=== PATIENT | female | born 1960 | race Caucasian/White ===

== ENCOUNTER → 2017-12-28 10:35 | Outpatient (REF) | payer MEDICARE, MEDICAID, SELFPAY ==
[2017-12-28 13:06] LABS: Occult Blood,Stool Negative (Negative)
[2017-12-28 13:06] LABS: Occult Blood,Stool Negative (Negative)
== END ==
LOC: LAB 10:35
PROVIDERS: Visit Provider Emergency Medicine
DX: D64.9 Anemia, unspecified (principal)
CPT/HCPCS: 82272; G0328

== ENCOUNTER → 2018-03-10 06:59 | Outpatient (CLI) | payer MEDICARE, MEDICAID, SELFPAY ==
--- NOTE | 2018-03-10 07:00 | CA_ITS ---
PROCEDURE: 2-D M-mode and color Doppler study INDICATIONS FOR THE TEST: Chest pain COPD Heart Murmur Tobacco SmokingX Palpitations Fatigue Syncope EdemaX HypertensionXDiabetes MellitusX Rheumatic Fever SOB CARDOSO Obesity HyperlipidemiaX Family History HD Additional History CAD,CVA PATIENT INFORMATION HEIGHT: 64 WEIGHT:215 GENDER: Female B/P:150/91 2-D/M-MODE INTERPRETATION: 2-D MEASUREMENTS OBSERVED VALUES IN CMS Right Ventricular Dimension (RVDd) 3.0 Interventricular Septum (Thickness)(IVsd) 1.1 Left Ventricular Internal Dimensions(LVIDd) 5.5 Left Ventricular Posterior Wall (Thickness)(LVPWd) 1.1 Aortic Root 3.2 Aortic Cusp Separation 1.4 Left Atrial Dimensions (LAD) 3.5 2D 1. Left atrium is mildly enlarged, left ventricle is normal size, mild concentric left ventricular hypertrophy, visually estimated ejection fraction 55% with no obvious regional wall motion abnormality. Endocardial surface of poorly visualized. 2. The right atrium and right ventricle are mildly enlarged with normal contractility. 3. The aortic valve is minimally thickened and fibrosed. 4. The mitral and tricuspid valve leaflets are minimally thickened. 5. The pulmonic valve is poorly visualized. 6. No significant pericardial effusion noted. DOPPLER INTERROGATION: Doppler interrogation of the aortic, mitral and tricuspid valvular presence of mild mitral and tricuspid regurgitation, tricuspid and jet velocity is insufficient for calculation of the right ventricular systolic pressure, grade 1 diastolic dysfunction seen with tissue Doppler evidence of raised left atrial pressure. CONCLUSION: 1. Mildly enlarged left atrium, normal left ventricular size, mild concentric left ventricular hypertrophy, visually estimated ejection fraction 55% with no obvious regional wall motion abnormality, endocardial surface of poorly visualized, grade 1 diastolic dysfunction seen with tissue Doppler evidence of raised left atrial pressure. 2. Mildly enlarged right ventricle with normal contractility. 3. Mild mitral and tricuspid regurgitation 4. No significant pericardial effusion noted.
--- NOTE | 2018-03-10 07:00 | NM_ITS ---
History and Indications: History of OR, hypertension, diabetes, hyperlipidemia, tobacco use, family history Procedure: Patient received a 0.4 mg of Lexiscan, resting heart rate was 71 bpm, resting blood pressure 171/96, with Lexiscan maximum heart rate achieved was 89 bpm which is less than 85% of the maximum predicted heart rate and a blood pressure was 145/85. With Lexiscan patient under shortness of breath and nausea. Electrocardiogram: Resting electrocardiogram showed sinus rhythm, with Lexiscan there is less than 1.[address] segment depression the baseline EKG. The EKG portion of the Lexiscan Myoview is nondiagnostic. Cardiac stress and resting SPECT images: Cardiac stress and resting SPECT images were obtained using technetium 99 Myoview 31.2 mCi at stress and 9.8 mCi at rest, gated SPECT further analysis of segmental wall motion and calculation of the ejection fraction also done. Cardiac stress and rest SPECT images show a partial reversible defect seen in the anteroapical and apical wall consistent with area of mixed ischemia and scar, computer derived ejection fraction of 47% with anteroapical and apical wall hypokinesis. Right ventricle is normal size and contractility. Conclusion: 1. The EKG portion of the Lexiscan Myoview is nondiagnostic. 2. Scintigraphic evidence of small area of extensive ischemia and scar involving the anteroapical and apical wall, computer derived ejection fraction is(& 47% with segmental wall motion abnormality described above, right ventricle is normal size and contractility. 3. Abnormal Lexiscan Myoview study.
--- NOTE | 2018-03-10 09:36 | HMH.ITSHM ---
carvedilol lyricca prilosec atorvastatin
== END ==
PROVIDERS: PCP Emergency Medicine; Visit Provider Internal Medicine
DX: I25.10 Atherosclerotic heart disease of native coronary artery without angina pectoris (principal); R94.31 Abnormal electrocardiogram [ECG] [EKG]
CPT/HCPCS: 78452; 93017; 93306; A9502; J2785

== ENCOUNTER → 2018-04-03 10:40 | Outpatient (CLI) | payer MEDICARE, MEDICAID, SELFPAY ==
--- NOTE | 2018-04-03 10:41 | CI_ITS ---
Cerebrovascular Exam Indications: 785.9 Bruit. 434.91 Cerebral artery occlusion unspecified with cerebral infarction. 782.0 Disturbance of skin sensation. IMPRESSIONS 1. The bilateral vertebral arteries are patent with normal antegrade flow. 2. Study suggests less than 20% stenosis involving the right internal carotid artery. 3. Study suggests less than 20% stenosis involving the left internal carotid artery. History: Left-sided weakness. Coronary artery disease. Risk factors: Hypertension. Diabetes mellitus. Hyperlipidemia. Labs, prior tests, procedures, and surgery: Left carotid stent. Labs, prior tests, procedures, and surgery: Left carotid stent. Carotid duplex study. Complete study and Doppler flow study including spectral analysis, color and stoner scale imaging. Height: Height: 162.6cm. Height: 64in. Weight: Weight: 95.7kg. Weight: 210.6lb. Body mass index: BMI: 36.2kg/m^2. Body surface area: BSA: 2.12m^2. Location: Vascular laboratory. Patient status: Outpatient. Tables: Arterial flow: + +--------+--------+ Location V sys V ed + +--------+--------+ Right CCA - proximal 74.6cm/s 18.9cm/s + +--------+--------+ Right CCA - distal 77cm/s 22.8cm/s + +--------+--------+ Right ECA 69.1cm/s -------- + +--------+--------+ Right ICA - proximal 80.1cm/s 20.4cm/s + +--------+--------+ Right ICA - mid 72.3cm/s 23.6cm/s + +--------+--------+ Right ICA - distal 56.6cm/s 21.2cm/s + +--------+--------+ Right vertebral 41.6cm/s -------- + +--------+--------+ Left CCA - proximal 77cm/s 18.1cm/s + +--------+--------+ Left CCA - distal 70.7cm/s 18.1cm/s + +--------+--------+ Left ECA 195cm/s -------- + +--------+--------+ Left ICA - proximal 75.4cm/s 21.2cm/s + +--------+--------+ Left ICA - mid 82.5cm/s 28.3cm/s + +--------+--------+ Left ICA - distal 58.4cm/s 19.7cm/s + +--------+--------+ Left vertebral 51.6cm/s -------- + +--------+--------+ Velocity ratios: + + + + + + Right, V sys Right, V ed Left, V sys Left, V ed + + + + + + Max ICA/dist CCA 1.04 1.04 1.17 1.56 + + + + + + (Report amended ) Electronically signed by: Adam Aponte [id number]
== END ==
PROVIDERS: PCP Emergency Medicine; Visit Provider Internal Medicine
DX: R42 Dizziness and giddiness (principal); I69.398 Other sequelae of cerebral infarction; I65.29 Occlusion and stenosis of unspecified carotid artery; R20.9 Unspecified disturbances of skin sensation
CPT/HCPCS: 93880

== ENCOUNTER → 2018-04-21 09:49 | Outpatient (CLI) | payer MEDICARE, MEDICAID, SELFPAY ==
[2018-04-21 10:37] VITALS: PULSE 81; PULSE 83
== END ==
PROVIDERS: PCP Emergency Medicine; Visit Provider Internal Medicine
DX: Z87.891 Personal history of nicotine dependence (principal)
CPT/HCPCS: 94060; 94640

== ENCOUNTER → 2019-02-06 12:54 | Outpatient (CLI) | payer MEDICARE, MEDICAID, SELFPAY ==
--- NOTE | 2019-02-06 13:16 | XR_ITS ---
XR DEXA axial skeleton HISTORY: ITS.REASON: [facility] MED USE,POST MENOPAUSAL ORDERING PHYSICIAN: Sharon Tovar MD PATIENT AGE: 58 years COMPARISON: None FINDINGS: The BMD measured at the Total Left femoral neck is 0.603 g/cm squared with a T score of -3.2. This is considered Osteoporotic according to the World Health Organization criteria. Fracture risk is High. Treatment is advised. IMPRESSION: Osteoporosis with high fracture risk. Treatment is advised. Suggest follow-up exam January 2020
--- NOTE | 2019-02-06 13:20 | CT_ITS ---
CT lung screening EXAM: CT LUNG LOW DOSE WO CONTRAST HISTORY: ITS.REASON: H/O NICOTINE DEPENDENCE ORDERING PHYSICIAN: Sharon Tovar MD PATIENT AGE: 58 years COMPARISON: None TECHNIQUE: The exam was performed on a GE Light Speed [address] scanner using 2.90 mGy CTDI. A low dose helical CT CHEST was performed on a multi-detector scanner. All CT scans at the facility use one or more dose reduction, viz: automated exposure control, ma/kV adjustment per patient size (including targeted exams where dose is matched to indication, i.e. head), or iterative reconstruction technique. The LDCT was performed in a facility that meets the criteria for the screening program. Data regarding this exam was submitted to ACR which is an approved registry. The order for this exam indicates that it came as a result of a lung cancer screening counseling shard decision-making visit that included all the elements required of such a visit including smoking cessation. The radiologist interpreting this exam meets the CMS criteria for the LDCT lung cancer screening program. The exam is reported using the Lung-RADS classification scale and reported to the ACR registry. NOTE: This study was performed for the specific purposes of lung cancer screening and is not an alternative to diagnostic chest CT. RADIATION DOSE: CTDI vol(CT dose Index-volume) = 2.90mG DLP (Dose Length Product) = 101.07 mGcm FINDINGS: Artifact is present in the right shoulder prosthesis. Calcified granuloma is present in the right lower lobe. No suspicious pulmonary nodules. Small precarinal lymph node is present at 1.5 cm and there is a small node in the right axilla at 1.1 cm. There has been prior right mastectomy. Coronary artery calcifications are present. There is mild thyromegaly IMPRESSION: 1. Lung RADS Category: 1, negative 2. Other findings: Coronary artery calcifications, mild thyromegaly RECOMMENDATIONS: 12 month LDCT follow-up
== END ==
PROVIDERS: PCP Emergency Medicine; Visit Provider Internal Medicine Medical Oncology
DX: Z78.0 Asymptomatic menopausal state (principal); Z12.2 Encounter for screening for malignant neoplasm of respiratory organs; Z87.891 Personal history of nicotine dependence; Z85.3 Personal history of malignant neoplasm of breast
CPT/HCPCS: 77080

== ENCOUNTER → 2019-02-20 08:47 | Outpatient (CLI) | payer MEDICARE, MEDICAID, SELFPAY ==
--- NOTE | 2019-02-20 08:54 | MM_ITS ---
MM Dig SC mamm unilat LT CAD CAD Screening COMPARISON: Diagnostic digital mammogram right breast 03/13/2013 and post ultrasound-guided biopsy right mammogram 03/26/2013 and digital bilateral mammograms with CAD 02/27/2013 INDICATION: There is been previous right mastectomy, there is a history of breast cancer patient maternal aunt. TECHNIQUE: Standard CC and MLO images were obtained. R2 CAD reviewed. FINDINGS: Scattered fibroglandular densities are seen throughout the breast. There are couple benign-appearing calcifications noted. There is minimal arterial calcification seen as well. There is a possible small asymmetric density central portion versus summation shadow and recommend patient return for spot compression views and ultrasound may be necessary as well. IMPRESSION: Fibrofatty parenchyma with possible asymmetric density as noted BI-RADS Category: 0 Need Additional Imaging Evaluation RECOMMENDED FOLLOW-UP: IMM - IMMEDIATE FOLLOW-UP RECOMMENDED (A letter has been sent to the patient regarding results of the study.)
== END ==
PROVIDERS: PCP Emergency Medicine; Visit Provider Emergency Medicine
DX: Z12.31 Encounter for screening mammogram for malignant neoplasm of breast (principal)
CPT/HCPCS: 77067

== ENCOUNTER → 2019-03-09 14:23 | Outpatient (CLI) | payer MEDICARE, MEDICAID, SELFPAY ==
--- NOTE | 2019-03-09 14:25 | MM_ITS ---
MM Dig mamm DX unilat LT CAD, US breast LT complete INDICATION: Follow-up abnormal mammogram ORDERING PHYSICIAN: Daniel Barba MD PATIENT AGE: 58 years COMPARISON: 02/20/2019, 03/13/2013 TECHNIQUE: Problem-solving views of the left breast performed along with left breast ultrasound . Technologist comments that the patient is very difficult to perform a mammogram on due to the fact that she has had a prior stroke. FINDINGS: On the cc view there was some persistent asymmetric density in the medial aspect of the left breast on the regular compression view. On the focal spot compression view this appeared less apparent with some faint residual density noted in this area but no definite nodule evident. There is some faint density noted in the upper aspect of the left breast on the MLO view spot. Left breast ultrasound: No discrete mass is evident. There are small nodes in the axilla. Specifically, no new nodules are demonstrated in the medial aspect or upper aspect of the left breast. IMPRESSION: Probably benign. There remains an asymmetric density in the upper inner aspect of left breast but no sonographic correlate. This area is also faint on the mammogram. Recommend 6 month mammographic follow-up with spot compression views BI-RADS Category: 3 Probably Benign Finding Short Term Follow-up RECOMMENDED FOLLOW-UP: 6M - 6 MONTH FOLLOW-UP (A letter has been sent to the patient regarding results of the study.)
== END ==
PROVIDERS: PCP Emergency Medicine; Visit Provider Emergency Medicine
DX: R92.8 Other abnormal and inconclusive findings on diagnostic imaging of breast (principal); Z85.3 Personal history of malignant neoplasm of breast
CPT/HCPCS: 76641; 77065

== ENCOUNTER → 2019-09-20 15:53 | Outpatient (CLI) | payer MEDICARE, MEDICAID, SELFPAY ==
[2019-09-20 16:02] LABS: Adenovirus F 40/41, stool Not Detected (NotDetected); Astrovirus Not Detected (NotDetected); Campylobacter Not Detected (NotDetected); Clostridium Difficile A/B, PCR Not Detected (NotDetected); Cryptosporidium Not Detected (NotDetected); Cyclospora Cayetanesis Not Detected (NotDetected); Entamoeba histolytica Not Detected (NotDetected); Enteroaggregative E coli Not Detected (NotDetected); Enteropathogenic E coli Not Detected (NotDetected); Enterotoxigenic E coli Not Detected (NotDetected); Giardia lamblia Not Detected (NotDetected); Norovirus Not Detected (NotDetected); Plesimonas Shigalloides, PCR Not Detected (NotDetected); Rotavirus A Not Detected (NotDetected); Salmonella, PCR Not Detected (NotDetected); Sapovirus Not Detected (NotDetected); Shiga-like toxin E coli Not Detected (NotDetected); Shigella Enterovasive E coli Not Detected (NotDetected); Vibrio Cholerae Not Detected (NotDetected); Vibrio, PCR Not Detected (NotDetected); Yersinia Entercolitica, PCR Not Detected (NotDetected)
== END ==
PROVIDERS: Visit Provider Emergency Medicine
DX: R19.7 Diarrhea, unspecified (principal)
CPT/HCPCS: 87507

== ENCOUNTER → 2019-09-21 12:46 | Outpatient (CLI) | payer MEDICARE, MEDICAID, SELFPAY ==
--- NOTE | 2019-09-21 12:46 | MM_ITS ---
PROCEDURE: MM DIG MAMM DX UNILAT LT CAD with 3D tomography CLINICAL INDICATION: abnormal mamm Follow-up abnormal mammogram COMPARISON: DIG MAMM-SCREEN [facility] from 02/20/2019 DIG MAMM-DX UNI-LT from 03/09/2019 TECHNIQUE: Standard CC and MLO images and 3D Tomosynthesis was obtained. R2 CAD reviewed. FINDINGS: Average fibroglandular tissue. Previously noted asymmetry in the upper and medial aspect of the left breast is less apparent. There is less muscle coverage on today's images. Benign-appearing calcifications are present. IMPRESSION: Benign findings, no evidence of malignancy. Recommend continue screening exam February 2020 BI-RAD Category: 2 Benign Finding(s) FOLLOW-UP: 6M 6Month Follow-up (A letter has been sent to the patient regarding results of the study.) Dictated by: Adam Aponte MD 09/22/2019 10:10 Electronically signed by Adam Aponte MD in [place] 09/22/2019 10:10
== END ==
PROVIDERS: PCP Emergency Medicine; Visit Provider Emergency Medicine
DX: R92.8 Other abnormal and inconclusive findings on diagnostic imaging of breast (principal); Z85.3 Personal history of malignant neoplasm of breast
CPT/HCPCS: 77061; 77065; G0279

== ENCOUNTER → 2020-01-31 14:26 | Outpatient (CLI) | payer MEDICARE, MEDICAID, SELFPAY ==
[2020-01-31 15:25] LABS: Basophils # 0.1 K/mm3 (0-0.2); Basophils % 0.8 % (0.1-2.0); Eosinophils # 0.1 K/mm3 (0.0-0.4); Eosinophils % 1.5 % (0.1-12.0); Hematocrit 33.5 % (37.0-47.0); Hemoglobin 10.1 g/dL (12.2-16.2); Lymphocytes # 1.6 K/mm3 (0.7-4.5); Lymphocytes % 21.6 % (10-50); Mean Corpuscular HGB Conc 30.2 g/dL (31.8-35.4); Mean Corpuscular Hemoglobin 23.5 pg (27.0-31.2); Mean Corpuscular Volume 77.9 fl (81-99); Mean Platelet Volume 7.7 fl (7.4-10.4); Monocytes # 0.6 K/mm3 (0.1-1.0); Monocytes % 7.4 % (1.7-9.3); Neutrophils # 5.2 K/mm3 (1.8-7.8); Neutrophils % 68.7 % (37.0-80.0); Platelet Count 311 K/mm3 (142-424); Red Cell Distribution Width 16.3 % (11.5-17.5); White Blood Count 7.5 K/mm3 (4.8-10.8)
[2020-01-31 18:26] LABS: Chloride 101 mmol/L (98-107); Potassium 4.4 mmoL/L (3.5-5.1); Sodium 134 mmol/L (136-145)
[2020-01-31 18:28] LABS: Alanine Aminotransferase 42 U/L (12-78); Aspartate Amino Transferase 79 U/L (14-36); Blood Urea Nitrogen 7 mg/dl (7-17); Estimated Glomerular Filt Rate 46 ml/min (>60); GFR (African American) 55 ML/MIN (>60)
[2020-01-31 18:29] LABS: Albumin Level 3.8 g/dl (3.5-5.0); Albumin/Globulin Ratio 1.3 (1.1-1.8); Alkaline Phosphatase 95 U/L (38-126); Anion Gap 15.4 mEq/L (5-15); Bilirubin,Total 0.3 mg/dl (0.2-1.3); Calcium 8.9 mg/dl (8.4-10.2); Carbon Dioxide 22 mmol/L (22.0-30.0); Glucose 135 mg/dl (74-100); Iron 28 ug/dL (37-170); Total Protein,Serum 6.8 g/dl (6.3-8.2)
[2020-01-31 18:37] LABS: Total Iron Binding Capacity 373 ug/dL (265-497)
[2020-02-01 15:30] LABS: Ferritin 5.97 ng/ml (11.1-264)
== END ==
PROVIDERS: Visit Provider Internal Medicine Medical Oncology
DX: D50.9 Iron deficiency anemia, unspecified (principal)
CPT/HCPCS: 36415; 80053; 82728; 83540; 83550; 85025

== ENCOUNTER 2020-02-04 12:25 | Outpatient (CLI) | payer MEDICARE, MEDICAID, SELFPAY ==
[2020-02-04 12:48] VITALS: BP 121/62; PULSE 83; RESP 18; TEMP 37.1; O2SAT 96
[2020-02-04 13:25] VITALS: BP 139/80; PULSE 77; RESP 18; O2SAT 97
== END 2020-02-04 13:25 | disposition home or self-care (01) ==
LOC: INF 12:25
PROVIDERS: Visit Provider Internal Medicine Medical Oncology
DX: D50.9 Iron deficiency anemia, unspecified (principal); M85.89 Other specified disorders of bone density and structure, multiple sites; T45.4X5A Adverse effect of iron and its compounds, initial encounter
CPT/HCPCS: 96365; 96372; J0897; J1439

== ENCOUNTER 2020-02-11 08:14 | Outpatient (CLI) | payer MEDICARE, MEDICAID, SELFPAY ==
--- NOTE | 2020-02-11 08:19 | CT_ITS ---
PROCEDURE: CT LUNG SCREENING CLINICAL INDICATION: H/O NICLOTINE DEPENDENCE Greater than 30 pack-year smoking history, asymptomatic for lung cancer COMPARISON: LUNGSCREEN CT lung screening from 02/06/2019 TECHNIQUE: The exam was performed on a GE Light Speed [address] scanner using 2.90 mGy CTDI. A low dose helical CT CHEST was performed on a multi-detector scanner. All CT scans at the facility use one or more dose reduction, viz: automated exposure control, ma/kV adjustment per patient size (including targeted exams where dose is matched to indication, i.e. head), or iterative reconstruction technique. The LDCT was performed in a facility that meets the criteria for the screening program. Data regarding this exam was submitted to ACR which is an approved registry. The order for this exam indicates that it came as a result of a lung cancer screening counseling shard decision-making visit that included all the elements required of such a visit including smoking cessation. The radiologist interpreting this exam meets the CMS criteria for the LDCT lung cancer screening program. The exam is reported using the Lung-RADS classification scale and reported to the ACR registry. NOTE: This study was performed for the specific purposes of lung cancer screening and is not an alternative to diagnostic chest CT. RADIATION DOSE: CTDI vol(CT dose Index-volume) = 2.90mG DLP (Dose Length Product) = 98.73 mGcm Lung Rads Category: FINDINGS: Old granulomatous disease. There is a 15 mm sub solid opacity in the right middle lobe image 45 series 3. This was not present on the previous exam. Atelectasis or fibrotic change noted in the right middle lobe. 4 mm noncalcified nodule image 59 series 3 right lower lobe unchanged OTHER FINDINGS: Coronary artery calcifications. Thyromegaly. Scattered small mediastinal lymph nodes not significantly changed. Small axillary nodes not significantly changed. IMPRESSION: Lung rads category 4 a mildly suspicious. 15 mm sub solid opacity right middle lobe. Recommend [address] without and with contrast Dictated by: Adam Aponte MD 02/17/2020 21:59 Electronically signed by Adam Aponte MD in [place] 02/17/2020 21:59
[2020-02-11 08:58] VITALS: BP 133/70; PULSE 72; RESP 18; TEMP 36.6; O2SAT 98
[2020-02-11 09:28] VITALS: BP 139/79; PULSE 76; RESP 18; O2SAT 97
[2020-02-11 09:35] VITALS: BP 148/76; PULSE 78; RESP 18; O2SAT 97
== END 2020-02-11 09:35 | disposition home or self-care (01) ==
LOC: RAD 08:30 → INF 08:43
PROVIDERS: PCP Emergency Medicine; Visit Provider Internal Medicine Medical Oncology
DX: Z87.891 Personal history of nicotine dependence (principal); Z12.2 Encounter for screening for malignant neoplasm of respiratory organs; D50.9 Iron deficiency anemia, unspecified; T45.4X5A Adverse effect of iron and its compounds, initial encounter
CPT/HCPCS: 96365; J1439

== ENCOUNTER → 2020-03-19 13:39 | Outpatient (CLI) | payer MEDICARE, MEDICAID, SELFPAY ==
--- NOTE | 2020-03-19 13:44 | MM_ITS ---
PROCEDURE: MM DIG SC MAMM UNILAT LT CAD DIGITAL BREAST TOMOSYNTHESIS INCLUDED Patient Age:59Y CLINICAL INDICATION: HX OF BREAST CANCER Right mastectomy for breast cancer. COMPARISON: DIG MAMM-SCREEN [facility] from 02/20/2019 MM DIG MAMM DX UNILAT LT CAD from 09/21/2019 TECHNIQUE: Standard CC and MLO images were obtained. R2 CAD reviewed. Bilateral digital breast tomosynthesis included. FINDINGS: Left breast appear stable with no new areas of concern. Average fibroglandular tissue with of moderate density... No dominant nor suspicious mass but no suspicious calcifications. Follow-up 1 year left breast recommended stable left IMPRESSION: Stable screening mammogram left breast. Follow-up 1 year recommended BI-RAD Category: 1 Negative FOLLOW-UP: 1YR 1 Year Follow-up (A letter has been sent to the patient regarding results of the study.) Dictated by: Jaylen Yung MD 03/24/2020 15:35 Electronically signed by Jaylen Yung MD in [place] 03/24/2020 15:35
--- NOTE | 2020-03-19 13:45 | US_ITS ---
PROCEDURE: US BREAST LT COMPLETE CLINICAL INDICATION: HX OF BREAST CANCER Follow-up left breast, history of right breast cancer COMPARISON: US BREASTLT US breast LT complete from 03/09/2019 FINDINGS: No cystic or solid lesions evident. IMPRESSION: BI-RADS category 1, negative Recommend annual follow-up Dictated b Adam Aponte MD 03/27/2020 18:08 Adam Aponte MD in [place] 03/27/2020 18:08
== END ==
PROVIDERS: PCP Emergency Medicine; Visit Provider Emergency Medicine
DX: Z85.3 Personal history of malignant neoplasm of breast (principal); Z12.31 Encounter for screening mammogram for malignant neoplasm of breast
CPT/HCPCS: 76641; 77063; 77067

== ENCOUNTER → 2020-03-25 07:34 | Outpatient (CLI) | payer MEDICARE, MEDICAID, SELFPAY ==
--- NOTE | 2020-03-25 | CA_ITS ---
APPROVED REPORT Exam: Pharmacologic Technologist: Denise Leslie Ht: 5 ft 3 in Wt: 212 lbs BSA: 1.98 m2 HR: 83 bpm BP: 132/64 mmHg Indications: Abnormal ekg 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 Medications: Amlodipine,,,,, Omeprazole,,,,, Aspirin,,,,, Metformin,,,,, Atorvastatin,,,,, HCTZ,,,,, Carvedilol,,,,, MeLOXICAM,,,,, CloPIdogrel,,,,, Baclofen,,,,, Venlafaxine,,,,, Trazodone,,,,, Stress Test Details Test: LEXISCAN HR Resting HR: 79 bpm Max Heart Rate (APMHR): 160 bpm Max HR Achieved: 93 bpm Target HR (85% APMHR): 136 bpm % of APMHR: 58 Recovery HR: 86 bpm BP Resting BP: 132.0/64.0 mmHg Max BP: 138.0/67.0 mmHg Recovery BP: 132.0/66.0 mmHg ECG Clinical Exercise duration: 04:00 min Highest Stage Achieved: Stress ECG Conclusion Resting ECG: Normal sinus rhythm, cannot rule out old septal IN, NS T wave abnormalities. Symptoms: Shortness of air, nausea, malaise. No chest pain. Arrhythmias/Ectopy: None ST-T Changes: Exaggeration of baseline T wave abnormalities. Conclusion: Unremarkable Lexiscan stress. [employer]view images reported seperately. Electronically signed by : Clint Larson, 03/25/2020 18:35:18
--- NOTE | 2020-03-25 07:34 | NM_ITS ---
APPROVED REPORT Exam: Nuclear Stress Test Indication: Abnormal EKG, Fatigue, CAD, Hx of PA, HTN, DM, Tobacco use, Family history Patient Location: Outpatient Stress Tech: Denise Leslie [place] Tech:Orquidea Pham, ARRT, RT (R)(N) Ht: 5 ft 3 in Wt: 212 lbs Bra Size: D HR: 83 bpm BP: 132/64 mmHg BSA: 1.98 m2 BMI: 37.5 History: Abnormal EKG, Fatigue, CAD, Hx of PA, HTN, DM, Tobacco use, Family history Procedure: Patient received a 0.4 mg of intravenous Lexiscan, resting heart rate 83 bpm, resting blood pressure 132/64 mmHg, with Lexiscan maximum heart rate achived was 91 bpm which is Less than 85 % of the maximum predicted heart rate and blood pressure was 138/67 mmHg. With Lexiscan, patient denied any complaint of chest pain. Electrocardiogram Resting electrocardiogram showed sinus rhythm, with Lexiscan there is less than 1.[address] segment depression noted from the baseline EKG. The EKG portion of the Lexiscan Myoview is nondiagnostic. Cardiac Stress and Resting SPECT Images: Cardiac Stress and Resting SPECT images were obtained using technetium 99m Myoview 31.0 mCi stress and 9.83 mCi at rest. Gated SPECT with analysis of segmental wall motion and calculation of the ejection fraction also done. Cardiac stress and resting SPECT images show partial reversible defect involving the anterior apical and anteroseptal wall. Consistent with mixed ischemia and scar. Computer derived ejection fraction is 53% with moderate anterior apical and anteroseptal wall hypokinesis. There is transient ischemic dilatation of the left ventricle is also seen. Conclusion: 1. The EKG portion of the Lexiscan Myoview is nondiagnostic. 2. Scintigraphic evidence of mixed ischemia and scar involving the anterior apical and anteroseptal wall, computer derived ejection fraction is 53% with segmental wall motion abnormality described above, there is transient ischemic dilatation of the left ventricle is also seen. 3. Abnormal Lexiscan Myoview study. Electronically signed by : Clint Larson, 03/25/2020 18:38:06
== END ==
PROVIDERS: PCP Emergency Medicine; Visit Provider Nurse Practitioner Family
DX: E11.59 Type 2 diabetes mellitus with other circulatory complications (principal); E78.5 Hyperlipidemia, unspecified; I11.9 Hypertensive heart disease without heart failure; I25.10 Atherosclerotic heart disease of native coronary artery without angina pectoris; I63.8 Other cerebral infarction; R60.9 Edema, unspecified; R94.31 Abnormal electrocardiogram [ECG] [EKG]; Z01.810 Encounter for preprocedural cardiovascular examination; Z72.0 Tobacco use; Z98.890 Other specified postprocedural states
CPT/HCPCS: 78452; 93017; A9502; J2785

== ENCOUNTER 2020-03-27 12:30 | Emergency (ER) | payer MEDICARE, MEDICAID, SELFPAY ==
[2020-03-27 12:32] VITALS: BP 144/74; PULSE 68; RESP 20; O2SAT 96; BMI 37.4
--- NOTE | 2020-03-27 12:40 | PC.NURSE ---
Spoke with Shauna at [facility]. States she will fax the patient's records.
--- NOTE | 2020-03-27 13:17 | CA_ITS ---
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 No reflux noted. Conclusion No evidence of DVT or superficial thrombophlebitis in the veins scanned of the left lower extremity. Electronically signed by : Adam Aponte MD 03/27/2020 17:14:12
--- NOTE | 2020-03-27 14:01 | PC.NURSE ---
Per CV lab, negative for blood clot. notified.
--- NOTE | 2020-03-27 14:15 | HMH.EDGENADL ---
ED Disposition Clinical Impression: Sunburn of first degree Disposition: Home, Self-Care Condition on Discharge: Fair Instructions: DI for Sunburn Additional Instructions: Checked your lower extremity for DVT and do not find a DVT; from your history it appears that you have a sunburn; plan is to provide you with a prescription for bacitracin; please apply this twice a day for 7 days Prescriptions: Bacitracin [Bacitracin Zinc Oint 30gm Tube] 10 gm TOPICAL BID 7 Days #60 oint...g. Transmission Status: Pending to [facility] Referrals: PCP,Hortensia [Primary Care Provider] - Time of Disposition: 14:22 - Critical Care Critical Care Time: No Attestation: On 03/27/20, the high probability of a clinically significant, sudden or life threatening deterioration of the following system(s) required my full and direct attention, intervention and personal management. The time I documented below is in addition to time spent performing reported procedures but includes the following listed in this critical care notation. Medical Decision Making - Medical Records Medical records reviewed: Yes: I reviewed the patient's medical records. - Jordi Inquiry Pt receiving controlled substance: No Vital Signs: 03/27/20 12:32 Pulse Rate [Radial] 68 Respiratory Rate 20 Blood Pressure [Right Arm] 144/74 H Blood Pressure Mean [Right Arm] 97 Blood Pressure Source [Right Arm] Automatic Cuff Blood Pressure Position [Right Arm] Sitting 02 Sat by Pulse Oximetry 96 Oxygen Delivery Method Room Air General Adult HPI - General Chief complaint: Extremity Injury, Lower Stated complaint: edema Time Seen by Provider: 03/27/20 14:00 Mode of Arrival: EMS Source of Information: Patient Limitations: No Limitations Description of Symptoms (Recalled from ER Triage Doc. by RN): While at a follow up appointment with Dr. Gudino they noticed swelling of the left foot. Patient refuses admission and says she is fine. - History of Present Illness HPI narrative: It was sent from 1 of the doctors offices with the concern that they had noticed pain and inflammation in her left leg and wanted to be evaluated for cellulitis and or DVT the patient is in no distress, states that she has been sitting out in the sun and has sunburn on both her extremities Onset (ago): day(s) Location: upper extremity, lower extremity Radiation: non-radiation Severity: mild Severity scale (1-10): 3 Quality: sharp Consistency: constant Relieving factors: none Exacerbating factors: none - Related Data Home Medications Medication Instructions Recorded Confirmed acetaminophen 500 mg tablet 500 mg PO Q6H PRN 02/28/18 03/27/20 anastrozole 1 mg tablet 1 mg PO DAILY tab 02/28/18 03/27/20 atorvastatin 40 mg tablet 40 mg PO QHS tab 02/28/18 03/27/20 carvedilol 12.5 mg tablet 12.5 mg PO BID 02/28/18 03/27/20 doxycycline monohydrate 100 mg 150 mg PO BID tab 02/28/18 03/27/20 tablet omeprazole 40 mg capsule,delayed 40 mg PO DAILY cap 02/28/18 03/27/20 release ondansetron HCl 4 mg tablet 4 mg PO QID PRN 02/28/18 03/27/20 trazodone 300 mg tablet 300 mg PO QHS 02/28/18 03/27/20 aspirin 81 mg tablet,delayed 81 mg PO DAILY tab 03/27/18 03/27/20 release loperamide 2 mg capsule 2 mg PO Q4H PRN 07/11/18 03/27/20 meloxicam 7.5 mg tablet 7.5 mg PO DAILY 07/11/18 03/27/20 alendronate 70 mg tablet 70 mg PO QWEEK 04/11/19 03/27/20 amlodipine 5 mg tablet 5 mg PO DAILY 04/11/19 03/27/20 baclofen 10 mg tablet 10 mg PO TID 04/11/19 03/27/20 pantoprazole 20 mg tablet,delayed 20 mg PO DAILY 04/11/19 03/27/20 release Clopidogrel Bisulfate [Plavix 75mg 75 mg PO QDAY 02/04/20 03/27/20 Tab] Pregabalin 50 mg PO TID 02/04/20 03/27/20 metformin 500 mg tablet 500 mg PO BID tab 03/19/20 03/27/20 venlafaxine 100 mg tablet 150 mg PO DAILY tab 03/19/20 03/27/20 pregabalin 50 mg capsule 50 mg PO TID 03/27/20 03/27/20 sitagliptin 100 mg tablet 100 mg PO DAILY 03/27/20 03/27/20
[2020-03-27 14:51] VITALS: BP 125/71; PULSE 104; O2SAT 97
[2020-03-27 15:06] VITALS: BP 125/71; PULSE 104; RESP 20; TEMP 36.7; O2SAT 97
== END 2020-03-27 15:08 | disposition home or self-care (01) ==
PROVIDERS: Emergency Provider Emergency Medicine
DX: L55.0 Sunburn of first degree (principal); R60.0 Localized edema; J44.9 Chronic obstructive pulmonary disease, unspecified; E11.9 Type 2 diabetes mellitus without complications; K21.9 Gastro-esophageal reflux disease without esophagitis; E78.5 Hyperlipidemia, unspecified; I10 Essential (primary) hypertension; I25.2 Old myocardial infarction; F41.8 Other specified anxiety disorders; I25.10 Atherosclerotic heart disease of native coronary artery without angina pectoris; F17.210 Nicotine dependence, cigarettes, uncomplicated; Z88.2 Allergy status to sulfonamides; Z88.8 Allergy status to other drugs, medicaments and biological substances
CPT/HCPCS: 93971; 99283

== ENCOUNTER → 2020-06-27 14:45 | Outpatient (CLI) | payer MEDICARE, MEDICAID, SELFPAY ==
--- NOTE | 2020-06-27 14:48 | MR_ITS ---
PROCEDURE: MR LUMBAR SPINE WO CON CLINICAL INDICATION: LBP LBP WITH RT HIP PAIN. PAINFUL TO RAISE RT LEG. SYMPTOMS [id number]. COMPARISON: No exams were available for comparison TECHNIQUE: Standard multiplanar multiecho sequences are performed without contrast. 3-D MIP and myelographic images are also rendered and reviewed FINDINGS: There is normal alignment. T11-T12: Degenerative disc disease. There is a small left paracentral disc herniation with superior extrusion. There is a cleft within the inferior endplate of the T12 vertebral body centrally very slightly eccentric toward the left extending anteriorly to posteriorly from the posterior aspect of the vertebral body to the mid way aspect of the vertebra possibly due to an old fracture. The herniated disc is causing flattening of the left aspect of the cord anteriorly the cord ends at the L1 level. T12-L1: Small left paracentral disc protrusion with degenerative disc disease and bulging disc with facet and ligamentum hypertrophy. L1-L2: Degenerative disc disease with bulging disc with mild facet and ligamentum hypertrophy. L2-L3: Mild facet and ligamentum hypertrophy. L3-L4: Mild facet and ligamentum hypertrophy. L4-5: Facet ligamentum hypertrophy with bulging disc with mild to moderate bilateral foraminal narrowing. There is bilateral lateral recess narrowing also present and borderline canal stenosis. L5-S1: Facet and ligamentum hypertrophy. There is a small right foraminal disc osteophyte complex causing some narrowing of the right foramen at this level. IMPRESSION: Abnormal MRI of the lumbar spine with multilevel lumbar spondylosis with bulging disc facet and ligamentum hypertrophy and degenerative disc disease. Please see above for detailed description at each level. T11-T12: Degenerative disc disease. There is a small left paracentral disc herniation with superior extrusion. There is a cleft within the inferior endplate of the T12 vertebral body centrally very slightly eccentric toward the left extending anteriorly to posteriorly from the posterior aspect of the vertebral body to the mid way aspect of the vertebra possibly due to an old fracture. The herniated disc is causing flattening of the left aspect of the cord anteriorly the cord ends at the L1 level. T12-L1: Small left paracentral disc protrusion with degenerative disc disease and bulging disc with facet and ligamentum hypertrophy Small right foraminal disc osteophyte complex at L5-S1 causing mild narrowing of the foramen on the right at that level. Dictated by: Adam Aponte MD 06/28/2020 15:37 Adam Aponte MD in [place] 06/28/2020 15:37
== END ==
PROVIDERS: PCP Emergency Medicine; Visit Provider Emergency Medicine
DX: M54.5 Low back pain (principal); M25.551 Pain in right hip; Z74.09 Other reduced mobility
CPT/HCPCS: 72148; 76376

== ENCOUNTER 2020-10-30 12:40 | Outpatient (CLI) | payer MEDICARE, MEDICAID, SELFPAY ==
[2020-10-30 12:45] VITALS: BMI 36.7
[2020-10-30 13:08] VITALS: BP 132/73; PULSE 91; RESP 18; TEMP 36.4; O2SAT 95
[2020-10-30 13:23] LABS: Basophils % 0.4 % (0.1-2.0); Eosinophils # 0.2 K/mm3 (0.0-0.4); Eosinophils % 3.3 % (0.1-12.0); Hematocrit 35.4 % (37.0-47.0); Hemoglobin 11.1 g/dL (12.2-16.2); Lymphocytes # 1.3 K/mm3 (0.7-4.5); Lymphocytes % 21.4 % (10-50); Mean Corpuscular HGB Conc 31.4 g/dL (31.8-35.4); Mean Corpuscular Hemoglobin 29.3 pg (27.0-31.2); Mean Corpuscular Volume 93.3 fl (81-99); Mean Platelet Volume 9.1 fl (7.4-10.4); Monocytes # 0.4 K/mm3 (0.1-1.0); Monocytes % 6.1 % (1.7-9.3); Neutrophils # 4.2 K/mm3 (1.8-7.8); Neutrophils % 68.8 % (37.0-80.0); Platelet Count 231 K/mm3 (142-424); Red Cell Distribution Width 14.1 % (11.5-17.5); White Blood Count 6.1 K/mm3 (4.8-10.8)
[2020-10-30 13:25] LABS: Chloride 103 mmol/L (98-107); Sodium 138 mmol/L (136-145)
[2020-10-30 13:26] LABS: Potassium 4.1 mmoL/L (3.5-5.1)
[2020-10-30 13:28] LABS: Alanine Aminotransferase 27 U/L (12-78); Albumin/Globulin Ratio 1.3 (1.1-1.8); Alkaline Phosphatase 105 U/L (38-126); Anion Gap 14.1 mEq/L (5-15); Aspartate Amino Transferase 38 U/L (14-36); Bilirubin,Total 0.4 mg/dl (0.2-1.3); Blood Urea Nitrogen 11 mg/dl (7-17); Calcium 8.3 mg/dl (8.4-10.2); Carbon Dioxide 25 mmol/L (22.0-30.0); Creatinine Clearance Estimated 82 mL/min (50-200); Estimated Glomerular Filt Rate 50 ml/min (>60); GFR (African American) 61 ML/MIN (>60); Glucose 190 mg/dl (74-100); Iron 77 ug/dL (37-170)
[2020-10-30 13:38] LABS: Total Iron Binding Capacity 168 ug/dL (265-497)
== END 2020-10-30 13:08 | disposition home or self-care (01) ==
LOC: INF 12:43
PROVIDERS: Visit Provider Internal Medicine Medical Oncology
DX: E61.1 Iron deficiency (principal)
CPT/HCPCS: 80053; 83540; 83550; 85025; 96372

== ENCOUNTER → 2020-10-31 12:44 | Outpatient (CLI) | payer MEDICARE, MEDICAID, SELFPAY ==
--- NOTE | 2020-10-31 12:49 | XR_ITS ---
PROCEDURE: XR HIP RT 2-3V W/PELVIS CLINICAL INDICATION: RT hip pain COMPARISON: No exams were available for comparison FINDINGS: There are mild osteoarthritic changes of the right hip. No acute fracture or dislocation. No lytic or blastic change. IMPRESSION: Mild osteoarthritis Dictated by: Adam Aponte MD 10/31/2020 14:17 Adam Aponte MD in [place] 10/31/2020 14:17
== END ==
PROVIDERS: PCP Emergency Medicine; Visit Provider Orthopaedic Surgery
DX: M25.551 Pain in right hip (principal)
CPT/HCPCS: 73502

== ENCOUNTER → 2020-11-07 12:46 | Outpatient (CLI) | payer MEDICARE, MEDICAID, SELFPAY ==
--- NOTE | 2020-11-07 | US_ITS ---
PROCEDURE: US BREAST LT COMPLETE CLINICAL INDICATION: Palpable lesion with bruising. COMPARISON: US US BREAST LT COMPLETE from 03/19/2020 MG MM DIG MAMM DX UNILAT LT CAD from 11/07/2020 FINDINGS: At the site of palpable lesion there is a bilobar heterogeneously echogenic area with the thickened margins is noted, predominantly located in the subcutaneous soft tissues at 1 o'clock position measuring 1.6 centimeters. No significant internal vascularity is noted. No other focal lesions. Left axillary lymph nodes are noted, demonstrate for central fatty hilum and normal morphology. IMPRESSION: Heterogeneously echogenic area at the area of concern measuring 1.6 centimeters. No significant internal vascularity. This may represent a hematoma. Focal lesions cannot be excluded. BI-RADS category 3, probably benign finding.Follow-up ultrasound in 3 months is recommended to evaluate for resolution. Dictated by: Sophia George 11/20/2020 14:01 Sophia George in [place] 11/20/2020 14:01
[2020-11-07 13:01] LABS: Basophils % 0.5 % (0.1-2.0); Eosinophils # 0.2 K/mm3 (0.0-0.4); Eosinophils % 2.9 % (0.1-12.0); Hematocrit 38.3 % (37.0-47.0); Hemoglobin 11.7 g/dL (12.2-16.2); Lymphocytes # 1.5 K/mm3 (0.7-4.5); Mean Corpuscular HGB Conc 30.5 g/dL (31.8-35.4); Mean Corpuscular Hemoglobin 28.6 pg (27.0-31.2); Mean Corpuscular Volume 93.6 fl (81-99); Mean Platelet Volume 8.4 fl (7.4-10.4); Monocytes # 0.4 K/mm3 (0.1-1.0); Monocytes % 5.4 % (1.7-9.3); Neutrophils # 4.8 K/mm3 (1.8-7.8); Neutrophils % 69.2 % (37.0-80.0); Platelet Count 304 K/mm3 (142-424); Red Blood Count 4.09 M/mm3 (4.20-5.40); Red Cell Distribution Width 13.5 % (11.5-17.5); White Blood Count 6.9 K/mm3 (4.8-10.8)
--- NOTE | 2020-11-07 13:03 | CT_ITS ---
PROCEDURE: CT CHEST W CON CLINCAL INDICATION: BREAST CA,PULMONARY NODULES COMPARISON: CT CT LUNG SCREENING from 02/11/2020 TECHNIQUE: IV Contrast: 75ml Isovue 370 Axial images obtained with sagittal and coronal reformats. All CT scans at the facility use one or more dose reduction, viz: automated exposure control, ma/kV adjustment per patient size (including targeted exams where dose is matched to indication, i.e. head), or iterative reconstruction technique. FINDINGS: HEART AND MEDIASTINAL STRUCTURES: Thyroid gland is enlarged. There is a 2 cm right thyroid nodule and a 1.9 cm left thyroid nodule. Thyroid ultrasound may provide further evaluation. There is 1.3 cm precarinal lymph node probably unchanged. Coronary artery calcifications and/or stents are noted. LUNGS AND PLEURAL SPACES: Calcified granuloma right lower lobe. Previously noted sub solid nodule in the right lower lobe is no longer apparent and may have been due to an area of atelectasis or infiltrate. No new nodules evident. BONY STRUCTURES: Degenerate changes thoracic spine UPPER ABDOMEN: Mild esophageal thickening noted nonspecific and could be related to nondistention or esophagitis. There has been a prior cholecystectomy. There is enlargement of the liver measuring 27 cm in transverse dimension. Scarring is present involving the kidneys. ADDITIONAL FINDINGS: Status post mastectomy on the right. IMPRESSION: No acute finding. Previously noted nodule in the right lower lobe is no longer apparent and may has been due to an area of atelectasis or infiltrate. No new nodules apparent. Enlarged thyroid gland with at least 2 nodules which are 2 and 1.9 cm. Ultrasound may provide further evaluation. Hepatomegaly. Prior right mastectomy Dictated by: Adam Aponte MD 11/08/2020 09:41 Adam Aponte MD in [place] 11/08/2020 09:41
[2020-11-07 13:04] LABS: Chloride 104 mmol/L (98-107); Potassium 4.1 mmoL/L (3.5-5.1); Sodium 138 mmol/L (136-145)
--- NOTE | 2020-11-07 13:05 | MM_ITS ---
PROCEDURE: MM DIG MAMM DX UNILAT LT CAD Digital Breast Tomosynthesis Included CLINICAL INDICATION: NEW MASS for 2 weeks with bruising. There is a history of previous right mastectomy 2013. There is a history of breast cancer in the patient's maternal aunts. COMPARISON: MG DIG MAMM-DX UNI-LT from 03/09/2019 MG MM DIG MAMM DX UNILAT LT CAD from 09/21/2019 MG MM DIG SC MAMM UNILAT LT CAD from 03/19/2020 TECHNIQUE: Standard CC and MLO images and 3D Tomosynthesis was obtained. R2 CAD reviewed. FINDINGS: A marker was placed on the skin at the site of the palpable lump. The breast is composed primarily of fat with diffuse fibroglandular elements noted. There is no abnormal density beneath the skin marker on the MLO projection. There is a small subtle density slightly medial and anterior to the skin marker only definitely seen on the CC projection. This was not seen on the previous left mammogram 03/19/2020. There are few scattered benign-appearing microcalcifications.. IMPRESSION: New asymmetric density left breast near the site of skin marker and patient's complaint and recommend the patient return for ultrasound evaluation of this area of the breast BI-RAD Category: 0 Need Additional Imaging Evaluation FOLLOW-UP: IMM Immediate Follow-up Recommended (A letter has been sent to the patient regarding results of the study.) Dictated by: Dr. Tho Mathew MD 11/11/2020 12:39 Dr. Tho Mathew MD in [place] 11/11/2020 12:39
[2020-11-07 13:06] LABS: Alanine Aminotransferase 29 U/L (12-78); Aspartate Amino Transferase 36 U/L (14-36); Blood Urea Nitrogen 8 mg/dl (7-17); Estimated Glomerular Filt Rate 46 ml/min (>60); GFR (African American) 55 ML/MIN (>60)
[2020-11-07 13:07] LABS: Albumin Level 4.5 g/dl (3.5-5.0); Albumin/Globulin Ratio 1.6 (1.1-1.8); Alkaline Phosphatase 83 U/L (38-126); Anion Gap 13.1 mEq/L (5-15); Bilirubin,Total 0.3 mg/dl (0.2-1.3); Calcium 8.7 mg/dl (8.4-10.2); Carbon Dioxide 25 mmol/L (22.0-30.0); Globulin 2.9 g/dL (1.3-3.2); Glucose 189 mg/dl (74-100); Total Protein,Serum 7.4 g/dl (6.3-8.2)
== END ==
PROVIDERS: PCP Emergency Medicine; Visit Provider Internal Medicine Medical Oncology
DX: C50.919 Malignant neoplasm of unspecified site of unspecified female breast (principal); R91.8 Other nonspecific abnormal finding of lung field; N63.20 Unspecified lump in the left breast, unspecified quadrant; Z80.3 Family history of malignant neoplasm of breast; R92.8 Other abnormal and inconclusive findings on diagnostic imaging of breast
CPT/HCPCS: 36415; 71260; 76641; 77061; 77065; 80053; 85025; G0279; Q9967

== ENCOUNTER → 2020-11-24 09:35 | Outpatient (CLI) | payer MEDICARE, MEDICAID, SELFPAY ==
--- NOTE | 2020-11-24 09:39 | US_ITS ---
PROCEDURE: US THYROID CLINICAL INDICATION: THYROID NODULE COMPARISON: No exams were available for comparison FINDINGS: Right lobe: 2.2cm x 4.6cm x 2.1cm. There is a 1.9 x 1.7 cm slightly hyperechoic nodule with central areas of cystic change within the mid aspect of the right lobe of the thyroid gland. No calcification. Left lobe: 2.2cm x 4.7cm x 1.8cm. 10 mm cyst in the mid polar region. 10 mm hypoechoic nodule lower pole with some posterior acoustical enhancement. Isoechoic nodule in the mid polar region at 14 mm x 8 mm. No calcification of these nodules. The nodules are parallel and fairly well-circumscribed. Isthmus: Unremarkable Additional findings: IMPRESSION: Bilateral TR level 3 nodules less than 2.5 cm. Recommend six-month follow-up. Dictated by: Adam Aponte MD 11/25/2020 14:39 Adam Aponte MD in [place] 11/25/2020 14:39
== END ==
PROVIDERS: PCP Emergency Medicine; Visit Provider Internal Medicine Medical Oncology
DX: E04.1 Nontoxic single thyroid nodule (principal)
CPT/HCPCS: 76536

== ENCOUNTER → 2021-02-02 13:07 | Outpatient (POV) | payer MEDICARE, MEDICAID, SELFPAY | PROVIDERS: Visit Provider Internal Medicine Nephrology | DX: Z00.00 Encounter for general adult medical examination without abnormal findings (principal) ==

== ENCOUNTER → 2021-02-19 13:05 | Outpatient (CLI) | payer MEDICARE, MEDICAID, SELFPAY ==
--- NOTE | 2021-02-19 13:13 | US_ITS ---
PROCEDURE: US BREAST LT COMPLETE CLINICAL INDICATION: ABN MAMM, 3 MONTH F/U COMPARISON: MG MM DIG MAMM DX UNILAT LT CAD from 11/07/2020 US US BREAST LT COMPLETE from 11/07/2020 FINDINGS: Previous ultrasound demonstrated what was felt to represent a hematoma in the 1 o'clock region of the left breast Ultrasound was performed of this region showing interval resolution of the previous described abnormality. There is a small fluid collection however cephalad to the previously described abnormality measuring 16 by 4 x 23 mm. This is superior to the bruise. Also superior to the bruise at 2 o'clock there is a hypoechoic nodule measuring 11 x 12 x 3 mm suggestive of a lymph node. No other abnormalities are apparent. IMPRESSION: Originally noted lesion at 1 o'clock appears to have resolved. A septated fluid collection is present at 2 o'clock and superior to the bruise and could represent an additional small resolving hematoma or seroma with a small lymph node at this region. Findings appear benign. BI-RADS category 3 probably benign. Recommend six-month follow-up ultrasound to confirm stability/resolution Dictated by: Adam Aponte MD 02/25/2021 12:39 Adam Aponte MD in [place] 02/25/2021 12:39
== END ==
PROVIDERS: PCP Emergency Medicine; Visit Provider Internal Medicine Medical Oncology
DX: R92.8 Other abnormal and inconclusive findings on diagnostic imaging of breast (principal)
CPT/HCPCS: 76641

== ENCOUNTER 2021-05-06 13:06 | Outpatient (CLI) | payer MEDICARE, MEDICAID, SELFPAY ==
[2021-05-06 13:25] VITALS: BP 146/78; PULSE 87; RESP 20; TEMP 36.4; O2SAT 96
== END 2021-05-06 13:50 | disposition home or self-care (01) ==
LOC: INF 13:09
PROVIDERS: PCP Emergency Medicine; Visit Provider Internal Medicine Medical Oncology
DX: Z85.3 Personal history of malignant neoplasm of breast (principal)
CPT/HCPCS: 96372; J0897

== ENCOUNTER → 2021-06-01 13:02 | Outpatient (CLI) | payer MEDICARE, MEDICAID, SELFPAY ==
--- NOTE | 2021-06-01 13:06 | US_ITS ---
PROCEDURE: US THYROID CLINICAL INDICATION: BREAST CANCER Follow-up thyroid nodules COMPARISON: US US THYROID from 11/24/2020 FINDINGS: Right lobe: 4.3 x 2.4 x 2.5 cm. A mixed cystic and solid nodule is present in the lower pole at 16 x 15 mm. The nodule is hyperechoic with cystic areas centrally. Not significantly changed. Left lobe: 4.4 x 2 x 2.2 cm. A vague hypoechoic areas present in the upper pole without discrete margins and may only be related to heterogeneous echogenicity. A mixed cystic and solid nodule measuring 14 x 13 mm is present in the mid polar region not significantly change. In the distal cystic nodules present in the lower pole at 7 mm. In the lower pole posteriorly there is a hypoechoic nodule wider than tall well-circumscribed and may contain some internal cystic areas measuring 9 x 6 mm unchanged Isthmus: Is unremarkable Additional findings: IMPRESSION: No change bilateral thyroid nodules. Annual follow-up suggested. Dictated by: Adam Aponte MD 06/02/2021 08:13 Adam Aponte MD in [place] 06/02/2021 08:13
== END ==
PROVIDERS: PCP Emergency Medicine; Visit Provider Internal Medicine Medical Oncology
DX: E04.1 Nontoxic single thyroid nodule (principal); Z85.3 Personal history of malignant neoplasm of breast; F17.200 Nicotine dependence, unspecified, uncomplicated
CPT/HCPCS: 76536

== ENCOUNTER → 2021-09-22 13:32 | Outpatient (CLI) | payer MEDICARE, MEDICAID, SELFPAY ==
--- NOTE | 2021-09-22 13:43 | US_ITS ---
PROCEDURE INFORMATION: Exam: US Left Breast, Complete Exam date and time: 09/22/2021 1:43 PM Age: 61 years old Clinical indication: fu unusual lt breast bruising TECHNIQUE: Imaging protocol: Complete ultrasound of all four quadrants of the Left breast and the retroareolar regions, including ultrasound of the axilla when performed. COMPARISON: US BREAST LT COMPLETE 02/19/2021 1:17 PM FINDINGS: Breast: Sonographic images of the left breast including the retroareolar region, all 4 quadrants and the axilla do not demonstrate any solid or cystic masses. Previously noted left upper outer quadrant fluid collection has resolved. Cursors were placed over a prominent fat lobule in the upper outer quadrant 12 cm from the nipple. No architectural distortion or acoustical shadowing. No skin thickening or axillary adenopathy. IMPRESSION: No sonographic evidence of malignancy. Annual bilateral mammographic screening is recommended at the current time if the patient has not already done so ASSESSMENT: BI-RADS Category 1: Negative
== END ==
PROVIDERS: PCP Emergency Medicine; Visit Provider Internal Medicine Medical Oncology
DX: C50.912 Malignant neoplasm of unspecified site of left female breast (principal)
CPT/HCPCS: 76641

== ENCOUNTER 2021-11-11 12:42 | Outpatient (CLI) | payer MEDICARE, MEDICAID, SELFPAY ==
[2021-11-11 13:10] VITALS: BP 163/54; PULSE 92; RESP 16; TEMP 36.8; O2SAT 94
== END 2021-11-11 13:25 | disposition home or self-care (01) ==
LOC: INF 12:43
PROVIDERS: PCP Emergency Medicine; Visit Provider Internal Medicine Medical Oncology
DX: C50.912 Malignant neoplasm of unspecified site of left female breast (principal); M81.0 Age-related osteoporosis without current pathological fracture
CPT/HCPCS: 96372; J0897

== ENCOUNTER → 2022-03-01 15:28 | Outpatient (POV) | payer MEDICARE, MEDICAID, SELFPAY | PROVIDERS: Visit Provider Internal Medicine Nephrology | DX: Z00.00 Encounter for general adult medical examination without abnormal findings (principal) ==

== ENCOUNTER → 2022-05-14 11:38 | Outpatient (CLI) | payer MEDICARE, MEDICAID, SELFPAY ==
--- NOTE | 2022-05-14 11:44 | XR_ITS ---
FINAL REPORT CLINICAL HISTORY: Bunion FINDINGS: 3 views of the left foot were obtained. There is no acute fracture or dislocation. There is mild hallux valgus deformity. There are mild hypertrophic changes of osteoarthritis at the 1st and 2nd metatarsophalangeal joints. IMPRESSION: Mild hallux valgus deformity with mild changes of osteoarthritis at the 1st and 2nd MTP joints. Reviewed, Interpreted and Dictated by Huber Evans MD Transcribed by Myron Redd Authenticated and [facility]
== END ==
PROVIDERS: PCP Emergency Medicine; Visit Provider Orthopaedic Surgery
DX: M79.672 Pain in left foot (principal)
CPT/HCPCS: 73630

== ENCOUNTER → 2022-05-18 09:56 | Outpatient (CLI) | payer MEDICARE, MEDICAID, SELFPAY ==
--- NOTE | 2022-05-18 10:52 | US_ITS ---
FINAL REPORT CLINICAL HISTORY: LT BUNION SURGERY PRE-OP,CLAUDICATION,DM,SMOKER,HTN,CAD FINDINGS: LOWER EXTREMITY SEGMENTAL PRESSURE MEASUREMENTS FINDINGS: Pressure indices are as follows: RIGHT LOWER EXTREMITY: Thigh: 0.90 Calf: 0.95 Ankle, posterior tibial artery: 1.03 Ankle, dorsalis pedis: 1.21 Toe: 0.84 Comments: Normal LEFT LOWER EXTREMITY: Thigh: 0.95 Calf: 0.97 Ankle, posterior tibial artery: 1.15 Ankle, dorsalis pedis: 1.34 Toe: 0.81 Comments: Normal CONCLUSION: No evidence of significant obstructive peripheral vascular disease of the lower extremities Reviewed, Interpreted and Dictated by Ad Garcia MD Transcribed by Geena Randall Authenticated and . [facility]
== END ==
PROVIDERS: PCP Emergency Medicine; Visit Provider Orthopaedic Surgery
DX: M79.672 Pain in left foot (principal); I70.213 Atherosclerosis of native arteries of extremities with intermittent claudication, bilateral legs
CPT/HCPCS: 93923

== ENCOUNTER 2022-05-26 12:55 | Outpatient (CLI) | payer MEDICARE, MEDICAID, SELFPAY ==
[2022-05-26 13:17] VITALS: BP 145/69; PULSE 75; RESP 16; O2SAT 94
== END 2022-05-26 13:25 | disposition home or self-care (01) ==
PROVIDERS: PCP Emergency Medicine; Visit Provider Internal Medicine Medical Oncology
DX: M81.0 Age-related osteoporosis without current pathological fracture (principal); Z85.3 Personal history of malignant neoplasm of breast
CPT/HCPCS: 96372

== ENCOUNTER → 2022-07-23 12:16 | Outpatient (CLI) | payer MEDICARE, MEDICAID, SELFPAY ==
--- NOTE | 2022-07-23 12:25 | CA_ITS ---
FINAL REPORT TECHNIQUE: Grayscale and color Doppler ultrasound images with graded compression of the deep venous system were obtained from the groin to the calf veins bilaterally. CLINICAL HISTORY: Swelling/SOB,EDEMA LLE FINDINGS: The deep venous system is normal. There is no evidence of DVT. Flow and compressibility are normal. There are left inguinal lymph nodes measuring up to 2.7 cm. IMPRESSION: No evidence of left or right lower extremity DVT. Reviewed, Interpreted and Dictated by Huber Evans MD Transcribed by Myron Redd Authenticated and [facility]
[2022-07-23 12:54] LABS: Basophils % 0.4 % (0.1-2.0); Eosinophils # 0.2 K/mm3 (0.0-0.4); Eosinophils % 2.7 % (0.1-12.0); Hematocrit 33.3 % (37.0-47.0); Hemoglobin 10.2 g/dL (12.2-16.2); Lymphocytes # 0.9 K/mm3 (0.7-4.5); Mean Corpuscular HGB Conc 30.7 g/dL (31.8-35.4); Mean Corpuscular Hemoglobin 24.3 pg (27.0-31.2); Mean Corpuscular Volume 79.1 fl (81-99); Mean Platelet Volume 8.7 fl (7.4-10.4); Monocytes # 0.5 K/mm3 (0.1-1.0); Monocytes % 6.1 % (1.7-9.3); Neutrophils # 6.4 K/mm3 (1.8-7.8); Neutrophils % 79.7 % (37.0-80.0); Platelet Count 397 K/mm3 (142-424); Red Blood Count 4.21 M/mm3 (4.20-5.40); Red Cell Distribution Width 17.3 % (11.5-17.5)
[2022-07-23 13:07] LABS: D-Dimer 1.07 ug/mL (0.0-0.5)
[2022-07-23 13:35] LABS: Alanine Aminotransferase 18 U/L (12-78); Albumin Level 4.1 g/dl (3.5-5.0); Albumin/Globulin Ratio 1.5 (1.1-1.8); Alkaline Phosphatase 84 U/L (38-126); Aspartate Amino Transferase 28 U/L (14-36); Bilirubin,Total 0.3 mg/dl (0.2-1.3); Blood Urea Nitrogen 20 mg/dl (7-17); Calcium 9.3 mg/dl (8.4-10.2); Carbon Dioxide 28 mmol/L (22.0-30.0); Chloride 92 mmol/L (98-107); Estimated Glomerular Filt Rate 45 ml/min (>60); GFR (African American) 55 ML/MIN (>60); Globulin 2.8 g/dL (1.3-3.2); Glucose 102 mg/dl (74-100); Sodium 130 mmol/L (136-145); Total Protein,Serum 6.9 g/dl (6.3-8.2)
[2022-07-23 13:40] LABS: C-Reactive Protein 5.2 mg/L (0-4)
[2022-07-23 13:44] LABS: NT Pro Brain Natriuretic Pep. 2390 pg/mL (0-125)
[2022-07-23 15:53] LABS: Anion Gap 14.7 mEq/L (5-15); Potassium 4.7 mmoL/L (3.5-5.1)
== END ==
PROVIDERS: PCP Emergency Medicine; Visit Provider Internal Medicine Pulmonary Disease
DX: R06.02 Shortness of breath (principal); R06.09 Other forms of dyspnea; J45.909 Unspecified asthma, uncomplicated; J84.9 Interstitial pulmonary disease, unspecified
CPT/HCPCS: 36415; 80053; 83880; 85025; 85378; 86140; 93970

== ENCOUNTER 2022-07-28 07:54 | Inpatient (IN) | payer MEDICARE, MEDICAID, SELFPAY ==
[2022-07-28] VITALS (17 sets, daily range): BP systolic 99–144; BP diastolic 57–80; PULSE 46–82; RESP 16–27; TEMP 36.4–37.1; O2SAT 88–100; BMI 34.4; BMI 35.5; BMI 42.0
--- NOTE | 2022-07-28 07:50 | ECG_ITS ---
APPROVED REPORT Exam: Resting ECG HR:93 bpm ECG Measurements Heart Rate 93 AXES RI 195 P 48 QRSd 102 QRS 4 QT 360 T 81 QTc 411 Conclusion SINUS RHYTHM WITH FREQUENT VENTRICULAR PREMATURE COMPLEXES LOW QRS VOLTAGE IN EXTREMITY LEADS [QRS DEFLECTION < 0.5 mV IN LIMB LEADS] POSSIBLE ANTERIOR MYOCARDIAL INFARCTION , OF INDETERMINATE AGE [30 ms Q WAVE IN V3/V4, OR R < 0.2 mV IN V4] ABNORMAL ECG UNCONFIRMED REPORT Electronically signed by : Vignesh Fernandez MD 07/28/2022 21:53:25
[2022-07-28 08:02] LABS: ABG Base Excess 4.9 mmol/L (-2.4-2.3); ABG Oxygen Saturation 89 % (90-100); ABG PH 7.38 mmol/L (7.35-7.45); ABG PO2 58.5 mmhg (80-100); ABG TCO2 31.6 mmhg (23-27)
[2022-07-28 08:04] LABS: Allen's Test acceptable; Oxygen 100% %; Source Right Radial
[2022-07-28 08:06] LABS: ABG PCO2 51.8 mmhg (35.0-45.0)
--- NOTE | 2022-07-28 08:06 | PC.NURSE ---
resp called with ABG results they are placing pt on bipap
--- NOTE | 2022-07-28 08:08 | XR_ITS ---
FINAL REPORT CLINICAL HISTORY: sob, former smoker FINDINGS: A single portable view of the chest was obtained. There is cardiomegaly. There is pulmonary vascular congestion. There are bilateral pulmonary opacities, edema or bilateral pneumonia. The mediastinum is within normal limits. There are postoperative changes in the right shoulder. IMPRESSION: Cardiomegaly with pulmonary vascular congestion. Bilateral pulmonary opacities, edema or bilateral pneumonia. Reviewed, Interpreted and Dictated by Arie Orozco III, MD Transcribed by Geena Randall Authenticated and [facility]
[2022-07-28 08:19] LABS: Chloride 92 mmol/L (98-107); Potassium 4.6 mmoL/L (3.5-5.1); Sodium 133 mmol/L (136-145)
[2022-07-28 08:22] LABS: Anion Gap 13.6 mEq/L (5-15); Blood Urea Nitrogen 15 mg/dl (7-17); Calcium 9.4 mg/dl (8.4-10.2); Carbon Dioxide 32 mmol/L (22.0-30.0); Creatinine Clearance Estimated 70 mL/min (50-200); Estimated Glomerular Filt Rate 41 ml/min (>60); GFR (African American) 50 ML/MIN (>60); Glucose 112 mg/dl (74-100); Lactic Acid 1.3 mmol/L (0.7-2.1)
[2022-07-28 08:25] LABS: Basophils % 0.5 % (0.1-2.0); Eosinophils # 0.3 K/mm3 (0.0-0.4); Eosinophils % 3.2 % (0.1-12.0); Hematocrit 32.1 % (37.0-47.0); Mean Corpuscular HGB Conc 31.2 g/dL (31.8-35.4); Mean Platelet Volume 8.5 fl (7.4-10.4); Monocytes # 0.6 K/mm3 (0.1-1.0); Monocytes % 7.2 % (1.7-9.3); Neutrophils # 6.7 K/mm3 (1.8-7.8); Neutrophils % 77.1 % (37.0-80.0); Platelet Count 403 K/mm3 (142-424); Red Blood Count 4.17 M/mm3 (4.20-5.40); Red Cell Distribution Width 17.3 % (11.5-17.5); White Blood Count 8.7 K/mm3 (4.8-10.8)
[2022-07-28 08:38] LABS: NT Pro Brain Natriuretic Pep. 4450 pg/mL (0-125)
[2022-07-28 08:40] LABS: Troponin I 0.01 ng/ml (0.00-0.034)
--- NOTE | 2022-07-28 08:50 | HMH.EDSOB ---
Discharge Plan Disposition Patient Disposition: Admitted As Inpatient Clinical Impressions Clinical Impression: CHF exacerbation Discharge ED Provider: Melissa Hinojosa Resp/SOB HPI General Chief Complaint: Shortness of Breath/Dyspnea Stated Complaint: shortness of breath Time Seen by Provider: 07/28/22 08:00 Mode of Arrival: EMS Source of Information: Patient Limitations: No Limitations Description of Symptoms (Recalled from ER Triage Doc. by RN): pt to ed c/o SOA and bilateral lower extremity swelling. pt reports seeing pulmonology for her breathing. History of Present Illness Miss Tovar is a 62 yo female w/ PMH significant for CHF, ARA, COPD, hx of breast cancer, HLD, HTN tobacco abuse, CVA and DM presenting to the emergency department of progressively worsening dyspnea and bilateral LE swelling over the last week. Denies chest pain. Patient reports her breathing has not improved despite her inhalers. Patient reports she see's pulmonology for her breathing. She denies any fevers, cough or other infectious like symptoms. No pain in LE. Patient take rivoroxiban given hx of DVT. MD Complaint: shortness of breath Onset (ago): day(s) Severity: moderate Consistency/Duration: constant Relieving factors: oxygen Exacerbating factors: lying flat and exertion Known history of: COPD, congestive heart failure and diabetes Associated symptoms: wheezing Treatment prior to arrival: oxygen Related Data Home Medications Medication Instructions Recorded Confirmed acetaminophen 500 mg tablet 500 mg PO Q6HP PRN Mild Pain 02/28/18 07/28/22 (Scale Score 1-4) anastrozole 1 mg tablet 1 mg PO DAILY breast cancer 02/28/18 07/28/22 atorvastatin 40 mg tablet 40 mg PO HS Cholesterol 02/28/18 07/28/22 carvedilol 12.5 mg tablet 12.5 mg PO BID Hypertension 02/28/18 07/28/22 loperamide 2 mg capsule 2 mg PO Q4HP PRN Diarrhea 07/11/18 07/28/22 alendronate 70 mg tablet (Fosamax) 70 mg PO WEEKLY Osteoporosis 04/11/19 07/28/22 amlodipine 5 mg tablet (Norvasc) 5 mg PO DAILY Hypertension 04/11/19 07/28/22 baclofen 10 mg tablet 10 mg PO TID muscle spasms 04/11/19 07/28/22 pantoprazole 20 mg tablet,delayed 20 mg PO DAILY GERD 04/11/19 07/28/22 release (Protonix) clopidogrel 75 mg tablet 75 mg PO DAILY 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 02/04/20 07/28/22 calcium carbonate 600 mg-vitamin 1 tab PO BID Supplement 10/30/20 07/28/22 D3 10 mcg (400 unit) tablet rivaroxaban 15 mg tablet (Xarelto) 15 mg PO QPMWITHMEAL Blood thinner 03/13/21 07/28/22 HX DVT fluticasone propionate 50 1 spray intranasal BID allergies 05/06/21 07/28/22 mcg/actuation nasal spray,suspension multivitamin with minerals 1 each PO DAILY Supplement 05/06/21 07/28/22 sennosides 8.6 mg tablet 17.2 mg PO HSP PRN Constipation 05/06/21 07/28/22 doxycycline monohydrate 100 mg 150 mg PO BID Infection 07/28/22 07/28/22 tablet ferrous sulfate 325 mg (65 mg 325 mg PO DAILY Supplement 07/28/22 07/28/22 iron) tablet (iron) glipizide 2.5 mg tablet, extended 2.5 mg PO DAILY Diabetes 07/28/22 07/28/22 release 24 hr insulin glargine 100 unit/mL (3 8 unit SQ HS Diabetes 07/28/22 07/28/22 mL) subcutaneous pen (Basaglar KwikPen U-100 Insulin) ipratropium 0.5 mg-albuterol 3 mg 3 ml inhalation Q6HP PRN Shortness 07/28/22 07/28/22 (2.5 mg base)/3 mL nebulization Of Breath soln metformin 1,000 mg tablet 1,000 mg PO BID Diabetes 07/28/22 07/28/22 ondansetron 4 mg disintegrating 4 mg PO Q6HP PRN Nausea And 07/28/22 07/28/22 tablet Vomiting sitagliptin phosphate 50 mg tablet 50 mg PO DAILY Diabetes 07/28/22 07/28/22 (Januvia) trazodone 150 mg tablet 300 mg PO HS SLEEP 07/28/22 07/28/22 venlafaxine 150 mg 150 mg PO DAILY MOOD 07/28/22 07/28/22 capsule,extended release 24 hr Previous Rx's Medication Instructions Recorded pregabalin 50 mg capsule 50 mg PO TID nerve pain #90 caps 06/18/22 oxycodone-acetaminophen 5 mg-325 1 tab PO BID Pain #60 tabs 07/26/22 mg tablet Allergies Allergy/AdvRe
--- NOTE | 2022-07-28 09:42 | PC.NURSE ---
talked with CM about bed assignment
--- NOTE | 2022-07-28 10:24 | PC.NURSE ---
report called to [facility]
[2022-07-28 10:30] LABS: Coronavirus 19, PCR Not Detected (NotDetected); Influenza A, PCR Not Detected (NotDetected); Influenza B, PCR Not Detected (NotDetected)
--- NOTE | 2022-07-28 11:40 | PC.NURSE ---
PT ARRIVED TO FLOOR VIA STRETCHER
[2022-07-28 12:04] LABS: Troponin I 0.01 ng/ml (0.00-0.034)
--- NOTE | 2022-07-28 12:20 | P.CONPHA_ITS ---
Pharmacy Intervention Comments: MEDICATION RECONCILIATION COMPLETED ON PATIENT USING MAR FROM [facility]. -CHERI STRINGER, DANIELD
--- NOTE | 2022-07-28 12:20 | HMH.PHAINT1 ---
Pharmacy Intervention Comments: MEDICATION RECONCILIATION COMPLETED ON PATIENT USING MAR FROM [facility]. -CHERI STRINGER, DANIELD
--- NOTE | 2022-07-28 15:05 | EXP.HP ---
History of Present Illness *Admission Date: 07/28/22 *Reason for visit:: Shortness of air *History of present illness: This is a 62-year-old female who presents to [facility] emergency department from her [facility] group home for shortness of air. Her past medical history is significant for chronic hypoxic respiratory failure on home O2 at 3 L via nasal cannula, hepatomegaly, right breast cancer 2013, coronary artery disease, CVA with left-sided deficit and diabetes. She has identified increasing shortness of air over the last 48 hours not improving with her home medication regiment. She describes shortness of air made worse with exertion. She reports an occasional cough but no sputum production. She reports orthopnea. She denies associated retrosternal chest pain, palpitations or increasing pedal edema. In the ED her troponins are negative and her BNP is elevated at greater than 4000. Her chest x-ray is consistent with cardiomegaly and pulmonary edema. [facility] Disclaimer: The information contained in this section may have been updated after the patient was seen, as this information can be updated by other users. 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 (Updated 07/28/22 @ 15:31 by Gregg Morgan MD) Arthritis of knee, left CAD (coronary artery disease) Chronic respiratory failure with hypoxia CVA (cerebral vascular accident) CVA, old, alterations of sensations Diabetes mellitus Diastolic dysfunction Dyslipidemia Dyspnea on exertion Edema Encounter for pre-operative cardiovascular clearance Foot pain HHD (hypertensive heart disease) History of breast cancer History of smoking 30 or more pack years Left leg swelling Positive D-dimer Tobacco abuse Surgical History History of CEA (carotid endarterectomy) History of right mastectomy Social History Smoking Status: Never smoker smoking status stop date: 06/2022 alcohol intake: never substance use type: denies use current occupational status: disabled Travel in the last 8 weeks: None household members: other housing: group home caffeine: Yes Review of Systems Review of Systems Review of systems:: pertinent systems reviewed and negative unless documented below Constitutional Constitutional: Denies chills and Denies fever(s) ENT Ears, Nose, Mouth, and Throat: Denies nasal congestion and Denies sore throat *Cardiovascular Cardiovascular: Denies chest pain, Reports dyspnea, Reports dyspnea on exertion, Denies edema and Reports orthopnea *Respiratory Respiratory: Reports cough, Reports dyspnea, Reports dyspnea on exertion, Denies hemoptysis and Denies pain with cough *Gastrointestinal Gastrointestinal: Denies nausea and Denies vomiting *Neurologic Neurologic: Denies confusion Psychiatric Psychiatric: Denies confusion Meds Home Medications and Allergies Home Medications Medication Instructions Recorded Confirmed Type acetaminophen 500 mg tablet 500 mg PO Q6HP PRN Mild Pain 02/28/18 07/28/22 History (Scale Score 1-4) anastrozole 1 mg tablet 1 mg PO DAILY breast cancer 02/28/18 07/28/22 History atorvastatin 40 mg tablet 40 mg PO HS Cholesterol 02/28/18 07/28/22 History carvedilol 12.5 mg tablet 12.5 mg PO BID Hypertension 02/28/18 07/28/22 History loperamide 2 mg capsule 2 mg PO Q4HP PRN Diarrhea 07/11/18 07/28/22 History alendronate 70 mg tablet (Fosamax) 70 mg PO WEEKLY Osteoporosis 04/11/19 07/28/22 History amlodipine 5 mg tablet (Norvasc) 5 mg PO DAILY Hypertension 04/11/19 07/28/22 History baclofen 10 mg tablet 10 mg PO TID muscle spasms 04/11/19 07/28/22 History pantoprazole 20 mg tablet,delayed 20 mg PO DAILY GERD 04/11/19 07/28/22 History release (Protonix) clopidogrel 75 mg tablet 75 mg PO DAILY 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 02/04/20 07/28/22 History calcium carbonate 600 mg-vitamin 1 tab PO BID Supplement 10/30/20 07/28/22 History D3 10 mcg (40
[2022-07-28 15:20] LABS: Troponin I < 0.01 ng/ml (0.00-0.034)
[2022-07-28 19:51] LABS: POC Glucose,Bedside 177 (70-110)
[2022-07-28 21:39] LABS: POC Glucose,Bedside 107 (70-110)
[2022-07-29] VITALS (12 sets, daily range): BP systolic 137–170; BP diastolic 59–95; PULSE 47–132; RESP 18–29; TEMP 36.4–37.2; O2SAT 91–99; BMI 40.6
--- NOTE | 2022-07-29 04:22 | PC.NURSE ---
Pt has been in bed all shift, a/o x 4. Lungs sounds diminished in all quads. Pt wearing Adbxd12K@50%, de sats into the 70's with NC. short of air on exertion., Pt has weakness in left upper and lower ext related to old CVA. Has a garcía cathereter present secured to bed,Patent Pt's heart rate has been in the high 40's all shift, not symptomatic. 1-2 pitting edema in bilat lower ext. Pt has excoriation under folds of abdomen groin and breast. skin cleaned and Nystatin powder applied. IV in left ac patent. Pt educated on Plan of care, encouraged to call staff for needs. Bed locked in low position side rails up x 2, call light within reach.
--- NOTE | 2022-07-29 05:10 | PC.NURSE ---
Pt has been in bed all shift, a/o x 4. Lungs sounds diminished in all quads. Pt wearing Bipap, de sats into the 70's with NC. short of air on exertion., Pt has weakness in left upper and lower ext related to old CVA. Has a garcía cathereter present secured to bed,Patent Pt's heart rate has been in the high 40's all shift, not symptomatic. 1-2 pitting edema in bilat lower ext. Pt has excoriation under folds of abdomen groin and breast. skin cleaned and Nystatin powder applied. IV in left ac patent. Pt educated on Plan of care, encouraged to call staff for needs. Bed locked in low position side rails up x 2, call light within reach.
[2022-07-29 05:56] LABS: POC Glucose,Bedside 117 (70-110)
--- NOTE | 2022-07-29 06:00 | XR_ITS ---
PROCEDURE INFORMATION: Exam: XR Chest Exam date and time: 07/29/2022 5:43 AM Age: 62 years old Clinical indication: Condition or disease; Lung condition and disease; Respiratory failure; Additional info: [facility] TECHNIQUE: Imaging protocol: Radiologic exam of the chest. Views: 1 view. COMPARISON: CR XR CHEST PORTABLE 07/28/2022 8:37 AM FINDINGS: Lungs: Pulmonary vasculature is prominent. Patchy pulmonary opacities. Pleural spaces: Unremarkable. No pleural effusion. No pneumothorax. Heart/Mediastinum: The heart is enlarged. Bones/joints: Unremarkable. IMPRESSION: Persistent cardiomegaly with pulmonary vascular congestion and patchy pulmonary opacities consistent with congestive failure.
[2022-07-29 07:37] LABS: Basophils % 0.4 % (0.1-2.0); Eosinophils # 0.2 K/mm3 (0.0-0.4); Eosinophils % 3.4 % (0.1-12.0); Hematocrit 30.8 % (37.0-47.0); Hemoglobin 9.7 g/dL (12.2-16.2); Lymphocytes % 13.9 % (10-50); Mean Corpuscular HGB Conc 31.7 g/dL (31.8-35.4); Mean Corpuscular Hemoglobin 24.3 pg (27.0-31.2); Mean Corpuscular Volume 76.7 fl (81-99); Mean Platelet Volume 8.9 fl (7.4-10.4); Monocytes # 0.5 K/mm3 (0.1-1.0); Monocytes % 7.5 % (1.7-9.3); Neutrophils # 5.3 K/mm3 (1.8-7.8); Neutrophils % 74.8 % (37.0-80.0); Platelet Count 419 K/mm3 (142-424); Red Blood Count 4.01 M/mm3 (4.20-5.40); Red Cell Distribution Width 17.1 % (11.5-17.5)
[2022-07-29 07:41] LABS: Chloride 91 mmol/L (98-107); Sodium 133 mmol/L (136-145)
[2022-07-29 07:43] LABS: Blood Urea Nitrogen 11 mg/dl (7-17); Creatinine Clearance Estimated 89 mL/min (50-200); Estimated Glomerular Filt Rate 50 ml/min (>60); GFR (African American) 61 ML/MIN (>60)
[2022-07-29 07:44] LABS: Calcium 8.6 mg/dl (8.4-10.2); Carbon Dioxide 34 mmol/L (22.0-30.0); Glucose 110 mg/dl (74-100); Iron 26 ug/dL (37-170)
[2022-07-29 07:53] LABS: NT Pro Brain Natriuretic Pep. 5900 pg/mL (0-125); Total Iron Binding Capacity 223 ug/dL (265-497)
[2022-07-29 07:58] LABS: Magnesium 0.9 mg/dl (1.6-2.3)
[2022-07-29 08:58] LABS: Procalcitonin 0.071 ng/mL (0.0-2.0)
[2022-07-29 09:31] LABS: Vitamin B12 275 pg/mL (239-931)
--- NOTE | 2022-07-29 09:44 | SW/DCPLANNER ---
Addendum entered by Allyn Townsend 07/30/22 09:44: The plan for this patient is to discharge back to [facility] level of care. Lisa triplett/ Elvia is aware and stated that patient will not need a COVID swab prior to discharge. Original Note: This patient currently resides at [facility] level of care. I will continue to follow up with Lisa at [place] until patient is medically stable for discharge.
[2022-07-29 10:08] LABS: Adenovirus F 40/41, stool Not Detected (NotDetected); Astrovirus Not Detected (NotDetected); Cryptosporidium Not Detected (NotDetected); Cyclospora Cayetanesis Not Detected (NotDetected); Entamoeba histolytica Not Detected (NotDetected); Giardia lamblia Not Detected (NotDetected); Norovirus Not Detected (NotDetected); Rotavirus A Not Detected (NotDetected); Sapovirus Not Detected (NotDetected); Shigella Enterovasive E coli Not Detected (NotDetected)
[2022-07-29 10:10] LABS: Campylobacter Not Detected (NotDetected); Clostridium Difficile A/B, PCR Not Detected (NotDetected); Enteroaggregative E coli Not Detected (NotDetected); Enteropathogenic E coli Not Detected (NotDetected); Enterotoxigenic E coli Not Detected (NotDetected); Plesimonas Shigalloides, PCR Not Detected (NotDetected); Salmonella, PCR Not Detected (NotDetected); Shiga-like toxin E coli Not Detected (NotDetected); Vibrio Cholerae Not Detected (NotDetected); Vibrio, PCR Not Detected (NotDetected); Yersinia Entercolitica, PCR Not Detected (NotDetected)
--- NOTE | 2022-07-29 11:41 | PC.NURSE ---
RESP CARE NOTE: Pt placed on 4 lpm nc and BIPAP on standby. Pt will attempt to eat lunch and will continue to monitor patient.
--- NOTE | 2022-07-29 15:38 | EXP.PN ---
Subjective *Date: 07/29/22 *Time: 15:38 Interval history: Date of service July 29, 2022 I am accompanied by staff and members of the multidisciplinary rounds team. The patient reports that she is tolerating her NIPPV therapy. Nursing staff report that she remains afebrile with stable vital signs and saturating appropriately with supplemental oxygen. She is diuresing well. Her morning labs identifying improved potassium, creatinine and ongoing low magnesium which is actively being replaced. The patient is requesting something for anxiety. Exam Data for Last 24 hours Vital signs and Labs for Last 24 Hours: Temp Pulse Resp BP Pulse Ox FiO2 98.8 F 123 H 18 150/91 H 91 L 50 07/29/22 15:00 07/29/22 15:00 07/29/22 15:00 07/29/22 15:00 07/29/22 15:00 07/29/22 11:35 Laboratory Results - last 24 hr 07/28/22 18:42: POC Glucose 177 H 07/28/22 21:31: POC Glucose 107 07/29/22 05:47: POC Glucose 117 H 07/29/22 07:15: WBC 7.0, RBC 4.01 L, Hgb 9.7 L, Hct 30.8 L, MCV 76.7 L, MCH 24.3 L, MCHC 31.7 L, RDW 17.1, Plt Count 419, MPV 8.9, Neut % (Auto) 74.8, Lymph % (Auto) 13.9, Mel[place] % (Auto) 7.5, Eos % (Auto) 3.4, Baso % (Auto) 0.4, Neut # (Auto) 5.3, Lymph # (Auto) 1.0, [place] # (Auto) 0.5, Eos # (Auto) 0.2, Baso # (Auto) 0.0 07/29/22 07:15: Sodium 133 L, Potassium 4.0, Chloride 91 L, Carbon Dioxide 34 H, Anion Gap 12.0, BUN 11 D, Creatinine 1.10 H, Estimated Creat Clear 89, Estimated GFR 50 L, Est GFR ( Amer) 61 D, Glucose 110 H, Calcium 8.6, Magnesium 0.9 L, Iron 26 L, TIBC 223 L, Iron Saturation 11.20266 L, NT-Pro-B Natriuret Pep 5900 H, Vitamin B12 275, Procalcitonin 0.071 I & O for Last 24 hours: Intake & Output 07/26/22 07/27/22 07/28/22 07/29/22 23:59 23:59 23:59 23:59 Intake Total 240 / 240 420 / 420 Output Total 3100 / 3400 4400 / 4400 Balance -2860 / -3160 -3980 / -3980 Weight 111.187 kg 108 kg Constitutional Constitutional: no acute distress and cooperative *Routine HEENT Exam Head: Present normocephalic Eye: Present EOMI and PERRL ENT: Present mucous membranes moist *Routine Neck Exam Neck: Present supple; Absent JVD or lymphadenopathy *Routine Respiratory Exam Respiratory: Present rhonchi, normal respiratory effort and symmetric chest movement *Routine Cardiovascular Exam Cardiovascular: Present RRR *Routine Abdominal Exam Abdominal: Present soft and normoactive bowel sounds; Absent tenderness *Routine Extremities Exam Extremities: Absent cyanosis, clubbing or edema *Routine Skin Exam Skin: Present warm; Absent rash *Routine Neurological Exam Neurological: Present alert, oriented X3, moving all extremities, vision grossly intact, hearing grossly intact and normal speech; Absent sensory deficit or motor deficit Routine Psychiatric Exam Psychiatric: Present normal affect and cooperative Assessment and Plan *Assessment and plan (1) Acute respiratory failure with hypoxia and hypercapnia: Status: Acute Category: Medical Code(s): J96.01 - Acute respiratory failure with hypoxia; J96.02 - Acute respiratory failure with hypercapnia (2) (HFpEF) heart failure with preserved ejection fraction: Status: Acute Category: Medical Code(s): I50.30 - Unspecified diastolic (congestive) heart failure (3) CAD (coronary artery disease): Status: Chronic Qualifiers: Coronary Disease-Associated Artery/Lesion type: [place] artery [place] vs. 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
[2022-07-29 16:46] LABS: POC Glucose,Bedside 116 (70-110)
--- NOTE | 2022-07-29 19:49 | PC.NURSE ---
Pt a/o x 4. RR unlabored. VSS. Remains on 4 L NC. Parekh in place. Pt has had a couple episodes this shift where she stated she was anxious and back hurt, prn vistaril given per oct, as well as prn tylenol. BM this shift. Stool negative. CB in reach.
[2022-07-29 20:26] LABS: POC Glucose,Bedside 158 (70-110)
[2022-07-30 00:05] VITALS: RESP 18; RESP 20
[2022-07-30 03:35] VITALS: RESP 18; RESP 23
[2022-07-30 04:00] VITALS: BP 163/95; PULSE 66; RESP 24; TEMP 36.9; O2SAT 100
[2022-07-30 05:00] VITALS: BMI 40.7
[2022-07-30 05:56] LABS: POC Glucose,Bedside 136 (70-110)
[2022-07-30 06:30] VITALS: PULSE 76; PULSE 79; O2SAT 93
--- NOTE | 2022-07-30 06:47 | PC.NURSE ---
NO ACUTE CHANGES SINCE PREVIOUS ASSESSMENT. PT HAS SLEPT INTERMITTENTLY THIS SHIFT. HAS BEEN ON BIPAP THROUGH OUT THE SHIFT AND TOLERATED WELL. NO C/O PAIN THIS SHIFT BUT PT DID C/O NAUSEA X2 THIS SHIFT AND WAS TREATED PER OCT AND SHE WAS TREATED FOR ANXIETY PER OCT. MUÑOZ REMAINS IN PLACE. CALL BAHENA WITHIN REACH.
[2022-07-30 07:56] LABS: Chloride 90 mmol/L (98-107); Potassium 3.8 mmoL/L (3.5-5.1); Sodium 135 mmol/L (136-145)
[2022-07-30 07:59] LABS: Blood Urea Nitrogen 13 mg/dl (7-17); Creatinine Clearance Estimated 82 mL/min (50-200); Estimated Glomerular Filt Rate 45 ml/min (>60); GFR (African American) 55 ML/MIN (>60)
[2022-07-30 08:00] VITALS: BP 171/92; PULSE 80; RESP 26; TEMP 36.5; O2SAT 97
[2022-07-30 08:00] LABS: Anion Gap 12.8 mEq/L (5-15); Calcium 8.8 mg/dl (8.4-10.2); Carbon Dioxide 36 mmol/L (22.0-30.0); Glucose 161 mg/dl (74-100); Magnesium 1.2 mg/dl (1.6-2.3)
--- NOTE | 2022-07-30 10:03 | HMH.OTEV ---
OT Inpatient Evaluation Rehab OT IP Evaluation Start: 07/29/22 15:39 Freq: ONCE Status: Complete Protocol: Document 07/30/22 09:54 AMARILIS (Rec: 07/30/22 10:02 [facility] [id number]) Rehab OT IP Assessment Subjective History Pt oriented x 3 on arrival. Pt agreeable to engage in therapy evaluation. Pt was admitted on 07/28/22 due to shortness of air. Prior to being in the hosptial, pt lived at [facility] . Pt claims she was independent with all ADLs such as feeding, bathing, and dressing. Pt was also independent with ambulation and did not require any AE during transfers. Pt was dependent upon staff for completion of all IADLS. Pt has a past medical history of: Arthritis of knee, left CAD (coronary artery disease) Chronic respiratory failure with hypoxia CVA (cerebral vascular accident) CVA, old, alterations of sensations Diabetes mellitus Diastolic dysfunction Dyslipidemia Dyspnea on exertion Edema Encounter for pre-operative cardiovascular clearance Foot pain HHD (hypertensive heart disease) History of breast cancer History of smoking 30 or more pack years Left leg swelling Positive D-dimer Tobacco abuse Subjective I am so dizzy. Objective Patient Orientation Person,Place,Birthday Upper Extremity Gross ROM Mod Limitation 50% Bed Mobility bed mobility-scooting,bed mobility - supine/sit,bed mobility - rolling Assist Level Contact Guard/Hand Hold Transfer Training Sit/Stand/St
--- NOTE | 2022-07-30 10:23 | EXP.PN ---
Subjective *Date: 07/30/22 *Time: 10:23 Interval history: Date of service July 30, 2022 The patient is evaluated with multiple members of the multidisciplinary rounds team including pharmacy, nursing staff and case management. She reports that she is feeling better, breathing better and has identified decreased edema. Nursing staff report adequate urine output per Parekh which will be discontinued. She remains afebrile with stable vital signs and still requiring oxygen supplementation. She reports no routine oxygen at her skilled nursing facility (see [facility]). Her morning labs have been reviewed and discussed. Her morning creatinine is at baseline. She is inquiring about discharge back to her facility. She reports that she normally ambulates independently. Exam Data for Last 24 hours Vital signs and Labs for Last 24 Hours: Temp Pulse Resp BP Pulse Ox FiO2 97.7 F 80 26 H 171/92 H 97 50 07/30/22 08:00 07/30/22 08:00 07/30/22 08:00 07/30/22 08:00 07/30/22 08:00 07/30/22 03:35 Laboratory Results - last 24 hr 07/29/22 08:58: Stl Aeromonas (PCR) Not detected, Stl C. cayetanensis PCR Not detected, Stool Rotavirus (PCR) Not detected, Stl Adenov F 40/41 PCR Not detected, Stool Astrovirus (PCR) Not detected, Stool Campylobacter PCR Not detected, Stl C.difficile Tox PCR Not detected, Stool Cryptosporidium PCR Not detected, Stl E.coli Shiga Tox PCR Not detected, Stool E coli O157 PCR Not detected, Stl Enterotoxigenic E PCR Not detected, Stool EPEC (PCR) Not detected, Stool EAEC (PCR) Not detected, Stl E. histolytica PCR Not detected, Stool Giardia Lamblia PCR Not detected, Stool Salmonella PCR Not detected, Stool Sapovirus (PCR) Not detected, Stl P. shigelloides PCR Not detected, Stl Shigella/EIEC PCR Not detected, St Y.enterocolitica PCR Not detected, Stool Vibrio (PCR) Not detected, Stl Vibrio cholerae PCR Not detected, Stl Norovirus GI/GII PCR Not detected 07/29/22 16:34: POC Glucose 116 H 07/29/22 20:19: POC Glucose 158 H 07/30/22 05:48: POC Glucose 136 H 07/30/22 07:45: Sodium 135 L, Potassium 3.8, Chloride 90 L, Carbon Dioxide 36 H, Anion Gap 12.8, BUN 13, Creatinine 1.20 H, Estimated Creat Clear 82, Estimated GFR 45 L, Est GFR ( Amer) 55 L, Glucose 161 H, Calcium 8.8, Magnesium 1.2 L D I & O for Last 24 hours: Intake & Output 07/27/22 07/28/22 07/29/22 07/30/22 23:59 23:59 23:59 23:59 Intake Total 240 / 240 590 / 590 240 / 240 Output Total 3100 / 3400 6600 / 6600 550 / 550 Balance -2860 / -3160 -6010 / -6010 -310 / -310 Weight 111.187 kg 108 kg 108.3 kg Microbiology Reports for the Last 24 Hours: Microbiology 07/28/22 07:55 Blood Blood Culture - Preliminary NO GROWTH AFTER 48 HOURS 07/28/22 07:55 Blood Blood Culture - Preliminary NO GROWTH AFTER 48 HOURS Constitutional Constitutional: no acute distress and cooperative *Routine HEENT Exam Head: Present normocephalic Eye: Present EOMI and PERRL ENT: Present mucous membranes moist *Routine Neck Exam Neck: Present supple; Absent JVD or lymphadenopathy *Routine Respiratory Exam Respiratory: Present rhonchi, normal respiratory effort and symmetric chest movement *Routine Cardiovascular Exam Cardiovascular: Present RRR *Routine Abdominal Exam Abdominal: Present soft and normoactive bowel sounds; Absent tenderness *Routine Extremities Exam Extremities: Absent cyanosis, clubbing or edema *Routine Skin Exam Skin: Present warm; Absent rash *Routine Neurological Exam Neurological: Present alert, oriented X3, moving all extremities, vision grossly intact, hearing grossly intact and normal speech; Absent sensory deficit or motor deficit Routine Psychiatric Exam Psychiatric: Present normal affect and cooperative Assessment and Plan *Assessment and plan (1) Acute respiratory failure with hypoxia and hypercapnia: Status: Acute Category: Medical Code(s): J96.
--- NOTE | 2022-07-30 11:31 | EXP.DC.SUM ---
General Admission date:: 07/28/22 Discharge date: 07/30/22 HPI HPI HPI: This is a 62-year-old female who presents to [facility] emergency department from her [facility] halfway for shortness of air. Her past medical history is significant for chronic hypoxic respiratory failure on home O2 at 3 L via nasal cannula, hepatomegaly, right breast cancer 2013, coronary artery disease, CVA with left-sided deficit and diabetes. She has identified increasing shortness of air over the last 48 hours not improving with her home medication regiment. She describes shortness of air made worse with exertion. She reports an occasional cough but no sputum production. She reports orthopnea. She denies associated retrosternal chest pain, palpitations or increasing pedal edema. In the ED her troponins are negative and her BNP is elevated at greater than 4000. Her chest x-ray is consistent with cardiomegaly and pulmonary edema. Hospital Course Hospital Course Hospital Course: The patient was admitted to the medical unit with telemetry monitoring. She was started on loop diuretic therapy with intake and output evaluations, daily weights and fluid restriction. An echocardiogram was performed that identified reduced ejection fraction 40-45% with anteroseptal and inferior septal wall hypokinesis. Her right ventricular systolic pressure was not able to be calculated. Her DPP-4 inhibitor therapy was transitioned to SGLT2 inhibitor. A low-dose ARB was added to her therapy. She was maintained on her cardioselective beta-kavya therapy. Nursing staff reported appropriate diuresis and the patient identified improvement in her symptomatology. She was maintained on her usual oxygen requirement with appropriate oxygen saturations. Her laboratory studies, electrolytes and creatinine were trended. Her creatinine returned to her baseline of 1.1. Her electrolyte disturbances resolved with supplementation. She was maintained on her iron therapy with addition of vitamin C to improve absorption. Her B12 level returned low so she was started on B12 supplementation. She reported chronic anticoagulation with factor Xa inhibitor for previous stroke and lower extremity DVT. She is chronically on antiplatelet therapy with P2Y12 inhibitor therapy. The patient identified improvement in her symptomatology and inquired about transition back to her halfway facility. Case management assisted with transition of care back to her halfway facility. I spent 35 minutes in [id number] time with the patient, nursing staff (Eugenia KRAUSE) and case management concerning the discharge process. We discussed the admitting diagnoses and hospital course. We discussed identified improvement in the patient's desire to return back to her halfway facility. We reviewed inpatient studies and imaging. The patient voiced understanding on the importance of follow-up with her primary care provider and referral to [facility] cash[facility] for evaluation. The patient plans to be compliant with the medication regimen prescribed and follow-up appointments. She understands that she can return to the emergency department with any sudden changes or concerns. Exam Data for Last 24 hours Vital signs and Labs for Last 24 Hours: Temp Pulse Resp BP Pulse Ox FiO2 97.7 F 80 26 H 171/92 H 97 50 07/30/22 08:00 07/30/22 08:00 07/30/22 08:00 07/30/22 08:00 07/30/22 08:00 07/30/22 03:35 Laboratory Results - last 24 hr 07/29/22 08:58: Stl Aeromonas (PCR) Not detected, Stl C. cayetanensis PCR Not detected, Stool Rotavirus (PCR) Not detected, Stl Adenov F 40/41 PCR Not detected, Stool Astrovirus (PCR) Not detected, Stool Campylobacter PCR Not detected, Stl C.difficile Tox PCR Not detected, Stool Cryptosporidium PCR Not detected, Stl E.coli Shiga Tox PCR Not detected, Stool E coli O157 PCR Not detected, Stl Enterotoxigenic E PCR Not detected, Stool EPEC (PCR) Not detected, Stool EAEC (P
[2022-07-30 12:00] VITALS: BP 149/96; PULSE 55; RESP 22; TEMP 36.9; O2SAT 93
--- NOTE | 2022-07-30 12:04 | HMH.PTEV ---
Physical Therapy Evaluation Rehab PT IP Evaluation Start: 07/29/22 15:39 Freq: ONCE Status: Active Protocol: Document 07/30/22 09:00 PHODIONNE (Rec: 07/30/22 12:04 PHORNE [id number]) Subjective/History History History 62 yowf adm to [facility] from [facility] with CHF exac. She reports she was independent with all mobility despite prior CVA. She does not use AD at baseline and is independent with ADLs. Subjective Subjective This am she reports feeling somewhat anxious, but agrees to treatment. Rehab PT IP Eval Objective Appearance Patient Behavior Appropriate Patient Orientation Person,Place,Time Difficulty following instructions none Speech Pattern Clear Ambulation Patient Able to Ambulate Yes Ambulation Observation IP General Gait Pattern Observation Shuffling Step Ambulation Distance (feet) 5 Ambulation Assistive Device None Ambulation Ability Contact Guard/Hand Hold Balance Ability to Arise Able, uses arms to help Sitting Balance Steady, safe Standing Balance Steady, wide stance Dynamic Sitting Balance Ability Good Dynamic Standing Balance Ability Fair Transfers Bed Transfer Ability Contact Guard/Hand Hold Chair Transfer Ability Contact Guard/Hand Hold Sit to Stand Bed Transfer Ability Contact Guard/Hand Hold Sit to Stand Chair Transfer Ability Contact Guard/Hand Hold ROM LUE PT ROM Status ABN Abnormal ROM Comment increased spacticity due to prior CVA Rehab PT IP prob,goals,plan Problems Date of Evaluation: 07/30/22 PT IP Problems Bed Mobility,Transfers,Gait Rehab Potential Rehab Potential Good Plan PT Intervention Plan Bed Mobility,Transfers,Gait, Therapeutic Exercise PT Plan Frequency BID Duration LOS Discharge Goals Bed Transfer Ability Supervision/Stand by Sit to Stand Chair Transfer Ability Supervision/Stand by Ambulation Assistive Device None Ambulation Distance (feet) 20 Discharge Plan PT Discharge Plan Pt is appropriate to return to [facility] home once medically stable. G -code Required No Eval Complexity Eval Charge Codes 02074 - Moderate Complexity PHYSICIAN CERTIFICATION: I certify the specified therapy services for Jyoti
--- NOTE | 2022-07-30 14:27 | PC.NURSE ---
RESP CARE NOTE: Pt SPO2 is at 87% on room air. Oxygen replaced at 2 lpm nc . Pt states she has not walked in weeks, she states she is not capable of walking due to weakness at this time.
--- NOTE | 2022-08-02 14:08 | CARE MANAGER ---
Spoke with [facility] for post-discharge phone interview, no answer.
== END 2022-07-30 15:55 | disposition short-term general hospital (02) | DRG 189 ==
LOC: ER 08:24 → 2ND 10:16
PROVIDERS: Admitting Provider Family Medicine; Emergency Provider Student in an Organized Health Care Education/Training Program; PCP Emergency Medicine; Visit Provider Family Medicine
DX: J96.02 Acute respiratory failure with hypercapnia (principal); I50.33 Acute on chronic diastolic (congestive) heart failure; I11.0 Hypertensive heart disease with heart failure; J96.01 Acute respiratory failure with hypoxia; I25.10 Atherosclerotic heart disease of native coronary artery without angina pectoris; E11.59 Type 2 diabetes mellitus with other circulatory complications; G47.33 Obstructive sleep apnea (adult) (pediatric); J44.9 Chronic obstructive pulmonary disease, unspecified; E78.5 Hyperlipidemia, unspecified; Z85.3 Personal history of malignant neoplasm of breast; Z79.4 Long term (current) use of insulin; M17.12 Unilateral primary osteoarthritis, left knee; Z99.81 Dependence on supplemental oxygen; I69.398 Other sequelae of cerebral infarction; E11.40 Type 2 diabetes mellitus with diabetic neuropathy, unspecified
CPT/HCPCS: 36415; 71045; 80048; 82607; 82803; 82962; 83540; 83550; 83605; 83735; 83880; 84145; 84484; 85025; 87040; 87507; 93005; 93306; 94640; 94660; 94761; 97162; 97166; 99285; C9803; J2405; J3475; U0003; U0005

== ENCOUNTER → 2022-08-05 13:09 | Outpatient (CLI) | payer MEDICARE, MEDICAID, SELFPAY ==
--- NOTE | 2022-08-05 13:59 | PC.NURSE ---
PFT completed without incident. Albuterol 0.083% given via HHN, per protocol, Pt tolerated tx well.
--- NOTE | 2022-08-05 14:13 | CT_ITS ---
FINAL REPORT TECHNIQUE: Postcontrast axial images of the chest were performed in a CTA protocol. This study was performed with techniques to keep radiation doses as low as reasonably achievable, (ALARA). Individualized dose reduction technique using automated exposure control or adjustment of mA and/or kV according to the patient's size were employed. CLINICAL HISTORY: PE, swelling in legs COMPARISON: 11/07/2020 FINDINGS: There are stable, bilateral thyroid nodule seen. The heart is normal in size. There are multiple mildly enlarged mediastinal lymph nodes which are worse from prior exam. These may be reactive or neoplastic. There is no axillary adenopathy. No pleural or pericardial effusion is identified. The thoracic aorta is normal in caliber with no focal aneurysm or dissection identified. There is no filling defect to suggest pulmonary embolism. There are mild pulmonary ground-glass opacities which may represent edema or pneumonia. There is a calcified granuloma in the right lower lobe. The images of the upper abdomen demonstrate postoperative changes of cholecystectomy. IMPRESSION: No evidence for PE on this exam. Multiple mildly enlarged mediastinal lymph nodes, worse from prior exam. Findings may be reactive or neoplastic. Recommend follow-up. Mild pulmonary ground-glass opacities which may represent edema or pneumonia. Reviewed, Interpreted and Dictated by Arie Orozco III, MD Transcribed by Betty Odonnell Authenticated and . [facility]
== END ==
PROVIDERS: PCP Emergency Medicine; Visit Provider Internal Medicine Pulmonary Disease
DX: R79.89 Other specified abnormal findings of blood chemistry (principal); R06.09 Other forms of dyspnea
CPT/HCPCS: 71275; 94060; 94726; 94729; Q9967

== ENCOUNTER 2022-08-27 09:06 | Day surgery (SDC) | payer MEDICARE, MEDICAID, SELFPAY ==
[2022-08-27] VITALS (13 sets, daily range): BP systolic 133–177; BP diastolic 72–100; PULSE 70–84; RESP 13–20; O2SAT 92–100; BMI 41.1
--- NOTE | 2022-08-27 07:09 | IR_ITS ---
APPROVED REPORT Patient Location: Outpatient PROCEDURES Right heart catheterization Left heart catheterization Left ventriculogram Selective coronary angiogram INDICATION Known coronary artery disease, Worsening biventricular congestive heart failure Informed consent was obtained prior to the procedure. COMPLICATIONS NONE Estimated Blood Loss: LESS THAN 10 ML TECHNIQUE One percent lidocaine was used to anesthetize the right anterior aspect of the right wrist. The right radial artery was accessed via the Seldinger technique and a 6 Nepali hydrophilic sheath was placed in the right radial artery. Following this one percent lidocaine was used to anesthetize the right anterior aspect of the right neck. The right internal jugular vein was accessed via the Seldinger technique and a 7 Nepali sheath was placed in the right internal jugular vein. Following this an arterial cocktail was administered using 5000U heparin, 2.5 mg verapamil, 1mg Lidocaine and 800mcg nitroglycerin into the right radial sheath. A papa catheter was used to perform left heart catheterization left ventriculogram and selective coronary angiography while a [place]Bennie catheter was used to perform right heart catheterization. Saturations were obtained in the pulmonary artery and right atrium. At the end of the procedure the arterial sheath was removed good hemostasis was achieved using Traclet band. Patient was transferred to the postop holding area in stable condition for venous sheath removal. ANGIOGRAPHIC RESULTS The left main artery Normal The left anterior descending artery Widely patent in the proximal segment with bifurcating stents and a large first diagonal artery and mid LAD. Both stents are widely patent. Distal to the mid LAD stent the remaining LAD is widely patent. Distal to the diagonal artery stent the diagonal arteries also widely patent The circumflex artery Is a dominant vessel and has mild 10% stenoses with a mid vessel 30% stenosis The right coronary artery Is a nondominant vessel and has proximal 40 to 50% stenoses with mid vessel 40 to 50% stenoses The CORNELL ventriculogram reveals Not performed The left ventricular end-diastolic pressure Not measured Right atrial pressure 15 mmHg Pulmonary artery pressure 60/50 mmHg Pulmonary artery occlusion pressure 50 mmHg Hemoglobin 9.4 Aortic saturation 95% Pulmonary artery saturation 70% Right atrial saturation 72% Cardiac output 8.5 L/min IMPRESSION Patent coronary arteries Severe pulmonary hypertension consistent with left-sided diastolic dysfunction Biventricular congestive heart failure secondary to left heart failure PLAN 1. Increased diuresis while avoiding salt and fluids 2. Medical management for coronary artery disease Electronically signed by : Jhon Garcia MD 09/01/2022 13:43:35
[2022-08-27 10:00] LABS: Basophils % 0.5 % (0.1-2.0); Eosinophils # 0.4 K/mm3 (0.0-0.4); Eosinophils % 5.4 % (0.1-12.0); Hematocrit 30.6 % (37.0-47.0); Hemoglobin 9.4 g/dL (12.2-16.2); Lymphocytes % 14.1 % (10-50); Mean Corpuscular HGB Conc 30.8 g/dL (31.8-35.4); Mean Corpuscular Hemoglobin 24.3 pg (27.0-31.2); Mean Platelet Volume 9.1 fl (7.4-10.4); Monocytes # 0.6 K/mm3 (0.1-1.0); Monocytes % 7.8 % (1.7-9.3); Neutrophils # 5.2 K/mm3 (1.8-7.8); Neutrophils % 72.1 % (37.0-80.0); Platelet Count 384 K/mm3 (142-424); Red Blood Count 3.88 M/mm3 (4.20-5.40); Red Cell Distribution Width 18.2 % (11.5-17.5); White Blood Count 7.3 K/mm3 (4.8-10.8)
[2022-08-27 10:08] LABS: Chloride 96 mmol/L (98-107); Potassium 4.6 mmoL/L (3.5-5.1); Sodium 137 mmol/L (136-145)
[2022-08-27 10:10] LABS: Blood Urea Nitrogen 16 mg/dl (7-17); Creatinine Clearance Estimated 66 mL/min (50-200); Estimated Glomerular Filt Rate 35 ml/min (>60); GFR (African American) 42 ML/MIN (>60)
[2022-08-27 10:11] LABS: Anion Gap 14.6 mEq/L (5-15); Calcium 8.4 mg/dl (8.4-10.2); Carbon Dioxide 31 mmol/L (22.0-30.0); Glucose 131 mg/dl (74-100)
--- NOTE | 2022-08-27 12:35 | SUR.PHASEII ---
Report given to [facility] to [facility]
[2022-08-27 12:37] LABS: CATHL Arterial O2 SAT 70.7 % (90-100); CATHL Venous O2 SAT 72.8 % (75-80)
== END 2022-08-27 14:45 | disposition home or self-care (01) ==
PROVIDERS: PCP Emergency Medicine; Visit Provider Internal Medicine
DX: R94.39 Abnormal result of other cardiovascular function study (principal); I27.20 Pulmonary hypertension, unspecified; Z79.899 Other long term (current) drug therapy; J96.11 Chronic respiratory failure with hypoxia; E11.9 Type 2 diabetes mellitus without complications; Z79.4 Long term (current) use of insulin; Z79.01 Long term (current) use of anticoagulants; I50.814 Right heart failure due to left heart failure; Z85.3 Personal history of malignant neoplasm of breast; Z90.11 Acquired absence of right breast and nipple
CPT/HCPCS: 80048; 82810; 85025; 93460; 99152; 99153; C1725; C1766; C1769; C1894; J1644; Q9967

== ENCOUNTER → 2022-09-20 16:04 | Outpatient (CLI) | payer MEDICARE, MEDICAID, SELFPAY ==
[2022-09-20 17:44] LABS: Adenovirus F 40/41, stool Not Detected (NotDetected); Astrovirus Not Detected (NotDetected); Campylobacter Not Detected (NotDetected); Clostridium Difficile A/B, PCR Not Detected (NotDetected); Cryptosporidium Not Detected (NotDetected); Cyclospora Cayetanesis Not Detected (NotDetected); Entamoeba histolytica Not Detected (NotDetected); Enteroaggregative E coli Not Detected (NotDetected); Enteropathogenic E coli Not Detected (NotDetected); Enterotoxigenic E coli Not Detected (NotDetected); Giardia lamblia Not Detected (NotDetected); Plesimonas Shigalloides, PCR Not Detected (NotDetected); Rotavirus A Not Detected (NotDetected); Salmonella, PCR Not Detected (NotDetected); Sapovirus Not Detected (NotDetected); Shiga-like toxin E coli Not Detected (NotDetected); Shigella Enterovasive E coli Not Detected (NotDetected); Vibrio Cholerae Not Detected (NotDetected); Vibrio, PCR Not Detected (NotDetected); Yersinia Entercolitica, PCR Not Detected (NotDetected)
[2022-09-21 01:08] LABS: Norovirus Detected (NotDetected)
== END ==
PROVIDERS: PCP Emergency Medicine; Visit Provider Emergency Medicine
DX: R19.7 Diarrhea, unspecified (principal); A08.11 Acute gastroenteropathy due to Norwalk agent
CPT/HCPCS: 87506

== ENCOUNTER 2022-11-24 11:01 | Outpatient (CLI) | payer MEDICARE, MEDICAID, SELFPAY ==
[2022-11-24 11:12] VITALS: BP 110/59; PULSE 61; RESP 20; TEMP 36.7; O2SAT 98
== END 2022-11-24 11:30 | disposition home or self-care (01) ==
LOC: INF 11:02
PROVIDERS: PCP Emergency Medicine; Visit Provider Internal Medicine Medical Oncology
DX: M81.0 Age-related osteoporosis without current pathological fracture (principal); C50.912 Malignant neoplasm of unspecified site of left female breast
CPT/HCPCS: 96372; J0897

== ENCOUNTER → 2022-12-06 02:45 | Outpatient (CLI) | payer MEDICARE, MEDICAID, SELFPAY ==
[2022-12-06 03:11] LABS: Basophils # 0.1 K/mm3 (0-0.2); Basophils % 0.5 % (0.1-2.0); Eosinophils # 0.6 K/mm3 (0.0-0.4); Eosinophils % 6.1 % (0.1-12.0); Hematocrit 34.9 % (37.0-47.0); Hemoglobin 10.7 g/dL (12.2-16.2); Lymphocytes # 2.1 K/mm3 (0.7-4.5); Lymphocytes % 22.1 % (10-50); Mean Corpuscular HGB Conc 30.8 g/dL (31.8-35.4); Mean Corpuscular Hemoglobin 25.1 pg (27.0-31.2); Mean Corpuscular Volume 81.6 fl (81-99); Mean Platelet Volume 8.5 fl (7.4-10.4); Monocytes # 0.7 K/mm3 (0.1-1.0); Monocytes % 7.8 % (1.7-9.3); Neutrophils % 63.4 % (37.0-80.0); Platelet Count 373 K/mm3 (142-424); Red Blood Count 4.27 M/mm3 (4.20-5.40); Red Cell Distribution Width 18.1 % (11.5-17.5); White Blood Count 9.4 K/mm3 (4.8-10.8)
[2022-12-06 03:22] LABS: Alanine Aminotransferase 27 U/L (12-78); Albumin/Globulin Ratio 1.3 (1.1-1.8); Alkaline Phosphatase 138 U/L (38-126); Anion Gap 12.8 mEq/L (5-15); Aspartate Amino Transferase 29 U/L (14-36); Bilirubin,Total 0.4 mg/dl (0.2-1.3); Blood Urea Nitrogen 42 mg/dl (7-17); Calcium 8.4 mg/dl (8.4-10.2); Carbon Dioxide 26 mmol/L (22.0-30.0); Chloride 97 mmol/L (98-107); Estimated Glomerular Filt Rate 23 ml/min (>60); GFR (African American) 27 ML/MIN (>60); Glucose 252 mg/dl (74-100); Potassium 4.8 mmoL/L (3.5-5.1); Sodium 131 mmol/L (136-145); Uric Acid 8.6 mg/dl (2.5-6.2)
[2022-12-06 03:28] LABS: C-Reactive Protein 24.1 mg/L (0-4)
[2022-12-06 04:00] LABS: Hemoglobin A1C 8.3 % (4.0-6.0)
[2022-12-06 04:03] LABS: Erythrocyte Sedimentation Rate 61 mm/hr (0-30)
== END ==
PROVIDERS: PCP Emergency Medicine; Visit Provider Emergency Medicine
DX: M13.162 Monoarthritis, not elsewhere classified, left knee (principal); I25.10 Atherosclerotic heart disease of native coronary artery without angina pectoris; E11.59 Type 2 diabetes mellitus with other circulatory complications; Z79.4 Long term (current) use of insulin
CPT/HCPCS: 80053; 83036; 84550; 85025; 85651; 86140

== ENCOUNTER → 2022-12-09 12:46 | Outpatient (CLI) | payer MEDICARE, MEDICAID, SELFPAY ==
--- NOTE | 2022-12-09 12:46 | CT_ITS ---
FINAL REPORT TECHNIQUE: Thin section axial CT images of the left knee were performed with coronal and sagittal reformats. This study was performed with techniques to keep radiation doses as low as reasonably achievable (ALARA). Individualized dose reduction techniques using automated exposure control or adjustment of mA and/or kV according to the patient''s size were employed. CLINICAL HISTORY: Left knee monoarthritis. swelling prox tibia/anterior FINDINGS: CT LEFT KNEE WITHOUT CONTRAST Postoperative changes from knee arthroplasty causes streak artifact which obscures the detail. There is no acute bony abnormality. There is an air and fluid collection anterior to the proximal tibia measuring approximately 7 x 5 x 3 cm. This may represent an abscess or a hematoma. There is anterior lower leg skin thickening. IMPRESSION: Air and fluid collection anterior to the proximal tibia which may represent an abscess or hematoma. Reviewed, Interpreted and Dictated by Arie Orozco III, MD Transcribed by Geena Randall Authenticated and [facility]
--- NOTE | 2022-12-09 12:46 | CT_ITS ---
FINAL REPORT CLINICAL HISTORY: History of CVA, left-sided weakness FINDINGS: Axial images of the head were obtained without contrast. Coronal reformatted images were also obtained. This study was performed with techniques to keep radiation doses as low as reasonably achievable (ALARA). Individualized dose reduction techniques using automated exposure control or adjustment of mA and/or kV according to the patient''s size were employed. There is generalized age-appropriate atrophy. Periventricular low-attenuation areas are seen consistent with mild chronic ischemic changes. There is no evidence of intracranial hemorrhage or mass. There are areas of encephalomalacia in the right cerebral hemisphere consistent with prior infarct. There is no evidence of acute infarct. There is no evidence of shift of the midline structures. No skull abnormality is seen on the bone window images. IMPRESSION: Atrophy and mild periventricular chronic ischemic changes. No acute intracranial abnormality identified. Areas of encephalomalacia in the right cerebral hemisphere consistent with prior infarct. Reviewed, Interpreted and Dictated by Arie Orozco III, MD Transcribed by Geena Randall Authenticated and [facility]
--- NOTE | 2022-12-09 13:13 | CA_ITS ---
FINAL REPORT TECHNIQUE: Color Doppler, duplex Doppler and stoner scale sonography of the bilateral neck arterial vasculature was performed. Velocities were measured in the carotid arteries. Stenosis evaluation based on the validated velocity criteria. CLINICAL HISTORY: HX CVA,DIZZINESS,PT STATES STENTING IN RT CARTOID 8-10 YRS AGO,EX SMOKER FINDINGS: The peak systolic velocity of the right common carotid artery is 98 cm/s. The peak systolic velocity of the right internal carotid artery is 139 cm/s and end diastolic velocity 42 cm/s. The ICA/CCA ratio is 1.4. A mild amount of plaque is present. The right external carotid artery is patent. The right vertebral artery is patent with antegrade flow. The peak systolic velocity of the left common carotid artery is 98 cm/s. The peak systolic velocity of the left internal carotid artery is 80 cm/s and end diastolic velocity 18 cm/s. The ICA/CCA ratio is 0.8. A mild amount of plaque is present. The left external carotid artery is patent.The left vertebral artery is patent with antegrade flow. IMPRESSION: Less than 50% bilateral carotid stenosis. Bilateral patent vertebral arteries with antegrade flow. If indicated, CTA or MRA could further evaluate. Reviewed, Interpreted and Dictated by Arie Orozco III, MD Transcribed by Geena Randall Authenticated and . [facility]
== END ==
PROVIDERS: PCP Emergency Medicine; Visit Provider Specialist
DX: I63.231 Cerebral infarction due to unspecified occlusion or stenosis of right carotid arteries; M13.162 Monoarthritis, not elsewhere classified, left knee
CPT/HCPCS: 70450; 73700; 93880

== ENCOUNTER → 2022-12-21 15:28 | Outpatient (CLI) | payer MEDICARE, MEDICAID, SELFPAY | PROVIDERS: PCP Emergency Medicine; Visit Provider Specialist | DX: G47.33 Obstructive sleep apnea (adult) (pediatric) (principal); G47.36 Sleep related hypoventilation in conditions classified elsewhere | CPT/HCPCS: G0399 ==

== ENCOUNTER → 2022-12-22 10:06 | Outpatient (CLI) | payer MEDICARE, MEDICAID, SELFPAY ==
--- NOTE | 2022-12-22 10:12 | XR_ITS ---
FINAL REPORT CLINICAL HISTORY: left knee pain COMPARISON: 06/10/2016 FINDINGS: LEFT KNEE 3 views of the left knee were obtained. There is long segment total knee prosthesis. Healed fracture deformity along the anterior aspect of the distal femur is noted. Deformity appears stable. There is no acute bony abnormality. However, there is new lucency identified along the methylmethacrylate of unclear significance. IMPRESSION: Long segment left knee prosthesis. Lucency along the distal femur methylmethacrylate. Please correlate with any signs of loosening. Reviewed, Interpreted and Dictated by Huber Evans MD Transcribed by Maegan Regalado Authenticated and [facility]
== END ==
PROVIDERS: PCP Emergency Medicine; Visit Provider Orthopaedic Surgery
DX: M13.162 Monoarthritis, not elsewhere classified, left knee (principal)
CPT/HCPCS: 73562

== ENCOUNTER 2023-01-04 11:17 | Emergency (ER) | payer MEDICARE, MEDICAID, SELFPAY ==
[2023-01-04] VITALS (13 sets, daily range): BP systolic 101–146; BP diastolic 48–78; PULSE 79–102; RESP 17–20; TEMP 36.7; O2SAT 93–97; BMI 37.8
--- NOTE | 2023-01-04 11:46 | XR_ITS ---
FINAL REPORT CLINICAL HISTORY: Swelling/abscess around left knee, arthroplasty COMPARISON: 12/22/2022 FINDINGS: Left knee Three views were obtained. There is no acute fracture or dislocation. There are postoperative changes from knee arthroplasty. Vascular calcification is identified. There is diffuse soft tissue swelling. IMPRESSION: No significant change from previous. Reviewed, Interpreted and Dictated by Arie Orozco III, MD Transcribed by Anel Cooley Authenticated and [facility]
--- NOTE | 2023-01-04 11:47 | HMH.EDGENADL ---
Discharge Plan Disposition Chief Complaint: PAIN Prescriptions Prescriptions: No Action acetaminophen 500 mg tablet 500 mg PO Q6HP PRN (Reason: Mild Pain (Scale Score 1-4)) anastrozole 1 mg tablet 1 mg PO DAILY atorvastatin 40 mg tablet 40 mg PO HS carvedilol 12.5 mg tablet 12.5 mg PO BID Xarelto 15 mg tablet 15 mg PO QPMWITHMEAL Acid Gone Antacid 95-358 mg/15 mL suspension 30 ml PO QPCHS PRN guaifenesin [Diabetic Tussin EX] 100 mg/5 mL liquid 200 mg PO Q4H PRN loperamide 2 mg capsule 2 mg PO Q4HP PRN (Reason: Diarrhea) pantoprazole [Protonix] 20 mg tablet,delayed release (DR/EC) 20 mg PO DAILY baclofen 10 mg tablet 10 mg PO TID alendronate [Fosamax] 70 mg tablet 70 mg PO WEEKLY calcium carbonate-vitamin D3 600 mg(1,500mg) -400 unit tablet 1 tab PO BID albuterol sulfate [Ventolin HFA] 90 mcg/actuation HFA aerosol inhaler 2 inh inhalation Q6H PRN (Reason: shortness of breath or wheezing) 90 Days Qty: 18 3RF doxycycline monohydrate 100 mg tablet 150 mg PO BID spironolactone 50 mg tablet 50 mg PO DAILY oxycodone-acetaminophen 5-325 mg tablet 1 tab PO BID Qty: 60 0RF pregabalin 50 mg capsule 50 mg PO TID Qty: 90 5RF clopidogrel 75 MG tablet 75 mg PO DAILY sennosides 8.6 MG tablet 17.2 mg PO HSP PRN (Reason: Constipation) multivitamin with minerals 1 EACH tablet 1 each PO DAILY fluticasone propionate 15.8 ML spray,suspension 1 spray intranasal BID glipizide 2.5 mg tablet extended release 24hr 2.5 mg PO DAILY ferrous sulfate [iron] 325 mg (65 mg iron) Tablet 325 mg PO DAILY insulin glargine [Basaglar KwikPen U-100 Insulin] 100 unit/mL (3 mL) Insulin Pen 8 unit SQ HS ipratropium-albuterol 0.5 mg-3 mg(2.5 mg base)/3 mL Solution For Nebulization 3 ml INHALATION Q6HP PRN (Reason: Shortness Of Breath) ondansetron 4 mg Tablet,Disintegrating 4 mg PO Q6HP PRN (Reason: Nausea And Vomiting) venlafaxine 150 mg capsule,extended release 24hr 150 mg PO DAILY trazodone 150 mg tablet 300 mg PO HS metformin 1,000 mg tablet 1,000 mg PO BID Hold Instructions: Resume on 08/30/22. magnesium oxide 400 mg (241.3 mg magnesium) tablet 400 mg PO BID ascorbic acid (vitamin C) [Vitamin C] 500 mg tablet 250 mg PO BID fluticasone furoate-vilanterol [Breo Ellipta] 100-25 mcg/dose blister with device 1 inh inhalation DAILY Jardiance 10 mg tablet 10 mg PO DAILY cyanocobalamin (vitamin B-12) 1,000 mcg capsule 1,000 mcg PO DAILY bumetanide 2 mg tablet 2 mg PO BID valsartan [Diovan] 80 mg tablet 80 mg PO BID Referrals Follow up/Referrals: Daniel Barba MD [Primary Care Provider] - See instructions Discharge ED Provider: Stephanie Purcell General Adult HPI General Chief complaint: PAIN Stated complaint: Abscess Time Seen by Provider: 01/04/23 11:48 Mode of Arrival: Ambulatory Source of Information: Patient Limitations: No Limitations Description of Symptoms (Recalled from ER Triage Doc. by RN): pt to ed c/o left knee drainage. pt states she first noticed the abscess x1 month ago. pt reports the abscess has been draning x1 week. pt reports swelling and pain. History of Present Illness HPI narrative: Patient is a 62 year old female, hx DM, s/p left arthroplasty, presented to ER with c/o: Swelling, tenderness around left knee for one month. States for the last week the abscess became draining through the skin. Denies using any medications. States she was not seen by any provider. Denies fever, chills, fall, injury or insect bite. MD complaint: Swelling, tenderness, drainage around left knee area. Related Data Home Medications Medication Instructions Recorded Confirmed acetaminophen 500 mg tablet 500 mg PO Q6HP PRN Mild Pain 02/28/18 12/22/22 (Scale Score 1-4) anastrozole 1 mg tablet 1 mg PO KRYSTAL
[2023-01-04 11:55] LABS: Basophils % 0.3 % (0.1-2.0); Eosinophils # 0.3 K/mm3 (0.0-0.4); Eosinophils % 3.6 % (0.1-12.0); Hematocrit 33.3 % (37.0-47.0); Hemoglobin 10.7 g/dL (12.2-16.2); Lymphocytes # 1.1 K/mm3 (0.7-4.5); Lymphocytes % 11.4 % (10-50); Mean Corpuscular HGB Conc 32.2 g/dL (31.8-35.4); Mean Corpuscular Hemoglobin 25.5 pg (27.0-31.2); Mean Corpuscular Volume 79.1 fl (81-99); Mean Platelet Volume 8.7 fl (7.4-10.4); Monocytes # 0.6 K/mm3 (0.1-1.0); Monocytes % 6.4 % (1.7-9.3); Neutrophils # 7.2 K/mm3 (1.8-7.8); Neutrophils % 78.3 % (37.0-80.0); Platelet Count 414 K/mm3 (142-424); Red Blood Count 4.22 M/mm3 (4.20-5.40); Red Cell Distribution Width 16.8 % (11.5-17.5); White Blood Count 9.2 K/mm3 (4.8-10.8)
--- NOTE | 2023-01-04 11:55 | PC.NURSE ---
2nd set of Blood culture sent to lab
[2023-01-04 11:56] LABS: Chloride 82 mmol/L (98-107); Potassium 4.9 mmoL/L (3.5-5.1); Sodium 124 mmol/L (136-145)
[2023-01-04 11:58] LABS: Alanine Aminotransferase 32 U/L (12-78); Aspartate Amino Transferase 40 U/L (14-36); Blood Urea Nitrogen 27 mg/dl (7-17); Creatinine Clearance Estimated 50 mL/min (50-200); Estimated Glomerular Filt Rate 28 ml/min (>60); GFR (African American) 34 ML/MIN (>60)
[2023-01-04 11:59] LABS: Albumin/Globulin Ratio 1.2 (1.1-1.8); Alkaline Phosphatase 92 U/L (38-126); Anion Gap 21.9 mEq/L (5-15); Bilirubin,Total 0.2 mg/dl (0.2-1.3); Carbon Dioxide 25 mmol/L (22.0-30.0); Globulin 3.4 g/dL (1.3-3.2); Glucose 213 mg/dl (74-100); Total Protein,Serum 7.4 g/dl (6.3-8.2)
--- NOTE | 2023-01-04 12:10 | EXP.PHA.CONS ---
Pharmacy Consult Date: 01/04/23 Time: 12:12 Referring provider: DR SCOTT Reason for Consult:: VANCOMYCIN DOSING CONSULT Allergies Allergy/AdvReac Type Severity Reaction Status Date / Time bupropion [From WELLBUTRIN] Allergy Unknown Verified 12/22/22 11:03 hydrocodone [From LORTAB] Allergy Unknown Verified 12/22/22 11:03 Sulfa (Sulfonamide Allergy Unknown Verified 12/22/22 11:03 Antibiotics) [SULFA (SULFONAMIDE ANTIBIOTICS)] tramadol [From ULTRAM] Allergy Unknown Verified 12/22/22 11:03 SURGICAL TAPE Allergy Unknown Uncoded 12/22/22 11:03 Home Medications Medication Instructions Recorded Confirmed Type acetaminophen 500 mg tablet 500 mg PO Q6HP PRN Mild Pain 02/28/18 12/22/22 History (Scale Score 1-4) anastrozole 1 mg tablet 1 mg PO DAILY breast cancer 02/28/18 12/22/22 History atorvastatin 40 mg tablet 40 mg PO HS Cholesterol 02/28/18 12/22/22 History carvedilol 12.5 mg tablet 12.5 mg PO BID Hypertension 02/28/18 12/22/22 History loperamide 2 mg capsule 2 mg PO Q4HP PRN Diarrhea 07/11/18 12/22/22 History alendronate 70 mg tablet (Fosamax) 70 mg PO WEEKLY Osteoporosis 04/11/19 12/22/22 History baclofen 10 mg tablet 10 mg PO TID muscle spasms 04/11/19 12/22/22 History pantoprazole 20 mg tablet,delayed 20 mg PO DAILY GERD 04/11/19 12/22/22 History release (Protonix) clopidogrel 75 mg tablet 75 mg PO DAILY 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 02/04/20 12/22/22 History calcium carbonate 600 mg-vitamin 1 tab PO BID Supplement 10/30/20 12/22/22 History D3 10 mcg (400 unit) tablet rivaroxaban 15 mg tablet (Xarelto) 15 mg PO QPMWITHMEAL Blood thinner 03/13/21 12/22/22 History HX DVT fluticasone propionate 50 1 spray intranasal BID allergies 05/06/21 12/22/22 History mcg/actuation nasal spray,suspension multivitamin with minerals 1 each PO DAILY Supplement 05/06/21 12/22/22 History sennosides 8.6 mg tablet 17.2 mg PO HSP PRN Constipation 05/06/21 12/22/22 History ferrous sulfate 325 mg (65 mg 325 mg PO DAILY Supplement 07/28/22 12/22/22 History iron) tablet (iron) glipizide 2.5 mg tablet, extended 2.5 mg PO DAILY Diabetes 07/28/22 12/22/22 History release 24 hr insulin glargine 100 unit/mL (3 8 unit SQ HS Diabetes 07/28/22 12/22/22 History mL) subcutaneous pen (Basaglar KwikPen U-100 Insulin) ipratropium 0.5 mg-albuterol 3 mg 3 ml inhalation Q6HP PRN Shortness 07/28/22 12/22/22 History (2.5 mg base)/3 mL nebulization Of Breath soln metformin 1,000 mg tablet 1,000 mg PO BID Diabetes 07/28/22 12/22/22 History ondansetron 4 mg disintegrating 4 mg PO Q6HP PRN Nausea And 07/28/22 12/22/22 History tablet Vomiting trazodone 150 mg tablet 300 mg PO HS SLEEP 07/28/22 12/22/22 History venlafaxine 150 mg 150 mg PO DAILY MOOD 07/28/22 12/22/22 History capsule,extended release 24 hr albuterol sulfate 90 mcg/actuation 2 inh inhalation Q6H PRN shortness 08/23/22 12/22/22 Rx aerosol inhaler (Ventolin HFA) of breath or wheezing 90 days #18 grams doxycycline monohydrate 100 mg 150 mg PO BID preventative 08/23/22 12/22/22 History tablet ascorbic acid (vitamin C) 500 mg 250 mg PO BID Supplement 08/27/22 12/22/22 History tablet (Vitamin C) cyanocobalamin (vitamin B-12) 1,000 mcg PO DAILY Supplement 08/27/22 12/22/22 History 1,000 mcg capsule empagliflozin 10 mg tablet 10 mg PO DAILY . 08/27/22 12/22/22 History (Jardiance) fluticasone furoate 100 1 inh inhalation DAILY allergies 08/27/22 12/22/22 History mcg-vilanterol 25 mcg/dose inhalation powder (Breo Ellipta) magnesium oxide 400 mg (241.3 mg 400 mg PO BID Supplement 08/27/22 12/22/22 History magnesium) tablet spironolactone 50 mg tablet 50 mg PO DAILY blood pressure 09/09/22 12/22/22 History bumetanide 2 mg tablet 2 mg PO BID Fluid 11/24/22 12/22/22 History valsartan 80 mg tablet (Diovan) 80 mg PO BID blood pressure 11/24/22 12/22/22 History aluminum hydrox-magnesium carb 95 30 ml PO QPCHS PRN 12/01/22 12/22/22 History
--- NOTE | 2023-01-04 12:22 | PC.NURSE ---
pt asked for something for pain were she is moving, relayed message to nurse taking care of pt tap acuna at bedside
[2023-01-04 12:39] LABS: Coronavirus 19, PCR Not Detected (NotDetected); Influenza A, PCR Not Detected (NotDetected); Influenza B, PCR Not Detected (NotDetected)
--- NOTE | 2023-01-04 13:17 | PC.NURSE ---
contacted rad to check on status of xray results, reports its still being ready
--- NOTE | 2023-01-04 13:34 | PC.NURSE ---
Paged Dr. Figueroa, Orthopaedics for ER MD
--- NOTE | 2023-01-04 13:39 | PC.NURSE ---
when rounding pt was not in room she was using restroom, tap acuna at bedside
--- NOTE | 2023-01-04 14:09 | PC.NURSE ---
spoke with Dr Figueroa who states he recomends transfer
[2023-01-04 14:12] LABS: C-Reactive Protein 12.1 mg/L (0-4)
[2023-01-04 14:18] LABS: Erythrocyte Sedimentation Rate 23 mm/hr (0-30)
--- NOTE | 2023-01-04 14:24 | PC.NURSE ---
DR. Barba at
--- NOTE | 2023-01-04 14:25 | PC.NURSE ---
Dr. easton at
--- NOTE | 2023-01-04 14:33 | PC.NURSE ---
calling [facility] per MD request
--- NOTE | 2023-01-04 14:36 | PC.NURSE ---
waiting information security back from [facility]
--- NOTE | 2023-01-04 14:44 | PC.NURSE ---
checking on pt no complaints at this time, pt is eating a tray cafeteria brought down to her, tap acuna at bedside
--- NOTE | 2023-01-04 14:48 | PC.NURSE ---
calling Dr Villegas
--- NOTE | 2023-01-04 14:49 | PC.NURSE ---
speaking to dr sanchez
--- NOTE | 2023-01-04 14:54 | HMH.EDGENADL ---
Discharge Plan Disposition Patient Disposition: Xfer Short-Term Hosp Prescriptions Prescriptions: No Action acetaminophen 500 mg tablet 500 mg PO Q6HP PRN (Reason: Mild Pain (Scale Score 1-4)) anastrozole 1 mg tablet 1 mg PO DAILY atorvastatin 40 mg tablet 40 mg PO HS carvedilol 12.5 mg tablet 12.5 mg PO BID Xarelto 15 mg tablet 15 mg PO QPMWITHMEAL Acid Gone Antacid 95-358 mg/15 mL suspension 30 ml PO QPCHS PRN guaifenesin [Diabetic Tussin EX] 100 mg/5 mL liquid 200 mg PO Q4H PRN loperamide 2 mg capsule 2 mg PO Q4HP PRN (Reason: Diarrhea) pantoprazole [Protonix] 20 mg tablet,delayed release (DR/EC) 20 mg PO DAILY baclofen 10 mg tablet 10 mg PO TID alendronate [Fosamax] 70 mg tablet 70 mg PO WEEKLY calcium carbonate-vitamin D3 600 mg(1,500mg) -400 unit tablet 1 tab PO BID albuterol sulfate [Ventolin HFA] 90 mcg/actuation HFA aerosol inhaler 2 inh inhalation Q6H PRN (Reason: shortness of breath or wheezing) 90 Days Qty: 18 3RF doxycycline monohydrate 100 mg tablet 150 mg PO BID spironolactone 50 mg tablet 50 mg PO DAILY oxycodone-acetaminophen 5-325 mg tablet 1 tab PO BID Qty: 60 0RF pregabalin 50 mg capsule 50 mg PO TID Qty: 90 5RF valsartan 80 mg tablet See Rx Instructions .ROUTE .COMPLEX Qty: 60 4RF Dose Instruction: 80MG ORALLY TWICE A DAY Rx Instructions: 80MG ORALLY TWICE A DAY clopidogrel 75 MG tablet 75 mg PO DAILY sennosides 8.6 MG tablet 17.2 mg PO HSP PRN (Reason: Constipation) multivitamin with minerals 1 EACH tablet 1 each PO DAILY fluticasone propionate 15.8 ML spray,suspension 1 spray intranasal BID glipizide 2.5 mg tablet extended release 24hr 2.5 mg PO DAILY ferrous sulfate [iron] 325 mg (65 mg iron) Tablet 325 mg PO DAILY insulin glargine [Basaglar KwikPen U-100 Insulin] 100 unit/mL (3 mL) Insulin Pen 8 unit SQ HS ipratropium-albuterol 0.5 mg-3 mg(2.5 mg base)/3 mL Solution For Nebulization 3 ml INHALATION Q6HP PRN (Reason: Shortness Of Breath) ondansetron 4 mg Tablet,Disintegrating 4 mg PO Q6HP PRN (Reason: Nausea And Vomiting) venlafaxine 150 mg capsule,extended release 24hr 150 mg PO DAILY trazodone 150 mg tablet 300 mg PO HS metformin 1,000 mg tablet 1,000 mg PO BID Hold Instructions: Resume on 08/30/22. magnesium oxide 400 mg (241.3 mg magnesium) tablet 400 mg PO BID ascorbic acid (vitamin C) [Vitamin C] 500 mg tablet 250 mg PO BID fluticasone furoate-vilanterol [Breo Ellipta] 100-25 mcg/dose blister with device 1 inh inhalation DAILY Jardiance 10 mg tablet 10 mg PO DAILY cyanocobalamin (vitamin B-12) 1,000 mcg capsule 1,000 mcg PO DAILY bumetanide 2 mg tablet 2 mg PO BID Referrals Follow up/Referrals: Daniel Barba MD [Primary Care Provider] - See instructions Discharge ED Provider: Stephanie Purcell General Adult HPI General Chief complaint: PAIN Stated complaint: Abscess Time Seen by Provider: 01/04/23 11:48 Mode of Arrival: Ambulatory Source of Information: Patient and Medical Record Limitations: No Limitations Description of Symptoms (Recalled from ER Triage Doc. by RN): pt to ed c/o left knee drainage. pt states she first noticed the abscess x1 month ago. pt reports the abscess has been draning x1 week. pt reports swelling and pain. Related Data Home Medications Medication Instructions Recorded Confirmed acetaminophen 500 mg tablet 500 mg PO Q6HP PRN Mild Pain 02/28/18 12/22/22 (Scale Score 1-4) anastrozole 1 mg tablet 1 mg PO DAILY breast cancer 02/28/18 12/22/22 atorvastatin 40 mg tablet 40 mg PO HS Cholesterol 02/28/18 12/22/22 carvedilol 12.5 mg tablet 12.5 mg PO BID Hypertension 02/28/18 12/22/22 loperamide 2 mg capsule 2 mg PO Q4HP PRN Diarrhea 07/11/18 12/22/22 alendronate 70 mg tablet (Fosamax) 70 mg PO
--- NOTE | 2023-01-04 15:24 | PC.NURSE ---
pt resting in chair no complaints at this time, tap acuna at bedside
--- NOTE | 2023-01-04 15:35 | PC.NURSE ---
speaking to [facility]
--- NOTE | 2023-01-04 15:43 | CT_ITS ---
FINAL REPORT TECHNIQUE: Thin section axial CT images with coronal and sagittal reformats were performed. This study was performed with techniques to keep radiation doses as low as reasonably achievable (ALARA). Individualized dose reduction techniques using automated exposure control or adjustment of mA and/or kV according to the patient''s size were employed. CLINICAL HISTORY: ABSCESS L KNEE COMPARISON: 12/09/2022 FINDINGS: There are postoperative changes from knee arthroplasty. There is a stable lucency adjacent to the stem of the femoral component of uncertain significance, loosening is not excluded. There is a presumed fluid collection anterior to the proximal tibia measuring 6 x 3 x 2.6 cm in maximal axial dimension, previously measured 6.3 x 2.5 cm. Findings may represent an abscess, seroma, or hematoma. Note is made of vascular calcification. IMPRESSION: Stable presumed fluid collection anterior to the proximal tibia, may represent an abscess, seroma, or hematoma. Other stable findings as detailed above. Reviewed, Interpreted and Dictated by Arie Orozco III, MD Transcribed by Anel Cooley Authenticated and [facility]
--- NOTE | 2023-01-04 15:44 | PC.NURSE ---
helped pt to get in wheelchair and take to the restroom, waiting for her to call out when finished so i can take her bath to her room.
--- NOTE | 2023-01-04 16:18 | PC.NURSE ---
rounded on pt states she was in pain, nurse regis was right behind me with pain meds, tap acuna at bedside
--- NOTE | 2023-01-04 16:58 | PC.NURSE ---
pt reports no pain relief from previous medication, notified ER MD who gave verbal orders
--- NOTE | 2023-01-04 17:05 | PC.NURSE ---
Addendum entered by Smita Deluca RN 01/04/23 17:06: pt updated we are waiting on CT scan results to complete her POC, pt verbalized understanding Original Note: pt in recliner, feet propped up for comfort, pt medicated per MAR, call acuna in reach. Pt reported dressing on leg felt tight, replaced coban wrap with vida bandage, pt reported more comfort.
--- NOTE | 2023-01-04 17:07 | PC.NURSE ---
notified ER pt ct results are in the computer
--- NOTE | 2023-01-04 17:21 | PC.NURSE ---
rounded on pt sleeping in chair, tap acuna at bedside
--- NOTE | 2023-01-04 17:25 | PC.NURSE ---
Contacted [facility] for possible transfer
--- NOTE | 2023-01-04 17:31 | PC.NURSE ---
Dr. Barba speaking with Dr. Perdomo, [facility]
--- NOTE | 2023-01-04 17:38 | PC.NURSE ---
pt has been accepted to [place] by Dr. Perdomo
--- NOTE | 2023-01-04 18:17 | PC.NURSE ---
helped pt back to room, nothing needed at this time,tap acuna at bedside
--- NOTE | 2023-01-04 18:17 | PC.NURSE ---
report called to to at [facility] 4[facility]. [facility] notified of transport
== END 2023-01-04 18:55 | disposition short-term general hospital (02) ==
PROVIDERS: Emergency Provider Emergency Medicine; PCP Emergency Medicine
DX: L02.416 Cutaneous abscess of left lower limb (principal); M25.562 Pain in left knee; Z87.891 Personal history of nicotine dependence
CPT/HCPCS: 73562; 73700; 80053; 85025; 85651; 86140; 87040; 87070; 87205; 87635; 87636; 96374; 96375; 99285; C9803; J0131; U0003; U0005

== ENCOUNTER → 2023-01-04 11:42 | Outpatient (CLI) | payer MEDICARE, MEDICAID, SELFPAY | PROVIDERS: PCP Emergency Medicine; Visit Provider Emergency Medicine | DX: I10 Essential (primary) hypertension (principal) | CPT/HCPCS: 87070; 87205 ==

== ENCOUNTER → 2023-03-08 11:26 | Outpatient (CLI) | payer MEDICARE, MEDICAID, SELFPAY | PROVIDERS: PCP Emergency Medicine; Visit Provider Emergency Medicine | DX: S81.002A Unspecified open wound, left knee, initial encounter (principal); B95.7 Other staphylococcus as the cause of diseases classified elsewhere | CPT/HCPCS: 87070; 87077; 87186; 87205 ==

== ENCOUNTER 2023-05-30 11:06 | Outpatient (CLI) | payer MEDICARE, MEDICAID, SELFPAY ==
--- OUTSIDE RECORDS SUMMARY | 2023-05-30 11:11 | XMS_ITS | Continuity of Care Document ---
Author Name Unknown Organization [facility] Address [address] [facility] [address] [place] [address] Phone Care Team Providers Care Furnishings Conservator Name Role Phone SkriAndrei muir DPM Unavailable Unavailable Procedures Procedure Date DEBRIDEMENT OF NAIL(S) BY ANY METHOD(S); OR MORE DEBRIDEMENT OF NAIL(S) BY ANY METHOD(S); 6 OR MORE DEBRIDEMENT OF NAIL(S) BY ANY METHOD(S); 6 OR MORE Advance Directives Directive Yes / No Effective Date File Name No Information Encounters Encounter Description Practice Location Reason(s) For Visit Diagnoses Date Provider Providers Copied on Encounter [facility], [address] [facility] [place] [address], [id number], tel:[phone] [facility] Tinea unguiumType 1 diabetes mellitus with hyperglycemia Pain in right toe(s)Pain in left toe(s) [address]. [address] [facility], [address], [place], [place], [id number], [place]. tel:[phone] [facility], [address], [place], [place], [id number], tel:[phone] [facility] Nail Pain (chief complaint) Tinea unguiumPain in right toe(s)Pain in left toe(s) 7
[2023-05-30 11:27] VITALS: BP 109/61; PULSE 69; RESP 18; TEMP 36.6; O2SAT 93
== END 2023-05-30 11:27 | disposition home or self-care (01) ==
LOC: INF 11:07
PROVIDERS: PCP Emergency Medicine; Visit Provider Internal Medicine Medical Oncology
DX: M81.0 Age-related osteoporosis without current pathological fracture (principal)
CPT/HCPCS: 96372; J0897

== ENCOUNTER → 2023-05-30 12:37 | Outpatient (POV) | payer MEDICARE, MEDICAID, SELFPAY ==
--- OUTSIDE RECORDS SUMMARY | 2023-05-30 12:40 | XMS_ITS ---
Author Name Unknown Address [address] [facility] [place] [address] Phone Organization [facility] Address [address] [facility] [place] [address] Phone Care Team Providers Care Certified Alcohol Counselor Name Role Phone Keagan BENSON, Tello Nathan Unavailable [phone] [ ] Conditions or Problems No information available. Medications No information available. Medications Administered No information available. Allergies, Adverse Reactions, Alerts No information available. Results Date Name Value Unit Range Flag Description Office Visit: Office Visit: 4 ORALTOBACUSE Never Tobacco smoking status SMOK ADVICE yes Smoking c essation education (procedure) SMOK STATUS Current every da y smoker Tobacco smoking status MEDS REVIEW Done Documenta tion of current medications (procedure) Plan of Care Type Date Detail Pending order Continue IV anti biotics Pending order CMP Pending order CBC with Differe ntial Pending order C- reactive prot ein Pending order CPK Procedures Code Procedure Name Date Entry Date CPT-ca Continue IV antibiotics 2022 CPT-11116 CMP [id number] CBC with Differential 2022 CPT-47257 C- reactive protein [id number], [id number] CPK Vital Signs Date Name Value Unit Description BMI (Body Mass Index) 38.61 kg/m2 Bod y Mass Index (Ratio) Body Temperature 97.0 [degF] temperat ure E&M BP Diastolic 50 mm[Hg] blood pressu re, diastolic BP Systolic 105 mm[Hg] blood pressur e, systolic Heart Rate 88 /min pulse rate Height 63 [in_us] height E&M Respiratory Rate 18 /min respirat ory rate E&M Weight Measured 218 [lb_av] weight E& M Immunizations No information available. Advance Directives No information available.
--- OUTSIDE RECORDS SUMMARY | 2023-05-30 12:40 | XMS_ITS ---
Author Name Unknown Address [address] [place] [address] [address] [place] [address] Phone Organization [facility] Address [address] [place] [address] Phone Care Team Providers Care Nail Professional Name Role Phone Ladonna BENSON, Arie Webster Unavailable [ ] Conditions or Problems No information available. Medications Medication Instructions Start Date Stop Date Generic Name NDC Provider DOXYCYCLINE MONOHYDRATE 100 MG CAPS Take 1 capsule by mouth twice a day 1 doxycycline monohydrate [id number] Arie Dougherty MD Medications Administered No information available. Allergies, Adverse Reactions, Alerts No information available. Results Date Name Value Unit Range Flag Description Office Visit: 7 ORALTOBACUSE Never Tobacco smoking status SMOK ADVICE yes Smoking c essation education (procedure) SMOK STATUS Current every da y smoker Tobacco smoking status MEDS REVIEW Done Documenta tion of current medications (procedure) Plan of Care Type Date Detail Pending order Discontinue IV a ntibiotics Pending order New Oral Antibio tic Procedures Code Procedure Name Date Entry Date CPT-DC Discontinue IV antibiotics 2 CPT-robert New Oral Antibiotic Vital Signs Date Name Value Unit Description BMI (Body Mass Index) 38.61 kg/m2 Bod y Mass Index (Ratio) Body Temperature 97.2 [degF] temperat ure E&M BP Diastolic 62 mm[Hg] blood pressu re, diastolic BP Systolic 104 mm[Hg] blood pressur e, systolic Heart Rate 74 /min pulse rate Height 63 [in_us] height E&M Respiratory Rate 16 /min respirat ory rate E&M Weight Measured 218 [lb_av] weight E& M Immunizations No information available. Advance Directives No information available.
--- OUTSIDE RECORDS SUMMARY | 2023-05-30 12:40 | XMS_ITS | Continuity of Care Document ---
Author Name Unknown Organization [facility] Address [address] [address] [address] [place] [address] Phone Care Team Providers Care Underground Conduit Installer Name Role Phone Andrei Dyer DPM Unavailable Unavailable Procedures Procedure Date DEBRIDEMENT OF NAIL(S) BY ANY METHOD(S); OR MORE DEBRIDEMENT OF NAIL(S) BY ANY METHOD(S); OR MORE DEBRIDEMENT OF NAIL(S) BY ANY METHOD(S); 6 OR MORE Advance Directives Directive Yes / No Effective Date File Name No Information Encounters Encounter Description Practice Location Reason(s) For Visit Diagnoses Date Provider Providers Copied on Encounter [facility], [address], [id number], tel:[phone] [facility] Tinea unguiumType 1 diabetes mellitus with hyperglycemia Pain in right toe(s)Pain in left toe(s) [address]. [address] [facility], [place], [id number], [place]. tel:[phone] [place] [address], [address], [id number], tel:[phone] [facility] Nail Pain (chief complaint) Tinea unguiumPain in right toe(s)Pain in left toe(s) 7 [address]. [address] [facility], [address], [id number], [place]. tel:[phone] [place] [address], [address] [address], [place], [place], [id number], tel:[phone] [facility] Nail Pain (chief complaint) Tinea unguiumPain in right toe(s)Pain in left toe(s)Type 1 diabetes mellitus with hyperglycemia [address] Andrei. [address] [facility], [address], [place], [place], [id number], . tel:[phone] Family History Family Member Type Diagnosis Age At Onset No Information Payers Payer name Insurance type Covered democrat ID Authoriza tion(s) Medicare [facility] [id number] Medicaid [facility] [id number] Social History Type Description Quantity Date Captured [...]
--- OUTSIDE RECORDS SUMMARY | 2023-05-30 12:40 | XMS_ITS | Clinical Summary ---
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 of suppressive antibiotics Z79.2 (ICD-10-CM ) 01/14 Active 01/14 Helen L extermination inspector (current) use of antibiotics Anemia in chronic diseases(docu ment disease) D63.8 (ICD-10-CM ) 01/14 Active 01/14 Helen L Anemia in other chronic diseases classified elsewhere Chronic respiratory failure with hypoxia 45192891 (SNOMED CT) 01/14 Active 01/14 Helen L Acute respiratory failure COPD 75023053 (SNOMED CT) 01/14 Active 01/14 Helen L Chronic obstructive lung disease DM Type II E11.9 (ICD-10-CM ) 01/14 Active 01/14 Helen L Type 2 diabetes mellitus without complications Benign Essential Hypertension 95497964 (SNOMED CT) 01/14 Active 01/14 Helen L Benign hypertension Acquired absence of left knee joint 704587218 (SNOMED CT) 03/02 Resolved 03/02 Helen L History of operative procedure on knee Obesity due to excess calories E66.09 (ICD-10-CM ) 03/02 Resolved 03/02 Helen L Other obesity due to excess calories extermination inspector (current) use of anticoagulant s Z79.01 (ICD-10-CM ) 03/02 Resolved 03/02 Helen L extermination inspector (current) use of anticoagulants Staph epi infection B95.7 (ICD-10-CM ) 03/02 Resolved 03/02 Helen L Other staphylococcus as the cause of diseases classified elsewhere Diarrhea 38043190 (SNOMED CT) 09/28 Resolved 09/28 Helen L Diarrhea Staph hominis infection B95.7 (ICD-10-CM ) 09/28 Resolved 09/28 Helen L Other staphylococcus as the cause of diseases classified elsewhere Staph hominis infection B95.7 (ICD-10-CM ) 09/28 Removed 09/28 Arie Dougherty MD Other staphylococcus as the cause of diseases classified elsewhere Diarrhea 17952890 (SNOMED CT) 09/28 Removed 09/28 Arie Dougherty MD Diarrhea Acquired absence of left knee joint 460795569 (SNOMED CT) 03/02 Removed 03/02 Helen L History of operative procedure on knee Cellulitis of left leg 228940459 (SNOMED CT) 03/02 Active 03/02 Helen L Cellulitis of lower limb Knee, left, subsequent encounter, infection/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 T84.54xD (ICD-10-CM ) 03/02 Active 03/02 Helen L Infection and inflammatory reaction due to internal left knee prosthesis, subsequent encounter Staph epi infection B95.7 (ICD-10-CM ) 03/02 Removed 03/02 Helen L Other staphylococcus as the cause of diseases classified elsewhere extermination inspector (current) use of anticoagulant s Z79.01 (ICD-10-CM ) 03/02 Removed 03/02 Helen L extermination inspector (current) use of anticoagulants Obesity due to excess calories E66.09 (ICD-10-CM ) 03/02 Removed 03/02 Helen L Other obesity due to excess calories Hx of malignant neoplasm of breast 102089383 (SNOMED CT) 03/02 Active 03/02 Helen L History of malignant neoplasm of breast Medications Medication Instructions Start Date Stop Date Generic Name NDC Provider ceftriaxone recon soln 2GM IV Q24hrs [facility] 02/18 ceftriaxone recon soln Temi Nroris Cubicin RF 800mg IV Q48hrs [facility] 02/18 daptomycin Temi Norris DOXYCYCLINE MONOHYDRATE 100 MG CAPS Take 1 capsule by mouth twice a day 02/03 doxycycline monohydrate 38375173724 Arie Dougherty MD Cubicin RF 800mg IV Q48hrs [facility] daptomycin Nubia Arcadio ceftriaxone recon soln 2GM IV Q24hrs [facility] ceftriaxone recon soln Nubia Mckean IPRATROPIUM-ALBUT MIKE 0.5-2.5 (3) MG/3ML SOLN 3 ml by mouth PRN 01/27 ipratropium-albut mike 02519563135 Nubia Minor GAVISCON 95-358 MG/15ML SUSP by mouth four times a day 30 mL aluminum hydrox-magnesium carb 39507015953 Nubia Minor IPRATROPIUM-ALBUT MIKE 0.5-2.5 (3) MG/3ML SOLN using nebulizer every six hours PRN ipratropium-albut mike 31372804375 Nubia Minor BASAGLAR KWIKPEN 100 UNIT/ML SOPN subcutaneously once a day insulin glargine 10397287571 Nubia Minor MUCUS RELIEF D 60-600 MG [id number] by mouth twice a day pseudoephedrine-g uaifenesin 32721518114 Nubia Minor VITAMIN B-12 100 MCG TABS by mouth once a day cyanocobalamin (vitamin b-12) 78190631244 Nubia Minor PERCOCET 5-325 MG TABS 1-2 tablet every four to six hours oxycodone-acetami nophen 38355162733 Nubia Minor BIOTIN 1000 MCG TABS by mouth once a day biotin 59333658426 Nubia Minor GABAPENTIN 800 MG TABS by mouth four times a day as needed gabapentin 17282458867 Nubia Minor ATORVASTATIN CALCIUM 40 MG TABS by mouth every morning Hold while on daptomycin atorvastatin 42958892266 Nubia Minor FERROUS SULFATE 325 (65 Fe) MG TABS by mouth once a day ferrous sulfate 90465258612 Nubia Minor VENLAFAXINE HCL 75 MG TABS by mouth twice a day venlafaxine 63227029140 Nubia Minor CITRACAL MAXIMUM 315-6.25 MG-MCG TABS by mouth twice a day calcium citrate-vitamin d3 58349587179 Nubia Minor JANUMET XR 50-1000 MG [id number]-[id number] by mouth twice a day sitagliptin phos-metformin 76555593811 Nubia Minor GNP HYDROCORTISONE/AL OE 1 % CREA Apply to skin twice a day as needed hydrocortisone acetate 51916395425 Nubia Minor MS CONTIN 15 MG CR-TABS by mouth twice a day morphine 24042630322 Nubia Minor OMEPRAZOLE 20 MG TBEC 2 tablet by mouth once a day omeprazole 91011262261 Nubia Minor DOXYCYCLINE HYCLATE 100 MG TABS Take 1 tablet by mouth twice a day 2022/0 01/11 doxycycline hyclate 09877707911 Nubia Minor CARVEDILOL 12.5 MG TABS by mouth twice a day carvedilol 44438888060 Nubia Minor PROMETHAZINE HCL 25 MG TABS by mouth three times a day as needed promethazine 55673308961 Nubia Minor TIZANIDINE HCL 4 MG TABS by mouth three times a day as needed tizanidine 69206989034 Nubia Minor LACTULOSE 10 GM/15ML SOLN 30 ml by mouth as needed lactulose 96131796962 Nubia Minor COLACE 100 MG CAPS by mouth twice a day as needed docusate sodium 26472312412 Nubia Minor XARELTO TABLET 15 mg 15 mg Take 1 by mouth once a day XARELTO TABLET 15 mg 15 mg Nubia Minor ANASTROZOLE 1 MG TABS by mouth once a day anastrozole 09960893036 Nubia Minor ACETAMINOPHEN 500 MG TABS by mouth every six hours PRN acetaminophen 25513174244 Nubia Minor LOPERAMIDE HCL 2 MG CAPS by mouth once a day PRN loperamide 72313788466 Nubia Minor ASCORBIC ACID 500 MG TABS by mouth 0.5 tab am and 0.5 tab pm ascorbic acid (vitamin c) 54143872926 Nubia Minor BACLOFEN 10 MG TABS by mouth three times a day baclofen 90156206903 Nubia Minor BREO ELLIPTA 100-25 MCG/ACT AEPB every morning fluticasone furoate-vilantero l 25447755613 Nubia Minor BUMETANIDE 2 MG TABS by mouth twice a day bumetanide 05978343630 Nubia Minor CALCIUM 600 1500 (600 Ca) MG TABS by mouth twice a day calcium carbonate 35832038294 Nubia Minor D3 HIGH POTENCY 10 MCG (400 UNIT) TABS by mouth 2.5 units am and 2.5 units pm cholecalciferol (vitamin d3) 25051134353 Nubia Minor PLAVIX 75 MG TABS by mouth every morning clopidogrel 90980798089 Nubia Minor VITAMIN B-12 1000 MCG TABS by mouth every morning cyanocobalamin (vitamin b-12) 57101068934 Nubia Minor FLONASE ALLERGY RELIEF 50 MCG/ACT SUSP intranasally every morning fluticasone propionate 11407772575 Nubia Minor FOSAMAX 70 MG TABS by mouth once a week alendronate 56848174129 Nubia Minor GLIPIZIDE ER 2.5 MG OL32E-YAQ by mouth every morning 0.5 tab glipizide 31014541007 Nubia Minor LANTUS SOLOSTAR 100 UNIT/ML SOPN 8 unit subcutaneously every night insulin glargine 33990754870 Nubia Minor IPRATROPIUM-ALBUT MIKE 0.5-2.5 (3) MG/3ML SOLN 3 ml by mouth PRN ipratropium-albut mike 62944283702 Nubia Minor JARDIANCE 10 MG TABS by mouth every morning empagliflozin 70161325394 Nubia Minor MAGNESIUM OXIDE 400 MG TABS by mouth twice a day magnesium oxide 27600719934 Nubia Minor METFORMIN HCL 1000 MG TABS by mouth twice a day metformin 91986932797 Nubia Minor MULTI-VITAMIN HP/MINERALS CAPS by mouth once a day multivitamin,tx-m inerals 34513332093 Nubia Isaac ONDANSETRON HCL 4 MG TABS by mouth twice a day PRN ondansetron hcl 01052352160 Nubia Isaac PANTOPRAZOLE SODIUM 20 MG TBEC by mouth once a day pantoprazole 87416260036 Nubia Isaac PREGABALIN 50 MG CAPS by mouth three times a day pregabalin 20516373017 Nubia Isaac SENNA 8.6 MG TABS by mouth 2 tabs PRN sennosides 44500416486 Nubia Isaac SPIRONOLACTONE 50 MG TABS by mouth once a day spironolactone 73588988415 Nubia Isaac TRAZODONE HCL 150 MG TABS by mouth once a day 2 tabs trazodone 96808957512 Nubia Isaac VALSARTAN 80 MG TABS by mouth twice a day valsartan 22219909121 Nubia Isaac VENLAFAXINE HCL ER 150 MG OL95Y-HDO by mouth every morning venlafaxine 35975981004 Nubia Isaac VANCOMYCIN HCL SOLR 1gm IV q 12 x 6wks [facility] [phone] 10/05 VANCOMYCIN HCL SOLR 83508886061 Libby Cabello RN MS CONTIN 15 MG CR-TABS by mouth twice daily MORPHINE SULFATE 22375908749 Arie Dougherty MD PERCOCET 5-325 MG TABS 1-2 tabs, every four to six hours, do not exceed 4000mg of acetaminophen per day OXYCODONE-ACETAMI NOPHEN 68996929870 Arie Dougherty MD [facility] IRON 325 (65 Fe) MG TABS by mouth daily FERROUS SULFATE 73133407074 Arie Dougherty MD COLACE 100 MG CAPS by mouth twice daily as needed DOCUSATE SODIUM 02486461838 Arie Dougherty MD DOXYCYCLINE HYCLATE 100 MG TABS take 1 tab po BID DOXYCYCLINE HYCLATE 47590070016 Arie Dougherty MD XARELTO TABLET Take one by mouth once daily. RIVAROXABAN TABS 39078616269 Arie Dougherty MD COUMADIN 5 MG ORAL TABLET by mouth, AC dinner 10/17 WARFARIN SODIUM 49091990938 Arie Dougherty MD VANCOMYCIN HCL SOLR 1gm IV q 12 x 6wks [facility] [phone] VANCOMYCIN HCL SOLR 96739943175 Minnie Vvias VANCOMYCIN HCL SOLR 750 mg IV q 12 x 6wks [facility] [phone] 03/31 VANCOMYCIN HCL SOLR 65234491393 Minnie Vivas VANCOMYCIN HCL SOLR 750 mg IV q 12 x 6wks [facility] [phone] VANCOMYCIN HCL SOLR 48365378404 Daily Lewis RN VENLAFAXINE HCL 75 MG TABS by mouth twice daily VENLAFAXINE HCL 99986941987 Kulwant P PROMETHAZINE HCL 25 MG TABS by mouth three times a day as needed PROMETHAZINE HCL 17991978742 Kulwant P B-12 100 MCG TABS by mouth daily CYANOCOBALAMIN 25985799666 Kulwant P JANUMET XR 50-1000 MG SR97A-MYZ by mouth twice daily SITAGLIPTIN-METFO RMIN HCL 40542249807 Kulwant P TIZANIDINE HCL 4 MG TABS by mouth three times a day as needed TIZANIDINE HCL 72848101762 Kulwant P GABAPENTIN 800 MG TABS by mouth four times a day as needed GABAPENTIN 98880400361 Kulwant P CARVEDILOL 12.5 MG TABS by mouth twice daily CARVEDILOL 89415700914 Kulwant P ANASTROZOLE 1 MG TABS by mouth daily ANASTROZOLE 49503299803 Kulwant P CITRACAL MAXIMUM 315-6.25 MG-MCG TABS by mouth twice daily CALCIUM CITRATE-VITAMIN D 63725136159 Kulwant P [facility] OMEPRAZOLE 20 MG TBEC 2 tabs by mouth once daily OMEPRAZOLE 34195615396 Kulwant P BIOTIN 1000 MCG TABS by mouth daily BIOTIN 40292855380 Kulwant P ATORVASTATIN CALCIUM 40 MG TABS by mouth at bedtime ATORVASTATIN CALCIUM 14481629935 Kulwant P COUMADIN 5 MG ORAL TABLET by mouth, AC dinner WARFARIN SODIUM 28949613519 Kulwant P LACTULOSE SOLN 30mL by mouth as needed LACTULOSE SOLN 53238401216 Kulwant P HYDROCORTISONE ACETATE 1 % CREA apply topically twice a day as needed HYDROCORTISONE ACETATE 13860727347 Kulwant P MS CONTIN 15 MG CR-TABS by mouth twice daily MORPHINE SULFATE 67084585879 Kulwant P [facility] IRON 325 (65 Fe) MG TABS by mouth daily FERROUS SULFATE 34999534825 Kulwant P COLACE 100 MG CAPS by mouth twice daily as needed DOCUSATE SODIUM 42724852128 Kulwant P PERCOCET 5-325 MG TABS 1-2 tabs, every four to six hours, do not exceed 4000mg of acetaminophen per day OXYCODONE-ACETAMI NOPHEN 35630429072 Kulwant P VANCOMYCIN HCL SOLR 1gm IV q 12 x 6wks [facility] [phone] VANCOMYCIN HCL SOLR 65637786657 [facility] Medications Administered No information available. Allergies, Adverse Reactions, Alerts Allergy Name Reaction Description Start Date Severity Statu s Provider WELLBUTRIN rash Moderate Active Kulwant P ULTRAM rash Moderate Active Kulwant P ADHESIVE TAPE rash Moderate Active Kulwant P SULFA anaphylaxis Critical Active Kulwant P LORTAB lip swelling Severe Active Kulwant P Results Date Name Value Unit Range Flag Description Chart Maintenance: labs 03/08 MONOCYTE % 9.0 % Monocytes/ 100 leukocytes in Blood by Automated count Chart Maintenance: updated H H labs 08/02/16 PMN % 50.0 % Neutrophils/1 00 leukocytes in Blood by Automated count Chart Maintenance: Labs VANCOMY CHAL 18.0 ug/mL vancomyc in level, serum, trough Chart Maintenance: Labs 07/23 INR 1.0 INR in [place] et poor plasma by Coagulation assay PT PATIENT 10.9 s Prothrombi n time (PT) Lab Report: C-REACTIVE PROTE IN CRPCARDRISK 0.90 MG/DL 0.00-10.0 0 C reactive protein [Mass/volume] in Serum or Plasma Office Visit: rm #8 DIET VIDEO CONTROL OPERATOR yes Dietary management education, guidance, and counseling (procedure) CIGARET SMKG yes Tobacco smoking status Lab Report: SEDIMENTATION RA TE ESR 25 mm/h 0-30 Erythrocyte sedimentation rate by Westergren method Office Visit: rm 7 ORALTOBACUSE Never Tobacco smoking status SMOK ADVICE yes Smoking c essation education (procedure) SMOK STATUS Current every day smoker Tobacco smoking status MEDS REVIEW Done Documenta tion of current medications (procedure) Chart Maintenance BASO# 0.10 Basophils [#/ volume] in Blood BASOPHIL % 0.7 % Basophils/ 100 leukocytes in Blood by Manual count EOS ABSLT 1.50 10*3/uL Eosinophils [#/volume] in Blood % EOS AUTO 17.7 % Eosinophil s/100 leukocytes in Blood by Automated count MONOCYTE BF 10.6 % monocytes as percent of body fluid leukocytes MONOSCT AUTO 0.90 10*3/uL Monocyte s [#/volume] in Blood by Automated count LYMPHCT AUTO 1.70 10*3/mm3 Lymphoc ytes [#/volume] in Blood by Automated count LYMPHS % 20.2 % Lymphocytes/ 100 leukocytes in Blood by Automated count ABS NEUTROPH 4.20 10*3/uL Neutroph ils [#/volume] in Blood NEUTROP BF 50.8 % Neutrophil s/100 leukocytes in Body fluid CPK 48 U/L Creatine hoang se [Enzymatic activity/volume] in Serum or Plasma CRP 27.5 mg/dL C reactive pr otein [Mass/volume] in Serum or Plasma PLATELETS 315 10*3/mm3 Platelets [#/volume] in Blood by Automated count HCT 30 % Hematocrit [V olume Fraction] of Blood by Automated count HGB 9.3 g/dL Hemoglobin [Mass/volume] in Blood RBC 3.63 10*6/mm3 Erythrocytes [#/volume] in Blood by Automated count WBC 7.7 10*3/mm3 Leukocytes [#/volume] in Blood by Automated count BILI TOTAL 0.2 mg/dL Bilirubin. total [Mass/volume] in Serum or Plasma SGOT (AST) 16 U/L Aspartate aminotransferase [Enzymatic activity/volume] in Serum or Plasma SGPT (ALT) 21 U/L Alanine aminotransferase [Enzymatic activity/volume] in Serum or Plasma ALK PHOS 73 U/L Alkaline david sphatase [Enzymatic activity/volume] in Blood CREATININE 2.1 mg/dL Creatinine [Mass/volume] in Serum or Plasma BUN 30 mg/dL Urea nitrogen [Mass/volume] in Serum or Plasma CALCIUM 9.1 mg/dL Calcium [Moles/volume] in Serum or Plasma POTASSIUM 4.6 mmol/L Potassium [Moles/volume] in Serum or Plasma SODIUM 131 mmol/L Sodium [Moles/volume] in Serum or Plasma GLUCOSE SER 244 mg/dL Glucose [Mass/volume] in Serum or Plasma Plan of Care Type Date Detail Pending order Discontinue IV a ntibiotics Pending order New Oral Antibio tic Pending order Continue IV anti biotics Pending order CMP Pending order CBC with Differe ntial Pending order C- reactive prot ein Pending order CPK Pending order IV Fluids Pending order STAT Labs Pending order STAT Labs Pending order STAT Labs Pending order C- reactive prot ein Pending order Sedimentation Ra te (ESR) Pending order Vancomycin Troug h Pending order CMP Pending order CBC with Differe ntial Pending order C- reactive prot ein Pending order Sedimentation Ra te (ESR) Pending order Continue IV anti biotics Pending order Weekly PICC Line Care Pending order CMP Pending order CBC with Differe ntial Pending order Vancomycin Troug h Pending order C- reactive prot ein Pending order Sedimentation Ra te (ESR) Pending order C-Diff PCR Pending order New IV antibioti c Pending order PICC Line Insert ion Pending order CMP Pending order CBC with Differe ntial Pending order C- reactive prot ein Pending order Sedimentation Ra te (ESR) Pending order Discontinue IV a ntibiotics Pending order PICC Removal Pending order Continue IV anti biotics Pending order CMP Pending order CBC with Differe ntial Pending order C- reactive prot ein Pending order Sedimentation Ra te (ESR) Pending order Vancomycin Troug h Pending order Continue IV anti biotics Pending order CMP Pending order CBC with Differe ntial Pending order C- reactive prot ein Pending order Sedimentation Ra te (ESR) Pending order Vancomycin Troug h Pending order Hepatitis C Atb: (ICD 10 Code: Z11.59) Pending order Hepatitis C Atb: (ICD 10 Code: Z11.59) Pending order Continue IV anti biotics Patient education Medications Patient education WEIGHT%20MANAG EMENT Patient education WEIGHT%20MANAG EMENT Patient education WEIGHT%20MANAG EMENT Patient education WEIGHT%20[facility] Procedures Code Procedure Name Date Entry Date CPT-DC Discontinue IV antibiotics 2 CPT-robert New Oral Antibiotic CPT-ca Continue IV antibiotics 2022 CPT-08889 CMP [id number] CBC with Differential 2022 CPT-39612 C- reactive protein [id number] CPK CPT-J7030 IV Fluids CPT-sl STAT Labs CPT-sl STAT Labs CPT-sl STAT Labs CPT-26237 C- reactive protein CPT-42184 Sedimentation Rate (ESR) 201 02/20/04 CPT-66773 Vancomycin Trough CPT-12099 CMP [id number] CBC with Differential 2015 CPT-20974 C- reactive protein CPT-18331 Sedimentation Rate (ESR) 201 01/31/26 CPT-ca Continue IV antibiotics 2015 CPT-wpc Weekly PICC Line Care 09/28 CPT-50718 CMP [id number] CBC with Differential 2015 CPT-13155 Vancomycin Trough CPT-82395 C- reactive protein CPT-98131 Sedimentation Rate (ESR) 201 01/31/07 CPT-cdpcr C-Diff PCR CPT-isi New IV antibiotic CPT-23910 PICC Line Insertion CPT-21632 CMP [id number] CBC with Differential 2015 CPT-03314 C- reactive protein CPT-24904 Sedimentation Rate (ESR) 201 01/30/30 CPT-DC Discontinue IV antibiotics 2 CPT-PICREM PICC Removal CPT-ca Continue IV antibiotics 2015 CPT-77842 CMP [id number] CBC with Differential 2015 CPT-57556 C- reactive protein CPT-20529 Sedimentation Rate (ESR) 201 01/27/01 CPT-53157 Vancomycin Trough CPT-ca Continue IV antibiotics 2015 CPT-55082 CMP [id number] CBC with Differential 2015 CPT-88420 C- reactive protein CPT-60138 Sedimentation Rate (ESR) 201 01/27/20 CPT-27129 Vancomycin Trough CPT-ca Continue IV antibiotics 2015 Vital Signs Date Name Value Unit Description [...] M Immunizations No information available. Advance Directives Directive Description Start Date ADVANCED DIRECTIVES ESTABLISHED DO NOT RESUSCITATE IF RESULTS OF A STROK E, OTHERWISE FULL CODE. NO ADVANCED DIRECTIVES ESTABLISHED 03/03
--- OUTSIDE RECORDS SUMMARY | 2023-05-30 12:40 | XMS_ITS ---
Author Name Unknown Address [address] [place] [address] Phone Organization [facility] Address [address] [place] [address] Phone Care Team Providers Care Wheel Press Clerk Name Role Phone Arie Dougherty MD Unavailable [ ] Conditions or Problems No information available. Medications No information available. Medications Administered No information available. Allergies, Adverse Reactions, Alerts No information available. Results Date Name Value Unit Range Flag Description Office Visit: Office Visit: [facility] ORALTOBACUSE Never Tobacco smoking status SMOK ADVICE yes Smoking c essation education (procedure) SMOK STATUS Current every da y smoker Tobacco smoking status MEDS REVIEW Done Documenta tion of current medications (procedure) Plan of Care No information available. Procedures No information available. Vital Signs Date Name Value Unit Description BMI (Body Mass Index) 38.61 kg/m2 Bod y Mass Index (Ratio) Body Temperature 97.6 [degF] temperat ure E&M BP Diastolic 78 mm[Hg] blood pressu re, diastolic BP Systolic 118 mm[Hg] blood pressur e, systolic Heart Rate 72 /min pulse rate Respiratory Rate 20 /min respirat ory rate E&M Weight Measured 218 [lb_av] weight E& M Immunizations No information available. Advance Directives Directive Description Start Date ADVANCED DIRECTIVES ESTABLISHED
== END ==
PROVIDERS: Visit Provider Internal Medicine Nephrology
DX: Z00.00 Encounter for general adult medical examination without abnormal findings (principal)

== ENCOUNTER 2023-06-01 08:33 | Day surgery (SDC) | payer MEDICARE, MEDICAID, SELFPAY ==
[2023-05-16 14:13] VITALS: BMI 38.4
[2023-06-01] VITALS (7 sets, daily range): BP systolic 96–147; BP diastolic 66–95; PULSE 78–81; RESP 16–18; TEMP 36.2–36.9; O2SAT 93–95
--- OUTSIDE RECORDS SUMMARY | 2023-06-01 08:37 | XMS_ITS ---
Author Name Unknown Address [address] [place] [address] [address]ad [address] [place] [address] Phone Organization [facility] Address [address] [place] [address] Phone Care Team Providers Care Oracle Soa Consultant Name Role Phone Ladonna BENSON, Arie Angelo [ ] Conditions or Problems No information available. Medications Medication Instructions Start Date Stop Date Generic Name NDC Provider DOXYCYCLINE MONOHYDRATE 100 MG CAPS Take 1 capsule by mouth twice a day 1 doxycycline monohydrate [id number] Arie Dougherty MD Medications Administered No information [...]
--- OUTSIDE RECORDS SUMMARY | 2023-06-01 08:37 | XMS_ITS | Clinical Summary ---
Author Name Unknown Address [address] [place] [address] Phone Organization [facility] Address [address] [place] [address] Phone Care Team Providers Care Clinical Review Specialist Name Role Phone Arie Dougherty MD [phone] [ ] Conditions or Problems Problem Name Problem Code Onset Date Status Entry Date Provider Comment Standard Description Annotate senior living (current) use of suppressive antibiotics Z79.2 (ICD-10-CM ) 01/14 Active 01/14 Helen L senior living (current) use of antibiotics Anemia in chronic diseases(docu ment disease) D63.8 (ICD-10-CM ) 01/14 Active 01/14 Helen L Anemia in other chronic diseases classified elsewhere Chronic respiratory failure with hypoxia 69915046 (SNOMED CT) 01/14 Active 01/14 Helen L Acute respiratory failure COPD 46927619 (SNOMED CT) 01/14 Active 01/14 Helen L Chronic obstructive lung disease DM Type II E11.9 (ICD-10-CM ) 01/14 Active 01/14 Helen L Type 2 diabetes mellitus without complica
--- OUTSIDE RECORDS SUMMARY | 2023-06-01 08:37 | XMS_ITS ---
Author Name Unknown Address [address] [place] [address] [address] [place] [address] Phone Organization [facility] Address [address] [facility] [facility] [address] [facility] [address] [place] [address] Phone Care Team Providers Care Data Management Name Role Phone Keagan BENSON, Tello Nathan Unavailable [ ] Conditions or Problems No [...] Entry Date CPT-ca Continue IV antibiotics 2022 CPT-05956 CMP [id number] CBC with Differential 2022 CPT-37120 C- reactive protein [id number], [id number] CPK Vital Signs Date Name Value Unit Description 202
--- OUTSIDE RECORDS SUMMARY | 2023-06-01 08:38 | XMS_ITS | Continuity of Care Document ---
Author Name Unknown Organization [facility] Address [address] [facility] [address] [place] [address] Phone Care Team Providers Care Site Coordinator Name Role Phone SkriAndrei muir DPM Unavailable [...] Diagnoses Date Provider Providers Copied on Encounter [facility], [address] [facility] [address] [place] [address], [id number], tel:[phone] [facility] Tinea unguiumType 1 diabetes mellitus with hyperglycemia Pain in right toe(s)Pain in left toe(s) [address]. [address] [facility], [address], [place], [place], [id number], [place]. tel:[phone] [facility], [address] [facility] [address], [place], [place], [id number], tel:[phone] [facility] Nail Pain (chief complaint) Tinea unguiumPain in right toe(s)Pain in left toe(s) 7
--- OUTSIDE RECORDS SUMMARY | 2023-06-01 08:38 | XMS_ITS ---
Author Name Unknown Address [address] [place] [address] Phone Organization [facility] Address [address] [place] [address] Phone Care Team Providers Care Ammonia Operator Name Role Phone Arie Dougherty MD Unavailable [ ] Conditions or Problems No information available. Medications No information available. Medications Administered No information available. Allergies, Adverse Reactions, Alerts No information available. Results Date Name Value Unit Range Flag Description Office Visit: Office Visit: 9 [facility] ORALTOBACUSE Never Tobacco smoking status SMOK [...]
[2023-06-01 09:16] LABS: POC Glucose,Bedside 239 (70-110)
--- NOTE | 2023-06-01 09:20 | P.PNANES_ITS ---
[facility] Disclaimer: The information contained in this section may have been updated after the patient was seen, as this information can be updated by other users. 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 Denies recent onset of TIA/stroke like symptoms. Functional decline x last 6 months, wheelchair bound due to severe left knee pain, swelling. Diabetes mellitus Dyspnea on exertion Edema Foot pain History of breast cancer History of smoking 30 or more pack years Left leg swelling Mediastinal lymphadenopathy PVC (premature ventricular contraction) Restrictive lung disease SOB (shortness of breath) on exertion Stopped smoking with greater than 30 pack year history Tobacco abuse Surgical History History of CEA (carotid endarterectomy) History of right mastectomy History of total left knee replacement Family History Other Black lung disease Diabetes Hypertension Social History Smoking Status: Former smoker tobacco type: cigarettes packs per day: 1 smoking status stop date: 06/2022 alcohol intake: never substance use type: denies use current occupational status: disabled Travel in the last 8 weeks: None household members: other housing: assisted caffeine: Yes [facility] Anesthesia Checklist Patient Identification Patient Identification: Arm Band, Family and Verbal (Name & ) Structural Data Admitted From: Long-term Nursing Facility Planned Operative Procedure/s: Colonoscopy Consent for Planned Operative Procedure(s) Verified: Yes Verified Documents: Surgical Consent and History and Physical NPO Status Verified Time NPO: 06:00 Chart Verification Results Verified: CBC, BMP and ECG Additional verifications Patient : No Anesthesia Reactions: No Hx Blood Transfusions: No Blood Transfusion Reaction: No Cephalosporin Allergy: No Cardiovascular Assessment Heart Sounds: S1 & S2 Pulse Rhythm: Irregular Airway Assessment Mallampati Score:: Class II C-Spine Mobility Assessed: Yes TMJ Mobility Assessed: Yes Dentition: Poor Dentition (Nothing loose per pt.) Neurological Assessment Level of Consciousness: Awake, Alert and Appropriate Hx Seizures: No Numbness or tingling in extremities: Yes (+Left Arm paralysis, Generalized Left- sided weakness) Anesthesia Plan Anesthesia Risk discussed: Yes Anesthesia Plan: Verified ASA Class: III Anesthesia Type: MAC
--- NOTE | 2023-06-01 09:54 | HMH.SCOPE ---
Procedure: Date: 06/01/23 Patient Date of :: 1960 Procedure Performed:: Colonoscopy Indications:: Positive cologuard test Performing Provider:: Huey Colby MD Referring Provider:: Daniel Barba MD Sedation:: See RN records Procedure:: After placing the patient in the left lateral decubitus position, the colonoscopy was gently inserted into the rectum and under direct visualization advanced to the cecum which was identified by transillumination in the right lower quadrant, identification of the ileocecal valve, appendiceal orifice, and cecal strap. Color, texture, mucosa, and anatomy of the colon were carefully examined with the scope. Findings:: Anal canal: normal Rectum: Hemorrhoids Sigmoid colon: diverticulosis. Fair preparation Descending colon: Fair preparation Splenic flexure: normal Transverse colon: normal without polyps or inflammatory changes Hepatic flexure: normal Ascending colon: normal without polyps or inflammatory changes Cecum: normal Terminal ileum: not visualized Impression: Normal appearing colon Diverticulosis Colon spasms Fair preparation of distal colon, time spent irrigating and cleansing mucosa Recommendations:: Reassuring examination Repeat colonoscopy in 5 years Complications:: None Estimated blood obtained (mL): 0 Colonoscopy Component Colonoscopy Component Was a colonoscopy performed during today's procedure?: Yes Recommended follow up colonoscopy of at least 10 years?: Yes
--- NOTE | 2023-06-01 12:17 | P.PNANES_ITS ---
[facility] Anesthesia Record Part I Anesthesia Record I Intake, IV Amount: 200 Hydration: Adequate Estimated blood loss (mL): 0 Urine output (mL): 0 Blood Products used (#): none Blood Pressure: 96/66 SaO2: 93 Pulse Rate: 79 Airway Patency: Patent Respiratory Rate: 18 Temperature: 97.4 F Patient is:: Awake and Stable Stable to PACU at:: 09:57
== END 2023-06-01 10:26 | disposition home or self-care (01) ==
PROVIDERS: PCP Emergency Medicine; Visit Provider Internal Medicine
PROC: 0DJD8ZZ Inspection of Lower Intestinal Tract, Via Natural or Artificial Opening Endoscopic (ICD-10-PCS; CPT 45378; principal; 2023-06-01 09:30)
DX: R19.5 Other fecal abnormalities (principal); K64.8 Other hemorrhoids; K57.30 Diverticulosis of large intestine without perforation or abscess without bleeding; E11.9 Type 2 diabetes mellitus without complications
CPT/HCPCS: 45378; 82962

== ENCOUNTER → 2023-06-14 12:09 | Outpatient (CLI) | payer MEDICARE, MEDICAID, SELFPAY ==
--- OUTSIDE RECORDS SUMMARY | 2023-06-14 12:14 | XMS_ITS | Clinical Summary ---
Author Name Unknown Address [address] [place] [address] Phone Organization [facility] Address [address] [place] [address] Phone Care Team Providers Care Director Of Dietary Name Role Phone Arie Dougherty MD [ ] Conditions or Problems Problem Name Problem Code Onset Date Status Entry Date Provider Comment Standard Description Annotate FPC (current) use of suppressive antibiotics Z79.2 (ICD-10-CM ) 01/14 Active 01/14 Helen L FPC (current) use of antibiotics Anemia in chronic diseases(docu ment disease) D63.8 (ICD-10-CM ) 01/14 Active 01/14 Helen L Anemia in other chronic diseases classified elsewhere Chronic respiratory failure with hypoxia 09731878 (SNOMED CT) 01/14 Active 01/14 Helen L Acute respiratory failure COPD 14798938 (SNOMED CT) 01/14 Active 01/14 Helen L Chronic obstructive lung disease DM Type II E11.9 (ICD-10-CM ) 01/14 Active 01/14 Helen L Type 2 diabetes mellitus without complica
--- OUTSIDE RECORDS SUMMARY | 2023-06-14 12:14 | XMS_ITS | Continuity of Care Document ---
Author Name Unknown Organization [facility] Address [address] [place] [address] Phone Care Team Providers Care Marketing Program Manager Name Role Phone SkriAndrei muir DPM Unavailable [...] Diagnoses Date Provider Providers Copied on Encounter [facility], [address] [facility] [address] [place] [address], [id number], tel:[phone] [facility] Tinea unguiumType 1 diabetes mellitus with hyperglycemia Pain in right toe(s)Pain in left toe(s) [address]. [address] [facility] [address], [address], [place], [place], [id number], [place]. tel:[phone] [facility], [address] [facility] [address], [place], [place], [id number], tel:[phone] [facility] Nail Pain (chief complaint) Tinea unguiumPain in right toe(s)Pain in left toe(s) 7
--- OUTSIDE RECORDS SUMMARY | 2023-06-14 12:14 | XMS_ITS ---
Author Name Unknown Address [address] [place] [address] [address] [place] [address] Phone Organization [facility] Address [address] [place] [address] Phone Care Team Providers Care President [employer] Name Role Phone Keagan BENSON, Tello Nathan [...] Entry Date CPT-ca Continue IV antibiotics 2022 CPT-78159 CMP [id number] CBC with Differential 2022 CPT-79240 C- reactive protein [id number], [id number] CPK Vital Signs Date Name Value Unit Description 202
--- OUTSIDE RECORDS SUMMARY | 2023-06-14 12:14 | XMS_ITS ---
Author Name Unknown Address [address] [place] [address] [address] [place] [address] Phone Organization [facility] Address [address] [place] [address] Phone Care Team Providers Care Painting Instructor Name Role Phone Ladonna BENSON, Arie Angelo [phone] [ ] Conditions or Problems No information available. Medications Medication Instructions Start Date Stop Date Generic Name NDC Provider DOXYCYCLINE MONOHYDRATE 100 MG CAPS Take 1 capsule by mouth twice a day 1 doxycycline monohydrate [id number] Arie Dougherty MD Medications Administered No information [...]
--- OUTSIDE RECORDS SUMMARY | 2023-06-14 12:14 | XMS_ITS ---
Author Name Unknown Address [address] [place] [address] Phone Organization [facility] Address [address] [place] [address] Phone Care Team Providers Care Hydraulic And Plumbing Installer Name Role Phone Arie Dougherty MD Unavailable [ ] Conditions or Problems No information available. Medications No information available. Medications Administered No information available. Allergies, Adverse Reactions, Alerts No information available. Results Date Name Value Unit Range Flag Description Office Visit: Office Visit: 9 [facility] ORALTOBACUSE Never Tobacco smoking status SMOK [...]
== END ==
PROVIDERS: PCP Emergency Medicine; Visit Provider Emergency Medicine
DX: S81.002A Unspecified open wound, left knee, initial encounter (principal)
CPT/HCPCS: 87070; 87205

== ENCOUNTER → 2023-07-21 09:49 | Outpatient (CLI) | payer MEDICARE, MEDICAID, SELFPAY | PROVIDERS: PCP Emergency Medicine; Visit Provider Emergency Medicine | DX: M25.562 Pain in left knee (principal); L03.116 Cellulitis of left lower limb; B96.89 Other specified bacterial agents as the cause of diseases classified elsewhere | CPT/HCPCS: 87070; 87205 ==

== ENCOUNTER → 2023-07-29 16:45 | Outpatient (CLI) | payer MEDICARE, MEDICAID, SELFPAY ==
--- OUTSIDE RECORDS SUMMARY | 2023-07-29 16:50 | XMS_ITS | Clinical Summary ---
Author Name Unknown Address [address] [facility] [address] [place] [address] Phone Organization [facility] Address [address] [facility] [place] [address] Phone Care Team Providers Care Clinical Reviewer Name Role Phone Arie Dougherty MD [ ] Conditions or Problems Problem Name Problem Code Onset Date Status Entry Date Provider Comment Standard Description Annotate snf (current) use of suppressive antibiotics Z79.2 (ICD-10-CM ) 01/14 Active 01/14 Helen L snf (current) use of antibiotics Anemia in chronic diseases(docu ment disease) D63.8 (ICD-10-CM ) 01/14 Active 01/14 Helen L Anemia in other chronic diseases classified elsewhere Chronic respiratory failure with hypoxia 29995339 (SNOMED CT) 01/14 Active 01/14 Helen L Acute respiratory failure COPD 87590829 (SNOMED CT) 01/14 Active 01/14 Helen L Chronic obstructive lung disease DM Type II E11.9 (ICD-10-CM ) 01/14 Active 01/14 Helen L Type 2 diabetes mellitus without complica
--- OUTSIDE RECORDS SUMMARY | 2023-07-29 16:50 | XMS_ITS ---
Author Name Unknown Address [address] [place] [address] Phone Organization [facility] Address [address] [place] [address] Phone Care Team Providers Care Retail Loan Originator Name Role Phone Arie Dougherty MD Unavailable [ ] Conditions or Problems No information available. Medications No information available. Medications Administered No information available. Allergies, Adverse Reactions, Alerts No information available. Results Date Name Value Unit Range Flag Description Office Visit: Office Visit: 9 [facility] ORALTOBACUSE Never Tobacco smoking status SMOK ADVICE [...]
--- OUTSIDE RECORDS SUMMARY | 2023-07-29 16:50 | XMS_ITS ---
Author Name Unknown Address [address] [place] [address] [address] [place] [address] Phone Organization [facility] Address [address] [facility] [address] [place] [address] Phone Care Team Providers Care Retail Loan Originator Assistant Name Role Phone Keagan BENSON, Tello Nathan [...] Entry Date CPT-ca Continue IV antibiotics 2022 CPT-45468 CMP [id number] CBC with Differential 2022 CPT-17746 C- reactive protein [id number], [id number] CPK Vital Signs Date Name Value Unit Description 202
--- OUTSIDE RECORDS SUMMARY | 2023-07-29 16:50 | XMS_ITS ---
Author Name Unknown Address [address] [place] [address] [address] [place] [address] Phone Organization [facility] Address [address] [place] [address] Phone Care Team Providers Care Dairy Farm Supervisor Name Role Phone Ladonna BENSON, Arie Angelo [phone] [ ] Conditions or Problems No information available. Medications Medication Instructions Start Date Stop Date Generic Name NDC Provider DOXYCYCLINE MONOHYDRATE 100 MG CAPS Take 1 capsule by mouth twice a day 1 doxycycline monohydrate [id number] Arie Dougherty MD Medications Administered No information [...]
--- OUTSIDE RECORDS SUMMARY | 2023-07-29 16:50 | XMS_ITS | Continuity of Care Document ---
Author Name Unknown Organization [facility] Address [address] [place] [address] Phone Care Team Providers Care Mis Manager Name Role Phone SkriAndrei muir DPM [...] Diagnoses Date Provider Providers Copied on Encounter [facility], [address] [facility] [address] [place] [address], [id number], tel:[phone] [facility] Tinea unguiumType 1 diabetes mellitus with hyperglycemia Pain in right toe(s)Pain in left toe(s) [address]. [address] [address] [facility], [address], [place], [place], [id number], [place]. tel:[phone] [facility], [address] [facility] [address], [place], [place], [id number], tel:[phone] [facility] Nail Pain (chief complaint) Tinea unguiumPain in right toe(s)Pain in left toe(s) 7
[2023-07-29 21:05] LABS: Amphetamine/Metha Screen,Urine Negative ng/ml (<1000)
[2023-07-29 21:06] LABS: Barbiturates Screen,Urine Negative ng/ml (<200); Benzodiazepines Screen,Urine Negative ng/ml (<200)
[2023-07-29 21:07] LABS: Cannabinoid Screen,Urine Positive ng/ml (<50)
[2023-07-29 21:09] LABS: Cocaine Screen,Urine Negative ng/ml (<300)
[2023-07-29 21:10] LABS: Methadone Screen,Urine Negative ng/ml (<300); Opiate Screen,Urine Negative ng/ml (<300)
[2023-07-29 21:11] LABS: Phencyclidine Screen,Urine Negative ng/ml (<25)
== END ==
PROVIDERS: PCP Physician Assistant; Visit Provider Physician Assistant
DX: Z79.899 Other long term (current) drug therapy (principal)
CPT/HCPCS: 80305

== ENCOUNTER 2023-09-15 11:35 | Outpatient (CLI) | payer MEDICARE, MEDICAID, SELFPAY ==
--- NOTE | 2023-09-15 11:42 | XR_ITS ---
FINAL REPORT CLINICAL HISTORY: left knee pain COMPARISON: None FINDINGS: LEFT KNEE 3 views of the left knee were obtained. Long stem knee prosthesis is present. The proximal end of the femur and distal end of the tibial are not included. There is an old healed fracture deformity of the anterior cortex of the distal femur. There is no acute fracture or dislocation. Visualized joint spaces are normally aligned. There is 2 cm of soft tissue edema anterior to the patella. IMPRESSION: Soft tissue edema anterior to the patella. Intact appearing hardware without acute fracture identified. Reviewed, Interpreted and Dictated by Huber Evans MD Transcribed by Maegan Regalado Authenticated and [facility]
== END 2023-09-15 23:59 ==
PROVIDERS: PCP Internal Medicine; Visit Provider Orthopaedic Surgery
DX: M25.562 Pain in left knee (principal)
CPT/HCPCS: 73562

== ENCOUNTER 2023-10-04 14:26 | Inpatient (IN) | payer MEDICARE, MEDICAID, SELFPAY ==
[2023-10-04] VITALS (8 sets, daily range): BP systolic 91–127; BP diastolic 48–87; PULSE 75–92; RESP 12–22; TEMP 36.7–36.8; O2SAT 93–96; BMI 36.8
--- NOTE | 2023-10-04 14:32 | ECG_ITS ---
APPROVED REPORT Exam: Resting ECG HR:90 bpm ECG Measurements Heart Rate 90 AXES NE 211 P 51 QRSd 135 QRS 144 QT 391 T 55 QTc 438 Conclusion SINUS RHYTHM WITH FIRST DEGREE AV BLOCK RIGHT BUNDLE BRANCH BLOCK [120+ ms QRS DURATION, UPRIGHT V1, 40+ ms S IN I/aVL/V4/V5/V6] LEFT POSTERIOR FASCICULAR BLOCK [QRS AXIS > 109, INFERIOR Q] POSSIBLE ANTERIOR MYOCARDIAL INFARCTION , PROBABLY OLD [30 ms Q WAVE IN V3/V4, OR R < 0.2 mV IN V4] ABNORMAL ECG UNCONFIRMED REPORT Electronically signed by : Vignesh Fernandez MD 10/04/2023 21:53:34
--- NOTE | 2023-10-04 14:54 | XR_ITS ---
FINAL REPORT CLINICAL HISTORY: soa COMPARISON: 07/29/2022 FINDINGS: SINGLE-VIEW CHEST The heart size is normal. The mediastinum is normal. There is improved pulmonary vascular congestion and pulmonary opacities. Postoperative changes are seen in the right shoulder. There is no pneumothorax. IMPRESSION: Improved appearance of the chest. Reviewed, Interpreted and Dictated by Arie Orozco III, MD Transcribed by Anel Cooley Authenticated and [facility]
[2023-10-04 15:01] LABS: Basophils % 0.1 % (0.1-2.0); Eosinophils # 0.4 K/mm3 (0.0-0.4); Eosinophils % 2.9 % (0.1-12.0); Hematocrit 34.1 % (37.0-47.0); Hemoglobin 11.1 g/dL (12.2-16.2); Lymphocytes % 7.6 % (10-50); Mean Corpuscular HGB Conc 32.5 g/dL (31.8-35.4); Mean Corpuscular Hemoglobin 28.2 pg (27.0-31.2); Mean Corpuscular Volume 86.8 fl (81-99); Mean Platelet Volume 9.4 fl (7.4-10.4); Monocytes # 0.5 K/mm3 (0.1-1.0); Monocytes % 3.3 % (1.7-9.3); Neutrophils # 11.9 K/mm3 (1.8-7.8); Neutrophils % 86.1 % (37.0-80.0); Platelet Count 324 K/mm3 (142-424); Red Blood Count 3.93 M/mm3 (4.20-5.40); Red Cell Distribution Width 14.5 % (11.5-17.5); White Blood Count 13.8 K/mm3 (4.8-10.8)
[2023-10-04 15:03] LABS: Chloride 100 mmol/L (98-107); Sodium 136 mmol/L (136-145)
[2023-10-04 15:05] LABS: Alanine Aminotransferase 30 U/L (12-78); Aspartate Amino Transferase 39 U/L (14-36); Blood Urea Nitrogen 60 mg/dl (7-17); Creatinine Clearance Estimated 20 mL/min (50-200); Estimated Glomerular Filt Rate 10 ml/min (>60); GFR (African American) 13 ML/MIN (>60)
[2023-10-04 15:06] LABS: Albumin Level 3.8 g/dl (3.5-5.0); Albumin/Globulin Ratio 1.1 (1.1-1.8); Alkaline Phosphatase 97 U/L (38-126); Bilirubin,Total 0.4 mg/dl (0.2-1.3); Calcium 8.9 mg/dl (8.4-10.2); Carbon Dioxide 29 mmol/L (22.0-30.0); Globulin 3.4 g/dL (1.3-3.2); Glucose 229 mg/dl (74-100); Total Protein,Serum 7.2 g/dl (6.3-8.2)
[2023-10-04 15:14] LABS: MANUAL DIFFERENTIAL MANUAL DIFFERENTIAL (MANUAL DIFF)
[2023-10-04 15:23] LABS: Troponin I < 0.01 ng/ml (0.00-0.034)
--- NOTE | 2023-10-04 15:23 | [facility].EDCP ---
Discharge Plan Disposition Patient Disposition: Xfer Other Prescriptions Prescriptions: No Action acetaminophen 500 mg tablet 500 mg PO Q6HP PRN (Reason: Mild Pain (Scale Score 1-4)) anastrozole 1 mg tablet 1 mg PO DAILY atorvastatin 40 mg tablet 40 mg PO HS carvedilol 12.5 mg tablet 12.5 mg PO BID Xarelto 15 mg tablet 15 mg PO QPMWITHMEAL loperamide 2 mg capsule 2 mg PO Q4HP PRN (Reason: Diarrhea) pantoprazole [Protonix] 20 mg tablet,delayed release (DR/EC) 20 mg PO DAILY baclofen 10 mg tablet 10 mg PO TID spironolactone 50 mg tablet 50 mg PO DAILY venlafaxine 75 mg capsule,extended release 24hr 75 mg PO DAILY cholecalciferol (vitamin D3) 25 mcg (1,000 unit) tablet 25 mcg PO BID venlafaxine 150 mg capsule,extended release 24hr 150 mg PO DAILY azelastine 137 mcg (0.1 %) aerosol,spray 2 spray intranasal BID Qty: 30 3RF Rx Instructions: administer into each nostril azithromycin 250 mg tablet See Rx Instructions PO .COMPLEX Qty: 6 0RF Rx Instructions: For 250 mg dose pack: take 500 mg today (day 1), then 250 mg for 4 days (days 2-5) PO pregabalin 50 mg capsule 50 mg PO TID Qty: 90 5RF Acid Gone Antacid 95-358 mg/15 mL suspension 30 ml PO QID PRN (Reason: heart burn) insulin glargine [Basaglar KwikPen U-100 Insulin] 100 unit/mL (3 mL) insulin pen 30 unit SQ HS calcium carbonate 600 mg calcium (1,500 mg) tablet 600 mg PO BID doxycycline monohydrate 100 mg tablet 100 mg PO BID dextromethorphan-guaifenesin 30-600 mg tablet extended release 12 hr 1 tab PO Q12H valsartan 80 mg tablet 80 mg PO BID ascorbic acid (vitamin C) [Vitamin C] 500 mg tablet 500 mg PO DAILY mecobalamin (vitamin B12) 1,000 mcg tablet,chewable 1,000 mcg PO DAILY fentanyl 12 mcg/hr patch 72 hour 1 patch transdermal Q72H Qty: 10 0RF paroxetine HCl [Paxil] 10 mg tablet 10 mg PO DAILY Qty: 90 3RF oxycodone-acetaminophen 5-325 mg tablet 1 tab PO TID PRN (Reason: pain) Qty: 90 0RF clopidogrel 75 MG tablet 75 mg PO DAILY sennosides 8.6 MG tablet 17.2 mg PO HSP PRN (Reason: Constipation) multivitamin with minerals 1 EACH tablet 1 each PO DAILY glipizide 2.5 mg tablet extended release 24hr 2.5 mg PO DAILY ferrous sulfate [iron] 325 mg (65 mg iron) Tablet 325 mg PO DAILY ipratropium-albuterol 0.5 mg-3 mg(2.5 mg base)/3 mL Solution For Nebulization 3 ml INHALATION Q6HP PRN (Reason: Shortness Of Breath) ondansetron 4 mg Tablet,Disintegrating 4 mg PO Q6HP PRN (Reason: Nausea And Vomiting) trazodone 150 mg tablet 300 mg PO HS metformin 1,000 mg tablet 1,000 mg PO BID Hold Instructions: Resume on 08/30/22. magnesium oxide 400 mg (241.3 mg magnesium) tablet 400 mg PO BID fluticasone furoate-vilanterol [Breo Ellipta] 100-25 mcg/dose blister with device 1 inh inhalation DAILY Jardiance 10 mg tablet 10 mg PO DAILY bumetanide 2 mg tablet 2 mg PO BID Referrals Follow up/Referrals: Provider,Referral, [Referring] - See instructions Clinical Impressions Clinical Impression: GEOVANNI (acute kidney injury), Anuria, Dyspnea, UTI (urinary tract infection), Hyperkalemia Discharge ED Provider: Sabino Correia HPI General Chief Complaint: Shortness of Breath/Dyspnea Stated Complaint: soa Time Seen by Provider: 10/04/23 15:14 Mode of Arrival: EMS Source of Information: Patient, EMS and Medical Record Limitations: No Limitations Description of Symptoms (Recalled from ER Triage Doc. by RN): Pt is here today for SOA and is requiring O2 to maintain sat above 90% which is a new development for her, pt is also hypotensive however ALOx3 and responds appropriately upon triage History of Present Illness HPI narrative: Is a 63-year-old female with a history of a CVA she has been in a residential and has had left-sided weakness since 2013. Presents to the emergency department with dyspnea. Team was rounding on her at the residential and found her to be in acute renal failure and sent her to the emergency department. Patient denies any cough or fevers. States she is recently had significant dysuria and is being treated for urinary tract infection. States she has not had any urine output since yesterday. Related Data Home Medications Medication Instructions Recorded Confirmed acetaminophen 500 mg tablet 500 mg PO Q6HP PRN Mild Pain 02/28/18 09/15/23 (Scale Score 1-4) anastrozole 1 mg tablet 1 mg PO DAILY breast cancer 02/28/18 09/15/23 atorvastatin 40 mg tablet 40 mg PO HS Cholesterol 02/28/18 09/15/23 carvedilol 12.5 mg tablet 12.5 mg PO BID Hypertension 02/28/18 09/15/23 loperamide 2 mg capsule 2 mg PO Q4HP PRN Diarrhea 07/11/18 09/15/23 baclofen 10 mg tablet 10 mg PO TID muscle spasms 04/11/19 09/15/23 pantoprazole 20 mg tablet,delayed 20 mg PO DAILY GERD 04/11/19 09/15/23 release (Protonix) clopidogrel 75 mg tablet 75 mg PO DAILY 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 02/04/20 09/15/23 rivaroxaban 15 mg tablet (Xarelto) 15 mg PO QPMWITHMEAL Blood thinner 03/13/21 09/15/23 HX DVT multivitamin with minerals 1 each PO DAILY Supplement 05/06/21 09/15/23 sennosides 8.6 mg tablet 17.2 mg PO HSP PRN Constipation 05/06/21 09/15/23 ferrous sulfate 325 mg (65 mg 325 mg PO DAILY Supplement 07/28/22 09/15/23 iron) tablet (iron) glipizide 2.5 mg tablet, extended 2.5 mg PO DAILY Diabetes 07/28/22 09/15/23 release 24 hr ipratropium 0.5 mg-albuterol 3 mg 3 ml inhalation Q6HP PRN Shortness 07/28/22 09/15/23 (2.5 mg base)/3 mL nebulization Of Breath soln metformin 1,000 mg tablet 1,000 mg PO BID Diabetes 07/28/22 09/15/23 ondansetron 4 mg disintegrating 4 mg PO Q6HP PRN Nausea And 07/28/22 09/15/23 tablet Vomiting trazodone 150 mg tablet 300 mg PO HS SLEEP 07/28/22 09/15/23 empagliflozin 10 mg tablet 10 mg PO DAILY . 08/27/22 09/15/23 (Jardiance) fluticasone furoate 100 1 inh inhalation DAILY allergies 08/27/22 09/15/23 mcg-vilanterol 25 mcg/dose inhalation powder (Breo Ellipta) magnesium oxide 400 mg (241.3 mg 400 mg PO BID Supplement 08/27/22 09/15/23 magnesium) tablet spironolactone 50 mg tablet 50 mg PO DAILY blood pressure 09/09/22 09/15/23 bumetanide 2 mg tablet 2 mg PO BID Fluid 11/24/22 09/15/23 aluminum hydrox-magnesium carb 95 30 ml PO QID PRN heart burn 08/01/23 09/15/23 mg-358 mg/15 mL oral suspension (Acid Gone Antacid) calcium carbonate 600 mg calcium 600 mg PO BID 08/01/23 09/15/23 (1,500 mg) tablet dextromethorphan-guaifenesin 30 1 tab PO Q12H 08/01/23 09/15/23 mg-600 mg tablet extended [id number] hr doxycycline monohydrate 100 mg 100 mg PO BID preventative 08/01/23 09/15/23 tablet insulin glargine 100 unit/mL (3 30 unit SQ HS Diabetes 08/01/23 09/15/23 mL) subcutaneous pen (Basaglar KwikPen U-100 Insulin) valsartan 80 mg tablet 80 mg PO BID htn 08/01/23 09/15/23 ascorbic acid (vitamin C) 500 mg 500 mg PO DAILY Supplement 08/18/23 09/15/23 tablet (Vitamin C) mecobalamin (vitamin B12) 1,000 1,000 mcg PO DAILY 08/18/23 09/15/23 mcg chewable tablet cholecalciferol (vitamin D3) 25 25 mcg PO BID 09/13/23 09/15/23 mcg (1,000 unit) tablet venlafaxine 150 mg 150 mg PO DAILY 09/13/23 09/15/23 capsule,extended release 24 hr venlafaxine 75 mg capsule,extended 75 mg PO DAILY 09/13/23 09/15/23 release 24 hr Previous Rx's Medication Instructions Recorded pregabalin 50 mg capsule 50 mg PO TID nerve pain #90 caps 07/05/23 fentanyl 12 mcg/hr transdermal 1 patch transdermal Q72H #10 09/10/23 patch patches azelastine 137 mcg (0.1 %) nasal 2 spray intranasal BID allergy 09/13/23 spray aerosol symptoms #30 mL azithromycin 250 mg tablet See Rx Instructions PO .COMPLEX #6 09/13/23 tabs oxycodone-acetaminophen 5 mg-325 1 tab PO TID PRN pain #90 tabs 09/20/23 mg tablet paroxetine HCl 10 mg tablet (Paxil) 10 mg PO DAILY VMS #90 tabs 09/25/23 Allergies Allergy/AdvReac Type Severity Reaction Status Date / Time bupropion [From WELLBUTRIN] Allergy Unknown Verified 09/15/23 13:16 hydrocodone [From LORTAB] Allergy Unknown Verified 09/15/23 13:16 Sulfa (Sulfonamide Allergy Unknown Verified 09/15/23 13:16 Antibiotics) [SULFA (SULFONAMIDE ANTIBIOTICS)] tramadol [From ULTRAM] Allergy Unknown Verified 09/15/23 13:16 SURGICAL TAPE Allergy Unknown Uncoded 09/15/23 13:16 [facility] Disclaimer: The information contained in this section may have been updated after the patient was seen, as this information can be updated by other users. 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 Denies recent onset of TIA/stroke like symptoms. Functional decline x last 6 months, wheelchair bound due to severe left knee pain, swelling. Diabetes mellitus Dysfunction of right eustachian tube Dyspnea on exertion Edema Essential (primary) hypertension Fibromyalgia, primary Foot pain Gastro-esophageal reflux disease without esophagitis Heart failure, unspecified Hemiplegia and hemiparesis following cerebral infarction affecting left dominant side History of breast cancer History of smoking 30 or more pack years Hypertension Hypertensive heart disease without heart failure Insomnia with sleep apnea, unspecified Iron deficiency anemia secondary to blood loss (chronic) Left leg swelling half-way (current) use of oral hypoglycemic drugs Major depressive disorder, recurrent, unspecified Mediastinal lymphadenopathy Need for assistance at home and no other household member able to render care Obstructive sleep apnea (adult) (pediatric) Other idiopathic peripheral autonomic neuropathy Other specified disorders of bone density and structure, left shoulder Otogenic otalgia of left ear Otogenic otalgia of right ear Polyosteoarthritis, unspecified PVC (premature ventricular contraction) Restrictive lung disease SOB (shortness of breath) on exertion Stopped smoking with greater than 30 pack year history Tobacco abuse Trochanteric bursitis, right hip Unilateral primary osteoarthritis, right hip Unspecified diastolic (congestive) heart failure Unspecified sequelae of unspecified cerebrovascular disease Surgical History History of CEA (carotid endarterectomy) History of right mastectomy History of total left knee replacement Family History Other Black lung disease Diabetes Hypertension Social History Smoking Status: Former smoker tobacco type: cigarettes packs per day: 1 smoking status stop date: 06/2022 alcohol intake: never substance use type: denies use current occupational status: disabled Travel in the last 8 weeks: None household members: other housing: residential caffeine: Yes ROS Obtained: Yes All systems reviewed & no additional complaints except as documented Physical Exam General General appearance: alert Respiratory Respiratory exam: Present normal lung sounds bilaterally; Absent respiratory distress Cardiovascular Cardiovascular exam: Present regular rate and normal rhythm Neurological Exam Neurological exam: Present alert HEART Score HEART Score HEART Score assessment performed?: Yes History (anamnesis): Slightly suspicious ECG: Normal Age: 45-65 years Risk factors: Atherosclerosis history Troponin: </= normal limit HEART Score: 3 Procedures Miscellaneous Procedure Procedure Performed: Limited cardiac ultrasound Indication: Dyspnea Identified structures: The heart was visualized in the parasternal long axis, parastenal short axis, apical four chamber and subxyphiod views. The IVC was visualized in the short axis and long axis at its entry into the right atrium. Findings: Normal LVEF no severe right heart strain no pericardial effusion Impression: Unremarkable limited bedside cardiac ultrasound Images were saved to permanent archive The study was technically adequate CPT: 69507-36 This study was performed by me, and I personally interpreted all images/videos. Based on my clinical judgement, these images were adequate and did not necessitate further imaging. Critical Care Critical Care Time Critical Care Time: Yes Attestation: On 10/04/23, the high probability of a clinically significant, sudden or life threatening deterioration of the following system(s) required my full and direct attention, intervention and personal management. The time I documented below is in addition to time spent performing reported procedures but includes the following listed in this critical care notation. Total Time Total Critical Care Time: 35 Medical Decision Making Medical Records Medical records reviewed: Yes I reviewed the patient's medical records. Jordi Inquiry Pt receiving controlled substance: No Vital Signs Vital Signs: 10/04/23 14:27 Temperature 98.2 F Temperature Source Oral Pulse Rate [Right Radial] 92 H Respiratory Rate 22 Blood Pressure [Right Arm] 91/48 L Blood Pressure Mean [Right Arm] 62 02 Sat by Pulse Oximetry 95 Oxygen Delivery Method Nasal Cannula Oxygen Flow Rate (LPM) 3 Lab Data Lab results reviewed: Yes I reviewed the patient's lab results. Labs: Lab Results 10/04/23 14:28: WBC 13.8 H, RBC 3.93 L, Hgb 11.1 L, Hct 34.1 L, MCV 86.8, MCH 28.2, MCHC 32.5, RDW 14.5, Plt Count 324, MPV 9.4, Neut % (Auto) 86.1 H, Lymph % (Auto) 7.6 L, [place] % (Auto) 3.3, Eos % (Auto) 2.9, Baso % (Auto) 0.1, Neut # (Auto) 11.9 H, Lymph # (Auto) 1.0, [place] # (Auto) 0.5, Eos # (Auto) 0.4, Baso # (Auto) 0.0, Total Counted 100, Neutrophils % (Manual) 87 H, Lymphocytes % (Manual) 11, Monocytes % (Manual) 2, Platelet Estimate Normal, Hypochromasia 2+, Sodium 136, Potassium 6.0 H, Chloride 100, Carbon Dioxide 29, Anion Gap 13.0, BUN 60 H, Creatinine 4.30 H, Estimated Creat Clear 20, Estimated GFR 10 L*, Est GFR ( Amer) 13 L*, Glucose 229 H, Calcium 8.9, Total Bilirubin 0.4, AST 39 H, ALT 30, Alkaline Phosphatase 97, Troponin I < 0.01, NT-Pro-B Natriuret Pep 432 H, Total Protein 7.2, Albumin 3.8, Globulin 3.4 H, Albumin/Globulin Ratio 1.1 10/04/23 16:11: Urine Color Yellow, Urine Appearance Cloudy, Urine pH 6.0, Ur Specific [place] 1.010, Urine Protein Trace, Urine Glucose (UA) 2+, Urine Ketones Negative, Urine Blood Trace-l, Urine Nitrate Negative, Urine Bilirubin Negative, Urine Urobilinogen 0.2, Ur Leukocyte Esterase 2+ A, Urine RBC 5-10, Urine WBC Tntc, Ur Squamous Epith Cells None, Urine Bacteria None 10/04/23 14:28 10/04/23 14:28 Response Orders (Tests/Meds): ED MEDICATIONS Discontinued Medications Generic Name Dose Route Start Last Admin Trade Name Freq PRN Reason Stop Dose Admin Dextrose 50 ml 10/04/23 15:57 Dextrose 50% 50ml Syringe (Crash Cart) IVP 10/04/23 15:58 ONCE ONE Calcium Gluconate/Sodium Chloride 1 gm in 50 mls @ 50 mls/hr 10/04/23 15:58 Calcium Gluconate 1,000mg/50ml Nacl Premix IV 10/04/23 16:57 ONCE ONE Ceftriaxone Sodium 1 gm/ 50 mls @ 100 mls/hr 10/04/23 16:39 Sodium Chloride IV 10/04/23 17:08 ONCE ONE Insulin Human Regular 10 unit 10/04/23 15:57 Insulin Human Regular 100 Units/Ml 10ml Vial IVP 10/04/23 15:58 ONCE ONE Sodium Zirconium Cyclosilicate 10 gm 10/04/23 15:57 Lokelma 5gm Packet PO 10/04/23 15:58 ONCE ONE ORDERS Category Date Time Status CXR --portable [XR chest portable] Stat Exams 10/04/23 14:54 Completed POCUS Point of Care (ER Only) Stat Exams 10/04/23 15:15 Completed BNP [Brain Natriuretic Peptide] Stat Lab 10/04/23 14:28 Completed Complete Blood Count Auto Diff Stat Lab 10/04/23 14:28 Completed Comprehensive Metabolic Panel Stat Lab 10/04/23 14:28 Completed Troponin I Q3H Lab 10/04/23 18:00 Ordered Troponin I Q3H Lab 10/04/23 21:00 Ordered Troponin I Stat Lab 10/04/23 14:28 Completed UA [Urinalysis and Microscopic] Stat Lab 10/04/23 16:11 Completed Urine Culture Stat Micro 10/04/23 16:11 Received ECG initial Besson Routine Y 10/04/23 14:32 Completed ECG Data Tracing #1: Attestation: I reviewed this ECG and interpreted as documented below: ECG Narrative: Ventricular rate of 90 first-degree AV block with NE interval of 211 there is low voltage QRS there is a left posterior fascicular block no acute ST segment elevations or depressions MDM Narrative Medical Decision Narrative: Patient is a 63-year-old female present today with dyspnea. Differential includes pneumonia pulmonary embolism heart failure pericardial effusion etc. Basic blood work initiated which shows acute kidney failure with a creatinine of 4.3. Also has some hyperkalemia. As there are some abnormalities on the EKG particularly a QRS that is wider than 120 will initiate some hyperkalemic treatment. Patient is an uric we will place a Parekh catheter she has symptoms of urinary tract infection with a low threshold to treat with IV antibiotics. She will likely need to be transferred to a location where there is nephrology coverage. I will also do a bedside ultrasound to make sure she does not have a pericardial effusion given the renal failure and the dyspnea and cardiomegaly noted on chest x-ray as well as low voltage QRS on EKG. Chest x-ray was performed to person interpreted which shows cardiomegaly but no focal parenchymal lung disease. Reassessment patient has hyperkalemia EKG is not completely normal particular the QRS and went ahead and treated this. She was given calcium insulin dextrose and Lokelma. I discussed the case with Dr. Romeo Cheng who advised that we transfer the patient where there is nephrology coverage in the event that she worsens which I do not disagree with. I spoke to the patient she requested to be transferred to [facility] I subsequently spoke to Dr. Mohan who agreed to except the patient for further evaluation and treatment. No alternative explanation for her dyspnea at this point other than renal insufficiency. On bedside ultrasound there is no evidence of moderate or severely depressed EF and no pericardial effusion also no pulmonary edema or pleural effusions noted. I do not suspect a pulmonary embolism however that remains in the differential but cannot get a CT PE and will not work this up further at the moment.
[2023-10-04 15:47] LABS: Lymphocytes % 11 % (10-50); Monocytes % 2 % (2-9); Neutrophils % 87 % (42-76); Total Cells Counted 100
[2023-10-04 15:48] LABS: Hypochromasia 2+; Platelet Estimate Normal
[2023-10-04 15:50] LABS: NT Pro Brain Natriuretic Pep. 432 pg/mL (0-125)
[2023-10-04 16:23] LABS: Microscopic, Urine URINE MICROSCOPIC (MICROSCOPIC)
[2023-10-04 16:26] LABS: Appearance,Urine CLOUDY (Clear); Bilirubin,Urine Negative (Negative); Blood, Urine TRACE-L (Negative); Color,Urine YELLOW (Yellow); Glucose,Urine (UA) 2+ (Negative); Ketones,Urine Negative (Negative); Leukocyte Esterase,Urine 2+ (Negative); Nitrate,Urine Negative (Negative); Protein,Urine TRACE (Negative); Urobilinogen,Urine 0.2 EU/dl (0.2)
--- NOTE | 2023-10-04 16:44 | PC.NURSE ---
call [facility] for transfer
[2023-10-04 16:52] LABS: WBC,Urine TNTC #/hpf (0-3)
--- NOTE | 2023-10-04 17:23 | PC.NURSE ---
SPEAKING WITH AT [facility]
--- NOTE | 2023-10-04 17:24 | PC.NURSE ---
ACCEPTED PT AT [facility]
[2023-10-04] MEDS: DEXTROSE 50% 50ML SYRINGE (CRASH CART) 50 ML IVP (17:50)
[2023-10-04] MEDS: CEFTRIAXONE SODIUM 1 GM in 0.9 % SODIUM CHLORIDE 50 ML IV (17:50)
[2023-10-04] MEDS: INSULIN HUMAN REGULAR 100 UNITS/ML 10ML VIAL 10 UNIT IVP (17:51)
[2023-10-04] MEDS: LOKELMA 5GM PACKET 10 GM PO (17:51)
--- NOTE | 2023-10-04 18:24 | PC.NURSE ---
PT SLEEPING IN BED LIGHTS OFF NO NEEDS AT THIS TIME,CALL LIGHT AT BS
[2023-10-04 19:04] LABS: Troponin I < 0.01 ng/ml (0.00-0.034)
[2023-10-04] MEDS: CALCIUM GLUC IN NACL, ISO-OSM 1 GM/50 ML BAG IV (19:54)
--- NOTE | 2023-10-04 21:06 | PC.NURSE ---
Spoke with [place] at [facility], updated on pt status. Told the original bed for her was given to an ED pt at their facility but they would continue to try to place her.
--- NOTE | 2023-10-04 22:03 | PC.NURSE ---
o/p with hospitalist at this time.
--- NOTE | 2023-10-04 22:18 | EXP.HP ---
History of Present Illness *Admission Date: 10/04/23 [facility] Disclaimer: The information contained in this section may have been updated after the patient was seen, as this information can be updated by other users. 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 Denies recent onset of TIA/stroke like symptoms. Functional decline x last 6 months, wheelchair bound due to severe left knee pain, swelling. 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) use of oral hypoglycemic drugs Major depressive disorder, recurrent, unspecified Mediastinal lymphadenopathy Need for assistance at home and no other household member able to render care Obstructive sleep apnea (adult) (pediatric) Other idiopathic peripheral autonomic neuropathy Other specified disorders of bone density and structure, left shoulder Otogenic otalgia of left ear Otogenic otalgia of right ear Polyosteoarthritis, unspecified PVC (premature ventricular contraction) Restrictive lung disease SOB (shortness of breath) on exertion Stopped smoking with greater than 30 pack year history Tobacco abuse Trochanteric bursitis, right hip Unilateral primary osteoarthritis, right hip Unspecified diastolic (congestive) heart failure Unspecified sequelae of unspecified cerebrovascular disease Surgical History History of CEA (carotid endarterectomy) History of right mastectomy History of total left knee replacement Family History Other Black lung disease Diabetes Hypertension Social History (Reviewed 09/15/23 @ 13:15 by ERIBERTO Tapia Smoking Status: Former smoker tobacco type: cigarettes packs per day: 1 smoking status stop date: 06/2022 alcohol intake: never substance use type: denies use current occupational status: disabled Travel in the last 8 weeks: None household members: other housing: long-term caffeine: Yes Meds Home Medications and Allergies Home Medications Medication Instructions Recorded Confirmed Type acetaminophen 500 mg tablet 500 mg PO Q6HP PRN Mild Pain 02/28/18 09/15/23 History (Scale Score 1-4) anastrozole 1 mg tablet 1 mg PO DAILY breast cancer 02/28/18 09/15/23 History atorvastatin 40 mg tablet 40 mg PO HS Cholesterol 02/28/18 09/15/23 History carvedilol 12.5 mg tablet 12.5 mg PO BID Hypertension 02/28/18 09/15/23 History loperamide 2 mg capsule 2 mg PO Q4HP PRN Diarrhea 07/11/18 09/15/23 History baclofen 10 mg tablet 10 mg PO TID muscle spasms 04/11/19 09/15/23 History pantoprazole 20 mg tablet,delayed 20 mg PO DAILY GERD 04/11/19 09/15/23 History release (Protonix) clopidogrel 75 mg tablet 75 mg PO DAILY 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 02/04/20 09/15/23 History rivaroxaban 15 mg tablet (Xarelto) 15 mg PO QPMWITHMEAL Blood thinner 03/13/21 09/15/23 History HX DVT multivitamin with minerals 1 each PO DAILY Supplement 05/06/21 09/15/23 History sennosides 8.6 mg tablet 17.2 mg PO HSP PRN Constipation 05/06/21 09/15/23 History ferrous sulfate 325 mg (65 mg 325 mg PO DAILY Supplement 07/28/22 09/15/23 History iron) tablet (iron) glipizide 2.5 mg tablet, extended 2.5 mg PO DAILY Diabetes 07/28/22 09/15/23 History release 24 hr ipratropium 0.5 mg-albuterol 3 mg 3 ml inhalation Q6HP PRN Shortness 07/28/22 09/15/23 History (2.5 mg base)/3 mL nebulization Of Breath soln metformin 1,000 mg tablet 1,000 mg PO BID Diabetes 07/28/22 09/15/23 History ondansetron 4 mg disintegrating 4 mg PO Q6HP PRN Nausea And 07/28/22 09/15/23 History tablet Vomiting trazodone 150 mg tablet 300 mg PO HS SLEEP 07/28/22 09/15/23 History empagliflozin 10 mg tablet 10 mg PO DAILY . 08/27/22 09/15/23 History (Jardiance) fluticasone furoate 100 1 inh inhalation DAILY allergies 08/27/22 09/15/23 History mcg-vilanterol 25 mcg/dose inhalation powder (Breo Ellipta) magnesium oxide 400 mg (241.3 mg 400 mg PO BID Supplement 08/27/22 09/15/23 History magnesium) tablet spironolactone 50 mg tablet 50 mg PO DAILY blood pressure 09/09/22 09/15/23 History bumetanide 2 mg tablet 2 mg PO BID Fluid 11/24/22 09/15/23 History pregabalin 50 mg capsule 50 mg PO TID nerve pain #90 caps 07/05/23 09/15/23 Rx aluminum hydrox-magnesium carb 95 30 ml PO QID PRN heart burn 08/01/23 09/15/23 History mg-358 mg/15 mL oral suspension (Acid Gone Antacid) calcium carbonate 600 mg calcium 600 mg PO BID 08/01/23 09/15/23 History (1,500 mg) tablet dextromethorphan-guaifenesin 30 1 tab PO Q12H 08/01/23 09/15/23 History mg-600 mg tablet extended [id number] hr doxycycline monohydrate 100 mg 100 mg PO BID preventative 08/01/23 09/15/23 History tablet insulin glargine 100 unit/mL (3 30 unit SQ HS Diabetes 08/01/23 09/15/23 History mL) subcutaneous pen (Basaglar KwikPen U-100 Insulin) valsartan 80 mg tablet 80 mg PO BID htn 08/01/23 09/15/23 History ascorbic acid (vitamin C) 500 mg 500 mg PO DAILY Supplement 08/18/23 09/15/23 History tablet (Vitamin C) mecobalamin (vitamin B12) 1,000 1,000 mcg PO DAILY 08/18/23 09/15/23 History mcg chewable tablet fentanyl 12 mcg/hr transdermal 1 patch transdermal Q72H #10 09/10/23 09/15/23 Rx patch patches azelastine 137 mcg (0.1 %) nasal 2 spray intranasal BID allergy 09/13/23 09/15/23 Rx spray aerosol symptoms #30 mL azithromycin 250 mg tablet See Rx Instructions PO .COMPLEX #6 09/13/23 09/15/23 Rx tabs cholecalciferol (vitamin D3) 25 25 mcg PO BID 09/13/23 09/15/23 History mcg (1,000 unit) tablet venlafaxine 150 mg 150 mg PO DAILY 09/13/23 09/15/23 History capsule,extended release 24 hr venlafaxine 75 mg capsule,extended 75 mg PO DAILY 09/13/23 09/15/23 History release 24 hr oxycodone-acetaminophen 5 mg-325 1 tab PO TID PRN pain #90 tabs 09/20/23 Rx mg tablet paroxetine HCl 10 mg tablet (Paxil) 10 mg PO DAILY VMS #90 tabs 09/25/23 Rx New Prescriptions to Start Prescriptions: Allergies Allergy/AdvReac Type Severity Reaction Status Date / Time bupropion [From WELLBUTRIN] Allergy Unknown Verified 09/15/23 13:16 hydrocodone [From LORTAB] Allergy Unknown Verified 09/15/23 13:16 Sulfa (Sulfonamide Allergy Unknown Verified 09/15/23 13:16 Antibiotics) [SULFA (SULFONAMIDE ANTIBIOTICS)] tramadol [From ULTRAM] Allergy Unknown Verified 09/15/23 13:16 SURGICAL TAPE Allergy Unknown Uncoded 09/15/23 13:16 Exam Data for Last 24 hours Vital signs and Labs for Last 24 Hours: Temp Pulse Resp BP Pulse Ox O2 Del Method O2 Flow Rate 98.1 F 84 13 120/70 95 Nasal Cannula 3 10/04/23 20:44 10/04/23 21:00 10/04/23 21:00 10/04/23 21:00 10/04/23 21:00 10/04/23 20:44 10/04/23 20:44 Laboratory Results - last 24 hr 10/04/23 14:28: WBC 13.8 H, RBC 3.93 L, Hgb 11.1 L, Hct 34.1 L, MCV 86.8, MCH 28.2, MCHC 32.5, RDW 14.5, Plt Count 324, MPV 9.4, Neut % (Auto) 86.1 H, Lymph % (Auto) 7.6 L, [place] % (Auto) 3.3, Eos % (Auto) 2.9, Baso % (Auto) 0.1, Neut # (Auto) 11.9 H, Lymph # (Auto) 1.0, [place] # (Auto) 0.5, Eos # (Auto) 0.4, Baso # (Auto) 0.0, Total Counted 100, Neutrophils % (Manual) 87 H, Lymphocytes % (Manual) 11, Monocytes % (Manual) 2, Platelet Estimate Normal, Hypochromasia 2+, Sodium 136, Potassium 6.0 H, Chloride 100, Carbon Dioxide 29, Anion Gap 13.0, BUN 60 H, Creatinine 4.30 H, Estimated Creat Clear 20, Estimated GFR 10 L*, Est GFR ( Amer) 13 L*, Glucose 229 H, Calcium 8.9, Total Bilirubin 0.4, AST 39 H, ALT 30, Alkaline Phosphatase 97, Troponin I < 0.01, NT-Pro-B Natriuret Pep 432 H, Total Protein 7.2, Albumin 3.8, Globulin 3.4 H, Albumin/Globulin Ratio 1.1 10/04/23 16:11: Urine Color Yellow, Urine Appearance Cloudy, Urine pH 6.0, Ur Specific [place] 1.010, Urine Protein Trace, Urine Glucose (UA) 2+, Urine Ketones Negative, Urine Blood Trace-l, Urine Nitrate Negative, Urine Bilirubin Negative, Urine Urobilinogen 0.2, Ur Leukocyte Esterase 2+ A, Urine RBC 5-10, Urine WBC Tntc, Ur Squamous Epith Cells None, Urine Bacteria None 10/04/23 17:59: Troponin I < 0.01 I & O for Last 24 hours: Intake & Output 10/01/23 10/02/23 10/03/23 10/04/23 23:59 23:59 23:59 23:59 Weight 97.522 kg
[2023-10-04 22:19] LABS: Troponin I < 0.01 ng/ml (0.00-0.034)
--- NOTE | 2023-10-04 22:21 | PC.NURSE ---
rounded on patient, patient resting at this time.
--- NOTE | 2023-10-04 22:42 | PC.NURSE ---
report called to [facility][id number]
--- NOTE | 2023-10-04 23:04 | PC.NURSE ---
pt arrived to floor via stretcher @23:04
--- NOTE | 2023-10-04 23:38 | PC.NURSE ---
Pt arrived to floor on 3 L nc and garcía in place. Urine yellow and cloudy with sediment. Pt is a/o to person only. Pt states she was able to ambulate with a walker 1 week ago and has not been able to get OOB at all this week due to weakness and pain in left knee. Pt has wound to left knee with serous drainage. SEE NURSE WOUND NOTE. Wound was cleaned and new dressing applied. Pt also has redness/excoriation under folds and in debbie area. Pt was cleaned and powder applied.
[2023-10-05] VITALS: BP 122/59; PULSE 82; PULSE 88; RESP 19; TEMP 36.6; O2SAT 92
[2023-10-05] MEDS: 0.9 % SODIUM CHLORIDE 1000ML 1,000 ML 50 ML IV (00:18)
[2023-10-05 00:49] VITALS: O2SAT 93
--- NOTE | 2023-10-05 01:16 | PC.NURSE ---
Spoke with the tx center at [facility]. Pt is to be tx to bed in ED at [facility]
--- NOTE | 2023-10-05 01:20 | PC.NURSE ---
Report given to Allyn KRAUSE at [facility] ED at this time. Pt updated on plan.
--- NOTE | 2023-10-05 01:38 | PC.NURSE ---
EMS notified of need for tx
--- NOTE | 2023-10-05 02:08 | P.HPDS_ITS ---
Attending attestation Patient was seen and evaluated at the bedside myself, agree with WAYLON note. General Admission date:: 10/04/23 Discharge date: 10/05/23 *Admission Date: 10/04/23 *Chief complaint: SOB *History of present illness: Is a 63-year-old female with a history of a CVA she has been in a residential and has had left-sided weakness since 2013. Presents to the emergency department with dyspnea. Team was rounding on her at the residential and found her to be in acute renal failure and sent her to the emergency department. Patient denies any cough or fevers. States she is recently had significant dysuria and is being treated for urinary tract infection. States she has not had any urine output since yesterday. [facility] Disclaimer: The information contained in this section may have been updated after the patient was seen, as this information can be updated by other users. 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 Denies recent onset of TIA/stroke like symptoms. Functional decline x last 6 months, wheelchair bound due to severe left knee pain, swelling. Diabetes mellitus Dysfunction of right eustachian tube Dyspnea on exertion Edema Essential (primary) hypertension Fibromyalgia, primary Foot pain Gastro-esophageal reflux disease without esophagitis Heart failure, unspecified Hemiplegia and hemiparesis following cerebral infarction affecting left dominant side History of breast cancer History of smoking 30 or more pack years Hypertension Hypertensive heart disease without heart failure Insomnia with sleep apnea, unspecified Iron deficiency anemia secondary to blood loss (chronic) Left leg swelling longterm (current) use of oral hypoglycemic drugs Major depressive disorder, recurrent, unspecified Mediastinal lymphadenopathy Need for assistance at home and no other household member able to render care Obstructive sleep apnea (adult) (pediatric) Other idiopathic peripheral autonomic neuropathy Other specified disorders of bone density and structure, left shoulder Otogenic otalgia of left ear Otogenic otalgia of right ear Polyosteoarthritis, unspecified PVC (premature ventricular contraction) Restrictive lung disease SOB (shortness of breath) on exertion Stopped smoking with greater than 30 pack year history Tobacco abuse Trochanteric bursitis, right hip Unilateral primary osteoarthritis, right hip Unspecified diastolic (congestive) heart failure Unspecified sequelae of unspecified cerebrovascular disease Surgical History History of CEA (carotid endarterectomy) History of right mastectomy History of total left knee replacement Family History Other Black lung disease Diabetes Hypertension Social History (Updated 10/05/23 @ 00:44 by Pooja Quintanilla RN) Smoking Status: Former smoker tobacco type: cigarettes packs per day: 1 smoking status stop date: 06/2022 alcohol intake: never substance use type: denies use current occupational status: disabled Travel in the last 8 weeks: None household members: other housing: residential caffeine: Yes Review of Systems Review of Systems Review of systems:: pertinent systems reviewed and negative unless documented below Exam Data for Last 24 hours Vital signs and Labs for Last 24 Hours: Temp Pulse Resp BP Pulse Ox O2 Del Method O2 Flow Rate 98 F 88 19 122/59 L 93 L Nasal Cannula 3 10/05/23 00:00 10/05/23 00:00 10/05/23 00:00 10/05/23 00:00 10/05/23 00:49 10/05/23 00:49 10/05/23 00:49 Laboratory Results - last 24 hr 10/04/23 14:28: WBC 13.8 H, RBC 3.93 L, Hgb 11.1 L, Hct 34.1 L, MCV 86.8, MCH 28.2, MCHC 32.5, RDW 14.5, Plt Count 324, MPV 9.4, Neut % (Auto) 86.1 H, Lymph % (Auto) 7.6 L, [place] % (Auto) 3.3, Eos % (Auto) 2.9, Baso % (Auto) 0.1, Neut # (Auto) 11.9 H, Lymph # (Auto) 1.0, [place] # (Auto) 0.5, Eos # (Auto) 0.4, Baso # (Auto) 0.0, Total Counted 100, Neutrophils % (Manual) 87 H, Lymphocytes % (Manual) 11, Monocytes % (Manual) 2, Platelet Estimate Normal, Hypochromasia 2+, Sodium 136, Potassium 6.0 H, Chloride 100, Carbon Dioxide 29, Anion Gap 13.0, BUN 60 H, Creatinine 4.30 H, Estimated Creat Clear 20, Estimated GFR 10 L*, Est GFR ( Amer) 13 L*, Glucose 229 H, Calcium 8.9, Total Bilirubin 0.4, AST 39 H, ALT 30, Alkaline Phosphatase 97, Troponin I < 0.01, NT-Pro-B Natriuret Pep 432 H, Total Protein 7.2, Albumin 3.8, Globulin 3.4 H, Albumin/Globulin Ratio 1.1 10/04/23 16:11: Urine Color Yellow, Urine Appearance Cloudy, Urine pH 6.0, Ur Specific [place] 1.010, Urine Protein Trace, Urine Glucose (UA) 2+, Urine Ketones Negative, Urine Blood Trace-l, Urine Nitrate Negative, Urine Bilirubin Negative, Urine Urobilinogen 0.2, Ur Leukocyte Esterase 2+ A, Urine RBC 5-10, Urine WBC Tntc, Ur Squamous Epith Cells None, Urine Bacteria None 10/04/23 17:59: Troponin I < 0.01 10/04/23 21:40: Troponin I < 0.01 I & O for Last 24 hours: Intake & Output 10/02/23 10/03/23 10/04/23 10/05/23 23:59 23:59 23:59 23:59 Weight 97.522 kg Constitutional Constitutional: no acute distress and cooperative Comments: BMI 35 *Routine HEENT Exam Head: Present normocephalic Eye: Present EOMI and PERRL ENT: Present mucous membranes moist *Routine Neck Exam Neck: Present supple; Absent JVD, lymphadenopathy or thyromegaly *Routine Respiratory Exam Respiratory: Present rhonchi, crackles, diminished air movement and able to speak in complete sentences Comments: Increased respiratory effort *Routine Cardiovascular Exam Cardiovascular: Present RRR; Absent murmur *Routine Abdominal Exam Abdominal: Present soft and normoactive bowel sounds; Absent tenderness *Routine Rectal Exam Rectal:: deferred *Routine Genitalia Exam Genitalia:: deferred *Routine Extremities Exam Extremities: Absent cyanosis, clubbing or edema *Routine Skin Exam Skin: Present warm; Absent rash *Routine Neurological Exam Neurological: Present alert, oriented X3, moving all extremities, vision grossly intact, hearing grossly intact and normal speech; Absent sensory deficit or motor deficit Routine Psychiatric Exam Psychiatric: Present normal affect, normal thought process, cooperative and good insight Meds Home Medications and Allergies Home Medications Medication Instructions Recorded Confirmed Type acetaminophen 500 mg tablet 500 mg PO Q6HP PRN Mild Pain 02/28/18 10/05/23 History (Scale Score 1-4) anastrozole 1 mg tablet 1 mg PO DAILY breast cancer 02/28/18 10/05/23 History atorvastatin 40 mg tablet 40 mg PO DAILY Cholesterol 02/28/18 10/05/23 History carvedilol 12.5 mg tablet 12.5 mg PO BID Hypertension 02/28/18 10/05/23 History loperamide 2 mg capsule 2 mg PO Q4HP PRN Diarrhea 07/11/18 10/05/23 History baclofen 10 mg tablet 10 mg PO TID muscle spasms 04/11/19 10/05/23 History pantoprazole 20 mg tablet,delayed 20 mg PO DAILY GERD 04/11/19 10/05/23 History release (Protonix) clopidogrel 75 mg tablet 75 mg PO DAILY 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 02/04/20 10/05/23 History multivitamin with minerals 1 each PO DAILY Supplement 05/06/21 10/05/23 History sennosides 8.6 mg tablet 17.2 mg PO HSP PRN Constipation 05/06/21 10/05/23 History ferrous sulfate 325 mg (65 mg 325 mg PO DAILY Supplement 07/28/22 10/05/23 History iron) tablet (iron) glipizide 2.5 mg tablet, extended 2.5 mg PO DAILY Diabetes 07/28/22 10/05/23 History release 24 hr ondansetron 4 mg disintegrating 4 mg PO Q6HP PRN Nausea And 07/28/22 10/05/23 History tablet Vomiting trazodone 150 mg tablet 300 mg PO HS SLEEP 07/28/22 10/05/23 History empagliflozin 10 mg tablet 10 mg PO DAILY . 08/27/22 10/05/23 History (Jardiance) magnesium oxide 400 mg (241.3 mg 400 mg PO BID Supplement 08/27/22 10/05/23 Hist ory magnesium) tablet spironolactone 50 mg tablet 50 mg PO DAILY blood pressure 09/09/22 10/05/23 History bumetanide 2 mg tablet 2 mg PO BID Fluid 11/24/22 10/05/23 History pregabalin 50 mg capsule 50 mg PO TID nerve pain #90 caps 07/05/23 10/05/23 Rx aluminum hydrox-magnesium carb 95 30 ml PO QID PRN heart burn 08/01/23 10/05/23 History mg-358 mg/15 mL oral suspension (Acid Gone Antacid) calcium carbonate 600 mg calcium 600 mg PO BID 08/01/23 10/05/23 History (1,500 mg) tablet doxycycline monohydrate 100 mg 100 mg PO BID preventative 08/01/23 10/05/23 History tablet valsartan 80 mg tablet 80 mg PO BID htn 08/01/23 10/05/23 History ascorbic acid (vitamin C) 500 mg 500 mg PO DAILY Supplement 08/18/23 10/05/23 History tablet (Vitamin C) fentanyl 12 mcg/hr transdermal 1 patch transdermal Q72H #10 09/10/23 10/05/23 Rx patch patches azelastine 137 mcg (0.1 %) nasal 2 spray intranasal BID allergy 09/13/23 10/05/23 Rx spray aerosol symptoms #30 mL venlafaxine 150 mg 150 mg PO DAILY 09/13/23 10/05/23 History capsule,extended release 24 hr venlafaxine 75 mg capsule,extended 75 mg PO DAILY 09/13/23 10/05/23 History release 24 hr aripiprazole 2 mg tablet (Abilify) 2 mg PO DAILY 10/04/23 10/05/23 History cholecalciferol (vitamin D3) 25 25 mcg PO BID 10/04/23 10/05/23 History mcg (1,000 unit) tablet (Vitamin D3) cyanocobalamin (vitamin B-12) 1,000 mcg PO DAILY 10/04/23 10/04/23 History 1,000 mcg tablet (Vitamin B-12) dextromethorphan-guaifenesin 30 1 tab PO Q12H 10/04/23 10/04/23 History mg-600 mg tablet extended [id number] hr (Mucinex DM) fluticasone furoate 100 1 inh inhalation DAILY 10/04/23 10/04/23 History mcg-vilanterol 25 mcg/dose inhalation powder (Breo Ellipta) fluticasone propionate 50 1 spray intranasal BID 10/04/23 10/05/23 History mcg/actuation nasal spray,suspension magnesium oxide 400 mg PO BID 10/04/23 10/04/23 History oxycodone-acetaminophen 5 mg-325 1 tab PO TID PRN Pain (Scale Score 10/04/23 10/05/23 History mg tablet (Percocet) 7-10) paroxetine HCl 10 mg tablet (Paxil) 10 mg PO DAILY 10/04/23 10/05/23 History rivaroxaban 15 mg tablet (Xarelto) 15 mg PO DAILY 10/04/23 10/05/23 History New Prescriptions to Start Prescriptions: Allergies Allergy/AdvReac Type Severity Reaction Status Date / Time bupropion [From WELLBUTRIN] Allergy Unknown Verified 09/15/23 13:16 hydrocodone [From LORTAB] Allergy Unknown Verified 09/15/23 13:16 Sulfa (Sulfonamide Allergy Unknown Verified 09/15/23 13:16 Antibiotics) [SULFA (SULFONAMIDE ANTIBIOTICS)] tramadol [From ULTRAM] Allergy Unknown Verified 09/15/23 13:16 SURGICAL TAPE Allergy Unknown Uncoded 09/15/23 13:16 Hospital Course Hospital Course Hospital Course: Is a 63-year-old female with a history of a CVA she has been in a residential and has had left-sided weakness since 2013. Presents to the emergency department with dyspnea. Team was rounding on her at the residential and found her to be in acute renal failure and sent her to the emergency department. Patient denies any cough or fevers. States she is recently had significant dysuria and is being treated for urinary tract infection. States she has not had any urine output since yesterday. Basic blood work initiated which shows acute kidney failure with a creatinine of 4.3. Also has some hyperkalemia. As there are some abnormalities on the EKG particularly a QRS that is wider than 120 will initiate some hyperkalemic treatment. Patient is an uric we will place a Parekh catheter she has symptoms of urinary tract infection with a low threshold to treat with IV antibiotics. She will likely need to be transferred to a location where there is nephrology coverage. I will also do a bedside ultrasound to make sure she does not have a pericardial effusion given the renal failure and the dyspnea and cardiomegaly noted on chest x-ray as well as low voltage QRS on EKG. Chest x-ray was performed to person interpreted which shows cardiomegaly but no focal parenchymal lung disease. Results Data Completed and Pending Labs on day of discharge: Labs from last 24 hours 10/04/23 10/04/23 10/04/23 21:40 17:59 16:11 WBC RBC Hgb Hct MCV MCH MCHC RDW Plt Count MPV Neut % (Auto) Lymph % (Auto) [place] % (Auto) Eos % (Auto) Baso % (Auto) Neut # (Auto) Lymph # (Auto) [place] # (Auto) Eos # (Auto) Baso # (Auto) Total Counted Neutrophils % (Manual) Lymphocytes % (Manual) Monocytes % (Manual) Platelet Estimate Hypochromasia Sodium Potassium Chloride Carbon Dioxide Anion Gap BUN Creatinine Estimated Creat Clear Estimated GFR Est GFR ( Amer) Glucose Calcium Total Bilirubin AST ALT Alkaline Phosphatase Troponin I < 0.01 < 0.01 NT-Pro-B Natriuret Pep Total Protein Albumin Globulin Albumin/Globulin Ratio Urine Color Yellow Urine Appearance Cloudy Urine pH 6.0 Ur Specific [place] 1.010 Urine Protein Trace Urine Glucose (UA) 2+ Urine Ketones Negative Urine Blood Trace-l Urine Nitrate Negative Urine Bilirubin Negative Urine Urobilinogen 0.2 Ur Leukocyte Esterase 2+ A Urine RBC 5-10 Urine WBC Tntc Ur Squamous Epith Cells None Urine Bacteria None 10/04/23 14:28 WBC 13.8 H RBC 3.93 L Hgb 11.1 L Hct 34.1 L MCV 86.8 MCH 28.2 MCHC 32.5 RDW 14.5 Plt Count 324 MPV 9.4 Neut % (Auto) 86.1 H Lymph % (Auto) 7.6 L [place] % (Auto) 3.3 Eos % (Auto) 2.9 Baso % (Auto) 0.1 Neut # (Auto) 11.9 H Lymph # (Auto) 1.0 [place] # (Auto) 0.5 Eos # (Auto) 0.4 Baso # (Auto) 0.0 Total Counted 100 Neutrophils % (Manual) 87 H Lymphocytes % (Manual) 11 Monocytes % (Manual) 2 Platelet Estimate Normal Hypochromasia 2+ Sodium 136 Potassium 6.0 H Chloride 100 Carbon Dioxide 29 Anion Gap 13.0 BUN 60 H Creatinine 4.30 H Estimated Creat Clear 20 Estimated GFR 10 L* Est GFR ( Amer) 13 L* Glucose 229 H Calcium 8.9 Total Bilirubin 0.4 AST 39 H ALT 30 Alkaline Phosphatase 97 Troponin I < 0.01 NT-Pro-B Natriuret Pep 432 H Total Protein 7.2 Albumin 3.8 Globulin 3.4 H Albumin/Globulin Ratio 1.1 Urine Color Urine Appearance Urine pH Ur Specific [place] Urine Protein Urine Glucose (UA) Urine Ketones Urine Blood Urine Nitrate Urine Bilirubin Urine Urobilinogen Ur Leukocyte Esterase Urine RBC Urine WBC Ur Squamous Epith Cells Urine Bacteria Imaging and Cardiology Chest x-ray: Status: image reviewed by me, Preliminary report and final report EKG: Status: image reviewed by me and Preliminary report DS: Diagnosis Discharge Diagnosis (1) GEOVANNI (acute kidney injury): Status: Acute Code(s): N17.9 - Acute kidney failure, unspecified (2) Anuria: Status: Acute Code(s): R34 - Anuria and oliguria (3) Dyspnea: Status: Acute Code(s): R06.00 - Dyspnea, unspecified Qualifiers: Dyspnea type: unspecified Qualified Code(s): R06.00 - Dyspnea, unspecified (4) Hyperkalemia: Status: Acute Code(s): E87.5 - Hyperkalemia (5) UTI (urinary tract infection): Status: Acute Code(s): N39.0 - Urinary tract infection, site not specified Qualifiers: Urinary tract infection type: site unspecified Hematuria presence: without hematuria Qualified Code(s): N39.0 - Urinary tract infection, site not specified (6) (HFpEF) heart failure with preserved ejection fraction: Status: Deleted Code(s): I50.30 - Unspecified diastolic (congestive) heart failure Qualifiers: Heart failure chronicity: chronic Qualified Code(s): I50.32 - Chronic diastolic (congestive) heart failure (7) CAD (coronary artery disease): Status: Chronic Code(s): I25.10 - Atherosclerotic heart disease of [place] coronary artery without angina pectoris Qualifiers: Coronary Disease-Associated Artery/Lesion type: [place] artery [place] vs. transplanted heart: [place] heart Associated angina: without angina Qualified Code(s): I25.10 - Atherosclerotic heart disease of [place] coronary artery without angina pectoris (8) Diabetes mellitus: Status: Chronic Code(s): E11.9 - Type 2 diabetes mellitus without complications Qualifiers: Diabetes mellitus type: other specified (including VICTORIA) Diabetes mellitus chcf insulin use: unspecified chcf insulin use status Diabetes mellitus complication status: with other specified complication Qualified Code(s): E13.69 - Other specified diabetes mellitus with other specified complication (9) ARA and COPD overlap syndrome: Status: Acute Code(s): G47.33 - Obstructive sleep apnea (adult) (pediatric); J44.9 - Chronic obstructive pulmonary disease, unspecified Discharge Plan Disposition Patient Disposition: er Short-Term Hosp Discharge Order Discharge Orders: Discharge Order (Routine); Ordered 10/04/23 Ordered By: Cortez Nance Follow up Plan Prescriptions/Medication Reconciliation: Continued acetaminophen 500 mg tablet 500 mg PO Q6HP PRN (Reason: Mild Pain (Scale Score 1-4)) anastrozole 1 mg tablet 1 mg PO DAILY atorvastatin 40 mg tablet 40 mg PO DAILY carvedilol 12.5 mg tablet 12.5 mg PO BID loperamide 2 mg capsule 2 mg PO Q4HP PRN (Reason: Diarrhea) pantoprazole [Protonix] 20 mg tablet,delayed release (DR/EC) 20 mg PO DAILY baclofen 10 mg tablet 10 mg PO TID spironolactone 50 mg tablet 50 mg PO DAILY venlafaxine 75 mg capsule,extended release 24hr 75 mg PO DAILY venlafaxine 150 mg capsule,extended release 24hr 150 mg PO DAILY azelastine 137 mcg (0.1 %) aerosol,spray 2 spray intranasal BID Qty: 30 3RF Rx Instructions: administer into each nostril pregabalin 50 mg capsule 50 mg PO TID Qty: 90 5RF Acid Gone Antacid 95-358 mg/15 mL suspension 30 ml PO QID PRN (Reason: heart burn) calcium carbonate 600 mg calcium (1,500 mg) tablet 600 mg PO BID doxycycline monohydrate 100 mg tablet 100 mg PO BID valsartan 80 mg tablet 80 mg PO BID ascorbic acid (vitamin C) [Vitamin C] 500 mg tablet 500 mg PO DAILY fentanyl 12 mcg/hr patch 72 hour 1 patch transdermal Q72H Qty: 10 0RF clopidogrel 75 MG tablet 75 mg PO DAILY sennosides 8.6 MG tablet 17.2 mg PO HSP PRN (Reason: Constipation) multivitamin with minerals 1 EACH tablet 1 each PO DAILY glipizide 2.5 mg tablet extended release 24hr 2.5 mg PO DAILY ferrous sulfate [iron] 325 mg (65 mg iron) Tablet 325 mg PO DAILY ondansetron 4 mg Tablet,Disintegrating 4 mg PO Q6HP PRN (Reason: Nausea And Vomiting) trazodone 150 mg tablet 300 mg PO HS magnesium oxide 400 mg (241.3 mg magnesium) tablet 400 mg PO BID Jardiance 10 mg tablet 10 mg PO DAILY bumetanide 2 mg tablet 2 mg PO BID paroxetine HCl [Paxil] 10 mg Tablet 10 mg PO DAILY cyanocobalamin (vitamin B-12) [Vitamin B-12] 1,000 mcg Tablet 1,000 mcg PO DAILY oxycodone-acetaminophen [Percocet] 5-325 mg Tablet 1 tab PO TID PRN (Reason: Pain (Scale Score 7-10)) Mucinex DM 30-600 mg Tablet Extended Release 12 Hr 1 tab PO Q12H fluticasone propionate 50 mcg/actuation [place],Suspension 1 spray INTRANASAL BID Rx Instructions: administer into each nostril aripiprazole [Abilify] 2 mg Tablet 2 mg PO DAILY cholecalciferol (vitamin D3) [Vitamin D3] 25 mcg (1,000 unit) Tablet 25 mcg PO BID Xarelto 15 mg Tablet 15 mg PO DAILY fluticasone furoate-vilanterol [Breo Ellipta] 100-25 mcg/dose Blister With Device 1 inh INHALATION DAILY magnesium oxide 400 mg magnesium Tablet 400 mg PO BID Problem Reconciliation Problems Reviewed?: Yes Patient Discharge Instructions ACTIVITY: Continue current activity DIET: continue same diet Stand Alone Forms: Transfer Record Patient Instructions: Acute Kidney Injury, DI for Urinary Tract Infection (UTI), DI for Hyperkalemia, DI for Knee Pain Providers Primary Care Provider: Jhon Cespedes Admit Provider: Marques Cheng Attending Provider: Marques Cheng
--- NOTE | 2023-10-05 02:18 | PC.NURSE ---
pt discharged off the floor via EMS @1153
--- NOTE | 2023-10-05 02:30 | PC.WOUNDNOTE ---
Wound to left knee
--- OUTSIDE RECORDS SUMMARY | 2023-10-05 17:07 | XMS_ITS ---
Author Name Unknown Address [address] [place] [address] [address] [place] [address] Phone Organization [facility] Address [address] [facility] [address] [place] [address] Phone Care Team Providers Care Filing Machine Operator Name Role Phone Ladonna BENSON, Arie Webster Unavailable [ ] Conditions or Problems No information available. Medications Medication Instructions Start Date Stop Date Generic Name NDC Provider DOXYCYCLINE MONOHYDRATE 100 MG CAPS Take 1 capsule by mouth twice a day 1 doxycycline monohydrate [id number] Arie Dougherty MD Medications Administered No information [...]
--- OUTSIDE RECORDS SUMMARY | 2023-10-05 17:07 | XMS_ITS ---
Author Name Unknown Address [address] [facility] [place] [address] Phone Organization [facility] Address [address] [place] [address] Phone Care Team Providers Care Body Builder Name Role Phone Keagan BENSON, Tello Nathan [...] Entry Date CPT-ca Continue IV antibiotics 2022 CPT-19579 CMP [id number] CBC with Differential 2022 CPT-41664 C- reactive protein [id number], [id number] CPK Vital Signs Date Name Value Unit [...]
--- OUTSIDE RECORDS SUMMARY | 2023-10-05 17:07 | XMS_ITS ---
Author Name Unknown Address [address] [place] [address] Phone Organization [facility] Address [address] [place] [address] Phone Care Team Providers Care Lna Name Role Phone Arie Dougherty MD Unavailable [ ] Conditions or Problems No information available. Medications No information available. Medications Administered No information available. Allergies, Adverse Reactions, Alerts No information available. Results Date Name Value Unit Range Flag Description Office Visit: Office Visit: [facility] ORALTOBACUSE Never Tobacco smoking status SMOK [...]
--- OUTSIDE RECORDS SUMMARY | 2023-10-05 17:07 | XMS_ITS | Continuity of Care Document ---
Author Name Unknown Organization [facility] Address [address] [facility] [address] [place] [address] Phone Care Team Providers Care Canvas Goods Maker Name Role Phone Andrei Dyer DPM Unavailable [...] Date Provider Providers Copied on Encounter [facility], [address], [id number], tel:[phone] [facility] Tinea unguiumType 1 diabetes mellitus with hyperglycemia Pain in right toe(s)Pain in left toe(s) [address]. [address] [facility], [place], [id number], [place]. tel:[phone] [place] [address], [address], [id number], tel:[phone] [facility] Nail Pain (chief complaint) Tinea unguiumPain in right toe(s)Pain in left toe(s) [address] Forbes. [address] [facility], [address], [id number], [place]. tel:[phone] [place] [address], [address] [facility] [address], [place], [place], [id number], tel:[phone] [facility] Nail Pain (chief complaint) Tinea unguiumPain in right toe(s)Pain in left toe(s)Type 1 diabetes mellitus with hyperglycemia [address] Gomez Andrei. [address] [facility], [address], [place], [place], [id number], . tel:[phone] Family History Family Member Type Diagnosis Age At Onset No Information Payers Payer name Insurance type Covered green party ID Authoriza tion(s) Medicare [facility] [id number] Medicaid [facility] [id number] Social History Type Description Quantity Date Captured [...]
--- OUTSIDE RECORDS SUMMARY | 2023-10-05 17:07 | XMS_ITS | Clinical Summary ---
Author Name Unknown Address [address] [place] [address] Phone Organization [facility] Address [address] [place] [address] Phone Care Team Providers Care Fresh Work Inspector Name Role Phone Arie Dougherty MD [ ] Conditions or Problems Problem Name Problem Code Onset Date Status Entry Date Provider Comment Standard Description Annotate manager terminal (current) use of suppressive antibiotics Z79.2 (ICD-10-CM ) 01/14 Active 01/14 Helen L manager terminal (current) use of antibiotics Anemia in chronic diseases(docu ment disease) D63.8 (ICD-10-CM ) 01/14 Active 01/14 Helen L Anemia in other chronic diseases classified elsewhere Chronic respiratory failure with hypoxia 13450560 (SNOMED CT) 01/14 Active 01/14 Helen L Acute respiratory failure COPD 12347585 (SNOMED CT) 01/14 Active 01/14 Helen L Chronic obstructive lung disease DM Type II E11.9 (ICD-10-CM ) 01/14 Active 01/14 Helen L Type 2 diabetes mellitus without complications Benign Essential Hypertension 63502911 (SNOMED CT) 01/14 Active 01/14 Helen L Benign hypertension Acquired absence of left knee joint 628463502 (SNOMED CT) 03/02 Resolved 03/02 Helen L History of operative procedure on knee Obesity due to excess calories E66.09 (ICD-10-CM ) 03/02 Resolved 03/02 Helen L Other obesity due to excess calories manager terminal (current) use of anticoagulant s Z79.01 (ICD-10-CM ) 03/02 Resolved 03/02 Helen L [facility]PC (current) use of anticoagulants Staph epi infection B95.7 (ICD-10-CM ) 03/02 Resolved 03/02 Helen L Other staphylococcus as the cause of diseases classified elsewhere Diarrhea 83078269 (SNOMED CT) 09/28 Resolved 09/28 Helen L Diarrhea Staph hominis infection B95.7 (ICD-10-CM ) 09/28 Resolved 09/28 Helen L Other staphylococcus as the cause of diseases classified elsewhere Staph hominis infection B95.7 (ICD-10-CM ) 09/28 Removed 09/28 Arie Dougherty MD Other staphylococcus as the cause of diseases classified elsewhere Diarrhea 67507955 (SNOMED CT) 09/28 Removed 09/28 Arie Dougherty MD Diarrhea Acquired absence of left knee joint 586744474 (SNOMED CT) 03/02 Removed 03/02 Helen L History of operative procedure on knee Cellulitis of left leg 258942032 (SNOMED CT) 03/02 Active 03/02 Helen L Cellulitis of lower limb Knee, left, subsequent encounter, infection/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 T84.54xD (ICD-10-CM ) 03/02 Active 03/02 Helen L Infection and inflammatory reaction due to internal left knee prosthesis, subsequent encounter Staph epi infection B95.7 (ICD-10-CM ) 03/02 Removed 03/02 Helen L Other staphylococcus as the cause of diseases classified elsewhere manager terminal (current) use of anticoagulant s Z79.01 (ICD-10-CM ) 03/02 Removed 03/02 Helen L manager terminal (current) use of anticoagulants Obesity due to excess calories E66.09 (ICD-10-CM ) 03/02 Removed 03/02 Helen L Other obesity due to excess calories Hx of malignant neoplasm of breast 333911600 (SNOMED CT) 03/02 Active 03/02 Helen L History of malignant neoplasm of breast Medications Medication Instructions Start Date Stop Date Generic Name NDC Provider ceftriaxone recon soln 2GM IV Q24hrs [facility] 02/18 ceftriaxone recon soln Temi Norris Cubicin RF 800mg IV Q48hrs [facility] 02/18 daptomycin Temi Norris DOXYCYCLINE MONOHYDRATE 100 MG CAPS Take 1 capsule by mouth twice a day 02/03 doxycycline monohydrate 78109070804 Arie Dougherty MD Cubicin RF 800mg IV Q48hrs [facility] 02/18 daptomycin Nubia [place] ceftriaxone recon soln 2GM IV Q24hrs [facility] 02/18 ceftriaxone recon soln Nubia [place] IPRATROPIUM-ALBUT MIKE 0.5-2.5 (3) MG/3ML SOLN 3 ml by mouth PRN 01/27 ipratropium-albut mike 81461363614 Nubia Minor GAVISCON 95-358 MG/15ML SUSP by mouth four times a day 30 mL aluminum hydrox-magnesium carb 59586100485 Nubia Minor IPRATROPIUM-ALBUT MIKE 0.5-2.5 (3) MG/3ML SOLN using nebulizer every six hours PRN ipratropium-albut mike 23898844235 Nubia Minor BASAGLAR KWIKPEN 100 UNIT/ML SOPN subcutaneously once a day insulin glargine 54502417175 Nubia Minor MUCUS RELIEF D 60-600 MG [id number] by mouth twice a day pseudoephedrine-g uaifenesin 82594340692 Nubia Minor VITAMIN B-12 100 MCG TABS by mouth once a day cyanocobalamin (vitamin b-12) 13811629759 Nubia Minor PERCOCET 5-325 MG TABS 1-2 tablet every four to six hours oxycodone-acetami nophen 33197855505 Nubia Minor BIOTIN 1000 MCG TABS by mouth once a day biotin 46141406362 Nubia Minor GABAPENTIN 800 MG TABS by mouth four times a day as needed gabapentin 92148911193 Nubia Poncho ATORVASTATIN CALCIUM 40 MG TABS by mouth every morning Hold while on daptomycin atorvastatin 60290473683 Nubia Poncho FERROUS SULFATE 325 (65 Fe) MG TABS by mouth once a day ferrous sulfate 11371736743 Nubia Minor VENLAFAXINE HCL 75 MG TABS by mouth twice a day venlafaxine 41647030975 Nubia Poncho CITRACAL MAXIMUM 315-6.25 MG-MCG TABS by mouth twice a day calcium citrate-vitamin d3 60226285721 Nubia Minor JANUMET XR 50-1000 MG [id number] by mouth twice a day sitagliptin phos-metformin 43761951481 Nubia Minor GNP HYDROCORTISONE/AL OE 1 % CREA Apply to skin twice a day as needed hydrocortisone acetate 02993577678 Nubia Minor MS CONTIN 15 MG CR-TABS by mouth twice a day morphine 22717552321 Nubia Minor OMEPRAZOLE 20 MG TBEC 2 tablet by mouth once a day omeprazole 88138932793 Nubia Minor DOXYCYCLINE HYCLATE 100 MG TABS Take 1 tablet by mouth twice a day 0 01/11 doxycycline hyclate 13638108020 Nubia Minor CARVEDILOL 12.5 MG TABS by mouth twice a day carvedilol 59080406226 Nubia Minor PROMETHAZINE HCL 25 MG TABS by mouth three times a day as needed promethazine 64966921462 Nubia Minor TIZANIDINE HCL 4 MG TABS by mouth three times a day as needed tizanidine 10422611710 Nubia Minor LACTULOSE 10 GM/15ML SOLN 30 ml by mouth as needed lactulose 81500354732 Nubia Minor COLACE 100 MG CAPS by mouth twice a day as needed docusate sodium 65402951998 Nubia Minor XARELTO TABLET 15 mg 15 mg Take 1 by mouth once a day XARELTO TABLET 15 mg 15 mg Nubia Minor ANASTROZOLE 1 MG TABS by mouth once a day anastrozole 70256510742 Nubia Minor ACETAMINOPHEN 500 MG TABS by mouth every six hours PRN acetaminophen 39203991625 Nubia Minor LOPERAMIDE HCL 2 MG CAPS by mouth once a day PRN loperamide 23664606727 Nubia Minor ASCORBIC ACID 500 MG TABS by mouth 0.5 tab am and 0.5 tab pm ascorbic acid (vitamin c) 26802458526 Nubia Minor BACLOFEN 10 MG TABS by mouth three times a day baclofen 35700342267 Nubia Minor BREO ELLIPTA 100-25 MCG/ACT AEPB every morning fluticasone furoate-vilantero l 03600708683 Nubia Minor BUMETANIDE 2 MG TABS by mouth twice a day bumetanide 72756049441 Nubia Minor CALCIUM 600 1500 (600 Ca) MG TABS by mouth twice a day calcium carbonate 25259089933 Nubia Minor D3 HIGH POTENCY 10 MCG (400 UNIT) TABS by mouth 2.5 units am and 2.5 units pm cholecalciferol (vitamin d3) 87607879888 Nubia Minor PLAVIX 75 MG TABS by mouth every morning clopidogrel 76292824264 Nubia Minor VITAMIN B-12 1000 MCG TABS by mouth every morning cyanocobalamin (vitamin b-12) 03248672417 Nubia Minor FLONASE ALLERGY RELIEF 50 MCG/ACT SUSP intranasally every morning fluticasone propionate 80040614654 Nubia Minor FOSAMAX 70 MG TABS by mouth once a week alendronate 31760696018 Nubia Minor GLIPIZIDE ER 2.5 MG [id number] by mouth every morning 0.5 tab glipizide 68620031771 Nubia Minor LANTUS SOLOSTAR 100 UNIT/ML SOPN 8 unit subcutaneously every night insulin glargine 38228201590 Nubia Minor IPRATROPIUM-ALBUT MIKE 0.5-2.5 (3) MG/3ML SOLN 3 ml by mouth PRN 01/27 ipratropium-albut mike 41997333086 Nubia Minor JARDIANCE 10 MG TABS by mouth every morning empagliflozin 26005772402 Nubia Minor MAGNESIUM OXIDE 400 MG TABS by mouth twice a day magnesium oxide 07233987330 Nubia Minor METFORMIN HCL 1000 MG TABS by mouth twice a day metformin 32037553309 Nubia Isaac MULTI-VITAMIN HP/MINERALS CAPS by mouth once a day multivitamin,tx-m inerals 33533140397 Nubia Isaac ONDANSETRON HCL 4 MG TABS by mouth twice a day PRN ondansetron hcl 87181071743 Nubia Isaac PANTOPRAZOLE SODIUM 20 MG TBEC by mouth once a day pantoprazole 06133192022 Nubia Isaac PREGABALIN 50 MG CAPS by mouth three times a day pregabalin 70428067025 Nubia Isaac SENNA 8.6 MG TABS by mouth 2 tabs PRN sennosides 44644237977 Nubia Isaac SPIRONOLACTONE 50 MG TABS by mouth once a day spironolactone 79844045982 Nubia Isaac TRAZODONE HCL 150 MG TABS by mouth once a day 2 tabs trazodone 51432798428 Nubia Isaac VALSARTAN 80 MG TABS by mouth twice a day valsartan 87649970903 Nubia Isaac VENLAFAXINE HCL ER 150 MG [id number] by mouth every morning venlafaxine 35555982294 Nubia Isaac VANCOMYCIN HCL SOLR 1gm IV q 12 x 6wks [facility] [phone] 10/05 VANCOMYCIN HCL SOLR 36672535241 Libby Cabello RN MS CONTIN 15 MG CR-TABS by mouth twice daily 01/11 MORPHINE SULFATE 61721363351 Arie Dougherty MD PERCOCET 5-325 MG TABS 1-2 tabs, every four to six hours, do not exceed 4000mg of acetaminophen per day 01/11 OXYCODONE-ACETAMI NOPHEN 61704190104 Arie Dougherty MD [facility] IRON 325 (65 Fe) MG TABS by mouth daily 01/11 FERROUS SULFATE 89515965657 Arie Dougherty MD COLACE 100 MG CAPS by mouth twice daily as needed 01/11 DOCUSATE SODIUM 72531882131 Arie Dougherty MD DOXYCYCLINE HYCLATE 100 MG TABS take 1 tab po BID 01/11 DOXYCYCLINE HYCLATE 23469720440 Arie Dougherty MD XARELTO TABLET Take one by mouth once daily. 01/11 RIVAROXABAN TABS 43377422219 Arie Dougherty MD COUMADIN 5 MG ORAL TABLET by mouth, AC dinner 10/17 WARFARIN SODIUM 52338253290 Arie Dougherty MD VANCOMYCIN HCL SOLR 1gm IV q 12 x 6wks [facility] [phone] 08/22 VANCOMYCIN HCL SOLR 63442574220 [facility] VANCOMYCIN HCL SOLR 750 mg IV q 12 x 6wks [facility] [phone] 03/31 VANCOMYCIN HCL SOLR 58014924537 [facility] VANCOMYCIN HCL SOLR 750 mg IV q 12 x 6wks [facility] [phone] 08/22 VANCOMYCIN HCL SOLR 12561170021 Daily Lewis RN VENLAFAXINE HCL 75 MG TABS by mouth twice daily 01/11 VENLAFAXINE HCL 34158795913 Kulwant P PROMETHAZINE HCL 25 MG TABS by mouth three times a day as needed 01/11 PROMETHAZINE HCL 85170378850 Kulwant P B-12 100 MCG TABS by mouth daily 09/29 CYANOCOBALAMIN 10416717572 Kulwant P JANUMET XR 50-1000 MG [id number] by mouth twice daily 01/11 SITAGLIPTIN-METFO RMIN HCL 21164661406 Kulwant P TIZANIDINE HCL 4 MG TABS by mouth three times a day as needed 01/11 TIZANIDINE HCL 00271611392 Kulwant P GABAPENTIN 800 MG TABS by mouth four times a day as needed 01/11 GABAPENTIN 15360170509 Kulwant P CARVEDILOL 12.5 MG TABS by mouth twice daily 01/11 CARVEDILOL 23598888384 Kulwant P ANASTROZOLE 1 MG TABS by mouth daily 01/11 ANASTROZOLE 37853660487 Kulwant P CITRACAL MAXIMUM 315-6.25 MG-MCG TABS by mouth twice daily 01/11 CALCIUM CITRATE-VITAMIN D 07651400245 Kulwant P [facility] OMEPRAZOLE 20 MG TBEC 2 tabs by mouth once daily 01/11 OMEPRAZOLE 46700399714 Kulwant P BIOTIN 1000 MCG TABS by mouth daily 01/11 BIOTIN 19714947836 Kulwant P ATORVASTATIN CALCIUM 40 MG TABS by mouth at bedtime 01/11 ATORVASTATIN CALCIUM 66413017807 Kulwant P COUMADIN 5 MG ORAL TABLET by mouth, AC dinner 05/19 WARFARIN SODIUM 24867823168 Kulwant P LACTULOSE SOLN 30mL by mouth as needed 01/11 LACTULOSE SOLN 95110141020 Kulwant P HYDROCORTISONE ACETATE 1 % CREA apply topically twice a day as needed 10/04 HYDROCORTISONE ACETATE 60414803607 Kulwant P MS CONTIN 15 MG CR-TABS by mouth twice daily 11/20 MORPHINE SULFATE 44193868359 Kulwant P [facility] IRON 325 (65 Fe) MG TABS by mouth daily 11/20 FERROUS SULFATE 41140626462 Kulwant P COLACE 100 MG CAPS by mouth twice daily as needed 12/18 DOCUSATE SODIUM 29277213292 Kulwant P PERCOCET 5-325 MG TABS 1-2 tabs, every four to six hours, do not exceed 4000mg of acetaminophen per day 11/20 OXYCODONE-ACETAMI VIDYAHEN 58130972391 Kulwant P VANCOMYCIN HCL SOLR 1gm IV q 12 x 6wks [facility] [phone] 08/22 VANCOMYCIN HCL SOLR 81542324534 [facility] Medications Administered No information available. Allergies, Adverse [...] or Plasma Office Visit: rm #8 DIET DIET ASSISTANT yes Dietary management education, guidance, and counseling (procedure) CIGARET SMKG yes Tobacco smoking status Lab Report: SEDIMENTATION RA TE ESR 25 mm/h 0-30 Erythrocyte sedimentation rate by Westergren method Office Visit: 7 ORALTOBACUSE Never Tobacco smoking [...] education WEIGHT%20MANAG EMENT Patient education WEIGHT%20MANAG EMENT Procedures Code Procedure Name Date Entry Date CPT-DC Discontinue IV antibiotics 2 CPT-robert New Oral Antibiotic CPT-ca Continue IV antibiotics 2022 CPT-40673 CMP [id number] CBC with Differential 2022 CPT-99278 C- reactive protein [id number], [id number] CPK CPT-J7030 IV Fluids CPT-sl STAT Labs CPT-sl STAT Labs CPT-sl STAT Labs CPT-61859 C- reactive protein CPT-86574 Sedimentation Rate (ESR) 201 02/20/04 CPT-12504 Vancomycin Trough CPT-36272 CMP [id number] CBC with Differential 2015 CPT-62620 C- reactive protein CPT-55117 Sedimentation Rate (ESR) 201 01/31/26 CPT-ca Continue IV antibiotics 2015 CPT-wpc Weekly PICC Line Care 09/28 CPT-99875 CMP [id number] CBC with Differential 2015 CPT-62205 Vancomycin Trough CPT-67455 C- reactive protein CPT-54102 Sedimentation Rate (ESR) 201 01/31/07 CPT-cdpcr C-Diff PCR CPT-isi New IV antibiotic CPT-07358 PICC Line Insertion CPT-63249 CMP [id number] CBC with Differential 2015 CPT-33924 C- reactive protein CPT-36618 Sedimentation Rate (ESR) 201 01/30/30 CPT-DC Discontinue IV antibiotics 2 CPT-PICREM PICC Removal CPT-ca Continue IV antibiotics 2015 CPT-06904 CMP [id number] CBC with Differential 2015 CPT-04786 C- reactive protein CPT-41932 Sedimentation Rate (ESR) 201 01/27/01 CPT-43856 Vancomycin Trough CPT-ca Continue IV antibiotics 2015 CPT-39195 CMP [id number] CBC with Differential 2015 CPT-07753 C- reactive protein CPT-09997 Sedimentation Rate (ESR) 201 01/27/20 CPT-30013 Vancomycin Trough CPT-ca Continue IV antibiotics 2015 [...]
== END 2023-10-05 02:18 | disposition short-term general hospital (02) | DRG 641 ==
LOC: ER 19:36 → 2ND 22:11
PROVIDERS: Student in an Organized Health Care Education/Training Program; Admitting Provider Internal Medicine Adolescent Medicine; Emergency Provider Emergency Medicine; PCP Internal Medicine; Visit Provider Internal Medicine Adolescent Medicine
DX: E87.5 Hyperkalemia (principal); N17.9 Acute kidney failure, unspecified; I50.32 Chronic diastolic (congestive) heart failure; I69.354 Hemiplegia and hemiparesis following cerebral infarction affecting left non-dominant side; N39.0 Urinary tract infection, site not specified; J96.11 Chronic respiratory failure with hypoxia; F41.9 Anxiety disorder, unspecified; I25.10 Atherosclerotic heart disease of native coronary artery without angina pectoris; J44.9 Chronic obstructive pulmonary disease, unspecified; I10 Essential (primary) hypertension; M79.7 Fibromyalgia; K21.9 Gastro-esophageal reflux disease without esophagitis; Z85.3 Personal history of malignant neoplasm of breast; I11.0 Hypertensive heart disease with heart failure; I50.82 Biventricular heart failure; Z87.891 Personal history of nicotine dependence; Z96.652 Presence of left artificial knee joint; Z79.84 Long term (current) use of oral hypoglycemic drugs
CPT/HCPCS: 36415; 51702; 71045; 80053; 81001; 83880; 84484; 85007; 85025; 87086; 93005; 99291; G0378; J0696

== ENCOUNTER 2023-11-30 10:51 | Outpatient (CLI) | payer MEDICARE, MEDICAID, SELFPAY ==
[2023-11-30] MEDS: DENOSUMAB 60 MG/ML SYRINGE SQ (11:18)
[2023-11-30 11:20] VITALS: BP 109/66; PULSE 84; RESP 16; O2SAT 98
== END 2023-11-30 11:35 | disposition home or self-care (01) ==
LOC: INF 10:51
PROVIDERS: PCP Internal Medicine; Visit Provider Internal Medicine Medical Oncology
DX: M81.0 Age-related osteoporosis without current pathological fracture (principal)
CPT/HCPCS: 96372; J0897

== ENCOUNTER 2024-01-02 08:34 | Outpatient (CLI) | payer MEDICARE, MEDICAID, SELFPAY ==
[2024-01-02] MEDS: SODIUM CHLORIDE 0.9% 50ML BAG 50 ML IV (08:51)
[2024-01-02] MEDS: IRON SUCROSE COMPLEX 200 MG in 0.9 % SODIUM CHLORIDE 100 ML 220 MG IV (08:52)
[2024-01-02 08:55] VITALS: BP 91/52; PULSE 82; RESP 18; O2SAT 94
[2024-01-02 09:40] VITALS: BP 91/56; PULSE 80; RESP 18; O2SAT 96
== END 2024-01-02 09:40 | disposition home or self-care (01) ==
LOC: INF 08:36
PROVIDERS: PCP Internal Medicine; Visit Provider Internal Medicine Nephrology
DX: N18.1 Chronic kidney disease, stage 1 (principal); D63.1 Anemia in chronic kidney disease; D50.9 Iron deficiency anemia, unspecified
CPT/HCPCS: 96365; J1756

== ENCOUNTER 2024-01-03 11:50 | Outpatient (POV) | payer MEDICARE, MEDICAID, SELFPAY | END 2024-01-03 23:59 | disposition home or self-care (01) | LOC: SC 11:50 | PROVIDERS: Visit Provider Specialist/Technologist | DX: Z00.00 Encounter for general adult medical examination without abnormal findings (principal) ==

== ENCOUNTER 2024-01-09 09:08 | Outpatient (CLI) | payer MEDICARE, MEDICAID, SELFPAY ==
[2024-01-09 09:25] VITALS: BP 114/51; PULSE 78; RESP 18; O2SAT 96
[2024-01-09] MEDS: SODIUM CHLORIDE 0.9% 50ML BAG 50 ML IV (09:25)
[2024-01-09] MEDS: IRON SUCROSE COMPLEX 200 MG in 0.9 % SODIUM CHLORIDE 100 ML 220 MG IV (09:25)
[2024-01-09 10:10] VITALS: BP 151/48; PULSE 78; RESP 18; O2SAT 95
== END 2024-01-09 10:10 | disposition home or self-care (01) ==
LOC: INF 09:09
PROVIDERS: PCP Internal Medicine; Visit Provider Internal Medicine Nephrology
DX: N18.1 Chronic kidney disease, stage 1; D63.1 Anemia in chronic kidney disease; D50.9 Iron deficiency anemia, unspecified
CPT/HCPCS: 96365; J1756

== ENCOUNTER 2024-01-17 09:05 | Outpatient (CLI) | payer MEDICARE, MEDICAID, SELFPAY ==
[2024-01-17] MEDS: 0.9 % SODIUM CHLORIDE 50 ML 25 ML IV (09:12)
[2024-01-17] MEDS: IRON SUCROSE COMPLEX 200 MG in 0.9 % SODIUM CHLORIDE 100 ML 220 MG IV (09:18)
[2024-01-17 09:19] VITALS: BP 127/91; PULSE 94; RESP 20; TEMP 36.2; O2SAT 97
[2024-01-17] MEDS: SODIUM CHLORIDE 0.9% 10ML FLUSH SYRINGE 10 ML IV (09:19)
[2024-01-17 10:10] VITALS: BP 136/74; PULSE 77; RESP 18; O2SAT 97
== END 2024-01-17 10:10 | disposition home or self-care (01) ==
LOC: INF 09:06
PROVIDERS: PCP Internal Medicine; Visit Provider Internal Medicine Nephrology
DX: N18.1 Chronic kidney disease, stage 1; D50.9 Iron deficiency anemia, unspecified; D63.1 Anemia in chronic kidney disease
CPT/HCPCS: 96365; J1756

== ENCOUNTER 2024-01-23 08:55 | Outpatient (CLI) | payer MEDICARE, MEDICAID, SELFPAY ==
[2024-01-23] MEDS: IRON SUCROSE COMPLEX 200 MG in 0.9 % SODIUM CHLORIDE 100 ML 220 MG IV (09:15)
[2024-01-23] MEDS: SODIUM CHLORIDE 0.9% 10ML FLUSH SYRINGE 10 ML IV (09:15)
[2024-01-23] MEDS: SODIUM CHLORIDE 0.9% 50ML BAG 50 ML IV (09:15)
[2024-01-23 09:16] VITALS: BP 90/48; PULSE 79; RESP 18; TEMP 36.6; O2SAT 95
[2024-01-23 09:50] VITALS: BP 127/67; PULSE 67
== END 2024-01-23 09:55 | disposition home or self-care (01) ==
LOC: INF 08:56
PROVIDERS: PCP Nurse Practitioner Family; Visit Provider Internal Medicine Nephrology
DX: D50.9 Iron deficiency anemia, unspecified (principal); N18.1 Chronic kidney disease, stage 1; Z79.899 Other long term (current) drug therapy
CPT/HCPCS: 96365; J1756

== ENCOUNTER 2024-02-01 14:54 | Outpatient (CLI) | payer MEDICARE, MEDICAID, SELFPAY ==
[2024-02-01 15:01] LABS: Microscopic, Urine URINE MICROSCOPIC (MICROSCOPIC)
[2024-02-01 15:04] LABS: Appearance,Urine CLOUDY (Clear); Bilirubin,Urine Negative (Negative); Blood, Urine 3+ (Negative); Color,Urine YELLOW (Yellow); Glucose,Urine (UA) 3+ (Negative); Ketones,Urine Negative (Negative); Leukocyte Esterase,Urine 2+ (Negative); Nitrate,Urine Negative (Negative); Protein,Urine 2+ (Negative); Specific Gravity, Urine 1.015 (1.005-1.030); Urobilinogen,Urine 0.2 EU/dl (0.2)
[2024-02-01 15:27] LABS: WBC,Urine TNTC #/hpf (0-3)
[2024-02-01 15:29] LABS: Bacteria,Urine Trace /lpf
== END 2024-02-01 23:59 | disposition home or self-care (01) ==
LOC: LAB.DROPOF 14:55
PROVIDERS: PCP Internal Medicine; Visit Provider Family Medicine
DX: N39.0 Urinary tract infection, site not specified (principal); B96.20 Unspecified Escherichia coli [E. coli] as the cause of diseases classified elsewhere
CPT/HCPCS: 81001; 87086; 87088; 87186

== ENCOUNTER 2024-02-22 05:58 | Outpatient (CLI) | payer MEDICARE, MEDICAID, SELFPAY ==
[2024-02-22 07:05] LABS: Microscopic, Urine URINE MICROSCOPIC (MICROSCOPIC)
[2024-02-22 07:18] LABS: Bilirubin,Urine Negative (Negative); Blood, Urine 2+ (Negative); Glucose,Urine (UA) 3+ (Negative); Ketones,Urine Negative (Negative); Leukocyte Esterase,Urine 2+ (Negative); Nitrate,Urine Negative (Negative); Protein,Urine 2+ (Negative); Urobilinogen,Urine 0.2 EU/dl (0.2)
[2024-02-22 07:19] LABS: Color,Urine Straw (Yellow)
[2024-02-22 07:20] LABS: Appearance,Urine Cloudy (Clear)
[2024-02-22 07:33] LABS: WBC,Urine TNTC #/hpf (0-3)
[2024-02-22 07:35] LABS: Bacteria,Urine 2+ /lpf
== END 2024-02-22 23:59 | disposition home or self-care (01) ==
LOC: LAB.DROPOF 06:00
PROVIDERS: PCP Internal Medicine; Visit Provider Family Medicine
DX: N39.0 Urinary tract infection, site not specified (principal)
CPT/HCPCS: 81001; 87086; 87088; 87186

== ENCOUNTER 2024-03-19 10:15 | Outpatient (CLI) | payer MEDICARE, MEDICAID, SELFPAY ==
[2024-03-19 11:05] LABS: Basophils # 0.1 K/mm3 (0-0.2); Basophils % 0.8 % (0.1-2.0); Eosinophils # 0.2 K/mm3 (0.0-0.4); Eosinophils % 3.6 % (0.1-12.0); Hemoglobin 12.5 g/dL (12.2-16.2); Lymphocytes # 1.2 K/mm3 (0.7-4.5); Lymphocytes % 20.7 % (10-50); Mean Corpuscular HGB Conc 31.2 g/dL (31.8-35.4); Mean Corpuscular Hemoglobin 28.6 pg (27.0-31.2); Mean Corpuscular Volume 91.6 fl (81-99); Mean Platelet Volume 8.8 fl (7.4-10.4); Monocytes # 0.4 K/mm3 (0.1-1.0); Monocytes % 6.2 % (1.7-9.3); Neutrophils % 68.7 % (37.0-80.0); Platelet Count 309 K/mm3 (142-424); Red Blood Count 4.37 M/mm3 (4.20-5.40); Red Cell Distribution Width 17.1 % (11.5-17.5); White Blood Count 5.8 K/mm3 (4.8-10.8)
[2024-03-19 11:45] LABS: Chloride 100 mmol/L (98-107); Sodium 136 mmol/L (136-145)
[2024-03-19 11:46] LABS: Potassium 4.8 mmoL/L (3.5-5.1)
[2024-03-19 11:48] LABS: Blood Urea Nitrogen 25 mg/dl (7-17); Estimated Glomerular Filt Rate 27 ml/min (>60); GFR (African American) 32 ML/MIN (>60)
[2024-03-19 11:49] LABS: Anion Gap 13.8 mEq/L (5-15); Calcium 8.8 mg/dl (8.4-10.2); Carbon Dioxide 27 mmol/L (22.0-30.0)
[2024-03-19 11:59] LABS: Glucose 409 mg/dl (74-100)
== END 2024-03-19 23:59 | disposition home or self-care (01) ==
PROVIDERS: PCP Internal Medicine; Visit Provider Physician Assistant
DX: I10 Essential (primary) hypertension; J41.8 Mixed simple and mucopurulent chronic bronchitis; I25.10 Atherosclerotic heart disease of native coronary artery without angina pectoris; E78.5 Hyperlipidemia, unspecified; E11.9 Type 2 diabetes mellitus without complications; Z87.891 Personal history of nicotine dependence; Z79.84 Long term (current) use of oral hypoglycemic drugs; Z79.4 Long term (current) use of insulin; Z86.73 Personal history of transient ischemic attack (TIA), and cerebral infarction without residual deficits
CPT/HCPCS: 36415; 80048; 85025

== ENCOUNTER 2024-05-18 09:42 | Outpatient (CLI) | payer MEDICARE, MEDICAID, SELFPAY ==
[2024-05-18 10:21] LABS: Microscopic, Urine URINE MICROSCOPIC (MICROSCOPIC)
[2024-05-18 10:50] LABS: Appearance,Urine TURBID (Clear); Bilirubin,Urine Negative (Negative); Blood, Urine 3+ (Negative); Color,Urine YELLOW (Yellow); Glucose,Urine (UA) 2+ (Negative); Ketones,Urine Negative (Negative); Leukocyte Esterase,Urine 3+ (Negative); Nitrate,Urine Negative (Negative); Protein,Urine 2+ (Negative); Urobilinogen,Urine 0.2 EU/dl (0.2)
[2024-05-18 11:04] LABS: Bacteria,Urine 2+ /lpf; Squamous Epithelial Cell,Urine Occasional #/hpf (0-5); WBC,Urine TNTC #/hpf (0-3)
== END 2024-05-18 23:59 | disposition home or self-care (01) ==
LOC: LAB.DROPOF 09:58
PROVIDERS: PCP Internal Medicine; Visit Provider Family Medicine
DX: N39.0 Urinary tract infection, site not specified (principal); R32 Unspecified urinary incontinence
CPT/HCPCS: 81001; 87086

== ENCOUNTER 2024-07-10 10:10 | Outpatient (CLI) | payer MEDICARE, MEDICAID, SELFPAY ==
--- NOTE | 2024-07-10 10:15 | MM_ITS ---
PROCEDURE INFORMATION: Exam: MG Left Screening 3D Mammography Exam date and time: 07/10/2024 10:13 AM Age: 64 years old Clinical indication: Screening exam. Personal history of right breast cancer status post mastectomy. TECHNIQUE: Imaging protocol: Left Screening tomosynthesis and 2D mammography including computer-aided detection (CAD) when performed. COMPARISON: 1. MG MM DIG MAMM DX UNILAT LT CAD 11/07/2020 2:02 PM 2. MG MM DIG SC MAMM UNILAT LT CAD 03/19/2020 2:22 PM FINDINGS: MAMMOGRAPHY: Breast composition: There are scattered areas of fibroglandular density. Mass: No suspicious masses. Architectural distortion: None. Calcifications: No suspicious calcifications. Asymmetric density: None. Skin thickening: None. Axillary adenopathy: None. IMPRESSION: No mammographic evidence of malignancy. Annual screening is recommended unless otherwise clinically indicated. ASSESSMENT: BI-RADS Category 1: Negative.
--- NOTE | 2024-07-10 10:15 | CT_ITS ---
FINAL REPORT TECHNIQUE: Thin section axial images were obtained from the lung apices to the upper abdomen by computed tomography. Reformatted images were obtained and reviewed. This study was performed with techniques to keep radiation doses al low as reasonably achievable (ALARA). Individualized dose reduction techniques using automated exposure control or adjustment of mA and/or kV according to the patient's size were employed. CLINICAL HISTORY: lung cancer screening smoker 1 ppd x 30 years COMPARISON: 08/05/2022 FINDINGS: CHEST CT LOW DOSE 64-year-old female, current smoker, 06-hkec-sjbq history. CTDI vol (mGy): 2.9 DLP (mGy-cm): 96.38 Streak artifact is present from a right shoulder arthroplasty. There is no axillary adenopathy. There is no mediastinal or hilar mass or adenopathy. The heart is normal in size. Dense coronary artery calcifications are present. There is no pericardial or pleural effusion. The 4 mm nodule in the left lung base seen on image #23 of series 4 is stable when compared to the prior exam. There is a 4 mm nodule adjacent to the right major fissure, best seen on image #168 of series 2, that was not seen on the prior exam. There is a 4 mm nodule in the right lung base, seen on image #226 of series 2, also new since prior exam. A third new nodule is present in the right upper lung field, 4 mm in diameter, best seen on image #30 of series 2. Limited images of the upper abdomen are unremarkable. IMPRESSION: Lung-RADS category 3. Recommend 6-month month follow up low dose chest CT. Reviewed, Interpreted and Dictated by Huber Evans MD Transcribed by Leonela Goyal Authenticated and [facility]
--- NOTE | 2024-07-10 10:15 | US_ITS ---
FINAL REPORT TECHNIQUE: Real-time grayscale and color ultrasound of the thyroid was performed. CLINICAL HISTORY: POSS THYROID NODULE COMPARISON: 06/01/2021 FINDINGS: The thyroid gland measures 41 x 28 x 24 mm on the right and 52 x 24 x 21 mm on the left. The isthmus measures 4 mm. The parenchyma is unremarkable . Nodules: There is a multitude of nodule seen in the bilateral thyroid glands. There is a dominant nodule in the mid right lobe, taller than wide, heterogeneous and solid, TR 4 measuring 1.7 cm. There are multiple other nodules solid and hypoechoic measuring less than 1.5 cm. IMPRESSION: Dominant TR 4 nodule on the right. Recommend FNA per TI-RADS criteria. Other nodules as above. Follow-up ultrasound in 1 year could be obtained. Reviewed, Interpreted and Dictated by Huber Evans MD Transcribed by Maegan Regalado Authenticated and . [facility]
== END 2024-07-10 23:59 | disposition home or self-care (01) ==
LOC: RAD 10:11
PROVIDERS: PCP Family Medicine; Visit Provider Family Medicine
DX: E04.2 Nontoxic multinodular goiter (principal); Z12.31 Encounter for screening mammogram for malignant neoplasm of breast; Z87.891 Personal history of nicotine dependence; R59.0 Localized enlarged lymph nodes
CPT/HCPCS: 71271; 76536; 77063; 77067

== ENCOUNTER 2024-08-03 07:27 | Outpatient (CLI) | payer MEDICARE, MEDICAID, SELFPAY ==
--- NOTE | 2024-08-03 07:42 | US_ITS ---
FINAL REPORT CLINICAL HISTORY: .FNA RT THYROID--BRAYAN AG FINDINGS: Ultrasound guided thyroid biopsy. HISTORY: Thyroid mass. PROCEDURE: After informed consent was obtained and a time-out was performed, the patient was prepped and draped in usual sterile fashion over the anterior neck. Utilizing local anesthesia and sterile technique with a 25-gauge needle, access to the lesion was obtained. Four passes were made. The patient received no conscious sedation. The patient tolerated procedure well and left the department in good condition. IMPRESSION: Status post ultrasound guided biopsy of a thyroid nodule without immediate complication. Films reviewed , interpreted and dictated by Dr. Orozco Transcribed by Brayan Akers PA-C. Reviewed, Interpreted and Dictated by Arie Orozco III, MD Transcribed by KIMBERLI Ace Authenticated and [facility]
== END 2024-08-03 23:59 | disposition home or self-care (01) ==
LOC: RAD 07:29
PROVIDERS: PCP Family Medicine; Visit Provider Nurse Practitioner Family
DX: E04.1 Nontoxic single thyroid nodule (principal)
CPT/HCPCS: 76942

== ENCOUNTER 2024-08-14 15:54 | Outpatient (CLI) | payer MEDICARE, MEDICAID, SELFPAY ==
[2024-08-14 16:20] LABS: Appearance,Urine CLEAR (Clear); Bilirubin,Urine Negative (Negative); Color,Urine YELLOW (Yellow); Glucose,Urine (UA) 3+ (Negative); Ketones,Urine Negative (Negative); Urobilinogen,Urine 0.2 EU/dl (0.2)
[2024-08-14 16:24] LABS: White Blood Count 6.5 K/mm3 (4.8-10.8)
[2024-08-14 16:25] LABS: Basophils % 0.5 % (0.1-2.0); Eosinophils # 0.4 K/mm3 (0.0-0.4); Eosinophils % 5.7 % (0.1-12.0); Hematocrit 30.8 % (37.0-47.0); Hemoglobin 9.3 g/dL (12.2-16.2); Lymphocytes # 1.1 K/mm3 (0.7-4.5); Lymphocytes % 16.7 % (10-50); Mean Corpuscular HGB Conc 30.2 g/dL (31.8-35.4); Mean Corpuscular Hemoglobin 25.7 pg (27.0-31.2); Mean Corpuscular Volume 85.1 fl (81-99); Mean Platelet Volume 10.1 fl (7.4-10.4); Monocytes # 0.9 K/mm3 (0.1-1.0); Monocytes % 13.2 % (1.7-9.3); Neutrophils # 4.1 K/mm3 (1.8-7.8); Neutrophils % 63.6 % (37.0-80.0); Platelet Count 353 K/mm3 (142-424); Red Blood Count 3.62 M/mm3 (4.20-5.40); Red Cell Distribution Width 15.8 % (11.5-17.5)
[2024-08-14 16:29] LABS: Microscopic, Urine URINE MICROSCOPIC (MICROSCOPIC)
[2024-08-14 16:30] LABS: Bacteria,Urine 2+ /lpf; Blood, Urine 3+ (Negative); Leukocyte Esterase,Urine 2+ (Negative); Nitrate,Urine Negative (Negative); Protein,Urine 2+ (Negative); WBC,Urine 20-50 #/hpf (0-3)
[2024-08-14 16:56] LABS: Albumin Level 3.1 g/dl (3.5-5.0); Chloride 97 mmol/L (98-107); Sodium 131 mmol/L (136-145)
[2024-08-14 16:59] LABS: Alanine Aminotransferase 29 U/L (12-78); Alkaline Phosphatase 151 U/L (38-126); Aspartate Amino Transferase 30 U/L (14-36); Bilirubin,Total 0.2 mg/dl (0.2-1.3); Blood Urea Nitrogen 48 mg/dl (7-17); Carbon Dioxide 28 mmol/L (22.0-30.0); Estimated Glomerular Filt Rate 14 ml/min (>60); GFR (African American) 17 ML/MIN (>60); Globulin 3.1 g/dL (1.3-3.2); Glucose 323 mg/dl (74-100); Total Protein,Serum 6.2 g/dl (6.3-8.2)
== END 2024-08-14 23:59 | disposition home or self-care (01) ==
LOC: LAB.DROPOF 15:58
PROVIDERS: PCP Family Medicine; Visit Provider Family Medicine
DX: N30.00 Acute cystitis without hematuria (principal)
CPT/HCPCS: 80053; 81001; 85025; 87086

== ENCOUNTER 2024-08-14 18:47 | Emergency (ER) | payer MEDICARE, MEDICAID, SELFPAY ==
[2024-08-14 18:50] VITALS: BP 108/99; PULSE 94; RESP 18; TEMP 37.4; O2SAT 95; BMI 35.4
--- NOTE | 2024-08-14 19:08 | PC.NURSE ---
patient did not arrive via EMS until 1907
[2024-08-14 19:12] VITALS: BP 108/77; PULSE 89; O2SAT 95
[2024-08-14 19:22] VITALS: BP 113/89; PULSE 87; RESP 18; O2SAT 93
--- NOTE | 2024-08-14 19:25 | XR_ITS ---
PROCEDURE INFORMATION: Exam: XR Chest Exam date and time: 08/14/2024 7:48 PM Age: 64 years old Clinical indication: Shortness of breath; Additional info: AMS TECHNIQUE: Imaging protocol: Radiologic exam of the chest. Views: 1 view. COMPARISON: CT LUNG SCREENING 07/10/2024 10:54 AM FINDINGS: Lungs: Stable mild diffuse pulmonary vascular prominence. There has developed moderate stranding opacity in the right lung base and mild hazy opacity in the left lower lung. Mid to upper lungs are clear. Pleural spaces: Unremarkable. No pleural effusion. No pneumothorax. Heart/Mediastinum: Unremarkable. No cardiomegaly. Bones/joints: Right shoulder prosthesis remains in place. Moderate degenerative changes throughout the thoracic spine. No acute fracture. IMPRESSION: Moderate bibasilar infiltrate versus atelectasis
--- NOTE | 2024-08-14 19:25 | CT_ITS ---
PROCEDURE INFORMATION: Exam: CT Head Without Contrast Exam date and time: 08/14/2024 8:03 PM Age: 64 years old Clinical indication: Altered mental status/memory loss; Additional info: AMS TECHNIQUE: Imaging protocol: Computed tomography of the head without contrast. Radiation optimization: All CT scans at this facility use at least one of these dose optimization techniques: automated exposure control; mA and/or kV adjustment per patient size (includes targeted exams where dose is matched to clinical indication); or iterative reconstruction. COMPARISON: CT HEAD/BRAIN WO CON 12/09/2022 12:58 PM FINDINGS: Brain: Similar right occipital lobar encephalomalacia. Similar right frontoparietal vertex encephalomalacia and gliosis. Similar right periventricular lacunar infarct. Underlying periventricular white matter changes. No hemorrhage. No mass effect. Cerebral ventricles: No ventriculomegaly. Paranasal sinuses: Visualized sinuses are unremarkable. No fluid levels. Mastoid air cells: Visualized mastoid air cells are well aerated. Bones: Unremarkable. No acute fracture. Soft tissues: Unremarkable. IMPRESSION: No acute intracranial findings identified.
[2024-08-14 19:29] VITALS: BP 105/81; PULSE 95; O2SAT 95
--- NOTE | 2024-08-14 19:38 | HMH.EDGENADL ---
Discharge Plan Disposition Patient Disposition: Xfer Short-Term Hosp Condition: Good Prescriptions Prescriptions: No Action acetaminophen 500 mg tablet 500 mg PO Q6HP PRN (Reason: Mild Pain (Scale Score 1-4)) anastrozole 1 mg tablet 1 mg PO DAILY atorvastatin 40 mg tablet 40 mg PO DAILY carvedilol 12.5 mg tablet 12.5 mg PO BID calcitriol 0.25 mcg capsule 0.25 mcg PO DAILY aripiprazole 10 mg tablet 10 mg PO DAILY bumetanide 2 mg tablet 1 mg PO DAILY PRN (Reason: Shortness of breath, leg alvin, >3lbs wt gain) Rx Instructions: Started by [facility] diphenhydramine HCl [Allergy (diphenhydramine)] 25 mg tablet 25 mg PO BID PRN dextromethorphan-guaifenesin [Guaiasorb DM] 10-100 mg/5 mL liquid 10 ml PO Q4H PRN bumetanide 1 mg tablet 1 mg PO DAILY duloxetine 30 mg capsule,delayed release(DR/EC) 30 mg PO DAILY Rx Instructions: give with 60mg capsule for a total of 90mg daily duloxetine 60 mg capsule,delayed release(DR/EC) 60 mg PO DAILY Rx Instructions: give with 30mg capsule for a total of 90mg daily loperamide 2 mg capsule 2 mg PO Q4HP PRN (Reason: Diarrhea) pantoprazole [Protonix] 20 mg tablet,delayed release (DR/EC) 20 mg PO DAILY baclofen 10 mg tablet 10 mg PO TID azelastine 137 mcg (0.1 %) aerosol,spray 2 spray intranasal BID Qty: 30 3RF Rx Instructions: administer into each nostril ipratropium-albuterol 0.5 mg-3 mg(2.5 mg base)/3 mL solution for nebulization 3 ml inhalation Q6H PRN (Reason: shortness of breath) Qty: 180 0RF Rx Instructions: Started by [facility] physician ascorbic acid (vitamin C) [Vitamin C] 500 mg tablet 500 mg PO BID Jardiance 25 mg tablet 25 mg PO DAILY Qty: 90 3RF insulin aspart U-100 100 unit/mL (3 mL) insulin pen 1 sliding scale dose SQ BID Qty: 15 4RF Rx Instructions: High intensity BID pregabalin 50 mg capsule 50 mg PO BID Qty: 60 5RF insulin glargine [Basaglar KwikPen U-100 Insulin] 100 unit/mL (3 mL) insulin pen 50 unit SQ BID oxycodone-acetaminophen [Percocet] 5-325 mg tablet 1 tab PO BID PRN (Reason: Pain (Scale Score 7-10)) Qty: 60 0RF fentanyl 12 mcg/hr patch 72 hour 1 patch transdermal Q72H Qty: 10 0RF clopidogrel 75 MG tablet 75 mg PO DAILY multivitamin with minerals 1 EACH tablet 1 each PO DAILY ferrous sulfate [iron] 325 mg (65 mg iron) Tablet 325 mg PO DAILY ondansetron 4 mg Tablet,Disintegrating 4 mg PO Q6HP PRN (Reason: Nausea And Vomiting) trazodone 150 mg tablet 300 mg PO HS cyanocobalamin (vitamin B-12) [Vitamin B-12] 1,000 mcg Tablet 1,000 mcg PO DAILY fluticasone propionate 50 mcg/actuation Electra,Suspension 1 spray INTRANASAL BID Rx Instructions: administer into each nostril cholecalciferol (vitamin D3) [Vitamin D3] 25 mcg (1,000 unit) Tablet 25 mcg PO BID Xarelto 15 mg Tablet 15 mg PO DAILY fluticasone furoate-vilanterol [Breo Ellipta] 100-25 mcg/dose Blister With Device 1 inh INHALATION DAILY magnesium oxide 400 mg magnesium Tablet 400 mg PO BID Clinical Impressions Clinical Impression: Bilateral hydronephrosis, Fecal impaction, Altered mental status, Acute pyelitis Instructions Patient Instructions: DI for Altered Mental Status Print Language Print Language: Qatari Discharge ED Provider: Cayla Stevenson General Adult HPI General Chief complaint: Weakness Stated complaint: Altered Level of Consciousness Time Seen by Provider: 08/14/24 19:10 Mode of Arrival: EMS Source of Information: Patient and EMS Limitations: Altered Mental Status Description of Symptoms (Recalled from ER Triage Doc. by RN): Pt arrived via ems from [facility] for c/o weakness/low bp/painful urination. History of Present Illness HPI narrative: This patient is a 64-year-old female with a history of hypertension, hyperlipidemia, CHF, COPD, CAD, chronic respiratory failure, CKD, recurrent urinary tract infections, pulmonary nodules, and thyroid nodules presenting to the emergency department from skilled nursing for evaluation with concern for lethargy, altered mental status, low blood pressure, low O2 saturation, and painful urination. On my assessment of the patient, she is lying in bed in no acute distress. She is very sleepy but responds to voice. She denies any specific concerns or complaints at this time. She is not sure why she was sent here but is oriented to person, place, and time. EMS arrived with the patient and noted that she had fluctuating O2 saturations en route but otherwise vitals are reassuring on cardiac telemetry. Per EMS, she was anywhere from 87-94% on RA so they placed her on 3L NC. They note per their report she is not on home O2. Per medical record review, she has been on 3L NC in the past. I tried to call [facility] with no answer. Related Data Home Medications ?Medication ?Instructions ?Recorded ?Confirmed acetaminophen 500 mg tablet 500 mg PO Q6HP PRN Mild Pain 02/28/18 07/24/24 (Scale Score 1-4) anastrozole 1 mg tablet 1 mg PO DAILY breast cancer 02/28/18 07/24/24 atorvastatin 40 mg tablet 40 mg PO DAILY Cholesterol 02/28/18 07/24/24 carvedilol 12.5 mg tablet 12.5 mg PO BID Hypertension 02/28/18 07/24/24 loperamide 2 mg capsule 2 mg PO Q4HP PRN Diarrhea 07/11/18 07/24/24 baclofen 10 mg tablet 10 mg PO TID muscle spasms 04/11/19 07/24/24 pantoprazole 20 mg tablet,delayed 20 mg PO DAILY GERD 04/11/19 07/24/24 release (Protonix) clopidogrel 75 mg tablet 75 mg PO DAILY 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 02/04/20 07/24/24 multivitamin with minerals 1 each PO DAILY Supplement 05/06/21 07/24/24 ferrous sulfate 325 mg (65 mg 325 mg PO DAILY Supplement 07/28/22 07/24/24 iron) tablet (iron) ondansetron 4 mg disintegrating 4 mg PO Q6HP PRN Nausea And 07/28/22 07/24/24 tablet Vomiting trazodone 150 mg tablet 300 mg PO HS SLEEP 07/28/22 07/24/24 cholecalciferol (vitamin D3) 25 25 mcg PO BID 10/04/23 07/24/24 mcg (1,000 unit) tablet (Vitamin D3) cyanocobalamin (vitamin B-12) 1,000 mcg PO DAILY 10/04/23 07/24/24 1,000 mcg tablet (Vitamin B-12) fluticasone furoate 100 1 inh inhalation DAILY 10/04/23 07/24/24 mcg-vilanterol 25 mcg/dose inhalation powder (Breo Ellipta) fluticasone propionate 50 1 spray intranasal BID 10/04/23 07/24/24 mcg/actuation nasal spray,suspension magnesium oxide 400 mg PO BID 10/04/23 07/24/24 rivaroxaban 15 mg tablet (Xarelto) 15 mg PO DAILY 10/04/23 07/24/24 ascorbic acid (vitamin C) 500 mg 500 mg PO BID Supplement 10/16/23 07/24/24 tablet (Vitamin C) aripiprazole 10 mg tablet 10 mg PO DAILY 03/19/24 07/24/24 calcitriol 0.25 mcg capsule 0.25 mcg PO DAILY 03/19/24 07/24/24 insulin glargine 100 unit/mL (3 50 unit SQ BID 07/10/24 07/24/24 mL) subcutaneous pen (TransBioTecaglar LilianPen U-100 Insulin) bumetanide 1 mg tablet 1 mg PO DAILY 07/24/24 07/24/24 bumetanide 2 mg tablet 1 mg PO DAILY PRN Shortness of 07/24/24 07/24/24 breath, leg alvin, >3lbs wt gain dextromethorphan-guaifenesin 10 10 ml PO Q4H PRN 07/24/24 07/24/24 mg-100 mg/5 mL oral liquid (Guaiasorb DM) diphenhydramine HCl 25 mg tablet 25 mg PO BID PRN 07/24/24 07/24/24 (Allergy (diphenhydramine)) duloxetine 30 mg capsule,delayed 30 mg PO DAILY 07/24/24 07/24/24 release duloxetine 60 mg capsule,delayed 60 mg PO DAILY 07/24/24 07/24/24 release Previous Rx's ?Medication ?Instructions ?Recorded azelastine 137 mcg (0.1 %) nasal 2 spray intranasal BID allergy 09/13/23 spray symptoms #30 mL ipratropium 0.5 mg-albuterol 3 mg 3 ml inhalation Q6H PRN shortness 10/16/23 (2.5 mg base)/3 mL nebulization of breath #180 mL soln empagliflozin 25 mg tablet 25 mg PO DAILY #90 tabs 04/10/24 (Jardiance) insulin aspart U-100 100 unit/mL 1 sliding scale dose SQ BID #15 mL 04/10/24 (3 mL) subcutaneous pen pregabalin 50 mg capsule 50 mg PO BID nerve pain #60 caps 06/14/24 oxycodone-acetaminophen 5 mg-325 1 tab PO BID PRN Pain (Scale Score 07/17/24 mg tablet (Percocet) 7-10) #60 tabs fentanyl 12 mcg/hr transdermal 1 patch transdermal Q72H #10 07/21/24 patch patches Allergies Allergy/AdvReac Type Severity Reaction Status Date / Time bupropion (From WELLBUTRIN) Allergy Unknown Unknown Verified 08/14/24 19:24 allergy reaction hydrocodone (From LORTAB) Allergy Unknown Unknown Verified 08/14/24 19:24 allergy reaction Sulfa (Sulfonamide Allergy Unknown Unknown Verified 08/14/24 19:24 Antibiotics) (SULFA allergy (SULFONAMIDE ANTIBIOTICS)) reaction tramadol (From ULTRAM) Allergy Unknown Unknown Verified 08/14/24 19:24 allergy reaction SURGICAL TAPE Allergy Unknown Unknown Uncoded 08/14/24 19:24 allergy reaction PFSH PFSH Disclaimer: The information contained in this section may have been updated after the patient was seen, as this information can be updated by other users. 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, left Menopausal vasomotor syndrome Otogenic otalgia of right ear Otogenic otalgia of left ear Fibromyalgia, primary Gastro-esophageal reflux disease without esophagitis 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[place] coronary artery without angina pectoris Other idiopathic peripheral autonomic neuropathy Chronic pain syndrome Anxiety disorder, unspecified Major depressive disorder, recurrent, unspecified Hypertensive heart disease without heart failure Need for assistance at home and no other household member able to render care Age-related osteoporosis without current pathological fracture Trochanteric bursitis, right hip Unilateral primary osteoarthritis, right hip Obstructive sleep apnea (adult) (pediatric) Unspecified diastolic (congestive) heart failure Iron deficiency anemia secondary to blood loss (chronic) Right carotid artery occlusion BMI 39.0-39.9,adult Biventricular CHF (congestive heart failure) PVC (premature ventricular contraction) Edema Chronic hypoxemic respiratory failure Stopped smoking with greater than 30 pack year history ARA and COPD overlap syndrome Acute respiratory failure with hypoxia and hypercapnia CHF exacerbation History of smoking 30 or more pack years Foot pain History of breast cancer Abnormal ECG COPD (chronic obstructive pulmonary disease) CVA (cerebral vascular accident) CAD (coronary artery disease) Surgical History Status post left knee replacement History of total left knee replacement History of right mastectomy History of CEA (carotid endarterectomy) Family History Other Black lung disease Diabetes Hypertension Social History Smoking Status: Never smoker smoking status stop date: 06/2022 alcohol intake: never substance use type: denies use current occupational status: disabled Travel in the last 8 weeks: None household members: other housing: skilled nursing caffeine: Yes Other 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 Have you received the Flu Vaccine for this season: No Have you received the Pneumonia Vaccine: Yes (06/29/19) ROS Obtained: Yes All systems reviewed & no additional complaints except as documented Physical Exam General General appearance: alert and obese Comment: tired appearing but arouses to voice. Obesity hypoventilation Head Head exam: atraumatic and normocephalic Eye Eye exam: Present normal appearance, PERRL and EOMI ENT ENT exam: Present mucous membranes dry and normal external ear exam Neck Neck exam: Present normal inspection, full ROM and trachea midline; Absent tenderness Chest Chest inspection: Present normal inspection and symmetric chest wall rise; Absent tenderness Respiratory Respiratory exam: Present normal lung sounds bilaterally; Absent respiratory distress, wheezes, stridor or accessory muscle use Cardiovascular Cardiovascular exam: Present regular rate and normal rhythm Abdominal Exam Abdominal exam: Present soft; Absent distention, tenderness or guarding Extremities Exam Extremities exam: Present normal inspection, full ROM and normal capillary refill; Absent tenderness or edema Back Exam Back exam: Present normal inspection and full ROM; Absent tenderness Neurological Exam Neurological exam: Present alert, oriented X3, CN II-XII intact and normal gait; Absent motor sensory deficit Skin Skin exam: Present warm and dry Medical Decision Making Medical Records Medical records reviewed: Yes I reviewed the patient's medical records. Screening: Per USPSTF and CDC recommendations, given the prevalence of disease in our region, it is our hospital?s policy to screen for HIV and viral Hepatitis for all patients aged 18 and over and those with ongoing risk factors. Jordi Inquiry Pt receiving controlled substance: No Vital Signs: 08/14/24 18:50 08/14/24 19:12 08/14/24 19:22 Temperature 99.3 F Temperature Source Oral Pulse Rate 89 87 Pulse Rate [Apical] 94 H Respiratory Rate 18 18 Blood Pressure 108/77 L 113/89 Blood Pressure [Right Arm] 108/99 L Blood Pressure Mean [Right Arm] 102 02 Sat by Pulse Oximetry 95 95 93 L Oxygen Delivery Method Nasal Cannula Nasal Cannula Oxygen Flow Rate (LPM) 3 3 08/14/24 19:29 08/14/24 20:30 08/14/24 21:00 Temperature Temperature Source Pulse Rate 95 H 78 80 Pulse Rate [Apical] Respiratory Rate Blood Pressure 105/81 L 105/75 L 113/89 Blood Pressure [Right Arm] Blood Pressure Mean [Right Arm] 02 Sat by Pulse Oximetry 95 92 L 96 Oxygen Delivery Method Oxygen Flow Rate (LPM) Lab Data Lab results reviewed: Yes I reviewed the patient's lab results. Lab Results 08/14/24 19:25: VBG pH 7.33, VBG pCO2 49.5, VBG pO2 133.0 H, VBG HCO3 25.7, VBG Total CO2 27.3 H, VBG O2 Saturation 98.4 H, VBG Base Excess -0.1, VBG Lactic Acid 2.4 H 08/14/24 19:33: HIV Ag/Ab Combo Qual Negative 08/14/24 19:37: WBC 6.8, RBC 3.60 L, Hgb 9.2 L, Hct 30.0 L, MCV 83.3, MCH 25.6 L, MCHC 30.7 L, RDW 15.7, Plt Count 363, MPV 9.8, Neut % (Auto) 64.4, Lymph % (Auto) 15.1, [place] % (Auto) 13.5 H, Eos % (Auto) 6.0, Baso % (Auto) 0.6, Neut # (Auto) 4.4, Lymph # (Auto) 1.0, [place] # (Auto) 0.9, Eos # (Auto) 0.4, Baso # (Auto) 0.0, Sodium 134 L, Potassium 4.6, Chloride 99, Carbon Dioxide 28, Anion Gap 11.6, BUN 51 H, Creatinine 3.10 H, Estimated Creat Clear 26, Estimated GFR 15 L*, Est GFR ( Amer) 18 L*, Glucose 249 H D, Calcium 9.3, Total Bilirubin 0.3, AST 30, ALT 29, Alkaline Phosphatase 148 H, Troponin I < 0.01, C-Reactive Protein 78.6 H, NT-Pro-B Natriuret Pep 574 H, Total Protein 7.0, Albumin 3.4 L, Globulin 3.6 H, Albumin/Globulin Ratio 0.9 L, Procalcitonin 0.401, TSH 1.20, Thyroxine (T4) 7.9 08/14/24 19:42: Lactate 1.2 08/14/24 19:55: Urine Color Yellow, Urine Appearance Clear, Urine pH 6.0, Ur Specific [place] 1.020, Urine Protein 2+ A, Urine Glucose (UA) 3+, Urine Ketones Negative, Urine Blood 3+ A, Urine Nitrate Negative, Urine Bilirubin Negative, Urine Urobilinogen 0.2, Ur Leukocyte Esterase 2+ A, Urine RBC 5-10, Urine WBC 3-5, Ur Squamous Epith Cells 5-10, Urine Bacteria Trace 08/14/24 19:37 08/14/24 19:37 Orders (Tests/Meds): ED MEDICATIONS Discontinued Medications Generic Name Dose Route Start Last Admin Trade Name Freq PRN Reason Stop Dose Admin Sodium Chloride 1,000 mls @ 999 mls/hr 08/14/24 20:24 08/14/24 20:31 Sod Chlor 0.9% 1000ml Bag IV 08/14/24 21:24 999 mls/hr .Q1H1M ONE Administration Ceftriaxone Sodium 2 gm/ 100 mls @ 200 mls/hr 08/14/24 20:58 08/14/24 21:01 Sodium Chloride IV 08/14/24 21:27 200 mls/hr ONCE ONE Administration ORDERS Category Date Time Status CT abdomen pelvis wo con Stat Cat Scan 08/14/24 20:[address] head/brain wo con Stat Cat Scan 08/14/24 19:25 Completed CXR --portable [XR chest portable] Stat Exams 08/14/24 19:25 Completed BNP [NT Pro Brain Natriuretic Pep.] Stat Lab 08/14/24 19:37 Completed CRP [C-Reactive Protein] Stat Lab 08/14/24 19:37 Completed Complete Blood Count Auto Diff Stat Lab 08/14/24 19:37 Completed Comprehensive Metabolic Panel Stat Lab 08/14/24 19:37 Completed HIV Combo Stat Lab 08/14/24 19:33 Completed Hep C Ab with Reflex to RNA Stat Lab 08/14/24 19:33 Received Lactic Acid Stat Lab 08/14/24 19:42 Completed Procalcitonin Stat Lab 08/14/24 19:37 Completed Rapid PCR Covid and Flu A/B Stat Lab 08/14/24 19:37 Received T4 (Thyroxine) Stat Lab 08/14/24 19:37 Completed TSH [Thyroid Stimulating Hormone] Stat Lab 08/14/24 19:37 Completed Trop I [Troponin I] Stat Lab 08/14/24 19:37 Completed Troponin I Q3H Lab 08/14/24 22:48 Received Troponin I Q3H Lab 08/15/24 01:30 Ordered UA [Urinalysis and Microscopic] Stat Lab 08/14/24 19:55 Completed Blood Culture Stat Micro 08/14/24 22:05 Received VBG [Venous Blood Gas] Stat RT 08/14/24 19:25 Completed Medical Decision Narrative: In summary, this patient is a 64-year-old female presenting to the Emergency Department for evaluation of altered mental status, fluctuating blood pressure, fluctuating O2 saturation and nursing facility. She reportedly had some urinary symptoms as well. Differential diagnoses considered include but are not limited to UTI, GEOVANNI, CHF, CO2 narcosis, pneumonia, sepsis. Ruling out the most morbid conditions drove assessment. It should be noted patient's history includes hypertension, hyperlipidemia, CAD, CHF, CVA, CKD, recurrent UTIs which may or may not be at goal therapy. This complicates all aspects of care by increasing patient's risk for morbidity. I reviewed patient's past medical records and noted prior admission back in September for GEOVANNI. Also noted prior evaluations for related to CHF and that the patient was previously on 3 L nasal cannula, though EMS did not note any baseline O2 requirement. On exam, the patient is lying in bed. She is tired appearing but arouses easily to voice. She is alert and oriented to person, place, time, but not entirely to situation, as she is not sure what she was here. She denies any specific concerns or complaints currently with no focal neurologic deficits. Cardiopulmonary and abdominal exams are benign. Workup included broad lab evaluation to evaluate for infectious, metabolic, cardiac causes of potential altered mental status and lethargy. I independently interpreted CT scan of the head without contrast and chest x-ray prior to the radiologist read and noted obvious acute intracranial hemorrhage or space-occupying lesion and no obvious large focal consolidation concerning for pneumonia. Please see their read for final interpretation. I looked at the patient's outpatient labs which were concerning for a urinary tract infection but the urine specimen was grossly contaminated with squamous cells. We did send a cath urine specimen here which is 5-10 squamous cells but is still 2+ positive for leukocyte esterase, 5-10 red blood cells, 3-5 white blood cells. Patient also has an GEOVANNI with a creatinine of 3.3 up from a baseline of around 1.8-1.9 but I do not have labs for comparison since February. She also has hyponatremia with a sodium of 131. Patient does not have significant leukocytosis. She has stable anemia. Given GEOVANNI with concerning urine, I did order CT scan of the abdomen pelvis without IV contrast. This is concerning for bilateral hydronephrosis. Radiology notes concern for fecal impaction as well and pyelitis/ureteritis. I did give the patient a bolus of IV fluids and send blood cultures. Patient was also given IV Rocephin. I did not give sepsis bolus of IV fluids, as the patient has history of heart failure and I feel fluids could be detrimental to her. We did a fecal disimpaction as well as give the patient an enema with good results. She did have a good bowel movement. Ultimately, feel the patient would benefit from admission with concern for urinary tract infection, GEOVANNI, fecal impaction. I had an interactive discussion with the hospitalist who feels the patient would benefit from transfer to higher level of care with urology given the severity of her urinary tract infection on CT scan. Given this, I called and had an interactive discussion with Dr. Zavala at who accepted the patient for transfer to [facility]. EMS transport was arranged, and the patient was transferred in stable condition. Critical Care Critical Care Time Critical Care Time: Yes Attestation: On 08/14/24, the high probability of a clinically significant, sudden or life threatening deterioration of the following system(s) required my full and direct attention, intervention and personal management. The time I documented below is in addition to time spent performing reported procedures but includes the following listed in this critical care notation. Total Time Total Critical Care Time: 45
[2024-08-14 19:41] LABS: Coronavirus 19, PCR Not Detected (NotDetected); Influenza A, PCR Not Detected (NotDetected); Influenza B, PCR Not Detected (NotDetected)
[2024-08-14 19:51] LABS: White Blood Count 6.8 K/mm3 (4.8-10.8)
[2024-08-14 19:52] LABS: Albumin Level 3.4 g/dl (3.5-5.0); Chloride 99 mmol/L (98-107); Hemoglobin 9.2 g/dL (12.2-16.2); Mean Corpuscular HGB Conc 30.7 g/dL (31.8-35.4); Mean Corpuscular Hemoglobin 25.6 pg (27.0-31.2); Mean Corpuscular Volume 83.3 fl (81-99); Potassium 4.6 mmoL/L (3.5-5.1); Red Cell Distribution Width 15.7 % (11.5-17.5); Sodium 134 mmol/L (136-145)
[2024-08-14 19:53] LABS: Basophils % 0.6 % (0.1-2.0); Eosinophils # 0.4 K/mm3 (0.0-0.4); Lymphocytes % 15.1 % (10-50); Mean Platelet Volume 9.8 fl (7.4-10.4); Monocytes # 0.9 K/mm3 (0.1-1.0); Monocytes % 13.5 % (1.7-9.3); Neutrophils # 4.4 K/mm3 (1.8-7.8); Neutrophils % 64.4 % (37.0-80.0); Platelet Count 363 K/mm3 (142-424)
[2024-08-14 19:55] LABS: Alanine Aminotransferase 29 U/L (12-78); Albumin/Globulin Ratio 0.9 (1.1-1.8); Alkaline Phosphatase 148 U/L (38-126); Anion Gap 11.6 mEq/L (5-15); Aspartate Amino Transferase 30 U/L (14-36); Bilirubin,Total 0.3 mg/dl (0.2-1.3); Blood Urea Nitrogen 51 mg/dl (7-17); Carbon Dioxide 28 mmol/L (22.0-30.0); Creatinine Clearance Estimated 26 mL/min (50-200); Estimated Glomerular Filt Rate 15 ml/min (>60); GFR (African American) 18 ML/MIN (>60); Globulin 3.6 g/dL (1.3-3.2)
[2024-08-14 19:56] LABS: Calcium 9.3 mg/dl (8.4-10.2); Glucose 249 mg/dl (74-100)
[2024-08-14 19:57] LABS: VBG Base Excess -0.1 mmol/L (-2.4-2.3); VBG HCO3 25.7 mmol/L (23-30); VBG Oxygen Saturation 98.4 % (50-70); VBG PCO2 49.5 mmol/L (35-51); VBG PH 7.33 mmol/L (7.31-7.41); VBG Total CO2 27.3 mmol/L (23-27)
[2024-08-14 19:57] LABS: Microscopic, Urine URINE MICROSCOPIC (MICROSCOPIC)
[2024-08-14 19:58] LABS: Lactate Venous 2.4 mmol/L (0.4-2.0)
[2024-08-14 20:01] LABS: Appearance,Urine CLEAR (Clear); Bacteria,Urine Trace /lpf; Bilirubin,Urine Negative (Negative); Blood, Urine 3+ (Negative); Color,Urine YELLOW (Yellow); Glucose,Urine (UA) 3+ (Negative); Ketones,Urine Negative (Negative); Leukocyte Esterase,Urine 2+ (Negative); Nitrate,Urine Negative (Negative); Protein,Urine 2+ (Negative); Urobilinogen,Urine 0.2 EU/dl (0.2)
[2024-08-14 20:07] LABS: C-Reactive Protein 78.6 mg/L (0-4)
--- NOTE | 2024-08-14 20:08 | CT_ITS ---
PROCEDURE INFORMATION: Exam: CT Abdomen And Pelvis Without Contrast Exam date and time: 08/14/2024 8:23 PM Age: 64 years old Clinical indication: Other: [place] TECHNIQUE: Imaging protocol: Computed tomography of the abdomen and pelvis without contrast. Radiation optimization: All CT scans at this facility use at least one of these dose optimization techniques: automated exposure control; mA and/or kV adjustment per patient size (includes targeted exams where dose is matched to clinical indication); or iterative reconstruction. COMPARISON: CR XR HIP RT 2-3V W/PELVIS 10/31/2020 1:15 PM FINDINGS: Liver: Normal. No mass. Gallbladder and biliary ducts: Normal. No calcified stones. No ductal dilation. Pancreas: Normal. No ductal dilation. Spleen: Normal. No splenomegaly. Adrenal glands: Normal. No mass. Kidneys and ureters: Moderate bilateral hydroureteronephrosis, greater on the right. Diffuse periureteral and peripelvic fatty stranding, greater on the right. Multiple small intrarenal calcifications are noted. No evidence of ureteral stone. Stomach and bowel: Moderate fecal retention in the distal rectosigmoid colon. No evidence of bowel obstruction. Appendix: No evidence of appendicitis. Intraperitoneal space: Unremarkable. No free air. No significant fluid collection. Vasculature: Moderate diffuse atherosclerotic calcification of the aorta and iliac arteries. No aneurysm. Lymph nodes: Unremarkable. No enlarged lymph nodes. Urinary bladder: There is diffuse bladder wall thickening with surrounding fatty stranding. No focal mass lesion evident. Reproductive: Unremarkable as visualized. Bones/joints: Moderate degenerative changes throughout the lower spine. No vertebral body compression. No acute fracture. Soft tissues: Unremarkable. IMPRESSION: 1. Significant findings of diffuse urinary tract infection including cystitis as well as bilateral pyelitis/ureteritis. 2. Rectosigmoid constipation
[2024-08-14 20:19] LABS: NT Pro Brain Natriuretic Pep. 574 pg/mL (0-125)
[2024-08-14 20:21] LABS: Lactic Acid 1.2 mmol/L (0.7-2.1)
[2024-08-14 20:22] LABS: Troponin I < 0.01 ng/ml (0.00-0.034)
[2024-08-14 20:25] LABS: Procalcitonin 0.401 ng/mL (0.0-2.0)
[2024-08-14 20:26] LABS: T4 (Thyroxine) 7.9 ug/dl (5.53-11.0)
[2024-08-14 20:30] VITALS: BP 105/75; PULSE 78; O2SAT 92
[2024-08-14] MEDS: 0.9 % SODIUM CHLORIDE 1000ML 1,000 ML 999 ML IV (20:31)
[2024-08-14 21:00] VITALS: BP 113/89; PULSE 80; O2SAT 96
[2024-08-14] MEDS: CEFTRIAXONE SODIUM 2 GM in 0.9 % SODIUM CHLORIDE 100 ML IV (21:01)
[2024-08-14 21:09] LABS: HIV Combo NEGATIVE (Negative)
--- NOTE | 2024-08-14 21:51 | PC.NURSE ---
Soap suds enema given after disimpaction. succuessful results. provider aware
[2024-08-14 23:16] LABS: Troponin I < 0.01 ng/ml (0.00-0.034)
[2024-08-14 23:59] LABS: Reflex Lactic Add Lactic Reflex
[2024-08-15 00:23] VITALS: BP 115/91; PULSE 78; RESP 18; TEMP 36.6; O2SAT 96
[2024-08-15 01:32] LABS: Troponin I < 0.01 ng/ml (0.00-0.034)
--- NOTE | 2024-08-15 19:47 | ECG_ITS ---
APPROVED REPORT Exam: Resting ECG HR:79 bpm ECG Measurements Heart Rate 79 AXES AL 195 P 66 QRSd 138 QRS -76 QT 404 T 52 QTc 439 Conclusion SINUS RHYTHM INDETERMINATE AXIS RIGHT BUNDLE BRANCH BLOCK [120+ ms QRS DURATION, UPRIGHT V1, 40+ ms S IN I/aVL/V4/V5/V6] No STEMI Electronically signed by : TABITHA VERGARA, 08/15/2024 06:19:44
[2024-08-17 07:08] LABS: HCV Ab Non Reactive (Non Reactive)
== END 2024-08-15 02:38 | disposition short-term general hospital (02) ==
PROVIDERS: Emergency Provider Emergency Medicine
DX: N13.30 Unspecified hydronephrosis (principal); R41.82 Altered mental status, unspecified; R09.02 Hypoxemia; R53.83 Other fatigue; R30.9 Painful micturition, unspecified; I95.9 Hypotension, unspecified; R53.1 Weakness
CPT/HCPCS: 70450; 71045; 74176; 80053; 81001; 82803; 83605; 83880; 84145; 84436; 84443; 84484; 85025; 86140; 86803; 87040; 87086; 87389; 87636; 93005; 96361; 96365; 99291; J0696; J7030

== ENCOUNTER 2024-10-08 16:17 | Outpatient (CLI) | payer MEDICARE, MEDICAID, SELFPAY ==
[2024-10-08 16:45] LABS: Appearance,Urine CLOUDY (Clear); Bilirubin,Urine Negative (Negative); Blood, Urine 3+ (Negative); Color,Urine YELLOW (Yellow); Glucose,Urine (UA) Negative (Negative); Ketones,Urine Negative (Negative); Leukocyte Esterase,Urine 3+ (Negative); Nitrate,Urine NEGATIVE (Negative); PH,Urine 6.5 (5.0-8.5); Protein,Urine 1+ (Negative); Urobilinogen,Urine 0.2 EU/dl (0.2)
[2024-10-08 17:08] LABS: Microscopic, Urine URINE MICROSCOPIC (MICROSCOPIC)
[2024-10-08 17:39] LABS: Creatinine,Urine Random 45 mg/dL (Not Estab.)
[2024-10-08 18:36] LABS: Squamous Epithelial Cell,Urine Occasional #/hpf (0-5); WBC,Urine TNTC #/hpf (0-3)
[2024-10-08 18:37] LABS: Bacteria,Urine 4+ /lpf
== END 2024-10-08 23:59 | disposition home or self-care (01) ==
LOC: LAB.DROPOF 16:19
PROVIDERS: PCP Family Medicine; Visit Provider Family Medicine
DX: N39.0 Urinary tract infection, site not specified (principal); B96.1 Klebsiella pneumoniae [K. pneumoniae] as the cause of diseases classified elsewhere; B96.4 Proteus (mirabilis) (morganii) as the cause of diseases classified elsewhere
CPT/HCPCS: 81003; 81015; 82570; 84156; 87086; 87186

== ENCOUNTER 2024-10-19 13:27 | Outpatient (CLI) | payer MEDICARE, MEDICAID, SELFPAY ==
--- NOTE | 2024-10-19 13:30 | US_ITS ---
PROCEDURE: US PELVIC CLINICAL INDICATION: post menopausal bleeding COMPARISON: CT CT ABDOMEN PELVIS WO CON from 08/14/2024 FINDINGS: Transabdominal sonographic images of the pelvis were obtained. UTERUS: 7.4cm x 4.0cmx 2.2cm anteverted with a combined endometrial thickness of 2.1 mm. The endometrium is thin and there is a small amount of fluid within the endometrial cavity and lower uterine segment. LEFT OVARY: 3.2cmx2.9 cmx2.4cm with a volume of 11.6ml. RIGHT OVARY: The right ovary was not visualized. The left ovary is seen and appears normal. Doppler flow to left ovary is seen. There is no fluid in the cul-de-sac. IMPRESSION: 1. Anteverted uterus normal in shape and size. The endometrium is thin measuring 2.1 mm. There is fluid in the endometrial cavity and lower uterine segment. 2. The left ovary is seen and appears normal and atrophic. 3. The right ovary is not visualized. 4. No fluid in the cul-de-sac. 5. The field agent noted that the bladder wall is markedly thickened and there is sediment in the lower. Dictated by: Flaquito Sawant MD 10/20/2024 09:56 Flaquito Sawant MD in [place] 10/20/2024 09:56
== END 2024-10-19 23:59 | disposition home or self-care (01) ==
LOC: RAD 13:30
PROVIDERS: PCP Family Medicine; Visit Provider Nurse Practitioner Obstetrics & Gynecology
DX: N95.0 Postmenopausal bleeding (principal)
CPT/HCPCS: 76856

== ENCOUNTER 2024-11-22 12:28 | Outpatient (CLI) | payer MEDICARE, MEDICAID, SELFPAY ==
[2024-11-22 12:35] LABS: Microscopic, Urine URINE MICROSCOPIC (MICROSCOPIC)
[2024-11-22 13:32] LABS: Appearance,Urine Turbid (Clear); Color,Urine Red (Yellow); Glucose,Urine (UA) Negative (Negative); Ketones,Urine Negative (Negative); Protein,Urine 3+ (Negative)
[2024-11-22 13:33] LABS: Bilirubin,Urine Negative (Negative); Blood, Urine 4+ (Negative); Leukocyte Esterase,Urine 3+ (Negative); Nitrate,Urine POSITIVE (Negative); Urobilinogen,Urine 0.2 EU/dl (0.2)
== END 2024-11-22 23:59 | disposition home or self-care (01) ==
LOC: LAB.DROPOF 12:30
PROVIDERS: PCP Family Medicine; Visit Provider Nurse Practitioner Family
DX: R10.2 Pelvic and perineal pain (principal)
CPT/HCPCS: 81001; 87086; 87088; 87186

== ENCOUNTER 2024-12-12 07:16 | Outpatient (CLI) | payer MEDICARE, MEDICAID, SELFPAY ==
--- OUTSIDE RECORDS SUMMARY | 2024-12-12 07:19 | XMS_ITS ---
Author Organization [facility] , [facility] Address [address] [place] [phone] Phone Care Team Providers Care Grinder Chipper Name Role Phone Nelly BENSON, Fabricio Orosco Unavailable [phone] Problems Includes: Active, inactive, and resolved Problems All Visits Onset Date Resolved Date Provider Condition S tatus Joint Pain in the Left Knee 01/20/2023 Fabricio Villegas MD Active Last Documented On 3 7:34AM ; [facility], [facility] Plan of Treatment No Plan of Treatment Recorded Assessments Includes: Assessments for all patient encounters No Assessments Recorded Medical Equipment - Implanted Devices Includes: Current and historical Devices No Medical Equipment Recorded Medications Administered Includes: Administered Medications in patient's chart No Administered Medications Recorded Results Includes: Results from 12/13/2023 through 12/12/2024 No Results Recorded For Specified Dates History of Present Illness History of Present Illness not supported for this document type No History of Present Illness Recorded Social History No Social History Recorded - Smoking Status Unknown 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 Includes: 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 in patient's chart No 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 Recorded Family History Includes: Family History in patient's chart No Family History Recorded Review of Systems Review of Systems not supported for this document type No Review of Systems Recorded Mental Status No Mental Status Recorded Functional Status No Functional Status Recorded Physical Exam Physical Exam not supported for this document type No Physical Exam Recorded Allergies Includes: Active, inactive, and resolved Allergies Substance Type Reaction Onset Date Resolved Date Statu s traMADol HCl Allergy 01/21/2023 Active Last Documented On 3 7:34AM ; [facility], [facility] Lortab 2.5 Allergy 01/21/2023 Active Last Documented On 3 7:34AM ; [facility], [facility] Insurance Includes: Active Insurance Policies Plan Name Member ID Group # Subscriber Relationship Effect qiana Dates 1 - Medicare Part B [facility] [id number] Eileen Dong 2 - [facility] [id number] Eileen Dong Clinical Notes Includes: Signed Clinical Notes starting from 08/05/2022 No Clinical Notes Recorded
--- OUTSIDE RECORDS SUMMARY | 2024-12-12 07:19 | XMS_ITS ---
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
--- OUTSIDE RECORDS SUMMARY | 2024-12-12 07:19 | XMS_ITS | Clinical Summary ---
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 Name Role Phone Nelly BENSON, Fabricio Orosco Unavailable [phone] Reason for Visit and Chief Complaint [Patient Encounter] Problems Includes: Problems addressed during this encounter and other active Problems Current Visit Onset Date Resolved Date Provider Corinne weathers Status Joint Pain in the Left Knee 01/20/2023 Fabricio Villegas MD Active Last Documented On 3 7:34AM ; [facility] Plan of Treatment No Plan of Treatment Recorded Assessments Includes: Assessments from this encounter No Assessments Recorded Medical Equipment - Implanted Devices Includes: Current Devices No Medical Equipment Recorded Medications Administered Includes: Administered Medications from this encounter No Administered Medications Recorded Results Includes: Results discussed during this encounter No Results Recorded For Specified Dates History of Present Illness Includes: History of Present Illness from this encounter No History of Present Illness Recorded Social History No Social History Recorded - Smoking Status Unknown 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 Includes: 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 addressed during this encounter No 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 Recorded Family History Includes: Family History addressed during this encounter No Family History Recorded Review of Systems Includes: Review of Systems from this encounter No Review of Systems Recorded Mental Status Includes: Mental Status from this encounter No Mental Status Recorded Functional Status Includes: Functional Status from this encounter No Functional Status Recorded Physical Exam Includes: Physical Exam from this encounter No Physical Exam Recorded Allergies Includes: Active Allergies Substance Type Reaction Onset Date Resolved Date Statu s traMADol HCl Allergy 01/21/2023 Active Last Documented On 3 7:34AM ; [facility] Lortab 2.5 Allergy 01/21/2023 Active Last Documented On 3 7:34AM ; [facility] Encounters Encounter Provider Location Date Check-In Time Check-Out Time Diagnosis [Patient Encounter] Fabricio Villegas MD 01/20/2023 7:34AM 11:59PM Insurance Includes: Active Insurance Policies Plan Name Member ID Group # Subscriber Relationship Effect qiana Dates 1 - Medicare Part B [facility] [id number] Eileen Dong 2 - [facility] [employer] [facility] [id number] Eileen Dong Clinical Notes Includes: Clinical Notes from this encounter No Clinical Notes Recorded
[2024-12-12 07:56] LABS: Cholesterol 106 mg/dl (140-200); Triglycerides 154 mg/dl (30-150); VLDL Cholesterol 31 mg/dL (0-40)
[2024-12-12 07:57] LABS: Chol/HDL Ratio 3.1 (1-3.5); HDL Cholesterol 34 mg/dl (40-60)
[2024-12-12 08:07] LABS: Direct LDL Cholesterol 36.92 mg/dL (100-129)
== END 2024-12-12 23:59 | disposition home or self-care (01) ==
PROVIDERS: PCP Nurse Practitioner Family; Visit Provider Nurse Practitioner Family
DX: E78.5 Hyperlipidemia, unspecified (principal)
CPT/HCPCS: 36415; 80061

== ENCOUNTER 2025-01-09 10:55 | Outpatient (CLI) | payer MEDICARE, MEDICAID, SELFPAY ==
--- NOTE | 2025-01-09 11:00 | CT_ITS ---
FINAL REPORT CLINICAL HISTORY: lung cancer screening former smoker x 1 year 1 ppd x 30 years COMPARISON: 07/10/2024 FINDINGS: CT CHEST LOW DOSE SCREENING HISTORY: Screening exam for lung cancer. 64-year-old female, former smoker who quit 1 year ago, [id number] history DOSE: CTDI vol: 2.9 mGy, DLP: 98.21 mGy*cm TECHNIQUE: Axial CT without IV contrast administration using low dose protocol. This study was performed with techniques to keep radiation doses as low as reasonably achievable, (ALARA). Individualized dose reduction techniques using automated exposure control or adjustment of mA and/or kV according to the patient's size were employed. No acute lung disease is present. Multiple nodules were identified on the prior LDCT of 07/10/2024. There is a 2 mm left lower lobe subpleural nodule best seen on image #232 of series 2, that is less prominent than seen on the prior exam. There is a 3 mm right mid lung nodule best seen on image #161 of series 2, consistent with a benign intrafissural node. There is a 3 mm right lower lobe posterolateral nodule over the dome of the liver, best seen on image #230 of series 2, stable. The 4 mm nodule in the right upper lung field seen on the prior exam is no longer visualized. No pleural or pericardial effusion is seen. No adenopathy or mass lesion is present. IMPRESSION: Stable to improved noncalcified nodules are present, no new nodules or masses are identified. LUNG RADS CATEGORY 2 RECOMMENDATION: 12 month LDCT follow up Reviewed, Interpreted and Dictated by Ad Garcia MD Transcribed by Leonela Goyal Authenticated and [facility]
== END 2025-01-09 23:59 | disposition home or self-care (01) ==
LOC: RAD 10:56
PROVIDERS: PCP Nurse Practitioner Family; Visit Provider Nurse Practitioner Family
DX: R91.8 Other nonspecific abnormal finding of lung field (principal); Z12.2 Encounter for screening for malignant neoplasm of respiratory organs; Z87.891 Personal history of nicotine dependence
CPT/HCPCS: 71271

== ENCOUNTER 2025-01-18 08:16 | Outpatient (CLI) | payer MEDICARE, MEDICAID, SELFPAY ==
[2025-01-18 08:19] LABS: Microscopic, Urine URINE MICROSCOPIC (MICROSCOPIC)
[2025-01-18 09:16] LABS: Appearance,Urine TURBID (Clear); Bilirubin,Urine Negative (Negative); Blood, Urine 2+ (Negative); Color,Urine YELLOW (Yellow); Glucose,Urine (UA) 1+ (Negative); Ketones,Urine Negative (Negative); Leukocyte Esterase,Urine 3+ (Negative); Nitrate,Urine POSITIVE (Negative); Protein,Urine Negative (Negative); Urobilinogen,Urine 0.2 EU/dl (0.2)
[2025-01-18 09:19] LABS: Bacteria,Urine 4+ /lpf; Squamous Epithelial Cell,Urine Occasional #/hpf (0-5); WBC,Urine TNTC #/hpf (0-3)
== END 2025-01-18 23:59 | disposition home or self-care (01) ==
PROVIDERS: PCP Family Medicine; Visit Provider Nurse Practitioner Family
DX: N39.42 Incontinence without sensory awareness (principal)
CPT/HCPCS: 81001; 87086; 87088; 87186

== ENCOUNTER 2025-02-20 07:03 | Outpatient (CLI) | payer MEDICARE, MEDICAID, SELFPAY ==
--- OUTSIDE RECORDS SUMMARY | 2024-12-20 09:20 | XMS_ITS | Encounter Summary ---
Author Organization [facility] Address [address] [place] [address] Care Team Providers Care Concert Manager Name Role Phone Daniel Barba MD Primary Care Provider [phone] Cayla Erazo APRN, DNP Unavailable [phone] Vignesh Pickens MD Primary Care Provider [phone] Reason for Referral * Imaging (Routine) - Closed Specialty Diagnoses / Procedures Referred By Clara stoner Referred To Contact Radiology Diagnoses Gross hematuria Procedures CT Urogram Cayla Erazo APRN, DNP [address] [address] Phone: tel: fax: Referral ID Status Reason Start Date Expiration Date Visits Re quested Visits Authorized [id number] Closed 12/25/2024 06/26/2026 1 1 * Other Medical (Routine) - Pending Review Specialty Diagnoses / Procedures Referred By Clara stoner Referred To Contact Urology Diagnoses Gross hematuria Procedures Cysto- Urology Cayla Erazo APRN, DNP [address] [address] Phone: tel: fax: Referral ID Status Reason Start Date Expiration Date V isits Requested Visits Authorized [id number] Pending Review 12/25/2024 06/26/2026 1 1 * Imaging (Routine) - Authorized Specialty Diagnoses / Procedures Referred By Clara stoner Referred To Contact Radiology Diagnoses Hydronephrosis, unspecified hydronephrosis type Procedures US Renal Complete Cayla Erazo APRN, DNP [address] [address] Phone: tel: fax: Referral ID Status Reason Start Date Expiration Date V isits Requested Visits Authorized [id number] Authorized 12/20/2024 06/21/2026 1 1 Reason for Visit * Reason Comments Female Incontinence * Other Medical (Routine) - Closed Specialty Diagnoses / Procedures Referred By Clara stoner Referred To Contact Urology Diagnoses Hydronephrosis, unspecified hydronephrosis type Urinary retention Procedures UDS Cayla Erazo APRN, DNP [address] [address] Phone: tel: fax: Referral ID Status Reason Start Date Expiration Date Visits Re quested Visits Authorized [id number] Closed 11/08/2024 05/10/2026 1 1 Encounter Details Date Type Department Care Team (Latest Contact Info) Description 12/20/2024 9:20 AM EDT Office Visit [facility] [address] [place] [address] Cayla Erazo APRN, DNP [address] [address] Recurrent UTI (Primary Dx); Hydronephrosis, [...] any time in the past 12 m [facility], were you homeless or living in a [...] drink first t rodríguez in the morning ([employer]) to steady your nerves or to get rid of a hangover? 0 08/15/2024 CAGE Questionnaire Score 0 024 Utilities Answer Date Recorded In the past 12 months has e [employer], gas, oil, or water [employer] threatened to shut off services in your [...] Notes * Progress Notes - Cayla Erazo, REMOTE SENSING ENGINEER, DNP - 12/20/2024 9:20 AM EDTAssociated Order(s): UDS Pre-Procedure Diagnose(s): Hydronephrosis, unspecified hydronephrosis type; Urinary retention Post-Procedure Diagnose(s): Hydronephrosis, unspecified hydronephrosis type; Urinary retention [facility] Note CC: Female Incontinence HPI: Eileen Tovar is a 64 y.o. F who was initially evaluated in Sep 2024 for diagnosis ofbilateral hydronephrosis in Jul 2024 thought to be 2/2 severe constipation. She was treated for UTIwhile inpatient at [facility] and had improvement in renal function and hydronephrosis with indwelling Parekh catheter that was removed prior to discharge to [facility] in [place]. She is a limited historian, presented in a wheelchair, and is accompanied by a staff member from [facility] without further information provided. She was most [...] useof LUE. She also has PVD, COPD, RI, and DVT treated with 2 blood thinners. She denies ever being impacted with stool before and reportedly sees an outside urologist/java developer analyst who presents to the SNF, but could [...] were no vitals filed for this visit. Track Greaser present during entire exam General: Pleasant, alert, [...] or skin jesus present. Imagin10/05/23: [facility] at [place] resulted moderate cortical thinning of kidneys and [...] DNP Authorized by: Cayla Erazo APRN, DNP [place] Protocol: Time out called at: 12/20/2024 10:28 [...] Essential (primary) hypertension CAD (coronary artery disease), [place] coronary artery Controlled diabetes mellitus type II without complication Iron deficiency anemia Second hand smoke exposure Acute kidney injury superimposed on CKD ([facility]/HCC) Arthritis Cellulitis of left knee Chronic respiratory failure COPD (chronic obstructive pulmonary disease) ([facility]) Dehydration with hyponatremia Diabetes mellitus ([facility]/HCC) Hyperlipidemia Restrictive lung disease Stroke ([facility]) [place] coma scale total score 13-15, unspecified coma timing Pyelonephritis Kidney infection Acquired absence of leg above knee Stage 3 chronic kidney disease ([facility]/HCC) Type 2 diabetes mellitus with diabetic chronic kidney disease ([facility]/HCC) Peripheral vascular disease, unspecified ([facility]/HCC) Prosthetic joint infection ([facility]/HCC) Unspecified hydronephrosis Vitamin D deficiency, unspecified [...] BREAST SURGERY N/A Breast Surgery Reconstruction from [facility] BREAST SURGERY N/A Breast Surgery from [facility] CHOLECYSTECTOMY N/A Cholecystotomy from [facility] KIDNEY SURGERY N/A Kidney Surgery from [facility] KNEE SURGERY N/A Knee Surgery from [facility] MASTECTOMY N/A Breast Surgery Mastectomy from [facility] SHOULDER SURGERY Right Shoulder Surgery Right from [...] [address] [place] [address] Doug Chapman MD [address] [address] 03/27/2025 10:30 AM EDT Appointment [facility] Ultrasound [address] [place] [address] 03/27/2025 11:50 AM EDT Clinical Support Medical [facility] Building Lab [address] [place] [address] 03/27/2025 1:00 PM EDT Office Visit Medical Office Building Urology [address], [address] [place] [address] Cayla Erazo APRN, DNP [address] [address] 05/16/2025 8:00 AM EDT Office Visit [facility] [place] [address], [address] [place] [address] Karly Gracia MD [address] [place] [address] 06/07/2025 1:00 PM EDT Office Visit [facility] [address] [place] [address] Tom Iraheta MD [address] [place] [address] Scheduled Orders Name Type Priority [...] EDT Hydronephrosis, unspecified hydronephrosis type Urinary retention HI COMPLEX CYSTOMETROGRAM W/VOID PRESS&URETHRAL PROFILE Routine 12/20/2024 [...] following split bolus administration of IV contrast, [id number], 150 mL. Reformatted images in the coronal [...] MD on 01/03/2025 3:33 PM Cayla Erazo REMOTE SENSING ENGINEER, DNP IMG CT PROCEDURES Final Result * Urine Culture - Clinic Collect (12/20/2024 2:33 PM EDT) Culture <10,000 CFU/mL Mixed urogenital, fecal, or skin jesus present. 12/21/2024 2:41 PM EDT [facility] Urine Urine specimen / Unknown Non-blood Collection / Unknown 12/20/2024 2:33 PM EDT 12/20/2024 3:16 PM EDT us Cayla Erazo REMOTE SENSING ENGINEER, DNP LAB MICROBIOLOGY - GENER AL ORDERABLES Final Result [facility] [address] [place] [address] * (ABNORMAL) Basic Metabolic Panel, Plasma (12/20/2024 11:54 AM EDT) Glucose, Plasma 226(H) 74 - 99 mg/dL 12/20/2024 1:19 PM EDT [facility] BUN, Plasma 34(H) 8 - 23 mg/dL 12/20/2024 1:19 PM EDT [facility] Creatinine, Plasma 1.82(H) 0.60 - 1.10 mg/dL 12/20/2024 1:19 PM EDT [facility] BUN/Creatinine Ratio 12/20/2024 1:19 PM EDT [facility] Sodium, Plasma 134(L) 136 - 145 mmol/L 12/20/2024 1:19 PM EDT [facility] Potassium, Plasma 4.8 3.6 - 4.9 mmol/L 12/20/2024 1:19 PM EDT [facility] Chloride, Plasma 94(L) 97 - 107 mmol/L 12/20/2024 1:19 PM EDT [facility] CO2, Plasma 28 22 - 29 mmol/L 12/20/2024 1:19 PM EDT [facility] Anion Gap 12 6 - 16 mmol/L 12/20/2024 1:19 PM EDT [facility] Total Calcium, Plasma 10.0 8.9 - 10.2 mg/dL 12/20/2024 1:19 PM EDT [facility] eGFRcr 30.5 mL/min/1.7 3m*2 12/20/2024 1:19 PM EDT [facility] Comment:Reported eGFRcr in m L/min/1.73m2 is based the CKD-EPI 2020 equation that does not use a race coefficient. Blood Venous blood specimen / Unknown Venipuncture / Unknown 12/20/2024 11:54 AM EDT 12/20/2024 11:55 AM EDT Cayla Erazo APRN, DNP LAB BLOOD ORDERABLES Andi al Result [facility] [address] [place] [address] * INJECTION FOR BLADDER XRAY WITHOUT VOIDING, HI COMPLEX CYSTOMETROGRAM W/VOID PRESS&URETHRAL PROFILE, UROLOGY UDS WITH BASE PERFORMABLE CHARGES (12/20/2024 10:28 AM EDT) Narrative Cayla Erazo APRN, DNP - 12/20/2024 10:28 AM EDT Cayla Erazo APRN, DNP 01/04/2025 2:40 PM UDS Date/Time: 12/20/2024 10:28 AM Performed by: Cayla Erazo APRN, DNP Authorized by: Cayla Erazo APRN, DNP [place] Protocol: Time out called at: 12/20/2024 10:28 [...] 1034, Until Hermelinda 12/20/24 at 1034, Routine, IntraprocedureIndications:[place] nephrosis, unspecified hydronephrosis type,Urinary retention Given by [...] documented as of this encounter Care Teams Concert Manager Relationship Specialty Start Date End Date Daniel Barba MD [address] [place] [address] PCP - General 01/02/21 12/30/24 Vignesh Pickens MD [address] [place] [address] PCP - General 12/31/24 Cayla Erazo APRN, DNP [address] [place] [phone] Nurse Practitioner Urology 12/20/24 documented as of this encounter
--- OUTSIDE RECORDS SUMMARY | 2024-12-31 14:01 | XMS_ITS | Encounter Summary ---
Author Organization [facility] Address [address] [place] [address] Care Team Providers Care Circuit Breaker Supervisor Name Role Phone Cayla Erazo APRN, FREDERICK Unavailable [phone] Vignesh Pickens MD Primary Care Provider [phone] Reason for Referral * Imaging (Routine) - Closed Specialty Diagnoses / Procedures Referred By Contac t Referred To Contact Cardiology Diagnoses Coronary artery disease involving chickaloon heart without angina pectoris, unspecified vessel or lesion type S/P AKA (above knee amputation) bilateral (CMS/HCC) Acute left arterial ischemic stroke, ICA (internal carotid artery) (CMS/HCC) Procedures VAS US Carotid Duplex Bilateral Stent Karly Gracia MD [address] [place] [address] Phone: tel: fax: Referral ID Status Reason Start Date Expiration Date V isits Requested Visits Authorized [id number] Closed Perform Procedure 11/08/2024 05/10/2026 1 1 Reason for Visit * Imaging (Routine) - Closed Specialty Diagnoses / Procedures Referred By Contac t Referred To Contact Cardiology Diagnoses Coronary artery disease involving chickaloon heart without angina pectoris, unspecified vessel or lesion type S/P AKA (above knee amputation) bilateral (CMS/HCC) Acute left arterial ischemic stroke, ICA (internal carotid artery) (CMS/HCC) Procedures VAS US Carotid Duplex Bilateral Stent Karly Gracia MD [address] [place] [address] Phone: tel: fax: Referral ID Status Reason Start Date Expiration Date V isits Requested Visits Authorized [id number] Closed Perform Procedure 11/08/2024 05/10/2026 1 1 Encounter Details Date Type Department Care Team (Latest Contact Info) Description 12/31/2024 2:01 PM EDT - 12/31/2024 11:59 PM EDT Hospital Encounter [facility] Vascular Lab [address] [place] [address] Coronary artery disease involving chickaloon heart without angina pectoris, unspecified vessel or lesion type; S/P AKA (above knee amputation) bilateral ([facility]); Acute left arterial ischemic stroke, ICA (internal carotid artery) ([facility]) Discharge Disposition: Home or Self Care Social History Tobacco Use Types Packs/Day Years Used Date Smoking Tobacco: Former Cigarettes Q uit: 07/22/2022 Passive Smoke Exposure: Past Smokeless Tobacco: Never Alcohol Use Standard Drinks/Week Comments Not Currently 0 (1 standard drink = 0.6 oz [...] any time in the past 12 m [facility], were you homeless or living in a fdc (including now)? No 08/20/2024 CAGE ASSESSMENT Answer [...] drink first t rodríguez in the morning ([employer] HEADLIGHT [employer]BL[employer]) to steady your nerves or to get rid of a hangover? 0 08/15/2024 CAGE Questionnaire Score 0 024 Utilities Answer Date Recorded In the past 12 months has th e [employer], gas, oil, or water [employer] threatened to shut off services in your home? No 08/20/2024 PHQ-2A Answer Date Recorded Depression Risk 3 09/13/2022 PHQ-9A Answer Date Recorded Depression Risk Score 8 09/13/2022 Comments No Sex and Gender Information Value Date Recorded Sex Assigned at Not on file Legal Sex Female 6:18 PM EDT Gender Identity Not on file Sexual Orientation Not on file documented as of this encounter Medications at Time of Discharge acetaminophen (Tylenol) 500 MG tablet Take 1 tablet by mouth every 6 hours as needed. 01/17/2020 anastrozole (Arimidex) 1 MG chemo tablet Take 1 tablet (1 mg total) by mouth daily. 01/10/2021 ARIPiprazole (Abilify) 5 MG tablet Take 1 tablet (5 mg) by mouth 1 (one) time each day. Artificial Tears ophthalmic solution Administer 2 drops into both eyes 3 times a day as needed. 11/23/2024 ascorbic acid (Vitamin C) 500 MG tablet Take 1 tablet by mouth twice a day. atorvastatin (Lipitor) 40 MG tablet Take 1 tablet by mouth daily. 08/29/2017 azelastine (Astelin) 0.1 % nasal spray Administer 2 sprays into each nostril 2 times a day. Use in each nostril as directed baclofen (Lioresal) 10 MG tablet Take 1 tablet by mouth 3 times a day. 01/17/2020 Breo Ellipta 100-25 MCG/ACT aerosol powder Inhale 1 puff daily. 09/13/2022 calcitriol (Rocaltrol) 0.25 MCG capsule Take 1 capsule by mouth daily. carvedilol (Coreg) 12.5 MG tablet Take 1 tablet by mouth 2 times a day with meals. 01/17/2020 cholecalciferol (Vitamin D3) 25 MCG (1000 UT) tablet Take 1 tablet by mouth 2 times a day. clopidogrel (Plavix) 75 MG tablet Take 1 tablet by mouth daily. 01/17/2020 cyanocobalamin (Vitamin B-12) 1000 MCG tablet Take 1 tablet by mouth daily. D-Mannose 500 MG capsule Take 2,000 mg by mouth 1 (one) time each day. 120 capsule 11 09/26/2024 dextromethorphan -guaiFENesin (Robitussin-DM) 10-100 MG/5ML liquid Take 10 mL by mouth every 4 (four) hours if needed. 01/17/2020 diphenhydrAMINE (Benadryl) 25 MG tablet Take 1 tablet by mouth 2 times a day as needed for itching. DULoxetine (Cymbalta) [address] capsule Take 1 capsule by mouth daily. Do not crush or chew. Take with 60mg capsule for a 90mg dose DULoxetine (Cymbalta) [address] capsule Take 1 capsule by mouth daily. Do not crush or chew. Take with 30mg capsule for a 90mg dose estradiol (Estrace) 0.1 MG/GM vaginal cream Insert 1 gram into the vagina 3x/week 30 g 3 09/26/2024 fentaNYL (Duragesic) 12 MCG/HR Place 1 patch on the skin every 3rd (third) day. 3 patch 08/22/2024 ferrous sulfate 325 (65 Fe) MG tablet Take 1 tablet by mouth daily with breakfast. fluticasone (Flonase) 50 MCG/ACT nasal spray Administer 1 spray into each nostril 2 times a day. 01/17/2020 guaiFENesin (GUAIASORB PO) Take 10 mL by mouth every 4 hours as needed. insulin aspart, w/niacinamide, (Fiasp) 100 UNIT/ML solution vial Inject as directed 2 (two) times a day. Per sliding scale @ 1130 and 1630 insulin glargine (Basaglar KwikPen) 100 UNIT/ML injection pen Inject 70 Units under the skin 2 times a day. @ 0630 and 2000 ipratropium-albu terol (Duo-Neb) 0.5-2.5 mg/3 mL nebulizer solution Take 3 mL by nebulization every 6 hours as needed. loperamide (Imodium) 2 MG capsule Take 1 capsule by mouth every 4 hours as needed. 09/16/2020 magnesium oxide (Mag-Ox) 400 mg tablet Take 1 tablet by mouth 2 times a day. multivitamin (Theragran-M) tablet Take 1 tablet by mouth daily. ondansetron (Zofran) 4 MG tablet Take 1 tablet by mouth every 6 hours as needed. 01/17/2020 oxyCODONE-acetam inophen (Percocet) 5-325 MG tablet Take 1 tablet by mouth 2 (two) times a day if needed for severe pain. 6 tablet 08/22/2024 pantoprazole (ProtoNix) 20 MG EC tablet Take 1 tablet by mouth daily before breakfast. 01/08/2021 pregabalin (Lyrica) 50 MG capsule Take 1 capsule (50 mg) by mouth 2 (two) times a day. 60 capsule 08/22/2024 rivaroxaban (Xarelto) 15 MG tablet Take 1 tablet by mouth every evening. Take with food. traZODone (Desyrel) 150 MG tablet Take 2 tablets by mouth nightly. 01/16/2021 traZODone (Desyrel) 300 MG tablet 12/13/2023 trospium (Sanctura) 20 MG tablet Take 1 tablet (20 mg) by mouth 2 (two) times a day. 60 tablet 11 09/26/2024 Vibegron 75 MG tablet Take 75 mg by mouth daily. Take one pill by mouth daily. 30 tablet 11 12/20/2024 documented as of this encounter Plan of Treatment Upcoming Encounters Date Type Department Care Team (Late st Contact Info) Description 03/07/2025 10:00 AM EDT Office Visit [facility] Urology [address] [place] [address] Doug Chapman MD [address] [address] 03/27/2025 10:30 AM EDT Appointment [facility] Ultrasound [address] [place] [address] 03/27/2025 11:50 AM EDT Clinical Support Medical Office Building Lab [address] [place] [address] 03/27/2025 1:00 PM EDT Office Visit Medical Office Building Urology [address], [address] [place] [address] Cayla Erazo, CLEANER OPERATOR, DNP [id number] [place] [address] 05/16/2025 8:00 AM EDT Office Visit [facility] [place] [address], [address] [place] [address] Karly Gracia MD [address] [place] [address] 06/07/2025 1:00 PM EDT Office Visit [id number] [facility] [address] [address] Tom Iraheta MD [address] [place] [address] documented as of this encounter Procedures Procedure Name Priority Date/Time Associated Diagnosis Comments VAS US CAROTID DUPLEX BILATERAL Routine 12/31/2024 2:27 PM EDT Coronary artery disease involving chickaloon heart without angina pectoris, unspecified vessel or lesion type S/P AKA (above knee amputation) bilateral (CMS/HCC) Acute left arterial ischemic stroke, ICA (internal carotid artery) ([facility]) documented in this encounter Results * VAS US Carotid Duplex Bilateral Stent (12/31/2024 2:27 PM EDT) Anatomical Region Laterality Modality Head, Neck, Vascular Ultrasound Impressions 01/01/2025 7:08 AM EDT Right: Mild, irregular, heterogenous plaque is demonstrated in the distal CCA. Flow is present in the CCA, ICA, and ECA. ICA velocities do not demonstrate evidence of a hemodynamically significant stenosis (less than 50%). Left: A patent ICA stent is noted. No significant carotid plaque is demonstrated. Flow is present in the CCA, ICA, and ECA. ICA stent velocities do not demonstrate evidence of a hemodynamically significant in-stent restenosis (less than 50%). Vertebral artery flow is antegrade, bilaterally. Subclavian artery flow is multiphasic, bilaterally. COMMUNICATION: Per this written report. Preliminary report signed by WINDY Max on 12/31/2024 2:55 PM By electronically signing this report, I, the attending physician, attest that I have personally reviewed the images/data for the above examination(s) and I agree with the final edited report. Drafted by WINDY Max on 12/31/2024 2:48 PM Final report signed by Jennifer Parkinson MD on 01/01/2025 7:08 AM Narrative 01/01/2025 7:08 AM EDT CLINICAL INDICATION: Surveillance for Carotid Artery Intervention; S/P left ICA stent, date unknown TECHNIQUE: Non-invasive, real time duplex exam of the extracranial carotid circulation with Doppler ultrasonic waveform and spectral analysis was performed. COMPARISON: None. FINDINGS: Right: CCA: 75 cm/s ECA: 69 cm/s ICA: 121/27 cm/s; ICA/CCA ratio: 1.6 Vertebral A: 44 cm/s Subclavian A: 97 cm/s Left: CCA (prox to stent): 55 cm/s Proximal ICA stent: Prox end: 82 cm/s Mid: 103 cm/s Distal end: 110/39 cm/s; ICA/CCA ratio: 2.0 Distal to: 101 cm/s ECA: 330 cm/s Vertebral A: 31 cm/s Subclavian A: 154 cm/s Procedure Note Jennifer Parkinson MD - 01/01/2025 CLINICAL INDICATION: Surveillance for Carotid Artery Intervention; S/P left ICA stent, dateunknown TECHNIQUE: Non-invasive, real time duplex exam of the extracranial carotidcirculation with Doppler ultrasonic waveform and spectral analysis wasperformed. COMPARISON: None. FINDINGS: Right: CCA: 75 cm/s ECA: 69 cm/s ICA: 121/27 cm/s; ICA/CCA ratio: 1.6 Vertebral A: 44 cm/s Subclavian A: 97 cm/s Left: CCA (prox to stent): 55 cm/s Proximal ICA stent: Prox end: 82 cm/s Mid: 103 cm/s Distal end: 110/39 cm/s; ICA/CCA ratio: 2.0 Distal to: 101 cm/s ECA: 330 cm/s Vertebral A: 31 cm/s Subclavian A: 154 cm/s IMPRESSION: Right: Mild, irregular, heterogenous plaque is demonstrated in the distalCCA. Flow is present in the CCA, ICA, and ECA. ICA velocities do notdemonstrate evidence of a hemodynamically significant stenosis (less than50%). Left: A patent ICA stent is noted. No significant carotid plaque isdemonstrated. Flow is present in the CCA, ICA, and ECA. ICA stentvelocities do not demonstrate evidence of a hemodynamically significantin-stent restenosis (less than 50%). Vertebral artery flow is antegrade, bilaterally. Subclavian artery flow is multiphasic, bilaterally. COMMUNICATION: Per this written report. Preliminary report signed by WINDY Max on 12/31/2024 2:55 PM By electronically signing this report, I, the attending physician, attestthat I have personally reviewed the images/data for the aboveexamination(s) and I agree with the final edited report. Drafted by WINDY Max on 12/31/2024 2:48 PM Final report signed by Jennifer Parkinson MD on 01/01/2025 7:08 AM Karly Gracia MD CV VASCULAR PROCEDURES Final Result documented in this encounter Visit Diagnoses Diagnosis Coronary artery disease involving chickaloon heart without angina pectoris, unspecified vessel or lesion type S/P AKA (above knee amputation) bilateral (CMS/HCC) Lower limb amputation, above knee Acute left arterial ischemic stroke, ICA (internal carotid artery) (CMS/HCC) Unspecified cerebral artery occlusion with cerebral infarction documented in this encounter Additional Health Concerns Infection Onset Date Last Indicated 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
--- OUTSIDE RECORDS SUMMARY | 2024-12-31 14:01 | XMS_ITS | Encounter Summary ---
Author Organization [facility] Address [address] [place] [id number] Care Team Providers Care Systems Integration Analyst Name Role Phone Cayla Erazo APRN, DNP Unavailable [phone] Vignesh Pickens MD Primary Care Provider [phone] Reason for Referral * Imaging (Routine) - Closed Specialty Diagnoses / Procedures Referred By Clara t Referred To Contact Cardiology Diagnoses S/P AKA (above knee amputation) bilateral (CMS/HCC) Encounter for surgical aftercare following surgery on the circulatory system Procedures VAS Ankle Brachial Index - Segmental Karly Gracia MD [address] [place] [address] Phone: tel: fax: Referral ID Status Reason Start Date Expiration Date V isits Requested Visits Authorized [id number] Closed Perform Procedure 11/08/2024 05/10/2026 1 1 Reason for Visit * Imaging (Routine) - Closed Specialty Diagnoses / Procedures Referred By Claar stoner Referred To Contact Cardiology Diagnoses S/P AKA (above knee amputation) bilateral (CMS/HCC) Encounter for surgical aftercare following surgery on the circulatory system Procedures VAS Ankle Brachial Index - Segmental Karly Gracia MD [address] [place] [address] Phone: tel: fax: Referral ID Status Reason Start Date Expiration Date V isits Requested Visits Authorized [id number] Closed Perform Procedure 11/08/2024 05/10/2026 1 1 Encounter Details Date Type Department Care Team (Latest Contact Info) Description 12/31/2024 2:01 PM EDT - 12/31/2024 11:59 PM EDT Hospital Encounter [facility] Vascular Lab [address] 5th Floor [address], [address] [place] [address] S/P AKA (above knee amputation) bilateral (CMS/HCC); [...] any time in the past 12 m [facility], were you homeless or living in a half-way (including now)? No 08/20/2024 CAGE ASSESSMENT Answer [...] drink first t rodríguez in the morning (EYE-KILN OPERATOR HELPER) to steady your nerves or to get [...] Description 03/07/2025 10:00 AM EDT Office Visit [facility] Urology [address]nd [place] [address] Doug Chapman MD [address] [facility] [address] [place] [address] 03/27/2025 10:30 AM EDT Appointment [facility] Ultrasound [address]nd [place] [address] 03/27/2025 11:50 AM EDT Clinical Support Medical Office Building Lab [address] [place] [address] 03/27/2025 1:00 PM EDT Office Visit [facility] Urology [address] [facility] [address] [facility], [address] [place] [address] Cayla Erazo, WEBSITE ADMIN, DNP [address] [place] [address] 05/16/2025 8:00 AM EDT Office Visit [facility] [place] [address] [facility] [address] [facility], [address] [place] [address] Karly Gracia MD [address] [place] [address] 06/07/2025 1:00 PM EDT Office Visit [facility] [address] [place] [address] Tom Iraheta MD [address] [place] [address] documented as of this encounter [...] are demonstrated at the levels of the WASHING MACHINE ASSEMBLER, TUNNELLER and DPA. Segmental pressures are within normal limits with a TUNNELLER JASEN of 0.98 (138 mmHg) and a DPA JASEN of 1.28 (181 mmHg). Digit pressures are 115 mmHg. Left: AKA is noted. Multiphasic waveforms are demonstrated at the level of the WASHING MACHINE ASSEMBLER. 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 COMPARISON: None. FINDINGS: Right: Multiphasic waveforms are demonstrated at the levels of the WASHING MACHINE ASSEMBLER,TUNNELLER and DPA. Segmental pressures are within normal limits with a TUNNELLER ABIof 0.98 (138 mmHg) and a DPA JASEN of 1.28 (181 mmHg). Digit pressures lrb626 mmHg. Left: AKA is noted. Multiphasic waveforms are demonstrated at the level ofthe WASHING MACHINE ASSEMBLER. IMPRESSION: Right: Normal study; No evidence of [...] documented as of this encounter Care Teams Systems Integration Analyst Relationship Specialty Start Date End Date Vignesh Pickens MD [address] [place] [address] PCP - General 12/31/24 Cayla Erazo APRN, DNP [address] [facility] [address] [place] [address] Nurse Practitioner Urology 12/20/24 documented as of this encounter
--- OUTSIDE RECORDS SUMMARY | 2024-12-31 16:00 | XMS_ITS | Encounter Summary ---
Author Organization [facility] Address [address] [place] [address] Care Team Providers Care Hot Plate Plywood Press Laborer Name Role Phone Cayla Erazo APRN, DNP Unavailable [phone] Vignesh Pickens MD Primary Care Provider [phone] Reason for Referral * Imaging (Routine) - Pending Review Specialty Diagnoses / Procedures Referred By Contac t Referred To Contact Cardiology Diagnoses Asymptomatic bilateral carotid artery stenosis Procedures VAS US Carotid Duplex Bilateral Stent Ro Montaño PA [address] [place] [address] Phone: tel: fax: Referral ID Status Reason Start Date Expiration Date Visits Requested Visits Authorized [id number] Pending Review Perform Procedure 12/31/2024 07/02/2026 1 1 Reason for Visit * Reason Comments Coronary artery disease involving oneida heart without gertrude S/P AKA (above knee amputation) bilatera l Acute left arterial ischemic stroke, ICA (internal carotid * Consultation (Urgent) - Closed Specialty Diagnoses / Procedures Referred By Contact Referred To Contact Vascular Surgery / [facility] Diagnoses Coronary artery disease involving oneida heart without angina pectoris, unspecified vessel or lesion type Karly Gracia MD [address] [place] [address] Phone: tel:[phone] fax:[phone] [facility] [address] [place] [address] Phone: tel: fax: Referral ID Status Reason Start Date Expiration Date V isits Requested Visits Authorized [id number] Closed Specialty Services Required 11/05/2024 05/07/2026 1 1 Encounter Details Date Type Department Care Team (Latest Contact Info) Description 12/31/2024 4:00 PM EDT Office Visit [facility] [address] [place] [address] Bert Canela MD [address] [facility] [address] [place] [address] Asymptomatic bilateral carotid artery stenosis (Primary Dx); PVD (peripheral vascular disease) ([facility]); Hx of AKA (above knee amputation), left ([facility]); History of stroke; Type 2 diabetes mellitus without complication, unspecified whether 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 No 08/20/2024 CAGE ASSESSMENT Answer [...] drink first t rodríguez in the morning (EYE-CUSTOMER RELATIONS ADVISOR) to steady your nerves or to get [...] Hx of AKA (above knee amputation), left ([facility]) 12/31/2024 PVD (peripheral vascular disease) ([facility]) 12/31/2024 Asymptomatic bilateral carotid artery stenosis 12/31/2024 Other specified cardiac arrhythmias 11/05/2024 Cerebral infarction due to unspecified occlusion or stenosis of left carotid arteries ([facility]) 11/05/2024 Hypertensive chronic kidney disease with stage 1 through stage 4 chronic kidney disease, or unspecified chronic kidney disease 10/12/2024 Urinary incontinence without sensory awareness 10/12/2024 Anemia in chronic kidney disease 10/12/2024 Chronic kidney disease, stage 3a ([facility]) 10/12/2024 Urinary retention 09/26/2024 Recurrent UTI 09/26/2024 Post-menopausal atrophic vaginitis 09/26/2024 Cyst of kidney, acquired 09/21/2024 Insomnia, unspecified 09/21/2024 Pain, unspecified 08/22/2024 Unspecified hydronephrosis 08/21/2024 Tubulo-interstitial nephritis, not specified as acute or chronic 08/21/2024 Other disorders of phosphorus metabolism 08/21/2024 Hypertensive heart and chronic kidney disease with heart failure and stage 1 through stage 4 chronic kidney disease, or unspecified chronic kidney disease ([facility]) 08/21/2024 Glycosuria 08/20/2024 Type 2 diabetes mellitus with diabetic chronic kidney disease ([facility]) 08/19/2024 Other nonspecific abnormal finding of lung field 08/19/2024 Stage 3 chronic kidney disease ([facility]) 08/17/2024 Hydronephrosis with renal and ureteral calculous obstruction 08/17/2024 Kidney infection 08/16/2024 Dave coma scale total score 13-15, unspecified coma timing 08/15/2024 Pyelonephritis 08/15/2024 Unspecified abdominal pain 08/15/2024 Old myocardial infarction 08/15/2024 Calculus of kidney 08/15/2024 Fecal impaction ([facility]) 08/14/2024 Constipation, unspecified 08/14/2024 Headache, unspecified 08/14/2024 Nontoxic single thyroid nodule 07/10/2024 Edema, unspecified 07/02/2024 Tinea unguium 06/07/2024 Pain in right toe(s) 06/07/2024 Pain in left toe(s) 06/07/2024 Disorder of kidney and ureter, unspecified 04/25/2024 Secondary hyperparathyroidism of renal origin ([facility]) 04/09/2024 Dysuria 04/09/2024 Adult failure to thrive 04/02/2024 Vitamin D deficiency, unspecified 12/21/2023 Acquired absence of leg above knee 12/13/2023 Peripheral vascular disease, unspecified ([facility]) 12/13/2023 Weakness 12/13/2023 Unspecified right bundle-branch block 12/09/2023 Other acute postprocedural pain 12/09/2023 Mixed simple and mucopurulent chronic bronchitis ([facility]) 12/05/2023 Other specified disorders of the skin and subcutaneous tissue 11/29/2023 Morbid (severe) obesity due to excess calories ([facility]) 10/31/2023 Atrial premature depolarization 10/08/2023 Hyperkalemia 10/05/2023 Hemiplegia and hemiparesis following cerebral infarction affecting left non- dominant side ([facility])10/04/2023 Dyspnea, unspecified 10/04/2023 Chronic diastolic (congestive) heart failure ([facility]) 10/04/2023 Presence of left artificial knee joint 09/27/2023 Acute kidney injury superimposed on CKD ([facility]) 01/04/2023 Arthritis 01/04/2023 Cellulitis of left knee 01/04/2023 Chronic respiratory failure 01/04/2023 COPD (chronic obstructive pulmonary disease) ([facility]) 01/04/2023 Dehydration with hyponatremia 01/04/2023 Diabetes mellitus ([facility]) 01/04/2023 Hyperlipidemia 01/04/2023 Restrictive lung disease 01/04/2023 Stroke ([facility]) 01/04/2023 Second hand smoke exposure 10/04/2022 Iron deficiency anemia 03/01/2022 Hypotension 06/03/2017 GERD without esophagitis 03/28/2017 CAD (coronary artery disease), oneida coronary artery 03/28/2017 Controlled diabetes mellitus type [...] amputation), left (CMS/HCC) PVD (peripheral vascular disease) ([facility]) Asymptomatic bilateral carotid artery stenosis - Primary [...] Description 03/07/2025 10:00 AM EDT Office Visit [facility] [address] [place] [address] Doug Chapman MD [address] [facility] [address] [place] [address] 03/27/2025 10:30 AM EDT Appointment [facility] Ultrasound [address] [place] [id number] 03/27/2025 11:50 AM EDT Clinical Support Medical Office Building Lab [address] [place] [address] 03/27/2025 1:00 PM EDT Office Visit Medical Office Building Urology [address] [facility], [address] [place] [address] Cayla Erazo, ACCOUNT SUPPORT ANALYST, DNP [address] [facility] [address] [place] [address] 05/16/2025 8:00 AM EDT Office Visit [facility] [place] [address] [facility], [address] [place] [address] Karly Gracia MD [address] [place] [address] 06/07/2025 1:00 PM EDT Office Visit [facility] [address] [place] [address] Tom Iraheta MD [address] [place] [address] Scheduled Orders Name Type Priority [...] 2 diabetes mellitus without complication, 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
--- OUTSIDE RECORDS SUMMARY | 2025-01-03 14:15 | XMS_ITS | Encounter Summary ---
Author Organization [facility] Address [address] [place] [address] Care Team Providers Care Commercial Lines Manager Name Role Phone Cayla Erazo APRN, DNP Unavailable [phone] Vignesh Pickens MD Primary Care Provider [phone] Reason for Referral * Imaging (Routine) - Closed Specialty Diagnoses / Procedures Referred By Clara stoner Referred To Contact Radiology Diagnoses Gross hematuria Procedures CT Urogram Cayla Erazo APRN, DNP [address] [address] Phone: tel: fax: Referral ID Status Reason Start Date Expiration Date Visits Re quested Visits Authorized [id number] Closed 12/25/2024 06/26/2026 1 1 Reason for Visit * Imaging (Routine) - Closed Specialty Diagnoses / Procedures Referred By Clara stoner Referred To Contact Radiology Diagnoses Gross hematuria Procedures CT Urogram Cayla Erazo APRN, DNP [address] [address] Phone: tel: fax: Referral ID Status Reason Start Date Expiration Date Visits Re quested Visits Authorized [id number] Closed 12/25/2024 06/26/2026 1 1 Encounter Details Date Type Department Care Team (Latest Contact Info) Description 01/03/2025 2:15 PM EDT - 01/03/2025 11:59 PM EDT Hospital Encounter [facility] [place] [facility] [address] [place] [address] Gross hematuria Discharge Disposition: Home or Self Care Social [...] any time in the past 12 m [facility], were you homeless or living [...] drink first t rodríguez in the morning (EYE-PHOTOGRAPHIC SUPERVISOR) to steady your nerves or to get rid of a hangover? 0 08/15/2024 CAGE Questionnaire Score 0 024 Utilities Answer Date Recorded In the past 12 months has th e [employer], gas, oil, or water [employer] threatened to shut off services in your [...] by mouth daily. 30 tablet 11 12/20/2024 6 documented as of this encounter Plan of Treatment Upcoming Encounters Date Type Department Care Team (Late st Contact Info) Description 03/07/2025 10:00 AM EDT Office Visit [facility] Urology [address], [address] [place] [phone] Doug Chapman MD [address] [place] [address] 03/27/2025 10:30 AM EDT Appointment [facility] [place] [facility] Ultrasound [address] [place] [address] 03/27/2025 11:50 AM EDT Clinical Support Medical Office Building Lab [address] [place] [address] 03/27/2025 1:00 PM EDT Office Visit Medical Office Building Urology [address] [facility], [address] [place] [address] Cayla Erazo APRN, FREDERICK [address] [facility] [address] [place] [address] 05/16/2025 8:00 AM EDT Office Visit [facility] [place] [address] [facility], [address] [place] [address] Karly Gracia MD [address] [place] [address] 06/07/2025 1:00 PM EDT Office Visit [facility] [address] [place] [address] Tom Iraheta MD [address] [place] [address] documented as of this encounter Procedures Procedure Name Priority Date/Time Associated Diagnosis Comments CT UROGRAM Routine 01/03/2025 3:01 PM EDT Gross hematuria documented in this encounter Results * CT [...] following split bolus administration of IV contrast, [id number], 150 mL. Reformatted images in the coronal [...] MD on 01/03/2025 3:33 PM Cayla Erazo LINOLEUM LAYER APPRENTICE, [facility] IMG CT PROCEDURES Final Result documented in this encounter Visit Diagnoses Diagnosis Gross hematuria documented in this encounter Administered Medications Inactive Administered Medications - up to 3 most recent administrations Medication Order MAR Action Action Date Dose Rate Site iohexol (OMNIPaque) 300 MG/ML injection 150 mL 150 mL, Intravenous, Once in imaging, 1 dose, Starting on Hermelinda 01/03/25 at 1416, Until Hermelinda 01/03/25 at 1437, Routine, Imaging Protocol Orders Given 01/03/2025 2:37 PM EDT 150 mL documented in this encounter Additional Health [...] documented as of this encounter Care Teams Commercial Lines Manager Relationship Specialty Start Date End Date Vignesh Pickens MD [address] [place] [address] PCP - General 12/31/24 Cayla Erazo APRN, FREDERICK [address] [place] [id number] [place] [address] Nurse Practitioner Urology 12/20/24 documented as of this encounter
--- OUTSIDE RECORDS SUMMARY | 2025-01-24 14:00 | XMS_ITS | Encounter Summary ---
Author Organization [facility] Address [address] [place] [address] Care Team Providers Care Hand Outside Cutter Name Role Phone Cayla Erazo APRN, DNP Unavailable [phone] Vignesh Pickens MD Primary Care Provider [phone] Encounter Details Date Type Department Care Team (Late st Contact Info) Description 01/24/2025 2:00 PM EDT Pre-Admission Testing [place] [facility] [address], [address] [place] [address] Social History Tobacco Use Types Packs/Day Years [...] were you homeless or living in a detention (including now)? No 08/20/2024 CAGE ASSESSMENT Answer [...] drink first t rodríguez in the morning (EYE-INTEGRATION ARCHITECT) to steady your nerves or to get [...] diastolic CHF.), dysrhythmias (Hx RBBB.), hyperlipidemia, past [place] and PVD.Does not have angina, atrial fibrillation, [...] - CAD s/p PCI in 2017 in [facility] (records requested), ICM with LVEF 40-45% [...] Musculoskeletal: arthritis. Does not have multiple sclerosis. [facility] additional comments: Hx Left AKA in 11/2023 [...] INR 2.5 to 3.5 Prevention of recurrent [place] INR 2.5 to 3.5 INR 03/06/2014 1.0 (NOTE) OPTIMAL INR RANGES FOR PATIENT ON ORAL ANTICOAGULANT THERAPY Prevention of venous thromboembolism INR 2.0 to 3.0 In patients with heart disease: Atrial fibrillation INR 2.0 to 3.0 Valvular heart disease INR 2.0 to 3.0 Tissue heart valves INR 2.0 to 3.0 Mechanical prosthetic valves INR 2.5 to 3.5 Prevention of recurrent [place] INR 2.5 to 3.5 INR 03/05/2014 1.0 (NOTE) OPTIMAL INR RANGES FOR PATIENT ON ORAL ANTICOAGULANT THERAPY Prevention of venous thromboembolism INR 2.0 to 3.0 In patients with heart disease: Atrial fibrillation INR 2.0 to 3.0 Valvular heart disease INR 2.0 to 3.0 Tissue heart valves INR 2.0 to 3.0 Mechanical prosthetic valves INR 2.5 to 3.5 Prevention of recurrent [place] INR 2.5 to 3.5 Visit Vitals Wt 85.7 kg (189 lb) LMP (LMP Unknown) BMI 32.44 kg/m?? OB Status Postmenopausal Smoking Status Former BSA 1.97 m?? Physical Exam Airway Cardiovascular Dental Pulmonary Neurological (+) hemiplegia Skin Musculoskeletal Extremities Anesthesia Plan ASA 3 Anesthesia technique(s) discussed with the patient/family: general Comment: WAYLON phone screen with pt.'s nurse Gabriela, at [facility]. Discussed withDr. Wood and discussed with Dr. Ceci Mitchell, RE: holding Plavix and Xarelto. Pearl Chopra, LUMITE INJECTOR [1] Past 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: Diagnosis Date Anxiety [...] BREAST SURGERY N/A Breast Surgery Reconstruction from [facility] BREAST SURGERY N/A Breast Surgery from [facility] CHOLECYSTECTOMY N/A Cholecystotomy from [facility] KIDNEY SURGERY N/A Kidney Surgery from [facility] KNEE SURGERY N/A Knee Surgery from [facility] MASTECTOMY N/A Breast Surgery Mastectomy from [facility] SHOULDER SURGERY Right Shoulder Surgery Right from [facility] [5] Allergies Allergen Reactions Sulfa Drugs Anaphylaxis Ultram [Tramadol] Swelling lips swell Hydrocodone Unknown - Patient states they do not know rxn details [facility] is unaware of what reaction. Pedi-Pre Tape [place] [Wound Dressing Adhesive] Rash Wellbutrin [Bupropion] Rash [...] card, photo ID, along with power of assistant city attorney, guardianship or advanced directives if applicable [...] Description 03/07/2025 10:00 AM EDT Office Visit [facility] Urology [address], [address] [place] [address] Doug Chapman MD [address] [place] [address] 03/27/2025 10:30 AM EDT Appointment [facility] Ultrasound [address], [address]nd [place] [address] 03/27/2025 11:50 AM EDT Clinical Support Medical Office Building Lab [place] [phone] 03/27/2025 1:00 PM EDT Office Visit Medical Office Building Urology [address], [address] [place] [address] Cayla Erazo APRN, DNP [address] [place] [address] 05/16/2025 8:00 AM EDT Office Visit [facility] [place] [address], [address] [place] [address] Karly Gracia MD [address] [place] [address] 06/07/2025 1:00 PM EDT Office Visit [facility] [address] [place] [address] Tom Iraheta MD [address] [place] [address] documented as of this encounter [...] documented as of this encounter Care Teams Hand Outside Cutter Relationship Specialty Start Date End Date Vignesh Pickens MD [address] [place] [address] PCP - General 12/31/24 Cayla Erazo APRN, DNP [address] [place] [address] Nurse Practitioner Urology 12/20/24 documented as of this encounter
--- OUTSIDE RECORDS SUMMARY | 2025-01-31 08:03 | XMS_ITS | Encounter Summary ---
Author Organization [facility] Address [address] [place] [address] Care Team Providers Care Oriental Rug Stretcher Name Role Phone Cayla Erazo APRN, DNP Unavailable [phone] Vignesh Pickens MD Primary Care Provider [phone] Reason for Visit * Auth/Cert (Routine) Specialty Diagnoses / Procedures Referred By Contac t Referred To Contact Diagnoses Gross hematuria Gross hematuria Procedures MT CYSTO/URETERO/PYELOSC,BX &/OR FULG LESN URETEROSCOPY, WITH BIOPSY POSSIBLE STENT PLACEMENTS Ceci Mitchell MD [address] [address] Phone: tel: fax: [facility] [address] [place] [address] Phone: tel: Referral ID Status Reason Start Date Expiration Date Visits Re quested Visits Authorized [id number] 1 1 Encounter Details Date Type Department Care Team (Latest Contact Info) Description 01/31/2025 8:03 AM EDT - 01/31/2025 1:39 PM EDT Hospital Encounter [facility] [address] [place] [address] Ceci Mitchell MD [address] [address] Urinary retention (Primary Dx); Gross [...] any time in the past 12 m [facility], were you homeless or living in [...] drink first t rodríguez in the morning (EYE-MANAGER PLACEMENT) to steady your nerves or to get rid of a hangover? 0 08/15/2024 CAGE Questionnaire Score 0 024 Utilities Answer Date Recorded In the past 12 months has e [employer], gas, oil, or water company threatened to [...] confirm your location ahead of your appointment) [facility] Urology Department Clinic at [facility] [address] [facility] [address], [facility], [address] [place] [address] Clinic After Hours [facility] Office Building Urology Clinic [facility] [address] [place] [address] Clinic After Hours documented in this encounter [...] POSTOPERATIVE DIAGNOSIS: Same SURGEON: Ceci Mitchell MD LINER ROLL CHANGER SURGEON(S): Gerry Cullen DO, Doug Lundy MD [...] the start of the case. A 19 Egyptian rigid cystoscope was introduced into the patient's [...] of the renal pelvis. We advanced a [place] catheter over our sensor wire and performed [...] leave stents bilaterally with strings. Used 7 Egyptian by 24 cm double-J stents on strings. These were placed without difficulty and intraoperative fluoroscopy was used to confirm appropriate positioning with the proximal curls in the renal pelvises bilaterally in the distal curls in the bladder. An 18 Egyptian García catheter was placed at the conclusion [...] Cullen DO PGY-3, Department of Urology Pager: [phone] Cosigned by Ceci Mitchell MD at 01/31/2025 [...] (cerebral infarction) COPD (chronic obstructive pulmonary disease) ([facility]) Depression Fibromyalgia History of falling [...] BREAST SURGERY N/A Breast Surgery Reconstruction from [facility] BREAST SURGERY N/A Breast Surgery from [facility] CHOLECYSTECTOMY N/A Cholecystotomy from [facility] KIDNEY SURGERY N/A Kidney Surgery from [facility] KNEE SURGERY N/A Knee Surgery from [facility] MASTECTOMY N/A Breast Surgery Mastectomy from [facility] SHOULDER SURGERY Right Shoulder Surgery Right from [facility] [3] No medications prior to admission. [4] Allergies Allergen Reactions Sulfa Drugs Anaphylaxis Ultram [Tramadol] Swelling lips swell Hydrocodone Unknown - Patient states they do not know rxn details [facility] is unaware of what reaction. Pedi-Pre Tape [place] [Wound Dressing Adhesive] Rash Wellbutrin [Bupropion] Rash [...] Description 03/07/2025 10:00 AM EDT Office Visit [facility] Urology [address], 2nd [place] [address] Doug Chapman MD [address] [place] [address] 03/27/2025 10:30 AM EDT Appointment [facility] Ultrasound [address], 2nd [place] [address] 03/27/2025 11:50 AM EDT Clinical Support Medical Office Building Lab [address] [place] [address] 03/27/2025 1:00 PM EDT Office Visit Medical Office Building Urology [address] [facility], [address] [place] [address] Cayla Erazo, MAJOR ACCOUNT MANAGER, DNP [address] [place] [address] 05/16/2025 8:00 AM EDT Office Visit [facility] [place] [address] [facility], [address] [place] [address] Karly Gracia MD [address] [place] [address] 06/07/2025 1:00 PM EDT Office Visit [facility] [address] [facility] [address] [place] [address] Tom Iraheta MD [address] [place] [address] documented as of this encounter [...] Routine 01/31/2025 10:22 AM EDT Gross hematuria MT CYSTO/URETERO/PYELOS C,BX &/OR FULG LESN 01/31/2025 9:32 [...] Comment 01/31/2025 11:41 AM EDT HEALTHCARE LAB Phone Representative ID Abbey Medina 01/31/2025 11:41 AM EDT HEALTHCARE LAB Device ID [id number] 01/31/2025 11:41 AM EDT HEALTHCARE LAB Specimen Type POC Capillary 01/31/2025 11:41 AM EDT HEALTHCARE LAB Blood Capillary blood specimen / Unknown 01/31/2025 11:39 AM EDT 01/31/2025 11:41 AM EDT us Ceci Mitchell MD LAB POINT OF CARE TE ST DOCKED DEVICE UNSOLICITED RESULTS Final Result HEALTHCARE LAB [address] [place] [address] * [place] Less than 1 Hour Intraoperative [...] Growth Maira glabrata(A) 02/08/2025 11:50 AM EDT [facility] Urine Urinary bladder structure / Unknown 01/31/2025 10:23 AM EDT 01/31/2025 11:38 AM EDT Comment:Pre-op diagnosis: Gross hematuria us Ceci Mitchell MD LAB MICROBIOLOGY - GENERAL O RDERABLES Final Result Performing Organization Address City/[facility]/[place] [address] * Urine Culture (01/31/2025 10:22 AM EDT) Pathologist [facility] Culture No growth at day 1 02/01/2025 8:02 AM EDT [facility] Urine Urinary bladder structure / Unknown 01/31/2025 10:22 AM EDT 01/31/2025 11:38 AM EDT Comment:Pre-op diagnosis: Gross hematuria us Ceci Mitchell MD LAB MICROBIOLOGY - GENERAL O RDERABLES Final Result Performing Organization Address [facility] [place] [address] * (ABNORMAL) POCT glucose meter (01/31/2025 8:47 [...] 01/31/2025 8:49 AM EDT [facility] Phone Representative ID Khai Jamison 02/01/20 8:49 AM EDT HEALTHCARE LAB Device ID [id number] 01/31/2025 8:49 AM EDT HEALTHCARE LAB Specimen Type POC Capillary 01/31/2025 8:49 AM EDT HEALTHCARE LAB Blood Capillary blood specimen / Unknown 01/31/2025 8:47 AM EDT 01/31/2025 8:49 AM EDT us Ceci Mitchell MD LAB POINT OF CARE TE ST DOCKED DEVICE UNSOLICITED RESULTS Final Result [facility] [address] [place] [address] documented in this encounter Visit Diagnoses Diagnosis [...] Orosco RN)[id number] (Continued by Anesthesia - Provider: Mgiue Seay CRNA)[id number] (Stopped - Provider: Migue Seay [...] documented as of this encounter Care Teams Oriental Rug Stretcher Relationship Specialty Start Date End Date Vignesh Pickens MD [address] [place] [address] PCP - General 12/31/24 Cayla Erazo APRN, FREDERICK [id number] [place] [address] Nurse Practitioner Urology 12/20/24 documented as of this encounter
--- OUTSIDE RECORDS SUMMARY | 2025-01-31 08:55 | XMS_ITS | Encounter Summary ---
Author Organization Healthcare Address [address] [place] [address] Care Team Providers Care Restorative Art Embalmer Name Role Phone Cayla Erazo APRN, DNP Unavailable [phone] Vignesh Pickens MD Primary Care Provider [phone] Reason for Visit * Auth/Cert (Routine) Specialty Diagnoses / Procedures Referred By Contelvie t Referred To Contact Diagnoses Gross hematuria Gross hematuria Procedures W[place] CYSTO/URETERO/PYELOSC,BX &/OR FULG LESN URETEROSCOPY, WITH BIOPSY POSSIBLE STENT PLACEMENTS Ceci Mitchell MD [address] [address] Phone: tel: fax: [facility]ATING ROOM [address] [place] [address] Phone: tel: Referral ID Status Reason Start Date Expiration Date Visits Re quested Visits Authorized [id number] 1 1 Encounter Details Date Type Department Care Team (Late st Contact Info) Description 01/31/2025 8:55 AM EDT - 01/31/2025 10:10 AM EDT Surgery [facility] RO[facility] [address] [place] [address] Ceci Mitchell MD [address] [address] URETEROSCOPY,CYSTOSCOP Y, RETROGRADE PYELOGRAM, BILATERAL STENT PLACEMENT [03039 (CPT )] Surgery Details Date/Time Status Location OR Service Patient Class Case Class Case Type Trauma Case? 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, 2nd Floor, Wing [address], [address] [place] [address] Clinic After Hours [facility] Medical Office Building Urology Clinic [address] [place] [address] Clinic After Hours documented in this encounter [...] POSTOPERATIVE DIAGNOSIS: Same SURGEON: Ceci Mitchell MD INFORMATICA SURGEON(S): Gerry Cullen DO, Doug Lundy MD [...] the start of the case. A 19 Indian rigid cystoscope was introduced into the patient's [...] of the renal pelvis. We advanced a Loyal catheter over our sensor wire and performed [...] leave stents bilaterally with strings. Used 7 Indian by 24 cm double-J stents on strings. These were placed without difficulty and intraoperative fluoroscopy was used to confirm appropriate positioning with the proximal curls in the renal pelvises bilaterally in the distal curls in the bladder. An 18 Indian García catheter was placed at the conclusion [...] Cullen DO PGY-3, Department of Urology Pager: [phone] Cosigned by Ceci Mitchell MD at 01/31/2025 [...] Touchworks KIDNEY SURGERY N/A Kidney Surgery from [facility] KNEE SURGERY N/A Knee Surgery from [facility] MASTECTOMY N/A Breast Surgery Mastectomy from [facility] SHOULDER SURGERY Right Shoulder Surgery Right from [facility] [3] No medications prior to admission. [4] Allergies Allergen Reactions Sulfa Drugs Anaphylaxis Ultram [Tramadol] Swelling lips swell Hydrocodone Unknown - Patient states they do not know rxn details [facility] is unaware of what reaction. Pedi-Pre Tape Palmer [Wound Dressing Adhesive] Rash Wellbutrin [Bupropion] Rash [...] Visit [facility] Urology [address], [address]nd [place] [address] Doug Chapman MD [address] [place] [address] 03/27/2025 10:30 AM EDT Appointment [facility] Ultrasound [address], [address]nd [place] [address] 03/27/2025 11:50 AM EDT Clinical Support Medical Office Building Lab [address] [place] [address] 03/27/2025 1:00 PM EDT Office Visit Medical Office Building Urology [address] [facility], [address] [place] [address] Cayla Erazo, SALON COORDINATOR, DNP [address] [place] [address] 05/16/2025 8:00 AM EDT Office Visit [facility] [place] [address] [facility], [address] [place] [address] Karly Gracia MD [address] [place] [address] 06/07/2025 1:00 PM EDT Office Visit [facility] [address] [place] [address] Tom Iraheta MD [address] [place] [address] documented as of this encounter [...] Routine 01/31/2025 10:22 AM EDT Gross hematuria WV CYSTO/URETERO/PYELOS C,BX &/OR FULG LESN 01/31/2025 9:32 [...] Comment 01/31/2025 11:41 AM EDT HEALTHCARE LAB Will Call Order Clerk ID Abbey Medina 01/31/2025 11:41 AM EDT [facility] Device ID [id number] 01/31/2025 11:41 AM EDT [facility] Specimen Type POC Capillary 01/31/2025 11:41 AM EDT [facility] Blood Capillary blood specimen / Unknown 01/31/2025 11:39 AM EDT 01/31/2025 11:41 AM EDT Ceci Mitchell MD LAB POINT OF CARE TE ST DOCKED DEVICE UNSOLICITED RESULTS Final Result [facility] [address] [place] [address] * [place] Less than 1 Hour Intraoperative (01/31/2025 11:14 AM EDT) Narrative IMAGING - 01/31/2025 11:15 AM EDT Images were obtained for surgical purposes. See Ceci Mitchell's surgical note in the patient's chart for the findings. us Ceci Mitchell MD IMG FLUOROSCOPY PROCEDURES F inal Result Performing Organization Address City/[facility] Co de Phone Number IMAGING * (ABNORMAL) Fungal Culture, Routine (01/31/2025 10:23 AM EDT) Culture Confluent Growth Maira glabrata(A) 02/08/2025 11:50 AM EDT [facility] Urine Urinary bladder structure / Unknown 01/31/2025 10:23 AM EDT 01/31/2025 11:38 AM EDT Comment:Pre-op diagnosis: Gross hematuria us Ceci Mitchell MD LAB MICROBIOLOGY - GENERAL O RDERABLES Final Result Performing Organization Address [facility] de Phone Number [facility] [address] [place] [address] * Urine Culture (01/31/2025 10:22 AM EDT) Culture No growth at day 1 02/01/2025 8:02 AM EDT [facility] Urine Urinary bladder structure / Unknown 01/31/2025 10:22 AM EDT 01/31/2025 11:38 AM EDT Comment:Pre-op diagnosis: Gross hematuria us Ceci Mitchell MD LAB MICROBIOLOGY - GENERAL O RDERABLES Final Result Performing Organization Address [facility] Co pr Phone Number [facility] [address] [place] [address] * (ABNORMAL) POCT glucose meter (01/31/2025 8:47 AM EDT) POCT Glucose 135(H) 74 - 99 mg/dL 01/31/2025 8:49 AM EDT [facility] Comment:Accuracy of a glucos e result [...] Comment 01/31/2025 8:49 AM EDT HEALTHCARE LAB Will Call Order Clerk ID Khai Jamison 02/01/20 8:49 AM EDT HEALTHCARE LAB Device ID [id number] 01/31/2025 8:49 AM EDT HEALTHCARE LAB Specimen Type POC Capillary 01/31/2025 8:49 AM EDT HEALTHCARE LAB Blood Capillary blood specimen / Unknown 01/31/2025 8:47 AM EDT 01/31/2025 8:49 AM EDT us Ceci Mitchell MD LAB POINT OF CARE TE ST DOCKED DEVICE UNSOLICITED RESULTS Final Result HEALTHCARE LAB [address] [place] [address] documented in this encounter Visit Diagnoses Diagnosis [...] documented as of this encounter Care Teams Restorative Art Embalmer Relationship Specialty Start Date End Date Vignesh Pickens MD [address] [place] [address] PCP - General 12/31/24 Cayla Erazo APRN, FREDERICK [address] [facility] [address] [place] [address] Nurse Practitioner Urology 12/20/24 documented as of this encounter
--- OUTSIDE RECORDS SUMMARY | 2025-01-31 09:48 | XMS_ITS | Encounter Summary ---
Author Organization Healthcare Address [address] [place] [address] Care Team Providers Care Mortar Worker Name Role Phone Cayla Erazo APRN, FREDER[place] Unavailable [phone] Vignesh Pickens MD Primary Care Provider [phone] Reason for Visit * Auth/Cert (Routine) Specialty Diagnoses / Procedures Referred By Clara stoner Referred To Contact Diagnoses Gross hematuria Gross hematuria Procedures [place] CYSTO/URETERO/PYELOSC,BX &/OR FULG LESN URETEROSCOPY, WITH BIOPSY POSSIBLE STENT PLACEMENTS Ceci Mitchell MD [address] [facility] [address] [place] [address] Phone: tel: fax: [facility]ATING ROOM [address] [place] [address] Phone: tel: Referral ID Status Reason Start Date Expiration Date Visits Re quested Visits Authorized [id number] 1 1 Encounter Details Date Type Department Care Team (Late st Contact Info) Description 01/31/2025 9:48 AM EDT Anesthesia Event [facility] [address] [place] [address] Nj Sears MD [address] [place] [address] Anesthesia Record Procedure Summary Procedure [...] Hand; Site Prep: Chlorhexidine ; Local Anesth: [place]; Technique: Anatomical landmarks; Inserted by: james orosco [...] No change to dentition. ; Placed by: ANIMAL IMPERSONATOR; Removal Date: 01/31/25; Removal Time: 1122 01/31/25 [...] time in the past 12 m [facility], were you homeless or living in [...] drink first t rodríguez in the morning (EYE-INSURANCE CHECKER) to steady your nerves or to get rid of a hangover? 0 08/15/2024 CAGE Questionnaire Score 0 024 Utilities Answer Date Recorded In the past 12 months has e [employer], gas, oil, or water [employer] threatened to shut off services in your [...] and Staff Patient location during procedure: OR ANIMAL IMPERSONATOR: Migue Seay CRNA Performed: ANIMAL IMPERSONATOR Patient Condition Indications for airway management: anesthesia [...] WITH BIOPSY POSSIBLE STENT PLACEMENTS (Bilateral) Location: [address] / [place] Surgeons: Ceci Mitchell MD Department of [...] were no vitals filed for this visit. [place] body weight: 54.7 kg (120 lb 9.5 [...] Abnormal Ventricular Rate 77 Atrial Rate 77 [place] Interval 180 QRSD Interval 124 QT Interval 416 QTC Interval 470 P [place] 23 R [place] 268 T Wave [place] 67 Diagnosis Normal sinus rhythm Diagnosis Right [...] valvular disease. PFTs No results found for: [id number] , [id number] , [id number] , FVCPRED Relevant Problems Cardio (+) Asymptomatic bilateral carotid artery stenosis (+) Atrial premature depolarization (+) CAD (coronary artery disease), [place] coronary artery (+) Deep venous thrombosis of lower extremity (+) Dyspnea, unspecified (+) Essential (primary) hypertension (+) Old myocardial infarction (+) Other specified cardiac arrhythmias (+) PVD (peripheral vascular disease) ([facility]) (+) Peripheral vascular disease, unspecified ([facility]) (+) Unspecified right bundle-branch block (+) Venous embolism Endo (+) Controlled diabetes mellitus type II without complication (+) Nontoxic single thyroid nodule (+) Type 2 diabetes mellitus with diabetic chronic kidney disease ([facility]) (+) Type 2 diabetes mellitus without complication GI (+) Fecal impaction ([facility]) (+) GERD without esophagitis (+) Morbid (severe) obesity due to excess calories ([facility]) /Renal (+) Acute kidney injury superimposed on CKD ([facility]) (+) Calculus of kidney (+) Chronic kidney disease, stage 3a ([facility]) (+) Cyst of kidney, acquired (+) Hydronephrosis with renal and ureteral calculous obstruction (+) Hypertensive chronic kidney disease with stage 1 through stage 4 chronic kidney disease, or unspecified chronic kidney disease (+) Hypertensive heart and chronic kidney disease with heart failure and stage 1 through stage 4 chronic kidney disease, or unspecified chronic kidney disease ([facility]) (+) Kidney infection (+) Pyelonephritis (+) Recurrent UTI (+) Stage 3 chronic kidney disease ([facility]) (+) Tubulo-interstitial nephritis, not specified as acute or chronic (+) Type 2 diabetes mellitus with diabetic chronic kidney disease ([facility]) (+) Unspecified hydronephrosis Neuro/Psych (+) Headache, unspecified (+) Hx of AKA (above knee amputation), left ([facility]) (+) Stroke ([facility]) Pulmonary (+) COPD (chronic obstructive pulmonary disease) ([facility]) (+) Mixed simple and mucopurulent chronic bronchitis ([facility]) Other (+) Arthritis Anesthesia Evaluation Clinical information reviewed: NPO Status Physical Exam Airway Mallampati: III Mouth opening: normal TM distance: <3 FB Neck ROM: full Cardiovascular Rhythm: regular Rate: normal Dental Pulmonary Comments: Symmetric chest rise, moving air bilat, no increased wob Neurological Skin Musculoskeletal Extremities Anesthesia Plan ASA 3 Plan was reviewed with: ANIMAL IMPERSONATOR Anesthesia technique(s) discussed with the patient/family: general [...] Date Anxiety Breast cancer Cerebral infarction, unspecified ([facility]) CVA (cerebral infarction) COPD (chronic obstructive pulmonary disease) ([facility]) Depression Fibromyalgia History of falling [...] BREAST SURGERY N/A Breast Surgery Reconstruction from [facility] BREAST SURGERY N/A Breast Surgery from [facility] CHOLECYSTECTOMY N/A Cholecystotomy from [facility] KIDNEY SURGERY N/A Kidney Surgery from [facility] KNEE SURGERY N/A Knee Surgery from [facility] MASTECTOMY N/A Breast Surgery Mastectomy from [facility] SHOULDER SURGERY Right Shoulder Surgery Right from [facility] [3] Allergies Allergen Reactions Sulfa Drugs Anaphylaxis Ultram [Tramadol] Swelling lips swell Hydrocodone Unknown - Patient states they do not know rxn details [facility] is unaware of what reaction. Pedi-Pre Tape [place] [Wound Dressing Adhesive] Rash Wellbutrin [Bupropion] Rash [...] Description 03/07/2025 10:00 AM EDT Office Visit [facility] [address] [place] [address] Doug Chapman MD [id number] [place] [address] 03/27/2025 10:30 AM EDT Appointment [facility] Ultrasound [address] [place] [address] 03/27/2025 11:50 AM EDT Clinical Support Medical Office Building Lab [address] [place] [address] 03/27/2025 1:00 PM EDT Office Visit Medical Office Building Urology [address] [facility], [address] [place] [address] Cayla Erazo, DIP STAND LOADER, DNP [id number] [place] [address] 05/16/2025 8:00 AM EDT Office Visit [facility] [place] [address] [facility], [address] [place] [address] Karly Gracia MD [address] [place] [address] 06/07/2025 1:00 PM EDT Office Visit [place] [id number] [facility] [address] [place] [address] Tom Iraheta MD [address] [place] [address] documented as of this encounter Goals Goal Patient Goal Type Associated Problems Recent Progress Patient-Stated? Author Autogenerat ed Goal Care Plan Autogenerated Problem No Eugenia Hodge documented as of this encounter Procedures Procedure Name Priority Date/Time Associated Diagnosis Comments PB ANESTHESIA PLACEHOLDER Routine 01/31/2025 9:58 AM EDT FL AN ELECTIVE ENDOTRACHEAL AIRWAY Routine 01/31/2025 9:58 AM EDT documented in this encounter Results * FL AN ELECTIVE ENDOTRACHEAL AIRWAY, PB ANESTHESIA PLACEHOLDER (01/31/2025 9:58 AM EDT) Narrative Migue Seay CRNA - 01/31/2025 9:58 AM EDT Migue Seay CRNA 01/31/2025 10:45 AM Airway Date/Time: 01/31/2025 9:58 AM Reason: elective Airway not difficult General Information and Staff Patient location during procedure: OR ANIMAL IMPERSONATOR: Migue Seay CRNA Performed: LORETTA Patient Condition [...] documented as of this encounter Care Teams Mortar Worker Relationship Specialty Start Date End Date Vignesh Pickens MD [address] [facility] [place] [address] PCP - General 12/31/24 Cayla Erazo, DIP STAND LOADER, DNP [address] [facility] [address] [place] [address] Nurse Practitioner Urology 12/20/24 documented as of this encounter
--- OUTSIDE RECORDS SUMMARY | 2025-02-20 07:06 | XMS_ITS | Clinical Summary ---
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 Name Role Phone Arie Dougherty MD [ ] Conditions or Problems Problem Name Problem Code Onset Date Status Entry Date Provider Comment Standard Description Annotate Morbid obesity due to excess calories E66.01 (ICD-10-CM ) 10/25 Active 10/25 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 Morbid (severe) obesity due to excess calories DM II with diabetic PVD E11.51 (ICD-10-CM ) 01/14 Active 01/14 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 Type 2 diabetes mellitus with diabetic peripheral angiopathy without gangrene 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 of suppressive antibiotics/D oxycycline Z79.2 (ICD-10-CM ) 01/14 Active 01/14 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 of antibiotics Benign Essential Hypertension 72073089 (SNOMED CT) 01/14 Resolved 01/14 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 Benign hypertension 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) 20179109 (SNOMED CT) 10/25 Active 10/25 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 Benign hypertension Presence of left artificial knee joint Z96.652 (ICD-10-CM ) 10/25 Active 10/25 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 Presence of left artificial knee joint Hx of MRSA infection 515291397 (SNOMED CT) 10/25 Active 10/25 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 H/O: infectious disease Hx of malignant neoplasm of breast 333649699 (SNOMED CT) 03/02 Resolved 03/02 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 History of malignant neoplasm of breast Cellulitis of left leg 876484824 (SNOMED CT) 03/02 Resolved 03/02 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 Cellulitis of lower limb 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 of suppressive antibiotics Z79.2 (ICD-10-CM ) 01/14 Inactive 01/14 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 residential (current) use of antibiotics Anemia in chronic diseases(docu ment disease) D63.8 (ICD-10-CM ) 01/14 Active 01/14 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 Anemia in other chronic diseases classified elsewhere Chronic respiratory failure with hypoxia 76889286 (SNOMED CT) 01/14 Active 01/14 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 Acute respiratory failure COPD 97439824 (SNOMED CT) 01/14 Active 01/14 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 Chronic obstructive pulmonary disease DM Type II E11.9 (ICD-10-CM ) 01/14 Inactive 01/14 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 Type 2 diabetes mellitus without complications Benign Essential Hypertension 46341878 (SNOMED CT) 01/14 Removed 01/14 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 Benign hypertension Acquired absence of left knee joint 892570471 (SNOMED CT) 03/02 Resolved 03/02 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 History of operative procedure on knee Obesity due to excess calories E66.09 (ICD-10-CM ) 03/02 Resolved 03/02 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 Other obesity due to excess calories 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 of anticoagulant s Z79.01 (ICD-10-CM ) 03/02 Resolved 03/02 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 of anticoagulants Staph epi infection B95.7 (ICD-10-CM ) 03/02 Resolved 03/02 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 Other staphylococcus as the cause of diseases classified elsewhere Diarrhea 81226875 (SNOMED CT) 09/28 Resolved 09/28 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 Diarrhea Staph hominis infection B95.7 (ICD-10-CM ) 09/28 Resolved 09/28 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 Other staphylococcus as the cause of diseases classified elsewhere Staph hominis infection B95.7 (ICD-10-CM ) 09/28 Removed 09/28 Arie Dougherty MD Other staphylococcus as the cause of diseases classified elsewhere Diarrhea 36301460 (SNOMED CT) 09/28 Removed 09/28 Arie Dougherty MD Diarrhea Acquired absence of left knee joint 006268657 (SNOMED CT) 03/02 Removed 03/02 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 History of operative procedure on knee Cellulitis of left leg 886433956 (SNOMED CT) 03/02 Removed 03/02 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 Cellulitis of lower limb Knee, left, subsequent encounter, infection/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 T84.54xD (ICD-10-CM ) 03/02 Active 03/02 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 Infection and inflammatory reaction due to internal left knee prosthesis, subsequent encounter Staph epi infection B95.7 (ICD-10-CM ) 03/02 Removed 03/02 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 Other staphylococcus as the cause of diseases classified elsewhere 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 of anticoagulant s Z79.01 (ICD-10-CM ) 03/02 Removed 03/02 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 residential (current) use of anticoagulants Obesity due to excess calories E66.09 (ICD-10-CM ) 03/02 Removed 03/02 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 Other obesity due to excess calories Hx of malignant neoplasm of breast 633938770 (SNOMED CT) 03/02 Removed 03/02 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 History of malignant neoplasm of breast Medications Medication Instructions Start Date Stop Date Generic Name NDC Provider DOXYCYCLINE MONOHYDRATE 100 MG CAPS Take 1 capsule by mouth twice a day 10/25 doxycycline monohydrate [id number] Arie Dougherty MD ceftriaxone recon soln 2GM IV Q24hrs [facility] 02/18 ceftriaxone recon soln Temi Norris Cubicin RF 800mg IV Q48hrs [facility] 02/18 daptomycin Temi Norris DOXYCYCLINE MONOHYDRATE 100 MG CAPS Take 1 capsule by mouth twice a day 02/03 doxycycline monohydrate 63347229502 Arie Dominguez RF 800mg IV Q48hrs [facility] 02/18 daptomycin Nubia Ervin ceftriaxone recon soln 2GM IV Q24hrs [facility] 02/18 ceftriaxone recon soln Nubiadeidre Ervin IPRATROPIUM-ALBUT MIKE 0.5-2.5 (3) MG/3ML SOLN 3 ml by mouth PRN 01/27 ipratropium-albut mike 52369150559 Nubia Minor Gaviscon 95-358 mg/15 mL suspension by mouth four times a day 30 mL aluminum hydrox-magnesium carb 83125614353 Nubia Minor IPRATROPIUM-ALBUT MIKE 0.5-2.5 (3) MG/3ML SOLN using nebulizer every six hours PRN ipratropium-albut mike 62032219377 Nubia Minor BASAGLAR KWIKPEN 100 UNIT/ML SOPN subcutaneously once a day insulin glargine 22254615562 Nubia Minor MUCUS RELIEF D 60-600 MG KP51Q-SWE by mouth twice a day pseudoephedrine-g uaifenesin 28930452245 Nubia Minor VITAMIN B-12 100 MCG TABS by mouth once a day cyanocobalamin (vitamin b-12) 88009991987 Nubia Minor PERCOCET 5-325 MG TABS 1-2 tablet every four to six hours oxycodone-acetami nophen 50223561005 Nubia Minor BIOTIN 1000 MCG TABS by mouth once a day biotin 14874728320 Nubia Minor GABAPENTIN 800 MG TABS by mouth four times a day as needed gabapentin 23614503942 Nubia Minor ATORVASTATIN CALCIUM 40 MG TABS by mouth every morning Hold while on daptomycin atorvastatin 87936868777 Nubia Minor FERROUS SULFATE 325 (65 Fe) MG TABS by mouth once a day ferrous sulfate 51285000501 Nubia Minor VENLAFAXINE HCL 75 MG TABS by mouth twice a day venlafaxine 04431912489 Nubia Minor CITRACAL MAXIMUM 315-6.25 MG-MCG TABS by mouth twice a day calcium citrate-vitamin d3 56369645903 Nubia Poncho JANUMET XR 50-1000 MG GI65G-UTC by mouth twice a day sitagliptin phos-metformin 78702292425 Nubia Minor GNP HYDROCORTISONE/AL OE 1 % CREA Apply to skin twice a day as needed hydrocortisone acetate 90046190760 Nubia Minor MS CONTIN 15 MG CR-TABS by mouth twice a day morphine 33437134914 Nubia Minor OMEPRAZOLE 20 MG TBEC 2 tablet by mouth once a day omeprazole 39439172659 Nubia Minor DOXYCYCLINE HYCLATE 100 MG TABS Take 1 tablet by mouth twice a day 01/11 doxycycline hyclate 64180334871 Nubia Minor CARVEDILOL 12.5 MG TABS by mouth twice a day carvedilol 16424917335 Nubia Minor PROMETHAZINE HCL 25 MG TABS by mouth three times a day as needed promethazine 82886723167 Nubia Minor TIZANIDINE HCL 4 MG TABS by mouth three times a day as needed tizanidine 53409305324 Nubia Minor LACTULOSE 10 GM/15ML SOLN 30 ml by mouth as needed lactulose 78027261289 Nubia Minor COLACE 100 MG CAPS by mouth twice a day as needed docusate sodium 68013723335 Nubia Minor XARELTO TABLET 15 mg 15 mg Take 1 by mouth once a day XARELTO TABLET 15 mg 15 mg Nubia Minor ANASTROZOLE 1 MG TABS by mouth once a day anastrozole 23624848493 Nubia Minor ACETAMINOPHEN 500 MG TABS by mouth every six hours PRN acetaminophen 37644376042 Nubia Minor LOPERAMIDE HCL 2 MG CAPS by mouth once a day PRN loperamide 11832504377 Nubia Minor ASCORBIC ACID 500 MG TABS by mouth 0.5 tab am and 0.5 tab pm ascorbic acid (vitamin c) 61871817779 Nubia Minor BACLOFEN 10 MG TABS by mouth three times a day baclofen 99801930372 Nubia Minor BREO ELLIPTA 100-25 MCG/ACT AEPB every morning fluticasone furoate-vilantero l 91525539613 Nubia Minor BUMETANIDE 2 MG TABS by mouth twice a day bumetanide 71683609499 Nubia Minor CALCIUM 600 1500 (600 Ca) MG TABS by mouth twice a day calcium carbonate 47406511790 Nubia Minor D3 HIGH POTENCY 10 MCG (400 UNIT) TABS by mouth 2.5 units am and 2.5 units pm cholecalciferol (vitamin d3) 25257530175 Nubia Minor PLAVIX 75 MG TABS by mouth every morning clopidogrel 17983714065 Nubia Minor VITAMIN B-12 1000 MCG TABS by mouth every morning cyanocobalamin (vitamin b-12) 98534420812 Nubia Minor FLONASE ALLERGY RELIEF 50 MCG/ACT SUSP intranasally every morning fluticasone propionate 14023641875 Nubia Minor FOSAMAX 70 MG TABS by mouth once a week alendronate 76029154689 Nubia Minor GLIPIZIDE ER 2.5 MG FN92U-HSH by mouth every morning 0.5 tab glipizide 22256407567 Nubia Minor LANTUS SOLOSTAR 100 UNIT/ML SOPN 8 unit subcutaneously every night insulin glargine 31450901622 Nubia Minor IPRATROPIUM-ALBUT MIKE 0.5-2.5 (3) MG/3ML SOLN 3 ml by mouth PRN 01/27 ipratropium-albut mike 21011920692 Nubia Minor JARDIANCE 10 MG TABS by mouth every morning empagliflozin 57410875824 Nubia Minor MAGNESIUM OXIDE 400 MG TABS by mouth twice a day magnesium oxide 01902452859 Nubia Minor METFORMIN HCL 1000 MG TABS by mouth twice a day metformin 08610782557 Nubia Minor MULTI-VITAMIN HP/MINERALS CAPS by mouth once a day multivitamin,tx-m inerals 41101986263 Nubia Minor ONDANSETRON HCL 4 MG TABS by mouth twice a day PRN ondansetron hcl 14861432717 Nubia Minor PANTOPRAZOLE SODIUM 20 MG TBEC by mouth once a day pantoprazole 20052134472 Nubia Minor PREGABALIN 50 MG CAPS by mouth three times a day pregabalin 58904313713 Nubia Isaac SENNA 8.6 MG TABS by mouth 2 tabs PRN sennosides 05974421957 Nubia Isaac SPIRONOLACTONE 50 MG TABS by mouth once a day spironolactone 85184946069 Nubia Isaac TRAZODONE HCL 150 MG TABS by mouth once a day 2 tabs trazodone 12288609759 Nubia Isaac VALSARTAN 80 MG TABS by mouth twice a day valsartan 06742610276 Nubia Isaac VENLAFAXINE HCL ER 150 MG PS54H-IFD by mouth every morning venlafaxine 49984512409 Nubia Isaac VANCOMYCIN HCL SOLR 1gm IV q 12 x 6wks [facility] [phone] 10/05 VANCOMYCIN HCL SOLR 46584584966 Libby Cabello JIMI MS CONTIN 15 MG CR-TABS by mouth twice daily 01/11 MORPHINE SULFATE 37743669531 Arie Dougherty MD PERCOCET 5-325 MG TABS 1-2 tabs, every four to six hours, do not exceed 4000mg of acetaminophen per day 01/11 OXYCODONE-ACETAMI NOPHEN 75602026029 Arie Dougherty MD [facility] IRON 325 (65 Fe) MG TABS by mouth daily 01/11 FERROUS SULFATE 29858179293 Arie Dougherty MD COLACE 100 MG CAPS by mouth twice daily as needed 02/19 DOCUSATE SODIUM 35823990257 Arie Dougherty MD DOXYCYCLINE HYCLATE 100 MG TABS take 1 tab po BID 02/19 DOXYCYCLINE HYCLATE 00539623023 Arie Dougherty MD XARELTO TABLET Take one by mouth once daily. 01/11 RIVAROXABAN TABS 89304469285 Arie Dougherty MD COUMADIN 5 MG ORAL TABLET by mouth, AC dinner 10/17 WARFARIN SODIUM 49897705830 Arie Dougherty MD VANCOMYCIN HCL SOLR 1gm IV q 12 x 6wks [facility] [phone] 08/22 VANCOMYCIN HCL SOLR 24351600284 [facility] VANCOMYCIN HCL SOLR 750 mg IV q 12 x 6wks [facility] [phone] 03/31 VANCOMYCIN HCL SOLR 31932180916 [facility] VANCOMYCIN HCL SOLR 750 mg IV q 12 x 6wks [facility] [phone] 08/22 VANCOMYCIN HCL SOLR 90038712168 Daily Lewis RN VENLAFAXINE HCL 75 MG TABS by mouth twice daily 01/11 VENLAFAXINE HCL 96903835129 Kulwant P PROMETHAZINE HCL 25 MG TABS by mouth three times a day as needed 01/11 PROMETHAZINE HCL 94853828929 Kulwant P B-12 100 MCG TABS by mouth daily 09/29 CYANOCOBALAMIN 56652231577 Kulwant P JANUMET XR 50-1000 MG KL99L-LWM by mouth twice daily 01/11 SITAGLIPTIN-METFO RMIN HCL 25840433678 Kulwant P TIZANIDINE HCL 4 MG TABS by mouth three times a day as needed 01/11 TIZANIDINE HCL 13788748224 Kulwant P GABAPENTIN 800 MG TABS by mouth four times a day as needed 01/11 GABAPENTIN 18792832553 Kulwant P CARVEDILOL 12.5 MG TABS by mouth twice daily 01/11 CARVEDILOL 84498906099 Kulwant P ANASTROZOLE 1 MG TABS by mouth daily 01/11 ANASTROZOLE 02716124501 Kulwant P CITRACAL MAXIMUM 315-6.25 MG-MCG TABS by mouth twice daily 01/11 CALCIUM CITRATE-VITAMIN D 76332075468 Kulwant P [facility] OMEPRAZOLE 20 MG TBEC 2 tabs by mouth once daily 01/11 OMEPRAZOLE 71176602440 Kulwant P BIOTIN 1000 MCG TABS by mouth daily 01/11 BIOTIN 99254863714 Kulwant P ATORVASTATIN CALCIUM 40 MG TABS by mouth at bedtime 01/11 ATORVASTATIN CALCIUM 16019586619 Kulwant P COUMADIN 5 MG ORAL TABLET by mouth, AC dinner 05/19 WARFARIN SODIUM 63794867894 Kulwant P LACTULOSE SOLN 30mL by mouth as needed 02/19 LACTULOSE SOLN 88367615114 Kulwant P HYDROCORTISONE ACETATE 1 % CREA apply topically twice a day as needed 10/25 HYDROCORTISONE ACETATE 14425956035 Kulwant P MS CONTIN 15 MG CR-TABS by mouth twice daily 11/20 MORPHINE SULFATE 49034605945 Kulwant P [facility] IRON 325 (65 Fe) MG TABS by mouth daily 11/20 FERROUS SULFATE 18024465744 Kulwant P COLACE 100 MG CAPS by mouth twice daily as needed 02/19 DOCUSATE SODIUM 12921702391 Kulwant P PERCOCET 5-325 MG TABS 1-2 tabs, every four to six hours, do not exceed 4000mg of acetaminophen per day 11/20 OXYCODONE-ACETAMI NOPHEN 80717572649 Kulwant P VANCOMYCIN HCL SOLR 1gm IV q 12 x 6wks [facility] [phone] 08/22 VANCOMYCIN HCL SOLR 66952843111 [facility] Medications Administered No information available. Allergies, Adverse [...] or Plasma Office Visit: rm #8 DIET BUNDLER yes Dietary management education, guidance, and counseling (procedure) CIGARET SMKG yes Tobacco smoking status Lab Report: SEDIMENTATION RA TE ESR 25 mm/h 0-30 Erythrocyte sedimentation rate by Westergren method Chart Maintenance BASO# 0.10 Basophils [#/ volume] [...] mg/dL Glucose [Mass/volume] in Serum or Plasma Clinical Lists Update: Prelo ad VAPE_USE Never Tobacco smok ing status Office Visit: Office Visit: 9 - U MEDS REVIEW Done Documenta tion of current medications (procedure) ORALTOBACUSE Never Tobacco smoking status SMOK ADVICE yes Smoking c essation education (procedure) SMOK STATUS Former smoker Tobacco smoking status Plan of Care Type Date Detail Pending [...] Oral Antibiotic CPT-ca Continue IV antibiotics 2022 CPT-25451 CMP [id number] CBC with Differential 2022 CPT-71798 C- reactive protein [id number], [id number] CPK CPT-J7030 IV Fluids CPT-sl STAT Labs CPT-sl STAT Labs CPT-sl STAT Labs CPT-69064 C- reactive protein CPT-13263 Sedimentation Rate (ESR) 201 02/20/04 CPT-27326 Vancomycin Trough CPT-48802 CMP [id number] CBC with Differential 2015 CPT-31919 C- reactive protein CPT-28047 Sedimentation Rate (ESR) 201 01/31/26 CPT-ca Continue IV antibiotics 2015 CPT-wpc Weekly PICC Line Care 09/28 CPT-06925 CMP [id number] CBC with Differential 2015 CPT-73932 Vancomycin Trough CPT-37063 C- reactive protein CPT-09812 Sedimentation Rate (ESR) 201 01/31/07 CPT-cdpcr C-Diff PCR CPT-isi New IV antibiotic CPT-18101 PICC Line Insertion CPT-36442 [facility] [id number] CBC with Differential 2015 CPT-68336 C- reactive protein CPT-11340 Sedimentation Rate (ESR) 201 01/30/30 CPT-DC Discontinue IV antibiotics 2 CPT-PICREM PICC Removal CPT-ca Continue IV antibiotics 2015 CPT-45737 CMP [id number] CBC with Differential 2015 CPT-43706 C- reactive protein CPT-76047 Sedimentation Rate (ESR) 201 01/27/01 CPT-86231 Vancomycin Trough CPT-ca Continue IV antibiotics 2015 CPT-54400 CMP [id number] CBC with Differential 2015 CPT-38833 C- reactive protein CPT-43339 Sedimentation Rate (ESR) 201 01/27/20 CPT-05407 Vancomycin Trough CPT-ca Continue IV antibiotics 2015 Vital Signs Date Name Value Unit Description BMI (Body Mass Index) 37.55 kg/m2 Bod y Mass Index (Ratio) Body Temperature 97.3 [degF] temperat ure E&M BP Diastolic 74 mm[Hg] blood pressu re, diastolic BP Systolic 126 mm[Hg] blood pressur e, systolic Heart Rate 64 /min pulse rate Height 63 [in_us] height E&M Respiratory Rate 16 /min respirat ory rate E&M Weight Measured 212.0 [lb_av] weight E& M Weight Measured 212.0 [lb_av] weight E& M Immunizations No information available. Advance Directives Directive Description Start Date ADVANCED DIRECTIVES ESTABLISHED DO NOT RESUSCITATE IF RESULTS OF A STROK E, OTHERWISE FULL CODE. NO ADVANCED DIRECTIVES ESTABLISHED 03/03
--- OUTSIDE RECORDS SUMMARY | 2025-02-20 07:06 | XMS_ITS | Clinical Summary ---
Author Organization 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 venlafaxine (EFFEXOR) 75 mg Oral TabletIndication s:Depression, major, recurrent, in remission Take 1 Tab by mouth 3 times daily. 90 Tab 12 09/13/2016 Active Active Problems Problem Noted Date Diagnosed Date Depression, major, recurrent, in remission 03/21 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 Date Comments Stroke (HCC) Breast cancer (HCC) Left hemiparesis (HCC) S/P mastectomy Diabetes mellitus (HCC) Depression Social History Tobacco Use Types Packs/Day Years Used Date Smoking Tobacco: Never Smokeless Tobacco: Never Tobacco Cessation:Counseling Given: No Alcohol Use Standard Drinks/Week Comments Not Currently 0 (1 standard drink = 0.6 oz pur e alcohol) Comments Unknown Sex and Gender Information Value Date Recorded Sex Assigned at Not on file Legal Sex Female 11:23 AM EDT Gender Identity Not on file Sexual Orientation Not on file Obstetrics History Plan of Treatment Health Maintenance Due Date Last Done Comments Wellness Exam Medicare 1962 Hepatitis C Screening 1977 DTaP/TDaP/Td (1 - Tdap) 1978 Cervical Cancer Screening 1980 Pap Smear 1980 HPV/Pap Cotest 1989 Breast Cancer Screening 1999 Cologuard 2004 Colon Cancer Screening 2004 Colonoscopy 2004 FIT 2004 Sigmoidoscopy 2004 Virtual Colonography 2004 Pneumococcal Vaccine 50+ (1 of 1 - PCV) 2009 Zoster (1 of 2) 2009 COVID-19 Vaccine (2023-2 5 season) 2024 Bone Density Screening 2024 Influenza Vaccine (Season Ended) 2025 Hepatitis B Vaccine Aged Out No longe r eligible based on patient's age to complete this topic Meningococcal B Vaccine Aged Out No l onger eligible based on patient's age to complete this topic [place] PART A AND B [place] [id number] Care Teams Linotype Worker Relationship Specialty Start Date End Date Andrei Carrasquillo Sr., MD [address] [place] [id number] PCP - General Slate Cutter 03/17/16
--- OUTSIDE RECORDS SUMMARY | 2025-02-20 07:06 | XMS_ITS | Clinical Summary ---
Author Organization [facility] ([place], [place], [place], [place]) Address [address] [place] [address] Care Team Providers Care Armature Winder Repair Name Role Phone [facility], Provider Not In The System MD Primary Care Provider Unavailable Allergies Active Allergy Reactions Criticality Noted Date Comments Hydrocodone-Acetaminophen 11/25/2023 Lips Swelling Sulfa (Sulfonamide Antibiotics) Anaphylaxis High Per pt Medications anastrozole (ARIMIDEX) 1 mg tablet Take 1 tablet (1 mg total) by mouth daily. Active acetaminophen (TYLENOL) 500 MG tablet Take 1 tablet (500 mg total) by mouth every 6 (six) hours as needed for Pain. Active carvediloL (COREG) 12.5 MG tablet Take 1 tablet (12.5 mg total) by mouth 2 (two) times daily. Active loperamide (Anti-Diarrhea L, loperamide,) 2 mg capsule Take 1 capsule (2 mg total) by mouth every 4 (four) hours as needed for Diarrhea. Active baclofen (LIORESAL) 10 MG tablet Take 1 tablet (10 mg total) by mouth 3 (three) times daily. Active clopidogreL (PLAVIX) 75 mg tablet Take 1 tablet (75 mg total) by mouth daily. Active ipratropium-al buteroL (DUO-NEB) 0.5 mg-3 mg(2.5 mg base)/3 mL nebulizer solution Inhale 3 mLs by mouth via inhaler as needed. Active pantoprazole (PROTONIX) 20 MG tablet Take 1 tablet (20 mg total) by mouth daily. Active rivaroxaban (XARELTO) 15 mg tablet Take 1 tablet (15 mg total) by mouth daily with dinner. Active fluticasone propionate (FLONASE) 50 mcg/actuation nasal spray 1 spray by Nasal route 2 (two) times daily. Active multivitamin per tablet Take 1 tablet by mouth daily. Active ferrous sulfate 325 (65 FE) MG tablet Take 1 tablet (325 mg total) by mouth daily with breakfast. Active venlafaxine (EFFEXOR-XR) 150 MG 24 hr capsule Take 1 capsule (150 mg total) by mouth daily Take with 75mg to equal 225mg daily. Active ascorbic acid, vitamin C, (VITAMIN C) 500 MG tablet Take 1 tablet (500 mg total) by mouth 2 (two) times daily. Active cyanocobalamin (VITAMIN B-12) 1000 MCG tablet Take 1 tablet (1,000 mcg total) by mouth daily. Active fluticasone furoate-vilant Jamie (Breo Ellipta) 100-25 mcg/dose DsDv Inhale 1 puff by mouth via inhaler daily. Active atorvastatin (LIPITOR) 40 MG tablet Take 1 tablet (40 mg total) by mouth nightly. Active azelastine (ASTELIN) 137 mcg (0.1 %) nasal spray 2 sprays by Nasal route 2 (two) times daily Use in each nostril as directed. Active PARoxetine (PAXIL) 10 MG tablet Take 1 tablet (10 mg total) by mouth every morning. Active cholecalcifero l, vitamin D3, 25 mcg (1,000 unit) capsule Take 1 capsule (1,000 Units total) by mouth 2 (two) times daily. Active ARIPiprazole (ABILIFY) 2 MG tablet Take 1 tablet (2 mg total) by mouth daily. Active traZODone (DESYREL) 300 MG tablet Take 1 tablet (300 mg total) by mouth nightly. Active magnesium oxide (MAG-OX) 400 mg (241.3 mg magnesium) tablet Take 1 tablet (400 mg total) by mouth 2 (two) times daily. Active diphenhydrAMIN E (BENADRYL) 25 mg tablet Take 1 tablet (25 mg total) by mouth 2 (two) times daily as needed for Sleep or Allergies. Active MAGIC BUTT CREAM, ZINC/HC/NYSTAT IN, Apply topically 3 (three) times daily as needed. Active ondansetron (ZOFRAN) 4 MG tablet Take 1 tablet (4 mg total) by mouth 4 (four) times daily as needed for Nausea. Active nitrofurantoin , macrocrystal-m onohydrate, (MACROBID) 100 MG capsule Take 1 capsule (100 mg total) by mouth 2 (two) times daily. Active insulin glargine,hum.r ec.anlog (BASAGLAR KWIKPEN U-100 INSULIN SUBQ) Inject 38 Units subcutaneously nightly. Active fentaNYL (DURAGESIC) 12 mcg/hr patch Place 1 patch onto the skin every third day. Active pregabalin (LYRICA) 50 MG capsule Take 1 capsule (50 mg total) by mouth 2 (two) times daily. Active venlafaxine (EFFEXOR-XR) 150 MG 24 hr capsule Take 1 capsule (150 mg total) by mouth daily. Active bumetanide (BUMEX) 1 MG tablet Take 1 tablet (1 mg total) by mouth daily. Active glipiZIDE (GLUCOTROL XL) 2.5 MG 24 hr tablet Take 1 tablet (2.5 mg total) by mouth daily. Active empagliflozin (Jardiance) 25 mg tablet Take 1 tablet (25 mg total) by mouth daily. Active bumetanide (BUMEX) 1 MG tablet Take 1 tablet (1 mg total) by mouth daily as needed (Edema). Active Active Problems Problem Noted Date Diagnosed Date Critical limb ischemia of left lower extremity 0 12/09/2023 GEOVANNI (acute kidney injury) 10/05/2023 Stroke 01/04/2023 Hypertension 01/04/2023 Diabetes mellitus 01/04/2023 COPD (chronic obstructive pulmonary disease) Chronic respiratory failure 01/04/2023 Arthritis 01/04/2023 Restrictive lung disease 01/04/2023 Former smoker 01/04/2023 Cellulitis of left knee 01/04/2023 Acute kidney injury 01/04/2023 Dehydration with hyponatremia 01/04/2023 Hyperlipidemia 01/04/2023 Family History 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 Relation Name Comments Depression Other Hypertension Other Relation Name Status Comments Other Social History Tobacco Use Types Packs/Day Years Used Date Smoking Tobacco: Former Cigarettes 1 30 1 08/22/1991 - 06/22/2022 Passive Smoke Exposure: Past Smokeless Tobacco: Never Tobacco Cessation:Counseling Given: Not Answered Alcohol Use Standard Drinks/Week Comments Never 0 (1 standard drink = 0.6 oz pur e alcohol) PRAPARE - Transportation Answer Date Re corded In the past 12 months, has l ack of transportation kept you from medical appointments or from getting medications? No 10/07/2023 Lack of Transportation (Non-Medical) Not on file 10/07/2023 Utilities Answer Date Recorded In the past 12 months, has t he electric, gas, oil, or water company threatened to shut off services in your home? No 12/09/2023 Food Insecurity Answer Date Recorded Within the past 12 months, y ou worried that your food would run out before you got money to buy more. Never true 12/09/2023 Within the past 12 months, t he food you bought just didn't last and you didn't have money to get more. Never true 12/09/2023 Transportation Needs Answer Date Record ed In the past 12 months, has l ack of reliable transportation kept you from medical appointments, meetings, work or from getting things needed for daily living? No 12/09/2023 Financial Resource Strain Answer Date R ecorded How hard is it for you to pa y for the very basics like food, housing, medical care, and heating? Would you say it is: Not hard at all 12/09/2023 Employment Answer Date Recorded Do you want help finding or keeping work or a job? I do not need or want help 12/09/2023 Family and Community Support Answer Anish e Recorded If for any reason you need h elp with day-to-day activities such as bathing, preparing meals, shopping, managing finances, etc., do you get the help you need? I get all the help I need 12/09/2023 Feeling Lonely or Isolated 0 12/08 Educational Attainment Answer Date Preston rded Do you speak a language other than Thai at ho me? No 12/09/2023 Do you want help with school or training? For example, starting or completing job training or getting a high school diploma, GED or equivalent. No 12/09/2023 Physical Activity Answer Date Recorded Number of minutes of exercise per week 0 12/09/2023 Substance Use Answer Date Recorded How many times in the past y ear have you used prescription drugs for non-medical reasons? Never 12/09/2023 How many times in the past year have you used il legal drugs? Never 12/09/2023 Comments No Sex and Gender Information Value Date Recorded Sex Assigned at Not on file Legal Sex Female 6:04 PM CDT Gender Identity Not on file Sexual Orientation Not on file Last Filed Vital Signs Vital Sign Reading Time Taken Comments Blood Pressure 144/66 12/13/2023 9:35 AM EDT Pulse 83 12/13/2023 4:09 AM EDT Temperature 36.6 C (97.9 F) 12/13/2023 9:35 AM EDT Respiratory Rate 16 12/13/2023 9:35 AM EDT Oxygen Saturation 95% 12/13/2023 9:35 AM EDT Inhaled Oxygen Concentration 28% 10/08/2023 8 :16 PM EST Weight 96.2 kg (212 lb) 12/09/2023 12:16 PM EDT Height 162.6 cm (5' 4 ) 12/09/2023 12:16 PM EDT Body Mass Index 36.39 12/09/2023 12:16 PM EDT Plan of Treatment Health Maintenance Due Date Last Done Comments CT Colonography 1959 Colonoscopy 1959 Colorectal Cancer Screening 1959 DXA SCAN 1959 Diabetic Kidney Health Evalu ation (KED) 1959 FOBT/FIT 1959 Fit-DNA (Cologuard) 1959 Sigmoidoscopy 1959 Diabetic Eye Exam 1969 Depression Screening (12+) 1971 HIV Screening 1974 Hepatitis C Screening 1977 DTAP/TDAP/TD VACCINES (1 - Tdap) 1978 Pneumococcal 50+ years (1 of 2 - PCV) 1978 Pap Smear 1980 Breast Cancer Screening 1999 Shingles Vaccine (Zoster) (1 of 2) 2009 Medicare Initial AWV G0438 04/23/2015 Respiratory Syncytial Virus (RSV) Adult or (1 - Risk 60-74 years 1-dose series) 2019 Hemoglobin A1C 02/24/2024 11/25/2023, 09/22, 01/05/2023 COVID-19 VACCINE ( season) 04/22/202404/2021, 09/09/2020 Falls Risk Screening 08/22/2024 Tobacco Cessation Counseling and Screening (12+) 12/08/2024 12/09/2023 Influenza Vaccine (Season Ended) 2025 Lipid Panel 11/06/2027 11/05/2024 Procedures Procedure Name Priority Date/Time Associated Diagnosis Comments HEMOGLOBIN A1C Routine 11/25/2023 11:24 AM EDT Preop testing from Last 3 Months or Most Recently Relevant to Health Maintenance Results * Hemoglobin A1c (11/25/2023 11:24 AM EDT) Hemoglobin A1C 11.7 % 11/25/2023 5:31 PM EDT [facility] Comment: Hemoglobin A1C levels are related to mean glucose during the preceding 2-3 months. Less than 7% demonstrates glycemic control in diabetic patients. Hemoglobin AlC % Suggested Diagnosis > or = 6.5 Diabetic 5.7 - 6.4 Prediabetic <5.7 Non-diabetic eAVG Glucose 289.09 mg/dL 11/25/2023 5:31 PM EDT [facility] Blood Venipuncture / Unknown 11/25/2023 11:24 AM EDT 11/25/2023 1:46 PM EDT us Radha Ram MD LAB BLOOD ORDERABLES Fi nal Result [facility] [address] [phone] from Last 3 Months or Most Recently Relevant to Health Maintenance Insurance [facility] [place] [id number] MEDICARE PART A B [place] Advance Directives For more information, please contact: [phone] * Full Code (Latest Code Status on File) Date Activated Date Inactivated Comments 12/09/2023 4:14 PM 12/13/2023 3:22 PM * Full Code Date Activated Date Inactivated Comments 12/09/2023 11:38 AM 12/09/2023 4:14 PM * Full Code Date Activated Date Inactivated Comments 10/05/2023 3:14 AM 10/09/2023 2:21 AM -Attempt Res uscitation if person has no pulse and is not breathing. -If no pulse or not breathing attempt CPR/CODE. -Call Rapid Response if patient is in distress. * Full Code Date Activated Date Inactivated Comments 01/04/2023 10:05 PM 01/11/2023 4:06 PM Healthcare Agents on File Name Relationship Healthcare Agent Relationshi p Communication Val Dante Sister First Alternate Healthcare Decision-Maker Care Teams Armature Winder Repair Relationship Specialty Start Date End Date [facility], Provider Not In The System, [place] [address] PCP - General 10/05/23
--- OUTSIDE RECORDS SUMMARY | 2025-02-20 07:06 | XMS_ITS | Encounter Summary ---
Author Organization [facility] Address [address] [place] [address] Care Team Providers Care Bag Machine Operator Name Role Phone Cayla Erazo APRN, DNP Unavailable [phone] Vignesh Pickens MD Primary Care Provider [phone] Encounter Details Date Type Department Care Team (Late st Contact Info) Description 01/17/2025 Telephone [facility] [address], [address] [place] [address] Ceci Mitchell MD [address] [place] [address] Social History Tobacco Use Types Packs/Day Years [...] the past 12 m [facility], were you homeless or living in a [...] drink first t rodríguez in the morning (EYE-LIVE AMMUNITION INSPECTOR) to steady your nerves or to get [...] on file documented as of this encounter Plan of Treatment Upcoming Encounters Date Type Department Care Team (Late st Contact Info) Description 03/07/2025 10:00 AM EDT Office Visit [facility] [address] [place] [address] Doug Chapman MD [id number] [place] [address] 03/27/2025 10:30 AM EDT Appointment [facility] Ultrasound [address]nd [place] [address] 03/27/2025 11:50 AM EDT Clinical Support Medical [facility] Building Lab [address] [place] [address] 03/27/2025 1:00 PM EDT Office Visit [facility] [address] [facility], [address] [place] [address] Cayla Erazo, MANAGER HUMAN RESOURCES, DNP [id number] [place] [address] 05/16/2025 8:00 AM EDT Office Visit [facility] [place] [address] [facility] [address], [address] [place] [address] Karly Gracia MD [address] [place] [address] 06/07/2025 1:00 PM EDT Office Visit [facility] [address] [place] [address] Tom Iraheta MD [address] [place] [address] Scheduled Orders Name Type Priority Associated Diagnoses Orde r Schedule Urine Culture Microbiology Routine Urinary incontinence without sensory awareness Expected: 01/17/2025 (Approximate), Expires: 07/20/2026 documented as of this encounter Goals Goal Patient Goal Type Associated Problems Recent Progress Patient-Stated? Author Autogenerat ed Goal Care Plan Autogenerated Problem No Eugenia Hodge documented as of this encounter Visit Diagnoses Diagnosis Urinary incontinence without sensory awareness- Primary Incontinence without sensory awareness documented in this encounter Additional Health Concerns [...] documented as of this encounter Care Teams Bag Machine Operator Relationship Specialty Start Date End Date Vignesh Pickens MD [address] [place] [address] PCP - General 12/31/24 Cayla Erazo APRN, FREDERICK [address] [place] [address] Nurse Practitioner Urology 12/20/24 documented as of this encounter
--- OUTSIDE RECORDS SUMMARY | 2025-02-20 07:06 | XMS_ITS | Encounter Summary ---
Author Organization [facility] Address [address] [place] [address] Care Team Providers Care Sailor Name Role Phone Cayla Erazo APRN, DNP Unavailable [phone] Vignesh Pickens MD Primary Care Provider [phone] Encounter Details Date Type Department Care Team (Latest Contact Info) Description 12/31/2024 Travel Social History Tobacco Use Types Packs/Day Years [...] drink first t rodríguez in the morning (EYE-UROLOGY SURGEON) to steady your nerves or to get [...] Description 03/07/2025 10:00 AM EDT Office Visit [facility] [address] [place] [address] Doug Chapman MD [address] [facility] [address] [place] [address] 03/27/2025 10:30 AM EDT Appointment [facility] Ultrasound [address] [place] [address] 03/27/2025 11:50 AM EDT Clinical Support Medical Office Building Lab [address] [place] [address] 03/27/2025 1:00 PM EDT Office Visit Medical Office Building Urology [address] [facility], [address] [place] [address] Cayla Erazo, ANALYTICAL ENGINEER, DNP [id number] [place] [address] 05/16/2025 8:00 AM EDT Office Visit [facility] [place] [address] [facility], [address] [place] [address] Karly Gracia MD [address] [place] [address] 06/07/2025 1:00 PM EDT Office Visit [facility] [address] [place] [address] Tom Iraheta MD [address] [place] [address] documented as of this encounter Visit Diagnoses Not on filedocumented in this encounter Additional Health Concerns Infection Onset Date Last Indicated 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
--- OUTSIDE RECORDS SUMMARY | 2025-02-20 07:06 | XMS_ITS | Encounter Summary ---
Author Organization [facility] Address [address] [place] [address] Care Team Providers Care Wheel Aligner Name Role Phone Cayla Erazo APRN, DNP Unavailable [phone] Vignesh Pickens MD Primary Care Provider [phone] Encounter Details Date Type Department Care Team (Late st Contact Info) Description 01/16/2025 Telephone [facility] [address] [place] [address] Ceci Mitchell MD [address] [place] [address] Social History Tobacco Use Types [...] drink first t rodríguez in the morning (EYE-OBSTETRICS TECH) to steady your nerves or to get [...] on file documented as of this encounter Miscellaneous Notes * Telephone Encounter - Eugenia Hodge - 01/16/2025 10:36 AM EDT Spoke with [facility] , scheduled 01/31 surgery with 8am arrival time, facility is aware of anesthesia preop screening call and arrival time call prior to surgery. Urine culture orderto faxed to facility to be completed divya documented in this encounter Plan of Treatment Upcoming Encounters Date Type Department Care Team (Late st Contact Info) Description 03/07/2025 10:00 AM EDT Office Visit [facility] Urology [address] [place] [address] Doug Chapman MD [address] [facility] [place] [address] 03/27/2025 10:30 AM EDT Appointment [facility] Ultrasound [address] [place] [address] 03/27/2025 11:50 AM EDT Clinical Support Medical Office Building Lab [address] [place] [address] 03/27/2025 1:00 PM EDT Office Visit Medical Office Building Urology [address] [facility], [address] [place] [address] Cayla Erazo APRN, FREDERICK [address] [facility] [address] [place] [address] 05/16/2025 8:00 AM EDT Office Visit [facility] [place] [address] [facility], [address] [place] [address] Karly Gracia MD [address] [place] [address] 06/07/2025 1:00 PM EDT Office Visit [facility] [address] [place] [address] Tom Iraheta MD [address] [place] [address] documented as of this encounter [...] documented as of this encounter Care Teams Wheel Aligner Relationship Specialty Start Date End Date Vignesh Pickens MD [address] [place] [address] PCP - General 12/31/24 Cayla Erazo APRN, DNP [address] [place] [address] Nurse Practitioner Urology 12/20/24 documented as of this encounter
--- OUTSIDE RECORDS SUMMARY | 2025-02-20 07:06 | XMS_ITS | Encounter Summary ---
Author Organization [facility] Address [address] [place] [address] Care Team Providers Care Smog Technician Name Role Phone Daniel Barba MD Primary Care Provider [phone] Cayla Erazo APRN, FREDERICK Unavailable [phone] Encounter Details Date Type Department Care Team ([facility] st Contact Info) Description 12/20/2024 Orders Only External Location [address] [place] [address] Provider, External Social History Tobacco Use Types Packs/Day Years [...] any time in the past 12 m [facility], were you homeless or living in a [...] drink first t rodríguez in the morning (EYE-PROCESSING ASSISTANT) to steady your nerves or to get [...] as of this encounter Functional Status * Over the [...] Arroyo LPN documented as of this encounter Plan of Treatment Upcoming Encounters Date Type Department Care Team (Late st Contact Info) Description 03/07/2025 10:00 AM EDT Office Visit [facility] Urology [address], [address] [place] [address] Doug Chapman MD [address] [address] 03/27/2025 10:30 AM EDT Appointment [facility] Ultrasound [address] [place] [address] 03/27/2025 11:50 AM EDT Clinical Support Medical Office Building Lab [address] [place] [address] 03/27/2025 1:00 PM EDT Office Visit Medical [facility] Building Urology [address] [facility], [address] [place] [address] Cayla Erazo APRN, DNP [address] [facility] [address] [place] [address] 05/16/2025 8:00 AM EDT Office Visit [facility] [place] [address] [facility], [address] [place] [address] Karly Gracia MD [address] [place] [address] 06/07/2025 1:00 PM EDT Office Visit [facility] [address] [place] [address] Tom Iraheta MD [address] [place] [address] documented as of this encounter Procedures Procedure Name Priority Date/Time Associated Diagnosis Comments POC ULTRASOUND 12/20/2024 documented in this encounter Results * POC Imaging (12/20/2024) Anatomical Region Laterality Modality Pelvis Other 12/20/2024 us External Provider IMG POINT OF CARE ULTRASOUND F inal Result documented in this encounter Visit Diagnoses [...] documented as of this encounter Care Teams Smog Technician Relationship Specialty Start Date End Date Daniel Barba MD [address] [place] [address] PCP - General 01/02/21 12/30/24 Cayla Erazo, LIZANDRO, DNP [address] [place] [address] Nurse Practitioner Urology 12/20/24 documented as of this encounter
--- OUTSIDE RECORDS SUMMARY | 2025-02-20 07:06 | XMS_ITS | Encounter Summary ---
Author Organization [facility] Address [address] [place] [address] Care Team Providers Care Dockworker Name Role Phone Cayla Erazo APRN, DNP Unavailable [phone] Vignesh Pickens MD Primary Care Provider [phone] Encounter Details Date Type Department Care Team (Latest Contact Info) Description 01/03/2025 Travel Social History Tobacco Use Types Packs/Day [...] any time in the past 12 m [facility], were you homeless or living [...] drink first t rodríguez in the morning (EYE-ROUGH PATCHER) to steady your nerves or to get [...] Description 03/07/2025 10:00 AM EDT Office Visit [facility] [address] [place] [address] Doug Chapman MD [address] [facility] [address] [place] [address] 03/27/2025 10:30 AM EDT Appointment [facility] Ultrasound [address] [place] [address] 03/27/2025 11:50 AM EDT Clinical Support Medical Office Building Lab [address] [place] [address] 03/27/2025 1:00 PM EDT Office Visit Medical Office Building Urology [address] [facility], [address] [place] [address] Cayla Erazo, RECRUITING INTERNSHIP, DNP [id number] [place] [address] 05/16/2025 8:00 AM EDT Office Visit [facility] [place] [address] [facility], [address] [place] [address] Karly Gracia MD [address] [place] [address] 06/07/2025 1:00 PM EDT Office Visit [facility] [address] [place] [address] Tom Iraheta MD [address] [place] [address] documented as of this encounter [...] documented as of this encounter Care Teams Dockworker Relationship Specialty Start Date End Date Vignesh Pickens MD [address] [place] [address] PCP - General 12/31/24 Cayla Erazo APRN, DNP [address] [place] [address] Nurse Practitioner Urology 12/20/24 documented as of this encounter
--- OUTSIDE RECORDS SUMMARY | 2025-02-20 07:06 | XMS_ITS | Clinical Summary ---
Author Organization [facility] Address [address] [place] [address] Care Team Providers Care Printer Operator Name Role Phone Cayla Erazo APRN, DNP Unavailable [phone] Vignesh Pickens MD Primary Care Provider [phone] Allergies Active Allergy Reactions Criticality Noted Date Comments Hydrocodone Unknown - Patient states they do not know rxn details Low 01/24/2025 [facility] is unaware of what reaction. Wound Dressing Adhesive Rash Low 03/03/2017 Sulfa Drugs Anaphylaxis High 05/21/2013 Tramadol Swelling High 01/23/2014 lips swell Bupropion Rash Low 05/11/2013 Medications acetaminophen (Tylenol) 500 MG tablet Take 1 tablet by mouth every 6 hours as needed. 01/17/20 20 Active dextromethorph an-guaiFENesin (Robitussin-DM ) 10-100 MG/5ML liquid Take 10 mL by mouth every 4 (four) hours if needed. 01/17/20 20 Active loperamide (Imodium) 2 MG capsule Take 1 capsule by mouth every 4 hours as needed. 09/16/19 21 Active ondansetron (Zofran) 4 MG tablet Take 1 tablet by mouth every 6 hours as needed. 01/17/20 20 Active anastrozole (Arimidex) 1 MG chemo tablet Take 1 tablet (1 mg total) by mouth daily. 01/11/20 21 Active atorvastatin (Lipitor) 40 MG tablet Take 1 tablet by mouth daily. 08/29/19 18 Active baclofen (Lioresal) 10 MG tablet Take 1 tablet by mouth 3 times a day. 01/17/20 20 Active carvedilol (Coreg) 12.5 MG tablet Take 1 tablet by mouth 2 times a day with meals. 01/17/20 Active clopidogrel (Plavix) 75 MG tablet Take 1 tablet by mouth daily. 01/17/20 Active fluticasone (Flonase) 50 MCG/ACT nasal spray Administer 1 spray into each nostril 2 times a day. 01/17/20 Active pantoprazole (ProtoNix) 20 MG EC tablet Take 1 tablet by mouth daily before breakfast. 01/09/20 Active traZODone (Desyrel) 150 MG tablet Take 2 tablets by mouth nightly. 01/17/20 Active ferrous sulfate 325 (65 Fe) MG tablet Take 1 tablet by mouth daily with breakfast. Active Breo Ellipta 100-25 MCG/ACT aerosol powder Inhale 1 puff daily. 09/13/19 Active ascorbic acid (Vitamin C) 500 MG tablet Take 1 tablet by mouth twice a day. Active ipratropium-al buterol (Duo-Neb) 0.5-2.5 mg/3 mL nebulizer solution Take 3 mL by nebulization every 6 hours as needed. Active magnesium oxide (Mag-Ox) 400 mg tablet Take 1 tablet by mouth 2 times a day. Active cyanocobalamin (Vitamin B-12) 1000 MCG tablet Take 1 tablet by mouth daily. Active cholecalcifero l (Vitamin D3) 25 MCG (1000 UT) tablet Take 1 tablet by mouth 2 times a day. Active rivaroxaban (Xarelto) 15 MG tablet Take 1 tablet by mouth every evening. Take with food. Active ARIPiprazole (Abilify) 5 MG tablet Take 1 tablet (5 mg) by mouth 1 (one) time each day. Active azelastine (Astelin) 0.1 % nasal spray Administer 2 sprays into each nostril 2 times a day. Use in each nostril as directed Active calcitriol (Rocaltrol) 0.25 MCG capsule Take 1 capsule by mouth daily. Active DULoxetine (Cymbalta) [address] capsule Take 1 capsule by mouth daily. Do not crush or chew. Take with 60mg capsule for a 90mg dose Active DULoxetine (Cymbalta) [address] capsule Take 1 capsule by mouth daily. Do not crush or chew. Take with 30mg capsule for a 90mg dose Active multivitamin (Theragran-M) tablet Take 1 tablet by mouth daily. Active diphenhydrAMIN E (Benadryl) 25 MG tablet Take 1 tablet by mouth 2 times a day as needed for itching. Active insulin aspart, w/niacinamide, (Fiasp) 100 UNIT/ML solution vial Inject as directed 2 (two) times a day. Per sliding scale @ 1130 and 1630 Active insulin glargine (Basaglar KwikPen) 100 UNIT/ML injection pen Inject 70 Units under the skin 2 times a day. @ 0630 and 2000 Active fentaNYL (Duragesic) 12 MCG/HR Place 1 patch on the skin every 3rd (third) day. 3 patch 08/22/19 25 Active pregabalin (Lyrica) 50 MG capsule Take 1 capsule (50 mg) by mouth 2 (two) times a day. 60 capsule 08/22/19 25 Active oxyCODONE-acet aminophen (Percocet) 5-325 MG tablet Take 1 tablet by mouth 2 (two) times a day if needed for severe pain. 6 tablet 08/22/19 25 Active traZODone (Desyrel) 300 MG tablet 12/13/19 24 Active estradiol (Estrace) 0.1 MG/GM vaginal cream Insert 1 gram into the vagina 3x/week 30 g 3 09/26/19 25 Active trospium (Sanctura) 20 MG tablet Take 1 tablet (20 mg) by mouth 2 (two) times a day. 60 tablet 09/26/19 25 026 Active D-Mannose 500 MG capsule Take 2,000 mg by mouth 1 (one) time each day. 120 capsule 09/26/19 25 026 Active Vibegron 75 MG tablet Take 75 mg by mouth daily. Take one pill by mouth daily. 30 tablet 12/21/19 25 Active Additional Information Patient not taking.Reported on 01/31/2025 Artificial Tears ophthalmic solution Administer 2 drops into both eyes 3 times a day as needed. 11/24/19 25 Active guaiFENesin (GUAIASORB PO) Take 10 mL by mouth every 4 hours as needed. Active mirabegron ER (Myrbetriq) 25 MG tablet Take 2 tablets by mouth every morning. 60 tablet 02/01/20 25 026 Active mirabegron ER (Myrbetriq) 25 MG tablet Take 1 tablet by mouth every morning. 025 Discontinued fluconazole (Diflucan) 100 MG tabletIndicati ons:Urinary retention Take 1 tablet by mouth daily for 14 days. 14 tablet 02/01/20 25 025 Active Problems Problem Noted Date Diagnosed Date History of stroke 12/31/2024 Hx of AKA (above knee amputation), left 01/01/20 PVD (peripheral vascular disease) 12/31/2024 Asymptomatic bilateral carotid artery stenosis 0 12/31/2024 Other specified cardiac arrhythmias 11/05/2024 Cerebral infarction due to u nspecified occlusion or stenosis of left carotid arteries 11/05/2024 Hypertensive chronic kidney disease with stage 1 through stage 4 chronic kidney disease, or unspecified chronic kidney disease 10/12/2024 Urinary incontinence without sensory awareness 0 10/12/2024 Anemia in chronic kidney disease 10/12/2024 Chronic kidney disease, stage 3a 10/12/2024 Urinary retention 09/26/2024 Recurrent UTI 09/26/2024 Post-menopausal atrophic vaginitis 09/26/2024 Cyst of kidney, acquired 09/21/2024 Insomnia, unspecified 09/21/2024 Pain, unspecified 08/22/2024 Unspecified hydronephrosis 08/21/2024 Tubulo-interstitial nephriti s, not specified as acute or chronic 08/21/2024 Other disorders of phosphorus metabolism 024 Hypertensive heart and chron ic kidney disease with heart failure and stage 1 through stage 4 chronic kidney disease, or unspecified chronic kidney disease 08/21/2024 Glycosuria 08/20/2024 Type 2 diabetes mellitus wit h diabetic chronic kidney disease 08/19/2024 Other nonspecific abnormal finding of lung field 08/19/2024 Stage 3 chronic kidney disease 08/17/2024 Hydronephrosis with renal an d ureteral calculous obstruction 08/17/2024 Kidney infection 08/16/2024 [place] coma scale total sco re 13-15, unspecified coma timing 08/15/2024 Pyelonephritis 08/15/2024 Unspecified abdominal pain 08/15/2024 Old myocardial infarction 08/15/2024 Calculus of kidney 08/15/2024 Fecal impaction 08/14/2024 Constipation, unspecified 08/14/2024 Headache, unspecified 08/14/2024 Nontoxic single thyroid nodule 07/10/2024 Edema, unspecified 07/02/2024 Tinea unguium 06/07/2024 Pain in right toe(s) 06/07/2024 Pain in left toe(s) 06/07/2024 Disorder of kidney and ureter, unspecified 04/25 Secondary hyperparathyroidism of renal origin Dysuria 04/09/2024 Adult failure to thrive 04/02/2024 Vitamin D deficiency, unspecified 12/21/2023 Acquired absence of leg above knee 12/13/2023 Peripheral vascular disease, unspecified 024 Weakness 12/13/2023 Unspecified right bundle-branch block 12/09/2023 Other acute postprocedural pain 12/09/2023 Mixed simple and mucopurulent chronic bronchitis 12/05/2023 Other specified disorders of the skin and subcutaneous tissue 11/29/2023 Morbid (severe) obesity due to excess calories 0 10/31/2023 Atrial premature depolarization 10/08/2023 Hyperkalemia 10/05/2023 Hemiplegia and hemiparesis f ollowing cerebral infarction affecting left non-dominant side 10/04/2023 Dyspnea, unspecified 10/04/2023 Chronic diastolic (congestive) heart failure Presence of left artificial knee joint Acute kidney injury superimposed on CKD 01/05/20 23 05/25/2023 Arthritis 01/04/2023 05/25/2023 Cellulitis of left knee 01/04/2023 05/25/20 Chronic respiratory failure 01/04/2023/11/2022 COPD (chronic obstructive pulmonary disease) 05/25/2023 Dehydration with hyponatremia 01/04/2023 Diabetes mellitus 01/04/2023 05/25/2023 Hyperlipidemia 01/04/2023 05/25/2023 Restrictive lung disease 01/04/2023 023 Stroke 01/04/2023 05/25/2023 Second hand smoke exposure 10/04/2022 Iron deficiency anemia 03/01/2022 Hypotension 06/03/2017 GERD without esophagitis 03/28/2017 CAD (coronary artery disease), tazlina coronary a rtery 03/28/2017 Controlled diabetes mellitus type II without com plication 03/28/2017 Proteinuria 03/23/2017 Deep venous thrombosis of lower extremity 2015 Overview (09/26/2024): From Automated Load;Provider: Pooja Ricketts;Status: Active Venous embolism 02/18/2016 Overview (09/26/2024): From Automated Load;Provider: Pooja Ricketts;Status: Active Type 2 diabetes mellitus without complication Overview (12/25/2024): From Automated Load;Provider: Pooja Ricketts;Status: Active Prosthetic joint infection 02/12/2016 Overview (09/26/2024): From Automated Load;Provider: Alphonso Barahona;Status: Active Methicillin resistant Staphylococcus aureus infe ction 02/12/2016 Overview (09/26/2024): From Automated Load;Provider: Alphonso Barahona;Status: Active Essential (primary) hypertension 05/21/2013 Resolved Problems Problem Noted Date Diagnosed Date Resolved Date CKD (chronic kidney disease) stage 3, GFR 30-59 ml/min 03/07/2017 08/29/2023 Encounters Date Type Department Care Team Description 01/31/2025 9:48 AM EDT Anesthesia Event [facility] [address] [place] [address] Nj Sears MD 01/31/2025 8:55 AM EDT - 01/31/2025 10:10 AM EDT Surgery [facility] [address] [place] [address] Ceci Mitchell MD URETEROSCOPY,CYSTOSCO PY, RETROGRADE PYELOGRAM, BILATERAL STENT PLACEMENT [72005 (CPT )] 01/31/2025 8:03 AM EDT - 01/31/2025 1:39 PM EDT Hospital Encounter [facility] [address] [place] [address] Ceci Mitchell MD Urinary retention (Primary Dx); Gross hematuria Discharge Disposition: Home or Self Care 01/31/2025 Travel 01/24/2025 2:00 PM EDT Pre-Admission Testing [facility]op [facility] [address], [address] [place] [address] 01/24/2025 Travel 01/23/2025 Telephone [facility] Urology [address], [address] [place] [address] Ceci Mitchell MD 01/17/2025 Telephone [facility] Urology [address], [address] [place] [address] Ceci Mitchell MD 01/16/2025 Telephone [facility] Urology [address], [address] [place] [address] Ceci Mitchell MD 01/03/2025 2:15 PM EDT - 01/03/2025 11:59 PM EDT Hospital Encounter [facility] [address], [address]nd [place] [address] Gross hematuria Discharge Disposition: Home or Self Care 01/03/2025 Travel 12/31/2024 4:00 PM EDT Office Visit [facility] [address] [place] [address] Bert Canela MD Asymptomatic bilateral carotid artery stenosis (Primary Dx); PVD (peripheral vascular disease) ([facility]); Hx of AKA (above knee amputation), left ([facility]); History of stroke; Type 2 diabetes mellitus without complication, unspecified whether wet finisher insulin use 12/31/2024 2:01 PM EDT - 12/31/2024 11:59 PM EDT Hospital Encounter [facility] Vascular Lab [address] [place] [address] Coronary artery disease involving tazlina heart without angina pectoris, unspecified vessel or lesion type; S/P AKA (above knee amputation) bilateral ([facility]); Acute left arterial ischemic stroke, ICA (internal carotid artery) ([facility]) Discharge Disposition: Home or Self Care 12/31/2024 2:01 PM EDT - 12/31/2024 11:59 PM EDT Hospital Encounter [facility] Vascular Lab [address] [place] [address] S/P AKA (above knee amputation) bilateral ([facility]); Encounter for surgical aftercare following surgery on the circulatory system Discharge Disposition: Home or Self Care 12/31/2024 Travel 12/20/2024 9:20 AM EDT Office Visit [facility] Urology [address] [place] [address] Cayla Erazo, VARNISH MAKER HELPER, DNP Recurrent UTI (Primary Dx); Hydronephrosis, unspecified hydronephrosis type; Urinary retention; Post-menopausal atrophic vaginitis; Gross hematuria 12/20/2024 Orders Only External Location [address] [place] [address] Provider, External 12/20/2024 Travel 12/04/2024 12:05 PM EDT - 12/04/2024 11:59 PM EDT Hospital Encounter Medical Office Building Cardiac Diagnostic Testing Medical [facility] Echo Lab [address], [address] [place] [address] Coronary artery disease involving tazlina heart without angina pectoris, unspecified vessel or lesion type Discharge Disposition: Home or Self Care 12/04/2024 Travel 11/27/2024 2:25 PM EDT - 11/27/2024 11:59 PM EDT Hospital Encounter [facility] [address] [place] [address] Hydronephrosis, unspecified hydronephrosis type; Urinary retention Discharge Disposition: Home or Self Care 11/27/2024 Travel from Last 3 Months Immunizations Immunization Administration Dates Next Due Influenza, injectable, quadrivalent, preservativ e free 05/11/2016 [employer] COVID-19 Vaccine (Purple Cap) 12 + 09/30/2020,09/09/2020 Family History 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 Relation Name Comments Cancer Father Menorrhagia Father Cancer Mother Stroke Mother Breast cancer Mother's Sister 1 Cancer Mother's Sister 2 Anesthesia problems Neg Hx Malig Hyperthermia Neg Hx Relation Name Status Comments Father Mother Mother's Sister 1 Mother's Sister 2 Social History Tobacco Use Types Packs/Day Years Used Date Smoking Tobacco: Former Cigarettes Q uit: 07/22/2022 Passive Smoke Exposure: Past Smokeless Tobacco: Never Tobacco Cessation:Counseling Given: Not Answered Alcohol Use Standard Drinks/Week Comments Not Currently [...] time in the past 12 [facility], were you homeless or living in [...] drink first t rodríguez in the morning (EYE-YOUTH PROBATION OFFICER) to steady your nerves or to get rid of a hangover? 0 08/15/2024 CAGE Questionnaire Score 0 024 Utilities Answer Date Recorded In the past 12 months has th [employer], gas, oil, or water [employer] threatened to shut off services in your [...] (189 lb) 01/24/2025 1:20 PM EDT Height 162.6 cm (5' 4 ) 12/31/2024 2:49 PM EDT Body Mass Index 32.44 12/31/2024 2:49 PM EDT Plan of Treatment Upcoming Encounters Date Type Department Care Team (Late st Contact Info) Description 03/07/2025 10:00 AM EDT [facility] [address], [address]nd [place] [address] Doug Chapman MD [address] [place] [address] 03/27/2025 10:30 AM EDT Appointment [facility] Ultrasound [address], [address]nd [place] [address] 03/27/2025 11:50 AM EDT Clinical Support [facility] Lab [address] [place] [address] 03/27/2025 1:00 PM EDT Office Visit Medical Office Building Urology [address], [address] [place] [address] Cayla Erazo, VARNISH MAKER HELPER, DNP [address] [facility] [address] [place] [address] 05/16/2025 8:00 AM EDT Office Visit [facility] [address], [address] [place] [address] Karly Gracia MD [address] [place] [address] 06/07/2025 1:00 PM EDT Office Visit [facility] [address] [place] [address] Tom Iraheta MD [address] [place] [address] Health Maintenance Due Date Last Done Comments [facility]-Bone Density Scan 1959 [facility]-Medicare Annual Wellness (AWV) 1959 [facility]-/Child/Adol SDOH Screenings 1959 Diabetes: Dental Exam 1969 [facility]-DTaP,Tdap,and Td Vaccines (1 - Tdap) 1978 [facility]-Pneumococcal Vaccine: 50+ Years (1 of 2 - PCV) 1978 CT Colonography 2004 Colonoscopy 2004 FIT-DNA 2004 FIT 2004 FOBT 2004 Sigmoidoscopy 2004 [facility]-Colorectal Cancer Screening 2004 [facility]-Zoster Vaccines (1 of 2) 2009 [facility]-Diabetes: Hemoglobin A1C 09/02/2014 03/05/2014 [facility]-Pap Smear 04/10/2016 04/10/2013, 04/05/2013 [facility]-Cervical Cancer Screening 04/10/2018 [facility]-HPV/Cotest 04/10/2018 04/10/2013, 04/05/2013 [facility]-RSV Vaccine: 60+ Years or (1 - Risk 60-74 years 1-dose series) 2019 [id number] Vaccine (3 - Pfizer risk series) 10/28/2020 09/30/2020, 09/09/2020 [facility]- SDOH Screenings 02/18/2025 [facility]-Adult SDOH Screenings 02/18/2025 08/20/2024 [facility]-Influenza Vaccine (Season Ended) 2025 05/11/2016 [facility]-Depression Screening 12/20/2025 025, 09/26/2024, 09/13/2022, Additional history exists [facility]-Hepatitis C Screening Completed 08/15/2024 [facility]-Obesity Intervention Completed 025, 12/20/2024, 11/08/2024, Additional history exists HPV Vaccines Aged Out No longer eligi ble based on patient's age to complete this topic [facility]-HIB Vaccines Aged Out No longer e ligible based on patient's age to complete this topic [facility]-Hepatitis A Vaccines Aged Out No longer eligible based on patient's age to complete this topic [facility]-IPV Vaccines Aged Out No longer e ligible based on patient's age to complete this topic [facility]-Rotavirus Vaccines Aged Out No lo nger eligible based on patient's age to complete this topic Goals Goal Patient Goal Type Associated Problems Recent Progress Patient-Stated? Author Autogenerat ed Goal Care Plan Autogenerated Problem No [employer] Implanted Type Area Tuck Pointer Device Identifier Shelf Expiration Date Model / Serial / Lot Stent Ureteral [employer]ria [employer] Monofilament 7f/24cm - [id number] Implanted:Qty: 1 on 01/31/2025 by Ceci Mitchell MD at [facility] Right: Kidney Cardiola-[id number] 49 06/14/2027 [id number] / / [id number] Stent Ureteral [employer] Monofilament 7f/24cm - [id number] Implanted:Qty: 1 on 01/31/2025 by Ceci Mitchell MD at [facility] Left: Kidney Cardiola-[id number] 49 07/02/2027 [id number] / / [id number] Procedures Procedure Name Priority Date/Time Associated Diagnosis Comments POCT GLUCOSE METER UNSOLICITED RESULTS Routine 01/31/2025 11:39 AM EDT FL LESS THAN 1 HOUR (NON-REPORTABLE) Routine 01/31/2025 11:14 AM EDT FUNGAL CULTURE, ROUTINE Routine 01/31/2025 10:23 AM EDT Gross hematuria URINE CULTURE Routine 01/31/2025 10:22 AM EDT Gross hematuria PB ANESTHESIA PLACEHOLDER Routine 01/31/2025 9:58 AM EDT LA AN ELECTIVE ENDOTRACHEAL AIRWAY Routine 01/31/2025 9:58 AM EDT LA CYSTO/URETERO/PYELOSC, BX &/OR FULG LESN 01/31/2025 9:32 AM EDT Gross hematuria POCT GLUCOSE METER UNSOLICITED RESULTS Routine 01/31/2025 8:[address] UROGRAM Routine 01/03/2025 3:01 PM EDT Gross hematuria VAS ANKLE BRACHIAL INDEX - SEGMENTAL Routine 12/31/2024 2:30 PM EDT S/P AKA (above knee amputation) bilateral (CMS/HCC) Encounter for surgical aftercare following surgery on the circulatory system VAS US CAROTID DUPLEX BILATERAL Routine 12/31/2024 2:27 PM EDT Coronary artery disease involving tazlina heart without angina pectoris, unspecified vessel or lesion type S/P AKA (above knee amputation) bilateral (CMS/HCC) Acute left arterial ischemic stroke, ICA (internal carotid artery) (CMS/HCC) URINE CULTURE Routine 12/20/2024 2:33 PM EDT Hydronephrosis, unspecified hydronephrosis type Urinary retention BASIC METABOLIC PANEL, PLASMA Routine 12/20/2024 11:54 AM EDT Hydronephrosis, unspecified hydronephrosis type UROLOGY UDS WITH BASE PERFORMABLE CHARGES Routine 12/20/2024 10:28 AM EDT Hydronephrosis, unspecified hydronephrosis type Urinary retention LA COMPLEX CYSTOMETROGRAM W/VOID PRESS&URETHRAL PROFILE Routine 12/20/2024 10:28 AM EDT Hydronephrosis, unspecified hydronephrosis type Urinary retention INJECTION FOR BLADDER XRAY WITHOUT VOIDING Routine 12/20/2024 10:28 AM EDT Hydronephrosis, unspecified hydronephrosis type Urinary retention POC ULTRASOUND 12/20/2024 ECHO, ADULT TRANSTHORACIC COMPLETE Routine 12/04/2024 1:26 PM EDT Coronary artery disease involving tazlina heart without angina pectoris, unspecified vessel or lesion type US RENAL COMPLETE Routine 11/27/2024 2:5 7 PM EDT Hydronephrosis, unspecified hydronephrosis type Urinary retention HEPATITIS C ANTIBODY - ED W/REFLEX TO HCV QUANT PCR STAT 08/15/2024 5:35 AM EST HEMOGLOBIN A1C Routine 03/05/2014 7:31 PM EDT CYTO DATA CONVERSION Routine 04/10/2013 12:00 AM EDT from Last 3 Months or Most Recently Relevant to Health Maintenance Results * (ABNORMAL) POCT glucose meter (01/31/2025 11:39 AM EDT) Only the most recent of2 resultswithin the time period is included. POCT Glucose 135(H) 74 - 99 mg/dL [...] 01/31/2025 11:41 AM EDT [facility] Digital Engineer ID Abbey Medina 01/31/2025 11:41 AM EDT HEALTHCARE LAB Device ID [id number] 01/31/2025 11:41 AM EDT HEALTHCARE LAB Specimen Type POC Capillary 01/31/2025 11:41 AM EDT HEALTHCARE LAB Blood Capillary blood specimen / Unknown 01/31/2025 11:39 AM EDT 01/31/2025 11:41 AM EDT Ceci Mitchell MD LAB POINT OF CARE TE ST DOCKED DEVICE UNSOLICITED RESULTS Final Result Performing Organization Address City/[facility]/ZIP Co de Phone Number [facility] [address] [place], [place] [id number] * [place] Less than 1 Hour Intraoperative [...] O RDERABLES Final Result Performing Organization Address [facility] [place] [address] * Urine Culture (01/31/2025 10:22 AM EDT) Only the most recent of2 resultswithin the time period is included. Culture No growth at day 1 02/01/2025 8:02 AM EDT [facility] Urine Urinary bladder structure / Unknown 01/31/2025 10:22 AM EDT 01/31/2025 11:38 AM EDT Comment:Pre-op diagnosis: Gross hematuria Ceci Mitchell MD LAB MICROBIOLOGY - GENERAL O RDERABLES Final Result Performing Organization Address [facility] [place] [address] * LA AN ELECTIVE ENDOTRACHEAL AIRWAY, PB ANESTHESIA PLACEHOLDER (01/31/2025 9:58 AM EDT) Narrative Migue Seay CRNA - 01/31/2025 9:58 AM EDT Migue Seay CRNA 01/31/2025 10:45 AM Airway Date/Time: 01/31/2025 9:58 AM Reason: elective Airway not difficult General Information and Staff Patient location during procedure: OR IT TELECOM TECHNICIAN: Migue Seay CRNA Performed: [place] Patient Condition [...] Nj Sears MD ANESTHESIA ORDERABLES Final Result * CT Urogram (01/03/2025 3:01 PM EDT) [...] following split bolus administration of IV contrast, [id number], 150 mL. Reformatted images in the coronal [...] Jin Morin MD on 01/03/2025 3:33 PM us Cayla Erazo VARNISH MAKER HELPER, DNP IMG CT PROCEDURES Final Result * VAS Ankle Brachial Index - Segmental [...] are demonstrated at the levels of the DIRECTOR OF SURGERY, PATIENT CARRIER and DPA. Segmental pressures are within normal limits with a PATIENT CARRIER JASEN of 0.98 (138 mmHg) and a DPA JASEN of 1.28 (181 mmHg). Digit pressures are 115 mmHg. Left: AKA is noted. Multiphasic waveforms are demonstrated at the level of the DIRECTOR OF SURGERY. 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 COMPARISON: None. FINDINGS: Right: Multiphasic waveforms are demonstrated at the levels of the DIRECTOR OF SURGERY,PATIENT CARRIER and DPA. Segmental pressures are within normal limits with a PATIENT CARRIER ABIof 0.98 (138 mmHg) and a DPA JASEN of 1.28 (181 mmHg). Digit pressures [id number] mmHg. Left: AKA is noted. Multiphasic waveforms are demonstrated at the level ofthe DIRECTOR OF SURGERY. IMPRESSION: Right: Normal study; No evidence of [...] Gracia MD CV VASCULAR PROCEDURES Final Result * VAS US Carotid Duplex Bilateral Stent [...] Jennifer Parkinson MD on 01/01/2025 7:08 AM us Karly Gracia MD CV VASCULAR PROCEDURES Final Result * (ABNORMAL) Basic Metabolic Panel, Plasma (12/20/2024 11:54 AM EDT) Glucose, Plasma 226(H) 74 - 99 mg/dL 12/20/2024 1:19 PM EDT [facility] BUN, Plasma 34(H) 8 - 23 mg/dL 12/20/2024 1:19 PM EDT [facility] Creatinine, Plasma 1.82(H) 0.60 - 1.10 mg/dL 12/20/2024 1:19 PM EDT [facility] BUN/Creatinine Ratio 19 12/20/2024 1:19 PM EDT [facility] Sodium, Plasma 134(L) 136 - 145 mmol/L 12/20/2024 1:19 PM EDT [facility] Potassium, Plasma 4.8 3.6 - 4.9 mmol/L 12/20/2024 1:19 PM EDT [facility] Chloride, Plasma 94(L) 97 - 107 mmol/L 12/20/2024 1:19 PM EDT [facility] CO2, Plasma 28 22 - 29 mmol/L 12/20/2024 1:19 PM EDT [facility] Anion Gap 12 6 - 16 mmol/L 12/20/2024 1:19 PM EDT [facility] Total Calcium, Plasma 10.0 8.9 - 10.2 mg/dL 12/20/2024 1:19 PM EDT [facility] eGFRcr 30.5 mL/min/1.7 3m*2 12/20/2024 1:19 PM EDT [facility] Comment:Reported eGFRcr in m L/min/1.73m2 is based the CKD-EPI 2020 equation that does not use a race coefficient. Blood Venous blood specimen / Unknown Venipuncture / Unknown 12/20/2024 11:54 AM EDT 12/20/2024 11:55 AM EDT us Cayla Erazo APRN, DNP LAB BLOOD ORDERABLES [facility] al Result [facility] [address] [place] [address] * INJECTION FOR BLADDER XRAY WITHOUT VOIDING, LA COMPLEX CYSTOMETROGRAM W/VOID PRESS&URETHRAL PROFILE, UROLOGY UDS WITH BASE PERFORMABLE CHARGES (12/20/2024 10:28 AM EDT) Narrative Cayla Erazo APRN, DNP - 12/20/2024 10:28 AM EDT Cayla Erazo APRN, DNP 01/04/2025 2:40 PM UDS Date/Time: 12/20/2024 10:28 AM Performed by: Cayla Erazo APRN, DNP Authorized by: Cayla Erazo APRN, DNP Dix Protocol: Time out called at: 12/20/2024 10:28 [...] no complications Post-procedure interventions: post-procedure instructions given us Cayla Erazo APRN, DNP UROLOGY ORDERABLES Edite d Result - Final * POC Imaging (12/20/2024) Anatomical Region Laterality Modality Pelvis Other 12/20/2024 us External Provider IMG POINT OF CARE ULTRASOUND F inal Result * ECHO, ADULT TRANSTHORACIC COMPLETE (12/04/2024 1:26 PM EDT) Height 162.6 CARLOS ISCV Weight 85.7 CARLOS ISCV BSA 1.91 m2 CARLOS ISCV Ao Root Diam 33 mm CARLOS ISCV PA acc time 90 msec CARLOS ISCV mean PAP 39 mmHg CARLOS ISCV PA LA(ACCEL) 37.4 mmHg CARLOS ISCV PA acc slope 861.8 cm/s2 CARLOS ISCV LAV(MOD-4ch) 31 mL CARLOS ISCV LAV(MOD-bp) Indexed 15 mL/m2 CARLOS ISCV LAV(MOD-2ch) 26 mL CARLOS ISCV LVIDd 51 mm CARLOS ISCV IVSd 12 mm CARLOS ISCV LVPWd 9 mm CARLOS ISCV LV MASS(C)D 195 g CARLOS ISCV LV RWT 0.41 mm CARLOS ISCV LVIDs 37 mm CARLOS ISCV RV s' Doug 14.0 cm/s CARLOS ISCV TAPSE 28 mm CARLOS ISCV Anatomical Region Laterality Modality Echocardiography Narrative 12/04/2024 3:00 PM EDT Technically difficult due to patient's clinical status. The left ventricle is normal size. There is concentric remodeling. No left ventricular mass or thrombus is seen. The LVEF is visually estimated at 35 - 40%. Unable to assess diastolic function due to E-A fusion. Due to poor image quality, regional wall motion was not interpretable. The right ventricle is grossly normal in size. The right ventricular systolic function is normal. No hemodynamically significant valvular disease. Left Ventricle The left ventricle is normal size. There is concentric remodeling. No left ventricular mass or thrombus is seen. The LVEF is visually estimated at 35 - 40%. Unable to assess diastolic function due to E-A fusion. Due to poor image quality, regional wall motion was not interpretable. Right Ventricle The right ventricle is grossly normal in size. The right ventricular systolic function is normal. The spectral Doppler envelope of TR is not adequate for calculating the right ventricular systolic pressure (RVSP). Based upon other 2D and Doppler features, the RVSP is probably normal or at most mildly elevated. Left Atrium The left atrial size is normal with an indexed volume of 16-34 mL/m2. The interatrial septum is intact with no evidence for an atrial septal defect. Right Atrium The right atrial size is normal. IVC/SVC Based on the IVC size and respiratory variation, the estimated right atrial pressure is 3mmHg. Mitral Valve There is mild mitral annular calcification. The mitral valve chordae are thickened and/or calcified. There is trace mitral regurgitation. There is no mitral stenosis. Tricuspid Valve The tricuspid valve is normal in appearance. There is trace tricuspid regurgitation. There is no tricuspid stenosis. Aortic Valve The aortic valve appears to be trileaflet. The cusp(s) are thickened. There is no valvular regurgitation. There is no hemodynamically significant valvular aortic stenosis. Pulmonic Valve The pulmonic valve is grossly normal. There is no pulmonic regurgitation. There is no pulmonic stenosis. Pericardium No pericardial effusion. Great Vessels The aortic root is normal in size. The main pulmonary artery is not well visualized. Study Details A complete transthoracic echocardiogram using two-dimensional (2D), m-mode, color and spectral flow Doppler imaging was performed. The study was technically difficult. The study was technically difficult due to patient's clinical status. Height: 162.6 cm. Weight: 85.7 kg. BSA: 1.91 m2. Study Recommendation There is no recent study available for direct eysh-as-owge comparison. us Karly Gracia MD CV ECHO PROCEDURES Final Resu lt * US Renal Complete (11/27/2024 2:57 PM EDT) Anatomical Region Laterality Modality Kidney Ultrasound Impressions 11/27/2024 3:49 PM EDT Grossly similar moderate hydronephrosis bilaterally when compared to ultrasound 3 months prior. CRITICAL RESULT: No. COMMUNICATION: Per this written report. By electronically signing this report, I, the attending physician, attest that I have personally reviewed the images/data for the above examination(s) and agree with the final edited report. Drafted by Mariah Giron MD on 11/27/2024 3:07 PM Final report signed by Valery Hyatt MD on 11/27/2024 3:49 PM Narrative 11/27/2024 3:49 PM EDT CLINICAL INDICATION: hydronephrosis TECHNIQUE: Multiplanar static and cine stoner scale ultrasound images of the kidneys and urinary bladder were obtained, accompanied by selective color Doppler ultrasound images. COMPARISON: Renal ultrasound 09/21/2024. FINDINGS: Right Kidney: Diffuse cortical thinning with moderate hydronephrosis similar to prior. Length 9.5 cm. No obvious calculi or discernible mass. Left Kidney: Diffuse cortical thinning with with grossly similar moderate hydronephrosis, accounting for differences in sonographic projection between the studies. Length 10.6 cm. No obvious calculi or discernible mass. Stable interpolar 1.2 cm simple cyst. Urinary bladder: Relative underdistention limits evaluation. Suggestion of probable small capacity bladder with similar circumferentially thickened appearing canchola, similar to prior ultrasound and CT. Although ultrasound is not very sensitive for detection, there is no overt internal floating debris or obvious hyperemia of the bladder wall to definitively suggest active cystitis. Procedure Note Valery Hyatt MD - 11/27/2024 CLINICAL INDICATION: hydronephrosis TECHNIQUE: Multiplanar static and cine stoner scale ultrasound images of the kidneysand urinary bladder were obtained, accompanied by selective color Dopplerultrasound images. COMPARISON: Renal ultrasound 09/21/2024. FINDINGS: Right Kidney: Diffuse cortical thinning with moderate hydronephrosissimilar to prior. Length 9.5 cm. No obvious calculi or discernible mass. Left Kidney: Diffuse cortical thinning with with grossly similar moderatehydronephrosis, accounting for differences in sonographic projectionbetween the studies. Length 10.6 cm. No obvious calculi or discerniblemass. Stable interpolar 1.2 cm simple cyst. Urinary bladder: Relative underdistention limits evaluation. Suggestion ofprobable small capacity bladder with similar circumferentially thickenedappearing canchola, similar to prior ultrasound and CT. Although ultrasoundis not very sensitive for detection, there is no overt internal floatingdebris or obvious hyperemia of the bladder wall to definitively suggestactive cystitis. IMPRESSION: Grossly similar moderate hydronephrosis bilaterally when compared toultrasound 3 months prior. CRITICAL RESULT: No. COMMUNICATION: Per this written report. By electronically signing this report, I, the attending physician, attestthat I have personally reviewed the images/data for the aboveexamination(s) and agree with the final edited report. Drafted by Mariah Giron MD on 11/27/2024 3:07 PM Final report signed by Valery Hyatt MD on 11/27/2024 3:49 PM us Cayla Erazo VARNISH MAKER HELPER, DNP IMG US PROCEDURES Final Result * Hepatitis C Antibody - ED (08/15/2024 5:35 AM EST) Hepatitis C Antibody Negative Negative 08/15/2024 7:08 AM EST [facility] Blood Venous blood specimen / Unknown Venipuncture / Unknown 08/15/2024 5:35 AM EST 08/15/2024 6:06 AM EST us Marcy Zhong MD LAB BLOOD ORDERABLES Final Resu lt [facility] [address] [place] [address] * (ABNORMAL) Hemoglobin A1c (03/05/2014 7:31 PM EDT) Hemoglobin A1c 8.8(H) 4.7 - 6.0 % [facility] Comment: (NOTE) Glycohemoglobin, 0 years and up: 4.7 - 6.0% . HbA1c assay performed by an ion-exchange chromatography method that is certified traceable to the DCCT. 03/05/2014 7:31 PM EDT 03/05/2014 8:27 PM EDT us Historical Provider LAB BLOOD ORDERABLES Juliette l Result [facility] * Cytology (04/10/2013 12:00 AM EDT) Specimen from axilla structure obtained by fine needle aspiration biopsy (specimen) 04/10/2013 04/10/2013 2:2 3 PM EDT Narrative [facility] - 04/10/2013 3:59 PM EDT [facility] MR #: [id number] [facility] YADIRA [place], [place] [address] 1960 (Age: 52) FW Collect Date: 04/10/2013 00:00 Receipt Date: 04/10/2013 14:23 Page 1 DEPARTMENT OF PATHOLOGY AND LABORATORY MEDICINE CYTOPATHOLOGY REPORT Email: [email or web address] ATTENDING MD/Practitioner: Kimmie Aguilera MD Service: [facility] Location: [facility] OTHER MD(S): Monserrat Sands MD Reported: 04/10/2013 15:59 Collected: 04/10/2013 00:00 DIAGNOSIS RIGHT AXILLARY LYMPH NODE, ULTRASOUND GUIDED FNA: - SPECTRUM OF LYMPHOCYTES AND HISTIOCYTES MOST CONSISTENT WITH REACTIVE LYMPHOID HYPERPLASIA; NO METASTATIC CARCINOMA IS IDENTIFIED. Electronically Signed Out Donald Reaves MD PROCEDURES/ADDENDA GROSS DESCRIPTION: Hold needle rinse fluid. 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 Jonatan Sands Immediate evaluation performed by: Dr. Chantell Reaves Evaluation episode # 1-3: abundant lymphoid tissue, no tumor seen This service has been rendered in part by a resident. A pathologist has personally reviewed the slides/tissue and has rendered and is responsible for the diagnosis that appears on the report. SPECIMEN DESCRIPTION: A: FNA RIGHT AXILLA, ULTRASOUND GUIDED DIFF-QUIK x 3, PAP STAIN x 3 ICD: 785.6 ENLARGEMENT OF LYMPH NODES (REACTIVE LYMPHOID HYPERPLASIA - LYMPH NODE) 233.0 CARCINOMA IN SITU, BREAST V86.0 ESTROGEN RECEPTOR POSITIVE STATUS (ER POSITIVE) F: A; 58424 ASP INTER, [address]03[address], [address] SNOMED CODES: A; B63427 [id number] C65680 F25983 W54468 [id number] P1149 [id number] A resident has participated in this service. A pathologist has performed and is responsible for the reported pathologic evaluation. 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 Yes Care Teams Printer Operator Relationship Specialty Start Date End Date Vignesh Pickens MD [address] [place] [address] PCP - General 12/31/24 Cayla Erazo APRN, DNP [address] [place] [address] Nurse Practitioner Urology 12/20/24
--- OUTSIDE RECORDS SUMMARY | 2025-02-20 07:07 | XMS_ITS | Encounter Summary ---
Author Organization [facility] Address [address] [place] [address] Care Team Providers Care Sales Special Agent Name Role Phone Cayla Erazo APRN, DNP Unavailable [phone] Vignesh Pickens MD Primary Care Provider [phone] Encounter Details Date Type Department Care Team (Late st Contact Info) Description 01/23/2025 Telephone [facility] [address] [place] [address] Ceci Mitchell MD [address] [place] [address] Social History Tobacco Use Types [...] drink first t rodríguez in the morning (EYE-BOOK OR SCRIPT EDITOR) to steady your nerves or to get [...] * Telephone Encounter - Eugenia Hodge - 01/23/2025 10:28 AM EDT Called facility for urine culture results , unable to reach nurse documented in this encounter Plan of Treatment Upcoming Encounters Date Type Department Care Team (Late st Contact Info) Description 03/07/2025 10:00 AM EDT Office Visit [facility] Urology [address] [place] [address] Doug Chapman MD [id number] [place] [address] 03/27/2025 10:30 AM EDT Appointment [facility] Ultrasound [address] [place] [address] 03/27/2025 11:50 AM EDT Clinical Support [facility] Building Lab [address] [place] [address] 03/27/2025 1:00 PM EDT Office Visit Medical Office Building Urology [address] [facility], [address] [place] [address] Cayla Erazo, CELLOPHANE BATH MIXER, DNP [address] [facility] [address] [place] [address] 05/16/2025 8:00 AM EDT Office Visit [facility] [place] [address] [facility] [address], [address] [place] [address] Karly Gracia MD [address] [place] [address] 06/07/2025 1:00 PM EDT Office Visit [facility] [address] [place] [address] Tom Iraheta MD [address] [place] [address] documented as of this encounter [...] documented as of this encounter Care Teams Sales Special Agent Relationship Specialty Start Date End Date Vignesh Pickens MD [address] [place] [address] PCP - General 12/31/24 Cayla Erazo APRN, DNP [address] [place] [address] Nurse Practitioner Urology 12/20/24 documented as of this encounter
--- OUTSIDE RECORDS SUMMARY | 2025-02-20 07:07 | XMS_ITS | Encounter Summary ---
Author Organization [facility] Address [address] [place] [address] Care Team Providers Care Creel Clerk Name Role Phone Daniel Barba MD Primary Care Provider [phone] Judy Huff DATA PROCESSING CONSULTANT Unavailable Unavailabl e Cayla Erazo APRN, DNP Unavailable [phone] Vignesh Pickens MD Primary Care Provider [phone] Encounter Details Date Type Department Care Team (Late st Contact Info) Description 07/28/2022 Orders Only External Location [address] [place] [address] Gregg Morgan MD [address] [place] [address] Social History Tobacco Use Types Packs/Day Years Used Date Smoking Tobacco: Light Smoker Smokeless Tobacco: Never Alcohol Use Standard Drinks/Week [...] [address] [place] [address] Doug Chapman MD [address] [place] [address] 03/27/2025 10:30 AM EDT Appointment [facility] Ultrasound [address] [place] [address] 03/27/2025 11:50 AM EDT Clinical Support Medical Office Building Lab [address] [place] [address] 03/27/2025 1:00 PM EDT Office Visit Medical Office Building Urology [address] [facility] [place] [address] Cayla Erazo, MANAGER OF TAX, DNP [address] [place] [address] 05/16/2025 8:00 AM EDT Office Visit [facility] [place] [address] [facility] [place] [address] Karly Gracia MD [address] [place] [address] 06/07/2025 1:00 PM EDT Office Visit [facility] [address] [place] [address] Tom Iraheta MD [address] [place] [address] documented as of this encounter Procedures Procedure Name Priority Date/Time Associated Diagnosis Comments POC US ECHOCARDIOGRAPHY COMPLETE W DOPPLER AND COLOR 07/28/2022 1:42 PM EST documented in this encounter Results * POC US Echocardiography Complete W Doppler and Color (07/28/2022 1:42 PM EST) Anatomical Region Laterality Modality Ultrasound 07/28/2022 1:42 PM EST us Gregg Morgan MD IMG POINT OF CARE ULTRASOUND Fin al Result documented in this encounter Visit Diagnoses Not on filedocumented in this encounter Additional Health Concerns Infection Onset Date Last Indicated Resolved Time Respiratory Rule-Out 08/15/2024 08/15/2024 024 6:31 PM EST MRSA 09/26/2024 09/26/2024 documented as of this encounter Care Teams Creel Clerk Relationship Specialty Start Date End Date Daniel Barba MD [address] [place] [address] PCP - General 01/02/21 12/30/24 Vignesh Pickens MD [address] [place] [address] PCP - General 12/31/24 Judy Huff, DATA PROCESSING CONSULTANT [facility] TCM Nurse 08/24/24 08/24/24 Cayla Erazo APRN, FREDERICK [address] [facility] [address] [place] [address] Nurse Practitioner Urology 12/20/24 documented as of this encounter
--- OUTSIDE RECORDS SUMMARY | 2025-02-20 07:07 | XMS_ITS | Data Portability ---
Author Organization [facility]OS[facility] Address [address] [place] [address] Assessment No assessment recorded. Plan of Treatment Reminders Order Date Submit Date Provider Last Modified By Organization Details Last Modified Time Details Appointments None record ed. Lab None record ed. Referral None record ed. Procedures None record ed. Surgeries None record ed. Imaging None record ed. Medication Orders None record ed. Patient TargetsNo targets recorded. Patient InstructionsNo instructions recorded. Reason for Referral None Reported. Results Created Date Observation Date Name Description Value Unit Range Abnormal Flag Note LastModifiedBy Organization Detail LastModifiedTime 08/11/20 22 08/11/2022 XR, knee, 3 view eCe [facility] in [address] [address] Patikvng t Name: ZEV Peñaloza LATONIAHENOK YOANNA Patikvng t : 959 Patien t Orderi ng Provid er: SARAHI QUIROZ EXAM DATE: 2021 EXAM: XR LT KNEE 3 VIEWS COMPAR VICENTE: 016 HISTOR Y: Follow -up of prior surger diane MONREAL GS: Again seen is a revisi on left knee total arthro plasty . Lucenc y at the bone-c ement interf vida of the femora l compon ent. There is mild lucenc y adjace nt to the tibial compon ent. No fractu re is identi fied. Contra latera l knee: There are modera te degene rative change s. IMPRES MARGE: 1. There is a left total knee arthro plasty with probab le loosen ing of the femora l compon ent and possib le loosen ing of the tibial compon ent. Interp reted By: Franky wray MD Electr onical ly Signed By: Franky wray MD on 2021 10:53 AM [email or web address] [facility] [address], [place], [address], 08/19/2022 08:22:02 09/01/19 23 09/01/2022 MRI, knee, w/wo contr ast [facility] [address] [place] [address] Patien t Name: ZEV TRAORE CK Patien t : 959 Patien t Orderi ng Provid er: SARAHI QUIROZ EXAM DATE: 2022 EXAM: MR LT KNEE MARS W/WO CONTRA ST HISTOR Y: 62-yea r-old female with a palpab le mass along the anteri or aspect of her left lower leg below the knee. COMPAR VICENTE: Radiog raph dated 2021 FINDIN GS: Marker s are placed along the anteri or aspect of the right lower leg and knee corres pondin g to the palpab le abnorm ality. Deep and betwee n these marker s is a conflu ent soft tissue mass which has increa sed STIR and interm ediate T1 signal . This is along the anteri or margin of the proxim al tibia. This measur es approx imatel y 7.5 cm transv erse, 7 cm cranio caudad , and 2.5 cm AP. After intrav enous admini strati on of 10cc Gadavi st ([facility] [id number]25-0 2), there is conflu ent periph eral enhanc ement of this soft tissue mass with a hetero geneou s area of centra l nonenh anceme nt. There is mild subcut aneous enhanc ement. There is parama gnetic artifa ct from a revisi on left knee arthro plasty . There is decrea sed T1 and possib le increa sed STIR signal adjace nt to the femora l stem. There is no iman decrea sed T1 signal along the tibial stem. No acute fractu re is identi fied. There is mild to modera te atroph y of the muscle s of the knee. IMPRES MARGE: 1. There is a soft tissue mass along the anteri or aspect of the proxim al left tibia adjace nt to an arthro plasty . There is incomp lete and hetero geneou s enhanc ement of this mass. This is most suspic ious for a chroni c hemato ma or incomp letely formed scar tissue , but a neopla sm cannot be defini tively exclud ed. 2. There is a revisi on left knee arthro plasty in place. There is possib le loosen ing of the femora l compon ent. This may be furthe r evalua jovita with bone scan. 3. This study is severe ly limite d by beam harden ing artifa ct from the arthro plasty . Interp reted By: Franky wray MD Electr onical ly Signed By: Franky wray MD on 023 12:20 PM [facility] [address] [place] [address], [phone], 09/22/2022 08:42:27 09/01/19 23 09/01/2022 MRI, knee, w/wo contr ast [address] [address] [place] [address]1 Patien t Name: ZEV NORWOOD Jh LENZ Patien t : 959 Patien t Orderi ng Provid er: SARAHI QUIROZ EXAM DATE: 2022 EXAM: MR LT KNEE MARS W/WO CONTRA ST ADDEND UM: The soft tissue mass could also repres ent an infect ion. Interp reted By: Franky wray MD Electr onical ly Signed By: Franky wray MD on 023 1:09 PM ORIGIN AL REPORT Patien t Name: ZEV CUCO LENZ Patien t : 959 Patien t Orderi ng Provid er: SARAHI QUIROZ EXAM DATE: 2022 EXAM: MR LT KNEE MARS W/WO CONTRA ST HISTOR Y: 62-yea r-old female with a palpab le mass along the anteri or aspect of her left lower leg below the knee. COMPAR VICENTE: Radiog raph dated 2021 FINDIN GS: Marker s are placed along the anteri or aspect of the right lower leg and knee corres pondin g to the palpab le abnorm ality. Deep and betwee n these marker s is a conflu ent soft tissue mass which has increa sed STIR and interm ediate T1 signal . This is along the anteri or margin of the proxim al tibia. This measur es approx imatel y 7.5 cm transv erse, 7 cm cranio caudad , and 2.5 cm AP. After intrav enous admini strati on of 10cc Gadavi st ([facility] [address]- 0325-0 2), there is conflu ent periph eral enhanc ement of this soft tissue mass with a hetero geneou s area of centra l nonenh anceme nt. There is mild subcut aneous enhanc ement. There is parama gnetic artifa ct from a revisi on left knee arthro plasty . There is decrea sed T1 and possib le increa sed STIR signal adjace nt to the femora l stem. There is no iman decrea sed T1 signal along the tibial stem. No acute fractu re is identi fied. There is mild to modera te atroph y of the muscle s of the knee. IMPRES MARGE: 1. There is a soft tissue mass along the anteri or aspect of the proxim al left tibia adjace nt to an arthro plasty . There is incomp lete and hetero geneou s enhanc ement of this mass. This is most suspic ious for a chroni c hemato ma or incomp letely formed scar tissue , but a neopla sm cannot be defini tively exclud ed. 2. There is a revisi on left knee arthro plasty in place. There is possib le loosen ing of the femora l compon ent. This may be furthe r evalua jovita with bone scan. 3. This study is severe ly limite d by beam harden ing artifa ct from the arthro plasty . Interp reted By: Franky wray MD Electr onical ly Signed By: Franky wray MD on 023 12:20 PM [email or web address] [facility] [address] [place], [address], 09/22/2022 08:42:28 09/27/19 24 09/27/2023 [facility] [address] [place] [address] Luis t Name: ZEV stoner : 959 Patikvng t Orderi ng Provid er: LISA STORY EXAM DATE: 2023 EXAM: XR LT KNEE 3 VIEWS COMPAR VICENTE: 2021 HISTOR Y: Follow -up of prior surger diane MONREAL GS: Again seen is a revisi on left knee total arthro plasty . There is lucenc y at the bone-c ement interf vida of the femora l compon ent with adjace nt lucenc y and remode ling of the femora l shaft. There is mild lucenc y adjace nt to the tibial compon ent. No fractu re is identi fied. There is severe spurri ng along the latera l aspect of the patell a. IMPRES MARGE: 1. There is a revisi on left total knee arthro plasty in place with loosen ing of the femora l compon ent, and possib le loosen ing of the tibial compon ent. Interp reted By: Franky wray MD Electr onical ly Signed By: Franky wray MD on 09/27/19 24 3:46 PM [facility] [address] , [place], [address], 09/28/2023 16:18:54 Result Notes Documentation Provider Name and Address Organization Details Recorded Time Xr, Knee, 3 [facility] : [facility] [address] [place] [address] Patient Name: EILEEN MAY Patient : 1960 Patient Ordering Provider: SARAHI HOUGH EXAM DATE: 08/11/2022 EXAM: XR LT KNEE 3 VIEWS COMPARISON: 06/29/2016 HISTORY: Follow-up of prior surgery. FINDINGS: Again seen is a revision left knee total arthroplasty. Lucency at the bone-cement interface of the femoral component. There is mild lucency adjacent to the tibial component. No fracture is identified. Contralateral knee: There are moderate degenerative changes. IMPRESSION: 1. There is a left total knee arthroplasty with probable loosening of the femoral component and possible loosening of the tibial component. Interpreted By: Arthur Pepe MD HI HOUGH PA-C [address] [place] [address], [phone], [facility] 08/19/2022 08:22:02 Mri, Knee, W/wo Contrast : [facility] [address] [place] [address] ADDENDUM #1 Patient Name: EILEEN MAY Patient : 1960 Patient Ordering Provider: SARAHI HOUGH EXAM DATE: 09/01/2022 EXAM: MR LT KNEE MARS W/WO CONTRAST ADDENDUM: The soft tissue mass could also represent an infection. Interpreted By: Arthur Pepe MD ORIGINAL REPORT Patient Name: EILEEN MAY Patient : 1960 Patient Ordering Provider: SARAHI HOUGH EXAM DATE: 09/01/2022 EXAM: MR LT KNEE MARS W/WO CONTRAST HISTORY: 62-year-old female with a palpable mass along the anterior aspect of her left lower leg below the knee. COMPARISON: Radiograph dated 08/11/2022 FINDINGS: Markers are placed along the anterior aspect of the right lower leg and knee corresponding to the palpable abnormality. Deep and between these markers is a confluent soft tissue mass which has increased STIR and 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 T1 signal. This is along the anterior margin of the proximal tibia. This measures approximately 7.5 cm transverse, 7 cm craniocaudad, and 2.5 cm AP. After intravenous administration of 10cc Gadavist ([facility] [id number]), there is confluent peripheral enhancement of this soft tissue mass with a heterogeneous area of central nonenhancement. There is mild subcutaneous enhancement. There is paramagnetic artifact from a revision left knee arthroplasty. There is decreased T1 and possible increased STIR signal adjacent to the femoral stem. There is no iman decreased T1 signal along the tibial stem. No acute fracture is identified. There is mild to moderate atrophy of the muscles of the knee. IMPRESSION: 1. There is a soft tissue mass along the anterior aspect of the proximal left tibia adjacent to an arthroplasty. There is incomplete and heterogeneous enhancement of this mass. This is most suspicious for a chronic hematoma or incompletely formed scar tissue, but a neoplasm cannot be definitively excluded. 2. There is a revision left knee arthroplasty in place. There is possible loosening of the femoral component. This may be further evaluated with bone scan. 3. This study is severely limited by beam hardening artifact from the arthroplasty. Interpreted By: Arthur Pepe MD HI HOUGH PA-C [address] [place] [address], [phone], [facility] 09/22/2022 08:42:28 Mri, Knee, W/wo Contrast : [address] [address] Patient Name: EILEEN MAY Patient : 1960 Patient Ordering Provider: SARAHI HOUGH EXAM DATE: 09/01/2022 EXAM: [facility] KNEE MARS W/WO CONTRAST HISTORY: 62-year-old female with a palpable mass along the anterior aspect of her left lower leg below the knee. COMPARISON: Radiograph dated 08/11/2022 FINDINGS: Markers are placed along the anterior aspect of the right lower leg and knee corresponding to the palpable abnormality. Deep and between these markers is a confluent soft tissue mass which has increased STIR and 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 T1 signal. This is along the anterior margin of the proximal tibia. This measures approximately 7.5 cm transverse, 7 cm craniocaudad, and 2.5 cm AP. After intravenous administration of 10cc Gadavist ([facility] [address]-20), there is confluent peripheral enhancement of this soft tissue mass with a heterogeneous area of central nonenhancement. There is mild subcutaneous enhancement. There is paramagnetic artifact from a revision left knee arthroplasty. There is decreased T1 and possible increased STIR signal adjacent to the femoral stem. There is no iman decreased T1 signal along the tibial stem. No acute fracture is identified. There is mild to moderate atrophy of the muscles of the knee. IMPRESSION: 1. There is a soft tissue mass along the anterior aspect of the proximal left tibia adjacent to an arthroplasty. There is incomplete and heterogeneous enhancement of this mass. This is most suspicious for a chronic hematoma or incompletely formed scar tissue, but a neoplasm cannot be definitively excluded. 2. There is a revision left knee arthroplasty in place. There is possible loosening of the femoral component. This may be further evaluated with bone scan. 3. This study is severely limited by beam hardening artifact from the arthroplasty. Interpreted By: Arthur Pepe MD HI HOUGH PA-C [address] [place], [address], [facility] 09/22/2022 08:42:27 Xr, Knee, 3 [facility] : [facility] [address] [place] [address] Patient Name: EILEEN MAY Patient : 1960 Patient Ordering Provider: LISA STORY EXAM DATE: 09/27/2023 EXAM: XR LT KNEE 3 VIEWS COMPARISON: 08/11/2022 HISTORY: Follow-up of prior surgery. FINDINGS: Again seen is a revision left knee total arthroplasty. There is lucency at the bone-cement interface of the femoral component with adjacent lucency and remodeling of the femoral shaft. There is mild lucency adjacent to the tibial component. No fracture is identified. There is severe spurring along the lateral aspect of the patella. IMPRESSION: 1. There is a revision left total knee arthroplasty in place with loosening of the femoral component, and possible loosening of the tibial component. 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 From Automated Load;Prov ider: Suzie Guerrier;St atus: Active Gayle Mckeon [facility] 4 08:21:42 Type 2 diabetes mellitus without complicat ion 938149876 Active 2015 From Automated Load;Prov ider: Pooja Ricketts; Status: Active Gayle Mckeon [facility] 4 08:21:42 Hypertens qiana disorder 34403815 Active 2015 From Automated Load;Prov ider: Pooja Ricketts; Status: Active Gayle Mckeon [facility] 4 08:21:42 Venous embolism 624227410 Active 2015 From Automated Load;Prov ider: Pooja Ricketts; [facility]: [facility] 08:[facility] Deep venous thrombosi s of lower extremity 440957619 Active 2015 From Automated Load;Prov ider: Pooja Ricketts; Status: [facility] 08:21:42 Anemia 930491374 Active 2015 From Automated Load;Prov ider: Aislinn Robin;St atus: Active Gayle Mckeon [facility] 4 08:21:42 Coronary arteriosc lerosis in pauma artery 667714407620 7 Active 2015 From Automated Load;Prov ider: Aislinn Robin; atus: [facility] 4 08:21:41 Prostheti c joint infection 498148545 [place] [address] [place] [address], [phone], [facility] 4 11:50:07 Problem Notes None recorded. Procedures Surgical History Date Name Laterality Status Provider Name and Address Organization Details Recorded Time 4 Aspiration Joint/Bursa, Major completed LISA STORY PA-C [address] [place], [phone], [facility] 09/27/2023 16:07:18 Imaging Results None recorded. Procedure Notes None recorded. Medical Equipment None Reported. Allergies Allergen ID Allergen Name Allergen Category Reaction Reaction Severity Criticality Documentation Date Start Date Code Code System Note Provider Name and Address Organization Details Recorded Time 872592 Substance with sulfonami de structure and antibacte rial mechanism of action (substanc e) medicatio n Not available Not available Not available 07/16/20162015 64675 8003 SNOMED Comme nt: Creat ed By: Simone salinas;Cre ated Date: 2015 2:50: 12 PM; Not Available [facility] 6 09:33:23 811280 Wellbutri n medicatio n Not available Not available Not available 07/16/20162015 05586 RxNorm Comme nt: Creat ed By: Simone salinas;Cre ated Date: 2015 2:50: 46 PM; Not Available [facility] 6 09:47:17 755685 acetamino phen / hydrocodo ne medicatio n Not available Not available Not available 07/16/20162015 36449 2 RxNorm Comme nt: Creat ed By: Simone salinas;Cre ated Date: 2015 2:50: 59 PM; Not Available [facility] 6 09:47:18 204424 Ultram medicatio n Not available Not available Not available 07/16/20162015 27002 6 RxNorm Comme nt: Creat ed By: Simone lockhartCre ated Date: 2015 2:51: 14 PM; Not Available [facility] 6 10:10:25 Medications Name Sig Start Date Stop Date Status Note LastModified by Organization Details LastModified Time anastrozo le 1 mg tablet Take 1 tablet every day by oral route. active Not Available Not Available No t Available loperamid e 2 mg capsule Take by oral route. active Not Available Not Available No t Available senna 8.6 mg tablet Take 2 tablets every day by oral route. active Not Available Not Available No t Available amlodipin e 5 mg tablet Take 1 tablet every day by oral route. active Not Available Not Available No t Available Plavix 75 mg tablet Take 1 tablet every day by oral route. active Not Available Not Available No t Available DuoNeb 0.5 mg-3 mg(2.5 mg base)/3 mL solution for nebulizat ion Inhale 3 mL 4 times a day by nebuliza tion route. active Not Available Not Available No t Available Fosamax 70 mg tablet Take 1 tablet every week by oral route. active Not Available Not Available No t Available Lipitor 40 mg tablet Take 1 tablet every day by oral route. active Not Available Not Available No t Available baclofen 10 mg tablet Take 1 tablet 3 times a day by oral route. active Not Available Not Available No t Available Percocet 5 mg-325 mg tablet Take 2 tablets every 4-6 hours by oral route for 10 days. 08/11 completed Mailed to [facility] , [address] [place] [address] Not Available Not Available Not Available doxycycli ne hyclate 100 mg tablet Take 1 tablet twice a day by oral route. active Not Available Not Available No t Available Tylenol Extra Strength 500 mg tablet Take 1 tablet every 6 hours by oral route. active Not Available Not Available No t Available Coreg 12.5 mg tablet Take 1 tablet twice a day by oral route. active Not Available Not Available No t Available Zofran active Not Available Not Availa ble Not Available glipizide active Not Available Not Racheal ilable Not Available Acid Gone active Not Available Not Racheal ilable Not Available Vitals Date Recorded Body height Body mass index (BMI) Body weight Provider Name and Address Organization Details Last Updated DateTime 09/01/2022 162.56 cm 37.6 kg/m2 93060.73 g [facility] 09/01/2022 12:30:28 Date Recorded Body height Provider Name an d Address Organization Details Last Updated DateTime 09/27/2023 162.56 cm [facility] 0 09/27/2023 14:45:54 Date Recorded Body height Provider Name an d Address Organization Details Last Updated DateTime 10/25/2023 162.56 cm [facility] 11:45:38 Date Recorded Body weight Body mass index (BMI) Body height Provider Name and Address Organization Details Last Updated DateTime 08/11/2022 16423.73 g 37.6 kg/m2 162.56 cm [facility] 08/11/2022 11:07:51 Social History None recorded. Functional Status None recorded. Mental Status None recorded. Family History Nothing Reported. 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 No medical history recorded. Gynecological HistoryNo gynecological history recorded. Obstetrics History GPAL:G 0 P 0 0 0 0 Past Encounters Encounter ID Performer Location Encounter Start Date Encounter Closed Date Diagnosis/Indication Diagnosis SNOMED-CT Code Diagnosis ICD10 Code Diagnosis Note [id number] SARAHI HOUGH PA-C [facility] [address] [place] [id number] 08/11/2022 10:13:36 08/11/2022 12:53:20 Mass of joint of left knee 8746622973 9247667 M25.862 Assessment : History of left knee revision arthroplas ty with history of prosthetic joint infection maintained on doxycyclin e 100 mg with firm mass medial kneePlan: Obviously the main concern is potential reinfectio n of her prosthesis . Ultimately , she has no pain into the knee with good motion. She is maintained on large doses of doxycyclin e 100 mg 3 tablets twice daily by Dr. Dougherty .X-rays do show concerns of lucency of the femoral component as well as tibial component. My main concern at this point is the firm nodule of the medial knee that appears to be a size of 7 cm x 6 cm. There is shadowing on x-ray. Sarcoma cannot be ruled out. Would like to obtain MRI with and without contrast of the knee. This will also get a better view of potential loosening. We will have patient return after MRI for further discussion . All question and concerns were addressed at this time. 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 There is a small area of concern along the pes insertion consistent with a mass. I did discuss these findings with our radiologis t. He cannot rule out possible neoplasm. I do believe this needs to be worked up further. We will make a formal referral to heme-onc for FNA with biopsy and cultures. Differenti al diagnosis, neoplasm, hematoma, scar tissue, infection. At this time, she will continue with her doxycyclin e as prescribed by Dr. Dougherty with infectious disease. If FNA is unremarkab le. I do believe further testing within the knee is necessary. There is evidence of possible reinfectio n with periosteal reaction of the distal femur and some lucency around the prosthesis . However, she is already had revision, additional surgery would not be recommende d due to no systemic effects and minimal knee pain. My main concern is ruling out malignancy prior to further work-up. Will have patient referred to heme-onc for this work-up and will have her return to the office once cultures and biopsy have returned. Patient does agree with this action and plan. All question and concerns were addressed at this time. 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 May is a pleasant 63-year-ol d female with an extensive, complex history with multiple rounds of revision complicate d by chronic periprosth etic joint infection- ( Infection was found to be staph). She has been managed with infectious disease by Dr. Dougherty and is taking doxycyclin e 100 mg twice daily chronicall y. She currently stays at a assisted, [place] facility. She states she has had purulent and serosangui neous fluid running from her incision for the past few months. She has not sought treatment for this prior to today's appointmen t. Due to her difficult case, her next surgical option is likely an amputation . We elected to proceed with a knee aspiration today to see if this is a new bacteria or if she is still battling the same one. I will have her follow back up in [address] Sotelo for a formal surgical discussion once Synovasure analysis is completed. [id number] SUZIE Richards MD ORTHOPEDI CS [facility] CLOSED [address] [place] [address] 10/25/2023 11:27:50 10/25/2023 13:02:53 Prosthetic joint infection [id number] ASSESSMENT : Chronic recurrent PJI left TKA, status post previous two-stage revision, staph lugdunensi s PLAN: Eileen has clear evidence of recurrent loosening of her femoral component. 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 This has been chronic, despite oral suppressio n. Given her numerous comorbidit ies, and minimal ambulatory status, our recommenda tion continues to be for above-knee amputation . This recommenda tion has been echoed by colleagues at [facility] orthopedic s. At this point, Malathi is amenable to amputation . I have discussed her case with Dr. Will garcia, who has kindly agreed to assist us with the procedure. We will coordinate with his office regarding surgical scheduling , but tentative plan for above-knee amputation on December 08 at [facility]. From a technical standpoint , we will proceed with removal of her femoral component in an effort to maximize stump length. Dr. Gala garcia will obtain control of the vessels, and complete the amputation . We reviewed the procedure in detail, as well as the attendant risks and benefits. Primary risk would be wound healing complicati on, as well as progressio n of osteomyeli tis, which could require revision amputation . We reviewed the risk of medical complicati ons including, but not limited to, venous thromboemb olic disease, pulmonary complicati ons, cardiac complicati ons, stroke, and . All questions were answered to the best my ability. [id number] SUZIE Richards MD SURGERY SCHEDULE [address] [place] [address] 12/14/2023 08:58:40 12/16/2023 10:03:36 Health Concerns Section Related Observation LastModified by Organization Detai ls LastModified Time None Recorded Concern Status LastModified by Organization Details LastModified Time None Recorded Advance Directives Directive None Recorded Payers Insurance Date Sequence Insurance Name Policy Number Policy Horan Covered Member ID Horan Member ID Guarantor Name 12/13/2023 2 [place] [place] FFS/TRADITION AL Eileen May [id number] Eileen May 10/12/2023 2 [place]TRADITION [place] Eileen May [id number] Eileen May 10/12/2023 [facility] Eileen Jh uGy [id number] Eileen May 12/06/2023 1 [place] Eileen Jh Guy [id number] Eileen May Notes Date Note Type Note Provider Name and Address Organization Details Recorded Time 08/11/2022 text/html [id number] is 5 years S/P L TKA preformed in January of 2016. She returns with no pain or concerns to her TKA. She does have a visable nodule to anterior aspect of knee that is painful to touch 8/10 and she feels is causing her difficulty walking. She is inpatient at [facility] and comes ambualtign in wheelchair today. Patient does have known history of prosthetic joint infection 2016 that they require revision with two-stage revision performed Dr. Rodriguez. Infection was Staphylococcus. She is maintained on doxycycline 100 mg 3 tablets twice daily by Dr. Murdock has been on this ever since 2015. She does tolerate the medication okay. She reports no pain inside the knee with no obvious swelling but does report large nodule of the anterior aspect just below her knee. The area is painful to touch. No warmth. No fluctuance. She is here today for evaluation and treatment options. SARAHI HOUGH PA-C [address] [place] [address], [id number], [facility] 08/11/2022 13:06:31 09/01/2022 text/html 09/01/2022MrsSebastian May is 5 years S/P L TKA preformed in January of 2016 returns to discuss [place] [facility] results. She comes to appointment accompanied by caregiver from [facility]. She remains using wheelchair. Since last visit she voices increased swelling that since subsided with use of elevation and ICE but increased pain severity of 7/10 especially when trying to bear weight. Patient does have known history of prosthetic joint infection 2016 that they require revision with two-stage revision performed Dr. Rodriguez. Infection was Staphylococcus. She is maintained on doxycycline 100 mg 3 tablets twice daily by Dr. Murdock has been on this ever since 2015. She is taking tylenol 500 mg b.i.d for pain with no benefit. [id number] is 5 years S/P L TKA preformed in January of 2016. She returns with no pain or concerns to her TKA. She does have a visable nodule to anterior aspect of knee that is painful to touch 8/10 and she feels is causing her difficulty walking. She is inpatient at [facility] and comes ambualtign in wheelchair today. Patient does have known history of prosthetic joint infection 2016 that they require revision with two-stage revision performed Dr. Rodriguez. Infection was Staphylococcus. She is maintained on doxycycline 100 mg 3 tablets twice daily by Dr. Murdock has been on this ever since 2015. She does tolerate the medication okay. She reports no pain inside the knee with no obvious swelling but does report large nodule of the anterior aspect just below her knee. The area is painful to touch. No warmth. No fluctuance. She is here today for evaluation and treatment options. SARAHI HOUGH PA-C [address] [place], [address], [facility] 09/01/2022 13:56:37 09/27/2023 text/html 09/27/23 Mrs. May is present for routine evaluation of L TKA 02/18/2016. She comes to appointment accompanied by caregiver from [facility]. Patient does have known history of prosthetic joint infection 2016 that they require revision with two-stage revision performed Dr. Rodriguez. Infection was Staphylococcus. She is maintained on doxycycline 100 mg 2 tablets twice daily by Dr. Murdock has been on this ever since 2015. She is present ambulating with wheelchair, non weightbearing. 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 Two-stage revision in 2016 with me. She has had chronic reinfection for at least the past few years. We had recommended above-knee amputation, which she has been resistant to. Additionally, we have also sent her for second opinion at , and Dr. Parekh agreed that AKA was really the only definitive surgical option. Repeat aspiration reveals chronic PJI withstaph lugdunensis. I believe that cultures from her index operation were LILIAN, however. We reviewed this at her last visit with Lisa about a month ago. Shortly thereafter, she was readmitted to [facility] in acute renal failure. That improved with medical treatment and fluid resuscitation. During that hospitalization, I saw her in consultation, as did Dr. Beasley. She has since acquiesced to above-knee amputation. Since her discharge from the hospital, no major change in her symptoms. Pain is not her primary concern at this juncture. She denies fevers or chills. She continues to experience drainage from the medial portion of her incision. Minimally ambulatory at baseline, primarily utilizes a wheelchair. 09/27/23 Mrs. May is present for routine evaluation of L TKA 02/18/2016. She comes to appointment accompanied by caregiver from [facility]. Patient does have known history of prosthetic joint infection 2016 that they require revision with two-stage revision performed Dr. Rodriguez. Infection was Staphylococcus. She is maintained on doxycycline 100 mg 2 tablets twice daily by Dr. Dougherty has been on this ever since 2015. She is present ambulating with wheelchair, non weightbearing. Pain severity averages 8/10 with use of oxycodone 5/325 mg b.i.d PRN 09/01/2022Mrs. Guy is 5 years S/P L TKA preformed in January of 2016 returns to discuss [place] results. She comes to appointment accompanied by caregiver from [facility]. She remains using wheelchair. Since last visit she voices increased swelling that since subsided with use of elevation and ICE but increased pain severity of 7/10 especially when trying to bear weight. [id number] is 5 years S/P L TKA preformed in January of 2016. She returns with no pain or concerns to her TKA. She does have a visable nodule to anterior aspect of knee that is painful to touch 8/10 and she feels is causing her difficulty walking. She is inpatient at [facility] and comes ambualtign in wheelchair today. Patient does have known history of prosthetic joint infection 2016 that they require revision with two-stage revision performed Dr. Rodriguez. She does tolerate the medication okay. She reports no pain inside the knee with no obvious swelling but does report large nodule of the anterior aspect just below her knee. The area is painful to touch. No warmth. No fluctuance. She is here today for evaluation and treatment options. SUZIE RODRIGUEZ MD [address] [place], [address], [facility] 10/30/2023 11:53:31 OBGyn Episode No OBEpisode recorded.
--- OUTSIDE RECORDS SUMMARY | 2025-02-20 07:07 | XMS_ITS | Referral Summary ---
Author Organization [employer] ([place], [place], [place], [place]) Address [address] [place] [address] Care Team Providers Care Operator Bearer Systems Name Role Phone [facility], Provider Not In The System MD [...] 01/04/2023 Dehydration with hyponatremia 01/04/2023 Hyperlipidemia 01/04/2023 Social History Tobacco Use Types Packs/Day Years [...] Do you speak a language other than Slovenian at ho me? No 12/09/2023 Do you [...] 12/09/2023 12:16 PM EDT Plan of Treatment Not on file Procedures Procedure Name Priority Date/Time Associated Diagnosis Comments HEMOGLOBIN A1C Routine 11/25/2023 11:24 AM EDT Preop testing from Last 3 Months or Most Recently Relevant to Health Maintenance Results * Hemoglobin A1c (11/25/2023 11:24 AM EDT) Hemoglobin A1C 11.7 % 11/25/2023 5:31 PM EDT [facility] Comment: Hemoglobin A1C levels are related to mean glucose during the preceding 2-3 months. Less than 7% demonstrates glycemic control in diabetic patients. Hemoglobin AlC % Suggested Diagnosis > or = 6.5 Diabetic 5.7 - 6.4 Prediabetic <5.7 Non-diabetic eAVG Glucose 289.09 mg/dL 11/25/2023 5:31 PM EDT [facility] Blood Venipuncture / Unknown 11/25/2023 11:24 AM EDT 11/25/2023 1:46 PM EDT Radha Ram MD LAB BLOOD ORDERABLES Fi nal Result [facility] [address] [place] [address], [facility] [phone] from Last 3 Months or Most Recently Relevant to Health Maintenance Insurance MEDICARE PART A B MEDICAID OF [place] Advance Directives For more information, please contact: [phone] * Full Code (Latest Code Status on [...] Relationship Healthcare Agent Relationshi p Communication Val Howell Sister First Alternate Healthcare Decision-Maker Care Teams Operator Bearer Systems Relationship Specialty Start Date End Date [facility], Provider Not In The System, [place] [address] PCP - General 10/05/23
--- OUTSIDE RECORDS SUMMARY | 2025-02-20 07:07 | XMS_ITS | Encounter Summary ---
Author Organization [facility] Address [address] [place] [address] Care Team Providers Care Spray Worker Name Role Phone Daniel Barba MD Primary Care Provider [phone] Judy Huff CODING COORDINATOR Unavailable UnavailCayla Carvajal APRN, DNP Unavailable [phone] Vignesh Pickens MD Primary Care Provider + [phone] Encounter Details Date Type Department Care Team (Late Contact Info) Description 08/11/2022 Orders Only External Location [address] [place] [address] Provider, External Social History Tobacco Use Types [...] Encounters Date Type Department Care Team (Late Contact Info) Description 03/07/2025 10:00 AM EDT Office Visit [facility] [address] [place] [address] Doug Chapman MD [address] [place] [address] 03/27/2025 10:30 AM EDT Appointment [facility] Ultrasound [address] [place] [address] 03/27/2025 11:50 AM EDT Clinical Support Medical [facility] Building Lab [address] [place] [address] 03/27/2025 1:00 PM EDT Office Visit [facility] Urology [address] [facility], [address] [place] [address] Cayla Erazo, CUT TO LENGTH OPERATOR, DNP [address] [place] [address] 05/16/2025 8:00 AM EDT Office Visit [facility] [place] [address] [facility], [address] [place] [address] Karly Gracia MD [address] [place] [address] 06/07/2025 1:00 PM EDT Office Visit [facility] [address] [place] [address] Tom Iraheta MD [address] [place] [address] documented as of this encounter Procedures Procedure Name Priority Date/Time Associated Diagnosis Comments XR KNEE LEFT 3 VIEWS 08/11/2022 10:37 AM EST documented in this encounter Results * XR Knee Left 3 Views (08/11/2022 10:37 AM EST) Anatomical Region Laterality Modality Lower Extremities, Knee Left Digital Radiography 08/11/2022 10:3 7 AM EST us External Provider IMG XR PROCEDURES Final Result documented in this encounter Visit Diagnoses Not on filedocumented in this encounter Additional Health Concerns Infection Onset Date Last Indicated Resolved Time Respiratory Rule-Out 08/15/2024 08/15/2024 024 6:31 PM EST MRSA 09/26/2024 09/26/2024 documented as of this encounter Care Teams Spray Worker Relationship Specialty Start Date End Date Daniel Barba MD [address] [place] [address] PCP - General 01/02/21 12/30/24 Vignesh Pickens MD [address] [place] [address] PCP - General 12/31/24 Judy Huff, CODING COORDINATOR [facility] Nurse 08/24/24 08/24/24 Cayla Erazo APRN, [facility] [id number] [place] [address] Nurse Practitioner Urology 12/20/24 documented as of this encounter
--- OUTSIDE RECORDS SUMMARY | 2025-02-20 07:07 | XMS_ITS | Encounter Summary ---
Author Organization [facility] Address [address] [place] [address] Care Team Providers Care Machine Puller Name Role Phone Cayla Erazo APRN, DNP Unavailable Vignesh Pickens MD Primary Care Provider [phone] Encounter Details Date Type Department Care Team (Latest Contact Info) Description 01/31/2025 Travel Social History Tobacco Use Types Packs/Day [...] in the past [address] [facility], were you homeless or living in a [...] drink first t rodríguez in the morning (EYE-SOLID WASTE TECHNICIAN) to steady your nerves or to get [...] Orosco, RN documented as of this encounter Plan of Treatment Upcoming Encounters Date Type Department Care Team (Late st Contact Info) Description 03/07/2025 10:00 AM EDT Office Visit [facility] Urology [address] [place] [address] Doug Chapman MD [id number] [place] [address] 03/27/2025 10:30 AM EDT Appointment [facility] Ultrasound [address] [place] [address] 03/27/2025 11:50 AM EDT Clinical Support Medical Office Building Lab [address] [place] [address] 03/27/2025 1:00 PM EDT Office Visit Medical Office Building Urology [address] [facility], [address] [place] [address] Cayla Erazo APRN, DNP [address] [facility] [address] [place] [address] 05/16/2025 8:00 AM EDT Office Visit [facility] [place] [address] [facility], [address] [place] [address] Karly Gracia MD [address] [place] [address] 06/07/2025 1:00 PM EDT Office Visit [facility] [address] [place] [address] Tom Iraheta MD [address] [place] [address] documented as of this encounter [...] documented as of this encounter Care Teams Machine Puller Relationship Specialty Start Date End Date Vignesh Pickens MD [address] [place] [address] PCP - General 12/31/24 Cayla Erazo APRN, DNP [address] [facility] [address] [place] [address] Nurse Practitioner Urology 12/20/24 documented as of this encounter
--- OUTSIDE RECORDS SUMMARY | 2025-02-20 07:07 | XMS_ITS | Encounter Summary ---
Author Organization [facility] Address [address] [place] [address] Care Team Providers Care Flame Planer Name Role Phone Cayla Erazo APRN, DNP Unavailable [phone] Vignesh Pickens MD Primary Care Provider [phone] Encounter Details Date Type Department Care Team (Latest Contact Info) Description 01/24/2025 Travel Social History Tobacco Use Types Packs/Day [...] time in the past 12 m [facility], were you homeless or living in a [...] drink first t rodríguez in the morning (EYE-MEDICAL TERRITORY MANAGER) to steady your nerves or to [...] [address] [place] [address] Doug Chapman MD [address] [facility] [address] [place] [address] 03/27/2025 10:30 AM EDT Appointment [facility] Ultrasound [address] [place] [address] 03/27/2025 11:50 AM EDT Clinical Support Medical Office Building Lab [address] [place] [address] 03/27/2025 1:00 PM EDT Office Visit Medical Office Building Urology [address] [facility], [address] [place] [address] Cayla Erazo APRN, [place] [id number] [place] [address] 05/16/2025 8:00 AM EDT Office Visit [facility] [place] [address] [facility], [address] [place] [address] Karly Gracia MD [address] [place] [address] 06/07/2025 1:00 PM EDT Office Visit [facility] [address] [place] [address] Tom Iraheta MD [address] [place] [address] documented as of this encounter [...] documented as of this encounter Care Teams Flame Planer Relationship Specialty Start Date End Date Vignesh Pickens MD [address] [id number] PCP - General 12/31/24 Cayla Erazo APRN, [place] [address] [place] [address] Nurse Practitioner Urology 12/20/24 documented as of this encounter
--- OUTSIDE RECORDS SUMMARY | 2025-02-20 07:07 | XMS_ITS | Encounter Summary ---
Author Organization [facility] Address [address] [place] [address] Care Team Providers Care Supervisor Coin Machine Name Role Phone Daniel Barba MD Primary Care Provider [phone] Cayla Erazo APRN, [facility] Unavailable [phone] Vignesh Pickens MD Primary Care Provider [phone] Encounter Details Date Type Department Care Team (Late st Contact Info) Description 10/19/2024 Orders Only External Location [address] [place] [address] Provider, External Social History Tobacco Use Types [...] Answer Date Recorded Patient Health Questionnaire-2 Score 4 09/26/2024 Hunger Vital Sign Answer Date Recorded Within [...] drink first t rodríguez in the morning (EYE-TOE CLOSING MACHINE TENDER) to steady your nerves or to get [...] Upcoming Encounters Date Type Department Care Team ([facility] st Contact Info) Description 03/07/2025 10:00 AM EDT Office Visit [facility] Urology [address] [place] [address] Doug Chapman MD [address] [place] [address] 03/27/2025 10:30 AM EDT Appointment [facility] Ultrasound [address] [place] [address] 03/27/2025 11:50 AM EDT Clinical Support Medical Office Building Lab [address] [place] [address] 03/27/2025 1:00 PM EDT Office Visit Medical Office Building Urology [address] [facility], [address] [place] [address] Cayla Erazo, COLLATERAL SPECIALIST, DNP [id number] [place] [address] 05/16/2025 8:00 AM EDT Office Visit [facility] [place] [address] [facility], [address] [place] [address] Karly Gracia MD [address] [place] [address] 06/07/2025 1:00 PM EDT Office Visit [facility] [address] [place] [address] Tom Iraheta MD [address] [place] [address] documented as of this encounter Procedures Procedure Name Priority Date/Time Associated Diagnosis Comments US OUTSIDE IMAGES 10/19/2024 1:44 PM EST documented in this encounter Results * US OUTSIDE IMAGES (10/19/2024 1:44 PM EST) Anatomical Region Laterality Modality Ultrasound 10/19/2024 1:44 PM EST us External Provider IMG US PROCEDURES Final Result documented in this encounter Visit Diagnoses Not on filedocumented in this encounter Additional Health Concerns Infection Onset Date Last Indicated 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/26/2024 Assessment Noted Time PHQ-9 Depression Total Score: 13 025 10:12 AM EST A fall risk assessment has been complete d for the patient 09/26/2024 10:12 AM EST A Body Mass Index follow-up plan has been documented for the patient 10/12/2024 12:53 PM EST documented as of this encounter Care Teams Supervisor Coin Machine Relationship Specialty Start Date End Date Daniel Barba MD [address] [place] [address] PCP - General 01/02/21 12/30/24 Vignesh Pickens MD [address] [place] [address] PCP - General 12/31/24 Cayla Erazo APRN, DNP [address] [place] [address] Nurse Practitioner Urology 12/20/24 documented as of this encounter
[2025-02-20 07:21] LABS: Hematocrit 30.0 % (37.0-47.0); Hemoglobin 9.5 g/dL (12.2-16.2); Immature Granulocytes % 0.5 %; Mean Corpuscular HGB Conc 31.7 g/dL (31.8-35.4); Mean Corpuscular Hemoglobin 26.0 pg (27.0-31.2); Mean Corpuscular Volume 82.0 fl (81-99); Nucleated Red Blood Cells % 0 %; Platelet Count 336 K/mm3 (142-424); Red Blood Count 3.66 M/mm3 (4.20-5.40); Red Cell Distribution Width-SD 44.7 fL; White Blood Count 11.0 K/mm3 (4.8-10.8)
[2025-02-20 07:55] LABS: Anion Gap 14.6 mEq/L (5-15); Blood Urea Nitrogen 35 mg/dl (7-17); Calcium 8.1 mg/dl (8.4-10.2); Carbon Dioxide 28 mmol/L (22.0-30.0); Chloride 83 mmol/L (98-107); Creatinine,Serum 2.30 mg/dl (0.52-1.04); Estimated Glomerular Filt Rate 21 ml/min (>60); GFR (African American) 26 ML/MIN (>60); Glucose 53 mg/dl (74-100); Potassium 4.6 mmoL/L (3.5-5.1); Sodium 121 mmol/L (136-145)
[2025-02-20 11:23] LABS: Hemoglobin A1C 11.4 % (4.0-6.0)
[2025-02-20 14:30] LABS: Chloride 84 mmol/L (98-107); Sodium 123 mmol/L (136-145)
[2025-02-20 14:31] LABS: Potassium 4.9 mmoL/L (3.5-5.1)
[2025-02-20 14:33] LABS: Blood Urea Nitrogen 37 mg/dl (7-17); Creatinine,Serum 2.40 mg/dl (0.52-1.04); Estimated Glomerular Filt Rate 20 ml/min (>60); GFR (African American) 25 ML/MIN (>60)
[2025-02-20 14:34] LABS: Anion Gap 19.9 mEq/L (5-15); Calcium 8.6 mg/dl (8.4-10.2); Carbon Dioxide 24 mmol/L (22.0-30.0); Glucose 150 mg/dl (74-100)
== END 2025-02-20 23:59 | disposition home or self-care (01) ==
PROVIDERS: PCP Nurse Practitioner Family; Visit Provider Nurse Practitioner Family
DX: I10 Essential (primary) hypertension (principal); E11.9 Type 2 diabetes mellitus without complications
CPT/HCPCS: 36415; 80048; 83036; 85025

== ENCOUNTER 2025-02-20 13:06 | Outpatient (CLI) | payer MEDICARE, MEDICAID, SELFPAY ==
--- OUTSIDE RECORDS SUMMARY | 2024-12-20 09:20 | XMS_ITS | Encounter Summary ---
Author Organization [facility] Address [address] [place] [address] Care Team Providers Care Home Fire Alarm Installer Name Role Phone Daniel Barba MD Primary Care Provider [phone] Cayla Erazo APRN, DNP Unavailable Vignesh Pickens MD Primary Care Provider [phone] Reason for Referral * Imaging (Routine) - Closed Specialty Diagnoses / Procedures Referred By Clara stoner Referred To Contact Radiology Diagnoses Gross hematuria Procedures CT Urogram Cayla Erazo APRN, DNP [address] [address] Phone: tel: fax: Referral ID Status Reason Start Date Expiration Date Visits Re quested Visits Authorized [id number] Closed 12/25/2024 06/26/2026 1 1 * Other Medical (Routine) - Pending Review Specialty Diagnoses / Procedures Referred By Clara stoner Referred To Contact Urology Diagnoses Gross hematuria Procedures Cysto- Urology Cayla Erazo APRN, DNP [address] [address] Phone: tel: fax: Referral ID Status Reason Start Date Expiration Date V isits Requested Visits Authorized [id number] Pending Review 12/25/2024 06/26/2026 1 1 * Imaging (Routine) - Authorized Specialty Diagnoses / Procedures Referred By Clara stoner Referred To Contact Radiology Diagnoses Hydronephrosis, unspecified hydronephrosis type Procedures US Renal Complete Cayla Erazo APRN, DNP [address] [address] Phone: tel: fax: Referral ID Status Reason Start Date Expiration Date V isits Requested Visits Authorized [id number] Authorized 12/20/2024 06/21/2026 1 1 Reason for Visit * Reason Comments Female Incontinence * Other Medical (Routine) - Closed Specialty Diagnoses / Procedures Referred By Clara stoner Referred To Contact Urology Diagnoses Hydronephrosis, unspecified hydronephrosis type Urinary retention Procedures UDS Cayla Erazo APRN, DNP [address] [address] Phone: tel: fax: Referral ID Status Reason Start Date Expiration Date Visits Re quested Visits Authorized [id number] Closed 11/08/2024 05/10/2026 1 1 Encounter Details Date Type Department Care Team (Latest Contact Info) Description 12/20/2024 9:20 AM EDT Office Visit [place] [facility] [address] [place] [address] Cayla Erazo APRN, DNP [address] [address] Recurrent UTI (Primary Dx); Hydronephrosis, [...] any time in the past 12 m [facility], were you homeless or living in a alf (including now)? No 08/20/2024 CAGE ASSESSMENT Answer [...] drink first t rodríguez in the morning (EYE-BATTERY BUILDER) to steady your nerves or to get rid of a hangover? 0 08/15/2024 CAGE Questionnaire Score 0 024 Utilities Answer Date Recorded In the past 12 months has e [employer], gas, oil, or water [employer] threatened to shut off services in your [...] Notes * Progress Notes - Cayla Erazo, TRAINING AND DEVELOPMENT ASSISTANT, DNP - 12/20/2024 9:20 AM EDTAssociated Order(s): UDS Pre-Procedure Diagnose(s): Hydronephrosis, unspecified hydronephrosis type; Urinary retention Post-Procedure Diagnose(s): Hydronephrosis, unspecified hydronephrosis type; Urinary retention [facility] Urology Clinic Note CC: Female Incontinence HPI: Eileen Tovar is a 64 y.o. F who was initially evaluated in Sep 2024 for diagnosis ofbilateral hydronephrosis in Jul 2024 thought to be 2/2 severe constipation. She was treated for UTIwhile inpatient at [facility] and had improvement in renal function and hydronephrosis with indwelling Parekh catheter that was removed prior to discharge to [facility] in [place]. She is a limited historian, presented in a wheelchair, and is accompanied by a staff member from [facility] without further information provided. She was most [...] useof LUE. She also has PVD, COPD, [place], and DVT treated with 2 blood thinners. She denies ever being impacted with stool before and reportedly sees an outside urologist/plastic extruding machine operator who presents to the SNF, but could [...] were no vitals filed for this visit. Mixologist present during entire exam General: Pleasant, alert, [...] or skin jesus present. Imagin10/05/23: ROMEO at [place] resulted moderate cortical thinning of kidneys and [...] DNP Authorized by: Cayla Erazo APRN, DNP [place] Protocol: Time out called at: 12/20/2024 10:28 [...] Essential (primary) hypertension CAD (coronary artery disease), [place] coronary artery Controlled diabetes mellitus type II without complication Iron deficiency anemia Second hand smoke exposure Acute kidney injury superimposed on CKD ([facility]/HCC) Arthritis Cellulitis of left knee Chronic respiratory failure COPD (chronic obstructive pulmonary disease) ([facility]) Dehydration with hyponatremia Diabetes mellitus ([facility]/HCC) Hyperlipidemia Restrictive lung disease Stroke ([facility]) [place] coma scale total score 13-15, unspecified coma timing Pyelonephritis Kidney infection Acquired absence of leg above knee Stage 3 chronic kidney disease ([facility]/HCC) Type 2 diabetes mellitus with diabetic chronic kidney disease ([facility]/HCC) Peripheral vascular disease, unspecified ([facility]/HCC) Prosthetic joint infection ([facility]/HCC) Unspecified hydronephrosis Vitamin D deficiency, unspecified Disorder [...] BREAST SURGERY N/A Breast Surgery Reconstruction from [facility] BREAST SURGERY N/A Breast Surgery from [facility] CHOLECYSTECTOMY N/A Cholecystotomy from [facility] KIDNEY SURGERY N/A Kidney Surgery from [facility] KNEE SURGERY N/A Knee Surgery from [facility] MASTECTOMY N/A Breast Surgery Mastectomy from [facility] SHOULDER SURGERY Right Shoulder Surgery Right from [...] Description 03/07/2025 10:00 AM EDT Office Visit [place] [facility] [address] [place] [phone] Doug Chapman MD [address] [address] 03/27/2025 10:30 AM EDT Appointment [facility] Ultrasound [address], [address] [place] [address] 03/27/2025 11:50 AM EDT Clinical Support Medical Office Building Lab [address] [place] [address] 03/27/2025 1:00 PM EDT Office Visit Medical Office Building Urology [address] [facility], [address] [place] [address] Cayla Erazo APRN, DNP [address] [address] 05/16/2025 8:00 AM EDT Office Visit [facility] [address] [facility], [address] [place] [address] Karly Gracia MD [address] [place] [address] 06/07/2025 1:00 PM EDT Office Visit [facility] [address] [place] [address] Tom Iraheta MD [address] [place] [address] Scheduled Orders Name Type Priority [...] EDT Hydronephrosis, unspecified hydronephrosis type Urinary retention [place] COMPLEX CYSTOMETROGRAM W/VOID PRESS&URETHRAL PROFILE Routine 12/20/2024 [...] following split bolus administration of IV contrast, [id number], 150 mL. Reformatted images in the coronal [...] MD on 01/03/2025 3:33 PM Cayla Erazo TRAINING AND DEVELOPMENT ASSISTANT, DNP IMG CT PROCEDURES Final Result * Urine Culture - Clinic Collect (12/20/2024 2:33 PM EDT) Culture <10,000 CFU/mL Mixed urogenital, fecal, or skin jesus present. 12/21/2024 2:41 PM EDT [facility] Urine Urine specimen / Unknown Non-blood Collection / Unknown 12/20/2024 2:33 PM EDT 12/20/2024 3:16 PM EDT us Cayla Erazo TRAINING AND DEVELOPMENT ASSISTANT, DNP LAB MICROBIOLOGY - GENER AL ORDERABLES Final Result [facility] [address] [place] [address] * (ABNORMAL) Basic Metabolic Panel, Plasma (12/20/2024 11:54 AM EDT) Glucose, Plasma 226(H) 74 - 99 mg/dL 12/20/2024 1:19 PM EDT [facility] BUN, Plasma 34(H) 8 - 23 mg/dL 12/20/2024 1:19 PM EDT [facility] Creatinine, Plasma 1.82(H) 0.60 - 1.10 mg/dL 12/20/2024 1:19 PM EDT [facility] BUN/Creatinine Ratio 12/20/2024 1:19 PM EDT [facility] Sodium, Plasma 134(L) 136 - 145 mmol/L 12/20/2024 1:19 PM EDT [facility] Potassium, Plasma 4.8 3.6 - 4.9 mmol/L 12/20/2024 1:19 PM EDT [facility] Chloride, Plasma 94(L) 97 - 107 mmol/L 12/20/2024 1:19 PM EDT [facility] CO2, Plasma 28 22 - 29 mmol/L 12/20/2024 1:19 PM EDT [facility] Anion Gap 12 6 - 16 mmol/L 12/20/2024 1:19 PM EDT [facility] Total Calcium, Plasma 10.0 8.9 - 10.2 mg/dL 12/20/2024 1:19 PM EDT [facility] eGFRcr 30.5 mL/min/1.7 3m*2 12/20/2024 1:19 PM EDT [facility] Comment:Reported eGFRcr in m L/min/1.73m2 is based the CKD-EPI 2020 equation that does not use a race coefficient. Blood Venous blood specimen / Unknown Venipuncture / Unknown 12/20/2024 11:54 AM EDT 12/20/2024 11:55 AM EDT Cayla Erazo APRN, DNP LAB BLOOD ORDERABLES Andi al Result [facility] [address] [place] [address] * INJECTION FOR BLADDER XRAY WITHOUT VOIDING, [place] COMPLEX CYSTOMETROGRAM W/VOID PRESS&URETHRAL PROFILE, UROLOGY UDS WITH BASE PERFORMABLE CHARGES (12/20/2024 10:28 AM EDT) Narrative Cayla Erazo APRN, DNP - 12/20/2024 10:28 AM EDT Cayla Erazo APRN, DNP 01/04/2025 2:40 PM UDS Date/Time: 12/20/2024 10:28 AM Performed by: Cayla Erazo APRN, DNP Authorized by: Cayla Erazo APRN, DNP [place] Protocol: Time out called at: 12/20/2024 10:28 [...] 1034, Until Hermel[place] 12/20/24 at 1034, Routine, IntraprocedureIndications:[place] nephrosis, unspecified hydronephrosis type,Urinary retention Given by [...] documented as of this encounter Care Teams Home Fire Alarm Installer Relationship Specialty Start Date End Date Daniel Barba MD [address] [place] [address] PCP - General 01/02/21 12/30/24 Vignesh Pickens MD [address] [place] [address] PCP - General 12/31/24 Cayla Erazo APRN, DNP [address] [place] [phone] Nurse Practitioner Urology 12/20/24 documented as of this encounter
--- OUTSIDE RECORDS SUMMARY | 2024-12-31 14:01 | XMS_ITS | Encounter Summary ---
Author Organization [facility] Address [address] [place] [address] Care Team Providers Care Vocational School Teacher Name Role Phone Cayla Erazo APRN, FREDERICK Unavailable Vignesh Pickens MD Primary Care Provider [phone] Reason for Referral * Imaging (Routine) - Closed Specialty Diagnoses / Procedures Referred By Contac t Referred To Contact Cardiology Diagnoses Coronary artery disease involving southern ute heart without angina pectoris, unspecified vessel or lesion type S/P AKA (above knee amputation) bilateral (CMS/HCC) Acute left arterial ischemic stroke, ICA (internal carotid artery) (CMS/HCC) Procedures VAS US Carotid Duplex Bilateral Stent Karly Gracia MD [address] [place] [address] Phone: tel: fax: Referral ID Status Reason Start Date Expiration Date V isits Requested Visits Authorized [id number] Closed Perform Procedure 11/08/2024 05/10/2026 1 1 Reason for Visit * Imaging (Routine) - Closed Specialty Diagnoses / Procedures Referred By Contac t Referred To Contact Cardiology Diagnoses Coronary artery disease involving southern ute heart without angina pectoris, unspecified vessel or lesion type S/P AKA (above knee amputation) bilateral (CMS/HCC) Acute left arterial ischemic stroke, ICA (internal carotid artery) (CMS/HCC) Procedures VAS US Carotid Duplex Bilateral Stent Karly Gracia MD [address] [place] [address] Phone: tel: fax: Referral ID Status Reason Start Date Expiration Date V isits Requested Visits Authorized [id number] Closed Perform Procedure 11/08/2024 05/10/2026 1 1 Encounter Details Date Type Department Care Team (Latest Contact Info) Description 12/31/2024 2:01 PM EDT - 12/31/2024 11:59 PM EDT Hospital Encounter [facility] Vascular Lab [address] [facility] 5th Floor [address], [address] [place] [address] Coronary artery disease involving southern ute heart without angina pectoris, unspecified vessel or lesion type; S/P AKA (above knee amputation) bilateral ([facility]); Acute left arterial ischemic stroke, ICA (internal carotid artery) ([facility]) Discharge Disposition: Home or Self Care Social [...] any time in the past 12 m [facility], were you homeless or living in a skilled nursing (including now)? No 08/20/2024 CAGE ASSESSMENT Answer [...] drink first t rodríguez in the morning (EYE-PROBATE CLERK) to steady your nerves or to get rid of a hangover? 0 08/15/2024 CAGE Questionnaire Score 0 024 Utilities Answer Date Recorded In the past 12 months has th e [employer], gas, oil, or water [employer] threatened to shut off services in your [...] Description 03/07/2025 10:00 AM EDT Office Visit [facility] Urology [address], [address]nd [place] [address] Doug Chapman MD [address] [address] 03/27/2025 10:30 AM EDT Appointment [facility] Ultrasound [address], [address]nd [place] [address] 03/27/2025 11:50 AM EDT Clinical Support Medical [facility] Building Lab [address] [place] [address] 03/27/2025 1:00 PM EDT Office Visit Medical Office Building Urology [address] [facility], [address] [place] [address] Cayla Erazo, HOUSE MANAGER, DNP [address] [place] [address] 05/16/2025 8:00 AM EDT Office Visit [facility] [place] [address] [facility], [address] [place] [address] Karly Gracia MD [address] [place] [address] 06/07/2025 1:00 PM EDT Office Visit [place] [address] [facility] [address] [address] Tom Iraheta MD [address] [place] [address] documented as of this encounter Procedures Procedure Name Priority Date/Time Associated Diagnosis Comments VAS US CAROTID DUPLEX BILATERAL Routine 12/31/2024 2:27 PM EDT Coronary artery disease involving southern ute heart without angina pectoris, unspecified vessel or lesion type S/P AKA (above knee amputation) bilateral (CMS/HCC) Acute left arterial ischemic stroke, ICA (internal carotid artery) ([facility]) documented in this encounter Results * VAS [...] Visit Diagnoses Diagnosis Coronary artery disease involving southern ute heart without angina pectoris, unspecified vessel or [...] documented as of this encounter Care Teams Vocational School Teacher Relationship Specialty Start Date End Date Vignesh Pickens MD [address] [place] [address] PCP - General 12/31/24 Cayla Erazo, LIZANDRO, DNP [address] [place] [address] Nurse Practitioner Urology 12/20/24 documented as of this encounter
--- OUTSIDE RECORDS SUMMARY | 2024-12-31 14:01 | XMS_ITS | Encounter Summary ---
Author Organization [facility] Address [address] [place] [id number] Care Team Providers Care Plating Technician Name Role Phone Cayla Erazo APRN, DNP Unavailable [phone] Vignesh Pickens MD Primary Care Provider [phone] Reason for Referral * Imaging (Routine) - Closed Specialty Diagnoses / Procedures Referred By Clara t Referred To Contact Cardiology Diagnoses S/P AKA (above knee amputation) bilateral (CMS/HCC) Encounter for surgical aftercare following surgery on the circulatory system Procedures VAS Ankle Brachial Index - Segmental Karly Gracia MD [address] [place] [address] Phone: tel: fax: Referral ID Status Reason Start Date Expiration Date V isits Requested Visits Authorized [id number] Closed Perform Procedure 11/08/2024 05/10/2026 1 1 Reason for Visit * Imaging (Routine) - Closed Specialty Diagnoses / Procedures Referred By Clara stoner Referred To Contact Cardiology Diagnoses S/P AKA (above knee amputation) bilateral (CMS/HCC) Encounter for surgical aftercare following surgery on the circulatory system Procedures VAS Ankle Brachial Index - Segmental Karly Gracia MD [address] [place] [address] Phone: tel: fax: Referral ID Status Reason Start Date Expiration Date V isits Requested Visits Authorized [id number] Closed Perform Procedure 11/08/2024 05/10/2026 1 1 Encounter Details Date Type Department Care Team (Latest Contact Info) Description 12/31/2024 2:01 PM EDT - 12/31/2024 11:59 PM EDT Hospital Encounter [facility] Vascular Lab [address] 5th Floor [address], [address] [place] [address] S/P AKA (above knee amputation) bilateral (CMS/HCC); Encounter for surgical aftercare following surgery on the circulatory system Discharge Disposition: Home or Self Care Social [...] any time in the past 12 m [facility], were you homeless or living in a longterm (including now)? No 08/20/2024 CAGE ASSESSMENT Answer [...] drink first t rodríguez in the morning (EYE-INSPECTOR FILTERS) to steady your nerves or to get rid of a hangover? 0 08/15/2024 CAGE Questionnaire Score 0 024 Utilities Answer Date Recorded In the past 12 months has th e electric, gas, oil, or water company threatened to shut off services in your [...] Description 03/07/2025 10:00 AM EDT Office Visit [facility] Urology [address], [address]nd [place] [address] Doug Chapman MD [address] [facility] [address] [place] [address] 03/27/2025 10:30 AM EDT Appointment [facility] Ultrasound [address] [place] [address] 03/27/2025 11:50 AM EDT Clinical Support Medical Office Building Lab [address] [place] [address] 03/27/2025 1:00 PM EDT Office Visit Medical Office Building Urology [address] [facility], [address] [place] [address] Cayla Erazo, WATER CARTER, DNP [id number] [place] [address] 05/16/2025 8:00 AM EDT Office Visit [facility] [place] [address] [facility], [address] [place] [address] Karly Gracia MD [address] [place] [address] 06/07/2025 1:00 PM EDT Office Visit [facility] [address] [place] [address] Tom Iraheta MD [address] [place] [address] documented as of this encounter Procedures Procedure Name Priority Date/Time Associated Diagnosis Comments VAS ANKLE BRACHIAL INDEX - SEGMENTAL Routine 12/31/2024 2:30 PM EDT S/P AKA (above knee amputation) bilateral (CMS/HCC) Encounter for surgical aftercare following surgery on the circulatory system documented in this encounter Results * VAS Ankle Brachial Index - Segmental (12/31/2024 2:30 PM EDT) Anatomical Region Laterality Modality Vascular Ultrasound Impressions 01/01/2025 7:09 AM EDT Right: Normal study; No evidence of hemodynamically significant arterial disease at rest. COMMUNICATION: Per this written report. Preliminary report signed by WINDY Max on 12/31/2024 2:58 PM By electronically signing this report, I, the attending physician, attest that I have personally reviewed the images/data for the above examination(s) and I agree with the final edited report. Drafted by WINDY Max on 12/31/2024 2:56 PM Final report signed by Jennifer Parkinson MD on 01/01/2025 7:09 AM Narrative 01/01/2025 7:09 AM EDT CLINICAL INDICATION: b/l AKA, requested by vascular team TECHNIQUE: Non-invasive, continuous wave Doppler exam with segmental pressures and spectral analysis of the lower extremity was performed. COMPARISON: None. FINDINGS: Right: Multiphasic waveforms are demonstrated at the levels of the SOCIAL SERVICE LIAISON, LINE MAINTAINER and DPA. Segmental pressures are within normal limits with a LINE MAINTAINER JASEN of 0.98 (138 mmHg) and a DPA JASEN of 1.28 (181 mmHg). Digit pressures are 115 mmHg. Left: AKA is noted. Multiphasic waveforms are demonstrated at the level of the SOCIAL SERVICE LIAISON. 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 COMPARISON: None. FINDINGS: Right: Multiphasic waveforms are demonstrated at the levels of the SOCIAL SERVICE LIAISON,LINE MAINTAINER and DPA. Segmental pressures are within normal limits with a LINE MAINTAINER ABIof 0.98 (138 mmHg) and a DPA JASEN of 1.28 (181 mmHg). Digit pressures uap221 mmHg. Left: AKA is noted. Multiphasic waveforms are demonstrated at the level ofthe SOCIAL SERVICE LIAISON. IMPRESSION: Right: Normal study; No evidence of hemodynamically significant arterialdisease at rest. COMMUNICATION: Per this written report. Preliminary report signed by WINDY Max on 12/31/2024 2:58 PM By electronically signing this report, I, the attending physician, attmosesthat I have personally reviewed the images/data for the aboveexamination(s) and I agree with the final edited report. Drafted by WINDY Max on 12/31/2024 2:56 PM Final report signed by Jennifer Parkinson MD on 01/01/2025 7:09 AM Karly Gracia MD CV VASCULAR PROCEDURES Final Result documented in this encounter Visit Diagnoses Diagnosis S/P AKA (above knee amputation) bilateral (CMS/HCC) Lower limb amputation, above knee Encounter for surgical aftercare following surgery on the circulatory system documented in this encounter Additional Health Concerns [...] documented as of this encounter Care Teams Plating Technician Relationship Specialty Start Date End Date Vignesh Pickens MD [address] [place] [address] PCP - General 12/31/24 Cayla Erazo APRN, DNP [address] [facility] [address] [place] [address] Nurse Practitioner Urology 12/20/24 documented as of this encounter
--- OUTSIDE RECORDS SUMMARY | 2024-12-31 16:00 | XMS_ITS | Encounter Summary ---
Author Organization [facility] Address [address] [place] [address] Care Team Providers Care Valve Technician Name Role Phone Cayla Erazo APRN, DNP Unavailable [phone] Vignesh Pickens MD Primary Care Provider [phone] Reason for Referral * Imaging (Routine) - Pending Review Specialty Diagnoses / Procedures Referred By Contac t Referred To Contact Cardiology Diagnoses Asymptomatic bilateral carotid artery stenosis Procedures VAS US Carotid Duplex Bilateral Stent Ro Montaño PA [address] [place] [address] Phone: tel: fax: Referral ID Status Reason Start Date Expiration Date Visits Requested Visits Authorized [id number] Pending Review Perform Procedure 12/31/2024 07/02/2026 1 1 Reason for Visit * Reason Comments Coronary artery disease involving [place] heart without gertrude S/P AKA (above knee amputation) bilatera l Acute left arterial ischemic stroke, ICA (internal carotid * Consultation (Urgent) - Closed Specialty Diagnoses / Procedures Referred By Contact Referred To Contact Vascular Surgery / [facility] Diagnoses Coronary artery disease involving [place] heart without angina pectoris, unspecified vessel or lesion type Karly Gracia MD [address] [place] [address] Phone: tel:[phone] fax:[phone] [facility] [address] [place] [address] Phone: tel: fax: Referral ID Status Reason Start Date Expiration Date V isits Requested Visits Authorized [id number] Closed Specialty Services Required 11/05/2024 05/07/2026 1 1 Encounter Details Date Type Department Care Team (Latest Contact Info) Description 12/31/2024 4:00 PM EDT Office Visit [facility] [address] [place] [address] Bert Canela MD [address] [facility] [address] [place] [address] Asymptomatic bilateral carotid artery stenosis (Primary Dx); PVD (peripheral vascular disease) ([facility]); Hx of AKA (above knee amputation), left ([facility]); History of stroke; Type 2 diabetes mellitus without complication, unspecified whether exterminator termite insulin use Social History Tobacco Use Types [...] time in the past 12 m [facility], were you homeless or living in a senior living (including now)? No 08/20/2024 CAGE ASSESSMENT Answer [...] drink first t rodríguez in the morning (EYE-MORTGAGE LOAN PROCESSING CLERK) to steady your nerves or to [...] encounter Miscellaneous Notes * Progress Notes - oR Montaño PA - 12/31/2024 4:00 PM EDT [...] Hx of AKA (above knee amputation), left ([facility]) 12/31/2024 PVD (peripheral vascular disease) ([facility]) 12/31/2024 Asymptomatic bilateral carotid artery stenosis 12/31/2024 Other specified cardiac arrhythmias 11/05/2024 Cerebral infarction due to unspecified occlusion or stenosis of left carotid arteries ([facility]) 11/05/2024 Hypertensive chronic kidney disease with stage 1 through stage 4 chronic kidney disease, or unspecified chronic kidney disease 10/12/2024 Urinary incontinence without sensory awareness 10/12/2024 Anemia in chronic kidney disease 10/12/2024 Chronic kidney disease, stage 3a ([facility]) 10/12/2024 Urinary retention 09/26/2024 Recurrent [...] kidney disease, or unspecified chronic kidney disease ([facility]) 08/21/2024 Glycosuria 08/20/2024 Type 2 diabetes mellitus with diabetic chronic kidney disease ([facility]) 08/19/2024 Other nonspecific abnormal finding of lung field 08/19/2024 Stage 3 chronic kidney disease ([facility]) 08/17/2024 Hydronephrosis with renal and ureteral calculous obstruction 08/17/2024 Kidney infection 08/16/2024 Dave coma scale total score 13-15, unspecified coma timing 08/15/2024 Pyelonephritis 08/15/2024 Unspecified abdominal pain 08/15/2024 Old myocardial infarction 08/15/2024 Calculus of kidney 08/15/2024 Fecal impaction ([facility]) 08/14/2024 Constipation, unspecified 08/14/2024 Headache, unspecified 08/14/2024 Nontoxic single thyroid nodule 07/10/2024 Edema, unspecified 07/02/2024 Tinea unguium 06/07/2024 Pain in right toe(s) 06/07/2024 Pain in left toe(s) 06/07/2024 Disorder of kidney and ureter, unspecified 04/25/2024 Secondary hyperparathyroidism of renal origin ([facility]) 04/09/2024 Dysuria 04/09/2024 Adult failure to thrive 04/02/2024 Vitamin D deficiency, unspecified 12/21/2023 Acquired absence of leg above knee 12/13/2023 Peripheral vascular disease, unspecified ([facility]) 12/13/2023 Weakness 12/13/2023 Unspecified right bundle-branch block 12/09/2023 Other acute postprocedural pain 12/09/2023 Mixed simple and mucopurulent chronic bronchitis ([facility]) 12/05/2023 Other specified disorders of the skin and subcutaneous tissue 11/29/2023 Morbid (severe) obesity due to excess calories ([facility]) 10/31/2023 Atrial premature depolarization 10/08/2023 Hyperkalemia 10/05/2023 Hemiplegia and hemiparesis following cerebral infarction affecting left non- dominant side ([facility])10/04/2023 Dyspnea, unspecified 10/04/2023 Chronic diastolic (congestive) heart failure ([facility]) 10/04/2023 Presence of left artificial knee joint 09/27/2023 Acute kidney injury superimposed on CKD ([facility]) 01/04/2023 Arthritis 01/04/2023 Cellulitis of left knee 01/04/2023 Chronic respiratory failure 01/04/2023 COPD (chronic obstructive pulmonary disease) ([facility]) 01/04/2023 Dehydration with hyponatremia 01/04/2023 Diabetes mellitus ([facility]) 01/04/2023 Hyperlipidemia 01/04/2023 Restrictive lung disease 01/04/2023 Stroke ([facility]) 01/04/2023 Second hand smoke exposure 10/04/2022 Iron deficiency anemia 03/01/2022 Hypotension 06/03/2017 GERD without esophagitis 03/28/2017 CAD (coronary artery disease), [place] coronary artery 03/28/2017 Controlled diabetes mellitus type [...] amputation), left (CMS/HCC) PVD (peripheral vascular disease) ([facility]) Asymptomatic bilateral carotid artery stenosis [...] Description 03/07/2025 10:00 AM EDT Office Visit [facility] [address] [place] [address] Doug Chapman MD [address] [facility] [address] [place] [address] 03/27/2025 10:30 AM EDT Appointment [facility] Ultrasound [address], [address]nd [place] [address] 03/27/2025 11:50 AM EDT Clinical Support Medical Office Building Lab [address] [place] [address] 03/27/2025 1:00 PM EDT Office Visit [facility] Urology [address] [facility], [address] [place] [address] Cayla Erazo, SALES DESIGNER, DNP [address] [facility] [address] [place] [address] 05/16/2025 8:00 AM EDT Office Visit [facility] [place] [address] [facility], [address] [place] [address] Karly Gracia MD [address] [place] [address] 06/07/2025 1:00 PM EDT Office Visit [facility] [address] [place] [address] Tom Iraheta MD [address] [place] [address] Scheduled Orders Name Type Priority [...] 2 diabetes mellitus without complication, unspecified whether exterminator termite insulin use documented in this encounter Additional [...] documented as of this encounter Care Teams Valve Technician Relationship Specialty Start Date End Date Vignesh Pickens MD [address] [place] [address] PCP - General 12/31/24 Cayla Erazo APRN, FREDERICK [address] [facility] [address] [place] [address] Nurse Practitioner Urology 12/20/24 documented as of this encounter
--- OUTSIDE RECORDS SUMMARY | 2025-01-03 14:15 | XMS_ITS | Encounter Summary ---
Author Organization [facility] Address [address] [place] [address] Care Team Providers Care Intelligence Operations Specialist Name Role Phone Cayla Erazo APRN, DNP Unavailable [phone] Vignesh Pickens MD Primary Care Provider [phone] Reason for Referral * Imaging (Routine) - Closed Specialty Diagnoses / Procedures Referred By Clara stoner Referred To Contact Radiology Diagnoses Gross hematuria Procedures CT Urogram Cayla Erazo APRN, DNP [address] [address] Phone: tel: fax: Referral ID Status Reason Start Date Expiration Date Visits Re quested Visits Authorized [id number] Closed 12/25/2024 06/26/2026 1 1 Reason for Visit * Imaging (Routine) - Closed Specialty Diagnoses / Procedures Referred By Clara stoner Referred To Contact Radiology Diagnoses Gross hematuria Procedures CT Urogram Cayla Erazo APRN, DNP [address] [address] Phone: tel: fax: Referral ID Status Reason Start Date Expiration Date Visits Re quested Visits Authorized [id number] Closed 12/25/2024 06/26/2026 1 1 Encounter Details Date Type Department Care Team (Latest Contact Info) Description 01/03/2025 2:15 PM EDT - 01/03/2025 11:59 PM EDT Hospital Encounter [facility] CT [address] [place] [address] Gross hematuria Discharge Disposition: Home or Self [...] any time in the past 12 m [facility], were you homeless or living in [...] drink first t rodríguez in the morning (EYE-ELECTRONICS ENGINEER) to steady your nerves or to get rid of a hangover? 0 08/15/2024 CAGE Questionnaire Score 0 024 Utilities Answer Date Recorded In the past 12 months has th e [employer], gas, oil, or water [employer] threatened to shut off services in your [...] Description 03/07/2025 10:00 AM EDT Office Visit [facility] Urology [address], [address] Floor [place] [phone] Doug Chapman MD [address] [place] [address] 03/27/2025 10:30 AM EDT Appointment [facility] Ultrasound [address] [place] [address] 03/27/2025 11:50 AM EDT Clinical Support Medical Office Building Lab [address] [place] [address] 03/27/2025 1:00 PM EDT Office Visit Medical Office Building Urology [address] [facility], [address] [place] [address] Cayla Erazo APRN, FREDERICK [address] [facility] [address] [place] [address] 05/16/2025 8:00 AM EDT Office Visit [facility] [place] [address] [facility], [address] [place] [address] Karly Gracia MD [address] [place] [address] 06/07/2025 1:00 PM EDT Office Visit [facility] [address] [place] [address] Tom Iraheta MD [address] [place] [address] documented as of this encounter [...] following split bolus administration of IV contrast, [id number], 150 mL. Reformatted images in the coronal [...] MD on 01/03/2025 3:33 PM Cayla Erazo CONTACT WORKER, [facility] [place]) IMG CT PROCEDURES Final Result documented in [...] documented as of this encounter Care Teams Intelligence Operations Specialist Relationship Specialty Start Date End Date Vignesh Pickens MD [address] [place] [address] PCP - General 12/31/24 Cayla Erazo APRN, FREDERICK [id number] [place] [address] Nurse Practitioner Urology 12/20/24 documented as of this encounter
--- OUTSIDE RECORDS SUMMARY | 2025-01-24 14:00 | XMS_ITS | Encounter Summary ---
Author Organization [facility] Address [address] [place] [address] Care Team Providers Care Iron Installer Name Role Phone Cayla Erazo APRN, DNP Unavailable [phone] Vignesh Pickens MD Primary Care Provider [phone] Encounter Details Date Type Department Care Team (Late st Contact Info) Description 01/24/2025 2:00 PM EDT Pre-Admission Testing [facility] Pre-op Clinic [address] [place] [address] Social History Tobacco Use Types Packs/Day Years [...] time in the past 12 m [facility], were you homeless or living in a prison (including now)? No 08/20/2024 CAGE ASSESSMENT Answer [...] drink first t rodríguez in the morning (EYE-BRAILLE AND TALKING BOOKS CLERK) to steady your nerves or to [...] mouth wide, with pt.'s nurse Gabriela at [facility], via phone. . Cardiovascular: CAD (s/p cardiac stents (2018).), carotid artery disease (asymptomatic Bilat. CHAVA. s/p left ICA stent (2013).), CHF (chronic diastolic CHF.), dysrhythmias (Hx RBBB.), hyperlipidemia, past AR and PVD.Does not have angina, atrial fibrillation, [...] - CAD s/p PCI in 2017 in [facility] (records requested), ICM with LVEF 40-45% [...] Musculoskeletal: arthritis. Does not have multiple sclerosis. [facility] additional comments: Hx Left AKA in 11/2023 [...] INR 2.5 to 3.5 Prevention of recurrent AR INR 2.5 to 3.5 INR 03/06/2014 1.0 (NOTE) OPTIMAL INR RANGES FOR PATIENT ON ORAL ANTICOAGULANT THERAPY Prevention of venous thromboembolism INR 2.0 to 3.0 In patients with heart disease: Atrial fibrillation INR 2.0 to 3.0 Valvular heart disease INR 2.0 to 3.0 Tissue heart valves INR 2.0 to 3.0 Mechanical prosthetic valves INR 2.5 to 3.5 Prevention of recurrent AR INR 2.5 to 3.5 INR 03/05/2014 1.0 (NOTE) OPTIMAL INR RANGES FOR PATIENT ON ORAL ANTICOAGULANT THERAPY Prevention of venous thromboembolism INR 2.0 to 3.0 In patients with heart disease: Atrial fibrillation INR 2.0 to 3.0 Valvular heart disease INR 2.0 to 3.0 Tissue heart valves INR 2.0 to 3.0 Mechanical prosthetic valves INR 2.5 to 3.5 Prevention of recurrent AR INR 2.5 to 3.5 Visit Vitals Wt [...] RE: holding Plavix and Xarelto. Pearl Chopra, MINING ANALYST [1] Past 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: Diagnosis Date Anxiety [...] BREAST SURGERY N/A Breast Surgery Reconstruction from [facility] BREAST SURGERY N/A Breast Surgery from [facility] CHOLECYSTECTOMY N/A Cholecystotomy from [facility] KIDNEY SURGERY N/A Kidney Surgery from [facility] KNEE SURGERY N/A Knee Surgery from [facility] MASTECTOMY N/A Breast Surgery Mastectomy from [facility] SHOULDER SURGERY Right Shoulder Surgery Right from [facility] [5] Allergies Allergen Reactions Sulfa Drugs Anaphylaxis Ultram [Tramadol] Swelling lips swell Hydrocodone Unknown - Patient states they do not know rxn details [facility] is unaware of what reaction. Pedi-Pre Tape [place] [Wound Dressing Adhesive] Rash Wellbutrin [Bupropion] Rash [...] card, photo ID, along with power of securities attorney, guardianship or advanced directives if applicable Do [...] Description 03/07/2025 10:00 AM EDT Office Visit [facility] Urology [address] [place] [address] Doug Chapman MD [address] [place] [address] 03/27/2025 10:[address] [facility] Ultrasound [address] [place] [address] 03/27/2025 11:50 AM EDT Clinical Support Medical Office Building Lab [facility] [place] [id number] 03/27/2025 1:00 PM EDT Office Visit Medical Office Building Urology [address], [address] [place] [address] Cayla Erazo APRN, DNP [address] [place] [address] 05/16/2025 8:00 AM EDT Office Visit [facility] [place] [address], [address] [place] [address] Karly Gracia MD [address] [place] [address] 06/07/2025 1:00 PM EDT Office Visit [facility] [address] [place] [address] Tom Iraheta MD [address] [place] [address] documented as of this encounter Goals Goal Patient Goal Type Associated Problems Recent Progress Patient-Stated? Author Autogenerat ed Goal Care Plan Autogenerated Problem Eugenia So documented as of this encounter Visit Diagnoses Not on filedocumented in this encounter Additional Health Concerns Active Problems Noted Date Diagnosed Date Autogenerated Problem 01/16/2025 Infection Onset Date Last Indicated 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/26/2024 Assessment Noted Time PHQ-9 Depression Total Score: 13 025 10:12 AM EST A fall risk assessment has been complete d for the patient 12/31/2024 3:03 PM EDT A Body Mass Index follow-up plan has been documented for the patient 01/07/2025 9:57 AM EDT documented as of this encounter Care Teams Iron Installer Relationship Specialty Start Date End Date Vignesh Pickens MD [address] [place] [address] PCP - General 12/31/24 Cayla Erazo APRN, DNP [address] [place] [address] Nurse Practitioner Urology 12/20/24 documented as of this encounter
--- OUTSIDE RECORDS SUMMARY | 2025-01-31 08:03 | XMS_ITS | Encounter Summary ---
Author Organization [facility] Address [address] [place] [address] Care Team Providers Care Road Test Examiner Name Role Phone Cayla Erazo APRN, DNP Unavailable [phone] Vignesh Pickens MD Primary Care Provider [phone] Reason for Visit * Auth/Cert (Routine) Specialty Diagnoses / Procedures Referred By Contac t Referred To Contact Diagnoses Gross hematuria Gross hematuria Procedures NV CYSTO/URETERO/PYELOSC,BX &/OR FULG LESN URETEROSCOPY, WITH BIOPSY POSSIBLE STENT PLACEMENTS Ceci Mitchell MD [address] [address] Phone: tel: fax: [facility] [address] [place] [address] Phone: tel: Referral ID Status Reason Start Date Expiration Date Visits Re quested Visits Authorized [id number] 1 1 Encounter Details Date Type Department Care Team (Latest Contact Info) Description 01/31/2025 8:03 AM EDT - 01/31/2025 1:39 PM EDT Hospital Encounter [facility] [address] [place] [id number] Ceci Mitchell MD [address] [address] Urinary retention (Primary Dx); Gross hematuria Discharge Disposition: Home or Self [...] any time in the past 12 m [facility], were you homeless or living [...] drink first t rodríguez in the morning ([employer]ATION [employer]OCIATE) to steady your nerves or to get rid of a hangover? 0 08/15/2024 CAGE Questionnaire Score 0 024 Utilities Answer Date Recorded In the past 12 [address] has e [employer], gas, oil, or water company threatened to [...] Sign Reading Time Taken Comments Blood Pressure 113/74 01/31/2025 1:00 PM EDT Pulse 81 01/31/2025 1:00 PM EDT Temperature 36.9 C (98.4 F) 01/31/2025 1:00 PM EDT Respiratory Rate 23 01/31/2025 1:00 PM EDT Oxygen Saturation 93% 01/31/2025 1:00 PM EDT Inhaled Oxygen Concentration - - Weight - - Height - - Body Mass Index - - documented in this encounter Functional Status * Calculated C-SSRS Risk Score (Lifetime/Recent) Answer Date of Assessment Author No Risk Indicated 01/31/2025 8:50 AM EDT Jovita Orosco RN * Question Answer Date of Assessment Author 1. Wish to be (Past 1 Month) No 025 8:50 AM EDT Jovita Orosco, RN 2. Non-Specific Active Suici annie Thoughts (Past 1 Month) No 01/31/2025 8:50 AM EDT Jovita Orosco RN 6. Suicidal Behavior (Lifetime) No 8:50 AM EDT Jovita Orosco, RN documented as of this encounter Discharge Instructions * Discharge Instructions* Gerry Cullen DO - 01/31/2025 11:14 AM EDT Remove garcía catheter with strings and stents attached on Tuesday02/04/25 Precautions: - You have received sedation/anesthesia today. You may not drive, drink alcohol, or do anything that requires a clear head for the next 24 hours. Medications: - You should increase the dose of your myrbetriq to 50 mg daily - You should take Diflucan for the next two weeks. - You may take 500mg Tylenol every 6 hours for mild - moderate pain. You may take up to 1000mg every 6 hours but do not take more than 4000mg in a day. - You may also take 600mg ibuprofen (if you normally are able to) every 6 hours for mild-moderate pain. - You may resume your previous medications unless otherwise instructed. Nutrition: - You may resume your normal diet as tolerated, focusing on liquids to keep yourself hydrated. Activity: - Avoid strenuous activity while garcía catheter is in place that may risk accidental tugging on thecatheter - You may resume normal physical activity as tolerated - You may not drive for 24 hours after surgery Potential Issues: - It is normal to have some mild bladder, abdominal, or flank discomfort as well as some urinary frequency and discomfort with voiding - Call the office if you have a fever greater than 101 F - Call the office if you have severe abdominal discomfort, nausea and vomiting, or feeling unwell Follow Up: - You will be contacted by the clinic for a follow up appointment in approximately 2 months. Questions or Concerns and Appointments (physicians work at both clinics so confirm your location ahead of your appointment) [facility] Urology Department Clinic at [facility] [address], [facility], [address] [place] [address] Clinic After Hours [facility] Office Building U[facility] Clinic [facility] [address] [place] [address] Clinic After Hours documented in this encounter Medications at Time of Discharge [...] by mouth 2 times a day. mirabegron ER (Myrbetriq) 25 MG tablet Take 2 tablets by mouth every morning. 60 tablet 11 01/31/2025 6 multivitamin (Theragran-M) tablet Take 1 tablet by [...] a day. 60 tablet 11 09/26/2024 6 Vibegron 75 MG tablet Take 75 mg by mouth daily. Take one pill by mouth daily. 30 tablet 11 12/20/2024 6 fluconazole (Diflucan) 100 MG tabletIndication s:Urinary retention Take 1 tablet by mouth daily for 14 days. 14 tablet 01/31/2025 5 documented as of this encounter Miscellaneous Notes * Anesthesia PACU Signout - Koffi Beltran MD - 01/31/2025 1:29 PM EDT Patient: Eileen Tovar Anesthesia Type: general Vitals Value Taken Time BP 113/74 01/31/25 13:00 Temp 36.9 ??C (98.4 ??F) 01/31/25 13:00 Pulse 85 01/31/25 13:02 Resp 15 01/31/25 13:02 SpO2 93 % 01/31/25 13:00 Vitals shown include unfiled device data. Anesthesia PACU Signout Patient location during evaluation: PACU Patient participation: complete - patient participated Level of consciousness: baseline and awake Pain management: adequate (pain score 0-3) Airway patency: natural airway Hydration status: acceptable PONV: none Cardiovascular status: acceptable and hemodynamically stable Respiratory status: acceptable, spontaneous ventilation, unassisted and nonlabored ventilation Discharge Disposition: home Cosigned by Michaela Paige MD at 01/31/2025 2:22 PM EDT Associated attestation - Michaela Paige MD - 01/31/2025 2:22 PM EDT I saw and evaluated the patient with the resident/fellow. I discussed the case with the resident/fellow and agree with the findings and plan as documented. * Op Note - Gerry Cullen DO - 01/31/2025 10:14 AM EDT PATIENT NAME: Eileen Tovar : 1960 DATE OF SURGERY: 01/31/25 PROCEDURES PERFORMED: - Cystoscopy with bilateral retrograde pyelogram - Bilateral ureteral stent placement PREOPERATIVE DIAGNOSIS: Neurogenic bladder, hematuria POSTOPERATIVE DIAGNOSIS: Same SURGEON: Ceci Mitchell MD ALTERNATIVE ENERGY ENGINEER SURGEON(S): Gerry Cullen DO, Doug Lundy MD INTRAOPERATIVE FINDINGS: - The bladder was small-volume with friable mucosa throughout but no masses or lesions - Right retrograde pyelogram demonstrated moderate hydronephrosis but no obvious filling defect. There was return of significant white debris after wire placement. - Left retrograde pyelogram demonstrated moderate hydronephrosis. - Some contrast was retained in both kidneys and ureters after several minutes. - Due to instrumentation we elected to leave stents on strings bilaterally and a garcía cathter INDICATIONS: 64 year old female who follows in the urology clinic for bilateral hydronephrosis and neurogenic bladder. UDS on 12/20 showed poor compliance and immediate VUR on the left. She underwent a CTU due to gross hematuria, which demonstrated bilateral hydronephrosis down to the bladder with extensive filling defects in the bilaterall collecting systems, ureters, and bladder. After discussion of her options, she elected to proceed with cystoscopy and bilateral diagnostic ureteroscopy with possible biopsy, fulguration, and ureteral stent placement. ANESTHESIA: General COMPLICATIONS: None DRAINS: 18 fr garcía catheter Bilateral 7 fr x 24 cm ureteral stents with strings SPECIMEN: Bladder/kidney urine for culture Bladder/kidney urine for fungal culture EBL: Minimal PROCEDURE IN DETAIL: After informed consent was obtained, the patient was brought into the surgical suite. The patient was placed in supine position and general anesthesia was administered. The patient was then placed inthe dorsal lithotomy position. They were then prepped and draped in the usual and sterile fashion. A preoperative timeout was performed verifying the correct patient, procedure, and administration ofpreoperative antibiotics prior to the start of the case. A 19 Ethiopian rigid cystoscope was introduced into the patient's urethral meatus and into the bladder. The bladder had some urine with sediment in it which was drained and sent for culture. The bladdermucosa throughout was extremely friable into the beginning of the case there were already several small rents in the mucosa. Began by cannulating the right ureteral orifice with a sensor wire, which was advanced under fluoroscopy up to the level of the renal pelvis. We advanced a [place] catheter over our sensor wire and performed a retrograde pyelogram, which demonstrated a dilated right renal pelvis with dilated ureterdown to the level of the bladder. There were no significant filling defects. We did, however, see significant efflux of white debris after we had placed our wire. We then turned our attention to the left side. We attempted to place a wire into the left ureteral orifice, but it was somewhat difficult to identify where this was. We are eventually able to place awire into the orifice with the assistance of a Berenstein catheter, and advanced a wire up to the level of the renal pelvis. We again performed a retrograde pyelogram, which demonstrated moderate left hydronephrosis and hydroureter down to the level of the bladder, but no significant filling defects. We observed contrast drainage from both kidneys into the bladder, though there was some residual contrast bilaterally that did not quickly drain. Because of the whitish debris and our instrumentation, we elected to leave stents bilaterally with strings. Used 7 Ethiopian by 24 cm double-J stents on strings. These were placed without difficulty and intraoperative fluoroscopy was used to confirm appropriate positioning with the proximal curls in the renal pelvises bilaterally in the distal curls in the bladder. An 18 Ethiopian García catheter was placed at the conclusion of the case in his stent strings were tied to the catheter. The patient tolerated the procedure well. POSTOPERATIVE PLAN: -The patient will be taken to PACU for recovery and be discharged home today. - remove catheter and stents at home on 02/04/2025 - Follow up as scheduled with Cayla Cullen DO PGY-3, Department of Urology Pager: [phone] Cosigned by Ceci Mitchell MD at 01/31/2025 12:45 PM EDT Associated attestation - Ceci Mitchell MD - 01/31/2025 12:45 PM EDT I was present for the entirety of the procedure(s). * H&P - Doug Lundy MD - 01/31/2025 6:12 AM EDT Images from the original note were not included. Urology History and Physical Subjective: 64 year old female who follows in the urology clinic for bilateral hydronephrosis and neurogenic bladder. UDS on 12/20 showed poor compliance and immediate VUR on the left. She underwent a CTU due to gross hematuria, which demonstrated bilateral hydronephrosis down to the bladder with extensive filling defects in the bilaterall collecting systems, ureters, and bladder. After discussion of her options, she elected to proceed with cystoscopy and bilateral diagnostic ureteroscopy with possible biopsy, fulguration, and ureteral stent placement. No new medical history, medicines, or recent illnesses noted. ROS: 14 point ROS reviewed and negative except as per HPI Past 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[1] Surgical History[2] Prescriptions Prior to Admission[3] Allergies[4] Social History[5] Family History[6] Employer: No address on file. Travel Screening No screening recorded since 01/30/25 0613 Travel History Travel since 12/31/24 No documented travel since 12/31/24 VACCINE / DOSE DATE Flu 05/11/2016 Tetanus Pneumovax Shingles Sulfa drugs, Ultram [tramadol], Hydrocodone, Pedi-pre tape spray [wound dressing adhesive], and Wellbutrin [bupropion] Current Medications[7] Objective: Vital signs in last 24 hours: General: Appears well, no distress Chest: no tachypnea, retractions or cyanosis Cardiac: normal sinus rhythm Abdomen: soft, non-tender Extremities: extremities warm Neurological: awake, alert Assessment: 64 year old female who follows in the urology clinic for bilateral hydronephrosis and neurogenic bladder. UDS on 12/20 showed poor compliance and immediate VUR on the left. She underwent a CTU due to gross hematuria, which demonstrated bilateral hydronephrosis down to the bladder with extensive filling defects in the bilaterall collecting systems, ureters, and bladder. After discussion of her options, she elected to proceed with cystoscopy and bilateral diagnostic ureteroscopy with possible biopsy, fulguration, and ureteral stent placement. Plan: The diagnoses, recommended procedures, and plan of care was once again discussed in detail with thepatient. All risks, benefits, and alternatives of the procedure were clearly elucidated. All questions were solicited and answered to satisfaction. Informed consent was obtained. We will proceed today with operative management as discussed. Patient and plan of care discussed with Ceci Mitchell MD who is in agreement. - To OR for cystoscopy and bilateral diagnostic ureteroscopy with possible biopsy, fulguration, andureteral stent placement. [1] Past 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: Diagnosis Date Anxiety Breast cancer Cerebral infarction, unspecified (CMS/HCC) CVA (cerebral infarction) COPD (chronic obstructive pulmonary disease) ([facility]) Depression Fibromyalgia History of falling History of fall Hypertension Personal history of other diseases of the musculoskeletal system and connective tissue History of osteoporosis Personal history of other endocrine, nutritional and metabolic disease History of diabetes mellitus Personal history of other specified conditions History of headache Personal history of urinary (tract) infections History of urinary tract infection [2] Past Surgical History: Procedure Laterality Date BREAST SURGERY N/A Breast Surgery Reconstruction from [facility] BREAST SURGERY N/A Breast Surgery from [facility] CHOLECYSTECTOMY N/A Cholecystotomy from [facility] KIDNEY SURGERY N/A Kidney Surgery from [facility] KNEE SURGERY N/A Knee Surgery from [facility] MASTECTOMY N/A Breast Surgery Mastectomy from [facility] SHOULDER SURGERY Right Shoulder Surgery Right from [facility] [3] No medications prior to admission. [4] Allergies Allergen Reactions Sulfa Drugs Anaphylaxis Ultram [Tramadol] Swelling lips swell Hydrocodone Unknown - Patient states they do not know rxn details [facility] is unaware of what reaction. Pedi-Pre Tape [place] [Wound Dressing Adhesive] Rash Wellbutrin [Bupropion] Rash [5] Social History Tobacco Use Smoking status: Former Current packs/day: 0.00 Types: Cigarettes Quit date: 07/22/2022 Years since quittin.5 Passive exposure: Past Smokeless tobacco: Never Vaping Use Vaping status: Never Used Substance Use Topics Alcohol use: Not Currently Drug use: Never [6] Family History Problem Relation Name Age of Onset Cancer Mother Stroke Mother Cancer Father Menorrhagia Father Breast cancer Mother's Sister Cancer Mother's Sister Malig Hyperthermia Neg Hx Anesthesia problems Neg Hx [7] No current facility-administered medications for this encounter. Current Outpatient Medications Medication Sig Dispense Refill acetaminophen (Tylenol) 500 MG tablet Take 1 tablet by mouth every 6 hours as needed. anastrozole (Arimidex) 1 MG chemo tablet Take 1 tablet (1 mg total) by mouth daily. ARIPiprazole (Abilify) 5 MG tablet Take 1 tablet (5 mg) by mouth 1 (one) time each day. Artificial Tears ophthalmic solution Administer 2 drops into both eyes 3 times a day as needed. ascorbic acid (Vitamin C) 500 MG tablet Take 1 tablet by mouth twice a day. atorvastatin (Lipitor) 40 MG tablet Take 1 tablet by mouth daily. azelastine (Astelin) 0.1 % nasal spray Administer 2 sprays into each nostril 2 times a day. Use in each nostril as directed baclofen (Lioresal) 10 MG tablet Take 1 tablet by mouth 3 times a day. Breo Ellipta 100-25 MCG/ACT aerosol powder Inhale 1 puff daily. calcitriol (Rocaltrol) 0.25 MCG capsule Take 1 capsule by mouth daily. carvedilol (Coreg) 12.5 MG tablet Take 1 tablet by mouth 2 times a day with meals. cholecalciferol (Vitamin D3) 25 MCG (1000 UT) tablet Take 1 tablet by mouth 2 times a day. clopidogrel (Plavix) 75 MG tablet Take 1 tablet by mouth daily. cyanocobalamin (Vitamin B-12) 1000 MCG tablet Take 1 tablet by mouth daily. D-Mannose 500 MG capsule Take 2,000 mg by mouth 1 (one) time each day. 120 capsule 11 dextromethorphan-guaiFENesin (Robitussin-DM) 10-100 MG/5ML liquid Take 10 mL by mouth every 4 (four) hours if needed. (Patient not taking: No sig reported) diphenhydrAMINE (Benadryl) 25 MG tablet Take 1 [...] into the vagina 3x/week 30 g 3 fentaNYL (Duragesic) 12 MCG/HR Place 1 patch on the skin every 3rd (third) day. 3 patch 0 ferrous sulfate 325 (65 Fe) MG tablet Take 1 tablet by mouth daily with breakfast. fluticasone (Flonase) 50 MCG/ACT nasal spray Administer 1 spray into each nostril 2 times a day. guaiFENesin (GUAIASORB PO) Take 10 mL by mouth every 4 hours as needed. insulin aspart, w/niacinamide, (Fiasp) 100 UNIT/ML solution vial Inject as directed 2 (two) times aday. Per sliding scale @ 1130 and 1630 insulin glargine (Basaglar KwikPen) 100 UNIT/ML injection pen Inject 70 Units under the skin 2 times a day. @ 0630 and 2000 ipratropium-albuterol (Duo-Neb) 0.5-2.5 mg/3 mL nebulizer solution Take 3 mL by nebulization every 6 hours as needed. loperamide (Imodium) 2 MG capsule Take 1 capsule by mouth every 4 hours as needed. magnesium oxide (Mag-Ox) 400 mg tablet Take 1 tablet by mouth 2 times a day. mirabegron ER (Myrbetriq) 25 MG tablet Take 1 tablet by mouth every morning. multivitamin (Theragran-M) tablet Take 1 tablet by mouth daily. ondansetron (Zofran) 4 MG tablet Take 1 tablet by mouth every 6 hours as needed. oxyCODONE-acetaminophen (Percocet) 5-325 MG tablet Take 1 tablet by mouth 2 (two) times a day if needed for severe pain. 6 tablet 0 pantoprazole (ProtoNix) 20 MG EC tablet Take 1 tablet by mouth daily before breakfast. pregabalin (Lyrica) 50 MG capsule Take 1 capsule (50 mg) by mouth 2 (two) times a day. 60 capsule 0 rivaroxaban (Xarelto) 15 MG tablet Take 1 tablet by mouth every evening. Take with food. traZODone (Desyrel) 150 MG tablet Take 2 tablets by mouth nightly. traZODone (Desyrel) 300 MG tablet (Patient not taking: Reported on 01/24/2025) trospium (Sanctura) 20 MG tablet Take 1 tablet (20 mg) by mouth 2 (two) times a day. 60 tablet 11 Vibegron 75 MG tablet Take 75 mg by mouth daily. Take one pill by mouth daily. (Patient not taking:Reported on 01/24/2025) 30 tablet 11 Cosigned by Ceci Mitchell MD at 01/31/2025 9:51 AM EDT Associated attestation - Ceci Mitchell MD - 01/31/2025 9:51 AM EDT I saw and evaluated the patient. I discussed the case with the resident/fellow and agree with the findings and plan as documented. documented in this encounter Plan of Treatment Upcoming Encounters Date Type Department Care Team (Late st Contact Info) Description 03/07/2025 10:00 AM EDT Office Visit [facility] Urology [address] [place] [address] Doug Chapman MD [address] [place] [address] 03/27/2025 10:30 AM EDT Appointment [facility] [address] [place] [address] 03/27/2025 11:50 AM EDT Clinical Support Medical Office Building Lab [address] [place] [address] 03/27/2025 1:00 PM EDT Office Visit Medical Office Building Urology [address] [facility], [address] [place] [address] Cayla Erazo, KITCHEN MECHANIC, DNP [address] [place] [address] 05/16/2025 8:00 AM EDT Office Visit [facility] [address] [facility], [address] [place] [address] Karly Gracia MD [address] [place] [address] 06/07/2025 1:00 PM EDT Office Visit [facility] [address] [facility] [address] [place] [address] Tom Iraheta MD [address] [place] [address] documented as of this encounter Goals Goal Patient Goal Type Associated Problems Recent Progress Patient-Stated? Author Autogenerat ed Goal Care Plan Autogenerated Problem Eugenia So documented as of this encounter Procedures Procedure Name Priority Date/Time Associated Diagnosis Comments POCT GLUCOSE METER UNSOLICITED RESULTS Routine 01/31/2025 11:39 AM EDT FL LESS THAN 1 HOUR (NON-REPORTABLE) Routine 01/31/2025 11:14 AM EDT FUNGAL CULTURE, ROUTINE Routine 01/31/2025 10:23 AM EDT Gross hematuria URINE CULTURE Routine 01/31/2025 10:22 AM EDT Gross hematuria NV CYSTO/URETERO/PYELOS C,BX &/OR FULG LESN 01/31/2025 9:32 AM EDT Gross hematuria POCT GLUCOSE METER UNSOLICITED RESULTS Routine 01/31/2025 8:47 AM EDT documented in this encounter Results * (ABNORMAL) POCT glucose meter (01/31/2025 11:39 AM EDT) POCT Glucose 135(H) 74 - 99 mg/dL 01/31/2025 11:41 AM EDT [facility] Comment:Accuracy of a glucos e result obtained from a capillary whole blood specimen relies upon adequate, non-compromised capillary blood flow. If the capillary glucose result is not consistent with the patient's clinical signs and symptoms, glucose testing should be repeated with either an arterial or venous sample on the glucometer or sent to the main labortory for testing. Comment 01/31/2025 11:41 AM EDT [facility] Pig Breeder ID Abbey Medina 01/31/2025 11:41 AM EDT [facility]ALTH[facility]ARE LAB Device ID [id number] 01/31/2025 11:41 AM EDT [facility] Specimen Type POC Capillary 01/31/2025 11:41 AM EDT [facility] Blood Capillary blood specimen / Unknown 01/31/2025 11:39 AM EDT 01/31/2025 11:41 AM EDT us Ceci Mitchell MD LAB POINT OF CARE TE ST DOCKED DEVICE UNSOLICITED RESULTS Final Result [facility] [address] [place] [address] * FL Less than 1 Hour Intraoperative (01/31/2025 11:14 AM EDT) Narrative IMAGING - 01/31/2025 11:15 AM EDT Images were obtained for surgical purposes. See Ceci iMtchell's surgical note in the patient's chart for the findings. us Ceci Mitchell MD IMG FLUOROSCOPY PROCEDURES F inal Result IMAGING * (ABNORMAL) Fungal Culture, Routine (01/31/2025 10:23 AM EDT) Culture Confluent Growth Maira glabrata(A) 02/08/2025 11:50 AM EDT [facility] Urine Urinary bladder structure / Unknown 01/31/2025 10:23 AM EDT 01/31/2025 11:38 AM EDT Comment:Pre-op diagnosis: Gross hematuria us Ceci Mitchell MD LAB MICROBIOLOGY - GENERAL O RDERABLES Final Result Performing Organization Address City/[facility]/[place] [address] * Urine Culture (01/31/2025 10:22 AM EDT) Pathologist [facility] Culture No growth at day 1 02/01/2025 8:02 AM EDT [facility] Urine Urinary bladder structure / Unknown 01/31/2025 10:22 AM EDT 01/31/2025 11:38 AM EDT Comment:Pre-op diagnosis: Gross hematuria us Ceci Mitchell MD LAB MICROBIOLOGY - GENERAL O RDERABLES Final Result Performing Organization Address [facility] [place] [address] * (ABNORMAL) POCT glucose meter (01/31/2025 8:47 AM EDT) POCT Glucose 135(H) 74 - 99 mg/dL 01/31/2025 8:49 AM EDT [facility] Comment:Accuracy of a glucos e result obtained from a capillary whole blood specimen relies upon adequate, non-compromised capillary blood flow. If the capillary glucose result is not consistent with the patient's clinical signs and symptoms, glucose testing should be repeated with either an arterial or venous sample on the glucometer or sent to the main labortory for testing. Comment 01/31/2025 8:49 AM EDT [facility] Pig Breeder ID Khai Jamison 02/01/20 8:49 AM EDT [facility] Device ID [id number] 01/31/2025 8:49 AM EDT [facility] Specimen Type POC Capillary 01/31/2025 8:49 AM EDT [facility] Blood Capillary blood specimen / Unknown 01/31/2025 8:47 AM EDT 01/31/2025 8:49 AM EDT us Ceci Mitchell MD LAB POINT OF CARE TE ST DOCKED DEVICE UNSOLICITED RESULTS Final Result [facility] [address] [place] [address] documented in this encounter Visit Diagnoses Diagnosis Urinary retention- Primary Unspecified retention of urine Gross hematuria documented in this encounter Administered Medications Inactive Administered Medications - up to 3 most recent administrations Medication Order MAR Action Action Date Dose Rate Site acetaminophen (Tylenol) tablet 1,000 mg 1,000 mg, Oral, Once, 1 dose, On Hermelinda 01/31/25 at 1315, Routine Given 01/31/2025 12:38 PM EDT 1,000 mg fentaNYL (Sublimaze) injection 25 mcg 25 mcg, Intravenous, Every 5 min PRN, 2 doses, Starting on Hermelinda 01/31/25 at 1102, Until Hermelinda 01/31/25 at 1539, Routine, Recovery (Phase I only), pain score of 3-4 out of 10 fentaNYL (Sublimaze) injection 50 mcg 50 mcg, Intravenous, Every 5 min PRN, 2 doses, Starting on Hermelinda 01/31/25 at 1102, Until Hermelinda 01/31/25 at 1539, Routine, Recovery (Phase I only), pain score of 5-8 out of 10 lactated Ringer's infusion 20 mL/hr, Intravenous, Continuous, Starting on Hermelinda 01/31/25 at 0930, Until Hermelinda 01/31/25 at 1539, Routine New Bag 01/31/2025 9:50 AM EDT Continued by Anesthesia 01/31/2025 9:48 AM EDT 20 mL/hr New Bag 01/31/2025 9:35 AM EDT 20 mL/hr 20 mL/hr naloxone (Narcan) injection 0.4 mg 0.4 mg, Intravenous, As needed, Starting on Hermelinda 01/31/25 at 1102, Until Hermelinda 01/31/25 at 1539, Routine, Recovery (Phase I only), respiratory depression ondansetron (Zofran) injection 4 mg 4 mg, Intravenous, Once as needed, 1 dose, Starting on Hermelinda 01/31/25 at 1102, Until Hermelinda 01/31/25 at 1539, Routine, Recovery (Phase I only), nausea, vomiting oxyCODONE (Roxicodone) immediate release tablet 10 mg 10 mg, Oral, Once as needed, 2 doses, Starting on Hermelinda 01/31/25 at 1102, Until Hermelinda 01/31/25 at 1539, Routine, Recovery (Phase I only), pain score of 6-8 out of 10 oxyCODONE (Roxicodone) immediate release tablet 5 mg 5 mg, Oral, Once as needed, 2 doses, Starting on Hermelinda 01/31/25 at 1102, Until Hermelinda 01/31/25 at 1539, Routine, Recovery (Phase I only), pain score of 3-5 out of 10 documented in this encounter Active and Recently Administered Medications Times are shown in EDT. Scheduled Medication Order 01/29/2025 01/30/2025 01/31/2025 acetaminophen (Tylenol) tablet 1,000 mg (COMPLETED) 1,000 mg, Oral, Once, 1 dose, On Hermelinda 01/31/25 at 1315, Routine 1238 (Given - Provid er: Lee Leal) cefTRIAXone (Rocephin) 1 g in sodium chloride 0.9% 100 mL IVPB (vial adapter required) (COMPLETED) 1 g, Intravenous, Once, 1 dose, On Hermelinda 01/31/25 at 1130, Routine 1010 (New Bag - Prov ider: Migue Seay CRNA) Continuous Medication Order 01/29/2025 01/30/2025 01/31/2025 lactated Ringer's infusion 20 mL/hr, Intravenous, Continuous, Starting on Hermelinda 01/31/25 at 0930, Until Hermelinda 01/31/25 at 1539, Routine 0935 (New Bag - Prov ider: Jovita Orosco RN)0948 (Continued by Anesthesia - Provider: Migue Seay CRNA)0949 (Stopped - Provider: Migue Seay CRNA)0950 (New Bag - Provider: Migue Seay CRNA)1113 (Stopped - Provider: Migue Seay CRNA) PRN Medication Order 01/29/2025 01/30/2025 01/31/2025 fentaNYL (Sublimaze) injection 25 mcg 25 mcg, Intravenous, Every 5 min PRN, 2 doses, Starting on Hermelinda 01/31/25 at 1102, Until Hermelinda 01/31/25 at 1539, Routine, Recovery (Phase I only), pain score of 3-4 out of 10 fentaNYL (Sublimaze) injection 50 mcg 50 mcg, Intravenous, Every 5 min PRN, 2 doses, Starting on Hermelinda 6/25 at 1102, Until Hermelinda 625 at 1539, Routine, Recovery (Phase I only), pain score of 5-8 out of 10 iohexol (OMNIPaque) 300 MG/ML injection (CANCELED) As needed, Starting on Hermelinda 625 at 1017, Until Hermelinda 625 at 1125, Routine, Intraprocedure 1017 (Given - Provid er: Ceci Mitchell MD) naloxone (Narcan) injection 0.4 mg 0.4 mg, Intravenous, As needed, Starting on Hermelinda 625 at 1102, Until Hermelinda 625 at 1539, Routine, Recovery (Phase I only), respiratory depression ondansetron (Zofran) injection 4 mg 4 mg, Intravenous, Once as needed, 1 dose, Starting on Hermelinda 625 at 1102, Until Hermelinda 625 at 1539, Routine, Recovery (Phase I only), nausea, vomiting oxyCODONE (Roxicodone) immediate release tablet 10 mg(Linked Group 1) 10 mg, Oral, Once as needed, 2 doses, Starting on Hermelinda 6/25 at 1102, Until Hermelinda 6/25 at 1539, Routine, Recovery (Phase I only), pain score of 6-8 out of 10 oxyCODONE (Roxicodone) immediate release tablet 5 mg(Linked Group 1) 5 mg, Oral, Once as needed, 2 doses, Starting on Hermelinda 6/25 at 1102, Until Hermelinda 6//25 at 1539, Routine, Recovery (Phase I only), pain score of 3-5 out of 10 Linked Groups Order Group 1: oxyCODONE (Roxicodone) immediate release tablet 5 mgJump to med 5 mg, Oral, Once as needed, 2 doses, Starting on Hermelinda 6/25 at 1102, Until Hermelinda 6/25 at 1539, Routine, Recovery (Phase I only), pain score of 3-5 out of 10 Or oxyCODONE (Roxicodone) immediate release tablet 10 mgJump to med 10 mg, Oral, Once as needed, 2 doses, Starting on Hermelinda 01/31/25 at 1102, Until Hermelinda 01/31/25 at 1539, Routine, Recovery (Phase I only), pain score of 6-8 out of 10 documented in this encounter Additional Health Concerns Active [...] documented as of this encounter Care Teams Road Test Examiner Relationship Specialty Start Date End Date Vignesh Pickens MD [address] [place] [address] PCP - General 12/31/24 Cayla Erazo APRN, FREDERICK [id number] [place] [address] Nurse Practitioner Urology 12/20/24 documented as of this encounter
--- OUTSIDE RECORDS SUMMARY | 2025-01-31 08:55 | XMS_ITS | Encounter Summary ---
Author Organization Healthcare Address [address] [place] [address] Care Team Providers Care Public Affairs Manager Name Role Phone Cayla Erazo APRN, DNP Unavailable [phone] Vignesh Pickens MD Primary Care Provider [phone] Reason for Visit * Auth/Cert (Routine) Specialty Diagnoses / Procedures Referred By Contelvie t Referred To Contact Diagnoses Gross hematuria Gross hematuria Procedures [place] CYSTO/URETERO/PYELOSC,BX &/OR FULG LESN URETEROSCOPY, WITH BIOPSY POSSIBLE STENT PLACEMENTS Ceci Mitchell MD [address] [address] Phone: tel: fax: [facility] RO[facility] [address] [place] [address] Phone: tel: Referral ID Status Reason Start Date Expiration Date Visits Re quested Visits Authorized [id number] 1 1 Encounter Details Date Type Department Care Team (Late st Contact Info) Description 01/31/2025 8:55 AM EDT - 01/31/2025 10:10 AM EDT Surgery [facility] RO[facility] [address] [place] [address] Ceci Mitchell MD [address] [address] URETEROSCOPY,CYSTOSCOP Y, RETROGRADE PYELOGRAM, BILATERAL STENT PLACEMENT [38383 (CPT )] Surgery Details Date/Time Status Location OR Service Patient Class Case Class Case Type Trauma Case? 01/31/2025 8:55 AM Posted ELMO [facility] E-Electiv e Panel 1 Procedure [...] time in the past 12 m [facility], were you homeless or living [...] drink first t rodríguez in the morning (EYE-RUG CLEANER HAND) to steady your nerves or to get [...] your location ahead of your appointment) [facility] Urology Department Clinic at [facility] [address], [address]nd Floor, Wing [address], [address] [place] [address] Clinic After Hours [facility] Medical Office Building Urology Clinic [address] [place] [address] Clinic After Hours documented in this encounter [...] each day. 120 capsule 11 09/26/2024 6 dextromethorphan -guaiFENesin (Robitussin-DM) 10-100 MG/5ML liquid Take [...] POSTOPERATIVE DIAGNOSIS: Same SURGEON: Ceci Mitchell MD ATHLETIC GEAR CUSTODIAN SURGEON(S): Gerry Cullen DO, Doug Lundy MD [...] the start of the case. A 19 [place] rigid cystoscope was introduced into the patient's [...] of the renal pelvis. We advanced a [place] catheter over our sensor wire and performed [...] leave stents bilaterally with strings. Used 7 [place] Korean by 24 cm double-J stents on strings. These were placed without difficulty and intraoperative fluoroscopy was used to confirm appropriate positioning with the proximal curls in the renal pelvises bilaterally in the distal curls in the bladder. An 18 [place] García catheter was placed at the conclusion [...] Cullen DO PGY-3, Department of Urology Pager: [phone] Cosigned by Ceci Mitchell MD at 01/31/2025 [...] BREAST SURGERY N/A Breast Surgery Reconstruction from [employer] BREAST SURGERY N/A Breast Surgery from [employer] CHOLECYSTECTOMY N/A Cholecystotomy from [employer] KIDNEY SURGERY N/A Kidney Surgery from [employer] KNEE SURGERY N/A Knee Surgery from [employer] MASTECTOMY N/A Breast Surgery Mastectomy from [employer] SHOULDER SURGERY Right Shoulder Surgery Right from [employer] [3] No medications prior to admission. [4] Allergies Allergen Reactions Sulfa Drugs Anaphylaxis Ultram [Tramadol] Swelling lips swell Hydrocodone Unknown - Patient states they do not know rxn details [facility] is unaware of what reaction. Pedi-Pre Tape [place] [Wound Dressing Adhesive] Rash Wellbutrin [Bupropion] Rash [...] Description 03/07/2025 10:00 AM EDT Office Visit [facility] Urology [address], 2nd [place] [address] Doug Chapman MD [address] [place] [address] 03/27/2025 10:30 AM EDT Appointment [facility] Ultrasound [address], 2nd [place] [address] 03/27/2025 11:50 AM EDT Clinical Support Medical Office Building Lab [address] [place] [address] 03/27/2025 1:00 PM EDT Office Visit Medical Office Building Urology [address] [facility], [address] [place] [address] Cayla Erazo, MELTER SUPERVISOR ELECTRIC ARC FURNACE, DNP [address] [place] [address] 05/16/2025 8:00 AM EDT Office Visit [facility] [place] [address] [facility], [address] [place] [address] Karly Gracia MD [address] [place] [address] 06/07/2025 1:00 PM EDT [facility] [address] [place] [address] Tom Iraheta MD [address] [place] [address] documented as of this encounter [...] Routine 01/31/2025 10:22 AM EDT Gross hematuria WI CYSTO/URETERO/PYELOS C,BX &/OR FULG LESN 01/31/2025 9:32 [...] Comment 01/31/2025 11:41 AM EDT HEALTHCARE LAB Hardware Technician ID Abbey Medina 01/31/2025 11:41 AM EDT [facility] Device ID [id number] 01/31/2025 11:41 AM EDT [facility] Specimen Type POC Capillary 01/31/2025 11:41 AM EDT [facility] Blood Capillary blood specimen / Unknown 01/31/2025 11:39 AM EDT 01/31/2025 11:41 AM EDT Ceci Mitchell MD LAB POINT OF CARE TE ST DOCKED DEVICE UNSOLICITED RESULTS Final Result [facility] [address] [place] [address] * [place] Less than 1 Hour Intraoperative (01/31/2025 11:14 AM EDT) Narrative IMAGING - 01/31/2025 11:15 AM EDT Images were obtained for surgical purposes. See Ceci Mitchell's surgical note in the patient's chart for the findings. us Ceci iMtchell MD IMG FLUOROSCOPY PROCEDURES F inal Result Performing Organization Address City/[facility] Co de Phone Number IMAGING * (ABNORMAL) Fungal Culture, Routine (01/31/2025 10:23 AM EDT) Culture Confluent Growth Maira glabrata(A) 02/08/2025 11:50 AM EDT [facility] Urine Urinary bladder structure / Unknown 01/31/2025 10:23 AM EDT 01/31/2025 11:38 AM EDT Comment:Pre-op diagnosis: Gross hematuria us Ceci Mitchell MD LAB MICROBIOLOGY - GENERAL O RDERABLES Final Result Performing Organization Address [facility] de Phone Number [facility] [address] [place] [address] * Urine Culture (01/31/2025 10:22 AM EDT) Culture No growth at day 1 02/01/2025 8:[address] [facility] Urine Urinary bladder structure / Unknown 01/31/2025 10:22 AM EDT 01/31/2025 11:38 AM EDT Comment:Pre-op diagnosis: Gross hematuria us Ceci Mitchell MD LAB MICROBIOLOGY - GENERAL O RDERABLES Final Result Performing Organization Address [facility] Co nv Phone Number [facility] [address] [place] [address] * (ABNORMAL) POCT glucose meter (01/31/2025 8:47 AM EDT) POCT Glucose 135(H) 74 - 99 mg/dL 01/31/2025 8:49 AM EDT [facility] Comment:Accuracy of a glucos e result [...] Comment 01/31/2025 8:49 AM EDT HEALTHCARE LAB Hardware Technician ID Khai Jamison 02/01/20 8:49 AM EDT HEALTHCARE LAB Device ID [id number] 01/31/2025 8:49 AM EDT HEALTHCARE LAB Specimen Type POC Capillary 01/31/2025 8:49 AM EDT [facility]ALTH[facility]ARE LAB Blood Capillary blood specimen / Unknown 01/31/2025 8:47 AM EDT 01/31/2025 8:49 AM EDT us Ceci Mitchell MD LAB POINT OF CARE TE ST DOCKED DEVICE UNSOLICITED RESULTS Final Result [facility]ALTH[facility]ARE LAB [address] [place] [address] documented in this encounter Visit Diagnoses Diagnosis [...] documented as of this encounter Care Teams Public Affairs Manager Relationship Specialty Start Date End Date Vignesh Pickens MD [address] [place] [address] PCP - General 12/31/24 Cayla Erazo APRN, FREDERICK [address] [facility] [address] [place] [address] Nurse Practitioner Urology 12/20/24 documented as of this encounter
--- OUTSIDE RECORDS SUMMARY | 2025-01-31 09:48 | XMS_ITS | Encounter Summary ---
Author Organization Healthcare Address [address] [place] [address] Care Team Providers Care Station Worker Name Role Phone Cayla Erazo APRN, FREDERICK Unavailable [phone] Vignesh Pickens MD Primary Care Provider [phone] Reason for Visit * Auth/Cert (Routine) Specialty Diagnoses / Procedures Referred By Clara stoner Referred To Contact Diagnoses Gross hematuria Gross hematuria Procedures [place] CYSTO/URETERO/PYELOSC,BX &/OR FULG LESN URETEROSCOPY, WITH BIOPSY POSSIBLE STENT PLACEMENTS Ceci Mitchell MD [address] [facility] [address] [place] [address] Phone: tel: fax: [facility] RO[facility] [address] [place] [address] Phone: tel: Referral ID Status Reason Start Date Expiration Date Visits Re quested Visits Authorized [id number] 1 1 Encounter Details Date Type Department Care Team (Late st Contact Info) Description 01/31/2025 9:48 AM EDT Anesthesia Event [facility] [address] [place] [phone] Nj Sears MD [address] [place] [address] Anesthesia Record Procedure Summary Procedure [...] Hand; Site Prep: Chlorhexidine ; Local Anesth: [place]; Technique: Anatomical landmarks; Inserted by: james orosco [...] No change to dentition. ; Placed by: CORPORATE DIRECTOR OF PHARMACY; Removal Date: 01/31/25; Removal Time: 1122 01/31/25 [...] any time in the past 12 m [facility], were you homeless or living in a [...] drink first t rodríguez in the morning (EYE-GASOLINE DRAGLINE OPERATOR) to steady your nerves or to get rid of a hangover? 0 08/15/2024 CAGE Questionnaire Score 0 024 Utilities Answer Date Recorded In the past 12 months has e [employer], gas, oil, or water [employer] threatened to shut off services in [...] and Staff Patient location during procedure: OR CORPORATE DIRECTOR OF PHARMACY: Migue Saey CRNA Performed: CORPORATE DIRECTOR OF PHARMACY Patient Condition Indications for airway management: anesthesia [...] WITH BIOPSY POSSIBLE STENT PLACEMENTS (Bilateral) Location: [address] / [place] Surgeons: Ceci Mitchell MD Department of [...] were no vitals filed for this visit. [place] body weight: 54.7 kg (120 lb 9.5 [...] Abnormal Ventricular Rate 77 Atrial Rate 77 VT Interval 180 QRSD Interval 124 QT Interval 416 QTC Interval 470 P [place] 23 R [place] 268 T Wave [place] 67 Diagnosis Normal sinus rhythm Diagnosis Right [...] valvular disease. PFTs No results found for: [id number] , [id number] , [id number] , FVCPRED Relevant Problems Cardio (+) Asymptomatic bilateral carotid artery stenosis (+) Atrial premature depolarization (+) CAD (coronary artery disease), [place] coronary artery (+) Deep venous thrombosis of lower extremity (+) Dyspnea, unspecified (+) Essential (primary) hypertension (+) Old myocardial infarction (+) Other specified cardiac arrhythmias (+) PVD (peripheral vascular disease) ([facility]) (+) Peripheral vascular disease, unspecified ([facility]) (+) Unspecified right bundle-branch block (+) Venous embolism Endo (+) Controlled diabetes mellitus type II without complication (+) Nontoxic single thyroid nodule (+) Type 2 diabetes mellitus with diabetic chronic kidney disease ([facility]) (+) Type 2 diabetes mellitus without complication GI (+) Fecal impaction ([facility]) (+) GERD without esophagitis (+) Morbid (severe) obesity due to excess calories ([facility]) /Renal (+) Acute kidney injury superimposed on CKD ([facility]) (+) Calculus of kidney (+) Chronic kidney disease, stage 3a ([facility]) (+) Cyst of kidney, acquired (+) Hydronephrosis with renal and ureteral calculous obstruction (+) Hypertensive chronic kidney disease with stage 1 through stage 4 chronic kidney disease, or unspecified chronic kidney disease (+) Hypertensive heart and chronic kidney disease with heart failure and stage 1 through stage 4 chronic kidney disease, or unspecified chronic kidney disease ([facility]) (+) Kidney infection (+) Pyelonephritis (+) Recurrent UTI (+) Stage 3 chronic kidney disease ([facility]) (+) Tubulo-interstitial nephritis, not specified as acute or chronic (+) Type 2 diabetes mellitus with diabetic chronic kidney disease ([facility]) (+) Unspecified hydronephrosis Neuro/Psych (+) Headache, unspecified (+) Hx of AKA (above knee amputation), left ([facility]) (+) Stroke ([facility]) Pulmonary (+) COPD (chronic obstructive pulmonary disease) ([facility]) (+) Mixed simple and mucopurulent chronic bronchitis ([facility]) Other (+) Arthritis Anesthesia Evaluation Clinical information reviewed: NPO Status Physical Exam Airway Mallampati: III Mouth opening: normal TM distance: <3 FB Neck ROM: full Cardiovascular Rhythm: regular Rate: normal Dental Pulmonary Comments: Symmetric chest rise, moving air bilat, no increased wob Neurological Skin Musculoskeletal Extremities Anesthesia Plan ASA 3 Plan was reviewed with: CORPORATE DIRECTOR OF PHARMACY Anesthesia technique(s) discussed with the patient/family: general [...] Date Anxiety Breast cancer Cerebral infarction, unspecified ([facility]) CVA (cerebral infarction) COPD (chronic obstructive pulmonary disease) ([facility]) Depression Fibromyalgia History of falling History [...] BREAST SURGERY N/A Breast Surgery Reconstruction from [facility] BREAST SURGERY N/A Breast Surgery from [facility] CHOLECYSTECTOMY N/A Cholecystotomy from [facility] KIDNEY SURGERY N/A Kidney Surgery from [facility] KNEE SURGERY N/A Knee Surgery from [facility] MASTECTOMY N/A Breast Surgery Mastectomy from [facility] SHOULDER SURGERY Right Shoulder Surgery Right from [facility] [3] Allergies Allergen Reactions Sulfa Drugs Anaphylaxis Ultram [Tramadol] Swelling lips swell Hydrocodone Unknown - Patient states they do not know rxn details [facility] is unaware of what reaction. Pedi-Pre Tape [place] [Wound Dressing Adhesive] Rash Wellbutrin [Bupropion] Rash [...] Description 03/07/2025 10:00 AM EDT Office Visit [facility] [address], [address] [place] [address] Doug Chapman MD [id number] [place] [address] 03/27/2025 10:30 AM EDT Appointment [facility] Ultrasound [address] [place] [address] 03/27/2025 11:50 AM EDT Clinical Support Medical Office Building Lab [address] [place] [address] 03/27/2025 1:00 PM EDT Office Visit Medical Office Building Urology [address] [facility], [address] [place] [address] Cayla Erazo, COMMISSION CLERK, DNP [id number] [place] [address] 05/16/2025 8:00 AM EDT Office Visit [facility] [place] [address] [facility], [address] [place] [address] Karly Gracia MD [address] [place] [address] 06/07/2025 1:00 PM EDT Office Visit [place] [id number] [facility] [address] [place] [address] Tom Iraheta MD [address] [place] [address] documented as of this encounter Goals Goal Patient Goal Type Associated Problems Recent Progress Patient-Stated? Author Autogenerat ed Goal Care Plan Autogenerated Problem No Eugenia Hodge documented as of this encounter Procedures Procedure Name Priority Date/Time Associated Diagnosis Comments PB ANESTHESIA PLACEHOLDER Routine 01/31/2025 9:58 AM EDT VT AN ELECTIVE ENDOTRACHEAL AIRWAY Routine 01/31/2025 9:58 AM EDT documented in this encounter Results * VT AN ELECTIVE ENDOTRACHEAL AIRWAY, PB ANESTHESIA PLACEHOLDER (01/31/2025 9:58 AM EDT) Narrative Migue Seay CRNA - 01/31/2025 9:58 AM EDT Migue Seay CRNA 01/31/2025 10:45 AM Airway Date/Time: 01/31/2025 9:58 AM Reason: elective Airway not difficult General Information and Staff Patient location during procedure: OR CORPORATE DIRECTOR OF PHARMACY: Migue Seay CRNA Performed: LORETTA Patient Condition [...] documented as of this encounter Care Teams Station Worker Relationship Specialty Start Date End Date Vignesh Pickens MD [address] [facility] [place] [address] PCP - General 12/31/24 Cayla Erazo, COMMISSION CLERK, DNP [address] [facility] [address] [place] [address] Nurse Practitioner Urology 12/20/24 documented as of this encounter
--- OUTSIDE RECORDS SUMMARY | 2025-02-20 13:11 | XMS_ITS | Clinical Summary ---
Author Organization [facility] Address [address] [place] [address] Phone Care Team Providers Care Clinical Trial Educator Name Role Phone Arie Dougherty MD [phone] [ ] Conditions or Problems Problem Name Problem Code Onset Date Status Entry Date Provider Comment Standard Description Annotate Morbid obesity due to excess calories E66.01 (ICD-10-CM ) 10/25 Active 10/25 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 Morbid (severe) obesity due to excess calories DM II with diabetic PVD E11.51 (ICD-10-CM ) 01/14 Active 01/14 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 Type 2 diabetes mellitus with diabetic peripheral angiopathy without gangrene 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 manager (current) use of suppressive antibiotics/D oxycycline Z79.2 (ICD-10-CM ) 01/14 Active 01/14 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 manager (current) use of antibiotics Benign Essential Hypertension 89008504 (SNOMED CT) 01/14 Resolved 01/14 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 Benign hypertension 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) 20302626 (SNOMED CT) 10/25 Active 10/25 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 Benign hypertension Presence of left artificial knee joint Z96.652 (ICD-10-CM ) 10/25 Active 10/25 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 Presence of left artificial knee joint Hx of MRSA infection 168534909 (SNOMED CT) 10/25 Active 10/25 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 H/O: infectious disease Hx of malignant neoplasm of breast 641655814 (SNOMED CT) 03/02 Resolved 03/02 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 History of malignant neoplasm of breast Cellulitis of left leg 307079938 (SNOMED CT) 03/02 Resolved 03/02 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 Cellulitis of lower limb 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 manager (current) use of suppressive antibiotics Z79.2 (ICD-10-CM ) 01/14 Inactive 01/14 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 USP (current) use of antibiotics Anemia in chronic diseases(docu ment disease) D63.8 (ICD-10-CM ) 01/14 Active 01/14 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 Anemia in other chronic diseases classified elsewhere Chronic respiratory failure with hypoxia 21736756 (SNOMED CT) 01/14 Active 01/14 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 Acute respiratory failure COPD 21727883 (SNOMED CT) 01/14 Active 01/14 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 Chronic obstructive pulmonary disease DM Type II E11.9 (ICD-10-CM ) 01/14 Inactive 01/14 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 Type 2 diabetes mellitus without complications Benign Essential Hypertension 91395214 (SNOMED CT) 01/14 Removed 01/14 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 Benign hypertension Acquired absence of left knee joint 814825083 (SNOMED CT) 03/02 Resolved 03/02 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 History of operative procedure on knee Obesity due to excess calories E66.09 (ICD-10-CM ) 03/02 Resolved 03/02 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 Other obesity due to excess calories 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 manager (current) use of anticoagulant s Z79.01 (ICD-10-CM ) 03/02 Resolved 03/02 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 manager (current) use of anticoagulants Staph epi infection B95.7 (ICD-10-CM ) 03/02 Resolved 03/02 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 Other staphylococcus as the cause of diseases classified elsewhere Diarrhea 61417325 (SNOMED CT) 09/28 Resolved 09/28 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 Diarrhea Staph hominis infection B95.7 (ICD-10-CM ) 09/28 Resolved 09/28 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 Other staphylococcus as the cause of diseases classified elsewhere Staph hominis infection B95.7 (ICD-10-CM ) 09/28 Removed 09/28 Arie Dougherty MD Other staphylococcus as the cause of diseases classified elsewhere Diarrhea 88354986 (SNOMED CT) 09/28 Removed 09/28 Arie Dougherty MD Diarrhea Acquired absence of left knee joint 278981807 (SNOMED CT) 03/02 Removed 03/02 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 History of operative procedure on knee Cellulitis of left leg 243503542 (SNOMED CT) 03/02 Removed 03/02 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 Cellulitis of lower limb Knee, left, subsequent encounter, infection/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 T84.54xD (ICD-10-CM ) 03/02 Active 03/02 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 Infection and inflammatory reaction due to internal left knee prosthesis, subsequent encounter Staph epi infection B95.7 (ICD-10-CM ) 03/02 Removed 03/02 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 Other staphylococcus as the cause of diseases classified elsewhere 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 manager (current) use of anticoagulant s Z79.01 (ICD-10-CM ) 03/02 Removed 03/02 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 USP (current) use of anticoagulants Obesity due to excess calories E66.09 (ICD-10-CM ) 03/02 Removed 03/02 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 Other obesity due to excess calories Hx of malignant neoplasm of breast 287446382 (SNOMED CT) 03/02 Removed 03/02 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 History of malignant neoplasm of breast Medications Medication Instructions Start Date Stop Date Generic Name NDC Provider DOXYCYCLINE MONOHYDRATE 100 MG CAPS Take 1 capsule by mouth twice a day 10/25 doxycycline monohydrate 06243644047 Arie Dougherty MD ceftriaxone recon soln 2GM IV Q24hrs [facility] 02/18 ceftriaxone recon soln Temi Norris Cubicin RF 800mg IV Q48hrs [facility] 02/18 daptomycin Temi Norris DOXYCYCLINE MONOHYDRATE 100 MG CAPS Take 1 capsule by mouth twice a day 02/03 doxycycline monohydrate 15600129642 Arie Dominguez RF 800mg IV Q48hrs [facility] 02/18 daptomycin Nubia Ervin ceftriaxone recon soln 2GM IV Q24hrs [facility] 02/18 ceftriaxone recon soln Nubiadeidre Ervin IPRATROPIUM-ALBUT MIKE 0.5-2.5 (3) MG/3ML SOLN 3 ml by mouth PRN 01/27 ipratropium-albut mike 58609271290 Nubia Minor Gaviscon 95-358 mg/15 mL suspension by mouth four times a day 30 mL aluminum hydrox-magnesium carb 87536175557 Nubia Minor IPRATROPIUM-ALBUT MIKE 0.5-2.5 (3) MG/3ML SOLN using nebulizer every six hours PRN ipratropium-albut mike 05782661819 Nubia Minor BASAGLAR KWIKPEN 100 UNIT/ML SOPN subcutaneously once a day insulin glargine 65554498491 Nubia Minor MUCUS RELIEF D 60-600 MG AZ89C-BIS by mouth twice a day pseudoephedrine-g uaifenesin 63761042553 Nubia Minor VITAMIN B-12 100 MCG TABS by mouth once a day cyanocobalamin (vitamin b-12) 90107757552 Nubia Minor PERCOCET 5-325 MG TABS 1-2 tablet every four to six hours oxycodone-acetami nophen 74958174854 Nubia Minor BIOTIN 1000 MCG TABS by mouth once a day biotin 80163001300 Nubia Minor GABAPENTIN 800 MG TABS by mouth four times a day as needed gabapentin 43448578122 Nubia Minor ATORVASTATIN CALCIUM 40 MG TABS by mouth every morning Hold while on daptomycin atorvastatin 11653328962 Nubia Minor FERROUS SULFATE 325 (65 Fe) MG TABS by mouth once a day ferrous sulfate 98012416111 Nubia Minor VENLAFAXINE HCL 75 MG TABS by mouth twice a day venlafaxine 12816990907 Nubia Minor CITRACAL MAXIMUM 315-6.25 MG-MCG TABS by mouth twice a day calcium citrate-vitamin d3 26164752183 Nubia Poncho JANUMET XR 50-1000 MG AF50U-SOY by mouth twice a day sitagliptin phos-metformin 49670592351 Nubia Minor GNP HYDROCORTISONE/AL OE 1 % CREA Apply to skin twice a day as needed hydrocortisone acetate 59988391266 Nubia Minor MS CONTIN 15 MG CR-TABS by mouth twice a day morphine 85245167453 Nubia Minor OMEPRAZOLE 20 MG TBEC 2 tablet by mouth once a day omeprazole 95527943991 Nubia Minor DOXYCYCLINE HYCLATE 100 MG TABS Take 1 tablet by mouth twice a day 01/11 doxycycline hyclate 51144298755 Nubia Minor CARVEDILOL 12.5 MG TABS by mouth twice a day carvedilol 19808053729 Nubia Minor PROMETHAZINE HCL 25 MG TABS by mouth three times a day as needed promethazine 82856993737 Nubia Minor TIZANIDINE HCL 4 MG TABS by mouth three times a day as needed tizanidine 85910907096 Nubia Minor LACTULOSE 10 GM/15ML SOLN 30 ml by mouth as needed lactulose 21581652146 Nubia Minor COLACE 100 MG CAPS by mouth twice a day as needed docusate sodium 49997702194 Nubia Minor XARELTO TABLET 15 mg 15 mg Take 1 by mouth once a day XARELTO TABLET 15 mg 15 mg Nubia Minor ANASTROZOLE 1 MG TABS by mouth once a day anastrozole 17567968971 Nubia Minor ACETAMINOPHEN 500 MG TABS by mouth every six hours PRN acetaminophen 87816786803 Nubia Minor LOPERAMIDE HCL 2 MG CAPS by mouth once a day PRN loperamide 72900743381 Nubia Minor ASCORBIC ACID 500 MG TABS by mouth 0.5 tab am and 0.5 tab pm ascorbic acid (vitamin c) 84694403550 Nubia Minor BACLOFEN 10 MG TABS by mouth three times a day baclofen 33029213476 Nubia Minor BREO ELLIPTA 100-25 MCG/ACT AEPB every morning fluticasone furoate-vilantero l 29751512541 Nubia Minor BUMETANIDE 2 MG TABS by mouth twice a day bumetanide 28089806843 Nubia Minor CALCIUM 600 1500 (600 Ca) MG TABS by mouth twice a day calcium carbonate 63655157432 Nubia Minor D3 HIGH POTENCY 10 MCG (400 UNIT) TABS by mouth 2.5 units am and 2.5 units pm cholecalciferol (vitamin d3) 89803124004 Nubia Minor PLAVIX 75 MG TABS by mouth every morning clopidogrel 03138086404 Nubia Minor VITAMIN B-12 1000 MCG TABS by mouth every morning cyanocobalamin (vitamin b-12) 51271005814 Nubia Minor FLONASE ALLERGY RELIEF 50 MCG/ACT SUSP intranasally every morning fluticasone propionate 68581366915 Nubia Minor FOSAMAX 70 MG TABS by mouth once a week alendronate 95283740820 Nubia Minor GLIPIZIDE ER 2.5 MG BA93E-CQA by mouth every morning 0.5 tab glipizide 73729805234 Nubia Minor LANTUS SOLOSTAR 100 UNIT/ML SOPN 8 unit subcutaneously every night insulin glargine 15665305826 Nubia Minor IPRATROPIUM-ALBUT MIKE 0.5-2.5 (3) MG/3ML SOLN 3 ml by mouth PRN 01/27 ipratropium-albut mike 68961959764 Nubia Minor JARDIANCE 10 MG TABS by mouth every morning empagliflozin 91529258056 Nubia Minor MAGNESIUM OXIDE 400 MG TABS by mouth twice a day magnesium oxide 76372059671 Nubia Minor METFORMIN HCL 1000 MG TABS by mouth twice a day metformin 94843074227 Nubia Minor MULTI-VITAMIN HP/MINERALS CAPS by mouth once a day multivitamin,tx-m inerals 37965043560 Nubia Minor ONDANSETRON HCL 4 MG TABS by mouth twice a day PRN ondansetron hcl 94218008733 Nubia Minor PANTOPRAZOLE SODIUM 20 MG TBEC by mouth once a day pantoprazole 05998933691 Nubia Minor PREGABALIN 50 MG CAPS by mouth three times a day pregabalin 67437063672 Nubia Isaac SENNA 8.6 MG TABS by mouth 2 tabs PRN sennosides 62847935824 Nubia Isaac SPIRONOLACTONE 50 MG TABS by mouth once a day spironolactone 86724242221 Nubia Isaac TRAZODONE HCL 150 MG TABS by mouth once a day 2 tabs trazodone 87542913520 Nubia Isaac VALSARTAN 80 MG TABS by mouth twice a day valsartan 97454153300 Nubia Isaac VENLAFAXINE HCL ER 150 MG TP75H-CXJ by mouth every morning venlafaxine 55753734911 Nubia Isaac VANCOMYCIN HCL SOLR 1gm IV q 12 x 6wks [facility] [phone] 10/05 VANCOMYCIN HCL SOLR 25656171674 Libby Cabello JIMI MS CONTIN 15 MG CR-TABS by mouth twice daily 01/11 MORPHINE SULFATE 50620204643 Arie Dougherty MD PERCOCET 5-325 MG TABS 1-2 tabs, every four to six hours, do not exceed 4000mg of acetaminophen per day 01/11 OXYCODONE-ACETAMI NOPHEN 54640992021 Arie Dougherty MD [facility] IRON 325 (65 Fe) MG TABS by mouth daily 01/11 FERROUS SULFATE 50294037458 Arie Dougherty MD COLACE 100 MG CAPS by mouth twice daily as needed 02/19 DOCUSATE SODIUM 56504348850 Arie Dougherty MD DOXYCYCLINE HYCLATE 100 MG TABS take 1 tab po BID 02/19 DOXYCYCLINE HYCLATE 59755294240 Arie Dougherty MD XARELTO TABLET Take one by mouth once daily. 01/11 RIVAROXABAN TABS 34554292448 Arie Dougherty MD COUMADIN 5 MG ORAL TABLET by mouth, AC dinner 10/17 WARFARIN SODIUM 50478949822 Arie Dougherty MD VANCOMYCIN HCL SOLR 1gm IV q 12 x 6wks [facility] [phone] 08/22 VANCOMYCIN HCL SOLR 68607016210 [facility] VANCOMYCIN HCL SOLR 750 mg IV q 12 x 6wks [facility] [phone]) [phone] 03/31 VANCOMYCIN HCL SOLR 07788403083 [facility] VANCOMYCIN HCL SOLR 750 mg IV q 12 x 6wks [facility] [phone] (f) [phone] 08/22 VANCOMYCIN HCL SOLR 29274933682 Daily Lewis RN VENLAFAXINE HCL 75 MG TABS by mouth twice daily 01/11 VENLAFAXINE HCL 53849245291 Kulwant P PROMETHAZINE HCL 25 MG TABS by mouth three times a day as needed 01/11 PROMETHAZINE HCL 78939382837 Kulwant P B-12 100 MCG TABS by mouth daily 09/29 CYANOCOBALAMIN 65453348152 Kulwant P JANUMET XR 50-1000 MG QM76B-DQJ by mouth twice daily 01/11 SITAGLIPTIN-METFO RMIN HCL 49710938803 Kulwant P TIZANIDINE HCL 4 MG TABS by mouth three times a day as needed 01/11 TIZANIDINE HCL 04670496548 Kulwant P GABAPENTIN 800 MG TABS by mouth four times a day as needed 01/11 GABAPENTIN 90456758201 Kulwant P CARVEDILOL 12.5 MG TABS by mouth twice daily 01/11 CARVEDILOL 34885067805 Kulwant P ANASTROZOLE 1 MG TABS by mouth daily 01/11 ANASTROZOLE 57910330004 Kulwant P CITRACAL MAXIMUM 315-6.25 MG-MCG TABS by mouth twice daily 01/11 CALCIUM CITRATE-VITAMIN D 38880178047 Kulwant P [facility] OMEPRAZOLE 20 MG TBEC 2 tabs by mouth once daily 01/11 OMEPRAZOLE 60324390088 Kulwant P BIOTIN 1000 MCG TABS by mouth daily 01/11 BIOTIN 07497430075 Kulwant P ATORVASTATIN CALCIUM 40 MG TABS by mouth at bedtime 01/11 ATORVASTATIN CALCIUM 80458841562 Kulwant P COUMADIN 5 MG ORAL TABLET by mouth, AC dinner 05/19 WARFARIN SODIUM 50751110567 Kulwant P LACTULOSE SOLN 30mL by mouth as needed 02/19 LACTULOSE SOLN 47491939383 Kulwant P HYDROCORTISONE ACETATE 1 % CREA apply topically twice a day as needed 10/25 HYDROCORTISONE ACETATE 01548850665 Kulwant P MS CONTIN 15 MG CR-TABS by mouth twice daily 11/20 MORPHINE SULFATE 32427980728 Kulwant P [facility] IRON 325 (65 Fe) MG TABS by mouth daily 11/20 FERROUS SULFATE 42240721879 Kulwant P COLACE 100 MG CAPS by mouth twice daily as needed 02/19 DOCUSATE SODIUM 50223722985 Kulwant P PERCOCET 5-325 MG TABS 1-2 tabs, every four to six hours, do not exceed 4000mg of acetaminophen per day 11/20 OXYCODONE-ACETAMI NOPHEN 22465777356 Kulwant P VANCOMYCIN HCL SOLR 1gm IV q 12 x 6wks [facility] [phone] (e) [phone] 08/22 VANCOMYCIN HCL SOLR 43300973262 [facility] Medications Administered No information available. 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 ARCHIVIST yes Dietary management education, guidance, and counseling [...] Oral Antibiotic CPT-ca Continue IV antibiotics 2022 CPT-72892 CMP [id number] CBC with Differential 2022 CPT-29246 C- reactive protein [id number], [id number] CPK CPT-J7030 IV Fluids CPT-sl STAT Labs CPT-sl STAT Labs CPT-sl STAT Labs CPT-47141 C- reactive protein CPT-70391 Sedimentation Rate (ESR) 201 02/20/04 CPT-42605 Vancomycin Trough CPT-94793 CMP [id number] CBC with Differential 2015 CPT-18921 C- reactive protein CPT-17027 Sedimentation Rate (ESR) 201 01/31/26 CPT-ca Continue IV antibiotics 2015 CPT-wpc Weekly PICC Line Care 09/28 CPT-99433 CMP [id number] CBC with Differential 2015 CPT-91213 Vancomycin Trough CPT-08784 C- reactive protein CPT-58536 Sedimentation Rate (ESR) 201 01/31/07 CPT-cdpcr C-Diff PCR CPT-isi New IV antibiotic CPT-72691 PICC Line Insertion CPT-27576 [facility] [id number] CBC with Differential 2015 CPT-62364 C- reactive protein CPT-45425 Sedimentation Rate (ESR) 201 01/30/30 CPT-DC Discontinue IV antibiotics 2 CPT-PICREM PICC Removal CPT-ca Continue IV antibiotics 2015 CPT-91198 CMP [id number] CBC with Differential 2015 CPT-49291 C- reactive protein CPT-57383 Sedimentation Rate (ESR) 201 01/27/01 CPT-59780 Vancomycin Trough CPT-ca Continue IV antibiotics 2015 CPT-31690 CMP [id number] CBC with Differential 2015 CPT-06913 C- reactive protein CPT-48026 Sedimentation Rate (ESR) 201 01/27/20 CPT-92647 Vancomycin Trough CPT-ca Continue IV antibiotics 2015 [...]
--- OUTSIDE RECORDS SUMMARY | 2025-02-20 13:11 | XMS_ITS | Encounter Summary ---
Author Organization [facility] Address [address] [place] [address] Care Team Providers Care Entry Level Java Developer Name Role Phone Cayla Erazo APRN, DNP Unavailable [phone] Vignesh Pickens MD Primary Care Provider [phone] Encounter Details Date Type Department Care Team [...] any time in the past 12 m [facility], were you homeless or living in [...] drink first t rodríguez in the morning (EYE-CUSTOM BOOKBINDER) to steady your nerves or to get [...] Description 03/07/2025 10:00 AM EDT Office Visit MD Clinic Urology [address], [address] [place] [address] Doug Chapman MD [address] [facility] [address] [place] [address] 03/27/2025 10:30 AM EDT Appointment [facility] Ultrasound [address] [place] [address] 03/27/2025 11:50 AM EDT Clinical Support Medical Office Building Lab [address] [place] [address] 03/27/2025 1:00 PM EDT Office Visit Medical Office Building Urology [address], [address] [place] [address] Cayla Erazo, VENDING MACHINE COIN COLLECTOR, DNP [id number] [place] [address] 05/16/2025 8:00 AM EDT Office Visit [facility] [address], [address] [place] [address] Karly Gracia MD [address] [place] [address] 06/07/2025 1:00 PM EDT Office Visit [facility] [address] [place] [address] Tom Iraheta MD [address] [place] [address] documented as of this encounter [...] documented as of this encounter Care Teams Entry Level Java Developer Relationship Specialty Start Date End Date Vignesh Pickens MD [address] [place] [address] PCP - General 12/31/24 Cayla Erazo APRN, DNP [address] [place] [id number] Nurse Practitioner Urology 12/20/24 documented as of this encounter
--- OUTSIDE RECORDS SUMMARY | 2025-02-20 13:11 | XMS_ITS | Clinical Summary ---
Author Organization [facility] Address [address] [place] [address] Care Team Providers Care Instructor Bridge Name Role Phone Cayla Erazo APRN, DNP Unavailable [phone] Vignesh Pickens MD Primary Care Provider [phone] Allergies Active Allergy Reactions Criticality Noted Date [...] ureteral calculous obstruction 08/17/2024 Kidney infection 08/16/2024 [place] coma scale total sco re 13-15, unspecified [...] without esophagitis 03/28/2017 CAD (coronary artery disease), [place] coronary a rtery 03/28/2017 Controlled diabetes mellitus [...] Anesthesia Event [facility] [address] [place] [address] Nj Sears MD 01/31/2025 8:55 AM EDT - 01/31/2025 10:10 AM EDT Surgery [facility] [address] [place] [address] Ceci Mitchell MD URETEROSCOPY,CYSTOSCO PY, RETROGRADE PYELOGRAM, BILATERAL STENT PLACEMENT [60655 (CPT )] 01/31/2025 8:03 AM EDT - 01/31/2025 1:39 PM EDT Hospital Encounter [facility] [address] [place] [address] Ceci Mitchell MD Urinary retention (Primary Dx); Gross hematuria Discharge Disposition: Home or Self Care 01/31/2025 Travel 01/24/2025 2:00 PM EDT Pre-Admission Testing [facility] [address], [address] [place] [address] 01/24/2025 Travel 01/23/2025 Telephone [facility] [address], [address] [place] [address] Ceci Mitchell MD 01/17/2025 Telephone [facility] [address], [address] [place] [address] Ceci Mitchell MD 01/16/2025 Telephone [facility] [address], [address] [place] [address] Ceci Mitchell MD 01/03/2025 2:15 PM EDT - 01/03/2025 11:59 PM EDT Hospital Encounter [facility] [address], [address]nd [place] [address] Gross hematuria Discharge Disposition: Home or Self Care 01/03/2025 Travel 12/31/2024 4:00 PM EDT Office Visit [facility] [address] [facility] [address] [place] [address] Bert Canela MD Asymptomatic bilateral carotid artery stenosis (Primary Dx); PVD (peripheral vascular disease) ([facility]); Hx of AKA (above knee amputation), left ([facility]); History of stroke; Type 2 diabetes mellitus without complication, unspecified whether medical terminologist insulin use 12/31/2024 2:01 PM EDT - 12/31/2024 11:59 PM EDT Hospital Encounter [facility] Vascular Lab [address] [facility] 5[address] [place] [address] Coronary artery disease involving [place] heart without angina pectoris, unspecified vessel or lesion type; S/P AKA (above knee amputation) bilateral ([facility]); Acute left arterial ischemic stroke, ICA (internal carotid artery) ([facility]) Discharge Disposition: Home or Self Care 12/31/2024 2:01 PM EDT - 12/31/2024 11:59 PM EDT Hospital Encounter [facility] [address] [facility] [address] [place] [address] S/P AKA (above knee amputation) bilateral ([facility]); Encounter for surgical aftercare following surgery on the circulatory system Discharge Disposition: Home or Self Care 12/31/2024 Travel 12/20/2024 9:20 AM EDT Office Visit [facility] [address] [place] [address] Cayla Erazo, ROLL HANDLER, DNP Recurrent UTI (Primary Dx); Hydronephrosis, unspecified hydronephrosis type; Urinary retention; Post-menopausal atrophic vaginitis; Gross hematuria 12/20/2024 Orders Only External Location [address] [place] [address] Provider, External 12/20/2024 Travel 12/04/2024 12:05 PM EDT - 12/04/2024 11:59 PM EDT Hospital Encounter Medical Office Building Cardiac Diagnostic Testing Medical Office Building Echo Lab [address] [facility], [address] [place] [address] Coronary artery disease involving [place] heart without angina pectoris, unspecified vessel or lesion type Discharge Disposition: Home or Self Care 12/04/2024 Travel 11/27/2024 2:25 PM EDT - 11/27/2024 11:59 PM EDT Hospital Encounter [facility] [address] [place] [address] Hydronephrosis, unspecified hydronephrosis type; Urinary retention Discharge Disposition: Home or Self Care 11/27/2024 Travel from Last 3 Months Immunizations Immunization Administration Dates Next Due Influenza, injectable, quadrivalent, preservativ e free 05/11/2016 [employer] COVID-19 Vaccine (Purple Cap) 12 + 09/30/2020,09/09/2020 [...] any time in the past 12 m [facility], were you homeless or living in [...] drink first t rodríguez in the morning (EYE-MERCERIZER) to steady your nerves or to get rid of a hangover? 0 08/15/2024 CAGE Questionnaire Score 0 024 Utilities Answer Date Recorded In the past 12 months has th [email or web address], gas, oil, or water [employer] threatened to shut off services in your [...] Office Visit [facility] [address], [address] [place] [address] Doug Chapman MD [address] [place] [address] 03/27/2025 10:30 AM EDT Appointment [facility] Ultrasound [address], [address]nd [place] [address] 03/27/2025 11:50 AM EDT Clinical Support Medical Office Building Lab [address] [place] [address] 03/27/2025 1:00 PM EDT Office Visit Medical Office Building Urology [address] [facility], [address] [place] [address] Cayla Erazo, ROLL HANDLER, DNP [address] [facility] [address] [place] [address] 05/16/2025 8:00 AM EDT Office Visit [facility] [place] [facility] [address] [facility], [address] [place] [address] Karly Gracia MD [address] [place] [address] 06/07/2025 1:00 PM EDT Office Visit [facility] [address] [place] [address] Tom Iraheta MD [address] [place] [address] Health Maintenance Due Date Last [...] - Risk 60-74 years 1-dose series) 2019 [id number] Vaccine (3 - Pfizer risk series) 10/28/2020 09/30/2020, 09/09/2020 [facility]- SDOH Screenings 02/18/2025 [facility]-Adult SDOH Screenings 02/18/2025 08/20/2024 [facility]-Influenza Vaccine (#1) 2025 05/11/2016 [facility]-Depression Screening 12/20/2025 025, 09/26/2024, [...] [employer] Implanted Type Area Life Insurance Actuary Device Identifier Shelf Expiration Date Model / Serial / Lot Stent Ureteral Tria [employer] Monofilament 7f/24cm - [id number] Implanted:Qty: 1 on 01/31/2025 by Ceci Mitchell MD at [facility] Right: Kidney [employer]-[id number] 06/14/2027 [id number] / / [id number] Stent Ureteral [employer]ria [employer] Monofilament 7f/24cm - [id number] Implanted:Qty: 1 on 01/31/2025 by Ceci Mitchell MD at [facility] Left: Kidney [employer]-[id number] 49 07/02/2027 [id number] / / [id number] Procedures Procedure Name Priority Date/Time Associated Diagnosis Comments POCT GLUCOSE METER UNSOLICITED RESULTS Routine 01/31/2025 11:39 AM EDT FL LESS THAN 1 HOUR (NON-REPORTABLE) Routine 01/31/2025 11:14 AM EDT FUNGAL CULTURE, ROUTINE Routine 01/31/2025 10:23 AM EDT Gross hematuria URINE CULTURE Routine 01/31/2025 10:22 AM EDT Gross hematuria PB ANESTHESIA PLACEHOLDER Routine 01/31/2025 9:58 AM EDT MS AN ELECTIVE ENDOTRACHEAL AIRWAY Routine 01/31/2025 9:58 AM EDT MS CYSTO/URETERO/PYELOSC, BX &/OR FULG LESN 01/31/2025 9:32 [...] 2:27 PM EDT Coronary artery disease involving [place] heart without angina pectoris, unspecified vessel or [...] EDT Hydronephrosis, unspecified hydronephrosis type Urinary retention MS COMPLEX CYSTOMETROGRAM W/VOID PRESS&URETHRAL PROFILE Routine 12/20/2024 10:28 AM EDT Hydronephrosis, unspecified hydronephrosis type Urinary retention INJECTION FOR BLADDER XRAY WITHOUT VOIDING Routine 12/20/2024 10:28 AM EDT Hydronephrosis, unspecified hydronephrosis type Urinary retention POC ULTRASOUND 12/20/2024 ECHO, ADULT TRANSTHORACIC COMPLETE Routine 12/04/2024 1:26 PM EDT Coronary artery disease involving [place] heart without angina pectoris, unspecified vessel or [...] 01/31/2025 11:41 AM EDT [facility] Computer Graphic Artist ID Abbey Medina 01/31/2025 11:41 AM EDT HEALTHCARE LAB Device ID [id number] 01/31/2025 11:41 AM EDT HEALTHCARE LAB Specimen Type POC Capillary 01/31/2025 11:41 AM EDT HEALTHCARE LAB Blood Capillary blood specimen / Unknown 01/31/2025 11:39 AM EDT 01/31/2025 11:41 AM EDT Ceci Mitchell MD LAB POINT OF CARE TE ST DOCKED DEVICE UNSOLICITED RESULTS Final Result Performing Organization Address City/[facility]/ZIP Co de Phone Number [facility] [address] [place], [place] [id number] * FL Less than 1 Hour Intraoperative [...] Growth Maira glabrata(A) 02/08/2025 11:50 AM EDT [facility] Urine Urinary bladder structure / Unknown 01/31/2025 10:23 AM EDT 01/31/2025 11:38 AM EDT Comment:Pre-op diagnosis: Gross hematuria Ceci Mitchell MD LAB MICROBIOLOGY - GENERAL O RDERABLES Final Result Performing Organization Address [facility] [place] [address] * Urine Culture (01/31/2025 10:22 AM EDT) Only the most recent of2 resultswithin the time period is included. Culture No growth at day 1 02/01/2025 8:02 AM EDT [facility] Urine Urinary bladder structure / Unknown 01/31/2025 10:22 AM EDT 01/31/2025 11:38 AM EDT Comment:Pre-op diagnosis: Gross hematuria Ceci Mitchell MD LAB MICROBIOLOGY - GENERAL O RDERABLES Final Result Performing Organization Address [facility] [place] [address] * MS AN ELECTIVE ENDOTRACHEAL AIRWAY, PB ANESTHESIA PLACEHOLDER (01/31/2025 9:58 AM EDT) Narrative Migue Seay CRNA - 01/31/2025 9:58 AM EDT Migue Seay CRNA 01/31/2025 10:45 AM Airway Date/Time: 01/31/2025 9:58 AM Reason: elective Airway not difficult General Information and Staff Patient location during procedure: [facility] CLERK: Migue Seay CRNA Performed: [place]OR[place] Patient Condition [...] following split bolus administration of IV contrast, [id number], 150 mL. Reformatted images in the coronal [...] on 01/03/2025 3:33 PM us Cayla Erazo ROLL HANDLER, DNP IMG CT PROCEDURES Final Result * [...] are demonstrated at the levels of the FUEL TECHNICIAN, GO CART MECHANIC and DPA. Segmental pressures are within normal limits with a GO CART MECHANIC JASEN of 0.98 (138 mmHg) and a DPA JASEN of 1.28 (181 mmHg). Digit pressures are 115 mmHg. Left: AKA is noted. Multiphasic waveforms are demonstrated at the level of the FUEL TECHNICIAN. 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 COMPARISON: None. FINDINGS: Right: Multiphasic waveforms are demonstrated at the levels of the FUEL TECHNICIAN,GO CART MECHANIC and DPA. Segmental pressures are within normal limits with a GO CART MECHANIC ABIof 0.98 (138 mmHg) and a DPA JASEN of 1.28 (181 mmHg). Digit pressures [id number] mmHg. Left: AKA is noted. Multiphasic waveforms are demonstrated at the level ofthe FUEL TECHNICIAN. IMPRESSION: Right: Normal study; No evidence of [...] - 99 mg/dL 12/20/2024 1:19 PM EDT [facility] BUN, Plasma 34(H) 8 - 23 mg/dL 12/20/2024 1:19 PM EDT [facility] Creatinine, Plasma 1.82(H) 0.60 - 1.10 mg/dL 12/20/2024 1:19 PM EDT [facility] BUN/Creatinine Ratio 19 12/20/2024 1:19 PM EDT [facility] Sodium, Plasma 134(L) 136 - 145 mmol/L 12/20/2024 1:19 PM EDT [facility] Potassium, Plasma 4.8 3.6 - 4.9 mmol/L 12/20/2024 1:19 PM EDT [facility] Chloride, Plasma 94(L) 97 - 107 mmol/L 12/20/2024 1:19 PM EDT [facility] CO2, Plasma 28 22 - 29 mmol/L 12/20/2024 1:19 PM EDT [facility] Anion Gap 12 6 - 16 mmol/L 12/20/2024 1:19 PM EDT [facility] Total Calcium, Plasma 10.0 8.9 - 10.2 mg/dL 12/20/2024 1:19 PM EDT [facility] eGFRcr 30.5 mL/min/1.7 3m*2 12/20/2024 1:19 PM EDT [facility] Comment:Reported eGFRcr in m L/min/1.73m2 is based the CKD-EPI 2020 equation that does not use a race coefficient. Blood Venous blood specimen / Unknown Venipuncture / Unknown 12/20/2024 11:54 AM EDT 12/20/2024 11:55 AM EDT us Cayla Erazo APRN, DNP LAB BLOOD ORDERABLES [facility] al Result [facility] [address] [place] [address] * INJECTION FOR BLADDER XRAY WITHOUT VOIDING, MS COMPLEX CYSTOMETROGRAM W/VOID PRESS&URETHRAL PROFILE, UROLOGY UDS WITH BASE PERFORMABLE CHARGES (12/20/2024 10:28 AM EDT) Narrative Cayla Erazo APRN, DNP - 12/20/2024 10:28 AM EDT Cayla Erazo APRN, DNP 01/04/2025 2:40 PM UDS Date/Time: 12/20/2024 10:28 AM Performed by: Cayla Erazo APRN, DNP Authorized by: Cayla Erazo APRN, DNP [place] Protocol: Time out called at: 12/20/2024 10:28 [...] mean PAP 39 mmHg CARLOS ISCV PA MS(ACCEL) 37.4 mmHg CARLOS ISCV PA acc slope [...] is no recent study available for direct rokg-mg-qvtz comparison. us Karly Gracia MD CV ECHO [...] on 11/27/2024 3:49 PM us Cayla Erazo ROLL HANDLER, DNP IMG US PROCEDURES Final Result * Hepatitis C Antibody - ED (08/15/2024 5:35 AM EST) Hepatitis C Antibody Negative Negative 08/15/2024 7:08 AM EST [facility] Blood Venous blood specimen / Unknown Venipuncture / Unknown 08/15/2024 5:35 AM EST 08/15/2024 6:06 AM EST us Marcy Zhong MD LAB BLOOD ORDERABLES Final Resu lt [facility] [address] [place] [address] * (ABNORMAL) Hemoglobin A1c (03/05/2014 7:31 PM [...] Narrative SUNQUEST - 04/10/2013 3:59 PM EDT [facility] MR #: [id number] [facility] YADIRA [place]. [place], [place] [address] 1960 (Age: 52) FW Collect Date: 04/10/2013 00:00 Receipt Date: 04/10/2013 14:23 Page 1 DEPARTMENT OF PATHOLOGY AND LABORATORY MEDICINE CYTOPATHOLOGY REPORT Email: [email or web address] [phone] ATTENDING MD/Practitioner: Kimmie Aguilera MD Service: BCC [...] w/ in-situ carcinoma (+) for ER / MS BCC / FNA performed by: Dr. Jonatan [...] RECEPTOR POSITIVE STATUS (ER POSITIVE) F: A; 54417 ASP INTER, 60779, 20620 SNOMED CODES: A; T91217 V23715 [id number] O71956 U07128 WC5212 P1149 [id number] A resident has participated in this service. A pathologist has performed and is responsible for the reported pathologic evaluation. 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 Yes Care Teams Instructor Bridge Relationship Specialty Start Date End Date Vignesh Pickens MD [address] [place] [address] PCP - General 12/31/24 Cayla Erazo APRN, DNP [address] [place] [address] Nurse Practitioner Urology 12/20/24
--- OUTSIDE RECORDS SUMMARY | 2025-02-20 13:11 | XMS_ITS | Clinical Summary ---
Author Organization [facility] [place] Address [address] [place] [address] Phone Care Team Providers Care Digital Solutions Architect Name Role Phone Foreign Spangler MD, Andrei Al[place] Primary Care Provid er Allergies No known [...] [place] PART A AND B [place] [id number] Care Teams Digital Solutions Architect Relationship Specialty Start Date End Date Andrei Carrasquillo Sr., MD [address] [place] [address] PCP - General Raisin Washer 03/17/16
--- OUTSIDE RECORDS SUMMARY | 2025-02-20 13:11 | XMS_ITS | Encounter Summary ---
Author Organization [facility] Address [address] [place] [address] Care Team Providers Care Medical Office Technology Instructor Name Role Phone Cayla Erazo APRN, DNP Unavailable [phone] Vignesh Pickens MD Primary Care Provider [phone] Encounter Details Date Type Department Care Team (Late st Contact Info) Description 01/16/2025 Telephone [facility] [address] [place] [address] Ceci Mitchell MD [address] [place] [address] Social History Tobacco Use Types [...] any time in the past [address] [facility], were you homeless or living in a nursing home (including now)? No 08/20/2024 CAGE ASSESSMENT [...] first t rodríguez in the morning (EYE-ELECTRICAL MACHINIST) to steady your nerves or to get [...] - 01/16/2025 10:36 AM EDT Spoke with [facility] , scheduled 01/31 surgery with 8am arrival time, facility is aware of anesthesia preop screening call and arrival time call prior to surgery. Urine culture orderto faxed to facility to be completed divya documented in this encounter Plan of Treatment Upcoming Encounters Date Type Department Care Team (Late st Contact Info) Description 03/07/2025 10:00 AM EDT Office Visit [facility] Urology [address] [place] [address] Doug Chapman MD [address] [facility] [place] [address] 03/27/2025 10:30 AM EDT Appointment [facility] Ultrasound [address] [place] [address] 03/27/2025 11:50 AM EDT Clinical Support Medical Office Building Lab [address] [place] [address] 03/27/2025 1:00 PM EDT Office Visit Medical Office Building Urology [address] [facility], [address] [place] [address] Cayla Erazo APRN, FREDERICK [address] [facility] [address] [place] [address] 05/16/2025 8:00 AM EDT Office Visit [facility] [place] [address] [facility], [address] [place] [address] Karly Gracia MD [address] [place] [address] 06/07/2025 1:00 PM EDT Office Visit [facility] [address] [place] [address] Tom Iraheta MD [address] [place] [address] documented as of this encounter [...] documented as of this encounter Care Teams Medical Office Technology Instructor Relationship Specialty Start Date End Date Vignesh Pickens MD [address] [place] [address] PCP - General 12/31/24 Cayla Erazo APRN, DNP [address] [place] [address] Nurse Practitioner Urology 12/20/24 documented as of this encounter
--- OUTSIDE RECORDS SUMMARY | 2025-02-20 13:11 | XMS_ITS | Encounter Summary ---
Author Organization [facility] Address [address] [place] [address] Care Team Providers Care Bag Filler Name Role Phone Cayla Erazo APRN, DNP Unavailable [phone] Vignesh Pickens MD Primary Care Provider [phone] Encounter Details Date Type Department Care Team [...] drink first t rodríguez in the morning (EYE-ACCIDENT REPORT CLERK) to steady your nerves or to [...] [address] [place] [address] Doug Chapman MD [address] [facility] [address] [place] [address] 03/27/2025 10:30 AM EDT Appointment [facility] Ultrasound [address] [place] [address] 03/27/2025 11:50 AM EDT Clinical Support Medical Office Building Lab [address] [place] [address] 03/27/2025 1:00 PM EDT Office Visit Medical Office Building Urology [address] [facility], [address] [place] [address] Cayla Erazo, LIFE SKILLS CONSULTANT, DNP [id number] [place] [address] 05/16/2025 8:00 AM EDT Office Visit [facility] [place] [address] [facility], [address] [place] [address] Karly Gracia MD [address] [place] [address] 06/07/2025 1:00 PM EDT Office Visit [facility] [address] [place] [address] Tom Iraheta MD [address] [place] [address] documented as of this encounter [...] as of this encounter Care Teams Bag Filler Relationship Specialty Start Date End Date Vignesh Pickens MD [address] [place] [address] PCP - General 12/31/24 Cayla Erazo APRN, DNP [address] [place] [address] Nurse Practitioner Urology 12/20/24 documented as of this encounter
--- OUTSIDE RECORDS SUMMARY | 2025-02-20 13:11 | XMS_ITS | Encounter Summary ---
Author Organization [facility] Address [address] [place] [address] Care Team Providers Care Hospital Medicine Director Name Role Phone Cayla Erazo APRN, DNP Unavailable [phone] Vignesh Pickens MD Primary Care Provider [phone] Encounter Details Date Type Department Care Team (Late st Contact Info) Description 01/17/2025 Telephone [facility] [address] [place] [address] Ceci Mitchell MD [address] [place] [address] Social History Tobacco Use Types [...] in the past 12 m [facility], were you homeless or [...] drink first t rodríguez in the morning (EYE-DRYWALL SANDER) to steady your nerves or to get [...] Office [facility] [address] [place] [address] Doug Chapman MD [id number] [place] [address] 03/27/2025 10:30 AM EDT Appointment [facility] Ultrasound [address] [place] [address] 03/27/2025 11:50 AM EDT Clinical Support Medical Office Building Lab [address] [place] [address] 03/27/2025 1:00 PM EDT Office Visit Medical Office Building Urology [address] [facility], [address] [place] [address] Cayla Erazo, HIGH SCHOOL MUSIC INSTRUCTOR, DNP [id number] [place] [address] 05/16/2025 8:00 AM EDT Office Visit [facility] [place] [address] [facility], [address] [place] [address] Karly Gracia MD [address] [place] [address] 06/07/2025 1:00 PM EDT Office Visit [facility] [address] [place] [address] Tom Iraheta MD [address] [place] [address] Scheduled Orders Name Type Priority Associated Diagnoses [...] documented as of this encounter Care Teams Hospital Medicine Director Relationship Specialty Start Date End Date Vignesh Pickens MD [address] [place] [address] PCP - General 12/31/24 Cayla Erazo APRN, FREDERICK [address] [place] [address] Nurse Practitioner Urology 12/20/24 documented as of this encounter
--- OUTSIDE RECORDS SUMMARY | 2025-02-20 13:11 | XMS_ITS | Encounter Summary ---
Author Organization [facility] Address [address] [place] [address] Care Team Providers Care Toy Consultant Name Role Phone Daniel Barba MD Primary Care Provider [phone] Cayla Erazo APRN, FREDERICK Unavailable [phone] Encounter Details Date Type Department Care Team ([facility] st Contact Info) Description 12/20/2024 Orders Only External Location [address] [place] [address] Provider, External Social History Tobacco Use Types [...] time in the past 12 m [facility], were you homeless or living [...] drink first t rodríguez in the morning (EYE-CONE RUNNER) to steady your nerves or to get [...] Description 03/07/2025 10:00 AM EDT Office Visit [facility] Urology [address], 2nd [place] [address] Doug Chapman MD [address] [address] 03/27/2025 10:30 AM EDT Appointment [facility] Ultrasound [address], 2nd [place] [address] 03/27/2025 11:50 AM EDT Clinical Support Medical Office Building Lab [address] [place] [address] 03/27/2025 1:00 PM EDT Office Visit Medical Office Building Urology [address] [facility], [address] [place] [address] Cayla Erazo APRN, DNP [address] [facility] [address] [place] [address] 05/16/2025 8:00 AM EDT Office Visit [facility] [place] [address] [facility], [address] [place] [address] Karly Gracia MD [address] [place] [address] 06/07/2025 1:00 PM EDT Office Visit [facility] [address] [place] [address] Tom Iraheta MD [address] [place] [address] documented as of this encounter [...] documented as of this encounter Care Teams Toy Consultant Relationship Specialty Start Date End Date Daniel Barba MD [address] [place] [address] PCP - General 01/02/21 12/30/24 Cayla Erazo, LIZANDRO, DNP [address] [place] [address] Nurse Practitioner Urology 12/20/24 documented as of this encounter
--- OUTSIDE RECORDS SUMMARY | 2025-02-20 13:11 | XMS_ITS | Clinical Summary ---
Author Organization [employer] ([place], [place], [place], [place]) Address [address] [place] [address] Care Team Providers Care Bookmaker'S Clerk Name Role Phone [facility], Provider Not In The System MD Primary [...] Do you speak a language other than Maldivian at ho me? No 12/09/2023 Do you [...] A1C 11.7 % 11/25/2023 5:31 PM EDT [facility] Comment: Hemoglobin A1C levels are related to mean glucose during the preceding 2-3 months. Less than 7% demonstrates glycemic control in diabetic patients. Hemoglobin AlC % Suggested Diagnosis > or = 6.5 Diabetic 5.7 - 6.4 Prediabetic <5.7 Non-diabetic eAVG Glucose 289.09 mg/dL 11/25/2023 5:31 PM EDT [facility] Blood Venipuncture / Unknown 11/25/2023 11:24 AM EDT 11/25/2023 1:46 PM EDT us Radha Ram MD LAB BLOOD ORDERABLES Fi nal Result [facility] [address] [phone] from Last 3 Months or Most Recently Relevant to Health Maintenance Insurance Critical access hospital [place] [id number] MEDICARE PART A B MEDICAID [place] Advance Directives For more information, please contact: [phone] * Full Code (Latest Code Status on [...] Sister First Alternate Healthcare Decision-Maker Care Teams Bookmaker'S Clerk Relationship Specialty Start Date End Date [facility], Provider Not In The System, [place] [address] PCP - General 10/05/23
--- OUTSIDE RECORDS SUMMARY | 2025-02-20 13:12 | XMS_ITS | Referral Summary ---
Author Organization [employer] ([place], [place]) Address [address] [place] [address] Care Team Providers Care Vegetable Specker Name Role Phone [facility], Provider Not In The System [...] Do you speak a language other than Citizen Of [place] at ho me? No 12/09/2023 Do you [...] A1C 11.7 % 11/25/2023 5:31 PM EDT [facility] Comment: Hemoglobin A1C levels are related to mean glucose during the preceding 2-3 months. Less than 7% demonstrates glycemic control in diabetic patients. Hemoglobin AlC % Suggested Diagnosis > or = 6.5 Diabetic 5.7 - 6.4 Prediabetic <5.7 Non-diabetic eAVG Glucose 289.09 mg/dL 11/25/2023 5:31 PM EDT [facility] Blood Venipuncture / Unknown 11/25/2023 11:24 AM EDT 11/25/2023 1:46 PM EDT Radha Ram MD LAB BLOOD ORDERABLES Fi nal Result [facility] 1 [place] [address], [facility] [phone] from Last 3 Months or Most Recently Relevant to Health Maintenance Insurance MEDICARE PART A B MEDICAID OF [place] Advance Directives For more information, please contact: [phone] * Full Code (Latest Code Status on [...] Sister First Alternate Healthcare Decision-Maker Care Teams Vegetable Specker Relationship Specialty Start Date End Date [facility], Provider Not In The System, [place] [address] PCP - General 10/05/23
--- OUTSIDE RECORDS SUMMARY | 2025-02-20 13:12 | XMS_ITS | Encounter Summary ---
Author Organization [facility] Address [address] [place] [address] Care Team Providers Care Block Making Machine Operator Name Role Phone Daniel Barba MD Primary Care Provider [phone] Judy Huff POCKETBOOK MAKER Unavailable Unavailabl e Cayla Erazo APRN, DNP Unavailable [phone] Vignesh Pickens MD Primary Care Provider [phone] Encounter Details Date Type Department Care Team (Late st Contact Info) Description 07/28/2022 Orders Only External Location [address] [place] [address] Gregg Morgan MD [address] [place] [address] Social History Tobacco Use Types [...] Description 03/07/2025 10:00 AM EDT [facility] [address], 2nd [place] [address] Doug Chapman MD [address] [place] [address] 03/27/2025 10:30 AM EDT Appointment [facility] Ultrasound [address], 2nd [place] [address] 03/27/2025 11:50 AM EDT Clinical Support Medical Office Building Lab [address] [place] [address] 03/27/2025 1:00 PM EDT Office Visit Medical Office Building Urology [address] [facility], [address] [place] [address] Cayla Erazo, REEL STRIPPER, DNP [address] [place] [address] 05/16/2025 8:00 AM EDT Office Visit [facility] [place] [address] [facility], [address] [place] [address] Karly Gracia MD [address] [place] [address] 06/07/2025 1:00 PM EDT Office Visit [facility] [address] [place] [address] Tom Iraheta MD [address] [place] [address] documented as of this encounter [...] documented as of this encounter Care Teams Block Making Machine Operator Relationship Specialty Start Date End Date Daniel Barba MD [address] [place] [address] PCP - General 01/02/21 12/30/24 Vignesh Pickens MD [address] [place] [address] PCP - General 12/31/24 Judy Huff, POCKETBOOK MAKER [facility] TCM Nurse 08/24/24 08/24/24 Cayla Erazo APRN, FREDERICK [address] [facility] [address] [place] [address] Nurse Practitioner Urology 12/20/24 documented as of this encounter
--- OUTSIDE RECORDS SUMMARY | 2025-02-20 13:12 | XMS_ITS | Encounter Summary ---
Author Organization [facility] Address [address] [place] [address] Care Team Providers Care Facilities Flight Check Pilot Name Role Phone Daniel Barba MD Primary Care Provider [phone] Judy Huff CYLINDER BATCHER Unavailable UnavailCayla Carvajal APRN, DNP Unavailable [phone] Vignesh Pickens MD Primary Care Provider + [phone] Encounter Details Date Type Department Care Team (Late Contact Info) Description 08/11/2022 Orders Only External Location [address] [place] [address] Provider, External Social History Tobacco Use Types [...] Description 03/07/2025 10:00 AM EDT Office Visit [facility] [address], 2nd [place] [address] Doug Chapman MD [address] [place] [address] 03/27/2025 10:30 AM EDT Appointment [facility] Ultrasound [address], 2nd [place] [address] 03/27/2025 11:50 AM EDT Clinical Support Medical Office Building Lab [address] [place] [address] 03/27/2025 1:00 PM EDT Office Visit Medical Office Building Urology [address] [facility], [address] [place] [address] Cayla Erazo, SOLVENT PLANT OPERATOR, DNP [address] [place] [address] 05/16/2025 8:00 AM EDT Office Visit [facility] [place] [address] [facility], [address] [place] [address] Karly Gracia MD [address] [place] [address] 06/07/2025 1:00 PM EDT Office Visit [facility] [address] [place] [address] Tom Iraheta MD [address] [place] [address] documented as of this encounter [...] documented as of this encounter Care Teams Facilities Flight Check Pilot Relationship Specialty Start Date End Date Daniel Barba MD [address] [place] [address] PCP - General 01/02/21 12/30/24 Vignesh Pickens MD [address] [place] [address] PCP - General 12/31/24 Judy Huff, CYLINDER BATCHER [facility] Nurse 08/24/24 08/24/24 Cayla Erazo APRN, FREDERICK [id number] [place] [address] Nurse Practitioner Urology 12/20/24 documented as of this encounter
--- OUTSIDE RECORDS SUMMARY | 2025-02-20 13:12 | XMS_ITS | Encounter Summary ---
Author Organization [facility] Address [address] [place] [address] Care Team Providers Care Ceramist Name Role Phone Cayla Erazo APRN, DNP Unavailable [phone] Vignesh Pickens MD Primary Care Provider [phone] Encounter Details Date Type Department Care Team (Late st Contact Info) Description 01/23/2025 Telephone [facility] [address], 2nd [place] [address] Ceci Mitchell MD [address] [place] [address] Social History Tobacco Use Types [...] first t rodríguez in the morning (EYE-WEB MARKETING SPECIALIST) to steady your nerves or to [...] Description 03/07/2025 10:00 AM EDT Office Visit [facility] Urology [address], 2nd [place] [address] Doug Chapman MD [address] [place] [address] 03/27/2025 10:30 AM EDT Appointment [facility] Ultrasound [address], 2nd [place] [address] 03/27/2025 11:50 AM EDT Clinical Support Medical Office Building Lab [address] [place] [address] 03/27/2025 1:00 PM EDT Office Visit Medical Office Building Urology [address] [facility], [address] [place] [address] Cayla Erazo, FIRST LINE PRODUCTION SUPERVISOR, DNP [address] [facility] [address] [place] [address] 05/16/2025 8:00 AM EDT [facility] [place] [address] [facility], [address] [place] [address] Karly Gracia MD [address] [place] [address] 06/07/2025 1:00 PM EDT Office Visit [facility] [address] [place] [address] Tom Iraheta MD [address] [place] [address] documented as of this encounter [...] documented as of this encounter Care Teams Ceramist Relationship Specialty Start Date End Date Vignesh Pickens MD [address] [place] [address] PCP - General 12/31/24 Cayla Erazo APRN, DNP [address] [place] [address] Nurse Practitioner Urology 12/20/24 documented as of this encounter
--- OUTSIDE RECORDS SUMMARY | 2025-02-20 13:12 | XMS_ITS | Encounter Summary ---
Author Organization [facility] Address [address] [place] [address] Care Team Providers Care Health And Physical Education Professor Name Role Phone Cayla Erazo APRN, DNP Unavailable [phone] Vignesh Pickens MD Primary Care Provider [phone] Encounter Details Date Type Department Care Team [...] any time in the past 12 m [facility], were you homeless or living in [...] drink first t rodríguez in the morning (EYE-DIGITAL ACCOUNT EXECUTIVE) to steady your nerves or to get [...] Description 03/07/2025 10:00 AM EDT Office Visit [facility] [address], 2nd [place] [address] Doug Chapman MD [address] [facility] [address] [place] [address] 03/27/2025 10:30 AM EDT Appointment [facility] Ultrasound [address], 2nd [place] [address] 03/27/2025 11:50 AM EDT Clinical Support Medical Office Building Lab [address] [place] [address] 03/27/2025 1:00 PM EDT Office Visit Medical Office Building Urology [address] [facility], [address] [place] [address] Cayla Erazo APRN, FREDERICK [address] [place] [address] 05/16/2025 8:00 AM EDT Office Visit [facility] [place] [address] [facility], [address] [place] [address] Karly Gracia MD [address] [place] [address] 06/07/2025 1:00 PM EDT Office Visit [facility] [address] [place] [address] Tom Iraheta MD [address] [place] [address] documented as of this encounter [...] as of this encounter Care Teams Health And Physical Education Professor Relationship Specialty Start Date End Date Vignesh Pickens MD [id number] PCP - General 12/31/24 Cayla Eraoz APRN, FREDERICK [address] [place] [address] Nurse Practitioner Urology 12/20/24 documented as of this encounter
--- OUTSIDE RECORDS SUMMARY | 2025-02-20 13:12 | XMS_ITS | Encounter Summary ---
Author Organization [facility] Address [address] [place] [address] Care Team Providers Care Controls Operator Molded Goods Name Role Phone Cayla Erazo APRN, DNP Unavailable [phone] Vignesh Pickens MD Primary Care Provider [phone] Encounter Details Date Type Department Care Team [...] were you homeless or living in a fpc (including now)? No 08/20/2024 CAGE ASSESSMENT Answer [...] drink first t rodríguez in the morning (EYE-PAVER INSTALLER) to steady your nerves or to get [...] Description 03/07/2025 10:00 AM EDT Office Visit [facility] Urology [address], 2nd [place] [address] Doug Chapman MD [address] [place] [address] 03/27/2025 10:30 AM EDT Appointment [facility] Ultrasound [address], 2nd [place] [address] 03/27/2025 11:50 AM EDT Clinical Support Medical Office Building Lab [address] [place] [address] 03/27/2025 1:00 PM EDT Office Visit Medical Office Building Urology [address] [facility], [address] [place] [address] Cayla Erazo APRN, DNP [address] [facility] [address] [place] [address] 05/16/2025 8:00 AM EDT Office Visit [facility] [place] [address] [facility], [address] [place] [address] Karly Gracia MD [address] [place] [address] 06/07/2025 1:00 PM EDT Office Visit [facility] [address] [place] [address] Tom Iraheta MD [address] [place] [address] documented as of this encounter [...] documented as of this encounter Care Teams Controls Operator Molded Goods Relationship Specialty Start Date End Date Vignesh Pickens MD [address] [place] [address] PCP - General 12/31/24 Cayla Erazo APRN, DNP [address] [facility] [address] [place] [address] Nurse Practitioner Urology 12/20/24 documented as of this encounter
--- OUTSIDE RECORDS SUMMARY | 2025-02-20 13:12 | XMS_ITS | Encounter Summary ---
Author Organization [facility] Address [address] [place] [address] Care Team Providers Care Engagement Executive Name Role Phone Daniel Barba MD Primary Care Provider [phone] Cayla Erazo APRN, [facility] Unavailable [phone] Vignesh Pickens MD Primary Care Provider [phone] Encounter Details Date Type Department Care Team (Late st Contact Info) Description 10/19/2024 Orders Only External Location [address] [place] [address] Provider, External Social History Tobacco Use Types [...] drink first t rodríguez in the morning (EYE-SEO ANALYST) to steady your nerves or to [...] Upcoming Encounters Date Type Department Care Team ([facility] st Contact Info) Description 03/07/2025 10:00 AM EDT Office Visit [facility] Urology [address], 2nd [place] [address] Doug Chapman MD [address] [place] [address] 03/27/2025 10:30 AM EDT Appointment [facility] Ultrasound [address], 2nd [place] [address] 03/27/2025 11:50 AM EDT Clinical Support Medical Office Building Lab [address] [place] [address] 03/27/2025 1:00 PM EDT Office Visit Medical Office Building Urology [address] [facility], [address] [place] [address] Cayla Erazo, TANK HOUSE OPERATOR HELPER, DNP [address] [place] [address] 05/16/2025 8:00 AM EDT Office Visit [facility] [place] [address] [facility], [address] [place] [address] Karly Gracia MD [address] [place] [address] 06/07/2025 1:00 PM EDT Office Visit [facility] [address] [place] [address] Tom Iraheta MD [address] [place] [address] documented as of this encounter [...] documented as of this encounter Care Teams Engagement Executive Relationship Specialty Start Date End Date Daniel Barba MD [address] [place] [address] PCP - General 01/02/21 12/30/24 Vignesh Pickens MD [address] [place] [address] PCP - General 12/31/24 Cayla Erazo APRN, DNP [address] [place] [address] Nurse Practitioner Urology 12/20/24 documented as of this encounter
== END 2025-02-20 23:59 | disposition home or self-care (01) ==
LOC: LAB.DROPOF 13:09
PROVIDERS: PCP Family Medicine; Visit Provider Family Medicine
DX: R69 Illness, unspecified (principal)

== ENCOUNTER 2025-02-21 10:15 | Outpatient (CLI) | payer MEDICARE, MEDICAID, SELFPAY ==
--- OUTSIDE RECORDS SUMMARY | 2024-12-20 09:20 | XMS_ITS | Encounter Summary ---
Author Organization [facility] Address [address] [place] [address] Care Team Providers Care Ceramic Engineer Name Role Phone Daniel Barba MD Primary Care Provider [phone] Cayla Erazo APRN, DNP Unavailable [phone] Vignesh Pickens MD Primary Care Provider [phone] Reason for Referral * Imaging (Routine) - Closed Specialty Diagnoses / Procedures Referred By Clara stoner Referred To Contact Radiology Diagnoses Gross hematuria Procedures CT Urogram Cayla Erazo APRN, DNP [address] [address] Phone: tel: fax: Referral ID Status Reason Start Date Expiration Date Visits Re quested Visits Authorized [id number] Closed 12/25/2024 06/26/2026 1 1 * Other Medical (Routine) - Pending Review Specialty Diagnoses / Procedures Referred By Clara stoner Referred To Contact Urology Diagnoses Gross hematuria Procedures Cysto- Urology Cayla Erazo APRN, DNP [address] [address] Phone: tel: fax: Referral ID Status Reason Start Date Expiration Date V isits Requested Visits Authorized [id number] Pending Review 12/25/2024 06/26/2026 1 1 * Imaging (Routine) - Authorized Specialty Diagnoses / Procedures Referred By Clara stoner Referred To Contact Radiology Diagnoses Hydronephrosis, unspecified hydronephrosis type Procedures US Renal Complete Cayla Erazo APRN, DNP [address] [address] Phone: tel: fax: Referral ID Status Reason Start Date Expiration Date V isits Requested Visits Authorized [id number] Authorized 12/20/2024 06/21/2026 1 1 Reason for Visit * Reason Comments Female Incontinence * Other Medical (Routine) - Closed Specialty Diagnoses / Procedures Referred By Clara stoner Referred To Contact Urology Diagnoses Hydronephrosis, unspecified hydronephrosis type Urinary retention Procedures UDS Cayla Erazo APRN, DNP [address] [address] Phone: tel: fax: Referral ID Status Reason Start Date Expiration Date Visits Re quested Visits Authorized [id number] Closed 11/08/2024 05/10/2026 1 1 Encounter Details Date Type Department Care Team (Latest Contact Info) Description 12/20/2024 9:20 AM EDT Office Visit [place] [facility] [address], [address] [place] [address] Cayla Erazo APRN, DNP [address] [address] Recurrent UTI (Primary Dx); Hydronephrosis, [...] any time in the past 12 m [facility], were you homeless or living in a snf (including now)? No 08/20/2024 CAGE ASSESSMENT Answer [...] drink first t rodríguez in the morning (EYE-SENIOR SUPPORT ENGINEER) to steady your nerves or to get rid of a hangover? 0 08/15/2024 CAGE Questionnaire Score 0 024 Utilities Answer Date Recorded In the past 12 months has e [employer], gas, oil, or water [employer] threatened to shut off services in your [...] Notes * Progress Notes - Cayla Erazo, BUCKLER AND LACER, DNP - 12/20/2024 9:20 AM EDTAssociated Order(s): UDS Pre-Procedure Diagnose(s): Hydronephrosis, unspecified hydronephrosis type; Urinary retention Post-Procedure Diagnose(s): Hydronephrosis, unspecified hydronephrosis type; Urinary retention [facility] Urology Clinic Note CC: Female Incontinence HPI: Eileen Tovar is a 64 y.o. F who was initially evaluated in Sep 2024 for diagnosis ofbilateral hydronephrosis in Jul 2024 thought to be 2/2 severe constipation. She was treated for UTIwhile inpatient at [facility] and had improvement in renal function and hydronephrosis with indwelling Parekh catheter that was removed prior to discharge to [facility] in [place]. She is a limited historian, presented in a wheelchair, and is accompanied by a staff member from [facility] without further information provided. She was [...] useof LUE. She also has PVD, COPD, [place], and DVT treated with 2 blood thinners. She denies ever being impacted with stool before and reportedly sees an outside urologist/customer response representative who presents to the SNF, but could [...] were no vitals filed for this visit. Compression Molding Machine Setter present during entire exam General: Pleasant, alert, [...] or skin jesus present. Imagin10/05/23: ROMEO at [place] resulted moderate cortical thinning of kidneys and [...] DNP Authorized by: Cayla Erazo APRN, DNP [place] Protocol: Time out called at: 12/20/2024 10:28 [...] Essential (primary) hypertension CAD (coronary artery disease), [place] coronary artery Controlled diabetes mellitus type II without complication Iron deficiency anemia Second hand smoke exposure Acute kidney injury superimposed on CKD ([facility]/HCC) Arthritis Cellulitis of left knee Chronic respiratory failure COPD (chronic obstructive pulmonary disease) ([facility]) Dehydration with hyponatremia Diabetes mellitus ([facility]/HCC) Hyperlipidemia Restrictive lung disease Stroke ([facility]) [place] coma scale total score 13-15, unspecified coma timing Pyelonephritis Kidney infection Acquired absence of leg above knee Stage 3 chronic kidney disease ([facility]/HCC) Type 2 diabetes mellitus with diabetic chronic kidney disease ([facility]/HCC) Peripheral vascular disease, unspecified ([facility]/HCC) Prosthetic joint infection ([facility]/HCC) Unspecified hydronephrosis Vitamin D deficiency, unspecified [...] BREAST SURGERY N/A Breast Surgery Reconstruction from [facility] BREAST SURGERY N/A Breast Surgery from [facility] CHOLECYSTECTOMY N/A Cholecystotomy from [facility] KIDNEY SURGERY N/A Kidney Surgery from [facility] KNEE SURGERY N/A Knee Surgery from [facility] MASTECTOMY N/A Breast Surgery Mastectomy from [facility] SHOULDER SURGERY Right Shoulder Surgery Right from [...] Description 03/07/2025 10:00 AM EDT Office [place] [facility] [address] [place] [phone] Doug Chapman MD [address] [address] 03/27/2025 10:30 AM EDT Appointment [facility] Ultrasound [address], [address] [place] [address] 03/27/2025 11:50 AM EDT Clinical Support Medical Office Building Lab [address] [place] [address] 03/27/2025 1:00 PM EDT Office Visit Medical Office Building Urology [address] [facility], [address] [place] [address] Cayla Erazo APRN, DNP [address] [address] 05/16/2025 8:00 AM EDT Office Visit [facility] [address] [facility], [address] [place] [address] Karly Gracia MD [address] [place] [address] 06/07/2025 1:00 PM EDT Office Visit [facility] [address] [place] [address] Tom Iraheta MD [address] [place] [address] Scheduled Orders Name Type Priority [...] EDT Hydronephrosis, unspecified hydronephrosis type Urinary retention [place] COMPLEX CYSTOMETROGRAM W/VOID PRESS&URETHRAL PROFILE Routine 12/20/2024 [...] following split bolus administration of IV contrast, [id number], 150 mL. Reformatted images in the coronal [...] MD on 01/03/2025 3:33 PM Cayla Erazo BUCKLER AND LACER, DNP IMG CT PROCEDURES Final Result * Urine Culture - Clinic Collect (12/20/2024 2:33 PM EDT) Culture <10,000 CFU/mL Mixed urogenital, fecal, or skin jesus present. 12/21/2024 2:41 PM EDT [facility] Urine Urine specimen / Unknown Non-blood Collection / Unknown 12/20/2024 2:33 PM EDT 12/20/2024 3:16 PM EDT us Cayla Erazo BUCKLER [employer] LACER, DNP LAB MICROBIOLOGY - GENER AL ORDERABLES Final Result [facility] [address] [place] [address] * (ABNORMAL) Basic Metabolic Panel, Plasma (12/20/2024 11:54 AM EDT) Glucose, Plasma 226(H) 74 - 99 mg/dL 12/20/2024 1:19 PM EDT [facility] BUN, Plasma 34(H) 8 - 23 mg/dL 12/20/2024 1:19 PM EDT [facility] Creatinine, Plasma 1.82(H) 0.60 - 1.10 mg/dL 12/20/2024 1:19 PM EDT [facility] BUN/Creatinine Ratio 12/20/2024 1:19 PM EDT [facility] Sodium, Plasma 134(L) 136 - 145 mmol/L 12/20/2024 1:19 PM EDT [facility] Potassium, Plasma 4.8 3.6 - 4.9 mmol/L 12/20/2024 1:19 PM EDT [facility] Chloride, Plasma 94(L) 97 - 107 mmol/L 12/20/2024 1:19 PM EDT [facility] CO2, Plasma 28 22 - 29 mmol/L 12/20/2024 1:19 PM EDT [facility] Anion Gap 12 6 - 16 mmol/L 12/20/2024 1:19 PM EDT [facility] Total Calcium, Plasma 10.0 8.9 - 10.2 mg/dL 12/20/2024 1:19 PM EDT [facility] eGFRcr 30.5 mL/min/1.7 3m*2 12/20/2024 1:19 PM EDT [facility] Comment:Reported eGFRcr in m L/min/1.73m2 is based the CKD-EPI 2020 equation that does not use a race coefficient. Blood Venous blood specimen / Unknown Venipuncture / Unknown 12/20/2024 11:54 AM EDT 12/20/2024 11:55 AM EDT Cayla Erazo APRN, DNP LAB BLOOD ORDERABLES Andi al Result [facility] [address] [place] [address] * INJECTION FOR BLADDER XRAY WITHOUT VOIDING, [place] COMPLEX CYSTOMETROGRAM W/VOID PRESS&URETHRAL PROFILE, UROLOGY UDS WITH BASE PERFORMABLE CHARGES (12/20/2024 10:28 AM EDT) Narrative Cayla Erazo APRN, DNP - 12/20/2024 10:28 AM EDT Cayla Erazo APRN, DNP 01/04/2025 2:40 PM UDS Date/Time: 12/20/2024 10:28 AM Performed by: Cayla Erazo APRN, DNP Authorized by: Cayla Erazo APRN, DNP [place] Protocol: Time out called at: 12/20/2024 10:28 [...] Starting on Hermelinda 12/20/24 at 1034, Until [place] 12/20/24 at 1034, Routine, IntraprocedureIndications:[place] nephrosis, unspecified hydronephrosis type,Urinary retention Given by [...] documented as of this encounter Care Teams Ceramic Engineer Relationship Specialty Start Date End Date Daniel Barba MD [address] [place] [address] PCP - General 01/02/21 12/30/24 Vignesh Pickens MD [address] [place] [address] PCP - General 12/31/24 Cayla Erazo APRN, DNP [address] [place] [phone] Nurse Practitioner Urology 12/20/24 documented as of this encounter
--- OUTSIDE RECORDS SUMMARY | 2024-12-31 14:01 | XMS_ITS | Encounter Summary ---
Author Organization [facility] Address [address] [place] [address] Care Team Providers Care Manager Operations And Procurement Name Role Phone Cayla Erazo APRN, FREDERICK Unavailable [phone] Vignesh Pickens MD Primary Care Provider [phone] Reason for Referral * Imaging (Routine) - Closed Specialty Diagnoses / Procedures Referred By Contac t Referred To Contact Cardiology Diagnoses Coronary artery disease involving [place] heart without angina pectoris, unspecified vessel or lesion type S/P AKA (above knee amputation) bilateral (CMS/HCC) Acute left arterial ischemic stroke, ICA (internal carotid artery) (CMS/HCC) Procedures VAS US Carotid Duplex Bilateral Stent Karly Gracia MD [address] [place] [address] Phone: tel: fax: Referral ID Status Reason Start Date Expiration Date V isits Requested Visits Authorized [id number] Closed Perform Procedure 11/08/2024 05/10/2026 1 1 Reason for Visit * Imaging (Routine) - Closed Specialty Diagnoses / Procedures Referred By Contac t Referred To Contact Cardiology Diagnoses Coronary artery disease involving [place] heart without angina pectoris, unspecified vessel or lesion type S/P AKA (above knee amputation) bilateral (CMS/HCC) Acute left arterial ischemic stroke, ICA (internal carotid artery) (CMS/HCC) Procedures VAS US Carotid Duplex Bilateral Stent Karly Gracia MD [address] [place] [address] Phone: tel: fax: Referral ID Status Reason Start Date Expiration Date V isits Requested Visits Authorized [id number] Closed Perform Procedure 11/08/2024 05/10/2026 1 1 Encounter Details Date Type Department Care Team (Latest Contact Info) Description 12/31/2024 2:01 PM EDT - 12/31/2024 11:59 PM EDT Hospital Encounter [facility] Vascular Lab [address] [facility] 5th Floor [address], [address] [place] [address] Coronary artery disease involving [place] heart without angina pectoris, unspecified vessel or lesion type; S/P AKA (above knee amputation) bilateral ([facility]); Acute left arterial ischemic stroke, ICA (internal carotid artery) ([facility]) Discharge Disposition: Home or Self Care Social [...] any time in the past 12 m [facility], were you homeless or living in a chcf (including now)? No 08/20/2024 CAGE ASSESSMENT Answer [...] drink first t rodríguez in the morning (EYE-STUDENT DRIVING INSTRUCTOR) to steady your nerves or to get rid of a hangover? 0 08/15/2024 CAGE Questionnaire Score 0 024 Utilities Answer Date Recorded In the past 12 months has th e [employer], gas, oil, or water [employer] threatened to shut off services in your [...] Description 03/07/2025 10:00 AM EDT Office Visit [facility] Urology [address], 2nd [place] [address] Doug Chapman MD [address] [address] 03/27/2025 10:30 AM EDT Appointment [facility] Ultrasound [address], 2nd [place] [address] 03/27/2025 11:50 AM EDT Clinical Support [facility] Building Lab [address] [place] [address] 03/27/2025 1:00 PM EDT Office Visit [facility]rology [address] [facility] [facility] [address], [address] [place] [address] Cayla Erazo, ONLINE CONTENT COORDINATOR, DNP [id number] [place] [address] 05/16/2025 8:00 AM EDT Office Visit [facility] [place] [address] [facility], [address] [place] [address] Karly Gracia MD [address] [place] [address] 06/07/2025 1:00 PM EDT Office Visit [place] [id number] [facility] [address] [address] Tom Iraheta MD [address] [place] [address] documented as of this encounter Procedures Procedure Name Priority Date/Time Associated Diagnosis Comments VAS US CAROTID DUPLEX BILATERAL Routine 12/31/2024 2:27 PM EDT Coronary artery disease involving [place] heart without angina pectoris, unspecified vessel or lesion type S/P AKA (above knee amputation) bilateral (CMS/HCC) Acute left arterial ischemic stroke, ICA (internal carotid artery) ([facility]) documented in this encounter Results * VAS [...] Visit Diagnoses Diagnosis Coronary artery disease involving [place] heart without angina pectoris, unspecified vessel or [...] documented as of this encounter Care Teams Manager Operations And Procurement Relationship Specialty Start Date End Date Vignesh Pickens MD [address] [place] [address] PCP - General 12/31/24 Cayla Erazo, LIZANDRO, DNP [address] [place] [address] Nurse Practitioner Urology 12/20/24 documented as of this encounter
--- OUTSIDE RECORDS SUMMARY | 2024-12-31 14:01 | XMS_ITS | Encounter Summary ---
Author Organization [facility] Address [address] [place] [id number] Care Team Providers Care Can Solderer Name Role Phone Cayla Erazo APRN, DNP Unavailable [phone] Vignesh Pickens MD Primary Care Provider [phone] Reason for Referral * Imaging (Routine) - Closed Specialty Diagnoses / Procedures Referred By Clara t Referred To Contact Cardiology Diagnoses S/P AKA (above knee amputation) bilateral (CMS/HCC) Encounter for surgical aftercare following surgery on the circulatory system Procedures VAS Ankle Brachial Index - Segmental Karly Gracia MD [address] [place] [address] Phone: tel: fax: Referral ID Status Reason Start Date Expiration Date V isits Requested Visits Authorized [id number] Closed Perform Procedure 11/08/2024 05/10/2026 1 1 Reason for Visit * Imaging (Routine) - Closed Specialty Diagnoses / Procedures Referred By Clara stoner Referred To Contact Cardiology Diagnoses S/P AKA (above knee amputation) bilateral (CMS/HCC) Encounter for surgical aftercare following surgery on the circulatory system Procedures VAS Ankle Brachial Index - Segmental Karly Gracia MD [address] [place] [address] Phone: tel: fax: Referral ID Status Reason Start Date Expiration Date V isits Requested Visits Authorized [id number] Closed Perform Procedure 11/08/2024 05/10/2026 1 1 Encounter Details Date Type Department Care Team (Latest Contact Info) Description 12/31/2024 2:01 PM EDT - 12/31/2024 11:59 PM EDT Hospital Encounter [facility] Vascular Lab [address] 5[address] Floor [address] [place] [address] S/P AKA (above knee amputation) bilateral (CMS/HCC); [...] any time in the past 12 m [facility], were you homeless or living in a halfway (including now)? No 08/20/2024 CAGE ASSESSMENT Answer [...] drink first t rodríguez in the morning (EYE-NICKEL OPERATOR) to steady your nerves or to get [...] Description 03/07/2025 10:00 AM EDT Office Visit [facility] Urology [address] 2nd [place] [address] Doug Chapman MD [address] [facility] [address] [place] [address] 03/27/2025 10:30 AM EDT Appointment [facility] Ultrasound [address]nd [place] [address] 03/27/2025 11:50 AM EDT Clinical Support Medical Office Building Lab [address] [place] [address] 03/27/2025 1:00 PM EDT Office Visit Medical Office Building Urology [address] [facility], [address] [place] [address] Cayla Erazo, AUTOMATION TENDER, DNP [address] [place] [address] 05/16/2025 8:00 AM EDT Office Visit [facility] [place] [address] [facility], [address] [place] [address] Karly Gracia MD [address] [place] [address] 06/07/2025 1:00 PM EDT Office Visit [address] [place] [address] Tom Iraheta MD [address] [place] [address] documented as of this encounter [...] are demonstrated at the levels of the MULTIPLEX OPERATOR, COLLECTIONS TECHNICIAN and DPA. Segmental pressures are within normal limits with a COLLECTIONS TECHNICIAN JASEN of 0.98 (138 mmHg) and a DPA JASEN of 1.28 (181 mmHg). Digit pressures are 115 mmHg. Left: AKA is noted. Multiphasic waveforms are demonstrated at the level of the MULTIPLEX OPERATOR. 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 COMPARISON: None. FINDINGS: Right: Multiphasic waveforms are demonstrated at the levels of the MULTIPLEX OPERATOR,COLLECTIONS TECHNICIAN and DPA. Segmental pressures are within normal limits with a COLLECTIONS TECHNICIAN ABIof 0.98 (138 mmHg) and a DPA JASEN of 1.28 (181 mmHg). Digit pressures wtw998 mmHg. Left: AKA is noted. Multiphasic waveforms are demonstrated at the level ofthe MULTIPLEX OPERATOR. IMPRESSION: Right: Normal study; No evidence of [...] documented as of this encounter Care Teams Can Solderer Relationship Specialty Start Date End Date Vignesh Pickens MD [address] [place] [address] PCP - General 12/31/24 Cayla Erazo APRN, DNP [address] [facility] [address] [place] [address] Nurse Practitioner Urology 12/20/24 documented as of this encounter
--- OUTSIDE RECORDS SUMMARY | 2024-12-31 16:00 | XMS_ITS | Encounter Summary ---
Author Organization [facility] Address [address] [place] [address] Care Team Providers Care Aboriginal Community Council Member Name Role Phone Cayla Erazo APRN, DNP Unavailable [phone] Vignesh Pickens MD Primary Care Provider [phone] Reason for Referral * Imaging (Routine) - Pending Review Specialty Diagnoses / Procedures Referred By Contac t Referred To Contact Cardiology Diagnoses Asymptomatic bilateral carotid artery stenosis Procedures VAS US Carotid Duplex Bilateral Stent Ro Montaño PA [address] [place] [address] Phone: tel: fax: Referral ID Status Reason Start Date Expiration Date Visits Requested Visits Authorized [id number] Pending Review Perform Procedure 12/31/2024 07/02/2026 1 1 Reason for Visit * Reason Comments Coronary artery disease involving [place] heart without gertrude S/P AKA (above knee amputation) bilatera l Acute left arterial ischemic stroke, ICA (internal carotid * Consultation (Urgent) - Closed Specialty Diagnoses / Procedures Referred By Contact Referred To Contact Vascular Surgery / [facility] Diagnoses Coronary artery disease involving [place] heart without angina pectoris, unspecified vessel or lesion type Karly Gracia MD [address] [place] [address] Phone: tel:[phone] fax:[phone] [facility] [address] [place] [address] Phone: tel: fax: Referral ID Status Reason Start Date Expiration Date V isits Requested Visits Authorized [id number] Closed Specialty Services Required 11/05/2024 05/07/2026 1 1 Encounter Details Date Type Department Care Team (Latest Contact Info) Description 12/31/2024 4:00 PM EDT Office Visit [facility] [address] [place] [address] Bert Canela MD [address] [facility] [address] [place] [address] Asymptomatic bilateral carotid artery stenosis (Primary Dx); PVD (peripheral vascular disease) ([facility]); Hx of AKA (above knee amputation), left ([facility]); History of stroke; Type 2 diabetes mellitus without complication, unspecified whether terminal manager insulin use Social History Tobacco Use Types Packs/Day Years [...] the money to buy more. 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[employer]) to steady your nerves or to get [...] Sign Reading Time Taken Comments Blood Pressure 118/79 12/31/2024 3:06 PM EDT Pulse 84 12/31/2024 2:49 PM EDT Temperature 36.5 C (97.7 F) 12/31/2024 2:49 PM EDT Respiratory Rate - - Oxygen Saturation 95% 12/31/2024 2:49 PM EDT Inhaled Oxygen Concentration - - Weight 85.7 kg (189 lb) 12/31/2024 2:49 PM EDT Height 162.6 cm (5' 4 ) 12/31/2024 2:49 PM EDT Body Mass Index 32.44 12/31/2024 2:49 PM EDT documented in this encounter Miscellaneous Notes * Progress Notes - Ro Montaño PA - 12/31/2024 4:00 PM EDT Dear Vignesh Pickens MD, HPI We had the pleasure of seeing your patient, Eileen Tovar, in clinic today for consult regarding her asymptomatic Carotid Stenosis. As you know, she underwent left ICA stenting in 2013 aftershe suffered an intraoperative stroke during mastectomy. She has not had carotid surveillance in quite some time. 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 She has healed well from this and denies any pain or wounds in the right lower extremity. She is maintained on plavix and statin and presents today for ABIs and carotid duplex. I personally and independently reviewed the Vascular Lab Images from today's visit which showed: ABIs R 1.28 and L AKA Carotid duplex: Right: Mild, irregular, heterogenous plaque is demonstrated [...] bilaterally. Subclavian artery flow is multiphasic, bilaterally. Her chronic comorbid conditions that impact our treatment planning include: Patient Active Problem List Diagnosis Date Noted History of stroke 12/31/2024 Hx of AKA (above knee amputation), left ([facility]) 12/31/2024 PVD (peripheral vascular disease) ([facility]) 12/31/2024 Asymptomatic bilateral carotid artery stenosis 12/31/2024 Other specified cardiac arrhythmias 11/05/2024 Cerebral infarction due to unspecified occlusion or stenosis of left carotid arteries ([facility]) 11/05/2024 Hypertensive chronic kidney disease with stage 1 through stage 4 chronic kidney disease, or unspecified chronic kidney disease 10/12/2024 Urinary incontinence without sensory awareness 10/12/2024 Anemia in chronic kidney disease 10/12/2024 Chronic kidney disease, stage 3a ([facility]) 10/12/2024 Urinary retention 09/26/2024 Recurrent UTI 09/26/2024 Post-menopausal atrophic vaginitis 09/26/2024 Cyst of kidney, acquired 09/21/2024 Insomnia, unspecified 09/21/2024 Pain, unspecified 08/22/2024 Unspecified hydronephrosis 08/21/2024 Tubulo-interstitial nephritis, not specified as acute or chronic 08/21/2024 Other disorders of phosphorus metabolism 08/21/2024 Hypertensive heart and chronic kidney disease with heart failure and stage 1 through stage 4 chronic kidney disease, or unspecified chronic kidney disease ([facility]) 08/21/2024 Glycosuria 08/20/2024 Type 2 diabetes mellitus with diabetic chronic kidney disease ([facility]) 08/19/2024 Other nonspecific abnormal finding of lung field 08/19/2024 Stage 3 chronic kidney disease ([facility]) 08/17/2024 Hydronephrosis with renal and ureteral calculous obstruction 08/17/2024 Kidney infection 08/16/2024 Dave coma scale total score 13-15, unspecified coma timing 08/15/2024 Pyelonephritis 08/15/2024 Unspecified abdominal pain 08/15/2024 Old myocardial infarction 08/15/2024 Calculus of kidney 08/15/2024 Fecal impaction ([facility]) 08/14/2024 Constipation, unspecified 08/14/2024 Headache, unspecified 08/14/2024 Nontoxic single thyroid nodule 07/10/2024 Edema, unspecified 07/02/2024 Tinea unguium 06/07/2024 Pain in right toe(s) 06/07/2024 Pain in left toe(s) 06/07/2024 Disorder of kidney and ureter, unspecified 04/25/2024 Secondary hyperparathyroidism of renal origin ([facility]) 04/09/2024 Dysuria 04/09/2024 Adult failure to thrive 04/02/2024 Vitamin D deficiency, unspecified 12/21/2023 Acquired absence of leg above knee 12/13/2023 Peripheral vascular disease, unspecified ([facility]) 12/13/2023 Weakness 12/13/2023 Unspecified right bundle-branch block 12/09/2023 Other acute postprocedural pain 12/09/2023 Mixed simple and mucopurulent chronic bronchitis ([facility]) 12/05/2023 Other specified disorders of the skin and subcutaneous tissue 11/29/2023 Morbid (severe) obesity due to excess calories ([facility]) 10/31/2023 Atrial premature depolarization 10/08/2023 Hyperkalemia 10/05/2023 Hemiplegia and hemiparesis following cerebral infarction affecting left non- dominant side ([facility])10/04/2023 Dyspnea, unspecified 10/04/2023 Chronic diastolic (congestive) heart failure ([facility]) 10/04/2023 Presence of left artificial knee joint 09/27/2023 Acute kidney injury superimposed on CKD ([facility]) 01/04/2023 Arthritis 01/04/2023 Cellulitis of left knee 01/04/2023 Chronic respiratory failure 01/04/2023 COPD (chronic obstructive pulmonary disease) ([facility]) 01/04/2023 Dehydration with hyponatremia 01/04/2023 Diabetes mellitus ([facility]) 01/04/2023 Hyperlipidemia 01/04/2023 Restrictive lung disease 01/04/2023 Stroke ([facility]) 01/04/2023 Second hand smoke exposure 10/04/2022 Iron deficiency anemia 03/01/2022 Hypotension 06/03/2017 GERD without esophagitis 03/28/2017 CAD (coronary artery disease), [place] coronary artery 03/28/2017 Controlled diabetes mellitus type II without complication 03/28/2017 Proteinuria 03/23/2017 Deep venous thrombosis of lower extremity 02/18/2016 Venous embolism 02/18/2016 Type 2 diabetes mellitus without complication 02/18/2016 Prosthetic joint infection (CMS/HCC) 02/12/2016 Methicillin resistant Staphylococcus aureus infection 02/12/2016 Essential (primary) hypertension 05/21/2013 The following portions of the chart were reviewed this encounter and updated as appropriate: Tobacco Allergies Meds Problems Med Hx Surg Hx Fam Hx Subjective Review of Systems All other systems reviewed and are negative. Objective Physical Exam AAOx3, NAD, sitting in wheelchair, accompanied by friend Normal respiratory effort on room air Palpable radial and ulnar pulses bilaterally RLE: pink, warm, no wounds, palpable pedal pulses LLE: s/p AKA, well-healed CN II-XII grossly intact Assessment/Plan In Summary: Eileen Tovar is a 64 y.o. year old female who we saw today in clinic for PAD and carotid disease. Her ABIs are normal. Carotid duplex s/p left ICA stent shows <50% stenosis of bilateral ICAs. I recommend annual surveillance and she will continue plavix and statin. ER precautions reviewed. Below is a summary of the diagnoses addressed in today's visit and any associated orders: Problem List Items Addressed This Visit Type 2 diabetes mellitus without complication Relevant Medications Artificial Tears ophthalmic solution History of stroke Hx of AKA (above knee amputation), left (CMS/HCC) PVD (peripheral vascular disease) ([facility]) Asymptomatic bilateral carotid artery stenosis - Primary Relevant Orders VAS US Carotid Duplex Bilateral Stent We will see her back for: Follow up in 1 year (on 12/31/2025). The patient was counseled on the importance of: - strict diabetic glucose control - plavix therapy for stroke prevention - statin therapy for control of hyperlipidemia and plaque stabilization - blood pressure monitoring - proper nutrition, exercise and maintaining a healthy weight. Cosigned by Bert Canela MD at 01/07/2025 9:56 AM EDT Associated attestation - Bert Canela MD - 01/07/2025 9:56 AM EDT I attest to being involved in more than half the total time in patient care. documented in this encounter Plan of Treatment Upcoming Encounters Date Type Department Care Team (Late st Contact Info) Description 03/07/2025 10:00 AM EDT Office Visit [facility] [address] [place] [address] Doug Chapman MD [address] [facility] [address] [place] [address] 03/27/2025 10:30 AM EDT Appointment [facility] Ultrasound [address] [place] [id number] 03/27/2025 11:50 AM EDT Clinical Support Medical Office Building Lab [address] [place] [address] 03/27/2025 1:00 PM EDT Office Visit Medical Office Building Urology [address], [address] [place] [address] Cayla Erazo, PHOTOGRAMMETRY AIRPLANE PILOT, DNP [address] [facility] [address] [place] [address] 05/16/2025 8:00 AM EDT Office Visit [facility] [address] [address] [facility], [address] [place] [address] Karly Gracia MD [address] [place] [address] 06/07/2025 1:00 PM EDT Office Visit [facility] [address] [place] [address] Tom Iraheta MD [address] [place] [address] Scheduled Orders Name Type Priority Associated Diagnoses Orde r Schedule VAS US Carotid Duplex Bilateral Stent Vascular Ultrasound Routine Asymptomatic bilateral carotid artery stenosis Expected: 12/31/2025, Expires: 07/03/2026 documented as of this encounter Visit Diagnoses Diagnosis Asymptomatic bilateral carotid artery stenosis- Primary PVD (peripheral vascular disease) (CMS/HCC) Unspecified peripheral vascular disease Hx of AKA (above knee amputation), left (CMS/HCC) History of stroke Transient ischemic attack (TIA), and cerebral infarction without residual deficits Type 2 diabetes mellitus without complication, unspecified whether terminal manager insulin use documented in this encounter Additional Health Concerns [...] documented as of this encounter Care Teams Aboriginal Community Council Member Relationship Specialty Start Date End Date Vignesh Pickens MD [address] [place] [address] PCP - General 12/31/24 Cayla Erazo APRN, FREDERICK [address] [facility] [address] [place] [address] Nurse Practitioner Urology 12/20/24 documented as of this encounter
--- OUTSIDE RECORDS SUMMARY | 2025-01-03 14:15 | XMS_ITS | Encounter Summary ---
Author Organization [facility] Address [address] [place] [address] Care Team Providers Care Enamel Buffer Name Role Phone Cayla Erazo APRN, DNP Unavailable [phone] Vignesh Pcikens MD Primary Care Provider [phone] Reason for Referral * Imaging (Routine) - Closed Specialty Diagnoses / Procedures Referred By Clara stoner Referred To Contact Radiology Diagnoses Gross hematuria Procedures CT Urogram Cayla Erazo APRN, DNP [address] [address] Phone: tel: fax: Referral ID Status Reason Start Date Expiration Date Visits Re quested Visits Authorized [id number] Closed 12/25/2024 06/26/2026 1 1 Reason for Visit * Imaging (Routine) - Closed Specialty Diagnoses / Procedures Referred By Clara stoner Referred To Contact Radiology Diagnoses Gross hematuria Procedures CT Urogram Cayla Erazo APRN, DNP [address] [address] Phone: tel: fax: Referral ID Status Reason Start Date Expiration Date Visits Re quested Visits Authorized [id number] Closed 12/25/2024 06/26/2026 1 1 Encounter Details Date Type Department Care Team (Latest Contact Info) Description 01/03/2025 2:15 PM EDT - 01/03/2025 11:59 PM EDT Hospital Encounter [facility] CT [address] [place] [address] Gross hematuria Discharge Disposition: Home or Self [...] any time in the past 12 m [facility], were you homeless or living in [...] drink first t rodríguez in the morning (EYE-INDEPENDENT DISTRIBUTOR) to steady your nerves or to get rid of a hangover? 0 08/15/2024 CAGE Questionnaire Score 0 024 Utilities Answer Date Recorded In the past 12 months has th e [employer], gas, oil, or water [employer] threatened to shut off services in your [...] Description 03/07/2025 10:00 AM EDT Office Visit [facility]rology [address] [place] [phone] Doug Chapman MD [address] [place] [address] 03/27/2025 10:30 AM EDT Appointment [facility] Ultrasound [address] [place] [address] 03/27/2025 11:50 AM EDT Clinical Support [facility] Lab [address] [place] [id number] 03/27/2025 1:00 PM EDT Office Visit Medical Office Building Urology [address] [facility], [address] [place] [address] Cayla Erazo APRN, FREDERICK [address] [facility] [address] [place] [address] 05/16/2025 8:00 AM EDT Office Visit [facility] [place] [address] [facility], [address] [place] [address] Karly Gracia MD [address] [place] [address] 06/07/2025 1:00 PM EDT Office Visit [facility] [address] [place] [address] Tom Iraheta MD [address] [place] [address] documented as of this encounter [...] following split bolus administration of IV contrast, [id number], 150 mL. Reformatted images in the coronal [...] MD on 01/03/2025 3:33 PM Cayla Erazo CHICLE GRINDER FEEDER, [facility] IMG CT PROCEDURES Final Result documented [...] documented as of this encounter Care Teams Enamel Buffer Relationship Specialty Start Date End Date Vignesh Pickens MD [address] [place] [address] PCP - General 12/31/24 Cayla Erazo APRN, FREDERICK [id number] [place] [address] Nurse Practitioner Urology 12/20/24 documented as of this encounter
--- OUTSIDE RECORDS SUMMARY | 2025-01-24 14:00 | XMS_ITS | Encounter Summary ---
Author Organization [facility] Address [address] [place] [address] Care Team Providers Care Reimbursement Specialist Name Role Phone Cayla Erazo APRN, DNP Unavailable [phone] Vignesh Picekns MD Primary Care Provider [phone] Encounter Details Date Type Department Care Team (Late st Contact Info) Description 01/24/2025 2:00 PM EDT Pre-Admission Testing [facility] [address] [place] [address] Social History Tobacco Use Types Packs/Day Years [...] any time in the past 12 m [facility], were you homeless or living [...] first t rodríguez in the morning (EYE-ENVIRONMENTAL MANAGER) to steady your nerves or to [...] mouth wide, with pt.'s nurse Gabriela at [facility], via phone. . Cardiovascular: CAD (s/p cardiac stents (2018).), carotid artery disease (asymptomatic Bilat. CHAVA. s/p left ICA stent (2013).), CHF (chronic diastolic CHF.), dysrhythmias (Hx RBBB.), hyperlipidemia, past NE and PVD.Does not have angina, atrial fibrillation, [...] Musculoskeletal: arthritis. Does not have multiple sclerosis. [facility] additional comments: Hx Left AKA [...] INR 2.5 to 3.5 Prevention of recurrent NE INR 2.5 to 3.5 INR 03/06/2014 1.0 (NOTE) OPTIMAL INR RANGES FOR PATIENT ON ORAL ANTICOAGULANT THERAPY Prevention of venous thromboembolism INR 2.0 to 3.0 In patients with heart disease: Atrial fibrillation INR 2.0 to 3.0 Valvular heart disease INR 2.0 to 3.0 Tissue heart valves INR 2.0 to 3.0 Mechanical prosthetic valves INR 2.5 to 3.5 Prevention of recurrent NE INR 2.5 to 3.5 INR 03/05/2014 1.0 (NOTE) OPTIMAL INR RANGES FOR PATIENT ON ORAL ANTICOAGULANT THERAPY Prevention of venous thromboembolism INR 2.0 to 3.0 In patients with heart disease: Atrial fibrillation INR 2.0 to 3.0 Valvular heart disease INR 2.0 to 3.0 Tissue heart valves INR 2.0 to 3.0 Mechanical prosthetic valves INR 2.5 to 3.5 Prevention of recurrent NE INR 2.5 to 3.5 Visit Vitals Wt 85.7 kg (189 lb) LMP (LMP Unknown) BMI 32.44 kg/m?? OB Status Postmenopausal Smoking Status Former BSA 1.97 m?? Physical Exam Airway Cardiovascular Dental Pulmonary Neurological (+) hemiplegia Skin Musculoskeletal Extremities Anesthesia Plan ASA 3 Anesthesia technique(s) discussed with the patient/family: general Comment: WAYLON phone screen with pt.'s nurse Gabriela, at [facility]. Discussed withDr. Wood and discussed with Dr. Ceci Mitchell, RE: holding Plavix and Xarelto. Pearl Chopra, SENIOR SCRUM MASTER [1] Past 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: Diagnosis Date Anxiety [...] BREAST SURGERY N/A Breast Surgery Reconstruction from [facility] BREAST SURGERY N/A Breast Surgery from [facility] CHOLECYSTECTOMY N/A Cholecystotomy from [facility] KIDNEY SURGERY N/A Kidney Surgery from [facility] KNEE SURGERY N/A Knee Surgery from [facility] MASTECTOMY N/A Breast Surgery Mastectomy from [facility] SHOULDER SURGERY Right Shoulder Surgery Right from [facility] [5] Allergies Allergen Reactions Sulfa Drugs Anaphylaxis Ultram [Tramadol] Swelling lips swell Hydrocodone Unknown - Patient states they do not know rxn details [facility] is unaware of what reaction. Pedi-Pre Tape [place] [Wound Dressing Adhesive] Rash Wellbutrin [Bupropion] Rash [...] card, photo ID, along with power of power generation technician, guardianship or advanced directives if applicable Do [...] Description 03/07/2025 10:00 AM EDT Office Visit [facility] [address] [place] [address] Doug Chapman MD [address] [place] [address] 03/27/2025 10:30 AM EDT Appointment [facility] [address] [place] [address] 03/27/2025 11:50 AM EDT Clinical Support Medical Office Building Lab [facility] [place] [id number] 03/27/2025 1:00 PM EDT Office Visit Medical Office Building Urology [address] [facility], [address] [place] [address] Cayla Erazo APRN, DNP [address] [place] [address] 05/16/2025 8:00 AM EDT Office Visit [facility] [place] [address] [facility], [address] [place] [address] Karly Gracia MD [address] [place] [address] 06/07/2025 1:00 PM EDT Office Visit [facility] [address] [place] [address] Tom Iraheta MD [address] [place] [address] documented as of this encounter [...] documented as of this encounter Care Teams Reimbursement Specialist Relationship Specialty Start Date End Date Vignesh Pickens MD [address] [place] [address] PCP - General 12/31/24 Cayla Erazo APRN, DNP [address] [place] [address] Nurse Practitioner Urology 12/20/24 documented as of this encounter
--- OUTSIDE RECORDS SUMMARY | 2025-01-31 08:03 | XMS_ITS | Encounter Summary ---
Author Organization [facility] Address [address] [place] [address] Care Team Providers Care Tunnel Worker Name Role Phone Cayla Erazo APRN, DNP Unavailable [phone] Vignesh Pickens MD Primary Care Provider [phone] Reason for Visit * Auth/Cert (Routine) Specialty Diagnoses / Procedures Referred By Contac t Referred To Contact Diagnoses Gross hematuria Gross hematuria Procedures NM CYSTO/URETERO/PYELOSC,BX &/OR FULG LESN URETEROSCOPY, WITH BIOPSY POSSIBLE STENT PLACEMENTS Ceci Mitchell MD [address] [address] Phone: tel: fax: [facility] ROOM [address] [place] [address] Phone: tel: Referral ID Status Reason Start Date Expiration Date Visits Re quested Visits Authorized [id number] 1 1 Encounter Details Date Type Department Care Team (Latest Contact Info) Description 01/31/2025 8:03 AM EDT - 01/31/2025 1:39 PM EDT Hospital Encounter [facility] [address] [place] [address] Ceci Mitchell MD [address] [address] Urinary retention (Primary Dx); Gross [...] any time in the past 12 m [facility], were you homeless or living in a long-term (including now)? No 08/20/2024 CAGE ASSESSMENT Answer [...] drink first t rodríguez in the morning (EYE-PATTERN WHEEL MAKER) to steady your nerves or to get rid of a hangover? 0 08/15/2024 CAGE Questionnaire Score 0 024 Utilities Answer Date Recorded In the past 12 months has e [employer], gas, oil, or water company threatened to [...] confirm your location ahead of your appointment) [facility] Urology Department Clinic at [facility] [address] [facility], 2nd Floor, [facility], [address] [place] [address] Clinic After Hours [facility] Office Building Urology Clinic [facility] [address] [place] [address] Clinic After Hours documented in this encounter [...] POSTOPERATIVE DIAGNOSIS: Same SURGEON: Ceci Mitchell MD RN PAIN MANAGEMENT SURGEON(S): Gerry Cullen DO, Doug Lundy MD [...] the start of the case. A 19 Qatari rigid cystoscope was introduced into the patient's [...] of the renal pelvis. We advanced a [place] catheter over our sensor wire and performed [...] leave stents bilaterally with strings. Used 7 Qatari by 24 cm double-J stents on strings. These were placed without difficulty and intraoperative fluoroscopy was used to confirm appropriate positioning with the proximal curls in the renal pelvises bilaterally in the distal curls in the bladder. An 18 Qatari García catheter was placed at the conclusion [...] Cullen DO PGY-3, Department of Urology Pager: [phone] Cosigned by Ceci Mitchell MD at 01/31/2025 [...] (cerebral infarction) COPD (chronic obstructive pulmonary disease) ([facility]) Depression Fibromyalgia History of falling History of [...] BREAST SURGERY N/A Breast Surgery Reconstruction from [employer] [facility] BREAST SURGERY N/A Breast Surgery from [facility] CHOLECYSTECTOMY N/A Cholecystotomy from [facility] KIDNEY SURGERY N/A Kidney Surgery from [facility] KNEE SURGERY N/A Knee Surgery from [facility] MASTECTOMY N/A Breast Surgery Mastectomy from [facility] SHOULDER SURGERY Right Shoulder Surgery Right from [employer] [facility] [3] No medications prior to admission. [4] Allergies Allergen Reactions Sulfa Drugs Anaphylaxis Ultram [Tramadol] Swelling lips swell Hydrocodone Unknown - Patient states they do not know rxn details [facility] is unaware of what reaction. Pedi-Pre Tape [place] [Wound Dressing Adhesive] Rash Wellbutrin [Bupropion] Rash [...] Office Visit [facility]rology [address], 2nd [place] [address] Doug Chapman MD [address] [place] [address] 03/27/2025 10:30 AM EDT Appointment [facility] Ultrasound [address], 2nd [place] [address] 03/27/2025 11:50 AM EDT Clinical Support Medical Office Building Lab [address] [place] [address] 03/27/2025 1:00 PM EDT Office Visit Medical Office Building Urology [address] [facility], [address] [place] [address] Cayla Erazo, BRISTLE MACHINE OPERATOR, DNP [address] [place] [address] 05/16/2025 8:00 AM EDT Office Visit [facility] [place] [address] [facility], [address] [place] [address] Karly Gracia MD [address] [place] [address] 06/07/2025 1:00 PM EDT Office Visit [facility] [address] [facility] [address] [place] [address] Tom Iraheta MD [address] [place] [address] documented as of this encounter [...] Routine 01/31/2025 10:22 AM EDT Gross hematuria NM CYSTO/URETERO/PYELOS C,BX &/OR FULG LESN 01/31/2025 9:32 [...] Comment 01/31/2025 11:41 AM EDT HEALTHCARE LAB Veneer Jointer Returner ID Abbey Medina 01/31/2025 11:41 AM EDT HEALTHCARE LAB Device ID [id number] 01/31/2025 11:41 AM EDT HEALTHCARE LAB Specimen Type POC Capillary 01/31/2025 11:41 AM EDT HEALTHCARE LAB Blood Capillary blood specimen / Unknown 01/31/2025 11:39 AM EDT 01/31/2025 11:41 AM EDT us Ceci Mitchell MD LAB POINT OF CARE TE ST DOCKED DEVICE UNSOLICITED RESULTS Final Result HEALTHCARE LAB [address] [place] [address] * [place] Less than 1 Hour Intraoperative [...] Growth Maira glabrata(A) 02/08/2025 11:50 AM EDT [facility] Urine Urinary bladder structure / Unknown 01/31/2025 10:23 AM EDT 01/31/2025 11:38 AM EDT Comment:Pre-op diagnosis: Gross hematuria us Ceci Mitchell MD LAB MICROBIOLOGY - GENERAL O RDERABLES Final Result Performing Organization Address City/[facility]/[place] [address] * Urine Culture (01/31/2025 10:22 AM EDT) Pathologist [facility] Culture No growth at day 1 02/01/2025 8:02 AM EDT [facility] Urine Urinary bladder structure / Unknown 01/31/2025 10:22 AM EDT 01/31/2025 11:38 AM EDT Comment:Pre-op diagnosis: Gross hematuria us Ceci Mitchell MD LAB MICROBIOLOGY - GENERAL O RDERABLES Final Result Performing Organization Address [facility] [place] [address] * (ABNORMAL) POCT glucose meter (01/31/2025 8:47 [...] 01/31/2025 8:49 AM EDT [facility] Veneer Jointer Returner ID Khai Jamison 02/01/20 8:49 AM EDT HEALTHCARE LAB Device ID [id number] 01/31/2025 8:49 AM EDT HEALTHCARE LAB Specimen Type POC Capillary 01/31/2025 8:49 AM EDT HEALTHCARE LAB Blood Capillary blood specimen / Unknown 01/31/2025 8:47 AM EDT 01/31/2025 8:49 AM EDT us Ceci Mitchell MD LAB POINT OF CARE TE ST DOCKED DEVICE UNSOLICITED RESULTS Final Result [facility] [address] [place] [address] documented in this encounter Visit Diagnoses Diagnosis [...] Migue Seay CRNA)[id number] (Stopped - Provider: Migue Seya CRNA) PRN Medication Order 01/29/2025 01/30/2025 01/31/2025 [...] documented as of this encounter Care Teams Tunnel Worker Relationship Specialty Start Date End Date Vignesh Pickens MD [address] [place] [address] PCP - General 12/31/24 Cayla Erazo APRN, FREDERICK [id number] [place] [address] Nurse Practitioner Urology 12/20/24 documented as of this encounter
--- OUTSIDE RECORDS SUMMARY | 2025-01-31 08:55 | XMS_ITS | Encounter Summary ---
Author Organization Healthcare Address [address] [place] [address] Care Team Providers Care Retread Builder Name Role Phone Cayla Erazo APRN, DNP Unavailable [phone] Vignesh Pickens MD Primary Care Provider [phone] Reason for Visit * Auth/Cert (Routine) Specialty Diagnoses / Procedures Referred By Contelvie t Referred To Contact Diagnoses Gross hematuria Gross hematuria Procedures UT CYSTO/URETERO/PYELOSC,BX &/OR FULG LESN URETEROSCOPY, WITH BIOPSY POSSIBLE STENT PLACEMENTS Ceci Mitchell MD [address] [address] Phone: tel: fax: [facility] RO[facility] [address] [place] [address] Phone: tel: Referral ID Status Reason Start Date Expiration Date Visits Re quested Visits Authorized [id number] 1 1 Encounter Details Date Type Department Care Team (Late st Contact Info) Description 01/31/2025 8:55 AM EDT - 01/31/2025 10:10 AM EDT Surgery [facility] [address] [place] [address] Ceci Mitchell MD [address] [address] URETEROSCOPY,CYSTOSCOP Y, RETROGRADE PYELOGRAM, BILATERAL STENT PLACEMENT [79925 (CPT )] Surgery Details Date/Time Status Location OR Service Patient Class Case Class Case Type Trauma Case? 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, 2nd Floor, Wing [address], [address] [place] [address] Clinic After Hours [facility] Medical Office Building Urology Clinic [address] [place] [address] Clinic After Hours documented in this encounter [...] POSTOPERATIVE DIAGNOSIS: Same SURGEON: Ceci Mitchell MD METROPOLITAN EDITOR SURGEON(S): Gerry Cullen DO, Doug Lundy MD [...] the start of the case. A 19 Cameroonian rigid cystoscope was introduced into the patient's [...] of the renal pelvis. We advanced a Laporte catheter over our sensor wire and performed [...] leave stents bilaterally with strings. Used 7 Cameroonian by 24 cm double-J stents on strings. These were placed without difficulty and intraoperative fluoroscopy was used to confirm appropriate positioning with the proximal curls in the renal pelvises bilaterally in the distal curls in the bladder. An 18 Cameroonian García catheter was placed at the conclusion [...] Cullen DO PGY-3, Department of Urology Pager: [phone] Cosigned by Ceci Mitchell MD at 01/31/2025 [...] Touchworks KIDNEY SURGERY N/A Kidney Surgery from [facility] KNEE SURGERY N/A Knee Surgery from [facility] MASTECTOMY N/A Breast Surgery Mastectomy from [facility] SHOULDER SURGERY Right Shoulder Surgery Right from [facility] [3] No medications prior to admission. [4] Allergies Allergen Reactions Sulfa Drugs Anaphylaxis Ultram [Tramadol] Swelling lips swell Hydrocodone Unknown - Patient states they do not know rxn details [facility] is unaware of what reaction. Pedi-Pre Tape Jerome [Wound Dressing Adhesive] Rash Wellbutrin [Bupropion] Rash [...] 03/07/2025 10:00 AM EDT Office Visit [facility] Urology [address], 2nd [place] [address] Doug Chapman MD [address] [place] [address] 03/27/2025 10:30 AM EDT Appointment [facility] Ultrasound [address], 2nd [place] [address] 03/27/2025 11:50 AM EDT Clinical Support Medical Office Building Lab [address] [place] [address] 03/27/2025 1:00 PM EDT Office Visit Medical Office Building Urology [address] [facility], [address] [place] [address] Cayla Erazo, CARPET INSTALLER, DNP [address] [place] [address] 05/16/2025 8:00 AM EDT Office Visit [facility] [place] [address] [facility], [address] [place] [address] Karly Gracia MD [address] [place] [address] 06/07/2025 1:00 PM EDT Office Visit [facility] [address] [place] [address] Tom Iraheta MD [address] [place] [address] documented as of this encounter [...] Routine 01/31/2025 10:22 AM EDT Gross hematuria UT CYSTO/URETERO/PYELOS C,BX &/OR FULG LESN 01/31/2025 9:32 [...] Comment 01/31/2025 11:41 AM EDT HEALTHCARE LAB Sawmill Moulder Operator ID Abbey Mednia 01/31/2025 11:41 AM EDT [facility] Device ID [id number] 01/31/2025 11:41 AM EDT [facility] Specimen Type POC Capillary 01/31/2025 11:41 AM EDT [facility] Blood Capillary blood specimen / Unknown 01/31/2025 11:39 AM EDT 01/31/2025 11:41 AM EDT Ceci Mitchell MD LAB POINT OF CARE TE ST DOCKED DEVICE UNSOLICITED RESULTS Final Result [facility] [address] [place] [address] * [place] Less than 1 Hour Intraoperative (01/31/2025 11:14 AM EDT) Narrative IMAGING - 01/31/2025 11:15 AM EDT Images were obtained for surgical purposes. See Ceci Mitchell's surgical note in the patient's chart for the findings. us Ceci Mitchell MD IMG FLUOROSCOPY PROCEDURES F inal Result Performing Organization Address City/[facility] Co de Phone Number IMAGING * (ABNORMAL) Fungal Culture, Routine (01/31/2025 10:23 AM EDT) Culture Confluent Growth Maira glabrata(A) 02/08/2025 11:50 AM EDT [facility] Urine Urinary bladder structure / Unknown 01/31/2025 10:23 AM EDT 01/31/2025 11:38 AM EDT Comment:Pre-op diagnosis: Gross hematuria us Ceci Mitchell MD LAB MICROBIOLOGY - GENERAL O RDERABLES Final Result Performing Organization Address [facility] de Phone Number [facility] [address] [place] [address] * Urine Culture (01/31/2025 10:22 AM EDT) Culture No growth at day 1 02/01/2025 8:02 AM EDT [facility] Urine Urinary bladder structure / Unknown 01/31/2025 10:22 AM EDT 01/31/2025 11:38 AM EDT Comment:Pre-op diagnosis: Gross hematuria us Ceci Mitchell MD LAB MICROBIOLOGY - GENERAL O RDERABLES Final Result Performing Organization Address [facility] Co hi Phone Number [facility] [address] [place] [address] * (ABNORMAL) POCT glucose meter (01/31/2025 8:47 AM EDT) POCT Glucose 135(H) 74 - 99 mg/dL 01/31/2025 8:49 AM EDT [facility] Comment:Accuracy of a glucos e result [...] Comment 01/31/2025 8:49 AM EDT HEALTHCARE LAB Sawmill Moulder Operator ID Khai Jamison 02/01/20 8:49 AM EDT HEALTHCARE LAB Device ID [id number] 01/31/2025 8:49 AM EDT HEALTHCARE LAB Specimen Type POC Capillary 01/31/2025 8:49 AM EDT HEALTHCARE LAB Blood Capillary blood specimen / Unknown 01/31/2025 8:47 AM EDT 01/31/2025 8:49 AM EDT us Ceci Mitchell MD LAB POINT OF CARE TE ST DOCKED DEVICE UNSOLICITED RESULTS Final Result HEALTHCARE LAB [address] [place] [address] documented in this encounter Visit Diagnoses Diagnosis [...] documented as of this encounter Care Teams Retread Builder Relationship Specialty Start Date End Date Vignesh Pickens MD [address] [place] [address] PCP - General 12/31/24 Cayla Erazo APRN, FREDERICK [address] [facility] [address] [place] [address] Nurse Practitioner Urology 12/20/24 documented as of this encounter
--- OUTSIDE RECORDS SUMMARY | 2025-01-31 09:48 | XMS_ITS | Encounter Summary ---
Author Organization Healthcare Address [address] [place] [address] Care Team Providers Care Event Coordinator Marketing And Sales Name Role Phone Cayla Erazo APRN, FREDERICK Unavailable [phone] Vignesh Pickens MD Primary Care Provider [phone] Reason for Visit * Auth/Cert (Routine) Specialty Diagnoses / Procedures Referred By Clara stoner Referred To Contact Diagnoses Gross hematuria Gross hematuria Procedures CO CYSTO/URETERO/PYELOSC,BX &/OR FULG LESN URETEROSCOPY, WITH BIOPSY POSSIBLE STENT PLACEMENTS Ceci Mitchell MD [address] [facility] [address] [place] [address] Phone: tel: fax: P[facility] OPERATING ROOM [address] [place] [address] Phone: tel: Referral ID Status Reason Start Date Expiration Date Visits Re quested Visits Authorized [id number] 1 1 Encounter Details Date Type Department Care Team (Late st Contact Info) Description 01/31/2025 9:48 AM EDT Anesthesia Event [facility] RO[facility] [address] [place] [id number] Nj Sears MD [address] [place] [address] Anesthesia Record Procedure Summary Procedure [...] Drains, and Airways Type Details Placement Removal Urethral Catheter Placement Date: 01/20 10/16; Placement Time: 1054; Inserted by: Dr. Mitchell; Type: Latex, Double-lumen; Size: 18 Fr.; Balloon Size: 10 mL; Urine Returned: Yes 01/31/25 1054 by Toan Cadet RN Wound 08/15/24; 1417; Y; Y es; Pressure inj; Deep Tissue Injury; Coccyx; 02/17/25 (Removed automatically on 02/17/2025 because of a prolonged period with no assessments.); 2248; No Documenta 08/15/24 1417 by Lizette De La Cruz RN 02/17/25 2248 by Ip, Background User Peripheral IV Placement Date: 01/20 10/16; Placement Time: 0935; Catheter Size: 20 G; Orientation: Posterior, Right; Location: Hand; Site Prep: Chlorhexidine ; Local Anesth: [place]; Technique: Anatomical landmarks; Inserted by: james [...] No change to dentition. ; Placed by: LASTEX OPERATOR; Removal Date: 01/31/25; Removal Time: 1122 01/31/25 0958 by Migue Seay CRNA 01/31/25 112 by Migue Seay CRNA documented in this encounter Social History Tobacco [...] any time in the past 12 m [facility], were you homeless or living in [...] drink first t rodríguez in the morning (EYE-JOINT FINISHER) to steady your nerves or to get rid of a hangover? 0 08/15/2024 CAGE Questionnaire Score 0 024 Utilities Answer Date Recorded In the past 12 months has e [employer], gas, oil, or water [facility] [employer] threatened to shut off services in your [...] No 01/31/2025 8:50 AM EDT Jovita Orosco, JIMI 6. Suicidal Behavior (Lifetime) No 8:50 AM EDT Jovita Orosco, JIMI documented as of this encounter Miscellaneous Notes [...] and Staff Patient location during procedure: OR LASTEX OPERATOR: Migue Seay CRNA Performed: LASTEX OPERATOR Patient Condition Indications for airway management: anesthesia [...] included. Patient: Eileen Tovar Procedure Information Date/Time: 01/31/25854 Procedure: URETEROSCOPY, WITH BIOPSY POSSIBLE STENT PLACEMENTS (Bilateral) Location: [address] / [place] Surgeons: Ceci Mitchell MD Department of [...] were no vitals filed for this visit. [place] body weight: 54.7 kg (120 lb 9.5 [...] Abnormal Ventricular Rate 77 Atrial Rate 77 CO Interval 180 QRSD Interval 124 QT Interval 416 QTC Interval 470 P [place] 23 R [place] 268 T Wave [place] 67 Diagnosis Normal sinus rhythm Diagnosis Right [...] valvular disease. PFTs No results found for: [id number] , [id number] , [id number] , FVCPRED Relevant Problems Cardio (+) Asymptomatic bilateral carotid artery stenosis (+) Atrial premature depolarization (+) CAD (coronary artery disease), [place] coronary artery (+) Deep venous thrombosis of lower extremity (+) Dyspnea, unspecified (+) Essential (primary) hypertension (+) Old myocardial infarction (+) Other specified cardiac arrhythmias (+) PVD (peripheral vascular disease) ([facility]) (+) Peripheral vascular disease, unspecified ([facility]) (+) Unspecified right bundle-branch block (+) Venous embolism Endo (+) Controlled diabetes mellitus type II without complication (+) Nontoxic single thyroid nodule (+) Type 2 diabetes mellitus with diabetic chronic kidney disease ([facility]) (+) Type 2 diabetes mellitus without complication GI (+) Fecal impaction ([facility]) (+) GERD without esophagitis (+) Morbid (severe) obesity due to excess calories ([facility]) /Renal (+) Acute kidney injury superimposed on CKD ([facility]) (+) Calculus of kidney (+) Chronic kidney disease, stage 3a ([facility]) (+) Cyst of kidney, acquired (+) Hydronephrosis with renal and ureteral calculous obstruction (+) Hypertensive chronic kidney disease with stage 1 through stage 4 chronic kidney disease, or unspecified chronic kidney disease (+) Hypertensive heart and chronic kidney disease with heart failure and stage 1 through stage 4 chronic kidney disease, or unspecified chronic kidney disease ([facility]) (+) Kidney infection (+) Pyelonephritis (+) Recurrent UTI (+) Stage 3 chronic kidney disease ([facility]) (+) Tubulo-interstitial nephritis, not specified as acute or chronic (+) Type 2 diabetes mellitus with diabetic chronic kidney disease ([facility]) (+) Unspecified hydronephrosis Neuro/Psych (+) Headache, unspecified (+) Hx of AKA (above knee amputation), left ([facility]) (+) Stroke ([facility]) Pulmonary (+) COPD (chronic obstructive pulmonary disease) ([facility]) (+) Mixed simple and mucopurulent chronic bronchitis ([facility]) Other (+) Arthritis Anesthesia Evaluation Clinical information reviewed: NPO Status Physical Exam Airway Mallampati: III Mouth opening: normal TM distance: <3 FB Neck ROM: full Cardiovascular Rhythm: regular Rate: normal Dental Pulmonary Comments: Symmetric chest rise, moving air bilat, no increased wob Neurological Skin Musculoskeletal Extremities Anesthesia Plan ASA 3 Plan was reviewed with: LASTEX OPERATOR Anesthesia technique(s) discussed with the patient/family: general [...] Date Anxiety Breast cancer Cerebral infarction, unspecified ([facility]) CVA (cerebral infarction) COPD (chronic obstructive pulmonary disease) ([facility]) Depression Fibromyalgia History of falling [...] BREAST SURGERY N/A Breast Surgery Reconstruction from [facility] BREAST SURGERY N/A Breast Surgery from [facility] CHOLECYSTECTOMY N/A Cholecystotomy from [facility] KIDNEY SURGERY N/A Kidney Surgery from [facility] KNEE SURGERY N/A Knee Surgery from [facility] MASTECTOMY N/A Breast Surgery Mastectomy from [facility] SHOULDER SURGERY Right Shoulder Surgery Right from [facility] [3] Allergies Allergen Reactions Sulfa Drugs Anaphylaxis Ultram [Tramadol] Swelling lips swell Hydrocodone Unknown - Patient states they do not know rxn details [facility] is unaware of what reaction. Pedi-Pre Tape [place] [Wound Dressing Adhesive] Rash Wellbutrin [Bupropion] [...] Description 03/07/2025 10:00 AM EDT Office Visit [facility] [address], [address] [place] [address] Doug Chapman MD [id number] [place] [address] 03/27/2025 10:30 AM EDT Appointment [facility] Ultrasound [address], [address] [place] [address] 03/27/2025 11:50 AM EDT Clinical Support Medical Office Building Lab [address] [place] [address] 03/27/2025 1:00 PM EDT Office Visit Medical [facility] Building Urology [address] [facility], [address] [place] [address] Cayla Erazo, MUD LOGGER, DNP [id number] [place] [address] 05/16/2025 8:00 AM EDT Office Visit [facility] [place] [address] [facility], [address] [place] [address] Karly Gracia MD [address] [place] [address] 06/07/2025 1:00 PM EDT Office Visit [place] [address] [facility] [address] [place] [address] Tom Iraheta MD [address] [place] [address] documented as of this encounter Goals Goal Patient Goal Type Associated Problems Recent Progress Patient-Stated? Author Autogenerat ed Goal Care Plan Autogenerated Problem No Eugenia Hodge documented as of this encounter Procedures Procedure Name Priority Date/Time Associated Diagnosis Comments PB ANESTHESIA PLACEHOLDER Routine 01/31/2025 9:58 AM EDT CO AN ELECTIVE ENDOTRACHEAL AIRWAY Routine 01/31/2025 9:58 AM EDT documented in this encounter Results * CO AN ELECTIVE ENDOTRACHEAL AIRWAY, PB ANESTHESIA PLACEHOLDER (01/31/2025 9:58 AM EDT) Narrative Migue Saey CRNA - 01/31/2025 9:58 AM EDT Migue Seay CRNA 01/31/2025 10:45 AM Airway Date/Time: 01/31/2025 9:58 AM Reason: elective Airway not difficult General Information and Staff Patient location during procedure: OR LASTEX OPERATOR: Migue Seay CRNA Performed: LORETTA Patient Condition [...] documented as of this encounter Care Teams Event Coordinator Marketing And Sales Relationship Specialty Start Date End Date Vignesh Pickens MD [address] [facility] [place] [address] PCP - General 12/31/24 Cayla Erazo, MUD LOGGER, DNP [address] [facility] [address] [place] [address] Nurse Practitioner Urology 12/20/24 documented as of this encounter
--- OUTSIDE RECORDS SUMMARY | 2025-02-21 10:19 | XMS_ITS | Clinical Summary ---
Author Organization [employer] ([place], [place], [place], [place]) Address [address] [place] [address] Care Team Providers Care Receiving Clerk Name Role Phone [facility], Provider Not In The System MD Primary [...] Do you speak a language other than Taiwanese at ho me? No 12/09/2023 Do you [...] A1C 11.7 % 11/25/2023 5:31 PM EDT [facility] Comment: Hemoglobin A1C levels are related to mean glucose during the preceding 2-3 months. Less than 7% demonstrates glycemic control in diabetic patients. Hemoglobin AlC % Suggested Diagnosis > or = 6.5 Diabetic 5.7 - 6.4 Prediabetic <5.7 Non-diabetic eAVG Glucose 289.09 mg/dL 11/25/2023 5:31 PM EDT [facility] Blood Venipuncture / Unknown 11/25/2023 11:24 AM EDT 11/25/2023 1:46 PM EDT us Radha Ram MD LAB BLOOD ORDERABLES Fi nal Result [facility] [address] [phone] from Last 3 Months or Most Recently Relevant to Health Maintenance Insurance [facility] [place] [id number] MEDICARE PART A B [place] Advance Directives For more information, please contact: [phone] * Full Code (Latest Code Status on [...] Sister First Alternate Healthcare Decision-Maker Care Teams Receiving Clerk Relationship Specialty Start Date End Date [facility], Provider Not In The System, [place] [address] PCP - General 10/05/23
--- OUTSIDE RECORDS SUMMARY | 2025-02-21 10:20 | XMS_ITS | Encounter Summary ---
Author Organization [facility] Address [address] [place] [address] Care Team Providers Care County Director Welfare Name Role Phone Cayla Erazo APRN, DNP Unavailable [phone] Vignesh Pickens MD Primary Care Provider [phone] Encounter Details Date Type Department Care Team [...] in the past 12 m [facility], were you homeless or living in a [place] [facility] (including now)? No 08/20/2024 CAGE ASSESSMENT Answer [...] drink first t rodríguez in the morning (EYE-TENT WORKER) to steady your nerves or to [...] Description 03/07/2025 10:00 AM EDT Office Visit [facility] [address] 2nd [place] [address] Doug Chapman MD [address] [facility] [address] [place] [address] 03/27/2025 10:30 AM EDT Appointment [facility] Ultrasound [address], 2nd [place] [address] 03/27/2025 11:50 AM EDT Clinical Support Medical Office Building Lab [address] [place] [address] 03/27/2025 1:00 PM EDT Office Visit Medical Office Building Urology [address] [facility], [address] [place] [address] Cayla Erazo, LAY OUT MAKER, DNP [address] [place] [address] 05/16/2025 8:00 AM EDT Office Visit [facility] [place] [address] [facility], [address] [place] [address] Karly Gracia MD [address] [place] [address] 06/07/2025 1:00 PM EDT Office Visit [facility] [address] [place] [address] Tom Iraheta MD [address] [place] [address] documented as of this encounter [...] documented as of this encounter Care Teams County Director Welfare Relationship Specialty Start Date End Date Vignesh Pickens MD [address] [place] [address] PCP - General 12/31/24 Cayla Erazo APRN, DNP [address] [place] [address] Nurse Practitioner Urology 12/20/24 documented as of this encounter
--- OUTSIDE RECORDS SUMMARY | 2025-02-21 10:20 | XMS_ITS | Clinical Summary ---
Author Organization [facility] Address [address] [place] [address] Phone Care Team Providers Care Operations Analyst Name Role Phone Foreign Spangler MD, Andrei Divide Primary Care Provid er Allergies No known [...] [place] A [place] B [place] [id number] Care Teams Operations Analyst Relationship Specialty Start Date End Date Andrei Carrasquillo Sr., MD [address] [place] [address] PCP - General Skiver Operator 03/17/16
--- OUTSIDE RECORDS SUMMARY | 2025-02-21 10:20 | XMS_ITS | Encounter Summary ---
Author Organization [facility] Address [address] [place] [address] Care Team Providers Care Band Machine Operator Name Role Phone Cayla Erazo APRN, DNP Unavailable [phone] Vignesh Pickens MD Primary Care Provider [phone] Encounter Details Date Type Department Care Team (Late st Contact Info) Description 01/16/2025 Telephone [facility] [address], [address] [place] [address] Ceci Mitchell MD [address] [place] [address] Social History Tobacco Use Types [...] any time in the past 12 m [facility], were you homeless or [...] drink first t rodríguez in the morning (EYE-VEST MAKER) to steady your nerves or to [...] - 01/16/2025 10:36 AM EDT Spoke with [facility] , scheduled 01/31 surgery with 8am arrival time, facility is aware of anesthesia preop screening call and arrival time call prior to surgery. Urine culture orderto faxed to facility to be completed divya documented in this encounter Plan of Treatment Upcoming Encounters Date Type Department Care Team (Late st Contact Info) Description 03/07/2025 10:00 AM EDT Office Visit [facility] [address] [place] [address] Doug Chapman MD [address] [facility] [place] [address] 03/27/2025 10:30 AM EDT Appointment [facility] Ultrasound [address], [address]nd [place] [address] 03/27/2025 11:50 AM EDT Clinical Support Medical Office Building Lab [address] [place] [address] 03/27/2025 1:00 PM EDT Office Visit Medical Office Building Urology [address] [facility], [address] [place] [address] Cayla Erazo APRN, FREDERICK [address] [facility] [address] [place] [address] 05/16/2025 8:00 AM EDT Office Visit [facility] [place] [address] [facility], [address] [place] [address] Karly Gracia MD [address] [place] [address] 06/07/2025 1:00 PM EDT [facility] [address] [place] [address] Tom Iraheta MD [address] [place] [address] documented as of this encounter [...] documented as of this encounter Care Teams Band Machine Operator Relationship Specialty Start Date End Date Vignesh Pickens MD [address] [place] [address] PCP - General 12/31/24 Cayla Erazo APRN, DNP [address] [place] [address] Nurse Practitioner Urology 12/20/24 documented as of this encounter
--- OUTSIDE RECORDS SUMMARY | 2025-02-21 10:20 | XMS_ITS | Encounter Summary ---
Author Organization [facility] Address [address] [place] [address] Care Team Providers Care Skilled Trades Teacher Name Role Phone Cayla Erazo APRN, DNP Unavailable Vignesh Pickens MD Primary Care Provider [phone] Encounter Details Date Type Department Care Team (Late st Contact Info) Description 01/17/2025 Telephone [facility] [address], [address]nd [place] [address] Ceci Mitchell MD [address] [place] [address] Social History Tobacco Use Types [...] any time in the past 12 m [facility], were you homeless or living in a group home (including now)? No 08/20/2024 CAGE ASSESSMENT [...] drink first t rodríguez in the morning (EYE-SQL CONSULTANT) to steady your nerves or to [...] Office Visit [facility] [address], [address] [place] [address] Doug Chapman MD [id number] [place] [address] 03/27/2025 10:30 AM EDT Appointment [facility] Ultrasound [address], 2nd [place] [address] 03/27/2025 11:50 AM EDT Clinical Support Medical Office Building Lab [address] [place] [address] 03/27/2025 1:00 PM EDT Office Visit Medical Office Building Urology [address] [facility], [address] [place] [address] Cayla Erazo, HYDROELECTRIC MACHINERY MECHANIC, DNP [address] [place] [address] 05/16/2025 8:00 AM EDT Office Visit [facility] [place] [address] [facility], [address] [place] [address] Karly Gracia MD [address] [place] [address] 06/07/2025 1:00 PM EDT Office Visit [facility] [address] [place] [address] Tom Iraheta MD [address] [place] [address] Scheduled Orders Name Type Priority Associated Diagnoses [...] documented as of this encounter Care Teams Skilled Trades Teacher Relationship Specialty Start Date End Date Vignesh Pickens MD [address] [place] [address] PCP - General 12/31/24 Cayla Erazo APRN, FREDERICK [address] [place] [address] Nurse Practitioner Urology 12/20/24 documented as of this encounter
--- OUTSIDE RECORDS SUMMARY | 2025-02-21 10:20 | XMS_ITS | Encounter Summary ---
Author Organization [facility] Address [address] [place] [address] Care Team Providers Care Forensic Social Worker Name Role Phone Cayla Erazo APRN, DNP Unavailable [phone] Vignesh Pickens MD Primary Care Provider [phone] Encounter Details Date Type Department Care Team [...] drink first t rodríguez in the morning (EYE-CONSUMER ELECTRONICS MERCHANDISER) to steady your nerves or to get [...] [facility] Urology [address], [address] [place] [address] Doug Chapman MD [id number] [place] [address] 03/27/2025 10:30 AM EDT Appointment [facility] Ultrasound [address], 2nd [place] [address] 03/27/2025 11:50 AM EDT Clinical Support Medical Office Building Lab [address] [place] [address] 03/27/2025 1:00 PM EDT Office Visit Medical Office Building Urology [address] [facility], [address] [place] [address] Cayla Erazo APRN, DNP [address] [facility] [address] [place] [address] 05/16/2025 8:00 AM EDT Office Visit [facility] [place] [address] [facility], [address] [place] [address] Karly Gracia MD [address] [place] [address] 06/07/2025 1:00 PM EDT Office Visit [facility] [address] [place] [address] Tom Iraheta MD [address] [place] [address] documented as of this encounter [...] documented as of this encounter Care Teams Forensic Social Worker Relationship Specialty Start Date End Date Vignesh Pickens MD [address] [place] [address] PCP - General 12/31/24 Cayla Erazo APRN, DNP [address] [facility] [address] [place] [address] Nurse Practitioner Urology 12/20/24 documented as of this encounter
--- OUTSIDE RECORDS SUMMARY | 2025-02-21 10:20 | XMS_ITS | Clinical Summary ---
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) 54097118 (SNOMED CT) 10/25 Active 10/25 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 Benign hypertension Presence of left artificial knee joint Z96.652 (ICD-10-CM ) 10/25 Active 10/25 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 Presence of left artificial knee joint Hx of MRSA infection 733515514 (SNOMED CT) 10/25 Active 10/25 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 H/O: infectious disease Hx of malignant neoplasm of breast 840347748 (SNOMED CT) 03/02 Resolved 03/02 Heeln Salazar History of malignant neoplasm of breast Cellulitis of left leg 606505697 (SNOMED CT) 03/02 Resolved 03/02 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 Cellulitis of lower limb ocean transportation intermediary (current) use of suppressive antibiotics Z79.2 (ICD-10-CM ) 01/14 Inactive 01/14 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 senior care (current) use of antibiotics Anemia in chronic diseases(docu ment disease) D63.8 (ICD-10-CM ) 01/14 Active 01/14 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 Anemia in other chronic diseases classified elsewhere Chronic respiratory failure with hypoxia 48499606 (SNOMED CT) 01/14 Active 01/14 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 Acute respiratory failure COPD 09648273 (SNOMED CT) 01/14 Active 01/14 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 Chronic obstructive pulmonary disease DM Type II E11.9 (ICD-10-CM ) 01/14 Inactive 01/14 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 Type 2 diabetes mellitus without complications Benign Essential Hypertension 50730360 (SNOMED CT) 01/14 Removed 01/14 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 Benign hypertension Acquired absence of left knee joint 516106129 (SNOMED CT) 03/02 Resolved 03/02 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 History of operative procedure on knee Obesity due to excess calories E66.09 (ICD-10-CM ) 03/02 Resolved 03/02 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 Other obesity due to excess calories ocean transportation intermediary (current) use of anticoagulant s Z79.01 (ICD-10-CM ) 03/02 Resolved 03/02 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 ocean transportation intermediary (current) use of anticoagulants Staph epi infection B95.7 (ICD-10-CM ) 03/02 Resolved 03/02 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 Other staphylococcus as the cause of diseases classified elsewhere Diarrhea 10734866 (SNOMED CT) 09/28 Resolved 09/28 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 Diarrhea Staph hominis infection B95.7 (ICD-10-CM ) 09/28 Resolved 09/28 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 Other staphylococcus as the cause of diseases classified elsewhere Staph hominis infection B95.7 (ICD-10-CM ) 09/28 Removed 09/28 Arie Dougherty MD Other staphylococcus as the cause of diseases classified elsewhere Diarrhea 27996614 (SNOMED CT) 09/28 Removed 09/28 Arie Dougherty MD Diarrhea Acquired absence of left knee joint 356663007 (SNOMED CT) 03/02 Removed 03/02 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 History of operative procedure on knee Cellulitis of left leg 123612833 (SNOMED CT) 03/02 Removed 03/02 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 Cellulitis of lower limb Knee, left, subsequent encounter, infection/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 T84.54xD (ICD-10-CM ) 03/02 Active 03/02 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 Infection and inflammatory reaction due to internal left knee prosthesis, subsequent encounter Staph epi infection B95.7 (ICD-10-CM ) 03/02 Removed 03/02 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 Other staphylococcus as the cause of diseases classified elsewhere ocean transportation intermediary (current) use of anticoagulant s Z79.01 (ICD-10-CM ) 03/02 Removed 03/02 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 senior care (current) use of anticoagulants Obesity due to excess calories E66.09 (ICD-10-CM ) 03/02 Removed 03/02 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 Other obesity due to excess calories Hx of malignant neoplasm of breast 616552581 (SNOMED CT) 03/02 Removed 03/02 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 History of malignant neoplasm of breast Medications Medication Instructions Start Date Stop Date Generic Name NDC Provider DOXYCYCLINE MONOHYDRATE 100 MG CAPS Take 1 capsule by mouth twice a day 10/25 doxycycline monohydrate 88289917702 Arie Dougherty MD ceftriaxone recon soln 2GM IV Q24hrs [facility] 02/18 ceftriaxone recon soln Temi Norris Cubicin RF 800mg IV Q48hrs [facility] 02/18 daptomycin Temi Norris DOXYCYCLINE MONOHYDRATE 100 MG CAPS Take 1 capsule by mouth twice a day 02/03 doxycycline monohydrate 06392796034 Arie Dominguez RF 800mg IV Q48hrs [facility] 02/18 daptomycin Nubia Ervin ceftriaxone recon soln 2GM IV Q24hrs [facility] 02/18 ceftriaxone recon soln Nubiadeidre Ervin IPRATROPIUM-ALBUT MIKE 0.5-2.5 (3) MG/3ML SOLN 3 ml by mouth PRN 01/27 ipratropium-albut mike 72879430131 Nubia Minor Gaviscon 95-358 mg/15 mL suspension by mouth four times a day 30 mL aluminum hydrox-magnesium carb 40861049269 Nubia Minor IPRATROPIUM-ALBUT MIKE 0.5-2.5 (3) MG/3ML SOLN using nebulizer every six hours PRN ipratropium-albut mike 37907190255 Nubia Minor BASAGLAR KWIKPEN 100 UNIT/ML SOPN subcutaneously once a day insulin glargine 40967046211 Nubia Minor MUCUS RELIEF D 60-600 MG [id number] by mouth twice a day pseudoephedrine-g uaifenesin 61315280362 Nubia Minor VITAMIN B-12 100 MCG TABS by mouth once a day cyanocobalamin (vitamin b-12) 33477191513 Nubia Minor PERCOCET 5-325 MG TABS 1-2 tablet every four to six hours oxycodone-acetami nophen 33688910039 Nubia Minor BIOTIN 1000 MCG TABS by mouth once a day biotin 14798840637 Nubia Minor GABAPENTIN 800 MG TABS by mouth four times a day as needed gabapentin 99717345203 Nubia Minor ATORVASTATIN CALCIUM 40 MG TABS by mouth every morning Hold while on daptomycin atorvastatin 06997779184 Nubia Minor FERROUS SULFATE 325 (65 Fe) MG TABS by mouth once a day ferrous sulfate 02532202626 Nubia Minor VENLAFAXINE HCL 75 MG TABS by mouth twice a day venlafaxine 03767794162 Nubia Minor CITRACAL MAXIMUM 315-6.25 MG-MCG TABS by mouth twice a day calcium citrate-vitamin d3 11607939522 Nubia Poncho JANUMET XR 50-1000 MG [id number] by mouth twice a day sitagliptin phos-metformin 33065439389 Nubia Minor GNP HYDROCORTISONE/AL OE 1 % CREA Apply to skin twice a day as needed hydrocortisone acetate 95533203660 Nubia Minor MS CONTIN 15 MG CR-TABS by mouth twice a day morphine 99842868072 Nubia Minor OMEPRAZOLE 20 MG TBEC 2 tablet by mouth once a day omeprazole 90386872651 Nubia Minor DOXYCYCLINE HYCLATE 100 MG TABS Take 1 tablet by mouth twice a day 01/11 doxycycline hyclate 84121992110 Nubia Minor CARVEDILOL 12.5 MG TABS by mouth twice a day carvedilol 84628616013 Nubia Minor PROMETHAZINE HCL 25 MG TABS by mouth three times a day as needed promethazine 09105319664 Nubia Minor TIZANIDINE HCL 4 MG TABS by mouth three times a day as needed tizanidine 53447250618 Nubia Minor LACTULOSE 10 GM/15ML SOLN 30 ml by mouth as needed lactulose 41937452728 Nubia Minor COLACE 100 MG CAPS by mouth twice a day as needed docusate sodium 11811282442 Nubia Minor XARELTO TABLET 15 mg 15 mg Take 1 by mouth once a day XARELTO TABLET 15 mg 15 mg Nubia Minor ANASTROZOLE 1 MG TABS by mouth once a day anastrozole 37418990251 Nubia Minor ACETAMINOPHEN 500 MG TABS by mouth every six hours PRN acetaminophen 92515226477 Nubia Minor LOPERAMIDE HCL 2 MG CAPS by mouth once a day PRN loperamide 17601874659 Nubia Minor ASCORBIC ACID 500 MG TABS by mouth 0.5 tab am and 0.5 tab pm ascorbic acid (vitamin c) 00799451242 Nubia Minor BACLOFEN 10 MG TABS by mouth three times a day baclofen 35202505718 Nubia Minor BREO ELLIPTA 100-25 MCG/ACT AEPB every morning fluticasone furoate-vilantero l 87381468160 Nubia Minor BUMETANIDE 2 MG TABS by mouth twice a day bumetanide 81618644451 Nubia Minor CALCIUM 600 1500 (600 Ca) MG TABS by mouth twice a day calcium carbonate 01537833748 Nubia Minor D3 HIGH POTENCY 10 MCG (400 UNIT) TABS by mouth 2.5 units am and 2.5 units pm cholecalciferol (vitamin d3) 65474046054 Nubia Minor PLAVIX 75 MG TABS by mouth every morning clopidogrel 61930724371 Nubia Minor VITAMIN B-12 1000 MCG TABS by mouth every morning cyanocobalamin (vitamin b-12) 64002859042 Nubia Minor FLONASE ALLERGY RELIEF 50 MCG/ACT SUSP intranasally every morning fluticasone propionate 94109360354 Nubia Minor FOSAMAX 70 MG TABS by mouth once a week alendronate 62782937095 Nubia Minor GLIPIZIDE ER 2.5 MG [id number] by mouth every morning 0.5 tab glipizide 67871790925 Nubia Minor LANTUS SOLOSTAR 100 UNIT/ML SOPN 8 unit subcutaneously every night insulin glargine 16679548165 Nubia Minor IPRATROPIUM-ALBUT MIKE 0.5-2.5 (3) MG/3ML SOLN 3 ml by mouth PRN 01/27 ipratropium-albut mike 41559758975 Nubia Minor JARDIANCE 10 MG TABS by mouth every morning empagliflozin 05447672518 Nubia Minor MAGNESIUM OXIDE 400 MG TABS by mouth twice a day magnesium oxide 22075912254 Nubia Minor METFORMIN HCL 1000 MG TABS by mouth twice a day metformin 23936449139 Nubia Minor MULTI-VITAMIN HP/MINERALS CAPS by mouth once a day multivitamin,tx-m inerals 52812878179 Nubia Minor ONDANSETRON HCL 4 MG TABS by mouth twice a day PRN ondansetron hcl 71459980746 Nubia Minor PANTOPRAZOLE SODIUM 20 MG TBEC by mouth once a day pantoprazole 20442771047 Nubia Minor PREGABALIN 50 MG CAPS by mouth three times a day pregabalin 30216999206 Nubia Isaac SENNA 8.6 MG TABS by mouth 2 tabs PRN sennosides 47139366697 Nubia Isaac SPIRONOLACTONE 50 MG TABS by mouth once a day spironolactone 19831233677 Nubia Isaac TRAZODONE HCL 150 MG TABS by mouth once a day 2 tabs trazodone 65440454536 Nubia Isaac VALSARTAN 80 MG TABS by mouth twice a day valsartan 21401814937 Nubia Isaac VENLAFAXINE HCL ER 150 MG [id number] by mouth every morning venlafaxine 80924666480 Nubia Isaac VANCOMYCIN HCL SOLR 1gm IV q 12 x 6wks [facility] [phone] 10/05 VANCOMYCIN HCL SOLR 84163410860 Libby Cabello JIMI MS CONTIN 15 MG CR-TABS by mouth twice daily 01/11 MORPHINE SULFATE 37712903399 Arie Dougherty MD PERCOCET 5-325 MG TABS 1-2 tabs, every four to six hours, do not exceed 4000mg of acetaminophen per day 01/11 OXYCODONE-ACETAMI NOPHEN 12197124016 Arie Dougherty MD [facility] IRON 325 (65 Fe) MG TABS by mouth daily 01/11 FERROUS SULFATE 07102955439 Arie Dougherty MD COLACE 100 MG CAPS by mouth twice daily as needed 02/19 DOCUSATE SODIUM 27474717544 Arie Dougherty MD DOXYCYCLINE HYCLATE 100 MG TABS take 1 tab po BID 02/19 DOXYCYCLINE HYCLATE 74232109554 Arie Dougherty MD XARELTO TABLET Take one by mouth once daily. 01/11 RIVAROXABAN TABS 87779575169 Arie Dougherty MD COUMADIN 5 MG ORAL TABLET by mouth, AC dinner 10/17 WARFARIN SODIUM 08536851522 Arie Dougherty MD VANCOMYCIN HCL SOLR 1gm IV q 12 x 6wks [facility] [phone] 08/22 VANCOMYCIN HCL SOLR 58282039480 [facility] VANCOMYCIN HCL SOLR 750 mg IV q 12 x 6wks [facility] [phone] 03/31 VANCOMYCIN HCL SOLR 98382307065 [facility] VANCOMYCIN HCL SOLR 750 mg IV q 12 x 6wks [facility] [phone] 08/22 VANCOMYCIN HCL SOLR 38053596740 Daily Lewis RN VENLAFAXINE HCL 75 MG TABS by mouth twice daily 01/11 VENLAFAXINE HCL 67493564125 Kulwant P PROMETHAZINE HCL 25 MG TABS by mouth three times a day as needed 01/11 PROMETHAZINE HCL 48926804857 Kulwant P B-12 100 MCG TABS by mouth daily 09/29 CYANOCOBALAMIN 41070933768 Kulwant P JANUMET XR 50-1000 MG [id number] by mouth twice daily 01/11 SITAGLIPTIN-METFO RMIN HCL 17272230316 Kulwant P TIZANIDINE HCL 4 MG TABS by mouth three times a day as needed 01/11 TIZANIDINE HCL 19146082084 Kulwant P GABAPENTIN 800 MG TABS by mouth four times a day as needed 01/11 GABAPENTIN 19503860913 Kulwant P CARVEDILOL 12.5 MG TABS by mouth twice daily 01/11 CARVEDILOL 53371150387 Kulwant P ANASTROZOLE 1 MG TABS by mouth daily 01/11 ANASTROZOLE 78588276441 Kulwant P CITRACAL MAXIMUM 315-6.25 MG-MCG TABS by mouth twice daily 01/11 CALCIUM CITRATE-VITAMIN D 86262504628 Kulwant P [facility] OMEPRAZOLE 20 MG TBEC 2 tabs by mouth once daily 01/11 OMEPRAZOLE 50258699213 Kulwant P BIOTIN 1000 MCG TABS by mouth daily 01/11 BIOTIN 16469139628 Kulwant P ATORVASTATIN CALCIUM 40 MG TABS by mouth at bedtime 01/11 ATORVASTATIN CALCIUM 23311649468 Kulwant P COUMADIN 5 MG ORAL TABLET by mouth, AC dinner 05/19 WARFARIN SODIUM 08889177148 Kulwant P LACTULOSE SOLN 30mL by mouth as needed 02/19 LACTULOSE SOLN 81229220610 Kulwant P HYDROCORTISONE ACETATE 1 % CREA apply topically twice a day as needed 10/25 HYDROCORTISONE ACETATE 52874831666 Kulwant P MS CONTIN 15 MG CR-TABS by mouth twice daily 11/20 MORPHINE SULFATE 06699215616 Kulwant P [facility] IRON 325 (65 Fe) MG TABS by mouth daily 11/20 FERROUS SULFATE 03379419797 Kulwant P COLACE 100 MG CAPS by mouth twice daily as needed 02/19 DOCUSATE SODIUM 61160569127 Kulwant P PERCOCET 5-325 MG TABS 1-2 tabs, every four to six hours, do not exceed 4000mg of acetaminophen per day 11/20 OXYCODONE-ACETAMI NOPHEN 67390315394 Kulwant P VANCOMYCIN HCL SOLR 1gm IV q 12 x 6wks [facility] [phone] 08/22 VANCOMYCIN HCL SOLR 47913934558 [facility] Medications Administered No information available. 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 Dietary management education, guidance, and counseling [...] Oral Antibiotic CPT-ca Continue IV antibiotics 2022 CPT-88568 CMP [id number] CBC with Differential 2022 CPT-38271 C- reactive protein [id number], [id number] CPK CPT-J7030 IV Fluids CPT-sl STAT Labs CPT-sl STAT Labs CPT-sl STAT Labs CPT-87743 C- reactive protein CPT-06646 Sedimentation Rate (ESR) 201 02/20/04 CPT-05313 Vancomycin Trough CPT-11232 CMP [id number] CBC with Differential 2015 CPT-55275 C- reactive protein CPT-33783 Sedimentation Rate (ESR) 201 01/31/26 CPT-ca Continue IV antibiotics 2015 CPT-wpc Weekly PICC Line Care 09/28 CPT-00341 CMP [id number] CBC with Differential 2015 CPT-49277 Vancomycin Trough CPT-19626 C- reactive protein CPT-89988 Sedimentation Rate (ESR) 201 01/31/07 CPT-cdpcr C-Diff PCR CPT-isi New IV antibiotic CPT-31029 PICC Line Insertion CPT-41245 [facility] [id number] CBC with Differential 2015 CPT-01791 C- reactive protein CPT-13315 Sedimentation Rate (ESR) 201 01/30/30 CPT-DC Discontinue IV antibiotics 2 CPT-PICREM PICC Removal CPT-ca Continue IV antibiotics 2015 CPT-31071 CMP [id number] CBC with Differential 2015 CPT-34176 C- reactive protein CPT-65611 Sedimentation Rate (ESR) 201 01/27/01 CPT-56258 Vancomycin Trough CPT-ca Continue IV antibiotics 2015 CPT-87803 CMP [id number] CBC with Differential 2015 CPT-61810 C- reactive protein CPT-41361 Sedimentation Rate (ESR) 201 01/27/20 CPT-20961 Vancomycin Trough CPT-ca Continue IV antibiotics 2015 [...]
--- OUTSIDE RECORDS SUMMARY | 2025-02-21 10:20 | XMS_ITS | Encounter Summary ---
Author Organization [facility] Address [address] 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 [place] [address] 03/27/2025 11:50 AM EDT Clinical Support Medical Office Building Lab [address] [place] [address] 03/27/2025 1:00 PM EDT Office Visit Medical Office Building Urology [address] [facility], [address] [place] [address] Cayla Erazo APRN, DNP [address] [facility] [address] [place] [address] 05/16/2025 8:00 AM EDT Office Visit [facility] [place] [address] [facility], [address] [place] [address] Karly Gracia MD [address] [place] [address] 06/07/2025 1:00 PM EDT Office Visit [facility] [address] [place] [address] Tom Iraheta MD [address] [place] [address] documented as of this encounter [...] documented as of this encounter Care Teams Carpenter Repair Relationship Specialty Start Date End Date Daniel Barba MD [address] [place] [address] PCP - General 01/02/21 12/30/24 Cayla Erazo, LIZANDRO, DNP [address] [place] [address] Nurse Practitioner Urology 12/20/24 documented as of this encounter
--- OUTSIDE RECORDS SUMMARY | 2025-02-21 10:20 | XMS_ITS | Encounter Summary ---
Author Organization [facility] Address [address] 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nd [place] [address] 03/27/2025 11:50 AM EDT Clinical Support Medical Office Building Lab [address] [place] [address] 03/27/2025 1:00 PM EDT Office Visit Medical Office Building Urology [address] [facility], [address] [place] [address] Cayla Erazo, AUTO PARTS SALESPERSON, DNP [id number] [place] [address] 05/16/2025 8:00 AM EDT Office Visit [facility] [address] [facility], [address] [place] [address] Karly Gracia MD [address] [place] [address] 06/07/2025 1:00 PM EDT Office Visit [facility] [address] [place] [address] Tom Iraheta MD [address] [place] [address] documented as of this encounter [...] documented as of this encounter Care Teams Educational Sign Language Interpreter Relationship Specialty Start Date End Date Vignesh Pickens MD [address] [place] [address] PCP - General 12/31/24 Cayla Erazo APRN, DNP [address] [place] [address] Nurse Practitioner Urology 12/20/24 documented as of this encounter
--- OUTSIDE RECORDS SUMMARY | 2025-02-21 10:20 | XMS_ITS | Clinical Summary ---
Author Organization [facility] Address [address] [place] [address] Care Team Providers Care Hardware Sales Assistant Name Role Phone Cayla Erazo APRN, DNP Unavailable [phone] Vignesh Pickens MD Primary Care Provider [phone] Allergies Active Allergy Reactions Criticality Noted Date [...] ureteral calculous obstruction 08/17/2024 Kidney infection 08/16/2024 [place]uda coma scale total sco re 13-15, unspecified [...] without esophagitis 03/28/2017 CAD (coronary artery disease), [place] coronary a rtery 03/28/2017 Controlled diabetes mellitus [...] Anesthesia Event [facility] [address] [place] [address] Nj Sears MD 01/31/2025 8:55 AM EDT - 01/31/2025 10:10 AM EDT Surgery [facility] [address] [place] [address] Ceci Mitchell MD URETEROSCOPY,CYSTOSCO PY, RETROGRADE PYELOGRAM, BILATERAL STENT PLACEMENT [09702 (CPT )] 01/31/2025 8:03 AM EDT - 01/31/2025 1:39 PM EDT Hospital Encounter [facility] [address] [place] [address] Ceci Mitchell MD Urinary retention (Primary Dx); Gross hematuria Discharge Disposition: Home or Self Care 01/31/2025 Travel 01/24/2025 2:00 PM EDT Pre-Admission Testing [facility]op [facility] [address] [place] [address] 01/24/2025 Travel 01/23/2025 Telephone [facility] Urology [address], [address] [place] [address] Ceci Mitchell MD 01/17/2025 Telephone [facility] Urology [address], [address] [place] [address] Ceci Mitchell MD 01/16/2025 Telephone [facility] Urology [address], [address] [place] [address] Ceci Mitchell MD 01/03/2025 2:15 PM EDT - 01/03/2025 11:59 PM EDT Hospital Encounter [facility] CT [address], [address]nd [place] [address] Gross hematuria Discharge Disposition: Home or Self Care 01/03/2025 Travel 12/31/2024 4:00 PM EDT Office Visit [facility] Comprehensive [facility]ascular [facility] [address] [facility] 5th Floor [address] [place] [address] Bert Canela MD Asymptomatic bilateral carotid artery stenosis (Primary Dx); PVD (peripheral vascular disease) ([facility]); Hx of AKA (above knee amputation), left ([facility]); History of stroke; Type 2 diabetes mellitus without complication, unspecified whether long wall mining machine tender insulin use 12/31/2024 2:01 PM EDT - 12/31/2024 11:59 PM EDT Hospital Encounter [facility] Vascular Lab [address] [facility] 5th Floor [address] [place] [address] Coronary artery disease involving [place] heart without angina pectoris, unspecified vessel or lesion type; S/P AKA (above knee amputation) bilateral ([facility]); Acute left arterial ischemic stroke, ICA (internal carotid artery) ([facility]) Discharge Disposition: Home or Self Care 12/31/2024 2:01 PM EDT - 12/31/2024 11:59 PM EDT Hospital Encounter [facility] Vascular Lab [address] [facility] 5th Floor [address], [address] [place] [address] S/P AKA (above knee amputation) bilateral ([facility]); Encounter for surgical aftercare following surgery on the circulatory system Discharge Disposition: Home or Self Care 12/31/2024 Travel 12/20/2024 9:20 AM EDT Office Visit [facility] Urology [address], [address] [place] [address] Cayla Erazo, DINING ROOM SUPERVISOR, DNP Recurrent UTI (Primary Dx); Hydronephrosis, unspecified hydronephrosis type; Urinary retention; Post-menopausal atrophic vaginitis; Gross hematuria 12/20/2024 Orders Only External Location [address] [place] [address] Provider, External 12/20/2024 Travel 12/04/2024 12:05 PM EDT - 12/04/2024 11:59 PM EDT Hospital Encounter Medical Office Building Cardiac Diagnostic Testing Medical Office Building Echo Lab [address] [facility], [address] [place] [address] Coronary artery disease involving [place] heart without angina pectoris, unspecified vessel or lesion type Discharge Disposition: Home or Self Care 12/04/2024 Travel 11/27/2024 2:25 PM EDT - 11/27/2024 11:59 PM EDT Hospital Encounter [facility] [address] [place] [address] Hydronephrosis, unspecified hydronephrosis type; Urinary retention Discharge Disposition: Home or Self Care 11/27/2024 Travel from Last 3 Months Immunizations Immunization Administration Dates Next Due Influenza, injectable, quadrivalent, preservativ e free 05/11/2016 [employer] COVID-19 Vaccine (Purple Cap) 12 + 09/30/2020,09/09/2020 [...] time in the past 12 m [facility], were you homeless or living in a [...] drink first t rodríguez in the morning (EYE-TICKET SALES SUPERVISOR) to steady your nerves or to get rid of a hangover? 0 08/15/2024 CAGE Questionnaire Score 0 024 Utilities Answer Date Recorded In the past 12 months has th [employer], gas, oil, or water [employer] threatened to shut off services in your [...] Description 03/07/2025 10:00 AM EDT Office Visit [facility] [address], [address] [place] [address] Doug Chapman MD [address] [place] [address] 03/27/2025 10:30 AM EDT Appointment [facility] Ultrasound [address], [address]nd [place] [address] 03/27/2025 11:50 AM EDT Clinical Support Medical Office Building Lab [address] [place] [address] 03/27/2025 1:00 PM EDT Office Visit Medical Office Building Urology [address] [facility], [address] [place] [address] Cayla Erazo, DINING ROOM SUPERVISOR, DNP [address] [facility] [address] [place] [address] 05/16/2025 8:00 AM EDT Office Visit [facility] [place] [address] [facility], [address] [place] [address] Karly Gracia MD [address] [place] [address] 06/07/2025 1:00 PM EDT Office Visit [facility] [address] [place] [address] Tom Iraheta MD [address] [place] [address] Health Maintenance Due Date Last [...] - Risk 60-74 years 1-dose series) 2019 PDE-JOEUW-27 Vaccine (3 - Pfizer risk series) 10/28/2020 [...] [employer] Implanted Type Area [employer] Salesperson Device Identifier Shelf Expiration Date Model / Serial / Lot Stent Ureteral Tria [employer] Monofilament 7f/24cm - [id number] Implanted:Qty: 1 on 01/31/2025 by Ceci Mitchell MD at [facility] Right: Kidney [id number]-[id number] 49 06/14/2027 [id number] 0 / / [id number] Stent Ureteral Tria Firm Monofilament 7f/24cm - [id number] Implanted:Qty: 1 on 01/31/2025 by Ceci Mitchell MD at [facility] Left: Kidney COCC-[id number] 49 07/02/2027 [id number] / / [id number] Procedures Procedure Name Priority Date/Time Associated Diagnosis Comments POCT GLUCOSE METER UNSOLICITED RESULTS Routine 01/31/2025 11:39 AM EDT FL LESS THAN 1 HOUR (NON-REPORTABLE) Routine 01/31/2025 11:14 AM EDT FUNGAL CULTURE, ROUTINE Routine 01/31/2025 10:23 AM EDT Gross hematuria URINE CULTURE Routine 01/31/2025 10:22 AM EDT Gross hematuria PB ANESTHESIA PLACEHOLDER Routine 01/31/2025 9:58 AM EDT TX AN ELECTIVE ENDOTRACHEAL AIRWAY Routine 01/31/2025 9:58 AM EDT TX CYSTO/URETERO/PYELOSC, BX &/OR FULG LESN 01/31/2025 9:32 [...] 2:27 PM EDT Coronary artery disease involving [place] heart without angina pectoris, unspecified vessel or [...] EDT Hydronephrosis, unspecified hydronephrosis type Urinary retention TX COMPLEX CYSTOMETROGRAM W/VOID PRESS&URETHRAL PROFILE Routine 12/20/2024 10:28 AM EDT Hydronephrosis, unspecified hydronephrosis type Urinary retention INJECTION FOR BLADDER XRAY WITHOUT VOIDING Routine 12/20/2024 10:28 AM EDT Hydronephrosis, unspecified hydronephrosis type Urinary retention POC ULTRASOUND 12/20/2024 ECHO, ADULT TRANSTHORACIC COMPLETE Routine 12/04/2024 1:26 PM EDT Coronary artery disease involving [place] heart without angina pectoris, unspecified vessel or [...] 01/31/2025 11:41 AM EDT [facility] Human Resources Department Supervisor ID Abbey Medina 01/31/2025 11:41 AM EDT HEALTHCARE LAB Device ID [id number] 01/31/2025 11:41 AM EDT HEALTHCARE LAB Specimen Type POC Capillary 01/31/2025 11:41 AM EDT HEALTHCARE LAB Blood Capillary blood specimen / Unknown 01/31/2025 11:39 AM EDT 01/31/2025 11:41 AM EDT Ceci Mitchell MD LAB POINT OF CARE TE ST DOCKED DEVICE UNSOLICITED RESULTS Final Result Performing Organization Address City/[facility]/ZIP Co de Phone Number [facility] [address] [place], [place] [id number] * FL Less than 1 Hour Intraoperative [...] Growth Maira glabrata(A) 02/08/2025 11:50 AM EDT [facility] Urine Urinary bladder structure / Unknown 01/31/2025 10:23 AM EDT 01/31/2025 11:38 AM EDT Comment:Pre-op diagnosis: Gross hematuria Ceci Mitchell MD LAB MICROBIOLOGY - GENERAL O RDERABLES Final Result Performing Organization Address [facility] [place] [address] * Urine Culture (01/31/2025 10:22 AM EDT) Only the most recent of2 resultswithin the time period is included. Culture No growth at day 1 02/01/2025 8:02 AM EDT [facility] Urine Urinary bladder structure / Unknown 01/31/2025 10:22 AM EDT 01/31/2025 11:38 AM EDT Comment:Pre-op diagnosis: Gross hematuria Ceci Mitchell MD LAB MICROBIOLOGY - GENERAL O RDERABLES Final Result Performing Organization Address [facility] [place] [address] * TX AN ELECTIVE ENDOTRACHEAL AIRWAY, PB ANESTHESIA PLACEHOLDER (01/31/2025 9:58 AM EDT) Narrative Migue Seay CRNA - 01/31/2025 9:58 AM EDT Migue Seay CRNA 01/31/2025 10:45 AM Airway Date/Time: 01/31/2025 9:58 AM Reason: elective Airway not difficult General Information and Staff Patient location during procedure: OR AUTO MECHANIC APPRENTICE: Migue Seay CRNA Performed: [place]OR[place] Patient Condition [...] following split bolus administration of IV contrast, [id number], 150 mL. Reformatted images in the coronal [...] on 01/03/2025 3:33 PM us Cayla Erazo DINING ROOM SUPERVISOR, DNP IMG CT PROCEDURES Final Result * [...] are demonstrated at the levels of the BAND BIAS MACHINE OPERATOR, CANDY PULLER and DPA. Segmental pressures are within normal limits with a CANDY PULLER JASEN of 0.98 (138 mmHg) and a DPA JASEN of 1.28 (181 mmHg). Digit pressures are 115 mmHg. Left: AKA is noted. Multiphasic waveforms are demonstrated at the level of the BAND BIAS MACHINE OPERATOR. 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 COMPARISON: None. FINDINGS: Right: Multiphasic waveforms are demonstrated at the levels of the BAND BIAS MACHINE OPERATOR,CANDY PULLER and DPA. Segmental pressures are within normal limits with a CANDY PULLER ABIof 0.98 (138 mmHg) and a DPA JASEN of 1.28 (181 mmHg). Digit pressures sqk711 mmHg. Left: AKA is noted. Multiphasic waveforms are demonstrated at the level ofthe BAND BIAS MACHINE OPERATOR. IMPRESSION: Right: Normal study; No evidence [...] - 99 mg/dL 12/20/2024 1:19 PM EDT [facility] BUN, Plasma 34(H) 8 - 23 mg/dL 12/20/2024 1:19 PM EDT [facility] Creatinine, Plasma 1.82(H) 0.60 - 1.10 mg/dL 12/20/2024 1:19 PM EDT [facility] BUN/Creatinine Ratio 19 12/20/2024 1:19 PM EDT [facility] Sodium, Plasma 134(L) 136 - 145 mmol/L 12/20/2024 1:19 PM EDT [facility] Potassium, Plasma 4.8 3.6 - 4.9 mmol/L 12/20/2024 1:19 PM EDT [facility] Chloride, Plasma 94(L) 97 - 107 mmol/L 12/20/2024 1:19 PM EDT [facility] CO2, Plasma 28 22 - 29 mmol/L 12/20/2024 1:19 PM EDT [facility] Anion Gap 12 6 - 16 mmol/L 12/20/2024 1:19 PM EDT [facility] Total Calcium, Plasma 10.0 8.9 - 10.2 mg/dL 12/20/2024 1:19 PM EDT [facility] eGFRcr 30.5 mL/min/1.7 3m*2 12/20/2024 1:19 PM EDT [facility] Comment:Reported eGFRcr in m L/min/1.73m2 is based the CKD-EPI 2020 equation that does not use a race coefficient. Blood Venous blood specimen / Unknown Venipuncture / Unknown 12/20/2024 11:54 AM EDT 12/20/2024 11:55 AM EDT us Cayla Erazo APRN, DNP LAB BLOOD ORDERABLES [facility] al Result [facility] [address] [place] [address] * INJECTION FOR BLADDER XRAY WITHOUT VOIDING, TX COMPLEX CYSTOMETROGRAM W/VOID PRESS&URETHRAL PROFILE, UROLOGY UDS WITH BASE PERFORMABLE CHARGES (12/20/2024 10:28 AM EDT) Narrative Cayla Erazo APRN, DNP - 12/20/2024 10:28 AM EDT Cayla rEazo APRN, DNP 01/04/2025 2:40 PM UDS Date/Time: 12/20/2024 10:28 AM Performed by: Cayla Erazo APRN, DNP Authorized by: Cayla Erazo APRN, DNP [place] Protocol: Time out called at: 12/20/2024 10:28 [...] mean PAP 39 mmHg CARLOS ISCV PA TX(ACCEL) 37.4 mmHg CARLOS ISCV PA acc slope [...] is no recent study available for direct [id number] comparison. us Karly Gracia MD CV ECHO [...] on 11/27/2024 3:49 PM us Cayla Erazo DINING ROOM SUPERVISOR, DNP IMG US PROCEDURES Final Result * Hepatitis C Antibody - ED (08/15/2024 5:35 AM EST) Hepatitis C Antibody Negative Negative 08/15/2024 7:08 AM EST [facility] Blood Venous blood specimen / Unknown Venipuncture / Unknown 08/15/2024 5:35 AM EST 08/15/2024 6:06 AM EST us Marcy Zhong MD LAB BLOOD ORDERABLES Final Resu lt [facility] [address] [place] [address] * (ABNORMAL) Hemoglobin A1c (03/05/2014 7:31 PM [...] Narrative SUNQUEST - 04/10/2013 3:59 PM EDT [facility] MR #: [id number] [facility] Y[place], [place] [address] 1960 (Age: 52) FW Collect Date: 04/10/2013 00:00 Receipt Date: 04/10/2013 14:23 Page 1 DEPARTMENT OF PATHOLOGY AND LABORATORY MEDICINE CYTOPATHOLOGY REPORT Email: [email or web address] ATTENDING MD/Practitioner: Kimmie Aguilera MD Service: BCC [...] w/ in-situ carcinoma (+) for ER / TX BCC / FNA performed by: Dr. Jonatan [...] RECEPTOR POSITIVE STATUS (ER POSITIVE) F: A; 66603 ASP INTER, 32632, 39020 SNOMED CODES: A; R22904 Y27359 E23351 R95592 M58025 EW1037 P1149 DR6152 A resident has participated in this service. A pathologist has performed and is responsible for the reported pathologic evaluation. 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 Yes Care Teams Hardware Sales Assistant Relationship Specialty Start Date End Date Vignesh Pickens MD [address] [place] [address] PCP - General 12/31/24 Cayla Erazo APRN, DNP [address] [place] [address] Nurse Practitioner Urology 12/20/24
--- OUTSIDE RECORDS SUMMARY | 2025-02-21 10:21 | XMS_ITS | Encounter Summary ---
Author Organization [facility] Address [address] [place] [address] Care Team Providers Care Supply Chain Director Name Role Phone Daniel Barba MD Primary Care Provider [phone] Cayla Erazo APRN, [facility] Unavailable [phone] Vignesh Pickens MD Primary Care Provider [phone] Encounter Details Date Type Department Care Team (Late st Contact Info) Description 10/19/2024 Orders Only External Location [address] [place] [address] Provider, External Social History Tobacco Use Types [...] any time in the past 12 m [facility], were you homeless or living [...] drink first t rodríguez in the morning (EYE-ELECTRONIC INDUSTRIAL CONTROLS MECHANIC) to steady your nerves or to get [...] Upcoming Encounters Date Type Department Care Team ([facility] st Contact Info) Description 03/07/2025 10:00 AM EDT Office Visit [facility] Urology [address]nd [place] [address] Doug Chapman MD [address] [place] [address] 03/27/2025 10:30 AM EDT Appointment [facility] Ultrasound [address] 2nd [place] [address] 03/27/2025 11:50 AM EDT Clinical Support Medical Office Building Lab [address] [place] [address] 03/27/2025 1:00 PM EDT Office Visit Medical Office Building Urology [address] [facility], [address] [place] [address] Cayla Erazo, PROFESSOR OF LITERATURE, DNP [address] [place] [address] 05/16/2025 8:00 AM EDT Office Visit [facility] [place] [address] [facility], [address] [place] [address] Karly Gracia MD [address] [place] [address] 06/07/2025 1:00 PM EDT Office Visit [facility] [address] [place] [address] Tom Iraheta MD [address] [place] [address] documented as of this encounter [...] documented as of this encounter Care Teams Supply Chain Director Relationship Specialty Start Date End Date Daniel Barba MD [address] [place] [address] PCP - General 01/02/21 12/30/24 Vignesh Pickens MD [address] [place] [address] PCP - General 12/31/24 Cayla Erazo APRN, DNP [address] [place] [address] Nurse Practitioner Urology 12/20/24 documented as of this encounter
--- OUTSIDE RECORDS SUMMARY | 2025-02-21 10:21 | XMS_ITS | Referral Summary ---
Author Organization [facility] ([place], [place], [place], [place]) Address [address] [place] [address] Care Team Providers Care Hris Administrator Name Role Phone [facility], Provider Not In The System MD Primary [...] Do you speak a language other than Tajik at ho me? No 12/09/2023 Do you [...] A1C 11.7 % 11/25/2023 5:[address] [facility] [place] Comment: Hemoglobin A1C levels are related to mean glucose during the preceding 2-3 months. Less than 7% demonstrates glycemic control in diabetic patients. Hemoglobin AlC % Suggested Diagnosis > or = 6.5 Diabetic 5.7 - 6.4 Prediabetic <5.7 Non-diabetic eAVG Glucose 289.09 mg/dL 11/25/2023 5:[address] [facility] [place] Blood Venipuncture / Unknown 11/25/2023 11:24 AM EDT 11/25/2023 1:46 PM EDT Radha Ram MD LAB BLOOD ORDERABLES Fi nal Result [facility] [place] [address] [place] [address], [facility] [phone] from Last 3 Months or Most Recently Relevant to Health Maintenance Insurance MEDICARE PART A B MEDICAID OF [place] Advance Directives For more information, please contact: [phone] * Full Code (Latest Code Status on [...] Sister First Alternate Healthcare Decision-Maker Care Teams Hris Administrator Relationship Specialty Start Date End Date [facility], Provider Not In The System, [place] [address] PCP - General 10/05/23
--- OUTSIDE RECORDS SUMMARY | 2025-02-21 10:21 | XMS_ITS | Encounter Summary ---
Author Organization [facility] Address [address] [place] [address] Care Team Providers Care [place] Hand Name Role Phone Cayla Erazo APRN, DNP Unavailable [phone] Vignesh Pickens MD Primary Care Provider [phone] Encounter Details Date Type Department Care Team [...] any time in the past 12 m [facility], were you homeless or living [...] drink first t rodríguez in the morning (EYE-BUSINESS SUPPORT COORDINATOR) to steady your nerves or to get [...] [address] [place] [address] Doug Chapman MD [address] [facility] [facility] [address] [place] [address] 03/27/2025 10:30 AM EDT Appointment [facility] Ultrasound [address] [place] [address] 03/27/2025 11:50 AM EDT Clinical Support Medical Office Building Lab [address] [place] [address] 03/27/2025 1:00 PM EDT Office Visit Medical Office Building Urology [address] [facility], [address] [place] [address] Cayla Erazo APRN, [place] [id number] [place] [address] 05/16/2025 8:00 AM EDT Office Visit [facility] [place] [address] [facility], [address] [place] [address] Karly Gracia MD [address] [place] [address] 06/07/2025 1:00 PM EDT Office Visit [facility] [address] [place] [address] Tom Iraheta MD [address] [place] [address] documented as of this [...] documented as of this encounter Care Teams Drop [place] Hand Relationship Specialty Start Date End Date Vignesh Pickens MD [address] [place] [id number] PCP - General 12/31/24 Cayla Erazo APRN, [place] [address] [place] [address] Nurse Practitioner Urology 12/20/24 documented as of this encounter
--- OUTSIDE RECORDS SUMMARY | 2025-02-21 10:21 | XMS_ITS | Encounter Summary ---
Author Organization [facility] Address [address] [place] [address] Care Team Providers Care Solder Making Supervisor Name Role Phone Cayla Erazo APRN, DNP Unavailable [phone] Vignesh Pickens MD Primary Care Provider [phone] Encounter Details Date Type Department Care Team (Late st Contact Info) Description 01/23/2025 Telephone [facility] [address] [place] [address] Ceci Mitchell MD [address] [place] [address] Social History Tobacco Use Types [...] drink first t rodríguez in the morning (EYE-MOVIE STAR) to steady your nerves or to get [...] 03/07/2025 10:00 AM EDT Office Visit [facility] Urology [address] [place] [address] Doug Chapman MD [id number] [place] [address] 03/27/2025 10:30 AM EDT Appointment [facility] Ultrasound [address], [address]nd [place] [address] 03/27/2025 11:50 AM EDT Clinical Support Medical Office Building Lab [address] [place] [address] 03/27/2025 1:00 PM EDT Office Visit Medical Office Building Urology [address] [facility], [address] [place] [address] Cayla Erazo, EXHIBITION CARVER, DNP [address] [facility] [address] [place] [address] 05/16/2025 8:00 AM EDT Office Visit [facility] [place] [address] [facility], [address] [place] [address] Karly Gracia MD [address] [place] [address] 06/07/2025 1:00 PM EDT Office Visit [facility] [address] [place] [address] Tom Iraheta MD [address] [place] [address] documented as of this encounter [...] documented as of this encounter Care Teams Solder Making Supervisor Relationship Specialty Start Date End Date Vignesh Pickens MD [address] [place] [address] PCP - General 12/31/24 Cayla Erazo APRN, DNP [address] [place] [address] Nurse Practitioner Urology 12/20/24 documented as of this encounter
--- OUTSIDE RECORDS SUMMARY | 2025-02-21 10:21 | XMS_ITS | Encounter Summary ---
Author Organization [facility] Address [address] [place] [address] Care Team Providers Care Deicer Finisher Name Role Phone Daniel Barba MD Primary Care Provider [phone] Judy Huff TERRAZZO ROLLER Unavailable UnavailCayla Carvajal APRN, DNP Unavailable [phone] Vignesh Pickens MD Primary Care Provider + [phone] Encounter Details Date Type Department Care Team (Late Contact Info) Description 08/11/2022 Orders Only External Location [address] [place] [address] Provider, External Social History Tobacco Use Types [...] [address] [place] [address] Doug Chapman MD [address] [place] [address] 03/27/2025 10:30 AM EDT Appointment [facility] Ultrasound [address]nd [place] [address] 03/27/2025 11:50 AM EDT Clinical Support Medical Office Building Lab [address] [place] [address] 03/27/2025 1:00 PM EDT Office Visit Medical Office Building Urology [address] [facility], [address] [place] [address] Cayla Erazo, ELECTRONIC HEAT SEAL OPERATOR, DNP [address] [place] [address] 05/16/2025 8:00 AM EDT Office Visit [facility] [place] [address] [facility], [address] [place] [address] Karly Gracia MD [address] [place] [address] 06/07/2025 1:00 PM EDT Office Visit [facility] [address] [place] [address] Tom Iraheta MD [address] [place] [address] documented as of this encounter [...] documented as of this encounter Care Teams Deicer Finisher Relationship Specialty Start Date End Date Daniel Barba MD [address] [place] [address] PCP - General 01/02/21 12/30/24 Vignesh Pickens MD [address] [place] [address] PCP - General 12/31/24 Judy Huff, TERRAZZO ROLLER [facility] Nurse 08/24/24 08/24/24 Cayla Erazo APRN, FREDERICK [id number] [place] [address] Nurse Practitioner Urology 12/20/24 documented as of this encounter
--- OUTSIDE RECORDS SUMMARY | 2025-02-21 10:21 | XMS_ITS | Data Portability ---
Author Organization [place] [facility] Address [address] [facility] [address] [place] [address] Assessment No assessment recorded. Plan of Treatment [...] 08/11/20 22 08/11/2022 XR, knee, 3 view [place] [facility] Claudia mi [address] [address] uLis t Name: ZEV Peñaloza LATONIAHENOK YOANNA Patikvng [...] Franky wray MD on 2021 10:53 AM [email or web address] [facility] Radiology [place] [address], [place], [address], 08/19/2022 08:22:02 09/01/19 23 09/01/2022 MRI, knee, w/wo contr ast [place] [facility] [address] [facility] [place] [address] Patien t Name: ZEV TRAORE CK Patien [...] admini strati on of 10cc Gadavi st ([facility] [address]-0 2), there is conflu ent periph [...] Franky wray MD on 023 12:20 PM [email or web address] [facility] Radiology [facility] [address] [place] [address], [address], 09/22/2022 08:42:27 09/01/19 23 09/01/2022 MRI, knee, w/wo contr ast [address] [address] [place] NDUM [address]1 Patien t Name: ZEV [...] admini strati on of 10cc Gadavi st ([facility] [address]- 0325-0 2), there is conflu ent periph [...] Franky wray MD on 023 12:20 PM [email or web address] [facility] Radiology [facility] [address] [place], [address], 09/22/2022 08:42:28 09/27/19 24 09/27/2023 [facility] [address] [facility] [place] [address] Luis t Name: ZEV stoner : [phone] [...] wray MD on 09/27/19 24 3:46 PM [email or web address] [facility] Radiology [place] [address] , [place], [address], 09/28/2023 16:18:54 Result Notes Documentation Provider Name and Address Organization Details Recorded Time Xr, Knee, 3 [facility] [address] [place] [address] Patient Name: EILEEN MAY Patient : 1960 [...] By: Arthur Pepe MD HI HOUGH PA-C [address] [place] [address], [address], [facility] 08/19/2022 08:22:02 Mri, Knee, W/wo Contrast : [facility] [address] [place] [address] ADDENDUM #1 Patient Name: EILEEN MAY Patient [...] AP. After intravenous administration of 10cc Gadavist ([facility] [address]-26), there is confluent peripheral enhancement of this [...] By: Arthur Pepe MD HI HOUGH PA-C [address] [place] [address], [address], [facility] 09/22/2022 08:42:28 Mri, Knee, W/wo Contrast : [address] [address] Patient Name: EILEEN MAY Patient : 1960 Patient Ordering Provider: SARAHI HOUGH EXAM DATE: 09/01/2022 EXAM: [facility] KNEE MARS W/WO CONTRAST HISTORY: 62-year-old female [...] AP. After intravenous administration of 10cc Gadavist ([facility] [address]-32), there is confluent peripheral enhancement of this [...] Arthur Pepe MD HI HOUGH PA-C [address] [place], [address], [facility] 09/22/2022 08:42:27 Xr, Knee, 3 [facility] [address] [place] [address] Patient Name: EILEEN MAY Patient : 1960 [...] Interpreted By: Arthur Pepe MD STORY PA-C [address] [place] [address], [address], [facility] 09/28/2023 16:18:54 Problems Name Problem SNOMED Code Status Onset Date Resolution Date Notes Provider Name and Address Organization Details Recorded Time Prostheti c joint infection 984987430 Active 2015 From Automated Load;Prov ider: Suzie Guerrier;St atus: Active Gayle Mckeon 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 4 08:21:42 Type 2 diabetes mellitus without complicat ion 291050899 Active 2015 From Automated Load;Prov ider: Pooja Ricketts; Status: Active Gayle Mckeon [facility] 4 08:21:42 Hypertens qiana disorder 01159659 Active 2015 From Automated Load;Prov ider: Pooja Ricketts; Status: Active Gayle Mckeon [facility] 4 08:21:42 Venous embolism 352213808 Active 2015 From Automated Load;Prov ider: Pooja Ricketts; Status: [facility] 08:21:42 Deep venous thrombosi s of lower extremity 982552116 Active 2015 From Automated Load;Prov ider: Pooja Ricketts; Status: [facility] 4 08:21:42 Anemia 625387281 Active 2015 From Automated Load;Prov ider: Aislinn Robin;St atus: Active Gayle Mckeon [facility] 4 08:21:42 Coronary arteriosc lerosis in [place]k artery 185867939609 7 Active 2015 From Automated Load;Prov ider: Aislinn oRbin; atus: Active [facility] 4 08:21:41 Prostheti c joint infection 327288079 [place] [address] [place] [address], [address], [facility] 4 11:50:07 Problem Notes None recorded. Procedures Surgical History Date Name Laterality Status Provider Name and Address Organization Details Recorded Time 4 Aspiration Joint/Bursa, Major completed LISA STORY PA-C [address] [place], [address], [facility] 09/27/2023 16:07:18 Imaging Results None recorded. Procedure Notes None recorded. Medical Equipment None Reported. Allergies Allergen ID Allergen Name Allergen Category Reaction Reaction Severity Criticality Documentation Date Start Date Code Code System Note Provider Name and Address Organization Details Recorded Time 520160 Substance with sulfonami de structure and antibacte rial mechanism of action (substanc e) medicatio n Not available Not available Not available 07/16/20162015 68482 8003 SNOMED Comme nt: Creat ed By: Simone salinas;Cre ated Date: 2015 2:50: 12 PM; Not Available [facility] 6 09:33:23 059238 Wellbutri n medicatio n Not available Not available Not available 07/16/20162015 57906 RxNorm Comme nt: Creat ed By: Simone salinas;Cre ated Date: 2015 2:50: 46 PM; Not Available [facility] 6 09:47:17 410773 acetamino phen / hydrocodo ne medicatio n Not available Not available Not available 07/16/20162015 89283 2 RxNorm Comme nt: Creat ed By: Simone salinas;Cre ated Date: 2015 2:50: 59 PM; Not Available [facility] 6 09:47:18 316695 Ultram medicatio n Not available Not available Not available 07/16/20162015 05564 6 RxNorm Comme nt: Creat ed By: Simone lockhartCre ated Date: 2015 2:51: 14 PM; Not Available [facility] 6 10:10:25 Medications Name Sig Start Date [...] for 10 days. 08/11 completed Mailed to [facility] , [address] [place] [address] Not Available Not Available Not Available doxycycli [...] Updated DateTime 09/01/2022 162.56 cm 37.6 kg/m2 10058.73 g [facility] 09/01/2022 12:30:28 Date Recorded Body height Provider Name an d Address Organization Details Last Updated DateTime 09/27/2023 162.56 cm [facility] 0 09/27/2023 14:45:54 Date Recorded Body height Provider Name an d Address Organization Details Last Updated DateTime 10/25/2023 162.56 cm [facility] 11:45:38 Date Recorded Body weight Body mass index (BMI) Body height Provider Name and Address Organization Details Last Updated DateTime 08/11/2022 03317.73 g 37.6 kg/m2 162.56 cm [facility] 08/11/2022 11:07:51 Social History None recorded. Functional Status None recorded. Mental Status None recorded. Family History Nothing Reported. 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 No medical history recorded. Gynecological HistoryNo gynecological history recorded. 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 She currently stays at a care home, [place] facility. She states she has had purulent [...] surgical discussion once Synovasure analysis is completed. [id number] SUZIE Richards MD [facility] [address] [place] [address] 10/25/2023 11:27:50 10/25/2023 13:02:53 Prosthetic joint infection 726472611 T84.54XS ASSESSMENT : Chronic recurrent PJI left [...] tion has been echoed by colleagues at [facility]. At this point, Malathi is amenable to amputation . I have discussed her case with Dr. Will garcia, who has kindly agreed to assist us with the procedure. We will coordinate with his office regarding surgical scheduling , but tentative plan for above-knee amputation on December [address] [facility]. From a technical standpoint , we will [...] were answered to the best my ability. [id number] SUZIE Richards MD SURGERY SCHEDULE [address] [place] [address] 12/14/2023 08:58:40 12/16/2023 10:03:36 Health Concerns [...] HEALTH CHOICES - FFS/TRADITION AL Eileen May [id number] Eileen May 10/12/2023 2 [place] HE[place] CHOICES - FFS/TRADITION AL Eileen May [id number] Eileen May 10/12/2023 [facility] Eileen Jh Guy [id number] Eileen May 12/06/2023 1 [place] Eileen Jh Guy [id number] Eileen May Notes Date Note Type Note Provider Name and Address Organization Details Recorded Time 08/11/2022 text/html [id number] is 5 years S/P L TKA preformed in January of 2016. She returns with no pain or concerns to her TKA. She does have a visable nodule to anterior aspect of knee that is painful to touch 8/10 and she feels is causing her difficulty walking. She is inpatient at [facility] and comes ambualtign in wheelchair today. [...] evaluation and treatment options. SARAHI HOUGH PA-C [address] [place] [address], [address], [facility] 08/11/2022 13:06:31 09/01/2022 text/html 09/01/2022MrsSebastian May is 5 years S/P L TKA preformed in January of 2016 returns to discuss [facility] results. She comes to appointment accompanied by caregiver from [facility]. She remains using wheelchair. Since last [...] mg b.i.d for pain with no benefit. [id number] is 5 years S/P L TKA preformed in January of 2016. She returns with no pain or concerns to her TKA. She does have a visable nodule to anterior aspect of knee that is painful to touch 8/10 and she feels is causing her difficulty walking. She is inpatient at [facility] and comes ambualtign in wheelchair today. [...] evaluation and treatment options. SARAHI HOUGH PA-C [address] [place], [address], [facility] 09/01/2022 13:56:37 09/27/2023 text/html 09/27/23 Mrs. May is present for routine evaluation of L TKA 02/18/2016. She comes to appointment accompanied by caregiver from [facility]. Patient does have known history of [...] 5/325 mg b.i.d PRN LISA STORY PA-C [address] [place], [address], [facility] 09/27/2023 16:09:08 10/25/2023 text/html [id number] returns today in follow-up for her chronic [...] ago. Shortly thereafter, she was readmitted to [facility] in acute renal failure. That improved with [...] comes to appointment accompanied by caregiver from [facility]. Patient does have known history of [...] in January of 2016 returns to discuss [facility] results. She comes to appointment accompanied by caregiver from [facility]. She remains using wheelchair. Since last visit she voices increased swelling that since subsided with use of elevation and ICE but increased pain severity of 7/10 especially when trying to bear weight. [id number] is 5 years S/P L TKA preformed in January of 2016. She returns with no pain or concerns to her TKA. She does have a visable nodule to anterior aspect of knee that is painful to touch 8/10 and she feels is causing her difficulty walking. She is inpatient at [facility] and comes ambualtign in wheelchair today. [...] and treatment options. SUZIE RODRIGUEZ MD [address] [place], [address], [facility] 10/30/2023 11:53:31 OBGyn Episode No OBEpisode recorded.
--- OUTSIDE RECORDS SUMMARY | 2025-02-21 10:21 | XMS_ITS | Encounter Summary ---
Author Organization [facility] Address [address] [place] [address] Care Team Providers Care Supervisor Dental Laboratory Name Role Phone Daniel Barba MD Primary Care Provider [phone] Judy Huff LEAF CONDITIONER Unavailable Unavailabl e Cayla Erazo APRN, DNP Unavailable [phone] Vignesh Pickens MD Primary Care Provider + [phone] Encounter Details Date Type Department Care Team (Late st Contact Info) Description 07/28/2022 Orders Only External Location [address] [place] [address] Gregg Morgan MD [address] [place] [address] Social History Tobacco Use Types [...] Description 03/07/2025 10:00 AM EDT Office Visit [place] [facility] [address] [place] [address] Doug Chapman MD [address] [place] [address] 03/27/2025 10:30 AM EDT Appointment [facility] Ultrasound [address] 2nd [place] [address] 03/27/2025 11:50 AM EDT Clinical Support Medical Office Building Lab [address] [place] [address] 03/27/2025 1:00 PM EDT Office Visit Medical Office Building Urology [address] [facility], [address] [place] [address] Cayla Erazo, SPECIAL DELIVERY WORKER, DNP [address] [place] [address] 05/16/2025 8:00 AM EDT Office Visit [facility] [place] [address] [facility], [address] [place] [address] Karly Gracia MD [address] [place] [address] 06/07/2025 1:00 PM EDT Office Visit [facility] [address] [place] [address] Tom Iraheta MD [address] [place] [address] documented as of this encounter [...] as of this encounter Care Teams Supervisor Dental Laboratory Relationship Specialty Start Date End Date Daniel Barba MD [address] [place] [address] PCP - General 01/02/21 12/30/24 Vignesh Pickens MD [address] [place] [address] PCP - General 12/31/24 Judy Huff, LEAF CONDITIONER [facility] TCM Nurse 08/24/24 08/24/24 Cayla Erazo APRN, FREDERICK [address] [facility] [address] [place] [address] Nurse Practitioner Urology 12/20/24 documented as of this encounter
[2025-02-21 11:21] LABS: Chloride 83 mmol/L (98-107); Potassium 4.8 mmoL/L (3.5-5.1); Sodium 122 mmol/L (136-145)
[2025-02-21 11:24] LABS: Anion Gap 17.8 mEq/L (5-15); Blood Urea Nitrogen 42 mg/dl (7-17); Calcium 8.6 mg/dl (8.4-10.2); Carbon Dioxide 26 mmol/L (22.0-30.0); Creatinine,Serum 2.60 mg/dl (0.52-1.04); Estimated Glomerular Filt Rate 18 ml/min (>60); GFR (African American) 22 ML/MIN (>60); Glucose 228 mg/dl (74-100)
== END 2025-02-21 23:59 | disposition home or self-care (01) ==
LOC: LAB.DROPOF 10:17
PROVIDERS: PCP Family Medicine; Visit Provider Family Medicine
DX: E87.1 Hypo-osmolality and hyponatremia (principal)
CPT/HCPCS: 80048

== ENCOUNTER 2025-02-22 07:02 | Outpatient (CLI) | payer MEDICARE, MEDICAID, SELFPAY ==
--- OUTSIDE RECORDS SUMMARY | 2024-12-20 09:20 | XMS_ITS | Encounter Summary ---
Author Organization [facility] Address [address] [place] [address] Care Team Providers Care Director [employer] Name Role Phone Daniel Barba MD Primary Care Provider [phone] Cayla Erazo APRN, DNP Unavailable [phone] Vignesh Pickens MD Primary Care Provider [phone] Reason for Referral * Imaging (Routine) - Closed Specialty Diagnoses / Procedures Referred By Clara stoner Referred To Contact Radiology Diagnoses Gross hematuria Procedures CT Urogram Cayla Erazo APRN, DNP [address] [address] Phone: tel: fax: Referral ID Status Reason Start Date Expiration Date Visits Re quested Visits Authorized [id number] Closed 12/25/2024 06/26/2026 1 1 * Other Medical (Routine) - Pending Review Specialty Diagnoses / Procedures Referred By Clara stoner Referred To Contact Urology Diagnoses Gross hematuria Procedures Cysto- Urology Cayla Erazo APRN, DNP [address] [address] Phone: tel: fax: Referral ID Status Reason Start Date Expiration Date V isits Requested Visits Authorized [id number] Pending Review 12/25/2024 06/26/2026 1 1 * Imaging (Routine) - Authorized Specialty Diagnoses / Procedures Referred By Clara stoner Referred To Contact Radiology Diagnoses Hydronephrosis, unspecified hydronephrosis type Procedures US Renal Complete Cayla Erazo APRN, DNP [address] [address] Phone: tel: fax: Referral ID Status Reason Start Date Expiration Date V isits Requested Visits Authorized [id number] Authorized 12/20/2024 06/21/2026 1 1 Reason for Visit * Reason Comments Female Incontinence * Other Medical (Routine) - Closed Specialty Diagnoses / Procedures Referred By Clara stoner Referred To Contact Urology Diagnoses Hydronephrosis, unspecified hydronephrosis type Urinary retention Procedures UDS Cayla Erazo APRN, DNP [address] [address] Phone: tel: fax: Referral ID Status Reason Start Date Expiration Date Visits Re quested Visits Authorized [id number] Closed 11/08/2024 05/10/2026 1 1 Encounter Details Date Type Department Care Team (Latest Contact Info) Description 12/20/2024 9:20 AM EDT Office Visit [facility] [address] [place] [address] Cayla Erazo APRN, DNP [address] [address] Recurrent UTI (Primary Dx); Hydronephrosis, unspecified [...] any time in the past 12 m [facility], were you homeless or living in a m[facility] (including now)? No 08/20/2024 CAGE ASSESSMENT Answer [...] drink first t rodríguez in the morning (EYE-HOPPER FILLER) to steady your nerves or to get rid of a hangover? 0 08/15/2024 CAGE Questionnaire Score 0 024 Utilities Answer Date Recorded In the past 12 months has e [employer], gas, oil, or water [employer] threatened to shut off services in your [...] Notes * Progress Notes - Cayla Erazo, COPY LATHE TENDER, DNP - 12/20/2024 9:20 AM EDTAssociated Order(s): UDS Pre-Procedure Diagnose(s): Hydronephrosis, unspecified hydronephrosis type; Urinary retention Post-Procedure Diagnose(s): Hydronephrosis, unspecified hydronephrosis type; Urinary retention [facility] Note CC: Female Incontinence HPI: Eileen Tovar is a 64 y.o. F who was initially evaluated in Sep 2024 for diagnosis ofbilateral hydronephrosis in Jul 2024 thought to be 2/2 severe constipation. She was treated for UTIwhile inpatient at [facility] and had improvement in renal function and hydronephrosis with indwelling Parekh catheter that was removed prior to discharge to [facility] in [place]. She is a limited historian, presented in a wheelchair, and is accompanied by a staff member from [facility] without further information provided. She was most [...] useof LUE. She also has PVD, COPD, [place], and DVT treated with 2 blood thinners. She denies ever being impacted with stool before and reportedly sees an outside urologist/equipment operation instructor who presents to the SNF, but could [...] were no vitals filed for this visit. 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 Imagin10/05/23: [facility]OMEO at [place] resulted moderate cortical thinning of kidneys and [...] DNP Authorized by: Cayla Erazo APRN, DNP [place] Protocol: Time out called at: 12/20/2024 10:28 [...] Essential (primary) hypertension CAD (coronary artery disease), [place] coronary artery Controlled diabetes mellitus type II without complication Iron deficiency anemia Second hand smoke exposure Acute kidney injury superimposed on CKD ([facility]/HCC) Arthritis Cellulitis of left knee Chronic respiratory failure COPD (chronic obstructive pulmonary disease) ([facility]) Dehydration with hyponatremia Diabetes mellitus ([facility]/HCC) Hyperlipidemia Restrictive lung disease Stroke ([facility]) [place] coma scale total score 13-15, unspecified coma timing Pyelonephritis Kidney infection Acquired absence of leg above knee Stage 3 chronic kidney disease ([facility]/HCC) Type 2 diabetes mellitus with diabetic chronic kidney disease ([facility]/HCC) Peripheral vascular disease, unspecified ([facility]/HCC) Prosthetic joint infection ([facility]/HCC) Unspecified hydronephrosis Vitamin D deficiency, unspecified Disorder [...] BREAST SURGERY N/A Breast Surgery Reconstruction from [facility] BREAST SURGERY N/A Breast Surgery from [facility] CHOLECYSTECTOMY N/A Cholecystotomy from [facility] KIDNEY SURGERY N/A Kidney Surgery from [facility] KNEE SURGERY N/A Knee Surgery from [facility] MASTECTOMY N/A Breast Surgery Mastectomy from [facility] SHOULDER SURGERY Right Shoulder Surgery Right from [...] Description 03/07/2025 10:00 AM EDT [facility] [address] [place] [id number] Doug Chapman MD [address] [address] 03/27/2025 10:30 AM EDT Appointment [facility] Ultrasound [address] [place] [address] 03/27/2025 11:50 AM EDT Clinical Support Medical Office Building Lab [address] [place] [address] 03/27/2025 1:00 PM EDT Office Visit Medical [facility] Building Urology [address], [address] [place] [address] Cayla Erazo APRN, DNP [address] [address] 05/16/2025 8:00 AM EDT Office Visit [facility] [place] [address], [address] [place] [address] Karly Gracia MD [address] [place] [address] 06/07/2025 1:00 PM EDT Office Visit [facility] [address] [place] [address] Tom Iraheta MD [address] [place] [address] Scheduled Orders Name Type Priority [...] EDT Hydronephrosis, unspecified hydronephrosis type Urinary retention [place] COMPLEX CYSTOMETROGRAM W/VOID PRESS&URETHRAL PROFILE Routine 12/20/2024 [...] following split bolus administration of IV contrast, [id number], 150 mL. Reformatted images in the coronal [...] Per this written report. Drafted by Jin Moirn MD on 01/03/2025 3:24 PM Final report signed by Jin Morin MD on 01/03/2025 3:33 PM Cayla Erazo COPY LATHE TENDER, DNP IMG CT PROCEDURES Final Result * Urine Culture - Clinic Collect (12/20/2024 2:33 PM EDT) Culture <10,000 CFU/mL Mixed urogenital, fecal, or skin jesus present. 12/21/2024 2:41 PM EDT [facility] Urine Urine specimen / Unknown Non-blood Collection / Unknown 12/20/2024 2:33 PM EDT 12/20/2024 3:16 PM EDT us Cayla Erazo COPY LATHE TENDER, DNP LAB MICROBIOLOGY - GENER AL ORDERABLES Final Result [facility] [address] [place] [address] * (ABNORMAL) Basic Metabolic Panel, Plasma (12/20/2024 11:54 AM EDT) Glucose, Plasma 226(H) 74 - 99 mg/dL 12/20/2024 1:19 PM EDT [facility] BUN, Plasma 34(H) 8 - 23 mg/dL 12/20/2024 1:19 PM EDT [facility] Creatinine, Plasma 1.82(H) 0.60 - 1.10 mg/dL 12/20/2024 1:19 PM EDT [facility] BUN/Creatinine Ratio 12/20/2024 1:19 PM EDT [facility] Sodium, Plasma 134(L) 136 - 145 mmol/L 12/20/2024 1:19 PM EDT [facility] Potassium, Plasma 4.8 3.6 - 4.9 mmol/L 12/20/2024 1:19 PM EDT [facility] Chloride, Plasma 94(L) 97 - 107 mmol/L 12/20/2024 1:19 PM EDT [facility] CO2, Plasma 28 22 - 29 mmol/L 12/20/2024 1:19 PM EDT [facility] Anion Gap 12 6 - 16 mmol/L 12/20/2024 1:19 PM EDT [facility] Total Calcium, Plasma 10.0 8.9 - 10.2 mg/dL 12/20/2024 1:19 PM EDT [facility] eGFRcr 30.5 mL/min/1.7 3m*2 12/20/2024 1:19 PM EDT [facility] Comment:Reported eGFRcr in m L/min/1.73m2 is based the CKD-EPI 2020 equation that does not use a race coefficient. Blood Venous blood specimen / Unknown Venipuncture / Unknown 12/20/2024 11:54 AM EDT 12/20/2024 11:55 AM EDT Cayla Erazo APRN, DNP LAB BLOOD ORDERABLES Andi al Result [facility] [address] [place] [address] * INJECTION FOR BLADDER XRAY WITHOUT VOIDING, [place] COMPLEX CYSTOMETROGRAM W/VOID PRESS&URETHRAL PROFILE, UROLOGY UDS WITH BASE PERFORMABLE CHARGES (12/20/2024 10:28 AM EDT) Narrative Cayla Erazo APRN, DNP - 12/20/2024 10:28 AM EDT Cayla Erazo APRN, DNP 01/04/2025 2:40 PM UDS Date/Time: 12/20/2024 10:28 AM Performed by: Cayla Erazo APRN, DNP Authorized by: Cayla Erazo APRN, DNP [place] Protocol: Time out called at: 12/20/2024 10:28 [...] 1034, Until Hermelinda 12/20/24 at 1034, Routine, IntraprocedureIndications:[place] nephrosis, unspecified hydronephrosis type,Urinary retention Given by Other 12/20/2024 10:34 AM EDT 500 mL documented in this encounter Additional Health Concerns Infection Onset Date Last Indicated 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/26/2024 Assessment Noted Time PHQ-9 Depression Total Score: 13 025 10:12 AM EST A fall risk assessment has been complete d for the patient 12/20/2024 9:50 AM EDT A Body Mass Index follow-up plan has been documented for the patient 12/25/2024 9:50 PM EDT documented as of this encounter Care Teams Director [employer] Relationship Specialty Start Date End Date Daniel Barba MD [address] [place] [address] PCP - General 01/02/21 12/30/24 Vignesh Pickens MD [address] [place] [address] PCP - General 12/31/24 Cayla Erazo APRN, DNP [address] [place] [address] Nurse Practitioner Urology 12/20/24 documented as of this encounter
--- OUTSIDE RECORDS SUMMARY | 2024-12-31 14:01 | XMS_ITS | Encounter Summary ---
Author Organization [facility] Address [address] [place] [address] Care Team Providers Care Speedboat Driver Name Role Phone Cayla Erazo APRN, DNP Unavailable [phone] Vignesh Pickens MD Primary Care Provider [phone] Reason for Referral * Imaging (Routine) - Closed Specialty Diagnoses / Procedures Referred By Clara t Referred To Contact Cardiology Diagnoses S/P AKA (above knee amputation) bilateral (CMS/HCC) Encounter for surgical aftercare following surgery on the circulatory system Procedures VAS Ankle Brachial Index - Segmental Karly Gracia MD [address] [place] [address] Phone: tel: fax: Referral ID Status Reason Start Date Expiration Date V isits Requested Visits Authorized [id number] Closed Perform Procedure 11/08/2024 05/10/2026 1 1 Reason for Visit * Imaging (Routine) - Closed Specialty Diagnoses / Procedures Referred By Clara stoner Referred To Contact Cardiology Diagnoses S/P AKA (above knee amputation) bilateral (CMS/HCC) Encounter for surgical aftercare following surgery on the circulatory system Procedures VAS Ankle Brachial Index - Segmental Karly Gracia MD [address] [place] [address] Phone: tel: fax: Referral ID Status Reason Start Date Expiration Date V isits Requested Visits Authorized [id number] Closed Perform Procedure 11/08/2024 05/10/2026 1 1 Encounter Details Date Type Department Care Team (Latest Contact Info) Description 12/31/2024 2:01 PM EDT - 12/31/2024 11:59 PM EDT Hospital Encounter [facility] Vascular Lab [address] 5th Floor [address], [address] [place] [address] S/P AKA (above knee amputation) bilateral (CMS/HCC); [...] any time in the past 12 m [facility], were you homeless or living in a jail (including now)? No 08/20/2024 CAGE ASSESSMENT Answer [...] drink first t rodríguez in the morning (EYE-FIRST AID OFFICER) to steady your nerves or to get [...] Description 03/07/2025 10:00 AM EDT Office Visit [facility] Urology [address]nd [place] [address] Doug Chapman MD [address] [facility] [address] [place] [address] 03/27/2025 10:30 AM EDT Appointment [facility] Ultrasound [address]nd [place] [address] 03/27/2025 11:50 AM EDT Clinical Support Medical Office Building Lab [address] [place] [address] 03/27/2025 1:00 PM EDT Office Visit [facility] Urology [address], [address] [place] [address] Cayla Erazo, APPROVER, DNP [address] [place] [address] 05/16/2025 8:00 AM EDT Office Visit [facility] [place] [address], [address] [place] [address] Karly Gracia MD [address] [place] [address] 06/07/2025 1:00 PM EDT Office Visit [facility] [address] [place] [address] Tom Iraheta MD [address] [place] [address] documented as of this encounter [...] are demonstrated at the levels of the POWER HOUSE ENGINEER, GEOPHYSICAL LABORATORY CHIEF and DPA. Segmental pressures are within normal limits with a GEOPHYSICAL LABORATORY CHIEF JASEN of 0.98 (138 mmHg) and a DPA JASEN of 1.28 (181 mmHg). Digit pressures are 115 mmHg. Left: AKA is noted. Multiphasic waveforms are demonstrated at the level of the POWER HOUSE ENGINEER. 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 COMPARISON: None. FINDINGS: Right: Multiphasic waveforms are demonstrated at the levels of the POWER HOUSE ENGINEER,GEOPHYSICAL LABORATORY CHIEF and DPA. Segmental pressures are within normal limits with a GEOPHYSICAL LABORATORY CHIEF ABIof 0.98 (138 mmHg) and a DPA JASEN of 1.28 (181 mmHg). Digit pressures end726 mmHg. Left: AKA is noted. Multiphasic waveforms are demonstrated at the level ofthe POWER HOUSE ENGINEER. IMPRESSION: Right: Normal study; No evidence of [...] documented as of this encounter Care Teams Speedboat Driver Relationship Specialty Start Date End Date Vignesh Pickens MD [address] [place] [address] PCP - General 12/31/24 Cayla Erazo APRN, DNP [address] [facility] [address] [place] [address] Nurse Practitioner Urology 12/20/24 documented as of this encounter
--- OUTSIDE RECORDS SUMMARY | 2024-12-31 14:01 | XMS_ITS | Encounter Summary ---
Author Organization [facility] Address [address] [place] [address] Care Team Providers Care Health Records Technology Teacher Name Role Phone Cayla Erazo APRN, FREDERICK Unavailable [phone] Vignesh Pickens MD Primary Care Provider [phone] Reason for Referral * Imaging (Routine) - Closed Specialty Diagnoses / Procedures Referred By Contac t Referred To Contact Cardiology Diagnoses Coronary artery disease involving red devil heart without angina pectoris, unspecified vessel or lesion type S/P AKA (above knee amputation) bilateral (CMS/HCC) Acute left arterial ischemic stroke, ICA (internal carotid artery) (CMS/HCC) Procedures VAS US Carotid Duplex Bilateral Stent Karly Gracia MD [address] [place] [address] Phone: tel: fax: Referral ID Status Reason Start Date Expiration Date V isits Requested Visits Authorized [id number] Closed Perform Procedure 11/08/2024 05/10/2026 1 1 Reason for Visit * Imaging (Routine) - Closed Specialty Diagnoses / Procedures Referred By Contac t Referred To Contact Cardiology Diagnoses Coronary artery disease involving red devil heart without angina pectoris, unspecified vessel or lesion type S/P AKA (above knee amputation) bilateral (CMS/HCC) Acute left arterial ischemic stroke, ICA (internal carotid artery) (CMS/HCC) Procedures VAS US Carotid Duplex Bilateral Stent Karly Gracia MD [address] [place] [address] Phone: tel: fax: Referral ID Status Reason Start Date Expiration Date V isits Requested Visits Authorized [id number] Closed Perform Procedure 11/08/2024 05/10/2026 1 1 Encounter Details Date Type Department Care Team (Latest Contact Info) Description 12/31/2024 2:01 PM EDT - 12/31/2024 11:59 PM EDT Hospital Encounter [facility] Vascular Lab [address] [facility] 5th Floor [address] [place] [address] Coronary artery disease involving red devil heart without angina pectoris, unspecified vessel or lesion type; S/P AKA (above knee amputation) bilateral ([facility]); Acute left arterial ischemic stroke, ICA (internal carotid artery) ([facility]) Discharge Disposition: Home or Self Care Social [...] any time in the past 12 m [facility], were you homeless or living in a [...] Have you had a drink first t rodrígeuz in the morning (EYE-RENEWALS MANAGER) to steady your nerves or to get rid of a hangover? 0 08/15/2024 CAGE Questionnaire Score 0 024 Utilities Answer Date Recorded In the past 12 months has th e [employer] gas, oil, or water [employer] threatened to shut off services in your [...] Description 03/07/2025 10:00 AM EDT Office Visit [facility] Urology [address] [place] [address] Doug Chapman MD [address] [address] 03/27/2025 10:30 AM EDT Appointment [facility] Ultrasound [address]nd [place] [address] 03/27/2025 11:50 AM EDT Clinical Support [facility] Building Lab [address] [place] [address] 03/27/2025 1:00 PM EDT Office Visit Medical Office Building Urology [address] [facility], [address] [place] [address] Cayla Erazo, OTORHINOLARYNGOLOGIST, DNP [id number] [place] [address] 05/16/2025 8:00 AM EDT Office Visit [facility] [place] [address] [facility] [address], [address] [place] [address] Karly Gracia MD [address] [place] [address] 06/07/2025 1:00 PM EDT Office Visit [place] [id number] [facility] [address] [address] Tom Iraheta MD [address] [place] [address] documented as of this encounter Procedures Procedure Name Priority Date/Time Associated Diagnosis Comments VAS US CAROTID DUPLEX BILATERAL Routine 12/31/2024 2:27 PM EDT Coronary artery disease involving red devil heart without angina pectoris, unspecified vessel or lesion type S/P AKA (above knee amputation) bilateral (CMS/HCC) Acute left arterial ischemic stroke, ICA (internal carotid artery) ([facility]) documented in this encounter Results * VAS [...] Visit Diagnoses Diagnosis Coronary artery disease involving red devil heart without angina pectoris, unspecified vessel or [...] documented as of this encounter Care Teams Health Records Technology Teacher Relationship Specialty Start Date End Date Vignesh Pickens MD [address] [place] [address] PCP - General 12/31/24 Cayla Erazo, LIZANDRO, DNP [address] [place] [address] Nurse Practitioner Urology 12/20/24 documented as of this encounter
--- OUTSIDE RECORDS SUMMARY | 2024-12-31 16:00 | XMS_ITS | Encounter Summary ---
Author Organization [facility] Address [address] [place] [address] Care Team Providers Care Stock Pitcher Name Role Phone Cayla Erazo APRN, DNP Unavailable [phone] Vignesh Pickens MD Primary Care Provider [phone] Reason for Referral * Imaging (Routine) - Pending Review Specialty Diagnoses / Procedures Referred By Contac t Referred To Contact Cardiology Diagnoses Asymptomatic bilateral carotid artery stenosis Procedures VAS US Carotid Duplex Bilateral Stent Ro Montaño PA [address] [place] [address] Phone: tel: fax: Referral ID Status Reason Start Date Expiration Date Visits Requested Visits Authorized [id number] Pending Review Perform Procedure 12/31/2024 07/02/2026 1 1 Reason for Visit * Reason Comments Coronary artery disease involving [place] heart without gertrude S/P AKA (above knee amputation) bilatera l Acute left arterial ischemic stroke, ICA (internal carotid * Consultation (Urgent) - Closed Specialty Diagnoses / Procedures Referred By Contact Referred To Contact Vascular Surgery / [facility] Diagnoses Coronary artery disease involving [place] heart without angina pectoris, unspecified vessel or lesion type Karly Gracia MD [address] [place] [address] Phone: tel:[phone] fax:[phone] [facility] [address] [place] [address] Phone: tel: fax: Referral ID Status Reason Start Date Expiration Date V isits Requested Visits Authorized [id number] Closed Specialty Services Required 11/05/2024 05/07/2026 1 1 Encounter Details Date Type Department Care Team (Latest Contact Info) Description 12/31/2024 4:00 PM EDT Office Visit [facility] [address] [place] [address] Bert Canela MD [address] [facility] [address] [place] [address] Asymptomatic bilateral carotid artery stenosis (Primary Dx); PVD (peripheral vascular disease) ([facility]); Hx of AKA (above knee amputation), left ([facility]); History of stroke; Type 2 diabetes mellitus without complication, unspecified whether rat exterminator insulin use Social History Tobacco Use Types [...] any time in the past 12 m [facility], were you homeless or living in a retirement (including now)? 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 or to get [...] Hx of AKA (above knee amputation), left ([facility]) 12/31/2024 PVD (peripheral vascular disease) ([facility]) 12/31/2024 Asymptomatic bilateral carotid artery stenosis 12/31/2024 Other specified cardiac arrhythmias 11/05/2024 Cerebral infarction due to unspecified occlusion or stenosis of left carotid arteries ([facility]) 11/05/2024 Hypertensive chronic kidney disease with stage 1 through stage 4 chronic kidney disease, or unspecified chronic kidney disease 10/12/2024 Urinary incontinence without sensory awareness 10/12/2024 Anemia in chronic kidney disease 10/12/2024 Chronic kidney disease, stage 3a ([facility]) 10/12/2024 Urinary retention 09/26/2024 Recurrent UTI 09/26/2024 Post-menopausal atrophic vaginitis 09/26/2024 Cyst of kidney, acquired 09/21/2024 Insomnia, unspecified 09/21/2024 Pain, unspecified 08/22/2024 Unspecified hydronephrosis 08/21/2024 Tubulo-interstitial nephritis, not specified as acute or chronic 08/21/2024 Other disorders of phosphorus metabolism 08/21/2024 Hypertensive heart and chronic kidney disease with heart failure and stage 1 through stage 4 chronic kidney disease, or unspecified chronic kidney disease ([facility]) 08/21/2024 Glycosuria 08/20/2024 Type 2 diabetes mellitus with diabetic chronic kidney disease ([facility]) 08/19/2024 Other nonspecific abnormal finding of lung field 08/19/2024 Stage 3 chronic kidney disease ([facility]) 08/17/2024 Hydronephrosis with renal and ureteral calculous obstruction 08/17/2024 Kidney infection 08/16/2024 Dave coma scale total score 13-15, unspecified coma timing 08/15/2024 Pyelonephritis 08/15/2024 Unspecified abdominal pain 08/15/2024 Old myocardial infarction 08/15/2024 Calculus of kidney 08/15/2024 Fecal impaction ([facility]) 08/14/2024 Constipation, unspecified 08/14/2024 Headache, unspecified 08/14/2024 Nontoxic single thyroid nodule 07/10/2024 Edema, unspecified 07/02/2024 Tinea unguium 06/07/2024 Pain in right toe(s) 06/07/2024 Pain in left toe(s) 06/07/2024 Disorder of kidney and ureter, unspecified 04/25/2024 Secondary hyperparathyroidism of renal origin ([facility]) 04/09/2024 Dysuria 04/09/2024 Adult failure to thrive 04/02/2024 Vitamin D deficiency, unspecified 12/21/2023 Acquired absence of leg above knee 12/13/2023 Peripheral vascular disease, unspecified ([facility]) 12/13/2023 Weakness 12/13/2023 Unspecified right bundle-branch block 12/09/2023 Other acute postprocedural pain 12/09/2023 Mixed simple and mucopurulent chronic bronchitis ([facility]) 12/05/2023 Other specified disorders of the skin and subcutaneous tissue 11/29/2023 Morbid (severe) obesity due to excess calories ([facility]) 10/31/2023 Atrial premature depolarization 10/08/2023 Hyperkalemia 10/05/2023 Hemiplegia and hemiparesis following cerebral infarction affecting left non- dominant side ([facility])10/04/2023 Dyspnea, unspecified 10/04/2023 Chronic diastolic (congestive) heart failure ([facility]) 10/04/2023 Presence of left artificial knee joint 09/27/2023 Acute kidney injury superimposed on CKD ([facility]) 01/04/2023 Arthritis 01/04/2023 Cellulitis of left knee 01/04/2023 Chronic respiratory failure 01/04/2023 COPD (chronic obstructive pulmonary disease) ([facility]) 01/04/2023 Dehydration with hyponatremia 01/04/2023 Diabetes mellitus ([facility]) 01/04/2023 Hyperlipidemia 01/04/2023 Restrictive lung disease 01/04/2023 Stroke ([facility]) 01/04/2023 Second hand smoke exposure 10/04/2022 Iron deficiency anemia 03/01/2022 Hypotension 06/03/2017 GERD without esophagitis 03/28/2017 CAD (coronary artery disease), [place] coronary artery 03/28/2017 Controlled diabetes mellitus type [...] amputation), left (CMS/HCC) PVD (peripheral vascular disease) ([facility]) Asymptomatic bilateral carotid artery stenosis - Primary [...] Description 03/07/2025 10:00 AM EDT Office Visit [place] [facility] [address] [place] [address] Doug Chapman MD [address] [facility] [address] [place] [address] 03/27/2025 10:30 AM EDT Appointment [facility] Ul[facility] [address] [place] [address] 03/27/2025 11:50 AM EDT Clinical Support Medical Office Building Lab [address] [place] [address] 03/27/2025 1:00 PM EDT Office Visit Medical Office Building Urology [address], [address] [place] [address] Cayla Erazo, BAND CUTTING MACHINE OPERATOR, DNP [address] [facility] [address] [place] [address] 05/16/2025 8:00 AM EDT Office Visit [facility] [place] [address], [address] [place] [address] Karly Gracia MD [address] [place] [address] 06/07/2025 1:00 PM EDT Office Visit [facility] [address] [place] [address] Tom Iraheta MD [address] [place] [address] Scheduled Orders Name Type Priority [...] 2 diabetes mellitus without complication, unspecified whether rat exterminator insulin use documented in this encounter Additional [...] documented as of this encounter Care Teams Stock Pitcher Relationship Specialty Start Date End Date Vignesh Pickens MD [address] [place] [address] PCP - General 12/31/24 Cayla Erazo APRN, FREDERICK [address] [facility] [address] [place] [address] Nurse Practitioner Urology 12/20/24 documented as of this encounter
--- OUTSIDE RECORDS SUMMARY | 2025-01-03 14:15 | XMS_ITS | Encounter Summary ---
Author Organization [facility] Address [address] [place] [address] Care Team Providers Care Airplane Pilot Photogrammetry Name Role Phone Cayla Erazo APRN, DNP Unavailable Vignesh Pickens MD Primary Care Provider [phone] Reason for Referral * Imaging (Routine) - Closed Specialty Diagnoses / Procedures Referred By Clara stoner Referred To Contact Radiology Diagnoses Gross hematuria Procedures CT Urogram Cayla Erazo APRN, DNP [address] [address] Phone: tel: fax: Referral ID Status Reason Start Date Expiration Date Visits Re quested Visits Authorized [id number] Closed 12/25/2024 06/26/2026 1 1 Reason for Visit * Imaging (Routine) - Closed Specialty Diagnoses / Procedures Referred By Clara stoner Referred To Contact Radiology Diagnoses Gross hematuria Procedures CT Urogram Cayla Erazo APRN, DNP [address] [address] Phone: tel: fax: Referral ID Status Reason Start Date Expiration Date Visits Re quested Visits Authorized [id number] Closed 12/25/2024 06/26/2026 1 1 Encounter Details Date Type Department Care Team (Latest Contact Info) Description 01/03/2025 2:15 PM EDT - 01/03/2025 11:59 PM EDT Hospital Encounter [facility] CT [address]nd [place] [address] Gross hematuria Discharge Disposition: Home or Self [...] any time in the past 12 m [facility], were you homeless or living in a care home (including now)? No 08/20/2024 CAGE ASSESSMENT Answer [...] drink first t rodríguez in the morning (EYE-SAFETY INSTRUCTION POLICE OFFICER) to steady your nerves or to get rid of a hangover? 0 08/15/2024 CAGE Questionnaire Score 0 024 Utilities Answer Date Recorded In the past 12 months has th e [employer], gas, oil, or water [employer] threatened to shut off services in your [...] Description 03/07/2025 10:00 AM EDT Office Visit [facility] Urology [address], [address] [place] [phone] Doug Chapman MD [address] [place] [address] 03/27/2025 10:30 AM EDT Appointment [facility] Ultrasound [address] [place] [address] 03/27/2025 11:50 AM EDT Clinical Support Medical Office Building Lab [address] [place] [address] 03/27/2025 1:00 PM EDT Office Visit Medical Office Building Urology [address] [facility], [address] [place] [address] Cayla Erazo APRN, FREDERICK [address] [facility] [address] [place] [address] 05/16/2025 8:00 AM EDT Office Visit [facility] [place] [address] [facility], [address] [place] [address] Karly Gracia MD [address] [place] [address] 06/07/2025 1:00 PM EDT Office Visit [facility] [address] [place] [address] Tom Iraheta MD [address] [place] [address] documented as of this encounter [...] following split bolus administration of IV contrast, [id number], 150 mL. Reformatted images in the coronal [...] MD on 01/03/2025 3:33 PM Cayla Erazo ART CONSULTANT, [facility] IMG CT PROCEDURES Final Result documented [...] documented as of this encounter Care Teams Airplane Pilot Photogrammetry Relationship Specialty Start Date End Date Vignesh Pickens MD [address] [place] [address] PCP - General 12/31/24 Cayla Erazo APRN, FREDERICK [phone] [place] [address] Nurse Practitioner Urology 12/20/24 documented as of this encounter
--- OUTSIDE RECORDS SUMMARY | 2025-01-24 14:00 | XMS_ITS | Encounter Summary ---
Author Organization [facility] Address [address] [place] [address] Care Team Providers Care Warp Worker Name Role Phone Cayla Erazo APRN, DNP Unavailable Vignesh Pickens MD Primary Care Provider [phone] Encounter Details Date Type Department Care Team (Late st Contact Info) Description 01/24/2025 2:00 PM EDT [facility] Testing [facility] [address], [address] [place] [address] Social History Tobacco Use Types Packs/Day Years [...] any time in the past 12 m [facility], were you homeless or living in [...] drink first t rodríguez in the morning (EYE-ENVIRONMENTAL PROGRAMS SPECIALIST) to steady your nerves or to get [...] mouth wide, with pt.'s nurse Gabriela at [facility], via phone. . Cardiovascular: CAD (s/p cardiac stents (2018).), carotid artery disease (asymptomatic Bilat. CHAVA. s/p left ICA stent (2013).), CHF (chronic diastolic CHF.), dysrhythmias (Hx RBBB.), hyperlipidemia, past [place] and PVD.Does not have angina, atrial fibrillation, [...] - CAD s/p PCI in 2017 in [facility] (records requested), ICM with LVEF 40-45% [...] Musculoskeletal: arthritis. Does not have multiple sclerosis. [facility]/Sk/Inte additional comments: Hx Left AKA in 11/2023 [...] INR 2.5 to 3.5 Prevention of recurrent [place] INR 2.5 to 3.5 INR 03/06/2014 1.0 (NOTE) OPTIMAL INR RANGES FOR PATIENT ON ORAL ANTICOAGULANT THERAPY Prevention of venous thromboembolism INR 2.0 to 3.0 In patients with heart disease: Atrial fibrillation INR 2.0 to 3.0 Valvular heart disease INR 2.0 to 3.0 Tissue heart valves INR 2.0 to 3.0 Mechanical prosthetic valves INR 2.5 to 3.5 Prevention of recurrent [place] INR 2.5 to 3.5 INR 03/05/2014 1.0 (NOTE) OPTIMAL INR RANGES FOR PATIENT ON ORAL ANTICOAGULANT THERAPY Prevention of venous thromboembolism INR 2.0 to 3.0 In patients with heart disease: Atrial fibrillation INR 2.0 to 3.0 Valvular heart disease INR 2.0 to 3.0 Tissue heart valves INR 2.0 to 3.0 Mechanical prosthetic valves INR 2.5 to 3.5 Prevention of recurrent [place] INR 2.5 to 3.5 Visit Vitals Wt 85.7 kg (189 lb) LMP (LMP Unknown) BMI 32.44 kg/m?? OB Status Postmenopausal Smoking Status Former BSA 1.97 m?? Physical Exam Airway Cardiovascular Dental Pulmonary Neurological (+) hemiplegia Skin Musculoskeletal Extremities Anesthesia Plan ASA 3 Anesthesia technique(s) discussed with the patient/family: general Comment: WAYLON phone screen with pt.'s nurse Gabriela, at [facility]. Discussed withDr. Wood and discussed with Dr. Ceci Mitchell, RE: holding Plavix and Xarelto. Pearl Chopra, GAS ENGINE OPERATOR [1] Past 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: Diagnosis Date Anxiety [...] BREAST SURGERY N/A Breast Surgery Reconstruction from [facility] BREAST SURGERY N/A Breast Surgery from [facility] CHOLECYSTECTOMY N/A Cholecystotomy from [facility] [employer] KIDNEY SURGERY N/A Kidney Surgery from [facility] [employer] KNEE SURGERY N/A Knee Surgery from [facility] MASTECTOMY N/A Breast Surgery Mastectomy from [facility] SHOULDER SURGERY Right Shoulder Surgery Right from [facility] [employer] [5] Allergies Allergen Reactions Sulfa Drugs Anaphylaxis Ultram [Tramadol] Swelling lips swell Hydrocodone Unknown - Patient states they do not know rxn details [facility] is unaware of what reaction. Pedi-Pre Tape [place] [Wound Dressing Adhesive] Rash Wellbutrin [Bupropion] Rash [...] card, photo ID, along with power of claims attorney, guardianship or advanced directives if applicable [...] Description 03/07/2025 10:00 AM EDT Office Visit [facility] Urology [address], [address] [place] [address] Doug Chapman MD [address] [place] [address] 03/27/2025 10:30 AM EDT Appointment [facility] Ultrasound [address], [address]nd [place] [address] 03/27/2025 11:50 AM EDT Clinical Support Medical Office Building Lab [facility] [place] [id number] 03/27/2025 1:00 PM EDT Office Visit Medical Office Building Urology [address], [address] [place] [address] Cayla Erazo APRN, DNP [address] [place] [address] 05/16/2025 8:00 AM EDT Office Visit [facility] [place] [address], [address] [place] [address] Karly Gracia MD [address] [place] [address] 06/07/2025 1:00 PM EDT Office Visit [facility] [address] [place] [address] Tom Iraheta MD [address] [place] [address] documented as of this encounter [...] documented as of this encounter Care Teams Warp Worker Relationship Specialty Start Date End Date Vignesh Pickens MD [address] [place] [address] PCP - General 12/31/24 Cayla Erazo APRN, DNP [address] [place] [address] Nurse Practitioner Urology 12/20/24 documented as of this encounter
--- OUTSIDE RECORDS SUMMARY | 2025-01-31 08:03 | XMS_ITS | Encounter Summary ---
Author Organization [facility] Address [address] [place] [address] Care Team Providers Care Rn Relief Charge Name Role Phone Cayla Erazo APRN, DNP Unavailable [phone] Vignesh Pickens MD Primary Care Provider [phone] Reason for Visit * Auth/Cert (Routine) Specialty Diagnoses / Procedures Referred By Contac t Referred To Contact Diagnoses Gross hematuria Gross hematuria Procedures ID CYSTO/URETERO/PYELOSC,BX &/OR FULG LESN URETEROSCOPY, WITH BIOPSY POSSIBLE STENT PLACEMENTS Ceci Mitchell MD [address] [address] Phone: tel: fax: P[facility] OPERATING ROOM [address] [place] [address] Phone: tel: Referral ID Status Reason Start Date Expiration Date Visits Re quested Visits Authorized [id number] 1 1 Encounter Details Date Type Department Care Team (Latest Contact Info) Description 01/31/2025 8:03 AM EDT - 01/31/2025 1:39 PM EDT Hospital Encounter [facility]PERATING ROOM [address] [place] [address] Ceci Mitchell MD [address] [address] Urinary retention (Primary Dx); Gross [...] any time in the past 12 m [facility], were you homeless or [...] drink first t rodríguez in the morning (EYE-PERSONAL COMPUTER NETWORK ANALYST) to steady your nerves or to get rid of a hangover? 0 08/15/2024 CAGE Questionnaire Score 0 024 Utilities Answer Date Recorded In the past 12 months has e [employer], gas, oil, or water company threatened to [...] confirm your location ahead of your appointment) [facility] Urology Department Clinic at [facility] [address] [address]nd Floor, [facility], [address] [place] [address] Clinic After Hours [facility] Office Building Urology [facility] [address] [place] [address] Clinic After Hours documented in this encounter [...] POSTOPERATIVE DIAGNOSIS: Same SURGEON: Ceci Mitchell MD SUBEDITOR SURGEON(S): Gerry Cullen DO, Doug Lundy MD [...] the start of the case. A 19 Zimbabwean rigid cystoscope was introduced into the patient's [...] of the renal pelvis. We advanced a [place] catheter over our sensor wire and performed [...] leave stents bilaterally with strings. Used 7 Zimbabwean by 24 cm double-J stents on strings. These were placed without difficulty and intraoperative fluoroscopy was used to confirm appropriate positioning with the proximal curls in the renal pelvises bilaterally in the distal curls in the bladder. An 18 Zimbabwean García catheter was placed at the conclusion [...] Cullen DO PGY-3, Department of Urology Pager: [phone] Cosigned by Ceci Mitchell MD at 01/31/2025 [...] (cerebral infarction) COPD (chronic obstructive pulmonary disease) ([facility]) Depression Fibromyalgia History of falling History of [...] BREAST SURGERY N/A Breast Surgery Reconstruction from [employer] BREAST SURGERY N/A Breast Surgery from [employer] CHOLECYSTECTOMY N/A Cholecystotomy from [employer] KIDNEY SURGERY N/A Kidney Surgery from [employer] KNEE SURGERY N/A Knee Surgery from [employer] MASTECTOMY N/A Breast Surgery Mastectomy from [employer] SHOULDER SURGERY Right Shoulder Surgery Right from [employer] [3] No medications prior to admission. [4] Allergies Allergen Reactions Sulfa Drugs Anaphylaxis Ultram [Tramadol] Swelling lips swell Hydrocodone Unknown - Patient states they do not know rxn details [facility] is unaware of what reaction. Pedi-Pre Tape [place] [Wound Dressing Adhesive] Rash Wellbutrin [Bupropion] Rash [...] Description 03/07/2025 10:00 AM EDT Office Visit [facility]rology [address], 2nd [place] [address] Doug Chapman MD [address] [place] [address] 03/27/2025 10:30 AM EDT Appointment [facility] Ultrasound [address], 2nd [place] [address] 03/27/2025 11:50 AM EDT Clinical Support Medical Office Building Lab [address] [place] [address] 03/27/2025 1:00 PM EDT Office Visit Medical Office Building Urology [address] [facility], [address] [place] [address] Cayla Erazo, METER REPAIRER HELPER, DNP [address] [place] [address] 05/16/2025 8:00 AM EDT Office Visit [facility] [place] [address] [facility], [address] [place] [address] Karly Gracia MD [address] [place] [address] 06/07/2025 1:00 PM EDT [facility] Visit [facility] [address] [facility] [address] [place] [address] Tom Iraheta MD [address] [place] [address] documented as of this encounter [...] Routine 01/31/2025 10:22 AM EDT Gross hematuria ID CYSTO/URETERO/PYELOS C,BX &/OR FULG LESN 01/31/2025 9:32 [...] Comment 01/31/2025 11:41 AM EDT HEALTHCARE LAB Element Burner ID Abbey Medina 01/31/2025 11:41 AM EDT HEALTHCARE LAB Device ID [id number] 01/31/2025 11:41 AM EDT HEALTHCARE LAB Specimen Type POC Capillary 01/31/2025 11:41 AM EDT HEALTHCARE LAB Blood Capillary blood specimen / Unknown 01/31/2025 11:39 AM EDT 01/31/2025 11:41 AM EDT us Ceci Mitchell MD LAB POINT OF CARE TE ST DOCKED DEVICE UNSOLICITED RESULTS Final Result HEALTHCARE LAB [address] [place] [address] * [place] Less than 1 Hour Intraoperative [...] Growth Maira glabrata(A) 02/08/2025 11:50 AM EDT [facility] Urine Urinary bladder structure / Unknown 01/31/2025 10:23 AM EDT 01/31/2025 11:38 AM EDT Comment:Pre-op diagnosis: Gross hematuria us Ceci Mitchell MD LAB MICROBIOLOGY - GENERAL O RDERABLES Final Result Performing Organization Address City/[facility]/[place] [address] * Urine Culture (01/31/2025 10:22 AM EDT) Pathologist [facility] Culture No growth at day 1 02/01/2025 8:02 AM EDT [facility] Urine Urinary bladder structure / Unknown 01/31/2025 10:22 AM EDT 01/31/2025 11:38 AM EDT Comment:Pre-op diagnosis: Gross hematuria us Ceci Mitchell MD LAB MICROBIOLOGY - GENERAL O RDERABLES Final Result Performing Organization Address [facility] [place] [address] * (ABNORMAL) POCT glucose meter (01/31/2025 8:47 [...] 01/31/2025 8:49 AM EDT [facility] Element Burner ID Khai Jamison 02/01/20 8:49 AM EDT HEALTHCARE LAB Device ID [id number] 01/31/2025 8:49 AM EDT HEALTHCARE LAB Specimen Type POC Capillary 01/31/2025 8:49 AM EDT HEALTHCARE LAB Blood Capillary blood specimen / Unknown 01/31/2025 8:47 AM EDT 01/31/2025 8:49 AM EDT us Ceci Mitchell MD LAB POINT OF CARE TE ST DOCKED DEVICE UNSOLICITED RESULTS Final Result [facility] [address] [place] [address] documented in this encounter Visit Diagnoses Diagnosis [...] Starting on Hermelinda 01/31/25 at 1102, Until Heremlinda 01/31/25 at 1539, Routine, Recovery (Phase I [...] as of this encounter Care Teams Rn Relief Charge Relationship Specialty Start Date End Date Vignesh Pickens MD [address] [place] [address] PCP - General 12/31/24 Cayla Erazo APRN, FREDERICK [id number] [place] [address] Nurse Practitioner Urology 12/20/24 documented as of this encounter
--- OUTSIDE RECORDS SUMMARY | 2025-01-31 08:55 | XMS_ITS | Encounter Summary ---
Author Organization Healthcare Address [address] [place] [address] Care Team Providers Care Radiologic Technician Name Role Phone Cayla Erazo APRN, DNP Unavailable [phone] Vignesh Pickens MD Primary Care Provider [phone] Reason for Visit * Auth/Cert (Routine) Specialty Diagnoses / Procedures Referred By Contelvie t Referred To Contact Diagnoses Gross hematuria Gross hematuria Procedures SC CYSTO/URETERO/PYELOSC,BX &/OR FULG LESN URETEROSCOPY, WITH BIOPSY POSSIBLE STENT PLACEMENTS Ceci Mitchell MD [address] [address] Phone: tel: fax: [facility] [address] [place] [address] Phone: tel: Referral ID Status Reason Start Date Expiration Date Visits Re quested Visits Authorized [id number] 1 1 Encounter Details Date Type Department Care Team (Late st Contact Info) Description 01/31/2025 8:55 AM EDT - 01/31/2025 10:10 AM EDT Surgery [facility] [address] [place] [address] Ceci Mitchell MD [address] [address] URETEROSCOPY,CYSTOSCOP Y, RETROGRADE PYELOGRAM, BILATERAL STENT PLACEMENT [90818 (CPT )] Surgery Details Date/Time Status Location OR Service Patient Class Case Class Case Type Trauma Case? 01/31/2025 8:55 AM Posted [facility] E-Electiv e Panel 1 [...] any time in the past 12 m [facility], were you homeless or living [...] drink first t rodríguez in the morning (EYE-ELECTRICAL ESTIMATOR) to steady your nerves or to get [...] [facility] Urology Department Clinic at [facility] [address], [address] Floor, Wing [address], [address] [place] [address] Clinic After Hours [facility] Medical Office Building Urology Clinic [address] [place] [address] Clinic After Hours documented in this encounter [...] POSTOPERATIVE DIAGNOSIS: Same SURGEON: Ceci Mitchell MD MEDIA MANAGER SURGEON(S): Gerry Cullen DO, Doug Lundy MD [...] the start of the case. A 19 Puerto Rican rigid cystoscope was introduced into the patient's [...] of the renal pelvis. We advanced a Basco catheter over our sensor wire and performed [...] leave stents bilaterally with strings. Used 7 Puerto Rican by 24 cm double-J stents on strings. These were placed without difficulty and intraoperative fluoroscopy was used to confirm appropriate positioning with the proximal curls in the renal pelvises bilaterally in the distal curls in the bladder. An 18 Puerto Rican García catheter was placed at the conclusion [...] Cullen DO PGY-3, Department of Urology Pager: [phone] Cosigned by Ceci Mitchell MD at 01/31/2025 [...] Touchworks KIDNEY SURGERY N/A Kidney Surgery from [facility] KNEE SURGERY N/A Knee Surgery from [facility] MASTECTOMY N/A Breast Surgery Mastectomy from [facility] SHOULDER SURGERY Right Shoulder Surgery Right from [facility] [3] No medications prior to admission. [4] Allergies Allergen Reactions Sulfa Drugs Anaphylaxis Ultram [Tramadol] Swelling lips swell Hydrocodone Unknown - Patient states they do not know rxn details [facility] is unaware of what reaction. Pedi-Pre Tape [place] [Wound Dressing Adhesive] Rash Wellbutrin [Bupropion] Rash [...] Office Visit [facility] [address], [address] [place] [address] Doug Chapman MD [address] [place] [address] 03/27/2025 10:30 AM EDT Appointment [facility] Ultrasound [address]nd [place] [address] 03/27/2025 11:50 AM EDT Clinical Support Medical Office Building Lab [address] [place] [address] 03/27/2025 1:00 PM EDT Office Visit Medical Office Building Urology [address] [facility], [address] [place] [address] Cayla Erazo, PRODUCT DEVELOPMENT ENGINEER, DNP [address] [place] [address] 05/16/2025 8:00 AM EDT Office Visit [facility] [place] [address] [facility], [address] [place] [address] Karly Gracia MD [address] [place] [address] 06/07/2025 1:00 PM EDT Office Visit [facility] [address] [place] [address] Tom Iraheta MD [address] [place] [address] documented as of this encounter [...] Routine 01/31/2025 10:22 AM EDT Gross hematuria SC CYSTO/URETERO/PYELOS C,BX &/OR FULG LESN 01/31/2025 9:32 [...] Comment 01/31/2025 11:41 AM EDT [facility] Circuit Breaker Mechanic ID Abbey Medina 01/31/2025 11:41 AM EDT [facility] Device ID [id number] 01/31/2025 11:41 AM EDT [facility] Specimen Type POC Capillary 01/31/2025 11:41 AM EDT [facility] Blood Capillary blood specimen / Unknown 01/31/2025 11:39 AM EDT 01/31/2025 11:41 AM EDT Ceci Mitchell MD LAB POINT OF CARE TE ST DOCKED DEVICE UNSOLICITED RESULTS Final Result [facility] [address] [place] [address] * [place] Less than 1 Hour Intraoperative (01/31/2025 11:14 AM EDT) Narrative IMAGING - 01/31/2025 11:15 AM EDT Images were obtained for surgical purposes. See Ceci Mitchell's surgical note in the patient's chart for the findings. us Ceci Mitchell MD IMG FLUOROSCOPY PROCEDURES F inal Result Performing Organization Address City/[facility] Co de Phone Number IMAGING * (ABNORMAL) Fungal Culture, Routine (01/31/2025 10:23 AM EDT) Culture Confluent Growth Maira glabrata(A) 02/08/2025 11:50 AM EDT [facility] Urine Urinary bladder structure / Unknown 01/31/2025 10:23 AM EDT 01/31/2025 11:38 AM EDT Comment:Pre-op diagnosis: Gross hematuria us Ceci Mitchell MD LAB MICROBIOLOGY - GENERAL O RDERABLES Final Result Performing Organization Address [facility] de Phone Number [facility] [address] [place] [address] * Urine Culture (01/31/2025 10:22 AM EDT) Culture No growth at day 1 02/01/2025 8:02 AM EDT [facility] Urine Urinary bladder structure / Unknown 01/31/2025 10:22 AM EDT 01/31/2025 11:38 AM EDT Comment:Pre-op diagnosis: Gross hematuria us Ceci Mitchell MD LAB MICROBIOLOGY - GENERAL O RDERABLES Final Result Performing Organization Address [facility] Co [place] Phone Number [facility] [address] [place] [address] * (ABNORMAL) POCT glucose meter (01/31/2025 8:47 AM EDT) POCT Glucose 135(H) 74 - 99 mg/dL 01/31/2025 8:49 AM EDT [facility] Comment:Accuracy of a glucos e result [...] Comment 01/31/2025 8:49 AM EDT HEALTHCARE [facility] Circuit Breaker Mechanic ID Khai Jamison 02/01/20 8:49 AM EDT [facility]ALTH[facility]ARE LAB Device ID [id number] 01/31/2025 8:49 AM EDT [facility] Specimen Type POC Capillary 01/31/2025 8:49 AM EDT [facility] Blood Capillary blood specimen / Unknown 01/31/2025 8:47 AM EDT 01/31/2025 8:49 AM EDT us Ceci Mitchell MD LAB POINT OF CARE TE ST DOCKED DEVICE UNSOLICITED RESULTS Final Result [facility] [address] [place] [address] documented in this encounter Visit Diagnoses Diagnosis [...] documented as of this encounter Care Teams Radiologic Technician Relationship Specialty Start Date End Date Vignesh Pickens MD [address] [place] [address] PCP - General 12/31/24 Cayla Erazo APRN, [place] [address] [facility] [address] [place] [address] Nurse Practitioner Urology 12/20/24 documented as of this encounter
--- OUTSIDE RECORDS SUMMARY | 2025-01-31 09:48 | XMS_ITS | Encounter Summary ---
Author Organization Healthcare Address [address] [place] [address] Care Team Providers Care Sap Portal Consultant Name Role Phone Cayla Erazo APRN, FREDERICK Unavailable [phone] Vignesh Pickens MD Primary Care Provider [phone] Reason for Visit * Auth/Cert (Routine) Specialty Diagnoses / Procedures Referred By Clara stoner Referred To Contact Diagnoses Gross hematuria Gross hematuria Procedures [place] CYSTO/URETERO/PYELOSC,BX &/OR FULG LESN URETEROSCOPY, WITH BIOPSY POSSIBLE STENT PLACEMENTS Ceci Mitchell MD [address] [facility] [address] [place] [address] Phone: tel: fax: [facility] [address] [place] [address] Phone: tel: Referral ID Status Reason Start Date Expiration Date Visits Re quested Visits Authorized [id number] 1 1 Encounter Details Date Type Department Care Team (Late st Contact Info) Description 01/31/2025 9:48 AM EDT Anesthesia Event [facility] [address] [place] [id number] jN Sears MD [address] [place] [address] Anesthesia Record Procedure Summary Procedure [...] Hand; Site Prep: Chlorhexidine ; Local Anesth: [place]; Technique: Anatomical landmarks; Inserted by: james orosco [...] No change to dentition. ; Placed by: HEAD START DIRECTOR; Removal Date: 01/31/25; Removal Time: 1122 01/31/25 [...] the past 12 m [facility], were you homeless or living [...] drink first t rodríguez in the morning ([employer]) to steady your nerves or to get rid of a hangover? 0 08/15/2024 CAGE Questionnaire Score 0 024 Utilities Answer Date Recorded In the past 12 months has e [employer], gas, oil, or water [employer] threatened to shut off services in your [...] and Staff Patient location during procedure: OR HEAD START DIRECTOR: Migue Seay CRNA Performed: HEAD START DIRECTOR Patient Condition Indications for airway management: anesthesia [...] WITH BIOPSY POSSIBLE STENT PLACEMENTS (Bilateral) Location: [address] / [place] Surgeons: Ceci Mitchell MD Department of [...] were no vitals filed for this visit. [place] body weight: 54.7 kg (120 lb 9.5 [...] Abnormal Ventricular Rate 77 Atrial Rate 77 [place] Interval 180 QRSD Interval 124 QT Interval 416 QTC Interval 470 P [place] 23 R [place] 268 T Wave [place] 67 Diagnosis Normal sinus rhythm Diagnosis Right [...] valvular disease. PFTs No results found for: [id number] , [id number] , [id number] , FVCPRED Relevant Problems Cardio (+) Asymptomatic bilateral carotid artery stenosis (+) Atrial premature depolarization (+) CAD (coronary artery disease), [place] coronary artery (+) Deep venous thrombosis of lower extremity (+) Dyspnea, unspecified (+) Essential (primary) hypertension (+) Old myocardial infarction (+) Other specified cardiac arrhythmias (+) PVD (peripheral vascular disease) ([facility]) (+) Peripheral vascular disease, unspecified ([facility]) (+) Unspecified right bundle-branch block (+) Venous embolism Endo (+) Controlled diabetes mellitus type II without complication (+) Nontoxic single thyroid nodule (+) Type 2 diabetes mellitus with diabetic chronic kidney disease ([facility]) (+) Type 2 diabetes mellitus without complication GI (+) Fecal impaction ([facility]) (+) GERD without esophagitis (+) Morbid (severe) obesity due to excess calories ([facility]) /Renal (+) Acute kidney injury superimposed on CKD ([facility]) (+) Calculus of kidney (+) Chronic kidney disease, stage 3a ([facility]) (+) Cyst of kidney, acquired (+) Hydronephrosis with renal and ureteral calculous obstruction (+) Hypertensive chronic kidney disease with stage 1 through stage 4 chronic kidney disease, or unspecified chronic kidney disease (+) Hypertensive heart and chronic kidney disease with heart failure and stage 1 through stage 4 chronic kidney disease, or unspecified chronic kidney disease ([facility]) (+) Kidney infection (+) Pyelonephritis (+) Recurrent UTI (+) Stage 3 chronic kidney disease ([facility]) (+) Tubulo-interstitial nephritis, not specified as acute or chronic (+) Type 2 diabetes mellitus with diabetic chronic kidney disease ([facility]) (+) Unspecified hydronephrosis Neuro/Psych (+) Headache, unspecified (+) Hx of AKA (above knee amputation), left ([facility]) (+) Stroke ([facility]) Pulmonary (+) COPD (chronic obstructive pulmonary disease) ([facility]) (+) Mixed simple and mucopurulent chronic bronchitis ([facility]) Other (+) Arthritis Anesthesia Evaluation Clinical information reviewed: NPO Status Physical Exam Airway Mallampati: III Mouth opening: normal TM distance: <3 FB Neck ROM: full Cardiovascular Rhythm: regular Rate: normal Dental Pulmonary Comments: Symmetric chest rise, moving air bilat, no increased wob Neurological Skin Musculoskeletal Extremities Anesthesia Plan ASA 3 Plan was reviewed with: HEAD START DIRECTOR Anesthesia technique(s) discussed with the patient/family: general [...] Date Anxiety Breast cancer Cerebral infarction, unspecified ([facility]) CVA (cerebral infarction) COPD (chronic obstructive pulmonary disease) ([facility]) Depression Fibromyalgia History of falling History of [...] BREAST SURGERY N/A Breast Surgery Reconstruction from [employer] BREAST SURGERY N/A Breast Surgery from [employer] CHOLECYSTECTOMY N/A Cholecystotomy from [employer] KIDNEY SURGERY N/A Kidney Surgery from [employer] KNEE SURGERY N/A Knee Surgery from [employer] MASTECTOMY N/A Breast Surgery Mastectomy from [employer] SHOULDER SURGERY Right Shoulder Surgery Right from [employer] [3] Allergies Allergen Reactions Sulfa Drugs Anaphylaxis Ultram [Tramadol] Swelling lips swell Hydrocodone Unknown - Patient states they do not know rxn details [facility] is unaware of what reaction. Pedi-Pre Tape [place] [Wound Dressing Adhesive] Rash Wellbutrin [Bupropion] Rash [...] Office Visit [facility] [address] [place] [address] Doug Chapman MD [id number] [place] [address] 03/27/2025 10:30 AM EDT Appointment [facility] Ul[facility]ound [address] [place] [address] 03/27/2025 11:50 AM EDT Clinical Support Medical Office Building Lab [address] [place] [address] 03/27/2025 1:00 PM EDT Office Visit Medical Office Building Urology [address] [facility], [address] [place] [address] Cayla Erazo, MOTORCOACH DRIVER, DNP [id number] [place] [address] 05/16/2025 8:00 AM EDT Office Visit [facility] [place] [facility] [address] [facility], [address] [place] [address] Karly Gracia MD [address] [place] [address] 06/07/2025 1:00 PM EDT Office Visit [place] [id number] [facility] [address] [address] Tom Iraheta MD [address] [place] [address] documented as of this encounter Goals Goal Patient Goal Type Associated Problems Recent Progress Patient-Stated? Author Autogenerat ed Goal Care Plan Autogenerated Problem No Eugenia Hodge documented as of this encounter Procedures Procedure Name Priority Date/Time Associated Diagnosis Comments PB ANESTHESIA PLACEHOLDER Routine 01/31/2025 9:58 AM EDT WY AN ELECTIVE ENDOTRACHEAL AIRWAY Routine 01/31/2025 9:58 AM EDT documented in this encounter Results * WY AN ELECTIVE ENDOTRACHEAL AIRWAY, PB ANESTHESIA PLACEHOLDER (01/31/2025 9:58 AM EDT) Narrative Migue Seay CRNA - 01/31/2025 9:58 AM EDT Migue Seay CRNA 01/31/2025 10:45 AM Airway Date/Time: 01/31/2025 9:58 AM Reason: elective Airway not difficult General Information and Staff Patient location during procedure: OR HEAD START DIRECTOR: Migue Seay CRNA Performed: LORETTA Patient Condition [...] documented as of this encounter Care Teams Sap Portal Consultant Relationship Specialty Start Date End Date Vignesh Pickens MD [address] [facility] [facility] [place] [address] PCP - General 12/31/24 Cayla Erazo, MOTORCOACH DRIVER, DNP [address] [facility] [address] [place] [address] Nurse Practitioner Urology 12/20/24 documented as of this encounter
--- OUTSIDE RECORDS SUMMARY | 2025-02-22 07:05 | XMS_ITS | Encounter Summary ---
Author Organization [facility] Address [address] [place] [address] Care Team Providers Care Molding Cutter Name Role Phone Cayla Erazo APRN, DNP Unavailable [phone] Vignesh Pickens MD Primary Care Provider [phone] Encounter Details Date Type Department Care Team [...] any time in the past 12 m [facility], were you homeless or living in [...] drink first t rodríguez in the morning (EYE-TECHNICAL SOLUTION ARCHITECT) to steady your nerves or to [...] [address] [place] [address] Doug Chapamn MD [address] [facility] [address] [place] [address] 03/27/2025 10:30 AM EDT Appointment [facility] Ultrasound [address] [place] [address] 03/27/2025 11:50 AM EDT Clinical Support Medical Office Building Lab [address] [place] [address] 03/27/2025 1:00 PM EDT Office Visit Medical Office Building Urology [address] [facility], [address] [place] [address] Cayla Erazo, BOX MAKER WOOD, DNP [address] [place] [address] 05/16/2025 8:00 AM EDT Office Visit [facility] [place] [address] [facility], [address] [place] [address] Karly Gracia MD [address] [place] [address] 06/07/2025 1:00 PM EDT Office Visit [facility] [address] [place] [address] Tom Iraheta MD [address] [place] [address] documented as of this encounter [...] documented as of this encounter Care Teams Molding Cutter Relationship Specialty Start Date End Date Vignesh Pickens MD [address] [place] [address] PCP - General 12/31/24 Cayla Erazo APRN, DNP [address] [place] [address] Nurse Practitioner Urology 12/20/24 documented as of this encounter
--- OUTSIDE RECORDS SUMMARY | 2025-02-22 07:05 | XMS_ITS | Encounter Summary ---
Author Organization [facility] Address [address] [place] [address] Care Team Providers Care Lye Machine Operator Name Role Phone Cayla Erazo APRN, DNP Unavailable [phone] Vignesh Pickens MD Primary Care Provider [phone] Encounter Details Date Type Department Care Team (Late st Contact Info) Description 01/17/2025 Telephone [facility] [address], [address] [place] [address] Ceci Mitchell MD [address] [place] [address] Social History Tobacco Use Types [...] time in the past 12 m [facility], were you homeless or living [...] drink first t rodríguez in the morning (EYE-DRY HOUSE OPERATOR) to steady your nerves or to [...] Description 03/07/2025 10:00 AM EDT Office Visit [facility] [address], [address] [place] [address] Doug Chapman MD [id number] [place] [address] 03/27/2025 10:30 AM EDT Appointment [facility] Ultrasound [address] [place] [address] 03/27/2025 11:50 AM EDT Clinical Support Medical Office Building Lab [address] [place] [address] 03/27/2025 1:00 PM EDT Office Visit Medical Office Building Urology [address], [address] [place] [address] Cayla Erazo, CROWD CONTROLLER, DNP [id number] [place] [address] 05/16/2025 8:00 AM EDT Office Visit [facility] [address], [address] [place] [address] Karly Gracia MD [address] [place] [address] 06/07/2025 1:00 PM EDT Office Visit [facility] [address] [place] [address] Tom Iraheta MD [address] [place] [address] Scheduled Orders Name Type Priority Associated Diagnoses [...] documented as of this encounter Care Teams Lye Machine Operator Relationship Specialty Start Date End Date Vignesh Pickens MD [address] [place] [address] PCP - General 12/31/24 Cayla Erazo APRN, FREDERICK [address] [place] [address] Nurse Practitioner Urology 12/20/24 documented as of this encounter
--- OUTSIDE RECORDS SUMMARY | 2025-02-22 07:05 | XMS_ITS | Clinical Summary ---
Author Organization [employer] ([place], [place], [place], [place]) Address [address] [place] [address] Care Team Providers Care Building Pressure Washer Name Role Phone [facility], Provider Not In The System MD Primary [...] Do you speak a language other than Slovak at ho me? No 12/09/2023 Do you [...] and Screening (12+) 12/08/2024 12/09/2023 Influenza Vaccine (#1) 2025 Lipid Panel 11/06/2027 11/05/2024 Procedures Procedure [...] [facility] ([place] [place]) LABORATORY [address] [phone] from Last 3 Months or Most Recently Relevant to Health Maintenance Insurance Critical access hospital [place] [address] MEDICARE PART A B [place] Advance Directives For more information, please contact: [phone] * Full Code (Latest Code Status on [...] Name Relationship Healthcare Agent Relationshi p Communication Bronaugh Dante Sister First Alternate Healthcare Decision-Maker Care Teams Building Pressure Washer Relationship Specialty Start Date End Date [facility], Provider Not In The System, [place] [address] PCP - General 10/05/23
--- OUTSIDE RECORDS SUMMARY | 2025-02-22 07:05 | XMS_ITS | Clinical Summary ---
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 (current) use of antibiotics Benign Essential Hypertension 23759659 (SNOMED CT) 01/14 Resolved 01/14 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 Benign hypertension 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) 85563325 (SNOMED CT) 10/25 Active 10/25 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 Benign hypertension Presence of left artificial knee joint Z96.652 (ICD-10-CM ) 10/25 Active 10/25 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 Presence of left artificial knee joint Hx of MRSA infection 468364413 (SNOMED CT) 10/25 Active 10/25 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 H/O: infectious disease Hx of malignant neoplasm of breast 895468930 (SNOMED CT) 03/02 Resolved 03/02 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 History of malignant neoplasm of breast Cellulitis of left leg 422694556 (SNOMED CT) 03/02 Resolved 03/02 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 Cellulitis of lower limb 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 (current) use of suppressive antibiotics Z79.2 (ICD-10-CM ) 01/14 Inactive 01/14 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 assisted (current) use of antibiotics Anemia in chronic diseases(docu ment disease) D63.8 (ICD-10-CM ) 01/14 Active 01/14 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 Anemia in other chronic diseases classified elsewhere Chronic respiratory failure with hypoxia 70619725 (SNOMED CT) 01/14 Active 01/14 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 Acute respiratory failure COPD 06906220 (SNOMED CT) 01/14 Active 01/14 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 Chronic obstructive pulmonary disease DM Type II E11.9 (ICD-10-CM ) 01/14 Inactive 01/14 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 Type 2 diabetes mellitus without complications Benign Essential Hypertension 14517156 (SNOMED CT) 01/14 Removed 01/14 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 Benign hypertension Acquired absence of left knee joint 626815220 (SNOMED CT) 03/02 Resolved 03/02 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 History of operative procedure on knee Obesity due to excess calories E66.09 (ICD-10-CM ) 03/02 Resolved 03/02 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 Other obesity due to excess calories 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 (current) use of anticoagulant s Z79.01 (ICD-10-CM ) 03/02 Resolved 03/02 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 (current) use of anticoagulants Staph epi infection B95.7 (ICD-10-CM ) 03/02 Resolved 03/02 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 Other staphylococcus as the cause of diseases classified elsewhere Diarrhea 73595977 (SNOMED CT) 09/28 Resolved 09/28 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 Diarrhea Staph hominis infection B95.7 (ICD-10-CM ) 09/28 Resolved 09/28 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 Other staphylococcus as the cause of diseases classified elsewhere Staph hominis infection B95.7 (ICD-10-CM ) 09/28 Removed 09/28 Arie Dougherty MD Other staphylococcus as the cause of diseases classified elsewhere Diarrhea 30962289 (SNOMED CT) 09/28 Removed 09/28 Arie Dougherty MD Diarrhea Acquired absence of left knee joint 964380332 (SNOMED CT) 03/02 Removed 03/02 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 History of operative procedure on knee Cellulitis of left leg 892380344 (SNOMED CT) 03/02 Removed 03/02 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 Cellulitis of lower limb Knee, left, subsequent encounter, infection/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 T84.54xD (ICD-10-CM ) 03/02 Active 03/02 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 Infection and inflammatory reaction due to internal left knee prosthesis, subsequent encounter Staph epi infection B95.7 (ICD-10-CM ) 03/02 Removed 03/02 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 Other staphylococcus as the cause of diseases classified elsewhere 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 (current) use of anticoagulant s Z79.01 (ICD-10-CM ) 03/02 Removed 03/02 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 assisted (current) use of anticoagulants Obesity due to excess calories E66.09 (ICD-10-CM ) 03/02 Removed 03/02 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 Other obesity due to excess calories Hx of malignant neoplasm of breast 218019553 (SNOMED CT) 03/02 Removed 03/02 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 History of malignant neoplasm of breast Medications Medication Instructions Start Date Stop Date Generic Name NDC Provider DOXYCYCLINE MONOHYDRATE 100 MG CAPS Take 1 capsule by mouth twice a day 10/25 doxycycline monohydrate 12350707848 Arie Dougherty MD ceftriaxone recon soln 2GM IV Q24hrs [facility] 02/18 ceftriaxone recon soln Temi Norris Cubicin RF 800mg IV Q48hrs [facility] 02/18 daptomycin Temi Norris DOXYCYCLINE MONOHYDRATE 100 MG CAPS Take 1 capsule by mouth twice a day 02/03 doxycycline monohydrate 76687479845 Arie Dominguez RF 800mg IV Q48hrs [facility] 02/18 daptomycin Nubia Ervin ceftriaxone recon soln 2GM IV Q24hrs [facility] 02/18 ceftriaxone recon soln Nubiadeidre Ervin IPRATROPIUM-ALBUT MIKE 0.5-2.5 (3) MG/3ML SOLN 3 ml by mouth PRN 01/27 ipratropium-albut mike 28845760419 Nubia Minor Gaviscon 95-358 mg/15 mL suspension by mouth four times a day 30 mL aluminum hydrox-magnesium carb 16427244509 Nubia Minor IPRATROPIUM-ALBUT MIKE 0.5-2.5 (3) MG/3ML SOLN using nebulizer every six hours PRN ipratropium-albut mike 24206467616 Nubia Minor BASAGLAR KWIKPEN 100 UNIT/ML SOPN subcutaneously once a day insulin glargine 26338529750 Nubia Minor MUCUS RELIEF D 60-600 MG [id number] by mouth twice a day pseudoephedrine-g uaifenesin 35951844781 Nubia Minor VITAMIN B-12 100 MCG TABS by mouth once a day cyanocobalamin (vitamin b-12) 30377878264 Nubia Minor PERCOCET 5-325 MG TABS 1-2 tablet every four to six hours oxycodone-acetami nophen 15345369385 Nubia Minor BIOTIN 1000 MCG TABS by mouth once a day biotin 52056369978 Nubia Minor GABAPENTIN 800 MG TABS by mouth four times a day as needed gabapentin 65563291629 Nubia Minor ATORVASTATIN CALCIUM 40 MG TABS by mouth every morning Hold while on daptomycin atorvastatin 80190434102 Nubia Minor FERROUS SULFATE 325 (65 Fe) MG TABS by mouth once a day ferrous sulfate 19248981756 Nubia Minor VENLAFAXINE HCL 75 MG TABS by mouth twice a day venlafaxine 03295527018 Nubia Minor CITRACAL MAXIMUM 315-6.25 MG-MCG TABS by mouth twice a day calcium citrate-vitamin d3 41556548448 Nubia Poncho JANUMET XR 50-1000 MG [id number] by mouth twice a day sitagliptin phos-metformin 38186886912 Nubia Minor GNP HYDROCORTISONE/AL OE 1 % CREA Apply to skin twice a day as needed hydrocortisone acetate 20193658168 Nubia Minor MS CONTIN 15 MG CR-TABS by mouth twice a day morphine 41306259921 Nubia Minor OMEPRAZOLE 20 MG TBEC 2 tablet by mouth once a day omeprazole 76080388735 Nubia Minor DOXYCYCLINE HYCLATE 100 MG TABS Take 1 tablet by mouth twice a day 01/11 doxycycline hyclate 46665439021 Nubia Minor CARVEDILOL 12.5 MG TABS by mouth twice a day carvedilol 83749342580 Nubia Minor PROMETHAZINE HCL 25 MG TABS by mouth three times a day as needed promethazine 33673055519 Nubia Minor TIZANIDINE HCL 4 MG TABS by mouth three times a day as needed tizanidine 22491196087 Nubia Minor LACTULOSE 10 GM/15ML SOLN 30 ml by mouth as needed lactulose 47233958518 Nubia Minor COLACE 100 MG CAPS by mouth twice a day as needed docusate sodium 92382935853 Nubia Minor XARELTO TABLET 15 mg 15 mg Take 1 by mouth once a day XARELTO TABLET 15 mg 15 mg Nubia Minor ANASTROZOLE 1 MG TABS by mouth once a day anastrozole 16182199705 Nubia Minor ACETAMINOPHEN 500 MG TABS by mouth every six hours PRN acetaminophen 79313110220 Nubia Minor LOPERAMIDE HCL 2 MG CAPS by mouth once a day PRN loperamide 62018289529 Nubia Minor ASCORBIC ACID 500 MG TABS by mouth 0.5 tab am and 0.5 tab pm ascorbic acid (vitamin c) 99793960050 Nubia Minor BACLOFEN 10 MG TABS by mouth three times a day baclofen 43554669714 Nubia Minor BREO ELLIPTA 100-25 MCG/ACT AEPB every morning fluticasone furoate-vilantero l 67329797747 Nubia Minor BUMETANIDE 2 MG TABS by mouth twice a day bumetanide 85163755571 Nubia Minor CALCIUM 600 1500 (600 Ca) MG TABS by mouth twice a day calcium carbonate 40946982147 Nubia Minor D3 HIGH POTENCY 10 MCG (400 UNIT) TABS by mouth 2.5 units am and 2.5 units pm cholecalciferol (vitamin d3) 56200683083 Nubia Minor PLAVIX 75 MG TABS by mouth every morning clopidogrel 89316085039 Nubia Minor VITAMIN B-12 1000 MCG TABS by mouth every morning cyanocobalamin (vitamin b-12) 74711501150 Nubia Minor FLONASE ALLERGY RELIEF 50 MCG/ACT SUSP intranasally every morning fluticasone propionate 49816707584 Nubia Minor FOSAMAX 70 MG TABS by mouth once a week alendronate 50774660690 Nubia Minor GLIPIZIDE ER 2.5 MG [id number] by mouth every morning 0.5 tab glipizide 33549960833 Nubia Minor LANTUS SOLOSTAR 100 UNIT/ML SOPN 8 unit subcutaneously every night insulin glargine 04552865450 Nubia Minor IPRATROPIUM-ALBUT MIKE 0.5-2.5 (3) MG/3ML SOLN 3 ml by mouth PRN 01/27 ipratropium-albut miek 63177163776 Nubia Minor JARDIANCE 10 MG TABS by mouth every morning empagliflozin 96878102322 Nubia Minor MAGNESIUM OXIDE 400 MG TABS by mouth twice a day magnesium oxide 71234498412 Nubia Minor METFORMIN HCL 1000 MG TABS by mouth twice a day metformin 43751809409 Nubia Minor MULTI-VITAMIN HP/MINERALS CAPS by mouth once a day multivitamin,tx-m inerals 18325147419 Nubia Minor ONDANSETRON HCL 4 MG TABS by mouth twice a day PRN ondansetron hcl 78951101970 Nubia Minor PANTOPRAZOLE SODIUM 20 MG TBEC by mouth once a day pantoprazole 26444009214 Nubia Minor PREGABALIN 50 MG CAPS by mouth three times a day pregabalin 17529254090 Nubia Isaac SENNA 8.6 MG TABS by mouth 2 tabs PRN sennosides 39230069357 Nubia Isaac SPIRONOLACTONE 50 MG TABS by mouth once a day spironolactone 95442067139 Nubia Isaac TRAZODONE HCL 150 MG TABS by mouth once a day 2 tabs trazodone 48350106813 Nubia Isaac VALSARTAN 80 MG TABS by mouth twice a day valsartan 01170505327 Nubia Isaac VENLAFAXINE HCL ER 150 MG [id number] by mouth every morning venlafaxine 21416275509 Nubia Isaac VANCOMYCIN HCL SOLR 1gm IV q 12 x 6wks [facility] [phone] 10/05 VANCOMYCIN HCL SOLR 11910758821 Libby Cabello JIMI MS CONTIN 15 MG CR-TABS by mouth twice daily 01/11 MORPHINE SULFATE 41742677856 Arie Dougherty MD PERCOCET 5-325 MG TABS 1-2 tabs, every four to six hours, do not exceed 4000mg of acetaminophen per day 01/11 OXYCODONE-ACETAMI NOPHEN 51756179107 Arie Dougherty MD [facility] IRON 325 (65 Fe) MG TABS by mouth daily 01/11 FERROUS SULFATE 05126760637 Arie Dougherty MD COLACE 100 MG CAPS by mouth twice daily as needed 02/19 DOCUSATE SODIUM 28007173970 Arie Dougherty MD DOXYCYCLINE HYCLATE 100 MG TABS take 1 tab po BID 02/19 DOXYCYCLINE HYCLATE 20884096711 Arie Dougherty MD XARELTO TABLET Take one by mouth once daily. 01/11 RIVAROXABAN TABS 95599739311 Arie Dougherty MD COUMADIN 5 MG ORAL TABLET by mouth, AC dinner 10/17 WARFARIN SODIUM 63462211505 Arie Dougherty MD VANCOMYCIN HCL SOLR 1gm IV q 12 x 6wks [facility] [phone] 08/22 VANCOMYCIN HCL SOLR 39602978564 [facility] VANCOMYCIN HCL SOLR 750 mg IV q 12 x 6wks [facility] [phone] 03/31 VANCOMYCIN HCL SOLR 22532641420 [facility] VANCOMYCIN HCL SOLR 750 mg IV q 12 x 6wks [facility] [phone] 08/22 VANCOMYCIN HCL SOLR 13446429431 Daily Lewis RN VENLAFAXINE HCL 75 MG TABS by mouth twice daily 01/11 VENLAFAXINE HCL 46602113987 Kulwant P PROMETHAZINE HCL 25 MG TABS by mouth three times a day as needed 01/11 PROMETHAZINE HCL 59225564157 Kulwant P B-12 100 MCG TABS by mouth daily 09/29 CYANOCOBALAMIN 18851406144 Kulwant P JANUMET XR 50-1000 MG [id number] by mouth twice daily 01/11 SITAGLIPTIN-METFO RMIN HCL 02267227987 Kulwant P TIZANIDINE HCL 4 MG TABS by mouth three times a day as needed 01/11 TIZANIDINE HCL 46165813538 Kulwant P GABAPENTIN 800 MG TABS by mouth four times a day as needed 01/11 GABAPENTIN 96189345693 Kulwant P CARVEDILOL 12.5 MG TABS by mouth twice daily 01/11 CARVEDILOL 17110693881 Kulwant P ANASTROZOLE 1 MG TABS by mouth daily 01/11 ANASTROZOLE 41433926100 Kulwant P CITRACAL MAXIMUM 315-6.25 MG-MCG TABS by mouth twice daily 01/11 CALCIUM CITRATE-VITAMIN D 68884675051 Kulwant P [facility] OMEPRAZOLE 20 MG TBEC 2 tabs by mouth once daily 01/11 OMEPRAZOLE 02311371203 Kulwant P BIOTIN 1000 MCG TABS by mouth daily 01/11 BIOTIN 34650102756 Kulwant P ATORVASTATIN CALCIUM 40 MG TABS by mouth at bedtime 01/11 ATORVASTATIN CALCIUM 97253916547 Kulwant P COUMADIN 5 MG ORAL TABLET by mouth, AC dinner 05/19 WARFARIN SODIUM 06335420863 Kulwant P LACTULOSE SOLN 30mL by mouth as needed 02/19 LACTULOSE SOLN 22518371293 Kulwant P HYDROCORTISONE ACETATE 1 % CREA apply topically twice a day as needed 10/25 HYDROCORTISONE ACETATE 13892920196 Kulwant P MS CONTIN 15 MG CR-TABS by mouth twice daily 11/20 MORPHINE SULFATE 77481767897 Kulwant P [facility] IRON 325 (65 Fe) MG TABS by mouth daily 11/20 FERROUS SULFATE 73858101290 Kulwant P COLACE 100 MG CAPS by mouth twice daily as needed 02/19 DOCUSATE SODIUM 01666343361 Kulwant P PERCOCET 5-325 MG TABS 1-2 tabs, every four to six hours, do not exceed 4000mg of acetaminophen per day 11/20 OXYCODONE-ACETAMI NOPHEN 40702911635 Kulwant P VANCOMYCIN HCL SOLR 1gm IV q 12 x 6wks [facility] [phone] 08/22 VANCOMYCIN HCL SOLR 98303755991 [facility] Medications Administered No information available. Allergies, Adverse [...] or Plasma Office Visit: rm #8 DIET CASH MANAGEMENT COORDINATOR yes Dietary management education, guidance, and counseling [...] Oral Antibiotic CPT-ca Continue IV antibiotics 2022 CPT-45090 CMP [id number] CBC with Differential 2022 CPT-99978 C- reactive protein [id number], [id number] CPK CPT-J7030 IV Fluids CPT-sl STAT Labs CPT-sl STAT Labs CPT-sl STAT Labs CPT-56611 C- reactive protein CPT-45132 Sedimentation Rate (ESR) 201 02/20/04 CPT-99216 Vancomycin Trough CPT-63565 CMP [id number] CBC with Differential 2015 CPT-96254 C- reactive protein CPT-55973 Sedimentation Rate (ESR) 201 01/31/26 CPT-ca Continue IV antibiotics 2015 CPT-wpc Weekly PICC Line Care 09/28 CPT-24324 CMP [id number] CBC with Differential 2015 CPT-30443 Vancomycin Trough CPT-41874 C- reactive protein CPT-82173 Sedimentation Rate (ESR) 201 01/31/07 CPT-cdpcr C-Diff PCR CPT-isi New IV antibiotic CPT-13940 PICC Line Insertion CPT-39626 [facility] [id number] CBC with Differential 2015 CPT-78467 C- reactive protein CPT-47778 Sedimentation Rate (ESR) 201 01/30/30 CPT-DC Discontinue IV antibiotics 2 CPT-PICREM PICC Removal CPT-ca Continue IV antibiotics 2015 CPT-86236 CMP [id number] CBC with Differential 2015 CPT-31181 C- reactive protein CPT-07424 Sedimentation Rate (ESR) 201 01/27/01 CPT-87779 Vancomycin Trough CPT-ca Continue IV antibiotics 2015 CPT-38935 CMP [id number] CBC with Differential 2015 CPT-05161 C- reactive protein CPT-33335 Sedimentation Rate (ESR) 201 01/27/20 CPT-61518 Vancomycin Trough CPT-ca Continue IV antibiotics 2015 [...]
--- OUTSIDE RECORDS SUMMARY | 2025-02-22 07:05 | XMS_ITS | Encounter Summary ---
Author Organization [facility] Address [address] 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 Urine culture orderto faxed to facility to be completed divya documented in this encounter Plan of Treatment Upcoming Encounters Date Type Department Care Team (Late st Contact Info) Description 03/07/2025 10:00 AM EDT Office Visit [facility] Urology [address] [place] [address] Doug Chapman MD [address] [facility] [place] [address] 03/27/2025 10:30 AM EDT Appointment [facility] Ultrasound [address] [place] [address] 03/27/2025 11:50 AM EDT Clinical Support Medical Office Building Lab [address] [place] [address] 03/27/2025 1:00 PM EDT Office Visit Medical Office Building Urology [address] [place] [address] Cayla Erazo APRN, FREDERICK [address] [facility] [address] [place] [address] 05/16/2025 8:00 AM EDT Office Visit [facility] [place] [facility] [address] [facility] [address], [address] [place] [address] Karly Gracia MD [address] [place] [address] 06/07/2025 1:00 PM EDT Office Visit [facility] [address] [place] [address] Tom Iraheta MD [address] [place] [address] documented as of this encounter [...] as of this encounter Care Teams Customer Experience Leader Relationship Specialty Start Date End Date Vignesh Pickens MD [address] [place] [address] PCP - General 12/31/24 Cayla Erazo APRN, DNP [address] [place] [address] Nurse Practitioner Urology 12/20/24 documented as of this encounter
--- OUTSIDE RECORDS SUMMARY | 2025-02-22 07:06 | XMS_ITS | Clinical Summary ---
Author Organization [facility] Address [address] [place] [address] Care Team Providers Care Administrative Fellow Name Role Phone Cayla Erazo APRN, DNP Unavailable [phone] Vignesh Pickens MD Primary Care Provider [phone] Allergies Active Allergy Reactions Criticality Noted Date [...] ureteral calculous obstruction 08/17/2024 Kidney infection 08/16/2024 [place] coma scale total sco re 13-15, unspecified [...] without esophagitis 03/28/2017 CAD (coronary artery disease), [place] coronary a rtery 03/28/2017 Controlled diabetes mellitus [...] Anesthesia Event [facility] [address] [place] [address] Nj Sears MD 01/31/2025 8:55 AM EDT - 01/31/2025 10:10 AM EDT Surgery [facility] [address] [place] [address] Ceci [place] MD URETEROSCOPY,CYSTOSCO PY, RETROGRADE PYELOGRAM, BILATERAL STENT PLACEMENT [83988 (CPT )] 01/31/2025 8:03 AM EDT - 01/31/2025 1:39 PM EDT Hospital Encounter [facility] [address] [place] [address] Ceci [place] MD Urinary retention (Primary Dx); Gross hematuria Discharge Disposition: Home or Self Care 01/31/2025 Travel 01/24/2025 2:00 PM EDT Pre-Admission Testing [facility] Pre-op Clinic [address], [address] [place] [address] 01/24/2025 Travel 01/23/2025 Telephone [facility] Urology [address], [address] [place] [address] Ceci [place] MD 01/17/2025 Telephone [facility] Urology [address], [address] [place] [address] Ceci [place] MD 01/16/2025 Telephone [facility] Urology [address], [address] [place] [address] Ceci [place] MD 01/03/2025 2:15 PM EDT - 01/03/2025 11:59 PM EDT Hospital Encounter [facility] [address]nd [place] [address] Gross hematuria Discharge Disposition: Home or Self Care 01/03/2025 Travel 12/31/2024 4:00 PM EDT Office Visit [facility] [address] [facility] 5th Floor [address] [place] [address] Bert Canela MD Asymptomatic bilateral carotid artery stenosis (Primary Dx); PVD (peripheral vascular disease) ([facility]); Hx of AKA (above knee amputation), left ([facility]); History of stroke; Type 2 diabetes mellitus without complication, unspecified whether metal roofer insulin use 12/31/2024 2:01 PM EDT - 12/31/2024 11:59 PM EDT Hospital Encounter [facility] Vascular Lab [address] [facility] [facility] 5[address] [place] [address] Coronary artery disease involving [place] heart without angina pectoris, unspecified vessel or lesion type; S/P AKA (above knee amputation) bilateral ([facility]); Acute left arterial ischemic stroke, ICA (internal carotid artery) ([facility]) Discharge Disposition: Home or Self Care 12/31/2024 2:01 PM EDT - 12/31/2024 11:59 PM EDT Hospital Encounter [facility] Vascular Lab [address] [facility] [facility] 5[address] [place] [address] S/P AKA (above knee amputation) bilateral ([facility]); Encounter for surgical aftercare following surgery on the circulatory system Discharge Disposition: Home or Self Care 12/31/2024 Travel 12/20/2024 9:20 AM EDT Office Visit [facility] Urology [address], [address] [place] [address] Cayla Erazo, ASTROCHEMIST, DNP Recurrent UTI (Primary Dx); Hydronephrosis, unspecified hydronephrosis type; Urinary retention; Post-menopausal atrophic vaginitis; Gross hematuria 12/20/2024 Orders Only External Location [address] [place] [address] Provider, External 12/20/2024 Travel 12/04/2024 12:05 PM EDT - 12/04/2024 11:59 PM EDT Hospital Encounter Medical Office Building Cardiac Diagnostic Testing Medical Office Building Echo Lab [address] [facility], [address] [place] [address] Coronary artery disease involving [place] heart without angina pectoris, unspecified vessel or lesion type Discharge Disposition: Home or Self Care 12/04/2024 Travel 11/27/2024 2:25 PM EDT - 11/27/2024 11:59 PM EDT Hospital Encounter [facility] [address] [place] [address] Hydronephrosis, unspecified hydronephrosis type; Urinary retention Discharge Disposition: Home or Self Care 11/27/2024 Travel from Last 3 Months Immunizations Immunization Administration Dates Next Due Influenza, injectable, quadrivalent, preservativ e free 05/11/2016 [employer] Therapeutic COVID-19 Vaccine (Purple Cap) 12 + 09/30/2020,09/09/2020 [...] any time in the past 12 m [facility], were you homeless or living in [...] drink first t rodríguez in the morning (EYE-LOGISTICS PLANNING MANAGER) to steady your nerves or to get rid of a hangover? 0 08/15/2024 CAGE Questionnaire Score 0 024 Utilities Answer Date Recorded In the past 12 months has th [employer], gas, oil, or water [employer] threatened to shut off services in your [...] Description 03/07/2025 10:00 AM EDT [facility] [address], [address] [place] [address] Doug [place] MD [address] [place] [address] 03/27/2025 10:30 AM EDT Appointment [facility] Ultrasound [address], [address]nd [place] [address] 03/27/2025 11:50 AM EDT Clinical Support Medical Office Building Lab [address] [place] [address] 03/27/2025 1:00 PM EDT Office Visit Medical Office Building Urology [address] [facility], [address] [place] [address] Cayla Erazo, ASTROCHEMIST, DNP [address] [facility] [address] [place] [address] 05/16/2025 8:00 AM EDT Office Visit [facility] [address] [facility], [address] [place] [address] Karly Gracia MD [address] [place] [address] 06/07/2025 1:00 PM EDT Office Visit [facility] [address] [place] [address] Tom Iraheta MD [address] [place] [address] Health Maintenance Due Date Last [...] - Risk 60-74 years 1-dose series) 2019 [id number] Vaccine (3 - Pfizer risk series) 10/28/2020 [...] [employer] Implanted Type Area Crew Chief Device Identifier Shelf Expiration Date Model / Serial / Lot Stent Ureteral Tria Firm Monofilament 7f/24cm - [id number] Implanted:Qty: 1 on 01/31/2025 by Ceci [place] MD at [facility] Right: Kidney NSS [id number] 06/14/2027 [id number] / / [id number] Stent Ureteral Tria Firm Monofilament 7f/24cm - [id number] Implanted:Qty: 1 on 01/31/2025 by Ceci [place] MD at [facility] Left: Kidney NSS Labs-[id number] 49 07/02/2027 [id number] / / [id number] Procedures Procedure Name Priority Date/Time Associated Diagnosis Comments POCT GLUCOSE METER UNSOLICITED RESULTS Routine 01/31/2025 11:39 AM EDT FL LESS THAN 1 HOUR (NON-REPORTABLE) Routine 01/31/2025 11:14 AM EDT FUNGAL CULTURE, ROUTINE Routine 01/31/2025 10:23 AM EDT Gross hematuria URINE CULTURE Routine 01/31/2025 10:22 AM EDT Gross hematuria PB ANESTHESIA PLACEHOLDER Routine 01/31/2025 9:58 AM EDT VA AN ELECTIVE ENDOTRACHEAL AIRWAY Routine 01/31/2025 9:58 AM EDT VA CYSTO/URETERO/PYELOSC, BX &/OR FULG LESN 01/31/2025 9:32 [...] 2:27 PM EDT Coronary artery disease involving [place] heart without angina pectoris, unspecified vessel or [...] EDT Hydronephrosis, unspecified hydronephrosis type Urinary retention VA COMPLEX CYSTOMETROGRAM W/VOID PRESS&URETHRAL PROFILE Routine 12/20/2024 10:28 AM EDT Hydronephrosis, unspecified hydronephrosis type Urinary retention INJECTION FOR BLADDER XRAY WITHOUT VOIDING Routine 12/20/2024 10:28 AM EDT Hydronephrosis, unspecified hydronephrosis type Urinary retention POC ULTRASOUND 12/20/2024 ECHO, ADULT TRANSTHORACIC COMPLETE Routine 12/04/2024 1:26 PM EDT Coronary artery disease involving [place] heart without angina pectoris, unspecified vessel or [...] 01/31/2025 11:41 AM EDT [facility] Group Director ID Abbey Medina 01/31/2025 11:41 AM EDT HEALTHCARE LAB Device ID [id number] 01/31/2025 11:41 AM EDT HEALTHCARE LAB Specimen Type POC Capillary 01/31/2025 11:41 AM EDT HEALTHCARE LAB Blood Capillary blood specimen / Unknown 01/31/2025 11:39 AM EDT 01/31/2025 11:41 AM EDT Ceci [place] MD LAB POINT OF CARE TE ST DOCKED DEVICE UNSOLICITED RESULTS Final Result Performing Organization Address City/[facility]/ZIP Co de Phone Number [facility] [address] [place], [place] [id number] * FL Less than 1 Hour Intraoperative [...] O RDERABLES Final Result Performing Organization Address [facility] [place] [address] * Urine Culture (01/31/2025 10:22 AM EDT) [...] O RDERABLES Final Result Performing Organization Address [facility] [place] [address] * VA AN ELECTIVE ENDOTRACHEAL AIRWAY, PB ANESTHESIA PLACEHOLDER (01/31/2025 9:58 AM EDT) Narrative Migue Seay CRNA - 01/31/2025 9:58 AM EDT Migue Seay CRNA 01/31/2025 10:45 AM Airway Date/Time: 01/31/2025 9:58 AM Reason: elective Airway not difficult General Information and Staff Patient location during procedure: [facility] [employer] SUPERVISOR: Migue Seay CRNA Performed: [place] Patient Condition [...] following split bolus administration of IV contrast, [id number], 150 mL. Reformatted images in the coronal [...] on 01/03/2025 3:33 PM us Cayla Erazo ASTROCHEMIST, DNP IMG CT PROCEDURES Final Result * [...] are demonstrated at the levels of the BIOLOGICAL LAB TECHNICIAN, DIESEL STATIONARY ENGINEER and DPA. Segmental pressures are within normal limits with a DIESEL STATIONARY ENGINEER JASEN of 0.98 (138 mmHg) and a DPA JASEN of 1.28 (181 mmHg). Digit pressures are 115 mmHg. Left: AKA is noted. Multiphasic waveforms are demonstrated at the level of the BIOLOGICAL LAB TECHNICIAN. 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 COMPARISON: None. FINDINGS: Right: Multiphasic waveforms are demonstrated at the levels of the BIOLOGICAL LAB TECHNICIAN,DIESEL STATIONARY ENGINEER and DPA. Segmental pressures are within normal limits with a DIESEL STATIONARY ENGINEER ABIof 0.98 (138 mmHg) and a DPA JASEN of 1.28 (181 mmHg). Digit pressures tly881 mmHg. Left: AKA is noted. Multiphasic waveforms are demonstrated at the level ofthe BIOLOGICAL LAB TECHNICIAN. IMPRESSION: Right: Normal study; No evidence [...] - 99 mg/dL 12/20/2024 1:19 PM EDT [facility] BUN, Plasma 34(H) 8 - 23 mg/dL 12/20/2024 1:19 PM EDT [facility] Creatinine, Plasma 1.82(H) 0.60 - 1.10 mg/dL 12/20/2024 1:19 PM EDT [facility] BUN/Creatinine Ratio 19 12/20/2024 1:19 PM EDT [facility] Sodium, Plasma 134(L) 136 - 145 mmol/L 12/20/2024 1:19 PM EDT [facility] Potassium, Plasma 4.8 3.6 - 4.9 mmol/L 12/20/2024 1:19 PM EDT [facility] Chloride, Plasma 94(L) 97 - 107 mmol/L 12/20/2024 1:19 PM EDT [facility] CO2, Plasma 28 22 - 29 mmol/L 12/20/2024 1:19 PM EDT [facility] Anion Gap 12 6 - 16 mmol/L 12/20/2024 1:19 PM EDT [facility] Total Calcium, Plasma 10.0 8.9 - 10.2 mg/dL 12/20/2024 1:19 PM EDT [facility] eGFRcr 30.5 mL/min/1.7 3m*2 12/20/2024 1:19 PM EDT [facility] Comment:Reported eGFRcr in m L/min/1.73m2 is based the CKD-EPI 2020 equation that does not use a race coefficient. Blood Venous blood specimen / Unknown Venipuncture / Unknown 12/20/2024 11:54 AM EDT 12/20/2024 11:55 AM EDT us Cayla Erazo APRN, DNP LAB BLOOD ORDERABLES [facility] al Result [facility] [address] [place] [address] * INJECTION FOR BLADDER XRAY WITHOUT VOIDING, VA COMPLEX CYSTOMETROGRAM W/VOID PRESS&URETHRAL PROFILE, UROLOGY UDS WITH BASE PERFORMABLE CHARGES (12/20/2024 10:28 AM EDT) Narrative Cayla Erazo APRN, DNP - 12/20/2024 10:28 AM EDT Cayla Erazo APRN, DNP 01/04/2025 2:40 PM UDS Date/Time: 12/20/2024 10:28 AM Performed by: Cayla Erazo APRN, DNP Authorized by: Cayla Erazo APRN, DNP [place] Protocol: Time out called at: 12/20/2024 10:28 [...] mean PAP 39 mmHg CARLOS ISCV PA VA(ACCEL) 37.4 mmHg CARLOS ISCV PA acc slope 861.8 cm/s2 CAROLS ISCV LAV(MOD-4ch) 31 mL CARLOS ISCV LAV(MOD-bp) [...] is no recent study available for direct [id number] comparison. us Karly Gracia MD CV ECHO [...] on 11/27/2024 3:49 PM us Cayla Erazo ASTROCHEMIST, DNP IMG US PROCEDURES Final Result * Hepatitis C Antibody - ED (08/15/2024 5:35 AM EST) Hepatitis C Antibody Negative Negative 08/15/2024 7:08 AM EST [facility] Blood Venous blood specimen / Unknown Venipuncture / Unknown 08/15/2024 5:35 AM EST 08/15/2024 6:06 AM EST us Marcy Zhong MD LAB BLOOD ORDERABLES Final Resu lt [facility] [address] [place] [address] * (ABNORMAL) Hemoglobin A1c (03/05/2014 7:31 PM [...] Narrative [facility] - 04/10/2013 3:59 PM EDT PSYCHIATRIC MR #: [id number] [facility] [place], [place] [address] 1960 (Age: 52) FW Collect Date: 04/10/2013 00:00 Receipt Date: 04/10/2013 14:23 Page 1 DEPARTMENT OF PATHOLOGY AND LABORATORY MEDICINE CYTOPATHOLOGY REPORT Email: [email or web address] [email or web address] ATTENDING MD/Practitioner: Kimmie Aguilera MD Service: BCC [...] w/ in-situ carcinoma (+) for ER / VA BCC / FNA performed by: Dr. Jonatan [...] RECEPTOR POSITIVE STATUS (ER POSITIVE) F: A; 99650 ASP INTER, [address]5966, 67624 SNOMED CODES: A; [id number] [id number] [id number] [id number] P1149 [id number] A resident has participated in this service. A pathologist has performed and is responsible for the reported pathologic evaluation. 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 Yes Care Teams Administrative Fellow Relationship Specialty Start Date End Date Vignesh Pickens MD [address] [place] [address] PCP - General 12/31/24 Cayla Erazo APRN, DNP [address] [place] [address] Nurse Practitioner Urology 12/20/24
--- OUTSIDE RECORDS SUMMARY | 2025-02-22 07:06 | XMS_ITS | Encounter Summary ---
Author Organization [facility] Address [address] [place] [address] Care Team Providers Care Wastewater Design Engineer Name Role Phone Cayla Erazo APRN, DNP Unavailable Vignesh Pickens MD Primary Care Provider [phone] Encounter Details Date Type Department Care Team [...] time in the past 12 m [facility], were you homeless or [...] drink first t rodríguez in the morning (EYE-INFORMATION DELIVERY ANALYST) to steady your nerves or to [...] Description 03/07/2025 10:00 AM EDT Office Visit [facility] [address] [place] [address] Doug [place] MD [address] [facility] [address] [place] [address] 03/27/2025 10:30 AM EDT Appointment [facility] Ultrasound [address], [address]nd [place] [address] 03/27/2025 11:50 AM EDT Clinical Support Medical Office Building Lab [address] [place] [address] 03/27/2025 1:00 PM EDT Office Visit Medical Office Building Urology [address] [facility], [address] [place] [address] Cayla Erazo, WIDTH STRIPPER, DNP [id number] [place] [address] 05/16/2025 8:00 AM EDT Office Visit [facility] [place] [address] [facility], [address] [place] [address] Karly Gracia MD [address] [place] [address] 06/07/2025 1:00 PM EDT Office Visit [facility] [address] [place] [address] Tom Iraheta MD [address] [place] [address] documented as of this encounter [...] documented as of this encounter Care Teams Wastewater Design Engineer Relationship Specialty Start Date End Date Vignesh Pickens MD [address] [place] [address] PCP - General 12/31/24 Cayla Erazo APRN, DNP [address] [place] [address] Nurse Practitioner Urology 12/20/24 documented as of this encounter
--- OUTSIDE RECORDS SUMMARY | 2025-02-22 07:06 | XMS_ITS | Encounter Summary ---
Author Organization [facility] Address [address] [place] [address] Care Team Providers Care Head Of Acquisitions Name Role Phone Cayla Erazo APRN, DNP Unavailable [phone] Vignesh Pickens MD Primary Care Provider [phone] Encounter Details Date Type Department Care Team [...] any time in the past 12 m [facility], were you homeless or living in a [...] drink first t rodríguez in the morning (EYE-SECTION LABORER) to steady your nerves or to get [...] 10:00 AM EDT Office Visit [facility] Urology [address] [place] [address] Doug [place] MD [id number] [place] [address] 03/27/2025 10:30 AM EDT Appointment [facility] Ultrasound [address]nd [place] [address] 03/27/2025 11:50 AM EDT Clinical Support Medical Office Building Lab [address] [place] [address] 03/27/2025 1:00 PM EDT Office Visit Medical Office Building Urology [address] [facility] [place] [address] Cayla Erazo APRN, DNP [address] [facility] [address] [place] [address] 05/16/2025 8:00 AM EDT Office Visit [facility] [place] [address] [facility], [address] [place] [address] Karly Gracia MD [address] [place] [address] 06/07/2025 1:00 PM EDT Office Visit [facility] [address] [place] [address] Tom Iraheta MD [address] [place] [address] documented as of this encounter [...] documented as of this encounter Care Teams Head Of Acquisitions Relationship Specialty Start Date End Date Vignesh Pickens MD [address] [place] [address] PCP - General 12/31/24 Cayla Erazo APRN, DNP [address] [facility] [address] [place] [address] Nurse Practitioner Urology 12/20/24 documented as of this encounter
--- OUTSIDE RECORDS SUMMARY | 2025-02-22 07:06 | XMS_ITS | Encounter Summary ---
Author Organization [facility] Address [address] [place] [address] Care Team Providers Care Type Proof Reproducer Name Role Phone Cayla Erazo APRN, DNP Unavailable [phone] Vignesh Pickens MD Primary Care Provider [phone] Encounter Details Date Type Department Care Team [...] in the past 12 m [facility], were you homeless or living [...] drink first t rodríguez in the morning (EYE-JACQUARD LOOM FIXER) to steady your nerves or to get [...] Description 03/07/2025 10:00 AM EDT Office Visit [facility] [address] [place] [address] Doug Chapman MD [address] [facility] [address] [place] [address] 03/27/2025 10:30 AM EDT Appointment [facility] Ultrasound [address] [place] [address] 03/27/2025 11:50 AM EDT Clinical Support Medical Office Building Lab [address] [place] [address] 03/27/2025 1:00 PM EDT Office Visit Medical Office Building Urology [address] [facility] [place] [address] Cayla Erazo APRN, FRED[place] [id number] [place] [address] 05/16/2025 8:00 AM EDT Office Visit [facility] [place] [address] [facility] [place] [address] Karly Gracia MD [address] [place] [address] 06/07/2025 1:00 PM EDT Office Visit [facility] [address] [place] [address] Tom Iraheta MD [address] [place] [address] documented as of this encounter [...] documented as of this encounter Care Teams Type Proof Reproducer Relationship Specialty Start Date End Date Vignesh Pickens MD [address] [place] [id number] PCP - General 12/31/24 Cayla Erazo APRN, FREDERICK [address] [place] [address] Nurse Practitioner Urology 12/20/24 documented as of this encounter
--- OUTSIDE RECORDS SUMMARY | 2025-02-22 07:06 | XMS_ITS | Referral Summary ---
Author Organization [employer] ([place], [place], [place], [place]) Address [address] [place] [address] Care Team Providers Care Inseam Trimmer Name Role Phone [facility], Provider Not In The System MD Primary [...] Do you speak a language other than Belgian at ho me? No 12/09/2023 Do you [...] A1C 11.7 % 11/25/2023 5:31 PM EDT [facility] Comment: Hemoglobin A1C levels are related to mean glucose during the preceding 2-3 months. Less than 7% demonstrates glycemic control in diabetic patients. Hemoglobin AlC % Suggested Diagnosis > or = 6.5 Diabetic 5.7 - 6.4 Prediabetic <5.7 Non-diabetic eAVG Glucose 289.09 mg/dL 11/25/2023 5:31 PM EDT [facility] Blood Venipuncture / Unknown 11/25/2023 11:24 AM EDT 11/25/2023 1:46 PM EDT Radha Ram MD LAB BLOOD ORDERABLES Fi nal Result [facility] [address] [place] [address], [facility] [phone] from Last 3 Months or Most Recently Relevant to Health Maintenance Insurance MEDICARE PART A B MEDICAID OF [place] Advance Directives For more information, please contact: [phone] * Full Code (Latest Code Status on [...] Sister First Alternate Healthcare Decision-Maker Care Teams Inseam Trimmer Relationship Specialty Start Date End Date [facility], Provider Not In The System, [place] [address] PCP - General 10/05/23
--- OUTSIDE RECORDS SUMMARY | 2025-02-22 07:06 | XMS_ITS | Encounter Summary ---
Author Organization [facility] Address [address] [place] [address] Care Team Providers Care Tissue Technician Name Role Phone Daniel Barba MD Primary Care Provider [phone] Judy Huff SUPERVISOR CONTACT AND SERVICE CLERKS Unavailable UnavailCayla Carvajal APRN, DNP Unavailable [phone] Vignesh Pickens MD Primary Care Provider + [phone] Encounter Details Date Type Department Care Team (Late Contact Info) Description 08/11/2022 Orders Only External Location [address] [place] [address] Provider, External Social History Tobacco Use Types [...] Description 03/07/2025 10:00 AM EDT Office Visit [facility] [address], [address]nd [place] [address] Doug Chapman MD [address] [place] [address] 03/27/2025 10:30 AM EDT Appointment [facility] Ultrasound [address], 2nd [place] [address] 03/27/2025 11:50 AM EDT Clinical Support Medical Office Building Lab [address] [place] [address] 03/27/2025 1:00 PM EDT Office Visit Medical Office Building Urology [address] [facility], [address] [place] [address] Cayla Erazo, SECURITY DEVELOPER, DNP [address] [place] [address] 05/16/2025 8:00 AM EDT Office Visit [facility] [place] [address] [facility], [address] [place] [address] Karly Gracia MD [address] [place] [address] 06/07/2025 1:00 PM EDT Office Visit [facility] [address] [place] [address] Tom Iraheta MD [address] [place] [address] documented as of this encounter [...] documented as of this encounter Care Teams Tissue Technician Relationship Specialty Start Date End Date Daniel Barba MD [address] [place] [address] PCP - General 01/02/21 12/30/24 Vignesh Pickens MD [address] [place] [address] PCP - General 12/31/24 Judy Huff, SUPERVISOR CONTACT AND SERVICE CLERKS [facility] Nurse 08/24/24 08/24/24 Cayla Erazo APRN, FREDERICK [id number] [place] [address] Nurse Practitioner Urology 12/20/24 documented as of this encounter
--- OUTSIDE RECORDS SUMMARY | 2025-02-22 07:06 | XMS_ITS | Encounter Summary ---
Author Organization [facility] Address [address] [place] [address] Care Team Providers Care Spiral Winding Machine Helper Name Role Phone Daniel Barba MD Primary Care Provider [phone] Judy Huff ASSOCIATE DEAN Unavailable Unavailabl e Cayla Erazo APRN, DNP Unavailable [phone] Vignesh Pickens MD Primary Care Provider + [phone] Encounter Details Date Type Department Care Team (Late st Contact Info) Description 07/28/2022 Orders Only External Location [address] [place] [address] Gregg Morgan MD [address] [place] [address] Social History Tobacco Use Types [...] Office Visit [facility] [address], 2nd [place] [address] Doug Chapman MD [address] [place] [address] 03/27/2025 10:30 AM EDT Appointment [facility] Ultrasound [address], 2nd [place] [address] 03/27/2025 11:50 AM EDT Clinical Support Medical Office Building Lab [address] [place] [address] 03/27/2025 1:00 PM EDT Office Visit Medical Office Building Urology [address] [facility], [address] [place] [address] Cayla Erazo, SIDE LASTER, DNP [address] [place] [address] 05/16/2025 8:00 AM EDT Office Visit [facility] [place] [address] [facility], [address] [place] [address] Karly Gracia MD [address] [place] [address] 06/07/2025 1:00 PM EDT Office Visit [facility] [address] [place] [address] Tom Iraheta MD [address] [place] [address] documented as of this [...] documented as of this encounter Care Teams Spiral Winding Machine Helper Relationship Specialty Start Date End Date Daniel Barba MD [address] [place] [address] PCP - General 01/02/21 12/30/24 Vignesh Pickens MD [address] [place] [address] PCP - General 12/31/24 Judy Huff, ASSOCIATE DEAN [facility] T[facility] Nurse 08/24/24 08/24/24 Cayla Erazo APRN, FREDERICK [address] [facility] [address] [place] [address] Nurse Practitioner Urology 12/20/24 documented as of this encounter
--- OUTSIDE RECORDS SUMMARY | 2025-02-22 07:06 | XMS_ITS | Clinical Summary ---
Author Organization [facility] Address [address] [place] [address] Phone Care Team Providers Care Load Planner Name Role Phone Foreign Spangler MD, Andrei Arnold Primary Care Provid er Allergies No known [...] [place] PART A AND B [place] [id number] Care Teams Load Planner Relationship Specialty Start Date End Date Andrei Carrasquillo Sr., MD [address] [place] [address] PCP - General Pediatric Orthodontist 03/17/16
--- OUTSIDE RECORDS SUMMARY | 2025-02-22 07:06 | XMS_ITS | Encounter Summary ---
Author Organization [facility] Address [address] [place] [address] Care Team Providers Care Skin Care Therapist Name Role Phone Cayla Erazo APRN, DNP Unavailable Vignesh Pickens MD Primary Care Provider [phone] Encounter Details Date Type Department Care Team (Late st Contact Info) Description 01/23/2025 Telephone [facility] [address], 2nd [place] [address] Ceci Mitchell MD [address] [place] [address] Social History Tobacco Use Types [...] any time in the past 12 m [facility], were you homeless or [...] drink first t rodríguez in the morning (EYE-POWER HAMMER OPERATOR) to steady your nerves or to [...] Office Visit [facility] [address], 2nd [place] [address] Doug Chapman MD [id number] [place] [address] 03/27/2025 10:30 AM EDT Appointment [facility] Ultrasound [address], 2nd [place] [address] 03/27/2025 11:50 AM EDT Clinical Support Medical Office Building Lab [address] [place] [address] 03/27/2025 1:00 PM EDT Office Visit Medical Office Building Urology [address] [facility], [address] [place] [address] Cayla Erazo, HAND BUTTON SPLITTER, DNP [address] [facility] [address] [place] [address] 05/16/2025 8:00 AM EDT Office Visit [facility] [place] [address] [facility], [address] [place] [address] Karly Gracia MD [address] [place] [address] 06/07/2025 1:00 PM EDT Office Visit [facility] [address] [place] [address] Tom Iraheta MD [address] [place] [address] documented as of this encounter [...] documented as of this encounter Care Teams Skin Care Therapist Relationship Specialty Start Date End Date Vignesh Pickens MD [address] [place] [address] PCP - General 12/31/24 Cayla Erazo APRN, DNP [address] [place] [address] Nurse Practitioner Urology 12/20/24 documented as of this encounter
--- OUTSIDE RECORDS SUMMARY | 2025-02-22 07:06 | XMS_ITS | Encounter Summary ---
Author Organization [facility] Address [address] [place] [address] Care Team Providers Care Security Field Supervisor Name Role Phone Daniel Barba MD Primary Care Provider [phone] Cayla Erazo APRN, FREDERICK Unavailable [phone] Encounter Details Date Type Department Care Team ([facility] st Contact Info) Description 12/20/2024 Orders Only External Location [address] [place] [address] Provider, External Social History Tobacco Use Types [...] drink first t rodríguez in the morning (EYE-PERCH MACHINE INSPECTOR) to steady your nerves or to [...] Questionnaire-2 Score 0 12/20/2024 9:49 AM EDT Mtatie Arroyo LPN documented as of this encounter Plan of Treatment Upcoming Encounters Date Type Department Care Team (Late st Contact Info) Description 03/07/2025 10:00 AM EDT Office Visit [facility] [address], [address]nd [place] [address] Doug Chapman MD [address] [address] 03/27/2025 10:30 AM EDT Appointment [facility] Ultrasound [address], 2nd [place] [address] 03/27/2025 11:50 AM EDT Clinical Support Medical Office Building Lab [address] [place] [address] 03/27/2025 1:00 PM EDT Office Visit Medical Office Building Urology [address] [facility], [address] [place] [address] Cayla Erazo APRN, DNP [address] [facility] [address] [place] [address] 05/16/2025 8:00 AM EDT Office Visit [facility] [place] [address] [facility], [address] [place] [address] Karly Gracia MD [address] [place] [address] 06/07/2025 1:00 PM EDT Office Visit [facility] [address] [place] [address] Tom Iraheta MD [address] [place] [address] documented as of this encounter [...] documented as of this encounter Care Teams Security Field Supervisor Relationship Specialty Start Date End Date Daniel Barba MD [address] [place] [address] PCP - General 01/02/21 12/30/24 Cayla Erazo, LIZANDRO, DNP [address] [place] [address] Nurse Practitioner Urology 12/20/24 documented as of this encounter
--- OUTSIDE RECORDS SUMMARY | 2025-02-22 07:07 | XMS_ITS | Encounter Summary ---
Author Organization [facility] Address [address] [place] [address] Care Team Providers Care Spanish Medical Interpreter Name Role Phone Daniel Barba MD Primary Care Provider [phone] Cayla Erazo APRN, [facility] Unavailable [phone] Vignesh Pickens MD Primary Care Provider [phone] Encounter Details Date Type Department Care Team (Late st Contact Info) Description 10/19/2024 Orders Only External Location [address] [place] [address] Provider, External Social History Tobacco Use Types [...] time in the past [address] [facility], were you homeless or living in [...] drink first t rodríguez in the morning (EYE-LEHR CUTTER) to steady your nerves or to get [...] Upcoming Encounters Date Type Department Care Team ([facility] st Contact Info) Description 03/07/2025 10:00 AM EDT Office Visit [facility] [address], 2nd [place] [address] Doug Chapman MD [address] [place] [address] 03/27/2025 10:30 AM EDT Appointment [facility] Ultrasound [address], 2nd [place] [address] 03/27/2025 11:50 AM EDT Clinical Support Medical Office Building Lab [address] [place] [address] 03/27/2025 1:00 PM EDT Office Visit Medical Office Building Urology [address] [facility], [address] [place] [address] Cayla Erazo, SHIP SUPERINTENDENT, DNP [address] [place] [address] 05/16/2025 8:00 AM EDT Office Visit [facility] [place] [address] [facility], [address] [place] [address] Karly Gracia MD [address] [place] [address] 06/07/2025 1:00 PM EDT Office Visit [facility] [address] [place] [address] Tom Iraheta MD [address] [place] [address] documented as of this encounter [...] documented as of this encounter Care Teams Spanish Medical Interpreter Relationship Specialty Start Date End Date Daniel Barba MD [address] [place] [address] PCP - General 01/02/21 12/30/24 Vignesh Pickens MD [address] [place] [address] PCP - General 12/31/24 Cayla Erazo APRN, DNP [address] [place] [address] Nurse Practitioner Urology 12/20/24 documented as of this encounter
[2025-02-22 08:42] LABS: Chloride 84 mmol/L (98-107); Potassium 4.5 mmoL/L (3.5-5.1); Sodium 123 mmol/L (136-145)
[2025-02-22 08:45] LABS: Anion Gap 15.5 mEq/L (5-15); Blood Urea Nitrogen 42 mg/dl (7-17); Calcium 8.9 mg/dl (8.4-10.2); Carbon Dioxide 28 mmol/L (22.0-30.0); Creatinine,Serum 2.50 mg/dl (0.52-1.04); Estimated Glomerular Filt Rate 19 ml/min (>60); GFR (African American) 23 ML/MIN (>60); Glucose 144 mg/dl (74-100)
== END 2025-02-22 23:59 | disposition home or self-care (01) ==
PROVIDERS: PCP Family Medicine; Visit Provider Family Medicine
DX: E87.1 Hypo-osmolality and hyponatremia (principal)
CPT/HCPCS: 36415; 80048

== ENCOUNTER 2025-02-22 10:56 | Emergency (ER) | payer MEDICARE, MEDICAID, SELFPAY ==
--- OUTSIDE RECORDS SUMMARY | 2024-12-20 09:20 | XMS_ITS | Encounter Summary ---
Author Organization [facility] Address [address] [place] [address] Care Team Providers Care Sifter And Miller Name Role Phone Daniel Barba MD Primary Care Provider [phone] Cayla Erazo APRN, DNP Unavailable [phone] Vignesh Pickens MD Primary Care Provider [phone] Reason for Referral * Imaging (Routine) - Closed Specialty Diagnoses / Procedures Referred By Clara stoner Referred To Contact Radiology Diagnoses Gross hematuria Procedures CT Urogram Cayla Erazo APRN, DNP [address] [address] Phone: tel: fax: Referral ID Status Reason Start Date Expiration Date Visits Re quested Visits Authorized [id number] Closed 12/25/2024 06/26/2026 1 1 * Other Medical (Routine) - Pending Review Specialty Diagnoses / Procedures Referred By Clara stoner Referred To Contact Urology Diagnoses Gross hematuria Procedures Cysto- Urology Cayla Erazo APRN, DNP [address] [address] Phone: tel: fax: Referral ID Status Reason Start Date Expiration Date V isits Requested Visits Authorized [id number] Pending Review 12/25/2024 06/26/2026 1 1 * Imaging (Routine) - Authorized Specialty Diagnoses / Procedures Referred By Clara stoner Referred To Contact Radiology Diagnoses Hydronephrosis, unspecified hydronephrosis type Procedures US Renal Complete Cayla Erazo APRN, DNP [address] [address] Phone: tel: fax: Referral ID Status Reason Start Date Expiration Date V isits Requested Visits Authorized [id number] Authorized 12/20/2024 06/21/2026 1 1 Reason for Visit * Reason Comments Female Incontinence * Other Medical (Routine) - Closed Specialty Diagnoses / Procedures Referred By Clara stoner Referred To Contact Urology Diagnoses Hydronephrosis, unspecified hydronephrosis type Urinary retention Procedures UDS Cayla Erazo APRN, DNP [address] [address] Phone: tel: fax: Referral ID Status Reason Start Date Expiration Date Visits Re quested Visits Authorized [id number] Closed 11/08/2024 05/10/2026 1 1 Encounter Details Date Type Department Care Team (Latest Contact Info) Description 12/20/2024 9:20 AM EDT [facility] Visit [facility] [address] [place] [address] Cayla Erazo APRN, DNP [address] [address] Recurrent UTI (Primary Dx); Hydronephrosis, [...] any time in the past 12 m [facility], were you homeless or living in a [facility] (including now)? No 08/20/2024 CAGE ASSESSMENT Answer [...] drink first t rodríguez in the morning (EYE-PHOTOGRAPH RETOUCHER) to steady your nerves or to get rid of a hangover? 0 08/15/2024 CAGE Questionnaire Score 0 024 Utilities Answer Date Recorded In the past 12 months has e [employer], gas, oil, or water [employer] threatened to shut off services in your [...] Notes * Progress Notes - Cayla Erazo, FUR MATCHER, DNP - 12/20/2024 9:20 AM EDTAssociated Order(s): UDS Pre-Procedure Diagnose(s): Hydronephrosis, unspecified hydronephrosis type; Urinary retention Post-Procedure Diagnose(s): Hydronephrosis, unspecified hydronephrosis type; Urinary retention [facility] Note CC: Female Incontinence HPI: Eileen Tovar is a 64 y.o. F who was initially evaluated in Sep 2024 for diagnosis ofbilateral hydronephrosis in Jul 2024 thought to be 2/2 severe constipation. She was treated for UTIwhile inpatient at [facility] and had improvement in renal function and hydronephrosis with indwelling Parekh catheter that was removed prior to discharge to [facility] in [place]. She is a limited historian, presented in [...] useof LUE. She also has PVD, COPD, [place], and DVT treated with 2 blood thinners. She denies ever being impacted with stool before and reportedly sees an outside urologist/oven equipment repairer who presents to the SNF, but could [...] were no vitals filed for this visit. Head Porter Baggage present during entire exam General: Pleasant, alert, [...] or skin jesus present. Imagin10/05/23: [facility] at [place] resulted moderate cortical thinning of kidneys and [...] DNP Authorized by: Cayla Erazo APRN, DNP [place] Protocol: Time out called at: 12/20/2024 10:28 [...] Essential (primary) hypertension CAD (coronary artery disease), [place] coronary artery Controlled diabetes mellitus type II without complication Iron deficiency anemia Second hand smoke exposure Acute kidney injury superimposed on CKD ([facility]/HCC) Arthritis Cellulitis of left knee Chronic respiratory failure COPD (chronic obstructive pulmonary disease) ([facility]) Dehydration with hyponatremia Diabetes mellitus ([facility]/HCC) Hyperlipidemia Restrictive lung disease Stroke ([facility]) [place] coma scale total score 13-15, unspecified coma timing Pyelonephritis Kidney infection Acquired absence of leg above knee Stage 3 chronic kidney disease ([facility]/HCC) Type 2 diabetes mellitus with diabetic chronic kidney disease ([facility]/HCC) Peripheral vascular disease, unspecified ([facility]/HCC) Prosthetic joint infection ([facility]/HCC) Unspecified hydronephrosis Vitamin D deficiency, unspecified Disorder [...] BREAST SURGERY N/A Breast Surgery Reconstruction from [facility] BREAST SURGERY N/A Breast Surgery from [facility] CHOLECYSTECTOMY N/A Cholecystotomy from [facility] KIDNEY SURGERY N/A Kidney Surgery from [facility] KNEE SURGERY N/A Knee Surgery from [facility] MASTECTOMY N/A Breast Surgery Mastectomy from [facility] SHOULDER SURGERY Right Shoulder Surgery Right from [...] Description 03/07/2025 10:00 AM EDT [facility] [address] [place] [phone] Doug Chapman MD [address] [address] 03/27/2025 10:30 AM EDT Appointment [facility] Ultrasound [address] [place] [address] 03/27/2025 11:50 AM EDT Clinical Support Medical Office Building Lab [address] [place] [address] 03/27/2025 1:00 PM EDT Office Visit Medical Office Building Urology [address], [address] [place] [address] Cayla Erazo APRN, DNP [address] [address] 05/16/2025 8:00 AM EDT Office Visit [facility] [place] [address], [address] [place] [address] Karly Gracia MD [address] [place] [address] 06/07/2025 1:00 PM EDT Office Visit [facility] [address] [place] [address] Tom Iraheta MD [address] [place] [address] Scheduled Orders Name Type Priority [...] EDT Hydronephrosis, unspecified hydronephrosis type Urinary retention [place] COMPLEX CYSTOMETROGRAM W/VOID PRESS&URETHRAL PROFILE Routine 12/20/2024 [...] following split bolus administration of IV contrast, [id number], 150 mL. Reformatted images in the coronal [...] MD on 01/03/2025 3:33 PM Cayla Erazo FUR MATCHER, DNP IMG CT PROCEDURES Final Result * Urine Culture - Clinic Collect (12/20/2024 2:33 PM EDT) Culture <10,000 CFU/mL Mixed urogenital, fecal, or skin jesus present. 12/21/2024 2:41 PM EDT [facility] Urine Urine specimen / Unknown Non-blood Collection / Unknown 12/20/2024 2:33 PM EDT 12/20/2024 3:16 PM EDT us Cayla Erazo FUR MATCHER, DNP LAB MICROBIOLOGY - GENER AL ORDERABLES Final Result [facility] [address] [place] [address] * (ABNORMAL) Basic Metabolic Panel, Plasma (12/20/2024 [...] DNP LAB BLOOD ORDERABLES Andi al Result [facility] [address] [place] [address] * INJECTION FOR BLADDER XRAY WITHOUT VOIDING, [place] COMPLEX CYSTOMETROGRAM W/VOID PRESS&URETHRAL PROFILE, UROLOGY UDS WITH BASE PERFORMABLE CHARGES (12/20/2024 10:28 AM EDT) Narrative Cayla Erazo APRN, DNP - 12/20/2024 10:28 AM EDT Cayla Erazo APRN, DNP 01/04/2025 2:40 PM UDS Date/Time: 12/20/2024 10:28 AM Performed by: Cayla Erazo APRN, DNP Authorized by: Cayla Erazo APRN, DNP [place] Protocol: Time out called at: 12/20/2024 10:28 [...] 1034, Until Hermelinda 12/20/24 at 1034, Routine, IntraprocedureIndications:[place] nephrosis, unspecified hydronephrosis type,Urinary retention Given by [...] documented as of this encounter Care Teams Sifter And Miller Relationship Specialty Start Date End Date Daniel Barba MD [address] [place] [address] PCP - General 01/02/21 12/30/24 Vignesh Pickens MD [address] [place] [address] PCP - General 12/31/24 Cayla Erazo APRN, DNP [address] [place] [address] Nurse Practitioner Urology 12/20/24 documented as of this encounter
--- OUTSIDE RECORDS SUMMARY | 2024-12-31 14:01 | XMS_ITS | Encounter Summary ---
Author Organization [facility] Address [address] [place] [id number] Care Team Providers Care Hall Worker Name Role Phone Cayla Erazo APRN, DNP Unavailable [phone] Vignesh Pickens MD Primary Care Provider [phone] Reason for Referral * Imaging (Routine) - Closed Specialty Diagnoses / Procedures Referred By Clara t Referred To Contact Cardiology Diagnoses S/P AKA (above knee amputation) bilateral (CMS/HCC) Encounter for surgical aftercare following surgery on the circulatory system Procedures VAS Ankle Brachial Index - Segmental Karly Gracia MD [address] [place] [address] Phone: tel: fax: Referral ID Status Reason Start Date Expiration Date V isits Requested Visits Authorized [id number] Closed Perform Procedure 11/08/2024 05/10/2026 1 1 Reason for Visit * Imaging (Routine) - Closed Specialty Diagnoses / Procedures Referred By Clara stoner Referred To Contact Cardiology Diagnoses S/P AKA (above knee amputation) bilateral (CMS/HCC) Encounter for surgical aftercare following surgery on the circulatory system Procedures VAS Ankle Brachial Index - Segmental Karly Gracia MD [address] [place] [address] Phone: tel: fax: Referral ID Status Reason Start Date Expiration Date V isits Requested Visits Authorized [id number] Closed Perform Procedure 11/08/2024 05/10/2026 1 1 Encounter Details Date Type Department Care Team (Latest Contact Info) Description 12/31/2024 2:01 PM EDT - 12/31/2024 11:59 PM EDT Hospital Encounter [facility] Vascular Lab [address] 5th Floor [address], [address] [place] [address] S/P AKA (above knee amputation) bilateral (CMS/HCC); [...] any time in the past 12 m [facility], were you homeless or living [...] first t rodríguez in the morning (EYE-SENIOR OPERATIONS MANAGER) to steady your nerves or to get [...] [facility] Urology [address], [address]nd [place] [address] Doug Chapman MD [address] [facility] [address] [place] [address] 03/27/2025 10:30 AM EDT Appointment [facility] Ultrasound [address]nd [place] [address] 03/27/2025 11:50 AM EDT Clinical Support Medical Office Building Lab [address] [place] [address] 03/27/2025 1:00 PM EDT Office Visit Medical Office Building Urology [address] [facility], [address] [place] [address] Cayla Erazo, REFINERY OPERATOR REFORMING UNIT, DNP [id number] [place] [address] 05/16/2025 8:00 AM EDT Office Visit [facility] [place] [address] [facility], [address] [place] [address] Karly Gracia MD [address] [place] [address] 06/07/2025 1:00 PM EDT Office Visit [facility] [address] [place] [address] Tom Iraheta MD [address] [place] [address] documented as of this encounter [...] are demonstrated at the levels of the TRASH HAULER, NOVELTY CHAIN MAKER and DPA. Segmental pressures are within normal limits with a NOVELTY CHAIN MAKER JASEN of 0.98 (138 mmHg) and a DPA JASEN of 1.28 (181 mmHg). Digit pressures are 115 mmHg. Left: AKA is noted. Multiphasic waveforms are demonstrated at the level of the TRASH HAULER. 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 COMPARISON: None. FINDINGS: Right: Multiphasic waveforms are demonstrated at the levels of the TRASH HAULER,NOVELTY CHAIN MAKER and DPA. Segmental pressures are within normal limits with a NOVELTY CHAIN MAKER ABIof 0.98 (138 mmHg) and a DPA JASEN of 1.28 (181 mmHg). Digit pressures qbs453 mmHg. Left: AKA is noted. Multiphasic waveforms are demonstrated at the level ofthe TRASH HAULER. IMPRESSION: Right: Normal study; No evidence of [...] documented as of this encounter Care Teams Hall Worker Relationship Specialty Start Date End Date Vignesh Pickens MD [address] [place] [address] PCP - General 12/31/24 Cayla Erazo APRN, DNP [address] [facility] [address] [place] [address] Nurse Practitioner Urology 12/20/24 documented as of this encounter
--- OUTSIDE RECORDS SUMMARY | 2024-12-31 14:01 | XMS_ITS | Encounter Summary ---
Author Organization [facility] Address [address] [place] [address] Care Team Providers Care Measurer Name Role Phone Cayla Erazo APRN, FREDERICK Unavailable [phone] Vignesh Pickens MD Primary Care Provider [phone] Reason for Referral * Imaging (Routine) - Closed Specialty Diagnoses / Procedures Referred By Contac t Referred To Contact Cardiology Diagnoses Coronary artery disease involving standing rock heart without angina pectoris, unspecified vessel or lesion type S/P AKA (above knee amputation) bilateral (CMS/HCC) Acute left arterial ischemic stroke, ICA (internal carotid artery) (CMS/HCC) Procedures VAS US Carotid Duplex Bilateral Stent Karly Gracia MD [address] [place] [address] Phone: tel: fax: Referral ID Status Reason Start Date Expiration Date V isits Requested Visits Authorized [id number] Closed Perform Procedure 11/08/2024 05/10/2026 1 1 Reason for Visit * Imaging (Routine) - Closed Specialty Diagnoses / Procedures Referred By Contac t Referred To Contact Cardiology Diagnoses Coronary artery disease involving standing rock heart without angina pectoris, unspecified vessel or lesion type S/P AKA (above knee amputation) bilateral (CMS/HCC) Acute left arterial ischemic stroke, ICA (internal carotid artery) (CMS/HCC) Procedures VAS US Carotid Duplex Bilateral Stent Karly Gracia MD [address] [place] [address] Phone: tel: fax: Referral ID Status Reason Start Date Expiration Date V isits Requested Visits Authorized [id number] Closed Perform Procedure 11/08/2024 05/10/2026 1 1 Encounter Details Date Type Department Care Team (Latest Contact Info) Description 12/31/2024 2:01 PM EDT - 12/31/2024 11:59 PM EDT Hospital Encounter [facility] Vascular Lab [address] [facility] 5th [address] [place] [address] Coronary artery disease involving standing rock heart without angina pectoris, unspecified vessel or lesion type; S/P AKA (above knee amputation) bilateral ([facility]); Acute left arterial ischemic stroke, ICA (internal carotid artery) ([facility]) Discharge Disposition: Home or Self [...] any time in the past 12 m [facility], were you homeless or living in a long term (including now)? No 08/20/2024 CAGE ASSESSMENT Answer [...] drink first t rodríguez in the morning (EYE-BILLET ASSEMBLER) to steady your nerves or to get rid of a hangover? 0 08/15/2024 CAGE Questionnaire Score 0 024 Utilities Answer Date Recorded In the past 12 months has th e [employer], gas, oil, or water [employer] threatened to shut off services in your [...] Description 03/07/2025 10:00 AM EDT Office Visit [facility] Urology [address], [address] [place] [address] Doug Chapman MD [address] [address] 03/27/2025 10:30 AM EDT Appointment [facility] Ultrasound [address] [place] [address] 03/27/2025 11:50 AM EDT Clinical Support Medical Office Building Lab [address] [place] [address] 03/27/2025 1:00 PM EDT Office Visit Medical Office Building Urology [address] [facility], [address] [place] [address] Cayla Erazo, DIESEL SERVICE TECHNICIAN, DNP [address] [place] [address] 05/16/2025 8:00 AM EDT Office Visit [facility] [place] [address] [facility], [address] [place] [address] Karly Gracia MD [address] [place] [address] 06/07/2025 1:00 PM EDT Office Visit [place] [id number] [facility] [address] [address] Tom Iraheta MD [address] [place] [address] documented as of this encounter Procedures Procedure Name Priority Date/Time Associated Diagnosis Comments VAS US CAROTID DUPLEX BILATERAL Routine 12/31/2024 2:27 PM EDT Coronary artery disease involving standing rock heart without angina pectoris, unspecified vessel or lesion type S/P AKA (above knee amputation) bilateral (CMS/HCC) Acute left arterial ischemic stroke, ICA (internal carotid artery) ([facility]) documented in this encounter Results [...] Visit Diagnoses Diagnosis Coronary artery disease involving standing rock heart without angina pectoris, unspecified vessel or [...] documented as of this encounter Care Teams Measurer Relationship Specialty Start Date End Date Vignesh Pickens MD [address] [place] [address] PCP - General 12/31/24 Cayla Erazo, LIZANDRO, DNP [address] [place] [address] Nurse Practitioner Urology 12/20/24 documented as of this encounter
--- OUTSIDE RECORDS SUMMARY | 2024-12-31 16:00 | XMS_ITS | Encounter Summary ---
Author Organization [facility] Address [address] [place] [address] Care Team Providers Care Buildings And Grounds Supervisor Name Role Phone Cayla Erazo APRN, DNP Unavailable [phone] Vignesh Pickens MD Primary Care Provider [phone] Reason for Referral * Imaging (Routine) - Pending Review Specialty Diagnoses / Procedures Referred By Contac t Referred To Contact Cardiology Diagnoses Asymptomatic bilateral carotid artery stenosis Procedures VAS US Carotid Duplex Bilateral Stent Ro Montaño PA [address] [place] [address] Phone: tel: fax: Referral ID Status Reason Start Date Expiration Date Visits Requested Visits Authorized [id number] Pending Review Perform Procedure 12/31/2024 07/02/2026 1 1 Reason for Visit * Reason Comments Coronary artery disease involving craig heart without gertrude S/P AKA (above knee amputation) bilatera l Acute left arterial ischemic stroke, ICA (internal carotid * Consultation (Urgent) - Closed Specialty Diagnoses / Procedures Referred By Contact Referred To Contact Vascular Surgery / [facility] Diagnoses Coronary artery disease involving craig heart without angina pectoris, unspecified vessel or lesion type Karly Gracia MD [address] [place] [address] Phone: tel:[phone] fax:[phone] [facility] [address] [place] [address] Phone: tel: fax: Referral ID Status Reason Start Date Expiration Date V isits Requested Visits Authorized [id number] Closed Specialty Services Required 11/05/2024 05/07/2026 1 1 Encounter Details Date Type Department Care Team (Latest Contact Info) Description 12/31/2024 4:00 PM EDT Office Visit [facility] [address] [place] [address] Bert Canela MD [address] [facility] [address] [place] [address] Asymptomatic bilateral carotid artery stenosis (Primary Dx); PVD (peripheral vascular disease) ([facility]); Hx of AKA (above knee amputation), left ([facility]); History of stroke; Type 2 diabetes mellitus without complication, 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 No 08/20/2024 CAGE ASSESSMENT Answer [...] drink first t rodríguez in the morning (EYE-REVIT DRAFTER) to steady your nerves or to get [...] Hx of AKA (above knee amputation), left ([facility]) 12/31/2024 PVD (peripheral vascular disease) ([facility]) 12/31/2024 Asymptomatic bilateral carotid artery stenosis 12/31/2024 Other specified cardiac arrhythmias 11/05/2024 Cerebral infarction due to unspecified occlusion or stenosis of left carotid arteries ([facility]) 11/05/2024 Hypertensive chronic kidney disease with stage 1 through stage 4 chronic kidney disease, or unspecified chronic kidney disease 10/12/2024 Urinary incontinence without sensory awareness 10/12/2024 Anemia in chronic kidney disease 10/12/2024 Chronic kidney disease, stage 3a ([facility]) 10/12/2024 Urinary retention 09/26/2024 Recurrent UTI 09/26/2024 Post-menopausal atrophic vaginitis 09/26/2024 Cyst of kidney, acquired 09/21/2024 Insomnia, unspecified 09/21/2024 Pain, unspecified 08/22/2024 Unspecified hydronephrosis 08/21/2024 Tubulo-interstitial nephritis, not specified as acute or chronic 08/21/2024 Other disorders of phosphorus metabolism 08/21/2024 Hypertensive heart and chronic kidney disease with heart failure and stage 1 through stage 4 chronic kidney disease, or unspecified chronic kidney disease ([facility]) 08/21/2024 Glycosuria 08/20/2024 Type 2 diabetes mellitus with diabetic chronic kidney disease ([facility]) 08/19/2024 Other nonspecific abnormal finding of lung field 08/19/2024 Stage 3 chronic kidney disease ([facility]) 08/17/2024 Hydronephrosis with renal and ureteral calculous obstruction 08/17/2024 Kidney infection 08/16/2024 Dave coma scale total score 13-15, unspecified coma timing 08/15/2024 Pyelonephritis 08/15/2024 Unspecified abdominal pain 08/15/2024 Old myocardial infarction 08/15/2024 Calculus of kidney 08/15/2024 Fecal impaction ([facility]) 08/14/2024 Constipation, unspecified 08/14/2024 Headache, unspecified 08/14/2024 Nontoxic single thyroid nodule 07/10/2024 Edema, unspecified 07/02/2024 Tinea unguium 06/07/2024 Pain in right toe(s) 06/07/2024 Pain in left toe(s) 06/07/2024 Disorder of kidney and ureter, unspecified 04/25/2024 Secondary hyperparathyroidism of renal origin ([facility]) 04/09/2024 Dysuria 04/09/2024 Adult failure to thrive 04/02/2024 Vitamin D deficiency, unspecified 12/21/2023 Acquired absence of leg above knee 12/13/2023 Peripheral vascular disease, unspecified ([facility]) 12/13/2023 Weakness 12/13/2023 Unspecified right bundle-branch block 12/09/2023 Other acute postprocedural pain 12/09/2023 Mixed simple and mucopurulent chronic bronchitis ([facility]) 12/05/2023 Other specified disorders of the skin and subcutaneous tissue 11/29/2023 Morbid (severe) obesity due to excess calories ([facility]) 10/31/2023 Atrial premature depolarization 10/08/2023 Hyperkalemia 10/05/2023 Hemiplegia and hemiparesis following cerebral infarction affecting left non- dominant side ([facility])10/04/2023 Dyspnea, unspecified 10/04/2023 Chronic diastolic (congestive) heart failure ([facility]) 10/04/2023 Presence of left artificial knee joint 09/27/2023 Acute kidney injury superimposed on CKD ([facility]) 01/04/2023 Arthritis 01/04/2023 Cellulitis of left knee 01/04/2023 Chronic respiratory failure 01/04/2023 COPD (chronic obstructive pulmonary disease) ([facility]) 01/04/2023 Dehydration with hyponatremia 01/04/2023 Diabetes mellitus ([facility]) 01/04/2023 Hyperlipidemia 01/04/2023 Restrictive lung disease 01/04/2023 Stroke ([facility]) 01/04/2023 Second hand smoke exposure 10/04/2022 Iron deficiency anemia 03/01/2022 Hypotension 06/03/2017 GERD without esophagitis 03/28/2017 CAD (coronary artery disease), craig coronary artery 03/28/2017 Controlled diabetes mellitus type [...] amputation), left (CMS/HCC) PVD (peripheral vascular disease) ([facility]) Asymptomatic bilateral carotid artery stenosis - Primary [...] Description 03/07/2025 10:00 AM EDT Office Visit [place] [facility] [address] [place] [address] Doug Chapman MD [address] [facility] [address] [place] [address] 03/27/2025 10:[address] [facility] Ultrasound [address] [place] [id number] 03/27/2025 11:50 AM EDT Clinical Support Medical Office Building Lab [address] [place] [address] 03/27/2025 1:00 PM EDT Office Visit Medical Office Building Urology [address], [address] [place] [address] Cayla Erazo, LABEL DRIER, DNP [address] [facility] [address] [place] [address] 05/16/2025 8:00 AM EDT Office Visit [facility] [place] [address], [address] [place] [address] Karly Gracia MD [address] [place] [address] 06/07/2025 1:00 PM EDT Office Visit [facility] [address] [place] [address] Tom Iraheta MD [address] [place] [address] Scheduled Orders Name Type Priority [...] 2 diabetes mellitus without complication, unspecified whether watermelon inspector insulin use documented in this encounter Additional [...] documented as of this encounter Care Teams Buildings And Grounds Supervisor Relationship Specialty Start Date End Date Vignesh Pickens MD [address] [place] [address] PCP - General 12/31/24 Cayla Erazo APRN, FREDERICK [address] [facility] [address] [place] [address] Nurse Practitioner Urology 12/20/24 documented as of this encounter
--- OUTSIDE RECORDS SUMMARY | 2025-01-03 14:15 | XMS_ITS | Encounter Summary ---
Author Organization [facility] Address [address] [place] [address] Care Team Providers Care Auto Parts Counter Person Name Role Phone Cayla Erazo APRN, DNP Unavailable [phone] Vignesh Pickens MD Primary Care Provider [phone] Reason for Referral * Imaging (Routine) - Closed Specialty Diagnoses / Procedures Referred By Clara stoner Referred To Contact Radiology Diagnoses Gross hematuria Procedures CT Urogram Cayla Erazo APRN, DNP [address] [address] Phone: tel: fax: Referral ID Status Reason Start Date Expiration Date Visits Re quested Visits Authorized [id number] Closed 12/25/2024 06/26/2026 1 1 Reason for Visit * Imaging (Routine) - Closed Specialty Diagnoses / Procedures Referred By Clara stoner Referred To Contact Radiology Diagnoses Gross hematuria Procedures CT Urogram Cayla Erazo APRN, DNP [address] [address] Phone: tel: fax: Referral ID Status Reason Start Date Expiration Date Visits Re quested Visits Authorized [id number] Closed 12/25/2024 06/26/2026 1 1 Encounter Details Date Type Department Care Team (Latest Contact Info) Description 01/03/2025 2:15 PM EDT - 01/03/2025 11:59 PM EDT Hospital Encounter [facility] CT [address], [address]nd [place] [address] Gross hematuria Discharge Disposition: Home or Self [...] any time in the past 12 m [facility], were you homeless or living in [...] drink first t rodríguez in the morning (EYE-REAL ESTATE UNDERWRITER) to steady your nerves or to get rid of a hangover? 0 08/15/2024 CAGE Questionnaire Score 0 024 Utilities Answer Date Recorded In the past 12 months has th e [employer], gas, oil, or water [employer] threatened to shut off services in your [...] Description 03/07/2025 10:00 AM EDT Office Visit [facility] Urology [address], [address] [place] [phone] Doug Chapman MD [address] [place] [address] 03/27/2025 10:30 AM EDT Appointment [facility] Ultrasound [address]nd [place] [address] 03/27/2025 11:50 AM EDT Clinical Support Medical Office Building Lab [address] [place] [address] 03/27/2025 1:00 PM EDT Office Visit Medical Office Building Urology [address] [facility], [address] [place] [address] Cayla Erazo APRN, FREDERICK [address] [facility] [address] [place] [address] 05/16/2025 8:00 AM EDT Office Visit [facility] [place] [address] [facility], [address] [place] [address] Karly Gracia MD [address] [place] [address] 06/07/2025 1:00 PM EDT Office Visit [facility] [address] [place] [address] Tom Iraheta MD [address] [place] [address] documented as of this encounter [...] following split bolus administration of IV contrast, [id number], 150 mL. Reformatted images in the coronal [...] MD on 01/03/2025 3:33 PM Cayla Erazo EYEGLASS LENS CUTTER, [facility] IMG CT PROCEDURES Final Result documented in [...] documented as of this encounter Care Teams Auto Parts Counter Person Relationship Specialty Start Date End Date Vignesh Pickens MD [address] [place] [address] PCP - General 12/31/24 Cayla Erazo APRN, FREDERICK [phone] [place] [address] Nurse Practitioner Urology 12/20/24 documented as of this encounter
--- OUTSIDE RECORDS SUMMARY | 2025-01-24 14:00 | XMS_ITS | Encounter Summary ---
Author Organization [facility] Address [address] [place] [address] Care Team Providers Care French Teacher Name Role Phone Cayla Erazo APRN, DNP Unavailable Vignesh Pickens MD Primary Care Provider [phone] Encounter Details Date Type Department Care Team (Late st Contact Info) Description 01/24/2025 2:00 PM EDT Pre-[facility] Testing [place] [facility] [address], [address]st [place] [address] Social History Tobacco Use Types Packs/Day Years [...] time in the past 12 m [facility], were you homeless or living in a [...] drink first t rodríguez in the morning (EYE-OPEN HEARTH HELPER) to steady your nerves or to [...] mouth wide, with pt.'s nurse Gabriela at [facility], via phone. . Cardiovascular: CAD (s/p cardiac stents (2018).), carotid artery disease (asymptomatic Bilat. CHAVA. s/p left ICA stent (2013).), CHF (chronic diastolic CHF.), dysrhythmias (Hx RBBB.), hyperlipidemia, past [place] and PVD.Does not have angina, atrial fibrillation, [...] - CAD s/p PCI in 2017 in [facility] (records requested), ICM with LVEF 40-45% in [...] Musculoskeletal: arthritis. Does not have multiple sclerosis. [facility]/Sk/Inte additional comments: Hx Left AKA in 11/2023 [...] INR 2.5 to 3.5 Prevention of recurrent [place] INR 2.5 to 3.5 INR 03/06/2014 1.0 (NOTE) OPTIMAL INR RANGES FOR PATIENT ON ORAL ANTICOAGULANT THERAPY Prevention of venous thromboembolism INR 2.0 to 3.0 In patients with heart disease: Atrial fibrillation INR 2.0 to 3.0 Valvular heart disease INR 2.0 to 3.0 Tissue heart valves INR 2.0 to 3.0 Mechanical prosthetic valves INR 2.5 to 3.5 Prevention of recurrent [place] INR 2.5 to 3.5 INR 03/05/2014 1.0 (NOTE) OPTIMAL INR RANGES FOR PATIENT ON ORAL ANTICOAGULANT THERAPY Prevention of venous thromboembolism INR 2.0 to 3.0 In patients with heart disease: Atrial fibrillation INR 2.0 to 3.0 Valvular heart disease INR 2.0 to 3.0 Tissue heart valves INR 2.0 to 3.0 Mechanical prosthetic valves INR 2.5 to 3.5 Prevention of recurrent [place] INR 2.5 to 3.5 Visit Vitals Wt 85.7 kg (189 lb) LMP (LMP Unknown) BMI 32.44 kg/m?? OB Status Postmenopausal Smoking Status Former BSA 1.97 m?? Physical Exam Airway Cardiovascular Dental Pulmonary Neurological (+) hemiplegia Skin Musculoskeletal Extremities Anesthesia Plan ASA 3 Anesthesia technique(s) discussed with the patient/family: general Comment: WAYLON phone screen with pt.'s nurse Gabriela, at [facility]. Discussed withDr. Wood and discussed with Dr. Ceci Mitchell, RE: holding Plavix and Xarelto. Pearl Chopra, SIGN CARPENTER [1] Past 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: Diagnosis Date Anxiety [...] BREAST SURGERY N/A Breast Surgery Reconstruction from [facility] BREAST SURGERY N/A Breast Surgery from [facility] CHOLECYSTECTOMY N/A Cholecystotomy from [facility] KIDNEY SURGERY N/A Kidney Surgery from [facility] KNEE SURGERY N/A Knee Surgery from [facility] MASTECTOMY N/A Breast Surgery Mastectomy from [facility] SHOULDER SURGERY Right Shoulder Surgery Right from [facility] [5] Allergies Allergen Reactions Sulfa Drugs Anaphylaxis Ultram [Tramadol] Swelling lips swell Hydrocodone Unknown - Patient states they do not know rxn details [facility] is unaware of what reaction. Pedi-Pre Tape [place] [Wound Dressing Adhesive] Rash Wellbutrin [Bupropion] Rash [...] card, photo ID, along with power of corporate associate attorney, guardianship or advanced directives if applicable [...] Description 03/07/2025 10:00 AM EDT Office Visit [facility] Urology [address], [address]nd [place] [address] Doug Chapman MD [address] [place] [address] 03/27/2025 10:30 AM EDT Appointment [facility] Ultrasound [address], [address]nd [place] [address] 03/27/2025 11:50 AM EDT Clinical Support Medical Office Building Lab [facility] [place] [phone] 03/27/2025 1:00 PM EDT Office Visit Medical Office Building Urology [address], [address] [place] [address] Cayla Erazo APRN, DNP [address] [place] [address] 05/16/2025 8:00 AM EDT Office Visit [facility] [place] [address], [address] [place] [address] Karly Gracia MD [address] [place] [address] 06/07/2025 1:00 PM EDT Office Visit [facility] [address] [place] [address] Tom Iraheta MD [address] [place] [address] documented as of this [...] documented as of this encounter Care Teams French Teacher Relationship Specialty Start Date End Date Vignesh Pickens MD [address] [place] [address] PCP - General 12/31/24 Cayla Erazo APRN, DNP [address] [place] [address] Nurse Practitioner Urology 12/20/24 documented as of this encounter
--- OUTSIDE RECORDS SUMMARY | 2025-01-31 08:03 | XMS_ITS | Encounter Summary ---
Author Organization [facility] Address [address] [place] [address] Care Team Providers Care Customer Retention Representative Name Role Phone Cayla Erazo APRN, DNP Unavailable [phone] Vignesh Pickens MD Primary Care Provider [phone] Reason for Visit * Auth/Cert (Routine) Specialty Diagnoses / Procedures Referred By Contac t Referred To Contact Diagnoses Gross hematuria Gross hematuria Procedures AR CYSTO/URETERO/PYELOSC,BX &/OR FULG LESN URETEROSCOPY, WITH BIOPSY POSSIBLE STENT PLACEMENTS Ceci Mitchell MD [address] [address] Phone: tel: fax: [facility] [address] [place] [address] Phone: tel: Referral ID Status Reason Start Date Expiration Date Visits Re quested Visits Authorized [id number] 1 1 Encounter Details Date Type Department Care Team (Latest Contact Info) Description 01/31/2025 8:03 AM EDT - 01/31/2025 1:39 PM EDT Hospital Encounter [facility] [address] [place] [address] Ceci Mitchell MD [address] [address] Urinary retention (Primary Dx); Gross [...] any time in the past 12 m [facility], were you homeless or living in a [...] drink first t rodríguez in the morning (EYE-JUNIOR NETWORK ENGINEER) to steady your nerves or to get rid of a hangover? 0 08/15/2024 CAGE Questionnaire Score 0 024 Utilities Answer Date Recorded In the past 12 months has e [employer], gas, oil, or water company threatened to [...] confirm your location ahead of your appointment) [facility] Urology Department Clinic at [facility] [address] [facility] [address], [address] [place] [address] Clinic After Hours [facility] Office Building U[facility] Clinic [facility] [address] [place] [address] Clinic After Hours documented in this encounter [...] POSTOPERATIVE DIAGNOSIS: Same SURGEON: Ceci Mitchell MD LITIGATION SUPPORT ANALYST SURGEON(S): Gerry Cullen DO, Doug Lundy MD [...] the start of the case. A 19 Kittitian rigid cystoscope was introduced into the patient's [...] of the renal pelvis. We advanced a [place]de[place] catheter over our sensor wire and performed [...] leave stents bilaterally with strings. Used 7 Kittitian by 24 cm double-J stents on strings. These were placed without difficulty and intraoperative fluoroscopy was used to confirm appropriate positioning with the proximal curls in the renal pelvises bilaterally in the distal curls in the bladder. An 18 Kittitian García catheter was placed at the conclusion [...] Cullen DO PGY-3, Department of Urology Pager: [phone] Cosigned by Ceci Mitchell MD at 01/31/2025 [...] (cerebral infarction) COPD (chronic obstructive pulmonary disease) ([facility]) Depression Fibromyalgia History of falling History of [...] BREAST SURGERY N/A Breast Surgery Reconstruction from [employer] BREAST SURGERY N/A Breast Surgery from [employer] CHOLECYSTECTOMY N/A Cholecystotomy from [employer] KIDNEY SURGERY N/A Kidney Surgery from [employer] KNEE SURGERY N/A Knee Surgery from [employer] MASTECTOMY N/A Breast Surgery Mastectomy from [employer] SHOULDER SURGERY Right Shoulder Surgery Right from [employer] [3] No medications prior to admission. [4] Allergies Allergen Reactions Sulfa Drugs Anaphylaxis Ultram [Tramadol] Swelling lips swell Hydrocodone Unknown - Patient states they do not know rxn details [facility] is unaware of what reaction. Pedi-Pre Tape [place] [Wound Dressing Adhesive] Rash Wellbutrin [Bupropion] Rash [...] Description 03/07/2025 10:00 AM EDT Office Visit [facility] Urology [address] [place] [address] Doug Chapman MD [address] [place] [address] 03/27/2025 10:30 AM EDT Appointment [facility] Ultrasound [address] [place] [address] 03/27/2025 11:50 AM EDT Clinical Support Medical Office Building Lab [address] [place] [address] 03/27/2025 1:00 PM EDT Office Visit Medical Office Building Urology [address] [facility], [address] [place] [address] Cayla Erazo, REFRIGERATION LEAD, DNP [address] [place] [address] 05/16/2025 8:00 AM EDT Office Visit [facility] [place] [address] [facility], [address] [place] [address] Karly Gracia MD [address] [place] [address] 06/07/2025 1:00 PM EDT Office Visit [facility] [address] [facility] [address] [place] [address] Tom Iraheta MD [address] [place] [address] documented as of this encounter [...] Routine 01/31/2025 10:22 AM EDT Gross hematuria AR CYSTO/URETERO/PYELOS C,BX &/OR FULG LESN 01/31/2025 9:32 [...] Comment 01/31/2025 11:41 AM EDT HEALTHCARE LAB Business Machine Operator ID Abbey Medina 01/31/2025 11:41 AM EDT HEALTHCARE LAB Device ID [id number] 01/31/2025 11:41 AM EDT HEALTHCARE LAB Specimen Type POC Capillary 01/31/2025 11:41 AM EDT HEALTHCARE LAB Blood Capillary blood specimen / Unknown 01/31/2025 11:39 AM EDT 01/31/2025 11:41 AM EDT us Ceci Mitchell MD LAB POINT OF CARE TE ST DOCKED DEVICE UNSOLICITED RESULTS Final Result [facility] [address] [place] [address] * [place] Less than 1 Hour Intraoperative (01/31/2025 11:14 AM EDT) Narrative IMAGING - 01/31/2025 11:15 AM EDT Images were obtained for surgical purposes. See Ceci Mitchell's surgical note in the patient's chart for the findings. us Ceci Mitchell MD IMG FLUOROSCOPY PROCEDURES F inal Result IMAGING * (ABNORMAL) Fungal Culture, Routine (01/31/2025 10:23 AM EDT) Culture Confluent Growth Maira glabrata(A) 02/08/2025 11:50 AM EDT [facility] Urine Urinary bladder structure / Unknown 01/31/2025 10:23 AM EDT 01/31/2025 11:38 AM EDT Comment:Pre-op diagnosis: Gross hematuria us Ceci Mitchell MD LAB MICROBIOLOGY - GENERAL O RDERABLES Final Result Performing Organization Address City/[facility]/[place] [address] * Urine Culture (01/31/2025 10:22 AM EDT) Pathologist [facility] Culture No growth at day 1 02/01/2025 8:02 AM EDT [facility] Urine Urinary bladder structure / Unknown 01/31/2025 10:22 AM EDT 01/31/2025 11:38 AM EDT Comment:Pre-op diagnosis: Gross hematuria us Ceci Mitchell MD LAB MICROBIOLOGY - GENERAL O RDERABLES Final Result Performing Organization Address [facility] [place] [address] * (ABNORMAL) POCT glucose meter (01/31/2025 8:47 [...] 01/31/2025 8:49 AM EDT [facility] Business Machine Operator ID Khai Jamison 02/01/20 8:49 AM EDT HEALTHCARE LAB Device ID [id number] 01/31/2025 8:49 AM EDT HEALTHCARE LAB Specimen Type POC Capillary 01/31/2025 8:49 AM EDT HEALTHCARE LAB Blood Capillary blood specimen / Unknown 01/31/2025 8:47 AM EDT 01/31/2025 8:49 AM EDT us Ceci Mitchell MD LAB POINT OF CARE TE ST DOCKED DEVICE UNSOLICITED RESULTS Final Result [facility] [address] [place] [address] documented in this encounter Visit Diagnoses Diagnosis [...] documented as of this encounter Care Teams Customer Retention Representative Relationship Specialty Start Date End Date Vignesh Pickens MD [address] [place] [address] PCP - General 12/31/24 Cayla Erazo APRN, FREDERICK [id number] [place] [address] Nurse Practitioner Urology 12/20/24 documented as of this encounter
--- OUTSIDE RECORDS SUMMARY | 2025-01-31 08:55 | XMS_ITS | Encounter Summary ---
Author Organization Healthcare Address [address] [place] [address] Care Team Providers Care Information Technology Security Analyst Name Role Phone Cayla Erazo APRN, DNP Unavailable [phone] Vignesh Pickens MD Primary Care Provider [phone] Reason for Visit * Auth/Cert (Routine) Specialty Diagnoses / Procedures Referred By Contelvie t Referred To Contact Diagnoses Gross hematuria Gross hematuria Procedures [place] CYSTO/URETERO/PYELOSC,BX &/OR FULG LESN URETEROSCOPY, WITH BIOPSY POSSIBLE STENT PLACEMENTS Ceci Mitchell MD [address] [address] Phone: tel: fax: [facility]PERATING ROOM [address] [place] [address] Phone: tel: Referral ID Status Reason Start Date Expiration Date Visits Re quested Visits Authorized [id number] 1 1 Encounter Details Date Type Department Care Team (Late st Contact Info) Description 01/31/2025 8:55 AM EDT - 01/31/2025 10:10 AM EDT Surgery [facility]PERATING ROOM [address] [place] [address] Ceci Mitchell MD [address] [address] URETEROSCOPY,CYSTOSCOP Y, RETROGRADE PYELOGRAM, BILATERAL STENT PLACEMENT [98084 (CPT )] Surgery Details Date/Time Status Location OR Service Patient Class Case Class Case Type Trauma Case? 01/31/2025 8:55 AM Posted [facility] E-Electiv e Panel 1 [...] any time in the past 12 m [facility], were you homeless or living in a 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 (including now)? No 08/20/2024 CAGE ASSESSMENT Answer [...] drink first t rodríguez in the morning (EYE-CONSULTANT TEACHER) to steady your nerves or to get [...] [facility] at [facility] [address], 2nd Floor, Wing [address], [address] [place] [address] Clinic After Hours [facility] Medical Office Building Urology Clinic [address] [place] [address] Clinic After Hours documented in this encounter [...] POSTOPERATIVE DIAGNOSIS: Same SURGEON: Ceci Mitchell MD FEATHER CUTTING MACHINE FEEDER SURGEON(S): Gerry Cullen DO, Doug Lundy MD [...] the start of the case. A 19 [place] Islander rigid cystoscope was introduced into the [...] of the renal pelvis. We advanced a [place] catheter over our sensor wire and performed [...] leave stents bilaterally with strings. Used 7 [place] Islander by 24 cm double-J stents on strings. These were placed without difficulty and intraoperative fluoroscopy was used to confirm appropriate positioning with the proximal curls in the renal pelvises bilaterally in the distal curls in the bladder. An 18 [place] Island[place] García catheter was placed at the [...] Cullen DO PGY-3, Department of Urology Pager: [phone] Cosigned by Ceci Mitchell MD at 01/31/2025 [...] [employer] KIDNEY SURGERY N/A Kidney Surgery from [employer] KNEE SURGERY N/A Knee Surgery from [employer] MASTECTOMY N/A Breast Surgery Mastectomy from [employer] SHOULDER SURGERY Right Shoulder Surgery Right from [employer] [3] No medications prior to admission. [4] Allergies Allergen Reactions Sulfa Drugs Anaphylaxis Ultram [Tramadol] Swelling lips swell Hydrocodone Unknown - Patient states they do not know rxn details [facility] is unaware of what reaction. Pedi-Pre Tape [place] [Wound Dressing Adhesive] Rash Wellbutrin [Bupropion] Rash [...] Description 03/07/2025 10:00 AM EDT Office Visit [facility] Urology [address], 2nd [place] [address] Doug Chapman MD [address] [place] [address] 03/27/2025 10:30 AM EDT Appointment [facility] Ultrasound [address], 2nd [place] [address] 03/27/2025 11:50 AM EDT Clinical Support Medical Office Building Lab [address] [place] [address] 03/27/2025 1:00 PM EDT Office Visit Medical Office Building Urology [address] [facility], [address] [place] [address] Cayla Erazo, MIDDLEWARE SYSTEMS ARCHITECT, DNP [address] [place] [address] 05/16/2025 8:00 AM EDT Office Visit [facility] [place] [address] [facility], [address] [place] [address] Karly Gracia MD [address] [place] [address] 06/07/2025 1:00 PM EDT Office Visit [facility] [address] [place] [address] Tom Iraheta MD [address] [place] [address] documented as of this encounter [...] Routine 01/31/2025 10:22 AM EDT Gross hematuria [place] CYSTO/URETERO/PYELOS C,BX &/OR FULG LESN 01/31/2025 9:32 [...] Comment 01/31/2025 11:41 AM EDT HEALTHCARE LAB Instrument Repair Supervisor ID Abbey Medina 01/31/2025 11:41 AM EDT [facility] Device ID [id number] 01/31/2025 11:41 AM EDT [facility] Specimen Type POC Capillary 01/31/2025 11:41 AM EDT [facility] Blood Capillary blood specimen / Unknown 01/31/2025 11:39 AM EDT 01/31/2025 11:41 AM EDT Ceci Mitchell MD LAB POINT OF CARE TE ST DOCKED DEVICE UNSOLICITED RESULTS Final Result [facility] [address] [place] [address] * [place] Less than 1 Hour Intraoperative (01/31/2025 11:14 AM EDT) Narrative IMAGING - 01/31/2025 11:15 AM EDT Images were obtained for surgical purposes. See Ceci Mitchell's surgical note in the patient's chart for the findings. us Ceci Mitchell MD IMG FLUOROSCOPY PROCEDURES F inal Result Performing Organization Address City/[facility] [[email or web address] Co de Phone Number IMAGING * (ABNORMAL) Fungal Culture, Routine (01/31/2025 10:23 AM EDT) Culture Confluent Growth Maira glabrata(A) 02/08/2025 11:50 AM EDT [facility] Urine Urinary bladder structure / Unknown 01/31/2025 10:23 AM EDT 01/31/2025 11:38 AM EDT Comment:Pre-op diagnosis: Gross hematuria us Ceci Mitchell MD LAB MICROBIOLOGY - GENERAL O RDERABLES Final Result Performing Organization Address [facility] de Phone Number [facility] [address] [place] [address] * Urine Culture (01/31/2025 10:22 AM EDT) Culture No growth at day 1 02/01/2025 8:02 AM EDT [facility] Urine Urinary bladder structure / Unknown 01/31/2025 10:22 AM EDT 01/31/2025 11:38 AM EDT Comment:Pre-op diagnosis: Gross hematuria us Ceci Mitchell MD LAB MICROBIOLOGY - GENERAL O RDERABLES Final Result Performing Organization Address [facility] [[email or web address]] Co la Phone Number [facility] [address] [place] [address] * (ABNORMAL) POCT glucose meter (01/31/2025 8:47 AM EDT) POCT Glucose 135(H) 74 - 99 mg/dL 01/31/2025 8:49 AM EDT [facility] Comment:Accuracy of a glucos e result [...] Comment 01/31/2025 8:49 AM EDT HEALTHCARE LAB Instrument Repair Supervisor ID Khai Jamison 02/01/20 8:49 AM EDT HEALTHCARE LAB Device ID [id number] 01/31/2025 8:49 AM EDT [facility]ALTHCARE LAB Specimen Type POC Capillary 01/31/2025 8:49 AM EDT [facility] Blood Capillary blood specimen / Unknown 01/31/2025 8:47 AM EDT 01/31/2025 8:49 AM EDT us Ceci Mitchell MD LAB POINT OF CARE TE ST DOCKED DEVICE UNSOLICITED RESULTS Final Result [facility] [address] [place] [address] documented in this encounter Visit Diagnoses Diagnosis [...] documented as of this encounter Care Teams Information Technology Security Analyst Relationship Specialty Start Date End Date Vignesh Pickens MD [address] [place] [address] PCP - General 12/31/24 Cayla Erazo APRN, FREDERICK [address] [facility] [address] [place] [address] Nurse Practitioner Urology 12/20/24 documented as of this encounter
--- OUTSIDE RECORDS SUMMARY | 2025-01-31 09:48 | XMS_ITS | Encounter Summary ---
Author Organization Healthcare Address [address] [place] [address] Care Team Providers Care Space Technologist Name Role Phone Cayla Erazo APRN, FREDERICK Unavailable [phone] Vignesh Pickens MD Primary Care Provider [phone] Reason for Visit * Auth/Cert (Routine) Specialty Diagnoses / Procedures Referred By Clara stoner Referred To Contact Diagnoses Gross hematuria Gross hematuria Procedures MI CYSTO/URETERO/PYELOSC,BX &/OR FULG LESN URETEROSCOPY, WITH BIOPSY POSSIBLE STENT PLACEMENTS Ceci Mitchell MD [address] [facility] [address] [place] [address] Phone: tel: fax: PAV A OPERATING ROOM [address] [place] [address] Phone: tel: Referral ID Status Reason Start Date Expiration Date Visits Re quested Visits Authorized [id number] 1 1 Encounter Details Date Type Department Care Team (Late st Contact Info) Description 01/31/2025 9:48 AM EDT Anesthesia Event [facility] A OPERATING ROOM [address] [place] [address] Nj Sears MD [address] [place] [address] Anesthesia Record Procedure Summary Procedure [...] Hand; Site Prep: Chlorhexidine ; Local Anesth: [place]; Technique: Anatomical landmarks; Inserted by: james orosco [...] No change to dentition. ; Placed by: FORMING OPERATOR; Removal Date: 01/31/25; Removal Time: 1122 [...] any time in the past 12 m [facility], were you homeless or living in [...] drink first t rodríguez in the morning (EYE-SECURITY AND COMPLIANCE ANALYST) to steady your nerves or to get rid of a hangover? 0 08/15/2024 CAGE Questionnaire Score 0 024 Utilities Answer Date Recorded In the past 12 months has e [employer], gas, oil, or water [employer] threatened to shut off services in your [...] and Staff Patient location during procedure: OR FORMING OPERATOR: Migue Seay CRNA Performed: FORMING OPERATOR Patient Condition Indications for airway management: [...] WITH BIOPSY POSSIBLE STENT PLACEMENTS (Bilateral) Location: [address] / [place] Surgeons: Ceci Mitchell MD Department of [...] were no vitals filed for this visit. [place] body weight: 54.7 kg (120 lb 9.5 [...] Abnormal Ventricular Rate 77 Atrial Rate 77 [place] Interval 180 QRSD Interval 124 QT Interval 416 QTC Interval 470 P [place] 23 R [place] 268 T Wave [place] 67 Diagnosis Normal sinus rhythm Diagnosis Right [...] valvular disease. PFTs No results found for: [id number] , [id number] , [id number] , FVCPRED Relevant Problems Cardio (+) Asymptomatic bilateral carotid artery stenosis (+) Atrial premature depolarization (+) CAD (coronary artery disease), [place] coronary artery (+) Deep venous thrombosis of lower extremity (+) Dyspnea, unspecified (+) Essential (primary) hypertension (+) Old myocardial infarction (+) Other specified cardiac arrhythmias (+) PVD (peripheral vascular disease) ([facility]) (+) Peripheral vascular disease, unspecified ([facility]) (+) Unspecified right bundle-branch block (+) Venous embolism Endo (+) Controlled diabetes mellitus type II without complication (+) Nontoxic single thyroid nodule (+) Type 2 diabetes mellitus with diabetic chronic kidney disease ([facility]) (+) Type 2 diabetes mellitus without complication GI (+) Fecal impaction ([facility]) (+) GERD without esophagitis (+) Morbid (severe) obesity due to excess calories ([facility]) /Renal (+) Acute kidney injury superimposed on CKD ([facility]) (+) Calculus of kidney (+) Chronic kidney disease, stage 3a ([facility]) (+) Cyst of kidney, acquired (+) Hydronephrosis with renal and ureteral calculous obstruction (+) Hypertensive chronic kidney disease with stage 1 through stage 4 chronic kidney disease, or unspecified chronic kidney disease (+) Hypertensive heart and chronic kidney disease with heart failure and stage 1 through stage 4 chronic kidney disease, or unspecified chronic kidney disease ([facility]) (+) Kidney infection (+) Pyelonephritis (+) Recurrent UTI (+) Stage 3 chronic kidney disease ([facility]) (+) Tubulo-interstitial nephritis, not specified as acute or chronic (+) Type 2 diabetes mellitus with diabetic chronic kidney disease ([facility]) (+) Unspecified hydronephrosis Neuro/Psych (+) Headache, unspecified (+) Hx of AKA (above knee amputation), left ([facility]) (+) Stroke ([facility]) Pulmonary (+) COPD (chronic obstructive pulmonary disease) ([facility]) (+) Mixed simple and mucopurulent chronic bronchitis ([facility]) Other (+) Arthritis Anesthesia Evaluation Clinical information reviewed: NPO Status Physical Exam Airway Mallampati: III Mouth opening: normal TM distance: <3 FB Neck ROM: full Cardiovascular Rhythm: regular Rate: normal Dental Pulmonary Comments: Symmetric chest rise, moving air bilat, no increased wob Neurological Skin Musculoskeletal Extremities Anesthesia Plan ASA 3 Plan was reviewed with: FORMING OPERATOR Anesthesia technique(s) discussed with the patient/family: [...] Date Anxiety Breast cancer Cerebral infarction, unspecified ([facility]) CVA (cerebral infarction) COPD (chronic obstructive pulmonary disease) ([facility]) Depression Fibromyalgia History of falling [...] BREAST SURGERY N/A Breast Surgery Reconstruction from [facility] BREAST SURGERY N/A Breast Surgery from [facility] CHOLECYSTECTOMY N/A Cholecystotomy from [facility] KIDNEY SURGERY N/A Kidney Surgery from [facility] KNEE SURGERY N/A Knee Surgery from [facility] MASTECTOMY N/A Breast Surgery Mastectomy from [facility] SHOULDER SURGERY Right Shoulder Surgery Right from [facility] [3] Allergies Allergen Reactions Sulfa Drugs Anaphylaxis Ultram [Tramadol] Swelling lips swell Hydrocodone Unknown - Patient states they do not know rxn details [facility] is unaware of what reaction. Pedi-Pre Tape [place] [Wound Dressing Adhesive] Rash Wellbutrin [Bupropion] Rash [...] Office Visit [facility] [address] [place] [address] Doug Chapman MD [id number] [place] [address] 03/27/2025 10:30 AM EDT Appointment [facility] Ultrasound [address] [place] [address] 03/27/2025 11:50 AM EDT Clinical Support Medical Office Building Lab [address] [place] [address] 03/27/2025 1:00 PM EDT Office Visit Medical Office Building Urology [address] [facility], [address] [place] [address] Cayla Erazo, FACILITIES PROJECT MANAGER, DNP [id number] [place] [address] 05/16/2025 8:00 AM EDT Office Visit [facility] [place] [address] [facility], [address] [place] [address] Karly Gracia MD [address] [place] [address] 06/07/2025 1:00 PM EDT Office Visit [place] [id number] [facility] [address] [place] [address] Tom Iraheta MD [address] [place] [address] documented as of this encounter Goals Goal Patient Goal Type Associated Problems Recent Progress Patient-Stated? Author Autogenerat ed Goal Care Plan Autogenerated Problem No Eugenia Hodge documented as of this encounter Procedures Procedure Name Priority Date/Time Associated Diagnosis Comments PB ANESTHESIA PLACEHOLDER Routine 01/31/2025 9:58 AM EDT MI AN ELECTIVE ENDOTRACHEAL AIRWAY Routine 01/31/2025 9:58 AM EDT documented in this encounter Results * MI AN ELECTIVE ENDOTRACHEAL AIRWAY, PB ANESTHESIA PLACEHOLDER (01/31/2025 9:58 AM EDT) Narrative Migue Seay CRNA - 01/31/2025 9:58 AM EDT Migue Seay CRNA 01/31/2025 10:45 AM Airway Date/Time: 01/31/2025 9:58 AM Reason: elective Airway not difficult General Information and Staff Patient location during procedure: OR FORMING OPERATOR: Migue Seay CRNA Performed: LORETTA Patient [...] documented as of this encounter Care Teams Space Technologist Relationship Specialty Start Date End Date Vignesh Pickens MD [address] [facility] [place] [address] PCP - General 12/31/24 Cayla Erazo, FACILITIES PROJECT MANAGER, DNP [address] [facility] [address] [place] [address] Nurse Practitioner Urology 12/20/24 documented as of this encounter
[2025-02-22] VITALS (17 sets, daily range): BP systolic 96–130; BP diastolic 59–80; PULSE 76–85; RESP 9–18; TEMP 36.6–36.9; O2SAT 95–100; BMI 31.7
--- OUTSIDE RECORDS SUMMARY | 2025-02-22 11:01 | XMS_ITS | Clinical Summary ---
Author Organization [employer] ([place], [place], [place], [place]) Address [address] [place] [address] Care Team Providers Care General Office Clerk Name Role Phone [facility], Provider Not In The System MD [...] Do you speak a language other than Central [place] at ho me? No 12/09/2023 Do you [...] A1C 11.7 % 11/25/2023 5:31 PM EDT [facility] Comment: Hemoglobin A1C levels are related to mean glucose during the preceding 2-3 months. Less than 7% demonstrates glycemic control in diabetic patients. Hemoglobin AlC % Suggested Diagnosis > or = 6.5 Diabetic 5.7 - 6.4 Prediabetic <5.7 Non-diabetic eAVG Glucose 289.09 mg/dL 11/25/2023 5:31 PM EDT [facility] Blood Venipuncture / Unknown 11/25/2023 11:24 AM EDT 11/25/2023 1:46 PM EDT us Radha Ram MD LAB BLOOD ORDERABLES Fi nal Result [facility] [address] [phone] from Last 3 Months or Most Recently Relevant to Health Maintenance Insurance [facility] [place] [id number] MEDICARE PART A B [place] Advance Directives For more information, please contact: [phone] * Full Code (Latest Code Status on [...] Name Relationship Healthcare Agent Relationshi p Communication [place] Dante Sister First Alternate Healthcare Decision-Maker Care Teams General Office Clerk Relationship Specialty Start Date End Date [facility], Provider Not In The System, [place] [address] PCP - General 10/05/23
--- OUTSIDE RECORDS SUMMARY | 2025-02-22 11:01 | XMS_ITS | Encounter Summary ---
Author Organization [facility] Address [address] [place] [address] Care Team Providers Care Corporate Training Manager Name Role Phone Cayla Erazo APRN, DNP Unavailable [phone] Vignesh Pickens MD Primary Care Provider [phone] Encounter Details Date Type Department Care Team [...] time in the past 12 m [facility], were you homeless or living in [...] drink first t rodríguez in the morning (EYE-GLOBAL HEAD ADVERTISER SOLUTIONS) to steady your nerves or to get [...] Office Visit [facility] [address] 2nd [place] [address] Doug Chapman MD [address] [facility] [address] [place] [address] 03/27/2025 10:30 AM EDT Appointment [facility] Ultrasound [address] 2nd [place] [address] 03/27/2025 11:50 AM EDT Clinical Support Medical Office Building Lab [address] [place] [address] 03/27/2025 1:00 PM EDT Office Visit Medical Office Building Urology [address] [facility], [address] [place] [address] Cayla Erazo, CEMENT [place] [address], DNP [id number] [place] [address] 05/16/2025 8:00 AM EDT Office Visit [facility] [place] [address] [facility], [address] [place] [address] Karly Gracia MD [address] [place] [address] 06/07/2025 1:00 PM EDT Office Visit [facility] [address] [place] [address] Tom Iraheta MD [address] [place] [address] documented as of this encounter [...] documented as of this encounter Care Teams Corporate Training Manager Relationship Specialty Start Date End Date Vignesh Pickens MD [address] [place] [address] PCP - General 12/31/24 Cayla Erazo APRN, DNP [address] [place] [address] Nurse Practitioner Urology 12/20/24 documented as of this encounter
--- OUTSIDE RECORDS SUMMARY | 2025-02-22 11:01 | XMS_ITS | Encounter Summary ---
Author Organization [facility] Address [address] [place] [address] Care Team Providers Care Tool Grinding Technician Name Role Phone Cayla Erazo APRN, DNP Unavailable Vignesh Pickens MD Primary Care Provider [phone] Encounter Details Date Type Department Care Team (Late st Contact Info) Description 01/16/2025 Telephone [facility] [address] 2nd [place] [address] Ceci Mitchell MD [address] [place] [address] Social History Tobacco Use Types [...] time in the past 12 m [facility], were you homeless or living in [...] first t rodríguez in the morning (EYE-TECHNICAL SOLUTIONS CONSULTANT) to steady your nerves or to [...] - 01/16/2025 10:36 AM EDT Spoke with [facility] , scheduled 01/31 surgery with 8am arrival time, facility is aware of anesthesia preop screening call and arrival time call prior to surgery. Urine culture orderto faxed to facility to be completed divya documented in this encounter Plan of Treatment Upcoming Encounters Date Type Department Care Team (Late st Contact Info) Description 03/07/2025 10:00 AM EDT Office Visit [facility]rology [address] [place] [address] Doug Chapman MD [address] [facility] [place] [address] 03/27/2025 10:30 AM EDT Appointment [facility] Ultrasound [address] 2nd [place] [address] 03/27/2025 11:50 AM EDT Clinical Support Medical Office Building Lab [address] [place] [address] 03/27/2025 1:00 PM EDT Office Visit Medical Office Building Urology [address] [facility], [address] [place] [address] Cayla Erazo APRN, FREDERICK [address] [facility] [address] [place] [address] 05/16/2025 8:00 AM EDT Office Visit [facility] [place] [address] [facility], [address] [place] [address] Karly Gracia MD [address] [place] [address] 06/07/2025 1:00 PM EDT Office Visit [facility] [address] [place] [address] Tom Iraheta MD [address] [place] [address] documented as of this encounter [...] documented as of this encounter Care Teams Tool Grinding Technician Relationship Specialty Start Date End Date Vignesh Pickens MD [address] [place] [address] PCP - General 12/31/24 Cayla Erazo APRN, DNP [address] [place] [address] Nurse Practitioner Urology 12/20/24 documented as of this encounter
--- OUTSIDE RECORDS SUMMARY | 2025-02-22 11:01 | XMS_ITS | Encounter Summary ---
Author Organization [facility] Address [address] [place] [address] Care Team Providers Care Railways Assistant Name Role Phone Cayla Erazo APRN, DNP Unavailable [phone] Vignesh Pickens MD Primary Care Provider [phone] Encounter Details Date Type Department Care Team (Late st Contact Info) Description 01/17/2025 Telephone [facility] [address] [place] [address] Ceci Mitchell MD [address] [place] [address] Social History Tobacco Use Types [...] any time in the past 12 m [facility], were you homeless or living in [...] drink first t rodríguez in the morning (EYE-AIRCRAFT GENERAL REPAIR MECHANIC) to steady your nerves or to [...] Office Visit [facility] [address] [place] [address] Doug Chapman MD [id number] [place] [address] 03/27/2025 10:30 AM EDT Appointment [facility] Ultrasound [address], 2nd [place] [address] 03/27/2025 11:50 AM EDT Clinical Support Medical Office Building Lab [address] [place] [address] 03/27/2025 1:00 PM EDT Office Visit Medical Office Building Urology [address] [facility], [address] [place] [address] Cayla Erazo, DIVERSIFIED CROPS SUPERVISOR, DNP [id number] [place] [address] 05/16/2025 8:00 AM EDT Office Visit [facility] [place] [address] [facility], [address] [place] [address] Karly Gracia MD [address] [place] [address] 06/07/2025 1:00 PM EDT Office Visit [facility] [address] [place] [address] Tom Iraheta MD [address] [place] [address] Scheduled Orders Name Type Priority Associated Diagnoses [...] documented as of this encounter Care Teams Railways Assistant Relationship Specialty Start Date End Date Vignesh Pickens MD [address] [place] [address] PCP - General 12/31/24 Cayla Erazo APRN, FREDERICK [address] [place] [address] Nurse Practitioner Urology 12/20/24 documented as of this encounter
--- OUTSIDE RECORDS SUMMARY | 2025-02-22 11:01 | XMS_ITS | Encounter Summary ---
Author Organization [facility] Address [address] [place] [address] Care Team Providers Care Process Chemist Name Role Phone Cayla Erazo APRN, DNP Unavailable [phone] Vignesh Pickens MD Primary Care Provider [phone] Encounter Details Date Type Department Care Team [...] drink first t rodríguez in the morning (EYE-WOUND CARE PHYSICIAN) to steady your nerves or to get [...] [address] [place] [address] Doug Chapman MD [address] [facility] [address] [place] [address] 03/27/2025 10:30 AM EDT Appointment [facility] Ultrasound [address] 2nd [place] [address] 03/27/2025 11:50 AM EDT Clinical Support Medical Office Building Lab [address] [place] [address] 03/27/2025 1:00 PM EDT Office Visit Medical Office Building Urology [address] [facility], [address] [place] [address] Cayla Erazo, AUTOMOTIVE PARTS MANAGER, DNP [id number] [place] [address] 05/16/2025 8:00 AM EDT Office Visit [facility] [place] [address] [facility], [address] [place] [address] Karly Gracia MD [address] [place] [address] 06/07/2025 1:00 PM EDT Office Visit [facility] [address] [place] [address] Tom Iraheta MD [address] [place] [address] documented as of this encounter [...] documented as of this encounter Care Teams Process Chemist Relationship Specialty Start Date End Date Vignesh Pickens MD [address] [place] [address] PCP - General 12/31/24 Cayla Erazo APRN, DNP [address] [place] [address] Nurse Practitioner Urology 12/20/24 documented as of this encounter
--- OUTSIDE RECORDS SUMMARY | 2025-02-22 11:02 | XMS_ITS | Referral Summary ---
Author Organization [employer] ([place], [place], [place]) Address [address] [place] [address] Care Team Providers Care Civil Division Commander Deputy Sheriff Name Role Phone [facility], Provider Not In The System MD [...] Do you speak a language other than Nigerian at ho me? No 12/09/2023 Do you [...] A1C 11.7 % 11/25/2023 5:31 PM EDT [facility] Comment: Hemoglobin A1C levels are related to mean glucose during the preceding 2-3 months. Less than 7% demonstrates glycemic control in diabetic patients. Hemoglobin AlC % Suggested Diagnosis > or = 6.5 Diabetic 5.7 - 6.4 Prediabetic <5.7 Non-diabetic eAVG Glucose 289.09 mg/dL 11/25/2023 5:31 PM EDT [facility] Blood Venipuncture / Unknown 11/25/2023 11:24 AM EDT 11/25/2023 1:46 PM EDT Radha Ram MD LAB BLOOD ORDERABLES Fi nal Result [facility] [address] [place] [address], [facility] [place] [phone] from Last 3 Months or Most Recently Relevant to Health Maintenance Insurance MEDICARE PART A B MEDICAID OF [place] Advance Directives For more information, please contact: [phone] * Full Code (Latest Code Status on [...] Sister First Alternate Healthcare Decision-Maker Care Teams Civil Division Commander Deputy Sheriff Relationship Specialty Start Date End Date [facility], Provider Not In The System, [place] [address] PCP - General 10/05/23
--- OUTSIDE RECORDS SUMMARY | 2025-02-22 11:02 | XMS_ITS | Encounter Summary ---
Author Organization [facility] Address [address] [place] [address] Care Team Providers Care Harvest Worker Fruit Name Role Phone Cayla Erazo APRN, DNP Unavailable [phone] Vignesh Pickens MD Primary Care Provider [phone] Encounter Details Date Type Department Care Team [...] drink first t rodríguez in the morning (EYE-CALCULATION REVIEWER) to steady your nerves or to get [...] Description 03/07/2025 10:00 AM EDT Office Visit [place] [facility] [address], [address] [place] [address] Doug Chapman MD [address] [facility] [address] [place] [address] 03/27/2025 10:30 AM EDT Appointment [facility] Ultrasound [address], 2nd [place] [address] 03/27/2025 11:50 AM EDT Clinical Support Medical Office Building Lab [address] [place] [address] 03/27/2025 1:00 PM EDT Office Visit Medical Office Building Urology [address] [facility], [address] [place] [address] Cayla Erazo APRN, FREDERICK [address] [place] [address] 05/16/2025 8:00 AM EDT Office Visit [facility] [address] [facility], [address] [place] [address] Karly Gracia MD [address] [place] [address] 06/07/2025 1:00 PM EDT Office Visit [facility] [address] [place] [address] Tom Iraheta MD [address] [place] [address] documented as of this encounter [...] documented as of this encounter Care Teams Harvest Worker Fruit Relationship Specialty Start Date End Date Vignesh Pickens MD [address] [place] [id number] PCP - General 12/31/24 Cayla Erazo APRN, FREDERICK [address] [place] [address] Nurse Practitioner Urology 12/20/24 documented as of this encounter
--- OUTSIDE RECORDS SUMMARY | 2025-02-22 11:02 | XMS_ITS | Clinical Summary ---
Author Organization [facility] Address [address] [place] [address] Care Team Providers Care Professor Of Art Name Role Phone Cayla Erazo APRN, DNP Unavailable [phone] Vignesh Pickens MD Primary Care Provider [phone] Allergies Active Allergy Reactions Criticality Noted Date [...] ureteral calculous obstruction 08/17/2024 Kidney infection 08/16/2024 [place] coma scale total sco re 13-15, unspecified [...] without esophagitis 03/28/2017 CAD (coronary artery disease), kiowa tribe coronary a rtery 03/28/2017 Controlled diabetes mellitus [...] Anesthesia Event [facility] [address] [place] [address] Nj Sears MD 01/31/2025 8:55 AM EDT - 01/31/2025 10:10 AM EDT Surgery [facility] [address] [place] [address] Ceci Mitchell MD URETEROSCOPY,CYSTOSCO PY, RETROGRADE PYELOGRAM, BILATERAL STENT PLACEMENT [88590 (CPT )] 01/31/2025 8:03 AM EDT - 01/31/2025 1:39 PM EDT Hospital Encounter [facility] [address] [place] [address] Ceci Mitchell MD Urinary retention (Primary Dx); Gross hematuria Discharge Disposition: Home or Self Care 01/31/2025 Travel 01/24/2025 2:00 PM EDT Pre-Admission Testing [facility] [address], [address] [place] [address] 01/24/2025 Travel 01/23/2025 Telephone [facility] [address], [address]nd [place] [address] Ceci Mitchell MD 01/17/2025 Telephone [facility] [address], 2nd [place] [address] Ceci Mitchell MD 01/16/2025 Telephone [facility] [address], [address]nd [place] [address] Ceci Mitchell MD 01/03/2025 2:15 PM EDT - 01/03/2025 11:59 PM EDT Hospital Encounter [facility] [address], [address]nd [place] [address] Gross hematuria Discharge Disposition: Home or Self Care 01/03/2025 Travel 12/31/2024 4:00 PM EDT Office Visit [facility] [address] [facility] 5th Floor [address] [place] [address] Bert Canela MD Asymptomatic bilateral carotid artery stenosis (Primary Dx); PVD (peripheral vascular disease) ([facility]); Hx of AKA (above knee amputation), left ([facility]); History of stroke; Type 2 diabetes mellitus without complication, unspecified whether rat exterminator insulin use 12/31/2024 2:01 PM EDT - 12/31/2024 11:59 PM EDT Hospital Encounter [facility] [address] [facility] 5th Floor [address] [place] [address] Coronary artery disease involving kiowa tribe heart without angina pectoris, unspecified vessel or lesion type; S/P AKA (above knee amputation) bilateral ([facility]); Acute left arterial ischemic stroke, ICA (internal carotid artery) ([facility]) Discharge Disposition: Home or Self Care 12/31/2024 2:01 PM EDT - 12/31/2024 11:59 PM EDT Hospital Encounter [facility] [address] [facility] 5th Floor [address], [address] [place] [address] S/P AKA (above knee amputation) bilateral ([facility]); Encounter for surgical aftercare following surgery on the circulatory system Discharge Disposition: Home or Self Care 12/31/2024 Travel 12/20/2024 9:20 AM EDT Office Visit [facility] [address], [address]nd [place] [address] Cayla Erazo, COUNTY NURSE, DNP Recurrent UTI (Primary Dx); Hydronephrosis, unspecified hydronephrosis type; Urinary retention; Post-menopausal atrophic vaginitis; Gross hematuria 12/20/2024 Orders Only External Location [address] [place] [address] Provider, External 12/20/2024 Travel 12/04/2024 12:05 PM EDT - 12/04/2024 11:59 PM EDT Hospital Encounter Medical Office Building Cardiac Diagnostic Testing Medical Office Building Echo Lab [address] [facility], [address] [place] [address] Coronary artery disease involving kiowa tribe heart without angina pectoris, unspecified vessel or lesion type Discharge Disposition: Home or Self Care 12/04/2024 Travel 11/27/2024 2:25 PM EDT - 11/27/2024 11:59 PM EDT Hospital Encounter [facility] [address] [place] [address] Hydronephrosis, unspecified hydronephrosis type; Urinary retention Discharge Disposition: Home or Self Care 11/27/2024 Travel from Last 3 Months Immunizations Immunization Administration Dates Next Due Influenza, injectable, quadrivalent, preservativ e free 05/11/2016 [facility] COVID-19 Vaccine (Purple Cap) 12 + 09/30/2020,09/09/2020 [...] drink first t rodríguez in the morning (EYE-EQUIPMENT OPERATOR INTERMODAL YARD) to steady your nerves or to get rid of a hangover? 0 08/15/2024 CAGE Questionnaire Score 0 024 Utilities Answer Date Recorded In the past 12 months has th [employer], gas, oil, or water [employer] threatened to shut off services in your [...] [address], [address] [place] [address] Doug Chapman MD [address] [place] [address] 03/27/2025 10:30 AM EDT Appointment [facility] Ultrasound [address], 2nd [place] [address] 03/27/2025 11:50 AM EDT Clinical Support Medical Office Building Lab [address] [place] [address] 03/27/2025 1:00 PM EDT Office Visit Medical Office Building Urology [address] [facility], [address] [place] [address] Cayla Erazo, COUNTY NURSE, DNP [address] [facility] [address] [place] [address] 05/16/2025 8:00 AM EDT Office Visit [facility] [place] [address] [facility], [address] [place] [address] Karly Gracia MD [address] [place] [address] 06/07/2025 1:00 PM EDT Office Visit [facility] [address] [place] [address] Tom Iraheta MD [address] [place] [address] Health Maintenance Due Date Last [...] - Risk 60-74 years 1-dose series) 2019 [id number] Vaccine (3 - Pfizer risk series) 10/28/2020 [...] Eugenia [employer] Implanted Type Area Locomotive Engineer Diesel Device Identifier Shelf Expiration Date Model / Serial / Lot Stent Ureteral Tria Firm Monofilament 7f/24cm - [id number] Implanted:Qty: 1 on 01/31/2025 by Ceci Mitchell MD at [facility] Right: Kidney Whitepages-[id number] 06/14/2027 [id number] / / [id number] Stent Ureteral Tria Firm Monofilament 7f/24cm - [id number] Implanted:Qty: 1 on 01/31/2025 by Ceci Mitchell MD at [facility] Left: Kidney Whitepages-1184 49 07/02/2027 [id number] / / [id number] Procedures Procedure Name Priority Date/Time Associated Diagnosis Comments POCT GLUCOSE METER UNSOLICITED RESULTS Routine 01/31/2025 11:39 AM EDT FL LESS THAN 1 HOUR (NON-REPORTABLE) Routine 01/31/2025 11:14 AM EDT FUNGAL CULTURE, ROUTINE Routine 01/31/2025 10:23 AM EDT Gross hematuria URINE CULTURE Routine 01/31/2025 10:22 AM EDT Gross hematuria PB ANESTHESIA PLACEHOLDER Routine 01/31/2025 9:58 AM EDT MT AN ELECTIVE ENDOTRACHEAL AIRWAY Routine 01/31/2025 9:58 AM EDT MT CYSTO/URETERO/PYELOSC, BX &/OR FULG LESN 01/31/2025 9:32 [...] 2:27 PM EDT Coronary artery disease involving kiowa tribe heart without angina pectoris, unspecified vessel or [...] EDT Hydronephrosis, unspecified hydronephrosis type Urinary retention MT COMPLEX CYSTOMETROGRAM W/VOID PRESS&URETHRAL PROFILE Routine 12/20/2024 10:28 AM EDT Hydronephrosis, unspecified hydronephrosis type Urinary retention INJECTION FOR BLADDER XRAY WITHOUT VOIDING Routine 12/20/2024 10:28 AM EDT Hydronephrosis, unspecified hydronephrosis type Urinary retention POC ULTRASOUND 12/20/2024 ECHO, ADULT TRANSTHORACIC COMPLETE Routine 12/04/2024 1:26 PM EDT Coronary artery disease involving kiowa tribe heart without angina pectoris, unspecified vessel or [...] 01/31/2025 11:41 AM EDT [facility] Necktie Maker ID Abbey Medina 01/31/2025 11:41 AM EDT HEALTHCARE LAB Device ID [id number] 01/31/2025 11:41 AM EDT HEALTHCARE LAB Specimen Type POC Capillary 01/31/2025 11:41 AM EDT HEALTHCARE LAB Blood Capillary blood specimen / Unknown 01/31/2025 11:39 AM EDT 01/31/2025 11:41 AM EDT Ceci Mitchell MD LAB POINT OF CARE TE ST DOCKED DEVICE UNSOLICITED RESULTS Final Result Performing Organization Address City/[facility]/ZIP Co de Phone Number [facility] [address] [place], [place] [id number] * FL Less than 1 Hour Intraoperative [...] Growth Maira glabrata(A) 02/08/2025 11:50 AM EDT [facility] Urine Urinary bladder structure / Unknown 01/31/2025 10:23 AM EDT 01/31/2025 11:38 AM EDT Comment:Pre-op diagnosis: Gross hematuria Ceci Mitchell MD LAB MICROBIOLOGY - GENERAL O RDERABLES Final Result Performing Organization Address [facility] [place] [address] * Urine Culture (01/31/2025 10:22 AM EDT) Only the most recent of2 resultswithin the time period is included. Culture No growth at day 1 02/01/2025 8:02 AM EDT [facility] Urine Urinary bladder structure / Unknown 01/31/2025 10:22 AM EDT 01/31/2025 11:38 AM EDT Comment:Pre-op diagnosis: Gross hematuria Ceci Mitchell MD LAB MICROBIOLOGY - GENERAL O RDERABLES Final Result Performing Organization Address [facility] [place] [address] * MT AN ELECTIVE ENDOTRACHEAL AIRWAY, PB ANESTHESIA PLACEHOLDER (01/31/2025 9:58 AM EDT) Narrative Migue Seay CRNA - 01/31/2025 9:58 AM EDT Migue Seay CRNA 01/31/2025 10:45 AM Airway Date/Time: 01/31/2025 9:58 AM Reason: elective Airway not difficult General Information and Staff Patient location during procedure: OR WATER FILTER CLEANER: Migue Seay CRNA Performed: LORETTA Patient Condition [...] following split bolus administration of IV contrast, [id number], 150 mL. Reformatted images in the coronal [...] Per this written report. Drafted by Jin oMrin MD on 01/03/2025 3:24 PM Final report signed by Jin Morin MD on 01/03/2025 3:33 PM us Cayla Erzao COUNTY NURSE, DNP IMG CT PROCEDURES Final Result * [...] are demonstrated at the levels of the HEALTH PROGRAM DIRECTOR, BINDER AND BOX BUILDER and DPA. Segmental pressures are within normal limits with a BINDER AND BOX BUILDER JASEN of 0.98 (138 mmHg) and a DPA JASEN of 1.28 (181 mmHg). Digit pressures are 115 mmHg. Left: AKA is noted. Multiphasic waveforms are demonstrated at the level of the HEALTH PROGRAM DIRECTOR. 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 COMPARISON: None. FINDINGS: Right: Multiphasic waveforms are demonstrated at the levels of the HEALTH PROGRAM DIRECTOR,BINDER AND BOX BUILDER and DPA. Segmental pressures are within normal limits with a BINDER AND BOX BUILDER ABIof 0.98 (138 mmHg) and a DPA JASEN of 1.28 (181 mmHg). Digit pressures [id number] mmHg. Left: AKA is noted. Multiphasic waveforms are demonstrated at the level ofthe HEALTH PROGRAM DIRECTOR. IMPRESSION: Right: Normal study; No evidence of [...] Parkinson MD on 01/01/2025 7:09 AM Karly Garcia MD CV VASCULAR PROCEDURES Final Result * [...] MD on 01/01/2025 7:08 AM us Karly Graica MD CV VASCULAR PROCEDURES Final Result * (ABNORMAL) Basic Metabolic Panel, Plasma (12/20/2024 11:54 AM EDT) Glucose, Plasma 226(H) 74 - 99 mg/dL 12/20/2024 1:19 PM EDT [facility] BUN, Plasma 34(H) 8 - 23 mg/dL 12/20/2024 1:19 PM EDT [facility] Creatinine, Plasma 1.82(H) 0.60 - 1.10 mg/dL 12/20/2024 1:19 PM EDT [facility] BUN/Creatinine Ratio 19 12/20/2024 1:19 PM EDT [facility] Sodium, Plasma 134(L) 136 - 145 mmol/L 12/20/2024 1:19 PM EDT [facility] Potassium, Plasma 4.8 3.6 - 4.9 mmol/L 12/20/2024 1:19 PM EDT [facility] Chloride, Plasma 94(L) 97 - 107 mmol/L 12/20/2024 1:19 PM EDT [facility] CO2, Plasma 28 22 - 29 mmol/L 12/20/2024 1:19 PM EDT [facility] Anion Gap 12 6 - 16 mmol/L 12/20/2024 1:19 PM EDT [facility] Total Calcium, Plasma 10.0 8.9 - 10.2 mg/dL 12/20/2024 1:19 PM EDT [facility] eGFRcr 30.5 mL/min/1.7 3m*2 12/20/2024 1:19 PM EDT [facility] Comment:Reported eGFRcr in m L/min/1.73m2 is based the CKD-EPI 2020 equation that does not use a race coefficient. Blood Venous blood specimen / Unknown Venipuncture / Unknown 12/20/2024 11:54 AM EDT 12/20/2024 11:55 AM EDT us Cayla Erazo APRN, DNP LAB BLOOD ORDERABLES [facility] al Result [facility] [address] [place] [address] * INJECTION FOR BLADDER XRAY WITHOUT VOIDING, MT COMPLEX CYSTOMETROGRAM W/VOID PRESS&URETHRAL PROFILE, UROLOGY UDS WITH BASE PERFORMABLE CHARGES (12/20/2024 10:28 AM EDT) Narrative Cayla Erazo APRN, DNP - 12/20/2024 10:28 AM EDT Cayla Erazo APRN, DNP 01/04/2025 2:40 PM UDS Date/Time: 12/20/2024 10:28 AM Performed by: Cayla Erazo APRN, DNP Authorized by: Cayla Erazo APRN, DNP [place] Protocol: Time out called at: 12/20/2024 10:28 [...] mean PAP 39 mmHg CARLOS ISCV PA MT(ACCEL) 37.4 mmHg CARLOS ISCV PA acc slope [...] is no recent study available for direct euoj-di-qgot comparison. us Karly Gracia MD CV ECHO [...] on 11/27/2024 3:49 PM us Cayla Erazo COUNTY NURSE, DNP IMG US PROCEDURES Final Result * Hepatitis C Antibody - ED (08/15/2024 5:35 AM EST) Hepatitis C Antibody Negative Negative 08/15/2024 7:08 AM EST [facility] Blood Venous blood specimen / Unknown Venipuncture / Unknown 08/15/2024 5:35 AM EST 08/15/2024 6:06 AM EST us Marcy Zhong MD LAB BLOOD ORDERABLES Final Resu lt [facility] [address] [place] [address] * (ABNORMAL) Hemoglobin A1c (03/05/2014 7:31 PM [...] Narrative SUNQUEST - 04/10/2013 3:59 PM EDT [facility] MR #: [id number] [facility] YADIRA [place], [place] [address] 1960 (Age: 52) FW Collect Date: 04/10/2013 00:00 Receipt Date: 04/10/2013 14:23 Page 1 DEPARTMENT OF PATHOLOGY AND LABORATORY MEDICINE CYTOPATHOLOGY REPORT Email: [email or web address] [phone] ATTENDING MD/Practitioner: Kimmie Aguilera MD Service: BCC [...] w/ in-situ carcinoma (+) for ER / MT BCC / FNA performed by: Dr. Jonatan [...] RECEPTOR POSITIVE STATUS (ER POSITIVE) F: A; 43902 ASP INTER, [address], [address]75 SNOMED CODES: A; O04740 P99107 [id number] Y08850 Y04964 OF5823 P1149 [id number] A resident has participated in this service. A pathologist has performed and is responsible for the reported pathologic evaluation. 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 Yes Care Teams Professor Of Art Relationship Specialty Start Date End Date Vignesh Pickens MD [address] [place] [address] PCP - General 12/31/24 Cayla Erazo APRN, DNP [address] [place] [address] Nurse Practitioner Urology 12/20/24
--- OUTSIDE RECORDS SUMMARY | 2025-02-22 11:02 | XMS_ITS | Encounter Summary ---
Author Organization [facility] Address [address] [place] [address] Care Team Providers Care Transitional Kindergarten Teacher Name Role Phone Cayla Erazo APRN, DNP Unavailable [phone] Vignesh Pickens MD Primary Care Provider [phone] Encounter Details Date Type Department Care Team (Late st Contact Info) Description 01/23/2025 Telephone [facility] [address], [address] [place] [address] Ceci Mitchell MD [address] [place] [address] Social History Tobacco Use Types [...] first t rodríguez in the morning (EYE-AIRCRAFT CHARTER DISPATCHER) to steady your nerves or to get [...] Description 03/07/2025 10:00 AM EDT Office Visit [facility] Urology [address] [place] [address] Doug Chapman MD [id number] [place] [address] 03/27/2025 10:30 AM EDT Appointment [facility] Ultrasound [address] 2nd [place] [address] 03/27/2025 11:50 AM EDT Clinical Support Medical Office Building Lab [address] [place] [address] 03/27/2025 1:00 PM EDT Office Visit Medical Office Building Urology [address] [facility], [address] [place] [address] Cayla Erazo, CONE TREATER, DNP [address] [facility] [address] [place] [address] 05/16/2025 8:00 AM EDT Office Visit [facility] [place] [address] [facility], [address] [place] [address] Karly Gracia MD [address] [place] [address] 06/07/2025 1:00 PM EDT Office Visit [facility] [address] [place] [address] Tom Iraheta MD [address] [place] [address] documented as of this encounter [...] documented as of this encounter Care Teams Transitional Kindergarten Teacher Relationship Specialty Start Date End Date Vignesh Pickens MD [address] [place] [address] PCP - General 12/31/24 Cayla Erazo APRN, DNP [address] [place] [address] Nurse Practitioner Urology 12/20/24 documented as of this encounter
--- OUTSIDE RECORDS SUMMARY | 2025-02-22 11:02 | XMS_ITS | Clinical Summary ---
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) 47947951 (SNOMED CT) 10/25 Active 10/25 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 Benign hypertension Presence of left artificial knee joint Z96.652 (ICD-10-CM ) 10/25 Active 10/25 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 Presence of left artificial knee joint Hx of MRSA infection 782991768 (SNOMED CT) 10/25 Active 10/25 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 H/O: infectious disease Hx of malignant neoplasm of breast 851484026 (SNOMED CT) 03/02 Resolved 03/02 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 History of malignant neoplasm of breast Cellulitis of left leg 949358592 (SNOMED CT) 03/02 Resolved 03/02 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 Cellulitis of lower limb 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 Z79.2 (ICD-10-CM ) 01/14 Inactive 01/14 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 [facility] (current) use of antibiotics Anemia in chronic diseases(docu ment disease) D63.8 (ICD-10-CM ) 01/14 Active 01/14 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 Anemia in other chronic diseases classified elsewhere Chronic respiratory failure with hypoxia 19066165 (SNOMED CT) 01/14 Active 01/14 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 Acute respiratory failure COPD 58385371 (SNOMED CT) 01/14 Active 01/14 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 Chronic obstructive pulmonary disease DM Type II E11.9 (ICD-10-CM ) 01/14 Inactive 01/14 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 Type 2 diabetes mellitus without complications Benign Essential Hypertension 61558811 (SNOMED CT) 01/14 Removed 01/14 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 Benign hypertension Acquired absence of left knee joint 690927067 (SNOMED CT) 03/02 Resolved 03/02 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 History of operative procedure on knee Obesity due to excess calories E66.09 (ICD-10-CM ) 03/02 Resolved 03/02 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 Other obesity due to excess calories 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 s Z79.01 (ICD-10-CM ) 03/02 Resolved 03/02 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s Staph epi infection B95.7 (ICD-10-CM ) 03/02 Resolved 03/02 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 Other staphylococcus as the cause of diseases classified elsewhere Diarrhea 34501052 (SNOMED CT) 09/28 Resolved 09/28 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 Diarrhea Staph hominis infection B95.7 (ICD-10-CM ) 09/28 Resolved 09/28 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 Other staphylococcus as the cause of diseases classified elsewhere Staph hominis infection B95.7 (ICD-10-CM ) 09/28 Removed 09/28 Arie Dougherty MD Other staphylococcus as the cause of diseases classified elsewhere Diarrhea 34507512 (SNOMED CT) 09/28 Removed 09/28 Arie Dougherty MD Diarrhea Acquired absence of left knee joint 387394557 (SNOMED CT) 03/02 Removed 03/02 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 History of operative procedure on knee Cellulitis of left leg 523100525 (SNOMED CT) 03/02 Removed 03/02 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 Cellulitis of lower limb Knee, left, subsequent encounter, infection/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 T84.54xD (ICD-10-CM ) 03/02 Active 03/02 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 Infection and inflammatory reaction due to internal left knee prosthesis, subsequent encounter Staph epi infection B95.7 (ICD-10-CM ) 03/02 Removed 03/02 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 Other staphylococcus as the cause of diseases classified elsewhere 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 s Z79.01 (ICD-10-CM ) 03/02 Removed 03/02 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 [facility] (current) use of anticoagulants Obesity due to excess calories E66.09 (ICD-10-CM ) 03/02 Removed 03/02 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 Other obesity due to excess calories Hx of malignant neoplasm of breast 455729676 (SNOMED CT) 03/02 Removed 03/02 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 History of malignant neoplasm of breast Medications Medication Instructions Start Date Stop Date Generic Name NDC Provider DOXYCYCLINE MONOHYDRATE 100 MG CAPS Take 1 capsule by mouth twice a day 10/25 doxycycline monohydrate 10939861963 Arie Dougherty MD ceftriaxone recon soln 2GM IV Q24hrs [facility] 02/18 ceftriaxone recon soln Temi Norris Cubicin RF 800mg IV Q48hrs [facility] 02/18 daptomycin Temi Norris DOXYCYCLINE MONOHYDRATE 100 MG CAPS Take 1 capsule by mouth twice a day 02/03 doxycycline monohydrate 59243118357 Arie Dominguez RF 800mg IV Q48hrs [facility] 02/18 daptomycin Nubia Ervin ceftriaxone recon soln 2GM IV Q24hrs [facility] 02/18 ceftriaxone recon soln Nubiadeidre Ervin IPRATROPIUM-ALBUT MIKE 0.5-2.5 (3) MG/3ML SOLN 3 ml by mouth PRN 01/27 ipratropium-albut mike 07241371544 Nubia Minor Gaviscon 95-358 mg/15 mL suspension by mouth four times a day 30 mL aluminum hydrox-magnesium carb 00992641522 Nubia Minor IPRATROPIUM-ALBUT MIKE 0.5-2.5 (3) MG/3ML SOLN using nebulizer every six hours PRN ipratropium-albut mike 64270555163 Nubia Minor BASAGLAR KWIKPEN 100 UNIT/ML SOPN subcutaneously once a day insulin glargine 14163384317 Nubia Minor MUCUS RELIEF D 60-600 MG [id number] by mouth twice a day pseudoephedrine-g uaifenesin 91352287655 Nubia Minor VITAMIN B-12 100 MCG TABS by mouth once a day cyanocobalamin (vitamin b-12) 36845259832 Nubia Minor PERCOCET 5-325 MG TABS 1-2 tablet every four to six hours oxycodone-acetami nophen 48747171386 Nubia Minor BIOTIN 1000 MCG TABS by mouth once a day biotin 62402032327 Nubia Minor GABAPENTIN 800 MG TABS by mouth four times a day as needed gabapentin 68711009078 Nubia Minor ATORVASTATIN CALCIUM 40 MG TABS by mouth every morning Hold while on daptomycin atorvastatin 52632313255 Nubia Minor FERROUS SULFATE 325 (65 Fe) MG TABS by mouth once a day ferrous sulfate 96133801728 Nubia Minor VENLAFAXINE HCL 75 MG TABS by mouth twice a day venlafaxine 93447927555 Nubia Minor CITRACAL MAXIMUM 315-6.25 MG-MCG TABS by mouth twice a day calcium citrate-vitamin d3 12115686049 Nubia Poncho JANUMET XR 50-1000 MG [id number]-ORX by mouth twice a day sitagliptin phos-metformin 81004442587 Nubia Minor GNP HYDROCORTISONE/AL OE 1 % CREA Apply to skin twice a day as needed hydrocortisone acetate 27759523731 Nubia Minor MS CONTIN 15 MG CR-TABS by mouth twice a day morphine 10415625538 Nubia Minor OMEPRAZOLE 20 MG TBEC 2 tablet by mouth once a day omeprazole 92221959685 Nubia Minor DOXYCYCLINE HYCLATE 100 MG TABS Take 1 tablet by mouth twice a day 01/11 doxycycline hyclate 03187349086 Nubia Minor CARVEDILOL 12.5 MG TABS by mouth twice a day carvedilol 77561382663 Nubia Minor PROMETHAZINE HCL 25 MG TABS by mouth three times a day as needed promethazine 20584859238 Nubia Minor TIZANIDINE HCL 4 MG TABS by mouth three times a day as needed tizanidine 62012247280 Nubia Minor LACTULOSE 10 GM/15ML SOLN 30 ml by mouth as needed lactulose 98673945414 Nubia Minor COLACE 100 MG CAPS by mouth twice a day as needed docusate sodium 36413373023 Nubia Minor XARELTO TABLET 15 mg 15 mg Take 1 by mouth once a day XARELTO TABLET 15 mg 15 mg Nubia Minor ANASTROZOLE 1 MG TABS by mouth once a day anastrozole 53230991589 Nubia Minor ACETAMINOPHEN 500 MG TABS by mouth every six hours PRN acetaminophen 21916458815 Nubia Minor LOPERAMIDE HCL 2 MG CAPS by mouth once a day PRN loperamide 29287877972 Nubia Minor ASCORBIC ACID 500 MG TABS by mouth 0.5 tab am and 0.5 tab pm ascorbic acid (vitamin c) 87609182094 Nubia Minor BACLOFEN 10 MG TABS by mouth three times a day baclofen 00044336668 Nubia Minor BREO ELLIPTA 100-25 MCG/ACT AEPB every morning fluticasone furoate-vilantero l 66208331093 Nubia Minor BUMETANIDE 2 MG TABS by mouth twice a day bumetanide 09805055965 Nubia Minor CALCIUM 600 1500 (600 Ca) MG TABS by mouth twice a day calcium carbonate 73376564343 Nubia Minor D3 HIGH POTENCY 10 MCG (400 UNIT) TABS by mouth 2.5 units am and 2.5 units pm cholecalciferol (vitamin d3) 18724887041 Nubia Minor PLAVIX 75 MG TABS by mouth every morning clopidogrel 45422368414 Nubia Minor VITAMIN B-12 1000 MCG TABS by mouth every morning cyanocobalamin (vitamin b-12) 18226715682 Nubia Minor FLONASE ALLERGY RELIEF 50 MCG/ACT SUSP intranasally every morning fluticasone propionate 07391520139 Nubia Minor FOSAMAX 70 MG TABS by mouth once a week alendronate 63133058370 Nubia Minor GLIPIZIDE ER 2.5 MG [id number] by mouth every morning 0.5 tab glipizide 89565326861 Nubia Minor LANTUS SOLOSTAR 100 UNIT/ML SOPN 8 unit subcutaneously every night insulin glargine 27635260720 Nubia Minor IPRATROPIUM-ALBUT MIKE 0.5-2.5 (3) MG/3ML SOLN 3 ml by mouth PRN 01/27 ipratropium-albut mike 08063526747 Nubia Minor JARDIANCE 10 MG TABS by mouth every morning empagliflozin 26791866013 Nubia Minor MAGNESIUM OXIDE 400 MG TABS by mouth twice a day magnesium oxide 83354479292 Nubia Minor METFORMIN HCL 1000 MG TABS by mouth twice a day metformin 82292082778 Nubia Minor MULTI-VITAMIN HP/MINERALS CAPS by mouth once a day multivitamin,tx-m inerals 59652293941 Nubia Minor ONDANSETRON HCL 4 MG TABS by mouth twice a day PRN ondansetron hcl 33060612018 Nubia Minor PANTOPRAZOLE SODIUM 20 MG TBEC by mouth once a day pantoprazole 88523575400 Nubia Minor PREGABALIN 50 MG CAPS by mouth three times a day pregabalin 02071261244 Nubia Isaac SENNA 8.6 MG TABS by mouth 2 tabs PRN sennosides 85207277950 Nubia Isaac SPIRONOLACTONE 50 MG TABS by mouth once a day spironolactone 09118944762 Nubia Isaac TRAZODONE HCL 150 MG TABS by mouth once a day 2 tabs trazodone 50808058683 Nubia Isaac VALSARTAN 80 MG TABS by mouth twice a day valsartan 53018306896 Nubia Isaac VENLAFAXINE HCL ER 150 MG [id number] by mouth every morning venlafaxine 05380126223 Nubia Isaac VANCOMYCIN HCL SOLR 1gm IV q 12 x 6wks [facility] [phone] 10/05 VANCOMYCIN HCL SOLR 90337447736 Libby Cabello JIMI MS CONTIN 15 MG CR-TABS by mouth twice daily 01/11 MORPHINE SULFATE 56872730112 Arie Dougherty MD PERCOCET 5-325 MG TABS 1-2 tabs, every four to six hours, do not exceed 4000mg of acetaminophen per day 01/11 OXYCODONE-ACETAMI NOPHEN 60541597621 Arie Dougherty MD [facility] IRON 325 (65 Fe) MG TABS by mouth daily 01/11 FERROUS SULFATE 49852583509 Arie Dougherty MD COLACE 100 MG CAPS by mouth twice daily as needed 02/19 DOCUSATE SODIUM 94377682945 Arie Dougherty MD DOXYCYCLINE HYCLATE 100 MG TABS take 1 tab po BID 02/19 DOXYCYCLINE HYCLATE 42672240741 Arie Dougherty MD XARELTO TABLET Take one by mouth once daily. 01/11 RIVAROXABAN TABS 87978748161 Arie Dougherty MD COUMADIN 5 MG ORAL TABLET by mouth, AC dinner 10/17 WARFARIN SODIUM 81338262424 Arie Dougherty MD VANCOMYCIN HCL SOLR 1gm IV q 12 x 6wks [facility] [phone] 08/22 VANCOMYCIN HCL SOLR 56331704174 [facility] VANCOMYCIN HCL SOLR 750 mg IV q 12 x 6wks [facility] [phone] 03/31 VANCOMYCIN HCL SOLR 84515497885 [facility] VANCOMYCIN HCL SOLR 750 mg IV q 12 x 6wks [facility] [phone] 08/22 VANCOMYCIN HCL SOLR 32003726901 Daily Lewis RN VENLAFAXINE HCL 75 MG TABS by mouth twice daily 01/11 VENLAFAXINE HCL 34447130892 Kulwant P PROMETHAZINE HCL 25 MG TABS by mouth three times a day as needed 01/11 PROMETHAZINE HCL 41602752285 Kulwant P B-12 100 MCG TABS by mouth daily 09/29 CYANOCOBALAMIN 06383405728 Kulwant P JANUMET XR 50-1000 MG [id number] by mouth twice daily 01/11 SITAGLIPTIN-METFO RMIN HCL 64011517889 Kulwant P TIZANIDINE HCL 4 MG TABS by mouth three times a day as needed 01/11 TIZANIDINE HCL 39485997005 Kulwant P GABAPENTIN 800 MG TABS by mouth four times a day as needed 01/11 GABAPENTIN 04072658380 Kulwant P CARVEDILOL 12.5 MG TABS by mouth twice daily 01/11 CARVEDILOL 47365421415 Kulwant P ANASTROZOLE 1 MG TABS by mouth daily 01/11 ANASTROZOLE 69422979603 Kulwant P CITRACAL MAXIMUM 315-6.25 MG-MCG TABS by mouth twice daily 01/11 CALCIUM CITRATE-VITAMIN D 48419450097 Kulwant P [facility] OMEPRAZOLE 20 MG TBEC 2 tabs by mouth once daily 01/11 OMEPRAZOLE 86033565779 Kulwant P BIOTIN 1000 MCG TABS by mouth daily 01/11 BIOTIN 16184440290 Kulwant P ATORVASTATIN CALCIUM 40 MG TABS by mouth at bedtime 01/11 ATORVASTATIN CALCIUM 60231855009 Kulwant P COUMADIN 5 MG ORAL TABLET by mouth, AC dinner 05/19 WARFARIN SODIUM 89037329868 Kulwant P LACTULOSE SOLN 30mL by mouth as needed 02/19 LACTULOSE SOLN 44965971373 Kulwant P HYDROCORTISONE ACETATE 1 % CREA apply topically twice a day as needed 10/25 HYDROCORTISONE ACETATE 59652153992 Kulwant P MS CONTIN 15 MG CR-TABS by mouth twice daily 11/20 MORPHINE SULFATE 75368183680 Kulwant P [facility] IRON 325 (65 Fe) MG TABS by mouth daily 11/20 FERROUS SULFATE 03130096279 Kulwant P COLACE 100 MG CAPS by mouth twice daily as needed 02/19 DOCUSATE SODIUM 55891284076 Kulwant P PERCOCET 5-325 MG TABS 1-2 tabs, every four to six hours, do not exceed 4000mg of acetaminophen per day 11/20 OXYCODONE-ACETAMI NOPHEN 73203766145 Kulwant P VANCOMYCIN HCL SOLR 1gm IV q 12 x 6wks [facility] [phone] 08/22 VANCOMYCIN HCL SOLR 96773641008 [facility] Medications Administered No information available. 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 Dietary management education, guidance, and counseling [...] Oral Antibiotic CPT-ca Continue IV antibiotics 2022 CPT-68772 CMP [id number] CBC with Differential 2022 CPT-94186 C- reactive protein [id number], [id number] CPK CPT-J7030 IV Fluids CPT-sl STAT Labs CPT-sl STAT Labs CPT-sl STAT Labs CPT-15384 C- reactive protein CPT-65649 Sedimentation Rate (ESR) 201 02/20/04 CPT-08506 Vancomycin Trough CPT-33555 CMP [id number] CBC with Differential 2015 CPT-74691 C- reactive protein CPT-54014 Sedimentation Rate (ESR) 201 01/31/26 CPT-ca Continue IV antibiotics 2015 CPT-wpc Weekly PICC Line Care 09/28 CPT-85869 CMP [id number] CBC with Differential 2015 CPT-78834 Vancomycin Trough CPT-86778 C- reactive protein CPT-09726 Sedimentation Rate (ESR) 201 01/31/07 CPT-cdpcr C-Diff PCR CPT-isi New IV antibiotic CPT-19554 PICC Line Insertion CPT-35169 [facility] [id number] CBC with Differential 2015 CPT-65293 C- reactive protein CPT-30607 Sedimentation Rate (ESR) 201 01/30/30 CPT-DC Discontinue IV antibiotics 2 CPT-PICREM PICC Removal CPT-ca Continue IV antibiotics 2015 CPT-57021 CMP [id number] CBC with Differential 2015 CPT-38281 C- reactive protein CPT-63589 Sedimentation Rate (ESR) 201 01/27/01 CPT-73526 Vancomycin Trough CPT-ca Continue IV antibiotics 2015 CPT-08342 CMP [id number] CBC with Differential 2015 CPT-49666 C- reactive protein CPT-00185 Sedimentation Rate (ESR) 201 01/27/20 CPT-19278 Vancomycin Trough CPT-ca Continue IV antibiotics 2015 [...]
--- OUTSIDE RECORDS SUMMARY | 2025-02-22 11:02 | XMS_ITS | Encounter Summary ---
Author Organization [facility] Address [address] [place] [address] Care Team Providers Care Financial Agent Name Role Phone Daniel Barba MD Primary Care Provider [phone] Judy Huff PROPERTY MASTER Unavailable UnavailCayla Carvajal APRN, DNP Unavailable [phone] Vignesh Pickens MD Primary Care Provider + [phone] Encounter Details Date Type Department Care Team (Late Contact Info) Description 08/11/2022 Orders Only External Location [address] [place] [address] Provider, External Social History Tobacco Use Types [...] Office Visit [facility] [address] [place] [address] Doug Chapman MD [address] [place] [address] 03/27/2025 10:30 AM EDT Appointment [facility] Ultrasound [address] [place] [address] 03/27/2025 11:50 AM EDT Clinical Support Medical [facility] Building Lab [address] [place] [address] 03/27/2025 1:00 PM EDT Office Visit [facility] U[facility] [address], [address] [place] [address] Cayla Erazo, DEPUTY ADMINISTRATOR, DNP [address] [place] [address] 05/16/2025 8:00 AM EDT Office Visit [facility] [place] [address], [address] [place] [address] Karly Gracia MD [address] [place] [address] 06/07/2025 1:00 PM EDT Office Visit [facility] [address] [place] [address] Tom Iraheta MD [address] [place] [address] documented as of this encounter [...] documented as of this encounter Care Teams Financial Agent Relationship Specialty Start Date End Date Daniel Barba MD [address] [place] [address] PCP - General 01/02/21 12/30/24 Vignesh Pickens MD [address] [place] [address] PCP - General 12/31/24 Judy Huff, PROPERTY MASTER [facility] Nurse 08/24/24 08/24/24 Cayla Erazo APRN, [place] [address] [place] [address] Nurse Practitioner Urology 12/20/24 documented as of this encounter
--- OUTSIDE RECORDS SUMMARY | 2025-02-22 11:02 | XMS_ITS | Encounter Summary ---
Author Organization [facility] Address [address] [place] [address] Care Team Providers Care Prom Burn Off Operator Name Role Phone Daniel Barba MD Primary Care Provider [phone] Judy Huff YARD SUPERVISOR [employer] Unavailable Unavailabl e Cayla Erazo APRN, DNP Unavailable [phone] Vignesh Pickens MD Primary Care Provider + [phone] Encounter Details Date Type Department Care Team (Late st Contact Info) Description 07/28/2022 Orders Only External Location [address] [place] [address] Gregg Morgan MD [address] [place] [address] Social History Tobacco Use Types [...] [address] [place] [address] Doug Chapman MD [address] [place] [address] 03/27/2025 10:30 AM EDT Appointment [facility] Ultrasound [address] [place] [address] 03/27/2025 11:50 AM EDT Clinical Support Medical Office Building Lab [address] [place] [address] 03/27/2025 1:00 PM EDT Office Visit Medical Office Building Urology [address], [address] [place] [address] Cayla Erazo, MINE ENGINEER, DNP [address] [place] [address] 05/16/2025 8:00 AM EDT Office Visit [facility] [place] [address], [address] [place] [address] Karly Gracia MD [address] [place] [address] 06/07/2025 1:00 PM EDT Office Visit [facility] [address] [place] [address] Tom Iraheta MD [address] [place] [address] documented as of this encounter [...] documented as of this encounter Care Teams Prom Burn Off Operator Relationship Specialty Start Date End Date Daniel Barba MD [address] [place] [address] PCP - General 01/02/21 12/30/24 Vignesh Pickens MD [address] [place] [address] PCP - General 12/31/24 Judy Huff, YARD SUPERVISOR [employer] [facility] TCM Nurse 08/24/24 08/24/24 Cayla Erazo APRN, [place] [address] [place] [address] Nurse Practitioner Urology 12/20/24 documented as of this encounter
--- OUTSIDE RECORDS SUMMARY | 2025-02-22 11:02 | XMS_ITS | Encounter Summary ---
Author Organization [facility] Address [address] [place] [address] Care Team Providers Care Shake Splitter Name Role Phone Daniel Barba MD Primary Care Provider [phone] Cayla Erazo APRN, [facility] Unavailable [phone] Vignesh Pickens MD Primary Care Provider [phone] Encounter Details Date Type Department Care Team (Late st Contact Info) Description 10/19/2024 Orders Only External Location [address] [place] [address] Provider, External Social History Tobacco Use Types [...] drink first t rodríguez in the morning (EYE-FORKLIFT TRUCK MECHANIC) to steady your nerves or to [...] Upcoming Encounters Date Type Department Care Team ([facility] st Contact Info) Description 03/07/2025 10:00 AM EDT Office Visit [facility]rology [address] [place] [address] Doug Chapman MD [address] [place] [address] 03/27/2025 10:[address] [facility] Ultrasound [address] [place] [address] 03/27/2025 11:50 AM EDT Clinical Support Medical Office Building Lab [address] [place] [address] 03/27/2025 1:00 PM EDT Office Visit Medical Office Building Urology [address], [address] [place] [address] Cayla rEazo, HOSPICE CONSULTANT, DNP [address] [place] [address] 05/16/2025 8:00 AM EDT Office Visit [facility] [place] [address], [address] [place] [address] Karly Gracia MD [address] [place] [address] 06/07/2025 1:00 PM EDT Office Visit [facility] [address] [place] [address] Tom Iraheta MD [address] [place] [address] documented as of this encounter [...] documented as of this encounter Care Teams Shake Splitter Relationship Specialty Start Date End Date Daniel Barba MD [address] [place] [address] PCP - General 01/02/21 12/30/24 Vignesh Pickens MD [address] [place] [address] PCP - General 12/31/24 Cayla Erazo APRN, DNP [address] [place] [address] Nurse Practitioner Urology 12/20/24 documented as of this encounter
--- OUTSIDE RECORDS SUMMARY | 2025-02-22 11:02 | XMS_ITS | Data Portability ---
Author Organization [place] [facility] Address [address] [facility] [address] [place] [address] Assessment No assessment recorded. Plan of Treatment [...] 08/11/2022 XR, knee, [address] [facility] [place] ca [address] [address] Patikvng t Name: ZEV Peñaloza LATONIAHENOK YOANNA [...] Franky wray MD on 2021 10:53 AM [facility] [place] [address], [place], [address], 08/19/2022 08:22:02 09/01/19 23 09/01/2022 MRI, knee, w/wo contr ast [facility] [address] [facility] [place] [address] Patien t Name: ZEV TRAORE CK Patien [...] admini strati on of 10cc Gadavi st ([facility] [address]25-0 2), there is conflu ent periph [...] Franky wray MD on 023 12:20 PM [email or web address] [facility] [address] [place] [address], [address], 09/22/2022 08:42:27 09/01/19 23 09/01/2022 MRI, knee, w/wo contr ast [address] [address] [place] [address]1 Patien t Name: ZEV [...] admini strati on of 10cc Gadavi [address] ([facility] [address]- 0325-0 2), there is conflu ent periph [...] Franky wray MD on 023 12:20 PM [id number] [facility] [address] [place], [address], 09/22/2022 08:42:28 09/27/19 24 09/27/2023 [facility] [address] [facility] [address] Luis t Name: ZEV stoner : [phone] [...] wray MD on 09/27/19 24 3:46 PM [facility] [place] [address] , [place], [address], 09/28/2023 16:18:54 Result Notes Documentation Provider Name and Address Organization Details Recorded Time Xr, Knee, 3 [facility] [address] [place] [address] Patient Name: EILEEN MAY Patient : 1960 [...] By: Arthur Pepe MD HI HOUGH PA-C [address] [place] [address], [phone], [facility] 08/19/2022 08:22:02 Mri, Knee, W/wo Contrast : [facility] [address] [place] [address] ADDENDUM #1 Patient Name: EILEEN MAY Patient [...] AP. After intravenous administration of 10cc Gadavist ([facility] [address]-12), there is confluent peripheral enhancement of this [...] By: Arthur Pepe MD HI HOUGH PA-C [address] [place] [address], [phone], [facility] 09/22/2022 08:42:28 Mri, Knee, W/wo Contrast : [address] [address] Patient Name: EILEEN MAY Patient : 1960 Patient Ordering Provider: SARAHI HOUGH EXAM DATE: 09/01/2022 EXAM: [facility] KNEE MARS W/WO CONTRAST HISTORY: 62-year-old female [...] AP. After intravenous administration of 10cc Gadavist ([facility] [address]-22), there is confluent peripheral enhancement of this [...] Arthur Pepe MD HI HOUGH PA-C [address] [place], [address], [facility] 09/22/2022 08:42:27 Xr, Knee, 3 View : [facility] [address] [place] [address] Patient Name: EILEEN MAY Patient : 1960 [...] Interpreted By: Arthur Pepe MD STORY PA-C [address] [place] [address], [address], [facility] 09/28/2023 16:18:54 Problems Name Problem SNOMED Code Status Onset Date Resolution Date Notes Provider Name and Address Organization Details Recorded Time Prostheti c joint infection 961819405 Active 2015 From Automated Load;Prov ider: Suzie Guerrier;St atus: Active Gayle Mckeon [facility] 4 08:21:42 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 944765847 Active 2015 From Automated Load;Prov ider: Suzie Guerrier;St atus: Active Gayle Mckeon [facility] 4 08:21:42 Type 2 diabetes mellitus without complicat ion 807657188 Active 2015 From Automated Load;Prov ider: Pooja Ricketts; Status: Active Gayle Mckeon [facility] 4 08:21:42 Hypertens qiana disorder 01358704 Active 2015 From Automated Load;Prov ider: Pooja Ricketts; Status: Active Gayle Mckeon [facility] 4 08:21:42 Venous embolism 792611687 Active 2015 From Automated Load;Prov ider: Pooja Ricketts; Status: [facility] 08:21:42 Deep venous thrombosi s of lower extremity 612057958 Active 2015 From Automated Load;Prov ider: Pooja Ricketts; Status: [facility] 4 08:21:42 Anemia 717499591 Active 2015 From Automated Load;Prov ider: Aislinn Robin;St atus: Active Gayle Mckeon [facility] 4 08:21:42 Coronary arteriosc lerosis in viejas artery 050888057386 7 Active 2015 From Automated Load;Prov ider: Aislinn Robin; atus: [facility] 4 08:21:41 Prostheti c joint infection 640667719 [place] [address] [place] [address], [address], [facility] 4 11:50:07 Problem Notes None recorded. Procedures Surgical History Date Name Laterality Status Provider Name and Address Organization Details Recorded Time 4 Aspiration Joint/Bursa, Major completed LISA STORY PA-C [address] [place], [address], [facility] 09/27/2023 16:07:18 Imaging Results None recorded. Procedure Notes None recorded. Medical Equipment None Reported. Allergies Allergen ID Allergen Name Allergen Category Reaction Reaction Severity Criticality Documentation Date Start Date Code Code System Note Provider Name and Address Organization Details Recorded Time 839902 Substance with sulfonami de structure and antibacte rial mechanism of action (substanc e) medicatio n Not available Not available Not available 07/16/20162015 45447 8003 SNOMED Comme nt: Creat ed By: Simone salinas;Cre ated Date: 2015 2:50: 12 PM; Not Available [facility] 6 09:33:23 323037 Wellbutri n medicatio n Not available Not available Not available 07/16/20162015 69289 RxNorm Comme nt: Creat ed By: Simone salinas;Cre ated Date: 2015 2:50: 46 PM; Not Available [facility] 6 09:47:17 681803 acetamino phen / hydrocodo ne medicatio n Not available Not available Not available 07/16/20162015 30840 2 RxNorm Comme nt: Creat ed By: Simone salinas;Cre ated Date: 2015 2:50: 59 PM; Not Available [facility] 6 09:47:18 072708 Ultram medicatio n Not available Not available Not available 07/16/20162015 78657 6 RxNorm Comme nt: Creat ed By: Simone lockhartCre ated Date: 2015 2:51: 14 PM; Not Available [facility] 6 10:10:25 Medications Name Sig Start Date [...] for 10 days. 08/11 completed Mailed to [facility] , [address] [facility] [place] [address] Not Available Not Available Not Available doxycycli [...] Updated DateTime 09/01/2022 162.56 cm 37.6 kg/m2 61433.73 g [facility] 09/01/2022 12:30:28 Date Recorded Body height Provider Name an d Address Organization Details Last Updated DateTime 09/27/2023 162.56 cm [facility] 0 09/27/2023 14:45:54 Date Recorded Body height Provider Name an d Address Organization Details Last Updated DateTime 10/25/2023 162.56 cm [facility] 11:45:38 Date Recorded Body weight Body mass index (BMI) Body height Provider Name and Address Organization Details Last Updated DateTime 08/11/2022 77544.73 g 37.6 kg/m2 162.56 cm [facility] 08/11/2022 11:07:51 Social History None recorded. Functional Status None recorded. Mental Status None recorded. Family History Nothing Reported. 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 No medical history recorded. Gynecological HistoryNo gynecological history recorded. 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 She states she has had purulent [...] surgical discussion once Synovasure analysis is completed. [id number] SUZIE Richards MD [facility] [address] [place] [address] 10/25/2023 11:27:50 10/25/2023 13:02:53 Prosthetic joint infection 095464904 T84.54XS ASSESSMENT : Chronic recurrent PJI left [...] tion has been echoed by colleagues at [facility] orthopedic s. At this point, Malathi is amenable to amputation . I have discussed her case with Dr. Will garcia, who has kindly agreed to assist us with the procedure. We will coordinate with his office regarding surgical scheduling , but tentative plan for above-knee amputation on December 08 at [facility]. From a technical standpoint , we will [...] were answered to the best my ability. [id number] SUZIE Richards MD SURGERY SCHEDULE [address] [place] [address] 12/14/2023 08:58:40 12/16/2023 10:03:36 Health Concerns [...] HEALTH CHOICES - FFS/TRADITION AL Eileen May [id number] Eileen May 10/12/2023 2 [place] HE[place] CHO[place] - FFS/TRADITION AL Eileen May [id number] Eileen May 10/12/2023 [facility] Eileen Jh Guy [id number] Eileen May 12/06/2023 1 [place] Eileen Jh Guy [id number] Eileen May Notes Date Note Type Note Provider Name and Address Organization Details Recorded Time 08/11/2022 text/html 75-16-02qxccbhzs e is 5 years S/P L TKA preformed in January of 2016. She returns with no pain or concerns to her TKA. She does have a visable nodule to anterior aspect of knee that is painful to touch 8/10 and she feels is causing her difficulty walking. She is inpatient at [facility] and comes ambualtign in wheelchair today. Patient [...] evaluation and treatment options. SARAHI HOUGH PA-C [address] [place] [address], [address], [facility] 08/11/2022 13:06:31 09/01/2022 text/html 09/01/2022MrsSebastian May is 5 years S/P L TKA preformed in January of 2016 returns to discuss [place] results. She comes to appointment accompanied by caregiver from [facility]. She remains using wheelchair. Since last visit [...] mg b.i.d for pain with no benefit. 41-74-13iqovgktdv is 5 years S/P L TKA preformed in January of 2016. She returns with no pain or concerns to her TKA. She does have a visable nodule to anterior aspect of knee that is painful to touch 8/10 and she feels is causing her difficulty walking. She is inpatient at [facility] and comes ambualtign in wheelchair today. Patient [...] evaluation and treatment options. SARAHI HOUGH PA-C [address] [place], [address], [facility] 09/01/2022 13:56:37 09/27/2023 text/html 09/27/23 Mrs. May is present for routine evaluation of L TKA 02/18/2016. She comes to appointment accompanied by caregiver from [facility]. Patient does have known history of prosthetic [...] 5/325 mg b.i.d PRN LISA STORY PA-C [address] [place], [address], [facility] 09/27/2023 16:09:08 10/25/2023 text/html 5-2-06[place] returns today in follow-up for her chronic [...] ago. Shortly thereafter, she was readmitted to [facility] in acute renal failure. That improved with [...] comes to appointment accompanied by caregiver from [facility]. Patient does have known history of prosthetic [...] in January of 2016 returns to discuss [place] results. She comes to appointment accompanied by caregiver from [facility]. She remains using wheelchair. Since last visit she voices increased swelling that since subsided with use of elevation and ICE but increased pain severity of 7/10 especially when trying to bear weight. 66-69-14qpdwypfup is 5 years S/P L TKA preformed in January of 2016. She returns with no pain or concerns to her TKA. She does have a visable nodule to anterior aspect of knee that is painful to touch 8/10 and she feels is causing her difficulty walking. She is inpatient at [facility] and comes ambualtign in wheelchair today. Patient [...] and treatment options. SUZIE RODRIGUEZ MD [address] [place], [address], [facility] 10/30/2023 11:53:31 OBGyn Episode No OBEpisode recorded.
--- OUTSIDE RECORDS SUMMARY | 2025-02-22 11:02 | XMS_ITS | Encounter Summary ---
Author Organization [facility] Address [address] [place] [address] Care Team Providers Care Nissan Sales Consultant Name Role Phone Cayla Erazo APRN, DNP Unavailable [phone] Vignesh Pickens MD Primary Care Provider [phone] Encounter Details Date Type Department Care Team [...] drink first t rodríguez in the morning (EYE-FARMER CASH GRAIN) to steady your nerves or to get [...] Description 03/07/2025 10:00 AM EDT Office Visit [facility] [address] [place] [address] Doug Chapman MD [address] [place] [address] 03/27/2025 10:30 AM EDT Appointment [facility] Ultrasound [address] [place] [address] 03/27/2025 11:50 AM EDT Clinical Support Medical [facility] Building Lab [address] [place] [address] 03/27/2025 1:00 PM EDT Office Visit [facility] [address] [facility], [address] [place] [address] Cayla Erazo APRN, DNP [address] [facility] [address] [place] [address] 05/16/2025 8:00 AM EDT Office Visit [facility] [address] [facility], [address] [place] [address] Karly Gracia MD [address] [place] [address] 06/07/2025 1:00 PM EDT Office Visit [facility] [address] [place] [address] Tom Iraheta MD [address] [place] [address] documented as of this encounter [...] documented as of this encounter Care Teams Nissan Sales Consultant Relationship Specialty Start Date End Date Vignesh Pickens MD [address] [place] [address] PCP - General 12/31/24 Cayla Erazo APRN, DNP [address] [facility] [address] [place] [address] Nurse Practitioner Urology 12/20/24 documented as of this encounter
--- OUTSIDE RECORDS SUMMARY | 2025-02-22 11:02 | XMS_ITS | Clinical Summary ---
Author Organization [facility] Address [address] [place] [address] Phone Care Team Providers Care Community Services Officer Name Role Phone Foreign Spangler MD, Andrei Paul Primary Care Provid er Allergies No known [...] [place] [id number] Care Teams Community Services Officer Relationship Specialty Start Date End Date Andrei Carrasquillo Sr., MD [address] [place] [address] PCP - General Construction Project Manager 03/17/16
--- OUTSIDE RECORDS SUMMARY | 2025-02-22 11:02 | XMS_ITS | Encounter Summary ---
Author Organization [facility] Address [address] [place] [address] Care Team Providers Care Quality Engineering Manager Name Role Phone Daniel Barba MD Primary Care Provider [phone] Cayla Erazo APRN, FREDERICK Unavailable [phone] Encounter Details Date Type Department Care Team ([facility] st Contact Info) Description 12/20/2024 Orders Only External Location [address] [place] [address] Provider, External Social History Tobacco Use Types [...] first t rodríguez in the morning (EYE-ASSEMBLER BILLIARD TABLE) to steady your nerves or to get [...] Visit [facility] [address] [place] [address] Doug Chapman MD [address] [address] 03/27/2025 10:30 AM EDT Appointment [facility] Ultrasound [address] [place] [address] 03/27/2025 11:50 AM EDT Clinical Support Medical Office Building Lab [address] [place] [address] 03/27/2025 1:00 PM EDT Office Visit [facility] Urology [address] [facility], [address] [place] [address] Cayla Eraoz APRN, DNP [address] [facility] [address] [place] [address] 05/16/2025 8:00 AM EDT Office Visit [facility] [address] [facility], [address] [place] [address] Karly Gracia MD [address] [place] [address] 06/07/2025 1:00 PM EDT Office Visit [facility] [address] [place] [address] Tom Iraheta MD [address] [place] [address] documented as of this encounter [...] documented as of this encounter Care Teams Quality Engineering Manager Relationship Specialty Start Date End Date Daniel Barba MD [address] [place] [address] PCP - General 01/02/21 12/30/24 Cayla Erazo, LIZANDRO, DNP [address] [place] [address] Nurse Practitioner Urology 12/20/24 documented as of this encounter
--- NOTE | 2025-02-22 12:18 | CT_ITS ---
PROCEDURE INFORMATION: Exam: CTA Chest With Contrast Exam date and time: 02/22/2025 12:48 PM Age: 64 years old Clinical indication: Other: Ecephalopathy, cough TECHNIQUE: Imaging protocol: Computed tomographic angiography of the chest with contrast. Exam focused on the arteries. 3D rendering (Not supervised by radiologist): MIP and/or 3D reconstructed images were created by the technologist. Total images: 800 Radiation optimization: All CT scans at this facility use at least one of these dose optimization techniques: automated exposure control; mA and/or kV adjustment per patient size (includes targeted exams where dose is matched to clinical indication); or iterative reconstruction. Contrast material: ISO 370; Contrast volume: 70 ml; Contrast route: INTRAVENOUS (IV); COMPARISON: CT ANGIO CHEST PE PROTOCOL 08/05/2022 2:52 PM FINDINGS: Pulmonary arteries: No evidence of pulmonary embolism. Aorta: No evidence of aortic dissection as imaged. Thyroid: Heterogeneous densities noted within both lobes of the thyroid. Further evaluation with thyroid ultrasound is recommended. Lungs: Atelectatic changes within the right lung base without focal pneumonia. Pleural spaces: No pleural effusions. No evidence of pneumothorax. Heart: Heart demonstrates mild diffuse enlargement. Lymph nodes: Unremarkable. No enlarged lymph nodes. Diaphragm: There is nonspecific elevation of the right hemidiaphragm. Liver: Granulomatous calcification noted within the liver. Bones/joints: Postoperative changes of the right shoulder. The thoracic spine demonstrates mild degenerative changes at multiple levels. Soft tissues: Unremarkable. IMPRESSION: 1. Atelectatic changes within the right lung base without focal pneumonia. 2. No evidence of pulmonary embolism. 3. No evidence of aortic dissection as imaged. 4. Mild cardiomegaly. 5. Heterogeneous densities noted within both lobes of the thyroid. Further evaluation with thyroid ultrasound is recommended.
--- NOTE | 2025-02-22 12:18 | CT_ITS ---
PROCEDURE INFORMATION: Exam: CT Abdomen And Pelvis With Contrast Exam date and time: 02/22/2025 12:48 PM Age: 64 years old Clinical indication: Other: Encephalopathy, cough, urinary burning TECHNIQUE: Imaging protocol: Computed tomography of the abdomen and pelvis with contrast. 3D rendering (Not supervised by radiologist): MIP and/or 3D reconstructed images were created by the technologist. Total images: 815 Radiation optimization: All CT scans at this facility use at least one of these dose optimization techniques: automated exposure control; mA and/or kV adjustment per patient size (includes targeted exams where dose is matched to clinical indication); or iterative reconstruction. Contrast material: ISOVUE; Contrast volume: 70 ml; Contrast route: IV; COMPARISON: CT ABDOMEN PELVIS WO CON 08/14/2024 8:23 PM FINDINGS: Lungs: Lung bases are clear. Diaphragm: There is nonspecific elevation of the right hemidiaphragm. Liver: Granulomatous calcification noted within the liver. Gallbladder and biliary ducts: Status post cholecystectomy. Pancreas: Normal. No ductal dilation. Spleen: Normal. No splenomegaly. Adrenal glands: Normal. No mass. Kidneys and ureters: Punctate calcifications noted within both kidneys. Moderate bilateral hydronephrosis and hydroureter without definite calcifications. Stomach and bowel: Large amount of stool is present throughout the colon. Mild diverticulosis is present in the distal colon. Appendix: No evidence of appendicitis. Intraperitoneal space: Normal. No significant fluid collection. Vasculature: Mild atherosclerotic disease. Lymph nodes: Unremarkable. No enlarged lymph nodes. Urinary bladder: Moderate bladder wall thickening. Reproductive: Unremarkable as visualized. Bones/joints: The lumbar spine demonstrates mild degenerative changes at multiple levels. The lumbar spine demonstrates mild degenerative changes at multiple levels. Soft tissues: Soft tissues are normal. IMPRESSION: 1. Punctate calcifications noted within both kidneys. 2. Moderate bilateral hydronephrosis and hydroureter without definite calcifications. 3. Moderate bladder wall thickening. 4. Mild diverticulosis is present in the distal colon.
--- NOTE | 2025-02-22 12:18 | CT_ITS ---
PROCEDURE INFORMATION: Exam: CT Head Without Contrast Exam date and time: 02/22/2025 12:46 PM Age: 64 years old Clinical indication: Other: Encephalopathy, cough TECHNIQUE: Imaging protocol: Computed tomography of the head without contrast. Radiation optimization: All CT scans at this facility use at least one of these dose optimization techniques: automated exposure control; mA and/or kV adjustment per patient size (includes targeted exams where dose is matched to clinical indication); or iterative reconstruction. COMPARISON: CT HEAD/BRAIN WO CON 08/14/2024 8:03 PM FINDINGS: Brain: Multiple chronic infarcts are again identified. There is tvnf-or-hqgccjrc small vessel disease. There is no evidence of acute parenchymal hemorrhage, extra-axial collection, or acute infarction. There is no mass effect, midline shift, or downward herniation. Cerebral ventricles: No ventriculomegaly. Paranasal sinuses: There is mild paranasal sinus disease. Mastoid air cells: Visualized mastoid air cells are well aerated. Bones: Unremarkable. No acute fracture. Soft tissues: Unremarkable. IMPRESSION: 1. No evidence of acute intracranial process. 2. Multiple chronic infarcts. Jivv-jc-mdzvtmew small vessel disease.
--- NOTE | 2025-02-22 12:20 | XR_ITS ---
PROCEDURE INFORMATION: Exam: XR Chest Exam date and time: 02/22/2025 12:54 PM Age: 64 years old Clinical indication: Cough TECHNIQUE: Imaging protocol: Radiologic exam of the chest. Views: 1 view. Total images: 1 COMPARISON: CT ANGIO CHEST PE PROTOCOL 02/22/2025 12:48 PM FINDINGS: Lungs: Atelectatic and/or early infiltrative changes noted within the right lower lobe. Pleural spaces: No pleural effusion. No pneumothorax. Heart/Mediastinum: Heart demonstrates mild diffuse enlargement. Bones/joints: Postoperative changes of the right shoulder. The thoracic spine demonstrates mild degenerative changes at multiple levels. IMPRESSION: 1. Mild cardiomegaly. 2. Atelectatic and/or early infiltrative changes noted within the right lower lobe.
--- NOTE | 2025-02-22 12:21 | ECG_ITS ---
APPROVED REPORT Exam: Resting ECG HR:80 bpm ECG Measurements Heart Rate 80 AXES AZ 235 P 86 QRSd 162 QRS 264 QT 432 T 73 QTc 468 Conclusion SINUS RHYTHM WITH FIRST DEGREE AV BLOCK INDETERMINATE AXIS RIGHT BUNDLE BRANCH BLOCK [120+ ms QRS DURATION, UPRIGHT V1, 40+ ms S IN I/aVL/V4/V5/V6] LEFT POSTERIOR FASCICULAR BLOCK [QRS AXIS > 109, INFERIOR Q] ABNORMAL ECG Electronically signed by : MARLEN MALDONADO, 02/22/2025 14:13:15
--- NOTE | 2025-02-22 12:23 | PC.NURSE ---
rosalie from retirement called to check on pt, gave update on POC.
[2025-02-22 12:24] LABS: Hematocrit 33.8 % (37.0-47.0); Hemoglobin 10.6 g/dL (12.2-16.2); Immature Granulocytes % 0.5 %; Mean Corpuscular HGB Conc 31.4 g/dL (31.8-35.4); Mean Corpuscular Hemoglobin 26.0 pg (27.0-31.2); Mean Corpuscular Volume 82.8 fl (81-99); Nucleated Red Blood Cells % 0 %; Platelet Count 294 K/mm3 (142-424); Red Blood Count 4.08 M/mm3 (4.20-5.40); Red Cell Distribution Width-SD 44.0 fL; White Blood Count 6.4 K/mm3 (4.8-10.8)
--- NOTE | 2025-02-22 12:24 | HMH.EDGENADL ---
Discharge Plan Disposition Patient Disposition: Xfer Short-Term Hosp Prescriptions Prescriptions: No Action acetaminophen 500 mg tablet 500 mg PO Q6HP PRN (Reason: Mild Pain (Scale Score 1-4)) anastrozole 1 mg tablet 1 mg PO DAILY atorvastatin 40 mg tablet 40 mg PO DAILY carvedilol 12.5 mg tablet 12.5 mg PO BID calcitriol 0.25 mcg capsule 0.25 mcg PO DAILY diphenhydramine HCl [Allergy (diphenhydramine)] 25 mg tablet 25 mg PO BID PRN dextromethorphan-guaifenesin [Guaiasorb DM] 10-100 mg/5 mL liquid 10 ml PO Q4H PRN duloxetine 30 mg capsule,delayed release(DR/EC) 30 mg PO DAILY Rx Instructions: give with 60mg capsule for a total of 90mg daily duloxetine 60 mg capsule,delayed release(DR/EC) 60 mg PO DAILY Rx Instructions: give with 30mg capsule for a total of 90mg daily ipratropium-albuterol 0.5 mg-3 mg(2.5 mg base)/3 mL solution for nebulization 3 ml inhalation Q6H PRN AZO D-Mannose 500 mg capsule 2,000 mg PO DAILY estradiol 0.01 % (0.1 mg/gram) cream 1 g vaginal .3xwk insulin aspart U-100 100 unit/mL (3 mL) insulin pen 1 sliding scale dose SQ USEASDIRECTD trospium 20 mg tablet 20 mg PO BID Rx Instructions: administer on an empty stomach mirabegron [Myrbetriq] 50 mg tablet extended release 24 hr 50 mg PO DAILY loperamide 2 mg capsule 2 mg PO Q4HP PRN (Reason: Diarrhea) pantoprazole [Protonix] 20 mg tablet,delayed release (DR/EC) 20 mg PO DAILY baclofen 10 mg tablet 10 mg PO TID azelastine 137 mcg (0.1 %) aerosol,spray 2 spray intranasal BID Qty: 30 3RF Rx Instructions: administer into each nostril artifi.tears(hypromellose)(PF) 1.7 % drops with applicator 1 drp Eye-Both BID PRN ascorbic acid (vitamin C) [Vitamin C] 500 mg tablet 500 mg PO BID pregabalin 50 mg capsule 50 mg PO BID Qty: 60 5RF oxycodone-acetaminophen [Percocet] 5-325 mg tablet 1 tab PO BID PRN (Reason: Pain (Scale Score 7-10)) Qty: 60 0RF fentanyl 12 mcg/hr patch 72 hour 1 patch transdermal Q72H Qty: 10 0RF insulin glargine [Basaglar KwikPen U-100 Insulin] 100 unit/mL (3 mL) insulin pen 70 unit SQ BID clopidogrel 75 MG tablet 75 mg PO DAILY multivitamin with minerals 1 EACH tablet 1 each PO DAILY ondansetron 4 mg Tablet,Disintegrating 4 mg PO Q6HP PRN (Reason: Nausea And Vomiting) trazodone 150 mg tablet 300 mg PO HS ferrous sulfate [iron] 325 mg (65 mg iron) tablet 325 mg PO BID cyanocobalamin (vitamin B-12) [Vitamin B-12] 1,000 mcg Tablet 1,000 mcg PO DAILY fluticasone propionate 50 mcg/actuation [place],Suspension 1 spray INTRANASAL BID Rx Instructions: administer into each nostril cholecalciferol (vitamin D3) [Vitamin D3] 25 mcg (1,000 unit) Tablet 25 mcg PO BID Xarelto 15 mg Tablet 15 mg PO DAILY fluticasone furoate-vilanterol [Breo Ellipta] 100-25 mcg/dose Blister With Device 1 inh INHALATION DAILY magnesium oxide 400 mg magnesium Tablet 400 mg PO BID Referrals Follow up/Referrals: Provider,Referral, MD [Primary Care Provider, Medical] - See instructions Clinical Impressions Clinical Impression: Acute UTI, Acute hyponatremia, Hypochloremia, COPD exacerbation, Acidosis, CHF (congestive heart failure), Hydroureter Print Language Print Language: Libyan Discharge ED Provider: Jordan Carl General Adult HPI General Chief complaint: Weakness Stated complaint: Lethargy Time Seen by Provider: 02/22/25 11:30 Mode of Arrival: EMS Source of Information: Patient and EMS Description of Symptoms (Recalled from ER Triage Doc. by RN): EMS was called to [place] for pt with weakness, hyponatremia, and lethargic. Per EMS when they got to [place] the pt was 84% 02 on room air. pt was placed on 4L at 96%. pt was given a duo neb enroute to [facility]. pt reports shortness of breath, chest tightness, and head pain. pt hx of kidney failure. pt a&o x4. pt wears 2L of 02 at bed time. pt is on room air with 02 at 96%. History of Present Illness HPI narrative: Patient is 64-year-old female with multiple comorbidities including hypertension hyperlipidemia, CVA with left-sided residual, diabetes that is insulin-dependent, previous stroke with residual weakness, systolic heart failure, COPD not on oxygen who presents emergency department for evaluation of shortness of breath and encephalopathy. History is obtained by chart review and per Dr. Pickens. Patient recently was diagnosed with hyponatremia in the low 120s at skilled nursing and he was encouraging her for the last few days to come here for continued evaluation for which she declined and was alert and oriented to make her decision to do so. Today she finally decided that it was time to come to the emergency department. She has had intermittent confusion, cough, shortness of breath. Denies chest pain, trauma. Please note that above description of symptoms, in this electronic medical record under categorization of recalled from ER triage doctor by RN are reflective of an initial nursing assessment, however, is not reflective of my full history and physical exam that was personally taken and clarified. Consequentially, this preceding description of symptoms, which may include the patient's categorized chief complaint in the EMR, do not reflect my personal clinical impression, and the ultimate description of history of present illness and patient stated complaints should be deferred to this section of the note. Unless stated otherwise or congruent with this section of the note, additional signs, symptoms, or incongruence should be interpreted as inaccurate with my clinical impression. Related Data Home Medications ?Medication ?Instructions ?Recorded ?Confirmed acetaminophen 500 mg tablet 500 mg PO Q6HP PRN Mild Pain 02/28/18 02/19/25 (Scale Score 1-4) anastrozole 1 mg tablet 1 mg PO DAILY breast cancer 02/28/18 02/19/25 atorvastatin 40 mg tablet 40 mg PO DAILY Cholesterol 02/28/18 02/19/25 carvedilol 12.5 mg tablet 12.5 mg PO BID Hypertension 02/28/18 02/19/25 loperamide 2 mg capsule 2 mg PO Q4HP PRN Diarrhea 07/11/18 02/19/25 baclofen 10 mg tablet 10 mg PO TID muscle spasms 04/11/19 02/19/25 pantoprazole 20 mg tablet,delayed 20 mg PO DAILY GERD 04/11/19 02/19/25 release (Protonix) clopidogrel 75 mg tablet 75 mg PO DAILY 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 02/04/20 02/19/25 multivitamin with minerals 1 each PO DAILY Supplement 05/06/21 02/19/25 ondansetron 4 mg disintegrating 4 mg PO Q6HP PRN Nausea And 07/28/22 02/19/25 tablet Vomiting trazodone 150 mg tablet 300 mg PO HS SLEEP 07/28/22 02/19/25 cholecalciferol (vitamin D3) 25 25 mcg PO BID 10/04/23 02/19/25 mcg (1,000 unit) tablet (Vitamin D3) cyanocobalamin (vitamin B-12) 1,000 mcg PO DAILY 10/04/23 02/19/25 1,000 mcg tablet (Vitamin B-12) fluticasone furoate 100 1 inh inhalation DAILY 10/04/23 02/19/25 mcg-vilanterol 25 mcg/dose inhalation powder (Breo Ellipta) fluticasone propionate 50 1 spray intranasal BID 10/04/23 02/19/25 mcg/actuation nasal spray,suspension magnesium oxide 400 mg PO BID 10/04/23 02/19/25 rivaroxaban 15 mg tablet (Xarelto) 15 mg PO DAILY 10/04/23 02/19/25 ascorbic acid (vitamin C) 500 mg 500 mg PO BID Supplement 10/16/23 02/19/25 tablet (Vitamin C) calcitriol 0.25 mcg capsule 0.25 mcg PO DAILY 03/19/24 02/19/25 dextromethorphan-guaifenesin 10 10 ml PO Q4H PRN 07/24/24 02/19/25 mg-100 mg/5 mL oral liquid (Guaiasorb DM) diphenhydramine HCl 25 mg tablet 25 mg PO BID PRN 07/24/24 02/19/25 (Allergy (diphenhydramine)) duloxetine 30 mg capsule,delayed 30 mg PO DAILY 07/24/24 02/19/25 release duloxetine 60 mg capsule,delayed 60 mg PO DAILY 07/24/24 02/19/25 release artifi.tears(hypromellose)(PF) 1.7 1 drp Eye-Both BID PRN 10/02/24 02/19/25 % eye drops with applicator ferrous sulfate 325 mg (65 mg 325 mg PO BID Supplement 10/02/24 02/19/25 iron) tablet (iron) d-mannose 500 mg capsule (AZO 2,000 mg PO DAILY 02/19/25 02/19/25 D-Mannose) estradiol 0.01% (0.1 mg/gram) 1 g vaginal .3xwk 02/19/25 02/19/25 vaginal cream insulin aspart U-100 100 unit/mL 1 sliding scale dose SQ 02/19/25 02/19/25 (3 mL) subcutaneous pen USEASDIRECTD insulin glargine 100 unit/mL (3 70 unit SQ BID 02/19/25 02/19/25 mL) subcutaneous pen (Basaglar KwikPen U-100 Insulin) ipratropium 0.5 mg-albuterol 3 mg 3 ml inhalation Q6H PRN 02/19/25 02/19/25 (2.5 mg base)/3 mL nebulization soln mirabegron 50 mg tablet,extended 50 mg PO DAILY 02/19/25 02/19/25 release 24 hr (Myrbetriq) trospium 20 mg tablet 20 mg PO BID 02/19/25 02/19/25 Previous Rx's ?Medication ?Instructions ?Recorded azelastine 137 mcg (0.1 %) nasal 2 spray intranasal BID allergy 09/13/23 spray symptoms #30 mL pregabalin 50 mg capsule 50 mg PO BID nerve pain #60 caps 09/27/24 oxycodone-acetaminophen 5 mg-325 1 tab PO BID PRN Pain (Scale Score 01/16/25 mg tablet (Percocet) 7-10) #60 tabs fentanyl 12 mcg/hr transdermal 1 patch transdermal Q72H #10 02/07/25 patch patches Allergies Allergy/AdvReac Type Severity Reaction Status Date / Time bupropion (From WELLBUTRIN) Allergy Unknown Unknown Verified 02/19/25 10:37 allergy reaction hydrocodone (From LORTAB) Allergy Unknown Unknown Verified 02/19/25 10:37 allergy reaction Sulfa (Sulfonamide Allergy Unknown Unknown Verified 02/19/25 10:37 Antibiotics) (SULFA allergy (SULFONAMIDE ANTIBIOTICS)) reaction tramadol (From ULTRAM) Allergy Unknown Unknown Verified 02/19/25 10:37 allergy reaction SURGICAL TAPE Allergy Unknown Unknown Uncoded 10/15/24 13:43 allergy reaction PFSH PFSH Disclaimer: The information contained in this section may have been updated after the patient was seen, as this information can be updated by other users. 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, left Menopausal vasomotor syndrome Otogenic otalgia of right ear Otogenic otalgia of left ear Fibromyalgia, primary Gastro-esophageal reflux disease without esophagitis 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[place] coronary artery without angina pectoris Other idiopathic peripheral autonomic neuropathy Chronic pain syndrome Anxiety disorder, unspecified Major depressive disorder, recurrent, unspecified Hypertensive heart disease without heart failure Need for assistance at home and no other household member able to render care Age-related osteoporosis without current pathological fracture Trochanteric bursitis, right hip Unilateral primary osteoarthritis, right hip Obstructive sleep apnea (adult) (pediatric) Unspecified diastolic (congestive) heart failure Iron deficiency anemia secondary to blood loss (chronic) Right carotid artery occlusion Status post stent procedure, (patient own report, [facility], 10 years ago) BMI 39.0-39.9,adult Biventricular CHF (congestive heart failure) PVC (premature ventricular contraction) Edema Chronic hypoxemic respiratory failure Stopped smoking with greater than 30 pack year history ARA and COPD overlap syndrome Acute respiratory failure with hypoxia and hypercapnia CHF exacerbation History of smoking 30 or more pack years last CT lung 01/13 Foot pain History of breast cancer Abnormal ECG COPD (chronic obstructive pulmonary disease) CVA (cerebral vascular accident) 12/01/22: History of R-ICA stenosis, s/p stent procedure, R-MCA cva with residual left spastic hemiparesis. CAD (coronary artery disease) PCI/CLIFF 2017. Last cardiac cath, Aug 2022, with patent stents>medical management. Surgical History Presence of internal carotid stent History of right shoulder replacement Status post left knee replacement History of total left knee replacement History of right mastectomy breast CA Family History Other Black lung disease Diabetes Hypertension Social History Smoking Status: Former smoker tobacco type: cigarettes packs per day: 1 smoking status stop date: 06/2022 alcohol intake: never substance use type: denies use current occupational status: disabled Travel in the last 8 weeks?: None household members: other housing: skilled nursing caffeine: Yes Have you lived/traveled outside [place] in past 30 days?: No Contact w/someone who lives/traveled outside US past 30 days?: No Exposure to someone with infectious disease in past 14 days?: No Do you have a fever (greater than 100.4 F or 38 C)?: No Have you tested positive for COVID-19?: No Exposed to someone with COVID-19 in past 14 days?: No Do you have a sore throat?: No Do you have a cough?: No Do you have any weakness?: No Do you have any diarrhea?: No Are you experiencing any unusual bleeding?: No Do you have any muscle aches/pain?: No Do you have any abdominal pain?: No Are you experiencing loss of taste or smell?: No Other 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 Have you received the Flu Vaccine for this season: No Have you received the Pneumonia Vaccine: Yes (06/29/19, 11/26/24) ROS Obtained: Yes Systems reviewed as appropriate & no additional complaints except as documented Physical Exam General General appearance: alert Head Head exam: atraumatic and normocephalic Eye Eye exam: Present PERRL and EOMI ENT ENT exam: Present mucous membranes moist Neck Neck exam: Present normal inspection Chest Chest inspection: Present normal inspection and symmetric chest wall rise Respiratory Respiratory exam: Present wheezes (Mild expiratory phase wheezing with good air movement); Absent normal lung sounds bilaterally or respiratory distress Cardiovascular Cardiovascular exam: Present regular rate and normal rhythm Abdominal Exam Abdominal exam: Present soft; Absent tenderness Extremities Exam Extremities exam: Present other (Left lower extremity AKA) Neurological Exam Neurological exam: Present alert and other (Left upper extremity contracted cannot move against gravity) Psychiatric Psychiatric exam: Present normal affect Skin Skin exam: Present warm and dry Medical Decision Making Medical Records Screening: Per USPSTF and CDC recommendations, given the prevalence of disease in our region, it is our hospital?s policy to screen for HIV and viral Hepatitis for all patients aged 18 and over and those with ongoing risk factors. Jordi Inquiry Pt receiving controlled substance: No Vital Signs: 02/22/25 10:59 02/22/25 11:00 02/22/25 11:05 Temperature 98.5 F Temperature Source Oral Pulse Rate 78 78 Pulse Rate [Right] 80 Respiratory Rate 14 Blood Pressure 121/65 130/67 Blood Pressure [Right Arm] 121/65 Blood Pressure Mean [Right Arm] 83 Blood Pressure Source Blood Pressure Source [Right Arm] Automatic Cuff Blood Pressure Position Blood Pressure Position [Right Arm] Supine 02 Sat by Pulse Oximetry 98 100 96 Oxygen Delivery Method Nasal Cannula Nasal Cannula Room Air Oxygen Flow Rate (LPM) 2 2 02/22/25 11:27 02/22/25 11:30 02/22/25 12:00 Temperature 98.5 F Temperature Source Oral Pulse Rate 80 77 80 Pulse Rate [Right] Respiratory Rate 14 9 L 10 L Blood Pressure 121/65 119/59 L 123/68 Blood Pressure [Right Arm] Blood Pressure Mean [Right Arm] Blood Pressure Source Automatic Cuff Blood Pressure Source [Right Arm] Blood Pressure Position Supine Blood Pressure Position [Right Arm] 02 Sat by Pulse Oximetry 96 96 97 Oxygen Delivery Method Room Air Nasal Cannula Nasal Cannula Oxygen Flow Rate (LPM) 2 2 02/22/25 12:15 02/22/25 13:00 02/22/25 13:30 Temperature Temperature Source Pulse Rate 79 81 79 Pulse Rate [Right] Respiratory Rate 11 L 9 L Blood Pressure 111/69 123/71 Blood Pressure [Right Arm] Blood Pressure Mean [Right Arm] Blood Pressure Source Blood Pressure Source [Right Arm] Blood Pressure Position Blood Pressure Position [Right Arm] 02 Sat by Pulse Oximetry 96 98 99 Oxygen Delivery Method Nasal Cannula Nasal Cannula Oxygen Flow Rate (LPM) 2 2 02/22/25 14:00 02/22/25 14:30 Temperature Temperature Source Pulse Rate 85 76 Pulse Rate [Right] Respiratory Rate 9 L 9 L Blood Pressure 126/80 96/64 L Blood Pressure [Right Arm] Blood Pressure Mean [Right Arm] Blood Pressure Source Blood Pressure Source [Right Arm] Blood Pressure Position Blood Pressure Position [Right Arm] 02 Sat by Pulse Oximetry 100 98 Oxygen Delivery Method Nasal Cannula Nasal Cannula Oxygen Flow Rate (LPM) 2 2 Lab Data Lab Results 02/22/25 11:11: WBC 6.4 D, RBC 4.08 L, Hgb 10.6 L, Hct 33.8 L, MCV 82.8, MCH 26.0 L, MCHC 31.4 L, RDW 14.7, Plt Count 294, MPV 9.9, Neut % (Auto) 77.4, Lymph % (Auto) 12.9, [place] % (Auto) 5.8, Eos % (Auto) 3.1, Baso % (Auto) 0.3, Neut # (Auto) 4.9, Lymph # (Auto) 0.8, [place] # (Auto) 0.4, Eos # (Auto) 0.2, Baso # (Auto) 0.0, Sodium 124 L, Potassium 5.2 H, Chloride 83 L, Carbon Dioxide 28, Anion Gap 18.2 H, BUN 44 H, Creatinine 2.40 H, Estimated Creat Clear 31, Estimated GFR 20 L, Est GFR ( Amer) 25 L, Glucose 256 H D, Calcium 9.3, Magnesium 2.4 H, Total Bilirubin 0.3, AST 24, ALT 24, Alkaline Phosphatase 182 H, Troponin I 0.02, NT-Pro-B Natriuret Pep 1900 H, Total Protein 8.1, Albumin 4.2, Globulin 3.9 H, Albumin/Globulin Ratio 1.1, Acetone Level None detected 02/22/25 12:18: VBG pH 7.29 L, VBG pCO2 45.9, VBG pO2 100.3 H, VBG HCO3 21.4 L, VBG Total CO2 22.8 L, VBG O2 Saturation 97.2 H, VBG Base Excess -5.2 L, VBG Lactic Acid 1.3 02/22/25 13:10: Urine Color Yellow, Urine Appearance Clear, Urine pH 6.0, Ur Specific [place] <= 1.005, Urine Protein 1+ A, Urine Glucose (UA) Negative, Urine Ketones Negative, Urine Blood 3+ A, Urine Nitrate Negative, Urine Bilirubin Negative, Urine Urobilinogen 0.2, Ur Leukocyte Esterase 3+ A, Urine RBC 50-100, Urine WBC Tntc, Ur Squamous Epith Cells 20-50, Urine Bacteria 1+ 02/22/25 11:11 02/22/25 11:11 Orders (Tests/Meds): ED MEDICATIONS Generic Name Dose Route Start Last Admin Trade Name Jennifer PRN Reason Stop Dose Admin Azithromycin 500 mg/ Sodium 250 mls @ 250 mls/hr 02/22/25 14:30 02/22/25 14:32 Chloride IV 02/22/25 15:29 250 mls/hr ONCE ONE Administration Discontinued Medications Generic Name Dose Route Start Last Admin Trade Name Jennifer PRN Reason Stop Dose Admin Albuterol/Ipratropium 6 ml 02/22/25 12:28 02/22/25 13:18 Ipratropium/Albuterol 3 Ml Neb IH 02/22/25 12:29 6 ml ONCE ONE Administration Magnesium Sulfate 2 gm in 50 mls @ 50 mls/hr 02/22/25 12:28 02/22/25 13:18 Magnesium Sulfate 2gm/50ml Premix IV 02/22/25 13:27 50 mls/hr ONCE ONE Administration Ceftriaxone Sodium 1 gm/ 50 mls @ 100 mls/hr 02/22/25 14:19 02/22/25 14:26 Sodium Chloride IV 02/22/25 14:48 100 mls/hr ONCE ONE Administration ORDERS Category Date Time Status CT abdomen pelvis w con Stat Cat Scan 02/22/25 12:[address] angio chest PE protocol Stat Cat Scan 02/22/25 12:[address] head/brain wo con Stat Cat Scan 02/22/25 12:18 Completed CXR --portable [XR chest portable] Stat Exams 02/22/25 12:20 Completed POCUS Point of Care (ER Only) Stat Exams 02/22/25 12:20 Taken Acetone, Serum (Rapid) Stat Lab 02/22/25 11:11 Completed BNP [NT Pro Brain Natriuretic Pep.] Stat Lab 02/22/25 11:11 Completed CBC w/Auto Diff [Complete Blood Count Auto Diff] Stat Lab 02/22/25 11:11 Completed CMP [Comprehensive Metabolic Panel] Stat Lab 02/22/25 11:11 Completed MG [Magnesium] Stat Lab 02/22/25 11:11 Completed Trop I [Troponin I] Stat Lab 02/22/25 11:11 Completed Troponin I Q3H Lab 02/22/25 15:30 Ordered Troponin I Q3H Lab 02/22/25 18:30 Ordered UA [Urinalysis and Microscopic] Stat Lab 02/22/25 13:10 Completed Blood Culture Stat Micro 02/22/25 13:18 Received Urine Culture Stat Micro 02/22/25 13:10 Received VBG [Venous Blood Gas] Stat RT 02/22/25 12:18 Completed ECG Data Tracing #1: Independently interpreted by me rate is 80, rhythm is regular, axis is leftward deviated, no ST elevation in anatomical contiguous leads, QTc 460. Medical Decision Narrative: In summary patient is a 64-year-old female past medical history described above who presents emergency department for evaluation of shortness of breath encephalopathy and outside facility reported hyponatremia. Patient is hemodynamically stable nontoxic-appearing upon arrival, afebrile saturating greater than 88% on 2 L nasal cannula with no oxygen baseline. Originally she was difficult to arouse however when she was awake states that she is a heavy sleeper with sleep apnea and was alert and oriented. Has nontender abdomen and no reports of chest pain. Differential is broad and includes metabolic encephalopathy, urinary tract infection, atypical ACS, pneumonia, hypercapnic respiratory failure, among others. Workup will be conducted with hematologic labs VBG chest x-ray EKG troponin CT of the head, CTA chest, CT abdomen pelvis IV contrast urinalysis. Initial sepsis bolus was considered but patient does not have tachycardia or fever and is hypervolemic at baseline will be deferred. DuoNebs will be administered without steroids to prevent worsening of volume overload and her wheezing is mild without significantly restricted air movement. IV magnesium will also be administered. Initial hematologic labs reviewed by me no significant leukocytosis, chronic anemia that is stable largely compensated acid-base status with mild acidemia but normal CO2 no elevated lactate, creatinine is 2.4, minimal elevated hyperkalemia that is nonactionable, glucose is 256 with mildly elevated anion gap for which serum acetone will be ordered. Serum acetone negative. Urinalysis interpreted by me and consistent with iman infection. There is contamination with squamous cells however patient has significant amount of redundant tissue and this was during Parekh catheter placement requiring multiple nurses urine draining at bedside is frankly cloudy and consistent with infection. Noncon CT of the head multiple chronic infarcts, no acute intracranial process. CT chest heterogenous densities noted in the thyroid no acute abnormality in the chest with mild cardiomegaly. Thyroid nodules are known to the patient and are being investigated. Volume resuscitation will continue to be deferred given that she has 1+ pitting edema in her right lower extremity elevated BNP. [id number] ultrasound at bedside shows mildly decreased ejection fraction. CT of the abdomen pelvis shows punctate calcifications in both kidneys mild bilateral hydronephrosis and hydroureter without definite calcifications with moderate bladder wall thickening. This makes sense with her urinary tract infection however her cause of her hydroureter bilaterally is unknown. I discussed the case with hospital medicine regarding management this patient does not have any single problem that exceeds the capabilities at this facility but in totality patient will benefit from expert consultation and the entire clinical picture does exceed the capabilities of this facility, I agree with this. Given this the case was discussed with [facility] who graciously accepted patient for transfer for continued evaluation at this time. [employer] Set Up Operator disclaimer Much of this encounter note is an electronic junior database administrator spoken language to printed text. Electronic junior database administrator of the spoken language may permit errors. Although I have reviewed the note, some errors may still exist. Critical Care Critical Care Time Critical Care Time: No
[2025-02-22 12:26] LABS: Albumin Level 4.2 g/dl (3.5-5.0); Chloride 83 mmol/L (98-107)
[2025-02-22 12:27] LABS: Potassium 5.2 mmoL/L (3.5-5.1); Sodium 124 mmol/L (136-145)
[2025-02-22 12:29] LABS: Alanine Aminotransferase 24 U/L (12-78); Anion Gap 18.2 mEq/L (5-15); Aspartate Amino Transferase 24 U/L (14-36); Blood Urea Nitrogen 44 mg/dl (7-17); Carbon Dioxide 28 mmol/L (22.0-30.0); Creatinine Clearance Estimated 31 mL/min (50-200); Creatinine,Serum 2.40 mg/dl (0.52-1.04); Estimated Glomerular Filt Rate 20 ml/min (>60); GFR (African American) 25 ML/MIN (>60)
[2025-02-22 12:30] LABS: Albumin/Globulin Ratio 1.1 (1.1-1.8); Alkaline Phosphatase 182 U/L (38-126); Bilirubin,Total 0.3 mg/dl (0.2-1.3); Calcium 9.3 mg/dl (8.4-10.2); Globulin 3.9 g/dL (1.3-3.2); Glucose 256 mg/dl (74-100); Magnesium 2.4 mg/dl (1.6-2.3); Total Protein,Serum 8.1 g/dl (6.3-8.2)
--- NOTE | 2025-02-22 12:35 | PC.NURSE ---
pt to rad @ this time
[2025-02-22 12:39] LABS: NT Pro Brain Natriuretic Pep. 1900 pg/mL (0-125)
[2025-02-22 12:39] LABS: Lactate Venous 1.3 mmol/L (0.4-2.0); VBG HCO3 21.4 mmol/L (23-30); VBG PCO2 45.9 mmol/L (35-51); VBG PH 7.29 mmol/L (7.31-7.41); VBG PO2 100.3 mmol/L (28-40)
[2025-02-22 12:41] LABS: Troponin I 0.02 ng/ml (0.00-0.034)
[2025-02-22] MEDS: IPRATROPIUM/ALBUTEROL 3 ML NEB 6 ML IH (13:18)
[2025-02-22] MEDS: MAGNESIUM SULFATE IN WATER 2 GM/50 ML PIGGYBACK IV (13:18)
[2025-02-22 13:49] LABS: Microscopic, Urine URINE MICROSCOPIC (MICROSCOPIC)
[2025-02-22 13:55] LABS: Acetone, Serum (Rapid) None Detected (None Detect)
[2025-02-22 13:56] LABS: Bilirubin,Urine Negative (Negative); Color,Urine YELLOW (Yellow); Glucose,Urine (UA) Negative (Negative); Ketones,Urine Negative (Negative); Leukocyte Esterase,Urine 3+ (Negative); PH,Urine 6.0 (5.0-8.5); Protein,Urine 1+ (Negative); Specific Gravity, Urine <= 1.005 (1.005-1.030); Urobilinogen,Urine 0.2 EU/dl (0.2)
[2025-02-22 14:09] LABS: Bacteria,Urine 1+ /lpf; RBC,Urine 50-100 #/hpf (0-3); Squamous Epithelial Cell,Urine 20-50 #/hpf (0-5); WBC,Urine TNTC #/hpf (0-3)
[2025-02-22] MEDS: CEFTRIAXONE 1 GM 1 GM in 0.9 % SODIUM CHLORIDE 50 ML IV (14:26)
[2025-02-22] MEDS: AZITHROMYCIN 500 MG in 0.9 % SODIUM CHLORIDE 250 ML 250 MG IV (14:32)
--- NOTE | 2025-02-22 14:49 | PC.NURSE ---
called [facility] transfer for possible pt transfer for COPD exacerbation, hyponatremia, UTi, CKD. transfer center states that they will call back with physician.
--- NOTE | 2025-02-22 14:51 | PC.NURSE ---
call made to [facility] to [place] and get a disc made
--- NOTE | 2025-02-22 14:56 | PC.NURSE ---
staff from [facility] called to check on pt again, gave nurse POC for pt.
--- NOTE | 2025-02-22 14:58 | PC.NURSE ---
ANGEL BENSON speaking with [facility] at this time
--- NOTE | 2025-02-22 15:17 | PC.NURSE ---
report called to dorys at [facility]
--- NOTE | 2025-02-22 15:49 | PC.NURSE ---
called EMS for transfer and talked to Konrad. he advised they would be there as soon as other truck gets back in [facility].
--- NOTE | 2025-02-22 17:12 | PC.NURSE ---
Emptied cath bag with 550ml output.
== END 2025-02-22 17:17 | disposition short-term general hospital (02) ==
PROVIDERS: Emergency Provider Emergency Medicine
DX: J44.1 Chronic obstructive pulmonary disease with (acute) exacerbation (principal); N39.0 Urinary tract infection, site not specified; N13.30 Unspecified hydronephrosis; N13.4 Hydroureter; E87.21 Acute metabolic acidosis; E87.1 Hypo-osmolality and hyponatremia; R53.83 Other fatigue; E87.8 Other disorders of electrolyte and fluid balance, not elsewhere classified; I11.0 Hypertensive heart disease with heart failure; I50.9 Heart failure, unspecified; Z86.73 Personal history of transient ischemic attack (TIA), and cerebral infarction without residual deficits; Z87.891 Personal history of nicotine dependence
CPT/HCPCS: 70450; 71045; 71275; 74177; 80053; 81001; 82009; 82803; 83735; 83880; 84484; 85025; 87040; 87086; 93005; 96365; 96367; 99285; J0456; J0696; J3475; J7050

== ENCOUNTER 2025-03-04 05:32 | Emergency (ER) | payer MEDICARE, MEDICAID, SELFPAY ==
--- OUTSIDE RECORDS SUMMARY | 2024-12-20 09:20 | XMS_ITS | Encounter Summary ---
Author Organization [facility] Address [address] [place] [address] Care Team Providers Care Computer Repairer Name Role Phone Daniel Barba MD Primary Care Provider [phone] Cayla Erazo APRN, DNP Unavailable [phone] Vignesh Pickens MD Primary Care Provider [phone] Reason for Referral * Imaging (Routine) - Closed Specialty Diagnoses / Procedures Referred By Clara stoner Referred To Contact Radiology Diagnoses Gross hematuria Procedures CT Urogram Cayla Erazo APRN, DNP [address] [address] Phone: tel: fax: Referral ID Status Reason Start Date Expiration Date Visits Re quested Visits Authorized [id number] Closed 12/25/2024 06/26/2026 1 1 * Other Medical (Routine) - Authorized Specialty Diagnoses / Procedures Referred By Clara stoner Referred To Contact Urology Diagnoses Gross hematuria Procedures Cysto- Urology Cayla Erazo APRN, DNP [address] [address] Phone: tel: fax: Referral ID Status Reason Start Date Expiration Date V isits Requested Visits Authorized [id number] Authorized 12/25/2024 06/26/2026 1 1 * Imaging (Routine) - Authorized Specialty Diagnoses / Procedures Referred By Clara stoner Referred To Contact Radiology Diagnoses Hydronephrosis, unspecified hydronephrosis type Procedures US Renal Complete Cayla Erazo APRN, DNP [address] [address] Phone: tel: fax: Referral ID Status Reason Start Date Expiration Date V isits Requested Visits Authorized [id number] Authorized 12/20/2024 06/21/2026 1 1 Reason for Visit * Reason Comments Female Incontinence * Other Medical (Routine) - Closed Specialty Diagnoses / Procedures Referred By Clara stoner Referred To Contact Urology Diagnoses Hydronephrosis, unspecified hydronephrosis type Urinary retention Procedures UDS Cayla Erazo APRN, DNP [address] [address] Phone: tel: fax: Referral ID Status Reason Start Date Expiration Date Visits Re quested Visits Authorized [id number] Closed 11/08/2024 05/10/2026 1 1 Encounter Details Date Type Department Care Team (Latest Contact Info) Description 12/20/2024 9:20 AM EDT Office Visit [facility] [address] [place] [address] Cayla Erazo APRN, DNP [address] [place] [phone] Recurrent UTI (Primary Dx); Hydronephrosis, unspecified hydronephrosis type; Urinary retention; Post-menopausal atrophic vaginitis; Gross hematuria Social History Tobacco Use Types Packs/Day Years Used Date Smoking Tobacco: Former Cigarettes Q uit: 07/22/2022 Passive Smoke Exposure: Past Smokeless Tobacco: Never Alcohol Use Standard Drinks/Week Comments Yes 0 (1 standard drink = 0.6 oz pur e alcohol) Humiliation, Afraid, Rape, and Kick questionnair e Answer Date Recorded Within the last year, have y ou been afraid of your partner or ex-partner? No 08/20/2024 Within the last year, have y ou been humiliated or emotionally abused in other ways by your partner or ex-partner? No Within the last year, have y ou been kicked, hit, slapped, or otherwise physically hurt by your partner or ex-partner? No 08/20/2024 Within the last year, have y ou been raped or forced to have any kind of sexual activity by your partner or ex-partner? No 08/20/2024 PHQ-2 Answer Date Recorded Patient Health Questionnaire-2 Score 0 12/20/2024 Hunger Vital Sign Answer Date Recorded Within the past 12 months, y ou worried that your food would run out before you got the money to buy more. Never true 08/20/20 24 Within the past 12 months, t he food you bought just didn't last and you didn't have money to get more. Never true 08/20/2024 PRAPARE - Transportation Answer Date Re corded In the past 12 months, has l ack of transportation kept you from medical appointments or from getting medications? No 07/24 In the past 12 months, has l ack of transportation kept you from meetings, work, or from getting things needed for daily living? No 08/20/2024 PHQ-9 Answer Date Recorded Patient Health Questionnaire-9 Score 13 09/26/2024 Housing Stability Vital Sign Answer Anish e Recorded In the last 12 months, was t here a time when you were not able to pay the mortgage or rent on time? No 08/20/2024 In the past 12 months, how m any times have you moved where you were living? 0 08/20/2024 At any time in the past 12 m [facility], were you homeless or living in a usp (including now)? No 08/20/2024 CAGE ASSESSMENT Answer Date Recorded Cage unable to access Not on file 08/15/2024 Maximum number of drinks you had on a given occasion in the last month? 0 drinks 08/15/2024 How many alcoholic Beverages do you typically drink in a week? 0 - 7 per week 08/15/2024 Have you ever felt you should CUT down on your d rinking? 0 08/15/2024 Have you been ANNOYED by peo ple criticizing your drinking? 0 08/15/2024 Have you felt GUILTY about your drinking? 0 08/15/2024 Have you had a drink first t rodríguez in the morning (EYE-ASSISTANT TO THE DIRECTOR) to steady your nerves or to get rid of a hangover? 0 08/15/2024 CAGE Questionnaire Score 0 024 Utilities Answer Date Recorded In the past 12 months has e [employer], [employer], oil, or water [place] threatened to shut off services in your home? No 08/20/2024 PHQ-2A Answer Date Recorded Depression Risk 3 09/13/2022 PHQ-9A Answer Date Recorded Depression Risk Score 8 09/13/2022 Comments No Sex and Gender Information Value Date Recorded Sex Assigned at Not on file Legal Sex Female 6:18 PM EDT Gender Identity Not on file Sexual Orientation Not on file documented as of this encounter Last Filed Vital Signs Vital Sign Reading Time Taken Comments Blood Pressure - - Pulse - - Temperature - - Respiratory Rate - - Oxygen Saturation - - Inhaled Oxygen Concentration - - Weight 85.7 kg (189 lb) 12/20/2024 9:48 AM EDT Height 162.6 cm (5' 4 ) 12/20/2024 9:48 AM EDT Body Mass Index 32.44 12/20/2024 9:48 AM EDT documented in this encounter Functional Status * Over the past 2 weeks, how often have you been bothered by any of the following problems? Question Answer Date of Assessment Author Little interest or pleasure in doing things Not at all 12/20/2024 9:49 AM EDT Mattie Arroyo LPN Feeling down, depressed, or hopeless Not at all 12/20/2024 9:49 AM EDT Mattie Arroyo LPN Patient Health Questionnaire-2 Score 0 12/20/2024 9:49 AM EDT Mattie Arroyo LPN documented as of this encounter Miscellaneous Notes * Progress Notes - Cayla Erazo, WELDING SPECIALIST, DNP - 12/20/2024 9:20 AM EDTAssociated Order(s): UDS Pre-Procedure Diagnose(s): Hydronephrosis, unspecified hydronephrosis type; Urinary retention Post-Procedure Diagnose(s): Hydronephrosis, unspecified hydronephrosis type; Urinary retention [facility] Note CC: Female Incontinence HPI: Eileen Tovar is a 64 y.o. F who was initially evaluated in Sep 2024 for diagnosis ofbilateral hydronephrosis in Jul 2024 thought to be 2/2 severe constipation. She was treated for UTIwhile inpatient at [facility] and had improvement in renal function and hydronephrosis with indwelling Parekh catheter that was removed prior to discharge to [facility] in [place]. She is a limited historian, presented in a wheelchair, and is accompanied by a staff member from [facility] without further information provided. She was most bothered with continued urethral pain that only occurs with voiding. Since discharge she reported a voiding frequency of every hours, moderate urgency, nightly large volume enuresis as she does not awaken to void, voided into Depends 50% of the time as she requires 1-2person assist to get to bedside commode, and long standing daily varying volume DOUGLAS with coughing, laughing, sneezing, position changes that requires several Depends per day. She also reportedly stooling into her Depends a few times a week. She drinks 4-32 oz cups of water daily. She has T2DM and is unsure of most recent A1c. 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 She also has PVD, COPD, SD, and DVT treated with 2 blood thinners. She denies ever being impacted with stool before and reportedly sees an outside urologist/sql database developer who presents to the SNF, but could not recall evaluation/treatment specifics. She has a left AKA for infection in 11/2023 and a right mastectomy for breast cancer that is currently treated with anastrozole and did not receive chemo/radiation. Bilateral hydronephrosis: -Sep 2024 CT imaging reviewed with Dr. Pinky Chapman who suggested starting Ach/B3 agonist for thick walled bladder and bilateral hydronephrosis which is likely chronic in nature given her several chronic comorbidities and complicate all aspects of care -Sep 2024 timed voiding and trospium, BMP interim improvement with Cr 1.74 and GFR 32.2 (Aug 2024 Cr 1.83 and GFR 30.3) -Oct 2024 BMP improved with Cr 1.60 and GFR 35.6 and ROMEO with persistent bilateral moderate hydronephrosis with empty bladder -November 2024: ROMEO resulted with grossly similar bilateral diffuse cortical thinning and moderate hydronephrosis without stones and a stable left interpolar 1.2 cm simple cyst. Pprobable small capacitybladder with similar circumferentially thickened appearing canchola, similar to prior ultrasound and CT. RUTIs: -Sep 2024 vaginal estrogen cream and d-mannose, not a Hiprex candidate due to decreased GFR She returns today for VUDS for evaluation of bilateral hydronephrosis. She again presents in a wheelchair, accompanied by a SNF employee and continues to be a limited historian. She denies interim UTIs with use of vaginal estrogen cream 3x/week and daily d-mannose 2,000 mg. She continues to void into her Depends more than once an hour and denies UI with continued use of trospium. She recently used Cefdinir. PMHx: Problem List[1] 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[2] PSHx: Surgical History[3] FHx: Family History[4] SHx: Social History[5] OBHx: OB History No obstetric history on file. ROS: See HPI Physical Exam: There were no vitals filed for this visit. Manager Enterprise Content Management present during entire exam General: Pleasant, alert, in no acute distress, well appearing Pulmonary: no increased work of breathing or signs of respiratory distress. Abdomen: soft, flat, Musculoskeletal: Left AKA, travels by wheelchair, 2 person assist Skin: Warm, dry, and intact Neurologic: perineal sensation to light tough intact and symmetric Psychiatric: oriented to person, place, and time. Mood and affect appeared normal. Results/Data: Recent Results (from the past week) Basic Metabolic Panel, Plasma Collection Time: 12/20/24 11:54 AM Result Value Ref Range Glucose, Plasma 226 (H) 74 - 99 mg/dL BUN, Plasma 34 (H) 8 - 23 mg/dL Creatinine, Plasma 1.82 (H) 0.60 - 1.10 mg/dL BUN/Creatinine Ratio 19 Sodium, Plasma 134 (L) 136 - 145 mmol/L Potassium, Plasma 4.8 3.6 - 4.9 mmol/L Chloride, Plasma 94 (L) 97 - 107 mmol/L CO2, Plasma 28 22 - 29 mmol/L Anion Gap 12 6 - 16 mmol/L Total Calcium, Plasma 10.0 8.9 - 10.2 mg/dL eGFRcr 30.5 mL/min/1.73m*2 Urine Culture - Clinic Collect Collection Time: 12/20/24 2:33 PM Specimen: Urine, Cath In and Out Result Value Ref Range Culture <10,000 CFU/mL Mixed urogenital, fecal, or skin jesus present. Labs: Lab Results Component Value Date HGBA1C 8.8 (H) 03/05/2014 Lab Results Component Value Date GLUCOSE 226 (H) 12/20/2024 CALCIUM 10.0 12/20/2024 NA 134 (L) 12/20/2024 K 4.8 12/20/2024 CO2 28 12/20/2024 CL 94 (L) 12/20/2024 BUN 34 (H) 12/20/2024 CREATININE 1.82 (H) 12/20/2024 EGFR 30.5 12/20/2024 Recent Results (from the past week) Basic Metabolic Panel, Plasma Collection Time: 12/20/24 11:54 AM Result Value Ref Range Glucose, Plasma 226 (H) 74 - 99 mg/dL BUN, Plasma 34 (H) 8 - 23 mg/dL Creatinine, Plasma 1.82 (H) 0.60 - 1.10 mg/dL BUN/Creatinine Ratio 19 Sodium, Plasma 134 (L) 136 - 145 mmol/L Potassium, Plasma 4.8 3.6 - 4.9 mmol/L Chloride, Plasma 94 (L) 97 - 107 mmol/L CO2, Plasma 28 22 - 29 mmol/L Anion Gap 12 6 - 16 mmol/L Total Calcium, Plasma 10.0 8.9 - 10.2 mg/dL eGFRcr 30.5 mL/min/1.73m*2 Urine Culture - Clinic Collect Collection Time: 12/20/24 2:33 PM Specimen: Urine, Cath In and Out Result Value Ref Range Culture <10,000 CFU/mL Mixed urogenital, fecal, or skin jesus present. Cultures: Lab Results Component Value Date URINECX 12/20/2024 <10,000 CFU/mL Mixed urogenital, fecal, or skin jesus present. Imagin10/05/23: ROMEO at [facility] resulted moderate cortical thinning of kidneys and no hydronephrosis or stone bilaterally. 1.5 cm cyst in left lower pole. Findings compatible with medical renal disease. No obstructive uropathy. 07/26/24: OSH CT stone resulted with significant perinephritic fat stranding that appears more conspicuous relative to prior exam. Bilateral 2 to 3 mm punctate nonobstructive renal calculi, grossly similar to prior. Mild hydronephrosis and significant degree of ureteral wall thickening and periureteral fat stranding which appears increased relative to prior exam. Bilateral hydroureter is grossly similar. No definite loculated collections within the limitations of the study. Mild sigmoid diverticulosis without overt evidence of diverticulitis. Conspicuous number of retroperitoneal lymph nodes most notable in the aortocaval space. For example, the 11 mm short axis lymph node as seen on series 3, image 148. Circumferential bladder wall thickening with surrounding inflammatory changes and fat stranding. IMPRESSION: 1. Findings are suggestive of acute pyelonephritis with bilateral hydroureteronephrosis with associated inflammatory changes that appears increased relative to recent exam. 2.Circumferential bladder wall thickening indicative of cystitis. 3.Nonobstructive punctate nephrolithiasis is roughly stable. 08/17/24: ROMEO resulted with right mild residual hydronephrosis. Left mild to moderate hydronephrosis and hydroureter and nonobstructing renal calculi. The bladder is decompressed the urinary catheter. IMPRESSION: The degree of hydronephrosis in the left kidney is not substantially changed compared to the renal stone protocol accounting for differences in technique. The right kidney is poorly visualized but itdoes appear to have some degree of residual hydronephrosis. 09/21/23: ROMEO resulted with bilateral mild parenchymal thinning and bilateral moderate hydronephrosis without obstructing calculi or discernible mass. Renal cyst measuring about 1.9 x 1.1 x 1.0 cm. Under distended urinary bladder with mild questionable debris. Left ureteric jet seen only. IMPRESSION: 1.Persistent moderate bilateral hydronephrosis. No obstructing nephrolithiasis. 2.Underdistended urinary bladder with mild questionable debris. Left ureteric jet seen only. November 2024: ROMEO resulted with grossly similar bilateral diffuse cortical thinning and moderate hydronephrosis without stones and a stable left interpolar 1.2 cm simple cyst. Urinary bladder: Relative underdistention limits evaluation. Suggestion of probable small capacity bladder with similar circumferentially thickened appearing canchola, similar to prior ultrasound and CT. Although ultrasound is not very sensitive for detection, there is no overt internal floating debris or obvious hyperemia of the bladder wall to definitively suggest active cystitis. IMPRESSION: Grossly similar moderate hydronephrosis bilaterally when compared to ultrasound 3 months prior. Procedure: UDS Date/Time: 12/20/2024 10:28 AM Performed by: Cayla Erazo APRN, DNP Authorized by: Cayla Erazo APRN, DNP [place] Protocol: Time out called at: 12/20/2024 10:28 AM Patient identity confirmed: Provided demographic data, verbally with patient and hospital-assigned identification number Correct site/side verified and marked: yes Correct patient positioning for procedure: yes Verified correct procedure: yes Pre-procedure medications ordered/given (to include antibiotics if applicable): no Essential imaging and labs available and reviewed: yes Procedure explained and questions answered to patient or proxy's satisfaction: yes Consent obtained: Verbal and written Consent given by: Patient Risks, benefits, and alternatives discussed: Yes Safety precautions reviewed?: yes Relevant documents present and verified: yes Required blood products, implants, devices, and special equipment available: no Procedure Details: CMG with UPP/voiding pressures Pelvic Examination Performed?: No Pessary Performed?: No Was bladder voided as part of this procedure?: Yes Fluoro Time (total seconds): 43 Fluoro Dose (Gy-cm2): 430.5 Position: Sitting Outcome: patient tolerated procedure well with no complications Post-procedure interventions: post-procedure instructions given Complex CMG with EMG #1: Filling rate: 30 mL/min in seated position Maximum Capacity: ~80 mL as continuous leakage occurred with filling even after confirming correct urethral catheter placement and slowing filling to 10 ml/min Compliance: abnormal; normal appearing pressures likely due to right VUR noted immediately upon filling and UI with filling after ~80 ml instilled DOUGLAS: not evaluated due to VUR and UI at low volumes DO: No Cystogram: The bladder was neurogenic in appearance with left vesicoureteral reflux noted immediately upon filling. Voiding pressure study #1: She was not able to void during the study, but had continuous leakage after 80 ml instilled Pdet max: 41 cm H20 at 80 ml, but generally remained at 17 cm H2O EMG: increased throughout Dose Report: Start time: 1033 End time: 1051 00:43.1 of fluoroscopy time 43.407 mGy I personally both performed and interpreted the radiologic portion of the exam. Assessment: Eileen Tovar is a 64 y.o. F with Female Incontinence UDS indicated neurogenicappearing bladder with left VUR noted immediately upon filling. Abnormal compliance with normal appearing pressures due to VUR and continuous leakage with filling at 80 ml. She was informed that poorcompliance is likely cause of her VUR and history of hydronephrosis despite use of trospium. She carmen poor candidate for indwelling urethral catheter and is unable to CIC independently. Lukea addedto treatment plan in addition to continue trospium 20 mg BID. Cath urine appeared bloody and thus sent for culture and microscopy. BMP today. She is unsure if she can hold blood thinners for Botox to improve compliance. She opted to continue vaginal estrogen cream and d-mannose. She will follow up with BMP and ROMEO in 3 months. I will discuss her case with Dr. Jerez to determine next steps. ADDENDUM: BMP showed worsening of renal function with Cr 1.82 and GFR 35. ADDENDUM: Cath urine resulted with <10K MF, not treated; CTU and cystoscopy ordered for GH. ADDENDUM: December 2024: CTU resulted with atherosclerosis of the arcuate arteries in the kidneys. Thereis no evidence of renal calculus. There is moderate bilateral hydroureter. There is urothelial thickening. There is peripelvic and periureteral stranding. Hydroureter extends to the level of the bladder. There is severe bladder wall thickening. There is marked irregularity of the calyces which could be related to long- standing hydronephrosis versus papillary necrosis. There are extensive filling defects within both collecting systems. The filling defects extending down the ureters and at times form a layer above the contrast. The bladder appears to be fully occupied by a filling defect. Remaining Solid Abdominal and Pelvic Organs: No focal liver lesion. The gallbladder is absent. Bileduct dilation likely related to prior cholecystectomy. The pancreas, spleen, and adrenal glands arenormal. Uterus is absent. No pelvic mass is seen. GI Tract/Mesentery/Peritoneum: The stomach and duodenum are normal. No bowel obstruction. Normal appendix. Scattered colonic diverticula. No colonic obstruction. Free Fluid: No free fluid Lymph Nodes and Vasculature: There are upper limits of normal left periaortic lymph nodes. A left periaortic lymph node measures 11 mm. Musculoskeletal and Body Wall: There is dependent body wall edema. There is a calcification at the umbilicus. Multilevel degenerative disc disease. Lower Chest: The included lungs are clear. There is coronary artery atherosclerosis. IMPRESSION: Extensive filling defects throughout the collecting system, ureter, and bladder. This is favored adry blood clot. Malignancy is also a consideration but is likely superimposed on extensive clot within the collecting system. The clot results in moderate hydronephrosis hydroureter and completely opacifies the bladder. The degree of hydronephrosis is unchanged from the prior examination. There is marked periureteral and perirenal pelvic stranding suggestive of urinary tract infection or inflammation. The degree of inflammation is ossification adjacent compared to the prior examination. Marked calyceal irregularity which could reflect papillary necrosis. Discussed results with Dr. Jerez who agreed with discussing with Dr. Mitchell if she would proceed with bilateral URS with possible biopsies and stents as she had initially consulted her during inpatient stay. Plan: 1. Continue trospium BID for UI and decreased compliance 2. Continue d-mannose and vaginal estrogen cream to prevent RUTIs 3. Cath urine sent for culture, microscopy, and mycology 4. BMP today 5. Follow up in 3 months with BMP and ROMEO or earlier as necessary, will discuss case with Dr. Jerez In addition to the time spent performing the urodynamics testing, the visit included 60 minutes forevaluation and management. Cayla Erazo APRN, DNP [1] Patient Active Problem List Diagnosis Proteinuria Hypotension GERD without esophagitis Essential (primary) hypertension CAD (coronary artery disease), ambler coronary artery Controlled diabetes mellitus type II without complication Iron deficiency anemia Second hand smoke exposure Acute kidney injury superimposed on CKD ([facility]/HCC) Arthritis Cellulitis of left knee Chronic respiratory failure COPD (chronic obstructive pulmonary disease) ([facility]) Dehydration with hyponatremia Diabetes mellitus ([facility]/HCC) Hyperlipidemia Restrictive lung disease Stroke ([facility]) Herrin coma scale total score 13-15, unspecified coma timing Pyelonephritis Kidney infection Acquired absence of leg above knee Stage 3 chronic kidney disease ([facility]/HCC) Type 2 diabetes mellitus with diabetic chronic kidney disease ([facility]) Peripheral vascular disease, unspecified ([facility]/HCC) Prosthetic joint infection ([facility]) Unspecified hydronephrosis Vitamin D deficiency, unspecified Disorder of kidney and ureter, unspecified Unspecified right bundle-branch block Unspecified abdominal pain Tubulo-interstitial nephritis, not specified as acute or chronic Tinea unguium Secondary hyperparathyroidism of renal origin (CMS/HCC) Pain in right toe(s) Pain in left toe(s) Edema, unspecified Presence of left artificial knee joint Other specified disorders of the skin and subcutaneous tissue Other nonspecific abnormal finding of lung field Weakness Other disorders of phosphorus metabolism Other acute postprocedural pain Old myocardial infarction Nontoxic single thyroid nodule Morbid (severe) obesity due to excess calories (CMS/HCC) Mixed simple and mucopurulent chronic bronchitis (CMS/HCC) Methicillin resistant Staphylococcus aureus infection Hypertensive heart and chronic kidney disease with heart failure and stage 1 through stage 4 chronic kidney disease, or unspecified chronic kidney disease (CMS/HCC) Hyperkalemia Hydronephrosis with renal and ureteral calculous obstruction Hemiplegia and hemiparesis following cerebral infarction affecting left non- dominant side (CMS/HCC) Fecal impaction (CMS/HCC) Dysuria Dyspnea, unspecified Deep venous thrombosis of lower extremity Constipation, unspecified Chronic diastolic (congestive) heart failure (CMS/HCC) Calculus of kidney Atrial premature depolarization Adult failure to thrive Headache, unspecified Venous embolism Urinary retention Recurrent UTI Post-menopausal atrophic vaginitis Hypertensive chronic kidney disease with stage 1 through stage 4 chronic kidney disease, or unspecified chronic kidney disease Urinary incontinence without sensory awareness Cyst of kidney, acquired Glycosuria Pain, unspecified Other specified cardiac arrhythmias Insomnia, unspecified Cerebral infarction due to unspecified occlusion or stenosis of left carotid arteries (CMS/HCC) Anemia in chronic kidney disease Chronic kidney disease, stage 3a (CMS/HCC) Type 2 diabetes mellitus without complication [2] Past 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: Diagnosis Date Anxiety Breast cancer Cerebral infarction, unspecified (CMS/HCC) CVA (cerebral infarction) COPD (chronic obstructive pulmonary disease) (CMS/HCC) Depression Fibromyalgia History of falling History of fall Hypertension Personal history of other diseases of the musculoskeletal system and connective tissue History of osteoporosis Personal history of other endocrine, nutritional and metabolic disease History of diabetes mellitus Personal history of other specified conditions History of headache Personal history of urinary (tract) infections History of urinary tract infection [3] Past Surgical History: Procedure Laterality Date BREAST SURGERY N/A Breast Surgery Reconstruction from [facility] BREAST SURGERY N/A Breast Surgery from [facility] CHOLECYSTECTOMY N/A Cholecystotomy from [facility] KIDNEY SURGERY N/A Kidney Surgery from [facility] KNEE SURGERY N/A Knee Surgery from [facility] MASTECTOMY N/A Breast Surgery Mastectomy from [facility] SHOULDER SURGERY Right Shoulder Surgery Right from [employer] [4] Family History Problem Relation Name Age of Onset Breast cancer Mother's Sister Cancer Father Cancer Mother Cancer Mother's Sister Stroke Mother Menorrhagia Father [5] Social History Tobacco Use Smoking status: Former Current packs/day: 0.00 Types: Cigarettes Quit date: 07/22/2022 Years since quittin.4 Passive exposure: Past Smokeless tobacco: Never Vaping Use Vaping status: Never Used Substance Use Topics Alcohol use: Yes Drug use: Never * Progress Notes - Alan Allred - 12/20/2024 9:20 AM EDT Patient contacted, spoke with nurse at facility. Scheduled for CT on january 03 and appt for cysto with Dr. Doug Chapman on March 07. [facility] documented in this encounter Plan of Treatment Upcoming Encounters Date Type Department Care Team (Late st Contact Info) Description 03/07/2025 10:00 AM EDT Office Visit [facility] [address] [place] [id number] Doug Chapman MD [address] [phone] 03/27/2025 10:30 AM EDT Appointment [facility] Ultrasound [address] [place] [phone] 03/27/2025 11:50 AM EDT Clinical Support [facility] Lab [address] [place] [address] 03/27/2025 1:00 PM EDT Office Visit [facility] Urology [address] [facility], [address] [place] [address] Cayla Erazo APRN, DNP [address] [address] 05/16/2025 8:00 AM EDT Office Visit [facility] [place] [address] [facility], [address] [place] [address] Karly Gracia MD [address] [place] [address] 06/07/2025 1:00 PM EDT Office Visit [facility] [address] [place] [address] Tom Iraheta MD [address] [place] [address] Scheduled Orders Name Type Priority Associated Diagnoses Orde r Schedule Basic Metabolic Panel, Plasma Lab Routine Hydronephrosis, unspecified hydronephrosis type Expected: 03/22/2025 (Approximate), Expires: 06/22/2026 Renal Complete Imaging Routine Hydronephrosis, unspecified hydronephrosis type Expected: 03/22/2025 (Approximate), Expires: 06/22/2026 Cysto- Urology Procedure Routine Gross hematuria Expected: 12/25/2024 (Approximate), Expires: 06/27/2026 documented as of this encounter Procedures Procedure Name Priority Date/Time Associated Diagnosis Comments URINE CULTURE Routine 12/20/2024 2:33 PM EDT Hydronephrosis, unspecified hydronephrosis type Urinary retention UROLOGY UDS WITH BASE PERFORMABLE CHARGES Routine 12/20/2024 10:28 AM EDT Hydronephrosis, unspecified hydronephrosis type Urinary retention [place] COMPLEX CYSTOMETROGRAM W/VOID PRESS&URETHRAL PROFILE Routine 12/20/2024 10:28 AM EDT Hydronephrosis, unspecified hydronephrosis type Urinary retention INJECTION FOR BLADDER XRAY WITHOUT VOIDING Routine 12/20/2024 10:28 AM EDT Hydronephrosis, unspecified hydronephrosis type Urinary retention documented in this encounter Results * CT Urogram (01/03/2025 3:01 PM EDT) Anatomical Region Laterality Modality Abdomen, Pelvis Computed Tomogra phy Impressions 01/03/2025 3:33 PM EDT Extensive filling defects throughout the collecting system, ureter, and bladder. This is favored to be blood clot. Malignancy is also a consideration but is likely superimposed on extensive clot within the collecting system. The clot results in moderate hydronephrosis hydroureter and completely opacifies the bladder. The degree of hydronephrosis is unchanged from the prior examination. There is marked periureteral and perirenal pelvic stranding suggestive of urinary tract infection or inflammation. The degree of inflammation is ossification adjacent compared to the prior examination. Marked calyceal irregularity which could reflect papillary necrosis. CRITICAL RESULT: No. COMMUNICATION: Per this written report. Drafted by Jin Morin MD on 01/03/2025 3:24 PM Final report signed by Jin Morin MD on 01/03/2025 3:33 PM Narrative 01/03/2025 3:33 PM EDT CLINICAL INDICATION: Hematuria, gross/macroscopic TECHNIQUE: Multiple pre-contrast axial CT images were obtained from lower chest through pubic symphysis, followed by multiple axial CT images of abdomen and pelvis following split bolus administration of IV contrast, Omnipaque 300, 150 mL. Reformatted images in the coronal and sagittal planes were generated from the axial data set to facilitate diagnostic accuracy. Total DLP (Dose-Length Product): 2819.92 mGy.cm. Please note: The reported value represents the total of one or more individual components during the CT acquisition on this date and at this time, and as such, the same value may appear in more than one CT report depending on the interpreting/reporting physicians. COMPARISON: CT renal stone protocol August 15, 2024 FINDINGS: Kidneys, Ureters, Bladder: There is atherosclerosis of the arcuate arteries in the kidneys. There is no evidence of renal calculus. There is moderate bilateral hydroureter. There is urothelial thickening. There is peripelvic and periureteral stranding. Hydroureter extends to the level of the bladder. There is severe bladder wall thickening. There is marked irregularity of the calyces which could be related to long- standing hydronephrosis versus papillary necrosis. There are extensive filling defects within both collecting systems. The filling defects extending down the ureters and at times form a layer above the contrast. The bladder appears to be fully occupied by a filling defect. Remaining Solid Abdominal and Pelvic Organs: No focal liver lesion. The gallbladder is absent. Bile duct dilation likely related to prior cholecystectomy. The pancreas, spleen, and adrenal glands are normal. Uterus is absent. No pelvic mass is seen. GI Tract/Mesentery/Peritoneum: The stomach and duodenum are normal. No bowel obstruction. Normal appendix. Scattered colonic diverticula. No colonic obstruction. Free Fluid: No free fluid Lymph Nodes and Vasculature: There are upper limits of normal left periaortic lymph nodes. A left periaortic lymph node measures 11 mm. Musculoskeletal and Body Wall: There is dependent body wall edema. There is a calcification at the umbilicus. Multilevel degenerative disc disease. Lower Chest: The included lungs are clear. There is coronary artery atherosclerosis. Procedure Note Jin Morin MD - 01/03/2025 CLINICAL INDICATION: Hematuria, gross/macroscopic TECHNIQUE: Multiple pre-contrast axial CT images were obtained from lower chestthrough pubic symphysis, followed by multiple axial CT images of abdomenand pelvis following split bolus administration of IV contrast, [id number], 150 mL. Reformatted images in the coronal and sagittal planes weregenerated from the axial data set to facilitate diagnostic accuracy. Total DLP (Dose-Length Product): 2819.92 mGy.cm. Please note: The reportedvalue represents the total of one or more individual components during theCT acquisition on this date and at this time, and as such, the same valuemay appear in more than one CT report depending on theinterpreting/reporting physicians. COMPARISON: CT renal stone protocol August 15, 2024 FINDINGS: Kidneys, Ureters, Bladder: There is atherosclerosis of the arcuatearteries in the kidneys. There is no evidence of renal calculus. There ismoderate bilateral hydroureter. There is urothelial thickening. There isperipelvic and periureteral stranding. Hydroureter extends to the level ofthe bladder. There is severe bladder wall thickening. There is marked irregularity of the calyces which could be related tolong- standing hydronephrosis versus papillary necrosis. There areextensive filling defects within both collecting systems. The fillingdefects extending down the ureters and at times form a layer above thecontrast. The bladder appears to be fully occupied by a filling defect. Remaining Solid Abdominal and Pelvic Organs: No focal liver lesion. Thegallbladder is absent. Bile duct dilation likely related to priorcholecystectomy. The pancreas, spleen, and adrenal glands are normal.Uterus is absent. No pelvic mass is seen. GI Tract/Mesentery/Peritoneum: The stomach and duodenum are normal. Nobowel obstruction. Normal appendix. Scattered colonic diverticula. Nocolonic obstruction. Free Fluid: No free fluid Lymph Nodes and Vasculature: There are upper limits of normal leftperiaortic lymph nodes. A left periaortic lymph node measures 11 mm. Musculoskeletal and Body Wall: There is dependent body wall edema. Thereis a calcification at the umbilicus. Multilevel degenerative discdisease. Lower Chest: The included lungs are clear. There is coronary arteryatherosclerosis. IMPRESSION: Extensive filling defects throughout the collecting system, ureter, andbladder. This is favored to be blood clot. Malignancy is also aconsideration but is likely superimposed on extensive clot within thecollecting system. The clot results in moderate hydronephrosis hydroureter and completelyopacifies the bladder. The degree of hydronephrosis is unchanged from theprior examination. There is marked periureteral and perirenal pelvic stranding suggestive ofurinary tract infection or inflammation. The degree of inflammation isossification adjacent compared to the prior examination. Marked calyceal irregularity which could reflect papillary necrosis. CRITICAL RESULT: No. COMMUNICATION: Per this written report. Drafted by Jin Morin MD on 01/03/2025 3:24 PM Final report signed by Jin Morin MD on 01/03/2025 3:33 PM Cayla Erazo WELDING SPECIALIST, DNP IMG CT PROCEDURES Final Result * Urine Culture - Clinic Collect (12/20/2024 2:33 PM EDT) Culture <10,000 CFU/mL Mixed urogenital, fecal, or skin jesus present. 12/21/2024 2:41 PM EDT [facility] Urine Urine specimen / Unknown Non-blood Collection / Unknown 12/20/2024 2:33 PM EDT 12/20/2024 3:16 PM EDT us Cayla Erazo WELDING SPECIALIST, DNP LAB MICROBIOLOGY - GENER AL ORDERABLES Final Result [facility] [address] [place] [address] * (ABNORMAL) Basic Metabolic Panel, Plasma (12/20/2024 11:54 AM EDT) Glucose, Plasma 226(H) 74 - 99 mg/dL 12/20/2024 1:19 PM EDT [facility] BUN, Plasma 34(H) 8 - 23 mg/dL 12/20/2024 1:19 PM EDT [facility] Creatinine, Plasma 1.82(H) 0.60 - 1.10 mg/dL 12/20/2024 1:19 PM EDT [facility] BUN/Creatinine Ratio 12/20/2024 1:19 PM EDT [facility] Sodium, Plasma 134(L) 136 - 145 mmol/L 12/20/2024 1:19 PM EDT [facility] Potassium, Plasma 4.8 3.6 - 4.9 mmol/L 12/20/2024 1:19 PM EDT [facility] Chloride, Plasma 94(L) 97 - 107 mmol/L 12/20/2024 1:19 PM EDT [facility] CO2, Plasma 28 22 - 29 mmol/L 12/20/2024 1:19 PM EDT [facility] Anion Gap 12 6 - 16 mmol/L 12/20/2024 1:19 PM EDT [facility] Total Calcium, Plasma 10.0 8.9 - 10.2 mg/dL 12/20/2024 1:19 PM EDT [facility] eGFRcr 30.5 mL/min/1.7 3m*2 12/20/2024 1:19 PM EDT [facility] Comment:Reported eGFRcr in m L/min/1.73m2 is based the CKD-EPI 2020 equation that does not use a race coefficient. Blood Venous blood specimen / Unknown Venipuncture / Unknown 12/20/2024 11:54 AM EDT 12/20/2024 11:55 AM EDT Cayla Erazo APRN, DNP LAB BLOOD ORDERABLES Andi rodney Result [facility] [address] [place] [address] * INJECTION FOR BLADDER XRAY WITHOUT VOIDING, [place] COMPLEX CYSTOMETROGRAM W/VOID PRESS&URETHRAL PROFILE, UROLOGY UDS WITH BASE PERFORMABLE CHARGES (12/20/2024 10:28 AM EDT) Narrative Cayla Erazo APRN, DNP - 12/20/2024 10:28 AM EDT Cayla Erazo APRN, DNP 01/04/2025 2:40 PM UDS Date/Time: 12/20/2024 10:28 AM Performed by: Cayla Erazo APRN, DNP Authorized by: Cayla Erazo APRN, DNP [place] Protocol: Time out called at: 12/20/2024 10:28 AM Patient identity confirmed: Provided demographic data, verbally with patient and hospital-assigned identification number Correct site/side verified and marked: yes Correct patient positioning for procedure: yes Verified correct procedure: yes Pre-procedure medications ordered/given (to include antibiotics if applicable): no Essential imaging and labs available and reviewed: yes Procedure explained and questions answered to patient or proxy's satisfaction: yes Consent obtained: Verbal and written Consent given by: Patient Risks, benefits, and alternatives discussed: Yes Safety precautions reviewed?: yes Relevant documents present and verified: yes Required blood products, implants, devices, and special equipment available: no Procedure Details: CMG with UPP/voiding pressures Pelvic Examination Performed?: No Pessary Performed?: No Was bladder voided as part of this procedure?: Yes Fluoro Time (total seconds): 43 Fluoro Dose (Gy-cm2): 430.5 Position: Sitting Outcome: patient tolerated procedure well with no complications Post-procedure interventions: post-procedure instructions given Cayla Erazo APRN, DNP UROLOGY ORDERABLES Edite d Result - Final documented in this encounter Visit Diagnoses Diagnosis Recurrent UTI- Primary Urinary tract infection, site not specified Hydronephrosis, unspecified hydronephrosis type Urinary retention Unspecified retention of urine Post-menopausal atrophic vaginitis Postmenopausal atrophic vaginitis Gross hematuria Gross hematuria documented in this encounter Administered Medications Inactive Administered Medications - up to 3 most recent administrations Medication Order MAR Action Action Date Dose Rate Site iothalamate meglumine (Cysto Conray) 17.2 % urethral solution solution 500 mL 500 mL, Urethral, Once in imaging, 1 dose, Starting on Hermelinda 12/20/24 at 1034, Until Hermelinda 12/20/24 at 1034, Routine, IntraprocedureIndications:Pachuta nephrosis, unspecified hydronephrosis type,Urinary retention Given by Other 12/20/2024 10:34 AM EDT 500 mL 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 Assessment Noted Time PHQ-9 Depression Total Score: 13 025 10:12 AM EST A fall risk assessment has been complete d for the patient 12/20/2024 9:50 AM EDT A Body Mass Index follow-up plan has been documented for the patient 12/25/2024 9:50 PM EDT documented as of this encounter Care Teams Computer Repairer Relationship Specialty Start Date End Date Daniel Barba MD [address] [place] [address] PCP - General 01/02/21 12/30/24 Vignesh Pickens MD [address] [place] [phone] PCP - General 12/31/24 Cayla Erazo APRN, DNP [address] [facility] [address] [place] [phone] Nurse Practitioner Urology 12/20/24 documented as of this encounter
--- OUTSIDE RECORDS SUMMARY | 2025-01-03 14:15 | XMS_ITS | Encounter Summary ---
Author Organization [facility] Address [address] [place] [address] Care Team Providers Care Federal Judge Name Role Phone Cayla Erazo APRN, DNP Unavailable [phone] Vignesh Pickens MD Primary Care Provider [phone] Reason for Referral * Imaging (Routine) - Closed Specialty Diagnoses / Procedures Referred By Clara stoner Referred To Contact Radiology Diagnoses Gross hematuria Procedures CT Urogram Cayla Erazo APRN, DNP [address] [address] Phone: tel: fax: Referral ID Status Reason Start Date Expiration Date Visits Re quested Visits Authorized [id number] Closed 12/25/2024 06/26/2026 1 1 Reason for Visit * Imaging (Routine) - Closed Specialty Diagnoses / Procedures Referred By Clara stoner Referred To Contact Radiology Diagnoses Gross hematuria Procedures CT Urogram Cayla Erazo APRN, DNP [address] [address] Phone: tel: fax: Referral ID Status Reason Start Date Expiration Date Visits Re quested Visits Authorized [id number] Closed 12/25/2024 06/26/2026 1 1 Encounter Details Date Type Department Care Team (Latest Contact Info) Description 01/03/2025 2:15 PM EDT - 01/03/2025 11:59 PM EDT Hospital Encounter [facility] [address] [place] [address] Gross hematuria Discharge Disposition: Home or Self [...] any time in the past 12 m [facility], were you homeless or living in a assisted (including now)? No 08/20/2024 CAGE ASSESSMENT Answer [...] drink first t rodríguez in the morning (EYE-CERTIFIED CODER) to steady your nerves or to get rid of a hangover? 0 08/15/2024 CAGE Questionnaire Score 0 024 Utilities Answer Date Recorded In the past 12 months has th e [employer], gas, oil, or water [employer] (acquired by [employer] in 2014) threatened to shut off services in your [...] (1 mg total) by mouth daily. 01/10/2021 ascorbic acid (Vitamin C) 500 MG tablet [...] time each day. 120 capsule 11 09/26/2024 estradiol (Estrace) 0.1 MG/GM vaginal cream Insert 1 gram into the vagina 3x/week 30 g 3 09/26/2024 ferrous sulfate 325 (65 Fe) MG tablet Take 1 tablet by mouth 2 times a day. fluticasone (Flonase) 50 MCG/ACT nasal spray Administer 1 spray into each nostril 2 times a day. 01/17/2020 loperamide (Imodium) 2 MG capsule Take 1 capsule by mouth every 4 hours as needed. 09/16/2020 magnesium oxide (Mag-Ox) 400 mg tablet Take 1 tablet by mouth 2 times a day. multivitamin (Theragran-M) tablet Take 1 tablet by mouth daily. ondansetron (Zofran) 4 MG tablet Take 1 tablet by mouth every 6 hours as needed. 01/17/2020 pantoprazole (ProtoNix) 20 MG EC tablet Take 1 tablet by mouth daily before breakfast. 01/08/2021 traZODone (Desyrel) 150 MG tablet Take 2 tablets by mouth nightly. 01/16/2021 trospium (Sanctura) 20 MG tablet Take 1 tablet (20 mg) by mouth 2 (two) times a day. 60 tablet 11 09/26/2024 6 ARIPiprazole (Abilify) 5 MG tablet Take 1 tablet (5 mg) by mouth 1 (one) time each day. 5 Artificial Tears ophthalmic solution Administer 2 drops into both eyes 3 times a day as needed. 11/23/2024 5 dextromethorphan -guaiFENesin (Robitussin-DM) 10-100 MG/5ML liquid Take 10 mL by mouth every 4 (four) hours if needed. 01/17/2020 5 diphenhydrAMINE (Benadryl) 25 MG tablet Take 1 tablet by mouth 2 times a day as needed for itching. 5 DULoxetine (Cymbalta) [address] capsule Take 1 capsule by mouth daily. Do not crush or chew. Take with 60mg capsule for a 90mg dose 5 DULoxetine (Cymbalta) [address] capsule Take 1 capsule by mouth daily. Do not crush or chew. Take with 30mg capsule for a 90mg dose 5 fentaNYL (Duragesic) 12 MCG/HR Place 1 patch on the skin every 3rd (third) day. 3 patch 08/22/2024 5 guaiFENesin (GUAIASORB PO) Take 10 mL by mouth every 4 hours as needed. 5 insulin aspart, w/niacinamide, (Fiasp) 100 UNIT/ML solution vial Inject as directed 2 (two) times a day. Per sliding scale @ 1130 and 1630 5 insulin glargine (Basaglar KwikPen) 100 UNIT/ML injection pen Inject 70 Units under the skin 2 times a day. @ 0630 and 2000 5 ipratropium-albu terol (Duo-Neb) 0.5-2.5 mg/3 mL nebulizer solution Take 3 mL by nebulization every 6 hours as needed. 5 oxyCODONE-acetam inophen (Percocet) 5-325 MG tablet Take 1 tablet by mouth 2 (two) times a day if needed for severe pain. 6 tablet 08/22/2024 5 pregabalin (Lyrica) 50 MG capsule Take 1 capsule (50 mg) by mouth 2 (two) times a day. 60 capsule 08/22/2024 5 rivaroxaban (Xarelto) 15 MG tablet Take 1 tablet by mouth every evening. Take with food. 5 traZODone (Desyrel) 300 MG tablet 12/13/2023 5 Vibegron 75 MG tablet Take 75 mg by mouth daily. Take one pill by mouth daily. 30 tablet 11 12/20/2024 5 documented as of this encounter Plan of Treatment Upcoming Encounters Date Type Department Care Team (Late st Contact Info) Description 03/07/2025 10:00 AM EDT Office Visit [facility] [address], [address] [place] [address] Doug Chapman MD [id number] [place] [address] 03/27/2025 10:30 AM EDT Appointment [facility] Ultrasound [address] [place] [address] 03/27/2025 11:50 AM EDT Clinical Support [facility] [address] [place] [address] 03/27/2025 1:00 PM EDT Office Visit [facility] [address] [facility], [address] [place] [address] Cayla Erazo, MUMPS DEVELOPER, DNP [address] [address] 05/16/2025 8:00 AM EDT Office Visit [facility] Poyntelle Mason [address] [facility] [facility], [address] [place] [address] Karly Gracia MD [address] [place] [address] 06/07/2025 1:00 PM EDT Office Visit [facility] [address] [place] [address] Tom Iraheta MD [address] [place] [address] documented as of this encounter [...] following split bolus administration of IV contrast, [id number], 150 mL. Reformatted images in the coronal [...] MD on 01/03/2025 3:33 PM Cayla Erazo MUMPS DEVELOPER, DNP IMG CT PROCEDURES Final Result documented in [...] documented as of this encounter Care Teams Federal Judge Relationship Specialty Start Date End Date Vignesh Pickens MD [address] [place] [address] PCP - General 12/31/24 Cayla Erazo APRN, DNP [address] [place] [address] Nurse Practitioner Urology 12/20/24 documented as of this encounter
--- OUTSIDE RECORDS SUMMARY | 2025-01-24 14:00 | XMS_ITS | Encounter Summary ---
Author Organization [facility] Address [address] [place] [address] Care Team Providers Care Hook And Eye Sewing Machine Operator Name Role Phone Cayla Erazo APRN, DNP Unavailable [phone] Vignesh Pickens MD Primary Care Provider [phone] Encounter Details Date Type Department Care Team (Late st Contact Info) Description 01/24/2025 2:00 PM EDT [facility] Testing [facility] [address], [address] [place] [address] Social History Tobacco Use Types Packs/Day Years [...] any time in the past 12 m [facility], were you homeless or living in a [...] drink first t rodríguez in the morning (EYE-ASSEMBLER BONDING) to steady your nerves or to get [...] mouth wide, with pt.'s nurse Gabriela at [facility], via phone. . Cardiovascular: CAD (s/p cardiac stents (2018).), carotid artery disease (asymptomatic Bilat. CHAVA. s/p left ICA stent (2013).), CHF (chronic diastolic CHF.), dysrhythmias (Hx RBBB.), hyperlipidemia, past [place] and PVD.Does not have angina, atrial fibrillation, [...] - CAD s/p PCI in 2017 in [facility] (records requested), ICM with LVEF 40-45% [...] Musculoskeletal: arthritis. Does not have multiple sclerosis. [facility]/Sk/Inte additional comments: Hx Left AKA in 11/2023 [...] INR 2.5 to 3.5 Prevention of recurrent [place] INR 2.5 to 3.5 INR 03/06/2014 1.0 (NOTE) OPTIMAL INR RANGES FOR PATIENT ON ORAL ANTICOAGULANT THERAPY Prevention of venous thromboembolism INR 2.0 to 3.0 In patients with heart disease: Atrial fibrillation INR 2.0 to 3.0 Valvular heart disease INR 2.0 to 3.0 Tissue heart valves INR 2.0 to 3.0 Mechanical prosthetic valves INR 2.5 to 3.5 Prevention of recurrent [place] INR 2.5 to 3.5 INR 03/05/2014 1.0 (NOTE) OPTIMAL INR RANGES FOR PATIENT ON ORAL ANTICOAGULANT THERAPY Prevention of venous thromboembolism INR 2.0 to 3.0 In patients with heart disease: Atrial fibrillation INR 2.0 to 3.0 Valvular heart disease INR 2.0 to 3.0 Tissue heart valves INR 2.0 to 3.0 Mechanical prosthetic valves INR 2.5 to 3.5 Prevention of recurrent [place] INR 2.5 to 3.5 Visit Vitals Wt 85.7 kg (189 lb) LMP (LMP Unknown) BMI 32.44 kg/m?? OB Status Postmenopausal Smoking Status Former BSA 1.97 m?? Physical Exam Airway Cardiovascular Dental Pulmonary Neurological (+) hemiplegia Skin Musculoskeletal Extremities Anesthesia Plan ASA 3 Anesthesia technique(s) discussed with the patient/family: general Comment: WAYLON phone screen with pt.'s nurse Gabriela, at [facility]. Discussed withDr. Wood and discussed with Dr. Ceci Mitchell, RE: holding Plavix and Xarelto. Pearl Chopra, ELECTRONIC CONTROLS REPAIRER SUPERVISOR [1] Past 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: Diagnosis Date Anxiety [...] BREAST SURGERY N/A Breast Surgery Reconstruction from [facility] BREAST SURGERY N/A Breast Surgery from [facility] CHOLECYSTECTOMY N/A Cholecystotomy from [facility] KIDNEY SURGERY N/A Kidney Surgery from [facility] KNEE SURGERY N/A Knee Surgery from [facility] MASTECTOMY N/A Breast Surgery Mastectomy from [facility] SHOULDER SURGERY Right Shoulder Surgery Right from [facility] [5] Allergies Allergen Reactions Sulfa Drugs Anaphylaxis Ultram [Tramadol] Swelling lips swell Hydrocodone Unknown - Patient states they do not know rxn details [facility] is unaware of what reaction. Pedi-Pre Tape [place] [Wound Dressing Adhesive] Rash Wellbutrin [Bupropion] Rash [...] card, photo ID, along with power of deputy prosecuting attorney, guardianship or advanced directives if applicable [...] Description 03/07/2025 10:00 AM EDT Office Visit [facility] Urology [address], [address] [place] [address] Doug Chapman MD [address] [place] [address] 03/27/2025 10:30 AM EDT Appointment [facility] Ultrasound [address], [address]nd [place] [address] 03/27/2025 11:50 AM EDT Clinical Support Medical Office Building Lab [facility] [place] [phone] 03/27/2025 1:00 PM EDT Office Visit Medical Office Building Urology [address], [address] [place] [address] Cayla Erazo APRN, DNP [address] [facility] [place] [address] 05/16/2025 8:00 AM EDT Office Visit [facility] [place] [address], [address] [place] [address] Karly Gracia MD [address] [place] [address] 06/07/2025 1:00 PM EDT Office Visit [facility] [address] [place] [address] Tom Iraheta MD [address] [place] [address] documented as of this encounter [...] documented as of this encounter Care Teams Hook And Eye Sewing Machine Operator Relationship Specialty Start Date End Date Vignesh Pickens MD [address] [place] [address] PCP - General 12/31/24 Cayla Erazo APRN, DNP [address] [place] [address] Nurse Practitioner Urology 12/20/24 documented as of this encounter
--- OUTSIDE RECORDS SUMMARY | 2025-01-31 08:03 | XMS_ITS | Encounter Summary ---
Author Organization [facility] Address [address] [place] [address] Care Team Providers Care Training Generalist Name Role Phone Cayla Erazo APRN, DNP Unavailable [phone] Vignesh Pickens MD Primary Care Provider [phone] Reason for Visit * Auth/Cert (Routine) Specialty Diagnoses / Procedures Referred By Contac t Referred To Contact Diagnoses Gross hematuria Gross hematuria Procedures ND CYSTO/URETERO/PYELOSC,BX &/OR FULG LESN URETEROSCOPY, WITH BIOPSY POSSIBLE STENT PLACEMENTS Ceci Mitchell MD [address] [address] Phone: tel: fax: [facility] [address] [place] [address] Phone: tel: Referral ID Status Reason Start Date Expiration Date Visits Re quested Visits Authorized [id number] 1 1 Encounter Details Date Type Department Care Team (Latest Contact Info) Description 01/31/2025 8:03 AM EDT - 01/31/2025 1:39 PM EDT Hospital Encounter [facility] [address] [place] [address] Ceci Mitchell MD [address] [address] Urinary retention (Primary Dx); Gross [...] any time in the past 12 m [facility], were you homeless or [...] drink first t rodríguez in the morning (EYE-MILL WORKER) to steady your nerves or to get rid of a hangover? 0 08/15/2024 CAGE Questionnaire Score 0 024 Utilities Answer Date Recorded In the past 12 months has e [employer], gas, oil, or water company threatened to [...] confirm your location ahead of your appointment) [facility] Urology Department Clinic at [facility] [address], [facility], [address] [place] [address] Clinic After Hours [facility] Office Building Urology Clinic [facility] [address] [place] [address] Clinic After Hours documented in this encounter [...] POSTOPERATIVE DIAGNOSIS: Same SURGEON: Ceci Mitchell MD TOP LIFT AND AUTOMATIC WINDOW REPAIRER SURGEON(S): Gerry Cullen DO, Doug Lundy MD [...] the start of the case. A 19 Bots[place]an rigid cystoscope was introduced into the patient's [...] of the renal pelvis. We advanced a [place] catheter over our sensor wire and performed [...] leave stents bilaterally with strings. Used 7 Bots[place]an by 24 cm double-J stents on strings. These were placed without difficulty and intraoperative fluoroscopy was used to confirm appropriate positioning with the proximal curls in the renal pelvises bilaterally in the distal curls in the bladder. An 18 [place]an García catheter was placed at the conclusion [...] Cullen DO PGY-3, Department of Urology Pager: [phone] Cosigned by Ceci Mitchell MD at 01/31/2025 [...] (cerebral infarction) COPD (chronic obstructive pulmonary disease) ([facility]) Depression Fibromyalgia History of falling History of [...] BREAST SURGERY N/A Breast Surgery Reconstruction from [facility] BREAST SURGERY N/A Breast Surgery from [facility] CHOLECYSTECTOMY N/A Cholecystotomy from [facility] KIDNEY SURGERY N/A Kidney Surgery from [facility] KNEE SURGERY N/A Knee Surgery from [facility] MASTECTOMY N/A Breast Surgery Mastectomy from [facility] SHOULDER SURGERY Right Shoulder Surgery Right from [facility] [3] No medications prior to admission. [4] Allergies Allergen Reactions Sulfa Drugs Anaphylaxis Ultram [Tramadol] Swelling lips swell Hydrocodone Unknown - Patient states they do not know rxn details [facility] is unaware of what reaction. Pedi-Pre Tape [place] [Wound Dressing Adhesive] Rash Wellbutrin [Bupropion] Rash [...] Office Visit [facility] [address], [address] [place] [address] Doug Chapman MD [address] [place] [address] 03/27/2025 10:30 AM EDT Appointment [facility] Ultrasound [address], [address]nd [place] [address] 03/27/2025 11:50 AM EDT Clinical Support Medical Office Building Lab [address] [place] [address] 03/27/2025 1:00 PM EDT Office Visit Medical Office Building Urology [address] [facility], [address] [place] [address] Cayla Erazo, MANAGER SPECIAL EVENTS, DNP [address] [place] [address] 05/16/2025 8:00 AM EDT Office Visit [facility] [address] [facility], [address] [place] [address] Karly Gracia MD [address] [place] [address] 06/07/2025 1:00 PM EDT Office Visit [facility] [address] [place] [address] Tom Iraheta MD [address] [place] [address] documented as of this encounter Procedures Procedure Name Priority Date/Time Associated Diagnosis Comments POCT GLUCOSE METER UNSOLICITED RESULTS Routine 01/31/2025 11:39 AM EDT [place] LESS THAN 1 HOUR (NON-REPORTABLE) Routine 01/31/2025 11:14 AM EDT FUNGAL CULTURE, ROUTINE Routine 01/31/2025 10:23 AM EDT Gross hematuria URINE CULTURE Routine 01/31/2025 10:22 AM EDT Gross hematuria ND CYSTO/URETERO/PYELOS C,BX &/OR FULG LESN 01/31/2025 9:32 AM EDT Gross hematuria POCT GLUCOSE METER UNSOLICITED RESULTS Routine 01/31/2025 8:47 AM EDT documented in this encounter Results * (ABNORMAL) POCT glucose meter (01/31/2025 11:39 AM EDT) POCT Glucose 135(H) 74 - 99 mg/dL 01/31/2025 11:41 AM EDT [facility] Comment:Accuracy of [...] Comment 01/31/2025 11:41 AM EDT HEALTHCARE LAB Cable Worker Helper ID Abeby Medina 01/31/2025 11:41 AM EDT HEALTHCARE LAB Device ID [id number] 01/31/2025 11:41 AM EDT HEALTHCARE LAB Specimen Type POC Capillary 01/31/2025 11:41 AM EDT HEALTH[facility]ARE LAB Blood Capillary blood specimen / Unknown 01/31/2025 11:39 AM EDT 01/31/2025 11:41 AM EDT us Ceci Mitchell MD LAB POINT OF CARE TE ST DOCKED DEVICE UNSOLICITED RESULTS Final Result Performing Organization Address City/[facility]/ZIP Co de Phone Number HEALTHCARE LAB [address] [place] [address] * [place] Less than 1 Hour Intraoperative [...] Growth Maira glabrata(A) 02/08/2025 11:50 AM EDT [facility] Urine Urinary bladder structure / Unknown 01/31/2025 10:23 AM EDT 01/31/2025 11:38 AM EDT Comment:Pre-op diagnosis: Gross hematuria Ceci Mitchell MD LAB MICROBIOLOGY - GENERAL O RDERABLES Final Result Performing Organization Address [facility]/ZIP Co de Phone Number [facility] [address] [place] [address] * Urine Culture (01/31/2025 10:22 AM EDT) Culture No growth at day 1 02/01/2025 8:02 AM EDT [facility] Urine Urinary bladder structure / Unknown 01/31/2025 10:22 AM EDT 01/31/2025 11:38 AM EDT Comment:Pre-op diagnosis: Gross hematuria Ceci Mitchell MD LAB MICROBIOLOGY - GENERAL O RDERABLES Final Result Performing Organization Address [facility] [place] [address] * (ABNORMAL) POCT glucose meter (01/31/2025 8:47 [...] 01/31/2025 8:49 AM EDT [facility] Cable Worker Helper ID Khai Jamison 02/01/20 8:49 AM EDT [facility] Device ID [id number] 01/31/2025 8:49 AM EDT [facility] Specimen Type POC Capillary 01/31/2025 8:49 AM EDT HEALTHCARE LAB Blood Capillary blood specimen / Unknown 01/31/2025 8:47 AM EDT 01/31/2025 8:49 AM EDT Ceci Mitchell MD LAB POINT OF CARE TE ST DOCKED DEVICE UNSOLICITED RESULTS Final Result [facility]ALTHCARE LAB [address] [place] [id number] documented in this encounter Visit Diagnoses Diagnosis [...] min PRN, 2 doses, Starting on Hermelinda 625 at 1102, Until Hermelinda 6 at 1539, Routine, Recovery (Phase I only), pain score of 3-4 out of 10 fentaNYL (Sublimaze) injection 50 mcg 50 mcg, Intravenous, Every 5 min PRN, 2 doses, Starting on Hermelinda 6 at 1102, Until Hermelinda 6 at 1539, [...] as needed, 2 doses, Starting on Hermelinda 6/12/25 at 1102, Until Hermelinda 01/31/25 at 1539, [...] documented as of this encounter Care Teams Training Generalist Relationship Specialty Start Date End Date Vignesh Pickens MD [address] [place] [address] PCP - General 12/31/24 Cayla Erazo APRN, FREDERICK [address] [facility] [address] [place] [address] Nurse Practitioner Urology 12/20/24 documented as of this encounter
--- OUTSIDE RECORDS SUMMARY | 2025-01-31 08:55 | XMS_ITS | Encounter Summary ---
Author Organization Healthcare Address [address] [place] [address] Care Team Providers Care Benefits Advisor Name Role Phone Cayla Erazo APRN, DNP Unavailable [phone] Vignesh Pickens MD Primary Care Provider [phone] Reason for Visit * Auth/Cert (Routine) Specialty Diagnoses / Procedures Referred By Contelvie t Referred To Contact Diagnoses Gross hematuria Gross hematuria Procedures ME CYSTO/URETERO/PYELOSC,BX &/OR FULG LESN URETEROSCOPY, WITH BIOPSY POSSIBLE STENT PLACEMENTS Ceci Mitchell MD [address] [address] Phone: tel: fax: [facility] [address] [place] [address] Phone: tel: Referral ID Status Reason Start Date Expiration Date Visits Re quested Visits Authorized [id number] 1 1 Encounter Details Date Type Department Care Team (Late st Contact Info) Description 01/31/2025 8:55 AM EDT - 01/31/2025 10:10 AM EDT Surgery [facility] [address] [place] [address] Ceci Mitchell MD [address] [address] URETEROSCOPY,CYSTOSCOP Y, RETROGRADE PYELOGRAM, BILATERAL STENT PLACEMENT [22831 (CPT )] Surgery Details Date/Time Status Location OR Service Patient Class Case Class Case Type Trauma Case? 01/31/2025 8:55 AM Posted [facility]-Electiv e Panel 1 Procedure LRB Anes Op Region Wound Class Comments URETEROSCOPY,CYSTOSCOPY , RETROGRADE PYELOGRAM, BILATERAL STENT PLACEMENT Bilateral General Class II/ Clean Contaminated Surgeon Surgeon Role Service Panel Doug Lundy MD Resident - Assisting 1 Ceci Mitchell MD Primary Urology 1 Gerry Cullen DO Resident - Assisting 1 documented in this encounter Social History Tobacco Use Types Packs/Day Years [...] drink first t rodríguez in the morning (EYE-WEB MASTER) to steady your nerves or to get [...] Sign Reading Time Taken Comments Blood Pressure 131/81 01/31/2025 8:40 AM EDT Pulse 80 01/31/2025 8:40 AM EDT Temperature 36.8 C (98.2 F) 01/31/2025 8:40 AM EDT Respiratory Rate 16 01/31/2025 8:40 AM EDT Oxygen Saturation 97% 01/31/2025 8:50 AM EDT Inhaled Oxygen Concentration - - Weight - - Height - - Body Mass Index - - documented in this encounter Functional Status * Calculated C-SSRS Risk Score (Lifetime/Recent) Answer Date of Assessment Author No Risk Indicated 01/31/2025 8:50 AM EDJovita Green RN * Question Answer Date of Assessment Author 1. Wish to be (Past 1 Month) No 025 8:50 AM Jovita Wood, RN 2. Non-Specific Active Suici annie Thoughts (Past 1 Month) No 01/31/2025 8:50 AM Jovita Wood RN 6. Suicidal Behavior (Lifetime) No 8:50 AM EDT Jovita Orosco RN documented as of this encounter Discharge Instructions * Discharge Instructions* Gerry Cullen, - 01/31/2025 11:14 AM EDT Remove garcía [...] confirm your location ahead of your appointment) [facility] at [facility] [address], [address] Floor, [address], [address] [place] [address] Clinic After Hours [facility] Medical Office Building Urology Clinic [address] [place] [address] Clinic After Hours documented in this encounter [...] time each day. 120 capsule 11 09/26/2024 6 estradiol (Estrace) 0.1 MG/GM vaginal cream Insert [...] 2 times a day. @ 0630 and 1999 5 ipratropium-albu terol (Duo-Neb) 0.5-2.5 mg/3 mL [...] POSTOPERATIVE DIAGNOSIS: Same SURGEON: Ceci Mitchell MD E COMMERCE MERCHANDISING COORDINATOR SURGEON(S): Gerry Cullen DO, Doug Lundy MD [...] the start of the case. A 19 [place]er rigid cystoscope was introduced into the patient's [...] of the renal pelvis. We advanced a Baxter catheter over our sensor wire and performed [...] the orifice with the assistance of a Gekko Technologyenstein catheter, and advanced a wire up to [...] leave stents bilaterally with strings. Used 7 [place]er by 24 cm double-J stents on strings. These were placed without difficulty and intraoperative fluoroscopy was used to confirm appropriate positioning with the proximal curls in the renal pelvises bilaterally in the distal curls in the bladder. An 18 [place]er García catheter was placed at the conclusion [...] Cullen DO PGY-3, Department of Urology Pager: [phone] Cosigned by Ceci Mitchell MD at 01/31/2025 [...] BREAST SURGERY N/A Breast Surgery Reconstruction from [facility] BREAST SURGERY N/A Breast Surgery from [facility] CHOLECYSTECTOMY N/A Cholecystotomy from [facility] KIDNEY SURGERY N/A Kidney Surgery from [facility] KNEE SURGERY N/A Knee Surgery from [facility] MASTECTOMY N/A Breast Surgery Mastectomy from [facility] SHOULDER SURGERY Right Shoulder Surgery Right from [facility] [3] No medications prior to admission. [4] Allergies Allergen Reactions Sulfa Drugs Anaphylaxis Ultram [Tramadol] Swelling lips swell Hydrocodone Unknown - Patient states they do not know rxn details [facility] is unaware of what reaction. Pedi-Pre Tape [place] [Wound Dressing Adhesive] Rash Wellbutrin [Bupropion] Rash [...] Description 03/07/2025 10:00 AM EDT Office Visit [facility] [address] [place] [address] Doug Chapman MD [address] [place] [address] 03/27/2025 10:30 AM EDT Appointment [facility] Ultrasound [address] [place] [address] 03/27/2025 11:50 AM EDT Clinical Support Medical Office Building Lab [address] [place] [address] 03/27/2025 1:00 PM EDT Office Visit Medical Office Building Urology [address] [facility], [address] [place] [address] Cayla Erazo, CONFERENCE ORGANIZER, DNP [address] [facility] [address] [place] [address] 05/16/2025 8:00 AM EDT Office Visit [facility] [address] [facility], [address] [place] [address] Karly Gracia MD [address] [place] [address] 06/07/2025 1:00 PM EDT Office Visit [facility] [address] [place] [address] Tom Iraheta MD [address] [place] [address] documented as of this encounter Procedures Procedure Name Priority Date/Time Associated Diagnosis Comments POCT GLUCOSE METER UNSOLICITED RESULTS Routine 01/31/2025 11:39 AM EDT [place] LESS THAN 1 HOUR (NON-REPORTABLE) Routine 01/31/2025 11:14 AM EDT FUNGAL CULTURE, ROUTINE Routine 01/31/2025 10:23 AM EDT Gross hematuria URINE CULTURE Routine 01/31/2025 10:22 AM EDT Gross hematuria ME CYSTO/URETERO/PYELOS C,BX &/OR FULG LESN 01/31/2025 9:32 [...] for testing. Comment 01/31/2025 11:41 AM EDT [facility] Optical Store Manager ID Abbey Medina 01/31/2025 11:41 AM EDT [facility] Device ID [id number] 01/31/2025 11:41 AM EDT [facility] Specimen Type POC Capillary 01/31/2025 11:41 AM EDT [facility] Blood Capillary blood specimen / Unknown 01/31/2025 11:39 AM EDT 01/31/2025 11:41 AM EDT Ceic Mitchell MD LAB POINT OF CARE TE ST DOCKED DEVICE UNSOLICITED RESULTS Final Result [facility] [address] [place] [address] * [place] Less than 1 Hour Intraoperative [...] Growth Maira glabrata(A) 02/08/2025 11:50 AM EDT [facility] Urine Urinary bladder structure / Unknown 01/31/2025 10:23 AM EDT 01/31/2025 11:38 AM EDT Comment:Pre-op diagnosis: Gross hematuria Ceci Mitchell MD LAB MICROBIOLOGY - GENERAL O RDERABLES Final Result Performing Organization Address City/[facility] Co de Phone Number [facility] [address] [place] [address] * Urine Culture (01/31/2025 10:22 AM EDT) Culture No growth at day 1 02/01/2025 8:02 AM EDT [facility]rine Urinary bladder structure / Unknown 01/31/2025 10:22 AM EDT 01/31/2025 11:38 AM EDT Comment:Pre-op diagnosis: Gross hematuria Ceci Mitchell MD LAB MICROBIOLOGY - GENERAL O RDERABLES Final Result Performing Organization Address City/[facility]/ZIP Co de Phone Number [facility] [address] [place] [address] * (ABNORMAL) POCT glucose meter (01/31/2025 8:47 AM EDT) POCT Glucose 135(H) 74 - 99 mg/dL 01/31/2025 8:49 AM EDT [facility] Comment:Accuracy of a glucos e result [...] Comment 01/31/2025 8:49 AM EDT [facility] Optical Store Manager ID Khai Jamison 02/01/20 8:49 AM EDT [facility] Device ID [id number] 01/31/2025 8:49 AM EDT [facility] Specimen Type POC Capillary 01/31/2025 8:49 AM EDT [facility] Blood Capillary blood specimen / Unknown 01/31/2025 8:47 AM EDT 01/31/2025 8:49 AM EDT us Ceci Mitchell MD LAB POINT OF CARE TE ST DOCKED DEVICE UNSOLICITED RESULTS Final Result Performing Organization Address City/State/[facility] Co de Phone Number [facility] [address] [place] [address] documented in this encounter Visit Diagnoses Diagnosis Urinary retention- Primary Unspecified retention of urine Gross hematuria Gross hematuria documented in this [...] of 10 iohexol (OMNIPaque) 300 MG/ML injection As needed, Starting on Hermelinda 01/31/25 at 1017, Until Hermelinda 01/31/25 at 1125, Routine, Intraprocedure Given 01/31/2025 10:17 AM EDT 50 mL lactated Ringer's infusion 20 mL/hr, Intravenous, Continuous, [...] documented as of this encounter Care Teams Benefits Advisor Relationship Specialty Start Date End Date Vignesh Pickens MD [address] [place] [address] PCP - General 12/31/24 Cayla Erazo, LIZANDRO, DNP [address] [place] [address] Nurse Practitioner Urology 12/20/24 documented as of this encounter
--- OUTSIDE RECORDS SUMMARY | 2025-01-31 09:48 | XMS_ITS | Encounter Summary ---
Author Organization Healthcare Address [address] [place] [address] Care Team Providers Care Director Medicaid Name Role Phone Cayla Erazo APRN, FREDERICK Unavailable [phone] Vignesh Pickens MD Primary Care Provider [phone] Reason for Visit * Auth/Cert (Routine) Specialty Diagnoses / Procedures Referred By Clara stoner Referred To Contact Diagnoses Gross hematuria Gross hematuria Procedures TN CYSTO/URETERO/PYELOSC,BX &/OR FULG LESN URETEROSCOPY, WITH BIOPSY POSSIBLE STENT PLACEMENTS Ceci Mitchell MD [address] [facility] [address] [place] [address] Phone: tel: fax: [facility] [address] [place] [address] Phone: tel: Referral ID Status Reason Start Date Expiration Date Visits Re quested Visits Authorized [id number] 1 1 Encounter Details Date Type Department Care Team (Late st Contact Info) Description 01/31/2025 9:48 AM EDT Anesthesia Event [facility] [address] [place] [address] Nj Sears MD [address] [place] [address] Anesthesia Record Procedure Summary Procedure Name Responsible Anesthesiologist Anesthesia Start Time Anesthesia Stop Time URETEROSCOPY,CYSTOSC OPY, RETROGRADE PYELOGRAM, BILATERAL STENT PLACEMENT (Bilateral) Nj Sears MD 01/31/25 0948 01/31/25 1136 Events Date Time Event Comment 01/31/2025 0930 0947 In Room 0948 An Start The patient was reevaluated immediately before sedation and remains eligible for anesthesia plan. 0948 An Start Data 0955 An Induction The patient was reevaluated immediately before moderate or deep sedation use and before anesthesia induction. 0958 An Intubation 0959 Anesthesia Ready 1010 Carlos Ceftriaxone 1g given for Abx 1010 Carlos 1014 Proc Start 1110 Proc Fin 1122 An Extubation 1122 an stop data 1125 Out of Room 1131 Handoff to Receiving I compl eted my handoff to the receiving clinician during which we: 1. Identified the patient 2. Identified the responsible provider 3. Reviewed the pertinent medical history 4. Discussed the surgical course 5. Reviewed intra-op anesthesia management and issues during anesthesia 6. Set expectations for post-procedure period 7. Allowed opportunity for questions and acknowledgement of understanding. 1136 An Stop Meds Name Total fentaNYL (Sublimaze) injection 50 mcg/mL 100 mcg lidocaine PF (Xylocaine-MPF) 2% 3 mL propofol (Diprivan) injection 10 mg/mL 1 50 mg rocuronium (ZeMuron) injection 10 mg/mL 30 mg dexamethasone (Decadron) injection 4 mg/ mL 8 mg ePHEDrine injection prefilled syringe 5 mg/mL 20 mg phenylephrine (Vitor-Synephrine) prefilled syringe 1 mg/10 mL 2,600 mcg ondansetron (Zofran) injection 2 mg/mL 4 mg sugammadex (Bridion) injection 100 mg/mL 200 mg cefTRIAXone (Rocephin) 1 g i n sodium chloride 0.9% 100 mL IVPB (vial adapter required) 1 g vasopressin (Vasostrict) injection 20 Un its/mL 7 Units lactated Ringer's infusion 1,000 mL * Agents Name O2 * Blood No blood administrations on file. Lines, Drains, and Airways Type Details Placement Removal Wound 08/15/24; 1417; Y; Y es; Pressure inj; Deep Tissue Injury; Coccyx; 02/17/25 (Removed automatically on 02/17/2025 because of a prolonged period with no assessments.); 2248; No Documenta 08/15/24 1417 by Lizette De La Cruz RN 02/17/25 2248 by Lynne, Background User Peripheral IV Placement Date: 01/20 10/16; Placement Time: 0935; Catheter Size: 20 G; Orientation: Posterior, Right; Location: Hand; Site Prep: Chlorhexidine ; Local Anesth: [place]; Technique: Anatomical landmarks; Inserted by: james orosco rn; Insertion Attempts: 1; Patient Tolerance: Tolerated well; Removal Date: 01/31/25; Removal Time: 1332 01/31/25 0935 by Jovita Orosco RN 01/31/25 1332 by Abbey Medina RN ETT Placement Date: 01/20 10/16; Placement Time: 0958 (created via procedure documentation); Mask Ventilation: 1; Technique: Direct laryngoscopy; Type: ETT - single; Single Lumen Tube Size: 7.5 mm; Cuffed: Yes; Laryngoscope: Soha; Blade Size: 3; Location: Oral; Grade View: Grade III; Insertion Attempts: 1; Placement Verification: Auscultation, Capnometry; Airway Comments: Atraumatic. No change to dentition. ; Placed by: TECHNICAL SOURCING RECRUITER; Removal Date: 01/31/25; Removal Time: 1122 01/31/25 0958 by Migue Seay CRNA 01/31/25 1122 by Migue Seay CRNA Urethral Catheter Placement Date: 01/20 10/16; Placement Time: 1054; Inserted by: Dr. Mitchell; Type: Latex, Double-lumen; Size: 18 Fr.; Balloon Size: 10 mL; Urine Returned: Yes; Removal Date: 02/22/25; Removal Time: 0715 01/31/25 1054 by Toan Cadet RN 02/22/25 0715 by Marcia Torres RN documented in this encounter Social History Tobacco [...] time in the past 12 m [facility], were you homeless or living in [...] drink first t rodríguez in the morning (EYE-RECEPTION) to steady your nerves or to get rid of a hangover? 0 08/15/2024 CAGE Questionnaire Score 0 024 Utilities Answer Date Recorded In the past 12 months has e [employer], gas, oil, or water [employer] threatened to shut off services in your home? No 08/20/2024 PHQ-2A Answer Date Recorded Depression Risk 3 09/13/2022 PHQ-9A Answer Date Recorded Depression Risk Score 8 09/13/2022 Comments No Sex and Gender Information Value Date Recorded Sex Assigned at Not on file Legal Sex Female 6:18 PM EDT Gender Identity Not on file Sexual Orientation Not on file documented as of this encounter Functional Status * Calculated C-SSRS Risk Score (Lifetime/Recent) Answer Date of Assessment Author No Risk Indicated 01/31/2025 8:50 AM EDT Jovita Orosco, RN * Question Answer Date of Assessment Author 1. Wish to be (Past 1 Month) No 025 8:50 AM EDT Jovita Orosco, RN 2. Non-Specific Active Suici annie Thoughts (Past 1 Month) No 01/31/2025 8:50 AM EDT Jovita Orosco, RN 6. Suicidal Behavior (Lifetime) No 8:50 AM EDT Jovita Orosco, RN documented as of this encounter Miscellaneous Notes * Anesthesia Postprocedure Evaluation - Migue Seay CRNA - 01/31/2025 11:35 AM EDT Patient: Eileen Tovar Anesthesia Type: general Vitals Value Taken Time BP 110/65 01/31/25 11:30 Temp 36.9 01/31/25 11:35 Pulse 84 01/31/25 11:34 Resp 22 01/31/25 11:34 SpO2 90 % 01/31/25 11:34 Vitals shown include unfiled device data. Anesthesia Post Evaluation Patient location during evaluation: PACU Patient participation: complete - patient participated Level of consciousness: awake Pain management: adequate (pain score 0-3) Airway patency: natural airway Cardiovascular status: acceptable and hemodynamically stable Respiratory status: acceptable, blow-by oxygen, airway suctioned and spontaneous ventilation Hydration status: acceptable Nausea/Vomiting: No No notable events documented. * Anesthesia Procedure Notes - Migue Seay CRNA - 01/31/2025 10:44 AM EDT Associated Order(s): Airway Airway Date/Time: 01/31/2025 9:58 AM Reason: elective Airway not difficult General Information and Staff Patient location during procedure: OR TECHNICAL SOURCING RECRUITER: Migue Seay CRNA Performed: TECHNICAL SOURCING RECRUITER Patient Condition Indications for airway management: anesthesia Patient position: sniffing Final Airway Details Final airway type: endotracheal airway Successful airway: ETT Cuffed: yes Successful intubation technique: direct laryngoscopy Adjuncts used in placement: intubating stylet Endotracheal tube insertion site: oral Blade: Soha Blade size: #3 ETT size (mm): 7.5 Cormack-Lehane Classification: grade III - view of epiglottis only Placement verified by: chest auscultation and capnometry Measured from: lips Additional Comments Atraumatic. No change to dentition. * Anesthesia Preprocedure Evaluation - Nj Sears MD - 01/31/2025 8:45 AM EDT Images from the original note were not included. Patient: Eileen Tovar Procedure Information Date/Time: 01/31/25 0855 Procedure: URETEROSCOPY, WITH BIOPSY POSSIBLE STENT PLACEMENTS (Bilateral) Location: [address] / [place] Surgeons: Ceci Mitchell MD Department of Anesthesiology Perioperative Critical Care and Pain Medicine HPI Eileen Tovar is a 64 y.o. female now scheduled for above listed procedure URETEROSCOPY, WITH BIOPSY POSSIBLE STENT PLACEMENTS (Bilateral). Past 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[1] Surgical History[2] Current Outpatient Medications Medication Instructions acetaminophen (TYLENOL) 500 mg, Every 6 hours PRN anastrozole (ARIMIDEX) 1 mg, Daily ARIPiprazole (ABILIFY) 5 mg, Daily Artificial Tears ophthalmic solution Administer 2 drops into both eyes 3 times a day as needed. ascorbic acid (VITAMIN C) 500 mg, 2 times daily atorvastatin (Lipitor) 40 MG tablet Take 1 tablet by mouth daily. azelastine (Astelin) 0.1 % nasal spray 2 sprays, 2 times daily baclofen (Lioresal) 10 MG tablet Take 1 tablet by mouth 3 times a day. Basaglar KwikPen 70 Units, 2 times daily Breo Ellipta 100-25 MCG/ACT aerosol powder 1 puff, Daily calcitriol (ROCALTROL) 0.25 mcg, Daily carvedilol (Coreg) 12.5 MG tablet Take 1 tablet by mouth 2 times a day with meals. cholecalciferol (VITAMIN D3) 1,000 Units, 2 times daily clopidogrel (PLAVIX) 75 mg, Daily cyanocobalamin (VITAMIN B-12) 1,000 mcg, Daily D-Mannose 2,000 mg, Oral, Daily dextromethorphan-guaiFENesin (Robitussin-DM) 10-100 MG/5ML liquid 10 mL, Every 4 hours PRN diphenhydrAMINE (BENADRYL) 25 mg, 2 times daily PRN DULoxetine (CYMBALTA) 30 mg, Daily DULoxetine (CYMBALTA) 60 mg, Daily estradiol (Estrace) 0.1 MG/GM vaginal cream Insert 1 gram into the vagina 3x/week fentaNYL (Duragesic) 12 MCG/HR 1 patch, Transdermal, Every 72 hours ferrous sulfate 325 mg, Daily with breakfast fluticasone (Flonase) 50 MCG/ACT nasal spray 1 spray, 2 times daily guaiFENesin (GUAIASORB PO) 10 mL, Every 4 hours PRN insulin aspart, w/niacinamide, (Fiasp) 100 UNIT/ML solution vial 2 times daily ipratropium-albuterol (Duo-Neb) 0.5-2.5 mg/3 mL nebulizer solution 3 mL, Every 6 hours PRN loperamide (IMODIUM) 2 mg, Every 4 hours PRN magnesium oxide (MAG-OX) 400 mg, 2 times daily mirabegron ER (MYRBETRIQ) 25 mg, Every morning multivitamin (Theragran-M) tablet 1 tablet, Daily ondansetron (ZOFRAN) 4 mg, Every 6 hours PRN oxyCODONE-acetaminophen (Percocet) 5-325 MG tablet 1 tablet, Oral, 2 times daily PRN pantoprazole (PROTONIX) 20 mg, Daily before breakfast pregabalin (LYRICA) 50 mg, Oral, 2 times daily rivaroxaban (XARELTO) 15 mg, Every evening traZODone (Desyrel) 300 MG tablet traZODone (DESYREL) 300 mg, Nightly trospium (SANCTURA) 20 mg, Oral, 2 times daily Vibegron 75 mg, Oral, Daily, Take one pill by mouth daily. Allergies[3] Social History[4] Family History[5] OBJECTIVE DATA There were no vitals filed for this visit. [place] body weight: 54.7 kg (120 lb 9.5 oz) Adjusted ideal body weight: 67.1 kg (147 lb 15.3 oz) LABS Lab Results Component Value Date WBC 5.78 [...] ALKPHOS 106 08/18/2024 BILITOT <0.2 (L) 08/18/2024 Diabetic Labs Lab Results Component Value Date HGBA1C 8.8 (H) 03/05/2014 EKG Encounter Date: 11/05/24 ECG Adult (Now - Performed in your clinic) Result Value EKG DIAGNOSIS CLASS Abnormal Ventricular Rate 77 Atrial Rate 77 TN Interval 180 QRSD Interval 124 QT Interval 416 QTC Interval 470 P [place] 23 R [place] 268 T Wave [place] 67 Diagnosis Normal sinus rhythm Diagnosis Right bundle branch block Diagnosis Abnormal ECG Diagnosis Diagnosis Confirmed by Ethan Rosa ([id number]) on 11/05/2024 11:14:13 AM *Note: Due to a large number of results and/or encounters for the requested time period, some results have not been displayed. A complete set of results can be found in Results Review. ECHO Echo, Adult Transthoracic Complete Result Date: 12/04/2024 Technically difficult due to patient's clinical status. The left ventricle is normal size. There isconcentric remodeling. No left ventricular mass or thrombus is seen. The LVEF is visually estimatedat 35 - 40%. Unable to assess diastolic function due to E-A fusion. Due to poor image quality, regional wall motion was not interpretable. The right ventricle is grossly normal in size. The right vent ricular systolic function is normal. No hemodynamically significant valvular disease. PFTs No results found for: [id number] , [id number] , LEU1TLI , FVCPRED Relevant Problems Cardio (+) Asymptomatic bilateral carotid artery stenosis (+) Atrial premature depolarization (+) CAD (coronary artery disease), [place] coronary artery (+) Deep venous thrombosis of lower extremity (+) Dyspnea, unspecified (+) Essential (primary) hypertension (+) Old myocardial infarction (+) Other specified cardiac arrhythmias (+) PVD (peripheral vascular disease) (CMS/HCC) (+) Peripheral vascular disease, unspecified (CMS/HCC) (+) Unspecified right bundle-branch block (+) Venous embolism Endo (+) Controlled diabetes mellitus type II without complication (+) Nontoxic single thyroid nodule (+) Type 2 diabetes mellitus with diabetic chronic kidney disease (CMS/HCC) (+) Type 2 diabetes mellitus without complication GI (+) Fecal impaction (CMS/HCC) (+) GERD without esophagitis (+) Morbid (severe) obesity due to excess calories (CMS/HCC) /Renal (+) Acute kidney injury superimposed on CKD (CMS/HCC) (+) Calculus of kidney (+) Chronic kidney disease, stage 3a (CMS/HCC) (+) Cyst of kidney, acquired (+) Hydronephrosis with renal and ureteral calculous obstruction (+) Hypertensive chronic kidney disease with stage 1 through stage 4 chronic kidney disease, or unspecified chronic kidney disease (+) Hypertensive heart and chronic kidney disease with heart failure and stage 1 through stage 4 chronic kidney disease, or unspecified chronic kidney disease (CMS/HCC) (+) Kidney infection (+) Pyelonephritis (+) Recurrent UTI (+) Stage 3 chronic kidney disease (CMS/HCC) (+) Tubulo-interstitial nephritis, not specified as acute or chronic (+) Type 2 diabetes mellitus with diabetic chronic kidney disease (CMS/HCC) (+) Unspecified hydronephrosis Neuro/Psych (+) Headache, unspecified (+) Hx of AKA (above knee amputation), left (CMS/HCC) (+) Stroke (CMS/HCC) Pulmonary (+) COPD (chronic obstructive pulmonary disease) (CMS/HCC) (+) Mixed simple and mucopurulent chronic bronchitis (CMS/HCC) Other (+) Arthritis Anesthesia Evaluation Clinical information reviewed: NPO Status Physical Exam Airway Mallampati: III Mouth opening: normal TM distance: <3 FB Neck ROM: full Cardiovascular Rhythm: regular Rate: normal Dental Pulmonary Comments: Symmetric chest rise, moving air bilat, no increased wob Neurological Skin Musculoskeletal Extremities Anesthesia Plan ASA 3 Plan was reviewed with: TECHNICAL SOURCING RECRUITER Anesthesia technique(s) discussed with the patient/family: general Anesthesia plan agreed upon was: general Comment: Risks, benefits and alternatives for anesthesia discussed with patient. Patient understands the risks of anesthesia and wishes to proceed with anesthesia at this time. All questions were answered to patient's satisfaction. Anesthetic plan and risks discussed with patient. Use of blood products discussed with patient who. Additional Equipment Requests [1] Past 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: Diagnosis Date Anxiety [...] BREAST SURGERY N/A Breast Surgery Reconstruction from [facility] BREAST SURGERY N/A Breast Surgery from [facility] CHOLECYSTECTOMY N/A Cholecystotomy from [facility] KIDNEY SURGERY N/A Kidney Surgery from [facility] KNEE SURGERY N/A Knee Surgery from [facility] MASTECTOMY N/A Breast Surgery Mastectomy from [facility] SHOULDER SURGERY Right Shoulder Surgery Right from [facility] [3] Allergies Allergen Reactions Sulfa Drugs Anaphylaxis Ultram [Tramadol] Swelling lips swell Hydrocodone Unknown - Patient states they do not know rxn details Nsg. Healthcare is unaware of what reaction. Pedi-Pre Tape [place] [Wound Dressing Adhesive] Rash Wellbutrin [Bupropion] Rash [4] Social History Tobacco Use Smoking status: Former Current packs/day: 0.00 Types: Cigarettes Quit date: 07/22/2022 Years since quittin.5 Passive exposure: Past Smokeless tobacco: Never Vaping Use Vaping status: Never Used Substance Use Topics Alcohol use: Not Currently Drug use: Never [5] Family History Problem Relation Name Age of Onset Cancer Mother Stroke Mother Cancer Father Menorrhagia Father Breast cancer Mother's Sister Cancer Mother's Sister Malig Hyperthermia Neg Hx Anesthesia problems Neg Hx documented in this encounter Plan of Treatment Upcoming Encounters Date Type Department Care Team ([facility] st Contact Info) Description 03/07/2025 10:00 AM EDT Office Visit [facility] Urology [address] [place] [address] Doug Chapman MD [address] [address] 03/27/2025 10:30 AM EDT Appointment [facility] Ultrasound [address] [place] [address] 03/27/2025 11:50 AM EDT Clinical Support Medical Office Building Lab [address] [place] [address] 03/27/2025 1:00 PM EDT Office Visit Medical [facility] Building Urology [address] [facility], [address] [place] [address] Cayla Erazo, RETURNED GOODS REPAIRER, DNP [address] [facility] [address] [place] [address] 05/16/2025 8:00 AM EDT Office Visit [facility] [place] [address] [facility], [address] [place] [address] Karly Gracia MD [address] [place] [address] 06/07/2025 1:00 PM EDT Office Visit [facility] [address] [place] [address] Tom Iraheta MD [address] [place] [phone] documented as of this encounter Procedures Procedure Name Priority Date/Time Associated Diagnosis Comments PB ANESTHESIA PLACEHOLDER Routine 01/31/2025 9:58 AM EDT TN AN ELECTIVE ENDOTRACHEAL AIRWAY Routine 01/31/2025 9:58 AM EDT documented in this encounter Results * TN AN ELECTIVE ENDOTRACHEAL AIRWAY, PB ANESTHESIA PLACEHOLDER (01/31/2025 9:58 AM EDT) Narrative Migue Seay CRNA - 01/31/2025 9:58 AM EDT Migue Seay CRNA 01/31/2025 10:45 AM Airway Date/Time: 01/31/2025 9:58 AM Reason: elective Airway not difficult General Information and Staff Patient location during procedure: OR TECHNICAL SOURCING RECRUITER: Migue Seay CRNA Performed: LORETTA Patient Condition Indications for airway management: anesthesia Patient position: sniffing Final Airway Details Final airway type: endotracheal airway Successful airway: ETT Cuffed: yes Successful intubation technique: direct laryngoscopy Adjuncts used in placement: intubating stylet Endotracheal tube insertion site: oral Blade: Soha Blade size: #3 ETT size (mm): 7.5 Cormack-Lehane Classification: grade III - view of epiglottis only Placement verified by: chest auscultation and capnometry Measured from: lips Additional Comments Atraumatic. No change to dentition. us Nj Sears MD ANESTHESIA ORDERABLES Final Result documented in this encounter Visit Diagnoses Not on filedocumented in this encounter Administered Medications Inactive Administered Medications - up to 3 most recent administrations Medication Order MAR Action Action Date Dose Rate Site cefTRIAXone (Rocephin) 1 g in sodium chloride 0.9% 100 mL IVPB (vial adapter required) 1 g, Intravenous, Once, 1 dose, On [place] 01/31/25 at 1130, Routine New Bag 01/31/2025 10:10 AM EDT 1 g dexamethasone (Decadron) injection Intravenous, As needed, Starting on [place] 01/31/25 at 1024, Until [place] 01/31/25 at 1136, Routine, Anesthesia Intraprocedure Given 01/31/2025 10:24 AM EDT 8 mg ePHEDrine Sulfate (Akovaz) injection Intravenous, As needed, Starting on [place] 01/31/25 at 1031, Until [place] 01/31/25 at 1136, Routine, Anesthesia Intraprocedure Given 01/31/2025 10:36 AM EDT 10 mg Given 01/31/2025 10:31 AM EDT 10 mg fentaNYL (Sublimaze) injection Intravenous, As needed, Starting on [place] 01/31/25 at 0955, Until [place] 01/31/25 at 1136, Routine, Anesthesia Intraprocedure Given 01/31/2025 9:55 AM EDT 100 mcg lactated Ringer's infusion 20 mL/hr, Intravenous, Continuous, Starting on [place] 01/31/25 at 0930, Until [place] 01/31/25 at 1539, Routine New Bag 01/31/2025 9:50 AM EDT Continued by Anesthesia 01/31/2025 9:48 AM EDT 20 mL/hr New Bag 01/31/2025 9:35 AM EDT 20 mL/hr 20 mL/hr lidocaine PF (Xylocaine) 2 % injection Intravenous, As needed, Starting on [place] 01/31/25 at 0955, Until [place] 01/31/25 at 1136, Routine, Anesthesia Intraprocedure Given 01/31/2025 9:55 AM EDT 3 mL ondansetron (Zofran) injection Intravenous, As needed, Starting on [place] 01/31/25 at 1024, Until [place] 01/31/25 at 1136, Routine, Anesthesia Intraprocedure Given 01/31/2025 10:24 AM EDT 4 mg phenylephrine in NS (Vitor-Synephrine) 100 mcg/mL prefilled syringe Intravenous, As needed, Starting on [place] 01/31/25 at 1007, Until [place] 01/31/25 at 1136, Routine, Anesthesia Intraprocedure Given 01/31/2025 10:42 AM EDT 200 mcg Given 01/31/2025 10:39 AM EDT 300 mcg Given 01/31/2025 10:29 AM EDT 400 mcg propofol (Diprivan) injection Intravenous, As needed, Starting on [place] 01/31/25 at 0956, Until [place] 01/31/25 at 1136, Routine, Anesthesia Intraprocedure Given 01/31/2025 9:56 AM EDT 150 mg rocuronium (ZeMuron) injection Intravenous, As needed, Starting on [place] 01/31/25 at 0956, Until [place] 01/31/25 at 1136, Routine, Anesthesia Intraprocedure Given 01/31/2025 9:56 AM EDT 30 mg sugammadex (Bridion) 100 MG/ML injection Intravenous, As needed, Starting on [place] 01/31/25 at 1100, Until [place] 01/31/25 at 1136, Routine, Anesthesia Intraprocedure Given 01/31/2025 11:00 AM EDT 200 mg vasopressin (Vasostrict) injection Subcutaneous, As needed, Starting on [place] 01/31/25 at 1053, Until [place] 01/31/25 at 1136, Routine, Anesthesia Intraprocedure Given 01/31/2025 11:04 AM EDT 3 Units Given 01/31/2025 10:53 AM EDT 1 Units Given 01/31/2025 10:52 AM EDT 3 Units documented in this encounter Additional Health Concerns [...] as of this encounter Care Teams Director Medicaid Relationship Specialty Start Date End Date Vignesh Pickens MD [address] [place] [address] PCP - General 12/31/24 Cayla Erazo, LIZANDRO, DNP [address] [place] [address] Nurse Practitioner Urology 12/20/24 documented as of this encounter
--- OUTSIDE RECORDS SUMMARY | 2025-02-22 18:13 | XMS_ITS | Encounter Summary ---
Author Organization [facility] Address [address] [id number] Care Team Providers Care Pumper Gauger Apprentice Name Role Phone Cayla Erazo APRN, DNP Unavailable [phone] Vignesh Pickens MD Primary Care Provider [phone] Reason for Visit * Reason Comments Altered Mental Status * Auth/Cert (Routine) Specialty Diagnoses / Procedures Referred By Contac t Referred To Contact Diagnoses Sepsis (CMS/HCC) UTI, CKD, Hyponatremia, COPD exacerbation Bobby Parra MD [address] [place] [address] Phone: tel: fax: P[facility] A Inpatient [address] [place] [address] Referral ID Status Reason Start Date Expiration Date Visits Re quested Visits Authorized [id number] 1 1 Encounter Details Date Type Department Care Team (Latest Contact Info) Description 02/22/2025 6:13 PM EDT - 03/02/2025 11:04 AM EDT Hospital Encounter P[facility] A Inpatient [address] [place] [id number] Luda Morton MD [address] [place] [address] Bobby Parra MD [address] [place] [address] Luda Ralph MD [address] [place] [address] Ludy Hill MD [address] [facility] [address] [place] [address] Madonna Singleton MD [address] [place] [address] Acute respiratory failure with hypoxia [...] organism (CMS/HCC); Chronic diastolic (congestive) heart failure ([facility]/HCC); 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, were you homeless or living [...] drink first t rodríguez in the morning (EYE-RISK ENGINEER) to steady your nerves or to [...] each day. 120 capsule 11 09/26/2024 6 DULoxetine (Cymbalta) [address] capsule Take 1 capsule by mouth daily for 7 doses. Do not crush or chew. 03/02/2025 5 estradiol (Estrace) 0.1 MG/GM vaginal cream Insert [...] as of this encounter Miscellaneous Notes * Care Plan - Gayle Light RN [...] Intervention: Prevent Skin Injury Flowsheets Taken 03/02/2025 0800 by Stefanie Frances I Body Position: turned Taken 02/28/2025 0800 by [...] Plan Flowsheets Taken 03/01/2025 0925 by Anthony Vuaghn Discharge Facility/Level of Care Needs: [facility] Facility Current Outpatient/Agency/Support Group: snf facility Transportation Anticipated: ([facility]) other (see comments) Outpatient/Agency/Support Group Needs: snf facility Transportation Concerns: none Concerns to be Addressed: discharge planning Readmission Within the Last 30 Days: other (see comments) Patient/Family Anticipated Services at Transition: snf rehabilitation services Patient/Family Anticipates Transition to: long-term [...] technique maintained Taken 02/24/20252002 by Daniela Mcbride, RN Stabilization Measures: airway opened Taken 02/22/20252233 by Daniela Mcbride, RN Infection Prevention: environmental surveillance performed Intervention: Promote Stabilization Flowsheets Taken 02/28/2025815 by Gayle Light RN Fluid/Electrolyte Management: fluids adjusted Fever Reduction/Comfort Measures: lightweight bedding lightweight clothing Taken 02/23/2025 1254 by Temi Mao RN Lung Protection Measures: fluid excess minimized Intervention: Promote Recovery Flowsheets Taken 03/02/2025 08 by Stefanie Frances I Activity Management: activity adjusted per tolerance activity encouraged Taken 02/28/2025 0816 by Gayle Light RN [...] Care Transition Intervention: Promote Activity and Functional [place] Flowsheets Taken 03/02/2025 08 by Gayle Light [...] (HOB) Positioning: HOB at 30-45 degrees Taken 02/28/2025815 by Gayle Light RN Pressure Reduction Techniques: [...] EDT Patient discharged at approximately 1040 via [facility] wheelchair transport. Report called to JHONNY Hawkins at [facility] in [place]. All appropriate paperwork and personal belongings sent withpatient. * Lawanda OnIR - Gayle Light RN - 03/02/2025 9:03 AM EDT Images from the original note were not included. [address] Sepsis Sepsis is a very serious condition. [...] (ICU). Last Reviewed Date: 2023 00:00:00 ?? [id number] The [employer]. All rights reserved. This information is not intended as a substitute for professional medical care. Always follow your healthcare professional's instructions. * Lawanda PappasWILLIAM - Gayle Light RN - 03/02/2025 9:03 AM EDT Images from the original note were not included. [id number] Discharge Instructions for Acute Kidney Injury You [...] tiredness Last Reviewed Date: 2022 00:00:00 ?? [id number] The [employer]. All rights reserved. This information is not intended as a substitute for professional medical care. Always follow your healthcare professional's instructions. * Discharge Summary - Madonna Singleton MD - 03/02/2025 8:47 AM EDT Hospitalization Admit Date/Time: 02/22/2025 6:13 PM Admitting Attending: Bobby Parra Discharge Date: 03/02/25 Discharge Attending Physician: Madonna Singleton MD PCP name and Address: Vignesh Pickens MD [address] [facility] / [place] [address] Referring provider name and address: Jordan Carl MD [address] [place] [facility] [address] [place] [address] Chief Concern, Brief History of Present Illness, [...] negative infectious workup. She was extubated to SD w/o complications on 02/24/25. Currently saturating well [...] home meds continue Mirabegron HFrEF 2/2 [facility] - 11/2024 LVEF 35-40% - Current [...] Your Medications These medications were sent to [facility] [place] [address] [address] [facility] [address] fentaNYL 12 MCG/HR naloxone 4 mg/0.1 mL [...] Resolved Hospital Problems Hospital * (Principal) Sepsis (CMS/[facility]) Post Discharge Instructions Take meds as precribed Outpatient Follow-Up Future Appointments Date Time Provider Department Center 03/07/2025 10:00 AM Doug Chapman MD [facility] 03/27/2025 10:30 AM [facility] 03/27/2025 11:50 AM [facility] REPRESENTATIVE [facility] None 03/27/2025 1:00 PM Cayla Erazo APRN, [facility] 05/16/2025 8:00 AM Karly Gracia MD [facility] 06/07/2025 1:00 PM Tom Iraheta MD [...] Note Eileen May 64 y.o. female CSN: [id number] Admission: 02/22/2025 6:13 PM Primary Problem: Sepsis [...] Chair transport scheduled today at 9am To: [facility] Report: [phone] Discharge Summary fax: [phone] Escribe new meds/controls to: [facility] Jeanette SW will remain available through discharge if needs arise. Daniela Thomas BOOKING SUPERVISOR, CASE ADVOCATE Customer Operations Intern * Gayle De León RN - 03/02/2025 8:44 AM EDT Images from the original note were not included. [id number] Acute Kidney Injury: Care Instructions Overview Acute [...] this instruction, always ask your healthcare professional. [email or web address] disclaims any warranty or liability for your use of this information. ?? [email or web address]. * Lawanda Garcias - Gayle Light RN - 03/02/2025 8:44 AM EDT Images from the original note were not included. [id number] Urinary Tract Infections in Women Urinary tract [...] started. Last Reviewed Date: 2023 00:00:00 ?? [id number] The [employer]. All rights reserved. This information is not [...] Anthony Vaughn Discharge Facility/Level of Care Needs: [facility] Facility Current Outpatient/Agency/Support Group: snf facility Transportation Anticipated: ([facility]) other (see comments) Outpatient/Agency/Support Group Needs: snf facility Transportation Concerns: none Concerns to be Addressed: discharge planning Readmission Within the Last 30 Days: other (see comments) Patient/Family Anticipated Services at Transition: snf rehabilitation services Patient/Family Anticipates Transition to: long-term [...] Anthony Vaughn Discharge Facility/Level of Care Needs: [facility] Facility Current Outpatient/Agency/Support Group: snf facility Transportation Anticipated: ([facility]) other (see comments) Outpatient/Agency/Support Group Needs: snf facility Transportation Concerns: none Concerns to be Addressed: discharge planning Readmission Within the Last 30 Days: other (see comments) Patient/Family Anticipated Services at Transition: snf rehabilitation services Patient/Family Anticipates Transition to: long-term [...] minimized Intervention: Promote Recovery Flowsheets Taken 03/01/2025 0800 Activity Management: bedrest activity adjusted per tolerance Taken 02/28/2025815 Airway/Ventilation Management: airway patency maintained calming measures promoted oxygen therapy provided position adjusted Sleep/Rest Enhancement: consistent schedule promoted natural light exposure provided regular sleep/rest pattern promoted relaxation techniques promoted Problem: Oral Intake Inadequate Goal: Improved Oral Intake Outcome: Ongoing, Progressing Intervention: Promote and Optimize Oral Intake Flowsheets (Taken 02/25/2025 191 by Bassem Jay RN) Oral Nutrition Promotion: physical activity promoted Nutrition Interventions: diet adjusted food preferences provided Problem: Mobility Impairment Goal: Optimal Mobility Outcome: Ongoing, Progressing Intervention: Optimize Mobility Flowsheets Taken 03/01/2025 0800 by Gayle Light RN Activity Management: bedrest activity adjusted per tolerance Taken 02/27/2025 1435 by Daniela Carroll APRN, DNP Positioning/Transfer Devices: pillows Problem: Self-Care Deficit Goal: Improved Ability to Complete Activities of Daily Living Outcome: Ongoing, Progressing Intervention: Promote Activity and Functional [place] Flowsheets Taken 03/01/2025 0800 by Gayle Light [...] clutter-free environment maintained * Clinician Note - Stilz, Bassem J - 03/01/2025 3:00 PM EDT Physical Therapy [...] negative infectious workup. She was extubated to SD w/o complications on 02/24/25. Currently saturating well [...] PAL MURF, Bcx NGTD S/p extubation 02/24, SD for SPO2 92%+ PLAN: Supportive care for [...] cath resumed home meds continue Mirabegron HFrEF / [facility] - 11/2024 LVEF 35-40% - Current [...] meds today F: soft and bite sized, PICKING BELT OPERATOR eval Code Status: Assume Full Medically Ready for Discharge: * Progress Notes - Anthony Vaughn - 03/01/2025 9:27 AM EDT Case Management Discharge Note Eileen May 64 y.o. female CSN: [id number] Admission: 02/22/2025 6:13 PM Primary Problem: Sepsis (CMS/HCC) Primary Car Repair Supervisor: Primary Caregiver: Private caregiver Assistance Available at Discharge: Current Outpatient/Agency/Support Group: snf facility Availability of Care Givers (#Hours): 24 hours Family/Car Repair Supervisor(s) Willingness Assessed to care for patient at home: Yes Family/Car Repair Supervisor(s) Readiness Assessed to care for patient at home: Yes Housing Circumstances-Z Codes: Housing Circumstances (select all that apply): None Applicable Discharge Facility/Level of Care Needs: Discharge Facility/Level of Care Needs: [facility] Facility Patient/Family Anticipated Services at Transition: Patient/Family Anticipated Services at Transition: snf, rehabilitation services DME/Equipment Needed after Discharge: Equipment [...] Notice Recieved By: Pt at bedside Follow-up: [facility] [address] [place] [id number] Follow up Vignesh Pickens MD [address] [facility] [address] Follow up Discharge Transportation: Transportation Anticipated: other (see comments) ([facility]) Transportation Home at Discharge: Other(Comment) ([facility]) Has discharge transport been arranged?: Yes What day is the transport expected?: 03/01/25 What time is the transport expected?: 0900 Follow Up Transport: Transportation Needed to Follow up Appoinments: Other(Comment) ([place]) Additional Comments: Plan of care reviewed with Pt's care team; Pt is medically ready for discharge. Pt is a resident [facility] in [place]. [facility] Pt meets 300% fpg. Weekend CM to fax Pt's discharge summary to [phone], and bedside RN to call report to [phone]. Facility uses [facility] in [place]. SW met with Pt at bedside, who [...] negative infectious workup. She was extubated to SD w/o complications on 02/24/25. Currently saturating well [...] PAL MURF, Bcx NGTD S/p extubation 02/24, SD for SPO2 92%+ PLAN: Supportive care for [...] meds today F: soft and bite sized, PICKING BELT OPERATOR eval Code Status: Assume Full Medically Ready for Discharge: * Progress Notes - Anthony Vaughn - 02/28/2025 11:11 AM EDT Case Management Adult Progress Note Eileen May 64 y.o. female CSN: [id number] Admission: 02/22/2025 6:13 PM Primary Problem: Sepsis (CMS/HCC) Anticipated Discharge Date: TBD Has Discharge Plans Changed? No Additional Comments Plan of care reviewed with Pt's care team; Pt is not medically ready for discharge. Dental extraction planned for today. Anticipate discharge readiness tomorrow. Pt is a resident at [facility]. SW sent updated notes to Pt's facility via [facility] and verified Pt can return when ready. Anticipate Pt needing [facility] transport arranged upon discharge. Anthony Vaughn * Care Plan - Gayle Light RN - 02/28/2025 8:24 AM EDT Problem: Infection Goal: Absence of Infection Signs and Symptoms 02/28/2025 0824 by Gayle Light RN Outcome: Ongoing, Progressing 02/28/2025 0816 by Gayle Light RN Outcome: Ongoing, Progressing Intervention: Prevent or Manage Infection Flowsheets Taken 02/28/2025 0816 by Gayle Light RN Infection Management: aseptic technique maintained Fever Reduction/Comfort Measures: lightweight bedding lightweight clothing Taken 02/28/2025 0600 by Palapas, Pat Ame S Isolation Precautions: precautions maintained droplet protective Problem: [...] by Gayle Light RN Flowsheets Taken 02/28/2025 0730 by Gayle Light RN Body Position: turned Taken 02/26/2025 1100 by Bassem Jay RN Skin Protection: incontinence pads utilized skin sealant/moisture barrier applied 02/28/2025 0816 by Gayle Light RN Flowsheets Taken 02/28/2025 0730 by Gayle Light RN Body Position: turned Taken 02/26/2025 1100 by Bassem Jay RN Skin Protection: incontinence pads utilized skin sealant/moisture barrier applied Intervention: Prevent and Manage VTE (Venous Thromboembolism) Risk 02/28/2025823 by Gayle Light RN Flowsheets (Taken 02/28/2025 08) VTE Prevention/Management: right SCDs (sequential compression devices) on 02/28/2025 0816 by Gayle Light RN Flowsheets (Taken 02/28/2025 [...] comments) Current Outpatient/Agency/Support Group: inpatient rehabilitation facility OT,PT,PICKING BELT OPERATOR Anticipated Changes Related to Illness: inability to care for self Transportation Anticipated: medical transport Outpatient/Agency/Support Group Needs: inpatient rehabilitation facility Transportation Concerns: none Current Discharge Risk: physical impairment Concerns to be Addressed: basic needs discharge planning Readmission Within the Last 30 Days: previous discharge plan unsuccessful Patient/Family Anticipated Services at Transition: porter sample case durable medical equipment rehabilitation services Patient/Family Anticipates [...] comments) Current Outpatient/Agency/Support Group: inpatient rehabilitation facility OT,PT,PICKING BELT OPERATOR Anticipated Changes Related to Illness: inability to care for self Transportation Anticipated: medical transport Outpatient/Agency/Support Group Needs: inpatient rehabilitation facility Transportation Concerns: none Current Discharge Risk: physical impairment Concerns to be Addressed: basic needs discharge planning Readmission Within the Last 30 Days: previous discharge plan unsuccessful Patient/Family Anticipated Services at Transition: porter sample case durable medical equipment rehabilitation services Patient/Family Anticipates [...] maintained droplet protective Taken 02/24/20252002 by Daniela Mcbried RN Stabilization Measures: airway opened Taken 02/22/2025 2234 by Daniela Mcbride RN Infection Prevention: environmental surveillance performed Intervention: Promote Stabilization 02/28/2025823 by Gayle Light RN Flowsheets Taken 02/28/2025815 by Gayle Light RN Fluid/Electrolyte Management: fluids adjusted Fever Reduction/Comfort Measures: lightweight bedding lightweight clothing Taken 02/23/2025 1254 by Temi Mao RN Lung Protection Measures: fluid excess minimized 02/28/2025815 by Gayle Light RN Flowsheets Taken 02/28/2025815 by Gayle Light RN Fluid/Electrolyte Management: fluids adjusted Fever Reduction/Comfort Measures: lightweight bedding lightweight clothing Taken 02/23/2025 1254 by Temi Mao RN Lung Protection Measures: fluid excess minimized Intervention: Promote Recovery 02/28/2025823 by Gayle Light RN Flowsheets Taken 02/28/2025815 by Gayle Light RN Airway/Ventilation Management: airway patency maintained calming measures promoted oxygen therapy provided position adjusted Sleep/Rest Enhancement: consistent schedule promoted natural light exposure provided regular sleep/rest pattern promoted relaxation techniques promoted Taken 02/28/2025 0600 by Pat Young Activity Management: activity adjusted per tolerance 02/28/2025815 by Gayle Light RN Flowsheets (Taken 02/28/2025815) Airway/Ventilation Management: airway patency maintained calming measures [...] Carroll APRN, DNP Positioning/Transfer Devices: pillows 02/28/2025 0816 by Gayle Light RN Flowsheets Taken 02/28/2025 0600 by Pat Young Activity Management: activity adjusted per tolerance Taken 02/27/2025 1435 by Daniela Carroll APRN, DNP Positioning/Transfer Devices: pillows Problem: Self-Care Deficit Goal: Improved Ability to Complete Activities of Daily Living Outcome: Ongoing, Progressing Intervention: Promote Activity and Functional [place] Flowsheets Taken 02/28/2025 0816 by Gayle Light [...] RN Fever Reduction/Comfort Measures: lightweight bedding Taken 02/22/20254 by Daniela Mcbride RN Infection Management: aseptic [...] negative infectious workup. She was extubated to SD w/o complications on 02/24/25. Mentating well back to baseline, schedule for dental procedure tomorrow * Progress Notes - Chuy Graham W, DO - 02/27/2025 2:56 PM EDT Images [...] negative infectious workup. She was extubated to SD w/o complications on 02/24/25. Events of past [...] in the posterior aspect of tooth #31. Fountain wear in tooth number 8, 9 and [...] Per this written report. Drafted by Lucas Crisotbal MD on 02/27/2025 12:22 PM Final report [...] negative infectious workup. She was extubated to SD w/o complications on 02/24/25. #Acute hypoxic respiratory [...] meds - continue Mirabegron #HFrEF 2/2 [facility] - 11/2024 LVEF 35-40% - Current [...] meds today F: soft and bite sized, PICKING BELT OPERATOR eval A: oxy, acetaminophen, fentanyl patch (home [...] Chuy Graham, DO Internal Medicine PGY-2 Pager [phone]; Epic Chat preferred Procedures [1] [2] PRN [...] negative infectious workup. She was extubated to SD w/o complications on 02/24/25. During her hospital [...] is being transferred from ICU team to [facility] Team 14 Major Active Problems: Currently active [...] meds - continue Mirabegron #HFrEF 2/2 [facility] - 11/2024 LVEF 35-40% - Current [...] meds today F: soft and bite sized, PICKING BELT OPERATOR eval A: oxy, acetaminophen, fentanyl patch (home [...] Lunch Supplement frequency: Dinner Lunch supplement: Tony Cayey Quantity for Lunch of Tony Cayey Packet One Dinner supplement: Tony Fruit Punch [...] Chuy Graham DO Internal Medicine PGY-2 Pager [phone]; Epic Chat preferred * Care Plan - [...] (Individualized) Outcome: Ongoing, Progressing Flowsheets (Taken 02/26/2025 08 by Bassem Jay, RN) Patient/Family-Specific Goals (Include Timeframe): patient pain [...] Taken 02/24/20252002 Stabilization Measures: airway opened Taken 02/22/2025 2234 Infection Management: aseptic technique maintained Infection Prevention: [...] Ongoing, Progressing Intervention: Promote Activity and Functional [place] Flowsheets (Taken 02/26/2025 1750 by Bassem Jay RN) Activity Assistance Provided: assistance refused education provided Self-Care Promotion: independence encouraged * Care Plan - Bassem Jay RN - 02/26/2025 5:52 PM EDT Problem: Infection Goal: Absence of Infection Signs and Symptoms Outcome: Ongoing, Progressing Intervention: Prevent or Manage Infection Flowsheets Taken 02/25/2025 192 by Daniela Mcbride RN Isolation Precautions: precautions maintained Taken 02/23/2025 1254 by Temi Mao RN Fever Reduction/Comfort Measures: lightweight bedding Taken 02/22/2025 2234 by Daniela Mcbride RN Infection Management: aseptic technique maintained Problem: Adult Inpatient Plan of Care Goal: Plan of Care Review Outcome: Ongoing, Progressing Flowsheets Taken 02/24/20252002 by Daniela Mcbride RN Progress: improving Taken 02/22/2025 2234 by Daniela Mcbride RN [...] Ongoing, Progressing Intervention: Promote Activity and Functional [place] Flowsheets (Taken 02/26/2025 1750) Activity Assistance Provided: assistance refused education provided Self-Care Promotion: independence encouraged * Progress Notes - Eileen Ortega - 02/26/2025 11:16 AM EDT Physical Therapy Evaluation Patient Name: Eileen May Today's Date: 02/26/2025 PT Discharge Recommendations: Subacute rehab Equipment Recommended: Defer to facility History Eileen May is 64 y.o. female admitted 02/22/2025 for work-up of Sepsis ([facility]). Problem List Active Hospital Problems Diagnosis Date Noted Sepsis (CMS/HCC) 02/22/2025 Procedures Past 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 Patient has a past medical history of Anxiety, Breast cancer, Cerebral infarction, unspecified (CMS/HCC), COPD (chronic obstructive pulmonary disease) ([facility]), Depression, Fibromyalgia, History of falling, Hypertension, Personal [...] relaxing. Participants in Care Family/Caregiver Present: No Supervisor Bridges And Buildings: Not Applicable Presentation Oxygen Therapy: None (Room [...] session; RN aware Home Living/Set-up Home Type: [facility] facility Home Adaptive Equipment: Wheelchair-manual, Hospital bed [...] From: Caregiver Level of Mobility: Wheelchair/Scooter Mobility [place]: Independent wheelchair propulsion History of Falls: No ADL Performance: Needs assistance Bathing: Needs assist Upper Body Dressing: Independent Lower Body Dressing: Needs assist Grooming: Independent Toileting: Needs assist Eating: Independent Home Management Skills: Unable to perform Patient/Family Goals Return home at [facility]. Objective Pain Pt reports having some [...] change. Bed Mobility Exam: Rolling/Turning Level of [place]: Moderate assist (50% patient effort) (bilaterally) Physical/Nonphysical Assist: Verbal Cues, Minimal cues, 1 person + 1 person to manage equipment Assistive Device: Other (drawsheet) Bed Mobility Exam: Scooting/Bridging Level of [place]: Maximum assist (25% patient's effort) (to head [...] space Standardized Assessments Standardized Assessments Standardized Assessments: [facility] 6-Clicks Mobility Assessment [facility] 6-Clicks Mobility Assessment Difficulty patient has [...] female admitted 02/22/2025 for work-up of Sepsis ([facility]). Hospital Course 1. [place] coma scale total score 9-12, at arrival to emergency department 2. Acute cystitis without hematuria 3. Acute respiratory failure with hypercapnia 4. COPD exacerbation ([facility]) Procedures Past 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 Patient has a past medical history of Anxiety, Breast cancer, Cerebral infarction, unspecified ([facility]), COPD (chronic obstructive pulmonary disease) ([facility]), Depression, Fibromyalgia, History of falling, Hypertension, Personal [...] date Participants in Care Family/Caregiver Present: No Supervisor Bridges And Buildings: Not Applicable Presentation Oxygen Therapy: None (Room [...] treatment as tolerated Home Living/Set-Up Home Type: [facility] facility Home Adaptive Equipment: Wheelchair-manual, Hospital bed [...] From: Caregiver Level of Mobility: Wheelchair/Scooter Mobility [place]: Independent wheelchair propulsion History of Falls: No [...] of treatment space BED MOBILITY Level of [place] Physical/Non- physical Assist Adaptive Equipment Utilized Rolling/ [...] to rot this date. TRANSFERS Level of [place] Physical/Non- physical Assist Adaptive Equipment Utilized Sit to Stand Stand to sit Bed to Chair Toilet Transfer Shower Transfer Interventions Patient politely deferring transfer tasks this date; educated on use of amputee slingfor increased safety as patient expresses nervousness with transfer tasks. FUNCTIONAL MOBILITY Level of [place] Distance Adaptive Equipment Utilized Ambulation Comments Patient does not ambulate at baseline* ADL / Self-Care Tasks Level of [place] Adaptive Equipment Utilized Interventions Feeding Setup, Standby [...] increased patient rest/education throughout session. Standardized Assessments [facility] 6-Click Daily Activities Help from Other: Don/Doff Regular Lower Body Clothings: Total Help From Other: Bathing: A lot Help From Other: Toileting: Total Help From Other: Don/Doff Upper Body Clothings: Little Help From Other: Grooming: Little Help From Other: Eating Meals: None [facility] 6 Click - Daily Activities Score: [...] AM. * Progress Notes - Chuy Graham, - 02/26/2025 8:04 AM EDT Images from [...] negative infectious workup. She was extubated to SD w/o complications on 02/24/25. Events of past [...] negative infectious workup. She was extubated to SD w/o complications on 02/24/25. #Acute hypoxic respiratory [...] MURF, Bcx NGTD - S/p extubation 02/24, SD for SPO2 92%+ PLAN: - Supportive care [...] meds - continue Mirabegron #HFrEF 2/2 [facility] - 11/2024 LVEF 35-40% - Current [...] meds today F: soft and bite sized, PICKING BELT OPERATOR eval A: oxy, acetaminophen, fentanyl patch (home [...] Chuy Graham, DO Internal Medicine PGY-2 Pager [phone]; Epic Chat preferred Procedures [1] [2] PRN [...] Progressing Intervention: Optimize Glycemic Control Flowsheets (Taken 02/22/20254) Hyperglycemia Management: blood glucose monitored Hypoglycemia Management: [...] and Optimize Oral Intake Flowsheets (Taken 02/25/2025 191) Oral Nutrition Promotion: physical activity promoted Nutrition [...] patient [facility] extraction of #15 underlocal anesthesia. -we will arrange transport to clinic from hospital bed. - Diet: Regular; NPO at midnight prior to surgery -For extraction of one tooth it is not warranted to stop current anticoagulation therapy. -Follow current recommendations of Primary team. [facility] Department of Oral & Maxillofacial Surgery [address] [place] [address] Fifth Floor, Room [address] [place] [phone] Dispo: Continue Current Level of Care Bert [...] BREAST SURGERY N/A Breast Surgery Reconstruction from [facility] BREAST SURGERY N/A Breast Surgery from [facility] CHOLECYSTECTOMY N/A Cholecystotomy from [facility] KIDNEY SURGERY N/A Kidney Surgery from [facility] KNEE SURGERY N/A Knee Surgery from [facility] MASTECTOMY N/A Breast Surgery Mastectomy from [facility] SHOULDER SURGERY Right Shoulder Surgery Right from [facility] [3] No current facility-administered medications on file [...] is unaware of what reaction. Pedi-Pre Tape [place] [Wound Dressing Adhesive] Rash Wellbutrin [Bupropion] Rash Cosigned by Jin Rodriguez DDS at 02/26/2025 10:04 AM EDT Associated attestation - Jin Rodriguez DDS - 02/26/2025 10:04 AM EDT I reviewed with Dr. Bowling and agree with the plan * Progress Notes - Sarah Rand - 02/25/2025 3:11 PM EDT Case Management Adult Initial Progress Note Eileen May 64 y.o. female CSN: [id number] Admission: 02/22/2025 6:13 PM Primary Problem: Sepsis (CMS/[facility]) Retail Project Merchandiser reviewed chart and spoke with patient to complete this Initial Case Management Assessment. PCP: Vignesh Pickens MD Emergency Contact: Extended Emergency Contact Information Primary Emergency Contact: Dante,Turrell Mobile Relation: Sister Supervisor Bridges [employer] Buildings needed? No Insurance: Primary Visit Coverage Payer Plan Sponsor Code Group Number Group Name MEDICARE MEDICARE A & B Primary Visit Coverage Subscriber Subscriber ID Subscriber Name Subscriber SSN Subscriber Address [id number] EILEEN MAY [id number] [place] [id number] Secondary Visit Coverage Payer Plan Sponsor Code Group Number Group Name MEDICAID-[place] MEDICAID TRADITIONAL Secondary Visit Coverage Subscriber Subscriber ID Subscriber Name Subscriber [facility] Subscriber Address [id number] EILEEN MAY [id number] [place] [address] Patient information: Primary Caregiver: Private caregiver Support System: Immediate family Daily Living Activities: Functional Status: Moderate assistance Living Arrangements: [facility] Type of Residence: [facility] facility [place] [address] Current DME: Equipment Currently Used at Home: [...] living facility Discharge Transport: Follow Up Transport: [facility] provides follow up transportation. Patient will need assistance with transportation when medically stable. Home Health / Home Infusion / Outpatient Dialysis Services: None reported. Living Will/Advance Directive/Power of Manager Custom /Guardian: None reported. Sister/Turrell is NOK. Additional Comments: Case Management will continue to follow. Sarah Rand * Progress Notes - Daily Villasenor, RN - 02/25/2025 2:13 PM EDT Images [...] Note Eileen May 64 y.o. female CSN: [id number] Room/Bed 121/121A Nutrition evaluation type: follow-up Reason [...] Supplemental oxygen O2 Delivery Method: Nasal cannula [place] Coma Scale Score: 15 Ray Scale Score: [...] 36.76 Weight Evaluation: Obese-Class 2 (BMI 35-39.9) [place] Body Weight (kg): 48.55 (adjusted for left AKA) Percent [place] Body Weight: 198 Adjusted Body Weight (kg): [...] oz) Estimated Needs: Kcal/ K-30 Kcal Provided: 1591-7743 Kcal Needs Based On: Adjusted weight (60.5 kg) Gm Protein/ Kg : 1.2-1.5 Protein Provided: 73-91 Protein Needs Based On: Adjusted weight (60.5 kg) Fluid Provided: 1 ml/kcal or per MD team Metabolic Cart Study Results: Current Nutrition Intake: Diet Supplements: None Diet Order: Adult Diet Diet Texture: Full Liquid Adult Carbohydrate Restriction: Consistent CHO 2 (1621-8513 [place]twon, 80 g/meal) Percent Meals Eaten (%): 50% x 1 meal Diet Experience and Nutrition History: Diet Education Provided: Will monitor Pertinent home medications: ascorbic acid, calcitriol, cholecalciferol, cyanocobalamin, ferrous sulfate, insulin, loperamide, magnesium oxide, MVI, ondansetron, Percocet, pantoprazole Bahai needs: Nutrition Focused Physical Exam: Unable to Complete Exam: Patient unable to participate Physical exam performed on (date): Assessment of Malnutrition: Nutrition Problem: Inadequate oral intake related to current clinical condition as evidenced by full liquid diet. Status of Nutrition Diagnosis: Ongoing Nutrition Interventions and Recommendations: - Advance diet as appropriate per PICKING BELT OPERATOR - CHO 2 diet - Add Boost [...] BREAST SURGERY N/A Breast Surgery Reconstruction from [facility] BREAST SURGERY N/A Breast Surgery from [facility] CHOLECYSTECTOMY N/A Cholecystotomy from [facility] KIDNEY SURGERY N/A Kidney Surgery from [facility] KNEE SURGERY N/A Knee Surgery from [facility] MASTECTOMY N/A Breast Surgery Mastectomy from [facility] SHOULDER SURGERY Right Shoulder Surgery Right from [facility] [3] atorvastatin, 40 mg, Oral, Nightly baclofen, [...] negative infectious workup. She was extubated to SD w/o complications on 02/24/25. Events of past 24 hours: - no acute events overnight - was extubated 02/24/25 to SD, doing well, currently above goal on 2L [...] negative infectious workup. She was extubated to SD w/o complications on 02/24/25. #Acute hypoxic respiratory [...] today - on Mirabegron #HFrEF 2/2 [facility] - 11/2024 LVEF 35-40% - Current [...] meds today F: full liquid carb 2, PICKING BELT OPERATOR eval A: oxy, acetaminophen, prn dilaudid IV, [...] Chuy Graham, DO Internal Medicine PGY-2 Pager [phone]; Epic Chat preferred Procedures [1] [2] PRN [...] Manage VTE (Venous Thromboembolism) Risk Flowsheets (Taken 02/24/2025 1935) VTE Prevention/Management: bilateral SCDs (sequential compression devices) [...] Note Eileen May 64 y.o. female CSN: [id number] Room/Bed 121/121A Nutrition evaluation type: assessment Reason [...] 36.39 Weight Evaluation: Obese-Class 2 (BMI 35-39.9) [place] Body Weight (kg): 48.55 (adjusted for left AKA) Percent [place] Body Weight: 198 Adjusted Body Weight (kg): [...] oz) Estimated Needs: Kcal/ K-30 Kcal Provided: 5382-6453 Kcal Needs Based On: Adjusted weight (60.5 [...] loperamide, magnesium oxide, MVI, ondansetron, Percocet, pantoprazole Bahai needs: Nutrition Focused Physical Exam: Unable to Complete Exam: Weekend coverage Physical exam performed on (date): pending Assessment of Malnutrition: Nutrition Problem: Inadequate oral intake related to current clinical condition as evidenced by GCS 11, NPO diet order. Status of Nutrition Diagnosis: New Nutrition Interventions and Recommendations: PO diet advancement per PICKING BELT OPERATOR/MD team. TF recs if warranted: Diabetisource AC [...] (cerebral infarction) COPD (chronic obstructive pulmonary disease) ([facility]) Depression Fibromyalgia History of falling History of [...] BREAST SURGERY N/A Breast Surgery Reconstruction from [facility] BREAST SURGERY N/A Breast Surgery from [facility] CHOLECYSTECTOMY N/A Cholecystotomy from [facility] KIDNEY SURGERY N/A Kidney Surgery from [facility] KNEE SURGERY N/A Knee Surgery from [facility] MASTECTOMY N/A Breast Surgery Mastectomy from [facility] SHOULDER SURGERY Right Shoulder Surgery Right from [facility] [3] atorvastatin, 40 mg, Nasogastric, Nightly clopidogrel, [...] of Ventilator-Induced Lung Injury Outcome: Met * Marsha Owens - Delroy Bernal RN - 02/24/2025 9:16 [...] Liberation Flowsheets (Taken 02/23/2025 1254 by Temi Mao RN) Environmental Support: calm environment promoted caregiver [...] limited positioning supports utilized pressure points protected yfri-ne-sdulas areas padded tubing/devices free from skin contact [...] continued concern or difficult irrigating, contact Urology donor services manager. #hypovolemic Hyponatremia, resolved - baseline Na 130-135 [...] to continue to assess mentation #HFrEF 2/2 [facility] - 11/2024 LVEF 35-40% - Current [...] Boyd Landeros MD Internal Medicine PGY-2 Pager [phone] Critical Care Performed by: Luda Ralph MD [...] dexmedetomidine, 0.4-1.4 mcg/kg/hr, Last Rate: 1.4 mcg/kg/hr (02/24/25421) [2] PRN medications: acetaminophen, glucose OR dextrose [...] MD Consult ordered by: Luda Ralph MD [facility] U[facility] Consult Note 02/23/25 Service Requesting Consultation: MICU CC: Hematuria HPI: Eileen May is a 64 y.o. 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 [...] personally reviewed the imaging below: CT A/P 7/4/25: Moderate to severe bilateral hydroureteronephrosis down to the level of the urinary bladder. There are bilateral punctate renal stones that are nonobstructing. The patient has a thickened contractile bladder consistent with prior URS findings. Hospital Problem List: Principal Problem: Sepsis ([facility]) Assessment: Eileen May is a 64 y.o. [...] need to be upsized to a 20 Indonesian catheter to allow for easier drainage. We [...] continued concern or difficult irrigating, contact Urology donor services manager. Jake Sheets MD Urology PGY-2 [1] Past [...] continued concern or difficult irrigating, contact Urology donor services manager. #Hyponatremia - baseline Na 130-135 - Na [...] - Chuy Graham, Internal Medicine PGY-2 Pager [phone]; [facility] preferred Critical Care Performed by: Luda Ralph [...] dexmedetomidine, 0.4-1.4 mcg/kg/hr, Last Rate: 0.8 mcg/kg/hr (02/23/25 0805) [3] PRN medications: acetaminophen, glucose OR dextrose [...] Outcome: Ongoing, Progressing Goal: Optimal Nutrition Delivery 02/22/2025 223 by Daniela Mcbride RN Outcome: [...] Intervention: Optimize Glycemic Control Flowsheets (Taken 02/22/2025 223) Hyperglycemia Management: blood glucose monitored Hypoglycemia Management: blood glucose monitored Goal: Absence of Infection Signs and Symptoms 02/22/20252235 by Daniela Mcbride RN Outcome: Ongoing, Progressing 02/22/20252233 by Daniela Mcbride RN Outcome: Ongoing, Progressing Problem: Restraint, Nonviolent Goal: Absence of Harm or Injury Outcome: Ongoing, Progressing Intervention: Implement Least Restrictive Safety Strategies Flowsheets (Taken 02/22/20252235) Neurobiologist Protection: torso covered tubing secured Diversional Activities: other (see comments) Intervention: Protect Dignity, Rights and Personal Wellbeing Flowsheets (Taken 02/22/2025 223) Trust Relationship/Rapport: care explained choices provided Intervention: [...] and AMS. Patient presented to OSH from [facility] due to concern for hyponatremia, encephalopathy and [...] times a day. @ 0630 and 1999 Kati Womack MD ipratropium-albuterol (Duo-Neb) 0.5-2.5 mg/3 [...] taking: Reported on 01/31/2025 12/20/24 12/20/25 Cayla Erazo, LIZANDRO, FREDERICK INPATIENT MEDICATIONS: Current Medications[2] VITALS: Blood pressure [...] Results from last 7 days Lab Units 07/04/25 2105 PH ART 7.45* PCO2 ART mm [...] Rachel Shipman MD PGY-3, Internal Medicine Pager: [phone] Procedures [1] Family History Problem Relation Name [...] bag 0.25 mg Intravenous q10 min PRN [employer] Leon B, DO 0.25 mg at 02/22/251953 Or HYDROmorphone (Dilaudid) bolus from bag 0.5 mg Intravenous q10 min PRN [employer], Leon B, DO 0.5 mg at 02/22/251926 hydromorphone 20 mg in NS 100 mL infusion (200 mcg/mL) 0.25-2 mg/hr Intravenous Titrated [employer], DO 1.25 mL/hr at 02/22/251926 0.25 mg/hr at 02/22/251926 ipratropium-albuterol (Duo-Neb) 0.5-2.5 mg/3 mL nebulizer solution 3 mL 3 mL Nebulization Once [employer] Leon B, DO mupirocin (Bactroban) 2 % [...] evaluated the patient with the resident/fellow via [facility] ICU audio- visual support as available. I [...] CTHAP: no acute findings Steroids in ED [facility] ED -> transferred here. VBG completed [...] Rate Resp BP 02/22/25 1821 02/22/25 1821 02/22/25 1821 02/22/25 182 36.9 ??C (98.4 ??F) 78 11 120/74 SpO2 Temp Source Heart Rate Source Patient Position 02/22/25 1821 02/22/25 1821 -- -- 93 % Oral BP Location [...] Status: She is disoriented. Comments: GCS 9 [place] Coma Scale Score: 11 ED Course & [...] Start Status Ordering Provider 02/25/25 0600 Scheduled MORTONLUDA 02/28/25 0600 Scheduled MORTON, LUDA Cisneros 03/04/25 [...] Daily Order ID Start Status Ordering Provider [id number] 02/23/25 0800 Ordered MORTONLUDA 02/24/25 0600 Scheduled MORTON, LUDA Cisneros 02/25/25 0600 Scheduled MORTON, LUDA Cisneros 02/26/25 0600 Scheduled MORTON, LUDA Cisneros 02/27/25 0600 Scheduled MORTON, LUDA Cisneros Ordered MORTON, LUDA Cisneros 02/22/25 1858 Suction secretions Every 8 hours Ordered LUDA [...] Continuous Order ID Start Status Ordering Provider [id number] 02/22/251858 Ordered LUDA MORTON [id number] 02/22/251999 Completed LUDA MORTON [id number] 02/23/25 08 Ordered LUDA MORTON 02/23/251999 Scheduled LUDA MORTON 02/24/25 08 Scheduled MORTONLUDA Stevens 02/24/251999 Scheduled LUDA MORTON 02/25/25 08 Scheduled LUDA MORTON 02/25/251999 Scheduled LUDA MORTON 02/26/25 08 Scheduled LUDA MORTON 02/26/251999 Scheduled LUDA MORTON Ordered LUDA MORTON 02/22/251857 End Tidal co2 Monitoring Continuous Order ID Start Status Ordering Provider [id number] 02/22/251858 Ordered LUDA MORTON [id number] 02/22/251999 Completed LUDA MORTON [id number] 02/23/25 0800 Ordered LUDA MORTON 02/23/251999 Scheduled LUDA MORTON 02/24/25 08 Scheduled LDUA MORTON 02/24/251999 Scheduled LUDA MORTON 02/25/25 08 Scheduled MORTONLUDA Stevens 02/25/251999 Scheduled LUDA MORTON 02/26/25 08 Scheduled LUDA MORTON 02/26/251999 Scheduled LUDA MORTON Ordered LUDA MORTON 02/22/251857 SAT-Spontaneous Awakening Trial Sedation vacations and assess readiness to extubatedaily and prn Until discontinued Ordered LUDA MORTON 02/22/251857 Adjust HOB (specify) 30 degrees (30-45 degrees) Once Ordered LUDA MORTON 02/22/251857 Swab oral cavity every 2 hours and PRN to cleanse and maintain oral mucosal integrityUntil discontinued Ordered LUDA MORTON 02/22/251857 [place] teeth every 12 hours Until discontinued Ordered LUDA MORTON 07/04/25 1858 Continuous Pulse Oximetry Until discontinued Ordered MORTONLUDA CUMMINGS 02/22/25 1858 PT eval and treat Until therapy completed Ordered LUDA MORTON 02/22/25 1858 OT eval and treat Until therapy completed Ordered LUDA MORTON 02/22/25 1853 ICU Target Pain Score Until discontinued Comments: Initiate and titrate analgesia to attain goal CPOT first prior to initiating sedation unless otherwise ordered. Goal is to provide adequate pain management prior to initiating sedative agents. Target consistent patient goal CPOT as ordered. Document CPOT per nursing policy prior to and following PRN dosing and with any changes in infusionrate. Ordered MORTONLUDA Blayne 02/22/25 185 Target arousal level: Until discontinued Comments: Target [...] ONCE Final result POCT, GENERIC PROVIDER 02/22/25 1835 POCT Venous Blood Gas Docked Once Acknowledged LUDA MORTON 02/22/25 1831 CMP STAT In process LUDA MORTON 02/22/25 1831 CBC w/diff STAT Final result LUDA MORTON 02/22/25 1831 Blood gas panel, venous STAT Collected LUDA MORTON 02/22/25 1831 Ethyl Alcohol Plasma STAT Collected LUDA MORTON 02/22/25 1831 Thyroid Stimulating Hormone, Plasma STAT In process LUDA MORTON 02/22/25 1831 Free T4, Plasma STAT In process LUDA MORTON 02/22/25 183 Drug abuse screen STAT Acknowledged LUDA MORTON 02/22/25 1817 POCT glucose meter PROCEDURE ONCE Final result POCT, GENERIC PROVIDER ED Course as of 02/22/25 2200 TueFeb 22, 20251955 CT head from outside hospital shows no acute intracranial process but multiple chronic infarcts and qnau-tb-yzgbipaw small-vessel disease. Additionally CT angio of the [...] responsive primarily to pain. Incomprehensible sounds [MJ] 195 to no response. [MJ] ED Course User [...] BREAST SURGERY N/A Breast Surgery Reconstruction from [facility] BREAST SURGERY N/A Breast Surgery from [facility] CHOLECYSTECTOMY N/A Cholecystotomy from [facility] KIDNEY SURGERY N/A Kidney Surgery from [facility] KNEE SURGERY N/A Knee Surgery from [facility] MASTECTOMY N/A Breast Surgery Mastectomy from [facility] SHOULDER SURGERY Right Shoulder Surgery Right from [facility] [3] Family History Problem Relation Name Age [...] is unaware of what reaction. Pedi-Pre Tape [place] [Wound Dressing Adhesive] Rash Wellbutrin [Bupropion] Rash Leon Wallace DO Resident 02/22/25 2221 Cosigned by Luda Morton MD at 02/28/2025 [...] Description 03/07/2025 10:00 AM EDT Office Visit [facility] Urology [address] [place] [address] Doug Chapman MD [address] [place] [address] 03/27/2025 10:30 AM EDT Appointment [facility] [address] [place] [phone] 03/27/2025 11:50 AM EDT Clinical Support [facility] Lab [address] [place] [phone] 03/27/2025 1:00 PM EDT Office Visit Medical [facility] Building Urology [address] [facility], [address] [place] [phone] Cayla Erazo, SOUND CUTTER, DNP [address] [place] [address] 05/16/2025 8:00 AM EDT Office Visit [facility] [address], [address] [place] [address] Karly Gracia MD [address] [place] [address] 06/07/2025 1:00 PM EDT Office Visit [facility] [address] [place] [address] Tom Iraheta MD [address] [place] [address] Pending Results Name Type Priority Associated Diagnoses Date /Time Urine Culture Microbiology Routine 4:15 PM EDT documented as of this encounter Procedures Procedure [...] EDT EXTUBATION Routine 02/24/2025 9:49 AM EDT [facility], E/M 30-74 MINUTES Routine 02/24/2025 7:08 AM EDT Acute respiratory failure with hypoxia and hypercapnia Acute kidney injury superimposed on CKD (CMS/HCC) Chronic kidney disease, stage 3a (CMS/HCC) Hyponatremia Acute encephalopathy Sepsis with encephalopathy without septic shock, due to unspecified organism (CMS/HCC) Chronic diastolic (congestive) heart failure (CMS/HCC) POCT GLUCOSE METER UNSOLICITED RESULTS Routine 02/24/2025 [...] AND TREAT Routine 02/23/2025 10:25 AM EDT [place] [facility], E/M 30-74 MINUTES Routine 02/23/2025 9:10 AM EDT Acute respiratory failure with hypoxia and hypercapnia Acute kidney injury superimposed on CKD ([facility]) Chronic kidney disease, stage 3a ([facility]) Hyponatremia Acute encephalopathy Sepsis with encephalopathy without septic shock, due to unspecified organism ([facility]) SODIUM, PLASMA Timed 02/23/2025 8:34 AM EDT [...] - 99 mg/dL 03/02/2025 8:14 AM EDT [facility] Comment:Accuracy of a glucos e result [...] for testing. Comment 03/02/2025 8:14 AM EDT [facility] Readers' Advisory Service Librarian ID Stefanie Frances 025 8:14 AM EDT [facility] Device ID [id number] 03/02/2025 8:14 AM EDT [facility] Specimen Type POC Capillary 03/02/2025 8:14 AM EDT [facility]ARE [facility] Blood Capillary blood specimen / Unknown 03/02/2025 8:13 AM EDT 03/02/2025 8:14 AM EDT us Madonna Singleton MD LAB POINT OF CARE TE ST DOCKED DEVICE UNSOLICITED RESULTS Final Result Performing Organization Address City/[facility] Co de Phone Number [facility]ALTHCARE [facility] [address] [place] [address] * (ABNORMAL) POCT glucose meter (03/01/2025 7:46 [...] for testing. Comment 03/01/2025 7:47 PM EDT [facility]ARE [facility] Readers' Advisory Service Librarian ID Kamron Freire 03/01/2025 7:47 PM EDT [facility] Device ID [id number] 03/01/2025 7:47 PM EDT HEALTHCARE LAB Specimen Type POC Capillary 03/01/2025 7:47 PM EDT [facility]ALTH[facility]ARE [facility] Blood Capillary blood specimen / Unknown 03/01/2025 7:46 PM EDT 03/01/2025 7:47 PM EDT us Madonna Singleton MD LAB POINT OF CARE TE ST DOCKED DEVICE UNSOLICITED RESULTS Final Result Performing Organization Address City/[facility] Co de Phone Number [facility]CARE [facility] [address] [place] [address] * (ABNORMAL) POCT glucose meter (03/01/2025 5:42 [...] 03/01/2025 5:45 PM EDT [facility] Readers' Advisory Service Librarian ID Norberto Smyth 03/01/20 5:45 PM EDT [facility] Device ID [id number] 03/01/2025 5:45 PM EDT [facility] Specimen Type POC Capillary 03/01/2025 5:45 PM EDT [facility]ARE [facility] Blood Capillary blood specimen / Unknown 03/01/2025 5:42 PM EDT 03/01/2025 5:45 PM EDT us Madonna Singleton MD LAB POINT OF CARE TE ST DOCKED DEVICE UNSOLICITED RESULTS Final Result Performing Organization Address [facility] de Phone Number [facility] [address] [place] [address] * SEND HECTOR MESSAGE (03/01/2025 4:15 PM EDT) Urine Urine specimen obtained by clean catch procedure / Unknown Non-blood Collection / Unknown 03/01/2025 4:15 PM EDT 03/01/2025 4:26 PM EDT us Madonna Singleton MD LAB URINE ORDERABLES Final Resul t Performing Organization Address City/[facility] [place] [address] * Urinalysis Microscopic Examination (03/01/2025 4:15 PM EDT) Urine Urine specimen obtained by clean catch procedure / Unknown Non-blood Collection / Unknown 03/01/2025 4:15 PM EDT 03/01/2025 4:26 PM EDT us Madonna Singleton MD LAB URINE ORDERABLES Final Resul t Performing Organization Address [facility] de Phone Number [facility] [address] [place] [address] * Urine Salmon Panel (03/01/2025 4:15 PM EDT) Extra Sent for Culture 03/01/2025 6:01 PM EDT [facility] Urine Urine specimen obtained by clean catch procedure / Unknown Non-blood Collection / Unknown 03/01/2025 4:15 PM EDT 03/01/2025 4:26 PM EDT us Madonna Mani BENSON LAB URINE ORDERABLES Final Resul t [facility] [address] [place] [address] * (ABNORMAL) Urinalysis with reflex microscopic (Culture NOT Included) (03/01/2025 4:15 PM EDT) Color, Urine Yellow LAB URINALYSIS - AUTOMATED METHOD 03/01/2025 4:34 PM EDT [facility] Clarity, Urine Cloudy LAB URINALYSIS - AUTOMATED METHOD 03/01/2025 4:34 PM EDT [facility] Spec [place], Urine 1.008 1.005 - 1.030 LAB URINALYSIS - AUTOMATED METHOD 03/01/2025 4:34 PM EDT [facility] pH, Urine 6.5 5.0 - 8.0 LAB URINALYSIS - AUTOMATED METHOD 03/01/2025 4:34 PM EDT [facility] Protein, Urine 30(A) Negative mg/dL LAB URINALYSIS - AUTOMATED METHOD 03/01/2025 4:34 PM EDT [facility] Glucose, Urine Negative Negative mg/dL LAB URINALYSIS - AUTOMATED METHOD 03/01/2025 4:34 PM EDT [facility] Ketones, Urine Negative Negative mg/dL LAB URINALYSIS - AUTOMATED METHOD 03/01/2025 4:34 PM EDT [facility] Blood, Urine Large(A) Negative LAB URINALYSIS - AUTOMATED METHOD 03/01/2025 4:34 PM EDT [facility] Bilirubin, Urine Negative Negative LAB URINALYSIS - AUTOMATED METHOD 03/01/2025 4:34 PM EDT [facility] Urobilinogen, Urine 0.2 0.2 to 1.0 mg/dL LAB URINALYSIS - AUTOMATED METHOD 03/01/2025 4:34 PM EDT [facility] Leukocytes, Urine Large(A) Negative LAB URINALYSIS - AUTOMATED METHOD 03/01/2025 4:34 PM EDT [facility] Nitrite, Urine Negative Negative LAB URINALYSIS - AUTOMATED METHOD 03/01/2025 4:34 PM EDT [facility] RBC, Urine >50(A) 0 to 3 /HPF LAB URINALYSIS - AUTOMATED METHOD 03/01/2025 4:34 PM EDT [facility] WBC, Urine >50(A) 0 to 5 /HPF LAB URINALYSIS - AUTOMATED METHOD 03/01/2025 4:34 PM EDT [facility] Squamous Epithelial Cells 3 - 5 0 to 5 /HPF LAB URINALYSIS - AUTOMATED METHOD 03/01/2025 4:34 PM EDT [facility] Hyaline Casts 0 - 2 0 to 5 /LPF LAB URINALYSIS - AUTOMATED METHOD 03/01/2025 4:34 PM EDT [facility] Bacteria, Urine Negative Negative LAB URINALYSIS - AUTOMATED METHOD 03/01/2025 4:34 PM EDT [facility] Urine Urine specimen obtained by clean catch procedure / Unknown Non-blood Collection / Unknown 03/01/2025 4:15 PM EDT 03/01/2025 4:26 PM EDT us Madonna Mani BENSON LAB URINE ORDERABLES Final Resul t Performing Organization Address City/State/[facility] Co de Phone Number [facility] [address] [place] [address] * (ABNORMAL) POCT glucose meter (03/01/2025 12:03 [...] Comment 03/01/2025 12:05 PM EDT [facility] Readers' Advisory Service Librarian ID Nancy Hidalgo 03/01/2025 12:05 PM EDT [facility] Device ID [id number] 03/01/2025 12:05 PM EDT [facility]ALTH[facility]ARE [facility] Specimen Type POC Capillary 03/01/2025 12:05 PM EDT [facility] Blood Capillary blood specimen / Unknown 03/01/2025 12:03 PM EDT 03/01/2025 12:05 PM EDT us Madonna Singleton MD LAB POINT OF CARE TE ST DOCKED DEVICE UNSOLICITED RESULTS Final Result Performing Organization Address City/[facility] Co de Phone Number [facility] [address] [place] [address] * (ABNORMAL) POCT glucose meter (03/01/2025 7:59 [...] 03/01/2025 8:01 AM EDT [facility] Readers' Advisory Service Librarian ID Nancy Hidalgo 03/01/2025 8:01 AM EDT [facility] LAB Device ID [id number] 03/01/2025 8:01 AM EDT [facility]ARE LAB Specimen Type POC Capillary 03/01/2025 8:01 AM EDT [facility] Blood Capillary blood specimen / Unknown 03/01/2025 7:59 AM EDT 03/01/2025 8:01 AM EDT us Madonna Singleton MD LAB POINT OF CARE TE ST DOCKED DEVICE UNSOLICITED RESULTS Final Result Performing Organization Address City/[facility]/ZIP Co de Phone Number [facility]ARE [facility] [address] [place] [address] * (ABNORMAL) CBC and Differential (03/01/2025 4:08 AM EDT) [facility] Signature WBC Count 6.83 3.70 - 10.30 10*3/uL LAB HEMATOLOGY METHOD 03/01/2025 4:54 AM EDT [facility] RBC Count 3.61(L) 3.90 - 5.20 10*6/uL LAB HEMATOLOGY METHOD 03/01/2025 4:54 AM EDT [facility] HGB 9.2(L) 11.2 - 15.7 g/dL LAB HEMATOLOGY METHOD 03/01/2025 4:54 AM EDT [facility] HCT 29.9(L) 34.0 - 45.0 % LAB HEMATOLOGY METHOD 03/01/2025 4:54 AM EDT [facility] Platelet Count 294 155 - 369 10*3/uL LAB HEMATOLOGY METHOD 03/01/2025 4:54 AM EDT [facility] MCV 83 79 - 98 fL LAB HEMATOLOGY METHOD 03/01/2025 4:54 AM EDT [facility] MCH 25.5(L) 26.0 - 32.0 pg LAB HEMATOLOGY METHOD 03/01/2025 4:54 AM EDT [facility] MCHC 30.8 30.7 - 35.5 g/dL LAB HEMATOLOGY METHOD 03/01/2025 4:54 AM EDT [facility] RDW 15.1(H) 11.5 - 14.5 % LAB HEMATOLOGY METHOD 03/01/2025 4:54 AM EDT [facility] MPV 9.2 8.8 - 12.5 fL LAB HEMATOLOGY METHOD 03/01/2025 4:54 AM EDT [facility] nRBC 0.0 <=0.0 per 100 WBCs LAB HEMATOLOGY METHOD 03/01/2025 4:54 AM EDT [facility] Differential Type Automated LAB HEMATOLOGY METHOD 03/01/2025 4:54 AM EDT [facility] Neutrophils % 56 % LAB HEMATOLOGY METHOD 03/01/2025 4:54 AM EDT [facility] Lymphocytes % 25 % LAB HEMATOLOGY METHOD 03/01/2025 4:54 AM EDT [facility] Monocytes % 11 % LAB HEMATOLOGY METHOD 03/01/2025 4:54 AM EDT [facility] Eosinophils % 6 % LAB HEMATOLOGY METHOD 03/01/2025 4:54 AM EDT [facility] Basophils % 1 % LAB HEMATOLOGY METHOD 03/01/2025 4:54 AM EDT [facility] Immature Granulocytes % 1 % LAB HEMATOLOGY METHOD 03/01/2025 4:54 AM EDT [facility] Neutrophils Absolute 3.86 1.60 - 6.10 10*3/uL LAB HEMATOLOGY METHOD 03/01/2025 4:54 AM EDT [facility] Lymphocytes Absolute 1.70 1.20 - 3.90 10*3/uL LAB HEMATOLOGY METHOD 03/01/2025 4:54 AM EDT [facility] Monocytes Absolute 0.74 0.30 - 0.90 10*3/uL LAB HEMATOLOGY METHOD 03/01/2025 4:54 AM EDT [facility] Eosinophils Absolute 0.44 0.00 - 0.50 10*3/uL LAB HEMATOLOGY METHOD 03/01/2025 4:54 AM EDT [facility] Basophils Absolute 0.05 0.00 - 0.10 10*3/uL LAB HEMATOLOGY METHOD 03/01/2025 4:54 AM EDT [facility] Immature Granulocytes Absolute 0.04 0.00 - 0.06 10*3/uL LAB HEMATOLOGY METHOD 03/01/2025 4:54 AM EDT [facility] Blood Venous blood specimen / Unknown Venipuncture / Unknown 03/01/2025 4:08 AM EDT 03/01/2025 4:42 AM EDT Narrative [facility] - 03/01/2025 4:54 AM EDT Therapeutic decision making should be based on absolute values, rather than percentages. us Madonna Singleton MD LAB BLOOD ORDERABLES Final Resul t [facility] [address] [place] [address] * Magnesium, Plasma (03/01/2025 4:08 AM EDT) Magnesium, Plasma 2.0 1.9 - 2.4 mg/dL 03/01/2025 5:14 AM EDT [facility] Blood Venous blood specimen / Unknown Venipuncture / Unknown 03/01/2025 4:08 AM EDT 03/01/2025 4:43 AM EDT us Madonna Mani BENSON LAB BLOOD ORDERABLES Final Resul t [facility] [address] [place] [address] * (ABNORMAL) Basic Metabolic Panel, Plasma (03/01/2025 4:08 AM EDT) Glucose, Plasma 205(H) 74 - 99 mg/dL 03/01/2025 5:14 AM EDT [facility] BUN, Plasma 40(H) 8 - 23 mg/dL 03/01/2025 5:14 AM EDT [facility] Creatinine, Plasma 1.84(H) 0.60 - 1.10 mg/dL 03/01/2025 5:14 AM EDT [facility] BUN/Creatinine Ratio 22 03/01/2025 5:14 AM EDT [facility] Sodium, Plasma 125(L) 136 - 145 mmol/L 03/01/2025 5:14 AM EDT [facility] Potassium, Plasma 4.5 3.6 - 4.9 mmol/L 03/01/2025 5:14 AM EDT [facility] Chloride, Plasma 91(L) 97 - 107 mmol/L 03/01/2025 5:14 AM EDT [facility] CO2, Plasma 23 22 - 29 mmol/L 03/01/2025 5:14 AM EDT [facility] Anion Gap 11 6 - 16 mmol/L 03/01/2025 5:14 AM EDT [facility] Total Calcium, Plasma 8.8(L) 8.9 - 10.2 mg/dL 03/01/2025 5:14 AM EDT [facility] eGFRcr 30.1 mL/min/1.7 3m*2 03/01/2025 5:14 AM EDT [facility] Comment:Reported eGFRcr in m L/min/1.73m2 is based the CKD-EPI 2020 equation that does not use a race coefficient. Blood Venous blood specimen / Unknown Venipuncture / Unknown 03/01/2025 4:08 AM EDT 03/01/2025 4:43 AM EDT us Madonna Singleton MD LAB BLOOD ORDERABLES Final Resul t Performing Organization Address City/[facility]/ZIP Co de Phone Number [facility] [address] [place] [address] * Phosphorus, Plasma (03/01/2025 4:08 AM EDT) Phosphorus, Plasma 4.4 2.5 - 4.5 mg/dL 03/01/2025 5:14 AM EDT [facility] Blood Venous blood specimen / Unknown Venipuncture / Unknown 03/01/2025 4:08 AM EDT 03/01/2025 4:43 AM EDT us Madonna Singleton MD LAB BLOOD ORDERABLES Final Resul t Performing Organization Address City/[facility] de Phone Number [facility] [address] [place] [address] * (ABNORMAL) POCT glucose meter (03/01/2025 3:09 AM EDT) Pathologist [facility] POCT Glucose 187(H) 74 - 99 [...] 03/01/2025 3:35 AM EDT [facility] Readers' Advisory Service Librarian ID Pat Young 03/01/2025 3:35 AM EDT [facility] Device ID [id number] 03/01/2025 3:35 AM EDT [facility] Specimen Type POC Capillary 03/01/2025 3:35 AM EDT [facility] Blood Capillary blood specimen / Unknown 03/01/2025 3:09 AM EDT 03/01/2025 3:35 AM EDT us Madonna Singleton MD LAB POINT OF CARE TE ST DOCKED DEVICE UNSOLICITED RESULTS Final Result Performing Organization Address City/[facility] de Phone Number [facility] [address] [place] [address] * (ABNORMAL) POCT glucose meter (02/28/2025 8:25 [...] Comment 02/28/2025 8:42 PM EDT [facility] Readers' Advisory Service Librarian ID PalapasPta 02/28/2025 8:42 PM EDT [facility] Device ID [id number] 02/28/2025 8:42 PM EDT [facility] Specimen Type POC Capillary 02/28/2025 8:42 PM EDT [facility] Blood Capillary blood specimen / Unknown 02/28/2025 8:25 PM EDT 02/28/2025 8:42 PM EDT us Madonna Singleton MD LAB POINT OF CARE TE ST DOCKED DEVICE UNSOLICITED RESULTS Final Result Performing Organization Address City/[facility] de Phone Number [facility] [address] [place] [address] * (ABNORMAL) POCT glucose meter (02/28/2025 4:59 [...] Comment 02/28/2025 5:00 PM EDT [facility] Readers' Advisory Service Librarian ID Nancy Hidalgo 02/28/2025 5:00 PM EDT [facility] Device ID [id number] 02/28/2025 5:00 PM EDT [facility] Specimen Type POC Capillary 02/28/2025 5:00 PM EDT [facility] Blood Capillary blood specimen / Unknown 02/28/2025 4:59 PM EDT 02/28/2025 5:00 PM EDT us Madonna Mani BENSON LAB POINT OF CARE TE ST DOCKED DEVICE UNSOLICITED RESULTS Final Result [facility] [address] [place] [id number] * (ABNORMAL) CBC and Differential (02/28/2025 1:04 PM EDT) WBC Count 7.39 3.70 - 10.30 10*3/uL LAB HEMATOLOGY METHOD 02/28/2025 1:37 PM EDT [facility] RBC Count 4.30 3.90 - 5.20 10*6/uL LAB HEMATOLOGY METHOD 02/28/2025 1:37 PM EDT [facility] HGB 11.0(L) 11.2 - 15.7 g/dL LAB HEMATOLOGY METHOD 02/28/2025 1:37 PM EDT [facility] HCT 35.0 34.0 - 45.0 % LAB HEMATOLOGY METHOD 02/28/2025 1:37 PM EDT [facility] Platelet Count 399(H) 155 - 369 10*3/uL LAB HEMATOLOGY METHOD 02/28/2025 1:37 PM EDT [facility] MCV 81 79 - 98 fL LAB HEMATOLOGY METHOD 02/28/2025 1:37 PM EDT [facility] MCH 25.6(L) 26.0 - 32.0 pg LAB HEMATOLOGY METHOD 02/28/2025 1:37 PM EDT [facility] MCHC 31.4 30.7 - 35.5 g/dL LAB HEMATOLOGY METHOD 02/28/2025 1:37 PM EDT [facility] RDW 15.5(H) 11.5 - 14.5 % LAB HEMATOLOGY METHOD 02/28/2025 1:37 PM EDT [facility] MPV 9.0 8.8 - 12.5 fL LAB HEMATOLOGY METHOD 02/28/2025 1:37 PM EDT [facility] nRBC 0.0 <=0.0 per 100 WBCs LAB HEMATOLOGY METHOD 02/28/2025 1:37 PM EDT [facility] Differential Type Automated LAB HEMATOLOGY METHOD 02/28/2025 1:37 PM EDT [facility] Neutrophils % 62 % LAB HEMATOLOGY METHOD 02/28/2025 1:37 PM EDT [facility] Lymphocytes % 21 % LAB HEMATOLOGY METHOD 02/28/2025 1:37 PM EDT [facility] Monocytes % 9 % LAB HEMATOLOGY METHOD 02/28/2025 1:37 PM EDT [facility] Eosinophils % 6 % LAB HEMATOLOGY METHOD 02/28/2025 1:37 PM EDT [facility] Basophils % 1 % LAB HEMATOLOGY METHOD 02/28/2025 1:37 PM EDT [facility] Immature Granulocytes % 1 % LAB HEMATOLOGY METHOD 02/28/2025 1:37 PM EDT [facility] Neutrophils Absolute 4.64 1.60 - 6.10 10*3/uL LAB HEMATOLOGY METHOD 02/28/2025 1:37 PM EDT [facility] Lymphocytes Absolute 1.54 1.20 - 3.90 10*3/uL LAB HEMATOLOGY METHOD 02/28/2025 1:37 PM EDT [facility] Monocytes Absolute 0.69 0.30 - 0.90 10*3/uL LAB HEMATOLOGY METHOD 02/28/2025 1:37 PM EDT [facility] Eosinophils Absolute 0.41 0.00 - 0.50 10*3/uL LAB HEMATOLOGY METHOD 02/28/2025 1:37 PM EDT [facility] Basophils Absolute 0.05 0.00 - 0.10 10*3/uL LAB HEMATOLOGY METHOD 02/28/2025 1:37 PM EDT [facility] Immature Granulocytes Absolute 0.06 0.00 - 0.06 10*3/uL LAB HEMATOLOGY METHOD 02/28/2025 1:37 PM EDT [facility] Blood Venous blood specimen / Unknown Venipuncture / Unknown 02/28/2025 1:04 PM EDT 02/28/2025 1:28 PM EDT Narrative [facility] - 02/28/2025 1:37 PM EDT Therapeutic decision making should be based on absolute values, rather than percentages. us Madonna Singleton MD LAB BLOOD ORDERABLES Final Resul t Performing Organization Address [facility]/ZIP Co de Phone Number [facility] [address] [place] [address] * (ABNORMAL) Magnesium, Plasma (02/28/2025 1:04 PM EDT) Magnesium, Plasma 1.7(L) 1.9 - 2.4 mg/dL 02/28/2025 1:45 PM EDT [facility] Blood Venous blood specimen / Unknown Venipuncture / Unknown 02/28/2025 1:04 PM EDT 02/28/2025 1:14 PM EDT us Madonna Singleton MD LAB BLOOD ORDERABLES Final Resul t Performing Organization Address [facility] Co de Phone Number [facility] [address] [place] [address] * (ABNORMAL) Basic Metabolic Panel, Plasma (02/28/2025 1:04 PM EDT) Glucose, Plasma 166(H) 74 - 99 mg/dL 02/28/2025 1:45 PM EDT [facility] BUN, Plasma 40(H) 8 - 23 mg/dL 02/28/2025 1:45 PM EDT [facility] Creatinine, Plasma 1.99(H) 0.60 - 1.10 mg/dL 02/28/2025 1:45 PM EDT [facility] BUN/Creatinine Ratio 20 02/28/2025 1:45 PM EDT [facility] Sodium, Plasma 130(L) 136 - 145 mmol/L 02/28/2025 1:45 PM EDT [facility] Potassium, Plasma 4.6 3.6 - 4.9 mmol/L 02/28/2025 1:45 PM EDT [facility] Chloride, Plasma 93(L) 97 - 107 mmol/L 02/28/2025 1:45 PM EDT [facility] CO2, Plasma 24 22 - 29 mmol/L 02/28/2025 1:45 PM EDT [facility] Anion Gap 13 6 - 16 mmol/L 02/28/2025 1:45 PM EDT [facility] Total Calcium, Plasma 9.3 8.9 - 10.2 mg/dL 02/28/2025 1:45 PM EDT [facility] eGFRcr 27.4 mL/min/1.7 3m*2 02/28/2025 1:45 PM EDT [facility] Comment:Reported eGFRcr in m L/min/1.73m2 is based the CKD-EPI 2020 equation that does not use a race coefficient. Blood Venous blood specimen / Unknown Venipuncture / Unknown 02/28/2025 1:04 PM EDT 02/28/2025 1:14 PM EDT us Madonna Singleton MD LAB BLOOD ORDERABLES Final Resul t Performing Organization Address City/[facility]/ZIP Co de Phone Number [facility] [address] [place] [address] * Phosphorus, Plasma (02/28/2025 1:04 PM EDT) Pathologist [facility] Phosphorus, Plasma 4.1 2.5 - 4.5 mg/dL 02/28/2025 1:45 PM EDT [facility] Blood Venous blood specimen / Unknown Venipuncture / Unknown 02/28/2025 1:04 PM EDT 02/28/2025 1:14 PM EDT us Madonna Singleton MD LAB BLOOD ORDERABLES Final Resul t [facility] [address] [place] [address] * (ABNORMAL) POCT glucose meter (02/28/2025 12:17 [...] Comment 02/28/2025 12:19 PM EDT [facility] Readers' Advisory Service Librarian ID Nancy Hidalgo 02/28/2025 12:19 PM EDT [facility] Device ID [id number] 02/28/2025 12:19 PM EDT [facility] Specimen Type POC Capillary 02/28/2025 12:19 PM EDT [facility] Blood Capillary blood specimen / Unknown 02/28/2025 12:17 PM EDT 02/28/2025 12:19 PM EDT us Madonna Mani BENSON LAB POINT OF CARE TE ST DOCKED DEVICE UNSOLICITED RESULTS Final Result Performing Organization Address City/State/[facility] Co de Phone Number [facility] [address] [place] [address] * (ABNORMAL) POCT glucose meter (02/27/2025 8:12 PM EDT) [facility] POCT Glucose 211(H) 74 - 99 mg/dL 02/27/2025 8:14 PM EDT [facility] Comment:Accuracy of a [...] Comment 02/27/2025 8:14 PM EDT [facility] Readers' Advisory Service Librarian ID Pat Young 02/27/2025 8:14 PM EDT [facility] Device ID [id number] 02/27/2025 8:14 PM EDT [facility] Specimen Type POC Capillary 02/27/2025 8:14 PM EDT [facility] Blood Capillary blood specimen / Unknown 02/27/2025 8:12 PM EDT 02/27/2025 8:14 PM EDT us Madonna Singleton MD LAB POINT OF CARE TE ST DOCKED DEVICE UNSOLICITED RESULTS Final Result Performing Organization Address City/[facility]/ZIP Co de Phone Number [facility] [address] [place] [address] * (ABNORMAL) POCT glucose meter (02/27/2025 5:20 [...] for testing. Comment 02/27/2025 5:21 PM EDT [facility] Readers' Advisory Service Librarian ID Nancy Hidalgo 02/27/2025 5:21 PM EDT [facility] LAB Device ID [id number] 02/27/2025 5:21 PM EDT [facility] Specimen Type POC Capillary 02/27/2025 5:21 PM EDT [facility] Blood Capillary blood specimen / Unknown 02/27/2025 5:20 PM EDT 02/27/2025 5:21 PM EDT us Madonna Singleton MD LAB POINT OF CARE TE ST DOCKED DEVICE UNSOLICITED RESULTS Final Result Performing Organization Address City/[facility]/ZIP Co de Phone Number [facility] [address] [place] [address] * (ABNORMAL) POCT glucose meter (02/27/2025 12:29 PM EDT) Pathologist [facility] POCT Glucose 247(H) 74 - 99 mg/dL [...] Comment 02/27/2025 12:30 PM EDT [facility] Readers' Advisory Service Librarian ID Daniela Carroll 025 12:30 PM EDT [facility] LAB Device ID [id number] 02/27/2025 12:30 PM EDT [facility] Specimen Type POC Capillary 02/27/2025 12:30 PM EDT [facility] Blood Capillary blood specimen / Unknown 02/27/2025 12:29 PM EDT 02/27/2025 12:30 PM EDT us Ludy Hill MD LAB POINT OF CARE TE ST DOCKED DEVICE UNSOLICITED RESULTS Final Result Performing Organization Address City/State/[facility] Co de Phone Number [facility] [address] [place] [address] * XR Panorex (02/27/2025 12:13 PM EDT) [...] in the posterior aspect of tooth #31. Fountain wear in tooth number 8, 9 and 23. No periapical lucency Procedure Note Lucas Cristobal MD - 02/27/2025 CLINICAL INDICATION: Odontogenic infection TECHNIQUE: XR PANOREX COMPARISON: None. FINDINGS: Rounded lucency in tooth #6. Aggressive destruction in the posterioraspect of tooth #31. Fountain wear in tooth number 8, 9 and [...] for testing. Comment 02/27/2025 8:21 AM EDT [facility] Readers' Advisory Service Librarian ID Daniela Carroll 025 8:21 AM EDT [facility] Device ID [id number] 02/27/2025 8:21 AM EDT [facility] Specimen Type POC Capillary 02/27/2025 8:21 AM EDT [facility] Blood Capillary blood specimen / Unknown 02/27/2025 8:19 AM EDT 02/27/2025 8:21 AM EDT us Ludy Hill MD LAB POINT OF CARE TE ST DOCKED DEVICE UNSOLICITED RESULTS Final Result Performing Organization Address City/State/[facility] de Phone Number [facility] [address] [place] [address] * (ABNORMAL) POCT glucose meter (02/26/2025 7:37 PM EDT) Pathologist [facility] POCT Glucose 327(H) 74 - 99 [...] Comment 02/26/2025 7:38 PM EDT [facility] Readers' Advisory Service Librarian ID Daniela Mcbride 02/26/2025 7:38 PM EDT [facility] Device ID [id number] 02/26/2025 7:38 PM EDT [facility]ARE [facility] Specimen [...] de Phone Number [facility] [address] [place] [address] * (ABNORMAL) POCT glucose meter (02/26/2025 5:16 PM EDT) [facility] Signature POCT Glucose 208(H) 74 [...] Comment 02/26/2025 5:18 PM EDT [facility] Readers' Advisory Service Librarian ID Bassem Jay 02/26/2025 5:18 PM EDT [facility] Device ID [id number] 02/26/2025 5:18 PM EDT [facility] Specimen [...] de Phone Number [facility] [address] [place] [address] * (ABNORMAL) POCT glucose meter (02/26/2025 1:08 PM EDT) [facility] POCT Glucose 223(H) 74 - 99 [...] 02/26/2025 1:09 PM EDT [facility] Readers' Advisory Service Librarian ID Bassem Jay 02/26/2025 1:09 PM EDT [facility] Device ID [id number] 02/26/2025 1:09 PM EDT [facility] Specimen Type POC Capillary 02/26/2025 1:09 PM EDT [facility] Blood Capillary blood specimen / Unknown 02/26/2025 1:08 PM EDT 02/26/2025 1:09 PM EDT Ludy Hill MD LAB POINT OF CARE TE ST DOCKED DEVICE UNSOLICITED RESULTS Final Result Performing Organization Address City/State/[facility] Co de Phone Number [facility]CARE [facility] [address] [place] [address] * (ABNORMAL) POCT glucose meter (02/26/2025 9:45 AM EDT) [facility] POCT Glucose 187(H) 74 - 99 [...] 02/26/2025 9:46 AM EDT [facility] Readers' Advisory Service Librarian ID Bassem Jay 02/26/2025 9:46 AM EDT [facility] Device ID [id number] 02/26/2025 9:46 AM EDT [facility] Specimen Type POC Capillary 02/26/2025 9:46 AM EDT [facility] Blood Capillary blood specimen / Unknown 02/26/2025 9:45 AM EDT 02/26/2025 9:46 AM EDT us Ludy Hill MD LAB POINT OF CARE TE ST DOCKED DEVICE UNSOLICITED RESULTS Final Result [facility] [address] [place] [id number] * (ABNORMAL) Hemogram (CBC) (02/26/2025 4:51 AM EDT) WBC Count 7.59 3.70 - 10.30 10*3/uL LAB HEMATOLOGY METHOD 02/26/2025 5:25 AM EDT [facility] RBC Count 4.00 3.90 - 5.20 10*6/uL LAB HEMATOLOGY METHOD 02/26/2025 5:25 AM EDT [facility] HGB 10.3(L) 11.2 - 15.7 g/dL LAB HEMATOLOGY METHOD 02/26/2025 5:25 AM EDT [facility] HCT 32.3(L) 34.0 - 45.0 % LAB HEMATOLOGY METHOD 02/26/2025 5:25 AM EDT [facility] Platelet Count 375(H) 155 - 369 10*3/uL LAB HEMATOLOGY METHOD 02/26/2025 5:25 AM EDT [facility] MCV 81 79 - 98 fL LAB HEMATOLOGY METHOD 02/26/2025 5:25 AM EDT [facility] MCH 25.8(L) 26.0 - 32.0 pg LAB HEMATOLOGY METHOD 02/26/2025 5:25 AM EDT [facility] MCHC 31.9 30.7 - 35.5 g/dL LAB HEMATOLOGY METHOD 02/26/2025 5:25 AM EDT [facility] RDW 15.5(H) 11.5 - 14.5 % LAB HEMATOLOGY METHOD 02/26/2025 5:25 AM EDT [facility] MPV 8.9 8.8 - 12.5 fL LAB HEMATOLOGY METHOD 02/26/2025 5:25 AM EDT [facility] nRBC 0.0 <=0.0 per 100 WBCs LAB HEMATOLOGY METHOD 02/26/2025 5:25 AM EDT [facility] Blood Venous blood specimen / Unknown Venipuncture / Unknown 02/26/2025 4:51 AM EDT 02/26/2025 5:12 AM EDT us Ludy Hill MD LAB BLOOD ORDERABLES Final Resul t Performing Organization Address City/[facility]/ZIP Co de Phone Number [facility] [address] [place] [address] * (ABNORMAL) Magnesium, Plasma (02/26/2025 4:51 AM EDT) Magnesium, Plasma 1.7(L) 1.9 - 2.4 mg/dL 02/26/2025 5:54 AM EDT [facility] Blood Venous blood specimen / Unknown Venipuncture / Unknown 02/26/2025 4:51 AM EDT 02/26/2025 5:13 AM EDT us Ludy Hill MD LAB BLOOD ORDERABLES Final Resul t Performing Organization Address City/[facility] Co de Phone Number [facility] [address] [place] [address] * (ABNORMAL) Renal function panel (02/26/2025 4:51 AM EDT) Glucose, Plasma 156(H) 74 - 99 mg/dL 02/26/2025 5:54 AM EDT [facility] BUN, Plasma 26(H) 8 - 23 mg/dL 02/26/2025 5:54 AM EDT [facility] Creatinine, Plasma 1.62(H) 0.60 - 1.10 mg/dL 02/26/2025 5:54 AM EDT [facility] BUN/Creatinine Ratio 16 02/26/2025 5:54 AM EDT [facility] Sodium, Plasma 133(L) 136 - 145 mmol/L 02/26/2025 5:54 AM EDT [facility] Potassium, Plasma 4.2 3.6 - 4.9 mmol/L 02/26/2025 5:54 AM EDT [facility] Chloride, Plasma 96(L) 97 - 107 mmol/L 02/26/2025 5:54 AM EDT [facility] CO2, Plasma 24 22 - 29 mmol/L 02/26/2025 5:54 AM EDT [facility] Anion Gap 13 6 - 16 mmol/L 02/26/2025 5:54 AM EDT [facility] Total Calcium, Plasma 8.9 8.9 - 10.2 mg/dL 02/26/2025 5:54 AM EDT [facility] Phosphorus, Plasma 3.8 2.5 - 4.5 mg/dL 02/26/2025 5:54 AM EDT [facility] Albumin, Plasma 3.5 3.5 - 5.2 g/dL 02/26/2025 5:54 AM EDT [facility] eGFRcr 35.1 mL/min/1.7 3m*2 02/26/2025 5:54 AM EDT [facility] Comment:Reported eGFRcr in m L/min/1.73m2 is based the CKD-EPI 2020 equation that does not use a race coefficient. Blood Venous blood specimen / Unknown Venipuncture / Unknown 02/26/2025 4:51 AM EDT 02/26/2025 5:13 AM EDT us Ludy Hill MD LAB BLOOD ORDERABLES Final Resul t [facility] [address] [place] [address] * (ABNORMAL) POCT glucose meter (02/25/2025 8:37 PM EDT) POCT Glucose 289(H) 74 - 99 mg/dL 02/25/2025 8:39 PM EDT [facility] Comment:Accuracy of a glucos e result [...] Comment 02/25/2025 8:39 PM EDT [facility] Readers' Advisory Service Librarian ID Daniela Mcbride 02/25/2025 8:39 PM EDT [facility] Device ID [id number] 02/25/2025 8:39 PM EDT [facility] Specimen Type POC Capillary 02/25/2025 8:39 PM EDT [facility] Blood Capillary blood specimen / Unknown 02/25/2025 8:37 PM EDT 02/25/2025 8:39 PM EDT Ludy Hill MD LAB POINT OF CARE TE ST DOCKED DEVICE UNSOLICITED RESULTS Final Result Performing Organization Address City/[facility] Co de Phone Number [facility] [address] [place] [address] * ECG Adult (02/25/2025 6:38 PM EDT) EKG DIAGNOSIS CLASS Abnormal MUSE ECG Ventricular Rate 68 BPM MUSE ECG Atrial Rate 68 BPM MUSE ECG [place] Interval 198 ms MUSE ECG QRSD Interval 136 ms MUSE ECG QT Interval 450 ms MUSE ECG QTC Interval 478 ms MUSE ECG P [place] 71 degrees MUSE ECG R [place] 265 degrees MUSE ECG T Wave [place] 50 degrees MUSE ECG Diagnosis Sinus rhythm with marked sinus arrhythmia MUSE ECG Diagnosis Right bundle branch block MUSE ECG Diagnosis Abnormal ECG MUSE ECG Diagnosis MUSE ECG Diagnosis Confirmed by Karly Gracia ([id number]) on 02/26/2025 3:20:41 PM MUSE ECG 02/25/2025 6:38 PM EDT 02/26/2025 3:20 PM EDT us Ludy Hill MD ECG ORDERABLES Final Result Performing Organization Address [facility] Co de Phone Number MUSE [...] 02/25/2025 5:30 PM EDT [facility] Readers' Advisory Service Librarian ID Bassem Jay 02/25/2025 5:30 PM EDT [facility] Device ID [id number] 02/25/2025 5:30 PM EDT [facility] Specimen Type POC Capillary 02/25/2025 5:30 PM EDT [facility] Blood Capillary blood specimen / Unknown 02/25/2025 5:28 PM EDT 02/25/2025 5:30 PM EDT Ludy Hill MD LAB POINT OF CARE TE ST DOCKED DEVICE UNSOLICITED RESULTS Final Result Performing Organization Address [facility] de Phone Number [facility] [address] [place] [address] * (ABNORMAL) POCT glucose meter (02/25/2025 1:08 PM EDT) [facility] Signature POCT Glucose 157(H) 74 - 99 mg/dL [...] 02/25/2025 1:09 PM EDT [facility] Readers' Advisory Service Librarian ID Bassem Jay 02/25/2025 1:09 PM EDT [facility] Device ID [id number] 02/25/2025 1:09 PM EDT [facility] Specimen Type POC Capillary 02/25/2025 1:09 PM EDT [facility] Blood Capillary blood specimen / Unknown 02/25/2025 1:08 PM EDT 02/25/2025 1:09 PM EDT us Ludy Hill MD LAB POINT OF CARE TE ST DOCKED DEVICE UNSOLICITED RESULTS Final Result Performing Organization Address City/[facility] Co de Phone Number [facility] [address] [place] [address] * ECG Adult (02/25/2025 12:27 PM EDT) EKG DIAGNOSIS CLASS Abnormal MUSE ECG Ventricular Rate 79 BPM MUSE ECG Atrial Rate 79 BPM MUSE ECG [place] Interval 184 ms MUSE ECG QRSD Interval 134 ms MUSE ECG QT Interval 414 ms MUSE ECG QTC Interval 474 ms MUSE ECG R [place] 229 degrees MUSE ECG T Wave [place] 59 degrees MUSE ECG Diagnosis Sinus rhythm with premature supraventricular complexes MUSE ECG Diagnosis Right bundle branch block MUSE ECG Diagnosis Abnormal ECG MUSE ECG Diagnosis MUSE ECG Diagnosis Confirmed by Bert Pierre ([id number]) on 02/25/2025 2:37:14 PM MUSE ECG 02/25/2025 12:2 7 PM EDT 02/25/2025 2:37 PM EDT us Ludy Hill MD ECG ORDERABLES Final Result MUSE ECG * (ABNORMAL) POCT glucose meter (02/25/2025 8:21 AM EDT) POCT Glucose 128(H) 74 - [...] Comment 02/25/2025 8:22 AM EDT [facility] Readers' Advisory Service Librarian ID Bassem Jay 02/25/2025 8:22 AM EDT [facility] Device ID [id number] 02/25/2025 8:22 AM EDT [facility] Specimen Type POC Capillary 02/25/2025 8:22 AM EDT [facility] Blood Capillary blood specimen / Unknown 02/25/2025 8:21 AM EDT 02/25/2025 8:22 AM EDT us Luda Ralph MD LAB POINT OF CARE TE ST DOCKED DEVICE UNSOLICITED RESULTS Final Result [facility] [address] [place] [address] * (ABNORMAL) Cystatin C (02/25/2025 1:36 AM EDT) Pathologist [facility] Cystatin C 2.37(H) 0.61 - 0.95 mg/L 02/25/2025 2:27 AM EDT [facility] Blood Venous blood specimen / Unknown Venipuncture / Unknown 02/25/2025 1:36 AM EDT 02/25/2025 1:57 AM EDT us Luda Ralph MD LAB BLOOD ORDERABLES Final R esult Performing Organization Address City/[facility]/ZIP Co de Phone Number [facility] [address] [place] [address] * (ABNORMAL) Basic Metabolic Panel, Plasma (02/25/2025 1:36 AM EDT) Pathologist [facility] Glucose, Plasma 95 74 - 99 mg/dL 02/25/2025 2:27 AM EDT [facility] BUN, Plasma 34(H) 8 - 23 mg/dL 02/25/2025 2:27 AM EDT [facility] Creatinine, Plasma 1.62(H) 0.60 - 1.10 mg/dL 02/25/2025 2:27 AM EDT [facility] BUN/Creatinine Ratio 21 02/25/2025 2:27 AM EDT [facility] Sodium, Plasma 134(L) 136 - 145 mmol/L 02/25/2025 2:27 AM EDT [facility] Potassium, Plasma 3.9 3.6 - 4.9 mmol/L 02/25/2025 2:27 AM EDT [facility] Chloride, Plasma 97 97 - 107 mmol/L 02/25/2025 2:27 AM EDT [facility] CO2, Plasma 23 22 - 29 mmol/L 02/25/2025 2:27 AM EDT [facility] Anion Gap 14 6 - 16 mmol/L 02/25/2025 2:27 AM EDT [facility] Total Calcium, Plasma 8.9 8.9 - 10.2 mg/dL 02/25/2025 2:27 AM EDT [facility] eGFRcr 35.1 mL/min/1.7 3m*2 02/25/2025 2:27 AM EDT [facility] Comment:Reported eGFRcr in m L/min/1.73m2 is based the CKD-EPI 2020 equation that does not use a race coefficient. Blood Venous blood specimen / Unknown Venipuncture / Unknown 02/25/2025 1:36 AM EDT 02/25/2025 1:57 AM EDT us Luda Ralph MD LAB BLOOD ORDERABLES Final R esult Performing Organization Address [facility] Co de Phone Number [facility] [address] [place] [address] * (ABNORMAL) POCT glucose meter (02/24/2025 8:21 [...] Comment 02/24/2025 8:22 PM EDT [facility] Readers' Advisory Service Librarian ID Daniela Mcbride 02/24/2025 8:22 PM EDT [facility] Device ID [id number] 02/24/2025 8:22 PM EDT [facility] Specimen Type POC Capillary 02/24/2025 8:22 PM EDT [facility] Blood Capillary blood specimen / Unknown 02/24/2025 8:21 PM EDT 02/24/2025 8:22 PM EDT us Luda Ralph MD LAB POINT OF CARE TE ST DOCKED DEVICE UNSOLICITED RESULTS Final Result Performing Organization Address City/[facility]/ZIP Co de Phone Number [facility] [address] [place] [address] * POCT glucose meter (02/24/2025 5:55 PM EDT) [facility] POCT Glucose 93 74 - 99 mg/dL [...] for testing. Comment 02/24/2025 5:56 PM EDT [facility] Readers' Advisory Service Librarian ID Delroy Bernal 02/24/2025 5:56 PM EDT [facility] Device ID [id number] 02/24/2025 5:56 PM EDT [facility] Specimen Type POC Capillary 02/24/2025 5:56 PM EDT [facility] Blood Capillary blood specimen / Unknown 02/24/2025 5:55 PM EDT 02/24/2025 5:56 PM EDT us Luda Ralph MD LAB POINT OF CARE TE ST DOCKED DEVICE UNSOLICITED RESULTS Final Result Performing Organization Address City/State/[facility] Co de Phone Number [facility] [address] [place] [address] * (ABNORMAL) POCT glucose meter (02/24/2025 11:26 AM EDT) [facility] POCT Glucose 128(H) 74 - 99 [...] for testing. Comment 02/24/2025 11:27 AM EDT [facility] Readers' Advisory Service Librarian ID Delroy Bernal 02/24/2025 11:27 AM EDT [facility] Device ID [id number] 02/24/2025 11:27 AM EDT [facility] Specimen Type POC Capillary 02/24/2025 11:27 AM EDT [facility] Blood Capillary blood specimen / Unknown 02/24/2025 11:26 AM EDT 02/24/2025 11:27 AM EDT Luda Ralph MD LAB POINT OF CARE TE ST DOCKED DEVICE UNSOLICITED RESULTS Final Result [facility] [address] [place] [id number] * [place] [facility], E/M 30-74 MINUTES (02/24/2025 7:08 [...] reflects hypovolemia in setting of acute illness. Luda Ralph MD IN CLINIC/BEDSIDE ORDERABLES Final [...] Comment 02/24/2025 5:22 AM EDT [facility] Readers' Advisory Service Librarian ID Daniela Mcbride 02/24/2025 5:22 AM EDT [facility] Device ID [id number] 02/24/2025 5:22 AM EDT [facility] Specimen Type POC Capillary 02/24/2025 5:22 AM EDT [facility] Blood Capillary blood specimen / Unknown 02/24/2025 5:20 AM EDT 02/24/2025 5:22 AM EDT Luda Ralph MD LAB POINT OF CARE TE ST DOCKED DEVICE UNSOLICITED RESULTS Final Result Performing Organization Address City/[facility]/ZIP Co de Phone Number [facility] [address] [place] [address] * (ABNORMAL) Cystatin C (02/24/2025 1:01 AM EDT) [facility] Cystatin C 2.5(H) 0.61 - 0.95 mg/L 02/24/2025 10:16 AM EDT [facility] Blood Venous blood specimen / Unknown Venipuncture / Unknown 02/24/2025 1:01 AM EDT 02/24/2025 1:06 AM EDT Luda Ralph MD LAB BLOOD ORDERABLES Final R esult [facility] [address] [place] [address] * (ABNORMAL) CBC and Differential (02/24/2025 1:01 AM EDT) [facility] WBC Count 9.39 3.70 - 10.30 10*3/uL LAB HEMATOLOGY METHOD 02/24/2025 1:16 AM EDT [facility] RBC Count 3.53(L) 3.90 - 5.20 10*6/uL LAB HEMATOLOGY METHOD 02/24/2025 1:16 AM EDT [facility] HGB 9.1(L) 11.2 - 15.7 g/dL LAB HEMATOLOGY METHOD 02/24/2025 1:16 AM EDT [facility] HCT 28.3(L) 34.0 - 45.0 % LAB HEMATOLOGY METHOD 02/24/2025 1:16 AM EDT [facility] Platelet Count 315 155 - 369 10*3/uL LAB HEMATOLOGY METHOD 02/24/2025 1:16 AM EDT [facility] MCV 80 79 - 98 fL LAB HEMATOLOGY METHOD 02/24/2025 1:16 AM EDT [facility] MCH 25.8(L) 26.0 - 32.0 pg LAB HEMATOLOGY METHOD 02/24/2025 1:16 AM EDT [facility] MCHC 32.2 30.7 - 35.5 g/dL LAB HEMATOLOGY METHOD 02/24/2025 1:16 AM EDT [facility] RDW 15.2(H) 11.5 - 14.5 % LAB HEMATOLOGY METHOD 02/24/2025 1:16 AM EDT [facility] MPV 9.3 8.8 - 12.5 fL LAB HEMATOLOGY METHOD 02/24/2025 1:16 AM EDT [facility] nRBC 0.0 <=0.0 per 100 WBCs LAB HEMATOLOGY METHOD 02/24/2025 1:16 AM EDT [facility] Differential Type Automated LAB HEMATOLOGY METHOD 02/24/2025 1:16 AM EDT [facility] Neutrophils % 71 % LAB HEMATOLOGY METHOD 02/24/2025 1:16 AM EDT [facility] Lymphocytes % 15 % LAB HEMATOLOGY METHOD 02/24/2025 1:16 AM EDT [facility] Monocytes % 13 % LAB HEMATOLOGY METHOD 02/24/2025 1:16 AM EDT [facility] Eosinophils % 0 % LAB HEMATOLOGY METHOD 02/24/2025 1:16 AM EDT [facility] Basophils % 0 % LAB HEMATOLOGY METHOD 02/24/2025 1:16 AM EDT [facility] Immature Granulocytes % 1 % LAB HEMATOLOGY METHOD 02/24/2025 1:16 AM EDT [facility] Neutrophils Absolute 6.64(H) 1.60 - 6.10 10*3/uL LAB HEMATOLOGY METHOD 02/24/2025 1:16 AM EDT [facility] Lymphocytes Absolute 1.40 1.20 - 3.90 10*3/uL LAB HEMATOLOGY METHOD 02/24/2025 1:16 AM EDT [facility] Monocytes Absolute 1.25(H) 0.30 - 0.90 10*3/uL LAB HEMATOLOGY METHOD 02/24/2025 1:16 AM EDT [facility] Eosinophils Absolute 0.02 0.00 - 0.50 10*3/uL LAB HEMATOLOGY METHOD 02/24/2025 1:16 AM EDT [facility] Basophils Absolute 0.02 0.00 - 0.10 10*3/uL LAB HEMATOLOGY METHOD 02/24/2025 1:16 AM EDT [facility] Immature Granulocytes Absolute 0.06 0.00 - 0.06 10*3/uL LAB HEMATOLOGY METHOD 02/24/2025 1:16 AM EDT [facility] Blood Venous blood specimen / Unknown Venipuncture / Unknown 02/24/2025 1:01 AM EDT 02/24/2025 1:06 AM EDT Narrative [facility] - 02/24/2025 1:16 AM EDT Therapeutic decision making should be based on absolute values, rather than percentages. us Luda Ralph MD LAB BLOOD ORDERABLES Final R esult [facility] [address] [place] [address] * (ABNORMAL) Comprehensive metabolic panel (02/24/2025 1:01 AM EDT) Glucose, Plasma 152(H) 74 - 99 mg/dL 02/24/2025 1:44 AM EDT [facility] BUN, Plasma 40(H) 8 - 23 mg/dL 02/24/2025 1:44 AM EDT [facility] Creatinine, Plasma 2.04(H) 0.60 - 1.10 mg/dL 02/24/2025 1:44 AM EDT [facility] BUN/Creatinine Ratio 20 02/24/2025 1:44 AM EDT [facility] Sodium, Plasma 132(L) 136 - 145 mmol/L 02/24/2025 1:44 AM EDT [facility] Potassium, Plasma 4.9 3.6 - 4.9 mmol/L 02/24/2025 1:44 AM EDT [facility] Chloride, Plasma 97 97 - 107 mmol/L 02/24/2025 1:44 AM EDT [facility] CO2, Plasma 22 22 - 29 mmol/L 02/24/2025 1:44 AM EDT [facility] Anion Gap 13 6 - 16 mmol/L 02/24/2025 1:44 AM EDT [facility] Total Calcium, Plasma 8.6(L) 8.9 - 10.2 mg/dL 02/24/2025 1:44 AM EDT [facility] Total Protein 6.9 6.3 - 7.9 g/dL 02/24/2025 1:44 AM EDT [facility] Albumin, Plasma 3.3(L) 3.5 - 5.2 g/dL 02/24/2025 1:44 AM EDT [facility] AST, Plasma 16 10 - 35 U/L 02/24/2025 1:44 AM EDT [facility] Comment:Hemolyzed, result ma y be falsely increased. ALT, Plasma 15 10 - 35 U/L 02/24/2025 1:44 AM EDT [facility] Alkaline Phosphatase, Plasma 105 46 - 142 U/L 02/24/2025 1:44 AM EDT [facility] Total Bilirubin, Plasma <0.2(L) 0.2 - 1.1 mg/dL 02/24/2025 1:44 AM EDT [facility] eGFRcr 26.6 mL/min/1.7 3m*2 02/24/2025 1:44 AM EDT [facility] Comment:Reported eGFRcr in m L/min/1.73m2 is based the CKD-EPI 2020 equation that does not use a race coefficient. Blood Venous blood specimen / Unknown Venipuncture / Unknown 02/24/2025 1:01 AM EDT 02/24/2025 1:06 AM EDT us Luda Ralph MD LAB BLOOD ORDERABLES Final R esult Performing Organization Address City/[facility] [place] [address] * (ABNORMAL) Ionized calcium, whole blood (02/24/2025 1:01 AM EDT) Ionized Calcium, Whole Blood 4.4(L) 4.6 - 5.1 mg/dL LAB HEMATOLOGY METHOD 02/24/2025 1:14 AM EDT [facility] Blood Venous blood specimen / Unknown Venipuncture / Unknown 02/24/2025 1:01 AM EDT 02/24/2025 1:13 AM EDT us Luda Ralph MD LAB BLOOD ORDERABLES Final R esult Performing Organization Address [facility] [place] [address] * Phosphorus (02/24/2025 1:01 AM EDT) Phosphorus, Plasma 3.0 2.5 - 4.5 mg/dL 02/24/2025 1:44 AM EDT [facility] Blood Venous blood specimen / Unknown Venipuncture / Unknown 02/24/2025 1:01 AM EDT 02/24/2025 1:06 AM EDT us Luda Ralph MD LAB BLOOD ORDERABLES Final R esult Performing Organization Address City/[facility] Co de Phone Number [facility] [address] [place] [address] * Magnesium, Plasma (02/24/2025 1:01 AM EDT) Magnesium, Plasma 2.2 1.9 - 2.4 mg/dL 02/24/2025 1:44 AM EDT [facility] Blood Venous blood specimen / Unknown Venipuncture / Unknown 02/24/2025 1:01 AM EDT 02/24/2025 1:06 AM EDT Luda Ralph MD LAB BLOOD ORDERABLES Final R esult Performing Organization Address [facility] Co de Phone Number [facility] [address] [place] [address] * (ABNORMAL) Procalcitonin (02/24/2025 1:01 AM EDT) Procalcitonin, Plasma 0.12(H) <0.09 ng/mL 02/24/2025 1:44 AM EDT [facility] Blood Venous blood specimen / Unknown Venipuncture / Unknown 02/24/2025 1:01 AM EDT 02/24/2025 1:06 AM EDT Narrative [facility] - 02/24/2025 1:44 AM EDT [...] predict 28 day mortality risk. Please consult [email or web address] for more information. Test performed at [facility], Core Laboratory. Luda Ralph MD LAB BLOOD ORDERABLES Final R esult Performing Organization Address [facility]/ZIP Co de Phone Number [facility] [address] [place] [address] * (ABNORMAL) Blood gas panel, venous (02/24/2025 1:01 AM EDT) pH, Venous 7.43 7.32 - 7.43 LAB HEMATOLOGY METHOD 02/24/2025 1:19 AM EDT [facility] pCO2, Venous 40 37 - 52 mmHg LAB HEMATOLOGY METHOD 02/24/2025 1:19 AM EDT [facility] pO2, Venous 143(H) 25 - 40 mmHg LAB HEMATOLOGY METHOD 02/24/2025 1:19 AM EDT [facility] SO2, Measured, Venous 98(H) 65 - 80 % LAB HEMATOLOGY METHOD 02/24/2025 1:19 AM EDT [facility] Base Excess, Venous 1.9 -2.0 - 3.0 mmol/L LAB HEMATOLOGY METHOD 02/24/2025 1:19 AM EDT [facility] Bicarbonate, Calculated, Venous 27(H) 22 - 26 mmol/L LAB HEMATOLOGY METHOD 02/24/2025 1:19 AM EDT [facility] Hematocrit, Whole Blood 27.7(L) 34.0 - 45.0 % LAB HEMATOLOGY METHOD 02/24/2025 1:19 AM EDT [facility] Sodium, Whole Blood 132(L) 136 - 145 mmol/L LAB HEMATOLOGY METHOD 02/24/2025 1:19 AM EDT [facility] Potassium, Whole Blood 4.3 3.6 - 4.9 mmol/L LAB HEMATOLOGY METHOD 02/24/2025 1:19 AM EDT [facility] Chloride, Whole Blood 99 97 - 107 mmol/L LAB HEMATOLOGY METHOD 02/24/2025 1:19 AM EDT [facility] Glucose, Whole Blood 154(H) 74 - 99 mg/dL LAB HEMATOLOGY METHOD 02/24/2025 1:19 AM EDT [facility] Lactate, Venous, Whole Blood 0.9 0.5 - 2.2 mmol/L LAB HEMATOLOGY METHOD 02/24/2025 1:19 AM EDT [facility] Ionized Calcium, Whole Blood 4.2(L) 4.6 - 5.1 mg/dL LAB HEMATOLOGY METHOD 02/24/2025 1:19 AM EDT [facility] Blood Venous blood specimen / Unknown Venipuncture / Unknown 02/24/2025 1:01 AM EDT 02/24/2025 1:13 AM EDT us Luda Ralph MD LAB BLOOD ORDERABLES Final R esult [facility] [address] [place] [address] * (ABNORMAL) POCT glucose meter (02/24/2025 1:00 AM EDT) [facility] POCT Glucose 169(H) 74 - 99 mg/dL [...] Comment 02/24/2025 1:02 AM EDT [facility] Readers' Advisory Service Librarian ID Daniela Mcbride 02/24/2025 1:02 AM EDT [facility] Device ID [id number] 02/24/2025 1:02 AM EDT [facility] Specimen Type POC Capillary 02/24/2025 1:02 AM EDT [facility] Blood Capillary blood specimen / Unknown 02/24/2025 1:00 AM EDT 02/24/2025 1:02 AM EDT Luda Ralph MD LAB POINT OF CARE TE ST DOCKED DEVICE UNSOLICITED RESULTS Final Result Performing Organization Address City/State/[facility] Co de Phone Number [facility] [address] [place] [address] * (ABNORMAL) POCT glucose meter (02/23/2025 5:07 PM EDT) [facility] POCT Glucose 202(H) 74 - 99 mg/dL 02/23/2025 5:08 PM EDT [facility] Comment:Accuracy of [...] for testing. Comment 02/23/2025 5:08 PM EDT [facility] Readers' Advisory Service Librarian ID Temi Mao 02/23/2025 5:08 PM EDT [facility] Device ID [id number] 02/23/2025 5:08 PM EDT [facility] Specimen Type POC Capillary 02/23/2025 5:08 PM EDT [facility] Blood Capillary blood specimen / Unknown 02/23/2025 5:07 PM EDT 02/23/2025 5:08 PM EDT us Luda Ralph MD LAB POINT OF CARE TE ST DOCKED DEVICE UNSOLICITED RESULTS Final Result Performing Organization Address City/[facility]/ZIP Co de Phone Number [facility] [address] [place] [address] * Sodium, urine, random (02/23/2025 3:12 PM EDT) Sodium, Urine 31 mmol/L 02/23/2025 4:03 PM EDT [facility] Urine Urine specimen from urinary conduit / Unknown Non-blood Collection / Unknown 02/23/2025 3:12 PM EDT 02/23/2025 3:24 PM EDT us Luda Ralph MD LAB URINE ORDERABLES Final R esult Performing Organization Address City/[facility] Co de Phone Number [facility] [address] [place] [address] * Osmolality, urine (02/23/2025 3:12 PM EDT) Osmolality, Urine 408 50 - 1,200 mOsm/kg 02/23/2025 3:59 PM EDT [facility] Urine Urine specimen from urinary conduit / Unknown Non-blood Collection / Unknown 02/23/2025 3:12 PM EDT 02/23/2025 3:23 PM EDT us Luda Ralph MD LAB URINE ORDERABLES Final R esult Performing Organization Address City/[facility] Co de Phone Number [facility] [address] [place] [address] * Osmolality (02/23/2025 3:04 PM EDT) Osmolality, Serum 289 280 - 301 mOsm/Kg 02/23/2025 4:11 PM EDT [facility] Blood Venous blood specimen / Unknown Venipuncture / Unknown 02/23/2025 3:04 PM EDT 02/23/2025 3:13 PM EDT us Luda Ralph MD LAB BLOOD ORDERABLES Final R esult Performing Organization Address City/[facility]/ZIP Co de Phone Number [facility] [address] [place] [address] * (ABNORMAL) Cystatin C (02/23/2025 3:04 PM EDT) [facility] Cystatin C 2.32(H) 0.61 - 0.95 mg/L 02/23/2025 3:44 PM EDT [facility] Blood Venous blood specimen / Unknown Venipuncture / Unknown 02/23/2025 3:04 PM EDT 02/23/2025 3:13 PM EDT us Luda Ralph MD LAB BLOOD ORDERABLES Final R esult Performing Organization Address [facility] [place] [address] * (ABNORMAL) Sodium (02/23/2025 3:04 PM EDT) [facility] Sodium, Plasma 129(L) 136 - 145 mmol/L 02/23/2025 3:44 PM EDT [facility] Blood Venous blood specimen / Unknown Venipuncture / Unknown 02/23/2025 3:04 PM EDT 02/23/2025 3:13 PM EDT us Luda Ralph MD LAB BLOOD ORDERABLES Final R [facility] Performing Organization Address City/[facility]/ZIP Co de Phone Number [facility] [address] [place] [address] * (ABNORMAL) POCT glucose meter (02/23/2025 11:43 AM EDT) [facility] POCT Glucose 222(H) 74 - 99 mg/dL 02/23/2025 11:44 AM EDT [facility] Comment:Accuracy of a glucos e result [...] Comment 02/23/2025 11:44 AM EDT [facility] Readers' Advisory Service Librarian ID Temi Mao 02/23/2025 11:44 AM EDT [facility] Device ID [id number] 02/23/2025 11:44 AM EDT [facility] Specimen Type POC Capillary 02/23/2025 11:44 AM EDT [facility] Blood Capillary blood specimen / Unknown 02/23/2025 11:43 AM EDT 02/23/2025 11:44 AM EDT us Luda Ralph MD LAB POINT OF CARE TE ST DOCKED DEVICE UNSOLICITED RESULTS Final Result Performing Organization Address City/[facility] Co de Phone Number [facility] [address] [place] [address] * Streptococcus pneumoniae and Legionella Urinary Antigen (02/23/2025 11:05 AM EDT) Legionella pneumophila serogroup 1 Antigen Result (Urine) Negative Negative 02/24/2025 7:01 AM EDT [facility] Streptococcus pneumoniae Antigen Result (Urine) Negative Negative 02/24/2025 7:01 AM EDT [facility] Urine Urine specimen obtained by clean catch procedure / Unknown Non-blood Collection / Unknown 02/23/2025 11:05 AM EDT 02/23/2025 11:16 AM EDT us Luda Ralph MD LAB MICROBIOLOGY - GENERAL O RDERABLES Final Result [facility] [address] [place] [address] * [place] [facility], E/M 30-74 MINUTES (02/23/2025 9:10 [...] Plasma 25.9 ug/mL 02/23/2025 9:20 AM EDT [facility] Blood Venous blood specimen / Unknown Venipuncture / Unknown 02/23/2025 8:34 AM EDT 02/23/2025 8:50 AM EDT Luda Ralph MD LAB BLOOD ORDERABLES Final R esult [facility] [address] [place] [address] * (ABNORMAL) Sodium (02/23/2025 8:34 AM EDT) Sodium, Plasma 127(L) 136 - 145 mmol/L 02/23/2025 9:20 AM EDT [facility] Blood Venous blood specimen / Unknown Venipuncture / Unknown 02/23/2025 8:34 AM EDT 02/23/2025 8:50 AM EDT us Luda Ralph MD LAB BLOOD ORDERABLES Final R esult [facility] [address] [place] [address] * (ABNORMAL) Blood gas panel, venous (02/23/2025 8:34 AM EDT) pH, Venous 7.39 7.32 - 7.43 LAB HEMATOLOGY METHOD 02/23/2025 8:52 AM EDT [facility] pCO2, Venous 44 37 - 52 mmHg LAB HEMATOLOGY METHOD 02/23/2025 8:52 AM EDT [facility] pO2, Venous 43(H) 25 - 40 mmHg LAB HEMATOLOGY METHOD 02/23/2025 8:52 AM EDT [facility] SO2, Measured, Venous 77 65 - 80 % LAB HEMATOLOGY METHOD 02/23/2025 8:52 AM EDT [facility] Base Excess, Venous 1.6 -2.0 - 3.0 mmol/L LAB HEMATOLOGY METHOD 02/23/2025 8:52 AM EDT [facility] Bicarbonate, Calculated, Venous 27(H) 22 - 26 mmol/L LAB HEMATOLOGY METHOD 02/23/2025 8:52 AM EDT [facility] Hematocrit, Whole Blood 27.4(L) 34.0 - 45.0 % LAB HEMATOLOGY METHOD 02/23/2025 8:52 AM EDT [facility] Sodium, Whole Blood 128(L) 136 - 145 mmol/L LAB HEMATOLOGY METHOD 02/23/2025 8:52 AM EDT [facility] Potassium, Whole Blood 4.7 3.6 - 4.9 mmol/L LAB HEMATOLOGY METHOD 02/23/2025 8:52 AM EDT [facility] Chloride, Whole Blood 93(L) 97 - 107 mmol/L LAB HEMATOLOGY METHOD 02/23/2025 8:52 AM EDT [facility] Glucose, Whole Blood 242(H) 74 - 99 mg/dL LAB HEMATOLOGY METHOD 02/23/2025 8:52 AM EDT [facility] Lactate, Venous, Whole Blood 1.1 0.5 - 2.2 mmol/L LAB HEMATOLOGY METHOD 02/23/2025 8:52 AM EDT [facility] Ionized Calcium, Whole Blood 4.6 4.6 - 5.1 mg/dL LAB HEMATOLOGY METHOD 02/23/2025 8:52 AM EDT [facility] Blood Venous blood specimen / Unknown Venipuncture / Unknown 02/23/2025 8:34 AM EDT 02/23/2025 8:50 AM EDT Luda Ralph MD LAB BLOOD ORDERABLES Final R esult Performing Organization Address City/[facility]/ZIP Co de Phone Number [facility] [address] [place] [address] * (ABNORMAL) POCT glucose meter (02/23/2025 5:13 AM EDT) POCT Glucose 255(H) 74 - 99 mg/dL 02/23/2025 5:14 AM EDT [facility] Comment:Accuracy of [...] Comment 02/23/2025 5:14 AM EDT [facility] Readers' Advisory Service Librarian ID Daniela Mcbride 02/23/2025 5:14 AM EDT [facility] Device ID [id number] 02/23/2025 5:14 AM EDT [facility] Specimen Type POC Capillary 02/23/2025 5:14 AM EDT [facility] Blood Capillary blood specimen / Unknown 02/23/2025 5:13 AM EDT 02/23/2025 5:14 AM EDT us Luda Ralph MD LAB POINT OF CARE TE ST DOCKED DEVICE UNSOLICITED RESULTS Final Result Performing Organization Address City/[facility]/ZIP Co de Phone Number [facility] [address] [place] [address] * (ABNORMAL) POCT glucose meter (02/23/2025 2:11 AM EDT) POCT Glucose 224(H) 74 - 99 mg/dL [...] Comment 02/23/2025 2:12 AM EDT [facility] Readers' Advisory Service Librarian ID Daniela Mcbride 02/23/2025 2:12 AM EDT [facility] Device ID [id number] 02/23/2025 2:12 AM EDT [facility] Specimen Type POC Capillary 02/23/2025 2:12 AM EDT [facility] Blood Capillary blood specimen / Unknown 02/23/2025 2:11 AM EDT 02/23/2025 2:12 AM EDT Luda Ralph MD LAB POINT OF CARE TE ST DOCKED DEVICE UNSOLICITED RESULTS Final Result Performing Organization Address [facility] de Phone Number [facility] [address] [place] [address] * (ABNORMAL) Methicillin Resistant Staphylococcus aureus (MRSA) by PCR (02/23/2025 2:05 AM EDT) [facility] Methicillin Resistant Staphylococcus aureus (MRSA) by PCR Detected( A) Not Detected 02/23/2025 4:19 AM EDT [facility] Swab Both anterior nares / Unknown Non-blood Collection / Unknown 02/23/2025 2:05 AM EDT 02/23/2025 3:06 AM EDT Narrative [facility] - 02/23/2025 4:19 AM EDT [...] O RDERABLES Final Result Performing Organization Address City/[facility] Co de Phone Number [facility] [address] [place] [address] * (ABNORMAL) Nasopharyngeal Respiratory Panel (02/23/2025 2:05 AM EDT) Human Rhinovirus/Ent erovirus PCR Result Detected( A) Not Detected 02/23/2025 5:07 AM EDT [facility] Swab Nasopharyngeal structure / Unknown Non-blood Collection / Unknown 02/23/2025 2:05 AM EDT 02/23/2025 3:06 AM EDT Narrative [facility] - 02/23/2025 5:07 AM EDT [...] Respiratory PCR Panel is performed using the [employer] ePlex instrument. This test is FDA approved for use with Nasopharyngeal swabs only. This test is used for clinical purposes. It should not be regarded as investigational or for research. The [facility] Clinical Microbiology Laboratory is certified under the Clinical Laboratory Improvement Amendments of 1988 (CLIA-88) as qualified to perform high complexity clinical laboratory testing. Luda Ralph MD LAB MICROBIOLOGY - GENERAL O RDERABLES Final Result [facility] [address] [place] [address] * Anti Xa Level Low Molecular Weight (02/23/2025 2:04 AM EDT) Anti Xa Level Low Molecular Weight Heparin 1.12 <2.00 IU/mL LAB COAGULATION METHOD 02/23/2025 2:44 AM EDT [facility] Blood Venous blood specimen / Unknown Venipuncture / Unknown 02/23/2025 2:04 AM EDT 02/23/2025 2:24 AM EDT Narrative [facility] - 02/23/2025 2:44 AM EDT Therapeutic Range: LMWH enoxaparin 1mg/kg/dose, 12hrs - peak (3-5 hours after dose): 0.5 - 1.0 IU/mL LMWH enoxaparin 1.5mg/kg/dose, 24hrs - peak (3-5 hours after dose): 1.0 - 2.0 IU/mL LMWH enoxaparin prophylaxis: Not established us Luda Ralph MD LAB BLOOD ORDERABLES Final R esult Performing Organization Address [facility] de Phone Number [facility] [address] [place] [address] * (ABNORMAL) Troponin T, High Sensitivity, 2 Hour, Plasma (02/23/2025 2:04 AM EDT) Troponin T, High Sensitivity, 2 Hour 37(H) <14 ng/L 02/23/2025 2:52 AM EDT [facility] Troponin Delta Interpretation Not Calculated 02/23/2025 2:52 AM EDT [facility] Comment:Specimen not collect ed within acceptable timeframe. Delta will not be calculated. Blood Venous blood specimen / Unknown Venipuncture / Unknown 02/23/2025 2:04 AM EDT 02/23/2025 2:24 AM EDT us Luda Ralph MD LAB BLOOD ORDERABLES Final R esult Performing Organization Address [facility] Co de Phone Number [facility] [address] [place] [address] * (ABNORMAL) Sodium (02/23/2025 2:04 AM EDT) Sodium, Plasma 125(L) 136 - 145 mmol/L 02/23/2025 2:45 AM EDT [facility] Blood Venous blood specimen / Unknown Venipuncture / Unknown 02/23/2025 2:04 AM EDT 02/23/2025 2:24 AM EDT us Luda Ralph MD LAB BLOOD ORDERABLES Final R esult [facility] [address] [place] [address] * (ABNORMAL) Blood gas panel, venous (02/23/2025 2:04 AM EDT) pH, Venous 7.39 7.32 - 7.43 LAB HEMATOLOGY METHOD 02/23/2025 2:29 AM EDT [facility] pCO2, Venous 43 37 - 52 mmHg LAB HEMATOLOGY METHOD 02/23/2025 2:29 AM EDT [facility] pO2, Venous 71(H) 25 - 40 mmHg LAB HEMATOLOGY METHOD 02/23/2025 2:29 AM EDT [facility] SO2, Measured, Venous 94(H) 65 - 80 % LAB HEMATOLOGY METHOD 02/23/2025 2:29 AM EDT [facility] Base Excess, Venous 0.7 -2.0 - 3.0 mmol/L LAB HEMATOLOGY METHOD 02/23/2025 2:29 AM EDT [facility] Bicarbonate, Calculated, Venous 26 22 - 26 mmol/L LAB HEMATOLOGY METHOD 02/23/2025 2:29 AM EDT [facility] Hematocrit, Whole Blood 26.1(L) 34.0 - 45.0 % LAB HEMATOLOGY METHOD 02/23/2025 2:29 AM EDT [facility] Sodium, Whole Blood 127(L) 136 - 145 mmol/L LAB HEMATOLOGY METHOD 02/23/2025 2:29 AM EDT [facility] Potassium, Whole Blood 4.7 3.6 - 4.9 mmol/L LAB HEMATOLOGY METHOD 02/23/2025 2:29 AM EDT [facility] Chloride, Whole Blood 93(L) 97 - 107 mmol/L LAB HEMATOLOGY METHOD 02/23/2025 2:29 AM EDT [facility] Glucose, Whole Blood 221(H) 74 - 99 mg/dL LAB HEMATOLOGY METHOD 02/23/2025 2:29 AM EDT [facility] Lactate, Venous, Whole Blood 0.9 0.5 - 2.2 mmol/L LAB HEMATOLOGY METHOD 02/23/2025 2:29 AM EDT [facility] Ionized Calcium, Whole Blood 3.7(L) 4.6 - 5.1 mg/dL LAB HEMATOLOGY METHOD 02/23/2025 2:29 AM EDT [facility] Blood Venous blood specimen / Unknown Venipuncture / Unknown 02/23/2025 2:04 AM EDT 02/23/2025 2:25 AM EDT us Luda Ralph MD LAB BLOOD ORDERABLES Final R esult Performing Organization Address City/[facility]/ZIP Co de Phone Number [facility] [address] [place] [address] * Vancomycin, random (02/23/2025 12:05 AM EDT) Vancomycin, Random, Plasma <4.0 ug/mL 02/23/2025 12:44 AM EDT [facility] Blood Venous blood specimen / Unknown Venipuncture / Unknown 02/23/2025 12:05 AM EDT 02/23/2025 12:16 AM EDT us Luda Ralph MD LAB BLOOD ORDERABLES Final R esult Performing Organization Address [facility] Co de Phone Number [facility] [address] [place] [address] * (ABNORMAL) Sodium (02/23/2025 12:05 AM EDT) Sodium, Plasma 127(L) 136 - 145 mmol/L 02/23/2025 12:44 AM EDT [facility] Blood Venous blood specimen / Unknown Venipuncture / Unknown 02/23/2025 12:05 AM EDT 02/23/2025 12:17 AM EDT us Luda Ralph MD LAB BLOOD ORDERABLES Final R esult Performing Organization Address City/[facility]/ZIP Co de Phone Number [facility] [address] [place] [address] * (ABNORMAL) Blood gas panel, venous (02/23/2025 12:05 AM EDT) pH, Venous 7.33 7.32 - 7.43 LAB HEMATOLOGY METHOD 02/23/2025 12:18 AM EDT [facility] pCO2, Venous 50 37 - 52 mmHg LAB HEMATOLOGY METHOD 02/23/2025 12:18 AM EDT [facility] pO2, Venous 60(H) 25 - 40 mmHg LAB HEMATOLOGY METHOD 02/23/2025 12:18 AM EDT [facility] SO2, Measured, Venous 89(H) 65 - 80 % LAB HEMATOLOGY METHOD 02/23/2025 12:18 AM EDT [facility] Base Excess, Venous 0.3 -2.0 - 3.0 mmol/L LAB HEMATOLOGY METHOD 02/23/2025 12:18 AM EDT [facility] Bicarbonate, Calculated, Venous 27(H) 22 - 26 mmol/L LAB HEMATOLOGY METHOD 02/23/2025 12:18 AM EDT [facility] Hematocrit, Whole Blood 28.9(L) 34.0 - 45.0 % LAB HEMATOLOGY METHOD 02/23/2025 12:18 AM EDT [facility] Sodium, Whole Blood 128(L) 136 - 145 mmol/L LAB HEMATOLOGY METHOD 02/23/2025 12:18 AM EDT [facility] Potassium, Whole Blood 4.7 3.6 - 4.9 mmol/L LAB HEMATOLOGY METHOD 02/23/2025 12:18 AM EDT [facility] Chloride, Whole Blood 93(L) 97 - 107 mmol/L LAB HEMATOLOGY METHOD 02/23/2025 12:18 AM EDT [facility] Glucose, Whole Blood 177(H) 74 - 99 mg/dL LAB HEMATOLOGY METHOD 02/23/2025 12:18 AM EDT [facility] Lactate, Venous, Whole Blood 1.7 0.5 - 2.2 mmol/L LAB HEMATOLOGY METHOD 02/23/2025 12:18 AM EDT [facility] Ionized Calcium, Whole Blood 4.4(L) 4.6 - 5.1 mg/dL LAB HEMATOLOGY METHOD 02/23/2025 12:18 AM EDT [facility] Blood Venous blood specimen / Unknown Venipuncture / Unknown 02/23/2025 12:05 AM EDT 02/23/2025 12:16 AM EDT us Luda Ralph MD LAB BLOOD ORDERABLES Final R esult [facility] [address] [place] [address] * (ABNORMAL) Troponin T, High Sensitivity, 0 Hour Plasma, Reflex to 2 Hour (02/23/2025 12:05 AM EDT) Troponin T, High Sensitivity, 0 Hour 40(H) <14 ng/L 02/23/2025 12:44 AM EDT [facility] Blood Venous blood specimen / Unknown Venipuncture / Unknown 02/23/2025 12:05 AM EDT 02/23/2025 12:17 AM EDT Luda Ralph MD LAB BLOOD ORDERABLES Final R esult Performing Organization Address [facility] [place] [address] * (ABNORMAL) Phosphorus, Plasma (02/23/2025 12:05 AM EDT) Phosphorus, Plasma 2.4(L) 2.5 - 4.5 mg/dL 02/23/2025 12:44 AM EDT [facility] Blood Venous blood specimen / Unknown Venipuncture / Unknown 02/23/2025 12:05 AM EDT 02/23/2025 12:17 AM EDT Bobby Parra MD LAB BLOOD ORDERABLES Final R esult Performing Organization Address [facility]/ZIP Co de Phone Number [facility] [address] [place] [address] * (ABNORMAL) Magnesium, Plasma (02/23/2025 12:05 AM EDT) Magnesium, Plasma 2.5(H) 1.9 - 2.4 mg/dL 02/23/2025 12:44 AM EDT [facility] Blood Venous blood specimen / Unknown Venipuncture / Unknown 02/23/2025 12:05 AM EDT 02/23/2025 12:17 AM EDT Bobby Parra MD LAB BLOOD ORDERABLES Final R esult [facility] [address] [place] [address] * (ABNORMAL) Basic Metabolic Panel, Plasma (02/23/2025 12:05 AM EDT) Glucose, Plasma 180(H) 74 - 99 mg/dL 02/23/2025 12:44 AM EDT [facility] BUN, Plasma 42(H) 8 - 23 mg/dL 02/23/2025 12:44 AM EDT [facility] Creatinine, Plasma 2.26(H) 0.60 - 1.10 mg/dL 02/23/2025 12:44 AM EDT [facility] BUN/Creatinine Ratio 19 02/23/2025 12:44 AM EDT [facility] Sodium, Plasma 127(L) 136 - 145 mmol/L 02/23/2025 12:44 AM EDT [facility] Potassium, Plasma 4.9 3.6 - 4.9 mmol/L 02/23/2025 12:44 AM EDT [facility] Chloride, Plasma 91(L) 97 - 107 mmol/L 02/23/2025 12:44 AM EDT [facility] CO2, Plasma 23 22 - 29 mmol/L 02/23/2025 12:44 AM EDT [facility] Anion Gap 13 6 - 16 mmol/L 02/23/2025 12:44 AM EDT [facility] Total Calcium, Plasma 9.0 8.9 - 10.2 mg/dL 02/23/2025 12:44 AM EDT [facility] eGFRcr 23.5 mL/min/1.7 3m*2 02/23/2025 12:44 AM EDT [facility] Comment:Reported eGFRcr in m L/min/1.73m2 is based the CKD-EPI 2020 equation that does not use a race coefficient. Blood Venous blood specimen / Unknown Venipuncture / Unknown 02/23/2025 12:05 AM EDT 02/23/2025 12:17 AM EDT us Bobby Parra MD LAB BLOOD ORDERABLES Final R esult [facility] [address] [place] [address] * (ABNORMAL) POCT glucose meter (02/23/2025 12:04 AM EDT) [facility] POCT Glucose 189(H) 74 - 99 [...] for testing. Comment 02/23/2025 12:06 AM EDT [facility] Readers' Advisory Service Librarian ID Daniela Mcbride 02/23/2025 12:06 AM EDT [facility] Device ID [id number] 02/23/2025 12:06 AM EDT [facility] Specimen Type POC Capillary 02/23/2025 12:06 AM EDT [facility] Blood Capillary blood specimen / Unknown 02/23/2025 12:04 AM EDT 02/23/2025 12:06 AM EDT Luda Ralph MD LAB POINT OF CARE TE ST DOCKED DEVICE UNSOLICITED RESULTS Final Result Performing Organization Address City/[facility]/ZIP Co de Phone Number [facility] [address] [place] [address] * (ABNORMAL) Quantitative BAL/PAL/Bronch Wash Culture and Gram StainProtected Alveolar Lavage (02/23/2025 12:00 AM EDT) [facility] Culture [id number] CFU/mL Mixed upper respiratory jesus(A) 02/24/2025 12:09 PM EDT [facility] Comment:The organism value f or this result has been updated. These results have been appended to the previously preliminary verified report. Gram Stain Result Numerous Polymorphonuclear leukocytes(A) 02/24/2025 12:09 PM EDT [facility] Gram Stain Result Numerous Gram positive cocci in pairs(A) 02/24/2025 12:09 PM EDT [facility] Gram Stain Result Moderate Gram positive cocci in clusters(A) 02/24/2025 12:09 PM EDT [facility] Gram Stain Result Moderate Gram positive rods(A) 02/24/2025 12:09 PM EDT [facility] Protected Alveolar Lavage (Protected Alveolar Lavage) 02/23/2025 12:00 AM EDT 02/23/2025 1:17 AM EDT us Luda Ralph MD LAB MICROBIOLOGY - GENERAL O RDERABLES Final Result [facility] [address] [place] [address] * ECG Adult (02/22/2025 11:57 PM EDT) EKG DIAGNOSIS CLASS Abnormal MUSE ECG Ventricular Rate 81 BPM MUSE ECG Atrial Rate 81 BPM MUSE ECG [place] Interval 204 ms MUSE ECG QRSD Interval 136 ms MUSE ECG QT Interval 428 ms MUSE ECG QTC Interval 497 ms MUSE ECG P [place] 58 degrees MUSE ECG R [place] -72 degrees MUSE ECG T Wave [place] 47 degrees MUSE ECG Diagnosis Normal sinus [...] Luda Ralph MD ECG ORDERABLES Final Result MUSE ECG * (ABNORMAL) Procalcitonin (02/22/2025 10:03 PM EDT) Procalcitonin, Plasma 0.21(H) <0.09 ng/mL 02/22/2025 10:48 PM EDT [facility] Blood Venous blood specimen / Unknown Venipuncture / Unknown 02/22/2025 10:03 PM EDT 02/22/2025 10:11 PM EDT Narrative [facility] - 02/22/2025 10:48 PM EDT [...] predict 28 day mortality risk. Please consult [email or web address] for more information. Test performed at [facility]. us Luda Ralph MD LAB BLOOD ORDERABLES Final R esult Performing Organization Address City/[facility]/ZIP Co de Phone Number [facility] [address] [place] [address] * (ABNORMAL) N-Terminal Probnp (02/22/2025 10:03 PM EDT) N-Terminal, PROBNP, Plasma 1,542(H) 0 - 899 pg/mL 02/22/2025 10:48 PM EDT [facility] Blood Venous blood specimen / Unknown Venipuncture / Unknown 02/22/2025 10:03 PM EDT 02/22/2025 10:11 PM EDT us Bobby Parra MD LAB BLOOD ORDERABLES Final R esult [facility] [address] [place] [address] * (ABNORMAL) Multi Drug Resistance Test (02/22/2025 10:02 PM EDT) Culture Methicillin-Resist ant Staphylococcus aureus(AA) 02/24/2025 6:58 AM EDT [facility] Swab (Nares and Samantha Rectal) Non-blood Collection / Unknown 02/22/2025 10:02 PM EDT 02/22/2025 10:16 PM EDT Narrative [facility] - 02/24/2025 6:58 AM EDT This test was developed and its performance characteristics determined by the [facility] Clinical Microbiology Laboratory. Although the media is FDA-approved, it is not FDA-approved for all specimen types submitted. The FDA has determined that such clearance or approval is not necessary. This test is used for surveillance purposes. It should not be regarded as investigational or for research. The [facility] Clinical Microbiology Laboratory is certified under the Clinical Laboratory Improvement Amendments of 1988 (CLIA-88) as qualified to perform high complexity clinical laboratory testing. Bobby Parra MD LAB MICROBIOLOGY - GENERAL O RDERABLES Final Result Performing Organization Address [facility] [place] [address] * Sahara auris Surveillance by PCR (02/22/2025 10:02 PM EDT) Sahara auris PCR Result Not Detected Not Detected 02/24/2025 7:03 AM EDT [facility] Swab (Axilla and Groin) Non-blood Collection / Unknown 02/22/2025 10:02 PM EDT 02/22/2025 10:16 PM EDT Narrative [facility] - 02/24/2025 7:03 AM EDT This PCR assay was developed and its performance characteristics determined by [facility] as appropriate for clinical purposes. This assay has not been cleared or approved by the FDA, but is performed in a CLIA regulated laboratory that is qualified to perform high-complexity testing. Bobby Parra MD LAB MICROBIOLOGY - GENERAL O RDERABLES Final Result Performing Organization Address [facility] [place] [address] * (ABNORMAL) Fentanyl Urine Confirm (02/22/2025 10:01 PM EDT) Fentanyl 1(H) <1 ng/mL 02/24/2025 9:18 AM EDT [facility] Norfentanyl 2(H) <2 ng/mL 02/24/2025 9:18 AM EDT [facility] Urine Urine specimen obtained by clean catch procedure / Unknown Non-blood Collection / Unknown 02/22/2025 10:01 PM EDT 02/22/2025 10:11 PM EDT Narrative [facility] - 02/24/2025 9:18 AM EDT Drug analysis is confirmed by LC-MS/MS (LC Tandem Mass Spectrometry) on Urine specimens. This test was developed and its performance characteristics determined by [facility]. It has not been cleared or approved by the FDA. The laboratory is regulated under CLIA as qualified to perform high-complexity testing. This test is used for clinical purposes. Testing is performed at the [facility], Special Chemistry Laboratory. Luda Morton MD LAB URINE ORDERABLES Final Result Performing Organization Address City/[facility]/ZIP Co de Phone Number [facility] [address] [place] [address] * SEND HECTOR MESSAGE (02/22/2025 10:01 PM EDT) Urine Urine specimen obtained by clean catch procedure / Unknown Non-blood Collection / Unknown 02/22/2025 10:01 PM EDT 02/22/2025 10:14 PM EDT Bobby Parra MD LAB URINE ORDERABLES Final R esult Performing Organization Address City/[facility] Co de Phone Number [facility] [address] [place] [address] * (ABNORMAL) Urine Culture (02/22/2025 10:01 PM EDT) Culture 100 CFU/mL Normal Urogenital Jesus(A) 02/24/2025 6:58 AM EDT [facility] Urine Urine specimen obtained by clean catch procedure / Unknown Non-blood Collection / Unknown 02/22/2025 10:01 PM EDT 02/22/2025 10:14 PM EDT oBbby Parar MD LAB MICROBIOLOGY - GENERAL O RDERABLES Final Result Performing Organization Address City/[facility]/ZIP Co de Phone Number [facility] [address] [place] [address] * Urinalysis Microscopic Examination (02/22/2025 10:01 PM EDT) Urine Urine specimen obtained by clean catch procedure / Unknown Non-blood Collection / Unknown 02/22/2025 10:01 PM EDT 02/22/2025 10:11 PM EDT Bobby Parra MD LAB URINE ORDERABLES Final R esult Performing Organization Address City/[facility]/ZIP Co de Phone Number [facility] [address] [place] [address] * Urine Salmon Panel (02/22/2025 10:01 PM EDT) Extra Sent for Culture 02/23/2025 12:01 AM EDT [facility] Urine Urine specimen obtained by clean catch procedure / Unknown Non-blood Collection / Unknown 02/22/2025 10:01 PM EDT 02/22/2025 10:14 PM EDT Bobby Parra MD LAB URINE ORDERABLES Final R esult Performing Organization Address City/[facility] Co de Phone Number [facility] [address] [place] [address] * (ABNORMAL) Urinalysis with reflex microscopic (Culture NOT Included) (02/22/2025 10:01 PM EDT) Color, Urine Red LAB URINALYSIS - AUTOMATED METHOD 02/22/2025 11:13 PM EDT [facility] Clarity, Urine Cloudy LAB URINALYSIS - AUTOMATED METHOD 02/22/2025 11:13 PM EDT [facility] Spec [place], Urine 1.010 1.005 - 1.030 LAB URINALYSIS - AUTOMATED METHOD 02/22/2025 11:13 PM EDT [facility] pH, Urine 6.5 5.0 - 8.0 LAB URINALYSIS - AUTOMATED METHOD 02/22/2025 11:13 PM EDT [facility] Protein, Urine >=300(A) Negative mg/dL LAB URINALYSIS - AUTOMATED METHOD 02/22/2025 11:13 PM EDT [facility] Glucose, Urine Negative Negative mg/dL LAB URINALYSIS - AUTOMATED METHOD 02/22/2025 11:13 PM EDT [facility] Ketones, Urine Negative Negative mg/dL LAB URINALYSIS - AUTOMATED METHOD 02/22/2025 11:13 PM EDT [facility] Blood, Urine Large(A) Negative LAB URINALYSIS - AUTOMATED METHOD 02/22/2025 11:13 PM EDT [facility] Bilirubin, Urine Small(A) Negative LAB URINALYSIS - AUTOMATED METHOD 02/22/2025 11:13 PM EDT [facility] Urobilinogen, Urine 0.2 0.2 to 1.0 mg/dL LAB URINALYSIS - AUTOMATED METHOD 02/22/2025 11:13 PM EDT [facility] Leukocytes, Urine Large(A) Negative LAB URINALYSIS - AUTOMATED METHOD 02/22/2025 11:13 PM EDT [facility] Nitrite, Urine Negative Negative LAB URINALYSIS - AUTOMATED METHOD 02/22/2025 11:13 PM EDT [facility] RBC, Urine >50(A) 0 to 3 /HPF LAB URINALYSIS - AUTOMATED METHOD 02/22/2025 11:13 PM EDT [facility] WBC, Urine >50(A) 0 to 5 /HPF LAB URINALYSIS - AUTOMATED METHOD 02/22/2025 11:13 PM EDT [facility] Squamous Epithelial Cells 0 - 2 0 to 5 /HPF LAB URINALYSIS - AUTOMATED METHOD 02/22/2025 11:13 PM EDT [facility] Hyaline Casts 0 - 2 0 to 5 /LPF LAB URINALYSIS - AUTOMATED METHOD 02/22/2025 11:13 PM EDT [facility] Bacteria, Urine Negative Negative LAB URINALYSIS - AUTOMATED METHOD 02/22/2025 11:13 PM EDT [facility] Urine Urine specimen obtained by clean catch procedure / Unknown Non-blood Collection / Unknown 02/22/2025 10:01 PM EDT 02/22/2025 10:11 PM EDT [facility] 02/22/[facility] 11:13 PM EDT Urinalysis dipstick results may be inaccurate due to specimen color or an interfering substance in the specimen. us Bobby Parra MD LAB URINE ORDERABLES Final R esult [facility] [address] [place] [address] * Drug abuse screen (02/22/2025 10:01 PM EDT) Amphetamine Screen Urine Negative Cutoff: 500 ng/mL 02/23/2025 12:22 AM EDT [facility] Benzodiazepines Screen Urine Negative Cutoff: 200 ng/mL 02/23/2025 12:22 AM EDT [facility] Cannabinoid Screen Urine Negative Cutoff: 50 ng/mL 02/23/2025 12:22 AM EDT [facility] Cocaine Screen Urine Negative Cutoff: 300 ng/mL 02/23/2025 12:22 AM EDT [facility] Barbiturate Screen Urine Negative Cutoff: 200 ng/mL 02/23/2025 12:22 AM EDT [facility] Opiate Screen Urine Negative Cutoff: 300 ng/mL 02/23/2025 12:22 AM EDT [facility] Methadone Screen Urine Negative Cutoff: 300 ng/mL 02/23/2025 12:22 AM EDT [facility] Buprenorphine Screen Urine Negative Cutoff: 10 ng/mL 02/23/2025 12:22 AM EDT [facility] Fentanyl Screen Urine Presumptive positive. Confirmation by LC-MS/MS to follow. Cutoff: 1 ng/mL 02/23/2025 12:22 AM EDT [facility] Oxycodone Screen Urine Negative Cutoff: 100 ng/mL 02/23/2025 12:22 AM EDT [facility] Urine Urine specimen obtained by clean catch procedure / Unknown Non-blood Collection / Unknown 02/22/2025 10:01 PM EDT 02/22/2025 10:11 PM EDT us Luda Morton MD LAB URINE ORDERABLES Final Result [facility] [address] [place] [address] * (ABNORMAL) POCT glucose meter (02/22/2025 9:38 [...] 02/22/2025 9:40 PM EDT [facility] Readers' Advisory Service Librarian ID Shiloh Friedman 02/23/20 9:40 PM EDT [facility] Device ID [id number] 02/22/2025 9:40 PM EDT [facility] Specimen Type POC Capillary 02/22/2025 9:40 PM EDT [facility] Blood Capillary blood specimen / Unknown 02/22/2025 9:38 PM EDT 02/22/2025 9:40 PM EDT Luda Ralph MD LAB POINT OF CARE TE ST DOCKED DEVICE UNSOLICITED RESULTS Final Result [facility] [address] [place] [address] * (ABNORMAL) POCT arterial blood gas gem (02/22/2025 9:05 PM EDT) pH, Arterial 7.45(H) 7.31 - 7.42 02/22/2025 9:06 PM EDT [facility] pCO2, Arterial 37 35 - 48 mm Hg 02/22/2025 9:06 PM EDT [facility] pO2, Arterial 86 >80 mm Hg 02/22/2025 9:06 PM EDT [facility] SO2, Arterial 98 94 - 98 % 02/22/2025 9:06 PM EDT [facility] FIO2 60.0 % 02/22/2025 9:06 PM EDT [facility] Base Excess, Arterial 1.7 -2 - 3 mmol/L 02/22/2025 9:06 PM EDT [facility] HCO3, Arterial 25.7 22 - 26 mmol/L 02/22/2025 9:06 PM EDT [facility] Total Hemoglobin, Arterial, Whole Blood 9.1(L) 11.2 - 15.7 g/dL 02/22/2025 9:06 PM EDT [facility] Hematocrit, Arterial 27.0(L) 34.0 - 45.0 % 02/22/2025 9:06 PM EDT [facility] Sodium, Arterial 125(L) 136 - 145 mmol/L 02/22/2025 9:06 PM EDT [facility] Potassium, Arterial 4.9 3.6 - 4.9 mmol/L 02/22/2025 9:06 PM EDT [facility] Comment:Hemolyzed, result ma y be falsely increased. Chloride, Whole Blood 95(L) 97 - 107 mmol/L 02/22/2025 9:06 PM EDT [facility] Glucose, Arterial 116(H) 74 - 99 mg/dL 02/22/2025 9:06 PM T [facility] Ionized Calcium, Arterial 4.8 4.6 - 5.1 mg/dL 02/22/2025 9:06 PM EDT [facility] Lactate, Arterial 0.8 0.5 - 1.6 mmol/L 02/22/2025 9:06 PM EDT [facility] Body Temperature 37.0 Celsius 02/22/2025 9:06 PM T [facility] pH, Temp Corrected, Arterial 7.45(H) 7.31 - 7.42 02/22/2025 9:06 PM EDT [facility] pCO2, Temp Corrected, Arterial 37 35 - 48 mm Hg 02/22/2025 9:06 PM EDT [facility] pO2, Temp Corrected, Arterial 86 >80 mm Hg 02/22/2025 9:06 PM EDT [facility] Readers' Advisory Service Librarian ID Slim Morton 02/22/2025 9:06 PM T [facility] Blood, Arterial Whole blood specimen / Unknown 02/22/2025 9:05 PM EDT 02/22/2025 9:06 PM EDT Luda Ralph MD LAB POINT OF CARE TE ST DOCKED DEVICE UNSOLICITED RESULTS Final Result Performing Organization Address [facility] Co de Phone Number [facility] [address] [place] [address] * Blood Culture (Aerobic/Anaerobet Set) (02/22/2025 8:55 PM EDT) Culture No growth at day 5 02/27/2025 10:01 PM EDT [facility] Blood Structure of right hand / Unknown Venipuncture / Unknown 02/22/2025 8:55 PM EDT 02/22/2025 9:29 PM EDT Narrative [facility] - 02/27/2025 10:01 PM EDT Low blood volume submitted, results may be compromised us Luda Morton MD LAB MICROBIOLOGY - GENERAL ORDERABLES Final Result Performing Organization Address [facility] Co de Phone Number [facility] [address] [place] [address] * Ionized calcium, serum (02/22/2025 8:36 PM EDT) Ionized Calcium, Serum 4.8 4.6 - 5.3 mg/dL LAB HEMATOLOGY METHOD 02/22/2025 9:42 PM EDT [facility] Blood Venous blood specimen / Unknown Venipuncture / Unknown 02/22/2025 8:36 PM EDT 02/22/2025 8:53 PM EDT us Bobby Parra MD LAB BLOOD ORDERABLES Final R esult Performing Organization Address City/[facility]/ZIP Co de Phone Number [facility] [address] [place] [address] * (ABNORMAL) CBC W/O Differential (02/22/2025 8:36 PM EDT) WBC Count 7.98 3.70 - 10.30 10*3/uL LAB HEMATOLOGY METHOD 02/22/2025 8:44 PM EDT [facility] RBC Count 3.52(L) 3.90 - 5.20 10*6/uL LAB HEMATOLOGY METHOD 02/22/2025 8:44 PM EDT [facility] HGB 9.2(L) 11.2 - 15.7 g/dL LAB HEMATOLOGY METHOD 02/22/2025 8:44 PM EDT [facility] HCT 28.5(L) 34.0 - 45.0 % LAB HEMATOLOGY METHOD 02/22/2025 8:44 PM EDT [facility] Platelet Count 329 155 - 369 10*3/uL LAB HEMATOLOGY METHOD 02/22/2025 8:44 PM EDT [facility] MCV 81 79 - 98 fL LAB HEMATOLOGY METHOD 02/22/2025 8:44 PM EDT [facility] MCH 26.1 26.0 - 32.0 pg LAB HEMATOLOGY METHOD 02/22/2025 8:44 PM EDT [facility] MCHC 32.3 30.7 - 35.5 g/dL LAB HEMATOLOGY METHOD 02/22/2025 8:44 PM EDT [facility] RDW 14.6(H) 11.5 - 14.5 % LAB HEMATOLOGY METHOD 02/22/2025 8:44 PM EDT [facility] MPV 9.5 8.8 - 12.5 fL LAB HEMATOLOGY METHOD 02/22/2025 8:44 PM EDT [facility] nRBC 0.0 <=0.0 per 100 WBCs LAB HEMATOLOGY METHOD 02/22/2025 8:44 PM EDT [facility] Blood Venous blood specimen / Unknown Venipuncture / Unknown 02/22/2025 8:36 PM EDT 02/22/2025 8:40 PM EDT us Bobby Parra MD LAB BLOOD ORDERABLES Final R esult [facility] [address] [place] [address] * (ABNORMAL) Blood gas, venous (02/22/2025 8:13 PM EDT) pH, Venous 7.33 7.32 - 7.43 LAB HEMATOLOGY METHOD 02/22/2025 8:17 PM EDT [facility] pCO2, Venous 49 37 - 52 mmHg LAB HEMATOLOGY METHOD 02/22/2025 8:17 PM EDT [facility] pO2, Venous 27 25 - 40 mmHg LAB HEMATOLOGY METHOD 02/22/2025 8:17 PM EDT [facility] SO2, Measured, Venous 49(L) 65 - 80 % LAB HEMATOLOGY METHOD 02/22/2025 8:17 PM EDT [facility] Base Excess, Venous -0.1 -2.0 - 3.0 mmol/L LAB HEMATOLOGY METHOD 02/22/2025 8:17 PM EDT [facility] Bicarbonate, Calculated, Venous 26 22 - 26 mmol/L LAB HEMATOLOGY METHOD 02/22/2025 8:17 PM EDT [facility] Hematocrit, Whole Blood 27.0(L) 34.0 - 45.0 % LAB HEMATOLOGY METHOD 02/22/2025 8:17 PM EDT [facility] Sodium, Whole Blood 128(L) 136 - 145 mmol/L LAB HEMATOLOGY METHOD 02/22/2025 8:17 PM EDT [facility] Potassium, Whole Blood 5.3(H) 3.6 - 4.9 mmol/L LAB HEMATOLOGY METHOD 02/22/2025 8:17 PM EDT [facility] Chloride, Whole Blood 96(L) 97 - 107 mmol/L LAB HEMATOLOGY METHOD 02/22/2025 8:17 PM EDT [facility] Glucose, Whole Blood 106(H) 74 - 99 mg/dL LAB HEMATOLOGY METHOD 02/22/2025 8:17 PM EDT [facility] Lactate, Venous, Whole Blood 1.0 0.5 - 2.2 mmol/L LAB HEMATOLOGY METHOD 02/22/2025 8:17 PM EDT [facility] Ionized Calcium, Whole Blood 4.3(L) 4.6 - 5.1 mg/dL LAB HEMATOLOGY METHOD 02/22/2025 8:17 PM EDT [facility] Blood Venous blood specimen / Unknown Venipuncture / Unknown 02/22/2025 8:13 PM EDT 02/22/2025 8:16 PM EDT us Luda Morton MD LAB BLOOD ORDERABLES Final Result [facility] [address] [place] [address] * EKG now - STAT (adult) (02/22/2025 8:10 PM EDT) EKG DIAGNOSIS CLASS Abnormal MUSE ECG Ventricular Rate 74 BPM MUSE ECG Atrial Rate 74 BPM MUSE ECG [place] Interval 200 ms MUSE ECG QRSD Interval 136 ms MUSE ECG QT Interval 434 ms MUSE ECG QTC Interval 481 ms MUSE ECG P [place] 59 degrees MUSE ECG R [place] -84 degrees MUSE ECG T Wave [place] 48 degrees MUSE ECG Diagnosis Normal sinus rhythm MUSE ECG Diagnosis Left axis deviation MUSE ECG Diagnosis Right bundle branch block MUSE ECG Diagnosis Abnormal ECG MUSE ECG Diagnosis Compared to last ECG MUSE ECG Diagnosis No significant change was found MUSE ECG Diagnosis Confirmed by Carson Multani ([id number]) on 02/23/2025 10:45:41 AM MUSE ECG 02/22/2025 [...] Per this written report. Drafted by Jin Yoedr MD on 02/22/2025 7:44 PM Final report signed by Jin Yoder MD on 02/22/2025 7:46 PM us Luda Morton MD IMG XR PROCEDURES Final Res ult * (ABNORMAL) Hemoglobin A1c (02/22/2025 6:41 PM EDT) Hemoglobin A1c 9.2(H) <5.7 % 02/23/2025 1:40 PM EDT [facility] Blood Venous blood specimen / Unknown Venipuncture / Unknown 02/22/2025 6:41 PM EDT 02/22/2025 6:47 PM EDT Narrative [facility] - 02/23/2025 1:40 PM EDT HA1C Interpretive Data: Diagnosis of Diabetes: Diabetic > or = 6.5% Pre-diabetic 5.7 to 6.4% Non-diabetic < or = 5.6% Glycemic Targets for Type I and Type II Diabetics: Non- Adults <7.0% Adults <6.0% Children and Adolescents <7.5% Source: [place] [employer]. Standards of medical care in diabetes,2017. Diabetes Care.2017:40 (suppl 1):S1-S135. Bobby Parra MD LAB BLOOD ORDERABLES Final R esult Performing Organization Address City/[facility]/ZIP Co de Phone Number [facility] [address] [place] [address] * (ABNORMAL) BNP (02/22/2025 6:41 PM EDT) N-Terminal, PROBNP, Plasma 1,679(H) 0 - 899 pg/mL 02/22/2025 8:39 PM EDT [facility] Blood Venous blood specimen / Unknown Venipuncture / Unknown 02/22/2025 6:41 PM EDT 02/22/2025 6:47 PM EDT Luda Morton MD LAB BLOOD ORDERABLES Final Result Performing Organization Address [facility]/[place] [address] * Free T4, Plasma (02/22/2025 6:41 PM EDT) Free T4, Plasma 1.3 0.8 - 1.7 ng/dL 02/22/2025 7:24 PM EDT [facility] Blood Venous blood specimen / Unknown Venipuncture / Unknown 02/22/2025 6:41 PM EDT 02/22/2025 6:47 PM EDT Luda Morton MD LAB BLOOD ORDERABLES Final Result Performing Organization Address City/[facility]/ZIP Co de Phone Number [facility] [address] [place] [address] * Thyroid Stimulating Hormone, Plasma (02/22/2025 6:41 PM EDT) Pathologist [facility] Thyroid Stimulating Hormone, Plasma 1.03 0.40 - 4.20 uIU/mL 02/22/2025 7:24 PM EDT [facility] Blood Venous blood specimen / Unknown Venipuncture / Unknown 02/22/2025 6:41 PM EDT 02/22/2025 6:47 PM EDT Luda Morton MD LAB BLOOD ORDERABLES Final Result Performing Organization Address [facility]/ZIP Co de Phone Number [facility] [address] [place] [address] * Ethyl Alcohol Plasma (02/22/2025 6:41 PM EDT) [facility] Ethanol Plasma <10 <10 mg/dL 02/22/2025 8:13 PM EDT [facility] Blood Venous blood specimen / Unknown Venipuncture / Unknown 02/22/2025 6:41 PM EDT 02/22/2025 8:00 PM EDT Narrative [facility] - 02/22/2025 8:13 PM EDT Enzymatic Assay: Performed on [employer]ector [employer]uf[employer]. Luda Morton MD LAB BLOOD ORDERABLES Final Result Performing Organization Address City/[facility]/ZIP Co de Phone Number [facility] [address] [place] [address] * (ABNORMAL) CBC w/diff (02/22/2025 6:41 PM EDT) Pathologist [facility] WBC Count 9.69 3.70 - 10.30 10*3/uL LAB HEMATOLOGY METHOD 02/22/2025 6:54 PM EDT [facility] RBC Count 3.62(L) 3.90 - 5.20 10*6/uL LAB HEMATOLOGY METHOD 02/22/2025 6:54 PM EDT [facility] HGB 9.7(L) 11.2 - 15.7 g/dL LAB HEMATOLOGY METHOD 02/22/2025 6:54 PM EDT [facility] HCT 29.8(L) 34.0 - 45.0 % LAB HEMATOLOGY METHOD 02/22/2025 6:54 PM EDT [facility] Platelet Count 306 155 - 369 10*3/uL LAB HEMATOLOGY METHOD 02/22/2025 6:54 PM EDT [facility] MCV 82 79 - 98 fL LAB HEMATOLOGY METHOD 02/22/2025 6:54 PM EDT [facility] MCH 26.8 26.0 - 32.0 pg LAB HEMATOLOGY METHOD 02/22/2025 6:54 PM EDT [facility] MCHC 32.6 30.7 - 35.5 g/dL LAB HEMATOLOGY METHOD 02/22/2025 6:54 PM EDT [facility] RDW 14.6(H) 11.5 - 14.5 % LAB HEMATOLOGY METHOD 02/22/2025 6:54 PM EDT [facility] MPV 9.4 8.8 - 12.5 fL LAB HEMATOLOGY METHOD 02/22/2025 6:54 PM EDT [facility] nRBC 0.0 <=0.0 per 100 WBCs LAB HEMATOLOGY METHOD 02/22/2025 6:54 PM EDT [facility] Differential Type Automated LAB HEMATOLOGY METHOD 02/22/2025 6:54 PM EDT [facility] Neutrophils % 69 % LAB HEMATOLOGY METHOD 02/22/2025 6:54 PM EDT [facility] Lymphocytes % 13 % LAB HEMATOLOGY METHOD 02/22/2025 6:54 PM EDT [facility] Monocytes % 13 % LAB HEMATOLOGY METHOD 02/22/2025 6:54 PM EDT [facility] Eosinophils % 4 % LAB HEMATOLOGY METHOD 02/22/2025 6:54 PM EDT [facility] Basophils % 0 % LAB HEMATOLOGY METHOD 02/22/2025 6:54 PM EDT [facility] Immature Granulocytes % 1 % LAB HEMATOLOGY METHOD 02/22/2025 6:54 PM EDT [facility] Neutrophils Absolute 6.66(H) 1.60 - 6.10 10*3/uL LAB HEMATOLOGY METHOD 02/22/2025 6:54 PM EDT [facility] Lymphocytes Absolute 1.29 1.20 - 3.90 10*3/uL LAB HEMATOLOGY METHOD 02/22/2025 6:54 PM EDT [facility] Monocytes Absolute 1.27(H) 0.30 - 0.90 10*3/uL LAB HEMATOLOGY METHOD 02/22/2025 6:54 PM EDT [facility] Eosinophils Absolute 0.38 0.00 - 0.50 10*3/uL LAB HEMATOLOGY METHOD 02/22/2025 6:54 PM EDT [facility] Basophils Absolute 0.03 0.00 - 0.10 10*3/uL LAB HEMATOLOGY METHOD 02/22/2025 6:54 PM EDT [facility] Immature Granulocytes Absolute 0.06 0.00 - 0.06 10*3/uL LAB HEMATOLOGY METHOD 02/22/2025 6:54 PM EDT [facility] Blood Venous blood specimen / Unknown Venipuncture / Unknown 02/22/2025 6:41 PM EDT 02/22/2025 6:47 PM EDT Narrative [facility] - 02/22/2025 6:54 PM EDT Therapeutic decision making should be based on absolute values, rather than percentages. Luda Morton MD LAB BLOOD ORDERABLES Final Result [facility] [address] [place] [address] * (ABNORMAL) CMP (02/22/2025 6:41 PM EDT) Glucose, Plasma 144(H) 74 - 99 mg/dL 02/22/2025 7:24 PM EDT [facility] BUN, Plasma 42(H) 8 - 23 mg/dL 02/22/2025 7:24 PM EDT [facility] Creatinine, Plasma 2.39(H) 0.60 - 1.10 mg/dL 02/22/2025 7:24 PM EDT [facility] BUN/Creatinine Ratio 18 02/22/2025 7:24 PM EDT [facility] Sodium, Plasma 125(L) 136 - 145 mmol/L 02/22/2025 7:24 PM EDT [facility] Potassium, Plasma 4.6 3.6 - 4.9 mmol/L 02/22/2025 7:24 PM EDT [facility] Chloride, Plasma 89(L) 97 - 107 mmol/L 02/22/2025 7:24 PM EDT [facility] CO2, Plasma 26 22 - 29 mmol/L 02/22/2025 7:24 PM EDT [facility] Anion Gap 10 6 - 16 mmol/L 02/22/2025 7:24 PM EDT [facility] Total Calcium, Plasma 9.0 8.9 - 10.2 mg/dL 02/22/2025 7:24 PM EDT [facility] Total Protein 7.3 6.3 - 7.9 g/dL 02/22/2025 7:24 PM EDT [facility] Albumin, Plasma 3.6 3.5 - 5.2 g/dL 02/22/2025 7:24 PM EDT [facility] AST, Plasma 13 10 - 35 U/L 02/22/2025 7:24 PM EDT [facility] ALT, Plasma 19 10 - 35 U/L 02/22/2025 7:24 PM EDT [facility] Alkaline Phosphatase, Plasma 144(H) 46 - 142 U/L 02/22/2025 7:24 PM EDT [facility] Total Bilirubin, Plasma <0.2(L) 0.2 - 1.1 mg/dL 02/22/2025 7:24 PM EDT [facility] eGFRcr 22.0 mL/min/1.7 3m*2 02/22/2025 7:24 PM EDT [facility] Comment:Reported eGFRcr in m L/min/1.73m2 is based the CKD-EPI 2020 equation that does not use a race coefficient. Blood Venous blood specimen / Unknown Venipuncture / Unknown 02/22/2025 6:41 PM EDT 02/22/2025 6:47 PM EDT us Luda Morton MD LAB BLOOD ORDERABLES Final Result [facility] [address] [place] [address] * (ABNORMAL) POCT venous blood gas gem (02/22/2025 6:37 PM EDT) pH, Venous 7.28(L) 7.32 - 7.43 02/22/2025 6:38 PM EDT [facility] pCO2, Venous 60(HH) 37 - 52 mm Hg 02/22/2025 6:38 PM EDT [facility] pO2, Venous 41(H) 25 - 40 mm Hg 02/22/2025 6:38 PM EDT [facility] SO2, Venous 72 65 - 80 % 02/22/2025 6:38 PM EDT [facility] Base Excess/Deficit, Venous 0.8 -2 - 3 mmol/L 02/22/2025 6:38 PM EDT [facility] HCO3, Venous 28.2(H) 22 - 26 mmol/L 02/22/2025 6:38 PM EDT [facility] Hemoglobin, Venous 9.2(L) 11.2 - 15.7 g/dL 02/22/2025 6:38 PM EDT [facility] Hematocrit, Venous 28.0(L) 34.0 - 45.0 % 02/22/2025 6:38 PM EDT [facility] Sodium, Venous 126(L) 136 - 145 mmol/L 02/22/2025 6:38 PM EDT [facility] Potassium, Venous 4.6 3.6 - 4.9 mmol/L 02/22/2025 6:38 PM EDT [facility] Comment:Hemolyzed, result ma y be falsely increased. POCT Chloride, Venous 94(L) 97 - 107 mmol/L 02/22/2025 6:38 PM [facility]T [facility] Glucose, Venous 139(H) 74 - 99 mg/dL 02/22/2025 6:38 PM EDT [facility] Ionized Calcium, Venous 4.9 4.6 - 5.1 mg/dL 02/22/2025 6:38 PM EDT [facility] Lactate, Venous 0.6 0.5 - 2.2 mmol/L 02/22/2025 6:38 PM EDT [facility] Body Temperature 37.0 Celsius 02/22/2025 6:38 PM EDT [facility] pH, Temp Corrected, Venous 7.28(L) 7.32 - 7.43 02/22/2025 6:38 PM EDT [facility] pCO2, Temp Corrected, Venous 60(HH) 37 - 52 mm Hg 02/22/2025 6:38 PM EDT [facility] pO2, Temp Corrected, Venous 41(H) 25 - 40 mm Hg 02/22/2025 6:38 PM EDT [facility] Readers' Advisory Service Librarian ID Joao Jackson 02/22/2025 6:38 PM [facility]T [facility] Blood, Venous Whole blood specimen / Unknown 02/22/2025 6:37 PM EDT 02/22/2025 6:38 PM EDT Generic Provider Poct LAB POINT OF CARE TEST DOCKED DEVICE UNSOLICITED RESULTS Final Result Performing Organization Address City/[facility]/ZIP Co de Phone Number [facility] [address] [place] [address] * (ABNORMAL) POCT glucose meter (02/22/2025 6:17 PM EDT) [facility] POCT Glucose 150(H) 74 - 99 mg/dL [...] 02/22/2025 6:19 PM EDT [facility] Readers' Advisory Service Librarian ID Tracy Vasques 02/22/2025 6:19 PM EDT [facility] Device ID [id number] 02/22/2025 6:19 PM EDT [facility] Specimen Type POC Capillary 02/22/2025 6:19 PM EDT HEALTH[facility]ARE LAB Blood Capillary blood specimen / Unknown 02/22/2025 6:17 PM EDT 02/22/2025 6:19 PM EDT Generic Provider Poct LAB POINT OF CARE TEST DOCKED DEVICE UNSOLICITED RESULTS Final Result [facility] [address] [place] [id number] * INTUBATION (02/22/2025 6:13 PM EDT) Narrative [...] encounter Visit Diagnoses Diagnosis Sepsis (CMS/HCC)- Primary [place] coma scale total score 9-12, at arrival [...] Tue02/22/25 at 2028, Until Tue03/02/25 at 1304, Administer over 15 Minutes, Routine, low blood sugar BG 51-89 mg/dL dextrose 10 % (D10W) bolus 250 mL 250 mL, Intravenous, Every 15 min PRN, Starting on Tue02/22/25 at 2028, Until Tue03/02/25 at 1304, Administer over 15 [...] Every 8 hours scheduled, First dose on 02/23/25 at 0215, Until Discontinued, Routine Given 03/02/2025 [...] Every 6 hours scheduled, First dose on Tue02/23/25 at 0215, Until Discontinued, Routine Given 02/24/2025 [...] Oral, Every 6 hours PRN, Starting on Tu02/26/25 at 1128, Until 03/02/25 at 1304, Routine, nausea, vomiting Given 02/26/2025 11:34 AM EDT 4 mg oxyCODONE (Roxicodone) immediate release tablet 5 mg 5 mg, Nasogastric, Every 6 hours PRN, Starting on 02/23/25 at 1449, Until 03/02/25 at 1304, Routine, [...] 17 g, Oral, Daily, First dose on 7/5/25 at 1545, Until Discontinued, Routine Given 02/24/2025 [...] Routine 1100 (Given - Provider: Gayle Light RN)1755 (Given - Provider: Gayle Light RN - Comment: pt asleep)2044 (Given - Provider: Gerry Ambriz) 0851 (Given - Provider: Yves Roberts)1610 (Given - Provider: Gayle Light, JIMI)2109 (Given [...] Routine 1836 (New Bag - Provider: Gayle Light, JIMI) 0832 (New Bag - Provider: Gayle Light [...] Gerry Ambriz)1333 (Given - Provider: Gayle Light RN)2109 (Given - Provider: Aleyda Holley, JIMI) 0544 [...] Provider: Gayle Light, JIMI)1754 (Given - Provider: Gyale Light, JIMI) 0852 (Given - Provider: Yves Roberts)1330 (Given - Provider: Gayle Light, JIMI)1835 (Given - Provider: Gayle Light, JIMI) 0822 (Given - Provider: Gayle Light RN)1230 (Canceled Entry - Provider: Automatic Discharge Provider - Comment: Automatically canceled at discontinue of medication order) insulin lispro (Admelog) injection - Correction - Nighttime Dose 0-3 Units, Subcutaneous, 2 times nightly (2100 & 030), First dose on 02/24/25 at 2100, Until Discontinued, Routine 215 (Not Given - Provider: Gerry Ambriz - Reason: Order parameters not met)2106 (Not Given - Provider: Gerry Ambriz - Reason: Order parameters not met) 246 (Not Given - Provider: Gerry Ambriz - Reason: Order parameters not met)2110 (Not Given - Provider: Aleyda Holley RN - Reason: Order parameters not met) 311 [...] Roberts)2109 (Given - Provider: Aleyda Holley RN) 0824 (Given - Provider: Gayle Light, JIMI) [...] Yves Roberts)1610 (Given - Provider: Gayle Light, RN) 0600 (Given - Provider: Aleyda Holley RN) [...] documented as of this encounter Care Teams Pumper Gauger Apprentice Relationship Specialty Start Date End Date Vignesh Pickens MD [address] [place] [address] PCP - General 12/31/24 Cayla Erazo APRN, DNP [id number] [place] [id number] Nurse Practitioner Urology 12/20/24 documented as of this encounter
--- OUTSIDE RECORDS SUMMARY | 2025-02-28 08:15 | XMS_ITS | Encounter Summary ---
Author Organization [facility] Address [address] [place] [address] Care Team Providers Care Cold Mill Inspector Name Role Phone Cayla Erazo APRN, DNP Unavailable Vignesh Pickens MD Primary Care Provider [phone] Reason for Visit * Auth/Cert (Routine) Specialty Diagnoses / Procedures Referred By Contac t Referred To Contact Diagnoses Sepsis (CMS/HCC) UTI, CKD, Hyponatremia, COPD exacerbation Bobby Parra MD [address] [place] [phone] Phone: tel: fax: PAV A Inpatient [address] [place] [phone] Referral ID Status Reason Start Date Expiration Date Visits Re quested Visits Authorized [id number] 1 1 Encounter Details Date Type Department Care Team (Latest Contact Info) Description 02/28/2025 8:15 AM EDT Office Visit [facility] [address] [place] [address] Bert Lim, DMD [address] [place] [address] Caries (Primary Dx) Social History Tobacco Use [...] drink first t rodríguez in the morning (EYE-FEATHER CUTTING MACHINE FEEDER) to steady your nerves or to get rid of a hangover? 0 08/15/2024 CAGE Questionnaire Score 0 024 Utilities Answer Date Recorded In the past 12 months has th [employer], gas, oil, or water company threatened to [...] Diagnosis: Same - Resident/Attending: Bert Lim DMD/Dr. Summres - Procedure: EXT #15 - Estimated Blood [...] to prescribing narcotic medication. Bert Lim DMD [facility] splicer machine operator PGY-1 Pager #: [phone] Cosigned by Froylan Summers DMD at 03/01/2025 8:09 AM EDT Associated attestation - Froylan Summers DMD - 03/01/2025 8:09 AM EDT I was present during all critical and madden portions of the procedure(s) and immediately available [facility] services the entire duration. See resident note for details. documented in this encounter Plan of Treatment Upcoming Encounters Date Type Department Care Team (Late st Contact Info) Description 03/07/2025 10:00 AM EDT Office Visit [facility]rology [address] [place] [address] Doug Chapman MD [address] [place] [address] 03/27/2025 10:30 AM EDT Appointment [facility] Ultrasound [address] [place] [address] 03/27/2025 11:50 AM EDT Clinical Support Medical Office Building Lab [address] [place] [address] 03/27/2025 1:00 PM EDT Office Visit [facility] [address] [facility], [address] [place] [address] Cayla Erazo, DISTRIBUTION COLLECTION OPERATOR, DNP [address] [place] [address] 05/16/2025 8:00 AM EDT Office Visit [facility] [place] [address] [facility], [address] [place] [address] Karly Gracia MD [address] [place] [address] 06/07/2025 1:00 PM EDT Office Visit [facility] [address] [place] [address] Tom Iraheta MD [address] [place] [address] documented as of this encounter [...] documented as of this encounter Care Teams Cold Mill Inspector Relationship Specialty Start Date End Date Vignseh Pickens MD [address] [place] [address] PCP - General 12/31/24 Cayla Erazo APRN, FREDERICK [address] [facility] [address] [place] [address] Nurse Practitioner Urology 12/20/24 documented as of this encounter
[2025-03-04] VITALS (12 sets, daily range): BP systolic 133–179; BP diastolic 79–118; PULSE 77–98; RESP 12–21; TEMP 36.7–36.9; O2SAT 93–100; BMI 38.6
--- NOTE | 2025-03-04 05:40 | XR_ITS ---
PROCEDURE INFORMATION: Exam: XR Chest Exam date and time: 03/04/2025 5:59 AM Age: 64 years old Clinical indication: Other: AMS; Additional info: Altered mental status TECHNIQUE: Imaging protocol: Radiologic exam of the chest. Views: 1 view. COMPARISON: CR XR CHEST PORTABLE 02/22/2025 12:54 PM FINDINGS: Lungs: There is left basilar airspace disease somewhat limited in assessment due to cardiomegaly. Pleural spaces: No pleural effusion. No pneumothorax. Heart/Mediastinum: The heart is ooji-pw-izdfttnexw enlarged. Bones/joints: There are some degenerative changes of the spine. IMPRESSION: 1. Limited portable exam demonstrates possible left basilar/retrocardiac pneumonia. 2. A followup PA and lateral radiograph is recommended when the patient is clinically able.
--- NOTE | 2025-03-04 05:41 | CT_ITS ---
PROCEDURE INFORMATION: Exam: CT Head Without Contrast Exam date and time: 03/04/2025 6:08 AM Age: 64 years old Clinical indication: Other: Altered mental status no focal deficit TECHNIQUE: Imaging protocol: Computed tomography of the head without contrast. Radiation optimization: All CT scans at this facility use at least one of these dose optimization techniques: automated exposure control; mA and/or kV adjustment per patient size (includes targeted exams where dose is matched to clinical indication); or iterative reconstruction. COMPARISON: CT HEAD/BRAIN WO CON 02/22/2025 12:46 PM FINDINGS: Brain: There are stable regions of encephalomalacia in the right cerebral hemisphere involving the frontal, parietal and occipital lobes. The brain also demonstrates diffuse volume loss. There is white matter hypodensity most consistent with chronic small vessel ischemic change. There are small foci of low attenuation in the basal ganglia bilaterally related to chronic lacunar infarctions. Cerebral ventricles: The ventricles and CSF spaces are proportionately enlarged. Paranasal sinuses: Visualized sinuses are unremarkable. No fluid levels. Mastoid air cells: Visualized mastoid air cells are well aerated. Bones: No acute fracture. Soft tissues: Unremarkable. IMPRESSION: 1. 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 2. There is also generalized atrophy and the sequela of chronic small vessel ischemia. 3. There is no acute intracranial abnormality.
--- NOTE | 2025-03-04 05:44 | ECG_ITS ---
APPROVED REPORT Exam: Resting ECG HR:83 bpm ECG Measurements Heart Rate 83 AXES WV 202 P 44 QRSd 140 QRS -89 QT 434 T 27 QTc 474 Conclusion SINUS RHYTHM INDETERMINATE AXIS RIGHT BUNDLE BRANCH BLOCK [120+ ms QRS DURATION, UPRIGHT V1, 40+ ms S IN I/aVL/V4/V5/V6] No STEMI Electronically signed by : TABITHA VERGARA, 03/04/2025 23:02:59
[2025-03-04 05:57] LABS: Hematocrit 33.7 % (37.0-47.0); Hemoglobin 10.6 g/dL (12.2-16.2); Immature Granulocytes % 0.6 %; Mean Corpuscular HGB Conc 31.5 g/dL (31.8-35.4); Mean Corpuscular Hemoglobin 26.0 pg (27.0-31.2); Mean Corpuscular Volume 82.6 fl (81-99); Nucleated Red Blood Cells % 0 %; Platelet Count 272 K/mm3 (142-424); Red Blood Count 4.08 M/mm3 (4.20-5.40); Red Cell Distribution Width-SD 46.8 fL; White Blood Count 6.7 K/mm3 (4.8-10.8)
--- OUTSIDE RECORDS SUMMARY | 2025-03-04 05:59 | XMS_ITS | Encounter Summary ---
Author Organization [facility] Address [address] 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 [place] [address] 03/27/2025 11:50 AM EDT Clinical Support Medical Office Building Lab [address] [place] [address] 03/27/2025 1:00 PM EDT Office Visit Medical Office Building Urology [address] [facility], [address] [place] [address] Cayla Erazo, LEAD ORACLE DEVELOPER, DNP [address] [place] [address] 05/16/2025 8:00 AM EDT Office Visit [facility] [address] [facility], [address] [place] [address] Karly Gracia MD [address] [place] [address] 06/07/2025 1:00 PM EDT Office Visit [facility] [address] [place] [address] Tom Iraheta MD [address] [place] [address] Scheduled Orders Name Type Priority Associated Diagnoses Orde r Schedule Urine Culture Microbiology Routine Urinary incontinence without sensory awareness Expected: 01/17/2025 (Approximate), Expires: 07/20/2026 documented as of this encounter Visit Diagnoses [...] documented as of this encounter Care Teams Timber Management Professor Relationship Specialty Start Date End Date Vignesh Pickens MD [address] [place] [address] PCP - General 12/31/24 Cayla Erazo APRN, FREDERICK [address] [place] [address] Nurse Practitioner Urology 12/20/24 documented as of this encounter
--- OUTSIDE RECORDS SUMMARY | 2025-03-04 05:59 | XMS_ITS | Encounter Summary ---
Author Organization [facility] Address [address] [place] [address] Care Team Providers Care Student Outreach Coordinator Name Role Phone Cayla Erazo APRN, DNP Unavailable [phone] Vignesh Pickens MD Primary Care Provider [phone] Encounter Details Date Type Department Care Team [...] drink first t rodríguez in the morning (EYE-TOPOLOGY PROFESSOR) to steady your nerves or to get [...] [address] [place] [address] Doug Chapman MD [address] [facility] [address] [place] [address] 03/27/2025 10:30 AM EDT Appointment [facility] Ultrasound [address]nd [place] [address] 03/27/2025 11:50 AM EDT Clinical Support Medical Office Building Lab [address] [place] [address] 03/27/2025 1:00 PM EDT Office Visit Medical Office Building Urology [address] [facility], [address] [place] [address] Cayla Erazo, RETAIL PHARMACY MANAGER, DNP [id number] [place] [address] 05/16/2025 8:00 AM EDT Office Visit [facility] [place] [address] [facility], [address] [place] [address] Karly Gracia MD [address] [place] [address] 06/07/2025 1:00 PM EDT Office Visit [facility] [address] [place] [address] Tom Iraheta MD [address] [place] [address] documented as of this encounter [...] documented as of this encounter Care Teams Student Outreach Coordinator Relationship Specialty Start Date End Date Vignesh Pickens MD [address] [place] [address] PCP - General 12/31/24 Cayla Erazo APRN, DNP [address] [place] [address] Nurse Practitioner Urology 12/20/24 documented as of this encounter
--- OUTSIDE RECORDS SUMMARY | 2025-03-04 05:59 | XMS_ITS | Clinical Summary ---
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) 70199430 (SNOMED CT) 10/25 Active 10/25 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 Benign hypertension Presence of left artificial knee joint Z96.652 (ICD-10-CM ) 10/25 Active 10/25 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 Presence of left artificial knee joint Hx of MRSA infection 582823850 (SNOMED CT) 10/25 Active 10/25 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 H/O: infectious disease Hx of malignant neoplasm of breast 827823481 (SNOMED CT) 03/02 Resolved 03/02 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 History of malignant neoplasm of breast Cellulitis of left leg 224658653 (SNOMED CT) 03/02 Resolved 03/02 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 Cellulitis of lower limb alf (current) use of suppressive antibiotics Z79.2 (ICD-10-CM ) 01/14 Inactive 01/14 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 terminal carman (current) use of antibiotics Anemia in chronic diseases(docu ment disease) D63.8 (ICD-10-CM ) 01/14 Active 01/14 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 Anemia in other chronic diseases classified elsewhere Chronic respiratory failure with hypoxia 91810391 (SNOMED CT) 01/14 Active 01/14 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 Acute respiratory failure COPD 86083255 (SNOMED CT) 01/14 Active 01/14 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 Chronic obstructive pulmonary disease DM Type II E11.9 (ICD-10-CM ) 01/14 Inactive 01/14 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 Type 2 diabetes mellitus without complications Benign Essential Hypertension 38495849 (SNOMED CT) 01/14 Removed 01/14 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 Benign hypertension Acquired absence of left knee joint 322542053 (SNOMED CT) 03/02 Resolved 03/02 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 History of operative procedure on knee Obesity due to excess calories E66.09 (ICD-10-CM ) 03/02 Resolved 03/02 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 Other obesity due to excess calories alf (current) use of anticoagulant s Z79.01 (ICD-10-CM ) 03/02 Resolved 03/02 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 alf (current) use of anticoagulants Staph epi infection B95.7 (ICD-10-CM ) 03/02 Resolved 03/02 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 Other staphylococcus as the cause of diseases classified elsewhere Diarrhea 87773782 (SNOMED CT) 09/28 Resolved 09/28 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 Diarrhea Staph hominis infection B95.7 (ICD-10-CM ) 09/28 Resolved 09/28 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 Other staphylococcus as the cause of diseases classified elsewhere Staph hominis infection B95.7 (ICD-10-CM ) 09/28 Removed 09/28 Arie Dougherty MD Other staphylococcus as the cause of diseases classified elsewhere Diarrhea 81414373 (SNOMED CT) 09/28 Removed 09/28 Arie Dougherty MD Diarrhea Acquired absence of left knee joint 494535841 (SNOMED CT) 03/02 Removed 03/02 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 History of operative procedure on knee Cellulitis of left leg 988182647 (SNOMED CT) 03/02 Removed 03/02 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 Cellulitis of lower limb Knee, left, subsequent encounter, infection/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 T84.54xD (ICD-10-CM ) 03/02 Active 03/02 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 Infection and inflammatory reaction due to internal left knee prosthesis, subsequent encounter Staph epi infection B95.7 (ICD-10-CM ) 03/02 Removed 03/02 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 Other staphylococcus as the cause of diseases classified elsewhere alf (current) use of anticoagulant s Z79.01 (ICD-10-CM ) 03/02 Removed 03/02 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 alf (current) use of anticoagulants Obesity due to excess calories E66.09 (ICD-10-CM ) 03/02 Removed 03/02 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 Other obesity due to excess calories Hx of malignant neoplasm of breast 695660644 (SNOMED CT) 03/02 Removed 03/02 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 History of malignant neoplasm of breast Medications Medication Instructions Start Date Stop Date Generic Name NDC Provider DOXYCYCLINE MONOHYDRATE 100 MG CAPS Take 1 capsule by mouth twice a day 10/25 doxycycline monohydrate 61282818400 Arie Dougherty MD ceftriaxone recon soln 2GM IV Q24hrs [facility] 02/18 ceftriaxone recon soln Temi Norris Cubicin RF 800mg IV Q48hrs [facility] 02/18 daptomycin Temi Norris DOXYCYCLINE MONOHYDRATE 100 MG CAPS Take 1 capsule by mouth twice a day 02/03 doxycycline monohydrate 60114756567 Arie Dominguez RF 800mg IV Q48hrs [facility] 02/18 daptomycin Nubia Ervin ceftriaxone recon soln 2GM IV Q24hrs [facility] 02/18 ceftriaxone recon soln Nubiadeidre Ervin IPRATROPIUM-ALBUT MIKE 0.5-2.5 (3) MG/3ML SOLN 3 ml by mouth PRN 01/27 ipratropium-albut mike 05383728921 Nubia Minor Gaviscon 95-358 mg/15 mL suspension by mouth four times a day 30 mL aluminum hydrox-magnesium carb 63750822249 Nubia Minor IPRATROPIUM-ALBUT MIKE 0.5-2.5 (3) MG/3ML SOLN using nebulizer every six hours PRN ipratropium-albut mike 29099991680 Nubia Minor BASAGLAR KWIKPEN 100 UNIT/ML SOPN subcutaneously once a day insulin glargine 25936069243 Nubia Minor MUCUS RELIEF D 60-600 MG [id number] by mouth twice a day pseudoephedrine-g uaifenesin 37798614440 Nubia Minor VITAMIN B-12 100 MCG TABS by mouth once a day cyanocobalamin (vitamin b-12) 34607617741 Nubia Minor PERCOCET 5-325 MG TABS 1-2 tablet every four to six hours oxycodone-acetami nophen 28350054380 Nubia Minor BIOTIN 1000 MCG TABS by mouth once a day biotin 68840146072 Nubia Minor GABAPENTIN 800 MG TABS by mouth four times a day as needed gabapentin 46290175853 Nubia Minor ATORVASTATIN CALCIUM 40 MG TABS by mouth every morning Hold while on daptomycin atorvastatin 83862575683 Nubia Minor FERROUS SULFATE 325 (65 Fe) MG TABS by mouth once a day ferrous sulfate 59553983810 Nubia Minor VENLAFAXINE HCL 75 MG TABS by mouth twice a day venlafaxine 05069904269 Nubia Minor CITRACAL MAXIMUM 315-6.25 MG-MCG TABS by mouth twice a day calcium citrate-vitamin d3 28942612568 Nubia Poncho JANUMET XR 50-1000 MG [id number] by mouth twice a day sitagliptin phos-metformin 70344844197 Nubia Minor GNP HYDROCORTISONE/AL OE 1 % CREA Apply to skin twice a day as needed hydrocortisone acetate 60000775559 Nubia Minor MS CONTIN 15 MG CR-TABS by mouth twice a day morphine 63426117719 Nubia Minor OMEPRAZOLE 20 MG TBEC 2 tablet by mouth once a day omeprazole 62245543073 Nubia Minor DOXYCYCLINE HYCLATE 100 MG TABS Take 1 tablet by mouth twice a day 01/11 doxycycline hyclate 56384923220 Nubia Minor CARVEDILOL 12.5 MG TABS by mouth twice a day carvedilol 83693672729 Nubia Minor PROMETHAZINE HCL 25 MG TABS by mouth three times a day as needed promethazine 76106270476 Nubia Minor TIZANIDINE HCL 4 MG TABS by mouth three times a day as needed tizanidine 82720639413 Nubia Minor LACTULOSE 10 GM/15ML SOLN 30 ml by mouth as needed lactulose 18082853362 Nubia Minor COLACE 100 MG CAPS by mouth twice a day as needed docusate sodium 20104279508 Nubia Minor XARELTO TABLET 15 mg 15 mg Take 1 by mouth once a day XARELTO TABLET 15 mg 15 mg Nubia Minor ANASTROZOLE 1 MG TABS by mouth once a day anastrozole 97604436771 Nubia Minor ACETAMINOPHEN 500 MG TABS by mouth every six hours PRN acetaminophen 15506457224 Nubia Minor LOPERAMIDE HCL 2 MG CAPS by mouth once a day PRN loperamide 54707358971 Nubia Minor ASCORBIC ACID 500 MG TABS by mouth 0.5 tab am and 0.5 tab pm ascorbic acid (vitamin c) 34235723660 Nubia Minor BACLOFEN 10 MG TABS by mouth three times a day baclofen 04196363880 Nubia Minor BREO ELLIPTA 100-25 MCG/ACT AEPB every morning fluticasone furoate-vilantero l 08790512030 Nubia Minor BUMETANIDE 2 MG TABS by mouth twice a day bumetanide 15271939540 Nubia Minor CALCIUM 600 1500 (600 Ca) MG TABS by mouth twice a day calcium carbonate 97111826838 Nubia Minor D3 HIGH POTENCY 10 MCG (400 UNIT) TABS by mouth 2.5 units am and 2.5 units pm cholecalciferol (vitamin d3) 51530820214 Nubia Minor PLAVIX 75 MG TABS by mouth every morning clopidogrel 95249353148 Nubia Minor VITAMIN B-12 1000 MCG TABS by mouth every morning cyanocobalamin (vitamin b-12) 05284968253 Nubia Minor FLONASE ALLERGY RELIEF 50 MCG/ACT SUSP intranasally every morning fluticasone propionate 72400867213 Nubia Minor FOSAMAX 70 MG TABS by mouth once a week alendronate 09642083007 Nubia Minor GLIPIZIDE ER 2.5 MG [id number] by mouth every morning 0.5 tab glipizide 45030009796 Nubia Minor LANTUS SOLOSTAR 100 UNIT/ML SOPN 8 unit subcutaneously every night insulin glargine 70988145463 Nubia Minor IPRATROPIUM-ALBUT MIKE 0.5-2.5 (3) MG/3ML SOLN 3 ml by mouth PRN 01/27 ipratropium-albut mike 31308990233 Nubia Minor JARDIANCE 10 MG TABS by mouth every morning empagliflozin 60071923648 Nubia Minor MAGNESIUM OXIDE 400 MG TABS by mouth twice a day magnesium oxide 72219891278 Nubia Minor METFORMIN HCL 1000 MG TABS by mouth twice a day metformin 83134567981 Nubia Minor MULTI-VITAMIN HP/MINERALS CAPS by mouth once a day multivitamin,tx-m inerals 26933505679 Nubia Minor ONDANSETRON HCL 4 MG TABS by mouth twice a day PRN ondansetron hcl 74452752871 Nubia Minor PANTOPRAZOLE SODIUM 20 MG TBEC by mouth once a day pantoprazole 92772639351 Nubia Minor PREGABALIN 50 MG CAPS by mouth three times a day pregabalin 87479992461 Nubia Isaac SENNA 8.6 MG TABS by mouth 2 tabs PRN sennosides 71797384487 Nubia Isaac SPIRONOLACTONE 50 MG TABS by mouth once a day spironolactone 58276306501 Nubia Isaac TRAZODONE HCL 150 MG TABS by mouth once a day 2 tabs trazodone 40107047809 Nubia Isaac VALSARTAN 80 MG TABS by mouth twice a day valsartan 95329749904 Nubia Isaac VENLAFAXINE HCL ER 150 MG [id number] by mouth every morning venlafaxine 88435796456 Nubia Isaac VANCOMYCIN HCL SOLR 1gm IV q 12 x 6wks [facility] [phone] 10/05 VANCOMYCIN HCL SOLR 80862066019 Libby Cabello JIMI MS CONTIN 15 MG CR-TABS by mouth twice daily 01/11 MORPHINE SULFATE 54870207873 Arie Dougherty MD PERCOCET 5-325 MG TABS 1-2 tabs, every four to six hours, do not exceed 4000mg of acetaminophen per day 01/11 OXYCODONE-ACETAMI NOPHEN 67841598471 Arie Dougherty MD [facility] IRON 325 (65 Fe) MG TABS by mouth daily 01/11 FERROUS SULFATE 50590199084 Arie Dougherty MD COLACE 100 MG CAPS by mouth twice daily as needed 02/19 DOCUSATE SODIUM 84306174461 Arie Dougherty MD DOXYCYCLINE HYCLATE 100 MG TABS take 1 tab po BID 02/19 DOXYCYCLINE HYCLATE 31823793036 Arie Dougherty MD XARELTO TABLET Take one by mouth once daily. 01/11 RIVAROXABAN TABS 83609356517 Arie Dougherty MD COUMADIN 5 MG ORAL TABLET by mouth, AC dinner 10/17 WARFARIN SODIUM 56313378612 Arie Dougherty MD VANCOMYCIN HCL SOLR 1gm IV q 12 x 6wks [facility] [phone] 08/22 VANCOMYCIN HCL SOLR 06934257809 [facility] VANCOMYCIN HCL SOLR 750 mg IV q 12 x 6wks [facility] [phone] 03/31 VANCOMYCIN HCL SOLR 99514392622 [facility] VANCOMYCIN HCL SOLR 750 mg IV q 12 x 6wks [facility] [phone] 08/22 VANCOMYCIN HCL SOLR 56007626723 Daily Lewis RN VENLAFAXINE HCL 75 MG TABS by mouth twice daily 01/11 VENLAFAXINE HCL 36014622884 Kulwant P PROMETHAZINE HCL 25 MG TABS by mouth three times a day as needed 01/11 PROMETHAZINE HCL 80180596481 Kulwant P B-12 100 MCG TABS by mouth daily 09/29 CYANOCOBALAMIN 86910625931 Kulwant P JANUMET XR 50-1000 MG [id number] by mouth twice daily 01/11 SITAGLIPTIN-METFO RMIN HCL 34157271422 Kulwant P TIZANIDINE HCL 4 MG TABS by mouth three times a day as needed 01/11 TIZANIDINE HCL 07400243698 Kulwant P GABAPENTIN 800 MG TABS by mouth four times a day as needed 01/11 GABAPENTIN 20322650449 Kulwant P CARVEDILOL 12.5 MG TABS by mouth twice daily 01/11 CARVEDILOL 82766332786 Kulwant P ANASTROZOLE 1 MG TABS by mouth daily 01/11 ANASTROZOLE 41796731718 Kulwant P CITRACAL MAXIMUM 315-6.25 MG-MCG TABS by mouth twice daily 01/11 CALCIUM CITRATE-VITAMIN D 13964116459 Kulwant P [facility] OMEPRAZOLE 20 MG TBEC 2 tabs by mouth once daily 01/11 OMEPRAZOLE 42645433999 Kulwant P BIOTIN 1000 MCG TABS by mouth daily 01/11 BIOTIN 04337413482 Kulwant P ATORVASTATIN CALCIUM 40 MG TABS by mouth at bedtime 01/11 ATORVASTATIN CALCIUM 15307972761 Kulwant P COUMADIN 5 MG ORAL TABLET by mouth, AC dinner 05/19 WARFARIN SODIUM 88982385410 Kulwant P LACTULOSE SOLN 30mL by mouth as needed 02/19 LACTULOSE SOLN 09475331685 Kulwant P HYDROCORTISONE ACETATE 1 % CREA apply topically twice a day as needed 10/25 HYDROCORTISONE ACETATE 44584535555 Kulwant P MS CONTIN 15 MG CR-TABS by mouth twice daily 11/20 MORPHINE SULFATE 98781248451 Kulwant P [facility] [address] 325 (65 Fe) MG TABS by mouth daily 11/20 FERROUS SULFATE 47168378335 Kulwant P COLACE 100 MG CAPS by mouth twice daily as needed 02/19 DOCUSATE SODIUM 92205491476 Kulwant P PERCOCET 5-325 MG TABS 1-2 tabs, every four to six hours, do not exceed 4000mg of acetaminophen per day 11/20 OXYCODONE-ACETAMI NOPHEN 89603404437 Kulwant P VANCOMYCIN HCL SOLR 1gm IV q 12 x 6wks [facility] [phone] 08/22 VANCOMYCIN HCL SOLR 24742870949 [facility] Medications Administered No information available. Allergies, [...] or Plasma Office Visit: rm #8 DIET [place] HOLD yes Dietary management education, guidance, and counseling [...] Oral Antibiotic CPT-ca Continue IV antibiotics 2022 CPT-91079 CMP [id number] CBC with Differential 2022 CPT-31482 C- reactive protein [id number], [id number] CPK CPT-J7030 IV Fluids CPT-sl STAT Labs CPT-sl STAT Labs CPT-sl STAT Labs CPT-88297 C- reactive protein CPT-46040 Sedimentation Rate (ESR) 201 02/20/04 CPT-95574 Vancomycin Trough CPT-33482 CMP [id number] CBC with Differential 2015 CPT-45562 C- reactive protein CPT-20768 Sedimentation Rate (ESR) 201 01/31/26 CPT-ca Continue IV antibiotics 2015 CPT-wpc Weekly PICC Line Care 09/28 CPT-97232 CMP [id number] CBC with Differential 2015 CPT-51387 Vancomycin Trough CPT-90229 C- reactive protein CPT-83051 Sedimentation Rate (ESR) 201 01/31/07 CPT-cdpcr C-Diff PCR CPT-isi New IV antibiotic CPT-73154 PICC Line Insertion CPT-16410 [facility] [id number] CBC with Differential 2015 CPT-04976 C- reactive protein CPT-03440 Sedimentation Rate (ESR) 201 01/30/30 CPT-DC Discontinue IV antibiotics 2 CPT-PICREM PICC Removal CPT-ca Continue IV antibiotics 2015 CPT-02065 CMP [id number] CBC with Differential 2015 CPT-95745 C- reactive protein CPT-05654 Sedimentation Rate (ESR) 201 01/27/01 CPT-41539 Vancomycin Trough CPT-ca Continue IV antibiotics 2015 CPT-61330 CMP [id number] CBC with Differential 2015 CPT-84266 C- reactive protein CPT-63547 Sedimentation Rate (ESR) 201 01/27/20 CPT-81835 Vancomycin Trough CPT-ca Continue IV antibiotics 2015 [...]
--- OUTSIDE RECORDS SUMMARY | 2025-03-04 05:59 | XMS_ITS | Clinical Summary ---
Author Organization [facility] Address [address] [place] [address] Care Team Providers Care Insurance Processing Clerk Name Role Phone Cayla Erazo APRN, DNP Unavailable [phone] Vignesh Picekns MD Primary Care Provider [phone] Allergies Active Allergy Reactions Criticality Noted Date [...] 6 hours as needed. 01/17/20 20 Active loperamide (Imodium) 2 [...] 2 times a day with meals. 01/17/20 20 Active clopidogrel (Plavix) 75 MG tablet Take 1 tablet by mouth daily. 01/17/20 20 Active fluticasone (Flonase) 50 MCG/ACT nasal spray [...] by mouth 2 times a day. Active Breo Ellipta 100-25 MCG/ACT aerosol powder Inhale 1 puff daily. 09/13/19 Active ascorbic acid (Vitamin C) 500 MG tablet Take 1 tablet by mouth twice a day. Active magnesium oxide (Mag-Ox) 400 mg tablet Take 1 tablet by mouth 2 times a day. Active cyanocobalami n (Vitamin B-12) 1000 MCG tablet Take 1 tablet by mouth daily. Active cholecalcifer ol (Vitamin D3) 25 MCG (1000 UT) tablet Take 1 tablet by mouth 2 times a day. Active azelastine (Astelin) 0.1 % nasal spray Administer 2 sprays into each nostril 2 times a day. Use in each nostril as directed Active calcitriol (Rocaltrol) 0.25 MCG capsule Take 1 capsule by mouth daily. Active multivitamin (Theragran-M) tablet Take 1 tablet by mouth daily. Active estradiol (Estrace) 0.1 MG/GM vaginal cream Insert 1 gram into the vagina 3x/week 30 g 3 09/26/19 Active trospium (Sanctura) 20 MG tablet Take 1 tablet (20 mg) by mouth 2 (two) times a day. 60 tablet 09/26/19 25 026 Active D-Mannose 500 MG capsule Take 2,000 mg by mouth 1 (one) time each day. 120 capsule 09/26/19 25 026 Active mirabegron ER (Myrbetriq) 50 MG tablet Take 1 tablet by mouth daily. Active DULoxetine (Cymbalta) [address] capsule Take 1 capsule by mouth daily for 7 doses. Do not crush or chew. 03/02/20 25 025 Active insulin glargine-yfgn 100 UNIT/ML injection vial Inject 30 Units under the skin nightly. 03/02/20 25 Active oxyCODONE-vida taminophen (Percocet) 5-325 MG tablet Take 1 tablet by mouth 2 times a day as needed for severe pain. 6 tablet 03/02/20 25 Active pregabalin (Lyrica) 50 MG capsule Take 1 capsule by mouth daily. 3 capsule 03/02/20 25 Active fentaNYL (Duragesic) 12 MCG/HR Place 1 patch on the skin every 3rd day. 3 patch 03/02/20 25 Active naloxone (Narcan) 4 mg/0.1 mL nasal spray 1. Give 1 spray in nostril for no/slow breathing or cannot wake after opioid use 2. Call 911 3. Repeat in other nostril if symptoms continue 1 each 03/02/20 25 Active dextromethorp otero-guaiFENes in (Robitussin-D M) 10-100 MG/5ML liquid Take 10 mL by mouth every 4 (four) hours if needed. 01/17/20 025 Discontinued(E ntered in Error) ipratropium-a lbuterol (Duo-Neb) 0.5-2.5 mg/3 mL nebulizer solution Take 3 mL by nebulization every 6 hours as needed. 025 Discontinued(E ntered in Error) rivaroxaban (Xarelto) 15 MG tablet Take 1 tablet by mouth every evening. Take with food. 025 Discontinued(S top Taking at Discharge) ARIPiprazole (Abilify) 5 MG tablet Take 1 tablet (5 mg) by mouth 1 (one) time each day. 025 Discontinued(E ntered in Error) DULoxetine (Cymbalta) [address] capsule Take 1 capsule by mouth daily. Do not crush or chew. Take with 60mg capsule for a 90mg dose 025 Discontinued DULoxetine (Cymbalta) [address] capsule Take 1 capsule by mouth daily. Do not crush or chew. Take with 30mg capsule for a 90mg dose 025 Discontinued diphenhydrAMI NE (Benadryl) 25 MG tablet Take 1 tablet by mouth 2 times a day as needed for itching. 025 Discontinued(E ntered in Error) insulin aspart, w/niacinamide , (Fiasp) 100 UNIT/ML solution vial Inject as directed 2 (two) times a day. Per sliding scale @ 1130 and 1630 025 Discontinued(E ntered in Error) insulin glargine (Basaglar KwikPen) 100 UNIT/ML injection pen Inject 70 Units under the skin 2 times a day. @ 0630 and 2000 025 Discontinued(S top Taking at Discharge) fentaNYL (Duragesic) 12 MCG/HR Place 1 patch on the skin every 3rd (third) day. 3 patch 08/22/19 025 Discontinued pregabalin (Lyrica) 50 MG capsule Take 1 capsule (50 mg) by mouth 2 (two) times a day. 60 capsule 08/22/19 025 Discontinued(S top Taking at Discharge) oxyCODONE-vida taminophen (Percocet) 5-325 MG tablet Take 1 tablet by mouth 2 (two) times a day if needed for severe pain. 6 tablet 08/22/19 025 Discontinued traZODone (Desyrel) 300 MG tablet 12/13/19 025 Discontinued(E ntered in Error) Vibegron 75 MG tablet Take 75 mg by mouth daily. Take one pill by mouth daily. 30 tablet 12/21/19 025 Discontinued Artificial Tears ophthalmic solution Administer 2 drops into both eyes 3 times a day as needed. 11/24/19 025 Discontinued(E ntered in Error) guaiFENesin (GUAIASORB PO) Take 10 mL by mouth every 4 hours as needed. 025 Discontinued(E ntered in Error) mirabegron ER (Myrbetriq) 25 MG tablet Take 2 tablets by mouth every morning. 60 tablet 02/01/20 025 Discontinued fluconazole (Diflucan) 100 MG tabletIndicat ions:Urinary retention Take 1 tablet by mouth daily for 14 days. 14 tablet 02/01/20 25 025 insulin aspart (NovoLOG) 100 UNIT/ML injection pen Inject under the skin 2 times a day. Sliding scale 025 Discontinued(S top Taking at Discharge) insulin glargine-yfgn 100 UNIT/ML injection vial Inject 30 Units under the skin nightly. 10 mL 5 03/01/20 25 025 Discontinued DULoxetine (Cymbalta) [address] capsule Take 1 capsule by mouth daily for 7 doses. Do not crush or chew. 7 capsule 03/02/20 25 025 Discontinued insulin glargine-yfgn 100 UNIT/ML injection vial Inject 30 Units under the skin nightly. 10 mL 5 03/01/20 25 025 Discontinued DULoxetine (Cymbalta) [address] capsule Take 1 capsule by mouth daily for 7 doses. Do not crush or chew. 7 capsule 03/02/20 25 025 Discontinued pregabalin (Lyrica) 50 MG capsule Take 1 capsule by mouth daily. 3 capsule 03/02/20 25 025 Discontinued fentaNYL (Duragesic) 12 MCG/HR Place 1 patch on the skin every 3rd day. 3 patch 03/01/20 25 025 Discontinued naloxone (Narcan) 4 mg/0.1 mL nasal spray 1. Give 1 spray in nostril for no/slow breathing or cannot wake after opioid use 2. Call 911 3. 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 03/02/20 25 025 Active Problems Problem Noted Date Diagnosed Date Sepsis 02/22/2025 History of stroke 12/31/2024 Hx of AKA [...] Kidney infection 08/16/2024 Dave coma scale total sco re 13-15, unspecified [...] joint Acute kidney injury superimposed on CKD 01/05/2005/25/2023 Arthritis 01/04/2023 05/25/2023 Cellulitis of left knee 01/04/2023 05/25/20 Chronic respiratory failure 01/04/202311/2022 COPD (chronic obstructive pulmonary disease) 05/25/2023 Dehydration with hyponatremia 01/04/2023 Diabetes mellitus 01/04/2023 05/25/2023 Hyperlipidemia 01/04/2023 05/25/2023 Restrictive lung disease 01/04/2023 023 Stroke 01/04/2023 05/25/2023 Second hand smoke exposure 10/04/2022 Iron deficiency anemia 03/01/2022 Hypotension 06/03/2017 GERD without esophagitis 03/28/2017 CAD (coronary artery disease), andreafski coronary a rtery 03/28/2017 Controlled diabetes mellitus [...] 02/12/2016 Overview (09/26/2024): From Automated Load;Provider: Alphonso aBrahona;Status: Active Essential (primary) hypertension 05/21/2013 Resolved Problems Problem Noted Date Diagnosed Date Resolved Date CKD (chronic kidney disease) stage 3, GFR 30-59 ml/min 03/07/2017 08/29/2023 Encounters Date Type Department Care Team Description 03/01/2025 Telephone [facility] [address] [place] [phone] Dental, Surgeon, 02/28/2025 8:15 AM EDT Office Visit [facility] [address] [place] [phone] Bert Lim, DMD Caries (Primary Dx) 02/28/2025 Travel 02/27/2025 Travel 02/24/2025 Travel 02/22/2025 6:13 PM EDT - 03/02/2025 11:04 AM EDT Hospital Encounter [facility] [address] [place] [phone] Daniel Gordillo MD Salahuddin, Nawal, MD Powers, Michael F, MD Pasha, Sara N, MD Sagheer, Iqra, MD Acute respiratory failure with hypoxia and hypercapnia (Primary Dx); [place] coma scale total score 9-12, at arrival to emergency department; Acute cystitis without hematuria; Acute respiratory failure with hypercapnia; COPD exacerbation (CMS/HCC); Acute kidney injury superimposed on CKD (CMS/HCC); Chronic kidney disease, stage 3a (CMS/HCC); Hyponatremia; Acute encephalopathy; Sepsis with encephalopathy without septic shock, due to unspecified organism (CMS/HCC); Chronic diastolic (congestive) heart failure (CMS/HCC); 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 Discharge Disposition: [facility] 02/22/2025 Travel 02/22/2025 Orders Only External Location [address] [place] [address] Jordan Carl MD 02/22/2025 Orders Only External Location [address] [place] [address] Jordan Carl MD 02/22/2025 Orders Only External Location [address] [place] [address] Jordan Carl MD 02/22/2025 Orders Only External Location [address] [place] [address] Jordan Carl MD 01/31/2025 9:48 AM EDT Anesthesia Event [facility] [address] [place] [address] Nj Sears MD 01/31/2025 8:55 AM EDT - 01/31/2025 10:10 AM EDT Surgery [facility] [address] [place] [address] Ceci Mitchell MD URETEROSCOPY,CYSTOSCO PY, RETROGRADE PYELOGRAM, BILATERAL STENT PLACEMENT [85540 (CPT )] 01/31/2025 8:03 AM EDT - 01/31/2025 1:39 PM EDT Hospital Encounter [facility] [address] [place] [address] Ceci Mitchell MD Urinary retention (Primary Dx); Gross hematuria Discharge Disposition: Home or Self Care 01/31/2025 Travel 01/24/2025 2:00 PM EDT [facility] [address] [place] [address] 01/24/2025 Travel 01/23/2025 Telephone [facility] [address], [address] [place] [address] Ceci Mitchell MD 01/17/2025 Telephone [facility] [address], [address] [place] [address] Ceci Mitchell MD 01/16/2025 Telephone [facility] [address], [address] [place] [address] Ceci Mitchell MD 01/03/2025 2:15 PM EDT - 01/03/2025 11:59 PM EDT Hospital Encounter [facility] [address] [place] [address] Gross hematuria Discharge Disposition: Home or Self Care 01/03/2025 Travel 12/31/2024 4:00 PM EDT Office Visit [facility] [address] [place] [address] Bert Canela MD Asymptomatic bilateral carotid artery stenosis (Primary Dx); PVD (peripheral vascular disease) ([facility]); Hx of AKA (above knee amputation), left ([facility]); History of stroke; Type 2 diabetes mellitus without complication, unspecified whether vermin exterminator insulin use 12/31/2024 2:01 PM EDT - 12/31/2024 11:59 PM EDT Hospital Encounter [facility] [address] [place] [address] Coronary artery disease involving andreafski heart without angina pectoris, unspecified vessel or lesion type; S/P AKA (above knee amputation) bilateral ([facility]/HCC); Acute left arterial ischemic stroke, ICA (internal carotid artery) ([facility]) Discharge Disposition: Home or Self Care 12/31/2024 2:01 PM EDT - 12/31/2024 11:59 PM EDT Hospital Encounter [facility] [address] [place] [address] S/P AKA (above knee amputation) bilateral ([facility]); Encounter for surgical aftercare following surgery on the circulatory system Discharge Disposition: Home or Self Care 12/31/2024 Travel 12/20/2024 9:20 AM EDT Office Visit [facility] [address] [place] [address] Cayla Erazo, MARKETING COMMUNICATIONS ASSOCIATE, DNP Recurrent UTI (Primary Dx); Hydronephrosis, unspecified hydronephrosis type; Urinary retention; Post-menopausal atrophic vaginitis; Gross hematuria 12/20/2024 Orders Only External Location [address] [place] [address] Provider, External 12/20/2024 Travel 12/04/2024 12:05 PM EDT - 12/04/2024 11:59 PM EDT Hospital Encounter [facility] Office Building Cardiac Diagnostic Testing Medical [facility] Echo Lab [address], [address] [place] [address] Coronary artery disease involving andreafski heart without angina pectoris, unspecified vessel or lesion type Discharge Disposition: Home or Self Care 12/04/2024 Travel from Last 3 Months Immunizations Immunization Administration Dates Next Due Influenza, injectable, quadrivalent, preservativ e free 05/11/2016 [employer] COVID-19 Vaccine (Purple Cap) 12 + 09/30/2020,09/09/2020 [...] in the past 12 m [facility], were you homeless or living in a [...] drink first t rodríguez in the morning (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 [place] [address] 03/27/2025 11:50 AM EDT Clinical Support [facility] Lab [address] [place] [address] 03/27/2025 1:00 PM EDT Office Visit [facility] Urology [address] [facility] [address], [address] [place] [address] Cayla Erazo, MARKETING COMMUNICATIONS ASSOCIATE, DNP [address] [place] [phone] 05/16/2025 8:00 AM EDT Office Visit [facility] [place] [address], [address] [place] [address] Karly Gracia MD [address] [place] [address] 06/07/2025 1:00 PM EDT Office Visit [facility] [address] [place] [address] Tom Iraheta MD [address] [place] [address] Health Maintenance Due Date Last Done Comments Dental Oral Exam 1959 Dental Prophylaxis 1959 Dental X-Ray: Bitewings 1959 Dental X-Ray: Full Mouth 1959 [facility]-Bone Density Scan 1959 [facility]-Medicare Annual Wellness (AWV) 1959 [facility]-Infant/Child/Adol SDOH Screenings 1959 Diabetes: Dental Exam 1969 [facility]-DTaP,Tdap,and Td Vaccines (1 - Tdap) 1978 [facility]-Pneumococcal Vaccine: 50+ Years (1 of 2 - PCV) 1978 CT Colonography 2004 Colonoscopy 2004 FIT-DNA 2004 FIT 2004 FOBT 2004 Sigmoidoscopy 2004 [facility]-Colorectal Cancer Screening 2004 [facility]-Zoster Vaccines (1 of 2) 2009 [facility]-Pap Smear 04/10/2016 04/10/2013, 04/05/2013 [facility]-Cervical Cancer Screening 04/10/2018 [facility]-HPV/Cotest 04/10/2018 04/10/2013, 04/05/2013 [facility]-RSV Vaccine: 60+ Years or (1 - Risk 60-74 years 1-dose series) 2019 DED-IIDLD-61 Vaccine (3 - Pfizer risk series) 10/28/2020 09/30/2020, 09/09/2020 [facility]- SDOH Screenings 02/18/2025 [facility]-Adult SDOH Screenings 02/18/2025 08/20/2024 [facility]-Influenza Vaccine (#1) 2025 05/11/2016 [facility]-Diabetes: Hemoglobin A1C 05/24/2025 02/22/2025, 03/05/2014 [facility]-Depression Screening 12/20/2025 025, 09/26/2024, 09/13/2022, Additional history exists [facility]-Hepatitis C Screening Completed 08/15/2024 [facility]-Obesity Intervention Completed 025, 02/22/2025, 12/31/2024, Additional history exists HPV Vaccines Aged Out [...] on patient's age to complete this topic Medical Devices Implanted Type Area Director Of Infection Control Device Identifier Shelf Expiration Date Model / Serial / Lot Stent Ureteral [employer]ria [employer] Monofilament 7f/24cm - [id number] Implanted:Qty: 1 on 01/31/2025 by Ceci Mitchell MD at [facility] Right: Kidney Betable-[id number] 49 06/14/2027 [id number] / / [id number] Stent Ureteral [employer]ria [employer] Monofilament 7f/24cm - [id number] Implanted:Qty: 1 on 01/31/2025 by Ceci Mitchell MD at [facility] Left: Kidney Betable-1184 49 07/02/2027 [id number] / / [id number] Procedures Procedure Name Priority Date/Time Associated Diagnosis Comments POCT GLUCOSE METER UNSOLICITED RESULTS Routine 03/02/2025 8:13 AM EDT POCT GLUCOSE METER UNSOLICITED RESULTS Routine 03/01/2025 7:46 PM EDT POCT GLUCOSE METER UNSOLICITED RESULTS Routine 03/01/2025 5:42 PM EDT SEND HECTOR MESSAGE Routine 03/01/2025 4: 15 PM EDT URINALYSIS MICROSCOPIC FOR UA REFLEX Routine 03/01/2025 4:15 PM EDT URINE SALMON PANEL Routine 03/01/2025 4:15 PM EDT URINALYSIS WITH REFLEX MICROSCOPIC Routine 03/01/2025 4:15 PM EDT URINALYSIS WITH REFLEX MICROSCOPIC AND CULTURE Routine 03/01/2025 4:15 PM EDT URINE CULTURE Routine 03/01/2025 4:15 PM EDT POCT GLUCOSE METER UNSOLICITED RESULTS Routine 03/01/2025 12:03 PM EDT OXYGEN THERAPY Routine 03/01/2025 8:00 AM EDT POCT GLUCOSE METER UNSOLICITED RESULTS Routine 03/01/2025 7:59 AM EDT CBC WITH AUTO DIFFERENTIAL Routine 03/01/2025 4:08 AM EDT MAGNESIUM, PLASMA Routine 03/01/2025 4:0 8 AM EDT BASIC METABOLIC PANEL, PLASMA Routine 03/01/2025 4:08 AM EDT PHOSPHORUS, PLASMA Routine 03/01/2025 4: 08 AM EDT POCT GLUCOSE METER UNSOLICITED RESULTS Routine 03/01/2025 3:09 AM EDT POCT GLUCOSE METER UNSOLICITED RESULTS Routine 02/28/2025 8:25 PM EDT OXYGEN THERAPY Routine 02/28/2025 8:00 PM EDT POCT GLUCOSE METER UNSOLICITED RESULTS Routine 02/28/2025 4:59 PM EDT CBC WITH AUTO DIFFERENTIAL STAT 02/28/2025 1:04 PM EDT MAGNESIUM, PLASMA STAT 02/28/2025 1:0 4 PM EDT BASIC METABOLIC PANEL, PLASMA STAT 02/28/2025 1:04 PM EDT PHOSPHORUS, PLASMA STAT 02/28/2025 1: 04 PM EDT POCT GLUCOSE METER UNSOLICITED RESULTS Routine 02/28/2025 12:17 PM EDT 15 EXTRACTION, ERUPTED TOOTH OR EXPOSED ROOT (ELEVATION AND/OR FORCEPS REMOVAL) Routine 02/28/2025 8:15 AM EDT Caries OXYGEN THERAPY Routine 02/28/2025 8:00 AM EDT [...] EDT EXTUBATION Routine 02/24/2025 9:49 AM EDT [facility] 30-74 MINUTES Routine 02/24/2025 7:08 AM EDT Acute respiratory failure with hypoxia and hypercapnia Acute kidney injury superimposed on CKD ([facility]) Chronic kidney disease, stage 3a ([facility]) Hyponatremia Acute encephalopathy Sepsis with encephalopathy without septic shock, due to unspecified organism ([facility]) Chronic diastolic (congestive) heart failure ([facility]) POCT GLUCOSE METER UNSOLICITED RESULTS Routine 02/24/2025 5:20 AM EDT CYSTATIN C Add-On 02/24/2025 1:01 AM EDT CBC WITH AUTO DIFFERENTIAL Routine 02/24/2025 1:01 AM EDT IONIZED CALCIUM, WHOLE BLOOD Routine 02/24/2025 1:01 AM EDT PHOSPHORUS, PLASMA Routine 02/24/2025 1: 01 AM EDT MAGNESIUM, PLASMA Routine 02/24/2025 1:0 1 AM EDT PROCALCITONIN, PLASMA Routine 02/24/2025 1:01 AM EDT COMPREHENSIVE METABOLIC PANEL, PLASMA Routine 02/24/2025 1:01 AM EDT BLOOD GAS PANEL, VENOUS Routine 02/24/2025 1:01 AM EDT POCT GLUCOSE METER UNSOLICITED RESULTS Routine 02/24/2025 1:00 AM EDT POCT GLUCOSE METER UNSOLICITED RESULTS Routine 02/23/2025 5:07 PM EDT SODIUM, URINE, RANDOM Routine 02/23/2025 3:12 PM EDT OSMOLALITY, URINE Routine 02/23/2025 3:1 2 PM EDT OSMOLALITY, SERUM Add-On 02/23/2025 3:0 4 PM EDT CYSTATIN C Add-On 02/23/2025 3:04 PM EDT SODIUM, PLASMA Routine 02/23/2025 3:04 PM EDT POCT GLUCOSE METER UNSOLICITED RESULTS Routine 02/23/2025 11:43 AM EDT STREPTOCOCCUS PNEUMONIAE AND LEGIONELLA URINARY ANTIGEN Routine 02/23/2025 11:05 AM EDT WOUND OSTOMY EVAL AND TREAT Routine 02/23/2025 10:25 AM EDT [facility], E/M 30-74 MINUTES Routine 02/23/2025 9:10 AM EDT Acute respiratory failure with hypoxia and hypercapnia Acute kidney injury superimposed on CKD ([facility]) Chronic kidney disease, stage 3a ([facility]) Hyponatremia Acute encephalopathy Sepsis with encephalopathy without septic shock, due to unspecified organism ([facility]) VANCOMYCIN, RANDOM, PLASMA Routine 02/23/2025 8:34 AM EDT SODIUM, PLASMA Timed 02/23/2025 8:34 AM EDT BLOOD GAS PANEL, VENOUS Timed 02/23/2025 8:34 AM EDT VENTILATOR - ADULT Routine 02/23/2025 8: 00 AM EDT END TIDAL CO2 MONITORING Routine 02/23/2025 8:00 AM EDT SBT - SPONTANEOUS BREATHING TRIAL Routine 02/23/2025 6:00 AM EDT POCT GLUCOSE METER UNSOLICITED RESULTS Routine 02/23/2025 5:13 AM EDT VENTILATOR - ADULT Routine 02/23/2025 4: 47 AM EDT VENTILATOR - ADULT Routine 02/23/2025 4: 47 AM EDT POCT GLUCOSE METER UNSOLICITED RESULTS Routine 02/23/2025 2:11 AM EDT METHICILLIN RESISTANT STAPHYLOCOCCUS AUREUS (MRSA) BY PCR Routine 02/23/2025 2:05 AM EDT NASOPHARYNGEAL RESPIRATORY PANEL Routine 02/23/2025 2:05 AM EDT ANTI XA LEVEL LOW MOLECULAR WEIGHT HEPARIN Routine 02/23/2025 2:04 AM EDT TROPONIN T, HIGH SENSITIVITY, 2 HOUR, PLASMA Timed 02/23/2025 2:04 AM EDT SODIUM, PLASMA Timed 02/23/2025 2:04 AM EDT BLOOD GAS PANEL, VENOUS Timed 02/23/2025 2:04 AM EDT VANCOMYCIN, RANDOM, PLASMA Routine 02/23/2025 12:05 AM EDT SODIUM, PLASMA Timed 02/23/2025 12:05 AM EDT BLOOD GAS PANEL, VENOUS Timed 02/23/2025 12:05 AM EDT TROPONIN T, HIGH SENSITIVITY, 0 HOUR, PLASMA, REFLEX TO 2 HOUR STAT 02/23/2025 12:05 AM EDT PHOSPHORUS, PLASMA Routine 02/23/2025 12 :05 AM EDT MAGNESIUM, PLASMA Routine 02/23/2025 12: 05 AM EDT BASIC METABOLIC PANEL, PLASMA Routine 02/23/2025 12:05 AM EDT POCT GLUCOSE METER UNSOLICITED RESULTS Routine 02/23/2025 12:04 AM EDT QUANTITATIVE BAL/PAL/BRONCH WASH CULTURE AND GRAM STAIN Routine 02/23/2025 12:00 AM EDT ECG ADULT Routine 02/22/2025 11:57 PM EDT PROCALCITONIN, PLASMA Add-On 02/22/2025 10:03 PM EDT N-TERMINAL PROBNP, PLASMA Routine 02/22/2025 10:03 PM EDT MULTI DRUG RESISTANCE TEST Routine 02/22/2025 10:02 PM EDT MAIRA AURIS SURVEILLANCE BY PCR Routine 02/22/2025 10:02 PM EDT FENTANYL, URINE STAT 02/22/2025 10:01 PM EDT SEND HECTOR MESSAGE Routine 02/22/2025 10 :01 PM EDT URINALYSIS MICROSCOPIC FOR UA REFLEX Routine 02/22/2025 10:01 PM EDT URINE SALMON PANEL Routine 02/22/2025 10:0 1 PM EDT URINALYSIS WITH REFLEX MICROSCOPIC Routine 02/22/2025 10:01 PM EDT URINALYSIS WITH REFLEX MICROSCOPIC AND CULTURE Routine 02/22/2025 10:01 PM EDT DRUG ABUSE SCREEN, URINE STAT 02/22/2025 10:01 PM EDT URINE CULTURE Routine [...] VIEW STAT 02/22/2025 7:0 5 PM EDT SBT - SPONTANEOUS BREATHING TRIAL Routine 02/22/2025 6:58 PM EDT END TIDAL CO2 MONITORING Routine 02/22/2025 6:58 PM EDT VENTILATOR - ADULT Routine 02/22/2025 6: 58 PM EDT HEMOGLOBIN A1C Add-On 02/22/2025 6:41 PM EDT N-TERMINAL PROBNP, PLASMA STAT Add-on 02/22/2025 6:41 PM EDT FREE T4, PLASMA STAT 02/22/2025 6:41 PM EDT TSH STAT 02/22/2025 6:41 PM EDT ETHYL ALCOHOL PLASMA STAT 02/22/2025 6:41 PM EDT CBC WITH AUTO DIFFERENTIAL STAT 02/22/2025 6:41 PM EDT COMPREHENSIVE METABOLIC PANEL, PLASMA STAT 02/22/2025 6:41 PM EDT POCT VENOUS BLOOD GAS GEM UNSOLICITED RESULTS Routine 02/22/2025 6:37 PM EDT POCT GLUCOSE METER UNSOLICITED RESULTS Routine 02/22/2025 6:17 PM EDT INTUBATION Routine 02/22/2025 6:13 PM EDT XR OUTSIDE IMAGES 02/22/2025 12: [address] OUTSIDE IMAGES 02/22/2025 12: [address] OUTSIDE IMAGES 02/22/2025 12: [address] OUTSIDE IMAGES 02/22/2025 12: 46 PM EDT POCT GLUCOSE METER UNSOLICITED RESULTS Routine 01/31/2025 11:39 AM EDT FL LESS THAN 1 HOUR (NON-REPORTABLE) Routine 01/31/2025 11:14 AM EDT FUNGAL CULTURE, ROUTINE Routine 01/31/2025 10:23 AM EDT Gross hematuria URINE CULTURE Routine 01/31/2025 10:22 AM EDT Gross hematuria PB ANESTHESIA PLACEHOLDER Routine 01/31/2025 9:58 AM EDT [facility] AN ELECTIVE ENDOTRACHEAL AIRWAY Routine 01/31/2025 9:58 AM EDT [facility] CYSTO/URETERO/PYELOSC ,BX &/OR FULG LESN 01/31/2025 9:32 AM EDT [...] 2:27 PM EDT Coronary artery disease involving andreafski heart without angina pectoris, unspecified vessel or [...] 1:26 PM EDT Coronary artery disease involving andreafski heart without angina pectoris, unspecified vessel or lesion type HEPATITIS C ANTIBODY - ED W/REFLEX TO HCV QUANT PCR STAT 08/15/2024 5:35 AM EST CYTO DATA CONVERSION Routine 04/10/2013 12:00 AM EDT from Last 3 Months or Most Recently Relevant to Health Maintenance Results * (ABNORMAL) POCT glucose meter (03/02/2025 8:13 AM EDT) Only the most recent of35 resultswithin the time period is included. POCT Glucose 188(H) 74 - 99 mg/dL 03/02/2025 8:14 AM EDT [facility] Comment:Accuracy of a glucos e result [...] Comment 03/02/2025 8:14 AM EDT [facility] Veterinary Medical Officer ID Stefanie Frances 025 8:14 AM EDT [facility] Device ID [id number] 03/02/2025 8:14 AM EDT [facility] Specimen Type POC Capillary 03/02/2025 8:14 AM EDT [facility] Blood Capillary blood specimen / Unknown 03/02/2025 8:13 AM EDT 03/02/2025 8:14 AM EDT us Madonna Singleton MD LAB POINT OF CARE TE ST DOCKED DEVICE UNSOLICITED RESULTS Final Result Performing Organization Address [facility] Phone Number [facility] [address] [place] [address] * SEND HECTOR MESSAGE (03/01/2025 4:15 PM EDT) Only the most recent of2 resultswithin the time period is included. Urine Urine specimen obtained by clean catch procedure / Unknown Non-blood Collection / Unknown 03/01/2025 4:15 PM EDT 03/01/2025 4:26 PM EDT us Madonna Singleton MD LAB URINE ORDERABLES Final Resul t Performing Organization Address [facility] [place] [address] * Urine Salmon Panel (03/01/2025 4:15 PM EDT) Only the most recent of2 resultswithin the time period is included. Extra Sent for Culture 03/01/2025 6:01 PM EDT [facility] Urine Urine specimen obtained by clean catch procedure / Unknown Non-blood Collection / Unknown 03/01/2025 4:15 PM EDT 03/01/2025 4:26 PM EDT us Madonna Singleton MD LAB URINE ORDERABLES Final Resul t Performing Organization Address [facility] Phone Number [facility] [address] [place] [address] * Urinalysis Microscopic Examination (03/01/2025 4:15 PM EDT) Only the most recent of2 resultswithin the time period is included. Urine Urine specimen obtained by clean catch procedure / Unknown Non-blood Collection / Unknown 03/01/2025 4:15 PM EDT 03/01/2025 4:26 PM EDT us Madonna Singleton MD LAB URINE ORDERABLES Final Resul t [facility] [address] [place] [address] * (ABNORMAL) Urinalysis with reflex microscopic (Culture NOT Included) (03/01/2025 4:15 PM EDT) Only the most recent of2 resultswithin the time period is included. Color, Urine Yellow LAB URINALYSIS - AUTOMATED METHOD 03/01/2025 4:34 PM EDT [facility] Clarity, Urine Cloudy LAB URINALYSIS - AUTOMATED METHOD 03/01/2025 4:34 PM EDT [facility] Spec [place], Urine 1.008 1.005 - 1.030 LAB URINALYSIS - AUTOMATED METHOD 03/01/2025 4:34 PM EDT [facility] pH, Urine 6.5 5.0 - 8.0 LAB URINALYSIS - AUTOMATED METHOD 03/01/2025 4:34 PM EDT [facility] Protein, Urine 30(A) Negative mg/dL LAB URINALYSIS - AUTOMATED METHOD 03/01/2025 4:34 PM EDT [facility] Glucose, Urine Negative Negative mg/dL LAB URINALYSIS - AUTOMATED METHOD 03/01/2025 4:34 PM EDT [facility] Ketones, Urine Negative Negative mg/dL LAB URINALYSIS - AUTOMATED METHOD 03/01/2025 4:34 PM EDT [facility] Blood, Urine Large(A) Negative LAB URINALYSIS - AUTOMATED METHOD 03/01/2025 4:34 PM EDT [facility] Bilirubin, Urine Negative Negative LAB URINALYSIS - AUTOMATED METHOD 03/01/2025 4:34 PM EDT [facility] Urobilinogen, Urine 0.2 0.2 to 1.0 mg/dL LAB URINALYSIS - AUTOMATED METHOD 03/01/2025 4:34 PM EDT [facility] Leukocytes, Urine Large(A) Negative LAB URINALYSIS - AUTOMATED METHOD 03/01/2025 4:34 PM EDT [facility] Nitrite, Urine Negative Negative LAB URINALYSIS - AUTOMATED METHOD 03/01/2025 4:34 PM EDT [facility] RBC, Urine >50(A) 0 to 3 /HPF LAB URINALYSIS - AUTOMATED METHOD 03/01/2025 4:34 PM EDT [facility] WBC, Urine >50(A) 0 to 5 /HPF LAB URINALYSIS - AUTOMATED METHOD 03/01/2025 4:34 PM EDT [facility] Squamous Epithelial Cells 3 - 5 0 to 5 /HPF LAB URINALYSIS - AUTOMATED METHOD 03/01/2025 4:34 PM EDT [facility] Hyaline Casts 0 - 2 0 to 5 /LPF LAB URINALYSIS - AUTOMATED METHOD 03/01/2025 4:34 PM EDT [facility] Bacteria, Urine Negative Negative LAB URINALYSIS - AUTOMATED METHOD 03/01/2025 4:34 PM EDT [facility] Urine Urine specimen obtained by clean catch procedure / Unknown Non-blood Collection / Unknown 03/01/2025 4:15 PM EDT 03/01/2025 4:26 PM EDT us Madonna Mani [facility] LAB URINE ORDERABLES Final Resul t [facility] [address] [place] [address] * (ABNORMAL) CBC and Differential (03/01/2025 4:08 AM EDT) Only the most recent of4 resultswithin the time period is included. WBC Count 6.83 3.70 - 10.30 10*3/uL LAB HEMATOLOGY METHOD 03/01/2025 4:54 AM EDT [facility] RBC Count 3.61(L) 3.90 - 5.20 10*6/uL LAB HEMATOLOGY METHOD 03/01/2025 4:54 AM EDT [facility] HGB 9.2(L) 11.2 - 15.7 g/dL LAB HEMATOLOGY METHOD 03/01/2025 4:54 AM EDT [facility] HCT 29.9(L) 34.0 - 45.0 % LAB HEMATOLOGY METHOD 03/01/2025 4:54 AM EDT [facility] Platelet Count 294 155 - 369 10*3/uL LAB HEMATOLOGY METHOD 03/01/2025 4:54 AM EDT [facility] MCV 83 79 - 98 fL LAB HEMATOLOGY METHOD 03/01/2025 4:54 AM EDT [facility] MCH 25.5(L) 26.0 - 32.0 pg LAB HEMATOLOGY METHOD 03/01/2025 4:54 AM EDT [facility] MCHC 30.8 30.7 - 35.5 g/dL LAB HEMATOLOGY METHOD 03/01/2025 4:54 AM EDT [facility] RDW 15.1(H) 11.5 - 14.5 % LAB HEMATOLOGY METHOD 03/01/2025 4:54 AM EDT [facility] MPV 9.2 8.8 - 12.5 fL LAB HEMATOLOGY METHOD 03/01/2025 4:54 AM EDT [facility] nRBC 0.0 <=0.0 per 100 WBCs LAB HEMATOLOGY METHOD 03/01/2025 4:54 AM EDT [facility] Differential Type Automated LAB HEMATOLOGY METHOD 03/01/2025 4:54 AM EDT [facility] Neutrophils % 56 % LAB HEMATOLOGY METHOD 03/01/2025 4:54 AM EDT [facility] Lymphocytes % 25 % LAB HEMATOLOGY METHOD 03/01/2025 4:54 AM EDT [facility] Monocytes % 11 % LAB HEMATOLOGY METHOD 03/01/2025 4:54 AM EDT [facility] Eosinophils % 6 % LAB HEMATOLOGY METHOD 03/01/2025 4:54 AM EDT [facility] Basophils % 1 % LAB HEMATOLOGY METHOD 03/01/2025 4:54 AM EDT [facility] Immature Granulocytes % 1 % LAB HEMATOLOGY METHOD 03/01/2025 4:54 AM EDT [facility] Neutrophils Absolute 3.86 1.60 - 6.10 10*3/uL LAB HEMATOLOGY METHOD 03/01/2025 4:54 AM EDT [facility] Lymphocytes Absolute 1.70 1.20 - 3.90 10*3/uL LAB HEMATOLOGY METHOD 03/01/2025 4:54 AM EDT [facility] Monocytes Absolute 0.74 0.30 - 0.90 10*3/uL LAB HEMATOLOGY METHOD 03/01/2025 4:54 AM EDT [facility] Eosinophils Absolute 0.44 0.00 - 0.50 10*3/uL LAB HEMATOLOGY METHOD 03/01/2025 4:54 AM EDT [facility] Basophils Absolute 0.05 0.00 - 0.10 10*3/uL LAB HEMATOLOGY METHOD 03/01/2025 4:54 AM EDT [facility] Immature Granulocytes Absolute 0.04 0.00 - 0.06 10*3/uL LAB HEMATOLOGY METHOD 03/01/2025 4:54 AM EDT [facility] Blood Venous blood specimen / Unknown Venipuncture / Unknown 03/01/2025 4:08 AM EDT 03/01/2025 4:42 AM EDT Narrative [facility] - 03/01/2025 4:54 AM EDT Therapeutic decision making should be based on absolute values, rather than percentages. us Madonna Singleton MD LAB BLOOD ORDERABLES Final Resul t Performing Organization Address [facility] Co de Phone Number [facility] [address] [place] [address] * Phosphorus, Plasma (03/01/2025 4:08 AM EDT) Only the most recent of4 resultswithin the time period is included. Phosphorus, Plasma 4.4 2.5 - 4.5 mg/dL 03/01/2025 5:14 AM EDT [facility] Blood Venous blood specimen / Unknown Venipuncture / Unknown 03/01/2025 4:08 AM EDT 03/01/2025 4:43 AM EDT us Madonna Singleton MD LAB BLOOD ORDERABLES Final Resul t Performing Organization Address City/[facility]/ZIP Co de Phone Number [facility] [address] [place] [address] * Magnesium, Plasma (03/01/2025 4:08 AM EDT) Only the most recent of5 resultswithin the time period is included. Magnesium, Plasma 2.0 1.9 - 2.4 mg/dL 03/01/2025 5:14 AM EDT [facility] Blood Venous blood specimen / Unknown Venipuncture / Unknown 03/01/2025 4:08 AM EDT 03/01/2025 4:43 AM EDT us Madonna Singleton MD LAB BLOOD ORDERABLES Final Resul t [facility] [address] [place] [address] * (ABNORMAL) Basic Metabolic Panel, Plasma (03/01/2025 4:08 AM EDT) Only the most recent of5 resultswithin the time period is included. Glucose, Plasma 205(H) 74 - 99 mg/dL 03/01/2025 5:14 AM EDT [facility] BUN, Plasma 40(H) 8 - 23 mg/dL 03/01/2025 5:14 AM EDT [facility] Creatinine, Plasma 1.84(H) 0.60 - 1.10 mg/dL 03/01/2025 5:14 AM EDT [facility] BUN/Creatinine Ratio 22 03/01/2025 5:14 AM EDT [facility] Sodium, Plasma 125(L) 136 - 145 mmol/L 03/01/2025 5:14 AM EDT [facility] Potassium, Plasma 4.5 3.6 - 4.9 mmol/L 03/01/2025 5:14 AM EDT [facility] Chloride, Plasma 91(L) 97 - 107 mmol/L 03/01/2025 5:14 AM EDT [facility] CO2, Plasma 23 22 - 29 mmol/L 03/01/2025 5:14 AM EDT [facility] Anion Gap 11 6 - 16 mmol/L 03/01/2025 5:14 AM EDT [facility] Total Calcium, Plasma 8.8(L) 8.9 - 10.2 mg/dL 03/01/2025 5:14 AM EDT [facility] eGFRcr 30.1 mL/min/1.7 3m*2 03/01/2025 5:14 AM EDT [facility] Comment:Reported eGFRcr in m L/min/1.73m2 is based the CKD-EPI 2020 equation that does not use a race coefficient. Blood Venous blood specimen / Unknown Venipuncture / Unknown 03/01/2025 4:08 AM EDT 03/01/2025 4:43 AM EDT us Madonna Singleton MD LAB BLOOD ORDERABLES Final Resul t [facility] [address] [place] [address] * XR Panorex (02/27/2025 12:13 PM EDT) [...] in the posterior aspect of tooth #31. [place] wear in tooth number 8, 9 and 23. No periapical lucency Procedure Note Lucas Cristobal MD - 02/27/2025 CLINICAL INDICATION: Odontogenic infection TECHNIQUE: XR PANOREX COMPARISON: None. FINDINGS: Rounded lucency in tooth #6. Aggressive destruction in the posterioraspect of tooth #31. [place] wear in tooth number 8, 9 and 23. No periapicallucency IMPRESSION: Dental caries in tooth #6 and 31 without abscess. CRITICAL RESULT: No. COMMUNICATION: Per this written report. Drafted by Lucas Cristobal MD on 02/27/2025 12:22 PM Final report signed by Lucas Cristobal MD on 02/27/2025 12:25 PM Ludy Hill MD IMG XR PROCEDURES Final Result * (ABNORMAL) Hemogram (CBC) (02/26/2025 4:51 AM EDT) Only the most recent of2 resultswithin the time period is included. WBC Count 7.59 3.70 - 10.30 10*3/uL LAB HEMATOLOGY METHOD 02/26/2025 5:25 AM EDT [facility] RBC Count 4.00 3.90 - 5.20 10*6/uL LAB HEMATOLOGY METHOD 02/26/2025 5:25 AM EDT [facility] HGB 10.3(L) 11.2 - 15.7 g/dL LAB HEMATOLOGY METHOD 02/26/2025 5:25 AM EDT [facility] HCT 32.3(L) 34.0 - 45.0 % LAB HEMATOLOGY METHOD 02/26/2025 5:25 AM EDT [facility] Platelet Count 375(H) 155 - 369 10*3/uL LAB HEMATOLOGY METHOD 02/26/2025 5:25 AM EDT [facility] MCV 81 79 - 98 fL LAB HEMATOLOGY METHOD 02/26/2025 5:25 AM EDT [facility] MCH 25.8(L) 26.0 - 32.0 pg LAB HEMATOLOGY METHOD 02/26/2025 5:25 AM EDT [facility] MCHC 31.9 30.7 - 35.5 g/dL LAB HEMATOLOGY METHOD 02/26/2025 5:25 AM EDT [facility] RDW 15.5(H) 11.5 - 14.5 % LAB HEMATOLOGY METHOD 02/26/2025 5:25 AM EDT [facility] MPV 8.9 8.8 - 12.5 fL LAB HEMATOLOGY METHOD 02/26/2025 5:25 AM EDT [facility] nRBC 0.0 <=0.0 per 100 WBCs LAB HEMATOLOGY METHOD 02/26/2025 5:25 AM EDT [facility] Blood Venous blood specimen / Unknown Venipuncture / Unknown 02/26/2025 4:51 AM EDT 02/26/2025 5:12 AM EDT us Ludy Hill MD LAB BLOOD ORDERABLES Final Resul t [facility] [address] [place] [address] * (ABNORMAL) Renal function panel (02/26/2025 4:51 AM EDT) Pathologist [facility] Glucose, Plasma 156(H) 74 - 99 mg/dL 02/26/2025 5:54 AM EDT [facility] BUN, Plasma 26(H) 8 - 23 mg/dL 02/26/2025 5:54 AM EDT [facility] Creatinine, Plasma 1.62(H) 0.60 - 1.10 mg/dL 02/26/2025 5:54 AM EDT [facility] BUN/Creatinine Ratio 16 02/26/2025 5:54 AM EDT [facility] Sodium, Plasma 133(L) 136 - 145 mmol/L 02/26/2025 5:54 AM EDT [facility] Potassium, Plasma 4.2 3.6 - 4.9 mmol/L 02/26/2025 5:54 AM EDT [facility] Chloride, Plasma 96(L) 97 - 107 mmol/L 02/26/2025 5:54 AM EDT [facility] CO2, Plasma 24 22 - 29 mmol/L 02/26/2025 5:54 AM EDT [facility] Anion Gap 13 6 - 16 mmol/L 02/26/2025 5:54 AM EDT [facility] Total Calcium, Plasma 8.9 8.9 - 10.2 mg/dL 02/26/2025 5:54 AM EDT [facility] Phosphorus, Plasma 3.8 2.5 - 4.5 mg/dL 02/26/2025 5:54 AM EDT [facility] Albumin, Plasma 3.5 3.5 - 5.2 g/dL 02/26/2025 5:54 AM EDT [facility] eGFRcr 35.1 mL/min/1.7 3m*2 02/26/2025 5:54 AM EDT [facility] Comment:Reported eGFRcr in m L/min/1.73m2 is based the CKD-EPI 2020 equation that does not use a race coefficient. Blood Venous blood specimen / Unknown Venipuncture / Unknown 02/26/2025 4:51 AM EDT 02/26/2025 5:13 AM EDT Ludy Hill MD LAB BLOOD ORDERABLES Final Resul t Performing Organization Address City/[facility]/ZIP Co de Phone Number [facility] [address] [place] [address] * ECG Adult (02/25/2025 6:38 PM EDT) Only the most recent of4 resultswithin the time period is included. EKG DIAGNOSIS CLASS Abnormal MUSE ECG Ventricular Rate 68 BPM MUSE ECG Atrial Rate 68 BPM MUSE ECG VA Interval 198 ms MUSE ECG QRSD Interval 136 ms MUSE ECG QT Interval 450 ms MUSE ECG QTC Interval 478 ms MUSE ECG P [place] 71 degrees MUSE ECG R [place] 265 degrees MUSE ECG T Wave [place] 50 degrees MUSE ECG Diagnosis Sinus rhythm with marked sinus arrhythmia MUSE ECG Diagnosis Right bundle branch block MUSE ECG Diagnosis Abnormal ECG MUSE ECG Diagnosis MUSE ECG Diagnosis Confirmed by Karly Gracia ([id number]) on 02/26/2025 3:20:41 PM MUSE ECG 02/25/2025 6:38 PM EDT 02/26/2025 3:20 PM EDT Ludy Hill MD ECG ORDERABLES Final Result Performing Organization Address City/[facility]/ZIP Co de Phone Number MUSE ECG * (ABNORMAL) Cystatin C (02/25/2025 1:36 AM EDT) Only the most recent of3 resultswithin the time period is included. Cystatin C 2.37(H) 0.61 - 0.95 mg/L 02/25/2025 2:27 AM EDT [facility] Blood Venous blood specimen / Unknown Venipuncture / Unknown 02/25/2025 1:36 AM EDT 02/25/2025 1:57 AM EDT us Daniel Ralph MD LAB BLOOD ORDERABLES Final R esult [facility] [address] [place] [address] * [facility] CRITICAL CARE, E/M 30-74 MINUTES (02/24/2025 7:08 AM EDT) Narrative Daniel Ralph MD - 02/24/2025 7:08 AM EDT Daniel Ralph MD 02/26/2025 4:10 PM Critical Care Performed by: Daniel Ralph MD Authorized by: Daniel Ralph MD Critical care provider statement: Critical [...] hypovolemia in setting of acute illness. us Daniel Ralph MD IN CLINIC/BEDSIDE ORDERABLES Final Result * (ABNORMAL) Ionized calcium, whole blood (02/24/2025 1:01 AM EDT) Ionized Calcium, Whole Blood 4.4(L) 4.6 - 5.1 mg/dL LAB HEMATOLOGY METHOD 02/24/2025 1:14 AM EDT [facility] Blood Venous blood specimen / Unknown Venipuncture / Unknown 02/24/2025 1:01 AM EDT 02/24/2025 1:13 AM EDT Daniel Ralph MD LAB BLOOD ORDERABLES Final R esult Performing Organization Address [facility] Co de Phone Number [facility] [address] [place] [address] * (ABNORMAL) Procalcitonin (02/24/2025 1:01 AM EDT) Only the most recent of2 resultswithin the time period is included. Procalcitonin, Plasma 0.12(H) <0.09 ng/mL 02/24/2025 1:44 AM EDT [facility] Blood Venous blood specimen / Unknown Venipuncture / Unknown 02/24/2025 1:01 AM EDT 02/24/2025 1:06 AM EDT Narrative [facility] - 02/24/2025 1:44 AM [...] predict 28 day mortality risk. Please consult [email or web address] for more information. Test performed at [facility]. us Daniel Ralph MD LAB BLOOD ORDERABLES Final R esult Performing Organization Address [facility]/ZIP Co de Phone Number [facility] [address] [place] [address] * (ABNORMAL) Blood gas panel, venous (02/24/2025 1:01 AM EDT) Only the most recent of5 resultswithin the time period is included. pH, Venous 7.43 7.32 - 7.43 LAB HEMATOLOGY METHOD 02/24/2025 1:19 AM EDT [facility] pCO2, Venous 40 37 - 52 mmHg LAB HEMATOLOGY METHOD 02/24/2025 1:19 AM EDT [facility] pO2, Venous 143(H) 25 - 40 mmHg LAB HEMATOLOGY METHOD 02/24/2025 1:19 AM EDT [facility] SO2, Measured, Venous 98(H) 65 - 80 % LAB HEMATOLOGY METHOD 02/24/2025 1:19 AM EDT [facility] Base Excess, Venous 1.9 -2.0 - 3.0 mmol/L LAB HEMATOLOGY METHOD 02/24/2025 1:19 AM EDT [facility] Bicarbonate, Calculated, Venous 27(H) 22 - 26 mmol/L LAB HEMATOLOGY METHOD 02/24/2025 1:19 AM EDT [facility] Hematocrit, Whole Blood 27.7(L) 34.0 - 45.0 % LAB HEMATOLOGY METHOD 02/24/2025 1:19 AM EDT [facility] Sodium, Whole Blood 132(L) 136 - 145 mmol/L LAB HEMATOLOGY METHOD 02/24/2025 1:19 AM EDT [facility] Potassium, Whole Blood 4.3 3.6 - 4.9 mmol/L LAB HEMATOLOGY METHOD 02/24/2025 1:19 AM EDT [facility] Chloride, Whole Blood 99 97 - 107 mmol/L LAB HEMATOLOGY METHOD 02/24/2025 1:19 AM EDT [facility] Glucose, Whole Blood 154(H) 74 - 99 mg/dL LAB HEMATOLOGY METHOD 02/24/2025 1:19 AM EDT [facility] Lactate, Venous, Whole Blood 0.9 0.5 - 2.2 mmol/L LAB HEMATOLOGY METHOD 02/24/2025 1:19 AM EDT [facility] Ionized Calcium, Whole Blood 4.2(L) 4.6 - 5.1 mg/dL LAB HEMATOLOGY METHOD 02/24/2025 1:19 AM EDT [facility] Blood Venous blood specimen / Unknown Venipuncture / Unknown 02/24/2025 1:01 AM EDT 02/24/2025 1:13 AM EDT us Daniel Ralph MD LAB BLOOD ORDERABLES Final R esult [facility] [address] [place] [address] * (ABNORMAL) Comprehensive metabolic panel (02/24/2025 1:01 AM EDT) Only the most recent of2 resultswithin the time period is included. Glucose, Plasma 152(H) 74 - 99 mg/dL 02/24/2025 1:44 AM EDT [facility] BUN, Plasma 40(H) 8 - 23 mg/dL 02/24/2025 1:44 AM EDT [facility] Creatinine, Plasma 2.04(H) 0.60 - 1.10 mg/dL 02/24/2025 1:44 AM EDT [facility] BUN/Creatinine Ratio 20 02/24/2025 1:44 AM EDT [facility] Sodium, Plasma 132(L) 136 - 145 mmol/L 02/24/2025 1:44 AM EDT [facility] Potassium, Plasma 4.9 3.6 - 4.9 mmol/L 02/24/2025 1:44 AM EDT [facility] Chloride, Plasma 97 97 - 107 mmol/L 02/24/2025 1:44 AM EDT [facility] CO2, Plasma 22 22 - 29 mmol/L 02/24/2025 1:44 AM EDT [facility] Anion Gap 13 6 - 16 mmol/L 02/24/2025 1:44 AM EDT [facility] Total Calcium, Plasma 8.6(L) 8.9 - 10.2 mg/dL 02/24/2025 1:44 AM EDT [facility] Total Protein 6.9 6.3 - 7.9 g/dL 02/24/2025 1:44 AM EDT [facility] Albumin, Plasma 3.3(L) 3.5 - 5.2 g/dL 02/24/2025 1:44 AM EDT [facility] AST, Plasma 16 10 - 35 U/L 02/24/2025 1:44 AM EDT [facility] Comment:Hemolyzed, result ma y be falsely increased. ALT, Plasma 15 10 - 35 U/L 02/24/2025 1:44 AM EDT [facility] Alkaline Phosphatase, Plasma 105 46 - 142 U/L 02/24/2025 1:44 AM EDT [facility] Total Bilirubin, Plasma <0.2(L) 0.2 - 1.1 mg/dL 02/24/2025 1:44 AM EDT [facility] eGFRcr 26.6 mL/min/1.7 3m*2 02/24/2025 1:44 AM EDT [facility] Comment:Reported eGFRcr in m L/min/1.73m2 is based the CKD-EPI 2020 equation that does not use a race coefficient. Blood Venous blood specimen / Unknown Venipuncture / Unknown 02/24/2025 1:01 AM EDT 02/24/2025 1:06 AM EDT Daniel Ralph MD LAB BLOOD ORDERABLES Final R esult Performing Organization Address City/[facility] Co de Phone Number [facility] [address] [place] [address] * Sodium, urine, random (02/23/2025 3:12 PM EDT) Sodium, Urine 31 mmol/L 02/23/2025 4:03 PM EDT [facility] Urine Urine specimen from urinary conduit / Unknown Non-blood Collection / Unknown 02/23/2025 3:12 PM EDT 02/23/2025 3:24 PM EDT Daniel Ralph MD LAB URINE ORDERABLES Final R esult [facility] [address] [place] [address] * Osmolality, urine (02/23/2025 3:12 PM EDT) Osmolality, Urine 408 50 - 1,200 mOsm/kg 02/23/2025 3:59 PM EDT [facility] Urine Urine specimen from urinary conduit / Unknown Non-blood Collection / Unknown 02/23/2025 3:12 PM EDT 02/23/2025 3:23 PM EDT us Daniel Ralph MD LAB URINE ORDERABLES Final R esult Performing Organization Address [facility] [place] [address] * (ABNORMAL) Sodium (02/23/2025 3:04 PM EDT) Only the most recent of4 resultswithin the time period is included. Sodium, Plasma 129(L) 136 - 145 mmol/L 02/23/2025 3:44 PM EDT [facility] Blood Venous blood specimen / Unknown Venipuncture / Unknown 02/23/2025 3:04 PM EDT 02/23/2025 3:13 PM EDT us Daniel Ralph MD LAB BLOOD ORDERABLES Final R esult Performing Organization Address [facility] de Phone Number [facility] [address] [place] [address] * Osmolality (02/23/2025 3:04 PM EDT) Osmolality, Serum 289 280 - 301 mOsm/Kg 02/23/2025 4:11 PM EDT [facility] Blood Venous blood specimen / Unknown Venipuncture / Unknown 02/23/2025 3:04 PM EDT 02/23/2025 3:13 PM EDT us Daniel Ralph MD LAB BLOOD ORDERABLES Final R esult Performing Organization Address [facility] Co de Phone Number [facility] [address] [place] [address] * Streptococcus pneumoniae and Legionella Urinary Antigen (02/23/2025 11:05 AM EDT) Legionella pneumophila serogroup 1 Antigen Result (Urine) Negative Negative 02/24/2025 7:01 AM EDT [facility] Streptococcus pneumoniae Antigen Result (Urine) Negative Negative 02/24/2025 7:01 AM EDT [facility] Urine Urine specimen obtained by clean catch procedure / Unknown Non-blood Collection / Unknown 02/23/2025 11:05 AM EDT 02/23/2025 11:16 AM EDT Daniel Ralph MD LAB MICROBIOLOGY - GENERAL O RDERABLES Final Result [facility] [address] [place] [address] * [facility], E/M 30-74 MINUTES (02/23/2025 9:10 AM EDT) Narrative Daniel Ralph MD - 02/23/2025 9:10 AM EDT Daniel Ralph MD 02/26/2025 4:07 PM Critical Care Performed by: Daniel Ralph MD Authorized by: Daniel Ralph MD Critical care provider statement: Critical [...] optimize respiratory mechanics and volume status. us Daniel Ralph MD IN CLINIC/BEDSIDE ORDERABLES Final Result * Vancomycin, random (02/23/2025 8:34 AM EDT) Only the most recent of2 resultswithin the time period is included. Vancomycin, Random, Plasma 25.9 ug/mL 02/23/2025 9:20 AM EDT [facility] Blood Venous blood specimen / Unknown Venipuncture / Unknown 02/23/2025 8:34 AM EDT 02/23/2025 8:50 AM EDT Daniel Ralph MD LAB BLOOD ORDERABLES Final R esult Performing Organization Address City/[facility]/ZIP Co de Phone Number [facility] [address] [place] [address] * (ABNORMAL) Nasopharyngeal Respiratory Panel (02/23/2025 2:05 AM EDT) Human Rhinovirus/Ent erovirus PCR Result Detected( A) Not Detected 02/23/2025 5:07 AM EDT [facility] Swab Nasopharyngeal structure / Unknown Non-blood Collection / Unknown 02/23/2025 2:05 AM EDT 02/23/2025 3:06 AM EDT Narrative [facility] - 02/23/2025 5:07 AM [...] Respiratory PCR Panel is performed using the Three Melonslex instrument. This test is FDA approved for use with Nasopharyngeal swabs only. This test is used for clinical purposes. It should not be regarded as investigational or for research. The [facility] Clinical Microbiology Laboratory is certified under the Clinical Laboratory Improvement Amendments of 1988 (CLIA-88) as qualified to perform high complexity clinical laboratory testing. Daniel Ralph MD LAB MICROBIOLOGY - GENERAL O RDERABLES Final Result Performing Organization Address [facility] [place] [facility]/ZIP Co de Phone Number [facility] [address] [place] [address] * (ABNORMAL) Methicillin Resistant Staphylococcus aureus (MRSA) by PCR (02/23/2025 2:05 AM EDT) Methicillin Resistant Staphylococcus aureus (MRSA) by PCR Detected( A) Not Detected 02/23/2025 4:19 AM EDT [facility] Swab Both anterior nares / Unknown Non-blood Collection / Unknown 02/23/2025 2:05 AM EDT 02/23/2025 3:06 AM EDT Narrative [facility] - 02/23/2025 4:19 AM EDT This test is FDA approved for use with nares swab specimens using the eSwabs. This test is used for clinical purposes. It should not be regarded as investigational or for research. This laboratory is certified under the Clinical Laboratory improvement Amendments of 1988 (CLIA-88 as qualified to perform high complexity clinical laboratory testing. us Daniel Ralph MD LAB MICROBIOLOGY - GENERAL O RDERABLES Final Result Performing Organization Address [facility] [place] [facility] Co de Phone Number [facility] [address] [place] [address] * (ABNORMAL) Troponin T, High Sensitivity, 2 Hour, Plasma (02/23/2025 2:04 AM EDT) Pathologist [facility] Troponin T, High Sensitivity, 2 Hour 37(H) <14 ng/L 02/23/2025 2:52 AM EDT [facility] Troponin Delta Interpretation Not Calculated 02/23/2025 2:52 AM EDT [facility] Comment:Specimen not collect ed within acceptable timeframe. Delta will not be calculated. Blood Venous blood specimen / Unknown Venipuncture / Unknown 02/23/2025 2:04 AM EDT 02/23/2025 2:24 AM EDT us Daniel Ralph MD LAB BLOOD ORDERABLES Final R esult Performing Organization Address [facility] [place] [facility] Co de Phone Number [facility] [address] [place] [address] * Anti Xa Level Low Molecular Weight (02/23/2025 2:04 AM EDT) Pathologist [facility] Anti Xa Level Low Molecular Weight Heparin 1.12 <2.00 IU/mL LAB COAGULATION METHOD 02/23/2025 2:44 AM EDT [facility] Blood Venous blood specimen / Unknown Venipuncture / Unknown 02/23/2025 2:04 AM EDT 02/23/2025 2:24 AM EDT Narrative [facility] - 02/23/2025 2:44 AM EDT Therapeutic Range: LMWH enoxaparin 1mg/kg/dose, 12hrs - peak (3-5 hours after dose): 0.5 - 1.0 IU/mL LMWH enoxaparin 1.5mg/kg/dose, 24hrs - peak (3-5 hours after dose): 1.0 - 2.0 IU/mL LMWH enoxaparin prophylaxis: Not established Daniel Ralph MD LAB BLOOD ORDERABLES Final R esult Performing Organization Address [facility] [place] [facility] Co de Phone Number [facility] [address] [place] [address] * (ABNORMAL) Troponin T, High Sensitivity, 0 Hour Plasma, Reflex to 2 Hour (02/23/2025 12:05 AM EDT) Troponin T, High Sensitivity, 0 Hour 40(H) <14 ng/L 02/23/2025 12:44 AM EDT [facility] Blood Venous blood specimen / Unknown Venipuncture / Unknown 02/23/2025 12:05 AM EDT 02/23/2025 12:17 AM EDT Daniel Ralph MD LAB BLOOD ORDERABLES Final R esult Performing Organization Address [facility] [place] [facility] Co de Phone Number [facility] [address] [place] [address] * (ABNORMAL) Quantitative BAL/PAL/Bronch Wash Culture and Gram StainProtected Alveolar Lavage (02/23/2025 12:00 AM EDT) Culture [id number] CFU/mL Mixed upper respiratory breonna(A) 02/24/2025 12:09 PM EDT [facility] Comment:The organism value f or this result has been updated. These results have been appended to the previously preliminary verified report. Gram Stain Result Numerous Polymorphonuclear leukocytes(A) 02/24/2025 12:09 PM EDT [facility] Gram Stain Result Numerous Gram positive cocci in pairs(A) 02/24/2025 12:09 PM EDT [facility] Gram Stain Result Moderate Gram positive cocci in clusters(A) 02/24/2025 12:09 PM EDT [facility] Gram Stain Result Moderate Gram positive rods(A) 02/24/2025 12:09 PM EDT [facility] Protected Alveolar Lavage (Protected Alveolar Lavage) 02/23/2025 12:00 AM EDT 02/23/2025 1:17 AM EDT us Daniel Ralph MD LAB MICROBIOLOGY - GENERAL O RDERABLES Final Result [facility] [address] [place] [address] * (ABNORMAL) N-Terminal Probnp (02/22/2025 10:03 PM EDT) Only the most recent of2 resultswithin the time period is included. N-Terminal, PROBNP, Plasma 1,542(H) 0 - 899 pg/mL 02/22/2025 10:48 PM EDT [facility] Blood Venous blood specimen / Unknown Venipuncture / Unknown 02/22/2025 10:03 PM EDT 02/22/2025 10:11 PM EDT us Bboby Parra MD LAB BLOOD ORDERABLES Final R esult [facility] [address] [place] [address] * Maira auris Surveillance by PCR (02/22/2025 10:02 PM EDT) Maira auris PCR Result Not Detected Not Detected 02/24/2025 7:03 AM EDT [facility] Swab (Axilla and Groin) Non-blood Collection / Unknown 02/22/2025 10:02 PM EDT 02/22/2025 10:16 PM EDT Narrative [facility] - 02/24/2025 7:03 AM EDT This PCR assay was developed and its performance characteristics determined by [facility] as appropriate for clinical purposes. This assay has not been cleared or approved by the FDA, but is performed in a CLIA regulated laboratory that is qualified to perform high-complexity testing. Bboby Parra MD LAB MICROBIOLOGY - GENERAL O RDERABLES Final Result Performing Organization Address [facility] [place] [facility]/ZIP Co de Phone Number [facility] [address] [place] [address] * (ABNORMAL) Multi Drug Resistance Test (02/22/2025 10:02 PM EDT) Culture Methicillin-Resist ant Staphylococcus aureus(AA) 02/24/2025 6:58 AM EDT [facility] Swab (Nares and Samantha Rectal) Non-blood Collection / Unknown 02/22/2025 10:02 PM EDT 02/22/2025 10:16 PM EDT Narrative [facility] - 02/24/2025 6:58 AM EDT This test was developed and its performance characteristics determined by the [facility] Clinical Microbiology Laboratory. Although the media is FDA-approved, it is not FDA-approved for all specimen types submitted. The FDA has determined that such clearance or approval is not necessary. This test is used for surveillance purposes. It should not be regarded as investigational or for research. The [facility] Clinical Microbiology Laboratory is certified under the Clinical Laboratory Improvement Amendments of 1988 (CLIA-88) as qualified to perform high complexity clinical laboratory testing. Bobby Parra MD LAB MICROBIOLOGY - GENERAL O RDERABLES Final Result Performing Organization Address City/[facility]/ZIP Co de Phone Number [address] [address] * Drug abuse screen (02/22/2025 10:01 PM EDT) Amphetamine Screen Urine Negative Cutoff: 500 ng/mL 02/23/2025 12:22 AM EDT [facility] Benzodiazepines Screen Urine Negative Cutoff: 200 ng/mL 02/23/2025 12:22 AM EDT [facility] Cannabinoid Screen Urine Negative Cutoff: 50 ng/mL 02/23/2025 12:22 AM EDT [facility] Cocaine Screen Urine Negative Cutoff: 300 ng/mL 02/23/2025 12:22 AM EDT [facility] Barbiturate Screen Urine Negative Cutoff: 200 ng/mL 02/23/2025 12:22 AM EDT [facility] Opiate Screen Urine Negative Cutoff: 300 ng/mL 02/23/2025 12:22 AM EDT [facility] Methadone Screen Urine Negative Cutoff: 300 ng/mL 02/23/2025 12:22 AM EDT [facility] Buprenorphine Screen Urine Negative Cutoff: 10 ng/mL 02/23/2025 12:22 AM EDT [facility] Fentanyl Screen Urine Presumptive positive. Confirmation by LC-MS/MS to follow. Cutoff: 1 ng/mL 02/23/2025 12:22 AM EDT [facility] Oxycodone Screen Urine Negative Cutoff: 100 ng/mL 02/23/2025 12:22 AM EDT [facility] Urine Urine specimen obtained by clean catch procedure / Unknown Non-blood Collection / Unknown 02/22/2025 10:01 PM EDT 02/22/2025 10:11 PM EDT Daniel Gordillo MD LAB URINE ORDERABLES Final Result [facility] [address] [place] [address] * (ABNORMAL) Fentanyl Urine Confirm (02/22/2025 10:01 PM EDT) Fentanyl 1(H) <1 ng/mL 02/24/2025 9:18 AM EDT [facility] Norfentanyl 2(H) <2 ng/mL 02/24/2025 9:18 AM EDT [facility] Urine Urine specimen obtained by clean catch procedure / Unknown Non-blood Collection / Unknown 02/22/2025 10:01 PM EDT 02/22/2025 10:11 PM EDT Narrative [facility] - 02/24/2025 9:18 AM EDT Drug analysis is confirmed by LC-MS/MS (LC Tandem Mass Spectrometry) on Urine specimens. This test was developed and its performance characteristics determined by [facility]. It has not been cleared or approved by the FDA. The laboratory is regulated under CLIA as qualified to perform high-complexity testing. This test is used for clinical purposes. Testing is performed at the [facility], Special Chemistry Laboratory. Daniel Gordillo MD LAB URINE ORDERABLES Final Result Performing Organization Address City/[facility] Co de Phone Number [address] [address] * (ABNORMAL) Urine Culture (02/22/2025 10:01 PM EDT) Only the most recent of3 resultswithin the time period is included. Pathologist [facility] Culture 100 CFU/mL Normal Urogenital Breonna(A) 02/24/2025 6:58 AM EDT [facility] Urine Urine specimen obtained by clean catch procedure / Unknown Non-blood Collection / Unknown 02/22/2025 10:01 PM EDT 02/22/2025 10:14 PM EDT Bobby Parra MD LAB MICROBIOLOGY - GENERAL O RDERABLES Final Result Performing Organization Address [facility] [place] [facility] Co de Phone Number [address] [address] * (ABNORMAL) POCT arterial blood gas gem (02/22/2025 9:05 PM EDT) pH, Arterial 7.45(H) 7.31 - 7.42 02/22/2025 9:06 PM EDT [facility] pCO2, Arterial 37 35 - 48 mm Hg 02/22/2025 9:06 PM EDT [facility] pO2, Arterial 86 >80 mm Hg 02/22/2025 9:06 PM EDT [facility] SO2, Arterial 98 94 - 98 % 02/22/2025 9:06 PM EDT [facility] FIO2 60.0 % 02/22/2025 9:06 PM EDT [facility] Base Excess, Arterial 1.7 -2 - 3 mmol/L 02/22/2025 9:06 PM EDT [facility] HCO3, Arterial 25.7 22 - 26 mmol/L 02/22/2025 9:06 PM EDT [facility] Total Hemoglobin, Arterial, Whole Blood 9.1(L) 11.2 - 15.7 g/dL 02/22/2025 9:06 PM EDT [facility] Hematocrit, Arterial 27.0(L) 34.0 - 45.0 % 02/22/2025 9:06 PM EDT [facility] Sodium, Arterial 125(L) 136 - 145 mmol/L 02/22/2025 9:06 PM EDT [facility] Potassium, Arterial 4.9 3.6 - 4.9 mmol/L 02/22/2025 9:06 PM EDT [facility] Comment:Hemolyzed, result ma y be falsely increased. Chloride, Whole Blood 95(L) 97 - 107 mmol/L 02/22/2025 9:06 PM T [facility] Glucose, Arterial 116(H) 74 - 99 mg/dL 02/22/2025 9:06 PM T [facility] Ionized Calcium, Arterial 4.8 4.6 - 5.1 mg/dL 02/22/2025 9:06 PM EDT [facility] Lactate, Arterial 0.8 0.5 - 1.6 mmol/L 02/22/2025 9:06 PM EDT [facility] Body Temperature 37.0 Celsius 02/22/2025 9:06 PM T [facility] pH, Temp Corrected, Arterial 7.45(H) 7.31 - 7.42 02/22/2025 9:06 PM EDT [facility] pCO2, Temp Corrected, Arterial 37 35 - 48 mm Hg 02/22/2025 9:06 PM EDT [facility] pO2, Temp Corrected, Arterial 86 >80 mm Hg 02/22/2025 9:06 PM EDT [facility] Veterinary Medical Officer ID Slim Morton 02/22/2025 9:06 PM T [facility] Blood, Arterial Whole blood specimen / Unknown 02/22/2025 9:05 PM EDT 02/22/2025 9:06 PM EDT us Daniel Ralph MD LAB POINT OF CARE TE ST DOCKED DEVICE UNSOLICITED RESULTS Final Result Performing Organization Address [facility] [place] [facility] Co de Phone Number [facility] [address] [place] [address] * Blood Culture (Aerobic/Anaerobet Set) (02/22/2025 8:55 PM EDT) Culture No growth at day 5 02/27/2025 10:01 PM EDT [facility] Blood Structure of right hand / Unknown Venipuncture / Unknown 02/22/2025 8:55 PM EDT 02/22/2025 9:29 PM EDT Narrative [facility] - 02/27/2025 10:01 PM EDT Low blood volume submitted, results may be compromised us Daniel Gordillo MD LAB MICROBIOLOGY - GENERAL ORDERABLES Final Result Performing Organization Address [facility] Co de Phone Number [facility] [address] [place] [address] * Ionized calcium, serum (02/22/2025 8:36 PM EDT) Ionized Calcium, Serum 4.8 4.6 - 5.3 mg/dL LAB HEMATOLOGY METHOD 02/22/2025 9:42 PM EDT [facility] Blood Venous blood specimen / Unknown Venipuncture / Unknown 02/22/2025 8:36 PM EDT 02/22/2025 8:53 PM EDT us Bobby Parra MD LAB BLOOD ORDERABLES Final R esult Performing Organization Address City/[facility] Co de Phone Number [facility] [address] [place] [address] * XR Chest 1 View (02/22/2025 7:05 [...] Yoder MD on 02/22/2025 7:46 PM us Daniel Gordillo MD IMG XR PROCEDURES Final Res ult [...] Jin Yoder MD on 02/22/2025 7:46 PM Daniel Gordillo MD IMG XR PROCEDURES Final Res ult * Ethyl Alcohol Plasma (02/22/2025 6:41 PM EDT) Ethanol Plasma <10 <10 mg/dL 02/22/2025 8:13 PM EDT [facility] Blood Venous blood specimen / Unknown Venipuncture / Unknown 02/22/2025 6:41 PM EDT 02/22/2025 8:00 PM EDT Narrative [facility] - 02/22/2025 8:13 PM EDT Enzymatic Assay: Performed on Hector Rufus. Daniel Gordillo MD LAB BLOOD ORDERABLES Final Result Performing Organization Address City/[facility]/ZIP Co de Phone Number [facility] [address] [place] [address] * Thyroid Stimulating Hormone, Plasma (02/22/2025 6:41 PM EDT) Thyroid Stimulating Hormone, Plasma 1.03 0.40 - 4.20 uIU/mL 02/22/2025 7:24 PM EDT [facility] Blood Venous blood specimen / Unknown Venipuncture / Unknown 02/22/2025 6:41 PM EDT 02/22/2025 6:47 PM EDT Daniel Gordillo MD LAB BLOOD ORDERABLES Final Result [facility] [address] [place] [address] * Free T4, Plasma (02/22/2025 6:41 PM EDT) Free T4, Plasma 1.3 0.8 - 1.7 ng/dL 02/22/2025 7:24 PM EDT [facility] Blood Venous blood specimen / Unknown Venipuncture / Unknown 02/22/2025 6:41 PM EDT 02/22/2025 6:47 PM EDT Daniel Gordillo MD LAB BLOOD ORDERABLES Final Result Performing Organization Address [facility] Co de Phone Number [facility] [address] [place] [address] * (ABNORMAL) Hemoglobin A1c (02/22/2025 6:41 PM EDT) Hemoglobin A1c 9.2(H) <5.7 % 02/23/2025 1:40 PM EDT [facility] Blood Venous blood specimen / Unknown Venipuncture / Unknown 02/22/2025 6:41 PM EDT 02/22/2025 6:47 PM EDT Narrative [facility] - 02/23/2025 1:40 PM EDT HA1C Interpretive Data: Diagnosis of Diabetes: Diabetic > or = 6.5% Pre-diabetic 5.7 to 6.4% Non-diabetic < or = 5.6% Glycemic Targets for Type I and Type II Diabetics: Non- Adults <7.0% Adults <6.0% Children and Adolescents <7.5% Source: [place] [employer]. Standards of medical care in diabetes,2017. Diabetes Care.2017:40 (suppl 1):S1-S135. Bobby Parra MD LAB BLOOD ORDERABLES Final R esult Performing Organization Address City/[facility] Co de Phone Number [facility] [address] [place] [address] * (ABNORMAL) POCT venous blood gas gem (02/22/2025 6:37 PM EDT) pH, Venous 7.28(L) 7.32 - 7.43 02/22/2025 6:38 PM EDT [facility] pCO2, Venous 60(HH) 37 - 52 mm Hg 02/22/2025 6:38 PM [facility]T [facility] pO2, Venous 41(H) 25 - 40 mm Hg 02/22/2025 6:38 PM EDT [facility] SO2, Venous 72 65 - 80 % 02/22/2025 6:38 PM EDT [facility] Base Excess/Deficit, Venous 0.8 -2 - 3 mmol/L 02/22/2025 6:38 PM EDT [facility] HCO3, Venous 28.2(H) 22 - 26 mmol/L 02/22/2025 6:38 PM EDT [facility] Hemoglobin, Venous 9.2(L) 11.2 - 15.7 g/dL 02/22/2025 6:38 PM T [facility] Hematocrit, Venous 28.0(L) 34.0 - 45.0 % 02/22/2025 6:38 PM EDT [facility] Sodium, Venous 126(L) 136 - 145 mmol/L 02/22/2025 6:38 PM EDT [facility] Potassium, Venous 4.6 3.6 - 4.9 mmol/L 02/22/2025 6:38 PM EDT [facility] Comment:Hemolyzed, result ma y be falsely increased. POCT Chloride, Venous 94(L) 97 - 107 mmol/L 02/22/2025 6:38 PM T [facility] Glucose, Venous 139(H) 74 - 99 mg/dL 02/22/2025 6:38 PM EDT [facility] Ionized Calcium, Venous 4.9 4.6 - 5.1 mg/dL 02/22/2025 6:38 PM T [facility] Lactate, Venous 0.6 0.5 - 2.2 mmol/L 02/22/2025 6:38 PM EDT [facility] Body Temperature 37.0 Celsius 02/22/2025 6:38 PM T [facility] pH, Temp Corrected, Venous 7.28(L) 7.32 - 7.43 02/22/2025 6:38 PM EDT [facility] pCO2, Temp Corrected, Venous 60(HH) 37 - 52 mm Hg 02/22/2025 6:38 PM EDT [facility] pO2, Temp Corrected, Venous 41(H) 25 - 40 mm Hg 02/22/2025 6:38 PM EDT [facility] Veterinary Medical Officer ID Joao Jackson 02/22/2025 6:38 PM EDT [facility] Blood, Venous Whole blood specimen / Unknown 02/22/2025 6:37 PM EDT 02/22/2025 6:38 PM EDT Generic Provider Poct LAB POINT OF CARE TEST DOCKED DEVICE UNSOLICITED RESULTS Final Result [facility] [address] [place] [id number] * INTUBATION (02/22/2025 6:13 PM EDT) Narrative Daniel Gordillo MD - 02/22/2025 6:13 PM EDT Daniel Gordillo MD 02/25/2025 9:50 PM Intubation Performed by: Leon Wallace DO Authorized by: Daniel Gordillo MD Consent: Consent obtained: Emergent situation Consent [...] Appropriate position Post-procedure details: Procedure completion: Tolerated Daniel Gordillo MD IN CLINIC/BEDSIDE ORDERABLE S Final Result * XR OUTSIDE IMAGES (02/22/2025 12:54 PM EDT) Anatomical Region Laterality Modality Radiographic Alysa ging 02/22/2025 12:5 4 PM EDT Jordan Carl MD IMG XR PROCEDURES Final Result * CT OUTSIDE IMAGES (02/22/2025 12:48 PM EDT) Only the most recent of3 resultswithin the time period is included. Anatomical Region Laterality Modality Computed Tomogra phy 02/22/2025 12:4 8 PM EDT Jordan Carl MD IMG CT PROCEDURES Final Result * FL Less than 1 Hour Intraoperative [...] MICROBIOLOGY - GENERAL O RDERABLES Final Result [facility] [address] [place] [address] * VA AN ELECTIVE ENDOTRACHEAL AIRWAY, PB ANESTHESIA PLACEHOLDER (01/31/2025 9:58 AM EDT) Narrative Migue Seay CRNA - 01/31/2025 9:58 AM EDT Migue Seay CRNA 01/31/2025 10:45 AM Airway Date/Time: 01/31/2025 9:58 AM Reason: elective Airway not difficult General Information and Staff Patient location during procedure: OR HAZMAT TECHNICIAN: Migue Seay CRNA Performed: HAZMAT TECHNICIAN Patient Condition Indications for airway management: anesthesia [...] following split bolus administration of IV contrast, [id number], 150 mL. Reformatted images in the coronal [...] MD on 01/03/2025 3:33 PM Cayla Erazo MARKETING COMMUNICATIONS ASSOCIATE, DNP IMG CT PROCEDURES Final Result * [...] are demonstrated at the levels of the RESOURCE CENTER TEACHER, FEATHER BALER and DPA. Segmental pressures are within normal limits with a FEATHER BALER JASEN of 0.98 (138 mmHg) and a DPA JASEN of 1.28 (181 mmHg). Digit pressures are 115 mmHg. Left: AKA is noted. Multiphasic waveforms are demonstrated at the level of the RESOURCE CENTER TEACHER. 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 COMPARISON: None. FINDINGS: Right: Multiphasic waveforms are demonstrated at the levels of the RESOURCE CENTER TEACHER,FEATHER BALER and DPA. Segmental pressures are within normal limits with a FEATHER BALER ABIof 0.98 (138 mmHg) and a DPA JASEN of 1.28 (181 mmHg). Digit pressures [id number] mmHg. Left: AKA is noted. Multiphasic waveforms are demonstrated at the level ofthe RESOURCE CENTER TEACHER. IMPRESSION: Right: Normal study; No evidence of [...] Jennifer Parkinson MD on 01/01/2025 7:09 AM us Karly Gracia MD CV VASCULAR [...] MD CV VASCULAR PROCEDURES Final Result * INJECTION FOR BLADDER XRAY WITHOUT VOIDING, VA COMPLEX CYSTOMETROGRAM W/VOID PRESS&URETHRAL PROFILE, UROLOGY UDS WITH BASE PERFORMABLE CHARGES (12/20/2024 10:28 AM EDT) Narrative Cayla Erazo APRN, DNP - 12/20/2024 10:28 AM EDT Cayla Erazo APRN, DNP 01/04/2025 2:40 PM UDS Date/Time: 12/20/2024 10:28 AM Performed by: Cayla Erazo APRN, DNP Authorized by: Cayla Erazo APRN, DNP [place] Protocol: Time out called at: 12/20/2024 10:28 [...] is no recent study available for direct [id number] comparison. Karly Gracia MD CV ECHO PROCEDURES Final Resu lt * Hepatitis C Antibody - ED (08/15/2024 5:35 AM EST) Hepatitis C Antibody Negative Negative 08/15/2024 7:08 AM EST [facility] Blood Venous blood specimen / Unknown Venipuncture / Unknown 08/15/2024 5:35 AM EST 08/15/2024 6:06 AM EST Marcy Zhong MD LAB BLOOD ORDERABLES Final Resu lt [facility] [address] [place] [address] * Cytology (04/10/2013 12:00 AM EDT) Specimen from axilla structure obtained by fine needle aspiration biopsy (specimen) 04/10/2013 04/10/2013 2:2 3 PM EDT Narrative [facility] - 04/10/2013 3:59 PM EDT [facility] MR #: [id number] [facility] [place] [id number] (Age: 52) FW Collect Date: 04/10/2013 00:00 Receipt Date: 04/10/2013 14:23 Page 1 DEPARTMENT OF PATHOLOGY AND LABORATORY MEDICINE CYTOPATHOLOGY REPORT Email: [email or web address] ATTENDING MD/Practitioner: Kimmie Aguilera MD Service: BCC [...] RECEPTOR POSITIVE STATUS (ER POSITIVE) F: A; 01485 ASP INTER, 12551, 82069 SNOMED CODES: A; I42790 J37130 X77014 Q01902 F86639 PG0548 P1149 [id number] A resident has participated in this service. A pathologist has performed and is responsible for the reported pathologic evaluation. 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 Yes Care Teams Insurance Processing Clerk Relationship Specialty Start Date End Date Vignesh Pickens MD [address] [place] [address] PCP - General 12/31/24 Cayla Erazo, MARKETING COMMUNICATIONS ASSOCIATE, DNP [address] [place] [address] Nurse Practitioner Urology 12/20/24
--- OUTSIDE RECORDS SUMMARY | 2025-03-04 05:59 | XMS_ITS | Encounter Summary ---
Author Organization [facility] Address [address] [place] [address] Care Team Providers Care Employee Relations Assistant Name Role Phone Cayla Erazo APRN, DNP Unavailable [phone] Vignesh Pickens MD Primary Care Provider [phone] Encounter Details Date Type Department Care Team (Late st Contact Info) Description 01/16/2025 Telephone [facility] [address] [place] [address] Ceci Mitchell MD [address] [place] [address] Social History Tobacco Use Types [...] drink first t rodríguez in the morning (EYE-CIGAR HEAD HOLER) to steady your nerves or to get [...] - 01/16/2025 10:36 AM EDT Spoke with [facility] , scheduled 01/31 surgery with 8am arrival [...] [facility] Urology [address] [place] [address] Doug Chapman MD [address] [facility] [place] [address] 03/27/2025 10:30 AM EDT Appointment [facility] Ultrasound [address], [address]nd [place] [address] 03/27/2025 11:50 AM EDT Clinical Support Medical Office Building Lab [address] [place] [address] 03/27/2025 1:00 PM EDT Office Visit Medical Office Building Urology [address] [facility], [address] [place] [address] Cayla Erazo APRN, FREDERICK [address] [facility] [address] [place] [address] 05/16/2025 8:00 AM EDT Office Visit [facility] [place] [address] [facility], [address] [place] [address] Karly Gracia MD [address] [place] [address] 06/07/2025 1:00 PM EDT Office Visit [facility] [address] [place] [address] Tom Iraheta MD [address] [place] [address] documented as of this encounter [...] documented as of this encounter Care Teams Employee Relations Assistant Relationship Specialty Start Date End Date Vignesh Pickens MD [address] [place] [address] PCP - General 12/31/24 Cayla Erazo APRN, DNP [address] [place] [address] Nurse Practitioner Urology 12/20/24 documented as of this encounter
--- OUTSIDE RECORDS SUMMARY | 2025-03-04 06:00 | XMS_ITS | Encounter Summary ---
Author Organization [facility] Address [address] [place] [address] Care Team Providers Care Chief Nuclear Medicine Technologist Name Role Phone Cayla Erazo APRN, DNP Unavailable [phone] Vignesh Pickens MD Primary Care Provider [phone] Encounter Details Date Type Department Care Team (Late st Contact Info) Description 01/23/2025 Telephone [facility] [address], [address] [place] [address] Ceci Mitchell MD [address] [place] [address] Social History Tobacco Use Types [...] drink first t rodríguez in the morning (EYE-CLINICAL CYTOGENETICIST) to steady your nerves or to get [...] 03/07/2025 10:00 AM EDT Office Visit [facility] Urology [address] [place] [address] Doug Chapman MD [id number] [place] [address] 03/27/2025 10:30 AM EDT Appointment [facility] Ultrasound [address], [address] [place] [address] 03/27/2025 11:50 AM EDT Clinical Support Medical Office Building Lab [address] [place] [address] 03/27/2025 1:00 PM EDT Office Visit Medical Office Building Urology [address] [facility], [address] [place] [address] Cayla Erazo, CLOUD PHYSICIST, DNP [address] [facility] [address] [place] [address] 05/16/2025 8:00 AM EDT Office Visit [facility] [place] [address] [facility], [address] [place] [address] Karly Gracia MD [address] [place] [address] 06/07/2025 1:00 PM EDT [facility] [address] [place] [address] Tom Iraheta MD [address] [place] [address] documented as of this encounter [...] documented as of this encounter Care Teams Chief Nuclear Medicine Technologist Relationship Specialty Start Date End Date Vignesh Pickens MD [address] [place] [address] PCP - General 12/31/24 Cayla Erazo APRN, DNP [address] [place] [address] Nurse Practitioner Urology 12/20/24 documented as of this encounter
--- OUTSIDE RECORDS SUMMARY | 2025-03-04 06:00 | XMS_ITS | Data Portability ---
Author Organization [place] [facility] Address [address] [facility] [address] [place] [address] Assessment No assessment recorded. Plan of Treatment [...] 08/11/2022 XR, knee, 3 view [place] [facility] Claudia ma [address] [address] Patikvng t Name: ZEV Peñaloza LATONIAHENOK YOANNA [...] Franky wray MD on 2021 10:53 AM [email or web address] [facility] Radiology [place] [address], [place], [address], 08/19/2022 08:22:02 09/01/19 23 09/01/2022 MRI, knee, w/wo contr ast [place] [facility] [address] [facility] [place] [address] Patien t Name: ZEV TRAORE CK Patien [...] admini strati on of 10cc Gadavi st ([facility] [address]- 0325-0 2), there is conflu ent periph [...] Franky wray MD on 023 12:20 PM [id number] [facility] Radiology [facility] [address] [place] [address], [address], 09/22/2022 08:42:27 09/01/19 23 09/01/2022 MRI, knee, w/wo contr ast [address] [address] ADDE NDUM #1 Patien t Name: ZEV [...] admini strati on of 10cc Gadavi st ([facility] [address]- 0325-0 2), there is conflu ent periph [...] Franky wray MD on 023 12:20 PM [email or web address] [facility] Radiology [facility] [address] [place], [address], 09/22/2022 08:42:28 09/27/19 24 09/27/2023 [facility] [address] [facility] [place] [address] Luis t Name: ZEV stoner : [phone] [...] wray MD on 09/27/19 24 3:46 PM [facility] Radiology [place] [address] , [place], [address], 09/28/2023 16:18:54 Result Notes Documentation Provider Name and Address Organization Details Recorded Time Xr, Knee, 3 View : [facility] [address] [place] [address] Patient Name: EILEEN MAY Patient : 1960 [...] By: Arthur Pepe MD HI HOUGH PA-C [address] [place] [address], [address], [facility] 08/19/2022 08:22:02 Mri, Knee, W/wo Contrast : [facility] [address] [place] [address] ADDENDUM #1 Patient Name: EILEEN MAY Patient [...] AP. After intravenous administration of 10cc Gadavist ([facility] [address]-10), there is confluent peripheral enhancement of this [...] By: Arthur Pepe MD HI HOUGH PA-C [address] [place] [address], [address], [facility] 09/22/2022 08:42:28 Mri, Knee, W/wo Contrast : [address] [address] Patient Name: EILEEN MAY Patient : 1960 Patient Ordering Provider: SARAHI HOUGH EXAM DATE: 09/01/2022 EXAM: [facility] KNEE MARS W/WO CONTRAST HISTORY: 62-year-old [...] AP. After intravenous administration of 10cc Gadavist ([facility] [address]-69), there is confluent peripheral enhancement of this [...] Arthur Pepe MD HI HOUGH PA-C [address] [place], [address], [facility] 09/22/2022 08:42:27 Xr, Knee, 3 View : [facility] [address] [place] [address] Patient Name: EILEEN MAY Patient : 1960 [...] Interpreted By: Arthur Pepe MD STORY PA-C [address] [place] [address], [address], [facility] 09/28/2023 16:18:54 Problems Name Problem SNOMED Code Status Onset Date Resolution Date Notes Provider Name and Address Organization Details Recorded Time Prostheti c joint infection 657968957 Active 2015 From Automated Load;Prov ider: Suzie Guerrier;St atus: Active Gayle Mckeon [facility] 4 08:21:42 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 From Automated Load;Prov ider: Suzie Guerrier;St atus: Active Gayle Mckeon [facility] 4 08:21:42 Type 2 diabetes mellitus without complicat ion 506391785 Active 2015 From Automated Load;Prov ider: Pooja Ricketts; Status: Active Gayle Mckeon [facility] 4 08:21:42 Hypertens qiana disorder 91282078 Active 2015 From Automated Load;Prov ider: Pooja Ricketts; Status: Active Gayle Mckeon [facility] 4 08:21:42 Venous embolism 428828268 Active 2015 From Automated Load;Prov ider: Pooja Ricketts; Status: [facility] 4 08:21:42 Deep venous thrombosi s of lower extremity 114956416 Active 2015 From Automated Load;Prov ider: Pooja Ricketts; Status: Active [facility] 4 08:21:42 Anemia 290425569 Active 2015 From Automated Load;Prov ider: Aislinn Robin;St atus: Active Gayle Mckeon [facility] 4 08:21:42 Coronary arteriosc lerosis in [place] artery 777046216487 7 Active 2015 From Automated Load;Prov ider: Aislinn Robin; atus: [facility] 4 08:21:41 Prostheti c joint infection 663867790 [place] [address] [place] [address], [address], [facility] 4 11:50:07 Problem Notes None recorded. Procedures Surgical History Date Name Laterality Status Provider Name and Address Organization Details Recorded Time 4 Aspiration Joint/Bursa, Major completed LISA STORY PA-C [address] [place], [address], [facility] 09/27/2023 16:07:18 Imaging Results None recorded. Procedure Notes None recorded. Medical Equipment None Reported. Allergies Allergen ID Allergen Name Allergen Category Reaction Reaction Severity Criticality Documentation Date Start Date Code Code System Note Provider Name and Address Organization Details Recorded Time 482221 Substance with sulfonami de structure and antibacte rial mechanism of action (substanc e) medicatio n Not available Not available Not available 07/16/20162015 25377 8003 SNOMED Comme nt: Creat ed By: Simone salinas;Cre ated Date: 2015 2:50: 12 PM; Not Available [facility] 6 09:33:23 276780 Wellbutri n medicatio n Not available Not available Not available 07/16/20162015 12544 RxNorm Comme nt: Creat ed By: Simone salinas;Cre ated Date: 2015 2:50: 46 PM; Not Available [facility] 6 09:47:17 406443 acetamino phen / hydrocodo ne medicatio n Not available Not available Not available 07/16/20162015 74465 2 RxNorm Comme nt: Creat ed By: Simone salinas;Cre ated Date: 2015 2:50: 59 PM; Not Available [facility] 6 09:47:18 977077 Ultram medicatio n Not available Not available Not available 07/16/20162015 00296 6 RxNorm Comme nt: Creat ed By: Simone lockhartCre ated Date: 2015 2:51: 14 PM; Not Available [facility] 6 10:10:25 Medications Name Sig Start Date [...] for 10 days. 08/11 completed Mailed to [facility] , [address] [place] [address] Not Available Not Available Not Available doxycycli [...] Updated DateTime 09/01/2022 162.56 cm 37.6 kg/m2 50448.73 g [facility] 09/01/2022 12:30:28 Date Recorded Body height Provider Name an d Address Organization Details Last Updated DateTime 09/27/2023 162.56 cm [facility] 0 09/27/2023 14:45:54 Date Recorded Body height Provider Name an d Address Organization Details Last Updated DateTime 10/25/2023 162.56 cm [facility] 11:45:38 Date Recorded Body weight Body mass index (BMI) Body height Provider Name and Address Organization Details Last Updated DateTime 08/11/2022 08033.73 g 37.6 kg/m2 162.56 cm [facility] [...] SNOMED-CT Code Diagnosis ICD10 Code Diagnosis Note [id number] SARAHI HOUGH PA-C [facility] [address] [place] [address] 08/11/2022 10:13:36 08/11/2022 12:53:20 Mass of joint of left knee 1299490198 9735706 M25.862 Assessment : History of left knee [...] of revision of left total knee arthroplasty 8860106990 57749 Z96.652 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 She currently stays at a group home, [employer] facility. She states she has had purulent [...] surgical discussion once Synovasure analysis is completed. [id number] SUZIE Richards MD [facility] [address] [place] [address] 10/25/2023 11:27:50 10/25/2023 13:02:53 Prosthetic joint infection 948463339 T84.54XS ASSESSMENT : Chronic recurrent PJI left [...] tion has been echoed by colleagues at [facility] orthopedic s. At this point, Malathi is amenable to amputation . I have discussed her case with Dr. Will garcia, who has kindly agreed to assist us with the procedure. We will coordinate with his office regarding surgical scheduling , but tentative plan for above-knee amputation on December 08 at [facility]. From a technical standpoint , we [...] were answered to the best my ability. [id number] SUZIE Richards MD SURGERY SCHEDULE [address] [place] [address] 12/14/2023 08:58:40 12/16/2023 10:03:36 Health Concerns [...] HEALTH CHOICES - FFS/TRADITION AL Eileen May [id number] Eileen May 10/12/2023 2 [place] HE[place]ICES - FFS/TR[place]ITION [place] Eileen May [id number] Eileen May 10/12/2023 [facility] Eileen Jh Guy [id number] Eileen May 12/06/2023 1 [place] Eileen Jh Guy [id number] Eileen May Notes Date Note Type Note Provider Name and Address Organization Details Recorded Time 08/11/2022 text/html [id number] e is 5 years S/P L TKA preformed in January of 2016. She returns with no pain or concerns to her TKA. She does have a visable nodule to anterior aspect of knee that is painful to touch 8/10 and she feels is causing her difficulty walking. She is inpatient at [facility] and comes ambualtign in wheelchair today. [...] evaluation and treatment options. SARAHI HOUGH PA-C [address] [place] [address], [address], [facility] 08/11/2022 13:06:31 09/01/2022 text/html 09/01/2022MrsSebastian May is 5 years S/P L TKA preformed in January of 2016 returns to discuss [place] MRI results. She comes to appointment accompanied by caregiver from [facility]. She remains using wheelchair. Since last [...] mg b.i.d for pain with no benefit. [id number] is 5 years S/P L TKA preformed in January of 2016. She returns with no pain or concerns to her TKA. She does have a visable nodule to anterior aspect of knee that is painful to touch 8/10 and she feels is causing her difficulty walking. She is inpatient at [facility] and comes ambualtign in wheelchair today. [...] and treatment options. SARAHI HOUGH PA-C [address] [place], [address], [facility] 09/01/2022 13:56:37 09/27/2023 text/html 09/27/23 Mrs. May is present for routine evaluation of L TKA 02/18/2016. She comes to appointment accompanied by caregiver from [facility]. Patient does have known history of prosthetic joint infection 2016 that they require revision with two-stage revision performed Dr. Rodriguez. Infection was Staphylococcus. She is maintained on doxycycline 100 mg 2 tablets twice daily by Dr. Murdcok has been on this ever since 2015. She is present ambulating with wheelchair, non weightbearing. Pain severity averages 8/10 with use of oxycodone 5/325 mg b.i.d PRN LISA STORY PA-C [address] [place], [address], [facility] 09/27/2023 16:09:08 10/25/2023 text/html [id number] returns today in follow-up for her chronic [...] ago. Shortly thereafter, she was readmitted to [facility] in acute renal failure. That improved [...] comes to appointment accompanied by caregiver from [facility]. Patient does have known history of [...] in January of 2016 returns to discuss [place] MRI results. She comes to appointment accompanied by caregiver from [facility]. She remains using wheelchair. Since last visit she voices increased swelling that since subsided with use of elevation and ICE but increased pain severity of 7/10 especially when trying to bear weight. 06-48-65mdxuuowvz is 5 years S/P L TKA preformed in January of 2016. She returns with no pain or concerns to her TKA. She does have a visable nodule to anterior aspect of knee that is painful to touch 8/10 and she feels is causing her difficulty walking. She is inpatient at [facility] and comes ambualtign in wheelchair today. [...] and treatment options. SUZIE RODRIGUEZ MD [address] [place], [address], [facility] 10/30/2023 11:53:31 OBGyn Episode No OBEpisode recorded.
--- OUTSIDE RECORDS SUMMARY | 2025-03-04 06:00 | XMS_ITS | Encounter Summary ---
Author Organization [facility] Address [address] [place] [address] Care Team Providers Care Plating Inspector Name Role Phone Daniel Barba MD Primary Care Provider [phone] Judy Huff TYPER Unavailable Unavailabl e Cayla Erazo APRN, DNP Unavailable [phone] Vignesh Pickens MD Primary Care Provider [phone] Encounter Details Date Type Department Care Team (Late st Contact Info) Description 07/28/2022 Orders Only External Location [address] [place] [address] Gregg Morgan MD [address] [place] [address] Social History Tobacco Use Types [...] [address] [place] [address] Doug Chapman MD [address] [place] [address] 03/27/2025 10:30 AM EDT Appointment [facility] Ultrasound [address] [place] [address] 03/27/2025 11:50 AM EDT Clinical Support Medical Office Building Lab [address] [place] [address] 03/27/2025 1:00 PM EDT Office Visit Medical Office Building Urology [address] [facility] [place] [address] Cayla Erazo, AIRCRAFT ARMAMENT MECHANIC, DNP [address] [place] [address] 05/16/2025 8:00 AM EDT Office Visit [facility] [place] [address] [facility], [address] [place] [address] Karly Gracia MD [address] [place] [address] 06/07/2025 1:00 PM EDT Office Visit [facility] [address] [place] [address] Tom Iraheta MD [address] [place] [address] documented as of this encounter [...] 08/15/2024 024 6:31 PM EST 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 Respiratory Rule-Out 02/22/2025 02/23/2025 025 5:07 AM EDT Rhinovirus 02/23/2025 02/23/2025 documented as of this encounter Care Teams Plating Inspector Relationship Specialty Start Date End Date Daniel Barba MD [address] [place] [address] PCP - General 01/02/21 12/30/24 Vignesh Pickens MD [address] [place] [address] PCP - General 12/31/24 Judy Huff, TYPER [facility] TCM Nurse 08/24/24 08/24/24 Cayla Erazo APRN, DNP [address] [facility] [address] [place] [address] Nurse Practitioner Urology 12/20/24 documented as of this encounter
--- OUTSIDE RECORDS SUMMARY | 2025-03-04 06:00 | XMS_ITS | Encounter Summary ---
Author Organization [facility] Address [address] [place] [address] Care Team Providers Care Dry Color Mixer Name Role Phone Cayla Erazo APRN, DNP Unavailable [phone] Vignesh Pickens MD Primary Care Provider [phone] Encounter Details Date Type Department Care Team [...] time in the past 12 m [facility], were you homeless or living in [...] drink first t rodríguez in the morning (EYE-WAREDRESSER) to steady your nerves or to get [...] [address] [place] [address] Doug Chapman MD [address] [facility] [address] [place] [address] 03/27/2025 10:30 AM EDT Appointment [facility] Ultrasound [address] [place] [address] 03/27/2025 11:50 AM EDT Clinical Support Medical Office Building Lab [address] [place] [address] 03/27/2025 1:00 PM EDT Office Visit Medical Office Building Urology [address] [facility], [address] [place] [address] Cayla Erazo, RESIDENT CARE AIDE, DNP [address] [place] [address] 05/16/2025 8:00 AM EDT Office Visit [facility] [place] [address] [facility], [address] [place] [address] Karly Gracia MD [address] [place] [address] 06/07/2025 1:00 PM EDT Office Visit [facility] [address] [place] [address] Tom Iraheta MD [address] [place] [address] documented as of this encounter [...] documented as of this encounter Care Teams Dry Color Mixer Relationship Specialty Start Date End Date Vignesh Pickens MD [address] [place] [address] PCP - General 12/31/24 Cayla Erazo APRN, DNP [address] [place] [address] Nurse Practitioner Urology 12/20/24 documented as of this encounter
--- OUTSIDE RECORDS SUMMARY | 2025-03-04 06:00 | XMS_ITS | Clinical Summary ---
Author Organization [employer] ([place], [place], [place], [place]) Address [address] [place] [address] Care Team Providers Care Professional Builder Name Role Phone [facility], Provider Not In The System [...] Do you speak a language other than Tanzanian at ho me? No 12/09/2023 Do you [...] A1C 11.7 % 11/25/2023 5:31 PM EDT [facility] Comment: Hemoglobin A1C levels are related to mean glucose during the preceding 2-3 months. Less than 7% demonstrates glycemic control in diabetic patients. Hemoglobin AlC % Suggested Diagnosis > or = 6.5 Diabetic 5.7 - 6.4 Prediabetic <5.7 Non-diabetic eAVG Glucose 289.09 mg/dL 11/25/2023 5:31 PM EDT [facility] Blood Venipuncture / Unknown 11/25/2023 11:24 AM EDT 11/25/2023 1:46 PM EDT us Radha Ram MD LAB BLOOD ORDERABLES Fi nal Result [facility] [address] [phone] from Last 3 Months or Most Recently Relevant to Health Maintenance Insurance [facility] [place] [id number] MEDICARE PART A B MEDICAID OF [place] Advance Directives For more information, please contact: [phone] * Full Code (Latest Code Status on [...] Sister First Alternate Healthcare Decision-Maker Care Teams Professional Builder Relationship Specialty Start Date End Date [facility], Provider Not In The System, [place] [address] PCP - General 10/05/23
--- OUTSIDE RECORDS SUMMARY | 2025-03-04 06:00 | XMS_ITS | Encounter Summary ---
Author Organization [facility] Address [address] [place] [address] Care Team Providers Care Net Web Developer Name Role Phone Daniel Barba MD Primary Care Provider [phone] Judy Huff ANIMAL RIDE ATTENDANT Unavailable UnavailCayla Carvajal APRN, DNP Unavailable [phone] Vignesh Pickens MD Primary Care Provider + [phone] Encounter Details Date Type Department Care Team (Late Contact Info) Description 08/11/2022 Orders Only External Location [address] [place] [address] Provider, External Social History Tobacco Use Types [...] [address], [address]nd [place] [address] Doug Chapman MD [address] [place] [address] 03/27/2025 10:30 AM EDT Appointment [facility] Ultrasound [address], 2nd [place] [address] 03/27/2025 11:50 AM EDT Clinical Support Medical Office Building Lab [address] [place] [address] 03/27/2025 1:00 PM EDT Office Visit Medical Office Building Urology [address] [facility], [address] [place] [address] Cayla Erazo, WILDLIFE BIOLOGIST, DNP [address] [place] [address] 05/16/2025 8:00 AM EDT Office Visit [facility] [place] [address] [facility], [address] [place] [address] Karly Gracia MD [address] [place] [address] 06/07/2025 1:00 PM EDT Office Visit [facility] [address] [place] [address] Tom Iraheta MD [address] [place] [address] documented as of this encounter [...] documented as of this encounter Care Teams Net Web Developer Relationship Specialty Start Date End Date Daniel Barba MD [address] [place] [address] PCP - General 01/02/21 12/30/24 Vignesh Pickens MD [address] [place] [address] PCP - General 12/31/24 Judy Huff, ANIMAL RIDE ATTENDANT [facility] TCM Nurse 08/24/24 08/24/24 Cayla Erazo APRN, [place] [address] [facility] [address] [place] [address] Nurse Practitioner Urology 12/20/24 documented as of this encounter
--- OUTSIDE RECORDS SUMMARY | 2025-03-04 06:00 | XMS_ITS | Referral Summary ---
Author Organization [employer] ([place], [place], [place], [place]) Address [address] [place] [address] Care Team Providers Care Registrar Museum Name Role Phone [facility], Provider Not In The System MD [...] Do you speak a language other than Tuvaluan at ho me? No 12/09/2023 Do you [...] [facility] 1 [place] [address], [facility] [phone] from Last 3 Months or Most Recently Relevant to Health Maintenance Insurance MEDICARE PART A B MEDICAID OF [place] Advance Directives For more information, please contact: [phone] * Full Code (Latest Code Status on [...] Sister First Alternate Healthcare Decision-Maker Care Teams Registrar Museum Relationship Specialty Start Date End Date [facility], Provider Not In The System, [place] [address] PCP - General 10/05/23
--- OUTSIDE RECORDS SUMMARY | 2025-03-04 06:00 | XMS_ITS | Encounter Summary ---
Author Organization [facility] Address [address] [place] [address] Care Team Providers Care Technical Spec Name Role Phone Cayla Erazo APRN, DNP Unavailable [phone] Vignesh Pickens MD Primary Care Provider [phone] Encounter Details Date Type Department Care Team [...] any time in the past 12 m [facility], were you homeless or living [...] drink first t rodríguez in the morning (EYE-LINUX ADMINISTRATOR) to steady your nerves or to get [...] Description 03/07/2025 10:00 AM EDT Office Visit [facility]rology [address], 2nd [place] [address] Doug Chapman MD [id number] [place] [address] 03/27/2025 10:30 AM EDT Appointment [facility] Ultrasound [address], 2nd [place] [address] 03/27/2025 11:50 AM EDT Clinical Support Medical Office Building Lab [address] [place] [address] 03/27/2025 1:00 PM EDT Office Visit Medical Office Building Urology [address] [facility], [address] [place] [address] Cayla Erazo APRN, DNP [address] [facility] [address] [place] [address] 05/16/2025 8:00 AM EDT Office Visit [facility] [place] [address] [facility], [address] [place] [address] Karly Gracia MD [address] [place] [address] 06/07/2025 1:00 PM EDT Office Visit [facility] [address] [place] [address] Tom Iraheta MD [address] [place] [address] documented as of this encounter [...] documented as of this encounter Care Teams Technical Spec Relationship Specialty Start Date End Date Vignesh Pickens MD [address] [place] [address] PCP - General 12/31/24 Cayla Erazo APRN, DNP [address] [place] [address] Nurse Practitioner Urology 12/20/24 documented as of this encounter
--- OUTSIDE RECORDS SUMMARY | 2025-03-04 06:00 | XMS_ITS | Clinical Summary ---
Author Organization [facility] Address [address] [place] [address] Phone Care Team Providers Care Front Clerk Name Role Phone Foreign Spangler MD, Andrei [place] Primary Care Provid er Allergies No known [...] 2024 Bone Density Screening 2024 Influenza Vaccine (#1) 2025 Hepatitis B Vaccine Aged Out No longe r eligible based on patient's age to complete this topic Meningococcal B Vaccine Aged Out No l onger eligible based on patient's age to complete this topic Insurance [place] PART A AND B [place] [id number] Care Teams Front Clerk Relationship Specialty Start Date End Date Andrei Carrasquillo Sr., MD [address] [place] [address] PCP - General Bore Mill Operator 03/17/16
--- OUTSIDE RECORDS SUMMARY | 2025-03-04 06:01 | XMS_ITS | Encounter Summary ---
Author Organization [facility] Address [address] [place] [address] Care Team Providers Care Prop Attendant Name Role Phone Cayla Erazo APRN, DNP Unavailable Vignesh Pickens MD Primary Care Provider [phone] Encounter Details Date Type Department Care Team (Latest Contact Info) Description 02/28/2025 Travel Social History Tobacco Use Types Packs/Day [...] drink first t rodríguez in the morning (EYE-CLAIM CLINICIAN) to steady your nerves or to get [...] Light, RN documented as of this encounter Plan of Treatment Upcoming Encounters Date Type Department Care Team (Late st Contact Info) Description 03/07/2025 10:00 AM EDT Office Visit [facility] [address], 2nd [place] [address] Doug Chapman MD [address] [address] 03/27/2025 10:[address] [facility] Ultrasound [address], [address]nd [place] [address] 03/27/2025 11:50 AM EDT Clinical Support Medical Office Building Lab [address] [place] [address] 03/27/2025 1:00 PM EDT Office Visit Medical Office Building Urology [address] [facility], [address] [place] [address] Cayla Erazo, BUSINESS CASE ANALYST, DNP [address] [facility] [address] [place] [address] 05/16/2025 8:00 AM EDT Office Visit [facility] [employer] [address] [facility], [address] [place] [address] Karly Gracia MD [address] [place] [address] 06/07/2025 1:00 PM EDT Office Visit [facility] [address] [place] [address] Tom Iraheta MD [address] [place] [address] documented as of this encounter [...] documented as of this encounter Care Teams Prop Attendant Relationship Specialty Start Date End Date Vignesh Pickens MD [address] [place] [address] PCP - General 12/31/24 Cayla Erazo APRN, DNP [address] [place] [address] Nurse Practitioner Urology 12/20/24 documented as of this encounter
--- OUTSIDE RECORDS SUMMARY | 2025-03-04 06:01 | XMS_ITS | Encounter Summary ---
Author Organization [facility] Address [address] [place] [address] Care Team Providers Care Recording Engineer Name Role Phone Cayla Erazo APRN, DNP Unavailable [phone] Vignesh Pickens MD Primary Care Provider [phone] Encounter Details Date Type Department Care Team (Latest Contact Info) Description 02/22/2025 Travel Social History Tobacco Use Types Packs/Day [...] time in the past 12 m [facility], were you homeless [...] first t rodríguez in the morning (EYE-SENIOR PRODUCT MARKETING MANAGER) to steady your nerves or to [...] Description 03/07/2025 10:00 AM EDT [facility] [address], 2nd [place] [address] Doug Chapman MD [address] [facility] [address] [place] [address] 03/27/2025 10:30 AM EDT Appointment [facility] Ultrasound [address], 2nd [place] [address] 03/27/2025 11:50 AM EDT Clinical Support Medical Office Building Lab [address] [place] [address] 03/27/2025 1:00 PM EDT Office Visit Medical Office Building Urology [address] [facility], [address] [place] [address] Cayla Earzo, LABORER BEAM HOUSE, DNP [address] [place] [address] 05/16/2025 8:00 AM EDT Office Visit [facility] [place] [address] [facility], [address] [place] [address] Karly Gracia MD [address] [place] [address] 06/07/2025 1:00 PM EDT Office Visit [facility] [address] [place] [address] Tom Iraheta MD [address] [place] [address] documented as of this encounter Visit Diagnoses Not on file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 Respiratory Rule-Out 02/22/2025 02/23/2025 025 5:07 AM EDT Assessment Noted Time PHQ-9 Depression Total Score: 13 025 10:12 AM EST A fall risk assessment has been complete d for the patient 12/31/2024 3:03 PM EDT A Body Mass Index follow-up plan has been documented for the patient 03/02/2025 9:03 AM EDT documented as of this encounter Care Teams Recording Engineer Relationship Specialty Start Date End Date Vignesh Pickens MD [address] [place] [address] PCP - General 12/31/24 Cayla Erazo APRN, [place] [address] [place] [address] Nurse Practitioner Urology 12/20/24 documented as of this encounter
--- OUTSIDE RECORDS SUMMARY | 2025-03-04 06:01 | XMS_ITS | Encounter Summary ---
Author Organization [facility] Address [address] [place] [address] Care Team Providers Care Manufacturing Area Manager Name Role Phone Cayla Erazo APRN, DNP Unavailable [phone] Vignesh Pickens MD Primary Care Provider [phone] Encounter Details Date Type Department Care Team (Late st Contact Info) Description 02/22/2025 Orders Only External Location [address] [place] [address] Jordan Carl MD [address] [place] [address] Social History Tobacco Use Types Packs/Day Years [...] money to buy more. Never true 08/20/20 Within the past 12 months, t he [...] any time in the past 12 m [facility], were you homeless or living in [...] drink first t rodríguez in the morning (EYE-TUB RIDER) to steady your nerves or to get [...] Date of Assessment Author No Risk Indicated 02/26/2025 8:00 AM EDT Bassem Starks RN * Question Answer Date of Assessment Author 1. Wish to be (Past 1 Month) No 02/26/2025 8:00 AM EDT Bassem Jay, RN 2. Non-Specific Active Suici annie Thoughts (Past 1 Month) No 02/26/2025 8:00 AM EDT Harry Jay RN 6. Suicidal Behavior (Lifetime) No 8:00 AM EDT Bassem Jay, RN documented as of this encounter Plan of Treatment Upcoming Encounters Date Type Department Care Team (Late st Contact Info) Description 03/07/2025 10:00 AM EDT Office Visit [facility] Urology [address] 2nd [place] [address] Doug Chapman MD [address] [address] 03/27/2025 10:30 AM EDT Appointment [facility] Ultrasound [address], 2nd [place] [address] 03/27/2025 11:50 AM EDT Clinical Support Medical Office Building Lab [address] [place] [address] 03/27/2025 1:00 PM EDT Office Visit Medical Office Building Urology [address] [facility], [address] [place] [address] Cayla Erazo, GEAR DESIGN ENGINEER, DNP [address] [place] [address] 05/16/2025 8:00 AM EDT Office Visit [facility] [place] [address] [facility], [address] [place] [address] Karly Gracia MD [address] [place] [address] 06/07/2025 1:00 PM EDT Office Visit [facility] [address] [place] [address] Tom Iraheta MD [address] [place] [address] documented as of this encounter Procedures Procedure Name Priority Date/Time Associated Diagnosis Comments CT OUTSIDE IMAGES 02/22/2025 12:48 PM EDT documented in this encounter Results * CT OUTSIDE IMAGES (02/22/2025 12:48 PM EDT) Anatomical Region Laterality Modality Computed Tomogra phy 02/22/2025 12:4 8 PM EDT Jordan Carl MD IMG CT PROCEDURES Final Result documented in [...] as of this encounter Care Teams Manufacturing Area Manager Relationship Specialty Start Date End Date Vignesh Pickens MD [address] [place] [address] PCP - General 12/31/24 Cayla Erazo, GEAR DESIGN ENGINEER, DNP [address] [place] [address] Nurse Practitioner Urology 12/20/24 documented as of this encounter
--- OUTSIDE RECORDS SUMMARY | 2025-03-04 06:01 | XMS_ITS | Encounter Summary ---
Author Organization [facility] Address [address] [place] [address] Care Team Providers Care Green Coffee Blender Name Role Phone Daniel Barba MD Primary Care Provider [phone] Cayla Erazo APRN, [facility] Unavailable [phone] Vignesh Pickens MD Primary Care Provider [phone] Encounter Details Date Type Department Care Team (Late st Contact Info) Description 10/19/2024 Orders Only External Location [address] [place] [address] Provider, External Social History Tobacco Use Types [...] first t rodríguez in the morning (EYE-RAILWAY SIGNAL ELECTRICIAN) to steady your nerves or to get [...] Upcoming Encounters Date Type Department Care Team ([facility] st Contact Info) Description 03/07/2025 10:00 AM EDT Office Visit [facility] Urology [address] 2nd [place] [address] Doug Chapman MD [address] [place] [address] 03/27/2025 10:30 AM EDT Appointment [facility] Ultrasound [address], 2nd [place] [address] 03/27/2025 11:50 AM EDT Clinical Support Medical Office Building Lab [address] [place] [address] 03/27/2025 1:00 PM EDT Office Visit Medical Office Building Urology [address] [facility], [address] [place] [address] Cayla Erazo, COOKER CLEANER, DNP [address] [place] [address] 05/16/2025 8:00 AM EDT Office Visit [facility] [place] [address] [facility], [address] [place] [address] Karly Gracia MD [address] [place] [address] 06/07/2025 1:00 PM EDT Office Visit [facility] [address] [place] [address] [place] [address] Tom Iraheta MD [address] [place] [address] documented as of this [...] documented as of this encounter Care Teams Green Coffee Blender Relationship Specialty Start Date End Date Daniel Barba MD [address] [place] [address] PCP - General 01/02/21 12/30/24 Vignesh Pickens MD [address] [place] [address] PCP - General 12/31/24 Cayla Erazo APRN, DNP [address] [place] [address] Nurse Practitioner Urology 12/20/24 documented as of this encounter
--- OUTSIDE RECORDS SUMMARY | 2025-03-04 06:01 | XMS_ITS | Encounter Summary ---
Author Organization [facility] Address [address] [place] [address] Care Team Providers Care Acid Mixer Name Role Phone Cayla Erazo APRN, DNP Unavailable [phone] Vignesh Pickens MD Primary Care Provider [phone] Encounter Details Date Type Department Care Team (Latest Contact Info) Description 02/24/2025 Travel Social History Tobacco Use Types Packs/Day [...] time in the past [address] [facility], were you homeless or living [...] first t rodríguez in the morning (EYE-SECURITY REPRESENTATIVE) to steady your nerves or to get [...] Date of Assessment Author No Risk Indicated 02/24/2025 7:35 PM EDT Daniela Mcbride, JIMI * Question Answer Date of Assessment Author 1. Wish to be (Past 1 Month) No 025 7:35 PM EDT Daniela Mcbride, JIMI 2. Non-Specific Active Suici annie Thoughts (Past 1 Month) No 02/24/2025 7:35 PM EDT Daniela Mcbride, JIMI 6. Suicidal Behavior (Lifetime) No 7:35 PM EDT Daniela Mcbride, JIMI documented as of this encounter Plan of Treatment Upcoming Encounters Date Type Department Care Team (Late st Contact Info) Description 03/07/2025 10:00 AM EDT Office Visit [facility] Urology [address] 2nd [place] [address] Doug Chapman MD [id number] [place] [address] 03/27/2025 10:30 AM EDT Appointment [facility] Ultrasound [address], 2nd [place] [address] 03/27/2025 11:50 AM EDT Clinical Support Medical Office Building Lab [address] [place] [address] 03/27/2025 1:00 PM EDT Office Visit Medical Office Building Urology [address] [facility], [address] [place] [address] Cayla Erazo, HOME ECONOMIST, DNP [address] [facility] [address] [place] [address] 05/16/2025 8:00 AM EDT Office Visit [facility] [place] [address] [facility], [address] [place] [address] Karly Gracia MD [address] [place] [address] 06/07/2025 1:00 PM EDT Office Visit [facility] [address] [place] [address] Tom Iraheta MD [address] [place] [address] documented as of this [...] documented as of this encounter Care Teams Acid Mixer Relationship Specialty Start Date End Date Vignesh Pickens MD [address] [place] [address] PCP - General 12/31/24 Cayla Erazo APRN, DNP [address] [place] [address] Nurse Practitioner Urology 12/20/24 documented as of this encounter
--- OUTSIDE RECORDS SUMMARY | 2025-03-04 06:01 | XMS_ITS | Encounter Summary ---
Author Organization [facility] Address [address] [place] [address] Care Team Providers Care Deputy District Customs Director Name Role Phone Cayla Erazo APRN, DNP Unavailable [phone] Vignesh Pickens MD Primary Care Provider [phone] Encounter Details Date Type Department Care Team (Latest Contact Info) Description 02/27/2025 Travel Social History Tobacco Use Types Packs/Day [...] drink first t rodríguez in the morning (EYE-FISCAL AGENT) to steady your nerves or to get [...] Office Visit [facility] [address] [place] [address] Doug Chapman MD [address] [place] [facility] [address] [place] [address] 03/27/2025 10:30 AM EDT Appointment [facility] Ultrasound [address], 2nd [place] [address] 03/27/2025 11:50 AM EDT Clinical Support Medical Office Building Lab [address] [place] [address] 03/27/2025 1:00 PM EDT Office Visit Medical Office Building Urology [address] [facility], [address] [place] [address] Cayla Erazo, EMERGENCY MEDICINE PHYSICIAN, [place] [address] [place] [address] 05/16/2025 8:00 AM EDT Office Visit [facility] [place] [address] [facility], [address] [place] [address] Karly Gracia MD [address] [place] [address] 06/07/2025 1:00 PM EDT Office Visit [facility] [address] [place] [address] Tom Iraheta MD [address] [place] [address] documented as of this [...] documented as of this encounter Care Teams Deputy District Customs Director Relationship Specialty Start Date End Date Vignesh Pickens MD [address] [place] [address] PCP - General 12/31/24 Cayla Erazo APRN, DNP [address] [facility] [place] [address] Nurse Practitioner Urology 12/20/24 documented as of this encounter
--- OUTSIDE RECORDS SUMMARY | 2025-03-04 06:01 | XMS_ITS | Encounter Summary ---
Author Organization [facility] Address [address] [place] [address] Care Team Providers Care Cook Cold Meat Name Role Phone Cayla Erazo APRN, DNP Unavailable [phone] Vignesh Pickens MD Primary Care Provider [phone] Encounter Details Date Type Department Care Team (Late st Contact Info) Description 02/22/2025 Orders Only External Location [address] [place] [address] Jordan Carl MD [address] [place] [address] Social History Tobacco Use Types [...] in the past 12 m [facility], were you homeless or living in [...] drink first t rodríguez in the morning (EYE-FORCER MAKER) to steady your nerves or to [...] 03/07/2025 10:00 AM EDT Office Visit [facility] [address] [place] [address] Doug Chapman MD [address] [address] 03/27/2025 10:30 AM EDT Appointment [facility] Ultrasound [address], 2nd [place] [address] 03/27/2025 11:50 AM EDT Clinical Support Medical Office Building Lab [address] [place] [address] 03/27/2025 1:00 PM EDT Office Visit Medical Office Building Urology [address] [facility], [address] [place] [address] Cayla Erazo, MAINTENANCE SHOP TECHNICIAN, DNP [address] [place] [address] 05/16/2025 8:00 AM EDT Office Visit [facility] [place] [address] [facility], [address] [place] [address] Karly Gracia MD [address] [place] [address] 06/07/2025 1:00 PM EDT Office Visit [facility] [address] [place] [address] Tom Iraheta MD [address] [place] [address] documented as of this encounter [...] documented as of this encounter Care Teams Cook Cold Meat Relationship Specialty Start Date End Date Vignesh Pickens MD [address] [place] [address] PCP - General 12/31/24 Cayla Erazo, MAINTENANCE SHOP TECHNICIAN, DNP [address] [place] [address] Nurse Practitioner Urology 12/20/24 documented as of this encounter
--- OUTSIDE RECORDS SUMMARY | 2025-03-04 06:01 | XMS_ITS | Encounter Summary ---
Author Organization [facility] Address [address] [place] [address] Care Team Providers Care Tube Turner Name Role Phone Cayla Erazo APRN, DNP Unavailable Vignesh Pickens MD Primary Care Provider [phone] Encounter Details Date Type Department Care Team (Late st Contact Info) Description 02/22/2025 Orders Only External Location [address] [place] [address] Jordan Carl MD [address] [place] [address] Social History Tobacco Use Types [...] any time in the past 12 m [facility], were you homeless or living [...] first t rodríguez in the morning (EYE-POWER DIGGER OPERATOR) to steady your nerves or to [...] Description 03/07/2025 10:00 AM EDT Office Visit [facility] Urology [address], [address] [place] [phone] Doug Chapman MD [address] [phone] 03/27/2025 10:30 AM EDT Appointment [facility] Ultrasound [address]nd [place] [address] 03/27/2025 11:50 AM EDT Clinical Support [facility] [address] [place] [address] 03/27/2025 1:00 PM EDT Office Visit [facility] [address] [facility], [address] [place] [address] Cayla Erazo, ASSISTANT FLOOR COVERING PRINTER, DNP [address] [place] [address] 05/16/2025 8:00 AM EDT Office Visit [facility] [place] [address] [facility], [address] [place] [address] Karly Gracia MD [address] [place] [address] 06/07/2025 1:00 PM EDT Office Visit [facility] [address] [place] [address] Tom Iraheta MD [address] [place] [address] documented as of this encounter Procedures Procedure Name Priority Date/Time Associated Diagnosis Comments XR OUTSIDE IMAGES 02/22/2025 12:54 PM EDT documented in this encounter Results * XR OUTSIDE IMAGES (02/22/2025 12:54 PM EDT) Anatomical Region Laterality Modality Radiographic Alysa ging 02/22/2025 12:5 4 PM EDT Jordan Carl MD IMG XR PROCEDURES Final Result documented in [...] documented as of this encounter Care Teams Tube Turner Relationship Specialty Start Date End Date Vignesh Pickens MD [address] [place] [address] PCP - General 12/31/24 Cayla Erazo, ASSISTANT FLOOR COVERING PRINTER, DNP [address] [place] [address] Nurse Practitioner Urology 12/20/24 documented as of this encounter
--- OUTSIDE RECORDS SUMMARY | 2025-03-04 06:01 | XMS_ITS | Encounter Summary ---
Author Organization [facility] Address [address] [place] [address] Care Team Providers Care Director Of Advertising Sales Name Role Phone Cayla Erazo APRN, DNP Unavailable [phone] Vignesh Pickens MD Primary Care Provider [phone] Encounter Details Date Type Department Care Team (Late st Contact Info) Description 02/22/2025 Orders Only External Location [address] [place] [address] Jordan Carl MD [address] [place] [address] Social History Tobacco Use Types [...] drink first t rodríguez in the morning (EYE-COAL UNLOADER) to steady your nerves or to get [...] Office Visit [facility] [address] [place] [address] Doug Chapman MD [address] [phone] 03/27/2025 10:30 AM EDT Appointment [facility] Ultrasound [address] [place] [address] 03/27/2025 11:50 AM EDT Clinical Support [facility] [address] [place] [address] 03/27/2025 1:00 PM EDT Office Visit [facility] [address] [facility], [address] [place] [address] Cayla Erazo, STRAP CUTTING MACHINE OPERATOR, DNP [address] [place] [address] 05/16/2025 8:00 AM EDT Office Visit [facility] [place] [address] [facility], [address] [place] [address] Karly Gracia MD [address] [place] [address] 06/07/2025 1:00 PM EDT [facility] [address] [place] [address] Tom Iraheta MD [address] [place] [address] documented as of this encounter Procedures Procedure Name Priority Date/Time Associated Diagnosis Comments CT OUTSIDE IMAGES 02/22/2025 12:46 PM EDT documented in this encounter Results * CT OUTSIDE IMAGES (02/22/2025 12:46 PM EDT) Anatomical Region Laterality Modality Computed Tomogra phy 02/22/2025 12:4 6 PM EDT Jordan Carl MD IMG CT [...] as of this encounter Care Teams Director Of Advertising Sales Relationship Specialty Start Date End Date Vignesh Pickens MD [address] [place] [address] PCP - General 12/31/24 Cayla Erazo, STRAP CUTTING MACHINE OPERATOR, DNP [address] [place] [address] Nurse Practitioner Urology 12/20/24 documented as of this encounter
[2025-03-04 06:02] LABS: Lactate Venous 1.3 mmol/L (0.4-2.0); VBG HCO3 24.6 mmol/L (23-30); VBG PH 7.30 mmol/L (7.31-7.41); VBG PO2 54.1 mmol/L (28-40)
--- OUTSIDE RECORDS SUMMARY | 2025-03-04 06:02 | XMS_ITS | Encounter Summary ---
Author Organization [facility] Address [address] [place] [address] Care Team Providers Care Cod Clerk Name Role Phone Cayla Erazo APRN, DNP Unavailable [phone] Vignesh Pickens MD Primary Care Provider [phone] Encounter Details Date Type Department Care Team (Late st Contact Info) Description 03/01/2025 Telephone [facility] [address] [address] Dental, Surgeon, [address] [place] [address] Social History Tobacco Use Types Packs/Day Years [...] any time in the past 12 m [facility], were you homeless or living [...] drink first t rodríguez in the morning (EYE-ICU REGISTERED NURSE) to steady your nerves or to get [...] Indicated 03/01/2025 8:00 AM EDT Gayle Oakley, RN * [...] [facility] Urology [address] [place] [address] Doug Chapman MD [address] [phone] 03/27/2025 10:30 AM EDT Appointment [facility] Ultrasound [address]nd [place] [phone] 03/27/2025 11:50 AM EDT Clinical Support [facility] [address] [place] [address] 03/27/2025 1:00 PM EDT Office Visit [facility]rology [address] [facility], [address] [place] [address] Cayla Erazo, RISK MANAGEMENT ANALYST, [place] [address] [facility] [place] [address] 05/16/2025 8:00 AM EDT Office Visit [facility] [place] [address] [facility], [address] [place] [address] Karly Gracia MD [address] [place] [address] 06/07/2025 1:00 PM EDT Office Visit [facility] [address] [place] [address] Tom Iraheta MD [address] [place] [address] documented as of this encounter [...] documented as of this encounter Care Teams Cod Clerk Relationship Specialty Start Date End Date Vignesh Pickens MD [address] [place] [address] PCP - General 12/31/24 Cayla Erazo APRN, DNP [address] [place] [address] Nurse Practitioner Urology 12/20/24 documented as of this encounter
[2025-03-04 06:03] LABS: Albumin Level 4.2 g/dl (3.5-5.0); Chloride 90 mmol/L (98-107)
[2025-03-04 06:04] LABS: Potassium 4.5 mmoL/L (3.5-5.1); Sodium 129 mmol/L (136-145)
[2025-03-04 06:06] LABS: Alanine Aminotransferase 31 U/L (12-78); Anion Gap 14.5 mEq/L (5-15); Aspartate Amino Transferase 28 U/L (14-36); Blood Urea Nitrogen 39 mg/dl (7-17); Carbon Dioxide 29 mmol/L (22.0-30.0); Creatinine Clearance Estimated 39 mL/min (50-200); Creatinine,Serum 2.30 mg/dl (0.52-1.04); Estimated Glomerular Filt Rate 21 ml/min (>60); GFR (African American) 26 ML/MIN (>60)
[2025-03-04 06:06] LABS: VBG PCO2 51.1 mmol/L (35-51)
[2025-03-04 06:07] LABS: Albumin/Globulin Ratio 1.2 (1.1-1.8); Alkaline Phosphatase 102 U/L (38-126); Bilirubin,Total 0.2 mg/dl (0.2-1.3); Calcium 9.4 mg/dl (8.4-10.2); Globulin 3.6 g/dL (1.3-3.2); Glucose 188 mg/dl (74-100); Lipase 167 U/L (23-300); Magnesium 1.6 mg/dl (1.6-2.3); Total Protein,Serum 7.8 g/dl (6.3-8.2)
--- NOTE | 2025-03-04 06:07 | PC.NURSE ---
reported PO2 54.[address] Ramires.
[2025-03-04 06:09] LABS: INR 1.05 (0.9-1.1); Prothrombin Time 11.6 seconds (10.1-12.5)
[2025-03-04] MEDS: LACTATED RINGERS 1000ML 1,000 ML 999 ML IV (06:17)
[2025-03-04 06:19] LABS: Troponin I 0.02 ng/ml (0.00-0.034)
--- NOTE | 2025-03-04 06:35 | CT_ITS ---
PROCEDURE INFORMATION: Exam: CT Abdomen And Pelvis Without Contrast Exam date and time: 03/04/2025 7:06 AM Age: 64 years old Clinical indication: Abdominal pain; Generalized; Additional info: AMS recent hospitalization ttp diffuse, mid abd TECHNIQUE: Imaging protocol: Computed tomography of the abdomen and pelvis without contrast. Radiation optimization: All CT scans at this facility use at least one of these dose optimization techniques: automated exposure control; mA and/or kV adjustment per patient size (includes targeted exams where dose is matched to clinical indication); or iterative reconstruction. COMPARISON: CT ABDOMEN PELVIS W CON 02/22/2025 12:48 PM FINDINGS: Liver: Normal. No mass. Gallbladder and biliary ducts: The patient appears to be status post cholecystectomy. Pancreas: Normal. No ductal dilation. Spleen: Normal. No splenomegaly. Adrenal glands: Normal. No mass. Kidneys and ureters: See Urinary bladder finding. Stomach and bowel: There is no bowel obstruction. There is diverticulosis without evidence of diverticulitis. There is moderate stool seen throughout the colon. There is a prominent duodenal diverticulum measuring 2.8 x 2.5 x 2.7 cm. Appendix: No evidence of appendicitis. Intraperitoneal space: Unremarkable. No free air. No significant fluid collection. Vasculature: There is moderate atherosclerotic disease. There is no abdominal aortic aneurysm. Lymph nodes: Unremarkable. No enlarged lymph nodes. Urinary bladder: There is bilateral hydroureteronephrosis again seen leading up to the urinary bladder with mild nonspecific urinary bladder wall thickening. The appearance is similar. Reproductive: Unremarkable as visualized. Bones/joints: Unremarkable. No acute fracture. Soft tissues: Unremarkable. IMPRESSION: 1. Similar appearing bilateral hydroureteronephrosis. 2. Moderate stool seen throughout the colon. 3. Diverticulosis. Prominent duodenal diverticulum again seen.
[2025-03-04 06:38] LABS: Thyroid Stimulating Hormone 2.50 uIU/mL (0.465-4.68)
[2025-03-04 07:13] LABS: NT Pro Brain Natriuretic Pep. 1180 pg/mL (0-125)
--- NOTE | 2025-03-04 07:33 | HMH.EDGENADL ---
Discharge Plan Disposition Patient Disposition: Xfer [facility] Condition: Good Prescriptions Prescriptions: New levofloxacin 750 mg tablet 750 mg PO DAILY 7 Days Qty: 7 0RF No Action acetaminophen 500 mg tablet 500 mg PO Q6HP PRN (Reason: Mild Pain (Scale Score 1-4)) anastrozole 1 mg tablet 1 mg PO DAILY atorvastatin 40 mg tablet 40 mg PO DAILY carvedilol 12.5 mg tablet 12.5 mg PO BID calcitriol 0.25 mcg capsule 0.25 mcg PO DAILY diphenhydramine HCl [Allergy (diphenhydramine)] 25 mg tablet 25 mg PO BID PRN dextromethorphan-guaifenesin [Guaiasorb DM] 10-100 mg/5 mL liquid 10 ml PO Q4H PRN duloxetine 30 mg capsule,delayed release(DR/EC) 30 mg PO DAILY Rx Instructions: give with 60mg capsule for a total of 90mg daily ipratropium-albuterol 0.5 mg-3 mg(2.5 mg base)/3 mL solution for nebulization 3 ml inhalation Q6H PRN AZO D-Mannose 500 mg capsule 2,000 mg PO DAILY estradiol 0.01 % (0.1 mg/gram) cream 1 g vaginal .3xwk insulin aspart U-100 100 unit/mL (3 mL) insulin pen 1 sliding scale dose SQ USEASDIRECTD trospium 20 mg tablet 20 mg PO BID Rx Instructions: administer on an empty stomach mirabegron [Myrbetriq] 50 mg tablet extended release 24 hr 50 mg PO DAILY loperamide 2 mg capsule 2 mg PO Q4HP PRN (Reason: Diarrhea) pantoprazole [Protonix] 20 mg tablet,delayed release (DR/EC) 20 mg PO DAILY baclofen 10 mg tablet 10 mg PO TID azelastine 137 mcg (0.1 %) aerosol,spray 2 spray intranasal BID Qty: 30 3RF Rx Instructions: administer into each nostril artifi.tears(hypromellose)(PF) 1.7 % drops with applicator 1 drp Eye-Both BID PRN ascorbic acid (vitamin C) [Vitamin C] 500 mg tablet 500 mg PO BID oxycodone-acetaminophen [Percocet] 5-325 mg tablet 1 tab PO BID PRN (Reason: Pain (Scale Score 7-10)) Qty: 60 0RF fentanyl 12 mcg/hr patch 72 hour 1 patch transdermal Q72H Qty: 10 0RF insulin glargine [Basaglar KwikPen U-100 Insulin] 100 unit/mL (3 mL) insulin pen 70 unit SQ BID pregabalin 50 mg capsule 50 mg PO DAILY Qty: 30 5RF clopidogrel 75 MG tablet 75 mg PO DAILY multivitamin with minerals 1 EACH tablet 1 each PO DAILY ondansetron 4 mg Tablet,Disintegrating 4 mg PO Q6HP PRN (Reason: Nausea And Vomiting) trazodone 150 mg tablet 300 mg PO HS ferrous sulfate [iron] 325 mg (65 mg iron) tablet 325 mg PO BID cyanocobalamin (vitamin B-12) [Vitamin B-12] 1,000 mcg Tablet 1,000 mcg PO DAILY fluticasone propionate 50 mcg/actuation Stout,Suspension 1 spray INTRANASAL BID Rx Instructions: administer into each nostril cholecalciferol (vitamin D3) [Vitamin D3] 25 mcg (1,000 unit) Tablet 25 mcg PO BID Xarelto 15 mg Tablet 15 mg PO DAILY fluticasone furoate-vilanterol [Breo Ellipta] 100-25 mcg/dose Blister With Device 1 inh INHALATION DAILY magnesium oxide 400 mg magnesium Tablet 400 mg PO BID Referrals Follow up/Referrals: Provider,Referral, [Primary Care Provider, Medical] - See instructions Activity Restrictions/Add. Instructions Additional Instructions/Restrictions: She should stop taking the Augmentin and should start taking the levofloxacin for pneumonia as well as UTI. She should take the antibiotics as prescribed for 7 days. Please have her return to return to the emergency department if she is requiring oxygen, having any significant difficulties breathing, altered from her baseline or if you have any other acute concerns. Clinical Impressions Clinical Impression: Pneumonia, Acute UTI Print Language Print Language: [place] Discharge ED Provider: Dong Ramires General Adult HPI <Dong Ramires MD - Last Filed: 03/04/25 07:43> General Chief complaint: Shortness of Breath/Dyspnea Stated complaint: AMS Time Seen by Provider: 03/04/25 05:40 Mode of Arrival: EMS Source of Information: Patient and EMS Description of Symptoms (Recalled from ER Triage Doc. by RN): pt to ED from [facility] who reports AMS, and pt c/o SOA. FS 192. Pt lethargic but a&ox4 History of Present Illness HPI narrative: 64-year-old female presents to the ER from [facility] by EMS. Patient has extensive past medical history including CHF, chronic hyponatremia, CKD, diabetes, CVA with residual left-sided deficits, CAD, COPD. Review of records from demonstrate patient was just discharged from an extensive admission there that included intubation on ventilator due to depressed mental status, she had hypoxic respiratory failure that was treated while inpatient, she was nonoliguric but has CKD stage IIIb, she had dental procedure at on 02/28/2025 to remove and nonrestorable tooth #15. While inpatient she had viral pneumonia with rhinovirus, neurogenic bladder, hydronephrosis, hydroureter. She also has a history of HFrEF with EF 35%. While inpatient she was not always cooperative with physical therapy, she was recommended to subacute therapy. Physical therapy notes demonstrates that at 1 point patient stated she did not want to participate and cited fatigue and wanting to rot . Today EMS was called because [facility] found the patient to be lethargic but she is oriented x 4. Reportedly the patient complained of shortness of breath but to me she does not have any shortness of breath, no cough or congestion. She reports very mild abdominal pain, no pain when she urinates. She is a poor historian but reports not having any complaints and states she is not sure why [facility] sent her to the hospital. Related Data Home Medications ?Medication ?Instructions ?Recorded ?Confirmed acetaminophen 500 mg tablet 500 mg PO Q6HP PRN Mild Pain 02/28/18 02/19/25 (Scale Score 1-4) anastrozole 1 mg tablet 1 mg PO DAILY breast cancer 02/28/18 02/19/25 atorvastatin 40 mg tablet 40 mg PO DAILY Cholesterol 02/28/18 02/19/25 carvedilol 12.5 mg tablet 12.5 mg PO BID Hypertension 02/28/18 02/19/25 loperamide 2 mg capsule 2 mg PO Q4HP PRN Diarrhea 07/11/18 02/19/25 baclofen 10 mg tablet 10 mg PO TID muscle spasms 04/11/19 02/19/25 pantoprazole 20 mg tablet,delayed 20 mg PO DAILY GERD 04/11/19 02/19/25 release (Protonix) clopidogrel 75 mg tablet 75 mg PO DAILY 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 02/04/20 02/19/25 multivitamin with minerals 1 each PO DAILY Supplement 05/06/21 02/19/25 ondansetron 4 mg disintegrating 4 mg PO Q6HP PRN Nausea And 07/28/22 02/19/25 tablet Vomiting trazodone 150 mg tablet 300 mg PO HS SLEEP 07/28/22 02/19/25 cholecalciferol (vitamin D3) 25 25 mcg PO BID 10/04/23 02/19/25 mcg (1,000 unit) tablet (Vitamin D3) cyanocobalamin (vitamin B-12) 1,000 mcg PO DAILY 10/04/23 02/19/25 1,000 mcg tablet (Vitamin B-12) fluticasone furoate 100 1 inh inhalation DAILY 10/04/23 02/19/25 mcg-vilanterol 25 mcg/dose inhalation powder (Breo Ellipta) fluticasone propionate 50 1 spray intranasal BID 10/04/23 02/19/25 mcg/actuation nasal spray,suspension magnesium oxide 400 mg PO BID 10/04/23 02/19/25 rivaroxaban 15 mg tablet (Xarelto) 15 mg PO DAILY 10/04/23 02/19/25 ascorbic acid (vitamin C) 500 mg 500 mg PO BID Supplement 10/16/23 02/19/25 tablet (Vitamin C) calcitriol 0.25 mcg capsule 0.25 mcg PO DAILY 03/19/24 02/19/25 dextromethorphan-guaifenesin 10 10 ml PO Q4H PRN 07/24/24 02/19/25 mg-100 mg/5 mL oral liquid (Guaiasorb DM) diphenhydramine HCl 25 mg tablet 25 mg PO BID PRN 07/24/24 02/19/25 (Allergy (diphenhydramine)) duloxetine 30 mg capsule,delayed 30 mg PO DAILY 07/24/24 02/19/25 release artifi.tears(hypromellose)(PF) 1.7 1 drp Eye-Both BID PRN 10/02/24 02/19/25 % eye drops with applicator ferrous sulfate 325 mg (65 mg 325 mg PO BID Supplement 10/02/24 02/19/25 iron) tablet (iron) d-mannose 500 mg capsule (AZO 2,000 mg PO DAILY 02/19/25 02/19/25 D-Mannose) estradiol 0.01% (0.1 mg/gram) 1 g vaginal .3xwk 02/19/25 02/19/25 vaginal cream insulin aspart U-100 100 unit/mL 1 sliding scale dose SQ 02/19/25 02/19/25 (3 mL) subcutaneous pen USEASDIRECTD insulin glargine 100 unit/mL (3 70 unit SQ BID 02/19/25 02/19/25 mL) subcutaneous pen (Basaglar KwikPen U-100 Insulin) ipratropium 0.5 mg-albuterol 3 mg 3 ml inhalation Q6H PRN 02/19/25 02/19/25 (2.5 mg base)/3 mL nebulization soln mirabegron 50 mg tablet,extended 50 mg PO DAILY 02/19/25 02/19/25 release 24 hr (Myrbetriq) trospium 20 mg tablet 20 mg PO BID 02/19/25 02/19/25 Previous Rx's ?Medication ?Instructions ?Recorded azelastine 137 mcg (0.1 %) nasal 2 spray intranasal BID allergy 09/13/23 spray symptoms #30 mL oxycodone-acetaminophen 5 mg-325 1 tab PO BID PRN Pain (Scale Score 01/16/25 mg tablet (Percocet) 7-10) #60 tabs fentanyl 12 mcg/hr transdermal 1 patch transdermal Q72H #10 02/07/25 patch patches pregabalin 50 mg capsule 50 mg PO DAILY #30 caps 03/02/25 levofloxacin 750 mg tablet 750 mg PO DAILY 7 days #7 tabs 03/04/25 Allergies Allergy/AdvReac Type Severity Reaction Status Date / Time bupropion (From WELLBUTRIN) Allergy Unknown Unknown Verified 02/19/25 10:37 allergy reaction hydrocodone (From LORTAB) Allergy Unknown Unknown Verified 02/19/25 10:37 allergy reaction Sulfa (Sulfonamide Allergy Unknown Unknown Verified 02/19/25 10:37 Antibiotics) (SULFA allergy (SULFONAMIDE ANTIBIOTICS)) reaction tramadol (From ULTRAM) Allergy Unknown Unknown Verified 02/19/25 10:37 allergy reaction SURGICAL TAPE Allergy Unknown Unknown Uncoded 10/15/24 13:43 allergy reaction PFSH <Dong Ramires MD - Last Filed: 03/04/25 07:43> [facility] Disclaimer: The information contained in this section may have been updated after the patient was seen, as this information can be updated by other users. 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, left Menopausal vasomotor syndrome Otogenic otalgia of right ear Otogenic otalgia of left ear Fibromyalgia, primary Gastro-esophageal reflux disease without esophagitis 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[place] coronary artery without angina pectoris Other idiopathic peripheral autonomic neuropathy Chronic pain syndrome Anxiety disorder, unspecified Major depressive disorder, recurrent, unspecified Hypertensive heart disease without heart failure Need for assistance at home and no other household member able to render care Age-related osteoporosis without current pathological fracture Trochanteric bursitis, right hip Unilateral primary osteoarthritis, right hip Obstructive sleep apnea (adult) (pediatric) Unspecified diastolic (congestive) heart failure Iron deficiency anemia secondary to blood loss (chronic) Right carotid artery occlusion Status post stent procedure, (patient own report, [facility], 10 years ago) BMI 39.0-39.9,adult Biventricular CHF (congestive heart failure) PVC (premature ventricular contraction) Edema Chronic hypoxemic respiratory failure Stopped smoking with greater than 30 pack year history ARA and COPD overlap syndrome Acute respiratory failure with hypoxia and hypercapnia CHF exacerbation History of smoking 30 or more pack years last CT lung 01/13 Foot pain History of breast cancer Abnormal ECG COPD (chronic obstructive pulmonary disease) CVA (cerebral vascular accident) 12/01/22: History of R-ICA stenosis, s/p stent procedure, R-MCA cva with residual left spastic hemiparesis. CAD (coronary artery disease) PCI/CLIFF 2017. Last cardiac cath, Aug 2022, with patent stents>medical management. Surgical History Presence of internal carotid stent History of right shoulder replacement Status post left knee replacement History of total left knee replacement History of right mastectomy breast CA Family History Other Black lung disease Diabetes Hypertension Social History Smoking Status: Unknown if ever smoked smoking status stop date: 06/2022 alcohol intake: never substance use type: denies use current occupational status: disabled Travel in the last 8 weeks?: None household members: other housing: senior care caffeine: Yes Other 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 Have you received the Flu Vaccine for this season: No Have you received the Pneumonia Vaccine: Yes (06/29/19, 11/26/24) <Dong Ramires MD - Last Filed: 03/04/25 07:43> ROS Obtained: Yes Systems reviewed as appropriate & no additional complaints except as documented Per HPI Physical Exam <Dong Ramires MD - Last Filed: 03/04/25 07:43> General General appearance: alert (Sleepy but arousable), in no apparent distress and obese Comment: Chronically ill-appearing, fatigued Head Head exam: atraumatic and normocephalic Eye Eye exam: Present PERRL and EOMI ENT ENT exam: Present mucous membranes moist and other (Nasal cannula in place) Neck Neck exam: Present normal inspection and full ROM Chest Chest inspection: Present symmetric chest wall rise Respiratory Respiratory exam: Absent normal lung sounds bilaterally (Rhonchi throughout that move with cough), respiratory distress, wheezes or stridor Cardiovascular Cardiovascular exam: Present regular rate and normal rhythm Abdominal Exam Abdominal exam: Present soft and tenderness (Mild diffuse but worse in the epigastric region); Absent distention, guarding or rebound Extremities Exam Extremities exam: Present full ROM and other (Left AKA); Absent edema Neurological Exam Neurological exam: Present alert, oriented X3 and motor sensory deficit (Moderate left-sided motor deficits secondary to previous CVA, unchanged from prior according to patient and review of other records) Psychiatric Psychiatric exam: Present normal affect and normal mood Skin Skin exam: Present warm and dry Medical Decision Making <Dong Ramires MD - Last Filed: 03/04/25 07:43> Medical Records Medical records reviewed: Yes I reviewed the patient's medical records. Screening: Per USPSTF and CDC recommendations, given the prevalence of disease in our region, it is our hospital?s policy to screen for HIV and viral Hepatitis for all patients aged 18 and over and those with ongoing risk factors. MR Comment: See HPI Jordi Inquiry Pt receiving controlled substance: No Vital Signs: 03/04/25 05:51 03/04/25 06:30 03/04/25 07:24 Temperature 98.0 F Temperature Source Oral Pulse Rate 89 89 Pulse Rate [Apical] 82 Respiratory Rate 18 12 12 Blood Pressure 138/82 165/79 H Blood Pressure [Right Arm] 133/84 Blood Pressure Mean 98 97 Blood Pressure Mean [Right Arm] 100 Blood Pressure Source [Right Arm] Automatic Cuff Blood Pressure Position [Right Arm] Sitting 02 Sat by Pulse Oximetry 99 95 94 L Oxygen Delivery Method Nasal Cannula Oxygen Flow Rate (LPM) 3 03/04/25 07:30 03/04/25 08:00 03/04/25 08:30 Temperature Temperature Source Pulse Rate 88 88 89 Pulse Rate [Apical] Respiratory Rate 14 18 18 Blood Pressure 179/118 H 173/91 H 172/100 H Blood Pressure [Right Arm] Blood Pressure Mean 124 118 126 Blood Pressure Mean [Right Arm] Blood Pressure Source [Right Arm] Blood Pressure Position [Right Arm] 02 Sat by Pulse Oximetry 95 100 100 Oxygen Delivery Method Oxygen Flow Rate (LPM) 03/04/25 08:47 03/04/25 09:00 03/04/25 09:30 Temperature Temperature Source Pulse Rate 86 83 82 Pulse Rate [Apical] Respiratory Rate 17 18 16 Blood Pressure 167/96 H 158/92 H 172/98 H Blood Pressure [Right Arm] Blood Pressure Mean 119 117 118 Blood Pressure Mean [Right Arm] Blood Pressure Source [Right Arm] Blood Pressure Position [Right Arm] 02 Sat by Pulse Oximetry 100 97 97 Oxygen Delivery Method Oxygen Flow Rate (LPM) 03/04/25 10:00 03/04/25 10:30 Temperature Temperature Source Pulse Rate 82 77 Pulse Rate [Apical] Respiratory Rate 16 21 Blood Pressure 163/88 H 173/94 H Blood Pressure [Right Arm] Blood Pressure Mean Blood Pressure Mean [Right Arm] Blood Pressure Source [Right Arm] Blood Pressure Position [Right Arm] 02 Sat by Pulse Oximetry 95 93 L Oxygen Delivery Method Oxygen Flow Rate (LPM) Lab Data Lab Results 03/04/25 05:47: WBC 6.7, RBC 4.08 L, Hgb 10.6 L, Hct 33.7 L, MCV 82.6, MCH 26.0 L, MCHC 31.5 L, RDW 15.7, Plt Count 272, MPV 9.7, Neut % (Auto) 64.9, Lymph % (Auto) 18.4, [place] % (Auto) 11.5 H, Eos % (Auto) 4.0, Baso % (Auto) 0.6, Neut # (Auto) 4.3, Lymph # (Auto) 1.2, [place] # (Auto) 0.8, Eos # (Auto) 0.3, Baso # (Auto) 0.0, PT 11.6, INR 1.05, Sodium 129 L, Potassium 4.5, Chloride 90 L, Carbon Dioxide 29, Anion Gap 14.5, BUN 39 H, Creatinine 2.30 H, Estimated Creat Clear 39, Estimated GFR 21 L, Est GFR ( Amer) 26 L, Glucose 188 H, Calcium 9.4, Magnesium 1.6, Total Bilirubin 0.2, AST 28, ALT 31, Alkaline Phosphatase 102, Troponin I 0.02, Total Protein 7.8, Albumin 4.2, Globulin 3.6 H, Albumin/Globulin Ratio 1.2, Lipase 167, TSH 2.50, Free T4 1.49, Plasma/Serum Alcohol < 10 03/04/25 05:50: VBG pH 7.30 L, VBG pCO2 51.1 H, VBG pO2 54.1 H, VBG HCO3 24.6, VBG Total CO2 26.2, VBG O2 Saturation 83.6 H, VBG Base Excess -1.8, VBG Lactic Acid 1.3 03/04/25 06:49: NT-Pro-B Natriuret Pep 1180 H 03/04/25 08:45: Troponin I 0.02 03/04/25 09:44: Urine Color Yellow, Urine Appearance Clear, Urine pH 6.0, Ur Specific [place] <= 1.005, Urine Protein Negative, Urine Glucose (UA) Negative, Urine Ketones Negative, Urine Blood 2+ A, Urine Nitrate Negative, Urine Bilirubin Negative, Urine Urobilinogen 0.2, Ur Leukocyte Esterase 3+ A, Urine RBC 5-10, Urine WBC 10-20, Ur Squamous Epith Cells 5-10, Urine Bacteria Trace 03/04/25 09:45: Urine Opiates Screen Negative, Urine Methadone Screen Negative, Ur Barbituates Screen Negative, Ur Phencyclidine Scrn Negative, Ur Amphetamines Screen Negative, U Benzodiazepines Scrn Negative, Urine Cocaine Screen Negative, U Marijuana (THC) Screen Negative 03/04/25 05:47 03/04/25 05:47 Orders (Tests/Meds): ED MEDICATIONS Generic Name Dose Route Start Last Admin Trade Name Freq PRN Reason Stop Dose Admin Ceftriaxone Sodium 2 gm/ 100 mls @ 200 mls/hr 03/04/25 07:15 03/04/25 07:56 Sodium Chloride IV 03/14/25 07:14 200 mls/hr Q24H CLARI Administration Discontinued Medications Generic Name Dose Route Start Last Admin Trade Name Freq PRN Reason Stop Dose Admin Albuterol/Ipratropium 3 ml 03/04/25 07:41 03/04/25 07:56 Ipratropium/Albuterol 3 Ml Neb IH 03/04/25 07:42 3 ml ONCE ONE Administration Lactated Ringer's 1,000 mls @ 999 mls/hr 03/04/25 05:40 03/04/25 06:17 Lactated Ringer's 1000 Ml Bag IV 03/04/25 06:40 999 mls/hr .Q1H1M ONE Administration ORDERS Category Date Time Status CT abdomen pelvis wo con Stat Cat Scan 03/04/25 06:[address] head/brain wo con Stat Cat Scan 03/04/25 05:41 Completed XR chest portable Stat Exams 03/04/25 05:40 Completed BNP [NT Pro Brain Natriuretic Pep.] Stat Lab 03/04/25 06:49 Completed Complete Blood Count Auto Diff Stat Lab 03/04/25 05:47 Completed Comprehensive Metabolic Panel Stat Lab 03/04/25 05:47 Completed Drug Screen,Urine Stat Lab 03/04/25 09:45 Completed Ethyl Alcohol Stat Lab 03/04/25 05:47 Completed Free T4 (Free Thyroxine) Stat Lab 03/04/25 05:47 Completed Lipase Stat Lab 03/04/25 05:47 Completed Magnesium Stat Lab 03/04/25 05:47 Completed Prothrombin Time INR Stat Lab 03/04/25 05:47 Completed Thyroid Stimulating Hormone Stat Lab 03/04/25 05:47 Completed Troponin I Q3H Lab 03/04/25 08:45 Completed Troponin I Q3H Lab 03/04/25 11:45 Ordered Troponin I Stat Lab 03/04/25 05:47 Completed Urinalysis and Microscopic Stat Lab 03/04/25 09:44 Completed Blood Culture Stat Micro 03/04/25 06:57 Received Urine Culture Stat Micro 03/04/25 09:44 Received Venous Blood Gas Stat RT 03/04/25 05:50 Completed Medical Decision Narrative: In summary, this 64-year-old female with comorbidities described in the HPI not at goal therapy presents to the emergency department today with concerns from senior care of increased lethargy, and reportedly shortness of breath though patient has no complaints on arrival in the ER. On initial evaluation patient is chronically ill-appearing, obese, she is sleepy but arousable, oriented, neurologic deficits are at baseline, mild midepigastric tenderness to palpation without peritonitic findings, she does have rhonchi bilaterally but they move with cough, saturating well on nasal cannula. Differential diagnosis includes but is not limited to ACS, PE, pneumonia, pneumothorax, intra-abdominal infection, urinary tract infection, intracranial lesion, electrolyte abnormality, dehydration, also considered sepsis or bacteremia, among others. Based on these concerns, I ordered a workup including serum and urine labs, CT imaging, chest x-ray, cardiac workup. ECG personally interpreted demonstrates sinus rhythm, rate 83, normal NE, normal QTc, right bundle missy block, no STEMI. Patient received IV fluids initially for treatment. Labs personally reviewed demonstrate no leukocytosis, anemia stable from prior, normal platelets, PT/INR normal, VBG with pH 7.3, mild hypercarbia, DuoNeb ordered, CMP with hyponatremia actually improved from previous, CKD similar to prior, initial troponin 0.02 stable from previous, BNP improved from prior now 1180 down from 1900 few days ago according to our records, lipase normal at 167, TSH normal, additional labs pending at this time. Chest x-ray personally turbid demonstrates potential retrocardiac opacity, see radiology read for final interpretation. Blood cultures have already been ordered. Rocephin initiated. CT head personally interpreted does not demonstrate new acute intracranial abnormality, see radiology read for final interpretation. CT abdomen pelvis pending. I wanted to order CTA PE, however with the patient's severely depressed GFR I do not want to cause contrast-induced nephropathy and potentially plan to the patient on dialysis, so we will not do this at this time unless it becomes increased suspicion for PE. Patient handed off to Dr. Isidro currently in stable condition pending radiology reads, additional labs. <Shruthi Dwaine, DO - Last Filed: 03/04/25 11:01> Vital Signs: 03/04/25 05:51 03/04/25 06:30 03/04/25 07:24 Temperature 98.0 F Temperature Source Oral Pulse Rate 89 89 Pulse Rate [Apical] 82 Respiratory Rate 18 12 12 Blood Pressure 138/82 165/79 H Blood Pressure [Right Arm] 133/84 Blood Pressure Mean 98 97 Blood Pressure Mean [Right Arm] 100 Blood Pressure Source [Right Arm] Automatic Cuff Blood Pressure Position [Right Arm] Sitting 02 Sat by Pulse Oximetry 99 95 94 L Oxygen Delivery Method Nasal Cannula Oxygen Flow Rate (LPM) 3 03/04/25 07:30 03/04/25 08:00 03/04/25 08:30 Temperature Temperature Source Pulse Rate 88 88 89 Pulse Rate [Apical] Respiratory Rate 14 18 18 Blood Pressure 179/118 H 173/91 H 172/100 H Blood Pressure [Right Arm] Blood Pressure Mean 124 118 126 Blood Pressure Mean [Right Arm] Blood Pressure Source [Right Arm] Blood Pressure Position [Right Arm] 02 Sat by Pulse Oximetry 95 100 100 Oxygen Delivery Method Oxygen Flow Rate (LPM) 03/04/25 08:47 03/04/25 09:00 03/04/25 09:30 Temperature Temperature Source Pulse Rate 86 83 82 Pulse Rate [Apical] Respiratory Rate 17 18 16 Blood Pressure 167/96 H 158/92 H 172/98 H Blood Pressure [Right Arm] Blood Pressure Mean 119 117 118 Blood Pressure Mean [Right Arm] Blood Pressure Source [Right Arm] Blood Pressure Position [Right Arm] 02 Sat by Pulse Oximetry 100 97 97 Oxygen Delivery Method Oxygen Flow Rate (LPM) 03/04/25 10:00 03/04/25 10:30 Temperature Temperature Source Pulse Rate 82 77 Pulse Rate [Apical] Respiratory Rate 16 21 Blood Pressure 163/88 H 173/94 H Blood Pressure [Right Arm] Blood Pressure Mean Blood Pressure Mean [Right Arm] Blood Pressure Source [Right Arm] Blood Pressure Position [Right Arm] 02 Sat by Pulse Oximetry 95 93 L Oxygen Delivery Method Oxygen Flow Rate (LPM) Lab Data Lab Results 03/04/25 05:47: WBC 6.7, RBC 4.08 L, Hgb 10.6 L, Hct 33.7 L, MCV 82.6, MCH 26.0 L, MCHC 31.5 L, RDW 15.7, Plt Count 272, MPV 9.7, Neut % (Auto) 64.9, Lymph % (Auto) 18.4, [place] % (Auto) 11.5 H, Eos % (Auto) 4.0, Baso % (Auto) 0.6, Neut # (Auto) 4.3, Lymph # (Auto) 1.2, [place] # (Auto) 0.8, Eos # (Auto) 0.3, Baso # (Auto) 0.0, PT 11.6, INR 1.05, Sodium 129 L, Potassium 4.5, Chloride 90 L, Carbon Dioxide 29, Anion Gap 14.5, BUN 39 H, Creatinine 2.30 H, Estimated Creat Clear 39, Estimated GFR 21 L, Est GFR ( Amer) 26 L, Glucose 188 H, Calcium 9.4, Magnesium 1.6, Total Bilirubin 0.2, AST 28, ALT 31, Alkaline Phosphatase 102, Troponin I 0.02, Total Protein 7.8, Albumin 4.2, Globulin 3.6 H, Albumin/Globulin Ratio 1.2, Lipase 167, TSH 2.50, Free T4 1.49, Plasma/Serum Alcohol < 10 03/04/25 05:50: VBG pH 7.30 L, VBG pCO2 51.1 H, VBG pO2 54.1 H, VBG HCO3 24.6, VBG Total CO2 26.2, VBG O2 Saturation 83.6 H, VBG Base Excess -1.8, VBG Lactic Acid 1.3 03/04/25 06:49: NT-Pro-B Natriuret Pep 1180 H 03/04/25 08:45: Troponin I 0.02 03/04/25 09:44: Urine Color Yellow, Urine Appearance Clear, Urine pH 6.0, Ur Specific [place] <= 1.005, Urine Protein Negative, Urine Glucose (UA) Negative, Urine Ketones Negative, Urine Blood 2+ A, Urine Nitrate Negative, Urine Bilirubin Negative, Urine Urobilinogen 0.2, Ur Leukocyte Esterase 3+ A, Urine RBC 5-10, Urine WBC 10-20, Ur Squamous Epith Cells 5-10, Urine Bacteria Trace 03/04/25 09:45: Urine Opiates Screen Negative, Urine Methadone Screen Negative, Ur Barbituates Screen Negative, Ur Phencyclidine Scrn Negative, Ur Amphetamines Screen Negative, U Benzodiazepines Scrn Negative, Urine Cocaine Screen Negative, U Marijuana (THC) Screen Negative Orders (Tests/Meds): ED MEDICATIONS Generic Name Dose Route Start Last Admin Trade Name Freq PRN Reason Stop Dose Admin Ceftriaxone Sodium 2 gm/ 100 mls @ 200 mls/hr 03/04/25 07:15 03/04/25 07:56 Sodium Chloride IV 03/14/25 07:14 200 mls/hr Q24H CLARI Administration Discontinued Medications Generic Name Dose Route Start Last Admin Trade Name Freq PRN Reason Stop Dose Admin Albuterol/Ipratropium 3 ml 03/04/25 07:41 03/04/25 07:56 Ipratropium/Albuterol 3 Ml Neb IH 03/04/25 07:42 3 ml ONCE ONE Administration Lactated Ringer's 1,000 mls @ 999 mls/hr 03/04/25 05:40 03/04/25 06:17 Lactated Ringer's 1000 Ml Bag IV 03/04/25 06:40 999 mls/hr .Q1H1M ONE Administration ORDERS Category Date Time Status CT abdomen pelvis wo con Stat Cat Scan 03/04/25 06:[address] head/brain wo con Stat Cat Scan 03/04/25 05:41 Completed XR chest portable Stat Exams 03/04/25 05:40 Completed BNP [NT Pro Brain Natriuretic Pep.] Stat Lab 03/04/25 06:49 Completed Complete Blood Count Auto Diff Stat Lab 03/04/25 05:47 Completed Comprehensive Metabolic Panel Stat Lab 03/04/25 05:47 Completed Drug Screen,Urine Stat Lab 03/04/25 09:45 Completed Ethyl Alcohol Stat Lab 03/04/25 05:47 Completed Free T4 (Free Thyroxine) Stat Lab 03/04/25 05:47 Completed Lipase Stat Lab 03/04/25 05:47 Completed Magnesium Stat Lab 03/04/25 05:47 Completed Prothrombin Time INR Stat Lab 03/04/25 05:47 Completed Thyroid Stimulating Hormone Stat Lab 03/04/25 05:47 Completed Troponin I Q3H Lab 03/04/25 08:45 Completed Troponin I Q3H Lab 03/04/25 11:45 Ordered Troponin I Stat Lab 03/04/25 05:47 Completed Urinalysis and Microscopic Stat Lab 03/04/25 09:44 Completed Blood Culture Stat Micro 03/04/25 06:57 Received Urine Culture Stat Micro 03/04/25 09:44 Received Venous Blood Gas Stat RT 03/04/25 05:50 Completed Medical Decision Narrative: In summary, this 64-year-old female with comorbidities described in the HPI not at goal therapy presents to the emergency department today with concerns from senior care of increased lethargy, and reportedly shortness of breath though patient has no complaints on arrival in the ER. On initial evaluation patient is chronically ill-appearing, obese, she is sleepy but arousable, oriented, neurologic deficits are at baseline, mild midepigastric tenderness to palpation without peritonitic findings, she does have rhonchi bilaterally but they move with cough, saturating well on nasal cannula. Differential diagnosis includes but is not limited to ACS, PE, pneumonia, pneumothorax, intra-abdominal infection, urinary tract infection, intracranial lesion, electrolyte abnormality, dehydration, also considered sepsis or bacteremia, among others. Based on these concerns, I ordered a workup including serum and urine labs, CT imaging, chest x-ray, cardiac workup. ECG personally interpreted demonstrates sinus rhythm, rate 83, normal NE, normal QTc, right bundle missy block, no STEMI. Patient received IV fluids initially for treatment. Labs personally reviewed demonstrate no leukocytosis, anemia stable from prior, normal platelets, PT/INR normal, VBG with pH 7.3, mild hypercarbia, DuoNeb ordered, CMP with hyponatremia actually improved from previous, CKD similar to prior, initial troponin 0.02 stable from previous, BNP improved from prior now 1180 down from 1900 few days ago according to our records, lipase normal at 167, TSH normal, additional labs pending at this time. Chest x-ray personally turbid demonstrates potential retrocardiac opacity, see radiology read for final interpretation. Blood cultures have already been ordered. Rocephin initiated. CT head personally interpreted does not demonstrate new acute intracranial abnormality, see radiology read for final interpretation. CT abdomen pelvis pending. I wanted to order CTA PE, however with the patient's severely depressed GFR I do not want to cause contrast-induced nephropathy and potentially plan to the patient on dialysis, so we will not do this at this time unless it becomes increased suspicion for PE. Patient handed off to Dr. Isidro currently in stable condition pending radiology reads, additional labs. Shruthi Isidro, DO I took over care for Dr. Ramires. Patient is pending results were reviewed and interpreted by myself. Patient's UA showed concern for leuk esterase, bacteria, white blood cells, concerning for infection. Patient was given a dose of Rocephin in the emergency department. Patient CT abdomen pelvis was reviewed interpreted by myself and showed no acute intra-abdominal pathology. On reevaluation, patient was alert and oriented, patient had no acute concerns at this time. Patient was transferred here from her nursing facility on oxygen, patient was transitioned off of her oxygen and appropriately had a room air challenge. Given that patient was recently admitted to [facility], patient does have a concern for possible Pseudomonas, and patient had a chest x-ray that was concerning for possible pneumonia. At this time, I felt the patient was appropriate for return back to her nursing facility. Patient was sent to her nursing facility on Augmentin at this time I felt that patient needed further Pseudomonas coverage and therefore patient was sent with Levaquin for UTI as well as pneumonia. Patient was told to discontinue her Augmentin at this time. I spoke to the nursing facility and they felt comfortable with this plan. Patient was otherwise discharged back to her nursing facility in stable condition return precautions were discussed. Critical Care <Dong Ramires MD - Last Filed: 03/04/25 07:43> Critical Care Time Critical Care Time: No
[2025-03-04] MEDS: IPRATROPIUM/ALBUTEROL 3 ML NEB IH (07:56)
[2025-03-04 08:33] LABS: Free T4 (Free Thyroxine) 1.49 ng/dl (0.78-2.19)
[2025-03-04 09:12] LABS: Troponin I 0.02 ng/ml (0.00-0.034)
--- NOTE | 2025-03-04 09:17 | PC.NURSE ---
dr burden updating sister at this time
[2025-03-04 09:47] LABS: Microscopic, Urine URINE MICROSCOPIC (MICROSCOPIC)
[2025-03-04 09:49] LABS: Bilirubin,Urine Negative (Negative); Color,Urine YELLOW (Yellow); Glucose,Urine (UA) Negative (Negative); Ketones,Urine Negative (Negative); Leukocyte Esterase,Urine 3+ (Negative); PH,Urine 6.0 (5.0-8.5); Protein,Urine Negative (Negative); Specific Gravity, Urine <= 1.005 (1.005-1.030); Urobilinogen,Urine 0.2 EU/dl (0.2)
[2025-03-04 09:58] LABS: Bacteria,Urine Trace /lpf
[2025-03-04 10:10] LABS: Barbiturates Screen,Urine Negative ng/ml (<200)
[2025-03-04 10:11] LABS: Benzodiazepines Screen,Urine Negative ng/ml (<200)
[2025-03-04 10:12] LABS: Amphetamine/Metha Screen,Urine Negative ng/ml (<1000)
[2025-03-04 10:14] LABS: Methadone Screen,Urine Negative ng/ml (<300); Opiate Screen,Urine Negative ng/ml (<300)
[2025-03-04 10:15] LABS: Phencyclidine Screen,Urine Negative ng/ml (<25)
--- NOTE | 2025-03-04 10:59 | PC.NURSE ---
call made to [facility] for pt transport back to [facility].
--- NOTE | 2025-03-04 11:10 | PC.NURSE ---
Report called to Shruthi KRAUSE at [facility] at 1110.
--- NOTE | 2025-03-08 08:58 | PC.NURSE ---
I called [facility] and spoke with Shell KRAUSE about the pt. She states the pt has been improving and feeling better. I inquired to see if levaquin was sent, she states the pt is currently on ciprofloaxcin instead.
--- NOTE | 2025-03-08 08:59 | PC.NURSE ---
I discussed the pts final urine culture results with . The pt is currently on cipro per [facility]. He states that is an acceptable antibiotic. No change needed to treatment plan.
== END 2025-03-04 11:26 ==
PROVIDERS: Emergency Provider Emergency Medicine
DX: J18.9 Pneumonia, unspecified organism (principal); N39.0 Urinary tract infection, site not specified; R41.82 Altered mental status, unspecified; E87.1 Hypo-osmolality and hyponatremia; Z87.891 Personal history of nicotine dependence
CPT/HCPCS: 70450; 71045; 74176; 80053; 80307; 80320; 81001; 82803; 83690; 83735; 83880; 84439; 84443; 84484; 85025; 85610; 87040; 87086; 87088; 87186; 93005; 96361; 96365; 96366; 99285; J0696; J7120

== ENCOUNTER 2025-03-13 10:50 | Observation (INO) | payer MEDICARE, MEDICAID, SELFPAY ==
--- OUTSIDE RECORDS SUMMARY | 2025-01-24 14:00 | XMS_ITS | Encounter Summary ---
Author Organization [facility] Address [address] [place] [address] Care Team Providers Care Rn Placement Name Role Phone Cayla Erazo APRN, DNP Unavailable [phone] Vignesh Pickens MD Primary Care Provider [phone] Encounter Details Date Type Department Care Team (Late st Contact Info) Description 01/24/2025 2:00 PM EDT Pre-Admission Testing [facility] Pre-op Clinic [address], [address] [place] [address] Social History Tobacco Use Types Packs/Day Years [...] time in the past 12 m [facility], were you homeless or living in a [...] drink first t rodríguez in the morning (EYE-HAM SMOKER) to steady your nerves or to get [...] - - Weight 85.7 kg (189 lb) 01/24/2025 1:20 PM EDT Height - - Body Mass Index 32.44 12/31/2024 2:49 PM EDT documented in this encounter Miscellaneous Notes * PAT Evaluation Note - Pearl Chopra APRN - 01/24/2025 2:00 PM EDT Images from the original note were not included. HPI Eileen Tovar is a 64 y.o. female who presents with Pre-op Diagnosis * Gross hematuria [R31.0] now scheduled for URETEROSCOPY, WITH BIOPSY POSSIBLE STENT PLACEMENTS (Bilateral). Past 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[1] Family History[2] Social History[3] SURGICAL HISTORY: Surgical History[4] Allergies[5] MEDICATIONS: Current Medications[6] 01/24/2025 1:20 PM Vitals Weight (kg) 85.73 kg BMI 32.44 kg/m2 BSA (m2) 1.97 m2 Lab Results Component Value Date WBC 5.78 09/26/2024 HGB 10.6 (L) 09/26/2024 HCT 34.8 09/26/2024 MCV 83 09/26/2024 PLT 347 09/26/2024 Lab Results Component Value Date GLUCOSE 226 (H) 12/20/2024 CALCIUM 10.0 12/20/2024 NA 134 (L) 12/20/2024 K 4.8 12/20/2024 CO2 28 12/20/2024 CL 94 (L) 12/20/2024 BUN 34 (H) 12/20/2024 CREATININE 1.82 (H) 12/20/2024 ROS Anesthesia: Date of last anesthetic: 12/09/23 - Airway - Endotracheal tube type: ETT Cuffed: yes Successful intubation technique: direct laryngoscopy Facilitating devices/methods: intubating stylet Endotracheal tube insertion site: oral Blade: Soha Blade size: #3 ETT size (mm): 7.0 Cormack-Lehane Classification: grade I - full view of glottis Placement verified by: chest auscultation and capnometry Cuff volume (mL): 10 Measured from: lips ETT to lips (cm): 21 Number of attempts at approach: 1 Number of other approaches attempted: 0. obstructive sleep apnea (intolerant to cpap.). Does not have a history of anesthetic complications,malignant hyperthermia, motion sickness and PONV. Anesthesia ROS additional comments: Can lay flat on back or side. Able to move head/neck without trouble, and able to open mouth wide, with pt.'s nurse Gabriela at [facility], via phone. . Cardiovascular: CAD (s/p cardiac stents (2018).), carotid artery disease (asymptomatic Bilat. CHAVA. s/p left ICA stent (2013).), CHF (chronic diastolic CHF.), dysrhythmias (Hx RBBB.), hyperlipidemia, past LA and PVD.Does not have angina, atrial fibrillation, dyspnea, murmur or syncope. hypertension: is well controlled. Does not have chest pain. Cardio additional comments: Pt. Is bed or wheelchair bound. 12/31/24 - Vascular - she underwent left ICA stenting in 2013 after she suffered an intraoperative stroke during mastectomy. She is maintained on plavix and statin and presents today for ABIs and carotid duplex. Her ABIs are normal. Carotid duplex s/p left ICA stent shows <50% stenosis of bilateral ICAs. I recommend annual surveillance and she will continue plavix and statin. Follow up in 1 year per Ro Montaño PA and Bert Canela MD. 12/04/24 - Echo - LVEF 35-40%. The right ventricular systolic function is normal. Based upon other 2D and Doppler features, the RVSP is probably normal or at most mildly elevated. No hemo- dynamicallysignificant valvular disease. 11/05/24 - Holter - Primary rhythm was Sinus Rhythm. Average heart rate was 87 bpm, Minimum heart rate was 69 bpm on Day 6. 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 She is currently on dose reduced Xarelto 15 mg daily and plavix 75 mg daily, and I am not sure about the indication for that. I am wondering if her Xarelto is f or DVT prophylaxis given that she she is wheelchair-bound, per Karly Gracia MD. . Respiratory: Does not have home oxygen. Patient has no dyspnea.no asthma: COPD (uses inhalers. follows up with facility doctor.): breathing at baseline.Has not had an upper respiratory infection in last 30 days. Has not had COVID in the last 30 days. HEENT: Does not have difficulty swallowing, chipped teeth, loose teeth or missing teeth.Does not have temporomandibular joint syndrome. Neurological: headaches. no seizures: a cerebrovascular accident (intraoperative ischemic stroke during mastectomy. due to left carotid stenosis.).Does not have TIA. hemiparesis (contracture to left wrist and leftshoulder.): left side hemiplegia: left side Musculoskeletal: arthritis. Does not have multiple sclerosis. [facility] additional comments: Hx Left AKA in 11/2023 secondary to infected left knee hardware. Autoimmune: Does not have lupus. Integumentary: Negative skin ROS. Gastrointestinal: GERD: well controlled.Does not have end stage liver disease or hepatitis. morbid obesity. GI/ additional comments: Gross hematuria. There is moderate bilateral hydroureter. There is urothelial thickening. There is peripelvic and periureteral stranding. Hydroureter extends to the level of the bladder. There is severe bladder wall thickening. Hx breast cancer; S/p mastectomy. Genitourinary: chronic renal disease (CKD 3a. 12/20/24 - Creat. 1.82/ BUN 34.): CRIrecurrent UTIs (currently taking antibiotics for recent UTI.). Hematological/Lymphatic: anemia (Hx MEHREEN.). History of DVT (02/18/16 - DVT in LE.). Received anticoagulation therapy. History of no pulmonary embolism. no history of chemotherapy no history of radiation MRSA (02/12/16.). Does not have AIDS, HIV or tuberculosis. Hem/Lymph ROS additional comments: Takes Plavix daily for heart and carotid stents. Takes Xarelto for DVT prophylaxis. Endocrine/Metabolic: diabetes mellitus type 2.well controlled. fasting morning glucose = 390. Does not have thyroid disorder. Does not have gout. Lab Results Component Value Date WBC 5.78 09/26/2024 HGB 10.6 (L) 09/26/2024 HCT 34.8 09/26/2024 MCV 83 09/26/2024 PLT 347 09/26/2024 Lab Results Component Value Date GLUCOSE 226 (H) 12/20/2024 BUN 34 (H) 12/20/2024 CREATININE 1.82 (H) 12/20/2024 BCR 19 12/20/2024 NA 134 (L) 12/20/2024 K 4.8 12/20/2024 CL 94 (L) 12/20/2024 CO2 28 12/20/2024 CA 9.0 12/04/2014 ALBUMIN 3.8 09/26/2024 ALKPHOS 106 08/18/2024 BILITOT <0.2 (L) 08/18/2024 Lab Results Component Value Date HGBA1C 8.8 (H) 03/05/2014 Lab Results Component Value Date INR 12/04/2014 1.6 (NOTE) OPTIMAL INR RANGES FOR PATIENT ON ORAL ANTICOAGULANT THERAPY Prevention of venous thromboembolism INR 2.0 to 3.0 In patients with heart disease: Atrial fibrillation INR 2.0 to 3.0 Valvular heart disease INR 2.0 to 3.0 Tissue heart valves INR 2.0 to 3.0 Mechanical prosthetic valves INR 2.5 to 3.5 Prevention of recurrent LA INR 2.5 to 3.5 INR 03/06/2014 1.0 (NOTE) OPTIMAL INR RANGES FOR PATIENT ON ORAL ANTICOAGULANT THERAPY Prevention of venous thromboembolism INR 2.0 to 3.0 In patients with heart disease: Atrial fibrillation INR 2.0 to 3.0 Valvular heart disease INR 2.0 to 3.0 Tissue heart valves INR 2.0 to 3.0 Mechanical prosthetic valves INR 2.5 to 3.5 Prevention of recurrent LA INR 2.5 to 3.5 INR 03/05/2014 1.0 (NOTE) OPTIMAL INR RANGES FOR PATIENT ON ORAL ANTICOAGULANT THERAPY Prevention of venous thromboembolism INR 2.0 to 3.0 In patients with heart disease: Atrial fibrillation INR 2.0 to 3.0 Valvular heart disease INR 2.0 to 3.0 Tissue heart valves INR 2.0 to 3.0 Mechanical prosthetic valves INR 2.5 to 3.5 Prevention of recurrent LA INR 2.5 to 3.5 Visit Vitals Wt 85.7 kg (189 lb) LMP (LMP Unknown) BMI 32.44 kg/m?? OB Status Postmenopausal Smoking Status Former BSA 1.97 m?? Physical Exam Airway Cardiovascular Dental Pulmonary Neurological (+) hemiplegia Skin Musculoskeletal Extremities Anesthesia Plan ASA 3 Anesthesia technique(s) discussed with the patient/family: general Comment: WAYLON phone screen with pt.'s nurse Gabriela, at [facility]. Discussed withDr. Wood and discussed with Dr. Ceci Mitchell, RE: holding Plavix and Xarelto. Pearl Chopra, CELLOPHANE BATH MIXER [1] Past 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: Diagnosis Date Anxiety Breast [...] (tract) infections History of urinary tract infection [2] Family History Problem Relation Name Age of Onset Cancer Mother Stroke Mother Cancer Father Menorrhagia Father Breast cancer Mother's Sister Cancer Mother's Sister Malig Hyperthermia Neg Hx Anesthesia problems Neg Hx [3] Social History Tobacco Use Smoking status: Former Current packs/day: 0.00 Types: Cigarettes Quit date: 07/22/2022 Years since quittin.5 Passive exposure: Past Smokeless tobacco: Never Vaping Use Vaping status: Never Used Substance Use Topics Alcohol use: Not Currently Drug use: Never [4] Past Surgical History: Procedure Laterality Date BREAST SURGERY N/A Breast Surgery Reconstruction from [facility] BREAST SURGERY N/A Breast Surgery from [facility] CHOLECYSTECTOMY N/A Cholecystotomy from [facility] KIDNEY SURGERY N/A Kidney Surgery from [facility] KNEE SURGERY N/A Knee Surgery from [facility] MASTECTOMY N/A Breast Surgery Mastectomy from [facility] SHOULDER SURGERY Right Shoulder Surgery Right from [facility] [5] Allergies Allergen Reactions Sulfa Drugs Anaphylaxis Ultram [Tramadol] Swelling lips swell Hydrocodone Unknown - Patient states they do not know rxn details [facility] is unaware of what reaction. Pedi-Pre Tape [place] [Wound Dressing Adhesive] Rash Wellbutrin [Bupropion] Rash [6] Current Outpatient Medications: acetaminophen, Take 1 tablet by mouth every 6 hours as needed. anastrozole, Take 1 tablet (1 mg total) by mouth daily. Artificial Tears, Administer 2 drops into both eyes 3 times a day as needed. ascorbic acid, Take 1 tablet by mouth twice a day. atorvastatin, Take 1 tablet by mouth daily. azelastine, Administer 2 sprays into each nostril 2 times a day. Use in each nostril as directed baclofen, Take 1 tablet by mouth 3 times a day. Breo Ellipta, Inhale 1 puff daily. calcitriol, Take 1 capsule by mouth daily. carvedilol, Take 1 tablet by mouth 2 times a day with meals. cholecalciferol, Take 1 tablet by mouth 2 times a day. clopidogrel, Take 1 tablet by mouth daily. cyanocobalamin, Take 1 tablet by mouth daily. D-Mannose, Take 2,000 mg by mouth 1 (one) time each day. diphenhydrAMINE, Take 1 tablet by mouth 2 times a day as needed for itching. DULoxetine, Take 1 capsule by mouth daily. Do not crush or chew. Take with 60mg capsule for a 90mg dose DULoxetine, Take 1 capsule by mouth daily. Do not crush or chew. Take with 30mg capsule for a 90mg dose estradiol, Insert 1 gram into the vagina 3x/week fentaNYL, Place 1 patch on the skin every 3rd (third) day. ferrous sulfate, Take 1 tablet by mouth daily with breakfast. fluticasone, Administer 1 spray into each nostril 2 times a day. guaiFENesin (GUAIASORB PO), Take 10 mL by mouth every 4 hours as needed. Fiasp, Inject as directed 2 (two) times a day. Per sliding scale @ 1130 and 1630 Basaglar WinstonikPen, Inject 70 Units under the skin 2 times a day. @ 0630 and 2000 ipratropium-albuterol, Take 3 mL by nebulization every 6 hours as needed. loperamide, Take 1 capsule by mouth every 4 hours as needed. magnesium oxide, Take 1 tablet by mouth 2 times a day. mirabegron ER, Take 1 tablet by mouth every morning. multivitamin, Take 1 tablet by mouth daily. ondansetron, Take 1 tablet by mouth every 6 hours as needed. oxyCODONE-acetaminophen, Take 1 tablet by mouth 2 (two) times a day if needed for severe pain. pantoprazole, Take 1 tablet by mouth daily before breakfast. pregabalin, Take 1 capsule (50 mg) by mouth 2 (two) times a day. rivaroxaban, Take 1 tablet by mouth every evening. Take with food. traZODone, Take 2 tablets by mouth nightly. trospium, Take 1 tablet (20 mg) by mouth 2 (two) times a day. ARIPiprazole, Take 1 tablet (5 mg) by mouth 1 (one) time each day. dextromethorphan-guaiFENesin, Take 10 mL by mouth every 4 (four) hours if needed. (Patient not taking: No sig reported) traZODone, Vibegron, Take 75 mg by mouth daily. Take one pill by mouth daily. (Patient not taking: Reported on01/24/2025) * Preprocedure Instructions - Pearl Chopra APRN - 01/24/2025 2:00 PM EDT Home Medication Instructions Current Medications Medication Instructions acetaminophen (Tylenol) 500 MG tablet Take as needed anastrozole (Arimidex) 1 MG chemo tablet Take morning of surgery Artificial Tears ophthalmic solution Take morning of surgery ascorbic acid (Vitamin C) 500 MG tablet Hold 7 days before surgery atorvastatin (Lipitor) 40 MG tablet Take morning of surgery azelastine (Astelin) 0.1 % nasal spray Take morning of surgery baclofen (Lioresal) 10 MG tablet Take morning of surgery Breo Ellipta 100-25 MCG/ACT aerosol powder Take morning of surgery calcitriol (Rocaltrol) 0.25 MCG capsule Hold 7 days before surgery carvedilol (Coreg) 12.5 MG tablet Take morning of surgery cholecalciferol (Vitamin D3) 25 MCG (1000 UT) tablet Hold 7 days before surgery clopidogrel (Plavix) 75 MG tablet Hold Plavix 7 days before surgery, per surgeon. cyanocobalamin (Vitamin B-12) 1000 MCG tablet Hold 7 days before surgery D-Mannose 500 MG capsule Hold day of surgery diphenhydrAMINE (Benadryl) 25 MG tablet Take as needed DULoxetine (Cymbalta) [address] capsule Take morning of surgery DULoxetine (Cymbalta) [address] capsule Take morning of surgery estradiol (Estrace) 0.1 MG/GM vaginal cream Hold day of surgery fentaNYL (Duragesic) 12 MCG/HR Remove patch when in PreOp just before surgery. ferrous sulfate 325 (65 Fe) MG tablet Hold day of surgery fluticasone (Flonase) 50 MCG/ACT nasal spray Take morning of surgery guaiFENesin (GUAIASORB PO) Take as needed insulin aspart, w/niacinamide, (Fiasp) 100 UNIT/ML solution vial Hold day of surgery insulin glargine (Basaglar KwikPen) 100 UNIT/ML injection pen Take 1/2 usual dose of your insulin night before surgery and day of surgery ipratropium-albuterol (Duo-Neb) 0.5-2.5 mg/3 mL nebulizer solution Take as needed loperamide (Imodium) 2 MG capsule Take as needed magnesium oxide (Mag-Ox) 400 mg tablet Hold 7 days before surgery mirabegron ER (Myrbetriq) 25 MG tablet Take morning of surgery multivitamin (Theragran-M) tablet Hold 7 days before surgery ondansetron (Zofran) 4 MG tablet Take as needed oxyCODONE-acetaminophen (Percocet) 5-325 MG tablet Take as needed pantoprazole (ProtoNix) 20 MG EC tablet Take morning of surgery pregabalin (Lyrica) 50 MG capsule Take morning of surgery rivaroxaban (Xarelto) 15 MG tablet Hold 3 days before surgery, per surgeon. traZODone (Desyrel) 150 MG tablet Take night before surgery trospium (Sanctura) 20 MG tablet Take morning of surgery Aspirin 81 mg - take 1 tablet daily including the morning of surgery, when not taking the Plavix. Stop aspirin when Plavix restarted. General Preoperative Instructions You will be called the business day before surgery with your arrival time Do not eat anything after midnight except water with your medications unless other instructions aregiven. Can drink clear liquids (water, Gatorade, non- carbonated sports drinks, or apple juice) up until 2 hours before arriving at the hospital. No alcohol or smoking prior to surgery Arrive on time to avoid delays Parking/Registration procedure explained You MUST have a responsible adult available for transport to and from hospital Visitation policy for the day of surgery reviewed Bring insurance card, photo ID, along with power of thread weaver, guardianship or advanced directives if applicable Do not bring money, jewelry or other valuables Hibiclens bathing instructions reviewed if applicable Notify surgeon of fever, illness, any changes or if you decide not to have surgery Pediatric patients under 12 years of age (If applicable) No solid food or milk after midnight Formula 6 hours prior to arrival for surgery Breast milk 4 hours prior to arrival surgery Clear liquids 2 hours prior to arrival for surgery Diabetes Instructions (If applicable) Take diabetes medication as instructed You may have up to 4 ounces of apple juice 2 hours prior to arrival for surgery for low glucose documented in this encounter Plan of Treatment Upcoming Encounters Date Type Department Care Team ([facility] st Contact Info) Description 03/27/2025 10:30 AM EDT Appointment [facility] Ultrasound [address], [address]nd [place] [id number] 03/27/2025 11:50 AM EDT Clinical Support Medical Office Building Lab [address] [place] [address] 03/27/2025 1:00 PM EDT Office Visit Medical Office Building Urology [address], [address] [place] [address] Cayla Erazo APRN, DNP [address] [place] [address] 05/16/2025 8:00 AM EDT Office Visit [facility] [place] [address], [address] [place] [address] Karly Gracia MD [address] [place] [address] 06/07/2025 1:00 PM EDT Office Visit [facility] [address] [place] [address] Tom Iraheta MD [address] [place] [address] documented as of this encounter Visit Diagnoses Not on filedocumented in this encounter Additional Health Concerns Infection [...] documented as of this encounter Care Teams Rn Placement Relationship Specialty Start Date End Date Vignesh Pickens MD [address] [place] [address] PCP - General 12/31/24 Cayla Erazo APRN, DNP [address] [place] [address] Nurse Practitioner Urology 12/20/24 documented as of this encounter
--- OUTSIDE RECORDS SUMMARY | 2025-01-31 08:03 | XMS_ITS | Encounter Summary ---
Author Organization [facility] Address [address] [place] [address] Care Team Providers Care Wedger Name Role Phone Cayla Erazo APRN, DNP Unavailable [phone] Vignesh Pickens MD Primary Care Provider [phone] Reason for Visit * Auth/Cert (Routine) Specialty Diagnoses / Procedures Referred By Contac t Referred To Contact Diagnoses Gross hematuria Gross hematuria Procedures MA CYSTO/URETERO/PYELOSC,BX &/OR FULG LESN URETEROSCOPY, WITH BIOPSY POSSIBLE STENT PLACEMENTS Ceci Mitchell MD [address] [address] Phone: tel: fax: [facility] [address] [place] [address] Phone: tel: Referral ID Status Reason Start Date Expiration Date Visits Re quested Visits Authorized [id number] 1 1 Encounter Details Date Type Department Care Team (Latest Contact Info) Description 01/31/2025 8:03 AM EDT - 01/31/2025 1:39 PM EDT Hospital Encounter [facility] [address] [place] [address] Ceci Mitchell MD [address] [address] Urinary retention (Primary Dx); Gross [...] time in the past 12 m [facility], were you homeless or living in [...] drink first t rodríguez in the morning (EYE-VEHICLE CONTROLS ENGINEER) to steady your nerves or to get rid of a hangover? 0 08/15/2024 CAGE Questionnaire Score 0 024 Utilities Answer Date Recorded In the past 12 months has e [employer], gas, oil, or water company threatened to [...] confirm your location ahead of your appointment) [facility] Urology Department Clinic at [facility] [address] [facility] [facility] [address], [address], [facility], [address] [place] [address] Clinic After Hours [facility] Office Building Urology Clinic [employer] [facility] [address] [place] [address] Clinic After Hours documented in this encounter [...] POSTOPERATIVE DIAGNOSIS: Same SURGEON: Ceci Mitchell MD TECHNICAL PRODUCER SURGEON(S): Gerry Cullen DO, Doug Lundy MD [...] the start of the case. A 19 Somali rigid cystoscope was introduced into the patient's [...] of the renal pelvis. We advanced a [place] catheter over our sensor wire and performed [...] leave stents bilaterally with strings. Used 7 Somali by 24 cm double-J stents on strings. These were placed without difficulty and intraoperative fluoroscopy was used to confirm appropriate positioning with the proximal curls in the renal pelvises bilaterally in the distal curls in the bladder. An 18 Somali García catheter was placed at the conclusion [...] Cullen DO PGY-3, Department of Urology Pager: [phone] Cosigned by Ceci Mitchell MD at 01/31/2025 [...] (cerebral infarction) COPD (chronic obstructive pulmonary disease) ([facility]) Depression Fibromyalgia History [...] BREAST SURGERY N/A Breast Surgery Reconstruction from [facility] BREAST SURGERY N/A Breast Surgery from [facility] CHOLECYSTECTOMY N/A Cholecystotomy from [facility] KIDNEY SURGERY N/A Kidney Surgery from [facility] KNEE SURGERY N/A Knee Surgery from [facility] MASTECTOMY N/A Breast Surgery Mastectomy from [facility] SHOULDER SURGERY Right Shoulder Surgery Right from [facility] [3] No medications prior to admission. [4] Allergies Allergen Reactions Sulfa Drugs Anaphylaxis Ultram [Tramadol] Swelling lips swell Hydrocodone Unknown - Patient states they do not know rxn details [facility] is unaware of what reaction. Pedi-Pre Tape [place] [Wound Dressing Adhesive] Rash Wellbutrin [Bupropion] Rash [...] Team (Late st Contact Info) Description 03/27/2025 10:30 AM EDT Appointment [facility] Ultrasound [address] [place] [address] 03/27/2025 11:50 AM EDT Clinical Support Medical Office Building Lab [address] [place] [address] 03/27/2025 1:00 PM EDT Office Visit Medical Office Building Urology [address] [facility], [address] [place] [address] Cayla Erazo, SALES SUPPORT ADMINISTRATOR, DNP [address] [place] [address] 05/16/2025 8:00 AM EDT Office Visit [facility] [address] [facility], [address] [place] [address] Karly Gracia MD [address] [place] [address] 06/07/2025 1:00 PM EDT Office Visit [facility] [address] [facility] [address] [place] [address] Tom Iraheta MD [address] [place] [address] documented as of this encounter Procedures Procedure Name Priority Date/Time Associated Diagnosis Comments POCT GLUCOSE METER UNSOLICITED RESULTS Routine 01/31/2025 11:39 AM EDT [place] LESS THAN 1 HOUR (NON-REPORTABLE) Routine 01/31/2025 11:14 AM EDT FUNGAL CULTURE, ROUTINE Routine 01/31/2025 10:23 AM EDT Gross hematuria URINE CULTURE Routine 01/31/2025 10:22 AM EDT Gross hematuria MA CYSTO/URETERO/PYELOS C,BX &/OR FULG LESN 01/31/2025 9:32 [...] Comment 01/31/2025 11:41 AM EDT HEALTHCARE LAB Experience Design Director ID Abbey Medina 01/31/2025 11:41 AM EDT HEALTHCARE LAB Device ID [id number] 01/31/2025 11:41 AM EDT [facility] Specimen Type POC Capillary 01/31/2025 11:41 AM EDT [facility] Blood Capillary blood specimen / Unknown 01/31/2025 11:39 AM EDT 01/31/2025 11:41 AM EDT Result [facility] Ceci Mitchell MD LAB POINT OF CARE TE ST DOCKED DEVICE UNSOLICITED RESULTS Final Result HEALTHCARE LAB [address] [place] [address] * [place] Less than 1 Hour Intraoperative (01/31/2025 11:14 AM EDT) Narrative IMAGING - 01/31/2025 11:15 AM EDT Images were obtained for surgical purposes. See Ceci Mitchell's surgical note in the patient's chart for the findings. Result [facility] Ceci Mitchell MD IMG FLUOROSCOPY PROCEDURES F inal Result IMAGING * (ABNORMAL) Fungal Culture, Routine (01/31/2025 10:23 AM EDT) Culture Confluent Growth Maira glabrata(A) 02/08/2025 11:50 AM EDT [facility] Urine Urinary bladder structure / Unknown 01/31/2025 10:23 AM EDT 01/31/2025 11:38 AM EDT Comment:Pre-op diagnosis: Gross hematuria us Ceci Mitchell MD LAB MICROBIOLOGY - GENERAL O RDERABLES Final Result Performing Organization Address City/[facility]/ZIP Co de Phone Number [facility] [address] [place] [address] * Urine Culture (01/31/2025 10:22 AM EDT) Culture No growth at day 1 02/01/2025 8:02 AM EDT [facility] Urine Urinary bladder structure / Unknown 01/31/2025 10:22 AM EDT 01/31/2025 11:38 AM EDT Comment:Pre-op diagnosis: Gross hematuria us Ceci Mitchell MD LAB MICROBIOLOGY - GENERAL O RDERABLES Final Result Performing Organization Address [facility] Co de Phone Number [facility] [address] [place] [address] * (ABNORMAL) POCT glucose meter (01/31/2025 8:47 AM EDT) Pathologist [facility] POCT Glucose 135(H) 74 - 99 mg/dL [...] 01/31/2025 8:49 AM EDT [facility] Experience Design Director ID Khai Jamison 02/01/20 8:49 AM EDT [facility] Device ID [id number] 01/31/2025 8:49 AM EDT [facility] Specimen Type POC Capillary 01/31/2025 8:49 AM EDT HEALTHCARE LAB Blood Capillary blood specimen / Unknown 01/31/2025 8:47 AM EDT 01/31/2025 8:49 AM EDT us Ceci Mitchell MD LAB POINT OF CARE TE ST DOCKED DEVICE UNSOLICITED RESULTS Final Result Performing Organization Address City/[facility]/ZIP Co de Phone Number HEALTHCARE LAB [address] [place] [address] documented in this encounter Visit Diagnoses Diagnosis [...] min PRN, 2 doses, Starting on Hermelinda 6/12/25 at 1102, Until Hermelinda 6 at 1539, Routine, Recovery (Phase I only), pain score of 5-8 out of 10 iohexol (OMNIPaque) 300 MG/ML injection (CANCELED) As needed, Starting on Hermelinda 6 at 1017, Until Hermelinda 6 at 1125, Routine, Intraprocedure 1017 (Given - Provid er: Ceci Mitchlel MD) naloxone (Narcan) injection 0.4 mg 0.4 mg, Intravenous, As needed, Starting on Hermelinda 6 at 1102, Until Hermelinda 6 at 1539, Routine, Recovery (Phase I only), respiratory depression ondansetron (Zofran) injection 4 mg 4 mg, Intravenous, Once as needed, 1 dose, Starting on Hermelinda 01/31/25 at 1102, Until Hermelinda 6 at 1539, [...] as needed, 2 doses, Starting on Hermelinda 6 at 1102, Until Hermelinda 01/31/25 at 1539, [...] documented as of this encounter Care Teams Wedger Relationship Specialty Start Date End Date Vignesh Pickens MD [address] [place] [address] PCP - General 12/31/24 Cayla Erazo APRN, DNP [address] [facility] [address] [place] [address] Nurse Practitioner Urology 12/20/24 documented as of this encounter
--- OUTSIDE RECORDS SUMMARY | 2025-01-31 08:55 | XMS_ITS | Encounter Summary ---
Author Organization Healthcare Address [address] [place] [address] Care Team Providers Care Caustic Room Attendant Name Role Phone Cayla Erazo APRN, DNP Unavailable [phone] Vignesh Picekns MD Primary Care Provider [phone] Reason for Visit * Auth/Cert (Routine) Specialty Diagnoses / Procedures Referred By Contelvie t Referred To Contact Diagnoses Gross hematuria Gross hematuria Procedures GA CYSTO/URETERO/PYELOSC,BX &/OR FULG LESN URETEROSCOPY, WITH BIOPSY POSSIBLE STENT PLACEMENTS Ceci Mitchell MD [address] [address] Phone: tel: fax: [facility] [address] [place] [address] Phone: tel: Referral ID Status Reason Start Date Expiration Date Visits Re quested Visits Authorized [id number] 1 1 Encounter Details Date Type Department Care Team (Late st Contact Info) Description 01/31/2025 8:55 AM EDT - 01/31/2025 10:10 AM EDT Surgery [facility] [address] [place] [address] Ceci Mitchell MD [address] [address] URETEROSCOPY,CYSTOSCOP Y, RETROGRADE PYELOGRAM, BILATERAL STENT PLACEMENT [45434 (CPT )] Surgery Details Date/Time Status Location OR Service Patient Class Case Class Case Type Trauma Case? 01/31/2025 8:55 AM Posted [facility] E-Electiv e Panel 1 Procedure [...] in the past 12 m [facility], were you homeless or living in [...] drink first t rodríguez in the morning (EYE-GREETING CARD WRITER) to steady your nerves or to get [...] confirm your location ahead of your appointment) [facility] Urology Department Clinic at [facility] [address], [address] Floor, Wing [address], [address] [place] [address] Clinic After Hours [facility] Medical Office Building Urology Clinic [address] [place] [address] Clinic After Hours documented in this encounter [...] POSTOPERATIVE DIAGNOSIS: Same SURGEON: Ceci Mitchell MD DISINTEGRATOR OPERATOR SURGEON(S): Gerry Cullen DO, Doug Lundy MD [...] the start of the case. A 19 Jordanian rigid cystoscope was introduced into the patient's [...] of the renal pelvis. We advanced a [place] catheter over our sensor wire and performed [...] the orifice with the assistance of a Inspirotecenstein catheter, and advanced a wire up to [...] leave stents bilaterally with strings. Used 7 Jordanian by 24 cm double-J stents on strings. These were placed without difficulty and intraoperative fluoroscopy was used to confirm appropriate positioning with the proximal curls in the renal pelvises bilaterally in the distal curls in the bladder. An 18 Jordanian García catheter was placed at the conclusion [...] Cullen DO PGY-3, Department of Urology Pager: [phone] Cosigned by Ceci Mitchell MD at 01/31/2025 [...] BREAST SURGERY N/A Breast Surgery Reconstruction from [facility] BREAST SURGERY N/A Breast Surgery from [facility] CHOLECYSTECTOMY N/A Cholecystotomy from [facility] KIDNEY SURGERY N/A Kidney Surgery from [facility] KNEE SURGERY N/A Knee Surgery from [facility] MASTECTOMY N/A Breast Surgery Mastectomy from [facility] SHOULDER SURGERY Right Shoulder Surgery Right from [facility] [3] No medications prior to admission. [4] Allergies Allergen Reactions Sulfa Drugs Anaphylaxis Ultram [Tramadol] Swelling lips swell Hydrocodone Unknown - Patient states they do not know rxn details [facility] is unaware of what reaction. Pedi-Pre Tape [place] [Wound Dressing Adhesive] Rash Wellbutrin [Bupropion] Rash [...] 01/31/2025 9:51 AM EDT Associated attestation - eCci Mitchell MD - 01/31/2025 9:51 AM EDT I saw and evaluated the patient. I discussed the case with the resident/fellow and agree with the findings and plan as documented. documented in this encounter Plan of Treatment Upcoming Encounters Date Type Department Care Team (Late st Contact Info) Description 03/27/2025 10:30 AM EDT Appointment [facility] Ultrasound [address]nd [place] [address] 03/27/2025 11:50 AM EDT Clinical Support Medical Office Building Lab [address] [place] [address] 03/27/2025 1:00 PM EDT Office Visit Medical Office Building Urology [address] [facility], [address] [place] [address] Cayla Erazo, ELEVATOR SERVICE MECHANIC, DNP [address] [place] [address] 05/16/2025 8:00 AM EDT Office Visit [facility] [place] [address] [facility], [address] [place] [address] Karly Gracia MD [address] [place] [address] 06/07/2025 1:00 PM EDT Office Visit [facility] [address] [place] [address] Tom Iraheta MD [address] [place] [address] documented as of this encounter Procedures Procedure Name Priority Date/Time Associated Diagnosis Comments POCT GLUCOSE METER UNSOLICITED RESULTS Routine 01/31/2025 11:39 AM EDT FL LESS THAN 1 HOUR (NON-REPORTABLE) Routine 01/31/2025 11:14 AM EDT FUNGAL CULTURE, ROUTINE Routine 01/31/2025 10:23 AM EDT Gross hematuria URINE CULTURE Routine 01/31/2025 10:22 AM EDT Gross hematuria GA CYSTO/URETERO/PYELOS C,BX &/OR FULG LESN 01/31/2025 9:32 [...] 01/31/2025 11:41 AM EDT [facility] Beef Specialist ID Abbey Medina 01/31/2025 11:41 AM EDT HEALTHCARE LAB Device ID [id number] 01/31/2025 11:41 AM EDT [facility] Specimen Type POC Capillary 01/31/2025 11:41 AM EDT [facility] Blood Capillary blood specimen / Unknown 01/31/2025 11:39 AM EDT 01/31/2025 11:41 AM EDT Ceci Mitchell MD LAB POINT OF CARE TE ST DOCKED DEVICE UNSOLICITED RESULTS Final Result Performing Organization Address City/[facility]/ZIP Co de Phone Number [facility] [address] [place] [address] * [place] Less than 1 Hour Intraoperative [...] Growth Maira glabrata(A) 02/08/2025 11:50 AM EDT [facility] Urine Urinary bladder structure / Unknown 01/31/2025 10:23 AM EDT 01/31/2025 11:38 AM EDT Comment:Pre-op diagnosis: Gross hematuria Ceci Mitchell MD LAB MICROBIOLOGY - GENERAL O RDERABLES Final Result Performing Organization Address City/[facility]/ZIP Co de Phone Number [facility] [address] [place] [address] * Urine Culture (01/31/2025 10:22 AM EDT) Culture No growth at day 1 02/01/2025 8:02 AM EDT [facility] Urine Urinary bladder structure / Unknown 01/31/2025 10:22 AM EDT 01/31/2025 11:38 AM EDT Comment:Pre-op diagnosis: Gross hematuria Ceci Mitchell MD LAB MICROBIOLOGY - GENERAL O RDERABLES Final Result Performing Organization Address City/[facility] [place] [address] * (ABNORMAL) POCT glucose meter (01/31/2025 8:47 [...] 01/31/2025 8:49 AM EDT [facility] Beef Specialist ID Khai Jamison 02/01/20 8:49 AM EDT [facility] Device ID [id number] 01/31/2025 8:49 AM EDT HEALTHCARE LAB Specimen Type POC Capillary 01/31/2025 8:49 AM EDT HEALTH[facility]ARE LAB Blood Capillary blood specimen / Unknown 01/31/2025 8:47 AM EDT 01/31/2025 8:49 AM EDT Ceci Mitchell MD LAB POINT OF CARE TE ST DOCKED DEVICE UNSOLICITED RESULTS Final Result [facility]ARE [facility] [address] [place] [address] documented in this encounter Visit Diagnoses Diagnosis [...] on Hermelinda 625 at 1102, Until Hermelinda 25 at 1539, Routine, Recovery (Phase I only), pain score of 5-8 out of 10 iohexol (OMNIPaque) 300 MG/ML injection (CANCELED) As needed, Starting on Hermelinda 6/25 at 1017, Until Hermelinda 6/25 at 1125, Routine, Intraprocedure 1017 (Given - Provid er: Ceci Mitchell MD) naloxone (Narcan) injection 0.4 mg 0.4 mg, Intravenous, As needed, Starting on Hermelinda 6//25 at 1102, Until Hermelinda 6/25 at 1539, Routine, Recovery (Phase I only), respiratory depression ondansetron (Zofran) injection 4 mg 4 mg, Intravenous, Once as needed, 1 dose, Starting on Hermelinda 6/25 at 1102, Until [...] documented as of this encounter Care Teams Caustic Room Attendant Relationship Specialty Start Date End Date Vignesh Pickens MD [address] [place] [address] PCP - General 12/31/24 Cayla Erazo APRN, DNP [address] [facility] [address] [place] [address] Nurse Practitioner Urology 12/20/24 documented as of this encounter
--- OUTSIDE RECORDS SUMMARY | 2025-01-31 09:48 | XMS_ITS | Encounter Summary ---
Author Organization Healthcare Address [address] [place] [address] Care Team Providers Care Electric Serviceman Name Role Phone Cayla Erazo APRN, FREDERICK Unavailable [phone] Vignesh Pickens MD Primary Care Provider [phone] Reason for Visit * Auth/Cert (Routine) Specialty Diagnoses / Procedures Referred By Clara stoner Referred To Contact Diagnoses Gross hematuria Gross hematuria Procedures [place] CYSTO/URETERO/PYELOSC,BX &/OR FULG LESN URETEROSCOPY, WITH BIOPSY POSSIBLE STENT PLACEMENTS Ceci Mitchell MD [address] [facility] [address] [place] [address] Phone: tel: fax: [facility] [address] [place] [address] Phone: tel: Referral ID Status Reason Start Date Expiration Date Visits Re quested Visits Authorized [id number] 1 1 Encounter Details Date Type Department Care Team (Late st Contact Info) Description 01/31/2025 9:48 AM EDT Anesthesia Event [facility] [address] [place] [id number] Nj Sears MD [address] [place] [address] Anesthesia Record Procedure Summary Procedure [...] Hand; Site Prep: Chlorhexidine ; Local Anesth: [place]; Technique: Anatomical landmarks; Inserted by: james orosco [...] No change to dentition. ; Placed by: POWER HAIR CLIPPER; Removal Date: 01/31/25; Removal Time: 1122 01/31/25 [...] time in the past 12 m [facility], were you homeless or living in a correction (including now)? No 08/20/2024 CAGE ASSESSMENT Answer [...] drink first t rodríguez in the morning (EYE-CURTAIN DRIER) to steady your nerves or to get rid of a hangover? 0 08/15/2024 CAGE Questionnaire Score 0 024 Utilities Answer Date Recorded In the past 12 months has e [employer], gas, oil, or water [employer] threatened to shut off services in your [...] and Staff Patient location during procedure: OR POWER HAIR CLIPPER: Migue Seay CRNA Performed: POWER HAIR CLIPPER Patient Condition Indications for airway management: anesthesia [...] WITH BIOPSY POSSIBLE STENT PLACEMENTS (Bilateral) Location: [address] / [place] Surgeons: Ceci Mitchell MD Department of [...] were no vitals filed for this visit. [place] body weight: 54.7 kg (120 lb 9.5 [...] Abnormal Ventricular Rate 77 Atrial Rate 77 [place] Interval 180 QRSD Interval 124 QT Interval 416 QTC Interval 470 P [place] 23 R [place] 268 T Wave [place] 67 Diagnosis Normal sinus rhythm Diagnosis Right [...] valvular disease. PFTs No results found for: [id number] , [id number] , [id number] , FVCPRED Relevant Problems Cardio (+) Asymptomatic bilateral carotid artery stenosis (+) Atrial premature depolarization (+) CAD (coronary artery disease), [place] coronary artery (+) Deep venous thrombosis of [...] Plan ASA 3 Plan was reviewed with: POWER HAIR CLIPPER Anesthesia technique(s) discussed with the patient/family: general [...] BREAST SURGERY N/A Breast Surgery Reconstruction from [facility] [employer] BREAST SURGERY N/A Breast Surgery from [facility] CHOLECYSTECTOMY N/A Cholecystotomy from [employer] KIDNEY SURGERY N/A Kidney Surgery from [facility] KNEE SURGERY N/A Knee Surgery from [employer] MASTECTOMY N/A Breast Surgery Mastectomy from [employer] SHOULDER SURGERY Right Shoulder Surgery Right from [employer] [3] Allergies Allergen Reactions Sulfa Drugs Anaphylaxis Ultram [Tramadol] Swelling lips swell Hydrocodone Unknown - Patient states they do not know rxn details [facility] is unaware of what reaction. Pedi-Pre Tape [place] [Wound Dressing Adhesive] Rash Wellbutrin [Bupropion] Rash [...] Info) Description 03/27/2025 10:30 AM EDT Appointment [facility] Ultrasound [address] [place] [address] 03/27/2025 11:50 AM EDT Clinical Support Medical Office Building Lab [address] [place] [address] 03/27/2025 1:00 PM EDT Office Visit Medical Office Building Urology [address] [facility], [address] [place] [address] Cayla Erazo, PAPER TWISTER TENDER, DNP [address] [place] [address] 05/16/2025 8:00 AM EDT Office Visit [facility] [place] [address] [facility], [address] [place] [address] Karly Gracia MD [address] [place] [address] 06/07/2025 1:00 PM EDT Office Visit [facility] [address] [place] [address] Tom Iraheta MD [address] [place] [address] documented as of this encounter Procedures Procedure Name Priority Date/Time Associated Diagnosis Comments PB ANESTHESIA PLACEHOLDER Routine 01/31/2025 9:58 AM EDT NC AN ELECTIVE ENDOTRACHEAL AIRWAY Routine 01/31/2025 9:58 AM EDT documented in this encounter Results * NC AN ELECTIVE ENDOTRACHEAL AIRWAY, PB ANESTHESIA PLACEHOLDER (01/31/2025 9:58 AM EDT) Narrative Migue Seay CRNA - 01/31/2025 9:58 AM EDT Migue Seay CRNA 01/31/2025 10:45 AM Airway Date/Time: 01/31/2025 9:58 AM Reason: elective Airway not difficult General Information and Staff Patient location during procedure: OR POWER HAIR CLIPPER: Migue Seay CRNA Performed: LORETTA Patient Condition [...] documented as of this encounter Care Teams Electric Serviceman Relationship Specialty Start Date End Date Vignesh Pickens MD [address] [place] [address] PCP - General 12/31/24 Cayla Erazo APRN, DNP [address] [facility] [address] [place] [address] Nurse Practitioner Urology 12/20/24 documented as of this encounter
--- OUTSIDE RECORDS SUMMARY | 2025-02-22 18:13 | XMS_ITS | Encounter Summary ---
Author Organization [facility] Address [address] [id number] Care Team Providers Care Distillery Miller Name Role Phone Cayla Erazo APRN, DNP Unavailable [phone] Vignesh Pickens MD Primary Care Provider [phone] Reason for Visit * Reason Comments Altered Mental Status * Auth/Cert (Routine) Specialty Diagnoses / Procedures Referred By Contac t Referred To Contact Diagnoses Sepsis (CMS/HCC) UTI, CKD, Hyponatremia, COPD exacerbation Bobby Parra MD [address] [place] [address] Phone: tel: fax: [facility] Inpatient [address] [place] [address] Referral ID Status Reason Start Date Expiration Date Visits Re quested Visits Authorized [id number] 1 1 Encounter Details Date Type Department Care Team (Latest Contact Info) Description 02/22/2025 6:13 PM EDT - 03/02/2025 11:04 AM EDT Hospital Encounter [facility]patient [address] [place] [id number] Luda Morton MD [address] [place] [address] Bobby Parra MD [address] [place] [address] Luda Ralph MD [address] [place] [address] Ludy Hill MD [address] [facility] [address] [place] [address] Madonna Singleton MD [address] [place] [address] Acute respiratory failure with hypoxia [...] organism (CMS/HCC); Chronic diastolic (congestive) heart failure ([facility]/HCC); 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 Discharge Disposition: Usp Facility Social History Tobacco Use Types Packs/Day [...] first t rodríguez in the morning ([employer]) to steady your nerves or to [...] as of this encounter Miscellaneous Notes * Significant Event - Madonna Singleton MD [...] Transition Flowsheets Taken 02/28/2025 0816 by Gayle Light, RN Progress: improving Outcome Evaluation: continue current [...] Position: turned Taken 02/28/2025 08 by Gayle Light, RN Skin Protection: incontinence pads utilized Intervention: Prevent and Manage VTE (Venous Thromboembolism) Risk Flowsheets (Taken 03/02/2025 0800) VTE Prevention/Management: SCDs (sequential compression devices) [...] Anthony Vaughn Discharge Facility/Level of Care Needs: 3-Usp Facility Current Outpatient/Agency/Support Group: long-term facility Transportation Anticipated: ([facility]) other (see comments) Outpatient/Agency/Support Group Needs: long-term facility Transportation Concerns: none Concerns to be Addressed: discharge planning Readmission Within the Last 30 Days: other (see comments) Patient/Family Anticipated Services at Transition: long-term rehabilitation services Patient/Family Anticipates Transition to: long-term [...] Transition Intervention: Optimize Glycemic Control Flowsheets (Taken 02/22/2025 2234 by Daniela Mcbride, RN) Hyperglycemia Management: blood glucose monitored Hypoglycemia Management: blood glucose monitored Goal: Absence of Infection Signs and Symptoms Outcome: Adequate for Care Transition Intervention: Initiate Sepsis Management Flowsheets Taken 03/02/2025 08 by Stefanie Frances I Isolation Precautions: precautions maintained Taken 02/28/2025815 by Gayle Light RN Infection Management: aseptic technique maintained Taken 02/24/20252002 by Daniela Mcbride RN Stabilization Measures: airway opened Taken 02/22/2025 2234 by Daniela Mcbride RN Infection Prevention: environmental surveillance performed Intervention: Promote Stabilization Flowsheets Taken 02/28/2025815 by Gayle Light RN Fluid/Electrolyte Management: fluids adjusted Fever Reduction/Comfort Measures: lightweight bedding lightweight clothing Taken 02/23/2025 1254 by Temi Mao RN Lung Protection Measures: fluid excess minimized Intervention: Promote Recovery Flowsheets Taken 03/02/2025 08 by Stfeanie Frances I Activity Management: activity adjusted per tolerance activity encouraged Taken 02/28/2025 08 by Gayle Light RN [...] Care Transition Intervention: Promote Activity and Functional Pike Flowsheets Taken 03/02/2025 08 by Gayle Light RN Activity Assistance Provided: assistance, 2 people Taken 02/28/2025 08 by Gayle Light RN Adaptive Equipment Use: use encouraged Taken 02/26/2025 1750 by Bassem Jay RN Self-Care Promotion: independence encouraged Problem: Skin Injury Risk Increased Goal: Skin Health and Integrity Outcome: Adequate for Care Transition Intervention: Optimize Skin Protection Flowsheets Taken 03/02/2025 0800 by Stefanie Frances I Activity Management: activity adjusted per tolerance activity encouraged Head of Bed (HOB) Positioning: HOB at 30-45 degrees Taken 02/28/2025 0816 by Gayle Light RN [...] Contributors Flowsheets Taken 02/26/2025 1750 by Bassem Jay, RN Self-Care Promotion: independence encouraged Taken 02/23/2025 [...] EDT Patient discharged at approximately 1040 via [facility] wheelchair transport. Report called to JHONNY Hawkins at [facility] in [place]. All appropriate paperwork and personal belongings sent withpatient. * Lawanda Garcias - Gayle Light RN - 03/02/2025 9:03 AM EDT Images from the original note were not included. [id number] Sepsis Sepsis is a very serious condition. [...] (ICU). Last Reviewed Date: 2023 00:00:00 ?? [id number] [employer]. All rights reserved. This information is not intended as a substitute for professional medical care. Always follow your healthcare professional's instructions. * Lawanda Garcias - Gayle Light, RN - 03/02/2025 9:03 AM EDT Images from the original note were not included. [id number] Discharge Instructions for Acute Kidney Injury You [...] tiredness Last Reviewed Date: 2022 00:00:00 ?? [id number] [employer]. All rights reserved. This information is not intended as a substitute for professional medical care. Always follow your healthcare professional's instructions. * Discharge Summary - Madonna Singleton MD - 03/02/2025 8:47 AM EDT Hospitalization Admit Date/Time: 02/22/2025 6:13 PM Admitting Attending: Bobby Parra Discharge Date: 03/02/25 Discharge Attending Physician: Madonna Singleton MD PCP name and Address: Vignesh Pickens MD [address] [facility] / [place] [address] Referring provider name and address: Jordan Carl MD [address] [facility] [address] [facility] Chief Concern, Brief History of Present Illness, [...] negative infectious workup. [facility]. Currently saturating well [...] PAL MURF, Bcx NGTD S/p extubation [facility]24[facility] SPO[facility] 92%+ PLAN: Supportive care for [...] resumed home meds continue Mirabegron HFrEF 2/2 [facility] - 11/2024 LVEF 35-40% - Current GDMT: [...] 120 at OSH, [address] [facility] - Serum osm wnl, urine osm 408 with Na 31 PLAN: -Na 132 / Acute Encephalopathy, resolved - metabolic vs toxic [...] Your Medications These medications were sent to [facility] [place] [address] [address] [facility] [address] fentaNYL 12 MCG/HR naloxone 4 mg/0.1 mL [...] Resolved Hospital Problems Hospital * (Principal) Sepsis (CMS/HCC) Post Discharge Instructions Take meds as precribed Outpatient Follow-Up Future Appointments Date Time Provider Department Center 03/07/2025 10:00 AM Doug Chapman MD [facility] 03/27/2025 10:30 AM GS US 3 USGSGSH [facility] 03/27/2025 11:50 AM [facility] M[facility] 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 female CSN: [id number] Admission: 02/22/2025 6:13 PM Primary Problem: Sepsis [...] Chair transport scheduled today at 9am To: [facility] Report: [phone] Discharge Summary fax: [phone] Escribe new meds/controls to: [facility] Jeanette SW will remain available through discharge if needs arise. Daniela Thomas INFORMATION SYSTEMS PROJECT MANAGER, STREET CAR MECHANIC Supervisor Dials * Lawanda Light, Gayle N, JIMI - 03/02/2025 8:44 AM EDT Images from the original note were not included. [id number] Acute Kidney Injury: Care Instructions Overview Acute [...] this instruction, always ask your healthcare professional. [employer] disclaims any warranty or liability for your use of this information. ?? [id number] [employer]. * [facility] - Gayle Light RN - 03/02/2025 8:44 AM EDT Images from the original note were not included. [address] Urinary Tract Infections in Women Urinary tract [...] started. Last Reviewed Date: 2023 00:00:00 ?? [id number] [employer]. All rights reserved. This information is not intended as a substitute for professional medical care. Always follow your healthcare professional's instructions. * Care Plan - Aleyda Holley RN - 03/01/2025 10:48 PM EDT Problem: Sepsis/Septic Shock Goal: Absence of Bleeding Outcome: Adequate for Care Transition Goal: Blood Glucose Level Within Target Range 03/01/20252247 by Aleyda Holley RN Outcome: Ongoing, Progressing 03/01/20252242 by Aleyda Holley RN Outcome: Ongoing, Progressing Intervention: Optimize Glycemic Control 03/01/20252247 by Aleyda Holley RN Flowsheets (Taken 02/22/20252233 by Daniela Mcbride RN) Hyperglycemia Management: blood glucose monitored Hypoglycemia Management: blood glucose monitored 03/01/20252242 by Aleyda Holley RN Flowsheets (Taken 02/22/20252233 by Daniela Mcbride, JIMI) Hyperglycemia Management: blood glucose monitored Hypoglycemia Management: blood glucose monitored Goal: Absence of Infection Signs and Symptoms 03/01/20252247 by Aleyda Holley RN Outcome: Ongoing, Progressing 03/01/20252242 by Aleyda Holley RN Outcome: Ongoing, Progressing Intervention: Initiate Sepsis Management 03/01/20252247 by Aleyda Holley RN Flowsheets Taken 03/01/2025799 by Gayle Light RN Isolation Precautions: protective Taken 02/28/2025 0816 by Gayle Light, RN Infection Management: aseptic technique maintained Taken 02/24/20252002 by Daniela Mcbride RN Stabilization Measures: airway opened Taken 02/22/20252233 by Daniela Mcbride RN Infection Prevention: environmental surveillance performed 03/01/20252242 by Aleyda Holley RN Flowsheets Taken 03/01/2025 08 by Gayle Light RN Isolation Precautions: protective Taken 02/28/2025 08 by Gayle Light RN Infection Management: aseptic technique maintained Taken 02/24/20252002 by Daniela Mcbride RN Stabilization Measures: airway opened Taken 02/22/20252233 by Daniela Mcbride RN Infection Prevention: environmental surveillance performed Intervention: Promote Stabilization 03/01/20252247 by Aleyda Holley RN Flowsheets Taken 02/28/2025 08 by Gayle Light RN Fluid/Electrolyte Management: fluids [...] Measures: fluid excess minimized Intervention: Promote Recovery 03/01/20252247 by Aleyda Holley RN Flowsheets Taken [...] Goal: Absence of Infection Signs and Symptoms 03/01/2025 2246 by Aleyda Holley RN Outcome: Adequate for [...] Goal (Individualized) Outcome: Ongoing, Progressing Flowsheets (Taken 03/01/20252240) Patient/Family-Specific Goals (Include Timeframe): Patient will be [...] Risk Flowsheets (Taken 03/01/2025 1600 by Gayle Light, RN) VTE Prevention/Management: bilateral SCDs (sequential compression devices) on Goal: Optimal Comfort and Wellbeing Outcome: Ongoing, Progressing Intervention: Monitor Pain and Promote Comfort Flowsheets (Taken 03/01/2025 2243) Pain Management Interventions: emotional support ambulation/increased activity Goal: Readiness for Transition of Care Outcome: Ongoing, Progressing Intervention: Mutually Develop Transition Plan Flowsheets Taken 03/01/2025 0925 by Anthony Vaughn Discharge Facility/Level of Care Needs: 3-Usp Facility Current Outpatient/Agency/Support Group: long-term facility Transportation Anticipated: ([facility]) other (see comments) Outpatient/Agency/Support Group Needs: long-term facility Transportation Concerns: none Concerns to be Addressed: discharge planning Readmission Within the Last 30 Days: other (see comments) Patient/Family Anticipated Services at Transition: long-term rehabilitation services Patient/Family Anticipates Transition to: long-term [...] Anthony Vaughn Discharge Facility/Level of Care Needs: 3-Usp Facility Current Outpatient/Agency/Support Group: long-term facility Transportation Anticipated: ([facility]) other (see comments) Outpatient/Agency/Support Group Needs: long-term facility Transportation Concerns: none Concerns to be Addressed: discharge planning Readmission Within the Last 30 Days: other (see comments) Patient/Family Anticipated Services at Transition: long-term rehabilitation services Patient/Family Anticipates Transition to: long-term care facility Taken 02/28/2025 08 by Gayle Light RN Equipment Needed After [...] Control Flowsheets (Taken 02/22/20252233 by Daniela Mcbride, JIMI) Hyperglycemia Management: blood glucose monitored Hypoglycemia Management: blood glucose monitored Goal: Absence of Infection Signs and Symptoms Outcome: Ongoing, Progressing Intervention: Initiate Sepsis Management Flowsheets Taken 03/01/2025 0800 by Gayle Light RN Isolation Precautions: protective Taken 02/28/2025 08 by Gayle Light RN Infection Management: aseptic technique maintained Taken 02/24/20252002 by Daniela Mcbride, JIMI Stabilization Measures: airway opened Taken 02/22/20252233 by Daniela Mcbride RN Infection Prevention: environmental surveillance performed Intervention: Promote Stabilization Flowsheets Taken 02/28/2025 08 by Gayle Light RN Fluid/Electrolyte Management: fluids adjusted Fever Reduction/Comfort Measures: lightweight bedding lightweight clothing Taken 02/23/2025 1254 by Temi Mao RN Lung Protection Measures: fluid excess minimized Intervention: Promote Recovery Flowsheets Taken 03/01/2025 08 Activity Management: bedrest activity adjusted per tolerance Taken 02/28/2025 0816 Airway/Ventilation Management: airway patency maintained calming measures [...] Ongoing, Progressing Intervention: Promote Activity and Functional Pike Flowsheets Taken 03/01/2025 08 by Gayle Light RN Activity Assistance Provided: assistance, 2 people Taken 02/28/2025 0816 by Gayle Light RN Adaptive Equipment Use: use encouraged Taken 02/26/2025 175 by Bassem Jay RN Self-Care Promotion: independence encouraged Problem: Skin Injury Risk Increased Goal: Skin Health and Integrity Outcome: Ongoing, Progressing Intervention: Optimize Skin Protection Flowsheets Taken 03/01/2025 08 by Gayle Light [...] She is alert. Assessment & Plan Sepsis (CMS/[facility]) 64 y.o. female with PMHx significant for [...] negative infectious workup. [facility]. Currently saturating well [...] PAL MURF, Bcx NGTD S/p extubation [facility]24[facility] SPO[facility] 92%+ PLAN: Supportive care for [...] 120 at OSH, [address] [facility] - Serum osm wnl, urine osm 408 [...] meds today F: soft and bite sized, [employer] eval Code Status: Assume Full Medically Ready for Discharge: * Progress Notes - Anthony Vaughn - 03/01/2025 9:27 AM EDT Case Management Discharge Note Eileen May 64 y.o. female CSN: [id number] Admission: 02/22/2025 6:13 PM Primary Problem: Sepsis (CMS/HCC) Primary Folder Operator: Primary Caregiver: Private caregiver Assistance Available at Discharge: Current Outpatient/Agency/Support Group: long-term facility Availability of Care Givers (#Hours): 24 hours Family/Folder Operator(s) Willingness Assessed to care for patient at home: Yes Family/Folder Operator(s) Readiness Assessed to care for patient at home: Yes Housing Circumstances-Z Codes: Housing Circumstances (select all that apply): None Applicable Discharge Facility/Level of Care Needs: Discharge Facility/Level of Care Needs: 3-Usp Facility Patient/Family Anticipated Services at Transition: Patient/Family Anticipated Services at Transition: long-term, rehabilitation services DME/Equipment Needed after Discharge: Equipment [...] Notice Recieved By: Pt at bedside Follow-up: [facility] [address] [place], [place] [address]adriano Barrios [address] Follow up Vignesh Pickens MD [address] [facility] [place] [address] Follow up Discharge Transportation: Transportation Anticipated: other (see comments) ([facility] ) Transportation [facility]: [facility] Has discharge transport been arranged?: Yes What day is the transport expected?: 03/01/25 What time is the transport expected?: 0900 Follow Up Transport: Transportation Needed to Follow up Appoinments: Other(Comment) ([place]) Additional Comments: Plan of care reviewed with Pt's care team; Pt is medically ready for discharge. Pt is a resident [facility] in [place] f[facility]. Weekend CM to fax Pt's discharge summary to [phone], and bedside RN to call report to [phone]. Facility uses [facility] in [place]. SW met with Pt at bedside, who [...] intubated for airway protection on arrival to [facility] ED for GSC of 7. Pt was found to be positive for Rhinovirus and had a negative infectious workup. [facility]. Currently saturating well [...] PAL MURF, Bcx NGTD S/p extubation [facility]/24, [facility] for SPO[facility] 92%+ PLAN: Supportive care for [...] resumed home meds continue Mirabegron HFrEF 2/2 [facility] - 11/2024 LVEF 35-40% - Current GDMT: [...] 120 at OSH, [address] [facility] - Serum osm wnl, urine osm 408 [...] meds today F: soft and bite sized, [employer] eval Code Status: Assume Full Medically Ready for Discharge: * Progress Notes - Anthony Vaughn - 02/28/2025 11:11 AM EDT Case Management Adult Progress Note Eileen May 64 y.o. female CSN: [id number] Admission: 02/22/2025 6:13 PM Primary Problem: Sepsis (CMS/HCC) Anticipated Discharge Date: TBD Has Discharge Plans Changed? No Additional Comments Plan of care reviewed with Pt's care team; Pt is not medically ready for discharge. Dental extraction planned for today. Anticipate discharge readiness tomorrow. Pt is a resident at [facility] in [place]. SW sent updated notes to Pt's facility via [facility] and verified Pt can return when ready. Anticipate Pt needing [facility] transport arranged upon discharge. Anthony Vaughn * Care Plan - Gayle Light RN - 02/28/2025 8:24 AM EDT Problem: Infection Goal: Absence of Infection Signs and Symptoms 02/28/2025823 by Gayle Light RN Outcome: Ongoing, Progressing 02/28/2025815 by Gayle Light RN Outcome: Ongoing, Progressing Intervention: Prevent or Manage Infection Flowsheets Taken 02/28/2025815 by Gayle Light RN Infection Management: aseptic technique maintained Fever Reduction/Comfort Measures: lightweight bedding lightweight clothing Taken 02/28/2025 0600 by Pat Young Isolation Precautions: precautions maintained droplet protective Problem: Adult Inpatient Plan of Care Goal: Plan of Care Review 02/28/2025823 by Gayle Light RN Outcome: Ongoing, Progressing Flowsheets Taken 02/28/2025815 by Gayle Light RN Progress: improving Outcome Evaluation: continue current POC Taken 02/22/20252233 by Daniela Mcbride RN Plan of Care Reviewed With: patient 02/28/2025815 by Gayle Light RN Flowsheets Taken [...] 02/28/2025823 by Gayle Light RN Flowsheets Taken 02/28/2025729 [...] by Gayle Light RN Flowsheets (Taken 02/28/2025 08) VTE Prevention/Management: right SCDs (sequential compression devices) on 02/28/2025815 by Gayle Light RN Flowsheets (Taken 02/28/2025 08) VTE Prevention/Management: right SCDs (sequential compression devices) [...] comments) Current Outpatient/Agency/Support Group: inpatient rehabilitation facility OT,PT,[employer]KER Anticipated Changes Related to Illness: inability to care for self Transportation Anticipated: medical transport Outpatient/Agency/Support Group Needs: inpatient rehabilitation facility Transportation Concerns: none Current Discharge Risk: physical impairment Concerns to be Addressed: basic needs discharge planning Readmission Within the Last 30 Days: previous discharge plan unsuccessful Patient/Family Anticipated Services at Transition: block and case maker durable medical equipment rehabilitation services Patient/Family Anticipates [...] comments) Current Outpatient/Agency/Support Group: inpatient rehabilitation facility OT,PT,SWE[employer] P[employer]LED [employer] MAKER Anticipated Changes Related to Illness: inability to care for self Transportation Anticipated: medical transport Outpatient/Agency/Support Group Needs: inpatient rehabilitation facility Transportation Concerns: none Current Discharge Risk: physical impairment Concerns to be Addressed: basic needs discharge planning Readmission Within the Last 30 Days: previous discharge plan unsuccessful Patient/Family Anticipated Services at Transition: block and case maker durable medical equipment rehabilitation services Patient/Family Anticipates [...] maintained Taken 02/28/2025 0600 by Pat Young Isolation Precautions: precautions maintained droplet protective Taken 02/24/20252002 by Daniela Mcbride RN Stabilization Measures: airway opened Taken 02/22/20252233 by Daniela Mcbride RN Infection Prevention: environmental surveillance performed 02/28/2025815 by Gayle Light RN Flowsheets Taken 02/28/2025815 by Gayle Light RN Infection Management: aseptic technique maintained Taken 02/28/2025 0600 by Pat Young Isolation Precautions: precautions maintained droplet protective Taken [...] fluid excess minimized Intervention: Promote Recovery 02/28/2025 0824 by Gayle Light RN Flowsheets Taken 02/28/2025815 by Gayle Light RN Airway/Ventilation Management: airway patency maintained calming measures promoted oxygen therapy provided position adjusted Sleep/Rest Enhancement: consistent schedule promoted natural light exposure provided regular sleep/rest pattern promoted relaxation techniques promoted Taken 02/28/2025 0600 by Pat Young Activity Management: activity adjusted per tolerance 02/28/2025815 by Gayle Light RN Flowsheets (Taken 02/28/2025 08) Airway/Ventilation Management: airway patency maintained calming measures promoted oxygen therapy provided position adjusted Sleep/Rest Enhancement: consistent schedule promoted natural light exposure provided regular sleep/rest pattern promoted relaxation techniques promoted Problem: Oral Intake Inadequate Goal: Improved Oral Intake Outcome: Ongoing, Progressing Intervention: Promote and Optimize Oral Intake 02/28/2025 08 by Gayle Light RN Flowsheets (Taken 02/25/20251911 by Bassem Jay, RN) Oral Nutrition Promotion: physical activity promoted Nutrition Interventions: diet adjusted food preferences provided 02/28/2025 08 by Gayle Light RN Flowsheets (Taken 02/25/20251911 by Bassem Jay, RN) Oral Nutrition Promotion: physical activity promoted Nutrition Interventions: diet adjusted food preferences provided Problem: Mobility Impairment Goal: Optimal Mobility Outcome: Ongoing, Progressing Intervention: Optimize Mobility 02/28/2025 0824 by Gayle Light RN Flowsheets Taken 02/28/2025 [...] Ongoing, Progressing Intervention: Promote Activity and Functional Pike Flowsheets Taken 02/28/2025 08 by Gayle Light RN Activity Assistance Provided: assistance, 2 people lift team assistance Adaptive Equipment Use: use encouraged Taken 02/26/2025 1750 by Bassem Jay RN Self-Care Promotion: independence encouraged Problem: Skin Injury Risk Increased Goal: Skin Health and Integrity Outcome: Ongoing, Progressing Intervention: Optimize Skin Protection Flowsheets Taken 02/28/2025 08 by Gayle Light [...] Contributors Flowsheets Taken 02/26/2025 1750 by Bassem Jay, RN Self-Care Promotion: independence encouraged Taken 02/23/2025 [...] Infection Flowsheets Taken 02/25/2025 1928 by Daniela Mcbride RN Isolation Precautions: precautions maintained Taken 02/23/2025 1254 by Temi Mao RN Fever Reduction/Comfort Measures: lightweight bedding Taken 02/22/2025 2234 by Daniela Mcbride RN Infection Management: aseptic [...] negative infectious workup. She was extubated to [facility] w/o complications on 02/24/25. Mentating well back to baseline, schedule for dental procedure tomorrow * Progress Notes - Chuy Graham, DO - 02/27/2025 2:56 PM EDT Images [...] negative infectious workup. She was extubated to [facility] w/o complications on 02/24/25. Events of past [...] Mental status is at baseline. Results: Lab [place] today CBC WBC ?? Hb ?? Plt [...] in the posterior aspect of tooth #31. [place] wear in tooth number 8, 9 and [...] negative infectious workup. [facility]. #Acute hypoxic respiratory [...] home meds - continue Mirabegron #HFrEF 2/2 [facility] - 11/2024 LVEF 35-40% - Current GDMT: [...] 120 at OSH, [address] [facility] - Serum osm wnl, urine osm 408 [...] meds today F: soft and bite sized, [employer] eval A: oxy, acetaminophen, fentanyl patch (home [...] Chuy Graham DO Internal Medicine PGY-2 Pager [phone]; [facility] preferred Procedures [1] [2] PRN medications: acetaminophen, [...] as documented. * Transfer of Care - Chuy Graham DO - 02/27/2025 2:50 PM EDT Images [...] negative infectious workup. [facility]. During her hospital [...] is being transferred from ICU team to [facility] Team 14 Major Active Problems: Currently [...] MURF, Bcx NGTD - S/p extubation 02/24, [facility] for SPO[facility] 92%+ PLAN: - Supportive care [...] meds today F: soft and bite sized, [employer] jo A: oxy, acetaminophen, fentanyl patch (home dose), [...] 120 at OSH, [address] [facility] - Serum osm wnl, urine osm 408 with Na 31 PLAN: -Na 132 02/24 #Non-oliguric GEOVANNI with Disorder of Fluid and [...] Lunch Supplement frequency: Dinner Lunch supplement: Tony Paterson Quantity for Lunch of Tony Paterson Packet One Dinner supplement: Tony Fruit Punch [...] Chuy Graham DO Internal Medicine PGY-2 Pager [phone]; Epic Chat preferred * Care Plan - Daniela Carroll APRN, DNP - 02/27/2025 2:37 PM EDT Problem: Adult Inpatient Plan of Care Goal: Plan of Care Review Outcome: Ongoing, Progressing Problem: Sepsis/Septic Shock Goal: Blood Glucose Level Within Target Range Outcome: Ongoing, Progressing Intervention: Optimize Glycemic Control Flowsheets (Taken 02/22/2025 2234 by Daniela Mcbride, JIMI) Hyperglycemia Management: blood glucose monitored Hypoglycemia Management: [...] Progressing Flowsheets Taken 02/24/20252002 Progress: improving Taken 02/22/2025 2234 Plan of Care Reviewed With: patient Goal: Patient-Specific Goal (Individualized) Outcome: Ongoing, Progressing Flowsheets (Taken 02/26/2025 0800 by Bassem Jay RN) Patient/Family-Specific Goals (Include Timeframe): patient pain will remain <4 during shift Individualized Care Needs: q2h turns Anxieties, Fears or Concerns: Pain Goal: Absence of Hospital-Acquired Illness or Injury Outcome: Ongoing, Progressing Intervention: Prevent Skin Injury Flowsheets Taken 02/26/2025 1600 by Bassem Jay RN Body Position: right turned Taken 02/26/2025 1100 by Bassem Jay RN Skin Protection: incontinence pads utilized skin sealant/moisture barrier applied Intervention: Prevent and Manage VTE (Venous Thromboembolism) Risk Flowsheets (Taken 02/26/2025 1600 by Bassem Jay RN) VTE Prevention/Management: right SCDs (sequential compression [...] identified Taken 02/23/2025 1254 by Temi Mao, JIMI Readmission Within the Last 30 Days: no previous admission in last 30 days Problem: Sepsis/Septic Shock Goal: Absence of Bleeding Outcome: Ongoing, Progressing Intervention: Monitor and Manage Bleeding Flowsheets (Taken 02/24/2025 0914 by Delroy Bernal, JIMI) Bleeding Precautions: monitored for signs of bleeding [...] Flowsheets (Taken 02/25/2025 191 by Bassem Jay, JIMI) Oral Nutrition Promotion: physical activity promoted Nutrition Interventions: diet adjusted food preferences provided Problem: Mobility Impairment Goal: Optimal Mobility Outcome: Ongoing, Progressing Intervention: Optimize Mobility Flowsheets (Taken 02/24/2025 0800 by Delroy Bernal RN) Activity Management: activity adjusted per tolerance Problem: Self-Care Deficit Goal: Improved Ability to Complete Activities of Daily Living Outcome: Ongoing, Progressing Intervention: Promote Activity and Functional Pike Flowsheets (Taken 02/26/2025 1750 by Bassem Jay, RN) Activity Assistance Provided: assistance refused education provided Self-Care Promotion: independence encouraged * Care Plan - Bassem Jay RN - 02/26/2025 5:52 PM EDT Problem: Infection Goal: Absence of Infection Signs and Symptoms Outcome: Ongoing, Progressing Intervention: Prevent or Manage Infection Flowsheets Taken 02/25/2025 1928 by Daniela Mcbride RN Isolation Precautions: precautions [...] Flowsheets (Taken 02/24/2025 0800 by Delroy Bernal, JIMI) Activity Management: activity adjusted per tolerance Problem: Self-Care Deficit Goal: Improved Ability to Complete Activities of Daily Living Outcome: Ongoing, Progressing Intervention: Promote Activity and Functional Pike Flowsheets (Taken 02/26/2025 1750) Activity Assistance Provided: assistance refused education provided Self-Care Promotion: independence encouraged * Progress Notes - Eileen Ortega Jh - 02/26/2025 11:16 AM EDT Physical Therapy Evaluation Patient Name: Eileen May Today's Date: 02/26/2025 PT Discharge Recommendations: Subacute rehab Equipment Recommended: Defer to facility History Eileen May is 64 y.o. female admitted 02/22/2025 for work-up of Sepsis ([facility]). Problem List Active Hospital Problems Diagnosis Date Noted Sepsis (CMS/HCC) 02/22/2025 Procedures Past 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 Patient has a past medical history of Anxiety, Breast cancer, Cerebral infarction, unspecified ([facility]), COPD (chronic obstructive pulmonary disease) ([facility]), Depression, Fibromyalgia, History of falling, Hypertension, [...] relaxing. Participants in Care Family/Caregiver Present: No Credit Operations Specialist: Not Applicable Presentation Oxygen Therapy: None (Room [...] session; RN aware Home Living/Set-up Home Type: custodial facility Home Adaptive Equipment: Wheelchair-manual, Hospital bed [...] From: Caregiver Level of Mobility: Wheelchair/Scooter Mobility Pike: Independent wheelchair propulsion History of Falls: No ADL Performance: Needs assistance Bathing: Needs assist Upper Body Dressing: Independent Lower Body Dressing: Needs assist Grooming: Independent Toileting: Needs assist Eating: Independent Home Management Skills: Unable to perform Patient/Family Goals Return home at [facility]. Objective Pain Pt reports having some tooth [...] change. Bed Mobility Exam: Rolling/Turning Level of Pike: Moderate assist (50% patient effort) (bilaterally) Physical/Nonphysical Assist: Verbal Cues, Minimal cues, 1 person + 1 person to manage equipment Assistive Device: Other (drawsheet) Bed Mobility Exam: Scooting/Bridging Level of Pike: Maximum assist (25% patient's effort) (to head [...] space Standardized Assessments Standardized Assessments Standardized Assessments: [facility] 6-Clicks Mobility Assessment [facility] 6-Clicks Mobility Assessment Difficulty patient has turning [...] AM. * Progress Notes - Makenzie Groves E - 02/26/2025 10:30 AM EDT Occupational Therapy Evaluation Patient Name: Eileen May Today's Date: 02/26/2025 OT Discharge Recommendations: Subacute rehab Equipment Recommended: Defer to facility History Eileen May is 64 y.o. female admitted 02/22/2025 for work-up of Sepsis ([facility]). Hospital Course 1. Erie coma scale total score 9-12, at arrival to emergency department 2. Acute cystitis without hematuria 3. Acute respiratory failure with hypercapnia 4. COPD exacerbation (CMS/HCC) Procedures Past 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 Patient has a past medical history of Anxiety, Breast cancer, Cerebral infarction, unspecified (CMS/HCC), COPD (chronic obstructive pulmonary disease) (CMS/[facility]), Depression, Fibromyalgia, History of falling, Hypertension, [...] date Participants in Care Family/Caregiver Present: No Credit Operations Specialist: Not Applicable Presentation Oxygen Therapy: None (Room [...] treatment as tolerated Home Living/Set-Up Home Type: custodial facility Home Adaptive Equipment: Wheelchair-manual, Hospital bed [...] From: Caregiver Level of Mobility: Wheelchair/Scooter Mobility Pike: Independent wheelchair propulsion History of Falls: No [...] of treatment space BED MOBILITY Level of Pike Physical/Non- physical Assist Adaptive Equipment Utilized Rolling/ [...] to rot this date. TRANSFERS Level of Pike Physical/Non- physical Assist Adaptive Equipment Utilized Sit to Stand Stand to sit Bed to Chair Toilet Transfer Shower Transfer Interventions Patient politely deferring transfer tasks this date; educated on use of amputee slingfor increased safety as patient expresses nervousness with transfer tasks. FUNCTIONAL MOBILITY Level of Pike Distance Adaptive Equipment Utilized Ambulation Comments Patient does not ambulate at baseline* ADL / Self-Care Tasks Level of Pike Adaptive Equipment Utilized Interventions Feeding Setup, Standby [...] increased patient rest/education throughout session. Standardized Assessments [facility] 6-Click Daily Activities Help from Other: Don/Doff Regular Lower Body Clothings: Total Help From Other: Bathing: A lot Help From Other: Toileting: Total Help From Other: Don/Doff Upper Body Clothings: Little Help From Other: Grooming: Little Help From Other: Eating Meals: None [facility] 6 Click - Daily Activities Score: 14 [...] 11:38 AM. * Progress Notes - Chuy Graham DO - 02/26/2025 8:04 AM EDT Images [...] negative infectious workup. [facility]. Events of past [...] negative infectious workup. [facility]/25. #Acute hypoxic respiratory [...] home meds - continue Mirabegron #HFrEF 2/2 [facility] - 11/2024 LVEF 35-40% - Current GDMT: [...] 120 at OSH, [address] [facility] - Serum osm wnl, urine osm 408 [...] meds today F: soft and bite sized, [employer] eval A: oxy, acetaminophen, fentanyl patch (home [...] Chuy Graham DO Internal Medicine PGY-2 Pager [phone]; [facility] preferred Procedures [1] [2] PRN medications: acetaminophen, [...] -Schedule patient to follow-up on 5th floor [facility] for extraction of #15 underlocal anesthesia. -we will arrange transport to clinic from hospital bed. - Diet: Regular; NPO at midnight prior to surgery -For extraction of one tooth it is not warranted to stop current anticoagulation therapy. -Follow current recommendations of Primary team. [facility] Department of Oral & Maxillofacial Surgery [address] [place] [address] Fifth Floor, [address] [place] [address] Dispo: Continue Current Level of Care Bert Lim, RAYMON [1] Past 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: Diagnosis Date Anxiety [...] Touchworks KIDNEY SURGERY N/A Kidney Surgery from [facility] KNEE SURGERY N/A Knee Surgery from [facility] MASTECTOMY N/A Breast Surgery Mastectomy from [facility] SHOULDER SURGERY Right Shoulder Surgery Right from [facility] [3] No current facility-administered medications on file [...] is unaware of what reaction. Pedi-Pre Tape [place] [Wound Dressing Adhesive] Rash Wellbutrin [Bupropion] Rash Cosigned by Jin Rodriguez DDS at 02/26/2025 10:04 AM EDT Associated attestation - Jin Rodriguez DDS - 02/26/2025 10:04 AM EDT I reviewed with Dr. Bowling and agree with the plan * Progress Notes - Sarah Rand - 02/25/2025 3:11 PM EDT Case Management Adult Initial Progress Note Eileen May 64 y.o. female CSN: [id number] Admission: 02/22/2025 6:13 PM Primary Problem: Sepsis (CMS/HCC) Functional Architect reviewed chart and spoke with patient to complete this Initial Case Management Assessment. PCP: Vignesh Pickens MD Emergency Contact: Extended Emergency Contact Information Primary Emergency Contact: Val Howell Mobile Relation: Sister Credit Operations Specialist needed? No Insurance: Primary Visit Coverage Payer Plan Sponsor Code Group Number Group Name MEDICARE MEDICARE A & B Primary Visit Coverage Subscriber Subscriber ID Subscriber Name Subscriber SSN Subscriber Address [id number] EILEEN MAY Jh [id number] [place] [address] Secondary Visit Coverage Payer Plan Sponsor Code Group Number Group Name MEDICAID-[facility] MEDICAID TRADITIONAL Secondary Visit Coverage Subscriber Subscriber ID Subscriber Name Subscriber SSN Subscriber Address [id number] EILEEN MAY RAYMON [id number] [place] [address] Patient information: Primary Caregiver: Private caregiver Support System: Immediate family Daily Living Activities: Functional Status: Moderate assistance Living Arrangements: Mcfp Type of Residence: custodial facility [place] [id number] Current DME: Equipment Currently Used at Home: [...] living facility Discharge Transport: Follow Up Transport: [facility] provides follow up transportation. Patient will need assistance with transportation when medically stable. Home Health / Home Infusion / Outpatient Dialysis Services: None reported. Living Will/Advance Directive/Power of Physician Office Assistant /Guardian: None reported. Sister/Val is NOK. Additional [...] RN 02/25/2025 2:13 PM * Consults - Di Ramires RD - 02/25/2025 8:30 AM EDT Adult Nutrition Evaluation Note Eileen May 64 y.o. female CSN: [id number] Room/Bed 121/121A Nutrition evaluation type: follow-up Reason [...] Supplemental oxygen O2 Delivery Method: Nasal cannula [place] Coma Scale Score: 15 Ray Scale Score: [...] 36.76 Weight Evaluation: Obese-Class 2 (BMI 35-39.9) Grant Body Weight (kg): 48.55 (adjusted for left AKA) Percent Grant Body Weight: 198 Adjusted Body Weight (kg): [...] oz) Estimated Needs: Kcal/ K-30 Kcal Provided: 1031-5826 Kcal Needs Based On: Adjusted weight (60.5 kg) Gm Protein/ Kg : 1.2-1.5 Protein Provided: 73-91 Protein Needs Based On: Adjusted weight (60.5 kg) Fluid Provided: 1 ml/kcal or per MD team Metabolic Cart Study Results: Current Nutrition Intake: Diet Supplements: None Diet Order: Adult Diet Diet Texture: Full Liquid Adult Carbohydrate Restriction: Consistent CHO 2 (5447-4302 [place], 80 g/meal) Percent Meals Eaten (%): 50% x 1 meal Diet Experience and Nutrition History: Diet Education Provided: Will monitor Pertinent home medications: ascorbic acid, calcitriol, cholecalciferol, cyanocobalamin, ferrous sulfate, insulin, loperamide, magnesium oxide, MVI, ondansetron, Percocet, pantoprazole Episcopalian needs: Nutrition Focused Physical Exam: Unable to Complete Exam: Patient unable to participate Physical exam performed on (date): Assessment of Malnutrition: Nutrition Problem: Inadequate oral intake related to current clinical condition as evidenced by full liquid diet. Status of Nutrition Diagnosis: Ongoing Nutrition Interventions and Recommendations: - Advance diet as appropriate per [employer] - CHO 2 diet - Add Boost [...] labs, and elytes Acuity Level: 3 Di Perry Ramires, RD [1] Past 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: Diagnosis Date Anxiety Breast cancer Cerebral infarction, unspecified (CMS/HCC) CVA (cerebral infarction) COPD (chronic obstructive pulmonary disease) ([facility]) Depression Fibromyalgia History of falling [...] Touchworks KIDNEY SURGERY N/A Kidney Surgery from [facility] KNEE SURGERY N/A Knee Surgery from to [facility] MASTECTOMY N/A Breast Surgery Mastectomy from [facility] SHOULDER SURGERY Right Shoulder Surgery Right from to [facility] [3] atorvastatin, 40 mg, Oral, Nightly baclofen, [...] chloride [5] * Progress Notes - Chuy Graham DO - 02/25/2025 7:06 AM EDT Images from [...] negative infectious workup. [facility]. Events of past 24 hours: - no acute events overnight - [facility], doing well, currently above goal on 2L [...] negative infectious workup. [facility] on 02/24/25. #Acute hypoxic respiratory [...] Bcx NGTD PLAN: - S/p extubation 02/24, [facility] for SPO[facility] 92%+ - Supportive care for [...] meds today - on Mirabegron #HFrEF 2/2 [facility] - 11/2024 LVEF 35-40% - Current GDMT: [...] 120 at OSH, [address] [facility] - Serum osm wnl, urine osm 408 [...] meds today F: full liquid carb 2, [employer] eval A: oxy, acetaminophen, prn dilaudid IV, [...] Chuy Graham DO Internal Medicine PGY-2 Pager [phone]; Epic Chat preferred Procedures [1] [2] PRN [...] Prevent or Manage Infection Flowsheets Taken 02/24/2025 1935 by Daniela Mcbride RN Isolation Precautions: precautions maintained Taken 02/23/2025 1254 by Temi Mao RN Fever Reduction/Comfort Measures: lightweight bedding Taken 02/22/2025 2234 by Daniela Mcbride RN Infection Management: aseptic [...] Bleeding Flowsheets (Taken 02/24/2025 0914 by Delroy Bernal, JIMI) Bleeding Precautions: monitored for signs of bleeding [...] Note Eileen May 64 y.o. female CSN: [id number] Room/Bed 121/121A Nutrition evaluation type: assessment Reason [...] 36.39 Weight Evaluation: Obese-Class 2 (BMI 35-39.9) [place] Body Weight (kg): 48.55 (adjusted for left AKA) Percent Grant Body Weight: 198 Adjusted Body Weight (kg): [...] oz) Estimated Needs: Kcal/ K-30 Kcal Provided: 6743-2012 Kcal Needs Based On: Adjusted weight (60.5 [...] loperamide, magnesium oxide, MVI, ondansetron, Percocet, pantoprazole Episcopalian needs: Nutrition Focused Physical Exam: Unable to Complete Exam: Weekend coverage Physical exam performed on (date): pending Assessment of Malnutrition: Nutrition Problem: Inadequate oral intake related to current clinical condition as evidenced by GCS 11, NPO diet order. Status of Nutrition Diagnosis: New Nutrition Interventions and Recommendations: PO diet advancement per [employer]/MD team. TF recs if warranted: Diabetisource AC [...] (cerebral infarction) COPD (chronic obstructive pulmonary disease) (CMS/[facility]) Depression Fibromyalgia History of falling [...] BREAST SURGERY N/A Breast Surgery Reconstruction from [facility] BREAST SURGERY N/A Breast Surgery from [facility] CHOLECYSTECTOMY N/A Cholecystotomy from [facility] KIDNEY SURGERY N/A Kidney Surgery from [facility] KNEE SURGERY N/A Knee Surgery from [facility] MASTECTOMY N/A Breast Surgery Mastectomy from [facility] SHOULDER SURGERY Right Shoulder Surgery Right from to [facility] [3] atorvastatin, 40 mg, Nasogastric, Nightly clopidogrel, [...] Mao RN Trust Relationship/Rapport: care explained Taken 02/22/20256 by Daniela Mcbride RN Diversional Activities: other (see comments) Taken 02/22/20252233 by Daniela Mcbride RN Communication Enhancement Strategies: call light answered [...] (Taken 02/23/2025 1254 by Temi Mao, JIMI) Environmental Support: calm environment promoted caregiver consistency [...] limited positioning supports utilized pressure points protected [id number]-[id number] areas padded tubing/devices free from skin contact Goal: Absence of Ventilator-Induced Lung Injury Outcome: Ongoing, Progressing Intervention: Facilitate Lung-Protection Measures Flowsheets (Taken 02/23/2025 1254 by Temi Mao, JIMI) Lung Protection Measures: fluid excess minimized Intervention: [...] Control Flowsheets (Taken 02/22/20252233 by Daniela Mcbride, JIMI) Hyperglycemia Management: blood glucose monitored Goal: Absence of Infection Signs and Symptoms Outcome: Ongoing, Progressing Intervention: Initiate Sepsis Management Flowsheets (Taken 02/22/20252233 by Daniela Mcbride, JIMI) Infection Prevention: environmental surveillance performed Problem: Restraint, Nonviolent Goal: Absence of Harm or Injury Outcome: Ongoing, Progressing Intervention: Protect Dignity, Rights and Personal Wellbeing Flowsheets (Taken 02/23/2025 1254 by Temi Mao, JIMI) Trust Relationship/Rapport: care explained * Progress Notes - Luda Ralph MD - 02/24/2025 7:08 AM EDTAssociated Order(s): [...] Bcx NGTD PLAN: - S/p ext[facility]24, [facility] 92%+ - Supportive care for [...] continued concern or difficult irrigating, contact Urology mill tender second operator. #hypovolemic Hyponatremia, resolved - baseline Na 130-135 - Na 120 at OSH, [address] [facility] - Serum osm wnl, urine osm 408 with Na 31 PLAN: -Na 132 7/ #Acute Encephalopathy, resolved - metabolic vs infectious, cannot completely exclude stroke though very unlikely, most likely metabolic - was told to stop 90mg of Cymbalta on 02/20/25, no evidence of taper in for this PLAN: - monitor serum Na per below - wean sedation as tolerated to continue to assess mentation #HFrEF 2/2 [facility] - 11/2024 LVEF 35-40% - Current GDMT: [...] and plan discussed with Dr. Ralph. Boyd Landeros MD Internal Medicine PGY-2 Pager [phone] Critical Care Performed by: Luda Ralph MD [...] 02/22/2025 2234) Hyperglycemia Management: blood glucose monitored Goal: Absence of Infection Signs and Symptoms Outcome: Ongoing, Progressing Problem: Restraint, Nonviolent Goal: Absence of Harm or Injury Outcome: Ongoing, Progressing Intervention: Implement Least Restrictive Safety Strategies Flowsheets (Taken 02/22/20256) Diversional Activities: other (see comments) Intervention: Protect Dignity, Rights and Personal Wellbeing Flowsheets (Taken 02/23/2025 1254 by Temi Mao, JIMI) Trust Relationship/Rapport: care explained Intervention: Protect Skin and Joint Integrity Flowsheets (Taken 02/23/20251999) Body Position: left turned * Consults - Jake Sheets MD - 02/23/2025 11:51 AM EDTAssociated Order(s): Inpatient consult to Urology Inpatient consult to Urology Consult performed by: Jake Sheets MD Consult ordered by: Luda Ralph MD [facility] Urology Consult Note 02/23/25 Service Requesting Consultation: MICU CC: Hematuria HPI: Eileen May is a 64 y.o. female with a past medical history of CAD s/p PCI, ICM w/ LVEF 35-40%, CVA w/ residual L-sided deficits s/p ICA stents on xeralto, Left AKA, insulin dependent T2DM, HTN, HLD, prior breast cancer s/p mastectomy, COPD, bilateral hydronephrosis and neurogenic bladder who presented to [facility] ED as a transfer from OSH with [...] Results from last 7 days Lab Units 02/22/256 WBC 10*3/uL 7.98 HEMOGLOBIN g/dL 9.2* HEMATOCRIT [...] findings. Hospital Problem List: Principal Problem: Sepsis ([facility]) Assessment: Eileen May is a 64 [...] need to be upsized to a 20 Austrian catheter to allow for easier drainage. We [...] continued concern or difficult irrigating, contact Urology mill tender second operator. Jake Sheets MD Urology PGY-2 [1] Past [...] BREAST SURGERY N/A Breast Surgery Reconstruction from [facility] BREAST SURGERY N/A Breast Surgery from [facility] CHOLECYSTECTOMY N/A Cholecystotomy from [facility] KIDNEY SURGERY N/A Kidney Surgery from [facility] KNEE SURGERY N/A Knee Surgery from [facility] MASTECTOMY N/A Breast Surgery Mastectomy from [facility] SHOULDER SURGERY Right Shoulder Surgery Right from to [facility] [3] Family History Problem Relation Name Age [...] without septic shock, due to unspecified organism (CMS/[facility]) Images from the original note were [...] AMS with GCS 6-[address] [facility] therefore intubated for airway protection - pt [...] continued concern or difficult irrigating, contact Urology mill tender second operator. #Hyponatremia - baseline Na 130-135 - Na 120 at OSH, [address] [facility] PLAN: - will continue to monitor BID [...] discussed with Dr. Ralph. - Chuy Graham, Internal Medicine PGY-2 Pager [phone]; [facility] preferred Critical Care Performed by: Luda Ralph [...] Fever Reduction/Comfort Measures: fluid intake increased Taken 02/22/20252199 Isolation Precautions: precautions initiated Problem: Adult Inpatient Plan of Care Goal: Plan of Care Review 02/22/20252235 by Daniela Mcbride RN Outcome: Ongoing, Progressing 02/22/20252233 by Daniela Mcbride RN Outcome: Ongoing, Progressing Flowsheets (Taken 02/22/20252233) Progress: improving Plan of Care Reviewed With: [...] provided Goal: Readiness for Transition of Care 02/22/2025 223 by Daniela Mcbride RN Outcome: [...] communication board used Goal: Optimal Device Function 02/22/2025 223 by Daniela Mcbride RN Outcome: [...] Least Restrictive Safety Strategies Flowsheets (Taken 02/22/20252235) Cash Checker Protection: torso covered tubing secured Diversional Activities: other (see comments) Intervention: Protect Dignity, Rights and Personal Wellbeing Flowsheets (Taken 02/22/20252233) Trust Relationship/Rapport: care explained choices provided Intervention: Protect Skin and Joint Integrity Flowsheets Taken 02/22/20252235 Skin Protection: hydrocolloids used drying agents applied Taken 02/22/20252199 Range of Motion: active ROM (range of motion) encouraged Body Position: right turned * Progress Notes - Ab Fabian PharmD - 02/22/2025 10:34 PM EDT Pharmacokinetic [...] and AMS. Patient presented to OSH from [facility] due to concern for hyponatremia, encephalopathy and [...] exacerbation, given duonebs and azithromycin. Transferred to [facility] for higher level of care. On arrival to [facility] ED, patient GCS 6-7, VBG7.28/60/41, patient intubated for airway protection. MICU consulted for admission. PAST MEDICAL HISTORY: She has a past medical history of Anxiety, Breast cancer, Cerebral infarction, unspecified ([facility]/HCC), COPD (chronic obstructive pulmonary disease) ([facility]), Depression, Fibromyalgia, History of falling, Hypertension, [...] by mouth every evening. Take with food. Provider, MD Kati traZODone (Desyrel) 150 MG tablet Take 2 tablets by mouth nightly. 01/16/21 Provider, MD Kati traZODone (Desyrel) 300 MG tablet 12/13/23 Provider, MD Kati trospium (Sanctura) 20 MG tablet Take 1 [...] AMS with GCS 6-[address] [facility] therefore intubated for airway protection PLAN - [...] 120 at OSH, [address] [facility] - will continue to monitor with q4h Na HFrEF 2/2 ICM - 11/2024 LVEF 35-40% [...] following disturbances: Acidosis Malnutrition: Unspecified protein-calorie malnutrition Rachle Shipman MD PGY-3, Internal Medicine Pager: [phone] Procedures [1] Family History Problem Relation Name [...] bag 0.25 mg Intravenous q10 min PRN [place] Leon B, DO 0.25 mg at 02/22/251953 Or HYDROmorphone (Dilaudid) bolus from bag 0.5 mg Intravenous q10 min PRN [place]field, Leon B, DO 0.5 mg at 02/22/251926 hydromorphone 20 mg in NS 100 mL infusion (200 mcg/mL) 0.25-2 mg/hr Intravenous Titrated [place] Leon B, DO 1.25 mL/hr at 02/22/251926 0.25 mg/hr at 02/22/251926 ipratropium-albuterol (Duo-Neb) 0.5-2.5 mg/3 mL nebulizer solution 3 mL 3 mL Nebulization Once [place], Leon B, DO mupirocin (Bactroban) 2 % [...] evaluated the patient with the resident/fellow via [facility] ICU audio- visual support as available. I [...] CTHAP: no acute findings [facility] VBG completed prior [...] the procedure. * ED Provider Notes - GreenfieldRamon nielsenwell Devante, - 02/22/2025 6:13 PM EDT - HPI [...] Temp Source Heart Rate Source Patient Position 02/22/25 18202/22/25 182 -- -- 93 % Oral BP Location FiO2 (%) -- 02/22/25 1855 60 % Physical Exam Constitutional: General: She [...] mg/mL 20 mcg/kg/min Intravenous New Bag 02/22/2025 190 EDT phenylephrine in NS (Vitor-Synephrine) 100 mcg/mL prefilled syringe - Pyxis Override Pull -- Not Given All Other Orders Ordered Status Ordering Provider 02/22/25 1853 Triglycerides Every Mon/Hermelinda Comments: Please draw lab from area not near where Propofol is infusing. If Propofol is discontinued. Triglyceride monitoring is not indicated. Start Status Ordering Provider 02/25/25 06 Scheduled MORTONLUDA Stevens 02/28/25 0600 Scheduled MORTON, LUDA Cisneros 03/04/25 0600 Scheduled MORTON, LUDA Cisneros 03/07/25 0600 Scheduled MORTON, LUDA Cisneros 03/11/25 0600 Scheduled MORTON, LUDA Cisneros 03/14/25 0600 Scheduled MORTON, LUDA Cisneros 03/18/25 0600 Scheduled MORTON, LUDA Cisneros 03/21/25 0600 Scheduled MORTON, LUDA Cisneros Ordered MORTON, LUDA Cisneros 02/22/25 1858 SBT - Assess for SBT readiness and complete SBT trial when criteria met Daily Order ID Start Status Ordering Provider [id number] 02/23/25 0800 Ordered MORTONLUDA 02/24/25 0600 Scheduled MORTON, LUDA T 02/25/25 06 Scheduled MORTONLUDA Stevens 02/26/25 06 Scheduled LUDA MORTON 02/27/25 06 Scheduled LUDA MORTON Ordered LUDA MORTON 02/22/25 185 Suction secretions [...] Continuous Order ID Start Status Ordering Provider [id number] 02/22/25 185 Ordered LUDA MORTON [id number] 02/22/251999 Completed LUDA MORTON [id number] 02/23/25 08 Ordered LUDA MORTON 02/23/251999 Scheduled LUDA MORTON 02/24/25 08 Scheduled MORTONLUDA Stevens 02/24/251999 Scheduled LUDA MORTON 02/25/25 08 Scheduled LUDA MORTON 02/25/251999 Scheduled LUDA MORTON 02/26/25 08 Scheduled LUDA MORTON 02/26/251999 Scheduled LUDA MORTON Ordered LUDA MORTON 02/22/25 185 End Tidal co2 Monitoring Continuous Order ID Start Status Ordering Provider [id number] 02/22/25 1859 Ordered LUDA MORTON [id number] 02/22/251999 Completed LUDA MORTON [id number] 02/23/25 0800 Ordered LUDA MORTON 02/23/251999 Scheduled LUDA MORTON 02/24/25 0800 Scheduled MORTONLUDA Stevens 02/24/251999 Scheduled LDUA MORTON 02/25/25 08 Scheduled MORTONLUDA Stevens 02/25/251999 Scheduled LUDA MORTON 02/26/25 08 Scheduled MORTONLUDA Stevens 02/26/251999 Scheduled LUDA MORTON Ordered MORTONLUDA Stevens Blayne 02/22/251857 SAT-Spontaneous Awakening Trial Sedation vacations and assess readiness to extubatedaily and prn Until discontinued Ordered SELENE LUDA Blayne 02/22/251857 Adjust HOB (specify) 30 degrees (30-45 degrees) Once Ordered LUDA MORTON 02/22/251857 Swab oral cavity every 2 hours and PRN to cleanse and maintain oral mucosal integrityUntil discontinued Ordered LUDA MORTON 02/22/251857 [place] teeth every 12 hours Until discontinued Ordered SELENE LUDA Blayne 02/22/251857 Continuous Pulse Oximetry Until discontinued Ordered SELENE LUDA Blayne 02/22/251857 PT eval and treat Until therapy completed Ordered LUDA MORTON 02/22/251857 OT eval and treat Until therapy [...] and with any changes in infusionrate. Ordered LUDA MORTON 02/22/251852 Target arousal level: Until discontinued Comments: Target consistent patient goal RASS as ordered. Document RASS every 2 hours and before and after PRN bolus dosing and with any changes in infusion rate. If deep sedation requested by provider, notify provider for updated RASS goal order. Ordered LUDA MORTON 02/22/25 184 XR Chest 1 View One time imaging In process LUDA MORTON 02/22/25 184 XR Abdomen 1 View Once In process LUDA MORTON 02/22/25 183 POCT venous blood gas gem PROCEDURE ONCE Final result POCT, GENERIC PROVIDER 02/22/25 183 POCT Venous Blood Gas Docked Once Acknowledged LUDA MORTON 02/22/25 183 CMP STAT In process LUDA MORTON 02/22/25 183 CBC w/diff STAT Final result LUDA MORTON 02/22/25 183 Blood gas panel, venous STAT Collected LUDA MORTON 02/22/25 183 Ethyl Alcohol Plasma STAT Collected LUDA MORTON 02/22/25 183 Thyroid Stimulating Hormone, Plasma STAT In process LUDA MORTON 02/22/25 183 Free T4, Plasma STAT In process LUDA MORTON 02/22/25 183 Drug abuse screen STAT Acknowledged LUDA MORTON 02/22/251816 POCT glucose meter PROCEDURE ONCE Final result POCT, GENERIC PROVIDER ED Course as of 02/22/252199Feb 22, 20251955 CT head from outside hospital shows no acute intracranial process but multiple chronic infarcts and usho-ck-snygsmsh small-vessel disease. Additionally CT angio of the [...] Course User Index [MJ] Leon Wallace DO On my initial evaluation I was called [...] related to UTI as well as hypercarbic respiratory failure in relation to COPD or CHF. Patient was moved to a critical room immediately in the decision was made to intubate due to patient's altered mental status. Per chart review patient was previously a full code while in the hospital and we went through with intubation. Please see procedure notefor details. While patient was at outside hospital she was found to have a UTI and was treated withRocephin. They also coverage for atypical pneumonia with the azithromycin. She received a DuoNeb and no steroids. As mentioned above she did receive [...] roomed. Per chart review appears that she was much more lucid while at the outside hospital. Patient's initial PH was 7.2 a with a pCO2 of 60. She would have elevated creatinine and BUN consistent with GEOVANNI. No significant leukocytosis. BNP is mildly elevated. Acetone you from outside hospital was within normal ranges. Lactate also normal at VB. No further advanced imaging was required per [...] is unaware of what reaction. Pedi-Pre Tape [place] [Wound Dressing Adhesive] Rash Wellbutrin [Bupropion] Rash Leon Wallace DO Resident 02/22/251 Cosigned by Luda Morton MD at 02/28/2025 [...] Info) Description 03/27/2025 10:30 AM EDT Appointment [facility] Ultrasound [address] [place] [address] 03/27/2025 11:50 AM EDT Clinical Support Medical Office Building Lab [address] [place] [address] 03/27/2025 1:00 PM EDT Office Visit Medical Office Building Urology [address], [address] [place] [address] Cayla Erazo, [employer], DNP [address] [place] [address] 05/16/2025 8:00 AM EDT Office Visit [facility]en Crosby [address], [address] [place] [address] Karly Gracia MD [address] [place] [address] 06/07/2025 1:00 PM EDT Office Visit [facility] [address] [place] [address] Tom Iraheta MD [address] [place] [address] documented as of this encounter [...] EDT EXTUBATION Routine 02/24/2025 9:49 AM EDT [facility], E/M 30-74 MINUTES Routine 02/24/2025 7:08 AM EDT Acute respiratory failure with hypoxia and hypercapnia Acute kidney injury superimposed on CKD ([facility]) Chronic kidney disease, stage 3a ([facility]) Hyponatremia Acute encephalopathy Sepsis with encephalopathy without septic shock, due to unspecified organism ([facility]) Chronic diastolic (congestive) heart failure ([facility]) POCT GLUCOSE METER UNSOLICITED RESULTS Routine [...] AND TREAT Routine 02/23/2025 10:25 AM EDT [facility]ICAL [facility]ARE, E/M 30-74 MINUTES Routine 02/23/2025 9:10 AM EDT Acute respiratory failure with hypoxia and hypercapnia Acute kidney injury superimposed on CKD ([facility]) Chronic kidney disease, stage 3a ([facility]) Hyponatremia Acute encephalopathy Sepsis with encephalopathy without septic shock, due to unspecified organism ([facility]) SODIUM, PLASMA Timed 02/23/2025 8:34 AM [...] POCT glucose meter (03/02/2025 8:13 AM EDT) POCT Glucose 188(H) 74 - 99 mg/dL 03/02/2025 8:14 AM EDT [facility] Comment:Accuracy of a glucos e result [...] for testing. Comment 03/02/2025 8:14 AM EDT [facility] Deputy K 9 ID Stefanie Frances 025 8:14 AM EDT [facility]ALTHCARE LAB Device ID [id number] 03/02/2025 8:14 AM EDT [facility] Specimen Type POC Capillary 03/02/2025 8:14 AM EDT [facility]ARE [facility] Blood Capillary blood specimen / Unknown 03/02/2025 8:13 AM EDT 03/02/2025 8:14 AM EDT us Madonna Singleton MD LAB POINT OF CARE TE ST DOCKED DEVICE UNSOLICITED RESULTS Final Result Performing Organization Address City/[facility] Co de Phone Number [facility] [address] [place] [address] * (ABNORMAL) POCT glucose meter (03/01/2025 7:46 PM EDT) POCT Glucose 134(H) 74 - 99 mg/dL [...] 03/01/2025 7:47 PM EDT [facility] Deputy K 9 ID Kamron Freire 03/01/2025 7:47 PM EDT [facility] Device ID [id number] 03/01/2025 7:47 PM EDT HEALTHCARE LAB Specimen Type POC Capillary 03/01/2025 7:47 PM EDT [facility]ALTH[facility]ARE LAB Blood Capillary blood specimen / Unknown 03/01/2025 7:46 PM EDT 03/01/2025 7:47 PM EDT us Madonna Singleton MD LAB POINT OF CARE TE ST DOCKED DEVICE UNSOLICITED RESULTS Final Result Performing Organization Address City/[facility] Co de Phone Number [facility] [address] [place] [address] * (ABNORMAL) POCT glucose meter (03/01/2025 5:42 PM EDT) POCT Glucose 160(H) 74 - 99 mg/dL 03/01/2025 5:45 PM EDT [facility]ALTHCARE LAB Comment:Accuracy of a [...] for testing. Comment 03/01/2025 5:45 PM EDT HEALTHCARE LAB Deputy K 9 ID Norberto Smyth 03/01/20 5:45 PM EDT HEALTHCARE LAB Device ID [id number] 03/01/2025 5:45 PM EDT HEALTHCARE LAB Specimen Type POC Capillary 03/01/2025 5:45 PM EDT [facility] Blood Capillary blood specimen / Unknown 03/01/2025 5:42 PM EDT 03/01/2025 5:45 PM EDT us Madonna Singleton MD LAB POINT OF CARE TE ST DOCKED DEVICE UNSOLICITED RESULTS Final Result Performing Organization Address [facility] Co de Phone Number [facility] [address] [place] [address] * SEND HECTOR MESSAGE (03/01/2025 4:15 PM EDT) Urine Urine specimen obtained by clean catch procedure / Unknown Non-blood Collection / Unknown 03/01/2025 4:15 PM EDT 03/01/2025 4:26 PM EDT us Madonna Singleton MD LAB URINE ORDERABLES Final Resul t Performing Organization Address City/[facility]/ZIP Co de Phone Number [facility] [address] [place] [address] * (ABNORMAL) Urine Culture (03/01/2025 4:15 PM EDT) Culture 10,000 - 100,000 CFU/mL Enterobacter cloacae complex(A) CHRISTIANO 03/05/2025 12:12 PM EDT [facility] Comment: This isolate has been identified using the FDA Approved [employer] [place] System Edited result: Previously reported as [...] MICROBIOLOGY - GENERAL ORDER GIO Final Result [facility] [address] [place] [address] * Urinalysis Microscopic Examination (03/01/2025 4:15 PM EDT) Urine Urine specimen obtained by clean catch procedure / Unknown Non-blood Collection / Unknown 03/01/2025 4:15 PM EDT 03/01/2025 4:26 PM EDT us Madonna Singleton MD LAB URINE ORDERABLES Final Resul t Performing Organization Address City/[facility]/ZIP Co de Phone Number [facility] [address] [place] [address] * Urine Salmon Panel (03/01/2025 4:15 PM EDT) Extra Sent for Culture 03/01/2025 6:01 PM EDT [facility] Urine Urine specimen obtained by clean catch procedure / Unknown Non-blood Collection / Unknown 03/01/2025 4:15 PM EDT 03/01/2025 4:26 PM EDT us Madonna Singleton MD LAB URINE ORDERABLES Final Resul t Performing Organization Address [facility] Co de Phone Number [facility] [address] [place] [address] * (ABNORMAL) Urinalysis with reflex microscopic (Culture NOT Included) (03/01/2025 4:15 PM EDT) Color, Urine Yellow LAB URINALYSIS - AUTOMATED METHOD 03/01/2025 4:34 PM EDT [facility] Clarity, Urine Cloudy LAB URINALYSIS - AUTOMATED METHOD 03/01/2025 4:34 PM EDT [facility] Spec [place], Urine 1.008 1.005 - 1.030 LAB URINALYSIS - AUTOMATED METHOD 03/01/2025 4:34 PM EDT [facility] pH, Urine 6.5 5.0 - 8.0 LAB URINALYSIS - AUTOMATED METHOD 03/01/2025 4:34 PM EDT [facility] Protein, Urine 30(A) Negative mg/dL LAB URINALYSIS - AUTOMATED METHOD 03/01/2025 4:34 PM EDT [facility] Glucose, Urine Negative Negative mg/dL LAB URINALYSIS - AUTOMATED METHOD 03/01/2025 4:34 PM EDT [facility] Ketones, Urine Negative Negative mg/dL LAB URINALYSIS - AUTOMATED METHOD 03/01/2025 4:34 PM EDT [facility] Blood, Urine Large(A) Negative LAB URINALYSIS - AUTOMATED METHOD 03/01/2025 4:34 PM EDT [facility] Bilirubin, Urine Negative Negative LAB URINALYSIS - AUTOMATED METHOD 03/01/2025 4:34 PM EDT [facility] Urobilinogen, Urine 0.2 0.2 to 1.0 mg/dL LAB URINALYSIS - AUTOMATED METHOD 03/01/2025 4:34 PM EDT [facility] Leukocytes, Urine Large(A) Negative LAB URINALYSIS - AUTOMATED METHOD 03/01/2025 4:34 PM EDT [facility] Nitrite, Urine Negative Negative LAB URINALYSIS - AUTOMATED METHOD 03/01/2025 4:34 PM EDT [facility] RBC, Urine >50(A) 0 to 3 /HPF LAB URINALYSIS - AUTOMATED METHOD 03/01/2025 4:34 PM EDT [facility] WBC, Urine >50(A) 0 to 5 /HPF LAB URINALYSIS - AUTOMATED METHOD 03/01/2025 4:34 PM EDT [facility] Squamous Epithelial Cells 3 - 5 0 to 5 /HPF LAB URINALYSIS - AUTOMATED METHOD 03/01/2025 4:34 PM EDT [facility] Hyaline Casts 0 - 2 0 to 5 /LPF LAB URINALYSIS - AUTOMATED METHOD 03/01/2025 4:34 PM EDT [facility] Bacteria, Urine Negative Negative LAB URINALYSIS - AUTOMATED METHOD 03/01/2025 4:34 PM EDT [facility] Urine Urine specimen obtained by clean catch procedure / Unknown Non-blood Collection / Unknown 03/01/2025 4:15 PM EDT 03/01/2025 4:26 PM EDT us Madonna Mani [facility] LAB URINE ORDERABLES Final Resul t [facility] [address] [place] [address] * (ABNORMAL) POCT glucose meter (03/01/2025 12:03 PM EDT) POCT Glucose 206(H) 74 - 99 mg/dL 03/01/2025 12:05 PM EDT [facility] Comment:Accuracy of a [...] Comment 03/01/2025 12:05 PM EDT [facility]ARE LAB Deputy K 9 ID Nancy Hidalgo 03/01/2025 12:05 PM EDT HEALTHCARE LAB Device ID [id number] 03/01/2025 12:05 PM EDT [facility] Specimen Type POC Capillary 03/01/2025 12:05 PM EDT [facility] Blood Capillary blood specimen / Unknown 03/01/2025 12:03 PM EDT 03/01/2025 12:05 PM EDT us Madonna Mani [facility] POINT OF CARE TE ST DOCKED DEVICE UNSOLICITED RESULTS Final Result Performing Organization Address City/State/[facility] Co de Phone Number [facility] [address] [place] [address] * (ABNORMAL) POCT glucose meter (03/01/2025 7:59 [...] for testing. Comment 03/01/2025 8:01 AM EDT [facility] Deputy K 9 ID Nancy Hidalgo 03/01/2025 8:01 AM EDT [facility] Device ID [id number] 03/01/2025 8:01 AM EDT [facility] Specimen Type POC Capillary 03/01/2025 8:01 AM EDT [facility] Blood Capillary blood specimen / Unknown 03/01/2025 7:59 AM EDT 03/01/2025 8:01 AM EDT us Madonna Sagheer MD LAB POINT OF CARE TE ST DOCKED DEVICE UNSOLICITED RESULTS Final Result [facility] [address] [place] [id number] * (ABNORMAL) CBC and Differential (03/01/2025 4:08 AM EDT) [facility] Signature WBC Count 6.83 3.70 - 10.30 10*3/uL LAB HEMATOLOGY METHOD 03/01/2025 4:54 AM EDT [facility] RBC Count 3.61(L) 3.90 - 5.20 10*6/uL LAB HEMATOLOGY METHOD 03/01/2025 4:54 AM EDT [facility] HGB 9.2(L) 11.2 - 15.7 g/dL LAB HEMATOLOGY METHOD 03/01/2025 4:54 AM EDT [facility] HCT 29.9(L) 34.0 - 45.0 % LAB HEMATOLOGY METHOD 03/01/2025 4:54 AM EDT [facility] Platelet Count 294 155 - 369 10*3/uL LAB HEMATOLOGY METHOD 03/01/2025 4:54 AM EDT [facility] MCV 83 79 - 98 fL LAB HEMATOLOGY METHOD 03/01/2025 4:54 AM EDT [facility] MCH 25.5(L) 26.0 - 32.0 pg LAB HEMATOLOGY METHOD 03/01/2025 4:54 AM EDT [facility] MCHC 30.8 30.7 - 35.5 g/dL LAB HEMATOLOGY METHOD 03/01/2025 4:54 AM EDT [facility] RDW 15.1(H) 11.5 - 14.5 % LAB HEMATOLOGY METHOD 03/01/2025 4:54 AM EDT [facility] MPV 9.2 8.8 - 12.5 fL LAB HEMATOLOGY METHOD 03/01/2025 4:54 AM EDT [facility] nRBC 0.0 <=0.0 per 100 WBCs LAB HEMATOLOGY METHOD 03/01/2025 4:54 AM EDT [facility] Differential Type Automated LAB HEMATOLOGY METHOD 03/01/2025 4:54 AM EDT [facility] Neutrophils % 56 % LAB HEMATOLOGY METHOD 03/01/2025 4:54 AM EDT [facility] Lymphocytes % 25 % LAB HEMATOLOGY METHOD 03/01/2025 4:54 AM EDT [facility] Monocytes % 11 % LAB HEMATOLOGY METHOD 03/01/2025 4:54 AM EDT [facility] Eosinophils % 6 % LAB HEMATOLOGY METHOD 03/01/2025 4:54 AM EDT [facility] Basophils % 1 % LAB HEMATOLOGY METHOD 03/01/2025 4:54 AM EDT [facility] Immature Granulocytes % 1 % LAB HEMATOLOGY METHOD 03/01/2025 4:54 AM EDT [facility] Neutrophils Absolute 3.86 1.60 - 6.10 10*3/uL LAB HEMATOLOGY METHOD 03/01/2025 4:54 AM EDT [facility] Lymphocytes Absolute 1.70 1.20 - 3.90 10*3/uL LAB HEMATOLOGY METHOD 03/01/2025 4:54 AM EDT [facility] Monocytes Absolute 0.74 0.30 - 0.90 10*3/uL LAB HEMATOLOGY METHOD 03/01/2025 4:54 AM EDT [facility] Eosinophils Absolute 0.44 0.00 - 0.50 10*3/uL LAB HEMATOLOGY METHOD 03/01/2025 4:54 AM EDT [facility] Basophils Absolute 0.05 0.00 - 0.10 10*3/uL LAB HEMATOLOGY METHOD 03/01/2025 4:54 AM EDT [facility] Immature Granulocytes Absolute 0.04 0.00 - 0.06 10*3/uL LAB HEMATOLOGY METHOD 03/01/2025 4:54 AM EDT [facility] Blood Venous blood specimen / Unknown Venipuncture / Unknown 03/01/2025 4:08 AM EDT 03/01/2025 4:42 AM EDT Narrative [facility] - 03/01/2025 4:54 AM EDT Therapeutic decision making should be based on absolute values, rather than percentages. us Madonna Singleton MD LAB BLOOD ORDERABLES Final Resul t [facility] [address] [place] [address] * Magnesium, Plasma (03/01/2025 4:08 AM EDT) Magnesium, Plasma 2.0 1.9 - 2.4 mg/dL 03/01/2025 5:14 AM EDT [facility] Blood Venous blood specimen / Unknown Venipuncture / Unknown 03/01/2025 4:08 AM EDT 03/01/2025 4:43 AM EDT us Madonna Singleton MD LAB BLOOD ORDERABLES Final Resul t [facility] [address] [place] [address] * (ABNORMAL) Basic Metabolic Panel, Plasma (03/01/2025 4:08 AM EDT) Pathologist [facility] Glucose, Plasma 205(H) 74 - 99 mg/dL 03/01/2025 5:14 AM EDT [facility] BUN, Plasma 40(H) 8 - 23 mg/dL 03/01/2025 5:14 AM EDT [facility] Creatinine, Plasma 1.84(H) 0.60 - 1.10 mg/dL 03/01/2025 5:14 AM EDT [facility] BUN/Creatinine Ratio 22 03/01/2025 5:14 AM EDT [facility] Sodium, Plasma 125(L) 136 - 145 mmol/L 03/01/2025 5:14 AM EDT [facility] Potassium, Plasma 4.5 3.6 - 4.9 mmol/L 03/01/2025 5:14 AM EDT [facility] Chloride, Plasma 91(L) 97 - 107 mmol/L 03/01/2025 5:14 AM EDT [facility] CO2, Plasma 23 22 - 29 mmol/L 03/01/2025 5:14 AM EDT [facility] Anion Gap 11 6 - 16 mmol/L 03/01/2025 5:14 AM EDT [facility] Total Calcium, Plasma 8.8(L) 8.9 - 10.2 mg/dL 03/01/2025 5:14 AM EDT [facility] eGFRcr 30.1 mL/min/1.7 3m*2 03/01/2025 5:14 AM EDT [facility] Comment:Reported eGFRcr in m L/min/1.73m2 is based the CKD-EPI 2020 equation that does not use a race coefficient. Blood Venous blood specimen / Unknown Venipuncture / Unknown 03/01/2025 4:08 AM EDT 03/01/2025 4:43 AM EDT us Madonna Singleton MD LAB BLOOD ORDERABLES Final Resul t Performing Organization Address City/[facility] Co de Phone Number [facility] [address] [place] [address] * Phosphorus, Plasma (03/01/2025 4:08 AM EDT) Phosphorus, Plasma 4.4 2.5 - 4.5 mg/dL 03/01/2025 5:14 AM EDT [facility] Blood Venous blood specimen / Unknown Venipuncture / Unknown 03/01/2025 4:08 AM EDT 03/01/2025 4:43 AM EDT us Madonna Singleton MD LAB BLOOD ORDERABLES Final Resul t Performing Organization Address [facility] Phone Number [facility] [address] [place] [address] * (ABNORMAL) POCT glucose meter (03/01/2025 3:09 AM EDT) POCT Glucose 187(H) 74 - 99 mg/dL 03/01/2025 3:35 AM EDT [facility] Comment:Accuracy of [...] for testing. Comment 03/01/2025 3:35 AM EDT [facility] Deputy K 9 ID Pat Young 03/01/2025 3:35 AM EDT [facility] Device ID [id number] 03/01/2025 3:35 AM EDT [facility] Specimen Type POC Capillary 03/01/2025 3:35 AM EDT [facility] Blood Capillary blood specimen / Unknown 03/01/2025 3:09 AM EDT 03/01/2025 3:35 AM EDT us Madonna Singleton MD LAB POINT OF CARE TE ST DOCKED DEVICE UNSOLICITED RESULTS Final Result Performing Organization Address City/[facility]/ZIP Co de Phone Number [facility] [address] [place] [address] * (ABNORMAL) POCT glucose meter (02/28/2025 8:25 PM EDT) POCT Glucose 258(H) 74 - 99 mg/dL [...] for testing. Comment 02/28/2025 8:42 PM EDT [facility] Deputy K 9 ID Pat Young 02/28/2025 8:42 PM EDT [facility] Device ID [id number] 02/28/2025 8:42 PM EDT [facility] Specimen Type POC Capillary 02/28/2025 8:42 PM EDT [facility] Blood Capillary blood specimen / Unknown 02/28/2025 8:25 PM EDT 02/28/2025 8:42 PM EDT us Madonna Singleton MD LAB POINT OF CARE TE ST DOCKED DEVICE UNSOLICITED RESULTS Final Result [facility] [address] [place] [address] * (ABNORMAL) POCT glucose meter (02/28/2025 4:59 PM EDT) POCT Glucose 300(H) 74 - 99 mg/dL 02/28/2025 5:00 PM EDT [facility] Comment:Accuracy of [...] Comment 02/28/2025 5:00 PM EDT [facility] Deputy K 9 ID Nancy Hidlago 02/28/2025 5:00 PM EDT [facility] LAB Device ID [id number] 02/28/2025 5:00 PM EDT [facility] Specimen Type POC Capillary 02/28/2025 5:00 PM EDT [facility] Blood Capillary blood specimen / Unknown 02/28/2025 4:59 PM EDT 02/28/2025 5:00 PM EDT us Madonna Mani [facility] POINT OF CARE TE ST DOCKED DEVICE UNSOLICITED RESULTS Final Result Performing Organization Address City/State/[facility] Co de Phone Number [facility] [address] [place] [id number] * (ABNORMAL) CBC and Differential (02/28/2025 1:04 PM EDT) WBC Count 7.39 3.70 - 10.30 10*3/uL LAB HEMATOLOGY METHOD 02/28/2025 1:37 PM EDT [facility] RBC Count 4.30 3.90 - 5.20 10*6/uL LAB HEMATOLOGY METHOD 02/28/2025 1:37 PM EDT [facility] HGB 11.0(L) 11.2 - 15.7 g/dL LAB HEMATOLOGY METHOD 02/28/2025 1:37 PM EDT [facility] HCT 35.0 34.0 - 45.0 % LAB HEMATOLOGY METHOD 02/28/2025 1:37 PM EDT [facility] Platelet Count 399(H) 155 - 369 10*3/uL LAB HEMATOLOGY METHOD 02/28/2025 1:37 PM EDT [facility] MCV 81 79 - 98 fL LAB HEMATOLOGY METHOD 02/28/2025 1:37 PM EDT [facility] MCH 25.6(L) 26.0 - 32.0 pg LAB HEMATOLOGY METHOD 02/28/2025 1:37 PM EDT [facility] MCHC 31.4 30.7 - 35.5 g/dL LAB HEMATOLOGY METHOD 02/28/2025 1:37 PM EDT [facility] RDW 15.5(H) 11.5 - 14.5 % LAB HEMATOLOGY METHOD 02/28/2025 1:37 PM EDT [facility] MPV 9.0 8.8 - 12.5 fL LAB HEMATOLOGY METHOD 02/28/2025 1:37 PM EDT [facility] nRBC 0.0 <=0.0 per 100 WBCs LAB HEMATOLOGY METHOD 02/28/2025 1:37 PM EDT [facility] Differential Type Automated LAB HEMATOLOGY METHOD 02/28/2025 1:37 PM EDT [facility] Neutrophils % 62 % LAB HEMATOLOGY METHOD 02/28/2025 1:37 PM EDT [facility] Lymphocytes % 21 % LAB HEMATOLOGY METHOD 02/28/2025 1:37 PM EDT [facility] Monocytes % 9 % LAB HEMATOLOGY METHOD 02/28/2025 1:37 PM EDT [facility] Eosinophils % 6 % LAB HEMATOLOGY METHOD 02/28/2025 1:37 PM EDT [facility] Basophils % 1 % LAB HEMATOLOGY METHOD 02/28/2025 1:37 PM EDT [facility] Immature Granulocytes % 1 % LAB HEMATOLOGY METHOD 02/28/2025 1:37 PM EDT [facility] Neutrophils Absolute 4.64 1.60 - 6.10 10*3/uL LAB HEMATOLOGY METHOD 02/28/2025 1:37 PM EDT [facility] Lymphocytes Absolute 1.54 1.20 - 3.90 10*3/uL LAB HEMATOLOGY METHOD 02/28/2025 1:37 PM EDT [facility] Monocytes Absolute 0.69 0.30 - 0.90 10*3/uL LAB HEMATOLOGY METHOD 02/28/2025 1:37 PM EDT [facility] Eosinophils Absolute 0.41 0.00 - 0.50 10*3/uL LAB HEMATOLOGY METHOD 02/28/2025 1:37 PM EDT [facility] Basophils Absolute 0.05 0.00 - 0.10 10*3/uL LAB HEMATOLOGY METHOD 02/28/2025 1:37 PM EDT [facility] Immature Granulocytes Absolute 0.06 0.00 - 0.06 10*3/uL LAB HEMATOLOGY METHOD 02/28/2025 1:37 PM EDT [facility] Blood Venous blood specimen / Unknown Venipuncture / Unknown 02/28/2025 1:04 PM EDT 02/28/2025 1:28 PM EDT Narrative [facility] - 02/28/2025 1:37 PM EDT Therapeutic decision making should be based on absolute values, rather than percentages. us Madonna Singleton MD LAB BLOOD ORDERABLES Final Resul t Performing Organization Address City/[facility]/ZIP Co de Phone Number [facility] [address] [place] [address] * (ABNORMAL) Magnesium, Plasma (02/28/2025 1:04 PM EDT) Magnesium, Plasma 1.7(L) 1.9 - 2.4 mg/dL 02/28/2025 1:45 PM EDT [facility] Blood Venous blood specimen / Unknown Venipuncture / Unknown 02/28/2025 1:04 PM EDT 02/28/2025 1:14 PM EDT us Madonna Singleton MD LAB BLOOD ORDERABLES Final Resul t Performing Organization Address [facility]/ZIP Co de Phone Number [facility] [address] [place] [address] * (ABNORMAL) Basic Metabolic Panel, Plasma (02/28/2025 1:04 PM EDT) Glucose, Plasma 166(H) 74 - 99 mg/dL 02/28/2025 1:45 PM EDT [facility] BUN, Plasma 40(H) 8 - 23 mg/dL 02/28/2025 1:45 PM EDT [facility] Creatinine, Plasma 1.99(H) 0.60 - 1.10 mg/dL 02/28/2025 1:45 PM EDT [facility] BUN/Creatinine Ratio 20 02/28/2025 1:45 PM EDT [facility] Sodium, Plasma 130(L) 136 - 145 mmol/L 02/28/2025 1:45 PM EDT [facility] Potassium, Plasma 4.6 3.6 - 4.9 mmol/L 02/28/2025 1:45 PM EDT [facility] Chloride, Plasma 93(L) 97 - 107 mmol/L 02/28/2025 1:45 PM EDT [facility] CO2, Plasma 24 22 - 29 mmol/L 02/28/2025 1:45 PM EDT [facility] Anion Gap 13 6 - 16 mmol/L 02/28/2025 1:45 PM EDT [facility] Total Calcium, Plasma 9.3 8.9 - 10.2 mg/dL 02/28/2025 1:45 PM EDT [facility] eGFRcr 27.4 mL/min/1.7 3m*2 02/28/2025 1:45 PM EDT [facility] Comment:Reported eGFRcr in m L/min/1.73m2 is based the CKD-EPI 2020 equation that does not use a race coefficient. Blood Venous blood specimen / Unknown Venipuncture / Unknown 02/28/2025 1:04 PM EDT 02/28/2025 1:14 PM EDT us Madonna Singleton MD LAB BLOOD ORDERABLES Final Resul t Performing Organization Address [facility] Co de Phone Number [facility] [address] [place] [address] * Phosphorus, Plasma (02/28/2025 1:04 PM EDT) Phosphorus, Plasma 4.1 2.5 - 4.5 mg/dL 02/28/2025 1:45 PM EDT [facility] Blood Venous blood specimen / Unknown Venipuncture / Unknown 02/28/2025 1:04 PM EDT 02/28/2025 1:14 PM EDT us Madonna Singleton MD LAB BLOOD ORDERABLES Final Resul t Performing Organization Address City/[facility]/ZIP Co de Phone Number [facility] [address] [place] [address] * (ABNORMAL) POCT glucose meter (02/28/2025 12:17 PM EDT) [facility] POCT Glucose 161(H) 74 - 99 mg/dL [...] for testing. Comment 02/28/2025 12:19 PM EDT [facility] Deputy K 9 ID Nancy Hidalgo 02/28/2025 12:19 PM EDT [facility] LAB Device ID [id number] 02/28/2025 12:19 PM EDT [facility] Specimen Type POC Capillary 02/28/2025 12:19 PM EDT [facility] Blood Capillary blood specimen / Unknown 02/28/2025 12:17 PM EDT 02/28/2025 12:19 PM EDT [facility] POINT OF CARE TE ST DOCKED DEVICE UNSOLICITED RESULTS Final Result [facility] [address] [place] [address] * (ABNORMAL) POCT glucose meter (02/27/2025 8:12 PM EDT) [facility] POCT Glucose 211(H) 74 - 99 mg/dL [...] Comment 02/27/2025 8:14 PM EDT [facility] Deputy K 9 ID Pat Young 02/27/2025 8:14 PM EDT [facility] Device ID [id number] 02/27/2025 8:14 PM EDT [facility] Specimen Type POC Capillary 02/27/2025 8:14 PM EDT [facility] Blood Capillary blood specimen / Unknown 02/27/2025 8:12 PM EDT 02/27/2025 8:14 PM EDT us Madonna Singleton MD LAB POINT OF CARE TE ST DOCKED DEVICE UNSOLICITED RESULTS Final Result Performing Organization Address City/[facility]/ZIP Co de Phone Number [facility] [address] [place] [address] * (ABNORMAL) POCT glucose meter (02/27/2025 5:20 PM EDT) POCT Glucose 171(H) 74 - 99 mg/dL [...] for testing. Comment 02/27/2025 5:21 PM EDT [facility] Deputy K 9 ID Janice Hidalgoty 02/27/2025 5:21 PM EDT [facility] Device ID [id number] 02/27/2025 5:21 PM EDT [facility] Specimen Type POC Capillary 02/27/2025 5:21 PM EDT [facility] Blood Capillary blood specimen / Unknown 02/27/2025 5:20 PM EDT 02/27/2025 5:21 PM EDT us Madonna Singleton MD LAB POINT OF CARE TE ST DOCKED DEVICE UNSOLICITED RESULTS Final Result Performing Organization Address City/[facility]/ZIP Co de Phone Number [facility] [address] [place] [address] * (ABNORMAL) POCT glucose meter (02/27/2025 12:29 PM EDT) POCT Glucose 247(H) 74 - 99 mg/dL [...] Comment 02/27/2025 12:30 PM EDT [facility] Deputy K 9 ID Daniela Carroll 025 12:30 PM EDT [facility]ALTH[facility] LAB Device ID [id number] 02/27/2025 12:30 PM EDT [facility] Specimen Type POC Capillary 02/27/2025 12:30 PM EDT [facility] Blood Capillary blood specimen / Unknown 02/27/2025 12:29 PM EDT 02/27/2025 12:30 PM EDT Ludy Hill MD LAB POINT OF CARE TE ST DOCKED DEVICE UNSOLICITED RESULTS Final Result Performing Organization Address City/State/[facility] de Phone Number [facility] [address] [place] [address] * XR Panorex (02/27/2025 12:13 PM EDT) [...] in the posterior aspect of tooth #31. [place] wear in tooth number 8, 9 and 23. No periapical lucency Procedure Note Lucas Cristobal MD - 02/27/2025 CLINICAL INDICATION: Odontogenic infection TECHNIQUE: XR PANOREX COMPARISON: None. FINDINGS: Rounded lucency in tooth #6. Aggressive destruction in the posterioraspect of tooth #31. [place] wear in tooth number 8, 9 and [...] - 99 mg/dL 02/27/2025 8:21 AM EDT [facility] Comment:Accuracy of a [...] for testing. Comment 02/27/2025 8:21 AM EDT [facility] Deputy K 9 ID Daniela Carroll 025 8:21 AM EDT [facility] Device ID [id number] 02/27/2025 8:21 AM EDT [facility] Specimen Type POC Capillary 02/27/2025 8:21 AM EDT [facility] Blood Capillary blood specimen / Unknown 02/27/2025 8:19 AM EDT 02/27/2025 8:21 AM EDT us Ludy Hill MD LAB POINT OF CARE TE ST DOCKED DEVICE UNSOLICITED RESULTS Final Result [facility] [address] [place] [address] * (ABNORMAL) POCT glucose meter (02/26/2025 7:37 [...] Comment 02/26/2025 7:38 PM EDT [facility]ALTH[facility]ARE [facility] Deputy K 9 ID Daniela Mcbride 02/26/2025 7:38 PM EDT [facility] Device ID [id number] 02/26/2025 7:38 PM EDT [facility] Specimen Type POC Capillary 02/26/2025 7:38 PM EDT [facility] Blood Capillary blood specimen / Unknown 02/26/2025 7:37 PM EDT 02/26/2025 7:38 PM EDT us Ludy Hill MD LAB POINT OF CARE TE ST DOCKED DEVICE UNSOLICITED RESULTS Final Result Performing Organization Address City/State/[facility] Co de Phone Number [facility] [address] [place] [address] * (ABNORMAL) POCT glucose meter (02/26/2025 5:16 PM EDT) [facility] Signature POCT Glucose 208(H) 74 - 99 mg/dL 02/26/2025 5:18 PM EDT [facility] Comment:Accuracy of a [...] Comment 02/26/2025 5:18 PM EDT [facility] Deputy K 9 ID Bassem Jay 02/26/2025 5:18 PM EDT [facility]ARE LAB Device ID [id number] 02/26/2025 5:18 PM EDT [facility] Specimen Type POC Capillary 02/26/2025 5:18 PM EDT [facility] Blood Capillary blood specimen / Unknown 02/26/2025 5:16 PM EDT 02/26/2025 5:18 PM EDT us Ludy Hill MD LAB POINT OF CARE TE ST DOCKED DEVICE UNSOLICITED RESULTS Final Result [facility] [address] [place] [address] * (ABNORMAL) POCT glucose meter (02/26/2025 1:08 PM EDT) POCT Glucose 223(H) 74 - 99 mg/dL [...] for testing. Comment 02/26/2025 1:09 PM EDT [facility] Deputy K 9 ID Bassem Jay 02/26/2025 1:09 PM EDT [facility] Device ID [id number] 02/26/2025 1:09 PM EDT [facility] Specimen Type POC Capillary 02/26/2025 1:09 PM EDT [facility] Blood Capillary blood specimen / Unknown 02/26/2025 1:08 PM EDT 02/26/2025 1:09 PM EDT Ludy Hill MD LAB POINT OF CARE TE ST DOCKED DEVICE UNSOLICITED RESULTS Final Result [facility] [address] [place] [address] * (ABNORMAL) POCT glucose meter (02/26/2025 9:45 AM EDT) Pathologist [facility] POCT Glucose 187(H) 74 - 99 mg/dL 02/26/2025 9:46 AM EDT [facility] Comment:Accuracy of [...] for testing. Comment 02/26/2025 9:46 AM EDT [facility] Deputy K 9 ID Bassem Jay 02/26/2025 9:46 AM EDT [facility] LAB Device ID [id number] 02/26/2025 9:46 AM EDT [facility] Specimen Type POC Capillary 02/26/2025 9:46 AM EDT [facility] Blood Capillary blood specimen / Unknown 02/26/2025 9:45 AM EDT 02/26/2025 9:46 AM EDT us Ludy Hill MD LAB POINT OF CARE TE ST DOCKED DEVICE UNSOLICITED RESULTS Final Result [facility] [address] [place] [address] * (ABNORMAL) Hemogram (CBC) (02/26/2025 4:51 AM EDT) WBC Count 7.59 3.70 - 10.30 10*3/uL LAB HEMATOLOGY METHOD 02/26/2025 5:25 AM EDT [facility] RBC Count 4.00 3.90 - 5.20 10*6/uL LAB HEMATOLOGY METHOD 02/26/2025 5:25 AM EDT [facility] HGB 10.3(L) 11.2 - 15.7 g/dL LAB HEMATOLOGY METHOD 02/26/2025 5:25 AM EDT [facility] HCT 32.3(L) 34.0 - 45.0 % LAB HEMATOLOGY METHOD 02/26/2025 5:25 AM EDT [facility] Platelet Count 375(H) 155 - 369 10*3/uL LAB HEMATOLOGY METHOD 02/26/2025 5:25 AM EDT [facility] MCV 81 79 - 98 fL LAB HEMATOLOGY METHOD 02/26/2025 5:25 AM EDT [facility] MCH 25.8(L) 26.0 - 32.0 pg LAB HEMATOLOGY METHOD 02/26/2025 5:25 AM EDT [facility] MCHC 31.9 30.7 - 35.5 g/dL LAB HEMATOLOGY METHOD 02/26/2025 5:25 AM EDT [facility] RDW 15.5(H) 11.5 - 14.5 % LAB HEMATOLOGY METHOD 02/26/2025 5:25 AM EDT [facility] MPV 8.9 8.8 - 12.5 fL LAB HEMATOLOGY METHOD 02/26/2025 5:25 AM EDT [facility] nRBC 0.0 <=0.0 per 100 WBCs LAB HEMATOLOGY METHOD 02/26/2025 5:25 AM EDT [facility] Blood Venous blood specimen / Unknown Venipuncture / Unknown 02/26/2025 4:51 AM EDT 02/26/2025 5:12 AM EDT us Ludy Hill MD LAB BLOOD ORDERABLES Final Resul t Performing Organization Address City/[facility]/ZIP Co de Phone Number [facility] [address] [place] [address] * (ABNORMAL) Magnesium, Plasma (02/26/2025 4:51 AM EDT) Magnesium, Plasma 1.7(L) 1.9 - 2.4 mg/dL 02/26/2025 5:54 AM EDT [facility] Blood Venous blood specimen / Unknown Venipuncture / Unknown 02/26/2025 4:51 AM EDT 02/26/2025 5:13 AM EDT us Ludy Hill MD LAB BLOOD ORDERABLES Final Resul t Performing Organization Address City/[facility]/ZIP Co de Phone Number [facility] [address] [place] [address] * (ABNORMAL) Renal function panel (02/26/2025 4:51 AM EDT) Glucose, Plasma 156(H) 74 - 99 mg/dL 02/26/2025 5:54 AM EDT [facility] BUN, Plasma 26(H) 8 - 23 mg/dL 02/26/2025 5:54 AM EDT [facility] Creatinine, Plasma 1.62(H) 0.60 - 1.10 mg/dL 02/26/2025 5:54 AM EDT [facility] BUN/Creatinine Ratio 16 02/26/2025 5:54 AM EDT [facility] Sodium, Plasma 133(L) 136 - 145 mmol/L 02/26/2025 5:54 AM EDT [facility] Potassium, Plasma 4.2 3.6 - 4.9 mmol/L 02/26/2025 5:54 AM EDT [facility] Chloride, Plasma 96(L) 97 - 107 mmol/L 02/26/2025 5:54 AM EDT [facility] CO2, Plasma 24 22 - 29 mmol/L 02/26/2025 5:54 AM EDT [facility] Anion Gap 13 6 - 16 mmol/L 02/26/2025 5:54 AM EDT [facility] Total Calcium, Plasma 8.9 8.9 - 10.2 mg/dL 02/26/2025 5:54 AM EDT [facility] Phosphorus, Plasma 3.8 2.5 - 4.5 mg/dL 02/26/2025 5:54 AM EDT [facility] Albumin, Plasma 3.5 3.5 - 5.2 g/dL 02/26/2025 5:54 AM EDT [facility] eGFRcr 35.1 mL/min/1.7 3m*2 02/26/2025 5:54 AM EDT [facility] Comment:Reported eGFRcr in m L/min/1.73m2 is based the CKD-EPI 2020 equation that does not use a race coefficient. Blood Venous blood specimen / Unknown Venipuncture / Unknown 02/26/2025 4:51 AM EDT 02/26/2025 5:13 AM EDT us Ludy Hill MD LAB BLOOD ORDERABLES Final Resul t [facility] [address] [place] [address] * (ABNORMAL) POCT glucose meter (02/25/2025 8:37 PM EDT) POCT Glucose 289(H) 74 - 99 mg/dL [...] Comment 02/25/2025 8:39 PM EDT [facility] Deputy K 9 ID Daniela Mcbride 02/25/2025 8:39 PM EDT [facility]ALTH[facility]ARE LAB Device ID [id number] 02/25/2025 8:39 PM EDT [facility] Specimen Type POC Capillary 02/25/2025 8:39 PM EDT [facility] Blood Capillary blood specimen / Unknown 02/25/2025 8:37 PM EDT 02/25/2025 8:39 PM EDT us Ludy Hill MD LAB POINT OF CARE TE ST DOCKED DEVICE UNSOLICITED RESULTS Final Result Performing Organization Address City/[facility] Co de Phone Number [facility] [address] [place] [address] * ECG Adult (02/25/2025 6:38 PM EDT) EKG DIAGNOSIS CLASS Abnormal MUSE ECG Ventricular Rate 68 BPM MUSE ECG Atrial Rate 68 BPM MUSE ECG SC Interval 198 ms MUSE ECG QRSD Interval 136 ms MUSE ECG QT Interval 450 ms MUSE ECG QTC Interval 478 ms MUSE ECG P [place] 71 degrees MUSE ECG R [place] 265 degrees MUSE ECG T Wave [place] 50 degrees MUSE ECG Diagnosis Sinus rhythm [...] - 99 mg/dL 02/25/2025 5:30 PM EDT [facility] Comment:Accuracy of a [...] 02/25/2025 5:30 PM EDT [facility] Deputy K 9 ID Bassem Jay 02/25/2025 5:30 PM EDT [facility] LAB Device ID [id number] 02/25/2025 5:30 PM EDT [facility] Specimen Type POC Capillary 02/25/2025 5:30 PM EDT [facility] Blood Capillary blood specimen / Unknown 02/25/2025 5:28 PM EDT 02/25/2025 5:30 PM EDT Ludy Hill MD LAB POINT OF CARE TE ST DOCKED DEVICE UNSOLICITED RESULTS Final Result Performing Organization Address City/State/[facility] Co de Phone Number [facility] [address] [place] [address] * (ABNORMAL) POCT glucose meter (02/25/2025 1:08 PM EDT) [facility] POCT Glucose 157(H) 74 - 99 mg/dL 02/25/2025 1:09 PM EDT [facility] Comment:Accuracy of [...] for testing. Comment 02/25/2025 1:09 PM EDT [facility] Deputy K 9 ID Bassem Jay 02/25/2025 1:09 PM EDT [facility] Device ID [id number] 02/25/2025 1:09 PM EDT [facility] Specimen Type POC Capillary 02/25/2025 1:09 PM EDT [facility] Blood Capillary blood specimen / Unknown 02/25/2025 1:08 PM EDT 02/25/2025 1:09 PM EDT us Ludy Hill MD LAB POINT OF CARE TE ST DOCKED DEVICE UNSOLICITED RESULTS Final Result Performing Organization Address [facility] Co de Phone Number [facility] [address] [place] [address] * ECG Adult (02/25/2025 12:27 PM EDT) EKG DIAGNOSIS CLASS Abnormal MUSE ECG Ventricular Rate 79 BPM MUSE ECG Atrial Rate 79 BPM MUSE ECG SC Interval 184 ms MUSE ECG QRSD Interval 134 ms MUSE ECG QT Interval 414 ms MUSE ECG QTC Interval 474 ms MUSE ECG R [place] 229 degrees MUSE ECG T Wave [place] 59 degrees MUSE ECG Diagnosis Sinus rhythm with premature supraventricular complexes MUSE ECG Diagnosis Right bundle branch block MUSE ECG Diagnosis Abnormal ECG MUSE ECG Diagnosis MUSE ECG Diagnosis Confirmed by Bert Pierre ([id number]) on 02/25/2025 2:37:14 PM MUSE ECG 02/25/2025 12:2 7 PM EDT 02/25/2025 2:37 PM EDT us Ludy Hill MD ECG ORDERABLES Final Result Performing Organization Address [facility] de Phone Number MUSE ECG * (ABNORMAL) POCT glucose meter (02/25/2025 8:21 AM EDT) Pathologist [facility] POCT Glucose 128(H) 74 - 99 mg/dL 02/25/2025 8:22 AM EDT [facility] Comment:Accuracy of [...] for testing. Comment 02/25/2025 8:22 AM EDT [facility] Deputy K 9 ID Bassem Jay 02/25/2025 8:22 AM EDT [facility] Device ID [id number] 02/25/2025 8:22 AM EDT [facility] Specimen Type POC Capillary 02/25/2025 8:22 AM EDT [facility] Blood Capillary blood specimen / Unknown 02/25/2025 8:21 AM EDT 02/25/2025 8:22 AM EDT us Luda Ralph MD LAB POINT OF CARE TE ST DOCKED DEVICE UNSOLICITED RESULTS Final Result Performing Organization Address City/[facility]/ZIP Co de Phone Number [facility] [address] [place] [address] * (ABNORMAL) Cystatin C (02/25/2025 1:36 AM EDT) Cystatin C 2.37(H) 0.61 - 0.95 mg/L 02/25/2025 2:27 AM EDT [facility] Blood Venous blood specimen / Unknown Venipuncture / Unknown 02/25/2025 1:36 AM EDT 02/25/2025 1:57 AM EDT us Luda Ralph MD LAB BLOOD ORDERABLES Final R esult [facility] [address] [place] [address] * (ABNORMAL) Basic Metabolic Panel, Plasma (02/25/2025 1:36 AM EDT) Glucose, Plasma 95 74 - 99 mg/dL 02/25/2025 2:27 AM EDT [facility] BUN, Plasma 34(H) 8 - 23 mg/dL 02/25/2025 2:27 AM EDT [facility] Creatinine, Plasma 1.62(H) 0.60 - 1.10 mg/dL 02/25/2025 2:27 AM EDT [facility] BUN/Creatinine Ratio 21 02/25/2025 2:27 AM EDT [facility] Sodium, Plasma 134(L) 136 - 145 mmol/L 02/25/2025 2:27 AM EDT [facility] Potassium, Plasma 3.9 3.6 - 4.9 mmol/L 02/25/2025 2:27 AM EDT [facility] Chloride, Plasma 97 97 - 107 mmol/L 02/25/2025 2:27 AM EDT [facility] CO2, Plasma 23 22 - 29 mmol/L 02/25/2025 2:27 AM EDT [facility] Anion Gap 14 6 - 16 mmol/L 02/25/2025 2:27 AM EDT [facility] Total Calcium, Plasma 8.9 8.9 - 10.2 mg/dL 02/25/2025 2:27 AM EDT [facility] eGFRcr 35.1 mL/min/1.7 3m*2 02/25/2025 2:27 AM EDT [facility] Comment:Reported eGFRcr in m L/min/1.73m2 is based the CKD-EPI 2020 equation that does not use a race coefficient. Blood Venous blood specimen / Unknown Venipuncture / Unknown 02/25/2025 1:36 AM EDT 02/25/2025 1:57 AM EDT us Luda Ralph MD LAB BLOOD ORDERABLES Final R esult [facility] [address] [place] [address] * (ABNORMAL) POCT glucose meter (02/24/2025 8:21 [...] Comment 02/24/2025 8:22 PM EDT [facility] Deputy K 9 ID Daniela Mcbride 02/24/2025 8:22 PM EDT [facility] Device ID [id number] 02/24/2025 8:22 PM EDT [facility] Specimen Type POC Capillary 02/24/2025 8:22 PM EDT [facility] Blood Capillary blood specimen / Unknown 02/24/2025 8:21 PM EDT 02/24/2025 8:22 PM EDT Luda Ralph MD LAB POINT OF CARE TE ST DOCKED DEVICE UNSOLICITED RESULTS Final Result Performing Organization Address City/[facility] Co de Phone Number [facility] [address] [place] [address] * POCT glucose meter (02/24/2025 5:55 PM EDT) POCT Glucose 93 74 - 99 mg/dL 02/24/2025 5:56 PM EDT [facility] Comment:Accuracy of [...] Comment 02/24/2025 5:56 PM EDT [facility] Deputy K 9 ID Delroy Bernal 02/24/2025 5:56 PM EDT [facility] Device ID [id number] 02/24/2025 5:56 PM EDT [facility] Specimen Type POC Capillary 02/24/2025 5:56 PM EDT [facility] Blood Capillary blood specimen / Unknown 02/24/2025 5:55 PM EDT 02/24/2025 5:56 PM EDT Luda Ralph MD LAB POINT OF CARE TE ST DOCKED DEVICE UNSOLICITED RESULTS Final Result Performing Organization Address City/[facility] de Phone Number [facility] [address] [place] [address] * (ABNORMAL) POCT glucose meter (02/24/2025 11:26 [...] for testing. Comment 02/24/2025 11:27 AM EDT [facility] Deputy K 9 ID Delroy Bernal 02/24/2025 11:27 AM EDT [facility] Device ID [id number] 02/24/2025 11:27 AM EDT [facility] Specimen Type POC Capillary 02/24/2025 11:27 AM EDT [facility] Blood Capillary blood specimen / Unknown 02/24/2025 11:26 AM EDT 02/24/2025 11:27 AM EDT us Luda Ralph MD LAB POINT OF CARE TE ST DOCKED DEVICE UNSOLICITED RESULTS Final Result Performing Organization Address City/State/[facility] Co de Phone Number [facility] [address] [place] [id number] * [place] CRITICAL CARE, E/M 30-74 MINUTES (02/24/2025 7:08 [...] POCT glucose meter (02/24/2025 5:20 AM EDT) [facility] POCT Glucose 180(H) 74 - 99 mg/dL 02/24/2025 5:22 AM EDT [facility] Comment:Accuracy of a [...] for testing. Comment 02/24/2025 5:22 AM EDT [facility] Deputy K 9 ID Daniela Mcbride 02/24/2025 5:22 AM EDT [facility] Device ID [id number] 02/24/2025 5:22 AM EDT [facility] Specimen Type POC Capillary 02/24/2025 5:22 AM EDT [facility] Blood Capillary blood specimen / Unknown 02/24/2025 5:20 AM EDT 02/24/2025 5:22 AM EDT us Luda Ralph MD LAB POINT OF CARE TE ST DOCKED DEVICE UNSOLICITED RESULTS Final Result Performing Organization Address [facility] Co de Phone Number [facility] [address] [place] [address] * (ABNORMAL) Cystatin C (02/24/2025 1:01 AM EDT) [facility] Cystatin C 2.5(H) 0.61 - 0.95 mg/L 02/24/2025 10:16 AM EDT [facility] Blood Venous blood specimen / Unknown Venipuncture / Unknown 02/24/2025 1:01 AM EDT 02/24/2025 1:06 AM EDT us Luda Ralph MD LAB BLOOD ORDERABLES Final R esult Performing Organization Address City/[facility]/ZIP Co de Phone Number [facility] [address] [place] [address] * (ABNORMAL) CBC and Differential (02/24/2025 1:01 AM EDT) [facility] Signature WBC Count 9.39 3.70 - 10.30 10*3/uL LAB HEMATOLOGY METHOD 02/24/2025 1:16 AM EDT [facility] RBC Count 3.53(L) 3.90 - 5.20 10*6/uL LAB HEMATOLOGY METHOD 02/24/2025 1:16 AM EDT [facility] HGB 9.1(L) 11.2 - 15.7 g/dL LAB HEMATOLOGY METHOD 02/24/2025 1:16 AM EDT [facility] HCT 28.3(L) 34.0 - 45.0 % LAB HEMATOLOGY METHOD 02/24/2025 1:16 AM EDT [facility] Platelet Count 315 155 - 369 10*3/uL LAB HEMATOLOGY METHOD 02/24/2025 1:16 AM EDT [facility] MCV 80 79 - 98 fL LAB HEMATOLOGY METHOD 02/24/2025 1:16 AM EDT [facility] MCH 25.8(L) 26.0 - 32.0 pg LAB HEMATOLOGY METHOD 02/24/2025 1:16 AM EDT [facility] MCHC 32.2 30.7 - 35.5 g/dL LAB HEMATOLOGY METHOD 02/24/2025 1:16 AM EDT [facility] RDW 15.2(H) 11.5 - 14.5 % LAB HEMATOLOGY METHOD 02/24/2025 1:16 AM EDT [facility] MPV 9.3 8.8 - 12.5 fL LAB HEMATOLOGY METHOD 02/24/2025 1:16 AM EDT [facility] nRBC 0.0 <=0.0 per 100 WBCs LAB HEMATOLOGY METHOD 02/24/2025 1:16 AM EDT [facility] Differential Type Automated LAB HEMATOLOGY METHOD 02/24/2025 1:16 AM EDT [facility] Neutrophils % 71 % LAB HEMATOLOGY METHOD 02/24/2025 1:16 AM EDT [facility] Lymphocytes % 15 % LAB HEMATOLOGY METHOD 02/24/2025 1:16 AM EDT [facility] Monocytes % 13 % LAB HEMATOLOGY METHOD 02/24/2025 1:16 AM EDT [facility] Eosinophils % 0 % LAB HEMATOLOGY METHOD 02/24/2025 1:16 AM EDT [facility] Basophils % 0 % LAB HEMATOLOGY METHOD 02/24/2025 1:16 AM EDT [facility] Immature Granulocytes % 1 % LAB HEMATOLOGY METHOD 02/24/2025 1:16 AM EDT [facility] Neutrophils Absolute 6.64(H) 1.60 - 6.10 10*3/uL LAB HEMATOLOGY METHOD 02/24/2025 1:16 AM EDT [facility] Lymphocytes Absolute 1.40 1.20 - 3.90 10*3/uL LAB HEMATOLOGY METHOD 02/24/2025 1:16 AM EDT [facility] Monocytes Absolute 1.25(H) 0.30 - 0.90 10*3/uL LAB HEMATOLOGY METHOD 02/24/2025 1:16 AM EDT [facility] Eosinophils Absolute 0.02 0.00 - 0.50 10*3/uL LAB HEMATOLOGY METHOD 02/24/2025 1:16 AM EDT [facility] Basophils Absolute 0.02 0.00 - 0.10 10*3/uL LAB HEMATOLOGY METHOD 02/24/2025 1:16 AM EDT [facility] Immature Granulocytes Absolute 0.06 0.00 - 0.06 10*3/uL LAB HEMATOLOGY METHOD 02/24/2025 1:16 AM EDT [facility] Blood Venous blood specimen / Unknown Venipuncture / Unknown 02/24/2025 1:01 AM EDT 02/24/2025 1:06 AM EDT Narrative [facility] - 02/24/2025 1:16 AM EDT Therapeutic decision making should be based on absolute values, rather than percentages. us Luda Ralph MD LAB BLOOD ORDERABLES Final R esult [facility] [address] [place] [address] * (ABNORMAL) Comprehensive metabolic panel (02/24/2025 1:01 AM EDT) Glucose, Plasma 152(H) 74 - 99 mg/dL 02/24/2025 1:44 AM EDT [facility] BUN, Plasma 40(H) 8 - 23 mg/dL 02/24/2025 1:44 AM EDT [facility] Creatinine, Plasma 2.04(H) 0.60 - 1.10 mg/dL 02/24/2025 1:44 AM EDT [facility] BUN/Creatinine Ratio 20 02/24/2025 1:44 AM EDT [facility] Sodium, Plasma 132(L) 136 - 145 mmol/L 02/24/2025 1:44 AM EDT [facility] Potassium, Plasma 4.9 3.6 - 4.9 mmol/L 02/24/2025 1:44 AM EDT [facility] Chloride, Plasma 97 97 - 107 mmol/L 02/24/2025 1:44 AM EDT [facility] CO2, Plasma 22 22 - 29 mmol/L 02/24/2025 1:44 AM EDT [facility] Anion Gap 13 6 - 16 mmol/L 02/24/2025 1:44 AM EDT [facility] Total Calcium, Plasma 8.6(L) 8.9 - 10.2 mg/dL 02/24/2025 1:44 AM EDT [facility] Total Protein 6.9 6.3 - 7.9 g/dL 02/24/2025 1:44 AM EDT [facility] Albumin, Plasma 3.3(L) 3.5 - 5.2 g/dL 02/24/2025 1:44 AM EDT [facility] AST, Plasma 16 10 - 35 U/L 02/24/2025 1:44 AM EDT [facility] Comment:Hemolyzed, result ma y be falsely increased. ALT, Plasma 15 10 - 35 U/L 02/24/2025 1:44 AM EDT [facility] Alkaline Phosphatase, Plasma 105 46 - 142 U/L 02/24/2025 1:44 AM EDT [facility] Total Bilirubin, Plasma <0.2(L) 0.2 - 1.1 mg/dL 02/24/2025 1:44 AM EDT [facility] eGFRcr 26.6 mL/min/1.7 3m*2 02/24/2025 1:44 AM EDT [facility] Comment:Reported eGFRcr in m L/min/1.73m2 is based the CKD-EPI 2020 equation that does not use a race coefficient. Blood Venous blood specimen / Unknown Venipuncture / Unknown 02/24/2025 1:01 AM EDT 02/24/2025 1:06 AM EDT us Luda Ralph MD LAB BLOOD ORDERABLES Final R esult Performing Organization Address City/[facility]/[place] [address] * (ABNORMAL) Ionized calcium, whole blood (02/24/2025 1:01 AM EDT) Ionized Calcium, Whole Blood 4.4(L) 4.6 - 5.1 mg/dL LAB HEMATOLOGY METHOD 02/24/2025 1:14 AM EDT [facility] Blood Venous blood specimen / Unknown Venipuncture / Unknown 02/24/2025 1:01 AM EDT 02/24/2025 1:13 AM EDT us Luda Ralph MD LAB BLOOD ORDERABLES Final R esult Performing Organization Address [facility] [place] [address] * Phosphorus (02/24/2025 1:01 AM EDT) Phosphorus, Plasma 3.0 2.5 - 4.5 mg/dL 02/24/2025 1:44 AM EDT [facility] Blood Venous blood specimen / Unknown Venipuncture / Unknown 02/24/2025 1:01 AM EDT 02/24/2025 1:06 AM EDT us Luda Ralph MD LAB BLOOD ORDERABLES Final R esult Performing Organization Address City/[facility] [place] [address] * Magnesium, Plasma (02/24/2025 1:01 AM EDT) Magnesium, Plasma 2.2 1.9 - 2.4 mg/dL 02/24/2025 1:44 AM EDT [facility] Blood Venous blood specimen / Unknown Venipuncture / Unknown 02/24/2025 1:01 AM EDT 02/24/2025 1:06 AM EDT Luda Ralph MD LAB BLOOD ORDERABLES Final R esult Performing Organization Address [facility] Co de Phone Number [facility] [address] [place] [address] * (ABNORMAL) Procalcitonin (02/24/2025 1:01 AM EDT) Procalcitonin, Plasma 0.12(H) <0.09 ng/mL 02/24/2025 1:44 AM EDT [facility] Blood Venous blood specimen / Unknown Venipuncture / Unknown 02/24/2025 1:01 AM EDT 02/24/2025 1:06 AM EDT Narrative [facility] - 02/24/2025 1:44 AM EDT Procalcitonin [...] predict 28 day mortality risk. Please consult [email or web address] for more information. Test performed at [facility], [facility] Laboratory. Luda Ralph MD LAB BLOOD ORDERABLES Final R esult Performing Organization Address City/[facility]/ZIP Co de Phone Number [facility] [address] [place] [address] * (ABNORMAL) Blood gas panel, venous (02/24/2025 1:01 AM EDT) pH, Venous 7.43 7.32 - 7.43 LAB HEMATOLOGY METHOD 02/24/2025 1:19 AM EDT [facility] pCO2, Venous 40 37 - 52 mmHg LAB HEMATOLOGY METHOD 02/24/2025 1:19 AM EDT [facility] pO2, Venous 143(H) 25 - 40 mmHg LAB HEMATOLOGY METHOD 02/24/2025 1:19 AM EDT [facility] SO2, Measured, Venous 98(H) 65 - 80 % LAB HEMATOLOGY METHOD 02/24/2025 1:19 AM EDT [facility] Base Excess, Venous 1.9 -2.0 - 3.0 mmol/L LAB HEMATOLOGY METHOD 02/24/2025 1:19 AM EDT [facility] Bicarbonate, Calculated, Venous 27(H) 22 - 26 mmol/L LAB HEMATOLOGY METHOD 02/24/2025 1:19 AM EDT [facility] Hematocrit, Whole Blood 27.7(L) 34.0 - 45.0 % LAB HEMATOLOGY METHOD 02/24/2025 1:19 AM EDT [facility] Sodium, Whole Blood 132(L) 136 - 145 mmol/L LAB HEMATOLOGY METHOD 02/24/2025 1:19 AM EDT [facility] Potassium, Whole Blood 4.3 3.6 - 4.9 mmol/L LAB HEMATOLOGY METHOD 02/24/2025 1:19 AM EDT [facility] Chloride, Whole Blood 99 97 - 107 mmol/L LAB HEMATOLOGY METHOD 02/24/2025 1:19 AM EDT [facility] Glucose, Whole Blood 154(H) 74 - 99 mg/dL LAB HEMATOLOGY METHOD 02/24/2025 1:19 AM EDT [facility] Lactate, Venous, Whole Blood 0.9 0.5 - 2.2 mmol/L LAB HEMATOLOGY METHOD 02/24/2025 1:19 AM EDT [facility] Ionized Calcium, Whole Blood 4.2(L) 4.6 - 5.1 mg/dL LAB HEMATOLOGY METHOD 02/24/2025 1:19 AM EDT [facility] Blood Venous blood specimen / Unknown Venipuncture / Unknown 02/24/2025 1:01 AM EDT 02/24/2025 1:13 AM EDT Luda Ralph MD LAB BLOOD ORDERABLES Final R esult [facility] [address] [place] [address] * (ABNORMAL) POCT glucose meter (02/24/2025 1:00 [...] for testing. Comment 02/24/2025 1:02 AM EDT [facility] Deputy K 9 ID Daniela Mcbride 02/24/2025 1:02 AM EDT [facility] Device ID [id number] 02/24/2025 1:02 AM EDT [facility] Specimen Type POC Capillary 02/24/2025 1:02 AM EDT [facility] Blood Capillary blood specimen / Unknown 02/24/2025 1:00 AM EDT 02/24/2025 1:02 AM EDT Luda Ralph MD LAB POINT OF CARE TE ST DOCKED DEVICE UNSOLICITED RESULTS Final Result [facility] [address] [place] [address] * (ABNORMAL) POCT glucose meter (02/23/2025 5:07 PM EDT) Pathologist [facility] POCT Glucose 202(H) 74 - 99 mg/dL [...] Comment 02/23/2025 5:08 PM EDT [facility] Deputy K 9 ID Temi Mao 02/23/2025 5:08 PM EDT [facility] Device ID [id number] 02/23/2025 5:08 PM EDT [facility] Specimen Type POC Capillary 02/23/2025 5:08 PM EDT [facility] Blood Capillary blood specimen / Unknown 02/23/2025 5:07 PM EDT 02/23/2025 5:08 PM EDT us Luda Ralph MD LAB POINT OF CARE TE ST DOCKED DEVICE UNSOLICITED RESULTS Final Result Performing Organization Address City/[facility] Co de Phone Number [facility] [address] [place] [address] * Sodium, urine, random (02/23/2025 3:12 PM EDT) Sodium, Urine 31 mmol/L 02/23/2025 4:03 PM EDT [facility] Urine Urine specimen from urinary conduit / Unknown Non-blood Collection / Unknown 02/23/2025 3:12 PM EDT 02/23/2025 3:24 PM EDT us Luda Ralph MD LAB URINE ORDERABLES Final R esult Performing Organization Address [facility] Co de Phone Number [facility] [address] [place] [address] * Osmolality, urine (02/23/2025 3:12 PM EDT) Osmolality, Urine 408 50 - 1,200 mOsm/kg 02/23/2025 3:59 PM EDT [facility] Urine Urine specimen from urinary conduit / Unknown Non-blood Collection / Unknown 02/23/2025 3:12 PM EDT 02/23/2025 3:23 PM EDT us Luda Ralph MD LAB URINE ORDERABLES Final R esult Performing Organization Address City/[facility] Co de Phone Number [facility] [address] [place] [address] * Osmolality (02/23/2025 3:04 PM EDT) [facility] Osmolality, Serum 289 280 - 301 mOsm/Kg 02/23/2025 4:11 PM EDT [facility] Blood Venous blood specimen / Unknown Venipuncture / Unknown 02/23/2025 3:04 PM EDT 02/23/2025 3:13 PM EDT us Luda Ralph MD LAB BLOOD ORDERABLES Final R esult Performing Organization Address City/[facility]/[place] [address] * (ABNORMAL) Cystatin C (02/23/2025 3:04 PM EDT) [facility] Cystatin C 2.32(H) 0.61 - 0.95 mg/L 02/23/2025 3:44 PM EDT [facility] Blood Venous blood specimen / Unknown Venipuncture / Unknown 02/23/2025 3:04 PM EDT 02/23/2025 3:13 PM EDT us Luda Ralph MD LAB BLOOD ORDERABLES Final R esult Performing Organization Address [facility] [place] [address] * (ABNORMAL) Sodium (02/23/2025 3:04 PM EDT) [facility] Sodium, Plasma 129(L) 136 - 145 mmol/L 02/23/2025 3:44 PM EDT [facility] Blood Venous blood specimen / Unknown Venipuncture / Unknown 02/23/2025 3:04 PM EDT 02/23/2025 3:13 PM EDT us Luda Ralph MD LAB BLOOD ORDERABLES Final R esult Performing Organization Address [facility] [place] [address] * (ABNORMAL) POCT glucose meter (02/23/2025 11:43 AM EDT) [facility] POCT Glucose 222(H) 74 - 99 mg/dL [...] Comment 02/23/2025 11:44 AM EDT [facility] Deputy K 9 ID Temi Mao 02/23/2025 11:44 AM EDT [facility] Device ID [id number] 02/23/2025 11:44 AM EDT [facility] Specimen Type POC Capillary 02/23/2025 11:44 AM EDT [facility] Blood Capillary blood specimen / Unknown 02/23/2025 11:43 AM EDT 02/23/2025 11:44 AM EDT us Luda Ralph MD LAB POINT OF CARE TE ST DOCKED DEVICE UNSOLICITED RESULTS Final Result Performing Organization Address City/[facility]/ZIP Co de Phone Number [facility] [address] [place] [address] * Streptococcus pneumoniae and Legionella Urinary Antigen (02/23/2025 11:05 AM EDT) Legionella pneumophila serogroup 1 Antigen Result (Urine) Negative Negative 02/24/2025 7:01 AM EDT [facility] Streptococcus pneumoniae Antigen Result (Urine) Negative Negative 02/24/2025 7:01 AM EDT [facility] Urine Urine specimen obtained by clean catch procedure / Unknown Non-blood Collection / Unknown 02/23/2025 11:05 AM EDT 02/23/2025 11:16 AM EDT us Luda Ralph MD LAB MICROBIOLOGY - GENERAL O RDERABLES Final Result Performing Organization Address [facility]/ZIP Co de Phone Number [facility] [address] [place] [address] * SC CRITICAL CARE, E/M 30-74 MINUTES (02/23/2025 9:10 [...] Will optimize respiratory mechanics and volume status. Luda Ralph MD IN CLINIC/BEDSIDE ORDERABLES Final Result * Vancomycin, random (02/23/2025 8:34 AM EDT) Vancomycin, Random, Plasma 25.9 ug/mL 02/23/2025 9:20 AM EDT [facility] Blood Venous blood specimen / Unknown Venipuncture / Unknown 02/23/2025 8:34 AM EDT 02/23/2025 8:50 AM EDT Luda Ralph MD LAB BLOOD ORDERABLES Final R esult [facility] [address] [place] [address] * (ABNORMAL) Sodium (02/23/2025 8:34 AM EDT) Sodium, Plasma 127(L) 136 - 145 mmol/L 02/23/2025 9:20 AM EDT [facility] Blood Venous blood specimen / Unknown Venipuncture / Unknown 02/23/2025 8:34 AM EDT 02/23/2025 8:50 AM EDT us Luda Ralph MD LAB BLOOD ORDERABLES Final R esult [facility] [address] [place] [address] * (ABNORMAL) Blood gas panel, venous (02/23/2025 8:34 AM EDT) pH, Venous 7.39 7.32 - 7.43 LAB HEMATOLOGY METHOD 02/23/2025 8:52 AM EDT [facility] pCO2, Venous 44 37 - 52 mmHg LAB HEMATOLOGY METHOD 02/23/2025 8:52 AM EDT [facility] pO2, Venous 43(H) 25 - 40 mmHg LAB HEMATOLOGY METHOD 02/23/2025 8:52 AM EDT [facility] SO2, Measured, Venous 77 65 - 80 % LAB HEMATOLOGY METHOD 02/23/2025 8:52 AM EDT [facility] Base Excess, Venous 1.6 -2.0 - 3.0 mmol/L LAB HEMATOLOGY METHOD 02/23/2025 8:52 AM EDT [facility] Bicarbonate, Calculated, Venous 27(H) 22 - 26 mmol/L LAB HEMATOLOGY METHOD 02/23/2025 8:52 AM EDT [facility] Hematocrit, Whole Blood 27.4(L) 34.0 - 45.0 % LAB HEMATOLOGY METHOD 02/23/2025 8:52 AM EDT [facility] Sodium, Whole Blood 128(L) 136 - 145 mmol/L LAB HEMATOLOGY METHOD 02/23/2025 8:52 AM EDT [facility] Potassium, Whole Blood 4.7 3.6 - 4.9 mmol/L LAB HEMATOLOGY METHOD 02/23/2025 8:52 AM EDT [facility] Chloride, Whole Blood 93(L) 97 - 107 mmol/L LAB HEMATOLOGY METHOD 02/23/2025 8:52 AM EDT [facility] Glucose, Whole Blood 242(H) 74 - 99 mg/dL LAB HEMATOLOGY METHOD 02/23/2025 8:52 AM EDT [facility] Lactate, Venous, Whole Blood 1.1 0.5 - 2.2 mmol/L LAB HEMATOLOGY METHOD 02/23/2025 8:52 AM EDT [facility] Ionized Calcium, Whole Blood 4.6 4.6 - 5.1 mg/dL LAB HEMATOLOGY METHOD 02/23/2025 8:52 AM EDT [facility] Blood Venous blood specimen / Unknown Venipuncture / Unknown 02/23/2025 8:34 AM EDT 02/23/2025 8:50 AM EDT us Luda Ralph MD LAB BLOOD ORDERABLES Final R esult Performing Organization Address [facility] Co de Phone Number [facility] [address] [place] [address] * (ABNORMAL) POCT glucose meter (02/23/2025 5:13 AM EDT) POCT Glucose 255(H) 74 - 99 mg/dL 02/23/2025 5:14 AM EDT [facility] Comment:Accuracy of a [...] Comment 02/23/2025 5:14 AM EDT [facility] Deputy K 9 ID Daniela Mcbride 02/23/2025 5:14 AM EDT [facility] Device ID [id number] 02/23/2025 5:14 AM EDT [facility] Specimen Type POC Capillary 02/23/2025 5:14 AM EDT [facility] Blood Capillary blood specimen / Unknown 02/23/2025 5:13 AM EDT 02/23/2025 5:14 AM EDT us Luda Ralph MD LAB POINT OF CARE TE ST DOCKED DEVICE UNSOLICITED RESULTS Final Result Performing Organization Address City/[facility]/ZIP Co de Phone Number [facility] [address] [place] [address] * (ABNORMAL) POCT glucose meter (02/23/2025 2:11 AM EDT) Pathologist [facility] POCT Glucose 224(H) 74 - 99 mg/dL [...] Comment 02/23/2025 2:12 AM EDT [facility] Deputy K 9 ID Daniela Mcbride 02/23/2025 2:12 AM EDT [facility] Device ID [id number] 02/23/2025 2:12 AM EDT [facility] Specimen Type POC Capillary 02/23/2025 2:12 AM EDT [facility] Blood Capillary blood specimen / Unknown 02/23/2025 2:11 AM EDT 02/23/2025 2:12 AM EDT Luda Ralph MD LAB POINT OF CARE TE ST DOCKED DEVICE UNSOLICITED RESULTS Final Result Performing Organization Address City/State/[facility] Co de Phone Number [facility] [address] [place] [address] * (ABNORMAL) Methicillin Resistant Staphylococcus aureus (MRSA) by PCR (02/23/2025 2:05 AM EDT) [facility] Methicillin Resistant Staphylococcus aureus (MRSA) by PCR Detected( A) Not Detected 02/23/2025 4:19 AM EDT [facility] Swab Both anterior nares / Unknown Non-blood Collection / Unknown 02/23/2025 2:05 AM EDT 02/23/2025 3:06 AM EDT Narrative [facility] - 02/23/2025 4:19 AM EDT This [...] O RDERABLES Final Result Performing Organization Address [facility] Co de Phone Number [facility] [address] [place] [address] * (ABNORMAL) Nasopharyngeal Respiratory Panel (02/23/2025 2:05 AM EDT) Human Rhinovirus/Ent erovirus PCR Result Detected( A) Not Detected 02/23/2025 5:07 AM EDT [facility] Swab Nasopharyngeal structure / Unknown Non-blood Collection / Unknown 02/23/2025 2:05 AM EDT 02/23/2025 3:06 AM EDT Narrative [facility] - 02/23/2025 5:07 AM EDT This [...] Respiratory PCR Panel is performed using the [employer] instrument. This test is FDA approved for use with Nasopharyngeal swabs only. This test is used for clinical purposes. It should not be regarded as investigational or for research. The [facility] is certified under the Clinical Laboratory Improvement Amendments of 1988 (CLIA-88) as qualified to perform high complexity clinical laboratory testing. Luda Ralph MD LAB MICROBIOLOGY - GENERAL O RDERABLES Final Result Performing Organization Address [facility]/ZIP Co de Phone Number [facility] [address] [place] [address] * Anti Xa Level Low Molecular Weight (02/23/2025 2:04 AM EDT) Anti Xa Level Low Molecular Weight Heparin 1.12 <2.00 IU/mL LAB COAGULATION METHOD 02/23/2025 2:44 AM EDT [facility] Blood Venous blood specimen / Unknown Venipuncture / Unknown 02/23/2025 2:04 AM EDT 02/23/2025 2:24 AM EDT Narrative [facility] - 02/23/2025 2:44 AM EDT Therapeutic Range: LMWH enoxaparin 1mg/kg/dose, 12hrs - peak (3-5 hours after dose): 0.5 - 1.0 IU/mL LMWH enoxaparin 1.5mg/kg/dose, 24hrs - peak (3-5 hours after dose): 1.0 - 2.0 IU/mL LMWH enoxaparin prophylaxis: Not established Luda Ralph MD LAB BLOOD ORDERABLES Final R esult Performing Organization Address [facility] Co de Phone Number [facility] [address] [place] [address] * (ABNORMAL) Troponin T, High Sensitivity, 2 Hour, Plasma (02/23/2025 2:04 AM EDT) Troponin T, High Sensitivity, 2 Hour 37(H) <14 ng/L 02/23/2025 2:52 AM EDT [facility] Troponin Delta Interpretation Not Calculated 02/23/2025 2:52 AM EDT [facility] Comment:Specimen not collect ed within acceptable timeframe. Delta will not be calculated. Blood Venous blood specimen / Unknown Venipuncture / Unknown 02/23/2025 2:04 AM EDT 02/23/2025 2:24 AM EDT Luda Ralph MD LAB BLOOD ORDERABLES Final R esult Performing Organization Address City/[facility]/ZIP Co de Phone Number [facility] [address] [place] [address] * (ABNORMAL) Sodium (02/23/2025 2:04 AM EDT) Sodium, Plasma 125(L) 136 - 145 mmol/L 02/23/2025 2:45 AM EDT [facility] Blood Venous blood specimen / Unknown Venipuncture / Unknown 02/23/2025 2:04 AM EDT 02/23/2025 2:24 AM EDT us Luda Ralph MD LAB BLOOD ORDERABLES Final R esult [facility] [address] [place] [address] * (ABNORMAL) Blood gas panel, venous (02/23/2025 2:04 AM EDT) pH, Venous 7.39 7.32 - 7.43 LAB HEMATOLOGY METHOD 02/23/2025 2:29 AM EDT [facility] pCO2, Venous 43 37 - 52 mmHg LAB HEMATOLOGY METHOD 02/23/2025 2:29 AM EDT [facility] pO2, Venous 71(H) 25 - 40 mmHg LAB HEMATOLOGY METHOD 02/23/2025 2:29 AM EDT [facility] SO2, Measured, Venous 94(H) 65 - 80 % LAB HEMATOLOGY METHOD 02/23/2025 2:29 AM EDT [facility] Base Excess, Venous 0.7 -2.0 - 3.0 mmol/L LAB HEMATOLOGY METHOD 02/23/2025 2:29 AM EDT [facility] Bicarbonate, Calculated, Venous 26 22 - 26 mmol/L LAB HEMATOLOGY METHOD 02/23/2025 2:29 AM EDT [facility] Hematocrit, Whole Blood 26.1(L) 34.0 - 45.0 % LAB HEMATOLOGY METHOD 02/23/2025 2:29 AM EDT [facility] Sodium, Whole Blood 127(L) 136 - 145 mmol/L LAB HEMATOLOGY METHOD 02/23/2025 2:29 AM EDT [facility] Potassium, Whole Blood 4.7 3.6 - 4.9 mmol/L LAB HEMATOLOGY METHOD 02/23/2025 2:29 AM EDT [facility] Chloride, Whole Blood 93(L) 97 - 107 mmol/L LAB HEMATOLOGY METHOD 02/23/2025 2:29 AM EDT [facility] Glucose, Whole Blood 221(H) 74 - 99 mg/dL LAB HEMATOLOGY METHOD 02/23/2025 2:29 AM EDT [facility] Lactate, Venous, Whole Blood 0.9 0.5 - 2.2 mmol/L LAB HEMATOLOGY METHOD 02/23/2025 2:29 AM EDT [facility] Ionized Calcium, Whole Blood 3.7(L) 4.6 - 5.1 mg/dL LAB HEMATOLOGY METHOD 02/23/2025 2:29 AM EDT [facility] Blood Venous blood specimen / Unknown Venipuncture / Unknown 02/23/2025 2:04 AM EDT 02/23/2025 2:25 AM EDT us Luda Ralph MD LAB BLOOD ORDERABLES Final R esult Performing Organization Address City/[facility]/[place] [address] * Vancomycin, random (02/23/2025 12:05 AM EDT) Vancomycin, Random, Plasma <4.0 ug/mL 02/23/2025 12:44 AM EDT [facility] Blood Venous blood specimen / Unknown Venipuncture / Unknown 02/23/2025 12:05 AM EDT 02/23/2025 12:16 AM EDT us Luda Ralph MD LAB BLOOD ORDERABLES Final R esult Performing Organization Address City/[facility]/ZIP Co de Phone Number [facility] [address] [place] [address] * (ABNORMAL) Sodium (02/23/2025 12:05 AM EDT) Sodium, Plasma 127(L) 136 - 145 mmol/L 02/23/2025 12:44 AM EDT [facility] Blood Venous blood specimen / Unknown Venipuncture / Unknown 02/23/2025 12:05 AM EDT 02/23/2025 12:17 AM EDT us Luda Ralph MD LAB BLOOD ORDERABLES Final R esult Performing Organization Address City/[facility]/ZIP Co de Phone Number [facility] [address] [place] [address] * (ABNORMAL) Blood gas panel, venous (02/23/2025 12:05 AM EDT) pH, Venous 7.33 7.32 - 7.43 LAB HEMATOLOGY METHOD 02/23/2025 12:18 AM EDT [facility] pCO2, Venous 50 37 - 52 mmHg LAB HEMATOLOGY METHOD 02/23/2025 12:18 AM EDT [facility] pO2, Venous 60(H) 25 - 40 mmHg LAB HEMATOLOGY METHOD 02/23/2025 12:18 AM EDT [facility] SO2, Measured, Venous 89(H) 65 - 80 % LAB HEMATOLOGY METHOD 02/23/2025 12:18 AM EDT [facility] Base Excess, Venous 0.3 -2.0 - 3.0 mmol/L LAB HEMATOLOGY METHOD 02/23/2025 12:18 AM EDT [facility] Bicarbonate, Calculated, Venous 27(H) 22 - 26 mmol/L LAB HEMATOLOGY METHOD 02/23/2025 12:18 AM EDT [facility] Hematocrit, Whole Blood 28.9(L) 34.0 - 45.0 % LAB HEMATOLOGY METHOD 02/23/2025 12:18 AM EDT [facility] Sodium, Whole Blood 128(L) 136 - 145 mmol/L LAB HEMATOLOGY METHOD 02/23/2025 12:18 AM EDT [facility] Potassium, Whole Blood 4.7 3.6 - 4.9 mmol/L LAB HEMATOLOGY METHOD 02/23/2025 12:18 AM EDT [facility] Chloride, Whole Blood 93(L) 97 - 107 mmol/L LAB HEMATOLOGY METHOD 02/23/2025 12:18 AM EDT [facility] Glucose, Whole Blood 177(H) 74 - 99 mg/dL LAB HEMATOLOGY METHOD 02/23/2025 12:18 AM EDT [facility] Lactate, Venous, Whole Blood 1.7 0.5 - 2.2 mmol/L LAB HEMATOLOGY METHOD 02/23/2025 12:18 AM EDT [facility] Ionized Calcium, Whole Blood 4.4(L) 4.6 - 5.1 mg/dL LAB HEMATOLOGY METHOD 02/23/2025 12:18 AM EDT [facility] Blood Venous blood specimen / Unknown Venipuncture / Unknown 02/23/2025 12:05 AM EDT 02/23/2025 12:16 AM EDT Luda Ralph MD LAB BLOOD ORDERABLES Final R esult Performing Organization Address [facility]/ZIP Co de Phone Number [facility] [address] [place] [address] * (ABNORMAL) Troponin T, High Sensitivity, 0 Hour Plasma, Reflex to 2 Hour (02/23/2025 12:05 AM EDT) Troponin T, High Sensitivity, 0 Hour 40(H) <14 ng/L 02/23/2025 12:44 AM EDT [facility] Blood Venous blood specimen / Unknown Venipuncture / Unknown 02/23/2025 12:05 AM EDT 02/23/2025 12:17 AM EDT Luda Ralph MD LAB BLOOD ORDERABLES Final R esult Performing Organization Address [facility]/[place] [address] * (ABNORMAL) Phosphorus, Plasma (02/23/2025 12:05 AM EDT) Phosphorus, Plasma 2.4(L) 2.5 - 4.5 mg/dL 02/23/2025 12:44 AM EDT [facility] Blood Venous blood specimen / Unknown Venipuncture / Unknown 02/23/2025 12:05 AM EDT 02/23/2025 12:17 AM EDT Bobby Parra MD LAB BLOOD [place] [address] * (ABNORMAL) Magnesium, Plasma (02/23/2025 12:05 AM EDT) Magnesium, Plasma 2.5(H) 1.9 - 2.4 mg/dL 02/23/2025 12:44 AM EDT [facility] Blood Venous blood specimen / Unknown Venipuncture / Unknown 02/23/2025 12:05 AM EDT 02/23/2025 12:17 AM EDT us Bobby Parra MD LAB BLOOD ORDERABLES Final R esult [facility] [address] [place] [address] * (ABNORMAL) Basic Metabolic Panel, Plasma (02/23/2025 12:05 AM EDT) Glucose, Plasma 180(H) 74 - 99 mg/dL 02/23/2025 12:44 AM EDT [facility] BUN, Plasma 42(H) 8 - 23 mg/dL 02/23/2025 12:44 AM EDT [facility] Creatinine, Plasma 2.26(H) 0.60 - 1.10 mg/dL 02/23/2025 12:44 AM EDT [facility] BUN/Creatinine Ratio 19 02/23/2025 12:44 AM EDT [facility] Sodium, Plasma 127(L) 136 - 145 mmol/L 02/23/2025 12:44 AM EDT [facility] Potassium, Plasma 4.9 3.6 - 4.9 mmol/L 02/23/2025 12:44 AM EDT [facility] Chloride, Plasma 91(L) 97 - 107 mmol/L 02/23/2025 12:44 AM EDT [facility] CO2, Plasma 23 22 - 29 mmol/L 02/23/2025 12:44 AM EDT [facility] Anion Gap 13 6 - 16 mmol/L 02/23/2025 12:44 AM EDT [facility] Total Calcium, Plasma 9.0 8.9 - 10.2 mg/dL 02/23/2025 12:44 AM EDT [facility] eGFRcr 23.5 mL/min/1.7 3m*2 02/23/2025 12:44 AM EDT [facility] Comment:Reported eGFRcr in m L/min/1.73m2 is based the CKD-EPI 2020 equation that does not use a race coefficient. Blood Venous blood specimen / Unknown Venipuncture / Unknown 02/23/2025 12:05 AM EDT 02/23/2025 12:17 AM EDT Bobby Parra MD LAB BLOOD ORDERABLES Final R esult Performing Organization Address City/[facility]/ZIP Co de Phone Number [facility] [address] [place] [address] * (ABNORMAL) POCT glucose meter (02/23/2025 12:04 AM EDT) Pathologist [facility] POCT Glucose 189(H) 74 - 99 mg/dL 02/23/2025 12:06 AM EDT [facility] Comment:Accuracy of a glucos e result [...] Comment 02/23/2025 12:06 AM EDT [facility] Deputy K 9 ID Daniela Mcbride 02/23/2025 12:06 AM EDT [facility] Device ID [id number] 02/23/2025 12:06 AM EDT [facility] Specimen Type POC Capillary 02/23/2025 12:06 AM EDT [facility] Blood Capillary blood specimen / Unknown 02/23/2025 12:04 AM EDT 02/23/2025 12:06 AM EDT Luda Ralph MD LAB POINT OF CARE TE ST DOCKED DEVICE UNSOLICITED RESULTS Final Result Performing Organization Address City/[facility]/ZIP Co de Phone Number [facility] [address] [place] [address] * (ABNORMAL) Quantitative BAL/PAL/Bronch Wash Culture and Gram StainProtected Alveolar Lavage (02/23/2025 12:00 AM EDT) [facility] Culture [id number] CFU/mL Mixed upper respiratory jesus(A) 02/24/2025 12:09 PM EDT [facility] Comment:The organism value f or this result has been updated. These results have been appended to the previously preliminary verified report. Gram Stain Result Numerous Polymorphonuclear leukocytes(A) 02/24/2025 12:09 PM EDT [facility] Gram Stain Result Numerous Gram positive cocci in pairs(A) 02/24/2025 12:09 PM EDT [facility] Gram Stain Result Moderate Gram positive cocci in clusters(A) 02/24/2025 12:09 PM EDT [facility] Gram Stain Result Moderate Gram positive rods(A) 02/24/2025 12:09 PM EDT [facility] Protected Alveolar Lavage (Protected Alveolar Lavage) 02/23/2025 12:00 AM EDT 02/23/2025 1:17 AM EDT us Luda Ralph MD LAB MICROBIOLOGY - GENERAL O RDERABLES Final Result Performing Organization Address City/[facility] Co de Phone Number [facility] [address] [place] [address] * ECG Adult (02/22/2025 11:57 PM EDT) EKG DIAGNOSIS CLASS Abnormal MUSE ECG Ventricular Rate 81 BPM MUSE ECG Atrial Rate 81 BPM MUSE ECG SC Interval 204 ms MUSE ECG QRSD Interval 136 ms MUSE ECG QT Interval 428 ms MUSE ECG QTC Interval 497 ms MUSE ECG P [place] 58 degrees MUSE ECG R [place] -72 degrees MUSE ECG T Wave [place] 47 degrees MUSE ECG Diagnosis Normal sinus rhythm MUSE ECG Diagnosis Left axis deviation MUSE ECG Diagnosis Right bundle branch block MUSE ECG Diagnosis Low voltage chest leads MUSE ECG Diagnosis Abnormal ECG MUSE ECG Diagnosis Compared to last ECG MUSE ECG Diagnosis No significant change was found MUSE ECG Diagnosis Confirmed by Carson Multani ([id number]) on 02/23/2025 11:11:42 AM MUSE ECG 02/22/2025 11:5 7 PM EDT 02/23/2025 11:11 AM EDT us Luda Ralph MD ECG ORDERABLES Final Result Performing Organization Address City/[facility] Co de Phone Number MUSE ECG * (ABNORMAL) Procalcitonin (02/22/2025 10:03 PM EDT) Procalcitonin, Plasma 0.21(H) <0.09 ng/mL 02/22/2025 10:48 PM EDT [facility] Blood Venous blood specimen / Unknown Venipuncture / Unknown 02/22/2025 10:03 PM EDT 02/22/2025 10:11 PM EDT Narrative [facility] - 02/22/2025 10:48 PM EDT Procalcitonin [...] predict 28 day mortality risk. Please consult [email or web address] for more information. Test performed at [facility], Core Laboratory. us Luda Ralph MD LAB BLOOD ORDERABLES Final R Dac[employer] Softwareult Performing Organization Address City/[facility]/ZIP Co de Phone Number [facility] [address] [place] [address] * (ABNORMAL) N-Terminal Probnp (02/22/2025 10:03 PM EDT) N-Terminal, PROBNP, Plasma 1,542(H) 0 - 899 pg/mL 02/22/2025 10:48 PM EDT [facility] Blood Venous blood specimen / Unknown Venipuncture / Unknown 02/22/2025 10:03 PM EDT 02/22/2025 10:11 PM EDT us Bobby Parra MD LAB BLOOD ORDERABLES Final R esult Performing Organization Address City/[facility]/ZIP Co de Phone Number [facility] [address] [place] [address] * (ABNORMAL) Multi Drug Resistance Test (02/22/2025 10:02 PM EDT) Culture Methicillin-Resist ant Staphylococcus aureus(AA) 02/24/2025 6:58 AM EDT [facility] Swab (Nares and Samantha Rectal) Non-blood Collection / Unknown 02/22/2025 10:02 PM EDT 02/22/2025 10:16 PM EDT Narrative [facility] - 02/24/2025 6:58 AM EDT This test was developed and its performance characteristics determined by the [facility] Microbiology Laboratory. Although the media is FDA-approved, it is not FDA-approved for all specimen types submitted. The FDA has determined that such clearance or approval is not necessary. This test is used for surveillance purposes. It should not be regarded as investigational or for research. The [facility] is certified under the Clinical Laboratory Improvement Amendments of 1988 (CLIA-88) as qualified to perform high complexity clinical laboratory testing. Bobby Parra MD LAB MICROBIOLOGY - GENERAL O RDERABLES Final Result [facility] [address] [place] [address] * Sahara auris Surveillance by PCR (02/22/2025 10:02 PM EDT) Sahara auris PCR Result Not Detected Not Detected 02/24/2025 7:03 AM EDT [facility] Swab (Axilla and Groin) Non-blood Collection / Unknown 02/22/2025 10:02 PM EDT 02/22/2025 10:16 PM EDT Narrative [facility] - 02/24/2025 7:03 AM EDT This PCR assay was developed and its performance characteristics determined by [facility] as appropriate for clinical purposes. This assay has not been cleared or approved by the FDA, but is performed in a CLIA regulated laboratory that is qualified to perform high-complexity testing. Bobby LUTHER MICROBIOLOGY - GENERAL O RDERABLES Final Result [facility] [address] [place] [address] * (ABNORMAL) Fentanyl Urine Confirm (02/22/2025 10:01 PM EDT) Fentanyl 1(H) <1 ng/mL 02/24/2025 9:18 AM EDT [facility] Norfentanyl 2(H) <2 ng/mL 02/24/2025 9:18 AM EDT [facility] Urine Urine specimen obtained by clean catch procedure / Unknown Non-blood Collection / Unknown 02/22/2025 10:01 PM EDT 02/22/2025 10:11 PM EDT Narrative [facility] - 02/24/2025 9:18 AM EDT Drug analysis is confirmed by LC-MS/MS (LC Tandem Mass Spectrometry) on Urine specimens. This test was developed and its performance characteristics determined by [facility]. It has not been cleared or approved by the FDA. The laboratory is regulated under CLIA as qualified to perform high-complexity testing. This test is used for clinical purposes. Testing is performed at the [facility], Special Chemistry Laboratory. us Luda Morton MD LAB URINE ORDERABLES Final Result Performing Organization Address [facility] Co de Phone Number [facility] [address] [place] [address] * SEND HECTOR MESSAGE (02/22/2025 10:01 PM EDT) Urine Urine specimen obtained by clean catch procedure / Unknown Non-blood Collection / Unknown 02/22/2025 10:01 PM EDT 02/22/2025 10:14 PM EDT Bobby Parra MD LAB URINE ORDERABLES Final R esult Performing Organization Address City/[facility]/ZIP Co de Phone Number [facility] [address] [place] [address] * (ABNORMAL) Urine Culture (02/22/2025 10:01 PM EDT) Culture 100 CFU/mL Normal Urogenital Jesus(A) 02/24/2025 6:58 AM EDT [facility] Urine Urine specimen obtained by clean catch procedure / Unknown Non-blood Collection / Unknown 02/22/2025 10:01 PM EDT 02/22/2025 10:14 PM EDT Bobby Parra MD LAB MICROBIOLOGY - GENERAL O RDERABLES Final Result Performing Organization Address [facility] Co de Phone Number [facility] [address] [place] [address] * Urinalysis Microscopic Examination (02/22/2025 10:01 PM EDT) Urine Urine specimen obtained by clean catch procedure / Unknown Non-blood Collection / Unknown 02/22/2025 10:01 PM EDT 02/22/2025 10:11 PM EDT Bobby Parra MD LAB URINE ORDERABLES Final R esult Performing Organization Address [facility] Co de Phone Number [facility] [address] [place] [address] * Urine Salmon Panel (02/22/2025 10:01 PM EDT) Extra Sent for Culture 02/23/2025 12:01 AM EDT [facility] Urine Urine specimen obtained by clean catch procedure / Unknown Non-blood Collection / Unknown 02/22/2025 10:01 PM EDT 02/22/2025 10:14 PM EDT Bobby Parra MD LAB URINE ORDERABLES Final R esult Performing Organization Address City/[facility] Co de Phone Number [facility] [address] [place] [address] * (ABNORMAL) Urinalysis with reflex microscopic (Culture NOT Included) (02/22/2025 10:01 PM EDT) Color, Urine Red LAB URINALYSIS - AUTOMATED METHOD 02/22/2025 11:13 PM EDT [facility] Clarity, Urine Cloudy LAB URINALYSIS - AUTOMATED METHOD 02/22/2025 11:13 PM EDT [facility] Spec [place], Urine 1.010 1.005 - 1.030 LAB URINALYSIS - AUTOMATED METHOD 02/22/2025 11:13 PM EDT [facility] pH, Urine 6.5 5.0 - 8.0 LAB URINALYSIS - AUTOMATED METHOD 02/22/2025 11:13 PM EDT [facility] Protein, Urine >=300(A) Negative mg/dL LAB URINALYSIS - AUTOMATED METHOD 02/22/2025 11:13 PM EDT [facility] Glucose, Urine Negative Negative mg/dL LAB URINALYSIS - AUTOMATED METHOD 02/22/2025 11:13 PM EDT [facility] Ketones, Urine Negative Negative mg/dL LAB URINALYSIS - AUTOMATED METHOD 02/22/2025 11:13 PM EDT [facility] Blood, Urine Large(A) Negative LAB URINALYSIS - AUTOMATED METHOD 02/22/2025 11:13 PM EDT [facility] Bilirubin, Urine Small(A) Negative LAB URINALYSIS - AUTOMATED METHOD 02/22/2025 11:13 PM EDT [facility] Urobilinogen, Urine 0.2 0.2 to 1.0 mg/dL LAB URINALYSIS - AUTOMATED METHOD 02/22/2025 11:13 PM EDT [facility] Leukocytes, Urine Large(A) Negative LAB URINALYSIS - AUTOMATED METHOD 02/22/2025 11:13 PM EDT [facility] Nitrite, Urine Negative Negative LAB URINALYSIS - AUTOMATED METHOD 02/22/2025 11:13 PM EDT [facility] RBC, Urine >50(A) 0 to 3 /HPF LAB URINALYSIS - AUTOMATED METHOD 02/22/2025 11:13 PM EDT [facility] WBC, Urine >50(A) 0 to 5 /HPF LAB URINALYSIS - AUTOMATED METHOD 02/22/2025 11:13 PM EDT [facility] Squamous Epithelial Cells 0 - 2 0 to 5 /HPF LAB URINALYSIS - AUTOMATED METHOD 02/22/2025 11:13 PM EDT [facility] Hyaline Casts 0 - 2 0 to 5 /LPF LAB URINALYSIS - AUTOMATED METHOD 02/22/2025 11:13 PM EDT [facility] Bacteria, Urine Negative Negative LAB URINALYSIS - AUTOMATED METHOD 02/22/2025 11:13 PM EDT [facility] Urine Urine specimen obtained by clean catch procedure / Unknown Non-blood Collection / Unknown 02/22/2025 10:01 PM EDT 02/22/2025 10:11 PM EDT Narrative [facility] - 02/22/2025 11:13 PM EDT Urinalysis dipstick results may be inaccurate due to specimen color or an interfering substance in the specimen. us Bobby Parra MD LAB URINE ORDERABLES Final R esult [facility] [address] [place] [address] * Drug abuse screen (02/22/2025 10:01 PM EDT) Amphetamine Screen Urine Negative Cutoff: 500 ng/mL 02/23/2025 12:22 AM EDT [facility] Benzodiazepines Screen Urine Negative Cutoff: 200 ng/mL 02/23/2025 12:22 AM EDT [facility] Cannabinoid Screen Urine Negative Cutoff: 50 ng/mL 02/23/2025 12:22 AM EDT [facility] Cocaine Screen Urine Negative Cutoff: 300 ng/mL 02/23/2025 12:22 AM EDT [facility] Barbiturate Screen Urine Negative Cutoff: 200 ng/mL 02/23/2025 12:22 AM EDT [facility] Opiate Screen Urine Negative Cutoff: 300 ng/mL 02/23/2025 12:22 AM EDT [facility] Methadone Screen Urine Negative Cutoff: 300 ng/mL 02/23/2025 12:22 AM EDT [facility] Buprenorphine Screen Urine Negative Cutoff: 10 ng/mL 02/23/2025 12:22 AM EDT [facility] Fentanyl Screen Urine Presumptive positive. Confirmation by LC-MS/MS to follow. Cutoff: 1 ng/mL 02/23/2025 12:22 AM EDT [facility] Oxycodone Screen Urine Negative Cutoff: 100 ng/mL 02/23/2025 12:22 AM EDT [facility] Urine Urine specimen obtained by clean catch procedure / Unknown Non-blood Collection / Unknown 02/22/2025 10:01 PM EDT 02/22/2025 10:11 PM EDT us Luda Morton MD LAB URINE ORDERABLES Final Result Performing Organization Address City/[facility] Co de Phone Number [facility] [address] [place] [address] * (ABNORMAL) POCT glucose meter (02/22/2025 9:38 PM EDT) POCT Glucose 156(H) 74 - 99 mg/dL [...] for testing. Comment 02/22/2025 9:40 PM EDT [facility] Deputy K 9 ID Shiloh Friedman 02/23/20 9:40 PM EDT [facility] Device ID [id number] 02/22/2025 9:40 PM EDT [facility] Specimen Type POC Capillary 02/22/2025 9:40 PM EDT [facility] Blood Capillary blood specimen / Unknown 02/22/2025 9:38 PM EDT 02/22/2025 9:40 PM EDT us Luda Ralph MD LAB POINT OF CARE TE ST DOCKED DEVICE UNSOLICITED RESULTS Final Result Performing Organization Address City/[facility] Co de Phone Number [facility] [address] [place] [address] * (ABNORMAL) POCT arterial blood gas gem (02/22/2025 9:05 PM EDT) pH, Arterial 7.45(H) 7.31 - 7.42 02/22/2025 9:06 PM EDT [facility] pCO2, Arterial 37 35 - 48 mm Hg 02/22/2025 9:06 PM [facility]T [facility] pO2, Arterial 86 >80 mm Hg 02/22/2025 9:06 PM [facility]T [facility] SO2, Arterial 98 94 - 98 % 02/22/2025 9:06 PM [facility] FIO2 60.0 % 02/22/2025 9:06 PM [facility] Base Excess, Arterial 1.7 -2 - 3 mmol/L 02/22/2025 9:06 PM [facility] HCO3, Arterial 25.7 22 - 26 mmol/L 02/22/2025 9:06 PM [facility] Total Hemoglobin, Arterial, Whole Blood 9.1(L) 11.2 - 15.7 g/dL 02/22/2025 9:06 PM [facility] Hematocrit, Arterial 27.0(L) 34.0 - 45.0 % 02/22/2025 9:06 PM [facility] Sodium, Arterial 125(L) 136 - 145 mmol/L 02/22/2025 9:06 [facility] Potassium, Arterial 4.9 3.6 - 4.9 mmol/L 02/22/2025 9:06 PM [facility] Comment:Hemolyzed, result ma y be falsely increased. Chloride, Whole Blood 95(L) 97 - 107 mmol/L 02/22/2025 9:06 PM [facility] Glucose, Arterial 116(H) 74 - 99 mg/dL 02/22/2025 9:06 PM [facility] Ionized Calcium, Arterial 4.8 4.6 - 5.1 mg/dL 02/22/2025 9:06 PM [facility] Lactate, Arterial 0.8 0.5 - 1.6 mmol/L 02/22/2025 9:06 PM [facility] Body Temperature 37.0 Celsius 02/22/2025 9:06 PM [facility] pH, Temp Corrected, Arterial 7.45(H) 7.31 - 7.42 02/22/2025 9:06 PM [facility] pCO2, Temp Corrected, Arterial 37 35 - 48 mm Hg 02/22/2025 9:06 PM [facility] pO2, Temp Corrected, Arterial 86 >80 mm Hg 02/22/2025 9:06 PM [facility] Deputy K 9 ID PraveenSlim 02/22/2025 9:06 PM [facility] Blood, Arterial Whole blood specimen / Unknown 02/22/2025 9:05 PM EDT 02/22/2025 9:06 PM EDT Luda Ralph MD LAB POINT OF CARE TE ST DOCKED DEVICE UNSOLICITED RESULTS Final Result Performing Organization Address City/[facility]/ZIP Co de Phone Number [facility] [address] [place] [address] * Blood Culture (Aerobic/Anaerobet Set) (02/22/2025 8:55 PM EDT) Culture No growth at day 5 02/27/2025 10:01 PM EDT [facility] Blood Structure of right hand / Unknown Venipuncture / Unknown 02/22/2025 8:55 PM EDT 02/22/2025 9:29 PM EDT Narrative [facility] - 02/27/2025 10:01 PM EDT Low blood volume submitted, results may be compromised us Luda Morton MD LAB MICROBIOLOGY - GENERAL ORDERABLES Final Result Performing Organization Address [facility] Co de Phone Number [facility] [address] [place] [address] * Ionized calcium, serum (02/22/2025 8:36 PM EDT) Ionized Calcium, Serum 4.8 4.6 - 5.3 mg/dL LAB HEMATOLOGY METHOD 02/22/2025 9:42 PM EDT [facility] Blood Venous blood specimen / Unknown Venipuncture / Unknown 02/22/2025 8:36 PM EDT 02/22/2025 8:53 PM EDT us Bobby Parra MD LAB BLOOD ORDERABLES Final R esult Performing Organization Address City/[facility]/ZIP Co de Phone Number [facility] [address] [place] [address] * (ABNORMAL) CBC W/O Differential (02/22/2025 8:36 PM EDT) WBC Count 7.98 3.70 - 10.30 10*3/uL LAB HEMATOLOGY METHOD 02/22/2025 8:44 PM EDT [facility] RBC Count 3.52(L) 3.90 - 5.20 10*6/uL LAB HEMATOLOGY METHOD 02/22/2025 8:44 PM EDT [facility] HGB 9.2(L) 11.2 - 15.7 g/dL LAB HEMATOLOGY METHOD 02/22/2025 8:44 PM EDT [facility] HCT 28.5(L) 34.0 - 45.0 % LAB HEMATOLOGY METHOD 02/22/2025 8:44 PM EDT [facility] Platelet Count 329 155 - 369 10*3/uL LAB HEMATOLOGY METHOD 02/22/2025 8:44 PM EDT [facility] MCV 81 79 - 98 fL LAB HEMATOLOGY METHOD 02/22/2025 8:44 PM EDT [facility] MCH 26.1 26.0 - 32.0 pg LAB HEMATOLOGY METHOD 02/22/2025 8:44 PM EDT [facility] MCHC 32.3 30.7 - 35.5 g/dL LAB HEMATOLOGY METHOD 02/22/2025 8:44 PM EDT [facility] RDW 14.6(H) 11.5 - 14.5 % LAB HEMATOLOGY METHOD 02/22/2025 8:44 PM EDT [facility] MPV 9.5 8.8 - 12.5 fL LAB HEMATOLOGY METHOD 02/22/2025 8:44 PM EDT [facility] nRBC 0.0 <=0.0 per 100 WBCs LAB HEMATOLOGY METHOD 02/22/2025 8:44 PM EDT [facility] Blood Venous blood specimen / Unknown Venipuncture / Unknown 02/22/2025 8:36 PM EDT 02/22/2025 8:40 PM EDT us Bobby Parra MD LAB BLOOD ORDERABLES Final R esult [facility] [address] [place] [address] * (ABNORMAL) Blood gas, venous (02/22/2025 8:13 PM EDT) pH, Venous 7.33 7.32 - 7.43 LAB HEMATOLOGY METHOD 02/22/2025 8:17 PM EDT [facility] pCO2, Venous 49 37 - 52 mmHg LAB HEMATOLOGY METHOD 02/22/2025 8:17 PM EDT [facility] pO2, Venous 27 25 - 40 mmHg LAB HEMATOLOGY METHOD 02/22/2025 8:17 PM EDT [facility] SO2, Measured, Venous 49(L) 65 - 80 % LAB HEMATOLOGY METHOD 02/22/2025 8:17 PM EDT [facility] Base Excess, Venous -0.1 -2.0 - 3.0 mmol/L LAB HEMATOLOGY METHOD 02/22/2025 8:17 PM EDT [facility] Bicarbonate, Calculated, Venous 26 22 - 26 mmol/L LAB HEMATOLOGY METHOD 02/22/2025 8:17 PM EDT [facility] Hematocrit, Whole Blood 27.0(L) 34.0 - 45.0 % LAB HEMATOLOGY METHOD 02/22/2025 8:17 PM EDT [facility] Sodium, Whole Blood 128(L) 136 - 145 mmol/L LAB HEMATOLOGY METHOD 02/22/2025 8:17 PM EDT [facility] Potassium, Whole Blood 5.3(H) 3.6 - 4.9 mmol/L LAB HEMATOLOGY METHOD 02/22/2025 8:17 PM EDT [facility] Chloride, Whole Blood 96(L) 97 - 107 mmol/L LAB HEMATOLOGY METHOD 02/22/2025 8:17 PM EDT [facility] Glucose, Whole Blood 106(H) 74 - 99 mg/dL LAB HEMATOLOGY METHOD 02/22/2025 8:17 PM EDT [facility] Lactate, Venous, Whole Blood 1.0 0.5 - 2.2 mmol/L LAB HEMATOLOGY METHOD 02/22/2025 8:17 PM EDT [facility] Ionized Calcium, Whole Blood 4.3(L) 4.6 - 5.1 mg/dL LAB HEMATOLOGY METHOD 02/22/2025 8:17 PM EDT [facility] Blood Venous blood specimen / Unknown Venipuncture / Unknown 02/22/2025 8:13 PM EDT 02/22/2025 8:16 PM EDT us Luda Morton MD LAB BLOOD ORDERABLES Final Result [facility] [address] [place] [address] * EKG now - STAT (adult) (02/22/2025 8:10 PM EDT) EKG DIAGNOSIS CLASS Abnormal MUSE ECG Ventricular Rate 74 BPM MUSE ECG Atrial Rate 74 BPM MUSE ECG SC Interval 200 ms MUSE ECG QRSD Interval 136 ms MUSE ECG QT Interval 434 ms MUSE ECG QTC Interval 481 ms MUSE ECG P [place] 59 degrees MUSE ECG R [place] -84 degrees MUSE ECG T Wave [place] 48 degrees MUSE ECG Diagnosis Normal sinus rhythm MUSE ECG Diagnosis Left axis deviation MUSE ECG Diagnosis Right bundle branch block MUSE ECG Diagnosis Abnormal ECG MUSE ECG Diagnosis Compared to last ECG MUSE ECG Diagnosis No significant change was found MUSE ECG Diagnosis Confirmed by Carson Multani ([id number]) on 02/23/2025 10:45:41 AM MUSE ECG 02/22/2025 8:10 PM EDT 02/23/2025 10:45 AM EDT Luda Morton MD ECG ORDERABLES Final Resul t Performing Organization Address [facility] Co de Phone Number MUSE ECG * XR Chest 1 View [...] 9.2(H) <5.7 % 02/23/2025 1:40 PM EDT [facility] Blood Venous blood specimen / Unknown Venipuncture / Unknown 02/22/2025 6:41 PM EDT 02/22/2025 6:47 PM EDT Narrative [facility] - 02/23/2025 1:40 PM EDT HA1C Interpretive Data: Diagnosis of Diabetes: Diabetic > or = 6.5% Pre-diabetic 5.7 to 6.4% Non-diabetic < or = 5.6% Glycemic Targets for Type I and Type II Diabetics: Non- Adults <7.0% Adults <6.0% Children and Adolescents <7.5% Source: [place] [employer]. Standards of medical care in diabetes,2017. Diabetes Care.2017:40 (suppl 1):S1-S135. us Bobby Parra MD LAB BLOOD ORDERABLES Final R esult Performing Organization Address City/[facility]/ZIP Co de Phone Number [facility] [address] [place] [address] * (ABNORMAL) BNP (02/22/2025 6:41 PM EDT) N-Terminal, PROBNP, Plasma 1,679(H) 0 - 899 pg/mL 02/22/2025 8:39 PM EDT [facility] Blood Venous blood specimen / Unknown Venipuncture / Unknown 02/22/2025 6:41 PM EDT 02/22/2025 6:47 PM EDT us Luda Morton MD LAB BLOOD ORDERABLES Final Result Performing Organization Address City/[facility]/ZIP Co de Phone Number [facility] [address] [place] [address] * Free T4, Plasma (02/22/2025 6:41 PM EDT) Free T4, Plasma 1.3 0.8 - 1.7 ng/dL 02/22/2025 7:24 PM EDT [facility] Blood Venous blood specimen / Unknown Venipuncture / Unknown 02/22/2025 6:41 PM EDT 02/22/2025 6:47 PM EDT us Luda Morton MD LAB BLOOD ORDERABLES Final Result Performing Organization Address [facility]/ZIP Co de Phone Number [facility] [address] [place] [address] * Thyroid Stimulating Hormone, Plasma (02/22/2025 6:41 PM EDT) Thyroid Stimulating Hormone, Plasma 1.03 0.40 - 4.20 uIU/mL 02/22/2025 7:24 PM EDT [facility] Blood Venous blood specimen / Unknown Venipuncture / Unknown 02/22/2025 6:41 PM EDT 02/22/2025 6:47 PM EDT Luda Morton MD LAB BLOOD ORDERABLES Final Result Performing Organization Address [facility] Co de Phone Number [facility] [address] [place] [address] * Ethyl Alcohol Plasma (02/22/2025 6:41 PM EDT) Pathologist [facility] Ethanol Plasma <10 <10 mg/dL 02/22/2025 8:13 PM EDT [facility] Blood Venous blood specimen / Unknown Venipuncture / Unknown 02/22/2025 6:41 PM EDT 02/22/2025 8:00 PM EDT Narrative [facility] - 02/22/2025 8:13 PM EDT Enzymatic Assay: Performed on Hector Rufus. us Luda Morton MD LAB BLOOD ORDERABLES Final Result Performing Organization Address City/[facility]/ZIP Co de Phone Number [facility] [address] [place] [address] * (ABNORMAL) CBC w/diff (02/22/2025 6:41 PM EDT) WBC Count 9.69 3.70 - 10.30 10*3/uL LAB HEMATOLOGY METHOD 02/22/2025 6:54 PM EDT [facility] RBC Count 3.62(L) 3.90 - 5.20 10*6/uL LAB HEMATOLOGY METHOD 02/22/2025 6:54 PM EDT [facility] HGB 9.7(L) 11.2 - 15.7 g/dL LAB HEMATOLOGY METHOD 02/22/2025 6:54 PM EDT [facility] HCT 29.8(L) 34.0 - 45.0 % LAB HEMATOLOGY METHOD 02/22/2025 6:54 PM EDT [facility] Platelet Count 306 155 - 369 10*3/uL LAB HEMATOLOGY METHOD 02/22/2025 6:54 PM EDT [facility] MCV 82 79 - 98 fL LAB HEMATOLOGY METHOD 02/22/2025 6:54 PM EDT [facility] MCH 26.8 26.0 - 32.0 pg LAB HEMATOLOGY METHOD 02/22/2025 6:54 PM EDT [facility] MCHC 32.6 30.7 - 35.5 g/dL LAB HEMATOLOGY METHOD 02/22/2025 6:54 PM EDT [facility] RDW 14.6(H) 11.5 - 14.5 % LAB HEMATOLOGY METHOD 02/22/2025 6:54 PM EDT [facility] MPV 9.4 8.8 - 12.5 fL LAB HEMATOLOGY METHOD 02/22/2025 6:54 PM EDT [facility] nRBC 0.0 <=0.0 per 100 WBCs LAB HEMATOLOGY METHOD 02/22/2025 6:54 PM EDT [facility] Differential Type Automated LAB HEMATOLOGY METHOD 02/22/2025 6:54 PM EDT [facility] Neutrophils % 69 % LAB HEMATOLOGY METHOD 02/22/2025 6:54 PM EDT [facility] Lymphocytes % 13 % LAB HEMATOLOGY METHOD 02/22/2025 6:54 PM EDT [facility] Monocytes % 13 % LAB HEMATOLOGY METHOD 02/22/2025 6:54 PM EDT [facility] Eosinophils % 4 % LAB HEMATOLOGY METHOD 02/22/2025 6:54 PM EDT [facility] Basophils % 0 % LAB HEMATOLOGY METHOD 02/22/2025 6:54 PM EDT [facility] Immature Granulocytes % 1 % LAB HEMATOLOGY METHOD 02/22/2025 6:54 PM EDT [facility] Neutrophils Absolute 6.66(H) 1.60 - 6.10 10*3/uL LAB HEMATOLOGY METHOD 02/22/2025 6:54 PM EDT [facility] Lymphocytes Absolute 1.29 1.20 - 3.90 10*3/uL LAB HEMATOLOGY METHOD 02/22/2025 6:54 PM EDT [facility] Monocytes Absolute 1.27(H) 0.30 - 0.90 10*3/uL LAB HEMATOLOGY METHOD 02/22/2025 6:54 PM EDT [facility] Eosinophils Absolute 0.38 0.00 - 0.50 10*3/uL LAB HEMATOLOGY METHOD 02/22/2025 6:54 PM EDT [facility] Basophils Absolute 0.03 0.00 - 0.10 10*3/uL LAB HEMATOLOGY METHOD 02/22/2025 6:54 PM EDT [facility] Immature Granulocytes Absolute 0.06 0.00 - 0.06 10*3/uL LAB HEMATOLOGY METHOD 02/22/2025 6:54 PM EDT [facility] Blood Venous blood specimen / Unknown Venipuncture / Unknown 02/22/2025 6:41 PM EDT 02/22/2025 6:47 PM EDT Narrative [facility] - 02/22/2025 6:54 PM EDT Therapeutic decision making should be based on absolute values, rather than percentages. us Luda Morton MD LAB BLOOD ORDERABLES Final Result [facility] [address] [place] [address] * (ABNORMAL) CMP (02/22/2025 6:41 PM EDT) Glucose, Plasma 144(H) 74 - 99 mg/dL 02/22/2025 7:24 PM EDT [facility] BUN, Plasma 42(H) 8 - 23 mg/dL 02/22/2025 7:24 PM EDT [facility] Creatinine, Plasma 2.39(H) 0.60 - 1.10 mg/dL 02/22/2025 7:24 PM EDT [facility] BUN/Creatinine Ratio 18 02/22/2025 7:24 PM EDT [facility] Sodium, Plasma 125(L) 136 - 145 mmol/L 02/22/2025 7:24 PM EDT [facility] Potassium, Plasma 4.6 3.6 - 4.9 mmol/L 02/22/2025 7:24 PM EDT [facility] Chloride, Plasma 89(L) 97 - 107 mmol/L 02/22/2025 7:24 PM EDT [facility] CO2, Plasma 26 22 - 29 mmol/L 02/22/2025 7:24 PM EDT [facility] Anion Gap 10 6 - 16 mmol/L 02/22/2025 7:24 PM EDT [facility] Total Calcium, Plasma 9.0 8.9 - 10.2 mg/dL 02/22/2025 7:24 PM EDT [facility] Total Protein 7.3 6.3 - 7.9 g/dL 02/22/2025 7:24 PM EDT [facility] Albumin, Plasma 3.6 3.5 - 5.2 g/dL 02/22/2025 7:24 PM EDT [facility] AST, Plasma 13 10 - 35 U/L 02/22/2025 7:24 PM EDT [facility] ALT, Plasma 19 10 - 35 U/L 02/22/2025 7:24 PM EDT [facility] Alkaline Phosphatase, Plasma 144(H) 46 - 142 U/L 02/22/2025 7:24 PM EDT [facility] Total Bilirubin, Plasma <0.2(L) 0.2 - 1.1 mg/dL 02/22/2025 7:24 PM EDT [facility] eGFRcr 22.0 mL/min/1.7 3m*2 02/22/2025 7:24 PM EDT [facility] Comment:Reported eGFRcr in m L/min/1.73m2 is based the CKD-EPI 2020 equation that does not use a race coefficient. Blood Venous blood specimen / Unknown Venipuncture / Unknown 02/22/2025 6:41 PM EDT 02/22/2025 6:47 PM EDT us Luda Morton MD LAB BLOOD ORDERABLES Final Result [facility] [address] [place] [address] * (ABNORMAL) POCT venous blood gas gem (02/22/2025 6:37 PM EDT) pH, Venous 7.28(L) 7.32 - 7.43 02/22/2025 6:38 PM EDT [facility] pCO2, Venous 60(HH) 37 - 52 mm Hg 02/22/2025 6:38 PM EDT [facility] pO2, Venous 41(H) 25 - 40 mm Hg 02/22/2025 6:38 PM EDT [facility] SO2, Venous 72 65 - 80 % 02/22/2025 6:38 PM EDT [facility] Base Excess/Deficit, Venous 0.8 -2 - 3 mmol/L 02/22/2025 6:38 PM EDT [facility] HCO3, Venous 28.2(H) 22 - 26 mmol/L 02/22/2025 6:38 PM EDT [facility] Hemoglobin, Venous 9.2(L) 11.2 - 15.7 g/dL 02/22/2025 6:38 PM EDT [facility] Hematocrit, Venous 28.0(L) 34.0 - 45.0 % 02/22/2025 6:38 PM EDT [facility] Sodium, Venous 126(L) 136 - 145 mmol/L 02/22/2025 6:38 PM EDT [facility] Potassium, Venous 4.6 3.6 - 4.9 mmol/L 02/22/2025 6:38 PM EDT [facility] Comment:Hemolyzed, result ma y be falsely increased. POCT Chloride, Venous 94(L) 97 - 107 mmol/L 02/22/2025 6:38 PM EDT [facility] Glucose, Venous 139(H) 74 - 99 mg/dL 02/22/2025 6:38 PM EDT [facility] Ionized Calcium, Venous 4.9 4.6 - 5.1 mg/dL 02/22/2025 6:38 PM EDT [facility] Lactate, Venous 0.6 0.5 - 2.2 mmol/L 02/22/2025 6:38 PM EDT [facility] Body Temperature 37.0 Celsius 02/22/2025 6:38 PM [facility]T [facility] pH, Temp Corrected, Venous 7.28(L) 7.32 - 7.43 02/22/2025 6:38 PM [facility]T [facility] pCO2, Temp Corrected, Venous 60(HH) 37 - 52 mm Hg 02/22/2025 6:38 PM [facility]T [facility] pO2, Temp Corrected, Venous 41(H) 25 - 40 mm Hg 02/22/2025 6:38 PM EDT [facility] Deputy K 9 ID Jaoo Jackson 02/22/2025 6:38 PM EDT [facility] Blood, Venous Whole blood specimen / Unknown 02/22/2025 6:37 PM EDT 02/22/2025 6:38 PM EDT Generic Provider Poct LAB POINT OF CARE TEST DOCKED DEVICE UNSOLICITED RESULTS Final Result [facility] [address] [place] [address] * (ABNORMAL) POCT glucose meter (02/22/2025 6:17 PM EDT) [facility] Signature POCT Glucose 150(H) 74 - 99 mg/dL 02/22/2025 6:19 PM EDT [facility] Comment:Accuracy of a [...] 02/22/2025 6:19 PM EDT [facility] Deputy K 9 ID Tracy Vasques 02/22/2025 6:19 PM EDT [facility] Device ID [id number] 02/22/2025 6:19 PM EDT [facility] Specimen Type POC Capillary 02/22/2025 6:19 PM EDT [facility] Blood Capillary blood specimen / Unknown 02/22/2025 6:17 PM EDT 02/22/2025 6:19 PM EDT Generic Provider Poct LAB POINT OF CARE TEST DOCKED DEVICE UNSOLICITED RESULTS Final Result [facility] [address] [place] [id number] * INTUBATION (02/22/2025 6:13 PM EDT) Narrative [...] Appropriate position Post-procedure details: Procedure completion: Tolerated Luda Morton MD IN CLINIC/BEDSIDE ORDERABLE S Final Result documented in this encounter Visit Diagnoses Diagnosis Sepsis (CMS/HCC)- Primary [place] coma scale total score 9-12, at arrival [...] on Tue02/25/25 at 2100, Until Discontinued, Routine Given 03/01/2025 [...] Mouth/Throat, 4 times daily PRN, Starting on Tue02/24/25 at 1954, Until 03/02/25 at 1304, Routine, [...] Titrated, Starting on Tue02/23/25 at 0045, Until 02/24/25 at 1644, Routine Rate/Dose Verify 02/24/2025 1:00 [...] 15 Units, Subcutaneous, Nightly, First dose on Tue02/24/25 at 2100, Until Discontinued, Routine Given 02/26/2025 [...] nightly (2100 & 0300), First dose on 02/24/25 at 2100, Until [...] 500 mL, Intravenous, Once, 1 dose, On 02/23/25 at 0200, Administer over 2 Hours, Routine [...] Until 03/02/25 at 1304, Routine, vomiting, nausea Given 02/27/2025 8:49 PM EDT 4 mg ondansetron ODT (Zofran-ODT) disintegrating tablet 4 mg 4 mg, Oral, Once, 1 dose, On Tue02/25/25 at 1645, Routine Given 02/25/2025 4:40 PM EDT 4 mg ondansetron ODT (Zofran-ODT) disintegrating tablet 4 mg 4 mg, Oral, Every 6 hours PRN, Starting on Tue02/26/25 at 1128, Until 03/02/25 at 1304, Routine, nausea, vomiting Given 02/26/2025 11:34 AM EDT 4 mg oxyCODONE (Roxicodone) immediate release tablet 5 mg 5 mg, Nasogastric, Every 6 hours PRN, Starting on Tue02/23/25 at 1449, Until 03/02/25 at 1304, Routine, moderate pain Given 03/02/2025 [...] Gerry Ambriz) 2109 (Given - Provider: Aleyda Holley, JIMI) baclofen (Lioresal) tablet 10 mg 10 mg, Oral, 3 times daily, First dose on Tue02/25/25 at 1600, Until Discontinued, Routine 1100 (Given - Provider: Gayle Light RN)175 (Given - Provider: Gayle Light RN - Comment: pt asleep)2044 (Given - Provider: Gerry Ambriz) 0851 (Given - Provider: Yves Roberts)161 (Given - Provider: Gayle Light, JIMI)2109 (Given - Provider: Aleyda Holley, JIMI) 0822 (Given - Provider: Gayle Light, JIMI) carvedilol (Coreg) tablet 25 mg 25 mg, Oral, 2 times daily, First dose (after last modification) on Tue02/26/25 at 2100, Until Discontinued, Routine 1240 (Given - Provider: Gayle Light RN)2044 (Given - Provider: Gerry Ambriz) 0851 (Given - Provider: Yves Roberts)2109 (Given - Provider: Aleyda Holley RN) 0823 (Given - Provider: Gayle Light, JIMI) cefTRIAXone (Rocephin) 2 g in sodium chloride [...] Provider: Gerry Ambriz)1333 (Given - Provider: Gayle Light, JIMI)2109 (Given - Provider: Aleyda Holley, JIMI) 0544 (Given - Provider: Aleyda Holley, JIMI) insulin glargine-yfgn 100 UNIT/ML injection 30 Units 30 Units, Subcutaneous, Nightly, First dose (after last modification) on Tue02/27/25 at 2100, Until Discontinued, Routine 2043 (Given - Provider: Gerry Ambriz) 2109 (Given - Provider: Aleyda Holley, JIMI) insulin lispro (Admelog) 100 units/mL injection - Correction - Standard Dose 0-5 Units, Subcutaneous, 3 times daily with meals, First dose on 02/24/25 at 1745, Until Discontinued, Routine 1104 (Not Given - Provider: Gayle Light RN - Reason: Patient in procedure)1354 (Given - Provider: Gayle Light RN)1754 (Given - Provider: Gayle Light RN) 0852 (Given - Provider: Yves Roberts)1330 (Given - Provider: Gayle Light, JIMI)1835 (Given - Provider: Gayle Light, JIMI) 0822 (Given - Provider: Gayle Light, JIMI)1230 (Canceled Entry - Provider: Automatic Discharge Provider - Comment: Automatically canceled at discontinue of medication order) insulin lispro (Admelog) injection - Correction - Nighttime Dose 0-3 Units, Subcutaneous, 2 times nightly (2100 & 0300), First dose on 02/24/25 at 2100, Until Discontinued, Routine 215 (Not Given - Provider: Gerry Ambriz - Reason: Order parameters not met)2106 (Not Given - Provider: Gerry Ambriz - Reason: Order parameters not met) 246 (Not Given - Provider: Gerry Ambriz - Reason: Order parameters not met)2110 (Not Given - Provider: Aleyda Kishan, RN - Reason: Order parameters not met) 0312 (Not Given - Provider: Aleyda Holley RN [...] 0824 (Given - Provider: Gayle Light, JIMI) mometasone-formotero l (Dulera 100) 100-5 MCG/ACT inhaler 2 puff 2 puff, Inhalation, 2 times daily, First dose on Tue02/25/25 at 1315, Until Discontinued, Routine 1104 (Given - Provider: Gayle Light RN)2043 (Given - Provider: Gerry Ambriz) 0852 (Given - Provider: Yves Roberts)211 (Given - Provider: Aleyda Holley, JIMI) 0824 (Given - Provider: Gayle Light, JIMI) pantoprazole (Protonix) EC tablet 40 mg 40 mg, Oral, Daily, First dose on Tue02/25/25 at 1315, Until Discontinued, Routine 1101 (Given - Provider: Gayle Light RN) 0850 (Given - Provider: Yves Roberts) 0824 (Given - Provider: Gayle Light, JIMI) pregabalin (Lyrica) capsule 50 mg 50 mg, Oral, Daily, First dose (after last modification) on Tue02/26/25 at 0900, Until Discontinued, Routine 1102 (Given - Provider: Gayle Light RN) 0850 (Given - Provider: Yves Roberts) 0823 (Given - Provider: Gayle Light, JIMI) PRN Medication Order 02/28/2025 03/01/2025 03/02/2025 acetaminophen (Tylenol) tablet 650 mg 650 mg, Oral, Every 4 hours PRN, Starting on Tue02/25/25 at 2124, Until 03/02/25 at 1304, Routine, fever, mild pain, for temperature > 38.5 0823 (Given - Provider: Gayle Light RN) benzocaine (Orajel) 10 % mucosal gel 1 Application Mouth/Throat, 4 times daily PRN, Starting on Tue02/24/25 at 1955, Until 03/02/25 at 1304, Routine, [...] Until Tue03/02/25 at 1304, Routine, nausea, vomiting oxyCODONE (Roxicodone) immediate release tablet 5 mg 5 mg, Nasogastric, Every 6 hours PRN, Starting on Tue02/23/25 at 1449, Until Tue03/02/25 at 1304, Routine, moderate pain 0310 (Given - Provider: Gerry Ambriz)1805 (Given - Provider: Gayle Light, JIMI) 0009 (Given - Provider: Gerry Ambriz)0851 (Given - Provider: Yves Roberts)1610 (Given - Provider: Gayle Light, JIMI) 0600 (Given - Provider: Aleyda Holley RN) sodium chloride 0.9 % flush 3 mL(Linked Group 4) 3 mL, Intravenous, As needed, Starting on Tue02/22/25 at 2027, Until Tue03/02/25 at 1304, Routine, line care, [...] Until 03/02/25 at 1304, Routine, nausea, vomiting Or ondansetron (Zofran) injection 4 mgJump to med 4 mg, Intravenous, Every 6 hours PRN, Starting on Tue02/26/25 at 1128, Until Tue03/02/25 at 1304, Routine, vomiting, nausea Or ondansetron (Zofran) 4 MG/5ML solution 4 mgJump to med 4 mg, Oral, Every 6 hours PRN, Starting on Tue02/26/25 at 1128, Until 03/02/25 at 1304, Routine, nausea, vomiting Group 4: [...] Noted Time PHQ-9 Depression Total Score: 13 2 025 10:12 AM EST A fall risk assessment has been complete d for the patient 12/31/2024 3:03 PM EDT A Body Mass Index follow-up plan has been documented for the patient 03/02/2025 9:03 AM EDT documented as of this encounter Care Teams [employer] Relationship Specialty Start Date End Date Vignesh Pickens MD [address] [place] [address] PCP - General 12/31/24 Cayla Erazo APRN, [facility] [id number] [place] [id number] Nurse Practitioner Urology 12/20/24 documented as of this encounter
--- OUTSIDE RECORDS SUMMARY | 2025-02-28 08:15 | XMS_ITS | Encounter Summary ---
Author Organization [facility] Address [address] [place] [address] Care Team Providers Care Manufacturing Director Name Role Phone Cayla Erazo APRN, DNP Unavailable [phone] Vignesh Pickens MD Primary Care Provider [phone] Reason for Visit * Auth/Cert (Routine) Specialty Diagnoses / Procedures Referred By Contac t Referred To Contact Diagnoses Sepsis (CMS/HCC) UTI, CKD, Hyponatremia, COPD exacerbation Bobby Parra MD [address] [place] [phone] Phone: tel: fax: PAV A Inpatient [address] [place] [phone] Referral ID Status Reason Start Date Expiration Date Visits Re quested Visits Authorized [id number] 1 1 Encounter Details Date Type Department Care Team (Latest Contact Info) Description 02/28/2025 8:15 AM EDT Office Visit [facility] [address] [place] [address] Bert Lim, DMD [address] [place] [phone] Caries (Primary Dx) Social History Tobacco Use [...] drink first t rodríguez in the morning (EYE-ARCHITECTURAL DESIGNER) to steady your nerves or to get rid of a hangover? 0 08/15/2024 CAGE Questionnaire Score 0 024 Utilities Answer Date Recorded In the past 12 months has th [employer], gas, oil, or water company threatened to [...] to prescribing narcotic medication. Bert Lim DMD [facility] tip tester PGY-1 Pager #: [phone] Cosigned by Froylan Summers DMD at 03/01/2025 8:09 AM EDT Associated attestation - Froylan Summers DMD - 03/01/2025 8:09 AM EDT I was present during all critical and madden portions of the procedure(s) and immediately available [facility] services the entire duration. See resident note for details. documented in this encounter Plan of Treatment Upcoming Encounters Date Type Department Care Team (Late st Contact Info) Description 03/27/2025 10:30 AM EDT Appointment [facility] Ultrasound [address] [place] [address] 03/27/2025 11:50 AM EDT Clinical Support Medical Office Building Lab [address] [place] [address] 03/27/2025 1:00 PM EDT Office Visit [facility] Urology [address] [facility], [address] [place] [address] Cayla Erazo, MEDICAL INFORMATION SPECIALIST, DNP [address] [place] [address] 05/16/2025 8:00 AM EDT Office Visit [facility] [place] [address] [facility], [address] [place] [address] Karly Gracia MD [address] [place] [address] 06/07/2025 1:00 PM EDT Office Visit [facility] [address] [facility] [address] [place] [address] Tom Iraheta MD [address] [place] [address] documented as of this encounter [...] documented as of this encounter Care Teams Manufacturing Director Relationship Specialty Start Date End Date Vignesh Pickens MD [address] [place] [address] PCP - General 5/12/25 Cayla Erazo, LIZANDRO, DNP [address] [phone] Nurse Practitioner Urology 12/20/24 documented as of this encounter
--- OUTSIDE RECORDS SUMMARY | 2025-03-07 10:00 | XMS_ITS | Encounter Summary ---
Author Organization [facility] Address [address] [place] [address] Care Team Providers Care Program Admin Name Role Phone Cayla Erazo APRN, DNP Unavailable Vignesh Pickens MD Primary Care Provider [phone] Reason for Visit * Other Medical (Routine) - Closed Specialty Diagnoses / Procedures Referred By Contelvie t Referred To Contact Urology Diagnoses Gross hematuria Procedures Cysto- Urology Cayla Erazo APRN, DNP [address] [address] Phone: tel: fax: Referral ID Status Reason Start Date Expiration Date Visits Re quested Visits Authorized [id number] Closed 12/25/2024 06/26/2026 1 1 Encounter Details Date Type Department Care Team (Late st Contact Info) Description 03/07/2025 10:00 AM EDT Office Visit [facility] [address] [place] [address] Doug Chapman MD [id number] [place] [address] Gross hematuria Social History Tobacco [...] any time in the past 12 m [facility], were you homeless or [...] drink first t rodríguez in the morning (EYE-PLOW HOLDER) to steady your nerves or to get rid of a hangover? 0 08/15/2024 CAGE Questionnaire Score 0 024 Utilities Answer Date Recorded In the past 12 months has th e [facility], gas, oil, or water [facility] [employer] threatened to shut off services in your [...] Maxwell MD - 03/07/2025 10:00 AM EDT [facility] Urology Clinic Note CC: hematuria HPI: Eileen Tovar is a 64 y.o. F who was initially evaluated in Sep 2024 for diagnosis ofbilateral hydronephrosis in Jul 2024 thought to be due to severe constipation. She was treated for UTI while inpatient at [facility] and had improvement in renal function and hydronephrosis with indwellingFoley catheter that was removed prior to discharge to [facility] in [place]. She is a limited historian, presented in a wheelchair, and is accompanied by a staff member from [facility] without further information provided. 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 present during entire exam General: Pleasant, [...] Essential (primary) hypertension CAD (coronary artery disease), [place] coronary artery Controlled diabetes mellitus type II without complication Iron deficiency anemia Second hand smoke exposure Acute kidney injury superimposed on CKD ([facility]/HCC) Arthritis Cellulitis of left knee Chronic respiratory failure COPD (chronic obstructive pulmonary disease) ([facility]) Dehydration with hyponatremia Diabetes mellitus ([facility]) Hyperlipidemia Restrictive lung disease Stroke ([facility]) Dave coma scale total score 13-15, unspecified coma timing Pyelonephritis Kidney infection Acquired absence of leg above knee Stage 3 chronic kidney disease ([facility]) Type 2 diabetes mellitus with diabetic chronic kidney disease ([facility]) Peripheral vascular disease, unspecified ([facility]) Prosthetic joint infection ([facility]) Unspecified hydronephrosis Vitamin D deficiency, unspecified Disorder of kidney and ureter, unspecified Unspecified right bundle-branch block Unspecified abdominal pain Tubulo-interstitial nephritis, not specified as acute or chronic Tinea unguium Secondary hyperparathyroidism of renal origin ([facility]) Pain in right toe(s) Pain in left toe(s) Edema, unspecified Presence of left artificial knee joint Other specified disorders of the skin and subcutaneous tissue Other nonspecific abnormal finding of lung field Weakness Other disorders of phosphorus metabolism Other acute postprocedural pain Old myocardial infarction Nontoxic single thyroid nodule Morbid (severe) obesity due to excess calories ([facility]) Mixed simple and mucopurulent chronic bronchitis ([facility]) Methicillin resistant Staphylococcus aureus infection Hypertensive heart and chronic kidney disease with heart failure and stage 1 through stage 4 chronic kidney disease, or unspecified chronic kidney disease ([facility]) Hyperkalemia Hydronephrosis with renal and ureteral calculous obstruction Hemiplegia and hemiparesis following cerebral infarction affecting left non- dominant side ([facility]) Fecal impaction ([facility]) Dysuria Dyspnea, unspecified Deep venous thrombosis of lower extremity Constipation, unspecified Chronic diastolic (congestive) heart failure ([facility]/HCC) Calculus of kidney Atrial premature [...] stenosis of left carotid arteries ([facility]) Anemia in chronic kidney disease Chronic kidney [...] BREAST SURGERY N/A Breast Surgery Reconstruction from [employer] BREAST SURGERY N/A Breast Surgery from [facility] CHOLECYSTECTOMY N/A Cholecystotomy from [employer] KIDNEY SURGERY N/A Kidney Surgery from [employer] KNEE SURGERY N/A Knee Surgery from [employer] [facility] MASTECTOMY N/A Breast Surgery Mastectomy from [employer] SHOULDER SURGERY Right Shoulder Surgery Right from [employer] [4] Family History Problem Relation Name Age [...] Info) Description 03/27/2025 10:30 AM EDT Appointment [facility] Ultrasound [address] [place] [address] 03/27/2025 11:50 AM EDT Clinical Support [facility] [address] [place] [address] 03/27/2025 1:00 PM EDT Office Visit Medical [facility] Building Urology [address] [facility], [address] [place] [address] Cayla Erazo, GYM TEACHER, DNP [address] [place] [address] 05/16/2025 8:00 AM EDT Office Visit [facility] [place] [address], [address] [place] [address] Karly Gracia MD [address] [place] [address] 06/07/2025 1:00 PM EDT Office Visit [facility] [address] [place] [address] Tom Iraheta MD [address] [place] [address] documented as of this encounter Visit Diagnoses Diagnosis Gross hematuria 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 Rhinovirus 02/23/2025 02/23/2025 Assessment Noted Time PHQ-9 Depression Total Score: 13 09/26/ 025 10:12 AM EST A fall risk assessment has been complete d for the patient 12/31/2024 3:03 PM EDT A Body Mass Index follow-up plan has been documented for the patient 03/11/2025 4:27 PM EDT documented as of this encounter Care Teams Program Admin Relationship Specialty Start Date End Date Vignesh Pickens MD [address] [place] [address] PCP - General 12/31/24 Cayla Erazo, LIZANDRO, DNP [address] [place] [address] Nurse Practitioner Urology 12/20/24 documented as of this encounter
[2025-03-13] VITALS (13 sets, daily range): BP systolic 116–151; BP diastolic 61–85; PULSE 68–94; RESP 12–26; TEMP 36.7–37.7; O2SAT 94–100; BMI 37.5; BMI 35.2
--- NOTE | 2025-03-13 11:16 | CT_ITS ---
FINAL REPORT TECHNIQUE: Noncontrast exam This study was performed with techniques to keep radiation doses as low as reasonably achievable, (ALARA). Individualized dose reduction techniques using automated exposure control or adjustment of mA and/or kV according to the patient''s size were employed. CLINICAL HISTORY: lethargy COMPARISON: 03/04/2025 FINDINGS: There are stable areas of encephalomalacia throughout the right hemisphere consistent with chronic infarcts. There is no hemorrhage or edema. Ventricles are normal in size. Visualized paranasal sinuses are clear. IMPRESSION: Stable, multiple chronic infarcts without acute intracranial abnormality. Reviewed, Interpreted and Dictated by Ad Garcia MD Transcribed by Betty Odonnell Authenticated and [facility]
--- OUTSIDE RECORDS SUMMARY | 2025-03-13 11:16 | XMS_ITS | Encounter Summary ---
Author Organization [facility] Address [address] [place] [address] Care Team Providers Care Value Advisor Name Role Phone Cayla Erazo APRN, DNP Unavailable [phone] Vignesh Pickens MD Primary Care Provider [phone] Encounter Details Date Type Department Care Team (Late st Contact Info) Description 01/16/2025 Telephone [facility] [address] [place] [address] Ceci Mitchell MD [address] [place] [address] Social History Tobacco Use Types [...] any time in the past 12 m [facility], were you homeless or living in [...] drink first t rodríguez in the morning (EYE-ASSOCIATE PROFESSOR OF BIBLICAL STUDIES) to steady your nerves or to get [...] - 01/16/2025 10:36 AM EDT Spoke with [facility] , scheduled 01/31 surgery with 8am arrival time, facility is aware of anesthesia preop screening call and arrival time call prior to surgery. Urine culture orderto faxed to facility to be completed divya documented in this encounter Plan of Treatment Upcoming Encounters Date Type Department Care Team (Late st Contact Info) Description 03/27/2025 10:30 AM EDT Appointment [facility] Ultrasound [address] [place] [address] 03/27/2025 11:50 AM EDT Clinical Support [facility] [address] [place] [address] 03/27/2025 1:00 PM EDT Office Visit [facility] [address], [address] [place] [address] Cayla Erazo, AIRCRAFT MAINTENANCE TECHNICIAN, DNP [address] [place] [address] 05/16/2025 8:00 AM EDT Office Visit [facility] [place] [address] [place] [address] Karly Gracia MD [address] [place] [address] 06/07/2025 1:00 PM EDT Office Visit [facility] [address] [place] [address] Tom Iraheta MD [address] [place] [address] documented as of this encounter [...] documented as of this encounter Care Teams Value Advisor Relationship Specialty Start Date End Date Vignesh Pickens MD [address] [place] [address] PCP - General 12/31/24 Cayla Erazo APRN, DNP [address] [place] [id number] Nurse Practitioner Urology 12/20/24 documented as of this encounter
--- OUTSIDE RECORDS SUMMARY | 2025-03-13 11:16 | XMS_ITS | Clinical Summary ---
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) use of suppressive antibiotics/D oxycycline Z79.2 (ICD-10-CM ) 01/14 Active 01/14 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 custodial (current) use of antibiotics Benign Essential Hypertension 19304411 (SNOMED CT) 01/14 Resolved 01/14 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 Benign hypertension 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2 (ICD-10-CM ) 01/14 Inactive 01/14 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) use of antibiotics Anemia in chronic diseases(docu ment disease) D63.8 (ICD-10-CM ) 01/14 Active 01/14 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 Anemia in other chronic diseases classified elsewhere Chronic respiratory failure with hypoxia 46901440 (SNOMED CT) 01/14 Active 01/14 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 Acute respiratory failure COPD 56899542 (SNOMED CT) 01/14 Active 01/14 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 Chronic obstructive pulmonary disease DM Type II E11.9 (ICD-10-CM ) 01/14 Inactive 01/14 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 Type 2 diabetes mellitus without complications Benign Essential Hypertension 51872762 (SNOMED CT) 01/14 Removed 01/14 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 Benign hypertension Acquired absence of left knee joint 839466425 (SNOMED CT) 03/02 Resolved 03/02 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 History of operative procedure on knee Obesity due to excess calories E66.09 (ICD-10-CM ) 03/02 Resolved 03/02 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 Other obesity due to excess calories custodial (current) use of anticoagulant s Z79.01 (ICD-10-CM ) 03/02 Resolved 03/02 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 custodial (current) use of anticoagulants Staph epi infection B95.7 (ICD-10-CM ) 03/02 Resolved 03/02 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 Other staphylococcus as the cause of diseases classified elsewhere Diarrhea 44055582 (SNOMED CT) 09/28 Resolved 09/28 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 Diarrhea Staph hominis infection B95.7 (ICD-10-CM ) 09/28 Resolved 09/28 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 Other staphylococcus as the cause of diseases classified elsewhere Staph hominis infection B95.7 (ICD-10-CM ) 09/28 Removed 09/28 Arie Dougherty MD Other staphylococcus as the cause of diseases classified elsewhere Diarrhea 09030465 (SNOMED CT) 09/28 Removed 09/28 Arie Dougherty MD Diarrhea Acquired absence of left knee joint 146838014 (SNOMED CT) 03/02 Removed 03/02 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 History of operative procedure on knee Cellulitis of left leg 293922296 (SNOMED CT) 03/02 Removed 03/02 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 Cellulitis of lower limb Knee, left, subsequent encounter, infection/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 T84.54xD (ICD-10-CM ) 03/02 Active 03/02 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 Infection and inflammatory reaction due to internal left knee prosthesis, subsequent encounter Staph epi infection B95.7 (ICD-10-CM ) 03/02 Removed 03/02 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 Other staphylococcus as the cause of diseases classified elsewhere custodial (current) use of anticoagulant s Z79.01 (ICD-10-CM ) 03/02 Removed 03/02 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 custodial (current) use of anticoagulants Obesity due to excess calories E66.09 (ICD-10-CM ) 03/02 Removed 03/02 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 Other obesity due to excess calories Hx of malignant neoplasm of breast 634868616 (SNOMED CT) 03/02 Removed 03/02 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 History of malignant neoplasm of breast Medications Medication Instructions Start Date Stop Date Generic Name NDC Provider DOXYCYCLINE MONOHYDRATE 100 MG CAPS Take 1 capsule by mouth twice a day 10/25 doxycycline monohydrate [id number] Arie Dougherty MD ceftriaxone recon soln 2GM IV Q24hrs [facility] 02/18 ceftriaxone recon soln Temi Norris Cubicin RF 800mg IV Q48hrs [facility] 02/18 daptomycin Temi Norris DOXYCYCLINE MONOHYDRATE 100 MG CAPS Take 1 capsule by mouth twice a day 02/03 doxycycline monohydrate 03850823043 Arie Dominguez RF 800mg IV Q48hrs [facility] 02/18 daptomycin Nubia Ervin ceftriaxone recon soln 2GM IV Q24hrs [facility] 02/18 ceftriaxone recon soln Nubiadeidre Ervin IPRATROPIUM-ALBUT MIKE 0.5-2.5 (3) MG/3ML SOLN 3 ml by mouth PRN 01/27 ipratropium-albut mike 27531409106 Nubia Minor Gaviscon 95-358 mg/15 mL suspension by mouth four times a day 30 mL aluminum hydrox-magnesium carb 69119287929 Nubia Minor IPRATROPIUM-ALBUT MIKE 0.5-2.5 (3) MG/3ML SOLN using nebulizer every six hours PRN ipratropium-albut mike 84509777661 Nubia Minor BASAGLAR KWIKPEN 100 UNIT/ML SOPN subcutaneously once a day insulin glargine 08928755398 Nubia Minor MUCUS RELIEF D 60-600 MG [id number] by mouth twice a day pseudoephedrine-g uaifenesin 06043426318 Nubia Minor VITAMIN B-12 100 MCG TABS by mouth once a day cyanocobalamin (vitamin b-12) 62370874716 Nubia Minor PERCOCET 5-325 MG TABS 1-2 tablet every four to six hours oxycodone-acetami nophen 21088841171 Nubia Minor BIOTIN 1000 MCG TABS by mouth once a day biotin 77545808731 Nubia Minor GABAPENTIN 800 MG TABS by mouth four times a day as needed gabapentin 35669559973 Nubia Minor ATORVASTATIN CALCIUM 40 MG TABS by mouth every morning Hold while on daptomycin atorvastatin 21920168829 Nubia Minor FERROUS SULFATE 325 (65 Fe) MG TABS by mouth once a day ferrous sulfate 59748753754 Nubia Minor VENLAFAXINE HCL 75 MG TABS by mouth twice a day venlafaxine 53707324175 Nubia Minor CITRACAL MAXIMUM 315-6.25 MG-MCG TABS by mouth twice a day calcium citrate-vitamin d3 98775025658 Nubia Poncho JANUMET XR 50-1000 MG [id number] by mouth twice a day sitagliptin phos-metformin 94502273528 Nubia Minor GNP HYDROCORTISONE/AL OE 1 % CREA Apply to skin twice a day as needed hydrocortisone acetate 69302743801 Nubia Minor MS CONTIN 15 MG CR-TABS by mouth twice a day morphine 20645298746 Nubia Minor OMEPRAZOLE 20 MG TBEC 2 tablet by mouth once a day omeprazole 28962847563 Nubia Minor DOXYCYCLINE HYCLATE 100 MG TABS Take 1 tablet by mouth twice a day 01/11 doxycycline hyclate 05899361434 Nubia Minor CARVEDILOL 12.5 MG TABS by mouth twice a day carvedilol 49774854747 Nubia Minor PROMETHAZINE HCL 25 MG TABS by mouth three times a day as needed promethazine 18534342729 Nubia Minor TIZANIDINE HCL 4 MG TABS by mouth three times a day as needed tizanidine 07426241623 Nubia Minor LACTULOSE 10 GM/15ML SOLN 30 ml by mouth as needed lactulose 82811858692 Nubia Minor COLACE 100 MG CAPS by mouth twice a day as needed docusate sodium 46392136665 Nubia Minor XARELTO TABLET 15 mg 15 mg Take 1 by mouth once a day XARELTO TABLET 15 mg 15 mg Nubia Minor ANASTROZOLE 1 MG TABS by mouth once a day anastrozole 33148882480 Nubia Minor ACETAMINOPHEN 500 MG TABS by mouth every six hours PRN acetaminophen 31382073524 Nubia Minor LOPERAMIDE HCL 2 MG CAPS by mouth once a day PRN loperamide 71765871753 Nubia Minor ASCORBIC ACID 500 MG TABS by mouth 0.5 tab am and 0.5 tab pm ascorbic acid (vitamin c) 14981127773 Nubia Minor BACLOFEN 10 MG TABS by mouth three times a day baclofen 61359508412 Nubia Minor BREO ELLIPTA 100-25 MCG/ACT AEPB every morning fluticasone furoate-vilantero l 92442501250 Nubia Minor BUMETANIDE 2 MG TABS by mouth twice a day bumetanide 34914410205 Nubia Minor CALCIUM 600 1500 (600 Ca) MG TABS by mouth twice a day calcium carbonate 61446452321 Nubia Minor D3 HIGH POTENCY 10 MCG (400 UNIT) TABS by mouth 2.5 units am and 2.5 units pm cholecalciferol (vitamin d3) 87758349083 Nubia Minor PLAVIX 75 MG TABS by mouth every morning clopidogrel 55887261620 Nubia Minor VITAMIN B-12 1000 MCG TABS by mouth every morning cyanocobalamin (vitamin b-12) 33992458690 Nubia Minor FLONASE ALLERGY RELIEF 50 MCG/ACT SUSP intranasally every morning fluticasone propionate 78083365579 Nubia Minor FOSAMAX 70 MG TABS by mouth once a week alendronate 81962551908 Nubia Minor GLIPIZIDE ER 2.5 MG [id number]-RVT by mouth every morning 0.5 tab glipizide 36845356437 Nubia Minor LANTUS SOLOSTAR 100 UNIT/ML SOPN 8 unit subcutaneously every night insulin glargine 36140286780 Nubia Minor IPRATROPIUM-ALBUT MIKE 0.5-2.5 (3) MG/3ML SOLN 3 ml by mouth PRN 01/27 ipratropium-albut mike 75377311186 Nubia Minor JARDIANCE 10 MG TABS by mouth every morning empagliflozin 39117782820 Nubia Minor MAGNESIUM OXIDE 400 MG TABS by mouth twice a day magnesium oxide 06845081343 Nubia Minor METFORMIN HCL 1000 MG TABS by mouth twice a day metformin 39955746841 Nubia Minor MULTI-VITAMIN HP/MINERALS CAPS by mouth once a day multivitamin,tx-m inerals 05380847231 Nubia Minor ONDANSETRON HCL 4 MG TABS by mouth twice a day PRN ondansetron hcl 83080670103 Nubia Minor PANTOPRAZOLE SODIUM 20 MG TBEC by mouth once a day pantoprazole 71453310734 Nubia Minor PREGABALIN 50 MG CAPS by mouth three times a day pregabalin 15099661308 Nubia Isaac SENNA 8.6 MG TABS by mouth 2 tabs PRN sennosides 60216015711 Nubia Isaac SPIRONOLACTONE 50 MG TABS by mouth once a day spironolactone 18562531238 Nubia Isaac TRAZODONE HCL 150 MG TABS by mouth once a day 2 tabs trazodone 38247966235 Nubia Isaac VALSARTAN 80 MG TABS by mouth twice a day valsartan 78937239977 Nubia Isaac VENLAFAXINE HCL ER 150 MG [id number] by mouth every morning venlafaxine 92103603000 Nubia Isaac VANCOMYCIN HCL SOLR 1gm IV q 12 x 6wks [facility] [phone] 10/05 VANCOMYCIN HCL SOLR 91721347370 Libby Cabello JIMI MS CONTIN 15 MG CR-TABS by mouth twice daily 01/11 MORPHINE SULFATE 80770528703 Arie Dougherty MD PERCOCET 5-325 MG TABS 1-2 tabs, every four to six hours, do not exceed 4000mg of acetaminophen per day 01/11 OXYCODONE-ACETAMI NOPHEN 01717020962 Arie Dougherty MD [facility] IRON 325 (65 Fe) MG TABS by mouth daily 01/11 FERROUS SULFATE 63972015795 Arie Dougherty MD COLACE 100 MG CAPS by mouth twice daily as needed 02/19 DOCUSATE SODIUM 96631634633 Arie Dougherty MD DOXYCYCLINE HYCLATE 100 MG TABS take 1 tab po BID 02/19 DOXYCYCLINE HYCLATE 70403364519 Arie Dougherty MD XARELTO TABLET Take one by mouth once daily. 01/11 RIVAROXABAN TABS 54820759386 Arie Dougherty MD COUMADIN 5 MG ORAL TABLET by mouth, AC dinner 10/17 WARFARIN SODIUM 32475145010 Arie Dougherty MD VANCOMYCIN HCL SOLR 1gm IV q 12 x 6wks [facility] [phone] 08/22 VANCOMYCIN HCL SOLR 58211546901 [facility] VANCOMYCIN HCL SOLR 750 mg IV q 12 x 6wks [facility] [phone] 03/31 VANCOMYCIN HCL SOLR 40520031482 [facility] VANCOMYCIN HCL SOLR 750 mg IV q 12 x 6wks [facility] [phone] 08/22 VANCOMYCIN HCL SOLR 99006975202 Daily Lewis RN VENLAFAXINE HCL 75 MG TABS by mouth twice daily 01/11 VENLAFAXINE HCL 05738893718 Kulwant P PROMETHAZINE HCL 25 MG TABS by mouth three times a day as needed 01/11 PROMETHAZINE HCL 45409721454 Kulwant P B-12 100 MCG TABS by mouth daily 09/29 CYANOCOBALAMIN 05308964591 Kulwant P JANUMET XR 50-1000 MG [id number] by mouth twice daily 01/11 SITAGLIPTIN-METFO RMIN HCL 29787393417 Kulwant P TIZANIDINE HCL 4 MG TABS by mouth three times a day as needed 01/11 TIZANIDINE HCL 23531514855 Kulwant P GABAPENTIN 800 MG TABS by mouth four times a day as needed 01/11 GABAPENTIN 95311830471 Kulwant P CARVEDILOL 12.5 MG TABS by mouth twice daily 01/11 CARVEDILOL 43562232013 Kulwant P ANASTROZOLE 1 MG TABS by mouth daily 01/11 ANASTROZOLE 72559705384 Kulwant P CITRACAL MAXIMUM 315-6.25 MG-MCG TABS by mouth twice daily 01/11 CALCIUM CITRATE-VITAMIN D 44619696429 Kulwant P [facility] OMEPRAZOLE 20 MG TBEC 2 tabs by mouth once daily 01/11 OMEPRAZOLE 29928745909 Kulwant P BIOTIN 1000 MCG TABS by mouth daily 01/11 BIOTIN 05849872799 Kulwant P ATORVASTATIN CALCIUM 40 MG TABS by mouth at bedtime 01/11 ATORVASTATIN CALCIUM 50430425230 Kulwant P COUMADIN 5 MG ORAL TABLET by mouth, AC dinner 05/19 WARFARIN SODIUM 97295705898 Kulwant P LACTULOSE SOLN 30mL by mouth as needed 02/19 LACTULOSE SOLN 64029818007 Kulwant P HYDROCORTISONE ACETATE 1 % CREA apply topically twice a day as needed 10/25 HYDROCORTISONE ACETATE 92960437677 Kulwant P MS CONTIN 15 MG CR-TABS by mouth twice daily 11/20 MORPHINE SULFATE 17518552291 Kulwant P [facility] IRON 325 (65 Fe) MG TABS by mouth daily 11/20 FERROUS SULFATE 67633847597 Kulwant P COLACE 100 MG CAPS by mouth twice daily as needed 02/19 DOCUSATE SODIUM 31929965615 Kulwant P PERCOCET 5-325 MG TABS 1-2 tabs, every four to six hours, do not exceed 4000mg of acetaminophen per day 11/20 OXYCODONE-ACETAMI NOPHEN 92175395872 Kulwant P VANCOMYCIN HCL SOLR 1gm IV q 12 x 6wks [facility] [phone] 08/22 VANCOMYCIN HCL SOLR 89461238987 [facility] Medications Administered No information available. 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 Dietary management education, guidance, and counseling [...] Oral Antibiotic CPT-ca Continue IV antibiotics 2022 CPT-91759 CMP [id number] CBC with Differential 2022 CPT-95749 C- reactive protein [id number], [id number] CPK CPT-J7030 IV Fluids CPT-sl STAT Labs CPT-sl STAT Labs CPT-sl STAT Labs CPT-31662 C- reactive protein CPT-44448 Sedimentation Rate (ESR) 201 02/20/04 CPT-58777 Vancomycin Trough CPT-34629 CMP [id number] CBC with Differential 2015 CPT-36128 C- reactive protein CPT-55752 Sedimentation Rate (ESR) 201 01/31/26 CPT-ca Continue IV antibiotics 2015 CPT-wpc Weekly PICC Line Care 09/28 CPT-46077 CMP [id number] CBC with Differential 2015 CPT-68506 Vancomycin Trough CPT-32999 C- reactive protein CPT-26154 Sedimentation Rate (ESR) 201 01/31/07 CPT-cdpcr C-Diff PCR CPT-isi New IV antibiotic CPT-81353 PICC Line Insertion CPT-54633 [facility] [id number] CBC with Differential 2015 CPT-81499 C- reactive protein CPT-08513 Sedimentation Rate (ESR) 201 01/30/30 CPT-DC Discontinue IV antibiotics 2 CPT-PICREM PICC Removal CPT-ca Continue IV antibiotics 2015 CPT-29820 CMP [id number] CBC with Differential 2015 CPT-75827 C- reactive protein CPT-83207 Sedimentation Rate (ESR) 201 01/27/01 CPT-96335 Vancomycin Trough CPT-ca Continue IV antibiotics 2015 CPT-80589 CMP [id number] CBC with Differential 2015 CPT-07682 C- reactive protein CPT-87661 Sedimentation Rate (ESR) 201 01/27/20 CPT-05395 Vancomycin Trough CPT-ca Continue IV antibiotics 2015 [...]
--- OUTSIDE RECORDS SUMMARY | 2025-03-13 11:17 | XMS_ITS | Clinical Summary ---
Author Organization [facility] Address [address] [place] [address] Care Team Providers Care Pattern Illustrator Name Role Phone Cayla Erazo APRN, DNP Unavailable Vignesh Pickens MD Primary Care Provider [phone] Allergies Active Allergy Reactions Criticality Noted Date [...] 3x/week 30 g 3 09/26/19 25 Active Additional Information Patient not taking.Reported on 03/07/2025 trospium (Sanctura) 20 MG tablet Take 1 tablet (20 mg) by mouth 2 (two) times a day. 60 tablet 09/26/19 026 Active Additional Information Patient not taking.Reported on 03/07/2025 D-Mannose 500 MG capsule Take 2,000 mg by mouth 1 (one) time each day. 120 capsule 09/26/19 25 026 Active mirabegron ER (Myrbetriq) 50 MG tablet Take 1 tablet by mouth daily. Active DULoxetine (Cymbalta) [address] capsule Take 1 capsule by mouth daily for 7 doses. Do not crush or chew. 07/12/20 25 Active insulin glargine-yfgn 100 UNIT/ML injection vial Inject 30 Units under the skin nightly. 03/02/20 25 Active oxyCODONE-vida taminophen (Percocet) 5-325 MG tablet Take 1 tablet by mouth 2 times a day as needed for severe pain. 6 tablet 03/02/20 Active pregabalin (Lyrica) 50 MG capsule Take 1 capsule by mouth daily. 3 capsule 03/02/20 Active fentaNYL (Duragesic) 12 MCG/HR Place 1 patch on the skin every 3rd day. 3 patch 03/02/20 25 Active naloxone (Narcan) 4 mg/0.1 mL nasal spray 1. Give 1 spray in nostril for no/slow breathing or cannot wake after opioid use 2. Call 911 3. 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 6 tablet 03/04/20 Active Additional Information Patient not taking.Reported on 03/07/2025 dextromethorp otero-guaiFENes in (Robitussin-D M) 10-100 MG/5ML [...] with 30mg capsule for a 90mg dose Discontinued diphenhydrAMI NE (Benadryl) 25 MG tablet [...] times a day. @ 0630 and 1999 025 Discontinued(S top Taking at Discharge) fentaNYL [...] Discontinued traZODone (Desyrel) 300 MG tablet 12/13/19 24 Discontinued(E ntered in Error) Vibegron 75 MG tablet Take 75 mg by mouth daily. Take one pill by mouth daily. 30 tablet 12/21/19 025 Discontinued Artificial Tears ophthalmic solution Administer 2 drops into both eyes 3 times a day as needed. 11/24/19 25 025 Discontinued(E ntered in Error) guaiFENesin (GUAIASORB PO) Take 10 mL by mouth every 4 hours as needed. 025 Discontinued(E ntered in Error) mirabegron ER (Myrbetriq) 25 MG tablet Take 2 tablets by mouth every morning. 60 tablet 11 02/01/20 025 Discontinued fluconazole (Diflucan) 100 MG [...] day for 1 day. 03/02/20 25 025 Additional Information Patient not taking.Reported on 03/07/2025 Active Problems Problem Noted Date Diagnosed Date [...] ureteral calculous obstruction 08/17/2024 Kidney infection 08/16/2024 [place] coma scale total sco re 13-15, unspecified [...] without esophagitis 03/28/2017 CAD (coronary artery disease), [place] coronary a rtery 03/28/2017 Controlled diabetes mellitus [...] Encounters Date Type Department Care Team Description 03/07/2025 10:00 AM EDT [facility] [address] [place] [address] Doug Chapman MD Gross hematuria 03/07/2025 Travel 03/04/2025 Results Follow-Up [facility] Medicine Virtual Dept. [address] [place] [address] Madonna Singleton MD 03/01/2025 Telephone [facility] [address] [address] Dental, Surgeon, 02/28/2025 8:15 AM EDT Office Visit [facility] [address] [address] Bert Lim DMD Caries (Primary Dx) 02/28/2025 Travel 02/27/2025 Travel 02/24/2025 Travel 02/22/2025 6:13 PM EDT - 03/02/2025 11:04 AM EDT Hospital Encounter [facility] [address] [place] [address] Daniel Gordillo MD Salahuddin, Nawal, MD Powers, Michael F, MD Pasha, Sara N, MD Sagheer, Iqra, MD Acute respiratory failure with hypoxia and hypercapnia (Primary Dx); Dave coma scale total score 9-12, at arrival to emergency department; Acute cystitis without hematuria; Acute respiratory failure with hypercapnia; COPD exacerbation ([facility]); Acute kidney injury superimposed on CKD ([facility]); Chronic kidney disease, stage 3a ([facility]); Hyponatremia; Acute encephalopathy; Sepsis with encephalopathy without septic shock, due to unspecified organism ([facility]); Chronic diastolic (congestive) heart failure ([facility]); 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 Discharge Disposition: Detention Facility 02/22/2025 Travel 02/22/2025 Orders Only External Location [address] [place] [address] Jordan Carl MD 02/22/2025 Orders Only External Location [address] [place] [address] Jordan Carl MD 02/22/2025 Orders Only External Location [address] [place] [address] Jordan Carl MD 02/22/2025 Orders Only External Location [address] [place] [address] Jordan Carl MD 01/31/2025 9:48 AM EDT Anesthesia Event [facility] [address] [place] [address] Nj Sears MD 01/31/2025 8:55 AM EDT - 01/31/2025 10:10 AM EDT Surgery [facility] [address] [place] [address] Ceci Mitchell MD URETEROSCOPY,CYSTOSCO PY, RETROGRADE PYELOGRAM, BILATERAL STENT PLACEMENT [46709 (CPT )] 01/31/2025 8:03 AM EDT - 01/31/2025 1:39 PM EDT Hospital Encounter [facility] [address] [place] [address] Ceci Mitchell MD Urinary retention (Primary Dx); Gross hematuria Discharge Disposition: Home or Self Care 01/31/2025 Travel 01/24/2025 2:00 PM EDT Pre-Admission Testing [facility] [address] [place] [address] 01/24/2025 Travel 01/23/2025 Telephone [facility] [address] [place] [address] Ceci Mitchell MD 01/17/2025 Telephone [facility] [address] [place] [address] Ceci Mitcehll MD 01/16/2025 Telephone [facility] [address] [place] [address] Ceci Mitchell MD 01/03/2025 2:15 PM EDT - 01/03/2025 11:59 PM EDT Hospital Encounter [facility] [address]nd [place] [address] Gross hematuria Discharge Disposition: Home or Self Care 01/03/2025 Travel 12/31/2024 4:00 PM EDT Office Visit [facility] [address] [facility] 5th Floor [address] [place] [address] Bert Canela MD Asymptomatic bilateral carotid artery stenosis (Primary Dx); PVD (peripheral vascular disease) ([facility]); Hx of AKA (above knee amputation), left ([facility]); History of stroke; Type 2 diabetes mellitus without complication, unspecified whether oil heaterman insulin use 12/31/2024 2:01 PM EDT - 12/31/2024 11:59 PM EDT Hospital Encounter [facility] [address] [facility] 5th Floor [address], [address] [place] [address] Coronary artery disease involving [place] heart without angina pectoris, unspecified vessel or lesion type; S/P AKA (above knee amputation) bilateral ([facility]); Acute left arterial ischemic stroke, ICA (internal carotid artery) ([facility]) Discharge Disposition: Home or Self Care 12/31/2024 2:01 PM EDT - 12/31/2024 11:59 PM EDT Hospital Encounter [facility] [address] [facility] 5th Floor [address], [address] [place] [address] S/P AKA (above knee amputation) bilateral ([facility]); Encounter for surgical aftercare following surgery on the circulatory system Discharge Disposition: Home or Self Care 12/31/2024 Travel 12/20/2024 9:20 AM EDT Office Visit [facility] [address], [address] [place] [address] Cayla Erazo, CONDUCTOR YARD, DNP Recurrent UTI (Primary Dx); Hydronephrosis, unspecified hydronephrosis type; Urinary retention; Post-menopausal atrophic vaginitis; Gross hematuria 12/20/2024 Orders Only External Location [address] [place] [address] Provider, External 12/20/2024 Travel from Last 3 Months Immunizations Immunization Administration Dates Next Due Influenza, injectable, quadrivalent, preservativ e free 05/11/2016 [place] COVID-19 Vaccine (Purple Cap) 12 + 09/30/2020,09/09/2020 [...] first t rodríguez in the morning ([employer]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nd [place] [address] 03/27/2025 11:50 AM EDT Clinical Support [facility] [address] [place] [address] 03/27/2025 1:00 PM EDT Office Visit [facility] Urology [address] [facility], [address] [place] [address] Cayla Erazo, CONDUCTOR YARD, DNP [address] [place] [address] 05/16/2025 8:00 AM EDT Office Visit [facility] Kimberly Vivian [address] [facility], [address] [place] [address] Karly Gracia MD [address] [place] [address] 06/07/2025 1:00 PM EDT Office Visit [facility] [address] [place] [address] Tom Iraheta MD [address] [place] [address] Health Maintenance Due Date Last [...] - Risk 60-74 years 1-dose series) 2019 [facility]-MAIUI-20 Vaccine (3 - Pfizer risk series) 10/28/2020 09/30/2020, 09/09/2020 [facility]- SDOH Screenings 02/18/2025 [facility]-Adult SDOH Screenings 02/18/2025 08/20/2024 [facility]-Influenza Vaccine (#1) 2025 05/11/2016 [facility]-Diabetes: Hemoglobin A1C 05/24/2025 02/22/2025, 03/05/2014 [facility]-Depression Screening 03/07/2026 025, 09/26/2024, 09/13/2022, Additional history exists [facility]-Hepatitis C Screening Completed 08/15/2024 [facility]-Obesity Intervention Completed 025, 02/28/2025, 02/22/2025, Additional history exists HPV Vaccines Aged Out [...] this topic Medical Devices Implanted Type Area Vest Front Presser Device Identifier Shelf Expiration Date Model / Serial / Lot Stent Ureteral Tria [employer] Monofilament 7f/24cm - [id number] Implanted:Qty: 1 on 01/31/2025 by Ceci Mitchell MD at [facility] Right: Kidney AutoESL-[id number] 49 06/14/2027 [id number] / / [id number] Stent Ureteral [employer]ria [employer] Monofilament 7f/24cm - [id number] Implanted:Qty: 1 on 01/31/2025 by Ceci Mitchell MD at [facility] Left: Kidney AutoESL-[id number] 49 07/02/2027 [id number] / / [id number] Procedures Procedure Name Priority Date/Time Associated Diagnosis [...] EDT EXTUBATION Routine 02/24/2025 9:49 AM EDT MN CRITICAL CARE, E/M 30-74 MINUTES Routine 02/24/2025 7:08 AM EDT Acute respiratory failure with hypoxia and hypercapnia Acute kidney injury superimposed on CKD ([facility]) Chronic kidney disease, stage 3a ([facility]) Hyponatremia Acute encephalopathy Sepsis with encephalopathy without septic shock, due to unspecified organism ([facility]) Chronic diastolic (congestive) heart failure ([facility]) POCT GLUCOSE METER UNSOLICITED RESULTS [...] AND TREAT Routine 02/23/2025 10:25 AM EDT MN CRITICAL CARE, E/M 30-74 MINUTES Routine 02/23/2025 9:10 AM EDT Acute respiratory failure with hypoxia and hypercapnia Acute kidney injury superimposed on CKD ([facility]) Chronic kidney disease, stage 3a ([facility]) Hyponatremia Acute encephalopathy Sepsis with encephalopathy without septic shock, due to unspecified organism ([facility]) VANCOMYCIN, RANDOM, PLASMA Routine 02/23/2025 [...] ANESTHESIA PLACEHOLDER Routine 01/31/2025 9:58 AM EDT MN AN ELECTIVE ENDOTRACHEAL AIRWAY Routine 01/31/2025 9:58 AM EDT MN CYSTO/URETERO/PYELOSC ,BX &/OR FULG LESN 01/31/2025 9:32 [...] 2:27 PM EDT Coronary artery disease involving [place] heart without angina pectoris, unspecified vessel or lesion type S/P AKA (above knee amputation) bilateral ([facility]/HCC) Acute left arterial ischemic stroke, ICA (internal carotid artery) ([facility]) URINE CULTURE Routine 12/20/2024 2:33 PM EDT Hydronephrosis, unspecified hydronephrosis type Urinary retention BASIC METABOLIC PANEL, PLASMA Routine 12/20/2024 11:54 AM EDT Hydronephrosis, unspecified hydronephrosis type UROLOGY UDS WITH BASE PERFORMABLE CHARGES Routine 12/20/2024 10:28 AM EDT Hydronephrosis, unspecified hydronephrosis type Urinary retention MN COMPLEX CYSTOMETROGRAM W/VOID PRESS&URETHRAL PROFILE Routine 12/20/2024 10:28 AM EDT Hydronephrosis, unspecified hydronephrosis type Urinary retention INJECTION FOR BLADDER XRAY WITHOUT VOIDING Routine 12/20/2024 10:28 AM EDT Hydronephrosis, unspecified hydronephrosis type Urinary retention POC ULTRASOUND 12/20/2024 HEPATITIS C ANTIBODY - ED W/REFLEX TO [...] - 99 mg/dL 03/02/2025 8:14 AM EDT [facility] Comment:Accuracy of a glucos e result [...] for testing. Comment 03/02/2025 8:14 AM EDT [facility] Interior Design Program Chair ID Stefanie Frances 025 8:14 AM EDT HEALTHCARE LAB Device ID [id number] 03/02/2025 8:14 AM EDT HEALTHCARE LAB Specimen Type POC Capillary 03/02/2025 8:14 AM EDT HEALTHCARE LAB Blood Capillary blood specimen / Unknown 03/02/2025 8:13 AM EDT 03/02/2025 8:14 AM EDT us Madonna Singleton MD LAB POINT OF CARE TE ST DOCKED DEVICE UNSOLICITED RESULTS Final Result Performing Organization Address City/[facility]/ZIP Co de Phone Number HEALTHCARE LAB [address] [place] [address] * SEND HECTOR MESSAGE (03/01/2025 4:15 PM EDT) Only the most recent of2 resultswithin the time period is included. Urine Urine specimen obtained by clean catch procedure / Unknown Non-blood Collection / Unknown 03/01/2025 4:15 PM EDT 03/01/2025 4:26 PM EDT us Madonna Singleton MD LAB URINE ORDERABLES Final Resul t Performing Organization Address City/[facility] de Phone Number [facility] [address] [place] [address] * Urine [place] Panel (03/01/2025 4:15 PM EDT) Only the most recent of2 resultswithin the time period is included. Extra Sent for Culture 03/01/2025 6:01 PM EDT [facility] Urine Urine specimen obtained by clean catch procedure / Unknown Non-blood Collection / Unknown 03/01/2025 4:15 PM EDT 03/01/2025 4:26 PM EDT us Madonna Singleton MD LAB URINE ORDERABLES Final Resul t Performing Organization Address City/[facility] Co de Phone Number [facility] [address] [place] [address] * Urinalysis Microscopic Examination (03/01/2025 4:15 PM EDT) Only the most recent of2 resultswithin the time period is included. Urine Urine specimen obtained by clean catch procedure / Unknown Non-blood Collection / Unknown 03/01/2025 4:15 PM EDT 03/01/2025 4:26 PM EDT us Madonna Singleton MD LAB URINE ORDERABLES Final Resul t [facility] [address] [place] [address] * (ABNORMAL) Urinalysis with reflex microscopic (Culture NOT Included) (03/01/2025 4:15 PM EDT) Only the most recent of2 resultswithin the time period is included. Color, Urine Yellow LAB URINALYSIS - AUTOMATED METHOD 03/01/2025 4:34 PM EDT [facility] Clarity, Urine Cloudy LAB URINALYSIS - AUTOMATED METHOD 03/01/2025 4:34 PM EDT [facility] Spec [place], Urine 1.008 1.005 - 1.030 LAB URINALYSIS - AUTOMATED METHOD 03/01/2025 4:34 PM EDT [facility] pH, Urine 6.5 5.0 - 8.0 LAB URINALYSIS - AUTOMATED METHOD 03/01/2025 4:34 PM EDT [facility] Protein, Urine 30(A) Negative mg/dL LAB URINALYSIS - AUTOMATED METHOD 03/01/2025 4:34 PM EDT [facility] Glucose, Urine Negative Negative mg/dL LAB URINALYSIS - AUTOMATED METHOD 03/01/2025 4:34 PM EDT [facility] Ketones, Urine Negative Negative mg/dL LAB URINALYSIS - AUTOMATED METHOD 03/01/2025 4:34 PM EDT [facility] Blood, Urine Large(A) Negative LAB URINALYSIS - AUTOMATED METHOD 03/01/2025 4:34 PM EDT [facility] Bilirubin, Urine Negative Negative LAB URINALYSIS - AUTOMATED METHOD 03/01/2025 4:34 PM EDT [facility] Urobilinogen, Urine 0.2 0.2 to 1.0 mg/dL LAB URINALYSIS - AUTOMATED METHOD 03/01/2025 4:34 PM EDT [facility] Leukocytes, Urine Large(A) Negative LAB URINALYSIS - AUTOMATED METHOD 03/01/2025 4:34 PM EDT [facility] Nitrite, Urine Negative Negative LAB URINALYSIS - AUTOMATED METHOD 03/01/2025 4:34 PM EDT [facility] RBC, Urine >50(A) 0 to 3 /HPF LAB URINALYSIS - AUTOMATED METHOD 03/01/2025 4:34 PM EDT [facility] WBC, Urine >50(A) 0 to 5 /HPF LAB URINALYSIS - AUTOMATED METHOD 03/01/2025 4:34 PM EDT [facility] Squamous Epithelial Cells 3 - 5 0 to 5 /HPF LAB URINALYSIS - AUTOMATED METHOD 03/01/2025 4:34 PM EDT [facility] Hyaline Casts 0 - 2 0 to 5 /LPF LAB URINALYSIS - AUTOMATED METHOD 03/01/2025 4:34 PM EDT [facility] Bacteria, Urine Negative Negative LAB URINALYSIS - AUTOMATED METHOD 03/01/2025 4:34 PM EDT [facility] Urine Urine specimen obtained by clean catch procedure / Unknown Non-blood Collection / Unknown 03/01/2025 4:15 PM EDT 03/01/2025 4:26 PM EDT us Madonna Mani BENSON LAB URINE ORDERABLES Final Resul t [facility] [address] [place] [address] * (ABNORMAL) Urine Culture (03/01/2025 4:15 PM EDT) Only the most recent of4 resultswithin the time period is included. Culture 10,000 - 100,000 CFU/mL Enterobacter cloacae complex(A) CHRISTIANO 03/05/2025 12:12 PM EDT [facility] Comment: This isolate has been identified using the FDA Approved [place] [place] System Edited result: Previously reported as [...] MICROBIOLOGY - GENERAL ORDER GIO Final Result [facility] [address] [place] [address] * (ABNORMAL) CBC and Differential (03/01/2025 4:08 AM EDT) Only the most recent of4 resultswithin the time period is included. WBC Count 6.83 3.70 - 10.30 10*3/uL LAB HEMATOLOGY METHOD 03/01/2025 4:54 AM EDT [facility] RBC Count 3.61(L) 3.90 - 5.20 10*6/uL LAB HEMATOLOGY METHOD 03/01/2025 4:54 AM EDT [facility] HGB 9.2(L) 11.2 - 15.7 g/dL LAB HEMATOLOGY METHOD 03/01/2025 4:54 AM EDT [facility] HCT 29.9(L) 34.0 - 45.0 % LAB HEMATOLOGY METHOD 03/01/2025 4:54 AM EDT [facility] Platelet Count 294 155 - 369 10*3/uL LAB HEMATOLOGY METHOD 03/01/2025 4:54 AM EDT [facility] MCV 83 79 - 98 fL LAB HEMATOLOGY METHOD 03/01/2025 4:54 AM EDT [facility] MCH 25.5(L) 26.0 - 32.0 pg LAB HEMATOLOGY METHOD 03/01/2025 4:54 AM EDT [facility] MCHC 30.8 30.7 - 35.5 g/dL LAB HEMATOLOGY METHOD 03/01/2025 4:54 AM EDT [facility] RDW 15.1(H) 11.5 - 14.5 % LAB HEMATOLOGY METHOD 03/01/2025 4:54 AM EDT [facility] MPV 9.2 8.8 - 12.5 fL LAB HEMATOLOGY METHOD 03/01/2025 4:54 AM EDT [facility] nRBC 0.0 <=0.0 per 100 WBCs LAB HEMATOLOGY METHOD 03/01/2025 4:54 AM EDT [facility] Differential Type Automated LAB HEMATOLOGY METHOD 03/01/2025 4:54 AM EDT [facility] Neutrophils % 56 % LAB HEMATOLOGY METHOD 03/01/2025 4:54 AM EDT [facility] Lymphocytes % 25 % LAB HEMATOLOGY METHOD 03/01/2025 4:54 AM EDT [facility] Monocytes % 11 % LAB HEMATOLOGY METHOD 03/01/2025 4:54 AM EDT [facility] Eosinophils % 6 % LAB HEMATOLOGY METHOD 03/01/2025 4:54 AM EDT [facility] Basophils % 1 % LAB HEMATOLOGY METHOD 03/01/2025 4:54 AM EDT [facility] Immature Granulocytes % 1 % LAB HEMATOLOGY METHOD 03/01/2025 4:54 AM EDT [facility] Neutrophils Absolute 3.86 1.60 - 6.10 10*3/uL LAB HEMATOLOGY METHOD 03/01/2025 4:54 AM EDT [facility] Lymphocytes Absolute 1.70 1.20 - 3.90 10*3/uL LAB HEMATOLOGY METHOD 03/01/2025 4:54 AM EDT [facility] Monocytes Absolute 0.74 0.30 - 0.90 10*3/uL LAB HEMATOLOGY METHOD 03/01/2025 4:54 AM EDT [facility] Eosinophils Absolute 0.44 0.00 - 0.50 10*3/uL LAB HEMATOLOGY METHOD 03/01/2025 4:54 AM EDT [facility] Basophils Absolute 0.05 0.00 - 0.10 10*3/uL LAB HEMATOLOGY METHOD 03/01/2025 4:54 AM EDT [facility] Immature Granulocytes Absolute 0.04 0.00 - 0.06 10*3/uL LAB HEMATOLOGY METHOD 03/01/2025 4:54 AM EDT [facility] Blood Venous blood specimen / Unknown Venipuncture / Unknown 03/01/2025 4:08 AM EDT 03/01/2025 4:42 AM EDT Narrative [facility] - 03/01/2025 4:54 AM EDT Therapeutic decision making should be based on absolute values, rather than percentages. us Madonna Singleton MD LAB BLOOD ORDERABLES Final Resul t Performing Organization Address City/State/[facility] Co de Phone Number [facility] [address] [place] [address] * Phosphorus, Plasma (03/01/2025 4:08 AM EDT) Only the most recent of4 resultswithin the time period is included. Phosphorus, Plasma 4.4 2.5 - 4.5 mg/dL 03/01/2025 5:14 AM EDT [facility] Blood Venous blood specimen / Unknown Venipuncture / Unknown 03/01/2025 4:08 AM EDT 03/01/2025 4:43 AM EDT us Madonna Singleton MD LAB BLOOD ORDERABLES Final Resul t [facility] [address] [place] [address] * Magnesium, Plasma (03/01/2025 4:08 AM EDT) Only the most recent of5 resultswithin the time period is included. Magnesium, Plasma 2.0 1.9 - 2.4 mg/dL 03/01/2025 5:14 AM EDT [facility] Blood Venous blood specimen / Unknown Venipuncture / Unknown 03/01/2025 4:08 AM EDT 03/01/2025 4:43 AM EDT Madonna Singleton MD LAB BLOOD ORDERABLES Final Resul t Performing Organization Address [facility] Co de Phone Number [facility] [address] [place] [address] * (ABNORMAL) Basic Metabolic Panel, Plasma (03/01/2025 4:08 AM EDT) Only the most recent of5 resultswithin the time period is included. Glucose, Plasma 205(H) 74 - 99 mg/dL 03/01/2025 5:14 AM EDT [facility] BUN, Plasma 40(H) 8 - 23 mg/dL 03/01/2025 5:14 AM EDT [facility] Creatinine, Plasma 1.84(H) 0.60 - 1.10 mg/dL 03/01/2025 5:14 AM EDT [facility] BUN/Creatinine Ratio 22 03/01/2025 5:14 AM EDT [facility] Sodium, Plasma 125(L) 136 - 145 mmol/L 03/01/2025 5:14 AM EDT [facility] Potassium, Plasma 4.5 3.6 - 4.9 mmol/L 03/01/2025 5:14 AM EDT [facility] Chloride, Plasma 91(L) 97 - 107 mmol/L 03/01/2025 5:14 AM EDT [facility] CO2, Plasma 23 22 - 29 mmol/L 03/01/2025 5:14 AM EDT [facility] Anion Gap 11 6 - 16 mmol/L 03/01/2025 5:14 AM EDT [facility] Total Calcium, Plasma 8.8(L) 8.9 - 10.2 mg/dL 03/01/2025 5:14 AM EDT [facility] eGFRcr 30.1 mL/min/1.7 3m*2 03/01/2025 5:14 AM EDT [facility] Comment:Reported eGFRcr in m L/min/1.73m2 is based the CKD-EPI 2020 equation that does not use a race coefficient. Blood Venous blood specimen / Unknown Venipuncture / Unknown 03/01/2025 4:08 AM EDT 03/01/2025 4:43 AM EDT us Madonna Singleton MD LAB BLOOD ORDERABLES Final Resul t [facility] [address] [place] [address] * XR Panorex (02/27/2025 12:13 PM EDT) [...] in the posterior aspect of tooth #31. Kenneth wear in tooth number 8, 9 and 23. No periapical lucency Procedure Note Lucas Cristobal MD - 02/27/2025 CLINICAL INDICATION: Odontogenic infection TECHNIQUE: XR PANOREX COMPARISON: None. FINDINGS: Rounded lucency in tooth #6. Aggressive destruction in the posterioraspect of tooth #31. Kenneth wear in tooth number 8, 9 and [...] LAB HEMATOLOGY METHOD 02/26/2025 5:25 AM EDT [facility] RBC Count 4.00 3.90 - 5.20 10*6/uL LAB HEMATOLOGY METHOD 02/26/2025 5:25 AM EDT [facility] HGB 10.3(L) 11.2 - 15.7 g/dL LAB HEMATOLOGY METHOD 02/26/2025 5:25 AM EDT [facility] HCT 32.3(L) 34.0 - 45.0 % LAB HEMATOLOGY METHOD 02/26/2025 5:25 AM EDT [facility] Platelet Count 375(H) 155 - 369 10*3/uL LAB HEMATOLOGY METHOD 02/26/2025 5:25 AM EDT [facility] MCV 81 79 - 98 fL LAB HEMATOLOGY METHOD 02/26/2025 5:25 AM EDT [facility] MCH 25.8(L) 26.0 - 32.0 pg LAB HEMATOLOGY METHOD 02/26/2025 5:25 AM EDT [facility] MCHC 31.9 30.7 - 35.5 g/dL LAB HEMATOLOGY METHOD 02/26/2025 5:25 AM EDT [facility] RDW 15.5(H) 11.5 - 14.5 % LAB HEMATOLOGY METHOD 02/26/2025 5:25 AM EDT [facility] MPV 8.9 8.8 - 12.5 fL LAB HEMATOLOGY METHOD 02/26/2025 5:25 AM EDT [facility] nRBC 0.0 <=0.0 per 100 WBCs LAB HEMATOLOGY METHOD 02/26/2025 5:25 AM EDT [facility] Blood Venous blood specimen / Unknown Venipuncture / Unknown 02/26/2025 4:51 AM EDT 02/26/2025 5:12 AM EDT us Ludy Hill MD LAB BLOOD ORDERABLES Final Resul t [facility] [address] [place] [address] * (ABNORMAL) Renal function panel (02/26/2025 4:51 AM EDT) Glucose, Plasma 156(H) 74 - 99 mg/dL 02/26/2025 5:54 AM EDT [facility] BUN, Plasma 26(H) 8 - 23 mg/dL 02/26/2025 5:54 AM EDT [facility] Creatinine, Plasma 1.62(H) 0.60 - 1.10 mg/dL 02/26/2025 5:54 AM EDT [facility] BUN/Creatinine Ratio 16 02/26/2025 5:54 AM EDT [facility] Sodium, Plasma 133(L) 136 - 145 mmol/L 02/26/2025 5:54 AM EDT [facility] Potassium, Plasma 4.2 3.6 - 4.9 mmol/L 02/26/2025 5:54 AM EDT [facility] Chloride, Plasma 96(L) 97 - 107 mmol/L 02/26/2025 5:54 AM EDT [facility] CO2, Plasma 24 22 - 29 mmol/L 02/26/2025 5:54 AM EDT [facility] Anion Gap 13 6 - 16 mmol/L 02/26/2025 5:54 AM EDT [facility] Total Calcium, Plasma 8.9 8.9 - 10.2 mg/dL 02/26/2025 5:54 AM EDT [facility] Phosphorus, Plasma 3.8 2.5 - 4.5 mg/dL 02/26/2025 5:54 AM EDT [facility] Albumin, Plasma 3.5 3.5 - 5.2 g/dL 02/26/2025 5:54 AM EDT [facility] eGFRcr 35.1 mL/min/1.7 3m*2 02/26/2025 5:54 AM EDT [facility] Comment:Reported eGFRcr in m L/min/1.73m2 is based the CKD-EPI 2020 equation that does not use a race coefficient. Blood Venous blood specimen / Unknown Venipuncture / Unknown 02/26/2025 4:51 AM EDT 02/26/2025 5:13 AM EDT us Ludy Hill MD LAB BLOOD ORDERABLES Final Resul t [facility] [address] [place] [address] * ECG Adult (02/25/2025 6:38 PM EDT) Only the most recent of4 resultswithin the time period is included. EKG DIAGNOSIS CLASS Abnormal MUSE ECG Ventricular Rate 68 BPM MUSE ECG Atrial Rate 68 BPM MUSE ECG MN Interval 198 ms MUSE ECG QRSD Interval 136 ms MUSE ECG QT Interval 450 ms MUSE ECG QTC Interval 478 ms MUSE ECG P [place] 71 degrees MUSE ECG R [place] 265 degrees MUSE ECG T Wave [place] 50 degrees MUSE ECG Diagnosis Sinus rhythm with marked sinus arrhythmia MUSE ECG Diagnosis Right bundle branch block MUSE ECG Diagnosis Abnormal ECG MUSE ECG Diagnosis MUSE ECG Diagnosis Confirmed by Karly Gracia ([id number]) on 02/26/2025 3:20:41 PM MUSE ECG 02/25/2025 6:38 PM EDT 02/26/2025 3:20 PM EDT us Ludy Hill MD ECG ORDERABLES Final Result MUSE ECG * (ABNORMAL) Cystatin C (02/25/2025 1:36 AM EDT) Only the most recent of3 resultswithin the time period is included. Cystatin C 2.37(H) 0.61 - 0.95 mg/L 02/25/2025 2:27 AM EDT [facility] Blood Venous blood specimen / Unknown Venipuncture / Unknown 02/25/2025 1:36 AM EDT 02/25/2025 1:57 AM EDT us Daniel Ralph MD LAB BLOOD ORDERABLES Final R esult [facility] [address] [place] [address] * [place] CRITICAL CARE, E/M 30-74 MINUTES (02/24/2025 7:08 [...] LAB HEMATOLOGY METHOD 02/24/2025 1:14 AM EDT [facility] Blood Venous blood specimen / Unknown Venipuncture / Unknown 02/24/2025 1:01 AM EDT 02/24/2025 1:13 AM EDT Daniel Ralph MD LAB BLOOD ORDERABLES Final R esult Performing Organization Address [facility] Co de Phone Number [facility] [address] [place] [address] * (ABNORMAL) Procalcitonin (02/24/2025 1:01 AM EDT) Only the most recent of2 resultswithin the time period is included. Procalcitonin, Plasma 0.12(H) <0.09 ng/mL 02/24/2025 1:44 AM EDT [facility] Blood Venous blood specimen / Unknown Venipuncture / Unknown 02/24/2025 1:01 AM EDT 02/24/2025 1:06 AM EDT Narrative [facility] - 02/24/2025 1:44 AM [...] predict 28 day mortality risk. Please consult [email or web address] for more information. Test performed at [facility], [facility] Laboratory. us Daniel Ralph MD LAB BLOOD ORDERABLES Final R esult Performing Organization Address City/[facility]/ZIP Co de Phone Number [facility] [address] [place] [address] * (ABNORMAL) Blood gas panel, venous (02/24/2025 1:01 AM EDT) Only the most recent of5 resultswithin the time period is included. [facility] [address] pH, Venous 7.43 7.32 - 7.43 LAB HEMATOLOGY METHOD 02/24/2025 1:19 AM EDT [facility] pCO2, Venous 40 37 - 52 mmHg LAB HEMATOLOGY METHOD 02/24/2025 1:19 AM EDT [facility] pO2, Venous 143(H) 25 - 40 mmHg LAB HEMATOLOGY METHOD 02/24/2025 1:19 AM EDT [facility] SO2, Measured, Venous 98(H) 65 - 80 % LAB HEMATOLOGY METHOD 02/24/2025 1:19 AM EDT [facility] Base Excess, Venous 1.9 -2.0 - 3.0 mmol/L LAB HEMATOLOGY METHOD 02/24/2025 1:19 AM EDT [facility] Bicarbonate, Calculated, Venous 27(H) 22 - 26 mmol/L LAB HEMATOLOGY METHOD 02/24/2025 1:19 AM EDT [facility] Hematocrit, Whole Blood 27.7(L) 34.0 - 45.0 % LAB HEMATOLOGY METHOD 02/24/2025 1:19 AM EDT [facility] Sodium, Whole Blood 132(L) 136 - 145 mmol/L LAB HEMATOLOGY METHOD 02/24/2025 1:19 AM EDT [facility] Potassium, Whole Blood 4.3 3.6 - 4.9 mmol/L LAB HEMATOLOGY METHOD 02/24/2025 1:19 AM EDT [facility] Chloride, Whole Blood 99 97 - 107 mmol/L LAB HEMATOLOGY METHOD 02/24/2025 1:19 AM EDT [facility] Glucose, Whole Blood 154(H) 74 - 99 mg/dL LAB HEMATOLOGY METHOD 02/24/2025 1:19 AM EDT [facility] Lactate, Venous, Whole Blood 0.9 0.5 - 2.2 mmol/L LAB HEMATOLOGY METHOD 02/24/2025 1:19 AM EDT [facility] Ionized Calcium, Whole Blood 4.2(L) 4.6 - 5.1 mg/dL LAB HEMATOLOGY METHOD 02/24/2025 1:19 AM EDT [facility] Blood Venous blood specimen / Unknown Venipuncture / Unknown 02/24/2025 1:01 AM EDT 02/24/2025 1:13 AM EDT us Daniel Ralph MD LAB BLOOD ORDERABLES Final R esult [facility] [address] [place] [address] * (ABNORMAL) Comprehensive metabolic panel (02/24/2025 1:01 AM EDT) Only the most recent of2 resultswithin the time period is included. Glucose, Plasma 152(H) 74 - 99 mg/dL 02/24/2025 1:44 AM EDT [facility] BUN, Plasma 40(H) 8 - 23 mg/dL 02/24/2025 1:44 AM EDT [facility] Creatinine, Plasma 2.04(H) 0.60 - 1.10 mg/dL 02/24/2025 1:44 AM EDT [facility] BUN/Creatinine Ratio 20 02/24/2025 1:44 AM EDT [facility] Sodium, Plasma 132(L) 136 - 145 mmol/L 02/24/2025 1:44 AM EDT [facility] Potassium, Plasma 4.9 3.6 - 4.9 mmol/L 02/24/2025 1:44 AM EDT [facility] Chloride, Plasma 97 97 - 107 mmol/L 02/24/2025 1:44 AM EDT [facility] CO2, Plasma 22 22 - 29 mmol/L 02/24/2025 1:44 AM EDT [facility] Anion Gap 13 6 - 16 mmol/L 02/24/2025 1:44 AM EDT [facility] Total Calcium, Plasma 8.6(L) 8.9 - 10.2 mg/dL 02/24/2025 1:44 AM EDT [facility] Total Protein 6.9 6.3 - 7.9 g/dL 02/24/2025 1:44 AM EDT [facility] Albumin, Plasma 3.3(L) 3.5 - 5.2 g/dL 02/24/2025 1:44 AM EDT [facility] AST, Plasma 16 10 - 35 U/L 02/24/2025 1:44 AM EDT [facility] Comment:Hemolyzed, result ma y be falsely increased. ALT, Plasma 15 10 - 35 U/L 02/24/2025 1:44 AM EDT [facility] Alkaline Phosphatase, Plasma 105 46 - 142 U/L 02/24/2025 1:44 AM EDT [facility] Total Bilirubin, Plasma <0.2(L) 0.2 - 1.1 mg/dL 02/24/2025 1:44 AM EDT [facility] eGFRcr 26.6 mL/min/1.7 3m*2 02/24/2025 1:44 AM EDT [facility] Comment:Reported eGFRcr in m L/min/1.73m2 is based the CKD-EPI 2020 equation that does not use a race coefficient. Blood Venous blood specimen / Unknown Venipuncture / Unknown 02/24/2025 1:01 AM EDT 02/24/2025 1:06 AM EDT Daniel Ralph MD LAB BLOOD ORDERABLES Final R esult Performing Organization Address City/[facility]/ZIP Co de Phone Number [facility] [address] [place] [address] * Sodium, urine, random (02/23/2025 3:12 PM EDT) Sodium, Urine 31 mmol/L 02/23/2025 4:03 PM EDT [facility] Urine Urine specimen from urinary conduit / Unknown Non-blood Collection / Unknown 02/23/2025 3:12 PM EDT 02/23/2025 3:24 PM EDT us Daniel Ralph MD LAB URINE ORDERABLES Final R esult [facility] [address] [place] [address] * Osmolality, urine (02/23/2025 3:12 PM EDT) Osmolality, Urine 408 50 - 1,200 mOsm/kg 02/23/2025 3:59 PM EDT [facility] Urine Urine specimen from urinary conduit / Unknown Non-blood Collection / Unknown 02/23/2025 3:12 PM EDT 02/23/2025 3:23 PM EDT us Daniel Ralph MD LAB URINE ORDERABLES Final R esult Performing Organization Address [facility]/ZIP Co de Phone Number [facility] [address] [place] [address] * (ABNORMAL) Sodium (02/23/2025 3:04 PM EDT) Only the most recent of4 resultswithin the time period is included. Sodium, Plasma 129(L) 136 - 145 mmol/L 02/23/2025 3:44 PM EDT [facility] Blood Venous blood specimen / Unknown Venipuncture / Unknown 02/23/2025 3:04 PM EDT 02/23/2025 3:13 PM EDT us Daniel Ralph MD LAB BLOOD ORDERABLES Final R esult Performing Organization Address [facility] Co de Phone Number [facility] [address] [place] [address] * Osmolality (02/23/2025 3:04 PM EDT) Osmolality, Serum 289 280 - 301 mOsm/Kg 02/23/2025 4:11 PM EDT [facility] Blood Venous blood specimen / Unknown Venipuncture / Unknown 02/23/2025 3:04 PM EDT 02/23/2025 3:13 PM EDT us Daniel Ralph MD LAB BLOOD ORDERABLES Final R esult Performing Organization Address City/[facility]/ZIP Co de Phone Number [facility] [address] [place] [address] * Streptococcus pneumoniae and Legionella Urinary Antigen (02/23/2025 11:05 AM EDT) Legionella pneumophila serogroup 1 Antigen Result (Urine) Negative Negative 02/24/2025 7:01 AM EDT [facility] Streptococcus pneumoniae Antigen Result (Urine) Negative Negative 02/24/2025 7:01 AM EDT [facility] Urine Urine specimen obtained by clean catch procedure / Unknown Non-blood Collection / Unknown 02/23/2025 11:05 AM EDT 02/23/2025 11:16 AM EDT Daniel Ralph MD LAB MICROBIOLOGY - GENERAL O RDERABLES Final Result [facility] [address] [place] [address] * [place] CRITICAL CARE, E/M 30-74 MINUTES (02/23/2025 9:10 [...] Plasma 25.9 ug/mL 02/23/2025 9:20 AM EDT [facility] Blood Venous blood specimen / Unknown Venipuncture / Unknown 02/23/2025 8:34 AM EDT 02/23/2025 8:50 AM EDT Daniel Ralph MD LAB BLOOD ORDERABLES Final R esult Performing Organization Address City/[facility]/ZIP Co de Phone Number [facility] [address] [place] [address] * (ABNORMAL) Nasopharyngeal Respiratory Panel (02/23/2025 2:05 AM EDT) Human Rhinovirus/Ent erovirus PCR Result Detected( A) Not Detected 02/23/2025 5:07 AM EDT [facility] Swab Nasopharyngeal structure / Unknown Non-blood Collection / Unknown 02/23/2025 2:05 AM EDT 02/23/2025 3:06 AM EDT Narrative [facility] - 02/23/2025 5:07 AM [...] Respiratory PCR Panel is performed using the J[employer]card ePlex instrument. This test is FDA approved for use with Nasopharyngeal swabs only. This test is used for clinical purposes. It should not be regarded as investigational or for research. The [facility] is certified under the Clinical Laboratory Improvement Amendments of 1988 (CLIA-88) as qualified to perform high complexity clinical laboratory testing. Daniel Ralph MD LAB MICROBIOLOGY - GENERAL O RDERABLES Final Result Performing Organization Address City/[facility]/ZIP Co de Phone Number [facility] [address] [place] [address] * (ABNORMAL) Methicillin Resistant Staphylococcus aureus (MRSA) by PCR (02/23/2025 2:05 AM EDT) [facility] [address] [facility] Methicillin Resistant Staphylococcus aureus (MRSA) by PCR Detected( A) Not Detected 02/23/2025 4:19 AM EDT [facility] Swab Both anterior nares / Unknown Non-blood Collection / Unknown 02/23/2025 2:05 AM EDT 02/23/2025 3:06 AM EDT Narrative [facility] - 02/23/2025 4:19 AM [...] [facility]/ZIP Co de Phone Number [facility] [address] [place] [address] * (ABNORMAL) Troponin T, High Sensitivity, 2 Hour, Plasma (02/23/2025 2:04 AM EDT) [facility] Troponin T, High Sensitivity, 2 Hour 37(H) <14 ng/L 02/23/2025 2:52 AM EDT [facility] Troponin Delta Interpretation Not Calculated 02/23/2025 2:52 AM EDT [facility] Comment:Specimen not collect ed within acceptable timeframe. Delta will not be calculated. Blood Venous blood specimen / Unknown Venipuncture / Unknown 02/23/2025 2:04 AM EDT 02/23/2025 2:24 AM EDT us Daniel Ralph MD LAB BLOOD ORDERABLES Final R esult Performing Organization Address City/[facility]/ZIP Co de Phone Number [facility] [address] [place] [address] * Anti Xa Level Low Molecular Weight (02/23/2025 2:04 AM EDT) Anti Xa Level Low Molecular Weight Heparin 1.12 <2.00 IU/mL LAB COAGULATION METHOD 02/23/2025 2:44 AM EDT [facility] Blood Venous blood specimen / Unknown Venipuncture / Unknown 02/23/2025 2:04 AM EDT 02/23/2025 2:24 AM EDT Narrative [facility] - 02/23/2025 2:44 AM EDT Therapeutic Range: LMWH enoxaparin 1mg/kg/dose, 12hrs - peak (3-5 hours after dose): 0.5 - 1.0 IU/mL LMWH enoxaparin 1.5mg/kg/dose, 24hrs - peak (3-5 hours after dose): 1.0 - 2.0 IU/mL LMWH enoxaparin prophylaxis: Not established Daniel Ralph MD LAB BLOOD ORDERABLES Final R esult Performing Organization Address [facility]/ZIP Co de Phone Number [facility] [address] [place] [address] * (ABNORMAL) Troponin T, High Sensitivity, 0 Hour Plasma, Reflex to 2 Hour (02/23/2025 12:05 AM EDT) Troponin T, High Sensitivity, 0 Hour 40(H) <14 ng/L 02/23/2025 12:44 AM EDT [facility] Blood Venous blood specimen / Unknown Venipuncture / Unknown 02/23/2025 12:05 AM EDT 02/23/2025 12:17 AM EDT Daniel Ralph MD LAB BLOOD ORDERABLES Final R esult Performing Organization Address [facility]/ZIP Co de Phone Number [facility] [address] [place] [address] * (ABNORMAL) Quantitative BAL/PAL/Bronch Wash Culture and Gram StainProtected Alveolar Lavage (02/23/2025 12:00 AM EDT) Culture [id number] CFU/mL Mixed upper respiratory jesus(A) 02/24/2025 12:09 PM EDT [facility] Comment:The organism value f or this result has been updated. These results have been appended to the previously preliminary verified report. Gram Stain Result Numerous Polymorphonuclear leukocytes(A) 02/24/2025 12:09 PM EDT [facility] Gram Stain Result Numerous Gram positive cocci in pairs(A) 02/24/2025 12:09 PM EDT [facility] Gram Stain Result Moderate Gram positive cocci in clusters(A) 02/24/2025 12:09 PM EDT [facility] Gram Stain Result Moderate Gram positive rods(A) 02/24/2025 12:09 PM EDT [facility] Protected Alveolar Lavage (Protected Alveolar Lavage) 02/23/2025 12:00 AM EDT 02/23/2025 1:17 AM EDT Daniel Ralph MD LAB MICROBIOLOGY - GENERAL O RDERABLES Final Result Performing Organization Address City/[facility]/[place] [address] * (ABNORMAL) N-Terminal Probnp (02/22/2025 10:03 PM EDT) Only the most recent of2 resultswithin the time period is included. N-Terminal, PROBNP, Plasma 1,542(H) 0 - 899 pg/mL 02/22/2025 10:48 PM EDT [facility] Blood Venous blood specimen / Unknown Venipuncture / Unknown 02/22/2025 10:03 PM EDT 02/22/2025 10:11 PM EDT us Bobby Parra MD LAB BLOOD ORDERABLES Final R esult [facility] [address] [place] [address] * Maira auris Surveillance by PCR (02/22/2025 10:02 PM EDT) Maira auris PCR Result Not Detected Not Detected 02/24/2025 7:03 AM EDT [facility] Swab (Axilla and Groin) Non-blood Collection / Unknown 02/22/2025 10:02 PM EDT 02/22/2025 10:16 PM EDT Narrative [facility] - 02/24/2025 7:03 AM EDT This PCR assay was developed and its performance characteristics determined by [facility] as appropriate for clinical purposes. This assay has not been cleared or approved by the FDA, but is performed in a CLIA regulated laboratory that is qualified to perform high-complexity testing. Bobby Parra MD LAB MICROBIOLOGY - GENERAL O RDERABLES Final Result Performing Organization Address [facility] Co de Phone Number [facility] [address] [place] [address] * (ABNORMAL) Multi Drug Resistance Test (02/22/2025 10:02 PM EDT) Culture Methicillin-Resist ant Staphylococcus aureus(AA) 02/24/2025 6:58 AM EDT [facility] Swab (Nares and Samantha Rectal) Non-blood Collection / Unknown 02/22/2025 10:02 PM EDT 02/22/2025 10:16 PM EDT Narrative [facility] - 02/24/2025 6:58 AM EDT This test was developed and its performance characteristics determined by the [facility]. Although the media is FDA-approved, it is not FDA-approved for all specimen types submitted. The FDA has determined that such clearance or approval is not necessary. This test is used for surveillance purposes. It should not be regarded as investigational or for research. The [facility] is certified under the Clinical Laboratory Improvement Amendments of 1988 (CLIA-88) as qualified to perform high complexity clinical laboratory testing. Bobby Parra MD LAB MICROBIOLOGY - GENERAL O RDERABLES Final Result Performing Organization Address [facility] Co de Phone Number [address] [address] * Drug abuse screen (02/22/2025 10:01 PM EDT) Amphetamine Screen Urine Negative Cutoff: 500 ng/mL 02/23/2025 12:22 AM EDT [facility] Benzodiazepines Screen Urine Negative Cutoff: 200 ng/mL 02/23/2025 12:22 AM EDT [facility] Cannabinoid Screen Urine Negative Cutoff: 50 ng/mL 02/23/2025 12:22 AM EDT [facility] Cocaine Screen Urine Negative Cutoff: 300 ng/mL 02/23/2025 12:22 AM EDT [facility] Barbiturate Screen Urine Negative Cutoff: 200 ng/mL 02/23/2025 12:22 AM EDT [facility] Opiate Screen Urine Negative Cutoff: 300 ng/mL 02/23/2025 12:22 AM EDT [facility] Methadone Screen Urine Negative Cutoff: 300 ng/mL 02/23/2025 12:22 AM EDT [facility] Buprenorphine Screen Urine Negative Cutoff: 10 ng/mL 02/23/2025 12:22 AM EDT [facility] Fentanyl Screen Urine Presumptive positive. Confirmation by LC-MS/MS to follow. Cutoff: 1 ng/mL 02/23/2025 12:22 AM EDT [facility] Oxycodone Screen Urine Negative Cutoff: 100 ng/mL 02/23/2025 12:22 AM EDT [facility] Urine Urine specimen obtained by clean catch procedure / Unknown Non-blood Collection / Unknown 02/22/2025 10:01 PM EDT 02/22/2025 10:11 PM EDT Daniel Gordillo MD LAB URINE ORDERABLES Final Result Performing Organization Address City/State/[facility] Co de Phone Number [facility] [address] [place] [address] * (ABNORMAL) Fentanyl Urine Confirm (02/22/2025 10:01 PM EDT) Fentanyl 1(H) <1 ng/mL 02/24/2025 9:18 AM EDT [facility] Norfentanyl 2(H) <2 ng/mL 02/24/2025 9:18 AM EDT [facility] Urine Urine specimen obtained by clean catch procedure / Unknown Non-blood Collection / Unknown 02/22/2025 10:01 PM EDT 02/22/2025 10:11 PM EDT Narrative [facility] - 02/24/2025 9:18 AM EDT Drug analysis is confirmed by LC-MS/MS (LC Tandem Mass Spectrometry) on Urine specimens. This test was developed and its performance characteristics determined by [facility]. It has not been cleared or approved by the FDA. The laboratory is regulated under CLIA as qualified to perform high-complexity testing. This test is used for clinical purposes. Testing is performed at the [facility], Special [facility] Laboratory. us Daniel Gordillo MD LAB URINE ORDERABLES Final Result [facility] [address] [place] [address] * (ABNORMAL) POCT arterial blood gas gem (02/22/2025 9:05 PM EDT) pH, Arterial 7.45(H) 7.31 - 7.42 02/22/2025 9:06 PM EDT [facility] pCO2, Arterial 37 35 - 48 mm Hg 02/22/2025 9:06 PM EDT [facility] pO2, Arterial 86 >80 mm Hg 02/22/2025 9:06 PM EDT [facility] SO2, Arterial 98 94 - 98 % 02/22/2025 9:06 PM EDT [facility] FIO2 60.0 % 02/22/2025 9:06 PM EDT [facility] Base Excess, Arterial 1.7 -2 - 3 mmol/L 02/22/2025 9:06 PM EDT [facility] HCO3, Arterial 25.7 22 - 26 mmol/L 02/22/2025 9:06 PM EDT [facility] Total Hemoglobin, Arterial, Whole Blood 9.1(L) 11.2 - 15.7 g/dL 02/22/2025 9:06 PM EDT [facility] Hematocrit, Arterial 27.0(L) 34.0 - 45.0 % 02/22/2025 9:06 PM EDT [facility] Sodium, Arterial 125(L) 136 - 145 mmol/L 02/22/2025 9:06 PM EDT [facility] Potassium, Arterial 4.9 3.6 - 4.9 mmol/L 02/22/2025 9:06 PM EDT [facility] Comment:Hemolyzed, result ma y be falsely increased. Chloride, Whole Blood 95(L) 97 - 107 mmol/L 02/22/2025 9:06 PM EDT [facility] Glucose, Arterial 116(H) 74 - 99 mg/dL 02/22/2025 9:06 PM EDT [facility] Ionized Calcium, Arterial 4.8 4.6 - 5.1 mg/dL 02/22/2025 9:06 PM EDT [facility] Lactate, Arterial 0.8 0.5 - 1.6 mmol/L 02/22/2025 9:06 PM EDT [facility] Body Temperature 37.0 Celsius 02/22/2025 9:06 PM EDT [facility] pH, Temp Corrected, Arterial 7.45(H) 7.31 - 7.42 02/22/2025 9:06 PM EDT [facility] pCO2, Temp Corrected, Arterial 37 35 - 48 mm Hg 02/22/2025 9:06 PM EDT [facility] pO2, Temp Corrected, Arterial 86 >80 mm Hg 02/22/2025 9:06 PM EDT [facility] Interior Design Program Chair ID Slim Morton 02/22/2025 9:06 PM EDT [facility] Blood, Arterial Whole blood specimen / Unknown 02/22/2025 9:05 PM EDT 02/22/2025 9:06 PM EDT Daniel Ralph MD LAB POINT OF CARE TE ST DOCKED DEVICE UNSOLICITED RESULTS Final Result Performing Organization Address City/State/[facility] Co de Phone Number [facility] [address] [place] [address] * Blood Culture (Aerobic/Anaerobet Set) (02/22/2025 8:55 PM EDT) Culture No growth at day 5 02/27/2025 10:01 PM EDT [facility] Blood Structure of right hand / Unknown Venipuncture / Unknown 02/22/2025 8:55 PM EDT 02/22/2025 9:29 PM EDT Narrative [facility] - 02/27/2025 10:01 PM EDT Low blood volume submitted, results may be compromised us Daniel Gordillo MD LAB MICROBIOLOGY - GENERAL ORDERABLES Final Result Performing Organization Address City/[facility]/ZIP Co de Phone Number [facility] [address] [place] [address] * Ionized calcium, serum (02/22/2025 8:36 PM EDT) Ionized Calcium, Serum 4.8 4.6 - 5.3 mg/dL LAB HEMATOLOGY METHOD 02/22/2025 9:42 PM EDT [facility] Blood Venous blood specimen / Unknown Venipuncture / Unknown 02/22/2025 8:36 PM EDT 02/22/2025 8:53 PM EDT Bobby Parra MD LAB BLOOD ORDERABLES Final R esult Performing Organization Address [facility] Co de Phone Number [facility] [address] [place] [address] * XR Chest 1 View (02/22/2025 7:05 [...] <10 <10 mg/dL 02/22/2025 8:13 PM EDT [facility] Blood Venous blood specimen / Unknown Venipuncture / Unknown 02/22/2025 6:41 PM EDT 02/22/2025 8:00 PM EDT Narrative [facility] - 02/22/2025 8:13 PM EDT Enzymatic Assay: Performed on Hector Rufus. us Daniel Gordillo MD LAB BLOOD ORDERABLES Final Result Performing Organization Address City/[facility]/ZIP Co de Phone Number [facility] [address] [place] [address] * Thyroid Stimulating Hormone, Plasma (02/22/2025 6:41 PM EDT) Thyroid Stimulating Hormone, Plasma 1.03 0.40 - 4.20 uIU/mL 02/22/2025 7:24 PM EDT [facility] Blood Venous blood specimen / Unknown Venipuncture / Unknown 02/22/2025 6:41 PM EDT 02/22/2025 6:47 PM EDT us Daniel Gordillo MD LAB BLOOD ORDERABLES Final Result Performing Organization Address City/[facility]/ZIP Co de Phone Number [facility] [address] [place] [address] * Free T4, Plasma (02/22/2025 6:41 PM EDT) Free T4, Plasma 1.3 0.8 - 1.7 ng/dL 02/22/2025 7:24 PM EDT [facility] Blood Venous blood specimen / Unknown Venipuncture / Unknown 02/22/2025 6:41 PM EDT 02/22/2025 6:47 PM EDT us Daniel Gordillo MD LAB BLOOD ORDERABLES Final Result Performing Organization Address City/[facility]/ZIP Co de Phone Number [facility] [address] [place] [address] * (ABNORMAL) Hemoglobin A1c (02/22/2025 6:41 PM EDT) Hemoglobin A1c 9.2(H) <5.7 % 02/23/2025 1:40 PM EDT [facility] Blood Venous blood specimen / Unknown Venipuncture / Unknown 02/22/2025 6:41 PM EDT 02/22/2025 6:47 PM EDT Narrative [facility] - 02/23/2025 1:40 PM EDT HA1C Interpretive Data: Diagnosis of Diabetes: Diabetic > or = 6.5% Pre-diabetic 5.7 to 6.4% Non-diabetic < or = 5.6% Glycemic Targets for Type I and Type II Diabetics: Non- Adults <7.0% Adults <6.0% Children and Adolescents <7.5% Source: [place] [employer]. Standards of medical care in diabetes,2017. Diabetes Care.2017:40 (suppl 1):S1-S135. us Bobby Parra MD LAB BLOOD ORDERABLES Final R esult [facility] [address] [place] [address] * (ABNORMAL) POCT venous blood gas gem (02/22/2025 6:37 PM EDT) pH, Venous 7.28(L) 7.32 - 7.43 02/22/2025 6:38 PM EDT [facility] pCO2, Venous 60(HH) 37 - 52 mm Hg 02/22/2025 6:38 PM EDT [facility] pO2, Venous 41(H) 25 - 40 mm Hg 02/22/2025 6:38 PM EDT [facility] SO2, Venous 72 65 - 80 % 02/22/2025 6:38 PM EDT [facility] Base Excess/Deficit, Venous 0.8 -2 - 3 mmol/L 02/22/2025 6:38 PM EDT [facility] HCO3, Venous 28.2(H) 22 - 26 mmol/L 02/22/2025 6:38 PM EDT [facility] Hemoglobin, Venous 9.2(L) 11.2 - 15.7 g/dL 02/22/2025 6:38 PM EDT [facility] Hematocrit, Venous 28.0(L) 34.0 - 45.0 % 02/22/2025 6:38 PM EDT [facility] Sodium, Venous 126(L) 136 - 145 mmol/L 02/22/2025 6:38 PM EDT [facility] Potassium, Venous 4.6 3.6 - 4.9 mmol/L 02/22/2025 6:38 PM EDT [facility] Comment:Hemolyzed, result ma y be falsely increased. POCT Chloride, Venous 94(L) 97 - 107 mmol/L 02/22/2025 6:38 PM EDT [facility] Glucose, Venous 139(H) 74 - 99 mg/dL 02/22/2025 6:38 PM EDT [facility] Ionized Calcium, Venous 4.9 4.6 - 5.1 mg/dL 02/22/2025 6:38 PM EDT [facility] Lactate, Venous 0.6 0.5 - 2.2 mmol/L 02/22/2025 6:38 PM EDT [facility] Body Temperature 37.0 Celsius 02/22/2025 6:38 PM EDT [facility] pH, Temp Corrected, Venous 7.28(L) 7.32 - 7.43 02/22/2025 6:38 PM EDT [facility] pCO2, Temp Corrected, Venous 60(HH) 37 - 52 mm Hg 02/22/2025 6:38 PM EDT [facility] pO2, Temp Corrected, Venous 41(H) 25 - 40 mm Hg 02/22/2025 6:38 PM EDT [facility] Interior Design Program Chair ID Joao Jackson 02/22/2025 6:38 PM EDT [facility] Blood, Venous Whole blood specimen / Unknown 02/22/2025 6:37 PM EDT 02/22/2025 6:38 PM EDT us Generic Provider Poct LAB POINT OF CARE TEST DOCKED DEVICE UNSOLICITED RESULTS Final Result Performing Organization Address City/State/[facility] Co de Phone Number [facility] [address] [place] [address] * INTUBATION (02/22/2025 6:13 PM EDT) Narrative [...] position Post-procedure details: Procedure completion: Tolerated us Daniel Gordillo MD IN CLINIC/BEDSIDE ORDERABLE S Final Result * XR OUTSIDE IMAGES (02/22/2025 12:54 PM EDT) Anatomical Region Laterality Modality Radiographic Alysa ging 02/22/2025 12:5 4 PM EDT us Jordan Carl MD IMG XR PROCEDURES Final Result * CT OUTSIDE IMAGES (02/22/2025 12:48 PM EDT) Only the most recent of3 resultswithin the time period is included. 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 Reformatted images in the coronal [...] MD on 01/03/2025 3:33 PM Cayla Erazo CONDUCTOR YARD, DNP IMG CT PROCEDURES Final Result * [...] are demonstrated at the levels of the FLEXIBLE SHAFT WINDER, COMPLIANCE QUALITY PERFORMANCE ANALYST and DPA. Segmental pressures are within normal limits with a COMPLIANCE QUALITY PERFORMANCE ANALYST JASEN of 0.98 (138 mmHg) and a DPA JASEN of 1.28 (181 mmHg). Digit pressures are 115 mmHg. Left: AKA is noted. Multiphasic waveforms are demonstrated at the level of the FLEXIBLE SHAFT WINDER. 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 COMPARISON: None. FINDINGS: Right: Multiphasic waveforms are demonstrated at the levels of the FLEXIBLE SHAFT WINDER,COMPLIANCE QUALITY PERFORMANCE ANALYST and DPA. Segmental pressures are within normal limits with a COMPLIANCE QUALITY PERFORMANCE ANALYST ABIof 0.98 (138 mmHg) and a DPA JASEN of 1.28 (181 mmHg). Digit pressures [id number] mmHg. Left: AKA is noted. Multiphasic waveforms are demonstrated at the level ofthe FLEXIBLE SHAFT WINDER. IMPRESSION: Right: Normal study; No evidence of [...] * INJECTION FOR BLADDER XRAY WITHOUT VOIDING, MN COMPLEX CYSTOMETROGRAM W/VOID PRESS&URETHRAL PROFILE, UROLOGY UDS WITH BASE PERFORMABLE CHARGES (12/20/2024 10:28 AM EDT) Narrative Cayla Erazo APRN, DNP - 12/20/2024 10:28 AM EDT Cayla Erazo APRN, DNP 01/04/2025 2:40 PM UDS Date/Time: 12/20/2024 10:28 AM Performed by: Cayla Erazo APRN, DNP Authorized by: Cayla Erazo APRN, DNP [place] Protocol: Time out called at: 12/20/2024 10:28 [...] OF CARE ULTRASOUND F inal Result * Hepatitis C Antibody - ED (08/15/2024 5:35 AM EST) Hepatitis C Antibody Negative Negative 08/15/2024 7:08 AM EST [facility] Blood Venous blood specimen / Unknown Venipuncture / Unknown 08/15/2024 5:35 AM EST 08/15/2024 6:06 AM EST Marcy Zhong MD LAB BLOOD ORDERABLES Final Resu lt [facility] [address] [place] [address] * Cytology (04/10/2013 12:00 AM EDT) Specimen from axilla structure obtained by fine needle aspiration biopsy (specimen) 04/10/2013 04/10/2013 2:2 3 PM EDT Narrative [facility] - 04/10/2013 3:59 PM EDT [facility] MR #: [id number] [facility] [address] [place], [place] [address] 1960 (Age: 52) FW Collect Date: 04/10/2013 00:00 Receipt Date: 04/10/2013 14:23 Page 1 DEPARTMENT OF PATHOLOGY AND LABORATORY MEDICINE CYTOPATHOLOGY REPORT Email: [email or web address] ATTENDING MD/Practitioner: Kimmie Aguilera MD Service: BCC [...] w/ 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 Jonatan [...] RECEPTOR POSITIVE STATUS (ER POSITIVE) F: A; 23472 ASP INTER, 02618, 01394 SNOMED CODES: A; M51034 H61788 Y21141 E85759 N09570 JU4399 P1149 NA0056 A resident has participated in this service. A pathologist has performed and is responsible for the reported pathologic evaluation. 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 Yes Care Teams Pattern Illustrator Relationship Specialty Start Date End Date Vignesh Pickens MD [address] [place] [address] PCP - General 12/31/24 Cayla Erazo APRN, DNP [address] [facility] [place] [address] Nurse Practitioner Urology 12/20/24
--- OUTSIDE RECORDS SUMMARY | 2025-03-13 11:17 | XMS_ITS | Clinical Summary ---
Author Organization [facility] Address [address] [place] [address] Phone Care Team Providers Care Verifying Machine Operator Name Role Phone Foreign Spangler MD, Andrei Kalida Primary Care Provid er Allergies No known [...] [place] A AND B [place] [id number] Care Teams Verifying Machine Operator Relationship Specialty Start Date End Date Andrei Carrasquillo Sr., MD [address] [place] [address] PCP - General Production Team Member 03/17/16
--- OUTSIDE RECORDS SUMMARY | 2025-03-13 11:17 | XMS_ITS | Encounter Summary ---
Author Organization [facility] Address [address] [place] [address] Care Team Providers Care Carbonator Name Role Phone Cayla Erazo APRN, DNP Unavailable [phone] Vignesh Pickens MD Primary Care Provider [phone] Encounter Details Date Type Department Care Team (Late st Contact Info) Description 01/17/2025 Telephone [facility] [address] [place] [address] Ceci Mitchell MD [address] [place] [address] Social History Tobacco Use Types [...] drink first t rodríguez in the morning (EYE-DRAFTING LAYOUT WORKER) to steady your nerves or to [...] Info) Description 03/27/2025 10:30 AM EDT Appointment [facility] Ultrasound [address] [place] [address] 03/27/2025 11:50 AM EDT Clinical Support Medical [facility] Building Lab [address] [place] [address] 03/27/2025 1:00 PM EDT Office Visit Medical Office Building Urology [address] [facility], [address] [place] [address] Cayla Erazo, SPECIAL EDUCATION PRESCHOOL TEACHER, DNP [address] [place] [address] 05/16/2025 8:00 AM EDT Office Visit [facility] [place] [address] [facility], [address] [place] [address] Karly Gracia MD [address] [place] [address] 06/07/2025 1:00 PM EDT Office Visit [facility] [address] [place] [address] Tom Iraheta MD [address] [place] [address] Scheduled Orders Name Type Priority [...] documented as of this encounter Care Teams Carbonator Relationship Specialty Start Date End Date Vignesh Pickens MD [address] [place] [address] PCP - General 12/31/24 Cayla Erazo APRN, FREDERICK [address] [facility] [address] [place] [address] Nurse Practitioner Urology 12/20/24 documented as of this encounter
--- OUTSIDE RECORDS SUMMARY | 2025-03-13 11:17 | XMS_ITS | Encounter Summary ---
Author Organization [facility] Address [address] [place] [address] Care Team Providers Care Resident Care Assistant Name Role Phone Cayla Erazo APRN, DNP Unavailable [phone] Vignesh Pickens MD Primary Care Provider [phone] Encounter Details Date Type Department Care Team [...] drink first t rodríguez in the morning (EYE-SOUND TECHNICIAN SUPERVISOR) to steady your nerves or to [...] Info) Description 03/27/2025 10:30 AM EDT Appointment [facility] Ultrasound [address] [place] [address] 03/27/2025 11:50 AM EDT Clinical Support Medical Office Building Lab [address] [place] [address] 03/27/2025 1:00 PM EDT Office Visit Medical Office Building Urology [address] [facility], [address] [place] [address] Cayla Erazo, PRODUCT MANAGEMENT SPECIALIST, DNP [address] [place] [address] 05/16/2025 8:00 AM EDT Office Visit [facility] [place] [address] [facility], [address] [place] [address] Karly Gracia MD [address] [place] [address] 06/07/2025 1:00 PM EDT Office Visit [facility] [address] [facility] [address], [place] [address] Tom Iraheta MD [address] [place] [address] documented as of this encounter [...] documented as of this encounter Care Teams Resident Care Assistant Relationship Specialty Start Date End Date Vignesh Pickens MD [address] [place] [address] PCP - General 12/31/24 Cayla Erazo APRN, FREDERICK [address] [place] [address] Nurse Practitioner Urology 12/20/24 documented as of this encounter
--- OUTSIDE RECORDS SUMMARY | 2025-03-13 11:17 | XMS_ITS | Encounter Summary ---
Author Organization [facility] Address [address] [place] [address] Care Team Providers Care Simonizer Name Role Phone Daniel Barba MD Primary Care Provider [phone] Judy Huff FOREIGN SERVICE OFFICER Unavailable Unavailabl e Cayla Erazo APRN, DNP Unavailable [phone] Vignesh Pickens MD Primary Care Provider [phone] Encounter Details Date Type Department Care Team (Late st Contact Info) Description 07/28/2022 Orders Only External Location [address] [place] [address] Gregg Morgan MD [address] [place], [place] [id number] Social History Tobacco Use Types Packs/Day Years [...] Info) Description 03/27/2025 10:30 AM EDT Appointment [facility] Ultrasound [address] [place] [address] 03/27/2025 11:50 AM EDT Clinical Support Medical Office Building Lab [address] [place] [address] 03/27/2025 1:00 PM EDT Office Visit Medical Office Building Urology [address] [facility], [address] [place] [address] Cayla Erazo, RN ANESTHESIOLOGY, DNP [address] [place] [address] 05/16/2025 8:00 AM EDT Office Visit [facility] [place] [address] [facility], [address] [place] [address] Karly Gracia MD [address] [place] [address] 06/07/2025 1:00 PM EDT Office Visit [facility] [address] [facility] [address] [place] [address] Tom Iraheta MD [address] [place], [place] [...] documented as of this encounter Care Teams Simonizer Relationship Specialty Start Date End Date Daniel Barba MD [address] [place] [address] PCP - General 01/02/21 12/30/24 Vignesh Pickens MD [address] [place] [address] PCP - General 12/31/24 Judy Huff, JHONNY [facility] Nurse 08/24/24 08/24/24 Cayla Erazo, LIZANDRO, FREDERICK [id number] [place] [address] Nurse Practitioner Urology 12/20/24 documented as of this encounter
--- OUTSIDE RECORDS SUMMARY | 2025-03-13 11:17 | XMS_ITS | Encounter Summary ---
Author Organization [facility] Address [address] [place] [address] Care Team Providers Care Production Checker Name Role Phone Cayla Erazo APRN, DNP Unavailable [phone] Vignesh Pickens MD Primary Care Provider [phone] Encounter Details Date Type Department Care Team [...] drink first t rodríguez in the morning (EYE-PURCHASE REQUEST EDITOR) to steady your nerves or to [...] Info) Description 03/27/2025 10:30 AM EDT Appointment [facility] Ultrasound [address] [place] [address] 03/27/2025 11:50 AM EDT Clinical Support Medical Office Building Lab [address] [place] [address] 03/27/2025 1:00 PM EDT Office Visit Medical Office Building Urology [address] [facility], [address] [place] [address] Cayla Erazo, LABORER WRECKING AND SALVAGING, DNP [address] [place] [address] 05/16/2025 8:00 AM EDT Office Visit [facility] [place] [address] [facility], [address] [place] [address] Karly Gracia MD [address] [place] [address] 06/07/2025 1:00 PM EDT Office Visit [facility] [address] [place] [address] Tom Iraheta MD [address] [place] [address] documented as of this encounter [...] documented as of this encounter Care Teams Production Checker Relationship Specialty Start Date End Date Vignesh Pickens MD [address] [place] [address] PCP - General 12/31/24 Cayla Erazo APRN, FREDERICK [address] [facility] [address] [place] [address] Nurse Practitioner Urology 12/20/24 documented as of this encounter
--- OUTSIDE RECORDS SUMMARY | 2025-03-13 11:17 | XMS_ITS | Encounter Summary ---
Author Organization [facility] Address [address] [place] [address] Care Team Providers Care Quality Specialist Name Role Phone Cayla Erazo APRN, DNP Unavailable [phone] Vignesh Pickens MD Primary Care Provider [phone] Encounter Details Date Type Department Care Team (Late st Contact Info) Description 01/23/2025 Telephone [facility] [address] [place] [address] Ceci Mitchell MD [address] [place] [address] Social History Tobacco Use [...] drink first t rodríguez in the morning (EYE-MECHANIST) to steady your nerves or to get [...] Info) Description 03/27/2025 10:30 AM EDT Appointment [facility] Ultrasound [address] [place] [address] 03/27/2025 11:50 AM EDT Clinical Support Medical Office Building Lab [address] [place] [address] 03/27/2025 1:00 PM EDT Office Visit Medical Office Building Urology [address] [facility], [address] [place] [address] Cayla Erazo, CURB SETTER, DNP [address] [place] [address] 05/16/2025 8:00 AM EDT Office Visit [facility] [place] [address] [facility], [address] [place] [address] Karly Gracia MD [address] [place] [address] 06/07/2025 1:00 PM EDT Office Visit [facility] [address] [place] [address] Tom Iraheta MD [address] [place] [address] documented as of this encounter [...] as of this encounter Care Teams Quality Specialist Relationship Specialty Start Date End Date Vignesh Pickens MD [address] [place] [address] PCP - General 12/31/24 Cayla Erazo APRN, FREDERICK [address] [facility] [address] [place] [address] Nurse Practitioner Urology 12/20/24 documented as of this encounter
--- OUTSIDE RECORDS SUMMARY | 2025-03-13 11:17 | XMS_ITS | Encounter Summary ---
Author Organization [facility] Address [address] [place] [address] Care Team Providers Care Campus President Name Role Phone Daniel Barba MD Primary Care Provider [phone] Judy Huff TELECOMMUNICATIONS SUPPORT Unavailable Unavailabl Cayla Louie APRN, DNP Unavailable [phone] Vignesh Pickens MD Primary Care Provider + [phone] Encounter Details Date Type Department Care Team (Late Contact Info) Description 08/11/2022 Orders Only External Location [address] [place] [address] Provider, External Social History Tobacco Use Types [...] Department Care Team (Late Contact Info) Description 03/27/2025 10:30 AM EDT Appointment [facility] Ultrasound [address] [place] [address] 03/27/2025 11:50 AM EDT Clinical Support Medical Office Building Lab [address] [place] [address] 03/27/2025 1:00 PM EDT Office Visit Medical Office Building Urology [address] [facility], [address] [place] [address] Cayla Erazo APRN, DNP [address] [place] [address] 05/16/2025 8:00 AM EDT Office Visit [facility] [place] [address] [facility], [address] [place] [address] Karly Grcaia MD [address] [place] [address] 06/07/2025 1:00 PM EDT Office Visit [facility] [address] [facility] [address] [place] [address] Tom Iraheta MD [address] [place], [...] documented as of this encounter Care Teams Campus President Relationship Specialty Start Date End Date Daniel Barba MD [address] [place] [address] PCP - General 01/02/21 12/30/24 Vignesh Pickens MD [address] [place] [address] PCP - General 12/31/24 Judy Huff LPN [facility] Nurse 08/24/24 08/24/24 Cayla Erazo APRN, FREDERICK [address] [address] Nurse Practitioner Urology 12/20/24 documented as of this encounter
--- OUTSIDE RECORDS SUMMARY | 2025-03-13 11:18 | XMS_ITS | Encounter Summary ---
Author Organization [facility] Address [address] [place] [address] Care Team Providers Care System Engineer Name Role Phone Cayla Erazo APRN, FREDERICK Unavailable iVgnesh Pickens MD Primary Care Provider [phone] Encounter Details Date Type Department Care Team (Late st Contact Info) Description 03/04/2025 Results Follow-Up [facility] Medicine Virtual Dept. [address] [place] [address] Madonna Singleton MD [address] [place] [address] Social History Tobacco Use Types Packs/Day Years [...] drink first t rodríguez in the morning (EYE-CAMPUS AMBASSADOR) to steady your nerves or to get [...] hopeless Not at all 03/07/2025 10:14 AM EDT Shruthi Mauricio LPN Patient Health Questionnaire-2 Score [...] Mauricio LPN documented as of this encounter Plan of Treatment Upcoming Encounters Date Type Department Care Team (Late st Contact Info) Description 03/27/2025 10:30 AM EDT Appointment [facility] Ultrasound [address] [place] [address] 03/27/2025 11:50 AM EDT Clinical Support Medical Office Building Lab [address] [place] [address] 03/27/2025 1:00 PM EDT Office Visit Medical Office Building Urology [address] [facility], [address] [place] [address] Cayla Erazo APRN, DNP [address] [place] [address] 05/16/2025 8:00 AM EDT Office Visit [facility] [place] [address] [facility], [address] [place] [address] Karly Gracia MD [address] [place] [address] 06/07/2025 1:00 PM EDT Office Visit [facility] [address] [place] [address] Tom Iraheta MD [address] [place] [address] documented as of this encounter [...] documented as of this encounter Care Teams System Engineer Relationship Specialty Start Date End Date Vignesh Pickens MD [address] [place] [address] PCP - General 12/31/24 Cayla Erazo APRN, DNP [address] [place] [address] Nurse Practitioner Urology 12/20/24 documented as of this encounter
--- OUTSIDE RECORDS SUMMARY | 2025-03-13 11:18 | XMS_ITS | Encounter Summary ---
Author Organization [facility] Address [address] [place] [address] Care Team Providers Care Associate Genetics Professor Name Role Phone Cayla Erazo APRN, DNP Unavailable [phone] Vignesh Pickens MD Primary Care Provider [phone] Encounter Details Date Type Department Care Team [...] drink first t rodríguez in the morning (EYE-LABORATORY ASSISTANT) to steady your nerves or to [...] No 025 7:35 PM EDT Daniela Mcbride, RN 2. Non-Specific Active Suici annie Thoughts (Past 1 Month) No 02/24/2025 7:35 PM EDT Daniela Mcbride, RN 6. Suicidal Behavior (Lifetime) No 7:35 PM EDT Daniela Mcbride, JIMI documented as of this encounter Plan of Treatment Upcoming Encounters Date Type Department Care Team (Late st Contact Info) Description 03/27/2025 10:30 AM EDT Appointment [facility] Ultrasound [address], [address] [place] [address] 03/27/2025 11:50 AM EDT Clinical Support Medical Office Building Lab [address] [place] [address] 03/27/2025 1:00 PM EDT Office Visit Medical Office Building Urology [address] [facility], [address] [place] [address] Cayla Erazo, CLINICAL INFORMATICS DIRECTOR, DNP [address] [place] [address] 05/16/2025 8:00 AM EDT Office Visit [facility] [place] [address] [facility], [address] [place] [address] Karly Gracia MD [address] [place] [address] 06/07/2025 1:00 PM EDT [facility] [address] [place] [address] Tom Iraheta MD [address] [place] [address] documented as of this encounter [...] documented as of this encounter Care Teams Associate Genetics Professor Relationship Specialty Start Date End Date Vignesh Pickens MD [address] [place] [address] PCP - General 12/31/24 Cayla Erazo APRN, DNP [address] [facility] [address] [place] [address] Nurse Practitioner Urology 12/20/24 documented as of this encounter
--- OUTSIDE RECORDS SUMMARY | 2025-03-13 11:18 | XMS_ITS | Encounter Summary ---
Author Organization [facility] Address [address] [place] [address] Care Team Providers Care Health Unit Supervisor Name Role Phone Cayla Erazo APRN, DNP Unavailable [phone] Vignesh Pickens MD Primary Care Provider [phone] Encounter Details Date Type Department Care Team [...] any time in the past 12 m [facility], were you homeless or living [...] drink first t rodríguez in the morning (EYE-INTERIOR DESIGN PROGRAM CHAIR) to steady your nerves or to get [...] Info) Description 03/27/2025 10:30 AM EDT Appointment [facility] Ultrasound [address]nd [place] [address] 03/27/2025 11:50 AM EDT Clinical Support Medical Office Building Lab [address] [place] [address] 03/27/2025 1:00 PM EDT Office Visit Medical Office Building Urology [address] [facility], [address] [place] [address] Cayla Erazo, SQUIRREL MAN, DNP [address] [place] [address] 05/16/2025 8:00 AM EDT Office Visit [facility] [place] [address] [facility], [address] [place] [address] Karly Gracia MD [address] [place] [address] 06/07/2025 1:00 PM EDT Office Visit [facility] [address] [facility] [address] [place] [address] Tom Iraheta MD [address] [place] [address] documented as of this encounter [...] as of this encounter Care Teams Health Unit Supervisor Relationship Specialty Start Date End Date Vignesh Pickens MD [address] [place] [address] PCP - General 12/31/24 Cayla Erazo APRN, FREDERICK [address] [facility] [address] [place] [address] Nurse Practitioner Urology 12/20/24 documented as of this encounter
--- OUTSIDE RECORDS SUMMARY | 2025-03-13 11:18 | XMS_ITS | Data Portability ---
Author Organization [facility] Address [address] [facility] [address] [place] [address] Assessment No assessment recorded. Plan of Treatment [...] 08/11/2022 XR, knee, 3 view [place] [facility] [place] [address] [address] Luis t Name: ZEV Peñaloza LATONIAHENOK YOANNA Patikvng [...] Franky wray MD on 2021 10:53 AM [email or web address] [facility] Radiology [place] [address], [place], [address], 08/19/2022 08:22:02 09/01/19 23 09/01/2022 MRI, knee, w/wo contr ast [facility] [address] [place] [address] Patien t Name: ZEV TRAORE CK Patien [...] admini strati on of 10cc Gadavi st ([facility] [address]-0 2), there is conflu ent periph [...] Franky wray MD on 023 12:20 PM [email or web address] [facility] Radiology [facility] [address] [place] [address], [address], 09/22/2022 08:42:27 09/01/19 23 09/01/2022 MRI, knee, w/wo contr ast [address] [address] [place] NDUM #1 Patien t Name: ZEV [...] admini strati on of 10cc Gadavi [address] ([facility] [address]- 0325-0 2), there is conflu ent periph [...] Franky wray MD on 023 12:20 PM [email or web address] [facility] [address] [place], [address], 09/22/2022 08:42:28 09/27/19 24 09/27/2023 [facility]R, knee, [facility] [address] [facility] [place] [address] Luis t Name: ZEV stoner : [phone] [...] wray MD on 09/27/19 24 3:46 PM [email or web address] [facility] [place] [address] , [place], [address], 09/28/2023 16:18:54 Result Notes Documentation Provider Name and Address Organization Details Recorded Time Xr, Knee, 3 View : [facility] [address] [place] [address] Patient Name: EILEEN MAY Patient : 1960 [...] By: Arthur Pepe MD HI HOUGH PA-C [address] [place] [address], [address], [facility] 08/19/2022 08:22:02 Mri, Knee, W/wo Contrast : [facility] [address] [place] [address] ADDENDUM #1 Patient Name: EILEEN MAY Patient [...] AP. After intravenous administration of 10cc Gadavist ([facility] [address]-27), there is confluent peripheral enhancement of this [...] By: Arthur Pepe MD HI HOUGH PA-C [address] [place] [address], [address], [facility] 09/22/2022 08:42:28 Mri, Knee, W/wo Contrast : [address] [address] Patient Name: EILEEN MAY Patient : 1960 Patient Ordering Provider: SARAHI HOUGH EXAM DATE: 09/01/2022 EXAM: [facility] KNEE MARS W/WO CONTRAST HISTORY: 62-year-old female [...] AP. After intravenous administration of 10cc Gadavist ([facility] [address]-32), there is confluent peripheral enhancement of this [...] Arthur Pepe MD HI HOUGH PA-C [address] [place], [address], [facility] 09/22/2022 08:42:27 Xr, Knee, 3 View : [facility] [address] [place] [address] Patient Name: EILEEN MAY Patient : 1960 [...] Interpreted By: Arthur Pepe MD STORY PA-C [address] [place] [address], [address], [facility] 09/28/2023 16:18:54 Problems Name Problem SNOMED Code Status Onset Date Resolution Date Notes Provider Name and Address Organization Details Recorded Time Prostheti c joint infection 207750560 Active 2015 From Automated Load;Prov ider: Suzie Guerrier;St atus: Active Gayle Mckeon 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 4 08:21:42 Type 2 diabetes mellitus without complicat ion 241326696 Active 2015 From Automated Load;Prov ider: Pooja Ricketts; Status: Active Gayle Mckeon [facility] 4 08:21:42 Hypertens qiana disorder 34213100 Active 2015 From Automated Load;Prov ider: Pooja Ricketts; Status: Active Gayle Mckeon [facility] 4 08:21:42 Venous embolism 003919909 Active 2015 From Automated Load;Prov ider: Pooja Ricketts; Status: [facility] 08:21:42 Deep venous thrombosi s of lower extremity 718770216 Active 2015 From Automated Load;Prov ider: Pooja Ricketts; Status: [facility] 4 08:21:42 Anemia 312245876 Active 2015 From Automated Load;Prov ider: Aislinn Robin;St atus: Active Gayle Mckeon [facility] 4 08:21:42 Coronary arteriosc lerosis in southern ute artery 351734751187 7 Active 2015 From Automated Load;Prov ider: Aislinn Robin; atus: [facility] 4 08:21:41 Prostheti c joint infection 229582122 [place] [address] [place] [address], [address], [facility] 4 11:50:07 Problem Notes None recorded. Procedures Surgical History Date Name Laterality Status Provider Name and Address Organization Details Recorded Time 4 Aspiration Joint/Bursa, Major completed LISA STORY PA-C [address] [place], [address], [facility] 09/27/2023 16:07:18 Imaging Results None recorded. Procedure Notes None recorded. Medical Equipment None Reported. Allergies Allergen ID Allergen Name Allergen Category Reaction Reaction Severity Criticality Documentation Date Start Date Code Code System Note Provider Name and Address Organization Details Recorded Time 188764 Substance with sulfonami de structure and antibacte rial mechanism of action (substanc e) medicatio n Not available Not available Not available 07/16/20162015 59992 8003 SNOMED Comme nt: Creat ed By: Simone salinas;Cre ated Date: 2015 2:50: 12 PM; Not Available [facility] 6 09:33:23 644590 Wellbutri n medicatio n Not available Not available Not available 07/16/20162015 91431 RxNorm Comme nt: Creat ed By: Simone salinas;Cre ated Date: 2015 2:50: 46 PM; Not Available [facility] 6 09:47:17 509192 acetamino phen / hydrocodo ne medicatio n Not available Not available Not available 07/16/20162015 65771 2 RxNorm Comme nt: Creat ed By: Simone salinas;Cre ated Date: 2015 2:50: 59 PM; Not Available [facility] 6 09:47:18 794793 Ultram medicatio n Not available Not available Not available 07/16/20162015 57341 6 RxNorm Comme nt: Creat ed By: Simone lockhartCre ated Date: 2015 2:51: 14 PM; Not Available [facility] 6 10:10:25 Medications Name Sig Start Date [...] for 10 days. 08/11 completed Mailed to [facility] , [address] [place] [address] Not Available Not Available Not Available doxycycli [...] Updated DateTime 09/01/2022 162.56 cm 37.6 kg/m2 58086.73 g [facility] 09/01/2022 12:30:28 Date Recorded Body height Provider Name an d Address Organization Details Last Updated DateTime 09/27/2023 162.56 cm [facility] 0 09/27/2023 14:45:54 Date Recorded Body height Pain severity - 0-10 verbal numeric rating [Score] - Reported Provider Name and Address Organization Details Last Updated DateTime 10/25/2023 162.56 cm 8 [facility] 10/25/2023 11:47:50 Date Recorded Body weight Body mass index (BMI) Body height Pain severity - 0-10 verbal numeric rating [Score] - Reported Provider Name and Address Organization Details Last Updated DateTime 08/11/2022 13960.73 g 37.6 kg/m2 162.56 cm 8 [facility] 08/11/2022 11:07:58 Social History None recorded. Functional Status None recorded. Mental Status None recorded. Family History Nothing Reported. 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 No medical history recorded. Gynecological HistoryNo gynecological history recorded. 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 She states she has had purulent [...] surgical discussion once Synovasure analysis is completed. [id number] SUZIE Richards MD [facility] [address] [place] [address] 10/25/2023 11:27:50 10/25/2023 13:02:53 Prosthetic joint infection 148259170 T84.54XS ASSESSMENT : Chronic recurrent PJI left TKA, status post previous two-stage revision, staph artemio s PLAN: Eileen has clear evidence of recurrent loosening of her femoral component. 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 This has been chronic, despite oral suppressio n. Given her numerous comorbidit ies, and minimal ambulatory status, our recommenda tion continues to be for above-knee amputation . This recommenda tion has been echoed by colleagues at [facility] orthopedic s. At this point, Malathi is amenable to amputation . I have discussed her case with Dr. Will garcia, who has kindly agreed to assist us with the procedure. We will coordinate with his office regarding surgical scheduling , but tentative plan for above-knee amputation on December 08 at [facility]. From a technical standpoint , we [...] were answered to the best my ability. [id number] SUZIE Richards MD SURGERY SCHEDULE [address] [place] [address] 12/14/2023 08:58:40 12/16/2023 10:03:36 Health Concerns [...] HEALTH CHOICES - FFS/TRADITION AL Eileen May [id number] Eileen May 10/12/2023 2 [place] HEALTH CHOICES - FFS/TRADITION AL Eileen May [id number] Eileen May 10/12/2023 [facility] Eileen May [id number] Eileen May 12/06/2023 [facility] Eileen May [id number] Eileen May Notes Date Note Type Note Provider Name and Address Organization Details Recorded Time 08/11/2022 text/html [id number] e is 5 years S/P L TKA preformed in January of 2016. She returns with no pain or concerns to her TKA. She does have a visable nodule to anterior aspect of knee that is painful to touch 8/10 and she feels is causing her difficulty walking. She is inpatient at [facility] and comes ambualtign in wheelchair today. Patient does have known history of prosthetic joint infection 2016 that they require revision with two-stage revision performed Dr. Rodriguez. Infection was Staphylococcus. She is maintained on doxycycline 100 mg 3 tablets twice daily by Dr. Murdock has been on this ever since 2016. She does tolerate the medication okay. She reports no pain inside the knee with no obvious swelling but does report large nodule of the anterior aspect just below her knee. The area is painful to touch. No warmth. No fluctuance. She is here today for evaluation and treatment options. SARAHI HOUGH PA-C [address] [place], [address], [facility] 08/11/2022 13:06:31 09/01/2022 text/html 09/01/2022sSebastian May is 5 years S/P L TKA preformed in January of 2016 returns to discuss [place] MRI results. She comes to appointment accompanied by caregiver from [facility]. She remains using wheelchair. Since last visit [...] Murdock has been on this ever since 2016. She is taking tylenol 500 mg b.i.d for pain with no benefit. [id number] is 5 years S/P L TKA preformed in January of 2016. She returns with no pain or concerns to her TKA. She does have a visable nodule to anterior aspect of knee that is painful to touch 8/10 and she feels is causing her difficulty walking. She is inpatient at [facility] and comes ambualtign in wheelchair today. Patient [...] evaluation and treatment options. SARAHI HOUGH PA-C [address] [place], [address], [facility] 09/01/2022 13:56:37 09/27/2023 text/html 09/27/23 Mrs. May is present for routine evaluation of L TKA 02/18/2016. She comes to appointment accompanied by caregiver from [facility]. Patient does have known history of prosthetic [...] 5/325 mg b.i.d PRN LISA STORY PA-C [address] [place], [address], [facility] 09/27/2023 16:09:08 10/25/2023 text/html [id number] returns today in follow-up for her chronic [...] that cultures from her index operation were MRSE, however. We reviewed this at her last visit with Lisa about a month ago. Shortly thereafter, she was readmitted to [facility] in acute renal failure. That improved [...] comes to appointment accompanied by caregiver from [facility]. Patient does have known history of prosthetic [...] in January of 2016 returns to discuss [place] MRI results. She comes to appointment accompanied by caregiver from [facility]. She remains using wheelchair. Since last visit she voices increased swelling that since subsided with use of elevation and ICE but increased pain severity of 7/10 especially when trying to bear weight. 35-37-58blatizfhv is 5 years S/P L TKA preformed in January of 2016. She returns with no pain or concerns to her TKA. She does have a visable nodule to anterior aspect of knee that is painful to touch 8/10 and she feels is causing her difficulty walking. She is inpatient at [facility] and comes ambualtign in wheelchair today. Patient [...] and treatment options. SUZIE RODRIGUEZ MD [address] [place], [address], [facility] 10/30/2023 11:53:31 OBGyn Episode No OBEpisode recorded.
--- OUTSIDE RECORDS SUMMARY | 2025-03-13 11:18 | XMS_ITS | Encounter Summary ---
Author Organization [facility] Address [address] [place] [address] Care Team Providers Care Batch And Furnace Manager Name Role Phone Cayla Erazo APRN, DNP Unavailable [phone] Vignesh Pickens MD Primary Care Provider [phone] Encounter Details Date Type Department Care Team (Late st Contact Info) Description 02/22/2025 Orders Only External Location [address] [place] [address] Jordan Carl MD [address] [place] [address] [place] [address] Social History Tobacco Use Types [...] drink first t rodríguez in the morning (EYE-PRODUCTION SUPERINTENDENT HYDRO) to steady your nerves or to get [...] (Lifetime) No 8:00 AM EDT Bassem Jay, JIMI documented as of this encounter Plan of Treatment Upcoming Encounters Date Type Department Care Team (Late st Contact Info) Description 03/27/2025 10:30 AM EDT Appointment [facility] Ultrasound [address] [place] [address] 03/27/2025 11:50 AM EDT Clinical Support Medical Office Building Lab [address] [place] [address] 03/27/2025 1:00 PM EDT Office Visit Medical Office Building Urology [address] [facility], [address] [place] [address] Cayla Erazo, MANAGER SIX SIGMA, DNP [address] [place] [address] 05/16/2025 8:00 AM EDT Office Visit [facility] [place] [address] [facility], [address] [place] [address] Karly Gracia MD [address] [place] [address] 06/07/2025 1:00 PM EDT Office Visit [facility] [address] [place] [address] Tom Iraheta MD [address] [place] [address] documented as of this encounter [...] documented as of this encounter Care Teams Batch And Furnace Manager Relationship Specialty Start Date End Date Vignesh Pickens MD [address] [place] [address] PCP - General 12/31/24 Cayla Erazo APRN, DNP [address] [place] [address] Nurse Practitioner Urology 12/20/24 documented as of this encounter
--- OUTSIDE RECORDS SUMMARY | 2025-03-13 11:18 | XMS_ITS | Encounter Summary ---
Author Organization [facility] Address [address] [place] [address] Care Team Providers Care Taco Maker Name Role Phone Cayla Erazo APRN, DNP Unavailable [phone] Vignesh Pickens MD Primary Care Provider [phone] Encounter Details Date Type Department Care Team (Latest Contact Info) Description 03/07/2025 Travel Social History Tobacco Use Types Packs/Day [...] drink first t rodríguez in the morning (EYE-TERMINAL OPERATIONS MANAGER) to steady your nerves or [...] Health Questionnaire-2 Score 0 03/07/2025 10:14 AM EDT Shruthi Mauricio LPN * If you checked [...] Info) Description 03/27/2025 10:30 AM EDT Appointment [facility] Ultrasound [address], 2nd [place] [address] 03/27/2025 11:50 AM EDT Clinical Support Medical Office Building Lab [address] [place] [address] 03/27/2025 1:00 PM EDT Office Visit Medical Office Building Urology [address] [facility], [address] [place] [address] Cayla Erazo, EXCAVATION LABORER, DNP [address] [place] [address] 05/16/2025 8:00 AM EDT Office Visit [facility] [place] [address] [facility], [address] [place] [address] Karly Gracia MD [address] [place] [address] 06/07/2025 1:00 PM EDT Office Visit [facility] [address] [place] [address] Tom Iraheta MD [address] [place] [address] documented as of this encounter [...] documented as of this encounter Care Teams Taco Maker Relationship Specialty Start Date End Date Vignesh Pickens MD [address] [place] [address] PCP - General 12/31/24 Cayla Erazo APRN, DNP [address] [place] [address] Nurse Practitioner Urology 12/20/24 documented as of this encounter
--- OUTSIDE RECORDS SUMMARY | 2025-03-13 11:18 | XMS_ITS | Clinical Summary ---
Author Organization [employer] ([place], [place], [place], [place]) Address [address] [place] [address] Care Team Providers Care Button And Buckle Maker Name Role Phone [facility], [...] Do you speak a language other than [place] Islander at ho me? No 12/09/2023 Do you [...] A1C 11.7 % 11/25/2023 5:31 PM EDT [facility] Comment: Hemoglobin A1C levels are related to mean glucose during the preceding 2-3 months. Less than 7% demonstrates glycemic control in diabetic patients. Hemoglobin AlC % Suggested Diagnosis > or = 6.5 Diabetic 5.7 - 6.4 Prediabetic <5.7 Non-diabetic eAVG Glucose 289.09 mg/dL 11/25/2023 5:31 PM EDT [facility] Blood Venipuncture / Unknown 11/25/2023 11:24 AM EDT 11/25/2023 1:46 PM EDT us Radha Ram MD LAB BLOOD ORDERABLES Fi nal Result [facility] [address] [phone] from Last 3 Months or Most Recently Relevant to Health Maintenance Insurance [facility] [place] [id number] MEDICARE PART A B MEDICAID OF [place] Directives For more information, please contact: [phone] * Full Code (Latest Code Status on [...] Sister First Alternate Healthcare Decision-Maker Care Teams Button And Buckle Maker Relationship Specialty Start Date End Date [facility], Provider Not In The System, [place] [address] PCP - General 10/05/23
--- OUTSIDE RECORDS SUMMARY | 2025-03-13 11:18 | XMS_ITS | Encounter Summary ---
Author Organization [facility] Address [address] [place] [address] Care Team Providers Care Program Manager Rn Name Role Phone Cayla Erazo APRN, DNP Unavailable [phone] Vignesh Pickens MD Primary Care Provider [phone] Encounter Details Date Type Department Care Team (Late st Contact Info) Description 02/22/2025 Orders Only External Location [address] [place] [address] Jordan Carl MD [address] [place] [address] Social History Tobacco Use Types [...] any time in the past 12 m [facility], were you homeless or [...] drink first t rodríguez in the morning (EYE-MICROGRAPHICS SERVICES SUPERVISOR) to steady your nerves or to [...] Info) Description 03/27/2025 10:30 AM EDT Appointment [facility] Ultrasound [address], 2nd [place] [address] 03/27/2025 11:50 AM EDT Clinical Support Medical Office Building Lab [address] [place] [address] 03/27/2025 1:00 PM EDT Office Visit Medical Office Building Urology [address] [facility], [address] [place] [address] Cayla Erazo, DOOR REPAIRER BUS, DNP [address] [place] [address] 05/16/2025 8:00 AM EDT Office Visit [facility] [place] [address] [facility], [address] [place] [address] Karly Gracia MD [address] [place] [address] 06/07/2025 1:00 PM EDT Office Visit [facility] [address] [place] [address] Tom Iraheta MD [address] [place] [address] documented as of this encounter Procedures Procedure Name Priority Date/Time Associated Diagnosis Comments CT OUTSIDE IMAGES 02/22/2025 12:48 PM EDT documented in this encounter Results * CT OUTSIDE IMAGES (02/22/2025 12:48 PM EDT) Anatomical Region Laterality Modality Computed Tomogra phy 02/22/2025 12:4 8 PM EDT Jordan Carl MD IM CT PROCEDURES Final Result documented in this [...] as of this encounter Care Teams Program Manager Rn Relationship Specialty Start Date End Date Vignesh Pickens MD [address] [place] [address] PCP - General 12/31/24 Cayla Erazo APRN, DNP [address] [place] [address] Nurse Practitioner Urology 12/20/24 documented as of this encounter
--- OUTSIDE RECORDS SUMMARY | 2025-03-13 11:18 | XMS_ITS | Referral Summary ---
Author Organization [employer] ([place], [place], [place], [place]) Address [address] [place] [address] Care Team Providers Care Advertising Editor Name Role Phone [facility], Provider Not In The System MD [...] Do you speak a language other than Yemeni at ho me? No 12/09/2023 Do you [...] A1C 11.7 % 11/25/2023 5:31 PM EDT [facility] Comment: Hemoglobin A1C levels are related to mean glucose during the preceding 2-3 months. Less than 7% demonstrates glycemic control in diabetic patients. Hemoglobin AlC % Suggested Diagnosis > or = 6.5 Diabetic 5.7 - 6.4 Prediabetic <5.7 Non-diabetic eAVG Glucose 289.09 mg/dL 11/25/2023 5:31 PM EDT [facility] Blood Venipuncture / Unknown 11/25/2023 11:24 AM EDT 11/25/2023 1:46 PM EDT Radha Ram MD LAB BLOOD ORDERABLES Fi nal Result [facility] [address] [place] [address], [facility] [phone] from Last 3 Months or Most Recently Relevant to Health Maintenance Insurance MEDICARE PART A B MEDICAID OF [place] Directives For more information, please contact: [phone] * Full Code (Latest Code Status on [...] Sister First Alternate Healthcare Decision-Maker Care Teams Advertising Editor Relationship Specialty Start Date End Date [facility], Provider Not In The System, [place] [address] PCP - General 10/05/23
--- OUTSIDE RECORDS SUMMARY | 2025-03-13 11:19 | XMS_ITS | Encounter Summary ---
Author Organization [facility] Address [address] [place] [address] Care Team Providers Care Senior Sales Operations Manager Name Role Phone Daniel Barba MD Primary Care Provider [phone] Cayla Erazo APRN, [facility] Unavailable [phone] Vignesh Pickens MD Primary Care Provider [phone] Encounter Details Date Type Department Care Team (Late st Contact Info) Description 10/19/2024 Orders Only External Location [address] [place] [address] Provider, External Social History Tobacco Use Types [...] drink first t rodríguez in the morning (EYE-RECREATION AIDE) to steady your nerves or to get [...] Upcoming Encounters Date Type Department Care Team ([facility] st Contact Info) Description 03/27/2025 10:30 AM EDT Appointment [facility] [place] [facility] Ultrasound [address], 2nd [place] [address] 03/27/2025 11:50 AM EDT Clinical Support Medical Office Building Lab [address] [place] [address] 03/27/2025 1:00 PM EDT Office Visit Medical Office Building Urology [address] [facility], [address] [place] [address] Cayla Erazo, CORPORATE PLANNING MANAGER, DNP [address] [place] [address] 05/16/2025 8:00 AM EDT Office Visit [facility] [place] [address] [facility], [address] [place] [address] Karly Grcaia MD [address] [place] [address] 06/07/2025 1:00 PM EDT Office Visit [facility] [address] [place] [address] Tom Iraheta MD [address] [place] [address] documented as of this encounter [...] documented as of this encounter Care Teams Senior Sales Operations Manager Relationship Specialty Start Date End Date Daniel Barba MD [address] [place] [address] PCP - General 01/02/21 12/30/24 Vignesh Pickens MD [address] [place] [address] PCP - General 12/31/24 Cayla Erazo APRN, [place] [id number] [place] [address] Nurse Practitioner Urology 12/20/24 documented as of this encounter
--- OUTSIDE RECORDS SUMMARY | 2025-03-13 11:19 | XMS_ITS | Encounter Summary ---
Author Organization [facility] Address [address] [place] [address] Care Team Providers Care Board Operator Name Role Phone Cayla Erazo APRN, DNP Unavailable [phone] Vignesh Pickens MD Primary Care Provider [phone] Encounter Details Date Type Department Care Team (Late st Contact Info) Description 02/22/2025 Orders Only External Location [address] [place] [address] Jordan Carl MD [address] [place] [address] Social History Tobacco Use Types [...] time in the past 12 m [facility], were you homeless or living [...] drink first t rodríguez in the morning (EYE-FULL SERVICE VENDING DRIVER) to steady your nerves or to [...] EDT Appointment [facility] Ultrasound [address], 2nd [place] [address] 03/27/2025 11:50 AM EDT Clinical Support Medical Office Building Lab [address] [place] [address] 03/27/2025 1:00 PM EDT Office Visit Medical Office Building Urology [address] [facility], [address] [place] [address] Cayla Erazo, MILLINERY DEPARTMENT MANAGER, DNP [address] [place] [address] 05/16/2025 8:00 AM EDT Office Visit [facility] [place] [address] [facility], [address] [place] [address] Karly Gracia MD [address] [place] [address] 06/07/2025 1:00 PM EDT Office Visit [facility] [address] [place] [address] Tom Iraheta MD [address] [place] [address] documented as of this encounter [...] documented as of this encounter Care Teams Board Operator Relationship Specialty Start Date End Date Vignesh Pickens MD [address] [place] [address] PCP - General 12/31/24 Cayla Erazo APRN, DNP [address] [place] [address] Nurse Practitioner Urology 12/20/24 documented as of this encounter
--- OUTSIDE RECORDS SUMMARY | 2025-03-13 11:19 | XMS_ITS | Encounter Summary ---
Author Organization [facility] Address [address] [place] [address] Care Team Providers Care Chemical Reclamation Equipment Operator Name Role Phone Cayla Erazo APRN, DNP Unavailable [phone] Vignesh Pickens MD Primary Care Provider [phone] Encounter Details Date Type Department Care Team (Late st Contact Info) Description 03/01/2025 Telephone [facility] [address] [address] Dental, Surgeon, [address] [place] [address] Social History Tobacco Use Types Packs/Day Years [...] drink first t rodríguez in the morning (EYE-CRYSTAL EVALUATOR) to steady your nerves or to get [...] [facility] Ul[facility]ound [address], 2nd [place] [address] 03/27/2025 11:50 AM EDT Clinical Support Medical Office Building Lab [address] [place] [address] 03/27/2025 1:00 PM EDT Office Visit Medical Office Building Urology [address] [facility], [address] [place] [address] Cayla Erazo, COMPUTER SYSTEMS SECURITY ADMINISTRATOR, DNP [address] [place] [address] 05/16/2025 8:00 AM EDT Office Visit [facility] [place] [address] [facility], [address] [place] [address] Karly Gracia MD [address] [place] [address] 06/07/2025 1:00 PM EDT Office Visit [facility] [address] [place] [address] Tom Iraheta MD [address] [place] [address] documented as of this encounter [...] documented as of this encounter Care Teams Chemical Reclamation Equipment Operator Relationship Specialty Start Date End Date Vignesh Pickens MD [address] [place], [place] [address] PCP - General 12/31/24 Cayla Erazo APRN, DNP [address] [place] [address] Nurse Practitioner Urology 12/20/24 documented as of this encounter
--- OUTSIDE RECORDS SUMMARY | 2025-03-13 11:19 | XMS_ITS | Encounter Summary ---
Author Organization [facility] Address [address] [place] [address] Care Team Providers Care Patient Financial Representative Name Role Phone Cayla Erazo APRN, DNP Unavailable Vignesh Pickens MD Primary Care Provider [phone] Encounter Details Date Type Department Care Team [...] any time in the past 12 m [facility], were you homeless or living in [...] drink first t rodríguez in the morning (EYE-VOUCHER EXAMINER) to steady your nerves or to get [...] Info) Description 03/27/2025 10:30 AM EDT Appointment [facility] Ultrasound [address], 2nd [place] [address] 03/27/2025 11:50 AM EDT Clinical Support Medical Office Building Lab [address] [place] [address] 03/27/2025 1:00 PM EDT Office Visit Medical Office Building Urology [address] [facility], [address] [place] [address] Cayla Erazo, BASE MANAGER, DNP [address] [place] [address] 05/16/2025 8:00 AM EDT Office Visit [facility] [place] [address] [facility], [address] [place] [address] Karly Gracia MD [address] [place] [address] 06/07/2025 1:00 PM EDT Office Visit [facility] [address] [place] [address] Tom Iraheta MD [address] [place] [address] documented as of this encounter [...] documented as of this encounter Care Teams Patient Financial Representative Relationship Specialty Start Date End Date Vignesh Pickens MD [address] [place] [address] PCP - General 12/31/24 Cayla Erazo APRN, [place] [address] [place] [address] Nurse Practitioner Urology 12/20/24 documented as of this encounter
--- OUTSIDE RECORDS SUMMARY | 2025-03-13 11:19 | XMS_ITS | Encounter Summary ---
Author Organization [facility] Address [address] [place] [address] Care Team Providers Care Master Scheduler Name Role Phone Cayla Erazo APRN, DNP Unavailable [phone] Vignesh Pickens MD Primary Care Provider [phone] Encounter Details Date Type Department Care Team (Late st Contact Info) Description 02/22/2025 Orders Only External Location [address] [place] [address] Jordan Carl MD [address] [place] [address] Social History Tobacco Use Types [...] any time in the past 12 m [facility], were you homeless or [...] drink first t rodríguez in the morning (EYE-BARREL DRAINER) to steady your nerves or to get [...] Info) Description 03/27/2025 10:30 AM EDT Appointment [facility] Ultrasound [address] 2nd [place] [address] 03/27/2025 11:50 AM EDT Clinical Support Medical Office Building Lab [address] [place] [address] 03/27/2025 1:00 PM EDT Office Visit Medical Office Building Urology [address] [facility], [address] [place] [address] Cayla Erazo, BREADMAN, DNP [address] [place] [address] 05/16/2025 8:00 AM EDT Office Visit [facility] [place] [address] [facility], [address] [place] [address] Karly Gracia MD [address] [place] [address] 06/07/2025 1:00 PM EDT Office Visit [facility] [address] [place] [address] Tom Iraheta MD [address] [place] [address] documented as of this encounter Procedures Procedure Name Priority Date/Time Associated Diagnosis Comments CT OUTSIDE IMAGES 02/22/2025 12:46 PM EDT documented in this encounter Results * CT OUTSIDE IMAGES (02/22/2025 12:46 PM EDT) Anatomical Region Laterality Modality Computed Tomogra phy 02/22/2025 12:4 6 PM EDT Jordan Carl MD IM CT [...] documented as of this encounter Care Teams Master Scheduler Relationship Specialty Start Date End Date Vignesh Pickens MD [address] [place] [address] PCP - General 12/31/24 Cayla Erazo APRN, DNP [address] [place] [address] Nurse Practitioner Urology 12/20/24 documented as of this encounter
--- OUTSIDE RECORDS SUMMARY | 2025-03-13 11:19 | XMS_ITS | Encounter Summary ---
Author Organization [facility] Address [address] [place] [address] Care Team Providers Care Operating Engineer Apprentice Name Role Phone Cayla Erazo APRN, DNP Unavailable [phone] Vignesh Pickens MD Primary Care Provider [phone] Encounter Details Date Type Department Care Team [...] drink first t rodríguez in the morning (EYE-RADIO HOST) to steady your nerves or to get [...] Description 03/27/2025 10:30 AM EDT Appointment [facility] Ultrasound [address] 2nd [place] [address] 03/27/2025 11:50 AM EDT Clinical Support Medical Office Building Lab [address] [place] [address] 03/27/2025 1:00 PM EDT Office Visit Medical Office Building Urology [address] [facility], [address] [place] [address] Cayla Erazo, MOLDING ASSOCIATE, DNP [address] [place] [address] 05/16/2025 8:00 AM EDT Office Visit [facility] [place] [address] [facility], [address] [place] [address] Karly Gracia MD [address] [place] [address] 06/07/2025 1:00 PM EDT Office Visit [facility] [address] [facility] [address] [place] [address] Tom Iraheta MD [address] [place] [address] documented as of this encounter [...] documented as of this encounter Care Teams Operating Engineer Apprentice Relationship Specialty Start Date End Date Vignesh Pickens MD [address] [place] [address] PCP - General 12/31/24 Cayla Erazo APRN, [place]ICK [address] [facility] [address] [place] [address] Nurse Practitioner Urology 12/20/24 documented as of this encounter
--- NOTE | 2025-03-13 11:21 | XR_ITS ---
FINAL REPORT CLINICAL HISTORY: lethargy COMPARISON: 03/04/2025 FINDINGS: A single frontal view of the chest was obtained. No acute pulmonary opacity is present. There is no evidence of effusion or pneumothorax. Mediastinum is unremarkable. Heart size is normal. IMPRESSION: No acute abnormality. Reviewed, Interpreted and Dictated by Ad Garcia MD Transcribed by Maegan Regalado Authenticated and [facility]
[2025-03-13 11:29] LABS: Hematocrit 30.2 % (37.0-47.0); Hemoglobin 9.1 g/dL (12.2-16.2); Immature Granulocytes % 0.2 %; Mean Corpuscular HGB Conc 30.1 g/dL (31.8-35.4); Mean Corpuscular Hemoglobin 25.6 pg (27.0-31.2); Mean Corpuscular Volume 84.8 fl (81-99); Nucleated Red Blood Cells % 0 %; Platelet Count 315 K/mm3 (142-424); Red Blood Count 3.56 M/mm3 (4.20-5.40); Red Cell Distribution Width-SD 47.8 fL; White Blood Count 4.4 K/mm3 (4.8-10.8)
--- NOTE | 2025-03-13 11:29 | ED_ITS ---
<Statement entered by Jama Rob MD - 03/13/25 16:47> I was consulted by the WAYLON, and we discussed the complexity of problems being addressed. I approved the treatment and management plan for this patient's care in the emergency department, thus performing a substantial portion of the medical decision making. Jama Rob MD Discharge Plan Disposition Patient Disposition: Admitted Condition: Good Prescriptions Prescriptions: No Action acetaminophen 500 mg tablet 500 mg PO Q6HP PRN (Reason: Mild Pain (Scale Score 1-4)) anastrozole 1 mg tablet 1 mg PO DAILY atorvastatin 40 mg tablet 40 mg PO DAILY carvedilol 12.5 mg tablet 12.5 mg PO BID calcitriol 0.25 mcg capsule 0.25 mcg PO DAILY dextromethorphan-guaifenesin [Guaiasorb DM] 10-100 mg/5 mL liquid 10 ml PO Q4H PRN AZO D-Mannose 500 mg capsule 2,000 mg PO DAILY insulin aspart U-100 100 unit/mL (3 mL) insulin pen 1 sliding scale dose SQ USEASDIRECTD trospium 20 mg tablet 20 mg PO BID Rx Instructions: administer on an empty stomach mirabegron [Myrbetriq] 50 mg tablet extended release 24 hr 50 mg PO DAILY loperamide 2 mg capsule 2 mg PO Q4HP PRN (Reason: Diarrhea) pantoprazole [Protonix] 20 mg tablet,delayed release (DR/EC) 20 mg PO DAILY baclofen 10 mg tablet 10 mg PO TID azelastine 137 mcg (0.1 %) aerosol,spray 2 spray intranasal BID Qty: 30 3RF Rx Instructions: administer into each nostril ciprofloxacin HCl [Cipro] 500 mg tablet 500 mg PO BID ascorbic acid (vitamin C) [Vitamin C] 500 mg tablet 500 mg PO BID oxycodone-acetaminophen [Percocet] 5-325 mg tablet 1 tab PO BID PRN (Reason: Pain (Scale Score 7-10)) Qty: 60 0RF fentanyl 12 mcg/hr patch 72 hour 1 patch transdermal Q72H Qty: 10 0RF insulin glargine [Basaglar KwikPen U-100 Insulin] 100 unit/mL (3 mL) insulin pen 70 unit SQ BID pregabalin 50 mg capsule 50 mg PO DAILY Qty: 30 5RF clopidogrel 75 MG tablet 75 mg PO DAILY multivitamin with minerals 1 EACH tablet 1 each PO DAILY ondansetron 4 mg Tablet,Disintegrating 4 mg PO Q6HP PRN (Reason: Nausea And Vomiting) trazodone 150 mg tablet 300 mg PO HS ferrous sulfate [iron] 325 mg (65 mg iron) tablet 325 mg PO BID cyanocobalamin (vitamin B-12) [Vitamin B-12] 1,000 mcg Tablet 1,000 mcg PO DAILY fluticasone propionate 50 mcg/actuation [place],Suspension 1 spray INTRANASAL BID Rx Instructions: administer into each nostril cholecalciferol (vitamin D3) [Vitamin D3] 25 mcg (1,000 unit) Tablet 25 mcg PO BID fluticasone furoate-vilanterol [Breo Ellipta] 100-25 mcg/dose Blister With Device 1 inh INHALATION DAILY magnesium oxide 400 mg magnesium Tablet 400 mg PO BID Print Language Print Language: Icelandic Discharge ED Provider: Jama Rob Adult HPI General Chief complaint: Weakness Stated complaint: Lethargic Time Seen by Provider: 03/13/25 11:11 Mode of Arrival: EMS Source of Information: Patient and Medical Record Limitations: No Limitations History of Present Illness HPI narrative: 64-year-old female presents via EMS from [facility] with lethargic. Per long term staff was treated 617 for UTI but continues with lethargy. Patient states she is just having a hard time waking up. Related Data Home Medications ?Medication ?Instructions ?Recorded ?Confirmed acetaminophen 500 mg tablet 500 mg PO Q6HP PRN Mild Pa in 02/28/18 03/05/25 (Scale Score 1-4) anastrozole 1 mg tablet 1 mg PO DAILY breast cancer 02/28/18 03/05/25 atorvastatin 40 mg tablet 40 mg PO DAILY Cholesterol 0 02/28/18 03/05/25 carvedilol 12.5 mg tablet 12.5 mg PO BID Hypertension 02/28/18 03/05/25 loperamide 2 mg capsule 2 mg PO Q4HP PRN Diarrhea 03/05/25 baclofen 10 mg tablet 10 mg PO TID muscle spasms 0 04/11/19 03/05/25 pantoprazole 20 mg tablet,delayed 20 mg PO DAILY GERD 04/11/19 03/05/25 release (Protonix) clopidogrel 75 mg tablet 75 mg PO DAILY PLATELET INHI BITOR 02/04/20 03/05/25 multivitamin with minerals 1 each PO DAILY Supplement 05/06/21 03/05/25 ondansetron 4 mg disintegrating 4 mg PO Q6HP PRN Nause a And 07/28/22 03/05/25 tablet Vomiting trazodone 150 mg tablet 300 mg PO HS SLEEP 07/28/22 03/05/25 cholecalciferol (vitamin D3) 25 25 mcg PO BID 10/04/23 03/05/25 mcg (1,000 unit) tablet (Vitamin D3) cyanocobalamin (vitamin B-12) 1,000 mcg PO DAILY 10/0403/05/25 1,000 mcg tablet (Vitamin B-12) fluticasone furoate 100 1 inh inhalation DAILY 10/0403/05/25 mcg-vilanterol 25 mcg/dose inhalation powder (Breo Ellipta) fluticasone propionate 50 1 spray intranasal BID 10/0403/05/25 mcg/actuation nasal spray,suspension magnesium oxide 400 mg PO BID 10/04/2303/05 ascorbic acid (vitamin C) 500 mg 500 mg PO BID Supplem ent 10/16/23 03/05/25 tablet (Vitamin C) calcitriol 0.25 mcg capsule 0.25 mcg PO DAILY 03/19/24 03/05/25 dextromethorphan-guaifenesin 10 10 ml PO Q4H PRN 07/2403/05/25 mg-100 mg/5 mL oral liquid (Guaiasorb DM) ferrous sulfate 325 mg (65 mg 325 mg PO BID Supplement 10/02/24 03/05/25 iron) tablet (iron) d-mannose 500 mg capsule (AZO 2,000 mg PO DAILY 03/05/25 D-Mannose) insulin aspart U-100 100 unit/mL 1 sliding scale dose SQ 02/19/25 03/05/25 (3 mL) subcutaneous pen USEASDIRECTD insulin glargine 100 unit/mL (3 70 unit SQ BID 5 03/05/25 mL) subcutaneous pen (Basaglar KwikPen U-100 Insulin) mirabegron 50 mg tablet,extended 50 mg PO DAILY 03/05/25 release 24 hr (Myrbetriq) trospium 20 mg tablet 20 mg PO BID 02/19/25 ciprofloxacin HCl 500 mg tablet 500 mg PO BID 03/05/25 03/05/25 (Cipro) Previous Rx's ?Medication ?Instructions ?Recorded azelastine 137 mcg (0.1 %) nasal 2 spray intranasal BI D allergy 09/13/23 spray symptoms #30 mL oxycodone-acetaminophen 5 mg-325 1 tab PO BID PRN Pain (Scale Score 01/16/25 mg tablet (Percocet) 7-10) #60 tabs fentanyl 12 mcg/hr transdermal 1 patch transdermal Q72 H #10 02/07/25 patch patches pregabalin 50 mg capsule 50 mg PO DAILY #30 caps 02/19 10/16 Allergies Allergy/AdvReac Type Severity Reaction Status Date / Time bupropion (From WELLBUTRIN) Allergy Unknown Unknown Verified 03/05/25 09:27 allergy reaction hydrocodone (From LORTAB) Allergy Unknown Unknown Verified 03/05/25 09:27 allergy reaction Sulfa (Sulfonamide Allergy Unknown Unknown Verified 03/05/25 09:27 Antibiotics) (SULFA allergy (SULFONAMIDE ANTIBIOTICS)) reaction tramadol (From ULTRAM) Allergy Unknown Unknown Verified 03/05/25 09:27 allergy reaction SURGICAL TAPE Allergy Unknown Unknown Uncoded 10/15/24 13:43 allergy reaction PFSH PFSH Disclaimer: The information contained in this section may have been updated after the patient was seen, as this information can be updated by other users. 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, left Menopausal vasomotor syndrome Otogenic otalgia of right ear Otogenic otalgia of left ear Fibromyalgia, primary Gastro-esophageal reflux disease without esophagitis 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[place] coronary artery without angina pectoris Other idiopathic peripheral autonomic neuropathy Chronic pain syndrome Anxiety disorder, unspecified Major depressive disorder, recurrent, unspecified Hypertensive heart disease without heart failure Need for assistance at home and no other household member able to render care Age-related osteoporosis without current pathological fracture Trochanteric bursitis, right hip Unilateral primary osteoarthritis, right hip Obstructive sleep apnea (adult) (pediatric) Unspecified diastolic (congestive) heart failure Iron deficiency anemia secondary to blood loss (chronic) Right carotid artery occlusion BMI 39.0-39.9,adult Biventricular CHF (congestive heart failure) PVC (premature ventricular contraction) Edema Chronic hypoxemic respiratory failure Stopped smoking with greater than 30 pack year history ARA and COPD overlap syndrome Acute respiratory failure with hypoxia and hypercapnia CHF exacerbation History of smoking 30 or more pack years Foot pain History of breast cancer Abnormal ECG COPD (chronic obstructive pulmonary disease) CVA (cerebral vascular accident) CAD (coronary artery disease) Surgical History , SLAT TWISTER) Presence of internal carotid stent History of right shoulder replacement Status post left knee replacement History of total left knee replacement History of right mastectomy Family History , SLAT TWISTER) Black lung disease Diabetes Hypertension Social History , SLAT TWISTER) Smoking Status: Former smoker tobacco type: cigarettes packs per day: 1 smoking status stop date: 06/2022 alcohol intake: never substance use type: denies use current occupational status: disabled Travel in the last 8 weeks?: None household members: other housing: long term caffeine: Yes Have you lived/traveled outside [place] in past 30 days?: No Contact w/someone who lives/traveled outside US past 30 days?: No Exposure to someone with infectious disease in past 14 days?: No Do you have a fever (greater than 100.4 F or 38 C)?: No Have you tested positive for COVID-19?: No Exposed to someone with COVID-19 in past 14 days?: No Do you have a sore throat?: No Do you have a cough?: No Do you have any weakness?: No Do you have any diarrhea?: No Are you experiencing any unusual bleeding?: No Do you have any muscle aches/pain?: No Do you have any abdominal pain?: No Are you experiencing loss of taste or smell?: No Other 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 Have you received the Flu Vaccine for this season: No Have you received the Pneumonia Vaccine: Yes (06/29/19, 11/26/24) ROS Obtained: Yes All systems reviewed & no additional complaints except as documented Constitutional Constitutional: Reports system reviewed and no additional complaints, except as documented, Reports as per HPI, Reports lethargy and Reports weakness Cardiovascular Cardiovascular: Reports system reviewed and no additional complaints, except as documented Genitourinary Female Genitourinary: Reports system reviewed and no additional complaints, except as documented, Reports as per HPI and Reports other Neurologic Neurologic: Reports system reviewed and no additional complaints, except as documented, Reports as per HPI and Reports weakness Physical Exam General General appearance: alert and lethargic (Awakens to name called) ENT ENT exam: Present normal exam Respiratory Respiratory exam: Present normal lung sounds bilaterally Cardiovascular Cardiovascular exam: Present regular rate and normal rhythm Abdominal Exam Abdominal exam: Present soft; Absent tenderness Neurological Exam Neurological exam: Present alert Skin Skin exam: Present warm Medical Decision Making Medical Records Medical records reviewed: Yes I reviewed the patient's medical records. Screening: Per USPSTF and CDC recommendations, given the prevalence of disease in our region, it is our hospital?s policy to screen for HIV and viral Hepatitis for all patients aged 18 and over and those with ongoing risk factors. Jordi Inquiry Pt receiving controlled substance: No Vital Signs: 03/13/25 11:12 03/13/25 11:18 03/13/25 11:31 Temperature 99.8 F H Temperature Source Oral Pulse Rate 87 88 Pulse Rate [Right] 85 Respiratory Rate 26 H 22 Blood Pressure 137/72 Blood Pressure [Right Arm] 118/70 Blood Pressure Mean Blood Pressure Mean [Right Arm] 86 Blood Pressure Source [Right Arm] Automatic Cuff Blood Pressure Position [Right Arm] Supine 02 Sat by Pulse Oximetry 99 94 L 99 Oxygen Delivery Method Nasal Cannula Nasal Cannula Nasal Cannula Oxygen Flow Rate (LPM) 3 3 3 03/13/25 12:00 03/13/25 12:30 03/13/25 13:01 Temperature Temperature Source Pulse Rate 88 88 68 Pulse Rate [Right] Respiratory Rate 12 12 19 Blood Pressure 133/74 142/79 H 151/85 H Blood Pressure [Right Arm] Blood Pressure Mean 85 90 107 Blood Pressure Mean [Right Arm] Blood Pressure Source [Right Arm] Blood Pressure Position [Right Arm] 02 Sat by Pulse Oximetry 98 100 100 Oxygen Delivery Method Oxygen Flow Rate (LPM) 03/13/25 13:30 03/13/25 14:00 Temperature Temperature Source Pulse Rate 92 H Pulse Rate [Right] Respiratory Rate 18 16 Blood Pressure 124/77 131/83 Blood Pressure [Right Arm] Blood Pressure Mean 92 Blood Pressure Mean [Right Arm] Blood Pressure Source [Right Arm] Blood Pressure Position [Right Arm] 02 Sat by Pulse Oximetry 95 Oxygen Delivery Method Nasal Cannula Oxygen Flow Rate (LPM) 3 Lab Data Lab results reviewed: Yes I reviewed the patient's lab results. Lab Results 03/13/25 11:18: WBC 4.4 L, RBC 3.56 L, Hgb 9.1 L, Hct 30.2 L, MCV 84.8, MCH 25.6 L, MCHC 30.1 L, RDW 15.5, Plt Count 315, MPV 10.1, Neut % (Auto) 60.2, Lymph % (Auto) 15.2, [place] % (Auto) 20.8 H, Eos % (Auto) 2.9, Baso % (Auto) 0.7, Neut # (Auto) 2.7, Lymph # (Auto) 0.7, [place] # (Auto) 0.9, Eos # (Auto) 0.1, Baso # (Auto) 0.0, VBG pH 7.31, VBG pCO2 55.9 H, VBG pO2 53.3 H, VBG HCO3 27.4, VBG Total CO2 29.1 H, VBG O2 Saturation 85.1 H, VBG Base Excess 1.1, VBG Lactic Acid 1.3, Sodium 131 L, Potassium 5.0, Chloride 95 L, Carbon Dioxide 31 H, Anion Gap 10.0, BUN 45 H, Creatinine 2.30 H, Estimated GFR 21 L, Est GFR ( Amer) 26 L, Glucose 219 H, Calcium 9.4, Magnesium 1.8, Total Bilirubin 0.7, AST 21, ALT 23, Alkaline Phosphatase 128 H, Troponin I 0.03, Total Protein 7.5, Albumin 3.8, Globulin 3.7 H, Albumin/Globulin Ratio 1.0 L, TSH 0.80 03/13/25 11:25: Urine Color Yellow, Urine Appearance Turbid, Urine pH 7.0, Ur Specific [place] 1.015, Urine Protein Trace A, Urine Glucose (UA) Negative, Urine Ketones Negative, Urine Blood 3+ A, Urine Nitrate Negative, Urine Bilirubin Negative, Urine Urobilinogen 0.2, Ur Leukocyte Esterase 3+ A, Urine RBC 20-50, Urine WBC Tntc, Ur Squamous Epith Cells 10-20, Urine Bacteria Trace, Urine Opiates Screen Negative, Urine Methadone Screen Negative, Ur Phencyclidine Scrn Negative, Ur Amphetamines Screen Negative, U Benzodiazepines Scrn Negative, Urine Cocaine Screen Negative, U Marijuana (THC) Screen Negative 03/13/25 11:55: Ammonia < 9 L 03/13/25 11:18 03/13/25 11:18 Orders (Tests/Meds): ORDERS Category Date Time Status CT head/brain wo con Stat Cat Scan 03/13/25 11:16 Completed Chest XR -- portable [XR chest portable] Stat Exams 03/13/25 11:21 Completed Ammonia Stat Lab 03/13/25 11:55 Completed CBC w/Auto Diff [Complete Blood Count Auto Diff] Stat Lab 03/13/25 11:18 Completed CMP [Comprehensive Metabolic Panel] Stat Lab 03/13/25 11:18 Completed Lactate Venous Stat Lab 03/13/25 11:16 Ordered Magnesium Stat Lab 03/13/25 11:18 Completed TSH [Thyroid Stimulating Hormone] Stat Lab 03/13/25 11:18 Completed Trop I [Troponin I] Stat Lab 03/13/25 11:18 Completed Troponin I Q3H Lab 03/13/25 14:21 Received Troponin I Q3H Lab 03/13/25 17:30 Ordered UDS [Drug Screen,Urine] Stat Lab 03/13/25 11:25 Results Urinalysis and Microscopic Stat Lab 03/13/25 11:25 Completed Blood Culture Stat Micro 03/13/25 12:08 Received Urine Culture Stat Micro 03/13/25 11:25 Received Venous Blood Gas Stat RT 03/13/25 11:18 Completed Medical Decision Narrative: In summary patient is a 64 female who presents to the emergency department for evaluation of lethargic being treated for UTI. Patient is hemodynamically stable upon arrival, afebrile. Unremarkable physical exam. Differential diagnosis includes CVA, UTI. Initial workup will be conducted with labs creatinine elevated which is patient's baseline, positive for leukocytes, ammonia low. Initial inventions include labs, CT, EKG,. Initial workup reviewed by me labs show creatinine 2.3, sodium low. Upon repeat evaluation patient at this time is still lethargic but alert when name called. Given this hospitalist was called patient is being admitted for UTI with failed outpatient therapy. Will admit for IV antibiotics based on culture on she was positive for Enterobacter cloacae-sensitive to Invanz Critical Care Critical Care Time Critical Care Time: No
[2025-03-13 11:31] LABS: Microscopic, Urine URINE MICROSCOPIC (MICROSCOPIC)
[2025-03-13 11:34] LABS: Albumin Level 3.8 g/dl (3.5-5.0); Chloride 95 mmol/L (98-107); Sodium 131 mmol/L (136-145); VBG PH 7.31 mmol/L (7.31-7.41)
[2025-03-13 11:35] LABS: Lactate Venous 1.3 mmol/L (0.4-2.0); Potassium 5.0 mmoL/L (3.5-5.1); VBG HCO3 27.4 mmol/L (23-30); VBG PCO2 55.9 mmol/L (35-51); VBG PO2 53.3 mmol/L (28-40)
[2025-03-13 11:37] LABS: Alanine Aminotransferase 23 U/L (12-78); Alkaline Phosphatase 128 U/L (38-126); Anion Gap 10.0 mEq/L (5-15); Aspartate Amino Transferase 21 U/L (14-36); Bilirubin,Total 0.7 mg/dl (0.2-1.3); Blood Urea Nitrogen 45 mg/dl (7-17); Carbon Dioxide 31 mmol/L (22.0-30.0); Creatinine,Serum 2.30 mg/dl (0.52-1.04); Estimated Glomerular Filt Rate 21 ml/min (>60); GFR (African American) 26 ML/MIN (>60)
[2025-03-13 11:38] LABS: Albumin/Globulin Ratio 1.0 (1.1-1.8); Calcium 9.4 mg/dl (8.4-10.2); Globulin 3.7 g/dL (1.3-3.2); Glucose 219 mg/dl (74-100); Magnesium 1.8 mg/dl (1.6-2.3); Total Protein,Serum 7.5 g/dl (6.3-8.2)
[2025-03-13 11:49] LABS: Troponin I 0.03 ng/ml (0.00-0.034)
--- NOTE | 2025-03-13 11:57 | PC.NURSE ---
Collected an ammonia and sent on this patient
[2025-03-13 12:09] LABS: Ammonia < 9 umol/L (9-30)
[2025-03-13 12:09] LABS: Thyroid Stimulating Hormone 0.80 uIU/mL (0.465-4.68)
[2025-03-13 12:31] LABS: Phencyclidine Screen,Urine Negative ng/ml (<25)
[2025-03-13 12:34] LABS: Amphetamine/Metha Screen,Urine Negative ng/ml (<1000); Benzodiazepines Screen,Urine Negative ng/ml (<200)
[2025-03-13 12:36] LABS: Color,Urine Yellow (Yellow); Glucose,Urine (UA) Negative (Negative); Leukocyte Esterase,Urine 3+ (Negative); PH,Urine 7.0 (5.0-8.5); Specific Gravity, Urine 1.015 (1.005-1.030)
[2025-03-13 12:37] LABS: Bilirubin,Urine Negative (Negative); Ketones,Urine Negative (Negative); Methadone Screen,Urine Negative ng/ml (<300); Protein,Urine Trace (Negative); Urobilinogen,Urine 0.2 EU/dl (0.2)
[2025-03-13 12:43] LABS: Opiate Screen,Urine Negative ng/ml (<300)
[2025-03-13 13:05] LABS: Bacteria,Urine Trace /lpf; RBC,Urine 20-50 #/hpf (0-3); WBC,Urine TNTC #/hpf (0-3)
--- NOTE | 2025-03-13 14:27 | PC.NURSE ---
notified house for bed request admit
--- NOTE | 2025-03-13 14:29 | PC.NURSE ---
JIMI Tellez spoke with [facility] r/t Admission
--- NOTE | 2025-03-13 14:38 | PC.NURSE ---
Investigating further into PT hx, PT has a hx of R masectomy. When Questioning pt r/t mascetomy, pt stated its been so long, I forgot to tell you .
--- NOTE | 2025-03-13 14:54 | PC.NURSE ---
Report called to JIMI Gilbert
--- NOTE | 2025-03-13 14:55 | SW/DCPLANNER ---
Addendum entered by Coleen Jay RN 03/15/25 11:49: I have updated Angela with [facility] that patient may return tomorrow with IM Invanz. Patient's creatinine increased today. Addendum entered by Allyn Townsend 03/14/25 10:36: I have updated Angela w/ [facility] that patient may return tomorrow pending labs. I have also updated Angela that patient will need to return w/ IM Invanz. Original Note: Patient currently resides at [facility] level of care. I will continue to follow up w/ Angela during hospital admission.
[2025-03-13] MEDS: ERTAPENEM SODIUM 1 GM in 0.9 % SODIUM CHLORIDE 50 ML IV (15:09)
--- NOTE | 2025-03-13 15:09 | PC.NURSE ---
arrived by stretcher form ED
[2025-03-13 15:11] LABS: Troponin I 0.02 ng/ml (0.00-0.034)
--- NOTE | 2025-03-13 15:13 | P.CONPHA_ITS ---
Pharmacy Intervention Comments: Home medication list verified using list from care home MAR
--- NOTE | 2025-03-13 15:13 | HMH.PHAINT1 ---
Pharmacy Intervention Comments: Home medication list verified using list from 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 MAR
--- NOTE | 2025-03-13 15:22 | EXP.HP ---
History of Present Illness *Admission Date: 03/13/25 *Reason for visit:: Urinary tract infection *History of present illness: Ms. Tovar is a 64-year-old female who resides at [facility]. She presented to the emergency room via EMS today with complaints of lethargy and continued urinary tract infection. Per [facility] staff patient is normally alert and oriented, but today was found to be more lethargic and somnolent. Patient able to tell her name, birthday, where she is. But states she is very tired and unable to answer any more questions. She was admitted to the hospital for recurrent urinary tract infection, with failed outpatient therapy. Previous urine culture from 02/22/2025 shows Enterobacter cloacae. Culture and sensitivity show sensitivity to Invanz. [facility] Disclaimer: The information contained in this section may have been updated after the patient was seen, as this information can be updated by other users. 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, left Menopausal vasomotor syndrome Otogenic otalgia of right ear Otogenic otalgia of left ear Fibromyalgia, primary Gastro-esophageal reflux disease without esophagitis 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[place] coronary artery without angina pectoris Other idiopathic peripheral autonomic neuropathy Chronic pain syndrome Anxiety disorder, unspecified Major depressive disorder, recurrent, unspecified Hypertensive heart disease without heart failure Need for assistance at home and no other household member able to render care Age-related osteoporosis without current pathological fracture Trochanteric bursitis, right hip Unilateral primary osteoarthritis, right hip Obstructive sleep apnea (adult) (pediatric) Unspecified diastolic (congestive) heart failure Iron deficiency anemia secondary to blood loss (chronic) Right carotid artery occlusion BMI 39.0-39.9,adult Biventricular CHF (congestive heart failure) PVC (premature ventricular contraction) Edema Chronic hypoxemic respiratory failure Stopped smoking with greater than 30 pack year history ARA and COPD overlap syndrome Acute respiratory failure with hypoxia and hypercapnia CHF exacerbation History of smoking 30 or more pack years Foot pain History of breast cancer Abnormal ECG COPD (chronic obstructive pulmonary disease) CVA (cerebral vascular accident) CAD (coronary artery disease) Surgical History , 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) Presence of internal carotid stent History of right shoulder replacement Status post left knee replacement History of total left knee replacement History of right mastectomy Family History , 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) Black lung disease Diabetes Hypertension Social History , 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) Smoking Status: Former smoker tobacco type: cigarettes packs per day: 1 smoking status stop date: 06/2022 alcohol intake: never substance use type: denies use current occupational status: disabled Travel in the last 8 weeks?: None household members: other housing: jail caffeine: Yes Have you lived/traveled outside US in past 30 days?: No Contact w/someone who lives/traveled outside US past 30 days?: No Exposure to someone with infectious disease in past 14 days?: No Do you have a fever (greater than 100.4 F or 38 C)?: No Have you tested positive for COVID-19?: No Exposed to someone with COVID-19 in past 14 days?: No Do you have a sore throat?: No Do you have a cough?: No Do you have any weakness?: No Do you have any diarrhea?: No Are you experiencing any unusual bleeding?: No Do you have any muscle aches/pain?: No Do you have any abdominal pain?: No Are you experiencing loss of taste or smell?: No Other 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 Have you received the Flu Vaccine for this season: No Have you received the Pneumonia Vaccine: Yes (06/29/19, 11/26/24) Review of Systems Review of Systems Review of systems:: pertinent systems reviewed and negative unless documented below Constitutional Constitutional: Reports daytime sleepiness and Reports weakness *Cardiovascular Cardiovascular: Denies chest pain, Denies dyspnea and Denies edema *Respiratory Respiratory: Denies cough and Denies dyspnea *Gastrointestinal Gastrointestinal: Denies abdominal pain *Neurologic Neurologic: Reports system reviewed and no additional complaints, except as documented, Reports as per HPI and Reports weakness Meds Home Medications and Allergies Home Medications ?Medication ?Instructions ?Recorded ?Confirmed ?Type acetaminophen 500 mg tablet 500 mg PO Q6HP PRN Mild Pain 02/28/18 03/13/25 History (Scale Score 1-4) anastrozole 1 mg tablet 1 mg PO DAILY breast cancer 02/28/18 03/13/25 History atorvastatin 40 mg tablet 40 mg PO DAILY 02/28/18 03/13/25 History carvedilol 12.5 mg tablet 12.5 mg PO BID 02/28/18 03/13/25 History loperamide 2 mg capsule 2 mg PO Q4HP PRN Diarrhea 07/11/18 03/13/25 History baclofen 10 mg tablet 10 mg PO TID 04/11/19 03/13/25 History pantoprazole 20 mg tablet,delayed 20 mg PO DAILY 04/11/19 03/13/25 History release (Protonix) clopidogrel 75 mg tablet 75 mg PO DAILY 02/04/20 03/13/25 History multivitamin with minerals 1 each PO DAILY Supplement 05/06/21 03/13/25 History ondansetron 4 mg disintegrating 4 mg PO Q6HP PRN Nausea And 07/28/22 03/13/25 History tablet Vomiting trazodone 150 mg tablet 300 mg PO HS 07/28/22 03/13/25 History azelastine 137 mcg (0.1 %) nasal 2 spray intranasal BID allergy 09/13/23 03/13/25 Rx spray symptoms #30 mL cholecalciferol (vitamin D3) 25 25 mcg PO BID 10/04/23 03/13/25 History mcg (1,000 unit) tablet (Vitamin D3) cyanocobalamin (vitamin B-12) 1,000 mcg PO DAILY 10/04/23 03/13/25 History 1,000 mcg tablet (Vitamin B-12) fluticasone furoate 100 1 inh inhalation DAILY 10/04/23 03/13/25 History mcg-vilanterol 25 mcg/dose inhalation powder (Breo Ellipta) fluticasone propionate 50 1 spray intranasal BID 10/04/23 03/13/25 History mcg/actuation nasal spray,suspension magnesium oxide 400 mg PO BID 10/04/23 03/13/25 History ascorbic acid (vitamin C) 500 mg 500 mg PO BID 10/16/23 03/13/25 History tablet (Vitamin C) calcitriol 0.25 mcg capsule 0.25 mcg PO DAILY 03/19/24 03/13/25 History dextromethorphan-guaifenesin 10 10 ml PO Q4H PRN Cough 07/24/24 03/13/25 History mg-100 mg/5 mL oral liquid (Guaiasorb DM) ferrous sulfate 325 mg (65 mg 325 mg PO BID 10/02/24 03/13/25 History iron) tablet (iron) oxycodone-acetaminophen 5 mg-325 1 tab PO BID PRN Pain (Scale Score 01/16/25 03/13/25 Rx mg tablet (Percocet) 7-10) #60 tabs fentanyl 12 mcg/hr transdermal 1 patch transdermal Q72H #10 02/07/25 03/13/25 Rx patch patches d-mannose 500 mg capsule (AZO 2,000 mg PO DAILY 02/19/25 03/13/25 History D-Mannose) insulin aspart U-100 100 unit/mL 1 sliding scale dose SQ 02/19/25 03/13/25 History (3 mL) subcutaneous pen USEASDIRECTD insulin glargine 100 unit/mL (3 70 unit SQ BID 02/19/25 03/13/25 History mL) subcutaneous pen (Basaglar KwikPen U-100 Insulin) mirabegron 50 mg tablet,extended 50 mg PO DAILY 02/19/25 03/13/25 History release 24 hr (Myrbetriq) trospium 20 mg tablet 20 mg PO BID 02/19/25 03/13/25 History pregabalin 50 mg capsule 50 mg PO DAILY #30 caps 03/02/25 03/13/25 Rx fluvoxamine 25 mg tablet 25 mg PO HS 03/13/25 03/13/25 History New Prescriptions to Start Prescriptions: Allergies Allergy/AdvReac Type Severity Reaction Status Date / Time adhesive tape Allergy Unknown Unknown Verified 03/13/25 15:44 allergy reaction bupropion (From WELLBUTRIN) Allergy Unknown Unknown Verified 03/05/25 09:27 allergy reaction hydrocodone (From LORTAB) Allergy Unknown Unknown Verified 03/05/25 09:27 allergy reaction Sulfa (Sulfonamide Allergy Unknown Unknown Verified 03/05/25 09:27 Antibiotics) (SULFA allergy (SULFONAMIDE ANTIBIOTICS)) reaction tramadol (From ULTRAM) Allergy Unknown Unknown Verified 03/05/25 09:27 allergy reaction Exam Data for Last 24 hours Vital signs and Labs for Last 24 Hours: Temp Pulse Resp BP Pulse Ox O2 Del Method O2 Flow Rate 98.9 F 94 H 12 139/79 95 Room Air 3 03/13/25 15:10 03/13/25 15:10 03/13/25 15:10 03/13/25 15:10 03/13/25 13:30 03/13/25 15:10 03/13/25 13:30 Laboratory Results - last 24 hr 03/13/25 11:18: WBC 4.4 L, RBC 3.56 L, Hgb 9.1 L, Hct 30.2 L, MCV 84.8, MCH 25.6 L, MCHC 30.1 L, RDW 15.5, Plt Count 315, MPV 10.1, Neut % (Auto) 60.2, Lymph % (Auto) 15.2, [place] % (Auto) 20.8 H, Eos % (Auto) 2.9, Baso % (Auto) 0.7, Neut # (Auto) 2.7, Lymph # (Auto) 0.7, [place] # (Auto) 0.9, Eos # (Auto) 0.1, Baso # (Auto) 0.0, VBG pH 7.31, VBG pCO2 55.9 H, VBG pO2 53.3 H, VBG HCO3 27.4, VBG Total CO2 29.1 H, VBG O2 Saturation 85.1 H, VBG Base Excess 1.1, VBG Lactic Acid 1.3, Sodium 131 L, Potassium 5.0, Chloride 95 L, Carbon Dioxide 31 H, Anion Gap 10.0, BUN 45 H, Creatinine 2.30 H, Estimated GFR 21 L, Est GFR ( Amer) 26 L, Glucose 219 H, Calcium 9.4, Magnesium 1.8, Total Bilirubin 0.7, AST 21, ALT 23, Alkaline Phosphatase 128 H, Troponin I 0.03, Total Protein 7.5, Albumin 3.8, Globulin 3.7 H, Albumin/Globulin Ratio 1.0 L, TSH 0.80 03/13/25 11:25: Urine Color Yellow, Urine Appearance Turbid, Urine pH 7.0, Ur Specific [place] 1.015, Urine Protein Trace A, Urine Glucose (UA) Negative, Urine Ketones Negative, Urine Blood 3+ A, Urine Nitrate Negative, Urine Bilirubin Negative, Urine Urobilinogen 0.2, Ur Leukocyte Esterase 3+ A, Urine RBC 20-50, Urine WBC Tntc, Ur Squamous Epith Cells 10-20, Urine Bacteria Trace, Urine Opiates Screen Negative, Urine Methadone Screen Negative, Ur Phencyclidine Scrn Negative, Ur Amphetamines Screen Negative, U Benzodiazepines Scrn Negative, Urine Cocaine Screen Negative, U Marijuana (THC) Screen Negative 03/13/25 11:55: Ammonia < 9 L 03/13/25 14:21: Troponin I 0.02 I & O for Last 24 hours: Intake & Output 03/10/25 03/11/25 03/12/25 03/13/25 23:59 23:59 23:59 23:59 Weight 92.986 kg Constitutional Constitutional: mild distress, morbidly obese, chronically ill appearing and somnolent *Routine HEENT Exam Head: Present normocephalic Eye: Present PERRL ENT: Present mucous membranes moist *Routine Neck Exam Neck: Present supple *Routine Respiratory Exam Respiratory: Present decreased breath sounds, able to speak in complete sentences and symmetric chest movement *Routine Cardiovascular Exam Cardiovascular: Present irregular rhythm *Routine Abdominal Exam Abdominal: Present soft; Absent tenderness or distended Comments: Hypoactive bowel sounds *Routine Rectal Exam Rectal:: deferred *Routine Genitalia Exam Genitalia:: deferred *Routine Extremities Exam Extremities: Absent edema Comments: Left BKA *Routine Skin Exam Skin: Present intact and dry *Routine Neurological Exam Comments: Alert to self Assessment and Plan *Assessment and plan (1) UTI (urinary tract infection): Status: Acute Category: Medical Code(s): N39.0 - Urinary tract infection, site not specified (2) Chronic kidney disease (CKD): Problem Comment: stage 3 Status: Acute Category: Medical Code(s): N18.9 - Chronic kidney disease, unspecified (3) Recurrent UTI: Status: Acute Category: Medical Code(s): N39.0 - Urinary tract infection, site not specified (4) Incontinent of urine: Status: Acute Category: Medical Code(s): R32 - Unspecified urinary incontinence (5) GERD (gastroesophageal reflux disease): Status: Acute Category: Medical Code(s): K21.9 - Gastro-esophageal reflux disease without esophagitis (6) Below knee amputation: Problem Comment: Left Status: Acute Category: Medical Code(s): S88.119A - Complete traumatic amputation at level between knee and ankle, unspecified lower leg, initial encounter (7) Diabetes mellitus: Status: Acute Qualifiers: Diabetes mellitus complication status: with other specified complication 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 Last cardiac cath, Aug 2022, with patent stents>medical management. Status: Acute Qualifiers: Associated angina: without angina Coronary Disease-Associated Artery/Lesion type: [place] artery [place] vs. transplanted heart: [place] heart Qualified Code(s): I25.10 - Atherosclerotic heart disease of [place] coronary artery without angina pectoris Category: Medical Code(s): I25.10 - Atherosclerotic heart disease of [place] coronary artery without angina pectoris (10) CVA (cerebral vascular accident): Problem Comment: 12/01/22: History of R-ICA stenosis, s/p stent procedure, R-MCA cva with residual left spastic hemiparesis. Status: Acute Qualifiers: CVA mechanism: other Qualified Code(s): I63.8 - Other cerebral infarction Category: Medical Code(s): I63.9 - Cerebral infarction, unspecified Plan Ms. Tovar is a 64-year-old female with a primary medical history of chronic kidney disease stage III, recurrent urinary tract infection, CHF, COPD, diabetes mellitus type 2, insulin-dependent, left BKA, GERD, chronic pain, mood disorder, right mastectomy, urinary incontinence, CVA, CAD, heart cath with stent placement, hypertension, hyperlipidemia. She presented to the emergency department today from [facility] with lethargy and recurrent urinary tract infection. She was recently admitted to [facility] for pneumonia and UTI and was on the ventilator for 2 days. She was discharged home on Levaquin and Augmentin, sensitivity on the urine culture came back and she was switched to Cipro 3 times daily x 3 days. Subsequently she also had 15 teeth extracted before returning to [facility]. When presenting to the ED today she was hemodynamically stable, low-grade fever of 99.8. She is able to answer her birthday, her name, and where she is. When asked if she is confused she states now she is just tired. The emergency room physician contacted hospital medicine for admission and I agreed to accept the patient for further management of her recurrent urinary tract infection. Plan of care as follows: #UTI #CKD #Recurrent UTI ? Patient urinalysis showed turbid urine with trace protein, 3+ blood, 3+ leuk esterase, WBC too numerous to count. When asked if patient is having dysuria, urinary frequency, urinary hesitancy, she does not answer. Patient did complete course of Cipro 3 times a day x 3 days. ?Patient received Invanz 1 g in the ED, will order daily. Renally dosed per pharmacy. ?Urinalysis pending. Previous urine culture from 02/22/2025 shows Enterobacter cloacae-sensitive to Invanz. ?Continue to monitor for signs of infection, blood cultures pending. CBC, CMP, magnesium ordered for a.m. ?Patient was recently hospitalized and intubated for pneumonia at , chest x-ray in the ED personally interpreted by myself shows no acute findings. #Urinary incontinence ? Patient takes Myrbetriq 50 mg daily for urinary incontinence, medication unavailable. #Chronic pain ? Patient has fentanyl patch every 3 days. Patient was due to a fentanyl patch changed this evening, patch removed due to patient's lethargy. Continue to monitor for pain. ? Percocet 5?3 25 twice daily as needed for pain ordered. Monitoring for toxicity. #GERD ? Continue Protonix 20 mg daily. #BKA ?Patient is wheelchair-bound, per [facility] she can normally transfer from wheelchair to bed. PT OT ordered for profound weakness. #Diabetes mellitus ?Patient is insulin-dependent diabetic. Currently takes Lantus 70 units twice daily and is on sliding scale at [facility]. Continue long-acting insulin. ?ACHS fingersticks, SSI. ?A1c 11.4%, on 02/20/2025. #Hypertension #CAD #CVA ? Continue carvedilol 12.5 twice daily, Plavix 75 mg daily, atorvastatin 40 mg daily. Full code Diabetic diet PT OT evaluation VTE?IPC's
[2025-03-13 16:36] LABS: NT Pro Brain Natriuretic Pep. 3620 pg/mL (0-125)
[2025-03-13] MEDS: humaLOG 100 UNITS/ML 10ML VIAL (SSI) SUBCUT ×2 (17:15→20:42)
[2025-03-13 17:17] LABS: POC Glucose,Bedside 175 (70-110)
--- NOTE | 2025-03-13 17:32 | PC.NURSE ---
pt is alert to self only. she knows her name. she came to the floor from the ER around 1510 and has been sleeping since. she does arouse to voice or touch but drifts back to sleep soon after. pt has a history of a right mastectomy and left lower amputation. she came to us with an IV placed in the right antecubital area. she is on 3L NC. call light is within reach. safety measures in place.
--- NOTE | 2025-03-13 18:25 | PC.NURSE ---
after pt had rested for a while we were able to get her awake to answer our orientation questions. she knows where she is and why,the year, and asked us to call her sister Val.
[2025-03-13 18:44] LABS: Troponin I 0.03 ng/ml (0.00-0.034)
[2025-03-13 19:55] LABS: Barbiturates Screen,Urine Negative ng/ml (<200)
[2025-03-13 20:08] LABS: POC Glucose,Bedside 164 (70-110)
--- NOTE | 2025-03-13 20:11 | PC.NURSE ---
spoke with MD Cheng, patient scheduled to receive 70 units insulin glargine and 2 units insulin lispro, patient FSBS 164. Patient did not eat supper. per MD Cheng give lispro and hold glargine for tonight
[2025-03-13] MEDS: BACLOFEN 10MG TABLET 10 MG PO (20:42)
[2025-03-13] MEDS: ATORVASTATIN 40MG TABLET 40 MG PO (20:42)
[2025-03-13] MEDS: PANTOPRAZOLE 40MG TABLET 40 MG PO (20:42)
[2025-03-13] MEDS: CARVEDILOL 12.5MG TABLET 12.5 MG PO (20:42)
[2025-03-14] VITALS (7 sets, daily range): BP systolic 104–111; BP diastolic 50–59; PULSE 66–76; RESP 16–20; TEMP 36.6–36.8; O2SAT 95–99; BMI 37.3
[2025-03-14] MEDS: ACETAMINOPHEN 325MG TAB 650 MG PO ×2 (02:03→16:29)
[2025-03-14 05:48] LABS: POC Glucose,Bedside 132 (70-110)
[2025-03-14 06:35] LABS: Hematocrit 30.1 % (37.0-47.0); Hemoglobin 9.4 g/dL (12.2-16.2); Immature Granulocytes % 0.2 %; Mean Corpuscular HGB Conc 31.2 g/dL (31.8-35.4); Mean Corpuscular Hemoglobin 26.6 pg (27.0-31.2); Mean Corpuscular Volume 85.0 fl (81-99); Nucleated Red Blood Cells % 0 %; Platelet Count 313 K/mm3 (142-424); Red Blood Count 3.54 M/mm3 (4.20-5.40); Red Cell Distribution Width-SD 48.6 fL; White Blood Count 4.8 K/mm3 (4.8-10.8)
[2025-03-14 07:22] LABS: Alanine Aminotransferase 26 U/L (12-78); Albumin Level 3.5 g/dl (3.5-5.0); Albumin/Globulin Ratio 1.1 (1.1-1.8); Alkaline Phosphatase 119 U/L (38-126); Anion Gap 12.0 mEq/L (5-15); Aspartate Amino Transferase 27 U/L (14-36); Bilirubin,Total 0.5 mg/dl (0.2-1.3); Blood Urea Nitrogen 47 mg/dl (7-17); Calcium 9.2 mg/dl (8.4-10.2); Carbon Dioxide 28 mmol/L (22.0-30.0); Chloride 97 mmol/L (98-107); Creatinine Clearance Estimated 28 mL/min (50-200); Creatinine,Serum 2.90 mg/dl (0.52-1.04); Estimated Glomerular Filt Rate 16 ml/min (>60); GFR (African American) 20 ML/MIN (>60); Globulin 3.1 g/dL (1.3-3.2); Glucose 125 mg/dl (74-100); Magnesium 1.9 mg/dl (1.6-2.3); Potassium 5.0 mmoL/L (3.5-5.1); Sodium 132 mmol/L (136-145); Total Protein,Serum 6.6 g/dl (6.3-8.2)
--- NOTE | 2025-03-14 08:22 | CA_ITS ---
APPROVED REPORT EXAM: Comprehensive 2D, Doppler, and color-flow Echocardiogram Tumbling Instructor: Denise Cash, RCS, RVS Ht: 5 ft 0 in Wt: 210lbs BSA: 1.91 BP: 120/80 mmHg Rhythm: Irregular Indications: CHF 2D Dimensions IVSd 1.46 cm F: 0.6-1.0 LVEF (Visual) 58.10 % PWd 1.02 cm F: 0.6 - 1.0 LA Volume 102.20 mL LVDd 4.88 cm F: 3.9 - 5.3 LA Volume Index 53.51 mL/m2 (M/F) 16-34 LVDs 3.38 cm F: 2.2 - 3.5 EF AP4 46.20 % Left Atrium 3.51 cm F: 2.7 - 3.8 GL Strain -10.5 % M-Mode Dimensions RVDd 2.55 cm (0.9-2.6) LA Diam 3.73 cm (1.9-4.0) LVDd 5.17 cm (3.5-5.7) LVDs 3.98 cm (3.5-5.7) IVSd 1.18 cm (0.6-1.1) PWd 1.18 cm (0.6-1.1) EF (Teich) 45.90% EPSs 1.40 cm FS 23.00% EDV (Teich) 127.80 mL TAPSE 2.12 (<1.7) ESV (Teich) 69.20 mL LV Diastology E Decel Time 210 (160-240 msec) E/A Ratio 1.25 MED A' 8.80 cm/s Aortic Valve MIKI Index 0.76 cm2/m2 AoV Peak Doug. 175.0 (50-130 cm/s) AO Peak GR. 12.30 mmHg AO Mean GR. 7.60 (<5 mmHg) AO VTI 41.1 (18-25 cm) MIKI (VTI) 1.48 (2.5-4.5 cm2) Mitral Valve MV A Velocity 91.0 (40-130 cm/s) E/A Ratio 1.25 Left Ventricle The left ventricle is normal size. The left ventricular systolic function is mildly reduced. There is increased LV wall thickness. There is mild global hypokinesis present. Grade 1 diastolic dysfunction is present. LVEF is 45%. Right Ventricle The right ventricle is normal size. The right ventricular systolic function is normal. Atria Left atrium is mildly dilated. Right atrium is mildly dilated. There is no Doppler evidence of interatrial shunt. Aortic Valve The aortic valve is mildly thickened. There is no aortic valvular stenosis. Trace aortic regurgitation. Mitral Valve The mitral valve is normal in structure. No evidence of mitral valve stenosis. Mild mitral regurgitation. Tricuspid Valve Tricuspid valve is grossly normal in structure and function. Trace tricuspid regurgitation. There is insufficient TR jet to estimate RVSP. Pulmonic Valve The pulmonary valve is normal in structure. Trace pulmonic regurgitation. Great Vessels The aortic root is normal in size. IVC is normal in size and collapses >50% with inspiration. Pericardium There is no pericardial effusion. Other Information Study Quality: Technically Difficult Conclusion Technically difficult study due to poor accoustic windows. Mildly reduced LV systolic function (LVEF 45%). Mild biatrial dilation. Mild MR. Electronically signed by : Kirstie Hagan MD 03/14/2025 13:07:19
[2025-03-14] MEDS: CLOPIDOGREL 75MG TAB 75 MG PO (08:38)
[2025-03-14] MEDS: CARVEDILOL 12.5MG TABLET 12.5 MG PO (08:38)
[2025-03-14] MEDS: BACLOFEN 10MG TABLET 10 MG PO ×3 (08:38→20:54)
[2025-03-14 08:46] LABS: POC Glucose,Bedside 142 (70-110)
[2025-03-14] MEDS: FUROSEMIDE 40MG/4ML VIAL 40 MG IV (08:53)
--- NOTE | 2025-03-14 09:57 | HMH.OTEV ---
OT Inpatient Evaluation Rehab OT IP Evaluation Start: 03/13/25 15:00 Freq: ONCE Status: Active Protocol: Document 03/14/25 09:52 [facility] (Rec: 03/14/25 09:57 [facility] [id number]) Rehab OT IP Assessment Subjective History Pt admitted on 03/13/25 due to UTI. History and physical: Ms. Tovar is a 64-year-old female who resides at [facility]. She presented to the emergency room via EMS today with complaints of lethargy and continued urinary tract infection. Per [facility] staff patient is normally alert and oriented, but today was found to be more lethargic and somnolent. Patient able to tell her name, birthday, where she is. But states she is very tired and unable to answer any more questions. She was admitted to the hospital for recurrent urinary tract infection, with failed outpatient therapy. Previous urine culture from 02/22/2025 shows Enterobacter cloacae. Culture and sensitivity show sensitivity to Invanz. Subjective Prior to being in the hospital, pt lived at [facility]. Pt required assistance with all ADLs and transfers to wheelchair (2 person assist). Pt dependent upon staff for completion of all IADLs. Objective Patient Orientation Person,Birthday Left Upper Extremity Mod Limitation 50% Gross ROM Wrist Limitations of Muscle Weakness Range of Motion Bed Mobility bed mobility-scooting,bed mobility - supine/sit Assist Level Maximum x 2 (75% assist) Rehab OT IP prob,goals,plan Problems Date of Evaluation: 03/14/25 OT IP Problems Bed Mobility,Transfers,Balance,Self care,Safety Rehab Potential Rehab Potential Good Equipment Needs Assistive Devices Rolling / Wheeled Walker,Wheelchair Plan OT intervention Plan Bed Mobility,Transfers,Balance,Self care,Safety, Therapeutic Exercise OT Plan Frequency Daily Duration LOS Discharge Goals Bed Mobility Ability Assistance x1 Sit to Stand Chair Maximum x 1 (75% assist) Transfer Ability Chair Transfer Maximum x 1 (75% assist) Ability Chair Transfer Stand Pivot Technique Lower Body Dressing Moderate Assistance Ability Upper Body Dressing Minimal Assistance Ability Bathing Ability Moderate Assistance Performing Toilet Moderate Assistance Hygiene Ability Commode/Toilet Stand Pivot Transfer Technique Discharge Plan OT Discharge Plan Pt will continue to be seen for OT services while at [facility]. Pt would benefit from short term rehab once she returns to SNF. Continued skilled therapy is important in order for patient to improve strength, safety, endurance, ADL independence, and functional transfers to reach PLOF. Eval Complexity Eval Charge Codes 87491 - Moderate Complexity PHYSICIAN CERTIFICATION: I certify the specified therapy services for Eileen Tovar are required, authorized, and reviewed every 30 days.
--- NOTE | 2025-03-14 10:31 | HMH.PTEV ---
Physical Therapy Evaluation Rehab PT IP Evaluation Start: 03/13/25 15:00 Freq: ONCE Status: Active Protocol: Document 03/14/25 09:00 TIFFANIE (Rec: 03/14/25 10:31 PHODIONNE [id number]) Subjective/History History History 64-year-old female who resides at [facility] . She presented to the emergency room via EMS today with complaints of lethargy and continued urinary tract infection. Per [facility] staff patient is normally alert and oriented, but today was found to be more lethargic and somnolent. Pt no more alert. 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 She reports she lives at [facility], uses a w/c for all mobility, requires 2 person assist to transfer to her w/c, and requires assistance with all ADLs at baseline. Subjective Subjective Pt reports feeling cold and tired this am, but better than yesterday and agrees to sit at EOB. [facility] How much help from another person do you currently need... Turning from your A lot back to your side while in a flat bed without using bedrails? Moving from lying on A lot back to sitting on the side of a flat bed without using bedrails? Moving to and from a A lot bed to a chair ( including a wheelchair)? Standing up from a A lot chair using your arms? (e.g., wheelchair, bedside chair) Walking in hospital Total room? Climbing 3-5 steps Total with a railing? Mobility Score 10 Mobility Level [facility] Mobility 4 Move to chair/commode Mobility Calculator Rehab PT IP Eval Objective Appearance Patient Behavior Appropriate Patient Orientation Person,Place,Time Difficulty following none instructions Speech Pattern Clear Ambulation Patient Able to No Ambulate Balance Ability to Arise Able, uses arms to help Sitting Balance Leans or slides in chair Dynamic Sitting Fair Balance Ability Transfers Bed Transfer Ability Maximum x 1 (75% assist) MMT LUE PT MMT ABN Abnormal MMT Grade grossly 2/5 Rehab PT IP prob,goals,plan Problems Date of Evaluation: 03/14/25 PT IP Problems Bed Mobility,Transfers Rehab Potential Rehab Potential Good Plan PT Intervention Plan Bed Mobility,Transfers,Therapeutic Exercise PT Plan Frequency Daily Duration LOS Discharge Goals Bed Transfer Ability Moderate x 2 (50% assist) Sit to Stand Chair Maximum x 2 (75% assist) Transfer Ability Discharge Plan PT Discharge Plan Pt is currently most appropriate to return to SNF once medically stable for d/c. Skilled acute therapy services are indicated to improve general strength and transfer ability in order to return pt to PLOF. Eval Complexity Eval Charge Codes 52334 - High Complexity PHYSICIAN CERTIFICATION: I certify the specified therapy services for Eileen Tovar are required, authorized, and reviewed every 30 days.
[2025-03-14 11:16] LABS: POC Glucose,Bedside 233 (70-110)
[2025-03-14] MEDS: humaLOG 100 UNITS/ML 10ML VIAL (SSI) SUBCUT ×3 (11:21→20:51)
[2025-03-14] MEDS: ERTAPENEM SODIUM 0.5 GM in 0.9 % SODIUM CHLORIDE 50 ML IV (11:22)
--- NOTE | 2025-03-14 11:43 | EXP.ACUTE.PN ---
Subjective *Date: 03/16/25 *Time: 13:23 Interval history: Patient is much more alert today. Able to answer all questions appropriately, she states that she got decent sleep last night. She denies any pain, nausea, vomiting. Medical Exam Vital signs and Labs for Last 24 Hours: Vital Signs Temp Pulse Pulse Resp BP BP Pulse Ox 03/14/25 11:00 03/14/25 08:43 03/14/25 08:00 96 03/14/25 08:00 96 03/14/25 08:00 97.9 F 76 16 110/58 L 98 03/14/25 07:00 03/14/25 06:14 97 03/14/25 05:00 03/14/25 04:00 98.0 F 76 16 111/50 L 99 03/14/25 03:00 03/14/25 01:00 03/13/25 23:00 03/13/25 21:00 03/13/25 20:00 03/13/25 19:30 98.2 F 89 16 116/61 97 03/13/25 18:47 03/13/25 17:00 03/13/25 15:34 98.1 F 91 H 17 122/73 95 03/13/25 15:30 95 03/13/25 15:10 98.9 F 94 H 12 139/79 03/13/25 15:00 03/13/25 14:30 17 118/66 03/13/25 14:00 16 131/83 03/13/25 13:30 92 H 18 124/77 95 03/13/25 13:01 68 19 151/85 H 100 03/13/25 12:30 88 12 142/79 H 100 03/13/25 12:00 88 12 133/74 98 O2 Del Method O2 Flow Rate 03/14/25 11:00 Nasal Cannula 3 03/14/25 08:43 Nasal Cannula 3 03/14/25 08:00 Nasal Cannula 3 03/14/25 08:00 Nasal Cannula 3 03/14/25 08:00 Nasal Cannula 03/14/25 07:00 Nasal Cannula 3 03/14/25 06:14 Nasal Cannula 3 03/14/25 05:00 Nasal Cannula 3 03/14/25 04:00 Nasal Cannula 3 03/14/25 03:00 Nasal Cannula 3 03/14/25 01:00 Nasal Cannula 3 03/13/25 23:00 Nasal Cannula 3 03/13/25 21:00 Nasal Cannula 3 03/13/25 20:00 Nasal Cannula 3 03/13/25 19:30 Nasal Cannula 3 03/13/25 18:47 Nasal Cannula 3 03/13/25 17:00 Nasal Cannula 3 03/13/25 15:34 Nasal Cannula 03/13/25 15:30 Nasal Cannula 3 03/13/25 15:10 Room Air 03/13/25 15:00 Nasal Cannula 3 03/13/25 14:30 03/13/25 14:00 03/13/25 13:30 Nasal Cannula 3 03/13/25 13:01 03/13/25 12:30 03/13/25 12:00 Intake and Output 03/13/25 03/14/25 03/14/25 23:59 07:59 15:59 Intake Total 1040 / 1040 360 / 360 Output Total 250 / 250 Balance 1040 / 1040 -250 / 110 360 / 110 Intake: Intake, Oral Amount 1040 / 1040 360 / 360 Output: Output, Urine Amount 250 / 250 Other: Weight 92.125 kg Patient Weight 03/14/25 23:59 Weight 92.125 kg Laboratory Results - last 24 hr 03/13/25 11:18: Troponin I 0.03, NT-Pro-B Natriuret Pep 3620 H, TSH 0.80 03/13/25 11:25: Urine Color Yellow, Urine Appearance Turbid, Urine pH 7.0, Ur Specific [place] 1.015, Urine Protein Trace A, Urine Glucose (UA) Negative, Urine Ketones Negative, Urine Blood 3+ A, Urine Nitrate Negative, Urine Bilirubin Negative, Urine Urobilinogen 0.2, Ur Leukocyte Esterase 3+ A, Urine RBC 20-50, Urine WBC Tntc, Ur Squamous Epith Cells 10-20, Urine Bacteria Trace, Urine Opiates Screen Negative, Urine Methadone Screen Negative, Ur Barbituates Screen Negative, Ur Phencyclidine Scrn Negative, Ur Amphetamines Screen Negative, U Benzodiazepines Scrn Negative, Urine Cocaine Screen Negative, U Marijuana (THC) Screen Negative 03/13/25 11:55: Ammonia < 9 L 03/13/25 14:21: Troponin I 0.02 03/13/25 17:09: POC Glucose 175 H 03/13/25 17:51: Troponin I 0.03 03/13/25 19:54: POC Glucose 164 H 03/14/25 05:40: POC Glucose 132 H 03/14/25 05:59: WBC 4.8, RBC 3.54 L, Hgb 9.4 L, Hct 30.1 L, MCV 85.0, MCH 26.6 L, MCHC 31.2 L, RDW 15.7, Plt Count 313, MPV 10.0, Neut % (Auto) 46.1, Lymph % (Auto) 22.4, [place] % (Auto) 25.3 H, Eos % (Auto) 5.2, Baso % (Auto) 0.8, Neut # (Auto) 2.2, Lymph # (Auto) 1.1, [place] # (Auto) 1.2 H, Eos # (Auto) 0.3, Baso # (Auto) 0.0, Sodium 132 L, Potassium 5.0, Chloride 97 L, Carbon Dioxide 28, Anion Gap 12.0, BUN 47 H, Creatinine 2.90 H D, Estimated Creat Clear 28, Estimated GFR 16 L*, Est GFR ( Amer) 20 L D, Glucose 125 H D, Calcium 9.2, Magnesium 1.9, Total Bilirubin 0.5, AST 27 D, ALT 26, Alkaline Phosphatase 119, Total Protein 6.6, Albumin 3.5, Globulin 3.1, Albumin/Globulin Ratio 1.1 03/14/25 08:37: POC Glucose 142 H 03/14/25 11:09: POC Glucose 233 H I & O for Labs for Last 24 Hours: Intake & Output 03/11/25 03/12/25 03/13/25 03/14/25 23:59 23:59 23:59 23:59 Intake Total 1040 / 1040 360 / 360 Output Total 250 / 250 Balance 1040 / 1040 110 / 110 Weight 86.772 kg 92.125 kg Microbiology Reports for the Last 24 Hours: Microbiology 03/13/25 11:15 Blood Blood Culture - Preliminary NO GROWTH AFTER 24 HOURS 03/13/25 11:25 Urine,Catheterized Urine Culture - Preliminary Gram Negative Rods Constitutional: Present no acute distress, obese, chronically ill appearing and cooperative Head: Present atraumatic Eyes: Present as per HPI ENT: Present normal exam Neck: Present normal inspection Respiratory: Present CTA bilaterally, normal respiratory effort, able to speak in complete sentences and symmetric chest movement Cardiac: Present Reg Rate and Rhythm; Absent No Murmur GI: Present soft and normal bowel sounds; Absent distention or tenderness Rectal (female): Present deferred (female): Present deferred Extremities: Present normal inspection; Absent edema Comment:: Left BKA Skin: Present intact and dry; Absent wounds Neuro: Present awake and oriented x 3 Assessment and Plan *Assessment and plan (1) UTI (urinary tract infection): Status: Acute Category: Medical Code(s): N39.0 - Urinary tract infection, site not specified (2) Chronic kidney disease (CKD): Problem Comment: stage 3 Status: Acute Category: Medical Code(s): N18.9 - Chronic kidney disease, unspecified (3) Recurrent UTI: Status: Acute Category: Medical Code(s): N39.0 - Urinary tract infection, site not specified (4) Incontinent of urine: Status: Acute Category: Medical Code(s): R32 - Unspecified urinary incontinence (5) GERD (gastroesophageal reflux disease): Status: Acute Category: Medical Code(s): K21.9 - Gastro-esophageal reflux disease without esophagitis (6) Below knee amputation: Problem Comment: Left Status: Acute Category: Medical Code(s): S88.119A - Complete traumatic amputation at level between knee and ankle, unspecified lower leg, initial encounter (7) Diabetes mellitus: Status: Acute Qualifiers: Diabetes mellitus complication status: with other specified complication Diabetes mellitus emt 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 insulin use: unspecified care home insulin use status Diabetes mellitus type: other specified (including [place]) Qualified Code(s): E13.69 - Other specified diabetes mellitus with other specified complication Category: Medical Code(s): E11.9 - Type 2 diabetes mellitus without complications (8) Hypertension: Status: Acute Qualifiers: Hypertension type: primary hypertension Qualified Code(s): I10 - Essential (primary) hypertension Category: Medical Code(s): I10 - Essential (primary) hypertension (9) CAD (coronary artery disease): Problem Comment: PCI/CLIFF 2017. Last cardiac cath, Aug 2022, with patent stents>medical management. Status: Acute Qualifiers: Associated angina: without angina Coronary Disease-Associated Artery/Lesion type: [place] artery [place] vs. 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 Status: Acute Qualifiers: CVA mechanism: other Qualified Code(s): I63.8 - Other cerebral infarction Category: Medical Code(s): I63.9 - Cerebral infarction, unspecified Plan Ms. Tovar is a 64-year-old female with a primary medical history of chronic kidney disease stage III, recurrent urinary tract infection, CHF, COPD, diabetes mellitus type 2, insulin-dependent, left BKA, GERD, chronic pain, mood disorder, right mastectomy, urinary incontinence, CVA, CAD, heart cath with stent placement, hypertension, hyperlipidemia. She presented to the emergency department today from [facility] with lethargy and recurrent urinary tract infection. She was recently admitted to [facility] for pneumonia and UTI and was on the ventilator for 2 days. She was discharged home on Levaquin and Augmentin, sensitivity on the urine culture came back and she was switched to Cipro 3 times daily x 3 days. Subsequently she also had 15 teeth extracted before returning to [facility]. When presenting to the ED today she was hemodynamically stable, low-grade fever of 99.8. She is able to answer her birthday, her name, and where she is. When asked if she is confused she states now she is just tired. The emergency room physician contacted hospital medicine for admission and I agreed to accept the patient for further management of her recurrent urinary tract infection. Plan of care as follows: #UTI #CKD #Recurrent UTI ? Patient urinalysis showed turbid urine with trace protein, 3+ blood, 3+ leuk esterase, WBC too numerous to count. Patient denies dysuria, urinary frequency, urinary hesitancy. She states that she has been dealing with his urinary tract infection for 3 to 4 weeks. She is taken multiple rounds of antibiotics without resolution. ?Patient received Invanz 1 g in the ED, will order daily. Renally dosed per pharmacy. ?Urinalysis shows gram-negative bacteria. Previous urine culture from 02/22/2025 shows Enterobacter cloacae-sensitive to Invanz. ?Continue to monitor for signs of infection, preliminary blood cultures showed no growth after 24 hours. CBC, CMP, magnesium ordered for a.m. ?Patient baseline creatinine 2.3, creatinine today 2.9. Patient to receive one-time dose Lasix 40 mg IV for further diuresis. Monitor I's and O's. ?Patient was recently hospitalized and intubated for pneumonia at , chest x-ray in the ED personally interpreted by myself shows no acute findings. #Urinary incontinence ? Patient takes Myrbetriq 50 mg daily for urinary incontinence, medication unavailable. #Chronic pain ? Patient has fentanyl patch every 3 days. Patient was due to have a fentanyl patch changed this evening, patch removed due to patient's lethargy. Continue to monitor for pain. ? Percocet 5?3 25 twice daily as needed for pain ordered. Monitoring for toxicity. #GERD ? Continue Protonix 20 mg daily. #BKA ?Patient is wheelchair-bound, per [facility] she can normally transfer from wheelchair to bed. PT OT ordered for profound weakness. #Diabetes mellitus ?Patient is insulin-dependent diabetic. Currently takes Lantus 70 units twice daily and is on sliding scale at [facility]. Continue long-acting insulin. ?ACHS fingersticks, SSI. ?A1c 11.4%, on 02/20/2025. #Hypertension #CAD #CVA ? Continue carvedilol 12.5 twice daily, Plavix 75 mg daily, atorvastatin 40 mg daily. Full code Diabetic diet PT OT evaluation VTE?IPC's
[2025-03-14] MEDS: OXYCODONE 5MG W/APAP 325MG TABLET 1 EACH PO ×2 (12:07→18:46)
[2025-03-14 16:15] LABS: Chloride 92 mmol/L (98-107); Potassium 4.9 mmoL/L (3.5-5.1); Sodium 126 mmol/L (136-145)
[2025-03-14 16:18] LABS: Anion Gap 10.9 mEq/L (5-15); Blood Urea Nitrogen 54 mg/dl (7-17); Carbon Dioxide 28 mmol/L (22.0-30.0); Creatinine Clearance Estimated 31 mL/min (50-200); Creatinine,Serum 2.60 mg/dl (0.52-1.04); Estimated Glomerular Filt Rate 18 ml/min (>60); GFR (African American) 22 ML/MIN (>60)
[2025-03-14 16:19] LABS: Calcium 8.6 mg/dl (8.4-10.2); Glucose 182 mg/dl (74-100)
--- NOTE | 2025-03-14 17:26 | PC.NURSE ---
pt a&ox4. complained of intermittent pain that was relieved by PRN medications. purewick in place draining cloudy foul smelling urine. occasional pain on urination. requiring 3LNC. treated with SSI per protocol based on fsbs. abx given per mar. no needs at this time. call light within reach.
[2025-03-14 20:25] LABS: POC Glucose,Bedside 170 (70-110)
[2025-03-14] MEDS: ONDANSETRON 4MG/2ML VIAL 4 MG IV (20:51)
[2025-03-14] MEDS: INSULIN GLARGINE 100 UNITS/ML 3ML FLEXPEN 70 UNIT SUBCUT (20:53)
[2025-03-14] MEDS: PANTOPRAZOLE 40MG TABLET 40 MG PO (20:54)
[2025-03-14] MEDS: ATORVASTATIN 40MG TABLET 40 MG PO (20:54)
[2025-03-15] VITALS (7 sets, daily range): BP systolic 106–116; BP diastolic 53–71; PULSE 47–77; RESP 18–20; TEMP 36.6–37.3; O2SAT 92–97; BMI 37.5
[2025-03-15] MEDS: ACETAMINOPHEN 325MG TAB 650 MG PO (02:12)
[2025-03-15 05:37] LABS: POC Glucose,Bedside 130 (70-110)
[2025-03-15] MEDS: PHENAZOPYRIDINE 200MG TABLET 100 MG PO (05:43)
--- NOTE | 2025-03-15 05:45 | PC.NURSE ---
patient complained of pain and burning when urinating, notified Dr. Cheng, pyridium ordered and administered
[2025-03-15 06:27] LABS: Hematocrit 26.3 % (37.0-47.0); Hemoglobin 8.4 g/dL (12.2-16.2); Immature Granulocytes % 0.4 %; Mean Corpuscular HGB Conc 31.9 g/dL (31.8-35.4); Mean Corpuscular Hemoglobin 26.2 pg (27.0-31.2); Mean Corpuscular Volume 81.9 fl (81-99); Nucleated Red Blood Cells % 0 %; Platelet Count 345 K/mm3 (142-424); Red Blood Count 3.21 M/mm3 (4.20-5.40); Red Cell Distribution Width-SD 46.2 fL; White Blood Count 4.9 K/mm3 (4.8-10.8)
[2025-03-15 06:38] LABS: Alanine Aminotransferase 27 U/L (12-78); Albumin Level 2.9 g/dl (3.5-5.0); Albumin/Globulin Ratio 0.8 (1.1-1.8); Alkaline Phosphatase 116 U/L (38-126); Anion Gap 11.5 mEq/L (5-15); Aspartate Amino Transferase 27 U/L (14-36); Blood Urea Nitrogen 53 mg/dl (7-17); Calcium 9.0 mg/dl (8.4-10.2); Carbon Dioxide 28 mmol/L (22.0-30.0); Chloride 93 mmol/L (98-107); Creatinine Clearance Estimated 28 mL/min (50-200); Creatinine,Serum 2.90 mg/dl (0.52-1.04); Estimated Glomerular Filt Rate 16 ml/min (>60); GFR (African American) 20 ML/MIN (>60); Globulin 3.7 g/dL (1.3-3.2); Glucose 121 mg/dl (74-100); Potassium 4.5 mmoL/L (3.5-5.1); Sodium 128 mmol/L (136-145); Total Protein,Serum 6.6 g/dl (6.3-8.2)
[2025-03-15 07:01] LABS: Bilirubin,Total 0.1 mg/dl (0.2-1.3)
[2025-03-15] MEDS: OXYCODONE 5MG W/APAP 325MG TABLET 1 EACH PO ×2 (08:52→20:55)
[2025-03-15] MEDS: LACTATED RINGERS 1000ML 500 ML 250 ML IV (08:52)
[2025-03-15] MEDS: CARVEDILOL 12.5MG TABLET 12.5 MG PO ×2 (08:53→20:54)
[2025-03-15] MEDS: CLOPIDOGREL 75MG TAB 75 MG PO (08:53)
[2025-03-15] MEDS: BACLOFEN 10MG TABLET 10 MG PO ×3 (08:53→20:54)
[2025-03-15 10:33] LABS: POC Glucose,Bedside 174 (70-110)
[2025-03-15] MEDS: PHENAZOPYRIDINE 200MG TABLET 200 MG PO (12:20)
[2025-03-15] MEDS: ERTAPENEM SODIUM 0.5 GM in 0.9 % SODIUM CHLORIDE 50 ML IV (12:20)
[2025-03-15] MEDS: humaLOG 100 UNITS/ML 10ML VIAL (SSI) SUBCUT ×3 (12:21→21:00)
--- NOTE | 2025-03-15 12:37 | P.PN_ITS ---
<Statement entered by Rianna Swan MD - 03/23/25 17:30> Agree with COMPOUNDER note as documented Subjective *Date: 03/15/25 *Time: 12:37 Interval history: Patient alert and oriented this morning, resting in bed. She states she is having intermittent pain with urination. Will increase Pyridium to 200 mg 3 times daily as needed. Patient's urine culture came back positive for E. coli ESBL, sensitive to Invanz. Continue antibiotic course. Kidney function slightly worse baseline 2.3, 2.9 this morning. Will initiate fluids, recheck this afternoon. Medical Exam Vital signs and Labs for Last 24 Hours: Vital Signs Temp Pulse Resp BP Pulse Ox O2 Del Method O2 Flow Rate 03/15/25 11:00 Nasal Cannula 2 03/15/25 08:55 Nasal Cannula 2 03/15/25 08:00 98.2 F 47 L 18 107/54 L 95 Nasal Cannula 1 03/15/25 08:00 Nasal Cannula 2 03/15/25 06:48 Nasal Cannula 1 03/15/25 06:08 94 L Nasal Cannula 2 03/15/25 05:00 Nasal Cannula 2 03/15/25 04:00 97.8 F 74 20 116/71 96 Nasal Cannula 2 03/15/25 03:00 Nasal Cannula 2 03/15/25 01:00 Nasal Cannula 2 03/14/25 23:00 Nasal Cannula 2 03/14/25 21:00 Nasal Cannula 3 03/14/25 20:00 Nasal Cannula 3 03/14/25 20:00 98.2 F 72 20 104/59 L 95 Nasal Cannula 3 03/14/25 18:38 Nasal Cannula 3 03/14/25 18:22 Nasal Cannula 2 03/14/25 18:22 98 Nasal Cannula 3 03/14/25 16:39 Nasal Cannula 3 03/14/25 16:00 95 Nasal Cannula 3 03/14/25 15:53 98.1 F 66 17 104/58 L 96 03/14/25 15:00 Nasal Cannula 3 03/14/25 13:00 Nasal Cannula 3 Intake and Output 03/14/25 03/15/25 03/15/25 23:59 07:59 15:59 Intake Total 240 / 1400 440 / 740 300 / 740 Output Total 275 / 275 Balance 240 / 1150 165 / 465 300 / 465 Intake: Intake, Oral Amount 240 / 1400 440 / 740 300 / 740 Output: Output, Urine Amount 275 / 275 Other: Weight 92.669 kg Patient Weight 03/15/25 23:59 Weight 92.669 kg Laboratory Results - last 24 hr 03/14/25 15:57: Sodium 126 L, Potassium 4.9, Chloride 92 L, Carbon Dioxide 28, Anion Gap 10.9, BUN 54 H, Creatinine 2.60 H, Estimated Creat Clear 31, Estimated GFR 18 L*, Est GFR ( Amer) 22 L, Glucose 182 H D, Calcium 8.6 03/14/25 16:24: POC Glucose 174 H 03/14/25 20:00: POC Glucose 170 H 03/15/25 05:30: POC Glucose 130 H 03/15/25 06:00: WBC 4.9, RBC 3.21 L, Hgb 8.4 L, Hct 26.3 L, MCV 81.9, MCH 26.2 L , MCHC 31.9, RDW 15.4, Plt Count 345, MPV 10.1, Neut % (Auto) 61.8, Lymph % (Auto) 14.7, [place] % (Auto) 15.3 H, Eos % (Auto) 7.2, Baso % (Auto) 0.6, Neut # (Auto) 3.0, Lymph # (Auto) 0.7, [place] # (Auto) 0.8, Eos # (Auto) 0.4, Baso # (Auto) 0.0, Sodium 128 L, Potassium 4.5, Chloride 93 L, Carbon Dioxide 28, Anion Gap 11.5, BUN 53 H, Creatinine 2.90 H, Estimated Creat Clear 28, Estimated GFR 16 L*, Est GFR ( Amer) 20 L, Glucose 121 H D, Calcium 9.0, Total Bilirubin 0.1 L, AST 27, ALT 27, Alkaline Phosphatase 116, Total Protein 6.6, Albumin 2.9 L D, Globulin 3.7 H, Albumin/Globulin Ratio 0.8 L I & O for Labs for Last 24 Hours: Intake & Output 03/12/25 03/13/25 03/14/25 03/15/25 23:59 23:59 23:59 23:59 Intake Total 1040 / 1040 960 / 1400 740 / 740 Output Total 250 / 250 275 / 275 Balance 1040 / 1040 710 / 1150 465 / 465 Weight 86.772 kg 92.125 kg 92.669 kg Microbiology Reports for the Last 24 Hours: Microbiology 03/13/25 12:08 Blood Blood Culture - Preliminary NO GROWTH AFTER 48 HOURS 03/13/25 11:15 Blood Blood Culture - Preliminary NO GROWTH AFTER 48 HOURS 03/13/25 11:25 Urine,Catheterized Urine Culture - Final Escherichia coli Constitutional: Present no acute distress, obese, chronically ill appearing and cooperative Head: Present atraumatic Eyes: Present as per HPI ENT: Present normal exam Neck: Present normal inspection Respiratory: Present CTA bilaterally, normal respiratory effort, able to speak in complete sentences and symmetric chest movement Cardiac: Present Reg Rate and Rhythm; Absent No Murmur GI: Present soft and normal bowel sounds; Absent distention or tenderness Rectal (female): Present deferred (female): Present deferred Extremities: Present normal inspection; Absent edema Comment:: Left BKA Skin: Present intact and dry; Absent wounds Neuro: Present awake and oriented x 3 Assessment and Plan *Assessment and plan (1) UTI (urinary tract infection): Status: Acute Category: Medical Code(s): N39.0 - Urinary tract infection, site not specified (2) Chronic kidney disease (CKD): Problem Comment: stage 3 Status: Acute Category: Medical Code(s): N18.9 - Chronic kidney disease, unspecified (3) Recurrent UTI: Status: Acute Category: Medical Code(s): N39.0 - Urinary tract infection, site not specified (4) Incontinent of urine: Status: Acute Category: Medical Code(s): R32 - Unspecified urinary incontinence (5) GERD (gastroesophageal reflux disease): Status: Acute Category: Medical Code(s): K21.9 - Gastro-esophageal reflux disease without esophagitis (6) Below knee amputation: Problem Comment: Left Status: Acute Category: Medical Code(s): S88.119A - Complete traumatic amputation at level between knee and ankle, unspecified lower leg, initial encounter (7) Diabetes mellitus: Status: Acute Qualifiers: Diabetes mellitus type: other specified (including [place]) Diabetes mellitus intermodal customer service insulin use: unspecified intermodal customer service insulin use status Diabetes mellitus complication status: with other specified complication Qualified Code(s): E13.69 - Other specified diabetes mellitus with other specified complication Category: Medical Code(s): E11.9 - Type 2 diabetes mellitus without complications (8) Hypertension: Status: Acute Qualifiers: Hypertension type: primary hypertension Qualified Code(s): I10 - Essential (primary) hypertension Category: Medical Code(s): I10 - Essential (primary) hypertension (9) CAD (coronary artery disease): Problem Comment: PCI/CLIFF 2017. Last cardiac cath, Aug 2022, with patent stents>medical management. Status: Acute Qualifiers: Coronary Disease-Associated Artery/Lesion type: [place] artery [place] vs. transplanted heart: [place] heart Associated angina: without angina Qualified Code(s): I25.10 - Atherosclerotic heart disease of [place] coronary artery without angina pectoris Category: Medical Code(s): I25.10 - Atherosclerotic heart disease of [place] coronary artery without angina pectoris (10) CVA (cerebral vascular accident): Problem Comment: 12/01/22: History of R-ICA stenosis, s/p stent procedure, R-MCA cva with residual left spastic hemiparesis. Status: Acute Qualifiers: CVA mechanism: other Qualified Code(s): I63.8 - Other cerebral infarction Category: Medical Code(s): I63.9 - Cerebral infarction, unspecified Plan Ms. Tovar is a 64-year-old female with a primary medical history of chronic kidney disease stage III, recurrent urinary tract infection, CHF, COPD, diabetes mellitus type 2, insulin-dependent, left BKA, GERD, chronic pain, mood disorder, right mastectomy, urinary incontinence, CVA, CAD, heart cath with stent placement, hypertension, hyperlipidemia. She presented to the emergency department today from [facility] with lethargy and recurrent urinary tract infection. She was recently admitted to [facility] for pneumonia and UTI and was on the ventilator for 2 days. She was discharged home on Levaquin and Augmentin, sensitivity on the urine culture came back and she was switched to Cipro 3 times daily x 3 days. Subsequently she also had 15 teeth extracted before returning to [facility]. When presenting to the ED today she was hemodynamically stable, low-grade fever of 99.8. She is ab le to answer her birthday, her name, and where she is. When asked if she is confused she states now she is just tired. The emergency room physician contacted hospital medicine for admission and I agreed to accept the patient for further management of her recurrent urinary tract infection. Plan of care as follows: #UTI #CKD #Recurrent UTI ? Patient urinalysis showed turbid urine with trace protein, 3+ blood, 3+ leuk esterase, WBC too numerous to count on admission. Patient complains of dysuria, start Pyridium 200 mg 3 times daily as needed. Patient denies urinary frequency, urinary hesitancy. She states that she has been dealing with his urinary tract infection for 3 to 4 weeks. She is taken multiple rounds of antibiotics without resolution. ?Patient received Invanz 1 g in the ED, will order daily. Renally dosed per pharmacy. ?Urinalysis shows gram-negative bacteria. Urine culture shows E. coli, ESBL: Sensitive to Invanz. Continue antibiotic therapy. ?Continue to monitor for signs of infection, preliminary blood cultures showed no growth after 48 hours. CBC, CMP, magnesium ordered for a.m. ?Patient baseline creatinine 2.3, creatinine today 2.9. LR 500 mL over 2 hours. Recheck kidney function this afternoon. ?Patient was recently hospitalized and intubated for pneumonia at , chest x- ray in the ED personally interpreted by myself shows no acute findings. ?Patient continues to have no signs of bacteremia, no fever, no leukocytosis, white count 4.9. #Urinary incontinence ? Patient takes Myrbetriq 50 mg daily for urinary incontinence, medication unavailable. #Chronic pain ? Patient has fentanyl patch every 3 days. Patient was due to have a fentanyl patch changed this evening, patch removed due to patient's lethargy. Continue to monitor for pain. ?Patient does complain of chronic pain today, will restart fentanyl patch. ? Percocet 5?3 25 twice daily as needed for pain ordered. Monitoring for toxicity. #GERD ? Continue Protonix 20 mg daily. #BKA ?Patient is wheelchair-bound, per [facility] she can normally tra nsfer from wheelchair to bed. PT OT ordered for profound weakness. #Diabetes mellitus ?Patient is insulin-dependent diabetic. Currently takes Lantus 70 units twice daily and is on sliding scale at [facility]. Continue long-acting insulin at 25 units at bedtime. ?ACHS fingersticks, SSI. ?A1c 11.4%, on 02/20/2025. #Hypertension #CAD #CVA ? Continue carvedilol 12.5 twice daily, Plavix 75 mg daily, atorvastatin 40 mg daily. Full code Diabetic diet PT OT evaluation VTE?IPC's
[2025-03-15] MEDS: FENTANYL 12 MCG 1 EACH TD (13:15)
[2025-03-15 14:13] LABS: POC Glucose,Bedside 244 (70-110)
[2025-03-15 14:22] LABS: Chloride 92 mmol/L (98-107); Potassium 4.4 mmoL/L (3.5-5.1); Sodium 125 mmol/L (136-145)
[2025-03-15 14:25] LABS: Blood Urea Nitrogen 54 mg/dl (7-17); Creatinine Clearance Estimated 36 mL/min (50-200); Creatinine,Serum 2.30 mg/dl (0.52-1.04); Estimated Glomerular Filt Rate 21 ml/min (>60); GFR (African American) 26 ML/MIN (>60)
[2025-03-15 14:26] LABS: Anion Gap 10.4 mEq/L (5-15); Calcium 8.1 mg/dl (8.4-10.2); Carbon Dioxide 27 mmol/L (22.0-30.0); Glucose 213 mg/dl (74-100)
[2025-03-15] MEDS: ONDANSETRON 4MG/2ML VIAL 4 MG IV (15:24)
[2025-03-15 16:16] LABS: POC Glucose,Bedside 169 (70-110)
--- NOTE | 2025-03-15 18:42 | PC.NURSE ---
Pt is alert and oriented x4. She is currently on 1L NC with o2 sats measuring >94%. She has complained of painful urination multiple times this shift. Fentanyl patch placed on left deltoid, pt reporting relief at this time. Zofran administered for nausea. Glucose was 244 and 169 at checks, ssi administered per mar. She is currently resting in bed with her eyes closed. Bed is locked and in the lowest position, call light is within reach.
[2025-03-15] MEDS: PANTOPRAZOLE 40MG TABLET 40 MG PO (20:54)
[2025-03-15] MEDS: ATORVASTATIN 40MG TABLET 40 MG PO (20:54)
[2025-03-15] MEDS: INSULIN GLARGINE 100 UNITS/ML 3ML FLEXPEN 25 UNIT SUBCUT (21:00)
[2025-03-15 21:10] LABS: POC Glucose,Bedside 230 (70-110)
[2025-03-15] MEDS: GUAIFENESIN/DEXTROMETHORPHAN 200MG/20MG 10ML UDC 5 ML PO (21:34)
[2025-03-15] MEDS: IPRATROPIUM/ALBUTEROL 3 ML NEB IH (21:43)
[2025-03-16] MEDS: ACETAMINOPHEN 325MG TAB 650 MG PO ×2 (00:46→13:20)
[2025-03-16] MEDS: ONDANSETRON 4MG/2ML VIAL 4 MG IV (01:02)
[2025-03-16] MEDS: SODIUM CHLORIDE 0.9% 10ML FLUSH SYRINGE 10 ML IV (01:05)
[2025-03-16 04:00] VITALS: BP 114/65; PULSE 68; RESP 16; TEMP 36.4; O2SAT 95; BMI 38.1
--- NOTE | 2025-03-16 05:22 | PC.NURSE ---
Pt. is alert and orientated x 4. Pt. is on oxygen 1 liters per N/C. Pt, was admitted for UTI. Pt. c/o generalized chronic pain, also c/o headache and nausea. Pt. was medicated per MAR for pain and nausea. Pt. is getting IV antiviotics, Pt. has purewick with good urine output. Urine deepthi in color. Pt. c/o urinary symptoms and burning with urine sometimes. Pt is incontinent of urine and stool. Pt. needs assist to turn in bed. Pt. has left leg AKA. SCUD to right leg. Pt. has not slept well this shift . Pt. anxious on and off this shift. Personal items and call acuna in reach. Bed in low and locked position. safety measures in place.
[2025-03-16 06:20] LABS: POC Glucose,Bedside 204 (70-110)
[2025-03-16] MEDS: humaLOG 100 UNITS/ML 10ML VIAL (SSI) SUBCUT ×3 (06:27→16:32)
[2025-03-16 07:27] LABS: Hematocrit 27.0 % (37.0-47.0); Hemoglobin 8.4 g/dL (12.2-16.2); Immature Granulocytes % 0.5 %; Mean Corpuscular HGB Conc 31.1 g/dL (31.8-35.4); Mean Corpuscular Hemoglobin 25.7 pg (27.0-31.2); Mean Corpuscular Volume 82.6 fl (81-99); Nucleated Red Blood Cells % 0 %; Platelet Count 345 K/mm3 (142-424); Red Blood Count 3.27 M/mm3 (4.20-5.40); Red Cell Distribution Width-SD 46.6 fL; White Blood Count 3.8 K/mm3 (4.8-10.8)
[2025-03-16 07:45] LABS: Alanine Aminotransferase 26 U/L (12-78); Albumin Level 2.9 g/dl (3.5-5.0); Albumin/Globulin Ratio 0.8 (1.1-1.8); Alkaline Phosphatase 112 U/L (38-126); Anion Gap 12.2 mEq/L (5-15); Aspartate Amino Transferase 26 U/L (14-36); Bilirubin,Total 0.2 mg/dl (0.2-1.3); Blood Urea Nitrogen 46 mg/dl (7-17); Calcium 8.8 mg/dl (8.4-10.2); Carbon Dioxide 27 mmol/L (22.0-30.0); Chloride 94 mmol/L (98-107); Creatinine Clearance Estimated 35 mL/min (50-200); Creatinine,Serum 2.40 mg/dl (0.52-1.04); Estimated Glomerular Filt Rate 20 ml/min (>60); GFR (African American) 25 ML/MIN (>60); Globulin 3.7 g/dL (1.3-3.2); Glucose 187 mg/dl (74-100); Potassium 4.2 mmoL/L (3.5-5.1); Sodium 129 mmol/L (136-145); Total Protein,Serum 6.6 g/dl (6.3-8.2)
[2025-03-16 08:00] VITALS: BP 128/64; PULSE 68; RESP 16; TEMP 36.7; O2SAT 97
[2025-03-16] MEDS: INSULIN GLARGINE 100 UNITS/ML 3ML FLEXPEN 35 UNIT SUBCUT (08:12)
[2025-03-16] MEDS: CARVEDILOL 12.5MG TABLET 12.5 MG PO (08:13)
[2025-03-16] MEDS: CLOPIDOGREL 75MG TAB 75 MG PO (08:13)
[2025-03-16] MEDS: PHENAZOPYRIDINE 200MG TABLET 200 MG PO ×2 (08:13→13:21)
[2025-03-16] MEDS: BACLOFEN 10MG TABLET 10 MG PO ×2 (08:13→13:20)
[2025-03-16] MEDS: OXYCODONE 5MG W/APAP 325MG TABLET 1 EACH PO (08:13)
[2025-03-16] MEDS: PREGABALIN 50MG CAPSULE 50 MG PO (08:13)
[2025-03-16 11:05] LABS: POC Glucose,Bedside 202 (70-110)
[2025-03-16] MEDS: ERTAPENEM SODIUM 1 GM in 0.9 % SODIUM CHLORIDE 50 ML IV (11:13)
--- NOTE | 2025-03-16 13:24 | EXP.DC.SUM ---
General Admission date:: 03/13/25 Discharge date: 03/16/25 HPI HPI HPI: Ms. Tovar is a 64-year-old female who resides at [facility]. She presented to the emergency room via EMS today with complaints of lethargy and continued urinary tract infection. Per [facility] staff patient is normally alert and oriented, but today was found to be more lethargic and somnolent. Patient able to tell her name, birthday, where she is. But states she is very tired and unable to answer any more questions. She was admitted to the hospital for recurrent urinary tract infection, with failed outpatient therapy. Previous urine culture from 02/22/2025 shows Enterobacter cloacae. Culture and sensitivity show sensitivity to Invanz. Hospital Course Hospital Course Hospital Course: Ms. Tovar is a 64-year-old female with a primary medical history of chronic kidney disease stage III, recurrent urinary tract infection, CHF, COPD, diabetes mellitus type 2, insulin-dependent, left BKA, GERD, chronic pain, mood disorder, right mastectomy, urinary incontinence, CVA, CAD, heart cath with stent placement, hypertension, hyperlipidemia. She presented to the emergency department today from [facility] with lethargy and recurrent urinary tract infection. She was recently admitted to [facility] for pneumonia and UTI and was on the ventilator for 2 days. She was discharged home on Levaquin and Augmentin, sensitivity on the urine culture came back and she was switched to Cipro 3 times daily x 3 days. Subsequently she also had 15 teeth extracted before returning to [facility]. When presenting to the ED today she was hemodynamically stable, low-grade fever of 99.8. She is able to answer her birthday, her name, and where she is. When asked if she is confused she states now she is just tired. The emergency room physician contacted hospital medicine for admission and I agreed to accept the patient for further management of her recurrent urinary tract infection. Plan of care as follows: #UTI, urine culture grew ESBL, patient started feeling better on Invanz, patientto be discharged on 5 days on 1g IM invanz and follow up with PCP time spent. 35 mins Exam Data for Last 24 hours Vital signs and Labs for Last 24 Hours: Temp Pulse Resp BP Pulse Ox O2 Del Method O2 Flow Rate 98.1 F 68 16 128/64 97 Nasal Cannula 1 03/16/25 08:00 03/16/25 08:00 03/16/25 08:00 03/16/25 08:00 03/16/25 08:00 03/16/25 11:00 03/16/25 11:00 Laboratory Results - last 24 hr 03/15/25 11:02: POC Glucose 244 H 03/15/25 14:01: Sodium 125 L, Potassium 4.4, Chloride 92 L, Carbon Dioxide 27, Anion Gap 10.4, BUN 54 H, Creatinine 2.30 H D, Estimated Creat Clear 36, Estimated GFR 21 L, Est GFR ( Amer) 26 L D, Glucose 213 H D, Calcium 8.1 L 03/15/25 16:05: POC Glucose 169 H 03/15/25 20:43: POC Glucose 230 H 03/16/25 06:12: POC Glucose 204 H 03/16/25 06:13: WBC 3.8 L, RBC 3.27 L, Hgb 8.4 L, Hct 27.0 L, MCV 82.6, MCH 25.7 L, MCHC 31.1 L, RDW 15.3, Plt Count 345, MPV 10.2, Neut % (Auto) 54.8, Lymph % (Auto) 19.3, [place] % (Auto) 18.5 H, Eos % (Auto) 6.6, Baso % (Auto) 0.3, Neut # (Auto) 2.1, Lymph # (Auto) 0.7, [place] # (Auto) 0.7, Eos # (Auto) 0.3, Baso # (Auto) 0.0, Sodium 129 L, Potassium 4.2, Chloride 94 L, Carbon Dioxide 27, Anion Gap 12.2, BUN 46 H, Creatinine 2.40 H, Estimated Creat Clear 35, Estimated GFR 20 L, Est GFR ( Amer) 25 L, Glucose 187 H, Calcium 8.8, Total Bilirubin 0.2, AST 26, ALT 26, Alkaline Phosphatase 112, Total Protein 6.6, Albumin 2.9 L, Globulin 3.7 H, Albumin/Globulin Ratio 0.8 L 03/16/25 10:58: POC Glucose 202 H I & O for Last 24 hours: Intake & Output 03/13/25 03/14/25 03/15/25 03/16/25 23:59 23:59 23:59 23:59 Intake Total 1040 / 1040 960 / 1400 2110 / 2335 585 / 585 Output Total 250 / 250 575 / 1175 600 / 600 Balance 1040 / 1040 710 / 1150 1535 / 1160 -15 / -15 Weight 86.772 kg 92.125 kg 92.669 kg 94.007 kg Microbiology Reports for the Last 24 Hours: Microbiology 03/13/25 12:08 Blood Blood Culture - Preliminary NO GROWTH AFTER 48 HOURS 03/13/25 11:15 Blood Blood Culture - Preliminary NO GROWTH AFTER 48 HOURS 03/13/25 11:25 Urine,Catheterized Urine Culture - Final Escherichia coli Constitutional Constitutional: no acute distress *Routine HEENT Exam Head: Present normocephalic Eye: Present EOMI and PERRL ENT: Present mucous membranes moist *Routine Neck Exam Neck: Present supple; Absent lymphadenopathy *Routine Respiratory Exam Respiratory: Present CTA bilaterally *Routine Cardiovascular Exam Cardiovascular: Present RRR *Routine Abdominal Exam Abdominal: Present soft and normoactive bowel sounds; Absent tenderness *Routine Extremities Exam Extremities: Absent cyanosis, clubbing or edema *Routine Skin Exam Skin: Present warm; Absent rash *Routine Neurological Exam Neurological: Present alert and oriented X3 Results Data Completed and Pending Labs on day of discharge: Labs from last 24 hours 03/16/25 03/16/25 03/16/25 10:58 06:13 06:12 WBC 3.8 L RBC 3.27 L Hgb 8.4 L Hct 27.0 L MCV 82.6 MCH 25.7 L MCHC 31.1 L RDW 15.3 Plt Count 345 MPV 10.2 Neut % (Auto) 54.8 Lymph % (Auto) 19.3 Menard % (Auto) 18.5 H Eos % (Auto) 6.6 Baso % (Auto) 0.3 Neut # (Auto) 2.1 Lymph # (Auto) 0.7 Menard # (Auto) 0.7 Eos # (Auto) 0.3 Baso # (Auto) 0.0 Sodium 129 L Potassium 4.2 Chloride 94 L Carbon Dioxide 27 Anion Gap 12.2 BUN 46 H Creatinine 2.40 H Estimated Creat Clear 35 Estimated GFR 20 L Est GFR ( Amer) 25 L Glucose 187 H POC Glucose 202 H 204 H Calcium 8.8 Total Bilirubin 0.2 AST 26 ALT 26 Alkaline Phosphatase 112 Total Protein 6.6 Albumin 2.9 L Globulin 3.7 H Albumin/Globulin Ratio 0.8 L 03/15/25 03/15/25 03/15/25 20:43 16:05 14:01 WBC RBC Hgb Hct MCV MCH MCHC RDW Plt Count MPV Neut % (Auto) Lymph % (Auto) Menard % (Auto) Eos % (Auto) Baso % (Auto) Neut # (Auto) Lymph # (Auto) Menard # (Auto) Eos # (Auto) Baso # (Auto) Sodium 125 L Potassium 4.4 Chloride 92 L Carbon Dioxide 27 Anion Gap 10.4 BUN 54 H Creatinine 2.30 H D Estimated Creat Clear 36 Estimated GFR 21 L Est GFR ( Amer) 26 L D Glucose 213 H D POC Glucose 230 H 169 H Calcium 8.1 L Total Bilirubin AST ALT Alkaline Phosphatase Total Protein Albumin Globulin Albumin/Globulin Ratio 03/15/25 11:02 WBC RBC Hgb Hct MCV MCH MCHC RDW Plt Count MPV Neut % (Auto) Lymph % (Auto) Menard % (Auto) Eos % (Auto) Baso % (Auto) Neut # (Auto) Lymph # (Auto) Menard # (Auto) Eos # (Auto) Baso # (Auto) Sodium Potassium Chloride Carbon Dioxide Anion Gap BUN Creatinine Estimated Creat Clear Estimated GFR Est GFR ( Amer) Glucose POC Glucose 244 H Calcium Total Bilirubin AST ALT Alkaline Phosphatase Total Protein Albumin Globulin Albumin/Globulin Ratio Preliminary micro results at discharge 03/13/25 12:08 Blood Culture - Preliminary Blood NO GROWTH AFTER 48 HOURS 03/13/25 11:15 Blood Culture - Preliminary Blood NO GROWTH AFTER 48 HOURS DS: Diagnosis Discharge Diagnosis (1) UTI (urinary tract infection): Status: Acute Code(s): N39.0 - Urinary tract infection, site not specified (2) Chronic kidney disease (CKD): Status: Acute Code(s): N18.9 - Chronic kidney disease, unspecified Problem details: stage 3 (3) Recurrent UTI: Status: Acute Code(s): N39.0 - Urinary tract infection, site not specified (4) Incontinent of urine: Status: Acute Code(s): R32 - Unspecified urinary incontinence (5) GERD (gastroesophageal reflux disease): Status: Acute Code(s): K21.9 - Gastro-esophageal reflux disease without esophagitis (6) Below knee amputation: Status: Acute Code(s): S88.119A - Complete traumatic amputation at level between knee and ankle, unspecified lower leg, initial encounter Problem details: Left (7) Diabetes mellitus: Status: Acute Code(s): E11.9 - Type 2 diabetes mellitus without complications Qualifiers: Diabetes mellitus type: other specified (including [place]) Diabetes mellitus roasterman insulin use: unspecified roasterman insulin use status Diabetes mellitus complication status: with other specified complication Qualified Code(s): E13.69 - Other specified diabetes mellitus with other specified complication (8) Hypertension: Status: Acute Code(s): I10 - Essential (primary) hypertension Qualifiers: Hypertension type: primary hypertension Qualified Code(s): I10 - Essential (primary) hypertension (9) CAD (coronary artery disease): Status: Acute Code(s): I25.10 - Atherosclerotic heart disease of [place] coronary artery without angina pectoris Qualifiers: Coronary Disease-Associated Artery/Lesion type: [place] artery [place] vs. transplanted heart: [place] heart Associated angina: without angina Qualified Code(s): I25.10 - Atherosclerotic heart disease of [place] coronary artery without angina pectoris Problem details: PCI/CLIFF 2018. Last cardiac cath, Aug 2022, with patent stents>medical management. 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 Meds Home Medications and Allergies Home Medications ?Medication ?Instructions ?Recorded ?Confirmed ?Type acetaminophen 500 mg tablet 500 mg PO Q6HP PRN Mild Pain 02/28/18 03/13/25 History (Scale Score 1-4) anastrozole 1 mg tablet 1 mg PO DAILY breast cancer 02/28/18 03/13/25 History atorvastatin 40 mg tablet 40 mg PO DAILY 02/28/18 03/13/25 History carvedilol 12.5 mg tablet 12.5 mg PO BID 02/28/18 03/13/25 History loperamide 2 mg capsule 2 mg PO Q4HP PRN Diarrhea 07/11/18 03/13/25 History baclofen 10 mg tablet 10 mg PO TID 04/11/19 03/13/25 History pantoprazole 20 mg tablet,delayed 20 mg PO DAILY 04/11/19 03/13/25 History release (Protonix) clopidogrel 75 mg tablet 75 mg PO DAILY 02/04/20 03/13/25 History multivitamin with minerals 1 each PO DAILY Supplement 05/06/21 03/13/25 History ondansetron 4 mg disintegrating 4 mg PO Q6HP PRN Nausea And 07/28/22 03/13/25 History tablet Vomiting trazodone 150 mg tablet 300 mg PO HS 07/28/22 03/13/25 History azelastine 137 mcg (0.1 %) nasal 2 spray intranasal BID allergy 09/13/23 03/13/25 Rx spray symptoms #30 mL cholecalciferol (vitamin D3) 25 25 mcg PO BID 10/04/23 03/13/25 History mcg (1,000 unit) tablet (Vitamin D3) cyanocobalamin (vitamin B-12) 1,000 mcg PO DAILY 10/04/23 03/13/25 History 1,000 mcg tablet (Vitamin B-12) fluticasone furoate 100 1 inh inhalation DAILY 10/04/23 03/13/25 History mcg-vilanterol 25 mcg/dose inhalation powder (Breo Ellipta) fluticasone propionate 50 1 spray intranasal BID 10/04/23 03/13/25 History mcg/actuation nasal spray,suspension magnesium oxide 400 mg PO BID 10/04/23 03/13/25 History ascorbic acid (vitamin C) 500 mg 500 mg PO BID 10/16/23 03/13/25 History tablet (Vitamin C) calcitriol 0.25 mcg capsule 0.25 mcg PO DAILY 03/19/24 03/13/25 History dextromethorphan-guaifenesin 10 10 ml PO Q4H PRN Cough 07/24/24 03/13/25 History mg-100 mg/5 mL oral liquid (Guaiasorb DM) ferrous sulfate 325 mg (65 mg 325 mg PO BID 10/02/24 03/13/25 History iron) tablet (iron) oxycodone-acetaminophen 5 mg-325 1 tab PO BID PRN Pain (Scale Score 01/16/25 03/13/25 Rx mg tablet (Percocet) 7-10) #60 tabs fentanyl 12 mcg/hr transdermal 1 patch transdermal Q72H #10 02/07/25 03/13/25 Rx patch patches d-mannose 500 mg capsule (AZO 2,000 mg PO DAILY 02/19/25 03/13/25 History D-Mannose) insulin aspart U-100 100 unit/mL 1 sliding scale dose SQ 02/19/25 03/13/25 History (3 mL) subcutaneous pen USEASDIRECTD insulin glargine 100 unit/mL (3 70 unit SQ BID 02/19/25 03/13/25 History mL) subcutaneous pen (Basaglar KwikPen U-100 Insulin) mirabegron 50 mg tablet,extended 50 mg PO DAILY 02/19/25 03/13/25 History release 24 hr (Myrbetriq) trospium 20 mg tablet 20 mg PO BID 02/19/25 03/13/25 History pregabalin 50 mg capsule 50 mg PO DAILY #30 caps 03/02/25 03/13/25 Rx fluvoxamine 25 mg tablet 25 mg PO HS 03/13/25 03/13/25 History ertapenem 1 gram solution for 1 g IM DAILY 5 days #5 ea 03/16/25 Rx injection New Prescriptions to Start Prescriptions: Rianna Ravi Allergies Allergy/AdvReac Type Severity Reaction Status Date / Time adhesive tape Allergy Unknown Unknown Verified 03/13/25 15:44 allergy reaction bupropion (From WELLBUTRIN) Allergy Unknown Unknown Verified 03/05/25 09:27 allergy reaction hydrocodone (From LORTAB) Allergy Unknown Unknown Verified 03/05/25 09:27 allergy reaction Sulfa (Sulfonamide Allergy Unknown Unknown Verified 03/05/25 09:27 Antibiotics) (SULFA allergy (SULFONAMIDE ANTIBIOTICS)) reaction tramadol (From ULTRAM) Allergy Unknown Unknown Verified 03/05/25 09:27 allergy reaction Discharge Plan Disposition Patient Disposition: er SNF Condition: Good Discharge Order Discharge Orders: Discharge Order (Routine); Ordered 03/16/25 Ordered By: Rianna Swan Follow up Plan Follow up with: Vignesh Pickens MD [Primary Care Provider, Family Practice] - Enter time for follow up Prescriptions/Medication Reconciliation: New ertapenem 1 gram recon soln 1 g IM DAILY 5 Days Qty: 5 0RF Continued acetaminophen 500 mg tablet 500 mg PO Q6HP PRN (Reason: Mild Pain (Scale Score 1-4)) anastrozole 1 mg tablet 1 mg PO DAILY atorvastatin 40 mg tablet 40 mg PO DAILY carvedilol 12.5 mg tablet 12.5 mg PO BID calcitriol 0.25 mcg capsule 0.25 mcg PO DAILY dextromethorphan-guaifenesin [Guaiasorb DM] 10-100 mg/5 mL liquid 10 ml PO Q4H PRN (Reason: Cough) AZO D-Mannose 500 mg capsule 2,000 mg PO DAILY insulin aspart U-100 100 unit/mL (3 mL) insulin pen 1 sliding scale dose SQ USEASDIRECTD trospium 20 mg tablet 20 mg PO BID Rx Instructions: administer on an empty stomach mirabegron [Myrbetriq] 50 mg tablet extended release 24 hr 50 mg PO DAILY loperamide 2 mg capsule 2 mg PO Q4HP PRN (Reason: Diarrhea) pantoprazole [Protonix] 20 mg tablet,delayed release (DR/EC) 20 mg PO DAILY baclofen 10 mg tablet 10 mg PO TID azelastine 137 mcg (0.1 %) aerosol,spray 2 spray intranasal BID Qty: 30 3RF Rx Instructions: administer into each nostril ascorbic acid (vitamin C) [Vitamin C] 500 mg tablet 500 mg PO BID oxycodone-acetaminophen [Percocet] 5-325 mg tablet 1 tab PO BID PRN (Reason: Pain (Scale Score 7-10)) Qty: 60 0RF fentanyl 12 mcg/hr patch 72 hour 1 patch transdermal Q72H Qty: 10 0RF insulin glargine [Basaglar KwikPen U-100 Insulin] 100 unit/mL (3 mL) insulin pen 70 unit SQ BID pregabalin 50 mg capsule 50 mg PO DAILY Qty: 30 5RF clopidogrel 75 MG tablet 75 mg PO DAILY multivitamin with minerals 1 EACH tablet 1 each PO DAILY ondansetron 4 mg Tablet,Disintegrating 4 mg PO Q6HP PRN (Reason: Nausea And Vomiting) trazodone 150 mg tablet 300 mg PO HS ferrous sulfate [iron] 325 mg (65 mg iron) tablet 325 mg PO BID cyanocobalamin (vitamin B-12) [Vitamin B-12] 1,000 mcg Tablet 1,000 mcg PO DAILY fluticasone propionate 50 mcg/actuation Dexter,Suspension 1 spray INTRANASAL BID Rx Instructions: administer into each nostril cholecalciferol (vitamin D3) [Vitamin D3] 25 mcg (1,000 unit) Tablet 25 mcg PO BID fluticasone furoate-vilanterol [Breo Ellipta] 100-25 mcg/dose Blister With Device 1 inh INHALATION DAILY magnesium oxide 400 mg magnesium Tablet 400 mg PO BID fluvoxamine 25 mg tablet 25 mg PO HS Problem Reconciliation Problems Reviewed?: Yes Patient Discharge Instructions ACTIVITY: Continue current activity DIET: continue same diet Patient Instructions: DI for Urinary Tract Infection (UTI), DI for Extended Spectrum Beta-Lactamase Infection, Stop Light Infection Print Language: Urdu Providers Primary Care Provider: Vignesh Pickens Admjesse Provider: Rianna Swan Attending Provider: Rianna Swan
--- NOTE | 2025-03-16 14:07 | PC.NURSE ---
Attempted to call report, nurse stated was busy and would call back when she was able to
--- NOTE | 2025-03-16 14:25 | PC.NURSE ---
RN called back, report given and EMS called for transport
[2025-03-16 16:45] LABS: POC Glucose,Bedside 226 (70-110)
== END 2025-03-16 16:50 ==
LOC: ER 11:52 → 2ND 14:32
PROVIDERS: Nurse Practitioner Family; Admitting Provider Internal Medicine; Emergency Provider Emergency Medicine; PCP Family Medicine; Visit Provider Internal Medicine
DX: N39.0 Urinary tract infection, site not specified (principal); I13.0 Hypertensive heart and chronic kidney disease with heart failure and stage 1 through stage 4 chronic kidney disease, or unspecified chronic kidney disease; E11.22 Type 2 diabetes mellitus with diabetic chronic kidney disease; E11.43 Type 2 diabetes mellitus with diabetic autonomic (poly)neuropathy; K21.9 Gastro-esophageal reflux disease without esophagitis; F33.9 Major depressive disorder, recurrent, unspecified; J96.11 Chronic respiratory failure with hypoxia; S88.112A Complete traumatic amputation at level between knee and ankle, left lower leg, initial encounter; J44.9 Chronic obstructive pulmonary disease, unspecified; I50.40 Unspecified combined systolic (congestive) and diastolic (congestive) heart failure; N18.30 Chronic kidney disease, stage 3 unspecified; I69.352 Hemiplegia and hemiparesis following cerebral infarction affecting left dominant side; F41.9 Anxiety disorder, unspecified; I25.10 Atherosclerotic heart disease of native coronary artery without angina pectoris; E78.5 Hyperlipidemia, unspecified; E66.01 Morbid (severe) obesity due to excess calories; G89.29 Other chronic pain; M16.11 Unilateral primary osteoarthritis, right hip; Z79.4 Long term (current) use of insulin; Z86.718 Personal history of other venous thrombosis and embolism; Z68.31 Body mass index [BMI] 31.0-31.9, adult; Z85.3 Personal history of malignant neoplasm of breast; Z91.048 Other nonmedicinal substance allergy status; Z88.8 Allergy status to other drugs, medicaments and biological substances; Z88.5 Allergy status to narcotic agent; Z88.2 Allergy status to sulfonamides; Z87.891 Personal history of nicotine dependence; Z79.899 Other long term (current) drug therapy; Z79.02 Long term (current) use of antithrombotics/antiplatelets; Z79.51 Long term (current) use of inhaled steroids
CPT/HCPCS: 36415; 70450; 71045; 80048; 80053; 80307; 81001; 82140; 82803; 82962; 83735; 83880; 84443; 84484; 85025; 87040; 87086; 87088; 87186; 93306; 94640; 94761; 96361; 96374; 96375; 96376; 97163; 97166; 97530; 99285; G0378; J1335; J1938; J2405; J7120

== ENCOUNTER 2025-03-27 11:25 | Inpatient (IN) | payer MEDICARE, MEDICAID, SELFPAY ==
--- OUTSIDE RECORDS SUMMARY | 2017-02-21 10:50 | XMS_ITS | Continuity of Care Document ---
Author Organization [address] [place] [address] Address [address] [facility] [address] [place] [address] Phone Care Team Providers Care Home Health Care Coordinator Name Role Phone SkAndrei ivey DPM Unavailable Unavailable Procedures Procedure Date DEBRIDEMENT OF NAIL(S) BY ANY METHOD(S); OR MORE DEBRIDEMENT OF NAIL(S) BY ANY METHOD(S); OR MORE DEBRIDEMENT OF NAIL(S) BY ANY METHOD(S); 6 OR MORE Advance Directives Directive Yes / No Effective Date File Name No Information Encounters Encounter Description Practice Location Reason(s) For Visit Diagnoses Date Provider Providers Copied on Encounter [facility], [address] [place] [address], [id number], tel:[phone] [facility] Tinea unguiumType 1 diabetes mellitus with hyperglycemia Pain in right toe(s)Pain in left toe(s) 7 Gomez Forbes. [address] [facility], [address] [place] [address], [id number], [place]. tel:[phone] [facility], [address] [facility] 300, [place], [place], [id number], tel:[phone] [facility] Nail Pain (chief complaint) Tinea unguiumPain in right toe(s)Pain in left toe(s) 7 Gomez Forbes. [address] [facility], [facility] 300, [place], [place], [id number], [place]. tel:[phone] [place] [address], [address] [facility], [place], [place], [id number], tel:[phone] [facility] Nail Pain (chief complaint) Tinea unguiumPain in right toe(s)Pain in left toe(s)Type 1 diabetes mellitus with hyperglycemia 7 Gomez [place]i. [address] [facility], [address], [place], [place], [id number], . tel:[phone] Family History Family Member Type Diagnosis Age At Onset No Information Payers Payer name Insurance type Covered constitution party ID Authoriza tion(s) Medicare [facility] [id number] Medicaid [facility] [id number] Social History Type Description Quantity Date Captured [...]
--- OUTSIDE RECORDS SUMMARY | 2025-01-31 08:03 | XMS_ITS | Encounter Summary ---
Author Organization [facility] Address [address] [place] [address] Care Team Providers Care Magazine Worker Name Role Phone Cayla Erazo APRN, DNP Unavailable [phone] Vignesh Pickens MD Primary Care Provider [phone] Reason for Visit * Auth/Cert (Routine) Specialty Diagnoses / Procedures Referred By Contac t Referred To Contact Diagnoses Gross hematuria Gross hematuria Procedures SD CYSTO/URETERO/PYELOSC,BX &/OR FULG LESN URETEROSCOPY, WITH BIOPSY POSSIBLE STENT PLACEMENTS Ceci Mitchell MD [address] [address] Phone: tel: fax: [facility] [address] [place] [address] Phone: tel: Referral ID Status Reason Start Date Expiration Date Visits Re quested Visits Authorized [id number] 1 1 Encounter Details Date Type Department Care Team (Latest Contact Info) Description 01/31/2025 8:03 AM EDT - 01/31/2025 1:39 PM EDT Hospital Encounter [facility] [address] [place] [address] Ceci Mitchell MD [address] [address] Urinary retention (Primary Dx); Gross [...] any time in the past 12 m [facility], were you homeless or living in a penitentiary (including now)? No 08/20/2024 CAGE ASSESSMENT Answer [...] drink first t rodríguez in the morning (EYE-PRINTING PRESS OPERATOR) to steady your nerves or to get rid of a hangover? 0 08/15/2024 CAGE Questionnaire Score 0 024 Utilities Answer Date Recorded In the past 12 months has e [employer], gas, oil, or water company threatened to [...] confirm your location ahead of your appointment) [facility] Urology Department Clinic at [facility] [address] [facility] [address], [facility], [address] [place] [address] Clinic After Hours [facility] Office Building Urology Clinic [facility] [address] [place] [address] Clinic After Hours documented in this encounter [...] a day. 60 tablet 11 09/26/2024 6 fluconazole (Diflucan) 100 MG tabletIndication s:Urinary retention Take 1 tablet by mouth daily for 14 days. 14 tablet 01/31/2025 5 ARIPiprazole (Abilify) 5 MG tablet Take 1 [...] nebulization every 6 hours as needed. 5 mirabegron ER (Myrbetriq) 25 MG tablet Take 2 tablets by mouth every morning. 60 tablet 11 01/31/2025 5 oxyCODONE-acetam inophen (Percocet) 5-325 MG tablet [...] 12/20/2024 5 documented as of this encounter Miscellaneous [...] POSTOPERATIVE DIAGNOSIS: Same SURGEON: Ceci Mitchell MD BALLOON DESIGN PRINTER SURGEON(S): Gerry Cullen DO, Doug Lundy MD [...] the start of the case. A 19 Andorran rigid cystoscope was introduced into the patient's [...] of the renal pelvis. We advanced a [place] catheter over our sensor wire and performed [...] leave stents bilaterally with strings. Used 7 Andorran by 24 cm double-J stents on strings. These were placed without difficulty and intraoperative fluoroscopy was used to confirm appropriate positioning with the proximal curls in the renal pelvises bilaterally in the distal curls in the bladder. An 18 Andorran García catheter was placed at the conclusion [...] Cullen DO PGY-3, Department of Urology Pager: [phone] Cosigned by Ceci Mitchell MD at 01/31/2025 [...] (cerebral infarction) COPD (chronic obstructive pulmonary disease) ([facility]) Depression Fibromyalgia History of falling History of [...] BREAST SURGERY N/A Breast Surgery Reconstruction from [employer] BREAST SURGERY N/A Breast Surgery from [facility] CHOLECYSTECTOMY N/A Cholecystotomy from [employer] KIDNEY SURGERY N/A Kidney Surgery from [employer] KNEE SURGERY N/A Knee Surgery from [employer] MASTECTOMY N/A Breast Surgery Mastectomy from [employer] SHOULDER SURGERY Right Shoulder Surgery Right from [employer] [3] No medications prior to admission. [4] Allergies Allergen Reactions Sulfa Drugs Anaphylaxis Ultram [Tramadol] Swelling lips swell Hydrocodone Unknown - Patient states they do not know rxn details [facility] is unaware of what reaction. Pedi-Pre Tape [place] [Wound Dressing Adhesive] Rash Wellbutrin [Bupropion] Rash [...] Care Team (Late st Contact Info) Description 03/27/2025 11:50 AM EDT Clinical Support Medical Office Building Lab [address] [place] [address] 03/27/2025 1:00 PM EDT Office Visit Medical Office Building Urology [address] [facility], [address] [place] [address] Cayla Erazo, FREELANCE COURT REPORTER, DNP [address] [place] [address] 05/16/2025 8:00 AM EDT Office Visit [facility] [place] [address], [address] [place] [address] Karly Gracia MD [address] [place] [address] 06/07/2025 1:00 PM EDT Office Visit [facility] [address] [place] [address] Tom Iraheta MD [address] [place] [address] documented as of this encounter Procedures Procedure Name Priority Date/Time Associated Diagnosis Comments POCT GLUCOSE METER UNSOLICITED RESULTS Routine 01/31/2025 11:39 AM EDT FL LESS THAN 1 HOUR (NON-REPORTABLE) Routine 01/31/2025 11:14 AM EDT FUNGAL CULTURE, ROUTINE Routine 01/31/2025 10:23 AM EDT Gross hematuria URINE CULTURE Routine 01/31/2025 10:22 AM EDT Gross hematuria SD CYSTO/URETERO/PYELOS C,BX &/OR FULG LESN 01/31/2025 9:32 AM EDT Gross hematuria POCT GLUCOSE METER UNSOLICITED RESULTS Routine 01/31/2025 8:47 AM EDT documented in this encounter Results * (ABNORMAL) POCT glucose meter (01/31/2025 11:39 AM EDT) POCT Glucose 135(H) 74 - 99 mg/dL 01/31/2025 11:41 AM EDT [facility] Comment:Accuracy of a glucos e result [...] Comment 01/31/2025 11:41 AM EDT HEALTHCARE LAB Gas Line Installer ID Abbey Medina 01/31/2025 11:41 AM EDT HEALTHCARE LAB Device ID [id number] 01/31/2025 11:41 AM EDT HEALTHCARE LAB Specimen Type POC Capillary 01/31/2025 11:41 AM EDT HEALTHCARE LAB Blood Capillary blood specimen / Unknown 01/31/2025 11:39 AM EDT 01/31/2025 11:41 AM EDT Ceci Mitchell MD LAB POINT OF CARE TE ST DOCKED DEVICE UNSOLICITED RESULTS Final Result Performing Organization Address City/[facility]/ZIP Co de Phone Number [facility] [address] [place] [address] * [place] Less than 1 Hour Intraoperative (01/31/2025 11:14 AM EDT) Narrative IMAGING - 01/31/2025 11:15 AM EDT Images were obtained for surgical purposes. See Ceci Mitchell's surgical note in the patient's chart for the findings. us Ceic Mitchell MD IMG FLUOROSCOPY PROCEDURES F inal Result Performing Organization Address City/[facility]/ZIP Co de Phone Number IMAGING * (ABNORMAL) Fungal Culture, Routine (01/31/2025 10:23 AM EDT) Culture Confluent Growth Maira glabrata(A) 02/08/2025 11:50 AM EDT [facility] Urine Urinary bladder structure / Unknown 01/31/2025 10:23 AM EDT 01/31/2025 11:38 AM EDT Comment:Pre-op diagnosis: Gross hematuria us Ceci Mitchell MD LAB MICROBIOLOGY - GENERAL O RDERABLES Final Result Performing Organization Address City/[facility] Hospital/ZIP Co de Phone Number [facility] [address] [place] [address] * Urine Culture (01/31/2025 10:22 AM EDT) Culture No growth at day 1 02/01/2025 8:02 AM EDT [facility] Urine Urinary bladder structure / Unknown 01/31/2025 10:22 AM EDT 01/31/2025 11:38 AM EDT Comment:Pre-op diagnosis: Gross hematuria Ceci Mitchell MD LAB MICROBIOLOGY - GENERAL O RDERABLES Final Result Performing Organization Address City/[facility] Hospital/ZIP Co de Phone Number [facility] [address] [place] [address] * (ABNORMAL) POCT glucose meter (01/31/2025 8:47 [...] for testing. Comment 01/31/2025 8:49 AM EDT HEALTHCARE LAB Gas Line Installer ID Khai Jamison 02/01/20 8:49 AM EDT HEALTHCARE LAB Device ID [id number] 01/31/2025 8:49 AM EDT HEALTHCARE LAB Specimen Type POC Capillary 01/31/2025 8:49 AM EDT [facility] Blood Capillary blood specimen / Unknown 01/31/2025 8:47 AM EDT 01/31/2025 8:49 AM EDT us Ceci Mitchell MD LAB POINT OF CARE TE ST DOCKED DEVICE UNSOLICITED RESULTS Final Result Performing Organization Address City/[facility]/ZIP Co de Phone Number [facility] [address] [place] [address] documented in this encounter Visit Diagnoses Diagnosis [...] injection (CANCELED) As needed, Starting on Hermelinda 6 at 1017, Until Hermelinda 6 at 1125, Routine, Intraprocedure 1017 (Given - Provid er: Ceci Mitchell MD) naloxone (Narcan) injection 0.4 mg 0.4 mg, Intravenous, As needed, Starting on Hermelinda 625 at 1102, Until Hermelinda 625 at 1539, Routine, Recovery (Phase I only), respiratory depression ondansetron (Zofran) injection 4 mg 4 mg, Intravenous, Once as needed, 1 dose, Starting on Hermelinda 25 at 1102, Until Hermelinda 6 at 1539, Routine, Recovery (Phase I only), nausea, vomiting oxyCODONE (Roxicodone) immediate release tablet 10 mg(Linked Group 1) 10 mg, Oral, Once as needed, 2 doses, Starting on Hermelinda 625 at 1102, Until Hermelinda 6 at 1539, Routine, Recovery (Phase I only), pain score of 6-8 out of 10 oxyCODONE (Roxicodone) immediate release tablet 5 mg(Linked Group 1) 5 mg, Oral, Once as needed, 2 doses, Starting on Hermelinda 625 at 1102, Until Hermelinda 625 at 1539, Routine, Recovery (Phase I only), pain score of 3-5 out of 10 Linked Groups Order Group 1: oxyCODONE (Roxicodone) immediate release tablet 5 mgJump to med 5 mg, Oral, Once as needed, 2 doses, Starting on Hermelinda 625 at 1102, Until Hermelinda 6/25 at 1539, Routine, Recovery (Phase I only), pain score of 3-5 out of 10 Or oxyCODONE (Roxicodone) immediate release tablet 10 mgJump to med 10 mg, Oral, Once as needed, 2 doses, Starting on Hermelinda 625 at 1102, Until Hermelinda 6/25 at 1539, [...] documented as of this encounter Care Teams Magazine Worker Relationship Specialty Start Date End Date Vignesh Pickens MD [address] [place] [address] PCP - General 12/31/24 Cayla Erazo APRN, DNP [address] [facility] [address] [place] [address] Nurse Practitioner Urology 12/20/24 documented as of this encounter
--- OUTSIDE RECORDS SUMMARY | 2025-01-31 08:03 | XMS_ITS | Encounter Summary ---
Author Organization [facility] Address [address] [place] [address] Care Team Providers Care Outdoor Power Equipment Mechanic Name Role Phone Cayla Erazo APRN, DNP Unavailable [phone] Vignesh Pickens MD Primary Care Provider [phone] Reason for Visit * Auth/Cert (Routine) Specialty Diagnoses / Procedures Referred By Contac t Referred To Contact Diagnoses Gross hematuria Gross hematuria Procedures DC CYSTO/URETERO/PYELOSC,BX &/OR FULG LESN URETEROSCOPY, WITH BIOPSY POSSIBLE STENT PLACEMENTS Ceci Mitchell MD [address] [address] Phone: tel: fax: [facility] [address] [place] [address] Phone: tel: Referral ID Status Reason Start Date Expiration Date Visits Re quested Visits Authorized [id number] 1 1 Encounter Details Date Type Department Care Team (Latest Contact Info) Description 01/31/2025 8:03 AM EDT - 01/31/2025 1:39 PM EDT Hospital Encounter [facility] [address] [place] [id number] Ceci Mitchell MD [address] [address] Urinary retention (Primary Dx); Gross [...] time in the past 12 m [facility], were you homeless or living in a custodial (including now)? No 08/20/2024 CAGE ASSESSMENT Answer [...] drink first t rodríguez in the morning (EYE-FURS SALESPERSON) to steady your nerves or to get rid of a hangover? 0 08/15/2024 CAGE Questionnaire Score 0 024 Utilities Answer Date Recorded In the past 12 months has e [employer], gas, oil, or water company threatened to [...] confirm your location ahead of your appointment) [facility] Urology Department Clinic at [facility] [address] [facility], [address], [facility], [address] [place] [address] Clinic After Hours [facility] Office Building [facility] [address] [place] [address] Clinic After Hours documented in this encounter [...] time each day. 120 capsule 11 09/26/2024 ferrous sulfate 325 (65 Fe) MG [...] Take 2 tablets by mouth nightly. 01/16/2021 estradiol (Estrace) 0.1 MG/GM vaginal cream Insert 1 gram into the vagina 3x/week 30 g 3 09/26/2024 trospium (Sanctura) 20 MG tablet Take 1 [...] POSTOPERATIVE DIAGNOSIS: Same SURGEON: Ceci Mitchell MD SAFETY TEACHER SURGEON(S): Gerry Cullen DO, Doug Lundy MD [...] the start of the case. A 19 Sammarinese rigid cystoscope was introduced into the patient's [...] of the renal pelvis. We advanced a Hyden catheter over our sensor wire and performed [...] leave stents bilaterally with strings. Used 7 Sammarinese by 24 cm double-J stents on strings. These were placed without difficulty and intraoperative fluoroscopy was used to confirm appropriate positioning with the proximal curls in the renal pelvises bilaterally in the distal curls in the bladder. An 18 Sammarinese García catheter was placed at the conclusion [...] Cullen DO PGY-3, Department of Urology Pager: [phone] Cosigned by Ceci Mitchell MD at 01/31/2025 [...] infarction) COPD (chronic obstructive pulmonary disease) ([facility]) Depression Fibromyalgia History of falling History [...] BREAST SURGERY N/A Breast Surgery Reconstruction from [employer] BREAST SURGERY N/A Breast Surgery from [employer] CHOLECYSTECTOMY N/A Cholecystotomy from [employer] KIDNEY SURGERY N/A Kidney Surgery from [employer] KNEE SURGERY N/A Knee Surgery from [employer] MASTECTOMY N/A Breast Surgery Mastectomy from [employer] SHOULDER SURGERY Right Shoulder Surgery Right from [employer] [3] No medications prior to admission. [4] Allergies Allergen Reactions Sulfa Drugs Anaphylaxis Ultram [Tramadol] Swelling lips swell Hydrocodone Unknown - Patient states they do not know rxn details [facility] is unaware of what reaction. Pedi-Pre Tape [place] [Wound Dressing Adhesive] Rash Wellbutrin [Bupropion] Rash [...] Care Team (Late st Contact Info) Description 05/16/2025 8:00 AM EDT Office Visit [facility] [place] [facility] [address] [facility], [address] [place] [address] Karly Gracia MD [address] [place] [address] 06/07/2025 1:00 PM EDT Office Visit [facility] [address] [place] [address] Tom Iraheta MD [address] [place] [address] documented as of this encounter Procedures Procedure Name Priority Date/Time Associated Diagnosis Comments POCT GLUCOSE METER UNSOLICITED RESULTS Routine 01/31/2025 11:39 AM EDT [place] LESS THAN 1 HOUR (NON-REPORTABLE) Routine 01/31/2025 11:14 AM EDT FUNGAL CULTURE, ROUTINE Routine 01/31/2025 10:23 AM EDT Gross hematuria URINE CULTURE Routine 01/31/2025 10:22 AM EDT Gross hematuria DC CYSTO/URETERO/PYELOS C,BX &/OR FULG LESN 01/31/2025 9:32 [...] for testing. Comment 01/31/2025 11:41 AM EDT [facility] Boom Boss ID Abbey Medina 01/31/2025 11:41 AM EDT [facility] Device ID [id number] 01/31/2025 11:41 AM EDT [facility] Specimen Type POC Capillary 01/31/2025 11:41 AM EDT [facility] Blood Capillary blood specimen / Unknown 01/31/2025 11:39 AM EDT 01/31/2025 11:41 AM EDT Result Tavon Mitchell MD LAB POINT OF CARE TE ST DOCKED DEVICE UNSOLICITED RESULTS Final Result Performing Organization Address [facility] Co de Phone Number [facility] [address] [place] [address] * [place] Less than 1 Hour Intraoperative (01/31/2025 11:14 AM EDT) Narrative IMAGING - 01/31/2025 11:15 AM EDT Images were obtained for surgical purposes. See Ceci Mitchell's surgical note in the patient's chart for the findings. Result Tavon Mitchell MD IMG FLUOROSCOPY PROCEDURES F inal Result Performing Organization Address [facility] Co de Phone Number IMAGING * (ABNORMAL) Fungal Culture, Routine (01/31/2025 10:23 AM EDT) Culture Confluent Growth Maira glabrata(A) 02/08/2025 11:50 AM EDT [facility] Urine Urinary bladder structure / Unknown 01/31/2025 10:23 AM EDT 01/31/2025 11:38 AM EDT Comment:Pre-op diagnosis: Gross hematuria Result Tavon Mitchell MD LAB MICROBIOLOGY - GENERAL O RDERABLES Final Result Performing Organization Address [facility] Co de Phone Number [facility] [address] [place] [address] * Urine Culture (01/31/2025 10:22 AM EDT) Culture No growth at day 1 02/01/2025 8:02 AM EDT [facility] Urine Urinary bladder structure / Unknown 01/31/2025 10:22 AM EDT 01/31/2025 11:38 AM EDT Comment:Pre-op diagnosis: Gross hematuria Result Tavon Mitchell MD LAB MICROBIOLOGY - GENERAL O RDERABLES Final Result Performing Organization Address City/[facility] Co de Phone Number [facility] [address] [place] [address] * (ABNORMAL) POCT glucose meter (01/31/2025 8:47 AM EDT) POCT Glucose 135(H) 74 - 99 mg/dL 01/31/2025 8:49 AM EDT [facility] Comment:Accuracy of a [...] Comment 01/31/2025 8:49 AM EDT [facility] Bo[employer] Boss ID Khai Jamison 02/01/20 8:49 AM EDT [facility] Device ID [id number] 01/31/2025 8:49 AM EDT [facility] Specimen Type POC Capillary 01/31/2025 8:49 AM EDT [facility] Blood Capillary blood specimen / Unknown 01/31/2025 8:47 AM EDT 01/31/2025 8:49 AM EDT Ceci Mitchell MD LAB POINT OF CARE TE ST DOCKED DEVICE UNSOLICITED RESULTS Final Result Performing Organization Address City/[facility] Co de Phone Number [facility] [address] [place] [address] documented in this encounter Visit Diagnoses Diagnosis [...] injection (CANCELED) As needed, Starting on Hermelinda 01/31/25 at 1017, Until Hermelinda 01/31/25 at 1125, Routine, Intraprocedure 1017 (Given - [...] documented as of this encounter Care Teams Outdoor Power Equipment Mechanic Relationship Specialty Start Date End Date Vignesh Pickens MD [address], [place] [id number] PCP - General 12/31/24 Cayla Erazo, LIZANDRO, DNP [address] [place] [address] Nurse Practitioner Urology 12/20/24 documented as of this encounter
--- OUTSIDE RECORDS SUMMARY | 2025-01-31 08:55 | XMS_ITS | Encounter Summary ---
Author Organization Healthcare Address [address] [place] [address] Care Team Providers Care Poultry Processor Name Role Phone Cayla Erazo APRN, DNP Unavailable [phone] Vignesh Pickens MD Primary Care Provider [phone] Reason for Visit * Auth/Cert (Routine) Specialty Diagnoses / Procedures Referred By Contelvie t Referred To Contact Diagnoses Gross hematuria Gross hematuria Procedures OR CYSTO/URETERO/PYELOSC,BX &/OR FULG LESN URETEROSCOPY, WITH BIOPSY POSSIBLE STENT PLACEMENTS Ceci Mitchell MD [address] [address] Phone: tel: fax: [facility] [address] [place] [address] Phone: tel: Referral ID Status Reason Start Date Expiration Date Visits Re quested Visits Authorized [id number] 1 1 Encounter Details Date Type Department Care Team (Late st Contact Info) Description 01/31/2025 8:55 AM EDT - 01/31/2025 10:10 AM EDT Surgery [facility] [address] [place] [address] Ceci Mitchell MD [address] [address] URETEROSCOPY,CYSTOSCOP Y, RETROGRADE PYELOGRAM, BILATERAL STENT PLACEMENT [96743 (CPT )] Surgery Details Date/Time Status Location OR Service Patient Class Case Class Case Type Trauma Case? 01/31/2025 8:55 AM Posted [facility] E-Electiv e Panel 1 Procedure [...] in the past 12 m [facility], were you homeless or living [...] drink first t rodríguez in the morning (EYE-DICER OPERATOR) to steady your nerves or to [...] your location ahead of your appointment) [facility] Urology Department Clinic at [facility] [address], [address] Floor, Wing [address], [address] [place] [address] Clinic After Hours [facility] Medical Office Building Urology Clinic [address] [place] [address] Clinic After Hours documented in this encounter [...] each day. 120 capsule 11 09/26/2024 6 ferrous sulfate 325 (65 Fe) MG tablet [...] POSTOPERATIVE DIAGNOSIS: Same SURGEON: Ceci Mitchell MD ASSEMBLER METAL BUILDING SURGEON(S): Gerry Cullen DO, Doug Lundy MD [...] the start of the case. A 19 [place] rigid cystoscope was introduced into the patient's [...] of the renal pelvis. We advanced a [place] catheter over our sensor wire and performed [...] the orifice with the assistance of a Spootrenstein catheter, and advanced a wire up to [...] leave stents bilaterally with strings. Used 7 [place] by 24 cm double-J stents on strings. These were placed without difficulty and intraoperative fluoroscopy was used to confirm appropriate positioning with the proximal curls in the renal pelvises bilaterally in the distal curls in the bladder. An 18 [place] García catheter was placed at the conclusion [...] Cullen DO PGY-3, Department of Urology Pager: [phone] Cosigned by Ceci Mitchell MD at 01/31/2025 [...] BREAST SURGERY N/A Breast Surgery Reconstruction from [facility] BREAST SURGERY N/A Breast Surgery from [facility] CHOLECYSTECTOMY N/A Cholecystotomy from [facility] KIDNEY SURGERY N/A Kidney Surgery from [facility] KNEE SURGERY N/A Knee Surgery from [facility] MASTECTOMY N/A Breast Surgery Mastectomy from [facility] SHOULDER SURGERY Right Shoulder Surgery Right from [facility] [3] No medications prior to admission. [4] Allergies Allergen Reactions Sulfa Drugs Anaphylaxis Ultram [Tramadol] Swelling lips swell Hydrocodone Unknown - Patient states they do not know rxn details [facility] is unaware of what reaction. Pedi-Pre Tape [place] [Wound Dressing Adhesive] Rash Wellbutrin [Bupropion] Rash [...] Description 05/16/2025 8:00 AM EDT Office Visit [facility] [address] [facility], [address] [place] [address] Karly Gracia MD [address] [place] [address] 06/07/2025 1:00 PM EDT Office Visit [facility] [address] [place] [address] Tom Iraheta MD [address] [place] [address] documented as of this encounter Procedures Procedure Name Priority Date/Time Associated Diagnosis Comments POCT GLUCOSE METER UNSOLICITED RESULTS Routine 01/31/2025 11:39 AM EDT FL LESS THAN 1 HOUR (NON-REPORTABLE) Routine 01/31/2025 11:14 AM EDT FUNGAL CULTURE, ROUTINE Routine 01/31/2025 10:23 AM EDT Gross hematuria URINE CULTURE Routine 01/31/2025 10:22 AM EDT Gross hematuria OR CYSTO/URETERO/PYELOS C,BX &/OR FULG LESN 01/31/2025 9:32 AM EDT Gross hematuria POCT GLUCOSE METER UNSOLICITED RESULTS Routine 01/31/2025 8:47 AM EDT documented in this encounter Results * (ABNORMAL) POCT glucose meter (01/31/2025 11:39 AM EDT) POCT Glucose 135(H) 74 - 99 mg/dL 01/31/2025 11:41 AM EDT [facility] Comment:Accuracy of a glucos e result [...] Comment 01/31/2025 11:41 AM EDT [facility] Lining Stitcher ID Abbey Medina 01/31/2025 11:41 AM EDT [facility]ARE LAB Device ID [id number] 01/31/2025 11:41 AM EDT [facility] Specimen Type POC Capillary 01/31/2025 11:41 AM EDT [facility] Blood Capillary blood specimen / Unknown 01/31/2025 11:39 AM EDT 01/31/2025 11:41 AM EDT Ceci Mitchell MD LAB POINT OF CARE TE ST DOCKED DEVICE UNSOLICITED RESULTS Final Result Performing Organization Address City/[facility]/ZIP Co de Phone Number [facility] [address] [place] [address] * [place] Less than 1 Hour Intraoperative (01/31/2025 11:14 AM EDT) Narrative IMAGING - 01/31/2025 11:15 AM EDT Images were obtained for surgical purposes. See Ceci Mitchell's surgical note in the patient's chart for the findings. us Ceci Mitchell MD IMG FLUOROSCOPY PROCEDURES F inal Result Performing Organization Address City/[facility]/ZIP Co de Phone Number IMAGING * (ABNORMAL) Fungal Culture, Routine (01/31/2025 10:23 AM EDT) Culture Confluent Growth Maira glabrata(A) 02/08/2025 11:50 AM EDT [facility] Urine Urinary bladder structure / Unknown 01/31/2025 10:23 AM EDT 01/31/2025 11:38 AM EDT Comment:Pre-op diagnosis: Gross hematuria us Ceci Mitchell MD LAB MICROBIOLOGY - GENERAL O RDERABLES Final Result Performing Organization Address City/[facility]/ZIP Co de Phone Number [facility] [address] [place] [address] * Urine Culture (01/31/2025 10:22 AM EDT) Culture No growth at day 1 02/01/2025 8:02 AM EDT [facility] Urine Urinary bladder structure / Unknown 01/31/2025 10:22 AM EDT 01/31/2025 11:38 AM EDT Comment:Pre-op diagnosis: Gross hematuria Ceci Mitchell MD LAB MICROBIOLOGY - GENERAL O RDERABLES Final Result Performing Organization Address City/[facility]/ZIP Co de Phone Number [facility] [address] [place] [address] * (ABNORMAL) POCT glucose meter (01/31/2025 8:47 [...] Comment 01/31/2025 8:49 AM EDT [facility]ALTH[facility]ARE LAB Lining Stitcher ID Khai Jamison 02/01/20 8:49 AM EDT HEALTHCARE LAB Device ID [id number] 01/31/2025 8:49 AM EDT [facility]ALTH[facility]ARE [facility] Specimen Type POC Capillary 01/31/2025 8:49 AM EDT [facility] Blood Capillary blood specimen / Unknown 01/31/2025 8:47 AM EDT 01/31/2025 8:49 AM EDT us Ceci Mitchell MD LAB POINT OF CARE TE ST DOCKED DEVICE UNSOLICITED RESULTS Final Result Performing Organization Address City/[facility]/ZIP Co de Phone Number [facility] [address] [place] [address] documented in this encounter Visit Diagnoses Diagnosis [...] on Hermelinda 625 at 1017, Until Hermelinda 6 at 1125, [...] documented as of this encounter Care Teams Poultry Processor Relationship Specialty Start Date End Date Vignesh Pickens MD [address] [place] [address] PCP - General 12/31/24 Cayla Erazo APRN, DNP [address] [facility] [address] [place] [address] Nurse Practitioner Urology 12/20/24 documented as of this encounter
--- OUTSIDE RECORDS SUMMARY | 2025-01-31 08:55 | XMS_ITS | Encounter Summary ---
Author Organization Healthcare Address [address] [place] [address] Care Team Providers Care Office Clin Asst Name Role Phone Cayla Erazo APRN, DNP Unavailable [phone] Vignesh Pickens MD Primary Care Provider [phone] Reason for Visit * Auth/Cert (Routine) Specialty Diagnoses / Procedures Referred By Contelvie t Referred To Contact Diagnoses Gross hematuria Gross hematuria Procedures ID CYSTO/URETERO/PYELOSC,BX &/OR FULG LESN URETEROSCOPY, WITH BIOPSY POSSIBLE STENT PLACEMENTS Ceci Mitchell MD [address] [address] Phone: tel: fax: [facility] [address] [place] [address] Phone: tel: Referral ID Status Reason Start Date Expiration Date Visits Re quested Visits Authorized [id number] 1 1 Encounter Details Date Type Department Care Team (Late st Contact Info) Description 01/31/2025 8:55 AM EDT - 01/31/2025 10:10 AM EDT Surgery [facility] [address] [place] [address] Ceci Mitchell MD [address] [address] URETEROSCOPY,CYSTOSCOP Y, RETROGRADE PYELOGRAM, BILATERAL STENT PLACEMENT [09976 (CPT )] Surgery Details Date/Time Status Location OR Service Patient Class Case Class Case Type Trauma Case? 01/31/2025 8:55 AM Posted ELMO [facility] E-Electiv e Panel 1 [...] were you homeless or living in a fci (including now)? No 08/20/2024 CAGE ASSESSMENT Answer [...] drink first t rodríguez in the morning (EYE-LODE MINER BLASTING) to steady your nerves or to get [...] confirm your location ahead of your appointment) [facility] Urology Department Clinic at [facility] [address], 2nd Floor, Wing [address], [address] [place] [address] Clinic After Hours [facility] Medical Office Building Urology Clinic [address] [place] [address] Clinic After Hours documented in this encounter [...] POSTOPERATIVE DIAGNOSIS: Same SURGEON: Ceci Mitchell MD MOBILE SECURITY ARCHITECT SURGEON(S): Gerry Cullen DO, Doug Lundy MD [...] the start of the case. A 19 Armenian rigid cystoscope was introduced into the patient's [...] of the renal pelvis. We advanced a Mcalpin catheter over our sensor wire and performed [...] the orifice with the assistance of a Medprivéenstein catheter, and advanced a wire up to [...] leave stents bilaterally with strings. Used 7 Armenian by 24 cm double-J stents on strings. These were placed without difficulty and intraoperative fluoroscopy was used to confirm appropriate positioning with the proximal curls in the renal pelvises bilaterally in the distal curls in the bladder. An 18 Armenian García catheter was placed at the conclusion [...] Cullen DO PGY-3, Department of Urology Pager: [phone] Cosigned by Ceci Mitchell MD at 01/31/2025 [...] BREAST SURGERY N/A Breast Surgery Reconstruction from [facility] BREAST SURGERY N/A Breast Surgery from [facility] CHOLECYSTECTOMY N/A Cholecystotomy from [facility] KIDNEY SURGERY N/A Kidney Surgery from [facility] KNEE SURGERY N/A Knee Surgery from [facility] MASTECTOMY N/A Breast Surgery Mastectomy from [facility] SHOULDER SURGERY Right Shoulder Surgery Right from [facility] [3] No medications prior to admission. [4] Allergies Allergen Reactions Sulfa Drugs Anaphylaxis Ultram [Tramadol] Swelling lips swell Hydrocodone Unknown - Patient states they do not know rxn details [facility] is unaware of what reaction. Pedi-Pre Tape Patterson [Wound Dressing Adhesive] Rash Wellbutrin [Bupropion] Rash [...] Support Medical Office Building Lab [address] [place] [address] 03/27/2025 1:00 PM EDT Office Visit Medical Office Building Urology [address] [facility], [address] [place] [address] Cayla Erazo, SOCIAL WORK LECTURER, DNP [address] [place] [address] 05/16/2025 8:00 AM EDT Office Visit [facility] [place] [facility] [address] [facility], [address] [place] [address] Karly Gracia MD [address] [place] [address] 06/07/2025 1:00 PM EDT Office Visit [facility] [address] [place] [address] Tom Iraheta MD [address] [place] [address] documented as of this encounter [...] Comment 01/31/2025 11:41 AM EDT HEALTHCARE LAB Chief Minister ID Abbey Medina 01/31/2025 11:41 AM EDT HEALTHCARE LAB Device ID [id number] 01/31/2025 11:41 AM EDT HEALTHCARE LAB Specimen Type POC Capillary 01/31/2025 11:41 AM EDT HEALTHCARE LAB Blood Capillary blood specimen / Unknown 01/31/2025 11:39 AM EDT 01/31/2025 11:41 AM EDT us Ceci Mitchell MD LAB POINT OF CARE TE ST DOCKED DEVICE UNSOLICITED RESULTS Final Result Performing Organization Address [facility]/ZIP Co de Phone Number HEALTHCARE LAB [address] [place] [address] * [place] Less than 1 Hour Intraoperative [...] Growth Maira glabrata(A) 02/08/2025 11:50 AM EDT [facility] Urine Urinary bladder structure / Unknown 01/31/2025 10:23 AM EDT 01/31/2025 11:38 AM EDT Comment:Pre-op diagnosis: Gross hematuria Ceci Mitchell MD LAB MICROBIOLOGY - GENERAL O RDERABLES Final Result Performing Organization Address [facility]/ZIP Co de Phone Number [facility] [address] [place] [address] * Urine Culture (01/31/2025 10:22 AM EDT) Culture No growth at day 1 02/01/2025 8:02 AM EDT [facility] Urine Urinary bladder structure / Unknown 01/31/2025 10:22 AM EDT 01/31/2025 11:38 AM EDT Comment:Pre-op diagnosis: Gross hematuria Ceci Mitchell MD LAB MICROBIOLOGY - GENERAL O RDERABLES Final Result Performing Organization Address [facility] [place] [address] * (ABNORMAL) POCT glucose meter (01/31/2025 8:47 [...] 01/31/2025 8:49 AM EDT [facility] Chief Minister ID Khai Jamison 02/01/20 8:49 AM EDT [facility] Device ID [id number] 01/31/2025 8:49 AM EDT HEALTHCARE LAB Specimen Type POC Capillary 01/31/2025 8:49 AM EDT HEALTHCARE LAB Blood Capillary blood specimen / Unknown 01/31/2025 8:47 AM EDT 01/31/2025 8:49 AM EDT us Ceci Mitchell MD LAB POINT OF CARE TE ST DOCKED DEVICE UNSOLICITED RESULTS Final Result HEALTHCARE LAB [address] [place] [address] documented in this encounter Visit Diagnoses Diagnosis [...] on Hermelinda 6 at 1017, Until Hermelinda 01/31/25 at 1125, [...] documented as of this encounter Care Teams Office Clin Asst Relationship Specialty Start Date End Date Vignesh Pickens MD [address] [place] [address] PCP - General 12/31/24 Cayla Erazo APRN, DNP [address] [facility] [address] [place] [address] Nurse Practitioner Urology 12/20/24 documented as of this encounter
--- OUTSIDE RECORDS SUMMARY | 2025-01-31 09:48 | XMS_ITS | Encounter Summary ---
Author Organization Healthcare Address [address] [place] [address] Care Team Providers Care Organ Pipe Finisher Name Role Phone Cayla Erazo APRN, FREDERICK Unavailable [phone] Vignesh Pickens MD Primary Care Provider [phone] Reason for Visit * Auth/Cert (Routine) Specialty Diagnoses / Procedures Referred By Clara stonre Referred To Contact Diagnoses Gross hematuria Gross hematuria Procedures [place] CYSTO/URETERO/PYELOSC,BX &/OR FULG LESN URETEROSCOPY, WITH BIOPSY POSSIBLE STENT PLACEMENTS Ceci Mitchell MD [address] [facility] [address] [place] [address] Phone: tel: fax: [facility] ROOM [address] [place] [address] Phone: tel: Referral ID Status Reason Start Date Expiration Date Visits Re quested Visits Authorized [id number] 1 1 Encounter Details Date Type Department Care Team (Late st Contact Info) Description 01/31/2025 9:48 AM EDT Anesthesia Event [facility] [address] [place] [id number] Nj Sears MD [address] [place] [address] Anesthesia Record Procedure Summary Procedure [...] Hand; Site Prep: Chlorhexidine ; Local Anesth: [place]; Technique: Anatomical landmarks; Inserted by: james orosco [...] No change to dentition. ; Placed by: NANOFABRICATION SPECIALIST; Removal Date: 01/31/25; Removal Time: 1122 01/31/25 [...] time [facility] or living in [...] drink first t rodríguez in the morning (EYE-SALES AND SERVICE CONSULTANT) to steady your nerves or to get rid of a hangover? 0 08/15/2024 CAGE Questionnaire Score 0 024 Utilities Answer Date Recorded In the past 12 months has e [employer], gas, oil, or water [employer] threatened to shut off services in your [...] and Staff Patient location during procedure: [place] NANOFABRICATION SPECIALIST: Migue Seay CRNA Performed: NANOFABRICATION SPECIALIST Patient Condition Indications for airway management: anesthesia [...] BIOPSY POSSIBLE STENT PLACEMENTS (Bilateral) Location: [address] / [place] Surgeons: Ceci Mitchell MD Department of [...] were no vitals filed for this visit. [place] body weight: 54.7 kg (120 lb 9.5 [...] Abnormal Ventricular Rate 77 Atrial Rate 77 [place] Interval 180 QRSD Interval 124 QT Interval 416 QTC Interval 470 P [place] 23 R [place] 268 T Wave [place] 67 Diagnosis Normal sinus rhythm Diagnosis Right [...] valvular disease. PFTs No results found for: [id number] , [id number] , [id number] , FVCPRED Relevant Problems Cardio (+) Asymptomatic bilateral carotid artery stenosis (+) Atrial premature depolarization (+) CAD (coronary artery disease), [place] coronary artery (+) Deep venous thrombosis of [...] Plan ASA 3 Plan was reviewed with: NANOFABRICATION SPECIALIST Anesthesia technique(s) discussed with the patient/family: general [...] BREAST SURGERY N/A Breast Surgery Reconstruction from [employer] BREAST SURGERY N/A Breast Surgery from [employer] CHOLECYSTECTOMY N/A Cholecystotomy from [employer] KIDNEY SURGERY N/A Kidney Surgery from [employer] KNEE SURGERY N/A Knee Surgery from [employer] MASTECTOMY N/A Breast Surgery Mastectomy from [employer] SHOULDER SURGERY Right Shoulder Surgery Right from [employer] [3] Allergies Allergen Reactions Sulfa Drugs Anaphylaxis Ultram [Tramadol] Swelling lips swell Hydrocodone Unknown - Patient states they do not know rxn details [facility] is unaware of what reaction. Pedi-Pre Tape [place] [Wound Dressing Adhesive] Rash Wellbutrin [Bupropion] Rash [...] Support Medical Office Building Lab [address] [id number] 03/27/2025 1:00 PM EDT Office Visit Medical Office Building Urology [address] [facility], [address] [place] [address] Cayla Erazo, EQUIPMENT MAINTENANCE TECH, DNP [address] [place] [address] 05/16/2025 8:00 AM EDT Office Visit [facility] [place] [address] [facility], [address] [place] [address] Karly Gracia MD [address] [place] [address] 06/07/2025 1:00 PM EDT Office Visit [facility] [address] [place] [address] Tom Iraheta MD [address] [place] [address] documented as of this encounter Procedures Procedure Name Priority Date/Time Associated Diagnosis Comments PB ANESTHESIA PLACEHOLDER Routine 01/31/2025 9:58 AM EDT [place] AN ELECTIVE ENDOTRACHEAL AIRWAY Routine 01/31/2025 9:58 AM EDT documented in this encounter Results * [place] AN ELECTIVE ENDOTRACHEAL AIRWAY, PB ANESTHESIA PLACEHOLDER (01/31/2025 9:58 AM EDT) Narrative Migue Seay CRNA - 01/31/2025 9:58 AM EDT Migue Seay CRNA 01/31/2025 10:45 AM Airway Date/Time: 01/31/2025 9:58 AM Reason: elective Airway not difficult General Information and Staff Patient location during procedure: [place] NANOFABRICATION SPECIALIST: Migue Seay CRNA Performed: LORETTA Patient Condition [...] documented as of this encounter Care Teams Organ Pipe Finisher Relationship Specialty Start Date End Date Vignesh Pickens MD [address] [place] [address] PCP - General 12/31/24 Cayla Erazo APRN, FREDERICK [address] [facility] [address] [place] [address] Nurse Practitioner Urology 12/20/24 documented as of this encounter
--- OUTSIDE RECORDS SUMMARY | 2025-01-31 09:48 | XMS_ITS | Encounter Summary ---
Author Organization Healthcare Address [address] [place] [address] Care Team Providers Care Elevator Mechanic Apprentice Name Role Phone Cayla Erazo APRN, FREDREICK Unavailable Vignesh Pickens MD Primary Care Provider [phone] Reason for Visit * Auth/Cert (Routine) Specialty Diagnoses / Procedures Referred By Clara stoner Referred To Contact Diagnoses Gross hematuria Gross hematuria Procedures [place] CYSTO/URETERO/PYELOSC,BX &/OR FULG LESN URETEROSCOPY, WITH BIOPSY POSSIBLE STENT PLACEMENTS Ceci Mitchell MD [address] [facility] [address] [place] [address] Phone: tel: fax: [facility]PERATING ROOM [address] [place] [address] Phone: tel: Referral ID Status Reason Start Date Expiration Date Visits Re quested Visits Authorized [id number] 1 1 Encounter Details Date Type Department Care Team (Late st Contact Info) Description 01/31/2025 9:48 AM EDT Anesthesia Event [facility] RO[facility] [address] [place] [address] Nj Sears MD [address] [place] [address] Anesthesia Record Procedure Summary Procedure [...] Hand; Site Prep: Chlorhexidine ; Local Anesth: [place]; Technique: Anatomical landmarks; Inserted by: james orosco [...] No change to dentition. ; Placed by: REFRIGERATION SYSTEMS INSTALLER; Removal Date: 01/31/25; Removal Time: 1122 01/31/25 [...] drink first t rodríguez in the morning (EYE-REPORTS DEVELOPER) to steady your nerves or to get rid of a hangover? 0 08/15/2024 CAGE Questionnaire Score 0 024 Utilities Answer Date Recorded In the past 12 months has e [employer], gas, oil, or water [employer] threatened to shut off services in your [...] and Staff Patient location during procedure: OR REFRIGERATION SYSTEMS INSTALLER: Migue Seay CRNA Performed: REFRIGERATION SYSTEMS INSTALLER Patient Condition Indications for airway management: anesthesia [...] WITH BIOPSY POSSIBLE STENT PLACEMENTS (Bilateral) Location: [address] / [place] Surgeons: Ceci Mitchell MD Department of [...] were no vitals filed for this visit. [place] body weight: 54.7 kg (120 lb 9.5 [...] Abnormal Ventricular Rate 77 Atrial Rate 77 [place] Interval 180 QRSD Interval 124 QT Interval 416 QTC Interval 470 P [place] 23 R [place] 268 T Wave [place] 67 Diagnosis Normal sinus rhythm Diagnosis Right [...] valvular disease. PFTs No results found for: [id number] , [id number] , [id number] , FVCPRED Relevant Problems Cardio (+) Asymptomatic bilateral carotid artery stenosis (+) Atrial premature depolarization (+) CAD (coronary artery disease), [place] coronary artery (+) Deep venous thrombosis of [...] Plan ASA 3 Plan was reviewed with: REFRIGERATION SYSTEMS INSTALLER Anesthesia technique(s) discussed with the patient/family: general [...] BREAST SURGERY N/A Breast Surgery Reconstruction from [facility] BREAST SURGERY N/A Breast Surgery from [facility] CHOLECYSTECTOMY N/A Cholecystotomy from [facility] KIDNEY SURGERY N/A Kidney Surgery from [facility] KNEE SURGERY N/A Knee Surgery from [facility] MASTECTOMY N/A Breast Surgery Mastectomy from [facility] SHOULDER SURGERY Right Shoulder Surgery Right from [facility] [3] Allergies Allergen Reactions Sulfa Drugs Anaphylaxis Ultram [Tramadol] Swelling lips swell Hydrocodone Unknown - Patient states they do not know rxn details [facility] is unaware of what reaction. Pedi-Pre Tape [place] [Wound Dressing Adhesive] Rash Wellbutrin [Bupropion] Rash [...] Description 05/16/2025 8:00 AM EDT Office Visit [facility] [place] [address] [facility], [address] [place] [address] Karly Gracia MD [address] [place] [address] 06/07/2025 1:00 PM EDT Office Visit [facility] [address] [place] [address] Tom Iraheta MD [address] [place] [address] documented as of this encounter Procedures Procedure Name Priority Date/Time Associated Diagnosis Comments PB ANESTHESIA PLACEHOLDER Routine 01/31/2025 9:58 AM EDT [place] AN ELECTIVE ENDOTRACHEAL AIRWAY Routine 01/31/2025 9:58 AM EDT documented in this encounter Results * AL AN ELECTIVE ENDOTRACHEAL AIRWAY, PB ANESTHESIA PLACEHOLDER (01/31/2025 9:58 AM EDT) Narrative Migue Seay CRNA - 01/31/2025 9:58 AM EDT Migue Seay CRNA 01/31/2025 10:45 AM Airway Date/Time: 01/31/2025 9:58 AM Reason: elective Airway not difficult General Information and Staff Patient location during procedure: OR REFRIGERATION SYSTEMS INSTALLER: Migue Seay CRNA Performed: REFRIGERATION SYSTEMS INSTALLER Patient Condition Indications for airway management: anesthesia [...] documented as of this encounter Care Teams Elevator Mechanic Apprentice Relationship Specialty Start Date End Date Vignesh Pickens MD [address] [place] [address] PCP - General 12/31/24 Cayla Erazo APRN, FREDERICK [address] [place] [address] Nurse Practitioner Urology 12/20/24 documented as of this encounter
--- OUTSIDE RECORDS SUMMARY | 2025-02-22 18:13 | XMS_ITS | Encounter Summary ---
Author Organization [facility] Address [address] [id number] Care Team Providers Care Escort Car Driver Name Role Phone Cayla Erazo APRN, DNP Unavailable [phone] Vignesh Pickens MD Primary Care Provider [phone] Reason for Visit * Reason Comments Altered Mental Status * Auth/Cert (Routine) Specialty Diagnoses / Procedures Referred By Contac t Referred To Contact Diagnoses Sepsis (CMS/HCC) UTI, CKD, Hyponatremia, COPD exacerbation Bobby Parra MD [address] [place] [address] Phone: tel: fax: [facility] Inpatient [address] [place] [address] Referral ID Status Reason Start Date Expiration Date Visits Re quested Visits Authorized [id number] 1 1 Encounter Details Date Type Department Care Team (Latest Contact Info) Description 02/22/2025 6:13 PM EDT - 03/02/2025 11:04 AM EDT Hospital Encounter [facility] Inpatient [address] [place] [id number] Luda Morton MD [address] [place] [address] Bobby Parra MD [address] [place] [address] Luda Ralph MD [address] [place] [address] Ludy Hill MD [address] [facility] [address] [place] [address] Madonna Singleton MD [address] [place] [address] Acute respiratory failure with hypoxia [...] organism (CMS/HCC); Chronic diastolic (congestive) heart failure ([facility]/HCC); 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 Do not crush or chew. 03/02/2025 fentaNYL (Duragesic) 12 MCG/HR Place 1 patch [...] Take 2 tablets by mouth nightly. 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 6 tablet 03/04/2025 estradiol (Estrace) 0.1 MG/GM vaginal cream Insert 1 gram into the vagina 3x/week 30 g 3 09/26/2024 trospium (Sanctura) 20 MG tablet Take 1 tablet (20 mg) by mouth 2 (two) times a day. 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 03/02/2025 documented as of this encounter Miscellaneous Notes [...] Anthony Vaughn Discharge Facility/Level of Care Needs: 3-Long Term Facility Current Outpatient/Agency/Support Group: shelter facility Transportation Anticipated: ([facility]) other (see comments) Outpatient/Agency/Support Group Needs: shelter facility Transportation Concerns: none Concerns to be Addressed: discharge planning Readmission Within the Last 30 Days: other (see comments) Patient/Family Anticipated Services at Transition: shelter rehabilitation services Patient/Family Anticipates Transition to: long-term [...] Care Transition Intervention: Promote Activity and Functional [place] Flowsheets Taken 03/02/2025 08 by Gayle Light [...] EDT Patient discharged at approximately 1040 via [facility] wheelchair transport. Report called to JHONNY Hawkins at [facility] in [place]. All appropriate paperwork and personal belongings sent withpatient. * Lawanda [facility] - Gayle Light RN - 03/02/2025 9:03 AM EDT Images from the original note were not included. [id number] Sepsis Sepsis is a very serious condition. [...] (ICU). Last Reviewed Date: 2023 00:00:00 ?? [id number] [employer]. All rights reserved. This information is not intended as a substitute for professional medical care. Always follow your healthcare professional's instructions. * Lawanda [place] - Gayle Light RN - 03/02/2025 9:03 AM EDT Images from the original note were not included. [id number] Discharge Instructions for Acute Kidney Injury You [...] tiredness Last Reviewed Date: 2022 00:00:00 ?? [id number] [employer]. All rights reserved. This information is not [...] Pickens MD [address] / [place] [address] Referring provider name and address: Jordan Carl MD [address] [place] [address] [place] [address] Chief Concern, Brief History of Present Illness, [...] negative infectious workup. She was extubated to [place] w/o complications on 02/24/25. Currently saturating well [...] 120 at OSH, 125 on arrival to [facility] - Serum osm wnl, urine osm 408 [...] Your Medications These medications were sent to [facility] - Jeanette RENETTA Reid - [facility] [place] [address] fentaNYL 12 MCG/HR naloxone 4 mg/0.1 mL [...] Resolved Hospital Problems Hospital * (Principal) Sepsis ([facility]) Post Discharge Instructions Take [facility] as precribed Outpatient Follow-Up Future Appointments Date Time Provider Department Center 03/07/2025 10:00 AM Doug Chapman MD UROCHKYC [facility] 03/27/2025 10:30 AM [facility] 3 USGSGSH GSH 03/27/2025 11:50 AM GSH [facility] BAKERY DEMONSTRATOR LABGSMOB None 03/27/2025 1:00 PM Cayla Erazo APRN, [place] UROGSHMOB [facility] 05/16/2025 8:00 AM Karly Gracia MD CARGSMOB [facility] 06/07/2025 1:00 PM Tom Iraheta MD [...] Note Eileen May 64 y.o. female CSN: [id number] Admission: 02/22/2025 6:13 PM Primary Problem: Sepsis [...] Chair transport scheduled today at 9am To: [facility] Report: [phone] Discharge Summary fax: [phone] Escribe new meds/controls to: [facility] will remain available through discharge if needs arise. Daniela Thomas SURFACE LAY OUT TECHNICIAN, BARK PEELER Systems Engineering Manager * Gayle De León RN - 03/02/2025 8:44 AM EDT Images from the original note were not included. [id number] Acute Kidney Injury: Care Instructions Overview Acute [...] this instruction, always ask your healthcare professional. [employer] disclaims any warranty or liability for your use of this information. ?? [id number] [employer], i-dispo.com. * Lawanda Katerine - Gayle Light, RN - 03/02/2025 8:44 AM EDT Images from the original note were not included. [id number] Urinary Tract Infections in Women Urinary tract [...] started. Last Reviewed Date: 2023 00:00:00 ?? [id number] The [employer]. All rights reserved. This information is not [...] Measures: fluid excess minimized 03/01/20252242 by Aleyda Hollye RN Flowsheets Taken 02/28/2025 0816 by Gayle [...] Anthony Vaughn Discharge Facility/Level of Care Needs: 3-Long Term Facility Current Outpatient/Agency/Support Group: shelter facility Transportation Anticipated: ([facility]) other (see comments) Outpatient/Agency/Support Group Needs: shelter facility Transportation Concerns: none Concerns to be Addressed: discharge planning Readmission Within the Last 30 Days: other (see comments) Patient/Family Anticipated Services at Transition: shelter rehabilitation services Patient/Family Anticipates Transition to: long-term [...] Anthony Vaughn Discharge Facility/Level of Care Needs: 3-Long Term Facility Current Outpatient/Agency/Support Group: shelter facility Transportation Anticipated: ([facility]) other (see comments) Outpatient/Agency/Support Group Needs: shelter facility Transportation Concerns: none Concerns to be Addressed: discharge planning Readmission Within the Last 30 Days: other (see comments) Patient/Family Anticipated Services at Transition: shelter rehabilitation services Patient/Family Anticipates Transition to: long-term [...] Ongoing, Progressing Intervention: Promote Activity and Functional [place] Flowsheets Taken 03/01/2025 0800 by Gayle Light [...] negative infectious workup. She was ext[place] to [place] w/o complications on 02/24/25. Currently saturating well [...] resumed home meds continue Mirabegron HFrEF 2/2 [facility] - 11/2024 LVEF 35-40% - [...] 120 at OSH, 125 on arrival to [facility] - Serum osm wnl, urine osm 408 [...] meds today F: soft and bite sized, BILLING SUPERVISOR eval Code Status: Assume Full Medically Ready for Discharge: * Progress Notes - Anthony Vaughn - 03/01/2025 9:27 AM EDT Case Management Discharge Note Eileen May 64 y.o. female CSN: [id number] Admission: 02/22/2025 6:13 PM Primary Problem: Sepsis (CMS/HCC) Primary Coremaking Supervisor: Primary Caregiver: Private caregiver Assistance Available at Discharge: Current Outpatient/Agency/Support Group: shelter facility Availability of Care Givers (#Hours): 24 hours Family/Coremaking Supervisor(s) Willingness Assessed to care for patient at home: Yes Family/Coremaking Supervisor(s) Readiness Assessed to care for patient at home: Yes Housing Circumstances-Z Codes: Housing Circumstances (select all that apply): None Applicable Discharge Facility/Level of Care Needs: Discharge Facility/Level of Care Needs: 3-Long Term Facility Patient/Family Anticipated Services at Transition: Patient/Family Anticipated Services at Transition: shelter, rehabilitation services DME/Equipment Needed after Discharge: Equipment [...] Notice Recieved By: Pt at bedside Follow-up: [facility] [address] [place], [place] [id number] Follow up Vingesh Pickens MD [address] [id number] Follow up Discharge Transportation: Transportation Anticipated: other (see comments) ([facility]) Transportation Home at Discharge: Other(Comment) ([facility]) Has discharge transport been arranged?: Yes What day is the transport expected?: 03/01/25 What time is the transport expected?: 0900 Follow Up Transport: Transportation Needed to Follow up Appoinments: Other(Comment) ([place]) Additional Comments: Plan of care reviewed with Pt's care team; Pt is medically ready for discharge. Pt is a resident [facility] in [place]. [facility] fpg. Weekend CM to fax Pt's discharge summary to [phone], and bedside RN to call report to [phone]. Facility uses [facility] in [place]. SW met with Pt at bedside, who [...] negative infectious workup. She was ext[place] w/o complications on 02/24/25. Currently saturating well [...] PAL MURF, Bcx NGTD S/p extubation 02/24, [place] for SPO2 92%+ PLAN: Supportive care for [...] resumed home meds continue Mirabegron HFrEF 2/2 [facility] - 11/2024 LVEF 35-40% - [...] 120 at OSH, 125 on arrival to [facility] - Serum osm wnl, urine osm 408 [...] meds today F: soft and bite sized, BILLING SUPERVISOR eval Code Status: Assume Full Medically Ready for Discharge: * Progress Notes - Anthony Vaughn - 02/28/2025 11:11 AM EDT Case Management Adult Progress Note Eileen May 64 y.o. female CSN: [id number] Admission: 02/22/2025 6:13 PM Primary Problem: Sepsis (CMS/HCC) Anticipated Discharge Date: TBD Has Discharge Plans Changed? No Additional Comments Plan of care reviewed with Pt's care team; Pt is not medically ready for discharge. Dental extraction planned for today. Anticipate discharge readiness tomorrow. Pt [facility] a [facility] at [facility]. SW sent updated notes to [...] patient Goal: Patient-Specific Goal (Individualized) 02/28/2025823 by Gayel Light RN Outcome: Ongoing, Progressing Flowsheets Taken [...] Progressing Intervention: Prevent Skin Injury 02/28/2025823 by Gayel Light RN Flowsheets Taken 02/28/2025 07 by [...] comments) Current Outpatient/Agency/Support Group: inpatient rehabilitation facility OT,PT,BILLING SUPERVISOR Anticipated Changes Related to Illness: inability to care for self Transportation Anticipated: medical transport Outpatient/Agency/Support Group Needs: inpatient rehabilitation facility Transportation Concerns: none Current Discharge Risk: physical impairment Concerns to be Addressed: basic needs discharge planning Readmission Within the Last 30 Days: previous discharge plan unsuccessful Patient/Family Anticipated Services at Transition: [employer] durable medical equipment rehabilitation services Patient/Family Anticipates [...] comments) Current Outpatient/Agency/Support Group: inpatient rehabilitation facility OT,PT,BILLING SUPERVISOR Anticipated Changes Related to Illness: inability to care for self Transportation Anticipated: medical transport Outpatient/Agency/Support Group Needs: inpatient rehabilitation facility Transportation Concerns: none Current Discharge Risk: physical impairment Concerns to be Addressed: basic needs discharge planning Readmission Within the Last 30 Days: previous discharge plan unsuccessful Patient/Family Anticipated Services at Transition: [facility] [employer] medical [employer] rehabilitation services Patient/Family Anticipates [...] Ongoing, Progressing Intervention: Promote Activity and Functional [place] Flowsheets Taken 02/28/2025 0816 by Gayle Light [...] negative infectious workup. She was ext[place] to [place] w/o complications on 02/24/25. Mentating well back [...] negative infectious workup. She was extubated to [place] w/o complications on 02/24/25. Events of past [...] Mental status is at baseline. Results: Lab [place] today CBC WBC ?? Hb ?? Plt [...] in the posterior aspect of tooth #31. [place] wear in tooth number 8, 9 and [...] negative infectious workup. She was extubated to [place] w/o complications on 02/24/25. #Acute hypoxic respiratory [...] MURF, Bcx NGTD - S/p extubation 02/24, [place] for SPO2 92%+ PLAN: - Supportive care [...] home meds - continue Mirabegron #HFrEF 2/2 [facility] - 11/2024 LVEF 35-40% - [...] 120 at OSH, 125 on arrival to [facility] - Serum osm wnl, urine osm 408 [...] meds today F: soft and bite sized, BILLING SUPERVISOR eval A: oxy, acetaminophen, fentanyl patch (home [...] Chuy Graham DO Internal Medicine PGY-2 Pager [phone]; Epic Chat preferred Procedures [1] [2] PRN [...] negative infectious workup. She was extubated to [place] w/o complications on 02/24/25. During her hospital [...] is being transferred from ICU team to [facility] Team 14 Major Active Problems: Currently [...] home meds - continue Mirabegron #HFrEF / [facility] - 11/2024 LVEF 35-40% - [...] meds today F: soft and bite sized, BILLING SUPERVISOR eval A: oxy, acetaminophen, fentanyl patch (home [...] 120 at OSH, 125 on arrival to [facility] - Serum osm wnl, urine osm 408 [...] Lunch Supplement frequency: Dinner Lunch supplement: Tony Sherwood Quantity for Lunch of Tony Sherwood Packet One Dinner supplement: Tony Fruit Punch [...] Chuy Graham DO Internal Medicine PGY-2 Pager [phone]; Epic Chat preferred * Care Plan - [...] Ongoing, Progressing Intervention: Promote Activity and Functional [place] Flowsheets (Taken 02/26/2025 1750 by Bassem Jay, [...] Ongoing, Progressing Intervention: Promote Activity and Functional [place] Flowsheets (Taken 02/26/2025 1750) Activity Assistance Provided: assistance refused education provided Self-Care Promotion: independence encouraged * Progress Notes - Eileen Ortega - 02/26/2025 11:16 AM EDT Physical Therapy Evaluation Patient Name: Eileen May Today's Date: 02/26/2025 PT Discharge Recommendations: Subacute rehab Equipment Recommended: Defer to facility History Eileen May is 64 y.o. female admitted 02/22/2025 for work-up of Sepsis ([facility]). Problem List Active Hospital Problems Diagnosis Date Noted Sepsis ([facility]) 02/22/2025 Procedures Past 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 Patient has a past medical history of Anxiety, Breast cancer, Cerebral infarction, unspecified ([facility]), COPD (chronic obstructive pulmonary disease) ([facility]), Depression, Fibromyalgia, History of falling, Hypertension, Personal [...] relaxing. Participants in Care Family/Caregiver Present: No Ethylbenzene Cracking Supervisor: Not Applicable Presentation Oxygen Therapy: None (Room [...] session; RN aware Home Living/Set-up Home Type: long-term facility Home Adaptive Equipment: Wheelchair-manual, Hospital bed [...] From: Caregiver Level of Mobility: Wheelchair/Scooter Mobility [place]: Independent wheelchair propulsion History of Falls: No ADL Performance: Needs assistance Bathing: Needs assist Upper Body Dressing: Independent Lower Body Dressing: Needs assist Grooming: Independent Toileting: Needs assist Eating: Independent Home Management Skills: Unable to perform Patient/Family Goals Return home at [facility]. Objective Pain Pt reports having some tooth [...] change. Bed Mobility Exam: Rolling/Turning Level of [place]: Moderate assist (50% patient effort) (bilaterally) Physical/Nonphysical Assist: Verbal Cues, Minimal cues, 1 person + 1 person to manage equipment Assistive Device: Other (drawsheet) Bed Mobility Exam: Scooting/Bridging Level of [place]: Maximum assist (25% patient's effort) (to head [...] space Standardized Assessments Standardized Assessments Standardized Assessments: [facility] 6-Clicks Mobility Assessment [facility] 6-Clicks Mobility Assessment Difficulty patient has turning [...] female admitted 02/22/2025 for work-up of Sepsis ([facility]). Hospital Course 1. [place] coma scale total score 9-12, at arrival to emergency department 2. Acute cystitis without hematuria 3. Acute respiratory failure with hypercapnia 4. COPD exacerbation ([facility]) Procedures Past 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 Patient has a past medical history of Anxiety, Breast cancer, Cerebral infarction, unspecified ([facility]), COPD (chronic obstructive pulmonary disease) ([facility]), Depression, Fibromyalgia, History of falling, Hypertension, Personal [...] date Participants in Care Family/Caregiver Present: No Ethylbenzene Cracking Supervisor: Not Applicable Presentation Oxygen Therapy: None (Room [...] treatment as tolerated Home Living/Set-Up Home Type: long-term facility Home Adaptive Equipment: Wheelchair-manual, Hospital bed [...] From: Caregiver Level of Mobility: Wheelchair/Scooter Mobility [place]: Independent wheelchair propulsion History of Falls: No [...] of treatment space BED MOBILITY Level of [place] Physical/Non- physical Assist Adaptive Equipment Utilized Rolling/ [...] to rot this date. TRANSFERS Level of [place] Physical/Non- physical Assist Adaptive Equipment Utilized Sit to Stand Stand to sit Bed to Chair Toilet Transfer Shower Transfer Interventions Patient politely deferring transfer tasks this date; educated on use of amputee slingfor increased safety as patient expresses nervousness with transfer tasks. FUNCTIONAL MOBILITY Level of [place] Distance Adaptive Equipment Utilized Ambulation Comments Patient does not ambulate at baseline* ADL / Self-Care Tasks Level of [place] Adaptive Equipment Utilized Interventions Feeding Setup, Standby [...] increased patient rest/education throughout session. Standardized Assessments [facility] 6-Click Daily Activities Help from Other: Don/Doff Regular Lower Body Clothings: Total Help From Other: Bathing: A lot Help From Other: Toileting: Total Help From Other: Don/Doff Upper Body Clothings: Little Help From Other: Grooming: Little Help From Other: Eating Meals: None [facility] 6 Click - Daily Activities Score: 14 [...] negative infectious workup. She was ext[place] w/o complications on 02/24/25. Events of past [...] negative infectious workup. She was extubated to [place] w/o complications on 02/24/25. #Acute hypoxic respiratory [...] MURF, Bcx NGTD - S/p extubation 02/24, [place] for SPO2 92%+ PLAN: - Supportive care [...] 120 at OSH, 125 on arrival to [facility] - Serum osm wnl, urine osm 408 [...] meds today F: soft and bite sized, BILLING SUPERVISOR eval A: oxy, acetaminophen, fentanyl patch (home [...] Chuy Graham, DO Internal Medicine PGY-2 Pager [phone]; Epic Chat preferred Procedures [1] [2] PRN [...] Precautions: precautions maintained Taken 02/23/2025 1254 by eTmi Mao RN Fever Reduction/Comfort Measures: lightweight bedding [...] -Schedule patient to follow-up on 5th floor [facility] dent[facility] clinic for extraction of #15 underlocal anesthesia. -we will arrange transport to clinic from hospital bed. - Diet: Regular; NPO at midnight prior to surgery -For extraction of one tooth it is not warranted to stop current anticoagulation therapy. -Follow current recommendations of Primary team. [facility] [employer] Department of Oral & Maxillofacial Surgery [address] [facility] Fifth Floor, [address] [place] [address] Dispo: Continue Current Level of Care Bert iLm DMD [1] Past 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: Diagnosis Date [...] BREAST SURGERY N/A Breast Surgery Reconstruction from [facility] BREAST SURGERY N/A Breast Surgery from [facility] CHOLECYSTECTOMY N/A Cholecystotomy from [facility] KIDNEY SURGERY N/A Kidney Surgery from [facility] KNEE SURGERY N/A Knee Surgery from [facility] MASTECTOMY N/A Breast Surgery Mastectomy from [facility] SHOULDER SURGERY Right Shoulder Surgery Right from [facility] [3] No current facility-administered medications on file [...] is unaware of what reaction. Pedi-Pre Tape [place] [Wound Dressing Adhesive] Rash Wellbutrin [Bupropion] Rash Cosigned by Jin Rodriguez DDS at 02/26/2025 10:04 AM EDT Associated attestation - Jin Rodriguez DDS - 02/26/2025 10:04 AM EDT I reviewed with Dr. Bowling and agree with the plan * Progress Notes - Sarah Rand - 02/25/2025 3:11 PM EDT Case Management Adult Initial Progress Note Eileen Chayito aMy 64 y.o. female CSN: [id number] Admission: 02/22/2025 6:13 PM Primary Problem: Sepsis (CMS/HCC) Cash Specialist reviewed chart and spoke with patient to complete this Initial Case Management Assessment. PCP: Vignesh Pickens MD Emergency Contact: Extended Emergency Contact Information Primary Emergency Contact: Val Howell Mobile Relation: Sister Ethylbenzene Cracking Supervisor needed? No Insurance: Primary Visit Coverage Payer Plan Sponsor Code Group Number Group Name MEDICARE MEDICARE A & B Primary Visit Coverage Subscriber Subscriber ID Subscriber Name Subscriber [facility] Subscriber Address [id number] EILEEN MAY [phone] [address] Secondary Visit Coverage Payer Plan Sponsor Code Group Number Group Name MEDICAID-[facility] MEDICAID TRADITIONAL Secondary Visit Coverage Subscriber Subscriber ID Subscriber Name Subscriber N Subscriber Address [id number] EILEEN MAY [phone] [place] [address] Patient information: Primary Caregiver: Private caregiver Support System: Immediate family Daily Living Activities: Functional Status: Moderate assistance Living Arrangements: Jail Type of Residence: long-term facility [facility] [place] [address] Current DME: Equipment Currently Used at Home: [...] living facility Discharge Transport: Follow Up Transport: [facility] provides follow up transportation. Patient will need assistance with transportation when medically stable. Home Health / Home Infusion / Outpatient Dialysis Services: None reported. Living Will/Advance Directive/Power of Slasher Sawyer /Guardian: None reported. Sister/[place] is NOK. Additional Comments: Case Management will [...] Note Eileen May 64 y.o. female CSN: [id number] Room/Bed 121/121A Nutrition evaluation type: follow-up Reason [...] Supplemental oxygen O2 Delivery Method: Nasal cannula [place] Coma Scale Score: 15 Ray Scale Score: [...] 36.76 Weight Evaluation: Obese-Class 2 (BMI 35-39.9) [place] Body Weight (kg): 48.55 (adjusted for left AKA) Percent [place] Body Weight: 198 Adjusted Body Weight (kg): [...] oz) Estimated Needs: Kcal/ K-30 Kcal Provided: 4501-2116 Kcal Needs Based On: Adjusted weight (60.5 kg) Gm Protein/ Kg : 1.2-1.5 Protein Provided: 73-91 Protein Needs Based On: Adjusted weight (60.5 kg) Fluid Provided: 1 ml/kcal or per MD team Metabolic Cart Study Results: Current Nutrition Intake: Diet Supplements: None Diet Order: Adult Diet Diet Texture: Full Liquid Adult Carbohydrate Restriction: Consistent CHO 2 (0918-7708 [place], 80 g/meal) Percent Meals Eaten (%): 50% x 1 meal Diet Experience and Nutrition History: Diet Education Provided: Will monitor Pertinent home medications: ascorbic acid, calcitriol, cholecalciferol, cyanocobalamin, ferrous sulfate, insulin, loperamide, magnesium oxide, MVI, ondansetron, Percocet, pantoprazole Catholic needs: Nutrition Focused Physical Exam: Unable to Complete Exam: Patient unable to participate Physical exam performed on (date): Assessment of Malnutrition: Nutrition Problem: Inadequate oral intake related to current clinical condition as evidenced by full liquid diet. Status of Nutrition Diagnosis: Ongoing Nutrition Interventions and Recommendations: - Advance diet as appropriate per BILLING SUPERVISOR - CHO 2 diet - Add Boost [...] BREAST SURGERY N/A Breast Surgery Reconstruction from [facility] BREAST SURGERY N/A Breast Surgery from [facility] CHOLECYSTECTOMY N/A Cholecystotomy from [facility] KIDNEY SURGERY N/A Kidney Surgery from [facility] KNEE SURGERY N/A Knee Surgery from [facility] MASTECTOMY N/A Breast Surgery Mastectomy from [facility] SHOULDER SURGERY Right Shoulder Surgery Right from [facility] [3] atorvastatin, 40 mg, Oral, Nightly baclofen, [...] negative infectious workup. She was extubated to [place] w/o complications on 02/24/25. Events of past 24 hours: - no acute events overnight - was extubated 02/24/25 to [place], doing well, currently above goal on 2L [...] negative infectious workup. She was extubated to [place] w/o complications on 02/24/25. #Acute hypoxic respiratory [...] Bcx NGTD PLAN: - S/p extubation 02/24, [place] for SPO2 92%+ - Supportive care for [...] meds today - on Mirabegron #HFrEF 2/2 [facility] - 11/2024 LVEF 35-40% - [...] 120 at OSH, 125 on arrival to [facility] - Serum osm wnl, urine osm 408 [...] meds today F: full liquid carb 2, BILLING SUPERVISOR eval A: oxy, acetaminophen, prn dilaudid IV, [...] Chuy Graham DO Internal Medicine PGY-2 Pager [phone]; Epic Chat preferred Procedures [1] [2] PRN [...] Note Eileen May 64 y.o. female CSN: [id number] Room/Bed 121/121A Nutrition evaluation type: assessment Reason [...] 36.39 Weight Evaluation: Obese-Class 2 (BMI 35-39.9) [place] Body Weight (kg): 48.55 (adjusted for left AKA) Percent [place] Body Weight: 198 Adjusted Body Weight (kg): [...] oz) Estimated Needs: Kcal/ K-30 Kcal Provided: 6458-3484 Kcal Needs Based On: Adjusted weight (60.5 [...] loperamide, magnesium oxide, MVI, ondansetron, Percocet, pantoprazole Catholic needs: Nutrition Focused Physical Exam: Unable to Complete Exam: Weekend coverage Physical exam performed on (date): pending Assessment of Malnutrition: Nutrition Problem: Inadequate oral intake related to current clinical condition as evidenced by GCS 11, NPO diet order. Status of Nutrition Diagnosis: New Nutrition Interventions and Recommendations: PO diet advancement per BILLING SUPERVISOR/MD team. TF recs if warranted: Diabetisource AC [...] BREAST SURGERY N/A Breast Surgery Reconstruction from [facility] BREAST SURGERY N/A Breast Surgery from [facility] CHOLECYSTECTOMY N/A Cholecystotomy from [facility] KIDNEY SURGERY N/A Kidney Surgery from [facility] KNEE SURGERY N/A Knee Surgery from [facility] MASTECTOMY N/A Breast Surgery Mastectomy from [facility] SHOULDER SURGERY Right Shoulder Surgery Right from [facility] [3] atorvastatin, 40 mg, Nasogastric, Nightly clopidogrel, [...] Transition Plan Flowsheets (Taken 02/23/2025 1254 by Teim Mao RN) Readmission Within the Last 30 [...] limited positioning supports utilized pressure points protected iqch-hy-afhdsx areas padded tubing/devices free from skin contact [...] continued concern or difficult irrigating, contact Urology security operations center operator. #hypovolemic Hyponatremia, resolved - baseline Na 130-135 - Na 120 at OSH, 125 on arrival to [facility] - Serum osm wnl, urine osm 408 [...] Ralph. Boyd Romano. Internal Medicine PGY-2 Pager [phone] Critical Care Performed by: Luda Ralph MD [...] MD Consult ordered by: Luda Ralph MD [facility] Urology Consult Note 02/23/25 Service Requesting Consultation: MICU CC: Hematuria HPI: Eileen May is a 64 y.o. 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 Hospital Problem List: Principal Problem: Sepsis ([facility]) Assessment: Eileen May is a 64 y.o. [...] need to be upsized to a 20 Tajik catheter to allow for easier drainage. We [...] continued concern or difficult irrigating, contact Urology security operations center operator. Jake Sheets MD Urology PGY-2 [1] [...] CKD (CMS/HCC); Chronic kidney disease, stage 3a ([facility]/HCC); Sepsis with encephalopathy without septic shock, due to unspecified organism ([facility]) Images from the original note were not [...] AMS with GCS 6-7 on arrival to [facility] therefore intubated for airway protection - pt [...] continued concern or difficult irrigating, contact Urology security operations center operator. #Hyponatremia - baseline Na 130-135 - Na 120 at OSH, 125 on arrival to [facility] PLAN: - will continue to monitor BID [...] Chuy Graham, DO Internal Medicine PGY-2 Pager [phone]; Epic Chat preferred Critical Care Performed by: [...] Least Restrictive Safety Strategies Flowsheets (Taken 02/22/20252235) Safety Deposit Supervisor Protection: torso covered tubing secured Diversional Activities: [...] and AMS. Patient presented to OSH from [facility] due to concern for hyponatremia, encephalopathy [...] exacerbation, given duonebs and azithromycin. Transferred to [facility] for higher level of care. On arrival to [facility] ED, patient GCS 6-7, VBG7.28/60/41, patient intubated [...] AMS with GCS 6-7 on arrival to [facility] therefore intubated for airway protection PLAN - [...] 120 at OSH, 125 on arrival to [facility] - will continue to monitor with q4h Na HFrEF 2/2 [facility] - 11/2024 LVEF 35-40% - [...] Rachel Shipman MD PGY-3, Internal Medicine Pager: [phone] Procedures [1] Family History Problem Relation Name [...] bag 0.25 mg Intravenous q10 min PRN Plumwood, Leon B, DO 0.25 mg at 02/22/251953 Or HYDROmorphone (Dilaudid) bolus from bag 0.5 mg Intravenous q10 min PRN Plumwood, Leon B, DO 0.5 mg at 02/22/251926 hydromorphone 20 mg in NS 100 mL infusion (200 mcg/mL) 0.25-2 mg/hr Intravenous Titrated Plumwood, Leon B, DO 1.25 mL/hr at 02/22/251926 0.25 mg/hr at 02/22/251926 ipratropium-albuterol (Duo-Neb) 0.5-2.5 mg/3 mL nebulizer solution 3 mL 3 mL Nebulization Once Plumwood, Leon B, DO mupirocin (Bactroban) 2 % [...] evaluated the patient with the resident/fellow via [facility] ICU audio- visual support as available. [...] CTHAP: no acute findings Steroids in ED [facility] ED -> transferred here. VBG completed [...] Status: She is disoriented. Comments: GCS 9 [place] Coma Scale Score: 11 ED Course & [...] Daily Order ID Start Status Ordering Provider [id number] 02/23/25 0800 Ordered MORTONLUDA Stevens 02/24/25 0600 [...] Continuous Order ID Start Status Ordering Provider [id number] 02/22/25 1859 Ordered LUDA MORTON [id number] 02/22/25 2000 Completed LUDA MORTON [id number] 02/23/25 0800 Ordered LUDA MORTON T 02/23/251999 Scheduled MORTONLUDA 02/24/25 0800 Scheduled MORTON, LUDA Cisneros 02/24/251999 Scheduled MORTON, LUDA T 02/25/25 0800 Scheduled MORTON, LUDA T 02/25/251999 Scheduled MORTON LUDA Cisneros 02/26/25 0800 Scheduled MORTON, LUDA Cisneros 02/26/251999 Scheduled MORTON, LUDA Cisneros Ordered MORTON LUDA Cisneros 02/22/251857 End Tidal co2 Monitoring Continuous Order ID Start Status Ordering Provider [id number] 02/22/251858 Ordered MORTONLUDA Stevens [id number] 02/22/251999 Completed MORTON LUDA Cisneros [id number] 02/23/25 08 Ordered MORTON LUDA Cisneros 02/23/251999 [...] mucosal integrityUntil discontinued Ordered LUDA MORTON 02/22/251857 [place] teeth every 12 hours Until discontinued Ordered [...] intracranial process but multiple chronic infarcts and qxbn-zd-pkhyceav small-vessel disease. Additionally CT angio of the [...] within normal ranges. Lactate also normal at [facility]. No further advanced imaging was [...] (cerebral infarction) COPD (chronic obstructive pulmonary disease) ([facility]) Depression Fibromyalgia History of falling History of [...] BREAST SURGERY N/A Breast Surgery Reconstruction from [facility] BREAST SURGERY N/A Breast Surgery from [facility] CHOLECYSTECTOMY N/A Cholecystotomy from [facility] KIDNEY SURGERY N/A Kidney Surgery from [facility] KNEE SURGERY N/A Knee Surgery from [facility] MASTECTOMY N/A Breast Surgery Mastectomy from [facility] SHOULDER SURGERY Right Shoulder Surgery Right from [facility] [3] Family History Problem Relation Name Age [...] is unaware of what reaction. Pedi-Pre Tape [place] [Wound Dressing Adhesive] Rash Wellbutrin [Bupropion] Rash [...] Description 05/16/2025 8:00 AM EDT Office Visit [facility] [address], [address] [place] [address] Karly Gracia MD [address] [place] [address] 06/07/2025 1:00 PM EDT Office Visit [facility] [address] [facility] [address] [place] [address] Tom Iraheta MD [address] [place] [address] documented as of this encounter [...] EDT EXTUBATION Routine 02/24/2025 9:49 AM EDT NM CRITICAL CARE, E/M 30-74 MINUTES Routine 02/24/2025 7:08 AM EDT Acute respiratory failure with hypoxia and hypercapnia Acute kidney injury superimposed on CKD ([facility]) Chronic kidney disease, stage 3a ([facility]) Hyponatremia Acute encephalopathy Sepsis with encephalopathy without septic shock, due to unspecified organism ([facility]) Chronic diastolic (congestive) heart failure ([facility]) POCT GLUCOSE METER UNSOLICITED RESULTS Routine 02/24/2025 [...] AND TREAT Routine 02/23/2025 10:25 AM EDT NM CRITICAL CARE, E/M 30-74 MINUTES Routine 02/23/2025 9:10 AM EDT Acute respiratory failure with hypoxia and hypercapnia Acute kidney injury superimposed on CKD ([facility]) Chronic kidney disease, stage 3a ([facility]) Hyponatremia Acute encephalopathy Sepsis with encephalopathy without septic shock, due to unspecified organism ([facility]) SODIUM, PLASMA Timed 02/23/2025 8:34 AM EDT [...] - 99 mg/dL 03/02/2025 8:14 AM EDT [facility] Comment:Accuracy of [...] Comment 03/02/2025 8:14 AM EDT HEALTHCARE LAB Health And Wellness Advisor ID Stefanie Frances 025 8:14 AM EDT [facility] Device ID [id number] 03/02/2025 8:14 AM EDT [facility] Specimen Type POC Capillary 03/02/2025 8:14 AM EDT [facility]ALTH[facility]ARE [facility] Blood Capillary blood specimen / Unknown 03/02/2025 8:13 AM EDT 03/02/2025 8:14 AM EDT us Madonna Mani [facility] POINT OF CARE TE ST DOCKED DEVICE UNSOLICITED RESULTS Final Result Performing Organization Address City/State/[facility] Co de Phone Number [facility] [address] [place] [address] * (ABNORMAL) POCT glucose meter (03/01/2025 7:46 PM EDT) [facility] POCT Glucose 134(H) 74 - 99 mg/dL [...] 03/01/2025 7:47 PM EDT [facility] Health And Wellness Advisor ID Kamron Freire 03/01/2025 7:47 PM EDT [facility] Device ID [id number] 03/01/2025 7:47 PM EDT [facility] Specimen Type POC Capillary 03/01/2025 7:47 PM EDT HEALTH[facility]ARE LAB Blood Capillary blood specimen / Unknown 03/01/2025 7:46 PM EDT 03/01/2025 7:47 PM EDT us Madonna Singleton MD LAB POINT OF CARE TE ST DOCKED DEVICE UNSOLICITED RESULTS Final Result Performing Organization Address City/[facility]/ZIP Co de Phone Number HEALTHCARE LAB [address] [place] [address] * (ABNORMAL) POCT glucose meter (03/01/2025 5:42 [...] Comment 03/01/2025 5:45 PM EDT HEALTHCARE LAB Health And Wellness Advisor ID NyNorberto padron 03/01/20 25 5:45 PM EDT HEALTHCARE LAB Device ID [id number] 03/01/2025 5:45 PM EDT HEALTHCARE LAB Specimen Type POC Capillary 03/01/2025 5:45 PM EDT [facility] Blood Capillary blood specimen / Unknown 03/01/2025 5:42 PM EDT 03/01/2025 5:45 PM EDT us Madonna Singleton MD LAB POINT OF CARE TE ST DOCKED DEVICE UNSOLICITED RESULTS Final Result Performing Organization Address City/[facility] Co de Phone Number HEALTHCARE LAB [address] [place] [address] * SEND HECTOR MESSAGE (03/01/2025 4:15 PM EDT) Urine Urine specimen obtained by clean catch procedure / Unknown Non-blood Collection / Unknown 03/01/2025 4:15 PM EDT 03/01/2025 4:26 PM EDT us Madonna Singleton MD LAB URINE ORDERABLES Final Resul t Performing Organization Address City/[facility]/ZIP Co de Phone Number [facility] [address] [place] [address] * (ABNORMAL) Urine Culture (03/01/2025 4:15 PM EDT) [facility] Signature Culture 10,000 - 100,000 CFU/mL Enterobacter cloacae complex(A) CHRISTIANO 03/05/2025 12:12 PM EDT [facility] Comment: This isolate has been identified using the FDA Approved Novomerer [place] System Edited result: Previously reported as [...] component Ertapenem is no longer being reported. Madonna Singleton MD LAB MICROBIOLOGY - GENERAL ORDER GIO Final Result Performing Organization Address [facility] Co de Phone Number [facility] [address] [place] [address] * Urinalysis Microscopic Examination (03/01/2025 4:15 PM EDT) Urine Urine specimen obtained by clean catch procedure / Unknown Non-blood Collection / Unknown 03/01/2025 4:15 PM EDT 03/01/2025 4:26 PM EDT us Madonna Singleton MD LAB URINE ORDERABLES Final Resul t Performing Organization Address [facility] Co de Phone Number [facility] [address] [place] [address] * Urine Salmon Panel (03/01/2025 4:15 PM EDT) Extra Sent for Culture 03/01/2025 6:01 PM EDT [facility] Urine Urine specimen obtained by clean catch procedure / Unknown Non-blood Collection / Unknown 03/01/2025 4:15 PM EDT 03/01/2025 4:26 PM EDT us Madonna Singleton MD LAB URINE ORDERABLES Final Resul t Performing Organization Address [facility] de Phone Number [facility] [address] [place] [address] * (ABNORMAL) Urinalysis with reflex microscopic (Culture NOT Included) (03/01/2025 4:15 PM EDT) Color, Urine Yellow LAB URINALYSIS - AUTOMATED METHOD 03/01/2025 4:34 PM EDT [facility] Clarity, Urine Cloudy LAB URINALYSIS - AUTOMATED METHOD 03/01/2025 4:34 PM EDT [facility] Spec [place], Urine 1.008 1.005 - 1.030 LAB URINALYSIS - AUTOMATED METHOD 03/01/2025 4:34 PM EDT [facility] pH, Urine 6.5 5.0 - 8.0 LAB URINALYSIS - AUTOMATED METHOD 03/01/2025 4:34 PM EDT [facility] Protein, Urine 30(A) Negative mg/dL LAB URINALYSIS - AUTOMATED METHOD 03/01/2025 4:34 PM EDT [facility] Glucose, Urine Negative Negative mg/dL LAB URINALYSIS - AUTOMATED METHOD 03/01/2025 4:34 PM EDT [facility] Ketones, Urine Negative Negative mg/dL LAB URINALYSIS - AUTOMATED METHOD 03/01/2025 4:34 PM EDT [facility] Blood, Urine Large(A) Negative LAB URINALYSIS - AUTOMATED METHOD 03/01/2025 4:34 PM EDT [facility] Bilirubin, Urine Negative Negative LAB URINALYSIS - AUTOMATED METHOD 03/01/2025 4:34 PM EDT [facility] Urobilinogen, Urine 0.2 0.2 to 1.0 mg/dL LAB URINALYSIS - AUTOMATED METHOD 03/01/2025 4:34 PM EDT [facility] Leukocytes, Urine Large(A) Negative LAB URINALYSIS - AUTOMATED METHOD 03/01/2025 4:34 PM EDT [facility] Nitrite, Urine Negative Negative LAB URINALYSIS - AUTOMATED METHOD 03/01/2025 4:34 PM EDT [facility] RBC, Urine >50(A) 0 to 3 /HPF LAB URINALYSIS - AUTOMATED METHOD 03/01/2025 4:34 PM EDT [facility] WBC, Urine >50(A) 0 to 5 /HPF LAB URINALYSIS - AUTOMATED METHOD 03/01/2025 4:34 PM EDT [facility] Squamous Epithelial Cells 3 - 5 0 to 5 /HPF LAB URINALYSIS - AUTOMATED METHOD 03/01/2025 4:34 PM EDT [facility] Hyaline Casts 0 - 2 0 to 5 /LPF LAB URINALYSIS - AUTOMATED METHOD 03/01/2025 4:34 PM EDT [facility] Bacteria, Urine Negative Negative LAB URINALYSIS - AUTOMATED METHOD 03/01/2025 4:34 PM EDT [facility] Urine Urine specimen obtained by clean catch procedure / Unknown Non-blood Collection / Unknown 03/01/2025 4:15 PM EDT 03/01/2025 4:26 PM EDT Madonna Singleton MD LAB URINE ORDERABLES Final Resul t [facility] [address] [place] [address] * (ABNORMAL) POCT glucose meter (03/01/2025 12:03 PM EDT) [facility] POCT Glucose 206(H) 74 - 99 mg/dL [...] Comment 03/01/2025 12:05 PM EDT HEALTHCARE LAB Health And Wellness Advisor ID Nancy Hidalgo 03/01/2025 12:05 PM EDT HEALTHCARE LAB Device ID [id number] 03/01/2025 12:05 PM EDT HEALTHCARE LAB Specimen Type POC Capillary 03/01/2025 12:05 PM EDT [facility] Blood Capillary blood specimen / Unknown 03/01/2025 12:03 PM EDT 03/01/2025 12:05 PM EDT Madonna Singleton MD LAB POINT OF CARE TE ST DOCKED DEVICE UNSOLICITED RESULTS Final Result Performing Organization Address City/[facility]/ZIP Co de Phone Number [facility] [address] [place] [address] * (ABNORMAL) POCT glucose meter (03/01/2025 7:59 AM EDT) [facility] POCT Glucose 200(H) 74 - 99 mg/dL [...] 03/01/2025 8:01 AM EDT [facility] Health And Wellness Advisor ID Nancy Hidalgo 03/01/2025 8:01 AM EDT [facility] Device ID [id number] 03/01/2025 8:01 AM EDT [facility] Specimen Type POC Capillary 03/01/2025 8:01 AM EDT HEALTHCARE LAB Blood Capillary blood specimen / Unknown 03/01/2025 7:59 AM EDT 03/01/2025 8:01 AM EDT us Madonna Mani [facility] POINT OF CARE TE ST DOCKED DEVICE UNSOLICITED RESULTS Final Result [facility] [address] [place] [id number] * (ABNORMAL) CBC and Differential (03/01/2025 4:08 AM EDT) WBC Count 6.83 3.70 - 10.30 10*3/uL LAB HEMATOLOGY METHOD 03/01/2025 4:54 AM EDT [facility] RBC Count 3.61(L) 3.90 - 5.20 10*6/uL LAB HEMATOLOGY METHOD 03/01/2025 4:54 AM EDT [facility] HGB 9.2(L) 11.2 - 15.7 g/dL LAB HEMATOLOGY METHOD 03/01/2025 4:54 AM EDT [facility] HCT 29.9(L) 34.0 - 45.0 % LAB HEMATOLOGY METHOD 03/01/2025 4:54 AM EDT [facility] Platelet Count 294 155 - 369 10*3/uL LAB HEMATOLOGY METHOD 03/01/2025 4:54 AM EDT [facility] MCV 83 79 - 98 fL LAB HEMATOLOGY METHOD 03/01/2025 4:54 AM EDT [facility] MCH 25.5(L) 26.0 - 32.0 pg LAB HEMATOLOGY METHOD 03/01/2025 4:54 AM EDT [facility] MCHC 30.8 30.7 - 35.5 g/dL LAB HEMATOLOGY METHOD 03/01/2025 4:54 AM EDT [facility] RDW 15.1(H) 11.5 - 14.5 % LAB HEMATOLOGY METHOD 03/01/2025 4:54 AM EDT [facility] MPV 9.2 8.8 - 12.5 fL LAB HEMATOLOGY METHOD 03/01/2025 4:54 AM EDT [facility] nRBC 0.0 <=0.0 per 100 WBCs LAB HEMATOLOGY METHOD 03/01/2025 4:54 AM EDT [facility] Differential Type Automated LAB HEMATOLOGY METHOD 03/01/2025 4:54 AM EDT [facility] Neutrophils % 56 % LAB HEMATOLOGY METHOD 03/01/2025 4:54 AM EDT [facility] Lymphocytes % 25 % LAB HEMATOLOGY METHOD 03/01/2025 4:54 AM EDT [facility] Monocytes % 11 % LAB HEMATOLOGY METHOD 03/01/2025 4:54 AM EDT [facility] Eosinophils % 6 % LAB HEMATOLOGY METHOD 03/01/2025 4:54 AM EDT [facility] Basophils % 1 % LAB HEMATOLOGY METHOD 03/01/2025 4:54 AM EDT [facility] Immature Granulocytes % 1 % LAB HEMATOLOGY METHOD 03/01/2025 4:54 AM EDT [facility] Neutrophils Absolute 3.86 1.60 - 6.10 10*3/uL LAB HEMATOLOGY METHOD 03/01/2025 4:54 AM EDT [facility] Lymphocytes Absolute 1.70 1.20 - 3.90 10*3/uL LAB HEMATOLOGY METHOD 03/01/2025 4:54 AM EDT [facility] Monocytes Absolute 0.74 0.30 - 0.90 10*3/uL LAB HEMATOLOGY METHOD 03/01/2025 4:54 AM EDT [facility] Eosinophils Absolute 0.44 0.00 - 0.50 10*3/uL LAB HEMATOLOGY METHOD 03/01/2025 4:54 AM EDT [facility] Basophils Absolute 0.05 0.00 - 0.10 10*3/uL LAB HEMATOLOGY METHOD 03/01/2025 4:54 AM EDT [facility] Immature Granulocytes Absolute 0.04 0.00 - 0.06 10*3/uL LAB HEMATOLOGY METHOD 03/01/2025 4:54 AM EDT [facility] Blood Venous blood specimen / Unknown Venipuncture / Unknown 03/01/2025 4:08 AM EDT 03/01/2025 4:42 AM EDT [facility] - 03/01/2025 4:54 AM EDT Therapeutic decision making should be based on absolute values, rather than percentages. us Madonna Singleton MD LAB BLOOD ORDERABLES Final Resul t Performing Organization Address City/[facility]/ZIP Co de Phone Number [facility] [address] [place] [address] * Magnesium, Plasma (03/01/2025 4:08 AM EDT) Magnesium, Plasma 2.0 1.9 - 2.4 mg/dL 03/01/2025 5:14 AM EDT [facility] Blood Venous blood specimen / Unknown Venipuncture / Unknown 03/01/2025 4:08 AM EDT 03/01/2025 4:43 AM EDT us Madonna Singleton MD LAB BLOOD ORDERABLES Final Resul t Performing Organization Address [facility] Co de Phone Number [facility] [address] [place] [address] * (ABNORMAL) Basic Metabolic Panel, Plasma (03/01/2025 4:08 AM EDT) Glucose, Plasma 205(H) 74 - 99 mg/dL 03/01/2025 5:14 AM EDT [facility] BUN, Plasma 40(H) 8 - 23 mg/dL 03/01/2025 5:14 AM EDT [facility] Creatinine, Plasma 1.84(H) 0.60 - 1.10 mg/dL 03/01/2025 5:14 AM EDT [facility] BUN/Creatinine Ratio 22 03/01/2025 5:14 AM EDT [facility] Sodium, Plasma 125(L) 136 - 145 mmol/L 03/01/2025 5:14 AM EDT [facility] Potassium, Plasma 4.5 3.6 - 4.9 mmol/L 03/01/2025 5:14 AM EDT [facility] Chloride, Plasma 91(L) 97 - 107 mmol/L 03/01/2025 5:14 AM EDT [facility] CO2, Plasma 23 22 - 29 mmol/L 03/01/2025 5:14 AM EDT [facility] Anion Gap 11 6 - 16 mmol/L 03/01/2025 5:14 AM EDT [facility] Total Calcium, Plasma 8.8(L) 8.9 - 10.2 mg/dL 03/01/2025 5:14 AM EDT [facility] eGFRcr 30.1 mL/min/1.7 3m*2 03/01/2025 5:14 AM EDT [facility] Comment:Reported eGFRcr in m L/min/1.73m2 is based the CKD-EPI 2020 equation that does not use a race coefficient. Blood Venous blood specimen / Unknown Venipuncture / Unknown 03/01/2025 4:08 AM EDT 03/01/2025 4:43 AM EDT us Madonna Singleton MD LAB BLOOD ORDERABLES Final Resul t Performing Organization Address City/[facility] Co de Phone Number [facility] [address] [place] [address] * Phosphorus, Plasma (03/01/2025 4:08 AM EDT) Phosphorus, Plasma 4.4 2.5 - 4.5 mg/dL 03/01/2025 5:14 AM EDT [facility] Blood Venous blood specimen / Unknown Venipuncture / Unknown 03/01/2025 4:08 AM EDT 03/01/2025 4:43 AM EDT us Madonna Singleton MD LAB BLOOD ORDERABLES Final Resul t [facility] [address] [place] [address] * (ABNORMAL) POCT glucose meter (03/01/2025 3:09 AM EDT) POCT Glucose 187(H) 74 - 99 mg/dL 03/01/2025 3:35 AM EDT [facility] Comment:Accuracy of a glucos e result [...] Comment 03/01/2025 3:35 AM EDT HEALTHCARE LAB Health And Wellness Advisor ID Pat Young 03/01/2025 3:35 AM EDT HEALTHCARE LAB Device ID [id number] 03/01/2025 3:35 AM EDT [facility]ALTH[facility]ARE LAB Specimen Type POC Capillary 03/01/2025 3:35 AM EDT [facility] LAB Blood Capillary blood specimen / Unknown 03/01/2025 3:09 AM EDT 03/01/2025 3:35 AM EDT us Madonna Singleton MD LAB POINT OF CARE TE ST DOCKED DEVICE UNSOLICITED RESULTS Final Result [facility] [address] [place] [address] * (ABNORMAL) POCT glucose meter (02/28/2025 8:25 PM EDT) [facility] POCT Glucose 258(H) 74 - 99 mg/dL [...] Comment 02/28/2025 8:42 PM EDT HEALTHCARE LAB Health And Wellness Advisor ID Pat Young 02/28/2025 8:42 PM EDT HEALTHCARE LAB Device ID [id number] 02/28/2025 8:42 PM EDT HEALTHCARE LAB Specimen Type POC Capillary 02/28/2025 8:42 PM EDT [facility]ARE LAB Blood Capillary blood specimen / Unknown 02/28/2025 8:25 PM EDT 02/28/2025 8:42 PM EDT us Madonna Singleton MD LAB POINT OF CARE TE ST DOCKED DEVICE UNSOLICITED RESULTS Final Result [facility] [address] [place] [address] * (ABNORMAL) POCT glucose meter (02/28/2025 4:59 PM EDT) [facility] POCT Glucose 300(H) 74 - 99 mg/dL [...] Comment 02/28/2025 5:00 PM EDT [facility]ALTHCARE LAB Health And Wellness Advisor ID Nancy Hidalgo 02/28/2025 5:00 PM EDT HEALTHCARE LAB Device ID [id number] 02/28/2025 5:00 PM EDT HEALTHCARE LAB Specimen Type POC Capillary 02/28/2025 5:00 PM EDT [facility]ARE LAB Blood Capillary blood specimen / Unknown 02/28/2025 4:59 PM EDT 02/28/2025 5:00 PM EDT [facility] Mani [facility] LAB POINT OF CARE TE ST DOCKED DEVICE UNSOLICITED RESULTS Final Result Performing Organization Address City/[facility]/ZIP Co de Phone Number [facility] [address] [place] [address] * (ABNORMAL) CBC and Differential (02/28/2025 1:04 PM EDT) [facility] WBC Count 7.39 3.70 - 10.30 10*3/uL LAB HEMATOLOGY METHOD 02/28/2025 1:37 PM EDT [facility] RBC Count 4.30 3.90 - 5.20 10*6/uL LAB HEMATOLOGY METHOD 02/28/2025 1:37 PM EDT [facility] HGB 11.0(L) 11.2 - 15.7 g/dL LAB HEMATOLOGY METHOD 02/28/2025 1:37 PM EDT [facility] HCT 35.0 34.0 - 45.0 % LAB HEMATOLOGY METHOD 02/28/2025 1:37 PM EDT [facility] Platelet Count 399(H) 155 - 369 10*3/uL LAB HEMATOLOGY METHOD 02/28/2025 1:37 PM EDT [facility] MCV 81 79 - 98 fL LAB HEMATOLOGY METHOD 02/28/2025 1:37 PM EDT [facility] MCH 25.6(L) 26.0 - 32.0 pg LAB HEMATOLOGY METHOD 02/28/2025 1:37 PM EDT [facility] MCHC 31.4 30.7 - 35.5 g/dL LAB HEMATOLOGY METHOD 02/28/2025 1:37 PM EDT [facility] RDW 15.5(H) 11.5 - 14.5 % LAB HEMATOLOGY METHOD 02/28/2025 1:37 PM EDT [facility] MPV 9.0 8.8 - 12.5 fL LAB HEMATOLOGY METHOD 02/28/2025 1:37 PM EDT [facility] nRBC 0.0 <=0.0 per 100 WBCs LAB HEMATOLOGY METHOD 02/28/2025 1:37 PM EDT [facility] Differential Type Automated LAB HEMATOLOGY METHOD 02/28/2025 1:37 PM EDT [facility] Neutrophils % 62 % LAB HEMATOLOGY METHOD 02/28/2025 1:37 PM EDT [facility] Lymphocytes % 21 % LAB HEMATOLOGY METHOD 02/28/2025 1:37 PM EDT [facility] Monocytes % 9 % LAB HEMATOLOGY METHOD 02/28/2025 1:37 PM EDT [facility] Eosinophils % 6 % LAB HEMATOLOGY METHOD 02/28/2025 1:37 PM EDT [facility] Basophils % 1 % LAB HEMATOLOGY METHOD 02/28/2025 1:37 PM EDT [facility] Immature Granulocytes % 1 % LAB HEMATOLOGY METHOD 02/28/2025 1:37 PM EDT [facility] Neutrophils Absolute 4.64 1.60 - 6.10 10*3/uL LAB HEMATOLOGY METHOD 02/28/2025 1:37 PM EDT [facility] Lymphocytes Absolute 1.54 1.20 - 3.90 10*3/uL LAB HEMATOLOGY METHOD 02/28/2025 1:37 PM EDT [facility] Monocytes Absolute 0.69 0.30 - 0.90 10*3/uL LAB HEMATOLOGY METHOD 02/28/2025 1:37 PM EDT [facility] Eosinophils Absolute 0.41 0.00 - 0.50 10*3/uL LAB HEMATOLOGY METHOD 02/28/2025 1:37 PM EDT [facility] Basophils Absolute 0.05 0.00 - 0.10 10*3/uL LAB HEMATOLOGY METHOD 02/28/2025 1:37 PM EDT [facility] Immature Granulocytes Absolute 0.06 0.00 - 0.06 10*3/uL LAB HEMATOLOGY METHOD 02/28/2025 1:37 PM EDT [facility] Blood Venous blood specimen / Unknown Venipuncture / Unknown 02/28/2025 1:04 PM EDT 02/28/2025 1:28 PM EDT Narrative [facility] - 02/28/2025 1:37 PM EDT Therapeutic decision making should be based on absolute values, rather than percentages. us Madonna Singleton MD LAB BLOOD ORDERABLES Final Resul t Performing Organization Address City/[facility] Co de Phone Number [facility] [address] [place] [address] * (ABNORMAL) Magnesium, Plasma (02/28/2025 1:04 PM EDT) Magnesium, Plasma 1.7(L) 1.9 - 2.4 mg/dL 02/28/2025 1:45 PM EDT [facility] Blood Venous blood specimen / Unknown Venipuncture / Unknown 02/28/2025 1:04 PM EDT 02/28/2025 1:14 PM EDT us Madonna Singleton MD LAB BLOOD ORDERABLES Final Resul t Performing Organization Address City/[facility]/ZIP Co de Phone Number [facility] [address] [place] [address] * (ABNORMAL) Basic Metabolic Panel, Plasma (02/28/2025 1:04 PM EDT) Glucose, Plasma 166(H) 74 - 99 mg/dL 02/28/2025 1:45 PM EDT [facility] BUN, Plasma 40(H) 8 - 23 mg/dL 02/28/2025 1:45 PM EDT [facility] Creatinine, Plasma 1.99(H) 0.60 - 1.10 mg/dL 02/28/2025 1:45 PM EDT [facility] BUN/Creatinine Ratio 20 02/28/2025 1:45 PM EDT [facility] Sodium, Plasma 130(L) 136 - 145 mmol/L 02/28/2025 1:45 PM EDT [facility] Potassium, Plasma 4.6 3.6 - 4.9 mmol/L 02/28/2025 1:45 PM EDT [facility] Chloride, Plasma 93(L) 97 - 107 mmol/L 02/28/2025 1:45 PM EDT [facility] CO2, Plasma 24 22 - 29 mmol/L 02/28/2025 1:45 PM EDT [facility] Anion Gap 13 6 - 16 mmol/L 02/28/2025 1:45 PM EDT [facility] Total Calcium, Plasma 9.3 8.9 - 10.2 mg/dL 02/28/2025 1:45 PM EDT [facility] eGFRcr 27.4 mL/min/1.7 3m*2 02/28/2025 1:45 PM EDT [facility] Comment:Reported eGFRcr in m L/min/1.73m2 is based the CKD-EPI 2020 equation that does not use a race coefficient. Blood Venous blood specimen / Unknown Venipuncture / Unknown 02/28/2025 1:04 PM EDT 02/28/2025 1:14 PM EDT us Madonna Mani [facility] LAB BLOOD ORDERABLES Final Resul t [facility] [address] [place] [address] * Phosphorus, Plasma (02/28/2025 1:04 PM EDT) Phosphorus, Plasma 4.1 2.5 - 4.5 mg/dL 02/28/2025 1:45 PM EDT [facility] Blood Venous blood specimen / Unknown Venipuncture / Unknown 02/28/2025 1:04 PM EDT 02/28/2025 1:14 PM EDT us Madonna Singleton MD LAB BLOOD ORDERABLES Final Resul t Performing Organization Address City/[facility] Co de Phone Number [facility] [address] [place] [address] * (ABNORMAL) POCT glucose meter (02/28/2025 12:17 PM EDT) POCT Glucose 161(H) 74 - 99 mg/dL [...] for testing. Comment 02/28/2025 12:19 PM EDT [facility] Health And Wellness Advisor ID Nancy Hidalgo 02/28/2025 12:19 PM EDT HEALTHCARE LAB Device ID [id number] 02/28/2025 12:19 PM EDT [facility] Specimen Type POC Capillary 02/28/2025 12:19 PM EDT [facility] Blood Capillary blood specimen / Unknown 02/28/2025 12:17 PM EDT 02/28/2025 12:19 PM EDT us Madonna Singleton MD LAB POINT OF CARE TE ST DOCKED DEVICE UNSOLICITED RESULTS Final Result Performing Organization Address City/[facility]/ZIP Co de Phone Number [facility]ARE [facility] [address] [place] [address] * (ABNORMAL) POCT glucose meter (02/27/2025 8:12 PM EDT) POCT Glucose 211(H) 74 - 99 mg/dL [...] Comment 02/27/2025 8:14 PM EDT HEALTHCARE LAB Health And Wellness Advisor ID Pat Young 02/27/2025 8:14 PM EDT HEALTHCARE LAB Device ID [id number] 02/27/2025 8:14 PM EDT HEALTHCARE LAB Specimen Type POC Capillary 02/27/2025 8:14 PM EDT [facility]ARE LAB Blood Capillary blood specimen / Unknown 02/27/2025 8:12 PM EDT 02/27/2025 8:14 PM EDT us Madonna Singleton MD LAB POINT OF CARE TE ST DOCKED DEVICE UNSOLICITED RESULTS Final Result [facility] [address] [place] [address] * (ABNORMAL) POCT glucose meter (02/27/2025 5:20 PM EDT) [facility] POCT Glucose 171(H) 74 - 99 mg/dL 02/27/2025 5:21 PM EDT HEALTH[facility]ARE LAB Comment:Accuracy of a [...] Comment 02/27/2025 5:21 PM EDT [facility]ARE LAB Health And Wellness Advisor ID Nancy Hidalgo 02/27/2025 5:21 PM EDT HEALTHCARE LAB Device ID [id number] 02/27/2025 5:21 PM EDT [facility]ALTH[facility]ARE LAB Specimen Type POC Capillary 02/27/2025 5:21 PM EDT [facility] Blood Capillary blood specimen / Unknown 02/27/2025 5:20 PM EDT 02/27/2025 5:21 PM EDT us Madonna Singleton MD LAB POINT OF CARE TE ST DOCKED DEVICE UNSOLICITED RESULTS Final Result Performing Organization Address [facility] Co de Phone Number [facility] [address] [place] [address] * (ABNORMAL) POCT glucose meter (02/27/2025 12:29 [...] for testing. Comment 02/27/2025 12:30 PM EDT [facility] Health And Wellness Advisor ID Daniela Carroll 025 12:30 PM EDT HEALTHCARE LAB Device ID [id number] 02/27/2025 12:30 PM EDT HEALTH[facility]ARE LAB Specimen Type POC Capillary 02/27/2025 12:30 PM EDT [facility] LAB Blood Capillary blood specimen / Unknown 02/27/2025 12:29 PM EDT 02/27/2025 12:30 PM EDT Ludy Hill MD LAB POINT OF CARE TE ST DOCKED DEVICE UNSOLICITED RESULTS Final Result Performing Organization Address [facility] de Phone Number [facility] [address] [place] [address] * XR Panorex (02/27/2025 12:13 PM EDT) [...] in the posterior aspect of tooth #31. Rathdrum wear in tooth number 8, 9 and 23. No periapical lucency Procedure Note Lucas Cristobal MD - 02/27/2025 CLINICAL INDICATION: Odontogenic infection TECHNIQUE: XR PANOREX COMPARISON: None. FINDINGS: Rounded lucency in tooth #6. Aggressive destruction in the posterioraspect of tooth #31. Rathdrum wear in tooth number 8, 9 and 23. No periapicallucency IMPRESSION: Dental caries in tooth #6 and 31 without abscess. CRITICAL RESULT: No. COMMUNICATION: Per this written report. Drafted by Lucas Cristobal MD on 02/27/2025 12:22 PM Final report signed by Lucas Cristobal MD on 02/27/2025 12:25 PM us Ludy Hill MD IMG XR PROCEDURES Final [...] Comment 02/27/2025 8:21 AM EDT [facility]ALTHCARE LAB Health And Wellness Advisor ID Daniela Carroll 025 8:21 AM EDT HEALTHCARE LAB Device ID [id number] 02/27/2025 8:21 AM EDT HEALTHCARE LAB Specimen Type POC Capillary 02/27/2025 8:21 AM EDT [facility]ARE LAB Blood Capillary blood specimen / Unknown 02/27/2025 8:19 AM EDT 02/27/2025 8:21 AM EDT us Ludy Hill MD LAB POINT OF CARE TE ST DOCKED DEVICE UNSOLICITED RESULTS Final Result [facility] [address] [place] [address] * (ABNORMAL) POCT glucose meter (02/26/2025 7:37 PM EDT) [facility] POCT Glucose 327(H) 74 - 99 mg/dL [...] Comment 02/26/2025 7:38 PM EDT HEALTHCARE LAB Health And Wellness Advisor ID NadyaDaniela hartman 02/26/2025 7:38 PM EDT [facility] Device ID [id number] 02/26/2025 7:38 PM EDT [facility] Specimen Type POC Capillary 02/26/2025 7:38 PM EDT [facility] Blood Capillary blood specimen / Unknown 02/26/2025 7:37 PM EDT 02/26/2025 7:38 PM EDT Ludy Hill MD LAB POINT OF CARE TE ST DOCKED DEVICE UNSOLICITED RESULTS Final Result Performing Organization Address [facility] Co de Phone Number [facility] [address] [place] [address] * (ABNORMAL) POCT glucose meter (02/26/2025 5:16 PM EDT) [facility] POCT Glucose 208(H) 74 - 99 mg/dL [...] for testing. Comment 02/26/2025 5:18 PM EDT [facility] Health And Wellness Advisor ID Bassem Jay 02/26/2025 5:18 PM EDT [facility] Device ID [id number] 02/26/2025 5:18 PM EDT HEALTHCARE LAB Specimen Type POC Capillary 02/26/2025 5:18 PM EDT [facility]ARE LAB Blood Capillary blood specimen / Unknown 02/26/2025 5:16 PM EDT 02/26/2025 5:18 PM EDT us Ludy Hill MD LAB POINT OF CARE TE ST DOCKED DEVICE UNSOLICITED RESULTS Final Result Performing Organization Address City/[facility] Co de Phone Number [facility]ARE [facility] [address] [place] [address] * (ABNORMAL) POCT glucose meter (02/26/2025 1:08 PM EDT) [facility] POCT Glucose 223(H) 74 - 99 mg/dL 02/26/2025 1:09 PM EDT [facility] Comment:Accuracy [...] for testing. Comment 02/26/2025 1:09 PM EDT [facility] Health And Wellness Advisor ID Bassem Jay 02/26/2025 1:09 PM EDT HEALTHCARE LAB Device ID [id number] 02/26/2025 1:09 PM EDT [facility]ARE LAB Specimen Type POC Capillary 02/26/2025 1:09 PM EDT [facility] Blood Capillary blood specimen / Unknown 02/26/2025 1:08 PM EDT 02/26/2025 1:09 PM EDT us Ludy Hill MD LAB POINT OF CARE TE ST DOCKED DEVICE UNSOLICITED RESULTS Final Result Performing Organization Address City/[facility] Co de Phone Number [facility] [address] [place] [address] * (ABNORMAL) POCT glucose meter (02/26/2025 9:45 [...] for testing. Comment 02/26/2025 9:46 AM EDT HEALTHCARE LAB Health And Wellness Advisor ID Bassem Jay 02/26/2025 9:46 AM EDT [facility] Device ID [id number] 02/26/2025 9:46 AM EDT HEALTHCARE LAB Specimen Type POC Capillary 02/26/2025 9:46 AM EDT [facility] Blood Capillary blood specimen / Unknown 02/26/2025 9:45 AM EDT 02/26/2025 9:46 AM EDT Ludy Hill MD LAB POINT OF CARE TE ST DOCKED DEVICE UNSOLICITED RESULTS Final Result Performing Organization Address City/State/[facility] Co de Phone Number [facility]ARE LAB [address] [place] [address] * (ABNORMAL) Hemogram (CBC) (02/26/2025 4:51 AM EDT) WBC Count 7.59 3.70 - 10.30 10*3/uL LAB HEMATOLOGY METHOD 02/26/2025 5:25 AM EDT [facility] RBC Count 4.00 3.90 - 5.20 10*6/uL LAB HEMATOLOGY METHOD 02/26/2025 5:25 AM EDT [facility] HGB 10.3(L) 11.2 - 15.7 g/dL LAB HEMATOLOGY METHOD 02/26/2025 5:25 AM EDT [facility] HCT 32.3(L) 34.0 - 45.0 % LAB HEMATOLOGY METHOD 02/26/2025 5:25 AM EDT [facility] Platelet Count 375(H) 155 - 369 10*3/uL LAB HEMATOLOGY METHOD 02/26/2025 5:25 AM EDT [facility] MCV 81 79 - 98 fL LAB HEMATOLOGY METHOD 02/26/2025 5:25 AM EDT [facility] MCH 25.8(L) 26.0 - 32.0 pg LAB HEMATOLOGY METHOD 02/26/2025 5:25 AM EDT [facility] MCHC 31.9 30.7 - 35.5 g/dL LAB HEMATOLOGY METHOD 02/26/2025 5:25 AM EDT [facility] RDW 15.5(H) 11.5 - 14.5 % LAB HEMATOLOGY METHOD 02/26/2025 5:25 AM EDT [facility] MPV 8.9 8.8 - 12.5 fL LAB HEMATOLOGY METHOD 02/26/2025 5:25 AM EDT [facility] nRBC 0.0 <=0.0 per 100 WBCs LAB HEMATOLOGY METHOD 02/26/2025 5:25 AM EDT [facility] Blood Venous blood specimen / Unknown Venipuncture / Unknown 02/26/2025 4:51 AM EDT 02/26/2025 5:12 AM EDT us Ludy Hill MD LAB BLOOD ORDERABLES Final Resul t Performing Organization Address City/[facility]/ZIP Co de Phone Number [facility] [address] [place] [address] * (ABNORMAL) Magnesium, Plasma (02/26/2025 4:51 AM EDT) Magnesium, Plasma 1.7(L) 1.9 - 2.4 mg/dL 02/26/2025 5:54 AM EDT [facility] Blood Venous blood specimen / Unknown Venipuncture / Unknown 02/26/2025 4:51 AM EDT 02/26/2025 5:13 AM EDT us Ludy Hill MD LAB BLOOD ORDERABLES Final Resul t [facility] [address] [place] [address] * (ABNORMAL) Renal function panel (02/26/2025 4:51 AM EDT) Glucose, Plasma 156(H) 74 - 99 mg/dL 02/26/2025 5:54 AM EDT [facility] BUN, Plasma 26(H) 8 - 23 mg/dL 02/26/2025 5:54 AM EDT [facility] Creatinine, Plasma 1.62(H) 0.60 - 1.10 mg/dL 02/26/2025 5:54 AM EDT [facility] BUN/Creatinine Ratio 16 02/26/2025 5:54 AM EDT [facility] Sodium, Plasma 133(L) 136 - 145 mmol/L 02/26/2025 5:54 AM EDT [facility] Potassium, Plasma 4.2 3.6 - 4.9 mmol/L 02/26/2025 5:54 AM EDT [facility] Chloride, Plasma 96(L) 97 - 107 mmol/L 02/26/2025 5:54 AM EDT [facility] CO2, Plasma 24 22 - 29 mmol/L 02/26/2025 5:54 AM EDT [facility] Anion Gap 13 6 - 16 mmol/L 02/26/2025 5:54 AM EDT [facility] Total Calcium, Plasma 8.9 8.9 - 10.2 mg/dL 02/26/2025 5:54 AM EDT [facility] Phosphorus, Plasma 3.8 2.5 - 4.5 mg/dL 02/26/2025 5:54 AM EDT [facility] Albumin, Plasma 3.5 3.5 - 5.2 g/dL 02/26/2025 5:54 AM EDT [facility] eGFRcr 35.1 mL/min/1.7 3m*2 02/26/2025 5:54 AM EDT [facility] Comment:Reported eGFRcr in m L/min/1.73m2 is based the CKD-EPI 2020 equation that does not use a race coefficient. Blood Venous blood specimen / Unknown Venipuncture / Unknown 02/26/2025 4:51 AM EDT 02/26/2025 5:13 AM EDT us Ludy Hill MD LAB BLOOD ORDERABLES Final Resul t [facility] [address] [place] [address] * (ABNORMAL) POCT glucose meter (02/25/2025 8:37 PM EDT) [facility] POCT Glucose 289(H) 74 - 99 mg/dL [...] Comment 02/25/2025 8:39 PM EDT [facility]ALTHCARE LAB Health And Wellness Advisor ID Daniela Mcbride 02/25/2025 8:39 PM EDT HEALTHCARE LAB Device ID [id number] 02/25/2025 8:39 PM EDT [facility]ALTH[facility]ARE LAB Specimen Type POC Capillary 02/25/2025 8:39 PM EDT [facility] Blood Capillary blood specimen / Unknown 02/25/2025 8:37 PM EDT 02/25/2025 8:39 PM EDT us Ludy Hill MD LAB POINT OF CARE TE ST DOCKED DEVICE UNSOLICITED RESULTS Final Result Performing Organization Address City/State/[facility] Co de Phone Number HEALTHCARE LAB [address] [place] [address] * ECG Adult (02/25/2025 6:38 PM EDT) Pathologist [facility] EKG DIAGNOSIS CLASS Abnormal MUSE ECG Ventricular Rate 68 BPM MUSE ECG Atrial Rate 68 BPM MUSE ECG NM Interval 198 ms MUSE ECG QRSD Interval 136 ms MUSE ECG QT Interval 450 ms MUSE ECG QTC Interval 478 ms MUSE ECG P [place] 71 degrees MUSE ECG R [place] 265 degrees MUSE ECG T Wave [place] 50 degrees MUSE ECG Diagnosis Sinus rhythm with marked sinus arrhythmia MUSE ECG Diagnosis Right bundle branch block MUSE ECG Diagnosis Abnormal ECG MUSE ECG Diagnosis MUSE ECG Diagnosis Confirmed by Karly Gracia ([id number]) on 02/26/2025 3:20:41 PM MUSE ECG 02/25/2025 6:38 PM EDT 02/26/2025 3:20 PM EDT Ludy Hill MD ECG ORDERABLES Final Result Performing Organization Address City/[facility]/ZIP Co de Phone Number MUSE ECG * [...] for testing. Comment 02/25/2025 5:30 PM EDT [facility] Health And Wellness Advisor ID Bassem Jay 02/25/2025 5:30 PM EDT [facility] Device ID [id number] 02/25/2025 5:30 PM EDT [facility] Specimen Type POC Capillary 02/25/2025 5:30 PM EDT [facility] Blood Capillary blood specimen / Unknown 02/25/2025 5:28 PM EDT 02/25/2025 5:30 PM EDT Ludy Hill MD LAB POINT OF CARE TE ST DOCKED DEVICE UNSOLICITED RESULTS Final Result Performing Organization Address City/[facility] Co de Phone Number [facility] [address] [place] [address] * (ABNORMAL) POCT glucose meter (02/25/2025 1:08 [...] 02/25/2025 1:09 PM EDT [facility] Health And Wellness Advisor ID Bassem Jay 02/25/2025 1:09 PM EDT HEALTHCARE LAB Device ID [id number] 02/25/2025 1:09 PM EDT HEALTHCARE LAB Specimen Type POC Capillary 02/25/2025 1:09 PM EDT [facility] Blood Capillary blood specimen / Unknown 02/25/2025 1:08 PM EDT 02/25/2025 1:09 PM EDT Ludy Hill MD LAB POINT OF CARE TE ST DOCKED DEVICE UNSOLICITED RESULTS Final Result Performing Organization Address City/[facility]/ZIP Co de Phone Number [facility]ARE [facility] [address] [place] [id number] * ECG Adult (02/25/2025 12:27 PM EDT) EKG DIAGNOSIS CLASS Abnormal MUSE ECG Ventricular Rate 79 BPM MUSE ECG Atrial Rate 79 BPM MUSE ECG NM Interval 184 ms MUSE ECG QRSD Interval 134 ms MUSE ECG QT Interval 414 ms MUSE ECG QTC Interval 474 ms MUSE ECG R [place] 229 degrees MUSE ECG T Wave [place] 59 degrees MUSE ECG Diagnosis Sinus rhythm with premature supraventricular complexes MUSE ECG Diagnosis Right bundle branch block MUSE ECG Diagnosis Abnormal ECG MUSE ECG Diagnosis MUSE ECG Diagnosis Confirmed by Bert Pierre ([id number]) on 02/25/2025 2:37:14 PM MUSE ECG 02/25/2025 12:2 7 PM EDT 02/25/2025 2:37 PM EDT Ludy Hill MD ECG ORDERABLES Final Result MUSE ECG * (ABNORMAL) POCT glucose meter (02/25/2025 8:21 AM EDT) Pathologist [facility] POCT Glucose 128(H) 74 - 99 mg/dL [...] Comment 02/25/2025 8:22 AM EDT [facility] Health And Wellness Advisor ID Bassem Jay 02/25/2025 8:22 AM EDT [facility]ALTH[facility]ARE [facility] Device ID [id number] 02/25/2025 8:22 AM EDT [facility]ALTH[facility]ARE [facility] Specimen Type POC Capillary 02/25/2025 8:22 AM EDT [facility] Blood Capillary blood specimen / Unknown 02/25/2025 8:21 AM EDT 02/25/2025 8:22 AM EDT us Luda Ralph MD LAB POINT OF CARE TE ST DOCKED DEVICE UNSOLICITED RESULTS Final Result Performing Organization Address City/[facility] Co de Phone Number HEALTHCARE LAB [address] [place] [address] * (ABNORMAL) Cystatin C (02/25/2025 1:36 AM EDT) Cystatin C 2.37(H) 0.61 - 0.95 mg/L 02/25/2025 2:27 AM EDT [facility] Blood Venous blood specimen / Unknown Venipuncture / Unknown 02/25/2025 1:36 AM EDT 02/25/2025 1:57 AM EDT us Luda Ralph MD LAB BLOOD ORDERABLES Final R esult [facility] [address] [place] [address] * (ABNORMAL) Basic Metabolic Panel, Plasma (02/25/2025 1:36 AM EDT) Glucose, Plasma 95 74 - 99 mg/dL 02/25/2025 2:27 AM EDT [facility] [facility] BUN, Plasma 34(H) 8 - 23 mg/dL 02/25/2025 2:27 AM EDT [facility] Creatinine, Plasma 1.62(H) 0.60 - 1.10 mg/dL 02/25/2025 2:27 AM EDT [facility] BUN/Creatinine Ratio 21 02/25/2025 2:27 AM EDT [facility] Sodium, Plasma 134(L) 136 - 145 mmol/L 02/25/2025 2:27 AM EDT [facility] Potassium, Plasma 3.9 3.6 - 4.9 mmol/L 02/25/2025 2:27 AM EDT [facility] Chloride, Plasma 97 97 - 107 mmol/L 02/25/2025 2:27 AM EDT [facility] CO2, Plasma 23 22 - 29 mmol/L 02/25/2025 2:27 AM EDT [facility] Anion Gap 14 6 - 16 mmol/L 02/25/2025 2:27 AM EDT [facility] Total Calcium, Plasma 8.9 8.9 - 10.2 mg/dL 02/25/2025 2:27 AM EDT [facility] eGFRcr 35.1 mL/min/1.7 3m*2 02/25/2025 2:27 AM EDT [facility] Comment:Reported eGFRcr in m L/min/1.73m2 is based the CKD-EPI 2020 equation that does not use a race coefficient. Blood Venous blood specimen / Unknown Venipuncture / Unknown 02/25/2025 1:36 AM EDT 02/25/2025 1:57 AM EDT us Luda Ralph MD LAB BLOOD ORDERABLES Final R esult [facility] [address] [place] [address] * (ABNORMAL) POCT glucose meter (02/24/2025 8:21 PM EDT) POCT Glucose 149(H) 74 - 99 mg/dL 02/24/2025 8:22 PM EDT [facility] Comment:Accuracy of a glucos e result [...] Comment 02/24/2025 8:22 PM EDT [facility] Health And Wellness Advisor ID Daniela Mcbride 02/24/2025 8:22 PM EDT [facility] LAB Device ID [id number] 02/24/2025 8:22 PM EDT [facility] Specimen Type POC Capillary 02/24/2025 8:22 PM EDT [facility] Blood Capillary blood specimen / Unknown 02/24/2025 8:21 PM EDT 02/24/2025 8:22 PM EDT us Luda Ralph MD LAB POINT OF CARE TE ST DOCKED DEVICE UNSOLICITED RESULTS Final Result Performing Organization Address City/[facility] Co de Phone Number [facility] [address] [place] [address] * POCT glucose meter (02/24/2025 5:55 PM EDT) Pathologist [facility] POCT Glucose 93 74 - 99 mg/dL [...] Comment 02/24/2025 5:56 PM EDT [facility] LAB Health And Wellness Advisor ID Delroy Bernal 02/24/2025 5:56 PM EDT HE[facility]ARE LAB Device ID [id number] 02/24/2025 5:56 PM EDT [facility] Specimen Type POC Capillary 02/24/2025 5:56 PM EDT [facility] Blood Capillary blood specimen / Unknown 02/24/2025 5:55 PM EDT 02/24/2025 5:56 PM EDT us Luda Ralph MD LAB POINT OF CARE TE ST DOCKED DEVICE UNSOLICITED RESULTS Final Result Performing Organization Address City/[facility]/ZIP Co de Phone Number [facility] [address] [place] [address] * (ABNORMAL) POCT glucose meter (02/24/2025 11:26 [...] Comment 02/24/2025 11:27 AM EDT [facility] Health And Wellness Advisor ID Delroy Bernal 02/24/2025 11:27 AM EDT [facility] LAB Device ID [id number] 02/24/2025 11:27 AM EDT [facility] LAB Specimen Type POC Capillary 02/24/2025 11:27 AM EDT [facility] Blood Capillary blood specimen / Unknown 02/24/2025 11:26 AM EDT 02/24/2025 11:27 AM EDT Luda Ralph MD LAB POINT OF CARE TE ST DOCKED DEVICE UNSOLICITED RESULTS Final Result [facility] [address] [place] [address] * NM CRITICAL CARE, E/M 30-74 MINUTES (02/24/2025 7:08 [...] POCT glucose meter (02/24/2025 5:20 AM EDT) POCT Glucose 180(H) 74 - 99 mg/dL [...] for testing. Comment 02/24/2025 5:22 AM EDT [facility] Health And Wellness Advisor ID Daniela Mcbride 02/24/2025 5:22 AM EDT [facility] Device ID [id number] 02/24/2025 5:22 AM EDT [facility] Specimen Type POC Capillary 02/24/2025 5:22 AM EDT [facility] Blood Capillary blood specimen / Unknown 02/24/2025 5:20 AM EDT 02/24/2025 5:22 AM EDT us Luda Ralph MD LAB POINT OF CARE TE ST DOCKED DEVICE UNSOLICITED RESULTS Final Result [facility] [address] [place] [id number] * (ABNORMAL) Cystatin C (02/24/2025 1:01 AM EDT) Pathologist [facility] Cystatin C 2.5(H) 0.61 - 0.95 mg/L 02/24/2025 10:16 AM EDT [facility] Blood Venous blood specimen / Unknown Venipuncture / Unknown 02/24/2025 1:01 AM EDT 02/24/2025 1:06 AM EDT us Luda Ralph MD LAB BLOOD ORDERABLES Final R esult [facility] [address] [place] [address] * (ABNORMAL) CBC and Differential (02/24/2025 1:01 AM EDT) WBC Count 9.39 3.70 - 10.30 10*3/uL LAB HEMATOLOGY METHOD 02/24/2025 1:16 AM EDT [facility] RBC Count 3.53(L) 3.90 - 5.20 10*6/uL LAB HEMATOLOGY METHOD 02/24/2025 1:16 AM EDT [facility] HGB 9.1(L) 11.2 - 15.7 g/dL LAB HEMATOLOGY METHOD 02/24/2025 1:16 AM EDT [facility] HCT 28.3(L) 34.0 - 45.0 % LAB HEMATOLOGY METHOD 02/24/2025 1:16 AM EDT [facility] Platelet Count 315 155 - 369 10*3/uL LAB HEMATOLOGY METHOD 02/24/2025 1:16 AM EDT [facility] MCV 80 79 - 98 fL LAB HEMATOLOGY METHOD 02/24/2025 1:16 AM EDT [facility] MCH 25.8(L) 26.0 - 32.0 pg LAB HEMATOLOGY METHOD 02/24/2025 1:16 AM EDT [facility] MCHC 32.2 30.7 - 35.5 g/dL LAB HEMATOLOGY METHOD 02/24/2025 1:16 AM EDT [facility] RDW 15.2(H) 11.5 - 14.5 % LAB HEMATOLOGY METHOD 02/24/2025 1:16 AM EDT [facility] MPV 9.3 8.8 - 12.5 fL LAB HEMATOLOGY METHOD 02/24/2025 1:16 AM EDT [facility] nRBC 0.0 <=0.0 per 100 WBCs LAB HEMATOLOGY METHOD 02/24/2025 1:16 AM EDT [facility] Differential Type Automated LAB HEMATOLOGY METHOD 02/24/2025 1:16 AM EDT [facility] Neutrophils % 71 % LAB HEMATOLOGY METHOD 02/24/2025 1:16 AM EDT [facility] Lymphocytes % 15 % LAB HEMATOLOGY METHOD 02/24/2025 1:16 AM EDT [facility] Monocytes % 13 % LAB HEMATOLOGY METHOD 02/24/2025 1:16 AM EDT [facility] Eosinophils % 0 % LAB HEMATOLOGY METHOD 02/24/2025 1:16 AM EDT [facility] Basophils % 0 % LAB HEMATOLOGY METHOD 02/24/2025 1:16 AM EDT [facility] Immature Granulocytes % 1 % LAB HEMATOLOGY METHOD 02/24/2025 1:16 AM EDT [facility] Neutrophils Absolute 6.64(H) 1.60 - 6.10 10*3/uL LAB HEMATOLOGY METHOD 02/24/2025 1:16 AM EDT [facility] Lymphocytes Absolute 1.40 1.20 - 3.90 10*3/uL LAB HEMATOLOGY METHOD 02/24/2025 1:16 AM EDT [facility] Monocytes Absolute 1.25(H) 0.30 - 0.90 10*3/uL LAB HEMATOLOGY METHOD 02/24/2025 1:16 AM EDT [facility] Eosinophils Absolute 0.02 0.00 - 0.50 10*3/uL LAB HEMATOLOGY METHOD 02/24/2025 1:16 AM EDT [facility] Basophils Absolute 0.02 0.00 - 0.10 10*3/uL LAB HEMATOLOGY METHOD 02/24/2025 1:16 AM EDT [facility] Immature Granulocytes Absolute 0.06 0.00 - 0.06 10*3/uL LAB HEMATOLOGY METHOD 02/24/2025 1:16 AM EDT [facility] Blood Venous blood specimen / Unknown Venipuncture / Unknown 02/24/2025 1:01 AM EDT 02/24/2025 1:06 AM EDT [facility] - 02/24/2025 1:16 AM EDT Therapeutic decision making should be based on absolute values, rather than percentages. us Luda Ralph MD LAB BLOOD ORDERABLES Final R esult [facility] [address] [place] [address] * (ABNORMAL) Comprehensive metabolic panel (02/24/2025 1:01 AM EDT) Glucose, Plasma 152(H) 74 - 99 mg/dL 02/24/2025 1:44 AM EDT [facility] BUN, Plasma 40(H) 8 - 23 mg/dL 02/24/2025 1:44 AM EDT [facility] Creatinine, Plasma 2.04(H) 0.60 - 1.10 mg/dL 02/24/2025 1:44 AM EDT [facility] BUN/Creatinine Ratio 20 02/24/2025 1:44 AM EDT [facility] Sodium, Plasma 132(L) 136 - 145 mmol/L 02/24/2025 1:44 AM EDT [facility] Potassium, Plasma 4.9 3.6 - 4.9 mmol/L 02/24/2025 1:44 AM EDT [facility] Chloride, Plasma 97 97 - 107 mmol/L 02/24/2025 1:44 AM EDT [facility] CO2, Plasma 22 22 - 29 mmol/L 02/24/2025 1:44 AM EDT [facility] Anion Gap 13 6 - 16 mmol/L 02/24/2025 1:44 AM EDT [facility] Total Calcium, Plasma 8.6(L) 8.9 - 10.2 mg/dL 02/24/2025 1:44 AM EDT [facility] Total Protein 6.9 6.3 - 7.9 g/dL 02/24/2025 1:44 AM EDT [facility] Albumin, Plasma 3.3(L) 3.5 - 5.2 g/dL 02/24/2025 1:44 AM EDT [facility] AST, Plasma 16 10 - 35 U/L 02/24/2025 1:44 AM EDT [facility] Comment:Hemolyzed, result ma y be falsely increased. ALT, Plasma 15 10 - 35 U/L 02/24/2025 1:44 AM EDT [facility] Alkaline Phosphatase, Plasma 105 46 - 142 U/L 02/24/2025 1:44 AM EDT [facility] Total Bilirubin, Plasma <0.2(L) 0.2 - 1.1 mg/dL 02/24/2025 1:44 AM EDT [facility] eGFRcr 26.6 mL/min/1.7 3m*2 02/24/2025 1:44 AM EDT [facility] Comment:Reported eGFRcr in m L/min/1.73m2 is based the CKD-EPI 2020 equation that does not use a race coefficient. Blood Venous blood specimen / Unknown Venipuncture / Unknown 02/24/2025 1:01 AM EDT 02/24/2025 1:06 AM EDT us Luda Ralph MD LAB BLOOD ORDERABLES Final R esult Performing Organization Address City/[facility]/ZIP Co de Phone Number [facility] [address] [place] [address] * (ABNORMAL) Ionized calcium, whole blood (02/24/2025 1:01 AM EDT) Ionized Calcium, Whole Blood 4.4(L) 4.6 - 5.1 mg/dL LAB HEMATOLOGY METHOD 02/24/2025 1:14 AM EDT [facility] Blood Venous blood specimen / Unknown Venipuncture / Unknown 02/24/2025 1:01 AM EDT 02/24/2025 1:13 AM EDT us Luda Ralph MD LAB BLOOD ORDERABLES Final R esult [facility] [address] [place] [address] * Phosphorus (02/24/2025 1:01 AM EDT) Phosphorus, Plasma 3.0 2.5 - 4.5 mg/dL 02/24/2025 1:44 AM EDT [facility] Blood Venous blood specimen / Unknown Venipuncture / Unknown 02/24/2025 1:01 AM EDT 02/24/2025 1:06 AM EDT Luda Ralph MD LAB BLOOD ORDERABLES Final R esult Performing Organization Address City/[facility]/ZIP Co de Phone Number [facility] [address] [place] [address] * Magnesium, Plasma (02/24/2025 1:01 AM EDT) Magnesium, Plasma 2.2 1.9 - 2.4 mg/dL 02/24/2025 1:44 AM EDT [facility] Blood Venous blood specimen / Unknown Venipuncture / Unknown 02/24/2025 1:01 AM EDT 02/24/2025 1:06 AM EDT Luda Ralph MD LAB BLOOD ORDERABLES Final [facility] Performing Organization Address [facility]/ZIP Co de Phone Number [facility] [address] [place] [address] * (ABNORMAL) Procalcitonin (02/24/2025 1:01 AM EDT) Procalcitonin, Plasma 0.12(H) <0.09 ng/mL 02/24/2025 1:44 AM EDT [facility] Blood Venous blood specimen / Unknown Venipuncture / Unknown 02/24/2025 1:01 AM EDT 02/24/2025 1:06 AM EDT Narrative [facility] - 02/24/2025 1:44 AM EDT [...] predict 28 day mortality risk. Please consult [email or web address]-ipk-jescqtvsyk.[email or web address] for more information. Test performed at [facility]. us Luda Ralph MD LAB BLOOD ORDERABLES Final R esult [facility] [address] [place] [address] * (ABNORMAL) Blood gas panel, venous (02/24/2025 1:01 AM EDT) pH, Venous 7.43 7.32 - 7.43 LAB HEMATOLOGY METHOD 02/24/2025 1:19 AM EDT [facility] pCO2, Venous 40 37 - 52 mmHg LAB HEMATOLOGY METHOD 02/24/2025 1:19 AM EDT [facility] pO2, Venous 143(H) 25 - 40 mmHg LAB HEMATOLOGY METHOD 02/24/2025 1:19 AM EDT [facility] SO2, Measured, Venous 98(H) 65 - 80 % LAB HEMATOLOGY METHOD 02/24/2025 1:19 AM EDT [facility] Base Excess, Venous 1.9 -2.0 - 3.0 mmol/L LAB HEMATOLOGY METHOD 02/24/2025 1:19 AM EDT [facility] Bicarbonate, Calculated, Venous 27(H) 22 - 26 mmol/L LAB HEMATOLOGY METHOD 02/24/2025 1:19 AM EDT [facility] Hematocrit, Whole Blood 27.7(L) 34.0 - 45.0 % LAB HEMATOLOGY METHOD 02/24/2025 1:19 AM EDT [facility] Sodium, Whole Blood 132(L) 136 - 145 mmol/L LAB HEMATOLOGY METHOD 02/24/2025 1:19 AM EDT [facility] Potassium, Whole Blood 4.3 3.6 - 4.9 mmol/L LAB HEMATOLOGY METHOD 02/24/2025 1:19 AM EDT [facility] Chloride, Whole Blood 99 97 - 107 mmol/L LAB HEMATOLOGY METHOD 02/24/2025 1:19 AM EDT [facility] Glucose, Whole Blood 154(H) 74 - 99 mg/dL LAB HEMATOLOGY METHOD 02/24/2025 1:19 AM EDT [facility] Lactate, Venous, Whole Blood 0.9 0.5 - 2.2 mmol/L LAB HEMATOLOGY METHOD 02/24/2025 1:19 AM EDT [facility] Ionized Calcium, Whole Blood 4.2(L) 4.6 - 5.1 mg/dL LAB HEMATOLOGY METHOD 02/24/2025 1:19 AM EDT [facility] Blood Venous blood specimen / Unknown Venipuncture / Unknown 02/24/2025 1:01 AM EDT 02/24/2025 1:13 AM EDT Luda Ralph MD LAB BLOOD ORDERABLES Final R esult Performing Organization Address City/[facility]/ZIP Co de Phone Number [facility] [address] [place] [address] * (ABNORMAL) POCT glucose meter (02/24/2025 1:00 AM EDT) Pathologist [facility] POCT Glucose 169(H) 74 - 99 mg/dL 02/24/2025 1:02 AM EDT [facility] Comment:Accuracy of [...] Comment 02/24/2025 1:02 AM EDT HEALTHCARE LAB Health And Wellness Advisor ID Daniela Mcbride 02/24/2025 1:02 AM EDT HEALTHCARE LAB Device ID [id number] 02/24/2025 1:02 AM EDT HEALTH[facility]ARE LAB Specimen Type POC Capillary 02/24/2025 1:02 AM EDT [facility] Blood Capillary blood specimen / Unknown 02/24/2025 1:00 AM EDT 02/24/2025 1:02 AM EDT us Luda Ralph MD LAB POINT OF CARE TE ST DOCKED DEVICE UNSOLICITED RESULTS Final Result Performing Organization Address City/[facility] Co de Phone Number [facility]ARE [facility] [address] [place] [address] * (ABNORMAL) POCT glucose meter (02/23/2025 5:07 [...] Comment 02/23/2025 5:08 PM EDT [facility]ALTH[facility]ARE LAB Health And Wellness Advisor ID Temi Mao 02/23/2025 5:08 PM EDT HEALTH[facility]ARE LAB Device ID [id number] 02/23/2025 5:08 PM EDT [facility]ALTH[facility]ARE LAB Specimen Type POC Capillary 02/23/2025 5:08 PM EDT [facility] Blood Capillary blood specimen / Unknown 02/23/2025 5:07 PM EDT 02/23/2025 5:08 PM EDT us Luda Ralph MD LAB POINT OF CARE TE ST DOCKED DEVICE UNSOLICITED RESULTS Final Result Performing Organization Address City/[facility] Co de Phone Number [facility] [address] [place] [address] * Sodium, urine, random (02/23/2025 3:12 PM EDT) Sodium, Urine 31 mmol/L 02/23/2025 4:03 PM EDT [facility] Urine Urine specimen from urinary conduit / Unknown Non-blood Collection / Unknown 02/23/2025 3:12 PM EDT 02/23/2025 3:24 PM EDT us Luda Ralph MD LAB URINE ORDERABLES Final R esult [facility] [address] [place] [address] * Osmolality, urine (02/23/2025 3:12 PM EDT) Osmolality, Urine 408 50 - 1,200 mOsm/kg 02/23/2025 3:59 PM EDT [facility] Urine Urine specimen from urinary conduit / Unknown Non-blood Collection / Unknown 02/23/2025 3:12 PM EDT 02/23/2025 3:23 PM EDT us Luda Ralph MD LAB URINE ORDERABLES Final R esult Performing Organization Address [facility] Co de Phone Number [facility] [address] [place] [address] * Osmolality (02/23/2025 3:04 PM EDT) Osmolality, Serum 289 280 - 301 mOsm/Kg 02/23/2025 4:11 PM EDT [facility] Blood Venous blood specimen / Unknown Venipuncture / Unknown 02/23/2025 3:04 PM EDT 02/23/2025 3:13 PM EDT us Luda Ralph MD LAB BLOOD ORDERABLES Final R esult Performing Organization Address [facility] de Phone Number [facility] [address] [place] [address] * (ABNORMAL) Cystatin C (02/23/2025 3:04 PM EDT) Cystatin C 2.32(H) 0.61 - 0.95 mg/L 02/23/2025 3:44 PM EDT [facility] Blood Venous blood specimen / Unknown Venipuncture / Unknown 02/23/2025 3:04 PM EDT 02/23/2025 3:13 PM EDT us Luda Ralph MD LAB BLOOD ORDERABLES Final R esult Performing Organization Address [facility] Co de Phone Number [facility] [address] [place] [address] * (ABNORMAL) Sodium (02/23/2025 3:04 PM EDT) Sodium, Plasma 129(L) 136 - 145 mmol/L 02/23/2025 3:44 PM EDT [facility] Blood Venous blood specimen / Unknown Venipuncture / Unknown 02/23/2025 3:04 PM EDT 02/23/2025 3:13 PM EDT Luda Ralph MD LAB BLOOD ORDERABLES Final R esult Performing Organization Address City/[facility] Co de Phone Number [facility] [address] [place] [address] * (ABNORMAL) POCT glucose meter (02/23/2025 11:43 AM EDT) POCT Glucose 222(H) 74 - 99 mg/dL [...] for testing. Comment 02/23/2025 11:44 AM EDT [facility] Health And Wellness Advisor ID WetzoldTemi 02/23/2025 11:44 AM EDT HEALTHCARE LAB Device ID [id number] 02/23/2025 11:44 AM EDT [facility] Specimen Type POC Capillary 02/23/2025 11:44 AM EDT [facility] Blood Capillary blood specimen / Unknown 02/23/2025 11:43 AM EDT 02/23/2025 11:44 AM EDT Luda Ralph MD LAB POINT OF CARE TE ST DOCKED DEVICE UNSOLICITED RESULTS Final Result Performing Organization Address City/[facility] Co de Phone Number [facility] [address] [place] [address] * Streptococcus pneumoniae and Legionella Urinary Antigen (02/23/2025 11:05 AM EDT) Legionella pneumophila serogroup 1 Antigen Result (Urine) Negative Negative 02/24/2025 7:01 AM EDT [facility] Streptococcus pneumoniae Antigen Result (Urine) Negative Negative 02/24/2025 7:01 AM EDT [facility] Urine Urine specimen obtained by clean catch procedure / Unknown Non-blood Collection / Unknown 02/23/2025 11:05 AM EDT 02/23/2025 11:16 AM EDT Luda Ralph MD LAB MICROBIOLOGY - GENERAL O RDERABLES Final Result [facility] [address] [place] [address] * NM CRITICAL CARE, E/M 30-74 MINUTES (02/23/2025 9:10 [...] Plasma 25.9 ug/mL 02/23/2025 9:20 AM EDT [facility] Blood Venous blood specimen / Unknown Venipuncture / Unknown 02/23/2025 8:34 AM EDT 02/23/2025 8:50 AM EDT Luda Ralph MD LAB BLOOD ORDERABLES Final R esult [facility] [address] [place] [address] * (ABNORMAL) Sodium (02/23/2025 8:34 AM EDT) Pathologist [facility] Sodium, Plasma 127(L) 136 - 145 mmol/L 02/23/2025 9:20 AM EDT [facility] Blood Venous blood specimen / Unknown Venipuncture / Unknown 02/23/2025 8:34 AM EDT 02/23/2025 8:50 AM EDT Luda Ralph MD LAB BLOOD ORDERABLES Final R esult Performing Organization Address City/[facility]/ZIP Co de Phone Number [facility] [address] [place] [address] * (ABNORMAL) Blood gas panel, venous (02/23/2025 8:34 AM EDT) pH, Venous 7.39 7.32 - 7.43 LAB HEMATOLOGY METHOD 02/23/2025 8:52 AM EDT [facility] pCO2, Venous 44 37 - 52 mmHg LAB HEMATOLOGY METHOD 02/23/2025 8:52 AM EDT [facility] pO2, Venous 43(H) 25 - 40 mmHg LAB HEMATOLOGY METHOD 02/23/2025 8:52 AM EDT [facility] SO2, Measured, Venous 77 65 - 80 % LAB HEMATOLOGY METHOD 02/23/2025 8:52 AM EDT [facility] Base Excess, Venous 1.6 -2.0 - 3.0 mmol/L LAB HEMATOLOGY METHOD 02/23/2025 8:52 AM EDT [facility] Bicarbonate, Calculated, Venous 27(H) 22 - 26 mmol/L LAB HEMATOLOGY METHOD 02/23/2025 8:52 AM EDT [facility] Hematocrit, Whole Blood 27.4(L) 34.0 - 45.0 % LAB HEMATOLOGY METHOD 02/23/2025 8:52 AM EDT [facility] Sodium, Whole Blood 128(L) 136 - 145 mmol/L LAB HEMATOLOGY METHOD 02/23/2025 8:52 AM EDT [facility] Potassium, Whole Blood 4.7 3.6 - 4.9 mmol/L LAB HEMATOLOGY METHOD 02/23/2025 8:52 AM EDT [facility] Chloride, Whole Blood 93(L) 97 - 107 mmol/L LAB HEMATOLOGY METHOD 02/23/2025 8:52 AM EDT [facility] Glucose, Whole Blood 242(H) 74 - 99 mg/dL LAB HEMATOLOGY METHOD 02/23/2025 8:52 AM EDT [facility] Lactate, Venous, Whole Blood 1.1 0.5 - 2.2 mmol/L LAB HEMATOLOGY METHOD 02/23/2025 8:52 AM EDT [facility] Ionized Calcium, Whole Blood 4.6 4.6 - 5.1 mg/dL LAB HEMATOLOGY METHOD 02/23/2025 8:52 AM EDT [facility] Blood Venous blood specimen / Unknown Venipuncture / Unknown 02/23/2025 8:34 AM EDT 02/23/2025 8:50 AM EDT Luda Raplh MD LAB BLOOD ORDERABLES Final R esult [facility] [address] [place] [address] * (ABNORMAL) POCT glucose meter (02/23/2025 5:13 [...] Comment 02/23/2025 5:14 AM EDT HEALTHCARE LAB Health And Wellness Advisor ID Daniela Mcbride 02/23/2025 5:14 AM EDT [facility] Device ID [id number] 02/23/2025 5:14 AM EDT HEALTHCARE LAB Specimen Type POC Capillary 02/23/2025 5:14 AM EDT [facility] Blood Capillary blood specimen / Unknown 02/23/2025 5:13 AM EDT 02/23/2025 5:14 AM EDT us Luda Ralph MD LAB POINT OF CARE TE ST DOCKED DEVICE UNSOLICITED RESULTS Final Result Performing Organization Address City/[facility]/ZIP Co de Phone Number HEALTHCARE LAB [address] [place] [address] * (ABNORMAL) POCT glucose meter (02/23/2025 2:11 AM EDT) Pathologist [facility] POCT Glucose 224(H) 74 - 99 mg/dL [...] for testing. Comment 02/23/2025 2:12 AM EDT [facility] Health And Wellness Advisor ID Daniela Mcbride 02/23/2025 2:12 AM EDT HEALTHCARE LAB Device ID [id number] 02/23/2025 2:12 AM EDT [facility] Specimen Type POC Capillary 02/23/2025 2:12 AM EDT [facility] Blood Capillary blood specimen / Unknown 02/23/2025 2:11 AM EDT 02/23/2025 2:12 AM EDT us Luda Ralph MD LAB POINT OF CARE TE ST DOCKED DEVICE UNSOLICITED RESULTS Final Result Performing Organization Address City/[facility]/ZIP Co de Phone Number HEALTHCARE LAB [address] [place] [address] * (ABNORMAL) Methicillin Resistant Staphylococcus aureus (MRSA) by PCR (02/23/2025 2:05 AM EDT) [facility] Methicillin Resistant Staphylococcus aureus (MRSA) by PCR Detected( A) Not Detected 02/23/2025 4:19 AM EDT [facility] Swab Both anterior nares / Unknown Non-blood Collection / Unknown 02/23/2025 2:05 AM EDT 02/23/2025 3:06 AM EDT Narrative [facility] - 02/23/2025 4:19 AM EDT [...] MICROBIOLOGY - GENERAL O RDERABLES Final Result [facility] [address] [place] [address] * (ABNORMAL) Nasopharyngeal Respiratory Panel (02/23/2025 2:05 AM EDT) Human Rhinovirus/Ent erovirus PCR Result Detected( A) Not Detected 02/23/2025 5:07 AM EDT [facility] Swab Nasopharyngeal structure / Unknown Non-blood Collection / Unknown 02/23/2025 2:05 AM EDT 02/23/2025 3:06 AM EDT Narrative [facility] - 02/23/2025 5:07 AM EDT [...] Respiratory PCR Panel is performed using the Surflylex instrument. This test is FDA approved for use with Nasopharyngeal swabs only. This test is used for clinical purposes. It should not be regarded as investigational or for research. The [facility] Clinical Microbiology Laboratory is certified under the Clinical Laboratory Improvement Amendments of 1988 (CLIA-88) as qualified to perform high complexity clinical laboratory testing. us Luda Ralph MD LAB MICROBIOLOGY - GENERAL O RDERABLES Final Result Performing Organization Address [facility]/ZIP Co de Phone Number [facility] [address] [place] [address] * Anti Xa Level Low Molecular Weight (02/23/2025 2:04 AM EDT) Anti Xa Level Low Molecular Weight Heparin 1.12 <2.00 IU/mL LAB COAGULATION METHOD 02/23/2025 2:44 AM EDT [facility] Blood Venous blood specimen / Unknown Venipuncture / Unknown 02/23/2025 2:04 AM EDT 02/23/2025 2:24 AM EDT Narrative [facility] - 02/23/2025 2:44 AM EDT Therapeutic Range: LMWH enoxaparin 1mg/kg/dose, 12hrs - peak (3-5 hours after dose): 0.5 - 1.0 IU/mL LMWH enoxaparin 1.5mg/kg/dose, 24hrs - peak (3-5 hours after dose): 1.0 - 2.0 IU/mL LMWH enoxaparin prophylaxis: Not established us Luda Ralph MD LAB BLOOD ORDERABLES Final R esult Performing Organization Address [facility]/ZIP Co de Phone Number [facility] [address] [place] [address] * (ABNORMAL) Troponin T, High Sensitivity, 2 Hour, Plasma (02/23/2025 2:04 AM EDT) Troponin T, High Sensitivity, 2 Hour 37(H) <14 ng/L 02/23/2025 2:52 AM EDT [facility] Troponin Delta Interpretation Not Calculated 02/23/2025 2:52 AM EDT [facility] Comment:Specimen not collect ed within acceptable timeframe. Delta will not be calculated. Blood Venous blood specimen / Unknown Venipuncture / Unknown 02/23/2025 2:04 AM EDT 02/23/2025 2:24 AM EDT us Luda Ralph MD LAB BLOOD ORDERABLES Final R esult [facility] [address] [place] [address] * (ABNORMAL) Sodium (02/23/2025 2:04 AM EDT) Pathologist [facility] Sodium, Plasma 125(L) 136 - 145 mmol/L 02/23/2025 2:45 AM EDT [facility] Blood Venous blood specimen / Unknown Venipuncture / Unknown 02/23/2025 2:04 AM EDT 02/23/2025 2:24 AM EDT us Luda Ralph MD LAB BLOOD ORDERABLES Final R [facility] Performing Organization Address [facility]/ZIP Co de Phone Number [facility] [address] [place] [address] * (ABNORMAL) Blood gas panel, venous (02/23/2025 2:04 AM EDT) [facility] pH, Venous 7.39 7.32 - 7.43 LAB HEMATOLOGY METHOD 02/23/2025 2:29 AM EDT [facility] pCO2, Venous 43 37 - 52 mmHg LAB HEMATOLOGY METHOD 02/23/2025 2:29 AM EDT [facility] pO2, Venous 71(H) 25 - 40 mmHg LAB HEMATOLOGY METHOD 02/23/2025 2:29 AM EDT [facility] SO2, Measured, Venous 94(H) 65 - 80 % LAB HEMATOLOGY METHOD 02/23/2025 2:29 AM EDT [facility] Base Excess, Venous 0.7 -2.0 - 3.0 mmol/L LAB HEMATOLOGY METHOD 02/23/2025 2:29 AM EDT [facility] Bicarbonate, Calculated, Venous 26 22 - 26 mmol/L LAB HEMATOLOGY METHOD 02/23/2025 2:29 AM EDT [facility] Hematocrit, Whole Blood 26.1(L) 34.0 - 45.0 % LAB HEMATOLOGY METHOD 02/23/2025 2:29 AM EDT [facility] Sodium, Whole Blood 127(L) 136 - 145 mmol/L LAB HEMATOLOGY METHOD 02/23/2025 2:29 AM EDT [facility] Potassium, Whole Blood 4.7 3.6 - 4.9 mmol/L LAB HEMATOLOGY METHOD 02/23/2025 2:29 AM EDT [facility] Chloride, Whole Blood 93(L) 97 - 107 mmol/L LAB HEMATOLOGY METHOD 02/23/2025 2:29 AM EDT [facility] Glucose, Whole Blood 221(H) 74 - 99 mg/dL LAB HEMATOLOGY METHOD 02/23/2025 2:29 AM EDT [facility] Lactate, Venous, Whole Blood 0.9 0.5 - 2.2 mmol/L LAB HEMATOLOGY METHOD 02/23/2025 2:29 AM EDT [facility] Ionized Calcium, Whole Blood 3.7(L) 4.6 - 5.1 mg/dL LAB HEMATOLOGY METHOD 02/23/2025 2:29 AM EDT [facility] Blood Venous blood specimen / Unknown Venipuncture / Unknown 02/23/2025 2:04 AM EDT 02/23/2025 2:25 AM EDT Luda Ralph MD LAB BLOOD ORDERABLES Final R esult Performing Organization Address City/[facility]/ZIP Co de Phone Number [facility] [address] [place] [address] * Vancomycin, random (02/23/2025 12:05 AM EDT) Vancomycin, Random, Plasma <4.0 ug/mL 02/23/2025 12:44 AM EDT [facility] Blood Venous blood specimen / Unknown Venipuncture / Unknown 02/23/2025 12:05 AM EDT 02/23/2025 12:16 AM EDT Luda Ralph MD LAB BLOOD ORDERABLES Final R esult [facility] [address] [place] [address] * (ABNORMAL) Sodium (02/23/2025 12:05 AM EDT) Sodium, Plasma 127(L) 136 - 145 mmol/L 02/23/2025 12:44 AM EDT [facility] Blood Venous blood specimen / Unknown Venipuncture / Unknown 02/23/2025 12:05 AM EDT 02/23/2025 12:17 AM EDT us Luda Ralph MD LAB BLOOD ORDERABLES Final R esult [facility] [address] [place] [address] * (ABNORMAL) Blood gas panel, venous (02/23/2025 12:05 AM EDT) pH, Venous 7.33 7.32 - 7.43 LAB HEMATOLOGY METHOD 02/23/2025 12:18 AM EDT [facility] pCO2, Venous 50 37 - 52 mmHg LAB HEMATOLOGY METHOD 02/23/2025 12:18 AM EDT [facility] pO2, Venous 60(H) 25 - 40 mmHg LAB HEMATOLOGY METHOD 02/23/2025 12:18 AM EDT [facility] SO2, Measured, Venous 89(H) 65 - 80 % LAB HEMATOLOGY METHOD 02/23/2025 12:18 AM EDT [facility] Base Excess, Venous 0.3 -2.0 - 3.0 mmol/L LAB HEMATOLOGY METHOD 02/23/2025 12:18 AM EDT [facility] Bicarbonate, Calculated, Venous 27(H) 22 - 26 mmol/L LAB HEMATOLOGY METHOD 02/23/2025 12:18 AM EDT [facility] Hematocrit, Whole Blood 28.9(L) 34.0 - 45.0 % LAB HEMATOLOGY METHOD 02/23/2025 12:18 AM EDT [facility] Sodium, Whole Blood 128(L) 136 - 145 mmol/L LAB HEMATOLOGY METHOD 02/23/2025 12:18 AM EDT [facility] Potassium, Whole Blood 4.7 3.6 - 4.9 mmol/L LAB HEMATOLOGY METHOD 02/23/2025 12:18 AM EDT [facility] Chloride, Whole Blood 93(L) 97 - 107 mmol/L LAB HEMATOLOGY METHOD 02/23/2025 12:18 AM EDT [facility] Glucose, Whole Blood 177(H) 74 - 99 mg/dL LAB HEMATOLOGY METHOD 02/23/2025 12:18 AM EDT [facility] Lactate, Venous, Whole Blood 1.7 0.5 - 2.2 mmol/L LAB HEMATOLOGY METHOD 02/23/2025 12:18 AM EDT [facility] Ionized Calcium, Whole Blood 4.4(L) 4.6 - 5.1 mg/dL LAB HEMATOLOGY METHOD 02/23/2025 12:18 AM EDT [facility] Blood Venous blood specimen / Unknown Venipuncture / Unknown 02/23/2025 12:05 AM EDT 02/23/2025 12:16 AM EDT us Luda Ralph MD LAB BLOOD ORDERABLES Final R esult Performing Organization Address [facility]/ZIP Co de Phone Number [facility] [address] [place] [address] * (ABNORMAL) Troponin T, High Sensitivity, 0 Hour Plasma, Reflex to 2 Hour (02/23/2025 12:05 AM EDT) Troponin T, High Sensitivity, 0 Hour 40(H) <14 ng/L 02/23/2025 12:44 AM EDT [facility] Blood Venous blood specimen / Unknown Venipuncture / Unknown 02/23/2025 12:05 AM EDT 02/23/2025 12:17 AM EDT us Luda Ralph MD LAB BLOOD ORDERABLES Final R esult Performing Organization Address City/[facility]/ZIP Co de Phone Number [facility] [address] [place] [address] * (ABNORMAL) Phosphorus, Plasma (02/23/2025 12:05 AM EDT) Phosphorus, Plasma 2.4(L) 2.5 - 4.5 mg/dL 02/23/2025 12:44 AM EDT [facility] Blood Venous blood specimen / Unknown Venipuncture / Unknown 02/23/2025 12:05 AM EDT 02/23/2025 12:17 AM EDT Bobby Parra MD LAB BLOOD ORDERABLES Final R esult Performing Organization Address City/[facility]/ZIP Co de Phone Number [facility] [address] [place] [address] * (ABNORMAL) Magnesium, Plasma (02/23/2025 12:05 AM EDT) Magnesium, Plasma 2.5(H) 1.9 - 2.4 mg/dL 02/23/2025 12:44 AM EDT [facility] Blood Venous blood specimen / Unknown Venipuncture / Unknown 02/23/2025 12:05 AM EDT 02/23/2025 12:17 AM EDT Bobby Parra MD LAB BLOOD ORDERABLES Final R esult Performing Organization Address [facility]/ZIP Co de Phone Number [facility] [address] [place] [address] * (ABNORMAL) Basic Metabolic Panel, Plasma (02/23/2025 12:05 AM EDT) Glucose, Plasma 180(H) 74 - 99 mg/dL 02/23/2025 12:44 AM EDT [facility] BUN, Plasma 42(H) 8 - 23 mg/dL 02/23/2025 12:44 AM EDT [facility] Creatinine, Plasma 2.26(H) 0.60 - 1.10 mg/dL 02/23/2025 12:44 AM EDT [facility] BUN/Creatinine Ratio 19 02/23/2025 12:44 AM EDT [facility] Sodium, Plasma 127(L) 136 - 145 mmol/L 02/23/2025 12:44 AM EDT [facility] Potassium, Plasma 4.9 3.6 - 4.9 mmol/L 02/23/2025 12:44 AM EDT [facility] Chloride, Plasma 91(L) 97 - 107 mmol/L 02/23/2025 12:44 AM EDT [facility] CO2, Plasma 23 22 - 29 mmol/L 02/23/2025 12:44 AM EDT [facility] Anion Gap 13 6 - 16 mmol/L 02/23/2025 12:44 AM EDT [facility] Total Calcium, Plasma 9.0 8.9 - 10.2 mg/dL 02/23/2025 12:44 AM EDT [facility] eGFRcr 23.5 mL/min/1.7 3m*2 02/23/2025 12:44 AM EDT [facility] Comment:Reported eGFRcr in m L/min/1.73m2 is based the CKD-EPI 2020 equation that does not use a race coefficient. Blood Venous blood specimen / Unknown Venipuncture / Unknown 02/23/2025 12:05 AM EDT 02/23/2025 12:17 AM EDT us Bobby Parra MD LAB BLOOD ORDERABLES Final R esult Performing Organization Address City/[facility]/ZIP Co de Phone Number [facility] [address] [place] [address] * (ABNORMAL) POCT glucose meter (02/23/2025 12:04 AM EDT) POCT Glucose 189(H) 74 - 99 mg/dL 02/23/2025 12:06 AM EDT [facility] Comment:Accuracy of a glucos e result [...] Comment 02/23/2025 12:06 AM EDT [facility] Health And Wellness Advisor ID Daniela Mcbride 02/23/2025 12:06 AM EDT [facility] Device ID [id number] 02/23/2025 12:06 AM EDT [facility] Specimen Type POC Capillary 02/23/2025 12:06 AM EDT [facility] Blood Capillary blood specimen / Unknown 02/23/2025 12:04 AM EDT 02/23/2025 12:06 AM EDT us Luda Ralph MD LAB POINT OF CARE TE ST DOCKED DEVICE UNSOLICITED RESULTS Final Result Performing Organization Address City/[facility]/ZIP Co de Phone Number [facility] [address] [place] [address] * (ABNORMAL) Quantitative BAL/PAL/Bronch Wash Culture and Gram StainProtected Alveolar Lavage (02/23/2025 12:00 AM EDT) Culture [id number] CFU/mL Mixed upper respiratory jesus(A) 02/24/2025 12:09 PM EDT [facility] Comment:The organism value f or this result has been updated. These results have been appended to the previously preliminary verified report. Gram Stain Result Numerous Polymorphonuclear leukocytes(A) 02/24/2025 12:09 PM EDT [facility] Gram Stain Result Numerous Gram positive cocci in pairs(A) 02/24/2025 12:09 PM EDT [facility] Gram Stain Result Moderate Gram positive cocci in clusters(A) 02/24/2025 12:09 PM EDT [facility] Gram Stain Result Moderate Gram positive rods(A) 02/24/2025 12:09 PM EDT [facility] Protected Alveolar Lavage (Protected Alveolar Lavage) 02/23/2025 12:00 AM EDT 02/23/2025 1:17 AM EDT us Luda Ralph MD LAB MICROBIOLOGY - GENERAL O RDERABLES Final Result [facility] [address] [place] [address] * ECG Adult (02/22/2025 11:57 PM EDT) EKG DIAGNOSIS CLASS Abnormal MUSE ECG Ventricular Rate 81 BPM MUSE ECG Atrial Rate 81 BPM MUSE ECG NM Interval 204 ms MUSE ECG QRSD Interval 136 ms MUSE ECG QT Interval 428 ms MUSE ECG QTC Interval 497 ms MUSE ECG P [place] 58 degrees MUSE ECG R [place] -72 degrees MUSE ECG T Wave [place] 47 degrees MUSE ECG Diagnosis Normal sinus [...] ECG ORDERABLES Final Result Performing Organization Address [facility] Co de Phone Number MUSE ECG * (ABNORMAL) Procalcitonin (02/22/2025 10:03 PM EDT) Procalcitonin, Plasma 0.21(H) <0.09 ng/mL 02/22/2025 10:48 PM EDT [facility] Blood Venous blood specimen / Unknown Venipuncture / Unknown 02/22/2025 10:03 PM EDT 02/22/2025 10:11 PM EDT Narrative [facility] - 02/22/2025 10:48 PM EDT [...] predict 28 day mortality risk. Please consult [email or web address] for more information. Test performed at [facility], [facility] Laboratory. Luda Ralph MD LAB BLOOD ORDERABLES Final R esult Performing Organization Address City/[facility]/ZIP Co de Phone Number [facility] [address] [place] [address] * (ABNORMAL) N-Terminal Probnp (02/22/2025 10:03 PM EDT) N-Terminal, PROBNP, Plasma 1,542(H) 0 - 899 pg/mL 02/22/2025 10:48 PM EDT [facility] Blood Venous blood specimen / Unknown Venipuncture / Unknown 02/22/2025 10:03 PM EDT 02/22/2025 10:11 PM EDT Bobby Parra MD LAB BLOOD ORDERABLES Final R esult Performing Organization Address [facility] Co de Phone Number [facility] [address] [place] [address] * (ABNORMAL) Multi Drug Resistance Test (02/22/2025 10:02 PM EDT) Culture Methicillin-Resist ant Staphylococcus aureus(AA) 02/24/2025 6:58 AM EDT [facility] Swab (Nares and Samantha Rectal) Non-blood Collection / Unknown 02/22/2025 10:02 PM EDT 02/22/2025 10:16 PM EDT Narrative [facility] - 02/24/2025 6:58 AM EDT This test was developed and its performance characteristics determined by the [facility]biology [facility]. Although the media is FDA-approved, it is not FDA-approved for all specimen types submitted. The FDA has determined that such clearance or approval is not necessary. This test is used for surveillance purposes. It should not be regarded as investigational or for research. The [facility]biology Laboratory is certified under the Clinical Laboratory Improvement Amendments of 1988 (CLIA-88) as qualified to perform high complexity clinical laboratory testing. Bobby Parra MD LAB MICROBIOLOGY - GENERAL O RDERABLES Final Result Performing Organization Address City/[facility] [place] [address] * Sahara auris Surveillance by PCR (02/22/2025 10:02 PM EDT) Sahara auris PCR Result Not Detected Not Detected 02/24/2025 7:03 AM EDT [facility] Swab (Axilla and Groin) Non-blood Collection / Unknown 02/22/2025 10:02 PM EDT 02/22/2025 10:16 PM EDT Narrative [facility] - 02/24/2025 7:03 AM EDT This PCR assay was developed and its performance characteristics determined by [facility] as appropriate for clinical purposes. This assay has not been cleared or approved by the FDA, but is performed in a CLIA regulated laboratory that is qualified to perform high-complexity testing. Result [facility] Bobby Parra MD LAB MICROBIOLOGY - GENERAL O RDERABLES Final Result Performing Organization Address City/[facility]/ZIP Co de Phone Number [facility] [address] [place] [address] * (ABNORMAL) Fentanyl Urine Confirm (02/22/2025 10:01 PM EDT) Fentanyl 1(H) <1 ng/mL 02/24/2025 9:18 AM EDT [facility] Norfentanyl 2(H) <2 ng/mL 02/24/2025 9:18 AM EDT [facility] Urine Urine specimen obtained by clean catch procedure / Unknown Non-blood Collection / Unknown 02/22/2025 10:01 PM EDT 02/22/2025 10:11 PM EDT Narrative [facility] - 02/24/2025 9:18 AM EDT Drug analysis is confirmed by LC-MS/MS (LC Tandem Mass Spectrometry) on Urine specimens. This test was developed and its performance characteristics determined by [facility]. It has not been cleared or approved by the FDA. The laboratory is regulated under CLIA as qualified to perform high-complexity testing. This test is used for clinical purposes. Testing is performed at the [facility], Special Chemistry Laboratory. Luda Morton MD LAB URINE ORDERABLES Final Result Performing Organization Address City/[facility]/ZIP Co de Phone Number [facility] [address] [place] [address] * SEND HECTOR MESSAGE (02/22/2025 10:01 PM EDT) Urine Urine specimen obtained by clean catch procedure / Unknown Non-blood Collection / Unknown 02/22/2025 10:01 PM EDT 02/22/2025 10:14 PM EDT Bobby Parra MD LAB URINE ORDERABLES Final R esult Performing Organization Address [facility]/ZIP Co de Phone Number [facility] [address] [place] [address] * (ABNORMAL) Urine Culture (02/22/2025 10:01 PM EDT) Culture 100 CFU/mL Normal Urogenital Jesus(A) 02/24/2025 6:58 AM EDT [facility] Urine Urine specimen obtained by clean catch procedure / Unknown Non-blood Collection / Unknown 02/22/2025 10:01 PM EDT 02/22/2025 10:14 PM EDT Bobby Parra MD LAB MICROBIOLOGY - GENERAL O RDERABLES Final Result Performing Organization Address [facility] Co de Phone Number [facility] [address] [place] [address] * Urinalysis Microscopic Examination (02/22/2025 10:01 PM EDT) Urine Urine specimen obtained by clean catch procedure / Unknown Non-blood Collection / Unknown 02/22/2025 10:01 PM EDT 02/22/2025 10:11 PM EDT Bobby Parra MD LAB URINE ORDERABLES Final R esult Performing Organization Address City/[facility] Co de Phone Number [facility] [address] [place] [address] * Urine Salmon Panel (02/22/2025 10:01 PM EDT) Extra Sent for Culture 02/23/2025 12:01 AM EDT [facility] Urine Urine specimen obtained by clean catch procedure / Unknown Non-blood Collection / Unknown 02/22/2025 10:01 PM EDT 02/22/2025 10:14 PM EDT Bobby Parra MD LAB URINE ORDERABLES Final R esult Performing Organization Address City/[facility]/ZIP Co de Phone Number [facility] [address] [place] [address] * (ABNORMAL) Urinalysis with reflex microscopic (Culture NOT Included) (02/22/2025 10:01 PM EDT) Color, Urine Red LAB URINALYSIS - AUTOMATED METHOD 02/22/2025 11:13 PM EDT [facility] Clarity, Urine Cloudy LAB URINALYSIS - AUTOMATED METHOD 02/22/2025 11:13 PM EDT [facility] Spec [place], Urine 1.010 1.005 - 1.030 LAB URINALYSIS - AUTOMATED METHOD 02/22/2025 11:13 PM EDT [facility] pH, Urine 6.5 5.0 - 8.0 LAB URINALYSIS - AUTOMATED METHOD 02/22/2025 11:13 PM EDT [facility] Protein, Urine >=300(A) Negative mg/dL LAB URINALYSIS - AUTOMATED METHOD 02/22/2025 11:13 PM EDT [facility] Glucose, Urine Negative Negative mg/dL LAB URINALYSIS - AUTOMATED METHOD 02/22/2025 11:13 PM EDT [facility] Ketones, Urine Negative Negative mg/dL LAB URINALYSIS - AUTOMATED METHOD 02/22/2025 11:13 PM EDT [facility] Blood, Urine Large(A) Negative LAB URINALYSIS - AUTOMATED METHOD 02/22/2025 11:13 PM EDT [facility] Bilirubin, Urine Small(A) Negative LAB URINALYSIS - AUTOMATED METHOD 02/22/2025 11:13 PM EDT [facility] Urobilinogen, Urine 0.2 0.2 to 1.0 mg/dL LAB URINALYSIS - AUTOMATED METHOD 02/22/2025 11:13 PM EDT [facility] Leukocytes, Urine Large(A) Negative LAB URINALYSIS - AUTOMATED METHOD 02/22/2025 11:13 PM EDT [facility] Nitrite, Urine Negative Negative LAB URINALYSIS - AUTOMATED METHOD 02/22/2025 11:13 PM EDT [facility] RBC, Urine >50(A) 0 to 3 /HPF LAB URINALYSIS - AUTOMATED METHOD 02/22/2025 11:13 PM EDT [facility] WBC, Urine >50(A) 0 to 5 /HPF LAB URINALYSIS - AUTOMATED METHOD 02/22/2025 11:13 PM EDT [facility] Squamous Epithelial Cells 0 - 2 0 to 5 /HPF LAB URINALYSIS - AUTOMATED METHOD 02/22/2025 11:13 PM EDT [facility] Hyaline Casts 0 - 2 0 to 5 /LPF LAB URINALYSIS - AUTOMATED METHOD 02/22/2025 11:13 PM EDT [facility] Bacteria, Urine Negative Negative LAB URINALYSIS - AUTOMATED METHOD 02/22/2025 11:13 PM EDT [facility] Urine Urine specimen obtained by clean catch procedure / Unknown Non-blood Collection / Unknown 02/22/2025 10:01 PM EDT 02/22/2025 10:11 PM EDT Narrative [facility] - 02/22/2025 11:13 PM EDT Urinalysis dipstick results may be inaccurate due to specimen color or an interfering substance in the specimen. us Bobby Parra MD LAB URINE ORDERABLES Final R esult [facility] [address] [place] [address] * Drug abuse screen (02/22/2025 10:01 PM EDT) Amphetamine Screen Urine Negative Cutoff: 500 ng/mL 02/23/2025 12:22 AM EDT [facility] Benzodiazepines Screen Urine Negative Cutoff: 200 ng/mL 02/23/2025 12:22 AM EDT [facility] Cannabinoid Screen Urine Negative Cutoff: 50 ng/mL 02/23/2025 12:22 AM EDT [facility] Cocaine Screen Urine Negative Cutoff: 300 ng/mL 02/23/2025 12:22 AM EDT [facility] Barbiturate Screen Urine Negative Cutoff: 200 ng/mL 02/23/2025 12:22 AM EDT [facility] Opiate Screen Urine Negative Cutoff: 300 ng/mL 02/23/2025 12:22 AM EDT [facility] Methadone Screen Urine Negative Cutoff: 300 ng/mL 02/23/2025 12:22 AM EDT [facility] Buprenorphine Screen Urine Negative Cutoff: 10 ng/mL 02/23/2025 12:22 AM EDT [facility] Fentanyl Screen Urine Presumptive positive. Confirmation by LC-MS/MS to follow. Cutoff: 1 ng/mL 02/23/2025 12:22 AM EDT [facility] Oxycodone Screen Urine Negative Cutoff: 100 ng/mL 02/23/2025 12:22 AM EDT [facility] Urine Urine specimen obtained by clean catch procedure / Unknown Non-blood Collection / Unknown 02/22/2025 10:01 PM EDT 02/22/2025 10:11 PM EDT Luda Morton MD LAB URINE ORDERABLES Final Result Performing Organization Address City/[facility]/ZIP Co de Phone Number [facility] [address] [place] [address] * (ABNORMAL) POCT glucose meter (02/22/2025 9:38 PM EDT) POCT Glucose 156(H) 74 - 99 mg/dL 02/22/2025 9:40 PM EDT [facility] Comment:Accuracy of a [...] 02/22/2025 9:40 PM EDT [facility] Health And Wellness Advisor ID Shiloh Friedman 02/23/20 25 9:40 PM EDT [facility] Device ID [id number] 02/22/2025 9:40 PM EDT [facility] Specimen Type POC Capillary 02/22/2025 9:40 PM EDT [facility] Blood Capillary blood specimen / Unknown 02/22/2025 9:38 PM EDT 02/22/2025 9:40 PM EDT Luda Ralph MD LAB POINT OF CARE TE ST DOCKED DEVICE UNSOLICITED RESULTS Final Result Performing Organization Address City/[facility]/ZIP Co de Phone Number [facility] [address] [place] [address] * (ABNORMAL) POCT arterial blood gas gem (02/22/2025 9:05 PM EDT) pH, Arterial 7.45(H) 7.31 - 7.42 02/22/2025 9:06 PM EDT [facility] pCO2, Arterial 37 35 - 48 mm Hg 02/22/2025 9:06 PM EDT [facility] pO2, Arterial 86 >80 mm Hg 02/22/2025 9:06 PM EDT [facility] SO2, Arterial 98 94 - 98 % 02/22/2025 9:06 PM EDT [facility] FIO2 60.0 % 02/22/2025 9:06 PM EDT [facility] Base Excess, Arterial 1.7 -2 - 3 mmol/L 02/22/2025 9:06 PM EDT [facility] HCO3, Arterial 25.7 22 - 26 mmol/L 02/22/2025 9:06 PM EDT [facility] Total Hemoglobin, Arterial, Whole Blood 9.1(L) 11.2 - 15.7 g/dL 02/22/2025 9:06 PM [facility] Hematocrit, Arterial 27.0(L) 34.0 - 45.0 % 02/22/2025 9:06 PM [facility] Sodium, Arterial 125(L) 136 - 145 mmol/L 02/22/2025 9:06 PM T [facility] Potassium, Arterial 4.9 3.6 - 4.9 mmol/L 02/22/2025 9:06 PM [facility] Comment:Hemolyzed, result ma y be falsely increased. Chloride, Whole Blood 95(L) 97 - 107 mmol/L 02/22/2025 9:06 PM EDT [facility] Glucose, Arterial 116(H) 74 - 99 mg/dL 02/22/2025 9:06 PM EDT [facility] Ionized Calcium, Arterial 4.8 4.6 - 5.1 mg/dL 02/22/2025 9:06 PM EDT [facility] Lactate, Arterial 0.8 0.5 - 1.6 mmol/L 02/22/2025 9:06 PM EDT [facility] Body Temperature 37.0 Celsius 02/22/2025 9:06 PM EDT [facility] pH, Temp Corrected, Arterial 7.45(H) 7.31 - 7.42 02/22/2025 9:06 PM EDT [facility] pCO2, Temp Corrected, Arterial 37 35 - 48 mm Hg 02/22/2025 9:06 PM EDT [facility] pO2, Temp Corrected, Arterial 86 >80 mm Hg 02/22/2025 9:06 PM EDT [facility] Health And Wellness Advisor ID Slim Morton 02/22/2025 9:06 PM EDT [facility] Blood, Arterial Whole blood specimen / Unknown 02/22/2025 9:05 PM EDT 02/22/2025 9:06 PM EDT Luda Ralph MD LAB POINT OF CARE TE ST DOCKED DEVICE UNSOLICITED RESULTS Final Result [facility] [address] [place] [address] * Blood Culture (Aerobic/Anaerobet Set) (02/22/2025 8:55 PM EDT) Culture No growth at day 5 02/27/2025 10:01 PM EDT [facility] Blood Structure of right hand / Unknown Venipuncture / Unknown 02/22/2025 8:55 PM EDT 02/22/2025 9:29 PM EDT Narrative [facility] - 02/27/2025 10:01 PM EDT Low blood volume submitted, results may be compromised us Luda Morton MD LAB MICROBIOLOGY - GENERAL ORDERABLES Final Result [facility] [address] [place] [address] * Ionized calcium, serum (02/22/2025 8:36 PM EDT) Ionized Calcium, Serum 4.8 4.6 - 5.3 mg/dL LAB HEMATOLOGY METHOD 02/22/2025 9:42 PM EDT [facility] Blood Venous blood specimen / Unknown Venipuncture / Unknown 02/22/2025 8:36 PM EDT 02/22/2025 8:53 PM EDT us Bobby Parra MD LAB BLOOD ORDERABLES Final R esult [facility] [address] [place] [address] * (ABNORMAL) CBC W/O Differential (02/22/2025 8:36 PM EDT) WBC Count 7.98 3.70 - 10.30 10*3/uL LAB HEMATOLOGY METHOD 02/22/2025 8:44 PM EDT [facility] RBC Count 3.52(L) 3.90 - 5.20 10*6/uL LAB HEMATOLOGY METHOD 02/22/2025 8:44 PM EDT [facility] HGB 9.2(L) 11.2 - 15.7 g/dL LAB HEMATOLOGY METHOD 02/22/2025 8:44 PM EDT [facility] HCT 28.5(L) 34.0 - 45.0 % LAB HEMATOLOGY METHOD 02/22/2025 8:44 PM EDT [facility] Platelet Count 329 155 - 369 10*3/uL LAB HEMATOLOGY METHOD 02/22/2025 8:44 PM EDT [facility] MCV 81 79 - 98 fL LAB HEMATOLOGY METHOD 02/22/2025 8:44 PM EDT [facility] MCH 26.1 26.0 - 32.0 pg LAB HEMATOLOGY METHOD 02/22/2025 8:44 PM EDT [facility] MCHC 32.3 30.7 - 35.5 g/dL LAB HEMATOLOGY METHOD 02/22/2025 8:44 PM EDT [facility] RDW 14.6(H) 11.5 - 14.5 % LAB HEMATOLOGY METHOD 02/22/2025 8:44 PM EDT [facility] MPV 9.5 8.8 - 12.5 fL LAB HEMATOLOGY METHOD 02/22/2025 8:44 PM EDT [facility] nRBC 0.0 <=0.0 per 100 WBCs LAB HEMATOLOGY METHOD 02/22/2025 8:44 PM EDT [facility] Blood Venous blood specimen / Unknown Venipuncture / Unknown 02/22/2025 8:36 PM EDT 02/22/2025 8:40 PM EDT us Bobby Parra MD LAB BLOOD ORDERABLES Final R esult [facility] [address] [place] [address] * (ABNORMAL) Blood gas, venous (02/22/2025 8:13 PM EDT) pH, Venous 7.33 7.32 - 7.43 LAB HEMATOLOGY METHOD 02/22/2025 8:17 PM EDT [facility] pCO2, Venous 49 37 - 52 mmHg LAB HEMATOLOGY METHOD 02/22/2025 8:17 PM EDT [facility] pO2, Venous 27 25 - 40 mmHg LAB HEMATOLOGY METHOD 02/22/2025 8:17 PM EDT [facility] SO2, Measured, Venous 49(L) 65 - 80 % LAB HEMATOLOGY METHOD 02/22/2025 8:17 PM EDT [facility] Base Excess, Venous -0.1 -2.0 - 3.0 mmol/L LAB HEMATOLOGY METHOD 02/22/2025 8:17 PM EDT [facility] Bicarbonate, Calculated, Venous 26 22 - 26 mmol/L LAB HEMATOLOGY METHOD 02/22/2025 8:17 PM EDT [facility] Hematocrit, Whole Blood 27.0(L) 34.0 - 45.0 % LAB HEMATOLOGY METHOD 02/22/2025 8:17 PM EDT [facility] Sodium, Whole Blood 128(L) 136 - 145 mmol/L LAB HEMATOLOGY METHOD 02/22/2025 8:17 PM EDT [facility] Potassium, Whole Blood 5.3(H) 3.6 - 4.9 mmol/L LAB HEMATOLOGY METHOD 02/22/2025 8:17 PM EDT [facility] Chloride, Whole Blood 96(L) 97 - 107 mmol/L LAB HEMATOLOGY METHOD 02/22/2025 8:17 PM EDT [facility] Glucose, Whole Blood 106(H) 74 - 99 mg/dL LAB HEMATOLOGY METHOD 02/22/2025 8:17 PM EDT [facility] Lactate, Venous, Whole Blood 1.0 0.5 - 2.2 mmol/L LAB HEMATOLOGY METHOD 02/22/2025 8:17 PM EDT [facility] Ionized Calcium, Whole Blood 4.3(L) 4.6 - 5.1 mg/dL LAB HEMATOLOGY METHOD 02/22/2025 8:17 PM EDT [facility] Blood Venous blood specimen / Unknown Venipuncture / Unknown 02/22/2025 8:13 PM EDT 02/22/2025 8:16 PM EDT Luda Morton MD LAB BLOOD ORDERABLES Final Result Performing Organization Address City/[facility] Co de Phone Number [facility] [address] [place] [address] * EKG now - STAT (adult) (02/22/2025 8:10 PM EDT) EKG DIAGNOSIS CLASS Abnormal MUSE ECG Ventricular Rate 74 BPM MUSE ECG Atrial Rate 74 BPM MUSE ECG NM Interval 200 ms MUSE ECG QRSD Interval 136 ms MUSE ECG QT Interval 434 ms MUSE ECG QTC Interval 481 ms MUSE ECG P [place] 59 degrees MUSE ECG R [place] -84 degrees MUSE ECG T Wave [place] 48 degrees MUSE ECG Diagnosis Normal sinus rhythm MUSE ECG Diagnosis Left axis deviation MUSE ECG Diagnosis Right bundle branch block MUSE ECG Diagnosis Abnormal ECG MUSE ECG Diagnosis Compared to last ECG MUSE ECG Diagnosis No significant change was found MUSE ECG Diagnosis Confirmed by Carson Multani ([id number]) on 02/23/2025 10:45:41 AM MUSE ECG 02/22/2025 8:10 PM EDT 02/23/2025 10:45 AM EDT Luda Morton MD ECG ORDERABLES Final Resul t Performing Organization Address City/[facility] Co de Phone Number MUSE ECG [...] Jin Yoder MD on 02/22/2025 7:46 PM Result [facility] Luda Morton MD IMG XR PROCEDURES Final Res ult * (ABNORMAL) Hemoglobin A1c (02/22/2025 6:41 PM EDT) Hemoglobin A1c 9.2(H) <5.7 % 02/23/2025 1:40 PM EDT [facility] Blood Venous blood specimen / Unknown Venipuncture / Unknown 02/22/2025 6:41 PM EDT 02/22/2025 6:47 PM EDT Narrative [facility] - 02/23/2025 1:40 PM EDT HA1C Interpretive Data: Diagnosis of Diabetes: Diabetic > or = 6.5% Pre-diabetic 5.7 to 6.4% Non-diabetic < or = 5.6% Glycemic Targets for Type I and Type II Diabetics: Non- Adults <7.0% Adults <6.0% Children and Adolescents <7.5% Source: [place] [employer]. Standards of medical care in diabetes,2017. Diabetes Care.2017:40 (suppl 1):S1-S135. Result [facility] Bobby Parra MD LAB BLOOD ORDERABLES Final R esult [facility] [address] [place] [address] * (ABNORMAL) BNP (02/22/2025 6:41 PM EDT) N-Terminal, PROBNP, Plasma 1,679(H) 0 - 899 pg/mL 02/22/2025 8:39 PM EDT [facility] Blood Venous blood specimen / Unknown Venipuncture / Unknown 02/22/2025 6:41 PM EDT 02/22/2025 6:47 PM EDT Result [facility] Luda Morton MD LAB BLOOD ORDERABLES Final Result Performing Organization Address City/[facility]/ZIP Co de Phone Number [facility] [address] [place] [address] * Free T4, Plasma (02/22/2025 6:41 PM EDT) Free T4, Plasma 1.3 0.8 - 1.7 ng/dL 02/22/2025 7:24 PM EDT [facility] Blood Venous blood specimen / Unknown Venipuncture / Unknown 02/22/2025 6:41 PM EDT 02/22/2025 6:47 PM EDT Luda Morton MD LAB BLOOD ORDERABLES Final Result Performing Organization Address [facility] Co de Phone Number [facility] [address] [place] [address] * Thyroid Stimulating Hormone, Plasma (02/22/2025 6:41 PM EDT) Thyroid Stimulating Hormone, Plasma 1.03 0.40 - 4.20 uIU/mL 02/22/2025 7:24 PM EDT [facility] Blood Venous blood specimen / Unknown Venipuncture / Unknown 02/22/2025 6:41 PM EDT 02/22/2025 6:47 PM EDT Luda Morton MD LAB BLOOD ORDERABLES Final Result Performing Organization Address City/[facility]/ZIP Co de Phone Number [facility] [address] [place] [address] * Ethyl Alcohol Plasma (02/22/2025 6:41 PM EDT) Ethanol Plasma <10 <10 mg/dL 02/22/2025 8:13 PM EDT [facility] Blood Venous blood specimen / Unknown Venipuncture / Unknown 02/22/2025 6:41 PM EDT 02/22/2025 8:00 PM EDT Narrative [facility] - 02/22/2025 8:13 PM EDT Enzymatic Assay: Performed on [employer]uf[employer]. us Luda Morton MD LAB BLOOD ORDERABLES Final Result [facility] [address] [place] [address] * (ABNORMAL) CBC w/diff (02/22/2025 6:41 PM EDT) WBC Count 9.69 3.70 - 10.30 10*3/uL LAB HEMATOLOGY METHOD 02/22/2025 6:54 PM EDT [facility] RBC Count 3.62(L) 3.90 - 5.20 10*6/uL LAB HEMATOLOGY METHOD 02/22/2025 6:54 PM EDT [facility] HGB 9.7(L) 11.2 - 15.7 g/dL LAB HEMATOLOGY METHOD 02/22/2025 6:54 PM EDT [facility] HCT 29.8(L) 34.0 - 45.0 % LAB HEMATOLOGY METHOD 02/22/2025 6:54 PM EDT [facility] Platelet Count 306 155 - 369 10*3/uL LAB HEMATOLOGY METHOD 02/22/2025 6:54 PM EDT [facility] MCV 82 79 - 98 fL LAB HEMATOLOGY METHOD 02/22/2025 6:54 PM EDT [facility] MCH 26.8 26.0 - 32.0 pg LAB HEMATOLOGY METHOD 02/22/2025 6:54 PM EDT [facility] MCHC 32.6 30.7 - 35.5 g/dL LAB HEMATOLOGY METHOD 02/22/2025 6:54 PM EDT [facility] RDW 14.6(H) 11.5 - 14.5 % LAB HEMATOLOGY METHOD 02/22/2025 6:54 PM EDT [facility] MPV 9.4 8.8 - 12.5 fL LAB HEMATOLOGY METHOD 02/22/2025 6:54 PM EDT [facility] nRBC 0.0 <=0.0 per 100 WBCs LAB HEMATOLOGY METHOD 02/22/2025 6:54 PM EDT [facility] Differential Type Automated LAB HEMATOLOGY METHOD 02/22/2025 6:54 PM EDT [facility] Neutrophils % 69 % LAB HEMATOLOGY METHOD 02/22/2025 6:54 PM EDT [facility] Lymphocytes % 13 % LAB HEMATOLOGY METHOD 02/22/2025 6:54 PM EDT [facility] Monocytes % 13 % LAB HEMATOLOGY METHOD 02/22/2025 6:54 PM EDT [facility] Eosinophils % 4 % LAB HEMATOLOGY METHOD 02/22/2025 6:54 PM EDT [facility] Basophils % 0 % LAB HEMATOLOGY METHOD 02/22/2025 6:54 PM EDT [facility] Immature Granulocytes % 1 % LAB HEMATOLOGY METHOD 02/22/2025 6:54 PM EDT [facility] Neutrophils Absolute 6.66(H) 1.60 - 6.10 10*3/uL LAB HEMATOLOGY METHOD 02/22/2025 6:54 PM EDT [facility] Lymphocytes Absolute 1.29 1.20 - 3.90 10*3/uL LAB HEMATOLOGY METHOD 02/22/2025 6:54 PM EDT [facility] Monocytes Absolute 1.27(H) 0.30 - 0.90 10*3/uL LAB HEMATOLOGY METHOD 02/22/2025 6:54 PM EDT [facility] Eosinophils Absolute 0.38 0.00 - 0.50 10*3/uL LAB HEMATOLOGY METHOD 02/22/2025 6:54 PM EDT [facility] Basophils Absolute 0.03 0.00 - 0.10 10*3/uL LAB HEMATOLOGY METHOD 02/22/2025 6:54 PM EDT [facility] Immature Granulocytes Absolute 0.06 0.00 - 0.06 10*3/uL LAB HEMATOLOGY METHOD 02/22/2025 6:54 PM EDT [facility] Blood Venous blood specimen / Unknown Venipuncture / Unknown 02/22/2025 6:41 PM EDT 02/22/2025 6:47 PM EDT Narrative [facility] - 02/22/2025 6:54 PM EDT Therapeutic decision making should be based on absolute values, rather than percentages. us Luda Morton MD LAB BLOOD ORDERABLES Final Result [facility] [address] [place] [address] * (ABNORMAL) CMP (02/22/2025 6:41 PM EDT) [facility] Glucose, Plasma 144(H) 74 - 99 mg/dL 02/22/2025 7:24 PM EDT [facility] BUN, Plasma 42(H) 8 - 23 mg/dL 02/22/2025 7:24 PM EDT [facility] Creatinine, Plasma 2.39(H) 0.60 - 1.10 mg/dL 02/22/2025 7:24 PM EDT [facility] BUN/Creatinine Ratio 18 02/22/2025 7:24 PM EDT [facility] Sodium, Plasma 125(L) 136 - 145 mmol/L 02/22/2025 7:24 PM EDT [facility] Potassium, Plasma 4.6 3.6 - 4.9 mmol/L 02/22/2025 7:24 PM EDT [facility] Chloride, Plasma 89(L) 97 - 107 mmol/L 02/22/2025 7:24 PM EDT [facility] CO2, Plasma 26 22 - 29 mmol/L 02/22/2025 7:24 PM EDT [facility] Anion Gap 10 6 - 16 mmol/L 02/22/2025 7:24 PM EDT [facility] Total Calcium, Plasma 9.0 8.9 - 10.2 mg/dL 02/22/2025 7:24 PM EDT [facility] Total Protein 7.3 6.3 - 7.9 g/dL 02/22/2025 7:24 PM EDT [facility] Albumin, Plasma 3.6 3.5 - 5.2 g/dL 02/22/2025 7:24 PM EDT [facility] AST, Plasma 13 10 - 35 U/L 02/22/2025 7:24 PM EDT [facility] ALT, Plasma 19 10 - 35 U/L 02/22/2025 7:24 PM EDT [facility] Alkaline Phosphatase, Plasma 144(H) 46 - 142 U/L 02/22/2025 7:24 PM EDT [facility] Total Bilirubin, Plasma <0.2(L) 0.2 - 1.1 mg/dL 02/22/2025 7:24 PM EDT [facility] eGFRcr 22.0 mL/min/1.7 3m*2 02/22/2025 7:24 PM EDT [facility] Comment:Reported eGFRcr in m L/min/1.73m2 is based the CKD-EPI 2020 equation that does not use a race coefficient. Blood Venous blood specimen / Unknown Venipuncture / Unknown 02/22/2025 6:41 PM EDT 02/22/2025 6:47 PM EDT us Luda Morton MD LAB BLOOD ORDERABLES Final Result [facility] [address] [place] [address] * (ABNORMAL) POCT venous blood gas gem (02/22/2025 6:37 PM EDT) pH, Venous 7.28(L) 7.32 - 7.43 02/22/2025 6:38 PM EDT [facility] pCO2, Venous 60(HH) 37 - 52 mm Hg 02/22/2025 6:38 PM EDT [facility] pO2, Venous 41(H) 25 - 40 mm Hg 02/22/2025 6:38 PM EDT [facility] SO2, Venous 72 65 - 80 % 02/22/2025 6:38 PM EDT [facility] Base Excess/Deficit, Venous 0.8 -2 - 3 mmol/L 02/22/2025 6:38 PM EDT [facility] HCO3, Venous 28.2(H) 22 - 26 mmol/L 02/22/2025 6:38 PM EDT [facility] Hemoglobin, Venous 9.2(L) 11.2 - 15.7 g/dL 02/22/2025 6:38 PM EDT [facility] Hematocrit, Venous 28.0(L) 34.0 - 45.0 % 02/22/2025 6:38 PM EDT [facility] Sodium, Venous 126(L) 136 - 145 mmol/L 02/22/2025 6:38 PM EDT [facility] Potassium, Venous 4.6 3.6 - 4.9 mmol/L 02/22/2025 6:38 PM EDT [facility] Comment:Hemolyzed, result ma y be falsely increased. POCT Chloride, Venous 94(L) 97 - 107 mmol/L 02/22/2025 6:38 PM EDT [facility] Glucose, Venous 139(H) 74 - 99 mg/dL 02/22/2025 6:38 PM EDT [facility] Ionized Calcium, Venous 4.9 4.6 - 5.1 mg/dL 02/22/2025 6:38 PM EDT [facility] Lactate, Venous 0.6 0.5 - 2.2 mmol/L 02/22/2025 6:38 PM EDT [facility] Body Temperature 37.0 Celsius 02/22/2025 6:38 PM EDT [facility] pH, Temp Corrected, Venous 7.28(L) 7.32 - 7.43 02/22/2025 6:38 PM EDT [facility] pCO2, Temp Corrected, Venous 60(HH) 37 - 52 mm Hg 02/22/2025 6:38 PM EDT [facility] pO2, Temp Corrected, Venous 41(H) 25 - 40 mm Hg 02/22/2025 6:38 PM EDT [facility] Health And Wellness Advisor ID Joao Jackson 02/22/2025 6:38 PM EDT [facility] Blood, Venous Whole blood specimen / Unknown 02/22/2025 6:37 PM EDT 02/22/2025 6:38 PM EDT us Generic Provider Poct LAB POINT OF CARE TEST DOCKED DEVICE UNSOLICITED RESULTS Final Result Performing Organization Address City/State/[facility] Co ks Phone Number [facility] [address] [place] [phone] * (ABNORMAL) POCT glucose meter (02/22/2025 6:17 [...] 02/22/2025 6:19 PM EDT [facility] Health And Wellness Advisor ID Tracy Vasques 02/22/2025 6:19 PM EDT [facility] Device ID [id number] 02/22/2025 6:19 PM EDT [facility] Specimen Type POC Capillary 02/22/2025 6:19 PM EDT [facility] Blood Capillary blood specimen / Unknown 02/22/2025 6:17 PM EDT 02/22/2025 6:19 PM EDT us Generic Provider Poct LAB POINT OF CARE TEST DOCKED DEVICE UNSOLICITED RESULTS Final Result Performing Organization Address City/State/[facility] Co de Phone Number [facility] [address] [place] [phone] * INTUBATION (02/22/2025 6:13 PM EDT) Narrative [...] encounter Visit Diagnoses Diagnosis Sepsis (CMS/HCC)- Primary [place] coma scale total score 9-12, at arrival [...] 40 mg, Nasogastric, Nightly, First dose on Tue02/23/25 at 2100, Until Discontinued, Routine Given 02/24/2025 [...] PRN, Starting on Tue02/24/25 at 1954, Until Tue03/02/25 at 1304, Routine, mild pain Given 02/27/2025 [...] on Tue02/24/25 at 1745, Until Discontinued, Routine Given 03/02/2025 8:22 AM EDT 1 Units Right Upper Abdomen Given 03/01/2025 6:35 PM EDT 1 Units Le ft Lower Abdomen Given 03/01/2025 1:30 PM EDT 2 Units Le ft Lower Abdomen insulin lispro (Admelog) injection - Correction - Nighttime Dose 0-3 Units, Subcutaneous, 2 times nightly (2099 & 299), First dose on Tue02/24/25 at 2100, Until [...] Nebulization, Every 6 hours PRN, Starting on 02/24/25 at 1426, Until Tue02/27/25 at 1425, Routine, [...] Gayle Light RN)175 (Given - Provider: Gayle Light, JIMI - Comment: pt asleep)2044 (Given - Provider: Gerry Ambriz) 0851 (Given - Provider: Yves Roberts)161 (Given - Provider: Gayle Light, JIMI)2109 (Given - Provider: Aleyda Holley, JIMI) 08 (Given - Provider: Gayle Light, JIMI) carvedilol (Coreg) tablet 25 mg 25 mg, Oral, 2 times daily, First dose (after last modification) on Tue02/26/25 at 2100, Until Discontinued, Routine 1240 (Given - Provider: Gayle Light RN)2044 (Given - Provider: Gerry Ambriz) 0851 (Given - Provider: Yves Roberts)2109 (Given - Provider: Aleyda Holley RN) 0823 (Given - Provider: Gayle Light RN) cefTRIAXone (Rocephin) 2 g in sodium chloride 0.9% 100 mL IVPB (vial adapter required) 2 g, Intravenous, Every 24 hours, First dose on Tue03/01/25 at 1845, Until Discontinued, Routine 183 (New Bag - Provider: Gayle Light RN) [...] Routine 1333 (Medication Applied - Provider: Gayle Light, JIMI)1336 (Medication Removed - Provider: Gayle Light RN) [...] Gayle Light RN)2110 (Given - Provider: Aleyda Holley, JIMI) 0544 (Given - Provider: Aleyda Holley, JIMI) insulin glargine-yfgn 100 UNIT/ML injection 30 Units 30 Units, Subcutaneous, Nightly, First dose (after last modification) on Tue02/27/25 at 2100, Until Discontinued, Routine 204 (Given - Provider: Gerry Ambriz) 2109 (Given - Provider: Aleyda Holley, JIMI) insulin lispro (Admelog) 100 units/mL injection - Correction - Standard Dose 0-5 Units, Subcutaneous, 3 times daily with meals, First dose on 02/24/25 at 1745, Until Discontinued, Routine 1104 (Not Given - Provider: Gayle Light RN - Reason: Patient in procedure)1354 (Given - Provider: Gayle Light RN)1754 (Given - Provider: Gayle Light, JIMI) 0852 [...] on 02/24/25 at 2100, Until Discontinued, Routine 021 (Not Given - Provider: Gerry Ambriz - Reason: Order parameters not met)2106 (Not Given - Provider: Gerry Ambriz - Reason: Order parameters not met) 246 (Not Given - Provider: Gerry Ambriz - Reason: Order parameters not met)2110 (Not Given - Provider: Aleyda Holley, JIMI - Reason: Order parameters not met) 311 (Not Given - Provider: Aleyda Holley RN - Reason: Order parameters not met) magnesium sulfate in D5W IVPB 1 g (COMPLETED) 1 g, Intravenous, Once, 1 dose, On Herm[place] 02/28/25 at 1615, Routine 1805 (New Bag - Provider: Gayle Light, JIMI) mirabegron ER (Myrbetriq) tablet 50 mg 50 [...] Discontinued, Routine 1104 (Given - Provider: Gayle Light, JIMI)2043 (Given - Provider: Gerry Ambriz) 0852 (Given - Provider: Yves Roberts)2109 (Given - Provider: Aleyda Holley, JIMI) 0824 [...] Discontinued, Routine 1102 (Given - Provider: Gayle Light, JIMI) 0850 (Given - Provider: Yves Roberts) 0823 (Given - Provider: Gayle Light RN) PRN Medication Order 02/28/2025 03/01/2025 03/02/2025 acetaminophen (Tylenol) tablet 650 mg 650 mg, Oral, Every 4 hours PRN, Starting on 02/25/25 at 2124, Until 03/02/25 at 1304, Routine, fever, mild pain, for temperature > 38.5 0823 (Given - Provider: Gayle Light, JIMI) benzocaine (Orajel) 10 % mucosal gel 1 [...] PRN, Starting on Tue02/26/25 at 1128, Until Sat 12/25 at 1304, Routine, nausea, vomiting ondansetron (Zofran) [...] Light, JIMI) 0600 (Given - Provider: Aleyda Holley, JIMI) sodium chloride 0.9 % flush 3 mL(Linked [...] documented as of this encounter Care Teams 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
--- OUTSIDE RECORDS SUMMARY | 2025-02-22 18:13 | XMS_ITS | Encounter Summary ---
Author Organization [facility] Address [address] [id number] Care Team Providers Care Rn School Name Role Phone Cayla Erazo APRN, DNP Unavailable [phone] Vignesh Pickens MD Primary Care Provider [phone] Reason for Visit * Reason Comments Altered Mental Status * Auth/Cert (Routine) Specialty Diagnoses / Procedures Referred By Contac t Referred To Contact Diagnoses Sepsis (CMS/HCC) UTI, CKD, Hyponatremia, COPD exacerbation Bobby Parra MD [address] [place] [address] Phone: tel: fax: PAV A Inpatient [address] [place] [address] Referral ID Status Reason Start Date Expiration Date Visits Re quested Visits Authorized [id number] 1 1 Encounter Details Date Type Department Care Team (Latest Contact Info) Description 02/22/2025 6:13 PM EDT - 03/02/2025 11:04 AM EDT Hospital Encounter PAV A Inpatient [address] [place] [address] Luda Morton MD [address] [place] [address] Bobby Parra MD [address] [place] [address] Luda Ralph MD [address] [place] [address] Ludy Hill MD [address] [facility] [address] [place] [address] Madonna Singleton MD [address] [place] [address] Acute respiratory failure with hypoxia [...] organism (CMS/HCC); Chronic diastolic (congestive) heart failure ([facility]/HCC); 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 Report called to JHONNY Hawkins at [facility] in [place]. All appropriate paperwork and personal belongings sent withpatient. * Lawanda [facility] - Gayle Light RN - 03/02/2025 9:03 AM EDT Images from the original note were not included. [id number] Sepsis Sepsis is a very serious condition. [...] (ICU). Last Reviewed Date: 2023 00:00:00 ?? [id number] [employer]. All rights reserved. This information is not intended as a substitute for professional medical care. Always follow your healthcare professional's instructions. * Lawanda [facility] - Gayle Light RN - 03/02/2025 9:03 AM EDT Images from the original note were not included. [id number] Discharge Instructions for Acute Kidney Injury You [...] tiredness Last Reviewed Date: 2022 00:00:00 ?? [id number] [employer]. All rights reserved. This information is not intended as a substitute for professional medical care. Always follow your healthcare professional's instructions. * Discharge Summary - Madnona Singleton MD - 03/02/2025 8:47 AM EDT Hospitalization Admit Date/Time: 02/22/2025 6:13 PM Admitting Attending: Bobby Parra Discharge Date: 03/02/25 Discharge Attending Physician: Madonna Singleton MD PCP name and Address: Vignesh Pickens MD [address] / [place] [address] Referring provider name and address: Jordan Carl MD [address] [place] [address] [place] [address] Chief Concern, Brief History of Present Illness, [...] 120 at OSH, 125 on arrival to [facility] - Serum osm wnl, [...] Your Medications These medications were sent to [facility] - Jeanette RENETTA Reid - [facility] [place] [address] fentaNYL 12 MCG/HR naloxone 4 mg/0.1 mL [...] Resolved Hospital Problems Hospital * (Principal) Sepsis ([facility]) Post Discharge Instructions [facility] Outpatient Follow-Up Future Appointments Date Time Provider Department Center 03/07/2025 10:00 AM Doug Chapman MD [facility] 03/27/2025 10:30 AM [facility] 3 USGSGSH [facility] 03/27/2025 11:50 AM [facility] DRY PASTE SUPERVISOR LABGSMOB None 03/27/2025 1:00 PM Cayla Erazo APRN, [place] [facility] 05/16/2025 8:00 AM Karly rGacia MD [facility] 06/07/2025 1:00 PM Tom Iraheta MD [...] Note Eileen May 64 y.o. female CSN: [id number] Admission: 02/22/2025 6:13 PM Primary Problem: Sepsis [...] Chair transport scheduled today at 9am To: [facility] Report: [phone] Discharge Summary fax: [phone] Escribe new meds/controls to: [facility] will remain available through discharge if needs arise. Daniela Thomas BRAZING MACHINE OPERATOR HELPER, INFORMATION MANAGEMENT OFFICER [facility] * Gayle De León RN - 03/02/2025 8:44 AM EDT Images from the original note were not included. [id number] Acute Kidney Injury: Care Instructions Overview Acute [...] this instruction, always ask your healthcare professional. Or[employer] disclaims any warranty or liability for your use of this information. ?? [id number] [employer]. * Lawanda Katerine - Gayle Light, RN - 03/02/2025 8:44 AM EDT Images from the original note were not included. [id number] Urinary Tract Infections in Women Urinary tract [...] started. Last Reviewed Date: 2023 00:00:00 ?? [id number] [employer]. All rights reserved. This information is not [...] Anthony Vaughn Discharge Facility/Level of Care Needs: 3-[facility] Facility Current Outpatient/Agency/Support Group: fpc facility Transportation [...] Anthony Vaughn Discharge Facility/Level of Care Needs: 3-[facility] Facility Current Outpatient/Agency/Support Group: fpc facility Transportation [...] Ongoing, Progressing Intervention: Promote Activity and Functional [place] Flowsheets Taken 03/01/2025 0800 by Gayle Light [...] resumed home meds continue Mirabegron HFrEF 2/2 [facility] - 11/2024 LVEF 35-40% - Current GDMT: [...] 120 at OSH, 125 on arrival to [facility] - Serum osm wnl, [...] meds today F: soft and bite sized, ROLL REPAIRER eval Code Status: Assume Full Medically Ready for Discharge: * Progress Notes - Anthony Vaughn - 03/01/2025 9:27 AM EDT Case Management Discharge Note Eileen May 64 y.o. female CSN: [id number] Admission: 02/22/2025 6:13 PM Primary Problem: Sepsis (CMS/HCC) Primary Steam Presser: Primary Caregiver: Private caregiver Assistance Available at Discharge: Current Outpatient/Agency/Support Group: fpc facility Availability of Care Givers (#Hours): 24 hours Family/Steam Presser(s) Willingness Assessed to care for patient at home: Yes Family/Steam Presser(s) Readiness Assessed to care for patient at home: Yes Housing Circumstances-Z Codes: Housing Circumstances (select all that apply): None Applicable Discharge Facility/Level of Care Needs: Discharge Facility/Level of Care Needs: 3-[facility] Facility Patient/Family Anticipated Services at Transition: Patient/Family [...] Recieved By: Pt at bedside Follow-up: [facility] [address] [place], [place] [id number] Follow up Vignesh Pickens MD [address] [id number] Follow up Discharge Transportation: Transportation Anticipated: other (see comments) ([facility]) Transportation Home at Discharge: Other(Comment) ([facility]) Has discharge transport been arranged?: Yes What day is the transport expected?: 03/01/25 What time is the transport expected?: 0900 Follow Up Transport: Transportation Needed to Follow up Appoinments: Other(Comment) ([place]) Additional Comments: Plan of care reviewed with Pt's care team; Pt is medically ready for discharge. Pt is a resident [facility] in [place]. [facility] fpg. Weekend CM to fax Pt's discharge summary to [phone], and bedside RN to call report to [phone]. Facility uses [facility] in [place]. SW met with Pt at bedside, who [...] resumed home meds continue Mirabegron HFrEF 2/2 [facility] - 11/2024 LVEF 35-40% - Current GDMT: [...] 120 at OSH, 125 on arrival to [facility] - Serum osm wnl, [...] meds today F: soft and bite sized, ROLL REPAIRER eval Code Status: Assume Full Medically Ready for Discharge: * Progress Notes - Anthony Vaughn - 02/28/2025 11:11 AM EDT Case Management Adult Progress Note Eileen May 64 y.o. female CSN: [id number] Admission: 02/22/2025 6:13 PM Primary Problem: Sepsis (CMS/HCC) Anticipated Discharge Date: TBD Has Discharge Plans Changed? No Additional Comments Plan of care reviewed with Pt's care team; Pt is not medically ready for discharge. Dental extraction planned for today. Anticipate discharge readiness tomorrow. Pt is a resident at [facility]. SW sent updated notes to Pt's facility [...] Ongoing, Progressing Flowsheets Taken 02/28/2025 0816 by Gyale Light RN Progress: improving Outcome Evaluation: continue [...] comments) Current Outpatient/Agency/Support Group: inpatient rehabilitation facility OT,PT,ROLL REPAIRER Anticipated Changes Related to Illness: inability to care for self Transportation Anticipated: medical transport Outpatient/Agency/Support Group Needs: inpatient rehabilitation facility Transportation Concerns: none Current Discharge Risk: physical impairment Concerns to be Addressed: basic needs discharge planning Readmission Within the Last 30 Days: previous discharge plan unsuccessful Patient/Family Anticipated Services at Transition: nurse outreach case manager durable medical equipment rehabilitation services Patient/Family [...] comments) Current Outpatient/Agency/Support Group: inpatient rehabilitation facility OT,PT,ROLL REPAIRER Anticipated Changes Related to Illness: inability to care for self Transportation Anticipated: medical transport Outpatient/Agency/Support Group Needs: inpatient rehabilitation facility Transportation Concerns: none Current Discharge Risk: physical impairment Concerns to be Addressed: basic needs discharge planning Readmission Within the Last 30 Days: previous discharge plan unsuccessful Patient/Family Anticipated Services at Transition: nurse outreach case manager durable medical equipment rehabilitation services Patient/Family [...] Ongoing, Progressing Intervention: Promote Activity and Functional [place] Flowsheets Taken 02/28/2025 0816 by Gayle Light [...] [facility]. Mentating well back [...] Mental status is at baseline. Results: [facility] [place] today CBC WBC ?? Hb ?? Plt [...] q72h heparin (porcine), 5,000 Units, Subcutaneous, q8h CALRI insulin glargine-yfgn, 30 Units, Subcutaneous, Nightly insulin [...] in the posterior aspect of tooth #31. Assumption wear in tooth number 8, 9 and [...] home meds - continue Mirabegron #HFrEF 2/2 [facility] - 11/2024 LVEF 35-40% - Current GDMT: [...] 120 at OSH, 125 on arrival to [facility] - Serum osm wnl, [...] meds today F: soft and bite sized, ROLL REPAIRER eval A: oxy, acetaminophen, fentanyl patch (home [...] Chuy Graham DO Internal Medicine PGY-2 Pager [phone]; Epic Chat preferred Procedures [1] [2] PRN [...] is being transferred from ICU team to [facility] Team 14 Major Active Problems: Currently active [...] home meds - continue Mirabegron #HFrEF / [facility] - 11/2024 LVEF 35-40% - Current GDMT: [...] meds today F: soft and bite sized, ROLL REPAIRER eval A: oxy, acetaminophen, fentanyl patch (home [...] 120 at OSH, 125 on arrival to [facility] - Serum osm wnl, [...] Lunch Supplement frequency: Dinner Lunch supplement: [place] Quantity for Lunch of Tony [place] Packet One Dinner supplement: Tony Fruit Punch [...] Chuy Graham DO Internal Medicine PGY-2 Pager [phone]; Epic Chat preferred * Care Plan - [...] Ongoing, Progressing Intervention: Promote Activity and Functional [place] Flowsheets (Taken 02/26/2025 1750 by Bassem Jay, [...] Ongoing, Progressing Intervention: Promote Activity and Functional [place] Flowsheets (Taken 02/26/2025 1750) Activity Assistance Provided: assistance refused education provided Self-Care Promotion: independence encouraged * Progress Notes - Eileen Ortega - 02/26/2025 11:16 AM EDT Physical Therapy Evaluation Patient Name: Eileen May Today's Date: 02/26/2025 PT Discharge Recommendations: Subacute rehab Equipment Recommended: Defer to facility History Eileen May is 64 y.o. female admitted 02/22/2025 for work-up of Sepsis ([facility]). Problem List Active Hospital Problems Diagnosis Date Noted Sepsis ([facility]) 02/22/2025 Procedures Past 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 Patient has a past medical history of Anxiety, Breast cancer, Cerebral infarction, unspecified ([facility]), COPD (chronic obstructive pulmonary disease) ([facility]), Depression, Fibromyalgia, History of falling, [...] relaxing. Participants in Care Family/Caregiver Present: No Swimming Pool Servicer: Not Applicable Presentation Oxygen Therapy: None (Room [...] session; RN aware Home Living/Set-up Home Type: snf facility Home Adaptive Equipment: Wheelchair-manual, Hospital bed [...] From: Caregiver Level of Mobility: Wheelchair/Scooter Mobility [place]: Independent wheelchair propulsion History of Falls: No ADL Performance: Needs assistance Bathing: Needs assist Upper Body Dressing: Independent Lower Body Dressing: Needs assist Grooming: Independent Toileting: Needs assist Eating: Independent Home Management Skills: Unable to perform Patient/Family Goals Return home at [facility]. Objective Pain Pt reports having some [...] change. Bed Mobility Exam: Rolling/Turning Level of [place]: Moderate assist (50% patient effort) (bilaterally) Physical/Nonphysical Assist: Verbal Cues, Minimal cues, 1 person + 1 person to manage equipment Assistive Device: Other (drawsheet) Bed Mobility Exam: Scooting/Bridging Level of [place]: Maximum assist (25% patient's effort) (to head [...] space Standardized Assessments Standardized Assessments Standardized Assessments: [facility] 6-Clicks Mobility Assessment [facility] 6-Clicks Mobility Assessment Difficulty patient has [...] female admitted 02/22/2025 for work-up of Sepsis ([facility]). Hospital Course 1. Brimhall coma scale total score 9-12, at arrival to emergency department 2. Acute cystitis without hematuria 3. Acute respiratory failure with hypercapnia 4. COPD exacerbation ([facility]) Procedures Past 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 Patient has a past medical history of Anxiety, Breast cancer, Cerebral infarction, unspecified ([facility]), COPD (chronic obstructive pulmonary disease) ([facility]), Depression, Fibromyalgia, History of falling, [...] date Participants in Care Family/Caregiver Present: No Swimming Pool Servicer: Not Applicable Presentation Oxygen Therapy: None (Room [...] treatment as tolerated Home Living/Set-Up Home Type: snf facility Home Adaptive Equipment: Wheelchair-manual, Hospital bed [...] From: Caregiver Level of Mobility: Wheelchair/Scooter Mobility [place]: Independent wheelchair propulsion History of Falls: No [...] of treatment space BED MOBILITY Level of [place] Physical/Non- physical Assist Adaptive Equipment Utilized Rolling/ [...] to rot this date. TRANSFERS Level of [place] Physical/Non- physical Assist Adaptive Equipment Utilized Sit to Stand Stand to sit Bed to Chair Toilet Transfer Shower Transfer Interventions Patient politely deferring transfer tasks this date; educated on use of amputee slingfor increased safety as patient expresses nervousness with transfer tasks. FUNCTIONAL MOBILITY Level of [place] Distance Adaptive Equipment Utilized Ambulation Comments Patient does not ambulate at baseline* ADL / Self-Care Tasks Level of [place] Adaptive Equipment Utilized Interventions Feeding Setup, Standby [...] increased patient rest/education throughout session. Standardized Assessments [facility] 6-Click Daily Activities Help from Other: Don/Doff Regular Lower Body Clothings: Total Help From Other: Bathing: A lot Help From Other: Toileting: Total Help From Other: Don/Doff Upper Body Clothings: Little Help From Other: Grooming: Little Help From Other: Eating Meals: None [facility] 6 Click - Daily Activities Score: [...] 120 at OSH, 125 on arrival to [facility] - Serum osm wnl, [...] meds today F: soft and bite sized, ROLL REPAIRER eval A: oxy, acetaminophen, fentanyl patch (home [...] Chuy Graham, DO Internal Medicine PGY-2 Pager [phone]; Epic Chat preferred Procedures [1] [2] PRN [...] -Schedule patient to follow-up on [facility]th [facility] for extraction of #15 underlocal anesthesia. -we will arrange transport to clinic from hospital bed. - Diet: Regular; NPO at midnight prior to surgery -For extraction of one tooth it is not warranted to stop current anticoagulation therapy. -Follow current recommendations of Primary team. [facility] [employer] Department of Oral & Maxillofacial Surgery [address] [place] [address] Dispo: Continue Current Level of Care Bert [...] BREAST SURGERY N/A Breast Surgery Reconstruction from [facility] BREAST SURGERY N/A Breast Surgery from [facility] CHOLECYSTECTOMY N/A Cholecystotomy from [facility] KIDNEY SURGERY N/A Kidney Surgery from [facility] KNEE SURGERY N/A Knee Surgery from [facility] MASTECTOMY N/A Breast Surgery Mastectomy from [facility] SHOULDER SURGERY Right Shoulder Surgery Right from [facility] [3] No current facility-administered medications on file [...] is unaware of what reaction. Pedi-Pre Tape Star [Wound Dressing Adhesive] Rash Wellbutrin [Bupropion] Rash Cosigned by Jin Rodriguez DDS at 02/26/2025 10:04 AM EDT Associated attestation - Jin Rodriguez DDS - 02/26/2025 10:04 AM EDT I reviewed with Dr. Bowling and agree with the plan * Progress Notes - Sarah Rand - 02/25/2025 3:11 PM EDT Case Management Adult Initial Progress Note Eileen Chayito May 64 y.o. female CSN: [id number] Admission: 02/22/2025 6:13 PM Primary Problem: Sepsis (CMS/HCC) Mobile Application Development Lead reviewed chart and spoke with patient to complete this Initial Case Management Assessment. PCP: Vignesh Pickens MD Emergency Contact: Extended Emergency Contact Information Primary Emergency Contact: Val Howell Mobile Relation: Sister Swimming Pool Servicer needed? No Insurance: Primary Visit Coverage Payer Plan Sponsor Code Group Number Group Name MEDICARE MEDICARE A & B Primary Visit Coverage Subscriber Subscriber ID Subscriber Name Subscriber BANNER Subscriber Address [id number] EILEEN MAY [id number] [address] Secondary Visit Coverage Payer Plan Sponsor Code Group Number Group Name MEDICAID-[facility] MEDICAID TRADITIONAL Secondary Visit Coverage Subscriber Subscriber ID Subscriber Name Subscriber N Subscriber Address [id number] EILEEN MAY [id number] [place] [address] Patient information: Primary Caregiver: Private caregiver Support System: Immediate family Daily Living Activities: Functional Status: Moderate assistance Living Arrangements: Assisted Type of Residence: snf facility [facility] [place] [address] Current DME: Equipment Currently Used at Home: [...] living facility Discharge Transport: Follow Up Transport: [facility] provides follow up transportation. Patient will need assistance with transportation when medically stable. Home Health / Home Infusion / Outpatient Dialysis Services: None reported. Living Will/Advance Directive/Power of Supervisor Drawing /Guardian: None reported. Sister/[place] is NOK. Additional Comments: Case Management will [...] Note Eileen May 64 y.o. female CSN: [id number] Room/Bed 121/121A Nutrition evaluation type: follow-up Reason [...] Supplemental oxygen O2 Delivery Method: Nasal cannula Brimhall Coma Scale Score: 15 Ray Scale Score: [...] 36.76 Weight Evaluation: Obese-Class 2 (BMI 35-39.9) [place] Body Weight (kg): 48.55 (adjusted for left AKA) Percent [place] Body Weight: 198 Adjusted Body Weight (kg): [...] oz) Estimated Needs: Kcal/ K-30 Kcal Provided: 5629-9300 Kcal Needs Based On: Adjusted weight (60.5 kg) Gm Protein/ Kg : 1.2-1.5 Protein Provided: 73-91 Protein Needs Based On: Adjusted weight (60.5 kg) Fluid Provided: 1 ml/kcal or per MD team Metabolic Cart Study Results: Current Nutrition Intake: Diet Supplements: None Diet Order: Adult Diet Diet Texture: Full Liquid Adult Carbohydrate Restriction: Consistent CHO 2 (7083-1660 [place], 80 g/meal) Percent Meals Eaten (%): 50% x 1 meal Diet Experience and Nutrition History: Diet Education Provided: Will monitor Pertinent home medications: ascorbic acid, calcitriol, cholecalciferol, cyanocobalamin, ferrous sulfate, insulin, loperamide, magnesium oxide, MVI, ondansetron, Percocet, pantoprazole Adventist needs: Nutrition Focused Physical Exam: Unable to Complete Exam: Patient unable to participate Physical exam performed on (date): Assessment of Malnutrition: Nutrition Problem: Inadequate oral intake related to current clinical condition as evidenced by full liquid diet. Status of Nutrition Diagnosis: Ongoing Nutrition Interventions and Recommendations: - Advance diet as appropriate per ROLL REPAIRER - CHO 2 diet - Add Boost [...] BREAST SURGERY N/A Breast Surgery Reconstruction from [facility] BREAST SURGERY N/A Breast Surgery from [facility] CHOLECYSTECTOMY N/A Cholecystotomy from [facility] KIDNEY SURGERY N/A Kidney Surgery from [facility] KNEE SURGERY N/A Knee Surgery from [facility] MASTECTOMY N/A Breast Surgery Mastectomy from [facility] SHOULDER SURGERY Right Shoulder Surgery Right from [facility] [3] atorvastatin, 40 mg, Oral, Nightly baclofen, [...] meds today - on Mirabegron #HFrEF 2/2 [facility] - 11/2024 LVEF 35-40% - Current GDMT: [...] 120 at OSH, 125 on arrival to [facility] - Serum osm wnl, [...] meds today F: full liquid carb 2, ROLL REPAIRER eval A: oxy, acetaminophen, prn dilaudid IV, [...] Chuy Graham DO Internal Medicine PGY-2 Pager [phone]; Epic Chat preferred Procedures [1] [2] PRN [...] Note Eileen May 64 y.o. female CSN: [id number] Room/Bed 121/121A Nutrition evaluation type: assessment Reason [...] 36.39 Weight Evaluation: Obese-Class 2 (BMI 35-39.9) [place] Body Weight (kg): 48.55 (adjusted for left AKA) Percent [place] Body Weight: 198 Adjusted Body Weight (kg): [...] oz) Estimated Needs: Kcal/ K-30 Kcal Provided: 9486-3328 Kcal Needs Based On: Adjusted weight (60.5 [...] loperamide, magnesium oxide, MVI, ondansetron, Percocet, pantoprazole Adventist needs: Nutrition Focused Physical Exam: Unable to Complete Exam: Weekend coverage Physical exam performed on (date): pending Assessment of Malnutrition: Nutrition Problem: Inadequate oral intake related to current clinical condition as evidenced by GCS 11, NPO diet order. Status of Nutrition Diagnosis: New Nutrition Interventions and Recommendations: PO diet advancement per ROLL REPAIRER/MD team. TF recs if warranted: Diabetisource AC [...] BREAST SURGERY N/A Breast Surgery Reconstruction from [facility] BREAST SURGERY N/A Breast Surgery from [facility] CHOLECYSTECTOMY N/A Cholecystotomy from [facility] KIDNEY SURGERY N/A Kidney Surgery from [facility] KNEE SURGERY N/A Knee Surgery from [facility] MASTECTOMY N/A Breast Surgery Mastectomy from [facility] SHOULDER SURGERY Right Shoulder Surgery Right from [facility] [3] atorvastatin, 40 mg, Nasogastric, Nightly clopidogrel, [...] limited positioning supports utilized pressure points protected iegy-we-ndhtic areas padded tubing/devices free from skin contact [...] continued concern or difficult irrigating, contact Urology carbon printer. #hypovolemic Hyponatremia, resolved - baseline Na 130-135 - Na 120 at OSH, 125 on arrival to [facility] - Serum osm wnl, [...] Ralph. Boyd Romano. Internal Medicine PGY-2 Pager [phone] Critical Care Performed by: Luda Ralph MD [...] MD Consult ordered by: Luda Ralph MD [facility] Urology Consult Note 02/23/25 Service Requesting Consultation: MICU CC: Hematuria HPI: Eileen May is a 64 y.o. female with a past medical history of CAD s/p PCI, ICM w/ LVEF 35-40%, CVA w/ residual L-sided deficits s/p ICA stents on xeralto, Left AKA, insulin dependent T2DM, HTN, HLD, prior breast cancer s/p mastectomy, COPD, bilateral hydronephrosis and neurogenic bladder who presented to [facility] ED as a transfer from [...] findings. Hospital Problem List: Principal Problem: Sepsis ([facility]) Assessment: Eileen May is a [...] need to be upsized to a 20 Nepalese catheter to allow for easier drainage. We [...] continued concern or difficult irrigating, contact Urology carbon printer. Jake Sheets MD Urology PGY-2 [1] Past [...] CKD (CMS/HCC); Chronic kidney disease, stage 3a ([facility]/HCC); Sepsis with encephalopathy without septic shock, due to unspecified organism ([facility]) Images from the original note [...] AMS with GCS 6-7 on arrival to [facility] therefore intubated for airway [...] continued concern or difficult irrigating, contact Urology carbon printer. #Hyponatremia - baseline Na 130-135 - Na 120 at OSH, 125 on arrival to [facility] PLAN: - will continue [...] Chuy Graham, DO Internal Medicine PGY-2 Pager [phone]; Epic Chat preferred Critical Care Performed by: [...] Least Restrictive Safety Strategies Flowsheets (Taken 02/22/20252235) Front End Web Designer Protection: torso covered tubing secured Diversional Activities: [...] and AMS. Patient presented to OSH from [facility] due to concern for hyponatremia, encephalopathy [...] exacerbation, given duonebs and azithromycin. Transferred to [facility] for higher level of care. On arrival to [facility] ED, patient GCS 6-7, [...] AMS with GCS 6-7 on arrival to [facility] therefore intubated for airway [...] 120 at OSH, 125 on arrival to [facility] - will continue to monitor with q4h Na HFrEF 2/2 [facility] - 11/2024 LVEF 35-40% - Current GDMT: [...] Rachel Shipman MD PGY-3, Internal Medicine Pager: [phone] Procedures [1] Family History Problem Relation Name [...] bag 0.25 mg Intravenous q10 min PRN Carolina Forest, Leon B, DO 0.25 mg at 02/22/251953 Or HYDROmorphone (Dilaudid) bolus from bag 0.5 mg Intravenous q10 min PRN Carolina Forest, Leon B, DO 0.5 mg at 02/22/251926 hydromorphone 20 mg in NS 100 mL infusion (200 mcg/mL) 0.25-2 mg/hr Intravenous Titrated Carolina Forest, Leon B, DO 1.25 mL/hr at 02/22/251926 0.25 mg/hr at 02/22/251926 ipratropium-albuterol (Duo-Neb) 0.5-2.5 mg/3 mL nebulizer solution 3 mL 3 mL Nebulization Once Carolina Forest, Leon B, DO mupirocin (Bactroban) 2 % [...] evaluated the patient with the resident/fellow via Critical access hospital ICU audio- visual support as available. I [...] CTHAP: no acute findings Steroids in ED [facility] ED -> transferred here. VBG completed [...] Status: She is disoriented. Comments: GCS 9 [place] Coma Scale Score: 11 ED Course & [...] Daily Order ID Start Status Ordering Provider [id number] 02/23/25 0800 Ordered MORTONLUDA Stevens 02/24/25 0600 [...] Continuous Order ID Start Status Ordering Provider [id number] 02/22/25 1859 Ordered LUDA MORTON [id number] 02/22/25 2000 Completed LUDA MORTON [id number] 02/23/25 0800 Ordered LUDA MORTON T 02/23/251999 Scheduled MORTONLUDA 02/24/25 0800 Scheduled MORTON, LUDA Cisneros 02/24/251999 Scheduled MORTON, LUDA T 02/25/25 0800 Scheduled MORTON, LUDA T 02/25/251999 Scheduled MORTON LUDA Cisneros 02/26/25 0800 Scheduled MORTON, LUDA Cisneros 02/26/251999 Scheduled MORTON, LUDA Cisneros Ordered MORTON LUDA Cisneros 02/22/251857 End Tidal co2 Monitoring Continuous Order ID Start Status Ordering Provider [id number] 02/22/251858 Ordered MORTONLUDA Stevens [id number] 02/22/251999 Completed MORTON LUDA Cisneros [id number] 02/23/25 08 Ordered MORTON LUDA Cisneros 02/23/251999 [...] mucosal integrityUntil discontinued Ordered LUDA MORTON 02/22/251857 [place] teeth every 12 hours Until discontinued Ordered [...] intracranial process but multiple chronic infarcts and afmx-kh-sbpaohug small-vessel disease. Additionally CT angio of the [...] within normal ranges. Lactate also normal at [facility]. No further advanced imaging was required [...] (cerebral infarction) COPD (chronic obstructive pulmonary disease) ([facility]) Depression Fibromyalgia History of falling [...] BREAST SURGERY N/A Breast Surgery Reconstruction from [facility] BREAST SURGERY N/A Breast Surgery from [facility] CHOLECYSTECTOMY N/A Cholecystotomy from [facility] KIDNEY SURGERY N/A Kidney Surgery from [facility] KNEE SURGERY N/A Knee Surgery from [facility] MASTECTOMY N/A Breast Surgery Mastectomy from [facility] SHOULDER SURGERY Right Shoulder Surgery Right from [facility] [3] Family History Problem Relation Name Age [...] is unaware of what reaction. Pedi-Pre Tape Star [Wound Dressing Adhesive] Rash Wellbutrin [Bupropion] Rash [...] Support Medical [facility] Building Lab [address] [place] [address] 03/27/2025 1:00 PM EDT Office Visit Medical Office Building Urology [address], [address] [place] [address] Cayla Erazo, GEAR KEEPER, DNP [address] [place] [address] 05/16/2025 8:00 AM EDT Office Visit [facility] [place] [address], [address] [place] [address] Karly Gracia MD [address] [place] [address] 06/07/2025 1:00 PM EDT Office Visit [facility] [address] [place] [address] Tom Iraheta MD [address] [place] [address] documented as of this encounter [...] EDT EXTUBATION Routine 02/24/2025 9:49 AM EDT DE CRITICAL CARE, E/M 30-74 MINUTES Routine 02/24/2025 7:08 AM EDT Acute respiratory failure with hypoxia and hypercapnia Acute kidney injury superimposed on CKD ([facility]) Chronic kidney disease, stage 3a ([facility]) Hyponatremia Acute encephalopathy Sepsis with encephalopathy without septic shock, due to unspecified organism ([facility]) Chronic diastolic (congestive) heart failure ([facility]) POCT GLUCOSE METER UNSOLICITED RESULTS [...] AND TREAT Routine 02/23/2025 10:25 AM EDT DE CRITICAL CARE, E/M 30-74 MINUTES Routine 02/23/2025 9:10 AM EDT Acute respiratory failure with hypoxia and hypercapnia Acute kidney injury superimposed on CKD ([facility]) Chronic kidney disease, stage 3a ([facility]) Hyponatremia Acute encephalopathy Sepsis with encephalopathy without septic shock, due to unspecified organism ([facility]) SODIUM, PLASMA Timed 02/23/2025 8:34 [...] for testing. Comment 03/02/2025 8:14 AM EDT [facility] Wheel Cutter ID Stefanie Frances 025 8:14 AM EDT [facility] Device ID [id number] 03/02/2025 8:14 AM EDT [facility] Specimen Type POC Capillary 03/02/2025 8:14 AM EDT [facility] Blood Capillary blood specimen / Unknown 03/02/2025 8:13 AM EDT 03/02/2025 8:14 AM EDT [facility] POINT OF CARE TE ST DOCKED DEVICE UNSOLICITED RESULTS Final Result Performing Organization Address City/State/[facility] Co de Phone Number [facility] [address] [place] [address] * (ABNORMAL) POCT glucose meter (03/01/2025 7:46 [...] 03/01/2025 7:47 PM EDT [facility] Wheel Cutter ID Kamron Freire 03/01/2025 7:47 PM EDT [facility] Device ID [id number] 03/01/2025 7:47 PM EDT [facility] Specimen Type POC Capillary 03/01/2025 7:47 PM EDT HEALTHCARE LAB Blood Capillary blood specimen / Unknown 03/01/2025 7:46 PM EDT 03/01/2025 7:47 PM EDT us Madonna Singleton MD LAB POINT OF CARE TE ST DOCKED DEVICE UNSOLICITED RESULTS Final Result Performing Organization Address City/[facility] Co de Phone Number HEALTHCARE LAB [address] [place] [address] * (ABNORMAL) POCT glucose meter (03/01/2025 5:42 PM EDT) [facility] Signature POCT Glucose 160(H) 74 - 99 mg/dL [...] 03/01/2025 5:45 PM EDT [facility] Wheel Cutter ID Norberto Smyth 03/01/20 25 5:45 PM EDT [facility] Device ID [id number] 03/01/2025 5:45 PM EDT [facility] Specimen Type POC Capillary 03/01/2025 5:45 PM EDT [facility]ALTH[facility]ARE LAB Blood Capillary blood specimen / Unknown 03/01/2025 5:42 PM EDT 03/01/2025 5:45 PM EDT us Madonna Singleton MD LAB POINT OF CARE TE ST DOCKED DEVICE UNSOLICITED RESULTS Final Result Performing Organization Address City/[facility]/ZIP Co de Phone Number [facility] [address] [place] [address] * SEND HECTOR MESSAGE (03/01/2025 4:15 PM EDT) Urine Urine specimen obtained by clean catch procedure / Unknown Non-blood Collection / Unknown 03/01/2025 4:15 PM EDT 03/01/2025 4:26 PM EDT us Madonna Mani [facility] URINE ORDERABLES Final Resul t [facility] [address] [place] [address] * (ABNORMAL) Urine Culture (03/01/2025 4:15 PM EDT) Culture 10,000 - 100,000 CFU/mL Enterobacter cloacae complex(A) CHRISTIANO 03/05/2025 12:12 PM EDT [facility] Comment: This isolate has been identified using the FDA Approved MALDI [employer] [place] System Edited result: Previously reported as [...] ORDER GIO Final Result Performing Organization Address [facility] Co de Phone Number [facility] [address] [place] [address] * Urinalysis Microscopic Examination (03/01/2025 4:15 PM EDT) Urine Urine specimen obtained by clean catch procedure / Unknown Non-blood Collection / Unknown 03/01/2025 4:15 PM EDT 03/01/2025 4:26 PM EDT us Madonna Singleton MD LAB URINE ORDERABLES Final Resul t Performing Organization Address City/[facility] Co de Phone Number [facility] [address] [place] [address] * Urine Salmon Panel (03/01/2025 4:15 PM EDT) Extra Sent for Culture 03/01/2025 6:01 PM EDT [facility] Urine Urine specimen obtained by clean catch procedure / Unknown Non-blood Collection / Unknown 03/01/2025 4:15 PM EDT 03/01/2025 4:26 PM EDT us Madonna Singleton MD LAB URINE ORDERABLES Final Resul t Performing Organization Address [facility] Co de Phone Number [facility] [address] [place] [address] * (ABNORMAL) Urinalysis with reflex microscopic (Culture NOT Included) (03/01/2025 4:15 PM EDT) Color, Urine Yellow LAB URINALYSIS - AUTOMATED METHOD 03/01/2025 4:34 PM EDT [facility] Clarity, Urine Cloudy LAB URINALYSIS - AUTOMATED METHOD 03/01/2025 4:34 PM EDT [facility] Spec [place], Urine 1.008 1.005 - 1.030 LAB URINALYSIS - AUTOMATED METHOD 03/01/2025 4:34 PM EDT [facility] pH, Urine 6.5 5.0 - 8.0 LAB URINALYSIS - AUTOMATED METHOD 03/01/2025 4:34 PM EDT [facility] Protein, Urine 30(A) Negative mg/dL LAB URINALYSIS - AUTOMATED METHOD 03/01/2025 4:34 PM EDT [facility] Glucose, Urine Negative Negative mg/dL LAB URINALYSIS - AUTOMATED METHOD 03/01/2025 4:34 PM EDT [facility] Ketones, Urine Negative Negative mg/dL LAB URINALYSIS - AUTOMATED METHOD 03/01/2025 4:34 PM EDT [facility] Blood, Urine Large(A) Negative LAB URINALYSIS - AUTOMATED METHOD 03/01/2025 4:34 PM EDT [facility] Bilirubin, Urine Negative Negative LAB URINALYSIS - AUTOMATED METHOD 03/01/2025 4:34 PM EDT [facility] Urobilinogen, Urine 0.2 0.2 to 1.0 mg/dL LAB URINALYSIS - AUTOMATED METHOD 03/01/2025 4:34 PM EDT [facility] Leukocytes, Urine Large(A) Negative LAB URINALYSIS - AUTOMATED METHOD 03/01/2025 4:34 PM EDT [facility] Nitrite, Urine Negative Negative LAB URINALYSIS - AUTOMATED METHOD 03/01/2025 4:34 PM EDT [facility] RBC, Urine >50(A) 0 to 3 /HPF LAB URINALYSIS - AUTOMATED METHOD 03/01/2025 4:34 PM EDT [facility] WBC, Urine >50(A) 0 to 5 /HPF LAB URINALYSIS - AUTOMATED METHOD 03/01/2025 4:34 PM EDT [facility] Squamous Epithelial Cells 3 - 5 0 to 5 /HPF LAB URINALYSIS - AUTOMATED METHOD 03/01/2025 4:34 PM EDT [facility] Hyaline Casts 0 - 2 0 to 5 /LPF LAB URINALYSIS - AUTOMATED METHOD 03/01/2025 4:34 PM EDT [facility] Bacteria, Urine Negative Negative LAB URINALYSIS - AUTOMATED METHOD 03/01/2025 4:34 PM EDT [facility] Urine Urine specimen obtained by clean catch procedure / Unknown Non-blood Collection / Unknown 03/01/2025 4:15 PM EDT 03/01/2025 4:26 PM EDT us Madonna Singleton MD LAB URINE ORDERABLES Final Resul t [facility] [address] [place] [address] * (ABNORMAL) POCT glucose meter (03/01/2025 12:03 PM EDT) [facility] POCT Glucose 206(H) 74 - 99 mg/dL [...] Comment 03/01/2025 12:05 PM EDT HEALTHCARE LAB Wheel Cutter ID Janice Hidalgoty 03/01/2025 12:05 PM EDT HEALTHCARE LAB Device ID [id number] 03/01/2025 12:05 PM EDT HEALTHCARE LAB Specimen Type POC Capillary 03/01/2025 12:05 PM EDT [facility] Blood Capillary blood specimen / Unknown 03/01/2025 12:03 PM EDT 03/01/2025 12:05 PM EDT us Madonna Singleton MD LAB POINT OF CARE TE ST DOCKED DEVICE UNSOLICITED RESULTS Final Result [facility] [address] [place] [address] * (ABNORMAL) POCT glucose meter (03/01/2025 7:59 AM EDT) Pathologist [facility] POCT Glucose 200(H) 74 - 99 mg/dL 03/01/2025 8:01 AM EDT [facility]ARE LAB Comment:Accuracy of a [...] Comment 03/01/2025 8:01 AM EDT HEALTHCARE LAB Wheel Cutter ID Nancy Hidalgo 03/01/2025 8:01 AM EDT HEALTHCARE LAB Device ID [id number] 03/01/2025 8:01 AM EDT [facility] Specimen Type POC Capillary 03/01/2025 8:01 AM EDT [facility] Blood Capillary blood specimen / Unknown 03/01/2025 7:59 AM EDT 03/01/2025 8:01 AM EDT us Madonna Mani [facility] LAB POINT OF CARE TE ST DOCKED DEVICE UNSOLICITED RESULTS Final Result [facility] [address] [place] [address] * (ABNORMAL) CBC and Differential (03/01/2025 4:08 AM EDT) [facility] WBC Count 6.83 3.70 - 10.30 10*3/uL LAB HEMATOLOGY METHOD 03/01/2025 4:54 AM EDT [facility] RBC Count 3.61(L) 3.90 - 5.20 10*6/uL LAB HEMATOLOGY METHOD 03/01/2025 4:54 AM EDT [facility] HGB 9.2(L) 11.2 - 15.7 g/dL LAB HEMATOLOGY METHOD 03/01/2025 4:54 AM EDT [facility] HCT 29.9(L) 34.0 - 45.0 % LAB HEMATOLOGY METHOD 03/01/2025 4:54 AM EDT [facility] Platelet Count 294 155 - 369 10*3/uL LAB HEMATOLOGY METHOD 03/01/2025 4:54 AM EDT [facility] MCV 83 79 - 98 fL LAB HEMATOLOGY METHOD 03/01/2025 4:54 AM EDT [facility] MCH 25.5(L) 26.0 - 32.0 pg LAB HEMATOLOGY METHOD 03/01/2025 4:54 AM EDT [facility] MCHC 30.8 30.7 - 35.5 g/dL LAB HEMATOLOGY METHOD 03/01/2025 4:54 AM EDT [facility] RDW 15.1(H) 11.5 - 14.5 % LAB HEMATOLOGY METHOD 03/01/2025 4:54 AM EDT [facility] MPV 9.2 8.8 - 12.5 fL LAB HEMATOLOGY METHOD 03/01/2025 4:54 AM EDT [facility] nRBC 0.0 <=0.0 per 100 WBCs LAB HEMATOLOGY METHOD 03/01/2025 4:54 AM EDT [facility] Differential Type Automated LAB HEMATOLOGY METHOD 03/01/2025 4:54 AM EDT [facility] Neutrophils % 56 % LAB HEMATOLOGY METHOD 03/01/2025 4:54 AM EDT [facility] Lymphocytes % 25 % LAB HEMATOLOGY METHOD 03/01/2025 4:54 AM EDT [facility] Monocytes % 11 % LAB HEMATOLOGY METHOD 03/01/2025 4:54 AM EDT [facility] Eosinophils % 6 % LAB HEMATOLOGY METHOD 03/01/2025 4:54 AM EDT [facility] Basophils % 1 % LAB HEMATOLOGY METHOD 03/01/2025 4:54 AM EDT [facility] Immature Granulocytes % 1 % LAB HEMATOLOGY METHOD 03/01/2025 4:54 AM EDT [facility] Neutrophils Absolute 3.86 1.60 - 6.10 10*3/uL LAB HEMATOLOGY METHOD 03/01/2025 4:54 AM EDT [facility] Lymphocytes Absolute 1.70 1.20 - 3.90 10*3/uL LAB HEMATOLOGY METHOD 03/01/2025 4:54 AM EDT [facility] Monocytes Absolute 0.74 0.30 - 0.90 10*3/uL LAB HEMATOLOGY METHOD 03/01/2025 4:54 AM EDT [facility] Eosinophils Absolute 0.44 0.00 - 0.50 10*3/uL LAB HEMATOLOGY METHOD 03/01/2025 4:54 AM EDT [facility] Basophils Absolute 0.05 0.00 - 0.10 10*3/uL LAB HEMATOLOGY METHOD 03/01/2025 4:54 AM EDT [facility] Immature Granulocytes Absolute 0.04 0.00 - 0.06 10*3/uL LAB HEMATOLOGY METHOD 03/01/2025 4:54 AM EDT [facility] Blood Venous blood specimen / Unknown Venipuncture / Unknown 03/01/2025 4:08 AM EDT 03/01/2025 4:42 AM EDT Narrative [facility] - 03/01/2025 4:54 AM EDT Therapeutic decision making should be based on absolute values, rather than percentages. us Madonna Singleton MD LAB BLOOD ORDERABLES Final Resul t Performing Organization Address City/[facility] Co de Phone Number [facility] [address] [place] [address] * Magnesium, Plasma (03/01/2025 4:08 AM EDT) Magnesium, Plasma 2.0 1.9 - 2.4 mg/dL 03/01/2025 5:14 AM EDT [facility] Blood Venous blood specimen / Unknown Venipuncture / Unknown 03/01/2025 4:08 AM EDT 03/01/2025 4:43 AM EDT us Madonna Singleton MD LAB BLOOD ORDERABLES Final Resul t Performing Organization Address City/[facility]/ZIP Co de Phone Number [facility] [address] [place] [address] * (ABNORMAL) Basic Metabolic Panel, Plasma (03/01/2025 4:08 AM EDT) Glucose, Plasma 205(H) 74 - 99 mg/dL 03/01/2025 5:14 AM EDT [facility] BUN, Plasma 40(H) 8 - 23 mg/dL 03/01/2025 5:14 AM EDT [facility] Creatinine, Plasma 1.84(H) 0.60 - 1.10 mg/dL 03/01/2025 5:14 AM EDT [facility] BUN/Creatinine Ratio 22 03/01/2025 5:14 AM EDT [facility] Sodium, Plasma 125(L) 136 - 145 mmol/L 03/01/2025 5:14 AM EDT [facility] Potassium, Plasma 4.5 3.6 - 4.9 mmol/L 03/01/2025 5:14 AM EDT [facility] Chloride, Plasma 91(L) 97 - 107 mmol/L 03/01/2025 5:14 AM EDT [facility] CO2, Plasma 23 22 - 29 mmol/L 03/01/2025 5:14 AM EDT [facility] Anion Gap 11 6 - 16 mmol/L 03/01/2025 5:14 AM EDT [facility] Total Calcium, Plasma 8.8(L) 8.9 - 10.2 mg/dL 03/01/2025 5:14 AM EDT [facility] eGFRcr 30.1 mL/min/1.7 3m*2 03/01/2025 5:14 AM EDT [facility] Comment:Reported eGFRcr in m L/min/1.73m2 is based the CKD-EPI 2020 equation that does not use a race coefficient. Blood Venous blood specimen / Unknown Venipuncture / Unknown 03/01/2025 4:08 AM EDT 03/01/2025 4:43 AM EDT us Madonna Singleton MD LAB BLOOD ORDERABLES Final Resul t [facility] [address] [place] [address] * Phosphorus, Plasma (03/01/2025 4:08 AM EDT) Phosphorus, Plasma 4.4 2.5 - 4.5 mg/dL 03/01/2025 5:14 AM EDT [facility] Blood Venous blood specimen / Unknown Venipuncture / Unknown 03/01/2025 4:08 AM EDT 03/01/2025 4:43 AM EDT us Madonna Singleton MD LAB BLOOD ORDERABLES Final Resul t Performing Organization Address City/[facility]/ZIP Co de Phone Number [facility] [address] [place] [address] * (ABNORMAL) POCT glucose meter (03/01/2025 3:09 AM EDT) Pathologist [facility] POCT Glucose 187(H) 74 - 99 [...] Comment 03/01/2025 3:35 AM EDT HEALTHCARE LAB Wheel Cutter ID Pat Young 03/01/2025 3:35 AM EDT [facility] Device ID [id number] 03/01/2025 3:35 AM EDT [facility] Specimen Type POC Capillary 03/01/2025 3:35 AM EDT [facility] Blood Capillary blood specimen / Unknown 03/01/2025 3:09 AM EDT 03/01/2025 3:35 AM EDT Madonna Singleton MD LAB POINT OF CARE TE ST DOCKED DEVICE UNSOLICITED RESULTS Final Result Performing Organization Address City/[facility] Co de Phone Number [facility]ALTHCARE LAB [address] [place] [address] * (ABNORMAL) POCT glucose meter (02/28/2025 8:25 PM EDT) Pathologist [facility] POCT Glucose 258(H) 74 - 99 mg/dL 02/28/2025 8:42 PM EDT [facility]ARE LAB Comment:Accuracy of a [...] Comment 02/28/2025 8:42 PM EDT [facility]ALTHCARE LAB Wheel Cutter ID Pat Young 02/28/2025 8:42 PM EDT HEALTHCARE LAB Device ID [id number] 02/28/2025 8:42 PM EDT [facility]ALTH[facility]ARE LAB Specimen Type POC Capillary 02/28/2025 8:42 PM EDT [facility] Blood Capillary blood specimen / Unknown 02/28/2025 8:25 PM EDT 02/28/2025 8:42 PM EDT us Madonna Singleton MD LAB POINT OF CARE TE ST DOCKED DEVICE UNSOLICITED RESULTS Final Result Performing Organization Address City/[facility]/ZIP Co de Phone Number [facility] [address] [place] [address] * (ABNORMAL) POCT glucose meter (02/28/2025 4:59 PM EDT) [facility] POCT Glucose 300(H) 74 - 99 mg/dL [...] for testing. Comment 02/28/2025 5:00 PM EDT [facility] Wheel Cutter ID Nancy Hidalgo 02/28/2025 5:00 PM EDT HEALTHCARE LAB Device ID [id number] 02/28/2025 5:00 PM EDT [facility]ALTH[facility]ARE LAB Specimen Type POC Capillary 02/28/2025 5:00 PM EDT [facility]ARE LAB Blood Capillary blood specimen / Unknown 02/28/2025 4:59 PM EDT 02/28/2025 5:00 PM EDT us Madonna Singleton MD LAB POINT OF CARE TE ST DOCKED DEVICE UNSOLICITED RESULTS Final Result Performing Organization Address City/[facility]/ZIP Co de Phone Number [facility]ARE [facility] [address] [place] [address] * (ABNORMAL) CBC and Differential (02/28/2025 1:04 PM EDT) [facility] WBC Count 7.39 3.70 - 10.30 10*3/uL LAB HEMATOLOGY METHOD 02/28/2025 1:37 PM EDT [facility] RBC Count 4.30 3.90 - 5.20 10*6/uL LAB HEMATOLOGY METHOD 02/28/2025 1:37 PM EDT [facility] HGB 11.0(L) 11.2 - 15.7 g/dL LAB HEMATOLOGY METHOD 02/28/2025 1:37 PM EDT [facility] HCT 35.0 34.0 - 45.0 % LAB HEMATOLOGY METHOD 02/28/2025 1:37 PM EDT [facility] Platelet Count 399(H) 155 - 369 10*3/uL LAB HEMATOLOGY METHOD 02/28/2025 1:37 PM EDT [facility] MCV 81 79 - 98 fL LAB HEMATOLOGY METHOD 02/28/2025 1:37 PM EDT [facility] MCH 25.6(L) 26.0 - 32.0 pg LAB HEMATOLOGY METHOD 02/28/2025 1:37 PM EDT [facility] MCHC 31.4 30.7 - 35.5 g/dL LAB HEMATOLOGY METHOD 02/28/2025 1:37 PM EDT [facility] RDW 15.5(H) 11.5 - 14.5 % LAB HEMATOLOGY METHOD 02/28/2025 1:37 PM EDT [facility] MPV 9.0 8.8 - 12.5 fL LAB HEMATOLOGY METHOD 02/28/2025 1:37 PM EDT [facility] nRBC 0.0 <=0.0 per 100 WBCs LAB HEMATOLOGY METHOD 02/28/2025 1:37 PM EDT [facility] Differential Type Automated LAB HEMATOLOGY METHOD 02/28/2025 1:37 PM EDT [facility] Neutrophils % 62 % LAB HEMATOLOGY METHOD 02/28/2025 1:37 PM EDT [facility] Lymphocytes % 21 % LAB HEMATOLOGY METHOD 02/28/2025 1:37 PM EDT [facility] Monocytes % 9 % LAB HEMATOLOGY METHOD 02/28/2025 1:37 PM EDT [facility] Eosinophils % 6 % LAB HEMATOLOGY METHOD 02/28/2025 1:37 PM EDT [facility] Basophils % 1 % LAB HEMATOLOGY METHOD 02/28/2025 1:37 PM EDT [facility] Immature Granulocytes % 1 % LAB HEMATOLOGY METHOD 02/28/2025 1:37 PM EDT [facility] Neutrophils Absolute 4.64 1.60 - 6.10 10*3/uL LAB HEMATOLOGY METHOD 02/28/2025 1:37 PM EDT [facility] Lymphocytes Absolute 1.54 1.20 - 3.90 10*3/uL LAB HEMATOLOGY METHOD 02/28/2025 1:37 PM EDT [facility] Monocytes Absolute 0.69 0.30 - 0.90 10*3/uL LAB HEMATOLOGY METHOD 02/28/2025 1:37 PM EDT [facility] Eosinophils Absolute 0.41 0.00 - 0.50 10*3/uL LAB HEMATOLOGY METHOD 02/28/2025 1:37 PM EDT [facility] Basophils Absolute 0.05 0.00 - 0.10 10*3/uL LAB HEMATOLOGY METHOD 02/28/2025 1:37 PM EDT [facility] Immature Granulocytes Absolute 0.06 0.00 - 0.06 10*3/uL LAB HEMATOLOGY METHOD 02/28/2025 1:37 PM EDT [facility] Blood Venous blood specimen / Unknown Venipuncture / Unknown 02/28/2025 1:04 PM EDT 02/28/2025 1:28 PM EDT Narrative [facility] - 02/28/2025 1:37 PM EDT Therapeutic decision making should be based on absolute values, rather than percentages. us Madonna Mani BENSON LAB BLOOD ORDERABLES Final Resul t [facility] [address] [place] [address] * (ABNORMAL) Magnesium, Plasma (02/28/2025 1:04 PM EDT) Magnesium, Plasma 1.7(L) 1.9 - 2.4 mg/dL 02/28/2025 1:45 PM EDT [facility] Blood Venous blood specimen / Unknown Venipuncture / Unknown 02/28/2025 1:04 PM EDT 02/28/2025 1:14 PM EDT us Madonna Singleton MD LAB BLOOD ORDERABLES Final Resul t [facility] [address] [place] [address] * (ABNORMAL) Basic Metabolic Panel, Plasma (02/28/2025 1:04 PM EDT) Glucose, Plasma 166(H) 74 - 99 mg/dL 02/28/2025 1:45 PM EDT [facility] BUN, Plasma 40(H) 8 - 23 mg/dL 02/28/2025 1:45 PM EDT [facility] Creatinine, Plasma 1.99(H) 0.60 - 1.10 mg/dL 02/28/2025 1:45 PM EDT [facility] BUN/Creatinine Ratio 20 02/28/2025 1:45 PM EDT [facility] Sodium, Plasma 130(L) 136 - 145 mmol/L 02/28/2025 1:45 PM EDT [facility] Potassium, Plasma 4.6 3.6 - 4.9 mmol/L 02/28/2025 1:45 PM EDT [facility] Chloride, Plasma 93(L) 97 - 107 mmol/L 02/28/2025 1:45 PM EDT [facility] CO2, Plasma 24 22 - 29 mmol/L 02/28/2025 1:45 PM EDT [facility] Anion Gap 13 6 - 16 mmol/L 02/28/2025 1:45 PM EDT [facility] Total Calcium, Plasma 9.3 8.9 - 10.2 mg/dL 02/28/2025 1:45 PM EDT [facility] eGFRcr 27.4 mL/min/1.7 3m*2 02/28/2025 1:45 PM EDT [facility] Comment:Reported eGFRcr in m L/min/1.73m2 is based the CKD-EPI 2020 equation that does not use a race coefficient. Blood Venous blood specimen / Unknown Venipuncture / Unknown 02/28/2025 1:04 PM EDT 02/28/2025 1:14 PM EDT us Madonna Singleton MD LAB BLOOD ORDERABLES Final Resul t Performing Organization Address City/[facility]/ZIP Co de Phone Number [facility] [address] [place] [address] * Phosphorus, Plasma (02/28/2025 1:04 PM EDT) [facility] Phosphorus, Plasma 4.1 2.5 - 4.5 mg/dL 02/28/2025 1:45 PM EDT [facility] Blood Venous blood specimen / Unknown Venipuncture / Unknown 02/28/2025 1:04 PM EDT 02/28/2025 1:14 PM EDT us Madonna Singleton MD LAB BLOOD ORDERABLES Final Resul t Performing Organization Address [facility] Co de Phone Number [facility] [address] [place] [address] * (ABNORMAL) POCT glucose meter (02/28/2025 12:17 PM EDT) [facility] POCT Glucose 161(H) 74 - 99 mg/dL [...] 02/28/2025 12:19 PM EDT [facility] Wheel Cutter ID Janice Hidalgoty 02/28/2025 12:19 PM EDT [facility] Device ID [id number] 02/28/2025 12:19 PM EDT [facility] Specimen Type POC Capillary 02/28/2025 12:19 PM EDT [facility] Blood Capillary blood specimen / Unknown 02/28/2025 12:17 PM EDT 02/28/2025 12:19 PM EDT us Madonna Singleton MD LAB POINT OF CARE TE ST DOCKED DEVICE UNSOLICITED RESULTS Final Result Performing Organization Address City/[facility] Co de Phone Number [facility] [address] [place] [address] * (ABNORMAL) POCT glucose meter (02/27/2025 8:12 PM EDT) Pathologist [facility] POCT Glucose 211(H) 74 - 99 [...] Comment 02/27/2025 8:14 PM EDT [facility] Wheel Cutter ID Pat Young 02/27/2025 8:14 PM EDT [facility] Device ID [id number] 02/27/2025 8:14 PM EDT [facility] Specimen Type POC Capillary 02/27/2025 8:14 PM EDT [facility] Blood Capillary blood specimen / Unknown 02/27/2025 8:12 PM EDT 02/27/2025 8:14 PM EDT us Madonna Singleton MD LAB POINT OF CARE TE ST DOCKED DEVICE UNSOLICITED RESULTS Final Result Performing Organization Address City/[facility] Co de Phone Number [facility] [address] [place] [address] * (ABNORMAL) POCT glucose meter (02/27/2025 5:20 PM EDT) Pathologist [facility] POCT Glucose 171(H) 74 - 99 [...] 02/27/2025 5:21 PM EDT [facility] Wheel Cutter ID Nancy Hidalgo 02/27/2025 5:21 PM EDT [facility] Device ID [id number] 02/27/2025 5:21 PM EDT [facility] Specimen Type POC Capillary 02/27/2025 5:21 PM EDT [facility] Blood Capillary blood specimen / Unknown 02/27/2025 5:20 PM EDT 02/27/2025 5:21 PM EDT us Madonna Singleton MD LAB POINT OF CARE TE ST DOCKED DEVICE UNSOLICITED RESULTS Final Result Performing Organization Address City/[facility]/ZIP Co de Phone Number [facility] [address] [place] [address] * (ABNORMAL) POCT glucose meter (02/27/2025 12:29 PM EDT) [facility] Signature POCT Glucose 247(H) 74 - [...] Comment 02/27/2025 12:30 PM EDT [facility] Wheel Cutter ID Daniela Carroll 025 12:30 PM EDT [facility] Device ID [id number] 02/27/2025 12:30 PM EDT [facility] Specimen Type POC Capillary 02/27/2025 12:30 PM EDT [facility] Blood Capillary blood specimen / Unknown 02/27/2025 12:29 PM EDT 02/27/2025 12:30 PM EDT us Ludy Hill MD LAB POINT OF CARE TE ST DOCKED DEVICE UNSOLICITED RESULTS Final Result Performing Organization Address City/[facility]/ZIP Co de Phone Number [facility] [address] [place] [address] * XR Panorex (02/27/2025 12:13 PM EDT) [...] in the posterior aspect of tooth #31. Assumption wear in tooth number 8, 9 and 23. No periapical lucency Procedure Note Lucas Cristobal MD - 02/27/2025 CLINICAL INDICATION: Odontogenic infection TECHNIQUE: XR PANOREX COMPARISON: None. FINDINGS: Rounded lucency in tooth #6. Aggressive destruction in the posterioraspect of tooth #31. Assumption wear in tooth number 8, 9 and [...] POCT glucose meter (02/27/2025 8:19 AM EDT) Pathologist [facility] POCT Glucose 192(H) 74 - 99 mg/dL 02/27/2025 8:21 AM EDT [facility] Comment:Accuracy of a glucos e result [...] 02/27/2025 8:21 AM EDT [facility] Wheel Cutter ID Laurenluciano Daniela Darin 025 8:21 AM EDT [facility] LAB Device ID [id number] 02/27/2025 8:21 AM EDT [facility] Specimen Type POC Capillary 02/27/2025 8:21 AM EDT [facility] Blood Capillary blood specimen / Unknown 02/27/2025 8:19 AM EDT 02/27/2025 8:21 AM EDT us Ludy Hill MD LAB POINT OF CARE TE ST DOCKED DEVICE UNSOLICITED RESULTS Final Result Performing Organization Address City/[facility]/ZIP Co de Phone Number [facility] [address] [place] [address] * (ABNORMAL) POCT glucose meter (02/26/2025 7:37 PM EDT) [facility] POCT Glucose 327(H) 74 - 99 mg/dL [...] for testing. Comment 02/26/2025 7:38 PM EDT [facility] Wheel Cutter ID Daniela Mcbride 02/26/2025 7:38 PM EDT [facility] Device ID [id number] 02/26/2025 7:38 PM EDT [facility] Specimen Type POC Capillary 02/26/2025 7:38 PM EDT [facility] Blood Capillary blood specimen / Unknown 02/26/2025 7:37 PM EDT 02/26/2025 7:38 PM EDT us Ludy Hill MD LAB POINT OF CARE TE ST DOCKED DEVICE UNSOLICITED RESULTS Final Result Performing Organization Address City/[facility]/ZIP Co de Phone Number [facility] [address] [place] [address] * (ABNORMAL) POCT glucose meter (02/26/2025 5:16 PM EDT) [facility] POCT Glucose 208(H) 74 - 99 mg/dL [...] 02/26/2025 5:18 PM EDT [facility] Wheel Cutter ID Pierre Bassem J 02/26/2025 5:18 PM EDT [facility] Device ID [id number] 02/26/2025 5:18 PM EDT [facility] Specimen Type POC Capillary 02/26/2025 5:18 PM EDT [facility] Blood Capillary blood specimen / Unknown 02/26/2025 5:16 PM EDT 02/26/2025 5:18 PM EDT Ludy Hill MD LAB POINT OF CARE TE ST DOCKED DEVICE UNSOLICITED RESULTS Final Result [facility] [address] [place] [address] * (ABNORMAL) POCT glucose meter (02/26/2025 1:08 PM EDT) [facility] POCT Glucose 223(H) 74 - 99 mg/dL [...] Comment 02/26/2025 1:09 PM EDT [facility] Wheel Cutter ID Any Jayantoine Pierson 02/26/2025 1:09 PM EDT [facility] Device ID [id number] 02/26/2025 1:09 PM EDT [facility] Specimen Type POC Capillary 02/26/2025 1:09 PM EDT [facility] Blood Capillary blood specimen / Unknown 02/26/2025 1:08 PM EDT 02/26/2025 1:09 PM EDT us Ludy Hill MD LAB POINT OF CARE TE ST DOCKED DEVICE UNSOLICITED RESULTS Final Result Performing Organization Address [facility] de Phone Number [facility] [address] [place] [address] * (ABNORMAL) POCT glucose meter (02/26/2025 9:45 AM EDT) [facility] POCT Glucose 187(H) 74 - 99 mg/dL [...] Comment 02/26/2025 9:46 AM EDT [facility] Wheel Cutter ID Bassem Jay 02/26/2025 9:46 AM EDT [facility] Device ID [id number] 02/26/2025 9:46 AM EDT [facility] Specimen Type POC Capillary 02/26/2025 9:46 AM EDT [facility] Blood Capillary blood specimen / Unknown 02/26/2025 9:45 AM EDT 02/26/2025 9:46 AM EDT us Ludy Hill MD LAB POINT OF CARE TE ST DOCKED DEVICE UNSOLICITED RESULTS Final Result Performing Organization Address [facility] Co de Phone Number [facility] [address] [place] [address] * (ABNORMAL) Hemogram (CBC) (02/26/2025 4:51 AM EDT) [facility] WBC Count 7.59 3.70 - 10.30 10*3/uL LAB HEMATOLOGY METHOD 02/26/2025 5:25 AM EDT [facility] RBC Count 4.00 3.90 - 5.20 10*6/uL LAB HEMATOLOGY METHOD 02/26/2025 5:25 AM EDT [facility] HGB 10.3(L) 11.2 - 15.7 g/dL LAB HEMATOLOGY METHOD 02/26/2025 5:25 AM EDT [facility] HCT 32.3(L) 34.0 - 45.0 % LAB HEMATOLOGY METHOD 02/26/2025 5:25 AM EDT [facility] Platelet Count 375(H) 155 - 369 10*3/uL LAB HEMATOLOGY METHOD 02/26/2025 5:25 AM EDT [facility] MCV 81 79 - 98 fL LAB HEMATOLOGY METHOD 02/26/2025 5:25 AM EDT [facility] MCH 25.8(L) 26.0 - 32.0 pg LAB HEMATOLOGY METHOD 02/26/2025 5:25 AM EDT [facility] MCHC 31.9 30.7 - 35.5 g/dL LAB HEMATOLOGY METHOD 02/26/2025 5:25 AM EDT [facility] RDW 15.5(H) 11.5 - 14.5 % LAB HEMATOLOGY METHOD 02/26/2025 5:25 AM EDT [facility] MPV 8.9 8.8 - 12.5 fL LAB HEMATOLOGY METHOD 02/26/2025 5:25 AM EDT [facility] nRBC 0.0 <=0.0 per 100 WBCs LAB HEMATOLOGY METHOD 02/26/2025 5:25 AM EDT [facility] Blood Venous blood specimen / Unknown Venipuncture / Unknown 02/26/2025 4:51 AM EDT 02/26/2025 5:12 AM EDT us Ludy Hill MD LAB BLOOD ORDERABLES Final Resul t [facility] [address] [place] [address] * (ABNORMAL) Magnesium, Plasma (02/26/2025 4:51 AM EDT) Magnesium, Plasma 1.7(L) 1.9 - 2.4 mg/dL 02/26/2025 5:54 AM EDT [facility] Blood Venous blood specimen / Unknown Venipuncture / Unknown 02/26/2025 4:51 AM EDT 02/26/2025 5:13 AM EDT us Ludy Hill MD LAB BLOOD ORDERABLES Final Resul t [facility] [address] [place] [address] * (ABNORMAL) Renal function panel (02/26/2025 4:51 AM EDT) Glucose, Plasma 156(H) 74 - 99 mg/dL 02/26/2025 5:54 AM EDT [facility] BUN, Plasma 26(H) 8 - 23 mg/dL 02/26/2025 5:54 AM EDT [facility] Creatinine, Plasma 1.62(H) 0.60 - 1.10 mg/dL 02/26/2025 5:54 AM EDT [facility] BUN/Creatinine Ratio 16 02/26/2025 5:54 AM EDT [facility] Sodium, Plasma 133(L) 136 - 145 mmol/L 02/26/2025 5:54 AM EDT [facility] Potassium, Plasma 4.2 3.6 - 4.9 mmol/L 02/26/2025 5:54 AM EDT [facility] Chloride, Plasma 96(L) 97 - 107 mmol/L 02/26/2025 5:54 AM EDT [facility] CO2, Plasma 24 22 - 29 mmol/L 02/26/2025 5:54 AM EDT [facility] Anion Gap 13 6 - 16 mmol/L 02/26/2025 5:54 AM EDT [facility] Total Calcium, Plasma 8.9 8.9 - 10.2 mg/dL 02/26/2025 5:54 AM EDT [facility] Phosphorus, Plasma 3.8 2.5 - 4.5 mg/dL 02/26/2025 5:54 AM EDT [facility] Albumin, Plasma 3.5 3.5 - 5.2 g/dL 02/26/2025 5:54 AM EDT [facility] eGFRcr 35.1 mL/min/1.7 3m*2 02/26/2025 5:54 AM EDT [facility] Comment:Reported eGFRcr in m L/min/1.73m2 is based the CKD-EPI 2020 equation that does not use a race coefficient. Blood Venous blood specimen / Unknown Venipuncture / Unknown 02/26/2025 4:51 AM EDT 02/26/2025 5:13 AM EDT us Ludy Hill MD LAB BLOOD ORDERABLES Final Resul t Performing Organization Address City/[facility]/ZIP Co de Phone Number [facility] [address] [place] [address] * (ABNORMAL) POCT glucose meter (02/25/2025 8:37 PM EDT) Pathologist [facility] POCT Glucose 289(H) 74 - 99 mg/dL 02/25/2025 8:39 PM EDT [facility] Comment:Accuracy of a [...] Comment 02/25/2025 8:39 PM EDT [facility] Wheel Cutter ID Daniela Mcbride 02/25/2025 8:39 PM EDT [facility] LAB Device ID [id number] 02/25/2025 8:39 PM EDT [facility] Specimen Type POC Capillary 02/25/2025 8:39 PM EDT [facility] Blood Capillary blood specimen / Unknown 02/25/2025 8:37 PM EDT 02/25/2025 8:39 PM EDT us Ludy Hill MD LAB POINT OF CARE TE ST DOCKED DEVICE UNSOLICITED RESULTS Final Result Performing Organization Address City/[facility]/ZIP Co de Phone Number [facility] [address] [place] [address] * ECG Adult (02/25/2025 6:38 PM EDT) EKG DIAGNOSIS CLASS Abnormal MUSE ECG Ventricular Rate 68 BPM MUSE ECG Atrial Rate 68 BPM MUSE ECG DE Interval 198 ms MUSE ECG QRSD Interval 136 ms MUSE ECG QT Interval 450 ms MUSE ECG QTC Interval 478 ms MUSE ECG P [place] 71 degrees MUSE ECG R [place] 265 degrees MUSE ECG T Wave [place] 50 degrees MUSE ECG Diagnosis Sinus rhythm [...] 02/25/2025 5:30 PM EDT [facility] Wheel Cutter ID Bassem Jay 02/25/2025 5:30 PM EDT [facility] Device ID [id number] 02/25/2025 5:30 PM EDT [facility] Specimen Type POC Capillary 02/25/2025 5:30 PM EDT [facility] Blood Capillary blood specimen / Unknown 02/25/2025 5:28 PM EDT 02/25/2025 5:30 PM EDT Ludy Hill MD LAB POINT OF CARE TE ST DOCKED DEVICE UNSOLICITED RESULTS Final Result [facility] [address] [place] [address] * (ABNORMAL) POCT glucose meter (02/25/2025 1:08 [...] Comment 02/25/2025 1:09 PM EDT [facility] Wheel Cutter ID Bassem Jay 02/25/2025 1:09 PM EDT [facility] Device ID [id number] 02/25/2025 1:09 PM EDT [facility] Specimen Type POC Capillary 02/25/2025 1:09 PM EDT [facility] Blood Capillary blood specimen / Unknown 02/25/2025 1:08 PM EDT 02/25/2025 1:09 PM EDT us Ludy Hill MD LAB POINT OF CARE TE ST DOCKED DEVICE UNSOLICITED RESULTS Final Result Performing Organization Address City/State/[facility] Co de Phone Number [facility] [address] [place] [address] * ECG Adult (02/25/2025 12:27 PM EDT) Pathologist [facility] EKG DIAGNOSIS CLASS Abnormal MUSE ECG Ventricular Rate 79 BPM MUSE ECG Atrial Rate 79 BPM MUSE ECG DE Interval 184 ms MUSE ECG QRSD Interval 134 ms MUSE ECG QT Interval 414 ms MUSE ECG QTC Interval 474 ms MUSE ECG R [place] 229 degrees MUSE ECG T Wave [place] 59 degrees MUSE ECG Diagnosis Sinus rhythm with premature supraventricular complexes MUSE ECG Diagnosis Right bundle branch block MUSE ECG Diagnosis Abnormal ECG MUSE ECG Diagnosis MUSE ECG Diagnosis Confirmed by Bert Pierre ([id number]) on 02/25/2025 2:37:14 PM MUSE ECG 02/25/2025 12:2 7 PM EDT 02/25/2025 2:37 PM EDT us Ludy Hill MD ECG ORDERABLES Final Result Performing Organization Address [facility] de Phone Number MUSE ECG * (ABNORMAL) POCT glucose meter (02/25/2025 8:21 AM EDT) [facility] POCT Glucose 128(H) 74 - 99 mg/dL [...] Comment 02/25/2025 8:22 AM EDT [facility] Wheel Cutter ID Bassem Jay 02/25/2025 8:22 AM EDT [facility] LAB Device ID [id number] 02/25/2025 8:22 AM EDT [facility] Specimen Type POC Capillary 02/25/2025 8:22 AM EDT [facility] Blood Capillary blood specimen / Unknown 02/25/2025 8:21 AM EDT 02/25/2025 8:22 AM EDT Luda Ralph MD LAB POINT OF CARE TE ST DOCKED DEVICE UNSOLICITED RESULTS Final Result Performing Organization Address [facility] Phone Number [facility] [address] [place] [address] * (ABNORMAL) Cystatin C (02/25/2025 1:36 AM EDT) [facility] Cystatin C 2.37(H) 0.61 - 0.95 mg/L 02/25/2025 2:27 AM EDT [facility] Blood Venous blood specimen / Unknown Venipuncture / Unknown 02/25/2025 1:36 AM EDT 02/25/2025 1:57 AM EDT Luda Ralph MD LAB BLOOD ORDERABLES Final R esult Performing Organization Address [facility] Co de Phone Number [facility] [address] [place] [address] * (ABNORMAL) Basic Metabolic Panel, Plasma (02/25/2025 1:36 AM EDT) Glucose, Plasma 95 74 - 99 mg/dL 02/25/2025 2:27 AM EDT [facility] BUN, Plasma 34(H) 8 - 23 mg/dL 02/25/2025 2:27 AM EDT [facility] Creatinine, Plasma 1.62(H) 0.60 - 1.10 mg/dL 02/25/2025 2:27 AM EDT [facility] BUN/Creatinine Ratio 21 02/25/2025 2:27 AM EDT [facility] Sodium, Plasma 134(L) 136 - 145 mmol/L 02/25/2025 2:27 AM EDT [facility] Potassium, Plasma 3.9 3.6 - 4.9 mmol/L 02/25/2025 2:27 AM EDT [facility] Chloride, Plasma 97 97 - 107 mmol/L 02/25/2025 2:27 AM EDT [facility] CO2, Plasma 23 22 - 29 mmol/L 02/25/2025 2:27 AM EDT [facility] Anion Gap 14 6 - 16 mmol/L 02/25/2025 2:27 AM EDT [facility] Total Calcium, Plasma 8.9 8.9 - 10.2 mg/dL 02/25/2025 2:27 AM EDT [facility] eGFRcr 35.1 mL/min/1.7 3m*2 02/25/2025 2:27 AM EDT [facility] Comment:Reported eGFRcr in m L/min/1.73m2 is based the CKD-EPI 2020 equation that does not use a race coefficient. Blood Venous blood specimen / Unknown Venipuncture / Unknown 02/25/2025 1:36 AM EDT 02/25/2025 1:57 AM EDT us Luda Ralph MD LAB BLOOD ORDERABLES Final R esult [facility] [address] [place] [address] * (ABNORMAL) POCT glucose meter (02/24/2025 8:21 PM EDT) [facility] POCT Glucose 149(H) 74 - 99 mg/dL 02/24/2025 8:22 PM EDT [facility] Comment:Accuracy of [...] Comment 02/24/2025 8:22 PM EDT [facility] Wheel Cutter ID Daniela Mcbride 02/24/2025 8:22 PM EDT [facility] LAB Device ID [id number] 02/24/2025 8:22 PM EDT [facility] Specimen Type POC Capillary 02/24/2025 8:22 PM EDT [facility] Blood Capillary blood specimen / Unknown 02/24/2025 8:21 PM EDT 02/24/2025 8:22 PM EDT Luda Ralph MD LAB POINT OF CARE TE ST DOCKED DEVICE UNSOLICITED RESULTS Final Result Performing Organization Address City/State/[facility] Co de Phone Number [facility]ARE [facility] [address] [place] [address] * POCT glucose meter (02/24/2025 5:55 PM EDT) [facility] POCT Glucose 93 74 - 99 mg/dL [...] 02/24/2025 5:56 PM EDT [facility] Wheel Cutter ID Delroy Bernal 02/24/2025 5:56 PM EDT [facility] Device ID [id number] 02/24/2025 5:56 PM EDT [facility] Specimen Type POC Capillary 02/24/2025 5:56 PM EDT [facility] Blood Capillary blood specimen / Unknown 02/24/2025 5:55 PM EDT 02/24/2025 5:56 PM EDT Luda Ralph MD LAB POINT OF CARE TE ST DOCKED DEVICE UNSOLICITED RESULTS Final Result Performing Organization Address City/[facility] Co de Phone Number [facility] [address] [place] [address] * (ABNORMAL) POCT glucose meter (02/24/2025 11:26 AM EDT) [facility] POCT Glucose 128(H) 74 - 99 mg/dL [...] 02/24/2025 11:27 AM EDT [facility] Wheel Cutter ID Delroy Bernal 02/24/2025 11:27 AM EDT [facility] LAB Device ID [id number] 02/24/2025 11:27 AM EDT [facility] Specimen Type POC Capillary 02/24/2025 11:27 AM EDT [facility] Blood Capillary blood specimen / Unknown 02/24/2025 11:26 AM EDT 02/24/2025 11:27 AM EDT us Luda Ralph MD LAB POINT OF CARE TE ST DOCKED DEVICE UNSOLICITED RESULTS Final Result Performing Organization Address City/[facility]/ZIP Co de Phone Number [facility] [address] [place] [address] * DE CRITICAL CARE, E/M 30-74 MINUTES (02/24/2025 7:08 [...] - 99 mg/dL 02/24/2025 5:22 AM EDT [facility] Comment:Accuracy of a glucos e result [...] for testing. Comment 02/24/2025 5:22 AM EDT [facility] Wheel Cutter ID Daniela Mcbride 02/24/2025 5:22 AM EDT [facility] Device ID [id number] 02/24/2025 5:22 AM EDT [facility] Specimen Type POC Capillary 02/24/2025 5:22 AM EDT [facility] Blood Capillary blood specimen / Unknown 02/24/2025 5:20 AM EDT 02/24/2025 5:22 AM EDT us Luda Ralph MD LAB POINT OF CARE TE ST DOCKED DEVICE UNSOLICITED RESULTS Final Result Performing Organization Address City/[facility]/ZIP Co de Phone Number [facility] [address] [place] [address] * (ABNORMAL) Cystatin C (02/24/2025 1:01 AM EDT) Pathologist [facility] Cystatin C 2.5(H) 0.61 - 0.95 mg/L 02/24/2025 10:16 AM EDT [facility] Blood Venous blood specimen / Unknown Venipuncture / Unknown 02/24/2025 1:01 AM EDT 02/24/2025 1:06 AM EDT Luda Ralph MD LAB BLOOD ORDERABLES Final R esult Performing Organization Address City/[facility]/ZIP Co de Phone Number [facility] [address] [place] [address] * (ABNORMAL) CBC and Differential (02/24/2025 1:01 AM EDT) [facility] WBC Count 9.39 3.70 - 10.30 10*3/uL LAB HEMATOLOGY METHOD 02/24/2025 1:16 AM EDT [facility] RBC Count 3.53(L) 3.90 - 5.20 10*6/uL LAB HEMATOLOGY METHOD 02/24/2025 1:16 AM EDT [facility] HGB 9.1(L) 11.2 - 15.7 g/dL LAB HEMATOLOGY METHOD 02/24/2025 1:16 AM EDT [facility] HCT 28.3(L) 34.0 - 45.0 % LAB HEMATOLOGY METHOD 02/24/2025 1:16 AM EDT [facility] Platelet Count 315 155 - 369 10*3/uL LAB HEMATOLOGY METHOD 02/24/2025 1:16 AM EDT [facility] MCV 80 79 - 98 fL LAB HEMATOLOGY METHOD 02/24/2025 1:16 AM EDT [facility] MCH 25.8(L) 26.0 - 32.0 pg LAB HEMATOLOGY METHOD 02/24/2025 1:16 AM EDT [facility] MCHC 32.2 30.7 - 35.5 g/dL LAB HEMATOLOGY METHOD 02/24/2025 1:16 AM EDT [facility] RDW 15.2(H) 11.5 - 14.5 % LAB HEMATOLOGY METHOD 02/24/2025 1:16 AM EDT [facility] MPV 9.3 8.8 - 12.5 fL LAB HEMATOLOGY METHOD 02/24/2025 1:16 AM EDT [facility] nRBC 0.0 <=0.0 per 100 WBCs LAB HEMATOLOGY METHOD 02/24/2025 1:16 AM EDT [facility] Differential Type Automated LAB HEMATOLOGY METHOD 02/24/2025 1:16 AM EDT [facility] Neutrophils % 71 % LAB HEMATOLOGY METHOD 02/24/2025 1:16 AM EDT [facility] Lymphocytes % 15 % LAB HEMATOLOGY METHOD 02/24/2025 1:16 AM EDT [facility] Monocytes % 13 % LAB HEMATOLOGY METHOD 02/24/2025 1:16 AM EDT [facility] Eosinophils % 0 % LAB HEMATOLOGY METHOD 02/24/2025 1:16 AM EDT [facility] Basophils % 0 % LAB HEMATOLOGY METHOD 02/24/2025 1:16 AM EDT [facility] Immature Granulocytes % 1 % LAB HEMATOLOGY METHOD 02/24/2025 1:16 AM EDT [facility] Neutrophils Absolute 6.64(H) 1.60 - 6.10 10*3/uL LAB HEMATOLOGY METHOD 02/24/2025 1:16 AM EDT [facility] Lymphocytes Absolute 1.40 1.20 - 3.90 10*3/uL LAB HEMATOLOGY METHOD 02/24/2025 1:16 AM EDT [facility] Monocytes Absolute 1.25(H) 0.30 - 0.90 10*3/uL LAB HEMATOLOGY METHOD 02/24/2025 1:16 AM EDT [facility] Eosinophils Absolute 0.02 0.00 - 0.50 10*3/uL LAB HEMATOLOGY METHOD 02/24/2025 1:16 AM EDT [facility] Basophils Absolute 0.02 0.00 - 0.10 10*3/uL LAB HEMATOLOGY METHOD 02/24/2025 1:16 AM EDT [facility] Immature Granulocytes Absolute 0.06 0.00 - 0.06 10*3/uL LAB HEMATOLOGY METHOD 02/24/2025 1:16 AM EDT [facility] Blood Venous blood specimen / Unknown Venipuncture / Unknown 02/24/2025 1:01 AM EDT 02/24/2025 1:06 AM EDT Narrative [facility] - 02/24/2025 1:16 AM EDT Therapeutic decision making should be based on absolute values, rather than percentages. us Luda Ralph MD LAB BLOOD ORDERABLES Final R esult [facility] [address] [place] [address] * (ABNORMAL) Comprehensive metabolic panel (02/24/2025 1:01 AM EDT) Glucose, Plasma 152(H) 74 - 99 mg/dL 02/24/2025 1:44 AM EDT [facility] BUN, Plasma 40(H) 8 - 23 mg/dL 02/24/2025 1:44 AM EDT [facility] Creatinine, Plasma 2.04(H) 0.60 - 1.10 mg/dL 02/24/2025 1:44 AM EDT [facility] BUN/Creatinine Ratio 20 02/24/2025 1:44 AM EDT [facility] Sodium, Plasma 132(L) 136 - 145 mmol/L 02/24/2025 1:44 AM EDT [facility] Potassium, Plasma 4.9 3.6 - 4.9 mmol/L 02/24/2025 1:44 AM EDT [facility] Chloride, Plasma 97 97 - 107 mmol/L 02/24/2025 1:44 AM EDT [facility] CO2, Plasma 22 22 - 29 mmol/L 02/24/2025 1:44 AM EDT [facility] Anion Gap 13 6 - 16 mmol/L 02/24/2025 1:44 AM EDT [facility] Total Calcium, Plasma 8.6(L) 8.9 - 10.2 mg/dL 02/24/2025 1:44 AM EDT [facility] Total Protein 6.9 6.3 - 7.9 g/dL 02/24/2025 1:44 AM EDT [facility] Albumin, Plasma 3.3(L) 3.5 - 5.2 g/dL 02/24/2025 1:44 AM EDT [facility] AST, Plasma 16 10 - 35 U/L 02/24/2025 1:44 AM EDT [facility] Comment:Hemolyzed, result ma y be falsely increased. ALT, Plasma 15 10 - 35 U/L 02/24/2025 1:44 AM EDT [facility] Alkaline Phosphatase, Plasma 105 46 - 142 U/L 02/24/2025 1:44 AM EDT [facility] Total Bilirubin, Plasma <0.2(L) 0.2 - 1.1 mg/dL 02/24/2025 1:44 AM EDT [facility] eGFRcr 26.6 mL/min/1.7 3m*2 02/24/2025 1:44 AM EDT [facility] Comment:Reported eGFRcr in m L/min/1.73m2 is based the CKD-EPI 2020 equation that does not use a race coefficient. Blood Venous blood specimen / Unknown Venipuncture / Unknown 02/24/2025 1:01 AM EDT 02/24/2025 1:06 AM EDT us Luda Ralph MD LAB BLOOD ORDERABLES Final R esult [facility] [address] [place] [address] * (ABNORMAL) Ionized calcium, whole blood (02/24/2025 1:01 AM EDT) Ionized Calcium, Whole Blood 4.4(L) 4.6 - 5.1 mg/dL LAB HEMATOLOGY METHOD 02/24/2025 1:14 AM EDT [facility] Blood Venous blood specimen / Unknown Venipuncture / Unknown 02/24/2025 1:01 AM EDT 02/24/2025 1:13 AM EDT us Luda Ralph MD LAB BLOOD ORDERABLES Final R esult [facility] [address] [place] [address] * Phosphorus (02/24/2025 1:01 AM EDT) Phosphorus, Plasma 3.0 2.5 - 4.5 mg/dL 02/24/2025 1:44 AM EDT [facility] Blood Venous blood specimen / Unknown Venipuncture / Unknown 02/24/2025 1:01 AM EDT 02/24/2025 1:06 AM EDT Luda Ralph MD LAB BLOOD ORDERABLES Final R esult Performing Organization Address [facility] Co de Phone Number [facility] [address] [place] [address] * Magnesium, Plasma (02/24/2025 1:01 AM EDT) Magnesium, Plasma 2.2 1.9 - 2.4 mg/dL 02/24/2025 1:44 AM EDT [facility] Blood Venous blood specimen / Unknown Venipuncture / Unknown 02/24/2025 1:01 AM EDT 02/24/2025 1:06 AM EDT Luda Ralph MD LAB BLOOD ORDERABLES Final R esult Performing Organization Address [facility] Co de Phone Number [facility] [address] [place] [address] * (ABNORMAL) Procalcitonin (02/24/2025 1:01 AM EDT) Procalcitonin, Plasma 0.12(H) <0.09 ng/mL 02/24/2025 1:44 AM EDT [facility] Blood Venous blood specimen / Unknown Venipuncture / Unknown 02/24/2025 1:01 AM EDT 02/24/2025 1:06 AM EDT Narrative [facility] - 02/24/2025 1:44 AM [...] predict 28 day mortality risk. Please consult [email or web address] for more information. Test performed at [facility]. us Luda Ralph MD LAB BLOOD ORDERABLES Final R esult [facility] [address] [place] [address] * (ABNORMAL) Blood gas panel, venous (02/24/2025 1:01 AM EDT) pH, Venous 7.43 7.32 - 7.43 LAB HEMATOLOGY METHOD 02/24/2025 1:19 AM EDT [facility] pCO2, Venous 40 37 - 52 mmHg LAB HEMATOLOGY METHOD 02/24/2025 1:19 AM EDT [facility] pO2, Venous 143(H) 25 - 40 mmHg LAB HEMATOLOGY METHOD 02/24/2025 1:19 AM EDT [facility] SO2, Measured, Venous 98(H) 65 - 80 % LAB HEMATOLOGY METHOD 02/24/2025 1:19 AM EDT [facility] Base Excess, Venous 1.9 -2.0 - 3.0 mmol/L LAB HEMATOLOGY METHOD 02/24/2025 1:19 AM EDT [facility] Bicarbonate, Calculated, Venous 27(H) 22 - 26 mmol/L LAB HEMATOLOGY METHOD 02/24/2025 1:19 AM EDT [facility] Hematocrit, Whole Blood 27.7(L) 34.0 - 45.0 % LAB HEMATOLOGY METHOD 02/24/2025 1:19 AM EDT [facility] Sodium, Whole Blood 132(L) 136 - 145 mmol/L LAB HEMATOLOGY METHOD 02/24/2025 1:19 AM EDT [facility] Potassium, Whole Blood 4.3 3.6 - 4.9 mmol/L LAB HEMATOLOGY METHOD 02/24/2025 1:19 AM EDT [facility] Chloride, Whole Blood 99 97 - 107 mmol/L LAB HEMATOLOGY METHOD 02/24/2025 1:19 AM EDT [facility] Glucose, Whole Blood 154(H) 74 - 99 mg/dL LAB HEMATOLOGY METHOD 02/24/2025 1:19 AM EDT [facility] Lactate, Venous, Whole Blood 0.9 0.5 - 2.2 mmol/L LAB HEMATOLOGY METHOD 02/24/2025 1:19 AM EDT [facility] Ionized Calcium, Whole Blood 4.2(L) 4.6 - 5.1 mg/dL LAB HEMATOLOGY METHOD 02/24/2025 1:19 AM EDT [facility] Blood Venous blood specimen / Unknown Venipuncture / Unknown 02/24/2025 1:01 AM EDT 02/24/2025 1:13 AM EDT Luda Ralph MD LAB BLOOD ORDERABLES Final R esult [facility] [address] [place] [address] * (ABNORMAL) POCT glucose meter (02/24/2025 1:00 [...] Comment 02/24/2025 1:02 AM EDT [facility] Wheel Cutter ID Daniela Mcbride 02/24/2025 1:02 AM EDT [facility] Device ID [id number] 02/24/2025 1:02 AM EDT [facility] Specimen Type POC Capillary 02/24/2025 1:02 AM EDT [facility] Blood Capillary blood specimen / Unknown 02/24/2025 1:00 AM EDT 02/24/2025 1:02 AM EDT Luda Ralph MD LAB POINT OF CARE TE ST DOCKED DEVICE UNSOLICITED RESULTS Final Result Performing Organization Address [facility] de Phone Number [facility] [address] [place] [address] * (ABNORMAL) POCT glucose meter (02/23/2025 5:07 [...] Comment 02/23/2025 5:08 PM EDT [facility] Wheel Cutter ID Temi Mao 02/23/2025 5:08 PM EDT [facility] Device ID [id number] 02/23/2025 5:08 PM EDT [facility] Specimen Type POC Capillary 02/23/2025 5:08 PM EDT [facility] Blood Capillary blood specimen / Unknown 02/23/2025 5:07 PM EDT 02/23/2025 5:08 PM EDT Luda Ralph MD LAB POINT OF CARE TE ST DOCKED DEVICE UNSOLICITED RESULTS Final Result Performing Organization Address City/[facility] Co de Phone Number [facility] [address] [place] [address] * Sodium, urine, random (02/23/2025 3:12 PM EDT) Sodium, Urine 31 mmol/L 02/23/2025 4:03 PM EDT [facility] Urine Urine specimen from urinary conduit / Unknown Non-blood Collection / Unknown 02/23/2025 3:12 PM EDT 02/23/2025 3:24 PM EDT us Luda Ralph MD LAB URINE ORDERABLES Final R esult Performing Organization Address City/[facility]/ZIP Co de Phone Number [facility] [address] [place] [address] * Osmolality, urine (02/23/2025 3:12 PM EDT) Osmolality, Urine 408 50 - 1,200 mOsm/kg 02/23/2025 3:59 PM EDT [facility] Urine Urine specimen from urinary conduit / Unknown Non-blood Collection / Unknown 02/23/2025 3:12 PM EDT 02/23/2025 3:23 PM EDT us Luda Ralph MD LAB URINE ORDERABLES Final R esult Performing Organization Address [facility] Co de Phone Number [facility] [address] [place] [address] * Osmolality (02/23/2025 3:04 PM EDT) Osmolality, Serum 289 280 - 301 mOsm/Kg 02/23/2025 4:11 PM EDT [facility] Blood Venous blood specimen / Unknown Venipuncture / Unknown 02/23/2025 3:04 PM EDT 02/23/2025 3:13 PM EDT us Luda Ralph MD LAB BLOOD ORDERABLES Final R esult Performing Organization Address City/[facility]/ZIP Co de Phone Number [facility] [address] [place] [address] * (ABNORMAL) Cystatin C (02/23/2025 3:04 PM EDT) Cystatin C 2.32(H) 0.61 - 0.95 mg/L 02/23/2025 3:44 PM EDT [facility] Blood Venous blood specimen / Unknown Venipuncture / Unknown 02/23/2025 3:04 PM EDT 02/23/2025 3:13 PM EDT us Luda Ralph MD LAB BLOOD ORDERABLES Final R esult Performing Organization Address City/[facility] Co de Phone Number [facility] [address] [place] [address] * (ABNORMAL) Sodium (02/23/2025 3:04 PM EDT) [facility] Sodium, Plasma 129(L) 136 - 145 mmol/L 02/23/2025 3:44 PM EDT [facility] Blood Venous blood specimen / Unknown Venipuncture / Unknown 02/23/2025 3:04 PM EDT 02/23/2025 3:13 PM EDT Luda Ralph MD LAB BLOOD ORDERABLES Final R esult Performing Organization Address [facility] de Phone Number [facility] [address] [place] [address] * (ABNORMAL) POCT glucose meter (02/23/2025 11:43 AM EDT) [facility] POCT Glucose 222(H) 74 - 99 mg/dL [...] for testing. Comment 02/23/2025 11:44 AM EDT [facility] Wheel Cutter ID [email or web address] 02/23/2025 11:44 AM EDT [facility] Device ID [id number] 02/23/2025 11:44 AM EDT [facility] Specimen Type POC Capillary 02/23/2025 11:44 AM EDT [facility] Blood Capillary blood specimen / Unknown 02/23/2025 11:43 AM EDT 02/23/2025 11:44 AM EDT us Luda Ralph MD LAB POINT OF CARE TE ST DOCKED DEVICE UNSOLICITED RESULTS Final Result Performing Organization Address [facility]/ZIP Co de Phone Number [facility] [address] [place] [address] * Streptococcus pneumoniae and Legionella Urinary Antigen (02/23/2025 11:05 AM EDT) Legionella pneumophila serogroup 1 Antigen Result (Urine) Negative Negative 02/24/2025 7:01 AM EDT [facility] Streptococcus pneumoniae Antigen Result (Urine) Negative Negative 02/24/2025 7:01 AM EDT [facility] Urine Urine specimen obtained by clean catch procedure / Unknown Non-blood Collection / Unknown 02/23/2025 11:05 AM EDT 02/23/2025 11:16 AM EDT us Luda Ralph MD LAB MICROBIOLOGY - GENERAL O RDERABLES Final Result [facility] [address] [place] [address] * DE CRITICAL CARE, E/M 30-74 MINUTES (02/23/2025 9:10 [...] Plasma 25.9 ug/mL 02/23/2025 9:20 AM EDT [facility] Blood Venous blood specimen / Unknown Venipuncture / Unknown 02/23/2025 8:34 AM EDT 02/23/2025 8:50 AM EDT Luda Ralph MD LAB BLOOD ORDERABLES Final R esult Performing Organization Address City/[facility]/ZIP Co de Phone Number [facility] [address] [place] [address] * (ABNORMAL) Sodium (02/23/2025 8:34 AM EDT) Sodium, Plasma 127(L) 136 - 145 mmol/L 02/23/2025 9:20 AM EDT [facility] Blood Venous blood specimen / Unknown Venipuncture / Unknown 02/23/2025 8:34 AM EDT 02/23/2025 8:50 AM EDT Luda Ralph MD LAB BLOOD ORDERABLES Final R esult Performing Organization Address City/[facility]/ZIP Co de Phone Number [facility] [address] [place] [address] * (ABNORMAL) Blood gas panel, venous (02/23/2025 8:34 AM EDT) pH, Venous 7.39 7.32 - 7.43 LAB HEMATOLOGY METHOD 02/23/2025 8:52 AM EDT [facility] pCO2, Venous 44 37 - 52 mmHg LAB HEMATOLOGY METHOD 02/23/2025 8:52 AM EDT [facility] pO2, Venous 43(H) 25 - 40 mmHg LAB HEMATOLOGY METHOD 02/23/2025 8:52 AM EDT [facility] SO2, Measured, Venous 77 65 - 80 % LAB HEMATOLOGY METHOD 02/23/2025 8:52 AM EDT [facility] Base Excess, Venous 1.6 -2.0 - 3.0 mmol/L LAB HEMATOLOGY METHOD 02/23/2025 8:52 AM EDT [facility] Bicarbonate, Calculated, Venous 27(H) 22 - 26 mmol/L LAB HEMATOLOGY METHOD 02/23/2025 8:52 AM EDT [facility] Hematocrit, Whole Blood 27.4(L) 34.0 - 45.0 % LAB HEMATOLOGY METHOD 02/23/2025 8:52 AM EDT [facility] Sodium, Whole Blood 128(L) 136 - 145 mmol/L LAB HEMATOLOGY METHOD 02/23/2025 8:52 AM EDT [facility] Potassium, Whole Blood 4.7 3.6 - 4.9 mmol/L LAB HEMATOLOGY METHOD 02/23/2025 8:52 AM EDT [facility] Chloride, Whole Blood 93(L) 97 - 107 mmol/L LAB HEMATOLOGY METHOD 02/23/2025 8:52 AM EDT [facility] Glucose, Whole Blood 242(H) 74 - 99 mg/dL LAB HEMATOLOGY METHOD 02/23/2025 8:52 AM EDT [facility] Lactate, Venous, Whole Blood 1.1 0.5 - 2.2 mmol/L LAB HEMATOLOGY METHOD 02/23/2025 8:52 AM EDT [facility] Ionized Calcium, Whole Blood 4.6 4.6 - 5.1 mg/dL LAB HEMATOLOGY METHOD 02/23/2025 8:52 AM EDT [facility] Blood Venous blood specimen / Unknown Venipuncture / Unknown 02/23/2025 8:34 AM EDT 02/23/2025 8:50 AM EDT us Luda Ralph MD LAB BLOOD ORDERABLES Final R esult [facility] [address] [place] [address] * (ABNORMAL) POCT glucose meter (02/23/2025 5:13 AM EDT) POCT Glucose 255(H) 74 - 99 mg/dL 02/23/2025 5:14 AM EDT [facility] Comment:Accuracy of a glucos [...] Comment 02/23/2025 5:14 AM EDT [facility] Wheel Cutter ID Daniela Mcbride 02/23/2025 5:14 AM EDT [facility] LAB Device ID [id number] 02/23/2025 5:14 AM EDT [facility] Specimen Type POC Capillary 02/23/2025 5:14 AM EDT [facility] Blood Capillary blood specimen / Unknown 02/23/2025 5:13 AM EDT 02/23/2025 5:14 AM EDT us Luda Ralph MD LAB POINT OF CARE TE ST DOCKED DEVICE UNSOLICITED RESULTS Final Result Performing Organization Address City/State/[facility] Co de Phone Number [facility] [address] [place] [address] * (ABNORMAL) POCT glucose meter (02/23/2025 2:11 AM EDT) [facility] POCT Glucose 224(H) 74 - 99 mg/dL [...] Comment 02/23/2025 2:12 AM EDT [facility] Wheel Cutter ID Daniela Mcbride 02/23/2025 2:12 AM EDT [facility] Device ID [id number] 02/23/2025 2:12 AM EDT [facility] Specimen Type POC Capillary 02/23/2025 2:12 AM EDT [facility] Blood Capillary blood specimen / Unknown 02/23/2025 2:11 AM EDT 02/23/2025 2:12 AM EDT us Luda Ralph MD LAB POINT OF CARE TE ST DOCKED DEVICE UNSOLICITED RESULTS Final Result [facility] [address] [place] [address] * (ABNORMAL) Methicillin Resistant Staphylococcus aureus (MRSA) by PCR (02/23/2025 2:05 AM EDT) Pathologist [facility] Methicillin Resistant Staphylococcus aureus (MRSA) by PCR Detected( A) Not Detected 02/23/2025 4:[address] [facility] Swab Both anterior nares / Unknown Non-blood Collection / Unknown 02/23/2025 2:05 AM EDT 02/23/2025 3:06 AM EDT Narrative [facility] - 02/23/2025 4:19 AM [...] MICROBIOLOGY - GENERAL O RDERABLES Final Result [facility] [address] [place] [address] * (ABNORMAL) Nasopharyngeal Respiratory Panel (02/23/2025 2:05 AM EDT) [facility] Human Rhinovirus/Ent erovirus PCR Result Detected( A) Not Detected 02/23/2025 5:[address] [facility] Swab Nasopharyngeal structure / Unknown Non-blood Collection / Unknown 02/23/2025 2:05 AM EDT 02/23/2025 3:06 AM EDT Narrative [facility] - 02/23/2025 5:07 AM [...] Respiratory PCR Panel is performed using the [employer] ePlex instrument. This test is FDA approved for use with Nasopharyngeal swabs only. This test is used for clinical purposes. It should not be regarded as investigational or for research. [facility] Clinical Microbiology Laboratory is certified under the Clinical Laboratory Improvement Amendments of 1988 (CLIA-88) as qualified to perform high complexity clinical laboratory testing. Luda Ralph MD LAB MICROBIOLOGY - GENERAL O RDERABLES Final Result Performing Organization Address [facility]/[place] [address] * Anti Xa Level Low Molecular Weight (02/23/2025 2:04 AM EDT) Anti Xa Level Low Molecular Weight Heparin 1.12 <2.00 IU/mL LAB COAGULATION METHOD 02/23/2025 2:44 AM EDT [facility] Blood Venous blood specimen / Unknown Venipuncture / Unknown 02/23/2025 2:04 AM EDT 02/23/2025 2:24 AM EDT Narrative [facility] - 02/23/2025 2:44 AM EDT Therapeutic Range: LMWH enoxaparin 1mg/kg/dose, 12hrs - peak (3-5 hours after dose): 0.5 - 1.0 IU/mL LMWH enoxaparin 1.5mg/kg/dose, 24hrs - peak (3-5 hours after dose): 1.0 - 2.0 IU/mL LMWH enoxaparin prophylaxis: Not established Luda Ralph MD LAB BLOOD ORDERABLES Final R esult Performing Organization Address [facility] [place] [address] * (ABNORMAL) Troponin T, High Sensitivity, 2 Hour, Plasma (02/23/2025 2:04 AM EDT) Troponin T, High Sensitivity, 2 Hour 37(H) <14 ng/L 02/23/2025 2:52 AM EDT [facility] Troponin Delta Interpretation Not Calculated 02/23/2025 2:52 AM EDT [facility] Comment:Specimen not collect ed within acceptable timeframe. Delta will not be calculated. Blood Venous blood specimen / Unknown Venipuncture / Unknown 02/23/2025 2:04 AM EDT 02/23/2025 2:24 AM EDT Luda Ralph MD LAB BLOOD ORDERABLES Final R esult Performing Organization Address [facility] Co de Phone Number [facility] [address] [place] [address] * (ABNORMAL) Sodium (02/23/2025 2:04 AM EDT) Sodium, Plasma 125(L) 136 - 145 mmol/L 02/23/2025 2:45 AM EDT [facility] Blood Venous blood specimen / Unknown Venipuncture / Unknown 02/23/2025 2:04 AM EDT 02/23/2025 2:24 AM EDT Luda Ralph MD LAB BLOOD ORDERABLES Final R esult Performing Organization Address City/[facility] Co de Phone Number [facility] [address] [place] [address] * (ABNORMAL) Blood gas panel, venous (02/23/2025 2:04 AM EDT) pH, Venous 7.39 7.32 - 7.43 LAB HEMATOLOGY METHOD 02/23/2025 2:29 AM EDT [facility] pCO2, Venous 43 37 - 52 mmHg LAB HEMATOLOGY METHOD 02/23/2025 2:29 AM EDT [facility] pO2, Venous 71(H) 25 - 40 mmHg LAB HEMATOLOGY METHOD 02/23/2025 2:29 AM EDT [facility] SO2, Measured, Venous 94(H) 65 - 80 % LAB HEMATOLOGY METHOD 02/23/2025 2:29 AM EDT [facility] Base Excess, Venous 0.7 -2.0 - 3.0 mmol/L LAB HEMATOLOGY METHOD 02/23/2025 2:29 AM EDT [facility] Bicarbonate, Calculated, Venous 26 22 - 26 mmol/L LAB HEMATOLOGY METHOD 02/23/2025 2:29 AM EDT [facility] Hematocrit, Whole Blood 26.1(L) 34.0 - 45.0 % LAB HEMATOLOGY METHOD 02/23/2025 2:29 AM EDT [facility] Sodium, Whole Blood 127(L) 136 - 145 mmol/L LAB HEMATOLOGY METHOD 02/23/2025 2:29 AM EDT [facility] Potassium, Whole Blood 4.7 3.6 - 4.9 mmol/L LAB HEMATOLOGY METHOD 02/23/2025 2:29 AM EDT [facility] Chloride, Whole Blood 93(L) 97 - 107 mmol/L LAB HEMATOLOGY METHOD 02/23/2025 2:29 AM EDT [facility] Glucose, Whole Blood 221(H) 74 - 99 mg/dL LAB HEMATOLOGY METHOD 02/23/2025 2:29 AM EDT [facility] Lactate, Venous, Whole Blood 0.9 0.5 - 2.2 mmol/L LAB HEMATOLOGY METHOD 02/23/2025 2:29 AM EDT [facility] Ionized Calcium, Whole Blood 3.7(L) 4.6 - 5.1 mg/dL LAB HEMATOLOGY METHOD 02/23/2025 2:29 AM EDT [facility] Blood Venous blood specimen / Unknown Venipuncture / Unknown 02/23/2025 2:04 AM EDT 02/23/2025 2:25 AM EDT Luda Rlaph MD LAB BLOOD ORDERABLES Final R esult [facility] [address] [place] [address] * Vancomycin, random (02/23/2025 12:05 AM EDT) Vancomycin, Random, Plasma <4.0 ug/mL 02/23/2025 12:44 AM EDT [facility] Blood Venous blood specimen / Unknown Venipuncture / Unknown 02/23/2025 12:05 AM EDT 02/23/2025 12:16 AM EDT us Luda Ralph MD LAB BLOOD ORDERABLES Final R esult Performing Organization Address City/[facility]/ZIP Co de Phone Number [facility] [address] [place] [address] * (ABNORMAL) Sodium (02/23/2025 12:05 AM EDT) Sodium, Plasma 127(L) 136 - 145 mmol/L 02/23/2025 12:44 AM EDT [facility] Blood Venous blood specimen / Unknown Venipuncture / Unknown 02/23/2025 12:05 AM EDT 02/23/2025 12:17 AM EDT us Luda Ralph MD LAB BLOOD ORDERABLES Final R esult Performing Organization Address [facility] Co de Phone Number [facility] [address] [place] [address] * (ABNORMAL) Blood gas panel, venous (02/23/2025 12:05 AM EDT) pH, Venous 7.33 7.32 - 7.43 LAB HEMATOLOGY METHOD 02/23/2025 12:18 AM EDT [facility] pCO2, Venous 50 37 - 52 mmHg LAB HEMATOLOGY METHOD 02/23/2025 12:18 AM EDT [facility] pO2, Venous 60(H) 25 - 40 mmHg LAB HEMATOLOGY METHOD 02/23/2025 12:18 AM EDT [facility] SO2, Measured, Venous 89(H) 65 - 80 % LAB HEMATOLOGY METHOD 02/23/2025 12:18 AM EDT [facility] Base Excess, Venous 0.3 -2.0 - 3.0 mmol/L LAB HEMATOLOGY METHOD 02/23/2025 12:18 AM EDT [facility] Bicarbonate, Calculated, Venous 27(H) 22 - 26 mmol/L LAB HEMATOLOGY METHOD 02/23/2025 12:18 AM EDT [facility] Hematocrit, Whole Blood 28.9(L) 34.0 - 45.0 % LAB HEMATOLOGY METHOD 02/23/2025 12:18 AM EDT [facility] Sodium, Whole Blood 128(L) 136 - 145 mmol/L LAB HEMATOLOGY METHOD 02/23/2025 12:18 AM EDT [facility] Potassium, Whole Blood 4.7 3.6 - 4.9 mmol/L LAB HEMATOLOGY METHOD 02/23/2025 12:18 AM EDT [facility] Chloride, Whole Blood 93(L) 97 - 107 mmol/L LAB HEMATOLOGY METHOD 02/23/2025 12:18 AM EDT [facility] Glucose, Whole Blood 177(H) 74 - 99 mg/dL LAB HEMATOLOGY METHOD 02/23/2025 12:18 AM EDT [facility] Lactate, Venous, Whole Blood 1.7 0.5 - 2.2 mmol/L LAB HEMATOLOGY METHOD 02/23/2025 12:18 AM EDT [facility] Ionized Calcium, Whole Blood 4.4(L) 4.6 - 5.1 mg/dL LAB HEMATOLOGY METHOD 02/23/2025 12:18 AM EDT [facility] Blood Venous blood specimen / Unknown Venipuncture / Unknown 02/23/2025 12:05 AM EDT 02/23/2025 12:16 AM EDT Luda Ralph MD LAB BLOOD ORDERABLES Final R Memolaneult Performing Organization Address City/[facility]/ZIP Co de Phone Number [facility] [address] [place] [address] * (ABNORMAL) Troponin T, High Sensitivity, 0 Hour Plasma, Reflex to 2 Hour (02/23/2025 12:05 AM EDT) Troponin T, High Sensitivity, 0 Hour 40(H) <14 ng/L 02/23/2025 12:44 AM EDT [facility] Blood Venous blood specimen / Unknown Venipuncture / Unknown 02/23/2025 12:05 AM EDT 02/23/2025 12:17 AM EDT Luda Ralph MD LAB BLOOD ORDERABLES Final R esult [facility] [address] [place] [address] * (ABNORMAL) Phosphorus, Plasma (02/23/2025 12:05 AM EDT) Phosphorus, Plasma 2.4(L) 2.5 - 4.5 mg/dL 02/23/2025 12:44 AM EDT [facility] Blood Venous blood specimen / Unknown Venipuncture / Unknown 02/23/2025 12:05 AM EDT 02/23/2025 12:17 AM EDT Bobby Parra MD LAB BLOOD ORDERABLES Final R esult Performing Organization Address [facility]/ZIP Co de Phone Number [facility] [address] [place] [address] * (ABNORMAL) Magnesium, Plasma (02/23/2025 12:05 AM EDT) Magnesium, Plasma 2.5(H) 1.9 - 2.4 mg/dL 02/23/2025 12:44 AM EDT [facility] Blood Venous blood specimen / Unknown Venipuncture / Unknown 02/23/2025 12:05 AM EDT 02/23/2025 12:17 AM EDT Bobby Parra MD LAB BLOOD ORDERABLES Final R esult Performing Organization Address City/[facility] Co de Phone Number [facility] [address] [place] [address] * (ABNORMAL) Basic Metabolic Panel, Plasma (02/23/2025 12:05 AM EDT) Glucose, Plasma 180(H) 74 - 99 mg/dL 02/23/2025 12:44 AM EDT [facility] BUN, Plasma 42(H) 8 - 23 mg/dL 02/23/2025 12:44 AM EDT [facility] Creatinine, Plasma 2.26(H) 0.60 - 1.10 mg/dL 02/23/2025 12:44 AM EDT [facility] BUN/Creatinine Ratio 19 02/23/2025 12:44 AM EDT [facility] Sodium, Plasma 127(L) 136 - 145 mmol/L 02/23/2025 12:44 AM EDT [facility] Potassium, Plasma 4.9 3.6 - 4.9 mmol/L 02/23/2025 12:44 AM EDT [facility] Chloride, Plasma 91(L) 97 - 107 mmol/L 02/23/2025 12:44 AM EDT [facility] CO2, Plasma 23 22 - 29 mmol/L 02/23/2025 12:44 AM EDT [facility] Anion Gap 13 6 - 16 mmol/L 02/23/2025 12:44 AM EDT [facility] Total Calcium, Plasma 9.0 8.9 - 10.2 mg/dL 02/23/2025 12:44 AM EDT [facility] eGFRcr 23.5 mL/min/1.7 3m*2 02/23/2025 12:44 AM EDT [facility] Comment:Reported eGFRcr in m L/min/1.73m2 is based the CKD-EPI 2020 equation that does not use a race coefficient. Blood Venous blood specimen / Unknown Venipuncture / Unknown 02/23/2025 12:05 AM EDT 02/23/2025 12:17 AM EDT us Bobby Parra MD LAB BLOOD ORDERABLES Final R esult [facility] [address] [place] [address] * (ABNORMAL) POCT glucose meter (02/23/2025 12:04 [...] Comment 02/23/2025 12:06 AM EDT [facility] Wheel Cutter ID Daniela Mcbride 02/23/2025 12:06 AM EDT [facility] Device ID [id number] 02/23/2025 12:06 AM EDT [facility] Specimen Type POC Capillary 02/23/2025 12:06 AM EDT [facility] Blood Capillary blood specimen / Unknown 02/23/2025 12:04 AM EDT 02/23/2025 12:06 AM EDT Luda Ralph MD LAB POINT OF CARE TE ST DOCKED DEVICE UNSOLICITED RESULTS Final Result Performing Organization Address [facility] Co de Phone Number [facility] [address] [place] [address] * (ABNORMAL) Quantitative BAL/PAL/Bronch Wash Culture and Gram StainProtected Alveolar Lavage (02/23/2025 12:00 AM EDT) Pathologist [facility] Culture [id number] CFU/mL Mixed upper respiratory jesus(A) 02/24/2025 12:09 PM EDT [facility] Comment:The organism value f or this result has been updated. These results have been appended to the previously preliminary verified report. Gram Stain Result Numerous Polymorphonuclear leukocytes(A) 02/24/2025 12:09 PM EDT [facility] Gram Stain Result Numerous Gram positive cocci in pairs(A) 02/24/2025 12:09 PM EDT [facility] Gram Stain Result Moderate Gram positive cocci in clusters(A) 02/24/2025 12:09 PM EDT [facility] Gram Stain Result Moderate Gram positive rods(A) 02/24/2025 12:09 PM EDT [facility] Protected Alveolar Lavage (Protected Alveolar Lavage) 02/23/2025 12:00 AM EDT 02/23/2025 1:17 AM EDT Luda Ralph MD LAB MICROBIOLOGY - GENERAL O RDERABLES Final Result Performing Organization Address [facility] Co de Phone Number [facility] [address] [place] [address] * ECG Adult (02/22/2025 11:57 PM EDT) EKG DIAGNOSIS CLASS Abnormal MUSE ECG Ventricular Rate 81 BPM MUSE ECG Atrial Rate 81 BPM MUSE ECG DE Interval 204 ms MUSE ECG QRSD Interval 136 ms MUSE ECG QT Interval 428 ms MUSE ECG QTC Interval 497 ms MUSE ECG P [place] 58 degrees MUSE ECG R [place] -72 degrees MUSE ECG T Wave [place] 47 degrees MUSE ECG Diagnosis Normal sinus rhythm MUSE ECG Diagnosis Left axis deviation MUSE ECG Diagnosis Right bundle branch block MUSE ECG Diagnosis Low voltage chest leads MUSE ECG Diagnosis Abnormal ECG MUSE ECG Diagnosis Compared to last ECG MUSE ECG Diagnosis No significant change was found MUSE ECG Diagnosis Confirmed by Carson Multani ([id number]) on 02/23/2025 11:11:42 AM MUSE ECG 02/22/2025 11:5 7 PM EDT 02/23/2025 11:11 AM EDT us Luda Ralph MD ECG ORDERABLES Final Result MUSE ECG * (ABNORMAL) Procalcitonin (02/22/2025 10:03 PM EDT) Procalcitonin, Plasma 0.21(H) <0.09 ng/mL 02/22/2025 10:48 PM EDT [facility] Blood Venous blood specimen / Unknown Venipuncture / Unknown 02/22/2025 10:03 PM EDT 02/22/2025 10:11 PM EDT Narrative [facility] - 02/22/2025 10:48 PM [...] predict 28 day mortality risk. Please consult [email or web address] for more information. Test performed at [facility]. us Luda Ralph MD LAB BLOOD ORDERABLES Final R esult Performing Organization Address [facility]/ZIP Co de Phone Number [facility] [address] [place] [address] * (ABNORMAL) N-Terminal Probnp (02/22/2025 10:03 PM EDT) N-Terminal, PROBNP, Plasma 1,542(H) 0 - 899 pg/mL 02/22/2025 10:48 PM EDT [facility] Blood Venous blood specimen / Unknown Venipuncture / Unknown 02/22/2025 10:03 PM EDT 02/22/2025 10:11 PM EDT Bobby Parra MD LAB BLOOD ORDERABLES Final R esult Performing Organization Address [facility] Co de Phone Number [facility] [address] [place] [address] * (ABNORMAL) Multi Drug Resistance Test (02/22/2025 10:02 PM EDT) Pathologist [facility] Culture Methicillin-Resist ant Staphylococcus aureus(AA) 02/24/2025 6:58 AM EDT [facility] Swab (Nares and Samantha Rectal) Non-blood Collection / Unknown 02/22/2025 10:02 PM EDT 02/22/2025 10:16 PM EDT Narrative [facility] - 02/24/2025 6:58 AM EDT This test was developed and its performance characteristics determined by the [facility]. Although the media is FDA-approved, it is not FDA-approved for all specimen types submitted. The FDA has determined that such clearance or approval is not necessary. This test is used for surveillance purposes. It should not be regarded as investigational or for research. The [facility] is certified under the Clinical Laboratory Improvement Amendments of 1988 (CLIA-88) as qualified to perform high complexity clinical laboratory testing. Bobby Parra MD LAB MICROBIOLOGY - GENERAL O RDERABLES Final Result Performing Organization Address City/[facility]/ZIP Co de Phone Number [facility] [address] [place] [address] * Sahara auris Surveillance by PCR (02/22/2025 10:02 PM EDT) Sahara auris PCR Result Not Detected Not Detected 02/24/2025 7:[address] [facility] Swab (Axilla and Groin) Non-blood Collection / Unknown 02/22/2025 10:02 PM EDT 02/22/2025 10:16 PM EDT Narrative [facility] - 02/24/2025 7:03 AM EDT This PCR assay was developed and its performance characteristics determined by [facility] as appropriate for clinical purposes. This assay has not been cleared or approved by the FDA, but is performed in a CLIA regulated laboratory that is qualified to perform high-complexity testing. Bobby Parra MD LAB MICROBIOLOGY - GENERAL [place] [address] * (ABNORMAL) Fentanyl Urine Confirm (02/22/2025 10:01 PM EDT) Fentanyl 1(H) <1 ng/mL 02/24/2025 9:[address] [facility] Norfentanyl 2(H) <2 ng/mL 02/24/2025 9:[address] [facility] Urine Urine specimen obtained by clean catch procedure / Unknown Non-blood Collection / Unknown 02/22/2025 10:01 PM EDT 02/22/2025 10:11 PM EDT Narrative [facility] - 02/24/2025 9:18 AM EDT Drug analysis is confirmed by LC-MS/MS (LC Tandem Mass Spectrometry) on Urine specimens. This test was developed and its performance characteristics determined by [facility]. It has not been cleared or approved by the FDA. The laboratory is regulated under CLIA as qualified to perform high-complexity testing. This test is used for clinical purposes. Testing is performed at the [facility]. Luda Morton MD LAB URINE ORDERABLES Final Result Performing Organization Address City/[facility]/ZIP Co de Phone Number [facility] [address] [place] [address] * SEND HECTOR MESSAGE (02/22/2025 10:01 PM EDT) Urine Urine specimen obtained by clean catch procedure / Unknown Non-blood Collection / Unknown 02/22/2025 10:01 PM EDT 02/22/2025 10:14 PM EDT Bobby Parra MD LAB URINE ORDERABLES Final R esult Performing Organization Address City/[facility]/ZIP Co de Phone Number [facility] [address] [place] [address] * (ABNORMAL) Urine Culture (02/22/2025 10:01 PM EDT) Culture 100 CFU/mL Normal Urogenital Jesus(A) 02/24/2025 6:[address] [facility] Urine Urine specimen obtained by clean catch procedure / Unknown Non-blood Collection / Unknown 02/22/2025 10:01 PM EDT 02/22/2025 10:14 PM EDT Bobby Parra MD LAB MICROBIOLOGY - GENERAL O RDERABLES Final Result Performing Organization Address [facility] Co de Phone Number [facility] [address] [place] [address] * Urinalysis Microscopic Examination (02/22/2025 10:01 PM EDT) Urine Urine specimen obtained by clean catch procedure / Unknown Non-blood Collection / Unknown 02/22/2025 10:01 PM EDT 02/22/2025 10:11 PM EDT Bobby Parra MD LAB URINE ORDERABLES Final R esult Performing Organization Address City/[facility]/ZIP Co de Phone Number [facility] [address] [place] [address] * Urine Salmon Panel (02/22/2025 10:01 PM EDT) Extra Sent for Culture 02/23/2025 12:01 AM EDT [facility] Urine Urine specimen obtained by clean catch procedure / Unknown Non-blood Collection / Unknown 02/22/2025 10:01 PM EDT 02/22/2025 10:14 PM EDT us Bobby Parra MD LAB URINE ORDERABLES Final R esult [facility] [address] [place] [address] * (ABNORMAL) Urinalysis with reflex microscopic (Culture NOT Included) (02/22/2025 10:01 PM EDT) Color, Urine Red LAB URINALYSIS - AUTOMATED METHOD 02/22/2025 11:13 PM EDT [facility] Clarity, Urine Cloudy LAB URINALYSIS - AUTOMATED METHOD 02/22/2025 11:13 PM EDT [facility] Spec [place], Urine 1.010 1.005 - 1.030 LAB URINALYSIS - AUTOMATED METHOD 02/22/2025 11:13 PM EDT [facility] pH, Urine 6.5 5.0 - 8.0 LAB URINALYSIS - AUTOMATED METHOD 02/22/2025 11:13 PM EDT [facility] Protein, Urine >=300(A) Negative mg/dL LAB URINALYSIS - AUTOMATED METHOD 02/22/2025 11:13 PM EDT [facility] Glucose, Urine Negative Negative mg/dL LAB URINALYSIS - AUTOMATED METHOD 02/22/2025 11:13 PM EDT [facility] Ketones, Urine Negative Negative mg/dL LAB URINALYSIS - AUTOMATED METHOD 02/22/2025 11:13 PM EDT [facility] Blood, Urine Large(A) Negative LAB URINALYSIS - AUTOMATED METHOD 02/22/2025 11:13 PM EDT [facility] Bilirubin, Urine Small(A) Negative LAB URINALYSIS - AUTOMATED METHOD 02/22/2025 11:13 PM EDT [facility] Urobilinogen, Urine 0.2 0.2 to 1.0 mg/dL LAB URINALYSIS - AUTOMATED METHOD 02/22/2025 11:13 PM EDT [facility] Leukocytes, Urine Large(A) Negative LAB URINALYSIS - AUTOMATED METHOD 02/22/2025 11:13 PM EDT [facility] Nitrite, Urine Negative Negative LAB URINALYSIS - AUTOMATED METHOD 02/22/2025 11:13 PM EDT [facility] RBC, Urine >50(A) 0 to 3 /HPF LAB URINALYSIS - AUTOMATED METHOD 02/22/2025 11:13 PM EDT [facility] WBC, Urine >50(A) 0 to 5 /HPF LAB URINALYSIS - AUTOMATED METHOD 02/22/2025 11:13 PM EDT [facility] Squamous Epithelial Cells 0 - 2 0 to 5 /HPF LAB URINALYSIS - AUTOMATED METHOD 02/22/2025 11:13 PM EDT [facility] Hyaline Casts 0 - 2 0 to 5 /LPF LAB URINALYSIS - AUTOMATED METHOD 02/22/2025 11:13 PM EDT [facility] Bacteria, Urine Negative Negative LAB URINALYSIS - AUTOMATED METHOD 02/22/2025 11:13 PM EDT [facility] Urine Urine specimen obtained by clean catch procedure / Unknown Non-blood Collection / Unknown 02/22/2025 10:01 PM EDT 02/22/2025 10:11 PM EDT Narrative [facility] - 02/22/2025 11:13 PM EDT Urinalysis dipstick results may be inaccurate due to specimen color or an interfering substance in the specimen. us Bobby Parra MD LAB URINE ORDERABLES Final R esult [facility] [address] [place] [address] * Drug abuse screen (02/22/2025 10:01 PM EDT) Amphetamine Screen Urine Negative Cutoff: 500 ng/mL 02/23/2025 12:22 AM EDT [facility] Benzodiazepines Screen Urine Negative Cutoff: 200 ng/mL 02/23/2025 12:22 AM EDT [facility] Cannabinoid Screen Urine Negative Cutoff: 50 ng/mL 02/23/2025 12:22 AM EDT [facility] Cocaine Screen Urine Negative Cutoff: 300 ng/mL 02/23/2025 12:22 AM EDT [facility] Barbiturate Screen Urine Negative Cutoff: 200 ng/mL 02/23/2025 12:22 AM EDT [facility] Opiate Screen Urine Negative Cutoff: 300 ng/mL 02/23/2025 12:22 AM EDT [facility] Methadone Screen Urine Negative Cutoff: 300 ng/mL 02/23/2025 12:22 AM EDT [facility] Buprenorphine Screen Urine Negative Cutoff: 10 ng/mL 02/23/2025 12:22 AM EDT [facility] Fentanyl Screen Urine Presumptive positive. Confirmation by LC-MS/MS to follow. Cutoff: 1 ng/mL 02/23/2025 12:22 AM EDT [facility] Oxycodone Screen Urine Negative Cutoff: 100 ng/mL 02/23/2025 12:22 AM EDT [facility] Urine Urine specimen obtained by clean catch procedure / Unknown Non-blood Collection / Unknown 02/22/2025 10:01 PM EDT 02/22/2025 10:11 PM EDT Luda Morton MD LAB URINE ORDERABLES Final Result [facility] [address] [place] [address] * (ABNORMAL) POCT glucose meter (02/22/2025 9:38 [...] Comment 02/22/2025 9:40 PM EDT [facility] Wheel Cutter ID Shiloh Friedman 02/23/20 9:40 PM EDT [facility] Device ID [id number] 02/22/2025 9:40 PM EDT [facility] Specimen Type POC Capillary 02/22/2025 9:40 PM EDT [facility] Blood Capillary blood specimen / Unknown 02/22/2025 9:38 PM EDT 02/22/2025 9:40 PM EDT Luda Ralph MD LAB POINT OF CARE TE ST DOCKED DEVICE UNSOLICITED RESULTS Final Result [facility] [address] [place] [address] * (ABNORMAL) POCT arterial blood gas gem (02/22/2025 9:05 PM EDT) pH, Arterial 7.45(H) 7.31 - 7.42 02/22/2025 9:06 PM EDT [facility] pCO2, Arterial 37 35 - 48 mm Hg 02/22/2025 9:06 PM EDT [facility] pO2, Arterial 86 >80 mm Hg 02/22/2025 9:06 PM EDT [facility] SO2, Arterial 98 94 - 98 % 02/22/2025 9:06 PM EDT [facility] FIO2 60.0 % 02/22/2025 9:06 PM EDT [facility] Base Excess, Arterial 1.7 -2 - 3 mmol/L 02/22/2025 9:06 PM EDT [facility] HCO3, Arterial 25.7 22 - 26 mmol/L 02/22/2025 9:06 PM EDT [facility] Total Hemoglobin, Arterial, Whole Blood 9.1(L) 11.2 - 15.7 g/dL 02/22/2025 9:06 PM EDT [facility] Hematocrit, Arterial 27.0(L) 34.0 - 45.0 % 02/22/2025 9:06 PM EDT [facility] Sodium, Arterial 125(L) 136 - 145 mmol/L 02/22/2025 9:06 PM EDT [facility] Potassium, Arterial 4.9 3.6 - 4.9 mmol/L 02/22/2025 9:06 PM EDT [facility] Comment:Hemolyzed, result ma y be falsely increased. Chloride, Whole Blood 95(L) 97 - 107 mmol/L 02/22/2025 9:06 PM EDT [facility] Glucose, Arterial 116(H) 74 - 99 mg/dL 02/22/2025 9:06 PM EDT [facility] Ionized Calcium, Arterial 4.8 4.6 - 5.1 mg/dL 02/22/2025 9:06 PM EDT [facility] Lactate, Arterial 0.8 0.5 - 1.6 mmol/L 02/22/2025 9:06 PM EDT [facility] Body Temperature 37.0 Celsius 02/22/2025 9:06 PM EDT [facility] pH, Temp Corrected, Arterial 7.45(H) 7.31 - 7.42 02/22/2025 9:06 PM EDT [facility] pCO2, Temp Corrected, Arterial 37 35 - 48 mm Hg 02/22/2025 9:06 PM EDT [facility] pO2, Temp Corrected, Arterial 86 >80 mm Hg 02/22/2025 9:06 PM EDT [facility] Wheel Cutter ID Slim Morton 02/22/2025 9:06 PM EDT [facility] Blood, Arterial Whole blood specimen / Unknown 02/22/2025 9:05 PM EDT 02/22/2025 9:06 PM EDT Luda Ralph MD LAB POINT OF CARE TE ST DOCKED DEVICE UNSOLICITED RESULTS Final Result Performing Organization Address [facility] Co de Phone Number [facility] [address] [place] [id number] * Blood Culture (Aerobic/Anaerobet Set) (02/22/2025 8:55 PM EDT) Culture No growth at day 5 02/27/2025 10:01 PM EDT [facility] Blood Structure of right hand / Unknown Venipuncture / Unknown 02/22/2025 8:55 PM EDT 02/22/2025 9:29 PM EDT Narrative [facility] - 02/27/2025 10:01 PM EDT Low blood volume submitted, results may be compromised us Luda Morton MD LAB MICROBIOLOGY - GENERAL ORDERABLES Final Result Performing Organization Address City/[facility] Co de Phone Number [facility] [address] [place] [address] * Ionized calcium, serum (02/22/2025 8:36 PM EDT) Pathologist [facility] Ionized Calcium, Serum 4.8 4.6 - 5.3 mg/dL LAB HEMATOLOGY METHOD 02/22/2025 9:42 PM EDT [facility] Blood Venous blood specimen / Unknown Venipuncture / Unknown 02/22/2025 8:36 PM EDT 02/22/2025 8:53 PM EDT us Bobby Parra MD LAB BLOOD ORDERABLES Final R esult [facility] [address] [place] [address] * (ABNORMAL) CBC W/O Differential (02/22/2025 8:36 PM EDT) Pathologist [facility] WBC Count 7.98 3.70 - 10.30 10*3/uL LAB HEMATOLOGY METHOD 02/22/2025 8:44 PM EDT [facility] RBC Count 3.52(L) 3.90 - 5.20 10*6/uL LAB HEMATOLOGY METHOD 02/22/2025 8:44 PM EDT [facility] HGB 9.2(L) 11.2 - 15.7 g/dL LAB HEMATOLOGY METHOD 02/22/2025 8:44 PM EDT [facility] HCT 28.5(L) 34.0 - 45.0 % LAB HEMATOLOGY METHOD 02/22/2025 8:44 PM EDT [facility] Platelet Count 329 155 - 369 10*3/uL LAB HEMATOLOGY METHOD 02/22/2025 8:44 PM EDT [facility] MCV 81 79 - 98 fL LAB HEMATOLOGY METHOD 02/22/2025 8:44 PM EDT [facility] MCH 26.1 26.0 - 32.0 pg LAB HEMATOLOGY METHOD 02/22/2025 8:44 PM EDT [facility] MCHC 32.3 30.7 - 35.5 g/dL LAB HEMATOLOGY METHOD 02/22/2025 8:44 PM EDT [facility] RDW 14.6(H) 11.5 - 14.5 % LAB HEMATOLOGY METHOD 02/22/2025 8:44 PM EDT [facility] MPV 9.5 8.8 - 12.5 fL LAB HEMATOLOGY METHOD 02/22/2025 8:44 PM EDT [facility] nRBC 0.0 <=0.0 per 100 WBCs LAB HEMATOLOGY METHOD 02/22/2025 8:44 PM EDT [facility] Blood Venous blood specimen / Unknown Venipuncture / Unknown 02/22/2025 8:36 PM EDT 02/22/2025 8:40 PM EDT us Bobby Parra MD LAB BLOOD ORDERABLES Final R esult [facility] [address] [place] [address] * (ABNORMAL) Blood gas, venous (02/22/2025 8:13 PM EDT) pH, Venous 7.33 7.32 - 7.43 LAB HEMATOLOGY METHOD 02/22/2025 8:17 PM EDT [facility] pCO2, Venous 49 37 - 52 mmHg LAB HEMATOLOGY METHOD 02/22/2025 8:17 PM EDT [facility] pO2, Venous 27 25 - 40 mmHg LAB HEMATOLOGY METHOD 02/22/2025 8:17 PM EDT [facility] SO2, Measured, Venous 49(L) 65 - 80 % LAB HEMATOLOGY METHOD 02/22/2025 8:17 PM EDT [facility] Base Excess, Venous -0.1 -2.0 - 3.0 mmol/L LAB HEMATOLOGY METHOD 02/22/2025 8:17 PM EDT [facility] Bicarbonate, Calculated, Venous 26 22 - 26 mmol/L LAB HEMATOLOGY METHOD 02/22/2025 8:17 PM EDT [facility] Hematocrit, Whole Blood 27.0(L) 34.0 - 45.0 % LAB HEMATOLOGY METHOD 02/22/2025 8:17 PM EDT [facility] Sodium, Whole Blood 128(L) 136 - 145 mmol/L LAB HEMATOLOGY METHOD 02/22/2025 8:17 PM EDT [facility] Potassium, Whole Blood 5.3(H) 3.6 - 4.9 mmol/L LAB HEMATOLOGY METHOD 02/22/2025 8:17 PM EDT [facility] Chloride, Whole Blood 96(L) 97 - 107 mmol/L LAB HEMATOLOGY METHOD 02/22/2025 8:17 PM EDT [facility] Glucose, Whole Blood 106(H) 74 - 99 mg/dL LAB HEMATOLOGY METHOD 02/22/2025 8:17 PM EDT [facility] Lactate, Venous, Whole Blood 1.0 0.5 - 2.2 mmol/L LAB HEMATOLOGY METHOD 02/22/2025 8:17 PM EDT [facility] Ionized Calcium, Whole Blood 4.3(L) 4.6 - 5.1 mg/dL LAB HEMATOLOGY METHOD 02/22/2025 8:17 PM EDT [facility] Blood Venous blood specimen / Unknown Venipuncture / Unknown 02/22/2025 8:13 PM EDT 02/22/2025 8:16 PM EDT us Luda Morton MD LAB BLOOD ORDERABLES Final Result [facility] [address] [place] [address] * EKG now - STAT (adult) (02/22/2025 8:10 PM EDT) EKG DIAGNOSIS CLASS Abnormal MUSE ECG Ventricular Rate 74 BPM MUSE ECG Atrial Rate 74 BPM MUSE ECG DE Interval 200 ms MUSE ECG QRSD Interval 136 ms MUSE ECG QT Interval 434 ms MUSE ECG QTC Interval 481 ms MUSE ECG P [place] 59 degrees MUSE ECG R [place] -84 degrees MUSE ECG T Wave [place] 48 degrees MUSE ECG Diagnosis Normal sinus rhythm MUSE ECG Diagnosis Left axis deviation MUSE ECG Diagnosis Right bundle branch block MUSE ECG Diagnosis Abnormal ECG MUSE ECG Diagnosis Compared to last ECG MUSE ECG Diagnosis No significant change was found MUSE ECG Diagnosis Confirmed by Carson Multani ([id number]) on 02/23/2025 10:45:41 AM MUSE ECG 02/22/2025 [...] 9.2(H) <5.7 % 02/23/2025 1:40 PM EDT [facility] Blood Venous blood specimen / Unknown Venipuncture / Unknown 02/22/2025 6:41 PM EDT 02/22/2025 6:47 PM EDT Narrative [facility] - 02/23/2025 1:40 PM EDT HA1C Interpretive Data: Diagnosis of Diabetes: Diabetic > or = 6.5% Pre-diabetic 5.7 to 6.4% Non-diabetic < or = 5.6% Glycemic Targets for Type I and Type II Diabetics: Non- Adults <7.0% Adults <6.0% Children and Adolescents <7.5% Source: [place] [employer]. Standards of medical care in diabetes,2017. Diabetes Care.2017:40 (suppl 1):S1-S135. us Bobby Parra MD LAB BLOOD ORDERABLES Final R esult [facility] [address] [place] [address] * (ABNORMAL) BNP (02/22/2025 6:41 PM EDT) N-Terminal, PROBNP, Plasma 1,679(H) 0 - 899 pg/mL 02/22/2025 8:39 PM EDT [facility] Blood Venous blood specimen / Unknown Venipuncture / Unknown 02/22/2025 6:41 PM EDT 02/22/2025 6:47 PM EDT Luda Morton MD LAB BLOOD ORDERABLES Final Result [facility] [address] [place] [address] * Free T4, Plasma (02/22/2025 6:41 PM EDT) Free T4, Plasma 1.3 0.8 - 1.7 ng/dL 02/22/2025 7:24 PM EDT [facility] Blood Venous blood specimen / Unknown Venipuncture / Unknown 02/22/2025 6:41 PM EDT 02/22/2025 6:47 PM EDT Luda Morton MD LAB BLOOD ORDERABLES Final Result [facility] [address] [place] [address] * Thyroid Stimulating Hormone, Plasma (02/22/2025 6:41 PM EDT) Thyroid Stimulating Hormone, Plasma 1.03 0.40 - 4.20 uIU/mL 02/22/2025 7:24 PM EDT [facility] Blood Venous blood specimen / Unknown Venipuncture / Unknown 02/22/2025 6:41 PM EDT 02/22/2025 6:47 PM EDT Luda Morton MD LAB BLOOD ORDERABLES Final Result [facility] [address] [place] [address] * Ethyl Alcohol Plasma (02/22/2025 6:41 PM EDT) Ethanol Plasma <10 <10 mg/dL 02/22/2025 8:13 PM EDT [facility] Blood Venous blood specimen / Unknown Venipuncture / Unknown 02/22/2025 6:41 PM EDT 02/22/2025 8:00 PM EDT Narrative [facility] - 02/22/2025 8:13 PM EDT Enzymatic Assay: Performed on Hector Rufus. us Luda Morton MD LAB BLOOD ORDERABLES Final Result [facility] [address] [place] [address] * (ABNORMAL) CBC w/diff (02/22/2025 6:41 PM EDT) WBC Count 9.69 3.70 - 10.30 10*3/uL LAB HEMATOLOGY METHOD 02/22/2025 6:54 PM EDT [facility] RBC Count 3.62(L) 3.90 - 5.20 10*6/uL LAB HEMATOLOGY METHOD 02/22/2025 6:54 PM EDT [facility] HGB 9.7(L) 11.2 - 15.7 g/dL LAB HEMATOLOGY METHOD 02/22/2025 6:54 PM EDT [facility] HCT 29.8(L) 34.0 - 45.0 % LAB HEMATOLOGY METHOD 02/22/2025 6:54 PM EDT [facility] Platelet Count 306 155 - 369 10*3/uL LAB HEMATOLOGY METHOD 02/22/2025 6:54 PM EDT [facility] MCV 82 79 - 98 fL LAB HEMATOLOGY METHOD 02/22/2025 6:54 PM EDT [facility] MCH 26.8 26.0 - 32.0 pg LAB HEMATOLOGY METHOD 02/22/2025 6:54 PM EDT [facility] MCHC 32.6 30.7 - 35.5 g/dL LAB HEMATOLOGY METHOD 02/22/2025 6:54 PM EDT [facility] RDW 14.6(H) 11.5 - 14.5 % LAB HEMATOLOGY METHOD 02/22/2025 6:54 PM EDT [facility] MPV 9.4 8.8 - 12.5 fL LAB HEMATOLOGY METHOD 02/22/2025 6:54 PM EDT [facility] nRBC 0.0 <=0.0 per 100 WBCs LAB HEMATOLOGY METHOD 02/22/2025 6:54 PM EDT [facility] Differential Type Automated LAB HEMATOLOGY METHOD 02/22/2025 6:54 PM EDT [facility] Neutrophils % 69 % LAB HEMATOLOGY METHOD 02/22/2025 6:54 PM EDT [facility] Lymphocytes % 13 % LAB HEMATOLOGY METHOD 02/22/2025 6:54 PM EDT [facility] Monocytes % 13 % LAB HEMATOLOGY METHOD 02/22/2025 6:54 PM EDT [facility] Eosinophils % 4 % LAB HEMATOLOGY METHOD 02/22/2025 6:54 PM EDT [facility] Basophils % 0 % LAB HEMATOLOGY METHOD 02/22/2025 6:54 PM EDT [facility] Immature Granulocytes % 1 % LAB HEMATOLOGY METHOD 02/22/2025 6:54 PM EDT [facility] Neutrophils Absolute 6.66(H) 1.60 - 6.10 10*3/uL LAB HEMATOLOGY METHOD 02/22/2025 6:54 PM EDT [facility] Lymphocytes Absolute 1.29 1.20 - 3.90 10*3/uL LAB HEMATOLOGY METHOD 02/22/2025 6:54 PM EDT [facility] Monocytes Absolute 1.27(H) 0.30 - 0.90 10*3/uL LAB HEMATOLOGY METHOD 02/22/2025 6:54 PM EDT [facility] Eosinophils Absolute 0.38 0.00 - 0.50 10*3/uL LAB HEMATOLOGY METHOD 02/22/2025 6:54 PM EDT [facility] Basophils Absolute 0.03 0.00 - 0.10 10*3/uL LAB HEMATOLOGY METHOD 02/22/2025 6:54 PM EDT [facility] Immature Granulocytes Absolute 0.06 0.00 - 0.06 10*3/uL LAB HEMATOLOGY METHOD 02/22/2025 6:54 PM EDT [facility] Blood Venous blood specimen / Unknown Venipuncture / Unknown 02/22/2025 6:41 PM EDT 02/22/2025 6:47 PM EDT Narrative [facility] - 02/22/2025 6:54 PM EDT Therapeutic decision making should be based on absolute values, rather than percentages. us Luda Morton MD LAB BLOOD ORDERABLES Final Result [facility] [address] [place] [address] * (ABNORMAL) CMP (02/22/2025 6:41 PM EDT) Glucose, Plasma 144(H) 74 - 99 mg/dL 02/22/2025 7:24 PM EDT [facility] BUN, Plasma 42(H) 8 - 23 mg/dL 02/22/2025 7:24 PM EDT [facility] Creatinine, Plasma 2.39(H) 0.60 - 1.10 mg/dL 02/22/2025 7:24 PM EDT [facility] BUN/Creatinine Ratio 18 02/22/2025 7:24 PM EDT [facility] Sodium, Plasma 125(L) 136 - 145 mmol/L 02/22/2025 7:24 PM EDT [facility] Potassium, Plasma 4.6 3.6 - 4.9 mmol/L 02/22/2025 7:24 PM EDT [facility] Chloride, Plasma 89(L) 97 - 107 mmol/L 02/22/2025 7:24 PM EDT [facility] CO2, Plasma 26 22 - 29 mmol/L 02/22/2025 7:24 PM EDT [facility] Anion Gap 10 6 - 16 mmol/L 02/22/2025 7:24 PM EDT [facility] Total Calcium, Plasma 9.0 8.9 - 10.2 mg/dL 02/22/2025 7:24 PM EDT [facility] Total Protein 7.3 6.3 - 7.9 g/dL 02/22/2025 7:24 PM EDT [facility] Albumin, Plasma 3.6 3.5 - 5.2 g/dL 02/22/2025 7:24 PM EDT [facility] AST, Plasma 13 10 - 35 U/L 02/22/2025 7:24 PM EDT [facility] ALT, Plasma 19 10 - 35 U/L 02/22/2025 7:24 PM EDT [facility] Alkaline Phosphatase, Plasma 144(H) 46 - 142 U/L 02/22/2025 7:24 PM EDT [facility] Total Bilirubin, Plasma <0.2(L) 0.2 - 1.1 mg/dL 02/22/2025 7:24 PM EDT [facility] eGFRcr 22.0 mL/min/1.7 3m*2 02/22/2025 7:24 PM EDT [facility] Comment:Reported eGFRcr in m L/min/1.73m2 is based the CKD-EPI 2020 equation that does not use a race coefficient. Blood Venous blood specimen / Unknown Venipuncture / Unknown 02/22/2025 6:41 PM EDT 02/22/2025 6:47 PM EDT us Luda Morton MD LAB BLOOD ORDERABLES Final Result [facility] [address] [place] [address] * (ABNORMAL) POCT venous blood gas gem (02/22/2025 6:37 PM EDT) pH, Venous 7.28(L) 7.32 - 7.43 02/22/2025 6:38 PM EDT [facility] pCO2, Venous 60(HH) 37 - 52 mm Hg 02/22/2025 6:38 PM EDT [facility] pO2, Venous 41(H) 25 - 40 mm Hg 02/22/2025 6:38 PM EDT [facility] SO2, Venous 72 65 - 80 % 02/22/2025 6:38 PM EDT [facility] Base Excess/Deficit, Venous 0.8 -2 - 3 mmol/L 02/22/2025 6:38 PM EDT [facility] HCO3, Venous 28.2(H) 22 - 26 mmol/L 02/22/2025 6:38 PM EDT [facility] Hemoglobin, Venous 9.2(L) 11.2 - 15.7 g/dL 02/22/2025 6:38 PM EDT [facility] Hematocrit, Venous 28.0(L) 34.0 - 45.0 % 02/22/2025 6:38 PM EDT [facility] Sodium, Venous 126(L) 136 - 145 mmol/L 02/22/2025 6:38 PM EDT [facility] Potassium, Venous 4.6 3.6 - 4.9 mmol/L 02/22/2025 6:38 PM EDT [facility] Comment:Hemolyzed, result ma y be falsely increased. POCT Chloride, Venous 94(L) 97 - 107 mmol/L 02/22/2025 6:38 PM EDT [facility] Glucose, Venous 139(H) 74 - 99 mg/dL 02/22/2025 6:38 PM EDT [facility] Ionized Calcium, Venous 4.9 4.6 - 5.1 mg/dL 02/22/2025 6:38 PM EDT [facility] Lactate, Venous 0.6 0.5 - 2.2 mmol/L 02/22/2025 6:38 PM EDT [facility] Body Temperature 37.0 Celsius 02/22/2025 6:38 PM EDT [facility] pH, Temp Corrected, Venous 7.28(L) 7.32 - 7.43 02/22/2025 6:38 PM EDT [facility] pCO2, Temp Corrected, Venous 60(HH) 37 - 52 mm Hg 02/22/2025 6:38 PM EDT [facility] pO2, Temp Corrected, Venous 41(H) 25 - 40 mm Hg 02/22/2025 6:38 PM EDT [facility] Wheel Cutter ID Joao Jackson 02/22/2025 6:38 PM EDT [facility] Blood, Venous Whole blood specimen / Unknown 02/22/2025 6:37 PM EDT 02/22/2025 6:38 PM EDT us Generic Provider Poct LAB POINT OF CARE TEST DOCKED DEVICE UNSOLICITED RESULTS Final Result Performing Organization Address City/State/[facility] Co de Phone Number [facility] [address] [place] [address] * (ABNORMAL) POCT glucose meter (02/22/2025 6:17 [...] 02/22/2025 6:19 PM EDT [facility] Wheel Cutter ID Tracy Vasques 02/22/2025 6:19 PM EDT [facility] Device ID [id number] 02/22/2025 6:19 PM EDT [facility] Specimen Type POC Capillary 02/22/2025 6:19 PM EDT [facility] Blood Capillary blood specimen / Unknown 02/22/2025 6:17 PM EDT 02/22/2025 6:19 PM EDT us Generic Provider Poct LAB POINT OF CARE TEST DOCKED DEVICE UNSOLICITED RESULTS Final Result Performing Organization Address City/State/[facility] Co de Phone Number [facility] [address] [place] [address] * INTUBATION (02/22/2025 6:13 PM EDT) Narrative [...] encounter Visit Diagnoses Diagnosis Sepsis (CMS/HCC)- Primary Dave coma scale total score 9-12, at [...] PRN, Starting on Tue02/22/25 at 202, Until 03/02/25 at 1304, Administer over 15 [...] Units, Subcutaneous, 2 times nightly (2099 & 0300), First dose on 02/24/25 at [...] 1 g, Intravenous, Once, 1 dose, On Tue02/28/25 at 1615, Routine New Bag 02/28/2025 6:05 [...] on Tue02/25/25 at 1600, Until Discontinued, Routine 1099 (Given - Provider: Gayle Light, JIMI)1755 (Given - Provider: Gayle Light RN - Comment: pt asleep)2044 (Given - Provider: Gerry Ambriz) 0851 (Given - Provider: Yves Roberts)161 (Given - Provider: Gayle Light RN)2109 (Given - Provider: Aleyda Holley, JIMI) 0822 (Given - Provider: Gayle Light, JIMI) carvedilol (Coreg) tablet 25 mg 25 mg, Oral, 2 times daily, First dose (after last modification) on Tue02/26/25 at 2100, Until Discontinued, Routine 1240 (Given - Provider: Gayle Light RN)2044 (Given - Provider: Gerry Ambriz) 0851 (Given - Provider: Yves Roberts)2109 (Given - Provider: Aleyda Holley, JIMI) 0823 [...] 0824 (Given - Provider: Gayle Light, JIMI) diphenhydrAMINE (Benadryl) tablet 12.5 mg (COMPLETED) 12.5 [...] Holley RN) 0544 (Given - Provider: Aleyda Holley, JIMI) insulin glargine-yfgn 100 UNIT/ML injection 30 Units 30 Units, Subcutaneous, Nightly, First dose (after last modification) on Tue02/27/25 at 2100, Until Discontinued, Routine 2044 (Given - Provider: Gerry Ambriz) 2110 (Given [...] Light RN) 0822 (Given - Provider: Gayle Light, JIMI)1230 [...] RN - Reason: Order parameters not met) 031 [...] Routine 1104 (Given - Provider: Gayle Light, JIMI)2044 (Given - Provider: Gerry Ambriz) 0852 (Given - Provider: Yves Roberts)2110 (Given - Provider: Aleyda Holley RN) 0824 (Given - Provider: Gayle Light RN) pantoprazole (Protonix) EC tablet 40 mg 40 [...] PRN, Starting on Tue02/22/25 at 202, Until 03/02/25 at 1304, Routine, low blood sugar per Hypoglycemia Prevention and Treatment protocol glucose (Glutose) 40 % oral gel 15-30 grams of glucose(Linked Group 2) 15-30 grams of glucose, Sublingual, Every 15 min PRN, Starting on Tue02/22/25 at 202, Until 03/02/25 at 1304, Routine, low blood [...] Tue03/01/25 at 0900, Routine Followed by DULoxetine (Shahbazalta) DR singleton 30 mgJump to med 30 mg, Oral, [...] PRN, Starting on Tue02/22/25 at 202, Until 03/02/25 at 1304, Administer over 15 Minutes, Routine, low blood sugar BG 51-89 mg/dL Or dextrose 10 % (D10W) bolus 250 mLJump to med 250 mL, Intravenous, Every 15 min PRN, Starting on Tue02/22/25 at 202, Until 03/02/25 at 1304, Administer over 15 [...] as of this encounter Care Teams Rn School Relationship Specialty Start Date End Date Vignesh Pickens MD [address] [place] [address] PCP - General 12/31/24 Cayla Erazo, LIZANDRO, DNP [address] [place] [phone] Nurse Practitioner Urology 12/20/24 documented as of this encounter
--- OUTSIDE RECORDS SUMMARY | 2025-02-28 08:15 | XMS_ITS | Encounter Summary ---
Author Organization [facility] Address [address] [place] [address] Care Team Providers Care Cabinet Abrasive Sandblaster Name Role Phone Cayla Erazo APRN, DNP Unavailable [phone] Vignesh Pickens MD Primary Care Provider [phone] Reason for Visit * Auth/Cert (Routine) Specialty Diagnoses / Procedures Referred By Contac t Referred To Contact Diagnoses Sepsis (CMS/HCC) UTI, CKD, Hyponatremia, COPD exacerbation Bobby Parra MD [address] [place] [phone] Phone: tel: fax: PAV A Inpatient [address] [place] [phone] Referral ID Status Reason Start Date Expiration Date Visits Re quested Visits Authorized [id number] 1 1 Encounter Details Date Type Department Care Team (Latest Contact Info) Description 02/28/2025 8:15 AM EDT Office Visit [facility] [address] [place] [address] Bert Lim, DMD [address] [place] [address] Caries (Primary Dx) Social History Tobacco Use [...] any time in the past 12 m [facility], were you homeless or living in [...] drink first t rodríguez in the morning (EYE-NURSE SEXUAL ASSAULT) to steady your nerves or to get rid of a hangover? 0 08/15/2024 CAGE Questionnaire Score 0 024 Utilities Answer Date Recorded In the past 12 months has th [employer], gas, oil, or water company threatened to [...] to prescribing narcotic medication. Bert Lim DMD [facility] liquor bridge operator helper PGY-1 Pager #: [phone] Cosigned by Froylan Summers DMD at 03/01/2025 8:09 AM EDT Associated attestation - Froylan Summers DMD - 03/01/2025 8:09 AM EDT I was present during all critical and madden portions of the procedure(s) and immediately available [facility] services the entire duration. See resident note for details. documented in this encounter Plan of Treatment Upcoming Encounters Date Type Department Care Team (Late st Contact Info) Description 05/16/2025 8:00 AM EDT Office Visit [facility] [place] [address] [facility] [facility], [address] [place] [address] Karly Gracia MD [address] [place] [address] 06/07/2025 1:00 PM EDT Office Visit [facility] [address] [place] [address] Tom Iraheta MD [address] [place] [address] documented as of this encounter [...] documented as of this encounter Care Teams Cabinet Abrasive Sandblaster Relationship Specialty Start Date End Date Vignesh Pickens MD [address] [place] [address] PCP - General 12/31/24 Cayla Erazo APRN, DNP [address] [facility] [address] [place] [address] Nurse Practitioner Urology 12/20/24 documented as of this encounter
--- OUTSIDE RECORDS SUMMARY | 2025-02-28 08:15 | XMS_ITS | Encounter Summary ---
Author Organization [facility] Address [address] [place] [address] Care Team Providers Care Transportation Solutions Manager Name Role Phone Cayla Erazo APRN, DNP Unavailable Vignesh Pickens MD Primary Care Provider [phone] Reason for Visit * Auth/Cert (Routine) Specialty Diagnoses / Procedures Referred By Contac t Referred To Contact Diagnoses Sepsis (CMS/HCC) UTI, CKD, Hyponatremia, COPD exacerbation Bobby Parra MD [address] [place] [phone] Phone: tel: fax: PAV A Inpatient [address] [place] [phone] Referral ID Status Reason Start Date Expiration Date Visits Re quested Visits Authorized [id number] 1 1 Encounter Details Date Type Department Care Team (Latest Contact Info) Description 02/28/2025 8:15 AM EDT Office Visit [facility] secretary[facility]transcriptionist [facility] [address] [place] [address] Bert Lim, DMD [address] [place] [address] Caries (Primary Dx) Social History Tobacco Use [...] drink first t rodríguez in the 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 0 08/15/2024 CAGE Questionnaire Score 0 024 Utilities Answer Date Recorded In the past 12 months has th [employer], gas, oil, or water company threatened to [...] to prescribing narcotic medication. Bert Lim DMD [facility] foundry molder PGY-1 Pager #: [phone] Cosigned by Froylan Summers DMD at 03/01/2025 8:09 AM EDT Associated attestation - Froylan Summers DMD - 03/01/2025 8:09 AM EDT I was present during all critical and madden portions of the procedure(s) and immediately available [facility] services the entire duration. See resident note for details. documented in this encounter Plan of Treatment Upcoming Encounters Date Type Department Care Team (Late st Contact Info) Description 03/27/2025 11:50 AM EDT Clinical Support Medical Office Building Lab [address] [place] [address] 03/27/2025 1:00 PM EDT Office Visit [facility] Building Urology [address] [facility], [address] [place] [address] Cayla Erazo APRN, DNP [address] [facility] [address] [place] [address] 05/16/2025 8:00 AM EDT Office Visit [facility] [place] [address] [place] [address] Karly Gracia MD [address] [place] [address] 06/07/2025 1:00 PM EDT Office Visit [facility] [address] [facility] [address] [place] [address] Tom Iraheta MD [address] [place] [address] documented as of this encounter [...] documented as of this encounter Care Teams Transportation Solutions Manager Relationship Specialty Start Date End Date Vignesh Pickens MD [address] [place] [address] PCP - General 12/31/24 Cayla Erazo APRN, FREDERICK [address] [place] [address] Nurse Practitioner Urology 12/20/24 documented as of this encounter
--- OUTSIDE RECORDS SUMMARY | 2025-03-07 10:00 | XMS_ITS | Encounter Summary ---
Author Organization [facility] Address [address] [place] [address] Care Team Providers Care Supervisor Dried Yeast Name Role Phone Cayla Erazo APRN, DNP Unavailable [phone] Vignesh Pickens MD Primary Care Provider [phone] Reason for Visit * Other Medical (Routine) - Closed Specialty Diagnoses / Procedures Referred By Contelvie t Referred To Contact Urology Diagnoses Gross hematuria Procedures Cysto- Urology Cayla Erazo APRN, DNP [address] [address] Phone: tel: fax: Referral ID Status Reason Start Date Expiration Date Visits Re quested Visits Authorized [id number] Closed 12/25/2024 06/26/2026 1 1 Encounter Details Date Type Department Care Team (Late st Contact Info) Description 03/07/2025 10:00 AM EDT Office Visit [facility] [address], [address] [place] [address] Doug Chapman MD [id number] [place] [address] Gross hematuria Social History Tobacco [...] in the [facility] m [facility], were you homeless or living in [...] drink first t rodríguez in the morning (EYE-OUTPATIENT CLERK) to steady your nerves or to get rid of a hangover? 0 08/15/2024 CAGE Questionnaire Score 0 024 Utilities Answer Date Recorded In the past 12 months has th e [employer], gas, oil, or water [employer] threatened to shut off services in your [...] Maxwell MD - 03/07/2025 10:00 AM EDT [facility]rology Clinic Note CC: hematuria HPI: Eileen Tovar is a 64 y.o. F who was initially evaluated in Sep 2024 for diagnosis ofbilateral hydronephrosis in Jul 2024 thought to be due to severe constipation. She was treated for UTI while inpatient at [facility] and had improvement in renal function and hydronephrosis with indwellingFoley catheter that was removed prior to discharge to [facility] in [place]. She is a limited historian, presented in a wheelchair, and is accompanied by a staff member from [facility] without further information provided. She presents today [...] Vitals: 03/07/25 1009 BP: 108/63 Pulse: 79 Community Affairs Director present during entire exam General: Pleasant, alert, [...] Essential (primary) hypertension CAD (coronary artery disease), [place] coronary artery Controlled diabetes mellitus type II without complication Iron deficiency anemia Second hand smoke exposure Acute kidney injury superimposed on CKD ([facility]/HCC) Arthritis Cellulitis of left knee Chronic respiratory failure COPD (chronic obstructive pulmonary disease) ([facility]) Dehydration with hyponatremia Diabetes mellitus ([facility]) Hyperlipidemia Restrictive lung disease Stroke ([facility]) Belk coma scale total score 13-15, unspecified coma timing Pyelonephritis Kidney infection Acquired absence of leg above knee Stage 3 chronic kidney disease ([facility]) Type 2 diabetes mellitus with diabetic chronic kidney disease ([facility]) Peripheral vascular disease, unspecified ([facility]) Prosthetic joint infection ([facility]) Unspecified hydronephrosis Vitamin D deficiency, unspecified Disorder of kidney and ureter, unspecified Unspecified right bundle-branch block Unspecified abdominal pain Tubulo-interstitial nephritis, not specified as acute or chronic Tinea unguium Secondary hyperparathyroidism of renal origin ([facility]) Pain in right toe(s) Pain in left toe(s) Edema, unspecified Presence of left artificial knee joint Other specified disorders of the skin and subcutaneous tissue Other nonspecific abnormal finding of lung field Weakness Other disorders of phosphorus metabolism Other acute postprocedural pain Old myocardial infarction Nontoxic single thyroid nodule Morbid (severe) obesity due to excess calories ([facility]) Mixed simple and mucopurulent chronic bronchitis ([facility]) Methicillin resistant Staphylococcus aureus infection Hypertensive heart and chronic kidney disease with heart failure and stage 1 through stage 4 chronic kidney disease, or unspecified chronic kidney disease ([facility]) Hyperkalemia Hydronephrosis with renal and ureteral calculous obstruction Hemiplegia and hemiparesis following cerebral infarction affecting left non- dominant side ([facility]) Fecal impaction ([facility]) Dysuria Dyspnea, unspecified Deep venous thrombosis of lower extremity Constipation, unspecified Chronic diastolic (congestive) heart failure ([facility]/HCC) Calculus of kidney Atrial premature depolarization Adult [...] occlusion or stenosis of left carotid arteries (CMS/[facility]) Anemia in chronic kidney disease Chronic kidney [...] BREAST SURGERY N/A Breast Surgery Reconstruction from [employer] BREAST SURGERY N/A Breast Surgery from [employer] CHOLECYSTECTOMY N/A Cholecystotomy from [employer] KIDNEY SURGERY N/A Kidney Surgery from [employer] KNEE SURGERY N/A Knee Surgery from [employer] MASTECTOMY N/A Breast Surgery Mastectomy from [employer] SHOULDER SURGERY Right Shoulder Surgery Right from [employer] [4] Family History Problem Relation Name Age [...] Description 05/16/2025 8:00 AM EDT Office Visit [facility] [address], [address] [place] [address] Karly Gracia MD [address] [place] [address] 06/07/2025 1:00 PM EDT Office Visit [facility] [address] [place] [address] Tom Iraheta MD [address] [place] [address] documented as of this encounter [...] as of this encounter Care Teams Supervisor Dried Yeast Relationship Specialty Start Date End Date Vignesh Pickens MD [address] [place] [address] PCP - General 12/31/24 Cayla Erazo, LIZANDRO, DNP [address] [place] [address] Nurse Practitioner Urology 12/20/24 documented as of this encounter
--- OUTSIDE RECORDS SUMMARY | 2025-03-07 10:00 | XMS_ITS | Encounter Summary ---
Author Organization [facility] Address [address] [place] [address] Care Team Providers Care Yard Hostler Name Role Phone Cayla Erazo APRN, DNP Unavailable [phone] Vignesh Pickens MD Primary Care Provider [phone] Reason for Visit * Other Medical (Routine) - Closed Specialty Diagnoses / Procedures Referred By Contelvie t Referred To Contact Urology Diagnoses Gross hematuria Procedures Cysto- Urology Cayla Erazo APRN, DNP [address] [address] Phone: tel: fax: Referral ID Status Reason Start Date Expiration Date Visits Re quested Visits Authorized [id number] Closed 12/25/2024 06/26/2026 1 1 Encounter Details Date Type Department Care Team (Late st Contact Info) Description 03/07/2025 10:00 AM EDT Office Visit [place] [facility] [address], [address] [place] [address] Doug Chapman MD [id number] [place] [address] Gross hematuria Social History Tobacco [...] drink first t rodríguez in the morning (EYE-BAILIFF) to steady your nerves or to get rid of a hangover? 0 08/15/2024 CAGE Questionnaire Score 0 024 Utilities Answer Date Recorded In the past 12 months has th e [employer], gas, oil, or water [employer] threatened to shut off services in your [...] Maxwell MD - 03/07/2025 10:00 AM EDT [facility] Urology Clinic Note CC: hematuria HPI: Eileen Tovar is a 64 y.o. F who was initially evaluated in Sep 2024 for diagnosis ofbilateral hydronephrosis in Jul 2024 thought to be due to severe constipation. She was treated for UTI while inpatient at [facility] and had improvement in renal function and hydronephrosis with indwellingFoley catheter that was removed prior to discharge to [facility] in [place]. She is a limited historian, presented in a wheelchair, and is accompanied by a staff member from [facility] without further information provided. She presents today [...] Vitals: 03/07/25 1009 BP: 108/63 Pulse: 79 Hydrogen Plant Operations Manager present during entire exam General: Pleasant, alert, [...] Essential (primary) hypertension CAD (coronary artery disease), [place] coronary artery Controlled diabetes mellitus type II without complication Iron deficiency anemia Second hand smoke exposure Acute kidney injury superimposed on CKD ([facility]/HCC) Arthritis Cellulitis of left knee Chronic respiratory failure COPD (chronic obstructive pulmonary disease) ([facility]) Dehydration with hyponatremia Diabetes mellitus ([facility]) Hyperlipidemia Restrictive lung disease Stroke ([facility]) [place] coma scale total score 13-15, unspecified coma timing Pyelonephritis Kidney infection Acquired absence of leg above knee Stage 3 chronic kidney disease ([facility]) Type 2 diabetes mellitus with diabetic chronic kidney disease ([facility]) Peripheral vascular disease, unspecified ([facility]) Prosthetic joint infection ([facility]) Unspecified hydronephrosis Vitamin D deficiency, unspecified Disorder of kidney and ureter, unspecified Unspecified right bundle-branch block Unspecified abdominal pain Tubulo-interstitial nephritis, not specified as acute or chronic Tinea unguium Secondary hyperparathyroidism of renal origin ([facility]) Pain in right toe(s) Pain in left toe(s) Edema, unspecified Presence of left artificial knee joint Other specified disorders of the skin and subcutaneous tissue Other nonspecific abnormal finding of lung field Weakness Other disorders of phosphorus metabolism Other acute postprocedural pain Old myocardial infarction Nontoxic single thyroid nodule Morbid (severe) obesity due to excess calories ([facility]) Mixed simple and mucopurulent chronic bronchitis ([facility]) Methicillin resistant Staphylococcus aureus infection Hypertensive heart and chronic kidney disease with heart failure and stage 1 through stage 4 chronic kidney disease, or unspecified chronic kidney disease ([facility]) Hyperkalemia Hydronephrosis with renal and ureteral calculous obstruction Hemiplegia and hemiparesis following cerebral infarction affecting left non- dominant side ([facility]) Fecal impaction ([facility]) Dysuria Dyspnea, unspecified Deep venous thrombosis of lower extremity Constipation, unspecified Chronic diastolic (congestive) heart failure ([facility]/HCC) Calculus of kidney Atrial premature depolarization Adult [...] occlusion or stenosis of left carotid arteries (CMS/[facility]) Anemia in chronic kidney disease [...] BREAST SURGERY N/A Breast Surgery Reconstruction from [employer] BREAST SURGERY N/A Breast Surgery from [employer] CHOLECYSTECTOMY N/A Cholecystotomy from [employer] KIDNEY SURGERY N/A Kidney Surgery from [employer] KNEE SURGERY N/A Knee Surgery from [employer] MASTECTOMY N/A Breast Surgery Mastectomy from [employer] SHOULDER SURGERY Right Shoulder Surgery Right from [employer] [4] Family History Problem Relation Name Age [...] Support Medical Office Building [facility] [address] [place] [address] 03/27/2025 1:00 PM EDT Office Visit [facility] [address], [address] [place] [address] Cayla Erazo APRN, DNP [address] [place] [address] 05/16/2025 8:00 AM EDT Office Visit [facility] [place] [address], [address] [place] [address] Karly Gracia MD [address] [place] [address] 06/07/2025 1:00 PM EDT Office Visit [facility] [address] [place] [address] Tom Iraheta MD [address] [place] [address] documented as of this encounter [...] documented as of this encounter Care Teams Yard Hostler Relationship Specialty Start Date End Date Vignesh Pickens MD [address] [place] [address] PCP - General 12/31/24 Cayla Erazo APRN, FREDERICK [address] [place] [address] Nurse Practitioner Urology 12/20/24 documented as of this encounter
[2025-03-27] VITALS (20 sets, daily range): BP systolic 100–147; BP diastolic 41–84; PULSE 49–112; RESP 16–25; TEMP 36.9–39.6; O2SAT 71–99; BMI 30.4
--- NOTE | 2025-03-27 11:31 | ED_ITS ---
<Statement entered by Stephen Krause MD - 03/27/25 15:57> I consulted the WAYLON, and we discussed the complexity of the problems being addressed. I approved the treatment and management plan for this patient's care in the emergency department, thus performing a substantial portion of the medical decision making. Will MD Jimi Discharge Plan Disposition Patient Disposition: Admitted Condition: Fair Clinical Impressions Clinical Impression: UTI (urinary tract infection), AMS (altered mental status) Discharge ED Provider: Stephen Krause General Adult HPI <KIMBERLI Olvera - Last Filed: 03/27/25 15:38> General Chief complaint: Weakness Stated complaint: lethergy Time Seen by Provider: 03/27/25 11:26 Mode of Arrival: EMS Source of Information: Patient Limitations: Altered Mental Status History of Present Illness HPI narrative: 64-year-old female presents the emergency department via EMS from detention facility for altered mental status/difficulty to arouse, patient was reportedly at baseline and morning rounds according to EMS today, upon subsequent rounding, patient had a GCS changed from 15-14, with some confusion, he did have some active chills and rigors, she is currently on 3L nasal cannula, some hypoxia was noted noted per EMS in the upper 80s, however the patient is on baseline 2-3 L nasal cannula, patient at the bedside is pleasantly confused, she is alert oriented to person and place, disoriented to time, patient states it is Tuesday , and that the year is February , he is active chills and rigors at the bedside, she denies any other acute symptomatology, such as nausea vomiting urinary symptomatology, no abdominal pain no chest pain, she does admit to shortness of breath however. Patient upon detention note reviewed, recently was diagnosed with a UTI on March 17, was treated with IM ertapenem, other past medical history is consistent with left AKA, COPD, HFrEF, carotid artery stenosis with presence of carotid artery stent, GERD, mood disorder, history of right-sided mastectomy, CKD, T2DM, hyperlipidemia, hypertension, history of TIA/CVA, CAD. Patient appears to be a former tobacco smoker, unknown history of alcohol or drug use, initial triage vitals are notable for tachypnea and tachycardia thus triggering sepsis criteria. Please note that above description of symptoms, in this electronic medical record under categorization of recalled from ER triage doctor by RN are reflective of an initial nursing assessment, however, is not reflective of my full history and physical exam that was personally taken and clarified. Consequentially, this preceding description of symptoms, which may include the patient's categorized chief complaint in the EMR, do not reflect my personal clinical impression, and the ultimate description of history of present illness and patient stated complaints should be deferred to this section of the note. Unless stated otherwise or congruent with this section of the note, additional signs, symptoms, or incongruence should be interpreted as inaccurate with my clinical impression. Onset (ago): hour(s) Related Data Home Medications ?Medication ?Instructions ?Recorded ?Confirmed acetaminophen 500 mg tablet 500 mg PO Q6HP PRN Mild Pa in 02/28/18 03/26/25 (Scale Score 1-4) anastrozole 1 mg tablet 1 mg PO DAILY breast cancer 02/28/18 03/26/25 atorvastatin 40 mg tablet 40 mg PO DAILY 02/28/1801/13 carvedilol 12.5 mg tablet 12.5 mg PO BID 02/28/1801/13 loperamide 2 mg capsule 2 mg PO Q4HP PRN Diarrhea 03/26/25 baclofen 10 mg tablet 10 mg PO TID 04/11/19 pantoprazole 20 mg tablet,delayed 20 mg PO DAILY 04/1103/26/25 release (Protonix) clopidogrel 75 mg tablet 75 mg PO DAILY 02/04/2001/13 multivitamin with minerals 1 each PO DAILY Supplement 05/06/21 03/26/25 ondansetron 4 mg disintegrating 4 mg PO Q6HP PRN Nause a And 07/28/22 03/26/25 tablet Vomiting trazodone 150 mg tablet 300 mg PO HS 07/28/22 cholecalciferol (vitamin D3) 25 25 mcg PO BID 10/04/23 03/26/25 mcg (1,000 unit) tablet (Vitamin D3) cyanocobalamin (vitamin B-12) 1,000 mcg PO DAILY 10/0403/26/25 1,000 mcg tablet (Vitamin B-12) fluticasone furoate 100 1 inh inhalation DAILY 10/0403/26/25 mcg-vilanterol 25 mcg/dose inhalation powder (Breo Ellipta) fluticasone propionate 50 1 spray intranasal BID 10/0403/26/25 mcg/actuation nasal spray,suspension magnesium oxide 400 mg PO BID 10/04/2303/26 ascorbic acid (vitamin C) 500 mg 500 mg PO BID 10/16/ 4 03/26/25 tablet (Vitamin C) calcitriol 0.25 mcg capsule 0.25 mcg PO DAILY 03/19/24 03/26/25 dextromethorphan-guaifenesin 10 10 ml PO Q4H PRN Cough 07/24/24 03/26/25 mg-100 mg/5 mL oral liquid (Guaiasorb DM) ferrous sulfate 325 mg (65 mg 325 mg PO BID 10/02/24 0 03/26/25 iron) tablet (iron) d-mannose 500 mg capsule (AZO 2,000 mg PO DAILY 03/26/25 D-Mannose) insulin aspart U-100 100 unit/mL 1 sliding scale dose SQ 02/19/25 03/26/25 (3 mL) subcutaneous pen USEASDIRECTD insulin glargine 100 unit/mL (3 70 unit SQ BID 5 03/26/25 mL) subcutaneous pen (Basaglar KwikPen U-100 Insulin) mirabegron 50 mg tablet,extended 50 mg PO DAILY 03/26/25 release 24 hr (Myrbetriq) trospium 20 mg tablet 20 mg PO BID 02/19/25 fluvoxamine 25 mg tablet 25 mg PO HS 03/13/25 5 Previous Rx's ?Medication ?Instructions ?Recorded azelastine 137 mcg (0.1 %) nasal 2 spray intranasal BI D allergy 09/13/23 spray symptoms #30 mL oxycodone-acetaminophen 5 mg-325 1 tab PO BID PRN Pain (Scale Score 01/16/25 mg tablet (Percocet) 7-10) #60 tabs fentanyl 12 mcg/hr transdermal 1 patch transdermal Q72 H #10 02/07/25 patch patches pregabalin 50 mg capsule 50 mg PO DAILY #30 caps 02/19 10/16 ertapenem 1 gram solution for 1 g IM DAILY 5 days #5 e a 03/16/25 injection Allergies Allergy/AdvReac Type Severity Reaction Status Date / Time adhesive tape Allergy Unknown Unknown Verified 03/27/25 13:55 allergy reaction bupropion (From WELLBUTRIN) Allergy Unknown Unknown Verified 03/27/25 13:55 allergy reaction hydrocodone (From LORTAB) Allergy Unknown Unknown Verified 03/27/25 13:55 allergy reaction Sulfa (Sulfonamide Allergy Unknown Unknown Verified 03/27/25 13:55 Antibiotics) (SULFA allergy (SULFONAMIDE ANTIBIOTICS)) reaction tramadol (From ULTRAM) Allergy Unknown Unknown Verified 03/27/25 13:55 allergy reaction PFSH <KIMBERLI Olvera - Last Filed: 03/27/25 15:38> [facility] Disclaimer: The information contained in this section may have been updated after the patient was seen, as this information can be updated by other users. 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 (Updated 03/27/25 @ 15:09 by KIMBERLI Olvera) Acute alteration in mental status Acute UTI Chronic anticoagulation Deep venous thrombosis Postmenopausal bleeding Below knee amputation Insomnia GERD (gastroesophageal reflux disease) Chronic pain Mood disorder HFrEF (heart failure with reduced ejection fraction) Altered mental status Acute pyelitis Fecal impaction Pulmonary nodules/lesions, multiple Screening mammogram for breast cancer Multiple thyroid nodules Mediastinal lymphadenopathy Chronic kidney disease (CKD) Recurrent UTI Hypertension HLD (hyperlipidemia) Diabetes mellitus Hyperkalemia GEOVANNI (acute kidney injury) 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, left Menopausal vasomotor syndrome Fibromyalgia, primary Gastro-esophageal reflux disease without esophagitis 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three affiliated coronary artery without angina pectoris Other idiopathic peripheral autonomic neuropathy Chronic pain syndrome Anxiety disorder, unspecified Major depressive disorder, recurrent, unspecified Hypertensive heart disease without heart failure Need for assistance at home and no other household member able to render care Age-related osteoporosis without current pathological fracture Trochanteric bursitis, right hip Unilateral primary osteoarthritis, right hip Obstructive sleep apnea (adult) (pediatric) Unspecified diastolic (congestive) heart failure Iron deficiency anemia secondary to blood loss (chronic) Right carotid artery occlusion BMI 39.0-39.9,adult Biventricular CHF (congestive heart failure) PVC (premature ventricular contraction) Edema Chronic hypoxemic respiratory failure Stopped smoking with greater than 30 pack year history ARA and COPD overlap syndrome Acute respiratory failure with hypoxia and hypercapnia CHF exacerbation History of smoking 30 or more pack years History of breast cancer Abnormal ECG COPD (chronic obstructive pulmonary disease) CVA (cerebral vascular accident) CAD (coronary artery disease) Surgical History (Updated 03/26/25 @ 16:38 by Vignesh Pickens MD) Left above-knee amputee Presence of internal carotid stent History of right shoulder replacement Status post left knee replacement History of total left knee replacement History of right mastectomy Family History Other Black lung disease Diabetes Hypertension Social History Smoking Status: Unknown if ever smoked smoking status stop date: 06/2022 alcohol intake: never substance use type: denies use current occupational status: disabled Travel in the last 8 weeks?: None household members: other housing: detention caffeine: Yes Other 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 Have you received the Flu Vaccine for this season: No Have you received the Pneumonia Vaccine: Yes (06/29/19, 11/26/24) <KIMBERLI Olvera - Last Filed: 03/27/25 15:38> ROS Obtained: Yes All systems reviewed & no additional complaints except as documented Physical Exam <KIMBERLI Olvera - Last Filed: 03/27/25 15:38> General General appearance: alert Comment: Ill-appearing female, with active chills and rigors at the bedside Head Head exam: atraumatic and normocephalic Eye Eye exam: Present PERRL and EOMI ENT ENT exam: Present mucous membranes moist Neck Neck exam: Present normal inspection Chest Chest inspection: Present normal inspection and symmetric chest wall rise Respiratory Respiratory exam: Present wheezes and other (Mild wheezes and crackles noted throughout bilateral lung campbell); Absent normal lung sounds bilaterally or respiratory distress Cardiovascular Cardiovascular exam: Present regular rate, normal rhythm and tachycardia Abdominal Exam Abdominal exam: Present soft and distention; Absent tenderness Extremities Exam Extremities exam: Present normal inspection and other (Obvious left AKA, otherwise neurovascularly intact) Neurological Exam Neurological exam: Present alert and other (GCS of 14, moves extremities to command, alert to person and place, disoriented to time, no obvious focal neurological deficit is present); Absent oriented X3 Psychiatric Psychiatric exam: Present normal affect Skin Skin exam: Present warm and dry Medical Decision Making <KIMBERLI Olvera - Last Filed: 03/27/25 15:38> Medical Records Medical records reviewed: Yes I reviewed the patient's medical records. Screening: Per USPSTF and CDC recommendations, given the prevalence of disease in our region, it is our hospital?s policy to screen for HIV and viral Hepatitis for all patients aged 18 and over and those with ongoing risk factors. Jordi Inquiry Pt receiving controlled substance: No Jordi was queried for this patient: No Vital Signs: 03/27/25 11:27 03/27/25 11:45 03/27/25 12:01 Temperature 98.9 F Temperature Source Oral Pulse Rate 49 L 91 H Pulse Rate [Right Brachial] 102 H Respiratory Rate 20 Blood Pressure 117/73 109/69 L Blood Pressure [Right Arm] 117/73 Blood Pressure Mean 93 Blood Pressure Mean [Right Arm] 87 Blood Pressure Source Blood Pressure Position 02 Sat by Pulse Oximetry 71 L 95 Oxygen Delivery Method Nasal Cannula Oxygen Flow Rate (LPM) 3 03/27/25 13:02 03/27/25 13:03 03/27/25 14:08 Temperature Temperature Source Pulse Rate 106 H 106 H 105 H Pulse Rate [Right Brachial] Respiratory Rate Blood Pressure 144/78 H 147/84 H 147/47 H Blood Pressure [Right Arm] Blood Pressure Mean Blood Pressure Mean [Right Arm] Blood Pressure Source Blood Pressure Position 02 Sat by Pulse Oximetry 98 96 93 L Oxygen Delivery Method Oxygen Flow Rate (LPM) 03/27/25 14:30 03/27/25 15:00 03/27/25 15:15 Temperature Temperature Source Pulse Rate 107 H 110 H 111 H Pulse Rate [Right Brachial] Respiratory Rate Blood Pressure 132/52 L 138/41 L Blood Pressure [Right Arm] Blood Pressure Mean Blood Pressure Mean [Right Arm] Blood Pressure Source Blood Pressure Position 02 Sat by Pulse Oximetry 99 99 98 Oxygen Delivery Method Oxygen Flow Rate (LPM) 03/27/25 15:28 Temperature 103 F H Temperature Source Tympanic Pulse Rate 112 H Pulse Rate [Right Brachial] Respiratory Rate 20 Blood Pressure 138/47 L Blood Pressure [Right Arm] Blood Pressure Mean Blood Pressure Mean [Right Arm] Blood Pressure Source Automatic Cuff Blood Pressure Position Supine 02 Sat by Pulse Oximetry Oxygen Delivery Method Nasal Cannula Oxygen Flow Rate (LPM) 3 Lab Data Lab results reviewed: Yes I reviewed the patient's lab results. Lab Results 03/27/25 11:34: WBC 10.0, RBC 3.97 L, Hgb 10.3 L, Hct 34.5 L, MCV 86.9, MCH 25.9 L, MCHC 29.9 L, RDW 15.8, Plt Count 344, MPV 9.7, Neut % (Auto) 78.2, Lymph % (Auto) 9.1 L, King % (Auto) 9.7 H, Eos % (Auto) 2.4, Baso % (Auto) 0.3, Neut # (Auto) 7.8, Lymph # (Auto) 0.9, King # (Auto) 1.0, Eos # (Auto) 0.2, Baso # (Auto) 0.0, Sodium 136, Potassium 5.4 H, Chloride 96 L, Carbon Dioxide 31 H, Anion Gap 14.4, BUN 32 H, Creatinine 2.40 H, Estimated Creat Clear 33, Estimated GFR 20 L, Est GFR ( Amer) 25 L, Glucose 219 H, Lactate 3.2 H, Calcium 9.7, Magnesium 2.1, Total Bilirubin 0.2, AST 38 H, ALT 35, Alkaline Phosphatase 153 H, Troponin I 0.02, NT-Pro-B Natriuret Pep 1230 H, Total Protein 8.2, Albumin 4.2, Globulin 4.0 H, Albumin/Globulin Ratio 1.1, Lipase 131 03/27/25 11:43: VBG pH 7.25 L, VBG pCO2 66.9 H, VBG pO2 37.2, VBG HCO3 28.9, VBG Total CO2 31.0 H, VBG O2 Saturation 63.4, VBG Base Excess 1.8, VBG Lactic Acid 4.0 H 03/27/25 11:53: SARS-CoV-2 (PCR) Not detected, Influenza A Untype (PCR) Not detected, Influenza Type B (PCR) Not detected 03/27/25 12:25: Urine Opiates Screen Negative, Urine Methadone Screen Negative, Ur Barbituates Screen Negative, Ur Phencyclidine Scrn Negative, Ur Amphetamines Screen Negative, U Benzodiazepines Scrn Negative, Urine Cocaine Screen Negative, U Marijuana (THC) Screen Negative 03/27/25 12:30: Urine Color Yellow, Urine Appearance Clear, Urine pH 6.0, Ur Specific [place] 1.020, Urine Protein 3+ A, Urine Glucose (UA) Negative, Urine Ketones Negative, Urine Blood 3+ A, Urine Nitrate Negative, Urine Bilirubin Negative, Urine Urobilinogen 0.2, Ur Leukocyte Esterase 3+ A, Urine RBC 20-50, Urine WBC Tntc, Ur Squamous Epith Cells None, Urine Bacteria None 03/27/25 15:00: Troponin I 0.03 03/27/25 11:34 03/27/25 11:34 Orders (Tests/Meds): ED MEDICATIONS Generic Name Dose Route Start Last Admin Trade Name Jennifer PRN Reason Stop Dose Admin Acetaminophen 650 mg 03/27/25 15:10 Acetaminophen 325mg Tab PO 04/26/25 15:09 Q4HP PRN Fever or Mild Pain (1-3) Acetaminophen 1,000 mg 03/27/25 15:36 03/27/25 15:40 Acetaminophen 500mg Tab PO 03/27/25 15:37 1,000 mg ONCE ONE Administration Enoxaparin Sodium 40 mg 03/28/25 09:00 Enoxaparin 40mg/0.4ml Syringe SUBCUT 04/27/25 08:59 DAILY [facility] Ertapenem 1 gm/ Sodium 50 mls @ 100 mls/hr 03/27/25 15:30 Chloride IV 04/06/25 15:29 Q24H [facility] Insulin Human Lispro 0 unit 03/27/25 16:30 Humalog 100 Units/Ml 10ml Vial ([facility]) SUBCUT 04/26/25 16:29 ACHS [facility] Protocol Ondansetron HCl 4 mg 03/27/25 15:10 Ondansetron 4mg/2ml Vial IV 04/26/25 15:09 Q8HP PRN Nausea Discontinued Medications Generic Name Dose Route Start Last Admin Trade Name Jennifer PRN Reason Stop Dose Admin Lactated Ringer's 1,000 mls @ 999 mls/hr 03/27/25 11:36 03/27/25 12:11 Lactated Ringer's 1000 Ml Bag IV 03/27/25 12:36 999 mls/hr .Q1H1M ONE Administration Ceftriaxone Sodium 1 gm/ 50 mls @ 100 mls/hr 03/27/25 11:36 03/27/25 12:13 Sodium Chloride IV 03/27/25 12:05 100 mls/hr ONCE ONE Administration Ertapenem 0.5 gm/ Sodium 50 mls @ 100 mls/hr 03/27/25 15:30 Chloride IV 04/06/25 15:29 Q24H [facility] Iopamidol 80 ml 03/27/25 12:35 03/27/25 12:36 Iopamidol-370 (76%);100ml Bottle IV 03/27/25 12:36 80 ml ONCE ONE Administration Sodium Chloride 50 ml 03/27/25 12:35 03/27/25 12:36 0.9 % Sodium Chloride 50 Ml Vial IV 03/27/25 12:36 50 ml ONCE ONE Administration Sodium Chloride 10 ml 03/27/25 12:35 03/27/25 13:35 Sodium Chloride 0.9% 10ml Syr (Rad Only) IV 03/27/25 12:36 Not Given ONCE ONE ORDERS Category Date Time Status CT abdomen pelvis w con Stat Cat Scan 03/27/25 11:[address] angio chest PE protocol Stat Cat Scan 03/27/25 11:[address] head/brain wo con Stat Cat Scan 03/27/25 11:36 Completed XR chest portable Stat Exams 03/27/25 11:36 Completed Complete Blood Count Auto Diff Stat Lab 03/27/25 11:34 Completed Comprehensive Metabolic Panel Stat Lab 03/27/25 11:34 Completed Drug Screen,Urine Stat Lab 03/27/25 12:25 Completed Lactic Acid Stat Lab 03/27/25 11:34 Completed Lipase Stat Lab 03/27/25 11:34 Completed Magnesium Stat Lab 03/27/25 11:34 Completed NT Pro Brain Natriuretic Pep. Stat Lab 03/27/25 11:34 Completed Rapid PCR Covid and Flu A/B Stat Lab 03/27/25 11:53 Completed Troponin I Q3H Lab 03/27/25 15:00 Completed Troponin I Q3H Lab 03/27/25 17:45 Ordered Troponin I Stat Lab 03/27/25 11:34 Completed Urinalysis and Microscopic Stat Lab 03/27/25 12:30 Completed Blood Culture Stat Micro 03/27/25 12:03 Received Urine Culture Stat Micro 03/27/25 12:30 Received VBG [Venous Blood Gas] Stat RT 03/27/25 11:43 Completed Medical Decision Narrative: 64-year-old female presents the emergency department via EMS from detention facility for altered mental status/decreased responsiveness, differential diagnose include but not limited to, sepsis, acute UTI, acute pyelonephritis, bowel obstruction, PE, cardiac arrhythmia, electrolyte disturbance, pneumonia, ACS, acute hypoxic respiratory failure, CHF exacerbation, pulmonary edema, uremic encephalopathy, metabolic encephalopathy among others I discussed this patient's case with the attending physician Dr. Krause Will obtain basic laboratory studies, UDS, lactic acid level, lipase level, magnesium level, UA, EKG, blood cultures, will perform CT abdomen pelvis with contrast, CT head without contrast, CXR, CTA chest, read PCR COVID and flu, troponin, proBNP, will give 1 L LR IV, and will not give full fluid bolus sepsis dosing due to concern for pulmonary edema, in the setting of CHF, will give 1 g IV ceftriaxone and obtain VBG. CBC is notable for no leukocytosis, hemoglobin hematocrit are 10.3 and 34.5 respectively, which seem to be improved from the patient's baseline/previous CMP is noted for mild hyperkalemia at 5.4, BUN and creatinine elevation of 32/2.4, GEOVANNI, superimposed on CKD, VBG is notable for respiratory acidosis with a pH of 7.25, CO2 of 66.9, bicarb within normal limits, venous lactic is elevated at 4 proBNP is elevated at 1230 Lactic acidosis of 3.2 Troponin is 0.02 I reviewed the patient's CTA chest with and without contrast PE protocol, there is no evidence of pulmonary embolism. I reviewed the patient's CT head without contrast along the corresponding radiologic report, stable multifocal encephalomalacia consistent with prior infarct. COVID-19 and influenza are negative per PCR UDS negative I reviewed the patient's chest x-ray along the corresponding radiologic report, no acute process. I reviewed the patient's CT abdomen pelvis with contrast along the corresponding radiologic report, moderate bilateral hydroureteronephrosis with thickening of the urinary bladder wall and worsening retroperitoneal adenopathy underlying neoplasm not excluded, recommend cystoscopy and consultation with urology. I did receive a phone call from lab at around 1:45 PM, patient's urine was so viscous , he was unable to be spun down, thus requiring new specimen. Nursing staff was able to catheterize the patient, will anchor a Parekh at this time to have adequate urine sample as well as some relief from possible urinary outflow obstruction, due to the bilateral hydroureteronephrosis noted on CT abdomen pelvis. UA is notable for 3+ proteinuria, 3+ hematuria, too numerous to count white blood cells, 3+ leukocyte esterase, 20-50 RBCs, and no squamous epithelial cells and no urine bacteria. Discussed this patient's case with the hospitalist provider Mariana López APRN at approximately 2:58 PM, she is agree with current admission plan/treatment plan for sepsis and altered mental status in the setting of probable UTI. I did discuss all results with her at the bedside, she is agreement with the current treatment plan/admission plan, however because of the patient's confusion I did speak with the patient's POA/sister Ms.Erma Howell over the phone at approximately 3:05 PM, she is in agreement with current admission plan/treatment plan for UTI. Patient was noted to be febrile when transferring from the emergency department to the floor, with a temperature of 103.3, will give 1000 g p.o. Tylenol for fever. <Stephen Krause MD - Last Filed: 03/27/25 16:13> Vital Signs: 03/27/25 11:27 03/27/25 11:45 03/27/25 12:01 Temperature 98.9 F Temperature Source Oral Pulse Rate 49 L 91 H Pulse Rate [Right Brachial] 102 H Respiratory Rate 20 Blood Pressure 117/73 109/69 L Blood Pressure [Right Arm] 117/73 Blood Pressure Mean 93 Blood Pressure Mean [Right Arm] 87 Blood Pressure Source Blood Pressure Position 02 Sat by Pulse Oximetry 71 L 95 Oxygen Delivery Method Nasal Cannula Oxygen Flow Rate (LPM) 3 03/27/25 13:02 03/27/25 13:03 03/27/25 14:08 Temperature Temperature Source Pulse Rate 106 H 106 H 105 H Pulse Rate [Right Brachial] Respiratory Rate Blood Pressure 144/78 H 147/84 H 147/47 H Blood Pressure [Right Arm] Blood Pressure Mean Blood Pressure Mean [Right Arm] Blood Pressure Source Blood Pressure Position 02 Sat by Pulse Oximetry 98 96 93 L Oxygen Delivery Method Oxygen Flow Rate (LPM) 03/27/25 14:30 03/27/25 15:00 03/27/25 15:15 Temperature Temperature Source Pulse Rate 107 H 110 H 111 H Pulse Rate [Right Brachial] Respiratory Rate Blood Pressure 132/52 L 138/41 L Blood Pressure [Right Arm] Blood Pressure Mean Blood Pressure Mean [Right Arm] Blood Pressure Source Blood Pressure Position 02 Sat by Pulse Oximetry 99 99 98 Oxygen Delivery Method Oxygen Flow Rate (LPM) 03/27/25 15:28 Temperature 103 F H Temperature Source Tympanic Pulse Rate 112 H Pulse Rate [Right Brachial] Respiratory Rate 20 Blood Pressure 138/47 L Blood Pressure [Right Arm] Blood Pressure Mean Blood Pressure Mean [Right Arm] Blood Pressure Source Automatic Cuff Blood Pressure Position Supine 02 Sat by Pulse Oximetry Oxygen Delivery Method Nasal Cannula Oxygen Flow Rate (LPM) 3 Lab Data Lab Results 03/27/25 11:34: WBC 10.0, RBC 3.97 L, Hgb 10.3 L, Hct 34.5 L, MCV 86.9, MCH 25.9 L, MCHC 29.9 L, RDW 15.8, Plt Count 344, MPV 9.7, Neut % (Auto) 78.2, Lymph % (Auto) 9.1 L, King % (Auto) 9.7 H, Eos % (Auto) 2.4, Baso % (Auto) 0.3, Neut # (Auto) 7.8, Lymph # (Auto) 0.9, King # (Auto) 1.0, Eos # (Auto) 0.2, Baso # (Auto) 0.0, Sodium 136, Potassium 5.4 H, Chloride 96 L, Carbon Dioxide 31 H, Anion Gap 14.4, BUN 32 H, Creatinine 2.40 H, Estimated Creat Clear 33, Estimated GFR 20 L, Est GFR ( Amer) 25 L, Glucose 219 H, Lactate 3.2 H, Calcium 9.7, Magnesium 2.1, Total Bilirubin 0.2, AST 38 H, ALT 35, Alkaline Phosphatase 153 H, Troponin I 0.02, NT-Pro-B Natriuret Pep 1230 H, Total Protein 8.2, Albumin 4.2, Globulin 4.0 H, Albumin/Globulin Ratio 1.1, Lipase 131 03/27/25 11:43: VBG pH 7.25 L, VBG pCO2 66.9 H, VBG pO2 37.2, VBG HCO3 28.9, VBG Total CO2 31.0 H, VBG O2 Saturation 63.4, VBG Base Excess 1.8, VBG Lactic Acid 4.0 H 03/27/25 11:53: SARS-CoV-2 (PCR) Not detected, Influenza A Untype (PCR) Not detected, Influenza Type B (PCR) Not detected 03/27/25 12:25: Urine Opiates Screen Negative, Urine Methadone Screen Negative, Ur Barbituates Screen Negative, Ur Phencyclidine Scrn Negative, Ur Amphetamines Screen Negative, U Benzodiazepines Scrn Negative, Urine Cocaine Screen Negative, U Marijuana (THC) Screen Negative 03/27/25 12:30: Urine Color Yellow, Urine Appearance Clear, Urine pH 6.0, Ur Specific [place] 1.020, Urine Protein 3+ A, Urine Glucose (UA) Negative, Urine Ketones Negative, Urine Blood 3+ A, Urine Nitrate Negative, Urine Bilirubin Negative, Urine Urobilinogen 0.2, Ur Leukocyte Esterase 3+ A, Urine RBC 20-50, Urine WBC Tntc, Ur Squamous Epith Cells None, Urine Bacteria None 03/27/25 15:00: Troponin I 0.03 Orders (Tests/Meds): ED MEDICATIONS Generic Name Dose Route Start Last Admin Trade Name Freq PRN Reason Stop Dose Admin Acetaminophen 650 mg 03/27/25 15:10 Acetaminophen 325mg Tab PO 04/26/25 15:09 Q4HP PRN Fever or Mild Pain (1-3) Acetaminophen 1,000 mg 03/27/25 15:36 03/27/25 15:40 Acetaminophen 500mg Tab PO 03/27/25 15:37 1,000 mg ONCE ONE Administration Enoxaparin Sodium 40 mg 03/28/25 09:00 Enoxaparin 40mg/0.4ml Syringe SUBCUT 04/27/25 08:59 DAILY [facility] Ertapenem 1 gm/ Sodium 50 mls @ 100 mls/hr 03/27/25 15:30 Chloride IV 04/06/25 15:29 Q24H [facility] Insulin Human Lispro 0 unit 03/27/25 16:30 Humalog 100 Units/Ml 10ml Vial ([facility]) SUBCUT 04/26/25 16:29 ACHS [facility] Protocol Ondansetron HCl 4 mg 03/27/25 15:10 Ondansetron 4mg/2ml Vial IV 04/26/25 15:09 Q8HP PRN Nausea Discontinued Medications Generic Name Dose Route Start Last Admin Trade Name Freq PRN Reason Stop Dose Admin Lactated Ringer's 1,000 mls @ 999 mls/hr 03/27/25 11:36 03/27/25 12:11 Lactated Ringer's 1000 Ml Bag IV 03/27/25 12:36 999 mls/hr .Q1H1M ONE Administration Ceftriaxone Sodium 1 gm/ 50 mls @ 100 mls/hr 03/27/25 11:36 03/27/25 12:13 Sodium Chloride IV 03/27/25 12:05 100 mls/hr ONCE ONE Administration Ertapenem 0.5 gm/ Sodium 50 mls @ 100 mls/hr 03/27/25 15:30 Chloride IV 04/06/25 15:29 Q24H [facility] Iopamidol 80 ml 03/27/25 12:35 03/27/25 12:36 Iopamidol-370 (76%);100ml Bottle IV 03/27/25 12:36 80 ml ONCE ONE Administration Sodium Chloride 50 ml 03/27/25 12:35 03/27/25 12:36 0.9 % Sodium Chloride 50 Ml Vial IV 03/27/25 12:36 50 ml ONCE ONE Administration Sodium Chloride 10 ml 03/27/25 12:35 03/27/25 13:35 Sodium Chloride 0.9% 10ml Syr (Rad Only) IV 03/27/25 12:36 Not Given ONCE ONE ORDERS Category Date Time Status CT abdomen pelvis w con Stat Cat Scan 03/27/25 11:[address] angio chest PE protocol Stat Cat Scan 03/27/25 11:[address] head/brain wo con Stat Cat Scan 03/27/25 11:36 Completed XR chest portable Stat Exams 03/27/25 11:36 Completed Complete Blood Count Auto Diff Stat Lab 03/27/25 11:34 Completed Comprehensive Metabolic Panel Stat Lab 03/27/25 11:34 Completed Drug Screen,Urine Stat Lab 03/27/25 12:25 Completed Lactic Acid Stat Lab 03/27/25 11:34 Completed Lipase Stat Lab 03/27/25 11:34 Completed Magnesium Stat Lab 03/27/25 11:34 Completed NT Pro Brain Natriuretic Pep. Stat Lab 03/27/25 11:34 Completed Rapid PCR Covid and Flu A/B Stat Lab 03/27/25 11:53 Completed Troponin I Q3H Lab 03/27/25 15:00 Completed Troponin I Q3H Lab 03/27/25 17:45 Ordered Troponin I Stat Lab 03/27/25 11:34 Completed Urinalysis and Microscopic Stat Lab 03/27/25 12:30 Completed Blood Culture Stat Micro 03/27/25 12:03 Received Urine Culture Stat Micro 03/27/25 12:30 Received VBG [Venous Blood Gas] Stat RT 03/27/25 11:43 Completed Critical Care <Stephen Krause MD - Last Filed: 03/27/25 16:13> Critical Care Time Critical Care Time: Yes Attestation: On 03/27/25, the high probability of a clinically significant, sudden or life threatening deterioration of the following system(s) required my full and direct attention, intervention and personal management. The time I documented below is in addition to time spent performing reported procedures but includes the following listed in this critical care notation. Total Time Total Critical Care Time: 45
--- OUTSIDE RECORDS SUMMARY | 2025-03-27 11:35 | XMS_ITS | Clinical Summary ---
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) 34796630 (SNOMED CT) 10/25 Active 10/25 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 Benign hypertension Presence of left artificial knee joint Z96.652 (ICD-10-CM ) 10/25 Active 10/25 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 Presence of left artificial knee joint Hx of MRSA infection 462975552 (SNOMED CT) 10/25 Active 10/25 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 H/O: infectious disease Hx of malignant neoplasm of breast 915530993 (SNOMED CT) 03/02 Resolved 03/02 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 History of malignant neoplasm of breast Cellulitis of left leg 839824489 (SNOMED CT) 03/02 Resolved 03/02 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 Cellulitis of lower limb 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 care social worker (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) use of suppressive antibiotics Z79.2 (ICD-10-CM ) 01/14 Inactive 01/14 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 long term care social worker (current) use of antibiotics Anemia in chronic diseases(docu ment disease) D63.8 (ICD-10-CM ) 01/14 Active 01/14 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 Anemia in other chronic diseases classified elsewhere Chronic respiratory failure with hypoxia 69999612 (SNOMED CT) 01/14 Active 01/14 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 Acute respiratory failure COPD 19659630 (SNOMED CT) 01/14 Active 01/14 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 Chronic obstructive pulmonary disease DM Type II E11.9 (ICD-10-CM ) 01/14 Inactive 01/14 Helne Salazar Type 2 diabetes mellitus without complications Benign Essential Hypertension 01818749 (SNOMED CT) 01/14 Removed 01/14 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 Benign hypertension Acquired absence of left knee joint 073642009 (SNOMED CT) 03/02 Resolved 03/02 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 History of operative procedure on knee Obesity due to excess calories E66.09 (ICD-10-CM ) 03/02 Resolved 03/02 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 Other obesity due to excess calories long-term (current) use of anticoagulant s Z79.01 (ICD-10-CM ) 03/02 Resolved 03/02 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 long term care social worker (current) use of anticoagulants Staph epi infection B95.7 (ICD-10-CM ) 03/02 Resolved 03/02 Helen Salazar Other staphylococcus as the cause of diseases classified elsewhere Diarrhea 20160698 (SNOMED CT) 09/28 Resolved 09/28 Helen Salazar Diarrhea Staph hominis infection B95.7 (ICD-10-CM ) 09/28 Resolved 09/28 Helen Salazar Other staphylococcus as the cause of diseases classified elsewhere Staph hominis infection B95.7 (ICD-10-CM ) 09/28 Removed 09/28 Arie Dougherty MD Other staphylococcus as the cause of diseases classified elsewhere Diarrhea 96470213 (SNOMED CT) 09/28 Removed 09/28 Arie Dougherty MD Diarrhea Acquired absence of left knee joint 837810344 (SNOMED CT) 03/02 Removed 03/02 Helen Salazar History of operative procedure on knee Cellulitis of left leg 764761791 (SNOMED CT) 03/02 Removed 03/02 Helen Salazar Cellulitis of lower limb Knee, left, subsequent encounter, infection/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 T84.54xD (ICD-10-CM ) 03/02 Active 03/02 Helen Salazar Infection and inflammatory reaction due to internal left knee prosthesis, subsequent encounter Staph epi infection B95.7 (ICD-10-CM ) 03/02 Removed 03/02 Helen Salazar Other staphylococcus as the cause of diseases classified elsewhere 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 care social worker (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) use of anticoagulant s Z79.01 (ICD-10-CM ) 03/02 Removed 03/02 Helen Salazar long-term (current) use of anticoagulants Obesity due to excess calories E66.09 (ICD-10-CM ) 03/02 Removed 03/02 Helen Salazar Other obesity due to excess calories Hx of malignant neoplasm of breast 259491539 (SNOMED CT) 03/02 Removed 03/02 Helen Salazar History of malignant neoplasm of breast Medications Medication Instructions Start Date Stop Date Generic Name NDC Provider DOXYCYCLINE MONOHYDRATE 100 MG CAPS Take 1 capsule by mouth twice a day 10/25 doxycycline monohydrate 42934749868 Arie Dougherty MD ceftriaxone recon soln 2GM IV Q24hrs [facility] 02/18 ceftriaxone recon soln Temi Norris Cubicin RF 800mg IV Q48hrs [facility] 02/18 daptomycin Temi Norris DOXYCYCLINE MONOHYDRATE 100 MG CAPS Take 1 capsule by mouth twice a day 02/03 doxycycline monohydrate 75116869838 Arie Dominguez RF 800mg IV Q48hrs [facility] 02/18 daptomycin Nubia Ervin ceftriaxone recon soln 2GM IV Q24hrs [facility] 02/18 ceftriaxone recon soln Nubiadeidre Ervin IPRATROPIUM-ALBUT MIKE 0.5-2.5 (3) MG/3ML SOLN 3 ml by mouth PRN 01/27 ipratropium-albut mike 09777750771 Nubia Minor Gaviscon 95-358 mg/15 mL suspension by mouth four times a day 30 mL aluminum hydrox-magnesium carb 19884891995 Nubia Minor IPRATROPIUM-ALBUT MIKE 0.5-2.5 (3) MG/3ML SOLN using nebulizer every six hours PRN ipratropium-albut mike 08956203980 Nubia Minor BASAGLAR KWIKPEN 100 UNIT/ML SOPN subcutaneously once a day insulin glargine 46055944885 Nubia Minor MUCUS RELIEF D 60-600 MG [id number] by mouth twice a day pseudoephedrine-g uaifenesin 36000959623 Nubia Minor VITAMIN B-12 100 MCG TABS by mouth once a day cyanocobalamin (vitamin b-12) 17782954941 Nubia Minor PERCOCET 5-325 MG TABS 1-2 tablet every four to six hours oxycodone-acetami nophen 13383701817 Nubia Minor BIOTIN 1000 MCG TABS by mouth once a day biotin 82571657526 Nubia Minor GABAPENTIN 800 MG TABS by mouth four times a day as needed gabapentin 77039603799 Nubia Minor ATORVASTATIN CALCIUM 40 MG TABS by mouth every morning Hold while on daptomycin atorvastatin 52498555242 Nubia Minor FERROUS SULFATE 325 (65 Fe) MG TABS by mouth once a day ferrous sulfate 81865223810 Nubia Minor VENLAFAXINE HCL 75 MG TABS by mouth twice a day venlafaxine 55389541594 Nubia Minor CITRACAL MAXIMUM 315-6.25 MG-MCG TABS by mouth twice a day calcium citrate-vitamin d3 00629669350 Nubia Poncho JANUMET XR 50-1000 MG ET58H-ILN by mouth twice a day sitagliptin phos-metformin 64234010273 Nubia Minor GNP HYDROCORTISONE/AL OE 1 % CREA Apply to skin twice a day as needed hydrocortisone acetate 14177793656 Nubia Minor MS CONTIN 15 MG CR-TABS by mouth twice a day morphine 96228313058 Nubia Minor OMEPRAZOLE 20 MG TBEC 2 tablet by mouth once a day omeprazole 46208359890 Nubia Minor DOXYCYCLINE HYCLATE 100 MG TABS Take 1 tablet by mouth twice a day 01/11 doxycycline hyclate 62942834538 Nubia Minor CARVEDILOL 12.5 MG TABS by mouth twice a day carvedilol 15098467008 Nubia Minor PROMETHAZINE HCL 25 MG TABS by mouth three times a day as needed promethazine 23351470423 Nubia Minor TIZANIDINE HCL 4 MG TABS by mouth three times a day as needed tizanidine 86589055868 Nubia Minor LACTULOSE 10 GM/15ML SOLN 30 ml by mouth as needed lactulose 89232532000 Nubia Minor COLACE 100 MG CAPS by mouth twice a day as needed docusate sodium 65102419848 Nubia Minor XARELTO TABLET 15 mg 15 mg Take 1 by mouth once a day XARELTO TABLET 15 mg 15 mg Nubia Minor ANASTROZOLE 1 MG TABS by mouth once a day anastrozole 62644125261 Nubia Minor ACETAMINOPHEN 500 MG TABS by mouth every six hours PRN acetaminophen 01782242971 Nubia Minor LOPERAMIDE HCL 2 MG CAPS by mouth once a day PRN loperamide 52652227453 Nubia Minor ASCORBIC ACID 500 MG TABS by mouth 0.5 tab am and 0.5 tab pm ascorbic acid (vitamin c) 58754796706 Nubia Minor BACLOFEN 10 MG TABS by mouth three times a day baclofen 91141208030 Nubia Minor BREO ELLIPTA 100-25 MCG/ACT AEPB every morning fluticasone furoate-vilantero l 38378372560 Nubia Minor BUMETANIDE 2 MG TABS by mouth twice a day bumetanide 31408727363 Nubia Minor CALCIUM 600 1500 (600 Ca) MG TABS by mouth twice a day calcium carbonate 37358178968 Nubia Minor D3 HIGH POTENCY 10 MCG (400 UNIT) TABS by mouth 2.5 units am and 2.5 units pm cholecalciferol (vitamin d3) 29413000101 Nubia Minor PLAVIX 75 MG TABS by mouth every morning clopidogrel 74860909903 Nubia Minor VITAMIN B-12 1000 MCG TABS by mouth every morning cyanocobalamin (vitamin b-12) 81522109808 Nubia Minor FLONASE ALLERGY RELIEF 50 MCG/ACT SUSP intranasally every morning fluticasone propionate 73974776752 Nubia Minor FOSAMAX 70 MG TABS by mouth once a week alendronate 92049685925 Nubia Minor GLIPIZIDE ER 2.5 MG [id number] by mouth every morning 0.5 tab glipizide 55971717473 Nubia Minor LANTUS SOLOSTAR 100 UNIT/ML SOPN 8 unit subcutaneously every night insulin glargine 10467647918 Nubia Minor IPRATROPIUM-ALBUT MIKE 0.5-2.5 (3) MG/3ML SOLN 3 ml by mouth PRN 01/27 ipratropium-albut mike 50521884410 Nubia Minor JARDIANCE 10 MG TABS by mouth every morning empagliflozin 61699882640 Nubia Minor MAGNESIUM OXIDE 400 MG TABS by mouth twice a day magnesium oxide 89371469617 Nubia Minor METFORMIN HCL 1000 MG TABS by mouth twice a day metformin 74638267396 Nubia Minor MULTI-VITAMIN HP/MINERALS CAPS by mouth once a day multivitamin,tx-m inerals 99368185111 Nubia Minor ONDANSETRON HCL 4 MG TABS by mouth twice a day PRN ondansetron hcl 76627547246 Nubia Minor PANTOPRAZOLE SODIUM 20 MG TBEC by mouth once a day pantoprazole 45274915824 Nubia Minor PREGABALIN 50 MG CAPS by mouth three times a day pregabalin 29749383144 Nubia Isaac SENNA 8.6 MG TABS by mouth 2 tabs PRN sennosides 10088979703 Nubia Isaac SPIRONOLACTONE 50 MG TABS by mouth once a day spironolactone 48510461371 Nubia Isaac TRAZODONE HCL 150 MG TABS by mouth once a day 2 tabs trazodone 36998615996 Nubia Isaac VALSARTAN 80 MG TABS by mouth twice a day valsartan 46133105444 Nubia Isaac VENLAFAXINE HCL ER 150 MG [id number]-RCF by mouth every morning venlafaxine 44330234232 Nubia Isaac VANCOMYCIN HCL SOLR 1gm IV q 12 x 6wks [facility] [phone] 10/05 VANCOMYCIN HCL SOLR 88341728354 Libby Cabello JIMI MS CONTIN 15 MG CR-TABS by mouth twice daily 01/11 MORPHINE SULFATE 18570581740 Arie Dougherty MD PERCOCET 5-325 MG TABS 1-2 tabs, every four to six hours, do not exceed 4000mg of acetaminophen per day 01/11 OXYCODONE-ACETAMI NOPHEN 61204421303 Arie Dougherty MD [facility] IRON 325 (65 Fe) MG TABS by mouth daily 01/11 FERROUS SULFATE 80914800164 Arie Dougherty MD COLACE 100 MG CAPS by mouth twice daily as needed 02/19 DOCUSATE SODIUM 23414996817 Arie Dougherty MD DOXYCYCLINE HYCLATE 100 MG TABS take 1 tab po BID 02/19 DOXYCYCLINE HYCLATE 13418763830 Arie Dougherty MD XARELTO TABLET Take one by mouth once daily. 01/11 RIVAROXABAN TABS 64273934720 Arie Dougherty MD COUMADIN 5 MG ORAL TABLET by mouth, AC dinner 10/17 WARFARIN SODIUM 91023478369 Arie Dougherty MD VANCOMYCIN HCL SOLR 1gm IV q 12 x 6wks [facility] [phone] 08/22 VANCOMYCIN HCL SOLR 62137709524 [facility] VANCOMYCIN HCL SOLR 750 mg IV q 12 x 6wks [facility] [phone] 03/31 VANCOMYCIN HCL SOLR 69831857467 [facility] VANCOMYCIN HCL SOLR 750 mg IV q 12 x 6wks [facility] [phone] 08/22 VANCOMYCIN HCL SOLR 30810878736 Daily Lewis RN VENLAFAXINE HCL 75 MG TABS by mouth twice daily 01/11 VENLAFAXINE HCL 40137615736 Kulwant P PROMETHAZINE HCL 25 MG TABS by mouth three times a day as needed 01/11 PROMETHAZINE HCL 40677883456 Kulwant P B-12 100 MCG TABS by mouth daily 09/29 CYANOCOBALAMIN 90189729015 Kulwant P JANUMET XR 50-1000 MG [id number] by mouth twice daily 01/11 SITAGLIPTIN-METFO RMIN HCL 58500174870 Kulwant P TIZANIDINE HCL 4 MG TABS by mouth three times a day as needed 01/11 TIZANIDINE HCL 87914642136 Kulwant P GABAPENTIN 800 MG TABS by mouth four times a day as needed 01/11 GABAPENTIN 51567684323 Kulwant P CARVEDILOL 12.5 MG TABS by mouth twice daily 01/11 CARVEDILOL 20543002672 Kulwant P ANASTROZOLE 1 MG TABS by mouth daily 01/11 ANASTROZOLE 96453866882 Kulwant P CITRACAL MAXIMUM 315-6.25 MG-MCG TABS by mouth twice daily 01/11 CALCIUM CITRATE-VITAMIN D 91617491589 Kulwant P [facility] OMEPRAZOLE 20 MG TBEC 2 tabs by mouth once daily 01/11 OMEPRAZOLE 17521944879 Kulwant P BIOTIN 1000 MCG TABS by mouth daily 01/11 BIOTIN 63054918290 Kulwant P ATORVASTATIN CALCIUM 40 MG TABS by mouth at bedtime 01/11 ATORVASTATIN CALCIUM 39137967224 Kulwant P COUMADIN 5 MG ORAL TABLET by mouth, AC dinner 05/19 WARFARIN SODIUM 07503181230 Kulwant P LACTULOSE SOLN 30mL by mouth as needed 02/19 LACTULOSE SOLN 13336995989 Kulwant P HYDROCORTISONE ACETATE 1 % CREA apply topically twice a day as needed 10/25 HYDROCORTISONE ACETATE 14056067441 Kulwant P MS CONTIN 15 MG CR-TABS by mouth twice daily 11/20 MORPHINE SULFATE 47598112990 Kulwant P [facility] IRON 325 (65 Fe) MG TABS by mouth daily 11/20 FERROUS SULFATE 98087928579 Kulwant P COLACE 100 MG CAPS by mouth twice daily as needed 02/19 DOCUSATE SODIUM 89182539212 Kulwant P PERCOCET 5-325 MG TABS 1-2 tabs, every four to six hours, do not exceed 4000mg of acetaminophen per day 11/20 OXYCODONE-ACETAMI NOPHEN 40382904528 Kulwant P VANCOMYCIN HCL SOLR 1gm IV q 12 x 6wks [facility] [phone] 08/22 VANCOMYCIN HCL SOLR 02444426036 [facility] Medications Administered No information available. 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 Dietary management education, guidance, and counseling [...] Oral Antibiotic CPT-ca Continue IV antibiotics 2022 CPT-04126 CMP [id number] CBC with Differential 2022 CPT-17199 C- reactive protein [id number], [id number] CPK CPT-J7030 IV Fluids CPT-sl STAT Labs CPT-sl STAT Labs CPT-sl STAT Labs CPT-35291 C- reactive protein CPT-48496 Sedimentation Rate (ESR) 201 02/20/04 CPT-72469 Vancomycin Trough CPT-99994 CMP [id number] CBC with Differential 2015 CPT-62720 C- reactive protein CPT-31774 Sedimentation Rate (ESR) 201 01/31/26 CPT-ca Continue IV antibiotics 2015 CPT-wpc Weekly PICC Line Care 09/28 CPT-58322 CMP [id number] CBC with Differential 2015 CPT-32673 Vancomycin Trough CPT-25074 C- reactive protein CPT-49356 Sedimentation Rate (ESR) 201 01/31/07 CPT-cdpcr C-Diff PCR CPT-isi New IV antibiotic CPT-04704 PICC Line Insertion CPT-89742 [facility] [id number] CBC with Differential 2015 CPT-54476 C- reactive protein CPT-86032 Sedimentation Rate (ESR) 201 01/30/30 CPT-DC Discontinue IV antibiotics 2 CPT-PICREM PICC Removal CPT-ca Continue IV antibiotics 2015 CPT-31020 CMP [id number] CBC with Differential 2015 CPT-90923 C- reactive protein CPT-17438 Sedimentation Rate (ESR) 201 01/27/01 CPT-84391 Vancomycin Trough CPT-ca Continue IV antibiotics 2015 CPT-86802 CMP [id number] CBC with Differential 2015 CPT-36680 C- reactive protein CPT-39730 Sedimentation Rate (ESR) 201 01/27/20 CPT-18291 Vancomycin Trough CPT-ca Continue IV antibiotics 2015 [...]
--- OUTSIDE RECORDS SUMMARY | 2025-03-27 11:35 | XMS_ITS | Clinical Summary ---
Author Organization [facility] Address [address] [place] [address] Phone Care Team Providers Care Director Of Digital Platforms Name Role Phone Foreign Spangler MD, Andrei [place] Primary Care Provid er Allergies No known [...] [place] PART A [place] [id number] Care Teams Director Of Digital Platforms Relationship Specialty Start Date End Date Andrei Carrasquillo Sr., MD [address] [place] [id number] PCP - General Rental Sales Agent 03/17/16
--- OUTSIDE RECORDS SUMMARY | 2025-03-27 11:35 | XMS_ITS | Encounter Summary ---
Author Organization [facility] Address [address] [place] [address] Care Team Providers Care Senior Software Project Manager Name Role Phone Cayla Erazo APRN, DNP Unavailable [phone] Vignesh Pickens MD Primary Care Provider [phone] Encounter Details Date Type Department Care Team [...] in the past [address] [facility], were you homeless or living [...] drink first t rodríguez in the morning ([employer] WEAVER) to steady your nerves or to get [...] Risk Indicated 01/31/2025 8:50 AM EDT Jovita Orocso, RN * Question Answer Date of Assessment [...] Upcoming Encounters Date Type Department Care Team ([facility] st Contact Info) Description 03/27/2025 11:50 AM EDT Clinical Support Medical Office Building Lab [address] [phone] 03/27/2025 1:00 PM EDT Office Visit Medical Office Building Urology [address], [address] [place] [address] Cayla Erazo, RADIO INTERFERENCE TROUBLE SHOOTER, DNP [address] [facility] [address] [place] [address] 05/16/2025 8:00 AM EDT Office Visit [facility] [place] [address], [address] [place] [address] Karly Gracia MD [address] [place] [address] 06/07/2025 1:00 PM EDT Office Visit [facility] [address] [place] [address] Tom Iraheta MD [address] [place] [address] documented as of this encounter [...] as of this encounter Care Teams Senior Software Project Manager Relationship Specialty Start Date End Date Vignesh Pickens MD [address] [id number] PCP - General 12/31/24 Cayla Erazo APRN, [place] [id number] [place] [phone] Nurse Practitioner Urology 12/20/24 documented as of this encounter
--- OUTSIDE RECORDS SUMMARY | 2025-03-27 11:35 | XMS_ITS | Clinical Summary ---
Author Organization [facility] Address [address] [place] [address] Care Team Providers Care City Jailer Name Role Phone Cayla Erazo APRN, DNP Unavailable [phone] Vignesh Pickens MD Primary Care Provider [phone] Allergies Active Allergy Reactions Criticality Noted Date [...] 2 times a day. 6 tablet 03/04/20 25 Active Additional Information Patient not taking.Reported on 03/07/2025 rivaroxaban (Xarelto) 15 MG tablet Take 1 tablet by mouth every evening. Take with food. 025 Discontinued(St op Taking at Discharge) DULoxetine (Cymbalta) [address] capsule Take 1 capsule by mouth daily. Do not crush or chew. Take with 60mg capsule for a 90mg dose 025 Discontinued DULoxetine (Cymbalta) [address] capsule Take 1 capsule by mouth daily. Do not crush or chew. Take with 30mg capsule for a 90mg dose 025 Discontinued insulin glargine (Basaglar KwikPen) 100 UNIT/ML injection pen Inject 70 Units under the skin 2 times a day. @ 0630 and 1999 025 Discontinued(St op Taking at Discharge) fentaNYL (Duragesic) 12 MCG/HR Place 1 patch on the skin every 3rd (third) day. 3 patch 08/22/19 25 025 Discontinued pregabalin (Lyrica) 50 MG capsule Take 1 capsule (50 mg) by mouth 2 (two) times a day. 60 capsule 08/22/19 25 025 Discontinued(St op Taking at Discharge) oxyCODONE-vida taminophen (Percocet) 5-325 MG tablet Take 1 tablet by mouth 2 (two) times a day if needed for severe pain. 6 tablet 08/22/19 025 Discontinued Vibegron 75 MG tablet Take 75 mg by mouth daily. Take one pill by mouth daily. 30 tablet 12/21/19 025 Discontinued mirabegron ER (Myrbetriq) 25 MG tablet Take 2 tablets by mouth every morning. 60 tablet 02/01/20 025 Discontinued insulin aspart (NovoLOG) 100 UNIT/ML injection pen Inject under the skin 2 times a day. Sliding scale 025 Discontinued(St op Taking at Discharge) insulin glargine-yfgn 100 UNIT/ML injection vial Inject 30 Units under the skin nightly. 10 mL 5 03/01/20 025 Discontinued DULoxetine (Cymbalta) [address] capsule Take 1 capsule by mouth daily for 7 doses. Do not crush or chew. 7 capsule 03/02/20 025 Discontinued insulin glargine-yfgn 100 UNIT/ML injection vial Inject 30 Units under the skin nightly. 10 mL 03/01/20 025 Discontinued DULoxetine (Cymbalta) [address] capsule Take 1 capsule by mouth daily for 7 doses. Do not crush or chew. 7 capsule 03/02/20 025 Discontinued pregabalin (Lyrica) 50 MG capsule Take 1 capsule by mouth daily. 3 capsule 03/02/20 25 025 Discontinued fentaNYL (Duragesic) 12 MCG/HR Place 1 patch on the skin every 3rd day. 3 patch 03/01/20 025 Discontinued naloxone (Narcan) 4 mg/0.1 mL [...] day for 1 day. 2 tablet 03/02/20 025 Discontinued amoxicillin-c lavulanate (Augmentin) 875-125 MG [...] ureteral calculous obstruction 08/17/2024 Kidney infection 08/16/2024 [place] coma scale total sco re 13-15, unspecified [...] without esophagitis 03/28/2017 CAD (coronary artery disease), wainwright coronary a rtery 03/28/2017 Controlled diabetes mellitus [...] Description 03/07/2025 10:00 AM EDT Office Visit [facility] [address] [place] [address] Doug Chapman MD Gross hematuria 03/07/2025 Travel 03/04/2025 Results Follow-Up [facility] Medicine Virtual Dept. [address] [place] [address] Madonna Singleton MD 03/01/2025 Telephone [facility] [address] [address] Dental, Surgeon, 02/28/2025 8:15 AM EDT Office Visit [facility] [address] [address] Bert Lim DMD Caries (Primary Dx) 02/28/2025 Travel 02/27/2025 Travel 02/24/2025 Travel 02/22/2025 6:13 PM EDT - 03/02/2025 11:04 AM EDT Hospital Encounter [facility] [address] [place] [address] Daniel Gordillo MD Salahuddin, Nawal, MD Powers, Michael F, MD Pasha, Sara N, MD Sagheer, Iqra, MD Acute respiratory failure with hypoxia and hypercapnia (Primary Dx); Dave coma scale total score 9-12, at arrival to emergency department; Acute cystitis without hematuria; Acute respiratory failure with hypercapnia; COPD exacerbation (CMS/[facility]); Acute kidney injury superimposed on CKD ([facility]); Chronic kidney disease, stage 3a ([facility]); Hyponatremia; Acute encephalopathy; Sepsis with encephalopathy without septic shock, due to unspecified organism ([facility]); Chronic diastolic (congestive) heart failure ([facility]); 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 Discharge Disposition: Care Home Facility 02/22/2025 Travel 02/22/2025 Orders Only External Location [address] [place] [address] Jordan Carl MD 02/22/2025 Orders Only External Location [address] [place] [address] Jordan Carl MD 02/22/2025 Orders Only External Location [address] [place] [address] Jordan Carl MD 02/22/2025 Orders Only External Location [address] [place] [address] Jordan Carl MD 01/31/2025 9:48 AM EDT Anesthesia Event [facility] OPERATING ROOM [address] [place] [address] Nj Sears MD 01/31/2025 8:55 AM EDT - 01/31/2025 10:10 AM EDT Surgery [facility] [address] [place] [address] Ceci Mitchell MD URETEROSCOPY,CYSTOSCO PY, RETROGRADE PYELOGRAM, BILATERAL STENT PLACEMENT [78684 (CPT )] 01/31/2025 8:03 AM EDT - 01/31/2025 1:39 PM EDT Hospital Encounter [facility] [address] [place] [address] Ceci Mitchell MD Urinary retention (Primary Dx); Gross hematuria Discharge Disposition: Home or Self Care 01/31/2025 Travel 01/24/2025 2:00 PM EDT Pre-Admission Testing [facility] Pre-[facility] [address] [place] [address] 01/24/2025 Travel 01/23/2025 Telephone [facility] [address] [place] [address] Ceci Mitchell MD 01/17/2025 Telephone [facility] [address] [place] [address] Ceci Mitchell MD 01/16/2025 Telephone [facility] [address] [place] [address] Ceci Mitchell MD 01/03/2025 2:15 PM EDT - 01/03/2025 11:59 PM EDT Hospital Encounter [facility] [address] [place] [address] Gross hematuria Discharge Disposition: Home or Self Care 01/03/2025 Travel 12/31/2024 4:00 PM EDT Office Visit [facility] [address] [place] [address] Bert Canela MD Asymptomatic bilateral carotid artery stenosis (Primary Dx); PVD (peripheral vascular disease) ([facility]); Hx of AKA (above knee amputation), left ([facility]); History of stroke; Type 2 diabetes mellitus without complication, unspecified whether halfway insulin use 12/31/2024 2:01 PM EDT - 12/31/2024 11:59 PM EDT Hospital Encounter [facility] Vascular Lab [address] [place] [address] Coronary artery disease involving wainwright heart without angina pectoris, unspecified vessel or lesion type; S/P AKA (above knee amputation) bilateral (CMS/HCC); Acute left arterial ischemic stroke, ICA (internal carotid artery) ([facility]) Discharge Disposition: Home or Self Care 12/31/2024 2:01 PM EDT - 12/31/2024 11:59 PM EDT Hospital Encounter [facility] [address] [facility] [address] [facility] [address] [place] [address] S/P AKA (above knee amputation) bilateral (CMS/HCC); Encounter for surgical aftercare following surgery on the circulatory system Discharge Disposition: Home or Self Care 12/31/2024 Travel from Last 3 Months Immunizations Immunization Administration Dates Next Due Influenza, injectable, quadrivalent, preservativ e free 05/11/2016 Taplet COVID-19 Vaccine (Purple Cap) 12 + 09/30/2020,09/09/2020 [...] in the past 12 m [facility], were you homeless or [...] drink first t rodríguez in the morning (EYE-CONDUIT BENDER) to steady your nerves or to get rid of a hangover? 0 08/15/2024 CAGE Questionnaire Score 0 024 Utilities Answer Date Recorded In the past 12 months has e electric, gas, oil, or water company [...] Support [facility] [address] [place] [address] 03/27/2025 1:00 PM EDT Office Visit [facility] [address] [facility] [address], [address] [place] [address] Cayla Erazo, SPEECH THERAPY TEACHER, DNP [address] [place] [address] 05/16/2025 8:00 AM EDT Office Visit [facility] [place] [address], [address] [place] [address] Karly Gracia MD [address] [place], [place] [address] 06/07/2025 1:00 PM EDT Office Visit [facility] [address] [place] [address] Tom Iraheta MD [address] [place] [address] Health Maintenance Due Date Last [...] - Risk 60-74 years 1-dose series) 2019 [id number] Vaccine (3 - Pfizer risk series) 10/28/2020 [...] this topic Medical Devices Implanted Type Area Brake Operator Sheet Metal Device Identifier Shelf Expiration Date Model / Serial / Lot Stent Ureteral Tria Firm Monofilament 7f/24cm - [id number] Implanted:Qty: 1 on 01/31/2025 by Ceci Mitchell MD at [facility] Right: Kidney [id number] 06/14/2027 [id number] / / [id number] Stent Ureteral Tria Firm Monofilament 7f/24cm - [id number] Implanted:Qty: 1 on 01/31/2025 by Ceci Mitchell MD at [facility] Left: Kidney [employer] [id number] 07/02/2027 [id number] / / [id number] Procedures Procedure Name Priority Date/Time Associated Diagnosis [...] EDT EXTUBATION Routine 02/24/2025 9:49 AM EDT [facility], E/M 30-74 MINUTES Routine 02/24/2025 7:08 AM EDT Acute respiratory failure with hypoxia and hypercapnia Acute kidney injury superimposed on CKD ([facility]) Chronic kidney disease, stage 3a ([facility]) Hyponatremia Acute encephalopathy Sepsis with encephalopathy without septic shock, due to unspecified organism ([facility]) Chronic diastolic (congestive) heart failure ([facility]) POCT GLUCOSE METER UNSOLICITED RESULTS Routine [...] AND TREAT Routine 02/23/2025 10:25 AM EDT [facility], E/M 30-74 MINUTES Routine 02/23/2025 9:10 AM EDT Acute respiratory failure with hypoxia and hypercapnia Acute kidney injury superimposed on CKD ([facility]) Chronic kidney disease, stage 3a ([facility]) Hyponatremia Acute encephalopathy Sepsis with encephalopathy without septic shock, due to unspecified organism ([facility]) VANCOMYCIN, RANDOM, PLASMA Routine 02/23/2025 8:34 AM [...] ANESTHESIA PLACEHOLDER Routine 01/31/2025 9:58 AM EDT UT AN ELECTIVE ENDOTRACHEAL AIRWAY Routine 01/31/2025 9:58 AM EDT UT CYSTO/URETERO/PYELOSC ,BX &/OR FULG LESN 01/31/2025 9:32 [...] 2:27 PM EDT Coronary artery disease involving wainwright heart without angina pectoris, unspecified vessel or lesion type S/P AKA (above knee amputation) bilateral (CMS/HCC) Acute left arterial ischemic stroke, ICA (internal carotid artery) (CMS/HCC) HEPATITIS C ANTIBODY - ED W/REFLEX TO [...] Comment 03/02/2025 8:14 AM EDT HEALTHCARE LAB Fishing Vessel Operator ID Stefanie Frances 025 8:14 AM EDT [facility] LAB Device ID [id number] 03/02/2025 8:14 AM EDT [facility] Specimen Type POC Capillary 03/02/2025 8:14 AM EDT [facility] Blood Capillary blood specimen / Unknown 03/02/2025 8:13 AM EDT 03/02/2025 8:14 AM EDT us Madonna Singleton MD LAB POINT OF CARE TE ST DOCKED DEVICE UNSOLICITED RESULTS Final Result [facility] [address] [place] [address] * SEND HECTOR MESSAGE (03/01/2025 4:15 PM EDT) Only the most recent of2 resultswithin the time period is included. Urine Urine specimen obtained by clean catch procedure / Unknown Non-blood Collection / Unknown 03/01/2025 4:15 PM EDT 03/01/2025 4:26 PM EDT us Madonna Singleton MD LAB URINE ORDERABLES Final Resul t [facility] [address] [place] [address] * Urine Salmon Panel (03/01/2025 4:15 PM [...] ORDERABLES Final Resul t Performing Organization Address [facility] Co de Phone Number [facility] [address] [place] [address] * Urinalysis Microscopic Examination (03/01/2025 4:15 PM EDT) Only the most recent of2 resultswithin the time period is included. Urine Urine specimen obtained by clean catch procedure / Unknown Non-blood Collection / Unknown 03/01/2025 4:15 PM EDT 03/01/2025 4:26 PM EDT us Madonna Singleton MD LAB URINE ORDERABLES Final Resul t Performing Organization Address [facility] de Phone Number [facility] [address] [place] [address] * (ABNORMAL) Urinalysis with reflex microscopic (Culture NOT Included) (03/01/2025 4:15 PM EDT) Only the most recent of2 resultswithin the time period is included. Color, Urine Yellow LAB URINALYSIS - AUTOMATED METHOD 03/01/2025 4:34 PM EDT [facility] Clarity, Urine Cloudy LAB URINALYSIS - AUTOMATED METHOD 03/01/2025 4:34 PM EDT [facility] Spec Mayo, Urine 1.008 1.005 - 1.030 LAB URINALYSIS [...] EDT 03/01/2025 4:26 PM EDT us Madonna Sagheer MD LAB URINE ORDERABLES Final Resul t [facility] [address] [place] [address] * (ABNORMAL) Urine Culture (03/01/2025 4:15 PM EDT) Only the most recent of3 resultswithin the time period is included. Culture 10,000 - 100,000 CFU/mL Enterobacter cloacae complex(A) CHRISTIANO 03/05/2025 12:12 PM EDT [facility] Comment: This isolate has been identified using the FDA Approved Squirroyper CA System Edited result: Previously reported as [...] MICROBIOLOGY - GENERAL ORDER GIO Final Result [facility] [address] [place] [address] * (ABNORMAL) CBC and Differential (03/01/2025 4:08 AM EDT) Only the most recent of4 resultswithin the time period is included. [facility] WBC Count 6.83 3.70 - 10.30 10*3/uL [...] 4:08 AM EDT 03/01/2025 4:42 AM EDT [facility] LAB - 03/01/2025 4:54 AM EDT Therapeutic decision making should be based on absolute values, rather than percentages. us Madonna Sagheer MD LAB BLOOD ORDERABLES Final Resul t Performing Organization Address [facility] Co de Phone Number [facility] [address] [place] [address] * Phosphorus, Plasma (03/01/2025 4:08 AM EDT) Only the most recent of4 resultswithin the time period is included. Phosphorus, Plasma 4.4 2.5 - 4.5 mg/dL 03/01/2025 5:14 AM EDT [facility] Blood Venous blood specimen / Unknown Venipuncture / Unknown 03/01/2025 4:08 AM EDT 03/01/2025 4:43 AM EDT Madonna Singleton MD LAB BLOOD ORDERABLES Final Resul t Performing Organization Address [facility] de Phone Number [facility] [address] [place] [address] * Magnesium, Plasma (03/01/2025 4:08 AM EDT) [...] ORDERABLES Final Resul t Performing Organization Address [facility] Co de Phone Number [facility] [address] [place] [address] * (ABNORMAL) Basic Metabolic Panel, Plasma (03/01/2025 4:08 AM EDT) Only the most recent of4 resultswithin the time period is included. Glucose, [...] [facility] [address] [place] [address] * XR Panorex (02/27/2025 12:13 PM EDT) [...] in the posterior aspect of tooth #31. [place] wear in tooth number 8, 9 and 23. No periapical lucency Procedure Note Lucas Cristobal MD - 02/27/2025 CLINICAL INDICATION: Odontogenic infection TECHNIQUE: XR PANOREX COMPARISON: None. FINDINGS: Rounded lucency in tooth #6. Aggressive destruction in the posterioraspect of tooth #31. [place] wear in tooth number 8, 9 and [...] t [facility] [address] [place] [address] * (ABNORMAL) Renal function panel (02/26/2025 4:51 [...] t [facility] [address] [place] [address] * ECG Adult (02/25/2025 6:38 PM EDT) Only the most recent of4 resultswithin the time period is included. EKG DIAGNOSIS CLASS Abnormal MUSE ECG Ventricular Rate 68 BPM MUSE ECG Atrial Rate 68 BPM MUSE ECG UT Interval 198 ms MUSE ECG QRSD Interval 136 ms MUSE ECG QT Interval 450 ms MUSE ECG QTC Interval 478 ms MUSE ECG P [place] 71 degrees MUSE ECG R [place] 265 degrees MUSE ECG T Wave [place] 50 degrees MUSE ECG Diagnosis Sinus rhythm with marked sinus arrhythmia MUSE ECG Diagnosis Right bundle branch block MUSE ECG Diagnosis Abnormal ECG MUSE ECG Diagnosis MUSE ECG Diagnosis Confirmed by Karly Gracia ([id number]) on 02/26/2025 3:20:41 PM MUSE ECG 02/25/2025 6:38 PM EDT 02/26/2025 3:20 PM EDT us Ludy Hill MD ECG ORDERABLES Final Result Performing Organization Address City/[facility]/ZIP Co de Phone Number MUSE ECG * [...] esult [facility] [address] [place] [address] * [facility], E/M 30-74 MINUTES (02/24/2025 7:08 [...] esult [facility] [address] [place] [address] * (ABNORMAL) Procalcitonin (02/24/2025 1:01 AM EDT) [...] predict 28 day mortality risk. Please consult [email or web address] for more information. Test performed at [facility]. us Daniel Ralph MD LAB BLOOD ORDERABLES Final R esult [facility] [address] [place] [address] * (ABNORMAL) Blood gas panel, venous (02/24/2025 [...] esult [facility] [address] [place] [address] * (ABNORMAL) Comprehensive metabolic panel (02/24/2025 1:01 [...] AM EDT 02/24/2025 1:06 AM EDT us Daniel Ralph MD LAB BLOOD ORDERABLES Final R esult [facility] [address] [place] [address] * Sodium, urine, random (02/23/2025 3:12 PM EDT) Sodium, Urine 31 mmol/L 02/23/2025 4:03 PM EDT [facility] Urine Urine specimen from urinary conduit / Unknown Non-blood Collection / Unknown 02/23/2025 3:12 PM EDT 02/23/2025 3:24 PM EDT us Daniel Ralph MD LAB URINE ORDERABLES Final R esult Performing Organization Address [facility] Co de Phone Number [facility] [address] [place] [address] * Osmolality, urine (02/23/2025 3:12 PM EDT) Osmolality, Urine 408 50 - 1,200 mOsm/kg 02/23/2025 3:59 PM EDT [facility] Urine Urine specimen from urinary conduit / Unknown Non-blood Collection / Unknown 02/23/2025 3:12 PM EDT 02/23/2025 3:23 PM EDT us Daniel Ralph MD LAB URINE ORDERABLES Final R esult Performing Organization Address [facility] de Phone Number [facility] [address] [place] [address] * (ABNORMAL) Sodium (02/23/2025 3:04 PM EDT) [...] ORDERABLES Final R esult Performing Organization Address [facility] Co de Phone Number [facility] [address] [place] [address] * Osmolality (02/23/2025 3:04 PM EDT) Osmolality, Serum 289 280 - 301 mOsm/Kg 02/23/2025 4:11 PM EDT [facility] Blood Venous blood specimen / Unknown Venipuncture / Unknown 02/23/2025 3:04 PM EDT 02/23/2025 3:13 PM EDT us Daniel Ralph MD LAB BLOOD ORDERABLES Final R esult Performing Organization Address [facility] [place] [address] * Streptococcus pneumoniae and Legionella Urinary Antigen (02/23/2025 11:05 AM EDT) Pathologist [facility] Legionella pneumophila serogroup 1 Antigen Result (Urine) Negative Negative 02/24/2025 7:01 AM EDT [facility] Streptococcus pneumoniae Antigen Result (Urine) Negative Negative 02/24/2025 7:01 AM EDT [facility] Urine Urine specimen obtained by clean catch procedure / Unknown Non-blood Collection / Unknown 02/23/2025 11:05 AM EDT 02/23/2025 11:16 AM EDT us Daniel Ralph MD LAB MICROBIOLOGY - GENERAL O RDERABLES Final Result Performing Organization Address [facility] [place] [address] * [facility], E/M 30-74 MINUTES (02/23/2025 9:10 [...] of2 resultswithin the time period is included. Pathologist [facility] Vancomycin, Random, Plasma 25.9 ug/mL 02/23/2025 9:20 AM EDT [facility] Blood Venous blood specimen / Unknown Venipuncture / Unknown 02/23/2025 8:34 AM EDT 02/23/2025 8:50 AM EDT us Daniel Ralph MD LAB BLOOD ORDERABLES Final R esult [facility] [address] [place] [address] * (ABNORMAL) Nasopharyngeal Respiratory Panel (02/23/2025 2:05 AM EDT) Pathologist [facility] Human Rhinovirus/Ent erovirus PCR Result Detected( A) Not Detected 02/23/2025 5:07 AM EDT [facility] Swab Nasopharyngeal structure / [...] Respiratory PCR Panel is performed using the [employer] ePlex instrument. This test is FDA approved for use with Nasopharyngeal swabs only. This test is used for clinical purposes. It should not be regarded as investigational or for research. [facility] Clinical Microbiology Laboratory is certified under the Clinical Laboratory Improvement Amendments of 1988 (CLIA-88) as qualified to perform high complexity clinical laboratory testing. Daniel Ralph MD LAB MICROBIOLOGY - GENERAL O RDERABLES Final Result [facility] [address] [place] [address] * (ABNORMAL) Methicillin Resistant Staphylococcus aureus (MRSA) by PCR (02/23/2025 2:05 AM EDT) Methicillin Resistant Staphylococcus aureus (MRSA) by PCR Detected( A) Not Detected 02/23/2025 4:19 AM EDT [facility] Swab Both anterior nares / [...] Result [facility] [address] [place] [address] * (ABNORMAL) Troponin T, High Sensitivity, 2 [...] 2:04 AM EDT 02/23/2025 2:24 AM EDT Daniel Ralph MD LAB BLOOD ORDERABLES Final R esult Performing Organization Address City/[facility]/ZIP Co de Phone Number [facility] [address] [place] [address] * Anti Xa Level Low Molecular Weight [...] IU/mL LMWH enoxaparin prophylaxis: Not established us Daniel Ralph MD LAB BLOOD ORDERABLES Final R esult Performing Organization Address [facility] Co de Phone Number [facility] [address] [place] [address] * (ABNORMAL) Troponin T, High Sensitivity, 0 [...] ORDERABLES Final R esult Performing Organization Address City/[facility]/ZIP Co de Phone Number [facility] [address] [place] [address] * (ABNORMAL) Quantitative BAL/PAL/Bronch Wash Culture and Gram StainProtected Alveolar Lavage (02/23/2025 12:00 AM EDT) Culture [id number] CFU/mL Mixed upper respiratory jesus(A) 02/24/2025 12:09 [...] O RDERABLES Final Result Performing Organization Address City/[facility]/ZIP Co de Phone Number [facility] [address] [place] [address] * (ABNORMAL) N-Terminal Probnp (02/22/2025 10:03 PM EDT) Only the most recent of2 resultswithin the time period is included. N-Terminal, PROBNP, Plasma 1,542(H) 0 - 899 pg/mL 02/22/2025 10:48 PM EDT [facility] Blood Venous blood specimen / Unknown Venipuncture / Unknown 02/22/2025 10:03 PM EDT 02/22/2025 10:11 PM EDT Bobby Parra MD LAB BLOOD ORDERABLES Final R esult Performing Organization Address [facility] [place] [address] * Maira auris Surveillance by PCR (02/22/2025 10:02 PM EDT) Maira auris PCR Result Not Detected Not Detected 02/24/2025 7:03 AM EDT [facility] Swab (Axilla and Groin) Non-blood Collection / Unknown 02/22/2025 10:02 PM EDT 02/22/2025 10:16 PM EDT Narrative [facility] - 02/24/2025 7:03 AM EDT This PCR assay was developed and its performance characteristics determined by [facility] as appropriate for clinical purposes. This assay has not been cleared or approved by the FDA, but is performed in a CLIA regulated laboratory that is qualified to perform high-complexity testing. Bobby Parra MD LAB MICROBIOLOGY - GENERAL O RDERABLES Final Result Performing Organization Address [facility] [place] [address] * (ABNORMAL) Multi Drug Resistance Test (02/22/2025 10:02 PM EDT) Culture Methicillin-Resist ant Staphylococcus aureus(AA) 02/24/2025 6:58 AM EDT [facility] Swab (Nares and Samantha Rectal) Non-blood Collection / Unknown 02/22/2025 10:02 PM EDT 02/22/2025 10:16 PM EDT Narrative [facility] - 02/24/2025 6:58 AM EDT This test was developed and its performance characteristics determined by the [facility]. Although the media is FDA-approved, it is not FDA-approved for all specimen types submitted. The FDA has determined that such clearance or approval is not necessary. This test is used for surveillance purposes. It should not be regarded as investigational or for research. The [facility] is certified under the Clinical Laboratory Improvement Amendments of 1988 (CLIA-88) as qualified to perform high complexity clinical laboratory testing. Bobby Parra MD LAB MICROBIOLOGY - GENERAL O RDERABLES Final Result [facility] [address] [place] [address] * Drug abuse screen (02/22/2025 10:01 PM [...] URINE ORDERABLES Final Result Performing Organization Address [facility] Co de Phone Number [facility] [address] [place] [address] * (ABNORMAL) Fentanyl Urine Confirm (02/22/2025 10:01 [...] and its performance characteristics determined by [facility]. It has not been cleared or approved by the FDA. The laboratory is regulated under CLIA as qualified to perform high-complexity testing. This test is used for clinical purposes. Testing is performed at the [facility], Special Chemistry Laboratory. Daniel Gordillo MD LAB URINE ORDERABLES Final Result Performing Organization Address [facility] Co de Phone Number [facility] [address] [place] [id number] * (ABNORMAL) POCT arterial blood gas gem (02/22/2025 9:05 PM EDT) pH, Arterial 7.45(H) 7.31 - 7.42 02/22/2025 9:06 PM EDT [facility] pCO2, Arterial 37 35 - 48 mm Hg 02/22/2025 9:06 PM EDT [facility] pO2, Arterial 86 >80 mm Hg 02/22/2025 9:06 PM EDT [facility] SO2, Arterial 98 94 - 98 % 02/22/2025 9:06 PM EDT [facility] FIO2 60.0 % 02/22/2025 9:06 PM EDT [facility] Base Excess, Arterial 1.7 -2 - 3 mmol/L 02/22/2025 9:06 PM [facility] HCO3, Arterial 25.7 22 - 26 mmol/L 02/22[facility]2025 [facility] Total Hemoglobin, Arterial, Whole Blood 9.1(L) 11.2 - 15.7 g/dL 02/22/2025 9:06 PM [facility] Hematocrit, Arterial 27.0(L) 34.0 - 45.0 % 02/22/2025 9:06 PM [facility] Sodium, Arterial 125(L) 136 - 145 mmol/L 02/22/2025 9:06 PM [facility] Potassium, Arterial 4.9 3.6 - 4.9 mmol/L 02/22/2025 9:06 PM [facility] Comment:Hemolyzed, result ma y be falsely increased. Chloride, Whole Blood 95(L) 97 - 107 mmol/L 02/22/2025 9:06 PM [facility] Glucose, Arterial 116(H) 74 - 99 mg/dL 02/22/2025 9:06 PM [facility] Ionized Calcium, Arterial 4.8 4.6 - 5.1 mg/dL 02/22/2025 9:06 PM [facility] Lactate, Arterial 0.8 0.5 - 1.6 mmol/L 02/22/2025 9:06 PM [facility] Body Temperature 37.0 Celsius 02/22/2025 9:06 PM [facility] pH, Temp Corrected, Arterial 7.45(H) 7.31 - 7.42 02/22/2025 9:06 PM [facility] pCO2, Temp Corrected, Arterial 37 35 - 48 mm Hg 02/22/2025 9:06 PM [facility] pO2, Temp Corrected, Arterial 86 >80 mm Hg 02/22/2025 9:06 PM [facility] Fishing Vessel Operator ID Slim Morton 02/22/2025 9:06 PM [facility] Blood, Arterial Whole blood specimen / Unknown 02/22/2025 9:05 PM EDT 02/22/2025 9:06 PM EDT us Daniel Ralph MD LAB POINT OF CARE TE ST DOCKED DEVICE UNSOLICITED RESULTS Final Result Performing Organization Address City/[facility]/ZIP Co de Phone Number [facility] [address] [place] [address] * Blood Culture (Aerobic/Anaerobet Set) (02/22/2025 8:55 [...] GENERAL ORDERABLES Final Result Performing Organization Address [facility]/ZIP Co de Phone Number [facility] [address] [place] [address] * Ionized calcium, serum (02/22/2025 8:36 PM EDT) Ionized Calcium, Serum 4.8 4.6 - 5.3 mg/dL LAB HEMATOLOGY METHOD 02/22/2025 9:42 PM EDT [facility] Blood Venous blood specimen / Unknown Venipuncture / Unknown 02/22/2025 8:36 PM EDT 02/22/2025 8:53 PM EDT us Bobby Parra MD LAB BLOOD ORDERABLES Final R esult Performing Organization Address City/[facility]/ZIP Co de Phone Number [facility] [address] [place] [address] * XR Chest 1 View (02/22/2025 7:05 [...] BLOOD ORDERABLES Final Result Performing Organization Address City/[facility]/[place] [address] * Thyroid Stimulating Hormone, Plasma (02/22/2025 6:41 PM EDT) [facility] Signature Thyroid Stimulating Hormone, Plasma 1.03 0.40 - 4.20 uIU/mL 02/22/2025 7:24 PM EDT [facility] Blood Venous blood specimen / Unknown Venipuncture / Unknown 02/22/2025 6:41 PM EDT 02/22/2025 6:47 PM EDT Daniel Gordillo MD LAB BLOOD ORDERABLES Final Result [facility] [address] [place] [address] * Free T4, Plasma (02/22/2025 6:41 PM EDT) Free T4, Plasma 1.3 0.8 - 1.7 ng/dL 02/22/2025 7:24 PM EDT [facility] Blood Venous blood specimen / Unknown Venipuncture / Unknown 02/22/2025 6:41 PM EDT 02/22/2025 6:47 PM EDT Daniel Gordillo MD LAB BLOOD ORDERABLES Final Result Performing Organization Address City/[facility]/ZIP Co de Phone Number [facility] [address] [place] [address] * (ABNORMAL) Hemoglobin A1c (02/22/2025 6:41 PM [...] esult [facility] [address] [place] [address] * (ABNORMAL) POCT venous blood gas gem (02/22/2025 6:37 PM EDT) pH, Venous 7.28(L) 7.32 - 7.43 02/22/2025 6:38 PM EDT [facility] pCO2, Venous 60(HH) 37 - 52 mm Hg 02/22/2025 6:38 PM EDT [facility] pO2, Venous 41(H) 25 - 40 mm Hg 02/22/2025 6:38 PM EDT [facility] SO2, Venous 72 65 - 80 % 02/22/2025 6:38 PM EDT [facility] Base Excess/Deficit, Venous 0.8 -2 - 3 mmol/L 02/22/2025 6:38 PM EDT [facility] HCO3, Venous 28.2(H) 22 - 26 mmol/L 02/22/2025 6:38 PM EDT [facility] Hemoglobin, Venous 9.2(L) 11.2 - 15.7 g/dL 02/22/2025 6:38 PM EDT [facility] Hematocrit, Venous 28.0(L) 34.0 - 45.0 % 02/22/2025 6:38 PM EDT [facility] Sodium, Venous 126(L) 136 - 145 mmol/L 02/22/2025 6:38 PM EDT [facility] Potassium, Venous 4.6 3.6 - 4.9 mmol/L 02/22/2025 6:38 PM EDT [facility] Comment:Hemolyzed, result ma y be falsely increased. POCT Chloride, Venous 94(L) 97 - 107 mmol/L 02/22/2025 6:38 PM EDT [facility] Glucose, Venous 139(H) 74 - 99 mg/dL 02/22/2025 6:38 PM EDT [facility] Ionized Calcium, Venous 4.9 4.6 - 5.1 mg/dL 02/22/2025 6:38 PM EDT [facility] Lactate, Venous 0.6 0.5 - 2.2 mmol/L 02/22/2025 6:38 PM EDT [facility] Body Temperature 37.0 Celsius 02/22/2025 6:38 PM EDT [facility] pH, Temp Corrected, Venous 7.28(L) 7.32 - 7.43 02/22/2025 6:38 PM EDT [facility] pCO2, Temp Corrected, Venous 60(HH) 37 - 52 mm Hg 02/22/2025 6:38 PM EDT [facility] pO2, Temp Corrected, Venous 41(H) 25 - 40 mm Hg 02/22/2025 6:38 PM EDT [facility] Fishing Vessel Operator ID Joao Jackson 02/22/2025 6:38 PM EDT [facility] Blood, Venous Whole blood specimen / Unknown 02/22/2025 6:37 PM EDT 02/22/2025 6:38 PM EDT Generic Provider Poct LAB POINT OF CARE TEST DOCKED DEVICE UNSOLICITED RESULTS Final Result Performing Organization Address City/State/[facility] Co de Phone Number [facility] [address] [place] [address] * INTUBATION (02/22/2025 6:13 PM EDT) Narrative [...] Tomogra phy 02/22/2025 12:4 8 PM EDT Result [facility] Jordan Carl MD IMG CT PROCEDURES Final Result * FL Less than 1 Hour Intraoperative (01/31/2025 11:14 AM EDT) Narrative IMAGING - 01/31/2025 11:15 AM EDT Images were obtained for surgical purposes. See Ceci Mitchell's surgical note in the patient's chart for the findings. Result [facility] Ceci Mitchell MD IMG FLUOROSCOPY PROCEDURES F inal Result IMAGING * (ABNORMAL) Fungal Culture, Routine (01/31/2025 10:23 AM EDT) Culture Confluent Growth Maira glabrata(A) 02/08/2025 11:50 AM EDT [facility] Urine Urinary bladder structure / Unknown 01/31/2025 10:23 AM EDT 01/31/2025 11:38 AM EDT Comment:Pre-op diagnosis: Gross hematuria Result [facility] Ceci Mitchell MD LAB MICROBIOLOGY - GENERAL O RDERABLES Final Result [facility] [address] [place] [address] * UT AN ELECTIVE ENDOTRACHEAL AIRWAY, PB ANESTHESIA PLACEHOLDER (01/31/2025 9:58 AM EDT) Narrative Migue Seay CRNA - 01/31/2025 9:58 AM EDT Migue Seay CRNA 01/31/2025 10:45 AM Airway Date/Time: 01/31/2025 9:58 AM Reason: elective Airway not difficult General Information and Staff Patient location during procedure: OR RODENT EXTERMINATOR: Migue Seay CRNA Performed: RODENT EXTERMINATOR Patient Condition Indications for airway management: anesthesia [...] following split bolus administration of IV contrast, [id number], 150 mL. Reformatted images in the coronal [...] MD on 01/03/2025 3:33 PM Cayla Erazo SPEECH THERAPY TEACHER, DNP IMG CT PROCEDURES Final Result * [...] are demonstrated at the levels of the BANK SALES AND SERVICE MANAGER, ADMINISTRATION VICE PRESIDENT and DPA. Segmental pressures are within normal limits with a ADMINISTRATION VICE PRESIDENT JASEN of 0.98 (138 mmHg) and a DPA JASEN of 1.28 (181 mmHg). Digit pressures are 115 mmHg. Left: AKA is noted. Multiphasic waveforms are demonstrated at the level of the BANK SALES AND SERVICE MANAGER. 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 COMPARISON: None. FINDINGS: Right: Multiphasic waveforms are demonstrated at the levels of the BANK SALES AND SERVICE MANAGER,ADMINISTRATION VICE PRESIDENT and DPA. Segmental pressures are within normal limits with a ADMINISTRATION VICE PRESIDENT ABIof 0.98 (138 mmHg) and a DPA JASEN of 1.28 (181 mmHg). Digit pressures ikl041 mmHg. Left: AKA is noted. Multiphasic waveforms are demonstrated at the level ofthe BANK SALES AND SERVICE MANAGER. IMPRESSION: Right: Normal study; No evidence of [...] MD CV VASCULAR PROCEDURES Final Result * Hepatitis C Antibody - ED (08/15/2024 5:35 AM EST) Hepatitis C Antibody Negative Negative 08/15/2024 7:08 AM EST [facility] Blood Venous blood specimen / Unknown Venipuncture / Unknown 08/15/2024 5:35 AM EST 08/15/2024 6:06 AM EST Marcy Zhong MD LAB BLOOD ORDERABLES Final Resu lt [facility] [address] [place] [address] * Cytology (04/10/2013 12:00 AM EDT) Specimen from axilla structure obtained by fine needle aspiration biopsy (specimen) 04/10/2013 04/10/2013 2:2 3 PM EDT Narrative [facility] - 04/10/2013 3:59 PM EDT [facility] MR #: [id number] [facility] YADIRA EILEEN PeñalozaSebastian [id number] 1960 (Age: 52) FW Collect Date: 04/10/2013 00:00 Receipt Date: 04/10/2013 14:23 Page 1 DEPARTMENT OF PATHOLOGY AND LABORATORY MEDICINE CYTOPATHOLOGY REPORT Email: [email or web address] [phone] ATTENDING MD/Practitioner: Kimmie Aguilera MD Service: BCC [...] w/ 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 Jonatan [...] RECEPTOR POSITIVE STATUS (ER POSITIVE) F: A; 46832 ASP INTER, 41934, 17418 SNOMED CODES: A; [id number] [id number] [id number] I41090 FV8324 P1149 [id number] A resident has participated in this service. A pathologist has performed and is responsible for the reported pathologic evaluation. Historical Provider MD LAB PATHOLOGY ORDERABLES Final [...] Patient has decision-making capacity? Yes Care Teams City Jailer Relationship Specialty Start Date End Date Vignesh Pickens MD [address] [place] [address] PCP - General 12/31/24 Cayla Erazo APRN, [place] [address] [address] Nurse Practitioner Urology 12/20/24
--- NOTE | 2025-03-27 11:36 | CT_ITS ---
FINAL REPORT TECHNIQUE: Axial CT images were performed through the head. Coronal reformatted images were submitted. This study was performed with techniques to keep radiation doses as low as reasonably achievable (ALARA). Individualized dose reduction techniques using automated exposure control or adjustment of mA and/or kV according to the patient's size were employed. CLINICAL HISTORY: AMS COMPARISON: 03/13/2025 FINDINGS: There is moderate cortical atrophy. There is encephalomalacia within the superior right parietal lobe, right frontal lobe, and right occipital lobe all of which appear stable as compared to previous. The ventricles are normal in size. There is no evidence of hemorrhage. There is no mass or edema identified. There is no abnormal extra-axial fluid seen. The sinuses are well aerated. 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 Reviewed, Interpreted and Dictated by Huber Evans MD Transcribed by Anel Cooley Authenticated and [facility]
--- NOTE | 2025-03-27 11:36 | XR_ITS ---
FINAL REPORT CLINICAL HISTORY: Dyspnea COMPARISON: 03/13/2025 FINDINGS: SINGLE VIEW CHEST There is mild cardiomegaly. The mediastinum is unremarkable. The lungs are underinflated with mild chronic changes. There is no pneumothorax. Right shoulder prosthesis is identified. IMPRESSION: No acute process. Reviewed, Interpreted and Dictated by Huber Evans MD Transcribed by Anel Cooley Authenticated and [facility]
--- NOTE | 2025-03-27 11:36 | CT_ITS ---
FINAL REPORT TECHNIQUE: After the administration of intravenous contrast, axial images were obtained through the abdomen and pelvis by computed tomography. This study was performed with technique to keep radiation doses as low as reasonably achievable, (ALARA). Individualized dose reduction techniques using automated exposure control or adjustment of the MA and/or KV according to the patient's size were employed. CLINICAL HISTORY: AMS COMPARISON: 03/04/2025 FINDINGS: Abdomen: The lung bases are clear. The liver is normal in size and attenuation. The spleen is mildly enlarged at 13.5 cm. Gallbladder is surgically absent. The adrenals are normal. The pancreas is unremarkable. The aorta is normal in caliber. There is no free fluid or adenopathy. There is moderate bilateral hydroureteronephrosis to the level of the UVJ's with enhancement of the urothelium bilaterally. There is retroperitoneal adenopathy with increased in lymph node size now measuring up to 2.4 cm in craniocaudad dimension. Pelvis: The appendix is not identified. There is abnormal thickening of the urinary bladder wall measuring up to 1.2 cm with surrounding inflammatory reaction. There is no free fluid or adenopathy. IMPRESSION: Moderate bilateral hydroureteronephrosis with thickening of the urinary bladder wall and worsening retroperitoneal adenopathy. Underlying neoplasm not excluded. Recommend cystoscopy and consultation with urology. Reviewed, Interpreted and Dictated by Huber Evans MD Transcribed by Betty Odonnell Authenticated and [facility]
--- OUTSIDE RECORDS SUMMARY | 2025-03-27 11:36 | XMS_ITS | Clinical Summary ---
Author Organization [employer] ([place], [place], [place], [place]) Address [address] [place] [address] Care Team Providers Care Semiconductor Package Symbol Stamper Name Role Phone [facility], Provider Not In The System MD Primary [...] Do you speak a language other than Serbian at ho me? No 12/09/2023 Do you [...] 11.7 % 11/25/2023 5:31 PM EDT [facility] Comment: Hemoglobin A1C levels are related to mean glucose during the preceding 2-3 months. Less than 7% demonstrates glycemic control in diabetic patients. Hemoglobin AlC % Suggested Diagnosis > or = 6.5 Diabetic 5.7 - 6.4 Prediabetic <5.7 Non-diabetic eAVG Glucose 289.09 mg/dL 11/25/2023 5:31 PM EDT [facility] Blood Venipuncture / Unknown 11/25/2023 11:24 AM EDT 11/25/2023 1:46 PM EDT us Radha Ram MD LAB BLOOD ORDERABLES Fi nal Result [facility] [address] [phone] from Last 3 Months or Most Recently Relevant to Health Maintenance Insurance [facility] [place] [id number] MEDICARE PART A B [place] Advance Directives For more information, please contact: [phone] * Full Code (Latest Code Status on [...] Name Relationship Healthcare Agent Relationshi p Communication [place] Dante Sister First Alternate Healthcare Decision-Maker Care Teams Semiconductor Package Symbol Stamper Relationship Specialty Start Date End Date [facility], Provider Not In The System, [place] [address] PCP - General 10/05/23
--- OUTSIDE RECORDS SUMMARY | 2025-03-27 11:36 | XMS_ITS | Encounter Summary ---
Author Organization [facility] Address [address] [place] [address] Care Team Providers Care Machine Precision Etcher Name Role Phone Daniel Barba MD Primary Care Provider [phone] Judy Huff CARTOON ANIMATOR Unavailable Unavailabl Cayla Louie APRN, FR[place]ERICK Unavailable [phone] Vignesh Pickens MD Primary Care Provider [phone] Encounter Details Date Type Department Care Team (Late st Contact Info) Description 07/28/2022 Orders Only External Location [address] [place] [address] Gregg Morgan MD [address] [place], [place] [id number] Social History Tobacco Use Types Packs/Day Years [...] Support Medical Office Building Lab [address] [place] [address] 03/27/2025 1:00 PM EDT Office Visit Medical Office Building Urology [address] [facility], [address] [place] [address] Castro, Cayla E, CUPROUS CHLORIDE HELPER, DNP [address] [place] [address] 05/16/2025 8:00 AM EDT Office Visit [facility] [place] [address] [facility], [address] [place] [address] Karly Gracia MD [address] [place] [address] 06/07/2025 1:00 PM EDT Office Visit [facility] [address] [place] [address] Tom Iraheta MD [address] [place] [address] documented as of this encounter [...] as of this encounter Care Teams Machine Precision Etcher Relationship Specialty Start Date End Date Daniel Barba MD [address] [place] [address] PCP - General 01/02/21 12/30/24 Vignesh Pickens MD [address] [place] [address] PCP - General 12/31/24 Judy Huff LPN [facility] TCM Nurse 08/24/24 08/24/24 Cayla Erazo, LIZANDRO, [place] [address] [address] Nurse Practitioner Urology 12/20/24 documented as of this encounter
--- OUTSIDE RECORDS SUMMARY | 2025-03-27 11:36 | XMS_ITS | Encounter Summary ---
Author Organization [facility] Address [address] [place] [address] Care Team Providers Care Shank Burnisher Name Role Phone Cayla Erazo APRN, DNP Unavailable [phone] Vignesh Pickens MD Primary Care Provider [phone] Encounter Details Date Type Department Care Team [...] any time in the past 12 m [facility], were you homeless or living [...] drink first t rodríguez in the morning (EYE-STAND UP COMEDIAN) to steady your nerves or to get [...] things Not at all 03/07/2025 10:14 AM Shruthi Willis LPN Feeling down, depressed, or hopeless Not at all 03/07/2025 10:14 AM Shruthi Willis LPN Patient Health Questionnaire-2 Score 0 03/07/2025 10:14 AM Shruthi Willis LPN * If you checked off any problems on this questionnaire so far, Question Answer Date of Assessment Author How difficult have these problems made it for you to do your work, take care of things at home, or get along with other people? Not difficult at all 03/07/2025 10:14 AM Shruthi Willis LPN documented as of this encounter Plan of Treatment Upcoming Encounters Date Type Department Care Team (Late st Contact Info) Description 03/27/2025 11:50 AM EDT Clinical Support Medical Office Building Lab [address] [place] [address] 03/27/2025 1:00 PM EDT Office Visit Medical Office Building Urology [address] [facility], [address] [place] [address] Cayla Erazo, CULTURIST, [facility] [address] [facility] [address] [place] [address] 05/16/2025 8:00 AM EDT Office Visit [facility] [place] [address] [facility], [address] [place] [address] Karly Gracia MD [address] [place] [address] 06/07/2025 1:00 PM EDT Office Visit [facility] [address] [place] [address] Tom Iraheta MD [address] [place] [address] documented as of this encounter [...] documented as of this encounter Care Teams Shank Burnisher Relationship Specialty Start Date End Date Vignesh Pickens MD [address] [place] [address] PCP - General 12/31/24 Cayla Erazo APRN, FR[place]ER[place] [address] [facility] [address] [place] [address] Nurse Practitioner Urology 12/20/24 documented as of this encounter
--- OUTSIDE RECORDS SUMMARY | 2025-03-27 11:36 | XMS_ITS | Encounter Summary ---
Author Organization [facility] Address [address] [place] [address] Care Team Providers Care Ship Runner Name Role Phone Daniel Barba MD Primary Care Provider [phone] Judy Huff WET FINISHER Unavailable Unavailabl Cayla Louie APRN, DNP Unavailable [phone] Vignesh Pickens MD Primary Care Provider + [phone] Encounter Details Date Type Department Care Team (Late Contact Info) Description 08/11/2022 Orders Only External Location [address] [place] [address] Provider, External Social History Tobacco Use Types [...] Care Team (Late Contact Info) Description 03/27/2025 11:50 AM EDT Clinical Support Medical Office Building Lab [address] [place] [address] 03/27/2025 1:00 PM EDT Office Visit Medical Office Building Urology [address] [facility], [address] [place] [address] Cayla Erazo APRN, DNP [address] [facility] [address] [place] [address] 05/16/2025 8:00 AM EDT Office Visit [facility] [place] [address] [facility], [address] [place] [address] Karly Gracia MD [address] [place] [address] 06/07/2025 1:00 PM EDT Office Visit [facility] [address] [place] [address] Tom Iraheta MD [address] [place] [address] documented as of this encounter [...] documented as of this encounter Care Teams Ship Runner Relationship Specialty Start Date End Date Daniel Babra MD [address] [place] [address] PCP - General 01/02/21 12/30/24 Vignesh Pickens MD [address] [place] [address] PCP - General 12/31/24 Judy Huff, JHONNY [facility] Nurse 08/24/24 08/24/24 Cayla Erazo, PIT INSPECTOR, DNP [address] [place] [address] Nurse Practitioner Urology 12/20/24 documented as of this encounter
--- OUTSIDE RECORDS SUMMARY | 2025-03-27 11:37 | XMS_ITS | Encounter Summary ---
Author Organization [facility] Address [address] [place] [address] Care Team Providers Care Vmware Engineer Name Role Phone Cayla Erazo APRN, DNP Unavailable [phone] Vignesh Pickens MD Primary Care Provider [phone] Encounter Details Date Type Department Care Team (Late st Contact Info) Description 02/22/2025 Orders Only External Location [address] [place] [address] Jordan Carl MD [address] [place] [address] Social History Tobacco Use Types [...] first t rodríguez in the morning (EYE-ELECTRONIC SPECIALIST) to steady your nerves or to [...] Support Medical Office Building Lab [address] [place] [address] 03/27/2025 1:00 PM EDT Office Visit Medical Office Building Urology [address] [facility], [address] [place] [address] Cayla Erazo, DENTAL ASSISTANT INSTRUCTOR, [facility] [address] [place] [address] 05/16/2025 8:00 AM EDT Office Visit [facility] [place] [address] [facility], [address] [place] [address] Karly Gracia MD [address] [place] [address] 06/07/2025 1:00 PM EDT Office Visit [facility] [address] [place] [address] Tom Iraheta MD [address] [place] [address] documented as of this encounter Procedures Procedure [...] documented as of this encounter Care Teams Vmware Engineer Relationship Specialty Start Date End Date Vignesh Pickens MD [address] [place] [address] PCP - General 12/31/24 Cayla Erazo APRN, DNP [address] [place] [address] Nurse Practitioner Urology 12/20/24 documented as of this encounter
--- OUTSIDE RECORDS SUMMARY | 2025-03-27 11:37 | XMS_ITS | Encounter Summary ---
Author Organization [facility] Address [address] [place] [address] Care Team Providers Care Pathology Laboratory Director Name Role Phone Cayla Erazo APRN, DNP Unavailable [phone] Vignesh Pickens MD Primary Care Provider [phone] Encounter Details Date Type Department Care Team (Late st Contact Info) Description 02/22/2025 Orders Only External Location [address] [place] [address] Jordan Carl MD [address] [place] [address] Social History Tobacco Use Types [...] drink first t rodríguez in the morning (EYE-NUTRITION SERVICES ASSISTANT) to steady your nerves or to [...] Support Medical Office Building Lab [address] [place] [address] 03/27/2025 1:00 PM EDT Office Visit Medical Office Building Urology [address] [facility], [address] [place] [address] Cayla Erazo, JET MECHANIC, [facility] [address] [place] [address] 05/16/2025 8:00 AM EDT Office Visit [facility] [place] [address] [facility], [address] [place] [address] Karly Gracia MD [address] [place] [address] 06/07/2025 1:00 PM EDT Office Visit [facility] [address] [place] [address] Tom Iraheta MD [address] [place] [address] documented as of this encounter Procedures Procedure [...] documented as of this encounter Care Teams Pathology Laboratory Director Relationship Specialty Start Date End Date Vignesh Pickens MD [address] [place] [address] PCP - General 12/31/24 Cayla Erazo APRN, DNP [address] [place] [address] Nurse Practitioner Urology 12/20/24 documented as of this encounter
--- OUTSIDE RECORDS SUMMARY | 2025-03-27 11:37 | XMS_ITS | Encounter Summary ---
Author Organization [facility] Address [address] [place] [address] Care Team Providers Care Percussion Instructor Name Role Phone Cayla Erazo APRN, DNP Unavailable [phone] Vignesh Pickens MD Primary Care Provider [phone] Encounter Details Date Type Department Care Team [...] any time in the past 12 m [facility], were you homeless or [...] drink first t rodríguez in the morning (EYE-TOWER ERECTOR) to steady your nerves or to get [...] No 02/28/2025 8:00 AM EDT Andria Light, JIMI 6. Suicidal Behavior (Lifetime) No 8:00 AM EDT Gayle Light, RN documented as of this encounter Plan of Treatment Upcoming Encounters Date Type Department Care Team (Late st Contact Info) Description 03/27/2025 11:50 AM EDT Clinical Support Medical Office Building Lab [address] [address] 03/27/2025 1:00 PM EDT Office Visit Medical Office Building Urology [address] [facility], [address] [place] [address] Cayla Erazo, AUDIT LEAD, DNP [address] [place] [address] 05/16/2025 8:00 AM EDT Office Visit [facility] [place] [address] [facility], [address] [place] [address] Karly Gracia MD [address] [place] [address] 06/07/2025 1:00 PM EDT Office Visit [facility] [address] [place] [address] Tom Iraheta MD [address] [place] [address] documented as of this encounter [...] documented as of this encounter Care Teams Percussion Instructor Relationship Specialty Start Date End Date Vignesh Pickens MD [address] [place] [address] PCP - General 12/31/24 Cayla Erazo APRN, DNP [address] [facility] [address] [place] [address] Nurse Practitioner Urology 12/20/24 documented as of this encounter
--- OUTSIDE RECORDS SUMMARY | 2025-03-27 11:37 | XMS_ITS | Encounter Summary ---
Author Organization [facility] Address [address] [place] [address] Care Team Providers Care Companion Name Role Phone Cayla Erazo APRN, DNP Unavailable [phone] Vignesh Pickens MD Primary Care Provider [phone] Encounter Details Date Type Department Care Team (Late st Contact Info) Description 02/22/2025 Orders Only External Location [address] [place] [address] Jordan Carl MD [address] [place] [address] Social History Tobacco Use Types [...] first t rodríguez in the morning (EYE-DIRECTOR TELEHEALTH) to steady your nerves or to get [...] Support Medical Office Building Lab [address] [place] [address] 03/27/2025 1:00 PM EDT Office Visit Medical Office Building Urology [address] [facility], [address] [place] [address] Cayla Erazo, CLINICAL RESEARCH DIRECTOR, [facility] [address] [place] [address] 05/16/2025 8:00 AM EDT Office Visit [facility] [place] [address] [facility], [address] [place] [address] Karly Gracia MD [address] [place] [address] 06/07/2025 1:00 PM EDT Office Visit [facility] [address] [place] [address] Tmo Iraheta MD [address] [place] [address] documented as of this encounter Procedures Procedure [...] documented as of this encounter Care Teams Companion Relationship Specialty Start Date End Date Vignesh Pickens MD [address] [place] [address] PCP - General 12/31/24 Cayla Erazo APRN, DNP [address] [place] [address] Nurse Practitioner Urology 12/20/24 documented as of this encounter
--- OUTSIDE RECORDS SUMMARY | 2025-03-27 11:37 | XMS_ITS | Encounter Summary ---
Author Organization [facility] Address [address] [place] [address] Care Team Providers Care Ceramics Machine Operator Name Role Phone Cayla Erazo APRN, DNP Unavailable [phone] Vignesh Pickens MD Primary Care Provider [phone] Encounter Details Date Type Department Care Team (Late st Contact Info) Description 02/22/2025 Orders Only External Location [address] [place] [address] Jordan Carl MD [address] [place] [address] Social History Tobacco Use Types [...] drink first t rodríguez in the morning (EYE-PEDIATRIC CLINICAL DIETICIAN) to steady your nerves or to get [...] Support Medical Office Building Lab [address] [place] [address] 03/27/2025 1:00 PM EDT Office Visit Medical Office Building Urology [address] [facility], [address] [place] [address] Cayla Erazo, MEDICAL PATHOLOGIST, [facility] [address] [place] [address] 05/16/2025 8:00 AM EDT Office Visit [facility] [place] [address] [facility], [address] [place] [address] Karly Gracia MD [address] [place] [address] 06/07/2025 1:00 PM EDT Office Visit [facility] [address] [place] [address] Tom Iraheta MD [address] [place] [address] documented as of this encounter Procedures Procedure [...] documented as of this encounter Care Teams Ceramics Machine Operator Relationship Specialty Start Date End Date Vignesh Pickens MD [address] [place] [address] PCP - General 12/31/24 Cayla Erazo APRN, DNP [address] [place] [address] Nurse Practitioner Urology 12/20/24 documented as of this encounter
--- OUTSIDE RECORDS SUMMARY | 2025-03-27 11:37 | XMS_ITS | Encounter Summary ---
Author Organization [facility] Address [address] [place] [address] Care Team Providers Care Survey And Mapping Technician Name Role Phone Cayla Erazo APRN, FREDERICK Unavailable [phone] Vignesh Pickens MD Primary Care Provider [phone] Encounter Details Date Type Department Care Team (Late st Contact Info) Description 03/04/2025 Results Follow-Up [facility] Medicine Virtual Dept. [address] [place] [address] Madonna Singleton MD [address] [place] [address] Social History Tobacco Use Types Packs/Day Years [...] drink first t rodríguez in the morning (EYE-SLICING MACHINE FEEDER) to steady your nerves or [...] Support Medical Office Building Lab [address] [place] [address] 03/27/2025 1:00 PM EDT Office Visit Medical Office Building Urology [address] [facility], [address] [place] [address] Cayla Erazo, AERIAL GUNNER SUPERINTENDENT, DNP [address] [facility] [address] [place] [address] 05/16/2025 8:00 AM EDT Office Visit [facility] [place] [address] [facility], [address] [place] [address] Karly Gracia MD [address] [place] [address] 06/07/2025 1:00 PM EDT Office Visit [facility] [address] [place] [address] Tom Iraheta MD [address] [place] [address] documented as of this encounter [...] documented as of this encounter Care Teams Survey And Mapping Technician Relationship Specialty Start Date End Date Vignesh Pickens MD [address] [place] [address] PCP - General 12/31/24 Cayla Erazo APRN, DNP [address] [facility] [address] [place] [address] Nurse Practitioner Urology 12/20/24 documented as of this encounter
--- OUTSIDE RECORDS SUMMARY | 2025-03-27 11:37 | XMS_ITS | Encounter Summary ---
Author Organization [facility] Address [address] [place] [address] Care Team Providers Care Rail Transit Operator Name Role Phone Cayla Erazo APRN, DNP Unavailable [phone] Vignesh Pickens MD Primary Care Provider [phone] Encounter Details Date Type Department Care Team [...] drink first t rodríguez in the morning (EYE-MEDIA MARKETING MANAGER) to steady your nerves or [...] Support Medical Office Building Lab [address] [place] [address] 03/27/2025 1:00 PM EDT Office Visit Medical Office Building Urology [address] [facility], [address] [place] [address] Cayla Erazo, BAD WORK GATHERER, DNP [address] [place] [address] 05/16/2025 8:00 AM EDT Office Visit [facility] [place] [address] [place] [address] Karly Gracia MD [address] [place] [address] 06/07/2025 1:00 PM EDT Office Visit [facility] [address] [place] [address] Tom Iraheta MD [address] [place] [address] documented as of this encounter [...] documented as of this encounter Care Teams Rail Transit Operator Relationship Specialty Start Date End Date Vignesh Pickens MD [address] [place] [address] PCP - General 12/31/24 Cayla Erazo APRN, DNP [address] [address] Nurse Practitioner Urology 12/20/24 documented as of this encounter
--- OUTSIDE RECORDS SUMMARY | 2025-03-27 11:37 | XMS_ITS | Referral Summary ---
Author Organization [employer] ([place], [place], [place], [place]) Address [address] [place] [address] Care Team Providers Care Eligibility Specialist Name Role Phone [facility], Provider Not In The System MD [...] Do you speak a language other than [place] at ho me? No 12/09/2023 Do you [...] 11.7 % 11/25/2023 5:[address] [facility] Comment: Hemoglobin A1C levels are related to mean glucose during the preceding 2-3 months. Less than 7% demonstrates glycemic control in diabetic patients. Hemoglobin AlC % Suggested Diagnosis > or = 6.5 Diabetic 5.7 - 6.4 Prediabetic <5.7 Non-diabetic eAVG Glucose 289.09 mg/dL 11/25/2023 5:[address] [facility] Blood Venipuncture / Unknown 11/25/2023 11:24 AM EDT 11/25/2023 1:46 PM EDT Radha Ram MD LAB BLOOD ORDERABLES Fi nal Result [facility] [address] [place] [address], [facility] [phone] from Last 3 Months or Most Recently Relevant to Health Maintenance Insurance MEDICARE PART A B MEDICAID OF [place] Advance Directives For more information, please contact: [phone] * Full Code (Latest Code Status on [...] Sister First Alternate Healthcare Decision-Maker Care Teams Eligibility Specialist Relationship Specialty Start Date End Date [facility], Provider Not In The System, [place] [address] PCP - General 10/05/23
--- OUTSIDE RECORDS SUMMARY | 2025-03-27 11:37 | XMS_ITS | Encounter Summary ---
Author Organization [facility] Address [address] [place] [address] Care Team Providers Care Engineering Test Mechanic Name Role Phone Cayla Erazo APRN, DNP Unavailable [phone] Vignesh Pickens MD Primary Care Provider [phone] Encounter Details Date Type Department Care Team [...] drink first t rodríguez in the morning (EYE-TECHNOLOGY TEACHER) to steady your nerves or to [...] Support Medical Office Building Lab [address] [place] [address] 03/27/2025 1:00 PM EDT Office Visit Medical Office Building Urology [address] [facility], [address] [place] [address] Cayla Erazo, STAFF AIR TACTICAL OFFICER, DNP [address] [place] [address] 05/16/2025 8:00 AM EDT Office Visit [facility] [place] [address] [place] [address] Karly Gracia MD [address] [place] [address] 06/07/2025 1:00 PM EDT Office Visit [facility] [address] [place] [address] Tom Iraheta MD [address] [place] [address] documented as of this encounter [...] documented as of this encounter Care Teams Engineering Test Mechanic Relationship Specialty Start Date End Date Vignesh Pickens MD [address] [place] [address] PCP - General 12/31/24 Cayla Erazo APRN, DNP [address] [facility] [place] [address] Nurse Practitioner Urology 12/20/24 documented as of this encounter
--- OUTSIDE RECORDS SUMMARY | 2025-03-27 11:37 | XMS_ITS | Encounter Summary ---
Author Organization [facility] Address [address] [place] [address] Care Team Providers Care Brush Worker Name Role Phone Daniel Barba MD Primary Care Provider [phone] Cayla Erazo APRN, [facility] Unavailable [phone] Vignesh Pickens MD Primary Care Provider [phone] Encounter Details Date Type Department Care Team (Late st Contact Info) Description 10/19/2024 Orders Only External Location [address] [place] [address] Provider, External Social History Tobacco Use Types [...] in the past 12 m [facility], were you homeless or living [...] drink first t rodríguez in the morning (EYE-SLIP COVER ESTIMATOR) to steady your nerves or to [...] Support Medical Office Building Lab [address] [place] [address] 03/27/2025 1:00 PM EDT Office Visit Medical Office Building Urology [address] [facility], [address] [place] [address] Cayla Erazo, WOODWIND REEDS CUTTER, DNP [address] [place] [address] 05/16/2025 8:00 AM EDT Office Visit [facility] [place] [address] [facility], [address] [place] [address] Karly Gracia MD [address] [place] [address] 06/07/2025 1:00 PM EDT Office Visit [facility] [address] [facility] [address] [place] [address] Tom Iraheta MD [address] [place] [address] documented as of this encounter [...] documented as of this encounter Care Teams Brush Worker Relationship Specialty Start Date End Date Daniel Barba MD [address] [place] [address] PCP - General 01/02/21 12/30/24 Vignesh Pickens MD [address] [place] [address] PCP - General 12/31/24 Calya Erazo APRN, DNP [address] [place] [address] Nurse Practitioner Urology 12/20/24 documented as of this encounter
--- OUTSIDE RECORDS SUMMARY | 2025-03-27 11:37 | XMS_ITS | Encounter Summary ---
Author Organization [facility] Address [address] [place] [address] Care Team Providers Care Senior Android Developer Name Role Phone Cayla Erazo APRN, DNP Unavailable [phone] Vignesh Pickens MD Primary Care Provider [phone] Encounter Details Date Type Department Care Team [...] any time in the past 12 m [facility], were you homeless or [...] first t rodríguez in the morning (EYE-SUPERVISOR DAIRY SANITATION) to steady your nerves or to get [...] Support Medical Office Building Lab [address] [address] 03/27/2025 1:00 PM EDT Office Visit Medical Office Building Urology [address] [facility], [address] [place] [address] Cayla Erazo, COMMUNITY ENGAGEMENT REPRESENTATIVE, DNP [address] [place] [address] 05/16/2025 8:00 AM EDT Office Visit [facility] [place] [address] [facility], [address] [place] [address] Karly Gracia MD [address] [place] [address] 06/07/2025 1:00 PM EDT Office Visit [facility] [address] [place] [address] Tom Iraheta MD [address] [place] [address] documented as of this encounter [...] as of this encounter Care Teams Senior Android Developer Relationship Specialty Start Date End Date Vignesh Pickens MD [address] [place] [address] PCP - General 12/31/24 Cayla Erazo APRN, FREDERICK [address] [place] [address] Nurse Practitioner Urology 12/20/24 documented as of this encounter
--- OUTSIDE RECORDS SUMMARY | 2025-03-27 11:38 | XMS_ITS | Encounter Summary ---
Author Organization [facility] Address [address] [place] [address] Care Team Providers Care State Assessed Properties Director Name Role Phone Cayla Erazo APRN, DNP Unavailable [phone] Vignesh Pickens MD Primary Care Provider [phone] Encounter Details Date Type Department Care Team (Late st Contact Info) Description 03/01/2025 Telephone [facility] raisin separator operator [facility] [address] [address] Dental, Surgeon, [address] [place] [address] Social History Tobacco Use Types Packs/Day Years [...] drink first t rodríguez in the morning (EYE-HEAVY FORGER HELPER) to steady your nerves or to [...] Behavior (Lifetime) No 8:00 AM EDT Gayle Ligth, JIMI documented as of this encounter Plan of Treatment Upcoming Encounters Date Type Department Care Team (Late st Contact Info) Description 03/27/2025 11:50 AM EDT Clinical Support Medical Office Building Lab [address] [place] [address] 03/27/2025 1:00 PM EDT Office Visit Medical Office Building Urology [address] [facility], [address] [place] [address] Cayla Erazo, MANAGER AGRICULTURAL, [facility] [address] [facility] [address] [place] [address] 05/16/2025 8:00 AM EDT Office Visit [facility] [place] [address] [facility], [address] [place] [address] Karly Gracia MD [address] [place] [address] 06/07/2025 1:00 PM EDT Office Visit [facility] [address] [place] [address] Tom Iraheta MD [address] [place] [address] documented as of this encounter [...] documented as of this encounter Care Teams State Assessed Properties Director Relationship Specialty Start Date End Date Vignesh Pickens MD [address] [place] [address] PCP - General 12/31/24 Cayla Erazo APRN, FREDERICK [address] [facility] [address] [place] [address] Nurse Practitioner Urology 12/20/24 documented as of this encounter
--- NOTE | 2025-03-27 11:44 | CT_ITS ---
FINAL REPORT TECHNIQUE: The patient was injected with IV contrast. Axial images were obtained through the chest in a PE protocol. 3-D reconstruction images were also performed. Individualized dose reduction techniques using automated exposure control or adjustment of the MA and/or KV according to patient's size were employed. CLINICAL HISTORY: SOA, sepsis, immobile COMPARISON: 02/22/2025 FINDINGS: Mediastinal vasculature is adequately opacified. No pulmonary artery filling defects are identified to suggest PE. Streak artifact is seen from right shoulder prosthesis. There is moderate coronary artery calcification. There is no axillary adenopathy. There is no hilar or mediastinal adenopathy. The heart size is normal. There is no pericardial or pleural effusion. Limited images of the upper abdomen are unremarkable. No suspicious infiltrate or nodule is identified. IMPRESSION: No evidence of pulmonary embolism. Reviewed, Interpreted and Dictated by Huber Evans MD Transcribed by Anel Cooley Authenticated and [facility]
[2025-03-27 11:47] LABS: Hematocrit 34.5 % (37.0-47.0); Hemoglobin 10.3 g/dL (12.2-16.2); Immature Granulocytes % 0.3 %; Mean Corpuscular HGB Conc 29.9 g/dL (31.8-35.4); Mean Corpuscular Hemoglobin 25.9 pg (27.0-31.2); Mean Corpuscular Volume 86.9 fl (81-99); Nucleated Red Blood Cells % 0 %; Platelet Count 344 K/mm3 (142-424); Red Blood Count 3.97 M/mm3 (4.20-5.40); Red Cell Distribution Width-SD 50.1 fL; White Blood Count 10.0 K/mm3 (4.8-10.8)
--- NOTE | 2025-03-27 11:50 | ECG_ITS ---
APPROVED REPORT Exam: Resting ECG HR:100 bpm ECG Measurements Heart Rate 100 AXES AR 193 P 63 QRSd 113 QRS 179 QT 332 T 50 QTc 389 Conclusion SINUS TACHYCARDIA RIGHT AXIS DEVIATION [QRS AXIS > 100] LOW QRS VOLTAGE IN PRECORDIAL LEADS [QRS DEFLECTION < 1.0 mV IN CHEST LEADS] PATTERN CONSISTENT WITH PULMONARY DISEASE RIGHT BUNDLE BRANCH BLOCK [120+ ms QRS DURATION, UPRIGHT V1, 40+ ms S IN I/aVL/V4/V5/V6] No STEMI Electronically signed by : TABITHA VERGARA, 03/28/2025 06:40:09
[2025-03-27 11:55] LABS: VBG HCO3 28.9 mmol/L (23-30); VBG PH 7.25 mmol/L (7.31-7.41); VBG PO2 37.2 mmol/L (28-40)
[2025-03-27 12:00] LABS: Lactate Venous 4.0 mmol/L (0.4-2.0); VBG PCO2 66.9 mmol/L (35-51)
[2025-03-27 12:02] LABS: Albumin Level 4.2 g/dl (3.5-5.0); Chloride 96 mmol/L (98-107); Potassium 5.4 mmoL/L (3.5-5.1); Sodium 136 mmol/L (136-145)
[2025-03-27 12:05] LABS: Alanine Aminotransferase 35 U/L (12-78); Albumin/Globulin Ratio 1.1 (1.1-1.8); Alkaline Phosphatase 153 U/L (38-126); Anion Gap 14.4 mEq/L (5-15); Aspartate Amino Transferase 38 U/L (14-36); Bilirubin,Total 0.2 mg/dl (0.2-1.3); Blood Urea Nitrogen 32 mg/dl (7-17); Carbon Dioxide 31 mmol/L (22.0-30.0); Creatinine Clearance Estimated 33 mL/min (50-200); Creatinine,Serum 2.40 mg/dl (0.52-1.04); Estimated Glomerular Filt Rate 20 ml/min (>60); GFR (African American) 25 ML/MIN (>60); Globulin 4.0 g/dL (1.3-3.2); Lipase 131 U/L (23-300); Total Protein,Serum 8.2 g/dl (6.3-8.2)
[2025-03-27 12:06] LABS: Calcium 9.7 mg/dl (8.4-10.2); Glucose 219 mg/dl (74-100); Magnesium 2.1 mg/dl (1.6-2.3)
[2025-03-27 12:06] LABS: Coronavirus 19, PCR Not Detected (NotDetected); Influenza A, PCR Not Detected (NotDetected); Influenza B, PCR Not Detected (NotDetected)
[2025-03-27] MEDS: LACTATED RINGERS 1000ML 1,000 ML 999 ML IV (12:11)
[2025-03-27 12:15] LABS: NT Pro Brain Natriuretic Pep. 1230 pg/mL (0-125)
[2025-03-27 12:17] LABS: Troponin I 0.02 ng/ml (0.00-0.034)
[2025-03-27] MEDS: 0.9 % SODIUM CHLORIDE 50 ML VIAL IV (12:36)
[2025-03-27] MEDS: IOPAMIDOL-370 (76%);100ML BOTTLE 80 ML IV (12:36)
[2025-03-27 12:55] LABS: Amphetamine/Metha Screen,Urine Negative ng/ml (<1000)
[2025-03-27 12:56] LABS: Benzodiazepines Screen,Urine Negative ng/ml (<200)
[2025-03-27 12:58] LABS: Methadone Screen,Urine Negative ng/ml (<300)
[2025-03-27 12:59] LABS: Phencyclidine Screen,Urine Negative ng/ml (<25)
[2025-03-27 13:07] LABS: Barbiturates Screen,Urine Negative ng/ml (<200)
[2025-03-27 13:14] LABS: Microscopic, Urine URINE MICROSCOPIC (MICROSCOPIC)
[2025-03-27 14:13] LABS: Bilirubin,Urine Negative (Negative); Color,Urine YELLOW (Yellow); Glucose,Urine (UA) Negative (Negative); Ketones,Urine Negative (Negative); Leukocyte Esterase,Urine 3+ (Negative); PH,Urine 6.0 (5.0-8.5); Protein,Urine 3+ (Negative); Specific Gravity, Urine 1.020 (1.005-1.030); Urobilinogen,Urine 0.2 EU/dl (0.2)
[2025-03-27 14:14] LABS: Opiate Screen,Urine Negative ng/ml (<300)
[2025-03-27 14:45] LABS: RBC,Urine 20-50 #/hpf (0-3); WBC,Urine TNTC #/hpf (0-3)
--- NOTE | 2025-03-27 15:01 | PC.NURSE ---
HS notified of the need for a bed to admit the pt for UTI/sepsis to the hospitalist.
--- NOTE | 2025-03-27 15:05 | PC.NURSE ---
Cristy AG is on the phone updating the pts POA about findings and admission
[2025-03-27] MEDS: ACETAMINOPHEN 500MG TAB 1000 MG PO (15:40)
[2025-03-27 15:45] LABS: Troponin I 0.03 ng/ml (0.00-0.034)
--- NOTE | 2025-03-27 15:48 | P.HP_ITS ---
<Statement entered by Marques Cheng MD - 03/27/25 18:46> Rounded on patient after nurse practitioner. Personally examined and interviewed patient. Agree with exam findings and care plan as documented. History of Present Illness *Admission Date: 03/27/25 *Reason for visit:: Anemia, sepsis *History of present illness: Ms. Tovar is a 64-year-old female who presented to the emergency department today from [facility]. senior care staff reported patient was more lethargic and confused than normal. She was recently admitted to the hospital and discharged on Invanz IM x total 7 days for UTI culture showing E. coli and ESBL. Patient does follow with urology. Upon noted mission to the emergency department was found to have UTI, lethargy, tachycardia, and was febrile with a temperature of 103. Patient is able to tell me her name, birthday, where she is. But she is very lethargic. Patient admitted to the hospital for further management of UTI. Records pending from urology. [facility] Disclaimer: The information contained in this section may have been updated after the patient was seen, as this information can be updated by other users. 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 (Updated 03/27/25 @ 16:24 by Mariana López APRN) Acute alteration in mental status Acute UTI Chronic anticoagulation Deep venous thrombosis Postmenopausal bleeding Below knee amputation Insomnia GERD (gastroesophageal reflux disease) Chronic pain Mood disorder HFrEF (heart failure with reduced ejection fraction) Altered mental status Acute pyelitis Fecal impaction Pulmonary nodules/lesions, multiple Screening mammogram for breast cancer Multiple thyroid nodules Mediastinal lymphadenopathy Chronic kidney disease (CKD) Recurrent UTI Hypertension HLD (hyperlipidemia) Diabetes mellitus Hyperkalemia GEOVANNI (acute kidney injury) 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, left Menopausal vasomotor syndrome Fibromyalgia, primary Gastro-esophageal reflux disease without esophagitis 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 Other idiopathic peripheral autonomic neuropathy Chronic pain syndrome Anxiety disorder, unspecified Major depressive disorder, recurrent, unspecified Hypertensive heart disease without heart failure Need for assistance at home and no other household member able to render care Age-related osteoporosis without current pathological fracture Trochanteric bursitis, right hip Unilateral primary osteoarthritis, right hip Obstructive sleep apnea (adult) (pediatric) Unspecified diastolic (congestive) heart failure Iron deficiency anemia secondary to blood loss (chronic) Right carotid artery occlusion BMI 39.0-39.9,adult Biventricular CHF (congestive heart failure) PVC (premature ventricular contraction) Edema Chronic hypoxemic respiratory failure Stopped smoking with greater than 30 pack year history ARA and COPD overlap syndrome Acute respiratory failure with hypoxia and hypercapnia CHF exacerbation History of smoking 30 or more pack years History of breast cancer Abnormal ECG COPD (chronic obstructive pulmonary disease) CVA (cerebral vascular accident) CAD (coronary artery disease) Surgical History (Updated 03/26/25 @ 16:38 by Vignesh Pickens MD) Left above-knee amputee Presence of internal carotid stent History of right shoulder replacement Status post left knee replacement History of total left knee replacement History of right mastectomy Family History Other Black lung disease Diabetes Hypertension Social History Smoking Status: Unknown if ever smoked smoking status stop date: 06/2022 alcohol intake: never substance use type: denies use current occupational status: disabled Travel in the last 8 weeks?: None household members: other housing: jail caffeine: Yes Other 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 Have you received the Flu Vaccine for this season: No Have you received the Pneumonia Vaccine: Yes (06/29/19, 11/26/24) Review of Systems Review of Systems Review of systems:: pertinent systems reviewed and negative unless documented below Constitutional Constitutional: Reports body ache(s), Reports chills and Reports weakness *Cardiovascular Cardiovascular: Denies chest pain and Reports dyspnea *Respiratory Respiratory: Reports dyspnea *Neurologic Neurologic: Reports confusion and Reports weakness Psychiatric Psychiatric: Reports confusion Meds Home Medications and Allergies Home Medications ?Medication ?Instructions ?Recorded ?Confirmed ?Type acetaminophen 500 mg tablet 500 mg PO Q6HP PRN Mild Pa in 02/28/18 03/26/25 History (Scale Score 1-4) anastrozole 1 mg tablet 1 mg PO DAILY breast cancer 02/28/18 03/26/25 History atorvastatin 40 mg tablet 40 mg PO DAILY 02/28/1801/13 History carvedilol 12.5 mg tablet 12.5 mg PO BID 02/28/1801/13 History loperamide 2 mg capsule 2 mg PO Q4HP PRN Diarrhea 03/26/25 History baclofen 10 mg tablet 10 mg PO TID 04/11/19 History pantoprazole 20 mg tablet,delayed 20 mg PO DAILY 04/1103/26/25 History release (Protonix) clopidogrel 75 mg tablet 75 mg PO DAILY 02/04/2001/13 History multivitamin with minerals 1 each PO DAILY Supplement 05/06/21 03/26/25 History ondansetron 4 mg disintegrating 4 mg PO Q6HP PRN Nause a And 07/28/22 03/26/25 History tablet Vomiting trazodone 150 mg tablet 300 mg PO HS 07/28/22 History azelastine 137 mcg (0.1 %) nasal 2 spray intranasal BI D allergy 09/13/23 03/26/25 Rx spray symptoms #30 mL cholecalciferol (vitamin D3) 25 25 mcg PO BID 10/04/23 03/26/25 History mcg (1,000 unit) tablet (Vitamin D3) cyanocobalamin (vitamin B-12) 1,000 mcg PO DAILY 10/0403/26/25 History 1,000 mcg tablet (Vitamin B-12) fluticasone furoate 100 1 inh inhalation DAILY 10/0403/26/25 History mcg-vilanterol 25 mcg/dose inhalation powder (Breo Ellipta) fluticasone propionate 50 1 spray intranasal BID 10/0403/26/25 History mcg/actuation nasal spray,suspension magnesium oxide 400 mg PO BID 10/04/2303/26 History ascorbic acid (vitamin C) 500 mg 500 mg PO BID 10/16/ 4 03/26/25 History tablet (Vitamin C) calcitriol 0.25 mcg capsule 0.25 mcg PO DAILY 03/19/24 03/26/25 History dextromethorphan-guaifenesin 10 10 ml PO Q4H PRN Cough 07/24/24 03/26/25 History mg-100 mg/5 mL oral liquid (Guaiasorb DM) ferrous sulfate 325 mg (65 mg 325 mg PO BID 10/02/24 0 03/26/25 History iron) tablet (iron) oxycodone-acetaminophen 5 mg-325 1 tab PO BID PRN Pain (Scale Score 01/16/25 03/26/25 Rx mg tablet (Percocet) 7-10) #60 tabs fentanyl 12 mcg/hr transdermal 1 patch transdermal Q72 H #10 02/07/25 03/26/25 Rx patch patches d-mannose 500 mg capsule (AZO 2,000 mg PO DAILY 03/26/25 History D-Mannose) insulin aspart U-100 100 unit/mL 1 sliding scale dose SQ 02/19/25 03/26/25 History (3 mL) subcutaneous pen USEASDIRECTD insulin glargine 100 unit/mL (3 70 unit SQ BID 5 03/26/25 History mL) subcutaneous pen (Basaglar KwikPen U-100 Insulin) mirabegron 50 mg tablet,extended 50 mg PO DAILY 03/26/25 History release 24 hr (Myrbetriq) trospium 20 mg tablet 20 mg PO BID 02/19/25 History pregabalin 50 mg capsule 50 mg PO DAILY #30 caps 02/1903/26/25 Rx fluvoxamine 25 mg tablet 25 mg PO HS 03/13/25 5 History ertapenem 1 gram solution for 1 g IM DAILY 5 days #5 e a 03/16/25 03/26/25 Rx injection New Prescriptions to Start Prescriptions: Allergies Allergy/AdvReac Type Severity Reaction Status Date / Time adhesive tape Allergy Unknown Unknown Verified 03/27/25 13:55 allergy reaction bupropion (From WELLBUTRIN) Allergy Unknown Unknown Verified 03/27/25 13:55 allergy reaction hydrocodone (From LORTAB) Allergy Unknown Unknown Verified 03/27/25 13:55 allergy reaction Sulfa (Sulfonamide Allergy Unknown Unknown Verified 03/27/25 13:55 Antibiotics) (SULFA allergy (SULFONAMIDE ANTIBIOTICS)) reaction tramadol (From ULTRAM) Allergy Unknown Unknown Verified 03/27/25 13:55 allergy reaction Exam Data for Last 24 hours Vital signs and Labs for Last 24 Hours: Temp Pulse Resp BP Pulse Ox O2 Del Method O2 Flow Rate 103 F H 112 H 20 138/47 L 98 Nasal Cannula 3 03/27/25 15:28 03/27/25 15:28 03/27/25 15:28 03/27/25 15:28 03/27/25 15:15 03/27/25 15:28 03/27/25 15:28 Laboratory Results - last 24 hr 03/27/25 11:34: WBC 10.0, RBC 3.97 L, Hgb 10.3 L, Hct 34.5 L, MCV 86.9, MCH 25.9 L, MCHC 29.9 L, RDW 15.8, Plt Count 344, MPV 9.7, Neut % (Auto) 78.2, Lymph % (Auto) 9.1 L, Crawford % (Auto) 9.7 H, Eos % (Auto) 2.4, Baso % (Auto) 0.3, Neut # (Auto) 7.8, Lymph # (Auto) 0.9, Crawford # (Auto) 1.0, Eos # (Auto) 0.2, Baso # (Auto) 0.0, Sodium 136, Potassium 5.4 H, Chloride 96 L, Carbon Dioxide 31 H, Anion Gap 14.4, BUN 32 H, Creatinine 2.40 H, Estimated Creat Clear 33, Estimated GFR 20 L, Est GFR ( Amer) 25 L, Glucose 219 H, Lactate 3.2 H, Calcium 9.7, Magnesium 2.1, Total Bilirubin 0.2, AST 38 H, ALT 35, Alkaline Phosphatase 153 H, Troponin I 0.02, NT-Pro-B Natriuret Pep 1230 H, Total Protein 8.2, Albumin 4.2, Globulin 4.0 H, Albumin/Globulin Ratio 1.1, Lipase 131 03/27/25 11:43: VBG pH 7.25 L, VBG pCO2 66.9 H, VBG pO2 37.2, VBG HCO3 28.9, VBG Total CO2 31.0 H, VBG O2 Saturation 63.4, VBG Base Excess 1.8, VBG Lactic Acid 4.0 H 03/27/25 11:53: SARS-CoV-2 (PCR) Not detected, Influenza A Untype (PCR) Not detected, Influenza Type B (PCR) Not detected 03/27/25 12:25: Urine Opiates Screen Negative, Urine Methadone Screen Negative, Ur Barbituates Screen Negative, Ur Phencyclidine Scrn Negative, Ur Amphetamines Screen Negative, U Benzodiazepines Scrn Negative, Urine Cocaine Screen Negative, U Marijuana (THC) Screen Negative 03/27/25 12:30: Urine Color Yellow, Urine Appearance Clear, Urine pH 6.0, Ur Specific Ada 1.020, Urine Protein 3+ A, Urine Glucose (UA) Negative, Urine Ketones Negative, Urine Blood 3+ A, Urine Nitrate Negative, Urine Bilirubin Negative, Urine Urobilinogen 0.2, Ur Leukocyte Esterase 3+ A, Urine RBC 20-50, Urine WBC Tntc, Ur Squamous Epith Cells None, Urine Bacteria None I & O for Last 24 hours: Intake & Output 03/24/25 03/25/25 03/26/25 03/27/25 23:59 23:59 23:59 23:59 Weight 85.729 kg Constitutional Constitutional: mild distress, morbidly obese, chronically ill appearing and somnolent *Routine HEENT Exam Head: Present normocephalic Eye: Present PERRL ENT: Present mucous membranes moist *Routine Neck Exam Neck: Present supple *Routine Respiratory Exam Respiratory: Present decreased breath sounds, able to speak in complete sentences and symmetric chest movement *Routine Cardiovascular Exam Cardiovascular: Present irregular rhythm *Routine Abdominal Exam Abdominal: Present soft; Absent tenderness or distended Comments: Hypoactive bowel sounds *Routine Rectal Exam Rectal:: deferred *Routine Genitalia Exam Genitalia:: deferred *Routine Extremities Exam Extremities: Absent edema Comments: Left BKA *Routine Skin Exam Skin: Present intact and dry *Routine Neurological Exam Comments: Alert to self Assessment and Plan *Assessment and plan (1) UTI (urinary tract infection): Status: Acute Category: Medical Code(s): N39.0 - Urinary tract infection, site not specified (2) Chronic kidney disease (CKD): Problem Comment: stage 3 Status: Acute Category: Medical Code(s): N18.9 - Chronic kidney disease, unspecified (3) Recurrent UTI: Status: Acute Category: Medical Code(s): N39.0 - Urinary tract infection, site not specified (4) Incontinent of urine: Status: Acute Category: Medical Code(s): R32 - Unspecified urinary incontinence (5) GERD (gastroesophageal reflux disease): Status: Acute Category: Medical Code(s): K21.9 - Gastro-esophageal reflux disease without esophagitis (6) Below knee amputation: Problem Comment: Left Status: Acute Category: Medical Code(s): S88.119A - Complete traumatic amputation at level between knee and ankle, unspecified lower leg, initial encounter (7) Diabetes mellitus: Status: Acute Qualifiers: Diabetes mellitus type: other specified (including VICTORIA) Diabetes mellitus long term care administrator insulin use: unspecified snf insulin use status Diabetes mellitus complication status: with other specified complication Qualified Code(s): E13.69 - Other specified diabetes mellitus with other specified complication Category: Medical Code(s): E11.9 - Type 2 diabetes mellitus without complications (8) Hypertension: Status: Acute Qualifiers: Hypertension type: primary hypertension Qualified Code(s): I10 - Essential (primary) hypertension Category: Medical Code(s): I10 - Essential (primary) hypertension (9) CAD (coronary artery disease): Problem Comment: PCI/CLIFF 2018. Last cardiac cath, Aug 2022, with patent stents>medical management. Status: Acute Qualifiers: Coronary Disease-Associated Artery/Lesion type: minto artery [place] vs. transplanted heart: minto heart Associated angina: without angina Qualified Code(s): I25.10 - Atherosclerotic heart disease of minto coronary artery without angina pectoris Category: Medical Code(s): I25.10 - Atherosclerotic heart disease of minto coronary artery without angina pectoris (10) CVA (cerebral vascular accident): Problem Comment: 12/01/22: History of R-ICA stenosis, s/p stent procedure, R-MCA cva with residual left spastic hemiparesis. Status: Acute Qualifiers: CVA mechanism: other Qualified Code(s): I63.8 - Other cerebral infarction Category: Medical Code(s): I63.9 - Cerebral infarction, unspecified (11) Severe sepsis: Status: Acute Category: Medical Code(s): A41.9 - Sepsis, unspecified organism; R65.20 - Severe sepsis without septic shock Plan Ms. Tovar is a 64-year-old female with a primary medical history of chronic kidney disease stage III, recurrent urinary tract infection, CHF, COPD, diabetes mellitus type 2, insulin-dependent, left BKA, GERD, chronic pain, mood disorder, right mastectomy, urinary incontinence, CVA, CAD, heart cath with stent placement, hypertension, hyperlipidemia. She presented to the emergency department today from [facility] with lethargy and recurrent urinary tract infection. She was recently admitted to our facility f or recurrent urinary tract infection, treated with Invanz IM x 7 days. Patient appeared hemodynamically stable, normotensive. She did meet sepsis protocol tachycardia, febrile at 103?received 1 L LR and 1 g Tylenol in ED. She is able to answer her birthday, her name, and where she is. When asked if she is confused she states now she is just tired. The emergency room physician contacted hospital medicine for admission and I agreed to accept the patient for further management of her recurrent urinary tract infection. Plan of care as follows: #CKD #Recurrent UTI #Urosepsis, severe ?Initiated another 1 L LR bolus due to sepsis criteria and Invanz 1 g daily. Patient did receive 1 g Rocephin in the ED. ? Patient had a recent admission for recurrent UTI, early February was at , was admitted here the end of February for another recurrent UTI sensitive to Invanz. She completed a 7-day IM course of Invanz outpatient. Patient was brought to the emergency department today with complaints of altered mental status and lethargy. She was found to have a urinary tract infection, culture pending.Previous urine culture positive for E. coli ESBL, sensitive to Invanz. ?Patient's urine 3+ protein, 3+ blood, 3+ leuk esterase, WBC TNTC. Urine appears turbid. Parekh was placed in the emergency room. CT scan abdomen/pelvis impression: moderate bilateral hydroureteronephrosis with thickening of the urinary bladder wall and worsening retroperitoneal adenopathy. Recommend cystoscopy. Patient sees Cayla Erazo APRN at urology. She had a cystoscopy on March 07, records requested. Patient unable to give me information, [facility] unable to give me information. ?No leukocytosis noted, 10.0, mild anemia hemoglobin 10.3, elevated potassium of 5.4. Patient appears to be at baseline kidney function BUN 32, creatinine 2.4. ?Continue to monitor for signs of infection, blood cultures pending. CBC, CMP, magnesium ordered for a.m. ?Patient was recently hospitalized and intubated for pneumonia at , chest x- ray in the ED personally interpreted by myself shows no acute findings. #Urinary incontinence ? Patient takes Myrbetriq 50 mg daily for urinary incontinence, medication unavailable. #Chronic pain ? Patient has fentanyl patch every [address] ? Percocet 5?3 25 twice daily as needed for pain ordered. Monitoring for toxicity. #GERD ? Continue Protonix 20 mg daily. #BKA ?Patient is wheelchair-bound, per [facility] she can normally transfer from wheelchair to bed. PT/OT ordered for profound weakness. #Diabetes mellitus ?Patient is insulin-dependent diabetic. Currently takes Lantus 70 units twice daily and is on sliding scale at [facility]. Continue long-acting insulin. ?ACHS fingersticks, high intensity SSI. ?A1c 11.4%, on 02/20/2025. #Hypertension #CAD #CVA ? Continue carvedilol 12.5 twice daily, Plavix 75 mg daily, hold atorvastatin 40 mg daily. Full code Diabetic diet PT OT evaluation VTE?Lovenox
[2025-03-27 15:58] LABS: Reflex Lactic Add Lactic Reflex
--- NOTE | 2025-03-27 16:22 | EXP.SEPSISRE ---
[facility] Tissue Perfusion Eval Sepsis Re-Evaluation Performed: Yes Date Performed: 03/27/25 Time Performed: 16:22
--- NOTE | 2025-03-27 16:42 | PC.NURSE ---
pt temperature upon arriving on the floor was 103.2 rectally. 1000mg tylenol administered in the er
[2025-03-27 16:51] LABS: POC Glucose,Bedside 175 (70-110)
[2025-03-27] MEDS: ERTAPENEM SODIUM 1 GM in 0.9 % SODIUM CHLORIDE 50 ML IV (16:57)
[2025-03-27] MEDS: humaLOG 100 UNITS/ML 10ML VIAL (SSI) SUBCUT (16:57)
[2025-03-27] MEDS: LACTATED RINGERS 1000ML 1,000 ML 500 ML IV (16:57)
--- NOTE | 2025-03-27 16:58 | PC.WOUNDNOTE ---
2CM RED AREA NOTED TO LEFT BUTTOCK.
--- NOTE | 2025-03-27 17:17 | PC.NURSE ---
new admission from ER at 1600. alert to self and place only. pt very warm to the touch, sweaty, and flushed. rectal temperature on arrival to the floor was 103.2. recheck at 1700 was 102.2 after administration of tylenol in the ER. garcía catheter in place draining thick, chunky, blood tinged urine. AKA to the L leg. red spot on L buttocks- dressing applied. no complaints of pain. abx and fluids given per mar. no needs at this time. bed alarm in place for pt safety. call light within reach.
[2025-03-27 18:25] LABS: Lactic Acid Follow Up (RFLX 1) 1.5 mmol/L (0.7-2.1)
[2025-03-27 18:37] LABS: Troponin I 0.04 ng/ml (0.00-0.034)
[2025-03-27 20:22] LABS: POC Glucose,Bedside 128 (70-110)
--- NOTE | 2025-03-27 20:37 | P.EN_ITS ---
At approximately 8:15 PM I was notified by the nurse the patient was difficult to arouse/lethargic. Upon my evaluation, patient was very somnolent and required deep sternal rub for arousal. Patient would answer 1-2 questions but fall right back asleep. No gross signs of distress. Vital signs, blood sugar were stable. Patient was noted to have very diminished breath sounds in the anterior lung campbell. VBG at noon showed acute hypercapnia pH 7.25 PCO2 66.9. While waiting on repeat VBG, patient was given DuoNeb, Pulmicort, IV Solu-Medrol 60 mg but without significant improvement in apparent airway restriction. However, posterior lung sounds where much more pronounced and clear. Repeat VBG at 8:25 PM showed normalizing hypercapnia with pH 7.36 pCO2 52.4. Patient's mentation and encephalopathy were also improving after reevaluation within 1 hour. She was AO x 3, though remained somnolent but improved. Therefore, deferred BiPAP and will continue with DuoNebs every 6 hours. Repeat lactic, BMP unremarkable. Patient's encephalopathy likely from severe sepsis/UTI. It was reported that this is how she presented from the detention. Per MAR at the detention, she received fentanyl patch the day of admission. However, this could not be found on patient. She is receiving empiric IV ertapenem, pending blood and urine cultures. 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 Will continue to monitor closely and report this to day team. Continues to be a watcher. Follow-up morning VBG. Of note, discontinued PRN ibuprofen given patient's CKD.
[2025-03-27] MEDS: METHYLPREDNISOLONE SOD SUCC 40MG VIAL 60 MG IV (20:43)
[2025-03-27 20:46] LABS: Lactate Venous 1.5 mmol/L (0.4-2.0); VBG HCO3 29.1 mmol/L (23-30); VBG PH 7.36 mmol/L (7.31-7.41); VBG PO2 55.0 mmol/L (28-40)
[2025-03-27 20:47] LABS: VBG PCO2 52.4 mmol/L (35-51)
--- NOTE | 2025-03-27 20:49 | PC.NURSE ---
nurse was notified about the blood pressure and temperature at 193
--- NOTE | 2025-03-27 20:51 | PC.NURSE ---
2014 Pt is lethargic, Could not arouse Pt to Take Tylenol and Motrin for a Fever of 100.0 Notified the Information Systems Specialist nurse, Brianna KRAUSE, General Duty Nurse RONEY KRAUSE, Notified House MD Doug Shore. Everyone came to the Bed side. Pt was still lethargic. Abg, BNP, BMP, Lactic Acid. PT was on 3 L of O2 sating 99, Breath sounds were Diminished throughout. Pt was using accessory muscles to Breath. Neb treatments ordered. Solumedrol 60 mg IV push. Awaiting Lab work. SUHAIL SMITH RN
[2025-03-27 21:01] LABS: Chloride 99 mmol/L (98-107); Potassium 4.9 mmoL/L (3.5-5.1); Sodium 133 mmol/L (136-145)
[2025-03-27 21:04] LABS: Anion Gap 8.9 mEq/L (5-15); Blood Urea Nitrogen 35 mg/dl (7-17); Calcium 8.8 mg/dl (8.4-10.2); Carbon Dioxide 30 mmol/L (22.0-30.0); Creatinine Clearance Estimated 35 mL/min (50-200); Creatinine,Serum 2.20 mg/dl (0.52-1.04); Estimated Glomerular Filt Rate 22 ml/min (>60); GFR (African American) 27 ML/MIN (>60); Glucose 114 mg/dl (74-100)
[2025-03-27 21:14] LABS: NT Pro Brain Natriuretic Pep. 1650 pg/mL (0-125)
[2025-03-27] MEDS: IPRATROPIUM/ALBUTEROL 3 ML NEB IH (21:27)
[2025-03-27] MEDS: BUDESONIDE 0.5MG/2ML NEB 0.5 MG IH (21:27)
[2025-03-27 22:36] LABS: Adenovirus,PCR Not Detected (NotDetected); Chlamydophila Pneumoniae, PCR Not Detected (NotDetected); Coronavirus 19, PCR Not Detected (NotDetected); Coronovirus HKU1,PCR Not Detected (NotDetected); Influenza A, PCR Not Detected (NotDetected); Influenza AH1, 2009 Not Detected (NotDetected); Influenza AH1, PCR Not Detected (NotDetected); Influenza AH3,PCR Not Detected (NotDetected); Influenza B, PCR Not Detected (NotDetected); Mycoplasma Pneumoniae, PCR Not Detected (NotDetected); Parainfluenza 1, PCR Not Detected (NotDetected); Parainfluenza 2, PCR Not Detected (NotDetected); Parainfluenza 3, PCR Not Detected (NotDetected); Parainfluenza 4, PCR Not Detected (NotDetected)
[2025-03-28] VITALS (13 sets, daily range): BP systolic 110–141; BP diastolic 60–73; PULSE 72–90; RESP 16–22; TEMP 36.5–36.8; O2SAT 94–100; BMI 36.2
[2025-03-28 02:31] LABS: POC Glucose,Bedside 261 (70-110)
[2025-03-28 05:53] LABS: Hematocrit 29.6 % (37.0-47.0); Immature Granulocytes % 0.4 %; Mean Corpuscular HGB Conc 30.7 g/dL (31.8-35.4); Mean Corpuscular Hemoglobin 26.4 pg (27.0-31.2); Mean Corpuscular Volume 85.8 fl (81-99); Nucleated Red Blood Cells % 0 %; Platelet Count 239 K/mm3 (142-424); Red Blood Count 3.45 M/mm3 (4.20-5.40); Red Cell Distribution Width-SD 49.6 fL; White Blood Count 5.3 K/mm3 (4.8-10.8)
[2025-03-28 05:57] LABS: Hemoglobin 9.0 g/dL (12.2-16.2)
[2025-03-28 06:00] LABS: Albumin Level 3.5 g/dl (3.5-5.0); Chloride 99 mmol/L (98-107); Potassium 5.8 mmoL/L (3.5-5.1); Sodium 132 mmol/L (136-145)
[2025-03-28 06:03] LABS: Alanine Aminotransferase 29 U/L (12-78); Albumin/Globulin Ratio 1.1 (1.1-1.8); Alkaline Phosphatase 124 U/L (38-126); Ammonia < 9 umol/L (9-30); Anion Gap 12.8 mEq/L (5-15); Aspartate Amino Transferase 30 U/L (14-36); Bilirubin,Total 0.2 mg/dl (0.2-1.3); Blood Urea Nitrogen 41 mg/dl (7-17); Calcium 8.7 mg/dl (8.4-10.2); Carbon Dioxide 26 mmol/L (22.0-30.0); Creatinine Clearance Estimated 41 mL/min (50-200); Creatinine,Serum 2.20 mg/dl (0.52-1.04); Estimated Glomerular Filt Rate 22 ml/min (>60); GFR (African American) 27 ML/MIN (>60); Globulin 3.2 g/dL (1.3-3.2); Glucose 300 mg/dl (74-100); Magnesium 2.0 mg/dl (1.6-2.3); Total Protein,Serum 6.7 g/dl (6.3-8.2)
[2025-03-28] MEDS: IPRATROPIUM/ALBUTEROL 3 ML NEB IH ×4 (06:03→23:09)
[2025-03-28 06:18] LABS: Total Cells Counted 100
[2025-03-28 06:27] LABS: POC Glucose,Bedside 341 (70-110)
[2025-03-28] MEDS: humaLOG 100 UNITS/ML 10ML VIAL (SSI) SUBCUT ×4 (06:28→20:36)
[2025-03-28 06:41] LABS: VBG PCO2 48.4 mmol/L (35-51); VBG PH 7.34 mmol/L (7.31-7.41); VBG PO2 63.1 mmol/L (28-40)
[2025-03-28 06:42] LABS: Lactate Venous 1.3 mmol/L (0.4-2.0); VBG HCO3 25.4 mmol/L (23-30)
--- OUTSIDE RECORDS SUMMARY | 2025-03-28 08:22 | XMS_ITS | Clinical Summary ---
Author Organization [facility] Address [address] [place] [address] Care Team Providers Care Home Companion Name Role Phone Cayla Erazo APRN, DNP Unavailable [phone] Vignesh Pickens MD Primary Care Provider [phone] Allergies Active Allergy Reactions Criticality Noted Date [...] ureteral calculous obstruction 08/17/2024 Kidney infection 08/16/2024 [place] coma scale total sco re 13-15, unspecified [...] without esophagitis 03/28/2017 CAD (coronary artery disease), [place] coronary a rtery 03/28/2017 Controlled diabetes mellitus [...] Encounters Date Type Department Care Team Description 03/27/2025 Telephone [facility] [address] [place] [address] Doug Chapman MD 03/07/2025 10:00 AM EDT Office Visit [facility] [address] [place] [address] Doug Chapman MD Gross hematuria 03/07/2025 Travel 03/04/[address]25 [address] [facility] Medicine Virtual Dept. [address] [place] [address] Madonna Singleton MD 03/01/2025 Telephone [facility] [address] Dental, Surgeon, 02/28/2025 8:15 AM EDT Office Visit [facility] [address] [place] [address] Bert Lim, RAYMON Caries (Primary Dx) 02/28/2025 Travel 02/27/2025 Travel 02/24/2025 Travel 02/22/2025 6:13 PM EDT - 03/02/2025 11:04 AM EDT Hospital Encounter [facility] [address] [address] Daniel Gordillo MD Salahuddin, Nawal, MD Powers, [...] above knee Discharge Disposition: Group Home Facility 02/22/2025 Travel 02/22/2025 Orders Only External Location [address] [id number] Jordan Carl MD 02/22/2025 Orders Only External Location 800 [place] [address] Jordan Carl MD 02/22/2025 Orders Only External Location 800 [place] [address] Jordan Carl MD 02/22/2025 Orders Only External Location 800 [place] [address] Jordan Carl MD 01/31/2025 9:48 AM EDT Anesthesia Event [facility]PERATING [facility] [address] Nj Sears MD 01/31/2025 8:55 AM EDT - 01/31/2025 10:10 AM EDT Surgery [facility] [address] [place] [address] Ceci Mitchell MD URETEROSCOPY,CYSTOSCO PY, RETROGRADE PYELOGRAM, BILATERAL STENT PLACEMENT [11323 (CPT )] 01/31/2025 8:03 AM EDT - 01/31/2025 1:39 PM EDT Hospital Encounter [facility] [address] [place] [address] Ceci Mitchell MD Urinary retention (Primary Dx); Gross hematuria Discharge Disposition: Home or Self Care 01/31/2025 Travel 01/24/2025 2:00 PM EDT Pre-Admission Testing [facility] [address] [place] [address] 01/24/2025 Travel 01/23/2025 Telephone [facility] [address] [place] [address] Ceci Mitchell MD 01/17/2025 Telephone [facility] [address] [place] [address] Ceci Mitchell MD 01/16/2025 Telephone [facility] [address] [place] [address] Ceci Mitchell MD 01/03/2025 2:15 PM EDT - 01/03/2025 11:59 PM EDT Hospital Encounter [facility] 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 12/31/2024 2:01 PM EDT - 12/31/2024 11:59 PM EDT Hospital Encounter [facility] [address] [place] [address] Coronary artery disease involving miami heart without angina pectoris, unspecified vessel or lesion type; S/P AKA (above knee amputation) bilateral (CMS/HCC); Acute left arterial ischemic stroke, ICA (internal carotid artery) ([facility]) Discharge Disposition: Home or Self Care 12/31/2024 2:01 PM EDT - 12/31/2024 11:59 PM EDT Hospital Encounter [facility] [address] [place] [address] S/P AKA (above knee amputation) bilateral ([facility]); Encounter for surgical aftercare following surgery on the circulatory system Discharge Disposition: Home or Self Care 12/31/2024 Travel from Last 3 Months Immunizations Immunization Administration Dates Next Due Influenza, injectable, quadrivalent, preservativ e free 05/11/2016 Nanoflex COVID-19 Vaccine (Purple Cap) 12 + 09/30/2020,09/09/2020 [...] drink first t rodríguez in the morning (EYE-JAVA ENTERPRISE ARCHITECT) to steady your nerves or to [...] Description 05/16/2025 8:00 AM EDT Office Visit [facility] [place] [address] [facility], [address] [place] [address] Karly Gracia MD [address] [place] [address] 06/07/2025 1:00 PM EDT Office Visit [facility] [address] [place] [address] Tom Iraheta MD [address] [place] [address] Health Maintenance Due Date Last Done Comments [...] - Risk 60-74 years 1-dose series) 2019 [id number] Vaccine (3 - Pfizer risk series) 10/28/2020 [...] this topic Medical Devices Implanted Type Area Commercial Credit Reviewer Device Identifier Shelf Expiration Date Model / Serial / Lot Stent Ureteral Tria [employer] Monofilament 7f/24cm - [id number] Implanted:Qty: 1 on 01/31/2025 by Ceci Mitchell MD at [facility] Right: Kidney [employer]-[id number] 06/14/2027 [id number] / / [id number] Stent Ureteral Tria [employer] Monofilament 7f/24cm - [id number] Implanted:Qty: 1 on 01/31/2025 by Ceci Mitchell MD at [facility] Left: Kidney [employer]-[id number] 07/02/2027 [id number] / / [id number] Procedures Procedure Name Priority Date/Time Associated Diagnosis [...] EDT EXTUBATION Routine 02/24/2025 9:49 AM EDT [place] CRITICAL CARE, E/M 30-74 MINUTES Routine 02/24/2025 7:08 AM EDT Acute respiratory failure with hypoxia and hypercapnia Acute kidney injury superimposed on CKD ([facility]/HCC) Chronic kidney disease, stage 3a ([facility]) Hyponatremia Acute encephalopathy Sepsis with encephalopathy without septic shock, due to unspecified organism ([facility]) Chronic diastolic (congestive) heart failure ([facility]) POCT GLUCOSE METER UNSOLICITED RESULTS [...] AND TREAT Routine 02/23/2025 10:25 AM EDT NV CRITICAL CARE, E/M 30-74 MINUTES Routine 02/23/2025 9:10 AM EDT Acute respiratory failure with hypoxia and hypercapnia Acute kidney injury superimposed on CKD ([facility]) Chronic kidney disease, stage 3a ([facility]) Hyponatremia Acute encephalopathy Sepsis with encephalopathy without septic shock, due to unspecified organism ([facility]) VANCOMYCIN, RANDOM, PLASMA Routine 02/23/2025 [...] ANESTHESIA PLACEHOLDER Routine 01/31/2025 9:58 AM EDT NV AN ELECTIVE ENDOTRACHEAL AIRWAY Routine 01/31/2025 9:58 AM EDT NV CYSTO/URETERO/PYELOSC ,BX &/OR FULG LESN 01/31/2025 9:32 [...] 2:27 PM EDT Coronary artery disease involving miami heart without angina pectoris, unspecified vessel or [...] Comment 03/02/2025 8:14 AM EDT [facility]ALTH[facility]ARE LAB Granite Worker ID Stefanie Frances 025 8:14 AM EDT HEALTHCARE LAB Device ID [id number] 03/02/2025 8:14 AM EDT HEALTHCARE LAB Specimen Type POC Capillary 03/02/2025 8:14 AM EDT [facility] Blood Capillary blood specimen / Unknown 03/02/2025 8:13 AM EDT 03/02/2025 8:14 AM EDT us Madonna Singleton MD LAB POINT OF CARE TE ST DOCKED DEVICE UNSOLICITED RESULTS Final Result Performing Organization Address City/[facility]/ZIP Co de Phone Number [facility] [address] [place] [address] * SEND HECTOR MESSAGE (03/01/2025 4:15 PM EDT) Only the most recent of2 resultswithin the time period is included. Urine Urine specimen obtained by clean catch procedure / Unknown Non-blood Collection / Unknown 03/01/2025 4:15 PM EDT 03/01/2025 4:26 PM EDT us Madonna Singleton MD LAB URINE ORDERABLES Final Resul t Performing Organization Address City/[facility]/ZIP Co de Phone Number [facility] [address] [place] [address] * Urine [place] Panel (03/01/2025 4:15 PM EDT) Only the most recent of2 resultswithin the time period is included. Pathologist [facility] Extra Sent for Culture 03/01/2025 6:01 PM EDT [facility] Urine Urine specimen obtained by clean catch procedure / Unknown Non-blood Collection / Unknown 03/01/2025 4:15 PM EDT 03/01/2025 4:26 PM EDT us Madonna Singleton MD LAB URINE ORDERABLES Final Resul t Performing Organization Address City/[facility]/ZIP Co de Phone Number [facility] [address] [place] [address] * Urinalysis Microscopic Examination (03/01/2025 4:15 PM EDT) Only the most recent of2 resultswithin the time period is included. Urine Urine specimen obtained by clean catch procedure / Unknown Non-blood Collection / Unknown 03/01/2025 4:15 PM EDT 03/01/2025 4:26 PM EDT us Madonna Singleton MD LAB URINE ORDERABLES Final Resul t Performing Organization Address [facility] de Phone Number [facility] [address] [place] [address] * (ABNORMAL) Urinalysis with reflex microscopic (Culture NOT Included) (03/01/2025 4:15 PM EDT) Only the most recent of2 resultswithin the time period is included. Color, Urine Yellow LAB URINALYSIS - AUTOMATED METHOD 03/01/2025 4:34 PM EDT [facility] Clarity, Urine Cloudy LAB URINALYSIS - AUTOMATED METHOD 03/01/2025 4:34 PM EDT [facility] Spec [place], Urine 1.008 1.005 - 1.030 LAB URINALYSIS - AUTOMATED METHOD 03/01/2025 4:34 PM EDT [facility] pH, Urine 6.5 5.0 - 8.0 LAB URINALYSIS - AUTOMATED METHOD 03/01/2025 4:34 PM EDT [facility] Protein, Urine 30(A) Negative mg/dL LAB URINALYSIS - AUTOMATED METHOD 03/01/2025 4:34 PM EDT [facility] Glucose, Urine Negative Negative mg/dL LAB URINALYSIS - AUTOMATED METHOD 03/01/2025 4:34 PM EDT [facility] Ketones, Urine Negative Negative mg/dL LAB URINALYSIS - AUTOMATED METHOD 03/01/2025 4:34 PM EDT [facility] Blood, Urine Large(A) Negative LAB URINALYSIS - AUTOMATED METHOD 03/01/2025 4:34 PM EDT [facility] Bilirubin, Urine Negative Negative LAB URINALYSIS - AUTOMATED METHOD 03/01/2025 4:34 PM EDT [facility] Urobilinogen, Urine 0.2 0.2 to 1.0 mg/dL LAB URINALYSIS - AUTOMATED METHOD 03/01/2025 4:34 PM EDT [facility] Leukocytes, Urine Large(A) Negative LAB URINALYSIS - AUTOMATED METHOD 03/01/2025 4:34 PM EDT [facility] Nitrite, Urine Negative Negative LAB URINALYSIS - AUTOMATED METHOD 03/01/2025 4:34 PM EDT [facility] RBC, Urine >50(A) 0 to 3 /HPF LAB URINALYSIS - AUTOMATED METHOD 03/01/2025 4:34 PM EDT [facility] WBC, Urine >50(A) 0 to 5 /HPF LAB URINALYSIS - AUTOMATED METHOD 03/01/2025 4:34 PM EDT [facility] Squamous Epithelial Cells 3 - 5 0 to 5 /HPF LAB URINALYSIS - AUTOMATED METHOD 03/01/2025 4:34 PM EDT [facility] Hyaline Casts 0 - 2 0 to 5 /LPF LAB URINALYSIS - AUTOMATED METHOD 03/01/2025 4:34 PM EDT [facility] Bacteria, Urine Negative Negative LAB URINALYSIS - AUTOMATED METHOD 03/01/2025 4:34 PM EDT [facility] Urine Urine specimen obtained by clean catch procedure / Unknown Non-blood Collection / Unknown 03/01/2025 4:15 PM EDT 03/01/2025 4:26 PM EDT us Madonna Singleton MD LAB URINE ORDERABLES Final Resul t [facility] [address] [place] [address] * (ABNORMAL) Urine Culture (03/01/2025 4:15 PM EDT) Only the most recent of3 resultswithin the time period is included. Culture 10,000 - 100,000 CFU/mL Enterobacter cloacae complex(A) CHRISTIANO 03/05/2025 12:12 PM EDT [facility] Comment: This isolate has been identified using the FDA Approved [employer] System Edited result: Previously reported as [...] 32 ug/ml: Susceptible Enterobacter cloacae complex Piperacillin/Tazobactam CHRSITIANO >64/4 ug/ml: Resistant Enterobacter cloacae complex Tetracycline CHRISTIANO <=2 ug/ml: Susceptible Enterobacter cloacae complex Tobramycin CHRISTIANO <=2 ug/ml: Susceptible Enterobacter cloacae complex Trimethoprim/Sulfamethoxazo le CHRISTIANO <=0.5/9.5 ug/ml: Susceptible Enterobacter cloacae complex Ertapenem ETEST 0.19 ug/ml: Susceptible Enterobacter cloacae complex Cefepime ETEST 2.0 ug/ml: Susceptible Comment:The previously repor jovita component Ertapenem is no longer being reported. us Madonna Mani [facility] MICROBIOLOGY - GENERAL ORDER GIO Final Result [facility] [address] [place] [address] * (ABNORMAL) CBC and Differential (03/01/2025 4:08 AM EDT) Only the most recent of4 resultswithin the time period is included. WBC Count 6.83 3.70 - 10.30 10*3/uL LAB HEMATOLOGY METHOD 03/01/2025 4:54 AM EDT [facility] RBC Count 3.61(L) 3.90 - 5.20 10*6/uL LAB HEMATOLOGY METHOD 03/01/2025 4:54 AM EDT [facility] HGB 9.2(L) 11.2 - 15.7 g/dL LAB HEMATOLOGY METHOD 03/01/2025 4:54 AM EDT [facility] HCT 29.9(L) 34.0 - 45.0 % LAB HEMATOLOGY METHOD 03/01/2025 4:54 AM EDT [facility] Platelet Count 294 155 - 369 10*3/uL LAB HEMATOLOGY METHOD 03/01/2025 4:54 AM EDT [facility] MCV 83 79 - 98 fL LAB HEMATOLOGY METHOD 03/01/2025 4:54 AM EDT [facility] MCH 25.5(L) 26.0 - 32.0 pg LAB HEMATOLOGY METHOD 03/01/2025 4:54 AM EDT [facility] MCHC 30.8 30.7 - 35.5 g/dL LAB HEMATOLOGY METHOD 03/01/2025 4:54 AM EDT [facility] RDW 15.1(H) 11.5 - 14.5 % LAB HEMATOLOGY METHOD 03/01/2025 4:54 AM EDT [facility] MPV 9.2 8.8 - 12.5 fL LAB HEMATOLOGY METHOD 03/01/2025 4:54 AM EDT [facility] nRBC 0.0 <=0.0 per 100 WBCs LAB HEMATOLOGY METHOD 03/01/2025 4:54 AM EDT [facility] Differential Type Automated LAB HEMATOLOGY METHOD 03/01/2025 4:54 AM EDT [facility] Neutrophils % 56 % LAB HEMATOLOGY METHOD 03/01/2025 4:54 AM EDT [facility] Lymphocytes % 25 % LAB HEMATOLOGY METHOD 03/01/2025 4:54 AM EDT [facility] Monocytes % 11 % LAB HEMATOLOGY METHOD 03/01/2025 4:54 AM EDT [facility] Eosinophils % 6 % LAB HEMATOLOGY METHOD 03/01/2025 4:54 AM EDT [facility] Basophils % 1 % LAB HEMATOLOGY METHOD 03/01/2025 4:54 AM EDT [facility] Immature Granulocytes % 1 % LAB HEMATOLOGY METHOD 03/01/2025 4:54 AM EDT [facility] Neutrophils Absolute 3.86 1.60 - 6.10 10*3/uL LAB HEMATOLOGY METHOD 03/01/2025 4:54 AM EDT [facility] Lymphocytes Absolute 1.70 1.20 - 3.90 10*3/uL LAB HEMATOLOGY METHOD 03/01/2025 4:54 AM EDT [facility] Monocytes Absolute 0.74 0.30 - 0.90 10*3/uL LAB HEMATOLOGY METHOD 03/01/2025 4:54 AM EDT [facility] Eosinophils Absolute 0.44 0.00 - 0.50 10*3/uL LAB HEMATOLOGY METHOD 03/01/2025 4:54 AM EDT [facility] Basophils Absolute 0.05 0.00 - 0.10 10*3/uL LAB HEMATOLOGY METHOD 03/01/2025 4:54 AM EDT [facility] Immature Granulocytes Absolute 0.04 0.00 - 0.06 10*3/uL LAB HEMATOLOGY METHOD 03/01/2025 4:54 AM EDT [facility] Blood Venous blood specimen / Unknown Venipuncture / Unknown 03/01/2025 4:08 AM EDT 03/01/2025 4:42 AM EDT [facility] - 03/01/2025 4:54 AM EDT Therapeutic decision making should be based on absolute values, rather than percentages. us Madonna Singleton MD LAB BLOOD ORDERABLES Final Resul t [facility] [address] [place] [address] * Phosphorus, Plasma (03/01/2025 4:08 AM EDT) Only the most recent of4 resultswithin the time period is included. Phosphorus, Plasma 4.4 2.5 - 4.5 mg/dL 03/01/2025 5:14 AM EDT [facility] Blood Venous blood specimen / Unknown Venipuncture / Unknown 03/01/2025 4:08 AM EDT 03/01/2025 4:43 AM EDT us Madonna Singleton MD LAB BLOOD ORDERABLES Final Resul t Performing Organization Address City/[facility]/ZIP Co de Phone Number [facility] [address] [place] [address] * Magnesium, Plasma (03/01/2025 4:08 AM EDT) Only the most recent of5 resultswithin the time period is included. [facility] Magnesium, Plasma 2.0 1.9 - 2.4 mg/dL 03/01/2025 5:14 AM EDT [facility] Blood Venous blood specimen / Unknown Venipuncture / Unknown 03/01/2025 4:08 AM EDT 03/01/2025 4:43 AM EDT us Madonna Singleton MD LAB BLOOD ORDERABLES Final Resul t Performing Organization Address City/[facility] de Phone Number [facility] [address] [place] [address] * (ABNORMAL) Basic Metabolic Panel, Plasma (03/01/2025 4:08 AM EDT) Only the most recent of4 resultswithin the time period is included. [facility] Glucose, Plasma 205(H) 74 - 99 mg/dL 03/01/2025 5:14 AM EDT [facility] BUN, Plasma 40(H) 8 - 23 mg/dL 03/01/2025 5:14 AM EDT [facility] Creatinine, Plasma 1.84(H) 0.60 - 1.10 mg/dL 03/01/2025 5:14 AM EDT [facility] BUN/Creatinine Ratio 22 03/01/2025 5:14 AM EDT [facility] Sodium, Plasma 125(L) 136 - 145 mmol/L 03/01/2025 5:14 AM EDT [facility] Potassium, Plasma 4.5 3.6 - 4.9 mmol/L 03/01/2025 5:14 AM EDT [facility] Chloride, Plasma 91(L) 97 - 107 mmol/L 03/01/2025 5:14 AM EDT [facility] CO2, Plasma 23 22 - 29 mmol/L 03/01/2025 5:14 AM EDT [facility] Anion Gap 11 6 - 16 mmol/L 03/01/2025 5:14 AM EDT [facility] Total Calcium, Plasma 8.8(L) 8.9 - 10.2 mg/dL 03/01/2025 5:14 AM EDT [facility] eGFRcr 30.1 mL/min/1.7 3m*2 03/01/2025 5:14 AM EDT [facility] Comment:Reported eGFRcr in m L/min/1.73m2 is based the CKD-EPI 2020 equation that does not use a race coefficient. Blood Venous blood specimen / Unknown Venipuncture / Unknown 03/01/2025 4:08 AM EDT 03/01/2025 4:43 AM EDT Madonna Singleton MD LAB BLOOD ORDERABLES Final Resul t [facility] [address] [place] [address] * XR Panorex (02/27/2025 12:13 PM EDT) [...] in the posterior aspect of tooth #31. [place] wear in tooth number 8, 9 and 23. No periapical lucency Procedure Note Lucas Cristobal MD - 02/27/2025 CLINICAL INDICATION: Odontogenic infection TECHNIQUE: XR PANOREX COMPARISON: None. FINDINGS: Rounded lucency in tooth #6. Aggressive destruction in the posterioraspect of tooth #31. [place] wear in tooth number 8, 9 and [...] LAB HEMATOLOGY METHOD 02/26/2025 5:25 AM EDT [facility] RBC Count 4.00 3.90 - 5.20 10*6/uL LAB HEMATOLOGY METHOD 02/26/2025 5:25 AM EDT [facility] HGB 10.3(L) 11.2 - 15.7 g/dL LAB HEMATOLOGY METHOD 02/26/2025 5:25 AM EDT [facility] HCT 32.3(L) 34.0 - 45.0 % LAB HEMATOLOGY METHOD 02/26/2025 5:25 AM EDT [facility] Platelet Count 375(H) 155 - 369 10*3/uL LAB HEMATOLOGY METHOD 02/26/2025 5:25 AM EDT [facility] MCV 81 79 - 98 fL LAB HEMATOLOGY METHOD 02/26/2025 5:25 AM EDT [facility] MCH 25.8(L) 26.0 - 32.0 pg LAB HEMATOLOGY METHOD 02/26/2025 5:25 AM EDT [facility] MCHC 31.9 30.7 - 35.5 g/dL LAB HEMATOLOGY METHOD 02/26/2025 5:25 AM EDT [facility] RDW 15.5(H) 11.5 - 14.5 % LAB HEMATOLOGY METHOD 02/26/2025 5:25 AM EDT [facility] MPV 8.9 8.8 - 12.5 fL LAB HEMATOLOGY METHOD 02/26/2025 5:25 AM EDT [facility] nRBC 0.0 <=0.0 per 100 WBCs LAB HEMATOLOGY METHOD 02/26/2025 5:25 AM EDT [facility] Blood Venous blood specimen / Unknown Venipuncture / Unknown 02/26/2025 4:51 AM EDT 02/26/2025 5:12 AM EDT us Ludy Hill MD LAB BLOOD ORDERABLES Final Resul t [facility] [address] [place] [address] * (ABNORMAL) Renal function panel (02/26/2025 4:51 AM EDT) Glucose, Plasma 156(H) 74 - 99 mg/dL 02/26/2025 5:54 AM EDT [facility] BUN, Plasma 26(H) 8 - 23 mg/dL 02/26/2025 5:54 AM EDT [facility] Creatinine, Plasma 1.62(H) 0.60 - 1.10 mg/dL 02/26/2025 5:54 AM EDT [facility] BUN/Creatinine Ratio 16 02/26/2025 5:54 AM EDT [facility] Sodium, Plasma 133(L) 136 - 145 mmol/L 02/26/2025 5:54 AM EDT [facility] Potassium, Plasma 4.2 3.6 - 4.9 mmol/L 02/26/2025 5:54 AM EDT [facility] Chloride, Plasma 96(L) 97 - 107 mmol/L 02/26/2025 5:54 AM EDT [facility] CO2, Plasma 24 22 - 29 mmol/L 02/26/2025 5:54 AM EDT [facility] Anion Gap 13 6 - 16 mmol/L 02/26/2025 5:54 AM EDT [facility] Total Calcium, Plasma 8.9 8.9 - 10.2 mg/dL 02/26/2025 5:54 AM EDT [facility] Phosphorus, Plasma 3.8 2.5 - 4.5 mg/dL 02/26/2025 5:54 AM EDT [facility] Albumin, Plasma 3.5 3.5 - 5.2 g/dL 02/26/2025 5:54 AM EDT [facility] eGFRcr 35.1 mL/min/1.7 3m*2 02/26/2025 5:54 AM EDT [facility] Comment:Reported eGFRcr in m L/min/1.73m2 is based the CKD-EPI 2020 equation that does not use a race coefficient. Blood Venous blood specimen / Unknown Venipuncture / Unknown 02/26/2025 4:51 AM EDT 02/26/2025 5:13 AM EDT us Ludy Hill MD LAB BLOOD ORDERABLES Final Resul t [facility] [address] [place] [address] * ECG Adult (02/25/2025 6:38 PM EDT) Only the most recent of4 resultswithin the time period is included. EKG DIAGNOSIS CLASS Abnormal MUSE ECG Ventricular Rate 68 BPM MUSE ECG Atrial Rate 68 BPM MUSE ECG NV Interval 198 ms MUSE ECG QRSD Interval 136 ms MUSE ECG QT Interval 450 ms MUSE ECG QTC Interval 478 ms MUSE ECG P [place] 71 degrees MUSE ECG R [place] 265 degrees MUSE ECG T Wave [place] 50 degrees MUSE ECG Diagnosis Sinus rhythm [...] - 0.95 mg/L 02/25/2025 2:27 AM EDT [facility] Blood Venous blood specimen / Unknown Venipuncture / Unknown 02/25/2025 1:36 AM EDT 02/25/2025 1:57 AM EDT us Daniel Ralph MD LAB BLOOD ORDERABLES Final R esult [facility] [address] [place] [address] * NV CRITICAL CARE, E/M 30-74 MINUTES (02/24/2025 7:08 [...] LAB HEMATOLOGY METHOD 02/24/2025 1:14 AM EDT [facility] Blood Venous blood specimen / Unknown Venipuncture / Unknown 02/24/2025 1:01 AM EDT 02/24/2025 1:13 AM EDT us Daniel Ralph MD LAB BLOOD ORDERABLES Final R esult [facility] [address] [place] [address] * (ABNORMAL) Procalcitonin (02/24/2025 1:01 AM EDT) Only the most recent of2 resultswithin the time period is included. Procalcitonin, Plasma 0.12(H) <0.09 ng/mL 02/24/2025 1:44 AM EDT [facility] Blood Venous blood specimen / Unknown Venipuncture / Unknown 02/24/2025 1:01 AM EDT 02/24/2025 1:06 AM EDT Narrative [facility] - 02/24/2025 1:44 AM EDT [...] predict 28 day mortality risk. Please consult [email or web address]-[email or web address] for more information. Test performed at [facility]. us Daniel Ralph MD LAB BLOOD ORDERABLES Final R esult [facility] [address] [place] [address] * (ABNORMAL) Blood gas panel, venous (02/24/2025 1:01 AM EDT) Only the most recent of5 resultswithin the time period is included. pH, Venous 7.43 7.32 - 7.43 LAB HEMATOLOGY METHOD 02/24/2025 1:19 AM EDT [facility] pCO2, Venous 40 37 - 52 mmHg LAB HEMATOLOGY METHOD 02/24/2025 1:19 AM EDT [facility] pO2, Venous 143(H) 25 - 40 mmHg LAB HEMATOLOGY METHOD 02/24/2025 1:19 AM EDT [facility] SO2, Measured, Venous 98(H) 65 - 80 % LAB HEMATOLOGY METHOD 02/24/2025 1:19 AM EDT [facility] Base Excess, Venous 1.9 -2.0 - 3.0 mmol/L LAB HEMATOLOGY METHOD 02/24/2025 1:19 AM EDT [facility] Bicarbonate, Calculated, Venous 27(H) 22 - 26 mmol/L LAB HEMATOLOGY METHOD 02/24/2025 1:19 AM EDT [facility] Hematocrit, Whole Blood 27.7(L) 34.0 - 45.0 % LAB HEMATOLOGY METHOD 02/24/2025 1:19 AM EDT [facility] Sodium, Whole Blood 132(L) 136 - 145 mmol/L LAB HEMATOLOGY METHOD 02/24/2025 1:19 AM EDT [facility] Potassium, Whole Blood 4.3 3.6 - 4.9 mmol/L LAB HEMATOLOGY METHOD 02/24/2025 1:19 AM EDT [facility] Chloride, Whole Blood 99 97 - 107 mmol/L LAB HEMATOLOGY METHOD 02/24/2025 1:19 AM EDT [facility] Glucose, Whole Blood 154(H) 74 - 99 mg/dL LAB HEMATOLOGY METHOD 02/24/2025 1:19 AM EDT [facility] Lactate, Venous, Whole Blood 0.9 0.5 - 2.2 mmol/L LAB HEMATOLOGY METHOD 02/24/2025 1:19 AM EDT [facility] Ionized Calcium, Whole Blood 4.2(L) 4.6 - 5.1 mg/dL LAB HEMATOLOGY METHOD 02/24/2025 1:19 AM EDT [facility] Blood Venous blood specimen / Unknown Venipuncture / Unknown 02/24/2025 1:01 AM EDT 02/24/2025 1:13 AM EDT us Daniel Ralph MD LAB BLOOD ORDERABLES Final R esult [facility] [address] [place] [address] * (ABNORMAL) Comprehensive metabolic panel (02/24/2025 1:01 AM EDT) Only the most recent of2 resultswithin the time period is included. Glucose, Plasma 152(H) 74 - 99 mg/dL 02/24/2025 1:44 AM EDT [facility] BUN, Plasma 40(H) 8 - 23 mg/dL 02/24/2025 1:44 AM EDT [facility] Creatinine, Plasma 2.04(H) 0.60 - 1.10 mg/dL 02/24/2025 1:44 AM EDT [facility] BUN/Creatinine Ratio 20 02/24/2025 1:44 AM EDT [facility] Sodium, Plasma 132(L) 136 - 145 mmol/L 02/24/2025 1:44 AM EDT [facility] Potassium, Plasma 4.9 3.6 - 4.9 mmol/L 02/24/2025 1:44 AM EDT [facility] Chloride, Plasma 97 97 - 107 mmol/L 02/24/2025 1:44 AM EDT [facility] CO2, Plasma 22 22 - 29 mmol/L 02/24/2025 1:44 AM EDT [facility] Anion Gap 13 6 - 16 mmol/L 02/24/2025 1:44 AM EDT [facility] Total Calcium, Plasma 8.6(L) 8.9 - 10.2 mg/dL 02/24/2025 1:44 AM EDT [facility] Total Protein 6.9 6.3 - 7.9 g/dL 02/24/2025 1:44 AM EDT [facility] Albumin, Plasma 3.3(L) 3.5 - 5.2 g/dL 02/24/2025 1:44 AM EDT [facility] AST, Plasma 16 10 - 35 U/L 02/24/2025 1:44 AM EDT [facility] Comment:Hemolyzed, result ma y be falsely increased. ALT, Plasma 15 10 - 35 U/L 02/24/2025 1:44 AM EDT [facility] Alkaline Phosphatase, Plasma 105 46 - 142 U/L 02/24/2025 1:44 AM EDT [facility] Total Bilirubin, Plasma <0.2(L) 0.2 - 1.1 mg/dL 02/24/2025 1:44 AM EDT [facility] eGFRcr 26.6 mL/min/1.7 3m*2 02/24/2025 1:44 AM EDT [facility] Comment:Reported eGFRcr in m L/min/1.73m2 is based the CKD-EPI 2020 equation that does not use a race coefficient. Blood Venous blood specimen / Unknown Venipuncture / Unknown 02/24/2025 1:01 AM EDT 02/24/2025 1:06 AM EDT Daniel Ralph MD LAB BLOOD ORDERABLES Final R esult [facility] [address] [place] [address] * Sodium, urine, random (02/23/2025 3:12 PM EDT) Sodium, Urine 31 mmol/L 02/23/2025 4:03 PM EDT [facility] Urine Urine specimen from urinary conduit / Unknown Non-blood Collection / Unknown 02/23/2025 3:12 PM EDT 02/23/2025 3:24 PM EDT us Daniel Ralph MD LAB URINE ORDERABLES Final R esult Performing Organization Address [facility] Co de Phone Number [facility] [address] [place] [address] * Osmolality, urine (02/23/2025 3:12 PM EDT) Osmolality, Urine 408 50 - 1,200 mOsm/kg 02/23/2025 3:59 PM EDT [facility] Urine Urine specimen from urinary conduit / Unknown Non-blood Collection / Unknown 02/23/2025 3:12 PM EDT 02/23/2025 3:23 PM EDT us Daniel Ralph MD LAB URINE ORDERABLES Final R esult Performing Organization Address [facility] de Phone Number [facility] [address] [place] [address] * (ABNORMAL) Sodium (02/23/2025 3:04 PM EDT) Only the most recent of4 resultswithin the time period is included. Sodium, Plasma 129(L) 136 - 145 mmol/L 02/23/2025 3:44 PM EDT [facility] Blood Venous blood specimen / Unknown Venipuncture / Unknown 02/23/2025 3:04 PM EDT 02/23/2025 3:13 PM EDT us Daniel Ralph MD LAB BLOOD ORDERABLES Final R esult Performing Organization Address [facility] Co de Phone Number [facility] [address] [place] [address] * Osmolality (02/23/2025 3:04 PM EDT) Osmolality, Serum 289 280 - 301 mOsm/Kg 02/23/2025 4:11 PM EDT [facility] Blood Venous blood specimen / Unknown Venipuncture / Unknown 02/23/2025 3:04 PM EDT 02/23/2025 3:13 PM EDT us Daniel Ralph MD LAB BLOOD ORDERABLES Final R esult Performing Organization Address City/[facility] Co de Phone Number [facility] [address] [place] [address] * Streptococcus pneumoniae and Legionella Urinary Antigen (02/23/2025 11:05 AM EDT) Legionella pneumophila serogroup 1 Antigen Result (Urine) Negative Negative 02/24/2025 7:01 AM EDT [facility] Streptococcus pneumoniae Antigen Result (Urine) Negative Negative 02/24/2025 7:01 AM EDT [facility] Urine Urine specimen obtained by clean catch procedure / Unknown Non-blood Collection / Unknown 02/23/2025 11:05 AM EDT 02/23/2025 11:16 AM EDT us Daniel Ralph MD LAB MICROBIOLOGY - GENERAL O RDERABLES Final Result Performing Organization Address [facility] Co de Phone Number [facility] [address] [place] [address] * NV CRITICAL CARE, E/M 30-74 MINUTES (02/23/2025 9:10 [...] Plasma 25.9 ug/mL 02/23/2025 9:20 AM EDT [facility] Blood Venous blood specimen / Unknown Venipuncture / Unknown 02/23/2025 8:34 AM EDT 02/23/2025 8:50 AM EDT us Daniel Ralph MD LAB BLOOD ORDERABLES Final R esult [facility] [address] [place] [address] * (ABNORMAL) Nasopharyngeal Respiratory Panel (02/23/2025 2:05 AM EDT) Pathologist [facility] Human Rhinovirus/Ent erovirus PCR Result Detected( A) Not Detected 02/23/2025 5:07 AM EDT [facility] Swab Nasopharyngeal structure / Unknown Non-blood Collection / Unknown 02/23/2025 2:05 AM EDT 02/23/2025 3:06 AM EDT Narrative [facility] - 02/23/2025 5:07 AM EDT [...] Respiratory PCR Panel is performed using the BriefCam instrument. This test is FDA approved for use with Nasopharyngeal swabs only. This test is used for clinical purposes. It should not be regarded as investigational or for research. The [facility] Microbiology Laboratory is certified under the Clinical Laboratory Improvement Amendments of 1988 (CLIA-88) as qualified to perform high complexity clinical laboratory testing. Daniel Ralph MD LAB MICROBIOLOGY - GENERAL O RDERABLES Final Result Performing Organization Address [facility] de Phone Number [facility] [address] [place] [address] * (ABNORMAL) Methicillin Resistant Staphylococcus aureus (MRSA) by PCR (02/23/2025 2:05 AM EDT) Methicillin Resistant Staphylococcus aureus (MRSA) by PCR Detected( A) Not Detected 02/23/2025 4:19 AM EDT [facility] Swab Both anterior nares / Unknown Non-blood Collection / Unknown 02/23/2025 2:05 AM EDT 02/23/2025 3:06 AM EDT Narrative [facility] - 02/23/2025 4:19 AM EDT [...] O RDERABLES Final Result Performing Organization Address [facility] Phone Number [facility] [address] [place] [address] * (ABNORMAL) Troponin T, High Sensitivity, 2 Hour, Plasma (02/23/2025 2:04 AM EDT) Troponin T, High Sensitivity, 2 Hour 37(H) <14 ng/L 02/23/2025 2:52 AM EDT [facility] Troponin Delta Interpretation Not Calculated 02/23/2025 2:52 AM EDT [facility] Comment:Specimen not collect ed within acceptable timeframe. Delta will not be calculated. Blood Venous blood specimen / Unknown Venipuncture / Unknown 02/23/2025 2:04 AM EDT 02/23/2025 2:24 AM EDT Daniel Ralph MD LAB BLOOD ORDERABLES Final R esult Performing Organization Address City/[facility] [place] [address] * Anti Xa Level Low Molecular Weight (02/23/2025 2:04 AM EDT) Anti Xa Level Low Molecular Weight Heparin 1.12 <2.00 IU/mL LAB COAGULATION METHOD 02/23/2025 2:44 AM EDT [facility] Blood Venous blood specimen / Unknown Venipuncture / Unknown 02/23/2025 2:04 AM EDT 02/23/2025 2:24 AM EDT Narrative [facility] - 02/23/2025 2:44 AM EDT Therapeutic Range: LMWH enoxaparin 1mg/kg/dose, 12hrs - peak (3-5 hours after dose): 0.5 - 1.0 IU/mL LMWH enoxaparin 1.5mg/kg/dose, 24hrs - peak (3-5 hours after dose): 1.0 - 2.0 IU/mL LMWH enoxaparin prophylaxis: Not established Daniel Ralph MD LAB BLOOD ORDERABLES Final R esult Performing Organization Address [facility] Co de Phone Number [facility] [address] [place] [address] * (ABNORMAL) Troponin T, High Sensitivity, 0 Hour Plasma, Reflex to 2 Hour (02/23/2025 12:05 AM EDT) Troponin T, High Sensitivity, 0 Hour 40(H) <14 ng/L 02/23/2025 12:44 AM EDT [facility] Blood Venous blood specimen / Unknown Venipuncture / Unknown 02/23/2025 12:05 AM EDT 02/23/2025 12:17 AM EDT Daniel Ralph MD LAB BLOOD ORDERABLES Final R esult [facility] [address] [place] [address] * (ABNORMAL) Quantitative BAL/PAL/Bronch Wash Culture and Gram StainProtected Alveolar Lavage (02/23/2025 12:00 AM EDT) Culture [id number] CFU/mL Mixed upper respiratory jesus(A) 02/24/2025 12:09 PM EDT [facility] Comment:The organism value f or this result has been updated. These results have been appended to the previously preliminary verified report. Gram Stain Result Numerous Polymorphonuclear leukocytes(A) 02/24/2025 12:09 PM EDT [facility] Gram Stain Result Numerous Gram positive cocci in pairs(A) 02/24/2025 12:09 PM EDT [facility] Gram Stain Result Moderate Gram positive cocci in clusters(A) 02/24/2025 12:09 PM EDT [facility] Gram Stain Result Moderate Gram positive rods(A) 02/24/2025 12:09 PM EDT [facility] Protected Alveolar Lavage (Protected Alveolar Lavage) 02/23/2025 12:00 AM EDT 02/23/2025 1:17 AM EDT us Daniel Ralph MD LAB MICROBIOLOGY - GENERAL O RDERABLES Final Result Performing Organization Address [facility] de Phone Number [facility] [address] [place] [address] * (ABNORMAL) N-Terminal Probnp (02/22/2025 10:03 PM EDT) Only the most recent of2 resultswithin the time period is included. N-Terminal, PROBNP, Plasma 1,542(H) 0 - 899 pg/mL 02/22/2025 10:48 PM EDT [facility] Blood Venous blood specimen / Unknown Venipuncture / Unknown 02/22/2025 10:03 PM EDT 02/22/2025 10:11 PM EDT us Bobby Parra MD LAB BLOOD ORDERABLES Final R esult Performing Organization Address [facility] Co de Phone Number [facility] [address] [place] [address] * Maira auris Surveillance by PCR (02/22/2025 10:02 PM EDT) Maira auris PCR Result Not Detected Not Detected 02/24/2025 7:03 AM EDT [facility] Swab (Axilla and Groin) Non-blood Collection / Unknown 02/22/2025 10:02 PM EDT 02/22/2025 10:16 PM EDT Narrative [facility] - 02/24/2025 7:03 AM EDT This PCR assay was developed and its performance characteristics determined by [facility] as appropriate for clinical purposes. This assay has not been cleared or approved by the FDA, but is performed in a CLIA regulated laboratory that is qualified to perform high-complexity testing. Bobby Parra MD LAB MICROBIOLOGY - GENERAL O RDERABLES Final Result Performing Organization Address [facility] de Phone Number [facility] [address] [place] [address] * (ABNORMAL) Multi Drug Resistance Test (02/22/2025 10:02 PM EDT) Pathologist [facility] Culture Methicillin-Resist ant Staphylococcus aureus(AA) 02/24/2025 6:58 AM EDT [facility] Swab (Nares and Samantha Rectal) Non-blood Collection / Unknown 02/22/2025 10:02 PM EDT 02/22/2025 10:16 PM EDT Narrative [facility] - 02/24/2025 6:58 AM EDT This test was developed and its performance characteristics determined by the [facility] Clinical Microbiology Laboratory. Although the media is FDA-approved, it is not FDA-approved for all specimen types submitted. The FDA has determined that such clearance or approval is not necessary. This test is used for surveillance purposes. It should not be regarded as investigational or for research. The [facility] Clinical Microbiology Laboratory is certified under the Clinical Laboratory Improvement Amendments of 1988 (CLIA-88) as qualified to perform high complexity clinical laboratory testing. us Bobby Parra MD LAB MICROBIOLOGY - GENERAL O RDERABLES Final Result [facility] [address] [place] [address] * Drug abuse screen (02/22/2025 10:01 PM EDT) Amphetamine Screen Urine Negative Cutoff: 500 ng/mL 02/23/2025 12:22 AM EDT [facility] Benzodiazepines Screen Urine Negative Cutoff: 200 ng/mL 02/23/2025 12:22 AM EDT [facility] Cannabinoid Screen Urine Negative Cutoff: 50 ng/mL 02/23/2025 12:22 AM EDT [facility] Cocaine Screen Urine Negative Cutoff: 300 ng/mL 02/23/2025 12:22 AM EDT [facility] Barbiturate Screen Urine Negative Cutoff: 200 ng/mL 02/23/2025 12:22 AM EDT [facility] Opiate Screen Urine Negative Cutoff: 300 ng/mL 02/23/2025 12:22 AM EDT [facility] Methadone Screen Urine Negative Cutoff: 300 ng/mL 02/23/2025 12:22 AM EDT [facility] Buprenorphine Screen Urine Negative Cutoff: 10 ng/mL 02/23/2025 12:22 AM EDT [facility] Fentanyl Screen Urine Presumptive positive. Confirmation by LC-MS/MS to follow. Cutoff: 1 ng/mL 02/23/2025 12:22 AM EDT [facility] Oxycodone Screen Urine Negative Cutoff: 100 ng/mL 02/23/2025 12:22 AM EDT [facility] Urine Urine specimen obtained by clean catch procedure / Unknown Non-blood Collection / Unknown 02/22/2025 10:01 PM EDT 02/22/2025 10:11 PM EDT us Daniel Gordillo MD LAB URINE ORDERABLES Final Result Performing Organization Address City/[facility]/ZIP Co de Phone Number [facility] [address] [place] [address] * (ABNORMAL) Fentanyl Urine Confirm (02/22/2025 10:01 PM EDT) Fentanyl 1(H) <1 ng/mL 02/24/2025 9:18 AM EDT [facility] Norfentanyl 2(H) <2 ng/mL 02/24/2025 9:18 AM EDT [facility] Urine Urine specimen obtained by clean catch procedure / Unknown Non-blood Collection / Unknown 02/22/2025 10:01 PM EDT 02/22/2025 10:11 PM EDT Narrative [facility] - 02/24/2025 9:18 AM EDT Drug analysis is confirmed by LC-MS/MS (LC Tandem Mass Spectrometry) on Urine specimens. This test was developed and its performance characteristics determined by [facility]. It has not been cleared or approved by the FDA. The laboratory is regulated under CLIA as qualified to perform high-complexity testing. This test is used for clinical purposes. Testing is performed at the [facility], Special [facility]. us Daniel Gordillo MD LAB URINE ORDERABLES Final Result [facility] [address] [place] [address] * (ABNORMAL) POCT arterial blood gas gem [...] PM EDT [facility] Granite Worker ID Slim Morton 02/22/2025 9:06 PM EDT [facility] Blood, Arterial Whole blood specimen / Unknown 02/22/2025 9:05 PM EDT 02/22/2025 9:06 PM EDT us Daniel Ralph MD LAB POINT OF CARE TE ST DOCKED DEVICE UNSOLICITED RESULTS Final Result [facility] [address] [place] [address] * Blood Culture (Aerobic/Anaerobet Set) (02/22/2025 8:55 PM EDT) Culture No growth at day 5 02/27/2025 10:01 PM EDT [facility] Blood Structure of right hand / Unknown Venipuncture / Unknown 02/22/2025 8:55 PM EDT 02/22/2025 9:29 PM EDT Narrative [facility] - 02/27/2025 10:01 PM EDT Low blood volume submitted, results may be compromised us Daniel Gordillo MD LAB MICROBIOLOGY - GENERAL ORDERABLES Final Result Performing Organization Address [facility]/[place] [address] * Ionized calcium, serum (02/22/2025 8:36 PM EDT) Ionized Calcium, Serum 4.8 4.6 - 5.3 mg/dL LAB HEMATOLOGY METHOD 02/22/2025 9:42 PM EDT [facility] Blood Venous blood specimen / Unknown Venipuncture / Unknown 02/22/2025 8:36 PM EDT 02/22/2025 8:53 PM EDT us Bobby Parra MD LAB BLOOD ORDERABLES Final R esult Performing Organization Address City/[facility]/[place] [address] * XR Chest 1 View (02/22/2025 7:05 [...] <10 <10 mg/dL 02/22/2025 8:13 PM EDT [facility] Blood Venous blood specimen / Unknown Venipuncture / Unknown 02/22/2025 6:41 PM EDT 02/22/2025 8:00 PM EDT Narrative [facility] - 02/22/2025 8:13 PM EDT Enzymatic Assay: Performed on Hector Rufus. us Daniel Gordillo MD LAB BLOOD ORDERABLES Final Result Performing Organization Address City/[facility]/[place] [address] * Thyroid Stimulating Hormone, Plasma (02/22/2025 6:41 PM EDT) Thyroid Stimulating Hormone, Plasma 1.03 0.40 - 4.20 uIU/mL 02/22/2025 7:24 PM EDT [facility] Blood Venous blood specimen / Unknown Venipuncture / Unknown 02/22/2025 6:41 PM EDT 02/22/2025 6:47 PM EDT Daniel Gordillo MD LAB BLOOD [place] [address] * Free T4, Plasma (02/22/2025 6:41 PM EDT) Free T4, Plasma 1.3 0.8 - 1.7 ng/dL 02/22/2025 7:24 PM EDT [facility] Blood Venous blood specimen / Unknown Venipuncture / Unknown 02/22/2025 6:41 PM EDT 02/22/2025 6:47 PM EDT Daniel Gordillo MD LAB BLOOD ORDERABLES Final Result Performing Organization Address City/[facility]/ZIP Co de Phone Number [facility] [address] [place] [address] * (ABNORMAL) Hemoglobin A1c (02/22/2025 6:41 PM EDT) Hemoglobin A1c 9.2(H) <5.7 % 02/23/2025 1:40 PM EDT [facility] Blood Venous blood specimen / Unknown Venipuncture / Unknown 02/22/2025 6:41 PM EDT 02/22/2025 6:47 PM EDT Narrative [facility] - 02/23/2025 1:40 PM EDT HA1C Interpretive Data: Diagnosis of Diabetes: Diabetic > or = 6.5% Pre-diabetic 5.7 to 6.4% Non-diabetic < or = 5.6% Glycemic Targets for Type I and Type II Diabetics: Non- Adults <7.0% Adults <6.0% Children and Adolescents <7.5% Source: [place] [employer]. Standards of medical care in diabetes,2017. Diabetes Care.2017:40 (suppl 1):S1-S135. Bobby Parra MD LAB BLOOD ORDERABLES Final R esult Performing Organization Address City/[facility]/ZIP Co de Phone Number [facility] [address] [place] [address] * (ABNORMAL) POCT venous blood gas gem (02/22/2025 6:37 PM EDT) pH, Venous 7.28(L) 7.32 - 7.43 02/22/2025 6:38 PM EDT [facility] pCO2, Venous 60(HH) 37 - 52 mm Hg 02/22/2025 6:38 PM EDT [facility] pO2, Venous 41(H) 25 - 40 mm Hg 02/22/2025 6:38 PM EDT [facility] SO2, Venous 72 65 - 80 % 02/22/2025 6:38 PM EDT [facility] Base Excess/Deficit, Venous 0.8 -2 - 3 mmol/L 02/22/2025 6:38 PM EDT [facility] HCO3, Venous 28.2(H) 22 - 26 mmol/L 02/22/2025 6:38 PM T [facility] Hemoglobin, Venous 9.2(L) 11.2 - 15.7 g/dL 02/22/2025 6:38 PM T [facility] Hematocrit, Venous 28.0(L) 34.0 - 45.0 % 02/22/2025 6:38 PM EDT [facility] Sodium, Venous 126(L) 136 - 145 mmol/L 02/22/2025 6:38 PM T [facility] Potassium, Venous 4.6 3.6 - 4.9 mmol/L 02/22/2025 6:38 PM EDT [facility] Comment:Hemolyzed, result ma y be falsely increased. POCT Chloride, Venous 94(L) 97 - 107 mmol/L 02/22/2025 6:38 PM EDT [facility] Glucose, Venous 139(H) 74 - 99 mg/dL 02/22/2025 6:38 PM T [facility] Ionized Calcium, Venous 4.9 4.6 - 5.1 mg/dL 02/22/2025 6:38 PM T [facility] Lactate, Venous 0.6 0.5 - 2.2 mmol/L 02/22/2025 6:38 PM EDT [facility] Body Temperature 37.0 Celsius 02/22/2025 6:38 PM T [facility] pH, Temp Corrected, Venous 7.28(L) 7.32 - 7.43 02/22/2025 6:38 PM EDT [facility] pCO2, Temp Corrected, Venous 60(HH) 37 - 52 mm Hg 02/22/2025 6:38 PM T [facility] pO2, Temp Corrected, Venous 41(H) 25 - 40 mm Hg 02/22/2025 6:38 PM EDT [facility] Granite Worker ID Joao Jackson 02/22/2025 6:38 PM T [facility] Blood, Venous Whole blood specimen / Unknown 02/22/2025 6:37 PM EDT 02/22/2025 6:38 PM EDT us Generic Provider Poct LAB POINT OF CARE TEST DOCKED DEVICE UNSOLICITED RESULTS Final Result [facility] [address] [place] [address] * INTUBATION (02/22/2025 6:13 PM EDT) Narrative [...] MICROBIOLOGY - GENERAL O RDERABLES Final Result [facility] [address] [place] [address] * NV AN ELECTIVE ENDOTRACHEAL AIRWAY, PB ANESTHESIA PLACEHOLDER (01/31/2025 9:58 AM EDT) Narrative Migue Seay CRNA - 01/31/2025 9:58 AM EDT Migue Seay CRNA 01/31/2025 10:45 AM Airway Date/Time: 01/31/2025 9:58 AM Reason: elective Airway not difficult General Information and Staff Patient location during procedure: OR CRUDE OIL TREATER: Migue Seay CRNA Performed: [place]ORET[place] Patient Condition [...] following split bolus administration of IV contrast, [id number], 150 mL. Reformatted images in the coronal [...] on 01/03/2025 3:33 PM us Cayla Erazo VENDING MACHINE COIN COLLECTOR, DNP IMG CT PROCEDURES Final Result * [...] are demonstrated at the levels of the RESIN COATER, SECOND BALLER and DPA. Segmental pressures are within normal limits with a SECOND BALLER JASEN of 0.98 (138 mmHg) and a DPA JASEN of 1.28 (181 mmHg). Digit pressures are 115 mmHg. Left: AKA is noted. Multiphasic waveforms are demonstrated at the level of the RESIN COATER. 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 COMPARISON: None. FINDINGS: Right: Multiphasic waveforms are demonstrated at the levels of the RESIN COATER,SECOND BALLER and DPA. Segmental pressures are within normal limits with a SECOND BALLER ABIof 0.98 (138 mmHg) and a DPA JASEN of 1.28 (181 mmHg). Digit pressures [id number] mmHg. Left: AKA is noted. Multiphasic waveforms are demonstrated at the level ofthe RESIN COATER. IMPRESSION: Right: Normal study; No evidence of [...] Antibody Negative Negative 08/15/2024 7:08 AM EST [facility] Blood Venous blood specimen / Unknown Venipuncture / Unknown 08/15/2024 5:35 AM EST 08/15/2024 6:06 AM EST Marcy Zhong MD LAB BLOOD ORDERABLES Final Resu lt [facility] [address] [place] [address] * Cytology (04/10/2013 12:00 AM EDT) Specimen from axilla structure obtained by fine needle aspiration biopsy (specimen) 04/10/2013 04/10/2013 2:2 3 PM EDT Narrative [facility] - 04/10/2013 3:59 PM EDT [facility] MR #: [id number] [facility] E[place] [id number] (Age: 52) FW Collect Date: 04/10/2013 00:00 Receipt Date: 04/10/2013 14:23 Page 1 DEPARTMENT OF PATHOLOGY AND LABORATORY MEDICINE CYTOPATHOLOGY REPORT Email: [email or web address] ATTENDING MD/Practitioner: Kimmie Aguilera MD Service: [facility] Location: [facility] OTHER MD(S): Monserrat Sands MD Reported: 04/10/2013 [...] 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 Jonatan [...] RECEPTOR POSITIVE STATUS (ER POSITIVE) F: A; 10181 ASP INTER, [address], [address] SNOMED CODES: A; W91588 P24405 P60321 E85793 Z95403 IT8330 P1149 HG5432 A resident has participated in this service. A pathologist has performed and is responsible for the reported pathologic evaluation. 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 Yes Care Teams Home Companion Relationship Specialty Start Date End Date Vignesh Pickens MD [address] [place] [address] PCP - General 12/31/24 Cayla Erazo APRN, DNP [address] [place] [address] Nurse Practitioner Urology 12/20/24
--- OUTSIDE RECORDS SUMMARY | 2025-03-28 08:22 | XMS_ITS | Clinical Summary ---
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 Benign Essential Hypertension 47646996 (SNOMED CT) 01/14 Resolved 01/14 Helen Salazar Benign hypertension 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) 70561345 (SNOMED CT) 10/25 Active 10/25 Helen Salazar Benign hypertension Presence of left artificial knee joint Z96.652 (ICD-10-CM ) 10/25 Active 10/25 Helen Salazar Presence of left artificial knee joint Hx of MRSA infection 413260589 (SNOMED CT) 10/25 Active 10/25 Helen Salazar H/O: infectious disease Hx of malignant neoplasm of breast 342055612 (SNOMED CT) 03/02 Resolved 03/02 Helen Salazar History of malignant neoplasm of breast Cellulitis of left leg 324763099 (SNOMED CT) 03/02 Resolved 03/02 Helen Salazar Cellulitis of lower limb 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) use of suppressive antibiotics Z79.2 (ICD-10-CM ) 01/14 Inactive 01/14 Helen Salazar 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) use of antibiotics Anemia in chronic diseases(docu ment disease) D63.8 (ICD-10-CM ) 01/14 Active 01/14 Helen Salazar Anemia in other chronic diseases classified elsewhere Chronic respiratory failure with hypoxia 21889750 (SNOMED CT) 01/14 Active 01/14 Helen Salazar Acute respiratory failure COPD 79870540 (SNOMED CT) 01/14 Active 01/14 Helen Salazar Chronic obstructive pulmonary disease DM Type II E11.9 (ICD-10-CM ) 01/14 Inactive 01/14 Helen Salazar Type 2 diabetes mellitus without complications Benign Essential Hypertension 40247449 (SNOMED CT) 01/14 Removed 01/14 Helen Salazar Benign hypertension Acquired absence of left knee joint 130852459 (SNOMED CT) 03/02 Resolved 03/02 Helen Salazar History of operative procedure on knee Obesity due to excess calories E66.09 (ICD-10-CM ) 03/02 Resolved 03/02 Helen Salazar Other obesity due to excess calories detention (current) use of anticoagulant s Z79.01 (ICD-10-CM ) 03/02 Resolved 03/02 Helen Salazar 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) use of anticoagulants Staph epi infection B95.7 (ICD-10-CM ) 03/02 Resolved 03/02 Helen Salazar Other staphylococcus as the cause of diseases classified elsewhere Diarrhea 47152314 (SNOMED CT) 09/28 Resolved 09/28 Helen Salazar Diarrhea Staph hominis infection B95.7 (ICD-10-CM ) 09/28 Resolved 09/28 Helen Salazar Other staphylococcus as the cause of diseases classified elsewhere Staph hominis infection B95.7 (ICD-10-CM ) 09/28 Removed 09/28 Arie Dougherty MD Other staphylococcus as the cause of diseases classified elsewhere Diarrhea 96227279 (SNOMED CT) 09/28 Removed 09/28 Arie Dougherty MD Diarrhea Acquired absence of left knee joint 618527079 (SNOMED CT) 03/02 Removed 03/02 Helen Salazar History of operative procedure on knee Cellulitis of left leg 762856735 (SNOMED CT) 03/02 Removed 03/02 Helen Salazar Cellulitis of lower limb Knee, left, subsequent encounter, infection/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 T84.54xD (ICD-10-CM ) 03/02 Active 03/02 Helen Salazar Infection and inflammatory reaction due to internal left knee prosthesis, subsequent encounter Staph epi infection B95.7 (ICD-10-CM ) 03/02 Removed 03/02 Helen Salazar Other staphylococcus as the cause of diseases classified elsewhere 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) use of anticoagulant s Z79.01 (ICD-10-CM ) 03/02 Removed 03/02 Helen Salazar detention (current) use of anticoagulants Obesity due to excess calories E66.09 (ICD-10-CM ) 03/02 Removed 03/02 Helen Salazar Other obesity due to excess calories Hx of malignant neoplasm of breast 258467044 (SNOMED CT) 03/02 Removed 03/02 Helen Salazar History of malignant neoplasm of breast Medications Medication Instructions Start Date Stop Date Generic Name NDC Provider DOXYCYCLINE MONOHYDRATE 100 MG CAPS Take 1 capsule by mouth twice a day 10/25 doxycycline monohydrate 30239627116 Arie Dougherty MD ceftriaxone recon soln 2GM IV Q24hrs [facility] 02/18 ceftriaxone recon soln Temi Norris Cubicin RF 800mg IV Q48hrs [facility] 02/18 daptomycin Temi Norris DOXYCYCLINE MONOHYDRATE 100 MG CAPS Take 1 capsule by mouth twice a day 02/03 doxycycline monohydrate 05510025340 Arie Dominguez RF 800mg IV Q48hrs [facility] 02/18 daptomycin Nubia Ervin ceftriaxone recon soln 2GM IV Q24hrs [facility] 02/18 ceftriaxone recon soln Nubiadeidre Ervin IPRATROPIUM-ALBUT MIKE 0.5-2.5 (3) MG/3ML SOLN 3 ml by mouth PRN 01/27 ipratropium-albut mike 03616686548 Nubia Minor Gaviscon 95-358 mg/15 mL suspension by mouth four times a day 30 mL aluminum hydrox-magnesium carb 63516151897 Nubia Minor IPRATROPIUM-ALBUT MIKE 0.5-2.5 (3) MG/3ML SOLN using nebulizer every six hours PRN ipratropium-albut mike 10035269854 Nubia Minor BASAGLAR KWIKPEN 100 UNIT/ML SOPN subcutaneously once a day insulin glargine 43011042797 Nubia Minor MUCUS RELIEF D 60-600 MG [id number] by mouth twice a day pseudoephedrine-g uaifenesin 69390518560 Nubia Minor VITAMIN B-12 100 MCG TABS by mouth once a day cyanocobalamin (vitamin b-12) 70897983581 Nubia Minor PERCOCET 5-325 MG TABS 1-2 tablet every four to six hours oxycodone-acetami nophen 98262147265 Nubia Minor BIOTIN 1000 MCG TABS by mouth once a day biotin 81056366898 Nubia Minor GABAPENTIN 800 MG TABS by mouth four times a day as needed gabapentin 68602874531 Nubia Minor ATORVASTATIN CALCIUM 40 MG TABS by mouth every morning Hold while on daptomycin atorvastatin 18267396289 Nubia Minor FERROUS SULFATE 325 (65 Fe) MG TABS by mouth once a day ferrous sulfate 41911622279 Nubia Minor VENLAFAXINE HCL 75 MG TABS by mouth twice a day venlafaxine 69192805855 Nubia Minor CITRACAL MAXIMUM 315-6.25 MG-MCG TABS by mouth twice a day calcium citrate-vitamin d3 28357483753 Nubia Poncho JANUMET XR 50-1000 MG NR41O-PDI by mouth twice a day sitagliptin phos-metformin 55315637206 Nubia Minor GNP HYDROCORTISONE/AL OE 1 % CREA Apply to skin twice a day as needed hydrocortisone acetate 68318089950 Nubia Minor MS CONTIN 15 MG CR-TABS by mouth twice a day morphine 22428857545 Nubia Minor OMEPRAZOLE 20 MG TBEC 2 tablet by mouth once a day omeprazole 33227464989 Nubia Minor DOXYCYCLINE HYCLATE 100 MG TABS Take 1 tablet by mouth twice a day 01/11 doxycycline hyclate 32227791063 Nubia Minor CARVEDILOL 12.5 MG TABS by mouth twice a day carvedilol 21839573747 Nubia Minor PROMETHAZINE HCL 25 MG TABS by mouth three times a day as needed promethazine 86242756404 Nubia Minor TIZANIDINE HCL 4 MG TABS by mouth three times a day as needed tizanidine 91871557381 Nubia Minor LACTULOSE 10 GM/15ML SOLN 30 ml by mouth as needed lactulose 90152039862 Nubia Minor COLACE 100 MG CAPS by mouth twice a day as needed docusate sodium 37774677936 Nubia Minor XARELTO TABLET 15 mg 15 mg Take 1 by mouth once a day XARELTO TABLET 15 mg 15 mg Nubia Minor ANASTROZOLE 1 MG TABS by mouth once a day anastrozole 76650913554 Nubia Minor ACETAMINOPHEN 500 MG TABS by mouth every six hours PRN acetaminophen 45771273589 Nubia Minor LOPERAMIDE HCL 2 MG CAPS by mouth once a day PRN loperamide 38895635971 Nubia Minor ASCORBIC ACID 500 MG TABS by mouth 0.5 tab am and 0.5 tab pm ascorbic acid (vitamin c) 32025515659 Nubia Minor BACLOFEN 10 MG TABS by mouth three times a day baclofen 80806027387 Nubia Minor BREO ELLIPTA 100-25 MCG/ACT AEPB every morning fluticasone furoate-vilantero l 65949489687 Nubia Minor BUMETANIDE 2 MG TABS by mouth twice a day bumetanide 10099993175 Nubia Minor CALCIUM 600 1500 (600 Ca) MG TABS by mouth twice a day calcium carbonate 56605316727 Nubia Minor D3 HIGH POTENCY 10 MCG (400 UNIT) TABS by mouth 2.5 units am and 2.5 units pm cholecalciferol (vitamin d3) 72923997667 Nubia Minor PLAVIX 75 MG TABS by mouth every morning clopidogrel 53909849862 Nubia Minor VITAMIN B-12 1000 MCG TABS by mouth every morning cyanocobalamin (vitamin b-12) 09845170652 Nubia Minor FLONASE ALLERGY RELIEF 50 MCG/ACT SUSP intranasally every morning fluticasone propionate 89735553433 Nubia Minor FOSAMAX 70 MG TABS by mouth once a week alendronate 38107918534 Nubia Minor GLIPIZIDE ER 2.5 MG [id number]-JWS by mouth every morning 0.5 tab glipizide 14263826341 Nubia Minor LANTUS SOLOSTAR 100 UNIT/ML SOPN 8 unit subcutaneously every night insulin glargine 22160672360 Nubia Minor IPRATROPIUM-ALBUT MIKE 0.5-2.5 (3) MG/3ML SOLN 3 ml by mouth PRN 01/27 ipratropium-albut mike 10410218248 Nubia Minor JARDIANCE 10 MG TABS by mouth every morning empagliflozin 49611796340 Nubia Minor MAGNESIUM OXIDE 400 MG TABS by mouth twice a day magnesium oxide 79708650236 Nubia Minor METFORMIN HCL 1000 MG TABS by mouth twice a day metformin 06110291217 Nubia Minor MULTI-VITAMIN HP/MINERALS CAPS by mouth once a day multivitamin,tx-m inerals 57579913397 Nubia Minor ONDANSETRON HCL 4 MG TABS by mouth twice a day PRN ondansetron hcl 24156226166 Nubia Minor PANTOPRAZOLE SODIUM 20 MG TBEC by mouth once a day pantoprazole 99764060373 Nubia Minor PREGABALIN 50 MG CAPS by mouth three times a day pregabalin 05859616377 Nubia Isaac SENNA 8.6 MG TABS by mouth 2 tabs PRN sennosides 90333949069 Nubia Isaac SPIRONOLACTONE 50 MG TABS by mouth once a day spironolactone 94138375529 Nubia Isaac TRAZODONE HCL 150 MG TABS by mouth once a day 2 tabs trazodone 32358328148 Nubia Isaac VALSARTAN 80 MG TABS by mouth twice a day valsartan 57765173669 Nubia Isaca VENLAFAXINE HCL ER 150 MG [id number] by mouth every morning venlafaxine 93246461876 Nubia Isaac VANCOMYCIN HCL SOLR 1gm IV q 12 x 6wks [facility] [phone] 10/05 VANCOMYCIN HCL SOLR 28901190753 Libby Cabello JIMI MS CONTIN 15 MG CR-TABS by mouth twice daily 01/11 MORPHINE SULFATE 34825098230 Arie Dougherty MD PERCOCET 5-325 MG TABS 1-2 tabs, every four to six hours, do not exceed 4000mg of acetaminophen per day 01/11 OXYCODONE-ACETAMI NOPHEN 49822829539 Arie Dougherty MD [facility] IRON 325 (65 Fe) MG TABS by mouth daily 01/11 FERROUS SULFATE 34515017678 Arie Dougherty MD COLACE 100 MG CAPS by mouth twice daily as needed 02/19 DOCUSATE SODIUM 80811431123 Arie Dougherty MD DOXYCYCLINE HYCLATE 100 MG TABS take 1 tab po BID 02/19 DOXYCYCLINE HYCLATE 57063136738 Arie Dougherty MD XARELTO TABLET Take one by mouth once daily. 01/11 RIVAROXABAN TABS 97486053269 Arie Dougherty MD COUMADIN 5 MG ORAL TABLET by mouth, AC dinner 10/17 WARFARIN SODIUM 71035128148 Arie Dougherty MD VANCOMYCIN HCL SOLR 1gm IV q 12 x 6wks [facility] [phone] 08/22 VANCOMYCIN HCL SOLR 65890238071 [facility] VANCOMYCIN HCL SOLR 750 mg IV q 12 x 6wks [facility] [phone] 03/31 VANCOMYCIN HCL SOLR 47217815749 [facility] VANCOMYCIN HCL SOLR 750 mg IV q 12 x 6wks [facility] [phone] 08/22 VANCOMYCIN HCL SOLR 19312296853 Daily Lewis RN VENLAFAXINE HCL 75 MG TABS by mouth twice daily 01/11 VENLAFAXINE HCL 65926275354 Kulwant P PROMETHAZINE HCL 25 MG TABS by mouth three times a day as needed 01/11 PROMETHAZINE HCL 08260331974 Kulwant P B-12 100 MCG TABS by mouth daily 09/29 CYANOCOBALAMIN 66779320325 Kulwant P JANUMET XR 50-1000 MG MO36L-BFI by mouth twice daily 01/11 SITAGLIPTIN-METFO RMIN HCL 21936124935 Kulwant P TIZANIDINE HCL 4 MG TABS by mouth three times a day as needed 01/11 TIZANIDINE HCL 01140882171 Kulwant P GABAPENTIN 800 MG TABS by mouth four times a day as needed 01/11 GABAPENTIN 01898660497 Kulwant P CARVEDILOL 12.5 MG TABS by mouth twice daily 01/11 CARVEDILOL 86049258437 Kulwant P ANASTROZOLE 1 MG TABS by mouth daily 01/11 ANASTROZOLE 36682763430 Kulwant P CITRACAL MAXIMUM 315-6.25 MG-MCG TABS by mouth twice daily 01/11 CALCIUM CITRATE-VITAMIN D 70567472469 Kulwant P [facility] OMEPRAZOLE 20 MG TBEC 2 tabs by mouth once daily 01/11 OMEPRAZOLE 74301067464 Kulwant P BIOTIN 1000 MCG TABS by mouth daily 01/11 BIOTIN 26143298891 Kulwant P ATORVASTATIN CALCIUM 40 MG TABS by mouth at bedtime 01/11 ATORVASTATIN CALCIUM 77848306541 Kulwant P COUMADIN 5 MG ORAL TABLET by mouth, AC dinner 05/19 WARFARIN SODIUM 66538953426 Kulwant P LACTULOSE SOLN 30mL by mouth as needed 02/19 LACTULOSE SOLN 93768763235 Kulwant P HYDROCORTISONE ACETATE 1 % CREA apply topically twice a day as needed 10/25 HYDROCORTISONE ACETATE 16641550147 Kulwant P MS CONTIN 15 MG CR-TABS by mouth twice daily 11/20 MORPHINE SULFATE 52707713351 Kulwant P [facility] IRON 325 (65 Fe) MG TABS by mouth daily 11/20 FERROUS SULFATE 77859926214 Kulwant P COLACE 100 MG CAPS by mouth twice daily as needed 02/19 DOCUSATE SODIUM 86871673927 Kulwant P PERCOCET 5-325 MG TABS 1-2 tabs, every four to six hours, do not exceed 4000mg of acetaminophen per day 11/20 OXYCODONE-ACETAMI NOPHEN 80231887652 Kulwant P VANCOMYCIN HCL SOLR 1gm IV q 12 x 6wks [facility] [phone] 08/22 VANCOMYCIN HCL SOLR 87890927665 [facility] Medications Administered No information available. Allergies, Adverse [...] or Plasma Office Visit: rm #8 DIET MANAGER TRANSIT yes Dietary management education, guidance, and counseling [...] Oral Antibiotic CPT-ca Continue IV antibiotics 2022 CPT-72151 CMP [id number] CBC with Differential 2022 CPT-02456 C- reactive protein [id number], [id number] CPK CPT-J7030 IV Fluids CPT-sl STAT Labs CPT-sl STAT Labs CPT-sl STAT Labs CPT-48932 C- reactive protein CPT-66965 Sedimentation Rate (ESR) 201 02/20/04 CPT-89978 Vancomycin Trough CPT-44771 CMP [id number] CBC with Differential 2015 CPT-89253 C- reactive protein CPT-56462 Sedimentation Rate (ESR) 201 01/31/26 CPT-ca Continue IV antibiotics 2015 CPT-wpc Weekly PICC Line Care 09/28 CPT-81363 CMP [id number] CBC with Differential 2015 CPT-88299 Vancomycin Trough CPT-73193 C- reactive protein CPT-37579 Sedimentation Rate (ESR) 201 01/31/07 CPT-cdpcr C-Diff PCR CPT-isi New IV antibiotic CPT-54326 PICC Line Insertion CPT-02542 [facility] [id number] CBC with Differential 2015 CPT-80983 C- reactive protein CPT-09024 Sedimentation Rate (ESR) 201 01/30/30 CPT-DC Discontinue IV antibiotics 2 CPT-PICREM PICC Removal CPT-ca Continue IV antibiotics 2015 CPT-36846 CMP [id number] CBC with Differential 2015 CPT-25678 C- reactive protein CPT-40018 Sedimentation Rate (ESR) 201 01/27/01 CPT-32355 Vancomycin Trough CPT-ca Continue IV antibiotics 2015 CPT-43697 CMP [id number] CBC with Differential 2015 CPT-47318 C- reactive protein CPT-16502 Sedimentation Rate (ESR) 201 01/27/20 CPT-65279 Vancomycin Trough CPT-ca Continue IV antibiotics 2015 [...]
--- OUTSIDE RECORDS SUMMARY | 2025-03-28 08:22 | XMS_ITS | Encounter Summary ---
Author Organization [facility] Address [address] [place] [address] Care Team Providers Care Microarray Specialist Name Role Phone Cayla Erazo APRN, DNP Unavailable [phone] Vignesh Pickens MD Primary Care Provider [phone] Encounter Details Date Type Department Care Team [...] drink first t rodríguez in the morning (EYE-FASHION JOURNALIST) to steady your nerves or to get [...] Description 05/16/2025 8:00 AM EDT Office Visit [facility] [place] [address], [address] [place] [address] Karly Gracia MD [address] [place] [address] 06/07/2025 1:00 PM EDT Office Visit [facility] [address] [place] [address] Tom Iraheta MD [address] [place] [address] documented as of this encounter [...] documented as of this encounter Care Teams Microarray Specialist Relationship Specialty Start Date End Date Vignesh Pickens MD [address] [place] [address] PCP - General 5/12/25 Cayla Erazo, LIZANDRO, DNP [address] [phone] Nurse Practitioner Urology 12/20/24 documented as of this encounter
--- OUTSIDE RECORDS SUMMARY | 2025-03-28 08:22 | XMS_ITS | Clinical Summary ---
Author Organization [facility] Address [address] [place] [address] Phone Care Team Providers Care Cargo Handler Name Role Phone Foreign Spangler MD, Andrei Eden Primary Care Provid er Allergies No known [...] [place] A [place] B [place] [id number] Care Teams Cargo Handler Relationship Specialty Start Date End Date Andrei Carrasquillo Sr., MD [address] [place] [address] PCP - General Postdoctoral Fellow 03/17/16
--- OUTSIDE RECORDS SUMMARY | 2025-03-28 08:23 | XMS_ITS | Encounter Summary ---
Author Organization [facility] Address [address] [place] [address] Care Team Providers Care It Help Desk Analyst Name Role Phone Daniel Barba MD Primary Care Provider [phone] Judy Huff PONY RIDE OPERATOR Unavailable Unavailabl e Cayla Erazo APRN, DNP Unavailable [phone] Vignesh Pickens MD Primary Care Provider + [phone] Encounter Details Date Type Department Care Team (Late Contact Info) Description 08/11/2022 Orders Only External Location [address] [place] [address] Provider, External Social History Tobacco Use Types [...] Department Care Team (Late Contact Info) Description 05/16/2025 8:00 AM EDT Office Visit [facility] [place] [address] [place] [address] Karly Gracia MD [address] [place] [address] 06/07/2025 1:00 PM EDT Office Visit [facility] [address] [place] [address] Tom Iraheta MD [address] [place] [phone] documented as of this encounter Procedures Procedure [...] documented as of this encounter Care Teams It Help Desk Analyst Relationship Specialty Start Date End Date Daniel Barba MD [address] [place] [address] PCP - General 01/02/21 12/30/24 Vignesh Pickens MD [address] [place] [address] PCP - General 12/31/24 Judy Huff, PONY RIDE OPERATOR [facility] TCM Nurse 08/24/24 08/24/24 Cayla Erazo APRN, DNP [address] [facility] [address] [place] [address] Nurse Practitioner Urology 12/20/24 documented as of this encounter
--- OUTSIDE RECORDS SUMMARY | 2025-03-28 08:23 | XMS_ITS | Encounter Summary ---
Author Organization [facility] Address [address] [place] [address] Care Team Providers Care Optimization Engineer Name Role Phone Daniel Barba MD Primary Care Provider [phone] Judy Huff PASSENGER SERVICE SUPERVISOR Unavailable UnavailCayla Carvajal APRN, DNP Unavailable [phone] Vignesh Pickens MD Primary Care Provider + [phone] Encounter Details Date Type Department Care Team (Late st Contact Info) Description 07/28/2022 Orders Only External Location [address] [place] [address] Gregg Morgan MD [address] [place] [address] Social History Tobacco Use Types [...] Description 05/16/2025 8:00 AM EDT Office Visit [facility] [place] [address] [address], [address] [place] [address] Karly Gracia MD [address] [place] [address] 06/07/2025 1:00 PM EDT Office Visit [facility] [address] [place] [address] Tom Iraheta MD [address] [place] [address] documented as of this encounter Procedures [...] documented as of this encounter Care Teams Optimization Engineer Relationship Specialty Start Date End Date Daniel Barba MD [address] [place] [address] PCP - General 01/02/21 12/30/24 Vignesh Pickens MD [address] [place] [address] PCP - General 12/31/24 Judy Huff, PASSENGER SERVICE SUPERVISOR [facility] TCM Nurse 08/24/24 08/24/24 Cayla Erazo APRN, DNP [address] [place] [address] Nurse Practitioner Urology 12/20/24 documented as of this encounter
--- OUTSIDE RECORDS SUMMARY | 2025-03-28 08:24 | XMS_ITS | Clinical Summary ---
Author Organization [facility] ([place], [place], [place], [place]) Address [address] [place] [address] Care Team Providers Care Band Tacker Name Role Phone [facility], Provider Not In The System MD [...] Do you speak a language other than Israeli at ho me? No 12/09/2023 Do you [...] A1C 11.7 % 11/25/2023 5:31 PM EDT [facility] Comment: Hemoglobin A1C levels are related to mean glucose during the preceding 2-3 months. Less than 7% demonstrates glycemic control in diabetic patients. Hemoglobin AlC % Suggested Diagnosis > or = 6.5 Diabetic 5.7 - 6.4 Prediabetic <5.7 Non-diabetic eAVG Glucose 289.09 mg/dL 11/25/2023 5:31 PM EDT [facility] Blood Venipuncture / Unknown 11/25/2023 11:24 AM EDT 11/25/2023 1:46 PM EDT us Radha Ram MD LAB BLOOD ORDERABLES Fi nal Result [facility] [address] [phone] from Last 3 Months or Most Recently Relevant to Health Maintenance Insurance [facility] [place] [id number] MEDICARE PART A B [place] Advance Directives For more information, please contact: [phone] * Full Code (Latest Code Status on [...] Name Relationship Healthcare Agent Relationshi p Communication [facility] Alternate Healthcare Decision-Maker Care Teams Band Tacker Relationship Specialty Start Date End Date [facility], Provider Not In The System, [place] [address] PCP - General 10/05/23
--- OUTSIDE RECORDS SUMMARY | 2025-03-28 08:25 | XMS_ITS | Encounter Summary ---
Author Organization [facility] Address [address] [place] [address] Care Team Providers Care Machine I Coremaker Name Role Phone Cayla Erazo APRN, DNP Unavailable [phone] Vignesh Pickens MD Primary Care Provider [phone] Encounter Details Date Type Department Care Team (Late st Contact Info) Description 03/27/2025 Telephone DC Clinic Urology [address], [address] [place] [address] Doug Chapman MD [address] [place] [address] Social History Tobacco Use Types [...] drink first t rodríguez in the morning (EYE-BRINE MIXER OPERATOR) to steady your nerves or to [...] encounter Miscellaneous Notes * Telephone Encounter - Kristi Munguia - 03/27/2025 3:20 PM EDT Clinical Concern/Question Reason for Call: LIZANDRO López from [facility] calling to let you know that patient is being admitted with UTI after failed treatment They did a CT scan in ER and it showed bilat hydronephrosis with thickening of urinary bladder/ with retroperitoneal adenopathy underlying neoplasm not excluded. Recommend cysto. Best contact number: Other: [phone] ext [phone] Optimal time of day to reach caller: ANYTIME Additional comments/information from caller: None Note: Please do not reply to this message. Follow-up communication and further actions as a result of this message need to be communicated with the patient directly, if the patient is not active on MyChart. If the patient is active on MyChart, they will receive notification of the communication/outcome via [employer]. documented in this encounter Plan of Treatment Upcoming Encounters Date Type Department Care Team (Late st Contact Info) Description 05/16/2025 8:00 AM EDT Office Visit [facility] [place] [address] [facility], [address] [place] [address] Karly Gracia MD [address] [place] [address] 06/07/2025 1:00 PM EDT Office Visit [facility] [address] [place] [address] Tom Iraheta MD [address] [place] [address] documented as of this encounter [...] as of this encounter Care Teams Machine I Coremaker Relationship Specialty Start Date End Date Vignesh Pickens MD [address] [place] [address] PCP - General 12/31/24 Cayla Erazo APRN, FREDERICK [address] [facility] [address] [place] [address] Nurse Practitioner Urology 12/20/24 documented as of this encounter
--- OUTSIDE RECORDS SUMMARY | 2025-03-28 08:26 | XMS_ITS | Encounter Summary ---
Author Organization [facility] Address [address] [place] [address] Care Team Providers Care Intern Architect Name Role Phone Cayla Erazo APRN, DNP Unavailable [phone] Vignesh Pickens MD Primary Care Provider [phone] Encounter Details Date Type Department Care Team [...] any time in the past 12 m [facility], were you homeless or living [...] drink first t rodríguez in the morning (EYE-RETAIL COMMISSION SALES ASSOCIATE) to steady your nerves or to [...] Description 05/16/2025 8:00 AM EDT Office Visit [facility] [place] [address] [facility] [facility], [address] [place] [address] Karly Gracia MD [address] [place] [address] 06/07/2025 1:00 PM EDT Office Visit [facility] [address] [place] [address] Tom Iraheta MD [address] [place] [address] documented as of this encounter [...] documented as of this encounter Care Teams Intern Architect Relationship Specialty Start Date End Date Vignesh Pickens MD [address] [place] [address] PCP - General 12/31/24 Cayla Erazo APRN, FREDERICK [address] [facility] [address] [place] [address] Nurse Practitioner Urology 12/20/24 documented as of this encounter
--- OUTSIDE RECORDS SUMMARY | 2025-03-28 08:28 | XMS_ITS | Encounter Summary ---
Author Organization [facility] Address [address] [place] [address] Care Team Providers Care Slitter Creaser Slotter Helper Name Role Phone Cayla Erazo APRN, DNP Unavailable [phone] Vignesh Pickens MD Primary Care Provider [phone] Encounter Details Date Type Department Care Team (Late st Contact Info) Description 02/22/2025 Orders Only External Location [address] [place] [address] Jordan Carl MD [address] [place] [address] Social History Tobacco Use Types [...] in the past 12 m [facility], were you homeless or living [...] drink first t rodríguez in the morning (EYE-STOPPER SETTER) to steady your nerves or to get [...] Month) No 02/26/2025 8:00 AM EDT Bassem Jay RN 2. Non-Specific Active Suici annie Thoughts (Past 1 Month) No 02/26/2025 8:00 AM EDT Harry Jay RN 6. Suicidal Behavior (Lifetime) No 8:00 AM EDT Bassem Jay RN documented as of this encounter Plan of Treatment Upcoming Encounters Date Type Department Care Team (Late st Contact Info) Description 05/16/2025 8:00 AM EDT Office Visit [facility] [place] [address] [facility], [address] [place] [address] Karly Gracia MD [address] [place] [address] 06/07/2025 1:00 PM EDT Office Visit [facility] [address] [place] [address] Tom Iraheta MD [address] [place] [address] documented as of this encounter [...] documented as of this encounter Care Teams Slitter Creaser Slotter Helper Relationship Specialty Start Date End Date Vignesh Pickens MD [address] [place] [address] PCP - General 12/31/24 Cayla Erazo APRN, FREDERICK [address] [facility] [address] [place] [address] Nurse Practitioner Urology 12/20/24 documented as of this encounter
--- OUTSIDE RECORDS SUMMARY | 2025-03-28 08:28 | XMS_ITS | Encounter Summary ---
Author Organization [facility] Address [address] [place] [address] Care Team Providers Care Senior Loan Officer Name Role Phone Cayla Erazo APRN, DNP Unavailable [phone] Vignesh Pickens MD Primary Care Provider [phone] Encounter Details Date Type Department Care Team (Late st Contact Info) Description 02/22/2025 Orders Only External Location [address] [place] [address] Jordan Carl MD [address] [place] [address] Social History Tobacco Use Types [...] drink first t rodríguez in the morning (EYE-BAILING MACHINE OPERATOR) to steady your nerves or to [...] Description 05/16/2025 8:00 AM EDT Office Visit [facility] [place] [address] [facility], [address] [place] [address] Karly Gracia MD [address] [place] [address] 06/07/2025 1:00 PM EDT Office Visit [facility] [address] [place] [address] Tom Iraheta MD [address] [place] [address] documented as of this encounter [...] as of this encounter Care Teams Senior Loan Officer Relationship Specialty Start Date End Date Vignesh Pickens MD [address] [place] [address] PCP - General 12/31/24 Cayla Erazo APRN, FREDERICK [address] [facility] [address] [place] [address] Nurse Practitioner Urology 12/20/24 documented as of this encounter
--- OUTSIDE RECORDS SUMMARY | 2025-03-28 08:28 | XMS_ITS | Encounter Summary ---
Author Organization [facility] Address [address] [place] [address] Care Team Providers Care Fruit Or Nut Farmworker Name Role Phone Cayla Erazo APRN, DNP Unavailable [phone] Vignesh Pickens MD Primary Care Provider [phone] Encounter Details Date Type Department Care Team (Late st Contact Info) Description 02/22/2025 Orders Only External Location [address] [place] [address] Jordan Carl MD [address] [place] [address] Social History Tobacco Use Types [...] any time in the past 12 m [facility], were you homeless or living [...] drink first t rodríguez in the morning (EYE-SULFONATOR OPERATOR) to steady your nerves or to [...] Description 05/16/2025 8:00 AM EDT Office Visit [facility] [place] [address] [facility], [address] [place] [address] Karly Gracia MD [address] [place] [address] 06/07/2025 1:00 PM EDT Office Visit [facility] [address] [place] [address] Tom Iraheta MD [address] [place] [address] documented as of this encounter [...] as of this encounter Care Teams Fruit Or Nut Farmworker Relationship Specialty Start Date End Date Vignesh Pickens MD [address] [place] [address] PCP - General 12/31/24 Cayla Erazo APRN, FREDERICK [address] [facility] [address] [place] [address] Nurse Practitioner Urology 12/20/24 documented as of this encounter
--- OUTSIDE RECORDS SUMMARY | 2025-03-28 08:28 | XMS_ITS | Encounter Summary ---
Author Organization [facility] Address [address] [place] [address] Care Team Providers Care Nurse Infection Control Name Role Phone Cayla Erazo APRN, DNP Unavailable [phone] Vignesh Pickens MD Primary Care Provider [phone] Encounter Details Date Type Department Care Team [...] first t rodríguez in the morning (EYE-RUG INSPECTOR) to steady your nerves or to [...] Description 05/16/2025 8:00 AM EDT Office Visit [facility] [place] [address] , [address] [place] [address] Karly Gracia MD [address] [place] [address] 06/07/2025 1:00 PM EDT Office Visit [facility] [address] [place] [address] Tom Iraheta MD [address] [place] [address] documented as of this [...] documented as of this encounter Care Teams Nurse Infection Control Relationship Specialty Start Date End Date Vignesh Pickens MD [address] [place] [address] PCP - General 12/31/24 Cayla Erazo APRN, DNP [address] [place] [address] Nurse Practitioner Urology 12/20/24 documented as of this encounter
--- OUTSIDE RECORDS SUMMARY | 2025-03-28 08:28 | XMS_ITS | Encounter Summary ---
Author Organization [facility] Address [address] [place] [address] Care Team Providers Care Senior Ssis Developer Name Role Phone Cayla Erazo APRN, DNP Unavailable [phone] Vignesh Pickens MD Primary Care Provider [phone] Encounter Details Date Type Department Care Team (Late st Contact Info) Description 02/22/2025 Orders Only External Location [address] [place] [address] Jordan Carl MD [address] [place] [address] Social History Tobacco Use Types [...] any time in the past 12 m [facility], were you homeless or living [...] drink first t rodríguez in the morning (EYE-VITICULTURE TEACHER) to steady your nerves or to [...] Description 05/16/2025 8:00 AM EDT Office Visit [facility] [place] [address] [facility], [address] [place] [address] Karly Gracia MD [address] [place] [address] 06/07/2025 1:00 PM EDT Office Visit [facility] [address] [place] [address] Tom Iraheta MD [address] [place] [address] documented as of this encounter [...] as of this encounter Care Teams Senior Ssis Developer Relationship Specialty Start Date End Date Vignesh Pickens MD [address] [place] [address] PCP - General 12/31/24 Cayla Erazo APRN, DNP [address] [facility] [address] [place] [address] Nurse Practitioner Urology 12/20/24 documented as of this encounter
--- OUTSIDE RECORDS SUMMARY | 2025-03-28 08:28 | XMS_ITS | Encounter Summary ---
Author Organization [facility] Address [address] [place] [address] Care Team Providers Care Parts Fabricator Name Role Phone Cayla Erazo APRN, DNP Unavailable [phone] Vignesh Pickens MD Primary Care Provider [phone] Encounter Details Date Type Department Care Team [...] drink first t rodríguez in the morning (EYE-THREAD INSPECTOR) to steady your nerves or to [...] Risk Indicated 02/24/2025 7:35 PM EDT Daniela Mcbride RN * Question Answer Date of Assessment Author 1. Wish to be (Past 1 Month) No 025 7:35 PM EDT Daniela Mcbride, JIMI 2. Non-Specific Active Suici annie Thoughts (Past 1 Month) No 02/24/2025 7:35 PM EDT Daniela Mcbride, JIMI 6. Suicidal Behavior (Lifetime) No 7:35 PM EDT Daniela Mcbride RN documented as of this encounter Plan of Treatment Upcoming Encounters Date Type Department Care Team (Late st Contact Info) Description 05/16/2025 8:00 AM EDT Office Visit [facility] [place] [address] [facility], [address] [place] [address] Karly Gracia MD [address] [place] [address] 06/07/2025 1:00 PM EDT Office Visit [facility] [address] [place] [address] Tom Iraheta MD [address] [place], [...] documented as of this encounter Care Teams Parts Fabricator Relationship Specialty Start Date End Date Vignesh Pickens MD [address] [place] [address] PCP - General 12/31/24 Cayla Erazo APRN, DNP [address] [address] Nurse Practitioner Urology 12/20/24 documented as of this encounter
--- OUTSIDE RECORDS SUMMARY | 2025-03-28 08:28 | XMS_ITS | Encounter Summary ---
Author Organization [facility] Address [address] [place] [address] Care Team Providers Care Manager Asset Name Role Phone Cayla Erazo APRN, FREDERICK Unavailable [phone] Vignesh Pickens MD Primary Care Provider [phone] Encounter Details Date Type Department Care Team (Late st Contact Info) Description 03/04/2025 Results Follow-Up [facility] Medicine Virtual Dept. [address] [place] [address] Madonna Singleton MD [address] [place] [address] Social History Tobacco Use Types Packs/Day Years [...] drink first t rodríguez in the morning (EYE-PUFF IRONER) to steady your nerves or to get [...] things Not at all 03/07/2025 10:14 AM EDShruthi Braun LPN Feeling down, depressed, or hopeless Not [...] Description 05/16/2025 8:00 AM EDT Office Visit [facility] [place] [address] [facility], [address] [place] [address] Karly Gracia MD [address] [place] [address] 06/07/2025 1:00 PM EDT Office Visit [facility] [address] [place] [address] Tom Iraheta MD [address] [place] [address] documented as of this encounter [...] as of this encounter Care Teams Manager Asset Relationship Specialty Start Date End Date Vignesh Pickens MD [address] [place] [address] PCP - General 12/31/24 Cayla Erazo APRN, FREDERICK [address] [facility] [address] [place] [address] Nurse Practitioner Urology 12/20/24 documented as of this encounter
--- OUTSIDE RECORDS SUMMARY | 2025-03-28 08:28 | XMS_ITS | Encounter Summary ---
Author Organization [facility] Address [address] [place] [address] Care Team Providers Care Sales Store Checker Name Role Phone Daniel Barba MD Primary Care Provider [phone] Cayla Erazo APRN, [facility] Unavailable [phone] Vignesh Pickens MD Primary Care Provider [phone] Encounter Details Date Type Department Care Team (Late st Contact Info) Description 10/19/2024 Orders Only External Location [address] [place] [address] Provider, External Social History Tobacco Use Types [...] any time in the past 12 m [facility], were you homeless or [...] drink first t rodríguez in the morning (EYE-GREEN JOBS TRAINER) to steady your nerves or to get [...] Encounters Date Type Department Care Team ([facility] st Contact Info) Description 05/16/2025 8:00 AM EDT Office Visit [facility] [place] [address] [facility], [address] [place] [address] Karly Gracia MD [address] [place] [address] 06/07/2025 1:00 PM EDT Office Visit [facility] [address] [facility] [address] [place] [address] Tom Iraheta MD [address] [place] [address] documented as of this encounter [...] as of this encounter Care Teams Sales Store Checker Relationship Specialty Start Date End Date Daniel Barba MD [address] [place] [address] PCP - General 01/02/21 12/30/24 Vignesh Pickens MD [address] [place] [address] PCP - General 12/31/24 Cayla Erazo APRN, DNP [address] [place] [address] Nurse Practitioner Urology 12/20/24 documented as of this encounter
--- OUTSIDE RECORDS SUMMARY | 2025-03-28 08:28 | XMS_ITS | Encounter Summary ---
Author Organization [facility] Address [address] [place] [address] Care Team Providers Care Seal Mixer Name Role Phone Cayla Erazo APRN, DNP Unavailable [phone] Vignesh Pickens MD Primary Care Provider [phone] Encounter Details Date Type Department Care Team [...] any time in the past 12 m [facility], were you homeless or living in [...] drink first t rodríguez in the morning (EYE-SHAKE OUT WORKER) to steady your nerves or to [...] Description 05/16/2025 8:00 AM EDT Office Visit [facility] [place] [address] [place] [address] Karly Gracia MD [address] [place] [address] 06/07/2025 1:00 PM EDT Office Visit [facility] [address] [place] [address] Tom Iraheta MD [address] [place] [address] documented as of this [...] documented as of this encounter Care Teams Seal Mixer Relationship Specialty Start Date End Date Vignesh Pickens MD [address] [place] [address] PCP - General 12/31/24 Cayla Erazo APRN, DNP [address] [place] [address] Nurse Practitioner Urology 12/20/24 documented as of this encounter
--- NOTE | 2025-03-28 08:29 | HMH.PHAINT1 ---
Pharmacy Intervention Comments: MEDICATION RECONCILIATION COMPLETED ON PATIENT USING EXTERNAL FILL HISTORY FROM PHARMACY. -CHERI STRINGER, DANIELD
--- OUTSIDE RECORDS SUMMARY | 2025-03-28 08:29 | XMS_ITS | Encounter Summary ---
Author Organization [facility] Address [address] [place] [address] Care Team Providers Care Knife Grinder Name Role Phone Cayla Erazo APRN, DNP Unavailable [phone] Vignesh Pickens MD Primary Care Provider [phone] Encounter Details Date Type Department Care Team (Late st Contact Info) Description 03/01/2025 Telephone [facility] [address] [address] Dental, Surgeon, [address] [place] [address] Social History Tobacco Use Types Packs/Day Years [...] drink first t rodríguez in the morning (EYE-SCREENING UNIT REGISTERED NURSE) to steady your nerves or [...] (Lifetime) No 8:00 AM EDT Gayle Light, JIMI documented as of this encounter Plan of Treatment Upcoming Encounters Date Type Department Care Team (Late st Contact Info) Description 05/16/2025 8:00 AM EDT Office Visit [facility] [place] [address] [facility], [address] [place] [address] Karly Gracia MD [address] [place] [address] 06/07/2025 1:00 PM EDT Office Visit [facility] [address] [place] [address] Tom Iraheta MD [address] [place] [address] documented as of this encounter [...] documented as of this encounter Care Teams Knife Grinder Relationship Specialty Start Date End Date Vignesh Pickens MD [address] [place] [address] PCP - General 12/31/24 Cayla Erazo APRN, FREDERICK [address] [facility] [address] [place] [address] Nurse Practitioner Urology 12/20/24 documented as of this encounter
--- OUTSIDE RECORDS SUMMARY | 2025-03-28 08:29 | XMS_ITS | Encounter Summary ---
Author Organization [facility] Address [address] [place] [address] Care Team Providers Care Wagon Driller Name Role Phone Cayla Erazo APRN, DNP Unavailable [phone] Vignesh Pickens MD Primary Care Provider [phone] Encounter Details Date Type Department Care Team [...] drink first t rodríguez in the morning (EYE-STRIPPER SHOVEL OPERATOR) to steady your nerves or to [...] Description 05/16/2025 8:00 AM EDT Office Visit [facility] [place] [address] [facility], [address] [place] [address] Karly Gracia MD [address] [place] [address] 06/07/2025 1:00 PM EDT Office Visit [facility] [address] [place] [address] Tom Iraheta MD [address] [place] [address] documented as of this [...] documented as of this encounter Care Teams Wagon Driller Relationship Specialty Start Date End Date Vignesh Pickens MD [address] [place] [address] PCP - General 12/31/24 Cayla Erzao APRN, DNP [address] [place] [address] Nurse Practitioner Urology 12/20/24 documented as of this encounter
--- NOTE | 2025-03-28 08:55 | P.PN_ITS ---
<Statement entered by Marques Cheng MD - 03/28/25 13:31> Rounded on patient after nurse practitioner. Personally examined and interviewed patient. Agree with exam findings and care plan as documented. Subjective *Date: 03/28/25 *Time: 09:16 Interval history: Patient lying in bed, arousable to name. Opens eyes to conversation but does not offer response. Parekh in place, receiving Invanz for UTI, culture pending. Vital signs stable, on 2 L nasal cannula 98%. Medical Exam Vital signs and Labs for Last 24 Hours: Vital Signs Temp Pulse Pulse Resp BP BP Pulse Ox 03/28/25 06:04 74 03/28/25 06:04 72 03/28/25 06:04 94 L 03/28/25 05:00 03/28/25 04:00 80 03/28/25 04:00 98.3 F 77 16 141/73 H 99 03/28/25 03:00 03/28/25 01:00 03/28/25 00:00 80 03/27/25 23:57 98.5 F 82 20 115/71 93 L 03/27/25 23:00 03/27/25 21:50 98.4 F 86 18 104/59 L 97 03/27/25 21:29 89 03/27/25 21:29 88 03/27/25 21:29 99 03/27/25 21:00 03/27/25 20:00 72 25 H 99 03/27/25 20:00 90 03/27/25 19:35 100.0 F H 87 16 100/58 L 99 03/27/25 18:44 98.6 F 03/27/25 18:42 03/27/25 18:05 100.1 F H 03/27/25 17:04 102.2 F H 03/27/25 17:00 03/27/25 16:30 109 H 22 127/60 96 03/27/25 16:30 103.2 F H 03/27/25 16:00 100 H 03/27/25 15:28 103 F H 112 H 20 138/47 L 03/27/25 15:15 111 H 98 03/27/25 15:09 03/27/25 15:00 110 H 138/41 L 99 03/27/25 14:30 107 H 132/52 L 99 03/27/25 14:08 105 H 147/47 H 93 L 03/27/25 13:03 106 H 147/84 H 96 03/27/25 13:02 106 H 144/78 H 98 03/27/25 12:01 91 H 109/69 L 03/27/25 11:45 98.9 F 102 H 20 117/73 95 03/27/25 11:27 49 L 117/73 71 L O2 Del Method O2 Flow Rate 03/28/25 06:04 03/28/25 06:04 03/28/25 06:04 Nasal Cannula 3 03/28/25 05:00 Nasal Cannula 3 03/28/25 04:00 03/28/25 04:00 Nasal Cannula 3 03/28/25 03:00 Nasal Cannula 3 03/28/25 01:00 Nasal Cannula 3 03/28/25 00:00 03/27/25 23:57 Nasal Cannula 3 03/27/25 23:00 Nasal Cannula 3 03/27/25 21:50 Nasal Cannula 3 03/27/25 21:29 03/27/25 21:29 03/27/25 21:29 Nasal Cannula 3 03/27/25 21:00 Nasal Cannula 3 03/27/25 20:00 Nasal Cannula 3 03/27/25 20:00 03/27/25 19:35 Nasal Cannula 3 03/27/25 18:44 03/27/25 18:42 Nasal Cannula 3 03/27/25 18:05 03/27/25 17:04 03/27/25 17:00 Nasal Cannula 3 03/27/25 16:30 Nasal Cannula 3 03/27/25 16:30 03/27/25 16:00 03/27/25 15:28 Nasal Cannula 3 03/27/25 15:15 03/27/25 15:09 Nasal Cannula 3 03/27/25 15:00 03/27/25 14:30 03/27/25 14:08 03/27/25 13:03 03/27/25 13:02 03/27/25 12:01 03/27/25 11:45 Nasal Cannula 3 03/27/25 11:27 Intake and Output 03/27/25 03/28/25 03/28/25 23:59 07:59 15:59 Intake Total 320 / 320 Output Total 1000 / 1000 550 / 550 Balance -680 / -680 -550 / -550 Intake: Intake, Oral Amount 320 / 320 Output: Output, Urine Amount 1000 / 1000 550 / 550 Other: Number of Unmeasured Voids 0 0 Weight 102.33 kg Patient Weight 03/28/25 23:59 Weight 102.33 kg Laboratory Results - last 24 hr 03/27/25 11:34: WBC 10.0, RBC 3.97 L, Hgb 10.3 L, Hct 34.5 L, MCV 86.9, MCH 25.9 L, MCHC 29.9 L, RDW 15.8, Plt Count 344, MPV 9.7, Neut % (Auto) 78.2, Lymph % (Auto) 9.1 L, [place] % (Auto) 9.7 H, Eos % (Auto) 2.4, Baso % (Auto) 0.3, Neut # (Auto) 7.8, Lymph # (Auto) 0.9, [place] # (Auto) 1.0, Eos # (Auto) 0.2, Baso # (Auto) 0.0, Sodium 136, Potassium 5.4 H, Chloride 96 L, Carbon Dioxide 31 H, Anion Gap 14.4, BUN 32 H, Creatinine 2.40 H, Estimated Creat Clear 33, Estimated GFR 20 L, Est GFR ( Amer) 25 L, Glucose 219 H, Lactate 3.2 H, Calcium 9.7, Magnesium 2.1, Total Bilirubin 0.2, AST 38 H, ALT 35, Alkaline Phosphatase 153 H, Troponin I 0.02, NT-Pro-B Natriuret Pep 1230 H, Total Protein 8.2, Albumin 4.2, Globulin 4.0 H, Albumin/Globulin Ratio 1.1, Lipase 131 03/27/25 11:43: VBG pH 7.25 L, VBG pCO2 66.9 H, VBG pO2 37.2, VBG HCO3 28.9, VBG Total CO2 31.0 H, VBG O2 Saturation 63.4, VBG Base Excess 1.8, VBG Lactic Acid 4.0 H 03/27/25 11:53: SARS-CoV-2 (PCR) Not detected, Influenza A Untype (PCR) Not detected, Influenza Type B (PCR) Not detected 03/27/25 12:25: Urine Opiates Screen Negative, Urine Methadone Screen Negative, Ur Barbituates Screen Negative, Ur Phencyclidine Scrn Negative, Ur Amphetamines Screen Negative, U Benzodiazepines Scrn Negative, Urine Cocaine Screen Negative, U Marijuana (THC) Screen Negative 03/27/25 12:30: Urine Color Yellow, Urine Appearance Clear, Urine pH 6.0, Ur S pecific [place] 1.020, Urine Protein 3+ A, Urine Glucose (UA) Negative, Urine Ketones Negative, Urine Blood 3+ A, Urine Nitrate Negative, Urine Bilirubin Negative, Urine Urobilinogen 0.2, Ur Leukocyte Esterase 3+ A, Urine RBC 20-50, Urine WBC Tntc, Ur Squamous Epith Cells None, Urine Bacteria None 03/27/25 15:00: Troponin I 0.03 03/27/25 16:43: POC Glucose 175 H 03/27/25 17:58: Lactate 1.5, Troponin I 0.04 H 03/27/25 20:13: POC Glucose 128 H 03/27/25 20:25: VBG pH 7.36, VBG pCO2 52.4 H, VBG pO2 55.0 H, VBG HCO3 29.1, VBG Total CO2 30.7 H, VBG O2 Saturation 85.7 H, VBG Base Excess 3.7 H, VBG Lactic Acid 1.5 03/27/25 20:30: Sodium 133 L, Potassium 4.9, Chloride 99, Carbon Dioxide 30, Anion Gap 8.9, BUN 35 H, Creatinine 2.20 H, Estimated Creat Clear 35, Estimated GFR 22 L, Est GFR ( Amer) 27 L, Glucose 114 H D, Lactate 0.9, Calcium 8.8, NT-Pro-B Natriuret Pep 1650 H 03/27/25 : Chlamy pneumoniae PCR Not detected, Adenovirus (PCR) Not detected, B. pertussis DNA (PCR) Not detected, Coronavirus OC43 (PCR) Not detected, Coronavirus HKU1 (PCR) Not detected, Coronavirus 229E (PCR) Not detected, SARS-CoV-2 (PCR) Not detected, Coronavirus NL63 (PCR) Not detected, Human Metapneumovir PCR Not detected, Influenza A (H1) PCR Not detected, Influ A (H1N1/09) PCR Not detected, Influenza A (H3) PCR Not detected, Influenza Type A (PCR) Not detected, Influenza Type B (PCR) Not detected, M. pneumoniae (PCR) Not detected, Parainfluenza 1 (PCR) Not detected, Parainfluenza 2 (PCR) Not detected, Parainfluenza 3 (PCR) Not detected, Parainfluenza 4 (PCR) Not detected, RSV (PCR) Not detected, Entero/Rhino (PCR) Not detected 03/28/25 02:24: POC Glucose 261 H 03/28/25 05:40: WBC 5.3 D, RBC 3.45 L, Hgb 9.0 L D, Hct 29.6 L, MCV 85.8, MCH 26.4 L, MCHC 30.7 L, RDW 15.9, Plt Count 239 D, MPV 9.6, Neut % (Auto) 90.0 H, Lymph % (Auto) 7.7 L, [place] % (Auto) 1.7, Eos % (Auto) 0.0 L, Baso % (Auto) 0.2, Neut # (Auto) 4.8, Lymph # (Auto) 0.4 L, [place] # (Auto) 0.1, Eos # (Auto) 0.0, Baso # (Auto) 0.0, Total Counted 100, Neutrophils % (Manual) 82 H, Band Neutrophils % 6, Lymphocytes % (Manual) 12, Platelet Estimate Not Reportable, RBC Morphology Not Reportable, Sodium 132 L, Potassium 5.8 H, Chloride 99, Carbon Dioxide 26, Anion Gap 12.8, BUN 41 H, Creatinine 2.20 H, Estimated Creat Clear 41, Estimated GFR 22 L, Est GFR ( Amer) 27 L, Glucose 300 H D, Calcium 8.7, Magnesium 2.0, Total Bilirubin 0.2, AST 30, ALT 29, Alkaline Phosphatase 124, Ammonia < 9 L, Total Protein 6.7, Albumin 3.5 D, Globulin 3.2, Albumin/Globulin Ratio 1.1 03/28/25 06:09: VBG pH 7.34, VBG pCO2 48.4, VBG pO2 63.1 H, VBG HCO3 25.4, VBG Total CO2 26.9, VBG Base Excess -0.3, VBG Lactic Acid 1.3 03/28/25 06:18: POC Glucose 341 H* I & O for Labs for Last 24 Hours: Intake & Output 03/25/25 03/26/25 03/27/25 03/28/25 23:59 23:59 23:59 23:59 Intake Total 320 / 320 Output Total 1000 / 1000 550 / 550 Balance -680 / -680 -550 / -550 Weight 85.729 kg 102.33 kg Constitutional: Present mild distress, obese, chronically ill appearing and somnolent Head: Present atraumatic Eyes: Present eye discharge ENT: Present normal exam Neck: Present normal inspection Respiratory: Present accessory muscle use, decreased breath sounds, distant breath sounds, able to speak in complete sentences and symmetric chest movement; Absent crackles Cardiac: Present Reg Rate and Rhythm; Absent No Murmur GI: Present soft and hypoactive bowel sounds; Absent distention or tenderness Rectal (female): Present deferred (female): Present deferred Extremities: Present normal inspection; Absent edema Comment:: Left BKA Skin: Present intact and dry; Absent wounds Neuro: Present Weakness; Absent alert Assessment and Plan *Assessment and plan (1) UTI (urinary tract infection): Status: Acute Category: Medical Code(s): N39.0 - Urinary tract infection, site not specified (2) Chronic kidney disease (CKD): Problem Comment: stage 3 Status: Acute Category: Medical Code(s): N18.9 - Chronic kidney disease, unspecified (3) Recurrent UTI: Status: Acute Category: Medical Code(s): N39.0 - Urinary tract infection, site not specified (4) Incontinent of urine: Status: Acute Category: Medical Code(s): R32 - Unspecified urinary incontinence (5) GERD (gastroesophageal reflux disease): Status: Acute Category: Medical Code(s): K21.9 - Gastro-esophageal reflux disease without esophagitis (6) Below knee amputation: Problem Comment: Left Status: Acute Category: Medical Code(s): S88.119A - Complete traumatic amputation at level between knee and ankle, unspecified lower leg, initial encounter (7) Diabetes mellitus: Status: Acute Qualifiers: Diabetes mellitus complication status: with other specified complication 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 Last cardiac cath, Aug 2022, with patent stents>medical management. Status: Acute Qualifiers: Associated angina: without angina Coronary Disease-Associated Artery/Lesion type: [place] artery [place] vs. 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 Status: Acute Qualifiers: CVA mechanism: other Qualified Code(s): I63.8 - Other cerebral infarction Category: Medical Code(s): I63.9 - Cerebral infarction, unspecified (11) Severe sepsis: Status: Acute Category: Medical Code(s): A41.9 - Sepsis, unspecified organism; R65.20 - Severe sepsis without septic shock Plan Ms. Tovar is a 64-year-old female with a primary medical history of chronic kidney disease stage III, recurrent urinary tract infection, CHF, COPD, diabetes mellitus type 2, insulin-dependent, left BKA, GERD, chronic pain, mood disorder, right mastectomy, urinary incontinence, CVA, CAD, heart cath with stent placement, hypertension, hyperlipidemia. She presented to the emergency department from [facility] with lethargy and recurrent urinary tract infection. She was recently admitted to our facility for recurrent urinary tract infection, treated with Invanz IM x 7 days. Patient appeared hemodynamically stable, normotensive. She did meet sepsis protocol tachycardia, febrile at 103?received 1 L LR and 1 g Tylenol in ED. On admission she is able to answer her birthday, her name, and where she is. When asked if she is confused she states now she is just tired. The emergency room physician contacted hospital medicine for admission and I agreed to accept the patient for further management of her recurrent urinary tract infection. Plan of care as follows: #CKD #Recurrent UTI #Urosepsis, severe ? Received sepsis bolus yesterday on admission. Oral rehydration today. ? Patient had a recent admission for recurrent UTI, early February was at , was admitted here the end of February for another recurrent UTI sensitive to Invanz. She completed a 7-day IM course of Invanz outpatient. Patient was brought to the emergency department today with complaints of altered mental status and lethargy. She was found to have a urinary tract infection, culture pending. Previous urine culture positive for E. coli ESBL, sensitive to Invanz. ? Patient's urine 3+ protein, 3+ blood, 3+ leuk esterase, WBC TNTC. Urine appears less purulent today. Parekh was placed in the emergency room. CT scan abdomen/pelvis impression: moderate bilateral hydroureteronephrosis with thickening of the urinary bladder wall and worsening retroperitoneal adenopathy. Patient sees Cayla Erazo APRN at urology. She had a cystoscopy on March 07, spoke with Dr. Hooks at he states that patient had cystoscopy in February, no biopsy. She does follow with urology for recurrent UTI. Plans to make an appointment in 1 to 2 weeks prior to discharge. ? No leukocytosis noted, 5.3, elevated potassium of 5.8. Patient appears to be at baseline kidney function BUN 41, creatinine 2.2. ? Continue to monitor for signs of infection, blood cultures show no growth after 24 hours, continuing to monitor. Ordered repeat in the a.m. ? Patient was recently hospitalized and intubated for pneumonia at , chest x- ray in the ED personally interpreted by myself shows no acute findings. ? Patient had event overnight where she was unarousable. VBG unremarkable, UDS negative, patient had fentanyl patch placed per assisted, it was removed at that time. Hold baclofen, trazodone, Percocet, Lyrica. ? Per patient's assisted MAR she has been receiving Narcan every morning due to altered mental status. #Anemia ? Patient has chronic anemia due to her CKD stage III, hemoglobin stable 9.0 today. Patient does take iron supplement 325 mg twice daily. #Urinary incontinence ? Patient takes Myrbetriq 50 mg daily for urinary incontinence, medication unavailable. ? Parekh catheter remains in place due to possible urinary obstruction. #Chronic pain ? Holding patient's chronic pain medications at this time due to altered mental status. #GERD ? Continue Protonix 20 mg daily. #BKA ? Patient is wheelchair-bound, per [facility] she can normally transfer from wheelchair to bed. PT/OT ordered for profound weakness. ? Patient found to have stage I sacral pressure wound on admission. Every 2 turns, Mepilex in place. Nystatin ordered 4 times daily. #Diabetes mellitus ? Patient is insulin-dependent diabetic. Currently takes Lantus 70 units twice daily and is on sliding scale at [facility]. Continue long-acting insulin at 45 units twice daily and sliding scale. ? ACHS fingersticks, high intensity SSI. ? A1c 11.4%, on 02/20/2025. #Hypertension #CAD #CVA ? Continue carvedilol 12.5 twice daily, Plavix 75 mg daily, hold atorvastatin 40 mg daily. Full code Diabetic diet PT OT evaluation VTE?Lovenox
[2025-03-28] MEDS: INSULIN GLARGINE 100 UNITS/ML 3ML FLEXPEN 45 UNIT SUBCUT (09:00)
--- NOTE | 2025-03-28 09:42 | SW/DCPLANNER ---
Addendum entered by Allyn Townsend 03/29/25 10:00: I have updated Angela w/ [facility] that patient will return today and will need 8 more days of IV Invanz. Angela is agreeable w/ discharge plan for this patient. Original Note: Patient currently resides at [facility] level of care. I will continue to follow up w/ Angela at [facility] until medically stable for discharge. Discharge date is unknown at this time.
[2025-03-28 11:21] LABS: POC Glucose,Bedside 348 (70-110)
[2025-03-28] MEDS: NYSTATIN TOPICAL POWDER 30GM TP ×3 (11:29→20:41)
--- NOTE | 2025-03-28 12:36 | PC.NURSE ---
new dressing applied to sacrum
[2025-03-28] MEDS: ERTAPENEM SODIUM 1 GM in 0.9 % SODIUM CHLORIDE 50 ML IV (15:56)
[2025-03-28 16:09] LABS: POC Glucose,Bedside 430 (70-110)
--- NOTE | 2025-03-28 16:10 | PC.NURSE ---
Addendum entered by Sheeba Leavitt RN 03/28/25 16:19: patient has been on 2LNC this shift and tolerating well, O2 sats above 90% Original Note: During morning rounds patient was very lethargic and was only responsive to name (at times) and light shaking.patient was unable to take PO morning meds at this time. Patient became more responsive around 1100 and was a/ox4. patient stated she is feeling better. she has rested on and off this shift. patient stated she was hot and a fan was provided along with removing blankets and adjusted room temp. patient temp at this time was 97.7 orally. patient is tolerating PO fluids well. garcía in place, urine is dark yellow and cloudy. nystatin powder applied to skin folds. patient has been Q2 turned. 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 VSS. no c/o pain or nausea. PT/OT evaluated patient this shift. no further requests at this time, call light within reach.
[2025-03-28] MEDS: ACETAMINOPHEN 325MG TAB 650 MG PO (18:06)
[2025-03-28 18:34] LABS: Adenovirus F 40/41, stool Not Detected (NotDetected); Clostridium Difficile A/B, PCR Not Detected (NotDetected); Cyclospora Cayetanesis Not Detected (NotDetected); Plesimonas Shigalloides, PCR Not Detected (NotDetected); Salmonella, PCR Not Detected (NotDetected); Shiga-like toxin E coli Not Detected (NotDetected); Shigella Enterovasive E coli Not Detected (NotDetected); Vibrio, PCR Not Detected (NotDetected); Yersinia Entercolitica, PCR Not Detected (NotDetected)
--- NOTE | 2025-03-28 18:42 | PC.NURSE ---
notified Hospitalist about patient having frequent loose BM, hospitalist ordered diarrhea panel. specimen sent to lab.
[2025-03-28 20:13] LABS: POC Glucose,Bedside 317 (70-110)
[2025-03-28] MEDS: PANTOPRAZOLE 40MG TABLET 40 MG PO (20:34)
[2025-03-28] MEDS: CARVEDILOL 12.5MG TABLET 12.5 MG PO (20:35)
[2025-03-28] MEDS: INSULIN GLARGINE 100 UNITS/ML 3ML FLEXPEN 70 UNIT SUBCUT (20:35)
[2025-03-28] MEDS: FERROUS SULFATE 325MG TABLET 325 MG PO (20:35)
[2025-03-28] MEDS: PREGABALIN 50MG CAPSULE 50 MG PO (20:57)
[2025-03-28] MEDS: PATIENT'S OWN HOME MEDICATION (Trazodone 150 mg tablet) 50 EACH PO (20:57)
[2025-03-29] VITALS (7 sets, daily range): BP systolic 107–133; BP diastolic 53–70; PULSE 70–89; RESP 18–20; TEMP 36.4–36.6; O2SAT 93–96; BMI 36.1
[2025-03-29 03:25] LABS: Acinetobacter calcoaceticus-ba Not Detected; Bacteroides fragilis Not Detected; Candida auris Not Detected; Candida glabrata Not Detected; Enterobacterales Not Detected; Enterococcus faecalis Not Detected; Enterococcus faecium Not Detected; Klebsiella aerogenes Not Detected; Klebsiella pneumoniae grp Not Detected; Proteus spp. Not Detected; Salmonella spp. Not Detected; Serratia marcescens Not Detected; Staphylococcus epidermidis Not Detected; Staphylococcus lugdunensis Not Detected; Staphylococcus spp. Detected; Stenotrophomonas maltophilia Not Detected; Streptococcus agalactiae(GrpB) Not Detected; Streptococcus pyogenes Group A Not Detected; Streptococcus spp. Not Detected
--- NOTE | 2025-03-29 03:48 | PC.NURSE ---
Chichi with the lab called to notify RN that patient has a positive blood culture on anaerobic. Its gram positive cocci in clusters and on pcr is staphylococcus spp. was notifed of the positive blood culture
[2025-03-29] MEDS: IPRATROPIUM/ALBUTEROL 3 ML NEB IH ×2 (05:59→11:27)
[2025-03-29 06:01] LABS: POC Glucose,Bedside 158 (70-110)
[2025-03-29 06:17] LABS: Hematocrit 25.7 % (37.0-47.0); Hemoglobin 7.9 g/dL (12.2-16.2); Immature Granulocytes % 0.4 %; Mean Corpuscular HGB Conc 30.7 g/dL (31.8-35.4); Mean Corpuscular Hemoglobin 25.8 pg (27.0-31.2); Mean Corpuscular Volume 84.0 fl (81-99); Nucleated Red Blood Cells % 0 %; Platelet Count 248 K/mm3 (142-424); Red Blood Count 3.06 M/mm3 (4.20-5.40); Red Cell Distribution Width-SD 48.5 fL; White Blood Count 5.5 K/mm3 (4.8-10.8)
[2025-03-29] MEDS: humaLOG 100 UNITS/ML 10ML VIAL (SSI) SUBCUT ×2 (06:21→12:17)
[2025-03-29 06:28] LABS: Albumin Level 3.4 g/dl (3.5-5.0); Chloride 98 mmol/L (98-107); Potassium 4.6 mmoL/L (3.5-5.1); Sodium 135 mmol/L (136-145)
[2025-03-29 06:31] LABS: Alanine Aminotransferase 25 U/L (12-78); Albumin/Globulin Ratio 1.1 (1.1-1.8); Alkaline Phosphatase 102 U/L (38-126); Anion Gap 13.6 mEq/L (5-15); Aspartate Amino Transferase 20 U/L (14-36); Bilirubin,Total 0.2 mg/dl (0.2-1.3); Blood Urea Nitrogen 37 mg/dl (7-17); Carbon Dioxide 28 mmol/L (22.0-30.0); Creatinine Clearance Estimated 48 mL/min (50-200); Creatinine,Serum 1.90 mg/dl (0.52-1.04); Estimated Glomerular Filt Rate 27 ml/min (>60); GFR (African American) 32 ML/MIN (>60); Globulin 3.2 g/dL (1.3-3.2); Total Protein,Serum 6.6 g/dl (6.3-8.2)
[2025-03-29 06:32] LABS: Calcium 8.6 mg/dl (8.4-10.2); Glucose 146 mg/dl (74-100)
[2025-03-29] MEDS: ACETAMINOPHEN 325MG TAB 650 MG PO ×2 (06:32→13:55)
[2025-03-29] MEDS: ONDANSETRON 4MG/2ML VIAL 4 MG IV (08:29)
[2025-03-29] MEDS: FERROUS SULFATE 325MG TABLET 325 MG PO (08:31)
[2025-03-29] MEDS: CARVEDILOL 12.5MG TABLET 12.5 MG PO (08:31)
[2025-03-29] MEDS: CLOPIDOGREL 75MG TAB 75 MG PO (08:31)
[2025-03-29] MEDS: INSULIN GLARGINE 100 UNITS/ML 3ML FLEXPEN 70 UNIT SUBCUT (08:32)
[2025-03-29] MEDS: NYSTATIN TOPICAL POWDER 30GM TP ×2 (08:32→12:18)
--- NOTE | 2025-03-29 08:38 | P.DS_ITS ---
<Statement entered by Marques Cheng MD - 03/29/25 12:18> Rounded on patient after nurse practitioner. Personally examined and interviewed patient. Agree with exam findings and care plan as documented. General Admission date:: 03/27/25 Discharge date: 03/29/25 HPI HPI HPI: Ms. Tovar is a 64-year-old female who presented to the emergency department today from [facility]. senior living staff reported patient was more lethargic and confused than normal. She was recently admitted to the hospital and discharged on Invanz IM x total 7 days for UTI culture showing E. coli and ESBL. Patient does follow with urology. Upon noted mission to the emergency department was found to have UTI, lethargy, tachycardia, and was febrile with a temperature of 103. Patient is able to tell me her name, birthday, where she is. But she is very lethargic. Patient admitted to the hospital for further management of UTI. Records pending from urology. Hospital Course Hospital Course Hospital Course: Ms. Tovar is a 64-year-old female with a primary medical history of chronic kidney disease stage III, recurrent urinary tract infection, CHF, COPD, diabetes mellitus type 2, insulin-dependent, left BKA, GERD, chronic pain, mood disorder, right mastectomy, urinary incontinence, CVA, CAD, heart cath with stent placement, hypertension, hyperlipidemia. She presented to the emergency department from [facility] with lethargy and recurrent urinary tract infection. She was recently admitted to our facility for recurrent urinary tract infection, treated with Invanz IM x 7 days. Patient appeared hemodynamically stable, normotensive. She did meet sepsis protocol tachycardia, febrile at 103?received 1 L LR and 1 g Tylenol in ED. On admission she is able to answer her birthday, her name, and where she is. When asked if she is confused she states now she is just tired. The emergency room physician contacted hospital medicine for admission and I agreed to accept the patient for further management of her recurrent urinary tract infection. Plan of care as follows: #CKD #Recurrent UTI #Urosepsis, severe ? On admission patient met sepsis criteria; received sepsis bolus and initiated on IV Invanz 1 g daily. She has responded well to antibiotic. Remains afebrile, normotensive. ?She had a recent admission for recurrent UTI, early February was at , was admitted here the end of February for another recurrent UTI sensitive to Invanz. She completed a 7-day IM course of Invanz outpatient. Patient was brought to the emergency department today with complaints of altered mental status and lethargy. She was found to have a urinary tract infection, culture shows no growth after 24 hours. Urine on admission was purulent, 3+ protein, 3+ blood, 3+ leuk esterase, WBC TNTC. Urine appears much improved, nonpurulent, yellow, without sediment. Previous urine culture positive for E. coli ESBL, sensitive to Invanz. ? Plans to continue Invanz at discharge for total course of 10 days. Will continue to follow urine culture. Patient has midline in place for IV infusions, midline may be discontinued after completion of antibiotics. ? Patient follows with [facility], spoke with Dr. Hooks. Plans to continue Parekh until urology follow-up. Patient has follow-up on , 04/04/2025 at 10:40 AM. ? CT scan abdomen/pelvis impression: moderate bilateral hydroureteronephrosis with thickening of the urinary bladder wall and worsening retroperitoneal adenopathy. ? No leukocytosis noted 5.5, potassium 4.6. Patient's kidney function improved to BUN 37, creatinine 1.9. ? 1 blood culture bottle preliminary results positive for Staphylococcus, possible contamination. Repeat cultures drawn. #Toxic metabolic encephalopathy ? On admission patient had altered mental status, arousable to sternal rubbing only. Suspect this could be related to polypharmacy versus infection. Medication adjustments made: discontinue fentanyl patch, decrease baclofen to 5 mg 3 times daily, decrease trazodone to 150 mg at bedtime. Patient has done well throughout admission, appears to be at baseline mentation, answering questions appropriately. ? Per patient's custodial MAR she has been receiving Narcan every morning due to altered mental status. #Anemia ? Patient has chronic anemia due to her CKD stage III, hemoglobin stable 7.2 today. Continue iron supplement 325 mg twice daily. Patient is asymptomatic. ? Follow-up CBC should be performed within 1 week. #Urinary incontinence ? Patient takes Myrbetriq 50 mg daily for urinary incontinence, continue at discharge. ? Parekh catheter remains in place due to possible urinary obstruction. This will be evaluated by urology at her follow-up appointment. #Chronic pain ? Resume baclofen 5 mg 3 times daily, Percocet 5/325 mg twice daily as needed, Lyrica 50 mg daily. ? Patient takes trazodone at bedtime, continue at 150 mg. - Fentanyl patch that she is prescribed at her nursing facility was not in place on patient when she arrived to the hospital and was evaluated thoroughly on skin exam at time of admission. Recommend holding at this time as she did not have it on. Reevaluate the necessity for continuous pain medication at her nursing facility given risk for oversedation and polypharmacy #GERD ? Continue Protonix 20 mg daily. #BKA ? Patient is wheelchair-bound, per [facility] she can normally transfer from wheelchair to bed. PT/OT ordered for profound weakness. ? Patient found to have stage I sacral pressure wound on admission. Every 2 turns, Mepilex in place. Nystatin ordered 4 times daily. #Diabetes mellitus ? Patient is insulin-dependent diabetic. Currently takes Lantus 70 units twice daily and is on sliding scale at [facility]. Increase Lantus to 80 units twice daily and continue sliding scale insulin. Recheck A1c in 2 months. ? A1c 11.4%, on 02/20/2025. #Hypertension #CAD #CVA ? Continue carvedilol 12.5 twice daily, Plavix 75 mg daily, hold atorvastatin 40 mg daily. Total time spent on discharge 39 minutes in counseling, documentation, chart review, and direct care with patient. Exam Data for Last 24 hours Vital signs and Labs for Last 24 Hours: Temp Pulse Resp BP Pulse Ox O2 Del Method O2 Flow Rate 97.5 F L 84 20 107/53 L 96 Nasal Cannula 2 03/29/25 06:31 03/29/25 05:59 03/29/25 04:00 03/29/25 04:00 03/29/25 05:59 03/29/25 06:58 03/29/25 06:58 Laboratory Results - last 24 hr 03/27/25 11:40: A. baumannii (PCR) Not detected, Bacteroides fragilis Not detected, Maira albicans (PCR) Not detected, Maira auris (PCR) Not detected, C. glabrata (PCR) Not detected, C. krusei (PCR) Not detected, C. parapsilosis (PCR) Not detected, C. tropicalis (PCR) Not detected, Cryptococcus neoformans PCR Not detected, Enterobacterales (PCR) Not detected, Enterococc faecalis PCR Not detected, Enterococc faecium PCR Not detected, E. coli (PCR) Not detected, H. influenzae DNA Not detected, Klebsiella aerogenes (PCR) Not detected, Klebsiella oxytoca PCR Not detected, K. pneumoniae group (PCR) Not detected, List. monocytogenes PCR Not detected, N. meningitidis (PCR) Not detected, Proteus species (PCR) Not detected, Salmonella spp. (PCR) Not detected, Serratia marcescens PCR Not detected, Staphylococcus sp PCR Detected, Staph aureus (PCR) Not detected, mecA/C & MREJ Resist Gene Not applicable, mecA/C-Methicil Resis Gene Not applicable, Staph epidermidis (PCR) Not detected, Staph lugdunensis (TEM-PCR) Not detected, S. maltophilia (PCR) Not detected, Streptococcus sp PCR Not detected, S.agalactiae Grp B KEILY Not detected, Strep pneumoniae (PCR) Not detected, S. pyogenes GrpA KEILY Not detected, P. aeruginosa (PCR) Not detected, Ralf/B-Vanco Res Genes Not applicable, blaIMP Car res Gene PCR Not applicable, KPC-Carbap Res Gene PCR Not applicable, blaNDM Car Res Gene PCR Not applicable, OXA-48 Carbapenem Resis Gene (PCR) Not applicable, blaVIM Car Res Gene PCR Not applicable, CTX-M Gene Resistance (PCR) Not applicable, MCR-1 Resistance Gene Not applicable 03/28/25 11:14: POC Glucose 348 H* 03/28/25 15:58: POC Glucose 430 H* 03/28/25 20:05: POC Glucose 317 H* 03/28/25 : Stl C. cayetanensis PCR Not detected, Stool Rotavirus (PCR) Not detected, Stl Adenov F 40/41 PCR Not detected, Stool Astrovirus (PCR) Not detected, Stool Campylobacter PCR Not detected, Stl C.difficile Tox PCR Not detected, Stool Cryptosporidium PCR Not detected, Stl E.coli Shiga Tox PCR Not detected, Stool E coli O157 PCR Not detected, Stl Enterotoxigenic E PCR Not detected, Stool EPEC (PCR) Not detected, Stool EAEC (PCR) Not detected, Stl E. histolytica PCR Not detected, Stool Giardia Lamblia PCR Not detected, Stool Salmonella PCR Not detected, Stool Sapovirus (PCR) Not detected, Stl P. shigelloides PCR Not detected, Stl Shigella/EIEC PCR Not detected, St Y.enterocolitica PCR Not detected, Stool Vibrio (PCR) Not detected, Stl Vibrio cholerae PCR Not detected, Stl Norovirus GI/GII PCR Not detected 03/29/25 05:50: POC Glucose 158 H 03/29/25 06:00: WBC 5.5, RBC 3.06 L, Hgb 7.9 L, Hct 25.7 L, MCV 84.0, MCH 25.8 L , MCHC 30.7 L, RDW 16.0, Plt Count 248, MPV 9.7, Neut % (Auto) 66.2, Lymph % (Auto) 21.6, [place] % (Auto) 10.7 H, Eos % (Auto) 0.9, Baso % (Auto) 0.2, Neut # (Auto) 3.7, Lymph # (Auto) 1.2, [place] # (Auto) 0.6, Eos # (Auto) 0.1, Baso # (Auto) 0.0, Sodium 135 L, Potassium 4.6 D, Chloride 98, Carbon Dioxide 28, Anion Gap 13.6, BUN 37 H, Creatinine 1.90 H, Estimated Creat Clear 48, Estimated GFR 27 L, Est GFR ( Amer) 32 L, Glucose 146 H, Calcium 8.6, Total Bilirubin 0.2, AST 20 D, ALT 25, Alkaline Phosphatase 102, Total Protein 6.6, Albumin 3.4 L, Globulin 3.2, Albumin/Globulin Ratio 1.1 I & O for Last 24 hours: Intake & Output 03/26/25 03/27/25 03/28/25 03/29/25 23:59 23:59 23:59 23:59 Intake Total 320 / 320 1909 / 2030 120 / 120 Output Total 1000 / 1000 1750 / 2475 1075 / 1075 Balance -680 / -680 160 / -445 -955 / -955 Weight 85.729 kg 102.33 kg 101.968 kg Microbiology Reports for the Last 24 Hours: Microbiology 03/27/25 12:30 Urine,Catheterized Urine Culture - Preliminary 03/27/25 11:34 Blood Blood Culture - Preliminary 03/27/25 12:03 Blood Blood Culture - Preliminary NO GROWTH AFTER 24 HOURS Constitutional Constitutional: no acute distress, chronically ill appearing and cooperative *Routine HEENT Exam Head: Present normocephalic Eye: Present EOMI ENT: Present mucous membranes moist *Routine Neck Exam Neck: Present supple *Routine Respiratory Exam Respiratory: Present CTA bilaterally, able to speak in complete sentences and symmetric chest movement; Absent wheezes *Routine Cardiovascular Exam Cardiovascular: Present RRR; Absent murmur *Routine Abdominal Exam Abdominal: Present soft and normoactive bowel sounds *Routine Extremities Exam Extremities: Absent edema *Routine Skin Exam Skin: Present intact and dry; Absent rash *Routine Neurological Exam Neurological: Present alert, oriented X3, vision grossly intact, hearing grossly intact and normal speech Results Data Completed and Pending Labs on day of discharge: Labs from last 24 hours 03/29/25 03/29/25 03/28/25 06:00 05:50 Unknown WBC 5.5 RBC 3.06 L Hgb 7.9 L Hct 25.7 L MCV 84.0 MCH 25.8 L MCHC 30.7 L RDW 16.0 Plt Count 248 MPV 9.7 Neut % (Auto) 66.2 Lymph % (Auto) 21.6 [place] % (Auto) 10.7 H Eos % (Auto) 0.9 Baso % (Auto) 0.2 Neut # (Auto) 3.7 Lymph # (Auto) 1.2 [place] # (Auto) 0.6 Eos # (Auto) 0.1 Baso # (Auto) 0.0 Sodium 135 L Potassium 4.6 D Chloride 98 Carbon Dioxide 28 Anion Gap 13.6 BUN 37 H Creatinine 1.90 H Estimated Creat Clear 48 Estimated GFR 27 L Est GFR ( Amer) 32 L Glucose 146 H POC Glucose 158 H Calcium 8.6 Total Bilirubin 0.2 AST 20 D ALT 25 Alkaline Phosphatase 102 Total Protein 6.6 Albumin 3.4 L Globulin 3.2 Albumin/Globulin Ratio 1.1 Stl C. cayetanensis PCR Not detected Stool Rotavirus (PCR) Not detected Stl Adenov F 40/41 PCR Not detected Stool Astrovirus (PCR) Not detected Stool Campylobacter PCR Not detected Stl C.difficile Tox PCR Not detected Stool Cryptosporidium PCR Not detected Stl E.coli Shiga Tox PCR Not detected Stool E coli O157 PCR Not detected Stl Enterotoxigenic E PCR Not detected Stool EPEC (PCR) Not detected Stool EAEC (PCR) Not detected Stl E. histolytica PCR Not detected Stool Giardia Lamblia PCR Not detected Stool Salmonella PCR Not detected Stool Sapovirus (PCR) Not detected Stl P. shigelloides PCR Not detected Stl Shigella/EIEC PCR Not detected St Y.enterocolitica PCR Not detected Stool Vibrio (PCR) Not detected Stl Vibrio cholerae PCR Not detected Stl Norovirus GI/GII PCR Not detected A. baumannii (PCR) Bacteroides fragilis Maira albicans (PCR) Maira auris (PCR) C. glabrata (PCR) C. krusei (PCR) C. parapsilosis (PCR) C. tropicalis (PCR) Cryptococcus neoformans PCR Enterobacterales (PCR) Enterococc faecalis PCR Enterococc faecium PCR E. coli (PCR) H. influenzae DNA Klebsiella aerogenes (PCR) Klebsiella oxytoca PCR K. pneumoniae group (PCR) List. monocytogenes PCR N. meningitidis (PCR) Proteus species (PCR) Salmonella spp. (PCR) Serratia marcescens PCR Staphylococcus sp PCR Staph aureus (PCR) mecA/C & MREJ Resist Gene mecA/C-Methicil Resis Gene Staph epidermidis (PCR) Staph lugdunensis (TEM-PCR) S. maltophilia (PCR) Streptococcus sp PCR S.agalactiae Grp B KEILY Strep pneumoniae (PCR) S. pyogenes GrpA KEILY P. aeruginosa (PCR) Ralf/B-Vanco Res Genes blaIMP Car res Gene PCR KPC-Carbap Res Gene PCR blaNDM Car Res Gene PCR OXA-48 Carbapenem Resis Gene (PCR) blaVIM Car Res Gene PCR CTX-M Gene Resistance (PCR) MCR-1 Resistance Gene 03/28/25 03/28/25 03/28/25 20:05 15:58 11:14 WBC RBC Hgb Hct MCV MCH MCHC RDW Plt Count MPV Neut % (Auto) Lymph % (Auto) [place] % (Auto) Eos % (Auto) Baso % (Auto) Neut # (Auto) Lymph # (Auto) [place] # (Auto) Eos # (Auto) Baso # (Auto) Sodium Potassium Chloride Carbon Dioxide Anion Gap BUN Creatinine Estimated Creat Clear Estimated GFR Est GFR ( Amer) Glucose POC Glucose 317 H* 430 H* 348 H* Calcium Total Bilirubin AST ALT Alkaline Phosphatase Total Protein Albumin Globulin Albumin/Globulin Ratio Stl C. cayetanensis PCR Stool Rotavirus (PCR) Stl Adenov F 40/41 PCR Stool Astrovirus (PCR) Stool Campylobacter PCR Stl C.difficile Tox PCR Stool Cryptosporidium PCR Stl E.coli Shiga Tox PCR Stool E coli O157 PCR Stl Enterotoxigenic E PCR Stool EPEC (PCR) Stool EAEC (PCR) Stl E. histolytica PCR Stool Giardia Lamblia PCR Stool Salmonella PCR Stool Sapovirus (PCR) Stl P. shigelloides PCR Stl Shigella/EIEC PCR St Y.enterocolitica PCR Stool Vibrio (PCR) Stl Vibrio cholerae PCR Stl Norovirus GI/GII PCR A. baumannii (PCR) Bacteroides fragilis Maira albicans (PCR) Maira auris (PCR) C. glabrata (PCR) C. krusei (PCR) C. parapsilosis (PCR) C. tropicalis (PCR) Cryptococcus neoformans PCR Enterobacterales (PCR) Enterococc faecalis PCR Enterococc faecium PCR E. coli (PCR) H. influenzae DNA Klebsiella aerogenes (PCR) Klebsiella oxytoca PCR K. pneumoniae group (PCR) List. monocytogenes PCR N. meningitidis (PCR) Proteus species (PCR) Salmonella spp. (PCR) Serratia marcescens PCR Staphylococcus sp PCR Staph aureus (PCR) mecA/C & MREJ Resist Gene mecA/C-Methicil Resis Gene Staph epidermidis (PCR) Staph lugdunensis (TEM-PCR) S. maltophilia (PCR) Streptococcus sp PCR S.agalactiae Grp B KEILY Strep pneumoniae (PCR) S. pyogenes GrpA KEILY P. aeruginosa (PCR) Ralf/B-Vanco Res Genes blaIMP Car res Gene PCR KPC-Carbap Res Gene PCR blaNDM Car Res Gene PCR OXA-48 Carbapenem Resis Gene (PCR) blaVIM Car Res Gene PCR CTX-M Gene Resistance (PCR) MCR-1 Resistance Gene 03/27/25 11:40 WBC RBC Hgb Hct MCV MCH MCHC RDW Plt Count MPV Neut % (Auto) Lymph % (Auto) [place] % (Auto) Eos % (Auto) Baso % (Auto) Neut # (Auto) Lymph # (Auto) [place] # (Auto) Eos # (Auto) Baso # (Auto) Sodium Potassium Chloride Carbon Dioxide Anion Gap BUN Creatinine Estimated Creat Clear Estimated GFR Est GFR ( Amer) Glucose POC Glucose Calcium Total Bilirubin AST ALT Alkaline Phosphatase Total Protein Albumin Globulin Albumin/Globulin Ratio Stl C. cayetanensis PCR Stool Rotavirus (PCR) Stl Adenov F 40/41 PCR Stool Astrovirus (PCR) Stool Campylobacter PCR Stl C.difficile Tox PCR Stool Cryptosporidium PCR Stl E.coli Shiga Tox PCR Stool E coli O157 PCR Stl Enterotoxigenic E PCR Stool EPEC (PCR) Stool EAEC (PCR) Stl E. histolytica PCR Stool Giardia Lamblia PCR Stool Salmonella PCR Stool Sapovirus (PCR) Stl P. shigelloides PCR Stl Shigella/EIEC PCR St Y.enterocolitica PCR Stool Vibrio (PCR) Stl Vibrio cholerae PCR Stl Norovirus GI/GII PCR A. baumannii (PCR) Not detected Bacteroides fragilis Not detected Maira albicans (PCR) Not detected Maiar auris (PCR) Not detected C. glabrata (PCR) Not detected C. krusei (PCR) Not detected C. parapsilosis (PCR) Not detected C. tropicalis (PCR) Not detected Cryptococcus neoformans PCR Not detected Enterobacterales (PCR) Not detected Enterococc faecalis PCR Not detected Enterococc faecium PCR Not detected E. coli (PCR) Not detected H. influenzae DNA Not detected Klebsiella aerogenes (PCR) Not detected Klebsiella oxytoca PCR Not detected K. pneumoniae group (PCR) Not detected List. monocytogenes PCR Not detected N. meningitidis (PCR) Not detected Proteus species (PCR) Not detected Salmonella spp. (PCR) Not detected Serratia marcescens PCR Not detected Staphylococcus sp PCR Detected Staph aureus (PCR) Not detected mecA/C & MREJ Resist Gene Not applicable mecA/C-Methicil Resis Gene Not applicable Staph epidermidis (PCR) Not detected Staph lugdunensis (TEM-PCR) Not detected S. maltophilia (PCR) Not detected Streptococcus sp PCR Not detected S.agalactiae Grp B KEILY Not detected Strep pneumoniae (PCR) Not detected S. pyogenes GrpA KEILY Not detected P. aeruginosa (PCR) Not detected Ralf/B-Vanco Res Genes Not applicable blaIMP Car res Gene PCR Not applicable KPC-Carbap Res Gene PCR Not applicable blaNDM Car Res Gene PCR Not applicable OXA-48 Carbapenem Resis Gene (PCR) Not applicable blaVIM Car Res Gene PCR Not applicable CTX-M Gene Resistance (PCR) Not applicable MCR-1 Resistance Gene Not applicable Preliminary micro results at discharge 03/27/25 12:30 Urine Culture - Preliminary Urine,Catheterized 03/27/25 11:34 Blood Culture - Preliminary Blood 03/27/25 12:03 Blood Culture - Preliminary Blood NO GROWTH AFTER 24 HOURS DS: Diagnosis Discharge Diagnosis (1) UTI (urinary tract infection): Status: Acute Code(s): N39.0 - Urinary tract infection, site not specified (2) Chronic kidney disease (CKD): Status: Acute Code(s): N18.9 - Chronic kidney disease, unspecified Problem details: stage 3 (3) Recurrent UTI: Status: Acute Code(s): N39.0 - Urinary tract infection, site not specified (4) Incontinent of urine: Status: Acute Code(s): R32 - Unspecified urinary incontinence (5) GERD (gastroesophageal reflux disease): Status: Acute Code(s): K21.9 - Gastro-esophageal reflux disease without esophagitis (6) Below knee amputation: Status: Acute Code(s): S88.119A - Complete traumatic amputation at level between knee and ankle, unspecified lower leg, initial encounter Problem details: Left (7) Diabetes mellitus: Status: Acute Code(s): E11.9 - Type 2 diabetes mellitus without complications Qualifiers: Diabetes mellitus complication status: with other specified complication Diabetes mellitus retirement insulin use: unspecified manager long term care insulin use status Diabetes mellitus type: other specified (including VICTOR[place]) Qualified Code(s): E13.69 - Other specified diabetes mellitus with other specified complication (8) Hypertension: Status: Acute Code(s): I10 - Essential (primary) hypertension Qualifiers: Hypertension type: primary hypertension Qualified Code(s): I10 - Essential (primary) hypertension (9) CAD (coronary artery disease): Status: Acute Code(s): I25.10 - Atherosclerotic heart disease of [place] coronary artery without angina pectoris Qualifiers: Associated angina: without angina Coronary Disease-Associated Artery/Lesion type: [place] artery [place] vs. transplanted heart: [place] heart Qualified Code(s): I25.10 - Atherosclerotic heart disease of [place] coronary artery without angina pectoris Problem details: PCI/CLIFF 2017. Last cardiac cath, Aug 2022, with patent stents>medical management. 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 (11) Severe sepsis: Status: Acute Code(s): A41.9 - Sepsis, unspecified organism; R65.20 - Severe sepsis without septic shock (12) Toxic metabolic encephalopathy: Status: Acute Code(s): G92.8 - Other toxic encephalopathy Meds Home Medications and Allergies Home Medications ?Medication ?Instructions ?Recorded ?Confirmed ?Type acetaminophen 500 mg tablet 500 mg PO Q6HP PRN Mild Pa in 02/28/18 03/27/25 History (Scale Score 1-4) anastrozole 1 mg tablet 1 mg PO DAILY 02/28/1803/27 History atorvastatin 40 mg tablet 40 mg PO DAILY 02/28/1802/13 History carvedilol 12.5 mg tablet 12.5 mg PO BID 02/28/1802/13 History loperamide 2 mg capsule 2 mg PO Q4HP PRN Diarrhea 03/27/25 History pantoprazole 20 mg tablet,delayed 20 mg PO DAILY 04/1103/27/25 History release (Protonix) clopidogrel 75 mg tablet 75 mg PO DAILY 02/04/2002/13 History multivitamin with minerals 1 each PO DAILY Supplement 05/06/21 03/27/25 History ondansetron 4 mg disintegrating 4 mg PO Q6HP PRN Nause a And 07/28/22 03/27/25 History tablet Vomiting azelastine 137 mcg (0.1 %) nasal 2 spray intranasal BI D allergy 09/13/23 03/27/25 Rx spray symptoms #30 mL cholecalciferol (vitamin D3) 25 25 mcg PO BID 10/04/23 03/27/25 History mcg (1,000 unit) tablet (Vitamin D3) cyanocobalamin (vitamin B-12) 1,000 mcg PO DAILY 10/0403/27/25 History 1,000 mcg tablet (Vitamin B-12) fluticasone furoate 100 1 inh inhalation DAILY 10/0403/27/25 History mcg-vilanterol 25 mcg/dose inhalation powder (Breo Ellipta) fluticasone propionate 50 1 spray intranasal BID 10/0403/27/25 History mcg/actuation nasal spray,suspension magnesium oxide 400 mg PO BID 10/04/2303/27 History ascorbic acid (vitamin C) 500 mg 500 mg PO BID 4 03/27/25 History tablet (Vitamin C) calcitriol 0.25 mcg capsule 0.25 mcg PO DAILY 03/19/24 03/27/25 History dextromethorphan-guaifenesin 10 10 ml PO Q4HP PRN Coug h 07/24/24 03/28/25 History mg-100 mg/5 mL oral liquid (Guaiasorb DM) ferrous sulfate 325 mg (65 mg 325 mg PO BID 10/02/24 0 03/27/25 History iron) tablet (iron) oxycodone-acetaminophen 5 mg-325 1 tab PO BID PRN Pain (Scale Score 01/16/25 03/27/25 Rx mg tablet (Percocet) 7-10) #60 tabs d-mannose 500 mg capsule (AZO 2,000 mg PO DAILY 03/27/25 History D-Mannose) insulin aspart U-100 100 unit/mL 1 sliding scale dose SQ 02/19/25 03/27/25 History (3 mL) subcutaneous pen USEASDIRECTD mirabegron 50 mg tablet,extended 50 mg PO DAILY 03/27/25 History release 24 hr (Myrbetriq) trospium 20 mg tablet 20 mg PO BID 02/19/25 History fluvoxamine 25 mg tablet 25 mg PO HS 03/13/25 5 History estradiol 0.01% (0.1 mg/gram) 1 g vaginal DIRECTED 03/27/25 03/28/25 History vaginal cream pregabalin 50 mg capsule 50 mg PO DAILY 03/27/2503/15 History naloxone 4 mg/actuation nasal spray 4 mg intranasal NEEDED PRN 03/28/25 03/28/25 History Opioid Reversal baclofen 10 mg tablet 5 mg (1/2 x 10 mg) PO TID 30 days 03/29/25 03/27/25 Rx #0 tabs insulin glargine 100 unit/mL (3 80 unit (0.8 mL) SQ BI D 30 days #0 03/29/25 03/27/25 Rx mL) subcutaneous pen (Basaglar mL KwikPen U-100 Insulin) trazodone 150 mg tablet 150 mg PO HS 30 days #0 tabs 03/29/25 03/27/25 Rx New Prescriptions to Start Prescriptions: Allergies Allergy/AdvReac Type Severity Reaction Status Date / Time adhesive tape Allergy Unknown Unknown Verified 03/27/25 13:55 allergy reaction bupropion (From WELLBUTRIN) Allergy Unknown Unknown Verified 03/27/25 13:55 allergy reaction hydrocodone (From LORTAB) Allergy Unknown Unknown Verified 03/27/25 13:55 allergy reaction Sulfa (Sulfonamide Allergy Unknown Unknown Verified 03/27/25 13:55 Antibiotics) (SULFA allergy (SULFONAMIDE ANTIBIOTICS)) reaction tramadol (From ULTRAM) Allergy Unknown Unknown Verified 03/27/25 13:55 allergy reaction Discharge Plan Disposition Patient Disposition: [facility] Condition: Fair Discharge Order Discharge Orders: Discharge Order (Routine); Ordered 03/29/25 Ordered By: Mariana López Follow up Plan Follow up with: [facility] [Provider Group, Urology] - 04/04/25 10:40 am Prescriptions/Medication Reconciliation: Continued acetaminophen 500 mg tablet 500 mg PO Q6HP PRN (Reason: Mild Pain (Scale Score 1-4)) anastrozole 1 mg tablet 1 mg PO DAILY atorvastatin 40 mg tablet 40 mg PO DAILY carvedilol 12.5 mg tablet 12.5 mg PO BID calcitriol 0.25 mcg capsule 0.25 mcg PO DAILY dextromethorphan-guaifenesin [Guaiasorb DM] 10-100 mg/5 mL liquid 10 ml PO Q4HP PRN (Reason: Cough) AZO D-Mannose 500 mg capsule 2,000 mg PO DAILY insulin aspart U-100 100 unit/mL (3 mL) insulin pen 1 sliding scale dose SQ USEASDIRECTD Rx Instructions: AT 1130 AND 1630 trospium 20 mg tablet 20 mg PO BID Rx Instructions: administer on an empty stomach mirabegron [Myrbetriq] 50 mg tablet extended release 24 hr 50 mg PO DAILY loperamide 2 mg capsule 2 mg PO Q4HP PRN (Reason: Diarrhea) pantoprazole [Protonix] 20 mg tablet,delayed release (DR/EC) 20 mg PO DAILY azelastine 137 mcg (0.1 %) aerosol,spray 2 spray intranasal BID Qty: 30 3RF Rx Instructions: administer into each nostril ascorbic acid (vitamin C) [Vitamin C] 500 mg tablet 500 mg PO BID oxycodone-acetaminophen [Percocet] 5-325 mg tablet 1 tab PO BID PRN (Reason: Pain (Scale Score 7-10)) Qty: 60 0RF clopidogrel 75 MG tablet 75 mg PO DAILY multivitamin with minerals 1 EACH tablet 1 each PO DAILY estradiol 0.01 % (0.1 mg/gram) cream 1 g vaginal DIRECTED Rx Instructions: 1 g vaginally THREE TIMES A WEEK pregabalin 50 mg capsule 50 mg PO DAILY naloxone 4 mg/actuation [place],Non-Aerosol 4 mg INTRANASAL NEEDED PRN (Reason: Opioid Reversal) Rx Instructions: spray 1 dose into ONE nostril; alternate nostrils w each dose until help arrives ondansetron 4 mg Tablet,Disintegrating 4 mg PO Q6HP PRN (Reason: Nausea And Vomiting) ferrous sulfate [iron] 325 mg (65 mg iron) tablet 325 mg PO BID cyanocobalamin (vitamin B-12) [Vitamin B-12] 1,000 mcg Tablet 1,000 mcg PO DAILY fluticasone propionate 50 mcg/actuation [place],Suspension 1 spray INTRANASAL BID Rx Instructions: administer into each nostril cholecalciferol (vitamin D3) [Vitamin D3] 25 mcg (1,000 unit) Tablet 25 mcg PO BID fluticasone furoate-vilanterol [Breo Ellipta] 100-25 mcg/dose Blister With Device 1 inh INHALATION DAILY magnesium oxide 400 mg magnesium Tablet 400 mg PO BID fluvoxamine 25 mg tablet 25 mg PO HS Changed trazodone 150 mg tablet 150 mg PO HS 30 Days Qty: 0 0RF insulin glargine [Basaglar KwikPen U-100 Insulin] 100 unit/mL (3 mL) insulin pen 80 unit SQ BID 30 Days Qty: 0 0RF baclofen 10 mg tablet 5 mg PO TID 30 Days Qty: 0 0RF Discontinued fentanyl 12 mcg/hr patch 72 hour 1 patch transdermal Q72H Qty: 10 0RF Problem Reconciliation Problems Reviewed?: Yes Patient Discharge Instructions ACTIVITY: Continue current activity DIET: continue same diet and diabetic diet Additional Instructions: Parekh catheter to stay in place until urology follow-up. Patient to receive IV Invanz 1 g daily for total of 10 days, 7 more days after discharge. midline may be removed when antibiotic course is complete. Patient Instructions: DI for Urinary Tract Infection (UTI), DI for Sepsis -- Adult, Catheter-Associated Urinary Tract Infection, Stop Light Heart Failure, Stop Light Infection Print Language: Serbian Providers Primary Care Provider: Provider,Referral Admit Provider: Marques Cheng Attending Provider: Marques Cheng
[2025-03-29 08:46] LABS: POC Glucose,Bedside 248 (70-110)
--- NOTE | 2025-03-29 10:00 | HMH.OTEV ---
OT Inpatient Evaluation Rehab OT IP Evaluation Start: 03/27/25 16:22 Freq: ONCE Status: Active Protocol: Document 03/29/25 09:54 [facility] (Rec: 03/29/25 10:00 [id number] Rehab OT IP Assessment Subjective History Pt oriented x 2 on arrival. Pt admitted on 03/27/25 due to sepsis and UTI. History and physical: Ms. Tovar is a 64-year-old female who presented to the emergency department today from [facility]. [facility] staff reported patient was more lethargic and confused than normal. She was recently admitted to the hospital and discharged on Invanz IM x total 7 days for UTI culture showing E. coli and ESBL. Patient does follow with urology. Upon noted mission to the emergency department was found to have UTI, lethargy, tachycardia, and was febrile with a temperature of 103. Patient is able to tell me her name, birthday, where she is. But she is very lethargic. Patient admitted to the hospital for further management of UTI. Records pending from urology Subjective Prior to being in the hospital, pt was at [place] receiving skilled therapy. Pt reports prior to being in the hospital, she required assistance with dressing and bathing; she was able to feed herself independently . Pt was transferred to and from her wheelchair with a mechanical lift. Pt also required assistance with bed mobility to go from supine to sitting at eob. Objective Patient Orientation Person,Birthday Bed Mobility bed mobility-scooting,bed mobility - supine/sit Assist Level Maximum x 2 (75% assist) Rehab OT IP prob,goals,plan Problems Date of Evaluation: 03/29/25 OT IP Problems Bed Mobility,Transfers,Balance,Self care,Safety Rehab Potential Rehab Potential Good Equipment Needs Assistive Devices Rolling / Wheeled Walker,Wheelchair Plan OT intervention Plan Bed Mobility,Transfers,Balance,Self care,Safety, Therapeutic Exercise OT Plan Frequency Daily Duration LOS Discharge Goals Bed Mobility Ability Assistance x1 Sit to Stand Chair Maximum x 1 (75% assist) Transfer Ability Chair Transfer Maximum x 1 (75% assist) Ability Chair Transfer Mechanical Lift Technique Lower Body Dressing Moderate Assistance Ability Upper Body Dressing Minimal Assistance Ability Performing Toilet Moderate Assistance Hygiene Ability Discharge Plan OT Discharge Plan Pt will continue to be seen for OT services while at [facility]. Therapist recommends pt return to [place] for continued skilled therapy once she is medically stable per physician. Continued skilled therapy is important in order for patient to improve strength, safety, endurance, ADL independence, and functional transfers to reach PLOF. Eval Complexity Eval Charge Codes 79069 - Moderate Complexity PHYSICIAN CERTIFICATION: I certify the specified therapy services for Eileen Tovar are required, authorized, and reviewed every 30 days.
--- NOTE | 2025-03-29 10:18 | HMH.PTEV ---
Physical Therapy Evaluation Rehab PT IP Evaluation Start: 03/27/25 16:22 Freq: ONCE Status: Active Protocol: Document 03/29/25 09:00 TIFFANIE (Rec: 03/29/25 10:18 TIFFANIE [id number]) Subjective/History History History 64-year-old female who presented to the emergency department today from [facility]. [facility] staff reported patient was more lethargic and confused than normal. She was recently admitted to the hospital and discharged on Invanz IM x total 7 days for UTI culture showing E. coli and ESBL. Patient does follow with urology. Upon noted mission to the emergency department was found to have UTI, lethargy, tachycardia, and was febrile with a temperature of 103. Patient is able to tell me her name, birthday, where she is. But she is very lethargic. Patient admitted to the hospital for further management of UTI. Records pending from urology. Pt currently receiving rehab services at a local SNF and requires assist for all mobility at baseline. Subjective Subjective Pt reports she feels tired this am and reluctantly agrees to mobility assessment. [facility] How much help from another person do you currently need... Turning from your A lot back to your side while in a flat bed without using bedrails? Moving from lying on A lot back to sitting on the side of a flat bed without using bedrails? Moving to and from a Total bed to a chair ( including a wheelchair)? Standing up from a Total chair using your arms? (e.g., wheelchair, bedside chair) Walking in hospital Total room? Climbing 3-5 steps Total with a railing? Mobility Score 8 Mobility Level [facility] Mobility 3 Sit at edge of bed Mobility Calculator Rehab PT IP Eval Objective Appearance Patient Behavior Appropriate Patient Orientation Person Difficulty following none instructions Speech Pattern Clear Ambulation Patient Able to No Ambulate Balance Ability to Arise Able, uses arms to help Sitting Balance Leans or slides in chair Transfers Bed Transfer Ability Maximum x 2 (75% assist) Chair Transfer Total/Dependent (100%) Ability Sit to Stand Bed Total/Dependent (100%) Transfer Ability Sit to Stand Chair Total/Dependent (100%) Transfer Ability Rehab PT IP prob,goals,plan Problems Date of Evaluation: 03/29/25 Discharge Plan PT Discharge Plan Pt is currently most appropriate to return to SNF for rehab placement once medically stable for d/c. Eval Complexity Eval Charge Codes 79756 - High Complexity PHYSICIAN CERTIFICATION: I certify the specified therapy services for Eileen Jh Tovar are required, authorized, and reviewed every 30 days.
[2025-03-29 11:37] LABS: POC Glucose,Bedside 325 (70-110)
[2025-03-29] MEDS: ERTAPENEM SODIUM 1 GM in 0.9 % SODIUM CHLORIDE 50 ML IV (12:24)
[2025-03-29 16:54] LABS: POC Glucose,Bedside 204 (70-110)
== END 2025-03-29 14:57 | DRG 871 ==
LOC: ER 12:33 → 2ND 15:09
PROVIDERS: Physician Assistant; Student in an Organized Health Care Education/Training Program; Admitting Provider Internal Medicine Adolescent Medicine; Emergency Provider Student in an Organized Health Care Education/Training Program; Visit Provider Internal Medicine Adolescent Medicine
DX: A41.9 Sepsis, unspecified organism (principal); G92.8 Other toxic encephalopathy; I13.0 Hypertensive heart and chronic kidney disease with heart failure and stage 1 through stage 4 chronic kidney disease, or unspecified chronic kidney disease; N13.6 Pyonephrosis; I69.354 Hemiplegia and hemiparesis following cerebral infarction affecting left non-dominant side; I50.22 Chronic systolic (congestive) heart failure; N17.9 Acute kidney failure, unspecified; E87.29 Other acidosis; R65.20 Severe sepsis without septic shock; D63.1 Anemia in chronic kidney disease; L89.151 Pressure ulcer of sacral region, stage 1; E87.5 Hyperkalemia; K21.9 Gastro-esophageal reflux disease without esophagitis; I25.10 Atherosclerotic heart disease of native coronary artery without angina pectoris; J44.9 Chronic obstructive pulmonary disease, unspecified; E11.22 Type 2 diabetes mellitus with diabetic chronic kidney disease; N18.32 Chronic kidney disease, stage 3b; F32.9 Major depressive disorder, single episode, unspecified; E78.5 Hyperlipidemia, unspecified; G89.29 Other chronic pain; R32 Unspecified urinary incontinence; R59.0 Localized enlarged lymph nodes; R06.89 Other abnormalities of breathing; Z95.5 Presence of coronary angioplasty implant and graft; Z95.828 Presence of other vascular implants and grafts; Z89.512 Acquired absence of left leg below knee; Z87.440 Personal history of urinary (tract) infections; Z87.891 Personal history of nicotine dependence; Z79.4 Long term (current) use of insulin; Z79.02 Long term (current) use of antithrombotics/antiplatelets; Z79.899 Other long term (current) drug therapy; Z91.048 Other nonmedicinal substance allergy status; Z88.5 Allergy status to narcotic agent; Z88.2 Allergy status to sulfonamides; Z88.8 Allergy status to other drugs, medicaments and biological substances
CPT/HCPCS: 36410; 36415; 51702; 51798; 70450; 71045; 71275; 74177; 80048; 80053; 80307; 81001; 82140; 82803; 82962; 83605; 83690; 83735; 83880; 84484; 85007; 85025; 87040; 87077; 87086; 87154; 87507; 87633; 87636; 93005; 94640; 94760; 94761; 97163; 97166; C1751; J0696; J1335; J1650; J2405; J2919; J7120; Q9967

== ENCOUNTER 2025-03-31 17:01 | Outpatient (CLI) | payer MEDICARE, MEDICAID, SELFPAY ==
--- OUTSIDE RECORDS SUMMARY | 2017-02-21 10:50 | XMS_ITS | Continuity of Care Document ---
Author Organization [address] [place] [address] Address [address] [facility] [address] [place] [address] Phone Care Team Providers Care Desk Maker Name Role Phone SkAndrei ivey DPM Unavailable Unavailable Procedures Procedure Date DEBRIDEMENT OF NAIL(S) BY ANY METHOD(S); OR MORE DEBRIDEMENT OF NAIL(S) BY ANY METHOD(S); OR MORE DEBRIDEMENT OF NAIL(S) BY ANY METHOD(S); 6 OR MORE Advance Directives Directive Yes / No Effective Date File Name No Information Encounters Encounter Description Practice Location Reason(s) For Visit Diagnoses Date Provider Providers Copied on Encounter [facility], [address] [place] [address], [id number], tel:[phone] [facility] Tinea unguiumType 1 diabetes mellitus with hyperglycemia Pain in right toe(s)Pain in left toe(s) 7 Gomez Forbes. [address] [facility], [address] [place] [address], [id number], [place]. tel:[phone] [facility], [address] [facility] 300, [place], [place], [id number], tel:[phone] [facility] Nail Pain (chief complaint) Tinea unguiumPain in right toe(s)Pain in left toe(s) 7 Gomez Forbes. [address] [facility], [facility] 300, [place], [place], [id number], [place]. tel:[phone] [place] [address], [address] [facility], [place], [place], [id number], tel:[phone] [facility] Nail Pain (chief complaint) Tinea unguiumPain in right toe(s)Pain in left toe(s)Type 1 diabetes mellitus with hyperglycemia 7 Gomez Andrei. [address] [facility], [address], [place], [place], [id number], . tel:[phone] Family History Family Member Type Diagnosis Age At Onset No Information Payers Payer name Insurance type Covered green party ID Authoriza tion(s) Medicare [facility] [id number] Medicaid [facility] [id number] Social History Type Description Quantity Date Captured [...]
--- OUTSIDE RECORDS SUMMARY | 2025-01-31 08:03 | XMS_ITS | Encounter Summary ---
Author Organization [facility] Address [address] [place] [address] Care Team Providers Care Assistant Bookkeeper Name Role Phone Cayla Erazo APRN, DNP Unavailable [phone] Vignesh Pickens MD Primary Care Provider [phone] Reason for Visit * Auth/Cert (Routine) Specialty Diagnoses / Procedures Referred By Contac t Referred To Contact Diagnoses Gross hematuria Gross hematuria Procedures CA CYSTO/URETERO/PYELOSC,BX &/OR FULG LESN URETEROSCOPY, WITH BIOPSY POSSIBLE STENT PLACEMENTS Ceci Mitchell MD [address] [address] Phone: tel: fax: [facility] [address] [place] [address] Phone: tel: Referral ID Status Reason Start Date Expiration Date Visits Re quested Visits Authorized [id number] 1 1 Encounter Details Date Type Department Care Team (Latest Contact Info) Description 01/31/2025 8:03 AM EDT - 01/31/2025 1:39 PM EDT Hospital Encounter [facility] [address] [place] [phone] Ceci Mitchell MD [address] [address] Urinary retention (Primary Dx); Gross [...] drink first t rodríguez in the morning (EYE-RAILWAY TRACTION LINE WORKER) to steady your nerves or to get rid of a hangover? 0 08/15/2024 CAGE Questionnaire Score 0 024 Utilities Answer Date Recorded In the past 12 months has e [employer], gas, oil, or water company threatened to [...] confirm your location ahead of your appointment) [facility] Urology Department Clinic at [facility] [address] [facility], [address]nd [facility], [facility], [address] [place] [address] Clinic After Hours [facility] Office Building Urology Clinic [facility] [address] [place] [address] Clinic After Hours documented in this encounter [...] POSTOPERATIVE DIAGNOSIS: Same SURGEON: Ceci Mitchell MD RAIL WASHER SURGEON(S): Gerry Cullen DO, Doug Lunyd MD INTRAOPERATIVE FINDINGS: - The bladder was [...] the start of the case. A 19 Guamanian rigid cystoscope was introduced into the patient's [...] of the renal pelvis. We advanced a Darien catheter over our sensor wire and performed [...] leave stents bilaterally with strings. Used 7 Guamanian by 24 cm double-J stents on strings. These were placed without difficulty and intraoperative fluoroscopy was used to confirm appropriate positioning with the proximal curls in the renal pelvises bilaterally in the distal curls in the bladder. An 18 Guamanian García catheter was placed at the conclusion [...] Cullen DO PGY-3, Department of Urology Pager: [phone] Cosigned by Ceci Mitchell MD at 01/31/2025 [...] (cerebral infarction) COPD (chronic obstructive pulmonary disease) ([facility]) Depression Fibromyalgia History of falling [...] BREAST SURGERY N/A Breast Surgery Reconstruction from [employer] BREAST SURGERY N/A Breast Surgery from [employer] CHOLECYSTECTOMY N/A Cholecystotomy from [employer] KIDNEY SURGERY N/A Kidney Surgery from [employer] KNEE SURGERY N/A Knee Surgery from [employer] MASTECTOMY N/A Breast Surgery Mastectomy from [employer] SHOULDER SURGERY Right Shoulder Surgery Right from [employer] [3] No medications prior to admission. [4] Allergies Allergen Reactions Sulfa Drugs Anaphylaxis Ultram [Tramadol] Swelling lips swell Hydrocodone Unknown - Patient states they do not know rxn details [facility] is unaware of what reaction. Pedi-Pre Tape [place] [Wound Dressing Adhesive] Rash Wellbutrin [Bupropion] [...] Care Team (Late st Contact Info) Description 04/04/2025 10:40 AM EDT Office Visit [facility] [address], [address] [place] [address] Eugenia Jimenez, BRIDGE REPAIR CREW PERSON [address] [place] [address] 05/16/2025 8:00 AM EDT Office Visit [facility] [place] [address], [address] [place] [address] Karly Gracia MD [address] [place] [address] 06/07/2025 1:00 PM EDT Office Visit [facility] [address] [place] [address] Tom Iraheta MD [address] [place] [address] documented as of this encounter Procedures Procedure Name Priority Date/Time Associated Diagnosis Comments POCT GLUCOSE METER UNSOLICITED RESULTS Routine 01/31/2025 11:39 AM EDT [place] LESS THAN 1 HOUR (NON-REPORTABLE) Routine 01/31/2025 11:14 AM EDT FUNGAL CULTURE, ROUTINE Routine 01/31/2025 10:23 AM EDT Gross hematuria URINE CULTURE Routine 01/31/2025 10:22 AM EDT Gross hematuria CA CYSTO/URETERO/PYELOS C,BX &/OR FULG LESN 01/31/2025 9:32 AM EDT Gross hematuria POCT GLUCOSE METER UNSOLICITED RESULTS Routine 01/31/2025 8:47 AM EDT documented in this encounter Results * (ABNORMAL) POCT glucose meter (01/31/2025 11:39 AM EDT) POCT Glucose 135(H) 74 - 99 mg/dL 01/31/2025 11:41 AM EDT [facility] Comment:Accuracy of a glucos e result [...] Comment 01/31/2025 11:41 AM EDT [facility] [employer] Cake Decorator ID Abbey Medina 01/31/2025 11:41 AM EDT [facility] Device ID [id number] 01/31/2025 11:41 AM EDT [facility] Specimen Type POC Capillary 01/31/2025 11:41 AM EDT [facility] Blood Capillary blood specimen / Unknown 01/31/2025 11:39 AM EDT 01/31/2025 11:41 AM EDT Ceci Mitchell MD LAB POINT OF CARE TE ST DOCKED DEVICE UNSOLICITED RESULTS Final Result Performing Organization Address City/[facility]/ZIP Co de Phone Number [facility] [address] [place] [address] * [place] Less than 1 Hour Intraoperative (01/31/2025 11:14 AM EDT) Narrative IMAGING - 01/31/2025 11:15 AM EDT Images were obtained for surgical purposes. See Ceci Mitchell's surgical note in the patient's chart for the findings. Ceci Mitchell MD IMG FLUOROSCOPY PROCEDURES F inal Result Performing Organization Address City/[facility] Co de Phone Number IMAGING * (ABNORMAL) Fungal Culture, Routine (01/31/2025 10:23 AM EDT) Culture Confluent Growth Maira glabrata(A) 02/08/2025 11:50 AM EDT [facility] Urine Urinary bladder structure / Unknown 01/31/2025 10:23 AM EDT 01/31/2025 11:38 AM EDT Comment:Pre-op diagnosis: Gross hematuria us Ceci Mitchell MD LAB MICROBIOLOGY - GENERAL O RDERABLES Final Result Performing Organization Address City/[facility]/ZIP Co de Phone Number [facility] [address] [place] [address] * Urine Culture (01/31/2025 10:22 AM EDT) Culture No growth at day 1 02/01/2025 8:02 AM EDT [facility] Urine Urinary bladder structure / Unknown 01/31/2025 10:22 AM EDT 01/31/2025 11:38 AM EDT Comment:Pre-op diagnosis: Gross hematuria Ceci Mitchell MD LAB MICROBIOLOGY - GENERAL O RDERABLES Final Result [facility] [address] [place] [address] * (ABNORMAL) POCT glucose meter (01/31/2025 8:47 [...] Comment 01/31/2025 8:49 AM EDT [facility]ALTH[facility] [employer] Cake Decorator ID hKai Jamison 02/01/20 8:49 AM EDT HEALTHCARE LAB Device ID [id number] 01/31/2025 8:49 AM EDT [facility] Specimen Type POC Capillary 01/31/2025 8:49 AM EDT [facility] Blood Capillary blood specimen / Unknown 01/31/2025 8:47 AM EDT 01/31/2025 8:49 AM EDT us Ceci Mitchell MD LAB POINT OF CARE TE ST DOCKED DEVICE UNSOLICITED RESULTS Final Result [facility] [address] [place] [address] documented in this encounter Visit Diagnoses Diagnosis [...] on Hermelinda 01/31/25 at 1102, Until Hermelinda 625 at 1539, Routine, Recovery (Phase I only), respiratory depression ondansetron (Zofran) injection 4 mg 4 mg, Intravenous, Once as needed, 1 dose, Starting on Hermelinda 01/31/25 at 1102, Until Hermelinda 625 at 1539, [...] on Hermelinda 01/31/25 at 1102, Until Hermelinda 25 at 1539, Routine, Recovery (Phase I only), [...] on Hermelinda 01/31/25 at 1102, Until Hermelinda 25 at 1539, Routine, Recovery (Phase I only), [...] documented as of this encounter Care Teams Assistant Bookkeeper Relationship Specialty Start Date End Date Vignesh Pickens MD [address] [place] [address] PCP - General 12/31/24 Cayla Erazo APRN, FREDERICK [address] [place] [address] Nurse Practitioner Urology 12/20/24 documented as of this encounter
--- OUTSIDE RECORDS SUMMARY | 2025-01-31 08:55 | XMS_ITS | Encounter Summary ---
Author Organization Healthcare Address [address] [place] [address] Care Team Providers Care Acrobatic Rigger Name Role Phone Cayla Erazo APRN, DNP Unavailable [phone] Vignesh Pickens MD Primary Care Provider [phone] Reason for Visit * Auth/Cert (Routine) Specialty Diagnoses / Procedures Referred By Contelvie t Referred To Contact Diagnoses Gross hematuria Gross hematuria Procedures [place] CYSTO/URETERO/PYELOSC,BX &/OR FULG LESN URETEROSCOPY, WITH BIOPSY POSSIBLE STENT PLACEMENTS Ceci Mitchell MD [address] [address] Phone: tel: fax: [facility] [address] [place] [address] Phone: tel: Referral ID Status Reason Start Date Expiration Date Visits Re quested Visits Authorized [id number] 1 1 Encounter Details Date Type Department Care Team (Late st Contact Info) Description 01/31/2025 8:55 AM EDT - 01/31/2025 10:10 AM EDT Surgery [facility] [address] [place] [address] Ceci Mitchell MD [address] [address] URETEROSCOPY,CYSTOSCOP Y, RETROGRADE PYELOGRAM, BILATERAL STENT PLACEMENT [85572 (CPT )] Surgery Details Date/Time Status Location OR Service Patient Class Case Class Case Type Trauma Case? 01/31/2025 8:55 AM Posted ELMO [facility] E-Electiv e Panel 1 Procedure [...] drink first t rodríguez in the morning (EYE-CEMENT BOAT AND BARGE LOADER) to steady your nerves or to get [...] 1 Month) No 025 8:50 AM Jovita oWod, RN 2. Non-Specific Active Suici annie Thoughts [...] confirm your location ahead of your appointment) [facility] Clinic at [facility] [address], [address]nd Floor, Wing [address], [address] [place] [address] Clinic After Hours [facility] Medical Office Building Urology Clinic [address] [place] [address] Clinic After Hours documented in this encounter [...] POSTOPERATIVE DIAGNOSIS: Same SURGEON: Ceci Mitchell MD ACADEMIC AFFAIRS COORDINATOR SURGEON(S): Gerry Cullen DO, Doug Lundy [...] of the renal pelvis. We advanced a [place] catheter over our sensor wire and performed [...] the orifice with the assistance of a Ortho Kinematicsenstein catheter, and advanced a wire up to [...] Cullen DO PGY-3, Department of Urology Pager: [phone] Cosigned by Ceci Mitchell MD at 01/31/2025 [...] BREAST SURGERY N/A Breast Surgery Reconstruction from [employer] BREAST SURGERY N/A Breast Surgery from [employer] CHOLECYSTECTOMY N/A Cholecystotomy from [employer] KIDNEY SURGERY N/A Kidney Surgery from [employer] KNEE SURGERY N/A Knee Surgery from [employer] MASTECTOMY N/A Breast Surgery Mastectomy from [employer] SHOULDER SURGERY Right Shoulder Surgery Right from [employer] [3] No medications prior to admission. [4] Allergies Allergen Reactions Sulfa Drugs Anaphylaxis Ultram [Tramadol] Swelling lips swell Hydrocodone Unknown - Patient states they do not know rxn details [facility] is unaware of what reaction. Pedi-Pre Tape [place] [Wound Dressing Adhesive] Rash Wellbutrin [Bupropion] Rash [...] Description 04/04/2025 10:40 AM EDT Office Visit [facility] [address], [address]nd [place] [address] Eugenia Jimenez, GAMER [address] [place] [address] 05/16/2025 8:00 AM EDT Office Visit [facility] [place] [address] [facility] [address] [facility], [address] [place] [address] Karly Gracia MD [address] [place] [address] 06/07/2025 1:00 PM EDT Office Visit [facility] [address] [place] [address] Tom Iraheta MD [address] [place] [address] documented as of this encounter [...] Comment 01/31/2025 11:41 AM EDT [facility]ALTHCARE LAB Commodity Lead ID Abbey Medina 01/31/2025 11:41 AM EDT HEALTHCARE LAB Device ID [id number] 01/31/2025 11:41 AM EDT [facility]ALTHCARE LAB Specimen Type POC Capillary 01/31/2025 11:41 AM EDT [facility] Blood Capillary blood specimen / Unknown 01/31/2025 11:39 AM EDT 01/31/2025 11:41 AM EDT Ceci Mitchell MD LAB POINT OF CARE TE ST DOCKED DEVICE UNSOLICITED RESULTS Final Result Performing Organization Address City/[facility] Co de Phone Number HEALTHCARE LAB [address] [place] [address] * [place] Less than 1 Hour Intraoperative [...] Growth Maira glabrata(A) 02/08/2025 11:50 AM EDT [facility] Urine Urinary bladder structure / Unknown 01/31/2025 10:23 AM EDT 01/31/2025 11:38 AM EDT Comment:Pre-op diagnosis: Gross hematuria us Ceci Mitchell MD LAB MICROBIOLOGY - GENERAL O RDERABLES Final Result Performing Organization Address [facility] [place] [address] * Urine Culture (01/31/2025 10:22 AM EDT) Culture No growth at day 1 02/01/2025 8:02 AM EDT [facility] Urine Urinary bladder structure / Unknown 01/31/2025 10:22 AM EDT 01/31/2025 11:38 AM EDT Comment:Pre-op diagnosis: Gross hematuria Ceci Mitchell MD LAB MICROBIOLOGY - GENERAL O RDERABLES Final Result Performing Organization Address [facility] Phone Number [facility] [address] [place] [address] * (ABNORMAL) POCT glucose meter (01/31/2025 8:47 [...] 01/31/2025 8:49 AM EDT [facility] Commodity Lead ID Khai Jamison 02/01/20 8:49 AM EDT [facility] Device ID [id number] 01/31/2025 8:49 AM EDT HEALTHCARE LAB Specimen Type POC Capillary 01/31/2025 8:49 AM EDT [facility]ALTH[facility]ARE LAB Blood Capillary blood specimen / Unknown 01/31/2025 8:47 AM EDT 01/31/2025 8:49 AM EDT us Ceci Mitchell MD LAB POINT OF CARE TE ST DOCKED DEVICE UNSOLICITED RESULTS Final Result [facility]ARE LAB [address] [place] [address] documented in this encounter Visit Diagnoses Diagnosis [...] on Hermelinda 625 at 1102, Until Hermelinda 01/31/25 at 1539, [...] mg, Intravenous, As needed, Starting on Hermelinda 25 at 1102, Until Hermelinda 01/31/25 at 1539, Routine, Recovery (Phase I only), respiratory depression ondansetron (Zofran) injection 4 mg 4 mg, Intravenous, Once as needed, 1 dose, Starting on Hermelinda 25 at 1102, Until Hermelinda 01/31/25 at 1539, Routine, Recovery (Phase I only), nausea, vomiting oxyCODONE (Roxicodone) immediate release tablet 10 mg(Linked Group 1) 10 mg, Oral, Once as needed, 2 doses, Starting on Hermelinda 25 at 1102, Until Hermelinda 25 at 1539, Routine, Recovery (Phase I only), pain score of 6-8 out of 10 oxyCODONE (Roxicodone) immediate release tablet 5 mg(Linked Group 1) 5 mg, Oral, Once as needed, 2 doses, Starting on Hermelinda 25 at 1102, Until Hermelinda 25 at 1539, [...] documented as of this encounter Care Teams Acrobatic Rigger Relationship Specialty Start Date End Date Vignesh Pickens MD [address] [place] [address] PCP - General 12/31/24 Cayla Erazo APRN, DNP [address] [facility] [address] [place] [address] Nurse Practitioner Urology 12/20/24 documented as of this encounter
--- OUTSIDE RECORDS SUMMARY | 2025-01-31 09:48 | XMS_ITS | Encounter Summary ---
Author Organization Healthcare Address [address] [place] [address] Care Team Providers Care Fruit Culler Name Role Phone Cayla Erazo APRN, FREDERICK Unavailable [phone] Vignesh Pickens MD Primary Care Provider [phone] Reason for Visit * Auth/Cert (Routine) Specialty Diagnoses / Procedures Referred By Clara stoner Referred To Contact Diagnoses Gross hematuria Gross hematuria Procedures SC CYSTO/URETERO/PYELOSC,BX &/OR FULG LESN URETEROSCOPY, WITH BIOPSY POSSIBLE STENT PLACEMENTS Ceci Mitchell MD [address] [facility] [address] [place] [address] Phone: tel: fax: [facility]PERATING ROOM [address] [place] [address] Phone: tel: Referral ID Status Reason Start Date Expiration Date Visits Re quested Visits Authorized [id number] 1 1 Encounter Details Date Type Department Care Team (Late st Contact Info) Description 01/31/2025 9:48 AM EDT Anesthesia Event [facility] RO[facility] [address] [place] [address] Nj Sears MD [address] [place] [address] Anesthesia Record Procedure Summary Procedure [...] Hand; Site Prep: Chlorhexidine ; Local Anesth: [place]; Technique: Anatomical landmarks; Inserted by: james orosco [...] No change to dentition. ; Placed by: FORMSTONE FITTER; Removal Date: 01/31/25; Removal Time: 1122 01/31/25 [...] first t rodríguez in the morning (EYE-ASSISTANT PROFESSOR SCULPTURE) to steady your nerves or to get rid of a hangover? 0 08/15/2024 CAGE Questionnaire Score 0 024 Utilities Answer Date Recorded In the past 12 months has e [employer], gas, oil, or water [employer] threatened to shut off services in your [...] and Staff Patient location during procedure: OR FORMSTONE FITTER: Migue Seay CRNA Performed: FORMSTONE FITTER Patient Condition Indications for airway management: anesthesia [...] WITH BIOPSY POSSIBLE STENT PLACEMENTS (Bilateral) Location: [address] / [place] Surgeons: Ceci Mitchell MD Department of [...] were no vitals filed for this visit. [place] body weight: 54.7 kg (120 lb 9.5 [...] Abnormal Ventricular Rate 77 Atrial Rate 77 SC Interval 180 QRSD Interval 124 QT Interval 416 QTC Interval 470 P [place] 23 R [place] 268 T Wave [place] 67 Diagnosis Normal sinus rhythm Diagnosis Right [...] valvular disease. PFTs No results found for: [id number] , [id number] , [id number] , FVCPRED Relevant Problems Cardio (+) Asymptomatic bilateral carotid artery stenosis (+) Atrial premature depolarization (+) CAD (coronary artery disease), [place] coronary artery (+) Deep venous thrombosis of [...] Plan ASA 3 Plan was reviewed with: FORMSTONE FITTER Anesthesia technique(s) discussed with the patient/family: general [...] BREAST SURGERY N/A Breast Surgery Reconstruction from [employer] BREAST SURGERY N/A Breast Surgery from [employer] CHOLECYSTECTOMY N/A Cholecystotomy from [employer] KIDNEY SURGERY N/A Kidney Surgery from [employer] KNEE SURGERY N/A Knee Surgery from [employer] MASTECTOMY N/A Breast Surgery Mastectomy from [employer] SHOULDER SURGERY Right Shoulder Surgery Right from [employer] [3] Allergies Allergen Reactions Sulfa Drugs Anaphylaxis Ultram [Tramadol] Swelling lips swell Hydrocodone Unknown - Patient states they do not know rxn details [facility] is unaware of what reaction. Pedi-Pre Tape [place] [Wound Dressing Adhesive] Rash Wellbutrin [Bupropion] Rash [...] Description 04/04/2025 10:40 AM EDT [facility] [address] [place] [address] Eugenia Jimenez, APPAREL RENTAL CLERK [address] [place] [address] 05/16/2025 8:00 AM EDT Office Visit [facility] [place] [address] [facility], [address] [place] [address] Karly Gracia MD [address] [place] [address] 06/07/2025 1:00 PM EDT Office Visit [facility] [address] [place] [address] Tom Iraheta MD [address] [place] [address] documented as of this encounter Procedures Procedure Name Priority Date/Time Associated Diagnosis Comments PB ANESTHESIA PLACEHOLDER Routine 01/31/2025 9:58 AM EDT SC AN ELECTIVE ENDOTRACHEAL AIRWAY Routine 01/31/2025 9:58 AM EDT documented in this encounter Results * SC AN ELECTIVE ENDOTRACHEAL AIRWAY, PB ANESTHESIA PLACEHOLDER (01/31/2025 9:58 AM EDT) Narrative Migue Seay CRNA - 01/31/2025 9:58 AM EDT iMgue Seay CRNA 01/31/2025 10:45 AM Airway Date/Time: 01/31/2025 9:58 AM Reason: elective Airway not difficult General Information and Staff Patient location during procedure: OR FORMSTONE FITTER: Migue Seay CRNA Performed: LORETTA Patient Condition [...] Additional Comments Atraumatic. No change to dentition. Nj Sears MD ANESTHESIA ORDERABLES Final Result [...] documented as of this encounter Care Teams Fruit Culler Relationship Specialty Start Date End Date Vignesh Pickens MD [address] [place] [address] PCP - General 12/31/24 Cayla Erazo APRN, FREDERICK [address] [place] [address] Nurse Practitioner Urology 12/20/24 documented as of this encounter
--- OUTSIDE RECORDS SUMMARY | 2025-02-22 18:13 | XMS_ITS | Encounter Summary ---
Author Organization [facility] Address [address] [id number] Care Team Providers Care Hide Dyer Name Role Phone Cayla Erazo APRN, DNP Unavailable [phone] Vignesh Pickens MD Primary Care Provider [phone] Reason for Visit * Reason Comments Altered Mental Status * Auth/Cert (Routine) Specialty Diagnoses / Procedures Referred By Contac t Referred To Contact Diagnoses Sepsis (CMS/HCC) UTI, CKD, Hyponatremia, COPD exacerbation Bobby Parra MD [address] [place] [address] Phone: tel: fax: [facility] [address] [place] [address] Referral ID Status Reason Start Date Expiration Date Visits Re quested Visits Authorized [id number] 1 1 Encounter Details Date Type Department Care Team (Latest Contact Info) Description 02/22/2025 6:13 PM EDT - 03/02/2025 11:04 AM EDT Hospital Encounter [facility] [address] [place] [id number] Luda Morton MD [address] [place] [address] Bobby Parra MD [address] [place] [address] Luda Ralph MD [address] [place] [address] Ludy Hill MD [address] [facility] [address] [place] [address] Madonna Singleton MD [address] [place] [address] Acute respiratory failure with hypoxia and hypercapnia (Primary Dx); Dave coma scale total score 9-12, at arrival to emergency department; Acute cystitis without hematuria; Acute respiratory failure with hypercapnia; COPD exacerbation (CMS/HCC); Acute kidney injury superimposed on CKD (CMS/HCC); Chronic kidney disease, stage 3a (CMS/HCC); Hyponatremia; Acute encephalopathy; Sepsis with encephalopathy without septic shock, due to unspecified organism (CMS/HCC); Chronic diastolic (congestive) heart failure ([facility]/HCC); 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 [facility]charge Disposition: [facility] Social History Tobacco Use Types Packs/Day Years [...] first t rodríguez in the morning ([employer]CH[employer] WR[employer]) to steady your nerves or to [...] Sign Reading Time Taken Comments Blood Pressure 158/66 03/02/2025 8:14 AM EDT Pulse 57 03/02/2025 8:14 AM EDT Temperature 36.7 C (98 F) 03/02/2025 8:14 AM EDT Respiratory Rate 18 03/02/2025 8:14 AM EDT Oxygen Saturation 92% 03/02/2025 8:14 AM EDT Inhaled Oxygen Concentration - - Weight 88.6 kg (195 lb 5.2 oz) 03/02/2025 6:00 A M EDT Height 162.6 cm (5' 4.02 ) 02/24/2025 10:00 AM E DT Body Mass Index 33.53 02/28/2025 8:07 AM EDT documented in this encounter Functional Status * Calculated C-SSRS Risk Score (Lifetime/Recent) Answer Date of Assessment Author No Risk Indicated 03/01/2025 8:00 AM EDT Gayle Oakley, JIMI * Question Answer Date of Assessment Author 1. Wish to be (Past 1 Month) No 03/01/2025 8:00 AM EDT Gayle Light, RN 2. Non-Specific Active Suici annie Thoughts (Past 1 Month) No 03/01/2025 8:00 AM EDT Andria Light, RN 6. Suicidal Behavior (Lifetime) No 8:00 AM EDT Gayle Light, RN documented as of this encounter Medications at [...] tablet by mouth 2 times a day. 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 6 tablet 03/04/2025 clopidogrel (Plavix) 75 MG tablet Take 1 tablet by mouth daily. 01/17/2020 cyanocobalamin (Vitamin B-12) 1000 MCG tablet Take 1 tablet by mouth daily. D-Mannose 500 MG capsule Take 2,000 mg by mouth 1 (one) time each day. 120 capsule 11 09/26/2024 DULoxetine (Cymbalta) [address] capsule Take 1 capsule by mouth daily for 7 doses. Do not crush or chew. 03/02/2025 estradiol (Estrace) 0.1 MG/GM vaginal cream Insert 1 gram into the vagina 3x/week 30 g 3 09/26/2024 fentaNYL (Duragesic) 12 MCG/HR Place 1 patch on the skin every 3rd day. 3 patch 03/02/2025 ferrous sulfate 325 (65 Fe) MG tablet Take 1 tablet by mouth 2 times a day. fluticasone (Flonase) 50 MCG/ACT nasal spray Administer 1 spray into each nostril 2 times a day. 01/17/2020 insulin glargine-yfgn 100 UNIT/ML injection vial Inject 30 Units under the skin nightly. 03/02/2025 loperamide (Imodium) 2 MG capsule Take 1 capsule by mouth every 4 hours as needed. 09/16/2020 magnesium oxide (Mag-Ox) 400 mg tablet Take 1 tablet by mouth 2 times a day. mirabegron ER (Myrbetriq) 50 MG tablet Take 1 tablet by mouth daily. multivitamin (Theragran-M) tablet Take 1 tablet by mouth daily. naloxone (Narcan) 4 mg/0.1 mL nasal spray 1. Give 1 spray in nostril for no/slow breathing or cannot wake after opioid use 2. Call 911 3. Repeat in other nostril if symptoms continue 1 each 03/02/2025 ondansetron (Zofran) 4 MG tablet Take 1 tablet by mouth every 6 hours as needed. 01/17/2020 oxyCODONE-acetam inophen (Percocet) 5-325 MG tablet Take 1 tablet by mouth 2 times a day as needed for severe pain. 6 tablet 03/02/2025 pantoprazole (ProtoNix) 20 MG EC tablet Take 1 tablet by mouth daily before breakfast. 01/08/2021 pregabalin (Lyrica) 50 MG capsule Take 1 capsule by mouth daily. 3 capsule 03/02/2025 traZODone (Desyrel) 150 MG tablet Take 2 tablets by mouth nightly. 01/16/2021 trospium (Sanctura) 20 MG tablet Take 1 tablet (20 mg) by mouth 2 (two) times a day. 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 03/02/2025 5 documented as of this encounter Miscellaneous Notes * Query Clarification Note - Luda Ralph MD - 03/02/2025 11:04 AM EDT Physician Clarification Please review the following and provide your response below. Current documentation includes a diagnosis of sepsis in the 02/23 - 02/24 MICU Progress Notes and in the 03/01/2025 Hospital Medicine Progress Note. Sepsis does not appear elsewhere in the medical record including in the Discharge Summary. The purpose of this query is not to question medical judgment, but to ensure the accuracy of the conditions reported for your patient. Please clarify the documentation of sepsis: [x]Sepsis remains a known condition for this patient and is a valid diagnosis for the hospitalization []Sepsis has been ruled out []Other (please specify): Use of terms such as suspected, likely, concern for, or probable (associated with a specific diagnosis that is being evaluated, monitored, or treated as if it exists) are acceptable and can be coded in the inpatient setting, when documented at the time of discharge. This documentation will become part of the patient's medical record. * Significant Event - Madonna Singleton MD - 03/02/2025 11:04 AM EDT Urine cultures came back positive , and resistant to Augmentin , she is allergic to bactrim so sending 3 days of ciprofloxacin to her pharmacy , Reached out TO NN to inform patient. * Care Plan - Gayle Light RN - 03/02/2025 11:02 AM EDT Problem: Adult Inpatient Plan of Care Goal: Plan of Care Review Outcome: Adequate for Care Transition Flowsheets Taken 02/28/2025 0816 by Gayle Light RN Progress: improving Outcome Evaluation: continue current POC Taken 02/22/2025 2234 by Daniela Mcbride RN Plan of Care Reviewed With: patient Goal: Patient-Specific Goal (Individualized) Outcome: Adequate for Care Transition Flowsheets (Taken 03/02/2025 1053) Patient/Family-Specific Goals (Include Timeframe): pt will be free from injury/harm throughout shift. Individualized Care Needs: safety Anxieties, Fears or Concerns: going back to facility Goal: Absence of Hospital-Acquired Illness or Injury Outcome: Adequate for Care Transition Intervention: Prevent Skin Injury Flowsheets Taken 03/02/2025 08 by Stefanie Frances I Body Position: turned Taken 02/28/2025 08 by Gayle Light RN Skin Protection: incontinence pads utilized Intervention: Prevent and Manage VTE (Venous Thromboembolism) Risk Flowsheets (Taken 03/02/2025 08) VTE Prevention/Management: SCDs (sequential compression devices) on right Goal: Optimal Comfort and Wellbeing Outcome: Adequate for Care Transition Intervention: Monitor Pain and Promote Comfort Flowsheets (Taken 03/02/2025 0823) Pain Management Interventions: medication (see MAR) emotional support Goal: Readiness for Transition of Care Outcome: Adequate for Care Transition Intervention: Mutually Develop Transition Plan Flowsheets Taken 03/01/2025 0925 by Anthony Vaughn Discharge Facility/Level of Care Needs: 3-[facility] Current Outpatient/Agency/Support Group: [facility] Transportation Anticipated: ([facility]) other (see comments) Outpatient/Agency/Support Group Needs: [facility] Transportation Concerns: none Concerns to be Addressed: discharge planning Readmission Within the Last 30 Days: other (see comments) Patient/Family Anticipated Services at Transition: [facility] Patient/Family Anticipates Transition to: long-term care facility Taken 02/28/2025815 by Gayle Light RN Equipment Needed After Discharge: (unknown at this time) other (see comments) Anticipated Changes Related to Illness: inability to care for self Current Discharge Risk: physical impairment Taken 02/25/2025 151 by Sarah Rand Equipment Currently Used at Home: cane, straight wheelchair, manual wheelchair, power Problem: Sepsis/Septic Shock Goal: Blood Glucose Level Within Target Range Outcome: Adequate for Care Transition Intervention: Optimize Glycemic Control Flowsheets (Taken 02/22/20252233 by Daniela Mcbride RN) Hyperglycemia Management: blood glucose monitored Hypoglycemia Management: blood glucose monitored Goal: Absence of Infection Signs and Symptoms Outcome: Adequate for Care Transition Intervention: Initiate Sepsis Management Flowsheets Taken 03/02/2025799 by Stefanie Frances I Isolation Precautions: precautions maintained Taken 02/28/2025815 by Gayle Light RN Infection Management: aseptic technique maintained Taken 02/24/20252002 by Daniela Mcbride RN Stabilization Measures: airway opened Taken 02/22/20252233 by Daniela Mcbride RN Infection Prevention: environmental surveillance performed Intervention: Promote Stabilization Flowsheets Taken 02/28/2025815 by Gayle Light RN Fluid/Electrolyte Management: fluids adjusted Fever Reduction/Comfort Measures: lightweight bedding lightweight clothing Taken 02/23/2025 1254 by Temi Mao RN Lung Protection Measures: fluid excess minimized Intervention: Promote Recovery Flowsheets Taken 03/02/2025 08 by Stefanie Frances I Activity Management: activity adjusted per tolerance activity encouraged Taken 02/28/2025815 by Gayle Light RN Airway/Ventilation Management: airway patency maintained calming measures promoted oxygen therapy provided position adjusted Sleep/Rest Enhancement: consistent schedule promoted natural light exposure provided regular sleep/rest pattern promoted relaxation techniques promoted Problem: Oral Intake Inadequate Goal: Improved Oral Intake Outcome: Adequate for Care Transition Intervention: Promote and Optimize Oral Intake Flowsheets (Taken 02/25/20251911 by Bassem Jay RN) Oral Nutrition Promotion: physical activity promoted Nutrition Interventions: diet adjusted food preferences provided Problem: Mobility Impairment Goal: Optimal Mobility Outcome: Adequate for Care Transition Intervention: Optimize Mobility Flowsheets Taken 03/02/2025 08 by Stefanie Frances I Activity Management: activity adjusted per tolerance activity encouraged Taken 02/27/2025 1435 by Daniela Carroll APRN, DNP Positioning/Transfer Devices: pillows Problem: Self-Care Deficit Goal: Improved Ability to Complete Activities of Daily Living Outcome: Adequate for Care Transition Intervention: Promote Activity and Functional [place] Flowsheets Taken 03/02/2025 08 by Gayle Light RN Activity Assistance Provided: assistance, 2 people Taken 02/28/2025815 by Gayle Light RN Adaptive Equipment Use: use encouraged Taken 02/26/20251749 by Bassem Jay RN Self-Care Promotion: independence encouraged Problem: Skin Injury Risk Increased Goal: Skin Health and Integrity Outcome: Adequate for Care Transition Intervention: Optimize Skin Protection Flowsheets Taken 03/02/2025 08 by Stefanie Frances I Activity Management: activity adjusted per tolerance activity encouraged Head of Bed (HOB) Positioning: HOB at 30-45 degrees Taken 02/28/2025 08 by Gayle Light RN Pressure Reduction Techniques: frequent weight shift encouraged weight shift assistance provided Pressure Reduction Devices: positioning supports utilized specialty bed utilized Taken 02/28/2025 08 by Gayle Light RN Skin Protection: incontinence pads utilized Intervention: Promote and Optimize Oral Intake Flowsheets (Taken 02/25/20251911 by Bassem Jay, RN) Oral Nutrition Promotion: physical activity promoted Nutrition Interventions: diet adjusted food preferences provided Problem: Fall Injury Risk Goal: Absence of Fall and Fall-Related Injury Outcome: Adequate for Care Transition Intervention: Identify and Manage Contributors Flowsheets Taken 02/26/2025 1750 by Bassem aJy RN Self-Care Promotion: independence encouraged Taken 02/23/2025 1254 by Temi Mao RN Medication Review/Management: medications reviewed high-risk medications identified Intervention: Promote Injury-Free Environment Flowsheets (Taken 03/02/2025 0800 by Stefanie Frances I) Safety Promotion/Fall Prevention: activity supervised assistive device/personal items within reach clutter-free environment maintained fall prevention program maintained lighting adjusted mobility aid in reach nonskid shoes/slippers when out of bed safety round/check completed * Nursing Note - Gayle Light RN - 03/02/2025 10:46 AM EDT Patient discharged at approximately 1040 via [facility] wheelchair transport. Report called to JHONNY Hawkins at [facility] in [place]. All appropriate paperwork and personal belongings sent withpatient. * [facility] - Gayle Light RN - 03/02/2025 9:03 AM EDT Images from the original note were not included. [id number] Sepsis Sepsis is a very serious condition. It happens when your body responds with widespread inflammationto a severe infection, usually caused by bacteria. Sometimes it may be caused by a virus. Sepsis can be deadly. Blood pressure may drop. The lungs, liver, and kidneys may start to fail. Sepsis is a medical emergency. If someone has symptoms of sepsis, call 911 right away. Risk factors Those most at risk for sepsis are: ?? Infants or older adults ?? People who have an illness that weakens their immune system, such as cancer, AIDS, or diabetes ?? People being treated with chemotherapy medicines, high-dose steroids, or radiation, which weakenthe immune system ?? People who have had an organ transplant ?? People with long-term (chronic) lung, kidney, liver, or heart disease ?? People with a very severe infection, such as pneumonia, meningitis, or a urinary tract infection When to call 911 Sepsis is a medical emergency. Call 911 right away if you have a fever with any of these symptoms: ?? Chills and shaking ?? Fast heartbeat and breathing ?? Trouble breathing ?? Severe nausea or uncontrolled vomiting ?? Confusion, disorientation, drowsiness, or dizziness ?? Decreased urination ?? Severe pain, including in the back or joints What to expect in the emergency room To treat sepsis, antibiotics and fluids may by given through an intravenous (IV) line. ?? Blood and urine tests are done to look for bacteria. They also check for organ failure. ?? Blood, urine, or sputum cultures may be taken. The samples are sent to a lab. They are placed tamara special container. Any bacteria should grow in 24 to 48 hours. ?? X-rays or other imaging tests may be done. A person with sepsis will be admitted to the hospital and treated with antibiotics. Treatment will also include oxygen and IV (intravenous) fluids and other medicines as needed. The person will be watched very closely, usually in the intensive care unit (ICU). Last Reviewed Date: 2023 00:00:00 ?? [id number] [employer]. All rights reserved. This information is not intended as a substitute for professional medical care. Always follow your healthcare professional's instructions. * [facility] - Gayle Light RN - 03/02/2025 9:03 AM EDT Images from the original note were not included. [id number] Discharge Instructions for Acute Kidney Injury You have been diagnosed with acute kidney injury. This means that you have had a sudden episode of kidney failure or damage that causes your kidneys not to work correctly. When both kidneys are healthy, they help filter out fluid and waste from the blood and body. Acute kidney injury has many causes. These include urinary blockages, infection, lack of enough blood supply, and medicines that can injure kidneys. In some cases, acute kidney injury is short-term (temporary). This type lasts severaldays to a few months. This is because the kidney can repair itself. Acute kidney injury can also result in chronic kidney disease or end stage renal failure. Here are some directions for you to follow as you recover. Home care ?? Follow any directions for eating and drinking given to you by your healthcare provider. o Drink less fluid, if directed by your healthcare provider. o Keep a record of everything you eat and drink. ?? Measure the amount of urine and stool you have each day. ?? Weigh yourself every day, at the same time of day, and in the same kind of clothes. Keep a dailyrecord of your daily weights. ?? Take your temperature every day. Keep a record of the results. ?? Learn to take your own blood pressure (BP). Your healthcare provider can teach you how to correctly measure your BP. Keep a record of your results. Bring the record to your follow-up appointments.Ask your healthcare provider when you should seek emergency medical attention. Your provider will tell you what blood pressure reading is dangerous. ?? Stay away from people who have infections. This includes people with colds, bronchitis, or skin conditions. ?? Practice good personal hygiene. Wash your hands often. This is especially important if you have a catheter in place when you leave the hospital. Doing so helps keep you safe from infection. ?? Take your medicines exactly as directed. ?? You may need frequent blood and urine tests. These are done to keep track of your kidney function. Follow-up care Follow up with your healthcare provider, or as advised. When to call your healthcare provider Call your healthcare provider right away if any of the following occur: ?? Signs of bladder infection, such as urinating more often, burning or pain when you pee, pain above your pubic bone, blood in your urine, or trouble starting your urine stream ?? Signs of infection around your catheter, such as redness, swelling, warmth, or fluid leaking ?? Rapid weight loss or weight gain, such as 3 pounds or more in 24 hours or 6 pounds or more in 7 days ?? Fever above 100.4?? F ( 38??C ) or as directed by your healthcare provider ?? Chills ?? Muscle aches ?? Night sweats ?? Very little or no urine output ?? Swelling of your hands, legs, or feet ?? Back pain ?? Abdominal (belly) pain ?? Extreme tiredness Last Reviewed Date: 2022 00:00:00 ?? [id number] [employer]. All rights reserved. This information is not intended as a substitute for professional medical care. Always follow your healthcare professional's instructions. * Discharge Summary - Madonna Singleton MD - 03/02/2025 8:47 AM EDT Hospitalization Admit Date/Time: 02/22/2025 6:13 PM Admitting Attending: Bobby Parra Discharge Date: 03/02/25 Discharge Attending Physician: Madonna Singleton MD PCP name and Address: Vignesh Pickens MD [address] / [place] [address] Referring provider name and address: Jordan Carl MD [address] [place] [address] Chief Concern, Brief History of Present Illness, and Hospital Course 64 y.o. female with PMHx significant for CAD s/p PCI, ICM w/ LVEF 35-40%, CVA w/ residual L-sided deficits s/p ICA stents, Fibromyalgia, Left AKA, insulin dependent T2DM, HTN, HLD, prior breast cancer s/p mastectomy, COPD, recurrent UTI's s/p cystoscopy w/ bilateral retrograde pyelogram w/ bilateral ureteral stent placement 01/31/25 with urology presenting from OSH with AHRF and AMS. Pt was intubated for airway protection on arrival to ED for GSC of 7. Pt was found to be positive for Rhinovirus and had a negative infectious workup. She was extubated to [place] w/o complications on 02/24/25. Currently saturating well on room air. Acute hypoxic respiratory failure requiring MV iso viral pneumonia with Rhinovirus c/b suspected OHS, improving She was hypoxic on arrival to OSH w/ SpO2 88% on [address] PE OSH no evidence of PE, diffuse bilateral ground glass opacifications Her initial VBG 7.28/60/4, post-intubation VBG 7.33/49/27, PCR + for Rhinovirus Her urine strep/legionella negative, PAL MURF, Bcx NGTD S/p extubation 02/24, NC for SPO2 92%+ PLAN: Supportive care for viral pneumonia iso + Rhinovirus Wean O2 as tolerated, goal O2% is > 88% Continue dulera and at d/c can resume Breo Left Upper Molar Pain: Abnormal Dentition: Can see multiple cavities and very poor dentition along with broke molar, causing pt pain for the last 2 weeks Consulted OMFS for evaluation for Non-restorable tooth #15 , underwent surgery 02/28, doing ok. Neurogenic bladder c/b hydronephrosis and hydroureter c/b CKD stage 3b Non-oliguric GEOVANNI with Disorder of Fluid and Electrolytes, resolved Baseline Scr 1.6-1.8 Has likely prerenal, given bilateral hydronephrosis is chronic, 01/31 underwent cystoscopy w/ bilateral retrograde pyelogram and bilateral ureteral stent placement for neurogenic bladder with hematuria, stents left in place on strings with parekh catheter, pt instructed to remove 02/[address] OSH bilateral hydronephrosis and hydroureter present, no evidence of stents. UA OSH + leuks and bacteria with cloudy urine, repeat UA at on arrival, shows no bacteria, + leuks, pyuria, negative nitrite; likely contaminated as parekh leaking poor and pt likely colonized and no leukocytosis, Ucx normal jesus PLAN: strict I&O, renally dose medications, avoid nephrotoxic agents caution with IV fluids as EF 35% Hematuria resolved, will monitor renal function and volume status consulted urology for parekh management, now pt w/o parekh, using external cath resumed home meds continue Mirabegron HFrEF 2/2 ICM - 11/2024 LVEF 35-40% - Current GDMT: coreg 12.5mg BID, SGLT2i contraindicated 2/2 recurrent UTIs, hyperK precludes spironolactone - evaluated by cardiology 10/2024 - NT-proBNP 1,542 PLAN: - patient dose not appear hypervolemic on exam, holding diuresis at this time - resumed coreg and increased dose to 25mg BID for more optimal BP management ICA stenosis s/p L ICA stent w/ Hx of CVA -Xarelto and Plavix on home meds - resume plavix and discontinue xarelto - Pt informed me she was started on this after her stroke (appears to be Triple therapy that was never discontinued). She denied any history of atrial fibrillation. Telemetry had flagged her for afibbut EKG reveals low voltage p waves with RBBB. Her HAS-BLED score is 4pts (a 9% risk of bleed) which is high risk for bleed and not recommended to have DOAC if not indicated. At this time we will discontinue the xarelto indefinitely Resolved Conditions this admission: Hypovolemic Hyponatremia, resolved - baseline Na 130-135 - Na 120 at OSH, 125 on arrival to [facility] - Serum osm wnl, urine osm 408 with Na 31 PLAN: -Na 132 7/6 Acute Encephalopathy, resolved - metabolic vs toxic from cymbalta withdrawal, likely etiology is multifactorial in combination with hyponatremia and viral pna - was told to stop 90mg of Cymbalta on 02/20/25, no evidence of taper in for this - monitored serum Na per below - weaned sedation as tolerated to continue to assess mentation Elevated alkaline phophatase, resolved - AST 13, ALT 19, alk phos 144 ->105 Dysuria: UTI: Was complaining of dysuria, UA obtained , UA dirty , received 2 doses of ceftriaxone, discharging on one more day Augmentin , will add nurse navigators to follow on cultures with her after discharge. Chronic conditions not being actively addressed during this admission: #Breast cancer s/p mastectomy: holding anastrazole pending med rec #CAD s/p PCI: atorvastatin #CVA w/ residual L sided deficits: atorvastatin, Plavix #T2DM: A1c is 9.2%, on ssi, resume home glargine when eating PO #Chronic Pain: resumed home meds today Surgeries and Procedures Procedures performed in this encounter Procedures Critical Care Critical Care Intubation Medication List .. acetaminophen 500 MG tablet Commonly known as: Tylenol Take 1 tablet by mouth every 6 hours as needed. amoxicillin-clavulanate 875-125 MG tablet Commonly known as: Augmentin Take 1 tablet by mouth 2 times a day for 1 day. anastrozole 1 MG chemo tablet Commonly known as: Arimidex Take 1 tablet (1 mg total) by mouth daily. ascorbic acid 500 MG tablet Commonly known as: Vitamin C Take 1 tablet by mouth twice a day. atorvastatin 40 MG tablet Commonly known as: Lipitor Take 1 tablet by mouth daily. azelastine 0.1 % nasal spray Commonly known as: Astelin Administer 2 sprays into each nostril 2 times a day. Use in each nostril as directed baclofen 10 MG tablet Commonly known as: Lioresal Take 1 tablet by mouth 3 times a day. Breo Ellipta 100-25 MCG/ACT aerosol powder Generic drug: Fluticasone Furoate-Vilanterol Inhale 1 puff daily. calcitriol 0.25 MCG capsule Commonly known as: Rocaltrol Take 1 capsule by mouth daily. carvedilol 12.5 MG tablet Commonly known as: Coreg Take 1 tablet by mouth 2 times a day with meals. cholecalciferol 25 MCG (1000 UT) tablet Commonly known as: Vitamin D3 Take 1 tablet by mouth 2 times a day. clopidogrel 75 MG tablet Commonly known as: Plavix Take 1 tablet by mouth daily. cyanocobalamin 1000 MCG tablet Commonly known as: Vitamin B-12 Take 1 tablet by mouth daily. D-Mannose 500 MG capsule Take 2,000 mg by mouth 1 (one) time each day. DULoxetine [address] capsule Commonly known as: Cymbalta Take 1 capsule by mouth daily for 7 doses. Do not crush or chew. estradiol 0.1 MG/GM vaginal cream Commonly known as: Estrace Insert 1 gram into the vagina 3x/week fentaNYL 12 MCG/HR Commonly known as: Duragesic Place 1 patch on the skin every 3rd day. ferrous sulfate 325 (65 Fe) MG tablet Take 1 tablet by mouth 2 times a day. fluticasone 50 MCG/ACT nasal spray Commonly known as: Flonase Administer 1 spray into each nostril 2 times a day. insulin glargine-yfgn 100 UNIT/ML injection vial Inject 30 Units under the skin nightly. loperamide 2 MG capsule Commonly known as: Imodium Take 1 capsule by mouth every 4 hours as needed. magnesium oxide 400 mg tablet Commonly known as: Mag-Ox Take 1 tablet by mouth 2 times a day. mirabegron ER 50 MG tablet Commonly known as: Myrbetriq Take 1 tablet by mouth daily. multivitamin tablet Take 1 tablet by mouth daily. naloxone 4 mg/0.1 mL nasal spray Commonly known as: Narcan 1. Give 1 spray in nostril for no/slow breathing or cannot wake after opioid use 2. Call 911 3. Repeat in other nostril if symptoms continue ondansetron 4 MG tablet Commonly known as: Zofran Take 1 tablet by mouth every 6 hours as needed. oxyCODONE-acetaminophen 5-325 MG tablet Commonly known as: Percocet Take 1 tablet by mouth 2 times a day as needed for severe pain. pantoprazole 20 MG EC tablet Commonly known as: ProtoNix Take 1 tablet by mouth daily before breakfast. pregabalin 50 MG capsule Commonly known as: Lyrica Take 1 capsule by mouth daily. traZODone 150 MG tablet Commonly known as: Desyrel Take 2 tablets by mouth nightly. trospium 20 MG tablet Commonly known as: Sanctura Take 1 tablet (20 mg) by mouth 2 (two) times a day. Where to Get Your Medications These medications were sent to [facility] - [facility] - [facility] [place] [id number] fentaNYL 12 MCG/HR naloxone 4 mg/0.1 mL nasal spray oxyCODONE-acetaminophen 5-325 MG tablet pregabalin 50 MG capsule Information about where to get these medications is not yet available Ask your nurse or doctor about these medications amoxicillin-clavulanate 875-125 MG tablet DULoxetine [address] capsule insulin glargine-yfgn 100 UNIT/ML injection vial Discharge Diagnosis Medical Problems Active and Resolved Hospital Problems Hospital * (Principal) Sepsis (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 05/16/2025 8:00 AM Karly Gracia MD CARGSMOB [facility] 06/07/2025 1:00 PM Tom Iraheta MD [facility] [place] Test Results Pending At Discharge Pending Labs Order Current Status Urine Culture In process Pertinent Physical Exam At Time of Discharge Physical Exam Discharge Disposition/Condition Disposition Condition: Stable (s/sx potential problems absent or manageable) I spent >30 minutes of patient care and instruction time in preparation for this discharge. * Progress Notes - Daniela Thomas - 03/02/2025 8:45 AM EDT Case Management Adult Progress Note Eileen May 64 y.o. female CSN: [id number] Admission: 02/22/2025 6:13 PM Primary Problem: Sepsis (CMS/HCC) Anticipated Discharge Date: 03/02/25 Has Discharge Plans Changed? No Medicare Second Notice: Medicare Medicare Second Notice?: Yes Date Second Notice Completed: 03/01/25 Time Second Notice Completed: 854 Medicare Second Notice Recieved By: Pt at bedside Housing Circumstances: Not Applicable Housing Circumstances Action Taken: Other na Medically Ready for Discharge: Ready Now Additional Comments Pt has Caliber wheel Chair transport scheduled today at 9am To: [facility] Report: [phone] Discharge Summary fax: [phone] Escribe new meds/controls to: [facility] will remain available through discharge if needs arise. 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 [id number] Acute Kidney Injury: Care Instructions Overview Acute kidney injury (GEOVANNI) is a sudden decrease in kidney function. This can happen over a period ofhours, days or, in some cases, weeks. GEOVANNI used to be called acute renal failure, but kidney failuredoesn't always happen with GEOVANNI. Common causes of GEOVANNI are serious infection, blood loss, and some medicines. When GEOVANNI happens, the kidneys have trouble removing waste and excess fluids from the body as urine.The waste and fluids build up and become harmful. Kidney function may return to normal if the cause of GEOVANNI is treated quickly. Your chance of a full recovery depends on what caused the problem, how quickly the cause was treated, and what other medical problems you have. You may have a treatment called dialysis. It does the work of healthy kidneys to remove waste and fluids for a short time. Follow-up care is a madden part of your treatment and safety. Be sure to make and go to all appointments, and call your doctor if you are having problems. It's also a good idea to know your test resultsand keep a list of the medicines you take. How can you care for yourself at home? ?? Talk to your doctor about how much fluid you should drink. ?? Eat a balanced diet. Talk to your doctor or a dietitian about what type of diet may be best for you. You may need to limit sodium, potassium, and phosphorus. ?? If you need dialysis, follow the instructions and schedule for dialysis that your doctor gives you. ?? Do not smoke. Smoking can make your condition worse. If you need help quitting, talk to your doctor about stop-smoking programs and medicines. These can increase your chances of quitting for good. ?? Limit alcohol. ?? Review all of your medicines with your doctor. Do not take any medicines, including nonsteroidalanti-inflammatory drugs (NSAIDs), such as ibuprofen (Advil, Motrin) or naproxen (Aleve), unless your doctor says it is safe for you to do so. ?? Make sure that anyone treating you for any health problem knows that you have had GEOVANNI. When should you call for help? Call 911 anytime you think you may need emergency care. For example, call if: ?? You passed out (lost consciousness). Call your doctor now or seek immediate medical care if: ?? You have new or worse nausea and vomiting. ?? You have much less urine than normal, or you have no urine. ?? You are feeling confused or cannot think clearly. ?? You have new or more blood in your urine. ?? You have new swelling. ?? You are dizzy or lightheaded, or feel like you may faint. Watch closely for changes in your health, and be sure to contact your doctor if: ?? You do not get better as expected. Current as of: June 01, 2023 Content Version: 14.0 Care instructions adapted under license by your healthcare professional. If you have questions about a medical condition or this instruction, always ask your healthcare professional. [employer] disclaims any warranty or liability for your use of this information. ?? [id number] [employer], [employer]. * Lawanda Katerine - Gayle Light, RN - 03/02/2025 8:44 AM EDT Images from the original note were not included. [id number] Urinary Tract Infections in Women Urinary tract infections (UTIs) are most often caused by bacteria. These bacteria enter the urinarytract. The bacteria may come from inside the body. Or they may travel from the skin outside the rectum or vagina into the urethra. Female anatomy makes it easy for bacteria from the bowel to enter a person?s urinary tract. This is the most common source of UTIs. This means women develop UTIs more often than men. Pain in or around the urinary tract is a common UTI symptom. But the only way to know for sure if you have a UTI is for the healthcare provider to test your pee. The two tests that may be done are the urinalysis and urine culture. These tests tell your provider if you have a UTI and what type of bacteria is causing it. Gender words are used here to talk about anatomy and health risk. Please use this information in a way that works best for you and your provider as you talk about your care. Types of UTIs ?? Cystitis. A bladder infection (cystitis) is the most common UTI in women. You may have an urgentor frequent need to pee. You may also have pain, burning when you pee, and bloody urine. ?? Urethritis. This is an inflamed urethra. This is the tube that carries urine from the bladder tooutside the body. You may have lower stomach or back pain. You may also have an urgent or frequent need to pee. ?? Pyelonephritis. This is a kidney infection. It can be serious and damage your kidneys if not treated. You may need to stay in the hospital in severe cases. You may have a fever and lower back pain. Medicines to treat a UTI Most UTIs are treated with antibiotics. These kill the bacteria. The length of time you need to take them depends on the type of infection. It may be as short as 3 days. You may need a low-dose antibiotic for several months if you have repeated UTIs. Take antibiotics exactly as directed. Don?t stoptaking them until all of the medicine is gone, even if you feel better. The infection may not go away fully and return if you stop taking the antibiotic too soon. You may also develop a resistance tothe antibiotic. This can make it much harder to treat. Lifestyle changes to treat and prevent UTIs The lifestyle changes below will help get rid of your UTI. They may also help prevent future UTIs. ?? Drink plenty of fluids. This includes water, juice, or other caffeine-free drinks. Fluids help flush bacteria out of your body. ?? Empty your bladder. Always empty your bladder when you feel the urge to pee. And always pee before going to sleep. Urine that stays in your bladder can lead to infection. Try to pee before and after sex as well. ?? Practice good personal hygiene. Wipe yourself from front to back after using the toilet. This helps keep bacteria from getting into the urethra. ?? Wear cotton underwear. Don't wear synthetic or tight-fitting underwear that can trap moisture. Change out of wet bathing suits and workout clothing quickly. ?? Take showers. Showers are better than baths for preventing UTIs. ?? Use condoms during sex. These help prevent UTIs caused by sexually transmitted bacteria. Also don't use spermicides during sex. These can increase the risk for UTIs. Choose other forms of control instead. A low dose of a preventive antibiotic may be used for women who tend to get UTIs after sex. Be sure to discuss this choice with your healthcare provider. ?? Follow up with your healthcare provider as directed. They may test to make sure the infection has cleared. If needed, more treatment may be started. Last Reviewed Date: 2023 00:00:00 ?? [id number] [employer]. All rights reserved. This information is not intended as a substitute for professional medical care. Always follow your healthcare professional's instructions. * Care Plan - Aleyda Holley RN - 03/01/2025 10:48 PM EDT Problem: Sepsis/Septic Shock Goal: Absence of Bleeding Outcome: Adequate for Care Transition Goal: Blood Glucose Level Within Target Range 03/01/2025 2248 by Aleyda Holley RN Outcome: Ongoing, Progressing 03/01/20252242 by Aleyda Holley RN Outcome: Ongoing, Progressing Intervention: Optimize Glycemic Control 03/01/20252247 by Aleyda Holley RN Flowsheets (Taken 02/22/20252233 by Daniela Mcbride RN) Hyperglycemia Management: blood glucose monitored Hypoglycemia Management: blood glucose monitored 03/01/20252242 by Aleyda Holley RN Flowsheets (Taken 02/22/20252233 by Daniela Mcbride RN) Hyperglycemia Management: blood glucose monitored Hypoglycemia Management: blood glucose monitored Goal: Absence of Infection Signs and Symptoms 03/01/20252247 by Aleyda Holley RN Outcome: Ongoing, Progressing 03/01/20252242 by Aleyda Holley RN Outcome: Ongoing, Progressing Intervention: Initiate Sepsis Management 03/01/20252247 by Aleyda Holley RN Flowsheets Taken 03/01/2025 0800 by Gayle Light RN Isolation Precautions: protective Taken 02/28/2025 0816 by Gayle Light RN Infection Management: aseptic technique maintained Taken 02/24/20252002 by Daniela Mcbride RN Stabilization Measures: airway opened Taken 02/22/20252233 by Daniela Mcbride RN Infection Prevention: environmental surveillance performed 03/01/20252242 by Aleyda Holley RN Flowsheets Taken 03/01/2025 0800 by Gayle Light RN Isolation Precautions: protective Taken 02/28/2025 0816 by Gayle Light RN Infection Management: aseptic technique maintained Taken 02/24/20252002 by Daniela Mcbride RN Stabilization Measures: airway opened Taken 02/22/20252233 by Daniela Mcbride RN Infection Prevention: environmental surveillance performed Intervention: Promote Stabilization 03/01/20252247 by Aleyda Holley RN Flowsheets Taken 02/28/2025 0816 by Gayle Light RN Fluid/Electrolyte Management: fluids adjusted Fever Reduction/Comfort Measures: lightweight bedding lightweight clothing Taken 02/23/2025 1254 by Temi Mao RN Lung Protection Measures: fluid excess minimized 03/01/20252242 by Aleyda Holley RN Flowsheets Taken 02/28/2025 0816 by Gayle Light RN Fluid/Electrolyte Management: fluids adjusted Fever Reduction/Comfort Measures: lightweight bedding lightweight clothing Taken 02/23/2025 1254 by Temi Mao RN Lung Protection Measures: fluid excess minimized Intervention: Promote Recovery 03/01/2025 2248 by Aleyda Holley RN Flowsheets Taken 03/01/2025 0800 by Gayle Light RN Activity Management: bedrest activity adjusted per tolerance Taken 02/28/2025 0816 by Gayle Light RN Airway/Ventilation Management: airway patency maintained calming measures promoted oxygen therapy provided position adjusted Sleep/Rest Enhancement: consistent schedule promoted natural light exposure provided regular sleep/rest pattern promoted relaxation techniques promoted 03/01/20252242 by Aleyda Holley RN Flowsheets Taken 03/01/2025 0800 by Gayle Light RN Activity Management: bedrest activity adjusted per tolerance Taken 02/28/2025 0816 by Gayle Light RN Airway/Ventilation Management: airway patency maintained calming measures promoted oxygen therapy provided position adjusted Sleep/Rest Enhancement: consistent schedule promoted natural light exposure provided regular sleep/rest pattern promoted relaxation techniques promoted * Care Plan - Aleyda Holley RN - 03/01/2025 10:46 PM EDT Problem: Infection Goal: Absence of Infection Signs and Symptoms 03/01/20252245 by Aleyda Holley RN Outcome: Adequate for Care Transition 03/01/20252242 by Aleyda Holley RN Outcome: Ongoing, Progressing * Care Plan - Aleyda Holley RN - 03/01/2025 10:45 PM EDT Problem: Adult Inpatient Plan of Care Goal: Plan of Care Review Outcome: Ongoing, Progressing Flowsheets Taken 02/28/2025 0816 by Gayle Light RN Progress: improving Outcome Evaluation: continue current POC Taken 02/22/20252233 by Daniela Mcbride RN Plan of Care Reviewed With: patient Goal: Patient-Specific Goal (Individualized) Outcome: Ongoing, Progressing Flowsheets (Taken 03/01/2025 2241) Patient/Family-Specific Goals (Include Timeframe): Patient will be turned Q2 Hours Individualized Care Needs: Turn Q2 Hours Anxieties, Fears or Concerns: None expressed Goal: Absence of Hospital-Acquired Illness or Injury Outcome: Ongoing, Progressing Intervention: Prevent Skin Injury Flowsheets Taken 03/01/2025 2200 by Aleyda Holley RN Body Position: turned Taken 02/28/2025 0800 by Gayle Light RN Skin Protection: incontinence pads utilized Intervention: Prevent and Manage VTE (Venous Thromboembolism) Risk Flowsheets (Taken 03/01/2025 1600 by Gayle Light RN) VTE Prevention/Management: bilateral SCDs (sequential compression devices) on Goal: Optimal Comfort and Wellbeing Outcome: Ongoing, Progressing Intervention: Monitor Pain and Promote Comfort Flowsheets (Taken 03/01/2025 2243) Pain Management Interventions: emotional support ambulation/increased activity Goal: Readiness for Transition of Care Outcome: Ongoing, Progressing Intervention: Mutually Develop Transition Plan Flowsheets Taken 03/01/2025 0925 by Anthony Vaughn Discharge Facility/Level of Care Needs: [facility] Facility Current Outpatient/Agency/Support Group: [facility] Transportation Anticipated: ([facility]) other (see comments) Outpatient/Agency/Support Group Needs: [facility] Transportation Concerns: none Concerns to be Addressed: discharge planning Readmission Within the Last 30 Days: other (see comments) Patient/Family Anticipated Services at Transition: [facility] Patient/Family Anticipates Transition to: long-term care facility Taken 02/28/2025 0816 by Gayle Light RN Equipment Needed After Discharge: (unknown at this time) other (see comments) Anticipated Changes Related to Illness: inability to care for self Current Discharge Risk: physical impairment Taken 02/25/2025 1510 by Sarah Rand Equipment Currently Used at Home: cane, straight wheelchair, manual wheelchair, power * Care Plan - Gayle Light RN - 03/01/2025 6:45 PM EDT Problem: Infection Goal: Absence of Infection Signs and Symptoms Outcome: Ongoing, Progressing Problem: Adult Inpatient Plan of Care Goal: Plan of Care Review Outcome: Ongoing, Progressing Flowsheets Taken 02/28/2025 0816 by Gayle Light RN Progress: improving Outcome Evaluation: continue current POC Taken 02/22/2025 2234 by Daniela Mcbride RN Plan of Care Reviewed With: patient Goal: Patient-Specific Goal (Individualized) Outcome: Ongoing, Progressing Flowsheets (Taken 03/01/2025 0800) Patient/Family-Specific Goals (Include Timeframe): Pt will be free from injury/harm throughout shift. Individualized Care Needs: Safety Anxieties, Fears or Concerns: pain Goal: Absence of Hospital-Acquired Illness or Injury Outcome: Ongoing, Progressing Intervention: Prevent Skin Injury Flowsheets Taken 03/01/2025 1800 Body Position: turned Taken 02/28/2025 0800 Skin Protection: incontinence pads utilized Intervention: Prevent and Manage VTE (Venous Thromboembolism) Risk Flowsheets (Taken 03/01/2025 0800) VTE Prevention/Management: SCDs (sequential compression devices) on right Goal: Optimal Comfort and Wellbeing Outcome: Ongoing, Progressing Intervention: Monitor Pain and Promote Comfort Flowsheets (Taken 03/01/2025 1333) Pain Management Interventions: medication (see MAR) Goal: Readiness for Transition of Care Outcome: Ongoing, Progressing Intervention: Mutually Develop Transition Plan Flowsheets Taken 03/01/2025 0925 by Anthony Vaughn Discharge Facility/Level of Care Needs: [facility] Current Outpatient/Agency/Support Group: [facility] Transportation Anticipated: ([facility]) other (see comments) Outpatient/Agency/Support Group Needs: [facility] Transportation Concerns: none Concerns to be Addressed: discharge planning Readmission Within the Last 30 Days: other (see comments) Patient/Family Anticipated Services at Transition: [facility] Patient/Family Anticipates Transition to: long-term care facility Taken 02/28/2025 0816 by Gayle Light, RN Equipment Needed After Discharge: (unknown at this time) other (see comments) Anticipated Changes Related to Illness: inability to care for self Current Discharge Risk: physical impairment Taken 02/25/2025 1510 by Sarah Rand Equipment Currently Used at Home: cane, straight wheelchair, manual wheelchair, power Problem: Sepsis/Septic Shock Goal: Absence of Bleeding Outcome: Ongoing, Progressing Goal: Blood Glucose Level Within Target Range Outcome: Ongoing, Progressing Intervention: Optimize Glycemic Control Flowsheets (Taken 02/22/20252233 by Daniela Mcbride RN) Hyperglycemia Management: blood glucose monitored Hypoglycemia Management: blood glucose monitored Goal: Absence of Infection Signs and Symptoms Outcome: Ongoing, Progressing Intervention: Initiate Sepsis Management Flowsheets Taken 03/01/2025 08 by Gayle Light RN Isolation Precautions: protective Taken 02/28/2025815 by Gayle Light RN Infection Management: aseptic technique maintained Taken 02/24/20252002 by Daniela Mcbride RN Stabilization Measures: airway opened Taken 02/22/20252233 by Daniela Mcbride RN Infection Prevention: environmental surveillance performed Intervention: Promote Stabilization Flowsheets Taken 02/28/2025815 by Gayle Light RN Fluid/Electrolyte Management: fluids adjusted Fever Reduction/Comfort Measures: lightweight bedding lightweight clothing Taken 02/23/2025 1254 by Temi Mao RN Lung Protection Measures: fluid excess minimized Intervention: Promote Recovery Flowsheets Taken 03/01/2025 08 Activity Management: bedrest activity adjusted per tolerance Taken 02/28/2025815 Airway/Ventilation Management: airway patency maintained calming measures promoted oxygen therapy provided position adjusted Sleep/Rest Enhancement: consistent schedule promoted natural light exposure provided regular sleep/rest pattern promoted relaxation techniques promoted Problem: Oral Intake Inadequate Goal: Improved Oral Intake Outcome: Ongoing, Progressing Intervention: Promote and Optimize Oral Intake Flowsheets (Taken 02/25/2025 191 by Bassem Jay, RN) Oral Nutrition Promotion: physical activity promoted Nutrition Interventions: diet adjusted food preferences provided Problem: Mobility Impairment Goal: Optimal Mobility Outcome: Ongoing, Progressing Intervention: Optimize Mobility Flowsheets Taken 03/01/2025 08 by Gayle Light RN Activity Management: bedrest activity adjusted per tolerance Taken 02/27/2025 1435 by Daniela Carroll APRN, DNP Positioning/Transfer Devices: pillows Problem: Self-Care Deficit Goal: Improved Ability to Complete Activities of Daily Living Outcome: Ongoing, Progressing Intervention: Promote Activity and Functional [place] Flowsheets Taken 03/01/2025 0800 by Gayle Light RN Activity Assistance Provided: assistance, 2 people Taken 02/28/2025 0816 by Gayle Light RN Adaptive Equipment Use: use encouraged Taken 02/26/2025 1750 by Bassem Jay RN Self-Care Promotion: independence encouraged Problem: Skin Injury Risk Increased Goal: Skin Health and Integrity Outcome: Ongoing, Progressing Intervention: Optimize Skin Protection Flowsheets Taken 03/01/2025 0800 by Gayle Light RN Activity Management: bedrest activity adjusted per tolerance Taken 02/28/2025 2200 by Pat Young Head of Bed (HOB) Positioning: HOB elevated Taken 02/28/2025 0816 by Gayle Light RN Pressure Reduction Techniques: frequent weight shift encouraged weight shift assistance provided Pressure Reduction Devices: positioning supports utilized specialty bed utilized Taken 02/28/2025 0800 by Gayle Light RN Skin Protection: incontinence pads utilized Intervention: Promote and Optimize Oral Intake Flowsheets (Taken 02/25/2025 1912 by Bassem Jay RN) Oral Nutrition Promotion: physical activity promoted Nutrition Interventions: diet adjusted food preferences provided Problem: Fall Injury Risk Goal: Absence of Fall and Fall-Related Injury Outcome: Ongoing, Progressing Intervention: Identify and Manage Contributors Flowsheets Taken 02/26/2025 1750 by Bassem Jay RN Self-Care Promotion: independence encouraged Taken 02/23/2025 1254 by Temi Mao RN Medication Review/Management: medications reviewed high-risk medications identified Intervention: Promote Injury-Free Environment Flowsheets (Taken 03/01/2025 0800) Safety Promotion/Fall Prevention: clutter-free environment maintained * Clinician Note - Bassem Poole - 03/01/2025 3:00 PM EDT Physical Therapy Attempt Patient Name: Eileen May Today's Date: 03/01/2025 Patient was attempted to be seen by physical therapy 03/01/2025 for PT Treatment however bedside care in progress. Physical therapy team will follow-up as schedule permits. Written by Bassem Poole on 03/01/25 at 3:00 PM. * Progress Notes - Madonna Singleton MD - 03/01/2025 12:44 PM EDT Subjective Lying comfortably in the bed denied fever chills chest pain, saturating well on room air, she was planned for discharge today but now the transport is established for tomorrow 9 am. Review of Systems As above. Objective Vitals Temp: [36.3 ??C (97.4 ??F)-36.4 ??C (97.6 ??F)] 36.4 ??C (97.6 ??F) Heart Rate: [58-187] 85 Resp: [16-18] 16 BP: (116-176)/(66-89) 176/85 Physical Exam HENT: Head: Normocephalic. Cardiovascular: Rate and Rhythm: Normal rate and regular rhythm. Heart sounds: Normal heart sounds. Pulmonary: Effort: Pulmonary effort is normal. Neurological: Mental Status: She is alert. Assessment & Plan Sepsis (CMS/HCC) 64 y.o. female with PMHx significant for CAD s/p PCI, ICM w/ LVEF 35-40%, CVA w/ residual L-sided deficits s/p ICA stents, Fibromyalgia, Left AKA, insulin dependent T2DM, HTN, HLD, prior breast cancer s/p mastectomy, COPD, recurrent UTI's s/p cystoscopy w/ bilateral retrograde pyelogram w/ bilateral ureteral stent placement 01/31/25 with urology presenting from OSH with AHRF and AMS. Pt was intubated for airway protection on arrival to ED for GSC of 7. Pt was found to be positive for Rhinovirus and had a negative infectious workup. She was extubated to [place] w/o complications on 02/24/25. Currently saturating well on Acute hypoxic respiratory failure requiring MV iso viral pneumonia with Rhinovirus c/b suspected OHS, improving She was hypoxic on arrival to OSH w/ SpO2 88% on [address] PE OSH no evidence of PE, diffuse bilateral ground glass opacifications Her initial VBG 7.28/60/4, post-intubation VBG 7.33/49/27, PCR + for Rhinovirus Her urine strep/legionella negative, PAL MURF, Bcx NGTD S/p extubation 02/24, [place] for SPO2 92%+ PLAN: Supportive care for viral pneumonia iso + Rhinovirus Wean O2 as tolerated, goal O2% is > 88% Continue dulera and at d/c can resume Breo Left Upper Molar Pain: Abnormal Dentition: Can see multiple cavities and very poor dentition along with broke molar, causing pt pain for the last 2 weeks Consulted OMFS for evaluation for Non-restorable tooth #15 , underwent surgery 02/28, doing ok. Neurogenic bladder c/b hydronephrosis and hydroureter c/b CKD stage 3b Non-oliguric GEOVANNI with Disorder of Fluid and Electrolytes, resolved Baseline Scr 1.6-1.8 Has likely prerenal, given bilateral hydronephrosis is chronic, 01/31 underwent cystoscopy w/ bilateral retrograde pyelogram and bilateral ureteral stent placement for neurogenic bladder with hematuria, stents left in place on strings with parekh catheter, pt instructed to remove 02/[address] OSH bilateral hydronephrosis and hydroureter present, no evidence of stents. UA OSH + leuks and bacteria with cloudy urine, repeat UA at on arrival, shows no bacteria, + leuks, pyuria, negative nitrite; likely contaminated as parekh leaking poor and pt likely colonized and no leukocytosis, Ucx normal jesus PLAN: strict I&O, renally dose medications, avoid nephrotoxic agents caution with IV fluids as EF 35% Hematuria resolved, will monitor renal function and volume status consulted urology for parekh management, now pt w/o parekh, using external cath resumed home meds continue Mirabegron HFrEF 2/2 [facility] - 11/2024 LVEF 35-40% - Current GDMT: coreg 12.5mg BID, SGLT2i contraindicated 2/2 recurrent UTIs, hyperK precludes spironolactone - evaluated by cardiology 10/2024 - NT-proBNP 1,542 PLAN: - patient dose not appear hypervolemic on exam, holding diuresis at this time - resumed coreg and increased dose to 25mg BID for more optimal BP management ICA stenosis s/p L ICA stent w/ Hx of CVA -Xarelto and Plavix on home meds - resume plavix and discontinue xarelto - Pt informed me she was started on this after her stroke (appears to be Triple therapy that was never discontinued). She denied any history of atrial fibrillation. Telemetry had flagged her for afibbut EKG reveals low voltage p waves with RBBB. Her HAS-BLED score is 4pts (a 9% risk of bleed) which is high risk for bleed and not recommended to have DOAC if not indicated. At this time we will discontinue the xarelto indefinitely Resolved Conditions this admission: Hypovolemic Hyponatremia, resolved - baseline Na 130-135 - Na 120 at OSH, 125 on arrival to [facility] - Serum osm wnl, urine osm 408 with Na 31 PLAN: -Na 132 02/24 Acute Encephalopathy, resolved - metabolic vs toxic from cymbalta withdrawal, likely etiology is multifactorial in combination with hyponatremia and viral pna - was told to stop 90mg of Cymbalta on 02/20/25, no evidence of taper in for this - monitored serum Na per below - weaned sedation as tolerated to continue to assess mentation Elevated alkaline phophatase, resolved - AST 13, ALT 19, alk phos 144 ->105 Chronic conditions not being actively addressed during this admission: #Breast cancer s/p mastectomy: holding anastrazole pending med rec #CAD s/p PCI: atorvastatin #CVA w/ residual L sided deficits: atorvastatin, Plavix #T2DM: A1c is 9.2%, on ssi, resume home glargine when eating PO #Chronic Pain: resumed home meds today F: soft and bite sized, COUNTY TAX ASSESSOR eval Code Status: Assume Full Medically Ready for Discharge: * Progress Notes - Anthony Vaughn - 03/01/2025 9:27 AM EDT Case Management Discharge Note Eileen May 64 y.o. female CSN: [id number] Admission: 02/22/2025 6:13 PM Primary Problem: Sepsis (CMS/HCC) Primary Scenic Arts Supervisor: Primary Caregiver: Private caregiver Assistance Available at Discharge: Current Outpatient/Agency/Support Group: [facility]pc facility Availability of Care Givers (#Hours): 24 hours Family/Scenic Arts Supervisor(s) Willingness Assessed to care for patient at home: Yes Family/Scenic Arts Supervisor(s) Readiness Assessed to care for patient at home: Yes Housing Circumstances-Z Codes: Housing Circumstances (select all that apply): None Applicable Discharge Facility/Level of Care Needs: Discharge Facility/Level of Care Needs: [facility] Patient/Family Anticipated Services at Transition: Patient/Family Anticipated Services at Transition: fpc, rehabilitation services DME/Equipment Needed after Discharge: Equipment Currently Used at Home: cane, straight, wheelchair, manual, wheelchair, power Equipment Needed After Discharge: other (see comments) (unknown at this time) Readmission Within the Last 30 Days: Readmission Within the Last 30 Days: other (see comments) Medicare Documentation: Medicare Second Notice?: Yes Date Second Notice Completed: 03/01/25 Time Second Notice Completed: 854 Medicare Second Notice Recieved By: Pt at bedside Follow-up: [facility] [address] [place], [place] [id number] Follow up Vignesh Pickens MD [address] [id number] Follow up Discharge Transportation: Transportation Anticipated: other (see comments) ([facility]) Transportation Home at Discharge: Other(Comment) ([facility]) Has discharge transport been arranged?: Yes What day is the transport expected?: 03/01/25 What time is the transport expected?: 0900 Follow Up Transport: Transportation Needed to Follow up Appoinments: Other(Comment) ([facility]) Additional Comments: Plan of care reviewed with Pt's care team; Pt is medically ready for discharge. Pt is a resident [facility] in [place]. [facility] 300% fpg. Weekend CM to fax Pt's discharge summary to [phone], and bedside RN to call report to [phone]. Facility uses [facility] in [place]. SW met with Pt at bedside, who is agreeable. Anthony Vaughn * Care Plan - Gerry Ambriz - 02/28/2025 9:27 PM EDT Problem: Adult Inpatient Plan of Care Goal: Patient-Specific Goal (Individualized) Outcome: Ongoing, Progressing Flowsheets (Taken 02/28/2025 2100) Patient/Family-Specific Goals (Include Timeframe): pt will not fall Individualized Care Needs: safety Anxieties, Fears or Concerns: pain Note: Pt has AKA and has not fallen out of bed. Pain has been managed as well. Problem: Adult Inpatient Plan of Care Goal: Optimal Comfort and Wellbeing Intervention: Monitor Pain and Promote Comfort Flowsheets (Taken 02/27/2025 1235 by Daniela Carroll APRN, FREDERICK) Pain Management Interventions: medication (see MAR) * Progress Notes - Madonna Singleton MD - 02/28/2025 3:39 PM EDT Subjective Lying comfortably in the bed denied fever chills chest pain, saturating well on room air, underwentdental procedure today. Review of Systems As above. Objective Vitals Temp: [36.3 ??C (97.4 ??F)-36.7 ??C (98.1 ??F)] 36.4 ??C (97.6 ??F) Heart Rate: [57-73] 65 Resp: [17-20] 18 BP: (107-138)/(63-83) 117/70 Physical Exam HENT: Head: Normocephalic. Cardiovascular: Rate and Rhythm: Normal rate and regular rhythm. Heart sounds: Normal heart sounds. Pulmonary: Effort: Pulmonary effort is normal. Neurological: Mental Status: She is alert. Assessment & Plan Sepsis (CMS/HCC) 64 y.o. female with PMHx significant for CAD s/p PCI, ICM w/ LVEF 35-40%, CVA w/ residual L-sided deficits s/p ICA stents, Fibromyalgia, Left AKA, insulin dependent T2DM, HTN, HLD, prior breast cancer s/p mastectomy, COPD, recurrent UTI's s/p cystoscopy w/ bilateral retrograde pyelogram w/ bilateral ureteral stent placement 01/31/25 with urology presenting from OSH with AHRF and AMS. Pt was intubated for airway protection on arrival to ED for GSC of 7. Pt was found to be positive for Rhinovirus and had a negative infectious workup. She was extubated to AK w/o complications on 02/24/25. Currently saturating well on Acute hypoxic respiratory failure requiring MV iso viral pneumonia with Rhinovirus c/b suspected OHS, improving She was hypoxic on arrival to OSH w/ SpO2 88% on [address] PE OSH no evidence of PE, diffuse bilateral ground glass opacifications Her initial VBG 7.28/60/4, post-intubation VBG 7.33/49/27, PCR + for Rhinovirus Her urine strep/legionella negative, PAL MURF, Bcx NGTD S/p extubation 02/24, [place] for SPO2 92%+ PLAN: Supportive care for viral pneumonia iso + Rhinovirus Wean O2 as tolerated, goal O2% is > 88% Continue dulera and at d/c can resume Breo Left Upper Molar Pain: Abnormal Dentition: Can see multiple cavities and very poor dentition along with broke molar, causing pt pain for the last 2 weeks Consulted OMFS for evaluation, Follow with recs. Neurogenic bladder c/b hydronephrosis and hydroureter c/b CKD stage 3b Non-oliguric GEOVANNI with Disorder of Fluid and Electrolytes, resolved Baseline Scr 1.6-1.8 Has likely prerenal, given bilateral hydronephrosis is chronic, 01/31 underwent cystoscopy w/ bilateral retrograde pyelogram and bilateral ureteral stent placement for neurogenic bladder with hematuria, stents left in place on strings with parekh catheter, pt instructed to remove 02/[address] OSH bilateral hydronephrosis and hydroureter present, no evidence of stents. UA OSH + leuks and bacteria with cloudy urine, repeat UA at on arrival, shows no bacteria, + leuks, pyuria, negative nitrite; likely contaminated as parekh leaking poor and pt likely colonized and no leukocytosis, Ucx normal jesus PLAN: strict I&O, renally dose medications, avoid nephrotoxic agents caution with IV fluids as EF 35% Hematuria resolved, will monitor renal function and volume status consulted urology for parekh management, now pt w/o parekh, using external cath resumed home meds continue Mirabegron HFrEF 2/2 [facility] - 11/2024 LVEF 35-40% - Current GDMT: coreg 12.5mg BID, SGLT2i contraindicated 2/2 recurrent UTIs, hyperK precludes spironolactone - evaluated by cardiology 10/2024 - NT-proBNP 1,542 PLAN: - patient dose not appear hypervolemic on exam, holding diuresis at this time - resumed coreg and increased dose to 25mg BID for more optimal BP management ICA stenosis s/p L ICA stent w/ Hx of CVA -Xarelto and Plavix on home meds - resume plavix and discontinue xarelto - Pt informed me she was started on this after her stroke (appears to be Triple therapy that was never discontinued). She denied any history of atrial fibrillation. Telemetry had flagged her for afibbut EKG reveals low voltage p waves with RBBB. Her HAS-BLED score is 4pts (a 9% risk of bleed) which is high risk for bleed and not recommended to have DOAC if not indicated. At this time we will discontinue the xarelto indefinitely Resolved Conditions this admission: Hypovolemic Hyponatremia, resolved - baseline Na 130-135 - Na 120 at OSH, 125 on arrival to [facility] - Serum osm wnl, urine osm 408 with Na 31 PLAN: -Na 132 02/24 Acute Encephalopathy, resolved - metabolic vs toxic from cymbalta withdrawal, likely etiology is multifactorial in combination with hyponatremia and viral pna - was told to stop 90mg of Cymbalta on 02/20/25, no evidence of taper in for this - monitored serum Na per below - weaned sedation as tolerated to continue to assess mentation Elevated alkaline phophatase, resolved - AST 13, ALT 19, alk phos 144 ->105 Chronic conditions not being actively addressed during this admission: #Breast cancer s/p mastectomy: holding anastrazole pending med rec #CAD s/p PCI: atorvastatin #CVA w/ residual L sided deficits: atorvastatin, Plavix #T2DM: A1c is 9.2%, on ssi, resume home glargine when eating PO #Chronic Pain: resumed home meds today F: soft and bite sized, COUNTY TAX ASSESSOR eval Code Status: Assume Full Medically Ready for Discharge: * Progress Notes - Anthony Vaughn - 02/28/2025 11:11 AM EDT Case Management Adult Progress Note Eileen May 64 y.o. female CSN: [id number] Admission: 02/22/2025 6:13 PM Primary Problem: Sepsis (CMS/HCC) Anticipated Discharge Date: TBD Has Discharge Plans Changed? No Additional Comments Plan of care reviewed with Pt's care team; Pt is not medically ready for discharge. Dental extraction planned for today. Anticipate discharge readiness tomorrow. Pt is a resident at [facility], [place]. SW sent updated notes to Pt's facility via [facility] and verified Pt can return when ready. Anticipate Pt needing [facility] transport arranged upon discharge. Anthony Vaughn * Care Plan - Gayle Light RN - 02/28/2025 8:24 AM EDT Problem: Infection Goal: Absence of Infection Signs and Symptoms 02/28/2025 0824 by Gayle Light RN Outcome: Ongoing, Progressing 02/28/2025 08 by Gayle Light RN Outcome: Ongoing, Progressing Intervention: Prevent or Manage Infection Flowsheets Taken 02/28/2025 08 by Gayle Light RN Infection Management: aseptic technique maintained Fever Reduction/Comfort Measures: lightweight bedding lightweight clothing Taken 02/28/2025 0600 by Pat Young Isolation Precautions: precautions maintained droplet protective Problem: Adult Inpatient Plan of Care Goal: Plan of Care Review 02/28/2025 0824 by Gayle Light RN Outcome: Ongoing, Progressing Flowsheets Taken 02/28/2025 0816 by Gayle Light RN Progress: improving Outcome Evaluation: continue current POC Taken 02/22/20254 by Daniela Mcbride RN Plan of Care Reviewed With: patient 02/28/2025 08 by Gayle Light RN Flowsheets Taken 02/28/2025815 by Gayle Light RN Progress: improving Outcome Evaluation: continue current POC Taken 02/22/20252233 by Daniela Mcbride RN Plan of Care Reviewed With: patient Goal: Patient-Specific Goal (Individualized) 02/28/2025823 by Gayle Light RN Outcome: Ongoing, Progressing Flowsheets Taken 02/28/2025815 by Gayle Light RN Patient/Family-Specific Goals (Include Timeframe): Patient will remain free from injury/harm throughout shift. Individualized Care Needs: safety Taken 02/27/20252234 by Gerry Ambriz Anxieties, Fears or Concerns: pain 02/28/2025815 by Gayle Light RN Flowsheets Taken 02/28/2025815 by Gayle Light RN Patient/Family-Specific Goals (Include Timeframe): Patient will remain free from injury/harm throughout shift. Individualized Care Needs: safety Taken 02/27/20252234 by Gerry Ambriz Anxieties, Fears or Concerns: pain Goal: Absence of Hospital-Acquired Illness or Injury Outcome: Ongoing, Progressing Intervention: Prevent Skin Injury 02/28/2025823 by Gayle Light RN Flowsheets Taken 02/28/2025 07 by Gayle Light RN Body Position: turned Taken 02/26/2025 1100 by Bassem Jay RN Skin Protection: incontinence pads utilized skin sealant/moisture barrier applied 02/28/2025815 by Gayle Light RN Flowsheets Taken 02/28/2025729 by Gayle Light RN Body Position: turned Taken 02/26/2025 1100 by Bassem Jay RN Skin Protection: incontinence pads utilized skin sealant/moisture barrier applied Intervention: Prevent and Manage VTE (Venous Thromboembolism) Risk 02/28/2025823 by Gayle Light RN Flowsheets (Taken 02/28/2025 0800) VTE Prevention/Management: right SCDs (sequential compression devices) on 02/28/2025815 by Gayle Light RN Flowsheets (Taken 02/28/2025 0800) VTE Prevention/Management: right SCDs (sequential compression devices) on Goal: Optimal Comfort and Wellbeing Outcome: Ongoing, Progressing Intervention: Monitor Pain and Promote Comfort 02/28/2025823 by Gayle Light RN Flowsheets (Taken 02/27/2025 1235 by Daniela Carroll APRN, DNP) Pain Management Interventions: medication (see MAR) 02/28/2025815 by Gayle Light RN Flowsheets (Taken 02/27/2025 1235 by Daniela Carroll APRN, DNP) Pain Management Interventions: medication (see MAR) Goal: Readiness for Transition of Care Outcome: Ongoing, Progressing Intervention: Mutually Develop Transition Plan 02/28/2025823 by Gayle Light RN Flowsheets Taken 02/28/2025815 by Gayle Light RN Discharge Facility/Level of Care Needs: rehabilitation facility Equipment Needed After Discharge: (unknown at this time) other (see comments) Current Outpatient/Agency/Support Group: inpatient rehabilitation facility OT,PT,COUNTY TAX ASSESSOR Anticipated Changes Related to Illness: inability to care for self Transportation Anticipated: medical transport Outpatient/Agency/Support Group Needs: inpatient rehabilitation facility Transportation Concerns: none Current Discharge Risk: physical impairment Concerns to be Addressed: basic needs discharge planning Readmission Within the Last 30 Days: previous discharge plan unsuccessful Patient/Family Anticipated Services at Transition: case fitter durable medical equipment rehabilitation services Patient/Family Anticipates Transition to: inpatient rehabilitation facility Taken 02/25/2025 1510 by Sarah Rand Equipment Currently Used at Home: cane, straight wheelchair, manual wheelchair, power 02/28/2025815 by Gayle Light RN Flowsheets Taken 02/28/2025815 by Gayle Light RN Discharge Facility/Level of Care Needs: rehabilitation facility Equipment Needed After Discharge: (unknown at this time) other (see comments) Current Outpatient/Agency/Support Group: inpatient rehabilitation facility OT,PT,COUNTY TAX ASSESSOR Anticipated Changes Related to Illness: inability to care for self Transportation Anticipated: medical transport Outpatient/Agency/Support Group Needs: inpatient rehabilitation facility Transportation Concerns: none Current Discharge Risk: physical impairment Concerns to be Addressed: basic needs discharge planning Readmission Within the Last 30 Days: previous discharge plan unsuccessful Patient/Family Anticipated Services at Transition: case fitter durable medical equipment rehabilitation services Patient/Family Anticipates Transition to: inpatient rehabilitation facility Taken 02/25/2025 1510 by Sarah Rand Equipment Currently Used at Home: cane, straight wheelchair, manual wheelchair, power Problem: Sepsis/Septic Shock Goal: Absence of Bleeding Outcome: Ongoing, Progressing Goal: Blood Glucose Level Within Target Range Outcome: Ongoing, Progressing Intervention: Optimize Glycemic Control 02/28/2025823 by Gayle Light RN Flowsheets (Taken 02/22/20252233 by Daniela Mcbride RN) Hyperglycemia Management: blood glucose monitored Hypoglycemia Management: blood glucose monitored 02/28/2025815 by Gayle Light RN Flowsheets (Taken 02/22/20252233 by Daniela Mcbride RN) Hyperglycemia Management: blood glucose monitored Hypoglycemia Management: blood glucose monitored Goal: Absence of Infection Signs and Symptoms Outcome: Ongoing, Progressing Intervention: Initiate Sepsis Management 02/28/2025823 by Gayle Light RN Flowsheets Taken 02/28/2025815 by Gayle Light RN Infection Management: aseptic technique maintained Taken 02/28/2025 0600 by Pat Young S Isolation Precautions: precautions maintained droplet protective Taken 02/24/20252002 by Daniela Mcbride RN Stabilization Measures: airway opened Taken 02/22/20252233 by Daniela Mcbride RN Infection Prevention: environmental surveillance performed 02/28/2025 08 by Gayle Light RN Flowsheets Taken 02/28/2025815 by Gayle Light RN Infection Management: aseptic technique maintained Taken 02/28/2025 0600 by MiguelsPat S Isolation Precautions: precautions maintained droplet protective Taken 02/24/20252002 by Daniela Mcbride RN Stabilization Measures: airway opened Taken 02/22/20252233 by Daniela Mcbride RN Infection Prevention: environmental surveillance performed Intervention: Promote Stabilization 02/28/2025823 by Gayle Light RN Flowsheets Taken 02/28/2025815 by Gayle Light RN Fluid/Electrolyte Management: fluids adjusted Fever Reduction/Comfort Measures: lightweight bedding lightweight clothing Taken 02/23/2025 1254 by Temi Mao RN Lung Protection Measures: fluid excess minimized 02/28/2025 08 by Gayle Light RN Flowsheets Taken 02/28/2025815 by Gayle Light RN Fluid/Electrolyte Management: fluids adjusted Fever Reduction/Comfort Measures: lightweight bedding lightweight clothing Taken 02/23/2025 1254 by Temi Mao RN Lung Protection Measures: fluid excess minimized Intervention: Promote Recovery 02/28/2025 08 by Gayle Light RN Flowsheets Taken 02/28/2025 08 by Gayle Light RN Airway/Ventilation Management: airway patency maintained calming measures promoted oxygen therapy provided position adjusted Sleep/Rest Enhancement: consistent schedule promoted natural light exposure provided regular sleep/rest pattern promoted relaxation techniques promoted Taken 02/28/2025 06 by Pat Young Activity Management: activity adjusted per tolerance 02/28/2025815 by Gayle Lgiht RN Flowsheets (Taken 02/28/2025 08) Airway/Ventilation Management: airway patency maintained calming measures promoted oxygen therapy provided position adjusted Sleep/Rest Enhancement: consistent schedule promoted natural light exposure provided regular sleep/rest pattern promoted relaxation techniques promoted Problem: Oral Intake Inadequate Goal: Improved Oral Intake Outcome: Ongoing, Progressing Intervention: Promote and Optimize Oral Intake 02/28/2025823 by Gayle Light RN Flowsheets (Taken 02/25/20251911 by Bassem Jay, RN) Oral Nutrition Promotion: physical activity promoted Nutrition Interventions: diet adjusted food preferences provided 02/28/2025815 by Gayle Light RN Flowsheets (Taken 02/25/20251911 by Bassem Jay, RN) Oral Nutrition Promotion: physical activity promoted Nutrition Interventions: diet adjusted food preferences provided Problem: Mobility Impairment Goal: Optimal Mobility Outcome: Ongoing, Progressing Intervention: Optimize Mobility 02/28/2025823 by Gayle Light RN Flowsheets Taken 02/28/2025 06 by Pat Young Activity Management: activity adjusted per tolerance Taken 02/27/2025 1435 by Daniela Carroll APRN, DNP Positioning/Transfer Devices: pillows 02/28/2025 08 by Gayle Light RN Flowsheets Taken 02/28/2025 0600 by Pat Young Activity Management: activity adjusted per tolerance Taken 02/27/2025 1435 by Daniela Carroll APRN, DNP Positioning/Transfer Devices: pillows Problem: Self-Care Deficit Goal: Improved Ability to Complete Activities of Daily Living Outcome: Ongoing, Progressing Intervention: Promote Activity and Functional [place] Flowsheets Taken 02/28/2025 0816 by Gayle Light RN Activity Assistance Provided: assistance, 2 people lift team assistance Adaptive Equipment Use: use encouraged Taken 02/26/2025 1750 by Bassem Jay RN Self-Care Promotion: independence encouraged Problem: Skin Injury Risk Increased Goal: Skin Health and Integrity Outcome: Ongoing, Progressing Intervention: Optimize Skin Protection Flowsheets Taken 02/28/2025 0816 by Gayle Light RN Pressure Reduction Techniques: frequent weight shift encouraged weight shift assistance provided Pressure Reduction Devices: positioning supports utilized specialty bed utilized Head of Bed (HOB) Positioning: HOB elevated Taken 02/26/2025 1100 by Bassem Jay RN Skin Protection: incontinence pads utilized skin sealant/moisture barrier applied Intervention: Promote and Optimize Oral Intake Flowsheets (Taken 02/25/2025 1912 by Bassem Jay RN) Oral Nutrition Promotion: physical activity promoted Nutrition Interventions: diet adjusted food preferences provided Problem: Fall Injury Risk Goal: Absence of Fall and Fall-Related Injury Outcome: Ongoing, Progressing Intervention: Identify and Manage Contributors Flowsheets Taken 02/26/2025 1750 by Bassem Jay RN Self-Care Promotion: independence encouraged Taken 02/23/2025 1254 by Temi Mao RN Medication Review/Management: medications reviewed high-risk medications identified Intervention: Promote Injury-Free Environment Flowsheets (Taken 02/28/2025 0600 by Pat Young) Safety Promotion/Fall Prevention: activity supervised clutter-free environment maintained fall prevention program maintained lighting adjusted room organization consistent safety round/check completed * Care Plan - Gerry Ambriz - 02/27/2025 10:34 PM EDT Problem: Infection Goal: Absence of Infection Signs and Symptoms Outcome: Ongoing, Progressing Intervention: Prevent or Manage Infection Flowsheets Taken 02/25/2025 1928 by Daniela Mcbride, RN Isolation Precautions: precautions maintained Taken 02/23/2025 1254 by Temi Mao RN Fever Reduction/Comfort Measures: lightweight bedding Taken 02/22/2025 2234 by Daniela Mcbride, RN Infection Management: aseptic technique maintained Problem: Adult Inpatient Plan of Care Goal: Patient-Specific Goal (Individualized) Outcome: Ongoing, Progressing Flowsheets (Taken 02/26/2025 0800 by Bassem Jay RN) Patient/Family-Specific Goals (Include Timeframe): patient pain will remain <4 during shift Individualized Care Needs: q2h turns Anxieties, Fears or Concerns: Pain Note: Pt pain level has been at a tolerable level. * Significant Event - Madonna Singleton MD - 02/27/2025 3:06 PM EDT 64 y.o. female with PMHx significant for CAD s/p PCI, ICM w/ LVEF 35-40%, CVA w/ residual L-sided deficits s/p ICA stents, Fibromyalgia, Left AKA, insulin dependent T2DM, HTN, HLD, prior breast cancer s/p mastectomy, COPD, recurrent UTI's s/p cystoscopy w/ bilateral retrograde pyelogram w/ bilateral ureteral stent placement 01/31/25 with urology presenting from OSH with AHRF and AMS. Pt was intubated for airway protection on arrival to ED for GSC of 7. Pt was found to be positive for Rhinovirus and had a negative infectious workup. She was extubated to AK w/o complications on 02/24/25. Mentating well back to baseline, schedule for dental procedure tomorrow * Progress Notes - Chuy Graham DO - 02/27/2025 2:56 PM EDT Images from the original note were not included. MICU PROGRESS NOTE Length of Stay: 5 Summary of Presentation: Eileen May is a 64 y.o. female with PMHx significant for CAD s/p PCI, ICM w/ LVEF 35-40%, CVA w/ residual L-sided deficits s/p ICA stents, Fibromyalgia, Left AKA, insulin dependent T2DM, HTN, HLD, prior breast cancer s/p mastectomy, COPD, recurrent UTI's s/p cystoscopy w/ bilateral retrograde pyelogram w/ bilateral ureteral stent placement 01/31/25 with urology presenting from OSH withAHRF and AMS. Pt was intubated for airway protection on arrival to ED for GSC of 7. Pt was foundto be positive for Rhinovirus and had a negative infectious workup. She was extubated to AK w/o complications on 02/24/25. Events of past 24 hours: - no acute events overnight Subjective: - patient seen and evaluated at bedside this morning. Pt pending downgrade still, eager to get her panorex and see if tooth will be extracted Review of Systems: A 14 point ROS was completed and reviewed and is otherwise negative except as per HPI Last Recorded Vitals Blood pressure (!) 144/52, pulse 61, temperature 36.6 ??C (97.9 ??F), temperature source Oral, resp. rate 14, height 1.626 m (5' 4.02 ), weight 98 kg (216 lb 0.8 oz), SpO2 92%. O2 Delivery Method: Nasal cannula Physical Exam Physical Exam Constitutional: General: She is not in acute distress. HENT: Head: Normocephalic. Nose: Comments: NC in place Mouth/Throat: Dentition: Abnormal dentition. Dental tenderness and dental caries present. Eyes: General: No scleral icterus. Right eye: No discharge. Left eye: No discharge. Extraocular Movements: Extraocular movements intact. Cardiovascular: Rate and Rhythm: Normal rate and regular rhythm. Pulmonary: Effort: Pulmonary effort is normal. Breath sounds: No wheezing or rales. Comments: On 2L NC Abdominal: General: Abdomen is flat. Palpations: Abdomen is soft. Tenderness: There is no abdominal tenderness. Musculoskeletal: Comments: S/p L AKA Skin: General: Skin is warm and dry. Findings: No rash. Neurological: Mental Status: She is alert and oriented to person, place, and time. Mental status is at baseline. Results: Lab Genie today CBC WBC ?? Hb ?? Plt ?? Hct ?? ANC ?? INR ??, PTT ??, Anti-Xa ?? BMP Na ?? Cl ?? BUN ?? Glu ?? K ?? Co2 ?? Cr ?? Ca ?? iCa ?? Mg ??, Phos ?? Lactate ?? LFT AST ?? AlkPhos ?? T Prot ?? ALK ?? Bili ?? Alb ?? D.Bili ?? Results from last 7 days Lab Units 02/22/252104 PH ART 7.45* PCO2 ART mm Hg 37 PO2 ART mm Hg 86 HCO3 ART mmol/L 25.7 BASE EXC ART mmol/L 1.7 Medications: atorvastatin, 40 mg, Oral, Nightly baclofen, 10 mg, Oral, TID carvedilol, 25 mg, Oral, BID clopidogrel, 75 mg, Oral, Daily DULoxetine, 60 mg, Oral, Daily Followed by [START ON 03/02/2025] DULoxetine, 30 mg, Oral, Daily fentaNYL, 1 patch, Transdermal, q72h heparin (porcine), 5,000 Units, Subcutaneous, q8h CLARI insulin glargine-yfgn, 30 Units, Subcutaneous, Nightly insulin lispro, 0-5 Units, Subcutaneous, TID with meals insulin lispro, 0-3 Units, Subcutaneous, Twice at night mirabegron ER, 50 mg, Oral, Daily mometasone-formoterol, 2 puff, Inhalation, BID pantoprazole, 40 mg, Oral, Daily pregabalin, 50 mg, Oral, Daily Current Continuous Medications[1] Current PRN Medications[2] Imaging (past 24h): I have personally reviewed and independently interpreted the following imaging and agree with the formal interpretation. XR Panorex Narrative: CLINICAL INDICATION: Odontogenic infection TECHNIQUE: XR PANOREX COMPARISON: None. FINDINGS: Rounded lucency in tooth #6. Aggressive destruction in the posterior aspect of tooth #31. [place] wear in tooth number 8, 9 and 23. No periapical lucency Impression: Dental caries in tooth #6 and 31 without abscess. CRITICAL RESULT: No. COMMUNICATION: Per this written report. Drafted by Lucas Cristobal MD on 02/27/2025 12:22 PM Final report signed by Lucas Cristobal MD on 02/27/2025 12:25 PM XR Panorex Result Date: 02/27/2025 Impression: Dental caries in tooth #6 and 31 without abscess. CRITICAL RESULT: No. COMMUNICATION: Per this written report. Drafted by Lucas Cristobal MD on 02/27/2025 12:22 PM Final report signed by Lucas Cristobal MD on 02/27/2025 12:25 PM Assessment and Plan Eileen May is a 64 y.o. female with PMHx significant for CAD s/p PCI, ICM w/ LVEF 35-40%, CVA w/ residual L-sided deficits s/p ICA stents, Fibromyalgia, Left AKA, insulin dependent T2DM, HTN, HLD, prior breast cancer s/p mastectomy, COPD, recurrent UTI's s/p cystoscopy w/ bilateral retrograde pyelogram w/ bilateral ureteral stent placement 01/31/25 with urology presenting from OSH withAHRF and AMS. Pt was intubated for airway protection on arrival to ED for GSC of 7. Pt was foundto be positive for Rhinovirus and had a negative infectious workup. She was extubated to AK w/o complications on 02/24/25. #Acute hypoxic respiratory failure requiring MV iso viral pneumonia with Rhinovirus c/b suspected OHS, improving - hypoxic on arrival to OSH w/ SpO2 88% on 2L - CTPE OSH no evidence of PE, diffuse bilateral ground glass opacifications - initial VBG 7.28/60/4, post-intubation VBG 7.33/49/27, PCR + for Rhinovirus - urine strep/legionella negative, PAL MURF, Bcx NGTD - S/p extubation 02/24, AK for SPO2 92%+ PLAN: - Supportive care for viral pneumonia iso + Rhinovirus - wean O2 as tolerated, goal O2% is > 88% - continue dulera and at d/c can resume Breo #Left Upper Molar Pain #Abnormal Dentition - can see multiple cavities and very poor dentition along with broke molr - causing pt pain for the last 2 weeks PLAN: - consulted OMFS for evaluation, they have plans for extraction, see OMFS note for full details - panorex already completed, Dental caries in tooth #6 and 31 without abscess #Neurogenic bladder c/b hydronephrosis and hydroureter c/b CKD stage 3b #Non-oliguric GEOVANNI with Disorder of Fluid and Electrolytes, resolved - baseline Scr 1.6-1.8 - likely prerenal, given bilateral hydronephrosis is chronic - 01/31 underwent cystoscopy w/ bilateral retrograde pyelogram and bilateral ureteral stent placement for neurogenic bladder with hematuria - stents left in place on strings with parekh catheter, pt instructed to remove 02/04 at home - CT OSH bilateral hydronephrosis and hydroureter present, no evidence of stents - UA OSH + leuks and bacteria with cloudy urine - repeat UA at on arrival, shows no bacteria, + leuks, pyuria, negative nitrite; likely contaminated as parekh leaking poor and pt likely colonized and no leukocytosis, Ucx normal jesus PLAN: - strict I&O, renally dose medications, avoid nephrotoxic agents - caution with IV fluids as EF 35% - Hematuria resolved, will monitor renal function and volume status - consulted urology for parekh management, now pt w/o parekh, using external cath - resumed home meds - continue Mirabegron #HFrEF 2/2 [facility] - 11/2024 LVEF 35-40% - Current GDMT: coreg 12.5mg BID, SGLT2i contraindicated 2/2 recurrent UTIs, hyperK precludes spironolactone - evaluated by cardiology 10/2024 - NT-proBNP 1,542 PLAN: - patient dose not appear hypervolemic on exam, holding diuresis at this time - resumed coreg and increased dose to 25mg BID for more optimal BP management #ICA stenosis s/p L ICA stent w/ Hx of CVA -Xarelto and Plavix on home meds - resume plavix and discontinue xarelto - Pt informed me she was started on this after her stroke (appears to be Triple therapy that was never discontinued). She denied any history of atrial fibrillation. Telemetry had flagged her for afibbut EKG reveals low voltage p waves with RBBB. Her HAS-BLED score is 4pts (a 9% risk of bleed) which is high risk for bleed and not recommended to have DOAC if not indicated. At this time we will discontinue the xarelto indefinitely Resolved Conditions this admission: #Hypovolemic Hyponatremia, resolved - baseline Na 130-135 - Na 120 at OSH, 125 on arrival to [facility] - Serum osm wnl, urine osm 408 with Na 31 PLAN: -Na 132 02/24 #Acute Encephalopathy, resolved - metabolic vs toxic from cymbalta withdrawal, likely etiology is multifactorial in combination with hyponatremia and viral pna - was told to stop 90mg of Cymbalta on 02/20/25, no evidence of taper in for this - monitored serum Na per below - weaned sedation as tolerated to continue to assess mentation #Elevated alkaline phophatase, resolved - AST 13, ALT 19, alk phos 144 ->105 Chronic conditions during this admission: #Breast cancer s/p mastectomy: holding anastrazole pending med rec #CAD s/p PCI: atorvastatin #CVA w/ residual L sided deficits: atorvastatin, Plavix #T2DM: A1c is 9.2%, on ssi, resume home glargine at 30u instead of her full regimen #Chronic Pain: resumed home meds today F: soft and bite sized, [employer] eval A: oxy, acetaminophen, fentanyl patch (home dose), prn q3 dilaudid S: - T: subQ Heparin H: >30 U: PPI G: SSI + glargine 30u S: - B: - I: external urinary cather, PIV x3 D: - Dispo: downgrade to acute today Code Status: Assume Full These diagnoses are medical relevant to the treatment plan and are present on admission: Fluid & Electrolyte Disorders with the following disturbances: Acidosis Malnutrition: Unspecified protein-calorie malnutrition Please note that all recommendations should be considered preliminary until this note is cosigned by the attending physician. Patient was seen and plan discussed with Dr. Hill. - Chuy Graham DO Internal Medicine PGY-2 Pager [phone]; Epic Chat preferred Procedures [1] [2] PRN medications: acetaminophen, benzocaine, glucose OR dextrose 10 % OR dextrose 10 % OR glucagon (human recombinant), ondansetron ODT OR ondansetron OR ondansetron, oxyCODONE, [COMPLETED] Insert peripheral IV AND [COMPLETED] Saline lock IV AND sodium chloride Cosigned by Ludy Hill MD at 02/27/2025 3:33 PM EDT Associated attestation - Ludy Hill MD - 02/27/2025 3:33 PM EDT I saw and evaluated the patient with the resident/fellow. I discussed the case with the resident/fellow and agree with the findings and plan as documented. * Transfer of Care - JewelsrachaelChuy barnett DO - 02/27/2025 2:50 PM EDT Images from the original note were not included. ICU Transfer Note Summary of Hospital Course: (Include HPI and ICU course): Eileen May is a 64 y.o. female with PMHx significant for CAD s/p PCI, ICM w/ LVEF 35-40%, CVA w/ residual L-sided deficits s/p ICA stents, Fibromyalgia, Left AKA, insulin dependent T2DM, HTN, HLD, prior breast cancer s/p mastectomy, COPD, recurrent UTI's s/p cystoscopy w/ bilateral retrograde pyelogram w/ bilateral ureteral stent placement 01/31/25 with urology presenting from OSH withAHRF and AMS. Pt was intubated for airway protection on arrival to ED for GSC of 7. Pt was foundto be positive for Rhinovirus and had a negative infectious workup. She was extubated to AK w/o complications on 02/24/25. During her hospital course it was noted she was having significant tooth pain and pt notes this hasbeen occurring for 2 weeks. OMFS was consulted and panorex obtained. OMFS will plan for extraction tomorrow, and already noted there is not a need to hold the plavix for single tooth extraction. Pt is hemodynamically stable and optimized for downgrade. Patient is being transferred from ICU team to [facility] Team 14 Major Active Problems: Currently active problems from ICU admission with plan and follow up (include antimicrobial plan, duration): #Acute hypoxic respiratory failure requiring MV iso viral pneumonia with Rhinovirus c/b suspected OHS, improving - hypoxic on arrival to OSH w/ SpO2 88% on 2L, not on oxygen at baseline and not expected to need it at discharge - CTPE OSH no evidence of PE, diffuse bilateral ground glass opacifications - initial VBG 7.28/60/4, post-intubation VBG 7.33/49/27, PCR + for Rhinovirus - urine strep/legionella negative, PAL MURF, Bcx NGTD - S/p extubation 02/24, NC for SPO2 92%+ PLAN: - Supportive care for viral pneumonia iso + Rhinovirus - wean O2 as tolerated, goal O2% is > 88% - continue dulera and at d/c can resume Breo #Left Upper Molar Pain #Abnormal Dentition - can see multiple cavities and very poor dentition along with broke molr - causing pt pain for the last 2 weeks PLAN: - consulted OMFS for evaluation, they have plans for extraction, see OMFS note for full details - panorex already completed, Dental caries in tooth #6 and 31 without abscess #Neurogenic bladder c/b hydronephrosis and hydroureter c/b CKD stage 3b - baseline Scr 1.6-1.8 - likely prerenal, given bilateral hydronephrosis is chronic - 01/31 underwent cystoscopy w/ bilateral retrograde pyelogram and bilateral ureteral stent placement for neurogenic bladder with hematuria - stents left in place on strings with parekh catheter, pt instructed to remove 02/04 at home - CT OSH bilateral hydronephrosis and hydroureter present, no evidence of stents - UA OSH + leuks and bacteria with cloudy urine - repeat UA at on arrival, shows no bacteria, + leuks, pyuria, negative nitrite; likely contaminated as parekh leaking poor and pt likely colonized and no leukocytosis, Ucx normal jesus PLAN: - strict I&O, renally dose medications, avoid nephrotoxic agents - caution with IV fluids as EF 35% - Hematuria resolved, will monitor renal function and volume status - consulted urology for parekh management, now pt w/o parekh, using external cath - resumed home meds - continue Mirabegron #HFrEF / [facility] - 11/2024 LVEF 35-40% - Current GDMT: coreg 12.5mg BID, SGLT2i contraindicated 2/2 recurrent UTIs, hyperK precludes spironolactone - evaluated by cardiology 10/2024 - NT-proBNP 1,542 PLAN: - patient dose not appear hypervolemic on exam, holding diuresis at this time - resumed coreg and increased dose to 25mg BID for more optimal BP management #ICA stenosis s/p L ICA stent w/ Hx of CVA -Xarelto and Plavix on home meds - resume plavix and discontinue xarelto - Pt informed me she was started on this after her stroke (appears to be Triple therapy that was never discontinued). She denied any history of atrial fibrillation. Telemetry had flagged her for afibbut EKG reveals low voltage p waves with RBBB. Her HAS-BLED score is 4pts (a 9% risk of bleed) which is high risk for bleed and not recommended to have DOAC if not indicated. At this time we will discontinue the xarelto indefinitely Chronic conditions not being actively addressed during this admission: #Breast cancer s/p mastectomy: holding anastrazole pending med rec #CAD s/p PCI: atorvastatin #CVA w/ residual L sided deficits: atorvastatin, Plavix #T2DM: A1c is 9.2%, on ssi, resume home glargine at 30u instead of her full regimen #Chronic Pain: resumed home meds today F: soft and bite sized, [employer] eval A: oxy, acetaminophen, fentanyl patch (home dose), prn q3 dilaudid S: - T: subQ Heparin H: >30 U: PPI G: SSI + glargine 30u S: - B: - I: external urinary cather, PIV x3 D: - Major Resolved Problems: ICU problems that resolved during admission but are important to be aware of: #Hypovolemic Hyponatremia, resolved - baseline Na 130-135 - Na 120 at OSH, 125 on arrival to [facility] - Serum osm wnl, urine osm 408 with Na 31 PLAN: -Na 132 7/ #Non-oliguric GEOVANNI with Disorder of Fluid and Electrolytes, resolved - Cr baseline 1.6 -1.8 #Acute Encephalopathy, resolved - metabolic vs toxic from cymbalta withdrawal, likely etiology is multifactorial in combination with hyponatremia and viral pna - was told to stop 90mg of Cymbalta on 02/20/25, no evidence of taper in for this - monitored serum Na per below - weaned sedation as tolerated to continue to assess mentation #Elevated alkaline phophatase, resolved - AST 13, ALT 19, alk phos 144 ->105 Antibiotics being administered: none Patient was intubated during this stay. Date of extubation 02/24/25 Patient was not in shock during this stay Other Follow up items (Studies,consults, labs, imaging): none Patient's condition at Transfer: hemodynamically stable Patient's oxygen requirement is currently 2L NC and is not expected to need oxygen at DC (should include both device and amount. If patient requires new or changed Bipap/CPAP, include here) Patient does not have a parekh Patient has following lines/tubes: Indwelling Catheter/device: external urinary cather, PIV x3 Patient has had encephalopathy Patient does not require telemetry PT is following patient Patient's current diet is: Dietary Orders (From admission, onward) Start Ordered 02/26/25 1501 Adult diet Diet texture: Soft & Bite Sized 6; Carbohydrate restriction: Consistent Carb 2 (80 gm max/meal) (Adult Diet Panel) Diet effective now References: IDDSI Diet Texture Guide Question Answer Comment Diet texture Soft & Bite Sized 6 Carbohydrate restriction: Consistent Carb 2 (80 gm max/meal) 02/26/25 1500 02/25/25 1233 Oral nutrition supplements Until discontinued Question Answer Comment Supplement frequency: Lunch Supplement frequency: Dinner Lunch supplement: [place] Quantity for Lunch of [place] Packet One Dinner supplement: Tony Fruit Punch Quantity for Dinner of Tony Fruit Punch Packet One 02/25/25 1232 02/25/25 1232 Oral nutrition supplements Until discontinued Question Answer Comment Supplement frequency: All meals All meals supplement: Boost Glucose Control Vanilla Quantity for All Meals of Boost Glucose Control Vanilla One 02/25/25 1232 DVT Prophylaxis is subcutaneous heparin Patient Disposition: The current anticipated discharge disposition is SNF in approximately 3 days pending AHRF resolution and O2 requirements Final PT/OT recommendations, repeat scope, chest tube removal, end of abx course etc): Still pending Post hospital follow up appointments needed are: No follow-ups on file. Handoff information: [place] exam findings at the time of transfer are: Physical Exam Constitutional: General: She is not in acute distress. HENT: Head: Normocephalic. Nose: Comments: NC in place Eyes: General: No scleral icterus. Right eye: No discharge. Left eye: No discharge. Extraocular Movements: Extraocular movements intact. Cardiovascular: Rate and Rhythm: Normal rate and regular rhythm. Pulmonary: Effort: Pulmonary effort is normal. Breath sounds: No wheezing or rales. Comments: On 2L NC Abdominal: General: Abdomen is flat. Palpations: Abdomen is soft. Tenderness: There is no abdominal tenderness. Musculoskeletal: Comments: S/p L AKA Skin: General: Skin is warm and dry. Findings: No rash. Neurological: Mental Status: She is alert and oriented to person, place, and time. Mental status is at baseline. The patient primary contact is: Val Howell (Sister) Patient's HCPOA: is not same as above, pt makes own medical decisions I have spoken with and given verbal consent checkout to the primary receiving provider: Dr Mani MD - Chuy Graham DO Internal Medicine PGY-2 Pager [phone]; Epic Chat preferred * Care Plan - Daniela Carroll APRN, DNP - 02/27/2025 2:37 PM EDT Problem: Adult Inpatient Plan of Care Goal: Plan of Care Review Outcome: Ongoing, Progressing Problem: Sepsis/Septic Shock Goal: Blood Glucose Level Within Target Range Outcome: Ongoing, Progressing Intervention: Optimize Glycemic Control Flowsheets (Taken 02/22/2025 2234 by Daniela Mcbride RN) Hyperglycemia Management: blood glucose monitored Hypoglycemia Management: blood glucose monitored Goal: Absence of Infection Signs and Symptoms Outcome: Ongoing, Progressing Intervention: Promote Recovery Flowsheets (Taken 02/27/2025 1435) Activity Management: activity adjusted per tolerance Sleep/Rest Enhancement: consistent schedule promoted Problem: Oral Intake Inadequate Goal: Improved Oral Intake Outcome: Ongoing, Progressing * Care Plan - Daniela Mcbride RN - 02/26/2025 8:12 PM EDT Problem: Infection Goal: Absence of Infection Signs and Symptoms Outcome: Ongoing, Progressing Problem: Adult Inpatient Plan of Care Goal: Plan of Care Review Outcome: Ongoing, Progressing Flowsheets Taken 02/24/20252002 Progress: improving Taken 02/22/20252233 Plan of Care Reviewed With: patient Goal: Patient-Specific Goal (Individualized) Outcome: Ongoing, Progressing Flowsheets (Taken 02/26/2025 0800 by Bassem Jay, JIMI) Patient/Family-Specific Goals (Include Timeframe): patient pain will remain <4 during shift Individualized Care Needs: q2h turns Anxieties, Fears or Concerns: Pain Goal: Absence of Hospital-Acquired Illness or Injury Outcome: Ongoing, Progressing Intervention: Prevent Skin Injury Flowsheets Taken 02/26/2025 1600 by Bassem Jay, RN Body Position: right turned Taken 02/26/2025 1100 by Bassem Jay, RN Skin Protection: incontinence pads utilized skin sealant/moisture barrier applied Intervention: Prevent and Manage VTE (Venous Thromboembolism) Risk Flowsheets (Taken 02/26/2025 1600 by Bassem Jay, RN) VTE Prevention/Management: right SCDs (sequential compression devices) on Goal: Optimal Comfort and Wellbeing Outcome: Ongoing, Progressing Intervention: Monitor Pain and Promote Comfort Flowsheets (Taken 02/26/2025 1940) Pain Management Interventions: medication (see MAR) Goal: Readiness for Transition of Care Outcome: Ongoing, Progressing Intervention: Mutually Develop Transition Plan Flowsheets Taken 02/25/2025 1510 by Sarah Rand Equipment Currently Used at Home: cane, straight wheelchair, manual wheelchair, power Taken 02/24/2025 2003 by Daniela Mcbride RN Current Outpatient/Agency/Support Group: assisted living facility Concerns to be Addressed: no discharge needs identified Taken 02/23/2025 1254 by Temi Mao RN Readmission Within the Last 30 Days: no previous admission in last 30 days Problem: Sepsis/Septic Shock Goal: Absence of Bleeding Outcome: Ongoing, Progressing Intervention: Monitor and Manage Bleeding Flowsheets (Taken 02/24/2025 0914 by Delroy Bernal RN) Bleeding Precautions: monitored for signs of bleeding Goal: Blood Glucose Level Within Target Range Outcome: Ongoing, Progressing Intervention: Optimize Glycemic Control Flowsheets (Taken 02/22/2025 2234) Hyperglycemia Management: blood glucose monitored Hypoglycemia Management: blood glucose monitored Goal: Absence of Infection Signs and Symptoms Outcome: Ongoing, Progressing Intervention: Initiate Sepsis Management Flowsheets Taken 02/25/2025 1928 Isolation Precautions: precautions maintained Taken 02/24/20252002 Stabilization Measures: airway opened Taken 02/22/20254 Infection Management: aseptic technique maintained Infection Prevention: environmental surveillance performed Intervention: Promote Stabilization Flowsheets Taken 02/24/20252002 by Daniela Mcbride RN Fluid/Electrolyte Management: electrolyte-binding therapy initiated Taken 02/23/2025 1254 by Temi Mao RN Lung Protection Measures: fluid excess minimized Fever Reduction/Comfort Measures: lightweight bedding Intervention: Promote Recovery Flowsheets Taken 02/24/2025 0800 by Delroy Bernal RN Activity Management: activity adjusted per tolerance Taken 02/23/2025 1254 by Temi Mao RN Sleep/Rest Enhancement: consistent schedule promoted natural light exposure provided relaxation techniques promoted Taken 02/23/2025 1021 by Janis Angulo Airway/Ventilation Management: pulmonary hygiene promoted oxygen therapy provided airway patency maintained position adjusted calming measures promoted positive pressure ventilation provided humidification applied Problem: Oral Intake Inadequate Goal: Improved Oral Intake Outcome: Ongoing, Progressing Intervention: Promote and Optimize Oral Intake Flowsheets (Taken 02/25/2025 1912 by Bassem Jay, RN) Oral Nutrition Promotion: physical activity promoted Nutrition Interventions: diet adjusted food preferences provided Problem: Mobility Impairment Goal: Optimal Mobility Outcome: Ongoing, Progressing Intervention: Optimize Mobility Flowsheets (Taken 02/24/2025 0800 by Delroy Bernal, RN) Activity Management: activity adjusted per tolerance Problem: Self-Care Deficit Goal: Improved Ability to Complete Activities of Daily Living Outcome: Ongoing, Progressing Intervention: Promote Activity and Functional [place] Flowsheets (Taken 02/26/2025 1750 by Bassem Jay, RN) Activity Assistance Provided: assistance refused education provided Self-Care Promotion: independence encouraged * Care Plan - Bassem Jay RN - 02/26/2025 5:52 PM EDT Problem: Infection Goal: Absence of Infection Signs and Symptoms Outcome: Ongoing, Progressing Intervention: Prevent or Manage Infection Flowsheets Taken 02/25/20258 by Daniela Mcbride RN Isolation Precautions: precautions maintained Taken 02/23/2025 1254 by Temi Mao RN Fever Reduction/Comfort Measures: lightweight bedding Taken 02/22/20252233 by Daniela Mcbride RN Infection Management: aseptic technique maintained Problem: Adult Inpatient Plan of Care Goal: Plan of Care Review Outcome: Ongoing, Progressing Flowsheets Taken 02/24/20252002 by Daniela Mcbride RN Progress: improving Taken 02/22/20252233 by Daniela Mcbride RN Plan of Care Reviewed With: patient Goal: Patient-Specific Goal (Individualized) Outcome: Ongoing, Progressing Flowsheets (Taken 02/26/2025 0800) Patient/Family-Specific Goals (Include Timeframe): patient pain will remain <4 during shift Individualized Care Needs: q2h turns Anxieties, Fears or Concerns: Pain Goal: Absence of Hospital-Acquired Illness or Injury Outcome: Ongoing, Progressing Intervention: Prevent Skin Injury Flowsheets Taken 02/26/2025 1600 Body Position: right turned Taken 02/26/2025 1100 Skin Protection: incontinence pads utilized skin sealant/moisture barrier applied Intervention: Prevent and Manage VTE (Venous Thromboembolism) Risk Flowsheets (Taken 02/26/2025 1600) VTE Prevention/Management: right SCDs (sequential compression devices) on Goal: Optimal Comfort and Wellbeing Outcome: Ongoing, Progressing Intervention: Monitor Pain and Promote Comfort Flowsheets (Taken 02/26/2025 1134) Pain Management Interventions: medication (see MAR) Goal: Readiness for Transition of Care Outcome: Ongoing, Progressing Intervention: Mutually Develop Transition Plan Flowsheets Taken 02/25/2025 1510 by Sarah Rand Equipment Currently Used at Home: cane, straight wheelchair, manual wheelchair, power Taken 02/24/20252002 by Daniela Mcbride, JIMI Current Outpatient/Agency/Support Group: assisted living facility Concerns to be Addressed: no discharge needs identified Taken 02/23/2025 1254 by Temi Mao, RN Readmission Within the Last 30 Days: no previous admission in last 30 days Problem: Sepsis/Septic Shock Goal: Absence of Bleeding Outcome: Ongoing, Progressing Goal: Blood Glucose Level Within Target Range Outcome: Ongoing, Progressing Goal: Absence of Infection Signs and Symptoms Outcome: Ongoing, Progressing Problem: Oral Intake Inadequate Goal: Improved Oral Intake Outcome: Ongoing, Progressing Intervention: Promote and Optimize Oral Intake Flowsheets (Taken 02/25/2025 1912) Oral Nutrition Promotion: physical activity promoted Nutrition Interventions: diet adjusted food preferences provided Problem: Mobility Impairment Goal: Optimal Mobility Outcome: Ongoing, Progressing Intervention: Optimize Mobility Flowsheets (Taken 02/24/2025 0800 by Delroy Bernal, RN) Activity Management: activity adjusted per tolerance Problem: Self-Care Deficit Goal: Improved Ability to Complete Activities of Daily Living Outcome: Ongoing, Progressing Intervention: Promote Activity and Functional [place] Flowsheets (Taken 02/26/2025 1750) Activity Assistance Provided: assistance refused education provided Self-Care Promotion: independence encouraged * Progress Notes - Eileen Ortega - 02/26/2025 11:16 AM EDT Physical Therapy Evaluation Patient Name: Eileen May Today's Date: 02/26/2025 PT Discharge Recommendations: Subacute rehab Equipment Recommended: Defer to facility History Eileen May is 64 y.o. female admitted 02/22/2025 for work-up of Sepsis ([facility]). Problem List Active Hospital Problems Diagnosis Date Noted Sepsis ([facility]) 02/22/2025 Procedures Past 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 Patient has a past medical history of Anxiety, Breast cancer, Cerebral infarction, unspecified ([facility]), COPD (chronic obstructive pulmonary disease) ([facility]), Depression, Fibromyalgia, History of falling, Hypertension, Personal history of other diseases of the musculoskeletal system and connective tissue, Personal history of other endocrine, nutritional and metabolic disease, Personal history of other specified conditions, and Personal history of urinary (tract) infections. Past Surgical History Patient has a past surgical history that includes Mastectomy (N/A); Breast surgery (N/A); Cholecystectomy (N/A); Breast surgery (N/A); Kidney surgery (N/A); Knee surgery (N/A); and Shoulder surgery (Right). Precautions Medical Precautions: Fall precautions Subjective RN and pt agreeable to therapy session. Pt states I am not getting in the chair. I just like lyingin the bed and relaxing. Participants in Care Family/Caregiver Present: No Community Recreation Coordinator: Not Applicable Presentation Oxygen Therapy: None (Room air) Lines and Tubes: Telemetry Female External Urinary Catheter 02/25/251951 (Active) Peripheral IV 02/22/25 Anterior;Left Forearm (Active) Peripheral IV 02/22/25 Right Antecubital (Active) Peripheral IV 02/22/25 Posterior;Right Wrist (Active) Pre-Session: Lines intact, Head of bed elevated, Supine, Side lying left, Bed alarm Pre-Session Comments: Patient and RN agreeable to PT evaluation and treatment as tolerated Post-Session: Supine, Head of bed elevated, RN notified, Lines intact, Call light in reach, Sittingin chair Post-Session Comments: SCD on RLE; Patient positioned for safety and comfort at end of session; RN aware Home Living/Set-up Home Type: retirement facility Home Adaptive Equipment: Wheelchair-manual, Hospital bed Home Layout: One level Bathroom: Tub/Shower: (sponge bath at baseline) Bathroom: Toilet: (reports using breifs when out of bed and uses bedpan for majority of toileting) Home Living Comments: Patient reports requiring 2 people for stand pivot transfer to wheelchair at baseline; reports she spends half of her day in her chair/half of her day in her bed Prior Level of Function Receives Help From: Caregiver Level of Mobility: Wheelchair/Scooter Mobility [place]: Independent wheelchair propulsion History of Falls: No ADL Performance: Needs assistance Bathing: Needs assist Upper Body Dressing: Independent Lower Body Dressing: Needs assist Grooming: Independent Toileting: Needs assist Eating: Independent Home Management Skills: Unable to perform Patient/Family Goals Return home at [facility]. Objective Pain Pt reports having some tooth pain however, does not rate pain on 0-10 scale. Pt reports nausea and RN notified and administering nausea medication during session. Pt placed in position of comfort at end of of session. Delirium Screening Syed Agitation Sedation Scale (RASS): Alert and calm Confusion Assessment Method-ICU (CAM-ICU/PCAM-ICU) Feature 3: Altered Level of Consciousness: Negative Cognition Overall Cognitive Status: Within Functional Limits Arousal/Alertness: Appropriate responses to stimuli Mood/Behavior: Alert Single Step Commands: Consistently, With increased time, With repetition Multi-Step Commands: Consistently, With increased time, With repetition Method of Communication: Verbal Vision - Basic Assessment Patient Visual Report: Patient reports vision is at baseline Right Upper Extremity Examination RUE Assessment: Within Functional Limits Manual Muscle Testing - RUE: Within functional limits (grossly 3-/5) Sensation Light Touch: Right Upper Extremity: Intact Left Upper Extremity Examination LUE ROM Assessment LUE Assessment: Within Functional Limits (digits rest in flexion but can reach functional extension; elbow WFL; shoulder to 90 degrees) Manual Muscle Testing - LUE Manual Muscle Testing - LUE: (shoulder/elbow grossly 1/5; digits 0/5) Sensation Light Touch: Left Upper Extremity: Intact Right Lower Extremity Examination RLE ROM Assessment RLE Assessment: Within Functional Limits Manual Muscle Testing - RLE Hip flexion: 2 Knee Extension: 4 Ankle Dorsiflexion: 4 Sensation Light Touch: Right Lower Extremity: Intact Left Lower Extremity Examination LLE Assessment: (Patient with AKA; hip to 90 degrees flexion*) Hip flexion: 0 Bed Mobility Bed Mobility Interventions: Pt given verbal cues on timing/sequencing bed mobility. Pt given verbalcues on proper hand and foot placement. Pt able to reach across midline with right arm to initiate roll however, required physiscal assistance to reach across with left arm to initiate roll. Pt performed bilaterally rolling to assist in pericare and sheet change. Bed Mobility Exam: Rolling/Turning Level of [place]: Moderate assist (50% patient effort) (bilaterally) Physical/Nonphysical Assist: Verbal Cues, Minimal cues, 1 person + 1 person to manage equipment Assistive Device: Other (drawsheet) Bed Mobility Exam: Scooting/Bridging Level of [place]: Maximum assist (25% patient's effort) (to head of bed for increased positioning) Physical/Nonphysical Assist: Verbal Cues, Minimal cues Assistive Device: Other (drawsheet) Transfers Transfer Interventions: Patient politely deferring transfer tasks this date; educated on use of amputee sling for increased safety as patient expresses nervousness with transfer tasks. Ambulation Ambulation Comments: Patient does not ambulate at baseline. Therapeutic Activity (27 minutes) Refer to bed mobility section. Pt lying in dirty gown and alexander at start of therapy session requiring change. Therapist assisted in samantha-care and and bedding change to prevent infection and skin breakdown. Pt benefited from skilled physical therapy interventions including: Monitoring of vitals to ensure activity tolerance Provision of increased time frames to support optimal level of pt participation Skilled organization and management of medical lines/tubes Environmental set-up to ensure safety and accessibility to all needed areas of treatment space Standardized Assessments Standardized Assessments Standardized Assessments: [facility] 6-Clicks Mobility Assessment [facility] 6-Clicks Mobility Assessment Difficulty patient has turning over in bed (including adjusting bedclothes, sheets, and blankets)?:A lot Difficulty patient has moving from lying on back to sitting on the side of the bed?: Unable How much help does the patient need moving to and from a bed to a chair (including a wheelchair)?: Unable How much help does the patient need to walk in hospital room?: Unable How much help does the patient need climbing 3-5 steps with a railing?: Unable No data recorded Assessment Pt is a 64yo female who presents to hospital with altered mental status. Pt tolerated therapy session fairly with no adverse response. Pt worked on rolling bilaterally and required significant physical assistance from therapist. Despite maximal education and encouragement pt refused any further mobility at this time. Pt would continue to benefit from inpatient physical therapy to help return pt to baseline. Pt unsafe to discharge home at this time given current mobility status. Pt continues to present with significant functional decline from baseline and is not safe to return home at this time due to fall risk, increased caregiver burden, and increased risk for hospital re-admission. As a result, pt would be most appropriate for subacute rehab upon hospital discharge. Impairments: Impaired postural/trunk control, Decreased strength, Impaired locomotion, Pain, Impaired cognition/safety awareness, Impaired functional mobility/transfers, Impaired balance Activity Limitations: Inability to ambulate independently, Inability to transfer independently, Inability to ambulate household distances, Inability to complete ADLs independently, Inability to sit independently Participation Restrictions: Self-care, Home management, Community leisure Activity Tolerance: Tolerates 10 - 20 min activity with multiple rests Diagnosis: impaired functional mobility Rehab Potential: Fair, will monitor progress closely Barriers to Discharge: Comorbidities Eval Complexity History Profile: 1 - 2 personal factors and/or comorbidities Clinical Presentation: Evolving clinical presentation with changing characteristics Clinical Decision Making: Moderate complexity PT Recommendations Discharge Destination: Subacute rehab Discharge Equipment: Defer to facility Plan Planned PT Interventions Balance training, Bed mobility training, Transfer training, Strengthening, ROM, Functional Mobility, Stretching PT Frequency 1 - 3 times per week PT Duration 2 weeks Goals PT GOAL DETAILS Time Frame PT Goal 1: Pt will be IND with HEP and discharge recommendations. 2 weeks PT Goal 2: Pt will perform sup<>sit with modA. 2 weeks PT Goal 3: Pt perform BTC transfer with modA. 2 weeks PT Goal 4: Pt will self propel 100' in manual wheelchair. 2 weeks Written by Eileen Ortega on 02/26/25 at 11:45 AM. * Progress Notes - Makenzie Groves - 02/26/2025 10:30 AM EDT Occupational Therapy Evaluation Patient Name: Eileen May Today's Date: 02/26/2025 OT Discharge Recommendations: Subacute rehab Equipment Recommended: Defer to facility History Eileen May is 64 y.o. female admitted 02/22/2025 for work-up of Sepsis ([facility]). Hospital Course 1. Wainwright coma scale total score 9-12, at arrival to emergency department 2. Acute cystitis without hematuria 3. Acute respiratory failure with hypercapnia 4. COPD exacerbation ([facility]) Procedures Past 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 Patient has a past medical history of Anxiety, Breast cancer, Cerebral infarction, unspecified ([facility]), COPD (chronic obstructive pulmonary disease) ([facility]), Depression, Fibromyalgia, History of falling, Hypertension, Personal history of other diseases of the musculoskeletal system and connective tissue, Personal history of other endocrine, nutritional and metabolic disease, Personal history of other specified conditions, and Personal history of urinary (tract) infections. Past Surgical History Patient has a past surgical history that includes Mastectomy (N/A); Breast surgery (N/A); Cholecystectomy (N/A); Breast surgery (N/A); Kidney surgery (N/A); Knee surgery (N/A); and Shoulder surgery (Right). Precautions Medical Precautions: Fall precautions Subjective Patient states, I just want to rot. RN agreeable to OT evaluation/treatment as tolerated; Patient agreeable to bed level tasks only this date Participants in Care Family/Caregiver Present: No Community Recreation Coordinator: Not Applicable Presentation Oxygen Therapy: None (Room air) Lines and Tubes: Female External Urinary Catheter 02/25/251951 (Active) Peripheral IV 02/22/25 Anterior;Left Forearm (Active) Peripheral IV 02/22/25 Right Antecubital (Active) Peripheral IV 02/22/25 Posterior;Right Wrist (Active) Pre-Session: Lines intact, Head of bed elevated, Supine, Side lying left, Bed alarm Pre-Session Comments: Patient and RN agreeable to OT evaluation and treatment as tolerated Home Living/Set-Up Home Type: retirement facility Home Adaptive Equipment: Wheelchair-manual, Hospital bed Home Layout: One level Bathroom: Tub/Shower: (sponge bath at baseline) Bathroom: Toilet: (reports using breifs when out of bed and uses bedpan for majority of toileting) Home Living Comments: Patient reports requiring 2 people for stand pivot transfer to wheelchair at baseline; reports she spends half of her day in her chair/half of her day in her bed Prior Level of Function Receives Help From: Caregiver Level of Mobility: Wheelchair/Scooter Mobility [place]: Independent wheelchair propulsion History of Falls: No ADL Performance: Needs assistance Bathing: Needs assist Upper Body Dressing: Independent Lower Body Dressing: Needs assist Grooming: Independent Toileting: Needs assist Eating: Independent Home Management Skills: Unable to perform Patient/Family Goals Patient with no reported goals at this timePatient with no reported goals at this time Objective Pain Patient with complaints of tooth pain; RN aware. Patient did not numerically rate at this time. Delirium Screening Syed Agitation Sedation Scale (RASS): Alert and calm Confusion Assessment Method-ICU (CAM-ICU/PCAM-ICU) Feature 3: Altered Level of Consciousness: Negative Cognition Overall Cognitive Status: Within Functional Limits Arousal/Alertness: Appropriate responses to stimuli Mood/Behavior: Alert Orientation Level: Oriented X4 Single Step Commands: Consistently, With increased time, With repetition Multi-Step Commands: Consistently, With increased time, With repetition Method of Communication: Verbal Safety Judgment: Good awareness of safety precautions Awareness of Errors: Assistance required to identify errors made, Assistance required to correct errors made Deficit Awareness: Fully aware of deficits Attention Span: Attends with cues to redirect Problem Solving: Assistance required to identify errors made, Assistance required to generate solutions Vision - Complex Assessment Patient Visual Report: Patient reports vision is at baseline Right Upper Extremity Examination RUE Assessment: Within Functional Limits Manual Muscle Testing - RUE: Within functional limits (grossly 3-/5) Light Touch: Right Upper Extremity: Intact Left Upper Extremity Examination LUE Assessment: Within Functional Limits (digits rest in flexion but can reach functional extension; elbow WFL; shoulder to 90 degrees) Manual Muscle Testing - LUE: (shoulder/elbow grossly 1/5; digits 0/5) Light Touch: Left Upper Extremity: Intact Right Lower Extremity Examination RLE Assessment: Within Functional Limits Hip flexion: 2 Knee Extension: 4 Ankle Dorsiflexion: 4 Light Touch: Right Lower Extremity: Intact Left Lower Extremity Examination LLE Assessment: (Patient with AKA; hip to 90 degrees flexion*) Hip flexion: 0 Light Touch: Left Lower Extremity: (not formally assessed) SELF-CARE INTERVENTIONS Treatment Minutes (if applicable) 30 Interventions Patient engaged in sequential task training emphasizing functional transitions and movement for increased participation in higher level ADL and functional transfer tasks including bathing, toileting, and household/community mobility as detailed below. Throughout session, OT provided monitoring of vitals to ensure activity tolerance with exertional demands of task and to assess patient's cardiopulmonary response to activity. Patient benefited from skilled occupational therapy interventions including: Monitoring of vitals to ensure activity tolerance MOD verbal and tactile cues to facilitate proper body mechanics and modified body mechanics during functional tasks Provision of increased time frames to support optimal level of pt participation Task/activity modification with grading as needed to achieve safety while also providing appropriate functional challenge Skilled organization and management of medical lines/tubes to reduce fall risk with mobility aspects of ADLs Environmental set-up to ensure safety and accessibility to all needed areas of treatment space BED MOBILITY Level of [place] Physical/Non- physical Assist Adaptive Equipment Utilized Rolling/ Turning Moderate assist (50% patient effort) Verbal Cues, Minimal cues, 1 person + 1 person to manage equipment Bed rails (draw sheet) Scooting/ Bridging Maximum assist (25% patient's effort) (to head of bed for increased positioning) Verbal Cues, Minimal cues (draw sheet) Supine to Sit Sit to Supine Interventions OT providing patient with verbal and tactile cues for initiation of bed mobility including advancing BLE to edge of bed and reaching contralaterally to opposite bedrail for increased independence with fair carryover; generalized weakness and fatigue creating the need for increased phys ical assistance at this time. Patient politely deferring transition to sitting at edge of bed citing fatigue and wanting to rot this date. TRANSFERS Level of [place] Physical/Non- physical Assist Adaptive Equipment Utilized Sit to Stand Stand to sit Bed to Chair Toilet Transfer Shower Transfer Interventions Patient politely deferring transfer tasks this date; educated on use of amputee slingfor increased safety as patient expresses nervousness with transfer tasks. FUNCTIONAL MOBILITY Level of [place] Distance Adaptive Equipment Utilized Ambulation Comments Patient does not ambulate at baseline* ADL / Self-Care Tasks Level of [place] Adaptive Equipment Utilized Interventions Feeding Setup, Standby assist, Supervision anticipated Grooming SBA, Supervision, Setup To wash face and brush teeth/hair in supported sitting in bed Bathing UE Bathing Level of Assistance: Dependent LE Bathing Level of Assistance: Dependent For bathing tasks from bed level this date Upper Body Dressing Minimum assistance anticipated Lower Body Dressing Pants Level of Assistance: Dependent Sock Level of Assistance: Dependent Shoe Level of Assistance: Dependent anticipated Toileting Dependent anticipated IADLs Health Management Community Re-Entry Increased time required for RN to complete bedside care, for skilled organization of lines to prevent fall risk during mobility, for environmental set up for promotion of safe mobility, and for increased patient rest/education throughout session. Standardized Assessments [facility] 6-Click Daily Activities Help from Other: Don/Doff Regular Lower Body Clothings: Total Help From Other: Bathing: A lot Help From Other: Toileting: Total Help From Other: Don/Doff Upper Body Clothings: Little Help From Other: Grooming: Little Help From Other: Eating Meals: None [facility] 6 Click - Daily Activities Score: 14 Assessment Patient responded to OT evaluation and treatment session focused on ADL and bed level tasks well this date with rest as needed and vital signs stable. Patient benefited from OT-initiation of interventions including monitoring of hemodynamic stability in multiple positions, positioning at start and end of session to promote optimal joint alignment, reduce edema, and reduce risk for integumentary issues, and increasing endurance through repetition of bed mobility tasks. Patient generally cooperative throughout session, however, remains limited by fatigue with all movement at this time. Patient continues to demo deficits in ADL performance, functional endurance, and functional mobility, and would continue to benefit from skilled inpatient OT treatment to address deficits and increase safety and independence. Patient would additionally benefit from subacute rehab placement at discharge to increase independence with functional ADLs, expedite return to valued occupations, increase home safety, and decrease caregiver burden. OT Findings: Decreased upper extremity range of motion, Impaired IADL performance, Decreased upper extremity strength, Impaired ADL performance, Impaired judgment during ADL, Decreased endurance/ventilation/gas exchange, Impaired functional mobility, Impaired postural/trunk control, Impaired balance, Impaired fine motor control/coordination, Decreased gross motor control/coordination, Impaired motor planning Evaluation/Treatment Tolerance: Patient limited by fatigue Rehab Potential: Good, to achieve stated therapy goals Barriers to Discharge: Comorbidities Eval Complexity Occupational Profile: Review of medical/therapy records and extensive additional review of physical, cognitive, or psychosocial history Performance Deficits: Activities of daily living (ADLs), Instrumental activities of daily living (IADLs), Rest and sleep, Leisure, Social participation, Habits, Routines, Roles, Personal, Physical, Social Clinical Decision Making: Moderate Overall Eval complexity: Moderate OT Recommendations Discharge Destination: Subacute rehab Discharge Equipment: Defer to facility Plan Planned OT Interventions ADL retraining, IADL retraining, Balance training, Fine motor coordination training, Bed mobility Training, Strengthening, Motor coordination training, ROM, Stretching, Transfer training, Functional mobility, Caregiver education, Cognitive retraining OT Frequency 1 - 3 times per week OT Duration 2 weeks Goals OT GOAL DETAILS Time Frame OT Goal 1: Pt will complete supine<>sit with Mod A for increased upright activity tolerance and independence with higher level mobility and transfer tasks. 2 weeks OT Goal 2: Pt will complete grooming/hygiene tasks sitting unsupported at EOB with CGA x 1 for safety. 2 weeks OT Goal 3: Pt will complete transfer to and from wheelchair or bedside chair with Mod A and AAD forsafety. 2 weeks OT Goal 4: Pt will demonstrate independence with UE strengthening/fine motor HEP to improve strength, endurance and coordination for functional tasks/activities. 2 weeks Written by Makenzie Groves on 02/26/25 at 11:38 AM. * Progress Notes - Chuy Graham, DO - 02/26/2025 8:04 AM EDT Images from the original note were not included. MICU PROGRESS NOTE Summary of Presentation: Eileen May is a 64 y.o. female with PMHx significant for CAD s/p PCI, ICM w/ LVEF 35-40%, CVA w/ residual L-sided deficits s/p ICA stents, Fibromyalgia, Left AKA, insulin dependent T2DM, HTN, HLD, prior breast cancer s/p mastectomy, COPD, recurrent UTI's s/p cystoscopy w/ bilateral retrograde pyelogram w/ bilateral ureteral stent placement 01/31/25 with urology presenting from OSH withAHRF and AMS. Pt was intubated for airway protection on arrival to ED for GSC of 7. Pt was foundto be positive for Rhinovirus and had a negative infectious workup. She was extubated to [place] w/o complications on 02/24/25. Events of past 24 hours: - no acute events overnight Subjective: - patient seen and evaluated at bedside this morning. Pt states she feels better today but still having significant tooth pain. Remains afebrile Review of Systems: A 14 point ROS was completed and reviewed and is otherwise negative except as per HPI Last Recorded Vitals Blood pressure (!) 154/67, pulse 83, temperature 37.1 ??C (98.7 ??F), temperature source Bladder, resp. rate (!) 29, height 1.626 m (5' 4.02 ), weight 98.4 kg (216 lb 14.9 oz), SpO2 90%. O2 Delivery Method: Nasal cannula Physical Exam Physical Exam Constitutional: General: She is not in acute distress. HENT: Head: Normocephalic. Nose: Comments: NC in place Mouth/Throat: Dentition: Abnormal dentition. Dental tenderness and dental caries present. Eyes: General: No scleral icterus. Right eye: No discharge. Left eye: No discharge. Extraocular Movements: Extraocular movements intact. Cardiovascular: Rate and Rhythm: Normal rate and regular rhythm. Pulmonary: Effort: Pulmonary effort is normal. Breath sounds: No wheezing or rales. Comments: On 2L NC Abdominal: General: Abdomen is flat. Palpations: Abdomen is soft. Tenderness: There is no abdominal tenderness. Musculoskeletal: Comments: S/p L AKA Skin: General: Skin is warm and dry. Findings: No rash. Neurological: Mental Status: She is alert and oriented to person, place, and time. Mental status is at baseline. Results: I have personally reviewed the following labs and used them to guide clinical decision making. CBC WBC 7.59 Hb 10.3 (L) Plt 375 (H) Hct 32.3 (L) ANC ?? INR ??, PTT ??, Anti-Xa ?? BMP Na 133 (L) Cl 96 (L) BUN 26 (H) Glu 156 (H) K 4.2 Co2 24 Cr 1.62 (H) Ca 8.9 iCa ?? Mg 1.7 (L), Phos 3.8 Lactate ?? LFT AST ?? AlkPhos ?? T Prot ?? ALK ?? Bili ?? Alb ?? D.Bili ?? Results from last 7 days Lab Units 02/22/25 2105 PH ART 7.45* PCO2 ART mm Hg 37 PO2 ART mm Hg 86 HCO3 ART mmol/L 25.7 BASE EXC ART mmol/L 1.7 Medications: atorvastatin, 40 mg, Oral, Nightly baclofen, 10 mg, Oral, TID carvedilol, 25 mg, Oral, BID clopidogrel, 75 mg, Oral, Daily DULoxetine, 60 mg, Oral, Daily Followed by [START ON 03/02/2025] DULoxetine, 30 mg, Oral, Daily fentaNYL, 1 patch, Transdermal, q72h heparin (porcine), 5,000 Units, Subcutaneous, q8h CLARI insulin glargine-yfgn, 15 Units, Subcutaneous, Nightly insulin lispro, 0-5 Units, Subcutaneous, TID with meals insulin lispro, 0-3 Units, Subcutaneous, Twice at night mirabegron ER, 50 mg, Oral, Daily mometasone-formoterol, 2 puff, Inhalation, BID mupirocin, 1 Application, Each Nostril, BID pantoprazole, 40 mg, Oral, Daily pregabalin, 50 mg, Oral, Daily Current Continuous Medications[1] Current PRN Medications[2] Imaging (past 24h): No new imaging studies Assessment and Plan Eileen May is a 64 y.o. female with PMHx significant for CAD s/p PCI, ICM w/ LVEF 35-40%, CVA w/ residual L-sided deficits s/p ICA stents, Fibromyalgia, Left AKA, insulin dependent T2DM, HTN, HLD, prior breast cancer s/p mastectomy, COPD, recurrent UTI's s/p cystoscopy w/ bilateral retrograde pyelogram w/ bilateral ureteral stent placement 01/31/25 with urology presenting from OSH withAHRF and AMS. Pt was intubated for airway protection on arrival to ED for GSC of 7. Pt was foundto be positive for Rhinovirus and had a negative infectious workup. She was extubated to [place] w/o complications on 02/24/25. #Acute hypoxic respiratory failure requiring MV iso viral pneumonia with Rhinovirus c/b suspected OHS, improving - hypoxic on arrival to OSH w/ SpO2 88% on 2L - CTPE OSH no evidence of PE, diffuse bilateral ground glass opacifications - initial VBG 7.28/60/4, post-intubation VBG 7.33/49/27, PCR + for Rhinovirus - urine strep/legionella negative, PAL MURF, Bcx NGTD - S/p extubation 02/24, AK for SPO2 92%+ PLAN: - Supportive care for viral pneumonia iso + Rhinovirus - wean O2 as tolerated, goal O2% is > 88% - continue dulera and at d/c can resume Breo #Left Upper Molar Pain #Abnormal Dentition - can see multiple cavities and very poor dentition along with broke molr - causing pt pain for the last 2 weeks PLAN: - consulted [facility]FS for evaluation, they have plans for extraction, see OMFS note for full details #Neurogenic bladder c/b hydronephrosis and hydroureter c/b CKD stage 3b #Non-oliguric GEOVANNI with Disorder of Fluid and Electrolytes, resolved - baseline Scr 1.6-1.8 - likely prerenal, given bilateral hydronephrosis is chronic - 01/31 underwent cystoscopy w/ bilateral retrograde pyelogram and bilateral ureteral stent placement for neurogenic bladder with hematuria - stents left in place on strings with parekh catheter, pt instructed to remove 02/04 at home - CT OSH bilateral hydronephrosis and hydroureter present, no evidence of stents - UA OSH + leuks and bacteria with cloudy urine - repeat UA at on arrival, shows no bacteria, + leuks, pyuria, negative nitrite; likely contaminated as parekh leaking poor and pt likely colonized and no leukocytosis, Ucx normal jesus PLAN: - strict I&O, renally dose medications, avoid nephrotoxic agents - caution with IV fluids as EF 35% - Hematuria resolved, will monitor renal function and volume status - consulted urology for parekh management, now pt w/o parekh, using external cath - resumed home meds - continue Mirabegron #HFrEF 2/2 ICM - 11/2024 LVEF 35-40% - Current GDMT: coreg 12.5mg BID, SGLT2i contraindicated 2/2 recurrent UTIs, hyperK precludes spironolactone - evaluated by cardiology 10/2024 - NT-proBNP 1,542 PLAN: - patient dose not appear hypervolemic on exam, holding diuresis at this time - resumed coreg and increased dose to 25mg BID for more optimal BP management #ICA stenosis s/p L ICA stent w/ Hx of CVA -Xarelto and Plavix on home meds - resume plavix and discontinue xarelto - Pt informed me she was started on this after her stroke (appears to be Triple therapy that was never discontinued). She denied any history of atrial fibrillation. Telemetry had flagged her for afibbut EKG reveals low voltage p waves with RBBB. Her HAS-BLED score is 4pts (a 9% risk of bleed) which is high risk for bleed and not recommended to have DOAC if not indicated. At this time we will discontinue the xarelto indefinitely Resolved Conditions this admission: #Hypovolemic Hyponatremia, resolved - baseline Na 130-135 - Na 120 at OSH, 125 on arrival to [facility] - Serum osm wnl, urine osm 408 with Na 31 PLAN: -Na 132 02/24 #Acute Encephalopathy, resolved - metabolic vs toxic from cymbalta withdrawal, likely etiology is multifactorial in combination with hyponatremia and viral pna - was told to stop 90mg of Cymbalta on 02/20/25, no evidence of taper in for this - monitored serum Na per below - weaned sedation as tolerated to continue to assess mentation #Elevated alkaline phophatase, resolved - AST 13, ALT 19, alk phos 144 ->105 Chronic conditions not being actively addressed during this admission: #Breast cancer s/p mastectomy: holding anastrazole pending med rec #CAD s/p PCI: atorvastatin #CVA w/ residual L sided deficits: atorvastatin, Plavix #T2DM: A1c is 9.2%, on ssi, resume home glargine when eating PO #Chronic Pain: resumed home meds today F: soft and bite sized, [employer] eval A: oxy, acetaminophen, fentanyl patch (home dose), prn q3 dilaudid S: - T: subQ Heparin H: >30 U: PPI G: SSI + 1/2 home glargine when taking PO S: - B: - I: external urinary cather, PIV x3 D: - Dispo: downgrade to acute today Code Status: Assume Full These diagnoses are medical relevant to the treatment plan and are present on admission: Fluid & Electrolyte Disorders with the following disturbances: Acidosis Malnutrition: Unspecified protein-calorie malnutrition Please note that all recommendations should be considered preliminary until this note is cosigned by the attending physician. Patient was seen and plan discussed with Dr. Hill. - Chuy Graham, DO Internal Medicine PGY-2 Pager [phone]; Epic Chat preferred Procedures [1] [2] PRN medications: acetaminophen, benzocaine, glucose OR dextrose 10 % OR dextrose 10 % OR glucagon (human recombinant), HYDROmorphone, ipratropium-albuterol, ondansetron ODT OR ondansetron OR ondansetron, oxyCODONE, [COMPLETED] Insert peripheral IV AND [COMPLETED] Saline lock IV AND sodium chloride Cosigned by Ludy Hill MD at 02/27/2025 3:29 PM EDT Associated attestation - Ludy Hill MD - 02/27/2025 3:29 PM EDT I saw and evaluated the patient with the resident/fellow. I discussed the case with the resident/fellow and agree with the findings and plan as documented. * Care Plan - Daniela Mcbride RN - 02/25/2025 7:57 PM EDT Problem: Infection Goal: Absence of Infection Signs and Symptoms Outcome: Ongoing, Progressing Intervention: Prevent or Manage Infection Flowsheets Taken 02/25/20251927 by Daniela Mcbride RN Isolation Precautions: precautions maintained Taken 02/23/2025 1254 by Temi Mao RN Fever Reduction/Comfort Measures: lightweight bedding Taken 02/22/20252233 by Daniela Mcbride RN Infection Management: aseptic technique maintained Problem: Adult Inpatient Plan of Care Goal: Plan of Care Review Outcome: Ongoing, Progressing Flowsheets Taken 02/24/20252002 Progress: improving Taken 02/22/20252233 Plan of Care Reviewed With: patient Goal: Patient-Specific Goal (Individualized) Outcome: Ongoing, Progressing Flowsheets (Taken 02/25/20251927) Patient/Family-Specific Goals (Include Timeframe): Q2 turns Individualized Care Needs: pain control Anxieties, Fears or Concerns: pain Goal: Absence of Hospital-Acquired Illness or Injury Outcome: Ongoing, Progressing Intervention: Prevent Skin Injury Flowsheets Taken 02/25/20251927 by Daniela Mcbride RN Body Position: right turned Taken 02/24/2025 1700 by Delroy Bernal RN Skin Protection: incontinence pads utilized Intervention: Prevent and Manage VTE (Venous Thromboembolism) Risk Flowsheets (Taken 02/25/20251954) VTE Prevention/Management: right SCDs (sequential compression devices) on Goal: Optimal Comfort and Wellbeing Outcome: Ongoing, Progressing Intervention: Monitor Pain and Promote Comfort Flowsheets (Taken 02/25/20251927) Pain Management Interventions: medication (see MAR) Goal: Readiness for Transition of Care Outcome: Ongoing, Progressing Intervention: Mutually Develop Transition Plan Flowsheets Taken 02/25/2025 1510 by Sarah Rand Equipment Currently Used at Home: cane, straight wheelchair, manual wheelchair, power Taken 02/24/20252002 by Daniela Mcbride RN Current Outpatient/Agency/Support Group: assisted living facility Concerns to be Addressed: no discharge needs identified Taken 02/23/2025 1254 by Temi Mao RN Readmission Within the Last 30 Days: no previous admission in last 30 days Problem: Sepsis/Septic Shock Goal: Absence of Bleeding Outcome: Ongoing, Progressing Intervention: Monitor and Manage Bleeding Flowsheets (Taken 02/24/2025 0914 by Delroy Bernal RN) Bleeding Precautions: monitored for signs of bleeding Goal: Blood Glucose Level Within Target Range Outcome: Ongoing, Progressing Intervention: Optimize Glycemic Control Flowsheets (Taken 02/22/20252233) Hyperglycemia Management: blood glucose monitored Hypoglycemia Management: blood glucose monitored Goal: Absence of Infection Signs and Symptoms Outcome: Ongoing, Progressing Intervention: Initiate Sepsis Management Flowsheets Taken 02/25/20251927 Isolation Precautions: precautions maintained Taken 02/24/20252002 Stabilization Measures: airway opened Taken 02/22/20252233 Infection Management: aseptic technique maintained Infection Prevention: environmental surveillance performed Intervention: Promote Stabilization Flowsheets Taken 02/24/20252002 by Daniela Mcbride RN Fluid/Electrolyte Management: electrolyte-binding therapy initiated Taken 02/23/2025 1254 by Temi Mao RN Lung Protection Measures: fluid excess minimized Fever Reduction/Comfort Measures: lightweight bedding Intervention: Promote Recovery Flowsheets Taken 02/24/2025 0800 by Delroy Bernal RN Activity Management: activity adjusted per tolerance Taken 02/23/2025 1254 by Temi Mao RN Sleep/Rest Enhancement: consistent schedule promoted natural light exposure provided relaxation techniques promoted Taken 02/23/2025 1021 by Janis Angulo Airway/Ventilation Management: pulmonary hygiene promoted oxygen therapy provided airway patency maintained position adjusted calming measures promoted positive pressure ventilation provided humidification applied Problem: Oral Intake Inadequate Goal: Improved Oral Intake Outcome: Ongoing, Progressing Intervention: Promote and Optimize Oral Intake Flowsheets (Taken 02/25/2025 1912 by Bassem Jay RN) Oral Nutrition Promotion: physical activity promoted Nutrition Interventions: diet adjusted food preferences provided * Care Plan - Bassem Jay RN - 02/25/2025 7:14 PM EDT Problem: Infection Goal: Absence of Infection Signs and Symptoms Outcome: Ongoing, Progressing Intervention: Prevent or Manage Infection Flowsheets Taken 02/25/2025 0800 by Bassem Jay RN Isolation Precautions: precautions maintained Taken 02/23/2025 1254 by Temi Mao RN Fever Reduction/Comfort Measures: lightweight bedding Taken 02/22/20252233 by Daniela Mcbride RN Infection Management: aseptic technique maintained Problem: Adult Inpatient Plan of Care Goal: Plan of Care Review Outcome: Ongoing, Progressing Flowsheets Taken 02/24/20252002 by Daniela Mcbride RN Progress: improving Taken 02/22/20252233 by Daniela Mcbride RN Plan of Care Reviewed With: patient Goal: Patient-Specific Goal (Individualized) Outcome: Ongoing, Progressing Flowsheets (Taken 02/25/2025 0800) Patient/Family-Specific Goals (Include Timeframe): pt pain will remain <4 during shift Individualized Care Needs: q2h turns Anxieties, Fears or Concerns: Jaw pain Goal: Absence of Hospital-Acquired Illness or Injury Outcome: Ongoing, Progressing Intervention: Prevent Skin Injury Flowsheets Taken 02/25/2025 1800 by Bassem Jay RN Body Position: left turned Taken 02/24/2025 1700 by Delroy Bernal RN Skin Protection: incontinence pads utilized Goal: Optimal Comfort and Wellbeing Outcome: Ongoing, Progressing Intervention: Monitor Pain and Promote Comfort Flowsheets (Taken 02/25/2025 1650) Pain Management Interventions: medication (see MAR) Goal: Readiness for Transition of Care Outcome: Ongoing, Progressing Intervention: Mutually Develop Transition Plan Flowsheets Taken 02/25/2025 1510 by Sarah Rand Equipment Currently Used at Home: cane, straight wheelchair, manual wheelchair, power Taken 02/24/20252002 by Daniela Mcbride RN Current Outpatient/Agency/Support Group: assisted living facility Concerns to be Addressed: no discharge needs identified Taken 02/23/2025 1254 by Temi Mao RN Readmission Within the Last 30 Days: no previous admission in last 30 days Problem: Sepsis/Septic Shock Goal: Absence of Bleeding Outcome: Ongoing, Progressing Intervention: Monitor and Manage Bleeding Flowsheets (Taken 02/24/2025 0914 by Delroy Brenal RN) Bleeding Precautions: monitored for signs of bleeding Goal: Blood Glucose Level Within Target Range Outcome: Ongoing, Progressing Intervention: Optimize Glycemic Control Flowsheets (Taken 02/22/20252233 by Daniela Mcbride RN) Hyperglycemia Management: blood glucose monitored Hypoglycemia Management: blood glucose monitored Goal: Absence of Infection Signs and Symptoms Outcome: Ongoing, Progressing Intervention: Initiate Sepsis Management Flowsheets Taken 02/25/2025 0800 by Bassem Jay RN Isolation Precautions: precautions maintained Taken 02/24/20252002 by Daniela Mcbride RN Stabilization Measures: airway opened Taken 02/22/20252233 by Daniela Mcbride RN Infection Management: aseptic technique maintained Infection Prevention: environmental surveillance performed Intervention: Promote Stabilization Flowsheets Taken 02/24/20252002 by Daniela Mcbride RN Fluid/Electrolyte Management: electrolyte-binding therapy initiated Taken 02/23/2025 1254 by Temi Mao RN Lung Protection Measures: fluid excess minimized Fever Reduction/Comfort Measures: lightweight bedding Intervention: Promote Recovery Flowsheets Taken 02/24/2025 0800 by Delroy Bernal RN Activity Management: activity adjusted per tolerance Taken 02/23/2025 1254 by Temi Mao RN Sleep/Rest Enhancement: consistent schedule promoted natural light exposure provided relaxation techniques promoted Taken 02/23/2025 1021 by Janis Angulo Airway/Ventilation Management: pulmonary hygiene promoted oxygen therapy provided airway patency maintained position adjusted calming measures promoted positive pressure ventilation provided humidification applied Problem: Oral Intake Inadequate Goal: Improved Oral Intake Outcome: Ongoing, Progressing Intervention: Promote and Optimize Oral Intake Flowsheets (Taken 02/25/2025 1912) Oral Nutrition Promotion: physical activity promoted Nutrition Interventions: diet adjusted food preferences provided * Consults - Bert Lim DMD - 02/25/2025 6:49 PM EDTAssociated Order(s): Inpatient consult to Oral Surgery Images from the original note were not included. Oral & Maxillofacial Surgery Consult Note 02/25/25 Reason for Consult: Dental Pain Upper left Requesting Service: Hospital Medicine Consult Date and Time: 02/25/2025 1303 Inpatient consult to Oral Surgery Consult performed by: Bert Lim DMD Consult ordered by: Ludy Hill MD Reason for consult: Tooth Pain Subjective History of Present Illness: Chief Complaint: My tooth is killing me. Eileen May is a 64 y.o. female with a PMH of CAD s/p PCI, ICM w/ LVEF 35-40%, CVA w/ residual L-sided deficits s/p ICA stents, Fibromyalgia, Left AKA, insulin dependent T2DM, HTN, HLD, prior breast cancer s/p mastectomy, COPD, recurrent UTI's s/p cystoscopy w/ bilateral retrograde pyelogram w/ bilateral ureteral stent placement 01/31/25 with urology presenting from OSH with AHRF and AMS. who presents with dental pain. The pain began roughly 2 days ago in the upper left localized to #15. The pain is waxing and waning, the pain is described as throbbing the patient did not report anyaggravating or relieving characteristics. The patient does not report any radiating pain. Pt. Denies dysphagia, dyspnea, hoarseness, dysphonia, or n/v/f/c. The REVIEW OF SYSTEMS: 14 points ROS negative unless otherwise noted in HPI PAST MEDICAL HISTORY Past 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[1] PAST SURGICAL HISTORY Surgical History[2] MEDICATIONS Medications Ordered Prior to Encounter[3] ALLERGIES Allergies[4] SOCIAL HISTORY Smoking: former Alcohol: not currently Illicit drugs: never Objective: Visit Vitals BP (!) 160/79 Pulse 83 Temp 36.8 ??C (98.3 ??F) (Oral) Ht 1.626 m (5' 4.02 ) Wt 97.2 kg (214 lb 4.6 oz) SpO2 94% BMI 36.76 kg/m?? @ PHYSICAL EXAMINATION: General: Well nourished, in no acute distress.? HEENT: Normocephalic, atraumatic without crepitus. No facial swelling, ecchymosis, overlying erythema, or asymmetry, no lesions. No significant facial depressions or step-deformities. Hearing intact.Normal conjunctiva and sclera, no chemosis. Pupils 3 mm, PERRL, EOMI, No ptosis. No traumatic telecanthus, anisocoria, hyphema, diplopia, globe rupture, enophthalmos, proptosis, vertical dystopia, orentrapment. Nasal complex midline, stable, nontender to palpation, no epistaxis or septal hematoma or CSF. Nares with congestion. Soft, supple, nontender to palpation, inferior border of mandible palpable bilaterally, trachea midline, no lymphadenopathy, normal range of motion. Good cervical flexion and extension.? Intra-Oral: COURT >40 mm. Maxilla and mandible stable, occlusion stable and reproducible. No maxillary or mandibular fullness. Upper left 2nd molar (#15) sensitive to palpation. Oral mucosa moist, intact. No intraoral lesions. No pharyngeal edema. FOM soft/nontender/non-elevated. Mallampati III ? Heart: Regular rate and rhythm. Lungs: Symmetrical chest rise with labored breathing. Neurologic: Awake, alert and oriented x3, CN II-XII intact bilaterally.? Psychiatric: Cooperative, appropriate mood and affect. Memory intact.? Laboratory: CBC WBC ?? Hb ?? Plt ?? Hct ?? ANC ?? INR ??, PTT ??, Anti-Xa ?? BMP Na 134 (L) Cl 97 BUN 34 (H) Glu 95 K 3.9 Co2 23 Cr 1.62 (H) Ca 8.9 iCa ?? Mg ??, Phos ?? Lactate ?? Imaging: Panoramic ordered. Pending review. Radiographic Interpretation: No imagining today. Assessment & Plan: Eileen May is a 64 y.o. female with a PMH of CAD s/p PCI, ICM w/ LVEF 35-40%, CVA w/ residual L-sided deficits s/p ICA stents, Fibromyalgia, Left AKA, insulin dependent T2DM, HTN, HLD, prior breast cancer s/p mastectomy, COPD, recurrent UTI's s/p cystoscopy w/ bilateral retrograde pyelogram w/ bilateral ureteral stent placement 01/31/25 Patient is reporting pain associated with tooth #15. My assessment is that she would benefit from dental extraction of #15 Plan: -Schedule patient to follow-up on 5th floor [facility] for extraction of #15 underlocal anesthesia. -we will arrange transport to clinic from hospital bed. - Diet: Regular; NPO at midnight prior to surgery -For extraction of one tooth it is not warranted to stop current anticoagulation therapy. -Follow current recommendations of Primary team. [facility] Department of Oral & Maxillofacial Surgery [address] [place] [address] Dispo: Continue Current Level of Care Bert Lim DMD [1] Past 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: Diagnosis Date Anxiety [...] BREAST SURGERY N/A Breast Surgery Reconstruction from [employer] BREAST SURGERY N/A Breast Surgery from [employer] CHOLECYSTECTOMY N/A Cholecystotomy from [employer] KIDNEY SURGERY N/A Kidney Surgery from [employer] [facility] KNEE SURGERY N/A Knee Surgery from [employer] MASTECTOMY N/A Breast Surgery Mastectomy from [employer] SHOULDER SURGERY Right Shoulder Surgery Right from [employer] [3] No current facility-administered medications on file prior to encounter. Current Outpatient Medications on File Prior to Encounter Medication Sig Dispense Refill acetaminophen (Tylenol) 500 MG tablet Take 1 tablet by mouth every 6 hours as needed. anastrozole (Arimidex) 1 MG chemo tablet Take 1 tablet (1 mg total) by mouth daily. ascorbic acid (Vitamin C) 500 MG tablet [...] (one) time each day. 120 capsule 11 estradiol (Estrace) 0.1 MG/GM vaginal cream Insert [...] into each nostril 2 times a day. insulin aspart (NovoLOG) 100 UNIT/ML injection pen Inject under the skin 2 times a day. Sliding scale insulin glargine (Basaglar KwikPen) 100 UNIT/ML injection pen Inject 70 Units under the skin 2 times a day. @ 0630 and 2000 loperamide (Imodium) 2 MG capsule Take 1 capsule by mouth every 4 hours as needed. magnesium oxide (Mag-Ox) 400 mg tablet Take 1 tablet by mouth 2 times a day. mirabegron ER (Myrbetriq) 50 MG tablet Take 1 tablet by mouth daily. multivitamin (Theragran-M) tablet Take 1 tablet by [...] tablet Take 2 tablets by mouth nightly. trospium (Sanctura) 20 MG tablet Take 1 tablet (20 mg) by mouth 2 (two) times a day. 60 tablet 11 DULoxetine (Cymbalta) [address] capsule Take 1 capsule by mouth daily. Do not crush or chew. Take with 60mg capsule for a 90mg dose DULoxetine (Cymbalta) [address] capsule Take 1 capsule by mouth daily. Do not crush or chew. Take with 30mg capsule for a 90mg dose mirabegron ER (Myrbetriq) 25 MG tablet Take 2 tablets by mouth every morning. (Patient not taking: Reported on 02/23/2025) 60 tablet 11 Vibegron 75 MG tablet Take 75 mg by mouth daily. Take one pill by mouth daily. (Patient not taking:Reported on 01/31/2025) 30 tablet 11 [DISCONTINUED] ARIPiprazole (Abilify) 5 MG tablet Take 1 tablet (5 mg) by mouth 1 (one) time each day. [DISCONTINUED] Artificial Tears ophthalmic solution Administer 2 drops into both eyes 3 times a dayas needed. (Patient not taking: Reported on 01/31/2025) [DISCONTINUED] dextromethorphan-guaiFENesin (Robitussin-DM) 10-100 MG/5ML liquid Take 10 mL by mouth every 4 (four) hours if needed. (Patient not taking: Reported on 01/31/2025) [DISCONTINUED] diphenhydrAMINE (Benadryl) 25 MG tablet Take 1 tablet by mouth 2 times a day as needed for itching. [DISCONTINUED] guaiFENesin (GUAIASORB PO) Take 10 mL by mouth every 4 hours as needed. [DISCONTINUED] insulin aspart, w/niacinamide, (Fiasp) 100 UNIT/ML solution vial Inject as directed 2 (two) times a day. Per sliding scale @ 1130 and 1630 [DISCONTINUED] ipratropium-albuterol (Duo-Neb) 0.5-2.5 mg/3 mL nebulizer solution Take 3 mL by nebulization every 6 hours as needed. [DISCONTINUED] traZODone (Desyrel) 300 MG tablet [4] Allergies Allergen Reactions Sulfa Drugs Anaphylaxis Ultram [Tramadol] Swelling lips swell Hydrocodone Unknown - Patient states they do not know rxn details [facility] is unaware of what reaction. Pedi-Pre Tape [place] [Wound Dressing Adhesive] Rash Wellbutrin [Bupropion] Rash Cosigned by Jin Rodriguez DDS at 02/26/2025 10:04 AM EDT Associated attestation - Jin Rodriguez DDS - 02/26/2025 10:04 AM EDT I reviewed with Dr. Bowling and agree with the plan * Progress Notes - Sarah Rand - 02/25/2025 3:11 PM EDT Case Management Adult Initial Progress Note Eileen Chayito May 64 y.o. female CSN: [id number] Admission: 02/22/2025 6:13 PM Primary Problem: Sepsis (CMS/HCC) Sales Representative Cash Registers reviewed chart and spoke with patient to complete this Initial Case Management Assessment. PCP: Vignesh Pickens MD Emergency Contact: Extended Emergency Contact Information Primary Emergency Contact: Val Howell Mobile Relation: Sister Community Recreation Coordinator needed? No Insurance: Primary Visit Coverage Payer Plan Sponsor Code Group Number Group Name MEDICARE MEDICARE A & B Primary Visit Coverage Subscriber Subscriber ID Subscriber Name Subscriber [facility] Subscriber Address [id number] EILEEN MAY [id number] [address] Secondary Visit Coverage Payer Plan Sponsor Code Group Number Group Name MEDICAID-[facility] MEDICAID TRADITIONAL Secondary Visit Coverage Subscriber Subscriber ID Subscriber Name Subscriber N Subscriber Address [id number] EILEEN MAY [id number] [place] [address] Patient information: Primary Caregiver: Private caregiver Support System: Immediate family Daily Living Activities: Functional Status: Moderate assistance Living Arrangements: [facility] Type of Residence: retirement facility [facility] [place] [id number] Current DME: Equipment Currently Used at Home: cane, straight, wheelchair, manual, wheelchair, power Income Information: Income Source: Disabled Income/Expense Information: Income meets expenses Current Resources Utilized: None Housing Circumstances-Z Codes: Housing Circumstances (select all that apply): None Applicable Patient Referred to: None reported. Anticipated Discharge Date: TBD Patient's Discharge Goal: Patient desires to return to SNF. Assistance Available at Discharge: Current Outpatient/Agency/Support Group: assisted living facility Discharge Transport: Follow Up Transport: [facility] provides follow up transportation. Patient will need assistance with transportation when medically stable. Home Health / Home Infusion / Outpatient Dialysis Services: None reported. Living Will/Advance Directive/Power of Cloth Dye Range Operator /Guardian: None reported. Sister/Val is NOK. Additional Comments: Case Management will continue to follow. Sarah Rand * Progress Notes - Daily Villasenor RN - 02/25/2025 2:13 PM EDT Images from the original note were not included. Wound Care Consult Visit Date: 02/25/2025 Patient Name: Eileen May Date of : 1960 Admit Date: 02/22/2025 Reason for Consult: IP Wound Orders (From admission, onward) Start Ordered 02/23/25 1025 Wound ostomy eval and treat Once Comments: Wound on buttock Question Answer Comment Reason for consult: Wound/pressure injury Instructions: Prior to sending evaluation & treat order, place wound/ostomy LDA, complete a wound/ostomy assessment, and consider taking a photograph to document. 02/23/25 1025 Reviewed photo taken 02/24 by bedside staff of gluteals demonstarting a patchy pink area with dry peeling skin and surrounding thickening and hyperpigmentation. No concerns per primary RN; appears to be healing evolution of area seen in July 2024. Recommend pressure injury prevention protocol and monitor for re-opening scar tissue. Staff also documenting irritation to breast fold; photo demonstrates pink discoloration with fissuring and peeling skin. Does not have characteristics in common with fungal component per photo. Placed recommendations for moisture management. Does not require wound care follow up at this time, please re-consult wound care with new concerns. Daily Villasenor RN 02/25/2025 2:13 PM * Consults - Back, Di Amador RD - 02/25/2025 8:30 AM EDT Adult Nutrition Evaluation Note Eileen May 64 y.o. female CSN: [id number] Room/Bed 121/121A Nutrition evaluation type: follow-up Reason for evaluation: Hospital course: 64 y.o. female who presented from OSH on 02/22 with AHRF and AMS. Past medical/ surgical history: Past 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[1] Surgical History[2] Social history: reviewed Additional comments: Started on PO diet. With team at time of visit. No GI symptoms noted. Vitals and Basic Assessment: BP: (!) 163/73 Temp: 37.2 ??C (99 ??F) Invasive Ventilator Initiated (ETT/Trach Only): Yes Oxygen Therapy: Supplemental oxygen O2 Delivery Method: Nasal cannula Dave Coma Scale Score: 15 Ray Scale Score: 14 Faizan/Cubbin Pressure Risk Score: 38 Edema: Generalized Allergies: NKFA per EMR Medications: Current Scheduled Medications[3] Current PRN Medications[4] Current Continuous Medications[5] Meds were reviewed: Yes Labs: Lab Results Component Value Date GLUCOSE 95 02/25/2025 CALCIUM 8.9 02/25/2025 NA 134 (L) 02/25/2025 K 3.9 02/25/2025 CO2 23 02/25/2025 CL 97 02/25/2025 BUN 34 (H) 02/25/2025 CREATININE 1.62 (H) 02/25/2025 PHOS 3.0 02/24/2025 MG 2.2 02/24/2025 HGBA1C 9.2 (H) 02/22/2025 Lab Results Component Value Date CHOL 112 11/05/2024 TRIG 158 (H) 11/05/2024 HDL 38 (L) 11/05/2024 LDLCALC 47 11/05/2024 Anthropometrics: Height: 162.6 cm (5' 4.02 ) Weight: 97.2 kg (214 lb 4.6 oz) BMI (Calculated): 36.76 Weight Evaluation: Obese-Class 2 (BMI 35-39.9) [place] Body Weight (kg): 48.55 (adjusted for left AKA) Percent [place] Body Weight: 198 Adjusted Body Weight (kg): 60.5 Wt Readings from Last 10 Encounters: 02/25/25 97.2 kg (214 lb 4.6 oz) 01/24/25 85.7 kg (189 lb) 12/31/24 85.7 kg (189 lb) 12/20/24 85.7 kg (189 lb) 11/05/24 85.7 kg (189 lb) 10/12/24 85.8 kg (189 lb 3.2 oz) 09/26/24 86.2 kg (190 lb) 08/15/24 89.7 kg (197 lb 12 oz) 03/24/23 101 kg (223 lb) 10/04/22 101 kg (223 lb 8.7 oz) Estimated Needs: Kcal/ K-30 Kcal Provided: 1168-4927 Kcal Needs Based On: Adjusted weight (60.5 kg) Gm Protein/ Kg : 1.2-1.5 Protein Provided: 73-91 Protein Needs Based On: Adjusted weight (60.5 kg) Fluid Provided: 1 ml/kcal or per MD team Metabolic Cart Study Results: Current Nutrition Intake: Diet Supplements: None Diet Order: Adult Diet Diet Texture: Full Liquid Adult Carbohydrate Restriction: Consistent CHO 2 (1708-0542 [place], 80 g/meal) Percent Meals Eaten (%): 50% x 1 meal Diet Experience and Nutrition History: Diet Education Provided: Will monitor Pertinent home medications: ascorbic acid, calcitriol, cholecalciferol, cyanocobalamin, ferrous sulfate, insulin, loperamide, magnesium oxide, MVI, ondansetron, Percocet, pantoprazole Druze needs: Nutrition Focused Physical Exam: Unable to Complete Exam: Patient unable to participate Physical exam performed on (date): Assessment of Malnutrition: Nutrition Problem: Inadequate oral intake related to current clinical condition as evidenced by full liquid diet. Status of Nutrition Diagnosis: Ongoing Nutrition Interventions and Recommendations: - Advance diet as appropriate per COUNTY TAX ASSESSOR - CHO 2 diet - Add Boost Glucose Control TID - Add Tony BID to provide 160 kcal, 14 gm L-Arginine, 14 gm L-Glutamine, vitamins C, E, B12, and calcium and zinc for pressure wound - Document intakes Nutrition Monitoring and Goals: - Nutrition to start within 48 hours (met) - Consume 75% or greater - Monitor weight, labs, and elytes Acuity Level: [address] Di Ramires, RD [1] Past 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: Diagnosis Date Anxiety [...] BREAST SURGERY N/A Breast Surgery Reconstruction from [employer] BREAST SURGERY N/A Breast Surgery from [employer] CHOLECYSTECTOMY N/A Cholecystotomy from [employer] KIDNEY SURGERY N/A Kidney Surgery from [employer] KNEE SURGERY N/A Knee Surgery from [employer] MASTECTOMY N/A Breast Surgery Mastectomy from [employer] SHOULDER SURGERY Right Shoulder Surgery Right from [employer] [3] atorvastatin, 40 mg, Oral, Nightly baclofen, 10 mg, Oral, TID clopidogrel, 75 mg, Oral, Daily DULoxetine, 60 mg, Oral, Daily FOLLOWED BY [START ON 03/02/2025] DULoxetine, 30 mg, Oral, Daily heparin (porcine), 5,000 Units, Subcutaneous, q8h CLARI insulin glargine-yfgn, 15 Units, Subcutaneous, Nightly insulin lispro, 0-5 Units, Subcutaneous, TID with meals insulin lispro, 0-3 Units, Subcutaneous, Twice at night mirabegron ER, 50 mg, Oral, Daily mometasone-formoterol, 2 puff, Inhalation, BID mupirocin, 1 Application, Each Nostril, BID pantoprazole, 40 mg, Oral, Daily [START ON 02/26/2025] pregabalin, 50 mg, Oral, Daily [4] PRN medications: acetaminophen, benzocaine, glucose OR dextrose 10 % OR dextrose 10 % OR glucagon (human recombinant), HYDROmorphone OR HYDROmorphone, ipratropium-albuterol, oxyCODONE, [COMPLETED] Insert peripheral IV AND [COMPLETED] Saline lock IV AND sodium chloride [5] * Progress Notes - Chuy Graham, - 02/25/2025 7:06 AM EDT Images from the original note were not included. MICU PROGRESS NOTE Summary of Presentation: Eileen May is a 64 y.o. female with PMHx significant for CAD s/p PCI, ICM w/ LVEF 35-40%, CVA w/ residual L-sided deficits s/p ICA stents, Fibromyalgia, Left AKA, insulin dependent T2DM, HTN, HLD, prior breast cancer s/p mastectomy, COPD, recurrent UTI's s/p cystoscopy w/ bilateral retrograde pyelogram w/ bilateral ureteral stent placement 01/31/25 with urology presenting from OSH withAHRF and AMS. Pt was intubated for airway protection on arrival to ED for GSC of 7. Pt was foundto be positive for Rhinovirus and had a negative infectious workup. She was extubated to AK w/o complications on 02/24/25. Events of past 24 hours: - no acute events overnight - was extubated 02/24/25 to AK, doing well, currently above goal on 2L Subjective: - patient seen and evaluated at bedside this morning. Patient is awake alert and states that she feels tired. Patient denied chest pain, worsening shortness of breath, headache or any other modifyingfactors at this time. Observed pt to have chill like tremor, concerns for possible medication withdrawal from meds being held during GEOVANNI but pt hemodynamically stable throughout. Will resume home meds today at appropriate doses -patient reiterates that she is glad to have the ET tube out be off the ventilator -patient's only concern is tooth pain from a tooth which broke 2 weeks prior to admission - will consult OMFS for tooth pain and will likely need panorex for evaluation Review of Systems: A 14 point ROS was completed and reviewed and is otherwise negative except as per HPI Last Recorded Vitals Blood pressure (!) 163/73, pulse 84, temperature 37.2 ??C (99 ??F), resp. rate (!) 27, height 1.626m (5' 4.02 ), weight 97.2 kg (214 lb 4.6 oz), SpO2 96%. O2 Delivery Method: Nasal cannula Physical Exam Physical Exam Constitutional: General: She is not in acute distress. HENT: Head: Normocephalic. Nose: Comments: NC in place Mouth/Throat: Dentition: Abnormal dentition. Dental tenderness and dental caries present. Eyes: General: No scleral icterus. Right eye: No discharge. Left eye: No discharge. Extraocular Movements: Extraocular movements intact. Cardiovascular: Rate and Rhythm: Normal rate and regular rhythm. Pulmonary: Effort: Pulmonary effort is normal. Breath sounds: No wheezing or rales. Comments: On 2L NC Abdominal: General: Abdomen is flat. Palpations: Abdomen is soft. Tenderness: There is no abdominal tenderness. Musculoskeletal: Comments: S/p L AKA Skin: General: Skin is warm and dry. Findings: No rash. Neurological: Mental Status: She is alert and oriented to person, place, and time. Mental status is at baseline. Results: I have personally reviewed the following labs and used them to guide clinical decision making. CBC WBC ?? Hb ?? Plt ?? Hct ?? ANC ?? INR ??, PTT ??, Anti-Xa ?? BMP Na 134 (L) Cl 97 BUN 34 (H) Glu 95 K 3.9 Co2 23 Cr 1.62 (H) Ca 8.9 iCa ?? Mg ??, Phos ?? Lactate ?? LFT AST ?? AlkPhos ?? T Prot ?? ALK ?? Bili ?? Alb ?? D.Bili ?? Results from last 7 days Lab Units 02/22/255 PH ART 7.45* PCO2 ART mm Hg 37 PO2 ART mm Hg 86 HCO3 ART mmol/L 25.7 BASE EXC ART mmol/L 1.7 Medications: atorvastatin, 40 mg, Oral, Nightly baclofen, 10 mg, Oral, TID clopidogrel, 75 mg, Oral, Daily DULoxetine, 60 mg, Oral, Daily Followed by [START ON 03/02/2025] DULoxetine, 30 mg, Oral, Daily heparin (porcine), 5,000 Units, Subcutaneous, q8h CLARI insulin glargine-yfgn, 15 Units, Subcutaneous, Nightly insulin lispro, 0-5 Units, Subcutaneous, TID with meals insulin lispro, 0-3 Units, Subcutaneous, Twice at night mirabegron ER, 50 mg, Oral, Daily mometasone-formoterol, 2 puff, Inhalation, BID mupirocin, 1 Application, Each Nostril, BID pantoprazole, 40 mg, Oral, Daily [START ON 02/26/2025] pregabalin, 50 mg, Oral, Daily Current Continuous Medications[1] Current PRN Medications[2] Imaging (past 24h): No new imaging studies Assessment and Plan Eileen May is a 64 y.o. female with PMHx significant for CAD s/p PCI, ICM w/ LVEF 35-40%, CVA w/ residual L-sided deficits s/p ICA stents, Fibromyalgia, Left AKA, insulin dependent T2DM, HTN, HLD, prior breast cancer s/p mastectomy, COPD, recurrent UTI's s/p cystoscopy w/ bilateral retrograde pyelogram w/ bilateral ureteral stent placement 01/31/25 with urology presenting from OSH withAHRF and AMS. Pt was intubated for airway protection on arrival to ED for GSC of 7. Pt was foundto be positive for Rhinovirus and had a negative infectious workup. She was extubated to AK w/o complications on 02/24/25. #Acute hypoxic respiratory failure requiring MV iso viral pneumonia with Rhinovirus c/b suspected OHS, improving - hypoxic on arrival to OSH w/ SpO2 88% on 2L - CTPE OSH no evidence of PE, diffuse bilateral ground glass opacifications - initial VBG 7.28/60/4, post-intubation VBG 7.33/49/27, PCR + for Rhinovirus - urine strep/legionella negative, PAL MURF, Bcx NGTD PLAN: - S/p extubation 02/24, AK for SPO2 92%+ - Supportive care for viral pneumonia iso + Rhinovirus - wean O2 as tolerated, goal O2% is > 88% - start dulera today and at d/c can resume home Breo #Left Upper Molar Pain #Abnormal Dentition - can see multiple cavities and very poor dentition along with broke molr - causing pt pain for the last 2 weeks PLAN: - consult OMFS for evaluation - if abscess or need for intervention plavix will need held but do not hold unless stated by OMFS and their need #Neurogenic bladder c/b hydronephrosis and hydroureter c/b CKD stage 3b #Non-oliguric GEOVANNI with Disorder of Fluid and Electrolytes, resolved - baseline Scr 1.6-1.8 - likely prerenal, given bilateral hydronephrosis is chronic - 01/31 underwent cystoscopy w/ bilateral retrograde pyelogram and bilateral ureteral stent placement for neurogenic bladder with hematuria - stents left in place on strings with parekh catheter, pt instructed to remove 02/04 at home - CT OSH bilateral hydronephrosis and hydroureter present, no evidence of stents - UA OSH + leuks and bacteria with cloudy urine - repeat UA at on arrival, shows no bacteria, + leuks, pyuria, negative nitrite; likely contaminated as parekh leaking poor and pt likely colonized and no leukocytosis, Ucx normal jesus PLAN: - strict I&O, renally dose medications, avoid nephrotoxic agents - caution with IV fluids as EF 35% - Hematuria resolved, will monitor renal function and volume status - consulted urology, recs in chart for parekh but plans to remove parekh today and have voiding trial - resume home meds today - on Mirabegron #HFrEF 2/2 [facility] - 11/2024 LVEF 35-40% - Current GDMT: coreg 12.5mg BID, SGLT2i contraindicated 2/2 recurrent UTIs, hyperK precludes spironolactone - evaluated by cardiology 10/2024 - NT-proBNP 1,542 PLAN: - patient dose not appear hypervolemic on exam, holding diuresis at this time - resume GDMT as able Resolved Conditions this admission: #Hypovolemic Hyponatremia, resolved - baseline Na 130-135 - Na 120 at OSH, 125 on arrival to [facility] - Serum osm wnl, urine osm 408 with Na 31 PLAN: -Na 132 7/6 #Acute Encephalopathy, resolved - metabolic vs toxic from cymbalta withdrawal, likely etiology is multifactorial in combination with hyponatremia and viral pna - was told to stop 90mg of Cymbalta on 02/20/25, no evidence of taper in for this - monitored serum Na per below - weaned sedation as tolerated to continue to assess mentation #Elevated alkaline phophatase, resolved - AST 13, ALT 19, alk phos 144 ->105 Chronic conditions: #Breast cancer s/p mastectomy: holding anastrazole pending med rec #CAD s/p PCI: atorvastatin #ICA stenosis s/p L ICA stent: Xarelto and Plavix; resume plavix and will investigate indication for xarelto. Will attempt to clarify DOAC indication with PCP today #CVA w/ residual L sided deficits: atorvastatin, Plavix #T2DM: A1c is 9.2%, on ssi, resume home glargine when eating PO #Chronic Pain: resumed home meds today F: full liquid carb 2, COUNTY TAX ASSESSOR eval A: oxy, acetaminophen, prn dilaudid IV, fentanyl patch S: - T: subQ Heparin H: >30 U: PPI G: SSI + home glargine when taking PO S: per protocol B: - I: parekh (remove today), PIV x3, external fecal bag (remove today) D: - Dispo: downgrade to acute today Code Status: Assume Full These diagnoses are medical relevant to the treatment plan and are present on admission: Fluid & Electrolyte Disorders with the following disturbances: Acidosis Malnutrition: Unspecified protein-calorie malnutrition Please note that all recommendations should be considered preliminary until this note is cosigned by the attending physician. Patient was seen and plan discussed with Dr. Hill. - Chuy Graham DO Internal Medicine PGY-2 Pager [phone]; Epic Chat preferred Procedures [1] [2] PRN medications: acetaminophen, benzocaine, glucose OR dextrose 10 % OR dextrose 10 % OR glucagon (human recombinant), HYDROmorphone OR HYDROmorphone, ipratropium-albuterol, oxyCODONE, [COMPLETED] Insert peripheral IV AND [COMPLETED] Saline lock IV AND sodium chloride Cosigned by Ludy Hill MD at 02/27/2025 3:28 PM EDT Associated attestation - Ludy Hill MD - 02/27/2025 3:28 PM EDT I saw and evaluated the patient with the resident/fellow. I discussed the case with the resident/fellow and agree with the findings and plan as documented. * Care Plan - Daniela Mcbride RN - 02/24/2025 8:05 PM EDT Problem: Infection Goal: Absence of Infection Signs and Symptoms Outcome: Ongoing, Progressing Intervention: Prevent or Manage Infection Flowsheets Taken 02/24/20251934 by Daniela Mcbride RN Isolation Precautions: precautions maintained Taken 02/23/2025 1254 by Temi Mao RN Fever Reduction/Comfort Measures: lightweight bedding Taken 02/22/20252233 by Daniela Mcbride RN Infection Management: aseptic technique maintained Problem: Adult Inpatient Plan of Care Goal: Plan of Care Review Outcome: Ongoing, Progressing Flowsheets Taken 02/24/20252002 Progress: improving Taken 02/22/20252233 Plan of Care Reviewed With: patient Goal: Patient-Specific Goal (Individualized) Outcome: Ongoing, Progressing Flowsheets (Taken 02/24/20251934) Patient/Family-Specific Goals (Include Timeframe): Pain willl be well managed overnight Individualized Care Needs: Pain control. Anxieties, Fears or Concerns: PT C/O pain Goal: Absence of Hospital-Acquired Illness or Injury Outcome: Ongoing, Progressing Intervention: Prevent Skin Injury Flowsheets Taken 02/24/20251934 by Daniela Mcbride RN Body Position: left turned Taken 02/24/2025 1700 by Delroy Bernal RN Skin Protection: incontinence pads utilized Intervention: Prevent and Manage VTE (Venous Thromboembolism) Risk Flowsheets (Taken 02/24/20251934) VTE Prevention/Management: bilateral SCDs (sequential compression devices) on Goal: Optimal Comfort and Wellbeing Outcome: Ongoing, Progressing Note: Pain control. See MAR Intervention: Monitor Pain and Promote Comfort Flowsheets (Taken 02/24/2025 0837 by Delroy Bernal RN) Pain Management Interventions: medication (see MAR) Goal: Readiness for Transition of Care Outcome: Ongoing, Progressing Intervention: Mutually Develop Transition Plan Flowsheets Taken 02/24/20252002 by Daniela Mcbride RN Equipment Currently Used at Home: none Current Outpatient/Agency/Support Group: assisted living facility Concerns to be Addressed: no discharge needs identified Taken 02/23/2025 1254 by Temi Mao RN Readmission Within the Last 30 Days: no previous admission in last 30 days Problem: Sepsis/Septic Shock Goal: Absence of Bleeding Outcome: Ongoing, Progressing Intervention: Monitor and Manage Bleeding Flowsheets (Taken 02/24/2025 0914 by Delroy Bernal RN) Bleeding Precautions: monitored for signs of bleeding Goal: Blood Glucose Level Within Target Range Outcome: Ongoing, Progressing Intervention: Optimize Glycemic Control Flowsheets (Taken 02/22/20252233) Hyperglycemia Management: blood glucose monitored Hypoglycemia Management: blood glucose monitored Goal: Absence of Infection Signs and Symptoms Outcome: Ongoing, Progressing Intervention: Initiate Sepsis Management Flowsheets Taken 02/24/20252002 Stabilization Measures: airway opened Taken 02/22/20252233 Infection Management: aseptic technique maintained Infection Prevention: environmental surveillance performed Intervention: Promote Stabilization Flowsheets Taken 02/24/20252002 by Daniela Mcbride RN Fluid/Electrolyte Management: electrolyte-binding therapy initiated Taken 02/23/2025 1254 by Temi Mao RN Lung Protection Measures: fluid excess minimized Fever Reduction/Comfort Measures: lightweight bedding Intervention: Promote Recovery Flowsheets Taken 02/24/2025 0800 by Delroy Bernal RN Activity Management: activity adjusted per tolerance Taken 02/23/2025 1254 by Temi Mao RN Sleep/Rest Enhancement: consistent schedule promoted natural light exposure provided relaxation techniques promoted Taken 02/23/2025 1021 by Janis Angulo Airway/Ventilation Management: pulmonary hygiene promoted oxygen therapy provided airway patency maintained position adjusted calming measures promoted positive pressure ventilation provided humidification applied * Consults - Rachel Harvey RD - 02/24/2025 10:15 AM EDTAssociated Order(s): IP CONSULT TO NUTRITION SERVICES Adult Nutrition Evaluation Note Eileen May 64 y.o. female CSN: [id number] Room/Bed 121/121A Nutrition evaluation type: assessment Reason for evaluation: provider consult Hospital course: Pt is a 64 y.o. female who presented from OSH on 02/22 with AHRF and AMS. Intubatedon arrival for airway protection and admitted to ICU. Extubated to nasal cannula this AM (02/24). Past medical/ surgical history: Past 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[1] Surgical History[2] Social history: reviewed Additional comments: 02/24: weekend coverage. Vitals and Basic Assessment: BP: 110/52 Temp: 36.7 ??C (98.1 ??F) Invasive Ventilator Initiated (ETT/Trach Only): Yes Oxygen Therapy: Supplemental oxygen O2 Delivery Method: Nasal cannula Dave Coma Scale Score: 11 Ray Scale Score: 14 Faizan/Cubbin Pressure Risk Score: 27 Edema: Generalized Allergies: NKFA per EMR Medications: Current Scheduled Medications[3] Current PRN Medications[4] Current Continuous Medications[5] Meds were reviewed: Yes Labs: Lab Results Component Value Date GLUCOSE 152 (H) 02/24/2025 CALCIUM 8.6 (L) 02/24/2025 NA 132 (L) 02/24/2025 K 4.9 02/24/2025 CO2 22 02/24/2025 CL 97 02/24/2025 BUN 40 (H) 02/24/2025 CREATININE 2.04 (H) 02/24/2025 PHOS 3.0 02/24/2025 MG 2.2 02/24/2025 HGBA1C 9.2 (H) 02/22/2025 POCT Glu: 135-255 mg/dL (02/22-02/24) Lab Results Component Value Date ALBUMIN 3.3 (L) 02/24/2025 Albumin is a negative acute-phase reactant, therefore it is not a good indicator of nutrition status. Anthropometrics: Height: 162.6 cm (5' 4.02 ) Weight: 96.2 kg (212 lb 1.3 oz) BMI (Calculated): 36.39 Weight Evaluation: Obese-Class 2 (BMI 35-39.9) [place] Body Weight (kg): 48.55 (adjusted for left AKA) Percent [place] Body Weight: 198 Adjusted Body Weight (kg): 60.5 Wt Readings from Last 10 Encounters: 02/24/25 96.2 kg (212 lb 1.3 oz) 01/24/25 85.7 kg (189 lb) 12/31/24 85.7 kg (189 lb) 12/20/24 85.7 kg (189 lb) 11/05/24 85.7 kg (189 lb) 10/12/24 85.8 kg (189 lb 3.2 oz) 09/26/24 86.2 kg (190 lb) 08/15/24 89.7 kg (197 lb 12 oz) 03/24/23 101 kg (223 lb) 10/04/22 101 kg (223 lb 8.7 oz) Estimated Needs: Kcal/ K-30 Kcal Provided: 7159-4370 Kcal Needs Based On: Adjusted weight (60.5 kg) Gm Protein/ Kg : 1.2-1.5 Protein Provided: 73-91 Protein Needs Based On: Adjusted weight (60.5 kg) Fluid Provided: 1 ml/kcal or per MD team Metabolic Cart Study Results: Current Nutrition Intake: Diet Supplements: None Diet Order: NPO Diet Experience and Nutrition History: Diet Education Provided: Will monitor Pertinent home medications: ascorbic acid, calcitriol, cholecalciferol, cyanocobalamin, ferrous sulfate, insulin, loperamide, magnesium oxide, MVI, ondansetron, Percocet, pantoprazole Druze needs: Nutrition Focused Physical Exam: Unable to Complete Exam: Weekend coverage Physical exam performed on (date): pending Assessment of Malnutrition: Nutrition Problem: Inadequate oral intake related to current clinical condition as evidenced by GCS 11, NPO diet order. Status of Nutrition Diagnosis: New Nutrition Interventions and Recommendations: PO diet advancement per [employer]ESSOR/MD team. TF recs if warranted: Diabetisource AC @ 10 ml/hr, advancing 10 ml Q4H to goal rate 65 ml/hr (1430 ml/day) Provides 1716 kcal, 86g protein, 143g CHO, 22g fiber, 84g fat, 1170 ml water and 114% RDIs vit/min. FW per MD team or 90 ml FW flush Q4H for maintenance needs. Insulin regimen per MD team. Nursing: as diet advances, please document all PO intakes in the I/Os section of Flowsheets daily. Nutrition Monitoring and Goals: Nutrition to start within 48 hours. Pt will maintain weight this admission. BG levels <200 mg/dL this admission. Will monitor diet advancement, PO intake, weight, skin, labs, nutrition status per acuity. Acuity Level: [address] [1] Past 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: Diagnosis Date Anxiety [...] BREAST SURGERY N/A Breast Surgery Reconstruction from [facility] BREAST SURGERY N/A Breast Surgery from [facility] CHOLECYSTECTOMY N/A Cholecystotomy from [facility] KIDNEY SURGERY N/A Kidney Surgery from [facility] KNEE SURGERY N/A Knee Surgery from [facility] MASTECTOMY N/A Breast Surgery Mastectomy from [facility] SHOULDER SURGERY Right Shoulder Surgery Right from [facility] [3] atorvastatin, 40 mg, Nasogastric, Nightly clopidogrel, 75 mg, Oral, Daily DULoxetine, 60 mg, Nasogastric, Daily heparin (porcine), 5,000 Units, Subcutaneous, q8h CLARI insulin regular, 0-5 Units, Subcutaneous, q6h CLARI ipratropium-albuterol, 3 mL, Nebulization, Once mupirocin, 1 Application, Each Nostril, BID pantoprazole, 40 mg, Intravenous, Daily polyethylene glycol, 17 g, Oral, Daily pregabalin, 25 mg, Nasogastric, Daily senna, 2 tablet, Oral, Nightly [4] PRN medications: acetaminophen, glucose OR dextrose 10 % OR dextrose 10 % OR glucagon (human recombinant), HYDROmorphone OR HYDROmorphone, oxyCODONE, [COMPLETED] Insert peripheralIV AND [COMPLETED] Saline lock IV AND sodium chloride [5] dexmedetomidine, 0.4-1.4 mcg/kg/hr, Last Rate: 1.2 mcg/kg/hr (02/24/25 1000) * Care Plan - Janis Angulo - 02/24/2025 9:54 AM EDT Problem: Mechanical Ventilation Invasive Goal: Effective Communication Outcome: Met Goal: Optimal Device Function Outcome: Met Goal: Mechanical Ventilation Liberation Outcome: Met Goal: Optimal Nutrition Delivery Outcome: Met Goal: Absence of Device-Related Skin and Tissue Injury Outcome: Met Goal: Absence of Ventilator-Induced Lung Injury Outcome: Met * Care Plan - Delroy Bernal RN - 02/24/2025 9:16 AM EDT Problem: Infection Goal: Absence of Infection Signs and Symptoms Outcome: Ongoing, Progressing Intervention: Prevent or Manage Infection Flowsheets Taken 02/24/2025 0800 by Delroy Bernal RN Isolation Precautions: precautions maintained contact droplet Taken 02/23/2025 1254 by Temi Mao RN Fever Reduction/Comfort Measures: lightweight bedding Problem: Adult Inpatient Plan of Care Goal: Plan of Care Review Outcome: Ongoing, Progressing Goal: Patient-Specific Goal (Individualized) Outcome: Ongoing, Progressing Goal: Absence of Hospital-Acquired Illness or Injury Outcome: Ongoing, Progressing Goal: Optimal Comfort and Wellbeing Outcome: Ongoing, Progressing Goal: Readiness for Transition of Care Outcome: Ongoing, Progressing Intervention: Mutually Develop Transition Plan Flowsheets (Taken 02/23/2025 1254 by Temi Mao RN) Readmission Within the Last 30 Days: no previous admission in last 30 days Problem: Mechanical Ventilation Invasive Goal: Effective Communication Outcome: Ongoing, Progressing Intervention: Ensure Effective Communication Flowsheets Taken 02/23/2025 1254 by Temi Mao RN Trust Relationship/Rapport: care explained Taken 02/22/20252235 by Daniela Mcbride RN Diversional Activities: other (see comments) Taken 02/22/20252233 by Daniela Mcbride, RN Communication Enhancement Strategies: call light answered in person communication board used Goal: Optimal Device Function Outcome: Ongoing, Progressing Intervention: Optimize Device Care and Function Flowsheets Taken 02/24/2025 0800 by Delroy Bernal RN Oral Care: mouth swabbed mouth suctioned Taken 02/23/2025 1021 by Janis Angulo Airway/Ventilation Management: pulmonary hygiene promoted oxygen therapy provided airway patency maintained position adjusted calming measures promoted positive pressure ventilation provided humidification applied Airway Safety Measures: mask valve resuscitator at bedside manual resuscitator/mask at bedside oxygen flowmeter at bedside high-efficiency antimicrobial filters maintained suction at bedside Goal: Mechanical Ventilation Liberation Outcome: Ongoing, Progressing Intervention: Promote Extubation and Mechanical Ventilation Liberation Flowsheets (Taken 02/23/2025 1254 by Temi Mao, RN) Environmental Support: calm environment promoted caregiver consistency promoted Goal: Optimal Nutrition Delivery Outcome: Ongoing, Progressing Intervention: Optimize Nutrition Delivery Flowsheets (Taken 02/24/2025 0914) Nutrition Support Management: weight trending reviewed Goal: Absence of Device-Related Skin and Tissue Injury Outcome: Ongoing, Progressing Intervention: Maintain Skin and Tissue Health Flowsheets (Taken 02/24/2025 0914) Device Skin Pressure Protection: absorbent pad utilized/changed adhesive use limited positioning supports utilized pressure points protected [id number] areas padded tubing/devices free from skin contact Goal: Absence of Ventilator-Induced Lung Injury Outcome: Ongoing, Progressing Intervention: Facilitate Lung-Protection Measures Flowsheets (Taken 02/23/2025 1254 by Temi Mao, RN) Lung Protection Measures: fluid excess minimized Intervention: Prevent Ventilator-Associated Pneumonia Flowsheets (Taken 02/24/2025 0800) Oral Care: mouth swabbed mouth suctioned Head of Bed (HOB) Positioning: HOB at 30-45 degrees Problem: Sepsis/Septic Shock Goal: Absence of Bleeding Outcome: Ongoing, Progressing Intervention: Monitor and Manage Bleeding Flowsheets (Taken 02/24/2025 0914) Bleeding Precautions: monitored for signs of bleeding Goal: Blood Glucose Level Within Target Range Outcome: Ongoing, Progressing Intervention: Optimize Glycemic Control Flowsheets (Taken 02/22/20252233 by Daniela Mcbride, RN) Hyperglycemia Management: blood glucose monitored Goal: Absence of Infection Signs and Symptoms Outcome: Ongoing, Progressing Intervention: Initiate Sepsis Management Flowsheets (Taken 02/22/20252233 by Daniela Mcbride, RN) Infection Prevention: environmental surveillance performed Problem: Restraint, Nonviolent Goal: Absence of Harm or Injury Outcome: Ongoing, Progressing Intervention: Protect Dignity, Rights and Personal Wellbeing Flowsheets (Taken 02/23/2025 1254 by Temi Mao RN) Trust Relationship/Rapport: care explained * Progress Notes - Luda aRlph MD - 02/24/2025 7:08 AM EDTAssociated Order(s): Critical Care Post-Procedure Diagnose(s): Hyponatremia; Acute encephalopathy; Acute respiratory failure with hypoxia and hypercapnia; Acute kidney injury superimposed on CKD (CMS/HCC); Chronic diastolic (congestive) heart failure (CMS/HCC); Chronic kidney disease, stage 3a (CMS/HCC); Sepsis with encephalopathy without septic shock, due to unspecified organism (CMS/HCC) Images from the original note were not included. MICU PROGRESS NOTE Length of Stay: 2 Summary of Presentation: Eileen May is a 64 y.o. female with PMHx significant for CAD s/p PCI, ICM w/ LVEF 35-40%, CVA w/ residual L-sided deficits s/p ICA stents, Fibromyalgia, Left AKA, insulin dependent T2DM, HTN, HLD, prior breast cancer s/p mastectomy, COPD, recurrent UTI's s/p cystoscopy w/ bilateral retrograde pyelogram w/ bilateral ureteral stent placement 01/31/25 with urology presenting from OSH withAHRF and AMS. Pt was intubated for airway protection on arrival to ED for GSC of 7. Events of past 24 hours: - no acute events overnight Subjective: SAT passed this morning. Afebrile. Net -652 with 955 of UOP. Extubated today. She was uncomfortabled/t ETT, doing much better after extubation. Review of Systems: Complete 14 point review of systems is negative except for positives documented in HPI Last Recorded Vitals Blood pressure 113/65, pulse 52, temperature 36.6 ??C (97.9 ??F), resp. rate 20, weight 96.2 kg (212 lb 1.3 oz), SpO2 98%. O2 Delivery Method: Mechanical ventilator Vent Mode: PRVC Invasive Vent Status (ETT, Trach Only): In use S VT: 400 mL Insp Time (sec): 0.8 sec Vent Mode: PRVC FiO2 (%): 50 % S RR: 20 S VT: 400 mL MAP (cm H2O): 10 Physical Exam Physical Exam Constitutional: General: She is not in acute distress. HENT: Head: Normocephalic. Nose: Comments: NC in place Eyes: Extraocular Movements: Extraocular movements intact. Cardiovascular: Rate and Rhythm: Normal rate and regular rhythm. Pulmonary: Effort: Pulmonary effort is normal. Breath sounds: No wheezing or rales. Comments: Extubated in AM Musculoskeletal: Comments: S/p L AKA Neurological: Mental Status: She is alert and oriented to person, place, and time. Mental status is at baseline. Results: I have personally reviewed the following labs and used them to guide clinical decision making. CBC WBC 9.39 Hb 9.1 (L) Plt 315 Hct 28.3 (L) ANC 6.64 (H) INR ??, PTT ??, Anti-Xa ?? BMP Na 132 (L) Cl 97 BUN 40 (H) Glu 152 (H) K 4.9 Co2 22 Cr 2.04 (H) Ca 8.6 (L) iCa 4.2 (L); 4.4 (L) Mg 2.2, Phos 3.0 Lactate ?? LFT AST 16 AlkPhos 105 T Prot 6.9 ALK 15 Bili <0.2 (L) Alb ?? D.Bili ?? Results from last 7 days Lab Units 02/22/25 2105 PH ART 7.45* PCO2 ART mm Hg 37 PO2 ART mm Hg 86 HCO3 ART mmol/L 25.7 BASE EXC ART mmol/L 1.7 Medications: atorvastatin, 40 mg, Nasogastric, Nightly clopidogrel, 75 mg, Oral, Daily DULoxetine, 60 mg, Nasogastric, Daily heparin (porcine), 5,000 Units, Subcutaneous, q8h CLARI insulin regular, 0-5 Units, Subcutaneous, q6h CLARI ipratropium-albuterol, 3 mL, Nebulization, Once mupirocin, 1 Application, Each Nostril, BID pantoprazole, 40 mg, Intravenous, Daily polyethylene glycol, 17 g, Oral, Daily pregabalin, 25 mg, Nasogastric, Daily senna, 2 tablet, Oral, Nightly Current Continuous Medications[1] Current PRN Medications[2] Imaging (past 24h): No new imaging studies Assessment and Plan Eileen May is a 64 year old female with PMHx significant for neurogenic bladder c/b recurrent UTI s/p cystoscopy with bilateral ureteral stent placement for hydronephrosis and hydroureter 01/31 with urology presenting as transfer from OSH with AMS and AHRF requiring MV. #Acute hypoxic respiratory failure requiring MV iso viral pneumonia with Rhinovirus c/b suspected OHS, improving - hypoxic on arrival to OSH w/ SpO2 88% on 2L - CTPE OSH no evidence of PE, diffuse bilateral ground glass opacifications - initial VBG 7.28/60/4, post-intubation VBG 7.33/49/27, PCR + for Rhinovirus - urine strep/legionella negative, PAL MURF, Bcx NGTD PLAN: - S/p extubation 02/24, NC for SPO2 92%+ - Supportive care for viral pneumonia iso + Rhinovirus #Non-oliguric GEOVANNI on CKD stage 3b with Disorder of Fluid and Electrolytes iso neurogenic bladder c/b hydronephrosis and hydroureter - baseline Scr 1.6-1.8 - likely prerenal, given bilateral hydronephrosis is chronic - 01/31 underwent cystoscopy w/ bilateral retrograde pyelogram and bilateral ureteral stent placement for neurogenic bladder with hematuria - stents left in place on strings with parekh catheter, pt instructed to remove 02/04 at home - CT OSH bilateral hydronephrosis and hydroureter present, no evidence of stents - UA OSH + leuks and bacteria with cloudy urine - repeat UA at on arrival, shows no bacteria, + leuks, pyuria, negative nitrite; likely contaminated as parekh leaking poor and pt likely colonized and no leukocytosis, Ucx normal jesus - IVF resuscitation with 500cc LR on arrival to PLAN: - strict I&O, renally dose medications, avoid nephrotoxic agents - caution with IV fluids as EF 35% - Scr downtrending to 2, Cystatin C worsened 2.3 -> 2.5 -Hematuria resolved, will monitor renal function and volume status with plan to replete IVF if volume down - consulted urology, recs below: - No acute urologic intervention - Statloc to secure parekh catheter - Ok to restart AC per primary team - Okay for nursing to irrigate if there is concern for clots. - Disconnect catheter drainage tubing from catheter. Via main outflow channel, flush ~20cc NS into catheter to dislodge any clot and withdraw back to remove any clots/urine. If patient has been retaining for significant period of time, keep withdrawing and/or let drain to bag. - Continue to irrigate by flushing 50cc NS into bladder and withdrawing same amount until urine is light pink without clots and flowing easily. If there is continued concern or difficult irrigating, contact Urology litigation counsel. #hypovolemic Hyponatremia, resolved - baseline Na 130-135 - Na 120 at OSH, 125 on arrival to [facility] - Serum osm wnl, urine osm 408 with Na 31 PLAN: -Na 132 02/24 #Acute Encephalopathy, resolved - metabolic vs infectious, cannot completely exclude stroke though very unlikely, most likely metabolic - was told to stop 90mg of Cymbalta on 02/20/25, no evidence of taper in for this PLAN: - monitor serum Na per below - wean sedation as tolerated to continue to assess mentation #HFrEF 2/2 ICM - 11/2024 LVEF 35-40% - Current GDMT: coreg 12.5mg BID, SGLT2i contraindicated 2/2 recurrent UTIs, hyperK precludes spironolactone - evaluated by cardiology 10/2024 - NT-proBNP 1,542 PLAN: - patient dose not appear hypervolemic on exam, holding diuresis at this time - resume GDMT as able #Elevated alkaline phophatase, resolved - AST 13, ALT 19, alk phos 144 ->105 Chronic conditions: #Breast cancer s/p mastectomy: holding anastrazole pending med rec #CAD s/p PCI: atorvastatin #ICA stenosis s/p L ICA stent: Xarelto and Plavix; resume plavix and will investigate indication for xarelto #CVA w/ residual L sided deficits: atorvastatin, Plavix #T2DM: A1c is 9.2%, on ssi, resume home glargine when eating PO F: NPO pending bedside swallow A: oxy, acetaminophen S: - T: pSQH H: >30 U: PPI G: SSI + home glargine when taking PO S: per protocol B: senna and Miramax I: parekh, PIV D: - Dispo: Possible downgrade if respiratory status is stable Code Status: Assume Full These diagnoses are medical relevant to the treatment plan and are present on admission: Fluid & Electrolyte Disorders with the following disturbances: Acidosis Malnutrition: Unspecified protein-calorie malnutrition Patient was seen and plan discussed with Dr. Ralph. Boyd Romano. Internal Medicine PGY-2 Pager [phone] Critical Care Performed by: Luda Ralph MD Authorized by: Luda Ralph MD Critical care provider statement: Critical care time (minutes): 31 Critical care time was exclusive of: Separately billable procedures and treating other patients andteaching time Critical care was time spent personally by me on the following activities: Development of treatmentplan with patient or surrogate, discussions with consultants, discussions with primary provider, evaluation of patient's response to treatment, examination of patient, obtaining history from patient or surrogate, ventilator management, review of old charts, ordering and review of radiographic studies, ordering and review of laboratory studies and ordering and performing treatments and interventions I assumed subsequent critical care for this patient from a provider in my division, on the same day: no Critical care statement: I saw and evaluated the patient with the resident/ fellow. I discussed thecase with the resident/ fellow and agree with the findings and plan as documented. Comments: 64 YO F with history of obesity and neurogenic bladder admitted with acute encephalopathy and acutemixed respiratory failure requiring intubation and mechanical ventilation. Improving overall and successfully extubated early today. Continues to not show signs to suggest a need for antimicrobial therapy. Hyponatremia has improved, and likely reflects hypovolemia in setting of acute illness. [1] dexmedetomidine, 0.4-1.4 mcg/kg/hr, Last Rate: 1.4 mcg/kg/hr (02/24/25 0422) [2] PRN medications: acetaminophen, glucose OR dextrose 10 % OR dextrose 10 % OR glucagon (human recombinant), HYDROmorphone OR HYDROmorphone, oxyCODONE, [COMPLETED] Insert peripheralIV AND [COMPLETED] Saline lock IV AND sodium chloride * Care Plan - Di Landers - 02/24/2025 1:28 AM EDT Problem: Mechanical Ventilation Invasive Goal: Optimal Device Function Outcome: Ongoing, Progressing * Teleconsult - Marques Parson MD - 02/23/2025 10:07 PM EDT 02/23/25 Eileen May Asked by RN to review and reorder restraints. Chart reviewed and patient visualized. Patient has continued need for restraints. Order renewed. Marques Parson MD * Care Plan - Daniela Mcbride RN - 02/23/2025 9:14 PM EDT Problem: Infection Goal: Absence of Infection Signs and Symptoms Outcome: Ongoing, Progressing Problem: Adult Inpatient Plan of Care Goal: Plan of Care Review Outcome: Ongoing, Progressing Flowsheets (Taken 02/22/2025 2234) Progress: improving Plan of Care Reviewed With: patient Goal: Patient-Specific Goal (Individualized) Outcome: Ongoing, Progressing Flowsheets (Taken 02/23/20251999) Patient/Family-Specific Goals (Include Timeframe): pt will remin comfortable overnight Individualized Care Needs: Pain contorl Anxieties, Fears or Concerns: Pt anxious and expressing pain Goal: Absence of Hospital-Acquired Illness or Injury Outcome: Ongoing, Progressing Goal: Optimal Comfort and Wellbeing Outcome: Ongoing, Progressing Goal: Readiness for Transition of Care Outcome: Ongoing, Progressing Intervention: Mutually Develop Transition Plan Flowsheets (Taken 02/23/2025 1254 by Temi Mao, JIMI) Current Outpatient/Agency/Support Group: assisted living facility Readmission Within the Last 30 Days: no previous admission in last 30 days Problem: Mechanical Ventilation Invasive Goal: Effective Communication Outcome: Ongoing, Progressing Goal: Optimal Device Function Outcome: Ongoing, Progressing Goal: Mechanical Ventilation Liberation Outcome: Ongoing, Progressing Goal: Optimal Nutrition Delivery Outcome: Ongoing, Progressing Goal: Absence of Device-Related Skin and Tissue Injury Outcome: Ongoing, Progressing Goal: Absence of Ventilator-Induced Lung Injury Outcome: Ongoing, Progressing Problem: Sepsis/Septic Shock Goal: Absence of Bleeding Outcome: Ongoing, Progressing Goal: Blood Glucose Level Within Target Range Outcome: Ongoing, Progressing Intervention: Optimize Glycemic Control Flowsheets (Taken 02/22/20252233) Hyperglycemia Management: blood glucose monitored Goal: Absence of Infection Signs and Symptoms Outcome: Ongoing, Progressing Problem: Restraint, Nonviolent Goal: Absence of Harm or Injury Outcome: Ongoing, Progressing Intervention: Implement Least Restrictive Safety Strategies Flowsheets (Taken 02/22/20252235) Diversional Activities: other (see comments) Intervention: Protect Dignity, Rights and Personal Wellbeing Flowsheets (Taken 02/23/2025 1254 by Temi aMo, RN) Trust Relationship/Rapport: care explained Intervention: Protect Skin and Joint Integrity Flowsheets (Taken 02/23/20251999) Body Position: left turned * Consults - Jake Sheets MD - 02/23/2025 11:51 AM EDTAssociated Order(s): Inpatient consult to Urology Inpatient consult to Urology Consult performed by: Jake Sheets MD Consult ordered by: Luda Ralph MD [facility] Urology Consult Note 02/23/25 Service Requesting Consultation: MICU CC: Hematuria HPI: Eileen May is a 64 y.o. female with a past medical history of CAD s/p PCI, ICM w/ LVEF 35-40%, CVA w/ residual L-sided deficits s/p ICA stents on xeralto, Left AKA, insulin dependent T2DM, HTN, HLD, prior breast cancer s/p mastectomy, COPD, bilateral hydronephrosis and neurogenic bladder who presented to [facility] ED as a transfer from OSH with hyponatremia, encephalopathy and shortness of breath. Patient was found to be in acute hypoxic respiratory failure with GCS of [address] scan was obtained at OSH which demonstrated moderate bilateral hydroureteronephrosisdown to the level of the bladder. The patient was also noted to have gross hematuria upon arrival. U rology was consulted for evaluation. The patient is noted to be AF, HDS, and intubated/mechanically intubated.. The patient's labs are notable for 7.98, hgb 9.2, cr 2.26 (Baseline 1.6-1.8). UA was notable for proteinuria, large blood, positive leukocytes, negative nitrites, >50 RBC, >50 WBC, and negative bacteria. Urine culture is pending. Patient was recently evaluated in our clinic with UDS on 12/20 demonstrating poor compliance and immediate VUR on the left. She underwent a CTU due to gross hematuria, which demonstrated bilateral hydronephrosis down to the bladder with extensive filling defects in the bilateral collecting systems, ureters, and bladder. She was taken to the operating room on 01/31/25 for bilateral retrograde pyelograms and stent placement. The bladder was noted to have a small-volume with friable mucosa throughoutbut no masses or lesions. Right retrograde pyelogram demonstrated moderate hydronephrosis but no obvious filling defect. There was return of significant white debris after wire placement. Left retrogr abram pyelogram demonstrated moderate hydronephrosis. Contrast remained in both kidney's and ureters several minutes after shooting the retrograde. Stents were removed on 02/04/25. Past 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: reviewed Past 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[1] Past Surgical History: reviewed Surgical History[2] Family History: reviewed Family History[3] Social History: reviewed Social History[4] Outpatient Medications: Current Outpatient Medications Medication Instructions acetaminophen (TYLENOL) [...] mg, 2 times daily mirabegron ER (MYRBETRIQ) 50 mg, Oral, Every morning multivitamin (Theragran-M) tablet 1 tablet, [...] Daily, Take one pill by mouth daily. ROS: Review of Systems All other systems reviewed and are negative. PHYSICAL EXAM: Temp: [36.8 ??C (98.2 ??F)-37.6 ??C (99.7 ??F)] 37.1 ??C (98.8 ??F) Heart Rate: [59-90] 70 Resp: [11-32] 27 BP: (87-132)/(49-77) 132/62 SpO2: [90 %-99 %] 95 % GEN: NAD HEENT: NCAT, EOMI RESP: Equal bilateral chest rise, normal work of breathing CV: Regular rate, appears well perfused ABD: Nondistended : Parekh catheter in place draining yellow urine with some sediment EXT: No gross deformities MSK: Full ROM in BL UE NEURO: No focal deficits, alert and oriented PSYCH: Normal mood and affect LABS: Results from last 7 days Lab Units 02/22/25 2036 WBC 10*3/uL 7.98 HEMOGLOBIN g/dL 9.2* HEMATOCRIT % 28.5* PLATELETS 10*3/uL 329 Results from last 7 days Lab Units 02/23/25 0834 02/23/25 0204 02/23/25 0005 SODIUM mmol/L 127* < > 127* 127* POTASSIUM mmol/L -- -- 4.9 CHLORIDE mmol/L -- -- 91* CO2 mmol/L -- -- 23 BUN mg/dL -- -- 42* CREATININE mg/dL -- -- 2.26* EGFR mL/min/1.73m*2 -- -- 23.5 GLUCOSE mg/dL -- -- 180* CALCIUM mg/dL -- -- 9.0 < > = values in this interval not displayed. Results from last 7 days Lab Units 02/22/25 2201 COLOR UA Red SPEC GRAV U 1.010 PH UA 6.5 PROTEIN UR mg/dL >=300* GLUCOSE UA mg/dL Negative KETONES UA mg/dL Negative LEUKOCYTES UA Large* NITRITE UA Negative RBC, URINE /HPF >50* WBC, URINE /HPF >50* SQUAMOUS /HPF 0 - 2 BACTERIA UR HPF Negative Imaging: I have personally reviewed the imaging below: CT A/P 02/22/25: Moderate to severe bilateral hydroureteronephrosis down to the level of the urinary bladder. There are bilateral punctate renal stones that are nonobstructing. The patient has a thickened contractile bladder consistent with prior URS findings. Hospital Problem List: Principal Problem: Sepsis ([facility]) Assessment: Eileen May is a 64 y.o. female who presented from outside hospital due to concerns of encephalopathy, GEOVANNI, and acute hypoxic respiratory failure. She was intubated shortly after arrival due to worsening pulmonary status. A CT scan was obtained which demonstrates bilateral hyd roureteronephrosis down to level of the bladder. She was also having gross hematuria following catheter placement. Urology was consulted for evaluation. In regards to the patient's gross hematuria, she was noted on her recent operative visit to have friable bladder mucosa. She is additionally on Xarelto for carotid stents. It is likely that catheterization irritated her bladder mucosa leading to transient gross hematuria. This is a chronic issue for her that we are following on an outpatient basis. On bedside evaluation her catheter was draining yellow urine with a small amount of clot and sediment. We would recommend continuing her Parekh catheter and irrigating it as needed to ensure it is draining properly. If the catheter is not draining well, it may need to be upsized to a 20 [place] catheter to allow for easier drainage. We would additio marilyn recommend that the Parekh catheter was secured via StatLock to ensure that is not further trauma to the patient's bladder due to tugging on the catheter. In regards to the patient's hydronephrosis, this again is a chronic problem that we are continuing to evaluate. She recently had bilateral stents placed that were removed on 02/04/2025. We would not recommend intervention at this time unless there is further decline clinical status. Plan: - No acute urologic intervention - Statloc to secure parekh catheter - Ok to restart AC per primary team - Okay for nursing to irrigate if there is concern for clots. - Disconnect catheter drainage tubing from catheter. Via main outflow channel, flush ~20cc NS into catheter to dislodge any clot and withdraw back to remove any clots/urine. If patient has been retaining for significant period of time, keep withdrawing and/or let drain to bag. - Continue to irrigate by flushing 50cc NS into bladder and withdrawing same amount until urine is light pink without clots and flowing easily. If there is continued concern or difficult irrigating, contact Urology litigation counsel. Jake Sheets MD Urology PGY-2 [1] Past 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: Diagnosis Date Anxiety [...] [facility] KIDNEY SURGERY N/A Kidney Surgery from [facility] KNEE SURGERY N/A Knee Surgery from [facility] MASTECTOMY N/A Breast Surgery Mastectomy from [facility] SHOULDER SURGERY Right Shoulder Surgery Right from [facility] [3] Family History Problem Relation Name Age of Onset Cancer Mother Stroke Mother Cancer Father Menorrhagia Father Breast cancer Mother's Sister Cancer Mother's Sister Malig Hyperthermia Neg Hx Anesthesia problems Neg Hx [4] Social History Tobacco Use Smoking status: Former Current packs/day: 0.00 Types: Cigarettes Quit date: 07/22/2022 Years since quittin.5 Passive exposure: Past Smokeless tobacco: Never Vaping Use Vaping status: Never Used Substance Use Topics Alcohol use: Not Currently Drug use: Never Cosigned by Doug Chapman MD at 02/24/2025 9:33 PM EDT Associated attestation - Doug Chapman MD - 02/24/2025 9:33 PM EDT I saw and evaluated the patient with the resident/fellow. I discussed the case with the resident/fellow and agree with the findings and plan as documented. * Care Plan - Janis Angulo - 02/23/2025 10:21 AM EDT Problem: Mechanical Ventilation Invasive Goal: Optimal Device Function Outcome: Ongoing, Progressing Intervention: Optimize Device Care and Function Flowsheets (Taken 02/23/2025 1021) Airway/Ventilation Management: pulmonary hygiene promoted oxygen therapy provided airway patency maintained position adjusted calming measures promoted positive pressure ventilation provided humidification applied Airway Safety Measures: mask valve resuscitator at bedside manual resuscitator/mask at bedside oxygen flowmeter at bedside high-efficiency antimicrobial filters maintained suction at bedside * Progress Notes - Luda Ralph MD - 02/23/2025 9:10 AM EDTAssociated Order(s): Critical Care Post-Procedure Diagnose(s): Hyponatremia; Acute encephalopathy; Acute respiratory failure with hypoxia and hypercapnia; Acute kidney injury superimposed on CKD (CMS/HCC); Chronic kidney disease, stage 3a ([facility]/HCC); Sepsis with encephalopathy without septic shock, due to unspecified organism ([facility]) Images from the original note were not included. MICU PROGRESS NOTE Length of Stay: 1 Summary of Presentation: Eileen May is a 64 y.o. female with PMHx significant for CAD s/p PCI, ICM w/ LVEF 35-40%, CVA w/ residual L-sided deficits s/p ICA stents, Fibromyalgia, Left AKA, insulin dependent T2DM, HTN, HLD, prior breast cancer s/p mastectomy, COPD, recurrent UTI's s/p cystoscopy w/ bilateral retrograde pyelogram w/ bilateral ureteral stent placement 01/31/25 with urology presenting from OSH withAHRF and AMS. Pt was intubated for airway protection on arrival to ED for GSC of 7. Respiratory status was 88%on 2L NC and VBG 7.28/60/41 Events of past 24 hours: - no acute events overnight - urology consulted morning of 02/23/25 - unable to extubate this morning d/t tachypnea on PS Subjective: - pt seen and evaluated at bedside this morning. This provider and fellow physician observed pt following commands and shaking head to wanting the ETT out, so MV mode switched to PS 5/5 and pt ultimately failed and was switched back to PRVC due to tachypnea. - she was sedated with precedex Review of Systems: Unable to obtain a complete 14 point review of systems due to patient status and intubation Last Recorded Vitals Blood pressure 110/65, pulse 72, temperature 37 ??C (98.6 ??F), temperature source Bladder, resp. rate 21, weight 94 kg (207 lb 3.7 oz), SpO2 90%. Invasive Ventilator Initiated (ETT/Trach Only): Yes O2 Delivery Method: Mechanical ventilator Vent Mode: PS/CPAP Invasive Vent Status (ETT, Trach Only): In use S VT: 400 mL Insp Time (sec): 0.8 sec Vent Mode: PS/CPAP FiO2 (%): 50 % S RR: 20 S VT: 400 mL MAP (cm H2O): 9.2 Physical Exam Physical Exam Physical Exam Constitutional: General: She is not in acute distress. Appearance: She is obese. She is not ill-appearing. Interventions: She is intubated. HENT: Head: Normocephalic. Mouth/Throat: Mouth: Mucous membranes are moist. Pharynx: Oropharynx is clear. Eyes: General: No scleral icterus. Conjunctiva/sclera: Conjunctivae normal. Cardiovascular: Rate and Rhythm: Normal rate and regular rhythm. Pulses: Normal pulses. Heart sounds: Normal heart sounds. No murmur heard. Pulmonary: Effort: No respiratory distress. She is intubated. Breath sounds: No wheezing. No rhonchi Abdominal: General: There is no distension. Palpations: Abdomen is soft. Tenderness: There is no abdominal tenderness. Musculoskeletal: Right lower leg: No edema. Comments: S/p L AKA Skin: General: Skin is warm and dry. Capillary Refill: Capillary refill takes less than 2 seconds. Coloration: Skin is not jaundiced or pale. Neurological: Comments: following verbal commands this morning Results: I have personally reviewed the following labs and used them to guide clinical decision making. CBC WBC 7.98 Hb 9.2 (L) Plt 329 Hct 28.5 (L) ANC 6.66 (H) INR ??, PTT ??, Anti-Xa 1.12 BMP Na 125 (L) Cl 91 (L) BUN 42 (H) Glu 180 (H) K 4.9 Co2 23 Cr 2.26 (H) Ca 9.0 iCa 4.6 Mg 2.5 (H), Phos 2.4 (L) Lactate 0.8 LFT AST 13 AlkPhos 144 (H) T Prot 7.3 ALK 19 Bili <0.2 (L) Alb ?? D.Bili ?? Results from last 7 days Lab Units 02/22/25 2105 PH ART 7.45* PCO2 ART mm Hg 37 PO2 ART mm Hg 86 HCO3 ART mmol/L 25.7 BASE EXC ART mmol/L 1.7 Medications: Current Scheduled Medications[1] Current Continuous Medications[2] Current PRN Medications[3] Imaging (past 24h): I personally visualized and interpreted all of the imaging studies below and I agree with the formal interpretation. XR Chest 1 View Result Date: 02/22/2025 Impression: Patient is intubated, endotracheal tube terminates approximately 3.9 cm superior to andressa. Cardiomegaly and pulmonary vascular congestion with mild bibasilar atelectasis. No pneumothorax. No acute osseous abnormality. Enteric tube terminates in the stomach. Nonspecific bowel gas pattern about the upper abdomen. CRITICAL RESULT: No. COMMUNICATION: Per this written report. Drafted by Jin Yoder MD on 02/22/2025 7:44 PM Final report signed by Jin Yoder MD on 02/22/2025 7:46 PM XR Abdomen 1 View Result Date: 02/22/2025 Impression: Patient is intubated, endotracheal tube terminates approximately 3.9 cm superior to andressa. Cardiomegaly and pulmonary vascular congestion with mild bibasilar atelectasis. No pneumothorax. No acute osseous abnormality. Enteric tube terminates in the stomach. Nonspecific bowel gas pattern about the upper abdomen. CRITICAL RESULT: No. COMMUNICATION: Per this written report. Drafted by Jin Yoder MD on 02/22/2025 7:44 PM Final report signed by Jin Yoder MD on 02/22/2025 7:46 PM Assessment and Plan Eileen May is a 64 year old female with PMHx significant for neurogenic bladder c/b recurrent UTI s/p cystoscopy with bilateral ureteral stent placement for hydronephrosis and hydroureter 01/31 with urology presenting as transfer from OSH with AMS and AHRF requiring MV. #Acute hypoxic respiratory failure requiring MV iso viral pneumonia with Rhinovirus c/b suspected OHS - hypoxic on arrival to OSH w/ SpO2 88% on 2L - CTPE OSH no evidence of PE, diffuse bilateral ground glass opacifications - initial VBG 7.28/60/4, post-intubation VBG 7.33/49/27 - progressive AMS with GCS 6-7 on arrival to [facility] therefore intubated for airway protection - pt is + for Rhinovirus - pt had +mrsa nares but low likelihood of bacteria pneumonia so no vanc at this time - urine strep/legionella negative - failed SBT this morning d/t tachypnea PLAN: - Continue MV, wean FiO2 as able for goal SpO2 >88% - Wean sedation as tolerated, SAT/SBT daily - Discontinue abx coverage as very low likelihood of bacterial pneumonia iso + Rhinovirus - continue to f/u PAL cultures - following blood cultures, NGTD - repeat VBG in am - if pt to decompensate will add vanc/cefepime to her for coverage #Non-oliguric GEOVANNI on CKD stage 3b with Disorder of Fluid and Electrolytes iso neuroenic bladder c/bhydronephrosis and hydroureter - baseline Scr 1.6-1.8 - likely prerenal, however possibly post-obstructive given bilateral hydronephrosis - 01/31 underwent cystoscopy w/ bilateral retrograde pyelogram and bilateral ureteral stent placement for neurogenic bladder with hematuria - stents left in place on strings with parekh catheter, pt instructed to remove 02/04 at home - CT OSH bilateral hydronephrosis and hydroureter present, no evidence of stents - UA OSH + leuks and bacteria with cloudy urine - repeat UA at on arrival, shows no bacteria, + leuks, pyuria, negative nitrite; likely contaminated as parekh leaking poor and pt likely colonized and no leukocytosis - IVF resuscitation with 500cc LR on arrival to PLAN: - follow up urine cultures, will treat if + or if pt with symptoms or worsening hemodynamics - strict I&O, renally dose medications, avoid nephrotoxic agents - caution with IV fluids as EF 35% - will trend creatinine, cystatin C ordered - consulted urology, recs below: - No acute urologic intervention - Statloc to secure parekh catheter - Ok to restart AC per primary team - Okay for nursing to irrigate if there is concern for clots. - Disconnect catheter drainage tubing from catheter. Via main outflow channel, flush ~20cc NS into catheter to dislodge any clot and withdraw back to remove any clots/urine. If patient has been retaining for significant period of time, keep withdrawing and/or let drain to bag. - Continue to irrigate by flushing 50cc NS into bladder and withdrawing same amount until urine is light pink without clots and flowing easily. If there is continued concern or difficult irrigating, contact Urology litigation counsel. #Hyponatremia - baseline Na 130-135 - Na 120 at OSH, 125 on arrival to [facility] PLAN: - will continue to monitor BID at this time - pending urine osm, urine Na, serum osm - goal to not correct more than 6-8 meq in 24hr period #Acute Encephalopathy, resolving - metabolic vs infectious, cannot completely exclude stroke though very unlikely, most likely metabolic - was told to stop 90mg of Cymbalta on 02/20/25, no evidence of taper in for this PLAN: - monitor serum Na per below - wean sedation as tolerated to continue to assess mentation - repeat cmp, cbc with diff, lytes in morning #HFrEF 2/2 ICM - 11/2024 LVEF 35-40% - Current GDMT: coreg 12.5mg BID, SGLT2i contraindicated 2/2 recurrent UTIs, hyperK precludes spironolactone - evaluated by cardiology 10/2024 - NT-proBNP 1,542 PLAN: - patient dose not appear hypervolemic on exam, holding diuresis at this time - resume GDMT as able #Elevated LFT's - AST 13, ALT 19, alk phos 144 PLAN: - will continue to monitor - repeat CMP in AM Chronic conditions: #Breast cancer s/p mastectomy: holding anastrazole pending med rec #CAD s/p PCI: atorvastatin #ICA stenosis s/p L ICA stent: Xarelto and Plavix okay to resume as urology does not plan for intervention #CVA w/ residual L sided deficits: atorvastatin, Plavix #T2DM: A1c is 9.2%, on ssi, holding home glargine for now and will re-assess tomorrow F: NPO A: dilaudid, oxy-acetaminophen S: precedex T: pLOV H: >30 U: PPI G: SSI S: per protocol B: senna and Miramax I: ETT, NG, parekh, PIV x3 D: Dispo: ICU Code Status: Assume Full These diagnoses are medical relevant to the treatment plan and are present on admission: Fluid & Electrolyte Disorders with the following disturbances: Acidosis Malnutrition: Unspecified protein-calorie malnutrition Please note that all recommendations should be considered preliminary until this note is cosigned by the attending physician. Patient was seen and plan discussed with Dr. Ralph. - Chuy Graham, DO Internal Medicine PGY-2 Pager [phone]; Epic Chat preferred Critical Care Performed by: Luda Ralph MD Authorized by: Luda Ralph MD Critical care provider statement: Critical care time (minutes): 36 Critical care time was exclusive of: Separately billable procedures and treating other patients andteaching time Critical care was time spent personally by me on the following activities: Development of treatmentplan with patient or surrogate, discussions with consultants, discussions with primary provider, evaluation of patient's response to treatment, examination of patient, obtaining history from patient or surrogate, ventilator management, review of old charts, ordering and review of radiographic studies, ordering and review of laboratory studies and ordering and performing treatments and interventions I assumed subsequent critical care for this patient from a provider in my division, on the same day: no Critical care statement: I saw and evaluated the patient with the resident/ fellow. I discussed thecase with the resident/ fellow and agree with the findings and plan as documented. Comments: 64 YO F with history of obesity and neurogenic bladder admitted with acute encephalopathy and acutemixed respiratory failure requiring intubation and mechanical ventilation. There is no evidence of a bacterial pneumonia, and will discontinue abx as this is favored to represent primarily a viral process. Will optimize respiratory mechanics and volume status. [1] atorvastatin, 40 mg, Nasogastric, Nightly azithromycin, 500 mg, Intravenous, q24h DULoxetine, 60 mg, Nasogastric, Daily heparin (porcine), 5,000 Units, Subcutaneous, q8h CLARI insulin regular, 0-5 Units, Subcutaneous, q6h CLARI ipratropium-albuterol, 3 mL, Nebulization, Once mupirocin, 1 Application, Each Nostril, BID pantoprazole, 40 mg, Intravenous, Daily piperacillin-tazobactam, 4.5 g, Intravenous, q8h vancomycin (Vancocin) intermittent dosing, 1 each, Intravenous, See admin instructions [2] dexmedetomidine, 0.4-1.4 mcg/kg/hr, Last Rate: 0.8 mcg/kg/hr (02/23/25804) [3] PRN medications: acetaminophen, glucose OR dextrose 10 % OR dextrose 10 % OR glucagon (human recombinant), HYDROmorphone OR HYDROmorphone, [COMPLETED] Insert peripheral IV AND[COMPLETED] Saline lock IV AND sodium chloride * Care Plan - Denise Cespedes MD - 02/23/2025 1:33 AM EDT Holding home plavix and xarelto pending Urology evaluation in AM in case of need for operative intervention. Started ppx heparin in the meantime. * Care Plan - Daniela Mcbride RN - 02/22/2025 10:37 PM EDT Problem: Sepsis/Septic Shock Goal: Absence of Infection Signs and Symptoms 02/22/20252235 by Daniela Mcbride RN Outcome: Ongoing, Progressing 02/22/20252233 by Daniela Mcbride RN Outcome: Ongoing, Progressing Problem: Infection Goal: Absence of Infection Signs and Symptoms 02/22/20252235 by Daniela Mcbride RN Outcome: Ongoing, Progressing 02/22/2025 223 by Daniela Mcbride RN Outcome: Ongoing, Progressing Intervention: Prevent or Manage Infection Flowsheets Taken 02/22/20252233 Infection Management: aseptic technique maintained Fever Reduction/Comfort Measures: fluid intake increased Taken 02/22/2025 2200 Isolation Precautions: precautions initiated Problem: Adult Inpatient Plan of Care Goal: Plan of Care Review 02/22/20252235 by Daniela Mcbride RN Outcome: Ongoing, Progressing 02/22/20252233 by Daniela Mcbride RN Outcome: Ongoing, Progressing Flowsheets (Taken 02/22/2025 223) Progress: improving Plan of Care Reviewed With: patient Goal: Patient-Specific Goal (Individualized) 02/22/20252235 by Daniela Mcbride RN Outcome: Ongoing, Progressing 02/22/20252233 by Daniela Mcbride RN Outcome: Ongoing, Progressing Goal: Absence of Hospital-Acquired Illness or Injury 02/22/20252235 by Daniela Mcbride RN Outcome: Ongoing, Progressing 02/22/20252233 by Daniela Mcbride RN Outcome: Ongoing, Progressing Intervention: Identify and Manage Fall Risk Flowsheets (Taken 02/22/20252233) Safety Promotion/Fall Prevention: activity supervised assistive device/personal items within reach nonskid shoes/slippers when out of bed Intervention: Prevent Skin Injury Flowsheets (Taken 02/22/20252199) Body Position: right turned Intervention: Prevent and Manage VTE (Venous Thromboembolism) Risk Flowsheets (Taken 02/22/20252199) VTE Prevention/Management: bilateral SCDs (sequential compression devices) on Intervention: Prevent Infection Flowsheets (Taken 02/22/20252233) Infection Prevention: environmental surveillance performed Goal: Optimal Comfort and Wellbeing 02/22/20252235 by Daniela Mcbride RN Outcome: Ongoing, Progressing 02/22/20252233 by Daniela Mcbride RN Outcome: Ongoing, Progressing Intervention: Monitor Pain and Promote Comfort Flowsheets (Taken 02/22/20252233) Pain Management Interventions: medication (see MAR) Intervention: Provide Person-Centered Care Flowsheets (Taken 02/22/20252233) Trust Relationship/Rapport: care explained choices provided Goal: Readiness for Transition of Care 02/22/20252235 by Daniela Mcbride RN Outcome: Ongoing, Progressing 02/22/20252233 by Daniela Mcbride RN Outcome: Ongoing, Progressing Problem: Mechanical Ventilation Invasive Goal: Effective Communication 02/22/20252235 by Daniela Mcbride RN Outcome: Ongoing, Progressing 02/22/20252233 by Daniela Mcbride RN Outcome: Ongoing, Progressing Intervention: Ensure Effective Communication Flowsheets (Taken 02/22/20252233) Trust Relationship/Rapport: care explained choices provided Communication Enhancement Strategies: call light answered in person communication board used Goal: Optimal Device Function 02/22/20252235 by Daniela Mcbride RN Outcome: Ongoing, Progressing 02/22/20252233 by Daniela Mcbride RN Outcome: Ongoing, Progressing Goal: Mechanical Ventilation Liberation 02/22/20252235 by Daniela Mcbride RN Outcome: Ongoing, Progressing 02/22/20252233 by Daniela Mcbride RN Outcome: Ongoing, Progressing Goal: Optimal Nutrition Delivery 02/22/20252235 by Daniela Mcbride RN Outcome: Ongoing, Progressing 02/22/2025 223 by Daniela Mcbride RN Outcome: Ongoing, Progressing Goal: Absence of Device-Related Skin and Tissue Injury 02/22/20252235 by Daniela Mcbride RN Outcome: Ongoing, Progressing 02/22/2025 223 by Daniela Mcbride RN Outcome: Ongoing, Progressing Goal: Absence of Ventilator-Induced Lung Injury 02/22/20252235 by Daniela Mcbride RN Outcome: Ongoing, Progressing 02/22/2025 223 by Daniela Mcbride RN Outcome: Ongoing, Progressing Problem: Sepsis/Septic Shock Goal: Absence of Bleeding 02/22/20252235 by Daniela Mcbride RN Outcome: Ongoing, Progressing 02/22/20252233 by Daniela Mcbride RN Outcome: Ongoing, Progressing Goal: Blood Glucose Level Within Target Range 02/22/20252235 by Daniela Mcbride RN Outcome: Ongoing, Progressing 02/22/2025 223 by Daniela Mcbride RN Outcome: Ongoing, Progressing Intervention: Optimize Glycemic Control Flowsheets (Taken 02/22/20252233) Hyperglycemia Management: blood glucose monitored Hypoglycemia Management: blood glucose monitored Goal: Absence of Infection Signs and Symptoms 02/22/20252235 by Daniela Mcbride RN Outcome: Ongoing, Progressing 02/22/20252233 by Daniela Mcbride RN Outcome: Ongoing, Progressing Problem: Restraint, Nonviolent Goal: Absence of Harm or Injury Outcome: Ongoing, Progressing Intervention: Implement Least Restrictive Safety Strategies Flowsheets (Taken 02/22/20252235) Immigration Patrol Inspector Protection: torso covered tubing secured Diversional Activities: other (see comments) Intervention: Protect Dignity, Rights and Personal Wellbeing Flowsheets (Taken 02/22/20252233) Trust Relationship/Rapport: care explained choices provided Intervention: Protect Skin and Joint Integrity Flowsheets Taken 02/22/20252235 Skin Protection: hydrocolloids used drying agents applied Taken 02/22/20252199 Range of Motion: active ROM (range of motion) encouraged Body Position: right turned * Progress Notes - Young, Ab C, PharmD - 02/22/2025 10:34 PM EDT Pharmacokinetic Consult - Therapeutic Drug Monitoring HPI and Hospital Course: Eileen May is a 64 y.o. female presenting from OSH with AMS & AHRF. Pharmacy consulted to assist with management of vancomycin therapy for pneumonia. Random concentration therapeutic drug monitoring performed due to unstable renal function. Creatinine, Plasma (mg/dL) Date/Time Value 02/22/2025 1841 2.39 (H) Estimated Creatinine Clearance: 26 mL/min (A) (by C-G formula based on SCr of 2.39 mg/dL (H)). No results found for: VANCORANDOM Assessment/Plan 1. Patient is Appropriate for redosing at this time. Recommend to dose with vancomycin 1750 mg IV followed by intermittent dosing. 2. Monitor renal function (SCr and BUN) and UOP at least 2-3x weekly or more frequently if renal function changes. 3. Recommend random vancomycin level with AM labs on 02/23. Pharmacy will continue to follow, Ab Fabian PharmD 02/22/2025 10:33 PM * Progress Notes - Bobby Parra MD - 02/22/2025 10:23 PM EDT Asked by RN to review and reorder restraints. Chart reviewed and patient visualized. Patient has continued need for restraints. Order renewed. * H&P - Rachel Shipman MD - 02/22/2025 8:33 PM EDT MICU HISTORY & PHYSICAL EXAM 02/22/25 CHIEF COMPLAINT: Chief Complaint Patient presents with Altered Mental Status HISTORY OF PRESENT ILLNESS: Eileen May is a 64 y.o. female with PMHx significant for CAD s/p PCI, ICM w/ LVEF 35-40%, CVA w/ residual L-sided deficits s/p ICA stents, Left AKA, insulin dependent T2DM, HTN, HLD, prior breast cancer s/p mastectomy, COPD, recurrent UTI's s/p cystoscopy w/ bilateral retrograde pyelogram w/ bilateral ureteral stent placement 01/31/25 with urology presenting from OSH with AHRF and AMS. Patient presented to OSH from [facility] due to concern for hyponatremia, encephalopathy and shortness of breath. On arrival to OSH ED patient HDS with O2 saturation 88% on 2L NC. Initially patient alert and oritented at OSH, complaining of shortness of breath. IVF deferred due to patient not being tachycardic or febrile and appeared hypervolemic on exam. UA + leukocytes and bacteria, urine appeared cloudy concerning for infection therefore given dose of ceftriaxone. CTH no acute intracranial abnormalities. CT C/A/P no evidence of focal consolidation, bilateral groundglass opacities p resent, bilateral hydronephrosis and hydroureter with bladder wall thickening and no evidence of ureteral stents. Given new O2 requirement at OSH, concern for COPD exacerbation, given duonebs and azithromycin. Transferred to [facility] for higher level of care. On arrival to [facility] ED, patient GCS 6-7, VBG7.28/60/41, patient intubated for airway protection. MICU consulted for admission. PAST MEDICAL HISTORY: She has a past medical history of Anxiety, Breast cancer, Cerebral infarction, unspecified (CMS/HCC), COPD (chronic obstructive pulmonary disease) (CMS/HCC), Depression, Fibromyalgia, History of falling, Hypertension, Personal history of other diseases of the musculoskeletal system and connective tissue, Personal history of other endocrine, nutritional and metabolic disease, Personal history of other specified conditions, and Personal history of urinary (tract) infections. SURGICAL HISTORY: She has a past surgical history that includes Mastectomy (N/A); Breast surgery (N/A); Cholecystectomy (N/A); Breast surgery (N/A); Kidney surgery (N/A); Knee surgery (N/A); and Shoulder surgery (Right). FAMILY HISTORY: Family History[1] SOCIAL HISTORY: She reports that she quit smoking about 2 years ago. Her smoking use included cigarettes. She has been exposed to tobacco smoke. She has never used smokeless tobacco. She reports that she does not currently use alcohol. She reports that she does not use drugs. REVIEW OF SYSTEMS Review of Systems Unable to perform ROS: Intubated ALLERGIES: Sulfa drugs, Ultram [tramadol], Hydrocodone, Pedi-pre tape spray [wound dressing adhesive], and Wellbutrin [bupropion] HOME MEDICATIONS: Prior to Admission medications Medication Sig Start Date End Date Taking? Authorizing Provider acetaminophen (Tylenol) 500 MG tablet Take 1 tablet by mouth every 6 hours as needed. 01/17/20 Kati Womack MD anastrozole (Arimidex) 1 MG chemo tablet Take 1 tablet (1 mg total) by mouth daily. 01/10/21 Kati Womack MD ARIPiprazole (Abilify) 5 MG tablet Take 1 tablet (5 mg) by mouth 1 (one) time each day. Kati Womack MD Artificial Tears ophthalmic solution Administer 2 drops into both eyes 3 times a day as needed. Patient not taking: Reported on 01/31/2025 11/23/24 Kati Womack MD ascorbic acid (Vitamin C) 500 MG tablet Take 1 tablet by mouth twice a day. Kati Womack MD atorvastatin (Lipitor) 40 MG tablet Take 1 tablet by mouth daily. 08/29/17 Kati Womack MD azelastine (Astelin) 0.1 % nasal spray Administer 2 sprays into each nostril 2 times a day. Use in each nostril as directed Kati Womack MD baclofen (Lioresal) 10 MG tablet Take 1 tablet by mouth 3 times a day. 01/17/20 Kati Womack MD Breo Ellipta 100-25 MCG/ACT aerosol powder Inhale 1 puff daily. Patient not taking: Reported on 01/31/2025 09/13/22 Kati Womack MD calcitriol (Rocaltrol) 0.25 MCG capsule Take 1 capsule by mouth daily. Kati Womack MD carvedilol (Coreg) 12.5 MG tablet Take 1 tablet by mouth 2 times a day with meals. 01/17/20 Kati Womack MD cholecalciferol (Vitamin D3) 25 MCG (1000 UT) tablet Take 1 tablet by mouth 2 times a day. Kati Womack MD clopidogrel (Plavix) 75 MG tablet Take 1 tablet by mouth daily. 01/17/20 Kati Womack MD cyanocobalamin (Vitamin B-12) 1000 MCG tablet Take 1 tablet by mouth daily. Kati Womack MD D-Mannose 500 MG capsule Take 2,000 mg by mouth 1 (one) time each day. 09/26/24 09/26/25 Cayla Erazo APRN, DNP dextromethorphan-guaiFENesin (Robitussin-DM) 10-100 MG/5ML liquid Take 10 mL by mouth every 4 (four) hours if needed. Patient not taking: Reported on 01/31/2025 01/17/20 Kati Womack MD diphenhydrAMINE (Benadryl) 25 MG tablet Take 1 tablet by mouth 2 times a day as needed for itching.Kati Womack MD DULoxetine (Cymbalta) [address] capsule Take 1 capsule by mouth daily. Do not crush or chew. Take with 60mg capsule for a 90mg dose Kati Womack MD DULoxetine (Cymbalta) [address] capsule Take 1 capsule by mouth daily. Do not crush or chew. Take with 30mg capsule for a 90mg dose Kati Womack MD estradiol (Estrace) 0.1 MG/GM vaginal cream Insert 1 gram into the vagina 3x/week 09/26/24 Cayla Erazo APRN, DNP fentaNYL (Duragesic) 12 MCG/HR Place 1 patch on the skin every 3rd (third) day. 08/22/24 Verna Wu MD ferrous sulfate 325 (65 Fe) MG tablet Take 1 tablet by mouth daily with breakfast. Kati Womack MD fluticasone (Flonase) 50 MCG/ACT nasal spray Administer 1 spray into each nostril 2 times a day. 01/17/20 Kati Womack MD guaiFENesin (GUAIASORB PO) Take 10 mL by mouth every 4 hours as needed. Kati Womack MD insulin aspart, w/niacinamide, (Fiasp) 100 UNIT/ML solution vial Inject as directed 2 (two) times aday. Per sliding scale @ 1130 and 1630 Kati Womack MD insulin glargine (Basaglar KwikPen) 100 UNIT/ML injection pen Inject 70 Units under the skin 2 times a day. @ 0630 and 2000 Kati Womack MD ipratropium-albuterol (Duo-Neb) 0.5-2.5 mg/3 mL nebulizer solution Take 3 mL by nebulization every 6 hours as needed. Kati Womack MD loperamide (Imodium) 2 MG capsule Take 1 capsule by mouth every 4 hours as needed. 09/16/20 Kati Womack MD magnesium oxide (Mag-Ox) 400 mg tablet Take 1 tablet by mouth 2 times a day. Kati Womack MD mirabegron ER (Myrbetriq) 25 MG tablet Take 2 tablets by mouth every morning. 01/31/25 01/31/26 Gerry Cullen DO multivitamin (Theragran-M) tablet Take 1 tablet by mouth daily. Kati Womack MD ondansetron (Zofran) 4 MG tablet Take 1 tablet by mouth every 6 hours as needed. 01/17/20 Kati Womack MD oxyCODONE-acetaminophen (Percocet) 5-325 MG tablet Take 1 tablet by mouth 2 (two) times a day if needed for severe pain. 08/22/24 Doug Wu MD pantoprazole (ProtoNix) 20 MG EC tablet Take 1 tablet by mouth daily before breakfast. 01/08/21 Kati Womack MD pregabalin (Lyrica) 50 MG capsule Take 1 capsule (50 mg) by mouth 2 (two) times a day. 08/22/24 Doug Wu MD rivaroxaban (Xarelto) 15 MG tablet Take 1 tablet by mouth every evening. Take with food. Kati Womack MD traZODone (Desyrel) 150 MG tablet Take 2 tablets by mouth nightly. 01/16/21 Kati Womack MD traZODone (Desyrel) 300 MG tablet 12/13/23 Kati Womack MD trospium (Sanctura) 20 MG tablet Take 1 tablet (20 mg) by mouth 2 (two) times a day. 09/26/24 09/26/25 Cayla Erazo APRN, DNP Vibegron 75 MG tablet Take 75 mg by mouth daily. Take one pill by mouth daily. Patient not taking: Reported on 01/31/2025 12/20/24 12/20/25 Cayla Erazo APRN, DNP INPATIENT MEDICATIONS: Current Medications[2] VITALS: Blood pressure 87/56, pulse 75, temperature 36.9 ??C (98.4 ??F), temperature source Oral, resp. rate 21, weight 93.5 kg (206 lb 2.1 oz), SpO2 98%. PHYSICAL EXAM: Physical Exam Constitutional: General: She is not in acute distress. Appearance: She is obese. She is not ill-appearing. Interventions: She is intubated. HENT: Head: Normocephalic. Mouth/Throat: Mouth: Mucous membranes are moist. Pharynx: Oropharynx is clear. Eyes: General: No scleral icterus. Conjunctiva/sclera: Conjunctivae normal. Cardiovascular: Rate and Rhythm: Normal rate and regular rhythm. Pulses: Normal pulses. Heart sounds: Normal heart sounds. No murmur heard. Pulmonary: Effort: No respiratory distress. She is intubated. Breath sounds: No wheezing. Abdominal: General: There is no distension. Palpations: Abdomen is soft. Tenderness: There is no abdominal tenderness. Musculoskeletal: Right lower leg: No edema. Comments: S/p L AKA Skin: General: Skin is warm and dry. Capillary Refill: Capillary refill takes less than 2 seconds. Coloration: Skin is not jaundiced or pale. Neurological: Comments: Unable to assess 2/2 sedation Psychiatric: Comments: Unable to assess 2/2 sedation LABS: Labs in last 18 hours: CBC WBC 7.98 Hb 9.2 (L) Plt 329 Hct 28.5 (L) ANC 6.66 (H) INR ??, PTT ??, Anti-Xa ?? BMP Na 125 (L) Cl 89 (L) BUN 42 (H) Glu 144 (H) K 4.6 Co2 26 Cr 2.39 (H) Ca 9.0 iCa 4.3 (L) Mg ??, Phos ?? Lactate 0.8 LFT AST 13 AlkPhos 144 (H) T Prot 7.3 ALK 19 Bili <0.2 (L) Alb ?? D.Bili ?? Results from last 7 days Lab Units 02/22/25 2105 PH ART 7.45* PCO2 ART mm Hg 37 PO2 ART mm Hg 86 HCO3 ART mmol/L 25.7 BASE EXC ART mmol/L 1.7 IMAGING: I personally visualized and interpreted all of the imaging studies below and I agree with formal interpretation: OSH CTH, CTPE, CT A/P, CXR ASSESSMENT & PLAN: Eileen May is a 64 year old female with PMHx significant for neurogenic bladder c/b recurrent UTI s/p cystoscopy with bilateral ureteral stent placement for hydronephrosis and hydroureter 01/31 with urology presenting as transfer from OSH with AMS and AHRF requiring MV. Acute hypoxic respiratory failure requiring MV iso possible pneumonia - hypoxic on arrival to OSH w/ SpO2 88% on 2L - CTPE OSH no evidence of PE, diffuse bilateral ground glass opacifications - initial VBG 7.28/60/4, post-intubation VBG 7.33/49/27 - progressive AMS with GCS 6-7 on arrival to [facility] therefore intubated for airway protection PLAN - Admit to MICU - Continue MV, wean FiO2 as able for goal SpO2 >88% - Wean sedation as tolerated, SAT/SBT daily - Broad spectrum abx: vanc/zosyn/azith - Infectious work up pending: PAL, procal, blood cx, MRSA nares, respiratory viral panel, urine strep/legionella - q4-6h vbg Acute Encephalopathy - metabolic vs infectious, cannot definitively rule out stroke - broad spectrum abx per above - obtain CTA H/N given CVA history - monitor serum Na, 500cc LR per below - wean sedation as tolerated to assess mentation - trend Na q4h, repeat bmp and cbc in am Non-oliguric GEOVANNI on CKD stage 3b - baseline Scr 1.6-1.8 - likely prerenal, however possibly post-obstructive given bilateral hydronephrosis - CT OSH evidence of bilateral hydronephrosis w/ hydroureter - parekh catheter placement - UA w/ microscopy and cx pending - IVF resuscitation with 500cc LR - strict I&O, renally dose medications, avoid nephrotoxic agents UTI iso neuroenic bladder c/b hydronephrosis and hydroureter - 01/31 underwent cystoscopy w/ bilateral retrograde pyelogram and bilateral ureteral stent placement for neurogenic bladder with hematuria - stents left in place on strings with parekh catheter, pt instructed to remove 02/04 at home - CT OSH bilateral hydronephrosis and hydroureter present, no evidence of stents - UA OSH + leuks and bacteria with cloudy urine PLAN - UA w/ reflex to culture - replace parekh catheter - zosyn per above - consider urology consult in AM given recurrence of hydronephrosis/hydroureter Hyponatremia - baseline Na 130-135 - Na 120 at OSH, 125 on arrival to [facility] - will continue to monitor with q4h Na HFrEF 2/2 [facility] - 11/2024 LVEF 35-40% - Current GDMT: coreg 12.5mg BID, SGLT2i contraindicated 2/2 recurrent UTIs, hyperK precludes spironolactone - evaluated by cardiology 10/2024 - patient dose not appear hypervolemic on exam, hold diuresis at this time - bedside TTE - hs troponin, repeat NT-proBNP - repeat EKG Elevated LFT's - AST 13, ALT 19, alk phos 144 - will continue to monitor - repeat CMP in AM Chronic conditions: Breast cancer s/p mastectomy: holding anastrazole pending med rec CAD s/p PCI: atorvastatin ICA stenosis s/p L ICA stent: Xarelto and Plavix CVA w/ residual L sided deficits: atorvastatin, Plavix F: NPO A: dilaudid S: prop T: pLOV H: >30 U: PPI G: SSI S: B: I: ETT, NG, parekh, PIV x2 D: Vanc, zosyn, azith Dispo: ICU Code Status: Assume Full These diagnoses are medical relevant to the treatment plan and are present on admission: Fluid & Electrolyte Disorders with the following disturbances: Acidosis Malnutrition: Unspecified protein-calorie malnutrition Rachel Shipman MD PGY-3, Internal Medicine Pager: [phone] Procedures [1] Family History Problem Relation Name Age of Onset Cancer Mother Stroke Mother Cancer Father Menorrhagia Father Breast cancer Mother's Sister Cancer Mother's Sister Malig Hyperthermia Neg Hx Anesthesia problems Neg Hx [2] Current Facility-Administered Medications Medication Dose Route Frequency Provider Last Rate Last Admin acetaminophen (Tylenol) tablet 650 mg 650 mg Oral q4h PRN Kelsi Cartwright MD glucose (Glutose) 40 % oral gel 15-30 grams of glucose 15-30 grams of glucose Sublingual q15 min PRN Kelsi Cartwright MD Or dextrose 10 % (D10W) bolus 125 mL 125 mL Intravenous q15 min PRN Kelsi Cartwright MD Or dextrose 10 % (D10W) bolus 250 mL 250 mL Intravenous q15 min PRN Kelsi Cartwright MD Or glucagon (human recombinant) injection 1 mg 1 mg Intramuscular q15 min PRN Kelsi Cartwright MD HYDROmorphone (Dilaudid) bolus from bag 0.25 mg Intravenous q10 min PRN Opolis, Leon B, DO 0.25 mg at 02/22/251953 Or HYDROmorphone (Dilaudid) bolus from bag 0.5 mg Intravenous q10 min PRN Opolis, Leon B, DO 0.5 mg at 02/22/251926 hydromorphone 20 mg in NS 100 mL infusion (200 mcg/mL) 0.25-2 mg/hr Intravenous Titrated Opolis, Leon B, DO 1.25 mL/hr at 02/22/251926 0.25 mg/hr at 02/22/251926 ipratropium-albuterol (Duo-Neb) 0.5-2.5 mg/3 mL nebulizer solution 3 mL 3 mL Nebulization Once Opolis, Leon B, DO mupirocin (Bactroban) 2 % ointment 1 Application 1 Application Each Nostril BID Kelsi Cartwright MD pantoprazole (Protonix) injection 40 mg 40 mg Intravenous Daily Kelsi Cartwright MD 40 mg at phenylephrine in NS (Vitor-Synephrine) 100 mcg/mL prefilled syringe - Pyxis Override Pull propofol (Diprivan) infusion 10 mg/mL 10-50 mcg/kg/min Intravenous Titrated Luda Morton MD 14.03 mL/hr at 02/22/252010 25 mcg/kg/min at 02/22/252010 sodium chloride 0.9 % flush 3 mL 3 mL Intravenous PRN Kelsi Cartwright MD Current Outpatient Medications Medication Sig Dispense Refill [...] eyes 3 times a day as needed. (Patient not taking: Reported on 01/31/2025) ascorbic acid (Vitamin C) 500 MG tablet [...] MCG/ACT aerosol powder Inhale 1 puff daily. (Patient not taking: Reported on 01/31/2025) calcitriol (Rocaltrol) 0.25 MCG capsule Take 1 [...] (four) hours if needed. (Patient not taking: Reported on 01/31/2025) diphenhydrAMINE (Benadryl) 25 MG tablet Take 1 [...] by mouth every morning. 60 tablet 11 multivitamin (Theragran-M) tablet Take 1 tablet by [...] mouth nightly. traZODone (Desyrel) 300 MG tablet trospium (Sanctura) 20 MG tablet Take 1 tablet (20 mg) by mouth 2 (two) times a day. 60 tablet 11 Vibegron 75 MG tablet Take 75 mg by mouth daily. Take one pill by mouth daily. (Patient not taking:Reported on 01/31/2025) 30 tablet 11 Cosigned by Bobby Parra MD at 02/22/2025 10:36 PM EDT Associated attestation - Bobby Parra MD - 02/22/2025 10:36 PM EDT I saw and evaluated the patient with the resident/fellow via [facility] ICU audio- visual support as available. I discussed the case with the resident/fellow and agree with the findings and plan as documented. * Hospital Course - Kelsi Cartwright MD - 02/22/2025 8:10 PM EDT 64F PMH CVA L sided deficits, CHF, recent bilateral ureteral stents placed who presents from OSH with worsening SOA, altered mentation. COPD, CVA L side deficits, CHF OSH: SOA, confusion Worked up and transferred due to multiple med comorbidities CHF, UTI, AHRF Decompensated in clinical status en route. GCS 8-9 on arrival, not very responsive. Intubated for airway protection. Labwork remarkable for UTI Rocephin OSH: ceftriaxone, azith, duonebs CT-PE, CTHAP: no acute findings Steroids in ED [facility] ED -> transferred here. VBG completed prior to intubation. No family at bedside. Was full code at OSH. No ESBL resistant bugs grown in past. -vanc, zosyn for broad coverage of presumed HAP with azithromycin for 3-day coverage -BNP pending * ED Procedure Note - Leon Wallace DO - 02/22/2025 6:13 PM EDTAssociated Order(s): Intubation Procedure Reason: Airway protection Intubation Performed by: Leon Wallace DO Authorized by: Luda Morton MD Consent: Consent obtained: Emergent situation Consent given by: Patient Attending Supervision?: yes Pre-procedure details: Indications: airway protection and altered consciousness Patient status: Altered mental status Look externally: no concerns Mouth opening - incisor distance: 3 or more finger widths Hyoid-mental distance: 3 or more finger widths Hyoid-thyroid distance: 2 or more finger widths Mallampati score: III Obstruction: none Neck mobility: normal Pharmacologic strategy: RSI Induction agents: Etomidate Paralytics: Succinylcholine Procedure details: Preoxygenation: Nonrebreather mask CPR in progress: no Number of attempts: 1 Successful intubation attempt details: Intubation method: Oral Intubation technique: video assisted Laryngoscope blade: Mac 3 Bougie used: no Grade view: I Tube size (mm): 7.5 Tube visualized through cords: yes Placement assessment: ETT at teeth/gumline (cm): 22 Tube secured with: ETT weiner Breath sounds: Equal Placement verification: chest rise, colorimetric ETCO2, CXR verification, direct visualization, equal breath sounds and waveform ETCO2 CXR findings: Appropriate position Post-procedure details: Procedure completion: Tolerated Leon Wallace DO Resident 02/22/252202 Cosigned by Luda Morton MD at 02/25/2025 9:50 PM EDT Associated attestation - Luda Morton MD - 02/25/2025 9:50 PM EDT I saw and evaluated the patient with the resident/fellow. I discussed the case with the resident/fellow and agree with the findings and plan as documented. I was present for the entirety of the procedure. * ED Provider Notes - Leon Wallace DO - 02/22/2025 6:13 PM EDT - HPI Chief Complaint Patient presents with Altered Mental Status HPI Patient is a 64-year-old female with a past medical history of COPD, history of CVA with left-sideddeficits type 2 diabetes, CHF who presented to the outside hospital or dyspnea and intermittent confusion. She was transferred due to multiple medical complexity. She was found to have urinary tract infection outside hospital and Parekh was placed. She was given Rocephin and azithromycin at outside hospital as well as duo nebs due to some concern for wheezing. She was found to have hyponatremia aswell as acidosis and was treated for a COPD exacerbation at outside hospital. Per EMS patient was at nursing facility where she was found to be 84% on room air she is placed on 4 L and increased up to 96%. At outside hospital she had a CT head completed which no acute intracranial abnormalities. CTPE was also completed with no abnormalities or pulmonary embolism. Patient History Past 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[1] Surgical History[2] Family History[3] Social History[4] Allergies: Allergies[5] Physical Exam ED Triage Vitals Temp Heart Rate Resp BP 02/22/25 1821 02/22/25 1821 02/22/25182002/22/251820 36.9 ??C (98.4 ??F) 78 11 120/74 SpO2 Temp Source Heart Rate Source Patient Position 02/22/25182002/22/251820 -- -- 93 % Oral BP Location FiO2 (%) -- 02/22/251854 60 % Physical Exam Constitutional: General: She is in acute distress. Appearance: She is ill-appearing. HENT: Mouth/Throat: Mouth: Mucous membranes are dry. Eyes: Pupils: Pupils are equal, round, and reactive to light. Cardiovascular: Rate and Rhythm: Normal rate. Pulses: Normal pulses. Pulmonary: Breath sounds: Wheezing present. Abdominal: General: Abdomen is flat. Palpations: Abdomen is soft. Musculoskeletal: Comments: Left BKA, no significant pretibial edema Skin: General: Skin is warm and dry. Neurological: Mental Status: She is disoriented. Comments: GCS 9 Dave Coma Scale Score: 11 ED Course & MDM - Assessment: 64 y.o. female presents to ED with complaint of AMS. It should be noted that the chronic conditionsincludes COPD, CHF, CKD, which currently is not at goal therapy. This complicates the clinical picture because it Comorbidities: may be exacerbating symptoms, increases the amount and complexity of data to be reviewed, and increases the risk for morbidity Differential Diagnosis: CHF exacerbation, COPD exacerbation, metabolic encephalopathy related to UTI, electrolyte abnormality, pneumonia, pulmonary embolism, bronchitis, intra-abdominal infection, diverticulitis, intracranial hemorrhage In order to fully explore the differential diagnosis the following treatments and tests were ordered: ED Medication Administration from 02/22/2025 1501 to 02/22/2025 1908 Date/Time Order Dose Route Action 02/22/2025 1901 EDT propofol (Diprivan) infusion 10 mg/mL 20 mcg/kg/min Intravenous New Bag 02/22/2025 1906 EDT phenylephrine in NS (Vitor-Synephrine) 100 mcg/mL prefilled syringe - Pyxis Override Pull -- Not Given All Other Orders Ordered Status Ordering Provider 02/22/25 185 Triglycerides Every Mon/Hermelinda Comments: Please draw lab from area not near where Propofol is infusing. If Propofol is discontinued. Triglyceride monitoring is not indicated. Start Status Ordering Provider 02/25/25 0600 Scheduled LUDA MORTON 02/28/25 0600 Scheduled MORTON, LUDA Cisneros 03/04/25 0600 Scheduled MORTON, LUDA Cisneros 03/07/25 0600 Scheduled MORTON, LUDA Cisneros 03/11/25 0600 Scheduled MORTON, LUDA Cisneros 03/14/25 0600 Scheduled MORTON, LUDA Cisneros 03/18/25 0600 Scheduled MORTON, LUDA Cisneros 03/21/25 0600 Scheduled MORTONLUDA Stevens Ordered MORTONLUDA Stevens 02/22/25 185 SBT - Assess for SBT readiness and complete SBT trial when criteria met Daily Order ID Start Status Ordering Provider [id number] 02/23/25 0800 Ordered MORTONLUDA Stevens 02/24/25 0600 Scheduled MORTON, LUDA Cisneros 02/25/25 0600 Scheduled MORTON, LUDA Cisneros 02/26/25 0600 Scheduled MORTON, LUDA Cisneros 02/27/25 0600 Scheduled MORTONLUDA Stevens Ordered LUDA MORTON 02/22/25 185 Suction secretions Every 8 hours Ordered LUDA MORTON 02/22/25 185 POCT Arterial Blood Gas GEM Once Comments: to Be Drawn AFTER Intubation Ordered LUDA MORTON 02/22/25 185 Vital Signs Every 1 hour Ordered LUDA MORTON 02/22/25 185 Ventilator - Adult - Vent Mode: PRVC/APV; Set Tidal Volume (mL): 450; PEEP (cm H2O): 5; Set Resp Rate: 24; Titrate O2 for sat goal of (%): 92% Continuous Order ID Start Status Ordering Provider [id number] 02/22/25 1859 Ordered LUDA MORTON [id number] 02/22/25 2000 Completed LUDA MORTON [id number] 02/23/25 0800 Ordered LUDA MORTON T 02/23/251999 Scheduled MORTONLUDA 02/24/25 0800 Scheduled MORTON, LUDA Cisneros 02/24/251999 Scheduled MORTON, LUDA T 02/25/25 0800 Scheduled MORTON, LUDA T 02/25/251999 Scheduled MORTON LUDA Cisneros 02/26/25 0800 Scheduled MORTON, LUDA Cisneros 02/26/251999 Scheduled MORTON, LUDA Cisneros Ordered MORTON LUDA Cisneros 02/22/251857 End Tidal co2 Monitoring Continuous Order ID Start Status Ordering Provider [id number] 02/22/251858 Ordered MORTONLUDA Stevens [id number] 02/22/251999 Completed MORTON LUDA Cisneros [id number] 02/23/25 08 Ordered MORTON LUDA Cisneros 02/23/251999 Scheduled MORTON LUDA Cisneros 02/24/25 0800 Scheduled MORTON LUDA Cisneros 02/24/251999 Scheduled MORTON LUDA Cisneros 02/25/25 0800 Scheduled MORTON LUDA Cisneros 02/25/251999 Scheduled MORTON LUDA Cisneros 02/26/25 08 Scheduled MORTON LUDA Cisneros 02/26/251999 Scheduled MORTON LUDA Cisneros Ordered MORTON LUDA Cisneros 02/22/251857 SAT-Spontaneous Awakening Trial Sedation vacations and assess readiness to extubatedaily and prn Until discontinued Ordered LUDA MORTON 02/22/251857 Adjust HOB (specify) 30 degrees (30-45 degrees) Once Ordered LUDA MORTON 02/22/251857 Swab oral cavity every 2 hours and PRN to cleanse and maintain oral mucosal integrityUntil discontinued Ordered LUDA MORTON 02/22/251857 [place] teeth every 12 hours Until discontinued Ordered MORTONLUDA Stevens 02/22/251857 Continuous Pulse Oximetry Until discontinued Ordered LUDA MORTON 02/22/251857 PT eval and treat Until therapy completed Ordered MORTONLUDA Stevens 02/22/251857 OT eval and treat Until therapy completed Ordered LUDA MORTON 02/22/251852 ICU Target Pain Score Until discontinued Comments: Initiate and titrate analgesia to attain goal CPOT first prior to initiating sedation unless otherwise ordered. Goal is to provide adequate pain management prior to initiating sedative agents. Target consistent patient goal CPOT as ordered. Document CPOT per nursing policy prior to and following PRN dosing and with any changes in infusionrate. Ordered MORTON, LUDA Cisneros 02/22/25 1853 Target arousal level: Until discontinued Comments: Target consistent patient goal RASS as ordered. Document RASS every 2 hours and before and after PRN bolus dosing and with any changes in infusion rate. If deep sedation requested by provider, notify provider for updated RASS goal order. Ordered LUDA MORTON 02/22/25 1842 XR Chest 1 View One time imaging In process LUDA MORTON 02/22/25 1842 XR Abdomen 1 View Once In process LUDA MORTON 02/22/25 1837 POCT venous blood gas gem PROCEDURE ONCE Final result POCTIFEOMA PROVIDER 02/22/25 1835 POCT Venous Blood Gas Docked Once Acknowledged LUDA MORTON 02/22/25 1831 CMP STAT In process LUDA MORTON 02/22/25 1831 CBC w/diff STAT Final result LUDA MORTON 02/22/25 1831 Blood gas panel, venous STAT Collected MORTONLUDA CUMMINGS 02/22/25 1831 Ethyl Alcohol Plasma STAT Collected MORTONLUDA CUMMINGS 02/22/25 1831 Thyroid Stimulating Hormone, Plasma STAT In process LUDA MORTON 02/22/25 1831 Free T4, Plasma STAT In process MORTONLUDA 02/22/25 1831 Drug abuse screen STAT Acknowledged MORTONLUDA CUMMINGS 02/22/25 1817 POCT glucose meter PROCEDURE ONCE Final result POCT, GENERIC PROVIDER ED Course as of 02/22/252199Feb 22, 20251955 CT head from outside hospital shows no acute intracranial process but multiple chronic infarcts and [id number] small-vessel disease. Additionally CT angio of the chest does not show any pulmonary emboli. Lung bases are clear. There is some bilateral hydronephrosis of the kidneys and moder ate bladder wall thickening and some diverticulosis in the CT of the abdomen and pelvis. Otherwise no acute intra-abdominal process. [MJ] 1956 On initial evaluation patient is a GCS of 9. She was minimally responsive primarily to pain. Incomprehensible sounds [MJ] 1958 to no response. [MJ] ED Course User Index [MJ] Leon Wallace DO [place] On my initial evaluation I was called to the bedside with my attending due to patient's altered mental status upon arrival with the EMS. As mentioned above she did have a GCS of 9. She was somewhat arousable but quickly fell back to sleep. Based on report from outside hospital notes this seems to be a mixed picture between metabolic encephalopathy related to UTI as well as hypercarbic respiratoryfailure in relation to COPD or CHF. Patient was moved to a critical room immediately in the decision was made to intubate due to patient's altered mental status. Per chart review patient was previously a full code while in the hospital and we went through with intubation. Please see procedure note for details. While patient was at outside hospital she was found to have a UTI and was treated with Rocephin. They also coverage for atypical pneumonia with the azithromycin. She received a DuoNeb andno steroids. As mentioned above she did receive CT of the head and CTA of the chest and abdomen. There were no acute abnormalities within any scans. There was some bladder wall thickening which is consistent with urinalysis show any UTI. I suspect that patient's altered mental status is multifactorial due UTI, hypercarbia, and acidosis. I suspect that patient's mental status decreased EN route with a transfer from outside hospital and prior to being roomed. Per chart review appears that she wasmuch more lucid while at the outside hospital. Patient's initial PH was 7.2 a with a pCO2 of 60. She would have elevated creatinine and BUN consistent with GEOVANNI. No significant leukocytosis. BNP is mildly elevated. Acetone you from outside hospital was within normal ranges. Lactate also normal at [facility]. No further advanced imaging was required per my workup as she had an all completed outside hospital. However chest x-ray and abdominal x-ray were done. Chest x-ray shows ET tube terminating a proximally 4 cm above the andressa which is inappropriate position. There was mild amount of cardiomegaly and pulmonary vascular congestion. Abdominal x-ray does show the NG tube terminating in an appropriate position as well. I discussed the case with the medical ICU who agreed to admit and evaluate the patient for further workup. Patient was on a propofol and Dilaudid drip for sedation while in the ED. Social Determinates of Health Risks (including Economic Stability, Education and level of understanding, Healthcare access and quality and concerning social factors): None identified on this visit Ultimately, this patient was Was admitted (Admission) There were no encounter diagnoses.. Patient believed to require admission for the listed diagnoses. The MICU service was consulted for admission and was agreeable to admit to ICU. ED Prescriptions None - [1] Past 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: Diagnosis Date Anxiety Breast cancer Cerebral infarction, unspecified (CMS/HCC) CVA (cerebral infarction) COPD (chronic obstructive pulmonary disease) (CMS/[facility]) Depression Fibromyalgia History of falling History [...] BREAST SURGERY N/A Breast Surgery Reconstruction from [facility] [facility] BREAST SURGERY N/A Breast Surgery from [employer] [facility] CHOLECYSTECTOMY N/A Cholecystotomy from [employer] KIDNEY SURGERY N/A Kidney Surgery from [employer] [facility] KNEE SURGERY N/A Knee Surgery from [employer] MASTECTOMY N/A Breast Surgery Mastectomy from [employer] SHOULDER SURGERY Right Shoulder Surgery Right from [employer] [3] Family History Problem Relation Name Age of Onset Cancer Mother Stroke Mother Cancer Father Menorrhagia Father Breast cancer Mother's Sister Cancer Mother's Sister Malig Hyperthermia Neg Hx Anesthesia problems Neg Hx [4] Tobacco Use Smoking status: Former Current packs/day: 0.00 Types: Cigarettes Quit date: 07/22/2022 Years since quittin.5 Passive exposure: Past Smokeless tobacco: Never Vaping Use Vaping status: Never Used Substance Use Topics Alcohol use: Not Currently Drug use: Never [5] Allergies Allergen Reactions Sulfa Drugs Anaphylaxis Ultram [Tramadol] Swelling lips swell Hydrocodone Unknown - Patient states they do not know rxn details [facility] is unaware of what reaction. Pedi-Pre Tape [place] [Wound Dressing Adhesive] Rash Wellbutrin [Bupropion] Rash Leon Wallace DO Resident 02/22/252220 Cosigned by Luda Morton MD at 02/28/2025 9:18 PM EDT Associated attestation - Luda Morton MD - 02/28/2025 9:18 PM EDT I saw and evaluated the patient with the resident/fellow. I discussed the case with the resident/fellow and agree with the findings and plan as documented. * ED Triage Notes - Tracy Vasques RN - 02/22/2025 6:13 PM EDT Patient arrives from [facility] with ams. Patient has possible uti, cod exacerbation, hypernatremia, previous cva. documented in this encounter Plan of Treatment Upcoming Encounters Date Type Department Care Team (Late st Contact Info) Description 04/04/2025 10:40 AM EDT Office Visit [facility] [address] [place] [address] Eugenia Jimenez, BOX ESTIMATOR [address] [place] [id number] 05/16/2025 8:00 AM EDT Office Visit [facility] [place] [address], [address] [place] [address] Karly Gracia MD [address] [place] [address] 06/07/2025 1:00 PM EDT Office Visit [facility] [address] [place] [address] Tom Iraheta MD [address] [place] [address] documented as of this encounter Procedures Procedure Name Priority Date/Time Associated Diagnosis Comments POCT GLUCOSE METER UNSOLICITED RESULTS Routine 03/02/2025 8:13 AM EDT POCT GLUCOSE METER UNSOLICITED RESULTS Routine 03/01/2025 7:46 PM EDT POCT GLUCOSE METER UNSOLICITED RESULTS Routine 03/01/2025 5:42 PM EDT SEND HECTOR MESSAGE Routine 03/01/2025 4: 15 PM EDT URINALYSIS WITH REFLEX MICROSCOPIC AND CULTURE Routine 03/01/2025 4:15 PM EDT URINE SALMON PANEL Routine 03/01/2025 4:15 PM EDT URINALYSIS MICROSCOPIC FOR UA REFLEX Routine 03/01/2025 4:15 PM EDT URINALYSIS WITH REFLEX MICROSCOPIC Routine 03/01/2025 4:15 PM EDT URINE CULTURE Routine 03/01/2025 4:15 PM EDT POCT GLUCOSE METER UNSOLICITED RESULTS Routine 03/01/2025 12:03 PM EDT OXYGEN THERAPY Routine 03/01/2025 8:00 AM EDT POCT GLUCOSE METER UNSOLICITED RESULTS Routine 03/01/2025 7:59 AM EDT CBC WITH AUTO DIFFERENTIAL Routine 03/01/2025 4:08 AM EDT PHOSPHORUS, PLASMA Routine 03/01/2025 4: 08 AM EDT MAGNESIUM, PLASMA Routine 03/01/2025 4:0 8 AM EDT BASIC METABOLIC PANEL, PLASMA Routine 03/01/2025 4:08 AM EDT POCT GLUCOSE METER UNSOLICITED RESULTS Routine 03/01/2025 3:09 AM EDT POCT GLUCOSE METER UNSOLICITED RESULTS Routine 02/28/2025 8:25 PM EDT OXYGEN THERAPY Routine 02/28/2025 8:00 PM EDT POCT GLUCOSE METER UNSOLICITED RESULTS Routine 02/28/2025 4:59 PM EDT CBC WITH AUTO DIFFERENTIAL STAT 02/28/2025 1:04 PM EDT PHOSPHORUS, PLASMA STAT 02/28/2025 1: 04 PM EDT MAGNESIUM, PLASMA STAT 02/28/2025 1:0 4 PM EDT BASIC METABOLIC PANEL, PLASMA STAT 02/28/2025 1:04 PM EDT POCT GLUCOSE METER UNSOLICITED RESULTS Routine 02/28/2025 12:17 PM EDT OXYGEN THERAPY Routine 02/28/2025 8:00 AM EDT POCT GLUCOSE METER UNSOLICITED RESULTS Routine 02/27/2025 8:12 PM EDT OXYGEN THERAPY Routine 02/27/2025 8:00 PM EDT POCT GLUCOSE METER UNSOLICITED RESULTS Routine 02/27/2025 5:20 PM EDT POCT GLUCOSE METER UNSOLICITED RESULTS Routine 02/27/2025 12:29 PM EDT XR PANOREX Routine 02/27/2025 12:13 PM EDT POCT GLUCOSE METER UNSOLICITED RESULTS Routine 02/27/2025 8:19 AM EDT OXYGEN THERAPY Routine 02/27/2025 8:00 AM EDT OXYGEN THERAPY Routine 02/26/2025 8:00 PM EDT POCT GLUCOSE METER UNSOLICITED RESULTS Routine 02/26/2025 7:37 PM EDT POCT GLUCOSE METER UNSOLICITED RESULTS Routine 02/26/2025 5:16 PM EDT POCT GLUCOSE METER UNSOLICITED RESULTS Routine 02/26/2025 1:08 PM EDT POCT GLUCOSE METER UNSOLICITED RESULTS Routine 02/26/2025 9:45 AM EDT OXYGEN THERAPY Routine 02/26/2025 8:00 AM EDT CBC W/O DIFFERENTIAL Routine 02/26/2025 4:51 AM EDT MAGNESIUM, PLASMA Routine 02/26/2025 4:5 1 AM EDT RENAL FUNCTION PANEL, PLASMA Routine 02/26/2025 4:51 AM EDT POCT GLUCOSE METER UNSOLICITED RESULTS Routine 02/25/2025 8:37 PM EDT OXYGEN THERAPY Routine 02/25/2025 8:00 PM EDT ECG ADULT STAT 02/25/2025 6:38 PM EDT POCT GLUCOSE METER UNSOLICITED RESULTS Routine 02/25/2025 5:28 PM EDT POCT GLUCOSE METER UNSOLICITED RESULTS Routine 02/25/2025 1:08 PM EDT ECG ADULT STAT 02/25/2025 12:27 PM EDT POCT GLUCOSE METER UNSOLICITED RESULTS Routine 02/25/2025 8:21 AM EDT OXYGEN THERAPY Routine 02/25/2025 8:00 AM EDT CYSTATIN C Routine 02/25/2025 1:36 AM EDT BASIC METABOLIC PANEL, PLASMA Routine 02/25/2025 1:36 AM EDT POCT GLUCOSE METER UNSOLICITED RESULTS Routine 02/24/2025 8:21 PM EDT OXYGEN THERAPY Routine 02/24/2025 8:00 PM EDT POCT GLUCOSE METER UNSOLICITED RESULTS Routine 02/24/2025 5:55 PM EDT POCT GLUCOSE METER UNSOLICITED RESULTS Routine 02/24/2025 11:26 AM EDT OXYGEN THERAPY Routine 02/24/2025 10:11 AM EDT OXYGEN THERAPY Routine 02/24/2025 10:11 AM EDT EXTUBATION Routine 02/24/2025 9:49 AM EDT PA CRITICAL CARE, E/M 30-74 MINUTES Routine 02/24/2025 7:08 AM EDT Acute respiratory failure with hypoxia and hypercapnia Acute kidney injury superimposed on CKD ([facility]) Chronic kidney disease, stage 3a ([facility]) Hyponatremia Acute encephalopathy Sepsis with encephalopathy without septic shock, due to unspecified organism ([facility]) Chronic diastolic (congestive) heart failure ([facility]) POCT GLUCOSE METER UNSOLICITED RESULTS Routine 02/24/2025 5:20 AM EDT IONIZED CALCIUM, WHOLE BLOOD Routine 02/24/2025 1:01 AM EDT CYSTATIN C Add-On 02/24/2025 1:01 AM EDT PROCALCITONIN, PLASMA Routine 02/24/2025 1:01 AM EDT CBC WITH AUTO DIFFERENTIAL Routine 02/24/2025 1:01 AM EDT PHOSPHORUS, PLASMA Routine 02/24/2025 1: 01 AM EDT MAGNESIUM, PLASMA Routine 02/24/2025 1:0 1 AM EDT BLOOD GAS PANEL, VENOUS Routine 02/24/2025 1:01 AM EDT COMPREHENSIVE METABOLIC PANEL, PLASMA Routine 02/24/2025 1:01 AM EDT POCT GLUCOSE METER UNSOLICITED RESULTS Routine 02/24/2025 1:00 AM EDT POCT GLUCOSE METER UNSOLICITED RESULTS Routine 02/23/2025 5:07 PM EDT SODIUM, URINE, RANDOM Routine 02/23/2025 3:12 PM EDT OSMOLALITY, URINE Routine 02/23/2025 3:1 2 PM EDT CYSTATIN C Add-On 02/23/2025 3:04 PM EDT SODIUM, PLASMA Routine 02/23/2025 3:04 PM EDT OSMOLALITY, SERUM Add-On 02/23/2025 3:0 4 PM EDT POCT GLUCOSE METER UNSOLICITED RESULTS Routine 02/23/2025 11:43 AM EDT STREPTOCOCCUS PNEUMONIAE AND LEGIONELLA URINARY ANTIGEN Routine 02/23/2025 11:05 AM EDT WOUND OSTOMY EVAL AND TREAT Routine 02/23/2025 10:25 AM EDT PA CRITICAL CARE, E/M 30-74 MINUTES Routine 02/23/2025 9:10 AM EDT Acute respiratory failure with hypoxia and hypercapnia Acute kidney injury superimposed on CKD ([facility]) Chronic kidney disease, stage 3a ([facility]) Hyponatremia Acute encephalopathy Sepsis with encephalopathy without septic shock, due to unspecified organism ([facility]) SODIUM, PLASMA Timed 02/23/2025 8:34 AM EDT BLOOD GAS PANEL, VENOUS Timed 02/23/2025 8:34 AM EDT VANCOMYCIN, RANDOM, PLASMA Routine 02/23/2025 8:34 AM EDT END TIDAL CO2 MONITORING Routine 02/23/2025 8:00 AM EDT VENTILATOR - ADULT Routine 02/23/2025 8: 00 AM EDT SBT - SPONTANEOUS BREATHING TRIAL Routine 02/23/2025 6:00 AM EDT POCT GLUCOSE METER UNSOLICITED RESULTS Routine 02/23/2025 5:13 AM EDT VENTILATOR - ADULT Routine 02/23/2025 4: 47 AM EDT VENTILATOR - ADULT Routine 02/23/2025 4: 47 AM EDT POCT GLUCOSE METER UNSOLICITED RESULTS Routine 02/23/2025 2:11 AM EDT NASOPHARYNGEAL RESPIRATORY PANEL Routine 02/23/2025 2:05 AM EDT METHICILLIN RESISTANT STAPHYLOCOCCUS AUREUS (MRSA) BY PCR Routine 02/23/2025 2:05 AM EDT TROPONIN T, HIGH SENSITIVITY, 2 HOUR, PLASMA Timed 02/23/2025 2:04 AM EDT ANTI XA LEVEL LOW MOLECULAR WEIGHT HEPARIN Routine 02/23/2025 2:04 AM EDT SODIUM, PLASMA Timed 02/23/2025 2:04 AM EDT BLOOD GAS PANEL, VENOUS Timed 02/23/2025 2:04 AM EDT TROPONIN T, HIGH SENSITIVITY, 0 HOUR, PLASMA, REFLEX TO 2 HOUR STAT 02/23/2025 12:05 AM EDT SODIUM, PLASMA Timed 02/23/2025 12:05 AM EDT PHOSPHORUS, PLASMA Routine 02/23/2025 12 :05 AM EDT MAGNESIUM, PLASMA Routine 02/23/2025 12: 05 AM EDT BLOOD GAS PANEL, VENOUS Timed 02/23/2025 12:05 AM EDT VANCOMYCIN, RANDOM, PLASMA Routine 02/23/2025 12:05 AM EDT BASIC METABOLIC PANEL, PLASMA Routine 02/23/2025 12:05 AM EDT POCT GLUCOSE METER UNSOLICITED RESULTS Routine 02/23/2025 12:04 AM EDT QUANTITATIVE BAL/PAL/BRONCH WASH CULTURE AND GRAM STAIN Routine 02/23/2025 12:00 AM EDT ECG ADULT Routine 02/22/2025 11:57 PM EDT PROCALCITONIN, PLASMA Add-On 02/22/2025 10:03 PM EDT N-TERMINAL PROBNP, PLASMA Routine 02/22/2025 10:03 PM EDT SAHARA AURIS SURVEILLANCE BY PCR Routine 02/22/2025 10:02 PM EDT MULTI DRUG RESISTANCE TEST Routine 02/22/2025 10:02 PM EDT SEND HECTOR MESSAGE Routine 02/22/2025 10 :01 PM EDT URINALYSIS WITH REFLEX MICROSCOPIC AND CULTURE Routine 02/22/2025 10:01 PM EDT URINE SALMON PANEL Routine 02/22/2025 10:0 1 PM EDT URINALYSIS MICROSCOPIC FOR UA REFLEX Routine 02/22/2025 10:01 PM EDT DRUG ABUSE SCREEN, URINE STAT 02/22/2025 10:01 PM EDT FENTANYL, URINE STAT 02/22/2025 10:01 PM EDT URINALYSIS WITH REFLEX MICROSCOPIC Routine 02/22/2025 10:01 PM EDT URINE CULTURE Routine 02/22/2025 10:01 PM EDT POCT GLUCOSE METER UNSOLICITED RESULTS Routine 02/22/2025 9:38 PM EDT POCT ARTERIAL BLOOD GAS GEM UNSOLICITED RESULTS Routine 02/22/2025 9:05 PM EDT BLOOD CULTURE (AEROBIC/ANAEROBIC SET) STAT 02/22/2025 8:55 PM EDT IONIZED CALCIUM, SERUM Routine 02/22/2025 8:36 PM EDT CBC W/O DIFFERENTIAL Routine 02/22/2025 8:36 PM EDT BLOOD GAS PANEL, VENOUS STAT 02/22/2025 8:13 PM EDT ECG ADULT STAT 02/22/2025 8:10 PM EDT END TIDAL CO2 MONITORING Routine 02/22/2025 8:00 PM EDT XR CHEST 1 VIEW STAT 02/22/2025 7:05 PM EDT XR ABDOMEN 1 VIEW STAT 02/22/2025 7:0 5 PM EDT END TIDAL CO2 MONITORING Routine 02/22/2025 6:58 PM EDT SBT - SPONTANEOUS BREATHING TRIAL Routine 02/22/2025 6:58 PM EDT VENTILATOR - ADULT Routine 02/22/2025 6: 58 PM EDT ETHYL ALCOHOL PLASMA STAT 02/22/2025 6:41 PM EDT N-TERMINAL PROBNP, PLASMA STAT Add-on 02/22/2025 6:41 PM EDT CBC WITH AUTO DIFFERENTIAL STAT 02/22/2025 6:41 PM EDT TSH STAT 02/22/2025 6:41 PM EDT FREE T4, PLASMA STAT 02/22/2025 6:41 PM EDT HEMOGLOBIN A1C Add-On 02/22/2025 6:41 PM EDT COMPREHENSIVE METABOLIC PANEL, PLASMA STAT 02/22/2025 6:41 PM EDT POCT VENOUS BLOOD GAS GEM UNSOLICITED RESULTS Routine 02/22/2025 6:37 PM EDT POCT GLUCOSE METER UNSOLICITED RESULTS Routine 02/22/2025 6:17 PM EDT INTUBATION Routine 02/22/2025 6:13 PM EDT documented in this encounter Results * (ABNORMAL) POCT glucose meter (03/02/2025 8:13 AM EDT) [facility] POCT Glucose 188(H) 74 - 99 mg/dL 03/02/2025 8:14 AM EDT [facility] Comment:Accuracy of a glucos e result obtained from a capillary whole blood specimen relies upon adequate, non-compromised capillary blood flow. If the capillary glucose result is not consistent with the patient's clinical signs and symptoms, glucose testing should be repeated with either an arterial or venous sample on the glucometer or sent to the main labortory for testing. Comment 03/02/2025 8:14 AM EDT [facility]ALTH[facility] Screen Examiner ID YvroseCarmely 025 8:14 AM EDT [facility] Device ID [id number] 03/02/2025 8:14 AM EDT [facility] Specimen Type POC Capillary 03/02/2025 8:14 AM EDT [facility] Blood Capillary blood specimen / Unknown 03/02/2025 8:13 AM EDT 03/02/2025 8:14 AM EDT [facility] POINT OF CARE TE ST DOCKED DEVICE UNSOLICITED RESULTS Final Result Performing Organization Address City/State/[facility] Co de Phone Number HEALTHCARE LAB [address] [place] [address] * (ABNORMAL) POCT glucose meter (03/01/2025 7:46 PM EDT) [facility] POCT Glucose 134(H) 74 - 99 mg/dL 03/01/2025 7:47 PM EDT [facility] Comment:Accuracy of a glucos e result obtained from a capillary whole blood specimen relies upon adequate, non-compromised capillary blood flow. If the capillary glucose result is not consistent with the patient's clinical signs and symptoms, glucose testing should be repeated with either an arterial or venous sample on the glucometer or sent to the main labortory for testing. Comment 03/01/2025 7:47 PM EDT [facility] Screen Examiner ID Kamron Freire 03/01/2025 7:47 PM EDT [facility] Device ID [id number] 03/01/2025 7:47 PM EDT [facility] Specimen Type POC Capillary 03/01/2025 7:47 PM EDT [facility] Blood Capillary blood specimen / Unknown 03/01/2025 7:46 PM EDT 03/01/2025 7:47 PM EDT us Madonna Singleton MD LAB POINT OF CARE TE ST DOCKED DEVICE UNSOLICITED RESULTS Final Result Performing Organization Address City/[facility]/ZIP Co de Phone Number [facility] [address] [place] [address] * (ABNORMAL) POCT glucose meter (03/01/2025 5:42 PM EDT) [facility] POCT Glucose 160(H) 74 - 99 mg/dL 03/01/2025 5:45 PM EDT [facility] Comment:Accuracy of a glucos e result obtained from a capillary whole blood specimen relies upon adequate, non-compromised capillary blood flow. If the capillary glucose result is not consistent with the patient's clinical signs and symptoms, glucose testing should be repeated with either an arterial or venous sample on the glucometer or sent to the main labortory for testing. Comment 03/01/2025 5:45 PM EDT [facility] Screen Examiner ID Norberto Smyth 03/01/20 5:45 PM EDT [facility] Device ID [id number] 03/01/2025 5:45 PM EDT [facility] Specimen Type POC Capillary 03/01/2025 5:45 PM EDT [facility] Blood Capillary blood specimen / Unknown 03/01/2025 5:42 PM EDT 03/01/2025 5:45 PM EDT us Madonna Singleton MD LAB POINT OF CARE TE ST DOCKED DEVICE UNSOLICITED RESULTS Final Result Performing Organization Address City/[facility]/ZIP Co de Phone Number [facility] [address] [place] [address] * SEND HECTOR MESSAGE (03/01/2025 4:15 PM EDT) Urine Urine specimen obtained by clean catch procedure / Unknown Non-blood Collection / Unknown 03/01/2025 4:15 PM EDT 03/01/2025 4:26 PM EDT us Madonna Mani [facility] URINE ORDERABLES Final Resul t [facility] [address] [place] [address] * (ABNORMAL) Urine Culture (03/01/2025 4:15 PM EDT) Culture 10,000 - 100,000 CFU/mL Enterobacter cloacae complex(A) CHRISTIANO 03/05/2025 12:12 PM EDT [facility] Comment: This isolate has been identified using the FDA Approved [place] [employer] [place] System Edited result: Previously reported as Gram Negative Lacho on 03/02/2025 at 1916 EDT. Urine Urine specimen obtained by clean catch procedure / Unknown Non-blood Collection / Unknown 03/01/2025 4:15 PM EDT 03/01/2025 4:26 PM EDT Narrative Organism Antibiotic Method Susceptibility Enterobacter cloacae complex Amoxicillin/Clavulanate CHRISTIANO >16/8 ug/ml: Resistant Enterobacter cloacae complex Ampicillin CHRISTIANO >16 ug/ml: Resistant Enterobacter cloacae complex Ampicillin/Sulbactam CHRISTIANO >16/8 ug/ml: Resistant Enterobacter cloacae complex Aztreonam CHRISTIANO >16 ug/ml: Resistant Enterobacter cloacae complex Cefazolin CHRISTIANO >16 ug/ml: Resistant Enterobacter cloacae complex Ceftriaxone CHRISTIANO >32 ug/ml: Resistant Enterobacter cloacae complex Ciprofloxacin CHRISTIANO <=0.25 ug/ml: Susceptible Enterobacter cloacae complex Gentamicin CHRISTIANO <=2 ug/ml: Susceptible Enterobacter cloacae complex Levofloxacin CHRISTIANO <=0.25 ug/ml: Susceptible Enterobacter cloacae complex Meropenem CHRISTIANO <=0.5 ug/ml: Susceptible Enterobacter cloacae complex Nitrofurantoin CHRISTIANO 32 ug/ml: Susceptible Enterobacter cloacae complex Piperacillin/Tazobactam CHRISTIANO >64/4 ug/ml: Resistant Enterobacter cloacae complex Tetracycline CHRISTIANO <=2 ug/ml: Susceptible Enterobacter cloacae complex Tobramycin CHRISTIANO <=2 ug/ml: Susceptible Enterobacter cloacae complex Trimethoprim/Sulfamethoxazo le CHRISTIANO <=0.5/9.5 ug/ml: Susceptible Enterobacter cloacae complex Ertapenem ETEST 0.19 ug/ml: Susceptible Enterobacter cloacae complex Cefepime ETEST 2.0 ug/ml: Susceptible Comment:The previously repor jovita component Ertapenem is no longer being reported. us Madonna Singleton MD LAB MICROBIOLOGY - GENERAL ORDER GIO Final Result Performing Organization Address [facility] de Phone Number [facility] [address] [place] [address] * Urinalysis Microscopic Examination (03/01/2025 4:15 PM EDT) Urine Urine specimen obtained by clean catch procedure / Unknown Non-blood Collection / Unknown 03/01/2025 4:15 PM EDT 03/01/2025 4:26 PM EDT us Madonna Singleton MD LAB URINE ORDERABLES Final Resul t Performing Organization Address [facility] de Phone Number [facility] [address] [place] [address] * Urine Salmon Panel (03/01/2025 4:15 PM EDT) Extra Sent for Culture 03/01/2025 6:01 PM EDT [facility] Urine Urine specimen obtained by clean catch procedure / Unknown Non-blood Collection / Unknown 03/01/2025 4:15 PM EDT 03/01/2025 4:26 PM EDT us Madonna Singleton MD LAB URINE ORDERABLES Final Resul t Performing Organization Address [facility] de Phone Number [facility] [address] [place] [address] * (ABNORMAL) Urinalysis with reflex microscopic (Culture NOT Included) (03/01/2025 4:15 PM EDT) Color, Urine Yellow LAB URINALYSIS - AUTOMATED METHOD 03/01/2025 4:34 PM EDT [facility] Clarity, Urine Cloudy LAB URINALYSIS - AUTOMATED METHOD 03/01/2025 4:34 PM EDT [facility] Spec [place], Urine 1.008 1.005 - 1.030 LAB URINALYSIS - AUTOMATED METHOD 03/01/2025 4:34 PM EDT [facility] pH, Urine 6.5 5.0 - 8.0 LAB URINALYSIS - AUTOMATED METHOD 03/01/2025 4:34 PM EDT [facility] Protein, Urine 30(A) Negative mg/dL LAB URINALYSIS - AUTOMATED METHOD 03/01/2025 4:34 PM EDT [facility] Glucose, Urine Negative Negative mg/dL LAB URINALYSIS - AUTOMATED METHOD 03/01/2025 4:34 PM EDT [facility] Ketones, Urine Negative Negative mg/dL LAB URINALYSIS - AUTOMATED METHOD 03/01/2025 4:34 PM EDT [facility] Blood, Urine Large(A) Negative LAB URINALYSIS - AUTOMATED METHOD 03/01/2025 4:34 PM EDT [facility] Bilirubin, Urine Negative Negative LAB URINALYSIS - AUTOMATED METHOD 03/01/2025 4:34 PM EDT [facility] Urobilinogen, Urine 0.2 0.2 to 1.0 mg/dL LAB URINALYSIS - AUTOMATED METHOD 03/01/2025 4:34 PM EDT [facility] Leukocytes, Urine Large(A) Negative LAB URINALYSIS - AUTOMATED METHOD 03/01/2025 4:34 PM EDT [facility] Nitrite, Urine Negative Negative LAB URINALYSIS - AUTOMATED METHOD 03/01/2025 4:34 PM EDT [facility] RBC, Urine >50(A) 0 to 3 /HPF LAB URINALYSIS - AUTOMATED METHOD 03/01/2025 4:34 PM EDT [facility] WBC, Urine >50(A) 0 to 5 /HPF LAB URINALYSIS - AUTOMATED METHOD 03/01/2025 4:34 PM EDT [facility] Squamous Epithelial Cells 3 - 5 0 to 5 /HPF LAB URINALYSIS - AUTOMATED METHOD 03/01/2025 4:34 PM EDT [facility] Hyaline Casts 0 - 2 0 to 5 /LPF LAB URINALYSIS - AUTOMATED METHOD 03/01/2025 4:34 PM EDT [facility] Bacteria, Urine Negative Negative LAB URINALYSIS - AUTOMATED METHOD 03/01/2025 4:[address] [facility] Urine Urine specimen obtained by clean catch procedure / Unknown Non-blood Collection / Unknown 03/01/2025 4:15 PM EDT 03/01/2025 4:26 PM EDT us Madonna Singleton MD LAB URINE ORDERABLES Final Resul t [facility] [address] [place] [address] * (ABNORMAL) POCT glucose meter (03/01/2025 12:03 PM EDT) POCT Glucose 206(H) 74 - 99 mg/dL 03/01/2025 12:05 PM EDT [facility] Comment:Accuracy of a glucos e result obtained from a capillary whole blood specimen relies upon adequate, non-compromised capillary blood flow. If the capillary glucose result is not consistent with the patient's clinical signs and symptoms, glucose testing should be repeated with either an arterial or venous sample on the glucometer or sent to the main labortory for testing. Comment 03/01/2025 12:05 PM EDT [facility] Screen Examiner ID Rocky, Serenity 03/01/2025 12:05 PM EDT [facility] Device ID [id number] 03/01/2025 12:05 PM EDT [facility] Specimen Type POC Capillary 03/01/2025 12:05 PM EDT [facility] Blood Capillary blood specimen / Unknown 03/01/2025 12:03 PM EDT 03/01/2025 12:05 PM EDT us Madonna Singleton MD LAB POINT OF CARE TE ST DOCKED DEVICE UNSOLICITED RESULTS Final Result [facility] [address] [place] [address] * (ABNORMAL) POCT glucose meter (03/01/2025 7:59 AM EDT) POCT Glucose 200(H) 74 - 99 mg/dL 03/01/2025 8:01 AM EDT [facility] Comment:Accuracy of [...] to the main labortory for testing. Comment 03/01/2025 8:01 AM EDT [facility] Screen Examiner ID Nancy Hidalgo 03/01/2025 8:01 AM EDT [facility] Device ID [id number] 03/01/2025 8:01 AM EDT [facility] Specimen Type POC Capillary 03/01/2025 8:01 AM EDT [facility] Blood Capillary blood specimen / Unknown 03/01/2025 7:59 AM EDT 03/01/2025 8:01 AM EDT us Madonna Mani [facility] POINT OF CARE TE ST DOCKED DEVICE UNSOLICITED RESULTS Final Result Performing Organization Address City/State/[facility] de Phone Number [facility]ALTH[facility]ARE [facility] [address] [place] [address] * (ABNORMAL) CBC and Differential (03/01/2025 4:08 AM EDT) WBC Count 6.83 3.70 - 10.30 10*3/uL LAB HEMATOLOGY METHOD 03/01/2025 4:54 AM EDT [facility] RBC Count 3.61(L) 3.90 - 5.20 10*6/uL LAB HEMATOLOGY METHOD 03/01/2025 4:54 AM EDT [facility] HGB 9.2(L) 11.2 - 15.7 g/dL LAB HEMATOLOGY METHOD 03/01/2025 4:54 AM EDT [facility] HCT 29.9(L) 34.0 - 45.0 % LAB HEMATOLOGY METHOD 03/01/2025 4:54 AM EDT [facility] Platelet Count 294 155 - 369 10*3/uL LAB HEMATOLOGY METHOD 03/01/2025 4:54 AM EDT [facility] MCV 83 79 - 98 fL LAB HEMATOLOGY METHOD 03/01/2025 4:54 AM EDT [facility] MCH 25.5(L) 26.0 - 32.0 pg LAB HEMATOLOGY METHOD 03/01/2025 4:54 AM EDT [facility] MCHC 30.8 30.7 - 35.5 g/dL LAB HEMATOLOGY METHOD 03/01/2025 4:54 AM EDT [facility] RDW 15.1(H) 11.5 - 14.5 % LAB HEMATOLOGY METHOD 03/01/2025 4:54 AM EDT [facility] MPV 9.2 8.8 - 12.5 fL LAB HEMATOLOGY METHOD 03/01/2025 4:54 AM EDT [facility] nRBC 0.0 <=0.0 per 100 WBCs LAB HEMATOLOGY METHOD 03/01/2025 4:54 AM EDT [facility] Differential Type Automated LAB HEMATOLOGY METHOD 03/01/2025 4:54 AM EDT [facility] Neutrophils % 56 % LAB HEMATOLOGY METHOD 03/01/2025 4:54 AM EDT [facility] Lymphocytes % 25 % LAB HEMATOLOGY METHOD 03/01/2025 4:54 AM EDT [facility] Monocytes % 11 % LAB HEMATOLOGY METHOD 03/01/2025 4:54 AM EDT [facility] Eosinophils % 6 % LAB HEMATOLOGY METHOD 03/01/2025 4:54 AM EDT [facility] Basophils % 1 % LAB HEMATOLOGY METHOD 03/01/2025 4:54 AM EDT [facility] Immature Granulocytes % 1 % LAB HEMATOLOGY METHOD 03/01/2025 4:54 AM EDT [facility] Neutrophils Absolute 3.86 1.60 - 6.10 10*3/uL LAB HEMATOLOGY METHOD 03/01/2025 4:54 AM EDT [facility] Lymphocytes Absolute 1.70 1.20 - 3.90 10*3/uL LAB HEMATOLOGY METHOD 03/01/2025 4:54 AM EDT [facility] Monocytes Absolute 0.74 0.30 - 0.90 10*3/uL LAB HEMATOLOGY METHOD 03/01/2025 4:54 AM EDT [facility] Eosinophils Absolute 0.44 0.00 - 0.50 10*3/uL LAB HEMATOLOGY METHOD 03/01/2025 4:54 AM EDT [facility] Basophils Absolute 0.05 0.00 - 0.10 10*3/uL LAB HEMATOLOGY METHOD 03/01/2025 4:54 AM EDT [facility] Immature Granulocytes Absolute 0.04 0.00 - 0.06 10*3/uL LAB HEMATOLOGY METHOD 03/01/2025 4:54 AM EDT [facility] Blood Venous blood specimen / Unknown Venipuncture / Unknown 03/01/2025 4:08 AM EDT 03/01/2025 4:42 AM EDT Narrative [facility] - 03/01/2025 4:54 AM EDT Therapeutic decision making should be based on absolute values, rather than percentages. us Madonna Singleton MD LAB BLOOD ORDERABLES Final Resul t Performing Organization Address City/[facility]/ZIP Co de Phone Number [facility] [address] [place] [address] * Magnesium, Plasma (03/01/2025 4:08 AM EDT) Magnesium, Plasma 2.0 1.9 - 2.4 mg/dL 03/01/2025 5:14 AM EDT [facility] Blood Venous blood specimen / Unknown Venipuncture / Unknown 03/01/2025 4:08 AM EDT 03/01/2025 4:43 AM EDT us Madonna Singleton MD LAB BLOOD ORDERABLES Final Resul t Performing Organization Address City/[facility]/ZIP Co de Phone Number [facility] [address] [place] [address] * (ABNORMAL) Basic Metabolic Panel, Plasma (03/01/2025 4:08 AM EDT) Glucose, Plasma 205(H) 74 - 99 mg/dL 03/01/2025 5:14 AM EDT [facility] BUN, Plasma 40(H) 8 - 23 mg/dL 03/01/2025 5:14 AM EDT [facility] Creatinine, Plasma 1.84(H) 0.60 - 1.10 mg/dL 03/01/2025 5:14 AM EDT [facility] BUN/Creatinine Ratio 22 03/01/2025 5:14 AM EDT [facility] Sodium, Plasma 125(L) 136 - 145 mmol/L 03/01/2025 5:14 AM EDT [facility] Potassium, Plasma 4.5 3.6 - 4.9 mmol/L 03/01/2025 5:14 AM EDT [facility] Chloride, Plasma 91(L) 97 - 107 mmol/L 03/01/2025 5:14 AM EDT [facility] CO2, Plasma 23 22 - 29 mmol/L 03/01/2025 5:14 AM EDT [facility] Anion Gap 11 6 - 16 mmol/L 03/01/2025 5:14 AM EDT [facility] Total Calcium, Plasma 8.8(L) 8.9 - 10.2 mg/dL 03/01/2025 5:14 AM EDT [facility] eGFRcr 30.1 mL/min/1.7 3m*2 03/01/2025 5:14 AM EDT [facility] Comment:Reported eGFRcr in m L/min/1.73m2 is based the CKD-EPI 2020 equation that does not use a race coefficient. Blood Venous blood specimen / Unknown Venipuncture / Unknown 03/01/2025 4:08 AM EDT 03/01/2025 4:43 AM EDT us Madonna Singleton MD LAB BLOOD ORDERABLES Final Resul t Performing Organization Address City/[facility]/ZIP Co de Phone Number [facility] [address] [place] [address] * Phosphorus, Plasma (03/01/2025 4:08 AM EDT) Phosphorus, Plasma 4.4 2.5 - 4.5 mg/dL 03/01/2025 5:14 AM EDT [facility] Blood Venous blood specimen / Unknown Venipuncture / Unknown 03/01/2025 4:08 AM EDT 03/01/2025 4:43 AM EDT us Madonna Singleton MD LAB BLOOD ORDERABLES Final Resul t [facility] [address] [place] [address] * (ABNORMAL) POCT glucose meter (03/01/2025 3:09 AM EDT) Pathologist [facility] POCT Glucose 187(H) 74 - 99 mg/dL 03/01/2025 3:35 AM EDT [facility] Comment:Accuracy of a glucos e result obtained from a capillary whole blood specimen relies upon adequate, non-compromised capillary blood flow. If the capillary glucose result is not consistent with the patient's clinical signs and symptoms, glucose testing should be repeated with either an arterial or venous sample on the glucometer or sent to the main labortory for testing. Comment 03/01/2025 3:35 AM EDT [facility]ALTH[facility]ARE [facility] Screen Examiner ID Pat Young 03/01/2025 3:35 AM EDT [facility] Device ID [id number] 03/01/2025 3:35 AM EDT [facility] Specimen Type POC Capillary 03/01/2025 3:35 AM EDT [facility] Blood Capillary blood specimen / Unknown 03/01/2025 3:09 AM EDT 03/01/2025 3:35 AM EDT Madonna Singleton MD LAB POINT OF CARE TE ST DOCKED DEVICE UNSOLICITED RESULTS Final Result Performing Organization Address City/State/[facility] Co de Phone Number [facility] [address] [place] [address] * (ABNORMAL) POCT glucose meter (02/28/2025 8:25 PM EDT) [facility] POCT Glucose 258(H) 74 - 99 mg/dL 02/28/2025 8:42 PM EDT [facility] Comment:Accuracy of a glucos e result obtained from a capillary whole blood specimen relies upon adequate, non-compromised capillary blood flow. If the capillary glucose result is not consistent with the patient's clinical signs and symptoms, glucose testing should be repeated with either an arterial or venous sample on the glucometer or sent to the main labortory for testing. Comment 02/28/2025 8:42 PM EDT [facility] Screen Examiner ID Pat Young 02/28/2025 8:42 PM EDT [facility] Device ID [id number] 02/28/2025 8:42 PM EDT [facility] Specimen Type POC Capillary 02/28/2025 8:42 PM EDT [facility] Blood Capillary blood specimen / Unknown 02/28/2025 8:25 PM EDT 02/28/2025 8:42 PM EDT us Madonna Singleton MD LAB POINT OF CARE TE ST DOCKED DEVICE UNSOLICITED RESULTS Final Result Performing Organization Address City/[facility]/ZIP Co de Phone Number [facility] [address] [place] [address] * (ABNORMAL) POCT glucose meter (02/28/2025 4:59 PM EDT) Pathologist [facility] POCT Glucose 300(H) 74 - 99 mg/dL 02/28/2025 5:00 PM EDT [facility] Comment:Accuracy of a glucos e result obtained from a capillary whole blood specimen relies upon adequate, non-compromised capillary blood flow. If the capillary glucose result is not consistent with the patient's clinical signs and symptoms, glucose testing should be repeated with either an arterial or venous sample on the glucometer or sent to the main labortory for testing. Comment 02/28/2025 5:00 PM EDT [facility] Screen Examiner ID Rocky, Serenity 02/28/2025 5:00 PM EDT [facility] LAB Device ID [id number] 02/28/2025 5:00 PM EDT [facility] Specimen Type POC Capillary 02/28/2025 5:00 PM EDT [facility] Blood Capillary blood specimen / Unknown 02/28/2025 4:59 PM EDT 02/28/2025 5:00 PM EDT us Madonna Singleton MD LAB POINT OF CARE TE ST DOCKED DEVICE UNSOLICITED RESULTS Final Result Performing Organization Address City/[facility]/ZIP Co de Phone Number [facility] [address] [place] [address] * (ABNORMAL) CBC and Differential (02/28/2025 1:04 PM EDT) WBC Count 7.39 3.70 - 10.30 10*3/uL LAB HEMATOLOGY METHOD 02/28/2025 1:37 PM EDT [facility] RBC Count 4.30 3.90 - 5.20 10*6/uL LAB HEMATOLOGY METHOD 02/28/2025 1:37 PM EDT [facility] HGB 11.0(L) 11.2 - 15.7 g/dL LAB HEMATOLOGY METHOD 02/28/2025 1:37 PM EDT [facility] HCT 35.0 34.0 - 45.0 % LAB HEMATOLOGY METHOD 02/28/2025 1:37 PM EDT [facility] Platelet Count 399(H) 155 - 369 10*3/uL LAB HEMATOLOGY METHOD 02/28/2025 1:37 PM EDT [facility] MCV 81 79 - 98 fL LAB HEMATOLOGY METHOD 02/28/2025 1:37 PM EDT [facility] MCH 25.6(L) 26.0 - 32.0 pg LAB HEMATOLOGY METHOD 02/28/2025 1:37 PM EDT [facility] MCHC 31.4 30.7 - 35.5 g/dL LAB HEMATOLOGY METHOD 02/28/2025 1:37 PM EDT [facility] RDW 15.5(H) 11.5 - 14.5 % LAB HEMATOLOGY METHOD 02/28/2025 1:37 PM EDT [facility] MPV 9.0 8.8 - 12.5 fL LAB HEMATOLOGY METHOD 02/28/2025 1:37 PM EDT [facility] nRBC 0.0 <=0.0 per 100 WBCs LAB HEMATOLOGY METHOD 02/28/2025 1:37 PM EDT [facility] Differential Type Automated LAB HEMATOLOGY METHOD 02/28/2025 1:37 PM EDT [facility] Neutrophils % 62 % LAB HEMATOLOGY METHOD 02/28/2025 1:37 PM EDT [facility] Lymphocytes % 21 % LAB HEMATOLOGY METHOD 02/28/2025 1:37 PM EDT [facility] Monocytes % 9 % LAB HEMATOLOGY METHOD 02/28/2025 1:37 PM EDT [facility] Eosinophils % 6 % LAB HEMATOLOGY METHOD 02/28/2025 1:37 PM EDT [facility] Basophils % 1 % LAB HEMATOLOGY METHOD 02/28/2025 1:37 PM EDT [facility] Immature Granulocytes % 1 % LAB HEMATOLOGY METHOD 02/28/2025 1:37 PM EDT [facility] Neutrophils Absolute 4.64 1.60 - 6.10 10*3/uL LAB HEMATOLOGY METHOD 02/28/2025 1:37 PM EDT [facility] Lymphocytes Absolute 1.54 1.20 - 3.90 10*3/uL LAB HEMATOLOGY METHOD 02/28/2025 1:37 PM EDT [facility] Monocytes Absolute 0.69 0.30 - 0.90 10*3/uL LAB HEMATOLOGY METHOD 02/28/2025 1:37 PM EDT [facility] Eosinophils Absolute 0.41 0.00 - 0.50 10*3/uL LAB HEMATOLOGY METHOD 02/28/2025 1:37 PM EDT [facility] Basophils Absolute 0.05 0.00 - 0.10 10*3/uL LAB HEMATOLOGY METHOD 02/28/2025 1:37 PM EDT [facility] Immature Granulocytes Absolute 0.06 0.00 - 0.06 10*3/uL LAB HEMATOLOGY METHOD 02/28/2025 1:37 PM EDT [facility] Blood Venous blood specimen / Unknown Venipuncture / Unknown 02/28/2025 1:04 PM EDT 02/28/2025 1:28 PM EDT Narrative [facility] - 02/28/2025 1:37 PM EDT Therapeutic decision making should be based on absolute values, rather than percentages. us Madonna Singleton MD LAB BLOOD ORDERABLES Final Resul t [facility] [address] [place] [address] * (ABNORMAL) Magnesium, Plasma (02/28/2025 1:04 PM EDT) Magnesium, Plasma 1.7(L) 1.9 - 2.4 mg/dL 02/28/2025 1:45 PM EDT [facility] Blood Venous blood specimen / Unknown Venipuncture / Unknown 02/28/2025 1:04 PM EDT 02/28/2025 1:14 PM EDT us Madonnaryan Singleton MD LAB BLOOD ORDERABLES Final Resul t [facility] [address] [place] [address] * (ABNORMAL) Basic Metabolic Panel, Plasma (02/28/2025 1:04 PM EDT) Glucose, Plasma 166(H) 74 - 99 mg/dL 02/28/2025 1:45 PM EDT [facility] BUN, Plasma 40(H) 8 - 23 mg/dL 02/28/2025 1:45 PM EDT [facility] Creatinine, Plasma 1.99(H) 0.60 - 1.10 mg/dL 02/28/2025 1:45 PM EDT [facility] BUN/Creatinine Ratio 20 02/28/2025 1:45 PM EDT [facility] Sodium, Plasma 130(L) 136 - 145 mmol/L 02/28/2025 1:45 PM EDT [facility] Potassium, Plasma 4.6 3.6 - 4.9 mmol/L 02/28/2025 1:45 PM EDT [facility] Chloride, Plasma 93(L) 97 - 107 mmol/L 02/28/2025 1:45 PM EDT [facility] CO2, Plasma 24 22 - 29 mmol/L 02/28/2025 1:45 PM EDT [facility] Anion Gap 13 6 - 16 mmol/L 02/28/2025 1:45 PM EDT [facility] Total Calcium, Plasma 9.3 8.9 - 10.2 mg/dL 02/28/2025 1:45 PM EDT [facility] eGFRcr 27.4 mL/min/1.7 3m*2 02/28/2025 1:45 PM EDT [facility] Comment:Reported eGFRcr in m L/min/1.73m2 is based the CKD-EPI 2020 equation that does not use a race coefficient. Blood Venous blood specimen / Unknown Venipuncture / Unknown 02/28/2025 1:04 PM EDT 02/28/2025 1:14 PM EDT us Madonnaryan Singleton MD LAB BLOOD ORDERABLES Final Resul t Performing Organization Address City/[facility]/ZIP Co de Phone Number [facility] [address] [place] [address] * Phosphorus, Plasma (02/28/2025 1:04 PM EDT) [facility] Phosphorus, Plasma 4.1 2.5 - 4.5 mg/dL 02/28/2025 1:45 PM EDT [facility] Blood Venous blood specimen / Unknown Venipuncture / Unknown 02/28/2025 1:04 PM EDT 02/28/2025 1:14 PM EDT us Madonna Singleton MD LAB BLOOD ORDERABLES Final Resul t Performing Organization Address [facility] de Phone Number [facility] [address] [place] [address] * (ABNORMAL) POCT glucose meter (02/28/2025 12:17 PM EDT) [facility] POCT Glucose 161(H) 74 - 99 mg/dL 02/28/2025 12:19 PM EDT [facility] Comment:Accuracy of a glucos e result obtained from a capillary whole blood specimen relies upon adequate, non-compromised capillary blood flow. If the capillary glucose result is not consistent with the patient's clinical signs and symptoms, glucose testing should be repeated with either an arterial or venous sample on the glucometer or sent to the main labortory for testing. Comment 02/28/2025 12:19 PM EDT [facility] Screen Examiner ID Rocky Malcolmedwardty 02/28/2025 12:19 PM EDT [facility] Device ID [id number] 02/28/2025 12:19 PM EDT [facility] Specimen Type POC Capillary 02/28/2025 12:19 PM EDT [facility] Blood Capillary blood specimen / Unknown 02/28/2025 12:17 PM EDT 02/28/2025 12:19 PM EDT us Madonna Singleton MD LAB POINT OF CARE TE ST DOCKED DEVICE UNSOLICITED RESULTS Final Result Performing Organization Address [facility]/ZIP Co de Phone Number [facility] [address] [place] [address] * (ABNORMAL) POCT glucose meter (02/27/2025 8:12 PM EDT) [facility] POCT Glucose 211(H) 74 - 99 mg/dL 02/27/2025 8:14 PM EDT [facility] Comment:Accuracy of a glucos e result obtained from a capillary whole blood specimen relies upon adequate, non-compromised capillary blood flow. If the capillary glucose result is not consistent with the patient's clinical signs and symptoms, glucose testing should be repeated with either an arterial or venous sample on the glucometer or sent to the main labortory for testing. Comment 02/27/2025 8:14 PM EDT [facility] Screen Examiner ID Pat Young 02/27/2025 8:14 PM EDT [facility] Device ID [id number] 02/27/2025 8:14 PM EDT [facility] Specimen Type POC Capillary 02/27/2025 8:14 PM EDT [facility] Blood Capillary blood specimen / Unknown 02/27/2025 8:12 PM EDT 02/27/2025 8:14 PM EDT Madonna Mani BENSON LAB POINT OF CARE TE ST DOCKED DEVICE UNSOLICITED RESULTS Final Result [facility] [address] [place] [address] * (ABNORMAL) POCT glucose meter (02/27/2025 5:20 PM EDT) [facility] POCT Glucose 171(H) 74 - 99 mg/dL 02/27/2025 5:21 PM EDT [facility] Comment:Accuracy of a glucos e result obtained from a capillary whole blood specimen relies upon adequate, non-compromised capillary blood flow. If the capillary glucose result is not consistent with the patient's clinical signs and symptoms, glucose testing should be repeated with either an arterial or venous sample on the glucometer or sent to the main labortory for testing. Comment 02/27/2025 5:21 PM EDT [facility] Screen Examiner ID Nancy Hidalgo 02/27/2025 5:21 PM EDT [facility] Device ID [id number] 02/27/2025 5:21 PM EDT [facility] Specimen Type POC Capillary 02/27/2025 5:21 PM EDT [facility] Blood Capillary blood specimen / Unknown 02/27/2025 5:20 PM EDT 02/27/2025 5:21 PM EDT us Madonna Singleton MD LAB POINT OF CARE TE ST DOCKED DEVICE UNSOLICITED RESULTS Final Result Performing Organization Address City/[facility]/ZIP Co de Phone Number [facility] [address] [place] [address] * (ABNORMAL) POCT glucose meter (02/27/2025 12:29 PM EDT) [facility] POCT Glucose 247(H) 74 - 99 mg/dL 02/27/2025 12:30 PM EDT [facility] Comment:Accuracy of a glucos e result obtained from a capillary whole blood specimen relies upon adequate, non-compromised capillary blood flow. If the capillary glucose result is not consistent with the patient's clinical signs and symptoms, glucose testing should be repeated with either an arterial or venous sample on the glucometer or sent to the main labortory for testing. Comment 02/27/2025 12:30 PM EDT [facility] Screen Examiner ID Daniela Carroll 025 12:30 PM EDT [facility] Device ID [id number] 02/27/2025 12:30 PM EDT [facility] Specimen Type POC Capillary 02/27/2025 12:30 PM EDT [facility] Blood Capillary blood specimen / Unknown 02/27/2025 12:29 PM EDT 02/27/2025 12:30 PM EDT us Ludy Hill MD LAB POINT OF CARE TE ST DOCKED DEVICE UNSOLICITED RESULTS Final Result Performing Organization Address City/[facility]/ZIP Co de Phone Number [facility] [address] [place] [address] * XR Panorex (02/27/2025 12:13 PM EDT) Anatomical Region Laterality Modality Jaw region Panoramic X-Ray Impressions 02/27/2025 12:25 PM EDT Dental caries in tooth #6 and 31 without abscess. CRITICAL RESULT: No. COMMUNICATION: Per this written report. Drafted by Lucas Cristobal MD on 02/27/2025 12:22 PM Final report signed by Lucas Cristobal MD on 02/27/2025 12:25 PM Narrative 02/27/2025 12:25 PM EDT CLINICAL INDICATION: Odontogenic infection TECHNIQUE: XR PANOREX COMPARISON: None. FINDINGS: Rounded lucency in tooth #6. Aggressive destruction in the posterior aspect of tooth #31. [place] wear in tooth number 8, 9 and 23. No periapical lucency Procedure Note Lucas Cristobal MD - 02/27/2025 CLINICAL INDICATION: Odontogenic infection TECHNIQUE: XR PANOREX COMPARISON: None. FINDINGS: Rounded lucency in tooth #6. Aggressive destruction in the posterioraspect of tooth #31. [place] wear in tooth number 8, 9 and 23. No periapicallucency IMPRESSION: Dental caries in tooth #6 and 31 without abscess. CRITICAL RESULT: No. COMMUNICATION: Per this written report. Drafted by Lucas Cristobal MD on 02/27/2025 12:22 PM Final report signed by Lucas Cristobal MD on 02/27/2025 12:25 PM Ludy Hill MD IMG XR PROCEDURES Final Result * (ABNORMAL) POCT glucose meter (02/27/2025 8:19 AM EDT) POCT Glucose 192(H) 74 - 99 mg/dL 02/27/2025 8:21 AM EDT [facility] Comment:Accuracy of [...] to the main labortory for testing. Comment 02/27/2025 8:21 AM EDT [facility] Screen Examiner ID Daniela Carroll 025 8:21 AM EDT [facility] Device ID [id number] 02/27/2025 8:21 AM EDT [facility] Specimen Type POC Capillary 02/27/2025 8:21 AM EDT [facility] Blood Capillary blood specimen / Unknown 02/27/2025 8:19 AM EDT 02/27/2025 8:21 AM EDT us Ludy Hill MD LAB POINT OF CARE TE ST DOCKED DEVICE UNSOLICITED RESULTS Final Result [facility] [address] [place] [address] * (ABNORMAL) POCT glucose meter (02/26/2025 7:37 PM EDT) POCT Glucose 327(H) 74 - 99 mg/dL 02/26/2025 7:38 PM EDT [facility] Comment:Accuracy of a glucos e result obtained from a capillary whole blood specimen relies upon adequate, non-compromised capillary blood flow. If the capillary glucose result is not consistent with the patient's clinical signs and symptoms, glucose testing should be repeated with either an arterial or venous sample on the glucometer or sent to the main labortory for testing. Comment 02/26/2025 7:38 PM EDT [facility] Screen Examiner ID Daniela Mcbride 02/26/2025 7:38 PM EDT [facility] Device ID [id number] 02/26/2025 7:38 PM EDT [facility] Specimen Type POC Capillary 02/26/2025 7:38 PM EDT [facility] Blood Capillary blood specimen / Unknown 02/26/2025 7:37 PM EDT 02/26/2025 7:38 PM EDT us Ludy Hill MD LAB POINT OF CARE TE ST DOCKED DEVICE UNSOLICITED RESULTS Final Result [facility] [address] [place] [address] * (ABNORMAL) POCT glucose meter (02/26/2025 5:16 PM EDT) POCT Glucose 208(H) 74 - 99 mg/dL 02/26/2025 5:18 PM EDT [facility] Comment:Accuracy of a glucos e result obtained from a capillary whole blood specimen relies upon adequate, non-compromised capillary blood flow. If the capillary glucose result is not consistent with the patient's clinical signs and symptoms, glucose testing should be repeated with either an arterial or venous sample on the glucometer or sent to the main labortory for testing. Comment 02/26/2025 5:18 PM EDT [facility] Screen Examiner ID Bassem Jay 02/26/2025 5:18 PM EDT [facility] Device ID [id number] 02/26/2025 5:18 PM EDT [facility] Specimen Type POC Capillary 02/26/2025 5:18 PM EDT [facility] Blood Capillary blood specimen / Unknown 02/26/2025 5:16 PM EDT 02/26/2025 5:18 PM EDT us Ludy Hill MD LAB POINT OF CARE TE ST DOCKED DEVICE UNSOLICITED RESULTS Final Result Performing Organization Address City/State/[facility] Co de Phone Number [facility] [address] [place] [address] * (ABNORMAL) POCT glucose meter (02/26/2025 1:08 PM EDT) [facility] POCT Glucose 223(H) 74 - 99 mg/dL 02/26/2025 1:09 PM EDT [facility] Comment:Accuracy of a glucos e result obtained from a capillary whole blood specimen relies upon adequate, non-compromised capillary blood flow. If the capillary glucose result is not consistent with the patient's clinical signs and symptoms, glucose testing should be repeated with either an arterial or venous sample on the glucometer or sent to the main labortory for testing. Comment 02/26/2025 1:09 PM EDT [facility] Screen Examiner ID Bassem Jay 02/26/2025 1:09 PM EDT [facility] Device ID [id number] 02/26/2025 1:09 PM EDT [facility] Specimen Type POC Capillary 02/26/2025 1:09 PM EDT [facility] Blood Capillary blood specimen / Unknown 02/26/2025 1:08 PM EDT 02/26/2025 1:09 PM EDT us Ludy Hill MD LAB POINT OF CARE TE ST DOCKED DEVICE UNSOLICITED RESULTS Final Result [facility] [address] [place] [address] * (ABNORMAL) POCT glucose meter (02/26/2025 9:45 AM EDT) POCT Glucose 187(H) 74 - 99 mg/dL 02/26/2025 9:46 AM EDT [facility] Comment:Accuracy of a glucos e result obtained from a capillary whole blood specimen relies upon adequate, non-compromised capillary blood flow. If the capillary glucose result is not consistent with the patient's clinical signs and symptoms, glucose testing should be repeated with either an arterial or venous sample on the glucometer or sent to the main labortory for testing. Comment 02/26/2025 9:46 AM EDT [facility] Screen Examiner ID Bassem Jay 02/26/2025 9:46 AM EDT [facility] Device ID [id number] 02/26/2025 9:46 AM EDT [facility] Specimen Type POC Capillary 02/26/2025 9:46 AM EDT [facility] Blood Capillary blood specimen / Unknown 02/26/2025 9:45 AM EDT 02/26/2025 9:46 AM EDT us Ludy Hill MD LAB POINT OF CARE TE ST DOCKED DEVICE UNSOLICITED RESULTS Final Result [facility] [address] [place] [address] * (ABNORMAL) Hemogram (CBC) (02/26/2025 4:51 AM EDT) WBC Count 7.59 3.70 - 10.30 10*3/uL LAB HEMATOLOGY METHOD 02/26/2025 5:25 AM EDT [facility] RBC Count 4.00 3.90 - 5.20 10*6/uL LAB HEMATOLOGY METHOD 02/26/2025 5:25 AM EDT [facility] HGB 10.3(L) 11.2 - 15.7 g/dL LAB HEMATOLOGY METHOD 02/26/2025 5:25 AM EDT [facility] HCT 32.3(L) 34.0 - 45.0 % LAB HEMATOLOGY METHOD 02/26/2025 5:25 AM EDT [facility] Platelet Count 375(H) 155 - 369 10*3/uL LAB HEMATOLOGY METHOD 02/26/2025 5:25 AM EDT [facility] MCV 81 79 - 98 fL LAB HEMATOLOGY METHOD 02/26/2025 5:25 AM EDT [facility] MCH 25.8(L) 26.0 - 32.0 pg LAB HEMATOLOGY METHOD 02/26/2025 5:25 AM EDT [facility] MCHC 31.9 30.7 - 35.5 g/dL LAB HEMATOLOGY METHOD 02/26/2025 5:25 AM EDT [facility] RDW 15.5(H) 11.5 - 14.5 % LAB HEMATOLOGY METHOD 02/26/2025 5:25 AM EDT [facility] MPV 8.9 8.8 - 12.5 fL LAB HEMATOLOGY METHOD 02/26/2025 5:25 AM EDT [facility] nRBC 0.0 <=0.0 per 100 WBCs LAB HEMATOLOGY METHOD 02/26/2025 5:25 AM EDT [facility] Blood Venous blood specimen / Unknown Venipuncture / Unknown 02/26/2025 4:51 AM EDT 02/26/2025 5:12 AM EDT us Ludy Hill MD LAB BLOOD ORDERABLES Final Resul t [facility] [address] [place] [address] * (ABNORMAL) Magnesium, Plasma (02/26/2025 4:51 AM EDT) Magnesium, Plasma 1.7(L) 1.9 - 2.4 mg/dL 02/26/2025 5:54 AM EDT [facility] Blood Venous blood specimen / Unknown Venipuncture / Unknown 02/26/2025 4:51 AM EDT 02/26/2025 5:13 AM EDT us Ludy Hill MD LAB BLOOD ORDERABLES Final Resul t [facility] [address] [place] [address] * (ABNORMAL) Renal function panel (02/26/2025 4:51 AM EDT) Glucose, Plasma 156(H) 74 - 99 mg/dL 02/26/2025 5:54 AM EDT [facility] BUN, Plasma 26(H) 8 - 23 mg/dL 02/26/2025 5:54 AM EDT [facility] Creatinine, Plasma 1.62(H) 0.60 - 1.10 mg/dL 02/26/2025 5:54 AM EDT [facility] BUN/Creatinine Ratio 16 02/26/2025 5:54 AM EDT [facility] Sodium, Plasma 133(L) 136 - 145 mmol/L 02/26/2025 5:54 AM EDT [facility] Potassium, Plasma 4.2 3.6 - 4.9 mmol/L 02/26/2025 5:54 AM EDT [facility] Chloride, Plasma 96(L) 97 - 107 mmol/L 02/26/2025 5:54 AM EDT [facility] CO2, Plasma 24 22 - 29 mmol/L 02/26/2025 5:54 AM EDT [facility] Anion Gap 13 6 - 16 mmol/L 02/26/2025 5:54 AM EDT [facility] Total Calcium, Plasma 8.9 8.9 - 10.2 mg/dL 02/26/2025 5:54 AM EDT [facility] Phosphorus, Plasma 3.8 2.5 - 4.5 mg/dL 02/26/2025 5:54 AM EDT [facility] Albumin, Plasma 3.5 3.5 - 5.2 g/dL 02/26/2025 5:54 AM EDT [facility] eGFRcr 35.1 mL/min/1.7 3m*2 02/26/2025 5:54 AM EDT [facility] Comment:Reported eGFRcr in m L/min/1.73m2 is based the CKD-EPI 2020 equation that does not use a race coefficient. Blood Venous blood specimen / Unknown Venipuncture / Unknown 02/26/2025 4:51 AM EDT 02/26/2025 5:13 AM EDT us Ludy Hill MD LAB BLOOD ORDERABLES Final Resul t Performing Organization Address City/[facility] Co de Phone Number [facility] [address] [place] [address] * (ABNORMAL) POCT glucose meter (02/25/2025 8:37 PM EDT) [facility] POCT Glucose 289(H) 74 - 99 mg/dL 02/25/2025 8:39 PM EDT [facility] Comment:Accuracy of a glucos e result obtained from a capillary whole blood specimen relies upon adequate, non-compromised capillary blood flow. If the capillary glucose result is not consistent with the patient's clinical signs and symptoms, glucose testing should be repeated with either an arterial or venous sample on the glucometer or sent to the main labortory for testing. Comment 02/25/2025 8:39 PM EDT [facility] Screen Examiner ID Daniela Mcbride 02/25/2025 8:39 PM EDT [facility] LAB Device ID [id number] 02/25/2025 8:39 PM EDT [facility] Specimen Type POC Capillary 02/25/2025 8:39 PM EDT [facility] Blood Capillary blood specimen / Unknown 02/25/2025 8:37 PM EDT 02/25/2025 8:39 PM EDT us Ludy Hill MD LAB POINT OF CARE TE ST DOCKED DEVICE UNSOLICITED RESULTS Final Result Performing Organization Address City/[facility]/ZIP Co de Phone Number [facility] [address] [place] [address] * ECG Adult (02/25/2025 6:38 PM EDT) EKG DIAGNOSIS CLASS Abnormal MUSE ECG Ventricular Rate 68 BPM MUSE ECG Atrial Rate 68 BPM MUSE ECG PA Interval 198 ms MUSE ECG QRSD Interval 136 ms MUSE ECG QT Interval 450 ms MUSE ECG QTC Interval 478 ms MUSE ECG P Nabb 71 degrees MUSE ECG R Nabb 265 degrees MUSE ECG T Wave Nabb 50 degrees MUSE ECG Diagnosis Sinus rhythm with marked sinus arrhythmia MUSE ECG Diagnosis Right bundle branch block MUSE ECG Diagnosis Abnormal ECG MUSE ECG Diagnosis MUSE ECG Diagnosis Confirmed by Karly Gracia ([id number]) on 02/26/2025 3:20:41 PM MUSE ECG 02/25/2025 6:38 PM EDT 02/26/2025 3:20 PM EDT us Ludy Hill MD ECG ORDERABLES Final Result Performing Organization Address City/[facility]/ZIP Co de Phone Number MUSE ECG * (ABNORMAL) POCT glucose meter (02/25/2025 5:28 PM EDT) POCT Glucose 166(H) 74 - 99 mg/dL 02/25/2025 5:30 PM EDT [facility] Comment:Accuracy of a glucos e result obtained from a capillary whole blood specimen relies upon adequate, non-compromised capillary blood flow. If the capillary glucose result is not consistent with the patient's clinical signs and symptoms, glucose testing should be repeated with either an arterial or venous sample on the glucometer or sent to the main labortory for testing. Comment 02/25/2025 5:30 PM EDT [facility] Screen Examiner ID Bsasem Jay 02/25/2025 5:30 PM EDT [facility] Device ID [id number] 02/25/2025 5:30 PM EDT [facility] Specimen Type POC Capillary 02/25/2025 5:30 PM EDT [facility] Blood Capillary blood specimen / Unknown 02/25/2025 5:28 PM EDT 02/25/2025 5:30 PM EDT us Ludy Hill MD LAB POINT OF CARE TE ST DOCKED DEVICE UNSOLICITED RESULTS Final Result Performing Organization Address City/[facility]/ZIP Co de Phone Number [facility] [address] [place] [address] * (ABNORMAL) POCT glucose meter (02/25/2025 1:08 PM EDT) POCT Glucose 157(H) 74 - 99 mg/dL 02/25/2025 1:09 PM EDT [facility] Comment:Accuracy of a glucos e result obtained from a capillary whole blood specimen relies upon adequate, non-compromised capillary blood flow. If the capillary glucose result is not consistent with the patient's clinical signs and symptoms, glucose testing should be repeated with either an arterial or venous sample on the glucometer or sent to the main labortory for testing. Comment 02/25/2025 1:09 PM EDT [facility] Screen Examiner ID Bassem Jay 02/25/2025 1:09 PM EDT [facility] Device ID [id number] 02/25/2025 1:09 PM EDT [facility] Specimen Type POC Capillary 02/25/2025 1:09 PM EDT [facility] Blood Capillary blood specimen / Unknown 02/25/2025 1:08 PM EDT 02/25/2025 1:09 PM EDT us Ludy Hill MD LAB POINT OF CARE TE ST DOCKED DEVICE UNSOLICITED RESULTS Final Result Performing Organization Address City/[facility]/ZIP Co de Phone Number [facility] [address] [place] [address] * ECG Adult (02/25/2025 12:27 PM EDT) EKG DIAGNOSIS CLASS Abnormal MUSE ECG Ventricular Rate 79 BPM MUSE ECG Atrial Rate 79 BPM MUSE ECG PA Interval 184 ms MUSE ECG QRSD Interval 134 ms MUSE ECG QT Interval 414 ms MUSE ECG QTC Interval 474 ms MUSE ECG R Nabb 229 degrees MUSE ECG T Wave Nabb 59 degrees MUSE ECG Diagnosis Sinus rhythm with premature supraventricular complexes MUSE ECG Diagnosis Right bundle branch block MUSE ECG Diagnosis Abnormal ECG MUSE ECG Diagnosis MUSE ECG Diagnosis Confirmed by Bert Pierre ([id number]) on 02/25/2025 2:37:14 PM MUSE ECG 02/25/2025 12:2 7 PM EDT 02/25/2025 2:37 PM EDT us Ludy Hill MD ECG ORDERABLES Final Result MUSE ECG * (ABNORMAL) POCT glucose meter (02/25/2025 8:21 AM EDT) [facility] POCT Glucose 128(H) 74 - 99 mg/dL 02/25/2025 8:22 AM EDT [facility] Comment:Accuracy of a glucos e result obtained from a capillary whole blood specimen relies upon adequate, non-compromised capillary blood flow. If the capillary glucose result is not consistent with the patient's clinical signs and symptoms, glucose testing should be repeated with either an arterial or venous sample on the glucometer or sent to the main labortory for testing. Comment 02/25/2025 8:22 AM EDT [facility] Screen Examiner ID Bassem Jay 02/25/2025 8:22 AM EDT [facility] LAB Device ID [id number] 02/25/2025 8:22 AM EDT [facility] Specimen Type POC Capillary 02/25/2025 8:22 AM EDT [facility] Blood Capillary blood specimen / Unknown 02/25/2025 8:21 AM EDT 02/25/2025 8:22 AM EDT Luda Ralph MD LAB POINT OF CARE TE ST DOCKED DEVICE UNSOLICITED RESULTS Final Result Performing Organization Address City/[facility]/ZIP Co de Phone Number [facility] [address] [place] [address] * (ABNORMAL) Cystatin C (02/25/2025 1:36 AM EDT) [facility] Cystatin C 2.37(H) 0.61 - 0.95 mg/L 02/25/2025 2:27 AM EDT [facility] Blood Venous blood specimen / Unknown Venipuncture / Unknown 02/25/2025 1:36 AM EDT 02/25/2025 1:57 AM EDT us Luda Ralph MD LAB BLOOD ORDERABLES Final R esult Performing Organization Address City/[facility]/ZIP Co de Phone Number [facility] [address] [place] [address] * (ABNORMAL) Basic Metabolic Panel, Plasma (02/25/2025 1:36 AM EDT) [facility] Glucose, Plasma 95 74 - 99 mg/dL 02/25/2025 2:27 AM EDT [facility] BUN, Plasma 34(H) 8 - 23 mg/dL 02/25/2025 2:27 AM EDT [facility] Creatinine, Plasma 1.62(H) 0.60 - 1.10 mg/dL 02/25/2025 2:27 AM EDT [facility] BUN/Creatinine Ratio 21 02/25/2025 2:27 AM EDT [facility] Sodium, Plasma 134(L) 136 - 145 mmol/L 02/25/2025 2:27 AM EDT [facility] Potassium, Plasma 3.9 3.6 - 4.9 mmol/L 02/25/2025 2:27 AM EDT [facility] Chloride, Plasma 97 97 - 107 mmol/L 02/25/2025 2:27 AM EDT [facility] CO2, Plasma 23 22 - 29 mmol/L 02/25/2025 2:27 AM EDT [facility] Anion Gap 14 6 - 16 mmol/L 02/25/2025 2:27 AM EDT [facility] Total Calcium, Plasma 8.9 8.9 - 10.2 mg/dL 02/25/2025 2:27 AM EDT [facility] eGFRcr 35.1 mL/min/1.7 3m*2 02/25/2025 2:27 AM EDT [facility] Comment:Reported eGFRcr in m L/min/1.73m2 is based the CKD-EPI 2020 equation that does not use a race coefficient. Blood Venous blood specimen / Unknown Venipuncture / Unknown 02/25/2025 1:36 AM EDT 02/25/2025 1:57 AM EDT us Luad Ralph MD LAB BLOOD ORDERABLES Final R esult [facility] [address] [place] [address] * (ABNORMAL) POCT glucose meter (02/24/2025 8:21 PM EDT) POCT Glucose 149(H) 74 - 99 mg/dL 02/24/2025 8:22 PM EDT [facility] Comment:Accuracy of a glucos e result obtained from a capillary whole blood specimen relies upon adequate, non-compromised capillary blood flow. If the capillary glucose result is not consistent with the patient's clinical signs and symptoms, glucose testing should be repeated with either an arterial or venous sample on the glucometer or sent to the main labortory for testing. Comment 02/24/2025 8:22 PM EDT [facility] Screen Examiner ID Daniela Mcbride 02/24/2025 8:22 PM EDT [facility] LAB Device ID [id number] 02/24/2025 8:22 PM EDT [facility] Specimen Type POC Capillary 02/24/2025 8:22 PM EDT [facility] Blood Capillary blood specimen / Unknown 02/24/2025 8:21 PM EDT 02/24/2025 8:22 PM EDT Luda Ralph MD LAB POINT OF CARE TE ST DOCKED DEVICE UNSOLICITED RESULTS Final Result [facility] [address] [place] [address] * POCT glucose meter (02/24/2025 5:55 PM EDT) [facility] POCT Glucose 93 74 - 99 mg/dL 02/24/2025 5:56 PM EDT [facility] Comment:Accuracy of a glucos e result obtained from a capillary whole blood specimen relies upon adequate, non-compromised capillary blood flow. If the capillary glucose result is not consistent with the patient's clinical signs and symptoms, glucose testing should be repeated with either an arterial or venous sample on the glucometer or sent to the main labortory for testing. Comment 02/24/2025 5:56 PM EDT [facility]ALTHCARE LAB Screen Examiner ID Delroy Bernal 02/24/2025 5:56 PM EDT [facility] Device ID [id number] 02/24/2025 5:56 PM EDT [facility] Specimen Type POC Capillary 02/24/2025 5:56 PM EDT [facility] Blood Capillary blood specimen / Unknown 02/24/2025 5:55 PM EDT 02/24/2025 5:56 PM EDT us Luda Ralph MD LAB POINT OF CARE TE ST DOCKED DEVICE UNSOLICITED RESULTS Final Result Performing Organization Address [facility] de Phone Number [facility]ALTHCARE LAB [address] [place] [address] * (ABNORMAL) POCT glucose meter (02/24/2025 11:26 AM EDT) POCT Glucose 128(H) 74 - 99 mg/dL 02/24/2025 11:27 AM EDT [facility] Comment:Accuracy of [...] to the main labortory for testing. Comment 02/24/2025 11:27 AM EDT [facility] Screen Examiner ID Delroy Bernal 02/24/2025 11:27 AM EDT [facility] Device ID [id number] 02/24/2025 11:27 AM EDT [facility] Specimen Type POC Capillary 02/24/2025 11:27 AM EDT [facility] Blood Capillary blood specimen / Unknown 02/24/2025 11:26 AM EDT 02/24/2025 11:27 AM EDT us Luda Ralph MD LAB POINT OF CARE TE ST DOCKED DEVICE UNSOLICITED RESULTS Final Result Performing Organization Address City/[facility] de Phone Number [facility] [address] [place] [address] * PA CRITICAL CARE, E/M 30-74 MINUTES (02/24/2025 7:08 AM EDT) Narrative Luda Ralph MD - 02/24/2025 7:08 AM EDT Luda Ralph MD 02/26/2025 4:10 PM Critical Care Performed by: Luda Ralph MD Authorized by: Luda Ralph MD Critical care provider statement: Critical care time (minutes): 31 Critical care time was exclusive of: Separately billable procedures and treating other patients and teaching time Critical care was time spent personally by me on the following activities: Development of treatment plan with patient or surrogate, discussions with consultants, discussions with primary provider, evaluation of patient's response to treatment, examination of patient, obtaining history from patient or surrogate, ventilator management, review of old charts, ordering and review of radiographic studies, ordering and review of laboratory studies and ordering and performing treatments and interventions I assumed subsequent critical care for this patient from a provider in my division, on the same day: no Critical care statement: I saw and evaluated the patient with the resident/ fellow. I discussed the case with the resident/ fellow and agree with the findings and plan as documented. Comments: 64 YO F with history of obesity and neurogenic bladder admitted with acute encephalopathy and acute mixed respiratory failure requiring intubation and mechanical ventilation. Improving overall and successfully extubated early today. Continues to not show signs to suggest a need for antimicrobial therapy. Hyponatremia has improved, and likely reflects hypovolemia in setting of acute illness. us Luda Ralph MD IN CLINIC/BEDSIDE ORDERABLES Final Result * (ABNORMAL) POCT glucose meter (02/24/2025 5:20 AM EDT) [facility] POCT Glucose 180(H) 74 - 99 mg/dL 02/24/2025 5:22 AM EDT [facility] Comment:Accuracy of a glucos e result obtained from a capillary whole blood specimen relies upon adequate, non-compromised capillary blood flow. If the capillary glucose result is not consistent with the patient's clinical signs and symptoms, glucose testing should be repeated with either an arterial or venous sample on the glucometer or sent to the main labortory for testing. Comment 02/24/2025 5:22 AM EDT [facility] Screen Examiner ID Daniela Mcbride 02/24/2025 5:22 AM EDT [facility] Device ID [id number] 02/24/2025 5:22 AM EDT [facility] Specimen Type POC Capillary 02/24/2025 5:22 AM EDT [facility] Blood Capillary blood specimen / Unknown 02/24/2025 5:20 AM EDT 02/24/2025 5:22 AM EDT us Luda Ralph MD LAB POINT OF CARE TE ST DOCKED DEVICE UNSOLICITED RESULTS Final Result [facility] [address] [place] [address] * (ABNORMAL) Cystatin C (02/24/2025 1:01 AM EDT) Pathologist [facility] Cystatin C 2.5(H) 0.61 - 0.95 mg/L 02/24/2025 10:16 AM EDT [facility] Blood Venous blood specimen / Unknown Venipuncture / Unknown 02/24/2025 1:01 AM EDT 02/24/2025 1:06 AM EDT us Luda Ralph MD LAB BLOOD ORDERABLES Final R esult [facility] [address] [place] [address] * (ABNORMAL) CBC and Differential (02/24/2025 1:01 AM EDT) Pathologist [facility] WBC Count 9.39 3.70 - 10.30 10*3/uL LAB HEMATOLOGY METHOD 02/24/2025 1:16 AM EDT [facility] RBC Count 3.53(L) 3.90 - 5.20 10*6/uL LAB HEMATOLOGY METHOD 02/24/2025 1:16 AM EDT [facility] HGB 9.1(L) 11.2 - 15.7 g/dL LAB HEMATOLOGY METHOD 02/24/2025 1:16 AM EDT [facility] HCT 28.3(L) 34.0 - 45.0 % LAB HEMATOLOGY METHOD 02/24/2025 1:16 AM EDT [facility] Platelet Count 315 155 - 369 10*3/uL LAB HEMATOLOGY METHOD 02/24/2025 1:16 AM EDT [facility] MCV 80 79 - 98 fL LAB HEMATOLOGY METHOD 02/24/2025 1:16 AM EDT [facility] MCH 25.8(L) 26.0 - 32.0 pg LAB HEMATOLOGY METHOD 02/24/2025 1:16 AM EDT [facility] MCHC 32.2 30.7 - 35.5 g/dL LAB HEMATOLOGY METHOD 02/24/2025 1:16 AM EDT [facility] RDW 15.2(H) 11.5 - 14.5 % LAB HEMATOLOGY METHOD 02/24/2025 1:16 AM EDT [facility] MPV 9.3 8.8 - 12.5 fL LAB HEMATOLOGY METHOD 02/24/2025 1:16 AM EDT [facility] nRBC 0.0 <=0.0 per 100 WBCs LAB HEMATOLOGY METHOD 02/24/2025 1:16 AM EDT [facility] Differential Type Automated LAB HEMATOLOGY METHOD 02/24/2025 1:16 AM EDT [facility] Neutrophils % 71 % LAB HEMATOLOGY METHOD 02/24/2025 1:16 AM EDT [facility] Lymphocytes % 15 % LAB HEMATOLOGY METHOD 02/24/2025 1:16 AM EDT [facility] Monocytes % 13 % LAB HEMATOLOGY METHOD 02/24/2025 1:16 AM EDT [facility] Eosinophils % 0 % LAB HEMATOLOGY METHOD 02/24/2025 1:16 AM EDT [facility] Basophils % 0 % LAB HEMATOLOGY METHOD 02/24/2025 1:16 AM EDT [facility] Immature Granulocytes % 1 % LAB HEMATOLOGY METHOD 02/24/2025 1:16 AM EDT [facility] Neutrophils Absolute 6.64(H) 1.60 - 6.10 10*3/uL LAB HEMATOLOGY METHOD 02/24/2025 1:16 AM EDT [facility] Lymphocytes Absolute 1.40 1.20 - 3.90 10*3/uL LAB HEMATOLOGY METHOD 02/24/2025 1:16 AM EDT [facility] Monocytes Absolute 1.25(H) 0.30 - 0.90 10*3/uL LAB HEMATOLOGY METHOD 02/24/2025 1:16 AM EDT [facility] Eosinophils Absolute 0.02 0.00 - 0.50 10*3/uL LAB HEMATOLOGY METHOD 02/24/2025 1:16 AM EDT [facility] Basophils Absolute 0.02 0.00 - 0.10 10*3/uL LAB HEMATOLOGY METHOD 02/24/2025 1:16 AM EDT [facility] Immature Granulocytes Absolute 0.06 0.00 - 0.06 10*3/uL LAB HEMATOLOGY METHOD 02/24/2025 1:16 AM EDT [facility] Blood Venous blood specimen / Unknown Venipuncture / Unknown 02/24/2025 1:01 AM EDT 02/24/2025 1:06 AM EDT Narrative [facility] - 02/24/2025 1:16 AM EDT Therapeutic decision making should be based on absolute values, rather than percentages. us Luda Ralph MD LAB BLOOD ORDERABLES Final R esult [facility] [address] [place] [address] * (ABNORMAL) Comprehensive metabolic panel (02/24/2025 1:01 AM EDT) Glucose, Plasma 152(H) 74 - 99 mg/dL 02/24/2025 1:44 AM EDT [facility] BUN, Plasma 40(H) 8 - 23 mg/dL 02/24/2025 1:44 AM EDT [facility] Creatinine, Plasma 2.04(H) 0.60 - 1.10 mg/dL 02/24/2025 1:44 AM EDT [facility] BUN/Creatinine Ratio 20 02/24/2025 1:44 AM EDT [facility] Sodium, Plasma 132(L) 136 - 145 mmol/L 02/24/2025 1:44 AM EDT [facility] Potassium, Plasma 4.9 3.6 - 4.9 mmol/L 02/24/2025 1:44 AM EDT [facility] Chloride, Plasma 97 97 - 107 mmol/L 02/24/2025 1:44 AM EDT [facility] CO2, Plasma 22 22 - 29 mmol/L 02/24/2025 1:44 AM EDT [facility] Anion Gap 13 6 - 16 mmol/L 02/24/2025 1:44 AM EDT [facility] Total Calcium, Plasma 8.6(L) 8.9 - 10.2 mg/dL 02/24/2025 1:44 AM EDT [facility] Total Protein 6.9 6.3 - 7.9 g/dL 02/24/2025 1:44 AM EDT [facility] Albumin, Plasma 3.3(L) 3.5 - 5.2 g/dL 02/24/2025 1:44 AM EDT [facility] AST, Plasma 16 10 - 35 U/L 02/24/2025 1:44 AM EDT [facility] Comment:Hemolyzed, result ma y be falsely increased. ALT, Plasma 15 10 - 35 U/L 02/24/2025 1:44 AM EDT [facility] Alkaline Phosphatase, Plasma 105 46 - 142 U/L 02/24/2025 1:44 AM EDT [facility] Total Bilirubin, Plasma <0.2(L) 0.2 - 1.1 mg/dL 02/24/2025 1:44 AM EDT [facility] eGFRcr 26.6 mL/min/1.7 3m*2 02/24/2025 1:44 AM EDT [facility] Comment:Reported eGFRcr in m L/min/1.73m2 is based the CKD-EPI 2020 equation that does not use a race coefficient. Blood Venous blood specimen / Unknown Venipuncture / Unknown 02/24/2025 1:01 AM EDT 02/24/2025 1:06 AM EDT Luda Ralph MD LAB BLOOD ORDERABLES Final R [facility] Performing Organization Address City/[facility]/ZIP Co de Phone Number [facility] [address] [place] [address] * (ABNORMAL) Ionized calcium, whole blood (02/24/2025 1:01 AM EDT) Ionized Calcium, Whole Blood 4.4(L) 4.6 - 5.1 mg/dL LAB HEMATOLOGY METHOD 02/24/2025 1:14 AM EDT [facility] Blood Venous blood specimen / Unknown Venipuncture / Unknown 02/24/2025 1:01 AM EDT 02/24/2025 1:13 AM EDT us Luda Ralph MD LAB BLOOD ORDERABLES Final R esult Performing Organization Address City/[facility]/ZIP Co de Phone Number [facility] [address] [place] [address] * Phosphorus (02/24/2025 1:01 AM EDT) Phosphorus, Plasma 3.0 2.5 - 4.5 mg/dL 02/24/2025 1:44 AM EDT [facility] Blood Venous blood specimen / Unknown Venipuncture / Unknown 02/24/2025 1:01 AM EDT 02/24/2025 1:06 AM EDT us Luda Ralph MD LAB BLOOD ORDERABLES Final R esult Performing Organization Address City/[facility] Co de Phone Number [facility] [address] [place] [address] * Magnesium, Plasma (02/24/2025 1:01 AM EDT) Magnesium, Plasma 2.2 1.9 - 2.4 mg/dL 02/24/2025 1:44 AM EDT [facility] Blood Venous blood specimen / Unknown Venipuncture / Unknown 02/24/2025 1:01 AM EDT 02/24/2025 1:06 AM EDT us Luda Ralph MD LAB BLOOD ORDERABLES Final R esult Performing Organization Address [facility] [place] [address] * (ABNORMAL) Procalcitonin (02/24/2025 1:01 AM EDT) Procalcitonin, Plasma 0.12(H) <0.09 ng/mL 02/24/2025 1:44 AM EDT [facility] Blood Venous blood specimen / Unknown Venipuncture / Unknown 02/24/2025 1:01 AM EDT 02/24/2025 1:06 AM EDT Narrative [facility] - 02/24/2025 1:44 AM EDT Procalcitonin concentrations in healthy individuals are <0.09 ng/mL. Published data support the following interpretive risk assessment: An elevated procalcitonin result does not always indicate sepsis. Various non-infectious conditions are known to increase procalcitonin. Results should be considered in the context of clinical symptoms and other laboratory tests. Procalcitonin >2.0 ng/mL: Concentrations >2.0 ng/mL on the first day of ICU admission are associated with a higher risk of progression to severe sepsis and/or septic shock. The change in PCT over time may help predict 28 day mortality risk. Please consult www.ngkvaa-ute-vnhrkkpwxi[employer] for more information. Test performed at [facility]. us Luda Ralph MD LAB BLOOD ORDERABLES Final R esult [facility] [address] [place] [address] * (ABNORMAL) Blood gas panel, venous (02/24/2025 1:01 AM EDT) pH, Venous 7.43 7.32 - 7.43 LAB HEMATOLOGY METHOD 02/24/2025 1:19 AM EDT [facility] pCO2, Venous 40 37 - 52 mmHg LAB HEMATOLOGY METHOD 02/24/2025 1:19 AM EDT [facility] pO2, Venous 143(H) 25 - 40 mmHg LAB HEMATOLOGY METHOD 02/24/2025 1:19 AM EDT [facility] SO2, Measured, Venous 98(H) 65 - 80 % LAB HEMATOLOGY METHOD 02/24/2025 1:19 AM EDT [facility] Base Excess, Venous 1.9 -2.0 - 3.0 mmol/L LAB HEMATOLOGY METHOD 02/24/2025 1:19 AM EDT [facility] Bicarbonate, Calculated, Venous 27(H) 22 - 26 mmol/L LAB HEMATOLOGY METHOD 02/24/2025 1:19 AM EDT [facility] Hematocrit, Whole Blood 27.7(L) 34.0 - 45.0 % LAB HEMATOLOGY METHOD 02/24/2025 1:19 AM EDT [facility] Sodium, Whole Blood 132(L) 136 - 145 mmol/L LAB HEMATOLOGY METHOD 02/24/2025 1:19 AM EDT [facility] Potassium, Whole Blood 4.3 3.6 - 4.9 mmol/L LAB HEMATOLOGY METHOD 02/24/2025 1:19 AM EDT [facility] Chloride, Whole Blood 99 97 - 107 mmol/L LAB HEMATOLOGY METHOD 02/24/2025 1:19 AM EDT [facility] Glucose, Whole Blood 154(H) 74 - 99 mg/dL LAB HEMATOLOGY METHOD 02/24/2025 1:19 AM EDT [facility] Lactate, Venous, Whole Blood 0.9 0.5 - 2.2 mmol/L LAB HEMATOLOGY METHOD 02/24/2025 1:19 AM EDT [facility] Ionized Calcium, Whole Blood 4.2(L) 4.6 - 5.1 mg/dL LAB HEMATOLOGY METHOD 02/24/2025 1:19 AM EDT [facility] Blood Venous blood specimen / Unknown Venipuncture / Unknown 02/24/2025 1:01 AM EDT 02/24/2025 1:13 AM EDT us Luda Ralph MD LAB BLOOD ORDERABLES Final R esult [facility] [address] [place] [address] * (ABNORMAL) POCT glucose meter (02/24/2025 1:00 AM EDT) POCT Glucose 169(H) 74 - 99 mg/dL 02/24/2025 1:02 AM EDT [facility] Comment:Accuracy of a glucos e result obtained from a capillary whole blood specimen relies upon adequate, non-compromised capillary blood flow. If the capillary glucose result is not consistent with the patient's clinical signs and symptoms, glucose testing should be repeated with either an arterial or venous sample on the glucometer or sent to the main labortory for testing. Comment 02/24/2025 1:02 AM EDT [facility] Screen Examiner ID Daniela Mcbride 02/24/2025 1:02 AM EDT [facility] Device ID [id number] 02/24/2025 1:02 AM EDT [facility] Specimen Type POC Capillary 02/24/2025 1:02 AM EDT [facility] Blood Capillary blood specimen / Unknown 02/24/2025 1:00 AM EDT 02/24/2025 1:02 AM EDT us Ldua Ralph MD LAB POINT OF CARE TE ST DOCKED DEVICE UNSOLICITED RESULTS Final Result Performing Organization Address City/[facility]/ZIP Co de Phone Number [facility] [address] [place] [address] * (ABNORMAL) POCT glucose meter (02/23/2025 5:07 PM EDT) POCT Glucose 202(H) 74 - 99 mg/dL 02/23/2025 5:08 PM EDT [facility] Comment:Accuracy of a glucos e result obtained from a capillary whole blood specimen relies upon adequate, non-compromised capillary blood flow. If the capillary glucose result is not consistent with the patient's clinical signs and symptoms, glucose testing should be repeated with either an arterial or venous sample on the glucometer or sent to the main labortory for testing. Comment 02/23/2025 5:08 PM EDT [facility] Screen Examiner ID WetzoldTemi 02/23/2025 5:08 PM EDT [facility] LAB Device ID [id number] 02/23/2025 5:08 PM EDT [facility] Specimen Type POC Capillary 02/23/2025 5:08 PM EDT [facility] Blood Capillary blood specimen / Unknown 02/23/2025 5:07 PM EDT 02/23/2025 5:08 PM EDT us Luda Ralph MD LAB POINT OF CARE TE ST DOCKED DEVICE UNSOLICITED RESULTS Final Result Performing Organization Address [facility]/ZIP Co de Phone Number [facility] [address] [place] [address] * Sodium, urine, random (02/23/2025 3:12 PM EDT) Sodium, Urine 31 mmol/L 02/23/2025 4:03 PM EDT [facility] Urine Urine specimen from urinary conduit / Unknown Non-blood Collection / Unknown 02/23/2025 3:12 PM EDT 02/23/2025 3:24 PM EDT us Luda Ralph MD LAB URINE ORDERABLES Final R esult Performing Organization Address City/[facility]/ZIP Co de Phone Number [facility] [address] [place] [address] * Osmolality, urine (02/23/2025 3:12 PM EDT) Osmolality, Urine 408 50 - 1,200 mOsm/kg 02/23/2025 3:59 PM EDT [facility] Urine Urine specimen from urinary conduit / Unknown Non-blood Collection / Unknown 02/23/2025 3:12 PM EDT 02/23/2025 3:23 PM EDT Luda Ralph MD LAB URINE ORDERABLES Final R esult [facility] [address] [place] [address] * Osmolality (02/23/2025 3:04 PM EDT) Osmolality, Serum 289 280 - 301 mOsm/Kg 02/23/2025 4:11 PM EDT [facility] Blood Venous blood specimen / Unknown Venipuncture / Unknown 02/23/2025 3:04 PM EDT 02/23/2025 3:13 PM EDT us Luda Ralph MD LAB BLOOD ORDERABLES Final R esult Performing Organization Address City/[facility]/ZIP Co de Phone Number [facility] [address] [place] [address] * (ABNORMAL) Cystatin C (02/23/2025 3:04 PM EDT) Cystatin C 2.32(H) 0.61 - 0.95 mg/L 02/23/2025 3:44 PM EDT [facility] Blood Venous blood specimen / Unknown Venipuncture / Unknown 02/23/2025 3:04 PM EDT 02/23/2025 3:13 PM EDT us Luda Ralph MD LAB BLOOD ORDERABLES Final R esult [facility] [address] [place] [address] * (ABNORMAL) Sodium (02/23/2025 3:04 PM EDT) [facility] Sodium, Plasma 129(L) 136 - 145 mmol/L 02/23/2025 3:44 PM EDT [facility] Blood Venous blood specimen / Unknown Venipuncture / Unknown 02/23/2025 3:04 PM EDT 02/23/2025 3:13 PM EDT Luda Ralph MD LAB BLOOD ORDERABLES Final R esult Performing Organization Address City/[facility]/ZIP Co de Phone Number [facility] [address] [place] [address] * (ABNORMAL) POCT glucose meter (02/23/2025 11:43 AM EDT) [facility] POCT Glucose 222(H) 74 - 99 mg/dL 02/23/2025 11:44 AM EDT [facility] Comment:Accuracy of a glucos e result obtained from a capillary whole blood specimen relies upon adequate, non-compromised capillary blood flow. If the capillary glucose result is not consistent with the patient's clinical signs and symptoms, glucose testing should be repeated with either an arterial or venous sample on the glucometer or sent to the main labortory for testing. Comment 02/23/2025 11:44 AM EDT [facility] Screen Examiner ID Temi Mao 02/23/2025 11:44 AM EDT [facility]ARE LAB Device ID [id number] 02/23/2025 11:44 AM EDT [facility] Specimen Type POC Capillary 02/23/2025 11:44 AM EDT [facility] Blood Capillary blood specimen / Unknown 02/23/2025 11:43 AM EDT 02/23/2025 11:44 AM EDT us Luda Ralph MD LAB POINT OF CARE TE ST DOCKED DEVICE UNSOLICITED RESULTS Final Result Performing Organization Address City/[facility]/ZIP Co de Phone Number [facility] [address] [place] [address] * Streptococcus pneumoniae and Legionella Urinary Antigen (02/23/2025 11:05 AM EDT) [facility] Legionella pneumophila serogroup 1 Antigen Result (Urine) Negative Negative 02/24/2025 7:01 AM EDT [facility] Streptococcus pneumoniae Antigen Result (Urine) Negative Negative 02/24/2025 7:01 AM EDT [facility] Urine Urine specimen obtained by clean catch procedure / Unknown Non-blood Collection / Unknown 02/23/2025 11:05 AM EDT 02/23/2025 11:16 AM EDT us Luda Ralph MD LAB MICROBIOLOGY - GENERAL O RDERABLES Final Result [facility] [address] [place] [address] * PA CRITICAL CARE, E/M 30-74 MINUTES (02/23/2025 9:10 AM EDT) Narrative Luda Ralph MD - 02/23/2025 9:10 AM EDT Luda Ralph MD 02/26/2025 4:07 PM Critical Care Performed by: Luda Ralph MD Authorized by: Luda Ralph MD Critical care provider statement: Critical care time (minutes): 36 Critical care time was exclusive of: Separately billable procedures and treating other patients and teaching time Critical care was time spent personally by me on the following activities: Development of treatment plan with patient or surrogate, discussions with consultants, discussions with primary provider, evaluation of patient's response to treatment, examination of patient, obtaining history from patient or surrogate, ventilator management, review of old charts, ordering and review of radiographic studies, ordering and review of laboratory studies and ordering and performing treatments and interventions I assumed subsequent critical care for this patient from a provider in my division, on the same day: no Critical care statement: I saw and evaluated the patient with the resident/ fellow. I discussed the case with the resident/ fellow and agree with the findings and plan as documented. Comments: 64 YO F with history of obesity and neurogenic bladder admitted with acute encephalopathy and acute mixed respiratory failure requiring intubation and mechanical ventilation. There is no evidence of a bacterial pneumonia, and will discontinue abx as this is favored to represent primarily a viral process. Will optimize respiratory mechanics and volume status. us Luda Ralph MD IN CLINIC/BEDSIDE ORDERABLES Final Result * Vancomycin, random (02/23/2025 8:34 AM EDT) Vancomycin, Random, Plasma 25.9 ug/mL 02/23/2025 9:20 AM EDT [facility] Blood Venous blood specimen / Unknown Venipuncture / Unknown 02/23/2025 8:34 AM EDT 02/23/2025 8:50 AM EDT Luda Ralph MD LAB BLOOD ORDERABLES Final R esult Performing Organization Address City/[facility]/ZIP Co de Phone Number [facility] [address] [place] [address] * (ABNORMAL) Sodium (02/23/2025 8:34 AM EDT) Sodium, Plasma 127(L) 136 - 145 mmol/L 02/23/2025 9:20 AM EDT [facility] Blood Venous blood specimen / Unknown Venipuncture / Unknown 02/23/2025 8:34 AM EDT 02/23/2025 8:50 AM EDT Luda Ralph MD LAB BLOOD ORDERABLES Final R esult Performing Organization Address City/[facility] Co de Phone Number [facility] [address] [place] [address] * (ABNORMAL) Blood gas panel, venous (02/23/2025 8:34 AM EDT) pH, Venous 7.39 7.32 - 7.43 LAB HEMATOLOGY METHOD 02/23/2025 8:52 AM EDT [facility] pCO2, Venous 44 37 - 52 mmHg LAB HEMATOLOGY METHOD 02/23/2025 8:52 AM EDT [facility] pO2, Venous 43(H) 25 - 40 mmHg LAB HEMATOLOGY METHOD 02/23/2025 8:52 AM EDT [facility] SO2, Measured, Venous 77 65 - 80 % LAB HEMATOLOGY METHOD 02/23/2025 8:52 AM EDT [facility] Base Excess, Venous 1.6 -2.0 - 3.0 mmol/L LAB HEMATOLOGY METHOD 02/23/2025 8:52 AM EDT [facility] Bicarbonate, Calculated, Venous 27(H) 22 - 26 mmol/L LAB HEMATOLOGY METHOD 02/23/2025 8:52 AM EDT [facility] Hematocrit, Whole Blood 27.4(L) 34.0 - 45.0 % LAB HEMATOLOGY METHOD 02/23/2025 8:52 AM EDT [facility] Sodium, Whole Blood 128(L) 136 - 145 mmol/L LAB HEMATOLOGY METHOD 02/23/2025 8:52 AM EDT [facility] Potassium, Whole Blood 4.7 3.6 - 4.9 mmol/L LAB HEMATOLOGY METHOD 02/23/2025 8:52 AM EDT [facility] Chloride, Whole Blood 93(L) 97 - 107 mmol/L LAB HEMATOLOGY METHOD 02/23/2025 8:52 AM EDT [facility] Glucose, Whole Blood 242(H) 74 - 99 mg/dL LAB HEMATOLOGY METHOD 02/23/2025 8:52 AM EDT [facility] Lactate, Venous, Whole Blood 1.1 0.5 - 2.2 mmol/L LAB HEMATOLOGY METHOD 02/23/2025 8:52 AM EDT [facility] Ionized Calcium, Whole Blood 4.6 4.6 - 5.1 mg/dL LAB HEMATOLOGY METHOD 02/23/2025 8:52 AM EDT [facility] Blood Venous blood specimen / Unknown Venipuncture / Unknown 02/23/2025 8:34 AM EDT 02/23/2025 8:50 AM EDT us Luda Ralph MD LAB BLOOD ORDERABLES Final R esult [facility] [address] [place] [address] * (ABNORMAL) POCT glucose meter (02/23/2025 5:13 AM EDT) POCT Glucose 255(H) 74 - 99 mg/dL 02/23/2025 5:14 AM EDT [facility] Comment:Accuracy of a glucos e result obtained from a capillary whole blood specimen relies upon adequate, non-compromised capillary blood flow. If the capillary glucose result is not consistent with the patient's clinical signs and symptoms, glucose testing should be repeated with either an arterial or venous sample on the glucometer or sent to the main labortory for testing. Comment 02/23/2025 5:14 AM EDT [facility] Screen Examiner ID Daniela Mcbride 02/23/2025 5:14 AM EDT [facility] Device ID [id number] 02/23/2025 5:14 AM EDT [facility] Specimen Type POC Capillary 02/23/2025 5:14 AM EDT [facility] Blood Capillary blood specimen / Unknown 02/23/2025 5:13 AM EDT 02/23/2025 5:14 AM EDT us Luda Ralph MD LAB POINT OF CARE TE ST DOCKED DEVICE UNSOLICITED RESULTS Final Result Performing Organization Address City/[facility] Co de Phone Number [facility] [address] [place] [address] * (ABNORMAL) POCT glucose meter (02/23/2025 2:11 AM EDT) [facility] POCT Glucose 224(H) 74 - 99 mg/dL 02/23/2025 2:12 AM EDT [facility] Comment:Accuracy of a glucos e result obtained from a capillary whole blood specimen relies upon adequate, non-compromised capillary blood flow. If the capillary glucose result is not consistent with the patient's clinical signs and symptoms, glucose testing should be repeated with either an arterial or venous sample on the glucometer or sent to the main labortory for testing. Comment 02/23/2025 2:12 AM EDT [facility] Screen Examiner ID Daniela Mcbride 02/23/2025 2:12 AM EDT [facility] Device ID [id number] 02/23/2025 2:12 AM EDT [facility] Specimen Type POC Capillary 02/23/2025 2:12 AM EDT [facility] Blood Capillary blood specimen / Unknown 02/23/2025 2:11 AM EDT 02/23/2025 2:12 AM EDT us Luda Ralph MD LAB POINT OF CARE TE ST DOCKED DEVICE UNSOLICITED RESULTS Final Result Performing Organization Address City/[facility] Co de Phone Number [facility] [address] [place] [address] * (ABNORMAL) Methicillin Resistant Staphylococcus aureus (MRSA) by PCR (02/23/2025 2:05 AM EDT) Methicillin Resistant Staphylococcus aureus (MRSA) by PCR Detected( A) Not Detected 02/23/2025 4:[address] [facility] Swab Both anterior nares / Unknown Non-blood Collection / Unknown 02/23/2025 2:05 AM EDT 02/23/2025 3:06 AM EDT Narrative [facility] - 02/23/2025 4:19 AM EDT This test is FDA approved for use with nares swab specimens using the eSwabs. This test is used for clinical purposes. It should not be regarded as investigational or for research. This laboratory is certified under the Clinical Laboratory improvement Amendments of 1988 (CLIA-88 as qualified to perform high complexity clinical laboratory testing. Luda Ralph MD LAB MICROBIOLOGY - GENERAL O RDERABLES Final Result [facility] [address] [place] [address] * (ABNORMAL) Nasopharyngeal Respiratory Panel (02/23/2025 2:05 AM EDT) Pathologist [facility] Human Rhinovirus/Ent erovirus PCR Result Detected( A) Not Detected 02/23/2025 5:[address] [facility] Swab Nasopharyngeal structure / Unknown Non-blood Collection / Unknown 02/23/2025 2:05 AM EDT 02/23/2025 3:06 AM EDT Narrative [facility] - 02/23/2025 5:07 AM EDT This assay can detect Adenovirus, Coronavirus, Human Metapneumovirus, Human Rhino/Enterovirus, Influenza A, Influenza A H1, Influenza A H1 2009, Influenza A H3, Influenza B, Parainfluenza Virus 1, Parainfluenza Virus 2, Parainfluenza Virus 3, Parainfluenza Virus 4, Respiratory Syncytial Virus A, Respiratory Syncytial Virus B, Chlamydia pneumoniae, and Mycoplasma pneumoniae. Note: This assay does NOT detect SARS/CoV, novel Coronavirus 2019-nCoV, Bordetella pertussis or Bordetella parapertussis. Nasopharyngeal Respiratory PCR Panel is performed using the [employer] ePlex instrument. This test is FDA approved for use with Nasopharyngeal swabs only. This test is used for clinical purposes. It should not be regarded as investigational or for research. The [facility] Clinical Microbiology Laboratory is certified under the Clinical Laboratory Improvement Amendments of 1988 (CLIA-88) as qualified to perform high complexity clinical laboratory testing. Luda Ralph MD LAB MICROBIOLOGY - GENERAL O RDERABLES Final Result Performing Organization Address [facility] Co de Phone Number [facility] [address] [place] [address] * Anti Xa Level Low Molecular Weight (02/23/2025 2:04 AM EDT) Anti Xa Level Low Molecular Weight Heparin 1.12 <2.00 IU/mL LAB COAGULATION METHOD 02/23/2025 2:44 AM EDT [facility] Blood Venous blood specimen / Unknown Venipuncture / Unknown 02/23/2025 2:04 AM EDT 02/23/2025 2:24 AM EDT Narrative [facility] - 02/23/2025 2:44 AM EDT Therapeutic Range: LMWH enoxaparin 1mg/kg/dose, 12hrs - peak (3-5 hours after dose): 0.5 - 1.0 IU/mL LMWH enoxaparin 1.5mg/kg/dose, 24hrs - peak (3-5 hours after dose): 1.0 - 2.0 IU/mL LMWH enoxaparin prophylaxis: Not established Luda Ralph MD LAB BLOOD ORDERABLES Final R esult Performing Organization Address [facility] Co de Phone Number [facility] [address] [place] [address] * (ABNORMAL) Troponin T, High Sensitivity, 2 Hour, Plasma (02/23/2025 2:04 AM EDT) Troponin T, High Sensitivity, 2 Hour 37(H) <14 ng/L 02/23/2025 2:52 AM EDT [facility] Troponin Delta Interpretation Not Calculated 02/23/2025 2:52 AM EDT [facility] Comment:Specimen not collect ed within acceptable timeframe. Delta will not be calculated. Blood Venous blood specimen / Unknown Venipuncture / Unknown 02/23/2025 2:04 AM EDT 02/23/2025 2:24 AM EDT Luda Ralph MD LAB BLOOD ORDERABLES Final R esult Performing Organization Address [facility]/ZIP Co de Phone Number [facility] [address] [place] [address] * (ABNORMAL) Sodium (02/23/2025 2:04 AM EDT) Sodium, Plasma 125(L) 136 - 145 mmol/L 02/23/2025 2:45 AM EDT [facility] Blood Venous blood specimen / Unknown Venipuncture / Unknown 02/23/2025 2:04 AM EDT 02/23/2025 2:24 AM EDT Luda Ralph MD LAB BLOOD ORDERABLES Final R esult Performing Organization Address City/[facility]/ZIP Co de Phone Number [facility] [address] [place] [address] * (ABNORMAL) Blood gas panel, venous (02/23/2025 2:04 AM EDT) pH, Venous 7.39 7.32 - 7.43 LAB HEMATOLOGY METHOD 02/23/2025 2:29 AM EDT [facility] pCO2, Venous 43 37 - 52 mmHg LAB HEMATOLOGY METHOD 02/23/2025 2:29 AM EDT [facility] pO2, Venous 71(H) 25 - 40 mmHg LAB HEMATOLOGY METHOD 02/23/2025 2:29 AM EDT [facility] SO2, Measured, Venous 94(H) 65 - 80 % LAB HEMATOLOGY METHOD 02/23/2025 2:29 AM EDT [facility] Base Excess, Venous 0.7 -2.0 - 3.0 mmol/L LAB HEMATOLOGY METHOD 02/23/2025 2:29 AM EDT [facility] Bicarbonate, Calculated, Venous 26 22 - 26 mmol/L LAB HEMATOLOGY METHOD 02/23/2025 2:29 AM EDT [facility] Hematocrit, Whole Blood 26.1(L) 34.0 - 45.0 % LAB HEMATOLOGY METHOD 02/23/2025 2:29 AM EDT [facility] Sodium, Whole Blood 127(L) 136 - 145 mmol/L LAB HEMATOLOGY METHOD 02/23/2025 2:29 AM EDT [facility] Potassium, Whole Blood 4.7 3.6 - 4.9 mmol/L LAB HEMATOLOGY METHOD 02/23/2025 2:29 AM EDT [facility] Chloride, Whole Blood 93(L) 97 - 107 mmol/L LAB HEMATOLOGY METHOD 02/23/2025 2:29 AM EDT [facility] Glucose, Whole Blood 221(H) 74 - 99 mg/dL LAB HEMATOLOGY METHOD 02/23/2025 2:29 AM EDT [facility] Lactate, Venous, Whole Blood 0.9 0.5 - 2.2 mmol/L LAB HEMATOLOGY METHOD 02/23/2025 2:29 AM EDT [facility] Ionized Calcium, Whole Blood 3.7(L) 4.6 - 5.1 mg/dL LAB HEMATOLOGY METHOD 02/23/2025 2:29 AM EDT [facility] Blood Venous blood specimen / Unknown Venipuncture / Unknown 02/23/2025 2:04 AM EDT 02/23/2025 2:25 AM EDT Luda Ralph MD LAB BLOOD ORDERABLES Final R esult Performing Organization Address City/State/[facility] Co de Phone Number [facility] [address] [place] [address] * Vancomycin, random (02/23/2025 12:05 AM EDT) Vancomycin, Random, Plasma <4.0 ug/mL 02/23/2025 12:44 AM EDT [facility] Blood Venous blood specimen / Unknown Venipuncture / Unknown 02/23/2025 12:05 AM EDT 02/23/2025 12:16 AM EDT Luda Ralph MD LAB BLOOD ORDERABLES Final R esult Performing Organization Address City/[facility]/ZIP Co de Phone Number [facility] [address] [place] [address] * (ABNORMAL) Sodium (02/23/2025 12:05 AM EDT) Pathologist [facility] Sodium, Plasma 127(L) 136 - 145 mmol/L 02/23/2025 12:44 AM EDT [facility] Blood Venous blood specimen / Unknown Venipuncture / Unknown 02/23/2025 12:05 AM EDT 02/23/2025 12:17 AM EDT us Luda Ralph MD LAB BLOOD ORDERABLES Final R esult Performing Organization Address [facility]/ZIP Co de Phone Number [facility] [address] [place] [address] * (ABNORMAL) Blood gas panel, venous (02/23/2025 12:05 AM EDT) pH, Venous 7.33 7.32 - 7.43 LAB HEMATOLOGY METHOD 02/23/2025 12:18 AM EDT [facility] pCO2, Venous 50 37 - 52 mmHg LAB HEMATOLOGY METHOD 02/23/2025 12:18 AM EDT [facility] pO2, Venous 60(H) 25 - 40 mmHg LAB HEMATOLOGY METHOD 02/23/2025 12:18 AM EDT [facility] SO2, Measured, Venous 89(H) 65 - 80 % LAB HEMATOLOGY METHOD 02/23/2025 12:18 AM EDT [facility] Base Excess, Venous 0.3 -2.0 - 3.0 mmol/L LAB HEMATOLOGY METHOD 02/23/2025 12:18 AM EDT [facility] Bicarbonate, Calculated, Venous 27(H) 22 - 26 mmol/L LAB HEMATOLOGY METHOD 02/23/2025 12:18 AM EDT [facility] Hematocrit, Whole Blood 28.9(L) 34.0 - 45.0 % LAB HEMATOLOGY METHOD 02/23/2025 12:18 AM EDT [facility] Sodium, Whole Blood 128(L) 136 - 145 mmol/L LAB HEMATOLOGY METHOD 02/23/2025 12:18 AM EDT [facility] Potassium, Whole Blood 4.7 3.6 - 4.9 mmol/L LAB HEMATOLOGY METHOD 02/23/2025 12:18 AM EDT [facility] Chloride, Whole Blood 93(L) 97 - 107 mmol/L LAB HEMATOLOGY METHOD 02/23/2025 12:18 AM EDT [facility] Glucose, Whole Blood 177(H) 74 - 99 mg/dL LAB HEMATOLOGY METHOD 02/23/2025 12:18 AM EDT [facility] Lactate, Venous, Whole Blood 1.7 0.5 - 2.2 mmol/L LAB HEMATOLOGY METHOD 02/23/2025 12:18 AM EDT [facility] Ionized Calcium, Whole Blood 4.4(L) 4.6 - 5.1 mg/dL LAB HEMATOLOGY METHOD 02/23/2025 12:18 AM EDT [facility] Blood Venous blood specimen / Unknown Venipuncture / Unknown 02/23/2025 12:05 AM EDT 02/23/2025 12:16 AM EDT Luda Ralph MD LAB BLOOD ORDERABLES Final R esult Performing Organization Address City/[facility]/ZIP Co de Phone Number [facility] [address] [place] [address] * (ABNORMAL) Troponin T, High Sensitivity, 0 Hour Plasma, Reflex to 2 Hour (02/23/2025 12:05 AM EDT) Troponin T, High Sensitivity, 0 Hour 40(H) <14 ng/L 02/23/2025 12:44 AM EDT [facility] Blood Venous blood specimen / Unknown Venipuncture / Unknown 02/23/2025 12:05 AM EDT 02/23/2025 12:17 AM EDT Luda Ralph MD LAB BLOOD ORDERABLES Final R esult [facility] [address] [place] [address] * (ABNORMAL) Phosphorus, Plasma (02/23/2025 12:05 AM EDT) Phosphorus, Plasma 2.4(L) 2.5 - 4.5 mg/dL 02/23/2025 12:44 AM EDT [facility] Blood Venous blood specimen / Unknown Venipuncture / Unknown 02/23/2025 12:05 AM EDT 02/23/2025 12:17 AM EDT Bobby Parra MD LAB BLOOD ORDERABLES Final R esult Performing Organization Address [facility]/ZIP Co de Phone Number [facility] [address] [place] [address] * (ABNORMAL) Magnesium, Plasma (02/23/2025 12:05 AM EDT) Magnesium, Plasma 2.5(H) 1.9 - 2.4 mg/dL 02/23/2025 12:44 AM EDT [facility] Blood Venous blood specimen / Unknown Venipuncture / Unknown 02/23/2025 12:05 AM EDT 02/23/2025 12:17 AM EDT Bobby Parra MD LAB BLOOD ORDERABLES Final R esult Performing Organization Address City/[facility] Co de Phone Number [facility] [address] [place] [address] * (ABNORMAL) Basic Metabolic Panel, Plasma (02/23/2025 12:05 AM EDT) Glucose, Plasma 180(H) 74 - 99 mg/dL 02/23/2025 12:44 AM EDT [facility] BUN, Plasma 42(H) 8 - 23 mg/dL 02/23/2025 12:44 AM EDT [facility] Creatinine, Plasma 2.26(H) 0.60 - 1.10 mg/dL 02/23/2025 12:44 AM EDT [facility] BUN/Creatinine Ratio 19 02/23/2025 12:44 AM EDT [facility] Sodium, Plasma 127(L) 136 - 145 mmol/L 02/23/2025 12:44 AM EDT [facility] Potassium, Plasma 4.9 3.6 - 4.9 mmol/L 02/23/2025 12:44 AM EDT [facility] Chloride, Plasma 91(L) 97 - 107 mmol/L 02/23/2025 12:44 AM EDT [facility] CO2, Plasma 23 22 - 29 mmol/L 02/23/2025 12:44 AM EDT [facility] Anion Gap 13 6 - 16 mmol/L 02/23/2025 12:44 AM EDT [facility] Total Calcium, Plasma 9.0 8.9 - 10.2 mg/dL 02/23/2025 12:44 AM EDT [facility] eGFRcr 23.5 mL/min/1.7 3m*2 02/23/2025 12:44 AM EDT [facility] Comment:Reported eGFRcr in m L/min/1.73m2 is based the CKD-EPI 2020 equation that does not use a race coefficient. Blood Venous blood specimen / Unknown Venipuncture / Unknown 02/23/2025 12:05 AM EDT 02/23/2025 12:17 AM EDT us Bobby Parra MD LAB BLOOD ORDERABLES Final R esult [facility] [address] [place] [address] * (ABNORMAL) POCT glucose meter (02/23/2025 12:04 AM EDT) POCT Glucose 189(H) 74 - 99 mg/dL 02/23/2025 12:06 AM EDT [facility] Comment:Accuracy of a glucos e result obtained from a capillary whole blood specimen relies upon adequate, non-compromised capillary blood flow. If the capillary glucose result is not consistent with the patient's clinical signs and symptoms, glucose testing should be repeated with either an arterial or venous sample on the glucometer or sent to the main labortory for testing. Comment 02/23/2025 12:06 AM EDT [facility] Screen Examiner ID Daniela Mcbride 02/23/2025 12:06 AM EDT [facility] Device ID [id number] 02/23/2025 12:06 AM EDT [facility] Specimen Type POC Capillary 02/23/2025 12:06 AM EDT [facility] Blood Capillary blood specimen / Unknown 02/23/2025 12:04 AM EDT 02/23/2025 12:06 AM EDT Luda Ralph MD LAB POINT OF CARE TE ST DOCKED DEVICE UNSOLICITED RESULTS Final Result Performing Organization Address [facility] Co de Phone Number [facility] [address] [place] [address] * (ABNORMAL) Quantitative BAL/PAL/Bronch Wash Culture and Gram StainProtected Alveolar Lavage (02/23/2025 12:00 AM EDT) Culture [id number] CFU/mL Mixed upper respiratory jesus(A) 02/24/2025 12:09 PM EDT [facility] Comment:The organism value f or this result has been updated. These results have been appended to the previously preliminary verified report. Gram Stain Result Numerous Polymorphonuclear leukocytes(A) 02/24/2025 12:09 PM EDT [facility] Gram Stain Result Numerous Gram positive cocci in pairs(A) 02/24/2025 12:09 PM EDT [facility] Gram Stain Result Moderate Gram positive cocci in clusters(A) 02/24/2025 12:09 PM EDT [facility] Gram Stain Result Moderate Gram positive rods(A) 02/24/2025 12:09 PM EDT [facility] Protected Alveolar Lavage (Protected Alveolar Lavage) 02/23/2025 12:00 AM EDT 02/23/2025 1:17 AM EDT Luda Ralph MD LAB MICROBIOLOGY - GENERAL O RDERABLES Final Result Performing Organization Address City/[facility]/ZIP Co de Phone Number [facility] [address] [place] [address] * ECG Adult (02/22/2025 11:57 PM EDT) EKG DIAGNOSIS CLASS Abnormal MUSE ECG Ventricular Rate 81 BPM MUSE ECG Atrial Rate 81 BPM MUSE ECG PA Interval 204 ms MUSE ECG QRSD Interval 136 ms MUSE ECG QT Interval 428 ms MUSE ECG QTC Interval 497 ms MUSE ECG P Nabb 58 degrees MUSE ECG R Nabb -72 degrees MUSE ECG T Wave Nabb 47 degrees MUSE ECG Diagnosis Normal sinus rhythm MUSE ECG Diagnosis Left axis deviation MUSE ECG Diagnosis Right bundle branch block MUSE ECG Diagnosis Low voltage chest leads MUSE ECG Diagnosis Abnormal ECG MUSE ECG Diagnosis Compared to last ECG MUSE ECG Diagnosis No significant change was found MUSE ECG Diagnosis Confirmed by Carson Multani ([id number]) on 02/23/2025 11:11:42 AM MUSE ECG 02/22/2025 11:5 7 PM EDT 02/23/2025 11:11 AM EDT Luda Ralph MD ECG ORDERABLES Final Result Performing Organization Address [facility] Co de Phone Number MUSE ECG * (ABNORMAL) Procalcitonin (02/22/2025 10:03 PM EDT) Procalcitonin, Plasma 0.21(H) <0.09 ng/mL 02/22/2025 10:48 PM EDT [facility] Blood Venous blood specimen / Unknown Venipuncture / Unknown 02/22/2025 10:03 PM EDT 02/22/2025 10:11 PM EDT Narrative [facility] - 02/22/2025 10:48 PM EDT Procalcitonin concentrations in healthy individuals are <0.09 ng/mL. Published data support the following interpretive risk assessment: An elevated procalcitonin result does not always indicate sepsis. Various non-infectious conditions are known to increase procalcitonin. Results should be considered in the context of clinical symptoms and other laboratory tests. Procalcitonin >2.0 ng/mL: Concentrations >2.0 ng/mL on the first day of ICU admission are associated with a higher risk of progression to severe sepsis and/or septic shock. The change in PCT over time may help predict 28 day mortality risk. Please consult [email or web address] for more information. Test performed at [facility]. Luda Ralph MD LAB BLOOD ORDERABLES Final R esult Performing Organization Address City/[facility]/ZIP Co de Phone Number [facility] [address] [place] [address] * (ABNORMAL) N-Terminal Probnp (02/22/2025 10:03 PM EDT) Pathologist [facility] N-Terminal, PROBNP, Plasma 1,542(H) 0 - 899 pg/mL 02/22/2025 10:[address] [facility] Blood Venous blood specimen / Unknown Venipuncture / Unknown 02/22/2025 10:03 PM EDT 02/22/2025 10:11 PM EDT Bobby Parra MD LAB BLOOD ORDERABLES Final R esult Performing Organization Address [facility]/[place] [address] * (ABNORMAL) Multi Drug Resistance Test (02/22/2025 10:02 PM EDT) [facility] Culture Methicillin-Resist ant Staphylococcus aureus(AA) 02/24/2025 6:[address] [facility] Swab (Nares and Samantha Rectal) Non-blood Collection / Unknown 02/22/2025 10:02 PM EDT 02/22/2025 10:16 PM EDT Narrative [facility] - 02/24/2025 6:58 AM EDT This test was developed and its performance characteristics determined by the [facility] Microbiology Laboratory. Although the media is FDA-approved, it is not FDA-approved for all specimen types submitted. The FDA has determined that such clearance or approval is not necessary. This test is used for surveillance purposes. It should not be regarded as investigational or for research. The [facility] Microbiology Laboratory is certified under the Clinical Laboratory Improvement Amendments of 1988 (CLIA-88) as qualified to perform high complexity clinical laboratory testing. Bobby Parra MD LAB MICROBIOLOGY - GENERAL [place] [address] * Sahara auris Surveillance by PCR (02/22/2025 10:02 PM EDT) Sahara auris PCR Result Not Detected Not Detected 02/24/2025 7:03 AM EDT [facility] Swab (Axilla and Groin) Non-blood Collection / Unknown 02/22/2025 10:02 PM EDT 02/22/2025 10:16 PM EDT Narrative [facility] - 02/24/2025 7:03 AM EDT This PCR assay was developed and its performance characteristics determined by [facility] as appropriate for clinical purposes. This assay has not been cleared or approved by the FDA, but is performed in a CLIA regulated laboratory that is qualified to perform high-complexity testing. Bobby Parra MD LAB MICROBIOLOGY - GENERAL O RDERABLES Final Result Performing Organization Address City/[facility]/ZIP Co de Phone Number [facility] [address] [place] [address] * (ABNORMAL) Fentanyl Urine Confirm (02/22/2025 10:01 PM EDT) Fentanyl 1(H) <1 ng/mL 02/24/2025 9:18 AM EDT [facility] Norfentanyl 2(H) <2 ng/mL 02/24/2025 9:18 AM EDT [facility] Urine Urine specimen obtained by clean catch procedure / Unknown Non-blood Collection / Unknown 02/22/2025 10:01 PM EDT 02/22/2025 10:11 PM EDT Narrative [facility] - 02/24/2025 9:18 AM EDT Drug analysis is confirmed by LC-MS/MS (LC Tandem Mass Spectrometry) on Urine specimens. This test was developed and its performance characteristics determined by [facility]. It has not been cleared or approved by the FDA. The laboratory is regulated under CLIA as qualified to perform high-complexity testing. This test is used for clinical purposes. Testing is performed at the [facility]. us Ldua Morton MD LAB URINE ORDERABLES Final Result Performing Organization Address City/[facility]/ZIP Co de Phone Number [facility] [address] [place] [address] * SEND HECTOR MESSAGE (02/22/2025 10:01 PM EDT) Urine Urine specimen obtained by clean catch procedure / Unknown Non-blood Collection / Unknown 02/22/2025 10:01 PM EDT 02/22/2025 10:14 PM EDT Bobby Parra MD LAB URINE ORDERABLES Final R esult Performing Organization Address [facility]/ZIP Co de Phone Number [facility] [address] [place] [address] * (ABNORMAL) Urine Culture (02/22/2025 10:01 PM EDT) Culture 100 CFU/mL Normal Urogenital Jesus(A) 02/24/2025 6:[address] [facility] Urine Urine specimen obtained by clean catch procedure / Unknown Non-blood Collection / Unknown 02/22/2025 10:01 PM EDT 02/22/2025 10:14 PM EDT Bobby Parra MD LAB MICROBIOLOGY - GENERAL O RDERABLES Final Result Performing Organization Address City/[facility] Co de Phone Number [facility] [address] [place] [address] * Urinalysis Microscopic Examination (02/22/2025 10:01 PM EDT) Urine Urine specimen obtained by clean catch procedure / Unknown Non-blood Collection / Unknown 02/22/2025 10:01 PM EDT 02/22/2025 10:11 PM EDT Bobby Parra MD LAB URINE ORDERABLES Final R esult Performing Organization Address City/[facility]/ZIP Co de Phone Number [facility] [address] [place] [address] * Urine Salmon Panel (02/22/2025 10:01 PM EDT) Extra Sent for Culture 02/23/2025 12:[address] [facility] Urine Urine specimen obtained by clean catch procedure / Unknown Non-blood Collection / Unknown 02/22/2025 10:01 PM EDT 02/22/2025 10:14 PM EDT us Bobby Parra MD LAB URINE ORDERABLES Final R esult [facility] [address] [place] [address] * (ABNORMAL) Urinalysis with reflex microscopic (Culture NOT Included) (02/22/2025 10:01 PM EDT) Color, Urine Red LAB URINALYSIS - AUTOMATED METHOD 02/22/2025 11:13 PM EDT [facility] Clarity, Urine Cloudy LAB URINALYSIS - AUTOMATED METHOD 02/22/2025 11:13 PM EDT [facility] Spec [place], Urine 1.010 1.005 - 1.030 LAB URINALYSIS - AUTOMATED METHOD 02/22/2025 11:13 PM EDT [facility] pH, Urine 6.5 5.0 - 8.0 LAB URINALYSIS - AUTOMATED METHOD 02/22/2025 11:13 PM EDT [facility] Protein, Urine >=300(A) Negative mg/dL LAB URINALYSIS - AUTOMATED METHOD 02/22/2025 11:13 PM EDT [facility] Glucose, Urine Negative Negative mg/dL LAB URINALYSIS - AUTOMATED METHOD 02/22/2025 11:13 PM EDT [facility] Ketones, Urine Negative Negative mg/dL LAB URINALYSIS - AUTOMATED METHOD 02/22/2025 11:13 PM EDT [facility] Blood, Urine Large(A) Negative LAB URINALYSIS - AUTOMATED METHOD 02/22/2025 11:13 PM EDT [facility] Bilirubin, Urine Small(A) Negative LAB URINALYSIS - AUTOMATED METHOD 02/22/2025 11:13 PM EDT [facility] Urobilinogen, Urine 0.2 0.2 to 1.0 mg/dL LAB URINALYSIS - AUTOMATED METHOD 02/22/2025 11:13 PM EDT [facility] Leukocytes, Urine Large(A) Negative LAB URINALYSIS - AUTOMATED METHOD 02/22/2025 11:13 PM EDT [facility] Nitrite, Urine Negative Negative LAB URINALYSIS - AUTOMATED METHOD 02/22/2025 11:13 PM EDT [facility] RBC, Urine >50(A) 0 to 3 /HPF LAB URINALYSIS - AUTOMATED METHOD 02/22/2025 11:13 PM EDT [facility] WBC, Urine >50(A) 0 to 5 /HPF LAB URINALYSIS - AUTOMATED METHOD 02/22/2025 11:13 PM EDT [facility] Squamous Epithelial Cells 0 - 2 0 to 5 /HPF LAB URINALYSIS - AUTOMATED METHOD 02/22/2025 11:13 PM EDT [facility] Hyaline Casts 0 - 2 0 to 5 /LPF LAB URINALYSIS - AUTOMATED METHOD 02/22/2025 11:13 PM EDT [facility] Bacteria, Urine Negative Negative LAB URINALYSIS - AUTOMATED METHOD 02/22/2025 11:13 PM EDT [facility] Urine Urine specimen obtained by clean catch procedure / Unknown Non-blood Collection / Unknown 02/22/2025 10:01 PM EDT 02/22/2025 10:11 PM EDT Narrative [facility] - 02/22/2025 11:13 PM EDT Urinalysis dipstick results may be inaccurate due to specimen color or an interfering substance in the specimen. Bobby Parra MD LAB URINE ORDERABLES Final R esult [facility] [address] [place] [address] * Drug abuse screen (02/22/2025 10:01 PM EDT) Amphetamine Screen Urine Negative Cutoff: 500 ng/mL 02/23/2025 12:22 AM EDT [facility] Benzodiazepines Screen Urine Negative Cutoff: 200 ng/mL 02/23/2025 12:22 AM EDT [facility] Cannabinoid Screen Urine Negative Cutoff: 50 ng/mL 02/23/2025 12:22 AM EDT [facility] Cocaine Screen Urine Negative Cutoff: 300 ng/mL 02/23/2025 12:22 AM EDT [facility] Barbiturate Screen Urine Negative Cutoff: 200 ng/mL 02/23/2025 12:22 AM EDT [facility] Opiate Screen Urine Negative Cutoff: 300 ng/mL 02/23/2025 12:22 AM EDT [facility] Methadone Screen Urine Negative Cutoff: 300 ng/mL 02/23/2025 12:22 AM EDT [facility] Buprenorphine Screen Urine Negative Cutoff: 10 ng/mL 02/23/2025 12:22 AM EDT [facility] Fentanyl Screen Urine Presumptive positive. Confirmation by LC-MS/MS to follow. Cutoff: 1 ng/mL 02/23/2025 12:22 AM EDT [facility] Oxycodone Screen Urine Negative Cutoff: 100 ng/mL 02/23/2025 12:22 AM EDT [facility] Urine Urine specimen obtained by clean catch procedure / Unknown Non-blood Collection / Unknown 02/22/2025 10:01 PM EDT 02/22/2025 10:11 PM EDT Luda Morton MD LAB URINE ORDERABLES Final Result [facility] [address] [place] [address] * (ABNORMAL) POCT glucose meter (02/22/2025 9:38 PM EDT) [facility] POCT Glucose 156(H) 74 - 99 mg/dL 02/22/2025 9:40 PM EDT [facility] Comment:Accuracy of a glucos e result obtained from a capillary whole blood specimen relies upon adequate, non-compromised capillary blood flow. If the capillary glucose result is not consistent with the patient's clinical signs and symptoms, glucose testing should be repeated with either an arterial or venous sample on the glucometer or sent to the main labortory for testing. Comment 02/22/2025 9:40 PM EDT [facility] Screen Examiner ID Shiloh Friedman 02/23/20 9:40 PM EDT [facility] Device ID [id number] 02/22/2025 9:40 PM EDT [facility] Specimen Type POC Capillary 02/22/2025 9:40 PM EDT [facility] Blood Capillary blood specimen / Unknown 02/22/2025 9:38 PM EDT 02/22/2025 9:40 PM EDT us Luda Ralph MD LAB POINT OF CARE TE ST DOCKED DEVICE UNSOLICITED RESULTS Final Result [facility] [address] [place] [address] * (ABNORMAL) POCT arterial blood gas gem (02/22/2025 9:05 PM EDT) pH, Arterial 7.45(H) 7.31 - 7.42 02/22/2025 9:06 PM EDT [facility] pCO2, Arterial 37 35 - 48 mm Hg 02/22/2025 9:06 PM EDT [facility] pO2, Arterial 86 >80 mm Hg 02/22/2025 9:06 PM EDT [facility] SO2, Arterial 98 94 - 98 % 02/22/2025 9:06 PM EDT [facility] FIO2 60.0 % 02/22/2025 9:06 PM EDT [facility] Base Excess, Arterial 1.7 -2 - 3 mmol/L 02/22/2025 9:06 PM EDT [facility] HCO3, Arterial 25.7 22 - 26 mmol/L 02/22/2025 9:06 PM EDT [facility] Total Hemoglobin, Arterial, Whole Blood 9.1(L) 11.2 - 15.7 g/dL 02/22/2025 9:06 PM EDT [facility] Hematocrit, Arterial 27.0(L) 34.0 - 45.0 % 02/22/2025 9:06 PM EDT [facility] Sodium, Arterial 125(L) 136 - 145 mmol/L 02/22/2025 9:06 PM EDT [facility] Potassium, Arterial 4.9 3.6 - 4.9 mmol/L 02/22/2025 9:06 PM EDT [facility] Comment:Hemolyzed, result ma y be falsely increased. Chloride, Whole Blood 95(L) 97 - 107 mmol/L 02/22/2025 9:06 PM EDT [facility] Glucose, Arterial 116(H) 74 - 99 mg/dL 02/22/2025 9:06 PM EDT [facility] Ionized Calcium, Arterial 4.8 4.6 - 5.1 mg/dL 02/22/2025 9:06 PM EDT [facility] Lactate, Arterial 0.8 0.5 - 1.6 mmol/L 02/22/2025 9:06 PM EDT [facility] Body Temperature 37.0 Celsius 02/22/2025 9:06 PM EDT [facility] pH, Temp Corrected, Arterial 7.45(H) 7.31 - 7.42 02/22/2025 9:06 PM EDT [facility] pCO2, Temp Corrected, Arterial 37 35 - 48 mm Hg 02/22/2025 9:06 PM EDT [facility] pO2, Temp Corrected, Arterial 86 >80 mm Hg 02/22/2025 9:06 PM EDT [facility] Screen Examiner ID Slim Morton 02/22/2025 9:06 PM EDT [facility] Blood, Arterial Whole blood specimen / Unknown 02/22/2025 9:05 PM EDT 02/22/2025 9:06 PM EDT us Luda Ralph MD LAB POINT OF CARE TE ST DOCKED DEVICE UNSOLICITED RESULTS Final Result Performing Organization Address City/[facility]/ZIP Co de Phone Number [facility] [address] [place] [address] * Blood Culture (Aerobic/Anaerobet Set) (02/22/2025 8:55 PM EDT) [facility] Culture No growth at day 5 02/27/2025 10:01 PM EDT [facility] Blood Structure of right hand / Unknown Venipuncture / Unknown 02/22/2025 8:55 PM EDT 02/22/2025 9:29 PM EDT Narrative [facility] - 02/27/2025 10:01 PM EDT Low blood volume submitted, results may be compromised us Luda Morton MD LAB MICROBIOLOGY - GENERAL ORDERABLES Final Result [facility] [address] [place] [address] * Ionized calcium, serum (02/22/2025 8:36 PM EDT) Pathologist [facility] Ionized Calcium, Serum 4.8 4.6 - 5.3 mg/dL LAB HEMATOLOGY METHOD 02/22/2025 9:42 PM EDT [facility] Blood Venous blood specimen / Unknown Venipuncture / Unknown 02/22/2025 8:36 PM EDT 02/22/2025 8:53 PM EDT us Bobby Parra MD LAB BLOOD ORDERABLES Final R esult [facility] [address] [place] [address] * (ABNORMAL) CBC W/O Differential (02/22/2025 8:36 PM EDT) [facility] WBC Count 7.98 3.70 - 10.30 10*3/uL LAB HEMATOLOGY METHOD 02/22/2025 8:44 PM EDT [facility] RBC Count 3.52(L) 3.90 - 5.20 10*6/uL LAB HEMATOLOGY METHOD 02/22/2025 8:44 PM EDT [facility] HGB 9.2(L) 11.2 - 15.7 g/dL LAB HEMATOLOGY METHOD 02/22/2025 8:44 PM EDT [facility] HCT 28.5(L) 34.0 - 45.0 % LAB HEMATOLOGY METHOD 02/22/2025 8:44 PM EDT [facility] Platelet Count 329 155 - 369 10*3/uL LAB HEMATOLOGY METHOD 02/22/2025 8:44 PM EDT [facility] MCV 81 79 - 98 fL LAB HEMATOLOGY METHOD 02/22/2025 8:44 PM EDT [facility] MCH 26.1 26.0 - 32.0 pg LAB HEMATOLOGY METHOD 02/22/2025 8:44 PM EDT [facility] MCHC 32.3 30.7 - 35.5 g/dL LAB HEMATOLOGY METHOD 02/22/2025 8:44 PM EDT [facility] RDW 14.6(H) 11.5 - 14.5 % LAB HEMATOLOGY METHOD 02/22/2025 8:44 PM EDT [facility] MPV 9.5 8.8 - 12.5 fL LAB HEMATOLOGY METHOD 02/22/2025 8:44 PM EDT [facility] nRBC 0.0 <=0.0 per 100 WBCs LAB HEMATOLOGY METHOD 02/22/2025 8:44 PM EDT [facility] Blood Venous blood specimen / Unknown Venipuncture / Unknown 02/22/2025 8:36 PM EDT 02/22/2025 8:40 PM EDT us Bobby Parra MD LAB BLOOD ORDERABLES Final R esult [facility] [address] [place] [address] * (ABNORMAL) Blood gas, venous (02/22/2025 8:13 PM EDT) pH, Venous 7.33 7.32 - 7.43 LAB HEMATOLOGY METHOD 02/22/2025 8:17 PM EDT [facility] pCO2, Venous 49 37 - 52 mmHg LAB HEMATOLOGY METHOD 02/22/2025 8:17 PM EDT [facility] pO2, Venous 27 25 - 40 mmHg LAB HEMATOLOGY METHOD 02/22/2025 8:17 PM EDT [facility] SO2, Measured, Venous 49(L) 65 - 80 % LAB HEMATOLOGY METHOD 02/22/2025 8:17 PM EDT [facility] Base Excess, Venous -0.1 -2.0 - 3.0 mmol/L LAB HEMATOLOGY METHOD 02/22/2025 8:17 PM EDT [facility] Bicarbonate, Calculated, Venous 26 22 - 26 mmol/L LAB HEMATOLOGY METHOD 02/22/2025 8:17 PM EDT [facility] Hematocrit, Whole Blood 27.0(L) 34.0 - 45.0 % LAB HEMATOLOGY METHOD 02/22/2025 8:17 PM EDT [facility] Sodium, Whole Blood 128(L) 136 - 145 mmol/L LAB HEMATOLOGY METHOD 02/22/2025 8:17 PM EDT [facility] Potassium, Whole Blood 5.3(H) 3.6 - 4.9 mmol/L LAB HEMATOLOGY METHOD 02/22/2025 8:17 PM EDT [facility] Chloride, Whole Blood 96(L) 97 - 107 mmol/L LAB HEMATOLOGY METHOD 02/22/2025 8:17 PM EDT [facility] Glucose, Whole Blood 106(H) 74 - 99 mg/dL LAB HEMATOLOGY METHOD 02/22/2025 8:17 PM EDT [facility] Lactate, Venous, Whole Blood 1.0 0.5 - 2.2 mmol/L LAB HEMATOLOGY METHOD 02/22/2025 8:17 PM EDT [facility] Ionized Calcium, Whole Blood 4.3(L) 4.6 - 5.1 mg/dL LAB HEMATOLOGY METHOD 02/22/2025 8:17 PM EDT [facility] Blood Venous blood specimen / Unknown Venipuncture / Unknown 02/22/2025 8:13 PM EDT 02/22/2025 8:16 PM EDT us Luda Morton MD LAB BLOOD ORDERABLES Final Result Performing Organization Address City/[facility]/ZIP Co de Phone Number [facility] [address] [place] [address] * EKG now - STAT (adult) (02/22/2025 8:10 PM EDT) EKG DIAGNOSIS CLASS Abnormal MUSE ECG Ventricular Rate 74 BPM MUSE ECG Atrial Rate 74 BPM MUSE ECG PA Interval 200 ms MUSE ECG QRSD Interval 136 ms MUSE ECG QT Interval 434 ms MUSE ECG QTC Interval 481 ms MUSE ECG P Nabb 59 degrees MUSE ECG R Nabb -84 degrees MUSE ECG T Wave Nabb 48 degrees MUSE ECG Diagnosis Normal sinus rhythm MUSE ECG Diagnosis Left axis deviation MUSE ECG Diagnosis Right bundle branch block MUSE ECG Diagnosis Abnormal ECG MUSE ECG Diagnosis Compared to last ECG MUSE ECG Diagnosis No significant change was found MUSE ECG Diagnosis Confirmed by Carson Multani ([id number]) on 02/23/2025 10:45:41 AM MUSE ECG 02/22/2025 8:10 PM EDT 02/23/2025 10:45 AM EDT us Luda Morton MD ECG ORDERABLES Final Resul t MUSE ECG * XR Chest 1 View (02/22/2025 7:05 PM EDT) Anatomical Region Laterality Modality Chest Digital Radiogra phy Impressions 02/22/2025 7:46 PM EDT Patient is intubated, endotracheal tube terminates approximately 3.9 cm superior to andressa. Cardiomegaly and pulmonary vascular congestion with mild bibasilar atelectasis. No pneumothorax. No acute osseous abnormality. Enteric tube terminates in the stomach. Nonspecific bowel gas pattern about the upper abdomen. CRITICAL RESULT: No. COMMUNICATION: Per this written report. Drafted by Jin Yoder MD on 02/22/2025 7:44 PM Final report signed by Jin Yoder MD on 02/22/2025 7:46 PM Narrative 02/22/2025 7:46 PM EDT CLINICAL INDICATION: ETT TECHNIQUE: XR CHEST 1 VIEW, XR ABDOMEN 1 VIEW COMPARISON: Chest radiograph 08/19/2024. Outside chest radiograph 01/23/2025. Outside CT chest abdomen pelvis 02/22/2025. FINDINGS: Patient is intubated, endotracheal tube terminates approximately 3.9 cm superior to andressa. Cardiomegaly and pulmonary vascular congestion with mild bibasilar atelectasis. No pneumothorax. No acute osseous abnormality. Enteric tube terminates in the stomach. Nonspecific bowel gas pattern about the upper abdomen. Procedure Note Jin Yoder MD - 02/22/2025 CLINICAL INDICATION: ETT TECHNIQUE: XR CHEST 1 VIEW, XR ABDOMEN 1 VIEW COMPARISON: Chest radiograph 08/19/2024. Outside chest radiograph 01/23/2025. Outside CTchest abdomen pelvis 02/22/2025. FINDINGS: Patient is intubated, endotracheal tube terminates approximately 3.9 cmsuperior to andressa. Cardiomegaly and pulmonary vascular congestion with mild bibasilaratelectasis. No pneumothorax. No acute osseous abnormality. Enteric tube terminates in the stomach. Nonspecific bowel gas patternabout the upper abdomen. IMPRESSION: Patient is intubated, endotracheal tube terminates approximately 3.9 cmsuperior to andressa. Cardiomegaly and pulmonary vascular congestion with mild bibasilaratelectasis. No pneumothorax. No acute osseous abnormality. Enteric tube terminates in the stomach. Nonspecific bowel gas patternabout the upper abdomen. CRITICAL RESULT: No. COMMUNICATION: Per this written report. Drafted by Jin Yoder MD on 02/22/2025 7:44 PM Final report signed by Jin Yoder MD on 02/22/2025 7:46 PM us Luda Morton MD IMG XR PROCEDURES Final Res ult * XR Abdomen 1 View (02/22/2025 7:05 PM EDT) Anatomical Region Laterality Modality Body Digital Radiogra phy Impressions 02/22/2025 7:46 PM EDT Patient is intubated, endotracheal tube terminates approximately 3.9 cm superior to andressa. Cardiomegaly and pulmonary vascular congestion with mild bibasilar atelectasis. No pneumothorax. No acute osseous abnormality. Enteric tube terminates in the stomach. Nonspecific bowel gas pattern about the upper abdomen. CRITICAL RESULT: No. COMMUNICATION: Per this written report. Drafted by Jin Yoder MD on 02/22/2025 7:44 PM Final report signed by Jin Yoder MD on 02/22/2025 7:46 PM Narrative 02/22/2025 7:46 PM EDT CLINICAL INDICATION: ETT TECHNIQUE: XR CHEST 1 VIEW, XR ABDOMEN 1 VIEW COMPARISON: Chest radiograph 08/19/2024. Outside chest radiograph 01/23/2025. Outside CT chest abdomen pelvis 02/22/2025. FINDINGS: Patient is intubated, endotracheal tube terminates approximately 3.9 cm superior to andressa. Cardiomegaly and pulmonary vascular congestion with mild bibasilar atelectasis. No pneumothorax. No acute osseous abnormality. Enteric tube terminates in the stomach. Nonspecific bowel gas pattern about the upper abdomen. Procedure Note Jin Yoder MD - 02/22/2025 CLINICAL INDICATION: ETT TECHNIQUE: XR CHEST 1 VIEW, XR ABDOMEN 1 VIEW COMPARISON: Chest radiograph 08/19/2024. Outside chest radiograph 01/23/2025. Outside CTchest abdomen pelvis 02/22/2025. FINDINGS: Patient is intubated, endotracheal tube terminates approximately 3.9 cmsuperior to andressa. Cardiomegaly and pulmonary vascular congestion with mild bibasilaratelectasis. No pneumothorax. No acute osseous abnormality. Enteric tube terminates in the stomach. Nonspecific bowel gas patternabout the upper abdomen. IMPRESSION: Patient is intubated, endotracheal tube terminates approximately 3.9 cmsuperior to andressa. Cardiomegaly and pulmonary vascular congestion with mild bibasilaratelectasis. No pneumothorax. No acute osseous abnormality. Enteric tube terminates in the stomach. Nonspecific bowel gas patternabout the upper abdomen. CRITICAL RESULT: No. COMMUNICATION: Per this written report. Drafted by Jin Yoder MD on 02/22/2025 7:44 PM Final report signed by Jin Yoder MD on 02/22/2025 7:46 PM Luda Morton MD IMG XR PROCEDURES Final Res ult * (ABNORMAL) Hemoglobin A1c (02/22/2025 6:41 PM EDT) Hemoglobin A1c 9.2(H) <5.7 % 02/23/2025 1:40 PM EDT [facility] Blood Venous blood specimen / Unknown Venipuncture / Unknown 02/22/2025 6:41 PM EDT 02/22/2025 6:47 PM EDT Narrative [facility] - 02/23/2025 1:40 PM EDT HA1C Interpretive Data: Diagnosis of Diabetes: Diabetic > or = 6.5% Pre-diabetic 5.7 to 6.4% Non-diabetic < or = 5.6% Glycemic Targets for Type I and Type II Diabetics: Non- Adults <7.0% Adults <6.0% Children and Adolescents <7.5% Source: [place] [employer]. Standards of medical care in diabetes,2017. Diabetes Care.2017:40 (suppl 1):S1-S135. Bobby Parra MD LAB BLOOD ORDERABLES Final R esult [facility] [address] [place] [address] * (ABNORMAL) BNP (02/22/2025 6:41 PM EDT) N-Terminal, PROBNP, Plasma 1,679(H) 0 - 899 pg/mL 02/22/2025 8:39 PM EDT [facility] Blood Venous blood specimen / Unknown Venipuncture / Unknown 02/22/2025 6:41 PM EDT 02/22/2025 6:47 PM EDT Luda Morton MD LAB [place] [address] * Free T4, Plasma (02/22/2025 6:41 PM EDT) Free T4, Plasma 1.3 0.8 - 1.7 ng/dL 02/22/2025 7:24 PM EDT [facility] Blood Venous blood specimen / Unknown Venipuncture / Unknown 02/22/2025 6:41 PM EDT 02/22/2025 6:47 PM EDT Luda Morton MD LAB BLOOD ORDERABLES Final Result Performing Organization Address City/[facility]/[place] [address] * Thyroid Stimulating Hormone, Plasma (02/22/2025 6:41 PM EDT) Thyroid Stimulating Hormone, Plasma 1.03 0.40 - 4.20 uIU/mL 02/22/2025 7:24 PM EDT [facility] Blood Venous blood specimen / Unknown Venipuncture / Unknown 02/22/2025 6:41 PM EDT 02/22/2025 6:47 PM EDT us Luda Morton MD LAB BLOOD ORDERABLES Final Result Performing Organization Address City/[facility]/[place] [address] * Ethyl Alcohol Plasma (02/22/2025 6:41 PM EDT) Ethanol Plasma <10 <10 mg/dL 02/22/2025 8:13 PM EDT [facility] Blood Venous blood specimen / Unknown Venipuncture / Unknown 02/22/2025 6:41 PM EDT 02/22/2025 8:00 PM EDT Narrative [facility] - 02/22/2025 8:13 PM EDT Enzymatic Assay: Performed on [employer]. us Luda Morton MD LAB BLOOD ORDERABLES Final Result [facility] [address] [place] [address] * (ABNORMAL) CBC w/diff (02/22/2025 6:41 PM EDT) WBC Count 9.69 3.70 - 10.30 10*3/uL LAB HEMATOLOGY METHOD 02/22/2025 6:54 PM EDT [facility] RBC Count 3.62(L) 3.90 - 5.20 10*6/uL LAB HEMATOLOGY METHOD 02/22/2025 6:54 PM EDT [facility] HGB 9.7(L) 11.2 - 15.7 g/dL LAB HEMATOLOGY METHOD 02/22/2025 6:54 PM EDT [facility] [facility] HCT 29.8(L) 34.0 - 45.0 % LAB HEMATOLOGY METHOD 02/22/2025 6:54 PM EDT [facility] Platelet Count 306 155 - 369 10*3/uL LAB HEMATOLOGY METHOD 02/22/2025 6:54 PM EDT [facility] MCV 82 79 - 98 fL LAB HEMATOLOGY METHOD 02/22/2025 6:54 PM EDT [facility] MCH 26.8 26.0 - 32.0 pg LAB HEMATOLOGY METHOD 02/22/2025 6:54 PM EDT [facility] MCHC 32.6 30.7 - 35.5 g/dL LAB HEMATOLOGY METHOD 02/22/2025 6:54 PM EDT [facility] RDW 14.6(H) 11.5 - 14.5 % LAB HEMATOLOGY METHOD 02/22/2025 6:54 PM EDT [facility] MPV 9.4 8.8 - 12.5 fL LAB HEMATOLOGY METHOD 02/22/2025 6:54 PM EDT [facility] nRBC 0.0 <=0.0 per 100 WBCs LAB HEMATOLOGY METHOD 02/22/2025 6:54 PM EDT [facility] Differential Type Automated LAB HEMATOLOGY METHOD 02/22/2025 6:54 PM EDT [facility] Neutrophils % 69 % LAB HEMATOLOGY METHOD 02/22/2025 6:54 PM EDT [facility] Lymphocytes % 13 % LAB HEMATOLOGY METHOD 02/22/2025 6:54 PM EDT [facility] Monocytes % 13 % LAB HEMATOLOGY METHOD 02/22/2025 6:54 PM EDT [facility] Eosinophils % 4 % LAB HEMATOLOGY METHOD 02/22/2025 6:54 PM EDT [facility] Basophils % 0 % LAB HEMATOLOGY METHOD 02/22/2025 6:54 PM EDT [facility] Immature Granulocytes % 1 % LAB HEMATOLOGY METHOD 02/22/2025 6:54 PM EDT [facility] Neutrophils Absolute 6.66(H) 1.60 - 6.10 10*3/uL LAB HEMATOLOGY METHOD 02/22/2025 6:54 PM EDT [facility] Lymphocytes Absolute 1.29 1.20 - 3.90 10*3/uL LAB HEMATOLOGY METHOD 02/22/2025 6:54 PM EDT [facility] Monocytes Absolute 1.27(H) 0.30 - 0.90 10*3/uL LAB HEMATOLOGY METHOD 02/22/2025 6:54 PM EDT [facility] Eosinophils Absolute 0.38 0.00 - 0.50 10*3/uL LAB HEMATOLOGY METHOD 02/22/2025 6:54 PM EDT [facility] Basophils Absolute 0.03 0.00 - 0.10 10*3/uL LAB HEMATOLOGY METHOD 02/22/2025 6:54 PM EDT [facility] Immature Granulocytes Absolute 0.06 0.00 - 0.06 10*3/uL LAB HEMATOLOGY METHOD 02/22/2025 6:54 PM EDT [facility] Blood Venous blood specimen / Unknown Venipuncture / Unknown 02/22/2025 6:41 PM EDT 02/22/2025 6:47 PM EDT [facility] - 02/22/2025 6:54 PM EDT Therapeutic decision making should be based on absolute values, rather than percentages. us Luda Morton MD LAB BLOOD ORDERABLES Final Result [facility] [address] [place] [address] * (ABNORMAL) CMP (02/22/2025 6:41 PM EDT) Glucose, Plasma 144(H) 74 - 99 mg/dL 02/22/2025 7:24 PM EDT [facility] BUN, Plasma 42(H) 8 - 23 mg/dL 02/22/2025 7:24 PM EDT [facility] Creatinine, Plasma 2.39(H) 0.60 - 1.10 mg/dL 02/22/2025 7:24 PM EDT [facility] BUN/Creatinine Ratio 18 02/22/2025 7:24 PM EDT [facility] Sodium, Plasma 125(L) 136 - 145 mmol/L 02/22/2025 7:24 PM EDT [facility] Potassium, Plasma 4.6 3.6 - 4.9 mmol/L 02/22/2025 7:24 PM EDT [facility] Chloride, Plasma 89(L) 97 - 107 mmol/L 02/22/2025 7:24 PM EDT [facility] CO2, Plasma 26 22 - 29 mmol/L 02/22/2025 7:24 PM EDT [facility] Anion Gap 10 6 - 16 mmol/L 02/22/2025 7:24 PM EDT [facility] Total Calcium, Plasma 9.0 8.9 - 10.2 mg/dL 02/22/2025 7:24 PM EDT [facility] Total Protein 7.3 6.3 - 7.9 g/dL 02/22/2025 7:24 PM EDT [facility] Albumin, Plasma 3.6 3.5 - 5.2 g/dL 02/22/2025 7:24 PM EDT [facility] AST, Plasma 13 10 - 35 U/L 02/22/2025 7:24 PM EDT [facility] ALT, Plasma 19 10 - 35 U/L 02/22/2025 7:24 PM EDT [facility] Alkaline Phosphatase, Plasma 144(H) 46 - 142 U/L 02/22/2025 7:24 PM EDT [facility] Total Bilirubin, Plasma <0.2(L) 0.2 - 1.1 mg/dL 02/22/2025 7:24 PM EDT [facility] eGFRcr 22.0 mL/min/1.7 3m*2 02/22/2025 7:24 PM EDT [facility] Comment:Reported eGFRcr in m L/min/1.73m2 is based the CKD-EPI 2020 equation that does not use a race coefficient. Blood Venous blood specimen / Unknown Venipuncture / Unknown 02/22/2025 6:41 PM EDT 02/22/2025 6:47 PM EDT us Luda Morton MD LAB BLOOD ORDERABLES Final Result [facility] [address] [id number] * (ABNORMAL) POCT venous blood gas gem (02/22/2025 6:37 PM EDT) pH, Venous 7.28(L) 7.32 - 7.43 02/22/2025 6:38 PM EDT [facility] pCO2, Venous 60(HH) 37 - 52 mm Hg 02/22/2025 6:38 PM EDT [facility] pO2, Venous 41(H) 25 - 40 mm Hg 02/22/2025 6:38 PM EDT [facility] SO2, Venous 72 65 - 80 % 02/22/2025 6:38 PM EDT [facility] Base Excess/Deficit, Venous 0.8 -2 - 3 mmol/L 02/22/2025 6:38 PM EDT [facility] HCO3, Venous 28.2(H) 22 - 26 mmol/L 02/22/2025 6:38 PM EDT [facility] Hemoglobin, Venous 9.2(L) 11.2 - 15.7 g/dL 02/22/2025 6:38 PM EDT [facility] Hematocrit, Venous 28.0(L) 34.0 - 45.0 % 02/22/2025 6:38 PM EDT [facility] Sodium, Venous 126(L) 136 - 145 mmol/L 02/22/2025 6:38 PM EDT [facility] Potassium, Venous 4.6 3.6 - 4.9 mmol/L 02/22/2025 6:38 PM EDT [facility] Comment:Hemolyzed, result ma y be falsely increased. POCT Chloride, Venous 94(L) 97 - 107 mmol/L 02/22/2025 6:38 PM EDT [facility] Glucose, Venous 139(H) 74 - 99 mg/dL 02/22/2025 6:38 PM EDT [facility] Ionized Calcium, Venous 4.9 4.6 - 5.1 mg/dL 02/22/2025 6:38 PM EDT [facility] Lactate, Venous 0.6 0.5 - 2.2 mmol/L 02/22/2025 6:38 PM EDT [facility] Body Temperature 37.0 Celsius 02/22/2025 6:38 PM EDT [facility] pH, Temp Corrected, Venous 7.28(L) 7.32 - 7.43 02/22/2025 6:38 PM EDT [facility] pCO2, Temp Corrected, Venous 60(HH) 37 - 52 mm Hg 02/22/2025 6:38 PM EDT [facility] pO2, Temp Corrected, Venous 41(H) 25 - 40 mm Hg 02/22/2025 6:38 PM EDT [facility] Screen Examiner ID Joao Jackson 02/22/2025 6:38 PM EDT [facility] Blood, Venous Whole blood specimen / Unknown 02/22/2025 6:37 PM EDT 02/22/2025 6:38 PM EDT us Generic Provider Poct LAB POINT OF CARE TEST DOCKED DEVICE UNSOLICITED RESULTS Final Result [facility] [address] [place] [address] * (ABNORMAL) POCT glucose meter (02/22/2025 6:17 PM EDT) POCT Glucose 150(H) 74 - 99 mg/dL 02/22/2025 6:19 PM EDT [facility] Comment:Accuracy of a glucos e result obtained from a capillary whole blood specimen relies upon adequate, non-compromised capillary blood flow. If the capillary glucose result is not consistent with the patient's clinical signs and symptoms, glucose testing should be repeated with either an arterial or venous sample on the glucometer or sent to the main labortory for testing. Comment 02/22/2025 6:19 PM EDT [facility] Screen Examiner ID Tracy Vasques 02/22/2025 6:19 PM EDT [facility] Device ID [id number] 02/22/2025 6:19 PM EDT [facility] Specimen Type POC Capillary 02/22/2025 6:19 PM EDT [facility] Blood Capillary blood specimen / Unknown 02/22/2025 6:17 PM EDT 02/22/2025 6:19 PM EDT us Generic Provider Poct LAB POINT OF CARE TEST DOCKED DEVICE UNSOLICITED RESULTS Final Result [facility] [address] [place] [address] * INTUBATION (02/22/2025 6:13 PM EDT) Narrative Luda Morton MD - 02/22/2025 6:13 PM EDT Luda Morton MD 02/25/2025 9:50 PM Intubation Performed by: Leon Wallace DO Authorized by: Luda Morton MD Consent: Consent obtained: Emergent situation Consent given by: Patient Attending Supervision?: yes Pre-procedure details: Indications: airway protection and altered consciousness Patient status: Altered mental status Look externally: no concerns Mouth opening - incisor distance: 3 or more finger widths Hyoid-mental distance: 3 or more finger widths Hyoid-thyroid distance: 2 or more finger widths Mallampati score: III Obstruction: none Neck mobility: normal Pharmacologic strategy: RSI Induction agents: Etomidate Paralytics: Succinylcholine Procedure details: Preoxygenation: Nonrebreather mask CPR in progress: no Number of attempts: 1 Successful intubation attempt details: Intubation method: Oral Intubation technique: video assisted Laryngoscope blade: Mac 3 Bougie used: no Grade view: I Tube size (mm): 7.5 Tube visualized through cords: yes Placement assessment: ETT at teeth/gumline (cm): 22 Tube secured with: ETT weiner Breath sounds: Equal Placement verification: chest rise, colorimetric ETCO2, CXR verification, direct visualization, equal breath sounds and waveform ETCO2 CXR findings: Appropriate position Post-procedure details: Procedure completion: Tolerated us Luda Morton MD IN CLINIC/BEDSIDE ORDERABLE S Final Result documented in this encounter Visit Diagnoses Diagnosis Sepsis (CMS/HCC)- Primary Wainwright coma scale total score 9-12, at arrival to emergency department Acute cystitis without hematuria Acute respiratory failure with hypercapnia COPD exacerbation (CMS/HCC) Obstructive chronic bronchitis with exacerbation Acute respiratory failure with hypoxia and hypercapnia Acute kidney injury superimposed on CKD (CMS/HCC) Chronic kidney disease, stage 3a (CMS/HCC) Hyponatremia Hyposmolality and/or hyponatremia Acute encephalopathy Sepsis with encephalopathy without septic shock, due to unspecified organism (CMS/HCC) Chronic diastolic (congestive) heart failure (CMS/HCC) 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 documented in this encounter Admitting Diagnoses Diagnosis Sepsis (CMS/HCC) documented in this encounter Administered Medications Inactive Administered Medications - up to 3 most recent administrations Medication Order MAR Action Action Date Dose Rate Site acetaminophen (Tylenol) tablet 650 mg 650 mg, Oral, Every 4 hours PRN, Starting on 02/25/25 at 2124, Until 03/02/25 at 1304, Routine, fever, mild pain, for temperature > 38.5 Given 03/02/2025 8:23 AM EDT 650 mg Given 02/27/2025 4:03 PM EDT 650 mg Given 02/26/2025 7:42 PM EDT 650 mg atorvastatin (Lipitor) tablet 40 mg 40 mg, Nasogastric, Nightly, First dose on 02/23/25 at 2100, Until Discontinued, Routine Given 02/24/2025 8:22 PM EDT 40 mg Given 02/23/2025 8:36 PM EDT 40 mg atorvastatin (Lipitor) tablet 40 mg 40 mg, Oral, Nightly, First dose (after last modification) on 02/25/25 at 2100, Until Discontinued, Routine Given 03/01/2025 9:10 PM EDT 40 mg Given 02/28/2025 8:45 PM EDT 40 mg Given 02/27/2025 8:50 PM EDT 40 mg baclofen (Lioresal) tablet 10 mg 10 mg, Oral, 3 times daily, First dose on Tue02/25/25 at 1600, Until Discontinued, Routine Given 03/02/2025 8:22 AM EDT 10 mg Given 03/01/2025 9:10 PM EDT 10 mg Given 03/01/2025 4:10 PM EDT 10 mg benzocaine (Orajel) 10 % mucosal gel 1 Application Mouth/Throat, 4 times daily PRN, Starting on 02/24/25 at 1954, Until 03/02/25 at 1304, Routine, mild pain Given 02/27/2025 3:59 PM EDT 1 Application Given 02/24/2025 10:19 PM EDT 1 Application carvedilol (Coreg) tablet 12.5 mg 12.5 mg, Oral, 2 times daily, First dose on Tue02/25/25 at 1700, Until Discontinued, Routine Given 02/26/2025 8:44 AM EDT 12.5 mg Given 02/25/2025 4:40 PM EDT 12.5 mg carvedilol (Coreg) tablet 12.5 mg 12.5 mg, Oral, Once, 1 dose, On Tue02/26/25 at 1245, Routine Given 02/26/2025 1:26 PM EDT 12.5 mg carvedilol (Coreg) tablet 25 mg 25 mg, Oral, 2 times daily, First dose (after last modification) on Tue02/26/25 at 2100, Until Discontinued, Routine Given 03/02/2025 8:23 AM EDT 25 mg Given 03/01/2025 9:10 PM EDT 25 mg Given 03/01/2025 8:51 AM EDT 25 mg cefTRIAXone (Rocephin) 2 g in sodium chloride 0.9% 100 mL IVPB (vial adapter required) 2 g, Intravenous, Every 24 hours, First dose on Tue03/01/25 at 1845, Until Discontinued, Routine New Bag 03/02/2025 8:32 AM EDT 2 g 220 mL/hr New Bag 03/01/2025 6:36 PM EDT 2 g 220 mL/hr clopidogrel (Plavix) tablet 75 mg 75 mg, Oral, Daily, First dose on Tue02/23/25 at 1445, Until Discontinued, Routine Given 03/02/2025 8:24 AM EDT 75 mg Given 03/01/2025 8:51 AM EDT 75 mg Given 02/28/2025 11:01 AM EDT 75 mg dexmedetomidine in NS (Precedex) 4 mcg/mL infusion 0.4-1.4 mcg/kg/hr 93.5 kg (9.35-32.725 mL/hr, rounded to 9.35-32.73 mL/hr), 4 mcg/mL, Intravenous, Titrated, Starting on Tue02/23/25 at 0045, Until Tue02/24/25 at 1644, Routine Rate/Dose Verify 02/24/2025 1:00 PM EDT 0.4 mcg/kg/hr 9.35 mL/hr Rate/Dose Verify 02/24/2025 12:00 PM EDT 0.6 mcg/kg/hr 14. 03 mL/hr New Bag 02/24/2025 11:17 AM EDT 0.8 mcg/kg/hr 18.7 mL/h r dextrose 10 % (D10W) bolus 125 mL 125 mL, Intravenous, Every 15 min PRN, Starting on Tue02/22/25 at 2027, Until Tue03/02/25 at 1304, Administer over 15 Minutes, Routine, low blood sugar BG 51-89 mg/dL dextrose 10 % (D10W) bolus 250 mL 250 mL, Intravenous, Every 15 min PRN, Starting on Tue02/22/25 at 2027, Until Tue03/02/25 at 1304, Administer over 15 Minutes, Routine, PRN low blood sugar BG =/<50 mg/dL diphenhydrAMINE (Benadryl) tablet 12.5 mg 12.5 mg, Oral, Once, 1 dose, On Tue03/01/25 at 1430, Routine Given 03/01/2025 2:01 PM EDT 12.5 mg DULoxetine (Cymbalta) DR capsule 30 mg 30 mg, Oral, Daily, 7 doses, First dose (after last modification) on Tue03/02/25 at 0900, Last dose on Tue03/08/25 at 0900, Routine Given 03/02/2025 8:22 AM EDT 30 mg DULoxetine (Cymbalta) DR capsule 60 mg 60 mg, Nasogastric, Daily, First dose on Tue02/23/25 at 0900, Until Discontinued, Routine Given 02/24/2025 8:08 AM EDT 60 mg Given 02/23/2025 8:29 AM EDT 60 mg DULoxetine (Cymbalta) DR capsule 60 mg 60 mg, Oral, Daily, 5 doses, First dose (after last modification) on Tue02/25/25 at 0900, Last dose on Tue03/01/25 at 0900, Routine Given 03/01/2025 8:50 AM EDT 60 mg Given 02/28/2025 11:01 AM EDT 60 mg Given 02/27/2025 8:20 AM EDT 60 mg fentaNYL (Duragesic) 12 MCG/HR 1 patch 1 patch, Transdermal, Every 72 hours, First dose on Tue02/26/25 at 1245, Until Discontinued, Administer over 72 Hours, Routine Medication Applied 03/01/2025 1:33 PM EDT 1 patch Chest Medication Applied 02/26/2025 1:05 PM EDT 1 patch Chest glucagon (human recombinant) injection 1 mg 1 mg, Intramuscular, Every 15 min PRN, Starting on Tue02/22/25 at 202, Until Tue03/02/25 at 1304, Routine, low blood sugar per Hypoglycemia Prevention and Treatment protocol glucose (Glutose) 40 % oral gel 15-30 grams of glucose 15-30 grams of glucose, Sublingual, Every 15 min PRN, Starting on Tue02/22/25 at 2028, Until Tue03/02/25 at 1304, Routine, low blood sugar, per Hypoglycemia Prevention and Treatment protocol heparin (porcine) injection 5,000 Units 5,000 Units, Subcutaneous, Every 8 hours scheduled, First dose on Tue02/23/25 at 0215, Until Discontinued, Routine Given 03/02/2025 5:44 AM EDT 5,000 Units Left Lower Abdomen Given 03/01/2025 9:10 PM EDT 5,000 Units L eft Upper Abdomen Given 03/01/2025 1:33 PM EDT 5,000 Units L eft Upper Abdomen HYDROmorphone (Dilaudid) bolus from bag 0.25 mg, Intravenous, Every 10 min PRN, Starting on Tue02/22/25 at 1922, Until Tue02/22/25 at 2355, Administer over 2 Minutes, Routine, moderate pain, CPOT (3-4) Bolus from Bag 02/22/2025 7:54 PM EDT 0.25 mg HYDROmorphone (Dilaudid) bolus from bag 0.5 mg, Intravenous, Every 10 min PRN, Starting on Tue02/22/25 at 1922, Until Tue02/22/25 at 2355, Administer over 2 Minutes, Routine, CPOT (5-8) Bolus from Bag 02/22/2025 7:27 PM EDT 0.5 mg HYDROmorphone (Dilaudid) injection 0.25 mg 0.25 mg, Intravenous, Every 30 min PRN, Starting on Tue02/22/25 at 2354, Until Tue02/25/25 at 2129, Routine, CPOT (3-4) Given 02/23/2025 8:05 AM EDT 0.25 mg HYDROmorphone (Dilaudid) injection 0.25 mg 0.25 mg, Intravenous, Every 3 hours PRN, Starting on Tue02/25/25 at 2310, Until Tue02/27/25 at 1159, Routine, severe pain, for breakthrough pain Given 02/26/2025 8:43 AM EDT 0.25 mg HYDROmorphone (Dilaudid) injection 0.5 mg 0.5 mg, Intravenous, Every 30 min PRN, Starting on Tue02/22/25 at 2354, Until Tue02/25/25 at 2129, Routine, CPOT (5-8) Given 02/25/2025 7:28 PM EDT 0.5 mg Given 02/25/2025 11:40 AM EDT 0.5 mg Given 02/24/2025 3:36 AM EDT 0.5 mg hydromorphone 20 mg in NS 100 mL infusion (200 mcg/mL) 0.25-2 mg/hr (1.25-10 mL/hr), 0.2 mg/mL, Intravenous, Titrated, Starting on Tue02/22/25 at 1925, Until Tue02/22/25 at 2355, Routine Rate/Dose Verify 02/22/2025 10:00 PM EDT 0.25 mg/hr 1.25 mL/hr New Bag 02/22/2025 7:27 PM EDT 0.25 mg/hr 1.25 mL/hr insulin glargine-yfgn 100 UNIT/ML injection 15 Units 15 Units, Subcutaneous, Nightly, First dose on 02/24/25 at 2100, Until Discontinued, Routine Given 02/26/2025 9:55 PM EDT 15 Units Left Lower Abdomen Given 02/25/2025 8:38 PM EDT 15 Units Ri ght Lower Abdomen Given 02/24/2025 8:22 PM EDT 15 Units Le ft Lower Abdomen insulin glargine-yfgn 100 UNIT/ML injection 30 Units 30 Units, Subcutaneous, Nightly, First dose (after last modification) on Tue02/27/25 at 2100, Until Discontinued, Routine Given 03/01/2025 9:10 PM EDT 30 Units Left Lower Abdomen Given 02/28/2025 8:44 PM EDT 30 Units Le ft Lower Abdomen Given 02/27/2025 8:51 PM EDT 30 Units Le ft Lower Abdomen insulin lispro (Admelog) 100 units/mL injection - Correction - Standard Dose 0-5 Units, Subcutaneous, 3 times daily with meals, First dose on 02/24/25 at 1745, Until Discontinued, Routine Given 03/02/2025 8:22 AM EDT 1 Units Right Upper Abdomen Given 03/01/2025 6:35 PM EDT 1 Units Le ft Lower Abdomen Given 03/01/2025 1:30 PM EDT 2 Units Le ft Lower Abdomen insulin lispro (Admelog) injection - Correction - Nighttime Dose 0-3 Units, Subcutaneous, 2 times nightly (2099 & 299), First dose on 02/24/25 at 2100, Until Discontinued, Routine Given 02/26/2025 9:54 PM EDT 2 Units Left Lower Abdomen insulin regular (HumuLIN R,NovoLIN R) 100 units/mL injection - Correction - Standard Dose 0-5 Units, Subcutaneous, Every 6 hours scheduled, First dose on 02/23/25 at 0215, Until Discontinued, Routine Given 02/24/2025 5:24 AM EDT 1 Units Left Lower Abdomen Given 02/24/2025 1:05 AM EDT 1 Units Le ft Lower Abdomen Given 02/23/2025 5:10 PM EDT 2 Units Le ft Upper Abdomen ipratropium-albuterol (Duo-Neb) 0.5-2.5 mg/3 mL nebulizer solution 3 mL 3 mL, Nebulization, Every 6 hours PRN, Starting on Tue02/24/25 at 1426, Until Tue02/27/25 at 1425, Routine, wheezing Given 02/24/2025 2:38 PM EDT 3 mL lactated Ringer's bolus 500 mL 500 mL, Intravenous, Once, 1 dose, On Tue02/22/25 at 2315, Administer over 2 Hours, Routine New Bag 02/22/2025 11:00 PM EDT 500 mL 250 mL/h r lactated Ringer's bolus 500 mL 500 mL, Intravenous, Once, 1 dose, On Tue02/23/25 at 0200, Administer over 2 Hours, Routine New Bag 02/23/2025 2:06 AM EDT 500 mL 250 mL/hr magnesium oxide (Mag-Ox) tablet 400 mg 400 mg, Oral, Once, 1 dose, On Tue02/26/25 at 0900, Routine Given 02/26/2025 8:44 AM EDT 400 mg magnesium sulfate in D5W IVPB 1 g 1 g, Intravenous, Once, 1 dose, On Hermelinda 02/28/25 at 1615, Routine New Bag 02/28/2025 6:05 PM EDT 1 g methylPREDNISolone sodium succinate (PF) (SOLU-Medrol) injection 125 mg 125 mg, Intravenous, Once, 1 dose, On Tue02/22/25 at 1840, STAT Given 02/22/2025 7:06 PM EDT 125 mg mirabegron ER (Myrbetriq) tablet 50 mg 50 mg, Oral, Daily, First dose on Tue02/25/25 at 1315, Until Discontinued, Routine Given 03/02/2025 8:24 AM EDT 50 mg Given 03/01/2025 8:51 AM EDT 50 mg Given 02/28/2025 11:02 AM EDT 50 mg mometasone-formoterol (Dulera 100) 100-5 MCG/ACT inhaler 2 puff 2 puff, Inhalation, 2 times daily, First dose on Tue02/25/25 at 1315, Until Discontinued, Routine Given 03/02/2025 8:24 AM EDT 2 puffs Given 03/01/2025 9:10 PM EDT 2 puffs Given 03/01/2025 8:52 AM EDT 2 puffs mupirocin (Bactroban) 2 % ointment 1 Application Each Nostril, 2 times daily, 10 doses, First dose on Tue02/22/25 at 2100, Last dose on Tue02/27/25 at 0900, Routine Given 02/27/2025 8:21 AM EDT 1 Applic ation Given 02/26/2025 9:54 PM EDT 1 Application Given 02/26/2025 8:44 AM EDT 1 Application ondansetron (Zofran) 4 MG/5ML solution 4 mg 4 mg, Oral, Every 6 hours PRN, Starting on Tue02/26/25 at 1128, Until 03/02/25 at 1304, Routine, nausea, vomiting ondansetron (Zofran) injection 4 mg 4 mg, Intravenous, Every 6 hours PRN, Starting on Tue02/26/25 at 1128, Until Tue03/02/25 at 1304, Routine, vomiting, nausea Given 02/27/2025 8:49 PM EDT 4 mg ondansetron ODT (Zofran-ODT) disintegrating tablet 4 mg 4 mg, Oral, Once, 1 dose, On Tue02/25/25 at 1645, Routine Given 02/25/2025 4:40 PM EDT 4 mg ondansetron ODT (Zofran-ODT) disintegrating tablet 4 mg 4 mg, Oral, Every 6 hours PRN, Starting on Tue02/26/25 at 1128, Until Tue03/02/25 at 1304, Routine, nausea, vomiting Given 02/26/2025 11:34 AM EDT 4 mg oxyCODONE (Roxicodone) immediate release tablet 5 mg 5 mg, Nasogastric, Every 6 hours PRN, Starting on Tue02/23/25 at 1449, Until Tue03/02/25 at 1304, Routine, moderate pain Given 03/02/2025 6:00 AM EDT 5 mg Given 03/01/2025 4:10 PM EDT 5 mg Given 03/01/2025 8:51 AM EDT 5 mg pantoprazole (Protonix) EC tablet 40 mg 40 mg, Oral, Daily, First dose on Tue02/25/25 at 1315, Until Discontinued, Routine Given 03/02/2025 8:24 AM EDT 40 mg Given 03/01/2025 8:50 AM EDT 40 mg Given 02/28/2025 11:01 AM EDT 40 mg pantoprazole (Protonix) injection 40 mg 40 mg, Intravenous, Daily, First dose on Tue02/22/25 at 2030, Until Discontinued, Routine Given 02/25/2025 9:17 AM EDT 40 mg Given 02/24/2025 8:08 AM EDT 40 mg Given 02/23/2025 8:30 AM EDT 40 mg piperacillin-tazobactam (Zosyn) 4.5 g in sodium chloride 0.9% 100 mL IVPB (vial adapter required) 4.5 g, Intravenous, Every 8 hours, First dose on Tue02/22/25 at 2245, Until Discontinued, Routine New Bag 02/23/2025 6:26 AM EDT 4.5 g 36. 7 mL/hr New Bag 02/22/2025 11:00 PM EDT 4.5 g 36.7 mL/hr polyethylene glycol (Miralax) packet 17 g 17 g, Oral, Daily, First dose on Tue02/23/25 at 1545, Until Discontinued, Routine Given 02/24/2025 8:08 AM EDT 17 g Given 02/23/2025 3:12 PM EDT 17 g pregabalin (Lyrica) capsule 25 mg 25 mg, Nasogastric, Daily, First dose on Tue02/23/25 at 1500, Until Discontinued, Routine Given 02/24/2025 8:08 AM EDT 25 mg Given 02/23/2025 3:05 PM EDT 25 mg pregabalin (Lyrica) capsule 25 mg 25 mg, Oral, Daily, First dose (after last modification) on Tue02/25/25 at 0900, Until Discontinued, Routine Given 02/25/2025 9:17 AM EDT 25 mg pregabalin (Lyrica) capsule 50 mg 50 mg, Oral, Daily, First dose (after last modification) on Tue02/26/25 at 0900, Until Discontinued, Routine Given 03/02/2025 8:23 AM EDT 50 mg Given 03/01/2025 8:50 AM EDT 50 mg Given 02/28/2025 11:02 AM EDT 50 mg propofol (Diprivan) infusion 10 mg/mL 10-50 mcg/kg/min 93.5 kg (5.61-28.05 mL/hr), Intravenous, Titrated, Starting on Tue02/22/25 at 1855, Until Tue02/22/25 at 2355, Routine Rate/Dose Verify 02/22/2025 10:00 PM EDT 25 mcg/kg/min 14.03 mL/hr Rate Change - Dual Sign 02/22/2025 8:11 PM EDT 25 mcg/kg/m in 14.03 mL/hr Rate Change - Dual Sign 02/22/2025 7:37 PM EDT 30 mcg/kg/m in 16.83 mL/hr sodium chloride 0.9 % flush 3 mL 3 mL, Intravenous, As needed, Starting on Tue02/22/25 at 2028, Until Tue03/02/25 at 1304, Routine, line care, 3 mL flush for PERIPHERAL IV CARE ONLY. vancomycin (Vancocin) 1,750 mg in sodium chloride 0.9 % 250 mL 1,750 mg (rounded from 1,870 mg = 20 mg/kg 93.5 kg), Intravenous, Once, 1 dose, On Tue02/22/25 at 2330, at 167.1 mL/hr, STAT Given 02/22/2025 11:00 PM EDT 1,750 mg 167.1 mL/hr documented in this encounter Active and Recently Administered Medications Times are shown in EDT. Scheduled Medication Order 02/28/2025 03/01/2025 03/02/2025 atorvastatin (Lipitor) tablet 40 mg 40 mg, Oral, Nightly, First dose (after last modification) on Tue02/25/25 at 2100, Until Discontinued, Routine 2044 (Given - Provider: Gerry Ambriz) 2109 (Given - Provider: Aleyda Holley RN) baclofen (Lioresal) tablet 10 mg 10 mg, Oral, 3 times daily, First dose on Tue02/25/25 at 1600, Until Discontinued, Routine 1100 (Given - Provider: Gayle Light, JIMI)175 (Given - Provider: Gayle Light, JIMI - Comment: pt asleep)2044 (Given - Provider: Gerry Ambriz) 0851 (Given - Provider: Yves Roberts)1610 (Given - Provider: Gayle Light RN)2110 (Given - Provider: Aleyda Holley RN) 0822 (Given - Provider: Gayle Light RN) carvedilol (Coreg) tablet 25 mg 25 mg, Oral, 2 times daily, First dose (after last modification) on Tue02/26/25 at 2100, Until Discontinued, Routine 1240 (Given - Provider: Gayle Light RN)2045 (Given - Provider: Gerry Ambriz) 0851 (Given - Provider: Yves Roberts)2110 (Given - Provider: Aleyda Holley, JIMI) 0823 (Given - Provider: Gayle Light RN) cefTRIAXone (Rocephin) 2 g in sodium chloride 0.9% 100 mL IVPB (vial adapter required) 2 g, Intravenous, Every 24 hours, First dose on Tue03/01/25 at 1845, Until Discontinued, Routine 1836 (New Bag - Provider: Gayle Light RN) 0832 (New Bag - Provider: Gayle Light RN - Comment: Given early per provider verbal order as patient discharges at 0900) clopidogrel (Plavix) tablet 75 mg 75 mg, Oral, Daily, First dose on Tue02/23/25 at 1445, Until Discontinued, Routine 1101 (Given - Provider: Gayle Light RN) 0851 (Given - Provider: Yves Roberts) 0824 (Given - Provider: Gayle Light RN) diphenhydrAMINE (Benadryl) tablet 12.5 mg (COMPLETED) 12.5 mg, Oral, Once, 1 dose, On Tue03/01/25 at 1430, Routine 1401 (Given - Provider: Gayle Light RN) DULoxetine (Cymbalta) DR capsule 30 mg(Linked Group 1) 30 mg, Oral, Daily, 7 doses, First dose (after last modification) on Tue03/02/25 at 0900, Last dose on Tue03/08/25 at 0900, Routine 0822 (Given - Provid er: Gayle Light RN) DULoxetine (Cymbalta) DR capsule 60 mg (COMPLETED)(Linked Group 1) 60 mg, Oral, Daily, 5 doses, First dose (after last modification) on Tue02/25/25 at 0900, Last dose on Tue03/01/25 at 0900, Routine 1101 (Given - Provider: Gayle Light RN) 0850 (Given - Provider: Yves Roberts) fentaNYL (Duragesic) 12 MCG/HR 1 patch 1 patch, Transdermal, Every 72 hours, First dose on Tue02/26/25 at 1245, Until Discontinued, Administer over 72 Hours, Routine 1333 (Medication Applied - Provider: Gayle Light RN)1336 (Medication Removed - Provider: Gayle Light RN) 1104 (Due: Medication Removed - Provider: Automatic Discharge Provider - Comment: Time automatically adjusted from order being discontinued) heparin (porcine) injection 5,000 Units 5,000 Units, Subcutaneous, Every 8 hours scheduled, First dose on Tue02/23/25 at 0215, Until Discontinued, Routine 0538 (Given - Provider: Gerry Ambriz)1354 (Given - Provider: Gayle Light RN)204 (Given - Provider: Gerry Ambriz) 0551 (Given - Provider: Gerry Ambriz)1333 (Given - Provider: Gayle Light RN)2110 (Given - Provider: Aleyda Holley RN) 0544 (Given - Provider: Aleyda Holley RN) insulin glargine-yfgn 100 UNIT/ML injection 30 Units 30 Units, Subcutaneous, Nightly, First dose (after last modification) on Tue02/27/25 at 2100, Until Discontinued, Routine 204 (Given - Provider: Gerry Ambriz) 211 (Given - Provider: Aleyda Holley, JIMI) insulin lispro (Admelog) 100 units/mL injection - Correction - Standard Dose 0-5 Units, Subcutaneous, 3 times daily with meals, First dose on Tue02/24/25 at 1745, Until Discontinued, Routine 1104 (Not Given - Provider: Gayle Light RN - Reason: Patient in procedure)1354 (Given - Provider: Gayle Light, JIMI)1754 (Given - Provider: Gayle Light, JIMI) 0852 (Given - Provider: Yves Roberts)1330 (Given - Provider: Gayle Light, JIMI)1835 (Given - Provider: Gayle Light RN) 0822 (Given - Provider: Gayle Light RN)1230 (Canceled Entry - Provider: Automatic Discharge Provider - Comment: Automatically canceled at discontinue of medication order) insulin lispro (Admelog) injection - Correction - Nighttime Dose 0-3 Units, Subcutaneous, 2 times nightly (2100 & 0300), First dose on Tue02/24/25 at 2100, Until Discontinued, Routine 021 (Not Given - Provider: Gerry Ambriz - Reason: Order parameters not met)2106 (Not Given - Provider: Gerry Ambriz - Reason: Order parameters not met) 246 (Not Given - Provider: Gerry Ambriz - Reason: Order parameters not met)2110 (Not Given - Provider: Aleyda Holley, JIMI - Reason: Order parameters not met) 031 (Not Given - Provider: Aleyda Holley RN - Reason: Order parameters not met) magnesium sulfate in D5W IVPB 1 g (COMPLETED) 1 g, Intravenous, Once, 1 dose, On Hermel[place] 02/28/25 at 1615, Routine 1805 (New Bag - Provider: Gayle Light RN) mirabegron ER (Myrbetriq) tablet 50 mg 50 mg, Oral, Daily, First dose on Tue02/25/25 at 1315, Until Discontinued, Routine 1102 (Given - Provider: Gayle Light RN) 0851 (Given - Provider: Yves Roberts) 0824 (Given - Provider: Gayle Light RN) mometasone-formotero l (Dulera 100) 100-5 MCG/ACT inhaler 2 puff 2 puff, Inhalation, 2 times daily, First dose on Tue02/25/25 at 1315, Until Discontinued, Routine 1104 (Given - Provider: Gayle Light RN)2043 (Given - Provider: Gerry Ambriz) 0852 (Given - Provider: Yves Roberts)2110 (Given - Provider: Aleyda Holley, JIMI) 0824 (Given - Provider: Gayle Light, JIMI) pantoprazole (Protonix) EC tablet 40 mg 40 mg, Oral, Daily, First dose on Tue02/25/25 at 1315, Until Discontinued, Routine 1101 (Given - Provider: Gayle Light, JIMI) 0850 (Given - Provider: Yves Roberts) 0824 (Given - Provider: Gayle Light, JIMI) pregabalin (Lyrica) capsule 50 mg 50 mg, Oral, Daily, First dose (after last modification) on Tue02/26/25 at 0900, Until Discontinued, Routine 1102 (Given - Provider: Gayle Light RN) 0850 (Given - Provider: Yves Roberts) 0823 (Given - Provider: Gayle Light RN) PRN Medication Order 02/28/2025 03/01/2025 03/02/2025 acetaminophen (Tylenol) tablet 650 mg 650 mg, Oral, Every 4 hours PRN, Starting on 02/25/25 at 2124, Until 03/02/25 at 1304, Routine, fever, mild pain, for temperature > 38.5 0823 (Given - Provider: Gayle Light RN) benzocaine (Orajel) 10 % mucosal gel 1 Application Mouth/Throat, 4 times daily PRN, Starting on 02/24/25 at 1954, Until 03/02/25 at 1304, Routine, mild pain dextrose 10 % (D10W) bolus 125 mL(Linked Group 2) 125 mL, Intravenous, Every 15 min PRN, Starting on Tue02/22/25 at 2027, Until 03/02/25 at 1304, Administer over 15 Minutes, Routine, low blood sugar BG 51-89 mg/dL dextrose 10 % (D10W) bolus 250 mL(Linked Group 2) 250 mL, Intravenous, Every 15 min PRN, Starting on Tue02/22/25 at 2027, Until 03/02/25 at 1304, Administer over 15 Minutes, Routine, PRN low blood sugar BG =/<50 mg/dL glucagon (human recombinant) injection 1 mg(Linked Group 2) 1 mg, Intramuscular, Every 15 min PRN, Starting on Tue02/22/25 at 2027, Until 03/02/25 at 1304, Routine, low blood sugar per Hypoglycemia Prevention and Treatment protocol glucose (Glutose) 40 % oral gel 15-30 grams of glucose(Linked Group 2) 15-30 grams of glucose, Sublingual, Every 15 min PRN, Starting on Tue02/22/25 at 2028, Until 03/02/25 at 1304, Routine, low blood sugar, per Hypoglycemia Prevention and Treatment protocol ondansetron (Zofran) 4 MG/5ML solution 4 mg(Linked Group 3) 4 mg, Oral, Every 6 hours PRN, Starting on Tue02/26/25 at 1128, Until 03/02/25 at 1304, Routine, nausea, vomiting ondansetron (Zofran) injection 4 mg(Linked Group 3) 4 mg, Intravenous, Every 6 hours PRN, Starting on Tue02/26/25 at 1128, Until 03/02/25 at 1304, Routine, vomiting, nausea ondansetron ODT (Zofran-ODT) disintegrating tablet 4 mg(Linked Group 3) 4 mg, Oral, Every 6 hours PRN, Starting on Tue02/26/25 at 1128, Until 03/02/25 at 1304, Routine, nausea, vomiting oxyCODONE (Roxicodone) immediate release tablet 5 mg 5 mg, Nasogastric, Every 6 hours PRN, Starting on Tue02/23/25 at 1449, Until 03/02/25 at 1304, Routine, moderate pain 0310 (Given - Provider: Gerry Ambriz)1805 (Given - Provider: Gayle Light RN) 0009 (Given - Provider: Gerry Ambriz)0851 (Given - Provider: Yves Roberts)1610 (Given - Provider: Gayle Light, JIMI) 0600 (Given - Provider: Aleyda Holley RN) sodium chloride 0.9 % flush 3 mL(Linked Group 4) 3 mL, Intravenous, As needed, Starting on Tue02/22/25 at 2028, Until 03/02/25 at 1304, Routine, line care, 3 mL flush for PERIPHERAL IV CARE ONLY. Linked Groups Order Group 1: DULoxetine (Cymbalta) DR capsule 60 mg (COMPLETED)Jump to med 60 mg, Oral, Daily, 5 doses, First dose (after last modification) on Tue02/25/25 at 0900, Last dose on Tue03/01/25 at 0900, Routine Followed by DULoxetine (Cymbalta) DR capsule 30 mgJump to med 30 mg, Oral, Daily, 7 doses, First dose (after last modification) on Tue03/02/25 at 0900, Last dose on Tue03/08/25 at 0900, Routine Group 2: glucose (Glutose) 40 % oral gel 15-30 grams of glucoseJump to med 15-30 grams of glucose, Sublingual, Every 15 min PRN, Starting on Tue02/22/25 at 2027, Until Tue03/02/25 at 1304, Routine, low blood sugar, per Hypoglycemia Prevention and Treatment protocol Or dextrose 10 % (D10W) bolus 125 mLJump to med 125 mL, Intravenous, Every 15 min PRN, Starting on Tue02/22/25 at 2027, Until Tue03/02/25 at 1304, Administer over 15 Minutes, Routine, low blood sugar BG 51-89 mg/dL Or dextrose 10 % (D10W) bolus 250 mLJump to med 250 mL, Intravenous, Every 15 min PRN, Starting on Tue02/22/25 at 2027, Until Tue03/02/25 at 1304, Administer over 15 Minutes, Routine, PRN low blood sugar BG =/<50 mg/dL Or glucagon (human recombinant) injection 1 mgJump to med 1 mg, Intramuscular, Every 15 min PRN, Starting on Tue02/22/25 at 2027, Until 03/02/25 at 1304, Routine, low blood sugar per Hypoglycemia Prevention and Treatment protocol Group 3: ondansetron ODT (Zofran-ODT) disintegrating tablet 4 mgJump to med 4 mg, Oral, Every 6 hours PRN, Starting on Tue02/26/25 at 1128, Until Tue03/02/25 at 1304, Routine, nausea, vomiting Or ondansetron (Zofran) injection 4 mgJump to med 4 mg, Intravenous, Every 6 hours PRN, Starting on Tue02/26/25 at 1128, Until 03/02/25 at 1304, Routine, vomiting, nausea Or ondansetron (Zofran) 4 MG/5ML solution 4 mgJump to med 4 mg, Oral, Every 6 hours PRN, Starting on Tue02/26/25 at 1128, Until Tue03/02/25 at 1304, Routine, nausea, vomiting Group 4: Insert peripheral IV (COMPLETED) Once, On Tue02/22/25 at 2028, For 1 occurrence And Saline lock IV (COMPLETED) Once, On Tue02/22/25 at 2028, For 1 occurrence And sodium chloride 0.9 % flush 3 mLJump to med 3 mL, Intravenous, As needed, Starting on Tue02/22/25 at 2027, Until 03/02/25 at 1304, Routine, line care, 3 mL flush for PERIPHERAL IV CARE ONLY. 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 Respiratory Rule-Out 02/22/2025 02/23/2025 025 5:07 AM EDT Rhinovirus 02/23/2025 02/23/2025 Assessment Noted Time PHQ-9 Depression Total Score: 13 025 10:12 AM EST A fall risk assessment has been complete d for the patient 12/31/2024 3:03 PM EDT A Body Mass Index follow-up plan has been documented for the patient 03/02/2025 9:03 AM EDT documented as of this encounter Care Teams Hide Dyer Relationship Specialty Start Date End Date Vignesh Pickens MD [address] [place] [address] PCP - General 12/31/24 Cayla Erazo APRN, [facility] [address] [place] [address] Nurse Practitioner Urology 12/20/24 documented as of this encounter
--- OUTSIDE RECORDS SUMMARY | 2025-02-28 08:15 | XMS_ITS | Encounter Summary ---
Author Organization [facility] Address [address] [place] [address] Care Team Providers Care Tool Room Supervisor Name Role Phone Cayla Erazo APRN, DNP Unavailable [phone] Vignesh Pickens MD Primary Care Provider [phone] Reason for Visit * Auth/Cert (Routine) Specialty Diagnoses / Procedures Referred By Contac t Referred To Contact Diagnoses Sepsis (CMS/HCC) UTI, CKD, Hyponatremia, COPD exacerbation Bobby Parra MD [address] [place] [phone] Phone: tel: fax: PAV A Inpatient [address] [place] [phone] Referral ID Status Reason Start Date Expiration Date Visits Re quested Visits Authorized [id number] 1 1 Encounter Details Date Type Department Care Team (Latest Contact Info) Description 02/28/2025 8:15 AM EDT Office Visit [facility] [address] [place] [address] Bert Lim, DMD [address] [place] [address] Caries (Primary Dx) Social History Tobacco Use [...] drink first t rodríguez in the morning (EYE-SHELL PRESS OPERATOR) to steady your nerves or to get rid of a hangover? 0 08/15/2024 CAGE Questionnaire Score 0 024 Utilities Answer Date Recorded In the past 12 months has th [employer], gas, oil, or water company threatened to [...] to prescribing narcotic medication. Bert Lim DMD [facility] fall internship PGY-1 Pager #: [phone] Cosigned by Froylan Summers DMD at 03/01/2025 [...] Description 04/04/2025 10:40 AM EDT Office Visit [facility] [address] 2nd [place] [address] Eugenia Jimenez, ELECTRIC MOTOR TESTER ASSEMBLER [address] [place] [address] 05/16/2025 8:00 AM EDT Office Visit [facility] [place] [address] [facility], [address] [place] [address] Karly Gracia MD [address] [place] [address] 06/07/2025 1:00 PM EDT Office Visit [facility] [address] [place] [address] Tom Iraheta MD [address] [place] [address] documented as of this encounter [...] as of this encounter Care Teams Tool Room Supervisor Relationship Specialty Start Date End Date Vignesh Pickens MD [address] [place] [address] PCP - General 12/31/24 Cayla Erazo, LIZANDRO, DNP [address] [place] [address] Nurse Practitioner Urology 12/20/24 documented as of this encounter
--- OUTSIDE RECORDS SUMMARY | 2025-03-07 10:00 | XMS_ITS | Encounter Summary ---
Author Organization [facility] Address [address] [place] [address] Care Team Providers Care Stone Crusher Operator Name Role Phone Cayla Erazo APRN, DNP Unavailable [phone] Vignesh Pickens MD Primary Care Provider [phone] Reason for Visit * Other Medical (Routine) - Closed Specialty Diagnoses / Procedures Referred By Contelvie t Referred To Contact Urology Diagnoses Gross hematuria Procedures Cysto- Urology Cayla Erazo APRN, DNP [address] [address] Phone: tel: fax: Referral ID Status Reason Start Date Expiration Date Visits Re quested Visits Authorized [id number] Closed 12/25/2024 06/26/2026 1 1 Encounter Details Date Type Department Care Team (Late st Contact Info) Description 03/07/2025 10:00 AM EDT [facility] [address] [address] Doug Chapman MD [id number] Gross hematuria Social History Tobacco Use [...] drink first t rodríguez in the morning (EYE-RAIL TRANSPORTATION TABELER) to steady your nerves or to get rid of a hangover? 0 08/15/2024 CAGE Questionnaire Score 0 024 Utilities Answer Date Recorded In the past 12 months has th e [employer], gas, oil, or water [employer] threatened to shut off services in your [...] at all 03/07/2025 10:14 AM TOSHAT Shruthi Maruicio LPN Patient Health Questionnaire-2 Score 0 03/07/2025 [...] Maxwell MD - 03/07/2025 10:00 AM EDT [facility] Urology Clinic Note CC: hematuria HPI: Eileen Tovar is a 64 y.o. F who was initially evaluated in Sep 2024 for diagnosis ofbilateral hydronephrosis in Jul 2024 thought to be due to severe constipation. She was treated for UTI while inpatient at [facility] and had improvement in renal function and hydronephrosis with indwellingFoley catheter that was removed prior to discharge to [facility] in [place]. She is a limited historian, presented in a wheelchair, and is accompanied by a staff member from [facility] without further information provided. She presents [...] Vitals: 03/07/25 1009 BP: 108/63 Pulse: 79 Onion Tier present during entire exam General: Pleasant, alert, [...] Essential (primary) hypertension CAD (coronary artery disease), [place] coronary artery Controlled diabetes mellitus type II without complication Iron deficiency anemia Second hand smoke exposure Acute kidney injury superimposed on CKD ([facility]/HCC) Arthritis Cellulitis of left knee Chronic respiratory failure COPD (chronic obstructive pulmonary disease) ([facility]) Dehydration with hyponatremia Diabetes mellitus ([facility]) Hyperlipidemia Restrictive lung disease Stroke ([facility]) Dave coma scale total score 13-15, unspecified coma timing Pyelonephritis Kidney infection Acquired absence of leg above knee Stage 3 chronic kidney disease ([facility]) Type 2 diabetes mellitus with diabetic chronic kidney disease ([facility]) Peripheral vascular disease, unspecified ([facility]) Prosthetic joint infection ([facility]) Unspecified hydronephrosis Vitamin D deficiency, unspecified Disorder of kidney and ureter, unspecified Unspecified right bundle-branch block Unspecified abdominal pain Tubulo-interstitial nephritis, not specified as acute or chronic Tinea unguium Secondary hyperparathyroidism of renal origin ([facility]) Pain in right toe(s) Pain in left toe(s) Edema, unspecified Presence of left artificial knee joint Other specified disorders of the skin and subcutaneous tissue Other nonspecific abnormal finding of lung field Weakness Other disorders of phosphorus metabolism Other acute postprocedural pain Old myocardial infarction Nontoxic single thyroid nodule Morbid (severe) obesity due to excess calories ([facility]) Mixed simple and mucopurulent chronic bronchitis ([facility]) Methicillin resistant Staphylococcus aureus infection Hypertensive heart and chronic kidney disease with heart failure and stage 1 through stage 4 chronic kidney disease, or unspecified chronic kidney disease ([facility]) Hyperkalemia Hydronephrosis with renal and ureteral calculous obstruction Hemiplegia and hemiparesis following cerebral infarction affecting left non- dominant side ([facility]) Fecal impaction ([facility]) Dysuria Dyspnea, unspecified Deep venous thrombosis of lower extremity Constipation, unspecified Chronic diastolic (congestive) heart failure ([facility]/HCC) Calculus of kidney Atrial premature depolarization Adult [...] or stenosis of left carotid arteries ([facility]) Anemia in chronic kidney disease [...] BREAST SURGERY N/A Breast Surgery Reconstruction from [facility] [facility] BREAST SURGERY N/A Breast Surgery from [facility] CHOLECYSTECTOMY N/A Cholecystotomy from [facility] KIDNEY SURGERY N/A Kidney Surgery from [facility] KNEE SURGERY N/A Knee Surgery from [facility] MASTECTOMY N/A Breast Surgery Mastectomy from [facility] SHOULDER SURGERY Right Shoulder Surgery Right from [employer] [4] Family History Problem Relation Name Age [...] Description 04/04/2025 10:40 AM EDT [facility] [address] [address] Eugenia Jimenez APRN [address] [address] 05/16/2025 8:00 AM EDT Office Visit [facility] [place] [address] [facility], [address] [address] Karly Gracia MD [address] [place] [address] 06/07/2025 1:00 PM EDT Office Visit [facility] [address] [facility] [address] [place] [address] Tom Iraheta MD [address] [place] [address] documented as of this encounter [...] documented as of this encounter Care Teams Stone Crusher Operator Relationship Specialty Start Date End Date Vignesh Pickens MD [address] [place] [address] PCP - General 12/31/24 Cayla Erazo APRN, DNP [address] [address] Nurse Practitioner Urology 12/20/24 documented as of this encounter
--- OUTSIDE RECORDS SUMMARY | 2025-03-31 17:04 | XMS_ITS | Clinical Summary ---
Author Organization [facility] Address [address] 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 025 Discontinued(St op Taking at Discharge) insulin glargine (Basaglar KwikPen) 100 UNIT/ML injection pen Inject 70 Units under the skin 2 times a day. @ 0630 and 1999 025 Discontinued(St op Taking at Discharge) pregabalin (Lyrica) 50 MG capsule Take 1 capsule (50 mg) by mouth 2 (two) times a day. 60 capsule 08/22/19 25 025 Discontinued(St op Taking at Discharge) oxyCODONE-vida taminophen (Percocet) 5-325 MG tablet Take 1 tablet by mouth 2 (two) times a day if needed for severe pain. 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 03/02/20 025 Additional Information Patient not taking.Reported on [...] ureteral calculous obstruction 08/17/2024 Kidney infection 08/16/2024 Scott coma scale total sco re 13-15, unspecified [...] without esophagitis 03/28/2017 CAD (coronary artery disease), [place] coronary a rtery 03/28/2017 Controlled diabetes mellitus [...] Type Department Care Team Description 03/27/2025 Telephone [facility] [address] [place] [address] Doug Chapman MD 03/07/2025 10:00 AM EDT Office Visit [facility] [address], [address] [place] [address] Doug Chapman MD Gross hematuria 03/07/2025 Travel 03/04/2025 Results Follow-Up [facility] Medicine Virtual Dept. [address] [place] [address] Madonna Singleton MD 03/01/2025 Telephone [facility] [address] [address] Dental, Surgeon, 02/28/2025 8:15 AM EDT Office Visit [facility] [address] [address] Bert Lim, RAYMON Caries (Primary Dx) 02/28/2025 Travel 02/27/2025 Travel 02/24/2025 Travel 02/22/2025 6:13 PM EDT - 03/02/2025 11:04 AM EDT Hospital Encounter [facility] [address] [place] [address] Daniel Gordillo MD Salahuddin, Nawal, MD Powers, Michael F, MD Pasha, Sara N, MD Sagheer, Iqra, MD Acute respiratory failure with hypoxia and hypercapnia (Primary Dx); Scott coma scale total score 9-12, at arrival to emergency department; Acute cystitis without hematuria; Acute respiratory failure with hypercapnia; COPD exacerbation (CMS/HCC); Acute kidney injury superimposed on CKD (CMS/HCC); Chronic kidney disease, stage 3a ([facility]/HCC); Hyponatremia; Acute encephalopathy; Sepsis with encephalopathy without septic shock, due to unspecified organism ([facility]); Chronic diastolic (congestive) heart failure (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 Discharge Disposition: Senior Living Facility 02/22/2025 Travel 02/22/2025 Orders Only External Location [address] [place] [address] Jordan Carl MD 02/22/2025 Orders Only External Location [address] [place] [address] Jordan Carl MD 02/22/2025 Orders Only External Location [address] [place] [address] Jordan Carl MD 02/22/2025 Orders Only External Location [address] [place] [address] Jordan Carl MD 01/31/2025 9:48 AM EDT Anesthesia Event [facility] OPER[facility] RO[facility] [address] [place] [address] Nj Sears MD 01/31/2025 8:55 AM EDT - 01/31/2025 10:10 AM EDT Surgery [facility] [address] [place] [address] Ceci Mitchell MD URETEROSCOPY,CYSTOSCO PY, RETROGRADE PYELOGRAM, BILATERAL STENT PLACEMENT [38199 (CPT )] 01/31/2025 8:03 AM EDT - 01/31/2025 1:39 PM EDT Hospital Encounter [facility] [address] [place] [address] Ceci Mitchell MD Urinary retention (Primary Dx); Gross hematuria Discharge Disposition: Home or Self Care 01/31/2025 Travel 01/24/2025 2:00 PM EDT Pre-Admission Testing [facility] [address] [place] [address] 01/24/2025 Travel 01/23/2025 Telephone [facility] [address] [place] [address] Ceci Mitchell MD 01/17/2025 Telephone [facility] [address] [place] [address] Ceci Mitchell MD 01/16/2025 Telephone [facility] [address] [place] [address] Ceci Mitchell MD 01/03/2025 2:15 PM EDT - 01/03/2025 11:59 PM EDT Hospital Encounter [facility] [address] [place] [address] Gross hematuria Discharge Disposition: Home or Self Care 01/03/2025 Travel 12/31/2024 4:00 PM EDT Office Visit [facility] [address] [place] [address] Bert Canela MD Asymptomatic bilateral carotid artery stenosis (Primary Dx); PVD (peripheral vascular disease) ([facility]); Hx of AKA (above knee amputation), left ([facility]); History of stroke; Type 2 diabetes mellitus without complication, unspecified whether skilled nursing insulin use 12/31/2024 2:01 PM EDT - 12/31/2024 11:59 PM EDT Hospital Encounter [facility] [address] [place] [address] Coronary artery disease involving eastern shoshone heart without angina pectoris, unspecified vessel or lesion type; S/P AKA (above knee amputation) bilateral ([facility]); Acute left arterial ischemic stroke, ICA (internal carotid artery) ([facility]) Discharge Disposition: Home or Self Care 12/31/2024 2:01 PM EDT - 12/31/2024 11:59 PM EDT Hospital Encounter [facility] [address] [place] [address] S/P AKA (above knee amputation) bilateral ([facility]); Encounter for surgical aftercare following surgery on the circulatory system Discharge Disposition: Home or Self Care 12/31/2024 Travel from Last 3 Months Immunizations Immunization Administration Dates Next Due Influenza, injectable, quadrivalent, preservativ e free 05/11/[address] [employer] COVID-19 Vaccine (Purple Cap) 12 + 09/30/2020,09/09/2020 [...] drink first t rodríguez in the morning (EYE-PEER EDUCATOR) to steady your nerves or to get [...] Description 04/04/2025 10:40 AM EDT Office Visit [facility] [address] [place] [address] Eugenia Jimenez, LANGUAGE TEACHER [address] [place] [address] 05/16/2025 8:00 AM EDT Office Visit [facility] [place] [address] [facility], [address] [place] [address] Karly Gracia MD [address] [place] [address] 06/07/2025 1:00 PM EDT Office Visit [facility] [address] [place] [address] Tom Iraheta MD [address] [place] [address] Health Maintenance Due Date Last [...] - Risk 60-74 years 1-dose series) 2019 [id number] Vaccine (3 - Pfizer risk series) 10/28/2020 [...] this topic Medical Devices Implanted Type Area Pot Fireman Device Identifier Shelf Expiration Date Model / Serial / Lot Stent Ureteral Tria [employer] Monofilament 7f/24cm - [id number] Implanted:Qty: 1 on 01/31/2025 by Ceci Mitchell MD at [facility] Right: Kidney hCentive-[id number] 06/14/2027 [id number] / / [id number] Stent Ureteral [employer]ria [employer] Monofilament 7f/24cm - [id number] Implanted:Qty: 1 on 01/31/2025 by Ceci Mitchell MD at [facility] Left: Kidney hCentive-[id number] 49 07/02/2027 [id number] / / [id number] Procedures Procedure Name Priority Date/Time Associated Diagnosis [...] hypercapnia Acute kidney injury superimposed on CKD ([facility]) Chronic kidney disease, stage 3a ([facility]) Hyponatremia Acute encephalopathy Sepsis with encephalopathy without septic shock, due to unspecified organism ([facility]) Chronic diastolic (congestive) heart failure ([facility]) POCT GLUCOSE METER [...] hypercapnia Acute kidney injury superimposed on CKD ([facility]) Chronic kidney disease, stage 3a ([facility]) Hyponatremia Acute encephalopathy Sepsis with encephalopathy without septic shock, due to unspecified organism ([facility]) VANCOMYCIN, RANDOM, PLASMA Routine 02/23/2025 [...] ANESTHESIA PLACEHOLDER Routine 01/31/2025 9:58 AM EDT OH AN ELECTIVE ENDOTRACHEAL AIRWAY Routine 01/31/2025 9:58 AM EDT OH CYSTO/URETERO/PYELOSC ,BX &/OR FULG LESN 01/31/2025 9:32 [...] 2:27 PM EDT Coronary artery disease involving eastern shoshone heart without angina pectoris, unspecified vessel or [...] for testing. Comment 03/02/2025 8:14 AM EDT [facility] Storage Battery Charger ID Marnie Francesfany 025 8:14 AM EDT [facility] Device ID [id number] 03/02/2025 8:14 AM EDT [facility] Specimen Type POC Capillary 03/02/2025 8:14 AM EDT [facility] Blood Capillary blood specimen / Unknown 03/02/2025 8:13 AM EDT 03/02/2025 8:14 AM EDT us Madonna Singleton MD LAB POINT OF CARE TE ST DOCKED DEVICE UNSOLICITED RESULTS Final Result Performing Organization Address City/[facility] Co de Phone Number [facility] [address] [place] [address] * SEND HECTOR MESSAGE (03/01/2025 4:15 PM EDT) Only the most recent of2 resultswithin the time period is included. Urine Urine specimen obtained by clean catch procedure / Unknown Non-blood Collection / Unknown 03/01/2025 4:15 PM EDT 03/01/2025 4:26 PM EDT us Madonna Singleton MD LAB URINE ORDERABLES Final Resul t Performing Organization Address [facility] Phone Number [facility] [address] [place] [address] * Urine Salmon Panel (03/01/2025 4:15 PM EDT) Only the most recent of2 resultswithin the time period is included. Extra Sent for Culture 03/01/2025 6:01 PM EDT [facility] Urine Urine specimen obtained by clean catch procedure / Unknown Non-blood Collection / Unknown 03/01/2025 4:15 PM EDT 03/01/2025 4:26 PM EDT us Madonna Singleton MD LAB URINE ORDERABLES Final Resul t Performing Organization Address [facility] de Phone Number [facility] [address] [place] [address] * Urinalysis Microscopic Examination (03/01/2025 4:15 PM EDT) Only the most recent of2 resultswithin the time period is included. Urine Urine specimen obtained by clean catch procedure / Unknown Non-blood Collection / Unknown 03/01/2025 4:15 PM EDT 03/01/2025 4:26 PM EDT us Madonna Singleton MD LAB URINE ORDERABLES Final Resul t [facility] [address] [place] [address] * (ABNORMAL) Urinalysis with reflex microscopic (Culture NOT Included) (03/01/2025 4:15 PM EDT) Only the most recent of2 resultswithin the time period is included. Color, Urine Yellow LAB URINALYSIS - AUTOMATED METHOD 03/01/2025 4:34 PM EDT [facility] Clarity, Urine Cloudy LAB URINALYSIS - AUTOMATED METHOD 03/01/2025 4:34 PM EDT [facility] Spec [place], Urine 1.008 1.005 - 1.030 LAB URINALYSIS - AUTOMATED METHOD 03/01/2025 4:34 PM EDT [facility] pH, Urine 6.5 5.0 - 8.0 LAB URINALYSIS - AUTOMATED METHOD 03/01/2025 4:34 PM EDT [facility] Protein, Urine 30(A) Negative mg/dL LAB URINALYSIS - AUTOMATED METHOD 03/01/2025 4:34 PM EDT [facility] Glucose, Urine Negative Negative mg/dL LAB URINALYSIS - AUTOMATED METHOD 03/01/2025 4:34 PM EDT [facility] Ketones, Urine Negative Negative mg/dL LAB URINALYSIS - AUTOMATED METHOD 03/01/2025 4:34 PM EDT [facility] Blood, Urine Large(A) Negative LAB URINALYSIS - AUTOMATED METHOD 03/01/2025 4:34 PM EDT [facility] Bilirubin, Urine Negative Negative LAB URINALYSIS - AUTOMATED METHOD 03/01/2025 4:34 PM EDT [facility] Urobilinogen, Urine 0.2 0.2 to 1.0 mg/dL LAB URINALYSIS - AUTOMATED METHOD 03/01/2025 4:34 PM EDT [facility] Leukocytes, Urine Large(A) Negative LAB URINALYSIS - AUTOMATED METHOD 03/01/2025 4:34 PM EDT [facility] Nitrite, Urine Negative Negative LAB URINALYSIS - AUTOMATED METHOD 03/01/2025 4:34 PM EDT [facility] RBC, Urine >50(A) 0 to 3 /HPF LAB URINALYSIS - AUTOMATED METHOD 03/01/2025 4:34 PM EDT [facility] WBC, Urine >50(A) 0 to 5 /HPF LAB URINALYSIS - AUTOMATED METHOD 03/01/2025 4:34 PM EDT [facility] Squamous Epithelial Cells 3 - 5 0 to 5 /HPF LAB URINALYSIS - AUTOMATED METHOD 03/01/2025 4:34 PM EDT [facility] Hyaline Casts 0 - 2 0 to 5 /LPF LAB URINALYSIS - AUTOMATED METHOD 03/01/2025 4:34 PM EDT [facility] Bacteria, Urine Negative Negative LAB URINALYSIS - AUTOMATED METHOD 03/01/2025 4:34 PM EDT [facility] Urine Urine specimen obtained by clean catch procedure / Unknown Non-blood Collection / Unknown 03/01/2025 4:15 PM EDT 03/01/2025 4:26 PM EDT Madonna Mani BENSON LAB URINE ORDERABLES Final Resul t [facility] [address] [place] [address] * (ABNORMAL) Urine Culture (03/01/2025 4:15 PM EDT) Only the most recent of3 resultswithin the time period is included. Culture 10,000 - 100,000 CFU/mL Enterobacter cloacae complex(A) CHRISTIANO 03/05/2025 12:12 PM EDT [facility] Comment: This isolate has been identified using the FDA Approved [employer] [place] System Edited result: Previously reported as [...] MICROBIOLOGY - GENERAL ORDER GIO Final Result [facility] [address] [place] [address] * (ABNORMAL) CBC and Differential (03/01/2025 4:08 AM EDT) Only the most recent of4 resultswithin the time period is included. WBC Count 6.83 3.70 - 10.30 10*3/uL LAB HEMATOLOGY METHOD 03/01/2025 4:54 AM EDT [facility] RBC Count 3.61(L) 3.90 - 5.20 10*6/uL LAB HEMATOLOGY METHOD 03/01/2025 4:54 AM EDT [facility] HGB 9.2(L) 11.2 - 15.7 g/dL LAB HEMATOLOGY METHOD 03/01/2025 4:54 AM EDT [facility] HCT 29.9(L) 34.0 - 45.0 % LAB HEMATOLOGY METHOD 03/01/2025 4:54 AM EDT [facility] Platelet Count 294 155 - 369 10*3/uL LAB HEMATOLOGY METHOD 03/01/2025 4:54 AM EDT [facility] MCV 83 79 - 98 fL LAB HEMATOLOGY METHOD 03/01/2025 4:54 AM EDT [facility] MCH 25.5(L) 26.0 - 32.0 pg LAB HEMATOLOGY METHOD 03/01/2025 4:54 AM EDT [facility] MCHC 30.8 30.7 - 35.5 g/dL LAB HEMATOLOGY METHOD 03/01/2025 4:54 AM EDT [facility] RDW 15.1(H) 11.5 - 14.5 % LAB HEMATOLOGY METHOD 03/01/2025 4:54 AM EDT [facility] MPV 9.2 8.8 - 12.5 fL LAB HEMATOLOGY METHOD 03/01/2025 4:54 AM EDT [facility] nRBC 0.0 <=0.0 per 100 WBCs LAB HEMATOLOGY METHOD 03/01/2025 4:54 AM EDT [facility] Differential Type Automated LAB HEMATOLOGY METHOD 03/01/2025 4:54 AM EDT [facility] Neutrophils % 56 % LAB HEMATOLOGY METHOD 03/01/2025 4:54 AM EDT [facility] Lymphocytes % 25 % LAB HEMATOLOGY METHOD 03/01/2025 4:54 AM EDT [facility] Monocytes % 11 % LAB HEMATOLOGY METHOD 03/01/2025 4:54 AM EDT [facility] Eosinophils % 6 % LAB HEMATOLOGY METHOD 03/01/2025 4:54 AM EDT [facility] Basophils % 1 % LAB HEMATOLOGY METHOD 03/01/2025 4:54 AM EDT [facility] Immature Granulocytes % 1 % LAB HEMATOLOGY METHOD 03/01/2025 4:54 AM EDT [facility] Neutrophils Absolute 3.86 1.60 - 6.10 10*3/uL LAB HEMATOLOGY METHOD 03/01/2025 4:54 AM EDT [facility] Lymphocytes Absolute 1.70 1.20 - 3.90 10*3/uL LAB HEMATOLOGY METHOD 03/01/2025 4:54 AM EDT [facility] Monocytes Absolute 0.74 0.30 - 0.90 10*3/uL LAB HEMATOLOGY METHOD 03/01/2025 4:54 AM EDT [facility] Eosinophils Absolute 0.44 0.00 - 0.50 10*3/uL LAB HEMATOLOGY METHOD 03/01/2025 4:54 AM EDT [facility] Basophils Absolute 0.05 0.00 - 0.10 10*3/uL LAB HEMATOLOGY METHOD 03/01/2025 4:54 AM EDT [facility] Immature Granulocytes Absolute 0.04 0.00 - 0.06 10*3/uL LAB HEMATOLOGY METHOD 03/01/2025 4:54 AM EDT [facility] Blood Venous blood specimen / Unknown Venipuncture / Unknown 03/01/2025 4:08 AM EDT 03/01/2025 4:42 AM EDT Narrative [facility] - 03/01/2025 4:54 AM EDT Therapeutic decision making should be based on absolute values, rather than percentages. us Madonna Singleton MD LAB BLOOD ORDERABLES Final Resul t Performing Organization Address City/[facility]/ZIP Co de Phone Number [facility] [address] [place] [address] * Phosphorus, Plasma (03/01/2025 4:08 AM EDT) Only the most recent of4 resultswithin the time period is included. Phosphorus, Plasma 4.4 2.5 - 4.5 mg/dL 03/01/2025 5:14 AM EDT [facility] Blood Venous blood specimen / Unknown Venipuncture / Unknown 03/01/2025 4:08 AM EDT 03/01/2025 4:43 AM EDT us Madonna Singleton MD LAB BLOOD ORDERABLES Final Resul t [facility] [address] [place] [address] * Magnesium, Plasma (03/01/2025 4:08 AM EDT) Only the most recent of5 resultswithin the time period is included. Magnesium, Plasma 2.0 1.9 - 2.4 mg/dL 03/01/2025 5:14 AM EDT [facility] Blood Venous blood specimen / Unknown Venipuncture / Unknown 03/01/2025 4:08 AM EDT 03/01/2025 4:43 AM EDT us Madonna Mani [facility]ENSON LAB BLOOD ORDERABLES Final Resul t [facility] [address] [place] [address] * (ABNORMAL) Basic Metabolic Panel, Plasma (03/01/2025 4:08 AM EDT) Only the most recent of4 resultswithin the time period is included. Glucose, Plasma 205(H) 74 - 99 mg/dL 03/01/2025 5:14 AM EDT [facility] BUN, Plasma 40(H) 8 - 23 mg/dL 03/01/2025 5:14 AM EDT [facility] Creatinine, Plasma 1.84(H) 0.60 - 1.10 mg/dL 03/01/2025 5:14 AM EDT [facility] BUN/Creatinine Ratio 22 03/01/2025 5:14 AM EDT [facility] Sodium, Plasma 125(L) 136 - 145 mmol/L 03/01/2025 5:14 AM EDT [facility] Potassium, Plasma 4.5 3.6 - 4.9 mmol/L 03/01/2025 5:14 AM EDT [facility] Chloride, Plasma 91(L) 97 - 107 mmol/L 03/01/2025 5:14 AM EDT [facility] CO2, Plasma 23 22 - 29 mmol/L 03/01/2025 5:14 AM EDT [facility] Anion Gap 11 6 - 16 mmol/L 03/01/2025 5:14 AM EDT [facility] Total Calcium, Plasma 8.8(L) 8.9 - 10.2 mg/dL 03/01/2025 5:14 AM EDT [facility] eGFRcr 30.1 mL/min/1.7 3m*2 03/01/2025 5:14 AM EDT [facility] Comment:Reported eGFRcr in m L/min/1.73m2 is based the CKD-EPI 2020 equation that does not use a race coefficient. Blood Venous blood specimen / Unknown Venipuncture / Unknown 03/01/2025 4:08 AM EDT 03/01/2025 4:43 AM EDT us Madonna Singleton MD LAB BLOOD ORDERABLES Final Resul t [facility] [address] [place] [address] * XR Panorex (02/27/2025 12:13 PM EDT) [...] in the posterior aspect of tooth #31. Bodega wear in tooth number 8, 9 and 23. No periapical lucency Procedure Note Lucas Cristobal MD - 02/27/2025 CLINICAL INDICATION: Odontogenic infection TECHNIQUE: XR PANOREX COMPARISON: None. FINDINGS: Rounded lucency in tooth #6. Aggressive destruction in the posterioraspect of tooth #31. Bodega wear in tooth number 8, 9 and [...] LAB HEMATOLOGY METHOD 02/26/2025 5:25 AM EDT [facility] RBC Count 4.00 3.90 - 5.20 10*6/uL LAB HEMATOLOGY METHOD 02/26/2025 5:25 AM EDT [facility] HGB 10.3(L) 11.2 - 15.7 g/dL LAB HEMATOLOGY METHOD 02/26/2025 5:25 AM EDT [facility] HCT 32.3(L) 34.0 - 45.0 % LAB HEMATOLOGY METHOD 02/26/2025 5:25 AM EDT [facility] Platelet Count 375(H) 155 - 369 10*3/uL LAB HEMATOLOGY METHOD 02/26/2025 5:25 AM EDT [facility] MCV 81 79 - 98 fL LAB HEMATOLOGY METHOD 02/26/2025 5:25 AM EDT [facility] MCH 25.8(L) 26.0 - 32.0 pg LAB HEMATOLOGY METHOD 02/26/2025 5:25 AM EDT [facility] MCHC 31.9 30.7 - 35.5 g/dL LAB HEMATOLOGY METHOD 02/26/2025 5:25 AM EDT [facility] RDW 15.5(H) 11.5 - 14.5 % LAB HEMATOLOGY METHOD 02/26/2025 5:25 AM EDT [facility] MPV 8.9 8.8 - 12.5 fL LAB HEMATOLOGY METHOD 02/26/2025 5:25 AM EDT [facility] nRBC 0.0 <=0.0 per 100 WBCs LAB HEMATOLOGY METHOD 02/26/2025 5:25 AM EDT [facility] Blood Venous blood specimen / Unknown Venipuncture / Unknown 02/26/2025 4:51 AM EDT 02/26/2025 5:12 AM EDT us Ludy Hill MD LAB BLOOD ORDERABLES Final Resul t [facility] [address] [place] [address] * (ABNORMAL) Renal function panel (02/26/2025 4:51 AM EDT) Glucose, Plasma 156(H) 74 - 99 mg/dL 02/26/2025 5:54 AM EDT [facility] BUN, Plasma 26(H) 8 - 23 mg/dL 02/26/2025 5:54 AM EDT [facility] Creatinine, Plasma 1.62(H) 0.60 - 1.10 mg/dL 02/26/2025 5:54 AM EDT [facility] BUN/Creatinine Ratio 16 02/26/2025 5:54 AM EDT [facility] Sodium, Plasma 133(L) 136 - 145 mmol/L 02/26/2025 5:54 AM EDT [facility] Potassium, Plasma 4.2 3.6 - 4.9 mmol/L 02/26/2025 5:54 AM EDT [facility] Chloride, Plasma 96(L) 97 - 107 mmol/L 02/26/2025 5:54 AM EDT [facility] CO2, Plasma 24 22 - 29 mmol/L 02/26/2025 5:54 AM EDT [facility] Anion Gap 13 6 - 16 mmol/L 02/26/2025 5:54 AM EDT [facility] Total Calcium, Plasma 8.9 8.9 - 10.2 mg/dL 02/26/2025 5:54 AM EDT [facility] Phosphorus, Plasma 3.8 2.5 - 4.5 mg/dL 02/26/2025 5:54 AM EDT [facility] Albumin, Plasma 3.5 3.5 - 5.2 g/dL 02/26/2025 5:54 AM EDT [facility] eGFRcr 35.1 mL/min/1.7 3m*2 02/26/2025 5:54 AM EDT [facility] Comment:Reported eGFRcr in m L/min/1.73m2 is based the CKD-EPI 2020 equation that does not use a race coefficient. Blood Venous blood specimen / Unknown Venipuncture / Unknown 02/26/2025 4:51 AM EDT 02/26/2025 5:13 AM EDT Ludy Hill MD LAB BLOOD ORDERABLES Final Resul t Performing Organization Address City/[facility] Co de Phone Number [facility] [address] [place] [address] * ECG Adult (02/25/2025 6:38 PM EDT) Only the most recent of4 resultswithin the time period is included. EKG DIAGNOSIS CLASS Abnormal MUSE ECG Ventricular Rate 68 BPM MUSE ECG Atrial Rate 68 BPM MUSE ECG OH Interval 198 ms MUSE ECG QRSD Interval 136 ms MUSE ECG QT Interval 450 ms MUSE ECG QTC Interval 478 ms MUSE ECG P [place] 71 degrees MUSE ECG R [place] 265 degrees MUSE ECG T Wave [place] 50 degrees MUSE ECG Diagnosis Sinus rhythm with marked sinus arrhythmia MUSE ECG Diagnosis Right bundle branch block MUSE ECG Diagnosis Abnormal ECG MUSE ECG Diagnosis MUSE ECG Diagnosis Confirmed by Karly Gracia ([id number]) on 02/26/2025 3:20:41 PM MUSE ECG 02/25/2025 6:38 PM EDT 02/26/2025 3:20 PM EDT Ludy Hill MD ECG ORDERABLES Final Result Performing Organization Address [facility] Co de Phone Number MUSE ECG * (ABNORMAL) Cystatin C (02/25/2025 1:36 AM EDT) Only the most recent of3 resultswithin the time period is included. Cystatin C 2.37(H) 0.61 - 0.95 mg/L 02/25/2025 2:27 AM EDT [facility] Blood Venous blood specimen / Unknown Venipuncture / Unknown 02/25/2025 1:36 AM EDT 02/25/2025 1:57 AM EDT Daniel Ralph MD LAB BLOOD ORDERABLES Final R esult Performing Organization Address City/[facility]/ZIP Co de Phone Number [facility] [address] [place] [address] * [place] [facility], E/M 30-74 MINUTES [...] reflects hypovolemia in setting of acute illness. Daniel Ralph MD IN CLINIC/BEDSIDE ORDERABLES Final Result * (ABNORMAL) Ionized calcium, whole blood (02/24/2025 1:01 AM EDT) Ionized Calcium, Whole Blood 4.4(L) 4.6 - 5.1 mg/dL LAB HEMATOLOGY METHOD 02/24/2025 1:14 AM EDT [facility] Blood Venous blood specimen / Unknown Venipuncture / Unknown 02/24/2025 1:01 AM EDT 02/24/2025 1:13 AM EDT Daniel Ralph MD LAB BLOOD ORDERABLES Final R esult [facility] [address] [place] [address] * (ABNORMAL) Procalcitonin (02/24/2025 1:01 AM EDT) Only the most recent of2 resultswithin the time period is included. Procalcitonin, Plasma 0.12(H) <0.09 ng/mL 02/24/2025 1:44 AM EDT [facility] Blood Venous blood specimen / Unknown Venipuncture / Unknown 02/24/2025 1:01 AM EDT 02/24/2025 1:06 AM EDT Narrative [facility] - 02/24/2025 1:44 AM [...] predict 28 day mortality risk. Please consult [email or web address] for more information. Test performed at [facility]. us Daniel Ralph MD LAB BLOOD ORDERABLES Final R esult Performing Organization Address City/[facility]/ZIP Co de Phone Number [facility] [address] [place] [address] * (ABNORMAL) Blood gas panel, venous (02/24/2025 1:01 AM EDT) Only the most recent of5 resultswithin the time period is included. pH, Venous 7.43 7.32 - 7.43 LAB HEMATOLOGY METHOD 02/24/2025 1:19 AM EDT [facility] pCO2, Venous 40 37 - 52 mmHg LAB HEMATOLOGY METHOD 02/24/2025 1:19 AM EDT [facility] pO2, Venous 143(H) 25 - 40 mmHg LAB HEMATOLOGY METHOD 02/24/2025 1:19 AM EDT [facility] SO2, Measured, Venous 98(H) 65 - 80 % LAB HEMATOLOGY METHOD 02/24/2025 1:19 AM EDT [facility] Base Excess, Venous 1.9 -2.0 - 3.0 mmol/L LAB HEMATOLOGY METHOD 02/24/2025 1:19 AM EDT [facility] Bicarbonate, Calculated, Venous 27(H) 22 - 26 mmol/L LAB HEMATOLOGY METHOD 02/24/2025 1:19 AM EDT [facility] Hematocrit, Whole Blood 27.7(L) 34.0 - 45.0 % LAB HEMATOLOGY METHOD 02/24/2025 1:19 AM EDT [facility] Sodium, Whole Blood 132(L) 136 - 145 mmol/L LAB HEMATOLOGY METHOD 02/24/2025 1:19 AM EDT [facility] Potassium, Whole Blood 4.3 3.6 - 4.9 mmol/L LAB HEMATOLOGY METHOD 02/24/2025 1:19 AM EDT [facility] Chloride, Whole Blood 99 97 - 107 mmol/L LAB HEMATOLOGY METHOD 02/24/2025 1:19 AM EDT [facility] Glucose, Whole Blood 154(H) 74 - 99 mg/dL LAB HEMATOLOGY METHOD 02/24/2025 1:19 AM EDT [facility] Lactate, Venous, Whole Blood 0.9 0.5 - 2.2 mmol/L LAB HEMATOLOGY METHOD 02/24/2025 1:19 AM EDT [facility] Ionized Calcium, Whole Blood 4.2(L) 4.6 - 5.1 mg/dL LAB HEMATOLOGY METHOD 02/24/2025 1:19 AM EDT [facility] Blood Venous blood specimen / Unknown Venipuncture / Unknown 02/24/2025 1:01 AM EDT 02/24/2025 1:13 AM EDT us Daniel Ralph MD LAB BLOOD ORDERABLES Final R esult [facility] [address] [place] [address] * (ABNORMAL) Comprehensive metabolic panel (02/24/2025 1:01 AM EDT) Only the most recent of2 resultswithin the time period is included. Glucose, Plasma 152(H) 74 - 99 mg/dL 02/24/2025 1:44 AM EDT [facility] BUN, Plasma 40(H) 8 - 23 mg/dL 02/24/2025 1:44 AM EDT [facility] Creatinine, Plasma 2.04(H) 0.60 - 1.10 mg/dL 02/24/2025 1:44 AM EDT [facility] BUN/Creatinine Ratio 20 02/24/2025 1:44 AM EDT [facility] Sodium, Plasma 132(L) 136 - 145 mmol/L 02/24/2025 1:44 AM EDT [facility] Potassium, Plasma 4.9 3.6 - 4.9 mmol/L 02/24/2025 1:44 AM EDT [facility] Chloride, Plasma 97 97 - 107 mmol/L 02/24/2025 1:44 AM EDT [facility] CO2, Plasma 22 22 - 29 mmol/L 02/24/2025 1:44 AM EDT [facility] Anion Gap 13 6 - 16 mmol/L 02/24/2025 1:44 AM EDT [facility] Total Calcium, Plasma 8.6(L) 8.9 - 10.2 mg/dL 02/24/2025 1:44 AM EDT [facility] Total Protein 6.9 6.3 - 7.9 g/dL 02/24/2025 1:44 AM EDT [facility] Albumin, Plasma 3.3(L) 3.5 - 5.2 g/dL 02/24/2025 1:44 AM EDT [facility] AST, Plasma 16 10 - 35 U/L 02/24/2025 1:44 AM EDT [facility] Comment:Hemolyzed, result ma y be falsely increased. ALT, Plasma 15 10 - 35 U/L 02/24/2025 1:44 AM EDT [facility] Alkaline Phosphatase, Plasma 105 46 - 142 U/L 02/24/2025 1:44 AM EDT [facility] Total Bilirubin, Plasma <0.2(L) 0.2 - 1.1 mg/dL 02/24/2025 1:44 AM EDT [facility] eGFRcr 26.6 mL/min/1.7 3m*2 02/24/2025 1:44 AM EDT [facility] Comment:Reported eGFRcr in m L/min/1.73m2 is based the CKD-EPI 2020 equation that does not use a race coefficient. Blood Venous blood specimen / Unknown Venipuncture / Unknown 02/24/2025 1:01 AM EDT 02/24/2025 1:06 AM EDT us Daniel Ralph MD LAB BLOOD ORDERABLES Final R esult Performing Organization Address [facility] Co de Phone Number [facility] [address] [place] [address] * Sodium, urine, random (02/23/2025 3:12 PM EDT) Sodium, Urine 31 mmol/L 02/23/2025 4:03 PM EDT [facility] Urine Urine specimen from urinary conduit / Unknown Non-blood Collection / Unknown 02/23/2025 3:12 PM EDT 02/23/2025 3:24 PM EDT us Daniel Ralph MD LAB URINE ORDERABLES Final R esult Performing Organization Address City/[facility] Co de Phone Number [facility] [address] [place] [address] * Osmolality, urine (02/23/2025 3:12 PM EDT) Osmolality, Urine 408 50 - 1,200 mOsm/kg 02/23/2025 3:59 PM EDT [facility] Urine Urine specimen from urinary conduit / Unknown Non-blood Collection / Unknown 02/23/2025 3:12 PM EDT 02/23/2025 3:23 PM EDT us Daniel Ralph MD LAB URINE ORDERABLES Final R esult Performing Organization Address City/[facility] Co de Phone Number [facility] [address] [place] [address] * (ABNORMAL) Sodium (02/23/2025 3:04 PM EDT) Only the most recent of4 resultswithin the time period is included. Pathologist [facility] Sodium, Plasma 129(L) 136 - 145 mmol/L 02/23/2025 3:44 PM EDT [facility] Blood Venous blood specimen / Unknown Venipuncture / Unknown 02/23/2025 3:04 PM EDT 02/23/2025 3:13 PM EDT us Daniel Ralph MD LAB BLOOD ORDERAB[place] [address] * Osmolality (02/23/2025 3:04 PM EDT) [facility] Osmolality, Serum 289 280 - 301 mOsm/Kg 02/23/2025 4:11 PM EDT [facility] Blood Venous blood specimen / Unknown Venipuncture / Unknown 02/23/2025 3:04 PM EDT 02/23/2025 3:13 PM EDT us Daniel Ralph MD LAB BLOOD ORDERAB[place] [address] * Streptococcus pneumoniae and Legionella Urinary Antigen (02/23/2025 11:05 AM EDT) [facility] Legionella pneumophila serogroup 1 Antigen Result (Urine) Negative Negative 02/24/2025 7:01 AM EDT [facility] Streptococcus pneumoniae Antigen Result (Urine) Negative Negative 02/24/2025 7:01 AM EDT [facility] Urine Urine specimen obtained by clean catch procedure / Unknown Non-blood Collection / Unknown 02/23/2025 11:05 AM EDT 02/23/2025 11:16 AM EDT us Daniel Ralph MD LAB MICROBIOLOGY - GENERAL O RDERABLES Final Result [facility] [address] [place] [address] * [place] [facility], E/M 30-74 MINUTES [...] Will optimize respiratory mechanics and volume status. Daniel Ralph MD IN CLINIC/BEDSIDE ORDERABLES Final Result * Vancomycin, random (02/23/2025 8:34 AM EDT) Only the most recent of2 resultswithin the time period is included. Vancomycin, Random, Plasma 25.9 ug/mL 02/23/2025 9:20 AM EDT [facility] Blood Venous blood specimen / Unknown Venipuncture / Unknown 02/23/2025 8:34 AM EDT 02/23/2025 8:50 AM EDT Daniel Ralph MD LAB BLOOD ORDERABLES Final R esult [facility] [address] [place] [address] * (ABNORMAL) Nasopharyngeal Respiratory Panel (02/23/2025 2:05 AM EDT) Human Rhinovirus/Ent erovirus PCR Result Detected( A) Not Detected 02/23/2025 5:07 AM EDT [facility] Swab Nasopharyngeal structure / Unknown Non-blood Collection / Unknown 02/23/2025 2:05 AM EDT 02/23/2025 3:06 AM EDT Narrative [facility] - 02/23/2025 5:07 AM [...] Respiratory PCR Panel is performed using the [employer] Medial[employer] instrument. This test is FDA approved for use with Nasopharyngeal swabs only. This test is used for clinical purposes. It should not be regarded as investigational or for research. The [facility] is certified under the Clinical Laboratory Improvement Amendments of 1988 (CLIA-88) as qualified to perform high complexity clinical laboratory testing. Daniel Ralph MD LAB MICROBIOLOGY - GENERAL O RDERABLES Final Result Performing Organization Address City/[facility]/ZIP Co de Phone Number [facility] [address] [place] [address] * (ABNORMAL) Methicillin Resistant Staphylococcus aureus (MRSA) by PCR (02/23/2025 2:05 AM EDT) Pathologist [facility] Methicillin Resistant Staphylococcus aureus (MRSA) by PCR Detected( A) Not Detected 02/23/2025 4:19 AM EDT [facility] Swab Both anterior nares / Unknown Non-blood Collection / Unknown 02/23/2025 2:05 AM EDT 02/23/2025 3:06 AM EDT Narrative [facility] - 02/23/2025 4:19 AM [...] Organization Address [facility] Co de Phone Number [facility] [address] [place] [address] * (ABNORMAL) Troponin T, High Sensitivity, 2 Hour, Plasma (02/23/2025 2:04 AM EDT) Troponin T, High Sensitivity, 2 Hour 37(H) <14 ng/L 02/23/2025 2:52 AM EDT [facility] Troponin Delta Interpretation Not Calculated 02/23/2025 2:52 AM EDT [facility] Comment:Specimen not collect ed within acceptable timeframe. Delta will not be calculated. Blood Venous blood specimen / Unknown Venipuncture / Unknown 02/23/2025 2:04 AM EDT 02/23/2025 2:24 AM EDT us Daniel Ralph MD LAB BLOOD ORDERABLES Final R esult Performing Organization Address [facility] Co de Phone Number [facility] [address] [place] [address] * Anti Xa Level Low Molecular Weight (02/23/2025 2:04 AM EDT) Anti Xa Level Low Molecular Weight Heparin 1.12 <2.00 IU/mL LAB COAGULATION METHOD 02/23/2025 2:44 AM EDT [facility] Blood Venous blood specimen / Unknown Venipuncture / Unknown 02/23/2025 2:04 AM EDT 02/23/2025 2:24 AM EDT Narrative [facility] - 02/23/2025 2:44 AM EDT Therapeutic Range: LMWH enoxaparin 1mg/kg/dose, 12hrs - peak (3-5 hours after dose): 0.5 - 1.0 IU/mL LMWH enoxaparin 1.5mg/kg/dose, 24hrs - peak (3-5 hours after dose): 1.0 - 2.0 IU/mL LMWH enoxaparin prophylaxis: Not established Daniel Ralph MD LAB BLOOD ORDERABLES Final R esult Performing Organization Address [facility]/ZIP Co de Phone Number [facility] [address] [place] [address] * (ABNORMAL) Troponin T, High Sensitivity, 0 Hour Plasma, Reflex to 2 Hour (02/23/2025 12:05 AM EDT) Troponin T, High Sensitivity, 0 Hour 40(H) <14 ng/L 02/23/2025 12:44 AM EDT [facility] Blood Venous blood specimen / Unknown Venipuncture / Unknown 02/23/2025 12:05 AM EDT 02/23/2025 12:17 AM EDT Daniel Ralph MD LAB BLOOD ORDERABLES Final R esult Performing Organization Address [facility] Co de Phone Number [facility] [address] [place] [address] * (ABNORMAL) Quantitative BAL/PAL/Bronch Wash Culture and Gram StainProtected Alveolar Lavage (02/23/2025 12:00 AM EDT) Culture [id number] CFU/mL Mixed upper respiratory jesus(A) 02/24/2025 12:09 PM EDT [facility] Comment:The organism value f or this result has been updated. These results have been appended to the previously preliminary verified report. Gram Stain Result Numerous Polymorphonuclear leukocytes(A) 02/24/2025 12:09 PM EDT [facility] Gram Stain Result Numerous Gram positive cocci in pairs(A) 02/24/2025 12:09 PM EDT [facility] Gram Stain Result Moderate Gram positive cocci in clusters(A) 02/24/2025 12:09 PM EDT [facility] Gram Stain Result Moderate Gram positive rods(A) 02/24/2025 12:09 PM EDT [facility] Protected Alveolar Lavage (Protected Alveolar Lavage) 02/23/2025 12:00 AM EDT 02/23/2025 1:17 AM EDT Daniel Ralph MD LAB MICROBIOLOGY - GENERAL O RDERABLES Final Result Performing Organization Address City/[facility] Co de Phone Number [facility] [address] [place] [address] * (ABNORMAL) N-Terminal Probnp (02/22/2025 10:03 PM EDT) Only the most recent of2 resultswithin the time period is included. N-Terminal, PROBNP, Plasma 1,542(H) 0 - 899 pg/mL 02/22/2025 10:48 PM EDT [facility] Blood Venous blood specimen / Unknown Venipuncture / Unknown 02/22/2025 10:03 PM EDT 02/22/2025 10:11 PM EDT us Bobby Parra MD LAB BLOOD ORDERABLES Final R esult Performing Organization Address City/[facility] [place] [address] * Maira auris Surveillance by PCR (02/22/2025 10:02 PM EDT) Maira auris PCR Result Not Detected Not Detected 02/24/2025 7:03 AM EDT [facility] Swab (Axilla and Groin) Non-blood Collection / Unknown 02/22/2025 10:02 PM EDT 02/22/2025 10:16 PM EDT Narrative [facility] - 02/24/2025 7:03 AM EDT This PCR assay was developed and its performance characteristics determined by [facility] as appropriate for clinical purposes. This assay has not been cleared or approved by the FDA, but is performed in a CLIA regulated laboratory that is qualified to perform high-complexity testing. Bobby Parra MD LAB MICROBIOLOGY - GENERAL O RDERABLES Final Result Performing Organization Address [facility] [place] [address] * (ABNORMAL) Multi Drug Resistance Test (02/22/2025 10:02 PM EDT) Culture Methicillin-Resist ant Staphylococcus aureus(AA) 02/24/2025 6:58 AM EDT [facility] Swab (Nares and Samantha Rectal) Non-blood Collection / Unknown 02/22/2025 10:02 PM EDT 02/22/2025 10:16 PM EDT Narrative [facility] - 02/24/2025 6:58 AM EDT This test was developed and its performance characteristics determined by the [facility] Clinical Microbiology Laboratory. Although the media is FDA-approved, it is not FDA-approved for all specimen types submitted. The FDA has determined that such clearance or approval is not necessary. This test is used for surveillance purposes. It should not be regarded as investigational or for research. The [facility] Clinical Microbiology Laboratory is certified under the Clinical Laboratory Improvement Amendments of 1988 (CLIA-88) as qualified to perform high complexity clinical laboratory testing. Bobby Parra MD LAB MICROBIOLOGY - GENERAL O RDERABLES Final Result Performing Organization Address [facility] Co de Phone Number [facility] [address] [place] [address] * Drug abuse screen (02/22/2025 10:01 PM EDT) Amphetamine Screen Urine Negative Cutoff: 500 ng/mL 02/23/2025 12:22 AM EDT [facility] Benzodiazepines Screen Urine Negative Cutoff: 200 ng/mL 02/23/2025 12:22 AM EDT [facility] Cannabinoid Screen Urine Negative Cutoff: 50 ng/mL 02/23/2025 12:22 AM EDT [facility] Cocaine Screen Urine Negative Cutoff: 300 ng/mL 02/23/2025 12:22 AM EDT [facility] Barbiturate Screen Urine Negative Cutoff: 200 ng/mL 02/23/2025 12:22 AM EDT [facility] Opiate Screen Urine Negative Cutoff: 300 ng/mL 02/23/2025 12:22 AM EDT [facility] Methadone Screen Urine Negative Cutoff: 300 ng/mL 02/23/2025 12:22 AM EDT [facility] Buprenorphine Screen Urine Negative Cutoff: 10 ng/mL 02/23/2025 12:22 AM EDT [facility] Fentanyl Screen Urine Presumptive positive. Confirmation by LC-MS/MS to follow. Cutoff: 1 ng/mL 02/23/2025 12:22 AM EDT [facility] Oxycodone Screen Urine Negative Cutoff: 100 ng/mL 02/23/2025 12:22 AM EDT [facility] Urine Urine specimen obtained by clean catch procedure / Unknown Non-blood Collection / Unknown 02/22/2025 10:01 PM EDT 02/22/2025 10:11 PM EDT Daniel Gordillo MD LAB URINE ORDERABLES Final Result [facility] [address] [place] [address] * (ABNORMAL) Fentanyl Urine Confirm (02/22/2025 10:01 PM EDT) Fentanyl 1(H) <1 ng/mL 02/24/2025 9:18 AM EDT [facility] Norfentanyl 2(H) <2 ng/mL 02/24/2025 9:18 AM EDT [facility] Urine Urine specimen obtained by clean catch procedure / Unknown Non-blood Collection / Unknown 02/22/2025 10:01 PM EDT 02/22/2025 10:11 PM EDT Narrative [facility] - 02/24/2025 9:18 AM EDT Drug analysis is confirmed by LC-MS/MS (LC Tandem Mass Spectrometry) on Urine specimens. This test was developed and its performance characteristics determined by [facility]. It has not been cleared or approved by the FDA. The laboratory is regulated under CLIA as qualified to perform high-complexity testing. This test is used for clinical purposes. Testing is performed at the [facility], Special [facility] Laboratory. us Daniel Gordillo MD LAB URINE ORDERABLES Final Result [facility] [address] [place] [address] * (ABNORMAL) POCT arterial blood gas gem (02/22/2025 9:05 PM EDT) pH, Arterial 7.45(H) 7.31 - 7.42 02/22/2025 9:06 PM EDT [facility] pCO2, Arterial 37 35 - 48 mm Hg 02/22/2025 9:06 PM EDT [facility] pO2, Arterial 86 >80 mm Hg 02/22/2025 9:06 PM EDT [facility] SO2, Arterial 98 94 - 98 % 02/22/2025 9:06 PM EDT [facility] FIO2 60.0 % 02/22/2025 9:06 PM EDT [facility] Base Excess, Arterial 1.7 -2 - 3 mmol/L 02/22/2025 9:06 PM EDT [facility] HCO3, Arterial 25.7 22 - 26 mmol/L 02/22/2025 9:06 PM EDT [facility] Total Hemoglobin, Arterial, Whole Blood 9.1(L) 11.2 - 15.7 g/dL 02/22/2025 9:06 PM EDT [facility] Hematocrit, Arterial 27.0(L) 34.0 - 45.0 % 02/22/2025 9:06 PM EDT [facility] Sodium, Arterial 125(L) 136 - 145 mmol/L 02/22/2025 9:06 PM EDT [facility] Potassium, Arterial 4.9 3.6 - 4.9 mmol/L 02/22/2025 9:06 PM EDT [facility] Comment:Hemolyzed, result ma y be falsely increased. Chloride, Whole Blood 95(L) 97 - 107 mmol/L 02/22/2025 9:06 PM EDT [facility] Glucose, Arterial 116(H) 74 - 99 mg/dL 02/22/2025 9:06 PM EDT [facility] Ionized Calcium, Arterial 4.8 4.6 - 5.1 mg/dL 02/22/2025 9:06 PM EDT [facility] Lactate, Arterial 0.8 0.5 - 1.6 mmol/L 02/22/2025 9:06 PM EDT [facility] Body Temperature 37.0 Celsius 02/22/2025 9:06 PM EDT [facility] pH, Temp Corrected, Arterial 7.45(H) 7.31 - 7.42 02/22/2025 9:06 PM EDT [facility] pCO2, Temp Corrected, Arterial 37 35 - 48 mm Hg 02/22/2025 9:06 PM EDT [facility] pO2, Temp Corrected, Arterial 86 >80 mm Hg 02/22/2025 9:06 PM EDT [facility] Storage Battery Charger ID Slim Morton 02/22/2025 9:06 PM EDT [facility] Blood, Arterial Whole blood specimen / Unknown 02/22/2025 9:05 PM EDT 02/22/2025 9:06 PM EDT Daniel Ralph MD LAB POINT OF CARE TE ST DOCKED DEVICE UNSOLICITED RESULTS Final Result Performing Organization Address City/[facility]/ZIP Co de Phone Number [facility] [address] [place] [address] * Blood Culture (Aerobic/Anaerobet Set) (02/22/2025 8:55 PM EDT) Culture No growth at day 5 02/27/2025 10:01 PM EDT [facility] Blood Structure of right hand / Unknown Venipuncture / Unknown 02/22/2025 8:55 PM EDT 02/22/2025 9:29 PM EDT Narrative [facility] - 02/27/2025 10:01 PM EDT Low blood volume submitted, results may be compromised Daniel Gordillo MD LAB MICROBIOLOGY - GENERAL ORDERABLES Final Result Performing Organization Address City/[facility]/ZIP Co de Phone Number [facility] [address] [place] [address] * Ionized calcium, serum (02/22/2025 8:36 PM EDT) Ionized Calcium, Serum 4.8 4.6 - 5.3 mg/dL LAB HEMATOLOGY METHOD 02/22/2025 9:42 PM EDT [facility] Blood Venous blood specimen / Unknown Venipuncture / Unknown 02/22/2025 8:36 PM EDT 02/22/2025 8:53 PM EDT us Bobby Parra MD LAB BLOOD ORDERABLES Final R esult [facility] [address] [place] [address] * XR Chest 1 View (02/22/2025 7:05 [...] <10 <10 mg/dL 02/22/2025 8:13 PM EDT [facility] Blood Venous blood specimen / Unknown Venipuncture / Unknown 02/22/2025 6:41 PM EDT 02/22/2025 8:00 PM EDT Narrative [facility] - 02/22/2025 8:13 PM EDT Enzymatic Assay: Performed on Hector Rufus. Daniel Gordillo MD LAB BLOOD ORDERABLES Final Result [facility] [address] [place] [address] * Thyroid Stimulating Hormone, Plasma (02/22/2025 6:41 PM EDT) Thyroid Stimulating Hormone, Plasma 1.03 0.40 - 4.20 uIU/mL 02/22/2025 7:24 PM EDT [facility] Blood Venous blood specimen / Unknown Venipuncture / Unknown 02/22/2025 6:41 PM EDT 02/22/2025 6:47 PM EDT Daniel Gordillo MD LAB BLOOD ORDERABLES Final Result Performing Organization Address [facility] Center/ZIP Co de Phone Number [facility] [address] [place] [address] * Free T4, Plasma (02/22/2025 6:41 PM EDT) Free T4, Plasma 1.3 0.8 - 1.7 ng/dL 02/22/2025 7:24 PM EDT [facility] Blood Venous blood specimen / Unknown Venipuncture / Unknown 02/22/2025 6:41 PM EDT 02/22/2025 6:47 PM EDT Daniel Gordillo MD LAB BLOOD ORDERABLES Final Result Performing Organization Address City/[facility]/ZIP Co de Phone Number [facility] [address] [place] [address] * (ABNORMAL) Hemoglobin A1c (02/22/2025 6:41 PM EDT) Hemoglobin A1c 9.2(H) <5.7 % 02/23/2025 1:40 PM EDT [facility] Blood Venous blood specimen / Unknown Venipuncture / Unknown 02/22/2025 6:41 PM EDT 02/22/2025 6:47 PM EDT Narrative [facility] - 02/23/2025 1:40 PM EDT HA1C Interpretive Data: Diagnosis of Diabetes: Diabetic > or = 6.5% Pre-diabetic 5.7 to 6.4% Non-diabetic < or = 5.6% Glycemic Targets for Type I and Type II Diabetics: Non- Adults <7.0% Adults <6.0% Children and Adolescents <7.5% Source: [place] [employer]. Standards of medical care in diabetes,2017. Diabetes Care.2017:40 (suppl 1):S1-S135. Bobby Parra MD LAB BLOOD ORDERABLES Final R esult [facility] [address] [place] [address] * (ABNORMAL) POCT venous blood gas gem (02/22/2025 6:37 PM EDT) pH, Venous 7.28(L) 7.32 - 7.43 02/22/2025 6:38 PM EDT [facility] pCO2, Venous 60(HH) 37 - 52 mm Hg 02/22/2025 6:38 PM EDT [facility] pO2, Venous 41(H) 25 - 40 mm Hg 02/22/2025 6:38 PM EDT [facility] SO2, Venous 72 65 - 80 % 02/22/2025 6:38 PM EDT [facility] Base Excess/Deficit, Venous 0.8 -2 - 3 mmol/L 02/22/2025 6:38 PM EDT [facility] HCO3, Venous 28.2(H) 22 - 26 mmol/L 02/22/2025 6:38 PM EDT [facility] Hemoglobin, Venous 9.2(L) 11.2 - 15.7 g/dL 02/22/2025 6:38 PM EDT [facility] Hematocrit, Venous 28.0(L) 34.0 - 45.0 % 02/22/2025 6:38 PM EDT [facility] Sodium, Venous 126(L) 136 - 145 mmol/L 02/22/2025 6:38 PM EDT [facility] Potassium, Venous 4.6 3.6 - 4.9 mmol/L 02/22/2025 6:38 PM EDT [facility] Comment:Hemolyzed, result ma y be falsely increased. POCT Chloride, Venous 94(L) 97 - 107 mmol/L 02/22/2025 6:38 PM EDT [facility] Glucose, Venous 139(H) 74 - 99 mg/dL 02/22/2025 6:38 PM EDT [facility] Ionized Calcium, Venous 4.9 4.6 - 5.1 mg/dL 02/22/2025 6:38 PM EDT [facility] Lactate, Venous 0.6 0.5 - 2.2 mmol/L 02/22/2025 6:38 PM EDT [facility] Body Temperature 37.0 Celsius 02/22/2025 6:38 PM EDT [facility] pH, Temp Corrected, Venous 7.28(L) 7.32 - 7.43 02/22/2025 6:38 PM EDT [facility] pCO2, Temp Corrected, Venous 60(HH) 37 - 52 mm Hg 02/22/2025 6:38 PM EDT [facility] pO2, Temp Corrected, Venous 41(H) 25 - 40 mm Hg 02/22/2025 6:38 PM EDT [facility] Storage Battery Charger ID Joao Jackson 02/22/2025 6:38 PM EDT [facility] Blood, Venous Whole blood specimen / Unknown 02/22/2025 6:37 PM EDT 02/22/2025 6:38 PM EDT us Generic Provider Poct LAB POINT OF CARE TEST DOCKED DEVICE UNSOLICITED RESULTS Final Result Performing Organization Address City/State/[facility] de Phone Number [facility] [address] [place] [address] * INTUBATION (02/22/2025 6:13 PM EDT) Narrative [...] Alysa ging 02/22/2025 12:5 4 PM EDT Result Tavon Carl MD IMG XR PROCEDURES Final Result * CT OUTSIDE IMAGES (02/22/2025 12:48 PM EDT) Only the most recent of3 resultswithin the time period is included. Anatomical Region Laterality Modality Computed Tomogra phy 02/22/2025 12:4 8 PM EDT Result Tavon Carl MD IMG CT PROCEDURES Final Result [...] AM EDT Comment:Pre-op diagnosis: Gross hematuria Result [facility] Ceci Mitchell MD LAB MICROBIOLOGY - GENERAL O RDERABLES Final Result [facility] [address] [place] [address] * OH AN ELECTIVE ENDOTRACHEAL AIRWAY, PB ANESTHESIA PLACEHOLDER (01/31/2025 9:58 AM EDT) Narrative Migue Seay CRNA - 01/31/2025 9:58 AM EDT Migue Seay CRNA 01/31/2025 10:45 AM Airway Date/Time: 01/31/2025 9:58 AM Reason: elective Airway not difficult General Information and Staff Patient location during procedure: OR FOOD DEMONSTRATOR: Migue Seay CRNA Performed: FOOD DEMONSTRATOR Patient Condition Indications for airway management: anesthesia [...] following split bolus administration of IV contrast, [id number], 150 mL. Reformatted images in the coronal [...] MD on 01/03/2025 3:33 PM Cayla Erazo LANGUAGE TEACHER, DNP IMG CT PROCEDURES Final Result [...] are demonstrated at the levels of the SERVICE ORDER TAKER, FENDER MECHANIC and DPA. Segmental pressures are within normal limits with a FENDER MECHANIC JASEN of 0.98 (138 mmHg) and a DPA JASEN of 1.28 (181 mmHg). Digit pressures are 115 mmHg. Left: AKA is noted. Multiphasic waveforms are demonstrated at the level of the SERVICE ORDER TAKER. 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 COMPARISON: None. FINDINGS: Right: Multiphasic waveforms are demonstrated at the levels of the SERVICE ORDER TAKER,FENDER MECHANIC and DPA. Segmental pressures are within normal limits with a FENDER MECHANIC ABIof 0.98 (138 mmHg) and a DPA JASEN of 1.28 (181 mmHg). Digit pressures yrt942 mmHg. Left: AKA is noted. Multiphasic waveforms are demonstrated at the level ofthe SERVICE ORDER TAKER. IMPRESSION: Right: Normal study; No evidence of [...] lt [facility] [address] [place] [address] * Cytology (04/10/2013 12:00 AM EDT) Specimen from axilla structure obtained by fine needle aspiration biopsy (specimen) 04/10/2013 04/10/2013 2:2 3 PM EDT Narrative [facility] - 04/10/2013 3:59 PM EDT [facility] MR #: [id number] [facility] [place], [place] [address] 1960 (Age: 52) FW Collect Date: 04/10/2013 00:00 Receipt Date: 04/10/2013 14:23 Page 1 DEPARTMENT OF PATHOLOGY AND LABORATORY MEDICINE CYTOPATHOLOGY REPORT Email: [email or web address] [phone] ATTENDING MD/Practitioner: Kimmie Aguilera MD Service: BCC [...] 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 Jonatan [...] RECEPTOR POSITIVE STATUS (ER POSITIVE) F: A; 05982 ASP INTER, 56914, 48425 SNOMED CODES: A; T42162 Y49593 R83893 D00421 Z71692 HR0359 P1149 WD9531 A resident has participated in this service. [...] Patient has decision-making capacity? Yes Care Teams Plant Maintenance Engineer Relationship Specialty Start Date End Date Vignesh Pickens MD [address] [place] [address] PCP - General 12/31/24 Cayla Erazo APRN, DNP [address] [facility] [address] [place] [address] Nurse Practitioner Urology 12/20/24
--- OUTSIDE RECORDS SUMMARY | 2025-03-31 17:04 | XMS_ITS | Clinical Summary ---
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) 02083368 (SNOMED CT) 10/25 Active 10/25 Helen Salazar Benign hypertension Presence of left artificial knee joint Z96.652 (ICD-10-CM ) 10/25 Active 10/25 Helen Salazar Presence of left artificial knee joint Hx of MRSA infection 805239318 (SNOMED CT) 10/25 Active 10/25 Helen Salazar H/O: infectious disease Hx of malignant neoplasm of breast 000727667 (SNOMED CT) 03/02 Resolved 03/02 Helen Salazar History of malignant neoplasm of breast Cellulitis of left leg 410688854 (SNOMED CT) 03/02 Resolved 03/02 Helen Salazar Cellulitis of lower limb 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 Z79.2 (ICD-10-CM ) 01/14 Inactive 01/14 Helen Salazar senior care (current) use of antibiotics Anemia in chronic diseases(docu ment disease) D63.8 (ICD-10-CM ) 01/14 Active 01/14 Helen Salazar Anemia in other chronic diseases classified elsewhere Chronic respiratory failure with hypoxia 09290427 (SNOMED CT) 01/14 Active 01/14 eHlen Salazar Acute respiratory failure COPD 07612819 (SNOMED CT) 01/14 Active 01/14 Helen Salazar Chronic obstructive pulmonary disease DM Type II E11.9 (ICD-10-CM ) 01/14 Inactive 01/14 Helen Salazar Type 2 diabetes mellitus without complications Benign Essential Hypertension 98085394 (SNOMED CT) 01/14 Removed 01/14 Helen Salazar Benign hypertension Acquired absence of left knee joint 786727485 (SNOMED CT) 03/02 Resolved 03/02 Helen Salazar History of operative procedure on knee Obesity due to excess calories E66.09 (ICD-10-CM ) 03/02 Resolved 03/02 Helen Salazar Other obesity due to excess calories senior care (current) use of anticoagulant s Z79.01 (ICD-10-CM ) 03/02 Resolved 03/02 Helen Salazar 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) use of anticoagulants Staph epi infection B95.7 (ICD-10-CM ) 03/02 Resolved 03/02 Helen Salazar Other staphylococcus as the cause of diseases classified elsewhere Diarrhea 49162921 (SNOMED CT) 09/28 Resolved 09/28 Helen Salazar Diarrhea Staph hominis infection B95.7 (ICD-10-CM ) 09/28 Resolved 09/28 Helen Salazar Other staphylococcus as the cause of diseases classified elsewhere Staph hominis infection B95.7 (ICD-10-CM ) 09/28 Removed 09/28 Arie Dougherty MD Other staphylococcus as the cause of diseases classified elsewhere Diarrhea 89654697 (SNOMED CT) 09/28 Removed 09/28 Arie Dougherty MD Diarrhea Acquired absence of left knee joint 471914025 (SNOMED CT) 03/02 Removed 03/02 Helen Salazar History of operative procedure on knee Cellulitis of left leg 197346189 (SNOMED CT) 03/02 Removed 03/02 Helen Salazar Cellulitis of lower limb Knee, left, subsequent encounter, infection/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 T84.54xD (ICD-10-CM ) 03/02 Active 03/02 Helen Salazar Infection and inflammatory reaction due to internal left knee prosthesis, subsequent encounter Staph epi infection B95.7 (ICD-10-CM ) 03/02 Removed 03/02 Helen Salazar Other staphylococcus as the cause of diseases classified elsewhere senior care (current) use of anticoagulant s Z79.01 (ICD-10-CM ) 03/02 Removed 03/02 Helen Salazar senior care (current) use of anticoagulants Obesity due to excess calories E66.09 (ICD-10-CM ) 03/02 Removed 03/02 Helen Salazar Other obesity due to excess calories Hx of malignant neoplasm of breast 101315438 (SNOMED CT) 03/02 Removed 03/02 Helen Salazar History of malignant neoplasm of breast Medications Medication Instructions Start Date Stop Date Generic Name NDC Provider DOXYCYCLINE MONOHYDRATE 100 MG CAPS Take 1 capsule by mouth twice a day 10/25 doxycycline monohydrate 47772806890 Arie Dougherty MD ceftriaxone recon soln 2GM IV Q24hrs [facility] 02/18 ceftriaxone recon soln Temi Norris Cubicin RF 800mg IV Q48hrs [facility] 02/18 daptomycin Temi Norris DOXYCYCLINE MONOHYDRATE 100 MG CAPS Take 1 capsule by mouth twice a day 02/03 doxycycline monohydrate 88065396909 Arie Dominguez RF 800mg IV Q48hrs [facility] 02/18 daptomycin Nubia Ervin ceftriaxone recon soln 2GM IV Q24hrs [facility] 02/18 ceftriaxone recon soln Nubiadeidre Ervin IPRATROPIUM-ALBUT MIKE 0.5-2.5 (3) MG/3ML SOLN 3 ml by mouth PRN 01/27 ipratropium-albut mike 38015765555 Nubia Minor Gaviscon 95-358 mg/15 mL suspension by mouth four times a day 30 mL aluminum hydrox-magnesium carb 15164731201 Nubia Minor IPRATROPIUM-ALBUT MIKE 0.5-2.5 (3) MG/3ML SOLN using nebulizer every six hours PRN ipratropium-albut mike 34306570016 Nubia Minor BASAGLAR KWIKPEN 100 UNIT/ML SOPN subcutaneously once a day insulin glargine 28093365709 Nubia Minor MUCUS RELIEF D 60-600 MG [id number] by mouth twice a day pseudoephedrine-g uaifenesin 84186794867 Nubia Minor VITAMIN B-12 100 MCG TABS by mouth once a day cyanocobalamin (vitamin b-12) 05463967612 Nubia Minor PERCOCET 5-325 MG TABS 1-2 tablet every four to six hours oxycodone-acetami nophen 18818931969 Nubia Minor BIOTIN 1000 MCG TABS by mouth once a day biotin 66768801958 Nubia Minor GABAPENTIN 800 MG TABS by mouth four times a day as needed gabapentin 01796434145 Nubia Minor ATORVASTATIN CALCIUM 40 MG TABS by mouth every morning Hold while on daptomycin atorvastatin 46806464895 Nubia Minor FERROUS SULFATE 325 (65 Fe) MG TABS by mouth once a day ferrous sulfate 54821402177 Nubia Minor VENLAFAXINE HCL 75 MG TABS by mouth twice a day venlafaxine 61424278674 Nubia Minor CITRACAL MAXIMUM 315-6.25 MG-MCG TABS by mouth twice a day calcium citrate-vitamin d3 43857214784 Nubia Poncho JANUMET XR 50-1000 MG [id number]-[id number] by mouth twice a day sitagliptin phos-metformin 93505590874 Nubia Minor GNP HYDROCORTISONE/AL OE 1 % CREA Apply to skin twice a day as needed hydrocortisone acetate 99543209297 Nubia Minor MS CONTIN 15 MG CR-TABS by mouth twice a day morphine 65389085137 Nubia Minor OMEPRAZOLE 20 MG TBEC 2 tablet by mouth once a day omeprazole 92057724577 Nubia Minor DOXYCYCLINE HYCLATE 100 MG TABS Take 1 tablet by mouth twice a day 01/11 doxycycline hyclate 21753251191 Nubia Minor CARVEDILOL 12.5 MG TABS by mouth twice a day carvedilol 04671047038 Nubia Minor PROMETHAZINE HCL 25 MG TABS by mouth three times a day as needed promethazine 95389310833 Nubia Minor TIZANIDINE HCL 4 MG TABS by mouth three times a day as needed tizanidine 54874586337 Nubia Minor LACTULOSE 10 GM/15ML SOLN 30 ml by mouth as needed lactulose 41622235930 Nubia Minor COLACE 100 MG CAPS by mouth twice a day as needed docusate sodium 51447692249 Nubia Minor XARELTO TABLET 15 mg 15 mg Take 1 by mouth once a day XARELTO TABLET 15 mg 15 mg Nubia Minor ANASTROZOLE 1 MG TABS by mouth once a day anastrozole 99507011333 Nubia Minor ACETAMINOPHEN 500 MG TABS by mouth every six hours PRN acetaminophen 78730511375 Nubia Minor LOPERAMIDE HCL 2 MG CAPS by mouth once a day PRN loperamide 58249157660 Nubia Minor ASCORBIC ACID 500 MG TABS by mouth 0.5 tab am and 0.5 tab pm ascorbic acid (vitamin c) 53751862660 Nubia Minor BACLOFEN 10 MG TABS by mouth three times a day baclofen 40153313603 Nubia Minor BREO ELLIPTA 100-25 MCG/ACT AEPB every morning fluticasone furoate-vilantero l 72921632032 Nubia Minor BUMETANIDE 2 MG TABS by mouth twice a day bumetanide 58218038371 Nubia Minor CALCIUM 600 1500 (600 Ca) MG TABS by mouth twice a day calcium carbonate 29557711723 Nubia Minor D3 HIGH POTENCY 10 MCG (400 UNIT) TABS by mouth 2.5 units am and 2.5 units pm cholecalciferol (vitamin d3) 49358606352 Nubia Minor PLAVIX 75 MG TABS by mouth every morning clopidogrel 41236574762 Nubia Minor VITAMIN B-12 1000 MCG TABS by mouth every morning cyanocobalamin (vitamin b-12) 34156053286 Nubia Minor FLONASE ALLERGY RELIEF 50 MCG/ACT SUSP intranasally every morning fluticasone propionate 04790954554 Nubia Minor FOSAMAX 70 MG TABS by mouth once a week alendronate 04581750821 Nubia Minor GLIPIZIDE ER 2.5 MG [id number]-[id number] by mouth every morning 0.5 tab glipizide 95942987172 Nubia Minor LANTUS SOLOSTAR 100 UNIT/ML SOPN 8 unit subcutaneously every night insulin glargine 18654410088 Nubia Minor IPRATROPIUM-ALBUT MIKE 0.5-2.5 (3) MG/3ML SOLN 3 ml by mouth PRN 01/27 ipratropium-albut mike 69268482049 Nubia Minor JARDIANCE 10 MG TABS by mouth every morning empagliflozin 46437272650 Nubia Minor MAGNESIUM OXIDE 400 MG TABS by mouth twice a day magnesium oxide 65507997278 Nubia Minor METFORMIN HCL 1000 MG TABS by mouth twice a day metformin 91385269223 Nubia Minor MULTI-VITAMIN HP/MINERALS CAPS by mouth once a day multivitamin,tx-m inerals 40832035956 Nubia Minor ONDANSETRON HCL 4 MG TABS by mouth twice a day PRN ondansetron hcl 54417415275 Nubia Minor PANTOPRAZOLE SODIUM 20 MG TBEC by mouth once a day pantoprazole 25506731540 Nubia Minor PREGABALIN 50 MG CAPS by mouth three times a day pregabalin 47633999742 Nubia Isaac SENNA 8.6 MG TABS by mouth 2 tabs PRN sennosides 26499469471 Nubia Isaac SPIRONOLACTONE 50 MG TABS by mouth once a day spironolactone 77252151045 Nubia Isaac TRAZODONE HCL 150 MG TABS by mouth once a day 2 tabs trazodone 49015359806 Nubia Isaac VALSARTAN 80 MG TABS by mouth twice a day valsartan 10921842546 Nubia Isaac VENLAFAXINE HCL ER 150 MG [id number]-[id number] by mouth every morning venlafaxine 58714604659 Nubia Isaac VANCOMYCIN HCL SOLR 1gm IV q 12 x 6wks [facility] [phone] 10/05 VANCOMYCIN HCL SOLR 03162775287 Libby Cabello JIMI MS CONTIN 15 MG CR-TABS by mouth twice daily 01/11 MORPHINE SULFATE 38822581093 Arie Dougherty MD PERCOCET 5-325 MG TABS 1-2 tabs, every four to six hours, do not exceed 4000mg of acetaminophen per day 01/11 OXYCODONE-ACETAMI NOPHEN 25526968690 Arie Dougherty MD [facility] IRON 325 (65 Fe) MG TABS by mouth daily 01/11 FERROUS SULFATE 07246262203 Arie Dougherty MD COLACE 100 MG CAPS by mouth twice daily as needed 02/19 DOCUSATE SODIUM 84708745940 Arie Dougherty MD DOXYCYCLINE HYCLATE 100 MG TABS take 1 tab po BID 02/19 DOXYCYCLINE HYCLATE 20494779876 Arie Dougherty MD XARELTO TABLET Take one by mouth once daily. 01/11 RIVAROXABAN TABS 01617388622 Arie Dougherty MD COUMADIN 5 MG ORAL TABLET by mouth, AC dinner 10/17 WARFARIN SODIUM 43939996385 Arie Dougherty MD VANCOMYCIN HCL SOLR 1gm IV q 12 x 6wks [facility] [phone] 08/22 VANCOMYCIN HCL SOLR 02529978676 [facility] VANCOMYCIN HCL SOLR 750 mg IV q 12 x 6wks [facility] [phone] 03/31 VANCOMYCIN HCL SOLR 16487248744 [facility] VANCOMYCIN HCL SOLR 750 mg IV q 12 x 6wks [facility] [phone] 08/22 VANCOMYCIN HCL SOLR 77106897156 Daily Lewis RN VENLAFAXINE HCL 75 MG TABS by mouth twice daily 01/11 VENLAFAXINE HCL 54101566374 Kulwant P PROMETHAZINE HCL 25 MG TABS by mouth three times a day as needed 01/11 PROMETHAZINE HCL 94076536051 Kulwant P B-12 100 MCG TABS by mouth daily 09/29 CYANOCOBALAMIN 91991648359 Kulwant P JANUMET XR 50-1000 MG [id number]-MQI by mouth twice daily 01/11 SITAGLIPTIN-METFO RMIN HCL 48942218820 Kulwant P TIZANIDINE HCL 4 MG TABS by mouth three times a day as needed 01/11 TIZANIDINE HCL 83072865894 Kulwant P GABAPENTIN 800 MG TABS by mouth four times a day as needed 01/11 GABAPENTIN 76496581192 Kulwant P CARVEDILOL 12.5 MG TABS by mouth twice daily 01/11 CARVEDILOL 24845052831 Kulwant P ANASTROZOLE 1 MG TABS by mouth daily 01/11 ANASTROZOLE 43297469877 Kulwant P CITRACAL MAXIMUM 315-6.25 MG-MCG TABS by mouth twice daily 01/11 CALCIUM CITRATE-VITAMIN D 39879158875 Kulwant P [facility] OMEPRAZOLE 20 MG TBEC 2 tabs by mouth once daily 01/11 OMEPRAZOLE 11998629723 Kulwant P BIOTIN 1000 MCG TABS by mouth daily 01/11 BIOTIN 11167653174 Kulwant P ATORVASTATIN CALCIUM 40 MG TABS by mouth at bedtime 01/11 ATORVASTATIN CALCIUM 74525037181 Kulwant P COUMADIN 5 MG ORAL TABLET by mouth, AC dinner 05/19 WARFARIN SODIUM 95429407632 Kulwant P LACTULOSE SOLN 30mL by mouth as needed 02/19 LACTULOSE SOLN 51551641741 Kulwant P HYDROCORTISONE ACETATE 1 % CREA apply topically twice a day as needed 10/25 HYDROCORTISONE ACETATE 63508678442 Kulwant P MS CONTIN 15 MG CR-TABS by mouth twice daily 11/20 MORPHINE SULFATE 42613061571 Kulwant P [facility] IRON 325 (65 Fe) MG TABS by mouth daily 11/20 FERROUS SULFATE 46066698968 Kulwant P COLACE 100 MG CAPS by mouth twice daily as needed 02/19 DOCUSATE SODIUM 18637316566 Kulwant P PERCOCET 5-325 MG TABS 1-2 tabs, every four to six hours, do not exceed 4000mg of acetaminophen per day 11/20 OXYCODONE-ACETAMI NOPHEN 65043114160 Kulwant P VANCOMYCIN HCL SOLR 1gm IV q 12 x 6wks [facility] [phone] 08/22 VANCOMYCIN HCL SOLR 88504187602 [facility] Medications Administered No information available. Allergies, Adverse [...] or Plasma Office Visit: rm #8 DIET DIRECTOR OF ANALYTICS yes Dietary management education, guidance, and counseling [...] Oral Antibiotic CPT-ca Continue IV antibiotics 2022 CPT-58803 CMP [id number] CBC with Differential 2022 CPT-32021 C- reactive protein [id number], [id number] CPK CPT-J7030 IV Fluids CPT-sl STAT Labs CPT-sl STAT Labs CPT-sl STAT Labs CPT-93199 C- reactive protein CPT-20257 Sedimentation Rate (ESR) 201 02/20/04 CPT-51991 Vancomycin Trough CPT-25921 CMP [id number] CBC with Differential 2015 CPT-99181 C- reactive protein CPT-41066 Sedimentation Rate (ESR) 201 01/31/26 CPT-ca Continue IV antibiotics 2015 CPT-wpc Weekly PICC Line Care 09/28 CPT-64922 CMP [id number] CBC with Differential 2015 CPT-43796 Vancomycin Trough CPT-53097 C- reactive protein CPT-18214 Sedimentation Rate (ESR) 201 01/31/07 CPT-cdpcr C-Diff PCR CPT-isi New IV antibiotic CPT-88304 PICC Line Insertion CPT-10659 [facility] [id number] CBC with Differential 2015 CPT-52845 C- reactive protein CPT-17415 Sedimentation Rate (ESR) 201 01/30/30 CPT-DC Discontinue IV antibiotics 2 CPT-PICREM PICC Removal CPT-ca Continue IV antibiotics 2015 CPT-11898 CMP [id number] CBC with Differential 2015 CPT-89798 C- reactive protein CPT-03228 Sedimentation Rate (ESR) 201 01/27/01 CPT-07153 Vancomycin Trough CPT-ca Continue IV antibiotics 2015 CPT-47925 CMP [id number] CBC with Differential 2015 CPT-41027 C- reactive protein CPT-81770 Sedimentation Rate (ESR) 201 01/27/20 CPT-01119 Vancomycin Trough CPT-ca Continue IV antibiotics 2015 [...]
--- OUTSIDE RECORDS SUMMARY | 2025-03-31 17:05 | XMS_ITS | Encounter Summary ---
Author Organization [facility] Address [address] [place] [address] Care Team Providers Care Layout Mechanic Name Role Phone Cayla Erazo APRN, DNP Unavailable Vignesh Pickens MD Primary Care Provider [phone] Encounter Details Date Type Department Care Team [...] drink first t rodríguez in the morning ([employer] TECH) to steady your nerves or to [...] No Risk Indicated 01/31/2025 8:50 AM EDT Jovtia Orosco RN * Question Answer Date of [...] Description 04/04/2025 10:40 AM EDT Office Visit [facility] [address] [place] [address] Eugenia Jimenez, STRAPPER OPERATOR [address] [place] [address] 05/16/2025 8:00 AM EDT Office Visit [facility] Orlando Bartlett [address], [address] [place] [address] Karly Gracia MD [address] [place] [address] 06/07/2025 1:00 PM EDT Office Visit [facility] [address] [place] [address] Tom Iraheta MD [address] [place] [address] documented as of this encounter [...] documented as of this encounter Care Teams Layout Mechanic Relationship Specialty Start Date End Date Vignesh Pickens MD [address] [id number] PCP - General 12/31/24 Cayla Erazo APRN, [place] [id number] [place] [address] Nurse Practitioner Urology 12/20/24 documented as of this encounter
--- OUTSIDE RECORDS SUMMARY | 2025-03-31 17:05 | XMS_ITS | Clinical Summary ---
Author Organization [employer] ([place], [place], [place], [place]) Address [address] [place] [address] Care Team Providers Care Magazine Repairer Name Role Phone [facility], Provider Not In The [...] Do you speak a language other than Cameroonian at ho me? No 12/09/2023 Do you [...] A1C 11.7 % 11/25/2023 5:31 PM EDT [facility] Comment: Hemoglobin A1C levels are related to mean glucose during the preceding 2-3 months. Less than 7% demonstrates glycemic control in diabetic patients. Hemoglobin AlC % Suggested Diagnosis > or = 6.5 Diabetic 5.7 - 6.4 Prediabetic <5.7 Non-diabetic eAVG Glucose 289.09 mg/dL 11/25/2023 5:31 PM EDT [facility] Blood Venipuncture / Unknown 11/25/2023 11:24 AM EDT 11/25/2023 1:46 PM EDT us Radha Ram MD LAB BLOOD ORDERABLES Fi nal Result [facility] [address] [phone] from Last 3 Months or Most Recently Relevant to Health Maintenance Insurance [facility] [place] [id number] MEDICARE PART A B MEDICAID OF [place] Advance Directives For more information, please contact: [phone] * Full Code (Latest Code Status on [...] Name Relationship Healthcare Agent Relationshi p Communication [place] Dante Sister First Alternate Healthcare Decision-Maker Care Teams Magazine Repairer Relationship Specialty Start Date End Date [facility], Provider Not In The System, [place] [address] PCP - General 10/05/23
--- OUTSIDE RECORDS SUMMARY | 2025-03-31 17:05 | XMS_ITS | Clinical Summary ---
Author Organization [facility] Address [address] [place] [address] Phone Care Team Providers Care Emissions Repair Technician Name Role Phone Foreign Spangler MD, Andrei Codorus Primary Care Provid er Allergies No known [...] [place] A [place] B [place] [id number] Care Teams Emissions Repair Technician Relationship Specialty Start Date End Date Andrei Carrasquillo Sr., MD [address] [place] [address] PCP - General Presiding Steward 03/17/16
--- OUTSIDE RECORDS SUMMARY | 2025-03-31 17:05 | XMS_ITS | Encounter Summary ---
Author Organization [facility] Address [address] [place] [address] Care Team Providers Care Mixer Driver Name Role Phone Cayla Erazo APRN, DNP Unavailable [phone] Vignesh Pickens MD Primary Care Provider [phone] Encounter Details Date Type Department Care Team (Late st Contact Info) Description 03/27/2025 Telephone [facility] [address] [place] [address] Doug Chapman MD [address] [place] [address] Social History Tobacco Use Types [...] time in the past 12 m [facility], were you homeless or living in a [...] drink first t rodríguez in the morning (EYE-EVENT ORGANIZER) to steady your nerves or to get [...] Concern/Question Reason for Call: LIZANDRO López from [facility] calling to let you know that patient is being admitted with UTI after failed treatment They did a CT scan in ER and it showed bilat hydronephrosis with thickening of urinary bladder/ with retroperitoneal adenopathy underlying neoplasm not excluded. Recommend cysto. Best contact number: Other: [phone] ext [phone] Optimal time of day to [...] will receive notification of the communication/outcome via [employer]. documented in this encounter Plan of Treatment Upcoming Encounters Date Type Department Care Team (Late st Contact Info) Description 04/04/2025 10:40 AM EDT Office Visit [place] [facility] [address] [place] [address] Eugenia Jimenez APRN [address] [place] [address] 05/16/2025 8:00 AM EDT Office Visit [facility] [place] [address] [facility], [address] [place] [address] Karly Gracia MD [address] [place] [address] 06/07/2025 1:00 PM EDT Office Visit [facility] [address] [place] [address] Tom Iraheta MD [address] [place] [address] documented as of this encounter [...] documented as of this encounter Care Teams Mixer Driver Relationship Specialty Start Date End Date Vignesh Pickens MD [address] [place] [address] PCP - General 12/31/24 Cayla Erazo APRN, DNP [address] [facility] [address] [place] [address] Nurse Practitioner Urology 12/20/24 documented as of this encounter
--- OUTSIDE RECORDS SUMMARY | 2025-03-31 17:05 | XMS_ITS | Encounter Summary ---
Author Organization Healthcare Address [address] [place] [address] Care Team Providers Care Coat Maker Name Role Phone Daniel Barba MD Primary Care Provider [phone] Judy Huff LOCAL OWNER OPERATOR TRUCK DRIVER Unavailable Unavailabl Cayla Louie APRN, DNP Unavailable [phone] Vignesh Pickens MD Primary Care Provider + [phone] Encounter Details Date Type Department Care Team (Late Contact Info) Description 08/11/2022 Orders Only External Location [address] [place] [address] Provider, External Social History Tobacco Use Types [...] Department Care Team (Late Contact Info) Description 04/04/2025 10:40 AM EDT Office Visit [facility] [address] [place] [address] Eugenia Jimenez APRN [address] [place] [address] 05/16/2025 8:00 AM EDT Office Visit [facility] [place] [address] [facility], [address] [place] [address] Karly Gracia MD [address] [place] [address] 06/07/2025 1:00 PM EDT Office Visit [facility] [address] [place] [address] Tom Iraheta MD [address] [place] [address] documented as of this encounter [...] documented as of this encounter Care Teams Coat Maker Relationship Specialty Start Date End Date Daniel Barba MD [address] [place] [address] PCP - General 01/02/21 12/30/24 Vignesh Pickens MD [address] [place] [address] PCP - General 12/31/24 Judy Huff LPN [facility] TCM Nurse 08/24/24 08/24/24 Cayla Erazo, LIZANDRO, DNP [address] [address] Nurse Practitioner Urology 12/20/24 documented as of this encounter
--- OUTSIDE RECORDS SUMMARY | 2025-03-31 17:05 | XMS_ITS | Encounter Summary ---
Author Organization [facility] Address [address] [place] [address] Care Team Providers Care Felling Machine Operator Name Role Phone Daniel Barba MD Primary Care Provider [phone] Judy Huff FLAT FINISHER Unavailable Unavailabl e Cayla Erazo APRN, DNP Unavailable [phone] Vignesh Pickens MD Primary Care Provider + [phone] Encounter Details Date Type Department Care Team (Late st Contact Info) Description 07/28/2022 Orders Only External Location [address] [place] [address] Gregg Morgan MD [address] [place] [address] Social History Tobacco Use Types [...] Description 04/04/2025 10:40 AM EDT Office Visit [facility] [address] [place] [address] Eugenia Jimenez APRN [address] [place] [address] 05/16/2025 8:00 AM EDT Office Visit [facility] [place] [address] [facility], [address] [place] [address] Karly Graica MD [address] [place] [address] 06/07/2025 1:00 PM EDT Office Visit [facility] [address] [place] [address] Tom Iraheta MD [address] [place] [address] documented as of this encounter Procedures Procedure Name Priority Date/Time Associated Diagnosis Comments POC US ECHOCARDIOGRAPHY COMPLETE W DOPPLER AND COLOR 07/28/2022 1:42 PM EST documented in this encounter Results * POC US Echocardiography Complete W Doppler and Color (07/28/2022 1:42 PM EST) Anatomical Region Laterality Modality Ultrasound 07/28/2022 1:42 PM EST us rGegg Morgan MD IMG POINT OF CARE ULTRASOUND Fin al Result documented in this encounter Visit Diagnoses Not on filedocumented in this encounter Additional Health Concerns Infection Onset Date Last Indicated Resolved Time Respiratory Rule-Out 08/15/2024 08/15/2024 024 6:31 PM EST 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 Respiratory Rule-Out 02/22/2025 02/23/2025 025 5:07 AM EDT Rhinovirus 02/23/2025 02/23/2025 documented as of this encounter Care Teams Felling Machine Operator Relationship Specialty Start Date End Date Daniel Barba MD [address] [place] [address] PCP - General 01/02/21 12/30/24 Vignesh Pickens MD [address] [place] [address] PCP - General 12/31/24 Judy Huff, [facility] TCM Nurse 08/24/24 08/24/24 Cayla Erazo, LIZANDRO, DNP [address] [place] [address] Nurse Practitioner Urology 12/20/24 documented as of this encounter
--- OUTSIDE RECORDS SUMMARY | 2025-03-31 17:06 | XMS_ITS | Encounter Summary ---
Author Organization [facility] Address [address] [place] [address] Care Team Providers Care Eligibility Technician Name Role Phone Cayla Erazo APRN, DNP Unavailable [phone] Vignesh Pickens MD Primary Care Provider [phone] Encounter Details Date Type Department Care Team [...] first t rodríguez in the morning (EYE-MANAGER STORY) to steady your nerves or to get [...] Description 04/04/2025 10:40 AM EDT Office Visit [place] [facility] [address] [place] [address] Eugenia Jimenez APRN [address] [address] 05/16/2025 8:00 AM EDT Office Visit [facility] [place] [address] [facility], [address] [place] [address] Karly Gracia MD [address] [place] [address] 06/07/2025 1:00 PM EDT Office Visit [facility] [address] [facility] [address] [place] [address] Tom Iraheta MD [address] [place] [address] documented as of this encounter [...] documented as of this encounter Care Teams Eligibility Technician Relationship Specialty Start Date End Date Vignesh Pickens MD [address] [place] [place] [address] PCP - General 12/31/24 Cayla Erazo APRN, DNP [address] [facility] [place] [address] Nurse Practitioner Urology 12/20/24 documented as of this encounter
--- OUTSIDE RECORDS SUMMARY | 2025-03-31 17:06 | XMS_ITS | Encounter Summary ---
Author Organization [facility] Address [address] [place] [address] Care Team Providers Care Fire Extinguisher Tester Name Role Phone Cayla Erazo APRN, DNP Unavailable [phone] Vignesh Pickens MD Primary Care Provider [phone] Encounter Details Date Type Department Care Team (Late st Contact Info) Description 02/22/2025 Orders Only External Location [address] [place] [address] Jordan Carl MD [address] [place] [address] Social History Tobacco Use Types [...] time in the past 12 m [facility], were you homeless or living [...] drink first t rodríguez in the morning (EYE-OPTICIAN) to steady your nerves or to get [...] Description 04/04/2025 10:40 AM EDT Office Visit [place] [facility] [address] [place] [address] Eugenia Jimenez, SQUIRREL WORKER [address] [facility] [address] [place] [address] 05/16/2025 8:00 AM EDT Office Visit [facility] [place] [address] [facility], [address] [place] [address] Karly Gracia MD [address] [place] [address] 06/07/2025 1:00 PM EDT Office Visit [facility] [address] [place] [address] Tom Iraheta MD [address] [place] [address] documented as of this encounter [...] documented as of this encounter Care Teams Fire Extinguisher Tester Relationship Specialty Start Date End Date Vignesh Pickens MD [address] [place] [address] PCP - General 12/31/24 Cayla Erazo APRN, FREDERICK [address] [place] [address] Nurse Practitioner Urology 12/20/24 documented as of this encounter
--- OUTSIDE RECORDS SUMMARY | 2025-03-31 17:06 | XMS_ITS | Encounter Summary ---
Author Organization [facility] Address [address] [place] [address] Care Team Providers Care Director Of Software Development Name Role Phone Cayla Erazo APRN, DNP Unavailable [phone] Vignesh Pickens MD Primary Care Provider [phone] Encounter Details Date Type Department Care Team (Late st Contact Info) Description 02/22/2025 Orders Only External Location [address] [place] [address] Jordan Carl MD [address] [place] [address] Social History Tobacco Use Types [...] drink first t rodríguez in the morning (EYE-KEY BED INSTALLER) to steady your nerves or to [...] Description 04/04/2025 10:40 AM EDT Office Visit [facility] [address] [place] [address] Eugenia Jimenez, JD EDWARDS CONSULTANT [address] [facility] [address] [place] [address] 05/16/2025 8:00 AM EDT Office Visit [facility] [place] [address] [facility], [address] [place] [address] Karly Gracia MD [address] [place] [address] 06/07/2025 1:00 PM EDT Office Visit [facility] [address] [facility] [address] [address] [place] [address] Tom Iraheta MD [address] [place] [address] documented as of this encounter [...] of this encounter Care Teams Director Of Software Development Relationship Specialty Start Date End Date Vignesh Pickens MD [address] [place] [id number] PCP - General 12/31/24 Cayla Erazo APRN, DNP [address] [place] [address] Nurse Practitioner Urology 12/20/24 documented as of this encounter
--- OUTSIDE RECORDS SUMMARY | 2025-03-31 17:06 | XMS_ITS | Encounter Summary ---
Author Organization [facility] Address [address] [place] [address] Care Team Providers Care Level Glass Forming Machine Operator Name Role Phone Daniel Barba MD Primary Care Provider [phone] Cayla Erazo APRN, [facility] Unavailable [phone] Vignesh Pickens MD Primary Care Provider [phone] Encounter Details Date Type Department Care Team (Late st Contact Info) Description 10/19/2024 Orders Only External Location [address] [place] [address] Provider, External Social History Tobacco Use Types [...] first t rodríguez in the morning (EYE-BUSINESS APPLICATIONS SPECIALIST) to steady your nerves or to [...] Description 04/04/2025 10:40 AM EDT Office Visit [facility] [address] [place] [address] Eugenia Jimenez, IMPORT EXPORT MANAGER [address] [place] [address] 05/16/2025 8:00 AM EDT Office Visit [facility] [place] [address] [facility], [address] [place] [address] Karly Gracia MD [address] [place] [address] 06/07/2025 1:00 PM EDT Office Visit [facility] [address] [place] [address] Tom Iraheta MD [address] [place] [address] documented as of this encounter [...] documented as of this encounter Care Teams Level Glass Forming Machine Operator Relationship Specialty Start Date End Date Daniel Barba MD [address] [place] [address] PCP - General 01/02/21 12/30/24 Vignesh Pickens MD [address] [place] [address] PCP - General 12/31/24 Cayla Erazo APRN, FREDERICK [address] [place] [place] [address] Nurse Practitioner Urology 12/20/24 documented as of this encounter
--- OUTSIDE RECORDS SUMMARY | 2025-03-31 17:06 | XMS_ITS | Encounter Summary ---
Author Organization [facility] Address [address] [place] [address] Care Team Providers Care Crane Hoist Or Lift Operator Name Role Phone Cayla Erazo APRN, DNP Unavailable [phone] Vignesh Pickens MD Primary Care Provider [phone] Encounter Details Date Type Department Care Team (Late st Contact Info) Description 02/22/2025 Orders Only External Location [address] [place] [address] Jordan Carl MD [address] [place] [address] Social History Tobacco Use Types [...] drink first t rodríguez in the morning (EYE-CRISIS CLINICIAN) to steady your nerves or to [...] Description 04/04/2025 10:40 AM EDT [facility] [address] [place] [address] Eugenia Jimenez, CATERING ASSOCIATE [address] [facility] [address] [place] [address] 05/16/2025 8:00 AM EDT Office Visit [facility] [place] [address] [facility], [address] [place] [address] Karly Gracia MD [address] [place] [address] 06/07/2025 1:00 PM EDT Office Visit [facility] [address] [facility] [address] [place] [address] Tom Iraheta MD [address] [place] [address] documented as of this encounter [...] documented as of this encounter Care Teams Crane Hoist Or Lift Operator Relationship Specialty Start Date End Date Vignesh Pickens MD [address] [place] [id number] PCP - General 12/31/24 Cayla Erazo APRN, DNP [address] [place] [address] Nurse Practitioner Urology 12/20/24 documented as of this encounter
--- OUTSIDE RECORDS SUMMARY | 2025-03-31 17:06 | XMS_ITS | Encounter Summary ---
Author Organization [facility] Address [address] [place] [address] Care Team Providers Care Cdl Company Flatbed Driver Name Role Phone Cayla Erazo APRN, DNP Unavailable [phone] Vignesh Pickens MD Primary Care Provider [phone] Encounter Details Date Type Department Care Team [...] drink first t rodríguez in the morning (EYE-INVESTMENT COUNSELOR) to steady your nerves or to [...] Behavior (Lifetime) No 8:00 AM EDT Gayle iLght, RN documented as of this encounter Plan of Treatment Upcoming Encounters Date Type Department Care Team (Late st Contact Info) Description 04/04/2025 10:40 AM EDT Office Visit [facility] [address] [place] [address] Eugenia Jimenez, ORACLE E BUSINESS DEVELOPER [address] [place] [address] 05/16/2025 8:00 AM EDT Office Visit [facility] [place] [address] [facility], [address] [place] [address] Karly Gracia MD [address] [place] [address] 06/07/2025 1:00 PM EDT Office Visit [facility] [address] [place] [address] Tom Iraheta MD [address] [place] [address] documented as of this encounter [...] documented as of this encounter Care Teams Cdl Company Flatbed Driver Relationship Specialty Start Date End Date Vignesh Pickens MD [address] [place] [address] PCP - General 12/31/24 Cayla Erazo APRN, FREDERICK [address] [facility] [address] [place] [address] Nurse Practitioner Urology 12/20/24 documented as of this encounter
--- OUTSIDE RECORDS SUMMARY | 2025-03-31 17:06 | XMS_ITS | Referral Summary ---
Author Organization [employer] ([place], [place], [place], [place]) Address [address] [place] [address] Care Team Providers Care Label Sewer Name Role Phone [facility], Provider Not In The System MD Primary [...] Do you speak a language other than Kiswahili at ho me? No 12/09/2023 Do you [...] 11.7 % 11/25/2023 5:[address] [facility] Comment: Hemoglobin A1C levels are related to mean glucose during the preceding 2-3 months. Less than 7% demonstrates glycemic control in diabetic patients. Hemoglobin AlC % Suggested Diagnosis > or = 6.5 Diabetic 5.7 - 6.4 Prediabetic <5.7 Non-diabetic eAVG Glucose 289.09 mg/dL 11/25/2023 5:[address] [facility] Blood Venipuncture / Unknown 11/25/2023 11:24 AM EDT 11/25/2023 1:46 PM EDT Radha Ram MD LAB BLOOD ORDERABLES Fi nal Result [facility] [address] [place] [address], [facility] [phone] from Last 3 Months or Most Recently Relevant to Health Maintenance Insurance MEDICARE PART A B MEDICAID OF [place] Advance Directives For more information, please contact: [phone] * Full Code (Latest Code Status on [...] Sister First Alternate Healthcare Decision-Maker Care Teams Label Sewer Relationship Specialty Start Date End Date [facility], Provider Not In The System, [place] [address] PCP - General 10/05/23
--- OUTSIDE RECORDS SUMMARY | 2025-03-31 17:06 | XMS_ITS | Encounter Summary ---
Author Organization [facility] Address [address] [place] [address] Care Team Providers Care Nail Machine Operator Name Role Phone Cayla Erazo APRN, DNP Unavailable [phone] Vignesh Pickens MD Primary Care Provider [phone] Encounter Details Date Type Department Care Team [...] drink first t rodríguez in the morning (EYE-OPTICAL SCIENTIST) to steady your nerves or to get [...] Description 04/04/2025 10:40 AM EDT Office Visit [facility] [address] 2[address] [place] [address] Eugenia Jimenez APRN [address] [place] [address] 05/16/2025 8:00 AM EDT Office Visit [facility] [place] [address] [facility], [address] [place] [address] Karly Gracia MD [address] [place] [address] 06/07/2025 1:00 PM EDT [facility] [address] [facility] [address] [place] [address] Tom Iraheta MD [address] [place] [address] documented as of this encounter [...] documented as of this encounter Care Teams Nail Machine Operator Relationship Specialty Start Date End Date Vignesh Pickens MD [address] [place] [address] PCP - General 12/31/24 Cayla Erazo APRN, DNP [address] [place] [address] Nurse Practitioner Urology 12/20/24 documented as of this encounter
--- OUTSIDE RECORDS SUMMARY | 2025-03-31 17:06 | XMS_ITS | Encounter Summary ---
Author Organization [facility] Address [address] [place] [address] Care Team Providers Care Airport Ramp Attendant Name Role Phone Cayla Erazo APRN, DNP Unavailable [phone] Vignesh Pickens MD Primary Care Provider [phone] Encounter Details Date Type Department Care Team (Late st Contact Info) Description 02/22/2025 Orders Only External Location [address] [place] [address] Jordan Carl MD [address] [place] [address] Social History Tobacco Use Types [...] drink first t rodríguez in the morning (EYE-ASSISTED LIVING NURSING DIRECTOR) to steady your nerves or to [...] Description 04/04/2025 10:40 AM EDT Office Visit [facility] [address] [place] [address] Eugenia Jimenez, BUS INSPECTOR [address] [facility] [address] [place] [address] 05/16/2025 8:00 AM EDT Office Visit [facility] [place] [address] [facility], [address] [place] [address] Karly Gracia MD [address] [place] [address] 06/07/2025 1:00 PM EDT Office Visit [facility] [address] [facility] [address] [place] [address] Tom Iraheta MD [address] [place] [address] documented as of this encounter [...] documented as of this encounter Care Teams Airport Ramp Attendant Relationship Specialty Start Date End Date Vignesh Pickens MD [address] [place] [id number] PCP - General 12/31/24 Cayla Erazo APRN, DNP [address] [place] [address] Nurse Practitioner Urology 12/20/24 documented as of this encounter
--- OUTSIDE RECORDS SUMMARY | 2025-03-31 17:06 | XMS_ITS | Encounter Summary ---
Author Organization [facility] Address [address] [place] [address] Care Team Providers Care Assistant Professor Of History Name Role Phone Cayla Erazo APRN, FREDERICK Unavailable [phone] Vignesh Pickens MD Primary Care Provider [phone] Encounter Details Date Type Department Care Team (Late st Contact Info) Description 03/04/2025 Results Follow-Up [facility] Medicine Virtual Dept. [address] [place] [address] Madonna Singleton MD [address] [place] [address] Social History Tobacco Use Types Packs/Day Years [...] drink first t rodríguez in the morning (EYE-PLATE CUTTER) to steady your nerves or to [...] Description 04/04/2025 10:40 AM EDT Office Visit [facility] [address], [address] [place] [address] Eugenia Jimenez, SALES SUPPORT COORDINATOR [address] [place] [address] 05/16/2025 8:00 AM EDT Office Visit [facility] [place] [address], [address] [place] [address] Karly Gracia MD [address] [place] [address] 06/07/2025 1:00 PM EDT Office Visit [facility] [address] [place] [address] Tom Iraheta MD [address] [place] [address] documented as of this encounter Visit Diagnoses [...] as of this encounter Care Teams Assistant Professor Of History Relationship Specialty Start Date End Date Vignesh Pickens MD [address] [place] [address] PCP - General 12/31/24 Cayla Erazo APRN, FREDERICK [address] [place] [address] Nurse Practitioner Urology 12/20/24 documented as of this encounter
--- OUTSIDE RECORDS SUMMARY | 2025-03-31 17:06 | XMS_ITS | Encounter Summary ---
Author Organization [facility] Address [address] [place] [address] Care Team Providers Care Vehicle Leasing And Rental Manager Name Role Phone Cayla Erazo APRN, DNP Unavailable [phone] Vignesh Pickens MD Primary Care Provider [phone] Encounter Details Date Type Department Care Team [...] drink first t rodríguez in the morning (EYE-IRRIGATION EQUIPMENT INSTALLER) to steady your nerves or to [...] Description 04/04/2025 10:40 AM EDT Office Visit [facility] [address] [place] [address] Eugenia Jimenez, DAM ATTENDANT [address] [place] [address] 05/16/2025 8:00 AM EDT Office Visit [facility] [place] [address] [facility], [address] [place] [address] Karly Gracia MD [address] [place] [address] 06/07/2025 1:00 PM EDT Office Visit [facility] [address] [place] [address] Tom Iraheta MD [address] [place] [address] documented as of this encounter [...] documented as of this encounter Care Teams Vehicle Leasing And Rental Manager Relationship Specialty Start Date End Date Vignesh Pickens MD [address] [place] [address] PCP - General 12/31/24 Cayla Erazo APRN, FREDERICK [address] [place] [address] Nurse Practitioner Urology 12/20/24 documented as of this encounter
--- OUTSIDE RECORDS SUMMARY | 2025-03-31 17:06 | XMS_ITS | Encounter Summary ---
Author Organization [facility] Address [address] [place] [address] Care Team Providers Care Evaluation Advisor Name Role Phone Cayla Erazo APRN, DNP Unavailable [phone] Vignesh Pickens MD Primary Care Provider [phone] Encounter Details Date Type Department Care Team [...] drink first t rodríguez in the morning (EYE-OCEAN EXPORT COORDINATOR) to steady your nerves or to [...] Description 04/04/2025 10:40 AM EDT Office Visit [facility] [address], [address] [place] [address] Eugenia Jimenez, DIRECTOR HRIS [address] [place] [address] 05/16/2025 8:00 AM EDT Office Visit [facility] [place] [address] [facility], [address] [place] [address] Karly Gracia MD [address] [place] [address] 06/07/2025 1:00 PM EDT Office Visit [facility] [address] [place] [address] Tom Iraheta MD [address] [place] [address] documented as of this encounter [...] documented as of this encounter Care Teams Evaluation Advisor Relationship Specialty Start Date End Date Vignesh Pickens MD [address] [place] [address] PCP - General 12/31/24 Cayla Erazo APRN, FREDERICK [address] [facility] [address] [place] [address] Nurse Practitioner Urology 12/20/24 documented as of this encounter
--- OUTSIDE RECORDS SUMMARY | 2025-03-31 17:07 | XMS_ITS | Encounter Summary ---
Author Organization [facility] Address [address] [place] [address] Care Team Providers Care Analog Circuit Designer Name Role Phone Cayla Erazo APRN, DNP Unavailable [phone] Vignesh Pickens MD Primary Care Provider [phone] Encounter Details Date Type Department Care Team (Late st Contact Info) Description 03/01/2025 Telephone [facility] tre[facility] [address] [address] Dental, Surgeon, [address] [place] [address] Social History Tobacco Use Types Packs/Day Years [...] drink first t rodríguez in the morning (EYE-BEAN DUMPER) to steady your nerves or to get [...] Office Visit [facility] [address], [address] [place] [address] Eugenia Jimeenz, MANAGER ENTRY [address] [place] [address] 05/16/2025 8:00 AM EDT Office Visit [facility] [place] [address] [facility] [address], [address] [place] [address] Karly Gracia MD [address] [place] [address] 06/07/2025 1:00 PM EDT Office Visit [facility] [address] [place] [address] Tom Iraheta MD [address] [place] [address] documented as of this encounter [...] documented as of this encounter Care Teams Analog Circuit Designer Relationship Specialty Start Date End Date Vignesh Pickens MD [address] [place] [address] PCP - General 12/31/24 Cayla Erazo APRN, FREDERICK [address] [facility] [address] [place] [address] Nurse Practitioner Urology 12/20/24 documented as of this encounter
[2025-04-01 03:32] LABS: C. difficile PCR (HMH) Negative (Negative)
== END 2025-03-31 23:59 | disposition home or self-care (01) ==
LOC: LAB.DROPOF 17:03
PROVIDERS: PCP Family Medicine; Visit Provider Family Medicine
DX: R19.7 Diarrhea, unspecified (principal); R19.5 Other fecal abnormalities
CPT/HCPCS: 87493

== ENCOUNTER → 2025-04-03 11:04 | Outpatient (REF) | payer SELFPAY ==
--- OUTSIDE RECORDS SUMMARY | 2025-02-22 18:13 | XMS_ITS | Encounter Summary ---
Author Organization [facility] Address [address] [id number] Care Team Providers Care School Physical Therapist Name Role Phone Cayla Erazo APRN, DNP Unavailable [phone] Vignesh Pickens MD Primary Care Provider [phone] Reason for Visit * Reason Comments Altered Mental Status * Auth/Cert (Routine) Specialty Diagnoses / Procedures Referred By Contac t Referred To Contact Diagnoses Sepsis (CMS/HCC) UTI, CKD, Hyponatremia, COPD exacerbation Bobby Parra MD [address] [place] [address] Phone: tel: fax: PAV A Inpatient [address] [place] [address] Referral ID Status Reason Start Date Expiration Date Visits Re quested Visits Authorized [id number] 1 1 Encounter Details Date Type Department Care Team (Latest Contact Info) Description 02/22/2025 6:13 PM EDT - 03/02/2025 11:04 AM EDT Hospital Encounter P[facility] A Inpatient [address] [place] [address] Luda Mroton MD [address] [place] [address] Bobby Parra MD [address] [place] [address] Luda Ralph MD [address] [place] [address] Ludy Hill MD [address] [facility] [address] [place] [address] Madonna Singleton MD [address] [place] [address] Acute respiratory failure with hypoxia [...] left lower extremity above knee Discharge Disposition: Group Home Facility Social History Tobacco Use Types Packs/Day [...] any time in the past 12 m [facility], were you homeless or [...] drink first t rodríguez in the morning (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) to steady your nerves or to get [...] Anthony Vaughn Discharge Facility/Level of Care Needs: 3-Group Home Facility Current Outpatient/Agency/Support Group: group home facility Transportation Anticipated: ([facility]) other (see comments) Outpatient/Agency/Support Group Needs: group home facility Transportation Concerns: none Concerns to be Addressed: discharge planning Readmission Within the Last 30 Days: other (see comments) Patient/Family Anticipated Services at Transition: group home rehabilitation services Patient/Family Anticipates Transition to: [...] Care Transition Intervention: Promote Activity and Functional Coffey Flowsheets Taken 03/02/2025 08 by Gayle Light [...] EDT Patient discharged at approximately 1040 via [facility] wheelchair transport. Report called to JHONNY Hawkins at [facility] in [place]. All appropriate paperwork and personal belongings sent withpatient. * Lawanda [facility] - Gayle Light RN - 03/02/2025 9:03 AM EDT Images from the original note were not included. 78047 Sepsis Sepsis is a very serious condition. [...] (ICU). Last Reviewed Date: 2023 00:00:00 ?? [id number] [employer]. All rights reserved. This information is not intended as a substitute for professional medical care. Always follow your healthcare professional's instructions. * Lawanda [facility] - Gayle Light RN - 03/02/2025 9:03 AM EDT Images from the original note were not included. [id number] Discharge Instructions for Acute Kidney Injury You [...] tiredness Last Reviewed Date: 2022 00:00:00 ?? [id number] [employer]. All rights reserved. This information is not [...] Pickens MD [address] / [place] [address] Referring provider name and address: Jordan Carl MD [address] [place] [address] [place] [address] Chief Concern, Brief History of Present Illness, [...] negative infectious workup. She was extubated to [place] w/o complications on 02/24/25. Currently saturating well [...] 120 at OSH, 125 on arrival to [facility] - Serum osm wnl, urine [...] Your Medications These medications were sent to [facility] - Jeanette RENETTA Reid - [facility] Wil[facility] [place] [address] fentaNYL 12 MCG/HR naloxone 4 mg/0.1 mL [...] Problems Hospital * (Principal) Sepsis ([facility]) Post Discharge Instructions Take [facility] as precribed Outpatient Follow-Up Future Appointments Date Time Provider Department Center 03/07/2025 10:00 AM Doug Chapman MD [facility] 03/27/2025 10:30 AM [facility] 3 USGSGSH [facility] 03/27/2025 11:50 AM [facility] LEATHER GOODS MAKER LABGSMOB None 03/27/2025 1:00 PM Cayla Erazo APRN, [place] [facility]OGSHMO[facility] 05/16/2025 8:00 AM Karly Gracia MD CARGSMOB [facility] 06/07/2025 1:00 PM Tom Iraheta MD RENCYHMH [...] Note Eileen May 64 y.o. female CSN: [id number] Admission: 02/22/2025 6:13 PM Primary Problem: Sepsis [...] Chair transport scheduled today at 9am To: [facility] Report: [phone] Discharge Summary fax: [phone] Escribe new meds/controls to: [facility] will remain available through discharge if needs arise. Daniela Thomas CHIEF LIBRARIAN WORK WITH BLIND, MAIL PROCESSING EQUIPMENT MECHANIC Biomedical Electronics Technician * Gayle De León RN - 03/02/2025 8:44 AM EDT Images from the original note were not included. [id number] Acute Kidney Injury: Care Instructions Overview Acute [...] this instruction, always ask your healthcare professional. [employer] disclaims any warranty or liability for your use of this information. ?? [id number] [employer]. * Lawanda Katerine - Gayle Light, RN - 03/02/2025 8:44 AM EDT Images from the original note were not included. [id number] Urinary Tract Infections in Women Urinary tract [...] started. Last Reviewed Date: 2023 00:00:00 ?? [id number] [employer]. All rights reserved. This information is not [...] Anthony Vaughn Discharge Facility/Level of Care Needs: 3-Group Home Facility Current Outpatient/Agency/Support Group: group home facility Transportation Anticipated: ([facility]) other (see comments) Outpatient/Agency/Support Group Needs: group home facility Transportation Concerns: none Concerns to be Addressed: discharge planning Readmission Within the Last 30 Days: other (see comments) Patient/Family Anticipated Services at Transition: group home rehabilitation services Patient/Family Anticipates Transition to: [...] Anthony Vaughn Discharge Facility/Level of Care Needs: 3-Group Home Facility Current Outpatient/Agency/Support Group: group home facility Transportation Anticipated: ([facility]) other (see comments) Outpatient/Agency/Support Group Needs: group home facility Transportation Concerns: none Concerns to be Addressed: discharge planning Readmission Within the Last 30 Days: other (see comments) Patient/Family Anticipated Services at Transition: group home rehabilitation services Patient/Family Anticipates Transition to: [...] Ongoing, Progressing Intervention: Promote Activity and Functional Coffey Flowsheets Taken 03/01/2025 0800 by Gayle Light [...] negative infectious workup. She was extubated to [place] w/o complications on 02/24/25. Currently saturating well [...] resumed home meds continue Mirabegron HFrEF 2/2 [facility] - 11/2024 LVEF [...] 120 at OSH, 125 on arrival to [facility] - Serum osm wnl, urine [...] meds today F: soft and bite sized, BAND INSTRUMENT MAKER eval Code Status: Assume Full Medically Ready for Discharge: * Progress Notes - Anthony Vaughn - 03/01/2025 9:27 AM EDT Case Management Discharge Note Eileen May 64 y.o. female CSN: [id number] Admission: 02/22/2025 6:13 PM Primary Problem: Sepsis (CMS/HCC) Primary Production Reproduction Manager: Primary Caregiver: Private caregiver Assistance Available at Discharge: Current Outpatient/Agency/Support Group: group home facility Availability of Care Givers (#Hours): 24 hours Family/Production Reproduction Manager(s) Willingness Assessed to care for patient at home: Yes Family/Production Reproduction Manager(s) Readiness Assessed to care for patient at home: Yes Housing Circumstances-Z Codes: Housing Circumstances (select all that apply): None Applicable Discharge Facility/Level of Care Needs: Discharge Facility/Level of Care Needs: 3-Group Home Facility Patient/Family Anticipated Services at Transition: Patient/Family Anticipated Services at Transition: group home, rehabilitation services DME/Equipment Needed after Discharge: [...] Notice Recieved By: Pt at bedside Follow-up: [facility] [address] [place], [place] [id number] Follow up Vignesh Pickens MD [address] [id number] Follow up Discharge Transportation: Transportation Anticipated: other (see comments) ([facility]) Transportation Home at Discharge: Other(Comment) ([facility]) Has discharge transport been arranged?: Yes What day is the transport expected?: 03/01/25 What time is the transport expected?: 0900 Follow Up Transport: Transportation Needed to Follow up Appoinments: Other(Comment) ([place]) Additional Comments: Plan of care reviewed with Pt's care team; Pt is medically ready for discharge. Pt is a resident [facility] in [place]. [facility] fpg. Weekend CM to fax Pt's discharge summary to [phone], and bedside RN to call report to [phone]. Facility uses [facility] in [place]. SW met with Pt at bedside, who [...] negative infectious workup. She was ext[place]ated to [place] w/o complications on 02/24/25. Currently saturating well [...] PAL MURF, Bcx NGTD S/p extubation 02/24, [place] for SPO2 92%+ PLAN: Supportive care for [...] resumed home meds continue Mirabegron HFrEF 2/2 [facility] - 11/2024 LVEF [...] 120 at OSH, 125 on arrival to [facility] - Serum osm wnl, urine [...] meds today F: soft and bite sized, BAND INSTRUMENT MAKER eval Code Status: Assume Full Medically Ready for Discharge: * Progress Notes - Anthony Vaughn - 02/28/2025 11:11 AM EDT Case Management Adult Progress Note Eileen May 64 y.o. female CSN: [id number] Admission: 02/22/2025 6:13 PM Primary Problem: Sepsis (CMS/HCC) Anticipated Discharge Date: TBD Has Discharge Plans Changed? No Additional Comments Plan of care reviewed with Pt's care team; Pt is not medically ready for discharge. Dental extraction planned for today. Anticipate discharge readiness tomorrow. Pt is a resident at [facility]. SW sent updated notes to Pt's facility [...] comments) Current Outpatient/Agency/Support Group: inpatient rehabilitation facility OT,PT,BAND INSTRUMENT MAKER Anticipated Changes Related to Illness: inability to care for self Transportation Anticipated: medical transport Outpatient/Agency/Support Group Needs: inpatient rehabilitation facility Transportation Concerns: none Current Discharge Risk: physical impairment Concerns to be Addressed: basic needs discharge planning Readmission Within the Last 30 Days: previous discharge plan unsuccessful Patient/Family Anticipated Services at Transition: case maker durable medical equipment rehabilitation services [...] comments) Current Outpatient/Agency/Support Group: inpatient rehabilitation facility OT,PT,BAND INSTRUMENT MAKER Anticipated Changes Related to Illness: inability to care for self Transportation Anticipated: medical transport Outpatient/Agency/Support Group Needs: inpatient rehabilitation facility Transportation Concerns: none Current Discharge Risk: physical impairment Concerns to be Addressed: basic needs discharge planning Readmission Within the Last 30 Days: previous discharge plan unsuccessful Patient/Family Anticipated Services at Transition: case maker durable medical equipment rehabilitation services [...] Ongoing, Progressing Intervention: Promote Activity and Functional Coffey Flowsheets Taken 02/28/2025 0816 by Gayle Light [...] negative infectious workup. She was [place] to [place] w/o complications on 02/24/25. Mentating well back [...] negative infectious workup. She was ext[place]ated to [place] w/o complications on 02/24/25. Events of past [...] in the posterior aspect of tooth #31. Ault wear in tooth number 8, 9 and [...] negative infectious workup. She was extubated to [place] w/o complications on 02/24/25. #Acute hypoxic respiratory [...] MURF, Bcx NGTD - S/p extubation 02/24, [place] for SPO2 92%+ PLAN: - Supportive care [...] home meds - continue Mirabegron #HFrEF 2/2 [facility] - 11/2024 LVEF [...] 120 at OSH, 125 on arrival to [facility] - Serum osm wnl, urine [...] meds today F: soft and bite sized, BAND INSTRUMENT MAKER eval A: oxy, acetaminophen, fentanyl patch [...] Chuy Graham DO Internal Medicine PGY-2 Pager [phone]; Epic Chat preferred Procedures [1] [2] PRN [...] negative infectious workup. She was extubated to [place] w/o complications on 02/24/25. During her hospital [...] is being transferred from ICU team to [facility] Team 14 Major Active Problems: Currently active [...] home meds - continue Mirabegron #HFrEF / [facility] - 11/2024 LVEF [...] meds today F: soft and bite sized, BAND INSTRUMENT MAKER eval A: oxy, acetaminophen, fentanyl patch [...] 120 at OSH, 125 on arrival to [facility] - Serum osm wnl, urine [...] Lunch Supplement frequency: Dinner Lunch supplement: [place] Quantity for Lunch of Tony [place] Packet One Dinner supplement: Tony Fruit Punch [...] Chuy Graham DO Internal Medicine PGY-2 Pager [phone]; Epic Chat preferred * Care Plan - [...] Ongoing, Progressing Intervention: Promote Activity and Functional Coffey Flowsheets (Taken 02/26/2025 1750 by Bassem Jay, [...] Ongoing, Progressing Intervention: Promote Activity and Functional Coffey Flowsheets (Taken 02/26/2025 1750) Activity Assistance Provided: assistance refused education provided Self-Care Promotion: independence encouraged * Progress Notes - Eileen Ortega - 02/26/2025 11:16 AM EDT Physical Therapy Evaluation Patient Name: Eileen May Today's Date: 02/26/2025 PT Discharge Recommendations: Subacute rehab Equipment Recommended: Defer to facility History Eileen May is 64 y.o. female admitted 02/22/2025 for work-up of Sepsis ([facility]). Problem List Active Hospital Problems Diagnosis Date Noted Sepsis ([facility]) 02/22/2025 Procedures Past 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 Patient has a past medical history of Anxiety, Breast cancer, Cerebral infarction, unspecified ([facility]), COPD (chronic obstructive pulmonary disease) ([facility]), Depression, Fibromyalgia, History of falling, [...] relaxing. Participants in Care Family/Caregiver Present: No Biomedical Photographer: Not Applicable Presentation Oxygen Therapy: None (Room [...] session; RN aware Home Living/Set-up Home Type: half-way facility Home Adaptive Equipment: Wheelchair-manual, Hospital bed [...] From: Caregiver Level of Mobility: Wheelchair/Scooter Mobility Coffey: Independent wheelchair propulsion History of Falls: No ADL Performance: Needs assistance Bathing: Needs assist Upper Body Dressing: Independent Lower Body Dressing: Needs assist Grooming: Independent Toileting: Needs assist Eating: Independent Home Management Skills: Unable to perform Patient/Family Goals Return home at [facility]. Objective Pain Pt reports having some [...] change. Bed Mobility Exam: Rolling/Turning Level of Coffey: Moderate assist (50% patient effort) (bilaterally) Physical/Nonphysical Assist: Verbal Cues, Minimal cues, 1 person + 1 person to manage equipment Assistive Device: Other (drawsheet) Bed Mobility Exam: Scooting/Bridging Level of Coffey: Maximum assist (25% patient's effort) (to head [...] space Standardized Assessments Standardized Assessments Standardized Assessments: [facility] 6-Clicks Mobility Assessment [facility] 6-Clicks Mobility Assessment Difficulty patient has turning [...] 02/22/2025 for work-up of Sepsis ([facility]). Hospital Course 1. [place] coma scale total score 9-12, at arrival to emergency department 2. Acute cystitis without hematuria 3. Acute respiratory failure with hypercapnia 4. COPD exacerbation ([facility]) Procedures Past 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 Patient has a past medical history of Anxiety, Breast cancer, Cerebral infarction, unspecified ([facility]), COPD (chronic obstructive pulmonary disease) ([facility]), Depression, Fibromyalgia, History of falling, [...] date Participants in Care Family/Caregiver Present: No Biomedical Photographer: Not Applicable Presentation Oxygen Therapy: None (Room [...] treatment as tolerated Home Living/Set-Up Home Type: half-way facility Home Adaptive Equipment: Wheelchair-manual, Hospital bed [...] From: Caregiver Level of Mobility: Wheelchair/Scooter Mobility Coffey: Independent wheelchair propulsion History of Falls: No [...] of treatment space BED MOBILITY Level of Coffey Physical/Non- physical Assist Adaptive Equipment Utilized Rolling/ [...] to rot this date. TRANSFERS Level of Coffey Physical/Non- physical Assist Adaptive Equipment Utilized Sit to Stand Stand to sit Bed to Chair Toilet Transfer Shower Transfer Interventions Patient politely deferring transfer tasks this date; educated on use of amputee slingfor increased safety as patient expresses nervousness with transfer tasks. FUNCTIONAL MOBILITY Level of Coffey Distance Adaptive Equipment Utilized Ambulation Comments Patient does not ambulate at baseline* ADL / Self-Care Tasks Level of Coffey Adaptive Equipment Utilized Interventions Feeding Setup, Standby [...] increased patient rest/education throughout session. Standardized Assessments [facility] 6-Click Daily Activities Help from Other: Don/Doff Regular Lower Body Clothings: Total Help From Other: Bathing: A lot Help From Other: Toileting: Total Help From Other: Don/Doff Upper Body Clothings: Little Help From Other: Grooming: Little Help From Other: Eating Meals: None [facility] 6 Click - Daily Activities [...] negative infectious workup. She was [place] to [place] w/o complications on 02/24/25. Events of past [...] negative infectious workup. She was extubated to [place] w/o complications on 02/24/25. #Acute hypoxic respiratory [...] MURF, Bcx NGTD - S/p extubation 02/24, [place] for SPO2 92%+ PLAN: - Supportive care [...] 120 at OSH, 125 on arrival to [facility] - Serum osm wnl, urine [...] meds today F: soft and bite sized, BAND INSTRUMENT MAKER eval A: oxy, acetaminophen, fentanyl patch [...] and plan discussed with Dr. Hill. - Cuhy Graham, DO Internal Medicine PGY-2 Pager [phone]; Epic Chat preferred Procedures [1] [2] PRN [...] adjusted per tolerance Taken 02/23/2025 1254 by Tmei Mao RN Sleep/Rest Enhancement: consistent schedule promoted [...] -Schedule patient to follow-up on [facility]th [facility] for extraction of #15 underlocal anesthesia. -we will arrange transport to clinic from hospital bed. - Diet: Regular; NPO at midnight prior to surgery -For extraction of one tooth it is not warranted to stop current anticoagulation therapy. -Follow current recommendations of Primary team. [facility] Department of Oral & Maxillofacial Surgery [address] [facility] [address] [facility] [address], [address] [place] [address] Dispo: Continue Current Level of Care Bert [...] BREAST SURGERY N/A Breast Surgery Reconstruction from [facility] BREAST SURGERY N/A Breast Surgery from [facility] CHOLECYSTECTOMY N/A Cholecystotomy from [facility] KIDNEY SURGERY N/A Kidney Surgery from [facility] KNEE SURGERY N/A Knee Surgery from [facility] MASTECTOMY N/A Breast Surgery Mastectomy from [facility] SHOULDER SURGERY Right Shoulder Surgery Right from [facility] [3] No current facility-administered medications on file [...] unaware of what reaction. Pedi-Pre Tape [place] [Wound Dressing Adhesive] Rash Wellbutrin [Bupropion] Rash Cosigned by Jin Rodriguez DDS at 02/26/2025 10:04 AM EDT Associated attestation - Jin Rodriguez DDS - 02/26/2025 10:04 AM EDT I reviewed with Dr. Bowling and agree with the plan * Progress Notes - Sarah Rand - 02/25/2025 3:11 PM EDT Case Management Adult Initial Progress Note Eileen Chayito May 64 y.o. female CSN: [id number] Admission: 02/22/2025 6:13 PM Primary Problem: Sepsis (CMS/HCC) Film Coater reviewed chart and spoke with patient to complete this Initial Case Management Assessment. PCP: Vignesh Pickens MD Emergency Contact: Extended Emergency Contact Information Primary Emergency Contact: Val Howell Mobile Relation: Sister Biomedical Photographer needed? No Insurance: Primary Visit Coverage Payer Plan Sponsor Code Group Number Group Name MEDICARE MEDICARE A & B Primary Visit Coverage Subscriber Subscriber ID Subscriber Name Subscriber [facility] Subscriber Address [id number] EILEEN MAY [id number] [address] Secondary Visit Coverage Payer Plan Sponsor Code Group Number Group Name MEDICAID[facility] MEDICAID TRADITIONAL Secondary Visit Coverage Subscriber Subscriber ID Subscriber Name Subscriber N Subscriber Address [id number] EILEEN MAY [id number] [place] [address] Patient information: Primary Caregiver: Private caregiver Support System: Immediate family Daily Living Activities: Functional Status: Moderate assistance Living Arrangements: Care Home Type of Residence: half-way facility [facility] [place] [address] Current DME: Equipment Currently Used at Home: [...] living facility Discharge Transport: Follow Up Transport: [facility] provides follow up transportation. Patient will need assistance with transportation when medically stable. Home Health / Home Infusion / Outpatient Dialysis Services: None reported. Living Will/Advance Directive/Power of Silk Brusher /Guardian: None reported. Sister/Val is NOK. Additional [...] Note Eileen May 64 y.o. female CSN: [id number] Room/Bed 121/121A Nutrition evaluation type: follow-up Reason [...] 36.76 Weight Evaluation: Obese-Class 2 (BMI 35-39.9) [place] Body Weight (kg): 48.55 (adjusted for left AKA) Percent [place] Body Weight: 198 Adjusted Body Weight (kg): [...] oz) Estimated Needs: Kcal/ K-30 Kcal Provided: 7475-5169 Kcal Needs Based On: Adjusted weight (60.5 kg) Gm Protein/ Kg : 1.2-1.5 Protein Provided: 73-91 Protein Needs Based On: Adjusted weight (60.5 kg) Fluid Provided: 1 ml/kcal or per MD team Metabolic Cart Study Results: Current Nutrition Intake: Diet Supplements: None Diet Order: Adult Diet Diet Texture: Full Liquid Adult Carbohydrate Restriction: Consistent CHO 2 (7812-7817 [place], 80 g/meal) Percent Meals Eaten (%): 50% x 1 meal Diet Experience and Nutrition History: Diet Education Provided: Will monitor Pertinent home medications: ascorbic acid, calcitriol, cholecalciferol, cyanocobalamin, ferrous sulfate, insulin, loperamide, magnesium oxide, MVI, ondansetron, Percocet, pantoprazole Faith needs: Nutrition Focused Physical Exam: Unable to Complete Exam: Patient unable to participate Physical exam performed on (date): Assessment of Malnutrition: Nutrition Problem: Inadequate oral intake related to current clinical condition as evidenced by full liquid diet. Status of Nutrition Diagnosis: Ongoing Nutrition Interventions and Recommendations: - Advance diet as appropriate per BAND INSTRUMENT MAKER - CHO 2 diet - Add [...] BREAST SURGERY N/A Breast Surgery Reconstruction from [facility] BREAST SURGERY N/A Breast Surgery from [facility] CHOLECYSTECTOMY N/A Cholecystotomy from [facility] KIDNEY SURGERY N/A Kidney Surgery from [facility] KNEE SURGERY N/A Knee Surgery from [facility] MASTECTOMY N/A Breast Surgery Mastectomy from [facility] SHOULDER SURGERY Right Shoulder Surgery Right from [facility] [3] atorvastatin, 40 mg, Oral, Nightly baclofen, [...] negative infectious workup. She was extubated to [place] w/o complications on 02/24/25. Events of past 24 hours: - no acute events overnight - was extubated 02/24/25 to [place], doing well, currently above goal on 2L [...] negative infectious workup. She was extubated to [place] w/o complications on 02/24/25. #Acute hypoxic respiratory [...] Bcx NGTD PLAN: - S/p extubation 02/24, [place] for SPO2 92%+ - Supportive care for [...] meds today - on Mirabegron #HFrEF 2/2 [facility] - 11/2024 LVEF [...] 120 at OSH, 125 on arrival to [facility] - Serum osm wnl, urine [...] meds today F: full liquid carb 2, [employer] eval A: oxy, acetaminophen, prn dilaudid [...] Chuy Graham DO Internal Medicine PGY-2 Pager [phone]; Epic Chat preferred Procedures [1] [2] PRN [...] Note Eileen May 64 y.o. female CSN: [id number] Room/Bed 121/121A Nutrition evaluation type: assessment Reason [...] 36.39 Weight Evaluation: Obese-Class 2 (BMI 35-39.9) [place] Body Weight (kg): 48.55 (adjusted for left AKA) Percent [place] Body Weight: 198 Adjusted Body Weight (kg): [...] oz) Estimated Needs: Kcal/ K-30 Kcal Provided: 7463-3809 Kcal Needs Based On: Adjusted weight (60.5 [...] loperamide, magnesium oxide, MVI, ondansetron, Percocet, pantoprazole Faith needs: Nutrition Focused Physical Exam: Unable to Complete Exam: Weekend coverage Physical exam performed on (date): pending Assessment of Malnutrition: Nutrition Problem: Inadequate oral intake related to current clinical condition as evidenced by GCS 11, NPO diet order. Status of Nutrition Diagnosis: New Nutrition Interventions and Recommendations: PO diet advancement per [employer]/MD team. TF recs if warranted: Diabetisource [...] BREAST SURGERY N/A Breast Surgery Reconstruction from [facility] BREAST SURGERY N/A Breast Surgery from [facility] CHOLECYSTECTOMY N/A Cholecystotomy from [facility] KIDNEY SURGERY N/A Kidney Surgery from [facility] KNEE SURGERY N/A Knee Surgery from [facility] MASTECTOMY N/A Breast Surgery Mastectomy from [facility] SHOULDER SURGERY Right Shoulder Surgery Right from [facility] [3] atorvastatin, 40 mg, Nasogastric, Nightly clopidogrel, [...] limited positioning supports utilized pressure points protected dolf-ve-yimisp areas padded tubing/devices free from skin contact [...] continued concern or difficult irrigating, contact Urology application coordinator. #hypovolemic Hyponatremia, resolved - baseline Na 130-135 - Na 120 at OSH, 125 on arrival to [facility] - Serum osm wnl, urine [...] Ralph. Boyd Romano. Internal Medicine PGY-2 Pager [phone] Critical Care Performed by: Luda Ralph MD [...] MD Consult ordered by: Luda Ralph MD [facility] Consult Note 02/23/25 Service Requesting Consultation: MICU CC: Hematuria HPI: Eileen May is a 64 y.o. female with a past medical history of CAD s/p PCI, ICM w/ LVEF 35-40%, CVA w/ residual L-sided deficits s/p ICA stents on xeralto, Left AKA, insulin dependent T2DM, HTN, HLD, prior breast cancer s/p mastectomy, COPD, bilateral hydronephrosis and neurogenic bladder who presented to [facility] ED as a transfer from OSH with [...] Problem List: Principal Problem: Sepsis ([facility]) Assessment: Eileen May is a [...] need to be upsized to a 20 Ivorian catheter to allow for easier drainage. We [...] continued concern or difficult irrigating, contact Urology application coordinator. Jake Sheets MD Urology PGY-2 [1] Past [...] shock, due to unspecified organism ([facility]) Images from the original note [...] AMS with GCS 6-7 on arrival to [facility] therefore intubated for airway protection [...] continued concern or difficult irrigating, contact Urology application coordinator. #Hyponatremia - baseline Na 130-135 - Na 120 at OSH, 125 on arrival to [facility] PLAN: - will continue to [...] Chuy Graham, DO Internal Medicine PGY-2 Pager [phone]; Epic Chat preferred Critical Care Performed by: [...] Least Restrictive Safety Strategies Flowsheets (Taken 02/22/20252235) Advertisement Distributor Protection: torso covered tubing secured Diversional Activities: [...] and AMS. Patient presented to OSH from [facility] due to concern for hyponatremia, encephalopathy and [...] exacerbation, given duonebs and azithromycin. Transferred to [facility] for higher level of care. On arrival to [facility] ED, patient GCS 6-7, VBG7.28/60/41, [...] AMS with GCS 6-7 on arrival to [facility] therefore intubated for airway protection [...] 120 at OSH, 125 on arrival to [facility] - will continue to monitor with q4h Na HFrEF 2/2 [facility] - 11/2024 LVEF [...] Rachel Shipman MD PGY-3, Internal Medicine Pager: [phone] Procedures [1] Family History Problem Relation Name [...] bag 0.25 mg Intravenous q10 min PRN Gordon, Leon B, DO 0.25 mg at 02/22/251953 Or HYDROmorphone (Dilaudid) bolus from bag 0.5 mg Intravenous q10 min PRN Gordon, Leon B, DO 0.5 mg at 02/22/251926 hydromorphone 20 mg in NS 100 mL infusion (200 mcg/mL) 0.25-2 mg/hr Intravenous Titrated Gordon, Leon B, DO 1.25 mL/hr at 02/22/251926 0.25 mg/hr at 02/22/251926 ipratropium-albuterol (Duo-Neb) 0.5-2.5 mg/3 mL nebulizer solution 3 mL 3 mL Nebulization Once Gordon, Leon B, DO mupirocin (Bactroban) 2 % [...] patient with the resident/fellow via [facility] ICU audio- visual support as available. [...] CTHAP: no acute findings Steroids in ED [facility] ED -> transferred here. VBG completed [...] Daily Order ID Start Status Ordering Provider [id number] 02/23/25 0800 Ordered MORTONLUDA Stevens 02/24/25 0600 [...] Continuous Order ID Start Status Ordering Provider [id number] 02/22/25 1859 Ordered LUDA MORTON [id number] 02/22/25 2000 Completed LUDA MORTON [id number] 02/23/25 0800 Ordered LUDA MORTON T 02/23/251999 Scheduled MORTONLUDA 02/24/25 0800 Scheduled MORTON, LUDA Cisneros 02/24/251999 Scheduled MORTON, LUDA T 02/25/25 0800 Scheduled MORTON, LUDA T 02/25/251999 Scheduled MORTON LUDA Cisneros 02/26/25 0800 Scheduled MORTON, LUDA Cisneros 02/26/251999 Scheduled MORTON, LUDA Cisneros Ordered MORTON LUDA Cisneros 02/22/251857 End Tidal co2 Monitoring Continuous Order ID Start Status Ordering Provider [id number] 02/22/251858 Ordered MORTONLUDA Stevens [id number] 02/22/251999 Completed MORTON LUDA Cisneros [id number] 02/23/25 08 Ordered MORTON LUDA Cisneros 02/23/251999 [...] mucosal integrityUntil discontinued Ordered LUDA MORTON 02/22/251857 [place] teeth every 12 hours Until discontinued Ordered [...] intracranial process but multiple chronic infarcts and zswo-mg-vstneamn small-vessel disease. Additionally CT angio of the [...] ranges. Lactate also normal at [facility]. No further advanced imaging was required [...] COPD (chronic obstructive pulmonary disease) (CMS/[facility]) Depression Fibromyalgia History of falling [...] BREAST SURGERY N/A Breast Surgery Reconstruction from [facility] BREAST SURGERY N/A Breast Surgery from [facility] CHOLECYSTECTOMY N/A Cholecystotomy from [facility] KIDNEY SURGERY N/A Kidney Surgery from [facility] KNEE SURGERY N/A Knee Surgery from [facility] MASTECTOMY N/A Breast Surgery Mastectomy from [facility] SHOULDER SURGERY Right Shoulder Surgery Right from [facility] [3] Family History Problem Relation Name Age [...] unaware of what reaction. Pedi-Pre Tape [place] [Wound Dressing Adhesive] Rash Wellbutrin [Bupropion] Rash [...] Description 04/08/2025 9:20 AM EDT Office Visit [facility] [address] [place] [address] Cayla Erazo, WASHHOUSE WORKER, DNP [address] [place] [address] 05/16/2025 8:00 AM EDT Office Visit [facility] [place] [address], [address] [place] [address] Karly Gracia MD [address] [place] [address] 06/07/2025 1:00 PM EDT Office Visit [facility] [address] [place] [address] Tom Iraheta MD [address] [place] [address] documented as of this encounter [...] EDT EXTUBATION Routine 02/24/2025 9:49 AM EDT [facility], E/M 30-74 MINUTES Routine 02/24/2025 7:08 AM EDT Acute respiratory failure with hypoxia and hypercapnia Acute kidney injury superimposed on CKD ([facility]) Chronic kidney disease, stage 3a ([facility]) Hyponatremia Acute encephalopathy Sepsis with encephalopathy without septic shock, due to unspecified organism ([facility]) Chronic diastolic (congestive) heart failure ([facility]) POCT GLUCOSE METER UNSOLICITED RESULTS [...] AND TREAT Routine 02/23/2025 10:25 AM EDT [facility], E/M 30-74 MINUTES Routine 02/23/2025 9:10 AM EDT Acute respiratory failure with hypoxia and hypercapnia Acute kidney injury superimposed on CKD ([facility]) Chronic kidney disease, stage 3a ([facility]) Hyponatremia Acute encephalopathy Sepsis with encephalopathy without septic shock, due to unspecified organism ([facility]) SODIUM, PLASMA Timed 02/23/2025 8:34 [...] POCT glucose meter (03/02/2025 8:13 AM EDT) [facility] POCT Glucose 188(H) 74 - 99 [...] Comment 03/02/2025 8:14 AM EDT HEALTHCARE LAB Torpedoman'S Mate ID YvroseStefanie frausto 025 8:14 AM EDT [facility] Device ID [id number] 03/02/2025 8:14 AM EDT [facility] Specimen Type POC Capillary 03/02/2025 8:14 AM EDT [facility] Blood Capillary blood specimen / Unknown 03/02/2025 8:13 AM EDT 03/02/2025 8:14 AM EDT Madonna Mani [facility] POINT OF CARE TE ST DOCKED DEVICE UNSOLICITED RESULTS Final Result Performing Organization Address City/State/[facility] Co de Phone Number HEALTHCARE LAB [address] [place] [address] * (ABNORMAL) POCT glucose meter (03/01/2025 7:46 PM EDT) [facility] POCT Glucose 134(H) 74 - 99 [...] 03/01/2025 7:47 PM EDT [facility] Torpedoman'S Mate ID Kamron Freire 03/01/2025 7:47 PM EDT [facility] Device ID [id number] 03/01/2025 7:47 PM EDT [facility] Specimen Type POC Capillary 03/01/2025 7:47 PM EDT [facility] Blood Capillary blood specimen / Unknown 03/01/2025 7:46 PM EDT 03/01/2025 7:47 PM EDT us Madonna Singleton MD LAB POINT OF CARE TE ST DOCKED DEVICE UNSOLICITED RESULTS Final Result Performing Organization Address City/[facility]/ZIP Co de Phone Number [facility] [address] [place] [address] * (ABNORMAL) POCT glucose meter (03/01/2025 5:42 [...] 03/01/2025 5:45 PM EDT [facility] Torpedoman'S Mate ID Norberto Smyth 03/01/20 5:45 PM EDT [facility] Device ID [id number] 03/01/2025 5:45 PM EDT [facility] Specimen Type POC Capillary 03/01/2025 5:45 PM EDT HEALTHCARE LAB Blood Capillary blood specimen / Unknown 03/01/2025 5:42 PM EDT 03/01/2025 5:45 PM EDT us Madonna Singleton MD LAB POINT OF CARE TE ST DOCKED DEVICE UNSOLICITED RESULTS Final Result Performing Organization Address City/[facility]/ZIP Co de Phone Number [facility] [address] [place] [address] * SEND HECTOR MESSAGE (03/01/2025 4:15 PM EDT) Urine Urine specimen obtained by clean catch procedure / Unknown Non-blood Collection / Unknown 03/01/2025 4:15 PM EDT 03/01/2025 4:26 PM EDT us Madonna Mani [facility] URINE ORDERABLES Final Resul t [facility] [address] [place] [address] * (ABNORMAL) Urine Culture (03/01/2025 4:15 PM EDT) Culture 10,000 - 100,000 CFU/mL Enterobacter cloacae complex(A) CHRISTIANO 03/05/2025 12:12 PM EDT [facility] Comment: This isolate has been identified using the FDA Approved [place] System Edited result: Previously reported as [...] >16/8 ug/ml: Resistant Enterobacter cloacae complex Aztreonam CHRISTAINO >16 ug/ml: Resistant Enterobacter cloacae complex Cefazolin [...] ORDER GIO Final Result Performing Organization Address [facility] Co de Phone Number [facility] [address] [place] [address] * Urinalysis Microscopic Examination (03/01/2025 4:15 PM EDT) Urine Urine specimen obtained by clean catch procedure / Unknown Non-blood Collection / Unknown 03/01/2025 4:15 PM EDT 03/01/2025 4:26 PM EDT us Madonna Singleton MD LAB URINE ORDERABLES Final Resul t Performing Organization Address [facility] de Phone Number [facility] [address] [place] [address] * Urine Salmon Panel (03/01/2025 4:15 PM EDT) Extra Sent for Culture 03/01/2025 6:01 PM EDT [facility] Urine Urine specimen obtained by clean catch procedure / Unknown Non-blood Collection / Unknown 03/01/2025 4:15 PM EDT 03/01/2025 4:26 PM EDT us Madonna Singleton MD LAB URINE ORDERABLES Final Resul t Performing Organization Address [facility] Co de Phone Number [facility] [address] [place] [address] * (ABNORMAL) Urinalysis with reflex microscopic (Culture NOT Included) (03/01/2025 4:15 PM EDT) Color, Urine Yellow LAB URINALYSIS - AUTOMATED METHOD 03/01/2025 4:34 PM EDT [facility] Clarity, Urine Cloudy LAB URINALYSIS - AUTOMATED METHOD 03/01/2025 4:34 PM EDT [facility] Spec Rye, Urine 1.008 1.005 - 1.030 LAB URINALYSIS - AUTOMATED METHOD 03/01/2025 4:34 PM EDT [facility] pH, Urine 6.5 5.0 - 8.0 LAB URINALYSIS - AUTOMATED METHOD 03/01/2025 4:34 PM EDT [facility] Protein, Urine 30(A) Negative mg/dL LAB URINALYSIS - AUTOMATED METHOD 03/01/2025 4:34 PM EDT [facility] Glucose, Urine Negative Negative mg/dL LAB URINALYSIS - AUTOMATED METHOD 03/01/2025 4:34 PM EDT [facility] Ketones, Urine Negative Negative mg/dL LAB URINALYSIS - AUTOMATED METHOD 03/01/2025 4:34 PM EDT [facility] Blood, Urine Large(A) Negative LAB URINALYSIS - AUTOMATED METHOD 03/01/2025 4:34 PM EDT [facility] Bilirubin, Urine Negative Negative LAB URINALYSIS - AUTOMATED METHOD 03/01/2025 4:34 PM EDT [facility] Urobilinogen, Urine 0.2 0.2 to 1.0 mg/dL LAB URINALYSIS - AUTOMATED METHOD 03/01/2025 4:34 PM EDT [facility] Leukocytes, Urine Large(A) Negative LAB URINALYSIS - AUTOMATED METHOD 03/01/2025 4:34 PM EDT [facility] Nitrite, Urine Negative Negative LAB URINALYSIS - AUTOMATED METHOD 03/01/2025 4:34 PM EDT [facility] RBC, Urine >50(A) 0 to 3 /HPF LAB URINALYSIS - AUTOMATED METHOD 03/01/2025 4:34 PM EDT [facility] WBC, Urine >50(A) 0 to 5 /HPF LAB URINALYSIS - AUTOMATED METHOD 03/01/2025 4:34 PM EDT [facility] Squamous Epithelial Cells 3 - 5 0 to 5 /HPF LAB URINALYSIS - AUTOMATED METHOD 03/01/2025 4:34 PM EDT [facility] Hyaline Casts 0 - 2 0 to 5 /LPF LAB URINALYSIS - AUTOMATED METHOD 03/01/2025 4:34 PM EDT [facility] Bacteria, Urine Negative Negative LAB URINALYSIS - AUTOMATED METHOD 03/01/2025 4:34 PM EDT [facility] Urine Urine specimen obtained by clean catch procedure / Unknown Non-blood Collection / Unknown 03/01/2025 4:15 PM EDT 03/01/2025 4:26 PM EDT us Madonna Singleton MD LAB URINE ORDERABLES Final Resul t [facility] [address] [place] [address] * (ABNORMAL) POCT glucose meter (03/01/2025 12:03 [...] Comment 03/01/2025 12:05 PM EDT HEALTHCARE LAB Torpedoman'S Mate ID oRcky, Serenity 03/01/2025 12:05 PM EDT HEALTHCARE LAB Device ID [id number] 03/01/2025 12:05 PM EDT [facility] Specimen Type POC Capillary 03/01/2025 12:05 PM EDT [facility] Blood Capillary blood specimen / Unknown 03/01/2025 12:03 PM EDT 03/01/2025 12:05 PM EDT us Madonna Singleton MD LAB POINT OF CARE TE ST DOCKED DEVICE UNSOLICITED RESULTS Final Result [facility]ARE LAB [address] [place] [address] * (ABNORMAL) POCT glucose meter (03/01/2025 7:59 [...] Comment 03/01/2025 8:01 AM EDT HEALTHCARE LAB Torpedoman'S Mate ID Nancy Hidalgo 03/01/2025 8:01 AM EDT HEALTHCARE LAB Device ID [id number] 03/01/2025 8:01 AM EDT HEALTHCARE LAB Specimen Type POC Capillary 03/01/2025 8:01 AM EDT [facility] Blood Capillary blood specimen / Unknown 03/01/2025 7:59 AM EDT 03/01/2025 8:01 AM EDT us Madonna Mani [facility] POINT OF CARE TE ST DOCKED DEVICE UNSOLICITED RESULTS Final Result Performing Organization Address City/State/[facility] Co de Phone Number HEALTHCARE LAB [address] [place] [address] * (ABNORMAL) CBC and Differential (03/01/2025 4:08 AM EDT) WBC Count 6.83 3.70 - 10.30 10*3/uL LAB HEMATOLOGY METHOD 03/01/2025 4:54 AM EDT [facility] RBC Count 3.61(L) 3.90 - 5.20 10*6/uL LAB HEMATOLOGY METHOD 03/01/2025 4:54 AM EDT [facility] HGB 9.2(L) 11.2 - 15.7 g/dL LAB HEMATOLOGY METHOD 03/01/2025 4:54 AM EDT [facility] HCT 29.9(L) 34.0 - 45.0 % LAB HEMATOLOGY METHOD 03/01/2025 4:54 AM EDT [facility] Platelet Count 294 155 - 369 10*3/uL LAB HEMATOLOGY METHOD 03/01/2025 4:54 AM EDT [facility] MCV 83 79 - 98 fL LAB HEMATOLOGY METHOD 03/01/2025 4:54 AM EDT [facility] MCH 25.5(L) 26.0 - 32.0 pg LAB HEMATOLOGY METHOD 03/01/2025 4:54 AM EDT [facility] MCHC 30.8 30.7 - 35.5 g/dL LAB HEMATOLOGY METHOD 03/01/2025 4:54 AM EDT [facility] RDW 15.1(H) 11.5 - 14.5 % LAB HEMATOLOGY METHOD 03/01/2025 4:54 AM EDT [facility] MPV 9.2 8.8 - 12.5 fL LAB HEMATOLOGY METHOD 03/01/2025 4:54 AM EDT [facility] nRBC 0.0 <=0.0 per 100 WBCs LAB HEMATOLOGY METHOD 03/01/2025 4:54 AM EDT [facility] Differential Type Automated LAB HEMATOLOGY METHOD 03/01/2025 4:54 AM EDT [facility] Neutrophils % 56 % LAB HEMATOLOGY METHOD 03/01/2025 4:54 AM EDT [facility] Lymphocytes % 25 % LAB HEMATOLOGY METHOD 03/01/2025 4:54 AM EDT [facility] Monocytes % 11 % LAB HEMATOLOGY METHOD 03/01/2025 4:54 AM EDT [facility] Eosinophils % 6 % LAB HEMATOLOGY METHOD 03/01/2025 4:54 AM EDT [facility] Basophils % 1 % LAB HEMATOLOGY METHOD 03/01/2025 4:54 AM EDT [facility] Immature Granulocytes % 1 % LAB HEMATOLOGY METHOD 03/01/2025 4:54 AM EDT [facility] Neutrophils Absolute 3.86 1.60 - 6.10 10*3/uL LAB HEMATOLOGY METHOD 03/01/2025 4:54 AM EDT [facility] Lymphocytes Absolute 1.70 1.20 - 3.90 10*3/uL LAB HEMATOLOGY METHOD 03/01/2025 4:54 AM EDT [facility] Monocytes Absolute 0.74 0.30 - 0.90 10*3/uL LAB HEMATOLOGY METHOD 03/01/2025 4:54 AM EDT [facility] Eosinophils Absolute 0.44 0.00 - 0.50 10*3/uL LAB HEMATOLOGY METHOD 03/01/2025 4:54 AM EDT [facility] Basophils Absolute 0.05 0.00 - 0.10 10*3/uL LAB HEMATOLOGY METHOD 03/01/2025 4:54 AM EDT [facility] Immature Granulocytes Absolute 0.04 0.00 - 0.06 10*3/uL LAB HEMATOLOGY METHOD 03/01/2025 4:54 AM EDT [facility] Blood Venous blood specimen / Unknown Venipuncture / Unknown 03/01/2025 4:08 AM EDT 03/01/2025 4:42 AM EDT Narrative [facility] - 03/01/2025 4:54 AM EDT Therapeutic decision making should be based on absolute values, rather than percentages. us Madonna Singleton MD LAB BLOOD ORDERABLES Final Resul t Performing Organization Address City/[facility]/ZIP Co de Phone Number [facility] [address] [place] [address] * Magnesium, Plasma (03/01/2025 4:08 AM EDT) Magnesium, Plasma 2.0 1.9 - 2.4 mg/dL 03/01/2025 5:14 AM EDT [facility] Blood Venous blood specimen / Unknown Venipuncture / Unknown 03/01/2025 4:08 AM EDT 03/01/2025 4:43 AM EDT us Madonna Singleton MD LAB BLOOD ORDERABLES Final Resul t Performing Organization Address City/[facility]/ZIP Co de Phone Number [facility] [address] [place] [address] * (ABNORMAL) Basic Metabolic Panel, Plasma (03/01/2025 4:08 AM EDT) Glucose, Plasma 205(H) 74 - 99 mg/dL 03/01/2025 5:14 AM EDT [facility] BUN, Plasma 40(H) 8 - 23 mg/dL 03/01/2025 5:14 AM EDT [facility] Creatinine, Plasma 1.84(H) 0.60 - 1.10 mg/dL 03/01/2025 5:14 AM EDT [facility] BUN/Creatinine Ratio 22 03/01/2025 5:14 AM EDT [facility] Sodium, Plasma 125(L) 136 - 145 mmol/L 03/01/2025 5:14 AM EDT [facility] Potassium, Plasma 4.5 3.6 - 4.9 mmol/L 03/01/2025 5:14 AM EDT [facility] Chloride, Plasma 91(L) 97 - 107 mmol/L 03/01/2025 5:14 AM EDT [facility] CO2, Plasma 23 22 - 29 mmol/L 03/01/2025 5:14 AM EDT [facility] Anion Gap 11 6 - 16 mmol/L 03/01/2025 5:14 AM EDT [facility] Total Calcium, Plasma 8.8(L) 8.9 - 10.2 mg/dL 03/01/2025 5:14 AM EDT [facility] eGFRcr 30.1 mL/min/1.7 3m*2 03/01/2025 5:14 AM EDT [facility] Comment:Reported eGFRcr in m L/min/1.73m2 is based the CKD-EPI 2020 equation that does not use a race coefficient. Blood Venous blood specimen / Unknown Venipuncture / Unknown 03/01/2025 4:08 AM EDT 03/01/2025 4:43 AM EDT us Madonna Singleton MD LAB BLOOD ORDERABLES Final Resul t Performing Organization Address City/[facility]/ZIP Co de Phone Number [facility] [address] [place] [address] * Phosphorus, Plasma (03/01/2025 4:08 AM EDT) Phosphorus, Plasma 4.4 2.5 - 4.5 mg/dL 03/01/2025 5:14 AM EDT [facility] Blood Venous blood specimen / Unknown Venipuncture / Unknown 03/01/2025 4:08 AM EDT 03/01/2025 4:43 AM EDT us Madonna Singleton MD LAB BLOOD ORDERABLES Final Resul t Performing Organization Address City/[facility]/ZIP Co de Phone Number [facility] [address] [place] [address] * (ABNORMAL) POCT glucose meter (03/01/2025 3:09 AM EDT) [facility] POCT Glucose 187(H) 74 - 99 [...] Comment 03/01/2025 3:35 AM EDT HEALTHCARE LAB Torpedoman'S Mate ID Pat Young 03/01/2025 3:35 AM EDT [facility] LAB Device ID [id number] 03/01/2025 3:35 AM EDT HEALTHCARE LAB Specimen Type POC Capillary 03/01/2025 3:35 AM EDT [facility] Blood Capillary blood specimen / Unknown 03/01/2025 3:09 AM EDT 03/01/2025 3:35 AM EDT Madonna Singleton MD LAB POINT OF CARE TE ST DOCKED DEVICE UNSOLICITED RESULTS Final Result Performing Organization Address City/State/[facility] Co de Phone Number HEALTHCARE LAB [address] [place], [place] [id number] * (ABNORMAL) POCT glucose meter (02/28/2025 8:25 PM EDT) [facility] POCT Glucose 258(H) 74 - 99 [...] 02/28/2025 8:42 PM EDT [facility] Torpedoman'S Mate ID Pat Young 02/28/2025 8:42 PM EDT [facility]ALTH[facility]ARE LAB Device ID [id number] 02/28/2025 8:42 PM EDT [facility] Specimen Type POC Capillary 02/28/2025 8:42 PM EDT [facility] Blood Capillary blood specimen / Unknown 02/28/2025 8:25 PM EDT 02/28/2025 8:42 PM EDT us Madonna Singleton MD LAB POINT OF CARE TE ST DOCKED DEVICE UNSOLICITED RESULTS Final Result Performing Organization Address City/[facility] Co de Phone Number HEALTHCARE LAB [address] [place] [address] * (ABNORMAL) POCT glucose meter (02/28/2025 4:59 PM EDT) Pathologist [facility] POCT Glucose 300(H) 74 - 99 mg/dL [...] Comment 02/28/2025 5:00 PM EDT [facility]ALTH[facility]ARE [facility] Torpedoman'S Mate ID Rocky, Serenity 02/28/2025 5:00 PM EDT HEALTHCARE LAB Device ID [id number] 02/28/2025 5:00 PM EDT HEALTHCARE LAB Specimen Type POC Capillary 02/28/2025 5:00 PM EDT [facility] Blood Capillary blood specimen / Unknown 02/28/2025 4:59 PM EDT 02/28/2025 5:00 PM EDT us Madonna Singleton MD LAB POINT OF CARE TE ST DOCKED DEVICE UNSOLICITED RESULTS Final Result Performing Organization Address City/[facility]/ZIP Co de Phone Number HEALTHCARE LAB [address] [place] [address] * (ABNORMAL) CBC and Differential (02/28/2025 1:04 PM EDT) WBC Count 7.39 3.70 - 10.30 10*3/uL LAB HEMATOLOGY METHOD 02/28/2025 1:37 PM EDT [facility] RBC Count 4.30 3.90 - 5.20 10*6/uL LAB HEMATOLOGY METHOD 02/28/2025 1:37 PM EDT [facility] HGB 11.0(L) 11.2 - 15.7 g/dL LAB HEMATOLOGY METHOD 02/28/2025 1:37 PM EDT [facility] HCT 35.0 34.0 - 45.0 % LAB HEMATOLOGY METHOD 02/28/2025 1:37 PM EDT [facility] Platelet Count 399(H) 155 - 369 10*3/uL LAB HEMATOLOGY METHOD 02/28/2025 1:37 PM EDT [facility] MCV 81 79 - 98 fL LAB HEMATOLOGY METHOD 02/28/2025 1:37 PM EDT [facility] MCH 25.6(L) 26.0 - 32.0 pg LAB HEMATOLOGY METHOD 02/28/2025 1:37 PM EDT [facility] MCHC 31.4 30.7 - 35.5 g/dL LAB HEMATOLOGY METHOD 02/28/2025 1:37 PM EDT [facility] RDW 15.5(H) 11.5 - 14.5 % LAB HEMATOLOGY METHOD 02/28/2025 1:37 PM EDT [facility] MPV 9.0 8.8 - 12.5 fL LAB HEMATOLOGY METHOD 02/28/2025 1:37 PM EDT [facility] nRBC 0.0 <=0.0 per 100 WBCs LAB HEMATOLOGY METHOD 02/28/2025 1:37 PM EDT [facility] Differential Type Automated LAB HEMATOLOGY METHOD 02/28/2025 1:37 PM EDT [facility] Neutrophils % 62 % LAB HEMATOLOGY METHOD 02/28/2025 1:37 PM EDT [facility] Lymphocytes % 21 % LAB HEMATOLOGY METHOD 02/28/2025 1:37 PM EDT [facility] Monocytes % 9 % LAB HEMATOLOGY METHOD 02/28/2025 1:37 PM EDT [facility] Eosinophils % 6 % LAB HEMATOLOGY METHOD 02/28/2025 1:37 PM EDT [facility] Basophils % 1 % LAB HEMATOLOGY METHOD 02/28/2025 1:37 PM EDT [facility] Immature Granulocytes % 1 % LAB HEMATOLOGY METHOD 02/28/2025 1:37 PM EDT [facility] Neutrophils Absolute 4.64 1.60 - 6.10 10*3/uL LAB HEMATOLOGY METHOD 02/28/2025 1:37 PM EDT [facility] Lymphocytes Absolute 1.54 1.20 - 3.90 10*3/uL LAB HEMATOLOGY METHOD 02/28/2025 1:37 PM EDT [facility] Monocytes Absolute 0.69 0.30 - 0.90 10*3/uL LAB HEMATOLOGY METHOD 02/28/2025 1:37 PM EDT [facility] Eosinophils Absolute 0.41 0.00 - 0.50 10*3/uL LAB HEMATOLOGY METHOD 02/28/2025 1:37 PM EDT [facility] Basophils Absolute 0.05 0.00 - 0.10 10*3/uL LAB HEMATOLOGY METHOD 02/28/2025 1:37 PM EDT [facility] Immature Granulocytes Absolute 0.06 0.00 - 0.06 10*3/uL LAB HEMATOLOGY METHOD 02/28/2025 1:37 PM EDT [facility] Blood Venous blood specimen / Unknown Venipuncture / Unknown 02/28/2025 1:04 PM EDT 02/28/2025 1:28 PM EDT Narrative [facility] - 02/28/2025 1:37 PM EDT Therapeutic decision making should be based on absolute values, rather than percentages. us Madonna Singleton MD LAB BLOOD ORDERABLES Final Resul t [facility] [address] [place] [address] * (ABNORMAL) Magnesium, Plasma (02/28/2025 1:04 PM EDT) Magnesium, Plasma 1.7(L) 1.9 - 2.4 mg/dL 02/28/2025 1:45 PM EDT [facility] Blood Venous blood specimen / Unknown Venipuncture / Unknown 02/28/2025 1:04 PM EDT 02/28/2025 1:14 PM EDT us Madonnaryan Singleton MD LAB BLOOD ORDERABLES Final Resul t [facility] [address] [place] [address] * (ABNORMAL) Basic Metabolic Panel, Plasma (02/28/2025 1:04 PM EDT) Glucose, Plasma 166(H) 74 - 99 mg/dL 02/28/2025 1:45 PM EDT [facility] BUN, Plasma 40(H) 8 - 23 mg/dL 02/28/2025 1:45 PM EDT [facility] Creatinine, Plasma 1.99(H) 0.60 - 1.10 mg/dL 02/28/2025 1:45 PM EDT [facility] BUN/Creatinine Ratio 20 02/28/2025 1:45 PM EDT [facility] Sodium, Plasma 130(L) 136 - 145 mmol/L 02/28/2025 1:45 PM EDT [facility] Potassium, Plasma 4.6 3.6 - 4.9 mmol/L 02/28/2025 1:45 PM EDT [facility] Chloride, Plasma 93(L) 97 - 107 mmol/L 02/28/2025 1:45 PM EDT [facility] CO2, Plasma 24 22 - 29 mmol/L 02/28/2025 1:45 PM EDT [facility] Anion Gap 13 6 - 16 mmol/L 02/28/2025 1:45 PM EDT [facility] Total Calcium, Plasma 9.3 8.9 - 10.2 mg/dL 02/28/2025 1:45 PM EDT [facility] eGFRcr 27.4 mL/min/1.7 3m*2 02/28/2025 1:45 PM EDT [facility] Comment:Reported eGFRcr in m L/min/1.73m2 is based the CKD-EPI 2020 equation that does not use a race coefficient. Blood Venous blood specimen / Unknown Venipuncture / Unknown 02/28/2025 1:04 PM EDT 02/28/2025 1:14 PM EDT us Madonna Singleton MD LAB BLOOD ORDERABLES Final Resul t Performing Organization Address City/[facility]/ZIP Co de Phone Number [facility] [address] [place] [address] * Phosphorus, Plasma (02/28/2025 1:04 PM EDT) [facility] Phosphorus, Plasma 4.1 2.5 - 4.5 mg/dL 02/28/2025 1:45 PM EDT [facility] Blood Venous blood specimen / Unknown Venipuncture / Unknown 02/28/2025 1:04 PM EDT 02/28/2025 1:14 PM EDT us Madonna Singleton MD LAB BLOOD ORDERABLES Final Resul t Performing Organization Address [facility] Co de Phone Number [facility] [address] [place] [address] * (ABNORMAL) POCT glucose meter (02/28/2025 12:17 PM EDT) [facility] POCT Glucose 161(H) 74 - 99 [...] 02/28/2025 12:19 PM EDT [facility] Torpedoman'S Mate ID Malcolm Hidalgoedwardty 02/28/2025 12:19 PM EDT [facility] Device ID [id number] 02/28/2025 12:19 PM EDT [facility] Specimen Type POC Capillary 02/28/2025 12:19 PM EDT [facility]ARE LAB Blood Capillary blood specimen / Unknown 02/28/2025 12:17 PM EDT 02/28/2025 12:19 PM EDT us Madonna Singleton MD LAB POINT OF CARE TE ST DOCKED DEVICE UNSOLICITED RESULTS Final Result Performing Organization Address [facility]/ZIP Co de Phone Number HEALTHCARE LAB [address] [place] [address] * (ABNORMAL) POCT glucose meter (02/27/2025 8:12 PM EDT) [facility] POCT Glucose 211(H) 74 - 99 [...] Comment 02/27/2025 8:14 PM EDT [facility] Torpedoman'S Mate ID Pat Young 02/27/2025 8:14 PM EDT HEALTHCARE LAB Device ID [id number] 02/27/2025 8:14 PM EDT [facility]ALTH[facility]ARE LAB Specimen Type POC Capillary 02/27/2025 8:14 PM EDT [facility]ARE LAB Blood Capillary blood specimen / Unknown 02/27/2025 8:12 PM EDT 02/27/2025 8:14 PM EDT Madonna Singleton MD LAB POINT OF CARE TE ST DOCKED DEVICE UNSOLICITED RESULTS Final Result [facility] [address] [place] [address] * (ABNORMAL) POCT glucose meter (02/27/2025 5:20 PM EDT) [facility] POCT Glucose 171(H) 74 - 99 [...] 02/27/2025 5:21 PM EDT [facility] Torpedoman'S Mate ID Nancy Hidalgo 02/27/2025 5:21 PM EDT [facility] Device ID [id number] 02/27/2025 5:21 PM EDT HEALTHCARE LAB Specimen Type POC Capillary 02/27/2025 5:21 PM EDT [facility]ARE LAB Blood Capillary blood specimen / Unknown 02/27/2025 5:20 PM EDT 02/27/2025 5:21 PM EDT us Madonna Singleton MD LAB POINT OF CARE TE ST DOCKED DEVICE UNSOLICITED RESULTS Final Result [facility] [address] [place] [address] * (ABNORMAL) POCT glucose meter (02/27/2025 12:29 [...] Comment 02/27/2025 12:30 PM EDT [facility] Torpedoman'S Mate ID Daniela Carroll 025 12:30 PM EDT HEALTHCARE LAB Device ID [id number] 02/27/2025 12:30 PM EDT HEALTHCARE LAB Specimen Type POC Capillary 02/27/2025 12:30 PM EDT [facility]ARE LAB Blood Capillary blood specimen / Unknown 02/27/2025 12:29 PM EDT 02/27/2025 12:30 PM EDT us Ludy Hill MD LAB POINT OF CARE TE ST DOCKED DEVICE UNSOLICITED RESULTS Final Result [facility] [address] [place] [address] * XR Panorex (02/27/2025 12:13 PM EDT) [...] in the posterior aspect of tooth #31. Ault wear in tooth number 8, 9 and 23. No periapical lucency Procedure Note Lucas Cristobal MD - 02/27/2025 CLINICAL INDICATION: Odontogenic infection TECHNIQUE: XR PANOREX COMPARISON: None. FINDINGS: Rounded lucency in tooth #6. Aggressive destruction in the posterioraspect of tooth #31. Ault wear in tooth number 8, 9 and [...] 02/27/2025 8:21 AM EDT [facility] Torpedoman'S Mate ID Daniela Carroll 025 8:21 AM EDT [facility] Device ID [id number] 02/27/2025 8:21 AM EDT [facility] Specimen Type POC Capillary 02/27/2025 8:21 AM EDT [facility]ARE LAB Blood Capillary blood specimen / Unknown 02/27/2025 8:19 AM EDT 02/27/2025 8:21 AM EDT us Ludy Hill MD LAB POINT OF CARE TE ST DOCKED DEVICE UNSOLICITED RESULTS Final Result [facility] [address] [place] [address] * (ABNORMAL) POCT glucose meter (02/26/2025 7:37 [...] Comment 02/26/2025 7:38 PM EDT HEALTH[facility]ARE LAB Torpedoman'S Mate ID Daniela Mcbride 02/26/2025 7:38 PM EDT HEALTHCARE LAB Device ID [id number] 02/26/2025 7:38 PM EDT [facility] Specimen Type POC Capillary 02/26/2025 7:38 PM EDT [facility] Blood Capillary blood specimen / Unknown 02/26/2025 7:37 PM EDT 02/26/2025 7:38 PM EDT us Ludy Hill MD LAB POINT OF CARE TE ST DOCKED DEVICE UNSOLICITED RESULTS Final Result [facility] [address] [place] [address] * (ABNORMAL) POCT glucose meter (02/26/2025 5:16 [...] Comment 02/26/2025 5:18 PM EDT [facility]ARE [facility] Torpedoman'S Mate ID Bassem Jay 02/26/2025 5:18 PM EDT HEALTHCARE LAB Device ID [id number] 02/26/2025 5:18 PM EDT HEALTHCARE LAB Specimen Type POC Capillary 02/26/2025 5:18 PM EDT [facility]ARE LAB Blood Capillary blood specimen / Unknown 02/26/2025 5:16 PM EDT 02/26/2025 5:18 PM EDT us Ludy Hill MD LAB POINT OF CARE TE ST DOCKED DEVICE UNSOLICITED RESULTS Final Result Performing Organization Address City/State/[facility] Co de Phone Number HEALTHCARE LAB [address] [place] [address] * (ABNORMAL) POCT glucose meter (02/26/2025 1:08 PM EDT) [facility] Signature POCT Glucose 223(H) 74 - 99 [...] Comment 02/26/2025 1:09 PM EDT [facility]ALTH[facility]ARE [facility] Torpedoman'S Mate ID Bassem Jay 02/26/2025 1:09 PM EDT HEALTHCARE LAB Device ID [id number] 02/26/2025 1:09 PM EDT HEALTHCARE LAB Specimen Type POC Capillary 02/26/2025 1:09 PM EDT [facility]ALTH[facility]ARE LAB Blood Capillary blood specimen / Unknown 02/26/2025 1:08 PM EDT 02/26/2025 1:09 PM EDT us Ludy Hill MD LAB POINT OF CARE TE ST DOCKED DEVICE UNSOLICITED RESULTS Final Result [facility] [address] [place] [address] * (ABNORMAL) POCT glucose meter (02/26/2025 9:45 [...] for testing. Comment 02/26/2025 9:46 AM EDT [facility] Torpedoman'S Mate ID Bassem Jay 02/26/2025 9:46 AM EDT [facility] LAB Device ID [id number] 02/26/2025 9:46 AM EDT [facility] Specimen Type POC Capillary 02/26/2025 9:46 AM EDT [facility] Blood Capillary blood specimen / Unknown 02/26/2025 9:45 AM EDT 02/26/2025 9:46 AM EDT us Ludy Hill MD LAB POINT OF CARE TE ST DOCKED DEVICE UNSOLICITED RESULTS Final Result [facility] [address] [place] [address] * (ABNORMAL) Hemogram (CBC) (02/26/2025 4:51 AM EDT) WBC Count 7.59 3.70 - 10.30 10*3/uL LAB HEMATOLOGY METHOD 02/26/2025 5:25 AM EDT [facility] RBC Count 4.00 3.90 - 5.20 10*6/uL LAB HEMATOLOGY METHOD 02/26/2025 5:25 AM EDT [facility] HGB 10.3(L) 11.2 - 15.7 g/dL LAB HEMATOLOGY METHOD 02/26/2025 5:25 AM EDT [facility] HCT 32.3(L) 34.0 - 45.0 % LAB HEMATOLOGY METHOD 02/26/2025 5:25 AM EDT [facility] Platelet Count 375(H) 155 - 369 10*3/uL LAB HEMATOLOGY METHOD 02/26/2025 5:25 AM EDT [facility] MCV 81 79 - 98 fL LAB HEMATOLOGY METHOD 02/26/2025 5:25 AM EDT [facility] MCH 25.8(L) 26.0 - 32.0 pg LAB HEMATOLOGY METHOD 02/26/2025 5:25 AM EDT [facility] MCHC 31.9 30.7 - 35.5 g/dL LAB HEMATOLOGY METHOD 02/26/2025 5:25 AM EDT [facility] RDW 15.5(H) 11.5 - 14.5 % LAB HEMATOLOGY METHOD 02/26/2025 5:25 AM EDT [facility] MPV 8.9 8.8 - 12.5 fL LAB HEMATOLOGY METHOD 02/26/2025 5:25 AM EDT [facility] nRBC 0.0 <=0.0 per 100 WBCs LAB HEMATOLOGY METHOD 02/26/2025 5:25 AM EDT [facility] Blood Venous blood specimen / Unknown Venipuncture / Unknown 02/26/2025 4:51 AM EDT 02/26/2025 5:12 AM EDT us Ludy Hill MD LAB BLOOD ORDERABLES Final Resul t [facility] [address] [place] [address] * (ABNORMAL) Magnesium, Plasma (02/26/2025 4:51 AM EDT) Magnesium, Plasma 1.7(L) 1.9 - 2.4 mg/dL 02/26/2025 5:54 AM EDT [facility] Blood Venous blood specimen / Unknown Venipuncture / Unknown 02/26/2025 4:51 AM EDT 02/26/2025 5:13 AM EDT us Ludy Hill MD LAB BLOOD ORDERABLES Final Resul t [facility] [address] [place] [address] * (ABNORMAL) Renal function panel (02/26/2025 4:51 AM EDT) Glucose, Plasma 156(H) 74 - 99 mg/dL 02/26/2025 5:54 AM EDT [facility] BUN, Plasma 26(H) 8 - 23 mg/dL 02/26/2025 5:54 AM EDT [facility] Creatinine, Plasma 1.62(H) 0.60 - 1.10 mg/dL 02/26/2025 5:54 AM EDT [facility] BUN/Creatinine Ratio 16 02/26/2025 5:54 AM EDT [facility] Sodium, Plasma 133(L) 136 - 145 mmol/L 02/26/2025 5:54 AM EDT [facility] Potassium, Plasma 4.2 3.6 - 4.9 mmol/L 02/26/2025 5:54 AM EDT [facility] Chloride, Plasma 96(L) 97 - 107 mmol/L 02/26/2025 5:54 AM EDT [facility] CO2, Plasma 24 22 - 29 mmol/L 02/26/2025 5:54 AM EDT [facility] Anion Gap 13 6 - 16 mmol/L 02/26/2025 5:54 AM EDT [facility] Total Calcium, Plasma 8.9 8.9 - 10.2 mg/dL 02/26/2025 5:54 AM EDT [facility] Phosphorus, Plasma 3.8 2.5 - 4.5 mg/dL 02/26/2025 5:54 AM EDT [facility] Albumin, Plasma 3.5 3.5 - 5.2 g/dL 02/26/2025 5:54 AM EDT [facility] eGFRcr 35.1 mL/min/1.7 3m*2 02/26/2025 5:54 AM EDT [facility] Comment:Reported eGFRcr in m L/min/1.73m2 is based the CKD-EPI 2020 equation that does not use a race coefficient. Blood Venous blood specimen / Unknown Venipuncture / Unknown 02/26/2025 4:51 AM EDT 02/26/2025 5:13 AM EDT us Ludy Hill MD LAB BLOOD ORDERABLES Final Resul t Performing Organization Address City/[facility] Co de Phone Number [facility] [address] [place] [address] * (ABNORMAL) POCT glucose meter (02/25/2025 8:37 PM EDT) [facility] POCT Glucose 289(H) 74 - 99 [...] Comment 02/25/2025 8:39 PM EDT [facility]ALTH[facility]ARE [facility] Torpedoman'S Mate ID Daniela Mcbride 02/25/2025 8:39 PM EDT HEALTHCARE LAB Device ID [id number] 02/25/2025 8:39 PM EDT [facility]ALTHCARE LAB Specimen Type POC Capillary 02/25/2025 8:39 PM EDT [facility] LAB Blood Capillary blood specimen / Unknown 02/25/2025 8:37 PM EDT 02/25/2025 8:39 PM EDT us Ludy Hill MD LAB POINT OF CARE TE ST DOCKED DEVICE UNSOLICITED RESULTS Final Result Performing Organization Address City/[facility]/ZIP Co de Phone Number HEALTHCARE LAB [address] [place] [address] * ECG Adult (02/25/2025 6:38 PM EDT) Pathologist [facility] EKG DIAGNOSIS CLASS Abnormal MUSE ECG Ventricular Rate 68 BPM MUSE ECG Atrial Rate 68 BPM MUSE ECG MA Interval 198 ms MUSE ECG QRSD Interval 136 ms MUSE ECG QT Interval 450 ms MUSE ECG QTC Interval 478 ms MUSE ECG P [place] 71 degrees MUSE ECG R [place] 265 degrees MUSE ECG T Wave [place] 50 degrees MUSE ECG Diagnosis Sinus rhythm with marked sinus arrhythmia MUSE ECG Diagnosis Right bundle branch block MUSE ECG Diagnosis Abnormal ECG MUSE ECG Diagnosis MUSE ECG Diagnosis Confirmed by Karly Gracia ([id number]) on 02/26/2025 3:20:41 PM MUSE ECG 02/25/2025 6:38 PM EDT 02/26/2025 3:20 PM EDT us Ludy Hill MD ECG ORDERABLES Final Result Performing Organization Address City/[facility] Co de Phone Number MUSE ECG [...] 02/25/2025 5:30 PM EDT [facility] Torpedoman'S Mate ID Bassem Jay 02/25/2025 5:30 PM EDT HEALTHCARE LAB Device ID [id number] 02/25/2025 5:30 PM EDT HEALTHCARE LAB Specimen Type POC Capillary 02/25/2025 5:30 PM EDT [facility] LAB Blood Capillary blood specimen / Unknown 02/25/2025 5:28 PM EDT 02/25/2025 5:30 PM EDT us Ludy Hill MD LAB POINT OF CARE TE ST DOCKED DEVICE UNSOLICITED RESULTS Final Result [facility] [address] [place] [address] * (ABNORMAL) POCT glucose meter (02/25/2025 1:08 [...] Comment 02/25/2025 1:09 PM EDT [facility] Torpedoman'S Mate ID Bassem Jay 02/25/2025 1:09 PM EDT HEALTHCARE LAB Device ID [id number] 02/25/2025 1:09 PM EDT HEALTHCARE LAB Specimen Type POC Capillary 02/25/2025 1:09 PM EDT [facility] LAB Blood Capillary blood specimen / Unknown 02/25/2025 1:08 PM EDT 02/25/2025 1:09 PM EDT us Ludy Hill MD LAB POINT OF CARE TE ST DOCKED DEVICE UNSOLICITED RESULTS Final Result [facility] [address] [place] [address] * ECG Adult (02/25/2025 12:27 PM EDT) EKG DIAGNOSIS CLASS Abnormal MUSE ECG Ventricular Rate 79 BPM MUSE ECG Atrial Rate 79 BPM MUSE ECG MA Interval 184 ms MUSE ECG QRSD Interval 134 ms MUSE ECG QT Interval 414 ms MUSE ECG QTC Interval 474 ms MUSE ECG R [place] 229 degrees MUSE ECG T Wave [place] 59 degrees MUSE ECG Diagnosis Sinus rhythm [...] POCT glucose meter (02/25/2025 8:21 AM EDT) [facility] POCT Glucose 128(H) 74 - 99 [...] Comment 02/25/2025 8:22 AM EDT [facility]ALTHCARE LAB Torpedoman'S Mate ID Bassem Jay 02/25/2025 8:22 AM EDT HEALTHCARE LAB Device ID [id number] 02/25/2025 8:22 AM EDT HEALTHCARE LAB Specimen Type POC Capillary 02/25/2025 8:22 AM EDT [facility] Blood Capillary blood specimen / Unknown 02/25/2025 8:21 AM EDT 02/25/2025 8:22 AM EDT Luda Ralph MD LAB POINT OF CARE TE ST DOCKED DEVICE UNSOLICITED RESULTS Final Result Performing Organization Address City/[facility]/ZIP Co de Phone Number [facility] [address] [place] [address] * (ABNORMAL) Cystatin C (02/25/2025 1:36 AM EDT) [facility] Cystatin C 2.37(H) 0.61 - 0.95 mg/L 02/25/2025 2:27 AM EDT [facility] Blood Venous blood specimen / Unknown Venipuncture / Unknown 02/25/2025 1:36 AM EDT 02/25/2025 1:57 AM EDT us Luda Ralph MD LAB BLOOD ORDERABLES Final R esult Performing Organization Address City/[facility]/ZIP Co de Phone Number [facility] [address] [place] [address] * (ABNORMAL) Basic Metabolic Panel, Plasma (02/25/2025 1:36 AM EDT) [facility] Glucose, Plasma 95 74 - 99 mg/dL 02/25/2025 2:27 AM EDT [facility] BUN, Plasma 34(H) 8 - 23 mg/dL 02/25/2025 2:27 AM EDT [facility] Creatinine, Plasma 1.62(H) 0.60 - 1.10 mg/dL 02/25/2025 2:27 AM EDT [facility] BUN/Creatinine Ratio 21 02/25/2025 2:27 AM EDT [facility] Sodium, Plasma 134(L) 136 - 145 mmol/L 02/25/2025 2:27 AM EDT [facility] Potassium, Plasma 3.9 3.6 - 4.9 mmol/L 02/25/2025 2:27 AM EDT [facility] Chloride, Plasma 97 97 - 107 mmol/L 02/25/2025 2:27 AM EDT [facility] CO2, Plasma 23 22 - 29 mmol/L 02/25/2025 2:27 AM EDT [facility] Anion Gap 14 6 - 16 mmol/L 02/25/2025 2:27 AM EDT [facility] Total Calcium, Plasma 8.9 8.9 - 10.2 mg/dL 02/25/2025 2:27 AM EDT [facility] eGFRcr 35.1 mL/min/1.7 3m*2 02/25/2025 2:27 AM EDT [facility] Comment:Reported eGFRcr in m L/min/1.73m2 is based the CKD-EPI 2020 equation that does not use a race coefficient. Blood Venous blood specimen / Unknown Venipuncture / Unknown 02/25/2025 1:36 AM EDT 02/25/2025 1:57 AM EDT us Luda Ralph MD LAB BLOOD ORDERABLES Final R esult [facility] [address] [place] [address] * (ABNORMAL) POCT glucose meter (02/24/2025 8:21 [...] Comment 02/24/2025 8:22 PM EDT [facility] Torpedoman'S Mate ID Daniela Mcbride 02/24/2025 8:22 PM EDT [facility] Device ID [id number] 02/24/2025 8:22 PM EDT [facility] Specimen Type POC Capillary 02/24/2025 8:22 PM EDT [facility] Blood Capillary blood specimen / Unknown 02/24/2025 8:21 PM EDT 02/24/2025 8:22 PM EDT Luda Ralph MD LAB POINT OF CARE TE ST DOCKED DEVICE UNSOLICITED RESULTS Final Result [facility] [address] [place] [address] * POCT glucose meter (02/24/2025 5:55 PM EDT) [facility] POCT Glucose 93 74 - 99 [...] Comment 02/24/2025 5:56 PM EDT [facility] Torpedoman'S Mate ID Delroy Bernal 02/24/2025 5:56 PM EDT [facility] Device ID [id number] 02/24/2025 5:56 PM EDT [facility] Specimen Type POC Capillary 02/24/2025 5:56 PM EDT [facility] Blood Capillary blood specimen / Unknown 02/24/2025 5:55 PM EDT 02/24/2025 5:56 PM EDT us Luda Ralph MD LAB POINT OF CARE TE ST DOCKED DEVICE UNSOLICITED RESULTS Final Result Performing Organization Address [facility] de Phone Number [facility] [address] [place] [address] * (ABNORMAL) POCT glucose meter (02/24/2025 11:26 [...] for testing. Comment 02/24/2025 11:27 AM EDT [facility] Torpedoman'S Mate ID Delroy Bernal 02/24/2025 11:27 AM EDT [facility] Device ID [id number] 02/24/2025 11:27 AM EDT [facility] Specimen Type POC Capillary 02/24/2025 11:27 AM EDT [facility] Blood Capillary blood specimen / Unknown 02/24/2025 11:26 AM EDT 02/24/2025 11:27 AM EDT us Luda Ralph MD LAB POINT OF CARE TE ST DOCKED DEVICE UNSOLICITED RESULTS Final Result Performing Organization Address City/[facility] de Phone Number [facility] [address] [place] [address] * MA CRITICAL CARE, E/M 30-74 MINUTES (02/24/2025 7:08 [...] POCT glucose meter (02/24/2025 5:20 AM EDT) [facility] POCT Glucose 180(H) 74 - 99 mg/dL 02/24/2025 5:22 AM EDT [facility] Comment:Accuracy of a glucos e result [...] testing. Comment 02/24/2025 5:22 AM EDT [facility] Torpedoman'S Mate ID Daniela Mcbride 02/24/2025 5:22 AM EDT [facility] Device ID [id number] 02/24/2025 5:22 AM EDT [facility] Specimen Type POC Capillary 02/24/2025 5:22 AM EDT [facility] Blood Capillary blood specimen / Unknown 02/24/2025 5:20 AM EDT 02/24/2025 5:22 AM EDT Luda Ralph MD LAB POINT OF CARE TE ST DOCKED DEVICE UNSOLICITED RESULTS Final Result [facility] [address] [place] [address] * (ABNORMAL) Cystatin C (02/24/2025 1:01 AM EDT) Pathologist [facility] Cystatin C 2.5(H) 0.61 - 0.95 mg/L 02/24/2025 10:16 AM EDT [facility] Blood Venous blood specimen / Unknown Venipuncture / Unknown 02/24/2025 1:01 AM EDT 02/24/2025 1:06 AM EDT us Luda Ralph MD LAB BLOOD ORDERABLES Final R esult [facility] [address] [place] [address] * (ABNORMAL) CBC and Differential (02/24/2025 1:01 AM EDT) Pathologist [facility] WBC Count 9.39 3.70 - 10.30 10*3/uL LAB HEMATOLOGY METHOD 02/24/2025 1:16 AM EDT [facility] RBC Count 3.53(L) 3.90 - 5.20 10*6/uL LAB HEMATOLOGY METHOD 02/24/2025 1:16 AM EDT [facility] HGB 9.1(L) 11.2 - 15.7 g/dL LAB HEMATOLOGY METHOD 02/24/2025 1:16 AM EDT [facility] HCT 28.3(L) 34.0 - 45.0 % LAB HEMATOLOGY METHOD 02/24/2025 1:16 AM EDT [facility] Platelet Count 315 155 - 369 10*3/uL LAB HEMATOLOGY METHOD 02/24/2025 1:16 AM EDT [facility] MCV 80 79 - 98 fL LAB HEMATOLOGY METHOD 02/24/2025 1:16 AM EDT [facility] MCH 25.8(L) 26.0 - 32.0 pg LAB HEMATOLOGY METHOD 02/24/2025 1:16 AM EDT [facility] MCHC 32.2 30.7 - 35.5 g/dL LAB HEMATOLOGY METHOD 02/24/2025 1:16 AM EDT [facility] RDW 15.2(H) 11.5 - 14.5 % LAB HEMATOLOGY METHOD 02/24/2025 1:16 AM EDT [facility] MPV 9.3 8.8 - 12.5 fL LAB HEMATOLOGY METHOD 02/24/2025 1:16 AM EDT [facility] nRBC 0.0 <=0.0 per 100 WBCs LAB HEMATOLOGY METHOD 02/24/2025 1:16 AM EDT [facility] Differential Type Automated LAB HEMATOLOGY METHOD 02/24/2025 1:16 AM EDT [facility] Neutrophils % 71 % LAB HEMATOLOGY METHOD 02/24/2025 1:16 AM EDT [facility] Lymphocytes % 15 % LAB HEMATOLOGY METHOD 02/24/2025 1:16 AM EDT [facility] Monocytes % 13 % LAB HEMATOLOGY METHOD 02/24/2025 1:16 AM EDT [facility] Eosinophils % 0 % LAB HEMATOLOGY METHOD 02/24/2025 1:16 AM EDT [facility] Basophils % 0 % LAB HEMATOLOGY METHOD 02/24/2025 1:16 AM EDT [facility] Immature Granulocytes % 1 % LAB HEMATOLOGY METHOD 02/24/2025 1:16 AM EDT [facility] Neutrophils Absolute 6.64(H) 1.60 - 6.10 10*3/uL LAB HEMATOLOGY METHOD 02/24/2025 1:16 AM EDT [facility] Lymphocytes Absolute 1.40 1.20 - 3.90 10*3/uL LAB HEMATOLOGY METHOD 02/24/2025 1:16 AM EDT [facility] Monocytes Absolute 1.25(H) 0.30 - 0.90 10*3/uL LAB HEMATOLOGY METHOD 02/24/2025 1:16 AM EDT [facility] Eosinophils Absolute 0.02 0.00 - 0.50 10*3/uL LAB HEMATOLOGY METHOD 02/24/2025 1:16 AM EDT [facility] Basophils Absolute 0.02 0.00 - 0.10 10*3/uL LAB HEMATOLOGY METHOD 02/24/2025 1:16 AM EDT [facility] Immature Granulocytes Absolute 0.06 0.00 - 0.06 10*3/uL LAB HEMATOLOGY METHOD 02/24/2025 1:[address] [facility] Blood Venous blood specimen / Unknown Venipuncture / Unknown 02/24/2025 1:01 AM EDT 02/24/2025 1:06 AM EDT Narrative [facility] - 02/24/2025 1:16 AM EDT Therapeutic decision making should be based on absolute values, rather than percentages. us Luda Ralph MD LAB BLOOD ORDERABLES Final R esult [facility] [address] [place] [address] * (ABNORMAL) Comprehensive metabolic panel (02/24/2025 1:01 AM EDT) Glucose, Plasma 152(H) 74 - 99 mg/dL 02/24/2025 1:44 AM EDT [facility] BUN, Plasma 40(H) 8 - 23 mg/dL 02/24/2025 1:44 AM EDT [facility] Creatinine, Plasma 2.04(H) 0.60 - 1.10 mg/dL 02/24/2025 1:44 AM EDT [facility] BUN/Creatinine Ratio 20 02/24/2025 1:44 AM EDT [facility] Sodium, Plasma 132(L) 136 - 145 mmol/L 02/24/2025 1:44 AM EDT [facility] Potassium, Plasma 4.9 3.6 - 4.9 mmol/L 02/24/2025 1:44 AM EDT [facility] Chloride, Plasma 97 97 - 107 mmol/L 02/24/2025 1:44 AM EDT [facility] CO2, Plasma 22 22 - 29 mmol/L 02/24/2025 1:44 AM EDT [facility] Anion Gap 13 6 - 16 mmol/L 02/24/2025 1:44 AM EDT [facility] Total Calcium, Plasma 8.6(L) 8.9 - 10.2 mg/dL 02/24/2025 1:44 AM EDT [facility] Total Protein 6.9 6.3 - 7.9 g/dL 02/24/2025 1:44 AM EDT [facility] Albumin, Plasma 3.3(L) 3.5 - 5.2 g/dL 02/24/2025 1:44 AM EDT [facility] AST, Plasma 16 10 - 35 U/L 02/24/2025 1:44 AM EDT [facility] Comment:Hemolyzed, result ma y be falsely increased. ALT, Plasma 15 10 - 35 U/L 02/24/2025 1:44 AM EDT [facility] Alkaline Phosphatase, Plasma 105 46 - 142 U/L 02/24/2025 1:44 AM EDT [facility] Total Bilirubin, Plasma <0.2(L) 0.2 - 1.1 mg/dL 02/24/2025 1:44 AM EDT [facility] eGFRcr 26.6 mL/min/1.7 3m*2 02/24/2025 1:44 AM EDT [facility] Comment:Reported eGFRcr in m L/min/1.73m2 is based the CKD-EPI 2020 equation that does not use a race coefficient. Blood Venous blood specimen / Unknown Venipuncture / Unknown 02/24/2025 1:01 AM EDT 02/24/2025 1:06 AM EDT Luda Ralph MD LAB BLOOD ORDERABLES Final R [facility] Performing Organization Address City/[facility]/ZIP Co de Phone Number [facility] [address] [place] [address] * (ABNORMAL) Ionized calcium, whole blood (02/24/2025 1:01 AM EDT) Ionized Calcium, Whole Blood 4.4(L) 4.6 - 5.1 mg/dL LAB HEMATOLOGY METHOD 02/24/2025 1:14 AM EDT [facility] Blood Venous blood specimen / Unknown Venipuncture / Unknown 02/24/2025 1:01 AM EDT 02/24/2025 1:13 AM EDT us Luda Ralph MD LAB BLOOD ORDERABLES Final R esult Performing Organization Address City/[facility]/ZIP Co de Phone Number [facility] [address] [place] [address] * Phosphorus (02/24/2025 1:01 AM EDT) Phosphorus, Plasma 3.0 2.5 - 4.5 mg/dL 02/24/2025 1:44 AM EDT [facility] Blood Venous blood specimen / Unknown Venipuncture / Unknown 02/24/2025 1:01 AM EDT 02/24/2025 1:06 AM EDT Luda Ralph MD LAB BLOOD ORDERABLES Final R esult Performing Organization Address City/[facility] Co de Phone Number [facility] [address] [place] [address] * Magnesium, Plasma (02/24/2025 1:01 AM EDT) Magnesium, Plasma 2.2 1.9 - 2.4 mg/dL 02/24/2025 1:44 AM EDT [facility] Blood Venous blood specimen / Unknown Venipuncture / Unknown 02/24/2025 1:01 AM EDT 02/24/2025 1:06 AM EDT Luda Ralph MD LAB BLOOD ORDERABLES Final R esult Performing Organization Address [facility] [place] [address] * (ABNORMAL) Procalcitonin (02/24/2025 1:01 AM EDT) Procalcitonin, Plasma 0.12(H) <0.09 ng/mL 02/24/2025 1:44 AM EDT [facility] Blood Venous blood specimen / Unknown Venipuncture / Unknown 02/24/2025 1:01 AM EDT 02/24/2025 1:06 AM EDT Narrative [facility] - 02/24/2025 1:44 AM EDT Procalcitonin [...] predict 28 day mortality risk. Please consult [email or web address] for more information. Test performed at [facility], [facility] Laboratory. us Luda Ralph MD LAB BLOOD ORDERABLES Final R esult [facility] [address] [place] [address] * (ABNORMAL) Blood gas panel, venous (02/24/2025 1:01 AM EDT) pH, Venous 7.43 7.32 - 7.43 LAB HEMATOLOGY METHOD 02/24/2025 1:19 AM EDT [facility] pCO2, Venous 40 37 - 52 mmHg LAB HEMATOLOGY METHOD 02/24/2025 1:19 AM EDT [facility] pO2, Venous 143(H) 25 - 40 mmHg LAB HEMATOLOGY METHOD 02/24/2025 1:19 AM EDT [facility] SO2, Measured, Venous 98(H) 65 - 80 % LAB HEMATOLOGY METHOD 02/24/2025 1:19 AM EDT [facility] Base Excess, Venous 1.9 -2.0 - 3.0 mmol/L LAB HEMATOLOGY METHOD 02/24/2025 1:19 AM EDT [facility] Bicarbonate, Calculated, Venous 27(H) 22 - 26 mmol/L LAB HEMATOLOGY METHOD 02/24/2025 1:19 AM EDT [facility] Hematocrit, Whole Blood 27.7(L) 34.0 - 45.0 % LAB HEMATOLOGY METHOD 02/24/2025 1:19 AM EDT [facility] Sodium, Whole Blood 132(L) 136 - 145 mmol/L LAB HEMATOLOGY METHOD 02/24/2025 1:19 AM EDT [facility] Potassium, Whole Blood 4.3 3.6 - 4.9 mmol/L LAB HEMATOLOGY METHOD 02/24/2025 1:19 AM EDT [facility] Chloride, Whole Blood 99 97 - 107 mmol/L LAB HEMATOLOGY METHOD 02/24/2025 1:19 AM EDT [facility] Glucose, Whole Blood 154(H) 74 - 99 mg/dL LAB HEMATOLOGY METHOD 02/24/2025 1:19 AM EDT [facility] Lactate, Venous, Whole Blood 0.9 0.5 - 2.2 mmol/L LAB HEMATOLOGY METHOD 02/24/2025 1:19 AM EDT [facility] Ionized Calcium, Whole Blood 4.2(L) 4.6 - 5.1 mg/dL LAB HEMATOLOGY METHOD 02/24/2025 1:19 AM EDT [facility] Blood Venous blood specimen / Unknown Venipuncture / Unknown 02/24/2025 1:01 AM EDT 02/24/2025 1:13 AM EDT us Luda Ralph MD LAB BLOOD ORDERABLES Final R esult [facility] [address] [place] [address] * (ABNORMAL) POCT glucose meter (02/24/2025 1:00 [...] Comment 02/24/2025 1:02 AM EDT [facility] Torpedoman'S Mate ID Daniela Mcbride 02/24/2025 1:02 AM EDT [facility] Device ID [id number] 02/24/2025 1:02 AM EDT [facility] Specimen Type POC Capillary 02/24/2025 1:02 AM EDT [facility] Blood Capillary blood specimen / Unknown 02/24/2025 1:00 AM EDT 02/24/2025 1:02 AM EDT us Luda Ralph MD LAB POINT OF CARE TE ST DOCKED DEVICE UNSOLICITED RESULTS Final Result Performing Organization Address City/[facility]/ZIP Co de Phone Number [facility] [address] [place] [address] * (ABNORMAL) POCT glucose meter (02/23/2025 5:07 [...] Comment 02/23/2025 5:08 PM EDT [facility] Torpedoman'S Mate ID WetzoldTemi 02/23/2025 5:08 PM EDT [facility]ALTH[facility]ARE LAB Device ID [id number] 02/23/2025 5:08 PM EDT [facility] Specimen Type POC Capillary 02/23/2025 5:08 PM EDT [facility] Blood Capillary blood specimen / Unknown 02/23/2025 5:07 PM EDT 02/23/2025 5:08 PM EDT us uLda Ralph MD LAB POINT OF CARE TE ST DOCKED DEVICE UNSOLICITED RESULTS Final Result Performing Organization Address City/[facility]/ZIP Co de Phone Number [facility] [address] [place] [address] * Sodium, urine, random (02/23/2025 3:12 PM EDT) Sodium, Urine 31 mmol/L 02/23/2025 4:03 PM EDT [facility] Urine Urine specimen from urinary conduit / Unknown Non-blood Collection / Unknown 02/23/2025 3:12 PM EDT 02/23/2025 3:24 PM EDT us Luda Ralph MD LAB URINE ORDERABLES Final R esult [facility] [address] [place] [address] * Osmolality, urine (02/23/2025 3:12 PM EDT) Osmolality, Urine 408 50 - 1,200 mOsm/kg 02/23/2025 3:59 PM EDT [facility] Urine Urine specimen from urinary conduit / Unknown Non-blood Collection / Unknown 02/23/2025 3:12 PM EDT 02/23/2025 3:23 PM EDT us Luda Ralph MD LAB URINE ORDERABLES [place] [address] * Osmolality (02/23/2025 3:04 PM EDT) Osmolality, Serum 289 280 - 301 mOsm/Kg 02/23/2025 4:11 PM EDT [facility] Blood Venous blood specimen / Unknown Venipuncture / Unknown 02/23/2025 3:04 PM EDT 02/23/2025 3:13 PM EDT us Luda Ralph MD LAB BLOOD ORDERABLES Final R esult Performing Organization Address City/[facility]/ZIP Co de Phone Number [facility] [address] [place] [address] * (ABNORMAL) Cystatin C (02/23/2025 3:04 PM EDT) Cystatin C 2.32(H) 0.61 - 0.95 mg/L 02/23/2025 3:44 PM EDT [facility] Blood Venous blood specimen / Unknown Venipuncture / Unknown 02/23/2025 3:04 PM EDT 02/23/2025 3:13 PM EDT us Luda Ralph MD LAB BLOOD ORDERABLES Final R esult Performing Organization Address City/[facility]/ZIP Co de Phone Number [facility] [address] [place] [address] * (ABNORMAL) Sodium (02/23/2025 3:04 PM EDT) [facility] Sodium, Plasma 129(L) 136 - 145 mmol/L 02/23/2025 3:44 PM EDT [facility] Blood Venous blood specimen / Unknown Venipuncture / Unknown 02/23/2025 3:04 PM EDT 02/23/2025 3:13 PM EDT Luda Ralph MD LAB BLOOD ORDERABLES Final R esult [facility] [address] [place] [address] * (ABNORMAL) POCT glucose meter (02/23/2025 11:43 AM EDT) [facility] POCT Glucose 222(H) 74 - 99 [...] Comment 02/23/2025 11:44 AM EDT [facility] Torpedoman'S Mate ID Temi Mao 02/23/2025 11:44 AM EDT [facility]ARE LAB Device ID [id number] 02/23/2025 11:44 AM EDT [facility] Specimen Type POC Capillary 02/23/2025 11:44 AM EDT [facility] Blood Capillary blood specimen / Unknown 02/23/2025 11:43 AM EDT 02/23/2025 11:44 AM EDT us Luda Ralph MD LAB POINT OF CARE TE ST DOCKED DEVICE UNSOLICITED RESULTS Final Result Performing Organization Address City/[facility]/ZIP Co de Phone Number [facility] [address] [place] [address] * Streptococcus pneumoniae and Legionella Urinary Antigen (02/23/2025 11:05 AM EDT) [facility] Legionella pneumophila serogroup 1 Antigen Result (Urine) Negative Negative 02/24/2025 7:01 AM EDT [facility] Streptococcus pneumoniae Antigen Result (Urine) Negative Negative 02/24/2025 7:01 AM EDT [facility] Urine Urine specimen obtained by clean catch procedure / Unknown Non-blood Collection / Unknown 02/23/2025 11:05 AM EDT 02/23/2025 11:16 AM EDT us Luda Ralph MD LAB MICROBIOLOGY - GENERAL O RDERABLES Final Result [facility] [address] [place] [address] * MA CRITICAL CARE, E/M 30-74 MINUTES (02/23/2025 9:10 [...] Plasma 25.9 ug/mL 02/23/2025 9:20 AM EDT [facility] Blood Venous blood specimen / Unknown Venipuncture / Unknown 02/23/2025 8:34 AM EDT 02/23/2025 8:50 AM EDT Luda Ralph MD LAB BLOOD ORDERABLES Final R esult Performing Organization Address City/[facility]/ZIP Co de Phone Number [facility] [address] [place] [address] * (ABNORMAL) Sodium (02/23/2025 8:34 AM EDT) Sodium, Plasma 127(L) 136 - 145 mmol/L 02/23/2025 9:20 AM EDT [facility] Blood Venous blood specimen / Unknown Venipuncture / Unknown 02/23/2025 8:34 AM EDT 02/23/2025 8:50 AM EDT Luda Ralph MD LAB BLOOD ORDERABLES Final R esult Performing Organization Address City/[facility] Co de Phone Number [facility] [address] [place] [address] * (ABNORMAL) Blood gas panel, venous (02/23/2025 8:34 AM EDT) pH, Venous 7.39 7.32 - 7.43 LAB HEMATOLOGY METHOD 02/23/2025 8:52 AM EDT [facility] pCO2, Venous 44 37 - 52 mmHg LAB HEMATOLOGY METHOD 02/23/2025 8:52 AM EDT [facility] pO2, Venous 43(H) 25 - 40 mmHg LAB HEMATOLOGY METHOD 02/23/2025 8:52 AM EDT [facility] SO2, Measured, Venous 77 65 - 80 % LAB HEMATOLOGY METHOD 02/23/2025 8:52 AM EDT [facility] Base Excess, Venous 1.6 -2.0 - 3.0 mmol/L LAB HEMATOLOGY METHOD 02/23/2025 8:52 AM EDT [facility] Bicarbonate, Calculated, Venous 27(H) 22 - 26 mmol/L LAB HEMATOLOGY METHOD 02/23/2025 8:52 AM EDT [facility] Hematocrit, Whole Blood 27.4(L) 34.0 - 45.0 % LAB HEMATOLOGY METHOD 02/23/2025 8:52 AM EDT [facility] Sodium, Whole Blood 128(L) 136 - 145 mmol/L LAB HEMATOLOGY METHOD 02/23/2025 8:52 AM EDT [facility] Potassium, Whole Blood 4.7 3.6 - 4.9 mmol/L LAB HEMATOLOGY METHOD 02/23/2025 8:52 AM EDT [facility] Chloride, Whole Blood 93(L) 97 - 107 mmol/L LAB HEMATOLOGY METHOD 02/23/2025 8:52 AM EDT [facility] Glucose, Whole Blood 242(H) 74 - 99 mg/dL LAB HEMATOLOGY METHOD 02/23/2025 8:52 AM EDT [facility] Lactate, Venous, Whole Blood 1.1 0.5 - 2.2 mmol/L LAB HEMATOLOGY METHOD 02/23/2025 8:52 AM EDT [facility] Ionized Calcium, Whole Blood 4.6 4.6 - 5.1 mg/dL LAB HEMATOLOGY METHOD 02/23/2025 8:52 AM EDT [facility] Blood Venous blood specimen / Unknown Venipuncture / Unknown 02/23/2025 8:34 AM EDT 02/23/2025 8:50 AM EDT us Luda Ralph MD LAB BLOOD ORDERABLES Final R esult [facility] [address] [place] [address] * (ABNORMAL) POCT glucose meter (02/23/2025 5:13 AM EDT) [facility] POCT Glucose 255(H) 74 - 99 mg/dL 02/23/2025 5:14 AM EDT [facility] Comment:Accuracy of a glucos e result [...] Comment 02/23/2025 5:14 AM EDT [facility] Torpedoman'S Mate ID Daniela Mcbride 02/23/2025 5:14 AM EDT HEALTHCARE LAB Device ID [id number] 02/23/2025 5:14 AM EDT HEALTHCARE LAB Specimen Type POC Capillary 02/23/2025 5:14 AM EDT [facility] Blood Capillary blood specimen / Unknown 02/23/2025 5:13 AM EDT 02/23/2025 5:14 AM EDT us Luda Ralph MD LAB POINT OF CARE TE ST DOCKED DEVICE UNSOLICITED RESULTS Final Result Performing Organization Address City/[facility] Co de Phone Number [facility] [address] [place] [address] * (ABNORMAL) POCT glucose meter (02/23/2025 2:11 AM EDT) [facility] POCT Glucose 224(H) 74 - 99 [...] Comment 02/23/2025 2:12 AM EDT [facility] Torpedoman'S Mate ID Daniela Mcbride 02/23/2025 2:12 AM EDT HEALTH[facility]ARE LAB Device ID [id number] 02/23/2025 2:12 AM EDT [facility] LAB Specimen Type POC Capillary 02/23/2025 2:12 AM EDT [facility] Blood Capillary blood specimen / Unknown 02/23/2025 2:11 AM EDT 02/23/2025 2:12 AM EDT us Luda Ralph MD LAB POINT OF CARE TE ST DOCKED DEVICE UNSOLICITED RESULTS Final Result Performing Organization Address City/[facility] Co de Phone Number [facility] [address] [place] [address] * (ABNORMAL) Methicillin Resistant Staphylococcus aureus (MRSA) by PCR (02/23/2025 2:05 AM EDT) Methicillin Resistant Staphylococcus aureus (MRSA) by PCR Detected( A) Not Detected 02/23/2025 4:19 AM EDT [facility] Swab Both anterior nares / Unknown Non-blood Collection / Unknown 02/23/2025 2:05 AM EDT 02/23/2025 3:06 AM EDT Narrative [facility] - 02/23/2025 4:19 AM EDT This [...] MICROBIOLOGY - GENERAL O RDERABLES Final Result [facility] [address] [place] [address] * (ABNORMAL) Nasopharyngeal Respiratory Panel (02/23/2025 2:05 AM EDT) Pathologist [facility] Human Rhinovirus/Ent erovirus PCR Result Detected( A) Not Detected 02/23/2025 5:07 AM EDT [facility] Swab Nasopharyngeal structure / Unknown Non-blood Collection / Unknown 02/23/2025 2:05 AM EDT 02/23/2025 3:06 AM EDT Narrative [facility] - 02/23/2025 5:07 AM EDT This [...] Respiratory PCR Panel is performed using the [employer] ePlex instrument. This test is FDA approved for use with Nasopharyngeal swabs only. This test is used for clinical purposes. It should not be regarded as investigational or for research. The [facility] Clinical Microbiology Laboratory is certified under the Clinical Laboratory Improvement Amendments of 1988 (CLIA-88) as qualified to perform high complexity clinical laboratory testing. Luda Ralph MD LAB MICROBIOLOGY - GENERAL O RDERABLES Final Result Performing Organization Address [facility] Co de Phone Number [facility] [address] [place] [address] * Anti Xa Level Low Molecular Weight (02/23/2025 2:04 AM EDT) Anti Xa Level Low Molecular Weight Heparin 1.12 <2.00 IU/mL LAB COAGULATION METHOD 02/23/2025 2:44 AM EDT [facility] Blood Venous blood specimen / Unknown Venipuncture / Unknown 02/23/2025 2:04 AM EDT 02/23/2025 2:24 AM EDT Narrative [facility] - 02/23/2025 2:44 AM EDT Therapeutic Range: LMWH enoxaparin 1mg/kg/dose, 12hrs - peak (3-5 hours after dose): 0.5 - 1.0 IU/mL LMWH enoxaparin 1.5mg/kg/dose, 24hrs - peak (3-5 hours after dose): 1.0 - 2.0 IU/mL LMWH enoxaparin prophylaxis: Not established Luda Ralph MD LAB BLOOD ORDERABLES Final R esult Performing Organization Address [facility] Co de Phone Number [facility] [address] [place] [address] * (ABNORMAL) Troponin T, High Sensitivity, 2 Hour, Plasma (02/23/2025 2:04 AM EDT) Troponin T, High Sensitivity, 2 Hour 37(H) <14 ng/L 02/23/2025 2:52 AM EDT [facility] Troponin Delta Interpretation Not Calculated 02/23/2025 2:52 AM EDT [facility] Comment:Specimen not collect ed within acceptable timeframe. Delta will not be calculated. Blood Venous blood specimen / Unknown Venipuncture / Unknown 02/23/2025 2:04 AM EDT 02/23/2025 2:24 AM EDT Luda Ralph MD LAB BLOOD ORDERABLES Final R esult Performing Organization Address City/[facility]/ZIP Co de Phone Number [facility] [address] [place] [address] * (ABNORMAL) Sodium (02/23/2025 2:04 AM EDT) Sodium, Plasma 125(L) 136 - 145 mmol/L 02/23/2025 2:45 AM EDT [facility] Blood Venous blood specimen / Unknown Venipuncture / Unknown 02/23/2025 2:04 AM EDT 02/23/2025 2:24 AM EDT Luda Ralph MD LAB BLOOD ORDERABLES Final R esult Performing Organization Address City/[facility]/ZIP Co de Phone Number [facility] [address] [place] [address] * (ABNORMAL) Blood gas panel, venous (02/23/2025 2:04 AM EDT) pH, Venous 7.39 7.32 - 7.43 LAB HEMATOLOGY METHOD 02/23/2025 2:29 AM EDT [facility] pCO2, Venous 43 37 - 52 mmHg LAB HEMATOLOGY METHOD 02/23/2025 2:29 AM EDT [facility] pO2, Venous 71(H) 25 - 40 mmHg LAB HEMATOLOGY METHOD 02/23/2025 2:29 AM EDT [facility] SO2, Measured, Venous 94(H) 65 - 80 % LAB HEMATOLOGY METHOD 02/23/2025 2:29 AM EDT [facility] Base Excess, Venous 0.7 -2.0 - 3.0 mmol/L LAB HEMATOLOGY METHOD 02/23/2025 2:29 AM EDT [facility] Bicarbonate, Calculated, Venous 26 22 - 26 mmol/L LAB HEMATOLOGY METHOD 02/23/2025 2:29 AM EDT [facility] Hematocrit, Whole Blood 26.1(L) 34.0 - 45.0 % LAB HEMATOLOGY METHOD 02/23/2025 2:29 AM EDT [facility] Sodium, Whole Blood 127(L) 136 - 145 mmol/L LAB HEMATOLOGY METHOD 02/23/2025 2:29 AM EDT [facility] Potassium, Whole Blood 4.7 3.6 - 4.9 mmol/L LAB HEMATOLOGY METHOD 02/23/2025 2:29 AM EDT [facility] Chloride, Whole Blood 93(L) 97 - 107 mmol/L LAB HEMATOLOGY METHOD 02/23/2025 2:29 AM EDT [facility] Glucose, Whole Blood 221(H) 74 - 99 mg/dL LAB HEMATOLOGY METHOD 02/23/2025 2:29 AM EDT [facility] Lactate, Venous, Whole Blood 0.9 0.5 - 2.2 mmol/L LAB HEMATOLOGY METHOD 02/23/2025 2:29 AM EDT [facility] Ionized Calcium, Whole Blood 3.7(L) 4.6 - 5.1 mg/dL LAB HEMATOLOGY METHOD 02/23/2025 2:29 AM EDT [facility] Blood Venous blood specimen / Unknown Venipuncture / Unknown 02/23/2025 2:04 AM EDT 02/23/2025 2:25 AM EDT Luda Ralph MD LAB BLOOD ORDERABLES Final R esult [facility] [address] [place] [address] * Vancomycin, random (02/23/2025 12:05 AM EDT) Vancomycin, Random, Plasma <4.0 ug/mL 02/23/2025 12:44 AM EDT [facility] Blood Venous blood specimen / Unknown Venipuncture / Unknown 02/23/2025 12:05 AM EDT 02/23/2025 12:16 AM EDT Luda Ralph MD LAB BLOOD ORDERABLES Final R esult Performing Organization Address City/[facility]/ZIP Co de Phone Number [facility] [address] [place] [address] * (ABNORMAL) Sodium (02/23/2025 12:05 AM EDT) Sodium, Plasma 127(L) 136 - 145 mmol/L 02/23/2025 12:44 AM EDT [facility] Blood Venous blood specimen / Unknown Venipuncture / Unknown 02/23/2025 12:05 AM EDT 02/23/2025 12:17 AM EDT us Luda Ralph MD LAB BLOOD ORDERABLES Final R esult Performing Organization Address [facility]/ZIP Co de Phone Number [facility] [address] [place] [address] * (ABNORMAL) Blood gas panel, venous (02/23/2025 12:05 AM EDT) pH, Venous 7.33 7.32 - 7.43 LAB HEMATOLOGY METHOD 02/23/2025 12:18 AM EDT [facility] pCO2, Venous 50 37 - 52 mmHg LAB HEMATOLOGY METHOD 02/23/2025 12:18 AM EDT [facility] pO2, Venous 60(H) 25 - 40 mmHg LAB HEMATOLOGY METHOD 02/23/2025 12:18 AM EDT [facility] SO2, Measured, Venous 89(H) 65 - 80 % LAB HEMATOLOGY METHOD 02/23/2025 12:18 AM EDT [facility] Base Excess, Venous 0.3 -2.0 - 3.0 mmol/L LAB HEMATOLOGY METHOD 02/23/2025 12:18 AM EDT [facility] Bicarbonate, Calculated, Venous 27(H) 22 - 26 mmol/L LAB HEMATOLOGY METHOD 02/23/2025 12:18 AM EDT [facility] Hematocrit, Whole Blood 28.9(L) 34.0 - 45.0 % LAB HEMATOLOGY METHOD 02/23/2025 12:18 AM EDT [facility] Sodium, Whole Blood 128(L) 136 - 145 mmol/L LAB HEMATOLOGY METHOD 02/23/2025 12:18 AM EDT [facility] Potassium, Whole Blood 4.7 3.6 - 4.9 mmol/L LAB HEMATOLOGY METHOD 02/23/2025 12:18 AM EDT [facility] Chloride, Whole Blood 93(L) 97 - 107 mmol/L LAB HEMATOLOGY METHOD 02/23/2025 12:18 AM EDT [facility] Glucose, Whole Blood 177(H) 74 - 99 mg/dL LAB HEMATOLOGY METHOD 02/23/2025 12:18 AM EDT [facility] Lactate, Venous, Whole Blood 1.7 0.5 - 2.2 mmol/L LAB HEMATOLOGY METHOD 02/23/2025 12:18 AM EDT [facility] Ionized Calcium, Whole Blood 4.4(L) 4.6 - 5.1 mg/dL LAB HEMATOLOGY METHOD 02/23/2025 12:18 AM EDT [facility] Blood Venous blood specimen / Unknown Venipuncture / Unknown 02/23/2025 12:05 AM EDT 02/23/2025 12:16 AM EDT Luda Ralph MD LAB BLOOD ORDERABLES Final R esult Performing Organization Address City/[facility]/ZIP Co de Phone Number [facility] [address] [place] [address] * (ABNORMAL) Troponin T, High Sensitivity, 0 Hour Plasma, Reflex to 2 Hour (02/23/2025 12:05 AM EDT) Troponin T, High Sensitivity, 0 Hour 40(H) <14 ng/L 02/23/2025 12:44 AM EDT [facility] Blood Venous blood specimen / Unknown Venipuncture / Unknown 02/23/2025 12:05 AM EDT 02/23/2025 12:17 AM EDT Luda Ralph MD LAB BLOOD ORDERABLES Final R esult [facility] [address] [place] [address] * (ABNORMAL) Phosphorus, Plasma (02/23/2025 12:05 AM EDT) Phosphorus, Plasma 2.4(L) 2.5 - 4.5 mg/dL 02/23/2025 12:44 AM EDT [facility] Blood Venous blood specimen / Unknown Venipuncture / Unknown 02/23/2025 12:05 AM EDT 02/23/2025 12:17 AM EDT Bobby Parra MD LAB BLOOD ORDERABLES Final R esult Performing Organization Address [facility]/ZIP Co de Phone Number [facility] [address] [place] [address] * (ABNORMAL) Magnesium, Plasma (02/23/2025 12:05 AM EDT) Magnesium, Plasma 2.5(H) 1.9 - 2.4 mg/dL 02/23/2025 12:44 AM EDT [facility] Blood Venous blood specimen / Unknown Venipuncture / Unknown 02/23/2025 12:05 AM EDT 02/23/2025 12:17 AM EDT Bobby Parra MD LAB BLOOD ORDERABLES Final R esult Performing Organization Address City/[facility] Co de Phone Number [facility] [address] [place] [address] * (ABNORMAL) Basic Metabolic Panel, Plasma (02/23/2025 12:05 AM EDT) Glucose, Plasma 180(H) 74 - 99 mg/dL 02/23/2025 12:44 AM EDT [facility] BUN, Plasma 42(H) 8 - 23 mg/dL 02/23/2025 12:44 AM EDT [facility] Creatinine, Plasma 2.26(H) 0.60 - 1.10 mg/dL 02/23/2025 12:44 AM EDT [facility] BUN/Creatinine Ratio 19 02/23/2025 12:44 AM EDT [facility] Sodium, Plasma 127(L) 136 - 145 mmol/L 02/23/2025 12:44 AM EDT [facility] Potassium, Plasma 4.9 3.6 - 4.9 mmol/L 02/23/2025 12:44 AM EDT [facility] Chloride, Plasma 91(L) 97 - 107 mmol/L 02/23/2025 12:44 AM EDT [facility] CO2, Plasma 23 22 - 29 mmol/L 02/23/2025 12:44 AM EDT [facility] Anion Gap 13 6 - 16 mmol/L 02/23/2025 12:44 AM EDT [facility] Total Calcium, Plasma 9.0 8.9 - 10.2 mg/dL 02/23/2025 12:44 AM EDT [facility] eGFRcr 23.5 mL/min/1.7 3m*2 02/23/2025 12:44 AM EDT [facility] Comment:Reported eGFRcr in m L/min/1.73m2 is based the CKD-EPI 2020 equation that does not use a race coefficient. Blood Venous blood specimen / Unknown Venipuncture / Unknown 02/23/2025 12:05 AM EDT 02/23/2025 12:17 AM EDT us Bobby Parra MD LAB BLOOD ORDERABLES Final R esult [facility] [address] [place] [address] * (ABNORMAL) POCT glucose meter (02/23/2025 12:04 [...] Comment 02/23/2025 12:06 AM EDT [facility] Torpedoman'S Mate ID Daniela Mcbride 02/23/2025 12:06 AM EDT [facility] Device ID [id number] 02/23/2025 12:06 AM EDT [facility] Specimen Type POC Capillary 02/23/2025 12:06 AM EDT [facility] Blood Capillary blood specimen / Unknown 02/23/2025 12:04 AM EDT 02/23/2025 12:06 AM EDT Luda Ralph MD LAB POINT OF CARE TE ST DOCKED DEVICE UNSOLICITED RESULTS Final Result Performing Organization Address [facility] Co de Phone Number [facility] [address] [place] [address] * (ABNORMAL) Quantitative BAL/PAL/Bronch Wash Culture and Gram StainProtected Alveolar Lavage (02/23/2025 12:00 AM EDT) Culture [id number] CFU/mL Mixed upper respiratory jesus(A) 02/24/2025 12:09 PM EDT [facility] Comment:The organism value f or this result has been updated. These results have been appended to the previously preliminary verified report. Gram Stain Result Numerous Polymorphonuclear leukocytes(A) 02/24/2025 12:09 PM EDT [facility] Gram Stain Result Numerous Gram positive cocci in pairs(A) 02/24/2025 12:09 PM EDT [facility] Gram Stain Result Moderate Gram positive cocci in clusters(A) 02/24/2025 12:09 PM EDT [facility] Gram Stain Result Moderate Gram positive rods(A) 02/24/2025 12:09 PM EDT [facility] Protected Alveolar Lavage (Protected Alveolar Lavage) 02/23/2025 12:00 AM EDT 02/23/2025 1:17 AM EDT Luda Ralph MD LAB MICROBIOLOGY - GENERAL O RDERABLES Final Result Performing Organization Address City/[facility]/ZIP Co de Phone Number [facility] [address] [place] [address] * ECG Adult (02/22/2025 11:57 PM EDT) EKG DIAGNOSIS CLASS Abnormal MUSE ECG Ventricular Rate 81 BPM MUSE ECG Atrial Rate 81 BPM MUSE ECG MA Interval 204 ms MUSE ECG QRSD Interval 136 ms MUSE ECG QT Interval 428 ms MUSE ECG QTC Interval 497 ms MUSE ECG P Norwood 58 degrees MUSE ECG R [place]wood -72 degrees MUSE ECG T Wave [place] 47 degrees MUSE ECG Diagnosis Normal sinus rhythm MUSE ECG Diagnosis Left axis deviation MUSE ECG Diagnosis Right bundle branch block MUSE ECG Diagnosis Low voltage chest leads MUSE ECG Diagnosis Abnormal ECG MUSE ECG Diagnosis Compared to last ECG MUSE ECG Diagnosis No significant change was found MUSE ECG Diagnosis Confirmed by Carson Multani ([id number]) on 02/23/2025 11:11:42 AM MUSE ECG 02/22/2025 11:5 7 PM EDT 02/23/2025 11:11 AM EDT us Luda Ralph MD ECG ORDERABLES Final Result Performing Organization Address City/[facility]/ZIP Co de Phone Number MUSE ECG * (ABNORMAL) Procalcitonin (02/22/2025 10:03 PM EDT) Procalcitonin, Plasma 0.21(H) <0.09 ng/mL 02/22/2025 10:48 PM EDT [facility] Blood Venous blood specimen / Unknown Venipuncture / Unknown 02/22/2025 10:03 PM EDT 02/22/2025 10:11 PM EDT Narrative [facility] - 02/22/2025 10:48 PM EDT Procalcitonin [...] predict 28 day mortality risk. Please consult [email or web address] for more information. Test performed at [facility], Core Laboratory. Luda Ralph MD LAB BLOOD ORDERABLES Final R esult [facility] [address] [place] [address] * (ABNORMAL) N-Terminal Probnp (02/22/2025 10:03 PM EDT) Pathologist [facility] N-Terminal, PROBNP, Plasma 1,542(H) 0 - 899 pg/mL 02/22/2025 10:48 PM EDT [facility] Blood Venous blood specimen / Unknown Venipuncture / Unknown 02/22/2025 10:03 PM EDT 02/22/2025 10:11 PM EDT Bobby Parra MD LAB BLOOD ORDERABLES Final R esult Performing Organization Address [facility]/[place] [address] * (ABNORMAL) Multi Drug Resistance Test (02/22/2025 10:02 PM EDT) [facility] Culture Methicillin-Resist ant Staphylococcus aureus(AA) 02/24/2025 6:58 AM EDT [facility] Swab (Nares and Samantha Rectal) Non-blood Collection / Unknown 02/22/2025 10:02 PM EDT 02/22/2025 10:16 PM EDT Narrative [facility] - 02/24/2025 6:58 AM EDT This test was developed and its performance characteristics determined by the [facility]. Although the media is FDA-approved, it is not FDA-approved for all specimen types submitted. The FDA has determined that such clearance or approval is not necessary. This test is used for surveillance purposes. It should not be regarded as investigational or for research. The [facility] is certified under the Clinical Laboratory Improvement Amendments of 1988 (CLIA-88) as qualified to perform high complexity clinical laboratory testing. Bobby Parra MD LAB MICROBIOLOGY - GENERAL O RDERABLES Final Result Performing Organization Address City/[facility]/[place] [address] * Sahara auris Surveillance by PCR (02/22/2025 10:02 PM EDT) Sahara auris PCR Result Not Detected Not Detected 02/24/2025 7:03 AM EDT [facility] Swab (Axilla and Groin) Non-blood Collection / Unknown 02/22/2025 10:02 PM EDT 02/22/2025 10:16 PM EDT Narrative [facility] - 02/24/2025 7:03 AM EDT This PCR assay was developed and its performance characteristics determined by [facility] as appropriate for clinical purposes. This assay has not been cleared or approved by the FDA, but is performed in a CLIA regulated laboratory that is qualified to perform high-complexity testing. Bobby Parra MD LAB MICROBIOLOGY - GENERAL O RDERABLES Final Result Performing Organization Address City/[facility] Co de Phone Number [facility] [address] [place] [address] * (ABNORMAL) Fentanyl Urine Confirm (02/22/2025 10:01 PM EDT) Fentanyl 1(H) <1 ng/mL 02/24/2025 9:18 AM EDT [facility] Norfentanyl 2(H) <2 ng/mL 02/24/2025 9:18 AM EDT [facility] Urine Urine specimen obtained by clean catch procedure / Unknown Non-blood Collection / Unknown 02/22/2025 10:01 PM EDT 02/22/2025 10:11 PM EDT Narrative [facility] - 02/24/2025 9:18 AM EDT Drug analysis is confirmed by LC-MS/MS (LC Tandem Mass Spectrometry) on Urine specimens. This test was developed and its performance characteristics determined by [facility]. It has not been cleared or approved by the FDA. The laboratory is regulated under CLIA as qualified to perform high-complexity testing. This test is used for clinical purposes. Testing is performed at the [facility], Special Chemistry Laboratory. us Luda Morton MD LAB URINE ORDERABLES Final Result Performing Organization Address City/[facility]/ZIP Co de Phone Number [facility] [address] [place] [address] * SEND HECTOR MESSAGE (02/22/2025 10:01 PM EDT) Urine Urine specimen obtained by clean catch procedure / Unknown Non-blood Collection / Unknown 02/22/2025 10:01 PM EDT 02/22/2025 10:14 PM EDT Bobby Parra MD LAB URINE ORDERABLES Final R esult Performing Organization Address [facility] Co de Phone Number [facility] [address] [place] [address] * (ABNORMAL) Urine Culture (02/22/2025 10:01 PM EDT) Culture 100 CFU/mL Normal Urogenital Jesus(A) 02/24/2025 6:58 AM EDT [facility] Urine Urine specimen obtained by clean catch procedure / Unknown Non-blood Collection / Unknown 02/22/2025 10:01 PM EDT 02/22/2025 10:14 PM EDT Bobby Parra MD LAB MICROBIOLOGY - GENERAL O RDERABLES Final Result Performing Organization Address City/[facility] Co de Phone Number [facility] [address] [place] [address] * Urinalysis Microscopic Examination (02/22/2025 10:01 PM EDT) Urine Urine specimen obtained by clean catch procedure / Unknown Non-blood Collection / Unknown 02/22/2025 10:01 PM EDT 02/22/2025 10:11 PM EDT Bobby Parra MD LAB URINE ORDERABLES Final R esult [facility] [address] [place] [address] * Urine Salmon Panel (02/22/2025 10:01 PM EDT) Extra Sent for Culture 02/23/2025 12:01 AM EDT [facility] Urine Urine specimen obtained by clean catch procedure / Unknown Non-blood Collection / Unknown 02/22/2025 10:01 PM EDT 02/22/2025 10:14 PM EDT us Bobby Parra MD LAB URINE ORDERABLES Final R esult [facility] [address] [place] [address] * (ABNORMAL) Urinalysis with reflex microscopic (Culture NOT Included) (02/22/2025 10:01 PM EDT) Color, Urine Red LAB URINALYSIS - AUTOMATED METHOD 02/22/2025 11:13 PM EDT [facility] Clarity, Urine Cloudy LAB URINALYSIS - AUTOMATED METHOD 02/22/2025 11:13 PM EDT [facility] Spec Rye, Urine 1.010 1.005 - 1.030 LAB URINALYSIS - AUTOMATED METHOD 02/22/2025 11:13 PM EDT [facility] pH, Urine 6.5 5.0 - 8.0 LAB URINALYSIS - AUTOMATED METHOD 02/22/2025 11:13 PM EDT [facility] Protein, Urine >=300(A) Negative mg/dL LAB URINALYSIS - AUTOMATED METHOD 02/22/2025 11:13 PM EDT [facility] Glucose, Urine Negative Negative mg/dL LAB URINALYSIS - AUTOMATED METHOD 02/22/2025 11:13 PM EDT [facility] Ketones, Urine Negative Negative mg/dL LAB URINALYSIS - AUTOMATED METHOD 02/22/2025 11:13 PM EDT [facility] Blood, Urine Large(A) Negative LAB URINALYSIS - AUTOMATED METHOD 02/22/2025 11:13 PM EDT [facility] Bilirubin, Urine Small(A) Negative LAB URINALYSIS - AUTOMATED METHOD 02/22/2025 11:13 PM EDT [facility] Urobilinogen, Urine 0.2 0.2 to 1.0 mg/dL LAB URINALYSIS - AUTOMATED METHOD 02/22/2025 11:13 PM EDT [facility] Leukocytes, Urine Large(A) Negative LAB URINALYSIS - AUTOMATED METHOD 02/22/2025 11:13 PM EDT [facility] Nitrite, Urine Negative Negative LAB URINALYSIS - AUTOMATED METHOD 02/22/2025 11:13 PM EDT [facility] RBC, Urine >50(A) 0 to 3 /HPF LAB URINALYSIS - AUTOMATED METHOD 02/22/2025 11:13 PM EDT [facility] WBC, Urine >50(A) 0 to 5 /HPF LAB URINALYSIS - AUTOMATED METHOD 02/22/2025 11:13 PM EDT [facility] Squamous Epithelial Cells 0 - 2 0 to 5 /HPF LAB URINALYSIS - AUTOMATED METHOD 02/22/2025 11:13 PM EDT [facility] Hyaline Casts 0 - 2 0 to 5 /LPF LAB URINALYSIS - AUTOMATED METHOD 02/22/2025 11:13 PM EDT [facility] Bacteria, Urine Negative Negative LAB URINALYSIS - AUTOMATED METHOD 02/22/2025 11:13 PM EDT [facility] Urine Urine specimen obtained by clean catch procedure / Unknown Non-blood Collection / Unknown 02/22/2025 10:01 PM EDT 02/22/2025 10:11 PM EDT Narrative [facility] - 02/22/2025 11:13 PM EDT Urinalysis dipstick results may be inaccurate due to specimen color or an interfering substance in the specimen. Bobby Parra MD LAB URINE ORDERABLES Final R esult [facility] [address] [place] [address] * Drug abuse screen (02/22/2025 10:01 PM EDT) Amphetamine Screen Urine Negative Cutoff: 500 ng/mL 02/23/2025 12:22 AM EDT [facility] Benzodiazepines Screen Urine Negative Cutoff: 200 ng/mL 02/23/2025 12:22 AM EDT [facility] Cannabinoid Screen Urine Negative Cutoff: 50 ng/mL 02/23/2025 12:22 AM EDT [facility] Cocaine Screen Urine Negative Cutoff: 300 ng/mL 02/23/2025 12:22 AM EDT [facility] Barbiturate Screen Urine Negative Cutoff: 200 ng/mL 02/23/2025 12:22 AM EDT [facility] Opiate Screen Urine Negative Cutoff: 300 ng/mL 02/23/2025 12:22 AM EDT [facility] Methadone Screen Urine Negative Cutoff: 300 ng/mL 02/23/2025 12:22 AM EDT [facility] Buprenorphine Screen Urine Negative Cutoff: 10 ng/mL 02/23/2025 12:22 AM EDT [facility] Fentanyl Screen Urine Presumptive positive. Confirmation by LC-MS/MS to follow. Cutoff: 1 ng/mL 02/23/2025 12:22 AM EDT [facility] Oxycodone Screen Urine Negative Cutoff: 100 ng/mL 02/23/2025 12:22 AM EDT [facility] Urine Urine specimen obtained by clean catch procedure / Unknown Non-blood Collection / Unknown 02/22/2025 10:01 PM EDT 02/22/2025 10:11 PM EDT Luda Morton MD LAB URINE ORDERABLES Final Result [facility] [address] [place] [address] * (ABNORMAL) POCT glucose meter (02/22/2025 9:38 PM EDT) [facility] POCT Glucose 156(H) 74 - 99 [...] 02/22/2025 9:40 PM EDT [facility] Torpedoman'S Mate ID Shiloh Friedman 02/23/20 9:40 PM EDT [facility] Device ID [id number] 02/22/2025 9:40 PM EDT [facility] Specimen Type POC Capillary 02/22/2025 9:40 PM EDT [facility] Blood Capillary blood specimen / Unknown 02/22/2025 9:38 PM EDT 02/22/2025 9:40 PM EDT us Luda Ralph MD LAB POINT OF CARE TE ST DOCKED DEVICE UNSOLICITED RESULTS Final Result [facility] [address] [place] [address] * (ABNORMAL) POCT arterial blood gas gem (02/22/2025 9:05 PM EDT) pH, Arterial 7.45(H) 7.31 - 7.42 02/22/2025 9:06 PM EDT [facility] pCO2, Arterial 37 35 - 48 mm Hg 02/22/2025 9:06 PM EDT [facility] pO2, Arterial 86 >80 mm Hg 02/22/2025 9:06 PM EDT [facility] SO2, Arterial 98 94 - 98 % 02/22/2025 9:06 PM EDT [facility] FIO2 60.0 % 02/22/2025 9:06 PM EDT [facility] Base Excess, Arterial 1.7 -2 - 3 mmol/L 02/22/2025 9:06 PM EDT [facility] HCO3, Arterial 25.7 22 - 26 mmol/L 02/22/2025 9:06 PM EDT [facility] Total Hemoglobin, Arterial, Whole Blood 9.1(L) 11.2 - 15.7 g/dL 02/22/2025 9:06 PM EDT [facility] Hematocrit, Arterial 27.0(L) 34.0 - 45.0 % 02/22/2025 9:06 PM EDT [facility] Sodium, Arterial 125(L) 136 - 145 mmol/L 02/22/2025 9:06 PM EDT [facility] Potassium, Arterial 4.9 3.6 - 4.9 mmol/L 02/22/2025 9:06 PM EDT [facility] Comment:Hemolyzed, result ma y be falsely increased. Chloride, Whole Blood 95(L) 97 - 107 mmol/L 02/22/2025 9:06 PM EDT [facility] Glucose, Arterial 116(H) 74 - 99 mg/dL 02/22/2025 9:06 PM EDT [facility] Ionized Calcium, Arterial 4.8 4.6 - 5.1 mg/dL 02/22/2025 9:06 PM EDT [facility] Lactate, Arterial 0.8 0.5 - 1.6 mmol/L 02/22/2025 9:06 PM EDT [facility] Body Temperature 37.0 Celsius 02/22/2025 9:06 PM EDT [facility] pH, Temp Corrected, Arterial 7.45(H) 7.31 - 7.42 02/22/2025 9:06 PM EDT [facility] pCO2, Temp Corrected, Arterial 37 35 - 48 mm Hg 02/22/2025 9:06 PM EDT [facility] pO2, Temp Corrected, Arterial 86 >80 mm Hg 02/22/2025 9:06 PM EDT [facility] [employer] ID Slim Morton 02/22/2025 9:06 PM EDT [facility] Blood, Arterial Whole blood specimen / Unknown 02/22/2025 9:05 PM EDT 02/22/2025 9:06 PM EDT Luda Ralph MD LAB POINT OF CARE TE ST DOCKED DEVICE UNSOLICITED RESULTS Final Result Performing Organization Address City/[facility]/ZIP Co de Phone Number [facility] [address] [place] [address] * Blood Culture (Aerobic/Anaerobet Set) (02/22/2025 8:55 PM EDT) [facility] Culture No growth at day 5 02/27/2025 10:01 PM EDT [facility] Blood Structure of right hand / Unknown Venipuncture / Unknown 02/22/2025 8:55 PM EDT 02/22/2025 9:29 PM EDT Narrative [facility] - 02/27/2025 10:01 PM EDT Low blood volume submitted, results may be compromised Luda Morton MD LAB MICROBIOLOGY - GENERAL ORDERABLES Final Result [facility] [address] [place] [address] * Ionized calcium, serum (02/22/2025 8:36 PM EDT) Pathologist [facility] Ionized Calcium, Serum 4.8 4.6 - 5.3 mg/dL LAB HEMATOLOGY METHOD 02/22/2025 9:42 PM EDT [facility] Blood Venous blood specimen / Unknown Venipuncture / Unknown 02/22/2025 8:36 PM EDT 02/22/2025 8:53 PM EDT us Bobby Parra MD LAB BLOOD ORDERABLES Final R esult [facility] [address] [place] [address] * (ABNORMAL) CBC W/O Differential (02/22/2025 8:36 PM EDT) Pathologist [facility] WBC Count 7.98 3.70 - 10.30 10*3/uL LAB HEMATOLOGY METHOD 02/22/2025 8:44 PM EDT [facility] RBC Count 3.52(L) 3.90 - 5.20 10*6/uL LAB HEMATOLOGY METHOD 02/22/2025 8:44 PM EDT [facility] HGB 9.2(L) 11.2 - 15.7 g/dL LAB HEMATOLOGY METHOD 02/22/2025 8:44 PM EDT [facility] HCT 28.5(L) 34.0 - 45.0 % LAB HEMATOLOGY METHOD 02/22/2025 8:44 PM EDT [facility] Platelet Count 329 155 - 369 10*3/uL LAB HEMATOLOGY METHOD 02/22/2025 8:44 PM EDT [facility] MCV 81 79 - 98 fL LAB HEMATOLOGY METHOD 02/22/2025 8:44 PM EDT [facility] MCH 26.1 26.0 - 32.0 pg LAB HEMATOLOGY METHOD 02/22/2025 8:44 PM EDT [facility] MCHC 32.3 30.7 - 35.5 g/dL LAB HEMATOLOGY METHOD 02/22/2025 8:44 PM EDT [facility] RDW 14.6(H) 11.5 - 14.5 % LAB HEMATOLOGY METHOD 02/22/2025 8:44 PM EDT [facility] MPV 9.5 8.8 - 12.5 fL LAB HEMATOLOGY METHOD 02/22/2025 8:44 PM EDT [facility] nRBC 0.0 <=0.0 per 100 WBCs LAB HEMATOLOGY METHOD 02/22/2025 8:44 PM EDT [facility] Blood Venous blood specimen / Unknown Venipuncture / Unknown 02/22/2025 8:36 PM EDT 02/22/2025 8:40 PM EDT us Bobby Parra MD LAB BLOOD ORDERABLES Final R esult [facility] [address] [place] [address] * (ABNORMAL) Blood gas, venous (02/22/2025 8:13 PM EDT) pH, Venous 7.33 7.32 - 7.43 LAB HEMATOLOGY METHOD 02/22/2025 8:17 PM EDT [facility] pCO2, Venous 49 37 - 52 mmHg LAB HEMATOLOGY METHOD 02/22/2025 8:17 PM EDT [facility] pO2, Venous 27 25 - 40 mmHg LAB HEMATOLOGY METHOD 02/22/2025 8:17 PM EDT [facility] SO2, Measured, Venous 49(L) 65 - 80 % LAB HEMATOLOGY METHOD 02/22/2025 8:17 PM EDT [facility] Base Excess, Venous -0.1 -2.0 - 3.0 mmol/L LAB HEMATOLOGY METHOD 02/22/2025 8:17 PM EDT [facility] Bicarbonate, Calculated, Venous 26 22 - 26 mmol/L LAB HEMATOLOGY METHOD 02/22/2025 8:17 PM EDT [facility] Hematocrit, Whole Blood 27.0(L) 34.0 - 45.0 % LAB HEMATOLOGY METHOD 02/22/2025 8:17 PM EDT [facility] Sodium, Whole Blood 128(L) 136 - 145 mmol/L LAB HEMATOLOGY METHOD 02/22/2025 8:17 PM EDT [facility] Potassium, Whole Blood 5.3(H) 3.6 - 4.9 mmol/L LAB HEMATOLOGY METHOD 02/22/2025 8:17 PM EDT [facility] Chloride, Whole Blood 96(L) 97 - 107 mmol/L LAB HEMATOLOGY METHOD 02/22/2025 8:17 PM EDT [facility] Glucose, Whole Blood 106(H) 74 - 99 mg/dL LAB HEMATOLOGY METHOD 02/22/2025 8:17 PM EDT [facility] Lactate, Venous, Whole Blood 1.0 0.5 - 2.2 mmol/L LAB HEMATOLOGY METHOD 02/22/2025 8:17 PM EDT [facility] Ionized Calcium, Whole Blood 4.3(L) 4.6 - 5.1 mg/dL LAB HEMATOLOGY METHOD 02/22/2025 8:17 PM EDT [facility] Blood Venous blood specimen / Unknown Venipuncture / Unknown 02/22/2025 8:13 PM EDT 02/22/2025 8:16 PM EDT us Luda Morton MD LAB BLOOD ORDERABLES Final Result Performing Organization Address City/[facility]/ZIP Co de Phone Number [facility] [address] [place] [address] * EKG now - STAT (adult) (02/22/2025 8:10 PM EDT) EKG DIAGNOSIS CLASS Abnormal MUSE ECG Ventricular Rate 74 BPM MUSE ECG Atrial Rate 74 BPM MUSE ECG MA Interval 200 ms MUSE ECG QRSD Interval 136 ms MUSE ECG QT Interval 434 ms MUSE ECG QTC Interval 481 ms MUSE ECG P [place] 59 degrees MUSE ECG R [place] -84 degrees MUSE ECG T Wave [place] 48 degrees MUSE ECG Diagnosis Normal sinus [...] 9.2(H) <5.7 % 02/23/2025 1:40 PM EDT [facility] Blood Venous blood specimen / Unknown Venipuncture / Unknown 02/22/2025 6:41 PM EDT 02/22/2025 6:47 PM EDT Narrative [facility] - 02/23/2025 1:40 PM EDT HA1C Interpretive Data: Diagnosis of Diabetes: Diabetic > or = 6.5% Pre-diabetic 5.7 to 6.4% Non-diabetic < or = 5.6% Glycemic Targets for Type I and Type II Diabetics: Non- Adults <7.0% Adults <6.0% Children and Adolescents <7.5% Source: [place] [employer]. Standards of medical care in diabetes,2017. Diabetes Care.2017:40 (suppl 1):S1-S135. Bobby Parra MD LAB BLOOD ORDERABLES Final R esult [facility] [address] [place] [address] * (ABNORMAL) BNP (02/22/2025 6:41 PM EDT) N-Terminal, PROBNP, Plasma 1,679(H) 0 - 899 pg/mL 02/22/2025 8:39 PM EDT [facility] Blood Venous blood specimen / Unknown Venipuncture / Unknown 02/22/2025 6:41 PM EDT 02/22/2025 6:47 PM EDT Luda Morton MD LAB BLOOD ORDERAB[place] [address] * Free T4, Plasma (02/22/2025 6:41 PM EDT) Free T4, Plasma 1.3 0.8 - 1.7 ng/dL 02/22/2025 7:24 PM EDT [facility] Blood Venous blood specimen / Unknown Venipuncture / Unknown 02/22/2025 6:41 PM EDT 02/22/2025 6:47 PM EDT Luda Morton MD LAB BLOOD ORDERABLES Final Result Performing Organization Address City/[facility]/[place] [address] * Thyroid Stimulating Hormone, Plasma (02/22/2025 6:41 PM EDT) Thyroid Stimulating Hormone, Plasma 1.03 0.40 - 4.20 uIU/mL 02/22/2025 7:24 PM EDT [facility] Blood Venous blood specimen / Unknown Venipuncture / Unknown 02/22/2025 6:41 PM EDT 02/22/2025 6:47 PM EDT Luda Morton MD LAB BLOOD ORDERABLES Final Result Performing Organization Address City/[facility]/[place] [address] * Ethyl Alcohol Plasma (02/22/2025 6:41 PM EDT) Ethanol Plasma <10 <10 mg/dL 02/22/2025 8:13 PM EDT [facility] Blood Venous blood specimen / Unknown Venipuncture / Unknown 02/22/2025 6:41 PM EDT 02/22/2025 8:00 PM EDT Narrative [facility] - 02/22/2025 8:13 PM EDT Enzymatic Assay: Performed on [employer]uf[employer]. us Luda Morton MD LAB BLOOD ORDERABLES Final Result [facility] [address] [place] [address] * (ABNORMAL) CBC w/diff (02/22/2025 6:41 PM EDT) WBC Count 9.69 3.70 - 10.30 10*3/uL LAB HEMATOLOGY METHOD 02/22/2025 6:54 PM EDT [facility] RBC Count 3.62(L) 3.90 - 5.20 10*6/uL LAB HEMATOLOGY METHOD 02/22/2025 6:54 PM EDT [facility] HGB 9.7(L) 11.2 - 15.7 g/dL LAB HEMATOLOGY METHOD 02/22/2025 6:54 PM EDT [facility] HCT 29.8(L) 34.0 - 45.0 % LAB HEMATOLOGY METHOD 02/22/2025 6:54 PM EDT [facility] Platelet Count 306 155 - 369 10*3/uL LAB HEMATOLOGY METHOD 02/22/2025 6:54 PM EDT [facility] MCV 82 79 - 98 fL LAB HEMATOLOGY METHOD 02/22/2025 6:54 PM EDT [facility] MCH 26.8 26.0 - 32.0 pg LAB HEMATOLOGY METHOD 02/22/2025 6:54 PM EDT [facility] MCHC 32.6 30.7 - 35.5 g/dL LAB HEMATOLOGY METHOD 02/22/2025 6:54 PM EDT [facility] RDW 14.6(H) 11.5 - 14.5 % LAB HEMATOLOGY METHOD 02/22/2025 6:54 PM EDT [facility] MPV 9.4 8.8 - 12.5 fL LAB HEMATOLOGY METHOD 02/22/2025 6:54 PM EDT [facility] nRBC 0.0 <=0.0 per 100 WBCs LAB HEMATOLOGY METHOD 02/22/2025 6:54 PM EDT [facility] Differential Type Automated LAB HEMATOLOGY METHOD 02/22/2025 6:54 PM EDT [facility] Neutrophils % 69 % LAB HEMATOLOGY METHOD 02/22/2025 6:54 PM EDT [facility] Lymphocytes % 13 % LAB HEMATOLOGY METHOD 02/22/2025 6:54 PM EDT [facility] Monocytes % 13 % LAB HEMATOLOGY METHOD 02/22/2025 6:54 PM EDT [facility] Eosinophils % 4 % LAB HEMATOLOGY METHOD 02/22/2025 6:54 PM EDT [facility] Basophils % 0 % LAB HEMATOLOGY METHOD 02/22/2025 6:54 PM EDT [facility] Immature Granulocytes % 1 % LAB HEMATOLOGY METHOD 02/22/2025 6:54 PM EDT [facility] Neutrophils Absolute 6.66(H) 1.60 - 6.10 10*3/uL LAB HEMATOLOGY METHOD 02/22/2025 6:54 PM EDT [facility] Lymphocytes Absolute 1.29 1.20 - 3.90 10*3/uL LAB HEMATOLOGY METHOD 02/22/2025 6:54 PM EDT [facility] Monocytes Absolute 1.27(H) 0.30 - 0.90 10*3/uL LAB HEMATOLOGY METHOD 02/22/2025 6:54 PM EDT [facility] Eosinophils Absolute 0.38 0.00 - 0.50 10*3/uL LAB HEMATOLOGY METHOD 02/22/2025 6:54 PM EDT [facility] Basophils Absolute 0.03 0.00 - 0.10 10*3/uL LAB HEMATOLOGY METHOD 02/22/2025 6:54 PM EDT [facility] Immature Granulocytes Absolute 0.06 0.00 - 0.06 10*3/uL LAB HEMATOLOGY METHOD 02/22/2025 6:54 PM EDT [facility] Blood Venous blood specimen / Unknown Venipuncture / Unknown 02/22/2025 6:41 PM EDT 02/22/2025 6:47 PM EDT [facility] - 02/22/2025 6:54 PM EDT Therapeutic decision making should be based on absolute values, rather than percentages. us Luda Morton MD LAB BLOOD ORDERABLES Final Result [facility] [address] [place] [address] * (ABNORMAL) CMP (02/22/2025 6:41 PM EDT) Glucose, Plasma 144(H) 74 - 99 mg/dL 02/22/2025 7:24 PM EDT [facility] BUN, Plasma 42(H) 8 - 23 mg/dL 02/22/2025 7:24 PM EDT [facility] Creatinine, Plasma 2.39(H) 0.60 - 1.10 mg/dL 02/22/2025 7:24 PM EDT [facility] BUN/Creatinine Ratio 18 02/22/2025 7:24 PM EDT [facility] Sodium, Plasma 125(L) 136 - 145 mmol/L 02/22/2025 7:24 PM EDT [facility] Potassium, Plasma 4.6 3.6 - 4.9 mmol/L 02/22/2025 7:24 PM EDT [facility] Chloride, Plasma 89(L) 97 - 107 mmol/L 02/22/2025 7:24 PM EDT [facility] CO2, Plasma 26 22 - 29 mmol/L 02/22/2025 7:24 PM EDT [facility] Anion Gap 10 6 - 16 mmol/L 02/22/2025 7:24 PM EDT [facility] Total Calcium, Plasma 9.0 8.9 - 10.2 mg/dL 02/22/2025 7:24 PM EDT [facility] Total Protein 7.3 6.3 - 7.9 g/dL 02/22/2025 7:24 PM EDT [facility] Albumin, Plasma 3.6 3.5 - 5.2 g/dL 02/22/2025 7:24 PM EDT [facility] AST, Plasma 13 10 - 35 U/L 02/22/2025 7:24 PM EDT [facility] ALT, Plasma 19 10 - 35 U/L 02/22/2025 7:24 PM EDT [facility] Alkaline Phosphatase, Plasma 144(H) 46 - 142 U/L 02/22/2025 7:24 PM EDT [facility] Total Bilirubin, Plasma <0.2(L) 0.2 - 1.1 mg/dL 02/22/2025 7:24 PM EDT [facility] eGFRcr 22.0 mL/min/1.7 3m*2 02/22/2025 7:24 PM EDT [facility] Comment:Reported eGFRcr in m L/min/1.73m2 is based the CKD-EPI 2020 equation that does not use a race coefficient. Blood Venous blood specimen / Unknown Venipuncture / Unknown 02/22/2025 6:41 PM EDT 02/22/2025 6:47 PM EDT Luda Morton MD LAB BLOOD ORDERABLES Final Result [facility] [address] [place] [address] * (ABNORMAL) POCT venous blood gas gem (02/22/2025 6:37 PM EDT) pH, Venous 7.28(L) 7.32 - 7.43 02/22/2025 6:38 PM EDT [facility] pCO2, Venous 60(HH) 37 - 52 mm Hg 02/22/2025 6:38 PM EDT [facility] pO2, Venous 41(H) 25 - 40 mm Hg 02/22/2025 6:38 PM EDT [facility] SO2, Venous 72 65 - 80 % 02/22/2025 6:38 PM EDT [facility] Base Excess/Deficit, Venous 0.8 -2 - 3 mmol/L 02/22/2025 6:38 PM EDT [facility] HCO3, Venous 28.2(H) 22 - 26 mmol/L 02/22/2025 6:38 PM EDT [facility] Hemoglobin, Venous 9.2(L) 11.2 - 15.7 g/dL 02/22/2025 6:38 PM EDT [facility] Hematocrit, Venous 28.0(L) 34.0 - 45.0 % 02/22/2025 6:38 PM EDT [facility] Sodium, Venous 126(L) 136 - 145 mmol/L 02/22/2025 6:38 PM EDT [facility] Potassium, Venous 4.6 3.6 - 4.9 mmol/L 02/22/2025 6:38 PM EDT [facility] Comment:Hemolyzed, result ma y be falsely increased. POCT Chloride, Venous 94(L) 97 - 107 mmol/L 02/22/2025 6:38 PM EDT [facility] Glucose, Venous 139(H) 74 - 99 mg/dL 02/22/2025 6:38 PM EDT [facility] Ionized Calcium, Venous 4.9 4.6 - 5.1 mg/dL 02/22/2025 6:38 PM EDT [facility] Lactate, Venous 0.6 0.5 - 2.2 mmol/L 02/22/2025 6:38 PM EDT [facility] Body Temperature 37.0 Celsius 02/22/2025 6:38 PM EDT [facility] pH, Temp Corrected, Venous 7.28(L) 7.32 - 7.43 02/22/2025 6:38 PM EDT [facility] pCO2, Temp Corrected, Venous 60(HH) 37 - 52 mm Hg 02/22/2025 6:38 PM EDT [facility] pO2, Temp Corrected, Venous 41(H) 25 - 40 mm Hg 02/22/2025 6:38 PM EDT [facility] Torpedoman'S Mate ID Joao Jackson 02/22/2025 6:38 PM EDT [facility] Blood, Venous Whole blood specimen / Unknown 02/22/2025 6:37 PM EDT 02/22/2025 6:38 PM EDT us Generic Provider Poct LAB POINT OF CARE TEST DOCKED DEVICE UNSOLICITED RESULTS Final Result [facility] [address] [place] [address] * (ABNORMAL) POCT glucose meter (02/22/2025 6:17 [...] 02/22/2025 6:19 PM EDT [facility] Torpedoman'S Mate ID Tracy Vasques 02/22/2025 6:19 PM EDT [facility] Device ID [id number] 02/22/2025 6:19 PM EDT [facility] Specimen Type POC Capillary 02/22/2025 6:19 PM EDT [facility] Blood Capillary blood specimen / Unknown 02/22/2025 6:17 PM EDT 02/22/2025 6:19 PM EDT us Generic Provider Poct LAB POINT OF CARE TEST DOCKED DEVICE UNSOLICITED RESULTS Final Result [facility] [address] [place] [address] * INTUBATION (02/22/2025 6:13 PM EDT) Narrative [...] encounter Visit Diagnoses Diagnosis Sepsis (CMS/HCC)- Primary [place] coma scale total score 9-12, at arrival [...] documented as of this encounter Care Teams School Physical Therapist Relationship Specialty Start Date End Date Vignesh Pickens MD [address] [place] [address] PCP - General 12/31/24 Cayla Erazo APRN, [employer] [address] [facility] [address] [place] [address] Nurse Practitioner Urology 12/20/24 documented as of this encounter
--- OUTSIDE RECORDS SUMMARY | 2025-02-28 08:15 | XMS_ITS | Encounter Summary ---
Author Organization [facility] Address [address] [place] [address] Care Team Providers Care Mason Tender Name Role Phone Cayla Erazo APRN, DNP Unavailable [phone] Vignesh Pickens MD Primary Care Provider [phone] Reason for Visit * Auth/Cert (Routine) Specialty Diagnoses / Procedures Referred By Contac t Referred To Contact Diagnoses Sepsis (CMS/HCC) UTI, CKD, Hyponatremia, COPD exacerbation Bobby Parra MD [address] [place] [phone] Phone: tel: fax: [facility] A Inpatient [address] [place] [phone] Referral ID Status Reason Start Date Expiration Date Visits Re quested Visits Authorized [id number] 1 1 Encounter Details Date Type Department Care Team (Latest Contact Info) Description 02/28/2025 8:15 AM EDT Office Visit [facility] [address] [place] [phone] Bert Lim, DMD [address] [place] [phone] Caries (Primary Dx) Social History Tobacco Use Types Packs/Day Years [...] the past [address] [facility], were you homeless or living [...] first t rodríguez in the morning ([employer]YE[employer]MA[employer]GER [employer]) to steady your nerves or to get rid of a hangover? 0 08/15/2024 CAGE Questionnaire Score 0 024 Utilities Answer Date Recorded In the past 12 months has th [employer], gas, oil, or water company threatened to [...] Sign Reading Time Taken Comments Blood Pressure 107/83 02/28/2025 8:31 AM EDT Pulse 61 02/28/2025 8:07 AM EDT Temperature 36.6 C (97.8 F) 02/28/2025 8:07 AM EDT Respiratory Rate - - Oxygen Saturation 86% 02/28/2025 8:07 AM EDT Inhaled Oxygen Concentration - - Weight 85.7 kg (189 lb) 02/28/2025 8:07 AM EDT Height 162.6 cm (5' 4 ) 02/28/2025 8:07 AM EDT Body Mass Index 32.44 02/28/2025 8:07 AM EDT documented in this encounter Functional Status * Calculated C-SSRS Risk Score (Lifetime/Recent) Answer Date of Assessment Author No Risk Indicated 02/28/2025 8:00 AM EDT Gayle Oakley, RN * Question Answer Date of Assessment Author 1. Wish to be (Past 1 Month) No 02/28/2025 8:00 AM EDT Gayle Light, RN 2. Non-Specific Active Suici annie Thoughts (Past 1 Month) No 02/28/2025 8:00 AM EDT Andria Light, RN 6. Suicidal Behavior (Lifetime) No 8:00 AM EDT Gayle Light, RN documented as of this encounter Miscellaneous Notes * Progress Notes - Bert Lim DMD - 02/28/2025 8:15 AM EDT ORAL & MAXILLOFACIAL SURGERY - Operative Report Patient (ASA 4) presents to clinic for scheduled surgery - PMH and R/B/A's reviewed, informed consent updated. - A timeout was performed. - Pre-op Diagnosis: Non-restorable tooth #15 - Post-op Diagnosis: Same - Resident/Attending: Bert Lim DMD/Dr. Summers - Procedure: EXT #15 - Estimated Blood Loss: Minimal Local Anesthesia: - 1.8 mL 2% Lidocaine w/1:100,000 epi [x1] Description of Procedure EXT #15 - Local anesthesia achieved. Throat pack & bite block placed. Used periosteal to separate mucosa from tooth. Using elevators and forceps as indicated, tooth was extracted in total and confirmed. Curetted and irrigated the socket. F/U: PRN PDMP performed and reviewed and potential narcotics abuse discussed with patient prior to prescribing narcotic medication. Bert iLm DMD [facility] fan blade aligner PGY-1 Pager #: [phone] Cosigned by Froylan Summers DMD at 03/01/2025 8:09 AM EDT Associated attestation - Froylan Summers DMD - 03/01/2025 8:09 AM EDT I was present during all critical and madden portions of the procedure(s) and immediately available [facility] services the entire duration. See resident note for details. documented in this encounter Plan of Treatment Upcoming Encounters Date Type Department Care Team (Late st Contact Info) Description 04/08/2025 9:20 AM EDT Office Visit [facility] Urology [address] [place] [address] Cayla Erazo, CHANNEL CEMENTER, DNP [address] [place] [address] 05/16/2025 8:00 AM EDT Office Visit [facility] [place] [address] [facility], [address] [place] [address] Karly Gracia MD [address] [place] [address] 06/07/2025 1:00 PM EDT Office Visit [facility] [address] [place] [address] Tom Iraheta MD [address] [place] [address] documented as of this encounter Procedures Procedure Name Priority Date/Time Associated Diagnosis Comments 15 EXTRACTION, ERUPTED TOOTH OR EXPOSED ROOT (ELEVATION AND/OR FORCEPS REMOVAL) Routine 02/28/2025 8:15 AM EDT Caries documented in this encounter Visit Diagnoses Diagnosis Caries- Primary 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
--- OUTSIDE RECORDS SUMMARY | 2025-03-07 10:00 | XMS_ITS | Encounter Summary ---
Author Organization [facility] Address [address] [place] [address] Care Team Providers Care Computer Software Engineer Name Role Phone Cayla Erazo APRN, DNP Unavailable [phone] Vignesh Pickens MD Primary Care Provider [phone] Reason for Visit * Other Medical (Routine) - Closed Specialty Diagnoses / Procedures Referred By Contelvie t Referred To Contact Urology Diagnoses Gross hematuria Procedures Cysto- Urology Cayla Erazo APRN, DNP [address] [address] Phone: tel: fax: Referral ID Status Reason Start Date Expiration Date Visits Re quested Visits Authorized [id number] Closed 12/25/2024 06/26/2026 1 1 Encounter Details Date Type Department Care Team (Late st Contact Info) Description 03/07/2025 10:00 AM EDT [facility] [address] [place] [address] Doug Chapman MD [id number] [place] [address] Gross hematuria Social History Tobacco [...] any time in the past 12 m [facility], were you homeless or living [...] drink first t rodríguez in the morning (EYE-CARRIER PACKER) to steady your nerves or to get rid of a hangover? 0 08/15/2024 CAGE Questionnaire Score 0 024 Utilities Answer Date Recorded In the past 12 months has th e [employer], gas, oil, or water [employer] threatened to shut off services in your [...] Maxwell MD - 03/07/2025 10:00 AM EDT [facility] Urology Clinic Note CC: hematuria HPI: [...] was removed prior to discharge to [facility] in [place]. She is a limited historian, presented in a wheelchair, and is accompanied by a staff member from [facility] without further information provided. She presents [...] Vitals: 03/07/25 1009 BP: 108/63 Pulse: 79 Dumper Bailer Operator present during entire exam General: Pleasant, alert, [...] Essential (primary) hypertension CAD (coronary artery disease), [place] coronary artery Controlled diabetes mellitus type II without complication Iron deficiency anemia Second hand smoke exposure Acute kidney injury superimposed on CKD ([facility]/HCC) Arthritis Cellulitis of left knee Chronic respiratory failure COPD (chronic obstructive pulmonary disease) ([facility]) Dehydration with hyponatremia Diabetes mellitus ([facility]) Hyperlipidemia Restrictive lung disease Stroke ([facility]) Dave coma scale total score 13-15, unspecified coma timing Pyelonephritis Kidney infection Acquired absence of leg above knee Stage 3 chronic kidney disease ([facility]) Type 2 diabetes mellitus with diabetic chronic kidney disease ([facility]) Peripheral vascular disease, unspecified ([facility]) Prosthetic joint infection ([facility]) Unspecified hydronephrosis Vitamin D deficiency, unspecified Disorder of kidney and ureter, unspecified Unspecified right bundle-branch block Unspecified abdominal pain Tubulo-interstitial nephritis, not specified as acute or chronic Tinea unguium Secondary hyperparathyroidism of renal origin ([facility]) Pain in right toe(s) Pain in left toe(s) Edema, unspecified Presence of left artificial knee joint Other specified disorders of the skin and subcutaneous tissue Other nonspecific abnormal finding of lung field Weakness Other disorders of phosphorus metabolism Other acute postprocedural pain Old myocardial infarction Nontoxic single thyroid nodule Morbid (severe) obesity due to excess calories ([facility]) Mixed simple and mucopurulent chronic bronchitis ([facility]) Methicillin resistant Staphylococcus aureus infection Hypertensive heart and chronic kidney disease with heart failure and stage 1 through stage 4 chronic kidney disease, or unspecified chronic kidney disease ([facility]) Hyperkalemia Hydronephrosis with renal and ureteral calculous obstruction Hemiplegia and hemiparesis following cerebral infarction affecting left non- dominant side ([facility]) Fecal impaction ([facility]) Dysuria Dyspnea, unspecified Deep venous thrombosis of lower extremity Constipation, unspecified Chronic diastolic (congestive) heart failure ([facility]/HCC) Calculus of kidney Atrial premature depolarization Adult [...] occlusion or stenosis of left carotid arteries ([facility]) Anemia in chronic kidney disease Chronic kidney [...] BREAST SURGERY N/A Breast Surgery Reconstruction from [employer] BREAST SURGERY N/A Breast Surgery from [facility] CHOLECYSTECTOMY N/A Cholecystotomy from [employer] KIDNEY SURGERY N/A Kidney Surgery from [employer] KNEE SURGERY N/A Knee Surgery from [employer] MASTECTOMY N/A Breast Surgery Mastectomy from [employer] SHOULDER SURGERY Right Shoulder Surgery Right from [employer] [4] Family History Problem Relation Name Age [...] Description 04/08/2025 9:20 AM EDT [facility] [address] [place] [address] Cayla Erazo APRN, DNP [address] [address] 05/16/2025 8:00 AM EDT Office Visit [facility] [facility] [address] [facility], [address] [place] [address] Karly Gracia MD [address] [place] [address] 06/07/2025 1:00 PM EDT Office Visit [facility] [address] [facility] [address] [place] [address] Tom Iraheta MD [address] [place] [address] documented as of this [...] as of this encounter Care Teams Computer Software Engineer Relationship Specialty Start Date End Date Vignesh Pickens MD [address] [place] [address] PCP - General 12/31/24 Cayla Erazo APRN, DNP [address] [address] Nurse Practitioner Urology 12/20/24 documented as of this encounter
--- OUTSIDE RECORDS SUMMARY | 2025-04-03 11:07 | XMS_ITS | Clinical Summary ---
Author Organization [facility] Address [address] [place] [address] Phone Care Team Providers Care Protection Mgr Name Role Phone Arie Dougherty MD [phone] [ ] Conditions or Problems Problem [...] mellitus with diabetic peripheral angiopathy without gangrene supervisor 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s (current) use of suppressive antibiotics/D oxycycline Z79.2 (ICD-10-CM ) 01/14 Active 01/14 Helen Salazar FPC (current) use of antibiotics Benign Essential Hypertension 06959286 (SNOMED CT) 01/14 Resolved 01/14 Helen Salazar Benign hypertension 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) 43460685 (SNOMED CT) 10/25 Active 10/25 Helen Salazar Benign hypertension Presence of left artificial knee joint Z96.652 (ICD-10-CM ) 10/25 Active 10/25 Helen Salazar Presence of left artificial knee joint Hx of MRSA infection 507709584 (SNOMED CT) 10/25 Active 10/25 Helen Salazar H/O: infectious disease Hx of malignant neoplasm of breast 225835718 (SNOMED CT) 03/02 Resolved 03/02 Helen Salazar History of malignant neoplasm of breast Cellulitis of left leg 952616027 (SNOMED CT) 03/02 Resolved 03/02 Helen Salazar Cellulitis of lower limb supervisor 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s (current) use of suppressive antibiotics Z79.2 (ICD-10-CM ) 01/14 Inactive 01/14 Helen Salazar FPC (current) use of antibiotics Anemia in chronic diseases(docu ment disease) D63.8 (ICD-10-CM ) 01/14 Active 01/14 Helen Salazar Anemia in other chronic diseases classified elsewhere Chronic respiratory failure with hypoxia 46636796 (SNOMED CT) 01/14 Active 01/14 Helne Salazar Acute respiratory failure COPD 63113305 (SNOMED CT) 01/14 Active 01/14 Helen Salazar Chronic obstructive pulmonary disease DM Type II E11.9 (ICD-10-CM ) 01/14 Inactive 01/14 Helen Saalzar Type 2 diabetes mellitus without complications Benign Essential Hypertension 56196317 (SNOMED CT) 01/14 Removed 01/14 Helen Salazar Benign hypertension Acquired absence of left knee joint 861091273 (SNOMED CT) 03/02 Resolved 03/02 Helen Salazar History of operative procedure on knee Obesity due to excess calories E66.09 (ICD-10-CM ) 03/02 Resolved 03/02 Helen Salazar Other obesity due to excess calories FPC (current) use of anticoagulant s Z79.01 (ICD-10-CM ) 03/02 Resolved 03/02 Helen Salazar supervisor 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s (current) use of anticoagulants Staph epi infection B95.7 (ICD-10-CM ) 03/02 Resolved 03/02 Helen Salazar Other staphylococcus as the cause of diseases classified elsewhere Diarrhea 38535313 (SNOMED CT) 09/28 Resolved 09/28 Helen Salazar Diarrhea Staph hominis infection B95.7 (ICD-10-CM ) 09/28 Resolved 09/28 Helen Salazar Other staphylococcus as the cause of diseases classified elsewhere Staph hominis infection B95.7 (ICD-10-CM ) 09/28 Removed 09/28 Arie Dougherty MD Other staphylococcus as the cause of diseases classified elsewhere Diarrhea 06384642 (SNOMED CT) 09/28 Removed 09/28 Arie Dougherty MD Diarrhea Acquired absence of left knee joint 141346207 (SNOMED CT) 03/02 Removed 03/02 Helen Salazar History of operative procedure on knee Cellulitis of left leg 792963800 (SNOMED CT) 03/02 Removed 03/02 Helen Salazar Cellulitis of lower limb Knee, left, subsequent encounter, infection/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 T84.54xD (ICD-10-CM ) 03/02 Active 03/02 Helen Salazar Infection and inflammatory reaction due to internal left knee prosthesis, subsequent encounter Staph epi infection B95.7 (ICD-10-CM ) 03/02 Removed 03/02 Helen Salazar Other staphylococcus as the cause of diseases classified elsewhere FPC (current) use of anticoagulant s Z79.01 (ICD-10-CM ) 03/02 Removed 03/02 Helen Salzaar FPC (current) use of anticoagulants Obesity due to excess calories E66.09 (ICD-10-CM ) 03/02 Removed 03/02 Helen Salazar Other obesity due to excess calories Hx of malignant neoplasm of breast 015944680 (SNOMED CT) 03/02 Removed 03/02 Helen Salazar History of malignant neoplasm of breast Medications Medication Instructions Start Date Stop Date Generic Name NDC Provider DOXYCYCLINE MONOHYDRATE 100 MG CAPS Take 1 capsule by mouth twice a day 10/25 doxycycline monohydrate 93649052892 Arie Dougherty MD ceftriaxone recon soln 2GM IV Q24hrs [facility] 02/18 ceftriaxone recon soln Temi Norris Cubicin RF 800mg IV Q48hrs [facility] 02/18 daptomycin Temi Norris DOXYCYCLINE MONOHYDRATE 100 MG CAPS Take 1 capsule by mouth twice a day 02/03 doxycycline monohydrate 18406297899 Arie Dominguez RF 800mg IV Q48hrs [facility] 02/18 daptomycin Nubia Ervin ceftriaxone recon soln 2GM IV Q24hrs [facility] 02/18 ceftriaxone recon soln Nubiadeidre Ervin IPRATROPIUM-ALBUT MIKE 0.5-2.5 (3) MG/3ML SOLN 3 ml by mouth PRN 01/27 ipratropium-albut mike 28374689328 Nubia Minor Gaviscon 95-358 mg/15 mL suspension by mouth four times a day 30 mL aluminum hydrox-magnesium carb 72348188224 Nubia Minor IPRATROPIUM-ALBUT MIKE 0.5-2.5 (3) MG/3ML SOLN using nebulizer every six hours PRN ipratropium-albut mike 90822781711 Nubia Minor BASAGLAR KWIKPEN 100 UNIT/ML SOPN subcutaneously once a day insulin glargine 07557982915 Nubia Minor MUCUS RELIEF D 60-600 MG AU13M-MMG by mouth twice a day pseudoephedrine-g uaifenesin 99295806754 Nubia Minor VITAMIN B-12 100 MCG TABS by mouth once a day cyanocobalamin (vitamin b-12) 12001494322 Nubia Minor PERCOCET 5-325 MG TABS 1-2 tablet every four to six hours oxycodone-acetami nophen 76516813654 Nubia Minor BIOTIN 1000 MCG TABS by mouth once a day biotin 72241904564 Nubia Minor GABAPENTIN 800 MG TABS by mouth four times a day as needed gabapentin 42296811837 Nubia Minor ATORVASTATIN CALCIUM 40 MG TABS by mouth every morning Hold while on daptomycin atorvastatin 95589804540 Nubia Minor FERROUS SULFATE 325 (65 Fe) MG TABS by mouth once a day ferrous sulfate 36132287868 Nubia Minor VENLAFAXINE HCL 75 MG TABS by mouth twice a day venlafaxine 45051941838 Nubia Minor CITRACAL MAXIMUM 315-6.25 MG-MCG TABS by mouth twice a day calcium citrate-vitamin d3 39331819682 Nubia Poncho JANUMET XR 50-1000 MG OV14K-SYM by mouth twice a day sitagliptin phos-metformin 23233954171 Nubia Minor GNP HYDROCORTISONE/AL OE 1 % CREA Apply to skin twice a day as needed hydrocortisone acetate 37516386703 Nubia Minor MS CONTIN 15 MG CR-TABS by mouth twice a day morphine 72551576940 Nubia Minor OMEPRAZOLE 20 MG TBEC 2 tablet by mouth once a day omeprazole 21286201142 Nubia Minor DOXYCYCLINE HYCLATE 100 MG TABS Take 1 tablet by mouth twice a day 01/11 doxycycline hyclate 77654495846 Nubia Minor CARVEDILOL 12.5 MG TABS by mouth twice a day carvedilol 48959049607 Nubia Minor PROMETHAZINE HCL 25 MG TABS by mouth three times a day as needed promethazine 52024751879 Nubia Minor TIZANIDINE HCL 4 MG TABS by mouth three times a day as needed tizanidine 45191425801 Nubia Minor LACTULOSE 10 GM/15ML SOLN 30 ml by mouth as needed lactulose 63266035182 Nubia Minor COLACE 100 MG CAPS by mouth twice a day as needed docusate sodium 43633166816 Nubia Minor XARELTO TABLET 15 mg 15 mg Take 1 by mouth once a day XARELTO TABLET 15 mg 15 mg Nubia Minor ANASTROZOLE 1 MG TABS by mouth once a day anastrozole 47748803546 Nubia Minor ACETAMINOPHEN 500 MG TABS by mouth every six hours PRN acetaminophen 78470206191 Nubia Minor LOPERAMIDE HCL 2 MG CAPS by mouth once a day PRN loperamide 35773923325 Nubia Minor ASCORBIC ACID 500 MG TABS by mouth 0.5 tab am and 0.5 tab pm ascorbic acid (vitamin c) 70242303421 Nubia Minor BACLOFEN 10 MG TABS by mouth three times a day baclofen 27498465497 Nubia Minor BREO ELLIPTA 100-25 MCG/ACT AEPB every morning fluticasone furoate-vilantero l 12384834909 Nubia Minor BUMETANIDE 2 MG TABS by mouth twice a day bumetanide 98469246423 Nubia Minor CALCIUM 600 1500 (600 Ca) MG TABS by mouth twice a day calcium carbonate 53584979133 Nubia Minor D3 HIGH POTENCY 10 MCG (400 UNIT) TABS by mouth 2.5 units am and 2.5 units pm cholecalciferol (vitamin d3) 97749150629 Nubia Minor PLAVIX 75 MG TABS by mouth every morning clopidogrel 12322432128 Nubia Minor VITAMIN B-12 1000 MCG TABS by mouth every morning cyanocobalamin (vitamin b-12) 54529148285 Nubia Minor FLONASE ALLERGY RELIEF 50 MCG/ACT SUSP intranasally every morning fluticasone propionate 91756683590 Nubia Minor FOSAMAX 70 MG TABS by mouth once a week alendronate 32535426242 Nubia Minor GLIPIZIDE ER 2.5 MG [id number]-ULG by mouth every morning 0.5 tab glipizide 08443842774 Nubia Minor LANTUS SOLOSTAR 100 UNIT/ML SOPN 8 unit subcutaneously every night insulin glargine 58638367934 Nubia Minor IPRATROPIUM-ALBUT MIKE 0.5-2.5 (3) MG/3ML SOLN 3 ml by mouth PRN 01/27 ipratropium-albut mike 76859445466 Nubia Minor JARDIANCE 10 MG TABS by mouth every morning empagliflozin 37217331601 Nubia Minor MAGNESIUM OXIDE 400 MG TABS by mouth twice a day magnesium oxide 65489999056 Nubia Minor METFORMIN HCL 1000 MG TABS by mouth twice a day metformin 54957376349 Nubia Minor MULTI-VITAMIN HP/MINERALS CAPS by mouth once a day multivitamin,tx-m inerals 91525456401 Nubia Minor ONDANSETRON HCL 4 MG TABS by mouth twice a day PRN ondansetron hcl 02477420401 Nubia Minor PANTOPRAZOLE SODIUM 20 MG TBEC by mouth once a day pantoprazole 38350232533 Nubia Minor PREGABALIN 50 MG CAPS by mouth three times a day pregabalin 07004634995 Nubia Isaac SENNA 8.6 MG TABS by mouth 2 tabs PRN sennosides 82956037479 Nubia Isaac SPIRONOLACTONE 50 MG TABS by mouth once a day spironolactone 48555039703 Nubia Isaac TRAZODONE HCL 150 MG TABS by mouth once a day 2 tabs trazodone 48539504846 Nubia Isaac VALSARTAN 80 MG TABS by mouth twice a day valsartan 85980863572 Nubia Isaac VENLAFAXINE HCL ER 150 MG [id number] by mouth every morning venlafaxine 07391053208 Nubia Isaac VANCOMYCIN HCL SOLR 1gm IV q 12 x 6wks [facility] [phone] 10/05 VANCOMYCIN HCL SOLR 84014891946 Libby Cabello JIMI MS CONTIN 15 MG CR-TABS by mouth twice daily 01/11 MORPHINE SULFATE 09482223268 Arie Dougherty MD PERCOCET 5-325 MG TABS 1-2 tabs, every four to six hours, do not exceed 4000mg of acetaminophen per day 01/11 OXYCODONE-ACETAMI NOPHEN 89521354855 Arie Dougherty MD [facility] IRON 325 (65 Fe) MG TABS by mouth daily 01/11 FERROUS SULFATE 00563398571 Arie Dougherty MD COLACE 100 MG CAPS by mouth twice daily as needed 02/19 DOCUSATE SODIUM 60085519254 Arie Dougherty MD DOXYCYCLINE HYCLATE 100 MG TABS take 1 tab po BID 02/19 DOXYCYCLINE HYCLATE 32154873900 Arie Dougherty MD XARELTO TABLET Take one by mouth once daily. 01/11 RIVAROXABAN TABS 01317558647 Arie Dougherty MD COUMADIN 5 MG ORAL TABLET by mouth, AC dinner 10/17 WARFARIN SODIUM 96406137023 Arie Dougherty MD VANCOMYCIN HCL SOLR 1gm IV q 12 x 6wks [facility] [phone] 08/22 VANCOMYCIN HCL SOLR 91437532277 [facility] VANCOMYCIN HCL SOLR 750 mg IV q 12 x 6wks [facility] [phone] 03/31 VANCOMYCIN HCL SOLR 09684304239 [facility] VANCOMYCIN HCL SOLR 750 mg IV q 12 x 6wks [facility] [phone] 08/22 VANCOMYCIN HCL SOLR 82017836396 Daily Lewis RN VENLAFAXINE HCL 75 MG TABS by mouth twice daily 01/11 VENLAFAXINE HCL 49471351407 Kulwant P PROMETHAZINE HCL 25 MG TABS by mouth three times a day as needed 01/11 PROMETHAZINE HCL 38044471717 Kulwant P B-12 100 MCG TABS by mouth daily 09/29 CYANOCOBALAMIN 33162851196 Kulwant P JANUMET XR 50-1000 MG [id number] by mouth twice daily 01/11 SITAGLIPTIN-METFO RMIN HCL 56318126237 Kulwant P TIZANIDINE HCL 4 MG TABS by mouth three times a day as needed 01/11 TIZANIDINE HCL 90915555011 Kulwant P GABAPENTIN 800 MG TABS by mouth four times a day as needed 01/11 GABAPENTIN 71783312880 Kulwant P CARVEDILOL 12.5 MG TABS by mouth twice daily 01/11 CARVEDILOL 72283823225 Kulwant P ANASTROZOLE 1 MG TABS by mouth daily 01/11 ANASTROZOLE 86195183603 Kulwant P CITRACAL MAXIMUM 315-6.25 MG-MCG TABS by mouth twice daily 01/11 CALCIUM CITRATE-VITAMIN D 54859775478 Kulwant P [facility] OMEPRAZOLE 20 MG TBEC 2 tabs by mouth once daily 01/11 OMEPRAZOLE 52388866934 Kulwant P BIOTIN 1000 MCG TABS by mouth daily 01/11 BIOTIN 13426971030 Kulwant P ATORVASTATIN CALCIUM 40 MG TABS by mouth at bedtime 01/11 ATORVASTATIN CALCIUM 81922427420 Kulwant P COUMADIN 5 MG ORAL TABLET by mouth, AC dinner 05/19 WARFARIN SODIUM 72826620963 Kulwant P LACTULOSE SOLN 30mL by mouth as needed 02/19 LACTULOSE SOLN 29705873949 Kulwant P HYDROCORTISONE ACETATE 1 % CREA apply topically twice a day as needed 10/25 HYDROCORTISONE ACETATE 13933834799 Kulwant P MS CONTIN 15 MG CR-TABS by mouth twice daily 11/20 MORPHINE SULFATE 86547391942 Kulwant P [facility] IRON 325 (65 Fe) MG TABS by mouth daily 11/20 FERROUS SULFATE 87437104884 Kulwant P COLACE 100 MG CAPS by mouth twice daily as needed 02/19 DOCUSATE SODIUM 29827147872 Kulwant P PERCOCET 5-325 MG TABS 1-2 tabs, every four to six hours, do not exceed 4000mg of acetaminophen per day 11/20 OXYCODONE-ACETAMI NOPHEN 16474788309 Kulwant P VANCOMYCIN HCL SOLR 1gm IV q 12 x 6wks [facility] [phone] 08/22 VANCOMYCIN HCL SOLR 62504147739 [facility] Medications Administered No information available. 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 yes Dietary management education, guidance, and counseling [...] Oral Antibiotic CPT-ca Continue IV antibiotics 2022 CPT-10505 CMP [id number] CBC with Differential 2022 CPT-36385 C- reactive protein [id number], [id number] CPK CPT-J7030 IV Fluids CPT-sl STAT Labs CPT-sl STAT Labs CPT-sl STAT Labs CPT-54285 C- reactive protein CPT-61915 Sedimentation Rate (ESR) 201 02/20/04 CPT-08536 Vancomycin Trough CPT-17991 CMP [id number] CBC with Differential 2015 CPT-77006 C- reactive protein CPT-38888 Sedimentation Rate (ESR) 201 01/31/26 CPT-ca Continue IV antibiotics 2015 CPT-wpc Weekly PICC Line Care 09/28 CPT-72460 CMP [id number] CBC with Differential 2015 CPT-46985 Vancomycin Trough CPT-98609 C- reactive protein CPT-30831 Sedimentation Rate (ESR) 201 01/31/07 CPT-cdpcr C-Diff PCR CPT-isi New IV antibiotic CPT-38780 PICC Line Insertion CPT-05679 [facility] [id number] CBC with Differential 2015 CPT-76665 C- reactive protein CPT-12567 Sedimentation Rate (ESR) 201 01/30/30 CPT-DC Discontinue IV antibiotics 2 CPT-PICREM PICC Removal CPT-ca Continue IV antibiotics 2015 CPT-02103 CMP [id number] CBC with Differential 2015 CPT-21329 C- reactive protein CPT-27789 Sedimentation Rate (ESR) 201 01/27/01 CPT-65784 Vancomycin Trough CPT-ca Continue IV antibiotics 2015 CPT-42630 CMP [id number] CBC with Differential 2015 CPT-89273 C- reactive protein CPT-45486 Sedimentation Rate (ESR) 201 01/27/20 CPT-20558 Vancomycin Trough CPT-ca Continue IV antibiotics 2015 [...]
--- OUTSIDE RECORDS SUMMARY | 2025-04-03 11:08 | XMS_ITS | Encounter Summary ---
Author Organization [facility] Address [address] [place] [address] Care Team Providers Care Wholesale Buyer Name Role Phone Daniel Barba MD Primary Care Provider [phone] Judy Huff COLLATING MACHINE OPERATOR Unavailable Unavailabl e Cayla Erazo APRN, DNP Unavailable [phone] Vingesh Pickens MD Primary Care Provider [phone] Encounter Details Date Type Department Care Team (Late Contact Info) Description 08/11/2022 Orders Only External Location [address] [place] [address] Provider, External Social History Tobacco Use Types [...] Department Care Team (Late Contact Info) Description 04/08/2025 9:20 AM EDT Office Visit [place] [facility] [address] [place] [address] Cayla Erazo APRN, FREDERICK [address] [place] [address] 05/16/2025 8:00 AM EDT Office Visit [facility] [place] [address], [address] [place] [address] Karly Gracia MD [address] [place] [address] 06/07/2025 1:00 PM EDT Office Visit [facility] [address] [place] [address] Tom Iraheta MD [address] [place] [address] documented as of this encounter [...] documented as of this encounter Care Teams Wholesale Buyer Relationship Specialty Start Date End Date Daniel Barba MD [address] [place] [address] PCP - General 01/02/21 12/30/24 Vignesh Pickens MD [address] [place] [address] PCP - General 12/31/24 Judy Huff LPN [facility] TCM Nurse 08/24/24 08/24/24 Cayla Erazo APRN, DNP [address] [place] [address] [address] Nurse Practitioner Urology 12/20/24 documented as of this encounter
--- OUTSIDE RECORDS SUMMARY | 2025-04-03 11:08 | XMS_ITS | Clinical Summary ---
Author Organization [facility] Address [address] [place] [address] Care Team Providers Care Human Resources Training Manager Name Role Phone Cayla Erazo APRN, DNP Unavailable [phone] Vignesh Pickens MD Primary Care Provider [phone] Allergies Active Allergy Reactions Criticality Noted Date [...] by mouth every 6 hours as needed. 0 Active loperamide (Imodium) 2 MG capsule Take 1 capsule by mouth every 4 hours as needed. 1 Active ondansetron (Zofran) 4 MG tablet Take 1 tablet by mouth every 6 hours as needed. 0 Active anastrozole (Arimidex) 1 MG chemo tablet Take 1 tablet (1 mg total) by mouth daily. 1 Active atorvastatin (Lipitor) 40 MG tablet Take 1 tablet by mouth daily. 8 Active baclofen (Lioresal) 10 MG tablet Take 1 tablet by mouth 3 times a day. 0 Active carvedilol (Coreg) 12.5 MG tablet Take 1 tablet by mouth 2 times a day with meals. 0 Active clopidogrel (Plavix) 75 MG tablet Take 1 tablet by mouth daily. 0 Active fluticasone (Flonase) 50 MCG/ACT nasal spray Administer 1 spray into each nostril 2 times a day. 0 Active pantoprazole (ProtoNix) 20 MG EC tablet Take 1 tablet by mouth daily before breakfast. 1 Active traZODone (Desyrel) 150 MG tablet Take 2 tablets by mouth nightly. 1 Active ferrous sulfate 325 (65 Fe) MG tablet Take 1 tablet by mouth 2 times a day. Active Breo Ellipta 100-25 MCG/ACT aerosol powder Inhale 1 puff daily. 3 Active ascorbic acid (Vitamin C) 500 MG tablet Take 1 tablet by mouth twice a day. Active magnesium oxide (Mag-Ox) 400 mg tablet Take 1 tablet by mouth 2 times a day. Active cyanocobalamin (Vitamin B-12) 1000 MCG tablet Take 1 tablet by mouth daily. Active cholecalciferol (Vitamin D3) 25 MCG (1000 UT) [...] into the vagina 3x/week 30 g 3 5 Active Additional Information Patient not taking.Reported on 03/07/2025 trospium (Sanctura) 20 MG tablet Take 1 tablet (20 mg) by mouth 2 (two) times a day. 60 tablet 5 09/26/19 26 Active Additional Information Patient not taking.Reported on 03/07/2025 D-Mannose 500 MG capsule Take 2,000 mg by mouth 1 (one) time each day. 120 capsule 5 09/26/19 26 Active mirabegron ER (Myrbetriq) 50 MG tablet Take 1 tablet by mouth daily. Active DULoxetine (Cymbalta) [address] capsule Take 1 capsule by mouth daily for 7 doses. Do not crush or chew. 5 Active insulin glargine-yfgn 100 UNIT/ML injection vial Inject 30 Units under the skin nightly. 5 Active oxyCODONE-aceta minophen (Percocet) 5-325 MG tablet Take 1 tablet by mouth 2 times a day as needed for severe pain. 6 tablet 5 Active pregabalin (Lyrica) 50 MG capsule Take 1 capsule by mouth daily. 3 capsule 5 Active fentaNYL (Duragesic) 12 MCG/HR Place 1 patch on the skin every 3rd day. 3 patch 5 Active naloxone (Narcan) 4 mg/0.1 mL nasal spray 1. Give 1 spray in nostril for no/slow breathing or cannot wake after opioid use 2. Call 911 3. 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 6 tablet 5 Active Additional Information Patient not taking.Reported on 03/07/2025 Active Problems Problem Noted Date Diagnosed Date Sepsis 02/22/2025 History of stroke 12/31/2024 Hx of AKA (above knee amputation), left 01/01/20 25 PVD (peripheral vascular disease) 12/31/2024 Asymptomatic bilateral [...] without esophagitis 03/28/2017 CAD (coronary artery disease), [place] coronary a rtery 03/28/2017 Controlled diabetes mellitus [...] Type Department Care Team Description 03/27/2025 Telephone [facility] Urology [address] [place] [address] Doug Chapman MD 03/07/2025 10:00 AM EDT Office Visit [facility] Urology [address] [place] [address] Doug Chapman MD Gross hematuria 03/07/2025 Travel 03/04/2025 Results Follow-Up [facility] Virtual Dept. [address] [place] [address] Madonna Singleton MD 03/01/2025 Telephone [facility] [address] [address] Dental, Surgeon, 02/28/2025 8:15 AM EDT Office Visit [facility] [address] [place] [phone] Bert Lim, DMD Caries (Primary Dx) 02/28/2025 Travel 02/27/2025 Travel 02/24/2025 Travel 02/22/2025 6:13 PM EDT - 03/02/2025 11:04 AM EDT Hospital Encounter [facility] [address] [place] [address] Daniel Gordillo MD Salahuddin, Nawal, MD Powers, [...] extremity above knee Discharge Disposition: [facility] Facility 02/22/2025 Travel 02/22/2025 Orders Only External Location [address] [place] [phone] Jordan Carl MD 02/22/2025 Orders Only External Location [address] [place] [address] Jordan Carl MD 02/22/2025 Orders Only External Location [address] [place] [address] Jordan Carl MD 02/22/2025 Orders Only External Location [address] [place] [address] Jordan Carl MD 01/31/2025 9:48 AM EDT Anesthesia Event [facility] [address] [place] [address] jN Sears MD 01/31/2025 8:55 AM EDT - 01/31/2025 10:10 AM EDT Surgery [facility] [address] [place] [address] Ceci Mitchell MD URETEROSCOPY,CYSTOSCO PY, RETROGRADE PYELOGRAM, BILATERAL STENT PLACEMENT [40730 (CPT )] 01/31/2025 8:03 AM EDT - 01/31/2025 1:39 PM EDT Hospital Encounter [facility] [address] [place] [address] Ceci Mitchell MD Urinary retention (Primary Dx); Gross hematuria Discharge Disposition: Home or Self Care 01/31/2025 Travel 01/24/2025 2:00 PM EDT Pre-[facility] Testing [facility] [address] [place] [address] 01/24/2025 Travel 01/23/2025 Telephone [facility] Urology [address] [place] [address] Ceci Mitchell MD 01/17/2025 Telephone [facility] Urology [address] [place] [address] Ceci Mitchell MD 01/16/2025 Telephone [facility] Urology [address] [place] [address] Ceci Mitchell MD 01/03/2025 2:15 PM EDT - 01/03/2025 11:59 PM EDT Hospital Encounter [facility] [address] [place] [address] Gross hematuria Discharge Disposition: Home or Self Care 01/03/2025 Travel from Last 3 Months Immunizations Immunization Administration Dates Next Due Influenza, injectable, quadrivalent, preservativ e free 05/11/2016 dough COVID-19 Vaccine (Purple Cap) 12 + 09/30/2020,09/09/2020 [...] drink first t rodríguez in the morning (EYE-AUDIO VISUAL TECH) to steady your nerves or to [...] Description 04/08/2025 9:20 AM EDT Office Visit [facility] Urology [address] [place] [address] Cayla Erazo, SENIOR JAVA SOFTWARE ENGINEER, DNP [address] [place] [address] 05/16/2025 8:00 AM EDT Office Visit [facility] [place] [address] [facility], [address] [place] [address] Karly Gracia MD [address] [place] [address] 06/07/2025 1:00 PM EDT Office Visit [facility] [address] [place] [address] Tom Iraheta MD [address] [place] [address] Health Maintenance Due Date Last Done Comments Dental Oral Exam 1959 Dental Prophylaxis 1959 Dental X-Ray: Bitewings 1959 Dental X-Ray: Full Mouth 1959 [facility]-Bone Density Scan 1960 [facility]Medicare Annual Wellness (AWV) 1959 [facility]-Infant/Child/Adol SDOH Screenings [...] - Risk 60-74 years 1-dose series) 2019 [id number] Vaccine (3 - Pfizer risk series) 10/28/2020 [...] this topic Medical Devices Implanted Type Area Cardiac Exercise Specialist Device Identifier Shelf Expiration Date Model / Serial / Lot Stent Ureteral Tria Firm Monofilament 7f/24cm - [id number] Implanted:Qty: 1 on 01/31/2025 by Ceci Mitchell MD at [facility] Right: Kid[employer]-[id number] 06/14/2027 [id number] / / [id number] Stent Ureteral Tria Firm Monofilament 7f/24cm - [id number] Implanted:Qty: 1 on 01/31/2025 by Ceci Mitchell MD at [facility] Left: [employer]-[id number] 07/02/2027 [id number] / / [id number] Procedures Procedure Name Priority Date/Time Associated Diagnosis [...] hypercapnia Acute kidney injury superimposed on CKD ([facility]) Chronic kidney disease, stage 3a ([facility]) Hyponatremia Acute encephalopathy Sepsis with encephalopathy without septic shock, due to unspecified organism ([facility]) Chronic diastolic (congestive) heart failure ([facility]) POCT GLUCOSE METER UNSOLICITED RESULTS Routine 02/24/2025 [...] hypercapnia Acute kidney injury superimposed on CKD ([facility]) Chronic kidney disease, stage 3a ([facility]) Hyponatremia Acute encephalopathy Sepsis with encephalopathy without septic shock, due to unspecified organism ([facility]) VANCOMYCIN, RANDOM, PLASMA Routine 02/23/2025 8:34 AM [...] ENDOTRACHEAL AIRWAY Routine 01/31/2025 9:58 AM EDT SC CYSTO/URETERO/PYELOSC ,BX &/OR FULG LESN 01/31/2025 9:32 AM EDT Gross hematuria POCT GLUCOSE METER UNSOLICITED RESULTS Routine 01/31/2025 8:[address] UROGRAM Routine 01/03/2025 3:01 PM EDT Gross hematuria HEPATITIS C ANTIBODY - ED W/REFLEX TO [...] - 99 mg/dL 03/02/2025 8:14 AM EDT [facility] Comment:Accuracy of a glucos e [...] for testing. Comment 03/02/2025 8:14 AM EDT [facility] Labor/Excavator ID Stefanie Frances 025 8:14 AM EDT [facility] Device ID [id number] 03/02/2025 8:14 AM EDT [facility] Specimen Type POC Capillary 03/02/2025 8:14 AM EDT [facility]ALTH[facility]ARE [facility] Blood Capillary blood specimen / Unknown 03/02/2025 8:13 AM EDT 03/02/2025 8:14 AM EDT us Madonna Singleton MD LAB POINT OF CARE TE ST DOCKED DEVICE UNSOLICITED RESULTS Final Result Performing Organization Address City/[facility]/ZIP Co de Phone Number [facility] [address] [place] [address] * SEND HECTOR MESSAGE (03/01/2025 4:15 PM EDT) Only the most recent of2 resultswithin the time period is included. Urine Urine specimen obtained by clean catch procedure / Unknown Non-blood Collection / Unknown 03/01/2025 4:15 PM EDT 03/01/2025 4:26 PM EDT us Madonna Singleton MD LAB URINE ORDERABLES Final Resul t Performing Organization Address [facility] de Phone Number [facility] [address] [place] [address] * Urine Salmon Panel (03/01/2025 4:15 PM EDT) Only the most recent of2 resultswithin the time period is included. Extra Sent for Culture 03/01/2025 6:01 PM EDT [facility] Urine Urine specimen obtained by clean catch procedure / Unknown Non-blood Collection / Unknown 03/01/2025 4:15 PM EDT 03/01/2025 4:26 PM EDT us Madonna Singleton MD LAB URINE ORDERABLES Final Resul t Performing Organization Address [facility] de Phone Number [facility] [address] [place] [address] * Urinalysis Microscopic Examination (03/01/2025 4:15 PM EDT) Only the most recent of2 resultswithin the time period is included. Urine Urine specimen obtained by clean catch procedure / Unknown Non-blood Collection / Unknown 03/01/2025 4:15 PM EDT 03/01/2025 4:26 PM EDT us Madonna Singleton MD LAB URINE ORDERABLES Final Resul t Performing Organization Address City/[facility] Co de Phone Number [facility] [address] [place] [address] * (ABNORMAL) Urinalysis with reflex microscopic (Culture NOT Included) (03/01/2025 4:15 PM EDT) Only the most recent of2 resultswithin the time period is included. Color, Urine Yellow LAB URINALYSIS - AUTOMATED METHOD 03/01/2025 4:34 PM EDT [facility] Clarity, Urine Cloudy LAB URINALYSIS - AUTOMATED METHOD 03/01/2025 4:34 PM EDT [facility] Spec [place], Urine 1.008 1.005 - 1.030 LAB URINALYSIS - AUTOMATED METHOD 03/01/2025 4:34 PM EDT [facility] pH, Urine 6.5 5.0 - 8.0 LAB URINALYSIS - AUTOMATED METHOD 03/01/2025 4:34 PM EDT [facility] Protein, Urine 30(A) Negative mg/dL LAB URINALYSIS - AUTOMATED METHOD 03/01/2025 4:34 PM EDT [facility] Glucose, Urine Negative Negative mg/dL LAB URINALYSIS - AUTOMATED METHOD 03/01/2025 4:34 PM EDT [facility] Ketones, Urine Negative Negative mg/dL LAB URINALYSIS - AUTOMATED METHOD 03/01/2025 4:34 PM EDT [facility] Blood, Urine Large(A) Negative LAB URINALYSIS - AUTOMATED METHOD 03/01/2025 4:34 PM EDT [facility] Bilirubin, Urine Negative Negative LAB URINALYSIS - AUTOMATED METHOD 03/01/2025 4:34 PM EDT [facility] Urobilinogen, Urine 0.2 0.2 to 1.0 mg/dL LAB URINALYSIS - AUTOMATED METHOD 03/01/2025 4:34 PM EDT [facility] Leukocytes, Urine Large(A) Negative LAB URINALYSIS - AUTOMATED METHOD 03/01/2025 4:34 PM EDT [facility] Nitrite, Urine Negative Negative LAB URINALYSIS - AUTOMATED METHOD 03/01/2025 4:34 PM EDT [facility] RBC, Urine >50(A) 0 to 3 /HPF LAB URINALYSIS - AUTOMATED METHOD 03/01/2025 4:34 PM EDT [facility] WBC, Urine >50(A) 0 to 5 /HPF LAB URINALYSIS - AUTOMATED METHOD 03/01/2025 4:34 PM EDT [facility] Squamous Epithelial Cells 3 - 5 0 to 5 /HPF LAB URINALYSIS - AUTOMATED METHOD 03/01/2025 4:34 PM EDT [facility] Hyaline Casts 0 - 2 0 to 5 /LPF LAB URINALYSIS - AUTOMATED METHOD 03/01/2025 4:34 PM EDT [facility] Bacteria, Urine Negative Negative LAB URINALYSIS - AUTOMATED METHOD 03/01/2025 4:34 PM EDT [facility] Urine Urine specimen obtained by clean catch procedure / Unknown Non-blood Collection / Unknown 03/01/2025 4:15 PM EDT 03/01/2025 4:26 PM EDT us Madonna Mani [facility] URINE ORDERABLES Final Resul t [facility] [address] [place] [address] * (ABNORMAL) Urine Culture (03/01/2025 4:15 PM EDT) Only the most recent of3 resultswithin the time period is included. Culture 10,000 - 100,000 CFU/mL Enterobacter cloacae complex(A) CHRISTIANO 03/05/2025 12:12 PM EDT [facility] Comment: This isolate has been identified using the FDA Approved [employer] System Edited result: Previously reported as [...] MICROBIOLOGY - GENERAL ORDER GIO Final Result [facility] [address] [place] [address] * (ABNORMAL) CBC and Differential (03/01/2025 4:08 AM EDT) Only the most recent of4 resultswithin the time period is included. WBC Count 6.83 3.70 - 10.30 10*3/uL LAB HEMATOLOGY METHOD 03/01/2025 4:54 AM EDT [facility] RBC Count 3.61(L) 3.90 - 5.20 10*6/uL LAB HEMATOLOGY METHOD 03/01/2025 4:54 AM EDT [facility] HGB 9.2(L) 11.2 - 15.7 g/dL LAB HEMATOLOGY METHOD 03/01/2025 4:54 AM EDT [facility] HCT 29.9(L) 34.0 - 45.0 % LAB HEMATOLOGY METHOD 03/01/2025 4:54 AM EDT [facility] Platelet Count 294 155 - 369 10*3/uL LAB HEMATOLOGY METHOD 03/01/2025 4:54 AM EDT [facility] MCV 83 79 - 98 fL LAB HEMATOLOGY METHOD 03/01/2025 4:54 AM EDT [facility] MCH 25.5(L) 26.0 - 32.0 pg LAB HEMATOLOGY METHOD 03/01/2025 4:54 AM EDT [facility] MCHC 30.8 30.7 - 35.5 g/dL LAB HEMATOLOGY METHOD 03/01/2025 4:54 AM EDT [facility] RDW 15.1(H) 11.5 - 14.5 % LAB HEMATOLOGY METHOD 03/01/2025 4:54 AM EDT [facility] MPV 9.2 8.8 - 12.5 fL LAB HEMATOLOGY METHOD 03/01/2025 4:54 AM EDT [facility] nRBC 0.0 <=0.0 per 100 WBCs LAB HEMATOLOGY METHOD 03/01/2025 4:54 AM EDT [facility] Differential Type Automated LAB HEMATOLOGY METHOD 03/01/2025 4:54 AM EDT [facility] Neutrophils % 56 % LAB HEMATOLOGY METHOD 03/01/2025 4:54 AM EDT [facility] Lymphocytes % 25 % LAB HEMATOLOGY METHOD 03/01/2025 4:54 AM EDT [facility] Monocytes % 11 % LAB HEMATOLOGY METHOD 03/01/2025 4:54 AM EDT [facility] Eosinophils % 6 % LAB HEMATOLOGY METHOD 03/01/2025 4:54 AM EDT [facility] Basophils % 1 % LAB HEMATOLOGY METHOD 03/01/2025 4:54 AM EDT [facility] Immature Granulocytes % 1 % LAB HEMATOLOGY METHOD 03/01/2025 4:54 AM EDT [facility] Neutrophils Absolute 3.86 1.60 - 6.10 10*3/uL LAB HEMATOLOGY METHOD 03/01/2025 4:54 AM EDT [facility] Lymphocytes Absolute 1.70 1.20 - 3.90 10*3/uL LAB HEMATOLOGY METHOD 03/01/2025 4:54 AM EDT [facility] Monocytes Absolute 0.74 0.30 - 0.90 10*3/uL LAB HEMATOLOGY METHOD 03/01/2025 4:54 AM EDT [facility] Eosinophils Absolute 0.44 0.00 - 0.50 10*3/uL LAB HEMATOLOGY METHOD 03/01/2025 4:54 AM EDT [facility] Basophils Absolute 0.05 0.00 - 0.10 10*3/uL LAB HEMATOLOGY METHOD 03/01/2025 4:54 AM EDT [facility] Immature Granulocytes Absolute 0.04 0.00 - 0.06 10*3/uL LAB HEMATOLOGY METHOD 03/01/2025 4:54 AM EDT [facility] Blood Venous blood specimen / Unknown Venipuncture / Unknown 03/01/2025 4:08 AM EDT 03/01/2025 4:42 AM EDT Narrative [facility] - 03/01/2025 4:54 AM EDT Therapeutic decision making should be based on absolute values, rather than percentages. Madonna Singleton MD LAB BLOOD ORDERABLES Final Resul t Performing Organization Address City/[facility] Co de Phone Number [facility] [address] [place] [address] * Phosphorus, Plasma (03/01/2025 4:08 AM EDT) Only the most recent of4 resultswithin the time period is included. Phosphorus, Plasma 4.4 2.5 - 4.5 mg/dL 03/01/2025 5:14 AM EDT [facility] Blood Venous blood specimen / Unknown Venipuncture / Unknown 03/01/2025 4:08 AM EDT 03/01/2025 4:43 AM EDT us Madonna Singleton MD LAB BLOOD ORDERABLES Final Resul t Performing Organization Address City/[facility]/ZIP Co de Phone Number [facility] [address] [place] [address] * Magnesium, Plasma (03/01/2025 4:08 AM EDT) Only the most recent of5 resultswithin the time period is included. Magnesium, Plasma 2.0 1.9 - 2.4 mg/dL 03/01/2025 5:14 AM EDT [facility] Blood Venous blood specimen / Unknown Venipuncture / Unknown 03/01/2025 4:08 AM EDT 03/01/2025 4:43 AM EDT us Madonna Singleton MD LAB BLOOD ORDERABLES Final Resul t [facility] [address] [place] [address] * (ABNORMAL) Basic Metabolic Panel, Plasma (03/01/2025 4:08 AM EDT) Only the most recent of4 resultswithin the time period is included. Glucose, Plasma 205(H) 74 - 99 mg/dL 03/01/2025 5:14 AM EDT [facility] BUN, Plasma 40(H) 8 - 23 mg/dL 03/01/2025 5:14 AM EDT [facility] Creatinine, Plasma 1.84(H) 0.60 - 1.10 mg/dL 03/01/2025 5:14 AM EDT [facility] BUN/Creatinine Ratio 22 03/01/2025 5:14 AM EDT [facility] Sodium, Plasma 125(L) 136 - 145 mmol/L 03/01/2025 5:14 AM EDT [facility] Potassium, Plasma 4.5 3.6 - 4.9 mmol/L 03/01/2025 5:14 AM EDT [facility] Chloride, Plasma 91(L) 97 - 107 mmol/L 03/01/2025 5:14 AM EDT [facility] CO2, Plasma 23 22 - 29 mmol/L 03/01/2025 5:14 AM EDT [facility] Anion Gap 11 6 - 16 mmol/L 03/01/2025 5:14 AM EDT [facility] Total Calcium, Plasma 8.8(L) 8.9 - 10.2 mg/dL 03/01/2025 5:14 AM EDT [facility] eGFRcr 30.1 mL/min/1.7 3m*2 03/01/2025 5:14 AM EDT [facility] Comment:Reported eGFRcr in m L/min/1.73m2 is based the CKD-EPI 2020 equation that does not use a race coefficient. Blood Venous blood specimen / Unknown Venipuncture / Unknown 03/01/2025 4:08 AM EDT 03/01/2025 4:43 AM EDT us Madonna Singleton MD LAB BLOOD ORDERABLES Final Resul t [facility] [address] [place] [address] * XR Panorex (02/27/2025 12:13 PM EDT) [...] in the posterior aspect of tooth #31. [place] wear in tooth number 8, 9 and 23. No periapical lucency Procedure Note Lucas Cristobal MD - 02/27/2025 CLINICAL INDICATION: Odontogenic infection TECHNIQUE: XR PANOREX COMPARISON: None. FINDINGS: Rounded lucency in tooth #6. Aggressive destruction in the posterioraspect of tooth #31. [place] wear in tooth number 8, 9 [...] LAB HEMATOLOGY METHOD 02/26/2025 5:25 AM EDT [facility] RBC Count 4.00 3.90 - 5.20 10*6/uL LAB HEMATOLOGY METHOD 02/26/2025 5:25 AM EDT [facility] HGB 10.3(L) 11.2 - 15.7 g/dL LAB HEMATOLOGY METHOD 02/26/2025 5:25 AM EDT [facility] HCT 32.3(L) 34.0 - 45.0 % LAB HEMATOLOGY METHOD 02/26/2025 5:25 AM EDT [facility] Platelet Count 375(H) 155 - 369 10*3/uL LAB HEMATOLOGY METHOD 02/26/2025 5:25 AM EDT [facility] MCV 81 79 - 98 fL LAB HEMATOLOGY METHOD 02/26/2025 5:25 AM EDT [facility] MCH 25.8(L) 26.0 - 32.0 pg LAB HEMATOLOGY METHOD 02/26/2025 5:25 AM EDT [facility] MCHC 31.9 30.7 - 35.5 g/dL LAB HEMATOLOGY METHOD 02/26/2025 5:25 AM EDT [facility] RDW 15.5(H) 11.5 - 14.5 % LAB HEMATOLOGY METHOD 02/26/2025 5:25 AM EDT [facility] MPV 8.9 8.8 - 12.5 fL LAB HEMATOLOGY METHOD 02/26/2025 5:25 AM EDT [facility] nRBC 0.0 <=0.0 per 100 WBCs LAB HEMATOLOGY METHOD 02/26/2025 5:25 AM EDT [facility] Blood Venous blood specimen / Unknown Venipuncture / Unknown 02/26/2025 4:51 AM EDT 02/26/2025 5:12 AM EDT us Ludy Hill MD LAB BLOOD ORDERABLES Final Resul t [facility] [address] [place] [address] * (ABNORMAL) Renal function panel (02/26/2025 4:51 AM EDT) [facility] Glucose, Plasma 156(H) 74 - 99 mg/dL 02/26/2025 5:54 AM EDT [facility] BUN, Plasma 26(H) 8 - 23 mg/dL 02/26/2025 5:54 AM EDT [facility] Creatinine, Plasma 1.62(H) 0.60 - 1.10 mg/dL 02/26/2025 5:54 AM EDT [facility] BUN/Creatinine Ratio 16 02/26/2025 5:54 AM EDT [facility] Sodium, Plasma 133(L) 136 - 145 mmol/L 02/26/2025 5:54 AM EDT [facility] Potassium, Plasma 4.2 3.6 - 4.9 mmol/L 02/26/2025 5:54 AM EDT [facility] Chloride, Plasma 96(L) 97 - 107 mmol/L 02/26/2025 5:54 AM EDT [facility] CO2, Plasma 24 22 - 29 mmol/L 02/26/2025 5:54 AM EDT [facility] Anion Gap 13 6 - 16 mmol/L 02/26/2025 5:54 AM EDT [facility] Total Calcium, Plasma 8.9 8.9 - 10.2 mg/dL 02/26/2025 5:54 AM EDT [facility] Phosphorus, Plasma 3.8 2.5 - 4.5 mg/dL 02/26/2025 5:54 AM EDT [facility] Albumin, Plasma 3.5 3.5 - 5.2 g/dL 02/26/2025 5:54 AM EDT [facility] eGFRcr 35.1 mL/min/1.7 3m*2 02/26/2025 5:54 AM EDT [facility] Comment:Reported eGFRcr in m L/min/1.73m2 is based the CKD-EPI 2020 equation that does not use a race coefficient. Blood Venous blood specimen / Unknown Venipuncture / Unknown 02/26/2025 4:51 AM EDT 02/26/2025 5:13 AM EDT us Ludy Hill MD LAB BLOOD ORDERABLES Final Resul t Performing Organization Address City/[facility] Co de Phone Number [facility] [address] [place] [address] * ECG Adult (02/25/2025 6:38 PM EDT) Only the most recent of4 resultswithin the time period is included. EKG DIAGNOSIS CLASS Abnormal MUSE ECG Ventricular Rate 68 BPM MUSE ECG Atrial Rate 68 BPM MUSE ECG SC Interval 198 ms MUSE ECG QRSD Interval 136 ms MUSE ECG QT Interval 450 ms MUSE ECG QTC Interval 478 ms MUSE ECG P [place] 71 degrees MUSE ECG R [place] 265 degrees MUSE ECG T Wave [place]ev[place] 50 degrees MUSE ECG Diagnosis Sinus rhythm with marked sinus arrhythmia MUSE ECG Diagnosis Right bundle branch block MUSE ECG Diagnosis Abnormal ECG MUSE ECG Diagnosis MUSE ECG Diagnosis Confirmed by Karly Gracia ([id number]) on 02/26/2025 3:20:41 PM MUSE ECG 02/25/2025 6:38 PM EDT 02/26/2025 3:20 PM EDT us Ludy Hill MD ECG ORDERABLES Final Result Performing Organization Address [facility] Co de Phone Number MUSE ECG * (ABNORMAL) Cystatin C (02/25/2025 1:36 AM EDT) Only the most recent of3 resultswithin the time period is included. Pathologist [facility] Cystatin C 2.37(H) 0.61 - 0.95 mg/L 02/25/2025 2:27 AM EDT [facility] Blood Venous blood specimen / Unknown Venipuncture / Unknown 02/25/2025 1:36 AM EDT 02/25/2025 1:57 AM EDT us Daniel Ralph MD LAB BLOOD ORDERABLES Final R esult Performing Organization Address City/[facility]/ZIP Co de Phone Number [facility] [address] [place] [address] * SC CRITICAL CARE, E/M 30-74 MINUTES [...] LAB HEMATOLOGY METHOD 02/24/2025 1:14 AM EDT [facility] Blood Venous blood specimen / Unknown Venipuncture / Unknown 02/24/2025 1:01 AM EDT 02/24/2025 1:13 AM EDT Daniel Ralph MD LAB BLOOD ORDERABLES Final R esult [facility] [address] [place] [address] * (ABNORMAL) Procalcitonin (02/24/2025 1:01 AM EDT) Only the most recent of2 resultswithin the time period is included. Procalcitonin, Plasma 0.12(H) <0.09 ng/mL 02/24/2025 1:44 AM EDT [facility] Blood Venous blood specimen / Unknown Venipuncture / Unknown 02/24/2025 1:01 AM EDT 02/24/2025 1:06 AM EDT Narrative [facility] - 02/24/2025 1:44 AM EDT [...] predict 28 day mortality risk. Please consult [email or web address]-[email or web address].[email or web address] for more information. Test performed at [facility], [facility] Laboratory. us Daniel Ralph MD LAB BLOOD ORDERABLES Final R esult [facility] [address] [place] [address] * (ABNORMAL) Blood gas panel, venous (02/24/2025 1:01 AM EDT) Only the most recent of5 resultswithin the time period is included. pH, Venous 7.43 7.32 - 7.43 LAB HEMATOLOGY METHOD 02/24/2025 1:19 AM EDT [facility] pCO2, Venous 40 37 - 52 mmHg LAB HEMATOLOGY METHOD 02/24/2025 1:19 AM EDT [facility] pO2, Venous 143(H) 25 - 40 mmHg LAB HEMATOLOGY METHOD 02/24/2025 1:19 AM EDT [facility] SO2, Measured, Venous 98(H) 65 - 80 % LAB HEMATOLOGY METHOD 02/24/2025 1:19 AM EDT [facility] Base Excess, Venous 1.9 -2.0 - 3.0 mmol/L LAB HEMATOLOGY METHOD 02/24/2025 1:19 AM EDT [facility] Bicarbonate, Calculated, Venous 27(H) 22 - 26 mmol/L LAB HEMATOLOGY METHOD 02/24/2025 1:19 AM EDT [facility] Hematocrit, Whole Blood 27.7(L) 34.0 - 45.0 % LAB HEMATOLOGY METHOD 02/24/2025 1:19 AM EDT [facility] Sodium, Whole Blood 132(L) 136 - 145 mmol/L LAB HEMATOLOGY METHOD 02/24/2025 1:19 AM EDT [facility] Potassium, Whole Blood 4.3 3.6 - 4.9 mmol/L LAB HEMATOLOGY METHOD 02/24/2025 1:19 AM EDT [facility] Chloride, Whole Blood 99 97 - 107 mmol/L LAB HEMATOLOGY METHOD 02/24/2025 1:19 AM EDT [facility] Glucose, Whole Blood 154(H) 74 - 99 mg/dL LAB HEMATOLOGY METHOD 02/24/2025 1:19 AM EDT [facility] Lactate, Venous, Whole Blood 0.9 0.5 - 2.2 mmol/L LAB HEMATOLOGY METHOD 02/24/2025 1:19 AM EDT [facility] Ionized Calcium, Whole Blood 4.2(L) 4.6 - 5.1 mg/dL LAB HEMATOLOGY METHOD 02/24/2025 1:19 AM EDT [facility] Blood Venous blood specimen / Unknown Venipuncture / Unknown 02/24/2025 1:01 AM EDT 02/24/2025 1:13 AM EDT us Daniel Ralph MD LAB BLOOD ORDERABLES Final R esult [facility] [address] [place] [address] * (ABNORMAL) Comprehensive metabolic panel (02/24/2025 1:01 AM EDT) Only the most recent of2 resultswithin the time period is included. Glucose, Plasma 152(H) 74 - 99 mg/dL 02/24/2025 1:44 AM EDT [facility] BUN, Plasma 40(H) 8 - 23 mg/dL 02/24/2025 1:44 AM EDT [facility] Creatinine, Plasma 2.04(H) 0.60 - 1.10 mg/dL 02/24/2025 1:44 AM EDT [facility] BUN/Creatinine Ratio 20 02/24/2025 1:44 AM EDT [facility] Sodium, Plasma 132(L) 136 - 145 mmol/L 02/24/2025 1:44 AM EDT [facility] Potassium, Plasma 4.9 3.6 - 4.9 mmol/L 02/24/2025 1:44 AM EDT [facility] Chloride, Plasma 97 97 - 107 mmol/L 02/24/2025 1:44 AM EDT [facility] CO2, Plasma 22 22 - 29 mmol/L 02/24/2025 1:44 AM EDT [facility] Anion Gap 13 6 - 16 mmol/L 02/24/2025 1:44 AM EDT [facility] Total Calcium, Plasma 8.6(L) 8.9 - 10.2 mg/dL 02/24/2025 1:44 AM EDT [facility] Total Protein 6.9 6.3 - 7.9 g/dL 02/24/2025 1:44 AM EDT [facility] Albumin, Plasma 3.3(L) 3.5 - 5.2 g/dL 02/24/2025 1:44 AM EDT [facility] AST, Plasma 16 10 - 35 U/L 02/24/2025 1:44 AM EDT [facility] Comment:Hemolyzed, result ma y be falsely increased. ALT, Plasma 15 10 - 35 U/L 02/24/2025 1:44 AM EDT [facility] Alkaline Phosphatase, Plasma 105 46 - 142 U/L 02/24/2025 1:44 AM EDT [facility] Total Bilirubin, Plasma <0.2(L) 0.2 - 1.1 mg/dL 02/24/2025 1:44 AM EDT [facility] eGFRcr 26.6 mL/min/1.7 3m*2 02/24/2025 1:44 AM EDT [facility] Comment:Reported eGFRcr in m L/min/1.73m2 is based the CKD-EPI 2020 equation that does not use a race coefficient. Blood Venous blood specimen / Unknown Venipuncture / Unknown 02/24/2025 1:01 AM EDT 02/24/2025 1:06 AM EDT us Daniel Ralph MD LAB BLOOD ORDERABLES Final R esult Performing Organization Address City/[facility]/ZIP Co de Phone Number [facility] [address] [place] [address] * Sodium, urine, random (02/23/2025 3:12 PM EDT) Sodium, Urine 31 mmol/L 02/23/2025 4:03 PM EDT [facility] Urine Urine specimen from urinary conduit / Unknown Non-blood Collection / Unknown 02/23/2025 3:12 PM EDT 02/23/2025 3:24 PM EDT us Daniel Ralph MD LAB URINE ORDERABLES Final R esult Performing Organization Address [facility] de Phone Number [facility] [address] [place] [address] * Osmolality, urine (02/23/2025 3:12 PM EDT) Osmolality, Urine 408 50 - 1,200 mOsm/kg 02/23/2025 3:59 PM EDT [facility] Urine Urine specimen from urinary conduit / Unknown Non-blood Collection / Unknown 02/23/2025 3:12 PM EDT 02/23/2025 3:23 PM EDT us Daniel Ralph MD LAB URINE ORDERABLES Final R esult Performing Organization Address City/[facility] Co de Phone Number [facility] [address] [place] [address] * (ABNORMAL) Sodium (02/23/2025 3:04 PM EDT) Only the most recent of4 resultswithin the time period is included. Sodium, Plasma 129(L) 136 - 145 mmol/L 02/23/2025 3:44 PM EDT [facility] Blood Venous blood specimen / Unknown Venipuncture / Unknown 02/23/2025 3:04 PM EDT 02/23/2025 3:13 PM EDT us Daniel Ralph MD LAB BLOOD ORDERABLES Final R esult Performing Organization Address City/[facility]/[place] [address] * Osmolality (02/23/2025 3:04 PM EDT) Pathologist [facility] Osmolality, Serum 289 280 - 301 mOsm/Kg 02/23/2025 4:11 PM EDT [facility] Blood Venous blood specimen / Unknown Venipuncture / Unknown 02/23/2025 3:04 PM EDT 02/23/2025 3:13 PM EDT us Daniel Ralph MD LAB BLOOD ORDERABLES Final R esult Performing Organization Address [facility]/[place] [address] * Streptococcus pneumoniae and Legionella Urinary Antigen (02/23/2025 11:05 AM EDT) [facility] Legionella pneumophila serogroup 1 Antigen Result (Urine) Negative Negative 02/24/2025 7:01 AM EDT [facility] Streptococcus pneumoniae Antigen Result (Urine) Negative Negative 02/24/2025 7:01 AM EDT [facility] Urine Urine specimen obtained by clean catch procedure / Unknown Non-blood Collection / Unknown 02/23/2025 11:05 AM EDT 02/23/2025 11:16 AM EDT us Daniel Ralph MD LAB MICROBIOLOGY - GENERAL O RDERABLES Final Result Performing Organization Address [facility]/[place] [address] * SC CRITICAL CARE, E/M 30-74 MINUTES (02/23/2025 9:10 AM EDT) Narrative Daniel Ralph MD - 02/23/2025 9:10 AM EDT Daniel Ralph MD 02/26/2025 4:07 PM Critical Care Performed by: Daniel Ralph MD Authorized by: Dainel Ralph MD Critical care provider statement: Critical [...] Plasma 25.9 ug/mL 02/23/2025 9:20 AM EDT [facility] Blood Venous blood specimen / Unknown Venipuncture / Unknown 02/23/2025 8:34 AM EDT 02/23/2025 8:50 AM EDT us Daniel Ralph MD LAB BLOOD ORDERABLES Final R esult [facility] [address] [place] [address] * (ABNORMAL) Nasopharyngeal Respiratory Panel (02/23/2025 2:05 AM EDT) Human Rhinovirus/Ent erovirus PCR Result Detected( A) Not Detected 02/23/2025 5:07 AM EDT [facility] Swab Nasopharyngeal structure / Unknown Non-blood Collection / Unknown 02/23/2025 2:05 AM EDT 02/23/2025 3:06 AM EDT Narrative [facility] - 02/23/2025 5:07 AM EDT [...] Respiratory PCR Panel is performed using the [employer] instrument. This test is FDA approved for use with Nasopharyngeal swabs only. This test is used for clinical purposes. It should not be regarded as investigational or for research. The [facility] is certified under the Clinical Laboratory Improvement Amendments of 1988 (CLIA-88) as qualified to perform high complexity clinical laboratory testing. Daniel Ralph MD LAB MICROBIOLOGY - GENERAL O RDERABLES Final Result [facility] [address] [place] [address] * (ABNORMAL) Methicillin Resistant Staphylococcus aureus (MRSA) by PCR (02/23/2025 2:05 AM EDT) Methicillin Resistant Staphylococcus aureus (MRSA) by PCR Detected( A) Not Detected 02/23/2025 4:19 AM EDT [facility] Swab Both anterior nares / Unknown Non-blood Collection / Unknown 02/23/2025 2:05 AM EDT 02/23/2025 3:06 AM EDT Narrative [facility] - 02/23/2025 4:19 AM EDT [...] RDERABLES Final Result Performing Organization Address [facility] de Phone Number [facility] [address] [place] [address] * (ABNORMAL) Troponin T, High Sensitivity, 2 Hour, Plasma (02/23/2025 2:04 AM EDT) Troponin T, High Sensitivity, 2 Hour 37(H) <14 ng/L 02/23/2025 2:52 AM EDT [facility] Troponin Delta Interpretation Not Calculated 02/23/2025 2:52 AM EDT [facility] Comment:Specimen not collect ed within acceptable timeframe. Delta will not be calculated. Blood Venous blood specimen / Unknown Venipuncture / Unknown 02/23/2025 2:04 AM EDT 02/23/2025 2:24 AM EDT us Daniel Ralph MD LAB BLOOD ORDERABLES Final R esult Performing Organization Address [facility] de Phone Number [facility] [address] [place] [address] * Anti Xa Level Low Molecular Weight (02/23/2025 2:04 AM EDT) Anti Xa Level Low Molecular Weight Heparin 1.12 <2.00 IU/mL LAB COAGULATION METHOD 02/23/2025 2:44 AM EDT [facility] Blood Venous blood specimen / Unknown Venipuncture / Unknown 02/23/2025 2:04 AM EDT 02/23/2025 2:24 AM EDT Narrative [facility] - 02/23/2025 2:44 AM EDT Therapeutic Range: LMWH enoxaparin 1mg/kg/dose, 12hrs - peak (3-5 hours after dose): 0.5 - 1.0 IU/mL LMWH enoxaparin 1.5mg/kg/dose, 24hrs - peak (3-5 hours after dose): 1.0 - 2.0 IU/mL LMWH enoxaparin prophylaxis: Not established Daniel Ralph MD LAB BLOOD ORDERABLES Final R esult Performing Organization Address [facility]/ZIP Co de Phone Number [facility] [address] [place] [address] * (ABNORMAL) Troponin T, High Sensitivity, 0 Hour Plasma, Reflex to 2 Hour (02/23/2025 12:05 AM EDT) Troponin T, High Sensitivity, 0 Hour 40(H) <14 ng/L 02/23/2025 12:44 AM EDT [facility] Blood Venous blood specimen / Unknown Venipuncture / Unknown 02/23/2025 12:05 AM EDT 02/23/2025 12:17 AM EDT Daniel Ralph MD LAB BLOOD ORDERABLES Final R esult Performing Organization Address [facility] Co de Phone Number [facility] [address] [place] [address] * (ABNORMAL) Quantitative BAL/PAL/Bronch Wash Culture and Gram StainProtected Alveolar Lavage (02/23/2025 12:00 AM EDT) Pathologist [facility] Culture [id number] CFU/mL Mixed upper respiratory jesus(A) 02/24/2025 12:09 PM EDT [facility] Comment:The organism value f or this result has been updated. These results have been appended to the previously preliminary verified report. Gram Stain Result Numerous Polymorphonuclear leukocytes(A) 02/24/2025 12:09 PM EDT [facility] Gram Stain Result Numerous Gram positive cocci in pairs(A) 02/24/2025 12:09 PM EDT [facility] Gram Stain Result Moderate Gram positive cocci in clusters(A) 02/24/2025 12:09 PM EDT [facility] Gram Stain Result Moderate Gram positive rods(A) 02/24/2025 12:09 PM EDT [facility] Protected Alveolar Lavage (Protected Alveolar Lavage) 02/23/2025 12:00 AM EDT 02/23/2025 1:17 AM EDT Daniel Ralph MD LAB MICROBIOLOGY - GENERAL O RDERABLES Final Result Performing Organization Address City/[facility] Co de Phone Number [facility] [address] [place] [address] * (ABNORMAL) N-Terminal Probnp (02/22/2025 10:03 PM EDT) Only the most recent of2 resultswithin the time period is included. N-Terminal, PROBNP, Plasma 1,542(H) 0 - 899 pg/mL 02/22/2025 10:48 PM EDT [facility] Blood Venous blood specimen / Unknown Venipuncture / Unknown 02/22/2025 10:03 PM EDT 02/22/2025 10:11 PM EDT Bobby Parra MD LAB BLOOD ORDERABLES Final R esult Performing Organization Address [facility] [place] [address] * Maira auris Surveillance by PCR (02/22/2025 10:02 PM EDT) Maira auris PCR Result Not Detected Not Detected 02/24/2025 7:03 AM EDT [facility] Swab (Axilla and Groin) Non-blood Collection / Unknown 02/22/2025 10:02 PM EDT 02/22/2025 10:16 PM EDT Narrative [facility] - 02/24/2025 7:03 AM EDT This PCR assay was developed and its performance characteristics determined by [facility] as appropriate for clinical purposes. This assay has not been cleared or approved by the FDA, but is performed in a CLIA regulated laboratory that is qualified to perform high-complexity testing. Bobby Parra MD LAB MICROBIOLOGY - GENERAL O RDERABLES Final Result Performing Organization Address City/[facility]/ZIP Co de Phone Number [facility] [address] [place] [address] * (ABNORMAL) Multi Drug Resistance Test (02/22/2025 10:02 PM EDT) Culture Methicillin-Resist ant Staphylococcus aureus(AA) 02/24/2025 6:58 AM EDT [facility] Swab (Nares and Samantha Rectal) Non-blood Collection / Unknown 02/22/2025 10:02 PM EDT 02/22/2025 10:16 PM EDT Narrative [facility] - 02/24/2025 6:58 AM EDT This test was developed and its performance characteristics determined by the [facility]. Although the media is FDA-approved, it is not FDA-approved for all specimen types submitted. The FDA has determined that such clearance or approval is not necessary. This test is used for surveillance purposes. It should not be regarded as investigational or for research. The [facility] is certified under the Clinical Laboratory Improvement Amendments of 1988 (CLIA-88) as qualified to perform high complexity clinical laboratory testing. Bobby Parra MD LAB MICROBIOLOGY - GENERAL O RDERABLES Final Result Performing Organization Address City/[facility] Co de Phone Number [facility] [address] [place] [address] * Drug abuse screen (02/22/2025 10:01 PM EDT) Amphetamine Screen Urine Negative Cutoff: 500 ng/mL 02/23/2025 12:22 AM EDT [facility] Benzodiazepines Screen Urine Negative Cutoff: 200 ng/mL 02/23/2025 12:22 AM EDT [facility] Cannabinoid Screen Urine Negative Cutoff: 50 ng/mL 02/23/2025 12:22 AM EDT [facility] Cocaine Screen Urine Negative Cutoff: 300 ng/mL 02/23/2025 12:22 AM EDT [facility] Barbiturate Screen Urine Negative Cutoff: 200 ng/mL 02/23/2025 12:22 AM EDT [facility] Opiate Screen Urine Negative Cutoff: 300 ng/mL 02/23/2025 12:22 AM EDT [facility] Methadone Screen Urine Negative Cutoff: 300 ng/mL 02/23/2025 12:22 AM EDT [facility] Buprenorphine Screen Urine Negative Cutoff: 10 ng/mL 02/23/2025 12:22 AM EDT [facility] Fentanyl Screen Urine Presumptive positive. Confirmation by LC-MS/MS to follow. Cutoff: 1 ng/mL 02/23/2025 12:22 AM EDT [facility] Oxycodone Screen Urine Negative Cutoff: 100 ng/mL 02/23/2025 12:22 AM EDT [facility] Urine Urine specimen obtained by clean catch procedure / Unknown Non-blood Collection / Unknown 02/22/2025 10:01 PM EDT 02/22/2025 10:11 PM EDT Daniel Gordillo MD LAB URINE ORDERABLES Final Result Performing Organization Address City/State/[facility] Co de Phone Number [facility] [address] [place] [address] * (ABNORMAL) Fentanyl Urine Confirm (02/22/2025 10:01 PM EDT) Fentanyl 1(H) <1 ng/mL 02/24/2025 9:18 AM EDT [facility] Norfentanyl 2(H) <2 ng/mL 02/24/2025 9:18 AM EDT [facility] Urine Urine specimen obtained by clean catch procedure / Unknown Non-blood Collection / Unknown 02/22/2025 10:01 PM EDT 02/22/2025 10:11 PM EDT Narrative [facility] - 02/24/2025 9:18 AM EDT Drug analysis is confirmed by LC-MS/MS (LC Tandem Mass Spectrometry) on Urine specimens. This test was developed and its performance characteristics determined by [facility] [facility]. It has not been cleared or approved by the FDA. The laboratory is regulated under CLIA as qualified to perform high-complexity testing. This test is used for clinical purposes. Testing is performed at the [facility], Special Chemistry Laboratory. Daniel Gordillo MD LAB URINE ORDERABLES Final Result [facility] [address] [place] [address] * (ABNORMAL) POCT arterial blood gas gem (02/22/2025 9:05 PM EDT) pH, Arterial 7.45(H) 7.31 - 7.42 02/22/2025 9:06 PM EDT [facility] pCO2, Arterial 37 35 - 48 mm Hg 02/22/2025 9:06 PM EDT [facility] pO2, Arterial 86 >80 mm Hg 02/22/2025 9:06 PM EDT [facility] SO2, Arterial 98 94 - 98 % 02/22/2025 9:06 PM EDT [facility] FIO2 60.0 % 02/22/2025 9:06 PM EDT [facility] Base Excess, Arterial 1.7 -2 - 3 mmol/L 02/22/2025 9:06 PM EDT [facility] HCO3, Arterial 25.7 22 - 26 mmol/L 02/22/2025 9:06 PM EDT [facility] Total Hemoglobin, Arterial, Whole Blood 9.1(L) 11.2 - 15.7 g/dL 02/22/2025 9:06 PM EDT [facility] Hematocrit, Arterial 27.0(L) 34.0 - 45.0 % 02/22/2025 9:06 PM EDT [facility] Sodium, Arterial 125(L) 136 - 145 mmol/L 02/22/2025 9:06 PM EDT [facility] Potassium, Arterial 4.9 3.6 - 4.9 mmol/L 02/22/2025 9:06 PM EDT [facility] Comment:Hemolyzed, result ma y be falsely increased. Chloride, Whole Blood 95(L) 97 - 107 mmol/L 02/22/2025 9:06 PM EDT [facility] Glucose, Arterial 116(H) 74 - 99 mg/dL 02/22/2025 9:06 PM EDT [facility] Ionized Calcium, Arterial 4.8 4.6 - 5.1 mg/dL 02/22/2025 9:06 PM EDT [facility] Lactate, Arterial 0.8 0.5 - 1.6 mmol/L 02/22/2025 9:06 PM EDT [facility] Body Temperature 37.0 Celsius 02/22/2025 9:06 PM EDT [facility] pH, Temp Corrected, Arterial 7.45(H) 7.31 - 7.42 02/22/2025 9:06 PM EDT [facility] pCO2, Temp Corrected, Arterial 37 35 - 48 mm Hg 02/22/2025 9:06 PM EDT [facility] pO2, Temp Corrected, Arterial 86 >80 mm Hg 02/22/2025 9:06 PM EDT [facility] Labor/Excavator ID Slim Morton 02/22/2025 9:06 PM EDT [facility] Blood, Arterial Whole blood specimen / Unknown 02/22/2025 9:05 PM EDT 02/22/2025 9:06 PM EDT Daniel Ralph MD LAB POINT OF CARE TE ST DOCKED DEVICE UNSOLICITED RESULTS Final Result Performing Organization Address City/[facility]/ZIP Co de Phone Number [facility] [address] [place] [address] * Blood Culture (Aerobic/Anaerobet Set) (02/22/2025 8:55 PM EDT) Pathologist [facility] Culture No growth at day 5 02/27/2025 10:01 PM EDT [facility] Blood Structure of right hand / Unknown Venipuncture / Unknown 02/22/2025 8:55 PM EDT 02/22/2025 9:29 PM EDT Narrative [facility] - 02/27/2025 10:01 PM EDT Low blood volume submitted, results may be compromised us Daniel Gordillo MD LAB MICROBIOLOGY - GENERAL ORDERABLES Final Result [facility] [address] [place] [address] * Ionized calcium, serum (02/22/2025 8:36 PM EDT) Ionized Calcium, Serum 4.8 4.6 - 5.3 mg/dL LAB HEMATOLOGY METHOD 02/22/2025 9:42 PM EDT [facility] Blood Venous blood specimen / Unknown Venipuncture / Unknown 02/22/2025 8:36 PM EDT 02/22/2025 8:53 PM EDT Bobby Parra MD LAB BLOOD ORDERABLES Final R esult [facility] [address] [place] [address] * XR Chest 1 View (02/22/2025 7:05 [...] Ethyl Alcohol Plasma (02/22/2025 6:41 PM EDT) [facility] Ethanol Plasma <10 <10 mg/dL 02/22/2025 8:13 PM EDT [facility] Blood Venous blood specimen / Unknown Venipuncture / Unknown 02/22/2025 6:41 PM EDT 02/22/2025 8:00 PM EDT Narrative [facility] - 02/22/2025 8:13 PM EDT Enzymatic Assay: Performed on [employer]ufus. Daniel Gordillo MD LAB BLOOD ORDERABLES Final Result [facility] [address] [place] [address] * Thyroid Stimulating Hormone, Plasma (02/22/2025 6:41 PM EDT) Thyroid Stimulating Hormone, Plasma 1.03 0.40 - 4.20 uIU/mL 02/22/2025 7:24 PM EDT [facility] Blood Venous blood specimen / Unknown Venipuncture / Unknown 02/22/2025 6:41 PM EDT 02/22/2025 6:47 PM EDT Daniel Gordillo MD LAB BLOOD ORDERABLES Final Result Performing Organization Address [facility] Co de Phone Number [facility] [address] [place] [address] * Free T4, Plasma (02/22/2025 6:41 PM EDT) Free T4, Plasma 1.3 0.8 - 1.7 ng/dL 02/22/2025 7:24 PM EDT [facility] Blood Venous blood specimen / Unknown Venipuncture / Unknown 02/22/2025 6:41 PM EDT 02/22/2025 6:47 PM EDT Daniel Gordillo MD LAB BLOOD ORDERABLES Final Result Performing Organization Address [facility] [place] [address] * (ABNORMAL) Hemoglobin A1c (02/22/2025 6:41 PM EDT) Hemoglobin A1c 9.2(H) <5.7 % 02/23/2025 1:40 PM EDT [facility] Blood Venous blood specimen / Unknown Venipuncture / Unknown 02/22/2025 6:41 PM EDT 02/22/2025 6:47 PM EDT Narrative [facility] - 02/23/2025 1:40 PM EDT HA1C Interpretive Data: Diagnosis of Diabetes: Diabetic > or = 6.5% Pre-diabetic 5.7 to 6.4% Non-diabetic < or = 5.6% Glycemic Targets for Type I and Type II Diabetics: Non- Adults <7.0% Adults <6.0% Children and Adolescents <7.5% Source: [place] [employer]. Standards of medical care in diabetes,2017. Diabetes Care.2017:40 (suppl 1):S1-S135. us Bobby Parra MD LAB BLOOD ORDERABLES Final R esult [facility] [facility] [address] [place] [address] * (ABNORMAL) POCT venous blood gas gem (02/22/2025 6:37 PM EDT) pH, Venous 7.28(L) 7.32 - 7.43 02/22/2025 6:38 PM EDT [facility] pCO2, Venous 60(HH) 37 - 52 mm Hg 02/22/2025 6:38 PM EDT [facility] pO2, Venous 41(H) 25 - 40 mm Hg 02/22/2025 6:38 PM EDT [facility] SO2, Venous 72 65 - 80 % 02/22/2025 6:38 PM EDT [facility] Base Excess/Deficit, Venous 0.8 -2 - 3 mmol/L 02/22/2025 6:38 PM EDT [facility] HCO3, Venous 28.2(H) 22 - 26 mmol/L 02/22/2025 6:38 PM EDT [facility] Hemoglobin, Venous 9.2(L) 11.2 - 15.7 g/dL 02/22/2025 6:38 PM EDT [facility] Hematocrit, Venous 28.0(L) 34.0 - 45.0 % 02/22/2025 6:38 PM EDT [facility] Sodium, Venous 126(L) 136 - 145 mmol/L 02/22/2025 6:38 PM EDT [facility] Potassium, Venous 4.6 3.6 - 4.9 mmol/L 02/22/2025 6:38 PM EDT [facility] Comment:Hemolyzed, result ma y be falsely increased. POCT Chloride, Venous 94(L) 97 - 107 mmol/L 02/22/2025 6:38 PM EDT [facility] Glucose, Venous 139(H) 74 - 99 mg/dL 02/22/2025 6:38 PM EDT [facility] Ionized Calcium, Venous 4.9 4.6 - 5.1 mg/dL 02/22/2025 6:38 PM EDT [facility] Lactate, Venous 0.6 0.5 - 2.2 mmol/L 02/22/2025 6:38 PM EDT [facility] Body Temperature 37.0 Celsius 02/22/2025 6:38 PM EDT [facility] pH, Temp Corrected, Venous 7.28(L) 7.32 - 7.43 02/22/2025 6:38 PM EDT [facility] pCO2, Temp Corrected, Venous 60(HH) 37 - 52 mm Hg 02/22/2025 6:38 PM EDT [facility] pO2, Temp Corrected, Venous 41(H) 25 - 40 mm Hg 02/22/2025 6:38 PM EDT [facility] Labor/Excavator ID Joao Jackson 02/22/2025 6:38 PM EDT [facility] Blood, Venous Whole blood specimen / Unknown 02/22/2025 6:37 PM EDT 02/22/2025 6:38 PM EDT us Generic Provider Poct LAB POINT OF CARE TEST DOCKED DEVICE UNSOLICITED RESULTS Final Result Performing Organization Address City/State/[facility] Co de Phone Number [facility] [address] [place] [address] * INTUBATION (02/22/2025 6:13 PM EDT) Narrative [...] MICROBIOLOGY - GENERAL O RDERABLES Final Result [facility] [address] [place] [address] * SC AN ELECTIVE ENDOTRACHEAL AIRWAY, PB ANESTHESIA PLACEHOLDER (01/31/2025 9:58 AM EDT) Narrative Migue Seay CRNA - 01/31/2025 9:58 AM EDT Migue Seay CRNA 01/31/2025 10:45 AM Airway Date/Time: 01/31/2025 9:58 AM Reason: elective Airway not difficult General Information and Staff Patient location during procedure: OR BUSINESS OPERATIONS MANAGER: Migue Seay CRNA Performed: BUSINESS OPERATIONS MANAGER Patient Condition Indications for airway management: anesthesia [...] following split bolus administration of IV contrast, [id number], 150 mL. Reformatted images in the coronal [...] MD on 01/03/2025 3:33 PM Cayla Erazo SENIOR JAVA SOFTWARE ENGINEER, DNP IMG CT PROCEDURES Final Result * Hepatitis C Antibody - ED (08/15/2024 5:35 AM EST) Hepatitis C Antibody Negative Negative 08/15/2024 7:08 AM EST [facility] Blood Venous blood specimen / Unknown Venipuncture / Unknown 08/15/2024 5:35 AM EST 08/15/2024 6:06 AM EST Marcy Zhong MD LAB BLOOD ORDERABLES Final Resu lt [facility] [address] [place] [address] * Cytology (04/10/2013 12:00 AM EDT) Specimen from axilla structure obtained by fine needle aspiration biopsy (specimen) 04/10/2013 04/10/2013 2:2 3 PM EDT Narrative SUNQUEST - 04/10/2013 3:59 PM EDT [facility] MR #: [id number] [facility] E[place]EN [place], [place] [address] 1960 (Age: 52) FW Collect Date: 04/10/2013 00:00 Receipt Date: 04/10/2013 14:23 Page 1 DEPARTMENT OF PATHOLOGY AND LABORATORY MEDICINE CYTOPATHOLOGY REPORT Email: [email or web address] ATTENDING MD/Practitioner: Kimmie Aguilera MD Service: BCC [...] 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 Jonatan [...] RECEPTOR POSITIVE STATUS (ER POSITIVE) F: A; 94081 ASP INTER, 04969, 27250 SNOMED CODES: A; B24685 I79113 R09742 [id number] G57339 NC9826 P1149 [id number] A resident has participated in this service. A pathologist has performed and is responsible for the reported pathologic evaluation. 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 Yes Care Teams Human Resources Training Manager Relationship Specialty Start Date End Date Vignesh Pickens MD [address] [place] [address] PCP - General 12/31/24 Cayla Erazo, SENIOR JAVA SOFTWARE ENGINEER, DNP [address] [place] [address] Nurse Practitioner Urology 12/20/24
--- OUTSIDE RECORDS SUMMARY | 2025-04-03 11:08 | XMS_ITS | Clinical Summary ---
Author Organization [facility] ([place], [place], [place], [place]) Address [address] [place] [address] Care Team Providers Care Architectural Sales Consultant Name Role Phone [facility], Provider Not In The System MD [...] Do you speak a language other than Malagasy at ho me? No 12/09/2023 Do you [...] A1C 11.7 % 11/25/2023 5:31 PM EDT [facility] Comment: Hemoglobin A1C levels are related to mean glucose during the preceding 2-3 months. Less than 7% demonstrates glycemic control in diabetic patients. Hemoglobin AlC % Suggested Diagnosis > or = 6.5 Diabetic 5.7 - 6.4 Prediabetic <5.7 Non-diabetic eAVG Glucose 289.09 mg/dL 11/25/2023 5:31 PM EDT [facility] Blood Venipuncture / Unknown 11/25/2023 11:24 AM EDT 11/25/2023 1:46 PM EDT us Radha Ram MD LAB BLOOD ORDERABLES Fi nal Result [facility] [address] [phone] from Last 3 Months or Most Recently Relevant to Health Maintenance Insurance [facility] [place] [id number] MEDICARE PART A B [place]ICAID [place] Advance Directives For more information, please contact: [phone] * Full Code (Latest Code Status on [...] Name Relationship Healthcare Agent Relationshi p Communication Pauline Dante Sister First Alternate Healthcare Decision-Maker Care Teams Architectural Sales Consultant Relationship Specialty Start Date End Date [facility], Provider Not In The System, [place] [address] PCP - General 10/05/23
--- OUTSIDE RECORDS SUMMARY | 2025-04-03 11:08 | XMS_ITS | Encounter Summary ---
Author Organization [facility] Address [address] [place] [address] Care Team Providers Care Band Top Maker Name Role Phone Daniel Barba MD Primary Care Provider [phone] Judy Huff SALES EXEC Unavailable Unavailabl Cayla Louie APRN, [place] Unavailable [phone] Vignesh Pickens MD Primary Care Provider + [phone] Encounter Details Date Type Department Care Team (Late st Contact Info) Description 07/28/2022 Orders Only External Location [address] [place] [address] Gregg Morgan MD [address] [place] [address] Social History Tobacco Use Types [...] Description 04/08/2025 9:20 AM EDT Office Visit [facility] [address], [address] [place] [address] Cayla Erazo APRN, DNP [address] [place] [address] 05/16/2025 8:00 AM EDT Office Visit [facility] [place] [address] [facility], [address] [place] [address] Karly Gracia MD [address] [place] [address] 06/07/2025 1:00 PM EDT Office Visit [facility] [address] [place] [address] Tom Iraheta MD [address] [place] [address] documented as of this encounter [...] as of this encounter Care Teams Band Top Maker Relationship Specialty Start Date End Date Daniel Barba MD [address] [place] [address] PCP - General 01/02/21 12/30/24 Vignesh Pickens MD [address] [place] [address] PCP - General 12/31/24 Judy Huff, JHONNY [facility] TCM Nurse 08/24/24 08/24/24 Cayla Erazo, LIZANDRO, [place] [address] [place] [address] Nurse Practitioner Urology 12/20/24 documented as of this encounter
--- OUTSIDE RECORDS SUMMARY | 2025-04-03 11:08 | XMS_ITS | Encounter Summary ---
Author Organization [facility] Address [address] [place] [address] Care Team Providers Care Passenger Agent Name Role Phone Cayla Erazo APRN, DNP Unavailable [phone] Vignesh Pickens MD Primary Care Provider [phone] Encounter Details Date Type Department Care Team (Late st Contact Info) Description 03/27/2025 Telephone [facility] [address] [place] [address] Doug Chapman MD [address] [place] [address] Social History Tobacco Use Types [...] drink first t rodríguez in the morning (EYE-LIBRARY MEDIA TECHNICIAN) to steady your nerves or to [...] Concern/Question Reason for Call: LIZANDRO López from [facility] calling to let you know that patient is being admitted with UTI after failed treatment They did a CT scan in ER and it showed bilat hydronephrosis with thickening of urinary bladder/ with retroperitoneal adenopathy underlying neoplasm not excluded. Recommend cysto. Best contact number: Other: [phone] ext [phone] Optimal time of day to [...] will receive notification of the communication/outcome via Thuuz. documented in this encounter Plan of Treatment Upcoming Encounters Date Type Department Care Team (Late st Contact Info) Description 04/08/2025 9:20 AM EDT Office Visit [facility] [address] [place] [address] Cayla Erazo, LIZANDRO, DNP [address] [place] [address] 05/16/2025 8:00 AM EDT Office Visit [facility] [place] [address] [facility], [address] [place] [address] Karly Gracia MD [address] [place] [address] 06/07/2025 1:00 PM EDT Office Visit [facility] [address] [place] [address] Tom Iraheta MD [address] [place] [address] documented as of this encounter [...] documented as of this encounter Care Teams Passenger Agent Relationship Specialty Start Date End Date Vignesh Pickens MD [address] [place] [address] PCP - General 12/31/24 Cayla Erazo APRN, DNP [address] [facility] [address] [place] [address] Nurse Practitioner Urology 12/20/24 documented as of this encounter
--- OUTSIDE RECORDS SUMMARY | 2025-04-03 11:08 | XMS_ITS | Clinical Summary ---
Author Organization [facility] Address [address] [place] [address] Phone Care Team Providers Care Digital Media Director Name Role Phone Foreign Spangler MD, Andrei Salem Primary Care Provid er Allergies No known [...] [place] A [place] B [place] [id number] Care Teams Digital Media Director Relationship Specialty Start Date End Date Andrei Carrasquillo Sr., MD [address] [place] [address] PCP - General Veterinary Toxicologist 03/17/16
--- OUTSIDE RECORDS SUMMARY | 2025-04-03 11:09 | XMS_ITS | Encounter Summary ---
Author Organization [facility] Address [address] [place] [address] Care Team Providers Care Inspector Machine Cut Glass Name Role Phone Cayla Erazo APRN, DNP Unavailable [phone] Vignesh Pickens MD Primary Care Provider [phone] Encounter Details Date Type Department Care Team [...] drink first t rodríguez in the morning (EYE-CHILD WELFARE CONSULTANT) to steady your nerves or to [...] Description 04/08/2025 9:20 AM EDT Office Visit [facility] [address] [place] [address] Cayla Erazo, MECHANICAL SUPERVISOR, DNP [address] [place] [address] 05/16/2025 8:00 AM EDT [facility] [place] [address] [facility], [address] [place] [address] Karly Gracia MD [address] [place] [address] 06/07/2025 1:00 PM EDT Office Visit [facility] [address] [place] [address] Tom Iraheta MD [address] [place] [address] documented as of this encounter [...] documented as of this encounter Care Teams Inspector Machine Cut Glass Relationship Specialty Start Date End Date Vignesh Pickens MD [address] [place] [address] PCP - General 12/31/24 Cayla Erazo APRN, FRED[place] [address] [facility] [address] [place] [address] Nurse Practitioner Urology 12/20/24 documented as of this encounter
--- OUTSIDE RECORDS SUMMARY | 2025-04-03 11:09 | XMS_ITS | Encounter Summary ---
Author Organization [facility] Address [address] [place] [address] Care Team Providers Care Secondary English Teacher Name Role Phone Cayla Erazo APRN, DNP Unavailable [phone] Vignesh Pickens MD Primary Care Provider [phone] Encounter Details Date Type Department Care Team (Late st Contact Info) Description 02/22/2025 Orders Only External Location [address] [place] [address] Jordan Carl MD [address] [place] [address] Social History Tobacco Use Types [...] drink first t rodríguez in the morning (EYE-SERVICE LIAISON REPRESENTATIVE) to steady your nerves or to [...] No 02/26/2025 8:00 AM EDT Bassem Jay, JIMI 2. Non-Specific Active Suici annie Thoughts (Past 1 Month) No 02/26/2025 8:00 AM EDT Harry Jay RN 6. Suicidal Behavior (Lifetime) No 8:00 AM EDT Bassem Jay RN documented as of this encounter Plan of Treatment Upcoming Encounters Date Type Department Care Team (Late st Contact Info) Description 04/08/2025 9:20 AM EDT [facility] [address] [place] [address] Cayla Erazo, ORTHOPEDIC SHOES SALESPERSON, DNP [address] [facility] [address] [place] [address] 05/16/2025 8:00 AM EDT Office Visit [facility] [place] [address] [facility], [address] [place] [address] Karly Gracia MD [address] [place] [address] 06/07/2025 1:00 PM EDT Office Visit [facility] [address] [place] [address] Tom Iraheta MD [address] [place] [address] documented as of this encounter [...] documented as of this encounter Care Teams Secondary English Teacher Relationship Specialty Start Date End Date Vignesh Pickens MD [address] [place] [address] PCP - General 12/31/24 Cayla Erazo APRN, DNP [address] [place] [address] Nurse Practitioner Urology 12/20/24 documented as of this encounter
--- OUTSIDE RECORDS SUMMARY | 2025-04-03 11:09 | XMS_ITS | Encounter Summary ---
Author Organization [facility] Address [address] [place] [address] Care Team Providers Care Coat Fitter Name Role Phone Cayla Erazo APRN, DNP Unavailable [phone] Vignesh Pickens MD Primary Care Provider [phone] Encounter Details Date Type Department Care Team [...] drink first t rodríguez in the morning (EYE-PLYWOOD FACTORY WORKER) to steady your nerves or to [...] Description 04/08/2025 9:20 AM EDT Office Visit [facility] [address] [place] [address] Cayla Erazo, DIGITAL SALES MANAGER, DNP [address] [place] [address] 05/16/2025 8:00 AM EDT Office Visit [facility] [place] [address] [facility], [address] [place] [address] Karly Gracia MD [address] [place] [address] 06/07/2025 1:00 PM EDT Office Visit [facility] [address] [facility] [address] [place] [address] Tom Iraheta MD [address] [place] [address] documented as of this encounter [...] as of this encounter Care Teams Coat Fitter Relationship Specialty Start Date End Date Vignesh Pickens MD [address] [place] [address] PCP - General 12/31/24 Cayla Erazo APRN, FREDERICK [address] [place] [address] Nurse Practitioner Urology 12/20/24 documented as of this encounter
--- OUTSIDE RECORDS SUMMARY | 2025-04-03 11:09 | XMS_ITS | Encounter Summary ---
Author Organization [facility] Address [address] [place] [address] Care Team Providers Care Copy Worker Name Role Phone Cayla Erazo APRN, DNP Unavailable [phone] Vignesh Pickens MD Primary Care Provider [phone] Encounter Details Date Type Department Care Team (Late st Contact Info) Description 02/22/2025 Orders Only External Location [address] [place] [address] Jordan Carl MD [address] [place] [address] Social History Tobacco Use Types [...] drink first t rodríguez in the morning (EYE-AUTOMATIC EDGER) to steady your nerves or to get [...] Description 04/08/2025 9:20 AM EDT Office Visit [facility] [address] [place] [address] Cayla Erazo, IMPLEMENTATION ANALYST, DNP [address] [facility] [address] [place] [address] 05/16/2025 8:00 AM EDT Office Visit [facility] [place] [address] [facility], [address] [place] [address] Karly Gracia MD [address] [place] [address] 06/07/2025 1:00 PM EDT Office Visit [facility] [address] [place] [address] Tom Iraheta MD [address] [place] [address] documented as of this encounter [...] documented as of this encounter Care Teams Copy Worker Relationship Specialty Start Date End Date Vignesh Pickens MD [address] [place] [address] PCP - General 12/31/24 Cayla Erazo APRN, DNP [address] [place] [address] Nurse Practitioner Urology 12/20/24 documented as of this encounter
--- OUTSIDE RECORDS SUMMARY | 2025-04-03 11:09 | XMS_ITS | Encounter Summary ---
Author Organization [facility] Address [address] [place] [address] Care Team Providers Care Computer Console Operator Name Role Phone Cayla Erazo APRN, DNP Unavailable [phone] Vignesh Pickens MD Primary Care Provider [phone] Encounter Details Date Type Department Care Team [...] drink first t rodríguez in the morning (EYE-MRI TECHNOLOGIST) to steady your nerves or to get [...] Description 04/08/2025 9:20 AM EDT Office Visit [facility] [address] [place] [address] Cayla Erazo APRN, DNP [address] [place] [address] 05/16/2025 8:00 AM EDT Office Visit [facility] [place] [address] [facility], [address] [place] [address] Karly Gracia MD [address] [place] [address] 06/07/2025 1:00 PM EDT Office Visit [facility] [address] [facility] [address] [place] [address] Tom Iraheta MD [address] [place] [address] documented as of this encounter [...] as of this encounter Care Teams Computer Console Operator Relationship Specialty Start Date End Date Vignesh Pickens MD [address] [place] [address] PCP - General 12/31/24 Cayla Erazo APRN, DNP [address] [place] [address] Nurse Practitioner Urology 12/20/24 documented as of this encounter
--- OUTSIDE RECORDS SUMMARY | 2025-04-03 11:09 | XMS_ITS | Encounter Summary ---
Author Organization [facility] Address [address] [place] [address] Care Team Providers Care Bankruptcy Paralegal Name Role Phone Daniel Barba MD Primary Care Provider [phone] Cayla Erazo APRN, [facility] Unavailable [phone] Vignesh Pickens MD Primary Care Provider [phone] Encounter Details Date Type Department Care Team (Late st Contact Info) Description 10/19/2024 Orders Only External Location [address] [place] [address] Provider, External Social History Tobacco Use Types [...] drink first t rodríguez in the morning (EYE-DENTAL MANAGER) to steady your nerves or to [...] Description 04/08/2025 9:20 AM EDT Office Visit [facility] [address] [place] [address] Cayla Erazo, ONCOLOGY RESEARCH RN, DNP [address] [place] [address] 05/16/2025 8:00 AM EDT Office Visit [facility] [place] [address] [facility] [place] [address] Karly Gracia MD [address] [place] [address] 06/07/2025 1:00 PM EDT Office Visit [facility] [address] [place] [address] Tom Iraheta MD [address] [place] [address] documented as of this encounter [...] documented as of this encounter Care Teams Bankruptcy Paralegal Relationship Specialty Start Date End Date Daniel Barba MD [address] [place] [address] PCP - General 01/02/21 12/30/24 Vignesh Pickens MD [address] [place] [address] PCP - General 12/31/24 Cayla Erazo APRN, FREDERICK [id number] [place] [address] Nurse Practitioner Urology 12/20/24 documented as of this encounter
--- OUTSIDE RECORDS SUMMARY | 2025-04-03 11:09 | XMS_ITS | Encounter Summary ---
Author Organization [facility] Address [address] [place] [address] Care Team Providers Care Campaign Associate Name Role Phone Cayla Erazo APRN, DNP Unavailable [phone] Vignesh Pickens MD Primary Care Provider [phone] Encounter Details Date Type Department Care Team [...] drink first t rodríguez in the morning (EYE-CREDIT AND COLLECTIONS ANALYST) to steady your nerves or to [...] Description 04/08/2025 9:20 AM EDT Office Visit [facility] [address] [place] [address] Cayla Erazo APRN, DNP [address] [address] 05/16/2025 8:00 AM EDT Office Visit [facility] [place] [address] [facility], [address] [place] [address] Karly Gracia MD [address] [place] [address] 06/07/2025 1:00 PM EDT Office Visit [facility] [address] [facility] [address] [place] [address] Tom Iraheta MD [address] [place] [address] documented as of this encounter [...] documented as of this encounter Care Teams Campaign Associate Relationship Specialty Start Date End Date Vignesh Pickens MD [address] [place] [address] PCP - General 12/31/24 Cayla Erazo APRN, FREDERICK [address] [facility] [place] [address] Nurse Practitioner Urology 12/20/24 documented as of this encounter
--- OUTSIDE RECORDS SUMMARY | 2025-04-03 11:09 | XMS_ITS | Encounter Summary ---
Author Organization [facility] Address [address] [place] [address] Care Team Providers Care Bit Sharpener Operator Name Role Phone Cayla Erazo APRN, DNP Unavailable [phone] Vignesh Pickens MD Primary Care Provider [phone] Encounter Details Date Type Department Care Team (Late st Contact Info) Description 02/22/2025 Orders Only External Location [address] [place] [address] Jordan Carl MD [address] [place] [address] Social History Tobacco Use Types [...] drink first t rodríguez in the morning (EYE-DONOR SERVICES COORDINATOR) to steady your nerves or to [...] Description 04/08/2025 9:20 AM EDT Office Visit [facility] [address], [address] [place] [address] Cayla Erazo, BREAKDOWN WORKER, DNP [address] [facility] [address] [place] [address] 05/16/2025 8:00 AM EDT Office Visit [facility] [address] [facility], [address] [place] [address] Karly Gracia MD [address] [place] [address] 06/07/2025 1:00 PM EDT Office Visit [facility] [address] [place] [address] Tom Iraheta MD [address] [place] [address] documented as of this encounter [...] documented as of this encounter Care Teams Bit Sharpener Operator Relationship Specialty Start Date End Date Vignesh Pickens MD [address] [place] [address] PCP - General 12/31/24 Cayla Erazo APRN, DNP [address] [place] [address] Nurse Practitioner Urology 12/20/24 documented as of this encounter
--- OUTSIDE RECORDS SUMMARY | 2025-04-03 11:09 | XMS_ITS | Encounter Summary ---
Author Organization [facility] Address [address] [place] [address] Care Team Providers Care Learning Support Teacher Name Role Phone Cayla Erazo APRN, DNP Unavailable Vignesh Pickens MD Primary Care Provider [phone] Encounter Details Date Type Department Care Team (Late st Contact Info) Description 02/22/2025 Orders Only External Location [address] [place] [address] Jordan Carl MD [address] [place] [address] Social History Tobacco Use Types [...] first t rodríguez in the morning (EYE-SUPERVISOR TELLERS) to steady your nerves or to get [...] Description 04/08/2025 9:20 AM EDT Office Visit [facility] [address] [place] [address] Cayla Erazo, SPORTS CLERK, DNP [address] [facility] [address] [place] [address] 05/16/2025 8:00 AM EDT Office Visit [facility] [place] [address] [facility], [address] [place] [address] Karly Gracia MD [address] [place] [address] 06/07/2025 1:00 PM EDT Office Visit [facility] [address] [place] [address] Tom Iraheta MD [address] [place] [address] documented as of this encounter [...] documented as of this encounter Care Teams Learning Support Teacher Relationship Specialty Start Date End Date Vignesh Pickens MD [address] [place] [address] PCP - General 12/31/24 Cayla Erazo APRN, DNP [address] [place] [address] Nurse Practitioner Urology 12/20/24 documented as of this encounter
--- OUTSIDE RECORDS SUMMARY | 2025-04-03 11:09 | XMS_ITS | Encounter Summary ---
Author Organization [facility] Address [address] [place] [address] Care Team Providers Care Pipe Line Inspector Name Role Phone Cayla Erazo APRN, FREDERICK Unavailable Vignesh Pickens MD Primary Care Provider [phone] Encounter Details Date Type Department Care Team (Late st Contact Info) Description 03/04/2025 Results Follow-Up [facility] Medicine Virtual Dept. [address] [place] [address] Madonna Singleton MD [address] [place] [id number] Social History Tobacco Use Types Packs/Day Years [...] drink first t rodríguez in the morning (EYE-GENERAL LABOR FORKLIFT OPERATOR) to steady your nerves or to [...] Office Visit [facility] [address] [place] [address] Cayla Erzao, SOFTWARE WRITER, DNP [address] [place] [address] 05/16/2025 8:00 AM EDT Office Visit [facility] [place] [address] [facility], [address] [place] [address] Karly Gracia MD [address] [place] [address] 06/07/2025 1:00 PM EDT Office Visit [facility] [address] [place] [address] Tom Iraheta MD [address] [place] [address] documented as of this encounter Visit Diagnoses [...] documented as of this encounter Care Teams Pipe Line Inspector Relationship Specialty Start Date End Date Vignesh Pickens MD [address] [place] [address] PCP - General 12/31/24 Cayla Erazo APRN, DNP [address] [place] [address] Nurse Practitioner Urology 12/20/24 documented as of this encounter
--- OUTSIDE RECORDS SUMMARY | 2025-04-03 11:09 | XMS_ITS | Referral Summary ---
Author Organization [facility] ([place], [place], [place], [place]) Address [address] [place] [address] Care Team Providers Care Rail Maintenance Worker Name Role Phone [facility], Provider Not In The System MD [...] Do you speak a language other than Syriac at ho me? No 12/09/2023 Do you [...] A1C 11.7 % 11/25/2023 5:31 PM EDT [facility] Comment: Hemoglobin A1C levels are related to mean glucose during the preceding 2-3 months. Less than 7% demonstrates glycemic control in diabetic patients. Hemoglobin AlC % Suggested Diagnosis > or = 6.5 Diabetic 5.7 - 6.4 Prediabetic <5.7 Non-diabetic eAVG Glucose 289.09 mg/dL 11/25/2023 5:31 PM EDT [facility] Blood Venipuncture / Unknown 11/25/2023 11:24 AM EDT 11/25/2023 1:46 PM EDT Radha Ram MD LAB BLOOD ORDERABLES Fi nal Result [facility] [address] [place] [address], [facility] [phone] from Last 3 Months or Most Recently Relevant to Health Maintenance Insurance MEDICARE PART A B MEDICAID OF [place] Advance Directives For more information, please contact: [phone] * Full Code (Latest Code Status on [...] Sister First Alternate Healthcare Decision-Maker Care Teams Rail Maintenance Worker Relationship Specialty Start Date End Date [facility], Provider Not In The System, [place] [address] PCP - General 10/05/23
--- OUTSIDE RECORDS SUMMARY | 2025-04-03 11:09 | XMS_ITS | Encounter Summary ---
Author Organization [facility] Address [address] [place] [address] Care Team Providers Care Detention Deputy Name Role Phone Cayla Erazo APRN, DNP Unavailable [phone] Vignesh Pickens MD Primary Care Provider [phone] Encounter Details Date Type Department Care Team [...] any time in the past 12 m [facility], were you homeless or living [...] drink first t rodríguez in the morning (EYE-HOSPICE PLAN ADMINISTRATOR) to steady your nerves or to [...] Description 04/08/2025 9:20 AM EDT Office Visit [facility] [address] [place] [address] Cayla Erazo, BOARD MACHINE SET UP OPERATOR, DNP [address] [place] [address] 05/16/2025 8:00 AM EDT Office Visit [facility] [place] [address] [facility], [address] [place] [address] Karly Gracia MD [address] [place] [address] 06/07/2025 1:00 PM EDT Office Visit [facility] [address] [facility] [facility] [address] [place] [address] Tom Iraheta MD [address] [place] [address] documented as of this encounter [...] documented as of this encounter Care Teams Detention Deputy Relationship Specialty Start Date End Date Vignesh Pickens MD [address] [place] [address] PCP - General 12/31/24 Cayla Erazo APRN, FREDERICK [address] [place] [address] Nurse Practitioner Urology 12/20/24 documented as of this encounter
--- OUTSIDE RECORDS SUMMARY | 2025-04-03 11:10 | XMS_ITS | Encounter Summary ---
Author Organization [facility] Address [address] [place] [address] Care Team Providers Care Certified Retinal Angiographer Name Role Phone Cayla Erazo APRN, DNP Unavailable [phone] Vignesh Pickens MD Primary Care Provider [phone] Encounter Details Date Type Department Care Team (Late st Contact Info) Description 03/01/2025 Telephone [facility] director counseling bureau Clinic [address] [address] Dental, Surgeon, [address] [place] [address] Social History Tobacco Use Types Packs/Day Years [...] drink first t rodríguez in the morning (EYE-MAMMOGRAPHY SUPERVISOR) to steady your nerves or to [...] Office Visit [facility] [address] [place] [address] Cayla Erazo, ROOM SERVICE BELLHOP, DNP [address] [place] [address] 05/16/2025 8:00 AM EDT Office Visit [facility] [place] [facility] [address] [facility], [address] [place] [address] Karly Gracia MD [address] [place] [address] 06/07/2025 1:00 PM EDT Office Visit [facility] [address] [place] [address] Tom Iraheta MD [address] [place] [address] documented as of this encounter [...] documented as of this encounter Care Teams Certified Retinal Angiographer Relationship Specialty Start Date End Date Vignesh Pickens MD [address] [place] [address] PCP - General 12/31/24 Cayla Erazo APRN, FREDERICK [address] [place] [address] Nurse Practitioner Urology 12/20/24 documented as of this encounter
[2025-04-03 11:18] LABS: Hematocrit 27.7 % (37.0-47.0); Hemoglobin 8.6 g/dL (12.2-16.2); Immature Granulocytes % 0.4 %; Mean Corpuscular HGB Conc 31.0 g/dL (31.8-35.4); Mean Corpuscular Hemoglobin 26.2 pg (27.0-31.2); Mean Corpuscular Volume 84.5 fl (81-99); Nucleated Red Blood Cells % 0 %; Platelet Count 267 K/mm3 (142-424); Red Blood Count 3.28 M/mm3 (4.20-5.40); Red Cell Distribution Width-SD 50.0 fL; White Blood Count 5.3 K/mm3 (4.8-10.8)
== END ==
LOC: LAB.DROPOF 11:04
PROVIDERS: Visit Provider Family Medicine
CPT/HCPCS: 85025

== ENCOUNTER → 2025-04-04 10:36 | Outpatient (REF) | payer SELFPAY ==
--- OUTSIDE RECORDS SUMMARY | 2025-02-22 18:13 | XMS_ITS | Encounter Summary ---
Author Organization [facility] Address [address] [id number] Care Team Providers Care Railroad Crane Operator Name Role Phone Cayla Erazo APRN, DNP Unavailable Vignesh Pickens MD Primary Care Provider [phone] Reason for Visit * Reason Comments Altered Mental Status * Auth/Cert (Routine) Specialty Diagnoses / Procedures Referred By Contac t Referred To Contact Diagnoses Sepsis (CMS/HCC) UTI, CKD, Hyponatremia, COPD exacerbation Bobby Parra MD [address] [place] [address] Phone: tel: fax: PAV A Inpatient [address] [place] [address] Referral ID Status Reason Start Date Expiration Date Visits Re quested Visits Authorized [id number] 1 1 Encounter Details Date Type Department Care Team (Latest Contact Info) Description 02/22/2025 6:13 PM EDT - 03/02/2025 11:04 AM EDT Hospital Encounter PAV A Inpatient [address] [place] [id number] Luda Morton MD [address] [place] [address] Bobby Parra MD [address] [place] [address] Luda Ralph MD [address] [place] [address] Ludy Hill MD [address] [facility] [address] [place] [address] Madonna Singleton MD [address] [place] [address] Acute respiratory failure with hypoxia [...] organism (CMS/HCC); Chronic diastolic (congestive) heart failure ([facility]/HCC); Acquired absence of left lower extremity above [...] drink first t rodríguez in the morning (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) to steady your nerves or to [...] Needs: 3-Long Term Facility Current Outpatient/Agency/Support Group: [facility] Transportation Anticipated: ([facility]) other (see comments) Outpatient/Agency/Support Group Needs: [facility] facility Transportation Concerns: none Concerns to be Addressed: discharge planning Readmission Within the Last 30 Days: other (see comments) Patient/Family Anticipated Services at Transition: [facility] rehabilitation [facility] Patient/Family Anticipates Transition to: long-term [...] Care Transition Intervention: Promote Activity and Functional Cooper Flowsheets Taken 03/02/2025 08 by Gayle Light [...] EDT Patient discharged at approximately 1040 via [facility] wheelchair transport. Report called to JHONNY Hawkins at [facility] in [place]. All appropriate paperwork and personal belongings sent withpatient. * Lawanda [facility] - Gayle Light RN - 03/02/2025 9:03 AM EDT Images from the original note were not included. [id number] Sepsis Sepsis is a very serious condition. [...] (ICU). Last Reviewed Date: 2023 00:00:00 ?? 1134-4142 [employer]. All rights reserved. This information is not intended as a substitute for professional medical care. Always follow your healthcare professional's instructions. * Lawanda [facility] - Gayle Light RN - 03/02/2025 9:03 AM EDT Images from the original note were not included. [id number] Discharge Instructions for Acute Kidney Injury You [...] tiredness Last Reviewed Date: 2022 00:00:00 ?? 0338-9342 [employer]. All rights reserved. This information is not [...] Pickens MD [address] / [place] [address] Referring provider name and address: Jordan Carl MD [address] [place] [address] [place] [address] Chief Concern, Brief History of Present Illness, [...] negative infectious workup. She was extubated to [place] w/o complications on 02/24/25. Currently saturating well [...] OSH, 125 on arrival to [facility] - Serum osm wnl, urine [...] Your Medications These medications were sent to [facility] - Jeanette RENETTA Reid - [facility] 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 female CSN: [id number] Admission: 02/22/2025 6:13 PM Primary Problem: Sepsis [...] Chair transport scheduled today at 9am To: [facility] Report: [phone] Discharge Summary fax: [phone] Escribe new meds/controls to: [facility] will remain available through discharge if needs arise. Daniela Thomas ACID WASH OPERATOR, WARP KNITTER Wire Taper * Gayle De León RN - 03/02/2025 8:44 AM EDT Images from the original note were not included. [id number] Acute Kidney Injury: Care Instructions Overview Acute [...] this instruction, always ask your healthcare professional. [employer] disclaims any warranty or liability for your use of this information. ?? [id number] [email or web address], [employer]. * Lawanda Katerine - Gayle Light, RN - 03/02/2025 8:44 AM EDT Images from the original note were not included. 21497 Urinary Tract Infections in Women Urinary tract [...] started. Last Reviewed Date: 2023 00:00:00 ?? 4502-8666 [employer]. All rights reserved. This information is not [...] aseptic technique maintained Taken 02/24/20252002 by Daniela Mcbrdie RN Stabilization Measures: airway opened Taken 02/22/20252233 [...] Ongoing, Progressing * Care Plan - Aleyda oHlley RN - 03/01/2025 10:45 PM EDT Problem: [...] Needs: 3-Long Term Facility Current Outpatient/Agency/Support Group: [facility] Transportation Anticipated: ([facility]) other (see comments) Outpatient/Agency/Support Group Needs: [facility] facility Transportation Concerns: none Concerns to be Addressed: discharge planning Readmission Within the Last 30 Days: other (see comments) Patient/Family Anticipated Services at Transition: [facility] rehabilitation services Patient/Family Anticipates Transition to: long-term [...] Needs: 3-Long Term Facility Current Outpatient/Agency/Support Group: [facility] facility Transportation Anticipated: ([facility]) other (see comments) Outpatient/Agency/Support Group Needs: [facility] facility Transportation Concerns: none Concerns to be Addressed: discharge planning Readmission Within the Last 30 Days: other (see comments) Patient/Family Anticipated Services at Transition: [facility] rehabilitation [facility] Patient/Family Anticipates Transition to: long-term [...] Ongoing, Progressing Intervention: Promote Activity and Functional Cooper Flowsheets Taken 03/01/2025 0800 by Gayle Light [...] negative infectious workup. She was extubated to [place] w/o complications on 02/24/25. Currently saturating well [...] resumed home meds continue Mirabegron HFrEF 2/2 [facility] - 11/2024 LVEF 35-40% - [...] OSH, 125 on arrival to [facility] - Serum osm wnl, urine [...] meds today F: soft and bite sized, ORDER TAKERS SUPERVISOR eval Code Status: Assume Full Medically Ready for Discharge: * Progress Notes - Anthony Vaughn - 03/01/2025 9:27 AM EDT Case Management Discharge Note Eileen May 64 y.o. female CSN: [id number] Admission: 02/22/2025 6:13 PM Primary Problem: Sepsis (CMS/HCC) Primary Home Care Associate: Primary Caregiver: Private caregiver Assistance Available at Discharge: Current Outpatient/Agency/Support Group: [facility] Availability of Care Givers (#Hours): 24 hours Family/Home Care Associate(s) Willingness Assessed to care for patient at home: Yes Family/Home Care Associate(s) Readiness Assessed to care for patient at home: Yes Housing Circumstances-Z Codes: Housing Circumstances (select all that apply): None Applicable Discharge Facility/Level of Care Needs: Discharge Facility/Level of Care Needs: 3-Long Term Facility Patient/Family Anticipated Services at Transition: Patient/Family Anticipated Services at Transition: [facility], rehabilitation services DME/Equipment Needed after Discharge: Equipment [...] Notice Recieved By: Pt at bedside Follow-up: [facility] [address] [place], [place] [id number] Follow up Vignesh Pickens MD [address] [id number] Follow up Discharge Transportation: Transportation Anticipated: other (see comments) ([facility] Transportation Home at Discharge: Other(Comment) ([facility] Has discharge transport been arranged?: Yes What day is the transport expected?: 03/01/25 What time is the transport expected?: 0900 Follow Up Transport: Transportation Needed to Follow up Appoinments: Other(Comment) ([place]) Additional Comments: Plan of care reviewed with Pt's care team; Pt is medically ready for discharge. Pt is a resident [facility] in [place]. [facility]. [facility] 300[facility] fpg. Weekend CM to fax Pt's discharge summary to [phone], and bedside RN to call report to [phone]. Facility uses [facility] in [place]. SW met with Pt at bedside, who is agreeable. Anthony Vuaghn * Care Plan - Gerry Ambriz - [...] negative infectious workup. She was extubated to [place] w/o complications on 02/24/25. Currently saturating well [...] PAL MURF, Bcx NGTD S/p extubation 02/24, [place] for SPO2 92%+ PLAN: Supportive care for [...] resumed home meds continue Mirabegron HFrEF 2/2 [facility] - 11/2024 LVEF 35-40% - [...] OSH, 125 on arrival to [facility] - Serum osm wnl, urine [...] meds today F: soft and bite sized, ORDER TAKERS SUPERVISOR eval Code Status: Assume Full Medically Ready for Discharge: * Progress Notes - Anthony Vaughn - 02/28/2025 11:11 AM EDT Case Management Adult Progress Note Eileen May 64 y.o. female CSN: [id number] Admission: 02/22/2025 6:13 PM Primary Problem: Sepsis (CMS/HCC) Anticipated Discharge Date: TBD Has Discharge Plans Changed? No Additional Comments Plan of care reviewed with Pt's care team; Pt is not medically ready for discharge. Dental extraction planned for today. Anticipate discharge readiness tomorrow. Pt is a resident at [facility]. SW sent updated notes to Pt's [...] comments) Current Outpatient/Agency/Support Group: inpatient rehabilitation facility OT,PT,ORDER TAKERS SUPERVISOR Anticipated Changes Related to Illness: inability to care for self Transportation Anticipated: medical transport Outpatient/Agency/Support Group Needs: inpatient rehabilitation facility Transportation Concerns: none Current Discharge Risk: physical impairment Concerns to be Addressed: basic needs discharge planning Readmission Within the Last 30 Days: previous discharge plan unsuccessful Patient/Family Anticipated Services at Transition: employment evaluator/case manager durable medical equipment rehabilitation services Patient/Family Anticipates [...] comments) Current Outpatient/Agency/Support Group: inpatient rehabilitation facility OT,PT,ORDER TAKERS SUPERVISOR Anticipated Changes Related to Illness: inability to care for self Transportation Anticipated: medical transport Outpatient/Agency/Support Group Needs: inpatient rehabilitation facility Transportation Concerns: none Current Discharge Risk: physical impairment Concerns to be Addressed: basic needs discharge planning Readmission Within the Last 30 Days: previous discharge plan unsuccessful Patient/Family Anticipated Services at Transition: 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 She was extubated to [place] w/o complications on 02/24/25. Mentating well back [...] negative infectious workup. She was extubated to [place] w/o complications on 02/24/25. Events of past [...] in the posterior aspect of tooth #31. [place] wear in tooth number 8, 9 and [...] negative infectious workup. She was extubated to [place] w/o complications on 02/24/25. #Acute hypoxic respiratory [...] MURF, Bcx NGTD - S/p extubation 02/24, [place] for SPO2 92%+ PLAN: - Supportive care [...] home meds - continue Mirabegron #HFrEF 2/2 [facility] - 11/2024 LVEF 35-40% - [...] OSH, 125 on arrival to [facility] - Serum osm wnl, urine [...] meds today F: soft and bite sized, ORDER TAKERS SUPERVISOR eval A: oxy, acetaminophen, fentanyl patch [...] Chuy Graham DO Internal Medicine PGY-2 Pager [phone]; Epic Chat preferred Procedures [1] [2] PRN [...] negative infectious workup. She was extubated to [place] w/o complications on 02/24/25. During her hospital [...] is being transferred from ICU team to [facility] Team 14 Major Active Problems: Currently active [...] home meds - continue Mirabegron #HFrEF / [facility] - 11/2024 LVEF 35-40% - [...] meds today F: soft and bite sized, ORDER TAKERS SUPERVISOR eval A: oxy, acetaminophen, fentanyl patch [...] OSH, 125 on arrival to [facility] - Serum osm wnl, urine [...] Lunch Supplement frequency: Dinner Lunch supplement: [place] Quantity for Lunch of [place] Packet One Dinner supplement: Tony Fruit Punch [...] Chuy Graham DO Internal Medicine PGY-2 Pager [phone]; Epic Chat preferred * Care Plan - [...] Ongoing, Progressing Intervention: Promote Activity and Functional Cooper Flowsheets (Taken 02/26/2025 1750 by Bassem Jay, [...] Ongoing, Progressing Intervention: Promote Activity and Functional Cooper Flowsheets (Taken 02/26/2025 1750) Activity Assistance Provided: assistance refused education provided Self-Care Promotion: independence encouraged * Progress Notes - Eileen Ortega - 02/26/2025 11:16 AM EDT Physical Therapy Evaluation Patient Name: Eileen May Today's Date: 02/26/2025 PT Discharge Recommendations: Subacute rehab Equipment Recommended: Defer to facility History Eileen May is 64 y.o. female admitted 02/22/2025 for work-up of Sepsis ([facility]). Problem List Active Hospital Problems Diagnosis Date Noted Sepsis ([facility]) 02/22/2025 Procedures Past 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 Patient has a past medical history of Anxiety, Breast cancer, Cerebral infarction, unspecified ([facility]), COPD (chronic obstructive pulmonary disease) ([facility]), Depression, Fibromyalgia, History of falling, [...] relaxing. Participants in Care Family/Caregiver Present: No Bioinformatics Specialist: Not Applicable Presentation Oxygen Therapy: None [...] session; RN aware Home Living/Set-up Home Type: assisted facility Home Adaptive Equipment: Wheelchair-manual, Hospital bed [...] From: Caregiver Level of Mobility: Wheelchair/Scooter Mobility Cooper: Independent wheelchair propulsion History of Falls: No ADL Performance: Needs assistance Bathing: Needs assist Upper Body Dressing: Independent Lower Body Dressing: Needs assist Grooming: Independent Toileting: Needs assist Eating: Independent Home Management Skills: Unable to perform Patient/Family Goals Return home at [facility]. Objective Pain Pt reports having some [...] change. Bed Mobility Exam: Rolling/Turning Level of Cooper: Moderate assist (50% patient effort) (bilaterally) Physical/Nonphysical Assist: Verbal Cues, Minimal cues, 1 person + 1 person to manage equipment Assistive Device: Other (drawsheet) Bed Mobility Exam: Scooting/Bridging Level of Cooper: Maximum assist (25% patient's effort) (to head [...] space Standardized Assessments Standardized Assessments Standardized Assessments: [facility] 6-Clicks Mobility Assessment [facility] 6-Clicks Mobility Assessment Difficulty patient has turning [...] female admitted 02/22/2025 for work-up of Sepsis ([facility]). Hospital Course 1. [place] coma scale total score 9-12, at arrival to emergency department 2. Acute cystitis without hematuria 3. Acute respiratory failure with hypercapnia 4. COPD exacerbation ([facility]) Procedures Past 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 Patient has a past medical history of Anxiety, Breast cancer, Cerebral infarction, unspecified ([facility]), COPD (chronic obstructive pulmonary disease) ([facility]), Depression, Fibromyalgia, History of falling, [...] date Participants in Care Family/Caregiver Present: No Bioinformatics Specialist: Not Applicable Presentation Oxygen Therapy: None [...] treatment as tolerated Home Living/Set-Up Home Type: assisted facility Home Adaptive Equipment: Wheelchair-manual, Hospital bed [...] From: Caregiver Level of Mobility: Wheelchair/Scooter Mobility Cooper: Independent wheelchair propulsion History of Falls: No [...] of treatment space BED MOBILITY Level of Cooper Physical/Non- physical Assist Adaptive Equipment Utilized Rolling/ [...] to rot this date. TRANSFERS Level of Cooper Physical/Non- physical Assist Adaptive Equipment Utilized Sit to Stand Stand to sit Bed to Chair Toilet Transfer Shower Transfer Interventions Patient politely deferring transfer tasks this date; educated on use of amputee slingfor increased safety as patient expresses nervousness with transfer tasks. FUNCTIONAL MOBILITY Level of Cooper Distance Adaptive Equipment Utilized Ambulation Comments Patient does not ambulate at baseline* ADL / Self-Care Tasks Level of Cooper Adaptive Equipment Utilized Interventions Feeding Setup, Standby [...] increased patient rest/education throughout session. Standardized Assessments [facility] 6-Click Daily Activities Help from Other: Don/Doff Regular Lower Body Clothings: Total Help From Other: Bathing: A lot Help From Other: Toileting: Total Help From Other: Don/Doff Upper Body Clothings: Little Help From Other: Grooming: Little Help From Other: Eating Meals: None [facility] 6 Click - Daily Activities Score: 14 [...] negative infectious workup. She was extubated to [place] w/o complications on 02/24/25. Events of past [...] negative infectious workup. She was extubated to [place] w/o complications on 02/24/25. #Acute hypoxic respiratory [...] MURF, Bcx NGTD - S/p extubation 02/24, [place] for SPO2 92%+ PLAN: - Supportive care [...] OSH, 125 on arrival to [facility] - Serum osm wnl, urine [...] meds today F: soft and bite sized, ORDER TAKERS SUPERVISOR eval A: oxy, acetaminophen, fentanyl patch [...] Chuy Graham, DO Internal Medicine PGY-2 Pager [phone]; Epic Chat preferred Procedures [1] [2] PRN [...] Infection Flowsheets Taken 02/25/2025 0800 by Bassem aJy RN Isolation Precautions: precautions maintained Taken 02/23/2025 [...] -Schedule patient to follow-up on 5th floor [facility] for extraction of #15 underlocal anesthesia. -we will arrange transport to clinic from hospital bed. - Diet: Regular; NPO at midnight prior to surgery -For extraction of one tooth it is not warranted to stop current anticoagulation therapy. -Follow current recommendations of Primary team. [facility] Department of Oral & Maxillofacial Surgery [address] [facility] Fifth Floor, [address] [place] [address] Dispo: Continue Current Level of Care Bert [...] BREAST SURGERY N/A Breast Surgery Reconstruction from [facility] BREAST SURGERY N/A Breast Surgery from [facility] CHOLECYSTECTOMY N/A Cholecystotomy from [facility] KIDNEY SURGERY N/A Kidney Surgery from [facility] KNEE SURGERY N/A Knee Surgery from [facility] MASTECTOMY N/A Breast Surgery Mastectomy from [facility] SHOULDER SURGERY Right Shoulder Surgery Right from [facility] [3] No current facility-administered medications on file [...] is unaware of what reaction. Pedi-Pre Tape Guffey [Wound Dressing Adhesive] Rash Wellbutrin [Bupropion] Rash Cosigned by Jin Rodriguez DDS at 02/26/2025 10:04 AM EDT Associated attestation - Jin Rodriguez DDS - 02/26/2025 10:04 AM EDT I reviewed with Dr. Bowling and agree with the plan * Progress Notes - Sarah Rand - 02/25/2025 3:11 PM EDT Case Management Adult Initial Progress Note Eileen Chayito May 64 y.o. female CSN: [id number] Admission: 02/22/2025 6:13 PM Primary Problem: Sepsis (CMS/HCC) Hardwood Floor Refinisher reviewed chart and spoke with patient to complete this Initial Case Management Assessment. PCP: Vignesh Pickens MD Emergency Contact: Extended Emergency Contact Information Primary Emergency Contact: Val Howell Mobile Relation: Sister Bioinformatics Specialist needed? No Insurance: Primary Visit Coverage Payer Plan Sponsor Code Group Number Group Name MEDICARE MEDICARE A & B Primary Visit Coverage Subscriber Subscriber ID Subscriber Name Subscriber [facility] Subscriber Address [id number] EILEEN MAY [phone] [address] Secondary Visit Coverage Payer Plan Sponsor Code Group Number Group Name MEDICAID-[facility] MEDICAID TRADITIONAL Secondary Visit Coverage Subscriber Subscriber ID Subscriber Name Subscriber N Subscriber Address [id number] EILEEN MAY [id number] [place] [address] Patient information: Primary Caregiver: Private caregiver Support System: Immediate family Daily Living Activities: Functional Status: Moderate assistance Living Arrangements: Longterm Type of Residence: assisted facility [facility] [place] [address] Current DME: Equipment Currently Used at Home: [...] living facility Discharge Transport: Follow Up Transport: [facility] provides follow up transportation. Patient will need assistance with transportation when medically stable. Home Health / Home Infusion / Outpatient Dialysis Services: None reported. Living Will/Advance Directive/Power of Coding Advisor /Guardian: None reported. Sister/Val is NOK. Additional [...] Note Eileen May 64 y.o. female CSN: [id number] Room/Bed 121/121A Nutrition evaluation type: follow-up Reason [...] 36.76 Weight Evaluation: Obese-Class 2 (BMI 35-39.9) [place] Body Weight (kg): 48.55 (adjusted for left AKA) Percent [place] Body Weight: 198 Adjusted Body Weight (kg): [...] oz) Estimated Needs: Kcal/ K-30 Kcal Provided: 1106-2455 Kcal Needs Based On: Adjusted weight (60.5 kg) Gm Protein/ Kg : 1.2-1.5 Protein Provided: 73-91 Protein Needs Based On: Adjusted weight (60.5 kg) Fluid Provided: 1 ml/kcal or per MD team Metabolic Cart Study Results: Current Nutrition Intake: Diet Supplements: None Diet Order: Adult Diet Diet Texture: Full Liquid Adult Carbohydrate Restriction: Consistent CHO 2 (6480-3540 [place], 80 g/meal) Percent Meals Eaten (%): 50% x 1 meal Diet Experience and Nutrition History: Diet Education Provided: Will monitor Pertinent home medications: ascorbic acid, calcitriol, cholecalciferol, cyanocobalamin, ferrous sulfate, insulin, loperamide, magnesium oxide, MVI, ondansetron, Percocet, pantoprazole Baptism needs: Nutrition Focused Physical Exam: Unable to Complete Exam: Patient unable to participate Physical exam performed on (date): Assessment of Malnutrition: Nutrition Problem: Inadequate oral intake related to current clinical condition as evidenced by full liquid diet. Status of Nutrition Diagnosis: Ongoing Nutrition Interventions and Recommendations: - Advance diet as appropriate per ORDER TAKERS SUPERVISOR - CHO 2 diet - Add [...] BREAST SURGERY N/A Breast Surgery Reconstruction from [facility] BREAST SURGERY N/A Breast Surgery from [facility] CHOLECYSTECTOMY N/A Cholecystotomy from [facility] KIDNEY SURGERY N/A Kidney Surgery from [employer] KNEE SURGERY N/A Knee Surgery from [employer] MASTECTOMY N/A Breast Surgery Mastectomy from [employer] SHOULDER SURGERY Right Shoulder Surgery Right from [employer] [3] atorvastatin, 40 mg, Oral, Nightly baclofen, [...] negative infectious workup. She was extubated to [place] w/o complications on 02/24/25. Events of past 24 hours: - no acute events overnight - was extubated 02/24/25 to [place], doing well, currently above goal on 2L [...] negative infectious workup. She was extubated to [place] w/o complications on 02/24/25. #Acute hypoxic respiratory [...] Bcx NGTD PLAN: - S/p extubation 02/24, [place] for SPO2 92%+ - Supportive care for [...] meds today - on Mirabegron #HFrEF 2/2 [facility] - 11/2024 LVEF 35-40% - [...] OSH, 125 on arrival to [facility] - Serum osm wnl, urine [...] meds today F: full liquid carb 2, ORDER TAKERS SUPERVISOR eval A: oxy, acetaminophen, prn dilaudid [...] Chuy Graham DO Internal Medicine PGY-2 Pager [phone]; Epic Chat preferred Procedures [1] [2] PRN [...] Note Eileen May 64 y.o. female CSN: [id number] Room/Bed 121/121A Nutrition evaluation type: assessment Reason [...] 36.39 Weight Evaluation: Obese-Class 2 (BMI 35-39.9) [place] Body Weight (kg): 48.55 (adjusted for left AKA) Percent [place] Body Weight: 198 Adjusted Body Weight (kg): [...] oz) Estimated Needs: Kcal/ K-30 Kcal Provided: 3412-1157 Kcal Needs Based On: Adjusted weight (60.5 [...] loperamide, magnesium oxide, MVI, ondansetron, Percocet, pantoprazole Baptism needs: Nutrition Focused Physical Exam: Unable to Complete Exam: Weekend coverage Physical exam performed on (date): pending Assessment of Malnutrition: Nutrition Problem: Inadequate oral intake related to current clinical condition as evidenced by GCS 11, NPO diet order. Status of Nutrition Diagnosis: New Nutrition Interventions and Recommendations: PO diet advancement per ORDER TAKERS SUPERVISOR/MD team. TF recs if warranted: Diabetisource [...] BREAST SURGERY N/A Breast Surgery Reconstruction from [employer] BREAST SURGERY N/A Breast Surgery from [employer] CHOLECYSTECTOMY N/A Cholecystotomy from [employer] KIDNEY SURGERY N/A Kidney Surgery from [employer] KNEE SURGERY N/A Knee Surgery from [employer] MASTECTOMY N/A Breast Surgery Mastectomy from [employer] SHOULDER SURGERY Right Shoulder Surgery Right from [employer] [3] atorvastatin, 40 mg, Nasogastric, Nightly clopidogrel, [...] limited positioning supports utilized pressure points protected mwdh-ne-qzxoma areas padded tubing/devices free from skin contact [...] continued concern or difficult irrigating, contact Urology manager commission. #hypovolemic Hyponatremia, resolved - baseline Na 130-135 - Na 120 at OSH, 125 on arrival to [facility] - Serum osm wnl, urine [...] Ralph. Boyd Romano. Internal Medicine PGY-2 Pager [phone] Critical Care Performed by: Luda Ralph MD [...] consult to Urology Consult performed by: Jake Sheest MD Consult ordered by: Luda Ralph MD [facility] Urology Consult Note 02/23/25 Service [...] hydronephrosis and neurogenic bladder who presented to [facility] ED as a transfer from OSH [...] findings. Hospital Problem List: Principal Problem: Sepsis ([facility]) Assessment: Eileen May is a [...] need to be upsized to a 20 [place] catheter to allow for easier drainage. We [...] continued concern or difficult irrigating, contact Urology manager commission. Jake Sheets MD Urology PGY-2 [1] Past [...] CKD (CMS/HCC); Chronic kidney disease, stage 3a ([facility]/HCC); Sepsis with encephalopathy without septic shock, due to unspecified organism ([facility]) Images from the original note [...] GCS 6-7 on arrival to [facility] therefore intubated for airway protection [...] add vanc/cefepime to her for coverage #Non-oliguric GEOAVNNI on CKD stage 3b with Disorder of [...] continued concern or difficult irrigating, contact Urology manager commission. #Hyponatremia - baseline Na 130-135 - Na 120 at OSH, 125 on arrival to [facility] PLAN: - will continue to [...] Chuy Graham, DO Internal Medicine PGY-2 Pager [phone]; Epic Chat preferred Critical Care Performed by: [...] Least Restrictive Safety Strategies Flowsheets (Taken 02/22/20252235) Manager Strategy & Account Protection: torso covered tubing secured Diversional Activities: [...] and AMS. Patient presented to OSH from [facility] due to concern for hyponatremia, encephalopathy [...] duonebs and azithromycin. Transferred to [facility] for higher level of care. On arrival to [facility] ED, patient GCS 6-7, VBG7.28/60/41, [...] GCS 6-7 on arrival to [facility] therefore intubated for airway protection [...] OSH, 125 on arrival to [facility] - will continue to monitor with q4h Na HFrEF 2/2 [facility] - 11/2024 LVEF 35-40% - [...] Rachel Shipman MD PGY-3, Internal Medicine Pager: [phone] Procedures [1] Family History Problem Relation Name [...] bag 0.25 mg Intravenous q10 min PRN Knollcrest, Leon B, DO 0.25 mg at 02/22/251953 Or HYDROmorphone (Dilaudid) bolus from bag 0.5 mg Intravenous q10 min PRN Knollcrest, Leon B, DO 0.5 mg at 02/22/251926 hydromorphone 20 mg in NS 100 mL infusion (200 mcg/mL) 0.25-2 mg/hr Intravenous Titrated Knollcrest, Leon B, DO 1.25 mL/hr at 02/22/251926 0.25 mg/hr at 02/22/251926 ipratropium-albuterol (Duo-Neb) 0.5-2.5 mg/3 mL nebulizer solution 3 mL 3 mL Nebulization Once Knollcrest, Leon B, DO mupirocin (Bactroban) 2 % [...] evaluated the patient with the resident/fellow via [facility] ICU audio- visual support as [...] CTHAP: no acute findings Steroids in ED [facility] ED -> transferred here. VBG [...] Bag 02/22/2025 1906 EDT phenylephrine in NS (Vitro-Synephrine) 100 mcg/mL prefilled syringe - Pyxis Override [...] Daily Order ID Start Status Ordering Provider [id number] 02/23/25 0800 Ordered MORTONLUDA Stevens 02/24/25 0600 [...] Continuous Order ID Start Status Ordering Provider [id number] 02/22/25 1859 Ordered LUDA MORTON [id number] 02/22/25 2000 Completed LUDA MORTON [id number] 02/23/25 0800 Ordered LUDA MORTON T 02/23/251999 Scheduled MORTONLUDA 02/24/25 0800 Scheduled MORTON, LUDA Cisneros 02/24/251999 Scheduled MORTON, LUDA T 02/25/25 0800 Scheduled MORTON, LUDA T 02/25/251999 Scheduled MORTON LUDA Cisneros 02/26/25 0800 Scheduled MORTON, LUDA Cisneros 02/26/251999 Scheduled MORTON, LUDA Cisneros Ordered MORTON LUDA Cisneros 02/22/251857 End Tidal co2 Monitoring Continuous Order ID Start Status Ordering Provider [id number] 02/22/251858 Ordered MORTONLUDA Stevens [id number] 02/22/251999 Completed MORTON LUDA Cisneros [id number] 02/23/25 08 Ordered MORTON LUDA Cisneros 02/23/251999 [...] mucosal integrityUntil discontinued Ordered LUDA MORTON 02/22/251857 [place] teeth every 12 hours Until discontinued Ordered [...] 1831 Blood gas panel, venous STAT Collected LUDA MORTON 02/22/25 1831 Ethyl Alcohol Plasma STAT Collected [...] intracranial process but multiple chronic infarcts and wmqy-sk-jbhorksv small-vessel disease. Additionally CT angio of the [...] within normal ranges. Lactate also normal at [facility]. No further advanced imaging was [...] (cerebral infarction) COPD (chronic obstructive pulmonary disease) ([facility]) Depression Fibromyalgia History of falling [...] BREAST SURGERY N/A Breast Surgery Reconstruction from [employer] BREAST SURGERY N/A Breast Surgery from [employer] CHOLECYSTECTOMY N/A Cholecystotomy from [employer] KIDNEY SURGERY N/A Kidney Surgery from [employer] KNEE SURGERY N/A Knee Surgery from [employer] MASTECTOMY N/A Breast Surgery Mastectomy from [employer] SHOULDER SURGERY Right Shoulder Surgery Right from [employer] [3] Family History Problem Relation Name Age [...] is unaware of what reaction. Pedi-Pre Tape Guffey [Wound Dressing Adhesive] Rash Wellbutrin [Bupropion] Rash [...] Care Team (Late st Contact Info) Description 04/08/2025 9:20 AM EDT Office Visit [facility] Urology [address] [place] [address] Cayla Erazo, ORAL AND MAXILLOFACIAL SURGERY, DNP [address] [place] [address] 05/16/2025 8:00 AM EDT Office Visit [facility] [place] [facility] [address], [address] [place] [address] Karly Gracia MD [address] [place] [address] 06/07/2025 1:00 PM EDT Office Visit [facility] [address] [place] [address] Tom Iraheta MD [address] [place] [address] documented as of this encounter [...] EDT EXTUBATION Routine 02/24/2025 9:49 AM EDT [facility], E/M 30-74 MINUTES Routine 02/24/2025 7:08 AM EDT Acute respiratory failure with hypoxia and hypercapnia Acute kidney injury superimposed on CKD ([facility]) Chronic kidney disease, stage 3a ([facility]) Hyponatremia Acute encephalopathy Sepsis with encephalopathy without septic shock, due to unspecified organism ([facility]) Chronic diastolic (congestive) heart failure ([facility]) POCT GLUCOSE METER UNSOLICITED RESULTS [...] AND TREAT Routine 02/23/2025 10:25 AM EDT ME [facility], E/M 30-74 MINUTES Routine 02/23/2025 9:10 AM EDT Acute respiratory failure with hypoxia and hypercapnia Acute kidney injury superimposed on CKD ([facility]) Chronic kidney disease, stage 3a ([facility]) Hyponatremia Acute encephalopathy Sepsis with encephalopathy without septic shock, due to unspecified organism ([facility]) SODIUM, PLASMA Timed 02/23/2025 8:34 [...] POCT glucose meter (03/02/2025 8:13 AM EDT) [facility] POCT Glucose 188(H) 74 - 99 mg/dL [...] Comment 03/02/2025 8:14 AM EDT HEALTHCARE LAB Operations Examiner ID YvroseStefanie frausto 025 8:14 AM EDT [facility] Device ID [id number] 03/02/2025 8:14 AM EDT [facility] Specimen Type POC Capillary 03/02/2025 8:14 AM EDT [facility] Blood Capillary blood specimen / Unknown 03/02/2025 8:13 AM EDT 03/02/2025 8:14 AM EDT Madonna Mani [facility] POINT OF CARE TE ST DOCKED DEVICE UNSOLICITED RESULTS Final Result Performing Organization Address City/State/[facility] Co de Phone Number HEALTHCARE LAB [address] [place] [address] * (ABNORMAL) POCT glucose meter (03/01/2025 7:46 PM EDT) [facility] POCT Glucose 134(H) 74 - 99 mg/dL [...] 03/01/2025 7:47 PM EDT [facility] Operations Examiner ID Kamron Freire 03/01/2025 7:47 PM EDT [facility] Device ID [id number] 03/01/2025 7:47 PM EDT [facility] Specimen Type POC Capillary 03/01/2025 7:47 PM EDT [facility] Blood Capillary blood specimen / Unknown 03/01/2025 7:46 PM EDT 03/01/2025 7:47 PM EDT us Madonna Singleton MD LAB POINT OF CARE TE ST DOCKED DEVICE UNSOLICITED RESULTS Final Result Performing Organization Address City/[facility]/ZIP Co de Phone Number [facility] [address] [place] [address] * (ABNORMAL) POCT glucose meter (03/01/2025 5:42 [...] 03/01/2025 5:45 PM EDT [facility] Operations Examiner ID Norberto Smyth 03/01/20 5:45 PM EDT [facility] Device ID [id number] 03/01/2025 5:45 PM EDT [facility] Specimen Type POC Capillary 03/01/2025 5:45 PM EDT [facility]ALTH[facility]ARE [facility] Blood Capillary blood specimen / Unknown 03/01/2025 5:42 PM EDT 03/01/2025 5:45 PM EDT us Madonna Singleton MD LAB POINT OF CARE TE ST DOCKED DEVICE UNSOLICITED RESULTS Final Result Performing Organization Address City/[facility]/ZIP Co de Phone Number [facility] [address] [place] [address] * SEND HECTOR MESSAGE (03/01/2025 4:15 PM EDT) Urine Urine specimen obtained by clean catch procedure / Unknown Non-blood Collection / Unknown 03/01/2025 4:15 PM EDT 03/01/2025 4:26 PM EDT us Madonna Mani [facility] URINE ORDERABLES Final Resul t [facility] [address] [place] [address] * (ABNORMAL) Urine Culture (03/01/2025 4:15 PM EDT) Culture 10,000 - 100,000 CFU/mL Enterobacter cloacae complex(A) CHRISTIANO 03/05/2025 12:12 PM EDT [facility] Comment: This isolate has been identified using the FDA Approved BIScience CA System Edited result: Previously reported as [...] ORDER GIO Final Result Performing Organization Address [facility] Co de Phone Number [facility] [address] [place] [address] * Urinalysis Microscopic Examination (03/01/2025 4:15 PM EDT) Urine Urine specimen obtained by clean catch procedure / Unknown Non-blood Collection / Unknown 03/01/2025 4:15 PM EDT 03/01/2025 4:26 PM EDT us Madonna Singleton MD LAB URINE ORDERABLES Final Resul t Performing Organization Address [facility] de Phone Number [facility] [address] [place] [address] * Urine Salmon Panel (03/01/2025 4:15 PM EDT) Extra Sent for Culture 03/01/2025 6:01 PM EDT [facility] Urine Urine specimen obtained by clean catch procedure / Unknown Non-blood Collection / Unknown 03/01/2025 4:15 PM EDT 03/01/2025 4:26 PM EDT us Madonna Singleton MD LAB URINE ORDERABLES Final Resul t Performing Organization Address [facility] Co de Phone Number [facility] [address] [place] [address] * (ABNORMAL) Urinalysis with reflex microscopic (Culture NOT Included) (03/01/2025 4:15 PM EDT) Color, Urine Yellow LAB URINALYSIS - AUTOMATED METHOD 03/01/2025 4:34 PM EDT [facility] Clarity, Urine Cloudy LAB URINALYSIS - AUTOMATED METHOD 03/01/2025 4:34 PM EDT [facility] Spec Jackson, Urine 1.008 1.005 - 1.030 LAB URINALYSIS - AUTOMATED METHOD 03/01/2025 4:34 PM EDT [facility] pH, Urine 6.5 5.0 - 8.0 LAB URINALYSIS - AUTOMATED METHOD 03/01/2025 4:34 PM EDT [facility] Protein, Urine 30(A) Negative mg/dL LAB URINALYSIS - AUTOMATED METHOD 03/01/2025 4:34 PM EDT [facility] Glucose, Urine Negative Negative mg/dL LAB URINALYSIS - AUTOMATED METHOD 03/01/2025 4:34 PM EDT [facility] Ketones, Urine Negative Negative mg/dL LAB URINALYSIS - AUTOMATED METHOD 03/01/2025 4:34 PM EDT [facility] Blood, Urine Large(A) Negative LAB URINALYSIS - AUTOMATED METHOD 03/01/2025 4:34 PM EDT [facility] Bilirubin, Urine Negative Negative LAB URINALYSIS - AUTOMATED METHOD 03/01/2025 4:34 PM EDT [facility] Urobilinogen, Urine 0.2 0.2 to 1.0 mg/dL LAB URINALYSIS - AUTOMATED METHOD 03/01/2025 4:34 PM EDT [facility] Leukocytes, Urine Large(A) Negative LAB URINALYSIS - AUTOMATED METHOD 03/01/2025 4:34 PM EDT [facility] Nitrite, Urine Negative Negative LAB URINALYSIS - AUTOMATED METHOD 03/01/2025 4:34 PM EDT [facility] RBC, Urine >50(A) 0 to 3 /HPF LAB URINALYSIS - AUTOMATED METHOD 03/01/2025 4:34 PM EDT [facility] WBC, Urine >50(A) 0 to 5 /HPF LAB URINALYSIS - AUTOMATED METHOD 03/01/2025 4:34 PM EDT [facility] Squamous Epithelial Cells 3 - 5 0 to 5 /HPF LAB URINALYSIS - AUTOMATED METHOD 03/01/2025 4:34 PM EDT [facility] Hyaline Casts 0 - 2 0 to 5 /LPF LAB URINALYSIS - AUTOMATED METHOD 03/01/2025 4:34 PM EDT [facility] Bacteria, Urine Negative Negative LAB URINALYSIS - AUTOMATED METHOD 03/01/2025 4:[address] [facility] Urine Urine specimen obtained by clean catch procedure / Unknown Non-blood Collection / Unknown 03/01/2025 4:15 PM EDT 03/01/2025 4:26 PM EDT us Madonna Singleton MD LAB URINE ORDERABLES Final Resul t [facility] [address] [place] [address] * (ABNORMAL) POCT glucose meter (03/01/2025 12:03 [...] Comment 03/01/2025 12:05 PM EDT HEALTHCARE LAB Operations Examiner ID Rocky, Serenity 03/01/2025 12:05 PM EDT HEALTHCARE LAB Device ID [id number] 03/01/2025 12:05 PM EDT [facility] Specimen Type POC Capillary 03/01/2025 12:05 PM EDT [facility] Blood Capillary blood specimen / Unknown 03/01/2025 12:03 PM EDT 03/01/2025 12:05 PM EDT us Madonna Singleton MD LAB POINT OF CARE TE ST DOCKED DEVICE UNSOLICITED RESULTS Final Result [facility] [address] [place] [address] * (ABNORMAL) POCT glucose meter (03/01/2025 7:59 [...] Comment 03/01/2025 8:01 AM EDT HEALTHCARE LAB Operations Examiner ID Nancy Hidalgo 03/01/2025 8:01 AM EDT HEALTHCARE LAB Device ID [id number] 03/01/2025 8:01 AM EDT HEALTHCARE LAB Specimen Type POC Capillary 03/01/2025 8:01 AM EDT [facility] Blood Capillary blood specimen / Unknown 03/01/2025 7:59 AM EDT 03/01/2025 8:01 AM EDT us Madonna Mani [facility] POINT OF CARE TE ST DOCKED DEVICE UNSOLICITED RESULTS Final Result Performing Organization Address City/State/[facility] Co de Phone Number HEALTHCARE LAB [address] [place] [address] * (ABNORMAL) CBC and Differential (03/01/2025 4:08 AM EDT) WBC Count 6.83 3.70 - 10.30 10*3/uL LAB HEMATOLOGY METHOD 03/01/2025 4:54 AM EDT [facility] RBC Count 3.61(L) 3.90 - 5.20 10*6/uL LAB HEMATOLOGY METHOD 03/01/2025 4:54 AM EDT [facility] HGB 9.2(L) 11.2 - 15.7 g/dL LAB HEMATOLOGY METHOD 03/01/2025 4:54 AM EDT [facility] HCT 29.9(L) 34.0 - 45.0 % LAB HEMATOLOGY METHOD 03/01/2025 4:54 AM EDT [facility] Platelet Count 294 155 - 369 10*3/uL LAB HEMATOLOGY METHOD 03/01/2025 4:54 AM EDT [facility] MCV 83 79 - 98 fL LAB HEMATOLOGY METHOD 03/01/2025 4:54 AM EDT [facility] MCH 25.5(L) 26.0 - 32.0 pg LAB HEMATOLOGY METHOD 03/01/2025 4:54 AM EDT [facility] MCHC 30.8 30.7 - 35.5 g/dL LAB HEMATOLOGY METHOD 03/01/2025 4:54 AM EDT [facility] RDW 15.1(H) 11.5 - 14.5 % LAB HEMATOLOGY METHOD 03/01/2025 4:54 AM EDT [facility] MPV 9.2 8.8 - 12.5 fL LAB HEMATOLOGY METHOD 03/01/2025 4:54 AM EDT [facility] nRBC 0.0 <=0.0 per 100 WBCs LAB HEMATOLOGY METHOD 03/01/2025 4:54 AM EDT [facility] Differential Type Automated LAB HEMATOLOGY METHOD 03/01/2025 4:54 AM EDT [facility] Neutrophils % 56 % LAB HEMATOLOGY METHOD 03/01/2025 4:54 AM EDT [facility] Lymphocytes % 25 % LAB HEMATOLOGY METHOD 03/01/2025 4:54 AM EDT [facility] Monocytes % 11 % LAB HEMATOLOGY METHOD 03/01/2025 4:54 AM EDT [facility] Eosinophils % 6 % LAB HEMATOLOGY METHOD 03/01/2025 4:54 AM EDT [facility] Basophils % 1 % LAB HEMATOLOGY METHOD 03/01/2025 4:54 AM EDT [facility] Immature Granulocytes % 1 % LAB HEMATOLOGY METHOD 03/01/2025 4:54 AM EDT [facility] Neutrophils Absolute 3.86 1.60 - 6.10 10*3/uL LAB HEMATOLOGY METHOD 03/01/2025 4:54 AM EDT [facility] Lymphocytes Absolute 1.70 1.20 - 3.90 10*3/uL LAB HEMATOLOGY METHOD 03/01/2025 4:54 AM EDT [facility] Monocytes Absolute 0.74 0.30 - 0.90 10*3/uL LAB HEMATOLOGY METHOD 03/01/2025 4:54 AM EDT [facility] Eosinophils Absolute 0.44 0.00 - 0.50 10*3/uL LAB HEMATOLOGY METHOD 03/01/2025 4:54 AM EDT [facility] Basophils Absolute 0.05 0.00 - 0.10 10*3/uL LAB HEMATOLOGY METHOD 03/01/2025 4:54 AM EDT [facility] Immature Granulocytes Absolute 0.04 0.00 - 0.06 10*3/uL LAB HEMATOLOGY METHOD 03/01/2025 4:54 AM EDT [facility] Blood Venous blood specimen / Unknown Venipuncture / Unknown 03/01/2025 4:08 AM EDT 03/01/2025 4:42 AM EDT Narrative [facility] - 03/01/2025 4:54 AM EDT Therapeutic decision making should be based on absolute values, rather than percentages. us Madonna Singleton MD LAB BLOOD ORDERABLES Final Resul t Performing Organization Address City/[facility]/ZIP Co de Phone Number [facility] [address] [place] [address] * Magnesium, Plasma (03/01/2025 4:08 AM EDT) Magnesium, Plasma 2.0 1.9 - 2.4 mg/dL 03/01/2025 5:14 AM EDT [facility] Blood Venous blood specimen / Unknown Venipuncture / Unknown 03/01/2025 4:08 AM EDT 03/01/2025 4:43 AM EDT us Madonna Singleton MD LAB BLOOD ORDERABLES Final Resul t Performing Organization Address City/[facility]/ZIP Co de Phone Number [facility] [address] [place] [address] * (ABNORMAL) Basic Metabolic Panel, Plasma (03/01/2025 4:08 AM EDT) Glucose, Plasma 205(H) 74 - 99 mg/dL 03/01/2025 5:14 AM EDT [facility] BUN, Plasma 40(H) 8 - 23 mg/dL 03/01/2025 5:14 AM EDT [facility] Creatinine, Plasma 1.84(H) 0.60 - 1.10 mg/dL 03/01/2025 5:14 AM EDT [facility] BUN/Creatinine Ratio 22 03/01/2025 5:14 AM EDT [facility] Sodium, Plasma 125(L) 136 - 145 mmol/L 03/01/2025 5:14 AM EDT [facility] Potassium, Plasma 4.5 3.6 - 4.9 mmol/L 03/01/2025 5:14 AM EDT [facility] Chloride, Plasma 91(L) 97 - 107 mmol/L 03/01/2025 5:14 AM EDT [facility] CO2, Plasma 23 22 - 29 mmol/L 03/01/2025 5:14 AM EDT [facility] Anion Gap 11 6 - 16 mmol/L 03/01/2025 5:14 AM EDT [facility] Total Calcium, Plasma 8.8(L) 8.9 - 10.2 mg/dL 03/01/2025 5:14 AM EDT [facility] eGFRcr 30.1 mL/min/1.7 3m*2 03/01/2025 5:14 AM EDT [facility] Comment:Reported eGFRcr in m L/min/1.73m2 is based the CKD-EPI 2020 equation that does not use a race coefficient. Blood Venous blood specimen / Unknown Venipuncture / Unknown 03/01/2025 4:08 AM EDT 03/01/2025 4:43 AM EDT us Madonna Singleton MD LAB BLOOD ORDERABLES Final Resul t Performing Organization Address City/[facility]/ZIP Co de Phone Number [facility] [address] [place] [address] * Phosphorus, Plasma (03/01/2025 4:08 AM EDT) Phosphorus, Plasma 4.4 2.5 - 4.5 mg/dL 03/01/2025 5:14 AM EDT [facility] Blood Venous blood specimen / Unknown Venipuncture / Unknown 03/01/2025 4:08 AM EDT 03/01/2025 4:43 AM EDT us Madonna Singleton MD LAB BLOOD ORDERABLES Final Resul t Performing Organization Address City/[facility]/ZIP Co de Phone Number [facility] [address] [place] [address] * (ABNORMAL) POCT glucose meter (03/01/2025 3:09 AM EDT) [facility] POCT Glucose 187(H) 74 - 99 mg/dL [...] Comment 03/01/2025 3:35 AM EDT HEALTHCARE LAB Operations Examiner ID Pat Young 03/01/2025 3:35 AM EDT [facility] Device ID [id number] 03/01/2025 3:35 AM EDT HEALTHCARE LAB Specimen Type POC Capillary 03/01/2025 3:35 AM EDT [facility] Blood Capillary blood specimen / Unknown 03/01/2025 3:09 AM EDT 03/01/2025 3:35 AM EDT Madonna Singleton MD LAB POINT OF CARE TE ST DOCKED DEVICE UNSOLICITED RESULTS Final Result Performing Organization Address City/State/[facility] Co de Phone Number HEALTHCARE LAB [address] [place], [place] [id number] * (ABNORMAL) POCT glucose meter (02/28/2025 8:25 PM EDT) [facility] POCT Glucose 258(H) 74 - 99 mg/dL [...] 02/28/2025 8:42 PM EDT [facility] Operations Examiner ID Pat Young 02/28/2025 8:42 PM EDT HEALTHCARE LAB Device ID [id number] 02/28/2025 8:42 PM EDT [facility] Specimen Type POC Capillary 02/28/2025 8:42 PM EDT HEALTHCARE LAB Blood Capillary blood specimen / Unknown 02/28/2025 8:25 PM EDT 02/28/2025 8:42 PM EDT us Madonna Singleton MD LAB POINT OF CARE TE ST DOCKED DEVICE UNSOLICITED RESULTS Final Result Performing Organization Address City/[facility] Co de Phone Number HEALTHCARE LAB [address] [place] [address] * (ABNORMAL) POCT glucose meter (02/28/2025 4:59 PM EDT) Pathologist [facility] POCT Glucose 300(H) 74 - 99 mg/dL [...] Comment 02/28/2025 5:00 PM EDT HEALTHCARE LAB Operations Examiner ID Rocky, Serenity 02/28/2025 5:00 PM EDT HEALTHCARE LAB Device ID [id number] 02/28/2025 5:00 PM EDT HEALTHCARE LAB Specimen Type POC Capillary 02/28/2025 5:00 PM EDT [facility] Blood Capillary blood specimen / Unknown 02/28/2025 4:59 PM EDT 02/28/2025 5:00 PM EDT us Madonna Singleton MD LAB POINT OF CARE TE ST DOCKED DEVICE UNSOLICITED RESULTS Final Result Performing Organization Address City/[facility]/ZIP Co de Phone Number HEALTHCARE LAB [address] [place] [address] * (ABNORMAL) CBC and Differential (02/28/2025 1:04 PM EDT) WBC Count 7.39 3.70 - 10.30 10*3/uL LAB HEMATOLOGY METHOD 02/28/2025 1:37 PM EDT [facility] RBC Count 4.30 3.90 - 5.20 10*6/uL LAB HEMATOLOGY METHOD 02/28/2025 1:37 PM EDT [facility] HGB 11.0(L) 11.2 - 15.7 g/dL LAB HEMATOLOGY METHOD 02/28/2025 1:37 PM EDT [facility] HCT 35.0 34.0 - 45.0 % LAB HEMATOLOGY METHOD 02/28/2025 1:37 PM EDT [facility] Platelet Count 399(H) 155 - 369 10*3/uL LAB HEMATOLOGY METHOD 02/28/2025 1:37 PM EDT [facility] MCV 81 79 - 98 fL LAB HEMATOLOGY METHOD 02/28/2025 1:37 PM EDT [facility] MCH 25.6(L) 26.0 - 32.0 pg LAB HEMATOLOGY METHOD 02/28/2025 1:37 PM EDT [facility] MCHC 31.4 30.7 - 35.5 g/dL LAB HEMATOLOGY METHOD 02/28/2025 1:37 PM EDT [facility] RDW 15.5(H) 11.5 - 14.5 % LAB HEMATOLOGY METHOD 02/28/2025 1:37 PM EDT [facility] MPV 9.0 8.8 - 12.5 fL LAB HEMATOLOGY METHOD 02/28/2025 1:37 PM EDT [facility] nRBC 0.0 <=0.0 per 100 WBCs LAB HEMATOLOGY METHOD 02/28/2025 1:37 PM EDT [facility] Differential Type Automated LAB HEMATOLOGY METHOD 02/28/2025 1:37 PM EDT [facility] Neutrophils % 62 % LAB HEMATOLOGY METHOD 02/28/2025 1:37 PM EDT [facility] Lymphocytes % 21 % LAB HEMATOLOGY METHOD 02/28/2025 1:37 PM EDT [facility] Monocytes % 9 % LAB HEMATOLOGY METHOD 02/28/2025 1:37 PM EDT [facility] Eosinophils % 6 % LAB HEMATOLOGY METHOD 02/28/2025 1:37 PM EDT [facility] Basophils % 1 % LAB HEMATOLOGY METHOD 02/28/2025 1:37 PM EDT [facility] Immature Granulocytes % 1 % LAB HEMATOLOGY METHOD 02/28/2025 1:37 PM EDT [facility] Neutrophils Absolute 4.64 1.60 - 6.10 10*3/uL LAB HEMATOLOGY METHOD 02/28/2025 1:37 PM EDT [facility] Lymphocytes Absolute 1.54 1.20 - 3.90 10*3/uL LAB HEMATOLOGY METHOD 02/28/2025 1:37 PM EDT [facility] Monocytes Absolute 0.69 0.30 - 0.90 10*3/uL LAB HEMATOLOGY METHOD 02/28/2025 1:37 PM EDT [facility] Eosinophils Absolute 0.41 0.00 - 0.50 10*3/uL LAB HEMATOLOGY METHOD 02/28/2025 1:37 PM EDT [facility] Basophils Absolute 0.05 0.00 - 0.10 10*3/uL LAB HEMATOLOGY METHOD 02/28/2025 1:37 PM EDT [facility] Immature Granulocytes Absolute 0.06 0.00 - 0.06 10*3/uL LAB HEMATOLOGY METHOD 02/28/2025 1:37 PM EDT [facility] Blood Venous blood specimen / Unknown Venipuncture / Unknown 02/28/2025 1:04 PM EDT 02/28/2025 1:28 PM EDT Narrative [facility] - 02/28/2025 1:37 PM EDT Therapeutic decision making should be based on absolute values, rather than percentages. us Madonna Singleton MD LAB BLOOD ORDERABLES Final Resul t [facility] [address] [place] [address] * (ABNORMAL) Magnesium, Plasma (02/28/2025 1:04 PM EDT) Magnesium, Plasma 1.7(L) 1.9 - 2.4 mg/dL 02/28/2025 1:45 PM EDT [facility] Blood Venous blood specimen / Unknown Venipuncture / Unknown 02/28/2025 1:04 PM EDT 02/28/2025 1:14 PM EDT us Madonnaryan Singleton MD LAB BLOOD ORDERABLES Final Resul t [facility] [address] [place] [address] * (ABNORMAL) Basic Metabolic Panel, Plasma (02/28/2025 1:04 PM EDT) Glucose, Plasma 166(H) 74 - 99 mg/dL 02/28/2025 1:45 PM EDT [facility] BUN, Plasma 40(H) 8 - 23 mg/dL 02/28/2025 1:45 PM EDT [facility] Creatinine, Plasma 1.99(H) 0.60 - 1.10 mg/dL 02/28/2025 1:45 PM EDT [facility] BUN/Creatinine Ratio 20 02/28/2025 1:45 PM EDT [facility] Sodium, Plasma 130(L) 136 - 145 mmol/L 02/28/2025 1:45 PM EDT [facility] Potassium, Plasma 4.6 3.6 - 4.9 mmol/L 02/28/2025 1:45 PM EDT [facility] Chloride, Plasma 93(L) 97 - 107 mmol/L 02/28/2025 1:45 PM EDT [facility] CO2, Plasma 24 22 - 29 mmol/L 02/28/2025 1:45 PM EDT [facility] Anion Gap 13 6 - 16 mmol/L 02/28/2025 1:45 PM EDT [facility] Total Calcium, Plasma 9.3 8.9 - 10.2 mg/dL 02/28/2025 1:45 PM EDT [facility] eGFRcr 27.4 mL/min/1.7 3m*2 02/28/2025 1:45 PM EDT [facility] Comment:Reported eGFRcr in m L/min/1.73m2 is based the CKD-EPI 2020 equation that does not use a race coefficient. Blood Venous blood specimen / Unknown Venipuncture / Unknown 02/28/2025 1:04 PM EDT 02/28/2025 1:14 PM EDT us Madonna Singleton MD LAB BLOOD ORDERABLES Final Resul t Performing Organization Address City/[facility]/ZIP Co de Phone Number [facility] [address] [place] [address] * Phosphorus, Plasma (02/28/2025 1:04 PM EDT) [facility] Phosphorus, Plasma 4.1 2.5 - 4.5 mg/dL 02/28/2025 1:45 PM EDT [facility] Blood Venous blood specimen / Unknown Venipuncture / Unknown 02/28/2025 1:04 PM EDT 02/28/2025 1:14 PM EDT us Madonna Singleton MD LAB BLOOD ORDERABLES Final Resul t Performing Organization Address [facility] Co de Phone Number [facility] [address] [place] [address] * (ABNORMAL) POCT glucose meter (02/28/2025 12:17 PM EDT) [facility] POCT Glucose 161(H) 74 - 99 mg/dL [...] 02/28/2025 12:19 PM EDT [facility] Operations Examiner ID Malcolm Hidalgoedwardty 02/28/2025 12:19 PM EDT [facility] Device ID [id number] 02/28/2025 12:19 PM EDT [facility] Specimen Type POC Capillary 02/28/2025 12:19 PM EDT HEALTHCARE LAB Blood Capillary blood specimen / Unknown 02/28/2025 12:17 PM EDT 02/28/2025 12:19 PM EDT us Madonna Singleton MD LAB POINT OF CARE TE ST DOCKED DEVICE UNSOLICITED RESULTS Final Result Performing Organization Address [facility]/ZIP Co de Phone Number HEALTHCARE LAB [address] [place] [address] * (ABNORMAL) POCT glucose meter (02/27/2025 8:12 PM EDT) [facility] POCT Glucose 211(H) 74 - 99 mg/dL [...] Comment 02/27/2025 8:14 PM EDT HEALTHCARE LAB Operations Examiner ID Pat Young 02/27/2025 8:14 PM EDT HEALTHCARE LAB Device ID [id number] 02/27/2025 8:14 PM EDT HEALTHCARE LAB Specimen Type POC Capillary 02/27/2025 8:14 PM EDT [facility]ALTH[facility]ARE LAB Blood Capillary blood specimen / Unknown 02/27/2025 8:12 PM EDT 02/27/2025 8:14 PM EDT Madonna Singleton MD LAB POINT OF CARE TE ST DOCKED DEVICE UNSOLICITED RESULTS Final Result [facility] [address] [place] [address] * (ABNORMAL) POCT glucose meter (02/27/2025 5:20 PM EDT) [facility] POCT Glucose 171(H) 74 - 99 mg/dL [...] 02/27/2025 5:21 PM EDT [facility] Operations Examiner ID Nancy Hidalgo 02/27/2025 5:21 PM EDT [facility] Device ID [id number] 02/27/2025 5:21 PM EDT HEALTHCARE LAB Specimen Type POC Capillary 02/27/2025 5:21 PM EDT HEALTHCARE LAB Blood Capillary blood specimen / Unknown 02/27/2025 5:20 PM EDT 02/27/2025 5:21 PM EDT us Madonna Singleton MD LAB POINT OF CARE TE ST DOCKED DEVICE UNSOLICITED RESULTS Final Result [facility] [address] [place] [address] * (ABNORMAL) POCT glucose meter (02/27/2025 12:29 [...] Comment 02/27/2025 12:30 PM EDT HEALTHCARE LAB Operations Examiner ID Daniela Carroll 025 12:30 PM EDT HEALTHCARE LAB Device ID [id number] 02/27/2025 12:30 PM EDT HEALTHCARE LAB Specimen Type POC Capillary 02/27/2025 12:30 PM EDT HEALTH[facility]ARE LAB Blood Capillary blood specimen / Unknown 02/27/2025 12:29 PM EDT 02/27/2025 12:30 PM EDT us Ludy Hill MD LAB POINT OF CARE TE ST DOCKED DEVICE UNSOLICITED RESULTS Final Result [facility] [address] [place] [address] * XR Panorex (02/27/2025 12:13 PM EDT) [...] in the posterior aspect of tooth #31. [place] wear in tooth number 8, 9 and 23. No periapical lucency Procedure Note Lucas Cristobal MD - 02/27/2025 CLINICAL INDICATION: Odontogenic infection TECHNIQUE: XR PANOREX COMPARISON: None. FINDINGS: Rounded lucency in tooth #6. Aggressive destruction in the posterioraspect of tooth #31. [place] wear in tooth number 8, 9 and [...] 02/27/2025 8:21 AM EDT [facility] Operations Examiner ID Daniela Carroll 025 8:21 AM EDT [facility] Device ID [id number] 02/27/2025 8:21 AM EDT [facility] Specimen Type POC Capillary 02/27/2025 8:21 AM EDT HEALTH[facility]ARE LAB Blood Capillary blood specimen / Unknown 02/27/2025 8:19 AM EDT 02/27/2025 8:21 AM EDT us Ludy Hill MD LAB POINT OF CARE TE ST DOCKED DEVICE UNSOLICITED RESULTS Final Result [facility] [address] [place] [address] * (ABNORMAL) POCT glucose meter (02/26/2025 7:37 [...] Comment 02/26/2025 7:38 PM EDT HEALTHCARE LAB Operations Examiner ID Daniela Mcbride 02/26/2025 7:38 PM EDT HEALTHCARE LAB Device ID [id number] 02/26/2025 7:38 PM EDT [facility] Specimen Type POC Capillary 02/26/2025 7:38 PM EDT [facility] Blood Capillary blood specimen / Unknown 02/26/2025 7:37 PM EDT 02/26/2025 7:38 PM EDT us Ludy Hill MD LAB POINT OF CARE TE ST DOCKED DEVICE UNSOLICITED RESULTS Final Result [facility] [address] [place] [address] * (ABNORMAL) POCT glucose meter (02/26/2025 5:16 [...] Comment 02/26/2025 5:18 PM EDT HEALTHCARE LAB Operations Examiner ID Bassem Jay 02/26/2025 5:18 PM EDT HEALTHCARE LAB Device ID [id number] 02/26/2025 5:18 PM EDT HEALTHCARE LAB Specimen Type POC Capillary 02/26/2025 5:18 PM EDT HEALTHCARE LAB Blood Capillary blood specimen / Unknown 02/26/2025 5:16 PM EDT 02/26/2025 5:18 PM EDT us Ludy Hill MD LAB POINT OF CARE TE ST DOCKED DEVICE UNSOLICITED RESULTS Final Result Performing Organization Address City/State/[facility] Co de Phone Number HEALTHCARE LAB [address] [place] [address] * (ABNORMAL) POCT glucose meter (02/26/2025 1:08 PM EDT) [facility] Signature POCT Glucose 223(H) 74 - 99 [...] Comment 02/26/2025 1:09 PM EDT HEALTHCARE LAB Operations Examiner ID Bassem Jay 02/26/2025 1:09 PM EDT HEALTHCARE LAB Device ID [id number] 02/26/2025 1:09 PM EDT HEALTHCARE LAB Specimen Type POC Capillary 02/26/2025 1:09 PM EDT HEALTH[facility]ARE LAB Blood Capillary blood specimen / Unknown 02/26/2025 1:08 PM EDT 02/26/2025 1:09 PM EDT us Ludy Hill MD LAB POINT OF CARE TE ST DOCKED DEVICE UNSOLICITED RESULTS Final Result [facility] [address] [place] [address] * (ABNORMAL) POCT glucose meter (02/26/2025 9:45 [...] for testing. Comment 02/26/2025 9:46 AM EDT [facility] Operations Examiner ID Bassem Jay 02/26/2025 9:46 AM EDT [facility] Device ID [id number] 02/26/2025 9:46 AM EDT [facility] Specimen Type POC Capillary 02/26/2025 9:46 AM EDT [facility] Blood Capillary blood specimen / Unknown 02/26/2025 9:45 AM EDT 02/26/2025 9:46 AM EDT us Ludy Hill MD LAB POINT OF CARE TE ST DOCKED DEVICE UNSOLICITED RESULTS Final Result [facility] [address] [place] [address] * (ABNORMAL) Hemogram (CBC) (02/26/2025 4:51 AM EDT) WBC Count 7.59 3.70 - 10.30 10*3/uL LAB HEMATOLOGY METHOD 02/26/2025 5:25 AM EDT [facility] RBC Count 4.00 3.90 - 5.20 10*6/uL LAB HEMATOLOGY METHOD 02/26/2025 5:25 AM EDT [facility] HGB 10.3(L) 11.2 - 15.7 g/dL LAB HEMATOLOGY METHOD 02/26/2025 5:25 AM EDT [facility] HCT 32.3(L) 34.0 - 45.0 % LAB HEMATOLOGY METHOD 02/26/2025 5:25 AM EDT [facility] Platelet Count 375(H) 155 - 369 10*3/uL LAB HEMATOLOGY METHOD 02/26/2025 5:25 AM EDT [facility] MCV 81 79 - 98 fL LAB HEMATOLOGY METHOD 02/26/2025 5:25 AM EDT [facility] MCH 25.8(L) 26.0 - 32.0 pg LAB HEMATOLOGY METHOD 02/26/2025 5:25 AM EDT [facility] MCHC 31.9 30.7 - 35.5 g/dL LAB HEMATOLOGY METHOD 02/26/2025 5:25 AM EDT [facility] RDW 15.5(H) 11.5 - 14.5 % LAB HEMATOLOGY METHOD 02/26/2025 5:25 AM EDT [facility] MPV 8.9 8.8 - 12.5 fL LAB HEMATOLOGY METHOD 02/26/2025 5:25 AM EDT [facility] nRBC 0.0 <=0.0 per 100 WBCs LAB HEMATOLOGY METHOD 02/26/2025 5:25 AM EDT [facility] Blood Venous blood specimen / Unknown Venipuncture / Unknown 02/26/2025 4:51 AM EDT 02/26/2025 5:12 AM EDT us Ludy Hill MD LAB BLOOD ORDERABLES Final Resul t [facility] [address] [place] [address] * (ABNORMAL) Magnesium, Plasma (02/26/2025 4:51 AM EDT) Magnesium, Plasma 1.7(L) 1.9 - 2.4 mg/dL 02/26/2025 5:54 AM EDT [facility] Blood Venous blood specimen / Unknown Venipuncture / Unknown 02/26/2025 4:51 AM EDT 02/26/2025 5:13 AM EDT us Ludy Hill MD LAB BLOOD ORDERABLES Final Resul t [facility] [address] [place] [address] * (ABNORMAL) Renal function panel (02/26/2025 4:51 AM EDT) Glucose, Plasma 156(H) 74 - 99 mg/dL 02/26/2025 5:54 AM EDT [facility] BUN, Plasma 26(H) 8 - 23 mg/dL 02/26/2025 5:54 AM EDT [facility] Creatinine, Plasma 1.62(H) 0.60 - 1.10 mg/dL 02/26/2025 5:54 AM EDT [facility] BUN/Creatinine Ratio 16 02/26/2025 5:54 AM EDT [facility] Sodium, Plasma 133(L) 136 - 145 mmol/L 02/26/2025 5:54 AM EDT [facility] Potassium, Plasma 4.2 3.6 - 4.9 mmol/L 02/26/2025 5:54 AM EDT [facility] Chloride, Plasma 96(L) 97 - 107 mmol/L 02/26/2025 5:54 AM EDT [facility] CO2, Plasma 24 22 - 29 mmol/L 02/26/2025 5:54 AM EDT [facility] Anion Gap 13 6 - 16 mmol/L 02/26/2025 5:54 AM EDT [facility] Total Calcium, Plasma 8.9 8.9 - 10.2 mg/dL 02/26/2025 5:54 AM EDT [facility] Phosphorus, Plasma 3.8 2.5 - 4.5 mg/dL 02/26/2025 5:54 AM EDT [facility] Albumin, Plasma 3.5 3.5 - 5.2 g/dL 02/26/2025 5:54 AM EDT [facility] eGFRcr 35.1 mL/min/1.7 3m*2 02/26/2025 5:54 AM EDT [facility] Comment:Reported eGFRcr in m L/min/1.73m2 is based the CKD-EPI 2020 equation that does not use a race coefficient. Blood Venous blood specimen / Unknown Venipuncture / Unknown 02/26/2025 4:51 AM EDT 02/26/2025 5:13 AM EDT us Ludy Hill MD LAB BLOOD ORDERABLES Final Resul t Performing Organization Address City/[facility] Co de Phone Number [facility] [address] [place] [address] * (ABNORMAL) POCT glucose meter (02/25/2025 8:37 PM EDT) [facility] POCT Glucose 289(H) 74 - 99 mg/dL [...] Comment 02/25/2025 8:39 PM EDT HEALTHCARE LAB Operations Examiner ID Daniela Mcbride 02/25/2025 8:39 PM EDT HEALTHCARE LAB Device ID [id number] 02/25/2025 8:39 PM EDT HEALTHCARE LAB Specimen Type POC Capillary 02/25/2025 8:39 PM EDT HEALTHCARE LAB Blood Capillary blood specimen / Unknown 02/25/2025 8:37 PM EDT 02/25/2025 8:39 PM EDT us Ludy Hill MD LAB POINT OF CARE TE ST DOCKED DEVICE UNSOLICITED RESULTS Final Result Performing Organization Address City/[facility]/ZIP Co de Phone Number HEALTHCARE LAB [address] [place] [address] * ECG Adult (02/25/2025 6:38 PM EDT) Pathologist [facility] EKG DIAGNOSIS CLASS Abnormal MUSE ECG Ventricular Rate 68 BPM MUSE ECG Atrial Rate 68 BPM MUSE ECG ME Interval 198 ms MUSE ECG QRSD Interval 136 ms MUSE ECG QT Interval 450 ms MUSE ECG QTC Interval 478 ms MUSE ECG P [place] 71 degrees MUSE ECG R [place] 265 degrees MUSE ECG T Wave [place] 50 degrees MUSE ECG Diagnosis Sinus rhythm with marked sinus arrhythmia MUSE ECG Diagnosis Right bundle branch block MUSE ECG Diagnosis Abnormal ECG MUSE ECG Diagnosis MUSE ECG Diagnosis Confirmed by Karly Gracia ([id number]) on 02/26/2025 3:20:41 PM MUSE ECG 02/25/2025 6:38 PM EDT 02/26/2025 3:20 PM EDT us Ludy Hill MD ECG ORDERABLES Final Result Performing Organization Address City/[facility] Co de Phone Number MUSE ECG [...] 02/25/2025 5:30 PM EDT [facility] Operations Examiner ID Bassem Jay 02/25/2025 5:30 PM EDT HEALTHCARE LAB Device ID [id number] 02/25/2025 5:30 PM EDT HEALTHCARE LAB Specimen Type POC Capillary 02/25/2025 5:30 PM EDT HEALTHCARE LAB Blood Capillary blood specimen / Unknown 02/25/2025 5:28 PM EDT 02/25/2025 5:30 PM EDT us Ludy Hill MD LAB POINT OF CARE TE ST DOCKED DEVICE UNSOLICITED RESULTS Final Result [facility] [address] [place] [address] * (ABNORMAL) POCT glucose meter (02/25/2025 1:08 [...] Comment 02/25/2025 1:09 PM EDT HEALTHCARE LAB Operations Examiner ID Bassem Jay 02/25/2025 1:09 PM EDT HEALTHCARE LAB Device ID [id number] 02/25/2025 1:09 PM EDT HEALTHCARE LAB Specimen Type POC Capillary 02/25/2025 1:09 PM EDT HEALTHCARE LAB Blood Capillary blood specimen / Unknown 02/25/2025 1:08 PM EDT 02/25/2025 1:09 PM EDT us Ludy Hill MD LAB POINT OF CARE TE ST DOCKED DEVICE UNSOLICITED RESULTS Final Result [facility] [address] [place] [address] * ECG Adult (02/25/2025 12:27 PM EDT) EKG DIAGNOSIS CLASS Abnormal MUSE ECG Ventricular Rate 79 BPM MUSE ECG Atrial Rate 79 BPM MUSE ECG ME Interval 184 ms MUSE ECG QRSD Interval 134 ms MUSE ECG QT Interval 414 ms MUSE ECG QTC Interval 474 ms MUSE ECG R [place] 229 degrees MUSE ECG T Wave [place] 59 degrees MUSE ECG Diagnosis Sinus rhythm [...] POCT glucose meter (02/25/2025 8:21 AM EDT) [facility] POCT Glucose 128(H) 74 - 99 mg/dL [...] Comment 02/25/2025 8:22 AM EDT HEALTHCARE LAB Operations Examiner ID Bassem Jay 02/25/2025 8:22 AM EDT HEALTHCARE LAB Device ID [id number] 02/25/2025 8:22 AM EDT HEALTHCARE LAB Specimen Type POC Capillary 02/25/2025 8:22 AM EDT [facility] Blood Capillary blood specimen / Unknown 02/25/2025 8:21 AM EDT 02/25/2025 8:22 AM EDT Luda Ralph MD LAB POINT OF CARE TE ST DOCKED DEVICE UNSOLICITED RESULTS Final Result Performing Organization Address City/[facility]/ZIP Co de Phone Number [facility] [address] [place] [address] * (ABNORMAL) Cystatin C (02/25/2025 1:36 AM EDT) [facility] Cystatin C 2.37(H) 0.61 - 0.95 mg/L 02/25/2025 2:27 AM EDT [facility] Blood Venous blood specimen / Unknown Venipuncture / Unknown 02/25/2025 1:36 AM EDT 02/25/2025 1:57 AM EDT us Luda Ralph MD LAB BLOOD ORDERABLES Final R esult Performing Organization Address City/[facility]/ZIP Co de Phone Number [facility] [address] [place] [address] * (ABNORMAL) Basic Metabolic Panel, Plasma (02/25/2025 1:36 AM EDT) [facility] Glucose, Plasma 95 74 - 99 mg/dL 02/25/2025 2:27 AM EDT [facility] BUN, Plasma 34(H) 8 - 23 mg/dL 02/25/2025 2:27 AM EDT [facility] Creatinine, Plasma 1.62(H) 0.60 - 1.10 mg/dL 02/25/2025 2:27 AM EDT [facility] BUN/Creatinine Ratio 21 02/25/2025 2:27 AM EDT [facility] Sodium, Plasma 134(L) 136 - 145 mmol/L 02/25/2025 2:27 AM EDT [facility] Potassium, Plasma 3.9 3.6 - 4.9 mmol/L 02/25/2025 2:27 AM EDT [facility] Chloride, Plasma 97 97 - 107 mmol/L 02/25/2025 2:27 AM EDT [facility] CO2, Plasma 23 22 - 29 mmol/L 02/25/2025 2:27 AM EDT [facility] Anion Gap 14 6 - 16 mmol/L 02/25/2025 2:27 AM EDT [facility] Total Calcium, Plasma 8.9 8.9 - 10.2 mg/dL 02/25/2025 2:27 AM EDT [facility] eGFRcr 35.1 mL/min/1.7 3m*2 02/25/2025 2:27 AM EDT [facility] Comment:Reported eGFRcr in m L/min/1.73m2 is based the CKD-EPI 2020 equation that does not use a race coefficient. Blood Venous blood specimen / Unknown Venipuncture / Unknown 02/25/2025 1:36 AM EDT 02/25/2025 1:57 AM EDT us Luda Ralph MD LAB BLOOD ORDERABLES Final R esult [facility] [address] [place] [address] * (ABNORMAL) POCT glucose meter (02/24/2025 8:21 [...] Comment 02/24/2025 8:22 PM EDT HEALTHCARE LAB Operations Examiner ID Daniela Mcbride 02/24/2025 8:22 PM EDT HEALTHCARE LAB Device ID [id number] 02/24/2025 8:22 PM EDT HEALTHCARE LAB Specimen Type POC Capillary 02/24/2025 8:22 PM EDT HEALTHCARE LAB Blood Capillary blood specimen / Unknown 02/24/2025 8:21 PM EDT 02/24/2025 8:22 PM EDT Luda Ralph MD LAB POINT OF CARE TE ST DOCKED DEVICE UNSOLICITED RESULTS Final Result [facility] [address] [place] [address] * POCT glucose meter (02/24/2025 5:55 PM EDT) [facility] POCT Glucose 93 74 - 99 mg/dL [...] Comment 02/24/2025 5:56 PM EDT HEALTHCARE LAB Operations Examiner ID Delroy Bernal 02/24/2025 5:56 PM EDT HEALTHCARE LAB Device ID [id number] 02/24/2025 5:56 PM EDT [facility] Specimen Type POC Capillary 02/24/2025 5:56 PM EDT HEALTHCARE LAB Blood Capillary blood specimen / Unknown 02/24/2025 5:55 PM EDT 02/24/2025 5:56 PM EDT us Luda Ralph MD LAB POINT OF CARE TE ST DOCKED DEVICE UNSOLICITED RESULTS Final Result Performing Organization Address [facility] de Phone Number HEALTHCARE LAB [address] [place] [address] * (ABNORMAL) POCT glucose meter (02/24/2025 11:26 [...] for testing. Comment 02/24/2025 11:27 AM EDT [facility] Operations Examiner ID Delroy Bernal 02/24/2025 11:27 AM EDT [facility] Device ID [id number] 02/24/2025 11:27 AM EDT [facility] Specimen Type POC Capillary 02/24/2025 11:27 AM EDT [facility] Blood Capillary blood specimen / Unknown 02/24/2025 11:26 AM EDT 02/24/2025 11:27 AM EDT us Luda Ralph MD LAB POINT OF CARE TE ST DOCKED DEVICE UNSOLICITED RESULTS Final Result Performing Organization Address City/[facility] de Phone Number [facility] [address] [place] [address] * ME CRITICAL CARE, E/M 30-74 MINUTES (02/24/2025 7:08 [...] POCT glucose meter (02/24/2025 5:20 AM EDT) [facility] POCT Glucose 180(H) 74 - 99 mg/dL 02/24/2025 5:22 AM EDT [facility] Comment:Accuracy of a glucos e result [...] testing. Comment 02/24/2025 5:22 AM EDT [facility] Operations Examiner ID Daniela Mcbride 02/24/2025 5:22 AM EDT [facility] Device ID [id number] 02/24/2025 5:22 AM EDT [facility] Specimen Type POC Capillary 02/24/2025 5:22 AM EDT [facility] Blood Capillary blood specimen / Unknown 02/24/2025 5:20 AM EDT 02/24/2025 5:22 AM EDT Luda Ralph MD LAB POINT OF CARE TE ST DOCKED DEVICE UNSOLICITED RESULTS Final Result [facility] [address] [place] [address] * (ABNORMAL) Cystatin C (02/24/2025 1:01 AM EDT) Pathologist [facility] Cystatin C 2.5(H) 0.61 - 0.95 mg/L 02/24/2025 10:16 AM EDT [facility] Blood Venous blood specimen / Unknown Venipuncture / Unknown 02/24/2025 1:01 AM EDT 02/24/2025 1:06 AM EDT us Luda Ralph MD LAB BLOOD ORDERABLES Final R esult [facility] [address] [place] [id number] * (ABNORMAL) CBC and Differential (02/24/2025 1:01 AM EDT) Pathologist [facility] WBC Count 9.39 3.70 - 10.30 10*3/uL LAB HEMATOLOGY METHOD 02/24/2025 1:16 AM EDT [facility] RBC Count 3.53(L) 3.90 - 5.20 10*6/uL LAB HEMATOLOGY METHOD 02/24/2025 1:16 AM EDT [facility] HGB 9.1(L) 11.2 - 15.7 g/dL LAB HEMATOLOGY METHOD 02/24/2025 1:16 AM EDT [facility] HCT 28.3(L) 34.0 - 45.0 % LAB HEMATOLOGY METHOD 02/24/2025 1:16 AM EDT [facility] Platelet Count 315 155 - 369 10*3/uL LAB HEMATOLOGY METHOD 02/24/2025 1:16 AM EDT [facility] MCV 80 79 - 98 fL LAB HEMATOLOGY METHOD 02/24/2025 1:16 AM EDT [facility] MCH 25.8(L) 26.0 - 32.0 pg LAB HEMATOLOGY METHOD 02/24/2025 1:16 AM EDT [facility] MCHC 32.2 30.7 - 35.5 g/dL LAB HEMATOLOGY METHOD 02/24/2025 1:16 AM EDT [facility] RDW 15.2(H) 11.5 - 14.5 % LAB HEMATOLOGY METHOD 02/24/2025 1:16 AM EDT [facility] MPV 9.3 8.8 - 12.5 fL LAB HEMATOLOGY METHOD 02/24/2025 1:16 AM EDT [facility] nRBC 0.0 <=0.0 per 100 WBCs LAB HEMATOLOGY METHOD 02/24/2025 1:16 AM EDT [facility] Differential Type Automated LAB HEMATOLOGY METHOD 02/24/2025 1:16 AM EDT [facility] Neutrophils % 71 % LAB HEMATOLOGY METHOD 02/24/2025 1:16 AM EDT [facility] Lymphocytes % 15 % LAB HEMATOLOGY METHOD 02/24/2025 1:16 AM EDT [facility] Monocytes % 13 % LAB HEMATOLOGY METHOD 02/24/2025 1:16 AM EDT [facility] Eosinophils % 0 % LAB HEMATOLOGY METHOD 02/24/2025 1:16 AM EDT [facility] Basophils % 0 % LAB HEMATOLOGY METHOD 02/24/2025 1:16 AM EDT [facility] Immature Granulocytes % 1 % LAB HEMATOLOGY METHOD 02/24/2025 1:16 AM EDT [facility] Neutrophils Absolute 6.64(H) 1.60 - 6.10 10*3/uL LAB HEMATOLOGY METHOD 02/24/2025 1:16 AM EDT [facility] Lymphocytes Absolute 1.40 1.20 - 3.90 10*3/uL LAB HEMATOLOGY METHOD 02/24/2025 1:16 AM EDT [facility] Monocytes Absolute 1.25(H) 0.30 - 0.90 10*3/uL LAB HEMATOLOGY METHOD 02/24/2025 1:16 AM EDT [facility] Eosinophils Absolute 0.02 0.00 - 0.50 10*3/uL LAB HEMATOLOGY METHOD 02/24/2025 1:16 AM EDT [facility] Basophils Absolute 0.02 0.00 - 0.10 10*3/uL LAB HEMATOLOGY METHOD 02/24/2025 1:16 AM EDT [facility] Immature Granulocytes Absolute 0.06 0.00 - 0.06 10*3/uL LAB HEMATOLOGY METHOD 02/24/2025 1:16 AM EDT [facility] Blood Venous blood specimen / Unknown Venipuncture / Unknown 02/24/2025 1:01 AM EDT 02/24/2025 1:06 AM EDT Narrative [facility] - 02/24/2025 1:16 AM EDT Therapeutic decision making should be based on absolute values, rather than percentages. us Luda Ralph MD LAB BLOOD ORDERABLES Final R esult [facility] [address] [place] [address] * (ABNORMAL) Comprehensive metabolic panel (02/24/2025 1:01 AM EDT) Glucose, Plasma 152(H) 74 - 99 mg/dL 02/24/2025 1:44 AM EDT [facility] BUN, Plasma 40(H) 8 - 23 mg/dL 02/24/2025 1:44 AM EDT [facility] Creatinine, Plasma 2.04(H) 0.60 - 1.10 mg/dL 02/24/2025 1:44 AM EDT [facility] BUN/Creatinine Ratio 20 02/24/2025 1:44 AM EDT [facility] Sodium, Plasma 132(L) 136 - 145 mmol/L 02/24/2025 1:44 AM EDT [facility] Potassium, Plasma 4.9 3.6 - 4.9 mmol/L 02/24/2025 1:44 AM EDT [facility] Chloride, Plasma 97 97 - 107 mmol/L 02/24/2025 1:44 AM EDT [facility] CO2, Plasma 22 22 - 29 mmol/L 02/24/2025 1:44 AM EDT [facility] Anion Gap 13 6 - 16 mmol/L 02/24/2025 1:44 AM EDT [facility] Total Calcium, Plasma 8.6(L) 8.9 - 10.2 mg/dL 02/24/2025 1:44 AM EDT [facility] Total Protein 6.9 6.3 - 7.9 g/dL 02/24/2025 1:44 AM EDT [facility] Albumin, Plasma 3.3(L) 3.5 - 5.2 g/dL 02/24/2025 1:44 AM EDT [facility] AST, Plasma 16 10 - 35 U/L 02/24/2025 1:44 AM EDT [facility] Comment:Hemolyzed, result ma y be falsely increased. ALT, Plasma 15 10 - 35 U/L 02/24/2025 1:44 AM EDT [facility] Alkaline Phosphatase, Plasma 105 46 - 142 U/L 02/24/2025 1:44 AM EDT [facility] Total Bilirubin, Plasma <0.2(L) 0.2 - 1.1 mg/dL 02/24/2025 1:44 AM EDT [facility] eGFRcr 26.6 mL/min/1.7 3m*2 02/24/2025 1:44 AM EDT [facility] Comment:Reported eGFRcr in m L/min/1.73m2 is based the CKD-EPI 2020 equation that does not use a race coefficient. Blood Venous blood specimen / Unknown Venipuncture / Unknown 02/24/2025 1:01 AM EDT 02/24/2025 1:06 AM EDT Luda Ralph MD LAB BLOOD ORDERABLES Final R [facility] Performing Organization Address City/[facility]/ZIP Co de Phone Number [facility] [address] [place] [address] * (ABNORMAL) Ionized calcium, whole blood (02/24/2025 1:01 AM EDT) Ionized Calcium, Whole Blood 4.4(L) 4.6 - 5.1 mg/dL LAB HEMATOLOGY METHOD 02/24/2025 1:14 AM EDT [facility] Blood Venous blood specimen / Unknown Venipuncture / Unknown 02/24/2025 1:01 AM EDT 02/24/2025 1:13 AM EDT us Luda Ralph MD LAB BLOOD ORDERABLES Final R esult Performing Organization Address City/[facility]/ZIP Co de Phone Number [facility] [address] [place] [address] * Phosphorus (02/24/2025 1:01 AM EDT) Phosphorus, Plasma 3.0 2.5 - 4.5 mg/dL 02/24/2025 1:44 AM EDT [facility] Blood Venous blood specimen / Unknown Venipuncture / Unknown 02/24/2025 1:01 AM EDT 02/24/2025 1:06 AM EDT Luda Ralph MD LAB BLOOD ORDERABLES Final R esult Performing Organization Address City/[facility] Co de Phone Number [facility] [address] [place] [address] * Magnesium, Plasma (02/24/2025 1:01 AM EDT) Magnesium, Plasma 2.2 1.9 - 2.4 mg/dL 02/24/2025 1:44 AM EDT [facility] Blood Venous blood specimen / Unknown Venipuncture / Unknown 02/24/2025 1:01 AM EDT 02/24/2025 1:06 AM EDT Luda Ralph MD LAB BLOOD ORDERABLES Final R esult Performing Organization Address [facility] [place] [address] * (ABNORMAL) Procalcitonin (02/24/2025 1:01 AM EDT) Procalcitonin, Plasma 0.12(H) <0.09 ng/mL 02/24/2025 1:44 AM EDT [facility] Blood Venous blood specimen / Unknown Venipuncture / Unknown 02/24/2025 1:01 AM EDT 02/24/2025 1:06 AM EDT Narrative [facility] - 02/24/2025 1:44 AM EDT [...] predict 28 day mortality risk. Please consult [email or web address]-[email or web address] for more information. Test performed at [facility]. us Luda Ralph MD LAB BLOOD ORDERABLES Final R esult [facility] [address] [place] [address] * (ABNORMAL) Blood gas panel, venous (02/24/2025 1:01 AM EDT) pH, Venous 7.43 7.32 - 7.43 LAB HEMATOLOGY METHOD 02/24/2025 1:19 AM EDT [facility] pCO2, Venous 40 37 - 52 mmHg LAB HEMATOLOGY METHOD 02/24/2025 1:19 AM EDT [facility] pO2, Venous 143(H) 25 - 40 mmHg LAB HEMATOLOGY METHOD 02/24/2025 1:19 AM EDT [facility] SO2, Measured, Venous 98(H) 65 - 80 % LAB HEMATOLOGY METHOD 02/24/2025 1:19 AM EDT [facility] Base Excess, Venous 1.9 -2.0 - 3.0 mmol/L LAB HEMATOLOGY METHOD 02/24/2025 1:19 AM EDT [facility] Bicarbonate, Calculated, Venous 27(H) 22 - 26 mmol/L LAB HEMATOLOGY METHOD 02/24/2025 1:19 AM EDT [facility] Hematocrit, Whole Blood 27.7(L) 34.0 - 45.0 % LAB HEMATOLOGY METHOD 02/24/2025 1:19 AM EDT [facility] Sodium, Whole Blood 132(L) 136 - 145 mmol/L LAB HEMATOLOGY METHOD 02/24/2025 1:19 AM EDT [facility] Potassium, Whole Blood 4.3 3.6 - 4.9 mmol/L LAB HEMATOLOGY METHOD 02/24/2025 1:19 AM EDT [facility] Chloride, Whole Blood 99 97 - 107 mmol/L LAB HEMATOLOGY METHOD 02/24/2025 1:19 AM EDT [facility] Glucose, Whole Blood 154(H) 74 - 99 mg/dL LAB HEMATOLOGY METHOD 02/24/2025 1:19 AM EDT [facility] Lactate, Venous, Whole Blood 0.9 0.5 - 2.2 mmol/L LAB HEMATOLOGY METHOD 02/24/2025 1:19 AM EDT [facility] Ionized Calcium, Whole Blood 4.2(L) 4.6 - 5.1 mg/dL LAB HEMATOLOGY METHOD 02/24/2025 1:19 AM EDT [facility] Blood Venous blood specimen / Unknown Venipuncture / Unknown 02/24/2025 1:01 AM EDT 02/24/2025 1:13 AM EDT us Luda Ralph MD LAB BLOOD ORDERABLES Final R esult [facility] [address] [place] [address] * (ABNORMAL) POCT glucose meter (02/24/2025 1:00 [...] Comment 02/24/2025 1:02 AM EDT [facility] Operations Examiner ID Daniela Mcbride 02/24/2025 1:02 AM EDT [facility] Device ID [id number] 02/24/2025 1:02 AM EDT [facility] Specimen Type POC Capillary 02/24/2025 1:02 AM EDT [facility] Blood Capillary blood specimen / Unknown 02/24/2025 1:00 AM EDT 02/24/2025 1:02 AM EDT us Luda Ralph MD LAB POINT OF CARE TE ST DOCKED DEVICE UNSOLICITED RESULTS Final Result Performing Organization Address City/[facility]/ZIP Co de Phone Number [facility] [address] [place] [address] * (ABNORMAL) POCT glucose meter (02/23/2025 5:07 [...] Comment 02/23/2025 5:08 PM EDT [facility] Operations Examiner ID WetzoldTemi 02/23/2025 5:08 PM EDT [facility] Device ID [id number] 02/23/2025 5:08 PM EDT [facility] Specimen Type POC Capillary 02/23/2025 5:08 PM EDT [facility] Blood Capillary blood specimen / Unknown 02/23/2025 5:07 PM EDT 02/23/2025 5:08 PM EDT us Luda Ralph MD LAB POINT OF CARE TE ST DOCKED DEVICE UNSOLICITED RESULTS Final Result Performing Organization Address City/[facility]/ZIP Co de Phone Number [facility] [address] [place] [address] * Sodium, urine, random (02/23/2025 3:12 PM EDT) Sodium, Urine 31 mmol/L 02/23/2025 4:03 PM EDT [facility] Urine Urine specimen from urinary conduit / Unknown Non-blood Collection / Unknown 02/23/2025 3:12 PM EDT 02/23/2025 3:24 PM EDT us Luda Ralph MD LAB URINE ORDERABLES Final R esult [facility] [address] [place] [address] * Osmolality, urine (02/23/2025 3:12 PM EDT) Osmolality, Urine 408 50 - 1,200 mOsm/kg 02/23/2025 3:59 PM EDT [facility] Urine Urine specimen from urinary conduit / Unknown Non-blood Collection / Unknown 02/23/2025 3:12 PM EDT 02/23/2025 3:23 PM EDT us Luda Ralph MD LAB URINE ORDERABLES [place] [address] * Osmolality (02/23/2025 3:04 PM EDT) Osmolality, Serum 289 280 - 301 mOsm/Kg 02/23/2025 4:11 PM EDT [facility] Blood Venous blood specimen / Unknown Venipuncture / Unknown 02/23/2025 3:04 PM EDT 02/23/2025 3:13 PM EDT us Luda Ralph MD LAB BLOOD ORDERABLES Final R esult Performing Organization Address City/[facility]/ZIP Co de Phone Number [facility] [address] [place] [address] * (ABNORMAL) Cystatin C (02/23/2025 3:04 PM EDT) Cystatin C 2.32(H) 0.61 - 0.95 mg/L 02/23/2025 3:44 PM EDT [facility] Blood Venous blood specimen / Unknown Venipuncture / Unknown 02/23/2025 3:04 PM EDT 02/23/2025 3:13 PM EDT us Luda Ralph MD LAB BLOOD ORDERABLES Final R esult Performing Organization Address City/[facility]/ZIP Co de Phone Number [facility] [address] [place] [address] * (ABNORMAL) Sodium (02/23/2025 3:04 PM EDT) [facility] Sodium, Plasma 129(L) 136 - 145 mmol/L 02/23/2025 3:44 PM EDT [facility] Blood Venous blood specimen / Unknown Venipuncture / Unknown 02/23/2025 3:04 PM EDT 02/23/2025 3:13 PM EDT Luda Ralph MD LAB BLOOD ORDERABLES Final R esult [facility] [address] [place] [address] * (ABNORMAL) POCT glucose meter (02/23/2025 11:43 AM EDT) [facility] POCT Glucose 222(H) 74 - 99 mg/dL [...] Comment 02/23/2025 11:44 AM EDT [facility] Operations Examiner ID Temi Mao 02/23/2025 11:44 AM EDT [facility] Device ID [id number] 02/23/2025 11:44 AM EDT [facility] Specimen Type POC Capillary 02/23/2025 11:44 AM EDT [facility] Blood Capillary blood specimen / Unknown 02/23/2025 11:43 AM EDT 02/23/2025 11:44 AM EDT us Luda Ralph MD LAB POINT OF CARE TE ST DOCKED DEVICE UNSOLICITED RESULTS Final Result Performing Organization Address City/[facility]/ZIP Co de Phone Number [facility] [address] [place] [address] * Streptococcus pneumoniae and Legionella Urinary Antigen (02/23/2025 11:05 AM EDT) [facility] Legionella pneumophila serogroup 1 Antigen Result (Urine) Negative Negative 02/24/2025 7:01 AM EDT [facility] Streptococcus pneumoniae Antigen Result (Urine) Negative Negative 02/24/2025 7:01 AM EDT [facility] Urine Urine specimen obtained by clean catch procedure / Unknown Non-blood Collection / Unknown 02/23/2025 11:05 AM EDT 02/23/2025 11:16 AM EDT us Luda Ralph MD LAB MICROBIOLOGY - GENERAL O RDERABLES Final Result [facility] [address] [place] [address] * ME CRITICAL CARE, E/M 30-74 MINUTES (02/23/2025 9:10 [...] Plasma 25.9 ug/mL 02/23/2025 9:20 AM EDT [facility] Blood Venous blood specimen / Unknown Venipuncture / Unknown 02/23/2025 8:34 AM EDT 02/23/2025 8:50 AM EDT Luda Ralph MD LAB BLOOD ORDERABLES Final R esult Performing Organization Address City/[facility]/ZIP Co de Phone Number [facility] [address] [place] [address] * (ABNORMAL) Sodium (02/23/2025 8:34 AM EDT) Sodium, Plasma 127(L) 136 - 145 mmol/L 02/23/2025 9:20 AM EDT [facility] Blood Venous blood specimen / Unknown Venipuncture / Unknown 02/23/2025 8:34 AM EDT 02/23/2025 8:50 AM EDT Luda Ralph MD LAB BLOOD ORDERABLES Final R esult Performing Organization Address City/[facility] Co de Phone Number [facility] [address] [place] [address] * (ABNORMAL) Blood gas panel, venous (02/23/2025 8:34 AM EDT) pH, Venous 7.39 7.32 - 7.43 LAB HEMATOLOGY METHOD 02/23/2025 8:52 AM EDT [facility] pCO2, Venous 44 37 - 52 mmHg LAB HEMATOLOGY METHOD 02/23/2025 8:52 AM EDT [facility] pO2, Venous 43(H) 25 - 40 mmHg LAB HEMATOLOGY METHOD 02/23/2025 8:52 AM EDT [facility] SO2, Measured, Venous 77 65 - 80 % LAB HEMATOLOGY METHOD 02/23/2025 8:52 AM EDT [facility] Base Excess, Venous 1.6 -2.0 - 3.0 mmol/L LAB HEMATOLOGY METHOD 02/23/2025 8:52 AM EDT [facility] Bicarbonate, Calculated, Venous 27(H) 22 - 26 mmol/L LAB HEMATOLOGY METHOD 02/23/2025 8:52 AM EDT [facility] Hematocrit, Whole Blood 27.4(L) 34.0 - 45.0 % LAB HEMATOLOGY METHOD 02/23/2025 8:52 AM EDT [facility] Sodium, Whole Blood 128(L) 136 - 145 mmol/L LAB HEMATOLOGY METHOD 02/23/2025 8:52 AM EDT [facility] Potassium, Whole Blood 4.7 3.6 - 4.9 mmol/L LAB HEMATOLOGY METHOD 02/23/2025 8:52 AM EDT [facility] Chloride, Whole Blood 93(L) 97 - 107 mmol/L LAB HEMATOLOGY METHOD 02/23/2025 8:52 AM EDT [facility] Glucose, Whole Blood 242(H) 74 - 99 mg/dL LAB HEMATOLOGY METHOD 02/23/2025 8:52 AM EDT [facility] Lactate, Venous, Whole Blood 1.1 0.5 - 2.2 mmol/L LAB HEMATOLOGY METHOD 02/23/2025 8:52 AM EDT [facility] Ionized Calcium, Whole Blood 4.6 4.6 - 5.1 mg/dL LAB HEMATOLOGY METHOD 02/23/2025 8:52 AM EDT [facility] Blood Venous blood specimen / Unknown Venipuncture / Unknown 02/23/2025 8:34 AM EDT 02/23/2025 8:50 AM EDT us Luda Ralph MD LAB BLOOD ORDERABLES Final R esult [facility] [address] [place] [address] * (ABNORMAL) POCT glucose meter (02/23/2025 5:13 AM EDT) [facility] POCT Glucose 255(H) 74 - 99 mg/dL 02/23/2025 5:14 AM EDT [facility] Comment:Accuracy of a glucos e [...] Comment 02/23/2025 5:14 AM EDT [facility] Operations Examiner ID Daniela Mcbride 02/23/2025 5:14 AM EDT [facility] Device ID [id number] 02/23/2025 5:14 AM EDT [facility] Specimen Type POC Capillary 02/23/2025 5:14 AM EDT [facility] Blood Capillary blood specimen / Unknown 02/23/2025 5:13 AM EDT 02/23/2025 5:14 AM EDT us Luda Ralph MD LAB POINT OF CARE TE ST DOCKED DEVICE UNSOLICITED RESULTS Final Result Performing Organization Address City/[facility] Co de Phone Number [facility] [address] [place] [address] * (ABNORMAL) POCT glucose meter (02/23/2025 2:11 AM EDT) [facility] POCT Glucose 224(H) 74 - 99 mg/dL [...] Comment 02/23/2025 2:12 AM EDT [facility] Operations Examiner ID Daniela Mcbride 02/23/2025 2:12 AM EDT [facility] Device ID [id number] 02/23/2025 2:12 AM EDT [facility] Specimen Type POC Capillary 02/23/2025 2:12 AM EDT [facility] Blood Capillary blood specimen / Unknown 02/23/2025 2:11 AM EDT 02/23/2025 2:12 AM EDT us Luda Ralph MD LAB POINT OF CARE TE ST DOCKED DEVICE UNSOLICITED RESULTS Final Result Performing Organization Address City/[facility] Co de Phone Number [facility] [address] [place] [address] * (ABNORMAL) Methicillin Resistant Staphylococcus aureus (MRSA) by PCR (02/23/2025 2:05 AM EDT) Methicillin Resistant Staphylococcus aureus (MRSA) by PCR Detected( A) Not Detected 02/23/2025 4:[address] [facility] Swab Both anterior nares / Unknown Non-blood Collection / Unknown 02/23/2025 2:05 AM EDT 02/23/2025 3:06 AM EDT Narrative [facility] - 02/23/2025 4:19 AM EDT [...] MICROBIOLOGY - GENERAL O RDERABLES Final Result [facility] [address] [place] [address] * (ABNORMAL) Nasopharyngeal Respiratory Panel (02/23/2025 2:05 AM EDT) Pathologist [facility] Human Rhinovirus/Ent erovirus PCR Result Detected( A) Not Detected 02/23/2025 5:[address] [facility] Swab Nasopharyngeal structure / Unknown Non-blood Collection / Unknown 02/23/2025 2:05 AM EDT 02/23/2025 3:06 AM EDT Narrative [facility] - 02/23/2025 5:07 AM EDT [...] Respiratory PCR Panel is performed using the [employer] instrument. This test is FDA approved for use with Nasopharyngeal swabs only. This test is used for clinical purposes. It should not be regarded as investigational or for research. The [facility] Clinical Microbiology Laboratory is certified under the Clinical Laboratory Improvement Amendments of 1988 (CLIA-88) as qualified to perform high complexity clinical laboratory testing. Luda Ralph MD LAB MICROBIOLOGY - GENERAL O RDERABLES Final Result Performing Organization Address [facility] Co de Phone Number [facility] [address] [place] [address] * Anti Xa Level Low Molecular Weight (02/23/2025 2:04 AM EDT) Anti Xa Level Low Molecular Weight Heparin 1.12 <2.00 IU/mL LAB COAGULATION METHOD 02/23/2025 2:44 AM EDT [facility] Blood Venous blood specimen / Unknown Venipuncture / Unknown 02/23/2025 2:04 AM EDT 02/23/2025 2:24 AM EDT Narrative [facility] - 02/23/2025 2:44 AM EDT Therapeutic Range: LMWH enoxaparin 1mg/kg/dose, 12hrs - peak (3-5 hours after dose): 0.5 - 1.0 IU/mL LMWH enoxaparin 1.5mg/kg/dose, 24hrs - peak (3-5 hours after dose): 1.0 - 2.0 IU/mL LMWH enoxaparin prophylaxis: Not established Luda Ralph MD LAB BLOOD ORDERABLES Final R esult Performing Organization Address [facility] Co de Phone Number [facility] [address] [place] [address] * (ABNORMAL) Troponin T, High Sensitivity, 2 Hour, Plasma (02/23/2025 2:04 AM EDT) Troponin T, High Sensitivity, 2 Hour 37(H) <14 ng/L 02/23/2025 2:52 AM EDT [facility] Troponin Delta Interpretation Not Calculated 02/23/2025 2:52 AM EDT [facility] Comment:Specimen not collect ed within acceptable timeframe. Delta will not be calculated. Blood Venous blood specimen / Unknown Venipuncture / Unknown 02/23/2025 2:04 AM EDT 02/23/2025 2:24 AM EDT Luda Ralph MD LAB BLOOD ORDERABLES Final R esult Performing Organization Address City/[facility]/ZIP Co de Phone Number [facility] [address] [place] [address] * (ABNORMAL) Sodium (02/23/2025 2:04 AM EDT) Sodium, Plasma 125(L) 136 - 145 mmol/L 02/23/2025 2:45 AM EDT [facility] Blood Venous blood specimen / Unknown Venipuncture / Unknown 02/23/2025 2:04 AM EDT 02/23/2025 2:24 AM EDT Luda Ralph MD LAB BLOOD ORDERABLES Final R esult Performing Organization Address City/[facility]/ZIP Co de Phone Number [facility] [address] [place] [address] * (ABNORMAL) Blood gas panel, venous (02/23/2025 2:04 AM EDT) pH, Venous 7.39 7.32 - 7.43 LAB HEMATOLOGY METHOD 02/23/2025 2:29 AM EDT [facility] pCO2, Venous 43 37 - 52 mmHg LAB HEMATOLOGY METHOD 02/23/2025 2:29 AM EDT [facility] pO2, Venous 71(H) 25 - 40 mmHg LAB HEMATOLOGY METHOD 02/23/2025 2:29 AM EDT [facility] SO2, Measured, Venous 94(H) 65 - 80 % LAB HEMATOLOGY METHOD 02/23/2025 2:29 AM EDT [facility] Base Excess, Venous 0.7 -2.0 - 3.0 mmol/L LAB HEMATOLOGY METHOD 02/23/2025 2:29 AM EDT [facility] Bicarbonate, Calculated, Venous 26 22 - 26 mmol/L LAB HEMATOLOGY METHOD 02/23/2025 2:29 AM EDT [facility] Hematocrit, Whole Blood 26.1(L) 34.0 - 45.0 % LAB HEMATOLOGY METHOD 02/23/2025 2:29 AM EDT [facility] Sodium, Whole Blood 127(L) 136 - 145 mmol/L LAB HEMATOLOGY METHOD 02/23/2025 2:29 AM EDT [facility] Potassium, Whole Blood 4.7 3.6 - 4.9 mmol/L LAB HEMATOLOGY METHOD 02/23/2025 2:29 AM EDT [facility] Chloride, Whole Blood 93(L) 97 - 107 mmol/L LAB HEMATOLOGY METHOD 02/23/2025 2:29 AM EDT [facility] Glucose, Whole Blood 221(H) 74 - 99 mg/dL LAB HEMATOLOGY METHOD 02/23/2025 2:29 AM EDT [facility] Lactate, Venous, Whole Blood 0.9 0.5 - 2.2 mmol/L LAB HEMATOLOGY METHOD 02/23/2025 2:29 AM EDT [facility] Ionized Calcium, Whole Blood 3.7(L) 4.6 - 5.1 mg/dL LAB HEMATOLOGY METHOD 02/23/2025 2:29 AM EDT [facility] Blood Venous blood specimen / Unknown Venipuncture / Unknown 02/23/2025 2:04 AM EDT 02/23/2025 2:25 AM EDT Luda Ralph MD LAB BLOOD ORDERABLES Final R esult [facility] [address] [place] [address] * Vancomycin, random (02/23/2025 12:05 AM EDT) Vancomycin, Random, Plasma <4.0 ug/mL 02/23/2025 12:44 AM EDT [facility] Blood Venous blood specimen / Unknown Venipuncture / Unknown 02/23/2025 12:05 AM EDT 02/23/2025 12:16 AM EDT Luda Ralph MD LAB BLOOD ORDERABLES Final R esult Performing Organization Address City/[facility]/ZIP Co de Phone Number [facility] [address] [place] [address] * (ABNORMAL) Sodium (02/23/2025 12:05 AM EDT) Sodium, Plasma 127(L) 136 - 145 mmol/L 02/23/2025 12:44 AM EDT [facility] Blood Venous blood specimen / Unknown Venipuncture / Unknown 02/23/2025 12:05 AM EDT 02/23/2025 12:17 AM EDT us Luda Ralph MD LAB BLOOD ORDERABLES Final R esult Performing Organization Address [facility]/ZIP Co de Phone Number [facility] [address] [place] [address] * (ABNORMAL) Blood gas panel, venous (02/23/2025 12:05 AM EDT) pH, Venous 7.33 7.32 - 7.43 LAB HEMATOLOGY METHOD 02/23/2025 12:18 AM EDT [facility] pCO2, Venous 50 37 - 52 mmHg LAB HEMATOLOGY METHOD 02/23/2025 12:18 AM EDT [facility] pO2, Venous 60(H) 25 - 40 mmHg LAB HEMATOLOGY METHOD 02/23/2025 12:18 AM EDT [facility] SO2, Measured, Venous 89(H) 65 - 80 % LAB HEMATOLOGY METHOD 02/23/2025 12:18 AM EDT [facility] Base Excess, Venous 0.3 -2.0 - 3.0 mmol/L LAB HEMATOLOGY METHOD 02/23/2025 12:18 AM EDT [facility] Bicarbonate, Calculated, Venous 27(H) 22 - 26 mmol/L LAB HEMATOLOGY METHOD 02/23/2025 12:18 AM EDT [facility] Hematocrit, Whole Blood 28.9(L) 34.0 - 45.0 % LAB HEMATOLOGY METHOD 02/23/2025 12:18 AM EDT [facility] Sodium, Whole Blood 128(L) 136 - 145 mmol/L LAB HEMATOLOGY METHOD 02/23/2025 12:18 AM EDT [facility] Potassium, Whole Blood 4.7 3.6 - 4.9 mmol/L LAB HEMATOLOGY METHOD 02/23/2025 12:18 AM EDT [facility] Chloride, Whole Blood 93(L) 97 - 107 mmol/L LAB HEMATOLOGY METHOD 02/23/2025 12:18 AM EDT [facility] Glucose, Whole Blood 177(H) 74 - 99 mg/dL LAB HEMATOLOGY METHOD 02/23/2025 12:18 AM EDT [facility] Lactate, Venous, Whole Blood 1.7 0.5 - 2.2 mmol/L LAB HEMATOLOGY METHOD 02/23/2025 12:18 AM EDT [facility] Ionized Calcium, Whole Blood 4.4(L) 4.6 - 5.1 mg/dL LAB HEMATOLOGY METHOD 02/23/2025 12:18 AM EDT [facility] Blood Venous blood specimen / Unknown Venipuncture / Unknown 02/23/2025 12:05 AM EDT 02/23/2025 12:16 AM EDT Luda Ralph MD LAB BLOOD ORDERABLES Final R esult Performing Organization Address City/[facility]/ZIP Co de Phone Number [facility] [address] [place] [address] * (ABNORMAL) Troponin T, High Sensitivity, 0 Hour Plasma, Reflex to 2 Hour (02/23/2025 12:05 AM EDT) Troponin T, High Sensitivity, 0 Hour 40(H) <14 ng/L 02/23/2025 12:44 AM EDT [facility] Blood Venous blood specimen / Unknown Venipuncture / Unknown 02/23/2025 12:05 AM EDT 02/23/2025 12:17 AM EDT Luda Ralph MD LAB BLOOD ORDERABLES Final R esult [facility] [address] [place] [address] * (ABNORMAL) Phosphorus, Plasma (02/23/2025 12:05 AM EDT) Phosphorus, Plasma 2.4(L) 2.5 - 4.5 mg/dL 02/23/2025 12:44 AM EDT [facility] Blood Venous blood specimen / Unknown Venipuncture / Unknown 02/23/2025 12:05 AM EDT 02/23/2025 12:17 AM EDT Bobby Parra MD LAB BLOOD ORDERABLES Final R esult Performing Organization Address [facility]/ZIP Co de Phone Number [facility] [address] [place] [address] * (ABNORMAL) Magnesium, Plasma (02/23/2025 12:05 AM EDT) Magnesium, Plasma 2.5(H) 1.9 - 2.4 mg/dL 02/23/2025 12:44 AM EDT [facility] Blood Venous blood specimen / Unknown Venipuncture / Unknown 02/23/2025 12:05 AM EDT 02/23/2025 12:17 AM EDT Bobby Parra MD LAB BLOOD ORDERABLES Final R esult Performing Organization Address City/[facility] Co de Phone Number [facility] [address] [place] [address] * (ABNORMAL) Basic Metabolic Panel, Plasma (02/23/2025 12:05 AM EDT) Glucose, Plasma 180(H) 74 - 99 mg/dL 02/23/2025 12:44 AM EDT [facility] BUN, Plasma 42(H) 8 - 23 mg/dL 02/23/2025 12:44 AM EDT [facility] Creatinine, Plasma 2.26(H) 0.60 - 1.10 mg/dL 02/23/2025 12:44 AM EDT [facility] BUN/Creatinine Ratio 19 02/23/2025 12:44 AM EDT [facility] Sodium, Plasma 127(L) 136 - 145 mmol/L 02/23/2025 12:44 AM EDT [facility] Potassium, Plasma 4.9 3.6 - 4.9 mmol/L 02/23/2025 12:44 AM EDT [facility] Chloride, Plasma 91(L) 97 - 107 mmol/L 02/23/2025 12:44 AM EDT [facility] CO2, Plasma 23 22 - 29 mmol/L 02/23/2025 12:44 AM EDT [facility] Anion Gap 13 6 - 16 mmol/L 02/23/2025 12:44 AM EDT [facility] Total Calcium, Plasma 9.0 8.9 - 10.2 mg/dL 02/23/2025 12:44 AM EDT [facility] eGFRcr 23.5 mL/min/1.7 3m*2 02/23/2025 12:44 AM EDT [facility] Comment:Reported eGFRcr in m L/min/1.73m2 is based the CKD-EPI 2020 equation that does not use a race coefficient. Blood Venous blood specimen / Unknown Venipuncture / Unknown 02/23/2025 12:05 AM EDT 02/23/2025 12:17 AM EDT us Bobby Parra MD LAB BLOOD ORDERABLES Final R esult [facility] [address] [place] [address] * (ABNORMAL) POCT glucose meter (02/23/2025 12:04 [...] Comment 02/23/2025 12:06 AM EDT [facility] Operations Examiner ID Daniela Mcbride 02/23/2025 12:06 AM EDT [facility] Device ID [id number] 02/23/2025 12:06 AM EDT [facility] Specimen Type POC Capillary 02/23/2025 12:06 AM EDT [facility] Blood Capillary blood specimen / Unknown 02/23/2025 12:04 AM EDT 02/23/2025 12:06 AM EDT Luda Ralph MD LAB POINT OF CARE TE ST DOCKED DEVICE UNSOLICITED RESULTS Final Result Performing Organization Address [facility] Co de Phone Number [facility] [address] [place] [address] * (ABNORMAL) Quantitative BAL/PAL/Bronch Wash Culture and Gram StainProtected Alveolar Lavage (02/23/2025 12:00 AM EDT) Culture [id number] CFU/mL Mixed upper respiratory jesus(A) 02/24/2025 12:09 PM EDT [facility] Comment:The organism value f or this result has been updated. These results have been appended to the previously preliminary verified report. Gram Stain Result Numerous Polymorphonuclear leukocytes(A) 02/24/2025 12:09 PM EDT [facility] Gram Stain Result Numerous Gram positive cocci in pairs(A) 02/24/2025 12:09 PM EDT [facility] Gram Stain Result Moderate Gram positive cocci in clusters(A) 02/24/2025 12:09 PM EDT [facility] Gram Stain Result Moderate Gram positive rods(A) 02/24/2025 12:09 PM EDT [facility] Protected Alveolar Lavage (Protected Alveolar Lavage) 02/23/2025 12:00 AM EDT 02/23/2025 1:17 AM EDT Luda Ralph MD LAB MICROBIOLOGY - GENERAL O RDERABLES Final Result Performing Organization Address City/[facility]/ZIP Co de Phone Number [facility] [address] [place] [address] * ECG Adult (02/22/2025 11:57 PM EDT) EKG DIAGNOSIS CLASS Abnormal MUSE ECG Ventricular Rate 81 BPM MUSE ECG Atrial Rate 81 BPM MUSE ECG ME Interval 204 ms MUSE ECG QRSD Interval 136 ms MUSE ECG QT Interval 428 ms MUSE ECG QTC Interval 497 ms MUSE ECG P Oxford 58 degrees MUSE ECG R Oxford -72 degrees MUSE ECG T Wave [place] 47 degrees MUSE ECG Diagnosis Normal sinus rhythm MUSE ECG Diagnosis Left axis deviation MUSE ECG Diagnosis Right bundle branch block MUSE ECG Diagnosis Low voltage chest leads MUSE ECG Diagnosis Abnormal ECG MUSE ECG Diagnosis Compared to last ECG MUSE ECG Diagnosis No significant change was found MUSE ECG Diagnosis Confirmed by Carson Multani ([id number]) on 02/23/2025 11:11:42 AM MUSE ECG 02/22/2025 11:5 7 PM EDT 02/23/2025 11:11 AM EDT us Luda Ralph MD ECG ORDERABLES Final Result Performing Organization Address City/[facility]/ZIP Co de Phone Number MUSE ECG * (ABNORMAL) Procalcitonin (02/22/2025 10:03 PM EDT) Procalcitonin, Plasma 0.21(H) <0.09 ng/mL 02/22/2025 10:48 PM EDT [facility] Blood Venous blood specimen / Unknown Venipuncture / Unknown 02/22/2025 10:03 PM EDT 02/22/2025 10:11 PM EDT Narrative [facility] - 02/22/2025 10:48 PM EDT [...] predict 28 day mortality risk. Please consult [email or web address] for more information. Test performed at [facility]. Luda Ralph MD LAB BLOOD ORDERABLES Final R esult [facility] [address] [place] [address] * (ABNORMAL) N-Terminal Probnp (02/22/2025 10:03 PM EDT) Pathologist [facility] N-Terminal, PROBNP, Plasma 1,542(H) 0 - 899 pg/mL 02/22/2025 10:[address] [facility] Blood Venous blood specimen / Unknown Venipuncture / Unknown 02/22/2025 10:03 PM EDT 02/22/2025 10:11 PM EDT Bobby Parra MD LAB BLOOD ORDERABLES Final R esult Performing Organization Address [facility]/[place] [address] * (ABNORMAL) Multi Drug Resistance Test (02/22/2025 10:02 PM EDT) [facility] Culture Methicillin-Resist ant Staphylococcus aureus(AA) 02/24/2025 6:[address] [facility] Swab (Nares and Samantha Rectal) Non-blood Collection / Unknown 02/22/2025 10:02 PM EDT 02/22/2025 10:16 PM EDT Narrative [facility] - 02/24/2025 6:58 AM EDT This test was developed and its performance characteristics determined by the [facility]. Although the media is FDA-approved, it is not FDA-approved for all specimen types submitted. The FDA has determined that such clearance or approval is not necessary. This test is used for surveillance purposes. It should not be regarded as investigational or for research. The [facility] is certified under the Clinical Laboratory Improvement Amendments of 1988 (CLIA-88) as qualified to perform high complexity clinical laboratory testing. Bobby Parra MD LAB MICROBIOLOGY - GENERAL O RDERABLES Final Result Performing Organization Address City/[facility]/[place] [address] * Sahara auris Surveillance by PCR (02/22/2025 10:02 PM EDT) Sahara auris PCR Result Not Detected Not Detected 02/24/2025 7:03 AM EDT [facility] Swab (Axilla and Groin) Non-blood Collection / Unknown 02/22/2025 10:02 PM EDT 02/22/2025 10:16 PM EDT Narrative [facility] - 02/24/2025 7:03 AM EDT This PCR assay was developed and its performance characteristics determined by [facility] as appropriate for clinical purposes. This assay has not been cleared or approved by the FDA, but is performed in a CLIA regulated laboratory that is qualified to perform high-complexity testing. Bobby Parra MD LAB MICROBIOLOGY - GENERAL O RDERABLES Final Result Performing Organization Address City/[facility] Co de Phone Number [facility] [address] [place] [address] * (ABNORMAL) Fentanyl Urine Confirm (02/22/2025 10:01 PM EDT) Fentanyl 1(H) <1 ng/mL 02/24/2025 9:18 AM EDT [facility] Norfentanyl 2(H) <2 ng/mL 02/24/2025 9:18 AM EDT [facility] Urine Urine specimen obtained by clean catch procedure / Unknown Non-blood Collection / Unknown 02/22/2025 10:01 PM EDT 02/22/2025 10:11 PM EDT Narrative [facility] - 02/24/2025 9:18 AM EDT Drug analysis is confirmed by LC-MS/MS (LC Tandem Mass Spectrometry) on Urine specimens. This test was developed and its performance characteristics determined by [facility]. It has not been cleared or approved by the FDA. The laboratory is regulated under CLIA as qualified to perform high-complexity testing. This test is used for clinical purposes. Testing is performed at the [facility]. us Luda Morton MD LAB URINE ORDERABLES Final Result Performing Organization Address City/[facility]/ZIP Co de Phone Number [facility] [address] [place] [address] * SEND HECTOR MESSAGE (02/22/2025 10:01 PM EDT) Urine Urine specimen obtained by clean catch procedure / Unknown Non-blood Collection / Unknown 02/22/2025 10:01 PM EDT 02/22/2025 10:14 PM EDT Bobby Parra MD LAB URINE ORDERABLES Final R esult Performing Organization Address [facility] Co de Phone Number [facility] [address] [place] [address] * (ABNORMAL) Urine Culture (02/22/2025 10:01 PM EDT) Culture 100 CFU/mL Normal Urogenital Jesus(A) 02/24/2025 6:[address] [facility] Urine Urine specimen obtained by clean catch procedure / Unknown Non-blood Collection / Unknown 02/22/2025 10:01 PM EDT 02/22/2025 10:14 PM EDT Bobby Parra MD LAB MICROBIOLOGY - GENERAL O RDERABLES Final Result Performing Organization Address City/[facility] Co de Phone Number [facility] [address] [place] [address] * Urinalysis Microscopic Examination (02/22/2025 10:01 PM EDT) Urine Urine specimen obtained by clean catch procedure / Unknown Non-blood Collection / Unknown 02/22/2025 10:01 PM EDT 02/22/2025 10:11 PM EDT Bobby Parra MD LAB URINE ORDERABLES Final R esult [facility] [address] [place] [address] * Urine Salmon Panel (02/22/2025 10:01 PM EDT) Extra Sent for Culture 02/23/2025 12:[address] [facility] Urine Urine specimen obtained by clean catch procedure / Unknown Non-blood Collection / Unknown 02/22/2025 10:01 PM EDT 02/22/2025 10:14 PM EDT us Bobby Parra MD LAB URINE ORDERABLES Final R esult [facility] [address] [place] [address] * (ABNORMAL) Urinalysis with reflex microscopic (Culture NOT Included) (02/22/2025 10:01 PM EDT) Color, Urine Red LAB URINALYSIS - AUTOMATED METHOD 02/22/2025 11:13 PM EDT [facility] Clarity, Urine Cloudy LAB URINALYSIS - AUTOMATED METHOD 02/22/2025 11:13 PM EDT [facility] Spec Jackson, Urine 1.010 1.005 - 1.030 LAB URINALYSIS - AUTOMATED METHOD 02/22/2025 11:13 PM EDT [facility] pH, Urine 6.5 5.0 - 8.0 LAB URINALYSIS - AUTOMATED METHOD 02/22/2025 11:13 PM EDT [facility] Protein, Urine >=300(A) Negative mg/dL LAB URINALYSIS - AUTOMATED METHOD 02/22/2025 11:13 PM EDT [facility] Glucose, Urine Negative Negative mg/dL LAB URINALYSIS - AUTOMATED METHOD 02/22/2025 11:13 PM EDT [facility] Ketones, Urine Negative Negative mg/dL LAB URINALYSIS - AUTOMATED METHOD 02/22/2025 11:13 PM EDT [facility] Blood, Urine Large(A) Negative LAB URINALYSIS - AUTOMATED METHOD 02/22/2025 11:13 PM EDT [facility] Bilirubin, Urine Small(A) Negative LAB URINALYSIS - AUTOMATED METHOD 02/22/2025 11:13 PM EDT [facility] Urobilinogen, Urine 0.2 0.2 to 1.0 mg/dL LAB URINALYSIS - AUTOMATED METHOD 02/22/2025 11:13 PM EDT [facility] Leukocytes, Urine Large(A) Negative LAB URINALYSIS - AUTOMATED METHOD 02/22/2025 11:13 PM EDT [facility] Nitrite, Urine Negative Negative LAB URINALYSIS - AUTOMATED METHOD 02/22/2025 11:13 PM EDT [facility] RBC, Urine >50(A) 0 to 3 /HPF LAB URINALYSIS - AUTOMATED METHOD 02/22/2025 11:13 PM EDT [facility] WBC, Urine >50(A) 0 to 5 /HPF LAB URINALYSIS - AUTOMATED METHOD 02/22/2025 11:13 PM EDT [facility] Squamous Epithelial Cells 0 - 2 0 to 5 /HPF LAB URINALYSIS - AUTOMATED METHOD 02/22/2025 11:13 PM EDT [facility] Hyaline Casts 0 - 2 0 to 5 /LPF LAB URINALYSIS - AUTOMATED METHOD 02/22/2025 11:13 PM EDT [facility] Bacteria, Urine Negative Negative LAB URINALYSIS - AUTOMATED METHOD 02/22/2025 11:13 PM EDT [facility] Urine Urine specimen obtained by clean catch procedure / Unknown Non-blood Collection / Unknown 02/22/2025 10:01 PM EDT 02/22/2025 10:11 PM EDT Narrative [facility] - 02/22/2025 11:13 PM EDT Urinalysis dipstick results may be inaccurate due to specimen color or an interfering substance in the specimen. Bobby Parra MD LAB URINE ORDERABLES Final R esult [facility] [address] [place] [address] * Drug abuse screen (02/22/2025 10:01 PM EDT) Amphetamine Screen Urine Negative Cutoff: 500 ng/mL 02/23/2025 12:22 AM EDT [facility] Benzodiazepines Screen Urine Negative Cutoff: 200 ng/mL 02/23/2025 12:22 AM EDT [facility] Cannabinoid Screen Urine Negative Cutoff: 50 ng/mL 02/23/2025 12:22 AM EDT [facility] Cocaine Screen Urine Negative Cutoff: 300 ng/mL 02/23/2025 12:22 AM EDT [facility] Barbiturate Screen Urine Negative Cutoff: 200 ng/mL 02/23/2025 12:22 AM EDT [facility] Opiate Screen Urine Negative Cutoff: 300 ng/mL 02/23/2025 12:22 AM EDT [facility] Methadone Screen Urine Negative Cutoff: 300 ng/mL 02/23/2025 12:22 AM EDT [facility] Buprenorphine Screen Urine Negative Cutoff: 10 ng/mL 02/23/2025 12:22 AM EDT [facility] Fentanyl Screen Urine Presumptive positive. Confirmation by LC-MS/MS to follow. Cutoff: 1 ng/mL 02/23/2025 12:22 AM EDT [facility] Oxycodone Screen Urine Negative Cutoff: 100 ng/mL 02/23/2025 12:22 AM EDT [facility] Urine Urine specimen obtained by clean catch procedure / Unknown Non-blood Collection / Unknown 02/22/2025 10:01 PM EDT 02/22/2025 10:11 PM EDT Luda Morton MD LAB URINE ORDERABLES Final Result [facility] [address] [place] [address] * (ABNORMAL) POCT glucose meter (02/22/2025 9:38 PM EDT) [facility] POCT Glucose 156(H) 74 - 99 mg/dL [...] 02/22/2025 9:40 PM EDT [facility] Operations Examiner ID Shiloh Friedman 02/23/20 9:40 PM EDT [facility] Device ID [id number] 02/22/2025 9:40 PM EDT [facility] Specimen Type POC Capillary 02/22/2025 9:40 PM EDT [facility] Blood Capillary blood specimen / Unknown 02/22/2025 9:38 PM EDT 02/22/2025 9:40 PM EDT us Luda Ralph MD LAB POINT OF CARE TE ST DOCKED DEVICE UNSOLICITED RESULTS Final Result [facility] [address] [place] [address] * (ABNORMAL) POCT arterial blood gas gem (02/22/2025 9:05 PM EDT) pH, Arterial 7.45(H) 7.31 - 7.42 02/22/2025 9:06 PM EDT [facility] pCO2, Arterial 37 35 - 48 mm Hg 02/22/2025 9:06 PM EDT [facility] pO2, Arterial 86 >80 mm Hg 02/22/2025 9:06 PM EDT [facility] SO2, Arterial 98 94 - 98 % 02/22/2025 9:06 PM EDT [facility] FIO2 60.0 % 02/22/2025 9:06 PM EDT [facility] Base Excess, Arterial 1.7 -2 - 3 mmol/L 02/22/2025 9:06 PM EDT [facility] HCO3, Arterial 25.7 22 - 26 mmol/L 02/22/2025 9:06 PM EDT [facility] Total Hemoglobin, Arterial, Whole Blood 9.1(L) 11.2 - 15.7 g/dL 02/22/2025 9:06 PM EDT [facility] Hematocrit, Arterial 27.0(L) 34.0 - 45.0 % 02/22/2025 9:06 PM EDT [facility] Sodium, Arterial 125(L) 136 - 145 mmol/L 02/22/2025 9:06 PM EDT [facility] Potassium, Arterial 4.9 3.6 - 4.9 mmol/L 02/22/2025 9:06 PM EDT [facility] Comment:Hemolyzed, result ma y be falsely increased. Chloride, Whole Blood 95(L) 97 - 107 mmol/L 02/22/2025 9:06 PM EDT [facility] Glucose, Arterial 116(H) 74 - 99 mg/dL 02/22/2025 9:06 PM EDT [facility] Ionized Calcium, Arterial 4.8 4.6 - 5.1 mg/dL 02/22/2025 9:06 PM EDT [facility] Lactate, Arterial 0.8 0.5 - 1.6 mmol/L 02/22/2025 9:06 PM EDT [facility] Body Temperature 37.0 Celsius 02/22/2025 9:06 PM EDT [facility] pH, Temp Corrected, Arterial 7.45(H) 7.31 - 7.42 02/22/2025 9:06 PM EDT [facility] pCO2, Temp Corrected, Arterial 37 35 - 48 mm Hg 02/22/2025 9:06 PM EDT [facility] pO2, Temp Corrected, Arterial 86 >80 mm Hg 02/22/2025 9:06 PM EDT [facility] Operations Examiner ID Slim Morton 02/22/2025 9:06 PM EDT [facility] Blood, Arterial Whole blood specimen / Unknown 02/22/2025 9:05 PM EDT 02/22/2025 9:06 PM EDT Luda Ralph MD LAB POINT OF CARE TE ST DOCKED DEVICE UNSOLICITED RESULTS Final Result Performing Organization Address City/[facility]/ZIP Co de Phone Number [facility] [address] [place] [address] * Blood Culture (Aerobic/Anaerobet Set) (02/22/2025 8:55 PM EDT) [facility] Culture No growth at day 5 02/27/2025 10:01 PM EDT [facility] Blood Structure of right hand / Unknown Venipuncture / Unknown 02/22/2025 8:55 PM EDT 02/22/2025 9:29 PM EDT Narrative [facility] - 02/27/2025 10:01 PM EDT Low blood volume submitted, results may be compromised Luda Morton MD LAB MICROBIOLOGY - GENERAL ORDERABLES Final Result [facility] [address] [place] [address] * Ionized calcium, serum (02/22/2025 8:36 PM EDT) Pathologist [facility] Ionized Calcium, Serum 4.8 4.6 - 5.3 mg/dL LAB HEMATOLOGY METHOD 02/22/2025 9:42 PM EDT [facility] Blood Venous blood specimen / Unknown Venipuncture / Unknown 02/22/2025 8:36 PM EDT 02/22/2025 8:53 PM EDT us Bobby Parra MD LAB BLOOD ORDERABLES Final R esult [facility] [address] [place] [address] * (ABNORMAL) CBC W/O Differential (02/22/2025 8:36 PM EDT) Pathologist [facility] WBC Count 7.98 3.70 - 10.30 10*3/uL LAB HEMATOLOGY METHOD 02/22/2025 8:44 PM EDT [facility] RBC Count 3.52(L) 3.90 - 5.20 10*6/uL LAB HEMATOLOGY METHOD 02/22/2025 8:44 PM EDT [facility] HGB 9.2(L) 11.2 - 15.7 g/dL LAB HEMATOLOGY METHOD 02/22/2025 8:44 PM EDT [facility] HCT 28.5(L) 34.0 - 45.0 % LAB HEMATOLOGY METHOD 02/22/2025 8:44 PM EDT [facility] Platelet Count 329 155 - 369 10*3/uL LAB HEMATOLOGY METHOD 02/22/2025 8:44 PM EDT [facility] MCV 81 79 - 98 fL LAB HEMATOLOGY METHOD 02/22/2025 8:44 PM EDT [facility] MCH 26.1 26.0 - 32.0 pg LAB HEMATOLOGY METHOD 02/22/2025 8:44 PM EDT [facility] MCHC 32.3 30.7 - 35.5 g/dL LAB HEMATOLOGY METHOD 02/22/2025 8:44 PM EDT [facility] RDW 14.6(H) 11.5 - 14.5 % LAB HEMATOLOGY METHOD 02/22/2025 8:44 PM EDT [facility] MPV 9.5 8.8 - 12.5 fL LAB HEMATOLOGY METHOD 02/22/2025 8:44 PM EDT [facility] nRBC 0.0 <=0.0 per 100 WBCs LAB HEMATOLOGY METHOD 02/22/2025 8:44 PM EDT [facility] Blood Venous blood specimen / Unknown Venipuncture / Unknown 02/22/2025 8:36 PM EDT 02/22/2025 8:40 PM EDT us Bobby Parra MD LAB BLOOD ORDERABLES Final R esult [facility] [address] [place] [address] * (ABNORMAL) Blood gas, venous (02/22/2025 8:13 PM EDT) pH, Venous 7.33 7.32 - 7.43 LAB HEMATOLOGY METHOD 02/22/2025 8:17 PM EDT [facility] pCO2, Venous 49 37 - 52 mmHg LAB HEMATOLOGY METHOD 02/22/2025 8:17 PM EDT [facility] pO2, Venous 27 25 - 40 mmHg LAB HEMATOLOGY METHOD 02/22/2025 8:17 PM EDT [facility] SO2, Measured, Venous 49(L) 65 - 80 % LAB HEMATOLOGY METHOD 02/22/2025 8:17 PM EDT [facility] Base Excess, Venous -0.1 -2.0 - 3.0 mmol/L LAB HEMATOLOGY METHOD 02/22/2025 8:17 PM EDT [facility] Bicarbonate, Calculated, Venous 26 22 - 26 mmol/L LAB HEMATOLOGY METHOD 02/22/2025 8:17 PM EDT [facility] Hematocrit, Whole Blood 27.0(L) 34.0 - 45.0 % LAB HEMATOLOGY METHOD 02/22/2025 8:17 PM EDT [facility] Sodium, Whole Blood 128(L) 136 - 145 mmol/L LAB HEMATOLOGY METHOD 02/22/2025 8:17 PM EDT [facility] Potassium, Whole Blood 5.3(H) 3.6 - 4.9 mmol/L LAB HEMATOLOGY METHOD 02/22/2025 8:17 PM EDT [facility] Chloride, Whole Blood 96(L) 97 - 107 mmol/L LAB HEMATOLOGY METHOD 02/22/2025 8:17 PM EDT [facility] Glucose, Whole Blood 106(H) 74 - 99 mg/dL LAB HEMATOLOGY METHOD 02/22/2025 8:17 PM EDT [facility] Lactate, Venous, Whole Blood 1.0 0.5 - 2.2 mmol/L LAB HEMATOLOGY METHOD 02/22/2025 8:17 PM EDT [facility] Ionized Calcium, Whole Blood 4.3(L) 4.6 - 5.1 mg/dL LAB HEMATOLOGY METHOD 02/22/2025 8:17 PM EDT [facility] Blood Venous blood specimen / Unknown Venipuncture / Unknown 02/22/2025 8:13 PM EDT 02/22/2025 8:16 PM EDT us Luda Morton MD LAB BLOOD ORDERABLES Final Result Performing Organization Address City/[facility]/ZIP Co de Phone Number [facility] [address] [place] [address] * EKG now - STAT (adult) (02/22/2025 8:10 PM EDT) EKG DIAGNOSIS CLASS Abnormal MUSE ECG Ventricular Rate 74 BPM MUSE ECG Atrial Rate 74 BPM MUSE ECG ME Interval 200 ms MUSE ECG QRSD Interval 136 ms MUSE ECG QT Interval 434 ms MUSE ECG QTC Interval 481 ms MUSE ECG P Oxford 59 degrees MUSE ECG R [place] -84 degrees MUSE ECG T Wave [place] 48 degrees MUSE ECG Diagnosis Normal sinus [...] 9.2(H) <5.7 % 02/23/2025 1:40 PM EDT [facility] Blood Venous blood specimen / Unknown Venipuncture / Unknown 02/22/2025 6:41 PM EDT 02/22/2025 6:47 PM EDT Narrative [facility] - 02/23/2025 1:40 PM EDT HA1C Interpretive Data: Diagnosis of Diabetes: Diabetic > or = 6.5% Pre-diabetic 5.7 to 6.4% Non-diabetic < or = 5.6% Glycemic Targets for Type I and Type II Diabetics: Non- Adults <7.0% Adults <6.0% Children and Adolescents <7.5% Source: [employer]. Standards of medical care in diabetes,2017. Diabetes Care.2017:40 (suppl 1):S1-S135. Bobby Parra MD LAB BLOOD ORDERABLES Final R esult [facility] [address] [place] [address] * (ABNORMAL) BNP (02/22/2025 6:41 PM EDT) N-Terminal, PROBNP, Plasma 1,679(H) 0 - 899 pg/mL 02/22/2025 8:39 PM EDT [facility] Blood Venous blood specimen / Unknown Venipuncture / Unknown 02/22/2025 6:41 PM EDT 02/22/2025 6:47 PM EDT Luda Morton MD LAB BLOOD [place]AB[place] [address] * Free T4, Plasma (02/22/2025 6:41 PM EDT) Free T4, Plasma 1.3 0.8 - 1.7 ng/dL 02/22/2025 7:24 PM EDT [facility] Blood Venous blood specimen / Unknown Venipuncture / Unknown 02/22/2025 6:41 PM EDT 02/22/2025 6:47 PM EDT Luda Morton MD LAB BLOOD ORDERABLES Final Result Performing Organization Address City/[facility]/[place] [address] * Thyroid Stimulating Hormone, Plasma (02/22/2025 6:41 PM EDT) Thyroid Stimulating Hormone, Plasma 1.03 0.40 - 4.20 uIU/mL 02/22/2025 7:24 PM EDT [facility] Blood Venous blood specimen / Unknown Venipuncture / Unknown 02/22/2025 6:41 PM EDT 02/22/2025 6:47 PM EDT Luda Morton MD LAB BLOOD ORDERABLES Final Result Performing Organization Address City/[facility]/[place] [address] * Ethyl Alcohol Plasma (02/22/2025 6:41 PM EDT) Ethanol Plasma <10 <10 mg/dL 02/22/2025 8:13 PM EDT [facility] Blood Venous blood specimen / Unknown Venipuncture / Unknown 02/22/2025 6:41 PM EDT 02/22/2025 8:00 PM EDT Narrative [facility] - 02/22/2025 8:13 PM EDT Enzymatic Assay: Performed on [employer]uf[employer]. us Luda Morton MD LAB BLOOD ORDERABLES Final Result [facility] [address] [place] [address] * (ABNORMAL) CBC w/diff (02/22/2025 6:41 PM EDT) WBC Count 9.69 3.70 - 10.30 10*3/uL LAB HEMATOLOGY METHOD 02/22/2025 6:54 PM EDT [facility] RBC Count 3.62(L) 3.90 - 5.20 10*6/uL LAB HEMATOLOGY METHOD 02/22/2025 6:54 PM EDT [facility] HGB 9.7(L) 11.2 - 15.7 g/dL LAB HEMATOLOGY METHOD 02/22/2025 6:54 PM EDT [facility] HCT 29.8(L) 34.0 - 45.0 % LAB HEMATOLOGY METHOD 02/22/2025 6:54 PM EDT [facility] Platelet Count 306 155 - 369 10*3/uL LAB HEMATOLOGY METHOD 02/22/2025 6:54 PM EDT [facility] MCV 82 79 - 98 fL LAB HEMATOLOGY METHOD 02/22/2025 6:54 PM EDT [facility] MCH 26.8 26.0 - 32.0 pg LAB HEMATOLOGY METHOD 02/22/2025 6:54 PM EDT [facility] MCHC 32.6 30.7 - 35.5 g/dL LAB HEMATOLOGY METHOD 02/22/2025 6:54 PM EDT [facility] RDW 14.6(H) 11.5 - 14.5 % LAB HEMATOLOGY METHOD 02/22/2025 6:54 PM EDT [facility] MPV 9.4 8.8 - 12.5 fL LAB HEMATOLOGY METHOD 02/22/2025 6:54 PM EDT [facility] nRBC 0.0 <=0.0 per 100 WBCs LAB HEMATOLOGY METHOD 02/22/2025 6:54 PM EDT [facility] Differential Type Automated LAB HEMATOLOGY METHOD 02/22/2025 6:54 PM EDT [facility] Neutrophils % 69 % LAB HEMATOLOGY METHOD 02/22/2025 6:54 PM EDT [facility] Lymphocytes % 13 % LAB HEMATOLOGY METHOD 02/22/2025 6:54 PM EDT [facility] Monocytes % 13 % LAB HEMATOLOGY METHOD 02/22/2025 6:54 PM EDT [facility] Eosinophils % 4 % LAB HEMATOLOGY METHOD 02/22/2025 6:54 PM EDT [facility] Basophils % 0 % LAB HEMATOLOGY METHOD 02/22/2025 6:54 PM EDT [facility] Immature Granulocytes % 1 % LAB HEMATOLOGY METHOD 02/22/2025 6:54 PM EDT [facility] Neutrophils Absolute 6.66(H) 1.60 - 6.10 10*3/uL LAB HEMATOLOGY METHOD 02/22/2025 6:54 PM EDT [facility] Lymphocytes Absolute 1.29 1.20 - 3.90 10*3/uL LAB HEMATOLOGY METHOD 02/22/2025 6:54 PM EDT [facility] Monocytes Absolute 1.27(H) 0.30 - 0.90 10*3/uL LAB HEMATOLOGY METHOD 02/22/2025 6:54 PM EDT [facility] Eosinophils Absolute 0.38 0.00 - 0.50 10*3/uL LAB HEMATOLOGY METHOD 02/22/2025 6:54 PM EDT [facility] Basophils Absolute 0.03 0.00 - 0.10 10*3/uL LAB HEMATOLOGY METHOD 02/22/2025 6:54 PM EDT [facility] Immature Granulocytes Absolute 0.06 0.00 - 0.06 10*3/uL LAB HEMATOLOGY METHOD 02/22/2025 6:54 PM EDT [facility] Blood Venous blood specimen / Unknown Venipuncture / Unknown 02/22/2025 6:41 PM EDT 02/22/2025 6:47 PM EDT [facility] - 02/22/2025 6:54 PM EDT Therapeutic decision making should be based on absolute values, rather than percentages. us Luda Morton MD LAB BLOOD ORDERABLES Final Result [facility] [address] [place] [address] * (ABNORMAL) CMP (02/22/2025 6:41 PM EDT) Glucose, Plasma 144(H) 74 - 99 mg/dL 02/22/2025 7:24 PM EDT [facility] BUN, Plasma 42(H) 8 - 23 mg/dL 02/22/2025 7:24 PM EDT [facility] Creatinine, Plasma 2.39(H) 0.60 - 1.10 mg/dL 02/22/2025 7:24 PM EDT [facility] BUN/Creatinine Ratio 18 02/22/2025 7:24 PM EDT [facility] Sodium, Plasma 125(L) 136 - 145 mmol/L 02/22/2025 7:24 PM EDT [facility] Potassium, Plasma 4.6 3.6 - 4.9 mmol/L 02/22/2025 7:24 PM EDT [facility] Chloride, Plasma 89(L) 97 - 107 mmol/L 02/22/2025 7:24 PM EDT [facility] CO2, Plasma 26 22 - 29 mmol/L 02/22/2025 7:24 PM EDT [facility] Anion Gap 10 6 - 16 mmol/L 02/22/2025 7:24 PM EDT [facility] Total Calcium, Plasma 9.0 8.9 - 10.2 mg/dL 02/22/2025 7:24 PM EDT [facility] Total Protein 7.3 6.3 - 7.9 g/dL 02/22/2025 7:24 PM EDT [facility] Albumin, Plasma 3.6 3.5 - 5.2 g/dL 02/22/2025 7:24 PM EDT [facility] AST, Plasma 13 10 - 35 U/L 02/22/2025 7:24 PM EDT [facility] ALT, Plasma 19 10 - 35 U/L 02/22/2025 7:24 PM EDT [facility] Alkaline Phosphatase, Plasma 144(H) 46 - 142 U/L 02/22/2025 7:24 PM EDT [facility] Total Bilirubin, Plasma <0.2(L) 0.2 - 1.1 mg/dL 02/22/2025 7:24 PM EDT [facility] eGFRcr 22.0 mL/min/1.7 3m*2 02/22/2025 7:24 PM EDT [facility] Comment:Reported eGFRcr in m L/min/1.73m2 is based the CKD-EPI 2020 equation that does not use a race coefficient. Blood Venous blood specimen / Unknown Venipuncture / Unknown 02/22/2025 6:41 PM EDT 02/22/2025 6:47 PM EDT Luda Morton MD LAB BLOOD ORDERABLES Final Result [facility] [address] [place] [address] * (ABNORMAL) POCT venous blood gas gem (02/22/2025 6:37 PM EDT) pH, Venous 7.28(L) 7.32 - 7.43 02/22/2025 6:38 PM EDT [facility] pCO2, Venous 60(HH) 37 - 52 mm Hg 02/22/2025 6:38 PM EDT [facility] pO2, Venous 41(H) 25 - 40 mm Hg 02/22/2025 6:38 PM EDT [facility] SO2, Venous 72 65 - 80 % 02/22/2025 6:38 PM EDT [facility] Base Excess/Deficit, Venous 0.8 -2 - 3 mmol/L 02/22/2025 6:38 PM EDT [facility] HCO3, Venous 28.2(H) 22 - 26 mmol/L 02/22/2025 6:38 PM EDT [facility] Hemoglobin, Venous 9.2(L) 11.2 - 15.7 g/dL 02/22/2025 6:38 PM EDT [facility] Hematocrit, Venous 28.0(L) 34.0 - 45.0 % 02/22/2025 6:38 PM EDT [facility] Sodium, Venous 126(L) 136 - 145 mmol/L 02/22/2025 6:38 PM EDT [facility] Potassium, Venous 4.6 3.6 - 4.9 mmol/L 02/22/2025 6:38 PM EDT [facility] Comment:Hemolyzed, result ma y be falsely increased. POCT Chloride, Venous 94(L) 97 - 107 mmol/L 02/22/2025 6:38 PM EDT [facility] Glucose, Venous 139(H) 74 - 99 mg/dL 02/22/2025 6:38 PM EDT [facility] Ionized Calcium, Venous 4.9 4.6 - 5.1 mg/dL 02/22/2025 6:38 PM EDT [facility] Lactate, Venous 0.6 0.5 - 2.2 mmol/L 02/22/2025 6:38 PM EDT [facility] Body Temperature 37.0 Celsius 02/22/2025 6:38 PM EDT [facility] pH, Temp Corrected, Venous 7.28(L) 7.32 - 7.43 02/22/2025 6:38 PM EDT [facility] pCO2, Temp Corrected, Venous 60(HH) 37 - 52 mm Hg 02/22/2025 6:38 PM EDT [facility] pO2, Temp Corrected, Venous 41(H) 25 - 40 mm Hg 02/22/2025 6:38 PM EDT [facility] Operations Examiner ID Joao Jackson 02/22/2025 6:38 PM EDT [facility] Blood, Venous Whole blood specimen / Unknown 02/22/2025 6:37 PM EDT 02/22/2025 6:38 PM EDT us Generic Provider Poct LAB POINT OF CARE TEST DOCKED DEVICE UNSOLICITED RESULTS Final Result [facility] [address] [place] [address] * (ABNORMAL) POCT glucose meter (02/22/2025 6:17 [...] 02/22/2025 6:19 PM EDT [facility] Operations Examiner ID Tracy Vasques 02/22/2025 6:19 PM EDT [facility] Device ID [id number] 02/22/2025 6:19 PM EDT [facility] Specimen Type POC Capillary 02/22/2025 6:19 PM EDT [facility] Blood Capillary blood specimen / Unknown 02/22/2025 6:17 PM EDT 02/22/2025 6:19 PM EDT us Generic Provider Poct LAB POINT OF CARE TEST DOCKED DEVICE UNSOLICITED RESULTS Final Result [facility] [address] [place] [address] * INTUBATION (02/22/2025 6:13 PM EDT) Narrative [...] encounter Visit Diagnoses Diagnosis Sepsis (CMS/HCC)- Primary [place] coma scale total score 9-12, at arrival [...] documented as of this encounter Care Teams 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
--- OUTSIDE RECORDS SUMMARY | 2025-02-28 08:15 | XMS_ITS | Encounter Summary ---
Author Organization [facility] Address [address] [place] [address] Care Team Providers Care College Dean Name Role Phone Cayla Erazo APRN, DNP Unavailable [phone] Vignesh Pickens MD Primary Care Provider [phone] Reason for Visit * Auth/Cert (Routine) Specialty Diagnoses / Procedures Referred By Contac t Referred To Contact Diagnoses Sepsis (CMS/HCC) UTI, CKD, Hyponatremia, COPD exacerbation Bobby Parra MD [address] [place] [phone] Phone: tel: fax: PAV A Inpatient [address] [place] [phone] Referral ID Status Reason Start Date Expiration Date Visits Re quested Visits Authorized [id number] 1 1 Encounter Details Date Type Department Care Team (Latest Contact Info) Description 02/28/2025 8:15 AM EDT Office Visit [facility] [address] [place] [phone] Bert Lim, DMD [address] [place] [phone] Caries (Primary Dx) Social History Tobacco Use [...] any time in the past 12 m [facility], were you homeless or living in [...] drink first t rodríguez in the morning (EYE-PLUGGER MAN) to steady your nerves or to get rid of a hangover? 0 08/15/2024 CAGE Questionnaire Score 0 024 Utilities Answer Date Recorded In the past 12 months has th [employer], gas, oil, or water company threatened to [...] patient prior to prescribing narcotic medication. Bert Lim DMD [facility] developmental training counselor PGY-1 Pager #: [phone] Cosigned by Froylan Summers DMD at 03/01/2025 8:09 AM EDT Associated attestation - Froylan Summers DMD - 03/01/2025 8:09 AM EDT I was present during all critical and madden portions of the procedure(s) and immediately available [facility] services the entire duration. See resident note for details. documented in this encounter Plan of Treatment Upcoming Encounters Date Type Department Care Team (Late st Contact Info) Description 04/08/2025 9:20 AM EDT Office Visit [facility] Urology [address] [place] [address] Cayla Erazo, BAG END SEWER, DNP [address] [place] [address] 05/16/2025 8:00 AM EDT Office Visit [facility] [place] [address] [facility], [address] [place] [address] Karly Gracia MD [address] [place] [address] 06/07/2025 1:00 PM EDT Office Visit [facility] [address] [place] [address] Tom Iraheta MD [address] [place] [address] documented as of this encounter [...] documented as of this encounter Care Teams College Dean Relationship Specialty Start Date End Date Vignesh Pickens MD [address] [place] [address] PCP - General 12/31/24 Cayla Erazo APRN, DNP [address] [place] [address] Nurse Practitioner Urology 12/20/24 documented as of this encounter
--- OUTSIDE RECORDS SUMMARY | 2025-03-07 10:00 | XMS_ITS | Encounter Summary ---
Author Organization [facility] Address [address] [place] [address] Care Team Providers Care Vul[employer]izer Rubber Plate Name Role Phone Cayla Erazo APRN, DNP Unavailable [phone] Vignesh Pickens MD Primary Care Provider [phone] Reason for Visit * Other Medical (Routine) - Closed Specialty Diagnoses / Procedures Referred By Contelvie t Referred To Contact Urology Diagnoses Gross hematuria Procedures Cysto- Urology Cayla Erazo APRN, DNP [address] [address] Phone: tel: fax: Referral ID Status Reason Start Date Expiration Date Visits Re quested Visits Authorized [id number] Closed 12/25/2024 06/26/2026 1 1 Encounter Details Date Type Department Care Team (Late st Contact Info) Description 03/07/2025 10:00 AM EDT Office Visit [facility] [address] [place] [address] Doug Chapman MD [id number] [place] [address] Gross hematuria Social History Tobacco [...] drink first t rodríguez in the morning (EYE-MOBILE ELECTRONICS INSTALLER) to steady your nerves or to get rid of a hangover? 0 08/15/2024 CAGE Questionnaire Score 0 024 Utilities Answer Date Recorded In the past 12 months has th e [employer], gas, oil, or water [employer] threatened to shut off services in your [...] Maxwell MD - 03/07/2025 10:00 AM EDT [facility] Urology Clinic Note CC: hematuria HPI: Eileen Tovar is a 64 y.o. F who was initially evaluated in Sep 2024 for diagnosis ofbilateral hydronephrosis in Jul 2024 thought to be due to severe constipation. She was treated for UTI while inpatient at [facility] and had improvement in renal function and hydronephrosis with indwellingFoley catheter that was removed prior to discharge to [facility] in [place]. She is a limited historian, presented in a wheelchair, and is accompanied by a staff member from [facility] without further information provided. She presents [...] Vitals: 03/07/25 1009 BP: 108/63 Pulse: 79 Deputy Director present during entire exam General: Pleasant, [...] Essential (primary) hypertension CAD (coronary artery disease), [place] coronary artery Controlled diabetes mellitus type II without complication Iron deficiency anemia Second hand smoke exposure Acute kidney injury superimposed on CKD ([facility]/HCC) Arthritis Cellulitis of left knee Chronic respiratory failure COPD (chronic obstructive pulmonary disease) ([facility]) Dehydration with hyponatremia Diabetes mellitus ([facility]) Hyperlipidemia Restrictive lung disease Stroke ([facility]) Dave coma scale total score 13-15, unspecified coma timing Pyelonephritis Kidney infection Acquired absence of leg above knee Stage 3 chronic kidney disease ([facility]) Type 2 diabetes mellitus with diabetic chronic kidney disease ([facility]) Peripheral vascular disease, unspecified ([facility]) Prosthetic joint infection ([facility]) Unspecified hydronephrosis Vitamin D deficiency, unspecified Disorder of kidney and ureter, unspecified Unspecified right bundle-branch block Unspecified abdominal pain Tubulo-interstitial nephritis, not specified as acute or chronic Tinea unguium Secondary hyperparathyroidism of renal origin ([facility]) Pain in right toe(s) Pain in left toe(s) Edema, unspecified Presence of left artificial knee joint Other specified disorders of the skin and subcutaneous tissue Other nonspecific abnormal finding of lung field Weakness Other disorders of phosphorus metabolism Other acute postprocedural pain Old myocardial infarction Nontoxic single thyroid nodule Morbid (severe) obesity due to excess calories ([facility]) Mixed simple and mucopurulent chronic bronchitis ([facility]) Methicillin resistant Staphylococcus aureus infection Hypertensive heart and chronic kidney disease with heart failure and stage 1 through stage 4 chronic kidney disease, or unspecified chronic kidney disease ([facility]) Hyperkalemia Hydronephrosis with renal and ureteral calculous obstruction Hemiplegia and hemiparesis following cerebral infarction affecting left non- dominant side ([facility]) Fecal impaction ([facility]) Dysuria Dyspnea, unspecified Deep venous thrombosis of lower extremity Constipation, unspecified Chronic diastolic (congestive) heart failure ([facility]/HCC) Calculus of kidney Atrial premature [...] occlusion or stenosis of left carotid arteries ([facility]) Anemia in chronic kidney disease Chronic kidney [...] BREAST SURGERY N/A Breast Surgery Reconstruction from [employer] BREAST SURGERY N/A Breast Surgery from [employer] CHOLECYSTECTOMY N/A Cholecystotomy from [employer] KIDNEY SURGERY N/A Kidney Surgery from [employer] KNEE SURGERY N/A Knee Surgery from [employer] MASTECTOMY N/A Breast Surgery Mastectomy from [employer] SHOULDER SURGERY Right Shoulder Surgery Right from [employer] [4] Family History Problem Relation Name Age [...] Description 04/08/2025 9:20 AM EDT [facility] Visit [facility] [address] [place] [address] Cayla Erazo APRN, DNP [address] [address] 05/16/2025 8:00 AM EDT Office Visit [facility] [place] [facility] [address] [place] [address] Karly Gracia MD [address] [place] [address] 06/07/2025 1:00 PM EDT Office Visit [facility] [address] [place] [address] Tom Iraheta MD [address] [place] [address] documented as of this encounter [...] documented as of this encounter Care Teams Vulcanizer Rubber Plate Relationship Specialty Start Date End Date Vignesh Pickens MD [address] [place] [address] PCP - General 12/31/24 Cayla Erazo APRN, DNP [address] [address] Nurse Practitioner Urology 12/20/24 documented as of this encounter
--- OUTSIDE RECORDS SUMMARY | 2025-04-04 10:42 | XMS_ITS | Encounter Summary ---
Author Organization [facility] Address [address] [place] [address] Care Team Providers Care Outside Parts Sales Name Role Phone Daniel Barba MD Primary Care Provider [phone] Judy Huff LEAD C DEVELOPER Unavailable Unavailabl aCyla Louie APRN, FREDERICK Unavailable [phone] Vignesh Pickens MD Primary Care Provider [phone] Encounter Details Date Type Department Care Team (Late st Contact Info) Description 07/28/2022 Orders Only External Location [address] [place] [address] Gregg Morgan MD [address] [place] [address] Social History Tobacco Use Types [...] Description 04/08/2025 9:20 AM EDT Office Visit [facility] [address] [place] [address] Cayla Erazo APRN, DNP [address] [place] [address] 05/16/2025 8:00 AM EDT Office Visit [facility] [place] [address] [facility], [address] [place] [address] Karly Gracia MD [address] [place] [address] 06/07/2025 1:00 PM EDT Office Visit [facility] [address] [place] [address] Tom Iraheta MD [address] [place] [address] documented as of this encounter [...] documented as of this encounter Care Teams Outside Parts Sales Relationship Specialty Start Date End Date Daniel Barba MD [address] [place] [address] PCP - General 01/02/21 12/30/24 Vignesh Pickens MD [address] [place] [address] PCP - General 12/31/24 Judy Huff, JHONNY [facility] TCM Nurse 08/24/24 08/24/24 Cayla Erazo, LIZANDRO, FREDERICK [address] [place] [address] Nurse Practitioner Urology 12/20/24 documented as of this encounter
--- OUTSIDE RECORDS SUMMARY | 2025-04-04 10:42 | XMS_ITS | Clinical Summary ---
Author Organization [facility] Address [address] [place] [address] Phone Care Team Providers Care Supervisor Boarding Name Role Phone Foreign Spangler MD, Andrei Freehold Primary Care Provid er Allergies No known [...] [place] PART A AND B [place] [id number] Care Teams Supervisor Boarding Relationship Specialty Start Date End Date Andrei Carrasquillo Sr., MD [address] [place] [address] PCP - General Benzene Washer 03/17/16
--- OUTSIDE RECORDS SUMMARY | 2025-04-04 10:42 | XMS_ITS | Clinical Summary ---
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) 66438537 (SNOMED CT) 10/25 Active 10/25 Helen Salazar Benign hypertension Presence of left artificial knee joint Z96.652 (ICD-10-CM ) 10/25 Active 10/25 Helen Salazar Presence of left artificial knee joint Hx of MRSA infection 293891677 (SNOMED CT) 10/25 Active 10/25 Helen Salazar H/O: infectious disease Hx of malignant neoplasm of breast 459551208 (SNOMED CT) 03/02 Resolved 03/02 Helen Salazar History of malignant neoplasm of breast Cellulitis of left leg 335801189 (SNOMED CT) 03/02 Resolved 03/02 Helen Salazar Cellulitis of lower limb termination clerk (current) use of suppressive antibiotics Z79.2 (ICD-10-CM ) 01/14 Inactive 01/14 Helen Salazar USP (current) use of antibiotics Anemia in chronic diseases(docu ment disease) D63.8 (ICD-10-CM ) 01/14 Active 01/14 Helen Salazar Anemia in other chronic diseases classified elsewhere Chronic respiratory failure with hypoxia 70333505 (SNOMED CT) 01/14 Active 01/14 Helen Salazar Acute respiratory failure COPD 35234810 (SNOMED CT) 01/14 Active 01/14 Helen Salazar Chronic obstructive pulmonary disease DM Type II E11.9 (ICD-10-CM ) 01/14 Inactive 01/14 Helen Salazar Type 2 diabetes mellitus without complications Benign Essential Hypertension 41622555 (SNOMED CT) 01/14 Removed 01/14 Helen Salazar Benign hypertension Acquired absence of left knee joint 365686456 (SNOMED CT) 03/02 Resolved 03/02 Helen Salazar History of operative procedure on knee Obesity due to excess calories E66.09 (ICD-10-CM ) 03/02 Resolved 03/02 Helen Salazar Other obesity due to excess calories USP (current) use of anticoagulant s Z79.01 (ICD-10-CM ) 03/02 Resolved 03/02 Helen Salazar termination clerk (current) use of anticoagulants Staph epi infection B95.7 (ICD-10-CM ) 03/02 Resolved 03/02 Helen Salazar Other staphylococcus as the cause of diseases classified elsewhere Diarrhea 60557111 (SNOMED CT) 09/28 Resolved 09/28 Helen Salazar Diarrhea Staph hominis infection B95.7 (ICD-10-CM ) 09/28 Resolved 09/28 Helen Salazar Other staphylococcus as the cause of diseases classified elsewhere Staph hominis infection B95.7 (ICD-10-CM ) 09/28 Removed 09/28 Arie Dougherty MD Other staphylococcus as the cause of diseases classified elsewhere Diarrhea 28725820 (SNOMED CT) 09/28 Removed 09/28 Arie Dougherty MD Diarrhea Acquired absence of left knee joint 170571441 (SNOMED CT) 03/02 Removed 03/02 Helen Salazar History of operative procedure on knee Cellulitis of left leg 326167840 (SNOMED CT) 03/02 Removed 03/02 Helen Salazar Cellulitis of lower limb Knee, left, subsequent encounter, infection/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 T84.54xD (ICD-10-CM ) 03/02 Active 03/02 Helen Salazar Infection and inflammatory reaction due to internal left knee prosthesis, subsequent encounter Staph epi infection B95.7 (ICD-10-CM ) 03/02 Removed 03/02 Helen Salazar Other staphylococcus as the cause of diseases classified elsewhere USP (current) use of anticoagulant s Z79.01 (ICD-10-CM ) 03/02 Removed 03/02 Helen Salazar USP (current) use of anticoagulants Obesity due to excess calories E66.09 (ICD-10-CM ) 03/02 Removed 03/02 Helen Salazar Other obesity due to excess calories Hx of malignant neoplasm of breast 085720671 (SNOMED CT) 03/02 Removed 03/02 Helen Salazar History of malignant neoplasm of breast Medications Medication Instructions Start Date Stop Date Generic Name NDC Provider DOXYCYCLINE MONOHYDRATE 100 MG CAPS Take 1 capsule by mouth twice a day 10/25 doxycycline monohydrate [id number] Arie Dougherty MD ceftriaxone recon soln 2GM IV Q24hrs [facility] 02/18 ceftriaxone recon soln Temi Norris Cubicin RF 800mg IV Q48hrs [facility] 02/18 daptomycin Temi Norris DOXYCYCLINE MONOHYDRATE 100 MG CAPS Take 1 capsule by mouth twice a day 02/03 doxycycline monohydrate 78865602667 Arie Dominguez RF 800mg IV Q48hrs [facility] 02/18 daptomycin Nubia Ervin ceftriaxone recon soln 2GM IV Q24hrs [facility] 02/18 ceftriaxone recon soln Nubiadeidre Ervin IPRATROPIUM-ALBUT MIKE 0.5-2.5 (3) MG/3ML SOLN 3 ml by mouth PRN 01/27 ipratropium-albut mike 77285689309 Nubia Minor Gaviscon 95-358 mg/15 mL suspension by mouth four times a day 30 mL aluminum hydrox-magnesium carb 54285063104 Nubia Minor IPRATROPIUM-ALBUT MIKE 0.5-2.5 (3) MG/3ML SOLN using nebulizer every six hours PRN ipratropium-albut mike 21937608450 Nubia Minor BASAGLAR KWIKPEN 100 UNIT/ML SOPN subcutaneously once a day insulin glargine 23155494218 Nubia Minor MUCUS RELIEF D 60-600 MG [id number] by mouth twice a day pseudoephedrine-g uaifenesin 82409352802 Nubia Minor VITAMIN B-12 100 MCG TABS by mouth once a day cyanocobalamin (vitamin b-12) 81646394961 Nubia Minor PERCOCET 5-325 MG TABS 1-2 tablet every four to six hours oxycodone-acetami nophen 37476564612 Nubia Minor BIOTIN 1000 MCG TABS by mouth once a day biotin 59574323671 Nubia Minor GABAPENTIN 800 MG TABS by mouth four times a day as needed gabapentin 21335935557 Nubia Minor ATORVASTATIN CALCIUM 40 MG TABS by mouth every morning Hold while on daptomycin atorvastatin 16851772463 Nubia Minor FERROUS SULFATE 325 (65 Fe) MG TABS by mouth once a day ferrous sulfate 38933632848 Nubia Minor VENLAFAXINE HCL 75 MG TABS by mouth twice a day venlafaxine 64313810375 Nubia Minor CITRACAL MAXIMUM 315-6.25 MG-MCG TABS by mouth twice a day calcium citrate-vitamin d3 14329900526 Nubia Poncho JANUMET XR 50-1000 MG QZ23W-CWL by mouth twice a day sitagliptin phos-metformin 65306263114 Nubia Minor GNP HYDROCORTISONE/AL OE 1 % CREA Apply to skin twice a day as needed hydrocortisone acetate 27460988205 Nubia Minor MS CONTIN 15 MG CR-TABS by mouth twice a day morphine 27872428652 Nubia Minor OMEPRAZOLE 20 MG TBEC 2 tablet by mouth once a day omeprazole 72563890770 Nubia Minor DOXYCYCLINE HYCLATE 100 MG TABS Take 1 tablet by mouth twice a day 01/11 doxycycline hyclate 30096837387 Nubia Minor CARVEDILOL 12.5 MG TABS by mouth twice a day carvedilol 19172857262 Nubia Minor PROMETHAZINE HCL 25 MG TABS by mouth three times a day as needed promethazine 31931519179 Nubia Minor TIZANIDINE HCL 4 MG TABS by mouth three times a day as needed tizanidine 87220746425 Nubia Minor LACTULOSE 10 GM/15ML SOLN 30 ml by mouth as needed lactulose 64930486457 Nubia Minor COLACE 100 MG CAPS by mouth twice a day as needed docusate sodium 86538905004 Nubia Minor XARELTO TABLET 15 mg 15 mg Take 1 by mouth once a day XARELTO TABLET 15 mg 15 mg Nubia Minor ANASTROZOLE 1 MG TABS by mouth once a day anastrozole 80031937690 Nubia Minor ACETAMINOPHEN 500 MG TABS by mouth every six hours PRN acetaminophen 49376914761 Nuiba Minor LOPERAMIDE HCL 2 MG CAPS by mouth once a day PRN loperamide 09591149741 Nubia Minor ASCORBIC ACID 500 MG TABS by mouth 0.5 tab am and 0.5 tab pm ascorbic acid (vitamin c) 78366879460 Nubia Minor BACLOFEN 10 MG TABS by mouth three times a day baclofen 00471671102 Nubia Minor BREO ELLIPTA 100-25 MCG/ACT AEPB every morning fluticasone furoate-vilantero l 92439674467 Nubia Minor BUMETANIDE 2 MG TABS by mouth twice a day bumetanide 95109669237 Nubia Minor CALCIUM 600 1500 (600 Ca) MG TABS by mouth twice a day calcium carbonate 75119264734 Nubia Minor D3 HIGH POTENCY 10 MCG (400 UNIT) TABS by mouth 2.5 units am and 2.5 units pm cholecalciferol (vitamin d3) 68956821103 Nubia Minor PLAVIX 75 MG TABS by mouth every morning clopidogrel 38149388711 Nubia Minor VITAMIN B-12 1000 MCG TABS by mouth every morning cyanocobalamin (vitamin b-12) 71241536907 Nubia Minor FLONASE ALLERGY RELIEF 50 MCG/ACT SUSP intranasally every morning fluticasone propionate 92590433808 Nubia Minor FOSAMAX 70 MG TABS by mouth once a week alendronate 17805802237 Nubia Minor GLIPIZIDE ER 2.5 MG [id number]-UGA by mouth every morning 0.5 tab glipizide 85022537975 Nubia Minor LANTUS SOLOSTAR 100 UNIT/ML SOPN 8 unit subcutaneously every night insulin glargine 33434883809 Nubia Minor IPRATROPIUM-ALBUT MIKE 0.5-2.5 (3) MG/3ML SOLN 3 ml by mouth PRN 01/27 ipratropium-albut mike 93735566549 Nubia Minor JARDIANCE 10 MG TABS by mouth every morning empagliflozin 03667359024 Nubia Minor MAGNESIUM OXIDE 400 MG TABS by mouth twice a day magnesium oxide 18525655973 Nubia Minor METFORMIN HCL 1000 MG TABS by mouth twice a day metformin 16259400859 Nubia Minor MULTI-VITAMIN HP/MINERALS CAPS by mouth once a day multivitamin,tx-m inerals 16709196201 Nubia Minor ONDANSETRON HCL 4 MG TABS by mouth twice a day PRN ondansetron hcl 80594109341 Nubia Minor PANTOPRAZOLE SODIUM 20 MG TBEC by mouth once a day pantoprazole 30066270166 Nubia Minor PREGABALIN 50 MG CAPS by mouth three times a day pregabalin 29176806739 Nubia Isaac SENNA 8.6 MG TABS by mouth 2 tabs PRN sennosides 02161028910 Nubia Isaac SPIRONOLACTONE 50 MG TABS by mouth once a day spironolactone 86244679892 Nubia Isaac TRAZODONE HCL 150 MG TABS by mouth once a day 2 tabs trazodone 83164581691 Nubia Isaac VALSARTAN 80 MG TABS by mouth twice a day valsartan 85316185894 Nubia Isaac VENLAFAXINE HCL ER 150 MG VN49Y-HRH by mouth every morning venlafaxine 09732014612 Nubia Isaac VANCOMYCIN HCL SOLR 1gm IV q 12 x 6wks [facility] [phone] 10/05 VANCOMYCIN HCL SOLR 63535466023 Libby Cabello JIMI MS CONTIN 15 MG CR-TABS by mouth twice daily 01/11 MORPHINE SULFATE 18240701828 Arie Duogherty MD PERCOCET 5-325 MG TABS 1-2 tabs, every four to six hours, do not exceed 4000mg of acetaminophen per day 01/11 OXYCODONE-ACETAMI NOPHEN 80583490179 Arie Dougherty MD [facility] IRON 325 (65 Fe) MG TABS by mouth daily 01/11 FERROUS SULFATE 59336223748 Arie Dougherty MD COLACE 100 MG CAPS by mouth twice daily as needed 02/19 DOCUSATE SODIUM 11676860972 Arie Dougherty MD DOXYCYCLINE HYCLATE 100 MG TABS take 1 tab po BID 02/19 DOXYCYCLINE HYCLATE 84671369179 Arie Dougherty MD XARELTO TABLET Take one by mouth once daily. 01/11 RIVAROXABAN TABS 91586531027 Arie Dougherty MD COUMADIN 5 MG ORAL TABLET by mouth, AC dinner 10/17 WARFARIN SODIUM 73497795049 Arie Dougherty MD VANCOMYCIN HCL SOLR 1gm IV q 12 x 6wks [facility] [phone] 08/22 VANCOMYCIN HCL SOLR 60417940589 [facility] VANCOMYCIN HCL SOLR 750 mg IV q 12 x 6wks [facility] [phone] 03/31 VANCOMYCIN HCL SOLR 50119899328 [facility] VANCOMYCIN HCL SOLR 750 mg IV q 12 x 6wks [facility] [phone] 08/22 VANCOMYCIN HCL SOLR 36747864895 Daily Lewis RN VENLAFAXINE HCL 75 MG TABS by mouth twice daily 01/11 VENLAFAXINE HCL 80868962724 Kulwant P PROMETHAZINE HCL 25 MG TABS by mouth three times a day as needed 01/11 PROMETHAZINE HCL 73079413319 Kulwant P B-12 100 MCG TABS by mouth daily 09/29 CYANOCOBALAMIN 30936398106 Kulwant P JANUMET XR 50-1000 MG [id number]-TQO by mouth twice daily 01/11 SITAGLIPTIN-METFO RMIN HCL 92852099106 Kulwant P TIZANIDINE HCL 4 MG TABS by mouth three times a day as needed 01/11 TIZANIDINE HCL 63103618104 Kulwant P GABAPENTIN 800 MG TABS by mouth four times a day as needed 01/11 GABAPENTIN 89213272995 Kulwant P CARVEDILOL 12.5 MG TABS by mouth twice daily 01/11 CARVEDILOL 43779953311 Kulwant P ANASTROZOLE 1 MG TABS by mouth daily 01/11 ANASTROZOLE 12128353030 Kulwant P CITRACAL MAXIMUM 315-6.25 MG-MCG TABS by mouth twice daily 01/11 CALCIUM CITRATE-VITAMIN D 57739223491 Kulwant P [facility] OMEPRAZOLE 20 MG TBEC 2 tabs by mouth once daily 01/11 OMEPRAZOLE 26343379636 Kulwant P BIOTIN 1000 MCG TABS by mouth daily 01/11 BIOTIN 26340334413 Kulwant P ATORVASTATIN CALCIUM 40 MG TABS by mouth at bedtime 01/11 ATORVASTATIN CALCIUM 93869102221 Kulwant P COUMADIN 5 MG ORAL TABLET by mouth, AC dinner 05/19 WARFARIN SODIUM 00387218284 Kulwant P LACTULOSE SOLN 30mL by mouth as needed 02/19 LACTULOSE SOLN 45129613933 Kulwant P HYDROCORTISONE ACETATE 1 % CREA apply topically twice a day as needed 10/25 HYDROCORTISONE ACETATE 30290130310 Kulwant P MS CONTIN 15 MG CR-TABS by mouth twice daily 11/20 MORPHINE SULFATE 53914567486 Kulwant P [facility] IRON 325 (65 Fe) MG TABS by mouth daily 11/20 FERROUS SULFATE 01030570027 Kulwant P COLACE 100 MG CAPS by mouth twice daily as needed 02/19 DOCUSATE SODIUM 35966447997 Kulwant P PERCOCET 5-325 MG TABS 1-2 tabs, every four to six hours, do not exceed 4000mg of acetaminophen per day 11/20 OXYCODONE-ACETAMI NOPHEN 65700577692 Kulwant P VANCOMYCIN HCL SOLR 1gm IV q 12 x 6wks [facility] [phone] 08/22 VANCOMYCIN HCL SOLR 74229391303 [facility] Medications Administered No information available. 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 Dietary management education, guidance, and counseling [...] Oral Antibiotic CPT-ca Continue IV antibiotics 2022 CPT-20886 CMP [id number] CBC with Differential 2022 CPT-44840 C- reactive protein [id number], [id number] CPK CPT-J7030 IV Fluids CPT-sl STAT Labs CPT-sl STAT Labs CPT-sl STAT Labs CPT-71501 C- reactive protein CPT-17517 Sedimentation Rate (ESR) 201 02/20/04 CPT-81510 Vancomycin Trough CPT-64736 CMP [id number] CBC with Differential 2015 CPT-14468 C- reactive protein CPT-40917 Sedimentation Rate (ESR) 201 01/31/26 CPT-ca Continue IV antibiotics 2015 CPT-wpc Weekly PICC Line Care 09/28 CPT-19818 CMP [id number] CBC with Differential 2015 CPT-40550 Vancomycin Trough CPT-88508 C- reactive protein CPT-50242 Sedimentation Rate (ESR) 201 01/31/07 CPT-cdpcr C-Diff PCR CPT-isi New IV antibiotic CPT-76485 PICC Line Insertion CPT-19258 [facility] [id number] CBC with Differential 2015 CPT-16212 C- reactive protein CPT-48836 Sedimentation Rate (ESR) 201 01/30/30 CPT-DC Discontinue IV antibiotics 2 CPT-PICREM PICC Removal CPT-ca Continue IV antibiotics 2015 CPT-87396 CMP [id number] CBC with Differential 2015 CPT-16734 C- reactive protein CPT-66347 Sedimentation Rate (ESR) 201 01/27/01 CPT-81356 Vancomycin Trough CPT-ca Continue IV antibiotics 2015 CPT-62311 CMP [id number] CBC with Differential 2015 CPT-05083 C- reactive protein CPT-04935 Sedimentation Rate (ESR) 201 01/27/20 CPT-61400 Vancomycin Trough CPT-ca Continue IV antibiotics 2015 [...]
--- OUTSIDE RECORDS SUMMARY | 2025-04-04 10:42 | XMS_ITS | Clinical Summary ---
Author Organization [facility] Address [address] [place] [address] Care Team Providers Care [facility] Pathology Professor Name Role Phone Cayla Erazo APRN, DNP Unavailable [phone] Vignesh Pickens MD Primary Care Provider [phone] Allergies Active Allergy Reactions Criticality Noted Date [...] without esophagitis 03/28/2017 CAD (coronary artery disease), wiyot coronary a rtery 03/28/2017 Controlled diabetes mellitus [...] Type Department Care Team Description 03/27/2025 Telephone [facility] [address] [place] [address] Doug Chapman MD 03/07/2025 10:00 AM EDT Office Visit [facility] [address], [address] [place] [address] Doug Chapman MD Gross hematuria 03/07/2025 Travel 03/04/2025 Results Follow-Up [facility] Medicine Virtual Dept. [address] [place] [address] Madonna Singleton MD 03/01/2025 Telephone [facility] [address] [address] Dental, Surgeon, 02/28/2025 8:15 AM EDT Office Visit [facility] [address] [place] [address] Bert Lim, DMD Caries (Primary Dx) 02/28/2025 Travel 02/27/2025 Travel 02/24/2025 Travel 02/22/2025 6:13 PM EDT - 03/02/2025 11:04 AM EDT Hospital Encounter [facility] Inpatient [address] [place] [address] Daniel Gordillo MD Salahuddin, Nawal, MD Powers, [...] left lower extremity above knee Discharge Disposition: [facility] Facility 02/22/2025 Travel 02/22/2025 Orders Only External Location [address] [place] [phone] Jordan Carl MD 02/22/2025 Orders Only External Location [address] [place] [address] Jordan Carl MD 02/22/2025 Orders Only External Location [address] [place] [address] Jordan Carl MD 02/22/2025 Orders Only External Location [address] [place] [address] Jordan Carl MD 01/31/2025 9:48 AM EDT Anesthesia Event [facility] OPERATING ROOM [address] [place] [address] Nj Sears MD 01/31/2025 8:55 AM EDT - 01/31/2025 10:10 AM EDT Surgery [facility] [address] [place] [address] Ceci Mitchell MD URETEROSCOPY,CYSTOSCO PY, RETROGRADE PYELOGRAM, BILATERAL STENT PLACEMENT [33540 (CPT )] 01/31/2025 8:03 AM EDT - 01/31/2025 1:39 PM EDT Hospital Encounter [facility] [address] [place] [address] Ceci Mitchell MD Urinary retention (Primary Dx); Gross hematuria Discharge Disposition: Home or Self Care 01/31/2025 Travel 01/24/2025 2:00 PM EDT [facility] [address] [place] [address] 01/24/2025 Travel 01/23/2025 Telephone [facility] [address], [address] [place] [address] Ceci Mitchell MD 01/17/2025 Telephone [facility] [address], [address] [place] [address] Ceci Mitchell MD 01/16/2025 Telephone [facility] [address], [address] [place] [address] Ceci Mitchell MD 01/03/2025 2:15 PM EDT - 01/03/2025 11:59 PM EDT Hospital Encounter [facility] [address]nd [place] [address] Gross hematuria Discharge Disposition: Home or Self Care 01/03/2025 Travel from Last 3 Months Immunizations Immunization Administration Dates Next Due Influenza, injectable, quadrivalent, preservativ e free 05/11/2016 [employer] 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 STORE DIRECTOR) to steady your nerves or to [...] Description 04/08/2025 9:20 AM EDT Office Visit [facility] [address] [place] [address] Cayla Erazo, BUMPER AND PAINTER, DNP [address] [place] [address] 05/16/2025 8:00 AM EDT Office Visit [facility] [place] [address] [facility], [address] [place] [address] Karly Gracia MD [address] [place] [address] 06/07/2025 1:00 PM EDT Office Visit [facility] [address] [place] [address] Tom Iraheta MD [address] [place] [address] Health Maintenance Due Date Last Done Comments Dental Oral Exam 1959 Dental Prophylaxis 1959 Dental X-Ray: Bitewings 1959 Dental X-Ray: Full Mouth 1959 [facility]-Bone Density Scan 1959 [facility]-Medicare Annual Wellness (AWV) 1959 [facility]-Infant/Child/Adol SDOH Screenings [...] - Risk 60-74 years 1-dose series) 2019 [id number] Vaccine (3 - Pfizer risk series) 10/28/2020 [...] this topic Medical Devices Implanted Type Area Production Machinist Device Identifier Shelf Expiration Date Model / Serial / Lot Stent Ureteral [employer] Monofilament 7f/24cm - [id number] Implanted:Qty: 1 on 01/31/2025 by Ceci Mitchell MD at [facility] Right: Kidney [employer]-[id number] 06/14/2027 [id number] / / [id number] Stent Ureteral [employer] Monofilament 7f/24cm - [id number] Implanted:Qty: 1 on 01/31/2025 by Ceci Mitchell MD at [facility] Left: Kidney [employer]-[id number] 07/02/2027 [id number] / / [id number] Procedures Procedure Name Priority Date/Time Associated Diagnosis [...] EDT EXTUBATION Routine 02/24/2025 9:49 AM EDT [place] CRITICAL CARE, E/M 30-74 MINUTES Routine 02/24/2025 7:08 AM EDT Acute respiratory failure with hypoxia and hypercapnia Acute kidney injury superimposed on CKD ([facility]) Chronic kidney disease, stage 3a ([facility]/HCC) Hyponatremia Acute encephalopathy Sepsis with encephalopathy without septic shock, due to unspecified organism ([facility]) Chronic diastolic (congestive) heart failure ([facility]) POCT GLUCOSE METER UNSOLICITED RESULTS [...] AND TREAT Routine 02/23/2025 10:25 AM EDT [place] CRITICAL CARE, E/M 30-74 MINUTES Routine 02/23/2025 9:10 AM EDT Acute respiratory failure with hypoxia and hypercapnia Acute kidney injury superimposed on CKD ([facility]) Chronic kidney disease, stage 3a ([facility]) Hyponatremia Acute encephalopathy Sepsis with encephalopathy without septic shock, due to unspecified organism ([facility]) VANCOMYCIN, RANDOM, PLASMA Routine 02/23/2025 8:34 AM [...] ANESTHESIA PLACEHOLDER Routine 01/31/2025 9:58 AM EDT [place] AN ELECTIVE ENDOTRACHEAL AIRWAY Routine 01/31/2025 9:58 AM EDT [place] CYSTO/URETERO/PYELOSC ,BX &/OR FULG LESN 01/31/2025 9:32 [...] - 99 mg/dL 03/02/2025 8:14 AM EDT [facility] Comment:Accuracy of a glucos e [...] for testing. Comment 03/02/2025 8:14 AM EDT [facility] Computer Help Desk Specialist ID Stefanie Frances 025 8:14 AM EDT [facility] Device ID [id number] 03/02/2025 8:14 AM EDT [facility] Specimen Type POC Capillary 03/02/2025 8:14 AM EDT [facility]ALTHCARE LAB Blood Capillary blood specimen / Unknown 03/02/2025 8:13 AM EDT 03/02/2025 8:14 AM EDT us Madonna Singleton MD LAB POINT OF CARE TE ST DOCKED DEVICE UNSOLICITED RESULTS Final Result Performing Organization Address City/[facility]/ZIP Co de Phone Number [facility] [address] [place] [address] * SEND HECTOR MESSAGE (03/01/2025 4:15 PM EDT) Only the most recent of2 resultswithin the time period is included. Urine Urine specimen obtained by clean catch procedure / Unknown Non-blood Collection / Unknown 03/01/2025 4:15 PM EDT 03/01/2025 4:26 PM EDT us Madonna Singleton MD LAB URINE ORDERABLES Final Resul t Performing Organization Address [facility] de Phone Number [facility] [address] [place] [address] * Urine Salmon Panel (03/01/2025 4:15 PM EDT) Only the most recent of2 resultswithin the time period is included. Extra Sent for Culture 03/01/2025 6:01 PM EDT [facility] Urine Urine specimen obtained by clean catch procedure / Unknown Non-blood Collection / Unknown 03/01/2025 4:15 PM EDT 03/01/2025 4:26 PM EDT us Madonna Singleton MD LAB URINE ORDERABLES Final Resul t Performing Organization Address [facility] de Phone Number [facility] [address] [place] [address] * Urinalysis Microscopic Examination (03/01/2025 4:15 PM EDT) Only the most recent of2 resultswithin the time period is included. Urine Urine specimen obtained by clean catch procedure / Unknown Non-blood Collection / Unknown 03/01/2025 4:15 PM EDT 03/01/2025 4:26 PM EDT us Madonna Singleton MD LAB URINE ORDERABLES Final Resul t Performing Organization Address City/[facility] Co de Phone Number [facility] [address] [place] [address] * (ABNORMAL) Urinalysis with reflex microscopic (Culture NOT Included) (03/01/2025 4:15 PM EDT) Only the most recent of2 resultswithin the time period is included. Color, Urine Yellow LAB URINALYSIS - AUTOMATED METHOD 03/01/2025 4:34 PM EDT [facility] Clarity, Urine Cloudy LAB URINALYSIS - AUTOMATED METHOD 03/01/2025 4:34 PM EDT [facility] Spec [place], Urine 1.008 1.005 - 1.030 LAB URINALYSIS [...] [facility] [address] [place] [address] * (ABNORMAL) Urine Culture (03/01/2025 4:15 PM EDT) Only the most recent of3 resultswithin the time period is included. Culture 10,000 - 100,000 CFU/mL Enterobacter cloacae complex(A) CHRISTIANO 03/05/2025 12:12 PM EDT [facility] Comment: This isolate has been identified using the FDA Approved [employer] [place] System Edited result: Previously reported as [...] <=0.25 ug/ml: Susceptible Enterobacter cloacae complex Meropenem CRHISTIANO <=0.5 ug/ml: Susceptible Enterobacter cloacae complex Nitrofurantoin [...] MICROBIOLOGY - GENERAL ORDER GIO Final Result [facility] [address] [place] [address] * (ABNORMAL) CBC and Differential (03/01/2025 4:08 [...] ORDERABLES Final Resul t Performing Organization Address City/[facility] Co de Phone Number [facility] [address] [place] [address] * Phosphorus, Plasma (03/01/2025 4:08 AM EDT) [...] ORDERABLES Final Resul t Performing Organization Address City/[facility]/ZIP Co de Phone Number [facility] [address] [place] [address] * Magnesium, Plasma (03/01/2025 4:08 AM EDT) [...] [facility] [address] [place] [address] * (ABNORMAL) Basic Metabolic Panel, Plasma (03/01/2025 [...] [facility] [address] [place] [address] * XR Panorex (02/27/2025 12:13 PM EDT) [...] in the posterior aspect of tooth #31. Mastic wear in tooth number 8, 9 and 23. No periapical lucency Procedure Note Lucas Cristobal MD - 02/27/2025 CLINICAL INDICATION: Odontogenic infection TECHNIQUE: XR PANOREX COMPARISON: None. FINDINGS: Rounded lucency in tooth #6. Aggressive destruction in the posterioraspect of tooth #31. Mastic wear in tooth number 8, 9 and [...] [facility] [address] [place] [address] * (ABNORMAL) Renal function panel (02/26/2025 4:51 AM EDT) [facility] Glucose, Plasma 156(H) 74 - 99 mg/dL [...] ORDERABLES Final Resul t Performing Organization Address City/[facility] Co de Phone Number [facility] [address] [place] [address] * ECG Adult (02/25/2025 6:38 PM EDT) Only the most recent of4 resultswithin the time period is included. EKG DIAGNOSIS CLASS Abnormal MUSE ECG Ventricular Rate 68 BPM MUSE ECG Atrial Rate 68 BPM MUSE ECG AZ Interval 198 ms MUSE ECG QRSD Interval 136 ms MUSE ECG QT Interval 450 ms MUSE ECG QTC Interval 478 ms MUSE ECG P Chappell 71 degrees MUSE ECG R Chappell 265 degrees MUSE ECG T Wave Chappell 50 degrees MUSE ECG Diagnosis Sinus rhythm with marked sinus arrhythmia MUSE ECG Diagnosis Right bundle branch block MUSE ECG Diagnosis Abnormal ECG MUSE ECG Diagnosis MUSE ECG Diagnosis Confirmed by Karly Gracia ([id number]) on 02/26/2025 3:20:41 PM MUSE ECG 02/25/2025 6:38 PM EDT 02/26/2025 3:20 PM EDT us Ludy Hill MD ECG ORDERABLES Final Result Performing Organization Address [facility] Co de Phone Number MUSE ECG * (ABNORMAL) Cystatin C (02/25/2025 1:36 AM EDT) Only the most recent of3 resultswithin the time period is included. Pathologist [facility] Cystatin C 2.37(H) 0.61 - 0.95 mg/L 02/25/2025 2:27 AM EDT [facility] Blood Venous blood specimen / Unknown Venipuncture / Unknown 02/25/2025 1:36 AM EDT 02/25/2025 1:57 AM EDT us Daniel Ralph MD LAB BLOOD ORDERABLES Final R esult Performing Organization Address City/[facility]/ZIP Co de Phone Number [facility] [address] [place] [address] * [place] CRITICAL CARE, E/M 30-74 MINUTES (02/24/2025 7:08 [...] [facility] [address] [place] [address] * (ABNORMAL) Procalcitonin (02/24/2025 1:01 AM EDT) [...] predict 28 day mortality risk. Please consult [email or web address] for more information. Test performed at [facility]. us Daniel Ralph MD LAB BLOOD ORDERABLES Final R esult [facility] [address] [place] [address] * (ABNORMAL) Blood gas panel, venous (02/24/2025 [...] [facility] [address] [place] [address] * (ABNORMAL) Comprehensive metabolic panel (02/24/2025 1:01 [...] ORDERABLES Final R esult Performing Organization Address City/[facility]/ZIP Co de Phone Number [facility] [address] [place] [address] * Sodium, urine, random (02/23/2025 3:12 PM EDT) Sodium, Urine 31 mmol/L 02/23/2025 4:03 PM EDT [facility] Urine Urine specimen from urinary conduit / Unknown Non-blood Collection / Unknown 02/23/2025 3:12 PM EDT 02/23/2025 3:24 PM EDT us Daniel Ralph MD LAB URINE ORDERABLES Final R esult Performing Organization Address [facility] de Phone Number [facility] [address] [place] [address] * Osmolality, urine (02/23/2025 3:12 PM EDT) Osmolality, Urine 408 50 - 1,200 mOsm/kg 02/23/2025 3:59 PM EDT [facility] Urine Urine specimen from urinary conduit / Unknown Non-blood Collection / Unknown 02/23/2025 3:12 PM EDT 02/23/2025 3:23 PM EDT us Daniel Ralph MD LAB URINE ORDERABLES Final R esult Performing Organization Address City/[facility] Co de Phone Number [facility] [address] [place] [address] * (ABNORMAL) Sodium (02/23/2025 3:04 PM EDT) [...] ORDERABLES Final R esult Performing Organization Address City/[facility]/[place] [address] * Osmolality (02/23/2025 3:04 PM EDT) Pathologist [facility] Osmolality, Serum 289 280 - 301 mOsm/Kg 02/23/2025 4:11 PM EDT [facility] Blood Venous blood specimen / Unknown Venipuncture / Unknown 02/23/2025 3:04 PM EDT 02/23/2025 3:13 PM EDT us Daniel Ralph MD LAB BLOOD ORDERABLES Final R esult Performing Organization Address [facility]/[place] [address] * Streptococcus pneumoniae and Legionella Urinary Antigen (02/23/2025 11:05 AM EDT) [facility] Legionella pneumophila serogroup 1 Antigen Result (Urine) Negative Negative 02/24/2025 7:01 AM EDT [facility] Streptococcus pneumoniae Antigen Result (Urine) Negative Negative 02/24/2025 7:01 AM EDT [facility] Urine Urine specimen obtained by clean catch procedure / Unknown Non-blood Collection / Unknown 02/23/2025 11:05 AM EDT 02/23/2025 11:16 AM EDT us Daniel Ralph MD LAB MICROBIOLOGY - GENERAL O RDERABLES Final Result Performing Organization Address [facility]/[place] [address] * [place] CRITICAL CARE, E/M 30-74 MINUTES (02/23/2025 9:10 [...] [facility] [address] [place] [address] * (ABNORMAL) Nasopharyngeal Respiratory Panel (02/23/2025 2:05 AM EDT) Human Rhinovirus/Ent erovirus PCR Result Detected( A) Not Detected 02/23/2025 5:07 AM EDT [facility] Swab Nasopharyngeal structure / Unknown Non-blood [...] Respiratory PCR Panel is performed using the Aseteklex instrument. This test is FDA approved for use with Nasopharyngeal swabs only. This test is used for clinical purposes. It should not be regarded as investigational or for research. The [facility] is certified under the Clinical Laboratory Improvement Amendments of 1988 (CLIA-88) as qualified to perform high complexity clinical laboratory testing. Daniel Ralph MD LAB MICROBIOLOGY - GENERAL O RDERABLES Final Result [facility] [address] [place] [address] * (ABNORMAL) Methicillin Resistant Staphylococcus aureus (MRSA) by PCR (02/23/2025 2:05 AM EDT) Methicillin Resistant Staphylococcus aureus (MRSA) by PCR Detected( A) Not Detected 02/23/2025 4:19 AM EDT [facility] Swab Both anterior nares / Unknown [...] O RDERABLES Final Result Performing Organization Address [facility] de Phone Number [facility] [address] [place] [address] * (ABNORMAL) Troponin T, High Sensitivity, 2 [...] ORDERABLES Final R esult Performing Organization Address [facility] de Phone Number [facility] [address] [place] [address] * Anti Xa Level Low Molecular Weight [...] ORDERABLES Final R esult Performing Organization Address [facility]/ZIP Co de Phone Number [facility] [address] [place] [address] * (ABNORMAL) Troponin T, High Sensitivity, 0 [...] ORDERABLES Final R esult Performing Organization Address [facility] Co de Phone Number [facility] [address] [place] [address] * (ABNORMAL) Quantitative BAL/PAL/Bronch Wash Culture and Gram StainProtected Alveolar Lavage (02/23/2025 12:00 AM EDT) Pathologist [facility] Culture [id number] CFU/mL Mixed upper respiratory jesus(A) 02/24/2025 12:09 [...] O RDERABLES Final Result Performing Organization Address City/[facility] Co de Phone Number [facility] [address] [place] [address] * (ABNORMAL) N-Terminal Probnp (02/22/2025 10:03 PM EDT) Only the most recent of2 resultswithin the time period is included. N-Terminal, PROBNP, Plasma 1,542(H) 0 - 899 pg/mL 02/22/2025 10:48 PM EDT [facility] Blood Venous blood specimen / Unknown Venipuncture / Unknown 02/22/2025 10:03 PM EDT 02/22/2025 10:11 PM EDT Bobby Parra MD LAB BLOOD ORDERABLES Final R esult Performing Organization Address [facility] [place] [address] * Maira auris Surveillance by PCR (02/22/2025 [...] developed and its performance characteristics determined by [facility] as appropriate for clinical purposes. This assay has not been cleared or approved by the FDA, but is performed in a CLIA regulated laboratory that is qualified to perform high-complexity testing. Bobby Parra MD LAB MICROBIOLOGY - GENERAL O RDERABLES Final Result Performing Organization Address City/[facility]/ZIP Co de Phone Number [facility] [address] [place] [address] * (ABNORMAL) Multi Drug Resistance Test (02/22/2025 10:02 PM EDT) Culture Methicillin-Resist ant Staphylococcus aureus(AA) 02/24/2025 6:58 AM EDT [facility] Swab (Nares and Samantha Rectal) Non-blood Collection / Unknown 02/22/2025 10:02 PM EDT 02/22/2025 10:16 PM EDT Narrative [facility] - 02/24/2025 6:58 AM EDT This test was developed and its performance characteristics determined by the [facility]biology [facility]. Although the media is FDA-approved, it is not FDA-approved for all specimen types submitted. The FDA has determined that such clearance or approval is not necessary. This test is used for surveillance purposes. It should not be regarded as investigational or for research. The [facility] is certified under the Clinical Laboratory Improvement Amendments of 1988 (CLIA-88) as qualified to perform high complexity clinical laboratory testing. Bobby Parra MD LAB MICROBIOLOGY - GENERAL O RDERABLES Final Result Performing Organization Address City/[facility] Co de Phone Number [facility] [address] [place] [address] * Drug abuse screen (02/22/2025 10:01 PM [...] PM EDT 02/22/2025 10:11 PM EDT Daniel Grodillo MD LAB URINE ORDERABLES Final Result Performing Organization Address City/State/[facility] Co de Phone Number [facility] [address] [place] [address] * (ABNORMAL) Fentanyl Urine Confirm (02/22/2025 10:01 [...] developed and its performance characteristics determined by [facility]. It has not been cleared or approved by the FDA. The laboratory is regulated under CLIA as qualified to perform high-complexity testing. This test is used for clinical purposes. Testing is performed at the [facility], [facility]. Daniel Gordillo MD LAB URINE ORDERABLES Final Result [facility] [address] [place] [address] * (ABNORMAL) POCT arterial blood gas gem (02/22/2025 9:05 PM EDT) pH, Arterial 7.45(H) 7.31 - 7.42 02/22/2025 9:06 PM EDT [facility] pCO2, Arterial 37 35 - 48 mm Hg 02/22/2025 9:06 PM EDT [facility] pO2, Arterial 86 >80 mm Hg 02/22/2025 9:06 PM EDT [facility] SO2, Arterial 98 94 - 98 % 02/22/2025 9:06 PM EDT [facility] FIO2 60.0 % 02/22/2025 9:06 PM EDT [facility] Base Excess, Arterial 1.7 -2 - 3 mmol/L 02/22/2025 9:06 PM EDT [facility] HCO3, Arterial 25.7 22 - 26 mmol/L 02/22/2025 9:06 PM EDT [facility] Total Hemoglobin, Arterial, Whole Blood 9.1(L) 11.2 - 15.7 g/dL 02/22/2025 9:06 PM EDT [facility] Hematocrit, Arterial 27.0(L) 34.0 - 45.0 % 02/22/2025 9:06 PM EDT [facility] Sodium, Arterial 125(L) 136 - 145 mmol/L 02/22/2025 9:06 PM EDT [facility] [facility] Potassium, Arterial 4.9 3.6 - 4.9 mmol/L 02/22/2025 9:06 PM EDT [facility] Comment:Hemolyzed, result ma y be falsely increased. Chloride, Whole Blood 95(L) 97 - 107 mmol/L 02/22/2025 9:06 PM EDT [facility] Glucose, Arterial 116(H) 74 - 99 mg/dL 02/22/2025 9:06 PM EDT [facility] Ionized Calcium, Arterial 4.8 4.6 - 5.1 mg/dL 02/22/2025 9:06 PM EDT [facility] Lactate, Arterial 0.8 0.5 - 1.6 mmol/L 02/22/2025 9:06 PM EDT [facility] Body Temperature 37.0 Celsius 02/22/2025 9:06 PM EDT [facility] pH, Temp Corrected, Arterial 7.45(H) 7.31 - 7.42 02/22/2025 9:06 PM EDT [facility] pCO2, Temp Corrected, Arterial 37 35 - 48 mm Hg 02/22/2025 9:06 PM EDT [facility] pO2, Temp Corrected, Arterial 86 >80 mm Hg 02/22/2025 9:06 PM EDT [facility] Computer Help Desk Specialist ID Slim Morton 02/22/2025 9:06 PM EDT [facility] Blood, Arterial Whole blood specimen / Unknown 02/22/2025 9:05 PM EDT 02/22/2025 9:06 PM EDT Daniel Ralph MD LAB POINT OF CARE TE ST DOCKED DEVICE UNSOLICITED RESULTS Final Result Performing Organization Address City/[facility]/ZIP Co de Phone Number [facility] [address] [place] [address] * Blood Culture (Aerobic/Anaerobet Set) (02/22/2025 8:55 PM EDT) Pathologist [facility] Culture No growth at day 5 02/27/2025 [...] Result [facility] [address] [place] [address] * Ionized calcium, serum (02/22/2025 8:36 PM EDT) Ionized Calcium, Serum 4.8 4.6 - 5.3 mg/dL LAB HEMATOLOGY METHOD 02/22/2025 9:42 PM EDT [facility] Blood Venous blood specimen / Unknown Venipuncture / Unknown 02/22/2025 8:36 PM EDT 02/22/2025 8:53 PM EDT Bobby Parra MD LAB BLOOD ORDERABLES Final R esult [facility] [address] [place] [address] * XR Chest 1 View (02/22/2025 7:05 [...] Ethyl Alcohol Plasma (02/22/2025 6:41 PM EDT) [facility] Ethanol Plasma <10 <10 mg/dL 02/22/2025 8:13 PM EDT [facility] Blood Venous blood specimen / Unknown Venipuncture / Unknown 02/22/2025 6:41 PM EDT 02/22/2025 8:00 PM EDT Narrative [facility] - 02/22/2025 8:13 PM EDT Enzymatic Assay: Performed on Hector Rufus. Daniel Gordillo MD LAB BLOOD ORDERABLES Final Result [facility] [address] [place] [address] * Thyroid Stimulating Hormone, Plasma (02/22/2025 6:41 PM EDT) Thyroid Stimulating Hormone, Plasma 1.03 0.40 - 4.20 uIU/mL 02/22/2025 7:24 PM EDT [facility] Blood Venous blood specimen / Unknown Venipuncture / Unknown 02/22/2025 6:41 PM EDT 02/22/2025 6:47 PM EDT Daniel Gordillo MD LAB BLOOD ORDERABLES Final Result Performing Organization Address [facility] Co de Phone Number [facility] [address] [place] [address] * Free T4, Plasma (02/22/2025 6:41 PM EDT) Free T4, Plasma 1.3 0.8 - 1.7 ng/dL 02/22/2025 7:24 PM EDT [facility] Blood Venous blood specimen / Unknown Venipuncture / Unknown 02/22/2025 6:41 PM EDT 02/22/2025 6:47 PM EDT Daniel Gordillo MD LAB BLOOD ORDERABLES Final Result Performing Organization Address [facility] [place] [address] * (ABNORMAL) Hemoglobin A1c (02/22/2025 6:41 PM [...] Adults <6.0% Children and Adolescents <7.5% Source: [place] [employer]. Standards of medical care in diabetes,2017. Diabetes Care.2017:40 (suppl 1):S1-S135. us Bobby Parra MD LAB BLOOD ORDERABLES Final R esult [facility] [address] [place] [address] * (ABNORMAL) POCT venous blood gas gem (02/22/2025 6:37 PM EDT) pH, Venous 7.28(L) 7.32 - 7.43 02/22/2025 6:38 PM EDT [facility] pCO2, Venous 60(HH) 37 - 52 mm Hg 02/22/2025 6:38 PM EDT [facility] pO2, Venous 41(H) 25 - 40 mm Hg 02/22/2025 6:38 PM EDT [facility] SO2, Venous 72 65 - 80 % 02/22/2025 6:38 PM EDT [facility] Base Excess/Deficit, Venous 0.8 -2 - 3 mmol/L 02/22/2025 6:38 PM EDT [facility] HCO3, Venous 28.2(H) 22 - 26 mmol/L 02/22/2025 6:38 PM EDT [facility] Hemoglobin, Venous 9.2(L) 11.2 - 15.7 g/dL 02/22/2025 6:38 PM EDT [facility] Hematocrit, Venous 28.0(L) 34.0 - 45.0 % 02/22/2025 6:38 PM EDT [facility] Sodium, Venous 126(L) 136 - 145 mmol/L 02/22/2025 6:38 PM EDT [facility] Potassium, Venous 4.6 3.6 - 4.9 mmol/L 02/22/2025 6:38 PM EDT [facility] Comment:Hemolyzed, result ma y be falsely increased. POCT Chloride, Venous 94(L) 97 - 107 mmol/L 02/22/2025 6:38 PM EDT [facility] Glucose, Venous 139(H) 74 - 99 mg/dL 02/22/2025 6:38 PM EDT [facility] Ionized Calcium, Venous 4.9 4.6 - 5.1 mg/dL 02/22/2025 6:38 PM EDT [facility] Lactate, Venous 0.6 0.5 - 2.2 mmol/L 02/22/2025 6:38 PM EDT [facility] Body Temperature 37.0 Celsius 02/22/2025 6:38 PM EDT [facility] pH, Temp Corrected, Venous 7.28(L) 7.32 - 7.43 02/22/2025 6:38 PM EDT [facility] pCO2, Temp Corrected, Venous 60(HH) 37 - 52 mm Hg 02/22/2025 6:38 PM EDT [facility] pO2, Temp Corrected, Venous 41(H) 25 - 40 mm Hg 02/22/2025 6:38 PM EDT [facility] Computer Help Desk Specialist ID Joao Jackson 02/22/2025 6:38 PM EDT [facility] Blood, Venous Whole blood specimen / Unknown 02/22/2025 6:37 PM EDT 02/22/2025 6:38 PM EDT us Generic Provider Poct LAB POINT OF CARE TEST DOCKED DEVICE UNSOLICITED RESULTS Final Result Performing Organization Address City/State/[facility] Co de Phone Number [facility] [address] [place] [address] * INTUBATION (02/22/2025 6:13 PM EDT) Narrative [...] Growth Maira glabrata(A) 02/08/2025 11:50 AM EDT [facility] Urine Urinary bladder structure / Unknown 01/31/2025 10:23 AM EDT 01/31/2025 11:38 AM EDT Comment:Pre-op diagnosis: Gross hematuria us Ceci Mitchell MD LAB MICROBIOLOGY - GENERAL O RDERABLES Final Result [facility] [address] [place] [address] * [place] AN ELECTIVE ENDOTRACHEAL AIRWAY, PB ANESTHESIA PLACEHOLDER (01/31/2025 9:58 AM EDT) Narrative Migue Seay CRNA - 01/31/2025 9:58 AM EDT Migue Seay CRNA 01/31/2025 10:45 AM Airway Date/Time: 01/31/2025 9:58 AM Reason: elective Airway not difficult General Information and Staff Patient location during procedure: OR TRANSCRIBING MACHINE MECHANIC: Migue Seay CRNA Performed: TRANSCRIBING MACHINE MECHANIC Patient Condition Indications for airway management: anesthesia [...] following split bolus administration of IV contrast, [id number], 150 mL. Reformatted images in the coronal [...] MD on 01/03/2025 3:33 PM Cayla Erazo BUMPER AND PAINTER, DNP IMG CT PROCEDURES Final Result * Hepatitis C Antibody - ED (08/15/2024 5:35 AM EST) Hepatitis C Antibody Negative Negative 08/15/2024 7:08 AM EST [facility] Blood Venous blood specimen / Unknown Venipuncture / Unknown 08/15/2024 5:35 AM EST 08/15/2024 6:06 AM EST Marcy Zhong MD LAB BLOOD ORDERABLES Final Resu lt [facility] [address] [place] [address] * Cytology (04/10/2013 12:00 AM EDT) Specimen from axilla structure obtained by fine needle aspiration biopsy (specimen) 04/10/2013 04/10/2013 2:2 3 PM EDT Narrative [facility] - 04/10/2013 3:59 PM EDT [facility] MR #: [id number] [facility] [place], [place] [address] 1960 (Age: 52) FW Collect Date: 04/10/2013 00:00 Receipt Date: 04/10/2013 14:23 Page 1 DEPARTMENT OF PATHOLOGY AND LABORATORY MEDICINE CYTOPATHOLOGY REPORT Email: [email or web address] ATTENDING MD/Practitioner: Kimmie Aguilera MD Service: BCC [...] 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 Jonatan [...] RECEPTOR POSITIVE STATUS (ER POSITIVE) F: A; 66747 ASP INTER, 25170, [address]23 SNOMED CODES: A; [id number] [id number] [id number] P1149 [id number] A resident has participated in this service. A pathologist has performed and is responsible for the reported pathologic evaluation. 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 Yes Care Teams Forest Pathology Professor Relationship Specialty Start Date End Date Vignesh Pickens MD [address] [place] [address] PCP - General 12/31/24 Cayla Erazo, BUMPER AND PAINTER, DNP [address] [place] [address] Nurse Practitioner Urology 12/20/24
--- OUTSIDE RECORDS SUMMARY | 2025-04-04 10:43 | XMS_ITS | Encounter Summary ---
Author Organization [facility] Address [address] [place] [address] Care Team Providers Care Kapok Machine Operator Name Role Phone Cayla Erazo APRN, DNP Unavailable [phone] Vignesh Pickens MD Primary Care Provider [phone] Encounter Details Date Type Department Care Team [...] drink first t rodríguez in the morning (EYE-5TH GRADE TEACHER) to steady your nerves or to [...] Description 04/08/2025 9:20 AM EDT Office Visit [facility] [address], 2nd [place] [address] Cayla Erazo APRN, DNP [address] [address] 05/16/2025 8:00 AM EDT [facility] Visit [facility] [place] [address] [facility], [address] [place] [address] Karly Gracia MD [address] [place] [address] 06/07/2025 1:00 PM EDT [facility] [address] [facility] [address] [place] [address] Tom Iraheta MD [address] [place] [address] documented as of this encounter [...] documented as of this encounter Care Teams Kapok Machine Operator Relationship Specialty Start Date End Date Vignesh Pickens MD [address] [place] [address] PCP - General 12/31/24 Cayla Erazo APRN, FREDERICK [address] [facility] [place] [address] Nurse Practitioner Urology 12/20/24 documented as of this encounter
--- OUTSIDE RECORDS SUMMARY | 2025-04-04 10:43 | XMS_ITS | Referral Summary ---
Author Organization [employer] ([place], [place], [place], [place]) Address [address] [place] [address] Care Team Providers Care Blending Coordinator Name Role Phone [facility], Provider Not In The System MD Primary [...] Do you speak a language other than Turkish at ho me? No 12/09/2023 Do you [...] nal Result [facility] [address] [place] [address], [facility] [phone] from Last 3 Months or Most Recently Relevant to Health Maintenance Insurance MEDICARE PART A B MEDICAID OF [place] Advance Directives For more information, please contact: [phone] * Full Code (Latest Code Status on [...] Sister First Alternate Healthcare Decision-Maker Care Teams Blending Coordinator Relationship Specialty Start Date End Date [facility], Provider Not In The System, [place] [address] PCP - General 10/05/23
--- OUTSIDE RECORDS SUMMARY | 2025-04-04 10:43 | XMS_ITS | Encounter Summary ---
Author Organization [facility] Address [address] [place] [address] Care Team Providers Care Hogshead Mat Assembler Name Role Phone Cayla Erazo APRN, DNP Unavailable [phone] Vignesh Pickens MD Primary Care Provider [phone] Encounter Details Date Type Department Care Team (Late st Contact Info) Description 03/27/2025 Telephone [facility] [address] [place] [address] Doug Chapman MD [address] [place] [address] Social History Tobacco Use Types [...] drink first t rodríguez in the morning (EYE-LEGAL ARBITRATOR) to steady your nerves or to get [...] excluded. Recommend cysto. Best contact number: Other: [phone] ext [phone] Optimal time of day to [...] will receive notification of the communication/outcome via [employer]. documented in this encounter Plan of Treatment Upcoming Encounters Date Type Department Care Team (Late st Contact Info) Description 04/08/2025 9:20 AM EDT Office Visit [facility] [address] [place] [address] Cayla Erazo, LIZANDRO, DNP [address] [place] [address] 05/16/2025 8:00 AM EDT Office Visit [facility] [place] [address] [facility], [address] [place] [address] Karly Gracia MD [address] [place] [address] 06/07/2025 1:00 PM EDT Office Visit [facility] [address] [place] [address] Tom Iraheta MD [address] [place] [address] documented as of this encounter [...] documented as of this encounter Care Teams Hogshead Mat Assembler Relationship Specialty Start Date End Date Vignesh Pickens MD [address] [place] [address] PCP - General 12/31/24 Cayla Erazo APRN, DNP [address] [facility] [address] [place] [address] Nurse Practitioner Urology 12/20/24 documented as of this encounter
--- OUTSIDE RECORDS SUMMARY | 2025-04-04 10:43 | XMS_ITS | Encounter Summary ---
Author Organization [facility] Address [address] [place] [address] Care Team Providers Care Nuclear Medicine Specialist Name Role Phone Cayla Erazo APRN, DNP Unavailable [phone] Vignesh Pickens MD Primary Care Provider [phone] Encounter Details Date Type Department Care Team [...] drink first t rodríguez in the morning (EYE-HEALTH SAFETY COORDINATOR) to steady your nerves or to [...] Description 04/08/2025 9:20 AM EDT Office Visit [facility] [address]nd [place] [address] Cayla Erazo, SIGN LANGUAGE INTERPRETER, DNP [address] [place] [address] 05/16/2025 8:00 AM EDT Office Visit [facility] [place] [address] [facility], [address] [place] [address] Karly Gracia MD [address] [place] [address] 06/07/2025 1:00 PM EDT Office Visit [facility] [address] [place] [address] Tom Iraheta MD [address] [place] [address] documented as of this encounter [...] documented as of this encounter Care Teams Nuclear Medicine Specialist Relationship Specialty Start Date End Date Vignesh Pickens MD [address] [place] [address] PCP - General 12/31/24 Cayla Erazo APRN, FREDERICK [address] [facility] [address] [place] [address] Nurse Practitioner Urology 12/20/24 documented as of this encounter
--- OUTSIDE RECORDS SUMMARY | 2025-04-04 10:43 | XMS_ITS | Encounter Summary ---
Author Organization [facility] Address [address] [place] [place] [address] Care Team Providers Care Head Of Housekeeping Name Role Phone Daniel Barba MD Primary Care Provider [phone] Judy Huff CYBER SECURITY ADMINISTRATOR Unavailable Unavailabl e Cayla Erazo APRN, DNP Unavailable [phone] Vignesh Pickens MD Primary Care Provider + [phone] Encounter Details Date Type Department Care Team (Late Contact Info) Description 08/11/2022 Orders Only External Location [address] [place] [address] Provider, External Social History Tobacco Use Types [...] Office Visit [place] [facility] [address] [place] [address] Cayla Erazo APRN, FREDERICK [address] [place] [address] 05/16/2025 8:00 AM EDT Office Visit [facility] [place] [address] [facility], [address] [place] [address] Karly Gracia MD [address] [place] [address] 06/07/2025 1:00 PM EDT Office Visit [facility] [address] [place] [address] Tom Iraheta MD [address] [place] [address] documented as of this encounter [...] of this encounter Care Teams Head Of Housekeeping Relationship Specialty Start Date End Date Daniel Barba MD [address] [place] [address] PCP - General 01/02/21 12/30/24 Vignesh Pickens MD [address] [place] [address] PCP - General 12/31/24 Judy Huff LPN [facility] TCM Nurse 08/24/24 08/24/24 Cyala Erazo APRN, DNP [address] [place] [address] [address] Nurse Practitioner Urology 12/20/24 documented as of this encounter
--- OUTSIDE RECORDS SUMMARY | 2025-04-04 10:43 | XMS_ITS | Clinical Summary ---
Author Organization [employer] ([place], [place], [place], [place]) Address [address] [place] [address] Care Team Providers Care Scrum Coach Name Role Phone [facility], Provider Not In The System MD Primary [...] Do you speak a language other than Panamanian at ho me? No 12/09/2023 Do you [...] [facility] [address] [phone] from Last 3 Months or Most Recently Relevant to Health Maintenance Insurance Count includes the [facility] [place] [address] MEDICARE PART A B MEDICAID OF [place] Advance Directives For more information, please contact: [phone] * Full Code (Latest Code Status on [...] Name Relationship Healthcare Agent Relationshi p Communication [place] Dante Sister First Alternate Healthcare Decision-Maker Care Teams Scrum Coach Relationship Specialty Start Date End Date [facility], Provider Not In The System, [place] [address] PCP - General 10/05/23
--- OUTSIDE RECORDS SUMMARY | 2025-04-04 10:43 | XMS_ITS | Encounter Summary ---
Author Organization [facility] Address [address] [place] [address] Care Team Providers Care Quality Review Specialist Name Role Phone Cayla Erazo APRN, FREDERICK Unavailable [phone] Vignesh Pickens MD Primary Care Provider [phone] Encounter Details Date Type Department Care Team (Late st Contact Info) Description 03/04/2025 Results Follow-Up [facility] Medicine Virtual Dept. [address] [place] [address] Madonna Singleton MD [address] [place] [address] Social History Tobacco Use Types Packs/Day Years [...] drink first t rodríguez in the morning (EYE-POLYMERIZATION OVEN OPERATOR) to steady your nerves or to [...] Description 04/08/2025 9:20 AM EDT Office Visit [facility] [address] [place] [address] Cayla Erazo, SPORTS EQUIPMENT REPAIRER, DNP [address] [place] [address] 05/16/2025 8:00 AM EDT Office Visit [facility] [place] [address] [facility], [address] [place] [address] Karly Gracia MD [address] [place] [address] 06/07/2025 1:00 PM EDT Office Visit [facility] [address] [place] [address] Tom Iraheta MD [address] [place] [address] documented as of this encounter Visit Diagnoses [...] as of this encounter Care Teams Quality Review Specialist Relationship Specialty Start Date End Date Vignesh Pickens MD [address] [place] [address] PCP - General 12/31/24 Cayla Erazo APRN, DNP [address] [place] [address] Nurse Practitioner Urology 12/20/24 documented as of this encounter
--- OUTSIDE RECORDS SUMMARY | 2025-04-04 10:44 | XMS_ITS | Encounter Summary ---
Author Organization [facility] Address [address] [place] [address] Care Team Providers Care Case Mgr Name Role Phone Cayla Erazo APRN, DNP Unavailable [phone] Vignesh Pickens MD Primary Care Provider [phone] Encounter Details Date Type Department Care Team [...] in the [facility], were you homeless or living [...] drink first t rodríguez in the morning (EYE-MUTUEL TELLER) to steady your nerves or to get [...] Office Visit [facility] [address] [place] [address] Cayla Erazo, HORSE BREAKER, DNP [address] [place] [address] 05/16/2025 8:00 AM EDT Office Visit [facility] [place] [address] [facility], [address] [place] [address] Karly Gracia MD [address] [place] [address] 06/07/2025 1:00 PM EDT [facility] [address] [facility] [address] [place] [address] Tom Iraheta MD [address] [place] [address] documented as of this encounter [...] documented as of this encounter Care Teams Case Mgr Relationship Specialty Start Date End Date Vignesh Pickens MD [address] [place] [address] PCP - General 12/31/24 Cayla Erazo APRN, FREDERICK [address] [place] [address] Nurse Practitioner Urology 12/20/24 documented as of this encounter
--- OUTSIDE RECORDS SUMMARY | 2025-04-04 10:44 | XMS_ITS | Encounter Summary ---
Author Organization [facility] Address [address] [place] [address] Care Team Providers Care Galley Boy Name Role Phone Cayla Erazo APRN, DNP Unavailable [phone] Vignesh Pickens MD Primary Care Provider [phone] Encounter Details Date Type Department Care Team (Late st Contact Info) Description 02/22/2025 Orders Only External Location [address] [place] [address] Jordan Carl MD [address] [place] [address] Social History Tobacco Use Types [...] drink first t rodríguez in the morning (EYE-CASINO MANAGER) to steady your nerves or to [...] Description 04/08/2025 9:20 AM EDT Office Visit [place] [facility] [address] [place] [address] Cayla Erazo, AUTOMOBILE SALESMAN, DNP [address] [facility] [address] [place] [address] 05/16/2025 8:00 AM EDT [facility] Visit [facility] [place] [address] [facility], [address] [place] [address] Karly Gracia MD [address] [place] [address] 06/07/2025 1:00 PM EDT [facility] Visit [facility] [address] [place] [address] Tom Iraheta MD [address] [place] [address] documented as of this encounter [...] documented as of this encounter Care Teams Galley Boy Relationship Specialty Start Date End Date Vignesh Pickens MD [address] [place] [address] PCP - General 12/31/24 Cayla Erazo APRN, DNP [address] [place] [address] Nurse Practitioner Urology 12/20/24 documented as of this encounter
--- OUTSIDE RECORDS SUMMARY | 2025-04-04 10:44 | XMS_ITS | Encounter Summary ---
Author Organization [facility] Address [address] [place] [address] Care Team Providers Care Concession Attendant Name Role Phone Cayla Erazo APRN, DNP Unavailable [phone] Vignesh Pickens MD Primary Care Provider [phone] Encounter Details Date Type Department Care Team (Late st Contact Info) Description 02/22/2025 Orders Only External Location [address] [place] [address] Jordan Carl MD [address] [place] [address] Social History Tobacco Use Types [...] drink first t rodríguez in the morning (EYE-SBA UNDERWRITER) to steady your nerves or to [...] Description 04/08/2025 9:20 AM EDT Office Visit [facility] [address], [address] [place] [address] Cayla Erazo, PICKERS MATERIAL HANDLERS, DNP [address] [facility] [address] [place] [address] 05/16/2025 8:00 AM EDT Office Visit [facility] [place] [address] [facility], [address] [place] [address] Karly Gracia MD [address] [place] [address] 06/07/2025 1:00 PM EDT Office Visit [facility] [address] [place] [address] Tom Iraheta MD [address] [place] [address] documented as of this encounter [...] documented as of this encounter Care Teams Concession Attendant Relationship Specialty Start Date End Date Vignesh Pickens MD [address] [place] [address] PCP - General 12/31/24 Cayla Erazo APRN, DNP [address] [place] [address] Nurse Practitioner Urology 12/20/24 documented as of this encounter
--- OUTSIDE RECORDS SUMMARY | 2025-04-04 10:44 | XMS_ITS | Encounter Summary ---
Author Organization [facility] Address [address] [place] [address] Care Team Providers Care Cold Rolling Machine Setter Name Role Phone Cayla Erazo APRN, DNP Unavailable [phone] Vignesh Pickens MD Primary Care Provider [phone] Encounter Details Date Type Department Care Team [...] drink first t rodríguez in the morning (EYE-COMMUNITY BOARD MEMBER) to steady your nerves or to get [...] Description 04/08/2025 9:20 AM EDT Office Visit [facility] [address] [place] [address] Cayla Erazo, MEDICAL ASSISTANT SUPERVISOR, DNP [address] [place] [address] 05/16/2025 8:00 AM EDT Office Visit [facility] [place] [address] [facility], [address] [place] [address] Karly Gracia MD [address] [place] [address] 06/07/2025 1:00 PM EDT Office Visit [facility] [address] [facility] [address] [place] [address] Tom Iraheta MD [address] [place] [address] documented as of this encounter [...] as of this encounter Care Teams Cold Rolling Machine Setter Relationship Specialty Start Date End Date Vignesh Pickens MD [address] [place] [address] PCP - General 12/31/24 Cayla Erazo APRN, [place] [address] [place] [address] Nurse Practitioner Urology 12/20/24 documented as of this encounter
--- OUTSIDE RECORDS SUMMARY | 2025-04-04 10:44 | XMS_ITS | Encounter Summary ---
Author Organization [facility] Address [address] [place] [address] Care Team Providers Care Commercial Technician Name Role Phone Daniel Barba MD Primary Care Provider [phone] Cayla Erazo APRN, [facility] Unavailable [phone] Vignesh Pickens MD Primary Care Provider [phone] Encounter Details Date Type Department Care Team (Late st Contact Info) Description 10/19/2024 Orders Only External Location [address] [place] [address] Provider, External Social History Tobacco Use Types [...] drink first t rodríguez in the morning (EYE-BI CONSULTANT) to steady your nerves or to [...] Description 04/08/2025 9:20 AM EDT Office Visit [place] [facility] [address] [place] [address] Cayla Erazo, EYEGLASS FRAMES POLISHER, DNP [address] [place] [address] 05/16/2025 8:00 AM EDT Office Visit [facility] [place] [address] [facility], [address] [place] [address] Karly Gracia MD [address] [place] [address] 06/07/2025 1:00 PM EDT Office Visit [facility] [address] [place] [address] Tom Iraheta MD [address] [place] [address] documented as of this encounter [...] as of this encounter Care Teams Commercial Technician Relationship Specialty Start Date End Date Daniel Barba MD [address] [place] [address] PCP - General 01/02/21 12/30/24 Vignesh Pickens MD [address] [place] [address] PCP - General 12/31/24 Cayla Erazo APRN, [place] [id number] [place] [address] Nurse Practitioner Urology 12/20/24 documented as of this encounter
--- OUTSIDE RECORDS SUMMARY | 2025-04-04 10:44 | XMS_ITS | Encounter Summary ---
Author Organization [facility] Address [address] [place] [address] Care Team Providers Care Stock Control Supervisor Name Role Phone Cayla Erazo APRN, DNP Unavailable Vignesh Pickens MD Primary Care Provider [phone] Encounter Details Date Type Department Care Team [...] first t rodríguez in the morning (EYE-ELECTRICAL ENGINEERING DIRECTOR) to steady your nerves or to [...] Description 04/08/2025 9:20 AM EDT Office Visit [place] [facility] [address] [place] [address] Cayla Erazo APRN, DNP [address] [place] [address] 05/16/2025 8:00 AM EDT Office Visit [facility] [place] [address] [facility], [address] [place] [address] Karly Gracia MD [address] [place] [address] 06/07/2025 1:00 PM EDT Office Visit [facility] [address] [facility] [address] [place] [address] Tom Iraheta MD [address] [place] [address] documented as of this encounter [...] as of this encounter Care Teams Stock Control Supervisor Relationship Specialty Start Date End Date Vignesh Pickens MD [address] [place] [address] PCP - General 12/31/24 Cayla Erazo APRN, DNP [address] [place] [address] Nurse Practitioner Urology 12/20/24 documented as of this encounter
--- OUTSIDE RECORDS SUMMARY | 2025-04-04 10:44 | XMS_ITS | Encounter Summary ---
Author Organization [facility] Address [address] [place] [address] Care Team Providers Care Egg Grader Name Role Phone Cayla Erazo APRN, DNP Unavailable [phone] Vignesh Pickens MD Primary Care Provider [phone] Encounter Details Date Type Department Care Team (Late st Contact Info) Description 02/22/2025 Orders Only External Location [address] [place] [address] Jordan Carl MD [address] [place] [address] Social History Tobacco Use Types [...] drink first t rodríguez in the morning (EYE-EXTENSION WORKER) to steady your nerves or to [...] Description 04/08/2025 9:20 AM EDT Office Visit [place] [facility] [address] [place] [address] Cayla Erazo, MAID CLEANING COOKING, DNP [address] [facility] [address] [place] [address] 05/16/2025 8:00 AM EDT Office Visit [facility] [place] [address] [facility], [address] [place] [address] Karly Gracia MD [address] [place] [address] 06/07/2025 1:00 PM EDT Office Visit [facility] [address] [place] [address] Tom Iraheta MD [address] [place] [address] documented as of this encounter Procedures Procedure Name Priority Date/Time Associated Diagnosis Comments XR OUTSIDE IMAGES 02/22/2025 12:54 PM EDT documented in this encounter Results * XR OUTSIDE IMAGES (02/22/2025 12:54 PM EDT) Anatomical Region Laterality Modality Radiographic Alysa ging 02/22/2025 12:5 4 PM EDT Jordan aCrl MD IMG XR PROCEDURES Final Result documented [...] documented as of this encounter Care Teams Egg Grader Relationship Specialty Start Date End Date Vignesh Pickens MD [address] [place] [address] PCP - General 12/31/24 Cayla Erazo APRN, DNP [address] [place] [address] Nurse Practitioner Urology 12/20/24 documented as of this encounter
--- OUTSIDE RECORDS SUMMARY | 2025-04-04 10:44 | XMS_ITS | Encounter Summary ---
Author Organization [facility] Address [address] [place] [address] Care Team Providers Care Forestry Adviser Name Role Phone Cayla Erazo APRN, DNP Unavailable [phone] Vignesh Pickens MD Primary Care Provider [phone] Encounter Details Date Type Department Care Team (Late st Contact Info) Description 02/22/2025 Orders Only External Location [address] [place] [address] Jordan Carl MD [address] [place] [address] Social History Tobacco Use Types [...] drink first t rodríguez in the morning (EYE-WORKING MANAGER) to steady your nerves or to [...] Description 04/08/2025 9:20 AM EDT Office Visit [place] [facility] [address] [place] [address] Cayla Erazo, HAZARDOUS MATERIALS DRIVER, DNP [address] [facility] [address] [place] [address] 05/16/2025 8:00 AM EDT Office Visit [facility] [place] [address] [facility], [address] [place] [address] Karly Gracia MD [address] [place] [address] 06/07/2025 1:00 PM EDT Office Visit [facility] [address] [place] [address] Tom Iraheta MD [address] [place] [address] documented as of this encounter [...] documented as of this encounter Care Teams Forestry Adviser Relationship Specialty Start Date End Date Vignesh Pickens MD [address] [place] [address] PCP - General 12/31/24 Cayla Erazo APRN, DNP [address] [place] [address] Nurse Practitioner Urology 12/20/24 documented as of this encounter
--- OUTSIDE RECORDS SUMMARY | 2025-04-04 10:45 | XMS_ITS | Encounter Summary ---
Author Organization [facility] Address [address] [place] [address] Care Team Providers Care Control Panel Operator Crude Unit Name Role Phone Cayla Erazo APRN, DNP Unavailable [phone] Vignesh Pickens MD Primary Care Provider [phone] Encounter Details Date Type Department Care Team (Late st Contact Info) Description 03/01/2025 Telephone [facility] projection camera operator Clinic [address] [address] Dental, Surgeon, [address] [place] [address] Social History Tobacco Use Types Packs/Day Years [...] drink first t rodríguez in the morning (EYE-COMPUTER SUPPORT SPECIALIST) to steady your nerves or to [...] Description 04/08/2025 9:20 AM EDT Office Visit [place] [facility] [address] [place] [address] Cayla Erazo, SECOND HAND, DNP [address] [place] [address] 05/16/2025 8:00 AM EDT Office Visit [facility] [place] [address] [facility], [address] [place] [address] Karly Gracia MD [address] [place] [address] 06/07/2025 1:00 PM EDT Office Visit [facility] [address] [place] [address] Tom Iraheta MD [address] [place] [address] documented as of this encounter [...] documented as of this encounter Care Teams Control Panel Operator Crude Unit Relationship Specialty Start Date End Date Vignesh Pickens MD [address] [place] [address] PCP - General 12/31/24 Cayla Erazo APRN, [place] [address] [place] [address] Nurse Practitioner Urology 12/20/24 documented as of this encounter
[2025-04-04 10:54] LABS: Hematocrit 27.9 % (37.0-47.0); Hemoglobin 8.6 g/dL (12.2-16.2); Immature Granulocytes % 0.2 %; Mean Corpuscular HGB Conc 30.8 g/dL (31.8-35.4); Mean Corpuscular Hemoglobin 25.9 pg (27.0-31.2); Mean Corpuscular Volume 84.0 fl (81-99); Nucleated Red Blood Cells % 0 %; Platelet Count 255 K/mm3 (142-424); Red Blood Count 3.32 M/mm3 (4.20-5.40); Red Cell Distribution Width-SD 49.1 fL; White Blood Count 5.7 K/mm3 (4.8-10.8)
== END ==
LOC: LAB.DROPOF 10:36
PROVIDERS: Visit Provider Family Medicine
CPT/HCPCS: 85025

== ENCOUNTER 2025-04-05 06:55 | Outpatient (CLI) | payer MEDICARE, MEDICAID, SELFPAY ==
--- OUTSIDE RECORDS SUMMARY | 2017-02-21 10:50 | XMS_ITS | Continuity of Care Document ---
Author Organization [address] [place] [address] Address [address] [facility] [address] [place] [address] Phone Care Team Providers Care Sailing Instructor Name Role Phone SkAndrei ivey DPM Unavailable Unavailable Procedures Procedure Date DEBRIDEMENT OF NAIL(S) BY ANY METHOD(S); OR MORE DEBRIDEMENT OF NAIL(S) BY ANY METHOD(S); OR MORE DEBRIDEMENT OF NAIL(S) BY ANY METHOD(S); 6 OR MORE Advance Directives Directive Yes / No Effective Date File Name No Information Encounters Encounter Description Practice Location Reason(s) For Visit Diagnoses Date Provider Providers Copied on Encounter [facility], [address] [place] [address], [id number], tel:[phone] [facility] Tinea unguiumType 1 diabetes mellitus with hyperglycemia Pain in right toe(s)Pain in left toe(s) 7 Gomez Forbes. [address] [facility], [address] [place] [address], [id number], [place]. tel:[phone] [facility], [address] [facility] [address], [place], [place], [id number], tel:[phone] [facility] Nail Pain (chief complaint) Tinea unguiumPain in right toe(s)Pain in left toe(s) 7 Gomez Forbes. [address] [facility], [facility] 300, [place], [place], [id number], [place]. tel:[phone] [place] [address], [address] [facility], [place], [place], [id number], tel:[phone] [facility] Nail Pain (chief complaint) Tinea unguiumPain in right toe(s)Pain in left toe(s)Type 1 diabetes mellitus with hyperglycemia 7 Gomez Andrei. [address] [facility], [address], [place], [place], [id number], . tel:[phone] Family History Family Member Type Diagnosis Age At Onset No Information Payers Payer name Insurance type Covered green party ID Authoriza tion(s) Medicare [facility] [id number] Medicaid [facility] [id number] Social History Type Description Quantity Date Captured [...]
--- OUTSIDE RECORDS SUMMARY | 2025-02-22 18:13 | XMS_ITS | Encounter Summary ---
Author Organization [facility] Address [address] [id number] Care Team Providers Care Aerobics Instructor Name Role Phone Cayla Erazo APRN, DNP Unavailable [phone] Vignesh Pickens MD Primary Care Provider [phone] Reason for Visit * Reason Comments Altered Mental Status * Auth/Cert (Routine) Specialty Diagnoses / Procedures Referred By Contac t Referred To Contact Diagnoses Sepsis (CMS/HCC) UTI, CKD, Hyponatremia, COPD exacerbation Bobby Parra MD [address] [place] [address] Phone: tel: fax: PAV A Inpatient [address] [place] [address] Referral ID Status Reason Start Date Expiration Date Visits Re quested Visits Authorized [id number] 1 1 Encounter Details Date Type Department Care Team (Latest Contact Info) Description 02/22/2025 6:13 PM EDT - 03/02/2025 11:04 AM EDT Hospital Encounter PAV A Inpatient [address] [place] [id number] Luda Morton MD [address] [place] [address] Bobby Parra MD [address] [place] [address] Luda Ralph MD [address] [place] [address] Ludy Hill MD [address] [facility] [address] [place] [address] Madonna Singleton MD [address] [place] [address] Acute respiratory failure with hypoxia [...] organism (CMS/HCC); Chronic diastolic (congestive) heart failure ([facility]/HCC); Acquired absence of left lower extremity [...] any time in the past 12 m [facility], were you homeless or [...] drink first t rodríguez in the morning (EYE-RESEARCH SOFTWARE ENGINEER) to steady your nerves or to [...] Care Needs: 3-Usp Facility Current Outpatient/Agency/Support Group: nursing home facility Transportation Anticipated: ([facility]) other (see comments) Outpatient/Agency/Support Group Needs: nursing home facility Transportation Concerns: none Concerns to be Addressed: discharge planning Readmission Within the Last 30 Days: other (see comments) Patient/Family Anticipated Services at Transition: nursing home rehabilitation services Patient/Family Anticipates Transition to: long-term [...] Care Transition Intervention: Promote Activity and Functional Wasatch Flowsheets Taken 03/02/2025 08 by Gayle Light [...] EDT Patient discharged at approximately 1040 via critical access hospital wheelchair transport. Report called to JHONNY Hawkins at [facility] in [place]. All appropriate paperwork and personal belongings sent withpatient. * Lawanda [facility] - Gayle Light RN - 03/02/2025 9:03 AM EDT Images from the original note were not included. [id number] Sepsis Sepsis is a very serious condition. [...] (ICU). Last Reviewed Date: 2023 00:00:00 ?? [id number] [facility]. All rights reserved. This information is not intended as a substitute for professional medical care. Always follow your healthcare professional's instructions. * Lawanda [facility] - Gayle Light RN - 03/02/2025 9:03 AM EDT Images from the original note were not included. [id number] Discharge Instructions for Acute Kidney Injury You [...] tiredness Last Reviewed Date: 2022 00:00:00 ?? [id number] [facility]. All rights reserved. This information is not [...] Pickens MD [address] / [place] [address] Referring provider name and address: Jordan Carl MD [address] [place] [address] [place] [address] Chief Concern, Brief History of Present Illness, [...] negative infectious workup. She was extubated to MD w/o complications on 02/24/25. Currently saturating well [...] 120 at OSH, 125 on arrival to [facility] - Serum osm wnl, urine osm [...] Your Medications These medications were sent to [facility] - Jeanette RENETTA Reid - [facility] [place] [id number] fentaNYL 12 MCG/HR naloxone 4 mg/0.1 mL [...] Resolved Hospital Problems Hospital * (Principal) Sepsis ([facility]) Post Discharge Instructions Take [facility] as precribed Outpatient Follow-Up Future Appointments Date Time Provider Department Center 03/07/2025 10:00 AM Doug Chapman MD [facility] 03/27/2025 10:30 AM [facility] 3 [facility] 03/27/2025 11:50 AM [facility] SWITCH FOREMAN [facility]GS[facility] None 03/27/2025 1:00 PM Cayla Erazo APRN, [facility] 05/16/2025 8:00 AM Karly Gracia MD [facility] 06/07/2025 1:00 PM Tom Iraheta MD [...] Note Eileen May 64 y.o. female CSN: [id number] Admission: 02/22/2025 6:13 PM Primary Problem: Sepsis [...] Chair transport scheduled today at 9am To: [facility] Report: [phone] Discharge Summary fax: [phone] Escribe new meds/controls to: [facility] will remain available through discharge if needs arise. Daniela Thomas BUSH HOG OPERATOR, ASSET ADMINISTRATOR [employer] * Gayle De León RN - 03/02/2025 8:44 AM EDT Images from the original note were not included. [id number] Acute Kidney Injury: Care Instructions Overview Acute [...] this instruction, always ask your healthcare professional. [employer] disclaims any warranty or liability for your use of this information. ?? [id number] [employer], [employer]. * Lawanda Katerine - Gayle Light, RN - 03/02/2025 8:44 AM EDT Images from the original note were not included. [id number] Urinary Tract Infections in Women Urinary tract [...] started. Last Reviewed Date: 2023 00:00:00 ?? [id number] [facility]. All rights reserved. This information is not [...] Care Needs: 3-Usp Facility Current Outpatient/Agency/Support Group: nursing home facility Transportation Anticipated: ([facility]) other (see comments) Outpatient/Agency/Support Group Needs: nursing home facility Transportation Concerns: none Concerns to be Addressed: discharge planning Readmission Within the Last 30 Days: other (see comments) Patient/Family Anticipated Services at Transition: nursing home rehabilitation services Patient/Family Anticipates Transition to: long-term [...] Care Needs: 3-Usp Facility Current Outpatient/Agency/Support Group: nursing home facility Transportation Anticipated: ([facility]) other (see comments) Outpatient/Agency/Support Group Needs: nursing home facility Transportation Concerns: none Concerns to be Addressed: discharge planning Readmission Within the Last 30 Days: other (see comments) Patient/Family Anticipated Services at Transition: nursing home rehabilitation services Patient/Family Anticipates Transition to: long-term [...] lightweight clothing Taken 02/23/2025 1254 by Temi Moa RN Lung Protection Measures: fluid excess minimized [...] Ongoing, Progressing Intervention: Promote Activity and Functional [place] Flowsheets Taken 03/01/2025 0800 by Gayle Light [...] bed utilized Taken 02/28/2025 0800 by Gayle Lihgt RN Skin Protection: incontinence pads utilized Intervention: [...] negative infectious workup. She was extubated to MD w/o complications on 02/24/25. Currently saturating well [...] resumed home meds continue Mirabegron HFrEF 2/2 [facility] - 11/2024 LVEF 35-40% - Current [...] 120 at OSH, 125 on arrival to [facility] - Serum osm wnl, urine osm [...] meds today F: soft and bite sized, DIALYSIS EQUIPMENT TECHNICIAN eval Code Status: Assume Full Medically Ready for Discharge: * Progress Notes - Anthony Vaughn - 03/01/2025 9:27 AM EDT Case Management Discharge Note Eileen May 64 y.o. female CSN: [id number] Admission: 02/22/2025 6:13 PM Primary Problem: Sepsis (CMS/HCC) Primary Explosive Ordnance Handler: Primary Caregiver: Private caregiver Assistance Available at Discharge: Current Outpatient/Agency/Support Group: nursing home facility Availability of Care Givers (#Hours): 24 hours Family/Explosive Ordnance Handler(s) Willingness Assessed to care for patient at home: Yes Family/Explosive Ordnance Handler(s) Readiness Assessed to care for patient at home: Yes Housing Circumstances-Z Codes: Housing Circumstances (select all that apply): None Applicable Discharge Facility/Level of Care Needs: Discharge Facility/Level of Care Needs: 3-Usp Facility Patient/Family Anticipated Services at Transition: Patient/Family Anticipated Services at Transition: nursing home, rehabilitation services DME/Equipment Needed after Discharge: Equipment [...] Notice Recieved By: Pt at bedside Follow-up: [facility] [address] [place], [place] [id number] Follow up Vignesh Pickens MD [address] [id number] Follow up Discharge Transportation: Transportation Anticipated: other (see comments) ([facility]) Transportation Home at Discharge: Other(Comment) ([facility]) Has discharge transport been arranged?: Yes What day is the transport expected?: 03/01/25 What time is the transport expected?: 0900 Follow Up Transport: Transportation Needed to Follow up Appoinments: Other(Comment) ([facility]) Additional Comments: Plan of care reviewed with Pt's care team; Pt is medically ready for discharge. Pt is a resident [facility] in [place]. [facility]% fpg. Weekend CM to fax Pt's discharge summary to [phone], and bedside RN to call report to [phone]. Facility uses [facility] in [place]. SW met with Pt at bedside, who [...] negative infectious workup. She was extubated to MD w/o complications on 02/24/25. Currently saturating well [...] PAL MURF, Bcx NGTD S/p extubation 02/24, MD for SPO2 92%+ PLAN: Supportive care for [...] resumed home meds continue Mirabegron HFrEF 2/2 [facility] - 11/2024 LVEF 35-40% - Current [...] 120 at OSH, 125 on arrival to [facility] - Serum osm wnl, urine osm [...] meds today F: soft and bite sized, DIALYSIS EQUIPMENT TECHNICIAN eval Code Status: Assume Full Medically Ready for Discharge: * Progress Notes - Anthony Vaughn - 02/28/2025 11:11 AM EDT Case Management Adult Progress Note Eileen May 64 y.o. female CSN: [id number] Admission: 02/22/2025 6:13 PM Primary Problem: Sepsis (CMS/HCC) Anticipated Discharge Date: TBD Has Discharge Plans Changed? No Additional Comments Plan of care reviewed with Pt's care team; Pt is not medically ready for discharge. Dental extraction planned for today. Anticipate discharge readiness tomorrow. Pt is a resident at [facility]. SW sent updated notes to Pt's [...] comments) Current Outpatient/Agency/Support Group: inpatient rehabilitation facility OT,PT,DIALYSIS EQUIPMENT TECHNICIAN Anticipated Changes Related to Illness: inability to care for self Transportation Anticipated: medical transport Outpatient/Agency/Support Group Needs: inpatient rehabilitation facility Transportation Concerns: none Current Discharge Risk: physical impairment Concerns to be Addressed: basic needs discharge planning Readmission Within the Last 30 Days: previous discharge plan unsuccessful Patient/Family Anticipated Services at Transition: window caser durable medical equipment rehabilitation services Patient/Family [...] comments) Current Outpatient/Agency/Support Group: inpatient rehabilitation facility OT,PT,DIALYSIS EQUIPMENT TECHNICIAN Anticipated Changes Related to Illness: inability to care for self Transportation Anticipated: medical transport Outpatient/Agency/Support Group Needs: inpatient rehabilitation facility Transportation Concerns: none Current Discharge Risk: physical impairment Concerns to be Addressed: basic needs discharge planning Readmission Within the Last 30 Days: previous discharge plan unsuccessful Patient/Family Anticipated Services at Transition: window caser durable medical equipment rehabilitation services Patient/Family Anticipates Transition to: inpatient rehabilitation facility Taken 02/25/2025 1510 by aSrah Rand Equipment Currently Used at Home: cane, [...] Ongoing, Progressing Intervention: Promote Activity and Functional Wasatch Flowsheets Taken 02/28/2025 0816 by Gayle Light [...] negative infectious workup. She was extubated to MD w/o complications on 02/24/25. Mentating well back [...] negative infectious workup. She was extubated to MD w/o complications on 02/24/25. Events of past [...] in the posterior aspect of tooth #31. [place] wear in tooth number 8, 9 and [...] negative infectious workup. She was extubated to MD w/o complications on 02/24/25. #Acute hypoxic respiratory [...] MURF, Bcx NGTD - S/p extubation 02/24, MD for SPO2 92%+ PLAN: - Supportive care [...] home meds - continue Mirabegron #HFrEF 2/2 [facility] - 11/2024 LVEF 35-40% - Current [...] 120 at OSH, 125 on arrival to [facility] - Serum osm wnl, urine osm [...] meds today F: soft and bite sized, DIALYSIS EQUIPMENT TECHNICIAN eval A: oxy, acetaminophen, fentanyl patch (home [...] Chuy Graham DO Internal Medicine PGY-2 Pager [phone]; Epic Chat preferred Procedures [1] [2] PRN [...] negative infectious workup. She was extubated to MD w/o complications on 02/24/25. During her hospital [...] is being transferred from ICU team to [facility] Team 14 Major Active Problems: Currently [...] urology for parekh management, now pt w/o paerkh, using external cath - resumed home meds - continue Mirabegron #HFrEF / [facility] - 11/2024 LVEF 35-40% - Current [...] meds today F: soft and bite sized, DIALYSIS EQUIPMENT TECHNICIAN eval A: oxy, acetaminophen, fentanyl patch (home [...] 120 at OSH, 125 on arrival to [facility] - Serum osm wnl, urine osm [...] Lunch Supplement frequency: Dinner Lunch supplement: [place] Quantity for Lunch of [place] Packet One Dinner supplement: Tony Fruit Punch [...] at baseline. The patient primary contact is: aVl Howell (Sister) Patient's HCPOA: is not same as above, pt makes own medical decisions I have spoken with and given verbal consent checkout to the primary receiving provider: Dr Mani MD - Chuy Graham DO Internal Medicine PGY-2 Pager [phone]; Epic Chat preferred * Care Plan - [...] Injury Flowsheets Taken 02/26/2025 1600 by Bassem Jya, RN Body Position: right turned Taken 02/26/2025 [...] Ongoing, Progressing Intervention: Promote Activity and Functional Wasatch Flowsheets (Taken 02/26/2025 1750 by Bassem Jay, [...] Ongoing, Progressing Intervention: Promote Activity and Functional Wasatch Flowsheets (Taken 02/26/2025 1750) Activity Assistance Provided: assistance refused education provided Self-Care Promotion: independence encouraged * Progress Notes - Eileen Ortega - 02/26/2025 11:16 AM EDT Physical Therapy Evaluation Patient Name: Eileen May Today's Date: 02/26/2025 PT Discharge Recommendations: Subacute rehab Equipment Recommended: Defer to facility History Eileen May is 64 y.o. female admitted 02/22/2025 for work-up of Sepsis ([facility]). Problem List Active Hospital Problems Diagnosis Date Noted Sepsis ([facility]) 02/22/2025 Procedures Past 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 Patient has a past medical history of Anxiety, Breast cancer, Cerebral infarction, unspecified ([facility]), COPD (chronic obstructive pulmonary disease) ([facility]), Depression, Fibromyalgia, History of falling, [...] relaxing. Participants in Care Family/Caregiver Present: No Enterprise Integration Architect: Not Applicable Presentation Oxygen Therapy: None (Room [...] From: Caregiver Level of Mobility: Wheelchair/Scooter Mobility Wasatch: Independent wheelchair propulsion History of Falls: No ADL Performance: Needs assistance Bathing: Needs assist Upper Body Dressing: Independent Lower Body Dressing: Needs assist Grooming: Independent Toileting: Needs assist Eating: Independent Home Management Skills: Unable to perform Patient/Family Goals Return home at [facility]. Objective Pain Pt reports having some [...] change. Bed Mobility Exam: Rolling/Turning Level of Wasatch: Moderate assist (50% patient effort) (bilaterally) Physical/Nonphysical Assist: Verbal Cues, Minimal cues, 1 person + 1 person to manage equipment Assistive Device: Other (drawsheet) Bed Mobility Exam: Scooting/Bridging Level of Wasatch: Maximum assist (25% patient's effort) (to head [...] space Standardized Assessments Standardized Assessments Standardized Assessments: [facility] 6-Clicks Mobility Assessment [facility] 6-Clicks Mobility Assessment Difficulty patient has turning [...] at 11:45 AM. * Progress Notes - Maknezie Groves - 02/26/2025 10:30 AM EDT Occupational Therapy Evaluation Patient Name: Eileen May Today's Date: 02/26/2025 OT Discharge Recommendations: Subacute rehab Equipment Recommended: Defer to facility History Eileen May is 64 y.o. female admitted 02/22/2025 for work-up of Sepsis ([facility]). Hospital Course 1. [place] coma scale total score 9-12, at arrival to emergency department 2. Acute cystitis without hematuria 3. Acute respiratory failure with hypercapnia 4. COPD exacerbation ([facility]) Procedures Past 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 Patient has a past medical history of Anxiety, Breast cancer, Cerebral infarction, unspecified ([facility]), COPD (chronic obstructive pulmonary disease) ([facility]), Depression, Fibromyalgia, History of falling, [...] date Participants in Care Family/Caregiver Present: No Enterprise Integration Architect: Not Applicable Presentation Oxygen Therapy: None (Room [...] From: Caregiver Level of Mobility: Wheelchair/Scooter Mobility Wasatch: Independent wheelchair propulsion History of Falls: No [...] of treatment space BED MOBILITY Level of Wasatch Physical/Non- physical Assist Adaptive Equipment Utilized Rolling/ [...] to rot this date. TRANSFERS Level of Wasatch Physical/Non- physical Assist Adaptive Equipment Utilized Sit to Stand Stand to sit Bed to Chair Toilet Transfer Shower Transfer Interventions Patient politely deferring transfer tasks this date; educated on use of amputee slingfor increased safety as patient expresses nervousness with transfer tasks. FUNCTIONAL MOBILITY Level of Wasatch Distance Adaptive Equipment Utilized Ambulation Comments Patient does not ambulate at baseline* ADL / Self-Care Tasks Level of Wasatch Adaptive Equipment Utilized Interventions Feeding Setup, Standby [...] increased patient rest/education throughout session. Standardized Assessments [facility] 6-Click Daily Activities Help from Other: Don/Doff Regular Lower Body Clothings: Total Help From Other: Bathing: A lot Help From Other: Toileting: Total Help From Other: Don/Doff Upper Body Clothings: Little Help From Other: Grooming: Little Help From Other: Eating Meals: None [facility] 6 Click - Daily Activities Score: 14 [...] negative infectious workup. She was extubated to MD w/o complications on 02/24/25. Events of past [...] negative infectious workup. She was extubated to MD w/o complications on 02/24/25. #Acute hypoxic respiratory [...] MURF, Bcx NGTD - S/p extubation 02/24, MD for SPO2 92%+ PLAN: - Supportive care [...] 120 at OSH, 125 on arrival to [facility] - Serum osm wnl, urine osm [...] meds today F: soft and bite sized, DIALYSIS EQUIPMENT TECHNICIAN eval A: oxy, acetaminophen, fentanyl patch (home [...] Chuy Graham, DO Internal Medicine PGY-2 Pager [phone]; Epic Chat preferred Procedures [1] [2] PRN [...] -Schedule patient to follow-up on 5th floor [facility] for extraction of #15 underlocal anesthesia. -we will arrange transport to clinic from hospital bed. - Diet: Regular; NPO at midnight prior to surgery -For extraction of one tooth it is not warranted to stop current anticoagulation therapy. -Follow current recommendations of Primary team. [facility] [employer] Department of Oral & Maxillofacial Surgery [address] [facility] Fifth Floor, [address] [place] [address] Dispo: Continue Current Level of Care Bert [...] BREAST SURGERY N/A Breast Surgery Reconstruction from [facility] BREAST SURGERY N/A Breast Surgery from [facility] CHOLECYSTECTOMY N/A Cholecystotomy from [facility] KIDNEY SURGERY N/A Kidney Surgery from [facility] KNEE SURGERY N/A Knee Surgery from [facility] MASTECTOMY N/A Breast Surgery Mastectomy from [facility] SHOULDER SURGERY Right Shoulder Surgery Right from [facility] [3] No current facility-administered medications on file [...] is unaware of what reaction. Pedi-Pre Tape [place] [Wound Dressing Adhesive] Rash Wellbutrin [Bupropion] Rash Cosigned by Jin Rodriguez DDS at 02/26/2025 10:04 AM EDT Associated attestation - Jin Rodriguez DDS - 02/26/2025 10:04 AM EDT I reviewed with Dr. Bowling and agree with the plan * Progress Notes - Sarah Rand - 02/25/2025 3:11 PM EDT Case Management Adult Initial Progress Note Eileen Chayito May 64 y.o. female CSN: [id number] Admission: 02/22/2025 6:13 PM Primary Problem: Sepsis (CMS/HCC) Angle Shear Operator reviewed chart and spoke with patient to complete this Initial Case Management Assessment. PCP: Vignesh Pickens MD Emergency Contact: Extended Emergency Contact Information Primary Emergency Contact: Val Howell Mobile Relation: Sister Enterprise Integration Architect needed? No Insurance: Primary Visit Coverage Payer Plan Sponsor Code Group Number Group Name MEDICARE MEDICARE A & B Primary Visit Coverage Subscriber Subscriber ID Subscriber Name Subscriber [facility] Subscriber Address [id number] EILEEN MAY [id number] [address] Secondary Visit Coverage Payer Plan Sponsor Code Group Number Group Name MEDICAID-[facility] MEDICAID TRADITIONAL Secondary Visit Coverage Subscriber Subscriber ID Subscriber Name Subscriber N Subscriber Address [id number] EILEEN MAY [id number] [place] [address] Patient information: Primary Caregiver: Private caregiver Support System: Immediate family Daily Living Activities: Functional Status: Moderate assistance Living Arrangements: Mcfp Type of Residence: assisted facility [facility] [place] [address] Current DME: Equipment Currently Used at Home: [...] living facility Discharge Transport: Follow Up Transport: [facility] provides follow up transportation. Patient will need assistance with transportation when medically stable. Home Health / Home Infusion / Outpatient Dialysis Services: None reported. Living Will/Advance Directive/Power of First Aid Officer /Guardian: None reported. Sister/Val is NOK. Additional [...] Note Eileen May 64 y.o. female CSN: [id number] Room/Bed 121/121A Nutrition evaluation type: follow-up Reason [...] 36.76 Weight Evaluation: Obese-Class 2 (BMI 35-39.9) [place] Body Weight (kg): 48.55 (adjusted for left AKA) Percent [place] Body Weight: 198 Adjusted Body Weight (kg): [...] oz) Estimated Needs: Kcal/ K-30 Kcal Provided: 7876-7613 Kcal Needs Based On: Adjusted weight (60.5 kg) Gm Protein/ Kg : 1.2-1.5 Protein Provided: 73-91 Protein Needs Based On: Adjusted weight (60.5 kg) Fluid Provided: 1 ml/kcal or per MD team Metabolic Cart Study Results: Current Nutrition Intake: Diet Supplements: None Diet Order: Adult Diet Diet Texture: Full Liquid Adult Carbohydrate Restriction: Consistent CHO 2 (5548-9257 Antwon, 80 g/meal) Percent Meals Eaten (%): [...] Recommendations: - Advance diet as appropriate per DIALYSIS EQUIPMENT TECHNICIAN - CHO 2 diet - Add Boost [...] BREAST SURGERY N/A Breast Surgery Reconstruction from [employer] BREAST SURGERY N/A Breast Surgery from [employer] CHOLECYSTECTOMY N/A Cholecystotomy from [employer] KIDNEY SURGERY N/A Kidney Surgery from [employer] KNEE SURGERY N/A Knee Surgery from [employer] MASTECTOMY N/A Breast Surgery Mastectomy from [employer] SHOULDER SURGERY Right Shoulder Surgery Right from [employer] [3] atorvastatin, 40 mg, Oral, Nightly baclofen, [...] negative infectious workup. She was extubated to MD w/o complications on 02/24/25. Events of past 24 hours: - no acute events overnight - was extubated 02/24/25 to MD, doing well, currently above goal on 2L [...] negative infectious workup. She was extubated to MD w/o complications on 02/24/25. #Acute hypoxic respiratory [...] Bcx NGTD PLAN: - S/p extubation 02/24, MD for SPO2 92%+ - Supportive care for [...] meds today - on Mirabegron #HFrEF 2/2 [facility] - 11/2024 LVEF 35-40% - Current [...] 120 at OSH, 125 on arrival to [facility] - Serum osm wnl, urine osm [...] meds today F: full liquid carb 2, DIALYSIS EQUIPMENT TECHNICIAN eval A: oxy, acetaminophen, prn dilaudid IV, [...] Chuy Graham DO Internal Medicine PGY-2 Pager [phone]; Epic Chat preferred Procedures [1] [2] PRN [...] NUTRITION SERVICES Adult Nutrition Evaluation Note Eileen Mya 64 y.o. female CSN: [id number] Room/Bed 121/121A Nutrition evaluation type: assessment Reason [...] 36.39 Weight Evaluation: Obese-Class 2 (BMI 35-39.9) [place] Body Weight (kg): 48.55 (adjusted for left AKA) Percent [place] Body Weight: 198 Adjusted Body Weight (kg): [...] oz) Estimated Needs: Kcal/ K-30 Kcal Provided: 0018-3306 Kcal Needs Based On: Adjusted weight (60.5 [...] Interventions and Recommendations: PO diet advancement per DIALYSIS EQUIPMENT TECHNICIAN/MD team. TF recs if warranted: Diabetisource AC [...] BREAST SURGERY N/A Breast Surgery Reconstruction from [employer] BREAST SURGERY N/A Breast Surgery from [employer] CHOLECYSTECTOMY N/A Cholecystotomy from [employer] KIDNEY SURGERY N/A Kidney Surgery from [employer] KNEE SURGERY N/A Knee Surgery from [employer] MASTECTOMY N/A Breast Surgery Mastectomy from [employer] SHOULDER SURGERY Right Shoulder Surgery Right from [employer] [3] atorvastatin, 40 mg, Nasogastric, Nightly clopidogrel, [...] limited positioning supports utilized pressure points protected [id number]-[id number] areas padded tubing/devices free from skin contact [...] continued concern or difficult irrigating, contact Urology burial needs salesperson. #hypovolemic Hyponatremia, resolved - baseline Na 130-135 - Na 120 at OSH, 125 on arrival to [facility] - Serum osm wnl, urine osm [...] Ralph. Boyd Romano. Internal Medicine PGY-2 Pager [phone] Critical Care Performed by: Luda Ralph MD [...] MD Consult ordered by: Luda Ralph MD [facility] Urology Consult Note 02/23/25 Service Requesting Consultation: MICU CC: Hematuria HPI: Eileen May is a 64 y.o. female with a past medical history of CAD s/p PCI, ICM w/ LVEF 35-40%, CVA w/ residual L-sided deficits s/p ICA stents on xeralto, Left AKA, insulin dependent T2DM, HTN, HLD, prior breast cancer s/p mastectomy, COPD, bilateral hydronephrosis and neurogenic bladder who presented to [facility] ED as a transfer from OSH [...] findings. Hospital Problem List: Principal Problem: Sepsis ([facility]) Assessment: Eileen May is a [...] need to be upsized to a 20 Guyanese catheter to allow for easier drainage. We [...] continued concern or difficult irrigating, contact Urology burial needs salesperson. Jake Sheets MD Urology PGY-2 [1] Past [...] CKD (CMS/HCC); Chronic kidney disease, stage 3a ([facility]/HCC); Sepsis with encephalopathy without septic shock, due to unspecified organism ([facility]) Images from the original note [...] AMS with GCS 6-7 on arrival to [facility] therefore intubated for airway protection - [...] acute urologic intervention - Statloc to secure parkeh catheter - Ok to restart AC per [...] continued concern or difficult irrigating, contact Urology burial needs salesperson. #Hyponatremia - baseline Na 130-135 - Na 120 at OSH, 125 on arrival to [facility] PLAN: - will continue to monitor [...] Chuy Graham, DO Internal Medicine PGY-2 Pager [phone]; Epic Chat preferred Critical Care Performed by: [...] Least Restrictive Safety Strategies Flowsheets (Taken 02/22/20252235) Real Estate Account Executive Protection: torso covered tubing secured Diversional Activities: [...] and AMS. Patient presented to OSH from [facility] due to concern for hyponatremia, encephalopathy [...] exacerbation, given duonebs and azithromycin. Transferred to [facility] for higher level of care. On arrival to [facility] ED, patient GCS 6-7, VBG7.28/60/41, patient [...] Per sliding scale @ 1130 and 1630 Kait Womack MD insulin glargine (Basaglar KwikPen) 100 [...] every 6 hours as needed. 01/17/20 Kati Woamck MD oxyCODONE-acetaminophen (Percocet) 5-325 MG tablet Take [...] AMS with GCS 6-7 on arrival to [facility] therefore intubated for airway protection PLAN [...] 120 at OSH, 125 on arrival to [facility] - will continue to monitor with q4h Na HFrEF 2/2 [facility] - 11/2024 LVEF 35-40% - Current [...] Rachel Shipman MD PGY-3, Internal Medicine Pager: [phone] Procedures [1] Family History Problem Relation Name [...] bag 0.25 mg Intravenous q10 min PRN [place], Leon B, DO 0.25 mg at 02/22/251953 Or HYDROmorphone (Dilaudid) bolus from bag 0.5 mg Intravenous q10 min PRN [place], Leon B, DO 0.5 mg at 02/22/251926 hydromorphone 20 mg in NS 100 mL infusion (200 mcg/mL) 0.25-2 mg/hr Intravenous Titrated [place], Leon B, DO 1.25 mL/hr at 02/22/251926 0.25 mg/hr at 02/22/251926 ipratropium-albuterol (Duo-Neb) 0.5-2.5 mg/3 mL nebulizer solution 3 mL 3 mL Nebulization Once [place], Leon B, DO mupirocin (Bactroban) 2 % [...] evaluated the patient with the resident/fellow via [facility] ICU audio- visual support as available. [...] CTHAP: no acute findings Steroids in ED [facility] ED -> transferred here. VBG completed [...] Daily Order ID Start Status Ordering Provider [id number] 02/23/25 0800 Ordered MORTONLUDA Stevens 02/24/25 0600 [...] Continuous Order ID Start Status Ordering Provider [id number] 02/22/25 1859 Ordered LUDA MORTON [id number] 02/22/25 2000 Completed LUDA MORTON [id number] 02/23/25 0800 Ordered LUDA MORTON T 02/23/251999 Scheduled MORTONLUDA 02/24/25 0800 Scheduled MORTON, LUDA Cisneros 02/24/251999 Scheduled MORTON, LUDA T 02/25/25 0800 Scheduled MORTON, LUDA T 02/25/251999 Scheduled MORTON LUDA Cisneros 02/26/25 0800 Scheduled MORTON, LUDA Cisneros 02/26/251999 Scheduled MORTON, LUDA Cisneros Ordered MORTON LUDA Cisneros 02/22/251857 End Tidal co2 Monitoring Continuous Order ID Start Status Ordering Provider [id number] 02/22/251858 Ordered MORTONLUDA Stevens [id number] 02/22/251999 Completed MORTON LUDA Cisneros [id number] 02/23/25 08 Ordered MORTON LUDA Cisneros 02/23/251999 [...] mucosal integrityUntil discontinued Ordered LUDA MORTON 02/22/251857 [place] teeth every 12 hours Until discontinued Ordered [...] intracranial process but multiple chronic infarcts and [id number] small-vessel disease. Additionally CT angio of the [...] within normal ranges. Lactate also normal at [facility]. No further advanced imaging was required [...] COPD (chronic obstructive pulmonary disease) (CMS/[facility]) Depression Fibromyalgia History [...] BREAST SURGERY N/A Breast Surgery Reconstruction from [employer] BREAST SURGERY N/A Breast Surgery from [employer] CHOLECYSTECTOMY N/A Cholecystotomy from [employer] KIDNEY SURGERY N/A Kidney Surgery from [employer] KNEE SURGERY N/A Knee Surgery from [employer] MASTECTOMY N/A Breast Surgery Mastectomy from [employer] SHOULDER SURGERY Right Shoulder Surgery Right from [employer] [3] Family History Problem Relation Name Age [...] is unaware of what reaction. Pedi-Pre Tape [place] [Wound Dressing Adhesive] Rash Wellbutrin [Bupropion] Rash [...] Description 04/08/2025 9:20 AM EDT Office Visit [facility] [address] [place] [address] Cayla Erazo, METAL MOLD DRESSER, DNP [address] [place] [address] 05/16/2025 8:00 AM EDT Office Visit [facility] [place] [address], [address] [place] [address] Karly Gracia MD [address] [place] [address] 06/07/2025 1:00 PM EDT Office Visit [facility] [address] [place] [address] Tom Iraheta MD [address] [place] [address] documented as of this encounter [...] EDT EXTUBATION Routine 02/24/2025 9:49 AM EDT [facility], E/M 30-74 MINUTES Routine 02/24/2025 7:08 AM EDT Acute respiratory failure with hypoxia and hypercapnia Acute kidney injury superimposed on CKD ([facility]) Chronic kidney disease, stage 3a ([facility]) Hyponatremia Acute encephalopathy Sepsis with encephalopathy without septic shock, due to unspecified organism ([facility]) Chronic diastolic (congestive) heart failure ([facility]) POCT GLUCOSE METER UNSOLICITED RESULTS [...] AND TREAT Routine 02/23/2025 10:25 AM EDT [facility], E/M 30-74 MINUTES Routine 02/23/2025 9:10 AM EDT Acute respiratory failure with hypoxia and hypercapnia Acute kidney injury superimposed on CKD ([facility]) Chronic kidney disease, stage 3a ([facility]) Hyponatremia Acute encephalopathy Sepsis with encephalopathy without septic shock, due to unspecified organism ([facility]) SODIUM, PLASMA Timed 02/23/2025 8:34 [...] POCT glucose meter (03/02/2025 8:13 AM EDT) [facility] POCT Glucose 188(H) 74 - 99 mg/dL [...] Comment 03/02/2025 8:14 AM EDT HEALTHCARE LAB Accounts Payable Coordinator ID YvroseStefanie frausto 025 8:14 AM EDT [facility] Device ID [id number] 03/02/2025 8:14 AM EDT [facility] Specimen Type POC Capillary 03/02/2025 8:14 AM EDT [facility] Blood Capillary blood specimen / Unknown 03/02/2025 8:13 AM EDT 03/02/2025 8:14 AM EDT Madonna Mani [facility] POINT OF CARE TE ST DOCKED DEVICE UNSOLICITED RESULTS Final Result Performing Organization Address City/State/[facility] Co de Phone Number HEALTHCARE LAB [address] [place] [address] * (ABNORMAL) POCT glucose meter (03/01/2025 7:46 PM EDT) [facility] POCT Glucose 134(H) 74 - 99 [...] 03/01/2025 7:47 PM EDT [facility] Accounts Payable Coordinator ID Kamron Freire 03/01/2025 7:47 PM EDT [facility] Device ID [id number] 03/01/2025 7:47 PM EDT [facility] Specimen Type POC Capillary 03/01/2025 7:47 PM EDT [facility] Blood Capillary blood specimen / Unknown 03/01/2025 7:46 PM EDT 03/01/2025 7:47 PM EDT us Madonna Singleton MD LAB POINT OF CARE TE ST DOCKED DEVICE UNSOLICITED RESULTS Final Result Performing Organization Address City/[facility] [address] [facility]/ZIP Co de Phone Number [facility] [address] [place] [address] * (ABNORMAL) POCT glucose meter (03/01/2025 5:42 [...] 03/01/2025 5:45 PM EDT [facility] Accounts Payable Coordinator ID Norberto Smyth 03/01/20 5:45 PM EDT [facility] Device ID [id number] 03/01/2025 5:45 PM EDT [facility] Specimen Type POC Capillary 03/01/2025 5:45 PM EDT HEALTH[facility]ARE [facility] Blood Capillary blood specimen / Unknown 03/01/2025 5:42 PM EDT 03/01/2025 5:45 PM EDT us Madonna Singleton MD LAB POINT OF CARE TE ST DOCKED DEVICE UNSOLICITED RESULTS Final Result Performing Organization Address City/[facility]/ZIP Co de Phone Number [facility] [address] [place] [address] * SEND HECTOR MESSAGE (03/01/2025 4:15 PM EDT) Urine Urine specimen obtained by clean catch procedure / Unknown Non-blood Collection / Unknown 03/01/2025 4:15 PM EDT 03/01/2025 4:26 PM EDT us Madonna Mani [facility] URINE ORDERABLES Final Resul t [facility] [address] [place] [address] * (ABNORMAL) Urine Culture (03/01/2025 4:15 PM EDT) Culture 10,000 - 100,000 CFU/mL Enterobacter cloacae complex(A) CHRISTIANO 03/05/2025 12:12 PM EDT [facility] Comment: This isolate has been identified using the FDA Approved [employer] CA System Edited result: Previously reported as [...] ORDER GIO Final Result Performing Organization Address [facility] Co de Phone Number [facility] [address] [place] [address] * Urinalysis Microscopic Examination (03/01/2025 4:15 PM EDT) Urine Urine specimen obtained by clean catch procedure / Unknown Non-blood Collection / Unknown 03/01/2025 4:15 PM EDT 03/01/2025 4:26 PM EDT us Madonna Singleton MD LAB URINE ORDERABLES Final Resul t Performing Organization Address [facility] de Phone Number [facility] [address] [place] [address] * Urine Salmon Panel (03/01/2025 4:15 PM EDT) Extra Sent for Culture 03/01/2025 6:01 PM EDT [facility] Urine Urine specimen obtained by clean catch procedure / Unknown Non-blood Collection / Unknown 03/01/2025 4:15 PM EDT 03/01/2025 4:26 PM EDT us Madonna Singleton MD LAB URINE ORDERABLES Final Resul t Performing Organization Address [facility] Co de Phone Number [facility] [address] [place] [address] * (ABNORMAL) Urinalysis with reflex microscopic (Culture NOT Included) (03/01/2025 4:15 PM EDT) Color, Urine Yellow LAB URINALYSIS - AUTOMATED METHOD 03/01/2025 4:34 PM EDT [facility] Clarity, Urine Cloudy LAB URINALYSIS - AUTOMATED METHOD 03/01/2025 4:34 PM EDT [facility] Spec [place], Urine 1.008 1.005 - 1.030 LAB URINALYSIS - AUTOMATED METHOD 03/01/2025 4:34 PM EDT [facility] pH, Urine 6.5 5.0 - 8.0 LAB URINALYSIS - AUTOMATED METHOD 03/01/2025 4:34 PM EDT [facility] Protein, Urine 30(A) Negative mg/dL LAB URINALYSIS - AUTOMATED METHOD 03/01/2025 4:34 PM EDT [facility] Glucose, Urine Negative Negative mg/dL LAB URINALYSIS - AUTOMATED METHOD 03/01/2025 4:34 PM EDT [facility] Ketones, Urine Negative Negative mg/dL LAB URINALYSIS - AUTOMATED METHOD 03/01/2025 4:34 PM EDT [facility] Blood, Urine Large(A) Negative LAB URINALYSIS - AUTOMATED METHOD 03/01/2025 4:34 PM EDT [facility] Bilirubin, Urine Negative Negative LAB URINALYSIS - AUTOMATED METHOD 03/01/2025 4:34 PM EDT [facility] Urobilinogen, Urine 0.2 0.2 to 1.0 mg/dL LAB URINALYSIS - AUTOMATED METHOD 03/01/2025 4:34 PM EDT [facility] Leukocytes, Urine Large(A) Negative LAB URINALYSIS - AUTOMATED METHOD 03/01/2025 4:34 PM EDT [facility] Nitrite, Urine Negative Negative LAB URINALYSIS - AUTOMATED METHOD 03/01/2025 4:34 PM EDT [facility] RBC, Urine >50(A) 0 to 3 /HPF LAB URINALYSIS - AUTOMATED METHOD 03/01/2025 4:34 PM EDT [facility] WBC, Urine >50(A) 0 to 5 /HPF LAB URINALYSIS - AUTOMATED METHOD 03/01/2025 4:34 PM EDT [facility] Squamous Epithelial Cells 3 - 5 0 to 5 /HPF LAB URINALYSIS - AUTOMATED METHOD 03/01/2025 4:34 PM EDT [facility] Hyaline Casts 0 - 2 0 to 5 /LPF LAB URINALYSIS - AUTOMATED METHOD 03/01/2025 4:34 PM EDT [facility] Bacteria, Urine Negative Negative LAB URINALYSIS - AUTOMATED METHOD 03/01/2025 4:[address] [facility] Urine Urine specimen obtained by clean catch procedure / Unknown Non-blood Collection / Unknown 03/01/2025 4:15 PM EDT 03/01/2025 4:26 PM EDT us Madonna Singleton MD LAB URINE ORDERABLES Final Resul t [facility] [address] [place] [address] * (ABNORMAL) POCT glucose meter (03/01/2025 12:03 [...] Comment 03/01/2025 12:05 PM EDT HEALTHCARE LAB Accounts Payable Coordinator ID Rocky, Serenity 03/01/2025 12:05 PM EDT [facility]ALTH[facility]ARE LAB Device ID [id number] 03/01/2025 12:05 PM EDT [facility] Specimen Type POC Capillary 03/01/2025 12:05 PM EDT [facility] Blood Capillary blood specimen / Unknown 03/01/2025 12:03 PM EDT 03/01/2025 12:05 PM EDT us Madonna Singleton MD LAB POINT OF CARE TE ST DOCKED DEVICE UNSOLICITED RESULTS Final Result [facility] [address] [place] [address] * (ABNORMAL) POCT glucose meter (03/01/2025 7:59 [...] Comment 03/01/2025 8:01 AM EDT HEALTHCARE LAB Accounts Payable Coordinator ID Nancy Hidalgo 03/01/2025 8:01 AM EDT HEALTHCARE LAB Device ID [id number] 03/01/2025 8:01 AM EDT [facility]ALTH[facility]ARE LAB Specimen Type POC Capillary 03/01/2025 8:01 AM EDT [facility] Blood Capillary blood specimen / Unknown 03/01/2025 7:59 AM EDT 03/01/2025 8:01 AM EDT us Madonna Mani [facility] POINT OF CARE TE ST DOCKED DEVICE UNSOLICITED RESULTS Final Result Performing Organization Address City/State/[facility] Co de Phone Number HEALTHCARE LAB [address] [place] [address] * (ABNORMAL) CBC and Differential (03/01/2025 4:08 AM EDT) WBC Count 6.83 3.70 - 10.30 10*3/uL LAB HEMATOLOGY METHOD 03/01/2025 4:54 AM EDT [facility] RBC Count 3.61(L) 3.90 - 5.20 10*6/uL LAB HEMATOLOGY METHOD 03/01/2025 4:54 AM EDT [facility] HGB 9.2(L) 11.2 - 15.7 g/dL LAB HEMATOLOGY METHOD 03/01/2025 4:54 AM EDT [facility] HCT 29.9(L) 34.0 - 45.0 % LAB HEMATOLOGY METHOD 03/01/2025 4:54 AM EDT [facility] Platelet Count 294 155 - 369 10*3/uL LAB HEMATOLOGY METHOD 03/01/2025 4:54 AM EDT [facility] MCV 83 79 - 98 fL LAB HEMATOLOGY METHOD 03/01/2025 4:54 AM EDT [facility] MCH 25.5(L) 26.0 - 32.0 pg LAB HEMATOLOGY METHOD 03/01/2025 4:54 AM EDT [facility] MCHC 30.8 30.7 - 35.5 g/dL LAB HEMATOLOGY METHOD 03/01/2025 4:54 AM EDT [facility] RDW 15.1(H) 11.5 - 14.5 % LAB HEMATOLOGY METHOD 03/01/2025 4:54 AM EDT [facility] MPV 9.2 8.8 - 12.5 fL LAB HEMATOLOGY METHOD 03/01/2025 4:54 AM EDT [facility] nRBC 0.0 <=0.0 per 100 WBCs LAB HEMATOLOGY METHOD 03/01/2025 4:54 AM EDT [facility] Differential Type Automated LAB HEMATOLOGY METHOD 03/01/2025 4:54 AM EDT [facility] Neutrophils % 56 % LAB HEMATOLOGY METHOD 03/01/2025 4:54 AM EDT [facility] Lymphocytes % 25 % LAB HEMATOLOGY METHOD 03/01/2025 4:54 AM EDT [facility] Monocytes % 11 % LAB HEMATOLOGY METHOD 03/01/2025 4:54 AM EDT [facility] Eosinophils % 6 % LAB HEMATOLOGY METHOD 03/01/2025 4:54 AM EDT [facility] Basophils % 1 % LAB HEMATOLOGY METHOD 03/01/2025 4:54 AM EDT [facility] Immature Granulocytes % 1 % LAB HEMATOLOGY METHOD 03/01/2025 4:54 AM EDT [facility] Neutrophils Absolute 3.86 1.60 - 6.10 10*3/uL LAB HEMATOLOGY METHOD 03/01/2025 4:54 AM EDT [facility] Lymphocytes Absolute 1.70 1.20 - 3.90 10*3/uL LAB HEMATOLOGY METHOD 03/01/2025 4:54 AM EDT [facility] Monocytes Absolute 0.74 0.30 - 0.90 10*3/uL LAB HEMATOLOGY METHOD 03/01/2025 4:54 AM EDT [facility] Eosinophils Absolute 0.44 0.00 - 0.50 10*3/uL LAB HEMATOLOGY METHOD 03/01/2025 4:54 AM EDT [facility] Basophils Absolute 0.05 0.00 - 0.10 10*3/uL LAB HEMATOLOGY METHOD 03/01/2025 4:54 AM EDT [facility] Immature Granulocytes Absolute 0.04 0.00 - 0.06 10*3/uL LAB HEMATOLOGY METHOD 03/01/2025 4:54 AM EDT [facility] Blood Venous blood specimen / Unknown Venipuncture / Unknown 03/01/2025 4:08 AM EDT 03/01/2025 4:42 AM EDT Narrative [facility] - 03/01/2025 4:54 AM EDT Therapeutic decision making should be based on absolute values, rather than percentages. us Madonna Singleton MD LAB BLOOD ORDERABLES Final Resul t Performing Organization Address City/[facility]/ZIP Co de Phone Number [facility] [address] [place] [address] * Magnesium, Plasma (03/01/2025 4:08 AM EDT) Magnesium, Plasma 2.0 1.9 - 2.4 mg/dL 03/01/2025 5:14 AM EDT [facility] Blood Venous blood specimen / Unknown Venipuncture / Unknown 03/01/2025 4:08 AM EDT 03/01/2025 4:43 AM EDT us Madonna Singleton MD LAB BLOOD ORDERABLES Final Resul t Performing Organization Address City/[facility]/ZIP Co de Phone Number [facility] [address] [place] [address] * (ABNORMAL) Basic Metabolic Panel, Plasma (03/01/2025 4:08 AM EDT) Glucose, Plasma 205(H) 74 - 99 mg/dL 03/01/2025 5:14 AM EDT [facility] BUN, Plasma 40(H) 8 - 23 mg/dL 03/01/2025 5:14 AM EDT [facility] Creatinine, Plasma 1.84(H) 0.60 - 1.10 mg/dL 03/01/2025 5:14 AM EDT [facility] BUN/Creatinine Ratio 22 03/01/2025 5:14 AM EDT [facility] Sodium, Plasma 125(L) 136 - 145 mmol/L 03/01/2025 5:14 AM EDT [facility] Potassium, Plasma 4.5 3.6 - 4.9 mmol/L 03/01/2025 5:14 AM EDT [facility] Chloride, Plasma 91(L) 97 - 107 mmol/L 03/01/2025 5:14 AM EDT [facility] CO2, Plasma 23 22 - 29 mmol/L 03/01/2025 5:14 AM EDT [facility] Anion Gap 11 6 - 16 mmol/L 03/01/2025 5:14 AM EDT [facility] Total Calcium, Plasma 8.8(L) 8.9 - 10.2 mg/dL 03/01/2025 5:14 AM EDT [facility] eGFRcr 30.1 mL/min/1.7 3m*2 03/01/2025 5:14 AM EDT [facility] Comment:Reported eGFRcr in m L/min/1.73m2 is based the CKD-EPI 2020 equation that does not use a race coefficient. Blood Venous blood specimen / Unknown Venipuncture / Unknown 03/01/2025 4:08 AM EDT 03/01/2025 4:43 AM EDT us Madonna Singleton MD LAB BLOOD ORDERABLES Final Resul t Performing Organization Address City/[facility]/ZIP Co de Phone Number [facility] [address] [place] [address] * Phosphorus, Plasma (03/01/2025 4:08 AM EDT) Phosphorus, Plasma 4.4 2.5 - 4.5 mg/dL 03/01/2025 5:14 AM EDT [facility] Blood Venous blood specimen / Unknown Venipuncture / Unknown 03/01/2025 4:08 AM EDT 03/01/2025 4:43 AM EDT us Madonna Singleton MD LAB BLOOD ORDERABLES Final Resul t Performing Organization Address City/[facility]/ZIP Co de Phone Number [facility] [address] [place] [address] * (ABNORMAL) POCT glucose meter (03/01/2025 3:09 AM EDT) [facility] POCT Glucose 187(H) 74 - 99 [...] Comment 03/01/2025 3:35 AM EDT HEALTHCARE LAB Accounts Payable Coordinator ID Pat Young 03/01/2025 3:35 AM EDT [facility] Device ID [id number] 03/01/2025 3:35 AM EDT [facility]ALTH[facility]ARE LAB Specimen Type POC Capillary 03/01/2025 3:35 AM EDT [facility] Blood Capillary blood specimen / Unknown 03/01/2025 3:09 AM EDT 03/01/2025 3:35 AM EDT Madonna Singleton MD LAB POINT OF CARE TE ST DOCKED DEVICE UNSOLICITED RESULTS Final Result Performing Organization Address City/State/[facility] Co de Phone Number HEALTHCARE LAB [address] [place], [place] [id number] * (ABNORMAL) POCT glucose meter (02/28/2025 8:25 PM EDT) [facility] POCT Glucose 258(H) 74 - 99 [...] 02/28/2025 8:42 PM EDT [facility] Accounts Payable Coordinator ID Pat Young 02/28/2025 8:42 PM EDT [facility]ARE [facility] Device ID [id number] 02/28/2025 8:42 PM EDT [facility] Specimen Type POC Capillary 02/28/2025 8:42 PM EDT [facility] Blood Capillary blood specimen / Unknown 02/28/2025 8:25 PM EDT 02/28/2025 8:42 PM EDT us Madonna Singleton MD LAB POINT OF CARE TE ST DOCKED DEVICE UNSOLICITED RESULTS Final Result Performing Organization Address City/[facility] Co de Phone Number HEALTHCARE LAB [address] [place] [address] * (ABNORMAL) POCT glucose meter (02/28/2025 4:59 PM EDT) Pathologist [facility] POCT Glucose 300(H) 74 - 99 mg/dL [...] Comment 02/28/2025 5:00 PM EDT HEALTHCARE LAB Accounts Payable Coordinator ID Rocky, Serenity 02/28/2025 5:00 PM EDT HEALTHCARE LAB Device ID [id number] 02/28/2025 5:00 PM EDT HEALTHCARE LAB Specimen Type POC Capillary 02/28/2025 5:00 PM EDT [facility] Blood Capillary blood specimen / Unknown 02/28/2025 4:59 PM EDT 02/28/2025 5:00 PM EDT us Madonna Singleton MD LAB POINT OF CARE TE ST DOCKED DEVICE UNSOLICITED RESULTS Final Result Performing Organization Address City/[facility] [address]/ZIP Co de Phone Number HEALTHCARE LAB [address] [place] [address] * (ABNORMAL) CBC and Differential (02/28/2025 1:04 PM EDT) WBC Count 7.39 3.70 - 10.30 10*3/uL LAB HEMATOLOGY METHOD 02/28/2025 1:37 PM EDT [facility] RBC Count 4.30 3.90 - 5.20 10*6/uL LAB HEMATOLOGY METHOD 02/28/2025 1:37 PM EDT [facility] HGB 11.0(L) 11.2 - 15.7 g/dL LAB HEMATOLOGY METHOD 02/28/2025 1:37 PM EDT [facility] HCT 35.0 34.0 - 45.0 % LAB HEMATOLOGY METHOD 02/28/2025 1:37 PM EDT [facility] Platelet Count 399(H) 155 - 369 10*3/uL LAB HEMATOLOGY METHOD 02/28/2025 1:37 PM EDT [facility] MCV 81 79 - 98 fL LAB HEMATOLOGY METHOD 02/28/2025 1:37 PM EDT [facility] MCH 25.6(L) 26.0 - 32.0 pg LAB HEMATOLOGY METHOD 02/28/2025 1:37 PM EDT [facility] MCHC 31.4 30.7 - 35.5 g/dL LAB HEMATOLOGY METHOD 02/28/2025 1:37 PM EDT [facility] RDW 15.5(H) 11.5 - 14.5 % LAB HEMATOLOGY METHOD 02/28/2025 1:37 PM EDT [facility] MPV 9.0 8.8 - 12.5 fL LAB HEMATOLOGY METHOD 02/28/2025 1:37 PM EDT [facility] nRBC 0.0 <=0.0 per 100 WBCs LAB HEMATOLOGY METHOD 02/28/2025 1:37 PM EDT [facility] Differential Type Automated LAB HEMATOLOGY METHOD 02/28/2025 1:37 PM EDT [facility] Neutrophils % 62 % LAB HEMATOLOGY METHOD 02/28/2025 1:37 PM EDT [facility] Lymphocytes % 21 % LAB HEMATOLOGY METHOD 02/28/2025 1:37 PM EDT [facility] Monocytes % 9 % LAB HEMATOLOGY METHOD 02/28/2025 1:37 PM EDT [facility] Eosinophils % 6 % LAB HEMATOLOGY METHOD 02/28/2025 1:37 PM EDT [facility] Basophils % 1 % LAB HEMATOLOGY METHOD 02/28/2025 1:37 PM EDT [facility] Immature Granulocytes % 1 % LAB HEMATOLOGY METHOD 02/28/2025 1:37 PM EDT [facility] Neutrophils Absolute 4.64 1.60 - 6.10 10*3/uL LAB HEMATOLOGY METHOD 02/28/2025 1:37 PM EDT [facility] Lymphocytes Absolute 1.54 1.20 - 3.90 10*3/uL LAB HEMATOLOGY METHOD 02/28/2025 1:37 PM EDT [facility] Monocytes Absolute 0.69 0.30 - 0.90 10*3/uL LAB HEMATOLOGY METHOD 02/28/2025 1:37 PM EDT [facility] Eosinophils Absolute 0.41 0.00 - 0.50 10*3/uL LAB HEMATOLOGY METHOD 02/28/2025 1:37 PM EDT [facility] Basophils Absolute 0.05 0.00 - 0.10 10*3/uL LAB HEMATOLOGY METHOD 02/28/2025 1:37 PM EDT [facility] Immature Granulocytes Absolute 0.06 0.00 - 0.06 10*3/uL LAB HEMATOLOGY METHOD 02/28/2025 1:37 PM EDT [facility] Blood Venous blood specimen / Unknown Venipuncture / Unknown 02/28/2025 1:04 PM EDT 02/28/2025 1:28 PM EDT Narrative [facility] - 02/28/2025 1:37 PM EDT Therapeutic decision making should be based on absolute values, rather than percentages. us Madonna Singleton MD LAB BLOOD ORDERABLES Final Resul t [facility] [address] [place] [address] * (ABNORMAL) Magnesium, Plasma (02/28/2025 1:04 PM EDT) Magnesium, Plasma 1.7(L) 1.9 - 2.4 mg/dL 02/28/2025 1:45 PM EDT [facility] Blood Venous blood specimen / Unknown Venipuncture / Unknown 02/28/2025 1:04 PM EDT 02/28/2025 1:14 PM EDT us Madonnaryan Singleton MD LAB BLOOD ORDERABLES Final Resul t [facility] [address] [place] [address] * (ABNORMAL) Basic Metabolic Panel, Plasma (02/28/2025 1:04 PM EDT) Glucose, Plasma 166(H) 74 - 99 mg/dL 02/28/2025 1:45 PM EDT [facility] BUN, Plasma 40(H) 8 - 23 mg/dL 02/28/2025 1:45 PM EDT [facility] Creatinine, Plasma 1.99(H) 0.60 - 1.10 mg/dL 02/28/2025 1:45 PM EDT [facility] BUN/Creatinine Ratio 20 02/28/2025 1:45 PM EDT [facility] Sodium, Plasma 130(L) 136 - 145 mmol/L 02/28/2025 1:45 PM EDT [facility] Potassium, Plasma 4.6 3.6 - 4.9 mmol/L 02/28/2025 1:45 PM EDT [facility] Chloride, Plasma 93(L) 97 - 107 mmol/L 02/28/2025 1:45 PM EDT [facility] CO2, Plasma 24 22 - 29 mmol/L 02/28/2025 1:45 PM EDT [facility] Anion Gap 13 6 - 16 mmol/L 02/28/2025 1:45 PM EDT [facility] Total Calcium, Plasma 9.3 8.9 - 10.2 mg/dL 02/28/2025 1:45 PM EDT [facility] eGFRcr 27.4 mL/min/1.7 3m*2 02/28/2025 1:45 PM EDT [facility] Comment:Reported eGFRcr in m L/min/1.73m2 is based the CKD-EPI 2020 equation that does not use a race coefficient. Blood Venous blood specimen / Unknown Venipuncture / Unknown 02/28/2025 1:04 PM EDT 02/28/2025 1:14 PM EDT us Madonna Singleton MD LAB BLOOD ORDERABLES Final Resul t Performing Organization Address City/[facility]/ZIP Co de Phone Number [facility] [address] [place] [address] * Phosphorus, Plasma (02/28/2025 1:04 PM EDT) [facility] Phosphorus, Plasma 4.1 2.5 - 4.5 mg/dL 02/28/2025 1:45 PM EDT [facility] Blood Venous blood specimen / Unknown Venipuncture / Unknown 02/28/2025 1:04 PM EDT 02/28/2025 1:14 PM EDT us Madonna Singleton MD LAB BLOOD ORDERABLES Final Resul t Performing Organization Address [facility] Co de Phone Number [facility] [address] [place] [address] * (ABNORMAL) POCT glucose meter (02/28/2025 12:17 PM EDT) [facility] POCT Glucose 161(H) 74 - 99 mg/dL [...] 02/28/2025 12:19 PM EDT [facility] Accounts Payable Coordinator ID Malcolm Hidalgoedwardty 02/28/2025 12:19 PM EDT [facility] Device ID [id number] 02/28/2025 12:19 PM EDT [facility] Specimen Type POC Capillary 02/28/2025 12:19 PM EDT [facility] Blood Capillary blood specimen / Unknown 02/28/2025 12:17 PM EDT 02/28/2025 12:19 PM EDT us Madonna Singleton MD LAB POINT OF CARE TE ST DOCKED DEVICE UNSOLICITED RESULTS Final Result Performing Organization Address [facility]/ZIP Co de Phone Number HEALTHCARE LAB [address] [place] [address] * (ABNORMAL) POCT glucose meter (02/27/2025 8:12 PM EDT) [facility] POCT Glucose 211(H) 74 - 99 [...] Comment 02/27/2025 8:14 PM EDT [facility]ALTHCARE LAB Accounts Payable Coordinator ID Pat Young 02/27/2025 8:14 PM EDT [facility]ARE LAB Device ID [id number] 02/27/2025 8:14 PM EDT [facility]ARE LAB Specimen Type POC Capillary 02/27/2025 8:14 PM EDT [facility] Blood Capillary blood specimen / Unknown 02/27/2025 8:12 PM EDT 02/27/2025 8:14 PM EDT Madonna Singleton MD LAB POINT OF CARE TE ST DOCKED DEVICE UNSOLICITED RESULTS Final Result [facility] [address] [place] [address] * (ABNORMAL) POCT glucose meter (02/27/2025 5:20 PM EDT) [facility] POCT Glucose 171(H) 74 - 99 [...] 02/27/2025 5:21 PM EDT [facility] Accounts Payable Coordinator ID Nancy Hidalgo 02/27/2025 5:21 PM EDT [facility] Device ID [id number] 02/27/2025 5:21 PM EDT [facility]ARE LAB Specimen Type POC Capillary 02/27/2025 5:21 PM EDT [facility] Blood Capillary blood specimen / Unknown 02/27/2025 5:20 PM EDT 02/27/2025 5:21 PM EDT us Madonna Singleton MD LAB POINT OF CARE TE ST DOCKED DEVICE UNSOLICITED RESULTS Final Result [facility] [address] [place] [address] * (ABNORMAL) POCT glucose meter (02/27/2025 12:29 [...] Comment 02/27/2025 12:30 PM EDT [facility]ALTHCARE LAB Accounts Payable Coordinator ID Daniela Carroll 025 12:30 PM EDT [facility]ARE LAB Device ID [id number] 02/27/2025 12:30 PM EDT [facility]ARE [facility] Specimen Type POC Capillary 02/27/2025 12:30 PM EDT [facility] Blood Capillary blood specimen / Unknown 02/27/2025 12:29 PM EDT 02/27/2025 12:30 PM EDT us Ludy Hill MD LAB POINT OF CARE TE ST DOCKED DEVICE UNSOLICITED RESULTS Final Result [facility] [address] [place] [address] * XR Panorex (02/27/2025 12:13 PM EDT) [...] in the posterior aspect of tooth #31. [place] wear in tooth number 8, 9 and 23. No periapical lucency Procedure Note Lucas Cristobal MD - 02/27/2025 CLINICAL INDICATION: Odontogenic infection TECHNIQUE: XR PANOREX COMPARISON: None. FINDINGS: Rounded lucency in tooth #6. Aggressive destruction in the posterioraspect of tooth #31. [place] wear in tooth number 8, 9 and [...] 02/27/2025 8:21 AM EDT [facility] Accounts Payable Coordinator ID Daniela Carroll 025 8:21 AM EDT [facility] Device ID [id number] 02/27/2025 8:21 AM EDT [facility] Specimen Type POC Capillary 02/27/2025 8:21 AM EDT [facility] Blood Capillary blood specimen / Unknown 02/27/2025 8:19 AM EDT 02/27/2025 8:21 AM EDT us Ludy Hill MD LAB POINT OF CARE TE ST DOCKED DEVICE UNSOLICITED RESULTS Final Result [facility] [address] [place] [address] * (ABNORMAL) POCT glucose meter (02/26/2025 7:37 [...] Comment 02/26/2025 7:38 PM EDT HEALTHCARE LAB Accounts Payable Coordinator ID Daniela Mcbride 02/26/2025 7:38 PM EDT HEALTHCARE LAB Device ID [id number] 02/26/2025 7:38 PM EDT [facility] Specimen Type POC Capillary 02/26/2025 7:38 PM EDT [facility] Blood Capillary blood specimen / Unknown 02/26/2025 7:37 PM EDT 02/26/2025 7:38 PM EDT us Ludy Hill MD LAB POINT OF CARE TE ST DOCKED DEVICE UNSOLICITED RESULTS Final Result [facility] [address] [place] [address] * (ABNORMAL) POCT glucose meter (02/26/2025 5:16 [...] Comment 02/26/2025 5:18 PM EDT [facility]ALTH[facility]ARE LAB Accounts Payable Coordinator ID Bassem Jay 02/26/2025 5:18 PM EDT HEALTH[facility]ARE LAB Device ID [id number] 02/26/2025 5:18 PM EDT [facility]ALTH[facility]ARE [facility] Specimen Type POC Capillary 02/26/2025 5:18 PM EDT [facility] Blood Capillary blood specimen / Unknown 02/26/2025 5:16 PM EDT 02/26/2025 5:18 PM EDT us Ludy Hill MD LAB POINT OF CARE TE ST DOCKED DEVICE UNSOLICITED RESULTS Final Result Performing Organization Address City/State/[facility] Co de Phone Number HEALTHCARE LAB [address] [place] [address] * (ABNORMAL) POCT glucose meter (02/26/2025 1:08 PM EDT) [facility] Signature POCT Glucose 223(H) 74 - 99 [...] Comment 02/26/2025 1:09 PM EDT HEALTHCARE LAB Accounts Payable Coordinator ID Bassem Jay 02/26/2025 1:09 PM EDT HEALTH[facility]ARE LAB Device ID [id number] 02/26/2025 1:09 PM EDT [facility]ALTH[facility]ARE LAB Specimen Type POC Capillary 02/26/2025 1:09 PM EDT [facility] Blood Capillary blood specimen / Unknown 02/26/2025 1:08 PM EDT 02/26/2025 1:09 PM EDT us Ludy Hill MD LAB POINT OF CARE TE ST DOCKED DEVICE UNSOLICITED RESULTS Final Result [facility] [address] [place] [address] * (ABNORMAL) POCT glucose meter (02/26/2025 9:45 [...] for testing. Comment 02/26/2025 9:46 AM EDT [facility] Accounts Payable Coordinator ID Bassem Jay 02/26/2025 9:46 AM EDT [facility] Device ID [id number] 02/26/2025 9:46 AM EDT [facility] Specimen Type POC Capillary 02/26/2025 9:46 AM EDT [facility] Blood Capillary blood specimen / Unknown 02/26/2025 9:45 AM EDT 02/26/2025 9:46 AM EDT us Ludy Hill MD LAB POINT OF CARE TE ST DOCKED DEVICE UNSOLICITED RESULTS Final Result [facility] [address] [place] [address] * (ABNORMAL) Hemogram (CBC) (02/26/2025 4:51 AM EDT) WBC Count 7.59 3.70 - 10.30 10*3/uL LAB HEMATOLOGY METHOD 02/26/2025 5:25 AM EDT [facility] RBC Count 4.00 3.90 - 5.20 10*6/uL LAB HEMATOLOGY METHOD 02/26/2025 5:25 AM EDT [facility] HGB 10.3(L) 11.2 - 15.7 g/dL LAB HEMATOLOGY METHOD 02/26/2025 5:25 AM EDT [facility] HCT 32.3(L) 34.0 - 45.0 % LAB HEMATOLOGY METHOD 02/26/2025 5:25 AM EDT [facility] Platelet Count 375(H) 155 - 369 10*3/uL LAB HEMATOLOGY METHOD 02/26/2025 5:25 AM EDT [facility] MCV 81 79 - 98 fL LAB HEMATOLOGY METHOD 02/26/2025 5:25 AM EDT [facility] MCH 25.8(L) 26.0 - 32.0 pg LAB HEMATOLOGY METHOD 02/26/2025 5:25 AM EDT [facility] MCHC 31.9 30.7 - 35.5 g/dL LAB HEMATOLOGY METHOD 02/26/2025 5:25 AM EDT [facility] RDW 15.5(H) 11.5 - 14.5 % LAB HEMATOLOGY METHOD 02/26/2025 5:25 AM EDT [facility] MPV 8.9 8.8 - 12.5 fL LAB HEMATOLOGY METHOD 02/26/2025 5:25 AM EDT [facility] nRBC 0.0 <=0.0 per 100 WBCs LAB HEMATOLOGY METHOD 02/26/2025 5:25 AM EDT [facility] Blood Venous blood specimen / Unknown Venipuncture / Unknown 02/26/2025 4:51 AM EDT 02/26/2025 5:12 AM EDT us Ludy Hill MD LAB BLOOD ORDERABLES Final Resul t [facility] [address] [place] [address] * (ABNORMAL) Magnesium, Plasma (02/26/2025 4:51 AM EDT) Magnesium, Plasma 1.7(L) 1.9 - 2.4 mg/dL 02/26/2025 5:54 AM EDT [facility] Blood Venous blood specimen / Unknown Venipuncture / Unknown 02/26/2025 4:51 AM EDT 02/26/2025 5:13 AM EDT us Ludy Hill MD LAB BLOOD ORDERABLES Final Resul t [facility] [address] [place] [address] * (ABNORMAL) Renal function panel (02/26/2025 4:51 AM EDT) Glucose, Plasma 156(H) 74 - 99 mg/dL 02/26/2025 5:54 AM EDT [facility] BUN, Plasma 26(H) 8 - 23 mg/dL 02/26/2025 5:54 AM EDT [facility] Creatinine, Plasma 1.62(H) 0.60 - 1.10 mg/dL 02/26/2025 5:54 AM EDT [facility] BUN/Creatinine Ratio 16 02/26/2025 5:54 AM EDT [facility] Sodium, Plasma 133(L) 136 - 145 mmol/L 02/26/2025 5:54 AM EDT [facility] Potassium, Plasma 4.2 3.6 - 4.9 mmol/L 02/26/2025 5:54 AM EDT [facility] Chloride, Plasma 96(L) 97 - 107 mmol/L 02/26/2025 5:54 AM EDT [facility] CO2, Plasma 24 22 - 29 mmol/L 02/26/2025 5:54 AM EDT [facility] Anion Gap 13 6 - 16 mmol/L 02/26/2025 5:54 AM EDT [facility] Total Calcium, Plasma 8.9 8.9 - 10.2 mg/dL 02/26/2025 5:54 AM EDT [facility] Phosphorus, Plasma 3.8 2.5 - 4.5 mg/dL 02/26/2025 5:54 AM EDT [facility] Albumin, Plasma 3.5 3.5 - 5.2 g/dL 02/26/2025 5:54 AM EDT [facility] eGFRcr 35.1 mL/min/1.7 3m*2 02/26/2025 5:54 AM EDT [facility] Comment:Reported eGFRcr in m L/min/1.73m2 is based the CKD-EPI 2020 equation that does not use a race coefficient. Blood Venous blood specimen / Unknown Venipuncture / Unknown 02/26/2025 4:51 AM EDT 02/26/2025 5:13 AM EDT us Ludy Hill MD LAB BLOOD ORDERABLES Final Resul t Performing Organization Address City/[facility] Co de Phone Number [facility] [address] [place] [address] * (ABNORMAL) POCT glucose meter (02/25/2025 8:37 PM EDT) [facility] POCT Glucose 289(H) 74 - 99 [...] Comment 02/25/2025 8:39 PM EDT HEALTHCARE LAB Accounts Payable Coordinator ID Daniela Mcbride 02/25/2025 8:39 PM EDT HEALTHCARE LAB Device ID [id number] 02/25/2025 8:39 PM EDT [facility]ALTHCARE LAB Specimen Type POC Capillary 02/25/2025 8:39 PM EDT [facility]ARE LAB Blood Capillary blood specimen / Unknown 02/25/2025 8:37 PM EDT 02/25/2025 8:39 PM EDT us Ludy Hill MD LAB POINT OF CARE TE ST DOCKED DEVICE UNSOLICITED RESULTS Final Result Performing Organization Address City/[facility]/ZIP Co de Phone Number HEALTHCARE LAB [address] [place] [address] * ECG Adult (02/25/2025 6:38 PM EDT) Pathologist [facility] EKG DIAGNOSIS CLASS Abnormal MUSE ECG Ventricular Rate 68 BPM MUSE ECG Atrial Rate 68 BPM MUSE ECG [place] Interval 198 ms MUSE ECG QRSD Interval 136 ms MUSE ECG QT Interval 450 ms MUSE ECG QTC Interval 478 ms MUSE ECG P [place] 71 degrees MUSE ECG R [place] 265 degrees MUSE ECG T Wave [place] 50 degrees MUSE ECG Diagnosis Sinus rhythm with marked sinus arrhythmia MUSE ECG Diagnosis Right bundle branch block MUSE ECG Diagnosis Abnormal ECG MUSE ECG Diagnosis MUSE ECG Diagnosis Confirmed by Karly Gracia ([id number]) on 02/26/2025 3:20:41 PM MUSE ECG 02/25/2025 6:38 PM EDT 02/26/2025 3:20 PM EDT us Ludy Hill MD ECG ORDERABLES Final Result Performing Organization Address City/[facility] [address]/[facility] Co de Phone Number MUSE [...] 02/25/2025 5:30 PM EDT [facility] Accounts Payable Coordinator ID Bassem Jay 02/25/2025 5:30 PM EDT [facility]ALTHCARE LAB Device ID [id number] 02/25/2025 5:30 PM EDT [facility]ALTH[facility]ARE LAB Specimen Type POC Capillary 02/25/2025 5:30 PM EDT [facility] Blood Capillary blood specimen / Unknown 02/25/2025 5:28 PM EDT 02/25/2025 5:30 PM EDT us Ludy Hill MD LAB POINT OF CARE TE ST DOCKED DEVICE UNSOLICITED RESULTS Final Result [facility] [address] [place] [address] * (ABNORMAL) POCT glucose meter (02/25/2025 1:08 [...] Comment 02/25/2025 1:09 PM EDT HEALTHCARE LAB Accounts Payable Coordinator ID Bassem Jay 02/25/2025 1:09 PM EDT HEALTHCARE LAB Device ID [id number] 02/25/2025 1:09 PM EDT [facility]ALTH[facility]ARE LAB Specimen Type POC Capillary 02/25/2025 1:09 PM EDT [facility] Blood Capillary blood specimen / Unknown 02/25/2025 1:08 PM EDT 02/25/2025 1:09 PM EDT us Ludy Hill MD LAB POINT OF CARE TE ST DOCKED DEVICE UNSOLICITED RESULTS Final Result [facility] [address] [place] [address] * ECG Adult (02/25/2025 12:27 PM EDT) EKG DIAGNOSIS CLASS Abnormal MUSE ECG Ventricular Rate 79 BPM MUSE ECG Atrial Rate 79 BPM MUSE ECG [place] Interval 184 ms MUSE ECG QRSD Interval 134 ms MUSE ECG QT Interval 414 ms MUSE ECG QTC Interval 474 ms MUSE ECG R [place] 229 degrees MUSE ECG T Wave [place] 59 degrees MUSE ECG Diagnosis Sinus rhythm [...] POCT glucose meter (02/25/2025 8:21 AM EDT) [facility] POCT Glucose 128(H) 74 - 99 [...] Comment 02/25/2025 8:22 AM EDT HEALTHCARE LAB Accounts Payable Coordinator ID Bassem Jay 02/25/2025 8:22 AM EDT HEALTH[facility]ARE LAB Device ID [id number] 02/25/2025 8:22 AM EDT HEALTHCARE LAB Specimen Type POC Capillary 02/25/2025 8:22 AM EDT [facility] Blood Capillary blood specimen / Unknown 02/25/2025 8:21 AM EDT 02/25/2025 8:22 AM EDT Luda Ralph MD LAB POINT OF CARE TE ST DOCKED DEVICE UNSOLICITED RESULTS Final Result Performing Organization Address City/[facility] [address]/ZIP Co de Phone Number [facility] [address] [place] [address] * (ABNORMAL) Cystatin C (02/25/2025 1:36 AM EDT) [facility] Cystatin C 2.37(H) 0.61 - 0.95 mg/L 02/25/2025 2:27 AM EDT [facility] Blood Venous blood specimen / Unknown Venipuncture / Unknown 02/25/2025 1:36 AM EDT 02/25/2025 1:57 AM EDT us Luda Ralph MD LAB BLOOD ORDERABLES Final R esult Performing Organization Address City/[facility] [address]/ZIP Co de Phone Number [facility] [address] [place] [address] * (ABNORMAL) Basic Metabolic Panel, Plasma (02/25/2025 1:36 AM EDT) [facility] Glucose, Plasma 95 74 - 99 mg/dL 02/25/2025 2:27 AM EDT [facility] BUN, Plasma 34(H) 8 - 23 mg/dL 02/25/2025 2:27 AM EDT [facility] Creatinine, Plasma 1.62(H) 0.60 - 1.10 mg/dL 02/25/2025 2:27 AM EDT [facility] BUN/Creatinine Ratio 21 02/25/2025 2:27 AM EDT [facility] Sodium, Plasma 134(L) 136 - 145 mmol/L 02/25/2025 2:27 AM EDT [facility] Potassium, Plasma 3.9 3.6 - 4.9 mmol/L 02/25/2025 2:27 AM EDT [facility] Chloride, Plasma 97 97 - 107 mmol/L 02/25/2025 2:27 AM EDT [facility] CO2, Plasma 23 22 - 29 mmol/L 02/25/2025 2:27 AM EDT [facility] Anion Gap 14 6 - 16 mmol/L 02/25/2025 2:27 AM EDT [facility] Total Calcium, Plasma 8.9 8.9 - 10.2 mg/dL 02/25/2025 2:27 AM EDT [facility] eGFRcr 35.1 mL/min/1.7 3m*2 02/25/2025 2:27 AM EDT [facility] Comment:Reported eGFRcr in m L/min/1.73m2 is based the CKD-EPI 2020 equation that does not use a race coefficient. Blood Venous blood specimen / Unknown Venipuncture / Unknown 02/25/2025 1:36 AM EDT 02/25/2025 1:57 AM EDT us Luda Ralph MD LAB BLOOD ORDERABLES Final R esult [facility] [address] [place] [address] * (ABNORMAL) POCT glucose meter (02/24/2025 8:21 [...] Comment 02/24/2025 8:22 PM EDT HEALTHCARE LAB Accounts Payable Coordinator ID Daniela Mcbride 02/24/2025 8:22 PM EDT [facility]ALTH[facility]ARE LAB Device ID [id number] 02/24/2025 8:22 PM EDT [facility]ALTH[facility]ARE LAB Specimen Type POC Capillary 02/24/2025 8:22 PM EDT [facility] Blood Capillary blood specimen / Unknown 02/24/2025 8:21 PM EDT 02/24/2025 8:22 PM EDT Luda Ralph MD LAB POINT OF CARE TE ST DOCKED DEVICE UNSOLICITED RESULTS Final Result [facility] [address] [place] [address] * POCT glucose meter (02/24/2025 5:55 PM EDT) [facility] POCT Glucose 93 74 - 99 [...] Comment 02/24/2025 5:56 PM EDT HEALTHCARE [facility] Accounts Payable Coordinator ID Delroy Bernal 02/24/2025 5:56 PM EDT [facility] Device ID [id number] 02/24/2025 5:56 PM EDT [facility] Specimen Type POC Capillary 02/24/2025 5:56 PM EDT [facility] Blood Capillary blood specimen / Unknown 02/24/2025 5:55 PM EDT 02/24/2025 5:56 PM EDT us Luda Ralph MD LAB POINT OF CARE TE ST DOCKED DEVICE UNSOLICITED RESULTS Final Result Performing Organization Address [facility] [address] [facility] de Phone Number [facility]CARE [facility] [address] [place] [address] * (ABNORMAL) POCT glucose meter (02/24/2025 11:26 [...] for testing. Comment 02/24/2025 11:27 AM EDT [facility] Accounts Payable Coordinator ID Delroy Bernal 02/24/2025 11:27 AM EDT [facility] Device ID [id number] 02/24/2025 11:27 AM EDT [facility] Specimen Type POC Capillary 02/24/2025 11:27 AM EDT [facility] Blood Capillary blood specimen / Unknown 02/24/2025 11:26 AM EDT 02/24/2025 11:27 AM EDT us Luda Ralph MD LAB POINT OF CARE TE ST DOCKED DEVICE UNSOLICITED RESULTS Final Result Performing Organization Address City/[facility] [address]/[facility] de Phone Number [facility] [address] [place] [address] * [place] [facility], E/M 30-74 MINUTES (02/24/2025 7:08 [...] POCT glucose meter (02/24/2025 5:20 AM EDT) [facility] POCT Glucose 180(H) 74 - 99 mg/dL 02/24/2025 5:22 AM EDT [facility] Comment:Accuracy of a glucos e result [...] testing. Comment 02/24/2025 5:22 AM EDT [facility] Accounts Payable Coordinator ID Daniela Mcbride 02/24/2025 5:22 AM EDT [facility] Device ID [id number] 02/24/2025 5:22 AM EDT [facility] Specimen Type POC Capillary 02/24/2025 5:22 AM EDT [facility] Blood Capillary blood specimen / Unknown 02/24/2025 5:20 AM EDT 02/24/2025 5:22 AM EDT Luda Ralph MD LAB POINT OF CARE TE ST DOCKED DEVICE UNSOLICITED RESULTS Final Result [facility] [address] [place] [address] * (ABNORMAL) Cystatin C (02/24/2025 1:01 AM EDT) Pathologist [facility] Cystatin C 2.5(H) 0.61 - 0.95 mg/L 02/24/2025 10:16 AM EDT [facility] Blood Venous blood specimen / Unknown Venipuncture / Unknown 02/24/2025 1:01 AM EDT 02/24/2025 1:06 AM EDT us Luda Ralph MD LAB BLOOD ORDERABLES Final R esult [facility] [address] [place] [id number] * (ABNORMAL) CBC and Differential (02/24/2025 1:01 AM EDT) Pathologist [facility] WBC Count 9.39 3.70 - 10.30 10*3/uL LAB HEMATOLOGY METHOD 02/24/2025 1:16 AM EDT [facility] RBC Count 3.53(L) 3.90 - 5.20 10*6/uL LAB HEMATOLOGY METHOD 02/24/2025 1:16 AM EDT [facility] HGB 9.1(L) 11.2 - 15.7 g/dL LAB HEMATOLOGY METHOD 02/24/2025 1:16 AM EDT [facility] HCT 28.3(L) 34.0 - 45.0 % LAB HEMATOLOGY METHOD 02/24/2025 1:16 AM EDT [facility] Platelet Count 315 155 - 369 10*3/uL LAB HEMATOLOGY METHOD 02/24/2025 1:16 AM EDT [facility] MCV 80 79 - 98 fL LAB HEMATOLOGY METHOD 02/24/2025 1:16 AM EDT [facility] MCH 25.8(L) 26.0 - 32.0 pg LAB HEMATOLOGY METHOD 02/24/2025 1:16 AM EDT [facility] MCHC 32.2 30.7 - 35.5 g/dL LAB HEMATOLOGY METHOD 02/24/2025 1:16 AM EDT [facility] RDW 15.2(H) 11.5 - 14.5 % LAB HEMATOLOGY METHOD 02/24/2025 1:16 AM EDT [facility] MPV 9.3 8.8 - 12.5 fL LAB HEMATOLOGY METHOD 02/24/2025 1:16 AM EDT [facility] nRBC 0.0 <=0.0 per 100 WBCs LAB HEMATOLOGY METHOD 02/24/2025 1:16 AM EDT [facility] Differential Type Automated LAB HEMATOLOGY METHOD 02/24/2025 1:16 AM EDT [facility] Neutrophils % 71 % LAB HEMATOLOGY METHOD 02/24/2025 1:16 AM EDT [facility] Lymphocytes % 15 % LAB HEMATOLOGY METHOD 02/24/2025 1:16 AM EDT [facility] Monocytes % 13 % LAB HEMATOLOGY METHOD 02/24/2025 1:16 AM EDT [facility] Eosinophils % 0 % LAB HEMATOLOGY METHOD 02/24/2025 1:16 AM EDT [facility] Basophils % 0 % LAB HEMATOLOGY METHOD 02/24/2025 1:16 AM EDT [facility] Immature Granulocytes % 1 % LAB HEMATOLOGY METHOD 02/24/2025 1:16 AM EDT [facility] Neutrophils Absolute 6.64(H) 1.60 - 6.10 10*3/uL LAB HEMATOLOGY METHOD 02/24/2025 1:16 AM EDT [facility] Lymphocytes Absolute 1.40 1.20 - 3.90 10*3/uL LAB HEMATOLOGY METHOD 02/24/2025 1:16 AM EDT [facility] Monocytes Absolute 1.25(H) 0.30 - 0.90 10*3/uL LAB HEMATOLOGY METHOD 02/24/2025 1:16 AM EDT [facility] Eosinophils Absolute 0.02 0.00 - 0.50 10*3/uL LAB HEMATOLOGY METHOD 02/24/2025 1:16 AM EDT [facility] Basophils Absolute 0.02 0.00 - 0.10 10*3/uL LAB HEMATOLOGY METHOD 02/24/2025 1:16 AM EDT [facility] Immature Granulocytes Absolute 0.06 0.00 - 0.06 10*3/uL LAB HEMATOLOGY METHOD 02/24/2025 1:16 AM EDT [facility] Blood Venous blood specimen / Unknown Venipuncture / Unknown 02/24/2025 1:01 AM EDT 02/24/2025 1:06 AM EDT Narrative [facility] - 02/24/2025 1:16 AM EDT Therapeutic decision making should be based on absolute values, rather than percentages. us Luda Ralph MD LAB BLOOD ORDERABLES Final R esult [facility] [address] [place] [address] * (ABNORMAL) Comprehensive metabolic panel (02/24/2025 1:01 AM EDT) Glucose, Plasma 152(H) 74 - 99 mg/dL 02/24/2025 1:44 AM EDT [facility] BUN, Plasma 40(H) 8 - 23 mg/dL 02/24/2025 1:44 AM EDT [facility] Creatinine, Plasma 2.04(H) 0.60 - 1.10 mg/dL 02/24/2025 1:44 AM EDT [facility] BUN/Creatinine Ratio 20 02/24/2025 1:44 AM EDT [facility] Sodium, Plasma 132(L) 136 - 145 mmol/L 02/24/2025 1:44 AM EDT [facility] Potassium, Plasma 4.9 3.6 - 4.9 mmol/L 02/24/2025 1:44 AM EDT [facility] Chloride, Plasma 97 97 - 107 mmol/L 02/24/2025 1:44 AM EDT [facility] CO2, Plasma 22 22 - 29 mmol/L 02/24/2025 1:44 AM EDT [facility] Anion Gap 13 6 - 16 mmol/L 02/24/2025 1:44 AM EDT [facility] Total Calcium, Plasma 8.6(L) 8.9 - 10.2 mg/dL 02/24/2025 1:44 AM EDT [facility] Total Protein 6.9 6.3 - 7.9 g/dL 02/24/2025 1:44 AM EDT [facility] Albumin, Plasma 3.3(L) 3.5 - 5.2 g/dL 02/24/2025 1:44 AM EDT [facility] AST, Plasma 16 10 - 35 U/L 02/24/2025 1:44 AM EDT [facility] Comment:Hemolyzed, result ma y be falsely increased. ALT, Plasma 15 10 - 35 U/L 02/24/2025 1:44 AM EDT [facility] Alkaline Phosphatase, Plasma 105 46 - 142 U/L 02/24/2025 1:44 AM EDT [facility] Total Bilirubin, Plasma <0.2(L) 0.2 - 1.1 mg/dL 02/24/2025 1:44 AM EDT [facility] eGFRcr 26.6 mL/min/1.7 3m*2 02/24/2025 1:44 AM EDT [facility] Comment:Reported eGFRcr in m L/min/1.73m2 is based the CKD-EPI 2020 equation that does not use a race coefficient. Blood Venous blood specimen / Unknown Venipuncture / Unknown 02/24/2025 1:01 AM EDT 02/24/2025 1:06 AM EDT Luda Ralph MD LAB BLOOD ORDERABLES Final R on license of [facility] Performing Organization Address City/[facility] [address] [facility]/ZIP Co de Phone Number [facility] [address] [place] [address] * (ABNORMAL) Ionized calcium, whole blood (02/24/2025 1:01 AM EDT) Ionized Calcium, Whole Blood 4.4(L) 4.6 - 5.1 mg/dL LAB HEMATOLOGY METHOD 02/24/2025 1:14 AM EDT [facility] Blood Venous blood specimen / Unknown Venipuncture / Unknown 02/24/2025 1:01 AM EDT 02/24/2025 1:13 AM EDT us Luda Ralph MD LAB BLOOD ORDERABLES Final R esult Performing Organization Address City/[facility] [address]/ZIP Co de Phone Number [facility] [address] [place] [address] * Phosphorus (02/24/2025 1:01 AM EDT) Phosphorus, Plasma 3.0 2.5 - 4.5 mg/dL 02/24/2025 1:44 AM EDT [facility] Blood Venous blood specimen / Unknown Venipuncture / Unknown 02/24/2025 1:01 AM EDT 02/24/2025 1:06 AM EDT Luda Ralph MD LAB BLOOD ORDERABLES Final R esult Performing Organization Address City/[facility] [address]/[facility] Co de Phone Number [facility] [address] [place] [address] * Magnesium, Plasma (02/24/2025 1:01 AM EDT) Magnesium, Plasma 2.2 1.9 - 2.4 mg/dL 02/24/2025 1:44 AM EDT [facility] Blood Venous blood specimen / Unknown Venipuncture / Unknown 02/24/2025 1:01 AM EDT 02/24/2025 1:06 AM EDT Luda Ralph MD LAB BLOOD ORDERABLES Final R esult Performing Organization Address [facility] [address]/[facility] [place] [address] * (ABNORMAL) Procalcitonin (02/24/2025 1:01 AM EDT) Procalcitonin, Plasma 0.12(H) <0.09 ng/mL 02/24/2025 1:44 AM EDT [facility] Blood Venous blood specimen / Unknown Venipuncture / Unknown 02/24/2025 1:01 AM EDT 02/24/2025 1:06 AM EDT Narrative [facility] - 02/24/2025 1:44 AM [...] predict 28 day mortality risk. Please consult [email or web address] for more information. Test performed at [facility], [facility] Laboratory. us Luda Ralph MD LAB BLOOD ORDERABLES Final R esult [facility] [address] [place] [address] * (ABNORMAL) Blood gas panel, venous (02/24/2025 1:01 AM EDT) pH, Venous 7.43 7.32 - 7.43 LAB HEMATOLOGY METHOD 02/24/2025 1:19 AM EDT [facility] pCO2, Venous 40 37 - 52 mmHg LAB HEMATOLOGY METHOD 02/24/2025 1:19 AM EDT [facility] pO2, Venous 143(H) 25 - 40 mmHg LAB HEMATOLOGY METHOD 02/24/2025 1:19 AM EDT [facility] SO2, Measured, Venous 98(H) 65 - 80 % LAB HEMATOLOGY METHOD 02/24/2025 1:19 AM EDT [facility] Base Excess, Venous 1.9 -2.0 - 3.0 mmol/L LAB HEMATOLOGY METHOD 02/24/2025 1:19 AM EDT [facility] Bicarbonate, Calculated, Venous 27(H) 22 - 26 mmol/L LAB HEMATOLOGY METHOD 02/24/2025 1:19 AM EDT [facility] Hematocrit, Whole Blood 27.7(L) 34.0 - 45.0 % LAB HEMATOLOGY METHOD 02/24/2025 1:19 AM EDT [facility] Sodium, Whole Blood 132(L) 136 - 145 mmol/L LAB HEMATOLOGY METHOD 02/24/2025 1:19 AM EDT [facility] Potassium, Whole Blood 4.3 3.6 - 4.9 mmol/L LAB HEMATOLOGY METHOD 02/24/2025 1:19 AM EDT [facility] Chloride, Whole Blood 99 97 - 107 mmol/L LAB HEMATOLOGY METHOD 02/24/2025 1:19 AM EDT [facility] Glucose, Whole Blood 154(H) 74 - 99 mg/dL LAB HEMATOLOGY METHOD 02/24/2025 1:19 AM EDT [facility] Lactate, Venous, Whole Blood 0.9 0.5 - 2.2 mmol/L LAB HEMATOLOGY METHOD 02/24/2025 1:19 AM EDT [facility] Ionized Calcium, Whole Blood 4.2(L) 4.6 - 5.1 mg/dL LAB HEMATOLOGY METHOD 02/24/2025 1:19 AM EDT [facility] Blood Venous blood specimen / Unknown Venipuncture / Unknown 02/24/2025 1:01 AM EDT 02/24/2025 1:13 AM EDT us Luda Ralph MD LAB BLOOD ORDERABLES Final R esult [facility] [address] [place] [address] * (ABNORMAL) POCT glucose meter (02/24/2025 1:00 [...] Comment 02/24/2025 1:02 AM EDT [facility] Accounts Payable Coordinator ID Daniela Mcbride 02/24/2025 1:02 AM EDT [facility] Device ID [id number] 02/24/2025 1:02 AM EDT [facility] Specimen Type POC Capillary 02/24/2025 1:02 AM EDT [facility] Blood Capillary blood specimen / Unknown 02/24/2025 1:00 AM EDT 02/24/2025 1:02 AM EDT us Luda Ralph MD LAB POINT OF CARE TE ST DOCKED DEVICE UNSOLICITED RESULTS Final Result Performing Organization Address City/[facility] [address]/ZIP Co de Phone Number [facility] [address] [place] [address] * (ABNORMAL) POCT glucose meter (02/23/2025 5:07 [...] Comment 02/23/2025 5:08 PM EDT [facility] Accounts Payable Coordinator ID WetzoldTemi 02/23/2025 5:08 PM EDT [facility] Device ID [id number] 02/23/2025 5:08 PM EDT [facility] Specimen Type POC Capillary 02/23/2025 5:08 PM EDT [facility] Blood Capillary blood specimen / Unknown 02/23/2025 5:07 PM EDT 02/23/2025 5:08 PM EDT us Luda Ralph MD LAB POINT OF CARE TE ST DOCKED DEVICE UNSOLICITED RESULTS Final Result Performing Organization Address City/[facility] [address]/ZIP Co de Phone Number [facility] [address] [place] [address] * Sodium, urine, random (02/23/2025 3:12 PM EDT) Sodium, Urine 31 mmol/L 02/23/2025 4:03 PM EDT [facility] Urine Urine specimen from urinary conduit / Unknown Non-blood Collection / Unknown 02/23/2025 3:12 PM EDT 02/23/2025 3:24 PM EDT us Luda Ralph MD LAB URINE ORDERABLES Final R esult [facility] [address] [place] [address] * Osmolality, urine (02/23/2025 3:12 PM EDT) Osmolality, Urine 408 50 - 1,200 mOsm/kg 02/23/2025 3:59 PM EDT [facility] Urine Urine specimen from urinary conduit / Unknown Non-blood Collection / Unknown 02/23/2025 3:12 PM EDT 02/23/2025 3:23 PM EDT us Luda Ralph MD LAB [place] [address] * Osmolality (02/23/2025 3:04 PM EDT) Osmolality, Serum 289 280 - 301 mOsm/Kg 02/23/2025 4:11 PM EDT [facility] Blood Venous blood specimen / Unknown Venipuncture / Unknown 02/23/2025 3:04 PM EDT 02/23/2025 3:13 PM EDT us Luda Ralph MD LAB BLOOD ORDERABLES Final R esult Performing Organization Address City/[facility] [address]/ZIP Co de Phone Number [facility] [address] [place] [address] * (ABNORMAL) Cystatin C (02/23/2025 3:04 PM EDT) Cystatin C 2.32(H) 0.61 - 0.95 mg/L 02/23/2025 3:44 PM EDT [facility] Blood Venous blood specimen / Unknown Venipuncture / Unknown 02/23/2025 3:04 PM EDT 02/23/2025 3:13 PM EDT us Luda Ralph MD LAB BLOOD ORDERABLES Final R esult Performing Organization Address City/[facility] [address]/ZIP Co de Phone Number [facility] [address] [place] [address] * (ABNORMAL) Sodium (02/23/2025 3:04 PM EDT) [facility] Sodium, Plasma 129(L) 136 - 145 mmol/L 02/23/2025 3:44 PM EDT [facility] Blood Venous blood specimen / Unknown Venipuncture / Unknown 02/23/2025 3:04 PM EDT 02/23/2025 3:13 PM EDT Luda Ralph MD LAB BLOOD ORDERABLES Final R esult [facility] [address] [place] [address] * (ABNORMAL) POCT glucose meter (02/23/2025 11:43 AM EDT) [facility] POCT Glucose 222(H) 74 - 99 [...] Comment 02/23/2025 11:44 AM EDT [facility] Accounts Payable Coordinator ID Temi Mao 02/23/2025 11:44 AM EDT [facility] Device ID [id number] 02/23/2025 11:44 AM EDT [facility] Specimen Type POC Capillary 02/23/2025 11:44 AM EDT [facility] Blood Capillary blood specimen / Unknown 02/23/2025 11:43 AM EDT 02/23/2025 11:44 AM EDT us Luda Ralph MD LAB POINT OF CARE TE ST DOCKED DEVICE UNSOLICITED RESULTS Final Result Performing Organization Address City/[facility] [address]/ZIP Co de Phone Number [facility] [address] [place] [address] * Streptococcus pneumoniae and Legionella Urinary Antigen (02/23/2025 11:05 AM EDT) [facility] Legionella pneumophila serogroup 1 Antigen Result (Urine) Negative Negative 02/24/2025 7:01 AM EDT [facility] Streptococcus pneumoniae Antigen Result (Urine) Negative Negative 02/24/2025 7:01 AM EDT [facility] Urine Urine specimen obtained by clean catch procedure / Unknown Non-blood Collection / Unknown 02/23/2025 11:05 AM EDT 02/23/2025 11:16 AM EDT us Luda Ralph MD LAB MICROBIOLOGY - GENERAL O RDERABLES Final Result [facility] [address] [place] [address] * [place] [facility], E/M 30-74 MINUTES (02/23/2025 9:10 [...] Plasma 25.9 ug/mL 02/23/2025 9:20 AM EDT [facility] Blood Venous blood specimen / Unknown Venipuncture / Unknown 02/23/2025 8:34 AM EDT 02/23/2025 8:50 AM EDT Luda Ralph MD LAB BLOOD ORDERABLES Final R esult Performing Organization Address City/[facility] [address]/ZIP Co de Phone Number [facility] [address] [place] [address] * (ABNORMAL) Sodium (02/23/2025 8:34 AM EDT) Sodium, Plasma 127(L) 136 - 145 mmol/L 02/23/2025 9:20 AM EDT [facility] Blood Venous blood specimen / Unknown Venipuncture / Unknown 02/23/2025 8:34 AM EDT 02/23/2025 8:50 AM EDT Luda Ralph MD LAB BLOOD ORDERABLES Final R esult Performing Organization Address City/[facility] [address]/[facility] Co de Phone Number [facility] [address] [place] [address] * (ABNORMAL) Blood gas panel, venous (02/23/2025 8:34 AM EDT) pH, Venous 7.39 7.32 - 7.43 LAB HEMATOLOGY METHOD 02/23/2025 8:52 AM EDT [facility] pCO2, Venous 44 37 - 52 mmHg LAB HEMATOLOGY METHOD 02/23/2025 8:52 AM EDT [facility] pO2, Venous 43(H) 25 - 40 mmHg LAB HEMATOLOGY METHOD 02/23/2025 8:52 AM EDT [facility] SO2, Measured, Venous 77 65 - 80 % LAB HEMATOLOGY METHOD 02/23/2025 8:52 AM EDT [facility] Base Excess, Venous 1.6 -2.0 - 3.0 mmol/L LAB HEMATOLOGY METHOD 02/23/2025 8:52 AM EDT [facility] Bicarbonate, Calculated, Venous 27(H) 22 - 26 mmol/L LAB HEMATOLOGY METHOD 02/23/2025 8:52 AM EDT [facility] Hematocrit, Whole Blood 27.4(L) 34.0 - 45.0 % LAB HEMATOLOGY METHOD 02/23/2025 8:52 AM EDT [facility] Sodium, Whole Blood 128(L) 136 - 145 mmol/L LAB HEMATOLOGY METHOD 02/23/2025 8:52 AM EDT [facility] Potassium, Whole Blood 4.7 3.6 - 4.9 mmol/L LAB HEMATOLOGY METHOD 02/23/2025 8:52 AM EDT [facility] Chloride, Whole Blood 93(L) 97 - 107 mmol/L LAB HEMATOLOGY METHOD 02/23/2025 8:52 AM EDT [facility] Glucose, Whole Blood 242(H) 74 - 99 mg/dL LAB HEMATOLOGY METHOD 02/23/2025 8:52 AM EDT [facility] Lactate, Venous, Whole Blood 1.1 0.5 - 2.2 mmol/L LAB HEMATOLOGY METHOD 02/23/2025 8:52 AM EDT [facility] Ionized Calcium, Whole Blood 4.6 4.6 - 5.1 mg/dL LAB HEMATOLOGY METHOD 02/23/2025 8:52 AM EDT [facility] Blood Venous blood specimen / Unknown Venipuncture / Unknown 02/23/2025 8:34 AM EDT 02/23/2025 8:50 AM EDT us Luda Ralph MD LAB BLOOD ORDERABLES Final R esult [facility] [address] [place] [address] * (ABNORMAL) POCT glucose meter (02/23/2025 5:13 AM EDT) [facility] POCT Glucose 255(H) 74 - 99 mg/dL 02/23/2025 5:14 AM EDT [facility] Comment:Accuracy of a glucos e result [...] Comment 02/23/2025 5:14 AM EDT [facility]ALTH[facility]ARE [facility] Accounts Payable Coordinator ID Daniela Mcbride 02/23/2025 5:14 AM EDT [facility] Device ID [id number] 02/23/2025 5:14 AM EDT [facility] Specimen Type POC Capillary 02/23/2025 5:14 AM EDT [facility] Blood Capillary blood specimen / Unknown 02/23/2025 5:13 AM EDT 02/23/2025 5:14 AM EDT us Luda Ralph MD LAB POINT OF CARE TE ST DOCKED DEVICE UNSOLICITED RESULTS Final Result Performing Organization Address City/[facility] [address]/[facility] Co de Phone Number [facility] [address] [place] [address] * (ABNORMAL) POCT glucose meter (02/23/2025 2:11 AM EDT) [facility] POCT Glucose 224(H) 74 - 99 [...] Comment 02/23/2025 2:12 AM EDT [facility] Accounts Payable Coordinator ID Daniela Mcbride 02/23/2025 2:12 AM EDT [facility]ALTH[facility]ARE [facility] Device ID [id number] 02/23/2025 2:12 AM EDT [facility] Specimen Type POC Capillary 02/23/2025 2:12 AM EDT [facility] Blood Capillary blood specimen / Unknown 02/23/2025 2:11 AM EDT 02/23/2025 2:12 AM EDT us Luda Ralph MD LAB POINT OF CARE TE ST DOCKED DEVICE UNSOLICITED RESULTS Final Result Performing Organization Address City/[facility] [address]/[facility] Co de Phone Number [facility] [address] [place] [address] * (ABNORMAL) Methicillin Resistant Staphylococcus aureus (MRSA) by PCR (02/23/2025 2:05 AM EDT) Methicillin Resistant Staphylococcus aureus (MRSA) by PCR Detected( A) Not Detected 02/23/2025 4:[address] [facility] Swab Both anterior nares / Unknown Non-blood Collection / Unknown 02/23/2025 2:05 AM EDT 02/23/2025 3:06 AM EDT Narrative [facility] - 02/23/2025 4:19 AM [...] MICROBIOLOGY - GENERAL O RDERABLES Final Result [facility] [address] [place] [address] * (ABNORMAL) Nasopharyngeal Respiratory Panel (02/23/2025 2:05 AM EDT) Pathologist [facility] Human Rhinovirus/Ent erovirus PCR Result Detected( A) Not Detected 02/23/2025 5:[address] [facility] Swab Nasopharyngeal structure / Unknown Non-blood Collection / Unknown 02/23/2025 2:05 AM EDT 02/23/2025 3:06 AM EDT Narrative [facility] - 02/23/2025 5:07 AM [...] Respiratory PCR Panel is performed using the [facility] ePlex instrument. This test is FDA approved for use with Nasopharyngeal swabs only. This test is used for clinical purposes. It should not be regarded as investigational or for research. The [facility] Clinical Microbiology Laboratory is certified under the Clinical Laboratory Improvement Amendments of 1988 (CLIA-88) as qualified to perform high complexity clinical laboratory testing. Luda Ralph MD LAB MICROBIOLOGY - GENERAL O RDERABLES Final Result Performing Organization Address [facility] [address] [facility] Co de Phone Number [facility] [address] [place] [address] * Anti Xa Level Low Molecular Weight (02/23/2025 2:04 AM EDT) Anti Xa Level Low Molecular Weight Heparin 1.12 <2.00 IU/mL LAB COAGULATION METHOD 02/23/2025 2:44 AM EDT [facility] Blood Venous blood specimen / Unknown Venipuncture / Unknown 02/23/2025 2:04 AM EDT 02/23/2025 2:24 AM EDT Narrative [facility] - 02/23/2025 2:44 AM EDT Therapeutic Range: LMWH enoxaparin 1mg/kg/dose, 12hrs - peak (3-5 hours after dose): 0.5 - 1.0 IU/mL LMWH enoxaparin 1.5mg/kg/dose, 24hrs - peak (3-5 hours after dose): 1.0 - 2.0 IU/mL LMWH enoxaparin prophylaxis: Not established Luda Ralph MD LAB BLOOD ORDERABLES Final R esult Performing Organization Address [facility] Co de Phone Number [facility] [address] [place] [address] * (ABNORMAL) Troponin T, High Sensitivity, 2 Hour, Plasma (02/23/2025 2:04 AM EDT) Troponin T, High Sensitivity, 2 Hour 37(H) <14 ng/L 02/23/2025 2:52 AM EDT [facility] Troponin Delta Interpretation Not Calculated 02/23/2025 2:52 AM EDT [facility] Comment:Specimen not collect ed within acceptable timeframe. Delta will not be calculated. Blood Venous blood specimen / Unknown Venipuncture / Unknown 02/23/2025 2:04 AM EDT 02/23/2025 2:24 AM EDT Luda Ralph MD LAB BLOOD ORDERABLES Final R esult Performing Organization Address City/[facility] [address]/ZIP Co de Phone Number [facility] [address] [place] [address] * (ABNORMAL) Sodium (02/23/2025 2:04 AM EDT) Sodium, Plasma 125(L) 136 - 145 mmol/L 02/23/2025 2:45 AM EDT [facility] Blood Venous blood specimen / Unknown Venipuncture / Unknown 02/23/2025 2:04 AM EDT 02/23/2025 2:24 AM EDT Luda Ralph MD LAB BLOOD ORDERABLES Final R esult Performing Organization Address City/[facility] [address]/ZIP Co de Phone Number [facility] [address] [place] [address] * (ABNORMAL) Blood gas panel, venous (02/23/2025 2:04 AM EDT) pH, Venous 7.39 7.32 - 7.43 LAB HEMATOLOGY METHOD 02/23/2025 2:29 AM EDT [facility] pCO2, Venous 43 37 - 52 mmHg LAB HEMATOLOGY METHOD 02/23/2025 2:29 AM EDT [facility] pO2, Venous 71(H) 25 - 40 mmHg LAB HEMATOLOGY METHOD 02/23/2025 2:29 AM EDT [facility] SO2, Measured, Venous 94(H) 65 - 80 % LAB HEMATOLOGY METHOD 02/23/2025 2:29 AM EDT [facility] [facility] Base Excess, Venous 0.7 -2.0 - 3.0 mmol/L LAB HEMATOLOGY METHOD 02/23/2025 2:29 AM EDT [facility] Bicarbonate, Calculated, Venous 26 22 - 26 mmol/L LAB HEMATOLOGY METHOD 02/23/2025 2:29 AM EDT [facility] Hematocrit, Whole Blood 26.1(L) 34.0 - 45.0 % LAB HEMATOLOGY METHOD 02/23/2025 2:29 AM EDT [facility] Sodium, Whole Blood 127(L) 136 - 145 mmol/L LAB HEMATOLOGY METHOD 02/23/2025 2:29 AM EDT [facility] Potassium, Whole Blood 4.7 3.6 - 4.9 mmol/L LAB HEMATOLOGY METHOD 02/23/2025 2:29 AM EDT [facility] Chloride, Whole Blood 93(L) 97 - 107 mmol/L LAB HEMATOLOGY METHOD 02/23/2025 2:29 AM EDT [facility] Glucose, Whole Blood 221(H) 74 - 99 mg/dL LAB HEMATOLOGY METHOD 02/23/2025 2:29 AM EDT [facility] Lactate, Venous, Whole Blood 0.9 0.5 - 2.2 mmol/L LAB HEMATOLOGY METHOD 02/23/2025 2:29 AM EDT [facility] Ionized Calcium, Whole Blood 3.7(L) 4.6 - 5.1 mg/dL LAB HEMATOLOGY METHOD 02/23/2025 2:29 AM EDT [facility] Blood Venous blood specimen / Unknown Venipuncture / Unknown 02/23/2025 2:04 AM EDT 02/23/2025 2:25 AM EDT Luda Ralph MD LAB BLOOD ORDERABLES Final R esult [facility] [address] [place] [address] * Vancomycin, random (02/23/2025 12:05 AM EDT) Vancomycin, Random, Plasma <4.0 ug/mL 02/23/2025 12:44 AM EDT [facility] Blood Venous blood specimen / Unknown Venipuncture / Unknown 02/23/2025 12:05 AM EDT 02/23/2025 12:16 AM EDT Luda Ralph MD LAB BLOOD ORDERABLES Final R esult Performing Organization Address City/[facility] [address]/ZIP Co de Phone Number [facility] [address] [place] [address] * (ABNORMAL) Sodium (02/23/2025 12:05 AM EDT) Sodium, Plasma 127(L) 136 - 145 mmol/L 02/23/2025 12:44 AM EDT [facility] Blood Venous blood specimen / Unknown Venipuncture / Unknown 02/23/2025 12:05 AM EDT 02/23/2025 12:17 AM EDT us Luda Ralph MD LAB BLOOD ORDERABLES Final R esult Performing Organization Address [facility] [address]/ZIP Co de Phone Number [facility] [address] [place] [address] * (ABNORMAL) Blood gas panel, venous (02/23/2025 12:05 AM EDT) pH, Venous 7.33 7.32 - 7.43 LAB HEMATOLOGY METHOD 02/23/2025 12:18 AM EDT [facility] pCO2, Venous 50 37 - 52 mmHg LAB HEMATOLOGY METHOD 02/23/2025 12:18 AM EDT [facility] pO2, Venous 60(H) 25 - 40 mmHg LAB HEMATOLOGY METHOD 02/23/2025 12:18 AM EDT [facility] SO2, Measured, Venous 89(H) 65 - 80 % LAB HEMATOLOGY METHOD 02/23/2025 12:18 AM EDT [facility] Base Excess, Venous 0.3 -2.0 - 3.0 mmol/L LAB HEMATOLOGY METHOD 02/23/2025 12:18 AM EDT [facility] Bicarbonate, Calculated, Venous 27(H) 22 - 26 mmol/L LAB HEMATOLOGY METHOD 02/23/2025 12:18 AM EDT [facility] Hematocrit, Whole Blood 28.9(L) 34.0 - 45.0 % LAB HEMATOLOGY METHOD 02/23/2025 12:18 AM EDT [facility] Sodium, Whole Blood 128(L) 136 - 145 mmol/L LAB HEMATOLOGY METHOD 02/23/2025 12:18 AM EDT [facility] Potassium, Whole Blood 4.7 3.6 - 4.9 mmol/L LAB HEMATOLOGY METHOD 02/23/2025 12:18 AM EDT [facility] Chloride, Whole Blood 93(L) 97 - 107 mmol/L LAB HEMATOLOGY METHOD 02/23/2025 12:18 AM EDT [facility] Glucose, Whole Blood 177(H) 74 - 99 mg/dL LAB HEMATOLOGY METHOD 02/23/2025 12:18 AM EDT [facility] Lactate, Venous, Whole Blood 1.7 0.5 - 2.2 mmol/L LAB HEMATOLOGY METHOD 02/23/2025 12:18 AM EDT [facility] Ionized Calcium, Whole Blood 4.4(L) 4.6 - 5.1 mg/dL LAB HEMATOLOGY METHOD 02/23/2025 12:18 AM EDT [facility] Blood Venous blood specimen / Unknown Venipuncture / Unknown 02/23/2025 12:05 AM EDT 02/23/2025 12:16 AM EDT Luda Ralph MD LAB BLOOD ORDERABLES Final R esult Performing Organization Address City/[facility] [address]/ZIP Co de Phone Number [facility] [address] [place] [address] * (ABNORMAL) Troponin T, High Sensitivity, 0 Hour Plasma, Reflex to 2 Hour (02/23/2025 12:05 AM EDT) Troponin T, High Sensitivity, 0 Hour 40(H) <14 ng/L 02/23/2025 12:44 AM EDT [facility] Blood Venous blood specimen / Unknown Venipuncture / Unknown 02/23/2025 12:05 AM EDT 02/23/2025 12:17 AM EDT Luda Ralph MD LAB BLOOD ORDERABLES Final R esult [facility] [address] [place] [address] * (ABNORMAL) Phosphorus, Plasma (02/23/2025 12:05 AM EDT) Phosphorus, Plasma 2.4(L) 2.5 - 4.5 mg/dL 02/23/2025 12:44 AM EDT [facility] Blood Venous blood specimen / Unknown Venipuncture / Unknown 02/23/2025 12:05 AM EDT 02/23/2025 12:17 AM EDT Bobby Parra MD LAB BLOOD ORDERABLES Final R esult Performing Organization Address [facility] [address]/ZIP Co de Phone Number [facility] [address] [place] [address] * (ABNORMAL) Magnesium, Plasma (02/23/2025 12:05 AM EDT) Magnesium, Plasma 2.5(H) 1.9 - 2.4 mg/dL 02/23/2025 12:44 AM EDT [facility] Blood Venous blood specimen / Unknown Venipuncture / Unknown 02/23/2025 12:05 AM EDT 02/23/2025 12:17 AM EDT Bobby Parra MD LAB BLOOD ORDERABLES Final R esult Performing Organization Address City/[facility] [address]/[facility] Co de Phone Number [facility] [address] [place] [address] * (ABNORMAL) Basic Metabolic Panel, Plasma (02/23/2025 12:05 AM EDT) Glucose, Plasma 180(H) 74 - 99 mg/dL 02/23/2025 12:44 AM EDT [facility] BUN, Plasma 42(H) 8 - 23 mg/dL 02/23/2025 12:44 AM EDT [facility] Creatinine, Plasma 2.26(H) 0.60 - 1.10 mg/dL 02/23/2025 12:44 AM EDT [facility] BUN/Creatinine Ratio 19 02/23/2025 12:44 AM EDT [facility] Sodium, Plasma 127(L) 136 - 145 mmol/L 02/23/2025 12:44 AM EDT [facility] Potassium, Plasma 4.9 3.6 - 4.9 mmol/L 02/23/2025 12:44 AM EDT [facility] Chloride, Plasma 91(L) 97 - 107 mmol/L 02/23/2025 12:44 AM EDT [facility] CO2, Plasma 23 22 - 29 mmol/L 02/23/2025 12:44 AM EDT [facility] Anion Gap 13 6 - 16 mmol/L 02/23/2025 12:44 AM EDT [facility] Total Calcium, Plasma 9.0 8.9 - 10.2 mg/dL 02/23/2025 12:44 AM EDT [facility] eGFRcr 23.5 mL/min/1.7 3m*2 02/23/2025 12:44 AM EDT [facility] Comment:Reported eGFRcr in m L/min/1.73m2 is based the CKD-EPI 2020 equation that does not use a race coefficient. Blood Venous blood specimen / Unknown Venipuncture / Unknown 02/23/2025 12:05 AM EDT 02/23/2025 12:17 AM EDT us Bobby Parra MD LAB BLOOD ORDERABLES Final R esult [facility] [address] [place] [address] * (ABNORMAL) POCT glucose meter (02/23/2025 12:04 [...] Comment 02/23/2025 12:06 AM EDT [facility] Accounts Payable Coordinator ID Daniela Mcbride 02/23/2025 12:06 AM EDT [facility] Device ID [id number] 02/23/2025 12:06 AM EDT [facility] Specimen Type POC Capillary 02/23/2025 12:06 AM EDT [facility] Blood Capillary blood specimen / Unknown 02/23/2025 12:04 AM EDT 02/23/2025 12:06 AM EDT Luda Ralph MD LAB POINT OF CARE TE ST DOCKED DEVICE UNSOLICITED RESULTS Final Result Performing Organization Address [facility] Co de Phone Number [facility] [address] [place] [address] * (ABNORMAL) Quantitative BAL/PAL/Bronch Wash Culture and Gram StainProtected Alveolar Lavage (02/23/2025 12:00 AM EDT) Culture [id number] CFU/mL Mixed upper respiratory jesus(A) 02/24/2025 12:09 PM EDT [facility] Comment:The organism value f or this result has been updated. These results have been appended to the previously preliminary verified report. Gram Stain Result Numerous Polymorphonuclear leukocytes(A) 02/24/2025 12:09 PM EDT [facility] Gram Stain Result Numerous Gram positive cocci in pairs(A) 02/24/2025 12:09 PM EDT [facility] Gram Stain Result Moderate Gram positive cocci in clusters(A) 02/24/2025 12:09 PM EDT [facility] Gram Stain Result Moderate Gram positive rods(A) 02/24/2025 12:09 PM EDT [facility] Protected Alveolar Lavage (Protected Alveolar Lavage) 02/23/2025 12:00 AM EDT 02/23/2025 1:17 AM EDT Luda Ralph MD LAB MICROBIOLOGY - GENERAL O RDERABLES Final Result Performing Organization Address City/[facility] [address]/ZIP Co de Phone Number [facility] [address] [place] [address] * ECG Adult (02/22/2025 11:57 PM EDT) EKG DIAGNOSIS CLASS Abnormal MUSE ECG Ventricular Rate 81 BPM MUSE ECG Atrial Rate 81 BPM MUSE ECG [place] Interval 204 ms MUSE ECG QRSD Interval 136 ms MUSE ECG QT Interval 428 ms MUSE ECG QTC Interval 497 ms MUSE ECG P [place] 58 degrees MUSE ECG R [place] -72 degrees MUSE ECG T Wave [place] 47 degrees MUSE ECG Diagnosis Normal sinus rhythm MUSE ECG Diagnosis Left axis deviation MUSE ECG Diagnosis Right bundle branch block MUSE ECG Diagnosis Low voltage chest leads MUSE ECG Diagnosis Abnormal ECG MUSE ECG Diagnosis Compared to last ECG MUSE ECG Diagnosis No significant change was found MUSE ECG Diagnosis Confirmed by Carson Multani ([id number]) on 02/23/2025 11:11:42 AM MUSE ECG 02/22/2025 11:5 7 PM EDT 02/23/2025 11:11 AM EDT us Luda Ralph MD ECG ORDERABLES Final Result Performing Organization Address City/[facility] [address]/ZIP Co de Phone Number M[facility] ECG * (ABNORMAL) Procalcitonin (02/22/2025 10:03 PM EDT) Procalcitonin, Plasma 0.21(H) <0.09 ng/mL 02/22/2025 10:48 PM EDT [facility] Blood Venous blood specimen / Unknown Venipuncture / Unknown 02/22/2025 10:03 PM EDT 02/22/2025 10:11 PM EDT Narrative [facility] - 02/22/2025 10:48 PM [...] predict 28 day mortality risk. Please consult [email or web address] for more information. Test performed at [facility], Core Laboratory. Luda Ralph MD LAB BLOOD ORDERABLES Final R esult [facility] [address] [place] [address] * (ABNORMAL) N-Terminal Probnp (02/22/2025 10:03 PM EDT) Pathologist [facility] N-Terminal, PROBNP, Plasma 1,542(H) 0 - 899 pg/mL 02/22/2025 10:[address] [facility] Blood Venous blood specimen / Unknown Venipuncture / Unknown 02/22/2025 10:03 PM EDT 02/22/2025 10:11 PM EDT Bobby Parra MD LAB BLOOD ORDERABLES Final R esult Performing Organization Address [facility] [address]/[place] [address] * (ABNORMAL) Multi Drug Resistance Test (02/22/2025 10:02 PM EDT) [facility] Culture Methicillin-Resist ant Staphylococcus aureus(AA) 02/24/2025 6:[address] [facility] Swab (Nares and Samantha Rectal) Non-blood Collection / Unknown 02/22/2025 10:02 PM EDT 02/22/2025 10:16 PM EDT Narrative [facility] - 02/24/2025 6:58 AM EDT This test was developed and its performance characteristics determined by the [facility]. Although the media is FDA-approved, it is not FDA-approved for all specimen types submitted. The FDA has determined that such clearance or approval is not necessary. This test is used for surveillance purposes. It should not be regarded as investigational or for research. The [facility] is certified under the Clinical Laboratory Improvement Amendments of 1988 (CLIA-88) as qualified to perform high complexity clinical laboratory testing. Bobby Parra MD LAB MICROBIOLOGY - GENERAL O RDERABLES Final Result Performing Organization Address City/[facility] [address]/[place] [address] * Sahara auris Surveillance by PCR (02/22/2025 10:02 PM EDT) Sahara auris PCR Result Not Detected Not Detected 02/24/2025 7:03 AM EDT [facility] Swab (Axilla and Groin) Non-blood Collection / Unknown 02/22/2025 10:02 PM EDT 02/22/2025 10:16 PM EDT Narrative [facility] - 02/24/2025 7:03 AM EDT This PCR assay was developed and its performance characteristics determined by [facility] as appropriate for clinical purposes. This assay has not been cleared or approved by the FDA, but is performed in a CLIA regulated laboratory that is qualified to perform high-complexity testing. Bobby Parra MD LAB MICROBIOLOGY - GENERAL O RDERABLES Final Result Performing Organization Address City/[facility] [address]/[facility] Co de Phone Number [facility] [address] [place] [address] * (ABNORMAL) Fentanyl Urine Confirm (02/22/2025 10:01 PM EDT) Fentanyl 1(H) <1 ng/mL 02/24/2025 9:18 AM EDT [facility] Norfentanyl 2(H) <2 ng/mL 02/24/2025 9:18 AM EDT [facility] Urine Urine specimen obtained by clean catch procedure / Unknown Non-blood Collection / Unknown 02/22/2025 10:01 PM EDT 02/22/2025 10:11 PM EDT Narrative [facility] - 02/24/2025 9:18 AM EDT Drug analysis is confirmed by LC-MS/MS (LC Tandem Mass Spectrometry) on Urine specimens. This test was developed and its performance characteristics determined by [facility]. It has not been cleared or approved by the FDA. The laboratory is regulated under CLIA as qualified to perform high-complexity testing. This test is used for clinical purposes. Testing is performed at the [facility], Special Chemistry Laboratory. us Luda Morton MD LAB URINE ORDERABLES Final Result Performing Organization Address City/[facility] [address]/ZIP Co de Phone Number [facility] [address] [place] [address] * SEND HECTOR MESSAGE (02/22/2025 10:01 PM EDT) Urine Urine specimen obtained by clean catch procedure / Unknown Non-blood Collection / Unknown 02/22/2025 10:01 PM EDT 02/22/2025 10:14 PM EDT Bobby Parra MD LAB URINE ORDERABLES Final R esult Performing Organization Address [facility] Co de Phone Number [facility] [address] [place] [address] * (ABNORMAL) Urine Culture (02/22/2025 10:01 PM EDT) Culture 100 CFU/mL Normal Urogenital Jesus(A) 02/24/2025 6:[address] [facility] Urine Urine specimen obtained by clean catch procedure / Unknown Non-blood Collection / Unknown 02/22/2025 10:01 PM EDT 02/22/2025 10:14 PM EDT Bobby Parra MD LAB MICROBIOLOGY - GENERAL O RDERABLES Final Result Performing Organization Address City/[facility] [address] [facility] Co de Phone Number [facility] [address] [place] [address] * Urinalysis Microscopic Examination (02/22/2025 10:01 PM EDT) Urine Urine specimen obtained by clean catch procedure / Unknown Non-blood Collection / Unknown 02/22/2025 10:01 PM EDT 02/22/2025 10:11 PM EDT Bobby Parra MD LAB URINE ORDERABLES Final R esult [facility] [address] [place] [address] * Urine Salmon Panel (02/22/2025 10:01 PM EDT) Extra Sent for Culture 02/23/2025 12:[address] [facility] Urine Urine specimen obtained by clean catch procedure / Unknown Non-blood Collection / Unknown 02/22/2025 10:01 PM EDT 02/22/2025 10:14 PM EDT us Bobby Parra MD LAB URINE ORDERABLES Final R esult [facility] [address] [place] [address] * (ABNORMAL) Urinalysis with reflex microscopic (Culture NOT Included) (02/22/2025 10:01 PM EDT) Color, Urine Red LAB URINALYSIS - AUTOMATED METHOD 02/22/2025 11:13 PM EDT [facility] Clarity, Urine Cloudy LAB URINALYSIS - AUTOMATED METHOD 02/22/2025 11:13 PM EDT [facility] Spec [place], Urine 1.010 1.005 - 1.030 LAB URINALYSIS - AUTOMATED METHOD 02/22/2025 11:13 PM EDT [facility] pH, Urine 6.5 5.0 - 8.0 LAB URINALYSIS - AUTOMATED METHOD 02/22/2025 11:13 PM EDT [facility] Protein, Urine >=300(A) Negative mg/dL LAB URINALYSIS - AUTOMATED METHOD 02/22/2025 11:13 PM EDT [facility] Glucose, Urine Negative Negative mg/dL LAB URINALYSIS - AUTOMATED METHOD 02/22/2025 11:13 PM EDT [facility] Ketones, Urine Negative Negative mg/dL LAB URINALYSIS - AUTOMATED METHOD 02/22/2025 11:13 PM EDT [facility] Blood, Urine Large(A) Negative LAB URINALYSIS - AUTOMATED METHOD 02/22/2025 11:13 PM EDT [facility] Bilirubin, Urine Small(A) Negative LAB URINALYSIS - AUTOMATED METHOD 02/22/2025 11:13 PM EDT [facility] Urobilinogen, Urine 0.2 0.2 to 1.0 mg/dL LAB URINALYSIS - AUTOMATED METHOD 02/22/2025 11:13 PM EDT [facility] Leukocytes, Urine Large(A) Negative LAB URINALYSIS - AUTOMATED METHOD 02/22/2025 11:13 PM EDT [facility] Nitrite, Urine Negative Negative LAB URINALYSIS - AUTOMATED METHOD 02/22/2025 11:13 PM EDT [facility] RBC, Urine >50(A) 0 to 3 /HPF LAB URINALYSIS - AUTOMATED METHOD 02/22/2025 11:13 PM EDT [facility] WBC, Urine >50(A) 0 to 5 /HPF LAB URINALYSIS - AUTOMATED METHOD 02/22/2025 11:13 PM EDT [facility] Squamous Epithelial Cells 0 - 2 0 to 5 /HPF LAB URINALYSIS - AUTOMATED METHOD 02/22/2025 11:13 PM EDT [facility] Hyaline Casts 0 - 2 0 to 5 /LPF LAB URINALYSIS - AUTOMATED METHOD 02/22/2025 11:13 PM EDT [facility] Bacteria, Urine Negative Negative LAB URINALYSIS - AUTOMATED METHOD 02/22/2025 11:13 PM EDT [facility] Urine Urine specimen obtained by clean catch procedure / Unknown Non-blood Collection / Unknown 02/22/2025 10:01 PM EDT 02/22/2025 10:11 PM EDT Narrative [facility] - 02/22/2025 11:13 PM EDT Urinalysis dipstick results may be inaccurate due to specimen color or an interfering substance in the specimen. Bobby Parra MD LAB URINE ORDERABLES Final R esult [facility] [address] [place] [address] * Drug abuse screen (02/22/2025 10:01 PM EDT) Amphetamine Screen Urine Negative Cutoff: 500 ng/mL 02/23/2025 12:22 AM EDT [facility] Benzodiazepines Screen Urine Negative Cutoff: 200 ng/mL 02/23/2025 12:22 AM EDT [facility] Cannabinoid Screen Urine Negative Cutoff: 50 ng/mL 02/23/2025 12:22 AM EDT [facility] Cocaine Screen Urine Negative Cutoff: 300 ng/mL 02/23/2025 12:22 AM EDT [facility] Barbiturate Screen Urine Negative Cutoff: 200 ng/mL 02/23/2025 12:22 AM EDT [facility] Opiate Screen Urine Negative Cutoff: 300 ng/mL 02/23/2025 12:22 AM EDT [facility] Methadone Screen Urine Negative Cutoff: 300 ng/mL 02/23/2025 12:22 AM EDT [facility] Buprenorphine Screen Urine Negative Cutoff: 10 ng/mL 02/23/2025 12:22 AM EDT [facility] Fentanyl Screen Urine Presumptive positive. Confirmation by LC-MS/MS to follow. Cutoff: 1 ng/mL 02/23/2025 12:22 AM EDT [facility] Oxycodone Screen Urine Negative Cutoff: 100 ng/mL 02/23/2025 12:22 AM EDT [facility] Urine Urine specimen obtained by clean catch procedure / Unknown Non-blood Collection / Unknown 02/22/2025 10:01 PM EDT 02/22/2025 10:11 PM EDT Luda Morton MD LAB URINE ORDERABLES Final Result [facility] [address] [place] [address] * (ABNORMAL) POCT glucose meter (02/22/2025 9:38 PM EDT) [facility] POCT Glucose 156(H) 74 - 99 mg/dL [...] 02/22/2025 9:40 PM EDT [facility] Accounts Payable Coordinator ID Shiloh Friedman 02/23/20 9:40 PM EDT [facility] Device ID [id number] 02/22/2025 9:40 PM EDT [facility] Specimen Type POC Capillary 02/22/2025 9:40 PM EDT [facility] Blood Capillary blood specimen / Unknown 02/22/2025 9:38 PM EDT 02/22/2025 9:40 PM EDT us Luda Ralph MD LAB POINT OF CARE TE ST DOCKED DEVICE UNSOLICITED RESULTS Final Result [facility] [address] [place] [address] * (ABNORMAL) POCT arterial blood gas gem (02/22/2025 9:05 PM EDT) pH, Arterial 7.45(H) 7.31 - 7.42 02/22/2025 9:06 PM EDT [facility] pCO2, Arterial 37 35 - 48 mm Hg 02/22/2025 9:06 PM EDT [facility] pO2, Arterial 86 >80 mm Hg 02/22/2025 9:06 PM EDT [facility] SO2, Arterial 98 94 - 98 % 02/22/2025 9:06 PM EDT [facility] FIO2 60.0 % 02/22/2025 9:06 PM EDT [facility] Base Excess, Arterial 1.7 -2 - 3 mmol/L 02/22/2025 9:06 PM EDT [facility] HCO3, Arterial 25.7 22 - 26 mmol/L 02/22/2025 9:06 PM EDT [facility] Total Hemoglobin, Arterial, Whole Blood 9.1(L) 11.2 - 15.7 g/dL 02/22/2025 9:06 PM EDT [facility] Hematocrit, Arterial 27.0(L) 34.0 - 45.0 % 02/22/2025 9:06 PM EDT [facility] Sodium, Arterial 125(L) 136 - 145 mmol/L 02/22/2025 9:06 PM EDT [facility] Potassium, Arterial 4.9 3.6 - 4.9 mmol/L 02/22/2025 9:06 PM EDT [facility] Comment:Hemolyzed, result ma y be falsely increased. Chloride, Whole Blood 95(L) 97 - 107 mmol/L 02/22/2025 9:06 PM EDT [facility] Glucose, Arterial 116(H) 74 - 99 mg/dL 02/22/2025 9:06 PM EDT [facility] Ionized Calcium, Arterial 4.8 4.6 - 5.1 mg/dL 02/22/2025 9:06 PM EDT [facility] Lactate, Arterial 0.8 0.5 - 1.6 mmol/L 02/22/2025 9:06 PM EDT [facility] Body Temperature 37.0 Celsius 02/22/2025 9:06 PM EDT [facility] pH, Temp Corrected, Arterial 7.45(H) 7.31 - 7.42 02/22/2025 9:06 PM EDT [facility] pCO2, Temp Corrected, Arterial 37 35 - 48 mm Hg 02/22/2025 9:06 PM EDT [facility] pO2, Temp Corrected, Arterial 86 >80 mm Hg 02/22/2025 9:06 PM EDT [facility] Accounts Payable Coordinator ID Slim Morton 02/22/2025 9:06 PM EDT [facility] Blood, Arterial Whole blood specimen / Unknown 02/22/2025 9:05 PM EDT 02/22/2025 9:06 PM EDT Luda Ralph MD LAB POINT OF CARE TE ST DOCKED DEVICE UNSOLICITED RESULTS Final Result Performing Organization Address City/[facility] [address]/ZIP Co de Phone Number [facility] [address] [place] [address] * Blood Culture (Aerobic/Anaerobet Set) (02/22/2025 8:55 PM EDT) [facility] Culture No growth at day 5 02/27/2025 10:01 PM EDT [facility] Blood Structure of right hand / Unknown Venipuncture / Unknown 02/22/2025 8:55 PM EDT 02/22/2025 9:29 PM EDT Narrative [facility] - 02/27/2025 10:01 PM EDT Low blood volume submitted, results may be compromised Luda Morton MD LAB MICROBIOLOGY - GENERAL ORDERABLES Final Result [facility] [facility] [address] [place] [address] * Ionized calcium, serum (02/22/2025 8:36 PM EDT) Pathologist [facility] Ionized Calcium, Serum 4.8 4.6 - 5.3 mg/dL LAB HEMATOLOGY METHOD 02/22/2025 9:42 PM EDT [facility] Blood Venous blood specimen / Unknown Venipuncture / Unknown 02/22/2025 8:36 PM EDT 02/22/2025 8:53 PM EDT us Bobby Parra MD LAB BLOOD ORDERABLES Final R esult [facility] [address] [place] [address] * (ABNORMAL) CBC W/O Differential (02/22/2025 8:36 PM EDT) Pathologist [facility] WBC Count 7.98 3.70 - 10.30 10*3/uL LAB HEMATOLOGY METHOD 02/22/2025 8:44 PM EDT [facility] RBC Count 3.52(L) 3.90 - 5.20 10*6/uL LAB HEMATOLOGY METHOD 02/22/2025 8:44 PM EDT [facility] HGB 9.2(L) 11.2 - 15.7 g/dL LAB HEMATOLOGY METHOD 02/22/2025 8:44 PM EDT [facility] HCT 28.5(L) 34.0 - 45.0 % LAB HEMATOLOGY METHOD 02/22/2025 8:44 PM EDT [facility] Platelet Count 329 155 - 369 10*3/uL LAB HEMATOLOGY METHOD 02/22/2025 8:44 PM EDT [facility] MCV 81 79 - 98 fL LAB HEMATOLOGY METHOD 02/22/2025 8:44 PM EDT [facility] MCH 26.1 26.0 - 32.0 pg LAB HEMATOLOGY METHOD 02/22/2025 8:44 PM EDT [facility] MCHC 32.3 30.7 - 35.5 g/dL LAB HEMATOLOGY METHOD 02/22/2025 8:44 PM EDT [facility] RDW 14.6(H) 11.5 - 14.5 % LAB HEMATOLOGY METHOD 02/22/2025 8:44 PM EDT [facility] MPV 9.5 8.8 - 12.5 fL LAB HEMATOLOGY METHOD 02/22/2025 8:44 PM EDT [facility] nRBC 0.0 <=0.0 per 100 WBCs LAB HEMATOLOGY METHOD 02/22/2025 8:44 PM EDT [facility] Blood Venous blood specimen / Unknown Venipuncture / Unknown 02/22/2025 8:36 PM EDT 02/22/2025 8:40 PM EDT us Bobby Parra MD LAB BLOOD ORDERABLES Final R esult [facility] [address] [place] [address] * (ABNORMAL) Blood gas, venous (02/22/2025 8:13 PM EDT) pH, Venous 7.33 7.32 - 7.43 LAB HEMATOLOGY METHOD 02/22/2025 8:17 PM EDT [facility] pCO2, Venous 49 37 - 52 mmHg LAB HEMATOLOGY METHOD 02/22/2025 8:17 PM EDT [facility] pO2, Venous 27 25 - 40 mmHg LAB HEMATOLOGY METHOD 02/22/2025 8:17 PM EDT [facility] SO2, Measured, Venous 49(L) 65 - 80 % LAB HEMATOLOGY METHOD 02/22/2025 8:17 PM EDT [facility] Base Excess, Venous -0.1 -2.0 - 3.0 mmol/L LAB HEMATOLOGY METHOD 02/22/2025 8:17 PM EDT [facility] Bicarbonate, Calculated, Venous 26 22 - 26 mmol/L LAB HEMATOLOGY METHOD 02/22/2025 8:17 PM EDT [facility] Hematocrit, Whole Blood 27.0(L) 34.0 - 45.0 % LAB HEMATOLOGY METHOD 02/22/2025 8:17 PM EDT [facility] Sodium, Whole Blood 128(L) 136 - 145 mmol/L LAB HEMATOLOGY METHOD 02/22/2025 8:17 PM EDT [facility] Potassium, Whole Blood 5.3(H) 3.6 - 4.9 mmol/L LAB HEMATOLOGY METHOD 02/22/2025 8:17 PM EDT [facility] Chloride, Whole Blood 96(L) 97 - 107 mmol/L LAB HEMATOLOGY METHOD 02/22/2025 8:17 PM EDT [facility] Glucose, Whole Blood 106(H) 74 - 99 mg/dL LAB HEMATOLOGY METHOD 02/22/2025 8:17 PM EDT [facility] Lactate, Venous, Whole Blood 1.0 0.5 - 2.2 mmol/L LAB HEMATOLOGY METHOD 02/22/2025 8:17 PM EDT [facility] Ionized Calcium, Whole Blood 4.3(L) 4.6 - 5.1 mg/dL LAB HEMATOLOGY METHOD 02/22/2025 8:17 PM EDT [facility] Blood Venous blood specimen / Unknown Venipuncture / Unknown 02/22/2025 8:13 PM EDT 02/22/2025 8:16 PM EDT us Luda Morton MD LAB BLOOD ORDERABLES Final Result Performing Organization Address City/[facility] [address]/ZIP Co de Phone Number [facility] [address] [place] [address] * EKG now - STAT (adult) (02/22/2025 8:10 PM EDT) EKG DIAGNOSIS CLASS Abnormal MUSE ECG Ventricular Rate 74 BPM MUSE ECG Atrial Rate 74 BPM MUSE ECG [place] Interval 200 ms MUSE ECG QRSD Interval 136 ms MUSE ECG QT Interval 434 ms MUSE ECG QTC Interval 481 ms MUSE ECG P [place] 59 degrees MUSE ECG R [place] -84 degrees MUSE ECG T Wave [place] 48 degrees MUSE ECG Diagnosis Normal sinus [...] 9.2(H) <5.7 % 02/23/2025 1:40 PM EDT [facility] Blood Venous blood specimen / Unknown Venipuncture / Unknown 02/22/2025 6:41 PM EDT 02/22/2025 6:47 PM EDT Narrative [facility] - 02/23/2025 1:40 PM EDT HA1C Interpretive Data: Diagnosis of Diabetes: Diabetic > or = 6.5% Pre-diabetic 5.7 to 6.4% Non-diabetic < or = 5.6% Glycemic Targets for Type I and Type II Diabetics: Non- Adults <7.0% Adults <6.0% Children and Adolescents <7.5% Source: [place] [employer]. Standards of medical care in diabetes,2017. Diabetes Care.2017:40 (suppl 1):S1-S135. Bobby Parra MD LAB BLOOD ORDERABLES Final R esult [facility] [address] [place] [address] * (ABNORMAL) BNP (02/22/2025 6:41 PM EDT) N-Terminal, PROBNP, Plasma 1,679(H) 0 - 899 pg/mL 02/22/2025 8:39 PM EDT [facility] Blood Venous blood specimen / Unknown Venipuncture / Unknown 02/22/2025 6:41 PM EDT 02/22/2025 6:47 PM EDT Luda Morton MD LAB [place] [address] * Free T4, Plasma (02/22/2025 6:41 PM EDT) Free T4, Plasma 1.3 0.8 - 1.7 ng/dL 02/22/2025 7:24 PM EDT [facility] Blood Venous blood specimen / Unknown Venipuncture / Unknown 02/22/2025 6:41 PM EDT 02/22/2025 6:47 PM EDT Luda Morton MD LAB BLOOD ORDERABLES Final Result Performing Organization Address City/[facility] [address]/[place] [address] * Thyroid Stimulating Hormone, Plasma (02/22/2025 6:41 PM EDT) Thyroid Stimulating Hormone, Plasma 1.03 0.40 - 4.20 uIU/mL 02/22/2025 7:24 PM EDT [facility] Blood Venous blood specimen / Unknown Venipuncture / Unknown 02/22/2025 6:41 PM EDT 02/22/2025 6:47 PM EDT Luda Morton MD LAB BLOOD ORDERABLES Final Result Performing Organization Address City/[facility] [address]/[place] [address] * Ethyl Alcohol Plasma (02/22/2025 6:41 PM EDT) Ethanol Plasma <10 <10 mg/dL 02/22/2025 8:13 PM EDT [facility] Blood Venous blood specimen / Unknown Venipuncture / Unknown 02/22/2025 6:41 PM EDT 02/22/2025 8:00 PM EDT Narrative [facility] - 02/22/2025 8:13 PM EDT Enzymatic Assay: Performed on [employer]. us Luda Morton MD LAB BLOOD ORDERABLES Final Result [facility] [address] [place] [address] * (ABNORMAL) CBC w/diff (02/22/2025 6:41 PM EDT) WBC Count 9.69 3.70 - 10.30 10*3/uL LAB HEMATOLOGY METHOD 02/22/2025 6:54 PM EDT [facility] RBC Count 3.62(L) 3.90 - 5.20 10*6/uL LAB HEMATOLOGY METHOD 02/22/2025 6:54 PM EDT [facility] HGB 9.7(L) 11.2 - 15.7 g/dL LAB HEMATOLOGY METHOD 02/22/2025 6:54 PM EDT [facility] HCT 29.8(L) 34.0 - 45.0 % LAB HEMATOLOGY METHOD 02/22/2025 6:54 PM EDT [facility] Platelet Count 306 155 - 369 10*3/uL LAB HEMATOLOGY METHOD 02/22/2025 6:54 PM EDT [facility] MCV 82 79 - 98 fL LAB HEMATOLOGY METHOD 02/22/2025 6:54 PM EDT [facility] MCH 26.8 26.0 - 32.0 pg LAB HEMATOLOGY METHOD 02/22/2025 6:54 PM EDT [facility] MCHC 32.6 30.7 - 35.5 g/dL LAB HEMATOLOGY METHOD 02/22/2025 6:54 PM EDT [facility] RDW 14.6(H) 11.5 - 14.5 % LAB HEMATOLOGY METHOD 02/22/2025 6:54 PM EDT [facility] MPV 9.4 8.8 - 12.5 fL LAB HEMATOLOGY METHOD 02/22/2025 6:54 PM EDT [facility] nRBC 0.0 <=0.0 per 100 WBCs LAB HEMATOLOGY METHOD 02/22/2025 6:54 PM EDT [facility] Differential Type Automated LAB HEMATOLOGY METHOD 02/22/2025 6:54 PM EDT [facility] Neutrophils % 69 % LAB HEMATOLOGY METHOD 02/22/2025 6:54 PM EDT [facility] Lymphocytes % 13 % LAB HEMATOLOGY METHOD 02/22/2025 6:54 PM EDT [facility] Monocytes % 13 % LAB HEMATOLOGY METHOD 02/22/2025 6:54 PM EDT [facility] Eosinophils % 4 % LAB HEMATOLOGY METHOD 02/22/2025 6:54 PM EDT [facility] Basophils % 0 % LAB HEMATOLOGY METHOD 02/22/2025 6:54 PM EDT [facility] Immature Granulocytes % 1 % LAB HEMATOLOGY METHOD 02/22/2025 6:54 PM EDT [facility] Neutrophils Absolute 6.66(H) 1.60 - 6.10 10*3/uL LAB HEMATOLOGY METHOD 02/22/2025 6:54 PM EDT [facility] Lymphocytes Absolute 1.29 1.20 - 3.90 10*3/uL LAB HEMATOLOGY METHOD 02/22/2025 6:54 PM EDT [facility] Monocytes Absolute 1.27(H) 0.30 - 0.90 10*3/uL LAB HEMATOLOGY METHOD 02/22/2025 6:54 PM EDT [facility] Eosinophils Absolute 0.38 0.00 - 0.50 10*3/uL LAB HEMATOLOGY METHOD 02/22/2025 6:54 PM EDT [facility] Basophils Absolute 0.03 0.00 - 0.10 10*3/uL LAB HEMATOLOGY METHOD 02/22/2025 6:54 PM EDT [facility] Immature Granulocytes Absolute 0.06 0.00 - 0.06 10*3/uL LAB HEMATOLOGY METHOD 02/22/2025 6:54 PM EDT [facility] Blood Venous blood specimen / Unknown Venipuncture / Unknown 02/22/2025 6:41 PM EDT 02/22/2025 6:47 PM EDT [facility] - 02/22/2025 6:54 PM EDT Therapeutic decision making should be based on absolute values, rather than percentages. us Luda Morton MD LAB BLOOD ORDERABLES Final Result [facility] [address] [place] [address] * (ABNORMAL) CMP (02/22/2025 6:41 PM EDT) Glucose, Plasma 144(H) 74 - 99 mg/dL 02/22/2025 7:24 PM EDT [facility] BUN, Plasma 42(H) 8 - 23 mg/dL 02/22/2025 7:24 PM EDT [facility] Creatinine, Plasma 2.39(H) 0.60 - 1.10 mg/dL 02/22/2025 7:24 PM EDT [facility] BUN/Creatinine Ratio 18 02/22/2025 7:24 PM EDT [facility] Sodium, Plasma 125(L) 136 - 145 mmol/L 02/22/2025 7:24 PM EDT [facility] Potassium, Plasma 4.6 3.6 - 4.9 mmol/L 02/22/2025 7:24 PM EDT [facility] Chloride, Plasma 89(L) 97 - 107 mmol/L 02/22/2025 7:24 PM EDT [facility] CO2, Plasma 26 22 - 29 mmol/L 02/22/2025 7:24 PM EDT [facility] Anion Gap 10 6 - 16 mmol/L 02/22/2025 7:24 PM EDT [facility] Total Calcium, Plasma 9.0 8.9 - 10.2 mg/dL 02/22/2025 7:24 PM EDT [facility] Total Protein 7.3 6.3 - 7.9 g/dL 02/22/2025 7:24 PM EDT [facility] Albumin, Plasma 3.6 3.5 - 5.2 g/dL 02/22/2025 7:24 PM EDT [facility] AST, Plasma 13 10 - 35 U/L 02/22/2025 7:24 PM EDT [facility] ALT, Plasma 19 10 - 35 U/L 02/22/2025 7:24 PM EDT [facility] Alkaline Phosphatase, Plasma 144(H) 46 - 142 U/L 02/22/2025 7:24 PM EDT [facility] Total Bilirubin, Plasma <0.2(L) 0.2 - 1.1 mg/dL 02/22/2025 7:24 PM EDT [facility] eGFRcr 22.0 mL/min/1.7 3m*2 02/22/2025 7:24 PM EDT [facility] Comment:Reported eGFRcr in m L/min/1.73m2 is based the CKD-EPI 2020 equation that does not use a race coefficient. Blood Venous blood specimen / Unknown Venipuncture / Unknown 02/22/2025 6:41 PM EDT 02/22/2025 6:47 PM EDT Luda Morton MD LAB BLOOD ORDERABLES Final Result [facility] [address] [place] [address] * (ABNORMAL) POCT venous blood gas gem (02/22/2025 6:37 PM EDT) pH, Venous 7.28(L) 7.32 - 7.43 02/22/2025 6:38 PM EDT [facility] pCO2, Venous 60(HH) 37 - 52 mm Hg 02/22/2025 6:38 PM EDT [facility] pO2, Venous 41(H) 25 - 40 mm Hg 02/22/2025 6:38 PM EDT [facility] SO2, Venous 72 65 - 80 % 02/22/2025 6:38 PM EDT [facility] Base Excess/Deficit, Venous 0.8 -2 - 3 mmol/L 02/22/2025 6:38 PM EDT [facility] HCO3, Venous 28.2(H) 22 - 26 mmol/L 02/22/2025 6:38 PM EDT [facility] Hemoglobin, Venous 9.2(L) 11.2 - 15.7 g/dL 02/22/2025 6:38 PM EDT [facility] Hematocrit, Venous 28.0(L) 34.0 - 45.0 % 02/22/2025 6:38 PM EDT [facility] Sodium, Venous 126(L) 136 - 145 mmol/L 02/22/2025 6:38 PM EDT [facility] Potassium, Venous 4.6 3.6 - 4.9 mmol/L 02/22/2025 6:38 PM EDT [facility] Comment:Hemolyzed, result ma y be falsely increased. POCT Chloride, Venous 94(L) 97 - 107 mmol/L 02/22/2025 6:38 PM EDT [facility] Glucose, Venous 139(H) 74 - 99 mg/dL 02/22/2025 6:38 PM EDT [facility] Ionized Calcium, Venous 4.9 4.6 - 5.1 mg/dL 02/22/2025 6:38 PM EDT [facility] Lactate, Venous 0.6 0.5 - 2.2 mmol/L 02/22/2025 6:38 PM EDT [facility] Body Temperature 37.0 Celsius 02/22/2025 6:38 PM EDT [facility] pH, Temp Corrected, Venous 7.28(L) 7.32 - 7.43 02/22/2025 6:38 PM EDT [facility] pCO2, Temp Corrected, Venous 60(HH) 37 - 52 mm Hg 02/22/2025 6:38 PM EDT [facility] pO2, Temp Corrected, Venous 41(H) 25 - 40 mm Hg 02/22/2025 6:38 PM EDT [facility] Accounts Payable Coordinator ID Joao Jackson 02/22/2025 6:38 PM EDT [facility] Blood, Venous Whole blood specimen / Unknown 02/22/2025 6:37 PM EDT 02/22/2025 6:38 PM EDT us Generic Provider Poct LAB POINT OF CARE TEST DOCKED DEVICE UNSOLICITED RESULTS Final Result [facility] [address] [place] [address] * (ABNORMAL) POCT glucose meter (02/22/2025 6:17 [...] 02/22/2025 6:19 PM EDT [facility] Accounts Payable Coordinator ID Tracy Vasques 02/22/2025 6:19 PM EDT [facility] Device ID [id number] 02/22/2025 6:19 PM EDT [facility] Specimen Type POC Capillary 02/22/2025 6:19 PM EDT [facility] Blood Capillary blood specimen / Unknown 02/22/2025 6:17 PM EDT 02/22/2025 6:19 PM EDT us Generic Provider Poct LAB POINT OF CARE TEST DOCKED DEVICE UNSOLICITED RESULTS Final Result [facility] [address] [place] [address] * INTUBATION (02/22/2025 6:13 PM EDT) Narrative [...] encounter Visit Diagnoses Diagnosis Sepsis (CMS/HCC)- Primary [place] coma scale total score 9-12, at arrival [...] - Provider: Gerry Ambriz)[id number] (Given - Provider: Gyale Light RN)2045 (Given - Provider: Gerry Ambriz) [...] documented as of this encounter Care Teams Aerobics Instructor Relationship Specialty Start Date End Date Vignesh Pickens MD [address] [place] [address] PCP - General 12/31/24 Cayla Erazo APRN, [place] [phone] [facility] [address] [place] [address] Nurse Practitioner Urology 12/20/24 documented as of this encounter
--- OUTSIDE RECORDS SUMMARY | 2025-02-28 08:15 | XMS_ITS | Encounter Summary ---
Author Organization [facility] Address [address] [place] [address] Care Team Providers Care Training Consultant Name Role Phone Cayla Erazo APRN, DNP Unavailable [phone] Vignesh Pickens MD Primary Care Provider [phone] Reason for Visit * Auth/Cert (Routine) Specialty Diagnoses / Procedures Referred By Contac t Referred To Contact Diagnoses Sepsis (CMS/HCC) UTI, CKD, Hyponatremia, COPD exacerbation Bobby Parra MD [address] [place] [phone] Phone: tel: fax: PAV A Inpatient [address] [place] [phone] Referral ID Status Reason Start Date Expiration Date Visits Re quested Visits Authorized [id number] 1 1 Encounter Details Date Type Department Care Team (Latest Contact Info) Description 02/28/2025 8:15 AM EDT Office Visit [facility] [address] [place] [address] Bert Lim, DMD [address] [place] [phone] Caries (Primary Dx) Social History Tobacco Use [...] drink first t rodríguez in the morning (EYE-CHEMICAL PROCESSING TECHNICIAN) to steady your nerves or to get rid of a hangover? 0 08/15/2024 CAGE Questionnaire Score 0 024 Utilities Answer Date Recorded In the past 12 months has th [employer], gas, oil, or water company threatened to [...] to prescribing narcotic medication. Bert Lim DMD [facility] phys ther PGY-1 Pager #: [phone] Cosigned by Froylan Summers DMD at 03/01/2025 8:09 AM EDT Associated attestation - Froylan Summers DMD - 03/01/2025 8:09 AM EDT I was present during all critical and madden portions of the procedure(s) and immediately available [facility] services the entire duration. See resident note for details. documented in this encounter Plan of Treatment Upcoming Encounters Date Type Department Care Team (Late st Contact Info) Description 04/08/2025 9:20 AM EDT Office Visit [facility] Urology [address] [place] [address] Cayla Erazo, TALENT ACQUISITION PROJECT MANAGER, DNP [address] [place] [address] 05/16/2025 8:00 AM EDT Office Visit [facility] [place] [address] [facility], [address] [place] [address] Karly Gracia MD [address] [place] [address] 06/07/2025 1:00 PM EDT Office Visit [facility] [address] [place] [address] Tom Iraheta MD [address] [place] [address] documented as of this encounter [...] as of this encounter Care Teams Training Consultant Relationship Specialty Start Date End Date Vignesh Pickens MD [address] [place] [address] PCP - General 12/31/24 Cayla Erazo APRN, DNP [address] [place] [address] Nurse Practitioner Urology 12/20/24 documented as of this encounter
--- OUTSIDE RECORDS SUMMARY | 2025-03-07 10:00 | XMS_ITS | Encounter Summary ---
Author Organization [facility] Address [address] [place] [address] Care Team Providers Care Hand Edger Name Role Phone Cayla Erazo APRN, DNP Unavailable [phone] Vignesh Pickens MD Primary Care Provider [phone] Reason for Visit * Other Medical (Routine) - Closed Specialty Diagnoses / Procedures Referred By Contelvie t Referred To Contact Urology Diagnoses Gross hematuria Procedures Cysto- Urology Cayla Erazo APRN, DNP [address] [address] Phone: tel: fax: Referral ID Status Reason Start Date Expiration Date Visits Re quested Visits Authorized [id number] Closed 12/25/2024 06/26/2026 1 1 Encounter Details Date Type Department Care Team (Late st Contact Info) Description 03/07/2025 10:00 AM EDT [facility] [address] [place] [address] Doug Chapman MD [id number] [place] [address] Gross hematuria Social History Tobacco [...] any time in the past 12 m [facility], were you homeless or living in [...] first t rodríguez in the morning (EYE-SENIOR JAVA SOFTWARE DEVELOPER) to steady your nerves or to get rid of a hangover? 0 08/15/2024 CAGE Questionnaire Score 0 024 Utilities Answer Date Recorded In the past 12 months has th e [employer], gas, oil, or water [employer] threatened to shut off services in your [...] [place] MD - 03/07/2025 10:00 AM EDT [facility] Urology Clinic Note CC: hematuria HPI: Eileen Tovar is a 64 y.o. F who was initially evaluated in Sep 2024 for diagnosis ofbilateral hydronephrosis in Jul 2024 thought to be due to severe constipation. She was treated for UTI while inpatient at [facility] and had improvement in renal function and hydronephrosis with indwellingFoley catheter that was removed prior to discharge to [facility] in [place]. She is a limited historian, presented in a wheelchair, and is accompanied by a staff member from [facility] without further information provided. She presents [...] Vitals: 03/07/25 1009 BP: 108/63 Pulse: 79 Clarity Developer present during entire exam General: Pleasant, alert, [...] Essential (primary) hypertension CAD (coronary artery disease), [place] coronary artery Controlled diabetes mellitus type II without complication Iron deficiency anemia Second hand smoke exposure Acute kidney injury superimposed on CKD ([facility]/H[facility]) Arthritis Cellulitis of left knee Chronic respiratory failure COPD (chronic obstructive pulmonary disease) ([facility]) Dehydration with hyponatremia Diabetes mellitus ([facility]) Hyperlipidemia Restrictive lung disease Stroke ([facility]) Dave coma scale total score 13-15, unspecified coma timing Pyelonephritis Kidney infection Acquired absence of leg above knee Stage 3 chronic kidney disease ([facility]) Type 2 diabetes mellitus with diabetic chronic kidney disease ([facility]) Peripheral vascular disease, unspecified ([facility]) Prosthetic joint infection ([facility]) Unspecified hydronephrosis Vitamin D deficiency, unspecified Disorder of kidney and ureter, unspecified Unspecified right bundle-branch block Unspecified abdominal pain Tubulo-interstitial nephritis, not specified as acute or chronic Tinea unguium Secondary hyperparathyroidism of renal origin ([facility]) Pain in right toe(s) Pain in left toe(s) Edema, unspecified Presence of left artificial knee joint Other specified disorders of the skin and subcutaneous tissue Other nonspecific abnormal finding of lung field Weakness Other disorders of phosphorus metabolism Other acute postprocedural pain Old myocardial infarction Nontoxic single thyroid nodule Morbid (severe) obesity due to excess calories ([facility]) Mixed simple and mucopurulent chronic bronchitis ([facility]) Methicillin resistant Staphylococcus aureus infection Hypertensive heart and chronic kidney disease with heart failure and stage 1 through stage 4 chronic kidney disease, or unspecified chronic kidney disease ([facility]) Hyperkalemia Hydronephrosis with renal and ureteral calculous obstruction Hemiplegia and hemiparesis following cerebral infarction affecting left non- dominant side ([facility]) Fecal impaction ([facility]) Dysuria Dyspnea, unspecified Deep venous thrombosis of lower extremity Constipation, unspecified Chronic diastolic (congestive) heart failure ([facility]/HCC) Calculus of kidney Atrial premature depolarization [...] occlusion or stenosis of left carotid arteries ([facility]) Anemia in chronic kidney disease [...] BREAST SURGERY N/A Breast Surgery Reconstruction from [facility] BREAST SURGERY N/A Breast Surgery from [facility] CHOLECYSTECTOMY N/A Cholecystotomy from [facility] KIDNEY SURGERY N/A Kidney Surgery from [facility] KNEE SURGERY N/A Knee Surgery from [facility] MASTECTOMY N/A Breast Surgery Mastectomy from [facility] SHOULDER SURGERY Right Shoulder Surgery Right from [facility] [4] Family History Problem Relation Name Age [...] Description 04/08/2025 9:20 AM EDT [facility] [address] [place] [address] Cayla Erazo APRN, DNP [address] [address] 05/16/2025 8:00 AM EDT Office Visit [facility] [place] [address] [facility] [facility], [address] [place] [address] Karly Gracia MD [address] [place] [address] 06/07/2025 1:00 PM EDT Office Visit [facility] [address] [facility] [address] [place] [address] Tom Iraheta MD [address] [place] [address] documented as of this encounter [...] as of this encounter Care Teams Hand Edger Relationship Specialty Start Date End Date Vignesh Pickens MD [address] [place] [address] PCP - General 12/31/24 Cayla Erazo APRN, DNP [address] [address] Nurse Practitioner Urology 12/20/24 documented as of this encounter
--- OUTSIDE RECORDS SUMMARY | 2025-04-05 06:57 | XMS_ITS | Clinical Summary ---
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) 21153699 (SNOMED CT) 10/25 Active 10/25 [facility] Benign hypertension Presence of left artificial knee joint Z96.652 (ICD-10-CM ) 10/25 Active 10/25 [facility] Presence of left artificial knee joint Hx of MRSA infection 715421781 (SNOMED CT) 10/25 Active 10/25 Helen Salazar H/O: infectious disease Hx of malignant neoplasm of breast 038269931 (SNOMED CT) 03/02 Resolved 03/02 [facility]azar History of malignant neoplasm of breast Cellulitis of left leg 013987818 (SNOMED CT) 03/02 Resolved 03/02 [facility]azar Cellulitis of lower limb associate director regulatory affairs (current) use of suppressive antibiotics Z79.2 (ICD-10-CM ) 01/14 Inactive 01/14 [facility] (current) use of antibiotics Anemia in chronic diseases(docu ment disease) D63.8 (ICD-10-CM ) 01/14 Active 01/14 [facility]azar Anemia in other chronic diseases classified elsewhere Chronic respiratory failure with hypoxia 81854505 (SNOMED CT) 01/14 Active 01/14 Helen Salazar Acute respiratory failure COPD 39050014 (SNOMED CT) 01/14 Active 01/14 Helen [facility]azar Chronic obstructive pulmonary disease DM Type II E11.9 (ICD-10-CM ) 01/14 Inactive 01/14 Helen Salazar Type 2 diabetes mellitus without complications Benign Essential Hypertension 38902449 (SNOMED CT) 01/14 Removed 01/14 Helen Salazar Benign hypertension Acquired absence of left knee joint 096875845 (SNOMED CT) 03/02 Resolved 03/02 Helen Salazar History of operative procedure on knee Obesity due to excess calories E66.09 (ICD-10-CM ) 03/02 Resolved 03/02 Helen Salazar Other obesity due to excess calories prison (current) use of anticoagulant s Z79.01 (ICD-10-CM ) 03/02 Resolved 03/02 Helen Salazar associate director regulatory affairs (current) use of anticoagulants Staph epi infection B95.7 (ICD-10-CM ) 03/02 Resolved 03/02 Helen Salazar Other staphylococcus as the cause of diseases classified elsewhere Diarrhea 68970542 (SNOMED CT) 09/28 Resolved 09/28 Helen Salazar Diarrhea Staph hominis infection B95.7 (ICD-10-CM ) 09/28 Resolved 09/28 Helen Salazar Other staphylococcus as the cause of diseases classified elsewhere Staph hominis infection B95.7 (ICD-10-CM ) 09/28 Removed 09/28 Arie Dougherty MD Other staphylococcus as the cause of diseases classified elsewhere Diarrhea 98759420 (SNOMED CT) 09/28 Removed 09/28 Arie Dougherty MD Diarrhea Acquired absence of left knee joint 929533525 (SNOMED CT) 03/02 Removed 03/02 [facility] History of operative procedure on knee Cellulitis of left leg 861868077 (SNOMED CT) 03/02 Removed 03/02 [facility]azar Cellulitis of lower limb Knee, left, subsequent encounter, infection/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 T84.54xD (ICD-10-CM ) 03/02 Active 03/02 [facility]azar Infection and inflammatory reaction due to internal left knee prosthesis, subsequent encounter Staph epi infection B95.7 (ICD-10-CM ) 03/02 Removed 03/02 Helen Salazar Other staphylococcus as the cause of diseases classified elsewhere prison (current) use of anticoagulant s Z79.01 (ICD-10-CM ) 03/02 Removed 03/02 [facility] prison (current) use of anticoagulants Obesity due to excess calories E66.09 (ICD-10-CM ) 03/02 Removed 03/02 Helen Salazar Other obesity due to excess calories Hx of malignant neoplasm of breast 322054192 (SNOMED CT) 03/02 Removed 03/02 Helen Salazar History of malignant neoplasm of breast Medications Medication Instructions Start Date Stop Date Generic Name NDC Provider DOXYCYCLINE MONOHYDRATE 100 MG CAPS Take 1 capsule by mouth twice a day 10/25 doxycycline monohydrate 55395882105 Arie Dougherty MD ceftriaxone recon soln 2GM IV Q24hrs [facility] 02/18 ceftriaxone recon soln Temi Norris Cubicin RF 800mg IV Q48hrs [facility] 02/18 daptomycin Temi Norris DOXYCYCLINE MONOHYDRATE 100 MG CAPS Take 1 capsule by mouth twice a day 02/03 doxycycline monohydrate 39878289284 Arie Dominguez RF 800mg IV Q48hrs [facility] 02/18 daptomycin Nubia Ervin ceftriaxone recon soln 2GM IV Q24hrs [facility] 02/18 ceftriaxone recon soln Nubiadeidre Ervin IPRATROPIUM-ALBUT MIKE 0.5-2.5 (3) MG/3ML SOLN 3 ml by mouth PRN 01/27 ipratropium-albut mike 11152826108 Nubia Minor Gaviscon 95-358 mg/15 mL suspension by mouth four times a day 30 mL aluminum hydrox-magnesium carb 83272435177 Nubia Minor IPRATROPIUM-ALBUT MIKE 0.5-2.5 (3) MG/3ML SOLN using nebulizer every six hours PRN ipratropium-albut mike 65674625467 Nubia Minor BASAGLAR KWIKPEN 100 UNIT/ML SOPN subcutaneously once a day insulin glargine 04317047346 Nubia Minor MUCUS RELIEF D 60-600 MG NB09Q-DBA by mouth twice a day pseudoephedrine-g uaifenesin 71264710365 Nubia Minor VITAMIN B-12 100 MCG TABS by mouth once a day cyanocobalamin (vitamin b-12) 15186098360 Nubia Minor PERCOCET 5-325 MG TABS 1-2 tablet every four to six hours oxycodone-acetami nophen 16085701588 Nubia Minor BIOTIN 1000 MCG TABS by mouth once a day biotin 34773004367 Nubia Minor GABAPENTIN 800 MG TABS by mouth four times a day as needed gabapentin 67987900453 Nubia Minor ATORVASTATIN CALCIUM 40 MG TABS by mouth every morning Hold while on daptomycin atorvastatin 00257472886 Nubia Minor FERROUS SULFATE 325 (65 Fe) MG TABS by mouth once a day ferrous sulfate 91438143101 Nubia Minor VENLAFAXINE HCL 75 MG TABS by mouth twice a day venlafaxine 52307156197 Nubia Minor CITRACAL MAXIMUM 315-6.25 MG-MCG TABS by mouth twice a day calcium citrate-vitamin d3 01383159908 Nubia Poncho JANUMET XR 50-1000 MG ZN27R-RTD by mouth twice a day sitagliptin phos-metformin 26473279993 Nubia Minor GNP HYDROCORTISONE/AL OE 1 % CREA Apply to skin twice a day as needed hydrocortisone acetate 79548504595 Nubia Minor MS CONTIN 15 MG CR-TABS by mouth twice a day morphine 50344793359 Nubia Minor OMEPRAZOLE 20 MG TBEC 2 tablet by mouth once a day omeprazole 54992514893 Nubia Minor DOXYCYCLINE HYCLATE 100 MG TABS Take 1 tablet by mouth twice a day 01/11 doxycycline hyclate 29912657626 Nubia Minor CARVEDILOL 12.5 MG TABS by mouth twice a day carvedilol 43108844476 Nubia Minor PROMETHAZINE HCL 25 MG TABS by mouth three times a day as needed promethazine 54298721279 Nubia Minor TIZANIDINE HCL 4 MG TABS by mouth three times a day as needed tizanidine 64623960361 Nubia Minor LACTULOSE 10 GM/15ML SOLN 30 ml by mouth as needed lactulose 51300760903 Nubia Minor COLACE 100 MG CAPS by mouth twice a day as needed docusate sodium 93887258669 Nubia Minor XARELTO TABLET 15 mg 15 mg Take 1 by mouth once a day XARELTO TABLET 15 mg 15 mg Nubia Minor ANASTROZOLE 1 MG TABS by mouth once a day anastrozole 25828011268 Nubia Minor ACETAMINOPHEN 500 MG TABS by mouth every six hours PRN acetaminophen 96940086532 Nubia Minor LOPERAMIDE HCL 2 MG CAPS by mouth once a day PRN loperamide 19514601155 Nubia Minor ASCORBIC ACID 500 MG TABS by mouth 0.5 tab am and 0.5 tab pm ascorbic acid (vitamin c) 30426134676 Nubia Minor BACLOFEN 10 MG TABS by mouth three times a day baclofen 91438019994 Nubia Minor BREO ELLIPTA 100-25 MCG/ACT AEPB every morning fluticasone furoate-vilantero l 96031785181 Nubia Minor BUMETANIDE 2 MG TABS by mouth twice a day bumetanide 67365827325 Nubia Minor CALCIUM 600 1500 (600 Ca) MG TABS by mouth twice a day calcium carbonate 57665144101 Nubia Minor D3 HIGH POTENCY 10 MCG (400 UNIT) TABS by mouth 2.5 units am and 2.5 units pm cholecalciferol (vitamin d3) 72768529352 Nubia Minor PLAVIX 75 MG TABS by mouth every morning clopidogrel 84664215744 Nubia Minor VITAMIN B-12 1000 MCG TABS by mouth every morning cyanocobalamin (vitamin b-12) 69624163233 Nubia Minor FLONASE ALLERGY RELIEF 50 MCG/ACT SUSP intranasally every morning fluticasone propionate 83930511394 Nubia Minor FOSAMAX 70 MG TABS by mouth once a week alendronate 93428606912 Nubia Minor GLIPIZIDE ER 2.5 MG OL20O-SNA by mouth every morning 0.5 tab glipizide 14558505328 Nubia Minor LANTUS SOLOSTAR 100 UNIT/ML SOPN 8 unit subcutaneously every night insulin glargine 18017249096 Nubia Minor IPRATROPIUM-ALBUT MIKE 0.5-2.5 (3) MG/3ML SOLN 3 ml by mouth PRN 01/27 ipratropium-albut mike 83706014096 Nubia Minor JARDIANCE 10 MG TABS by mouth every morning empagliflozin 65854839650 Nubia Minor MAGNESIUM OXIDE 400 MG TABS by mouth twice a day magnesium oxide 02251713530 Nubia Minor METFORMIN HCL 1000 MG TABS by mouth twice a day metformin 97641545873 Nubia Minor MULTI-VITAMIN HP/MINERALS CAPS by mouth once a day multivitamin,tx-m inerals 18127114277 Nubia Minor ONDANSETRON HCL 4 MG TABS by mouth twice a day PRN ondansetron hcl 92778042442 Nubia Minor PANTOPRAZOLE SODIUM 20 MG TBEC by mouth once a day pantoprazole 37782128005 Nubia Minor PREGABALIN 50 MG CAPS by mouth three times a day pregabalin 93838965183 Nubia Isaac SENNA 8.6 MG TABS by mouth 2 tabs PRN sennosides 26535941231 Nubia Isaac SPIRONOLACTONE 50 MG TABS by mouth once a day spironolactone 02600556311 Nubia Isaac TRAZODONE HCL 150 MG TABS by mouth once a day 2 tabs trazodone 63310044366 Nubia Isaac VALSARTAN 80 MG TABS by mouth twice a day valsartan 57203859472 Nubia Isaac VENLAFAXINE HCL ER 150 MG QZ91O-OQM by mouth every morning venlafaxine 01115343420 Nubia Isaac VANCOMYCIN HCL SOLR 1gm IV q 12 x 6wks [facility] [phone] 10/05 VANCOMYCIN HCL SOLR 96765461368 Libby Cabello JIMI MS CONTIN 15 MG CR-TABS by mouth twice daily 01/11 MORPHINE SULFATE 37117257634 Arie Dougherty MD PERCOCET 5-325 MG TABS 1-2 tabs, every four to six hours, do not exceed 4000mg of acetaminophen per day 01/11 OXYCODONE-ACETAMI NOPHEN 49677112117 Arie Dougherty MD [facility] IRON 325 (65 Fe) MG TABS by mouth daily 01/11 FERROUS SULFATE 08938383333 Arie Dougherty MD COLACE 100 MG CAPS by mouth twice daily as needed 02/19 DOCUSATE SODIUM 20442324321 Arie Dougherty MD DOXYCYCLINE HYCLATE 100 MG TABS take 1 tab po BID 02/19 DOXYCYCLINE HYCLATE 07772061953 Arie Dougherty MD XARELTO TABLET Take one by mouth once daily. 01/11 RIVAROXABAN TABS 43366168337 Arie Dougherty MD COUMADIN 5 MG ORAL TABLET by mouth, AC dinner 10/17 WARFARIN SODIUM 59521959127 Arie Dougherty MD VANCOMYCIN HCL SOLR 1gm IV q 12 x 6wks [facility] [phone] 08/22 VANCOMYCIN HCL SOLR 03230233708 [facility] VANCOMYCIN HCL SOLR 750 mg IV q 12 x 6wks [facility] [phone] 03/31 VANCOMYCIN HCL SOLR 55696111915 [facility] VANCOMYCIN HCL SOLR 750 mg IV q 12 x 6wks [facility] [phone] 08/22 VANCOMYCIN HCL SOLR 36120854623 Daily Lewis RN VENLAFAXINE HCL 75 MG TABS by mouth twice daily 01/11 VENLAFAXINE HCL 07376007171 Kulwant P PROMETHAZINE HCL 25 MG TABS by mouth three times a day as needed 01/11 PROMETHAZINE HCL 00107463007 Kulwant P B-12 100 MCG TABS by mouth daily 09/29 CYANOCOBALAMIN 81320797338 Kulwant P JANUMET XR 50-1000 MG LC31M-RCM by mouth twice daily 01/11 SITAGLIPTIN-METFO RMIN HCL 64142692575 Kulwant P TIZANIDINE HCL 4 MG TABS by mouth three times a day as needed 01/11 TIZANIDINE HCL 55360705745 Kulwant P GABAPENTIN 800 MG TABS by mouth four times a day as needed 01/11 GABAPENTIN 37308145115 Kulwant P CARVEDILOL 12.5 MG TABS by mouth twice daily 01/11 CARVEDILOL 59214530834 Kulwant P ANASTROZOLE 1 MG TABS by mouth daily 01/11 ANASTROZOLE 40058081951 Kulwant P CITRACAL MAXIMUM 315-6.25 MG-MCG TABS by mouth twice daily 01/11 CALCIUM CITRATE-VITAMIN D 32139682816 Kulwant P [facility] OMEPRAZOLE 20 MG TBEC 2 tabs by mouth once daily 01/11 OMEPRAZOLE 40622671260 Kulwant P BIOTIN 1000 MCG TABS by mouth daily 01/11 BIOTIN 29475528136 Kulwant P ATORVASTATIN CALCIUM 40 MG TABS by mouth at bedtime 01/11 ATORVASTATIN CALCIUM 87548061368 Kulwant P COUMADIN 5 MG ORAL TABLET by mouth, AC dinner 05/19 WARFARIN SODIUM 81362371792 Kulwant P LACTULOSE SOLN 30mL by mouth as needed 02/19 LACTULOSE SOLN 20633364032 Kulwant P HYDROCORTISONE ACETATE 1 % CREA apply topically twice a day as needed 10/25 HYDROCORTISONE ACETATE 96390214460 Kulwant P MS CONTIN 15 MG CR-TABS by mouth twice daily 11/20 MORPHINE SULFATE 19855897760 Kulwant P [facility] IRON 325 (65 Fe) MG TABS by mouth daily 11/20 FERROUS SULFATE 68259124575 Kulwant P COLACE 100 MG CAPS by mouth twice daily as needed 02/19 DOCUSATE SODIUM 56814929275 Kulwant P PERCOCET 5-325 MG TABS 1-2 tabs, every four to six hours, do not exceed 4000mg of acetaminophen per day 11/20 OXYCODONE-ACETAMI NOPHEN 07991158544 Kulwant P VANCOMYCIN HCL SOLR 1gm IV q 12 x 6wks [facility] [phone] (d) [phone] 08/22 VANCOMYCIN HCL SOLR 72807098495 [facility] Medications Administered No information available. Allergies, [...] or Plasma Office Visit: rm #8 DIET HOME AIDE yes Dietary management education, guidance, and counseling [...] Oral Antibiotic CPT-ca Continue IV antibiotics 2022 CPT-31118 CMP [id number] CBC with Differential 2022 CPT-80665 C- reactive protein [id number], [id number] CPK CPT-J7030 IV Fluids CPT-sl STAT Labs CPT-sl STAT Labs CPT-sl STAT Labs CPT-51368 C- reactive protein CPT-33776 Sedimentation Rate (ESR) 201 02/20/04 CPT-99441 Vancomycin Trough CPT-60829 CMP [id number] CBC with Differential 2015 CPT-23612 C- reactive protein CPT-90112 Sedimentation Rate (ESR) 201 01/31/26 CPT-ca Continue IV antibiotics 2015 CPT-wpc Weekly PICC Line Care 09/28 CPT-05802 CMP [id number] CBC with Differential 2015 CPT-50996 Vancomycin Trough CPT-48673 C- reactive protein CPT-05591 Sedimentation Rate (ESR) 201 01/31/07 CPT-cdpcr C-Diff PCR CPT-isi New IV antibiotic CPT-92076 PICC Line Insertion CPT-07099 [facility] [id number] CBC with Differential 2015 CPT-88492 C- reactive protein CPT-05790 Sedimentation Rate (ESR) 201 01/30/30 CPT-DC Discontinue IV antibiotics 2 CPT-PICREM PICC Removal CPT-ca Continue IV antibiotics 2015 CPT-78305 CMP [id number] CBC with Differential 2015 CPT-23705 C- reactive protein CPT-78002 Sedimentation Rate (ESR) 201 01/27/01 CPT-10123 Vancomycin Trough CPT-ca Continue IV antibiotics 2015 CPT-55723 CMP [id number] CBC with Differential 2015 CPT-22793 C- reactive protein CPT-84850 Sedimentation Rate (ESR) 201 01/27/20 CPT-03378 Vancomycin Trough CPT-ca Continue IV antibiotics 2015 [...]
--- OUTSIDE RECORDS SUMMARY | 2025-04-05 06:58 | XMS_ITS | Encounter Summary ---
Author Organization [facility] Address [address] [place] [address] Care Team Providers Care Entry Level Sales Consultant Name Role Phone Cayla Erazo APRN, DNP Unavailable [phone] Vignesh Pickens MD Primary Care Provider [phone] Encounter Details Date Type Department Care Team (Late st Contact Info) Description 03/27/2025 Telephone [facility] [address], [address] [place] [address] Doug Chapman MD [address] [place] [address] Social History Tobacco Use Types [...] in the past 12 m [facility], were you homeless or living in a [...] first t rodríguez in the morning (EYE-INFORMATION SYSTEMS SECURITY ANALYST) to steady your nerves or to [...] Concern/Question Reason for Call: LIZANDRO López from [facility] calling to let you know that patient is being admitted with UTI after failed treatment They did a CT scan in ER and it showed bilat hydronephrosis with thickening of urinary bladder/ with retroperitoneal adenopathy underlying neoplasm not excluded. Recommend cysto. Best contact number: Other: [phone] ext [phone] Optimal time of day to [...] will receive notification of the communication/outcome via ITao. documented in this encounter Plan of Treatment Upcoming Encounters Date Type Department Care Team (Late st Contact Info) Description 04/08/2025 9:20 AM EDT [facility] Visit [facility] [address] [place] [address] Cayla Erazo, LIZANDRO, DNP [address] [place] [address] 05/16/2025 8:00 AM EDT Office Visit [facility] [place] [address] [facility], [address] [place] [address] Karly Gracia MD [address] [place] [address] 06/07/2025 1:00 PM EDT Office Visit [facility] [address] [place] [address] Tom Iraheta MD [address] [place] [address] documented as of this encounter [...] of this encounter Care Teams Entry Level Sales Consultant Relationship Specialty Start Date End Date Vignesh Pickens MD [address] [place] [address] PCP - General 12/31/24 Cayla Erazo APRN, DNP [address] [facility] [address] [place] [address] Nurse Practitioner Urology 12/20/24 documented as of this encounter
--- OUTSIDE RECORDS SUMMARY | 2025-04-05 06:58 | XMS_ITS | Referral Summary ---
Author Organization [employer] ([place], [place], [place], [place]) Address [address] [place] [address] Care Team Providers Care Decal Cutter Name Role Phone [facility], Provider Not In The System [...] A1C 11.7 % 11/25/2023 5:31 PM EDT [facility] Comment: Hemoglobin A1C levels are related to mean glucose during the preceding 2-3 months. Less than 7% demonstrates glycemic control in diabetic patients. Hemoglobin AlC % Suggested Diagnosis > or = 6.5 Diabetic 5.7 - 6.4 Prediabetic <5.7 Non-diabetic eAVG Glucose 289.09 mg/dL 11/25/2023 5:31 PM EDT [facility] Blood Venipuncture / Unknown 11/25/2023 11:24 AM EDT 11/25/2023 1:46 PM EDT Radha Ram MD LAB BLOOD ORDERABLES Fi nal Result [facility] [address] [place] [address], [facility] [phone] from Last 3 Months or Most Recently Relevant to Health Maintenance Insurance MEDICARE PART A B MEDICAID OF [place] Advance Directives For more information, please contact: [phone] * Full Code (Latest Code Status on [...] Sister First Alternate Healthcare Decision-Maker Care Teams Decal Cutter Relationship Specialty Start Date End Date [facility], Provider Not In The System, [place] [address] PCP - General 10/05/23
--- OUTSIDE RECORDS SUMMARY | 2025-04-05 06:58 | XMS_ITS | Clinical Summary ---
Author Organization [employer] ([place], [place], [place], [place]) Address [address] [place] [address] Care Team Providers Care Logistician Name Role Phone [facility], Provider Not In The System MD [...] Do you speak a language other than Chinese at ho me? No 12/09/2023 Do you [...] A1C 11.7 % 11/25/2023 5:31 PM EDT [facility] Comment: Hemoglobin A1C levels are related to mean glucose during the preceding 2-3 months. Less than 7% demonstrates glycemic control in diabetic patients. Hemoglobin AlC % Suggested Diagnosis > or = 6.5 Diabetic 5.7 - 6.4 Prediabetic <5.7 Non-diabetic eAVG Glucose 289.09 mg/dL 11/25/2023 5:31 PM EDT [facility] Blood Venipuncture / Unknown 11/25/2023 11:24 AM EDT 11/25/2023 1:46 PM EDT us Radha Ram MD LAB BLOOD ORDERABLES Fi nal Result [facility] [address] [phone] from Last 3 Months or Most Recently Relevant to Health Maintenance Insurance [facility] [place] [id number] MEDICARE PART A B MEDICAID [place] Advance Directives For more information, please contact: [phone] * Full Code (Latest Code Status on [...] Name Relationship Healthcare Agent Relationshi p Communication [place] Sister First Alternate Healthcare Decision-Maker Care Teams Logistician Relationship Specialty Start Date End Date [facility], Provider Not In The System, [place] [address] PCP - General 10/05/23
--- OUTSIDE RECORDS SUMMARY | 2025-04-05 06:58 | XMS_ITS | Clinical Summary ---
Author Organization [facility] [place] Address [address] [place] [address] Phone Care Team Providers Care Hide Selector Name Role Phone Foreign Spangler MD, Andrei Corcoran Primary Care Provid er Allergies No known [...] [place] A [place] [id number] Care Teams Hide Selector Relationship Specialty Start Date End Date Andrei Carrasquillo Sr., MD [address] [place] [address] PCP - General Transmitter Engineer 03/17/16
--- OUTSIDE RECORDS SUMMARY | 2025-04-05 06:58 | XMS_ITS | Encounter Summary ---
Author Organization [facility] Address [address] [place] [address] Care Team Providers Care Telephone Answering Service Operator Name Role Phone Cayla Erazo APRN, DNP Unavailable [phone] Vignesh Pickens MD Primary Care Provider [phone] Encounter Details Date Type Department Care Team (Late st Contact Info) Description 04/04/2025 Telephone [facility] [address] [place] [address] Doug Chapman MD [address] [place] [address] Social History Tobacco Use Types [...] in the past 12 m [facility], were you homeless or living [...] drink first t rodríguez in the morning (EYE-LAWN SERVICE SUPERVISOR) to steady your nerves or to [...] encounter Miscellaneous Notes * Telephone Encounter - Sharon Hopper - 04/04/2025 4:44 PM EDT Records and images are now in chart. * Telephone Encounter - Sharon Hopper - 04/04/2025 3:31 PM EDT Contacted [facility] for records and images. [phone]. Spoke with Libby in [place]. [place] in radiology. Pt has appt Tuesday04/08/25. documented in this encounter Plan of Treatment Upcoming Encounters Date Type Department Care Team (Late st Contact Info) Description 04/08/2025 9:20 AM EDT [facility] [address] [place] [address] Cayla Erazo, EDITOR CONTINUITY AND SCRIPT, DNP [address] [place] [address] 05/16/2025 8:00 AM EDT Office Visit [facility] [place] [address] [facility] [facility] [place] [address] [place] [address] Karly Gracia MD [address] [place] [address] 06/07/2025 1:00 PM EDT Office Visit [facility] [address] [place] [address] Tom Iraheta MD [address] [place] [address] documented as of this encounter Visit Diagnoses [...] documented as of this encounter Care Teams Telephone Answering Service Operator Relationship Specialty Start Date End Date Vignesh Pickens MD [address] [place] [address] PCP - General 12/31/24 Cayla Erazo APRN, DNP [address] [facility] [address] [place] [address] Nurse Practitioner Urology 12/20/24 documented as of this encounter
--- OUTSIDE RECORDS SUMMARY | 2025-04-05 06:58 | XMS_ITS | Encounter Summary ---
Author Organization [facility] Address [address] [place] [address] Care Team Providers Care Configuration Engineer Name Role Phone Daniel Barba MD Primary Care Provider [phone] Judy Huff WATER CONTROL SUPERVISOR Unavailable Unavailabl e Cayla Erazo APRN, DNP Unavailable [phone] Vignesh Pickens MD Primary Care Provider + [phone] Encounter Details Date Type Department Care Team (Late Contact Info) Description 08/11/2022 Orders Only External Location [address] [place] [address] Provider, External Social History Tobacco Use Types [...] Description 04/08/2025 9:20 AM EDT Office Visit [facility] [address] [place] [address] Cayla Erazo APRN, [place]EDERICK [address] [place] [address] 05/16/2025 8:00 AM EDT Office Visit [facility] [address] [facility], [address] [place] [address] Karly Gracia MD [address] [place] [address] 06/07/2025 1:00 PM EDT Office Visit [facility] [address] [place] [address] Tom Iraheta MD [address] [place] [address] documented as of this encounter [...] documented as of this encounter Care Teams Configuration Engineer Relationship Specialty Start Date End Date Daniel Barba MD [address] [place] [address] PCP - General 01/02/21 12/30/24 Vignesh Pickens MD [address] [place] [address] PCP - General 12/31/24 Judy Huff LPN [facility] TCM Nurse 08/24/24 08/24/24 Cayla Erazo APRN, DNP [address] [address] Nurse Practitioner Urology 12/20/24 documented as of this encounter
--- OUTSIDE RECORDS SUMMARY | 2025-04-05 06:58 | XMS_ITS | Encounter Summary ---
Author Organization [facility] Address [address] [place] [address] Care Team Providers Care Truck Driver Name Role Phone Cayla Erazo APRN, DNP Unavailable [phone] Vignesh Pickens MD Primary Care Provider [phone] Encounter Details Date Type Department Care Team [...] first t rodríguez in the morning (EYE-BARREL FILLER HEAD) to steady your nerves or to get [...] Description 04/08/2025 9:20 AM EDT Office Visit [facility] [address] [place] [address] Cayla Erazo, CUSTOM BOOKBINDER, DNP [address] [place] [address] 05/16/2025 8:00 AM EDT Office Visit [facility] [place] [address] [facility], [address] [place] [address] Karly Gracia MD [address] [place] [address] 06/07/2025 1:00 PM EDT Office Visit [facility] [address] [facility] [address] [place] [address] Tom Iraheta MD [address] [place] [address] documented as of this encounter [...] documented as of this encounter Care Teams Truck Driver Relationship Specialty Start Date End Date Vignesh Pickens MD [address] [place] [address] PCP - General 12/31/24 Cayla Erazo APRN, FREDERICK [address] [place] [address] Nurse Practitioner Urology 12/20/24 documented as of this encounter
--- OUTSIDE RECORDS SUMMARY | 2025-04-05 06:58 | XMS_ITS | Encounter Summary ---
Author Organization [facility] Address [address] [place] [address] Care Team Providers Care Low Pressure Firer Name Role Phone Castro Cayla Webster APRN, DNP Unavailable [phone] Vignesh Pickens MD Primary Care Provider [phone] Encounter Details Date Type Department Care Team (Late st Contact Info) Description 03/13/2025 Orders Only External Location [address] [place] [address] Kentrell Padilla APRN [address] [id number] Social History Tobacco Use Types Packs/Day Years [...] drink first t rodríguez in the morning (EYE-CYBER SECURITY ANALYST) to steady your nerves or [...] Office Visit [facility] [address] [place] [address] Cayla Erazo, FORMULA CHECKER, DNP [address] [place] [address] 05/16/2025 8:00 AM EDT Office Visit [facility] [place] [facility] [address] [facility], [address] [place] [address] Karly Gracia MD [address] [place] [address] 06/07/2025 1:00 PM EDT Office Visit [facility] [address] [place] [address] Tom Iraheta MD [address] [place] [address] documented as of this encounter Procedures Procedure Name Priority Date/Time Associated Diagnosis Comments CT OUTSIDE IMAGES 03/13/2025 12:21 PM EDT documented in this encounter Results * CT OUTSIDE IMAGES (03/13/2025 12:21 PM EDT) Anatomical Region Laterality Modality Computed Tomogra phy 03/13/2025 12:2 1 PM EDT Kentrell Padilla FORMULA CHECKER IMG CT PROCEDURES Final Re sult documented in this encounter Visit Diagnoses Not [...] documented as of this encounter Care Teams Low Pressure Firer Relationship Specialty Start Date End Date Vignesh Pickens MD [address] [place] [address] PCP - General 12/31/24 Cayla Erazo APRN, FREDERICK [address] [facility] [address] [place] [address] Nurse Practitioner Urology 12/20/24 documented as of this encounter
--- OUTSIDE RECORDS SUMMARY | 2025-04-05 06:58 | XMS_ITS | Encounter Summary ---
Author Organization [facility] Address [address] [place] [address] Care Team Providers Care Agriculture Consultant Name Role Phone Cayla Erazo APRN, DNP Unavailable [phone] Vignesh Pickens MD Primary Care Provider [phone] Encounter Details Date Type Department Care Team (Late st Contact Info) Description 03/27/2025 Orders Only External Location [address] [place] [address] Henrik Betts PA [address] [place] [address] Social History Tobacco Use Types Packs/Day Years [...] drink first t rodríguez in the morning (EYE-PRESCHOOL ASSOCIATE TEACHER) to steady your nerves or to [...] Description 04/08/2025 9:20 AM EDT Office Visit [place] [facility] [address] [place] [address] Cayla Erazo, PEDIATRIC RN, DNP [address] [place] [address] 05/16/2025 8:00 AM EDT Office Visit [facility] [place] [address] [facility], [address] [place] [address] Karly Gracia MD [address] [place] [address] 06/07/2025 1:00 PM EDT Office Visit [facility] [address] [place] [address] Tom Iraheta MD [address] [place] [address] documented as of this encounter Procedures Procedure Name Priority Date/Time Associated Diagnosis Comments XR OUTSIDE IMAGES 03/27/2025 12:41 PM EDT documented in this encounter Results * XR OUTSIDE IMAGES (03/27/2025 12:41 PM EDT) Anatomical Region Laterality Modality Radiographic Alysa ging 03/27/2025 12:4 1 PM EDT Henrik AG IMG XR PROCEDURES Final Result documented in [...] documented as of this encounter Care Teams Agriculture Consultant Relationship Specialty Start Date End Date Vignesh Pickens MD [address] [place] [address] PCP - General 12/31/24 Cayla Erazo APRN, FREDERICK [address] [facility] [address] [place] [address] Nurse Practitioner Urology 12/20/24 documented as of this encounter
--- OUTSIDE RECORDS SUMMARY | 2025-04-05 06:58 | XMS_ITS | Encounter Summary ---
Author Organization [facility] Address [address] [place] [address] Care Team Providers Care Film Projector Operator Name Role Phone Castro Cayla Webster APRN, DNP Unavailable Vignesh Pickens MD Primary Care Provider [phone] Encounter Details Date Type Department Care Team (Late st Contact Info) Description 03/13/2025 Orders Only External Location [address] [place] [address] Kentrell Padilla APRN [address] [id number] Social History Tobacco Use Types Packs/Day Years [...] drink first t rodríguez in the morning (EYE-BAG BUNDLER) to steady your nerves or to get [...] Upcoming Encounters Date Type Department Care Team ([facility] st Contact Info) Description 04/08/2025 9:20 AM EDT Office Visit [facility] [address] [place] [address] Cayla Erazo, ELECTRICAL TEST ENGINEER, DNP [address] [place] [address] 05/16/2025 8:00 AM EDT Office Visit [facility] [place] [facility] [address] [facility], [address] [place] [address] Karly Gracia MD [address] [place] [address] 06/07/2025 1:00 PM EDT Office Visit [facility] [address] [place] [address] Tom Iraheta MD [address] [place] [address] documented as of this encounter Procedures Procedure Name Priority Date/Time Associated Diagnosis Comments XR OUTSIDE IMAGES 03/13/2025 12:23 PM EDT documented in this encounter Results * XR OUTSIDE IMAGES (03/13/2025 12:23 PM EDT) Anatomical Region Laterality Modality Radiographic Alysa ging 03/13/2025 12:2 3 PM EDT Kentrell Padilla ELECTRICAL TEST ENGINEER IMG XR PROCEDURES Final Re sult documented in this [...] documented as of this encounter Care Teams Film Projector Operator Relationship Specialty Start Date End Date Vignesh Pickens MD [address] [place] [address] PCP - General 12/31/24 Cayla Erazo APRN, FREDERICK [address] [facility] [address] [place] [address] Nurse Practitioner Urology 12/20/24 documented as of this encounter
--- OUTSIDE RECORDS SUMMARY | 2025-04-05 06:58 | XMS_ITS | Encounter Summary ---
Author Organization [facility] Address [address] [place] [address] Care Team Providers Care Plant Ecologist Name Role Phone Daniel Barba MD Primary Care Provider [phone] Judy Huff ORTHOPEDIC MECHANIC Unavailable Unavailabl Cayla Louie APRN, FREDERICK Unavailable [phone] Vignesh Pickens MD Primary Care Provider + [phone] Encounter Details Date Type Department Care Team (Late st Contact Info) Description 07/28/2022 Orders Only External Location [address] [place] [address] Gregg Morgan MD [address] [place] [address] Social History Tobacco Use Types [...] Office Visit [facility] [address] [place] [address] Cayla Erazo APRN, DNP [address] [place] [address] 05/16/2025 8:00 AM EDT Office Visit [facility] [place] [address] [facility], [address] [place] [address] Karly Gracia MD [address] [place] [address] 06/07/2025 1:00 PM EDT Office Visit [facility] [address] [place] [address] Tom Iraheta MD [address] [place] [address] documented as of this encounter [...] documented as of this encounter Care Teams Plant Ecologist Relationship Specialty Start Date End Date Daniel Barba MD [address] [place] [address] PCP - General 01/02/21 12/30/24 Vignesh Pickens MD [address] [place] [address] PCP - General 12/31/24 Judy Huff, JHONNY [facility] TCM Nurse 08/24/24 08/24/24 Cayla Erazo, LIZANDRO, FREDERICK [address] [place] [address] Nurse Practitioner Urology 12/20/24 documented as of this encounter
--- OUTSIDE RECORDS SUMMARY | 2025-04-05 06:58 | XMS_ITS | Clinical Summary ---
Author Organization [facility] Address [address] [place] [address] Care Team Providers Care Restaurant Manager Name Role Phone Cayla Erazo APRN, DNP Unavailable [phone] Vignesh Pickens MD Primary Care Provider [phone] Allergies Active Allergy Reactions Criticality Noted Date [...] without esophagitis 03/28/2017 CAD (coronary artery disease), [place] coronary a rtery 03/28/2017 Controlled diabetes [...] Encounters Date Type Department Care Team Description 04/04/2025 Telephone [facility] [address] [place] [address] Doug Chapman MD 03/27/2025 Orders Only External Location [address] [place] [address] Henrik Betts PA 03/27/2025 Orders Only External Location [address] [place] [address] Henrik Betts PA 03/27/2025 Orders Only External Location [address] [place] [address] Henrik Betts PA 03/27/2025 Orders Only External Location [address] [place] [address] Henrik Betts PA 03/27/2025 Telephone [facility] [address] [place] [address] Doug Chapman MD 03/13/2025 Orders Only External Location [address] [place] [phone] Kentrell Padilla, FIRST AID INSTRUCTOR 03/13/2025 Orders Only External Location [address] [place] [phone] Kentrell Padilla, FIRST AID INSTRUCTOR 03/07/2025 10:00 AM EDT Office Visit [facility] [address] [place] [phone] Doug Chapman MD Gross hematuria 03/07/2025 Travel 03/04/2025 Orders Only External Location [address] [place] [phone] Provider, External 03/04/2025 Orders Only External Location [address] [place] [phone] Provider, External 03/04/2025 Results Follow-Up [facility] Medicine Virtual Dept. [address] [place] [address] Madonna Singleton MD 03/01/2025 Telephone [facility] [address] [phone] Surgeon Nohemy, 02/28/2025 8:15 AM EDT Office Visit [facility] [address] [address] Bert Lim DMD Caries (Primary Dx) 02/28/2025 Travel 02/27/2025 Travel 02/24/2025 Travel 02/22/2025 6:13 PM EDT - 03/02/2025 11:04 AM EDT Hospital Encounter [facility] [address] [place] [phone] Daniel Gordillo MD Salahuddin, Nawal, MD Powers, Michael F, MD Pasha, Sara N, MD Sagheer, Iqra, MD Acute respiratory failure with hypoxia and hypercapnia (Primary Dx); [place] coma scale total score 9-12, at arrival to emergency department; Acute cystitis without hematuria; Acute respiratory failure with hypercapnia; COPD exacerbation (CMS/HCC); Acute kidney injury superimposed on CKD (CMS/[facility]); Chronic kidney disease, stage 3a (CMS/[facility]); Hyponatremia; Acute encephalopathy; Sepsis with encephalopathy without septic shock, due to unspecified organism (CMS/HCC); Chronic diastolic (congestive) heart failure (CMS/[facility]); 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 Discharge Disposition: Halfway Facility 02/22/2025 Travel 02/22/2025 Orders Only External Location [address] [place] [phone] Jordan Carl MD 02/22/2025 Orders Only External Location [address] [place] [phone] Jordan Carl MD 02/22/2025 Orders Only External Location [address] [place] [phone] Jordan Carl MD 02/22/2025 Orders Only External Location [address] [place] [phone] Jordan Carl MD 01/31/2025 9:48 AM EDT Anesthesia Event [facility] [address] Nj Sears MD 01/31/2025 8:55 AM EDT - 01/31/2025 10:10 AM EDT Surgery [facility] [address] [place] [address] Ceci Mitchell MD URETEROSCOPY,CYSTOSCO PY, RETROGRADE PYELOGRAM, BILATERAL STENT PLACEMENT [70384 (CPT )] 01/31/2025 8:03 AM EDT - 01/31/2025 1:39 PM EDT Hospital Encounter [facility] [address] [place] [address] Ceci Mitchell MD Urinary retention (Primary Dx); Gross hematuria Discharge Disposition: Home or Self Care 01/31/2025 Travel 01/24/2025 2:00 PM EDT [facility] [address] [place] [address] 01/24/2025 Travel 01/23/2025 Telephone [facility] [address] [place] [address] Ceci Mitchell MD 01/17/2025 Telephone [facility] [address] [place] [address] Ceci Mitchell MD 01/16/2025 Telephone [facility] [address] [place] [address] Ceci Mitchell MD 01/03/2025 2:15 PM EDT - 01/03/2025 11:59 PM EDT Hospital Encounter [facility] 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 0 08/15/2024 CAGE Questionnaire Score 0 024 Utilities Answer Date Recorded In the past 12 months has e [employer], gas, oil, or water company threatened to [...] Description 04/08/2025 9:20 AM EDT Office Visit [facility] [address] [place] [address] Cayla Erazo, FIRST AID INSTRUCTOR, DNP [address] [place] [address] 05/16/2025 8:00 AM EDT Office Visit [facility] [place] [address] [facility], [address] [place] [address] Karly Gracia MD [address] [place] [address] 06/07/2025 1:00 PM EDT Office Visit [facility] [address] [place] [address] Tom Iraheta MD [address] [place] [address] Health Maintenance Due Date Last Done Comments Dental Oral Exam 1959 Dental Prophylaxis 1959 Dental X-Ray: Bitewings 1959 Dental X-Ray: Full Mouth 1959 [place]-Bone Density Scan 1959 UK-Medicare Annual Wellness (AWV) 1959 [facility]-Infant/Child/Adol SDOH Screenings [...] - Risk 60-74 years 1-dose series) 2019 [id number] Vaccine (3 - Pfizer risk series) 10/28/2020 [...] this topic Medical Devices Implanted Type Area Diesel Power Shovel Operator Device Identifier Shelf Expiration Date Model / Serial / Lot Stent Ureteral Tria Firm Monofilament 7f/24cm - [id number] Implanted:Qty: 1 on 01/31/2025 by Ceci Mitchell MD at [facility] Right: Kidney [id number] 06/14/2027 [id number] / / [id number] Stent Ureteral Tria Firm Monofilament 7f/24cm - [id number] Implanted:Qty: 1 on 01/31/2025 by Ceci Mitchell MD at [facility] Left: Kidney [employer]-[id number] 49 07/02/2027 [id number] / / [id number] Procedures Procedure Name Priority Date/Time Associated Diagnosis Comments XR OUTSIDE IMAGES 03/27/2025 12: [address] OUTSIDE IMAGES 03/27/2025 12: [address] OUTSIDE IMAGES 03/27/2025 12: [address] OUTSIDE IMAGES 03/27/2025 12: 35 PM EDT XR OUTSIDE IMAGES 03/13/2025 12: [address] OUTSIDE IMAGES 03/13/2025 12: [address] OUTSIDE IMAGES 03/04/2025 7:[address] OUTSIDE IMAGES 03/04/2025 6:0 8 AM EDT POCT GLUCOSE METER UNSOLICITED RESULTS Routine 03/02/2025 [...] EDT EXTUBATION Routine 02/24/2025 9:49 AM EDT CO CRITICAL CARE, E/M 30-74 MINUTES Routine 02/24/2025 7:08 AM EDT Acute respiratory failure with hypoxia and hypercapnia Acute kidney injury superimposed on CKD ([facility]) Chronic kidney disease, stage 3a ([facility]) Hyponatremia Acute encephalopathy Sepsis with encephalopathy without septic shock, due to unspecified organism ([facility]) Chronic diastolic (congestive) heart failure ([facility]) POCT GLUCOSE METER UNSOLICITED RESULTS [...] AND TREAT Routine 02/23/2025 10:25 AM EDT CO CRITICAL CARE, E/M 30-74 MINUTES Routine 02/23/2025 9:10 AM EDT Acute respiratory failure with hypoxia and hypercapnia Acute kidney injury superimposed on CKD ([facility]) Chronic kidney disease, stage 3a ([facility]) Hyponatremia Acute encephalopathy Sepsis with encephalopathy without septic shock, due to unspecified organism ([facility]) VANCOMYCIN, RANDOM, PLASMA Routine 02/23/2025 8:34 [...] ENDOTRACHEAL AIRWAY Routine 01/31/2025 9:58 AM EDT CO CYSTO/URETERO/PYELOSC ,BX &/OR FULG LESN 01/31/2025 9:32 [...] Recently Relevant to Health Maintenance Results * XR OUTSIDE IMAGES (03/27/2025 12:41 PM EDT) Only the most recent of3 resultswithin the time period is included. Anatomical Region Laterality Modality Radiographic Alysa ging 03/27/2025 12:4 1 PM EDT us [employer]rik [employer] IMG XR PROCEDURES Final Result * CT OUTSIDE IMAGES (03/27/2025 12:37 PM EDT) Only the most recent of9 resultswithin the time period is included. Anatomical Region Laterality Modality Computed Tomogra phy 03/27/2025 12:3 7 PM EDT us Henrik AG IMG CT PROCEDURES Final Result * (ABNORMAL) POCT glucose meter (03/02/2025 8:13 AM EDT) Only the most recent of35 resultswithin the time period is included. POCT Glucose 188(H) 74 - 99 mg/dL 03/02/2025 8:14 AM EDT [facility] Comment:Accuracy of a glucos e result [...] 03/02/2025 8:14 AM EDT [facility] Drawstring Knotter ID Stefanie Frances 025 8:14 AM EDT HEALTHCARE LAB Device ID [id number] 03/02/2025 8:14 AM EDT HEALTHCARE LAB Specimen Type POC Capillary 03/02/2025 8:14 AM EDT HEALTHCARE LAB Blood Capillary blood specimen / Unknown 03/02/2025 8:13 AM EDT 03/02/2025 8:14 AM EDT us Madonna Singleton MD LAB POINT OF CARE TE ST DOCKED DEVICE UNSOLICITED RESULTS Final Result Performing Organization Address City/[facility]/ZIP Co de Phone Number [facility] [address] [place] [address] * SEND HECTOR MESSAGE (03/01/2025 4:15 PM EDT) Only the most recent of2 resultswithin the time period is included. Urine Urine specimen obtained by clean catch procedure / Unknown Non-blood Collection / Unknown 03/01/2025 4:15 PM EDT 03/01/2025 4:26 PM EDT us Madonna Singleton MD LAB URINE ORDERABLES Final Resul t Performing Organization Address City/[facility] [[email or web address]] de Phone Number [facility] [address] [place] [address] * Urine Salmon Panel (03/01/2025 4:15 PM EDT) Only the most recent of2 resultswithin the time period is included. Extra Sent for Culture 03/01/2025 6:01 PM EDT [facility] Urine Urine specimen obtained by clean catch procedure / Unknown Non-blood Collection / Unknown 03/01/2025 4:15 PM EDT 03/01/2025 4:26 PM EDT us Madonna Singleton MD LAB URINE ORDERABLES Final Resul t Performing Organization Address City/[facility] Co de Phone Number [facility] [address] [place] [address] * Urinalysis Microscopic Examination (03/01/2025 4:15 PM EDT) Only the most recent of2 resultswithin the time period is included. Urine Urine specimen obtained by clean catch procedure / Unknown Non-blood Collection / Unknown 03/01/2025 4:15 PM EDT 03/01/2025 4:26 PM EDT us Madonna Singleton MD LAB URINE ORDERABLES Final Resul t [facility] [address] [place] [address] * (ABNORMAL) Urinalysis with reflex microscopic (Culture NOT Included) (03/01/2025 4:15 PM EDT) Only the most recent of2 resultswithin the time period is included. Color, Urine Yellow LAB URINALYSIS - AUTOMATED METHOD 03/01/2025 4:34 PM EDT [facility] Clarity, Urine Cloudy LAB URINALYSIS - AUTOMATED METHOD 03/01/2025 4:34 PM EDT [facility] Spec [place], Urine 1.008 1.005 - 1.030 LAB URINALYSIS - AUTOMATED METHOD 03/01/2025 4:34 PM EDT [facility] pH, Urine 6.5 5.0 - 8.0 LAB URINALYSIS - AUTOMATED METHOD 03/01/2025 4:34 PM EDT [facility] Protein, Urine 30(A) Negative mg/dL LAB URINALYSIS - AUTOMATED METHOD 03/01/2025 4:34 PM EDT [facility] Glucose, Urine Negative Negative mg/dL LAB URINALYSIS - AUTOMATED METHOD 03/01/2025 4:34 PM EDT [facility] Ketones, Urine Negative Negative mg/dL LAB URINALYSIS - AUTOMATED METHOD 03/01/2025 4:34 PM EDT [facility] Blood, Urine Large(A) Negative LAB URINALYSIS - AUTOMATED METHOD 03/01/2025 4:34 PM EDT [facility] Bilirubin, Urine Negative Negative LAB URINALYSIS - AUTOMATED METHOD 03/01/2025 4:34 PM EDT [facility] Urobilinogen, Urine 0.2 0.2 to 1.0 mg/dL LAB URINALYSIS - AUTOMATED METHOD 03/01/2025 4:34 PM EDT [facility] Leukocytes, Urine Large(A) Negative LAB URINALYSIS - AUTOMATED METHOD 03/01/2025 4:34 PM EDT [facility] Nitrite, Urine Negative Negative LAB URINALYSIS - AUTOMATED METHOD 03/01/2025 4:34 PM EDT [facility] RBC, Urine >50(A) 0 to 3 /HPF LAB URINALYSIS - AUTOMATED METHOD 03/01/2025 4:34 PM EDT [facility] WBC, Urine >50(A) 0 to 5 /HPF LAB URINALYSIS - AUTOMATED METHOD 03/01/2025 4:34 PM EDT [facility] Squamous Epithelial Cells 3 - 5 0 to 5 /HPF LAB URINALYSIS - AUTOMATED METHOD 03/01/2025 4:34 PM EDT [facility] Hyaline Casts 0 - 2 0 to 5 /LPF LAB URINALYSIS - AUTOMATED METHOD 03/01/2025 4:34 PM EDT [facility] Bacteria, Urine Negative Negative LAB URINALYSIS - AUTOMATED METHOD 03/01/2025 4:34 PM EDT [facility] Urine Urine specimen obtained by clean catch procedure / Unknown Non-blood Collection / Unknown 03/01/2025 4:15 PM EDT 03/01/2025 4:26 PM EDT Madonna Mani [facility] LAB URINE ORDERABLES Final Resul t [facility] [address] [place] [address] * (ABNORMAL) Urine Culture (03/01/2025 4:15 PM EDT) Only the most recent of3 resultswithin the time period is included. Culture 10,000 - 100,000 CFU/mL Enterobacter cloacae complex(A) CHRISTIANO 03/05/2025 12:12 PM EDT [facility] Comment: This isolate has been identified using the FDA Approved FX Bridgeer [place] System Edited result: Previously reported as [...] MICROBIOLOGY - GENERAL ORDER GIO Final Result [facility] [address] [place] [address] * (ABNORMAL) CBC and Differential (03/01/2025 4:08 AM EDT) Only the most recent of4 resultswithin the time period is included. WBC Count 6.83 3.70 - 10.30 10*3/uL LAB HEMATOLOGY METHOD 03/01/2025 4:54 AM EDT [facility] RBC Count 3.61(L) 3.90 - 5.20 10*6/uL LAB HEMATOLOGY METHOD 03/01/2025 4:54 AM EDT [facility] HGB 9.2(L) 11.2 - 15.7 g/dL LAB HEMATOLOGY METHOD 03/01/2025 4:54 AM EDT [facility] HCT 29.9(L) 34.0 - 45.0 % LAB HEMATOLOGY METHOD 03/01/2025 4:54 AM EDT [facility] Platelet Count 294 155 - 369 10*3/uL LAB HEMATOLOGY METHOD 03/01/2025 4:54 AM EDT [facility] MCV 83 79 - 98 fL LAB HEMATOLOGY METHOD 03/01/2025 4:54 AM EDT [facility] MCH 25.5(L) 26.0 - 32.0 pg LAB HEMATOLOGY METHOD 03/01/2025 4:54 AM EDT [facility] MCHC 30.8 30.7 - 35.5 g/dL LAB HEMATOLOGY METHOD 03/01/2025 4:54 AM EDT [facility] RDW 15.1(H) 11.5 - 14.5 % LAB HEMATOLOGY METHOD 03/01/2025 4:54 AM EDT [facility] MPV 9.2 8.8 - 12.5 fL LAB HEMATOLOGY METHOD 03/01/2025 4:54 AM EDT [facility] nRBC 0.0 <=0.0 per 100 WBCs LAB HEMATOLOGY METHOD 03/01/2025 4:54 AM EDT [facility] Differential Type Automated LAB HEMATOLOGY METHOD 03/01/2025 4:54 AM EDT [facility] Neutrophils % 56 % LAB HEMATOLOGY METHOD 03/01/2025 4:54 AM EDT [facility] Lymphocytes % 25 % LAB HEMATOLOGY METHOD 03/01/2025 4:54 AM EDT [facility] Monocytes % 11 % LAB HEMATOLOGY METHOD 03/01/2025 4:54 AM EDT [facility] Eosinophils % 6 % LAB HEMATOLOGY METHOD 03/01/2025 4:54 AM EDT [facility] Basophils % 1 % LAB HEMATOLOGY METHOD 03/01/2025 4:54 AM EDT [facility] Immature Granulocytes % 1 % LAB HEMATOLOGY METHOD 03/01/2025 4:54 AM EDT [facility] Neutrophils Absolute 3.86 1.60 - 6.10 10*3/uL LAB HEMATOLOGY METHOD 03/01/2025 4:54 AM EDT [facility] Lymphocytes Absolute 1.70 1.20 - 3.90 10*3/uL LAB HEMATOLOGY METHOD 03/01/2025 4:54 AM EDT [facility] Monocytes Absolute 0.74 0.30 - 0.90 10*3/uL LAB HEMATOLOGY METHOD 03/01/2025 4:54 AM EDT [facility] Eosinophils Absolute 0.44 0.00 - 0.50 10*3/uL LAB HEMATOLOGY METHOD 03/01/2025 4:54 AM EDT [facility] Basophils Absolute 0.05 0.00 - 0.10 10*3/uL LAB HEMATOLOGY METHOD 03/01/2025 4:54 AM EDT [facility] Immature Granulocytes Absolute 0.04 0.00 - 0.06 10*3/uL LAB HEMATOLOGY METHOD 03/01/2025 4:54 AM EDT [facility] Blood Venous blood specimen / Unknown Venipuncture / Unknown 03/01/2025 4:08 AM EDT 03/01/2025 4:42 AM EDT Narrative [facility] - 03/01/2025 4:54 AM EDT Therapeutic decision making should be based on absolute values, rather than percentages. us Madonna Singleton MD LAB BLOOD ORDERABLES Final Resul t [facility] [address] [place] [address] * Phosphorus, Plasma (03/01/2025 4:08 AM EDT) Only the most recent of4 resultswithin the time period is included. Phosphorus, Plasma 4.4 2.5 - 4.5 mg/dL 03/01/2025 5:14 AM EDT [facility] Blood Venous blood specimen / Unknown Venipuncture / Unknown 03/01/2025 4:08 AM EDT 03/01/2025 4:43 AM EDT us Madonna Singleton MD LAB BLOOD ORDERABLES Final Resul t [facility] [address] [place] [address] * Magnesium, Plasma (03/01/2025 4:08 AM EDT) Only the most recent of5 resultswithin the time period is included. Pathologist [facility] Magnesium, Plasma 2.0 1.9 - 2.4 mg/dL 03/01/2025 5:14 AM EDT [facility] Blood Venous blood specimen / Unknown Venipuncture / Unknown 03/01/2025 4:08 AM EDT 03/01/2025 4:43 AM EDT us Madonna Singleton MD LAB BLOOD ORDERABLES Final Resul t Performing Organization Address [facility] Co de Phone Number [facility] [address] [place] [address] * (ABNORMAL) Basic Metabolic Panel, Plasma (03/01/2025 4:08 AM EDT) Only the most recent of4 resultswithin the time period is included. Pathologist [facility] Glucose, Plasma 205(H) 74 - 99 mg/dL 03/01/2025 5:14 AM EDT [facility] BUN, Plasma 40(H) 8 - 23 mg/dL 03/01/2025 5:14 AM EDT [facility] Creatinine, Plasma 1.84(H) 0.60 - 1.10 mg/dL 03/01/2025 5:14 AM EDT [facility] BUN/Creatinine Ratio 22 03/01/2025 5:14 AM EDT [facility] Sodium, Plasma 125(L) 136 - 145 mmol/L 03/01/2025 5:14 AM EDT [facility] Potassium, Plasma 4.5 3.6 - 4.9 mmol/L 03/01/2025 5:14 AM EDT [facility] Chloride, Plasma 91(L) 97 - 107 mmol/L 03/01/2025 5:14 AM EDT [facility] CO2, Plasma 23 22 - 29 mmol/L 03/01/2025 5:14 AM EDT [facility] Anion Gap 11 6 - 16 mmol/L 03/01/2025 5:14 AM EDT [facility] Total Calcium, Plasma 8.8(L) 8.9 - 10.2 mg/dL 03/01/2025 5:14 AM EDT [facility] eGFRcr 30.1 mL/min/1.7 3m*2 03/01/2025 5:14 AM EDT [facility] Comment:Reported eGFRcr in m L/min/1.73m2 is based the CKD-EPI 2020 equation that does not use a race coefficient. Blood Venous blood specimen / Unknown Venipuncture / Unknown 03/01/2025 4:08 AM EDT 03/01/2025 4:43 AM EDT us Madonna Singleton MD LAB BLOOD ORDERABLES Final Resul t [facility] [address] [place] [address] * XR Panorex (02/27/2025 12:13 PM EDT) [...] in the posterior aspect of tooth #31. [place] wear in tooth number 8, 9 and 23. No periapical lucency Procedure Note Lucas Cristobal MD - 02/27/2025 CLINICAL INDICATION: Odontogenic infection TECHNIQUE: XR PANOREX COMPARISON: None. FINDINGS: Rounded lucency in tooth #6. Aggressive destruction in the posterioraspect of tooth #31. [place] wear in tooth number 8, 9 and [...] LAB HEMATOLOGY METHOD 02/26/2025 5:25 AM EDT [facility] RBC Count 4.00 3.90 - 5.20 10*6/uL LAB HEMATOLOGY METHOD 02/26/2025 5:25 AM EDT [facility] HGB 10.3(L) 11.2 - 15.7 g/dL LAB HEMATOLOGY METHOD 02/26/2025 5:25 AM EDT [facility] HCT 32.3(L) 34.0 - 45.0 % LAB HEMATOLOGY METHOD 02/26/2025 5:25 AM EDT [facility] Platelet Count 375(H) 155 - 369 10*3/uL LAB HEMATOLOGY METHOD 02/26/2025 5:25 AM EDT [facility] MCV 81 79 - 98 fL LAB HEMATOLOGY METHOD 02/26/2025 5:25 AM EDT [facility] MCH 25.8(L) 26.0 - 32.0 pg LAB HEMATOLOGY METHOD 02/26/2025 5:25 AM EDT [facility] MCHC 31.9 30.7 - 35.5 g/dL LAB HEMATOLOGY METHOD 02/26/2025 5:25 AM EDT [facility] RDW 15.5(H) 11.5 - 14.5 % LAB HEMATOLOGY METHOD 02/26/2025 5:25 AM EDT [facility] MPV 8.9 8.8 - 12.5 fL LAB HEMATOLOGY METHOD 02/26/2025 5:25 AM EDT [facility] nRBC 0.0 <=0.0 per 100 WBCs LAB HEMATOLOGY METHOD 02/26/2025 5:25 AM EDT [facility] Blood Venous blood specimen / Unknown Venipuncture / Unknown 02/26/2025 4:51 AM EDT 02/26/2025 5:12 AM EDT us Ludy Hill MD LAB BLOOD ORDERABLES Final Resul t [facility] [address] [place] [address] * (ABNORMAL) Renal function panel (02/26/2025 4:51 AM EDT) Glucose, Plasma 156(H) 74 - 99 mg/dL 02/26/2025 5:54 AM EDT [facility] BUN, Plasma 26(H) 8 - 23 mg/dL 02/26/2025 5:54 AM EDT [facility] Creatinine, Plasma 1.62(H) 0.60 - 1.10 mg/dL 02/26/2025 5:54 AM EDT [facility] BUN/Creatinine Ratio 16 02/26/2025 5:54 AM EDT [facility] Sodium, Plasma 133(L) 136 - 145 mmol/L 02/26/2025 5:54 AM EDT [facility] Potassium, Plasma 4.2 3.6 - 4.9 mmol/L 02/26/2025 5:54 AM EDT [facility] Chloride, Plasma 96(L) 97 - 107 mmol/L 02/26/2025 5:54 AM EDT [facility] CO2, Plasma 24 22 - 29 mmol/L 02/26/2025 5:54 AM EDT [facility] Anion Gap 13 6 - 16 mmol/L 02/26/2025 5:54 AM EDT [facility] Total Calcium, Plasma 8.9 8.9 - 10.2 mg/dL 02/26/2025 5:54 AM EDT [facility] Phosphorus, Plasma 3.8 2.5 - 4.5 mg/dL 02/26/2025 5:54 AM EDT [facility] Albumin, Plasma 3.5 3.5 - 5.2 g/dL 02/26/2025 5:54 AM EDT [facility] eGFRcr 35.1 mL/min/1.7 3m*2 02/26/2025 5:54 AM EDT [facility] Comment:Reported eGFRcr in m L/min/1.73m2 is based the CKD-EPI 2020 equation that does not use a race coefficient. Blood Venous blood specimen / Unknown Venipuncture / Unknown 02/26/2025 4:51 AM EDT 02/26/2025 5:13 AM EDT Ludy Hill MD LAB BLOOD ORDERABLES Final Resul t Performing Organization Address City/[facility]/ZIP Co de Phone Number [facility] [address] [place] [address] * ECG Adult (02/25/2025 6:38 PM EDT) Only the most recent of4 resultswithin the time period is included. EKG DIAGNOSIS CLASS Abnormal MUSE ECG Ventricular Rate 68 BPM MUSE ECG Atrial Rate 68 BPM MUSE ECG CO Interval 198 ms MUSE ECG QRSD Interval 136 ms MUSE ECG QT Interval 450 ms MUSE ECG QTC Interval 478 ms MUSE ECG P Saffell 71 degrees MUSE ECG R Saffell 265 degrees MUSE ECG T Wave Saffell 50 degrees MUSE ECG Diagnosis Sinus rhythm [...] - 0.95 mg/L 02/25/2025 2:27 AM EDT [facility] Blood Venous blood specimen / Unknown Venipuncture / Unknown 02/25/2025 1:36 AM EDT 02/25/2025 1:57 AM EDT us Daniel Ralph MD LAB BLOOD ORDERABLES Final R esult [facility] [address] [place] [address] * CO CRITICAL CARE, E/M 30-74 MINUTES (02/24/2025 7:08 [...] LAB HEMATOLOGY METHOD 02/24/2025 1:14 AM EDT [facility] Blood Venous blood specimen / Unknown Venipuncture / Unknown 02/24/2025 1:01 AM EDT 02/24/2025 1:13 AM EDT Daniel Ralph MD LAB BLOOD ORDERABLES Final R esult Performing Organization Address [facility] [[email or web address]] de Phone Number [facility] [address] [place] [address] * (ABNORMAL) Procalcitonin (02/24/2025 1:01 AM EDT) Only the most recent of2 resultswithin the time period is included. Pathologist [facility] Procalcitonin, Plasma 0.12(H) <0.09 ng/mL 02/24/2025 1:44 AM EDT [facility] Blood Venous blood specimen / Unknown Venipuncture / Unknown 02/24/2025 1:01 AM EDT 02/24/2025 1:06 AM EDT Narrative [facility] - 02/24/2025 1:44 AM [...] predict 28 day mortality risk. Please consult [email or web address] for more information. Test performed at [facility]. us Daniel Ralph MD LAB BLOOD ORDERABLES Final R esult Performing Organization Address City/[facility]/ZIP Co de Phone Number [facility] [address] [place] [address] * (ABNORMAL) Blood gas panel, venous (02/24/2025 1:01 AM EDT) Only the most recent of5 resultswithin the time period is included. pH, Venous 7.43 7.32 - 7.43 LAB HEMATOLOGY METHOD 02/24/2025 1:19 AM EDT [facility] pCO2, Venous 40 37 - 52 mmHg LAB HEMATOLOGY METHOD 02/24/2025 1:19 AM EDT [facility] pO2, Venous 143(H) 25 - 40 mmHg LAB HEMATOLOGY METHOD 02/24/2025 1:19 AM EDT [facility] SO2, Measured, Venous 98(H) 65 - 80 % LAB HEMATOLOGY METHOD 02/24/2025 1:19 AM EDT [facility] Base Excess, Venous 1.9 -2.0 - 3.0 mmol/L LAB HEMATOLOGY METHOD 02/24/2025 1:19 AM EDT [facility] Bicarbonate, Calculated, Venous 27(H) 22 - 26 mmol/L LAB HEMATOLOGY METHOD 02/24/2025 1:19 AM EDT [facility] Hematocrit, Whole Blood 27.7(L) 34.0 - 45.0 % LAB HEMATOLOGY METHOD 02/24/2025 1:19 AM EDT [facility] Sodium, Whole Blood 132(L) 136 - 145 mmol/L LAB HEMATOLOGY METHOD 02/24/2025 1:19 AM EDT [facility] Potassium, Whole Blood 4.3 3.6 - 4.9 mmol/L LAB HEMATOLOGY METHOD 02/24/2025 1:19 AM EDT [facility] Chloride, Whole Blood 99 97 - 107 mmol/L LAB HEMATOLOGY METHOD 02/24/2025 1:19 AM EDT [facility] Glucose, Whole Blood 154(H) 74 - 99 mg/dL LAB HEMATOLOGY METHOD 02/24/2025 1:19 AM EDT [facility] Lactate, Venous, Whole Blood 0.9 0.5 - 2.2 mmol/L LAB HEMATOLOGY METHOD 02/24/2025 1:19 AM EDT [facility] Ionized Calcium, Whole Blood 4.2(L) 4.6 - 5.1 mg/dL LAB HEMATOLOGY METHOD 02/24/2025 1:19 AM EDT [facility] Blood Venous blood specimen / Unknown Venipuncture / Unknown 02/24/2025 1:01 AM EDT 02/24/2025 1:13 AM EDT us Daniel Ralph MD LAB BLOOD ORDERABLES Final R esult [facility] [address] [place] [address] * (ABNORMAL) Comprehensive metabolic panel (02/24/2025 1:01 AM EDT) Only the most recent of2 resultswithin the time period is included. Glucose, Plasma 152(H) 74 - 99 mg/dL 02/24/2025 1:44 AM EDT [facility] BUN, Plasma 40(H) 8 - 23 mg/dL 02/24/2025 1:44 AM EDT [facility] Creatinine, Plasma 2.04(H) 0.60 - 1.10 mg/dL 02/24/2025 1:44 AM EDT [facility] BUN/Creatinine Ratio 20 02/24/2025 1:44 AM EDT [facility] Sodium, Plasma 132(L) 136 - 145 mmol/L 02/24/2025 1:44 AM EDT [facility] Potassium, Plasma 4.9 3.6 - 4.9 mmol/L 02/24/2025 1:44 AM EDT [facility] Chloride, Plasma 97 97 - 107 mmol/L 02/24/2025 1:44 AM EDT [facility] CO2, Plasma 22 22 - 29 mmol/L 02/24/2025 1:44 AM EDT [facility] Anion Gap 13 6 - 16 mmol/L 02/24/2025 1:44 AM EDT [facility] Total Calcium, Plasma 8.6(L) 8.9 - 10.2 mg/dL 02/24/2025 1:44 AM EDT [facility] Total Protein 6.9 6.3 - 7.9 g/dL 02/24/2025 1:44 AM EDT [facility] Albumin, Plasma 3.3(L) 3.5 - 5.2 g/dL 02/24/2025 1:44 AM EDT [facility] AST, Plasma 16 10 - 35 U/L 02/24/2025 1:44 AM EDT [facility] Comment:Hemolyzed, result ma y be falsely increased. ALT, Plasma 15 10 - 35 U/L 02/24/2025 1:44 AM EDT [facility] Alkaline Phosphatase, Plasma 105 46 - 142 U/L 02/24/2025 1:44 AM EDT [facility] Total Bilirubin, Plasma <0.2(L) 0.2 - 1.1 mg/dL 02/24/2025 1:44 AM EDT [facility] eGFRcr 26.6 mL/min/1.7 3m*2 02/24/2025 1:44 AM EDT [facility] Comment:Reported eGFRcr in m L/min/1.73m2 is based the CKD-EPI 2020 equation that does not use a race coefficient. Blood Venous blood specimen / Unknown Venipuncture / Unknown 02/24/2025 1:01 AM EDT 02/24/2025 1:06 AM EDT Daniel Ralph MD LAB BLOOD ORDERABLES Final R esult Performing Organization Address City/[facility]/ZIP Co de Phone Number [facility] [address] [place] [address] * Sodium, urine, random (02/23/2025 3:12 PM EDT) Sodium, Urine 31 mmol/L 02/23/2025 4:03 PM EDT [facility] Urine Urine specimen from urinary conduit / Unknown Non-blood Collection / Unknown 02/23/2025 3:12 PM EDT 02/23/2025 3:24 PM EDT us Daniel Ralph MD LAB URINE ORDERABLES Final R esult [facility] [address] [place] [address] * Osmolality, urine (02/23/2025 3:12 PM EDT) Osmolality, Urine 408 50 - 1,200 mOsm/kg 02/23/2025 3:59 PM EDT [facility] Urine Urine specimen from urinary conduit / Unknown Non-blood Collection / Unknown 02/23/2025 3:12 PM EDT 02/23/2025 3:23 PM EDT us Daniel Ralph MD LAB URINE ORDERABLES Final R esult Performing Organization Address [facility]/ZIP Co de Phone Number [facility] [address] [place] [address] * (ABNORMAL) Sodium (02/23/2025 3:04 PM EDT) Only the most recent of4 resultswithin the time period is included. Sodium, Plasma 129(L) 136 - 145 mmol/L 02/23/2025 3:44 PM EDT [facility] Blood Venous blood specimen / Unknown Venipuncture / Unknown 02/23/2025 3:04 PM EDT 02/23/2025 3:13 PM EDT Result Tavon Ralph MD LAB BLOOD ORDERABLES Final R esult Performing Organization Address [facility] Co de Phone Number [facility] [address] [place] [address] * Osmolality (02/23/2025 3:04 PM EDT) Osmolality, Serum 289 280 - 301 mOsm/Kg 02/23/2025 4:11 PM EDT [facility] Blood Venous blood specimen / Unknown Venipuncture / Unknown 02/23/2025 3:04 PM EDT 02/23/2025 3:13 PM EDT us Daniel Ralph MD LAB BLOOD ORDERABLES Final R esult Performing Organization Address City/[facility] Co de Phone Number [facility] [address] [place] [address] * Streptococcus pneumoniae and Legionella Urinary Antigen (02/23/2025 11:05 AM EDT) Legionella pneumophila serogroup 1 Antigen Result (Urine) Negative Negative 02/24/2025 7:01 AM EDT [facility] Streptococcus pneumoniae Antigen Result (Urine) Negative Negative 02/24/2025 7:01 AM EDT [facility] Urine Urine specimen obtained by clean catch procedure / Unknown Non-blood Collection / Unknown 02/23/2025 11:05 AM EDT 02/23/2025 11:16 AM EDT Daniel Ralph MD LAB MICROBIOLOGY - GENERAL O RDERABLES Final Result [facility] [address] [place] [address] * CO CRITICAL CARE, E/M 30-74 MINUTES (02/23/2025 9:10 [...] Plasma 25.9 ug/mL 02/23/2025 9:20 AM EDT [facility] Blood Venous blood specimen / Unknown Venipuncture / Unknown 02/23/2025 8:34 AM EDT 02/23/2025 8:50 AM EDT Daniel Ralph MD LAB BLOOD ORDERABLES Final R esult Performing Organization Address City/[facility]/ZIP Co de Phone Number [facility] [address] [place] [address] * (ABNORMAL) Nasopharyngeal Respiratory Panel (02/23/2025 2:05 AM EDT) Human Rhinovirus/Ent erovirus PCR Result Detected( A) Not Detected 02/23/2025 5:07 AM EDT [facility] Swab Nasopharyngeal structure / Unknown Non-blood Collection / Unknown 02/23/2025 2:05 AM EDT 02/23/2025 3:06 AM EDT Narrative [facility] - 02/23/2025 5:07 AM [...] Respiratory PCR Panel is performed using the [employer] e[employer] instrument. This test is FDA approved for use with Nasopharyngeal swabs only. This test is used for clinical purposes. It should not be regarded as investigational or for research. The [facility] is certified under the Clinical Laboratory Improvement Amendments of 1988 (CLIA-88) as qualified to perform high complexity clinical laboratory testing. Daniel Ralph MD LAB MICROBIOLOGY - GENERAL O RDERABLES Final Result Performing Organization Address City/[facility]/ZIP Co de Phone Number [facility] [address] [place] [address] * (ABNORMAL) Methicillin Resistant Staphylococcus aureus (MRSA) by PCR (02/23/2025 2:05 AM EDT) Pathologist [facility] Methicillin Resistant Staphylococcus aureus (MRSA) by PCR Detected( A) Not Detected 02/23/2025 4:19 AM EDT [facility] Swab Both anterior nares / Unknown Non-blood Collection / Unknown 02/23/2025 2:05 AM EDT 02/23/2025 3:06 AM EDT Narrative [facility] - 02/23/2025 4:19 AM [...] Organization Address [facility] Co de Phone Number [facility] [address] [place] [address] * (ABNORMAL) Troponin T, High Sensitivity, 2 Hour, Plasma (02/23/2025 2:04 AM EDT) [facility] Troponin T, High Sensitivity, 2 Hour 37(H) <14 ng/L 02/23/2025 2:52 AM EDT [facility] Troponin Delta Interpretation Not Calculated 02/23/2025 2:52 AM EDT [facility] Comment:Specimen not collect ed within acceptable timeframe. Delta will not be calculated. Blood Venous blood specimen / Unknown Venipuncture / Unknown 02/23/2025 2:04 AM EDT 02/23/2025 2:24 AM EDT Daniel Ralph MD LAB BLOOD ORDERABLES Final R esult Performing Organization Address [facility] Co de Phone Number [facility] [address] [place] [address] * Anti Xa Level Low Molecular Weight (02/23/2025 2:04 AM EDT) [facility] Anti Xa Level Low Molecular Weight Heparin 1.12 <2.00 IU/mL LAB COAGULATION METHOD 02/23/2025 2:44 AM EDT [facility] Blood Venous blood specimen / Unknown Venipuncture / Unknown 02/23/2025 2:04 AM EDT 02/23/2025 2:24 AM EDT Narrative [facility] - 02/23/2025 2:44 AM EDT Therapeutic Range: LMWH enoxaparin 1mg/kg/dose, 12hrs - peak (3-5 hours after dose): 0.5 - 1.0 IU/mL LMWH enoxaparin 1.5mg/kg/dose, 24hrs - peak (3-5 hours after dose): 1.0 - 2.0 IU/mL LMWH enoxaparin prophylaxis: Not established Daniel Ralph MD LAB BLOOD ORDERABLES Final R esult Performing Organization Address [facility]/ZIP Co de Phone Number [facility] [address] [place] [address] * (ABNORMAL) Troponin T, High Sensitivity, 0 Hour Plasma, Reflex to 2 Hour (02/23/2025 12:05 AM EDT) Troponin T, High Sensitivity, 0 Hour 40(H) <14 ng/L 02/23/2025 12:44 AM EDT [facility] Blood Venous blood specimen / Unknown Venipuncture / Unknown 02/23/2025 12:05 AM EDT 02/23/2025 12:17 AM EDT Daniel Ralph MD LAB BLOOD ORDERABLES Final R esult Performing Organization Address [facility]/State/ZIP Co de Phone Number [facility] [address] [place] [address] * (ABNORMAL) Quantitative BAL/PAL/Bronch Wash Culture and Gram StainProtected Alveolar Lavage (02/23/2025 12:00 AM EDT) Culture [id number] CFU/mL Mixed upper respiratory jesus(A) 02/24/2025 12:09 PM EDT [facility] Comment:The organism value f or this result has been updated. These results have been appended to the previously preliminary verified report. Gram Stain Result Numerous Polymorphonuclear leukocytes(A) 02/24/2025 12:09 PM EDT [facility] Gram Stain Result Numerous Gram positive cocci in pairs(A) 02/24/2025 12:09 PM EDT [facility] Gram Stain Result Moderate Gram positive cocci in clusters(A) 02/24/2025 12:09 PM EDT [facility] Gram Stain Result Moderate Gram positive rods(A) 02/24/2025 12:09 PM EDT [facility] Protected Alveolar Lavage (Protected Alveolar Lavage) 02/23/2025 12:00 AM EDT 02/23/2025 1:17 AM EDT Daniel Ralph MD LAB MICROBIOLOGY - GENERAL O RDERABLES Final Result Performing Organization Address City/[facility] Co de Phone Number [facility] [address] [place] [address] * (ABNORMAL) N-Terminal Probnp (02/22/2025 10:03 PM EDT) Only the most recent of2 resultswithin the time period is included. N-Terminal, PROBNP, Plasma 1,542(H) 0 - 899 pg/mL 02/22/2025 10:48 PM EDT [facility] Blood Venous blood specimen / Unknown Venipuncture / Unknown 02/22/2025 10:03 PM EDT 02/22/2025 10:11 PM EDT Bobby Parra MD LAB BLOOD ORDERABLES Final R esult Performing Organization Address City/[facility]/ZIP Co de Phone Number [facility] [address] [place] [address] * Maira auris Surveillance by PCR (02/22/2025 10:02 PM EDT) Maira auris PCR Result Not Detected Not Detected 02/24/2025 7:03 AM EDT [facility] Swab (Axilla and Groin) Non-blood Collection / Unknown 02/22/2025 10:02 PM EDT 02/22/2025 10:16 PM EDT Narrative [facility] - 02/24/2025 7:03 AM EDT This PCR assay was developed and its performance characteristics determined by [facility] as appropriate for clinical purposes. This assay has not been cleared or approved by the FDA, but is performed in a CLIA regulated laboratory that is qualified to perform high-complexity testing. Bobby Parra MD LAB MICROBIOLOGY - GENERAL O RDERABLES Final Result Performing Organization Address [facility] Co de Phone Number [facility] [address] [place] [address] * (ABNORMAL) Multi Drug Resistance Test (02/22/2025 10:02 PM EDT) Culture Methicillin-Resist ant Staphylococcus aureus(AA) 02/24/2025 6:58 AM EDT [facility] Swab (Nares and Samantha Rectal) Non-blood Collection / Unknown 02/22/2025 10:02 PM EDT 02/22/2025 10:16 PM EDT Narrative [facility] - 02/24/2025 6:58 AM EDT This test was developed and its performance characteristics determined by the [facility]. Although the media is FDA-approved, it is not FDA-approved for all specimen types submitted. The FDA has determined that such clearance or approval is not necessary. This test is used for surveillance purposes. It should not be regarded as investigational or for research. The [facility] is certified under the Clinical Laboratory Improvement Amendments of 1988 (CLIA-88) as qualified to perform high complexity clinical laboratory testing. Bobby Parra MD LAB MICROBIOLOGY - GENERAL O RDERABLES Final Result Performing Organization Address [facility] Co de Phone Number [address] [address] * Drug abuse screen (02/22/2025 10:01 PM EDT) Amphetamine Screen Urine Negative Cutoff: 500 ng/mL 02/23/2025 12:22 AM EDT [facility] Benzodiazepines Screen Urine Negative Cutoff: 200 ng/mL 02/23/2025 12:22 AM EDT [facility] Cannabinoid Screen Urine Negative Cutoff: 50 ng/mL 02/23/2025 12:22 AM EDT [facility] Cocaine Screen Urine Negative Cutoff: 300 ng/mL 02/23/2025 12:22 AM EDT [facility] Barbiturate Screen Urine Negative Cutoff: 200 ng/mL 02/23/2025 12:22 AM EDT [facility] Opiate Screen Urine Negative Cutoff: 300 ng/mL 02/23/2025 12:22 AM EDT [facility] Methadone Screen Urine Negative Cutoff: 300 ng/mL 02/23/2025 12:22 AM EDT [facility] Buprenorphine Screen Urine Negative Cutoff: 10 ng/mL 02/23/2025 12:22 AM EDT [facility] Fentanyl Screen Urine Presumptive positive. Confirmation by LC-MS/MS to follow. Cutoff: 1 ng/mL 02/23/2025 12:22 AM EDT [facility] Oxycodone Screen Urine Negative Cutoff: 100 ng/mL 02/23/2025 12:22 AM EDT [facility] Urine Urine specimen obtained by clean catch procedure / Unknown Non-blood Collection / Unknown 02/22/2025 10:01 PM EDT 02/22/2025 10:11 PM EDT Daniel Gordillo MD LAB URINE ORDERABLES Final Result [facility] [address] [place] [address] * (ABNORMAL) Fentanyl Urine Confirm (02/22/2025 10:01 PM EDT) Fentanyl 1(H) <1 ng/mL 02/24/2025 9:18 AM EDT [facility] Norfentanyl 2(H) <2 ng/mL 02/24/2025 9:18 AM EDT [facility] Urine Urine specimen obtained by clean catch procedure / Unknown Non-blood Collection / Unknown 02/22/2025 10:01 PM EDT 02/22/2025 10:11 PM EDT Narrative [facility] - 02/24/2025 9:18 AM EDT Drug analysis is confirmed by LC-MS/MS (LC Tandem Mass Spectrometry) on Urine specimens. This test was developed and its performance characteristics determined by [facility]. It has not been cleared or approved by the FDA. The laboratory is regulated under CLIA as qualified to perform high-complexity testing. This test is used for clinical purposes. Testing is performed at the [facility], [facility] Laboratory. us Daniel Gordillo MD LAB URINE ORDERABLES Final Result [facility] [address] [place] [address] * (ABNORMAL) POCT arterial blood gas gem (02/22/2025 9:05 PM EDT) pH, Arterial 7.45(H) 7.31 - 7.42 02/22/2025 9:06 PM EDT [facility] pCO2, Arterial 37 35 - 48 mm Hg 02/22/2025 9:06 PM EDT [facility] pO2, Arterial 86 >80 mm Hg 02/22/2025 9:06 PM EDT [facility] SO2, Arterial 98 94 - 98 % 02/22/2025 9:06 PM EDT [facility] FIO2 60.0 % 02/22/2025 9:06 PM EDT [facility] Base Excess, Arterial 1.7 -2 - 3 mmol/L 02/22/2025 9:06 PM EDT [facility] HCO3, Arterial 25.7 22 - 26 mmol/L 02/22/2025 9:06 PM EDT [facility] Total Hemoglobin, Arterial, Whole Blood 9.1(L) 11.2 - 15.7 g/dL 02/22/2025 9:06 PM EDT [facility] Hematocrit, Arterial 27.0(L) 34.0 - 45.0 % 02/22/2025 9:06 PM EDT [facility] Sodium, Arterial 125(L) 136 - 145 mmol/L 02/22/2025 9:06 PM EDT [facility] Potassium, Arterial 4.9 3.6 - 4.9 mmol/L 02/22/2025 9:06 PM EDT [facility] Comment:Hemolyzed, result ma y be falsely increased. Chloride, Whole Blood 95(L) 97 - 107 mmol/L 02/22/2025 9:06 PM EDT [facility] Glucose, Arterial 116(H) 74 - 99 mg/dL 02/22/2025 9:06 PM EDT [facility] Ionized Calcium, Arterial 4.8 4.6 - 5.1 mg/dL 02/22/2025 9:06 PM EDT [facility] Lactate, Arterial 0.8 0.5 - 1.6 mmol/L 02/22/2025 9:06 PM EDT [facility] Body Temperature 37.0 Celsius 02/22/2025 9:06 PM EDT [facility] pH, Temp Corrected, Arterial 7.45(H) 7.31 - 7.42 02/22/2025 9:06 PM EDT [facility] pCO2, Temp Corrected, Arterial 37 35 - 48 mm Hg 02/22/2025 9:06 PM EDT [facility] pO2, Temp Corrected, Arterial 86 >80 mm Hg 02/22/2025 9:06 PM EDT [facility] Drawstring Knotter ID Slim Morton 02/22/2025 9:06 PM EDT [facility] Blood, Arterial Whole blood specimen / Unknown 02/22/2025 9:05 PM EDT 02/22/2025 9:06 PM EDT us Daniel Ralph MD LAB POINT OF CARE TE ST DOCKED DEVICE UNSOLICITED RESULTS Final Result Performing Organization Address City/State/[facility] Co de Phone Number [facility] [address] [place] [id number] * Blood Culture (Aerobic/Anaerobet Set) (02/22/2025 8:55 PM EDT) Culture No growth at day 5 02/27/2025 10:01 PM EDT [facility] Blood Structure of right hand / Unknown Venipuncture / Unknown 02/22/2025 8:55 PM EDT 02/22/2025 9:29 PM EDT Narrative [facility] - 02/27/2025 10:01 PM EDT Low blood volume submitted, results may be compromised us Daniel Gordillo MD LAB MICROBIOLOGY - GENERAL ORDERABLES Final Result Performing Organization Address City/[facility]/ZIP Co de Phone Number [facility] [address] [place] [address] * Ionized calcium, serum (02/22/2025 8:36 PM EDT) Ionized Calcium, Serum 4.8 4.6 - 5.3 mg/dL LAB HEMATOLOGY METHOD 02/22/2025 9:42 PM EDT [facility] Blood Venous blood specimen / Unknown Venipuncture / Unknown 02/22/2025 8:36 PM EDT 02/22/2025 8:53 PM EDT Bobby Parra MD LAB BLOOD ORDERABLES Final R esult Performing Organization Address [facility] Co de Phone Number [facility] [address] [place] [address] * XR Chest 1 View (02/22/2025 7:05 [...] Jin Yoder MD on 02/22/2025 7:46 PM Danile Gordillo MD IMG XR PROCEDURES Final Res [...] Yoder MD on 02/22/2025 7:46 PM us Dnaiel Gordillo MD IMG XR PROCEDURES Final Res ult * Ethyl Alcohol Plasma (02/22/2025 6:41 PM EDT) Ethanol Plasma <10 <10 mg/dL 02/22/2025 8:13 PM EDT [facility] Blood Venous blood specimen / Unknown Venipuncture / Unknown 02/22/2025 6:41 PM EDT 02/22/2025 8:00 PM EDT Narrative [facility] - 02/22/2025 8:13 PM EDT Enzymatic Assay: Performed on [employer]ector Rufus. us Daniel Gordillo MD LAB BLOOD ORDERABLES Final Result Performing Organization Address City/[facility]/ZIP Co de Phone Number [facility] [address] [place] [address] * Thyroid Stimulating Hormone, Plasma (02/22/2025 6:41 PM EDT) Thyroid Stimulating Hormone, Plasma 1.03 0.40 - 4.20 uIU/mL 02/22/2025 7:24 PM EDT [facility] Blood Venous blood specimen / Unknown Venipuncture / Unknown 02/22/2025 6:41 PM EDT 02/22/2025 6:47 PM EDT Daniel Gordillo MD LAB BLOOD ORDERABLES Final Result Performing Organization Address [facility]/ZIP Co de Phone Number [facility] [address] [place] [address] * Free T4, Plasma (02/22/2025 6:41 PM EDT) Free T4, Plasma 1.3 0.8 - 1.7 ng/dL 02/22/2025 7:24 PM EDT [facility] Blood Venous blood specimen / Unknown Venipuncture / Unknown 02/22/2025 6:41 PM EDT 02/22/2025 6:47 PM EDT Daniel Gordillo MD LAB BLOOD ORDERABLES Final Result Performing Organization Address City/[facility]/[place] [address] * (ABNORMAL) Hemoglobin A1c (02/22/2025 6:41 PM EDT) Hemoglobin A1c 9.2(H) <5.7 % 02/23/2025 1:40 PM EDT [facility] Blood Venous blood specimen / Unknown Venipuncture / Unknown 02/22/2025 6:41 PM EDT 02/22/2025 6:47 PM EDT Narrative [facility] - 02/23/2025 1:40 PM EDT HA1C Interpretive Data: Diagnosis of Diabetes: Diabetic > or = 6.5% Pre-diabetic 5.7 to 6.4% Non-diabetic < or = 5.6% Glycemic Targets for Type I and Type II Diabetics: Non- Adults <7.0% Adults <6.0% Children and Adolescents <7.5% Source: [employer]. Standards of medical care in diabetes,2017. Diabetes Care.2017:40 (suppl 1):S1-S135. us Bobby Parra MD LAB BLOOD ORDERABLES Final R esult [facility] [address] [place] [address] * (ABNORMAL) POCT venous blood gas gem (02/22/2025 6:37 PM EDT) pH, Venous 7.28(L) 7.32 - 7.43 02/22/2025 6:38 PM EDT [facility] pCO2, Venous 60(HH) 37 - 52 mm Hg 02/22/2025 6:38 PM EDT [facility] pO2, Venous 41(H) 25 - 40 mm Hg 02/22/2025 6:38 PM EDT [facility] SO2, Venous 72 65 - 80 % 02/22/2025 6:38 PM EDT [facility] Base Excess/Deficit, Venous 0.8 -2 - 3 mmol/L 02/22/2025 6:38 PM EDT [facility] HCO3, Venous 28.2(H) 22 - 26 mmol/L 02/22/2025 6:38 PM EDT [facility] Hemoglobin, Venous 9.2(L) 11.2 - 15.7 g/dL 02/22/2025 6:38 PM EDT [facility] Hematocrit, Venous 28.0(L) 34.0 - 45.0 % 02/22/2025 6:38 PM EDT [facility] Sodium, Venous 126(L) 136 - 145 mmol/L 02/22/2025 6:38 PM EDT [facility] Potassium, Venous 4.6 3.6 - 4.9 mmol/L 02/22/2025 6:38 PM EDT [facility] Comment:Hemolyzed, result ma y be falsely increased. POCT Chloride, Venous 94(L) 97 - 107 mmol/L 02/22/2025 6:38 PM EDT [facility] Glucose, Venous 139(H) 74 - 99 mg/dL 02/22/2025 6:38 PM EDT [facility] Ionized Calcium, Venous 4.9 4.6 - 5.1 mg/dL 02/22/2025 6:38 PM EDT [facility] Lactate, Venous 0.6 0.5 - 2.2 mmol/L 02/22/2025 6:38 PM EDT [facility] Body Temperature 37.0 Celsius 02/22/2025 6:38 PM EDT [facility] pH, Temp Corrected, Venous 7.28(L) 7.32 - 7.43 02/22/2025 6:38 PM EDT [facility] pCO2, Temp Corrected, Venous 60(HH) 37 - 52 mm Hg 02/22/2025 6:38 PM EDT [facility] pO2, Temp Corrected, Venous 41(H) 25 - 40 mm Hg 02/22/2025 6:38 PM EDT [facility] Drawstring Knotter ID Joao Jackson 02/22/2025 6:38 PM EDT [facility] Blood, Venous Whole blood specimen / Unknown 02/22/2025 6:37 PM EDT 02/22/2025 6:38 PM EDT us Generic Provider Poct LAB POINT OF CARE TEST DOCKED DEVICE UNSOLICITED RESULTS Final Result Performing Organization Address City/State/[facility] Co de Phone Number [facility] [address] [place] [address] * INTUBATION (02/22/2025 6:13 PM EDT) Narrative [...] IN CLINIC/BEDSIDE ORDERABLE S Final Result * [place] Less than 1 [...] MICROBIOLOGY - GENERAL O RDERABLES Final Result [facility] [address] [place] [id number] * CO AN ELECTIVE ENDOTRACHEAL AIRWAY, PB ANESTHESIA PLACEHOLDER (01/31/2025 9:58 AM EDT) Narrative Migue Seay CRNA - 01/31/2025 9:58 AM EDT Migue Seay CRNA 01/31/2025 10:45 AM Airway Date/Time: 01/31/2025 9:58 AM Reason: elective Airway not difficult General Information and Staff Patient location during procedure: [place] CORN SHREDDER: Migue Seay CRNA Performed: CORN SHREDDER Patient Condition Indications for airway management: anesthesia [...] following split bolus administration of IV contrast, [id number], 150 mL. Reformatted images in the coronal [...] MD on 01/03/2025 3:33 PM Cayla Erazo FIRST AID INSTRUCTOR, DNP IMG CT PROCEDURES Final Result * Hepatitis C Antibody - ED (08/15/2024 5:35 AM EST) Hepatitis C Antibody Negative Negative 08/15/2024 7:08 AM EST [facility] Blood Venous blood specimen / Unknown Venipuncture / Unknown 08/15/2024 5:35 AM EST 08/15/2024 6:06 AM EST Marcy Zhong MD LAB BLOOD ORDERABLES Final Resu lt [facility] [address] [place] [address] * Cytology (04/10/2013 12:00 AM EDT) Specimen from axilla structure obtained by fine needle aspiration biopsy (specimen) 04/10/2013 04/10/2013 2:2 3 PM EDT Narrative SUNQUEST - 04/10/2013 3:59 PM EDT [facility] MR #: [id number] [facility] [place], [place] [address] 1960 (Age: 52) FW Collect Date: 04/10/2013 00:00 Receipt Date: 04/10/2013 14:23 Page 1 DEPARTMENT OF PATHOLOGY AND LABORATORY MEDICINE CYTOPATHOLOGY REPORT Email: [email or web address] ATTENDING MD/Practitioner: Kimmie Aguilera MD Service: BCC [...] 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 Jonatan [...] RECEPTOR POSITIVE STATUS (ER POSITIVE) F: A; 33744 ASP INTER, 72[address], [address]27 SNOMED CODES: A; [id number] F16765 T04505 L78994 Y26845 DA2553 P1149 CG2760 A resident has participated in this service. A pathologist has performed and is responsible for the reported pathologic evaluation. 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 Yes Care Teams Restaurant Manager Relationship Specialty Start Date End Date Vignesh Pickens MD [address] [place] [address] PCP - General 12/31/24 Cayla Erazo APRN, DNP [address] [place] [address] Nurse Practitioner Urology 12/20/24
--- OUTSIDE RECORDS SUMMARY | 2025-04-05 06:58 | XMS_ITS | Encounter Summary ---
Author Organization [facility] Address [address] [place] [address] Care Team Providers Care Icing Machine Operator Name Role Phone Cayla Erazo APRN, DNP Unavailable [phone] Vignesh Pickens MD Primary Care Provider [phone] Encounter Details Date Type Department Care Team [...] drink first t rodríguez in the morning (EYE-MASTER SCHEDULER) to steady your nerves or to get [...] Office Visit [facility] [address], [address]nd [place] [address] Cayla Erazo, SLIP COVER SEAMSTRESS, DNP [address] [place] [address] 05/16/2025 8:00 AM EDT Office Visit [facility] [place] [address] [facility], [address] [place] [address] Karly Gracia MD [address] [place] [address] 06/07/2025 1:00 PM EDT [facility] [address] [place] [address] Tom Iraheta MD [address] [place] [address] documented as of this encounter [...] documented as of this encounter Care Teams Icing Machine Operator Relationship Specialty Start Date End Date Vignesh Pickens MD [address] [place] [address] PCP - General 12/31/24 Cayla Erazo APRN, FREDERICK [address] [facility] [address] [place] [address] Nurse Practitioner Urology 12/20/24 documented as of this encounter
--- OUTSIDE RECORDS SUMMARY | 2025-04-05 06:58 | XMS_ITS | Encounter Summary ---
Author Organization [facility] Address [address] [place] [address] Care Team Providers Care Merry Go Round Operator Name Role Phone Cayla Erazo APRN, DNP Unavailable [phone] Vignesh Pickens MD Primary Care Provider [phone] Encounter Details Date Type Department Care Team (Late st Contact Info) Description 02/22/2025 Orders Only External Location [address] [place] [address] Jordan Carl MD [address] [place] [address] Social History Tobacco Use Types [...] first t rodríguez in the morning (EYE-SALES OPERATIONS ASSISTANT) to steady your nerves or to [...] 1 Month) No 02/26/2025 8:00 AM EDT aHrry Jay RN 6. Suicidal Behavior (Lifetime) No 8:00 AM EDT Bassem Jay RN documented as of this encounter Plan of Treatment Upcoming Encounters Date Type Department Care Team (Late st Contact Info) Description 04/08/2025 9:20 AM EDT Office Visit [facility] [address], [address] [place] [address] Cayla Erazo, POWER REACTOR SUPERVISOR, DNP [address] [facility] [address] [place] [address] 05/16/2025 8:00 AM EDT [facility] [place] [address] [facility], [address] [place] [address] Karly Gracia MD [address] [place] [address] 06/07/2025 1:00 PM EDT Office Visit [facility] [address] [place] [address] Tom Iraheta MD [address] [place] [address] documented as of this [...] documented as of this encounter Care Teams Merry Go Round Operator Relationship Specialty Start Date End Date Vignesh Pickens MD [address] [place] [address] PCP - General 12/31/24 Cayla Erazo APRN, DNP [address] [place] [address] Nurse Practitioner Urology 12/20/24 documented as of this encounter
--- OUTSIDE RECORDS SUMMARY | 2025-04-05 06:58 | XMS_ITS | Encounter Summary ---
Author Organization [facility] Address [address] [place] [address] Care Team Providers Care Desk Manager Name Role Phone Cayla Erazo APRN, DNP Unavailable [phone] Vignesh Pickens MD Primary Care Provider [phone] Encounter Details Date Type Department Care Team (Late st Contact Info) Description 02/22/2025 Orders Only External Location [address] [place] [address] Jordan Carl MD [address] [place] [address] Social History Tobacco Use Types [...] any time in the past 12 m [facility], were you homeless or living in [...] drink first t rodríguez in the morning (EYE-REGISTERED DIET TECHNICIAN) to steady your nerves or to [...] Description 04/08/2025 9:20 AM EDT Office Visit [facility] [address], 2[address] [place] [address] Cayla Erazo, ATTACHER, DNP [address] [facility] [address] [place] [address] 05/16/2025 8:00 AM EDT Office Visit [facility] [place] [address] [facility], [address] [place] [address] Karly Gracia MD [address] [place] [address] 06/07/2025 1:00 PM EDT Office Visit [facility] [address] [place] [address] Tom Iraheta MD [address] [place] [address] documented as of this encounter [...] documented as of this encounter Care Teams Desk Manager Relationship Specialty Start Date End Date Vignesh Pickens MD [address] [place] [address] PCP - General 12/31/24 Cayla Erazo APRN, DNP [address] [place] [address] Nurse Practitioner Urology 12/20/24 documented as of this encounter
--- OUTSIDE RECORDS SUMMARY | 2025-04-05 06:58 | XMS_ITS | Encounter Summary ---
Author Organization [facility] Address [address] [place] [address] Care Team Providers Care Environmental Health And Safety Intern Name Role Phone Cayla Erazo APRN, DNP Unavailable [phone] Vignesh Pickens MD Primary Care Provider [phone] Encounter Details Date Type Department Care Team (Late st Contact Info) Description 03/27/2025 Orders Only External Location [address] [place] [address] Henrik Betts PA [address] [place] [address] Social History Tobacco Use Types Packs/Day Years [...] drink first t rodríguez in the morning (EYE-STACKER STRAIGHTENER) to steady your nerves or to get [...] Description 04/08/2025 9:20 AM EDT Office Visit [facility] [address], [address] [place] [address] Cayla Erazo, GOLF SALES MANAGER, DNP [address] [place] [address] 05/16/2025 8:00 AM EDT Office Visit [facility] [place] [address] [facility], [address] [place] [address] Karly Gracia MD [address] [place] [address] 06/07/2025 1:00 PM EDT Office Visit [facility] [address] [place] [address] Tom Iraheta MD [address] [place] [address] documented as of this encounter Procedures Procedure Name Priority Date/Time Associated Diagnosis Comments CT OUTSIDE IMAGES 03/27/2025 12:37 PM EDT documented in this encounter Results * CT OUTSIDE IMAGES (03/27/2025 12:37 PM EDT) Anatomical Region Laterality Modality Computed Tomogra phy 03/27/2025 12:3 [address] PROCEDURES Final Result documented in this [...] documented as of this encounter Care Teams Environmental Health And Safety Intern Relationship Specialty Start Date End Date Vignesh Pickens MD [address] [place] [address] PCP - General 12/31/24 Cayla Erazo APRN, FREDERICK [address] [place] [address] Nurse Practitioner Urology 12/20/24 documented as of this encounter
--- OUTSIDE RECORDS SUMMARY | 2025-04-05 06:58 | XMS_ITS | Encounter Summary ---
Author Organization [facility] Address [address] [place] [address] Care Team Providers Care Runway Model Name Role Phone Cayla Erazo APRN, DNP Unavailable [phone] Vignesh Pickens MD Primary Care Provider [phone] Encounter Details Date Type Department Care Team (Late st Contact Info) Description 03/27/2025 Orders Only External Location [address] [place] [address] Henrik Betts PA [address] [place] [address] Social History Tobacco Use Types Packs/Day Years [...] drink first t rodríguez in the morning (EYE-QUANTITATIVE DEVELOPER) to steady your nerves or to [...] [facility] [address], 2[address] [place] [address] Cayla Erazo, METAL CEILING BUILDER, DNP [address] [place] [address] 05/16/2025 8:00 AM EDT Office Visit [facility] [place] [address] [facility], [address] [place] [address] Karly Gracia MD [address] [place] [address] 06/07/2025 1:00 PM EDT [facility] Visit [facility] [address] [place] [address] Tom Iraheta MD [address] [place] [address] documented as of this encounter [...] documented as of this encounter Care Teams Runway Model Relationship Specialty Start Date End Date Vignesh Pickens MD [address] [place] [address] PCP - General 12/31/24 Cayla Erazo APRN, FREDERICK [address] [place] [address] Nurse Practitioner Urology 12/20/24 documented as of this encounter
--- OUTSIDE RECORDS SUMMARY | 2025-04-05 06:58 | XMS_ITS | Encounter Summary ---
Author Organization [facility] Address [address] [place] [address] Care Team Providers Care Surgical Supplies Sterilizer Name Role Phone Cayla Erazo APRN, DNP Unavailable [phone] Vignesh Pickens MD Primary Care Provider [phone] Encounter Details Date Type Department Care Team [...] drink first t rodríguez in the morning (EYE-ENDOSCOPY RN) to steady your nerves or to get [...] Office Visit [facility] [address], [address] [place] [address] Cayla Erazo APRN, DNP [address] [address] 05/16/2025 8:00 AM EDT [facility] Visit [facility] [place] [address] [facility], [address] [place] [address] Karly Gracia MD [address] [place] [address] 06/07/2025 1:00 PM EDT Office Visit [facility] [address] [facility] [address] [place] [address] Tom Iraheta MD [address] [place] [address] documented as of this encounter [...] documented as of this encounter Care Teams Surgical Supplies Sterilizer Relationship Specialty Start Date End Date Vignesh Pickens MD [address] [place] [address] PCP - General 12/31/24 Cayla Erazo APRN, FREDERICK [address] [facility] [place] [address] Nurse Practitioner Urology 12/20/24 documented as of this encounter
--- OUTSIDE RECORDS SUMMARY | 2025-04-05 06:58 | XMS_ITS | Encounter Summary ---
Author Organization [facility] Address [address] [place] [address] Care Team Providers Care Securities Counselor Name Role Phone Cayla Erazo APRN, DNP Unavailable [phone] Vignesh Pickens MD Primary Care Provider [phone] Encounter Details Date Type Department Care Team (Late st Contact Info) Description 02/22/2025 Orders Only External Location [address] [place] [address] Jordan Carl MD [address] [place] [address] Social History Tobacco Use Types [...] first t rodríguez in the morning (EYE-CERTIFIED DIALYSIS TECHNICIAN) to steady your nerves or to [...] Office Visit [facility] [address], 2nd [place] [address] Cayla Erazo, [employer] COMPLIANCE INTERNSHIP, DNP [address] [facility] [address] [place] [address] 05/16/2025 8:00 AM EDT Office Visit [facility] [place] [address] [facility], [address] [place] [address] Karly Gracia MD [address] [place] [address] 06/07/2025 1:00 PM EDT Office Visit [facility] [address] [place] [address] Tom Iraheta MD [address] [place] [address] documented as of this encounter [...] documented as of this encounter Care Teams Securities Counselor Relationship Specialty Start Date End Date Vignesh Pickens MD [address] [place] [address] PCP - General 12/31/24 Cayla Erazo APRN, DNP [address] [place] [address] Nurse Practitioner Urology 12/20/24 documented as of this encounter
--- OUTSIDE RECORDS SUMMARY | 2025-04-05 06:58 | XMS_ITS | Encounter Summary ---
Author Organization [facility] Address [address] [place] [address] Care Team Providers Care Medical Tech Name Role Phone Cayla Erazo APRN, DNP Unavailable [phone] Vignesh Pickens MD Primary Care Provider [phone] Encounter Details Date Type Department Care Team (Late st Contact Info) Description 03/27/2025 Orders Only External Location [address] [place] [address] Henrik Betts PA [address] [place] [address] Social History Tobacco Use Types Packs/Day Years [...] drink first t rodríguez in the morning (EYE-ART HISTORY INSTRUCTOR) to steady your nerves or to [...] Office Visit [facility] [address] [place] [address] Cayla Erazo, ORACLE DATABASE ADMINISTRATOR, DNP [address] [place] [address] 05/16/2025 8:00 AM EDT Office Visit [facility] [place] [address] [facility], [address] [place] [address] Karly Gracia MD [address] [place] [address] 06/07/2025 1:00 PM EDT Office Visit [facility] [address] [place] [address] Tom Iraheta MD [address] [place] [address] documented as of this encounter Procedures Procedure Name Priority Date/Time Associated Diagnosis Comments CT OUTSIDE IMAGES 03/27/2025 12:35 PM EDT documented in this encounter Results * CT OUTSIDE IMAGES (03/27/2025 12:35 PM EDT) Anatomical Region Laterality Modality Computed Tomogra phy 03/27/2025 12:3 [address] PROCEDURES Final [...] as of this encounter Care Teams Medical Tech Relationship Specialty Start Date End Date Vignesh Pickens MD [address] [place] [address] PCP - General 12/31/24 Cayla Erazo APRN, FREDERICK [address] [place] [address] Nurse Practitioner Urology 12/20/24 documented as of this encounter
--- OUTSIDE RECORDS SUMMARY | 2025-04-05 06:58 | XMS_ITS | Encounter Summary ---
Author Organization [facility] Address [address] [place] [address] Care Team Providers Care Court Messenger Name Role Phone Cayla Erazo APRN, FREDERICK Unavailable Vignesh Pickens MD Primary Care Provider [phone] Encounter Details Date Type Department Care Team (Late st Contact Info) Description 03/04/2025 Results Follow-Up [facility] Medicine Virtual Dept. [address] [place] [address] Madonna Singleton MD [address] [place] [address] Social History Tobacco Use Types Packs/Day Years [...] time in the past 12 m [facility], were you homeless or living in a [...] drink first t rodríguez in the morning (EYE-DRIVER TRAINER) to steady your nerves or to [...] Office Visit [facility] [address], 2[address] [place] [address] Cayla Erazo, LOADING SUPERVISOR, DNP [address] [place] [address] 05/16/2025 8:00 AM EDT Office Visit [facility] [place] [address] [facility], [address] [place] [address] Karly Gracia MD [address] [place] [address] 06/07/2025 1:00 PM EDT Office Visit [facility] [address] [place] [address] Tom Iraheta MD [address] [place] [address] documented as of this encounter Visit Diagnoses [...] as of this encounter Care Teams Court Messenger Relationship Specialty Start Date End Date Vignesh Pickens MD [address] [place] [address] PCP - General 12/31/24 Cayla Erazo APRN, DNP [address] [place] [address] Nurse Practitioner Urology 12/20/24 documented as of this encounter
--- OUTSIDE RECORDS SUMMARY | 2025-04-05 06:59 | XMS_ITS | Encounter Summary ---
Author Organization [facility] Address [address] [place] [address] Care Team Providers Care Ceiling Insulation Blower Name Role Phone Cayla Erazo APRN, DNP Unavailable [phone] Vignesh Pickens MD Primary Care Provider [phone] Encounter Details Date Type Department Care Team (Late st Contact Info) Description 03/04/2025 Orders Only External Location [address] [place] [address] Provider, External Social History Tobacco Use Types [...] first t rodríguez in the morning (EYE-RADIO BROADCASTER) to steady your nerves or to get [...] Description 04/08/2025 9:20 AM EDT Office Visit [facility] [address], [address] [place] [address] Cayla Erazo, EXTRUSION DIE COORDINATOR, DNP [address] [place] [address] 05/16/2025 8:00 AM EDT Office Visit [facility] [place] [address] [facility], [address] [place] [address] Karly Gracia MD [address] [place] [address] 06/07/2025 1:00 PM EDT Office Visit [facility] [address] [place] [address] Tom Iraheta MD [address] [place] [address] documented as of this encounter Procedures Procedure Name Priority Date/Time Associated Diagnosis Comments CT OUTSIDE IMAGES 03/04/2025 7:06 AM EDT documented in this encounter Results * CT OUTSIDE IMAGES (03/04/2025 7:06 AM EDT) Anatomical Region Laterality Modality Computed Tomogra phy 03/04/2025 7:06 AM EDT us External Provider IMG CT PROCEDURES Final Result documented in [...] documented as of this encounter Care Teams Ceiling Insulation Blower Relationship Specialty Start Date End Date Vignesh Pickens MD [address] [place] [address] PCP - General 12/31/24 Cayla Erazo APRN, DNP [address] [place] [address] Nurse Practitioner Urology 12/20/24 documented as of this encounter
--- OUTSIDE RECORDS SUMMARY | 2025-04-05 06:59 | XMS_ITS | Encounter Summary ---
Author Organization [facility] Address [address] [place] [address] Care Team Providers Care Steam Fitter Supervisor Maintenance Name Role Phone Daniel Barba MD Primary Care Provider [phone] Cayla Erazo APRN, [facility] Unavailable [phone] Vignesh Pickens MD Primary Care Provider [phone] Encounter Details Date Type Department Care Team (Late st Contact Info) Description 10/19/2024 Orders Only External Location [address] [place] [address] Provider, External Social History Tobacco Use Types [...] drink first t rodríguez in the morning (EYE-FUR FEEDER) to steady your nerves or to [...] Description 04/08/2025 9:20 AM EDT Office Visit [facility] [address], [address] [place] [address] Cayla Erazo, CLEARANCE CENTER MANAGER, DNP [address] [place] [address] 05/16/2025 8:00 AM EDT Office Visit [facility] [place] [address] [facility], [address] [place] [address] Karly Gracia MD [address] [place] [address] 06/07/2025 1:00 PM EDT Office Visit [facility] [address] [place] [address] Tom Iraheta MD [address] [place] [address] documented as of this encounter [...] documented as of this encounter Care Teams Steam Fitter Supervisor Maintenance Relationship Specialty Start Date End Date Daniel Barba MD [address] [place] [address] PCP - General 01/02/21 12/30/24 Vignesh Pickens MD [address] [place] [address] PCP - General 12/31/24 Cayla Erazo APRN, [facility] [id number] [place] [address] Nurse Practitioner Urology 12/20/24 documented as of this encounter
--- OUTSIDE RECORDS SUMMARY | 2025-04-05 06:59 | XMS_ITS | Encounter Summary ---
Author Organization [facility] Address [address] [place] [address] Care Team Providers Care Elevator Service Mechanic Name Role Phone Cayla Erazo APRN, DNP Unavailable [phone] Vignesh Pickens MD Primary Care Provider [phone] Encounter Details Date Type Department Care Team [...] any time in the past 12 m [facility], were you homeless or living in a [...] drink first t rodríguez in the morning (EYE-ARMY MANAGER) to steady your nerves or to [...] Office Visit [facility] [address] [place] [address] Cayla Erazo, CDL SERVICE TECHNICIAN, DNP [address] [place] [address] 05/16/2025 8:00 AM EDT Office Visit [facility] [place] [address] [facility], [address] [place] [address] Karly Gracia MD [address] [place] [address] 06/07/2025 1:00 PM EDT Office Visit [facility] [address] [facility] [address] [facility] [place] [address] Tom Iraheta MD [address] [place] [address] documented as of this encounter [...] as of this encounter Care Teams Elevator Service Mechanic Relationship Specialty Start Date End Date Vignesh Pickens MD [address] [place] [address] PCP - General 12/31/24 Cayla Erazo APRN, [facility] [address] [place] [address] Nurse Practitioner Urology 12/20/24 documented as of this encounter
--- OUTSIDE RECORDS SUMMARY | 2025-04-05 06:59 | XMS_ITS | Encounter Summary ---
Author Organization [facility] Address [address] [place] [address] Care Team Providers Care Support Merchandiser Name Role Phone Cayla Erazo APRN, DNP Unavailable [phone] Vignesh Pickens MD Primary Care Provider [phone] Encounter Details Date Type Department Care Team (Late st Contact Info) Description 03/04/2025 Orders Only External Location [address] [place] [address] Provider, External Social History Tobacco Use Types [...] first t rodríguez in the morning (EYE-CLINICAL RESEARCH MANAGER) to steady your nerves or to [...] Description 04/08/2025 9:20 AM EDT Office Visit [facility] [address] [place] [address] Cayla Erazo, AUTOMOBILE UPHOLSTERER, DNP [address] [place] [address] 05/16/2025 8:00 AM EDT Office Visit [facility] [place] [address] [facility], [address] [place] [address] Karly Gracia MD [address] [place] [address] 06/07/2025 1:00 PM EDT Office Visit [facility] [address] [place] [address] Tom Iraheta MD [address] [place] [address] documented as of this encounter Procedures Procedure Name Priority Date/Time Associated Diagnosis Comments CT OUTSIDE IMAGES 03/04/2025 6:08 AM EDT documented in this encounter Results * CT OUTSIDE IMAGES (03/04/2025 6:08 AM EDT) Anatomical Region Laterality Modality Computed Tomogra phy 03/04/2025 6:08 AM EDT us External Provider IMG CT [...] documented as of this encounter Care Teams Support Merchandiser Relationship Specialty Start Date End Date Vignesh Pickens MD [address] [place] [address] PCP - General 12/31/24 Cayla Erazo APRN, [facility] [address] [place] [address] Nurse Practitioner Urology 12/20/24 documented as of this encounter
--- OUTSIDE RECORDS SUMMARY | 2025-04-05 06:59 | XMS_ITS | Encounter Summary ---
Author Organization [facility] Address [address] [place] [address] Care Team Providers Care Title I Teacher Name Role Phone Cayla Erazo APRN, DNP Unavailable [phone] Vignesh Pickens MD Primary Care Provider [phone] Encounter Details Date Type Department Care Team (Late st Contact Info) Description 02/22/2025 Orders Only External Location [address] [place] [address] Jordan Carl MD [address] [place] [address] [place] [address] Social History Tobacco Use Types [...] drink first t rodríguez in the morning (EYE-FILM AND VIDEO GRAPHICS DESIGNER) to steady your nerves or to [...] Office Visit [facility] [address] [place] [address] Cayla Erazo, INFANTRY ASSAULTMAN, DNP [address] [facility] [address] [place] [address] 05/16/2025 8:00 AM EDT Office Visit [facility] [place] [address] [facility], [address] [place] [address] Karly Gracia MD [address] [place] [address] 06/07/2025 1:00 PM EDT Office Visit [facility] [address] [place] [address] Tom Iraheta MD [address] [place] [address] documented as of this encounter [...] documented as of this encounter Care Teams Title I Teacher Relationship Specialty Start Date End Date Vignesh Pickens MD [address] [place] [address] PCP - General 12/31/24 Cayla Erazo APRN, DNP [address] [place] [address] Nurse Practitioner Urology 12/20/24 documented as of this encounter
--- OUTSIDE RECORDS SUMMARY | 2025-04-05 06:59 | XMS_ITS | Encounter Summary ---
Author Organization [facility] Address [address] [place] [address] Care Team Providers Care Biologist Aide Name Role Phone Cayla Erazo APRN, DNP Unavailable [phone] Vignesh Pickens MD Primary Care Provider [phone] Encounter Details Date Type Department Care Team [...] first t rodríguez in the morning (EYE-SUPERVISOR INSPECTION AND TESTING) to steady your nerves or to get [...] Office Visit [facility] [address] [place] [address] Cayla Erazo APRN, DNP [address] [place] [address] 05/16/2025 8:00 AM EDT Office Visit [facility] [place] [address] [facility], [address] [place] [address] Karly Gracia MD [address] [place] [address] 06/07/2025 1:00 PM EDT Office Visit [facility] [address] [facility] [address] [place] [address] Tom Iraheta MD [address] [place] [address] documented as of this encounter [...] documented as of this encounter Care Teams Biologist Aide Relationship Specialty Start Date End Date Vignesh Pickens MD [address] [place] [address] PCP - General 12/31/24 Cayla Erazo APRN, DNP [address] [place] [address] Nurse Practitioner Urology 12/20/24 documented as of this encounter
--- OUTSIDE RECORDS SUMMARY | 2025-04-05 07:00 | XMS_ITS | Encounter Summary ---
Author Organization [facility] Address [address] [place] [address] Care Team Providers Care Cupola Liner Name Role Phone Cayla Erazo APRN, DNP Unavailable [phone] Vignesh Pickens MD Primary Care Provider [phone] Encounter Details Date Type Department Care Team (Late st Contact Info) Description 03/01/2025 Telephone [facility] [address] [address] Nohemy, Surgeon, [address] [place], [place] [id number] Social History Tobacco Use Types Packs/Day Years [...] in the past 12 m [facility], were you homeless or living in [...] drink first t rodríguez in the morning (EYE-RESOURCING CONSULTANT) to steady your nerves or to [...] No 03/01/2025 8:00 AM EDT Gayle Light, JIMI 2. Non-Specific Active Suici annie Thoughts (Past 1 Month) No 03/01/2025 8:00 AM EDT Andria Light RN 6. Suicidal Behavior (Lifetime) No 8:00 AM EDT Gayle Light, JIMI documented as of this encounter Plan of Treatment Upcoming Encounters Date Type Department Care Team (Late st Contact Info) Description 04/08/2025 9:20 AM EDT Office Visit [facility] [address] [place] [address] Cayla Erazo, ATHLETICS TEACHER, DNP [address] [place] [address] 05/16/2025 8:00 AM EDT Office Visit [facility] [place] [address] [facility], [address] [place] [address] Karly Gracia MD [address] [place] [address] 06/07/2025 1:00 PM EDT Office Visit [facility] [address] [facility] [address] [place] [address] Tom Iraheta MD [address] [place] [address] documented as of this encounter [...] documented as of this encounter Care Teams Cupola Liner Relationship Specialty Start Date End Date Vignesh Pickens MD [address] [place] [address] PCP - General 12/31/24 Cayla Erazo APRN, [facility] [address] [facility] [address] [place] [address] Nurse Practitioner Urology 12/20/24 documented as of this encounter
[2025-04-05 07:03] LABS: Hematocrit 28.7 % (37.0-47.0); Hemoglobin 9.0 g/dL (12.2-16.2); Immature Granulocytes % 0.2 %; Mean Corpuscular HGB Conc 31.4 g/dL (31.8-35.4); Mean Corpuscular Hemoglobin 26.3 pg (27.0-31.2); Mean Corpuscular Volume 83.9 fl (81-99); Nucleated Red Blood Cells % 0 %; Platelet Count 261 K/mm3 (142-424); Red Blood Count 3.42 M/mm3 (4.20-5.40); Red Cell Distribution Width-SD 49.0 fL; White Blood Count 5.4 K/mm3 (4.8-10.8)
== END 2025-04-05 23:59 | disposition home or self-care (01) ==
PROVIDERS: PCP Nurse Practitioner Family; Visit Provider Nurse Practitioner Family
DX: R31.0 Gross hematuria (principal)
CPT/HCPCS: 36415; 85025

== ENCOUNTER 2025-04-28 20:48 | Outpatient (CLI) | payer MEDICARE, MEDICAID, SELFPAY ==
--- OUTSIDE RECORDS SUMMARY | 2017-02-21 10:50 | XMS_ITS | Continuity of Care Document ---
Author Organization [address] [place] [address] Address [address] [facility] [address] [place] [address] Phone Care Team Providers Care Padded Products Finisher Name Role Phone SkAndrei ivey DPM Unavailable Unavailable Procedures Procedure Date DEBRIDEMENT OF NAIL(S) BY ANY METHOD(S); OR MORE DEBRIDEMENT OF NAIL(S) BY ANY METHOD(S); OR MORE DEBRIDEMENT OF NAIL(S) BY ANY METHOD(S); 6 OR MORE Advance Directives Directive Yes / No Effective Date File Name No Information Encounters Encounter Description Practice Location Reason(s) For Visit Diagnoses Date Provider Providers Copied on Encounter [address], [address] [place] [address], [id number], tel:[phone] [facility] Tinea unguiumType 1 diabetes mellitus with hyperglycemia Pain in right toe(s)Pain in left toe(s) 7 Gomez Forbes. [address] [facility] [address] [place] [address], [id number], [place]. tel:[phone], [address] [facility] [address], [place], [place], [id number], tel:[phone] [facility] Nail Pain (chief complaint) Tinea unguiumPain in right toe(s)Pain in left toe(s) 7 Gomez Forbes. [address] [facility] 300, [place], [place], [id number], [place]. tel:[phone] [place] [address], [address] [facility], [place], [place], [id number], tel:[phone] [facility] Nail Pain (chief complaint) Tinea unguiumPain in right toe(s)Pain in left toe(s)Type 1 diabetes mellitus with hyperglycemia 7 Gomez [place]. [address] [facility] [address], [place], [place], [id number], . tel:[phone] Family History Family Member Type Diagnosis Age At Onset No Information Payers Payer name Insurance type Covered libertarian ID Authoriza tion(s) Medicare [facility] [id number] Medicaid [facility] [id number] Social History Type Description Quantity Date Captured [...]
--- OUTSIDE RECORDS SUMMARY | 2025-02-22 18:13 | XMS_ITS | Encounter Summary ---
Author Organization [facility] Address [address] [id number] Care Team Providers Care Edger Machine Setter Name Role Phone Cayla Erazo APRN, DNP Unavailable [phone] Vignesh Pickens MD Primary Care Provider [phone] Reason for Visit * Reason Comments Altered Mental Status * Auth/Cert (Routine) Specialty Diagnoses / Procedures Referred By Contac t Referred To Contact Diagnoses Sepsis (CMS/HCC) UTI, CKD, Hyponatremia, COPD exacerbation Bobby Parra MD [address] [place] [address] Phone: tel: fax: P[facility] A Inpatient [address] [place] [address] Referral ID Status Reason Start Date Expiration Date Visits Re quested Visits Authorized [id number] 1 1 Encounter Details Date Type Department Care Team (Latest Contact Info) Description 02/22/2025 6:13 PM EDT - 03/02/2025 11:04 AM EDT Hospital Encounter P[facility] A Inpatient [address] [place] [id number] Luda Morton MD [address] [place] [address] Bobby Parra MD [address] [place] [address] Luda Ralph MD [address] [place] [address] Ludy Hill MD [address] [facility] [address] [place] [address] Madonna Singleton MD [address] [place] [address] Acute respiratory failure with hypoxia and hypercapnia (Primary Dx); Erie coma scale total score 9-12, at arrival to emergency department; Acute cystitis without hematuria; Acute respiratory failure with hypercapnia; COPD exacerbation (CMS/HCC); Acute kidney injury superimposed on CKD (CMS/HCC); Chronic kidney disease, stage 3a (CMS/HCC); Hyponatremia; Acute encephalopathy; Sepsis with encephalopathy without septic shock, due to unspecified organism (CMS/HCC); Chronic diastolic (congestive) heart failure ([facility]/HCC); 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 Discharge Disposition: Senior Living Facility Social History Tobacco Use Types Packs/Day [...] any time in the past 12 m [facility], were you homeless or [...] drink first t rodríguez in the morning (EYE-REPAIRER SASH AND DOOR) to steady your nerves or to get [...] Anthony Vaughn Discharge Facility/Level of Care Needs: 3-Senior Living Facility Current Outpatient/Agency/Support Group: residential facility Transportation Anticipated: ([facility]) other (see comments) Outpatient/Agency/Support Group Needs: residential facility Transportation Concerns: none Concerns to be Addressed: discharge planning Readmission Within the Last 30 Days: other (see comments) Patient/Family Anticipated Services at Transition: residential rehabilitation services Patient/Family Anticipates Transition to: long-term [...] Care Transition Intervention: Promote Activity and Functional [place] Flowsheets Taken 03/02/2025 08 by Gayle Light [...] EDT Patient discharged at approximately 1040 via [facility] wheelchair transport. Report called to JHONNY Hawkins at [facility] in [place]. All appropriate paperwork and personal belongings sent withpatient. * Lawanda [facility] - Gayle Light RN - 03/02/2025 9:03 AM EDT Images from the original note were not included. [address] Sepsis Sepsis is a very serious condition. [...] (ICU). Last Reviewed Date: 2023 00:00:00 ?? 5914-6750 [employer]. All rights reserved. This information is not intended as a substitute for professional medical care. Always follow your healthcare professional's instructions. * Lawanda [facility] - Gayle Light RN - 03/02/2025 9:03 AM EDT Images from the original note were not included. [id number] Discharge Instructions for Acute Kidney Injury You [...] tiredness Last Reviewed Date: 2022 00:00:00 ?? 7803-6891 [employer]. All rights reserved. This information is not [...] Pickens MD [address] / [place] [address] Referring provider name and address: Jordan Carl MD [address] [place] [address] [place] [address] Chief Concern, Brief History of Present Illness, [...] negative infectious workup. She was extubated to DE w/o complications on 02/24/25. Currently saturating well [...] 120 at OSH, 125 on arrival to [facility] - Serum osm wnl, urine osm 408 [...] Your Medications These medications were sent to [facility] - Jeanette RENETTA Reid - [facility] [place] [address] fentaNYL 12 MCG/HR naloxone 4 mg/0.1 mL [...] Resolved Hospital Problems Hospital * (Principal) Sepsis ([facility]) Post Discharge Instructions Take [facility] as precribed Outpatient Follow-Up Future Appointments Date Time Provider Department Center 03/07/2025 10:00 AM Doug Chapman MD [facility] 03/27/2025 10:30 AM [facility] 3 USGSGSH [facility] 03/27/2025 11:50 AM [facility] FAMILY PRACTITIONER LABGSMOB None 03/27/2025 1:00 PM Cayla Erazo APRN, [place] UROGSHMOB [facility] 05/16/2025 8:00 AM Karly Gracia MD CARGSMOB [facility] 06/07/2025 1:00 PM Tom Iraheta MD [...] Note Eileen May 64 y.o. female CSN: [id number] Admission: 02/22/2025 6:13 PM Primary Problem: Sepsis [...] Chair transport scheduled today at 9am To: [facility] Report: [phone] Discharge Summary fax: [phone] Escribe new meds/controls to: [facility] will remain available through discharge if needs arise. Daniela Thomas CLINICAL EDUCATION ACADEMIC COORDINATOR, REMELT FURNACE EXPEDITER Toolmaker * Gayle De León RN - 03/02/2025 8:44 AM EDT Images from the original note were not included. [id number] Acute Kidney Injury: Care Instructions Overview Acute [...] this instruction, always ask your healthcare professional. [employer] disclaims any warranty or liability for your use of this information. ?? [id number] [employer]. * Lawanda Katerine - Gayle Light, RN - 03/02/2025 8:44 AM EDT Images from the original note were not included. 35405 Urinary Tract Infections in Women Urinary tract [...] started. Last Reviewed Date: 2023 00:00:00 ?? [id number] [employer]. All rights reserved. This information is not [...] Anthony Vaughn Discharge Facility/Level of Care Needs: 3-Senior Living Facility Current Outpatient/Agency/Support Group: residential facility Transportation Anticipated: ([facility]) other (see comments) Outpatient/Agency/Support Group Needs: residential facility Transportation Concerns: none Concerns to be Addressed: discharge planning Readmission Within the Last 30 Days: other (see comments) Patient/Family Anticipated Services at Transition: residential rehabilitation services Patient/Family Anticipates Transition to: long-term [...] Anthony Vaughn Discharge Facility/Level of Care Needs: 3-Senior Living Facility Current Outpatient/Agency/Support Group: residential facility Transportation Anticipated: ([facility]) other (see comments) Outpatient/Agency/Support Group Needs: residential facility Transportation Concerns: none Concerns to be Addressed: discharge planning Readmission Within the Last 30 Days: other (see comments) Patient/Family Anticipated Services at Transition: residential rehabilitation services Patient/Family Anticipates Transition to: long-term [...] Ongoing, Progressing Intervention: Promote Activity and Functional [place] Flowsheets Taken 03/01/2025 0800 by Gayle Light [...] negative infectious workup. She was extubated to DE w/o complications on 02/24/25. Currently saturating well [...] resumed home meds continue Mirabegron HFrEF 2/2 [facility] - 11/2024 LVEF 35-40% - Current GDMT: [...] 120 at OSH, 125 on arrival to [facility] - Serum osm wnl, urine osm 408 [...] meds today F: soft and bite sized, PROFESSOR OF SURGERY eval Code Status: Assume Full Medically Ready for Discharge: * Progress Notes - Anthony Vaughn - 03/01/2025 9:27 AM EDT Case Management Discharge Note Eileen May 64 y.o. female CSN: [id number] Admission: 02/22/2025 6:13 PM Primary Problem: Sepsis (CMS/HCC) Primary Track Moving Machine Operator: Primary Caregiver: Private caregiver Assistance Available at Discharge: Current Outpatient/Agency/Support Group: residential facility Availability of Care Givers (#Hours): 24 hours Family/Track Moving Machine Operator(s) Willingness Assessed to care for patient at home: Yes Family/Track Moving Machine Operator(s) Readiness Assessed to care for patient at home: Yes Housing Circumstances-Z Codes: Housing Circumstances (select all that apply): None Applicable Discharge Facility/Level of Care Needs: Discharge Facility/Level of Care Needs: 3-Senior Living Facility Patient/Family Anticipated Services at Transition: Patient/Family Anticipated Services at Transition: residential, rehabilitation services DME/Equipment Needed after Discharge: Equipment [...] Notice Recieved By: Pt at bedside Follow-up: [facility] [address] [place], [place] [id number] Follow up Vignesh Pickens MD [address] [id number] Follow up Discharge Transportation: Transportation Anticipated: other (see comments) ([facility]) Transportation Home at Discharge: Other(Comment) ([facility]) Has discharge transport been arranged?: Yes What day is the transport expected?: 03/01/25 What time is the transport expected?: 0900 Follow Up Transport: Transportation Needed to Follow up Appoinments: Other(Comment) ([facility]) Additional Comments: Plan of care reviewed with Pt's care team; Pt is medically ready for discharge. Pt is a resident [facility] in [place]. [facility] Pt meets 300% fpg. Weekend CM to fax Pt's discharge summary to [phone], and bedside RN to call report to [phone]. Facility uses [facility] in [place]. SW met with Pt at bedside, who [...] negative infectious workup. She was extubated to DE w/o complications on 02/24/25. Currently saturating well [...] PAL MURF, Bcx NGTD S/p extubation 02/24, DE for SPO2 92%+ PLAN: Supportive care for [...] resumed home meds continue Mirabegron HFrEF 2/2 [facility] - 11/2024 LVEF 35-40% - Current GDMT: [...] 120 at OSH, 125 on arrival to [facility] - Serum osm wnl, urine osm 408 [...] meds today F: soft and bite sized, PROFESSOR OF SURGERY eval Code Status: Assume Full Medically Ready for Discharge: * Progress Notes - Anthony Vaughn - 02/28/2025 11:11 AM EDT Case Management Adult Progress Note Eileen May 64 y.o. female CSN: [id number] Admission: 02/22/2025 6:13 PM Primary Problem: Sepsis (CMS/HCC) Anticipated Discharge Date: TBD Has Discharge Plans Changed? No Additional Comments Plan of care reviewed with Pt's care team; Pt is not medically ready for discharge. Dental extraction planned for today. Anticipate discharge readiness tomorrow. Pt is a resident at [facility]. SW sent updated notes to Pt's facility [...] comments) Current Outpatient/Agency/Support Group: inpatient rehabilitation facility OT,PT,PROFESSOR OF SURGERY Anticipated Changes Related to Illness: inability to care for self Transportation Anticipated: medical transport Outpatient/Agency/Support Group Needs: inpatient rehabilitation facility Transportation Concerns: none Current Discharge Risk: physical impairment Concerns to be Addressed: basic needs discharge planning Readmission Within the Last 30 Days: previous discharge plan unsuccessful Patient/Family Anticipated Services at Transition: case resolution specialist durable medical equipment rehabilitation services Patient/Family Anticipates [...] comments) Current Outpatient/Agency/Support Group: inpatient rehabilitation facility OT,PT,PROFESSOR OF SURGERY Anticipated Changes Related to Illness: inability to care for self Transportation Anticipated: medical transport Outpatient/Agency/Support Group Needs: inpatient rehabilitation facility Transportation Concerns: none Current Discharge Risk: physical impairment Concerns to be Addressed: basic needs discharge planning Readmission Within the Last 30 Days: previous discharge plan unsuccessful Patient/Family Anticipated Services at Transition: case resolution specialist durable medical equipment rehabilitation services Patient/Family Anticipates [...] Ongoing, Progressing Intervention: Promote Activity and Functional [place] Flowsheets Taken 02/28/2025 0816 by Gayle Light [...] negative infectious workup. She was extubated to DE w/o complications on 02/24/25. Mentating well back [...] negative infectious workup. She was extubated to DE w/o complications on 02/24/25. Events of past [...] Mental status is at baseline. Results: Lab [place] today CBC WBC ?? Hb ?? Plt [...] in the posterior aspect of tooth #31. Moody wear in tooth number 8, 9 and [...] negative infectious workup. She was extubated to DE w/o complications on 02/24/25. #Acute hypoxic respiratory [...] MURF, Bcx NGTD - S/p extubation 02/24, DE for SPO2 92%+ PLAN: - Supportive care [...] home meds - continue Mirabegron #HFrEF 2/2 [facility] - 11/2024 LVEF 35-40% - Current GDMT: [...] 120 at OSH, 125 on arrival to [facility] - Serum osm wnl, urine osm 408 [...] meds today F: soft and bite sized, PROFESSOR OF SURGERY eval A: oxy, acetaminophen, fentanyl patch (home [...] Chuy Graham DO Internal Medicine PGY-2 Pager [phone]; Epic Chat preferred Procedures [1] [2] PRN [...] negative infectious workup. She was extubated to DE w/o complications on 02/24/25. During her hospital [...] being transferred from ICU team to [facility] Team 14 Major Active Problems: Currently [...] home meds - continue Mirabegron #HFrEF / [facility] - 11/2024 LVEF 35-40% - Current GDMT: [...] meds today F: soft and bite sized, PROFESSOR OF SURGERY eval A: oxy, acetaminophen, fentanyl patch (home [...] 120 at OSH, 125 on arrival to [facility] - Serum osm wnl, urine osm 408 [...] Lunch Supplement frequency: Dinner Lunch supplement: Tony Newberry Quantity for Lunch of Tony Newberry Packet One Dinner supplement: Tony Fruit Punch [...] Chuy Graham DO Internal Medicine PGY-2 Pager [phone]; Epic Chat preferred * Care Plan - [...] adjusted per tolerance Taken 02/23/2025 1254 by eTmi Mao RN Sleep/Rest Enhancement: consistent schedule promoted [...] Ongoing, Progressing Intervention: Promote Activity and Functional [place] Flowsheets (Taken 02/26/2025 1750 by Bassem Jay, [...] Ongoing, Progressing Intervention: Promote Activity and Functional [place] Flowsheets (Taken 02/26/2025 1750) Activity Assistance Provided: assistance refused education provided Self-Care Promotion: independence encouraged * Progress Notes - Eileen Ortega - 02/26/2025 11:16 AM EDT Physical Therapy Evaluation Patient Name: Eileen May Today's Date: 02/26/2025 PT Discharge Recommendations: Subacute rehab Equipment Recommended: Defer to facility History Eileen May is 64 y.o. female admitted 02/22/2025 for work-up of Sepsis ([facility]). Problem List Active Hospital Problems Diagnosis Date Noted Sepsis ([facility]) 02/22/2025 Procedures Past 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 Patient has a past medical history of Anxiety, Breast cancer, Cerebral infarction, unspecified ([facility]), COPD (chronic obstructive pulmonary disease) ([facility]), Depression, Fibromyalgia, History of falling, Hypertension, Personal [...] relaxing. Participants in Care Family/Caregiver Present: No Footwear Machinery Instructor: Not Applicable Presentation Oxygen Therapy: None (Room [...] session; RN aware Home Living/Set-up Home Type: senior care facility Home Adaptive Equipment: Wheelchair-manual, Hospital bed [...] From: Caregiver Level of Mobility: Wheelchair/Scooter Mobility [place]: Independent wheelchair propulsion History of Falls: No ADL Performance: Needs assistance Bathing: Needs assist Upper Body Dressing: Independent Lower Body Dressing: Needs assist Grooming: Independent Toileting: Needs assist Eating: Independent Home Management Skills: Unable to perform Patient/Family Goals Return home at [facility]. Objective Pain Pt reports having some tooth [...] change. Bed Mobility Exam: Rolling/Turning Level of [place]: Moderate assist (50% patient effort) (bilaterally) Physical/Nonphysical Assist: Verbal Cues, Minimal cues, 1 person + 1 person to manage equipment Assistive Device: Other (drawsheet) Bed Mobility Exam: Scooting/Bridging Level of [place]: Maximum assist (25% patient's effort) (to head [...] female admitted 02/22/2025 for work-up of Sepsis ([facility]). Hospital Course 1. Erie coma scale total score 9-12, at arrival to emergency department 2. Acute cystitis without hematuria 3. Acute respiratory failure with hypercapnia 4. COPD exacerbation ([facility]) Procedures Past 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 Patient has a past medical history of Anxiety, Breast cancer, Cerebral infarction, unspecified ([facility]), COPD (chronic obstructive pulmonary disease) ([facility]), Depression, Fibromyalgia, History of falling, Hypertension, Personal [...] date Participants in Care Family/Caregiver Present: No Footwear Machinery Instructor: Not Applicable Presentation Oxygen Therapy: None (Room [...] treatment as tolerated Home Living/Set-Up Home Type: senior care facility Home Adaptive Equipment: Wheelchair-manual, Hospital bed [...] From: Caregiver Level of Mobility: Wheelchair/Scooter Mobility [place]: Independent wheelchair propulsion History of Falls: No [...] of treatment space BED MOBILITY Level of [place] Physical/Non- physical Assist Adaptive Equipment Utilized Rolling/ [...] to rot this date. TRANSFERS Level of [place] Physical/Non- physical Assist Adaptive Equipment Utilized Sit to Stand Stand to sit Bed to Chair Toilet Transfer Shower Transfer Interventions Patient politely deferring transfer tasks this date; educated on use of amputee slingfor increased safety as patient expresses nervousness with transfer tasks. FUNCTIONAL MOBILITY Level of [place] Distance Adaptive Equipment Utilized Ambulation Comments Patient does not ambulate at baseline* ADL / Self-Care Tasks Level of [place] Adaptive Equipment Utilized Interventions Feeding Setup, Standby [...] increased patient rest/education throughout session. Standardized Assessments [facility] 6-Click Daily Activities Help from Other: Don/Doff Regular Lower Body Clothings: Total Help From Other: Bathing: A lot Help From Other: Toileting: Total Help From Other: Don/Doff Upper Body Clothings: Little Help From Other: Grooming: Little Help From Other: Eating Meals: None [facility] 6 Click - Daily Activities Score: 14 [...] negative infectious workup. She was extubated to DE w/o complications on 02/24/25. Events of past [...] negative infectious workup. She was extubated to DE w/o complications on 02/24/25. #Acute hypoxic respiratory [...] MURF, Bcx NGTD - S/p extubation 02/24, DE for SPO2 92%+ PLAN: - Supportive care [...] 120 at OSH, 125 on arrival to [facility] - Serum osm wnl, urine osm 408 [...] meds today F: soft and bite sized, PROFESSOR OF SURGERY eval A: oxy, acetaminophen, fentanyl patch (home [...] Chuy Graham, DO Internal Medicine PGY-2 Pager [phone]; Epic Chat preferred Procedures [1] [2] PRN [...] -Schedule patient to follow-up on 5th [address] [facility] for extraction of #15 underlocal anesthesia. -we will arrange transport to clinic from hospital bed. - Diet: Regular; NPO at midnight prior to surgery -For extraction of one tooth it is not warranted to stop current anticoagulation therapy. -Follow current recommendations of Primary team. [facility] Department of Oral & Maxillofacial Surgery [address] [facility] Fifth Floor, [address] [place] [address] Dispo: Continue Current Level of Care Bert [...] BREAST SURGERY N/A Breast Surgery Reconstruction from [facility] BREAST SURGERY N/A Breast Surgery from [facility] CHOLECYSTECTOMY N/A Cholecystotomy from [facility] KIDNEY SURGERY N/A Kidney Surgery from [facility] KNEE SURGERY N/A Knee Surgery from [facility] MASTECTOMY N/A Breast Surgery Mastectomy from [facility] SHOULDER SURGERY Right Shoulder Surgery Right from [facility] [3] No current facility-administered medications on file [...] is unaware of what reaction. Pedi-Pre Tape Reinbeck [Wound Dressing Adhesive] Rash Wellbutrin [Bupropion] Rash Cosigned by Jin Rodriugez DDS at 02/26/2025 10:04 AM EDT Associated attestation - Jin Rodriguez DDS - 02/26/2025 10:04 AM EDT I reviewed with Dr. Bowling and agree with the plan * Progress Notes - Sarah Rand - 02/25/2025 3:11 PM EDT Case Management Adult Initial Progress Note Eileen Chayito May 64 y.o. female CSN: [id number] Admission: 02/22/2025 6:13 PM Primary Problem: Sepsis (CMS/HCC) Customer Logistics Manager reviewed chart and spoke with patient to complete this Initial Case Management Assessment. PCP: Vignesh Pickens MD Emergency Contact: Extended Emergency Contact Information Primary Emergency Contact: Val Howell Mobile Relation: Sister Footwear Machinery Instructor needed? No Insurance: Primary Visit Coverage Payer Plan Sponsor Code Group Number Group Name MEDICARE MEDICARE A & B Primary Visit Coverage Subscriber Subscriber ID Subscriber Name Subscriber [facility] Subscriber Address [id number] EILEEN MAY [id number] [address] Secondary Visit Coverage Payer Plan Sponsor Code Group Number Group Name MEDICAID-[facility] MEDICAID TRADITIONAL Secondary Visit Coverage Subscriber Subscriber ID Subscriber Name Subscriber N Subscriber Address [id number] EILEEN MAY [phone] [place] [address] Patient information: Primary Caregiver: Private caregiver Support System: Immediate family Daily Living Activities: Functional Status: Moderate assistance Living Arrangements: Group Home Type of Residence: senior care facility [facility] [place] [address] Current DME: Equipment Currently Used at Home: [...] living facility Discharge Transport: Follow Up Transport: [facility] provides follow up transportation. Patient will need assistance with transportation when medically stable. Home Health / Home Infusion / Outpatient Dialysis Services: None reported. Living Will/Advance Directive/Power of Edger Feeder /Guardian: None reported. Sister/Vardaman is NOK. Additional Comments: Case Management will [...] Note Eileen May 64 y.o. female CSN: [id number] Room/Bed 121/121A Nutrition evaluation type: follow-up Reason [...] 36.76 Weight Evaluation: Obese-Class 2 (BMI 35-39.9) [place] Body Weight (kg): 48.55 (adjusted for left AKA) Percent [place] Body Weight: 198 Adjusted Body Weight (kg): [...] oz) Estimated Needs: Kcal/ K-30 Kcal Provided: 1443-8763 Kcal Needs Based On: Adjusted weight (60.5 kg) Gm Protein/ Kg : 1.2-1.5 Protein Provided: 73-91 Protein Needs Based On: Adjusted weight (60.5 kg) Fluid Provided: 1 ml/kcal or per MD team Metabolic Cart Study Results: Current Nutrition Intake: Diet Supplements: None Diet Order: Adult Diet Diet Texture: Full Liquid Adult Carbohydrate Restriction: Consistent CHO 2 (2192-5351 [place], 80 g/meal) Percent Meals Eaten (%): 50% x 1 meal Diet Experience and Nutrition History: Diet Education Provided: Will monitor Pertinent home medications: ascorbic acid, calcitriol, cholecalciferol, cyanocobalamin, ferrous sulfate, insulin, loperamide, magnesium oxide, MVI, ondansetron, Percocet, pantoprazole Rastafarian needs: Nutrition Focused Physical Exam: Unable to Complete Exam: Patient unable to participate Physical exam performed on (date): Assessment of Malnutrition: Nutrition Problem: Inadequate oral intake related to current clinical condition as evidenced by full liquid diet. Status of Nutrition Diagnosis: Ongoing Nutrition Interventions and Recommendations: - Advance diet as appropriate per PROFESSOR OF SURGERY - CHO 2 diet - Add Boost [...] BREAST SURGERY N/A Breast Surgery Reconstruction from [facility] BREAST SURGERY N/A Breast Surgery from [facility] CHOLECYSTECTOMY N/A Cholecystotomy from [facility] KIDNEY SURGERY N/A Kidney Surgery from [facility] KNEE SURGERY N/A Knee Surgery from [facility] MASTECTOMY N/A Breast Surgery Mastectomy from [facility] SHOULDER SURGERY Right Shoulder Surgery Right from [facility] [3] atorvastatin, 40 mg, Oral, Nightly baclofen, [...] negative infectious workup. She was extubated to DE w/o complications on 02/24/25. Events of past 24 hours: - no acute events overnight - was extubated 02/24/25 to DE, doing well, currently above goal on 2L [...] negative infectious workup. She was extubated to DE w/o complications on 02/24/25. #Acute hypoxic respiratory [...] Bcx NGTD PLAN: - S/p extubation 02/24, DE for SPO2 92%+ - Supportive care for [...] meds today - on Mirabegron #HFrEF 2/2 [facility] - 11/2024 LVEF 35-40% - Current GDMT: [...] 120 at OSH, 125 on arrival to [facility] - Serum osm wnl, urine osm 408 [...] meds today F: full liquid carb 2, PROFESSOR OF SURGERY eval A: oxy, acetaminophen, prn dilaudid IV, [...] Chuy Graham DO Internal Medicine PGY-2 Pager [phone]; Epic Chat preferred Procedures [1] [2] PRN [...] Note Eileen May 64 y.o. female CSN: [id number] Room/Bed 121/121A Nutrition evaluation type: assessment Reason [...] Method: Nasal cannula Erie Coma Scale Score: 11 Ray Scale Score: [...] 36.39 Weight Evaluation: Obese-Class 2 (BMI 35-39.9) [place] Body Weight (kg): 48.55 (adjusted for left AKA) Percent [place] Body Weight: 198 Adjusted Body Weight (kg): [...] oz) Estimated Needs: Kcal/ K-30 Kcal Provided: 8861-2050 Kcal Needs Based On: Adjusted weight (60.5 [...] loperamide, magnesium oxide, MVI, ondansetron, Percocet, pantoprazole Rastafarian needs: Nutrition Focused Physical Exam: Unable to Complete Exam: Weekend coverage Physical exam performed on (date): pending Assessment of Malnutrition: Nutrition Problem: Inadequate oral intake related to current clinical condition as evidenced by GCS 11, NPO diet order. Status of Nutrition Diagnosis: New Nutrition Interventions and Recommendations: PO diet advancement per PROFESSOR OF SURGERY/MD team. TF recs if warranted: Diabetisource AC [...] BREAST SURGERY N/A Breast Surgery Reconstruction from [facility] BREAST SURGERY N/A Breast Surgery from [facility] CHOLECYSTECTOMY N/A Cholecystotomy from [facility] KIDNEY SURGERY N/A Kidney Surgery from [facility] KNEE SURGERY N/A Knee Surgery from [facility] MASTECTOMY N/A Breast Surgery Mastectomy from [facility] SHOULDER SURGERY Right Shoulder Surgery Right from [facility] [3] atorvastatin, 40 mg, Nasogastric, Nightly clopidogrel, [...] limited positioning supports utilized pressure points protected oyku-df-oqglin areas padded tubing/devices free from skin contact [...] continued concern or difficult irrigating, contact Urology occupational therapist assistants. #hypovolemic Hyponatremia, resolved - baseline Na 130-135 - Na 120 at OSH, 125 on arrival to [facility] - Serum osm wnl, urine osm 408 [...] Ralph. Boyd Romano. Internal Medicine PGY-2 Pager [phone] Critical Care Performed by: Luda Ralph MD [...] (Taken 02/23/2025 1254 by Temi Mao, RN) Trust Relationship/Rapport: care explained Intervention: Protect Skin and Joint Integrity Flowsheets (Taken 02/23/20251999) Body Position: left turned * Consults - Jake Sheets MD - 02/23/2025 11:51 AM EDTAssociated Order(s): Inpatient consult to Urology Inpatient consult to Urology Consult performed by: Jake Sheets MD Consult ordered by: Luda Ralph MD [facility] Urology Consult Note 02/23/25 Service [...] hydronephrosis and neurogenic bladder who presented to [facility] ED as a transfer from OSH [...] findings. Hospital Problem List: Principal Problem: Sepsis ([facility]) Assessment: Eileen May is a 64 y.o. [...] need to be upsized to a 20 Luxembourger catheter to allow for easier drainage. We [...] continued concern or difficult irrigating, contact Urology occupational therapist assistants. Jake Sheets MD Urology PGY-2 [1] Past [...] CKD (CMS/HCC); Chronic kidney disease, stage 3a ([facility]/HCC); Sepsis with encephalopathy without septic shock, due to unspecified organism ([facility]) Images from the original note were not [...] AMS with GCS 6-7 on arrival to [facility] therefore intubated for airway protection - pt [...] continued concern or difficult irrigating, contact Urology occupational therapist assistants. #Hyponatremia - baseline Na 130-135 - Na 120 at OSH, 125 on arrival to [facility] PLAN: - will continue to monitor BID [...] Chuy Graham, DO Internal Medicine PGY-2 Pager [phone]; Epic Chat preferred Critical Care Performed by: [...] Least Restrictive Safety Strategies Flowsheets (Taken 02/22/20252235) Continuous Improvement Specialist Protection: torso covered tubing secured Diversional Activities: [...] and AMS. Patient presented to OSH from [facility] due to concern for hyponatremia, encephalopathy and [...] exacerbation, given duonebs and azithromycin. Transferred to [facility] for higher level of care. On arrival to [facility] ED, patient GCS 6-7, VBG7.28/60/41, patient intubated [...] every 6 hours as needed. 01/17/20 Kati Womakc MD anastrozole (Arimidex) 1 MG chemo tablet [...] AMS with GCS 6-7 on arrival to [facility] therefore intubated for airway protection PLAN - [...] 120 at OSH, 125 on arrival to [facility] - will continue to monitor with q4h Na HFrEF 2/2 [facility] - 11/2024 LVEF 35-40% - Current GDMT: [...] Rachel Shipman MD PGY-3, Internal Medicine Pager: [phone] Procedures [1] Family History Problem Relation Name [...] bag 0.25 mg Intravenous q10 min PRN Fernley, Leon B, DO 0.25 mg at 02/22/251953 Or HYDROmorphone (Dilaudid) bolus from bag 0.5 mg Intravenous q10 min PRN Fernley, Leon B, DO 0.5 mg at 02/22/251926 hydromorphone 20 mg in NS 100 mL infusion (200 mcg/mL) 0.25-2 mg/hr Intravenous Titrated Fernley, Leon B, DO 1.25 mL/hr at 02/22/251926 0.25 mg/hr at 02/22/251926 ipratropium-albuterol (Duo-Neb) 0.5-2.5 mg/3 mL nebulizer solution 3 mL 3 mL Nebulization Once Fernley, Leon B, DO mupirocin (Bactroban) 2 % [...] evaluated the patient with the resident/fellow via [facility] ICU audio- visual support as available. I [...] CTHAP: no acute findings Steroids in ED [facility] ED -> transferred here. VBG completed [...] Status: She is disoriented. Comments: GCS 9 Erie Coma Scale Score: 11 ED Course & [...] Daily Order ID Start Status Ordering Provider [id number] 02/23/25 0800 Ordered MORTONLUDA Stevens 02/24/25 0600 [...] Continuous Order ID Start Status Ordering Provider [id number] 02/22/25 1859 Ordered LUDA MORTON [id number] 02/22/25 2000 Completed LUDA MORTON [id number] 02/23/25 0800 Ordered LUDA MORTON T 02/23/251999 Scheduled MORTONLUDA 02/24/25 0800 Scheduled MORTON, LUDA Cisneros 02/24/251999 Scheduled MORTON, LUDA T 02/25/25 0800 Scheduled MORTON, LUDA T 02/25/251999 Scheduled MORTON LUDA Cisneros 02/26/25 0800 Scheduled MORTON, LUDA Cisneros 02/26/251999 Scheduled MORTON, LUDA Cisneros Ordered MORTON LUDA Cisneros 02/22/251857 End Tidal co2 Monitoring Continuous Order ID Start Status Ordering Provider [id number] 02/22/251858 Ordered MORTONLUDA Stevens [id number] 02/22/251999 Completed MORTON LUDA Cisneros [id number] 02/23/25 08 Ordered MORTON LUDA Cisneros 02/23/251999 Scheduled MORTON LUDA Cisenros 02/24/25 0800 Scheduled MORTON LUDA Cisneros 02/24/251999 [...] mucosal integrityUntil discontinued Ordered LUDA MORTON 02/22/251857 Giddings teeth every 12 hours Until discontinued Ordered [...] gas gem PROCEDURE ONCE Final result POCT, IFEOMA PROVIDER 02/22/25 1835 POCT Venous Blood Gas [...] Free T4, Plasma STAT In process MORTONLUDA CUMMINGS 02/22/25 1831 Drug abuse screen STAT Acknowledged MORTONLUDA CUMMINGS 02/22/25 1817 POCT glucose meter PROCEDURE ONCE Final result POCT, GENERIC PROVIDER ED Course as of 02/22/252199Feb 22, 20251955 CT head from outside hospital shows no acute intracranial process but multiple chronic infarcts and oecc-ac-woittqui small-vessel disease. Additionally CT angio of the chest does not show any pulmonary emboli. Lung bases are clear. There is some bilateral hydronephrosis of the kidneys and mode rate bladder wall thickening and some diverticulosis in the CT of the abdomen and pelvis. Otherwiseno acute intra-abdominal process. [MJ] 1957 On initial [...] within normal ranges. Lactate also normal at [facility]. No further advanced imaging was required per [...] (cerebral infarction) COPD (chronic obstructive pulmonary disease) (CMS/[facility]) Depression Fibromyalgia History of falling [...] BREAST SURGERY N/A Breast Surgery Reconstruction from [facility] BREAST SURGERY N/A Breast Surgery from [facility] CHOLECYSTECTOMY N/A Cholecystotomy from [facility] KIDNEY SURGERY N/A Kidney Surgery from [facility] KNEE SURGERY N/A Knee Surgery from [facility] MASTECTOMY N/A Breast Surgery Mastectomy from [facility] SHOULDER SURGERY Right Shoulder Surgery Right from [facility] [3] Family History Problem Relation Name Age [...] is unaware of what reaction. Pedi-Pre Tape Reinbeck [Wound Dressing Adhesive] Rash Wellbutrin [Bupropion] Rash [...] Description 05/16/2025 8:00 AM EDT Office Visit [facility] [place] [facility] [address], [address] [place] [id number] Karly Gracia MD [address] [place] [address] 05/29/2025 2:40 PM EDT Office Visit [facility] [address] [place] [address] Cayla Erazo, CUT ORDER HAND, DNP [address] [place] [address] 06/07/2025 1:00 PM EDT Office Visit [facility] [address] [place] [address] Tom Iraheta MD [address] [place] [address] documented as of this encounter [...] EDT EXTUBATION Routine 02/24/2025 9:49 AM EDT [facility], E/M 30-74 MINUTES Routine 02/24/2025 7:08 AM EDT Acute respiratory failure with hypoxia and hypercapnia Acute kidney injury superimposed on CKD ([facility]) Chronic kidney disease, stage 3a ([facility]) Hyponatremia Acute encephalopathy Sepsis with encephalopathy without septic shock, due to unspecified organism ([facility]) Chronic diastolic (congestive) heart failure ([facility]) POCT GLUCOSE METER UNSOLICITED RESULTS Routine 02/24/2025 [...] AND TREAT Routine 02/23/2025 10:25 AM EDT [facility], E/M 30-74 MINUTES Routine 02/23/2025 9:10 AM EDT Acute respiratory failure with hypoxia and hypercapnia Acute kidney injury superimposed on CKD ([facility]) Chronic kidney disease, stage 3a ([facility]) Hyponatremia Acute encephalopathy Sepsis with encephalopathy without septic shock, due to unspecified organism ([facility]) SODIUM, PLASMA Timed 02/23/2025 8:34 AM EDT [...] POCT glucose meter (03/02/2025 8:13 AM EDT) [facility] POCT Glucose 188(H) 74 - 99 mg/dL [...] Comment 03/02/2025 8:14 AM EDT HEALTHCARE LAB Manager Estate ID YvroseStefanie frausto 025 8:14 AM EDT [facility] Device ID [id number] 03/02/2025 8:14 AM EDT [facility] Specimen Type POC Capillary 03/02/2025 8:14 AM EDT [facility] Blood Capillary blood specimen / Unknown 03/02/2025 8:13 AM EDT 03/02/2025 8:14 AM EDT Madonna Mani [facility] POINT OF CARE TE ST DOCKED DEVICE UNSOLICITED RESULTS Final Result Performing Organization Address City/State/[facility] Co de Phone Number HEALTHCARE LAB [address] [place] [address] * (ABNORMAL) POCT glucose meter (03/01/2025 7:46 PM EDT) [facility] POCT Glucose 134(H) 74 - 99 mg/dL [...] 03/01/2025 7:47 PM EDT [facility] Manager Estate ID Kamron Freire 03/01/2025 7:47 PM EDT [facility] Device ID [id number] 03/01/2025 7:47 PM EDT [facility] Specimen Type POC Capillary 03/01/2025 7:47 PM EDT [facility] Blood Capillary blood specimen / Unknown 03/01/2025 7:46 PM EDT 03/01/2025 7:47 PM EDT us Madonna Singleton MD LAB POINT OF CARE TE ST DOCKED DEVICE UNSOLICITED RESULTS Final Result Performing Organization Address City/[facility]/ZIP Co de Phone Number [facility] [address] [place] [address] * (ABNORMAL) POCT glucose meter (03/01/2025 5:42 [...] 03/01/2025 5:45 PM EDT [facility] Manager Estate ID Norberto Smyth 03/01/20 5:45 PM EDT [facility] Device ID [id number] 03/01/2025 5:45 PM EDT [facility] Specimen Type POC Capillary 03/01/2025 5:45 PM EDT [facility]ALTH[facility]ARE [facility] Blood Capillary blood specimen / Unknown 03/01/2025 5:42 PM EDT 03/01/2025 5:45 PM EDT us Madonna Singleton MD LAB POINT OF CARE TE ST DOCKED DEVICE UNSOLICITED RESULTS Final Result Performing Organization Address City/[facility]/ZIP Co de Phone Number [facility] [address] [place] [address] * SEND HECTOR MESSAGE (03/01/2025 4:15 PM EDT) Urine Urine specimen obtained by clean catch procedure / Unknown Non-blood Collection / Unknown 03/01/2025 4:15 PM EDT 03/01/2025 4:26 PM EDT us Madonna Mani [facility] URINE ORDERABLES Final Resul t [facility] [address] [place] [address] * (ABNORMAL) Urine Culture (03/01/2025 4:15 PM EDT) Culture 10,000 - 100,000 CFU/mL Enterobacter cloacae complex(A) CHRISTIANO 03/05/2025 12:12 PM EDT [facility] Comment: This isolate has been identified using the FDA Approved [employer] CA System Edited result: Previously reported as [...] ORDER GIO Final Result Performing Organization Address [facility] Co de Phone Number [facility] [address] [place] [address] * Urinalysis Microscopic Examination (03/01/2025 4:15 PM EDT) Urine Urine specimen obtained by clean catch procedure / Unknown Non-blood Collection / Unknown 03/01/2025 4:15 PM EDT 03/01/2025 4:26 PM EDT us Madonna Singleton MD LAB URINE ORDERABLES Final Resul t Performing Organization Address [facility] de Phone Number [facility] [address] [place] [address] * Urine Salmon Panel (03/01/2025 4:15 PM EDT) Extra Sent for Culture 03/01/2025 6:01 PM EDT [facility] Urine Urine specimen obtained by clean catch procedure / Unknown Non-blood Collection / Unknown 03/01/2025 4:15 PM EDT 03/01/2025 4:26 PM EDT us Madonna Singleton MD LAB URINE ORDERABLES Final Resul t Performing Organization Address [facility] Co de Phone Number [facility] [address] [place] [address] * (ABNORMAL) Urinalysis with reflex microscopic (Culture NOT Included) (03/01/2025 4:15 PM EDT) Color, Urine Yellow LAB URINALYSIS - AUTOMATED METHOD 03/01/2025 4:34 PM EDT [facility] Clarity, Urine Cloudy LAB URINALYSIS - AUTOMATED METHOD 03/01/2025 4:34 PM EDT [facility] Spec [place], Urine 1.008 1.005 - 1.030 LAB URINALYSIS - AUTOMATED METHOD 03/01/2025 4:34 PM EDT [facility] pH, Urine 6.5 5.0 - 8.0 LAB URINALYSIS - AUTOMATED METHOD 03/01/2025 4:34 PM EDT [facility] Protein, Urine 30(A) Negative mg/dL LAB URINALYSIS - AUTOMATED METHOD 03/01/2025 4:34 PM EDT [facility] Glucose, Urine Negative Negative mg/dL LAB URINALYSIS - AUTOMATED METHOD 03/01/2025 4:34 PM EDT [facility] Ketones, Urine Negative Negative mg/dL LAB URINALYSIS - AUTOMATED METHOD 03/01/2025 4:34 PM EDT [facility] Blood, Urine Large(A) Negative LAB URINALYSIS - AUTOMATED METHOD 03/01/2025 4:34 PM EDT [facility] Bilirubin, Urine Negative Negative LAB URINALYSIS - AUTOMATED METHOD 03/01/2025 4:34 PM EDT [facility] Urobilinogen, Urine 0.2 0.2 to 1.0 mg/dL LAB URINALYSIS - AUTOMATED METHOD 03/01/2025 4:34 PM EDT [facility] Leukocytes, Urine Large(A) Negative LAB URINALYSIS - AUTOMATED METHOD 03/01/2025 4:34 PM EDT [facility] Nitrite, Urine Negative Negative LAB URINALYSIS - AUTOMATED METHOD 03/01/2025 4:34 PM EDT [facility] RBC, Urine >50(A) 0 to 3 /HPF LAB URINALYSIS - AUTOMATED METHOD 03/01/2025 4:34 PM EDT [facility] WBC, Urine >50(A) 0 to 5 /HPF LAB URINALYSIS - AUTOMATED METHOD 03/01/2025 4:34 PM EDT [facility] Squamous Epithelial Cells 3 - 5 0 to 5 /HPF LAB URINALYSIS - AUTOMATED METHOD 03/01/2025 4:34 PM EDT [facility] Hyaline Casts 0 - 2 0 to 5 /LPF LAB URINALYSIS - AUTOMATED METHOD 03/01/2025 4:34 PM EDT [facility] Bacteria, Urine Negative Negative LAB URINALYSIS - AUTOMATED METHOD 03/01/2025 4:34 PM EDT [facility] Urine Urine specimen obtained by clean catch procedure / Unknown Non-blood Collection / Unknown 03/01/2025 4:15 PM EDT 03/01/2025 4:26 PM EDT us Madonna Singleton MD LAB URINE ORDERABLES Final Resul t [facility] [address] [place] [address] * (ABNORMAL) POCT glucose meter (03/01/2025 12:03 [...] Comment 03/01/2025 12:05 PM EDT HEALTHCARE LAB Manager Estate ID [place], [place] 03/01/2025 12:05 PM EDT HEALTHCARE LAB Device ID [id number] 03/01/2025 12:05 PM EDT [facility] Specimen Type POC Capillary 03/01/2025 12:05 PM EDT [facility] Blood Capillary blood specimen / Unknown 03/01/2025 12:03 PM EDT 03/01/2025 12:05 PM EDT us Madonna Singleton MD LAB POINT OF CARE TE ST DOCKED DEVICE UNSOLICITED RESULTS Final Result [facility] [address] [place] [address] * (ABNORMAL) POCT glucose meter (03/01/2025 7:59 [...] Comment 03/01/2025 8:01 AM EDT HEALTHCARE LAB Manager Estate ID Nancy Hidalgo 03/01/2025 8:01 AM EDT HEALTHCARE LAB Device ID [id number] 03/01/2025 8:01 AM EDT HEALTHCARE LAB Specimen Type POC Capillary 03/01/2025 8:01 AM EDT [facility] Blood Capillary blood specimen / Unknown 03/01/2025 7:59 AM EDT 03/01/2025 8:01 AM EDT us Madonna Mani [facility] POINT OF CARE TE ST DOCKED DEVICE UNSOLICITED RESULTS Final Result Performing Organization Address City/State/[facility] Co de Phone Number HEALTHCARE LAB [address] [place] [address] * (ABNORMAL) CBC and Differential (03/01/2025 4:08 AM EDT) WBC Count 6.83 3.70 - 10.30 10*3/uL LAB HEMATOLOGY METHOD 03/01/2025 4:54 AM EDT [facility] RBC Count 3.61(L) 3.90 - 5.20 10*6/uL LAB HEMATOLOGY METHOD 03/01/2025 4:54 AM EDT [facility] HGB 9.2(L) 11.2 - 15.7 g/dL LAB HEMATOLOGY METHOD 03/01/2025 4:54 AM EDT [facility] HCT 29.9(L) 34.0 - 45.0 % LAB HEMATOLOGY METHOD 03/01/2025 4:54 AM EDT [facility] Platelet Count 294 155 - 369 10*3/uL LAB HEMATOLOGY METHOD 03/01/2025 4:54 AM EDT [facility] MCV 83 79 - 98 fL LAB HEMATOLOGY METHOD 03/01/2025 4:54 AM EDT [facility] MCH 25.5(L) 26.0 - 32.0 pg LAB HEMATOLOGY METHOD 03/01/2025 4:54 AM EDT [facility] MCHC 30.8 30.7 - 35.5 g/dL LAB HEMATOLOGY METHOD 03/01/2025 4:54 AM EDT [facility] RDW 15.1(H) 11.5 - 14.5 % LAB HEMATOLOGY METHOD 03/01/2025 4:54 AM EDT [facility] MPV 9.2 8.8 - 12.5 fL LAB HEMATOLOGY METHOD 03/01/2025 4:54 AM EDT [facility] nRBC 0.0 <=0.0 per 100 WBCs LAB HEMATOLOGY METHOD 03/01/2025 4:54 AM EDT [facility] Differential Type Automated LAB HEMATOLOGY METHOD 03/01/2025 4:54 AM EDT [facility] Neutrophils % 56 % LAB HEMATOLOGY METHOD 03/01/2025 4:54 AM EDT [facility] Lymphocytes % 25 % LAB HEMATOLOGY METHOD 03/01/2025 4:54 AM EDT [facility] Monocytes % 11 % LAB HEMATOLOGY METHOD 03/01/2025 4:54 AM EDT [facility] Eosinophils % 6 % LAB HEMATOLOGY METHOD 03/01/2025 4:54 AM EDT [facility] Basophils % 1 % LAB HEMATOLOGY METHOD 03/01/2025 4:54 AM EDT [facility] Immature Granulocytes % 1 % LAB HEMATOLOGY METHOD 03/01/2025 4:54 AM EDT [facility] Neutrophils Absolute 3.86 1.60 - 6.10 10*3/uL LAB HEMATOLOGY METHOD 03/01/2025 4:54 AM EDT [facility] Lymphocytes Absolute 1.70 1.20 - 3.90 10*3/uL LAB HEMATOLOGY METHOD 03/01/2025 4:54 AM EDT [facility] Monocytes Absolute 0.74 0.30 - 0.90 10*3/uL LAB HEMATOLOGY METHOD 03/01/2025 4:54 AM EDT [facility] Eosinophils Absolute 0.44 0.00 - 0.50 10*3/uL LAB HEMATOLOGY METHOD 03/01/2025 4:54 AM EDT [facility] Basophils Absolute 0.05 0.00 - 0.10 10*3/uL LAB HEMATOLOGY METHOD 03/01/2025 4:54 AM EDT [facility] Immature Granulocytes Absolute 0.04 0.00 - 0.06 10*3/uL LAB HEMATOLOGY METHOD 03/01/2025 4:54 AM EDT [facility] Blood Venous blood specimen / Unknown Venipuncture / Unknown 03/01/2025 4:08 AM EDT 03/01/2025 4:42 AM EDT Narrative [facility] - 03/01/2025 4:54 AM EDT Therapeutic decision making should be based on absolute values, rather than percentages. us Madonna Singleton MD LAB BLOOD ORDERABLES Final Resul t Performing Organization Address City/[facility]/ZIP Co de Phone Number [facility] [address] [place] [address] * Magnesium, Plasma (03/01/2025 4:08 AM EDT) Magnesium, Plasma 2.0 1.9 - 2.4 mg/dL 03/01/2025 5:14 AM EDT [facility] Blood Venous blood specimen / Unknown Venipuncture / Unknown 03/01/2025 4:08 AM EDT 03/01/2025 4:43 AM EDT us Madonna Singleton MD LAB BLOOD ORDERABLES Final Resul t Performing Organization Address City/[facility]/ZIP Co de Phone Number [facility] [address] [place] [address] * (ABNORMAL) Basic Metabolic Panel, Plasma (03/01/2025 4:08 AM EDT) Glucose, Plasma 205(H) 74 - 99 mg/dL 03/01/2025 5:14 AM EDT [facility] BUN, Plasma 40(H) 8 - 23 mg/dL 03/01/2025 5:14 AM EDT [facility] Creatinine, Plasma 1.84(H) 0.60 - 1.10 mg/dL 03/01/2025 5:14 AM EDT [facility] BUN/Creatinine Ratio 22 03/01/2025 5:14 AM EDT [facility] Sodium, Plasma 125(L) 136 - 145 mmol/L 03/01/2025 5:14 AM EDT [facility] Potassium, Plasma 4.5 3.6 - 4.9 mmol/L 03/01/2025 5:14 AM EDT [facility] Chloride, Plasma 91(L) 97 - 107 mmol/L 03/01/2025 5:14 AM EDT [facility] CO2, Plasma 23 22 - 29 mmol/L 03/01/2025 5:14 AM EDT [facility] Anion Gap 11 6 - 16 mmol/L 03/01/2025 5:14 AM EDT [facility] Total Calcium, Plasma 8.8(L) 8.9 - 10.2 mg/dL 03/01/2025 5:14 AM EDT [facility] eGFRcr 30.1 mL/min/1.7 3m*2 03/01/2025 5:14 AM EDT [facility] Comment:Reported eGFRcr in m L/min/1.73m2 is based the CKD-EPI 2020 equation that does not use a race coefficient. Blood Venous blood specimen / Unknown Venipuncture / Unknown 03/01/2025 4:08 AM EDT 03/01/2025 4:43 AM EDT us Madonna Singleton MD LAB BLOOD ORDERABLES Final Resul t Performing Organization Address City/[facility]/ZIP Co de Phone Number [facility] [address] [place] [address] * Phosphorus, Plasma (03/01/2025 4:08 AM EDT) Phosphorus, Plasma 4.4 2.5 - 4.5 mg/dL 03/01/2025 5:14 AM EDT [facility] Blood Venous blood specimen / Unknown Venipuncture / Unknown 03/01/2025 4:08 AM EDT 03/01/2025 4:43 AM EDT us Madonna Singleton MD LAB BLOOD ORDERABLES Final Resul t Performing Organization Address City/[facility]/ZIP Co de Phone Number [facility] [address] [place] [address] * (ABNORMAL) POCT glucose meter (03/01/2025 3:09 AM EDT) [facility] POCT Glucose 187(H) 74 - 99 mg/dL [...] Comment 03/01/2025 3:35 AM EDT [facility]ALTHCARE LAB Manager Estate ID Pat Young 03/01/2025 3:35 AM EDT [facility] Device ID [id number] 03/01/2025 3:35 AM EDT [facility]ARE LAB Specimen Type POC Capillary 03/01/2025 3:35 AM EDT [facility] Blood Capillary blood specimen / Unknown 03/01/2025 3:09 AM EDT 03/01/2025 3:35 AM EDT Madonna Singleton MD LAB POINT OF CARE TE ST DOCKED DEVICE UNSOLICITED RESULTS Final Result Performing Organization Address City/State/[facility] Co de Phone Number HEALTHCARE LAB [address] [place], [place] [id number] * (ABNORMAL) POCT glucose meter (02/28/2025 8:25 PM EDT) [facility] POCT Glucose 258(H) 74 - 99 mg/dL [...] 02/28/2025 8:42 PM EDT [facility] Manager Estate ID Pat Young 02/28/2025 8:42 PM EDT [facility]ARE LAB Device ID [id number] 02/28/2025 8:42 PM EDT [facility] Specimen Type POC Capillary 02/28/2025 8:42 PM EDT [facility] Blood Capillary blood specimen / Unknown 02/28/2025 8:25 PM EDT 02/28/2025 8:42 PM EDT us Madonna Singleton MD LAB POINT OF CARE TE ST DOCKED DEVICE UNSOLICITED RESULTS Final Result Performing Organization Address City/[facility] Co de Phone Number [facility]ARE [facility] [address] [place] [address] * (ABNORMAL) POCT glucose meter (02/28/2025 4:59 PM EDT) Pathologist [facility] POCT Glucose 300(H) 74 - 99 mg/dL [...] Comment 02/28/2025 5:00 PM EDT [facility]ALTHCARE LAB Manager Estate ID [place], [place] 02/28/2025 5:00 PM EDT [facility]CARE LAB Device ID [id number] 02/28/2025 5:00 PM EDT [facility]ARE [facility] Specimen Type POC Capillary 02/28/2025 5:00 PM EDT [facility] Blood Capillary blood specimen / Unknown 02/28/2025 4:59 PM EDT 02/28/2025 5:00 PM EDT us Madonna Singleton MD LAB POINT OF CARE TE ST DOCKED DEVICE UNSOLICITED RESULTS Final Result Performing Organization Address City/[facility]/ZIP Co de Phone Number HEALTHCARE LAB [address] [place] [address] * (ABNORMAL) CBC and Differential (02/28/2025 1:04 PM EDT) WBC Count 7.39 3.70 - 10.30 10*3/uL LAB HEMATOLOGY METHOD 02/28/2025 1:37 PM EDT [facility] RBC Count 4.30 3.90 - 5.20 10*6/uL LAB HEMATOLOGY METHOD 02/28/2025 1:37 PM EDT [facility] HGB 11.0(L) 11.2 - 15.7 g/dL LAB HEMATOLOGY METHOD 02/28/2025 1:37 PM EDT [facility] HCT 35.0 34.0 - 45.0 % LAB HEMATOLOGY METHOD 02/28/2025 1:37 PM EDT [facility] Platelet Count 399(H) 155 - 369 10*3/uL LAB HEMATOLOGY METHOD 02/28/2025 1:37 PM EDT [facility] MCV 81 79 - 98 fL LAB HEMATOLOGY METHOD 02/28/2025 1:37 PM EDT [facility] MCH 25.6(L) 26.0 - 32.0 pg LAB HEMATOLOGY METHOD 02/28/2025 1:37 PM EDT [facility] MCHC 31.4 30.7 - 35.5 g/dL LAB HEMATOLOGY METHOD 02/28/2025 1:37 PM EDT [facility] RDW 15.5(H) 11.5 - 14.5 % LAB HEMATOLOGY METHOD 02/28/2025 1:37 PM EDT [facility] MPV 9.0 8.8 - 12.5 fL LAB HEMATOLOGY METHOD 02/28/2025 1:37 PM EDT [facility] nRBC 0.0 <=0.0 per 100 WBCs LAB HEMATOLOGY METHOD 02/28/2025 1:37 PM EDT [facility] Differential Type Automated LAB HEMATOLOGY METHOD 02/28/2025 1:37 PM EDT [facility] Neutrophils % 62 % LAB HEMATOLOGY METHOD 02/28/2025 1:37 PM EDT [facility] Lymphocytes % 21 % LAB HEMATOLOGY METHOD 02/28/2025 1:37 PM EDT [facility] Monocytes % 9 % LAB HEMATOLOGY METHOD 02/28/2025 1:37 PM EDT [facility] Eosinophils % 6 % LAB HEMATOLOGY METHOD 02/28/2025 1:37 PM EDT [facility] Basophils % 1 % LAB HEMATOLOGY METHOD 02/28/2025 1:37 PM EDT [facility] Immature Granulocytes % 1 % LAB HEMATOLOGY METHOD 02/28/2025 1:37 PM EDT [facility] Neutrophils Absolute 4.64 1.60 - 6.10 10*3/uL LAB HEMATOLOGY METHOD 02/28/2025 1:37 PM EDT [facility] Lymphocytes Absolute 1.54 1.20 - 3.90 10*3/uL LAB HEMATOLOGY METHOD 02/28/2025 1:37 PM EDT [facility] Monocytes Absolute 0.69 0.30 - 0.90 10*3/uL LAB HEMATOLOGY METHOD 02/28/2025 1:37 PM EDT [facility] Eosinophils Absolute 0.41 0.00 - 0.50 10*3/uL LAB HEMATOLOGY METHOD 02/28/2025 1:37 PM EDT [facility] Basophils Absolute 0.05 0.00 - 0.10 10*3/uL LAB HEMATOLOGY METHOD 02/28/2025 1:37 PM EDT [facility] Immature Granulocytes Absolute 0.06 0.00 - 0.06 10*3/uL LAB HEMATOLOGY METHOD 02/28/2025 1:37 PM EDT [facility] Blood Venous blood specimen / Unknown Venipuncture / Unknown 02/28/2025 1:04 PM EDT 02/28/2025 1:28 PM EDT Narrative [facility] - 02/28/2025 1:37 PM EDT Therapeutic decision making should be based on absolute values, rather than percentages. us Madonna Singleton MD LAB BLOOD ORDERABLES Final Resul t [facility] [address] [place] [address] * (ABNORMAL) Magnesium, Plasma (02/28/2025 1:04 PM EDT) Magnesium, Plasma 1.7(L) 1.9 - 2.4 mg/dL 02/28/2025 1:45 PM EDT [facility] Blood Venous blood specimen / Unknown Venipuncture / Unknown 02/28/2025 1:04 PM EDT 02/28/2025 1:14 PM EDT us Madonnaryan Singleton MD LAB BLOOD ORDERABLES Final Resul t [facility] [address] [place] [address] * (ABNORMAL) Basic Metabolic Panel, Plasma (02/28/2025 1:04 PM EDT) Glucose, Plasma 166(H) 74 - 99 mg/dL 02/28/2025 1:45 PM EDT [facility] BUN, Plasma 40(H) 8 - 23 mg/dL 02/28/2025 1:45 PM EDT [facility] Creatinine, Plasma 1.99(H) 0.60 - 1.10 mg/dL 02/28/2025 1:45 PM EDT [facility] BUN/Creatinine Ratio 20 02/28/2025 1:45 PM EDT [facility] Sodium, Plasma 130(L) 136 - 145 mmol/L 02/28/2025 1:45 PM EDT [facility] Potassium, Plasma 4.6 3.6 - 4.9 mmol/L 02/28/2025 1:45 PM EDT [facility] Chloride, Plasma 93(L) 97 - 107 mmol/L 02/28/2025 1:45 PM EDT [facility] CO2, Plasma 24 22 - 29 mmol/L 02/28/2025 1:45 PM EDT [facility] Anion Gap 13 6 - 16 mmol/L 02/28/2025 1:45 PM EDT [facility] Total Calcium, Plasma 9.3 8.9 - 10.2 mg/dL 02/28/2025 1:45 PM EDT [facility] eGFRcr 27.4 mL/min/1.7 3m*2 02/28/2025 1:45 PM EDT [facility] Comment:Reported eGFRcr in m L/min/1.73m2 is based the CKD-EPI 2020 equation that does not use a race coefficient. Blood Venous blood specimen / Unknown Venipuncture / Unknown 02/28/2025 1:04 PM EDT 02/28/2025 1:14 PM EDT us Madonna Singleton MD LAB BLOOD ORDERABLES Final Resul t Performing Organization Address City/[facility]/ZIP Co de Phone Number [facility] [address] [place] [address] * Phosphorus, Plasma (02/28/2025 1:04 PM EDT) [facility] Phosphorus, Plasma 4.1 2.5 - 4.5 mg/dL 02/28/2025 1:45 PM EDT [facility] Blood Venous blood specimen / Unknown Venipuncture / Unknown 02/28/2025 1:04 PM EDT 02/28/2025 1:14 PM EDT us Madonna Singleton MD LAB BLOOD ORDERABLES Final Resul t Performing Organization Address [facility] Co de Phone Number [facility] [address] [place] [address] * (ABNORMAL) POCT glucose meter (02/28/2025 12:17 PM EDT) [facility] POCT Glucose 161(H) 74 - 99 mg/dL [...] 02/28/2025 12:19 PM EDT [facility] Manager Estate ID Malcolm Hidalgoedwardty 02/28/2025 12:19 PM EDT [facility] Device ID [id number] 02/28/2025 12:19 PM EDT [facility] Specimen Type POC Capillary 02/28/2025 12:19 PM EDT [facility] Blood Capillary blood specimen / Unknown 02/28/2025 12:17 PM EDT 02/28/2025 12:19 PM EDT us Madonna Singleton MD LAB POINT OF CARE TE ST DOCKED DEVICE UNSOLICITED RESULTS Final Result Performing Organization Address [facility]/ZIP Co de Phone Number [facility]ALTHCARE LAB [address] [place] [address] * (ABNORMAL) POCT glucose meter (02/27/2025 8:12 PM EDT) [facility] POCT Glucose 211(H) 74 - 99 mg/dL [...] Comment 02/27/2025 8:14 PM EDT [facility]ARE LAB Manager Estate ID Pat Young 02/27/2025 8:14 PM EDT HEALTHCARE LAB Device ID [id number] 02/27/2025 8:14 PM EDT [facility] LAB Specimen Type POC Capillary 02/27/2025 8:14 PM EDT [facility] Blood Capillary blood specimen / Unknown 02/27/2025 8:12 PM EDT 02/27/2025 8:14 PM EDT Madonna Singleton MD LAB POINT OF CARE TE ST DOCKED DEVICE UNSOLICITED RESULTS Final Result [facility] [address] [place] [address] * (ABNORMAL) POCT glucose meter (02/27/2025 5:20 PM EDT) [facility] POCT Glucose 171(H) 74 - 99 mg/dL [...] 02/27/2025 5:21 PM EDT [facility] Manager Estate ID Nancy Hidalgo 02/27/2025 5:21 PM EDT [facility] Device ID [id number] 02/27/2025 5:21 PM EDT [facility]ARE LAB Specimen Type POC Capillary 02/27/2025 5:21 PM EDT [facility] Blood Capillary blood specimen / Unknown 02/27/2025 5:20 PM EDT 02/27/2025 5:21 PM EDT us Madonna Singleton MD LAB POINT OF CARE TE ST DOCKED DEVICE UNSOLICITED RESULTS Final Result [facility] [address] [place] [address] * (ABNORMAL) POCT glucose meter (02/27/2025 12:29 [...] Comment 02/27/2025 12:30 PM EDT [facility]ARE LAB Manager Estate ID Daniela Carroll 025 12:30 PM EDT HEALTH[facility]ARE LAB Device ID [id number] 02/27/2025 12:30 PM EDT [facility] LAB Specimen Type POC Capillary 02/27/2025 12:30 PM EDT [facility] Blood Capillary blood specimen / Unknown 02/27/2025 12:29 PM EDT 02/27/2025 12:30 PM EDT us Ludy Hill MD LAB POINT OF CARE TE ST DOCKED DEVICE UNSOLICITED RESULTS Final Result [facility] [address] [place] [address] * XR Panorex (02/27/2025 12:13 PM EDT) [...] in the posterior aspect of tooth #31. Moody wear in tooth number 8, 9 and 23. No periapical lucency Procedure Note Lucas Cristobal MD - 02/27/2025 CLINICAL INDICATION: Odontogenic infection TECHNIQUE: XR PANOREX COMPARISON: None. FINDINGS: Rounded lucency in tooth #6. Aggressive destruction in the posterioraspect of tooth #31. Moody wear in tooth number 8, 9 and [...] 02/27/2025 8:21 AM EDT [facility] Manager Estate ID Daniela Carroll 025 8:21 AM EDT [facility] Device ID [id number] 02/27/2025 8:21 AM EDT [facility] Specimen Type POC Capillary 02/27/2025 8:21 AM EDT [facility] Blood Capillary blood specimen / Unknown 02/27/2025 8:19 AM EDT 02/27/2025 8:21 AM EDT us Ludy Hill MD LAB POINT OF CARE TE ST DOCKED DEVICE UNSOLICITED RESULTS Final Result [facility] [address] [place] [address] * (ABNORMAL) POCT glucose meter (02/26/2025 7:37 [...] Comment 02/26/2025 7:38 PM EDT [facility]ALTH[facility]ARE LAB Manager Estate ID Daniela Mcbride 02/26/2025 7:38 PM EDT HEALTHCARE LAB Device ID [id number] 02/26/2025 7:38 PM EDT [facility] Specimen Type POC Capillary 02/26/2025 7:38 PM EDT [facility] Blood Capillary blood specimen / Unknown 02/26/2025 7:37 PM EDT 02/26/2025 7:38 PM EDT us Ludy Hill MD LAB POINT OF CARE TE ST DOCKED DEVICE UNSOLICITED RESULTS Final Result [facility] [address] [place] [address] * (ABNORMAL) POCT glucose meter (02/26/2025 5:16 [...] Comment 02/26/2025 5:18 PM EDT [facility]ARE LAB Manager Estate ID Bassem Jay 02/26/2025 5:18 PM EDT HEALTHCARE LAB Device ID [id number] 02/26/2025 5:18 PM EDT [facility] LAB Specimen Type POC Capillary 02/26/2025 5:18 PM EDT [facility] Blood Capillary blood specimen / Unknown 02/26/2025 5:16 PM EDT 02/26/2025 5:18 PM EDT us Ludy Hill MD LAB POINT OF CARE TE ST DOCKED DEVICE UNSOLICITED RESULTS Final Result Performing Organization Address City/State/[facility] Co de Phone Number HEALTHCARE LAB [address] [place] [address] * (ABNORMAL) POCT glucose meter (02/26/2025 1:08 PM EDT) [facility] POCT Glucose 223(H) 74 - [...] Comment 02/26/2025 1:09 PM EDT [facility]ALTH[facility]ARE LAB Manager Estate ID Bassem Jay 02/26/2025 1:09 PM EDT HEALTHCARE LAB Device ID [id number] 02/26/2025 1:09 PM EDT [facility]ARE LAB Specimen Type POC Capillary 02/26/2025 1:09 PM EDT [facility] Blood Capillary blood specimen / Unknown 02/26/2025 1:08 PM EDT 02/26/2025 1:09 PM EDT us Ludy Hill MD LAB POINT OF CARE TE ST DOCKED DEVICE UNSOLICITED RESULTS Final Result [facility] [address] [place] [address] * (ABNORMAL) POCT glucose meter (02/26/2025 9:45 AM EDT) POCT Glucose 187(H) 74 - 99 mg/dL 02/26/2025 9:46 AM EDT [facility] Comment:Accuracy of a [...] for testing. Comment 02/26/2025 9:46 AM EDT [facility] Manager Estate ID Bassem Jay 02/26/2025 9:46 AM EDT [facility] Device ID [id number] 02/26/2025 9:46 AM EDT [facility] Specimen Type POC Capillary 02/26/2025 9:46 AM EDT [facility] Blood Capillary blood specimen / Unknown 02/26/2025 9:45 AM EDT 02/26/2025 9:46 AM EDT us Ludy Hill MD LAB POINT OF CARE TE ST DOCKED DEVICE UNSOLICITED RESULTS Final Result [facility] [address] [place] [address] * (ABNORMAL) Hemogram (CBC) (02/26/2025 4:51 AM EDT) WBC Count 7.59 3.70 - 10.30 10*3/uL LAB HEMATOLOGY METHOD 02/26/2025 5:25 AM EDT [facility] RBC Count 4.00 3.90 - 5.20 10*6/uL LAB HEMATOLOGY METHOD 02/26/2025 5:25 AM EDT [facility] HGB 10.3(L) 11.2 - 15.7 g/dL LAB HEMATOLOGY METHOD 02/26/2025 5:25 AM EDT [facility] HCT 32.3(L) 34.0 - 45.0 % LAB HEMATOLOGY METHOD 02/26/2025 5:25 AM EDT [facility] Platelet Count 375(H) 155 - 369 10*3/uL LAB HEMATOLOGY METHOD 02/26/2025 5:25 AM EDT [facility] MCV 81 79 - 98 fL LAB HEMATOLOGY METHOD 02/26/2025 5:25 AM EDT [facility] MCH 25.8(L) 26.0 - 32.0 pg LAB HEMATOLOGY METHOD 02/26/2025 5:25 AM EDT [facility] MCHC 31.9 30.7 - 35.5 g/dL LAB HEMATOLOGY METHOD 02/26/2025 5:25 AM EDT [facility] RDW 15.5(H) 11.5 - 14.5 % LAB HEMATOLOGY METHOD 02/26/2025 5:25 AM EDT [facility] MPV 8.9 8.8 - 12.5 fL LAB HEMATOLOGY METHOD 02/26/2025 5:25 AM EDT [facility] nRBC 0.0 <=0.0 per 100 WBCs LAB HEMATOLOGY METHOD 02/26/2025 5:25 AM EDT [facility] Blood Venous blood specimen / Unknown Venipuncture / Unknown 02/26/2025 4:51 AM EDT 02/26/2025 5:12 AM EDT us Ludy Hill MD LAB BLOOD ORDERABLES Final Resul t [facility] [address] [place] [address] * (ABNORMAL) Magnesium, Plasma (02/26/2025 4:51 AM EDT) Magnesium, Plasma 1.7(L) 1.9 - 2.4 mg/dL 02/26/2025 5:54 AM EDT [facility] Blood Venous blood specimen / Unknown Venipuncture / Unknown 02/26/2025 4:51 AM EDT 02/26/2025 5:13 AM EDT us Ludy Hill MD LAB BLOOD ORDERABLES Final Resul t [facility] [address] [place] [address] * (ABNORMAL) Renal function panel (02/26/2025 4:51 AM EDT) Glucose, Plasma 156(H) 74 - 99 mg/dL 02/26/2025 5:54 AM EDT [facility] BUN, Plasma 26(H) 8 - 23 mg/dL 02/26/2025 5:54 AM EDT [facility] Creatinine, Plasma 1.62(H) 0.60 - 1.10 mg/dL 02/26/2025 5:54 AM EDT [facility] BUN/Creatinine Ratio 16 02/26/2025 5:54 AM EDT [facility] Sodium, Plasma 133(L) 136 - 145 mmol/L 02/26/2025 5:54 AM EDT [facility] Potassium, Plasma 4.2 3.6 - 4.9 mmol/L 02/26/2025 5:54 AM EDT [facility] Chloride, Plasma 96(L) 97 - 107 mmol/L 02/26/2025 5:54 AM EDT [facility] CO2, Plasma 24 22 - 29 mmol/L 02/26/2025 5:54 AM EDT [facility] Anion Gap 13 6 - 16 mmol/L 02/26/2025 5:54 AM EDT [facility] Total Calcium, Plasma 8.9 8.9 - 10.2 mg/dL 02/26/2025 5:54 AM EDT [facility] Phosphorus, Plasma 3.8 2.5 - 4.5 mg/dL 02/26/2025 5:54 AM EDT [facility] Albumin, Plasma 3.5 3.5 - 5.2 g/dL 02/26/2025 5:54 AM EDT [facility] eGFRcr 35.1 mL/min/1.7 3m*2 02/26/2025 5:54 AM EDT [facility] Comment:Reported eGFRcr in m L/min/1.73m2 is based the CKD-EPI 2020 equation that does not use a race coefficient. Blood Venous blood specimen / Unknown Venipuncture / Unknown 02/26/2025 4:51 AM EDT 02/26/2025 5:13 AM EDT us Ludy Hill MD LAB BLOOD ORDERABLES Final Resul t Performing Organization Address City/[facility] Co de Phone Number [facility] [address] [place] [address] * (ABNORMAL) POCT glucose meter (02/25/2025 8:37 PM EDT) [facility] POCT Glucose 289(H) 74 - 99 mg/dL [...] Comment 02/25/2025 8:39 PM EDT [facility]ALTH[facility]ARE LAB Manager Estate ID Daniela Mcbride 02/25/2025 8:39 PM EDT HEALTHCARE LAB Device ID [id number] 02/25/2025 8:39 PM EDT [facility] LAB Specimen Type POC Capillary 02/25/2025 8:39 PM EDT [facility] Blood Capillary blood specimen / Unknown 02/25/2025 8:37 PM EDT 02/25/2025 8:39 PM EDT us Ludy Hill MD LAB POINT OF CARE TE ST DOCKED DEVICE UNSOLICITED RESULTS Final Result Performing Organization Address City/[facility]/ZIP Co de Phone Number [facility]ALTHCARE LAB [address] [place] [address] * ECG Adult (02/25/2025 6:38 PM EDT) Pathologist [facility] EKG DIAGNOSIS CLASS Abnormal MUSE ECG Ventricular Rate 68 BPM MUSE ECG Atrial Rate 68 BPM MUSE ECG OH Interval 198 ms MUSE ECG QRSD Interval 136 ms MUSE ECG QT Interval 450 ms MUSE ECG QTC Interval 478 ms MUSE ECG P Colton 71 degrees MUSE ECG R [place] 265 degrees MUSE ECG T Wave Colton 50 degrees MUSE ECG Diagnosis Sinus rhythm with marked sinus arrhythmia MUSE ECG Diagnosis Right bundle branch block MUSE ECG Diagnosis Abnormal ECG MUSE ECG Diagnosis MUSE ECG Diagnosis Confirmed by Karly Gracia ([id number]) on 02/26/2025 3:20:41 PM MUSE ECG 02/25/2025 6:38 PM EDT 02/26/2025 3:20 PM EDT us Ludy Hill MD ECG ORDERABLES Final Result Performing Organization Address City/[facility] Co de Phone Number MUSE ECG * [...] 02/25/2025 5:30 PM EDT [facility] Manager Estate ID Bassem Jay 02/25/2025 5:30 PM EDT HEALTHCARE LAB Device ID [id number] 02/25/2025 5:30 PM EDT [facility] LAB Specimen Type POC Capillary 02/25/2025 5:30 PM EDT [facility] Blood Capillary blood specimen / Unknown 02/25/2025 5:28 PM EDT 02/25/2025 5:30 PM EDT us Ludy Hill MD LAB POINT OF CARE TE ST DOCKED DEVICE UNSOLICITED RESULTS Final Result [facility] [address] [place] [address] * (ABNORMAL) POCT glucose meter (02/25/2025 1:08 [...] Comment 02/25/2025 1:09 PM EDT [facility]ARE LAB Manager Estate ID Bassem Jay 02/25/2025 1:09 PM EDT HEALTH[facility]ARE LAB Device ID [id number] 02/25/2025 1:09 PM EDT [facility] Specimen Type POC Capillary 02/25/2025 1:09 PM EDT [facility] Blood Capillary blood specimen / Unknown 02/25/2025 1:08 PM EDT 02/25/2025 1:09 PM EDT us Ludy Hill MD LAB POINT OF CARE TE ST DOCKED DEVICE UNSOLICITED RESULTS Final Result [facility] [address] [place] [address] * ECG Adult (02/25/2025 12:27 PM EDT) EKG DIAGNOSIS CLASS Abnormal MUSE ECG Ventricular Rate 79 BPM MUSE ECG Atrial Rate 79 BPM MUSE ECG OH Interval 184 ms MUSE ECG QRSD Interval 134 ms MUSE ECG QT Interval 414 ms MUSE ECG QTC Interval 474 ms MUSE ECG R Col[place] 229 degrees MUSE ECG T Wave [place] 59 degrees MUSE ECG Diagnosis Sinus rhythm [...] POCT glucose meter (02/25/2025 8:21 AM EDT) [facility] POCT Glucose 128(H) 74 - 99 mg/dL [...] Comment 02/25/2025 8:22 AM EDT [facility]ALTH[facility]ARE LAB Manager Estate ID Bassem Jay 02/25/2025 8:22 AM EDT HEALTHCARE LAB Device ID [id number] 02/25/2025 8:22 AM EDT [facility]ALTH[facility]ARE LAB Specimen Type POC Capillary 02/25/2025 8:22 AM EDT [facility] Blood Capillary blood specimen / Unknown 02/25/2025 8:21 AM EDT 02/25/2025 8:22 AM EDT Luda Ralph MD LAB POINT OF CARE TE ST DOCKED DEVICE UNSOLICITED RESULTS Final Result Performing Organization Address City/[facility]/ZIP Co de Phone Number [facility] [address] [place] [address] * (ABNORMAL) Cystatin C (02/25/2025 1:36 AM EDT) [facility] Cystatin C 2.37(H) 0.61 - 0.95 mg/L 02/25/2025 2:27 AM EDT [facility] Blood Venous blood specimen / Unknown Venipuncture / Unknown 02/25/2025 1:36 AM EDT 02/25/2025 1:57 AM EDT us Luda Ralph MD LAB BLOOD ORDERABLES Final R esult Performing Organization Address City/[facility]/ZIP Co de Phone Number [facility] [address] [place] [address] * (ABNORMAL) Basic Metabolic Panel, Plasma (02/25/2025 1:36 AM EDT) [facility] Glucose, Plasma 95 74 - 99 mg/dL 02/25/2025 2:27 AM EDT [facility] BUN, Plasma 34(H) 8 - 23 mg/dL 02/25/2025 2:27 AM EDT [facility] Creatinine, Plasma 1.62(H) 0.60 - 1.10 mg/dL 02/25/2025 2:27 AM EDT [facility] BUN/Creatinine Ratio 21 02/25/2025 2:27 AM EDT [facility] Sodium, Plasma 134(L) 136 - 145 mmol/L 02/25/2025 2:27 AM EDT [facility] Potassium, Plasma 3.9 3.6 - 4.9 mmol/L 02/25/2025 2:27 AM EDT [facility] Chloride, Plasma 97 97 - 107 mmol/L 02/25/2025 2:27 AM EDT [facility] CO2, Plasma 23 22 - 29 mmol/L 02/25/2025 2:27 AM EDT [facility] Anion Gap 14 6 - 16 mmol/L 02/25/2025 2:27 AM EDT [facility] Total Calcium, Plasma 8.9 8.9 - 10.2 mg/dL 02/25/2025 2:27 AM EDT [facility] eGFRcr 35.1 mL/min/1.7 3m*2 02/25/2025 2:27 AM EDT [facility] Comment:Reported eGFRcr in m L/min/1.73m2 is based the CKD-EPI 2020 equation that does not use a race coefficient. Blood Venous blood specimen / Unknown Venipuncture / Unknown 02/25/2025 1:36 AM EDT 02/25/2025 1:57 AM EDT us Luda Ralph MD LAB BLOOD ORDERABLES Final R esult [facility] [address] [place] [address] * (ABNORMAL) POCT glucose meter (02/24/2025 8:21 [...] Comment 02/24/2025 8:22 PM EDT [facility] Manager Estate ID Daniela Mcbride 02/24/2025 8:22 PM EDT [facility] Device ID [id number] 02/24/2025 8:22 PM EDT [facility] Specimen Type POC Capillary 02/24/2025 8:22 PM EDT [facility] Blood Capillary blood specimen / Unknown 02/24/2025 8:21 PM EDT 02/24/2025 8:22 PM EDT Luda Ralph MD LAB POINT OF CARE TE ST DOCKED DEVICE UNSOLICITED RESULTS Final Result [facility] [address] [place] [address] * POCT glucose meter (02/24/2025 5:55 PM EDT) [facility] POCT Glucose 93 74 - 99 mg/dL [...] Comment 02/24/2025 5:56 PM EDT [facility]ALTHCARE LAB Manager Estate ID Delroy Bernal 02/24/2025 5:56 PM EDT HEALTHCARE LAB Device ID [id number] 02/24/2025 5:56 PM EDT [facility] Specimen Type POC Capillary 02/24/2025 5:56 PM EDT [facility]ALTH[facility]ARE LAB Blood Capillary blood specimen / Unknown 02/24/2025 5:55 PM EDT 02/24/2025 5:56 PM EDT us Luda Ralph MD LAB POINT OF CARE TE ST DOCKED DEVICE UNSOLICITED RESULTS Final Result Performing Organization Address [facility] de Phone Number HEALTHCARE LAB [address] [place] [address] * (ABNORMAL) POCT glucose meter (02/24/2025 11:26 [...] for testing. Comment 02/24/2025 11:27 AM EDT [facility] Manager Estate ID Delroy Bernal 02/24/2025 11:27 AM EDT [facility] Device ID [id number] 02/24/2025 11:27 AM EDT [facility] Specimen Type POC Capillary 02/24/2025 11:27 AM EDT [facility] Blood Capillary blood specimen / Unknown 02/24/2025 11:26 AM EDT 02/24/2025 11:27 AM EDT us Luda Ralph MD LAB POINT OF CARE TE ST DOCKED DEVICE UNSOLICITED RESULTS Final Result Performing Organization Address City/[facility] de Phone Number [facility] [address] [place] [address] * [place] CR[facility], E/M 30-74 MINUTES (02/24/2025 7:08 [...] POCT glucose meter (02/24/2025 5:20 AM EDT) [facility] POCT Glucose 180(H) 74 - 99 mg/dL 02/24/2025 5:22 AM EDT [facility] Comment:Accuracy of a glucos e result [...] testing. Comment 02/24/2025 5:22 AM EDT [facility] Manager Estate ID Daniela Mcbride 02/24/2025 5:22 AM EDT [facility] Device ID [id number] 02/24/2025 5:22 AM EDT [facility] Specimen Type POC Capillary 02/24/2025 5:22 AM EDT [facility] Blood Capillary blood specimen / Unknown 02/24/2025 5:20 AM EDT 02/24/2025 5:22 AM EDT Luda Ralph MD LAB POINT OF CARE TE ST DOCKED DEVICE UNSOLICITED RESULTS Final Result [facility] [address] [place] [address] * (ABNORMAL) Cystatin C (02/24/2025 1:01 AM EDT) Pathologist [facility] Cystatin C 2.5(H) 0.61 - 0.95 mg/L 02/24/2025 10:16 AM EDT [facility] Blood Venous blood specimen / Unknown Venipuncture / Unknown 02/24/2025 1:01 AM EDT 02/24/2025 1:06 AM EDT us Luda Ralph MD LAB BLOOD ORDERABLES Final R esult [facility] [address] [place] [id number] * (ABNORMAL) CBC and Differential (02/24/2025 1:01 AM EDT) Pathologist [facility] WBC Count 9.39 3.70 - 10.30 10*3/uL LAB HEMATOLOGY METHOD 02/24/2025 1:16 AM EDT [facility] RBC Count 3.53(L) 3.90 - 5.20 10*6/uL LAB HEMATOLOGY METHOD 02/24/2025 1:16 AM EDT [facility] HGB 9.1(L) 11.2 - 15.7 g/dL LAB HEMATOLOGY METHOD 02/24/2025 1:16 AM EDT [facility] HCT 28.3(L) 34.0 - 45.0 % LAB HEMATOLOGY METHOD 02/24/2025 1:16 AM EDT [facility] Platelet Count 315 155 - 369 10*3/uL LAB HEMATOLOGY METHOD 02/24/2025 1:16 AM EDT [facility] MCV 80 79 - 98 fL LAB HEMATOLOGY METHOD 02/24/2025 1:16 AM EDT [facility] MCH 25.8(L) 26.0 - 32.0 pg LAB HEMATOLOGY METHOD 02/24/2025 1:16 AM EDT [facility] MCHC 32.2 30.7 - 35.5 g/dL LAB HEMATOLOGY METHOD 02/24/2025 1:16 AM EDT [facility] RDW 15.2(H) 11.5 - 14.5 % LAB HEMATOLOGY METHOD 02/24/2025 1:16 AM EDT [facility] MPV 9.3 8.8 - 12.5 fL LAB HEMATOLOGY METHOD 02/24/2025 1:16 AM EDT [facility] nRBC 0.0 <=0.0 per 100 WBCs LAB HEMATOLOGY METHOD 02/24/2025 1:16 AM EDT [facility] Differential Type Automated LAB HEMATOLOGY METHOD 02/24/2025 1:16 AM EDT [facility] Neutrophils % 71 % LAB HEMATOLOGY METHOD 02/24/2025 1:16 AM EDT [facility] Lymphocytes % 15 % LAB HEMATOLOGY METHOD 02/24/2025 1:16 AM EDT [facility] Monocytes % 13 % LAB HEMATOLOGY METHOD 02/24/2025 1:16 AM EDT [facility] Eosinophils % 0 % LAB HEMATOLOGY METHOD 02/24/2025 1:16 AM EDT [facility] Basophils % 0 % LAB HEMATOLOGY METHOD 02/24/2025 1:16 AM EDT [facility] Immature Granulocytes % 1 % LAB HEMATOLOGY METHOD 02/24/2025 1:16 AM EDT [facility] Neutrophils Absolute 6.64(H) 1.60 - 6.10 10*3/uL LAB HEMATOLOGY METHOD 02/24/2025 1:16 AM EDT [facility] Lymphocytes Absolute 1.40 1.20 - 3.90 10*3/uL LAB HEMATOLOGY METHOD 02/24/2025 1:16 AM EDT [facility] Monocytes Absolute 1.25(H) 0.30 - 0.90 10*3/uL LAB HEMATOLOGY METHOD 02/24/2025 1:16 AM EDT [facility] Eosinophils Absolute 0.02 0.00 - 0.50 10*3/uL LAB HEMATOLOGY METHOD 02/24/2025 1:16 AM EDT [facility] Basophils Absolute 0.02 0.00 - 0.10 10*3/uL LAB HEMATOLOGY METHOD 02/24/2025 1:16 AM EDT [facility] Immature Granulocytes Absolute 0.06 0.00 - 0.06 10*3/uL LAB HEMATOLOGY METHOD 02/24/2025 1:16 AM EDT [facility] Blood Venous blood specimen / Unknown Venipuncture / Unknown 02/24/2025 1:01 AM EDT 02/24/2025 1:06 AM EDT Narrative [facility] - 02/24/2025 1:16 AM EDT Therapeutic decision making should be based on absolute values, rather than percentages. us Luda Ralph MD LAB BLOOD ORDERABLES Final R esult [facility] [address] [place] [address] * (ABNORMAL) Comprehensive metabolic panel (02/24/2025 1:01 AM EDT) Glucose, Plasma 152(H) 74 - 99 mg/dL 02/24/2025 1:44 AM EDT [facility] BUN, Plasma 40(H) 8 - 23 mg/dL 02/24/2025 1:44 AM EDT [facility] Creatinine, Plasma 2.04(H) 0.60 - 1.10 mg/dL 02/24/2025 1:44 AM EDT [facility] BUN/Creatinine Ratio 20 02/24/2025 1:44 AM EDT [facility] Sodium, Plasma 132(L) 136 - 145 mmol/L 02/24/2025 1:44 AM EDT [facility] Potassium, Plasma 4.9 3.6 - 4.9 mmol/L 02/24/2025 1:44 AM EDT [facility] Chloride, Plasma 97 97 - 107 mmol/L 02/24/2025 1:44 AM EDT [facility] CO2, Plasma 22 22 - 29 mmol/L 02/24/2025 1:44 AM EDT [facility] Anion Gap 13 6 - 16 mmol/L 02/24/2025 1:44 AM EDT [facility] Total Calcium, Plasma 8.6(L) 8.9 - 10.2 mg/dL 02/24/2025 1:44 AM EDT [facility] Total Protein 6.9 6.3 - 7.9 g/dL 02/24/2025 1:44 AM EDT [facility] Albumin, Plasma 3.3(L) 3.5 - 5.2 g/dL 02/24/2025 1:44 AM EDT [facility] AST, Plasma 16 10 - 35 U/L 02/24/2025 1:44 AM EDT [facility] Comment:Hemolyzed, result ma y be falsely increased. ALT, Plasma 15 10 - 35 U/L 02/24/2025 1:44 AM EDT [facility] Alkaline Phosphatase, Plasma 105 46 - 142 U/L 02/24/2025 1:44 AM EDT [facility] Total Bilirubin, Plasma <0.2(L) 0.2 - 1.1 mg/dL 02/24/2025 1:44 AM EDT [facility] eGFRcr 26.6 mL/min/1.7 3m*2 02/24/2025 1:44 AM EDT [facility] Comment:Reported eGFRcr in m L/min/1.73m2 is based the CKD-EPI 2020 equation that does not use a race coefficient. Blood Venous blood specimen / Unknown Venipuncture / Unknown 02/24/2025 1:01 AM EDT 02/24/2025 1:06 AM EDT Luda Ralph MD LAB BLOOD ORDERABLES Final R [facility] Performing Organization Address City/[facility]/ZIP Co de Phone Number [facility] [address] [place] [address] * (ABNORMAL) Ionized calcium, whole blood (02/24/2025 1:01 AM EDT) Ionized Calcium, Whole Blood 4.4(L) 4.6 - 5.1 mg/dL LAB HEMATOLOGY METHOD 02/24/2025 1:14 AM EDT [facility] Blood Venous blood specimen / Unknown Venipuncture / Unknown 02/24/2025 1:01 AM EDT 02/24/2025 1:13 AM EDT us Luda Ralph MD LAB BLOOD ORDERABLES Final R esult Performing Organization Address City/[facility]/ZIP Co de Phone Number [facility] [address] [place] [address] * Phosphorus (02/24/2025 1:01 AM EDT) Phosphorus, Plasma 3.0 2.5 - 4.5 mg/dL 02/24/2025 1:44 AM EDT [facility] Blood Venous blood specimen / Unknown Venipuncture / Unknown 02/24/2025 1:01 AM EDT 02/24/2025 1:06 AM EDT Luda Ralph MD LAB BLOOD ORDERABLES Final R esult Performing Organization Address City/[facility] Co de Phone Number [facility] [address] [place] [address] * Magnesium, Plasma (02/24/2025 1:01 AM EDT) Magnesium, Plasma 2.2 1.9 - 2.4 mg/dL 02/24/2025 1:44 AM EDT [facility] Blood Venous blood specimen / Unknown Venipuncture / Unknown 02/24/2025 1:01 AM EDT 02/24/2025 1:06 AM EDT Luda Ralph MD LAB BLOOD ORDERABLES Final R esult Performing Organization Address [facility] [place] [address] * (ABNORMAL) Procalcitonin (02/24/2025 1:01 AM EDT) Procalcitonin, Plasma 0.12(H) <0.09 ng/mL 02/24/2025 1:44 AM EDT [facility] Blood Venous blood specimen / Unknown Venipuncture / Unknown 02/24/2025 1:01 AM EDT 02/24/2025 1:06 AM EDT Narrative [facility] - 02/24/2025 1:44 AM EDT [...] predict 28 day mortality risk. Please consult [email or web address] for more information. Test performed at [facility]. us Luda Ralph MD LAB BLOOD ORDERABLES Final R esult [facility] [address] [place] [address] * (ABNORMAL) Blood gas panel, venous (02/24/2025 1:01 AM EDT) pH, Venous 7.43 7.32 - 7.43 LAB HEMATOLOGY METHOD 02/24/2025 1:19 AM EDT [facility] pCO2, Venous 40 37 - 52 mmHg LAB HEMATOLOGY METHOD 02/24/2025 1:19 AM EDT [facility] pO2, Venous 143(H) 25 - 40 mmHg LAB HEMATOLOGY METHOD 02/24/2025 1:19 AM EDT [facility] SO2, Measured, Venous 98(H) 65 - 80 % LAB HEMATOLOGY METHOD 02/24/2025 1:19 AM EDT [facility] Base Excess, Venous 1.9 -2.0 - 3.0 mmol/L LAB HEMATOLOGY METHOD 02/24/2025 1:19 AM EDT [facility] Bicarbonate, Calculated, Venous 27(H) 22 - 26 mmol/L LAB HEMATOLOGY METHOD 02/24/2025 1:19 AM EDT [facility] Hematocrit, Whole Blood 27.7(L) 34.0 - 45.0 % LAB HEMATOLOGY METHOD 02/24/2025 1:19 AM EDT [facility] Sodium, Whole Blood 132(L) 136 - 145 mmol/L LAB HEMATOLOGY METHOD 02/24/2025 1:19 AM EDT [facility] Potassium, Whole Blood 4.3 3.6 - 4.9 mmol/L LAB HEMATOLOGY METHOD 02/24/2025 1:19 AM EDT [facility] Chloride, Whole Blood 99 97 - 107 mmol/L LAB HEMATOLOGY METHOD 02/24/2025 1:19 AM EDT [facility] Glucose, Whole Blood 154(H) 74 - 99 mg/dL LAB HEMATOLOGY METHOD 02/24/2025 1:19 AM EDT [facility] Lactate, Venous, Whole Blood 0.9 0.5 - 2.2 mmol/L LAB HEMATOLOGY METHOD 02/24/2025 1:19 AM EDT [facility] Ionized Calcium, Whole Blood 4.2(L) 4.6 - 5.1 mg/dL LAB HEMATOLOGY METHOD 02/24/2025 1:19 AM EDT [facility] Blood Venous blood specimen / Unknown Venipuncture / Unknown 02/24/2025 1:01 AM EDT 02/24/2025 1:13 AM EDT us Luda Ralph MD LAB BLOOD ORDERABLES Final R esult [facility] [address] [place] [address] * (ABNORMAL) POCT glucose meter (02/24/2025 1:00 [...] Comment 02/24/2025 1:02 AM EDT HEALTHCARE LAB Manager Estate ID Daniela Mcbride 02/24/2025 1:02 AM EDT HEALTHCARE LAB Device ID [id number] 02/24/2025 1:02 AM EDT HEALTHCARE LAB Specimen Type POC Capillary 02/24/2025 1:02 AM EDT [facility] Blood Capillary blood specimen / Unknown 02/24/2025 1:00 AM EDT 02/24/2025 1:02 AM EDT us Luda Ralph MD LAB POINT OF CARE TE ST DOCKED DEVICE UNSOLICITED RESULTS Final Result Performing Organization Address City/[facility]/ZIP Co de Phone Number HEALTHCARE LAB [address] [place] [address] * (ABNORMAL) POCT glucose meter (02/23/2025 5:07 [...] Comment 02/23/2025 5:08 PM EDT HEALTHCARE LAB Manager Estate ID WetzoldTemi 02/23/2025 5:08 PM EDT HEALTHCARE LAB Device ID [id number] 02/23/2025 5:08 PM EDT [facility] Specimen Type POC Capillary 02/23/2025 5:08 PM EDT [facility] Blood Capillary blood specimen / Unknown 02/23/2025 5:07 PM EDT 02/23/2025 5:08 PM EDT us Luda Ralph MD LAB POINT OF CARE TE ST DOCKED DEVICE UNSOLICITED RESULTS Final Result Performing Organization Address City/[facility]/ZIP Co de Phone Number [facility] [address] [place] [address] * Sodium, urine, random (02/23/2025 3:12 PM EDT) Sodium, Urine 31 mmol/L 02/23/2025 4:03 PM EDT [facility] Urine Urine specimen from urinary conduit / Unknown Non-blood Collection / Unknown 02/23/2025 3:12 PM EDT 02/23/2025 3:24 PM EDT us Luda Ralph MD LAB URINE ORDERABLES Final R esult [facility] [address] [place] [address] * Osmolality, urine (02/23/2025 3:12 PM EDT) Osmolality, Urine 408 50 - 1,200 mOsm/kg 02/23/2025 3:59 PM EDT [facility] Urine Urine specimen from urinary conduit / Unknown Non-blood Collection / Unknown 02/23/2025 3:12 PM EDT 02/23/2025 3:23 PM EDT us Luda Ralph MD LAB URINE [place] [address] * Osmolality (02/23/2025 3:04 PM EDT) Osmolality, Serum 289 280 - 301 mOsm/Kg 02/23/2025 4:11 PM EDT [facility] Blood Venous blood specimen / Unknown Venipuncture / Unknown 02/23/2025 3:04 PM EDT 02/23/2025 3:13 PM EDT us Luda Ralph MD LAB BLOOD ORDERABLES Final R esult Performing Organization Address City/[facility]/ZIP Co de Phone Number [facility] [address] [place] [address] * (ABNORMAL) Cystatin C (02/23/2025 3:04 PM EDT) Cystatin C 2.32(H) 0.61 - 0.95 mg/L 02/23/2025 3:44 PM EDT [facility] Blood Venous blood specimen / Unknown Venipuncture / Unknown 02/23/2025 3:04 PM EDT 02/23/2025 3:13 PM EDT us Luda Ralph MD LAB BLOOD ORDERABLES Final R esult Performing Organization Address City/[facility]/ZIP Co de Phone Number [facility] [address] [place] [address] * (ABNORMAL) Sodium (02/23/2025 3:04 PM EDT) [facility] Sodium, Plasma 129(L) 136 - 145 mmol/L 02/23/2025 3:44 PM EDT [facility] Blood Venous blood specimen / Unknown Venipuncture / Unknown 02/23/2025 3:04 PM EDT 02/23/2025 3:13 PM EDT Luda Ralph MD LAB BLOOD ORDERABLES Final R esult [facility] [address] [place] [address] * (ABNORMAL) POCT glucose meter (02/23/2025 11:43 AM EDT) [facility] POCT Glucose 222(H) 74 - 99 mg/dL [...] Comment 02/23/2025 11:44 AM EDT HEALTHCARE LAB Manager Estate ID Temi Mao 02/23/2025 11:44 AM EDT HEALTHCARE LAB Device ID [id number] 02/23/2025 11:44 AM EDT HEALTHCARE LAB Specimen Type POC Capillary 02/23/2025 11:44 AM EDT [facility] Blood Capillary blood specimen / Unknown 02/23/2025 11:43 AM EDT 02/23/2025 11:44 AM EDT us Luda Ralph MD LAB POINT OF CARE TE ST DOCKED DEVICE UNSOLICITED RESULTS Final Result Performing Organization Address City/[facility]/ZIP Co de Phone Number HEALTHCARE LAB [address] [place] [address] * Streptococcus pneumoniae and Legionella Urinary Antigen (02/23/2025 11:05 AM EDT) [facility] Legionella pneumophila serogroup 1 Antigen Result (Urine) Negative Negative 02/24/2025 7:01 AM EDT [facility] Streptococcus pneumoniae Antigen Result (Urine) Negative Negative 02/24/2025 7:01 AM EDT [facility] Urine Urine specimen obtained by clean catch procedure / Unknown Non-blood Collection / Unknown 02/23/2025 11:05 AM EDT 02/23/2025 11:16 AM EDT us Luda Ralph MD LAB MICROBIOLOGY - GENERAL O RDERABLES Final Result [facility] [address] [place] [address] * [place] [facility], E/M 30-74 MINUTES (02/23/2025 9:10 [...] Plasma 25.9 ug/mL 02/23/2025 9:20 AM EDT [facility] Blood Venous blood specimen / Unknown Venipuncture / Unknown 02/23/2025 8:34 AM EDT 02/23/2025 8:50 AM EDT Luda Ralph MD LAB BLOOD ORDERABLES Final R esult Performing Organization Address City/[facility]/ZIP Co de Phone Number [facility] [address] [place] [address] * (ABNORMAL) Sodium (02/23/2025 8:34 AM EDT) Sodium, Plasma 127(L) 136 - 145 mmol/L 02/23/2025 9:20 AM EDT [facility] Blood Venous blood specimen / Unknown Venipuncture / Unknown 02/23/2025 8:34 AM EDT 02/23/2025 8:50 AM EDT Luda Ralph MD LAB BLOOD ORDERABLES Final R esult Performing Organization Address City/[facility] Co de Phone Number [facility] [address] [place] [address] * (ABNORMAL) Blood gas panel, venous (02/23/2025 8:34 AM EDT) pH, Venous 7.39 7.32 - 7.43 LAB HEMATOLOGY METHOD 02/23/2025 8:52 AM EDT [facility] pCO2, Venous 44 37 - 52 mmHg LAB HEMATOLOGY METHOD 02/23/2025 8:52 AM EDT [facility] pO2, Venous 43(H) 25 - 40 mmHg LAB HEMATOLOGY METHOD 02/23/2025 8:52 AM EDT [facility] SO2, Measured, Venous 77 65 - 80 % LAB HEMATOLOGY METHOD 02/23/2025 8:52 AM EDT [facility] Base Excess, Venous 1.6 -2.0 - 3.0 mmol/L LAB HEMATOLOGY METHOD 02/23/2025 8:52 AM EDT [facility] Bicarbonate, Calculated, Venous 27(H) 22 - 26 mmol/L LAB HEMATOLOGY METHOD 02/23/2025 8:52 AM EDT [facility] Hematocrit, Whole Blood 27.4(L) 34.0 - 45.0 % LAB HEMATOLOGY METHOD 02/23/2025 8:52 AM EDT [facility] Sodium, Whole Blood 128(L) 136 - 145 mmol/L LAB HEMATOLOGY METHOD 02/23/2025 8:52 AM EDT [facility] Potassium, Whole Blood 4.7 3.6 - 4.9 mmol/L LAB HEMATOLOGY METHOD 02/23/2025 8:52 AM EDT [facility] Chloride, Whole Blood 93(L) 97 - 107 mmol/L LAB HEMATOLOGY METHOD 02/23/2025 8:52 AM EDT [facility] Glucose, Whole Blood 242(H) 74 - 99 mg/dL LAB HEMATOLOGY METHOD 02/23/2025 8:52 AM EDT [facility] Lactate, Venous, Whole Blood 1.1 0.5 - 2.2 mmol/L LAB HEMATOLOGY METHOD 02/23/2025 8:52 AM EDT [facility] Ionized Calcium, Whole Blood 4.6 4.6 - 5.1 mg/dL LAB HEMATOLOGY METHOD 02/23/2025 8:52 AM EDT [facility] Blood Venous blood specimen / Unknown Venipuncture / Unknown 02/23/2025 8:34 AM EDT 02/23/2025 8:50 AM EDT us Luda Ralph MD LAB BLOOD ORDERABLES Final R esult [facility] [address] [place] [address] * (ABNORMAL) POCT glucose meter (02/23/2025 5:13 AM EDT) [facility] POCT Glucose 255(H) 74 - 99 mg/dL 02/23/2025 5:14 AM EDT [facility] Comment:Accuracy of a glucos e [...] Comment 02/23/2025 5:14 AM EDT HEALTHCARE LAB Manager Estate ID Daniela Mcbride 02/23/2025 5:14 AM EDT HEALTHCARE LAB Device ID [id number] 02/23/2025 5:14 AM EDT HEALTHCARE LAB Specimen Type POC Capillary 02/23/2025 5:14 AM EDT [facility]ARE LAB Blood Capillary blood specimen / Unknown 02/23/2025 5:13 AM EDT 02/23/2025 5:14 AM EDT us Luda Ralph MD LAB POINT OF CARE TE ST DOCKED DEVICE UNSOLICITED RESULTS Final Result Performing Organization Address City/[facility] Co de Phone Number [facility]ALTHCARE LAB [address] [place] [address] * (ABNORMAL) POCT glucose meter (02/23/2025 2:11 AM EDT) [facility] POCT Glucose 224(H) 74 - 99 mg/dL 02/23/2025 2:12 AM EDT [facility] Comment:Accuracy of [...] Comment 02/23/2025 2:12 AM EDT HEALTHCARE LAB Manager Estate ID Daniela Mcbride 02/23/2025 2:12 AM EDT HEALTHCARE LAB Device ID [id number] 02/23/2025 2:12 AM EDT HEALTHCARE LAB Specimen Type POC Capillary 02/23/2025 2:12 AM EDT [facility]ALTH[facility]ARE LAB Blood Capillary blood specimen / Unknown 02/23/2025 2:11 AM EDT 02/23/2025 2:12 AM EDT us Luda Ralph MD LAB POINT OF CARE TE ST DOCKED DEVICE UNSOLICITED RESULTS Final Result Performing Organization Address City/[facility] Co de Phone Number [facility]ARE [facility] [address] [place] [address] * (ABNORMAL) Methicillin Resistant Staphylococcus aureus (MRSA) by PCR (02/23/2025 2:05 AM EDT) Methicillin Resistant Staphylococcus aureus (MRSA) by PCR Detected( A) Not Detected 02/23/2025 4:19 AM EDT [facility] Swab Both anterior nares / Unknown Non-blood Collection / Unknown 02/23/2025 2:05 AM EDT 02/23/2025 3:06 AM EDT Narrative [facility] - 02/23/2025 4:19 AM EDT This test is FDA approved for use with nares swab specimens using the eSwabs. This test is used for clinical purposes. It should not be regarded as investigational or for research. This laboratory is certified under the Clinical Laboratory improvement Amendments of 1988 (CLIA-88 as qualified to perform high complexity clinical laboratory testing. us Luda Rlaph MD LAB MICROBIOLOGY - GENERAL O RDERABLES Final Result [facility] [address] [place] [address] * (ABNORMAL) Nasopharyngeal Respiratory Panel (02/23/2025 2:05 AM EDT) Pathologist [facility] Human Rhinovirus/Ent erovirus PCR Result Detected( A) Not Detected 02/23/2025 5:07 AM EDT [facility] Swab Nasopharyngeal structure / Unknown Non-blood Collection / Unknown 02/23/2025 2:05 AM EDT 02/23/2025 3:06 AM EDT Narrative [facility] - 02/23/2025 5:07 AM EDT [...] Respiratory PCR Panel is performed using the [employer] ePlex instrument. This test is FDA approved for use with Nasopharyngeal swabs only. This test is used for clinical purposes. It should not be regarded as investigational or for research. The [facility] Clinical Microbiology Laboratory is certified under the Clinical Laboratory Improvement Amendments of 1988 (CLIA-88) as qualified to perform high complexity clinical laboratory testing. Luda Ralph MD LAB MICROBIOLOGY - GENERAL O RDERABLES Final Result Performing Organization Address [facility] Co de Phone Number [facility] [address] [place] [address] * Anti Xa Level Low Molecular Weight (02/23/2025 2:04 AM EDT) Anti Xa Level Low Molecular Weight Heparin 1.12 <2.00 IU/mL LAB COAGULATION METHOD 02/23/2025 2:44 AM EDT [facility] Blood Venous blood specimen / Unknown Venipuncture / Unknown 02/23/2025 2:04 AM EDT 02/23/2025 2:24 AM EDT Narrative [facility] - 02/23/2025 2:44 AM EDT Therapeutic Range: LMWH enoxaparin 1mg/kg/dose, 12hrs - peak (3-5 hours after dose): 0.5 - 1.0 IU/mL LMWH enoxaparin 1.5mg/kg/dose, 24hrs - peak (3-5 hours after dose): 1.0 - 2.0 IU/mL LMWH enoxaparin prophylaxis: Not established Luda Ralph MD LAB BLOOD ORDERABLES Final R esult Performing Organization Address [facility] Co de Phone Number [facility] [address] [place] [address] * (ABNORMAL) Troponin T, High Sensitivity, 2 Hour, Plasma (02/23/2025 2:04 AM EDT) Troponin T, High Sensitivity, 2 Hour 37(H) <14 ng/L 02/23/2025 2:52 AM EDT [facility] Troponin Delta Interpretation Not Calculated 02/23/2025 2:52 AM EDT [facility] Comment:Specimen not collect ed within acceptable timeframe. Delta will not be calculated. Blood Venous blood specimen / Unknown Venipuncture / Unknown 02/23/2025 2:04 AM EDT 02/23/2025 2:24 AM EDT Luda Ralph MD LAB BLOOD ORDERABLES Final R esult Performing Organization Address City/[facility]/ZIP Co de Phone Number [facility] [address] [place] [address] * (ABNORMAL) Sodium (02/23/2025 2:04 AM EDT) Sodium, Plasma 125(L) 136 - 145 mmol/L 02/23/2025 2:45 AM EDT [facility] Blood Venous blood specimen / Unknown Venipuncture / Unknown 02/23/2025 2:04 AM EDT 02/23/2025 2:24 AM EDT Luda Ralph MD LAB BLOOD ORDERABLES Final R esult Performing Organization Address City/[facility]/ZIP Co de Phone Number [facility] [address] [place] [address] * (ABNORMAL) Blood gas panel, venous (02/23/2025 2:04 AM EDT) pH, Venous 7.39 7.32 - 7.43 LAB HEMATOLOGY METHOD 02/23/2025 2:29 AM EDT [facility] pCO2, Venous 43 37 - 52 mmHg LAB HEMATOLOGY METHOD 02/23/2025 2:29 AM EDT [facility] pO2, Venous 71(H) 25 - 40 mmHg LAB HEMATOLOGY METHOD 02/23/2025 2:29 AM EDT [facility] SO2, Measured, Venous 94(H) 65 - 80 % LAB HEMATOLOGY METHOD 02/23/2025 2:29 AM EDT [facility] Base Excess, Venous 0.7 -2.0 - 3.0 mmol/L LAB HEMATOLOGY METHOD 02/23/2025 2:29 AM EDT [facility] Bicarbonate, Calculated, Venous 26 22 - 26 mmol/L LAB HEMATOLOGY METHOD 02/23/2025 2:29 AM EDT [facility] Hematocrit, Whole Blood 26.1(L) 34.0 - 45.0 % LAB HEMATOLOGY METHOD 02/23/2025 2:29 AM EDT [facility] Sodium, Whole Blood 127(L) 136 - 145 mmol/L LAB HEMATOLOGY METHOD 02/23/2025 2:29 AM EDT [facility] Potassium, Whole Blood 4.7 3.6 - 4.9 mmol/L LAB HEMATOLOGY METHOD 02/23/2025 2:29 AM EDT [facility] Chloride, Whole Blood 93(L) 97 - 107 mmol/L LAB HEMATOLOGY METHOD 02/23/2025 2:29 AM EDT [facility] Glucose, Whole Blood 221(H) 74 - 99 mg/dL LAB HEMATOLOGY METHOD 02/23/2025 2:29 AM EDT [facility] Lactate, Venous, Whole Blood 0.9 0.5 - 2.2 mmol/L LAB HEMATOLOGY METHOD 02/23/2025 2:29 AM EDT [facility] Ionized Calcium, Whole Blood 3.7(L) 4.6 - 5.1 mg/dL LAB HEMATOLOGY METHOD 02/23/2025 2:29 AM EDT [facility] Blood Venous blood specimen / Unknown Venipuncture / Unknown 02/23/2025 2:04 AM EDT 02/23/2025 2:25 AM EDT Luda Ralph MD LAB BLOOD ORDERABLES Final R esult [facility] [address] [place] [address] * Vancomycin, random (02/23/2025 12:05 AM EDT) Vancomycin, Random, Plasma <4.0 ug/mL 02/23/2025 12:44 AM EDT [facility] Blood Venous blood specimen / Unknown Venipuncture / Unknown 02/23/2025 12:05 AM EDT 02/23/2025 12:16 AM EDT Luda Ralhp MD LAB BLOOD ORDERABLES Final R esult Performing Organization Address City/[facility]/ZIP Co de Phone Number [facility] [address] [place] [address] * (ABNORMAL) Sodium (02/23/2025 12:05 AM EDT) Sodium, Plasma 127(L) 136 - 145 mmol/L 02/23/2025 12:44 AM EDT [facility] Blood Venous blood specimen / Unknown Venipuncture / Unknown 02/23/2025 12:05 AM EDT 02/23/2025 12:17 AM EDT us Luda Ralph MD LAB BLOOD ORDERABLES Final R esult Performing Organization Address [facility]/ZIP Co de Phone Number [facility] [address] [place] [address] * (ABNORMAL) Blood gas panel, venous (02/23/2025 12:05 AM EDT) pH, Venous 7.33 7.32 - 7.43 LAB HEMATOLOGY METHOD 02/23/2025 12:18 AM EDT [facility] pCO2, Venous 50 37 - 52 mmHg LAB HEMATOLOGY METHOD 02/23/2025 12:18 AM EDT [facility] pO2, Venous 60(H) 25 - 40 mmHg LAB HEMATOLOGY METHOD 02/23/2025 12:18 AM EDT [facility] SO2, Measured, Venous 89(H) 65 - 80 % LAB HEMATOLOGY METHOD 02/23/2025 12:18 AM EDT [facility] Base Excess, Venous 0.3 -2.0 - 3.0 mmol/L LAB HEMATOLOGY METHOD 02/23/2025 12:18 AM EDT [facility] Bicarbonate, Calculated, Venous 27(H) 22 - 26 mmol/L LAB HEMATOLOGY METHOD 02/23/2025 12:18 AM EDT [facility] Hematocrit, Whole Blood 28.9(L) 34.0 - 45.0 % LAB HEMATOLOGY METHOD 02/23/2025 12:18 AM EDT [facility] Sodium, Whole Blood 128(L) 136 - 145 mmol/L LAB HEMATOLOGY METHOD 02/23/2025 12:18 AM EDT [facility] Potassium, Whole Blood 4.7 3.6 - 4.9 mmol/L LAB HEMATOLOGY METHOD 02/23/2025 12:18 AM EDT [facility] Chloride, Whole Blood 93(L) 97 - 107 mmol/L LAB HEMATOLOGY METHOD 02/23/2025 12:18 AM EDT [facility] Glucose, Whole Blood 177(H) 74 - 99 mg/dL LAB HEMATOLOGY METHOD 02/23/2025 12:18 AM EDT [facility] Lactate, Venous, Whole Blood 1.7 0.5 - 2.2 mmol/L LAB HEMATOLOGY METHOD 02/23/2025 12:18 AM EDT [facility] Ionized Calcium, Whole Blood 4.4(L) 4.6 - 5.1 mg/dL LAB HEMATOLOGY METHOD 02/23/2025 12:18 AM EDT [facility] Blood Venous blood specimen / Unknown Venipuncture / Unknown 02/23/2025 12:05 AM EDT 02/23/2025 12:16 AM EDT Luda Ralph MD LAB BLOOD ORDERABLES Final R esult Performing Organization Address City/[facility]/ZIP Co de Phone Number [facility] [address] [place] [address] * (ABNORMAL) Troponin T, High Sensitivity, 0 Hour Plasma, Reflex to 2 Hour (02/23/2025 12:05 AM EDT) Troponin T, High Sensitivity, 0 Hour 40(H) <14 ng/L 02/23/2025 12:44 AM EDT [facility] Blood Venous blood specimen / Unknown Venipuncture / Unknown 02/23/2025 12:05 AM EDT 02/23/2025 12:17 AM EDT Luda Ralph MD LAB BLOOD ORDERABLES Final R esult [facility] [address] [place] [address] * (ABNORMAL) Phosphorus, Plasma (02/23/2025 12:05 AM EDT) Phosphorus, Plasma 2.4(L) 2.5 - 4.5 mg/dL 02/23/2025 12:44 AM EDT [facility] Blood Venous blood specimen / Unknown Venipuncture / Unknown 02/23/2025 12:05 AM EDT 02/23/2025 12:17 AM EDT Bobby Parra MD LAB BLOOD ORDERABLES Final R esult Performing Organization Address [facility]/ZIP Co de Phone Number [facility] [address] [place] [address] * (ABNORMAL) Magnesium, Plasma (02/23/2025 12:05 AM EDT) Magnesium, Plasma 2.5(H) 1.9 - 2.4 mg/dL 02/23/2025 12:44 AM EDT [facility] Blood Venous blood specimen / Unknown Venipuncture / Unknown 02/23/2025 12:05 AM EDT 02/23/2025 12:17 AM EDT Bobby Parra MD LAB BLOOD ORDERABLES Final R esult Performing Organization Address City/[facility] Co de Phone Number [facility] [address] [place] [address] * (ABNORMAL) Basic Metabolic Panel, Plasma (02/23/2025 12:05 AM EDT) Glucose, Plasma 180(H) 74 - 99 mg/dL 02/23/2025 12:44 AM EDT [facility] BUN, Plasma 42(H) 8 - 23 mg/dL 02/23/2025 12:44 AM EDT [facility] Creatinine, Plasma 2.26(H) 0.60 - 1.10 mg/dL 02/23/2025 12:44 AM EDT [facility] BUN/Creatinine Ratio 19 02/23/2025 12:44 AM EDT [facility] Sodium, Plasma 127(L) 136 - 145 mmol/L 02/23/2025 12:44 AM EDT [facility] Potassium, Plasma 4.9 3.6 - 4.9 mmol/L 02/23/2025 12:44 AM EDT [facility] Chloride, Plasma 91(L) 97 - 107 mmol/L 02/23/2025 12:44 AM EDT [facility] CO2, Plasma 23 22 - 29 mmol/L 02/23/2025 12:44 AM EDT [facility] Anion Gap 13 6 - 16 mmol/L 02/23/2025 12:44 AM EDT [facility] Total Calcium, Plasma 9.0 8.9 - 10.2 mg/dL 02/23/2025 12:44 AM EDT [facility] eGFRcr 23.5 mL/min/1.7 3m*2 02/23/2025 12:44 AM EDT [facility] Comment:Reported eGFRcr in m L/min/1.73m2 is based the CKD-EPI 2020 equation that does not use a race coefficient. Blood Venous blood specimen / Unknown Venipuncture / Unknown 02/23/2025 12:05 AM EDT 02/23/2025 12:17 AM EDT us Bobby Parra MD LAB BLOOD ORDERABLES Final R esult [facility] [address] [place] [address] * (ABNORMAL) POCT glucose meter (02/23/2025 12:04 [...] Comment 02/23/2025 12:06 AM EDT [facility] Manager Estate ID Daniela Mcbride 02/23/2025 12:06 AM EDT [facility] Device ID [id number] 02/23/2025 12:06 AM EDT [facility] Specimen Type POC Capillary 02/23/2025 12:06 AM EDT [facility] Blood Capillary blood specimen / Unknown 02/23/2025 12:04 AM EDT 02/23/2025 12:06 AM EDT Luda Ralph MD LAB POINT OF CARE TE ST DOCKED DEVICE UNSOLICITED RESULTS Final Result Performing Organization Address [facility] Co de Phone Number [facility] [address] [place] [address] * (ABNORMAL) Quantitative BAL/PAL/Bronch Wash Culture and Gram StainProtected Alveolar Lavage (02/23/2025 12:00 AM EDT) Culture [id number] CFU/mL Mixed upper respiratory jesus(A) 02/24/2025 12:09 PM EDT [facility] Comment:The organism value f or this result has been updated. These results have been appended to the previously preliminary verified report. Gram Stain Result Numerous Polymorphonuclear leukocytes(A) 02/24/2025 12:09 PM EDT [facility] Gram Stain Result Numerous Gram positive cocci in pairs(A) 02/24/2025 12:09 PM EDT [facility] Gram Stain Result Moderate Gram positive cocci in clusters(A) 02/24/2025 12:09 PM EDT [facility] Gram Stain Result Moderate Gram positive rods(A) 02/24/2025 12:09 PM EDT [facility] Protected Alveolar Lavage (Protected Alveolar Lavage) 02/23/2025 12:00 AM EDT 02/23/2025 1:17 AM EDT Luda Ralph MD LAB MICROBIOLOGY - GENERAL O RDERABLES Final Result Performing Organization Address City/[facility]/ZIP Co de Phone Number [facility] [address] [place] [address] * ECG Adult (02/22/2025 11:57 PM EDT) EKG DIAGNOSIS CLASS Abnormal MUSE ECG Ventricular Rate 81 BPM MUSE ECG Atrial Rate 81 BPM MUSE ECG OH Interval 204 ms MUSE ECG QRSD Interval 136 ms MUSE ECG QT Interval 428 ms MUSE ECG QTC Interval 497 ms MUSE ECG P Colton 58 degrees MUSE ECG R Colton -72 degrees MUSE ECG T Wave Colton 47 degrees MUSE ECG Diagnosis Normal sinus rhythm MUSE ECG Diagnosis Left axis deviation MUSE ECG Diagnosis Right bundle branch block MUSE ECG Diagnosis Low voltage chest leads MUSE ECG Diagnosis Abnormal ECG MUSE ECG Diagnosis Compared to last ECG MUSE ECG Diagnosis No significant change was found MUSE ECG Diagnosis Confirmed by Carson Multani ([id number]) on 02/23/2025 11:11:42 AM MUSE ECG 02/22/2025 11:5 7 PM EDT 02/23/2025 11:11 AM EDT us Luda Ralph MD ECG ORDERABLES Final Result Performing Organization Address City/[facility]/ZIP Co de Phone Number MUSE ECG * (ABNORMAL) Procalcitonin (02/22/2025 10:03 PM EDT) Procalcitonin, Plasma 0.21(H) <0.09 ng/mL 02/22/2025 10:48 PM EDT [facility] Blood Venous blood specimen / Unknown Venipuncture / Unknown 02/22/2025 10:03 PM EDT 02/22/2025 10:11 PM EDT Narrative [facility] - 02/22/2025 10:48 PM EDT [...] predict 28 day mortality risk. Please consult [email or web address] for more information. Test performed at [facility], Core Laboratory. Luda Ralph MD LAB BLOOD ORDERABLES Final R esult [facility] [address] [place] [address] * (ABNORMAL) N-Terminal Probnp (02/22/2025 10:03 PM EDT) Pathologist [facility] N-Terminal, PROBNP, Plasma 1,542(H) 0 - 899 pg/mL 02/22/2025 10:48 PM EDT [facility] Blood Venous blood specimen / Unknown Venipuncture / Unknown 02/22/2025 10:03 PM EDT 02/22/2025 10:11 PM EDT Bobby Parra MD LAB BLOOD ORDERABLES Final R esult Performing Organization Address [facility]/[place] [address] * (ABNORMAL) Multi Drug Resistance Test (02/22/2025 10:02 PM EDT) [facility] Culture Methicillin-Resist ant Staphylococcus aureus(AA) 02/24/2025 6:58 AM EDT [facility] Swab (Nares and Samantha Rectal) Non-blood Collection / Unknown 02/22/2025 10:02 PM EDT 02/22/2025 10:16 PM EDT Narrative [facility] - 02/24/2025 6:58 AM EDT This test was developed and its performance characteristics determined by the [facility] Clinical Microbiology Laboratory. Although the media is FDA-approved, it is not FDA-approved for all specimen types submitted. The FDA has determined that such clearance or approval is not necessary. This test is used for surveillance purposes. It should not be regarded as investigational or for research. The [facility] Clinical Microbiology Laboratory is certified under the Clinical Laboratory Improvement Amendments of 1988 (CLIA-88) as qualified to perform high complexity clinical laboratory testing. Bobby Parra MD LAB MICROBIOLOGY - GENERAL O RDERABLES Final Result Performing Organization Address City/[facility]/[place] [address] * Sahara auris Surveillance by PCR (02/22/2025 10:02 PM EDT) Sahara auris PCR Result Not Detected Not Detected 02/24/2025 7:03 AM EDT [facility] Swab (Axilla and Groin) Non-blood Collection / Unknown 02/22/2025 10:02 PM EDT 02/22/2025 10:16 PM EDT Narrative [facility] - 02/24/2025 7:03 AM EDT This PCR assay was developed and its performance characteristics determined by [facility] Clinical Laboratories as appropriate for clinical purposes. This assay has not been cleared or approved by the FDA, but is performed in a CLIA regulated laboratory that is qualified to perform high-complexity testing. Bobby Parra MD LAB MICROBIOLOGY - GENERAL O RDERABLES Final Result Performing Organization Address City/[facility] Co de Phone Number [facility] [address] [place] [address] * (ABNORMAL) Fentanyl Urine Confirm (02/22/2025 10:01 PM EDT) Fentanyl 1(H) <1 ng/mL 02/24/2025 9:18 AM EDT [facility] Norfentanyl 2(H) <2 ng/mL 02/24/2025 9:18 AM EDT [facility] Urine Urine specimen obtained by clean catch procedure / Unknown Non-blood Collection / Unknown 02/22/2025 10:01 PM EDT 02/22/2025 10:11 PM EDT Narrative [facility] - 02/24/2025 9:18 AM EDT Drug analysis is confirmed by LC-MS/MS (LC Tandem Mass Spectrometry) on Urine specimens. This test was developed and its performance characteristics determined by [facility] Clinical Laboratories. It has not been cleared or approved by the FDA. The laboratory is regulated under CLIA as qualified to perform high-complexity testing. This test is used for clinical purposes. Testing is performed at the [facility], Special Chemistry Laboratory. us Luda Morton MD LAB URINE ORDERABLES Final Result Performing Organization Address City/[facility]/ZIP Co de Phone Number [facility] [address] [place] [address] * SEND HECTOR MESSAGE (02/22/2025 10:01 PM EDT) Urine Urine specimen obtained by clean catch procedure / Unknown Non-blood Collection / Unknown 02/22/2025 10:01 PM EDT 02/22/2025 10:14 PM EDT Bobby Parra MD LAB URINE ORDERABLES Final R esult Performing Organization Address [facility] Co de Phone Number [facility] [address] [place] [address] * (ABNORMAL) Urine Culture (02/22/2025 10:01 PM EDT) Culture 100 CFU/mL Normal Urogenital Jesus(A) 02/24/2025 6:58 AM EDT [facility] Urine Urine specimen obtained by clean catch procedure / Unknown Non-blood Collection / Unknown 02/22/2025 10:01 PM EDT 02/22/2025 10:14 PM EDT Bobby Parra MD LAB MICROBIOLOGY - GENERAL O RDERABLES Final Result Performing Organization Address City/[facility] Co de Phone Number [facility] [address] [place] [address] * Urinalysis Microscopic Examination (02/22/2025 10:01 PM EDT) Urine Urine specimen obtained by clean catch procedure / Unknown Non-blood Collection / Unknown 02/22/2025 10:01 PM EDT 02/22/2025 10:11 PM EDT Bobby Parra MD LAB URINE ORDERABLES Final R esult [facility] [address] [place] [address] * Urine Salmon Panel (02/22/2025 10:01 PM EDT) Extra Sent for Culture 02/23/2025 12:01 AM EDT [facility] Urine Urine specimen obtained by clean catch procedure / Unknown Non-blood Collection / Unknown 02/22/2025 10:01 PM EDT 02/22/2025 10:14 PM EDT us Bobby Parra MD LAB URINE ORDERABLES Final R esult [facility] [address] [place] [address] * (ABNORMAL) Urinalysis with reflex microscopic (Culture NOT Included) (02/22/2025 10:01 PM EDT) Color, Urine Red LAB URINALYSIS - AUTOMATED METHOD 02/22/2025 11:13 PM EDT [facility] Clarity, Urine Cloudy LAB URINALYSIS - AUTOMATED METHOD 02/22/2025 11:13 PM EDT [facility] Spec [place], Urine 1.010 1.005 - 1.030 LAB URINALYSIS - AUTOMATED METHOD 02/22/2025 11:13 PM EDT [facility] pH, Urine 6.5 5.0 - 8.0 LAB URINALYSIS - AUTOMATED METHOD 02/22/2025 11:13 PM EDT [facility] Protein, Urine >=300(A) Negative mg/dL LAB URINALYSIS - AUTOMATED METHOD 02/22/2025 11:13 PM EDT [facility] Glucose, Urine Negative Negative mg/dL LAB URINALYSIS - AUTOMATED METHOD 02/22/2025 11:13 PM EDT [facility] Ketones, Urine Negative Negative mg/dL LAB URINALYSIS - AUTOMATED METHOD 02/22/2025 11:13 PM EDT [facility] Blood, Urine Large(A) Negative LAB URINALYSIS - AUTOMATED METHOD 02/22/2025 11:13 PM EDT [facility] Bilirubin, Urine Small(A) Negative LAB URINALYSIS - AUTOMATED METHOD 02/22/2025 11:13 PM EDT [facility] Urobilinogen, Urine 0.2 0.2 to 1.0 mg/dL LAB URINALYSIS - AUTOMATED METHOD 02/22/2025 11:13 PM EDT [facility] Leukocytes, Urine Large(A) Negative LAB URINALYSIS - AUTOMATED METHOD 02/22/2025 11:13 PM EDT [facility] Nitrite, Urine Negative Negative LAB URINALYSIS - AUTOMATED METHOD 02/22/2025 11:13 PM EDT [facility] RBC, Urine >50(A) 0 to 3 /HPF LAB URINALYSIS - AUTOMATED METHOD 02/22/2025 11:13 PM EDT [facility] WBC, Urine >50(A) 0 to 5 /HPF LAB URINALYSIS - AUTOMATED METHOD 02/22/2025 11:13 PM EDT [facility] Squamous Epithelial Cells 0 - 2 0 to 5 /HPF LAB URINALYSIS - AUTOMATED METHOD 02/22/2025 11:13 PM EDT [facility] Hyaline Casts 0 - 2 0 to 5 /LPF LAB URINALYSIS - AUTOMATED METHOD 02/22/2025 11:13 PM EDT [facility] Bacteria, Urine Negative Negative LAB URINALYSIS - AUTOMATED METHOD 02/22/2025 11:13 PM EDT [facility] Urine Urine specimen obtained by clean catch procedure / Unknown Non-blood Collection / Unknown 02/22/2025 10:01 PM EDT 02/22/2025 10:11 PM EDT Narrative [facility] - 02/22/2025 11:13 PM EDT Urinalysis dipstick results may be inaccurate due to specimen color or an interfering substance in the specimen. Bobby Parra MD LAB URINE ORDERABLES Final R esult [facility] [address] [place] [address] * Drug abuse screen (02/22/2025 10:01 PM EDT) Amphetamine Screen Urine Negative Cutoff: 500 ng/mL 02/23/2025 12:22 AM EDT [facility] Benzodiazepines Screen Urine Negative Cutoff: 200 ng/mL 02/23/2025 12:22 AM EDT [facility] Cannabinoid Screen Urine Negative Cutoff: 50 ng/mL 02/23/2025 12:22 AM EDT [facility] Cocaine Screen Urine Negative Cutoff: 300 ng/mL 02/23/2025 12:22 AM EDT [facility] Barbiturate Screen Urine Negative Cutoff: 200 ng/mL 02/23/2025 12:22 AM EDT [facility] Opiate Screen Urine Negative Cutoff: 300 ng/mL 02/23/2025 12:22 AM EDT [facility] Methadone Screen Urine Negative Cutoff: 300 ng/mL 02/23/2025 12:22 AM EDT [facility] Buprenorphine Screen Urine Negative Cutoff: 10 ng/mL 02/23/2025 12:22 AM EDT [facility] Fentanyl Screen Urine Presumptive positive. Confirmation by LC-MS/MS to follow. Cutoff: 1 ng/mL 02/23/2025 12:22 AM EDT [facility] Oxycodone Screen Urine Negative Cutoff: 100 ng/mL 02/23/2025 12:22 AM EDT [facility] Urine Urine specimen obtained by clean catch procedure / Unknown Non-blood Collection / Unknown 02/22/2025 10:01 PM EDT 02/22/2025 10:11 PM EDT Luda Morton MD LAB URINE ORDERABLES Final Result [facility] [address] [place] [address] * (ABNORMAL) POCT glucose meter (02/22/2025 9:38 PM EDT) [facility] POCT Glucose 156(H) 74 - 99 mg/dL [...] 02/22/2025 9:40 PM EDT [facility] Manager Estate ID Shiloh Friedman 02/23/20 9:40 PM EDT [facility] LAB Device ID [id number] 02/22/2025 9:40 PM EDT [facility] Specimen Type POC Capillary 02/22/2025 9:40 PM EDT [facility] Blood Capillary blood specimen / Unknown 02/22/2025 9:38 PM EDT 02/22/2025 9:40 PM EDT us Luda Ralph MD LAB POINT OF CARE TE ST DOCKED DEVICE UNSOLICITED RESULTS Final Result [facility] [address] [place] [address] * (ABNORMAL) POCT arterial blood gas gem (02/22/2025 9:05 PM EDT) pH, Arterial 7.45(H) 7.31 - 7.42 02/22/2025 9:06 PM EDT [facility] pCO2, Arterial 37 35 - 48 mm Hg 02/22/2025 9:06 PM EDT [facility] pO2, Arterial 86 >80 mm Hg 02/22/2025 9:06 PM EDT [facility] SO2, Arterial 98 94 - 98 % 02/22/2025 9:06 PM EDT [facility] FIO2 60.0 % 02/22/2025 9:06 PM EDT [facility] Base Excess, Arterial 1.7 -2 - 3 mmol/L 02/22/2025 9:06 PM EDT [facility] HCO3, Arterial 25.7 22 - 26 mmol/L 02/22/2025 9:06 PM EDT [facility] Total Hemoglobin, Arterial, Whole Blood 9.1(L) 11.2 - 15.7 g/dL 02/22/2025 9:06 PM EDT [facility] Hematocrit, Arterial 27.0(L) 34.0 - 45.0 % 02/22/2025 9:06 PM EDT [facility] Sodium, Arterial 125(L) 136 - 145 mmol/L 02/22/2025 9:06 PM EDT [facility] Potassium, Arterial 4.9 3.6 - 4.9 mmol/L 02/22/2025 9:06 PM EDT [facility] Comment:Hemolyzed, result ma y be falsely increased. Chloride, Whole Blood 95(L) 97 - 107 mmol/L 02/22/2025 9:06 PM EDT [facility] Glucose, Arterial 116(H) 74 - 99 mg/dL 02/22/2025 9:06 PM EDT [facility] Ionized Calcium, Arterial 4.8 4.6 - 5.1 mg/dL 02/22/2025 9:06 PM EDT [facility] Lactate, Arterial 0.8 0.5 - 1.6 mmol/L 02/22/2025 9:06 PM EDT [facility] Body Temperature 37.0 Celsius 02/22/2025 9:06 PM EDT [facility] pH, Temp Corrected, Arterial 7.45(H) 7.31 - 7.42 02/22/2025 9:06 PM EDT [facility] pCO2, Temp Corrected, Arterial 37 35 - 48 mm Hg 02/22/2025 9:06 PM EDT [facility] pO2, Temp Corrected, Arterial 86 >80 mm Hg 02/22/2025 9:06 PM EDT [facility] Manager Estate ID Slim Morton 02/22/2025 9:06 PM EDT [facility] Blood, Arterial Whole blood specimen / Unknown 02/22/2025 9:05 PM EDT 02/22/2025 9:06 PM EDT Luda Ralph MD LAB POINT OF CARE TE ST DOCKED DEVICE UNSOLICITED RESULTS Final Result Performing Organization Address City/[facility]/ZIP Co de Phone Number [facility] [address] [place] [address] * Blood Culture (Aerobic/Anaerobet Set) (02/22/2025 8:55 PM EDT) [facility] Culture No growth at day 5 02/27/2025 10:01 PM EDT [facility] Blood Structure of right hand / Unknown Venipuncture / Unknown 02/22/2025 8:55 PM EDT 02/22/2025 9:29 PM EDT Narrative [facility] - 02/27/2025 10:01 PM EDT Low blood volume submitted, results may be compromised Luda Morton MD LAB MICROBIOLOGY - GENERAL ORDERABLES Final Result [facility] [address] [place] [address] * Ionized calcium, serum (02/22/2025 8:36 PM EDT) Pathologist [facility] Ionized Calcium, Serum 4.8 4.6 - 5.3 mg/dL LAB HEMATOLOGY METHOD 02/22/2025 9:42 PM EDT [facility] Blood Venous blood specimen / Unknown Venipuncture / Unknown 02/22/2025 8:36 PM EDT 02/22/2025 8:53 PM EDT us Bobby Parra MD LAB BLOOD ORDERABLES Final R esult [facility] [address] [place] [address] * (ABNORMAL) CBC W/O Differential (02/22/2025 8:36 PM EDT) Pathologist [facility] WBC Count 7.98 3.70 - 10.30 10*3/uL LAB HEMATOLOGY METHOD 02/22/2025 8:44 PM EDT [facility] RBC Count 3.52(L) 3.90 - 5.20 10*6/uL LAB HEMATOLOGY METHOD 02/22/2025 8:44 PM EDT [facility] HGB 9.2(L) 11.2 - 15.7 g/dL LAB HEMATOLOGY METHOD 02/22/2025 8:44 PM EDT [facility] HCT 28.5(L) 34.0 - 45.0 % LAB HEMATOLOGY METHOD 02/22/2025 8:44 PM EDT [facility] Platelet Count 329 155 - 369 10*3/uL LAB HEMATOLOGY METHOD 02/22/2025 8:44 PM EDT [facility] MCV 81 79 - 98 fL LAB HEMATOLOGY METHOD 02/22/2025 8:44 PM EDT [facility] MCH 26.1 26.0 - 32.0 pg LAB HEMATOLOGY METHOD 02/22/2025 8:44 PM EDT [facility] MCHC 32.3 30.7 - 35.5 g/dL LAB HEMATOLOGY METHOD 02/22/2025 8:44 PM EDT [facility] RDW 14.6(H) 11.5 - 14.5 % LAB HEMATOLOGY METHOD 02/22/2025 8:44 PM EDT [facility] MPV 9.5 8.8 - 12.5 fL LAB HEMATOLOGY METHOD 02/22/2025 8:44 PM EDT [facility] nRBC 0.0 <=0.0 per 100 WBCs LAB HEMATOLOGY METHOD 02/22/2025 8:44 PM EDT [facility] Blood Venous blood specimen / Unknown Venipuncture / Unknown 02/22/2025 8:36 PM EDT 02/22/2025 8:40 PM EDT us Bobby Parra MD LAB BLOOD ORDERABLES Final R esult [facility] [address] [place] [address] * (ABNORMAL) Blood gas, venous (02/22/2025 8:13 PM EDT) pH, Venous 7.33 7.32 - 7.43 LAB HEMATOLOGY METHOD 02/22/2025 8:17 PM EDT [facility] pCO2, Venous 49 37 - 52 mmHg LAB HEMATOLOGY METHOD 02/22/2025 8:17 PM EDT [facility] pO2, Venous 27 25 - 40 mmHg LAB HEMATOLOGY METHOD 02/22/2025 8:17 PM EDT [facility] SO2, Measured, Venous 49(L) 65 - 80 % LAB HEMATOLOGY METHOD 02/22/2025 8:17 PM EDT [facility] Base Excess, Venous -0.1 -2.0 - 3.0 mmol/L LAB HEMATOLOGY METHOD 02/22/2025 8:17 PM EDT [facility] Bicarbonate, Calculated, Venous 26 22 - 26 mmol/L LAB HEMATOLOGY METHOD 02/22/2025 8:17 PM EDT [facility] Hematocrit, Whole Blood 27.0(L) 34.0 - 45.0 % LAB HEMATOLOGY METHOD 02/22/2025 8:17 PM EDT [facility] Sodium, Whole Blood 128(L) 136 - 145 mmol/L LAB HEMATOLOGY METHOD 02/22/2025 8:17 PM EDT [facility] Potassium, Whole Blood 5.3(H) 3.6 - 4.9 mmol/L LAB HEMATOLOGY METHOD 02/22/2025 8:17 PM EDT [facility] Chloride, Whole Blood 96(L) 97 - 107 mmol/L LAB HEMATOLOGY METHOD 02/22/2025 8:17 PM EDT [facility] Glucose, Whole Blood 106(H) 74 - 99 mg/dL LAB HEMATOLOGY METHOD 02/22/2025 8:17 PM EDT [facility] Lactate, Venous, Whole Blood 1.0 0.5 - 2.2 mmol/L LAB HEMATOLOGY METHOD 02/22/2025 8:17 PM EDT [facility] Ionized Calcium, Whole Blood 4.3(L) 4.6 - 5.1 mg/dL LAB HEMATOLOGY METHOD 02/22/2025 8:17 PM EDT [facility] Blood Venous blood specimen / Unknown Venipuncture / Unknown 02/22/2025 8:13 PM EDT 02/22/2025 8:16 PM EDT us Luda Morton MD LAB BLOOD ORDERABLES Final Result Performing Organization Address City/[facility]/ZIP Co de Phone Number [facility] [address] [place] [address] * EKG now - STAT (adult) (02/22/2025 8:10 PM EDT) EKG DIAGNOSIS CLASS Abnormal MUSE ECG Ventricular Rate 74 BPM MUSE ECG Atrial Rate 74 BPM MUSE ECG OH Interval 200 ms MUSE ECG QRSD Interval 136 ms MUSE ECG QT Interval 434 ms MUSE ECG QTC Interval 481 ms MUSE ECG P [place] 59 degrees MUSE ECG R [place] -84 degrees MUSE ECG T Wave [place] 48 degrees MUSE ECG Diagnosis Normal sinus [...] 9.2(H) <5.7 % 02/23/2025 1:40 PM EDT [facility] Blood Venous blood specimen / Unknown Venipuncture / Unknown 02/22/2025 6:41 PM EDT 02/22/2025 6:47 PM EDT Narrative [facility] - 02/23/2025 1:40 PM EDT HA1C Interpretive Data: Diagnosis of Diabetes: Diabetic > or = 6.5% Pre-diabetic 5.7 to 6.4% Non-diabetic < or = 5.6% Glycemic Targets for Type I and Type II Diabetics: Non- Adults <7.0% Adults <6.0% Children and Adolescents <7.5% Source: [place] [employer]. Standards of medical care in diabetes,2017. Diabetes Care.2017:40 (suppl 1):S1-S135. Bobby Parra MD LAB BLOOD ORDERABLES Final R esult [facility] [address] [place] [address] * (ABNORMAL) BNP (02/22/2025 6:41 PM EDT) N-Terminal, PROBNP, Plasma 1,679(H) 0 - 899 pg/mL 02/22/2025 8:39 PM EDT [facility] Blood Venous blood specimen / Unknown Venipuncture / Unknown 02/22/2025 6:41 PM EDT 02/22/2025 6:47 PM EDT Luda Morton MD LAB [place] [address] * Free T4, Plasma (02/22/2025 6:41 PM EDT) Free T4, Plasma 1.3 0.8 - 1.7 ng/dL 02/22/2025 7:24 PM EDT [facility] Blood Venous blood specimen / Unknown Venipuncture / Unknown 02/22/2025 6:41 PM EDT 02/22/2025 6:47 PM EDT Luda Morton MD LAB BLOOD ORDERABLES Final Result Performing Organization Address City/[facility]/[place] [address] * Thyroid Stimulating Hormone, Plasma (02/22/2025 6:41 PM EDT) Thyroid Stimulating Hormone, Plasma 1.03 0.40 - 4.20 uIU/mL 02/22/2025 7:24 PM EDT [facility] Blood Venous blood specimen / Unknown Venipuncture / Unknown 02/22/2025 6:41 PM EDT 02/22/2025 6:47 PM EDT Luda Morton MD LAB BLOOD ORDERABLES Final Result Performing Organization Address City/[facility]/[place] [address] * Ethyl Alcohol Plasma (02/22/2025 6:41 PM EDT) Ethanol Plasma <10 <10 mg/dL 02/22/2025 8:13 PM EDT [facility] Blood Venous blood specimen / Unknown Venipuncture / Unknown 02/22/2025 6:41 PM EDT 02/22/2025 8:00 PM EDT Narrative [facility] - 02/22/2025 8:13 PM EDT Enzymatic Assay: Performed on [employer]uf[employer]. us Luda Morton MD LAB BLOOD ORDERABLES Final Result [facility] [address] [place] [address] * (ABNORMAL) CBC w/diff (02/22/2025 6:41 PM EDT) WBC Count 9.69 3.70 - 10.30 10*3/uL LAB HEMATOLOGY METHOD 02/22/2025 6:54 PM EDT [facility] RBC Count 3.62(L) 3.90 - 5.20 10*6/uL LAB HEMATOLOGY METHOD 02/22/2025 6:54 PM EDT [facility] HGB 9.7(L) 11.2 - 15.7 g/dL LAB HEMATOLOGY METHOD 02/22/2025 6:54 PM EDT [facility] HCT 29.8(L) 34.0 - 45.0 % LAB HEMATOLOGY METHOD 02/22/2025 6:54 PM EDT [facility] Platelet Count 306 155 - 369 10*3/uL LAB HEMATOLOGY METHOD 02/22/2025 6:54 PM EDT [facility] MCV 82 79 - 98 fL LAB HEMATOLOGY METHOD 02/22/2025 6:54 PM EDT [facility] MCH 26.8 26.0 - 32.0 pg LAB HEMATOLOGY METHOD 02/22/2025 6:54 PM EDT [facility] MCHC 32.6 30.7 - 35.5 g/dL LAB HEMATOLOGY METHOD 02/22/2025 6:54 PM EDT [facility] RDW 14.6(H) 11.5 - 14.5 % LAB HEMATOLOGY METHOD 02/22/2025 6:54 PM EDT [facility] MPV 9.4 8.8 - 12.5 fL LAB HEMATOLOGY METHOD 02/22/2025 6:54 PM EDT [facility] nRBC 0.0 <=0.0 per 100 WBCs LAB HEMATOLOGY METHOD 02/22/2025 6:54 PM EDT [facility] Differential Type Automated LAB HEMATOLOGY METHOD 02/22/2025 6:54 PM EDT [facility] Neutrophils % 69 % LAB HEMATOLOGY METHOD 02/22/2025 6:54 PM EDT [facility] Lymphocytes % 13 % LAB HEMATOLOGY METHOD 02/22/2025 6:54 PM EDT [facility] Monocytes % 13 % LAB HEMATOLOGY METHOD 02/22/2025 6:54 PM EDT [facility] Eosinophils % 4 % LAB HEMATOLOGY METHOD 02/22/2025 6:54 PM EDT [facility] Basophils % 0 % LAB HEMATOLOGY METHOD 02/22/2025 6:54 PM EDT [facility] Immature Granulocytes % 1 % LAB HEMATOLOGY METHOD 02/22/2025 6:54 PM EDT [facility] Neutrophils Absolute 6.66(H) 1.60 - 6.10 10*3/uL LAB HEMATOLOGY METHOD 02/22/2025 6:54 PM EDT [facility] Lymphocytes Absolute 1.29 1.20 - 3.90 10*3/uL LAB HEMATOLOGY METHOD 02/22/2025 6:54 PM EDT [facility] Monocytes Absolute 1.27(H) 0.30 - 0.90 10*3/uL LAB HEMATOLOGY METHOD 02/22/2025 6:54 PM EDT [facility] Eosinophils Absolute 0.38 0.00 - 0.50 10*3/uL LAB HEMATOLOGY METHOD 02/22/2025 6:54 PM EDT [facility] Basophils Absolute 0.03 0.00 - 0.10 10*3/uL LAB HEMATOLOGY METHOD 02/22/2025 6:54 PM EDT [facility] Immature Granulocytes Absolute 0.06 0.00 - 0.06 10*3/uL LAB HEMATOLOGY METHOD 02/22/2025 6:54 PM EDT [facility] Blood Venous blood specimen / Unknown Venipuncture / Unknown 02/22/2025 6:41 PM EDT 02/22/2025 6:47 PM EDT [facility] - 02/22/2025 6:54 PM EDT Therapeutic decision making should be based on absolute values, rather than percentages. us Luda Morton MD LAB BLOOD ORDERABLES Final Result [facility] [address] [place] [address] * (ABNORMAL) CMP (02/22/2025 6:41 PM EDT) Glucose, Plasma 144(H) 74 - 99 mg/dL 02/22/2025 7:24 PM EDT [facility] BUN, Plasma 42(H) 8 - 23 mg/dL 02/22/2025 7:24 PM EDT [facility] Creatinine, Plasma 2.39(H) 0.60 - 1.10 mg/dL 02/22/2025 7:24 PM EDT [facility] BUN/Creatinine Ratio 18 02/22/2025 7:24 PM EDT [facility] Sodium, Plasma 125(L) 136 - 145 mmol/L 02/22/2025 7:24 PM EDT [facility] Potassium, Plasma 4.6 3.6 - 4.9 mmol/L 02/22/2025 7:24 PM EDT [facility] Chloride, Plasma 89(L) 97 - 107 mmol/L 02/22/2025 7:24 PM EDT [facility] CO2, Plasma 26 22 - 29 mmol/L 02/22/2025 7:24 PM EDT [facility] Anion Gap 10 6 - 16 mmol/L 02/22/2025 7:24 PM EDT [facility] Total Calcium, Plasma 9.0 8.9 - 10.2 mg/dL 02/22/2025 7:24 PM EDT [facility] Total Protein 7.3 6.3 - 7.9 g/dL 02/22/2025 7:24 PM EDT [facility] Albumin, Plasma 3.6 3.5 - 5.2 g/dL 02/22/2025 7:24 PM EDT [facility] AST, Plasma 13 10 - 35 U/L 02/22/2025 7:24 PM EDT [facility] ALT, Plasma 19 10 - 35 U/L 02/22/2025 7:24 PM EDT [facility] Alkaline Phosphatase, Plasma 144(H) 46 - 142 U/L 02/22/2025 7:24 PM EDT [facility] Total Bilirubin, Plasma <0.2(L) 0.2 - 1.1 mg/dL 02/22/2025 7:24 PM EDT [facility] eGFRcr 22.0 mL/min/1.7 3m*2 02/22/2025 7:24 PM EDT [facility] Comment:Reported eGFRcr in m L/min/1.73m2 is based the CKD-EPI 2020 equation that does not use a race coefficient. Blood Venous blood specimen / Unknown Venipuncture / Unknown 02/22/2025 6:41 PM EDT 02/22/2025 6:47 PM EDT Luda Morton MD LAB BLOOD ORDERABLES Final Result [facility] [address] [place] [address] * (ABNORMAL) POCT venous blood gas gem (02/22/2025 6:37 PM EDT) pH, Venous 7.28(L) 7.32 - 7.43 02/22/2025 6:38 PM EDT [facility] pCO2, Venous 60(HH) 37 - 52 mm Hg 02/22/2025 6:38 PM EDT [facility] pO2, Venous 41(H) 25 - 40 mm Hg 02/22/2025 6:38 PM EDT [facility] SO2, Venous 72 65 - 80 % 02/22/2025 6:38 PM EDT [facility] Base Excess/Deficit, Venous 0.8 -2 - 3 mmol/L 02/22/2025 6:38 PM EDT [facility] HCO3, Venous 28.2(H) 22 - 26 mmol/L 02/22/2025 6:38 PM EDT [facility] Hemoglobin, Venous 9.2(L) 11.2 - 15.7 g/dL 02/22/2025 6:38 PM EDT [facility] Hematocrit, Venous 28.0(L) 34.0 - 45.0 % 02/22/2025 6:38 PM EDT [facility] Sodium, Venous 126(L) 136 - 145 mmol/L 02/22/2025 6:38 PM EDT [facility] Potassium, Venous 4.6 3.6 - 4.9 mmol/L 02/22/2025 6:38 PM EDT [facility] Comment:Hemolyzed, result ma y be falsely increased. POCT Chloride, Venous 94(L) 97 - 107 mmol/L 02/22/2025 6:38 PM EDT [facility] Glucose, Venous 139(H) 74 - 99 mg/dL 02/22/2025 6:38 PM EDT [facility] Ionized Calcium, Venous 4.9 4.6 - 5.1 mg/dL 02/22/2025 6:38 PM EDT [facility] Lactate, Venous 0.6 0.5 - 2.2 mmol/L 02/22/2025 6:38 PM EDT [facility] Body Temperature 37.0 Celsius 02/22/2025 6:38 PM EDT [facility] pH, Temp Corrected, Venous 7.28(L) 7.32 - 7.43 02/22/2025 6:38 PM EDT [facility] pCO2, Temp Corrected, Venous 60(HH) 37 - 52 mm Hg 02/22/2025 6:38 PM EDT [facility] pO2, Temp Corrected, Venous 41(H) 25 - 40 mm Hg 02/22/2025 6:38 PM EDT [facility] Manager Estate ID Joao Jackson 02/22/2025 6:38 PM EDT [facility] Blood, Venous Whole blood specimen / Unknown 02/22/2025 6:37 PM EDT 02/22/2025 6:38 PM EDT us Generic Provider Poct LAB POINT OF CARE TEST DOCKED DEVICE UNSOLICITED RESULTS Final Result [facility] [address] [place] [address] * (ABNORMAL) POCT glucose meter (02/22/2025 6:17 [...] 02/22/2025 6:19 PM EDT [facility] Manager Estate ID Tracy Vasques 02/22/2025 6:19 PM EDT [facility] Device ID [id number] 02/22/2025 6:19 PM EDT [facility] Specimen Type POC Capillary 02/22/2025 6:19 PM EDT [facility] Blood Capillary blood specimen / Unknown 02/22/2025 6:17 PM EDT 02/22/2025 6:19 PM EDT us Generic Provider Poct LAB POINT OF CARE TEST DOCKED DEVICE UNSOLICITED RESULTS Final Result [facility] [address] [place] [address] * INTUBATION (02/22/2025 6:13 PM EDT) Narrative [...] Until Tue03/02/25 at 1304, Routine, nausea, vomiting ondansetron (Zofran) [...] Gayle Light, JIMI)175 (Given - Provider: Gayle Light RN - [...] Gerry Ambriz)1354 (Given - Provider: Gayle Light RN)2045 (Given - Provider: Gerry Ambriz) 0551 (Given - Provider: Gerry Ambriz)1333 (Given - Provider: Gayle Light RN)2110 (Given - Provider: Aleyda Holley RN) 0544 (Given - Provider: Aleyda Holley RN) insulin glargine-yfgn 100 UNIT/ML injection 30 Units 30 Units, Subcutaneous, Nightly, First dose (after last modification) on Tue02/27/25 at 2100, Until Discontinued, Routine 204 (Given - Provider: Gerry Ambriz) 2110 (Given - Provider: Aleyda Holley, JIMI) insulin [...] - Provider: Yves Roberts)1330 (Given - Provider: Gayledrew Light RN)1835 (Given - Provider: Gayle Light RN) 0822 [...] met) 031 (Not Given - Provider: Aleyda Holley, JIMI - Reason: Order parameters not met) magnesium [...] 0824 (Given - Provider: Gayle Light RN) pregabalin (Lyrica) capsule 50 mg 50 mg, [...] documented as of this encounter Care Teams Edger Machine Setter Relationship Specialty Start Date End Date Vignesh Pickens MD [address] [place] [address] PCP - General 12/31/24 Cayla Erazo APRN, [place] [address] [facility] [address] [place] [address] Nurse Practitioner Urology 12/20/24 documented as of this encounter
--- OUTSIDE RECORDS SUMMARY | 2025-02-28 08:15 | XMS_ITS | Encounter Summary ---
Author Organization [facility] Address [address] [place] [address] Care Team Providers Care Rn Residential Name Role Phone Cayla Erazo APRN, DNP Unavailable [phone] Vignesh Pickens MD Primary Care Provider [phone] Reason for Visit * Auth/Cert (Routine) Specialty Diagnoses / Procedures Referred By Contac t Referred To Contact Diagnoses Sepsis (CMS/HCC) UTI, CKD, Hyponatremia, COPD exacerbation Bobby Parra MD [address] [place] [phone] Phone: tel: fax: PAV A Inpatient [address] [place] [phone] Referral ID Status Reason Start Date Expiration Date Visits Re quested Visits Authorized [id number] 1 1 Encounter Details Date Type Department Care Team (Latest Contact Info) Description 02/28/2025 8:15 AM EDT Office Visit [facility] [address] [place] [address] Bert Lim, DMD [address] [place] [address] Caries (Primary Dx) Social History Tobacco Use [...] in the past 12 m [facility], were you homeless or living [...] drink first t rodríguez in the morning (EYE-VISION TEACHER) to steady your nerves or to get rid of a hangover? 0 08/15/2024 CAGE Questionnaire Score 0 024 Utilities Answer Date Recorded In the past 12 months has th [employer], gas, oil, or water company threatened to [...] Bert Lim DMD [facility] team sports sales associate PGY-1 Pager #: [phone] Cosigned by Froylan Summers DMD at 03/01/2025 8:09 AM EDT Associated attestation - Froylan Summers DMD - 03/01/2025 8:09 AM EDT I was present during all critical and madden portions of the procedure(s) and immediately available [facility] services the entire duration. See resident note for details. documented in this encounter Plan of Treatment Upcoming Encounters Date Type Department Care Team (Late st Contact Info) Description 05/16/2025 8:00 AM EDT Office Visit [facility] [place] [address] [facility], [address] [place] [address] Karly Gracia MD [address] [place] [address] 05/29/2025 2:40 PM EDT Office [facility] [address] [place] [address] Cayla Erazo APRN, DNP [address] [facility] [place] [address] 06/07/2025 1:00 PM EDT Office Visit [facility] [address] [place] [address] Tom Iraheta MD [address] [place] [address] documented as of this encounter [...] as of this encounter Care Teams Rn Residential Relationship Specialty Start Date End Date Vignesh Pickens MD [address] [place] [address] PCP - General 12/31/24 Cayla Erazo APRN, DNP [address] [facility] [place] [address] Nurse Practitioner Urology 12/20/24 documented as of this encounter
--- OUTSIDE RECORDS SUMMARY | 2025-03-07 10:00 | XMS_ITS | Encounter Summary ---
Author Organization [facility] Address [address] [place] [address] Care Team Providers Care Court Officer Name Role Phone Cayla Erazo APRN, DNP Unavailable [phone] Vignesh Pickens MD Primary Care Provider [phone] Reason for Visit * Other Medical (Routine) - Closed Specialty Diagnoses / Procedures Referred By Contelvie t Referred To Contact Urology Diagnoses Gross hematuria Procedures Cysto- Urology Cayla Erazo APRN, DNP [address] [address] Phone: tel: fax: Referral ID Status Reason Start Date Expiration Date Visits Re quested Visits Authorized [id number] Closed 12/25/2024 06/26/2026 1 1 Encounter Details Date Type Department Care Team (Late st Contact Info) Description 03/07/2025 10:00 AM EDT Office Visit [facility] [address] [place] [address] Doug Chapman MD [id number] [place] [address] Gross hematuria Social History Tobacco Use Types [...] Date Recorded Patient Health Questionnaire-2 Score 0 03/07/2025 Hunger Vital Sign Answer Date Recorded Within [...] drink first t rodríguez in the morning ([employer]) to steady your nerves or to get rid of a hangover? 0 08/15/2024 CAGE Questionnaire Score 0 024 Utilities Answer Date Recorded In the past 12 months has th e [employer], gas, oil, or water [employer] threatened to shut off services in your [...] Sign Reading Time Taken Comments Blood Pressure 108/63 03/07/2025 10:09 AM EDT Pulse 79 03/07/2025 10:09 AM EDT Temperature - - Respiratory Rate - - Oxygen Saturation - - Inhaled Oxygen Concentration - - Weight 88.5 kg (195 lb) 03/07/2025 10:09 AM EDT Height 162.6 cm (5' 4 ) 03/07/2025 10:09 AM EDT Body Mass Index 33.47 03/07/2025 10:09 AM EDT documented in this encounter Functional Status * Over the past 2 weeks, how often have you been bothered by any of the following problems? Question Answer Date of Assessment Author Little interest or pleasure in doing things Not at all 03/07/2025 10:14 AM EDT Shruthi Mauricio LPN Feeling down, depressed, or hopeless Not at all 03/07/2025 10:14 AM TOSHAT Shruthi Mauricio LPN Patient Health Questionnaire-2 Score 0 03/07/2025 10:14 AM TOSHAT Shruthi Mauricio LPN * If you checked off any problems on this questionnaire so far, Question Answer Date of Assessment Author How difficult have these problems made it for you to do your work, take care of things at home, or get along with other people? Not difficult at all 03/07/2025 10:14 AM EDT Shruthi Mauricio LPN documented as of this encounter Miscellaneous Notes * Progress Notes - Garrett Maxwell MD - 03/07/2025 10:00 AM EDT [facility] Note CC: hematuria HPI: Eileen Tovar is a 64 y.o. F who was initially evaluated in Sep 2024 for diagnosis ofbilateral hydronephrosis in Jul 2024 thought to be due to severe constipation. She was treated for UTI while inpatient at [facility] and had improvement in renal function and hydronephrosis with indwellingFoley catheter that was removed prior to discharge to [facility] in [place]. She is a limited historian, presented in a wheelchair, and is accompanied by a staff member from [facility] without further information provided. She presents today for hematuria and hydronephrosis. She has previously seen Cayla Erazo and went to OR January [address] Mitchell for cystoscopy, bilateral RPG that revealed bilateral hydro and poorly draining kidneys bilaterally but no filling defects. Small capacity bladder noted but no masses/lesions. She was then hospitalized earlier this month in the ICU for rhinovirus. She had a catheter briefly during this hospitalization but has now been voiding into a brief. She has previously tried trospium when she presented back in Sep 2024 and had slight improvement inCr/gfr. Renal US showed continued bilateral hydro. UDS in 12/2024 showed small capacity bladder withnormal pressures thought to be due to VUR. Had hematuria and questionable filling defects on CT so referred to Dr. Mitchell for cysto, RPG that she had in January. Has been treating Lulu since Sep 2024 vaginal estrogen cream and d-mannose, not a Hiprex candidate due to decreased GFR. PMHx: Problem List[1] Past 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[2] PSHx: Surgical History[3] FHx: Family History[4] SHx: Social History[5] ROS: See HPI Physical Exam: Vitals: 03/07/25 1009 BP: 108/63 Pulse: 79 [employer] Cutter present during entire exam General: Pleasant, alert, in no acute distress, well appearing Pulmonary: no increased work of breathing or signs of respiratory distress. Abdomen: soft, flat, Musculoskeletal: Left AKA, travels by wheelchair, 2 person assist Skin: Warm, dry, and intact Neurologic: grossly normal Psychiatric: oriented to person, place, and time. Mood and affect appeared normal. Results/Data: Labs: Lab Results Component Value Date HGBA1C 9.2 (H) 02/22/2025 Lab Results Component Value Date GLUCOSE 205 (H) 03/01/2025 CALCIUM 8.8 (L) 03/01/2025 NA 125 (L) 03/01/2025 K 4.5 03/01/2025 CO2 23 03/01/2025 CL 91 (L) 03/01/2025 BUN 40 (H) 03/01/2025 CREATININE 1.84 (H) 03/01/2025 EGFR 30.1 03/01/2025 Cultures: Lab Results Component Value Date URINECX (A) 03/01/2025 10,000 - 100,000 CFU/mL Enterobacter cloacae complex Imaging: CT OSH 02/2025: bilateral hydro appears stable down to bladder Assessment: Eileen Tovar is a 64 y.o. female with neurogenic bladder, bilateral hydro CKD (baseline Cr about 1.8), history of hematuria who presents to clinic to discuss hematuria and hydronephrosis. She recently underwent cystoscopy with bilateral retrograde pyelograms on 01/31/25. This did not show any obvious signs of obstruction between the upper tract and the bladder. She is likely to have chronic hydronephrosis given her urologic history which makes it challenging to know when there is a true obstructive process. We discussed that we could perform a NM renal scan with a garcía in place to try to decrease the confounding factors. She has small bowel anterior to her bladder and therefore, placement of a suprapubic catheter is not possible without an open approach. We briefly discussed more involved reconstruction options for neurogenic bladder but ultimately shewould be high risk for these surgeries given her co-morbidities. She is voiding without a catheter at this time and does not want any additional procedures unless they are absolutely necessary. This is reasonable given she is at her Cr baseline currently and we recommend she continue her mirabegron. Plan: 1. Would recommend continue follow up with Cayla Erazo in March 2025 2. Continue mirabegron Garrett Maxwell MD [1] Patient Active Problem List Diagnosis Proteinuria Hypotension GERD without esophagitis Essential (primary) hypertension CAD (coronary artery disease), cherokee coronary artery Controlled diabetes mellitus type II without complication Iron deficiency anemia Second hand smoke exposure Acute kidney injury superimposed on CKD ([facility]/HCC) Arthritis Cellulitis of left knee Chronic respiratory failure COPD (chronic obstructive pulmonary disease) ([facility]) Dehydration with hyponatremia Diabetes mellitus ([facility]) Hyperlipidemia Restrictive lung disease Stroke ([facility]) Dave coma scale total score 13-15, unspecified coma timing Pyelonephritis Kidney infection Acquired absence of leg above knee Stage 3 chronic kidney disease ([facility]) Type 2 diabetes mellitus with diabetic chronic kidney disease ([facility]) Peripheral vascular disease, unspecified ([facility]) Prosthetic joint infection ([facility]) Unspecified hydronephrosis Vitamin D deficiency, unspecified Disorder of kidney and ureter, unspecified Unspecified right bundle-branch block Unspecified abdominal pain Tubulo-interstitial nephritis, not specified as acute or chronic Tinea unguium Secondary hyperparathyroidism of renal origin ([facility]) Pain in right toe(s) Pain in left toe(s) Edema, unspecified Presence of left artificial knee joint Other specified disorders of the skin and subcutaneous tissue Other nonspecific abnormal finding of lung field Weakness Other disorders of phosphorus metabolism Other acute postprocedural pain Old myocardial infarction Nontoxic single thyroid nodule Morbid (severe) obesity due to excess calories ([facility]) Mixed simple and mucopurulent chronic bronchitis ([facility]) Methicillin resistant Staphylococcus aureus infection Hypertensive heart and chronic kidney disease with heart failure and stage 1 through stage 4 chronic kidney disease, or unspecified chronic kidney disease ([facility]) Hyperkalemia Hydronephrosis with renal and ureteral calculous obstruction Hemiplegia and hemiparesis following cerebral infarction affecting left non- dominant side ([facility]) Fecal impaction ([facility]) Dysuria Dyspnea, unspecified Deep venous thrombosis of lower extremity Constipation, unspecified Chronic diastolic (congestive) heart failure ([facility]/HCC) Calculus of kidney Atrial premature depolarization Adult [...] occlusion or stenosis of left carotid arteries ([facility]) Anemia in chronic kidney disease Chronic kidney disease, stage 3a (CMS/HCC) Type 2 diabetes mellitus without complication History of stroke Hx of AKA (above knee amputation), left (CMS/HCC) PVD (peripheral vascular disease) (CMS/HCC) Asymptomatic bilateral carotid artery stenosis Sepsis (CMS/HCC) [2] Past 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: Diagnosis Date Anxiety [...] BREAST SURGERY N/A Breast Surgery Reconstruction from [facility] BREAST SURGERY N/A Breast Surgery from [facility] CHOLECYSTECTOMY N/A Cholecystotomy from [facility] KIDNEY SURGERY N/A Kidney Surgery from [facility] KNEE SURGERY N/A Knee Surgery from [facility] MASTECTOMY N/A Breast Surgery Mastectomy from [facility] SHOULDER SURGERY Right Shoulder Surgery Right from [facility] [4] Family History Problem Relation Name Age of Onset Cancer Mother Stroke Mother Cancer Father Menorrhagia Father Breast cancer Mother's Sister Cancer Mother's Sister Malig Hyperthermia Neg Hx Anesthesia problems Neg Hx [5] Social History Tobacco Use Smoking status: Former Current packs/day: 0.00 Types: Cigarettes Quit date: 07/22/2022 Years since quittin.6 Passive exposure: Past Smokeless tobacco: Never Vaping Use Vaping status: Never Used Substance Use Topics Alcohol use: Not Currently Drug use: Never Cosigned by Doug Chapman MD at 03/11/2025 4:27 PM EDT Associated attestation - Doug Chapman MD - 03/11/2025 4:27 PM EDT I saw and evaluated the patient with the resident/fellow. I discussed the case with the resident/fellow and agree with the findings and plan as documented. documented in this encounter Plan of Treatment Upcoming Encounters Date Type Department Care Team (Late st Contact Info) Description 05/16/2025 8:00 AM EDT Office Visit [facility] [place] [facility] [address], [address] [place] [address] Karly Gracia MD [address] [place] [address] 05/29/2025 2:40 PM EDT Office Visit [facility] [address] [place] [address] Cayla Erazo APRN, [place] [address] [address] 06/07/2025 1:00 PM EDT Office Visit [facility] [address] [place] [address] Tom Iraheta MD [address] [place] [address] documented as of this encounter Visit Diagnoses Diagnosis Gross hematuria 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 Rhinovirus 02/23/2025 02/23/2025 Assessment Noted Time PHQ-9 Depression Total Score: 13 025 10:12 AM EST A fall risk assessment has been complete d for the patient 12/31/2024 3:03 PM EDT A Body Mass Index follow-up plan has been documented for the patient 03/11/2025 4:27 PM EDT documented as of this encounter Care Teams Court Officer Relationship Specialty Start Date End Date Vignesh Pickens MD [address] [place] [address] PCP - General 12/31/24 Cayla Erazo APRN, DNP [address] [address] Nurse Practitioner Urology 12/20/24 documented as of this encounter
--- OUTSIDE RECORDS SUMMARY | 2025-04-08 09:20 | XMS_ITS | Encounter Summary ---
Author Organization [facility] Address [address] [place] [address] Care Team Providers Care Knowledge Analyst Name Role Phone Cayla Erazo APRN, DNP Unavailable [phone] Vignesh Pickens MD Primary Care Provider [phone] Reason for Visit * Reason Comments UTI Encounter Details Date Type Department Care Team (Latest Contact Info) Description 04/08/2025 9:20 AM EDT [facility] Visit [facility] [address] [place] [address] Cayla Erazo APRN, FREDERICK [address] [place] [address] Neurogenic bladder (Primary Dx); Hydronephrosis, [...] drink first t rodríguez in the morning (EYE-COACH) to steady your nerves or to get [...] Notes * Progress Notes - Cayla Erazo, BRICKLAYER SUPERVISOR, DNP - 04/08/2025 9:20 AM EDT [facility] Note HPI: Eileen Tovar is a 64 y.o. F who was initially evaluated in Sep 2024 for diagnosis ofbilateral hydronephrosis in Jul 2024 thought to be 2/2 severe constipation. She was treated for UTIwhile inpatient at [facility] and had improvement in renal function and hydronephrosis with indwelling García catheter that was removed prior to discharge to [facility] in [place]. She is a limited historian, presented in a wheelchair, and is accompanied by a staff member from [facility] without further information provided. She was most [...] useof LUE. She also has PVD, COPD, PA, and DVT treated with 2 blood thinners. She denies ever being impacted with stool before and reportedly sees an outside urologist/senior premium auditor who presents to the SNF, but could [...] outside records, which are summarized below: 03/27/25: [facility] ER Note: Presented to ER via EMS [...] protein, 3+ blood, 3+ LE. Microscopy resulted [id number] RBC, TNTC WBC. CTA chest without PE, [...] 04/08/25 0939 BP: 117/74 Pulse: (!) 42 Inspector Rubber Stamp Die present during entire exam General: Pleasant, alert, [...] CFU/mL Enterobacter cloacae complex Imagin10/05/23: [facility] at [facility] resulted moderate cortical thinning of kidneys and [...] deflated and the catheter removed easily. Assessment: Eileen Tovar is a 64 y.o. female for [...] months or earlier as necessary 5. [facility] today Cayla Erazo, BRICKLAYER SUPERVISOR, DNP [1] Patient Active Problem List Diagnosis Proteinuria Hypotension GERD without esophagitis Essential (primary) hypertension CAD (coronary artery disease), [place] coronary artery Controlled diabetes mellitus type II without complication Iron deficiency anemia Second hand smoke exposure Acute kidney injury superimposed on CKD ([facility]/HCC) Arthritis Cellulitis of left knee Chronic respiratory failure COPD (chronic obstructive pulmonary disease) ([facility]/HCC) Dehydration with hyponatremia Diabetes mellitus (CMS/HCC) Hyperlipidemia Restrictive lung disease Stroke ([facility]/HCC) Dave coma scale total score 13-15, unspecified coma timing Pyelonephritis Kidney infection Acquired absence of leg above knee Stage 3 chronic kidney disease ([facility]/HCC) Type 2 diabetes mellitus with diabetic chronic kidney disease ([facility]/HCC) Peripheral vascular disease, unspecified ([facility]/HCC) Prosthetic joint infection ([facility]/HCC) Unspecified hydronephrosis Vitamin D deficiency, unspecified Disorder [...] Hx of AKA (above knee amputation), left ([facility]/HCC) PVD (peripheral vascular disease) ([facility]/HCC) Asymptomatic bilateral carotid artery stenosis Sepsis ([facility]) [2] Past 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: Diagnosis Date Anxiety Breast cancer Cerebral infarction, unspecified (CMS/HCC) CVA (cerebral infarction) COPD (chronic obstructive pulmonary disease) ([facility]/HCC) Depression Fibromyalgia History of falling History of [...] BREAST SURGERY N/A Breast Surgery Reconstruction from [facility] BREAST SURGERY N/A Breast Surgery from [facility] CHOLECYSTECTOMY N/A Cholecystotomy from [facility] KIDNEY SURGERY N/A Kidney Surgery from [facility] KNEE SURGERY N/A Knee Surgery from [facility] MASTECTOMY N/A Breast Surgery Mastectomy from [facility] SHOULDER SURGERY Right Shoulder Surgery Right from [facility] [4] Family History Problem Relation Name Age [...] Description 05/16/2025 8:00 AM EDT Office Visit [facility] [facility] [address] [facility] [address], [address] [place] [address] Karly Gracia MD [address] [place] [address] 05/29/2025 2:40 PM EDT [facility] [address] [place] [address] Cayla Erazo APRN, DNP [address] [place] [address] 06/07/2025 1:00 PM EDT Office Visit [facility] [address] [place] [address] Tom Iraheta MD [address] [place] [address] documented as of this [...] documented as of this encounter Care Teams Knowledge Analyst Relationship Specialty Start Date End Date Vignesh Pickens MD [address] [place] [address] PCP - General 12/31/24 Cayla Erazo APRN, FREDERICK [address] [facility] [address] [place] [address] Nurse Practitioner Urology 12/20/24 documented as of this encounter
--- OUTSIDE RECORDS SUMMARY | 2025-04-28 20:52 | XMS_ITS | Encounter Summary ---
Author Organization [facility] Address [address] [place] [address] Care Team Providers Care Mold Filler And Drainer Name Role Phone Cayla Erazo APRN, DNP Unavailable Vignesh Pickens MD Primary Care Provider [phone] Encounter Details Date Type Department Care Team (Latest Contact Info) Description 04/08/2025 Travel Social History Tobacco Use Types Packs/Day [...] drink first t rodríguez in the morning (EYE-KNOCKER OUT) to steady your nerves or to get [...] Description 05/16/2025 8:00 AM EDT Office Visit [facility] [place] [address] [facility], [address] [place] [address] Karly Gracia MD [address] [place] [address] 05/29/2025 2:40 PM EDT Office Visit [facility] [address] [place] [address] Cayla Erazo APRN, DNP [address] [address] 06/07/2025 1:00 PM EDT Office Visit [facility] [address] [place] [address] Tom Iraheta MD [address] [place] [address] documented as of this encounter [...] documented as of this encounter Care Teams Mold Filler And Drainer Relationship Specialty Start Date End Date Vignesh Pickens MD [address] [place] [address] PCP - General 12/31/24 Cayla Erazo APRN, DNP [address] [address] Nurse Practitioner Urology 12/20/24 documented as of this encounter
--- OUTSIDE RECORDS SUMMARY | 2025-04-28 20:52 | XMS_ITS | Clinical Summary ---
Author Organization [facility] Address [address] [place] [address] Phone Care Team Providers Care Performing Arts Technicians Name Role Phone Foreign Spangler MD, Andrei [place] Primary Care Provid er Allergies No known [...] PCV) 2009 Zoster (1 of 2) 2009 Bone Density Screening 2024 COVID-19 Vaccine (1 - 2023-2 5 season) 2025 Influenza Vaccine (#1) 2025 Hepatitis B Vaccine Aged Out No longe r eligible based on patient's age to complete this topic Meningococcal B Vaccine Aged Out No l onger eligible based on patient's age to complete this topic [place] [id number] Care Teams Performing Arts Technicians Relationship Specialty Start Date End Date Andrei Carrasquillo Sr., MD [address] [place] [address] PCP - General Track Car Operator 03/17/16
--- OUTSIDE RECORDS SUMMARY | 2025-04-28 20:52 | XMS_ITS | Clinical Summary ---
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 Role Phone Arie Dougherty MD [phone] [ ] Conditions or Problems Problem Name Problem Code Onset Date Status Entry Date Provider Comment Standard Description Annotate Morbid obesity due to excess calories E66.01 (ICD-10-CM ) 10/25 Active 10/25 Helen Salazar Morbid (severe) obesity due to excess calories DM II with diabetic PVD E11.51 (ICD-10-CM ) 01/14 Active 01/14 Helen Salazar Type 2 diabetes mellitus with diabetic peripheral angiopathy without gangrene care home (current) use of suppressive antibiotics/D oxycycline Z79.2 (ICD-10-CM ) 01/14 Active 01/14 Helen Salazar care home (current) use of antibiotics Benign Essential Hypertension 76705796 (SNOMED CT) 01/14 Resolved 01/14 Helen Salazar Benign hypertension 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2 (ICD-10-CM ) 01/14 Inactive 01/14 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 Anemia in chronic diseases(docu ment disease) D63.8 (ICD-10-CM ) 01/14 Active 01/14 Helen Salazar Anemia in other chronic diseases classified elsewhere Chronic respiratory failure with hypoxia 98758503 (SNOMED CT) 01/14 Active 01/14 Helen Salazar Acute respiratory failure COPD 69564868 (SNOMED CT) 01/14 Active 01/14 Helen Salazar Chronic obstructive pulmonary disease DM Type II E11.9 (ICD-10-CM ) 01/14 Inactive 01/14 Helen Salazar Type 2 diabetes mellitus without complications Benign Essential Hypertension 71734077 (SNOMED CT) 01/14 Removed 01/14 Helen Salazar Benign hypertension Acquired absence of left knee joint 382643932 (SNOMED CT) 03/02 Resolved 03/02 Helen Salazar History of operative procedure on knee Obesity due to excess calories E66.09 (ICD-10-CM ) 03/02 Resolved 03/02 Helen Salazar Other obesity due to excess calories care home (current) use of anticoagulant s Z79.01 (ICD-10-CM ) 03/02 Resolved 03/02 Helen Salazar care home (current) use of anticoagulants Staph epi infection B95.7 (ICD-10-CM ) 03/02 Resolved 03/02 Helen Salazar Other staphylococcus as the cause of diseases classified elsewhere Diarrhea 10233139 (SNOMED CT) 09/28 Resolved 09/28 Helen Salazar Diarrhea Staph hominis infection B95.7 (ICD-10-CM ) 09/28 Resolved 09/28 Helen Salazar Other staphylococcus as the cause of diseases classified elsewhere Staph hominis infection B95.7 (ICD-10-CM ) 09/28 Removed 09/28 Arie Dougherty MD Other staphylococcus as the cause of diseases classified elsewhere Diarrhea 01242599 (SNOMED CT) 09/28 Removed 09/28 Arie Dougherty MD Diarrhea Acquired absence of left knee joint 594794294 (SNOMED CT) 03/02 Removed 03/02 Helen Salazar History of operative procedure on knee Cellulitis of left leg 717504793 (SNOMED CT) 03/02 Removed 03/02 Helen Salazar Cellulitis of lower limb Knee, left, subsequent encounter, infection/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 T84.54xD (ICD-10-CM ) 03/02 Active 03/02 Helen Salazar Infection and inflammatory reaction due to internal left knee prosthesis, subsequent encounter Staph epi infection B95.7 (ICD-10-CM ) 03/02 Removed 03/02 Helen Salazar Other staphylococcus as the cause of diseases classified elsewhere care home (current) use of anticoagulant s Z79.01 (ICD-10-CM ) 03/02 Removed 03/02 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 Obesity due to excess calories E66.09 (ICD-10-CM ) 03/02 Removed 03/02 Helen Salazar Other obesity due to excess calories Hx of malignant neoplasm of breast 958352028 (SNOMED CT) 03/02 Removed 03/02 Helen Salazar History of malignant neoplasm of breast Medications Medication Instructions Start Date Stop Date Generic Name NDC Provider DOXYCYCLINE MONOHYDRATE 100 MG CAPS Take 1 capsule by mouth twice a day 10/25 doxycycline monohydrate 22014665427 Arie Dougherty MD ceftriaxone recon soln 2GM IV Q24hrs [facility] 02/18 ceftriaxone recon soln Temi Norris Cubicin RF 800mg IV Q48hrs [facility] 02/18 daptomycin Temi Norris DOXYCYCLINE MONOHYDRATE 100 MG CAPS Take 1 capsule by mouth twice a day 02/03 doxycycline monohydrate 35171825810 Arie Dominguez RF 800mg IV Q48hrs [facility] 02/18 daptomycin Nubia Ervin ceftriaxone recon soln 2GM IV Q24hrs [facility] 02/18 ceftriaxone recon soln Nubiadeidre Ervin IPRATROPIUM-ALBUT MIKE 0.5-2.5 (3) MG/3ML SOLN 3 ml by mouth PRN 01/27 ipratropium-albut mike 26702292558 Nubia Minor Gaviscon 95-358 mg/15 mL suspension by mouth four times a day 30 mL aluminum hydrox-magnesium carb 94716211291 Nubia Minor IPRATROPIUM-ALBUT MIKE 0.5-2.5 (3) MG/3ML SOLN using nebulizer every six hours PRN ipratropium-albut mike 11291879168 Nubia Minor BASAGLAR KWIKPEN 100 UNIT/ML SOPN subcutaneously once a day insulin glargine 13351156603 Nubia Minor MUCUS RELIEF D 60-600 MG [id number] by mouth twice a day pseudoephedrine-g uaifenesin 05088494297 Nubia Minor VITAMIN B-12 100 MCG TABS by mouth once a day cyanocobalamin (vitamin b-12) 41976760516 Nubia Minor PERCOCET 5-325 MG TABS 1-2 tablet every four to six hours oxycodone-acetami nophen 32630939852 Nubia Minor BIOTIN 1000 MCG TABS by mouth once a day biotin 68488734811 Nubia Minor GABAPENTIN 800 MG TABS by mouth four times a day as needed gabapentin 59673389205 Nubia Minor ATORVASTATIN CALCIUM 40 MG TABS by mouth every morning Hold while on daptomycin atorvastatin 02477482154 Nubia Minor FERROUS SULFATE 325 (65 Fe) MG TABS by mouth once a day ferrous sulfate 67131627164 Nubia Minor VENLAFAXINE HCL 75 MG TABS by mouth twice a day venlafaxine 86108615685 Nubia Minor CITRACAL MAXIMUM 315-6.25 MG-MCG TABS by mouth twice a day calcium citrate-vitamin d3 11708927393 Nubia Poncho JANUMET XR 50-1000 MG [id number]-QJA by mouth twice a day sitagliptin phos-metformin 91505351201 Nubia Minor GNP HYDROCORTISONE/AL OE 1 % CREA Apply to skin twice a day as needed hydrocortisone acetate 05822425998 Nubia Minor MS CONTIN 15 MG CR-TABS by mouth twice a day morphine 59960346580 Nubia Minor OMEPRAZOLE 20 MG TBEC 2 tablet by mouth once a day omeprazole 07056661622 Nubia Minor DOXYCYCLINE HYCLATE 100 MG TABS Take 1 tablet by mouth twice a day 01/11 doxycycline hyclate 22355562403 Nubia Minor CARVEDILOL 12.5 MG TABS by mouth twice a day carvedilol 78984828895 Nubia Minor PROMETHAZINE HCL 25 MG TABS by mouth three times a day as needed promethazine 47075977399 Nubia Minor TIZANIDINE HCL 4 MG TABS by mouth three times a day as needed tizanidine 20160926282 Nubia Minor LACTULOSE 10 GM/15ML SOLN 30 ml by mouth as needed lactulose 63115617058 Nubia Minor COLACE 100 MG CAPS by mouth twice a day as needed docusate sodium 69733748846 Nubia Minor XARELTO TABLET 15 mg 15 mg Take 1 by mouth once a day XARELTO TABLET 15 mg 15 mg Nubia Minor ANASTROZOLE 1 MG TABS by mouth once a day anastrozole 41119867081 Nubia Minor ACETAMINOPHEN 500 MG TABS by mouth every six hours PRN acetaminophen 07905746776 Nubia Minor LOPERAMIDE HCL 2 MG CAPS by mouth once a day PRN loperamide 81291556700 Nubia Minor ASCORBIC ACID 500 MG TABS by mouth 0.5 tab am and 0.5 tab pm ascorbic acid (vitamin c) 12468791945 Nubia Minor BACLOFEN 10 MG TABS by mouth three times a day baclofen 71402561932 Nubia Minor BREO ELLIPTA 100-25 MCG/ACT AEPB every morning fluticasone furoate-vilantero l 91263338941 Nubia Minor BUMETANIDE 2 MG TABS by mouth twice a day bumetanide 79258176969 Nubia Minor CALCIUM 600 1500 (600 Ca) MG TABS by mouth twice a day calcium carbonate 17754238470 Nubia Minor D3 HIGH POTENCY 10 MCG (400 UNIT) TABS by mouth 2.5 units am and 2.5 units pm cholecalciferol (vitamin d3) 06657662704 Nubia Minor PLAVIX 75 MG TABS by mouth every morning clopidogrel 91242750894 Nubia Minor VITAMIN B-12 1000 MCG TABS by mouth every morning cyanocobalamin (vitamin b-12) 46579226927 Nubia Minor FLONASE ALLERGY RELIEF 50 MCG/ACT SUSP intranasally every morning fluticasone propionate 32441474625 Nubia Minor FOSAMAX 70 MG TABS by mouth once a week alendronate 54585656309 Nubia Minor GLIPIZIDE ER 2.5 MG [id number] by mouth every morning 0.5 tab glipizide 06392221359 Nubia Minor LANTUS SOLOSTAR 100 UNIT/ML SOPN 8 unit subcutaneously every night insulin glargine 21696990266 Nubia Minor IPRATROPIUM-ALBUT MIKE 0.5-2.5 (3) MG/3ML SOLN 3 ml by mouth PRN 9/05 ipratropium-albut mike 78738268077 Nubia Minor JARDIANCE 10 MG TABS by mouth every morning empagliflozin 71628380359 Nubia Minor MAGNESIUM OXIDE 400 MG TABS by mouth twice a day magnesium oxide 36976211505 Nubia Minor METFORMIN HCL 1000 MG TABS by mouth twice a day metformin 75528300984 Nubia Minor MULTI-VITAMIN HP/MINERALS CAPS by mouth once a day multivitamin,tx-m inerals 78293371789 Nubia Minor ONDANSETRON HCL 4 MG TABS by mouth twice a day PRN ondansetron hcl 03379768170 Nubia Minor PANTOPRAZOLE SODIUM 20 MG TBEC by mouth once a day pantoprazole 40624643327 Nubia Minor PREGABALIN 50 MG CAPS by mouth three times a day pregabalin 78247459543 Nubia Isaac SENNA 8.6 MG TABS by mouth 2 tabs PRN sennosides 46071832900 Nubia Isaac SPIRONOLACTONE 50 MG TABS by mouth once a day spironolactone 36363563796 Nubia Isaac TRAZODONE HCL 150 MG TABS by mouth once a day 2 tabs trazodone 88758315937 Nubia Isaac VALSARTAN 80 MG TABS by mouth twice a day valsartan 96868653389 Nubia Isaac VENLAFAXINE HCL ER 150 MG [id number] by mouth every morning venlafaxine 74032651186 Nubia Isaac VANCOMYCIN HCL SOLR 1gm IV q 12 x 6wks [facility] [phone] 10/05 VANCOMYCIN HCL SOLR 17021131846 Libby Cabello JIMI MS CONTIN 15 MG CR-TABS by mouth twice daily 01/11 MORPHINE SULFATE 99666225178 Arie Dougherty MD PERCOCET 5-325 MG TABS 1-2 tabs, every four to six hours, do not exceed 4000mg of acetaminophen per day 01/11 OXYCODONE-ACETAMI NOPHEN 37265371111 Arie Dougherty MD [facility] IRON 325 (65 Fe) MG TABS by mouth daily 01/11 FERROUS SULFATE 92701953832 Arie Dougherty MD COLACE 100 MG CAPS by mouth twice daily as needed 02/19 DOCUSATE SODIUM 79509743152 Arie Dougherty MD DOXYCYCLINE HYCLATE 100 MG TABS take 1 tab po BID 02/19 DOXYCYCLINE HYCLATE 52853138826 Arie Dougherty MD XARELTO TABLET Take one by mouth once daily. 01/11 RIVAROXABAN TABS 11181950678 Arie Dougherty MD COUMADIN 5 MG ORAL TABLET by mouth, AC dinner 10/17 WARFARIN SODIUM 96152265435 Arie Dougherty MD VANCOMYCIN HCL SOLR 1gm IV q 12 x 6wks [facility] [phone] 08/22 VANCOMYCIN HCL SOLR 13344209819 [facility] VANCOMYCIN HCL SOLR 750 mg IV q 12 x 6wks [facility] [phone] 03/31 VANCOMYCIN HCL SOLR 24993092154 [facility] VANCOMYCIN HCL SOLR 750 mg IV q 12 x 6wks [facility] [phone] 08/22 VANCOMYCIN HCL SOLR 40271566421 Daily Lewis RN VENLAFAXINE HCL 75 MG TABS by mouth twice daily 01/11 VENLAFAXINE HCL 26045640190 Kulwant P PROMETHAZINE HCL 25 MG TABS by mouth three times a day as needed 01/11 PROMETHAZINE HCL 64424010224 Kulwant P B-12 100 MCG TABS by mouth daily 09/29 CYANOCOBALAMIN 50014654000 Kulwant P JANUMET XR 50-1000 MG [id number] by mouth twice daily 01/11 SITAGLIPTIN-METFO RMIN HCL 48012679414 Kulwant P TIZANIDINE HCL 4 MG TABS by mouth three times a day as needed 01/11 TIZANIDINE HCL 48013630155 Kulwant P GABAPENTIN 800 MG TABS by mouth four times a day as needed 01/11 GABAPENTIN 93285617529 Kulwant P CARVEDILOL 12.5 MG TABS by mouth twice daily 01/11 CARVEDILOL 83794871807 Kulwant P ANASTROZOLE 1 MG TABS by mouth daily 01/11 ANASTROZOLE 31409775342 Kulwant P CITRACAL MAXIMUM 315-6.25 MG-MCG TABS by mouth twice daily 01/11 CALCIUM CITRATE-VITAMIN D 05687882823 Kulwant P [facility] OMEPRAZOLE 20 MG TBEC 2 tabs by mouth once daily 01/11 OMEPRAZOLE 07964625568 Kulwant P BIOTIN 1000 MCG TABS by mouth daily 01/11 BIOTIN 51465968480 Kulwant P ATORVASTATIN CALCIUM 40 MG TABS by mouth at bedtime 01/11 ATORVASTATIN CALCIUM 92896972609 Kulwant P COUMADIN 5 MG ORAL TABLET by mouth, AC dinner 05/19 WARFARIN SODIUM 11183783689 Kulwant P LACTULOSE SOLN 30mL by mouth as needed 02/19 LACTULOSE SOLN 24174290386 Kulwant P HYDROCORTISONE ACETATE 1 % CREA apply topically twice a day as needed 10/25 HYDROCORTISONE ACETATE 43673822789 Kulwant P MS CONTIN 15 MG CR-TABS by mouth twice daily 11/20 MORPHINE SULFATE 83796320855 Kulwant P [facility] IRON 325 (65 Fe) MG TABS by mouth daily 11/20 FERROUS SULFATE 86290851181 Kulwant P COLACE 100 MG CAPS by mouth twice daily as needed 02/19 DOCUSATE SODIUM 79838123586 Kulwant P PERCOCET 5-325 MG TABS 1-2 tabs, every four to six hours, do not exceed 4000mg of acetaminophen per day 11/20 OXYCODONE-ACETAMI NOPHEN 50319267795 Kulwant P VANCOMYCIN HCL SOLR 1gm IV q 12 x 6wks [facility] [phone] 08/22 VANCOMYCIN HCL SOLR 86205617882 [facility] Medications Administered No information available. 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 Dietary management education, guidance, and counseling [...] Oral Antibiotic CPT-ca Continue IV antibiotics 2022 CPT-73108 CMP [id number] CBC with Differential 2022 CPT-17183 C- reactive protein [id number], [id number] CPK CPT-J7030 IV Fluids CPT-sl STAT Labs CPT-sl STAT Labs CPT-sl STAT Labs CPT-88122 C- reactive protein CPT-82690 Sedimentation Rate (ESR) 201 02/20/04 CPT-42144 Vancomycin Trough CPT-29086 CMP [id number] CBC with Differential 2015 CPT-68012 C- reactive protein CPT-76360 Sedimentation Rate (ESR) 201 01/31/26 CPT-ca Continue IV antibiotics 2015 CPT-wpc Weekly PICC Line Care 09/28 CPT-90503 CMP [id number] CBC with Differential 2015 CPT-54619 Vancomycin Trough CPT-94469 C- reactive protein CPT-36357 Sedimentation Rate (ESR) 201 01/31/07 CPT-cdpcr C-Diff PCR CPT-isi New IV antibiotic CPT-13437 PICC Line Insertion CPT-60921 [facility] [id number] CBC with Differential 2015 CPT-48470 C- reactive protein CPT-67619 Sedimentation Rate (ESR) 201 01/30/30 CPT-DC Discontinue IV antibiotics 2 CPT-PICREM PICC Removal CPT-ca Continue IV antibiotics 2015 CPT-31282 CMP [id number] CBC with Differential 2015 CPT-46771 C- reactive protein CPT-64451 Sedimentation Rate (ESR) 201 01/27/01 CPT-36231 Vancomycin Trough CPT-ca Continue IV antibiotics 2015 CPT-13189 CMP [id number] CBC with Differential 2015 CPT-91900 C- reactive protein CPT-19291 Sedimentation Rate (ESR) 201 01/27/20 CPT-82287 Vancomycin Trough CPT-ca Continue IV antibiotics 2015 [...]
--- OUTSIDE RECORDS SUMMARY | 2025-04-28 20:52 | XMS_ITS | Clinical Summary ---
Author Organization [facility] Address [address] [place] [address] Care Team Providers Care Armature Repairer Name Role Phone Cayla Erazo APRN, DNP Unavailable [phone] Vignesh Pickens MD Primary Care Provider [phone] Allergies Active Allergy Reactions Criticality Noted Date [...] Active Additional Information Patient not taking.Reported on 04/08/2025 trospium (Sanctura) 20 MG tablet Take 1 tablet (20 mg) by mouth 2 (two) times a day. 60 tablet 5 09/26/19 26 Active Additional Information Patient not taking.Reported on 04/08/2025 D-Mannose 500 MG capsule Take 2,000 mg [...] times a day. 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 03/04/2025 Dental caries, unspecified 02/27/2025 Sepsis 02/22/2025 Hydroureter 01/03/2025 History of stroke 12/31/2024 Hx of AKA (above knee amputation), left 01/01/20 25 PVD (peripheral vascular disease) 12/31/2024 Asymptomatic bilateral carotid artery stenosis 0 12/31/2024 Occlusion and stenosis of unspecified carotid ar traci 12/31/2024 Other hypertrophic cardiomyopathy 12/04/2024 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, soft tissue, and skin 11/16/2024 Other specified cardiac arrhythmias 11/05/2024 Cerebral infarction due to u nspecified occlusion or stenosis of left carotid arteries 11/05/2024 Postmenopausal bleeding 10/19/2024 Hypertensive chronic kidney disease with stage 1 [...] without esophagitis 03/28/2017 CAD (coronary artery disease), red devil coronary a rtery 03/28/2017 Controlled diabetes mellitus [...] Encounters Date Type Department Care Team Description 04/08/2025 9:20 AM EDT Office Visit [facility] [address] [facility], [address] [place] [phone] Cayla Erazo APRN, FREDERICK Neurogenic bladder (Primary Dx); Hydronephrosis, unspecified hydronephrosis type; Urinary retention; Recurrent UTI; Post-menopausal atrophic vaginitis 04/08/2025 Travel 04/04/2025 Telephone [facility] [address] [place] [phone] Doug Chapman MD 03/27/2025 Orders Only External Location [address] [place] [phone] Henrik Betts PA 03/27/2025 Orders Only External Location [address] [place] [phone] Henrik Betts PA 03/27/2025 Orders Only External Location [address] [place] [address] Henrik Betts PA 03/27/2025 Orders Only External Location [address] [place] [address] Henrik Betts PA 03/27/2025 Telephone [facility] [address] [place] [phone] Doug Chapman MD 03/13/2025 Orders Only External Location [address] [place] [phone] Kentrell Padilla APRN 03/13/2025 Orders Only External Location [address] [place] [phone] Kentrell PadillaLIZANDRO 03/07/2025 10:00 AM EDT Office Visit [facility] [address] [place] [address] Doug Chapman MD Gross hematuria 03/07/2025 Travel 03/04/2025 Orders Only External Location [address] [place] [phone] Provider, External 03/04/2025 Orders Only External Location [address] [place] [phone] Provider, External 03/04/2025 Results Follow-Up [facility] Virtual Dept. [address] [place] [phone] Madonna Singleton MD 03/01/2025 Telephone [facility] [address] [place] [phone] Surgeon Slater MD 02/28/2025 8:15 AM EDT Office Visit [facility] [address] [place] [phone] Bert Lim, DMD Caries (Primary Dx) 02/28/2025 Travel 02/27/2025 Travel 02/24/2025 Travel 02/22/2025 6:13 PM EDT - 03/02/2025 11:04 AM EDT Hospital Encounter [facility] [address] Daniel Gordillo MD Salahuddin, Nawal, MD Powers, [...] Travel 02/22/2025 Orders Only External Location [address] [place] [phone] Jordan Carl MD 02/22/2025 Orders Only External Location [address] [place] [address] Jordan Carl MD 02/22/2025 Orders Only External Location [address] [place] [phone] Jordan Carl MD 02/22/2025 Orders Only External Location [address] [place] [phone] Jordan Carl MD 01/31/2025 9:48 AM EDT Anesthesia Event [facility] [address] [place] [phone] Nj Sears MD 01/31/2025 8:55 AM EDT - 01/31/2025 10:10 AM EDT Surgery [facility] [address] [place] [phone] Ceci Mitchell MD URETEROSCOPY,CYSTOSCO PY, RETROGRADE PYELOGRAM, BILATERAL STENT PLACEMENT [47148 (CPT )] 01/31/2025 8:03 AM EDT - 01/31/2025 1:39 PM EDT Hospital Encounter [facility] [address] [place] [phone] Ceci Mitchell MD Urinary retention (Primary Dx); Gross hematuria Discharge Disposition: Home or Self Care 01/31/2025 Travel from Last 3 Months Immunizations Immunization Administration Dates Next Due Influenza, injectable, quadrivalent, preservativ e free 05/11/2016 SendRR-CorepairNTSwypeShield COVID-19 Vaccine (Purple Cap) 12 + 09/30/2020,09/09/2020 [...] any time in the past 12 [facility], were you homeless or living in [...] drink first t rodríguez in the morning (EYE-ENTERTAINMENT DIRECTOR) to steady your nerves or to [...] Pulse 42 04/08/2025 9:39 AM EDT Temperature 36.7 C (98 F) 03/02/2025 8:14 AM EDT Respiratory Rate 18 03/02/2025 8:14 AM EDT Oxygen Saturation 92% 03/02/2025 8:14 AM EDT Inhaled Oxygen Concentration - - Weight 88.5 kg (195 lb) 04/08/2025 9:39 AM EDT Height 162.6 cm (5' 4 ) 04/08/2025 9:39 AM EDT Body Mass Index 33.47 04/08/2025 9:39 AM EDT Plan of Treatment Upcoming Encounters Date Type Department Care Team (Late st Contact Info) Description 05/16/2025 8:00 AM EDT Office Visit [facility] [place] [facility] [address] [facility], [address] [place] [address] Karly Gracia MD [address] [place] [phone] 05/29/2025 2:40 PM EDT Office Visit [facility] [address], [address] [place] [address] Cayla Erazo, PENOLOGY PROFESSOR, DNP [address] [place] [address] 06/07/2025 1:00 PM EDT Office Visit [facility] [address] [place] [phone] Tom Iraheta MD [address] [place] [address] Health Maintenance Due Date Last [...] - Risk 60-74 years 1-dose series) 2019 CIE-DNSAP-54 Vaccine (3 - Pfizer risk series) 10/28/2020 09/30/2020, 09/09/2020 [facility]- SDOH Screenings 02/18/2025 [facility]-Adult SDOH Screenings 02/18/2025 08/20/2024 [facility]-Influenza Vaccine (#1) 2025 05/11/2016 [facility]-Diabetes: Hemoglobin A1C 05/24/2025 02/22/2025, 03/05/2014 [facility]-Depression Screening 03/07/2026 025, 09/26/2024, 09/13/2022, Additional history exists [facility]-Hepatitis C Screening Completed 08/15/2024 [facility]-Obesity Intervention Completed 025, 03/07/2025, 02/28/2025, Additional history exists HPV Vaccines Aged Out [...] this topic Medical Devices Implanted Type Area Weather Teacher Device Identifier Shelf Expiration Date Model / Serial / Lot Stent Ureteral [employer]ria [employer] Monofilament 7f/24cm - [id number] Implanted:Qty: 1 on 01/31/2025 by Ceci Mitchell MD at [facility] Right: Kidney Pearescope-[id number] 06/14/2027 [id number] / / [id number] Stent Ureteral [employer]ria [employer] Monofilament 7f/24cm - [id number] Implanted:Qty: 1 on 01/31/2025 by Ceci Mitchell MD at [facility] Left: Kidney Pearescope-[id number] 49 07/02/2027 [id number] / / [id number] Procedures Procedure Name Priority Date/Time Associated Diagnosis Comments CBC W/O DIFFERENTIAL Routine 04/08/2025 10:27 AM EDT Acute kidney injury superimposed on CKD (CMS/HCC) VITAMIN D 25 HYDROXY Routine 04/08/2025 10:27 AM EDT Acute kidney injury superimposed on CKD ([facility]/HCC) Chronic kidney disease-mineral and bone disorder (CKD-MBD) PTH INTACT TOTAL Routine 04/08/2025 10:2 7 AM EDT Acute kidney injury superimposed on CKD ([facility]/HCC) Chronic kidney disease-mineral and bone disorder (CKD-MBD) RENAL FUNCTION PANEL, PLASMA Routine 04/08/2025 10:27 AM EDT Acute kidney injury superimposed on CKD ([facility]) CYSTATIN C Routine 04/08/2025 10:27 AM EDT Acute kidney injury superimposed on CKD ([facility]) Stage 3 chronic kidney disease, unspecified whether stage 3a or 3b CKD ([facility]) FERRITIN, SERUM Routine 04/08/2025 10:27 AM EDT Acute kidney injury superimposed on CKD ([facility]) Anemia due to stage 3 chronic kidney disease, unspecified whether stage 3a or 3b CKD IRON & TOTAL IRON BINDING CAPACITY, PLASMA (INCLUDES TRANSFERRIN) Routine 04/08/2025 10:27 AM EDT Acute kidney injury superimposed on CKD ([facility]) Anemia due to stage 3 chronic kidney disease, unspecified whether stage 3a or 3b CKD XR OUTSIDE IMAGES 03/27/2025 12: 41 PM [...] 4:08 AM EDT PHOSPHORUS, PLASMA Routine 03/01/2025 4 :08 AM EDT POCT GLUCOSE METER UNSOLICITED RESULTS [...] EDT EXTUBATION Routine 02/24/2025 9:49 AM EDT ND CRITICAL CARE, E/M 30-74 MINUTES Routine 02/24/2025 7:08 AM EDT Acute respiratory failure with hypoxia and hypercapnia Acute kidney injury superimposed on CKD ([facility]) Chronic kidney disease, stage 3a ([facility]) Hyponatremia Acute encephalopathy Sepsis with encephalopathy without septic shock, due to unspecified organism ([facility]) Chronic diastolic (congestive) heart failure ([facility]) POCT GLUCOSE METER UNSOLICITED RESULTS Routine [...] AND TREAT Routine 02/23/2025 10:25 AM EDT ND CRITICAL CARE, E/M 30-74 MINUTES Routine 02/23/2025 9:10 AM EDT Acute respiratory failure with hypoxia and hypercapnia Acute kidney injury superimposed on CKD ([facility]) Chronic kidney disease, stage 3a ([facility]) Hyponatremia Acute encephalopathy Sepsis with encephalopathy without septic shock, due to unspecified organism ([facility]) VANCOMYCIN, RANDOM, PLASMA Routine 02/23/2025 8:34 [...] ANESTHESIA PLACEHOLDER Routine 01/31/2025 9:58 AM EDT ND AN ELECTIVE ENDOTRACHEAL AIRWAY Routine 01/31/2025 9:58 AM EDT ND CYSTO/URETERO/PYELOSC ,BX &/OR FULG LESN 01/31/2025 9:32 AM EDT Gross hematuria POCT GLUCOSE METER UNSOLICITED RESULTS Routine 01/31/2025 8:47 AM EDT HEPATITIS C ANTIBODY - ED W/REFLEX TO HCV QUANT PCR STAT 08/15/2024 5:35 AM EST CYTO DATA CONVERSION Routine 04/10/2013 12:00 AM EDT from Last 3 Months or Most Recently Relevant to Health Maintenance Results * (ABNORMAL) Cystatin C (04/08/2025 10:27 AM EDT) Only the most recent of4 resultswithin the time period is included. Cystatin C 2.71(H) 0.61 - 0.95 mg/L 04/08/2025 4:11 PM EDT [facility] Blood Venous blood specimen / Unknown Venipuncture / Unknown 04/08/2025 10:27 AM EDT 04/08/2025 10:28 AM EDT us Tom Iraheta MD LAB BLOOD ORDERABLES Final Resul t Performing Organization Address [facility]/ZIP Co de Phone Number [facility] [address] [place] [address] * (ABNORMAL) Iron & Total Iron Binding Capacity, Plasma (Includes Transferrin) (04/08/2025 10:27 AM EDT) Iron, Plasma 40 30 - 160 ug/dL 04/08/2025 12:33 PM EDT [facility] Transferrin, Plasma 191(L) 200 - 360 mg/dL 04/08/2025 12:33 PM EDT [facility] Total Iron Binding Capacity, Plasma 239(L) 240 - 450 ug/mL 04/08/2025 12:33 PM EDT [facility] Transferrin Saturation 17 14 - 50 % 04/08/2025 12:33 PM EDT [facility] Blood Venous blood specimen / Unknown Venipuncture / Unknown 04/08/2025 10:27 AM EDT 04/08/2025 10:28 AM EDT us Tom Iraheta MD LAB BLOOD ORDERABLES Final Resul t Performing Organization Address City/[facility] Co de Phone Number [facility] [address] [place] [address] * (ABNORMAL) Vitamin D 25 Hydroxy (04/08/2025 10:27 AM EDT) Vitamin D 25 Hydroxy 83.3(H) 20.0 - 80.0 ng/mL 04/08/2025 11:18 PM EDT [facility] Blood Venous blood specimen / Unknown Venipuncture / Unknown 04/08/2025 10:27 AM EDT 04/08/2025 10:28 AM EDT Narrative [facility] - 04/08/2025 11:18 PM EDT Testing performed on [employer], standardized against NIST SRM 2972. When testing samples from patients whose predominant form of vitamin D is vitamin D2, such as patients receiving vitamin D2 supplementation, results that are subtherapeutic should be confirmed with another method, such as LC-MS/MS, before being used for patient management. Vitamin D, 25-Hydroxy reference range, age 18 years and up: Deficiency: <12 ng/mL Insufficiency: 12 to 19 ng/mL Sufficiency: 20 to 80 ng/mL Possible toxicity: >100 ng/mL us Tom Iraheta MD LAB BLOOD ORDERABLES Final Resul t [facility] [address] [place] [address] * (ABNORMAL) CBC W/O Differential (04/08/2025 10:27 AM EDT) Only the most recent of3 resultswithin the time period is included. WBC Count 5.64 3.70 - 10.30 10*3/uL LAB HEMATOLOGY METHOD 04/08/2025 12:15 PM EDT [facility] RBC Count 3.61(L) 3.90 - 5.20 10*6/uL LAB HEMATOLOGY METHOD 04/08/2025 12:15 PM EDT [facility] HGB 9.8(L) 11.2 - 15.7 g/dL LAB HEMATOLOGY METHOD 04/08/2025 12:15 PM EDT [facility] HCT 30.7(L) 34.0 - 45.0 % LAB HEMATOLOGY METHOD 04/08/2025 12:15 PM EDT [facility] Platelet Count 312 155 - 369 10*3/uL LAB HEMATOLOGY METHOD 04/08/2025 12:15 PM EDT [facility] MCV 85 79 - 98 fL LAB HEMATOLOGY METHOD 04/08/2025 12:15 PM EDT [facility] MCH 27.1 26.0 - 32.0 pg LAB HEMATOLOGY METHOD 04/08/2025 12:15 PM EDT [facility] MCHC 31.9 30.7 - 35.5 g/dL LAB HEMATOLOGY METHOD 04/08/2025 12:15 PM EDT [facility] RDW 15.5(H) 11.5 - 14.5 % LAB HEMATOLOGY METHOD 04/08/2025 12:15 PM EDT [facility] MPV 10.8 8.8 - 12.5 fL LAB HEMATOLOGY METHOD 04/08/2025 12:15 PM EDT [facility] nRBC 0.0 <=0.0 per 100 WBCs LAB HEMATOLOGY METHOD 04/08/2025 12:15 PM EDT [facility] Blood Venous blood specimen / Unknown Venipuncture / Unknown 04/08/2025 10:27 AM EDT 04/08/2025 10:28 AM EDT us Tom Iraheta MD LAB BLOOD ORDERABLES Final Resul t Performing Organization Address City/[facility]/ZIP Co de Phone Number [facility] [address] [place] [address] * PTH Intact Total (04/08/2025 10:27 AM EDT) PTH Intact Total 28 9 - 77 pg/mL 04/08/2025 12:52 PM EDT [facility] Blood Venous blood specimen / Unknown Venipuncture / Unknown 04/08/2025 10:27 AM EDT 04/08/2025 10:28 AM EDT Narrative [facility] - 04/08/2025 12:52 PM EDT Assay performed by immunoassay at the [facility]. Performed on [employer] chemiluminescent immunoassay, tractable to the World Health Organization's first international standard for PTH from the NIBS, Code 79/500. Results obtained from different test methods or kits cannot be used interchangeably. us Tom Iraheta MD LAB BLOOD ORDERABLES Final Resul t [facility] [address] [place] [address] * (ABNORMAL) Ferritin (04/08/2025 10:27 AM EDT) Ferritin, Serum 294(H) 13 - 150 ng/mL 04/08/2025 12:42 PM EDT [facility] Blood Venous blood specimen / Unknown Venipuncture / Unknown 04/08/2025 10:27 AM EDT 04/08/2025 10:28 AM EDT us Tom Iraheta MD LAB BLOOD ORDERABLES Final Resul t [facility] [address] [place] [address] * (ABNORMAL) Renal Function Panel, Plasma (04/08/2025 10:27 AM EDT) Only the most recent of2 resultswithin the time period is included. Glucose, Plasma 214(H) 74 - 99 mg/dL 04/08/2025 12:33 PM EDT [facility] BUN, Plasma 24(H) 8 - 23 mg/dL 04/08/2025 12:33 PM EDT [facility] Creatinine, Plasma 1.87(H) 0.60 - 1.10 mg/dL 04/08/2025 12:33 PM EDT [facility] BUN/Creatinine Ratio 13 04/08/2025 12:33 PM EDT [facility] Sodium, Plasma 137 136 - 145 mmol/L 04/08/2025 12:33 PM EDT [facility] Potassium, Plasma 4.0 3.6 - 4.9 mmol/L 04/08/2025 12:33 PM EDT [facility] Chloride, Plasma 99 97 - 107 mmol/L 04/08/2025 12:33 PM EDT [facility] CO2, Plasma 25 22 - 29 mmol/L 04/08/2025 12:33 PM EDT [facility] Anion Gap 13 6 - 16 mmol/L 04/08/2025 12:33 PM EDT [facility] Total Calcium, Plasma 9.3 8.9 - 10.2 mg/dL 04/08/2025 12:33 PM EDT [facility] Phosphorus, Plasma 2.5 2.5 - 4.5 mg/dL 04/08/2025 12:33 PM EDT [facility] Albumin, Plasma 3.7 3.5 - 5.2 g/dL 04/08/2025 12:33 PM EDT [facility] eGFRcr 29.6 mL/min/1.7 3m*2 04/08/2025 12:33 PM EDT [facility] Comment:Reported eGFRcr in m L/min/1.73m2 is based the CKD-EPI 2020 equation that does not use a race coefficient. Blood Venous blood specimen / Unknown Venipuncture / Unknown 04/08/2025 10:27 AM EDT 04/08/2025 10:28 AM EDT us Tom Iraheta MD LAB BLOOD ORDERABLES Final Resul t [facility] [address] [place] [address] * XR OUTSIDE IMAGES (03/27/2025 12:41 PM [...] phy 03/27/2025 12:3 7 PM EDT [facility] IMG CT PROCEDURES Final Result * (ABNORMAL) POCT glucose meter (03/02/2025 8:13 AM EDT) Only the most recent of35 resultswithin the time period is included. Pathologist [facility] POCT Glucose 188(H) 74 - 99 mg/dL 03/02/2025 8:14 AM EDT [facility] Comment:Accuracy of a glucos e result [...] 03/02/2025 8:14 AM EDT [facility] Ticket Clerk ID Stefanie Frances 025 8:14 AM EDT HEALTHCARE LAB Device ID [id number] 03/02/2025 8:14 AM EDT [facility] Specimen Type POC Capillary 03/02/2025 8:14 AM EDT [facility] Blood Capillary blood specimen / Unknown 03/02/2025 8:13 AM EDT 03/02/2025 8:14 AM EDT us Madonna Singleton MD LAB POINT OF CARE TE ST DOCKED DEVICE UNSOLICITED RESULTS Final Result Performing Organization Address City/[facility]/ZIP Co de Phone Number [facility] [address] [place] [address] * SEND HECTOR MESSAGE (03/01/2025 4:15 PM EDT) Only the most recent of2 resultswithin the time period is included. Urine Urine specimen obtained by clean catch procedure / Unknown Non-blood Collection / Unknown 03/01/2025 4:15 PM EDT 03/01/2025 4:26 PM EDT us Madonna Singleton MD LAB URINE ORDERABLES Final Resul t Performing Organization Address City/[facility] de Phone Number [facility] [address] [place] [address] * Urine Salmon Panel (03/01/2025 4:15 PM EDT) Only the most recent of2 resultswithin the time period is included. Extra Sent for Culture 03/01/2025 6:01 PM EDT [facility] Urine Urine specimen obtained by clean catch procedure / Unknown Non-blood Collection / Unknown 03/01/2025 4:15 PM EDT 03/01/2025 4:26 PM EDT us Madonna Singleton MD LAB URINE ORDERABLES Final Resul t Performing Organization Address City/[facility] Co de Phone Number [facility] [address] [place] [address] * Urinalysis Microscopic Examination (03/01/2025 4:15 PM EDT) Only the most recent of2 resultswithin the time period is included. Urine Urine specimen obtained by clean catch procedure / Unknown Non-blood Collection / Unknown 03/01/2025 4:15 PM EDT 03/01/2025 4:26 PM EDT us Madonna Singleton MD LAB URINE ORDERABLES Final Resul t [facility] [address] [place] [address] * (ABNORMAL) Urinalysis with reflex microscopic (Culture NOT Included) (03/01/2025 4:15 PM EDT) Only the most recent of2 resultswithin the time period is included. Color, Urine Yellow LAB URINALYSIS - AUTOMATED METHOD 03/01/2025 4:34 PM EDT [facility] Clarity, Urine Cloudy LAB URINALYSIS - AUTOMATED METHOD 03/01/2025 4:34 PM EDT [facility] Spec [place], Urine 1.008 1.005 - 1.030 LAB URINALYSIS [...] Resul t [facility] [address] [place] [address] * (ABNORMAL) Urine Culture (03/01/2025 4:15 PM EDT) Only the most recent of3 resultswithin the time period is included. Culture 10,000 - 100,000 CFU/mL Enterobacter cloacae complex(A) CHRISTIANO 03/05/2025 12:12 PM EDT [facility] Comment: This isolate has been identified using the FDA Approved DoseMeer CA System Edited result: Previously reported as [...] Final Result [facility] [address] [place] [address] * (ABNORMAL) CBC and Differential (03/01/2025 4:08 [...] t [facility] [address] [place] [address] * Phosphorus, Plasma (03/01/2025 4:08 AM EDT) [...] Resul t [facility] [address] [place] [address] * Magnesium, Plasma (03/01/2025 4:08 AM EDT) Only the most recent of5 resultswithin the time period is included. Pathologist [facility] Magnesium, Plasma 2.0 1.9 - 2.4 mg/dL 03/01/2025 5:14 AM EDT [facility] Blood Venous blood specimen / Unknown Venipuncture / Unknown 03/01/2025 4:08 AM EDT 03/01/2025 4:43 AM EDT us Madonna Singleton MD LAB BLOOD ORDERABLES Final Resul t Performing Organization Address [facility] Co de Phone Number [facility] [address] [place] [address] * (ABNORMAL) Basic Metabolic Panel, Plasma (03/01/2025 4:08 AM EDT) Only the most recent of4 resultswithin the time period is included. Pathologist [facility] Glucose, Plasma 205(H) 74 [...] t [facility] [address] [place] [address] * XR Panorex (02/27/2025 12:13 PM EDT) [...] in the posterior aspect of tooth #31. [place] wear in tooth number 8, 9 and 23. No periapical lucency Procedure Note Lucas Cristobal MD - 02/27/2025 CLINICAL INDICATION: Odontogenic infection TECHNIQUE: XR PANOREX COMPARISON: None. FINDINGS: Rounded lucency in tooth #6. Aggressive destruction in the posterioraspect of tooth #31. [place] wear in tooth number 8, 9 and 23. No periapicallucency IMPRESSION: Dental caries in tooth #6 and 31 without abscess. CRITICAL RESULT: No. COMMUNICATION: Per this written report. Drafted by Lucas Cristobal MD on 02/27/2025 12:22 PM Final report signed by Lucas Cristobal MD on 02/27/2025 12:25 PM Ludy Hill MD IMG XR PROCEDURES Final Result * ECG Adult (02/25/2025 6:38 PM EDT) Only the most recent of4 resultswithin the time period is included. EKG DIAGNOSIS CLASS Abnormal MUSE ECG Ventricular Rate 68 BPM MUSE ECG Atrial Rate 68 BPM MUSE ECG ND Interval 198 ms MUSE ECG QRSD Interval 136 ms MUSE ECG QT Interval 450 ms MUSE ECG QTC Interval 478 ms MUSE ECG P [place] 71 degrees MUSE ECG R [place] 265 degrees MUSE ECG T Wave [place] 50 degrees MUSE ECG Diagnosis Sinus rhythm with marked sinus arrhythmia MUSE ECG Diagnosis Right bundle branch block MUSE ECG Diagnosis Abnormal ECG MUSE ECG Diagnosis MUSE ECG Diagnosis Confirmed by Karly Gracia ([id number]) on 02/26/2025 3:20:41 PM MUSE ECG 02/25/2025 6:38 PM EDT 02/26/2025 3:20 PM EDT Ludy Hill MD ECG ORDERABLES Final Result MUSE ECG * ND CRITICAL CARE, E/M 30-74 MINUTES (02/24/2025 7:08 [...] R esult [facility] [address] [place] [address] * (ABNORMAL) Procalcitonin (02/24/2025 1:01 AM EDT) Only the most recent of2 resultswithin the time period is included. Procalcitonin, Plasma 0.12(H) <0.09 ng/mL 02/24/2025 1:44 AM EDT [facility] Blood [...] predict 28 day mortality risk. Please consult [email or web address] for more information. Test performed at [facility], Core Laboratory. us Daniel Ralph MD LAB BLOOD ORDERABLES Final R esult [facility] [address] [place] [address] * (ABNORMAL) Blood gas panel, venous (02/24/2025 [...] R esult [facility] [address] [place] [address] * (ABNORMAL) Comprehensive metabolic panel (02/24/2025 1:01 [...] R esult [facility] [address] [place] [address] * Sodium, urine, random (02/23/2025 3:12 PM EDT) Sodium, Urine 31 mmol/L 02/23/2025 4:03 PM EDT [facility] Urine Urine specimen from urinary conduit / Unknown Non-blood Collection / Unknown 02/23/2025 3:12 PM EDT 02/23/2025 3:24 PM EDT us Daniel Ralph MD LAB URINE ORDERABLES Final R esult Performing Organization Address City/[facility]/ZIP Co de Phone Number [facility] [address] [place] [address] * Osmolality, urine (02/23/2025 3:12 PM EDT) Osmolality, Urine 408 50 - 1,200 mOsm/kg 02/23/2025 3:59 PM EDT [facility] Urine Urine specimen from urinary conduit / Unknown Non-blood Collection / Unknown 02/23/2025 3:12 PM EDT 02/23/2025 3:23 PM EDT us Daniel Ralph MD LAB URINE ORDERABLES Final R esult Performing Organization Address [facility] Co de Phone Number [facility] [address] [place] [address] * (ABNORMAL) Sodium (02/23/2025 3:04 PM EDT) Only the most recent of4 resultswithin the time period is included. Sodium, Plasma 129(L) 136 - 145 mmol/L 02/23/2025 3:44 PM EDT [facility] Blood Venous blood specimen / Unknown Venipuncture / Unknown 02/23/2025 3:04 PM EDT 02/23/2025 3:13 PM EDT us Daniel Ralph MD LAB BLOOD ORDERABLES Final R esult Performing Organization Address City/[facility]/ZIP Co de Phone Number [facility] [address] [place] [address] * Osmolality (02/23/2025 3:04 PM EDT) Pathologist [facility] Osmolality, Serum 289 280 - 301 mOsm/Kg 02/23/2025 4:11 PM EDT [facility] Blood Venous blood specimen / Unknown Venipuncture / Unknown 02/23/2025 3:04 PM EDT 02/23/2025 3:13 PM EDT Daniel Ralph MD LAB BLOOD ORDERABLES Final R esult Performing Organization Address [facility] [place] [address] * Streptococcus pneumoniae and Legionella Urinary Antigen (02/23/2025 11:05 AM EDT) [facility] Legionella pneumophila serogroup 1 Antigen Result (Urine) [...] Final Result Performing Organization Address [facility] [place] [address] * ND CRITICAL CARE, E/M 30-74 MINUTES (02/23/2025 9:10 [...] R esult [facility] [address] [place] [address] * (ABNORMAL) Nasopharyngeal Respiratory Panel (02/23/2025 2:05 [...] Respiratory PCR Panel is performed using the GalaDolex instrument. This test is FDA approved for use with Nasopharyngeal swabs only. This test is used for clinical purposes. It should not be regarded as investigational or for research. The [facility]biology Laboratory is certified under the Clinical Laboratory Improvement Amendments of 1988 (CLIA-88) as qualified to perform high complexity clinical laboratory testing. Daniel Ralph MD LAB MICROBIOLOGY - GENERAL O RDERABLES Final Result Performing Organization Address [facility] Co de Phone Number [facility] [address] [place] [address] * (ABNORMAL) Methicillin Resistant Staphylococcus aureus (MRSA) by PCR (02/23/2025 2:05 AM EDT) Methicillin Resistant Staphylococcus aureus (MRSA) by PCR Detected( A) Not Detected 02/23/2025 4:19 AM EDT [facility] Swab Both anterior nares [...] O RDERABLES Final Result Performing Organization Address City/[facility] Co de Phone Number [facility] [address] [place] [address] * (ABNORMAL) Troponin T, High Sensitivity, 2 Hour, Plasma (02/23/2025 2:04 AM EDT) Troponin T, High Sensitivity, 2 Hour 37(H) <14 ng/L 02/23/2025 2:52 AM EDT [facility] Troponin Delta Interpretation Not Calculated 02/23/2025 2:52 AM EDT [facility] Comment:Specimen not collect ed within acceptable timeframe. Delta will not be calculated. Blood Venous blood specimen / Unknown Venipuncture / Unknown 02/23/2025 2:04 AM EDT 02/23/2025 2:24 AM EDT Daniel Ralph MD LAB BLOOD ORDERABLES Final R [facility] Performing Organization Address [facility]/ZIP Co de Phone Number [facility] [address] [place] [address] * Anti Xa Level Low Molecular Weight [...] ORDERABLES Final R esult Performing Organization Address [facility]/ZIP Co de Phone Number [facility] [address] [place] [address] * (ABNORMAL) Troponin T, High Sensitivity, 0 Hour Plasma, Reflex to 2 Hour (02/23/2025 12:05 AM EDT) [facility] Troponin T, High Sensitivity, 0 Hour 40(H) <14 ng/L 02/23/2025 12:44 AM EDT [facility] Blood Venous blood specimen / Unknown Venipuncture / Unknown 02/23/2025 12:05 AM EDT 02/23/2025 12:17 AM EDT Daniel Ralph MD LAB BLOOD ORDERABLES Final R esult Performing Organization Address [facility] Co de Phone Number [facility] [address] [place] [address] * (ABNORMAL) Quantitative BAL/PAL/Bronch Wash Culture and Gram StainProtected Alveolar Lavage (02/23/2025 12:00 AM EDT) [facility] Culture [id number] CFU/mL Mixed upper respiratory jesus(A) 02/24/2025 12:09 [...] Final Result Performing Organization Address [facility] [place] [address] * (ABNORMAL) N-Terminal Probnp (02/22/2025 10:03 PM EDT) Only the most recent of2 resultswithin the time period is included. [facility] N-Terminal, PROBNP, Plasma 1,542(H) 0 - 899 pg/mL 02/22/2025 10:48 PM EDT [facility] Blood Venous blood specimen / Unknown Venipuncture / Unknown 02/22/2025 10:03 PM EDT 02/22/2025 10:11 PM EDT Bobby Parra MD LAB BLOOD ORDERABLES Final R esult Performing Organization Address [facility] [place] [address] * Maira auris Surveillance by PCR (02/22/2025 10:02 PM EDT) [facility] Maira auris PCR Result Not Detected Not Detected 02/24/2025 7:03 AM EDT [facility] Swab (Axilla and Groin) Non-blood Collection / Unknown 02/22/2025 10:02 PM EDT 02/22/2025 10:16 PM EDT Narrative [facility] - 02/24/2025 7:03 AM EDT This PCR assay was developed and its performance characteristics determined by [facility] as appropriate for clinical purposes. This assay has not been cleared or approved by the FDA, but is performed in a CLIA regulated laboratory that is qualified to perform high-complexity testing. Bobby Parra MD LAB MICROBIOLOGY - GENERAL O RDERABLES Final Result Performing Organization Address [facility] [place] [address] * (ABNORMAL) Multi Drug Resistance Test (02/22/2025 10:02 PM EDT) [facility] Culture Methicillin-Resist ant Staphylococcus aureus(AA) 02/24/2025 6:58 AM EDT [facility] Swab (Nares and Samantha Rectal) Non-blood Collection / Unknown 02/22/2025 10:02 PM EDT 02/22/2025 10:16 PM EDT Narrative [facility] - 02/24/2025 6:58 AM EDT This test was developed and its performance characteristics determined by the [facility]. Although the media is FDA-approved, it is not FDA-approved for all specimen types submitted. The FDA has determined that such clearance or approval is not necessary. This test is used for surveillance purposes. It should not be regarded as investigational or for research. The [facility] is certified under the Clinical Laboratory Improvement Amendments of 1988 (CLIA-88) as qualified to perform high complexity clinical laboratory testing. us Bobby Parra MD LAB MICROBIOLOGY - GENERAL O RDERABLES Final Result [facility] [address] [place] [address] * Drug abuse screen (02/22/2025 10:01 PM EDT) Amphetamine Screen Urine Negative Cutoff: 500 ng/mL 02/23/2025 12:22 AM EDT [facility] Benzodiazepines Screen Urine Negative [...] URINE ORDERABLES Final Result Performing Organization Address [facility] Co de Phone Number [facility] [address] [place] [address] * (ABNORMAL) Fentanyl Urine Confirm (02/22/2025 10:01 [...] developed and its performance characteristics determined by [facility]. It has not been cleared or approved by the FDA. The laboratory is regulated under CLIA as qualified to perform high-complexity testing. This test is used for clinical purposes. Testing is performed at the [facility], Special Chemistry Laboratory. Daniel Gordillo MD LAB URINE ORDERABLES Final Result Performing Organization Address [facility] Co de Phone Number [facility] [address] [place] [address] * (ABNORMAL) POCT arterial blood gas gem (02/22/2025 9:05 PM EDT) pH, Arterial 7.45(H) 7.31 - 7.42 02/22/2025 9:06 PM EDT [facility] pCO2, Arterial 37 35 - 48 mm Hg 02/22/2025 9:06 PM EDT [facility] pO2, Arterial 86 >80 mm Hg 02/22/2025 9:06 PM EDT [facility] SO2, Arterial 98 94 - 98 % 02/22/2025 9:06 PM EDT [facility] FIO2 60.0 % 02/22/2025 9:06 PM EDT [facility] Base Excess, Arterial 1.7 -2 - 3 mmol/L 02/22/2025 9:06 PM EDT [facility] HCO3, Arterial 25.7 22 - 26 mmol/L 02/22/2025 9:06 PM EDT [facility] Total Hemoglobin, Arterial, Whole Blood 9.1(L) 11.2 - 15.7 g/dL 02/22/2025 9:[facility] Hematocrit, Arterial 27.0(L) 34.0 - 45.0 % 02/22/2025 9:06 [facility] Sodium, Arterial 125(L) 136 - 145 mmol/L 02/22/2025 9:06 PM [facility] Potassium, Arterial 4.9 3.6 - 4.9 mmol/L 02/22/2025 9:06 PM EDT [facility] Comment:Hemolyzed, result ma y be falsely increased. Chloride, Whole Blood 95(L) 97 - 107 mmol/L 02/22/2025 9:06 PM [facility] Glucose, Arterial 116(H) 74 - 99 mg/dL 02/22/2025 9:06 PM [facility] Ionized Calcium, Arterial 4.8 4.6 - 5.1 mg/dL 02/22/2025 9:06 PM [facility] Lactate, Arterial 0.8 0.5 - 1.6 mmol/L 02/22/2025 9:06 PM EDT [facility] Body Temperature 37.0 Celsius 02/22/2025 9:06 PM [facility] pH, Temp Corrected, Arterial 7.45(H) 7.31 - 7.42 02/22/2025 9:06 PM EDT [facility] pCO2, Temp Corrected, Arterial 37 35 - 48 mm Hg 02/22/2025 9:06 PM EDT [facility] pO2, Temp Corrected, Arterial 86 >80 mm Hg 02/22/2025 9:06 PM EDT [facility] Ticket Clerk ID Slim Morton 02/22/2025 9:06 PM [facility] Blood, Arterial Whole blood specimen / Unknown 02/22/2025 9:05 PM EDT 02/22/2025 9:06 PM EDT Daniel Ralph MD LAB POINT OF CARE TE ST DOCKED DEVICE UNSOLICITED RESULTS Final Result Performing Organization Address City/[facility]/ZIP Co de Phone Number [facility] [address] [place] [address] * Blood Culture (Aerobic/Anaerobet Set) (02/22/2025 8:55 [...] GENERAL ORDERABLES Final Result Performing Organization Address [facility] Co de Phone Number [facility] [address] [place] [address] * Ionized calcium, serum (02/22/2025 8:36 PM EDT) Ionized Calcium, Serum 4.8 4.6 - 5.3 mg/dL LAB HEMATOLOGY METHOD 02/22/2025 9:42 PM EDT [facility] Blood Venous blood specimen / Unknown Venipuncture / Unknown 02/22/2025 8:36 PM EDT 02/22/2025 8:53 PM EDT Bobby Parra MD LAB BLOOD ORDERABLES Final R esult Performing Organization Address City/[facility]/ZIP Co de Phone Number [facility] [address] [place] [address] * XR Chest 1 View (02/22/2025 7:05 [...] BLOOD ORDERABLES Final Result Performing Organization Address [facility] Co de Phone Number [facility] [address] [place] [address] * Thyroid Stimulating Hormone, Plasma (02/22/2025 6:41 PM EDT) Thyroid Stimulating Hormone, Plasma 1.03 0.40 - 4.20 uIU/mL 02/22/2025 7:24 PM EDT [facility] Blood Venous blood specimen / Unknown Venipuncture / Unknown 02/22/2025 6:41 PM EDT 02/22/2025 6:47 PM EDT Daniel Gordillo MD LAB BLOOD ORDERABLES Final Result Performing Organization Address City/[facility]/ZIP Co de Phone Number [facility] [address] [place] [address] * Free T4, Plasma (02/22/2025 6:41 PM EDT) Free T4, Plasma 1.3 0.8 - 1.7 ng/dL 02/22/2025 7:24 PM EDT [facility] Blood Venous blood specimen / Unknown Venipuncture / Unknown 02/22/2025 6:41 PM EDT 02/22/2025 6:47 PM EDT aDniel Gordillo MD LAB BLOOD ORDERABLES Final Result Performing Organization Address [facility] [place] [address] * (ABNORMAL) Hemoglobin A1c (02/22/2025 6:41 PM EDT) Hemoglobin A1c 9.2(H) <5.7 % 02/23/2025 1:40 PM EDT [facility] Blood Venous blood specimen / Unknown Venipuncture [...] Adults <6.0% Children and Adolescents <7.5% Source: [place] [employer]. Standards of medical care in diabetes,2017. Diabetes Care.2017:40 (suppl 1):S1-S135. Bobby Parra MD LAB BLOOD ORDERABLES Final R esult Performing Organization Address City/[facility]/[place] [address] * (ABNORMAL) POCT venous blood gas gem (02/22/2025 6:37 PM EDT) pH, Venous 7.28(L) 7.32 - 7.43 02/22/2025 6:38 PM EDT [facility] pCO2, Venous 60(HH) 37 - 52 mm Hg 02/22/2025 6:38 PM EDT [facility] pO2, Venous 41(H) 25 - 40 mm Hg 02/22/2025 6:38 PM EDT [facility] SO2, Venous 72 65 - 80 % 02/22/2025 6:38 PM EDT [facility] Base Excess/Deficit, Venous 0.8 -2 - 3 mmol/L 02/22/2025 6:38 PM EDT [facility] HCO3, Venous 28.2(H) 22 - 26 mmol/L 02/22/2025 6:38 PM EDT [facility] Hemoglobin, Venous 9.2(L) 11.2 - 15.7 g/dL 02/22/2025 6:38 PM EDT [facility] Hematocrit, Venous 28.0(L) 34.0 - 45.0 % 02/22/2025 6:38 PM EDT [facility] Sodium, Venous 126(L) 136 - 145 mmol/L 02/22/2025 6:38 PM EDT [facility] Potassium, Venous 4.6 3.6 - 4.9 mmol/L 02/22/2025 6:38 PM EDT [facility] Comment:Hemolyzed, result ma y be falsely increased. POCT Chloride, Venous 94(L) 97 - 107 mmol/L 02/22/2025 6:38 PM T [facility] Glucose, Venous 139(H) 74 - 99 mg/dL 02/22/2025 6:38 PM EDT [facility] Ionized Calcium, Venous 4.9 4.6 - 5.1 mg/dL 02/22/2025 6:38 PM EDT [facility] Lactate, Venous 0.6 0.5 - 2.2 mmol/L 02/22/2025 6:38 PM EDT [facility] Body Temperature 37.0 Celsius 02/22/2025 6:38 PM EDT [facility] pH, Temp Corrected, Venous 7.28(L) 7.32 - 7.43 02/22/2025 6:38 PM EDT [facility] pCO2, Temp Corrected, Venous 60(HH) 37 - 52 mm Hg 02/22/2025 6:38 PM EDT [facility] pO2, Temp Corrected, Venous 41(H) 25 - 40 mm Hg 02/22/2025 6:38 PM EDT [facility] Ticket Clerk ID Joao Jackson 02/22/2025 6:38 PM EDT [facility] Blood, Venous Whole blood specimen / Unknown 02/22/2025 6:37 PM EDT 02/22/2025 6:38 PM EDT us Generic Provider Poct LAB POINT OF CARE TEST DOCKED DEVICE UNSOLICITED RESULTS Final Result [facility] [address] [place] [address] * INTUBATION (02/22/2025 6:13 PM EDT) Narrative [...] O RDERABLES Final Result Performing Organization Address City/[facility]/ZIP Co de Phone Number [facility] [address] [place] [address] * ND AN ELECTIVE ENDOTRACHEAL AIRWAY, PB ANESTHESIA PLACEHOLDER (01/31/2025 9:58 AM EDT) Narrative Migue Seay CRNA - 01/31/2025 9:58 AM EDT Migue Seay CRNA 01/31/2025 10:45 AM Airway Date/Time: 01/31/2025 9:58 AM Reason: elective Airway not difficult General Information and Staff Patient location during procedure: OR ELDERLY SITTER: Migue Seay CRNA Performed: ELDERLY SITTER Patient Condition Indications for airway management: anesthesia [...] Sears MD ANESTHESIA ORDERABLES Final Result * Hepatitis C Antibody - ED (08/15/2024 5:35 AM EST) Hepatitis C Antibody Negative Negative 08/15/2024 7:08 AM EST [facility] Blood Venous blood specimen / Unknown Venipuncture / Unknown 08/15/2024 5:35 AM EST 08/15/2024 6:06 AM EST Marcy Zhong MD LAB BLOOD ORDERABLES Final Resu lt [facility] [address] [place] [address] * Cytology (04/10/2013 12:00 AM EDT) Specimen from axilla structure obtained by fine needle aspiration biopsy (specimen) 04/10/2013 04/10/2013 2:2 3 PM EDT Narrative [facility] - 04/10/2013 3:59 PM EDT [facility] MR #: [id number] [facility] [address] [place] [id number] 1960 (Age: 52) FW Collect Date: 04/10/2013 00:00 Receipt Date: 04/10/2013 14:23 Page 1 DEPARTMENT OF PATHOLOGY AND LABORATORY MEDICINE CYTOPATHOLOGY REPORT Email: [email or web address] [phone] ATTENDING MD/Practitioner: Kimmie Aguilera MD Service: BCC [...] w/ 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 Jonatan [...] RECEPTOR POSITIVE STATUS (ER POSITIVE) F: A; 98471 ASP INTER, 51993, 78995 SNOMED CODES: A; E03789 [id number] [id number] [id number] [id number] MO2115 P1149 PR9809 A resident has participated in this service. A pathologist has performed and is responsible for the reported pathologic evaluation. 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 Yes Care Teams Armature Repairer Relationship Specialty Start Date End Date Vignesh Pickens MD [address] [place] [address] PCP - General 12/31/24 Cayla Erazo APRN, FREDERICK [address] [facility] [address] [place] [address] Nurse Practitioner Urology 12/20/24
--- OUTSIDE RECORDS SUMMARY | 2025-04-28 20:52 | XMS_ITS | Encounter Summary ---
Author Organization [facility] Address [address] [place] [address] Care Team Providers Care Hearing Impaired Teacher Name Role Phone Daniel Barba MD Primary Care Provider [phone] Judy Huff FLOUR MIXER Unavailable UnavailCayla Carvajal APRN, DNP Unavailable [phone] Vignesh Pickens MD Primary Care Provider + [phone] Encounter Details Date Type Department Care Team (Late Contact Info) Description 07/28/2022 Orders Only External Location [address] [place] [address] Gregg Morgan MD [address] [place] [address] Social History Tobacco Use Types [...] Description 05/16/2025 8:00 AM EDT Office Visit [facility] [place] [address] [place] [address] Karly Gracia MD [address] [place] [address] 05/29/2025 2:40 PM EDT Office Visit [facility] [address] [place] [address] Cayla Erazo, CODING TECHNICIAN, DNP [address] [place] [address] 06/07/2025 1:00 PM EDT Office Visit [facility] [address] [place] [address] Tom Iraheta MD [address] [place] [address] documented as of this encounter [...] documented as of this encounter Care Teams Hearing Impaired Teacher Relationship Specialty Start Date End Date Daniel Barba MD [address] [place] [address] PCP - General 01/02/21 12/30/24 Vignesh Pickens MD [address] [place] [address] PCP - General 12/31/24 Judy Huff, JHONNY [facility] TCM Nurse 08/24/24 08/24/24 Cayla Erazo, LIZANDRO, FREDERICK [address] [place] [address] Nurse Practitioner Urology 12/20/24 documented as of this encounter
--- OUTSIDE RECORDS SUMMARY | 2025-04-28 20:53 | XMS_ITS | Encounter Summary ---
Author Organization [facility] Address [address] [place] [address] Care Team Providers Care Waste Duster Name Role Phone Cayla Erazo APRN, DNP Unavailable [phone] Vignesh Pickens MD Primary Care Provider [phone] Encounter Details Date Type Department Care Team [...] first t rodríguez in the morning (EYE-PATTERN SHOP SUPERVISOR) to steady your nerves or to [...] Description 05/16/2025 8:00 AM EDT Office Visit [facility] [place] [address] [place] [address] Karly Gracia MD [address] [place] [address] 05/29/2025 2:40 PM EDT Office Visit [facility] [address] [place] [address] Cayla Erazo, LINEN AIDE, DNP [address] [place] [address] 06/07/2025 1:00 PM EDT Office Visit [facility] [address] [place] [address] Tom Iraheta MD [address] [place] [address] documented as of this encounter [...] documented as of this encounter Care Teams Waste Duster Relationship Specialty Start Date End Date Vignesh Pickens MD [address] [place] [address] PCP - General 12/31/24 Cayla Erazo APRN, FREDERICK [address] [facility] [address] [place] [address] Nurse Practitioner Urology 12/20/24 documented as of this encounter
--- OUTSIDE RECORDS SUMMARY | 2025-04-28 20:53 | XMS_ITS | Encounter Summary ---
Author Organization [facility] Address [address] [place] [address] Care Team Providers Care Hand Brim Ironer Name Role Phone Daniel Barba MD Primary Care Provider [phone] Cayla Erazo APRN, [facility] Unavailable [phone] Vignesh Pickens MD Primary Care Provider [phone] Encounter Details Date Type Department Care Team (Late st Contact Info) Description 10/19/2024 Orders Only External Location [address] [place] [address] Provider, External Social History Tobacco Use Types [...] drink first t rodríguez in the morning (EYE-AMMONIA REFRIGERATION TECHNICIAN) to steady your nerves or to [...] Description 05/16/2025 8:00 AM EDT Office Visit [facility] [place] [address] [facility], [address] [place] [address] Karly Gracia MD [address] [place] [address] 05/29/2025 2:40 PM EDT Office Visit [facility] [address], 2nd [place] [address] Cayla Erazo APRN, DNP [address] [place] [address] 06/07/2025 1:00 PM EDT Office Visit [facility] [address] [place] [address] Tom Iraheta MD [address] [place] [address] documented as of this encounter [...] as of this encounter Care Teams Hand Brim Ironer Relationship Specialty Start Date End Date Daniel Barba MD [address] [place] [address] PCP - General 01/02/21 12/30/24 Vignesh Pickens MD [address] [place] [address] PCP - General 12/31/24 Cayla Erazo APRN, [facility] [id number] [place] [address] Nurse Practitioner Urology 12/20/24 documented as of this encounter
--- OUTSIDE RECORDS SUMMARY | 2025-04-28 20:53 | XMS_ITS | Encounter Summary ---
Author Organization [facility] Address [address] [place] [address] Care Team Providers Care Assistant Professor Of Archaeology Name Role Phone Cayla Erazo APRN, DNP Unavailable [phone] Vignesh Pickens MD Primary Care Provider [phone] Encounter Details Date Type Department Care Team [...] drink first t rodríguez in the morning (EYE-MATERIALS BUYER) to steady your nerves or to get [...] Description 05/16/2025 8:00 AM EDT Office Visit [facility] [place] [address] [facility], [address] [place] [address] Karly Gracia MD [address] [place] [address] 05/29/2025 2:40 PM EDT Office Visit [facility] [address], 2nd [place] [address] Cayla Erazo APRN, DNP [address] [address] 06/07/2025 1:00 PM EDT Office Visit [facility] [address] [place] [address] Tom Iraheta MD [address] [place] [address] documented as of this [...] this encounter Care Teams Assistant Professor Of Archaeology Relationship Specialty Start Date End Date Vignesh Pickens MD [address] [place] [address] PCP - General 12/31/24 Cayla Erazo APRN, DNP [address] [address] Nurse Practitioner Urology 12/20/24 documented as of this encounter
--- OUTSIDE RECORDS SUMMARY | 2025-04-28 20:53 | XMS_ITS | Encounter Summary ---
Author Organization [facility] Address [address] [place] [address] Care Team Providers Care Tire Servicer Name Role Phone Cayla Erazo APRN, DNP Unavailable [phone] Vignesh Pickens MD Primary Care Provider [phone] Encounter Details Date Type Department Care Team (Late st Contact Info) Description 03/04/2025 Orders Only External Location [address] [place] [address] Provider, External Social History Tobacco Use Types [...] drink first t rodríguez in the morning (EYE-CARTON FILLER) to steady your nerves or to [...] Description 05/16/2025 8:00 AM EDT Office Visit [facility] [place] [address] [facility], [address] [place] [address] Karly Gracia MD [address] [place] [address] 05/29/2025 2:40 PM EDT Office Visit [facility] [address] 2[address] [place] [address] Cayla Erazo, SKI BINDING FITTER AND REPAIRER, DNP [address] [place] [address] 06/07/2025 1:00 PM EDT Office Visit [address] [place] [address] Tom Iraheta MD [address] [place] [address] documented as of this encounter [...] documented as of this encounter Care Teams Tire Servicer Relationship Specialty Start Date End Date Vignesh Pickens MD [address] [place] [address] PCP - General 12/31/24 Cayla Erazo APRN, [facility] [address] [place] [address] Nurse Practitioner Urology 12/20/24 documented as of this encounter
--- OUTSIDE RECORDS SUMMARY | 2025-04-28 20:53 | XMS_ITS | Encounter Summary ---
Author Organization [facility] Address [address] [place] [address] Care Team Providers Care Physical Science Professor Name Role Phone Cayla Erazo APRN, [facility] Unavailable [phone] Vignesh Pickens MD Primary Care Provider [phone] Encounter Details Date Type Department Care Team (Late st Contact Info) Description 03/04/2025 Results Follow-Up [facility] Medicine Virtual Dept. [address] [place] [address] Madonna Singleton MD [address] [place] [address] Social History Tobacco Use Types Packs/Day Years [...] drink first t rodríguez in the morning (EYE-SCHOOL TREASURER) to steady your nerves or to get [...] Description 05/16/2025 8:00 AM EDT Office Visit [facility] [place] [address] [facility], [address] [place] [address] Karly Gracia MD [address] [place] [address] 05/29/2025 2:40 PM EDT Office Visit [place] [facility] [address], 2nd [place] [address] Cayla Erazo, FLANGING MACHINE OPERATOR, DNP [address] [place] [address] 06/07/2025 1:00 PM EDT Office Visit [facility] [address] [place] [address] Tom Iraheta MD [address] [place] [address] documented as of this encounter Visit Diagnoses [...] documented as of this encounter Care Teams Physical Science Professor Relationship Specialty Start Date End Date Vignesh Pickens MD [address] [place] [address] PCP - General 12/31/24 Cayla Erazo APRN, DNP [address] [place] [address] Nurse Practitioner Urology 12/20/24 documented as of this encounter
--- OUTSIDE RECORDS SUMMARY | 2025-04-28 20:53 | XMS_ITS | Encounter Summary ---
Author Organization [facility] Address [address] [place] [address] Care Team Providers Care Bicycle Courier Name Role Phone Cayla Erazo APRN, DNP Unavailable [phone] Vignesh Pickens MD Primary Care Provider [phone] Encounter Details Date Type Department Care Team (Late st Contact Info) Description 03/13/2025 Orders Only External Location [address] [place] [address] Kentrell Padilla APRN [id number] Social History Tobacco Use Types Packs/Day Years [...] drink first t rodríguez in the morning (EYE-CONSTRUCTION EQUIPMENT MECHANIC HELPER) to steady your nerves or to [...] Upcoming Encounters Date Type Department Care Team ([facility] st Contact Info) Description 05/16/2025 8:00 AM EDT Office Visit [facility] [place] [address] [facility], [address] [place] [address] Karly Gracia MD [address] [place] [address] 05/29/2025 2:40 PM EDT Office Visit [facility] [address], 2nd [place] [address] Cayla Erazo APRN, DNP [address] [place] [address] 06/07/2025 1:00 PM EDT Office Visit [facility] [address] [place] [address] Tom Iraheta MD [address] [place] [address] documented as of this encounter Procedures Procedure Name Priority Date/Time Associated Diagnosis Comments XR OUTSIDE IMAGES 03/13/2025 12:23 PM EDT documented in this encounter Results * XR OUTSIDE IMAGES (03/13/2025 12:23 PM EDT) Anatomical Region Laterality Modality Radiographic Alysa ging 03/13/2025 12:2 3 PM EDT Kentrell Padilla APRN IMG XR PROCEDURES Final Re sult documented [...] documented as of this encounter Care Teams Bicycle Courier Relationship Specialty Start Date End Date Vignesh Pickens MD [address] [place] [address] PCP - General 12/31/24 Cayla Erazo APRN, [facility] [address] [facility] [address] [place] [address] Nurse Practitioner Urology 12/20/24 documented as of this encounter
--- OUTSIDE RECORDS SUMMARY | 2025-04-28 20:53 | XMS_ITS | Encounter Summary ---
Author Organization [facility] Address [address] [place] [address] Care Team Providers Care Exhaust Worker Name Role Phone Cayla Erazo APRN, DNP Unavailable [phone] Vignesh Pickens MD Primary Care Provider [phone] Encounter Details Date Type Department Care Team (Late st Contact Info) Description 03/27/2025 Orders Only External Location [address] [place] [address] Henrik Betts PA [address] [place] [address] Social History Tobacco Use Types Packs/Day Years [...] drink first t rodríguez in the morning (EYE-BRICK TESTER) to steady your nerves or to get [...] Description 05/16/2025 8:00 AM EDT Office Visit [facility] [place] [address] [facility], [address] [place] [address] Karly Gracia MD [address] [place] [address] 05/29/2025 2:40 PM EDT Office Visit [facility] [address], [address] [place] [address] Cayla Erazo, ORDER PROCESSING MANAGER, DNP [address] [place] [address] 06/07/2025 1:00 PM EDT Office Visit [facility] [address] [place] [address] Tom Iraheta MD [address] [place] [address] documented as of this encounter [...] documented as of this encounter Care Teams Exhaust Worker Relationship Specialty Start Date End Date Vignesh Pickens MD [address] [place] [address] PCP - General 12/31/24 Cayla Erazo APRN, [facility] [address] [place] [address] Nurse Practitioner Urology 12/20/24 documented as of this encounter
--- OUTSIDE RECORDS SUMMARY | 2025-04-28 20:53 | XMS_ITS | Encounter Summary ---
Author Organization [facility] Address [address] [place] [address] Care Team Providers Care Grain Unloader Name Role Phone Cayla Erazo APRN, DNP Unavailable [phone] Vignesh Pickens MD Primary Care Provider [phone] Encounter Details Date Type Department Care Team (Late st Contact Info) Description 03/04/2025 Orders Only External Location [address] [place] [address] Provider, External Social History Tobacco Use Types [...] drink first t rodríguez in the morning (EYE-MONITOR CAR OPERATOR) to steady your nerves or to [...] Description 05/16/2025 8:00 AM EDT Office Visit [facility] [place] [address] [facility], [address] [place] [address] Karly Gracia MD [address] [place] [address] 05/29/2025 2:40 PM EDT Office Visit [facility] [address], 2nd [place] [address] Cayla Erazo, MIS DIRECTOR, DNP [address] [place] [address] 06/07/2025 1:00 PM EDT Office Visit [facility] [address] [place] [address] Tom Iraheta MD [address] [place] [address] documented as of this encounter [...] documented as of this encounter Care Teams Grain Unloader Relationship Specialty Start Date End Date Vignesh Pickens MD [address] [place] [address] PCP - General 12/31/24 Cayla Erazo APRN, DNP [address] [place] [address] Nurse Practitioner Urology 12/20/24 documented as of this encounter
--- OUTSIDE RECORDS SUMMARY | 2025-04-28 20:53 | XMS_ITS | Encounter Summary ---
Author Organization [facility] Address [address] [place] [address] Care Team Providers Care Account Executive Sales Representative Name Role Phone Cayla Erazo APRN, DNP Unavailable [phone] Vignesh Pickens MD Primary Care Provider [phone] Encounter Details Date Type Department Care Team (Late st Contact Info) Description 03/27/2025 Orders Only External Location [address] [place] [address] Henrik Betts PA [address] [place] [address] Social History Tobacco Use Types Packs/Day Years [...] time in the past 12 m [facility], were you homeless or living in a [...] drink first t rodríguez in the morning (EYE-BINDERY MACHINE OPERATOR) to steady your nerves or [...] Description 05/16/2025 8:00 AM EDT Office Visit [facility] [place] [address] [facility], [address] [place] [address] Karly Gracia MD [address] [place] [address] 05/29/2025 2:40 PM EDT Office Visit [facility] [address], 2nd [place] [address] Cayla Erazo, MEDICAL ACCOUNTANT, DNP [address] [place] [address] 06/07/2025 1:00 PM EDT Office Visit [facility] [address] [place] [address] Tom Iraheta MD [address] [place] [address] documented as of this [...] documented as of this encounter Care Teams Account Executive Sales Representative Relationship Specialty Start Date End Date Vignesh Pickens MD [address] [place] [address] PCP - General 12/31/24 Cayla Erazo APRN, [facility] [address] [place] [address] Nurse Practitioner Urology 12/20/24 documented as of this encounter
--- OUTSIDE RECORDS SUMMARY | 2025-04-28 20:53 | XMS_ITS | Encounter Summary ---
Author Organization [facility] Address [address] [place] [address] Care Team Providers Care Putty And Caulking Supervisor Name Role Phone Daniel Barba MD Primary Care Provider [phone] Judy Huff ACTIVITIES MANAGER Unavailable Unavailabl e Cayla Erazo APRN, DNP Unavailable [phone] Vignesh Pickens MD Primary Care Provider [phone] Encounter Details Date Type Department Care Team (Late Contact Info) Description 08/11/2022 Orders Only External Location [address] [place] [address] Provider, External Social History Tobacco Use Types [...] Description 05/16/2025 8:00 AM EDT Office Visit [facility] [place] [address] [facility], [address] [place] [address] Karly Gracia MD [address] [place] [address] 05/29/2025 2:40 PM EDT Office Visit [facility] [address] 2nd [place] [address] Cayla Erazo, MULTI SITE LEASING CONSULTANT, DNP [address] [place] [address] 06/07/2025 1:00 PM EDT Office Visit [facility] [address] [place] [address] Tom Iraheta MD [address] [place] [address] documented as of this encounter [...] documented as of this encounter Care Teams Putty And Caulking Supervisor Relationship Specialty Start Date End Date Daniel Barba MD [address] [place] [address] PCP - General 01/02/21 12/30/24 Vignesh Pickens MD [address] [place] [address] PCP - General 12/31/24 Judy Huff LPN [facility] TCM Nurse 08/24/24 08/24/24 Cayla Erazo APRN, DNP [address] [place] [address] [address] Nurse Practitioner Urology 12/20/24 documented as of this encounter
--- OUTSIDE RECORDS SUMMARY | 2025-04-28 20:53 | XMS_ITS | Encounter Summary ---
Author Organization [facility] Address [address] [place] [address] Care Team Providers Care Fish Hatchery Assistant Name Role Phone Cayla Erazo APRN, DNP Unavailable [phone] Vignesh Pickens MD Primary Care Provider [phone] Encounter Details Date Type Department Care Team [...] drink first t rodríguez in the morning (EYE-JD EDWARDS CONSULTANT) to steady your nerves or to [...] Description 05/16/2025 8:00 AM EDT Office Visit [facility] [place] [address] [facility], [address] [place] [address] Karly Gracia MD [address] [place] [address] 05/29/2025 2:40 PM EDT [facility] [address], 2nd [place] [address] Cayla Erazo, NATIONAL OPELINT ANALYST, DNP [address] [place] [address] 06/07/2025 1:00 PM EDT Office Visit [facility] [address] [place] [address] Tom Iraheta MD [address] [place] [address] documented as of this [...] documented as of this encounter Care Teams Fish Hatchery Assistant Relationship Specialty Start Date End Date Vignesh Pickens MD [address] [place] [address] PCP - General 12/31/24 Cayla Erazo APRN, [facility] [address] [place] [address] Nurse Practitioner Urology 12/20/24 documented as of this encounter
--- OUTSIDE RECORDS SUMMARY | 2025-04-28 20:53 | XMS_ITS | Encounter Summary ---
Author Organization [facility] Address [address] [place] [address] Care Team Providers Care Assistant Oceanographer Name Role Phone Cayla Erazo APRN, DNP Unavailable [phone] Vignesh Pickens MD Primary Care Provider [phone] Encounter Details Date Type Department Care Team (Late st Contact Info) Description 03/27/2025 Orders Only External Location [address] [place] [address] Henrik Betts PA [address] [place] [address] Social History Tobacco Use Types Packs/Day Years [...] any time in the past 12 m [facility], were you homeless or [...] drink first t rodríguez in the morning (EYE-DRIER TRANSFER CAR OPERATOR) to steady your nerves or [...] Description 05/16/2025 8:00 AM EDT Office Visit [facility] [place] [address] [facility], [address] [place] [address] Karly Gracia MD [address] [place] [address] 05/29/2025 2:40 PM EDT Office Visit [facility] [address] 2nd [place] [address] Cayla Erazo, DISTRIBUTION SUPERVISOR, DNP [address] [place] [address] 06/07/2025 1:00 PM EDT Office Visit [facility] [address] [place] [address] Tom Iraheta MD [address] [place] [address] documented as of this encounter [...] as of this encounter Care Teams Assistant Oceanographer Relationship Specialty Start Date End Date Vignesh Pickens MD [address] [place] [address] PCP - General 12/31/24 Cayla Erazo APRN, [facility] [address] [facility] [address] [place] [address] Nurse Practitioner Urology 12/20/24 documented as of this encounter
--- OUTSIDE RECORDS SUMMARY | 2025-04-28 20:53 | XMS_ITS | Referral Summary ---
Author Organization [employer] ([place], [place], [place], [place]) Address [address] [place] [address] Care Team Providers Care Mosaic Tiler Name Role Phone [facility], Provider Not In The System MD [...] Do you speak a language other than Lao at ho me? No 12/09/2023 Do you [...] nal Result [facility] [address] [place] [address], [facility] [phone] from Last 3 Months or Most Recently Relevant to Health Maintenance Insurance MEDICARE PART A B MEDICAID OF [place] Advance Directives For more information, please contact: [phone] * Full Code (Latest Code Status on [...] Sister First Alternate Healthcare Decision-Maker Care Teams Mosaic Tiler Relationship Specialty Start Date End Date [facility], Provider Not In The System, [place] [address] PCP - General 10/05/23
--- OUTSIDE RECORDS SUMMARY | 2025-04-28 20:53 | XMS_ITS | Encounter Summary ---
Author Organization [facility] Address [address] [place] [address] Care Team Providers Care License Examiner Name Role Phone Cayla Erazo APRN, DNP Unavailable [phone] Vignesh Pickens MD Primary Care Provider [phone] Encounter Details Date Type Department Care Team (Late st Contact Info) Description 03/27/2025 Telephone [facility] [address], 2[address] [place] [address] Doug Chapman MD [address] [place] [address] Social History Tobacco Use Types [...] first t rodríguez in the morning (EYE-SECURITY SYSTEMS SPECIALIST) to steady your nerves or to [...] Concern/Question Reason for Call: LIZANDRO López from [facility] calling to let you know that patient is being admitted with UTI after failed treatment They did a CT scan in ER and it showed bilat hydronephrosis with thickening of urinary bladder/ with retroperitoneal adenopathy underlying neoplasm not excluded. Recommend cysto. Best contact number: Other: [phone] ext [phone] Optimal time of day to reach caller: ANYTIME Additional comments/information from caller: None Note: Please do not reply to this message. Follow-up communication and further actions as a result of this message need to be communicated with the patient directly, if the patient is not active onMyChart. If the patient is active on MyChart, they will receive notification of the communication/outcome via [employer]. documented in this encounter Plan of Treatment Upcoming Encounters Date Type Department Care Team (Late st Contact Info) Description 05/16/2025 8:00 AM EDT Office Visit [facility] [place] [address] [facility], [address] [place] [address] Karly Gracia MD [address] [place] [address] 05/29/2025 2:40 PM EDT Office Visit [facility] [address] [place] [address] Cayla Erazo, LIZANDRO, DNP [address] [place] [address] 06/07/2025 1:00 PM EDT Office Visit [facility] [address] [place] [address] Tom Iraheta MD [address] [place] [address] documented as of this encounter [...] documented as of this encounter Care Teams License Examiner Relationship Specialty Start Date End Date Vignesh Pickens MD [address] [place] [address] PCP - General 12/31/24 Cayla Erazo APRN, DNP [address] [facility] [address] [place] [address] Nurse Practitioner Urology 12/20/24 documented as of this encounter
--- OUTSIDE RECORDS SUMMARY | 2025-04-28 20:53 | XMS_ITS | Encounter Summary ---
Author Organization [facility] Address [address] [place] [address] Care Team Providers Care Line Driver Name Role Phone Cayla Erazo APRN, DNP Unavailable Vignesh Pickens MD Primary Care Provider [phone] Encounter Details Date Type Department Care Team (Late st Contact Info) Description 04/04/2025 Telephone [facility] [address], [address] [place] [address] Doug Chapman MD [address] [place] [address] Social History Tobacco Use Types [...] first t rodríguez in the morning (EYE-ELECTRICAL TESTER BATTERY) to steady your nerves or to get [...] Hopper - 04/04/2025 3:31 PM EDT Contacted [facility] for records and images. [phone]. Spoke with Libby in [place]. [place] in radiology. Pt has appt Tuesday04/08/25. documented in this encounter Plan of Treatment Upcoming Encounters Date Type Department Care Team (Late st Contact Info) Description 05/16/2025 8:00 AM EDT Office Visit [facility] [place] [address] [facility], [address] [place] [address] Karly Gracia MD [address] [place] [address] 05/29/2025 2:40 PM EDT Office Visit [facility] [address] [place] [address] Cayla Erazo, HOME CARE ADMINISTRATOR, DNP [address] [place] [address] 06/07/2025 1:00 PM EDT Office Visit [facility] [address] [place] [address] Tom Iraheta MD [address] [place] [address] documented as of this encounter Visit Diagnoses [...] documented as of this encounter Care Teams Line Driver Relationship Specialty Start Date End Date Vignesh Pickens MD [address] [place] [address] PCP - General 12/31/24 Cayla Erazo APRN, DNP [address] [facility] [address] [place] [address] Nurse Practitioner Urology 12/20/24 documented as of this encounter
--- OUTSIDE RECORDS SUMMARY | 2025-04-28 20:53 | XMS_ITS | Encounter Summary ---
Author Organization [facility] Address [address] [place] [address] Care Team Providers Care Edging Catcher Name Role Phone Cayla Erazo APRN, DNP Unavailable [phone] Vignesh Pickens MD Primary Care Provider [phone]- [phone] Encounter Details Date Type Department Care Team (Late st Contact Info) Description 03/27/2025 Orders Only External Location [address] [place] [address] Henrik Betts PA [address] [place] [address] Social History Tobacco Use Types Packs/Day Years [...] any time in the past 12 m [facility], were you homeless or living [...] drink first t rodríguez in the morning (EYE-TURNAROUND PLANNER) to steady your nerves or to get [...] Description 05/16/2025 8:00 AM EDT Office Visit [facility] [place] [address] [facility], [address] [place] [address] Karly Gracia MD [address] [place] [address] 05/29/2025 2:40 PM EDT Office Visit [facility] [address] [place] [address] Cayla Erazo, MANAGER SAFE, DNP [address] [place] [address] 06/07/2025 1:00 PM EDT Office Visit [facility] [address] [place] [address] Tom Iraheta MD [address] [place] [address] documented as of this encounter [...] documented as of this encounter Care Teams Edging Catcher Relationship Specialty Start Date End Date Vignesh Pickens MD [address] [place] [address] PCP - General 12/31/24 Cayla Erazo APRN, FREDERICK [address] [place] [address] Nurse Practitioner Urology 12/20/24 documented as of this encounter
--- OUTSIDE RECORDS SUMMARY | 2025-04-28 20:53 | XMS_ITS | Clinical Summary ---
Author Organization [facility] ([place], [place], [place], [place]) Address [address] [place] [address] Care Team Providers Care Manager Fitness Name Role Phone [facility], Provider Not In The [...] Do you speak a language other than Sudanese at ho me? No 12/09/2023 Do you [...] - Risk 60-74 years 1-dose series) 2019 COVID-19 VACCINE (3 - Pfizer risk series) 10/28/2020 09/30/2020, 09/09/2020 Hemoglobin A1C 02/24/2024 11/25/2023, 09/22, 01/05/2023 Falls Risk Screening 08/22/2024 Tobacco Cessation Counseling [...] 11.7 % 11/25/2023 5:[address] [facility] Comment: Hemoglobin A1C levels are related to mean glucose during the preceding 2-3 months. Less than 7% demonstrates glycemic control in diabetic patients. Hemoglobin AlC % Suggested Diagnosis > or = 6.5 Diabetic 5.7 - 6.4 Prediabetic <5.7 Non-diabetic eAVG Glucose 289.09 mg/dL 11/25/2023 5:[address] [facility] Blood Venipuncture / Unknown 11/25/2023 11:24 AM EDT 11/25/2023 1:46 PM EDT us Radha Ram MD LAB BLOOD ORDERABLES Fi nal Result [facility] [address] [phone] from Last 3 Months or Most Recently Relevant to Health Maintenance Insurance Critical access hospital [place] [id number] MEDICARE PART A B MEDICAID OF [place] Advance Directives For more information, please contact: [phone] * Full Code (Latest Code Status on [...] Name Relationship Healthcare Agent Relationshi p Communication [place] Dante Sister First Alternate Healthcare Decision-Maker Care Teams Manager Fitness Relationship Specialty Start Date End Date [facility], Provider Not In The System, [place] [address] PCP - General 10/05/23
--- OUTSIDE RECORDS SUMMARY | 2025-04-28 20:53 | XMS_ITS | Encounter Summary ---
Author Organization [facility] Address [address] [place] [address] Care Team Providers Care Java Developer Analyst Name Role Phone Cayla Erazo APRN, DNP Unavailable [phone] Vignesh Pickens MD Primary Care Provider [phone] Encounter Details Date Type Department Care Team (Late st Contact Info) Description 03/13/2025 Orders Only External Location [address] [place] [address] Kentrell Padilla APRN [address] [id number] Social History Tobacco Use Types Packs/Day Years [...] drink first t rodríguez in the morning (EYE-SEARCH ENGINEER) to steady your nerves or to [...] Upcoming Encounters Date Type Department Care Team ([facility] st Contact Info) Description 05/16/2025 8:00 AM EDT Office Visit [facility] [place] [address] [facility], [address] [place] [address] Karly Gracia MD [address] [place] [address] 05/29/2025 2:40 PM EDT Office Visit [facility] [address] [place] [address] Cayla Erazo APRN, DNP [address] [place] [address] 06/07/2025 1:00 PM EDT Office Visit [facility] [address] [place] [address] Tom Iraheta MD [address] [place] [address] documented as of this encounter Procedures Procedure Name Priority Date/Time Associated Diagnosis Comments CT OUTSIDE IMAGES 03/13/2025 12:21 PM EDT documented in this encounter Results * CT OUTSIDE IMAGES (03/13/2025 12:21 PM EDT) Anatomical Region Laterality Modality Computed Tomogra phy 03/13/2025 12:2 1 PM EDT us Kentrell Padilla APRN IMG CT PROCEDURES Final Re sult documented [...] documented as of this encounter Care Teams Java Developer Analyst Relationship Specialty Start Date End Date Vignesh Pickens MD [address] [place] [address] PCP - General 12/31/24 Cayla Erazo APRN, FREDERICK [address] [facility] [address] [place] [address] Nurse Practitioner Urology 12/20/24 documented as of this encounter
--- OUTSIDE RECORDS SUMMARY | 2025-04-28 20:54 | XMS_ITS | Encounter Summary ---
Author Organization [facility] Address [address] [place] [address] Care Team Providers Care Dinkey Engineer Name Role Phone Cayla Erazo APRN, DNP Unavailable Vignesh Pickens MD Primary Care Provider [phone] Encounter Details Date Type Department Care Team (Late st Contact Info) Description 03/01/2025 Telephone [facility] [address] [address] Nohemy, Surgeon, [address] [place], [place] [id number] Social History Tobacco Use Types Packs/Day Years [...] drink first t rodríguez in the morning (EYE-PROFESSIONAL SECURITY OFFICER) to steady your nerves or to [...] No 03/01/2025 8:00 AM EDT Andria Light, JIMI 6. Suicidal Behavior (Lifetime) No 8:00 AM EDT Gayle Light, JIMI documented as of this encounter Plan of Treatment Upcoming Encounters Date Type Department Care Team (Late st Contact Info) Description 05/16/2025 8:00 AM EDT Office Visit [facility] [place] [address] [facility], [address] [place] [address] Karly Gracia MD [address] [place] [address] 05/29/2025 2:40 PM EDT Office Visit [facility] [address] [place] [address] Cayla Erazo, ICEBOX MAN, DNP [address] [place] [address] 06/07/2025 1:00 PM EDT Office Visit [facility] [address] [facility] [address] [place] [address] Tom Iraheta MD [address] [place] [address] documented as of this encounter [...] documented as of this encounter Care Teams Dinkey Engineer Relationship Specialty Start Date End Date Vignesh Pickens MD [address] [place] [address] PCP - General 12/31/24 Cayla Erazo APRN, FREDERICK [address] [facility] [address] [place] [address] Nurse Practitioner Urology 12/20/24 documented as of this encounter
[2025-04-28 21:13] LABS: Microscopic, Urine URINE MICROSCOPIC (MICROSCOPIC)
[2025-04-28 21:17] LABS: Bilirubin,Urine Negative (Negative); Color,Urine YELLOW (Yellow); Glucose,Urine (UA) 1+ (Negative); Ketones,Urine Negative (Negative); Leukocyte Esterase,Urine 3+ (Negative); PH,Urine 6.0 (5.0-8.5); Protein,Urine 2+ (Negative); Specific Gravity, Urine 1.010 (1.005-1.030); Urobilinogen,Urine 0.2 EU/dl (0.2)
[2025-04-28 21:22] LABS: WBC,Urine TNTC #/hpf (0-3)
== END 2025-04-28 23:59 | disposition home or self-care (01) ==
LOC: LAB.DROPOF 20:50
PROVIDERS: PCP Family Medicine; Visit Provider Family Medicine
DX: N30.00 Acute cystitis without hematuria (principal)
CPT/HCPCS: 81001; 87086

== ENCOUNTER 2025-06-07 09:00 | Outpatient (CLI) | payer MEDICARE, MEDICAID, SELFPAY ==
--- OUTSIDE RECORDS SUMMARY | 2017-02-21 10:50 | XMS_ITS | Continuity of Care Document ---
Author Organization [address] [place] [address] Address [address] [facility] [address] [place] [address] Phone Care Team Providers Care Circus Train Supervisor Name Role Phone SkAndrei ivey DPM Unavailable Unavailable Procedures Procedure Date DEBRIDEMENT OF NAIL(S) BY ANY METHOD(S); OR MORE DEBRIDEMENT OF NAIL(S) BY ANY METHOD(S); OR MORE DEBRIDEMENT OF NAIL(S) BY ANY METHOD(S); 6 OR MORE Advance Directives Directive Yes / No Effective Date File Name No Information Encounters Encounter Description Practice Location Reason(s) For Visit Diagnoses Date Provider Providers Copied on Encounter [facility], [id number] [place] [address], [id number], tel:[phone] [facility] Tinea unguiumType 1 diabetes mellitus with hyperglycemia Pain in right toe(s)Pain in left toe(s) 7 Gomez Forbes. [address] [facility], [address] [place] [address], [id number], [place]. tel:[phone] [facility], [address] [facility] 300, [place], [place], [id number], tel:[phone] [facility] Nail Pain (chief complaint) Tinea unguiumPain in right toe(s)Pain in left toe(s) 7 Gomez Forbes. [address] [facility], [facility] 300, [place], [place], [id number], [place]. tel:[phone] [place] [address], [address] [facility], [place], [place], [id number], tel:[phone] [facility] Nail Pain (chief complaint) Tinea unguiumPain in right toe(s)Pain in left toe(s)Type 1 diabetes mellitus with hyperglycemia 7 Gomez [place]i. [address] [facility], [address], [place], [place], [id number], . tel:[phone] Family History Family Member Type Diagnosis Age At Onset No Information Payers Payer name Insurance type Covered constitution party ID Authoriza tion(s) Medicare [facility] [id number] Medicaid [facility] [id number] Social History Type Description Quantity Date Captured Comments Alcohol Use Details Unknown Caffeine Use Details Unknown Tobacco Use Status No Information Smoking Status Never smoker Non-Smoking Tobacco Use Details : No Details Available : No Details Available Sex Female Chief Complaint And Reason For Visit No Information Reason For Referral Reason For Referral No Information History Of Present Illness Encounter Date Complaint History Of Prese nt Illness Nail Pain Attending albina collins has requested treatment for painful, thickened, discolored nails with subungual debris which are difficult to treat. This is a long standing problem in which no other therapies worked or were successful in treatment of this problem. Patient complains of pain and discomfort and is unable to reach their feet. Relief from painful nails has been achieved in the past by debridement. Nail Pain Attending albina collins has requested treatment for diabetic patient with painful, thickened, discolored nails with subungual debris which are difficult to treat. This is a long standing problem in which no other therapies worked or were successful in treatment of this problem. Patient complains of pain and discomfort and is unable to reach their feet. Relief from painful nails has been achieved in the past by debridement. Functional Status Date Functional Assessmen t No Information Instructions Date Instruction Additional Infor mation Debridement and redu ction of painful mycotic nails x10 performed with 5 1/2 curved jaw double spring nail clippers and powered dremel tool w/ sanding disk and application of topical antifungal. Follow up 2-3 months for diabetic foot care. Related to Tinea unguium Debridement and redu ction of painful mycotic nails x10 performed with 5 1/2 curved jaw double spring nail clippers and powered dremel tool w/ sanding disk and application of topical antifungal. Follow up 2-3 months for mycotic nail care. Related to Tinea unguium Debridement and redu ction of painful mycotic nails x10 performed with 5 1/2 curved jaw double spring nail clippers and powered dremel tool w/ sanding disk and application of topical antifungal. Follow up 2-3 months for diabetic foot care. Related to Tinea unguium Assessments Type Assessment Date assessment Tinea unguium assessment Type 1 diabetes mellitus with hy perglycemia assessment Pain in right toe(s) assessment Pain in left toe(s) Patient Care Teams Name Effective Dates (start - stop) Status Members No Information
--- OUTSIDE RECORDS SUMMARY | 2025-04-08 09:20 | XMS_ITS | Encounter Summary ---
Author Organization [facility] Address [address] [place] [address] Care Team Providers Care Public Information Officer Name Role Phone Cayla Erazo APRN, DNP Unavailable [phone] Vignesh Pickens MD Primary Care Provider [phone] Reason for Visit * Reason Comments UTI Encounter Details Date Type Department Care Team (Latest Contact Info) Description 04/08/2025 9:20 AM EDT Office Visit [facility] [address] [place] [address] Cayla Erazo APRN, [facility] [address] [place] [address] Neurogenic bladder (Primary Dx); Hydronephrosis, unspecified hydronephrosis type; Urinary retention; Recurrent UTI; Post-menopausal atrophic vaginitis Social History Tobacco Use Types Packs/Day Years [...] first t rodríguez in the morning (EYE-SUPERVISOR MAINTENANCE AND CUSTODIANS) to steady your nerves or to get [...] Sign Reading Time Taken Comments Blood Pressure 117/74 04/08/2025 9:39 AM EDT Pulse 42 04/08/2025 9:39 AM EDT Temperature - - Respiratory Rate - - Oxygen Saturation - - Inhaled Oxygen Concentration - - Weight 88.5 kg (195 lb) 04/08/2025 9:39 AM EDT Height 162.6 cm (5' 4 ) 04/08/2025 9:39 AM EDT Body Mass Index 33.47 04/08/2025 9:39 AM EDT documented in this encounter Miscellaneous Notes * Progress Notes - Cayla Erazo, SALE PROFESSIONAL DIGITAL MARKETING, DNP - 04/08/2025 9:20 AM EDT [facility] Note HPI: Eileen Tovar is a 64 y.o. F who was initially evaluated in Sep 2024 for diagnosis ofbilateral hydronephrosis in Jul 2024 thought to be 2/2 severe constipation. She was treated for UTIwhile inpatient at [facility] and had improvement in renal function and hydronephrosis with indwelling García catheter that was removed prior to discharge to [facility] in [place]. She is a limited historian, presented in a wheelchair, and is accompanied by a staff member from [facility] without further information provided. She was most [...] useof LUE. She also has PVD, COPD, NE, and DVT treated with 2 blood thinners. She denies ever being impacted with stool before and reportedly sees an outside urologist/bone drier who presents to the SNF, but could [...] canchola, similar to prior ultrasound and CT. -January 2025 cystoscopy and bilateral RPG per Dr. Mitchell that revealed bilateral hydro and poorly draining kidneys bilaterally but no filling defects. Small capacity bladder noted but no masses/lesions -February 2025 Dr. Ad Chapman felt her chronic hydronephrosis given her urologic history which makes it challenging to know when there is a true obstructive process. Not a candidate for SPT due to overlyingbowel and deferred NM renal scan with a garcía in place to try to determine cause of hydro and/or rec onstruction options for NGB given her high risk due to co-morbidities; agreed she does not need a catheter or additional procedures unless they are absolutely necessary; continue her mirabegron RUTIs: -Sep 2024 vaginal estrogen cream and d-mannose, not a Hiprex candidate due to decreased GFR She returns today with indwelling García catheter after recent OSH admission, reportedly for pneumonia, with symptoms of AMS and was catheterized for TONYA/bilaterally hydro on imaging. She is very uncomfortable with the urethra catheter and requests removal today. MAR indicates she has completed previously prescribed Invanz and continues Myrbetriq 50 mg, trospium 20 mg BID, vaginal estrogen cream,and d-mannose. A review of Dr. Ad Chapman's note in February 2025 indicated he felt appropriate for her toremain without cath given chronicity of her hydro and no identifiable cause. I personally reviewed outside records, which are summarized below: 03/27/25: [facility] ER Note: Presented to ER via EMS from SNF for AMS/difficulty to arouse, patient was reportedly at baseline and morning rounds with chills and rigors, currently on 3L NC, some hypoxia with sats in upper 80s. She is pleasantly confused. March 17 was treated for UTI with IM ertapenem. Exam indicated mild wheezes and crackles BTAB. Cr 2.4, GFR 32. UA with 3+ protein, 3+ blood, 3+ LE. Microscopy resulted [id number] RBC, TNTC WBC. CTA chest without PE, CT head without new infarct, COVID and flu neg. CT AP with moderate bilateral hydro with thickened bladder wall and worsening retroperitoneal adenopathy underlying neoplasm not excluded. Admitted for probable UTI. 03/29/25: Cr 1.90 and GFR 27 03/29/25: Discharge note indicates: Admitted for urosepsis with IV Invanz 1 gram daily provided, plans to continue at discharge for 10 days total. Toxic metabolic encephalopathy may be due to polypharmacy vs infection. Per Patient's SNF has been receiving Narcan every morning due to AMS 04/01/25: Urine culture resulted with NG PMHx: Problem List[1] Past 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[2] PSHx: Surgical History[3] FHx: Family History[4] SHx: Social History[5] ROS: See HPI Physical Exam: Vitals: 04/08/25 0939 BP: 117/74 Pulse: (!) 42 Security Solutions Engineer present during entire exam General: Pleasant, alert, in no acute distress, well appearing Pulmonary: no increased work of breathing or signs of respiratory distress. Abdomen: soft, flat, Musculoskeletal: Left AKA, travels by wheelchair, 2 person assist Skin: Warm, dry, and intact Neurologic: grossly normal Psychiatric: oriented to person, place, and time. Mood and affect appeared normal. : Indwelling García catheter draining yellow urine via gravity into bag. Labs: Lab Results Component Value Date HGBA1C 9.2 (H) 02/22/2025 Lab Results Component Value Date GLUCOSE 214 (H) 04/08/2025 CALCIUM 9.3 04/08/2025 NA 137 04/08/2025 K 4.0 04/08/2025 CO2 25 04/08/2025 CL 99 04/08/2025 BUN 24 (H) 04/08/2025 CREATININE 1.87 (H) 04/08/2025 EGFR 29.6 04/08/2025 Cultures: Lab Results Component Value Date URINECX (A) 03/01/2025 10,000 - 100,000 CFU/mL Enterobacter cloacae complex Imagin10/05/23: [facility] at [place] resulted moderate cortical thinning of kidneys and [...] when compared to ultrasound 3 months prior. 02/2025: OSH CT bilateral hydro appears stable down to bladder (Per Dr. Ad Chapman read) 03/27/25: OSH CT AP resulted with mildly enlarged spleen, moderate bilateral HN to level of UVJs withenhancement of urothelium bilaterally. Retroperitoneal adenopathy with increased lymph node size now measuring 2.4 cm and abnormal urinary bladder thickening with surrounding inflammatory reaction. Procedure: A latex catheter was noted in the urethra. The catheter balloon was deflated and the catheter removed easily. Assessment: Elieen Tovar is a 64 y.o. female for follow up of indwelling urethral catheter placed at OSH during admission for UTI. Catheter was removed per patient request and after reviewing Dr. Chapman's recommendation that it was not necessary as long as renal function remained stable. She agreed to recheck of BMP today. She will continue previously prescribed d-mannose and vaginal estrogen cream for UTI prophylaxis and Myrbetriq and trospium for bilateral hydronephrosis. She will follow up in 3 months or earlier as necessary. I will call for CT images to review with Dr. Chapman to determine if further evaluation is necessary. ADDENDUM: BMP stable ADDENDUM: Discussed case and reviewed images with Dr. Ad Chapman who agreed her OSH renal imaging did not appear worse than prior imaging and thus did not believe further treatment was necessary, especially as patient stated previously that she doesn't want anything done about her hydronephrosis, unless it's causing symptoms or affecting her renal function which he felt was reasonable. Plan: 1. Continue Myrbetriq and trospium for UI and HN 2. Continue vaginal estrogen cream and d-mannose for RUTIs 3. Request [employer] images of most recent CT to review adenopathy 4. Follow up in 3 months or earlier as necessary 5. [facility] today Cayla Erazo, SALE PROFESSIONAL DIGITAL MARKETING, DNP [1] Patient Active Problem List Diagnosis Proteinuria Hypotension GERD without esophagitis Essential (primary) hypertension CAD (coronary artery disease), squaxin coronary artery Controlled diabetes mellitus type II without complication Iron deficiency anemia Second hand smoke exposure Acute kidney injury superimposed on CKD ([facility]/HCC) Arthritis Cellulitis of left knee Chronic respiratory failure COPD (chronic obstructive pulmonary disease) ([facility]/HCC) Dehydration with hyponatremia Diabetes mellitus (CMS/HCC) Hyperlipidemia Restrictive lung disease Stroke ([facility]/HCC) [place] coma scale total score 13-15, unspecified coma timing Pyelonephritis Kidney infection Acquired absence of leg above knee Stage 3 chronic kidney disease ([facility]/HCC) Type 2 diabetes mellitus with diabetic chronic kidney disease ([facility]/HCC) Peripheral vascular disease, unspecified ([facility]/HCC) Prosthetic joint infection ([facility]/HCC) Unspecified hydronephrosis Vitamin D deficiency, unspecified [...] Hx of AKA (above knee amputation), left ([facility]/HCC) PVD (peripheral vascular disease) ([facility]/HCC) Asymptomatic bilateral carotid artery stenosis Sepsis ([facility]) [2] Past 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: Diagnosis Date Anxiety Breast cancer Cerebral infarction, unspecified (CMS/HCC) CVA (cerebral infarction) COPD (chronic obstructive pulmonary disease) ([facility]/HCC) Depression Fibromyalgia History of falling History of [...] BREAST SURGERY N/A Breast Surgery Reconstruction from [facility] BREAST SURGERY N/A Breast Surgery from [facility] CHOLECYSTECTOMY N/A Cholecystotomy from [facility] KIDNEY SURGERY N/A Kidney Surgery from [facility] KNEE SURGERY N/A Knee Surgery from [facility] MASTECTOMY N/A Breast Surgery Mastectomy from [facility] SHOULDER SURGERY Right Shoulder Surgery Right from [facility] [4] Family History Problem Relation Name Age of Onset Cancer Mother Stroke Mother Cancer Father Menorrhagia Father Breast cancer Mother's Sister Cancer Mother's Sister Malig Hyperthermia Neg Hx Anesthesia problems Neg Hx [5] Social History Tobacco Use Smoking status: Former Current packs/day: 0.00 Types: Cigarettes Quit date: 07/22/2022 Years since quittin.7 Passive exposure: Past Smokeless tobacco: Never Vaping Use Vaping status: Never Used Substance Use Topics Alcohol use: Not Currently Drug use: Never documented in this encounter Plan of Treatment Not on file documented as of this encounter Visit Diagnoses Diagnosis Neurogenic bladder- Primary Neurogenic bladder, NOS Hydronephrosis, unspecified hydronephrosis type Urinary retention Unspecified retention of urine Recurrent UTI Urinary tract infection, site not specified Post-menopausal atrophic vaginitis Postmenopausal atrophic vaginitis 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 Rhinovirus 02/23/2025 02/23/2025 Assessment Noted Time PHQ-9 Depression Total Score: 13 025 10:12 AM EST A fall risk assessment has been complete d for the patient 12/31/2024 3:03 PM EDT A Body Mass Index follow-up plan has been documented for the patient 04/10/2025 9:13 AM EDT documented as of this encounter Care Teams Public Information Officer Relationship Specialty Start Date End Date Vignesh Pickens MD [address] [place] [address] PCP - General 12/31/24 Cayla Erazo APRN, DNP [address] [facility] [address] [place] [address] Nurse Practitioner Urology 12/20/24 documented as of this encounter
--- OUTSIDE RECORDS SUMMARY | 2025-06-07 09:04 | XMS_ITS | Referral Summary ---
Author Organization [facility] ([place], [place], [place], [place]) Address [address] [place] [address] Care Team Providers Care Retail General Manager Name Role Phone [facility], Provider Not In The System MD Primary [...] Do you speak a language other than Namibian at ho me? No 12/09/2023 Do you [...] A1C 11.7 % 11/25/2023 5:31 PM EDT [facility] Comment: Hemoglobin A1C levels are related to mean glucose during the preceding 2-3 months. Less than 7% demonstrates glycemic control in diabetic patients. Hemoglobin AlC % Suggested Diagnosis > or = 6.5 Diabetic 5.7 - 6.4 Prediabetic <5.7 Non-diabetic eAVG Glucose 289.09 mg/dL 11/25/2023 5:31 PM EDT [facility] Blood Venipuncture / Unknown 11/25/2023 11:24 AM EDT 11/25/2023 1:46 PM EDT Radah Ram MD LAB BLOOD ORDERABLES Fi nal Result [facility] [address] [place] [address], [facility] [phone] from Last 3 Months or Most Recently Relevant to Health Maintenance Insurance MEDICARE PART A B MEDICAID OF [place] Advance Directives For more information, please contact: [phone] * Full Code (Latest Code Status on [...] Sister First Alternate Healthcare Decision-Maker Care Teams Retail General Manager Relationship Specialty Start Date End Date [facility], Provider Not In The System, [place] [address] PCP - General 10/05/23
--- OUTSIDE RECORDS SUMMARY | 2025-06-07 09:04 | XMS_ITS | Clinical Summary ---
Author Organization [facility] Address [address] [place] [address] Care Team Providers Care Director Integrated Name Role Phone Cayla Erazo APRN, DNP Unavailable [phone] Vignesh Pickens MD Primary Care Provider [phone] Allergies Active Allergy Reactions Criticality Noted Date [...] cerebral infarction 03/04/2025 Dental caries, unspecified 02/27/2025 Hydroureter 01/03/2025 History of stroke 12/31/2024 Hx [...] disease, stage 3a 10/12/2024 Urinary retention 09/26/2024 Post-menopausal atrophic vaginitis 09/26/2024 Cyst of kidney, acquired 09/21/2024 Insomnia, unspecified 09/21/2024 Pain, unspecified 08/22/2024 Unspecified hydronephrosis 08/21/2024 Other disorders of phosphorus metabolism 024 [...] ureteral calculous obstruction 08/17/2024 Kidney infection 08/16/2024 Huntington coma scale total sco re 13-15, unspecified coma timing 08/15/2024 Unspecified abdominal pain 08/15/2024 Old myocardial [...] Weakness 12/13/2023 Unspecified right bundle-branch block 12/09/2023 Mixed simple and mucopurulent chronic bronchitis 12/05/2023 Other specified disorders of the skin and subcutaneous tissue 11/29/2023 Morbid (severe) obesity due to excess calories 0 10/31/2023 Atrial premature depolarization 10/08/2023 Hyperkalemia 10/05/2023 Hemiplegia and hemiparesis f ollowing cerebral infarction affecting left non-dominant side 10/04/2023 Dyspnea, unspecified 10/04/2023 Chronic diastolic (congestive) heart failure Presence of left artificial knee joint Cellulitis of left knee 01/04/2023 05/25/20 Chronic respiratory failure 01/04/2023 10/11/2022 COPD (chronic obstructive pulmonary disease) 05/25/2023 Dehydration with hyponatremia 01/04/2023 Diabetes mellitus 01/04/2023 05/25/2023 Hyperlipidemia 01/04/2023 05/25/2023 Restrictive lung disease 01/04/2023 023 Stroke 01/04/2023 05/25/2023 Iron deficiency anemia 03/01/2022 Hypotension 06/03/2017 GERD without esophagitis 03/28/2017 CAD (coronary artery disease), [place] coronary a rtery 03/28/2017 Controlled diabetes mellitus [...] Problem Noted Date Diagnosed Date Resolved Date Sepsis 02/22/2025 05/26/2025 Recurrent UTI 09/26/2024 05/12/2025 Tubulo-interstitial nephriti s, not specified as acute or chronic 08/21/2024 05/12/2025 Pyelonephritis 08/15/2024 05/12/2025 Other acute postprocedural pain 12/09/2023 05/12/2025 Acute kidney injury superimposed on CKD 01/04/2023 1 05/12/2025 Arthritis 01/04/2023 05/25/2023 05/26/2025 Second hand smoke exposure 10/04/2022 0 05/12/2025 CKD (chronic kidney disease) stage 3, GFR 30-59 ml/min 03/07/2017 08/29/2023 Encounters Date Type Department Care Team Description 04/08/2025 9:20 AM EDT Office Visit [facility] Urology 0 [facility], [address] [place] [phone] Cayla Erazo, TECH ED TEACHER, DNP Neurogenic bladder (Primary Dx); Hydronephrosis, unspecified hydronephrosis type; Urinary retention; Recurrent UTI; Post-menopausal atrophic vaginitis 04/08/2025 Travel 04/04/2025 Telephone [facility] Urology [address] [place] [phone] Doug Chapman MD 03/27/2025 Orders Only External Location [address] [place] [phone] Henrik Betts PA 03/27/2025 Orders Only External Location [address] [place] [address] Henrik Betts PA 03/27/2025 Orders Only External Location [address] [place] [address] Henrik Betts PA 03/27/2025 Orders Only External Location [address] [place] [phone] Henrik Betts PA 03/27/2025 Telephone [facility] Urology [address] [address] Doug Chapman MD 03/13/2025 Orders Only External Location [address] [place] [address] Kentrell Padilla, TECH ED TEACHER 03/13/2025 Orders Only External Location [address] [place] [address] Kentrell Padilla, TECH ED TEACHER 03/07/2025 10:00 AM EDT Office Visit [facility] [address] [place] [address] Doug Chapman MD Gross hematuria 03/07/2025 Travel from Last 3 Months Immunizations Immunization Administration Dates Next Due Influenza, injectable, quadrivalent, preservativ e free 05/11/2016 [employer] COVID-19 Vaccine (Purple Cap) 12 + 09/30/2020,09/09/2020 [...] drink first t rodríguez in the morning (EYE-MATERIAL ASSISTANT) to steady your nerves or to get rid of a hangover? 0 08/15/2024 CAGE Questionnaire Score 0 024 Utilities Answer Date Recorded In the past 12 months has th e [employer], gas, oil, or water company threatened to [...] 04/08/2025 9:39 AM EDT Plan of Treatment Health Maintenance Due [...] 2004 [facility]-Zoster Vaccines (1 of 2) 2009 [facility]-RSV Vaccine: 60+ Years or (1 - Risk 60-74 years 1-dose series) 2019 BCI-VJPNE-88 Vaccine (3 - Pfizer risk series) 10/28/2020 09/30/2020, 09/09/2020 [facility]- SDOH Screenings 02/18/2025 [facility]-Adult SDOH Screenings 02/18/2025 08/20/2024 [facility]-Influenza Vaccine (#1) 2025 05/11/2016 [facility]-Diabetes: Hemoglobin A1C 05/24/2025 02/22/2025, 03/05/2014 [facility]-Depression Screening 03/07/2026 025, 09/26/2024, 09/13/2022, Additional history exists [facility]-Cervical Cancer Screening Discontinued [facility]-HPV/Cotest Discontinued 04/10/2013, 04/05/2013 [facility]-Pap Smear Discontinued 04/10/2013, 04/05/2013 [facility]-Hepatitis C Screening Completed 08/15/2024 [facility]-Obesity Intervention [...] this topic Medical Devices Implanted Type Area Aircraft Refueller Device Identifier Shelf Expiration Date Model / Serial / Lot Stent Ureteral Tria [employer] Monofilament 7f/24cm - [id number] Implanted:Qty: 1 on 01/31/2025 by Ceci Mitchell MD at [facility] Right: Kidney [id number] 06/14/2027 [id number] / / [id number] Stent Ureteral Tria [employer] Monofilament 7f/24cm - [id number] Implanted:Qty: 1 on 01/31/2025 by Ceci Mitchell MD at [facility] Left: Kidney [id number] 07/02/2027 [id number] / / [id number] Procedures Procedure Name Priority Date/Time Associated Diagnosis Comments CBC W/O DIFFERENTIAL Routine 04/08/2025 10:27 AM EDT Acute kidney injury superimposed on CKD (CMS/HCC) VITAMIN D 25 HYDROXY Routine 04/08/2025 10:27 AM EDT Acute kidney injury superimposed on CKD (CMS/HCC) Chronic kidney disease-mineral and bone disorder (CKD-MBD) PTH INTACT TOTAL Routine 04/08/2025 10:2 7 AM EDT Acute kidney injury superimposed on CKD (CMS/HCC) Chronic kidney disease-mineral and bone disorder (CKD-MBD) RENAL FUNCTION PANEL, PLASMA Routine 04/08/2025 10:27 AM EDT Acute kidney injury superimposed on CKD (CMS/HCC) CYSTATIN C Routine 04/08/2025 10:27 AM EDT Acute kidney injury superimposed on CKD ([facility]/HCC) Stage 3 chronic kidney disease, unspecified whether stage 3a or 3b CKD (CMS/HCC) FERRITIN, SERUM Routine 04/08/2025 10:27 AM EDT Acute kidney injury superimposed on CKD ([facility]/HCC) Anemia due to stage 3 chronic kidney disease, unspecified whether stage 3a or 3b CKD IRON & TOTAL IRON BINDING CAPACITY, PLASMA (INCLUDES TRANSFERRIN) Routine 04/08/2025 10:27 AM EDT Acute kidney injury superimposed on CKD ([facility]/HCC) Anemia due to stage 3 chronic kidney disease, unspecified whether stage 3a or 3b CKD XR OUTSIDE IMAGES 03/27/2025 12: [address] OUTSIDE IMAGES 03/27/2025 12: [address] OUTSIDE IMAGES 03/27/2025 12: [address] OUTSIDE IMAGES 03/27/2025 12: 35 PM EDT XR OUTSIDE IMAGES 03/13/2025 12: [address] OUTSIDE IMAGES 03/13/2025 12: 21 PM EDT HEMOGLOBIN A1C Add-On 02/22/2025 6:41 PM EDT HEPATITIS C ANTIBODY - ED W/REFLEX TO HCV QUANT PCR STAT 08/15/2024 5:35 AM EST CYTO DATA CONVERSION Routine 04/10/2013 12:00 AM EDT from Last 3 Months or Most Recently Relevant to Health Maintenance Results * (ABNORMAL) Cystatin C (04/08/2025 10:27 AM EDT) Cystatin C 2.71(H) 0.61 - 0.95 mg/L 04/08/2025 4:11 PM EDT [facility] Blood Venous blood specimen / Unknown Venipuncture / Unknown 04/08/2025 10:27 AM EDT 04/08/2025 10:28 AM EDT us Tom Iraheta MD LAB BLOOD ORDERABLES Final Resul t [facility] [address] [place] [address] * (ABNORMAL) Iron & Total Iron Binding Capacity, Plasma (Includes Transferrin) (04/08/2025 10:27 AM EDT) Pathologist [facility] Iron, Plasma 40 30 - 160 ug/dL 04/08/2025 12:33 PM EDT [facility] Transferrin, Plasma 191(L) 200 - 360 mg/dL 04/08/2025 12:33 PM EDT [facility] Total Iron Binding Capacity, Plasma 239(L) 240 - 450 ug/mL 04/08/2025 12:33 PM EDT [facility] Transferrin Saturation 17 14 - 50 % 04/08/2025 12:33 PM EDT [facility] Blood Venous blood specimen / Unknown Venipuncture / Unknown 04/08/2025 10:27 AM EDT 04/08/2025 10:28 AM EDT us Tom Iraheta MD LAB BLOOD ORDERABLES Final Resul t [facility] [address] [place] [address] * (ABNORMAL) Vitamin D 25 Hydroxy (04/08/2025 10:27 AM EDT) Vitamin D 25 Hydroxy 83.3(H) 20.0 - 80.0 ng/mL 04/08/2025 11:18 PM EDT [facility] Blood Venous blood specimen / Unknown Venipuncture / Unknown 04/08/2025 10:27 AM EDT 04/08/2025 10:28 AM EDT Narrative [facility] - 04/08/2025 11:18 PM EDT Testing performed on [employer] Utility Helicopter Repairer, standardized against NIST SRM 2972. When testing [...] MD LAB BLOOD ORDERABLES Final Resul t [facility] [address] [place] [address] * (ABNORMAL) CBC W/O Differential (04/08/2025 10:27 AM EDT) WBC Count 5.64 3.70 - 10.30 10*3/uL LAB HEMATOLOGY METHOD 04/08/2025 12:15 PM EDT [facility] RBC Count 3.61(L) 3.90 - 5.20 10*6/uL LAB HEMATOLOGY METHOD 04/08/2025 12:15 PM EDT [facility] HGB 9.8(L) 11.2 - 15.7 g/dL LAB HEMATOLOGY METHOD 04/08/2025 12:15 PM EDT [facility] HCT 30.7(L) 34.0 - 45.0 % LAB HEMATOLOGY METHOD 04/08/2025 12:15 PM EDT [facility] Platelet Count 312 155 - 369 10*3/uL LAB HEMATOLOGY METHOD 04/08/2025 12:15 PM EDT [facility] MCV 85 79 - 98 fL LAB HEMATOLOGY METHOD 04/08/2025 12:15 PM EDT [facility] MCH 27.1 26.0 - 32.0 pg LAB HEMATOLOGY METHOD 04/08/2025 12:15 PM EDT [facility] MCHC 31.9 30.7 - 35.5 g/dL LAB HEMATOLOGY METHOD 04/08/2025 12:15 PM EDT [facility] RDW 15.5(H) 11.5 - 14.5 % LAB HEMATOLOGY METHOD 04/08/2025 12:15 PM EDT [facility] MPV 10.8 8.8 - 12.5 fL LAB HEMATOLOGY METHOD 04/08/2025 12:15 PM EDT [facility] nRBC 0.0 <=0.0 per 100 WBCs LAB HEMATOLOGY METHOD 04/08/2025 12:15 PM EDT [facility] Blood Venous blood specimen / Unknown Venipuncture / Unknown 04/08/2025 10:27 AM EDT 04/08/2025 10:28 AM EDT us Tom Iraheta MD LAB BLOOD ORDERABLES Final Resul t Performing Organization Address City/[facility]/ZIP Co de Phone Number [facility] [address] [place] [address] * PTH Intact Total (04/08/2025 10:27 AM EDT) PTH Intact Total 28 9 - 77 pg/mL 04/08/2025 12:52 PM EDT [facility] Blood Venous blood specimen / Unknown Venipuncture / Unknown 04/08/2025 10:27 AM EDT 04/08/2025 10:28 AM EDT Narrative [facility] - 04/08/2025 12:52 PM EDT Assay performed by immunoassay at the [facility]. Performed on [employer] Helicopter Repairer chemiluminescent immunoassay, tractable to the World Health Organization's first international standard for PTH from the [facility], Code 79/500. Results obtained from different test methods or kits cannot be used interchangeably. us Tom Iraheta MD LAB BLOOD ORDERABLES Final Resul t Performing Organization Address City/[facility]/ZIP Co de Phone Number [facility] [address] [place] [address] * (ABNORMAL) Ferritin (04/08/2025 10:27 AM EDT) Ferritin, Serum 294(H) 13 - 150 ng/mL 04/08/2025 12:42 PM EDT [facility] Blood Venous blood specimen / Unknown Venipuncture / Unknown 04/08/2025 10:27 AM EDT 04/08/2025 10:28 AM EDT us Tom Iraheta MD LAB BLOOD ORDERABLES Final Resul t [facility] [address] [place] [address] * (ABNORMAL) Renal Function Panel, Plasma (04/08/2025 10:27 AM EDT) Glucose, Plasma 214(H) 74 - 99 mg/dL 04/08/2025 12:33 PM EDT [facility] BUN, Plasma 24(H) 8 - 23 mg/dL 04/08/2025 12:33 PM EDT [facility] Creatinine, Plasma 1.87(H) 0.60 - 1.10 mg/dL 04/08/2025 12:33 PM EDT [facility] BUN/Creatinine Ratio 13 04/08/2025 12:33 PM EDT [facility] Sodium, Plasma 137 136 - 145 mmol/L 04/08/2025 12:33 PM EDT [facility] Potassium, Plasma 4.0 3.6 - 4.9 mmol/L 04/08/2025 12:33 PM EDT [facility] Chloride, Plasma 99 97 - 107 mmol/L 04/08/2025 12:33 PM EDT [facility] CO2, Plasma 25 22 - 29 mmol/L 04/08/2025 12:33 PM EDT [facility] Anion Gap 13 6 - 16 mmol/L 04/08/2025 12:33 PM EDT [facility] Total Calcium, Plasma 9.3 8.9 - 10.2 mg/dL 04/08/2025 12:33 PM EDT [facility] Phosphorus, Plasma 2.5 2.5 - 4.5 mg/dL 04/08/2025 12:33 PM EDT [facility] Albumin, Plasma 3.7 3.5 - 5.2 g/dL 04/08/2025 12:33 PM EDT [facility] eGFRcr 29.6 mL/min/1.7 3m*2 04/08/2025 12:33 PM EDT [facility] Comment:Reported eGFRcr in m L/min/1.73m2 is based the CKD-EPI 2020 equation that does not use a race coefficient. Blood Venous blood specimen / Unknown Venipuncture / Unknown 04/08/2025 10:27 AM EDT 04/08/2025 10:28 AM EDT us Tom Iraheta MD LAB BLOOD ORDERABLES Final Resul t [facility] [address] [place] [address] * XR OUTSIDE IMAGES (03/27/2025 12:41 PM EDT) Only the most recent of2 resultswithin the time period is included. Anatomical Region Laterality Modality Radiographic Alysa ging 03/27/2025 12:4 1 PM EDT us Henrik AG IMG XR PROCEDURES Final Result * CT OUTSIDE IMAGES (03/27/2025 12:37 PM EDT) Only the most recent of4 resultswithin the time period is included. Anatomical Region Laterality Modality Computed Tomogra phy 03/27/2025 12:3 7 PM EDT Henrik AG IMG CT PROCEDURES Final Result * (ABNORMAL) Hemoglobin A1c (02/22/2025 6:41 PM EDT) Hemoglobin A1c 9.2(H) <5.7 % 02/23/2025 1:40 PM EDT [facility] Blood Venous blood specimen / Unknown Venipuncture / Unknown 02/22/2025 6:41 PM EDT 02/22/2025 6:47 PM EDT Narrative [facility] - 02/23/2025 1:40 PM EDT HA1C Interpretive Data: Diagnosis of Diabetes: Diabetic > or = 6.5% Pre-diabetic 5.7 to 6.4% Non-diabetic < or = 5.6% Glycemic Targets for Type I and Type II Diabetics: Non- Adults <7.0% Adults <6.0% Children and Adolescents <7.5% Source: [employer] Diabetes Association. Standards of medical care in diabetes,2017. Diabetes Care.2017:40 (suppl 1):S1-S135. Bobby Parra MD LAB BLOOD [place] [address] * Hepatitis C Antibody - ED (08/15/2024 5:35 AM EST) Hepatitis C Antibody Negative Negative 08/15/2024 7:08 AM EST [facility] Blood Venous blood specimen / Unknown Venipuncture / Unknown 08/15/2024 5:35 AM EST 08/15/2024 6:06 AM EST Marcy Zhong MD LAB BLOOD ORDERABLES Final Resu lt Performing Organization Address [facility] [place] [place] [address] * Cytology (04/10/2013 12:00 AM EDT) Specimen from axilla structure obtained by fine needle aspiration biopsy (specimen) 04/10/2013 04/10/2013 2:2 3 PM EDT Narrative [facility] - 04/10/2013 3:59 PM EDT [facility] MR #: [id number] [facility] EILEEN MAYSebastian [place] [address] 1960 (Age: 52) FW Collect Date: 04/10/2013 00:00 Receipt Date: 04/10/2013 14:23 Page 1 DEPARTMENT OF PATHOLOGY AND LABORATORY MEDICINE CYTOPATHOLOGY REPORT Email: [email or web address] ATTENDING MD/Practitioner: Kimmie Aguilera MD Service: BCC [...] w/ in-situ carcinoma (+) for ER / [place] BCC / FNA performed by: Dr. Jonatan [...] RECEPTOR POSITIVE STATUS (ER POSITIVE) F: A; 28115 ASP INTER, [address], [address] SNOMED CODES: A; R00295 X35321 [id number] K76860 M44779 SE0561 P1149 [id number] A resident has participated in this service. A pathologist has performed and is responsible for the reported pathologic evaluation. 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 Yes Care Teams Director Integrated Relationship Specialty Start Date End Date Vignesh Pickens MD [address] [place] [address] PCP - General 12/31/24 Cayla Erazo APRN, FREDERICK [address] [facility] [place] [address] Nurse Practitioner Urology 12/20/24
--- OUTSIDE RECORDS SUMMARY | 2025-06-07 09:04 | XMS_ITS | Clinical Summary ---
Author Organization [facility] Address [address] [place] [address] Phone Care Team Providers Care Aerologist Name Role Phone Foreign Spangler MD, Andrei Olcott Primary Care Provid er Allergies No known [...] on file Sexual Orientation Not on file Plan of Treatment Health Maintenance Due Date Last Done Comments Wellness Exam Medicare 1962 Hepatitis C Screening 1977 DTaP/TDaP/Td (1 - Tdap) 1978 Breast Cancer Screening 1999 Cologuard 2004 Colon Cancer Screening 2004 Colonoscopy 2004 FIT 2004 Sigmoidoscopy 2004 Virtual Colonography 2004 Pneumococcal Vaccine 50+ (1 of 1 - PCV) 2009 Zoster (1 of 2) 2009 Bone Density Screening 2024 COVID-19 Vaccine (2023-2 5 season) 2025 Influenza Vaccine (#1) 2025 Hepatitis B Vaccine Aged Out No longe r eligible based on patient's age to complete this topic Meningococcal B Vaccine Aged Out No l onger eligible based on patient's age to complete this topic Insurance [place] PART A AND B Care Teams Aerologist Relationship Specialty Start Date End Date Andrei Carrasquillo Sr., MD [address] [place] [phone] PCP - General Intelligence Consultant 03/17/16
--- OUTSIDE RECORDS SUMMARY | 2025-06-07 09:04 | XMS_ITS | Encounter Summary ---
Author Organization [facility] Address [address] [place] [address] Care Team Providers Care Paintings Conservator Name Role Phone Daniel Barba MD Primary Care Provider [phone] Judy Huff COMPRESSOR SERVICE TECHNICIAN Unavailable Unavailabl e Cayla Erzao APRN, DNP Unavailable [phone] Vignesh Pickens MD Primary Care Provider [phone] Encounter Details Date Type Department Care Team (Late st Contact Info) Description 07/28/2022 Orders Only External Location [address] [place] [address] Gregg Morgan MD [address] [place] [address] Social History Tobacco Use Types Packs/Day Years [...] as of this encounter Plan of Treatment Not on file documented as of this encounter Procedures Procedure [...] documented as of this encounter Care Teams Paintings Conservator Relationship Specialty Start Date End Date Daniel Barba MD [address] [place] [address] PCP - General 01/02/21 12/30/24 Vignesh Pickens MD [address] [place] [address] PCP - General 12/31/24 Judy Huff, COMPRESSOR SERVICE TECHNICIAN [facility] TCM Nurse 08/24/24 08/24/24 Cayla Erazo APRN, DNP [address] [address] [place] [address] Nurse Practitioner Urology 12/20/24 documented as of this encounter
--- OUTSIDE RECORDS SUMMARY | 2025-06-07 09:04 | XMS_ITS | Encounter Summary ---
Author Organization [facility] Address [address] [place] [address] Care Team Providers Care Line Construction Supervisor Name Role Phone Cayla Erazo APRN, DNP Unavailable [phone] Vignesh Pickens MD Primary Care Provider [phone] Encounter Details Date Type Department Care Team (Late st Contact Info) Description 03/27/2025 Telephone [facility] [address] [place] [address] Doug Chapman MD [address] [place] [address] Social History Tobacco Use Types [...] first t rodríguez in the morning (EYE-BILLET EXAMINER) to steady your nerves or to [...] Call: LIZANDRO López from [facility] calling to let you know that patient is being admitted with UTI after failed treatment They did a CT scan in ER and it showed bilat hydronephrosis with thickening of urinary bladder/ with retroperitoneal adenopathy underlying neoplasm not excluded. Recommend cysto. Best contact number: Other: [phone] ext [phone] Optimal time of day to reach caller: ANYTIME Additional comments/information from caller: None Note: Please do not reply to this message. Follow-up communication and further actions as a result of this message need to be communicated with the patient directly, if the patient is not active onMyChart. If the patient is active on MyChart, they will receive notification of the communication/outcome via [employer]. documented in this encounter Plan of Treatment [...] as of this encounter Care Teams Line Construction Supervisor Relationship Specialty Start Date End Date Vignesh Pickens MD [address] [place] [address] PCP - General 12/31/24 Cayla Erazo APRN, DNP [address] [address] Nurse Practitioner Urology 12/20/24 documented as of this encounter
--- OUTSIDE RECORDS SUMMARY | 2025-06-07 09:04 | XMS_ITS | Encounter Summary ---
Author Organization [facility] Address [address] [place] [address] Care Team Providers Care Second Officer Name Role Phone Cayla Erazo APRN, DNP Unavailable Vignesh Pickens MD Primary Care Provider [phone] Encounter Details Date Type Department Care Team (Late st Contact Info) Description 03/13/2025 Orders Only External Location [address] [place] [address] Kentrell Padilla APRN [address] [phone] Social History Tobacco Use Types Packs/Day Years [...] drink first t rodríguez in the morning (EYE-SPEECH THERAPIST) to steady your nerves or to get [...] 03/13/2025 12:2 3 PM EDT Kentrell Padilla TUFTING SUPERVISOR IMG XR PROCEDURES Final Re sult documented [...] documented as of this encounter Care Teams Second Officer Relationship Specialty Start Date End Date Vignesh Pickens MD [address] [place] [address] PCP - General 12/31/24 Cayla Erazo APRN, DNP [address] [place] [address] Nurse Practitioner Urology 12/20/24 documented as of this encounter
--- OUTSIDE RECORDS SUMMARY | 2025-06-07 09:04 | XMS_ITS | Encounter Summary ---
Author Organization [facility] Address [address] [place] [address] Care Team Providers Care Packer Dried Beef Name Role Phone Cayla Erazo APRN, DNP Unavailable [phone] Vignesh Pickens MD Primary Care Provider [phone] Encounter Details Date Type Department Care Team [...] drink first t rodríguez in the morning (EYE-LEATHER CRAFTSMAN) to steady your nerves or to get [...] documented as of this encounter Care Teams Packer Dried Beef Relationship Specialty Start Date End Date Vignesh Pickens MD [address] [place] [address] PCP - General 12/31/24 Cayla Erazo APRN, DNP [address] [facility] [address] [place] [address] Nurse Practitioner Urology 12/20/24 documented as of this encounter
--- OUTSIDE RECORDS SUMMARY | 2025-06-07 09:04 | XMS_ITS | Encounter Summary ---
Author Organization [facility] Address [address] [place] [address] Care Team Providers Care Rental Sales Associate Name Role Phone Cayla Erazo APRN, DNP Unavailable [phone] Vignesh Pickens MD Primary Care Provider [phone] Encounter Details Date Type Department Care Team (Late st Contact Info) Description 03/13/2025 Orders Only External Location [address] [place] [address] Kentrell Padilla APRN [address] [id number] Social History Tobacco Use Types Packs/Day Years [...] first t rodríguez in the morning (EYE-POWER PLANT SUPERVISOR) to steady your nerves or to [...] 03/13/2025 12:2 1 PM EDT Kentrell Padilla APRN IMG CT PROCEDURES Final [...] documented as of this encounter Care Teams Rental Sales Associate Relationship Specialty Start Date End Date Vignesh Pickens MD [address] [place] [address] PCP - General 12/31/24 Cayla Erazo APRN, DNP [address] [place] [address] Nurse Practitioner Urology 12/20/24 documented as of this encounter
--- OUTSIDE RECORDS SUMMARY | 2025-06-07 09:04 | XMS_ITS | Clinical Summary ---
Author Organization [employer] ([place], [place], [place], [place]) Address [address] [place] [address] Care Team Providers Care General Neurologist Name Role Phone [facility], [...] Do you speak a language other than [place] Islander at ho me? No 12/09/2023 Do [...] Eye Exam 1969 Depression Screening (12+) 1971 Hepatitis C Screening 1977 DTAP/TDAP/TD VACCINES (1 - Tdap) 1978 Pneumococcal 50+ years (1 of 2 - PCV) 1978 Breast Cancer Screening 1999 Shingles Vaccine (Zoster) (1 of 2) 2009 Medicare Initial AWV G0438 04/23/2015 Respiratory Syncytial Virus (RSV) Adult or (1 - Risk 60-74 years 1-dose series) 2019 COVID-19 VACCINE (3 - Pfizer risk series) 10/28/2020 09/30/2020, 09/09/2020 Hemoglobin A1C 02/24/2024 11/25/2023, 09/22, 01/05/2023 Falls Risk Screening 08/22/2024 Tobacco Cessation Counseling and Screening (12+) 12/08/2024 12/09/2023 Influenza Vaccine (#1) 2025 Procedures Procedure Name Priority Date/Time Associated Diagnosis Comments HEMOGLOBIN A1C Routine 11/25/2023 11:24 AM EDT Preop testing from Last 3 Months or Most Recently Relevant to Health Maintenance Results * Hemoglobin A1c (11/25/2023 11:24 AM EDT) Hemoglobin A1C 11.7 % 11/25/2023 5:31 PM EDT [facility] Comment: Hemoglobin A1C levels are related to mean glucose during the preceding 2-3 months. Less than 7% demonstrates glycemic control in diabetic patients. Hemoglobin AlC % Suggested Diagnosis > or = 6.5 Diabetic 5.7 - 6.4 Prediabetic <5.7 Non-diabetic eAVG Glucose 289.09 mg/dL 11/25/2023 5:31 PM EDT [facility] Blood Venipuncture / Unknown 11/25/2023 11:24 AM EDT 11/25/2023 1:46 PM EDT Radha Ram MD LAB BLOOD ORDERABLES Fi nal Result [facility] [address] [phone] from Last 3 Months or Most Recently Relevant to Health Maintenance Insurance MEDICARE PART A B MEDICAID OF [place] Advance Directives For more information, please contact: [phone] * Full Code (Latest Code Status on [...] First Alternate Healthcare Decision-Maker Care Teams General Neurologist Relationship Specialty Start Date End Date [facility], Provider Not In The System, [place] [address] PCP - General 10/05/23
--- OUTSIDE RECORDS SUMMARY | 2025-06-07 09:04 | XMS_ITS | Encounter Summary ---
Author Organization [facility] Address [address] [place] [address] Care Team Providers Care Mirror Department Supervisor Name Role Phone Daniel Barba MD Primary Care Provider [phone] Judy Huff OD GRINDER OPERATOR Unavailable Unavailabl e Cayla Erazo APRN, DNP Unavailable [phone] Vignesh Pikcens MD Primary Care Provider [phone] Encounter Details Date Type Department Care Team (Late st Contact Info) Description 08/11/2022 Orders Only External Location [address] [place] [address] Provider, External Social History Tobacco Use Types [...] documented as of this encounter Care Teams Mirror Department Supervisor Relationship Specialty Start Date End Date Daniel Barba MD [address] [place] [address] PCP - General 01/02/21 12/30/24 Vignesh Pickens MD [address] [place] [address] PCP - General 12/31/24 Judy Huff, OD GRINDER OPERATOR [facility] Nurse 08/24/24 08/24/24 Cayla Erazo, LIZANDRO, DNP [address] [place] [address] Nurse Practitioner Urology 12/20/24 documented as of this encounter
--- OUTSIDE RECORDS SUMMARY | 2025-06-07 09:04 | XMS_ITS | Clinical Summary ---
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) 36439008 (SNOMED CT) 10/25 Active 10/25 Helen Salazar Benign hypertension Presence of left artificial knee joint Z96.652 (ICD-10-CM ) 10/25 Active 10/25 Helen Salazar Presence of left artificial knee joint Hx of MRSA infection 748027886 (SNOMED CT) 10/25 Active 10/25 Helen Salazar H/O: infectious disease Hx of malignant neoplasm of breast 301985920 (SNOMED CT) 03/02 Resolved 03/02 Helen Salazar History of malignant neoplasm of breast Cellulitis of left leg 279101417 (SNOMED CT) 03/02 Resolved 03/02 Helen Salazar Cellulitis of lower limb longterm (current) use of suppressive antibiotics Z79.2 (ICD-10-CM ) 01/14 Inactive 01/14 Helen Salazar long term care phlebotomist (current) use of antibiotics Anemia in chronic diseases(docu ment disease) D63.8 (ICD-10-CM ) 01/14 Active 01/14 Helen Salazar Anemia in other chronic diseases classified elsewhere Chronic respiratory failure with hypoxia 42359745 (SNOMED CT) 01/14 Active 01/14 Helen Salazar Acute respiratory failure COPD 55813285 (SNOMED CT) 01/14 Active 01/14 Helen Salazar Chronic obstructive pulmonary disease DM Type II E11.9 (ICD-10-CM ) 01/14 Inactive 01/14 Helen Salazar Type 2 diabetes mellitus without complications Benign Essential Hypertension 47194008 (SNOMED CT) 01/14 Removed 01/14 eHlen Salazar Benign hypertension Acquired absence of left knee joint 798711392 (SNOMED CT) 03/02 Resolved 03/02 Helen Salazar History of operative procedure on knee Obesity due to excess calories E66.09 (ICD-10-CM ) 03/02 Resolved 03/02 Helen Salazar Other obesity due to excess calories longterm (current) use of anticoagulant s Z79.01 (ICD-10-CM ) 03/02 Resolved 03/02 Helen Salazar longterm (current) use of anticoagulants Staph epi infection B95.7 (ICD-10-CM ) 03/02 Resolved 03/02 Helen Salazar Other staphylococcus as the cause of diseases classified elsewhere Diarrhea 33301238 (SNOMED CT) 09/28 Resolved 09/28 Helen Salazar Diarrhea Staph hominis infection B95.7 (ICD-10-CM ) 09/28 Resolved 09/28 Helen Salazar Other staphylococcus as the cause of diseases classified elsewhere Staph hominis infection B95.7 (ICD-10-CM ) 09/28 Removed 09/28 Arie Dougherty MD Other staphylococcus as the cause of diseases classified elsewhere Diarrhea 75901291 (SNOMED CT) 09/28 Removed 09/28 Arie Dougherty MD Diarrhea Acquired absence of left knee joint 774519844 (SNOMED CT) 03/02 Removed 03/02 Helen Salazar History of operative procedure on knee Cellulitis of left leg 604596527 (SNOMED CT) 03/02 Removed 03/02 Helen Salazar [...] of diseases classified elsewhere long term care phlebotomist (current) use of anticoagulant s Z79.01 (ICD-10-CM ) 03/02 Removed 03/02 Helen Salazar long term care phlebotomist (current) use of anticoagulants Obesity due to excess calories E66.09 (ICD-10-CM ) 03/02 Removed 03/02 Helen Salazar Other obesity due to excess calories Hx of malignant neoplasm of breast 571145765 (SNOMED CT) 03/02 Removed 03/02 Helen Salazar History of malignant neoplasm of breast Medications Medication Instructions Start Date Stop Date Generic Name NDC Provider DOXYCYCLINE MONOHYDRATE 100 MG CAPS Take 1 capsule by mouth twice a day 10/25 doxycycline monohydrate 15653550560 Arie Dougherty MD ceftriaxone recon soln 2GM IV Q24hrs [facility] 02/18 ceftriaxone recon soln Temi Norris Cubicin RF 800mg IV Q48hrs [facility] 02/18 daptomycin Temi Norris DOXYCYCLINE MONOHYDRATE 100 MG CAPS Take 1 capsule by mouth twice a day 02/03 doxycycline monohydrate 58775561096 Arie Dominguez RF 800mg IV Q48hrs [facility] 02/18 daptomycin Nubia Ervin ceftriaxone recon soln 2GM IV Q24hrs [facility] 02/18 ceftriaxone recon soln Nubiadeidre Ervin IPRATROPIUM-ALBUT MIKE 0.5-2.5 (3) MG/3ML SOLN 3 ml by mouth PRN 01/27 ipratropium-albut mike 04318208712 Nubia Minor Gaviscon 95-358 mg/15 mL suspension by mouth four times a day 30 mL aluminum hydrox-magnesium carb 14575511729 Nubia Minor IPRATROPIUM-ALBUT MIKE 0.5-2.5 (3) MG/3ML SOLN using nebulizer every six hours PRN ipratropium-albut mike 02923548608 Nubia Minor BASAGLAR KWIKPEN 100 UNIT/ML SOPN subcutaneously once a day insulin glargine 95972514170 Nubia Minor MUCUS RELIEF D 60-600 MG [id number] by mouth twice a day pseudoephedrine-g uaifenesin 07477090579 Nubia Minor VITAMIN B-12 100 MCG TABS by mouth once a day cyanocobalamin (vitamin b-12) 53213385503 Nubia Minor PERCOCET 5-325 MG TABS 1-2 tablet every four to six hours oxycodone-acetami nophen 48887909798 Nubia Minor BIOTIN 1000 MCG TABS by mouth once a day biotin 91956176995 Nubia Minor GABAPENTIN 800 MG TABS by mouth four times a day as needed gabapentin 02403609131 Nubia Minor ATORVASTATIN CALCIUM 40 MG TABS by mouth every morning Hold while on daptomycin atorvastatin 21614953998 Nubia Minor FERROUS SULFATE 325 (65 Fe) MG TABS by mouth once a day ferrous sulfate 72288517614 Nubia Minor VENLAFAXINE HCL 75 MG TABS by mouth twice a day venlafaxine 69233663458 Nubia Minor CITRACAL MAXIMUM 315-6.25 MG-MCG TABS by mouth twice a day calcium citrate-vitamin d3 71702819956 Nubia Poncho JANUMET XR 50-1000 MG [id number] by mouth twice a day sitagliptin phos-metformin 92836082121 Nubia Minor GNP HYDROCORTISONE/AL OE 1 % CREA Apply to skin twice a day as needed hydrocortisone acetate 64699132176 Nubia Minor MS CONTIN 15 MG CR-TABS by mouth twice a day morphine 20816309307 Nubia Minor OMEPRAZOLE 20 MG TBEC 2 tablet by mouth once a day omeprazole 11230584901 Nubia Minor DOXYCYCLINE HYCLATE 100 MG TABS Take 1 tablet by mouth twice a day 01/11 doxycycline hyclate 49673488542 Nubia Minor CARVEDILOL 12.5 MG TABS by mouth twice a day carvedilol 15206916279 Nubia Minor PROMETHAZINE HCL 25 MG TABS by mouth three times a day as needed promethazine 90525709465 Nubia Minor TIZANIDINE HCL 4 MG TABS by mouth three times a day as needed tizanidine 54624716720 Nubia Minor LACTULOSE 10 GM/15ML SOLN 30 ml by mouth as needed lactulose 42465457009 Nubia Minor COLACE 100 MG CAPS by mouth twice a day as needed docusate sodium 28090339877 Nubia Minor XARELTO TABLET 15 mg 15 mg Take 1 by mouth once a day XARELTO TABLET 15 mg 15 mg Nubia Minor ANASTROZOLE 1 MG TABS by mouth once a day anastrozole 32201103979 Nubia Minor ACETAMINOPHEN 500 MG TABS by mouth every six hours PRN acetaminophen 14292593861 Nubia Minor LOPERAMIDE HCL 2 MG CAPS by mouth once a day PRN loperamide 37142314056 Nubia Minor ASCORBIC ACID 500 MG TABS by mouth 0.5 tab am and 0.5 tab pm ascorbic acid (vitamin c) 57510639387 Nubia Minor BACLOFEN 10 MG TABS by mouth three times a day baclofen 59498679445 Nubia Minor BREO ELLIPTA 100-25 MCG/ACT AEPB every morning fluticasone furoate-vilantero l 54236585565 Nubia Minor BUMETANIDE 2 MG TABS by mouth twice a day bumetanide 91401572153 Nubia Minor CALCIUM 600 1500 (600 Ca) MG TABS by mouth twice a day calcium carbonate 80700369697 Nubia Minor D3 HIGH POTENCY 10 MCG (400 UNIT) TABS by mouth 2.5 units am and 2.5 units pm cholecalciferol (vitamin d3) 69270303015 Nubia Minor PLAVIX 75 MG TABS by mouth every morning clopidogrel 44577387158 Nubia Minor VITAMIN B-12 1000 MCG TABS by mouth every morning cyanocobalamin (vitamin b-12) 37347517688 Nubia Minor FLONASE ALLERGY RELIEF 50 MCG/ACT SUSP intranasally every morning fluticasone propionate 60007628161 Nubia Minor FOSAMAX 70 MG TABS by mouth once a week alendronate 37259069270 Nubia Minor GLIPIZIDE ER 2.5 MG QL63H-DCT by mouth every morning 0.5 tab glipizide 29561149845 Nubia Minor LANTUS SOLOSTAR 100 UNIT/ML SOPN 8 unit subcutaneously every night insulin glargine 79253094552 Nubia Minor IPRATROPIUM-ALBUT MIKE 0.5-2.5 (3) MG/3ML SOLN 3 ml by mouth PRN 0 ipratropium-albut mike 08544482679 Nubia Minor JARDIANCE 10 MG TABS by mouth every morning empagliflozin 10374232859 Nubia Minor MAGNESIUM OXIDE 400 MG TABS by mouth twice a day magnesium oxide 36598563704 Nubia Minor METFORMIN HCL 1000 MG TABS by mouth twice a day metformin 31649606380 Nubia Minor MULTI-VITAMIN HP/MINERALS CAPS by mouth once a day multivitamin,tx-m inerals 12951141394 Nubia Minor ONDANSETRON HCL 4 MG TABS by mouth twice a day PRN ondansetron hcl 04497915822 Nubia Minor PANTOPRAZOLE SODIUM 20 MG TBEC by mouth once a day pantoprazole 00604961125 Nubia Minor PREGABALIN 50 MG CAPS by mouth three times a day pregabalin 30996593664 Nubia Isaac SENNA 8.6 MG TABS by mouth 2 tabs PRN sennosides 40585716824 Nubia Isaac SPIRONOLACTONE 50 MG TABS by mouth once a day spironolactone 37876296698 Nubia Isaac TRAZODONE HCL 150 MG TABS by mouth once a day 2 tabs trazodone 39434600063 Nubia Isaac VALSARTAN 80 MG TABS by mouth twice a day valsartan 16117260434 Nubia Isaac VENLAFAXINE HCL ER 150 MG AH71Y-CPK by mouth every morning venlafaxine 19979325151 Nubia Isaac VANCOMYCIN HCL SOLR 1gm IV q 12 x 6wks [facility] [phone] 10/05 VANCOMYCIN HCL SOLR 76708677904 Libby Cabello JIMI MS CONTIN 15 MG CR-TABS by mouth twice daily 01/11 MORPHINE SULFATE 45567734604 Arie Dougherty MD PERCOCET 5-325 MG TABS 1-2 tabs, every four to six hours, do not exceed 4000mg of acetaminophen per day 01/11 OXYCODONE-ACETAMI NOPHEN 72876987382 Arie Dougherty MD [facility] IRON 325 (65 Fe) MG TABS by mouth daily 01/11 FERROUS SULFATE 88189796244 Arie Dougherty MD COLACE 100 MG CAPS by mouth twice daily as needed 02/19 DOCUSATE SODIUM 36196627732 Arie Dougherty MD DOXYCYCLINE HYCLATE 100 MG TABS take 1 tab po BID 02/19 DOXYCYCLINE HYCLATE 63299908869 Arie Dougherty MD XARELTO TABLET Take one by mouth once daily. 01/11 RIVAROXABAN TABS 37518239299 Arie Dougherty MD COUMADIN 5 MG ORAL TABLET by mouth, AC dinner 10/17 WARFARIN SODIUM 75859785392 Arie Dougherty MD VANCOMYCIN HCL SOLR 1gm IV q 12 x 6wks [facility] [phone] 08/22 VANCOMYCIN HCL SOLR 37878735003 [facility] VANCOMYCIN HCL SOLR 750 mg IV q 12 x 6wks [facility] [phone] 03/31 VANCOMYCIN HCL SOLR 85559437948 [facility] VANCOMYCIN HCL SOLR 750 mg IV q 12 x 6wks [facility] [phone] 08/22 VANCOMYCIN HCL SOLR 67860680519 Daily Lewis RN VENLAFAXINE HCL 75 MG TABS by mouth twice daily 01/11 VENLAFAXINE HCL 56691519435 Kulwant P PROMETHAZINE HCL 25 MG TABS by mouth three times a day as needed 01/11 PROMETHAZINE HCL 24331984020 Kulwant P B-12 100 MCG TABS by mouth daily 09/29 CYANOCOBALAMIN 47669236739 Kulwant P JANUMET XR 50-1000 MG [id number] by mouth twice daily 01/11 SITAGLIPTIN-METFO RMIN HCL 66577196759 Kulwant P TIZANIDINE HCL 4 MG TABS by mouth three times a day as needed 01/11 TIZANIDINE HCL 63362063706 Kulwant P GABAPENTIN 800 MG TABS by mouth four times a day as needed 01/11 GABAPENTIN 64887585063 Kulwant P CARVEDILOL 12.5 MG TABS by mouth twice daily 01/11 CARVEDILOL 14590340037 Kulwant P ANASTROZOLE 1 MG TABS by mouth daily 01/11 ANASTROZOLE 13203376613 Kulwant P CITRACAL MAXIMUM 315-6.25 MG-MCG TABS by mouth twice daily 01/11 CALCIUM CITRATE-VITAMIN D 50618817590 Kulwant P [facility] OMEPRAZOLE 20 MG TBEC 2 tabs by mouth once daily 01/11 OMEPRAZOLE 85529468197 Kulwant P BIOTIN 1000 MCG TABS by mouth daily 01/11 BIOTIN 60103525463 Kulwant P ATORVASTATIN CALCIUM 40 MG TABS by mouth at bedtime 01/11 ATORVASTATIN CALCIUM 39794548846 Kulwant P COUMADIN 5 MG ORAL TABLET by mouth, AC dinner 05/19 WARFARIN SODIUM 83973793751 Kulwant P LACTULOSE SOLN 30mL by mouth as needed 02/19 LACTULOSE SOLN 31773046580 Kulwant P HYDROCORTISONE ACETATE 1 % CREA apply topically twice a day as needed 10/25 HYDROCORTISONE ACETATE 69577466169 Kulwant P MS CONTIN 15 MG CR-TABS by mouth twice daily 11/20 MORPHINE SULFATE 61866652065 Kulwant P [facility] IRON 325 (65 Fe) MG TABS by mouth daily 11/20 FERROUS SULFATE 67071794142 Kulwant P COLACE 100 MG CAPS by mouth twice daily as needed 02/19 DOCUSATE SODIUM 27543624879 Kulwant P PERCOCET 5-325 MG TABS 1-2 tabs, every four to six hours, do not exceed 4000mg of acetaminophen per day 11/20 OXYCODONE-ACETAMI NOPHEN 66462450869 Kulwant P VANCOMYCIN HCL SOLR 1gm IV q 12 x 6wks [facility] [phone] 08/22 VANCOMYCIN HCL SOLR 66276081926 [facility] Medications Administered No information [...] or Plasma Office Visit: rm #8 DIET ARBITRATOR yes Dietary management education, guidance, and counseling [...] Oral Antibiotic CPT-ca Continue IV antibiotics 2022 CPT-22286 CMP [id number] CBC with Differential 2022 CPT-98033 C- reactive protein [id number], [id number] CPK CPT-J7030 IV Fluids CPT-sl STAT Labs CPT-sl STAT Labs CPT-sl STAT Labs CPT-70449 C- reactive protein CPT-11466 Sedimentation Rate (ESR) 201 02/20/04 CPT-18218 Vancomycin Trough CPT-45143 CMP [id number] CBC with Differential 2015 CPT-96181 C- reactive protein CPT-09734 Sedimentation Rate (ESR) 201 01/31/26 CPT-ca Continue IV antibiotics 2015 CPT-wpc Weekly PICC Line Care 09/28 CPT-43295 CMP [id number] CBC with Differential 2015 CPT-11910 Vancomycin Trough CPT-06317 C- reactive protein CPT-74046 Sedimentation Rate (ESR) 201 01/31/07 CPT-cdpcr C-Diff PCR CPT-isi New IV antibiotic CPT-16960 PICC Line Insertion CPT-75128 [facility] [id number] CBC with Differential 2015 CPT-41805 C- reactive protein CPT-52187 Sedimentation Rate (ESR) 201 01/30/30 CPT-DC Discontinue IV antibiotics 2 CPT-PICREM PICC Removal CPT-ca Continue IV antibiotics 2015 CPT-85380 CMP [id number] CBC with Differential 2015 CPT-22812 C- reactive protein CPT-12829 Sedimentation Rate (ESR) 201 01/27/01 CPT-42911 Vancomycin Trough CPT-ca Continue IV antibiotics 2015 CPT-72324 CMP [id number] CBC with Differential 2015 CPT-84046 C- reactive protein CPT-92347 Sedimentation Rate (ESR) 201 01/27/20 CPT-56084 Vancomycin Trough CPT-ca Continue IV antibiotics 2015 [...]
--- OUTSIDE RECORDS SUMMARY | 2025-06-07 09:05 | XMS_ITS | Encounter Summary ---
Author Organization [facility] Address [address] [place] [address] Care Team Providers Care Photographic Printer Name Role Phone Daniel Barba MD Primary Care Provider [phone] Cayla Erazo APRN, [facility] Unavailable [phone] Vignesh Pickens MD Primary Care Provider [phone] Encounter Details Date Type Department Care Team (Late st Contact Info) Description 10/19/2024 Orders Only External Location [address] [place] [address] Provider, External Social History Tobacco Use Types [...] drink first t rodríguez in the morning (EYE-VICE PRESIDENT OF BUSINESS DEVELOPMENT) to steady your nerves or to [...] documented as of this encounter Care Teams Photographic Printer Relationship Specialty Start Date End Date Daniel Barba MD [address] [place] [address] PCP - General 01/02/21 12/30/24 Vignesh Pickens MD [address] [place] [address] PCP - General 12/31/24 Cayla Erazo APRN, DNP [address] [place] [address] Nurse Practitioner Urology 12/20/24 documented as of this encounter
--- OUTSIDE RECORDS SUMMARY | 2025-06-07 09:05 | XMS_ITS | Encounter Summary ---
Author Organization [facility] Address [address] [place] [address] Care Team Providers Care Induction Coordination Engineer Name Role Phone Cayla Erazo APRN, DNP Unavailable [phone] Vignesh Pickens MD Primary Care Provider [phone] Encounter Details Date Type Department Care Team (Late st Contact Info) Description 03/04/2025 Orders Only External Location [address] [place] [address] Provider, External Social History Tobacco Use Types [...] drink first t rodríguez in the morning (EYE-SPRUE KNOCKER) to steady your nerves or to get [...] 10:14 AM EDT Shruthi Mauricio LPN * How difficult have these problems made it for you to do your work, take care of things at home, or get along with other people? Answer Date of Assessment Author Not difficult at all 03/07/2025 10:14 AM EDT Shruthi Nieves LPN documented as of this encounter Plan of Treatment Not on file documented as of this encounter Procedures Procedure Name Priority Date/Time Associated Diagnosis Comments CT OUTSIDE IMAGES 03/04/2025 7:06 AM EDT documented in this encounter Results * CT OUTSIDE IMAGES (03/04/2025 7:06 AM EDT) Anatomical Region Laterality Modality Computed Tomogra phy 03/04/2025 7:06 AM EDT External Provider IMG CT PROCEDURES Final Result [...] documented as of this encounter Care Teams Induction Coordination Engineer Relationship Specialty Start Date End Date Vignesh Pickens MD [address] [place] [address] PCP - General 12/31/24 Cayla Erazo, LIZANDRO, DNP [address] [place] [address] Nurse Practitioner Urology 12/20/24 documented as of this encounter
--- OUTSIDE RECORDS SUMMARY | 2025-06-07 09:05 | XMS_ITS | Encounter Summary ---
Author Organization [facility] Address [address] [place] [address] Care Team Providers Care Stock And Station Agent Name Role Phone Cayla Erazo APRN, DNP Unavailable [phone] Vignesh Pickens MD Primary Care Provider [phone] Encounter Details Date Type Department Care Team (Late st Contact Info) Description 03/04/2025 Orders Only External Location [address] [place] [address] Provider, External Social History Tobacco Use Types [...] first t rodríguez in the morning (EYE-SENIOR PATROL AGENT) to steady your nerves or to [...] Computed Tomogra phy 03/04/2025 6:08 AM EDT External Provider IMG CT PROCEDURES [...] as of this encounter Care Teams Stock And Station Agent Relationship Specialty Start Date End Date Vignesh Pickens MD [address] [place] [address] PCP - General 12/31/24 Cayla Erazo, LIZANDRO, DNP [address] [place] [address] Nurse Practitioner Urology 12/20/24 documented as of this encounter
--- OUTSIDE RECORDS SUMMARY | 2025-06-07 09:05 | XMS_ITS | Encounter Summary ---
Author Organization [facility] Address [address] [place] [address] Care Team Providers Care Pipe Smoking Machine Operator Name Role Phone Cayla Erazo APRN, [facility] Unavailable [phone] Vignesh Pickens MD Primary Care Provider [phone] Encounter Details Date Type Department Care Team (Late st Contact Info) Description 03/04/2025 Results Follow-Up [facility] Medicine Virtual Dept. [address] [place] [address] Madonna Singleton MD [address] [place] [address] Social History Tobacco Use Types Packs/Day Years [...] drink first t rodríguez in the morning (EYE-POPULATION HEALTH MANAGER) to steady your nerves or to [...] as of this encounter Care Teams Pipe Smoking Machine Operator Relationship Specialty Start Date End Date Vingesh Pickesn MD [address] [place] [address] PCP - General 12/31/24 Cayla Erazo APRN, DNP [address] [place] [address] Nurse Practitioner Urology 12/20/24 documented as of this encounter
[2025-06-07 09:45] LABS: Alanine Aminotransferase 39 U/L (12-78); Albumin Level 3.7 g/dl (3.5-5.0); Albumin/Globulin Ratio 1.2 (1.1-1.8); Alkaline Phosphatase 123 U/L (38-126); Anion Gap 15.1 mEq/L (5-15); Aspartate Amino Transferase 32 U/L (14-36); Bilirubin,Total 0.4 mg/dl (0.2-1.3); Blood Urea Nitrogen 23 mg/dl (7-17); Calcium 9.1 mg/dl (8.4-10.2); Carbon Dioxide 27 mmol/L (22.0-30.0); Chloride 91 mmol/L (98-107); Cholesterol 109 mg/dl (140-200); Creatinine,Serum 1.80 mg/dl (0.52-1.04); Estimated Glomerular Filt Rate 28 ml/min (>60); GFR (African American) 34 ML/MIN (>60); Globulin 3.0 g/dL (1.3-3.2); Glucose 125 mg/dl (74-100); HDL Cholesterol 30 mg/dl (40-60); Potassium 4.1 mmoL/L (3.5-5.1); Sodium 129 mmol/L (136-145); Total Protein,Serum 6.7 g/dl (6.3-8.2); Triglycerides 184 mg/dl (30-150)
[2025-06-07 09:59] LABS: Hemoglobin A1C 8.1 % (4.0-6.0)
== END 2025-06-07 23:59 | disposition home or self-care (01) ==
PROVIDERS: PCP Family Medicine; Visit Provider Family Medicine
DX: E11.9 Type 2 diabetes mellitus without complications (principal); R30.0 Dysuria
CPT/HCPCS: 36415; 80053; 80061; 83036

== ENCOUNTER 2025-06-14 07:34 | Outpatient (CLI) | payer MEDICARE, MEDICAID, SELFPAY | END 2025-06-14 23:59 | disposition home or self-care (01) | PROVIDERS: PCP Nurse Practitioner Family; Visit Provider Nurse Practitioner Family | DX: R50.9 Fever, unspecified (principal); R05.9 Cough, unspecified | CPT/HCPCS: 87275; 87276 ==

== ENCOUNTER 2025-08-07 08:43 | Outpatient (CLI) | payer MEDICARE, MEDICAID, SELFPAY ==
[2025-08-07 08:56] LABS: Coronavirus 19, PCR Not Detected (NotDetected); Influenza A, PCR Not Detected (NotDetected); Influenza B, PCR Not Detected (NotDetected)
--- OUTSIDE RECORDS SUMMARY | 2025-08-07 09:01 | XMS_ITS | Clinical Summary ---
Author Organization [facility] Address [address] [place] [address] Phone Care Team Providers Care Marketing And Communications Officer Name Role Phone Arie Dougherty MD [phone] [ ] Conditions or Problems Problem [...] mellitus with diabetic peripheral angiopathy without gangrene residential (current) use of suppressive antibiotics/D oxycycline Z79.2 (ICD-10-CM ) 01/14 Active 01/14 Helen Salazar residential (current) use of antibiotics Benign Essential Hypertension 88346102 (SNOMED CT) 01/14 Resolved 01/14 Helen Salazar Benign hypertension 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) 22273043 (SNOMED CT) 10/25 Active 10/25 Helen Salazar Benign hypertension Presence of left artificial knee joint Z96.652 (ICD-10-CM ) 10/25 Active 10/25 Helen Salazar Presence of left artificial knee joint Hx of MRSA infection 394881178 (SNOMED CT) 10/25 Active 10/25 Helen Salazar H/O: infectious disease Hx of malignant neoplasm of breast 261280310 (SNOMED CT) 03/02 Resolved 03/02 Helen Salazar History of malignant neoplasm of breast Cellulitis of left leg 579762225 (SNOMED CT) 03/02 Resolved 03/02 Helen Salazar Cellulitis of lower limb residential (current) use of suppressive antibiotics Z79.2 (ICD-10-CM ) 01/14 Inactive 01/14 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 antibiotics Anemia in chronic diseases(docu ment disease) D63.8 (ICD-10-CM ) 01/14 Active 01/14 Helen Salazar Anemia in other chronic diseases classified elsewhere Chronic respiratory failure with hypoxia 00415430 (SNOMED CT) 01/14 Active 01/14 Helen Salazar Acute respiratory failure COPD 91230360 (SNOMED CT) 01/14 Active 01/14 Helen Salazar Chronic obstructive pulmonary disease DM Type II E11.9 (ICD-10-CM ) 01/14 Inactive 01/14 Helen Salazar Type 2 diabetes mellitus without complications Benign Essential Hypertension 91621029 (SNOMED CT) 01/14 Removed 01/14 Helen Salazar Benign hypertension Acquired absence of left knee joint 328432442 (SNOMED CT) 03/02 Resolved 03/02 Helen Salazar History of operative procedure on knee Obesity due to excess calories E66.09 (ICD-10-CM ) 03/02 Resolved 03/02 Helen Salazar Other obesity due to excess calories residential (current) use of anticoagulant s Z79.01 (ICD-10-CM ) 03/02 Resolved 03/02 Helen Salazar residential (current) use of anticoagulants Staph epi infection B95.7 (ICD-10-CM ) 03/02 Resolved 03/02 Helen Salazar Other staphylococcus as the cause of diseases classified elsewhere Diarrhea 79976687 (SNOMED CT) 09/28 Resolved 09/28 Helen Salazar Diarrhea Staph hominis infection B95.7 (ICD-10-CM ) 09/28 Resolved 09/28 Helen Salazar Other staphylococcus as the cause of diseases classified elsewhere Staph hominis infection B95.7 (ICD-10-CM ) 09/28 Removed 09/28 Arie Dougherty MD Other staphylococcus as the cause of diseases classified elsewhere Diarrhea 27166914 (SNOMED CT) 09/28 Removed 09/28 Arie Dougherty MD Diarrhea Acquired absence of left knee joint 684057375 (SNOMED CT) 03/02 Removed 03/02 Helen Salazar History of operative procedure on knee Cellulitis of left leg 458827876 (SNOMED CT) 03/02 Removed 03/02 Helen Salazar Cellulitis of lower limb Knee, left, subsequent encounter, infection/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 T84.54xD (ICD-10-CM ) 03/02 Active 03/02 Helen Salazar Infection and inflammatory reaction due to internal left knee prosthesis, subsequent encounter Staph epi infection B95.7 (ICD-10-CM ) 03/02 Removed 03/02 Helen Salazar Other staphylococcus as the cause of diseases classified elsewhere residential (current) use of anticoagulant s Z79.01 (ICD-10-CM ) 03/02 Removed 03/02 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 Salazar 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 anticoagulants Obesity due to excess calories E66.09 (ICD-10-CM ) 03/02 Removed 03/02 Helen Salazar Other obesity due to excess calories Hx of malignant neoplasm of breast 880803897 (SNOMED CT) 03/02 Removed 03/02 Helen Salazar History of malignant neoplasm of breast Medications Medication Instructions Start Date Stop Date Generic Name NDC Provider DOXYCYCLINE MONOHYDRATE 100 MG CAPS Take 1 capsule by mouth twice a day 10/25 doxycycline monohydrate 32248975399 Arie Dougherty MD ceftriaxone recon soln 2GM IV Q24hrs [facility] 02/18 ceftriaxone recon soln Temi Norris Cubicin RF 800mg IV Q48hrs [facility] 02/18 daptomycin Temi Norris DOXYCYCLINE MONOHYDRATE 100 MG CAPS Take 1 capsule by mouth twice a day 02/03 doxycycline monohydrate 97042155332 Arie Dominguez RF 800mg IV Q48hrs [facility] 02/18 daptomycin Nubia Ervin ceftriaxone recon soln 2GM IV Q24hrs [facility] 02/18 ceftriaxone recon soln Nubiadeidre Ervin IPRATROPIUM-ALBUT MIKE 0.5-2.5 (3) MG/3ML SOLN 3 ml by mouth PRN 01/27 ipratropium-albut mike 35154044300 Nubia Minor Gaviscon 95-358 mg/15 mL suspension by mouth four times a day 30 mL aluminum hydrox-magnesium carb 75105718786 Nubia Minor IPRATROPIUM-ALBUT MIKE 0.5-2.5 (3) MG/3ML SOLN using nebulizer every six hours PRN ipratropium-albut mike 44949235066 Nubia Minor BASAGLAR KWIKPEN 100 UNIT/ML SOPN subcutaneously once a day insulin glargine 56949011167 Nubia Minor MUCUS RELIEF D 60-600 MG [id number] by mouth twice a day pseudoephedrine-g uaifenesin 36976779057 Nubia Minor VITAMIN B-12 100 MCG TABS by mouth once a day cyanocobalamin (vitamin b-12) 85757490215 Nubia Minor PERCOCET 5-325 MG TABS 1-2 tablet every four to six hours oxycodone-acetami nophen 12831796495 Nubia Minor BIOTIN 1000 MCG TABS by mouth once a day biotin 76577602116 Nubia Minor GABAPENTIN 800 MG TABS by mouth four times a day as needed gabapentin 32117132030 Nubia Minor ATORVASTATIN CALCIUM 40 MG TABS by mouth every morning Hold while on daptomycin atorvastatin 35778188606 Nubia Minor FERROUS SULFATE 325 (65 Fe) MG TABS by mouth once a day ferrous sulfate 56050043979 Nubia Minor VENLAFAXINE HCL 75 MG TABS by mouth twice a day venlafaxine 18795018747 Nubia Minor CITRACAL MAXIMUM 315-6.25 MG-MCG TABS by mouth twice a day calcium citrate-vitamin d3 41392107289 Nubia Poncho JANUMET XR 50-1000 MG [id number] by mouth twice a day sitagliptin phos-metformin 36924087618 Nubia Minor GNP HYDROCORTISONE/AL OE 1 % CREA Apply to skin twice a day as needed hydrocortisone acetate 72646112097 Nubia Minor MS CONTIN 15 MG CR-TABS by mouth twice a day morphine 33303557225 Nubia Minor OMEPRAZOLE 20 MG TBEC 2 tablet by mouth once a day omeprazole 69862119669 Nubia Minor DOXYCYCLINE HYCLATE 100 MG TABS Take 1 tablet by mouth twice a day 01/11 doxycycline hyclate 59315348382 Nubia Minor CARVEDILOL 12.5 MG TABS by mouth twice a day carvedilol 59580398557 Nubia Minor PROMETHAZINE HCL 25 MG TABS by mouth three times a day as needed promethazine 85700836879 Nubia Minor TIZANIDINE HCL 4 MG TABS by mouth three times a day as needed tizanidine 04395448684 Nubia Minor LACTULOSE 10 GM/15ML SOLN 30 ml by mouth as needed lactulose 87324717212 Nubia Minor COLACE 100 MG CAPS by mouth twice a day as needed docusate sodium 41351211160 Nubia Minor XARELTO TABLET 15 mg 15 mg Take 1 by mouth once a day XARELTO TABLET 15 mg 15 mg Nubia Minor ANASTROZOLE 1 MG TABS by mouth once a day anastrozole 45804544418 Nubia Minor ACETAMINOPHEN 500 MG TABS by mouth every six hours PRN acetaminophen 04201519465 Nubia Minor LOPERAMIDE HCL 2 MG CAPS by mouth once a day PRN loperamide 33907383184 Nubia Minor ASCORBIC ACID 500 MG TABS by mouth 0.5 tab am and 0.5 tab pm ascorbic acid (vitamin c) 81084316081 Nubia Minor BACLOFEN 10 MG TABS by mouth three times a day baclofen 40591609261 Nubia Minor BREO ELLIPTA 100-25 MCG/ACT AEPB every morning fluticasone furoate-vilantero l 66826685532 Nubia Minor BUMETANIDE 2 MG TABS by mouth twice a day bumetanide 77682602826 Nubia Minor CALCIUM 600 1500 (600 Ca) MG TABS by mouth twice a day calcium carbonate 76783039925 Nubia Minor D3 HIGH POTENCY 10 MCG (400 UNIT) TABS by mouth 2.5 units am and 2.5 units pm cholecalciferol (vitamin d3) 39426563493 Nubia Minor PLAVIX 75 MG TABS by mouth every morning clopidogrel 67963972076 Nubia Minor VITAMIN B-12 1000 MCG TABS by mouth every morning cyanocobalamin (vitamin b-12) 01417864571 Nubia Minor FLONASE ALLERGY RELIEF 50 MCG/ACT SUSP intranasally every morning fluticasone propionate 97240207307 Nubia Minor FOSAMAX 70 MG TABS by mouth once a week alendronate 18398692697 Nubia Minor GLIPIZIDE ER 2.5 MG [id number] by mouth every morning 0.5 tab glipizide 17472410514 Nubia Minor LANTUS SOLOSTAR 100 UNIT/ML SOPN 8 unit subcutaneously every night insulin glargine 11337931611 Nubia Minor IPRATROPIUM-ALBUT MIKE 0.5-2.5 (3) MG/3ML SOLN 3 ml by mouth PRN 0 ipratropium-albut mike 47310682897 Nubia Minor JARDIANCE 10 MG TABS by mouth every morning empagliflozin 32540632025 Nubia Minor MAGNESIUM OXIDE 400 MG TABS by mouth twice a day magnesium oxide 44034003603 Nubia Minor METFORMIN HCL 1000 MG TABS by mouth twice a day metformin 86597593250 Nubia Minor MULTI-VITAMIN HP/MINERALS CAPS by mouth once a day multivitamin,tx-m inerals 66760023158 Nubia Minor ONDANSETRON HCL 4 MG TABS by mouth twice a day PRN ondansetron hcl 08458199965 Nubia Minor PANTOPRAZOLE SODIUM 20 MG TBEC by mouth once a day pantoprazole 79436798601 Nubia Minor PREGABALIN 50 MG CAPS by mouth three times a day pregabalin 20632748652 Nubia Isaac SENNA 8.6 MG TABS by mouth 2 tabs PRN sennosides 88485151833 Nubia Isaac SPIRONOLACTONE 50 MG TABS by mouth once a day spironolactone 39085392871 Nubia Isaac TRAZODONE HCL 150 MG TABS by mouth once a day 2 tabs trazodone 16654210125 Nubia Isaac VALSARTAN 80 MG TABS by mouth twice a day valsartan 24679754672 Nubia Isaac VENLAFAXINE HCL ER 150 MG [id number] by mouth every morning venlafaxine 46797019621 Nubia Isaac VANCOMYCIN HCL SOLR 1gm IV q 12 x 6wks [facility] [phone] 10/05 VANCOMYCIN HCL SOLR 46879214811 Libby Cabello JIMI MS CONTIN 15 MG CR-TABS by mouth twice daily 01/11 MORPHINE SULFATE 67219284881 Arie Dougherty MD PERCOCET 5-325 MG TABS 1-2 tabs, every four to six hours, do not exceed 4000mg of acetaminophen per day 01/11 OXYCODONE-ACETAMI NOPHEN 35193721055 Arie Dougherty MD [facility] IRON 325 (65 Fe) MG TABS by mouth daily 01/11 FERROUS SULFATE 96201593611 Arie Dougherty MD COLACE 100 MG CAPS by mouth twice daily as needed 02/19 DOCUSATE SODIUM 90827906748 Arie Dougherty MD DOXYCYCLINE HYCLATE 100 MG TABS take 1 tab po BID 02/19 DOXYCYCLINE HYCLATE 68757896684 Arie Dougherty MD XARELTO TABLET Take one by mouth once daily. 01/11 RIVAROXABAN TABS 42811507930 Arie Dougherty MD COUMADIN 5 MG ORAL TABLET by mouth, AC dinner 10/17 WARFARIN SODIUM 26997780483 Arie Dougherty MD VANCOMYCIN HCL SOLR 1gm IV q 12 x 6wks [facility] [phone] 08/22 VANCOMYCIN HCL SOLR 08619429055 [facility] VANCOMYCIN HCL SOLR 750 mg IV q 12 x 6wks [facility] [place] [phone] 03/31 VANCOMYCIN HCL SOLR 53731790507 [facility] VANCOMYCIN HCL SOLR 750 mg IV q 12 x 6wks [facility] [place] [phone]) [phone] 08/22 VANCOMYCIN HCL SOLR 19572592282 Daily [place] RN VENLAFAXINE HCL 75 MG TABS by mouth twice daily 01/11 VENLAFAXINE HCL 59610842805 Kulwant P PROMETHAZINE HCL 25 MG TABS by mouth three times a day as needed 01/11 PROMETHAZINE HCL 50751584460 Kulwant P B-12 100 MCG TABS by mouth daily 09/29 CYANOCOBALAMIN 54581064915 Kulwant P JANUMET XR 50-1000 MG [id number] by mouth twice daily 01/11 SITAGLIPTIN-METFO RMIN HCL 32822994607 Kulwant P TIZANIDINE HCL 4 MG TABS by mouth three times a day as needed 01/11 TIZANIDINE HCL 74442695660 Kulwant P GABAPENTIN 800 MG TABS by mouth four times a day as needed 01/11 GABAPENTIN 99958789271 Kulwant P CARVEDILOL 12.5 MG TABS by mouth twice daily 01/11 CARVEDILOL 70657644604 Kulwant P ANASTROZOLE 1 MG TABS by mouth daily 01/11 ANASTROZOLE 73170085905 Kulwant P CITRACAL MAXIMUM 315-6.25 MG-MCG TABS by mouth twice daily 01/11 CALCIUM CITRATE-VITAMIN D 56592437453 Kulwant P [facility] OMEPRAZOLE 20 MG TBEC 2 tabs by mouth once daily 01/11 OMEPRAZOLE 66752468050 Kulwant P BIOTIN 1000 MCG TABS by mouth daily 01/11 BIOTIN 71913426991 Kulwant P ATORVASTATIN CALCIUM 40 MG TABS by mouth at bedtime 01/11 ATORVASTATIN CALCIUM 24505589842 Kuwlant P COUMADIN 5 MG ORAL TABLET by mouth, AC dinner 05/19 WARFARIN SODIUM 51127101716 Kulwant P LACTULOSE SOLN 30mL by mouth as needed 02/19 LACTULOSE SOLN 03600998175 Kulwant P HYDROCORTISONE ACETATE 1 % CREA apply topically twice a day as needed 10/25 HYDROCORTISONE ACETATE 01061660793 Kulwant P MS CONTIN 15 MG CR-TABS by mouth twice daily 11/20 MORPHINE SULFATE 34671789368 Kulwant P [facility] IRON 325 (65 Fe) MG TABS by mouth daily 11/20 FERROUS SULFATE 33732610848 Kulwant P COLACE 100 MG CAPS by mouth twice daily as needed 02/19 DOCUSATE SODIUM 49042867520 Kulwant P PERCOCET 5-325 MG TABS 1-2 tabs, every four to six hours, do not exceed 4000mg of acetaminophen per day 11/20 OXYCODONE-ACETAMI NOPHEN 03229954969 Kulwant P VANCOMYCIN HCL SOLR 1gm IV q 12 x 6wks [facility] [place] [phone]) [phone] 08/22 VANCOMYCIN HCL SOLR 03841294101 [facility] Medications Administered No information [...] or Plasma Office Visit: rm #8 DIET JACQUARD LACE WEAVER yes Dietary management education, guidance, and counseling [...] Oral Antibiotic CPT-ca Continue IV antibiotics 2022 CPT-76030 CMP [id number] CBC with Differential 2022 CPT-09113 C- reactive protein [id number], [id number] CPK CPT-J7030 IV Fluids CPT-sl STAT Labs CPT-sl STAT Labs CPT-sl STAT Labs CPT-17835 C- reactive protein CPT-47440 Sedimentation Rate (ESR) 201 02/20/04 CPT-00489 Vancomycin Trough CPT-94183 CMP [id number] CBC with Differential 2015 CPT-14970 C- reactive protein CPT-81006 Sedimentation Rate (ESR) 201 01/31/26 CPT-ca Continue IV antibiotics 2015 CPT-wpc Weekly PICC Line Care 09/28 CPT-62740 CMP [id number] CBC with Differential 2015 CPT-94007 Vancomycin Trough CPT-12629 C- reactive protein CPT-92190 Sedimentation Rate (ESR) 201 01/31/07 CPT-cdpcr C-Diff PCR CPT-isi New IV antibiotic CPT-80524 PICC Line Insertion CPT-60335 [facility] [id number] CBC with Differential 2015 CPT-46742 C- reactive protein CPT-76599 Sedimentation Rate (ESR) 201 01/30/30 CPT-DC Discontinue IV antibiotics 2 CPT-PICREM PICC Removal CPT-ca Continue IV antibiotics 2015 CPT-26362 CMP [id number] CBC with Differential 2015 CPT-44942 C- reactive protein CPT-96382 Sedimentation Rate (ESR) 201 01/27/01 CPT-11459 Vancomycin Trough CPT-ca Continue IV antibiotics 2015 CPT-25621 CMP [id number] CBC with Differential 2015 CPT-16749 C- reactive protein CPT-78720 Sedimentation Rate (ESR) 201 01/27/20 CPT-70617 Vancomycin Trough CPT-ca Continue IV antibiotics 2015 [...]
--- OUTSIDE RECORDS SUMMARY | 2025-08-07 09:02 | XMS_ITS | Encounter Summary ---
Author Organization [facility] Address [address] [place] [address] Care Team Providers Care Switchboard Operator Supervisor Name Role Phone Daniel Barba MD Primary Care Provider + [phone] Judy Huff PROFESSOR OF LITERATURE Unavailable Unavailabl e Cayla Erazo APRN, DNP Unavailable [phone] Vignesh Pickens MD Primary Care Provider + [phone] Encounter Details Date Type Department Care Team ([facility] st Contact Info) Description 08/11/2022 Orders Only External Location [address] [place] [address] Provider, External Social History Tobacco Use Types [...] documented as of this encounter Care Teams Switchboard Operator Supervisor Relationship Specialty Start Date End Date Daniel Barba MD [address] [place] [address] PCP - General 01/02/21 12/30/24 [place] [address] PCP - General 12/31/24 Judy Huff, PROFESSOR OF LITERATURE [facility] None TCM Nurse 08/24/24 08/24/24 Cayla Erazo, FLOOR AND WALL APPLIER LIQUID, DNP [address] [facility] [address] [place] [address] Nurse Practitioner Urology 12/20/24 documented as of this encounter
--- OUTSIDE RECORDS SUMMARY | 2025-08-07 09:02 | XMS_ITS | Referral Summary ---
Author Organization [facility] ([place], [place], [place], [place], [place]) Address [address] [place] [address] Care Team Providers Care Mortgage Or Loan Underwriter Name Role Phone [facility], Provider [...] Do you speak a language other than Danish at ho me? No 12/09/2023 Do you [...] A1C 11.7 % 11/25/2023 5:31 PM EDT [facility] Comment: Hemoglobin A1C levels are related to mean glucose during the preceding 2-3 months. Less than 7% demonstrates glycemic control in diabetic patients. Hemoglobin AlC % Suggested Diagnosis > or = 6.5 Diabetic 5.7 - 6.4 Prediabetic <5.7 Non-diabetic eAVG Glucose 289.09 mg/dL 11/25/2023 5:31 PM EDT [facility] Blood Venipuncture / Unknown 11/25/2023 11:24 AM EDT 11/25/2023 1:46 PM EDT Radha Ram MD LAB BLOOD ORDERABLES Fi nal Result [facility] [address] [place] [address], [facility] [phone] from Last 3 Months or Most Recently Relevant to Health Maintenance Insurance MEDICARE PART A B MEDICAID OF [place] Advance Directives For more information, please contact: [phone] * Full Code (Latest Code Status on [...] Sister First Alternate Healthcare Decision-Maker Care Teams Mortgage Or Loan Underwriter Relationship Specialty Start Date End Date [facility], Provider Not In The System, [place] [address] PCP - General 10/05/23
--- OUTSIDE RECORDS SUMMARY | 2025-08-07 09:02 | XMS_ITS | Encounter Summary ---
Author Organization [facility] Address [address] [place] [address] Care Team Providers Care Cash Management Officer Name Role Phone Daniel Barba MD Primary Care Provider + [phone] Cayla Erazo APRN, [facility] Unavailable [phone] Vignesh Pickens MD Primary Care Provider + [phone] Encounter Details Date Type Department Care Team (Late st Contact Info) Description 10/19/2024 Orders Only External Location [address] [place] [address] Provider, External Social History Tobacco Use Types Packs/Day Years Used Date Smoking Tobacco: Former Cigarettes 0 Q uit: 07/22/2022 Passive Smoke Exposure: Past [...] first t rodríguez in the morning (EYE-PRODUCTION CLOTH CUTTER) to steady your nerves or to [...] documented as of this encounter Care Teams Cash Management Officer Relationship Specialty Start Date End Date Daniel Barba MD [address] [place] [address] PCP - General 01/02/21 12/30/24 [place] [address] PCP - General 12/31/24 Cayla Erazo APRN, DNP [address] [facility] [address] [place] [address] Nurse Practitioner Urology 12/20/24 documented as of this encounter
--- OUTSIDE RECORDS SUMMARY | 2025-08-07 09:02 | XMS_ITS | Clinical Summary ---
Author Organization [facility] Address [address] [place] [address] Phone Care Team Providers Care Music Leader Name Role Phone Foreign Spangler MD, Andrei Cudahy Primary Care Provid er Allergies No known [...] 2009 Bone Density Screening 2024 COVID-19 Vaccine (2024-2 6 season) 2025 Influenza Vaccine (#1) 2025 Hepatitis B Vaccine Aged Out No longe r eligible based on patient's age to complete this topic Meningococcal B Vaccine Aged Out No l onger eligible based on patient's age to complete this topic Insurance [place] PART A [place] B Care Teams Music Leader Relationship Specialty Start Date End Date Andrei Carrasquillo Sr., MD [address] [place] [id number] PCP - General Consumer Safety Inspector 03/17/16
--- OUTSIDE RECORDS SUMMARY | 2025-08-07 09:02 | XMS_ITS | Encounter Summary ---
Author Organization [facility] Address [address] [place] [address] Care Team Providers Care Intern Name Role Phone Cayla Erazo APRN, FREDERICK Unavailable [phone] Vignesh Pickens MD Primary Care Provider [phone] Encounter Details Date Type Department Care Team (Late st Contact Info) Description 03/04/2025 Orders Only External Location [address] [place] [address] Provider, External Social History Tobacco Use Types [...] drink first t rodríguez in the morning (EYE-OYSTERMAN) to steady your nerves or to get [...] at all 03/07/2025 10:14 AM EDT Shruthi Hoffman LPN Feeling down, depressed, or hopeless Not at all 03/07/2025 10:14 AM EDT Shruthi Hoffman LPN Patient Health Questionnaire-2 Score 0 03/07/2025 10:14 AM EDT Shruthi Hoffman LPN * How difficult have these problems made it for you to do your work, take care of things at home, or get along with other people? Answer Date of Assessment Author Not difficult at all 03/07/2025 10:14 AM EDT Shruthi Larson LPN documented as of this encounter Plan [...] as of this encounter Care Teams Intern Relationship Specialty Start Date End Date Vignesh Pickens MD [id number] PCP - General 12/31/24 Cayla Erazo, PRINTED CIRCUIT BOARDS PLASMA ETCHER, DNP [address] [facility] [address] [place] [address] Nurse Practitioner Urology 12/20/24 documented as of this encounter
--- OUTSIDE RECORDS SUMMARY | 2025-08-07 09:02 | XMS_ITS | Clinical Summary ---
Author Organization [facility] Address [address] [place] [address] Care Team Providers Care Transmission Superintendent Name Role Phone Cayla Erazo APRN, DNP Unavailable [phone] Vignesh Pickens MD Primary Care Provider [phone] Allergies Active Allergy Reactions Criticality Noted Date [...] without esophagitis 03/28/2017 CAD (coronary artery disease), belkofski coronary a rtery 03/28/2017 Controlled diabetes mellitus [...] stage 3, GFR 30-59 ml/min 03/07/2017 08/29/2023 Immunizations Immunization Administration Dates Next Due Influenza, injectable, quadrivalent, preservativ e free 05/11/2016 Flash Valet COVID-19 Vaccine (Purple Cap) 12 + 09/30/2020,09/09/2020 [...] any time in the past 12 m [facility], were you homeless or [...] drink first t rodríguez in the morning (EYE-FOOD SERVICE CLERK) to steady your nerves or to [...] 2004 Sigmoidoscopy 2004 [facility]-Colorectal Cancer Screening 2004 [facility]-RSV Vaccine: 60+ Years or (1 - Risk 50-74 years 1-dose series) 2009 [facility]-Zoster Vaccines (1 of 2) 2009 ZEG-[id number]-47 Vaccine (3 - Pfizer risk series) 10/28/2020 [...] 03/07/2025, 02/28/2025, Additional history exists HPV Vaccines (No Doses Required) Completed [facility]-HIB Vaccines Aged Out No longer e [...] this topic Medical Devices Implanted Type Area Gis Professor Device Identifier Shelf Expiration Date Model / Serial / Lot Stent Ureteral Tria Firm Monofilament 7f/24cm - [id number] Implanted:Qty: 1 on 01/31/2025 by Ceci Mitchell MD at [facility] Right: Kidney [employer]-[id number] 06/14/2027 [id number] / / [id number] Stent Ureteral [employer] Monofilament 7f/24cm - [id number] Implanted:Qty: 1 on 01/31/2025 by Ceci Mitchell MD at [facility] Left: Kidney [employer]-[id number] 49 07/02/2027 [id number] / / [id number] Procedures Procedure Name Priority Date/Time Associated Diagnosis Comments HEMOGLOBIN A1C Add-On 02/22/2025 6:41 PM EDT HEPATITIS C ANTIBODY - ED W/REFLEX TO HCV QUANT PCR STAT 08/15/2024 5:35 AM EST CYTO DATA CONVERSION Routine 04/10/2013 12:00 AM EDT from Last 3 Months or Most Recently Relevant to Health Maintenance Results * (ABNORMAL) Hemoglobin A1c (02/22/2025 6:41 PM [...] Adults <6.0% Children and Adolescents <7.5% Source: [place] [employer]. Standards of medical care in diabetes,2017. Diabetes Care.2017:40 (suppl 1):S1-S135. Bobby Parra MD LAB BLOOD ORDERABLES Final R esult Performing Organization Address City/[facility]/ZIP Co de Phone Number [facility] [address] [place] [address] * Hepatitis C Antibody - ED (08/15/2024 5:35 AM EST) Hepatitis C Antibody Negative Negative 08/15/2024 7:08 AM EST [facility] Blood Venous blood specimen / Unknown Venipuncture / Unknown 08/15/2024 5:35 AM EST 08/15/2024 6:06 AM EST Marcy Zhong MD LAB BLOOD ORDERABLES Final Resu lt Performing Organization Address [facility] Co de Phone Number [facility] [address] [place] [address] * Cytology (04/10/2013 12:00 AM EDT) Specimen from axilla structure obtained by fine needle aspiration biopsy (specimen) 04/10/2013 04/10/2013 2:2 3 PM EDT Narrative SUNQUEST - 04/10/2013 3:59 PM EDT [facility] MR #: [id number] [facility] [place], [place] [address] 1960 (Age: 52) FW Collect Date: 04/10/2013 00:00 Receipt Date: 04/10/2013 14:23 Page 1 DEPARTMENT OF PATHOLOGY AND LABORATORY MEDICINE CYTOPATHOLOGY REPORT Email: [email or web address] ATTENDING MD/Practitioner: Kimmie Aguilera MD Service: BCC [...] w/ 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 Jonatan [...] RECEPTOR POSITIVE STATUS (ER POSITIVE) F: A; 77939 ASP INTER, [address], [address]60 SNOMED CODES: A; [id number] [id number] V41644 W07494 [id number] FI0806 P1149 FK7590 A resident has participated in this service. A pathologist has performed and is responsible for the reported pathologic evaluation. us Historical Provider LAB PATHOLOGY ORDERABLES Fin al [...] Patient has decision-making capacity? Yes Care Teams Transmission Superintendent Relationship Specialty [place] [id number] PCP - General 12/31/24 Cayla Erazo, LIZANDRO, DNP [address] [address] Nurse Practitioner Urology 12/20/24
--- OUTSIDE RECORDS SUMMARY | 2025-08-07 09:02 | XMS_ITS | Encounter Summary ---
Author Organization [facility] Address [address] [place] [address] Care Team Providers Care Hair Spinning Machine Operator Name Role Phone Daniel Barba MD Primary Care Provider [phone] Judy Huff PULP PRESS TENDER Unavailable Unavailabl e Cayla Erazo APRN, DNP Unavailable [phone] Vignesh Pickens MD Primary Care Provider [phone] Encounter Details Date Type Department Care Team (Late st Contact Info) Description 07/28/2022 Orders Only External Location [address] [place] [address] Gregg Morgan MD [address] [place] [address] Social History Tobacco Use Types Packs/Day Years [...] documented as of this encounter Care Teams Hair Spinning Machine Operator Relationship Specialty Start Date End Date Daniel Barba MD [address] [place] [address] PCP - General 01/02/21 12/30/24 Vignesh Pickens [place] [id number] PCP - General 12/31/24 Judy Huff, PULP PRESS TENDER [facility] None TCM Nurse 08/24/24 08/24/24 Cayla Erazo, MOTOR OVERHAULER, DNP [id number] [place] [address] Nurse Practitioner Urology 12/20/24 documented as of this encounter
--- OUTSIDE RECORDS SUMMARY | 2025-08-07 09:02 | XMS_ITS | Encounter Summary ---
Author Organization [facility] Address [address] [place] [address] Care Team Providers Care Travel Accommodations Rater Name Role Phone Cayla Erazo APRN, DNP Unavailable [phone] Vignesh Pickens MD Primary Care Provider [phone] Encounter Details Date Type Department Care Team (Late st Contact Info) Description 03/13/2025 Orders Only External Location [address] [place] [address] Kentrell Padilla APRN [address] [id number] Social History Tobacco Use Types Packs/Day Years [...] drink first t rodríguez in the morning (EYE-PAD MACHINE OFFBEARER) to steady your nerves or to get [...] 03/13/2025 12:2 3 PM EDT Kentrell Padilla STAFF PHARMAC[facility] IMG XR PROCEDURES Final Re sult documented [...] documented as of this encounter Care Teams Travel Accommodations Rater Relationship Specialty [place] [id number] PCP - General 12/31/24 Cayla Erazo APRN, DNP [address] [facility] [address] [place] [address] Nurse Practitioner Urology 12/20/24 documented as of this encounter
--- OUTSIDE RECORDS SUMMARY | 2025-08-07 09:02 | XMS_ITS | Encounter Summary ---
Author Organization [facility] Address [address] [place] [address] Care Team Providers Care Health And Safety Inspector Name Role Phone Cayla Erazo APRN, DNP Unavailable [phone] Vignesh Pickens MD Primary Care Provider [phone] Encounter Details Date Type Department Care Team (Late st Contact Info) Description 03/13/2025 Orders Only External Location [address] [place] [address] Kentrell Padilla APRN [address] [id number] Social History Tobacco Use Types Packs/Day Years [...] drink first t rodríguez in the morning (EYE-BOOKING CLERK) to steady your nerves or to [...] of this encounter Care Teams Health And Safety Inspector Relationship Specialty Start [place] [id number] PCP - General 12/31/24 Cayla Erazo APRN, DNP [address] [facility] [address] [place] [address] Nurse Practitioner Urology 12/20/24 documented as of this encounter
--- OUTSIDE RECORDS SUMMARY | 2025-08-07 09:02 | XMS_ITS | Encounter Summary ---
Author Organization [facility] Address [address] [place] [address] Care Team Providers Care Parachute Harness Rigger Name Role Phone Cayla Erazo APRN, FREDERICK Unavailable [phone] Vignesh Pickens MD Primary Care Provider [phone] Encounter Details Date Type Department Care Team (Late st Contact Info) Description 03/04/2025 Orders Only External Location [address] [place] [address] Provider, External Social History Tobacco Use Types [...] first t rodríguez in the morning (EYE-CONDUIT INSTALLER) to steady your nerves or to [...] documented as of this encounter Care Teams Parachute Harness Rigger Relationship Specialty Start Date End Date Vignesh Pickens MD [id number] PCP - General 12/31/24 Cayla Erazo, RING ATTACHER, DNP [address] [facility] [address] [place] [address] Nurse Practitioner Urology 12/20/24 documented as of this encounter
--- OUTSIDE RECORDS SUMMARY | 2025-08-07 09:02 | XMS_ITS | Clinical Summary ---
Author Organization [employer] ([place], [place], [place], [place], [place]) Address [address] [place] [address] Care Team Providers Care Settlement Technician Name Role Phone [facility], Provider Not In The System MD [...] Do you speak a language other than Tristanian at ho me? No 12/09/2023 Do you [...] A1C 11.7 % 11/25/2023 5:31 PM EDT [facility] Comment: Hemoglobin A1C levels are related to mean glucose during the preceding 2-3 months. Less than 7% demonstrates glycemic control in diabetic patients. Hemoglobin AlC % Suggested Diagnosis > or = 6.5 Diabetic 5.7 - 6.4 Prediabetic <5.7 Non-diabetic eAVG Glucose 289.09 mg/dL 11/25/2023 5:31 PM EDT [facility] Blood Venipuncture / Unknown 11/25/2023 11:24 AM EDT 11/25/2023 1:46 PM EDT Radha Ram MD LAB BLOOD ORDERABLES Fi nal Result [facility] [address] [phone] from Last 3 Months or Most Recently Relevant to Health [place] [address] MEDICARE PART A B [place] Advance Directives For more information, please contact: [phone] * Full Code (Latest Code Status on [...] Sister First Alternate Healthcare Decision-Maker Care Teams Settlement Technician Relationship Specialty Start Date End Date [facility], Provider Not In The System, [place] [address] PCP - General 10/05/23
== END 2025-08-07 23:59 | disposition home or self-care (01) ==
LOC: LAB.DROPOF 08:44
PROVIDERS: PCP Nurse Practitioner Family; Visit Provider Nurse Practitioner Family
DX: J02.9 Acute pharyngitis, unspecified (principal); R50.9 Fever, unspecified
CPT/HCPCS: 87631